=== PATIENT | male | born 1965 | race Caucasian/White ===

== ENCOUNTER 2023-09-12 10:53 | Outpatient (OUT) | payer OTHER, SELFPAY ==
[2023-09-12 11:24] LABS: Basophils Percent Auto 0.6 % (0.2-2.0); Hematocrit 36.6 % (42.0-54.0); Hemoglobin 12.1 g/dL (14.0-18.0); Immature Granulocytes Abs Auto 0.02 10^3/uL (0.00-0.03); Immature Granulocytes Pct Auto 0.3 % (0.0-0.5); Lymphocytes Absolute Auto 1.9 10^3/uL (1.2-3.8); Lymphocytes Percent Auto 30.4 % (20.5-60.0); Mean Corpuscular HGB Conc 33.1 g/dL (29.9-35.2); Mean Corpuscular Hemoglobin 31.9 pg (25.9-34.0); Mean Corpuscular Volume 96.6 fL (80.0-94.0); Mean Platelet Volume 8.7 fL (9.5-13.5); Monocytes Absolute Auto 0.5 10^3/uL (0.3-0.8); Monocytes Percent Auto 8.4 % (1.7-12.0); Neutrophils Absolute Auto 3.8 10^3/uL (1.4-6.5); Neutrophils Percent Auto 60.3 % (43.0-75.0); Platelet Count 276 10^3/uL (150-450); Red Blood Count 3.79 10^6/uL (4.70-6.10); Red Cell Distribution Width 13.1 % (11.0-15.0); White Blood Count 6.3 10^3/uL (4.0-11.0)
[2023-09-12 12:22] LABS: Estimated Average Glucose 88 mg/dL; Glycohemoglobin A1C 4.7 % (4.5-6.2)
[2023-09-12 16:01] LABS: Alanine Aminotransferase 25 U/L (16-63); Albumin Globulin Ratio 0.9; Albumin Level 3.5 g/dL (3.4-5.0); Alkaline Phosphatase 153 U/L (46-116); Anion Gap 8.8; Aspartate Amino Transferase 24 U/L (15-37); BUN Creatinine Ratio 16.3; Bilirubin Total 0.3 mg/dL (0.2-1.0); Carbon Dioxide 28.4 mmol/L (21.0-32.0); Chloride 107 mmol/L (98-107); Chol HDL Ratio 2.5; Cholesterol 125 mg/dL (<=200); Estimated GFR (African America >60 (>=60); Estimated GFR (Non-African Ame >60 (>=60); Free T3 2.34 pg/mL (2.18-3.98); Glucose 103 mg/dL (74-106); HDL Cholesterol 51 mg/dL (40-60); LDL Cholesterol Calculated 62.8 mg/dL; Potassium 4.2 mmol/L (3.5-5.1); Sodium 140 mmol/L (136-145); Thyroid Stimulating Hormone 1.745 uIU/mL (0.358-3.740); Total Protein 7.5 g/dL (6.4-8.2); Triglycerides 56 mg/dL (<=150); VLDL CHOLESTEROL 11.2 mg/dL
== END 2023-09-12 10:54 | disposition home or self-care (01) ==
PROVIDERS: PCP Family Medicine; Visit Provider Family Medicine
DX: Z00.00 Encounter for general adult medical examination without abnormal findings (principal); Z12.5 Encounter for screening for malignant neoplasm of prostate
CPT/HCPCS: 36415; 80053; 80061; 83036; 84436; 84443; 84481; 85025; G0103

== ENCOUNTER 2023-10-21 13:45 | Outpatient (OUT) | payer OTHER, SELFPAY ==
[2023-10-21 14:22] LABS: Basophils Percent Auto 0.4 % (0.2-2.0); Hematocrit 36.6 % (42.0-54.0); Immature Granulocytes Abs Auto 0.01 10^3/uL (0.00-0.03); Immature Granulocytes Pct Auto 0.1 % (0.0-0.5); Lymphocytes Percent Auto 27.5 % (20.5-60.0); Mean Corpuscular HGB Conc 32.8 g/dL (29.9-35.2); Mean Corpuscular Hemoglobin 30.2 pg (25.9-34.0); Mean Platelet Volume 8.4 fL (9.5-13.5); Monocytes Absolute Auto 0.7 10^3/uL (0.3-0.8); Neutrophils Absolute Auto 4.7 10^3/uL (1.4-6.5); Platelet Count 396 10^3/uL (150-450); Red Blood Count 3.98 10^6/uL (4.70-6.10); Red Cell Distribution Width 12.8 % (11.0-15.0); White Blood Count 7.4 10^3/uL (4.0-11.0)
== END 2023-10-21 13:46 | disposition home or self-care (01) ==
LOC: LAB 13:47
PROVIDERS: PCP Family Medicine; Visit Provider Family Medicine
DX: D50.9 Iron deficiency anemia, unspecified (principal)
CPT/HCPCS: 36415; 82728; 83540; 85025

== ENCOUNTER 2023-11-02 12:29 | Outpatient (OUT) | payer OTHER, SELFPAY ==
[2023-11-02 13:08] LABS: INR 0.98; Partial Thromboplastin Time 32.1 sec (22.3-36.2); Prothrombin Time 10.4 sec (9.0-11.6)
[2023-11-02 13:14] LABS: Ammonia <10 umol/L (11-32)
[2023-11-02 13:18] LABS: Basophils Percent Auto 0.2 % (0.2-2.0); Hematocrit 37.1 % (42.0-54.0); Hemoglobin 11.9 g/dL (14.0-18.0); Immature Granulocytes Abs Auto 0.01 10^3/uL (0.00-0.03); Immature Granulocytes Pct Auto 0.2 % (0.0-0.5); Lymphocytes Absolute Auto 0.6 10^3/uL (1.2-3.8); Mean Corpuscular HGB Conc 32.1 g/dL (29.9-35.2); Mean Corpuscular Volume 93.5 fL (80.0-94.0); Mean Platelet Volume 8.7 fL (9.5-13.5); Monocytes Absolute Auto 0.1 10^3/uL (0.3-0.8); Monocytes Percent Auto 2.6 % (1.7-12.0); Neutrophils Absolute Auto 4.7 10^3/uL (1.4-6.5); Platelet Count 252 10^3/uL (150-450); Red Blood Count 3.97 10^6/uL (4.70-6.10); Red Cell Distribution Width 13.4 % (11.0-15.0); White Blood Count 5.5 10^3/uL (4.0-11.0)
[2023-11-02 13:31] LABS: Erythrocyte Sedimentation Rate 91 mm/hr (<=20)
[2023-11-02 13:42] LABS: Alanine Aminotransferase 31 U/L (16-63); Albumin Globulin Ratio 0.7; Alkaline Phosphatase 135 U/L (46-116); Anion Gap 12.3; Aspartate Amino Transferase 28 U/L (15-37); BUN Creatinine Ratio 15.1; Bilirubin Total 0.4 mg/dL (0.2-1.0); Calcium 8.7 mg/dL (8.5-10.1); Carbon Dioxide 27.6 mmol/L (21.0-32.0); Chloride 105 mmol/L (98-107); Estimated GFR (African America >60 (>=60); Estimated GFR (Non-African Ame >60 (>=60); Globulin 4.4 g/dL; Glucose 99 mg/dL (74-106); Lipase <10.0 U/L (16.0-77.0); Potassium 3.9 mmol/L (3.5-5.1); Sodium 141 mmol/L (136-145); Total Protein 7.4 g/dL (6.4-8.2)
[2023-11-02 13:47] LABS: C Reactive Protein 1.31 mg/dL (<=0.50)
[2023-11-02 15:40] LABS: Occult Blood Positive
[2023-11-02 16:01] LABS: C. Difficile PCR NEGATIVE (NEGATIVE)
== END 2023-11-02 12:30 | disposition home or self-care (01) ==
LOC: LAB 12:31
PROVIDERS: PCP Family Medicine; Visit Provider Family Medicine
DX: D50.9 Iron deficiency anemia, unspecified (principal); K51.00 Ulcerative (chronic) pancolitis without complications
CPT/HCPCS: 36415; 80053; 82140; 83690; 85025; 85610; 85652; 85730; 86140; 87493; G0328

== ENCOUNTER 2024-05-02 11:23 | Outpatient (OUT) | payer OTHER, SELFPAY ==
[2024-05-02 12:25] LABS: Albumin Level 3.4 g/dL (3.4-5.0); Anion Gap 10.5; C Reactive Protein <0.50 mg/dL (<=0.50); Calcium 8.7 mg/dL (8.5-10.1); Carbon Dioxide 28.3 mmol/L (21.0-32.0); Chloride 107 mmol/L (98-107); Estimated GFR (African America >60 (>=60); Estimated GFR (Non-African Ame >60 (>=60); Glucose 109 mg/dL (74-106); Phosphorus 2.4 mg/dL (2.6-4.7); Potassium 3.8 mmol/L (3.5-5.1); Sodium 142 mmol/L (136-145)
[2024-05-02 12:39] LABS: Erythrocyte Sedimentation Rate 79 mm/hr (<=20)
== END 2024-05-02 11:24 | disposition home or self-care (01) ==
LOC: LAB 11:27
PROVIDERS: PCP Family Medicine
DX: M05.79 Rheumatoid arthritis with rheumatoid factor of multiple sites without organ or systems involvement (principal); E55.9 Vitamin D deficiency, unspecified
CPT/HCPCS: 36415; 80069; 82306; 85652; 86140

== ENCOUNTER 2024-10-11 11:40 | Outpatient (OUT) | payer OTHER, SELFPAY ==
[2024-10-11 13:17] LABS: Alanine Aminotransferase 25 U/L (16-63); Albumin Globulin Ratio 0.9; Albumin Level 3.5 g/dL (3.4-5.0); Alkaline Phosphatase 139 U/L (46-116); Anion Gap 13.8; Aspartate Amino Transferase 23 U/L (15-37); BUN Creatinine Ratio 13.9; Bilirubin Total 0.4 mg/dL (0.2-1.0); Calcium 9.4 mg/dL (8.5-10.1); Carbon Dioxide 26.5 mmol/L (21.0-32.0); Chloride 107 mmol/L (98-107); Chol HDL Ratio 2.4; Cholesterol 135 mg/dL (<=200); Estimated GFR (African America >60 (>=60 mL/min/1.73m^2); Estimated GFR (Non-African Ame >60 (>=60 mL/min/1.73m^2); Globulin 4.1 g/dL; Glucose 114 mg/dL (74-106); HDL Cholesterol 57 mg/dL (40-60); LDL Cholesterol Calculated 68.6 mg/dL; Potassium 4.3 mmol/L (3.5-5.1); Sodium 143 mmol/L (136-145); Total Protein 7.6 g/dL (6.4-8.2); Triglycerides 47 mg/dL (<=150); VLDL CHOLESTEROL 9.4 mg/dL
== END 2024-10-11 11:41 | disposition home or self-care (01) ==
LOC: LAB 11:42
PROVIDERS: PCP Family Medicine; Visit Provider Family Medicine
DX: N20.0 Calculus of kidney (principal); E78.5 Hyperlipidemia, unspecified
CPT/HCPCS: 36415; 80053; 80061

== ENCOUNTER 2024-11-14 11:48 | Outpatient (OUT) | payer OTHER, SELFPAY ==
--- NOTE | 2024-11-14 12:15 | XR_ITS ---
The [address] [address] Patient Name: JAM SHANKS MRN: [id number] date: 1965 Sex: M Assigned Patient Location: [facility] Current Patient Location: Accession/Order Number: [id number] Exam Date: 11/14/2024 12:10 Report Date: 11/15/2024 07:13 At the request of: AUDREY BRITO Procedure: XR abdomen 1V EXAMINATION: XR abdomen 1V HISTORY: Kidney Stone COMPARISON: No relevant comparison available. FINDINGS: KIDNEY/URETER - RIGHT: No visible renal or ureteral calcifications. KIDNEY/URETER - LEFT: No visible renal or ureteral calcifications. PELVIS: No visible ureteral calcifications. Any visible calcifications favor phleboliths. BOWEL: No abnormal dilation or deviation. BONES: No acute abnormality. Degenerative spondylosis. Right hip arthroplasty OTHER: Negative. No abnormal gaseous collections. XR/XR abdomen 1V IMPRESSION: No definite urinary tract calculi Electronically authenticated by: KALEIGH CANTOR Date: 11/15/2024 07:13
== END 2024-11-14 11:49 | disposition home or self-care (01) ==
LOC: RAD 11:50
PROVIDERS: PCP Family Medicine; Visit Provider Nurse Practitioner
DX: N20.0 Calculus of kidney (principal)
CPT/HCPCS: 74018

== ENCOUNTER 2024-11-25 12:46 | Outpatient (OUT) | payer OTHER, SELFPAY ==
--- NOTE | 2024-11-25 12:49 | CT_ITS ---
The [address] [address] Patient Name: JAM SHANKS MRN: [id number] date: 1965 Sex: M Assigned Patient Location: CT Current Patient Location: CT Accession/Order Number: [id number] Exam Date: 11/25/2024 13:15 Report Date: 11/25/2024 13:40 At the request of: KARINA RAMÍREZ Procedure: CT abdomen pelvis wo con EXAM: CT abdomen pelvis wo con HISTORY: Ureteral Stone With Hydronephrosis, Kidney Stone COMPARISON: None. TECHNIQUE: Axial soft tissue windows of the abdomen and pelvis with coronal and sagittal reformats. CT dose reduction technique was used including Automated Exposure Control. Findings: Lack of intravenous contrast limits evaluation. Partially visualized patchy consolidation within the right middle and lower lobes. ABDOMEN: The liver, gallbladder, spleen, and adrenal glands are unremarkable. The pancreas is atrophic. Mild nonis a cystic bilateral perinephric fat stranding. Bilateral renal cysts. No left-sided renal stones. Nonobstructing right renal stones. The largest measures 0.4 cm. No renal collecting system or ureteral dilatation bilaterally. Evaluation of the bowel is limited given the absence of oral contrast. There are colonic diverticula. No bowel obstruction. The appendix is nondilated. The aorta is normal caliber. No enlarged abdominal lymph nodes or free abdominal fluid. Pelvis: Evaluation is limited due to streak artifact generated by the right hip arthroplasty. Grossly unremarkable bladder. The prostate is enlarged. No visualized enlarged pelvic lymph nodes. No free pelvic fluid. No aggressive sclerotic or lytic osseous lesions. Multilevel degenerative spondylosis. CT/CT abdomen pelvis wo con IMPRESSION: 1. Patchy consolidation within the right middle and lower lobes concerning for pneumonia. 2. Nonobstructing right renal stones. 3. Other nonemergent findings, as described above. Electronically authenticated by: DAMION LOVE Date: 11/25/2024 13:40
--- OUTSIDE RECORDS SUMMARY | 2024-11-25 13:09 | XMS_ITS | CCD ---
Author Organization [facility] Care Team Providers Care Casting Chipper Name Role Phone Gonzalez Rigo Attending Provider [phone] Jose L Lackey Primary Care Provider Jose L Lackey MD Primary Care Provider [phone] Jose L Lackey MD Primary Care Provider [phone] ZIYAD ., DR DOMINGO Primary Care Unavailable HOY ., DR DOMINGO Consulting Unavailable HOY ., DR DOMINGO Attending Unavailable HOY ., DR DOMINGO Admitting Unavailable HENDERSON, DR KALEIGH Strong Consulting Unavailable HOY ., DR DOMINGO Primary Care Unavailable HOY ., DR DOMINGO Consulting Unavailable HOY ., DR DOMINGO Attending Unavailable HOY ., DR DOMINGO Admitting Unavailable HOY ., DR DOMINGO Primary Care Unavailable HOY ., DR DOMINGO Consulting Unavailable HOY ., DR DOMINGO Attending Unavailable HOY ., DR DOMINGO Admitting Unavailable ZIEBER, DR JENNY Maguire Consulting Unavailable HOY ., DR DOMINGO Primary Care Unavailable ZIEBER, DR JENNY Maguire Consulting Unavailable MARKER ., DR MIRAMONTES Admitting Unavailable MARKER ., DR MIRAMONTES Attending Unavailable MARKER ., DR MIRAMONTES Consulting Unavailable Jose L Lackey MD Primary Care Provider [phone] DAMION MABRY Attending Unavailable DAMION MABRY Referring Unavailable DAMION MABRY Attending Unavailable DAMION MABRY Referring Unavailable Kavon Johnson Attending Unavailable Kavon Johnson Attending Unavailable Zoila Castillo Attending Unavailable Luis Antonio García Attending Unavaila Luis Antonio Bowden Referring Unavaila Luis Antonio Bowden Admitting Unavaila Luis Antonio Bowden Attending Unavaila ble Sarmini, Salmon Talal Referring Unavaila ble Sarmini, Salmon Talal Admitting Unavaila ble Sarmini, Salmon Talal Attending Unavaila ble Sarmini, Salmon Talal Attending Unavaila ble Sarmini, Salmon Talal Attending Unavaila ble Sarmini, Salmon Talal Admitting Unavaila ble Sarmini, Salmon Talal Attending Unavaila ble Sarmini, Salmon Talal Referring Unavaila ble Sarmini, Salmon Talal Admitting Unavaila ble Sarmini, Salmon Talal Attending Unavaila ble HOY, JOSE L M Primary Care Unavailable ENRICO, NIDIA Referring Unavailable HOY, JOSE L M Primary Care Unavailable ENRICO, NIDIA Referring Unavailable HOY, JOSE L M Primary Care Unavailable ENRICO, NIDIA Attending Unavailable ENRICO, NIDIA Referring Unavailable HOY, JOSE L M Primary Care Unavailable HOY, JOSE L M Primary Care Unavailable ENRICO, NIDIA Attending Unavailable HOY, JOSE L M Primary Care Unavailable DARRIAN DUBON Attending Unavailable HOY, JOSE L M Primary Care Unavailable ENRICO, NIDIA Attending Unavailable HOY, JOSE L M Primary Care Unavailable HOY, JOSE L M Primary Care Unavailable ENRICO, NIDIA Attending Unavailable Marcin RAMÍREZ Attending Unavailable Hoy, Jose L Referring Unavailable Sarmini, Salmon Talal Attending Unavaila ble Unavailable Unavailable Unavailable Allergies Allergy Classification Reported Allergen(s) Allergy Type Date of Onset Reaction(s) Facility (2 sources) No Known Medication Allergies; Translations: [No Known Medication Allergies] Propensity to adverse reactions (disorder) [facility] Repository Medications Current Medications Medication Drug Class(es) Dates Sig (Normalized) Sig (Original) atorvastatin 20 mg oral tablet (17 sources) HMG-CoA Reductase Inhibitor take 1 tablet by mouth once daily atorvastatin (LIPITOR) 20 mg tablet Take 20 mg by mouth once daily. Active Comment on above: Take 20 mg by mouth once daily. CHEWABLE MULTI VITAMIN ORAL (17 sources) CHEWABLE MULTI VITAMIN ORAL Take by mouth. Active CHEWABLE MULTI V ITAMIN ORAL Take by mouth. 0 Active Comment on above: Take by mouth. cholecalciferol 0.125 mg oral capsule (17 sources) Vitamin D Cholecalciferol, Vitamin D3, 5,000 unit cap Take 5,000 Units by mouth once daily. patient taking once daily with food Active Comment on above: Take 5,000 Units by mouth once daily. patient taking once daily with food ezetimibe 10 mg oral tablet (17 sources) Dietary Cholesterol Absorption Inhibitor take 1 tablet by mouth once daily ezetimibe (ZETIA) 10 mg tablet Take 10 mg by mouth once daily. Active Comment on above: Take 10 mg by mouth once daily. folic acid 1 mg oral tablet (17 sources) Start: 018 take 1 tablet by mouth once daily folic acid 1 mg tablet Take 1 mg by mouth once daily. 0 08/03/2018 Active Comment on above: Take 1 mg by mouth o nce daily. lisinopril 20 mg oral tablet (17 sources) Angiotensin Converting Enzyme Inhibitor take 1 tablet by mouth once daily lisinopril (ZESTRIL, PRINIVIL) 20 mg tablet Take 20 mg by mouth once daily. Active Comment on above: Take 20 mg by mouth once daily. omeprazole 40 mg delayed release oral capsule (17 sources) Proton Pump Inhibitor take 1 capsule by mouth once daily Omeprazole 40 mg capsule Take 40 mg by mouth once daily. Active Comment on above: Take 40 mg by mouth once daily. sulfaSALAzine 500 mg delayed release oral tablet (17 sources) Aminosalicylate Start: 023 take 2 tablets by mouth four times daily sulfaSALAzine EC (AZULFIDINE EN) 500 mg EC tablet TAKE 2 TABLETS BY MOUTH 4 TIMES A DAY 11/03/2023 Active SULFASALAZINE OR AL Take by mouth. takes 8 pills a days, divided three times daily (3 in am, 3 noon, 2 pm), per certified meeting professional 0 Active Comment on above: Take by mouth. takes 8 pills a days, divided three times daily (3 in am, 3 noon, 2 pm), per certified meeting professional TAKE 2 TABLETS BY MO UT 4 TIMES A DAY turmeric root extract 500 mg cap (8 sources) take 1 tablet by mouth three times daily turmeric root extract 500 mg cap Take 500 mg by mouth once daily. Take one(1) tablet three times daily. Active take 1 tablet by mouth three belkys es daily turmeric root extract 500 mg cap Take 500 mg by mouth once daily. Take one(1) tablet three times daily. 0 Active take 1 tablet by mouth three belkys es daily turmeric root extract 500 mg cap Take by mouth. Take one(1) tablet three times daily. 0 Active Comment on above: Take by mouth. Take one(1) tablet three times daily. vedolizumab 300 mg injection (7 sources) Integrin Receptor Antagonist Start: 08-11-2024 ENTYVIO 300 mg injection 08/11/2024 Active Start: 11-11-2023 End: 05-09-2024 ENTYVIO 300 mg injection as directed every 8 wks 0 11/11/2023 05/09/2024 Discontinued (Discontinued by Patient) Comment on above: as directed every 8 wks Completed/Discontinued Medications Medication Drug Class(es) Dates Sig (Normalized) Sig (Original) 0.4 ml adalimumab 100 mg/ml auto-injector (6 sources) Tumor Necrosis Factor Marita Start: 1 End: 3 JF MARSHALL, PEN 40 mg/0.4 mL pen kit Inject 40 mg subcutaneously every 2 weeks. Prescribed by [facility] : Nel Lebron MD Previously prescr. by Ronald Brown MD 0 02/18/2021 05/04/2023 Discontinued Comment on above: Inject 40 mg subcuta neously every 2 weeks. Prescribed by [facility] : Nel Lebron MD Previously prescr. by Ronald Brown MD azelastine hydrochloride 0.5 mg/ml ophthalmic solution (12 sources) Histamine-1 Receptor Antagonist Start: 2 End: 4 take 1 drop(s) into the eye(s) once daily Azelastine HCl (OPTIVAR) 0.05 % ophthalmic solution INSTILL 1 DROP INTO EYE ONCE DAILY 0 09/18/2022 05/09/2024 Discontinued Comment on above: INSTILL 1 DROP INTO EYE ONCE DAILY 24 hr budesonide 9 mg extended release oral tablet (2 sources) Corticosteroid Start: 0 End: 2 take 1 tablet by mouth once daily UCERIS 9 mg TaDE Take 1 tablet by mouth once daily. 0 01/04/2020 01/29/2022 Discontinued (Discontinued by another Health Care Provider) Comment on above: Take 1 tablet by yamileth once daily. Cetirizine (9 sources) Histamine-1 Receptor Antagonist CETIRIZINE HCL (ZYRTEC ORAL) Take by mouth. 0 Active Comment on above: Take by mouth. dicyclomine hydrochloride 10 mg oral capsule (2 sources) Anticholinergic Start: 3 End: 4 take 1 capsule by mouth four times daily dicyclomine (BENTYL) 10 mg capsule TAKE 1 CAPSULE BY MOUTH 4 TIMES A DAY 0 12/17/2022 03/14/2024 Discontinued Comment on above: TAKE 1 CAPSULE BY MO [facility] 4 TIMES A DAY 0.5 ml etanercept 50 mg/ml prefilled syringe (1 source) Tumor Necrosis Factor Marita Start: 0 End: 1 inject 0.5 mL by subcutaneous injection two times weekly etanercept (ENBREL) 25 mg/0.5 mL (0.5) syrg Indications: Rheumatoid arthritis 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) Inject 0.5 mL subcutaneously two times a week. 8 Syringe 11 12/29/2019 02/20/2021 Discontinued (Changing Therapy/Dosage Form) Comment on above: Inject 0.5 mL subcut aneously two times a week. ferrous sulfate 325 mg oral tablet (2 sources) Start: 4 End: 4 take 1 tablet by mouth every twelve hours ferrous sulfate 325 mg (65 mg iron) tablet Take 1 tablet by mouth every 12 hours. 0 01/06/2024 03/14/2024 Discontinued Comment on above: Take 1 tablet by yamileth every 12 hours. mesalamine 66.7 mg/ml enema (9 sources) Aminosalicylate Start: 2 End: 4 mesalamine (ROWASA) 4 gram/60 mL enema USE 1 ENEMA RECTALLY EVERY DAY AT BEDTIME 0 01/17/2022 03/14/2024 Discontinued Comment on above: USE 1 ENEMA RECTALLY EVERY DAY AT BEDTIME predniSONE 10 mg oral tablet (2 sources) Start: 4 End: 4 predniSONE (DELTASONE) 10 mg tablet PLEASE SEE ATTACHED FOR DETAILED DIRECTIONS 0 12/02/2023 03/14/2024 Discontinued Comment on above: PLEASE SEE ATTACHED FOR DETAILED DIRECTIONS 100 ml zoledronic acid 0.05 mg/ml injection (1 source) Bisphosphonate Start: 4 End: 06-24-202 4 zoledronic acid 5 mg PREMIX piggyback (RECLAST) Problems Active Problems Problem Classification Problem Date Documented Da te Episodic/Chronic Acquired foot deformities (1 source) Talipes planus; Translations: [Flat foot [pes planus] (acquired), unspecified foot] 02-20-2021 Episodic Administrative/social admission (6 sources) Follow-up status; Translations: [Person consulting for explanation of examination or test findings] Episodic Immunizations and screening for infectious disease (1 source) Other specified abnormal immunological findings in serum; Translations: [Other and unspecified nonspecific immunological findings] Episodic Nutritional deficiencies (20 sources) Vitamin D deficiency; Translations: [Vitamin D deficiency, unspecified] Onset: 10-05-2015 10-05-2015 Chronic Osteoarthritis (1 source) Degenerative joint disease involving multiple joints; 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] 02-20-2021 Chronic Osteoporosis (20 sources) Osteoporosis; Translations: [Age-related osteoporosis without current pathological fracture] Onset: 10-19-2018 10-19-2018 Chronic Other acquired deformities (1 source) Ankle joint deformity; Translations: [Unspecified acquired deformity of left lower leg] 02-20-2021 Episodic Other aftercare (20 sources) Patient encounter status; Translations: [Encounter for therapeutic drug level monitoring] Onset: 02-07-2016 02-07-2016 Episodic Other aftercare (2 sources) Drug therapy finding; Translations: [Other detention (current) drug therapy] Episodic Other bone disease and musculoskeletal deformities (1 source) Disorder of bone; Translations: [Other specified disorders of bone density and structure, unspecified site] 09-23-2022 Episodic Other liver diseases (1 source) Alkaline phosphatase raised; Translations: [Abnormal levels of other serum enzymes] 02-11-2024 Episodic Other non-traumatic joint disorders (1 source) Chronic ankle pain; Translations: [Pain in left ankle and joints of left foot] 02-20-2021 Episodic Regional enteritis and ulcerative colitis (20 sources) Ulcerative pancolitis; Translations: [Ulcerative (chronic) pancolitis without complications] Onset: 02-05-2017 02-05-2017 Chronic Residual codes; unclassified (2 sources) At risk for injury; Translations: [Other specified personal risk factors, not elsewhere classified] 08-22-2020 Episodic Residual codes; unclassified (1 source) History of drug therapy; Translations: [Personal history of other drug therapy] 10-05-2024 Episodic Rheumatoid arthritis and related disease (20 sources) Rheumatoid factor positive rheumatoid arthritis; Translations: [Rheumatoid arthritis with rheumatoid factor, unspecified] Onset: 09-12-2015 09-12-2015 Chronic Spondylosis; intervertebral disc disorders; other back problems (2 sources) Other intervertebral disc degeneration, lumbar region; Translations: [Spondylosis without myelopathy or radiculopathy, lumbar region] Onset: 11-27-2022 Chronic Spondylosis; intervertebral disc disorders; other back problems (2 sources) Spinal stenosis, lumbar region without neurogenic claudication; Translations: [Cervicalgia] Onset: 09-26-2022 Episodic Superficial injury; contusion (1 source) Foreign body in hand; Translations: [Superficial foreign body of left hand, sequela] 04-11-2024 Episodic Thyroid disorders (4 sources) Hypothyroidism, unspecified; Translations: [HYPOTHYROIDISM UNSPECIFIED] Onset: 02-11-2023 Chronic Unclassified (3 sources) LOW BACK PAIN, UNSPECIFIED; Translations: [LOW BACK PAIN, UNSPECIFIED] Onset: 11-27-2022 Unclassified (1 source) CONTACT W/AND (SUSP) EXPOS COVID-19; Translations: [CONTACT W/AND (SUSP) EXPOS COVID-19] Onset: 09-26-2022 Past or Other Problems Problem Classification Problem Date Documented Da te Episodic/Chronic Other aftercare (1 source) Other detention (current) drug therapy; Translations: [OTH INTERMEDIATE CURRENT DRUG THERAPY] Onset: 09-26-2022 Episodic Other aftercare (1 source) Long-term current use of drug therapy; Translations: [Encounter for therapeutic drug level monitoring] Onset: 02-07-2016 02-07-2016 Episodic Other circulatory disease (4 sources) Elevated blood-pressure reading, without diagnosis of hypertension; Translations: [ELEVATED BP READING W/O DX HTN] Onset: 09-24-2022 Episodic Screening and history of mental health and substance abuse codes (1 source) Personal history of nicotine dependence; Translations: [PERSONAL HISTORY OF NICOTINE DEPEND] Onset: 09-26-2022 Episodic Unclassified (1 source) LOW BACK PAIN, UNSPECIFIED; Translations: [LOW BACK PAIN, UNSPECIFIED] Onset: 01-09-2023 Results Test Name Value Interpretation Reference Range Facility [facility] 10-05-2024 CNOV Office Visit ([place] ) ----- JAM TOSCANO ([id number]) 1965 M Date Time Provider Department 10/05/24 7:20 AM DARRIAN DUBON During your visit today, we recorded the following information about you: Pulse Blood pressure Weight 66/minute 128/76 77.7 kg Darrian Dubon MD 10/16/2024 7:47 PM Signed FOLLOW UP VISIT Patient's Name: Jam Erwin [facility] [id number] PCP: Jose L Lackey MD [address] [place] [phone] Consult Requested by: Jose L Lackey MD [address] [place] [id number] Other physicians: [facility] prev. Nel Lebron MD (his prev. certified meeting professional left- Ronald Brown MD) ; Now following with Dr. Luis Antonio García Accompanied by: self Interim history: Mr. Toscano is a very nice 59 y.o. gentleman here for f/u visit for Rheumatoid Arthritis and Osteoporosis He follows with IBD, UC, on Entyvio and sulfasalazine; States had liver US and fibroscan, told no fatty liver He is no longer on anti-TNF therapy. 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 Denies serious infections Denies interim infections or fevers Had covid-19, 10/2024, no complications, flu like sympt, did not require hosp, resolved. States it was only couple days. He received Reclast infusion 05/09/2024, well tolerated Denies interim fractures Follows with dentist every 6 months, denies jaw pain or dental problems. He has lower partial Denies upcoming dental work Continues on vitamin D: 5000 international units once daily with meals Taking multivitamin Calcium is in diet and multivitamin 09/23/2022 His main problem has been in IBD and is following with local certified meeting professional for that. Has been on Humira since Sep 2020 (started with 80 mg loading dose and since has been on 40 mg every 2 wks) He was pleased with Enbrel response to his RA and later was switched to Humira, reports has similar benefit and is pleased with response. His certified meeting professional switched him to Humira for optimal mgt of IBD and he feels this has helped his IBD better. Reports still gets 8 BM's a day, does not have BM at night, does not have to wake up from sleep. Has been following with his certified meeting professional for his UC Had colonoscopy 11/22/2021 with reported marked improvement in asc/transv/desc colon and severe active in rectum, histopath with active colitis with erosions. States Dr. Lebron has started him on rectal enemas. Recent colonoscopy with reported active colitis. He tells me that he continues to have multiple BM's; His certified meeting professional prescribed pred. course, completed recently. No jt swelling No new rheum nodules, stable elbows. Denies any am stiffness No jt pains No pain at rest. No extra-articular manifestations Continues to feel stronger and not dropping stuff since on Enbrel. States once in a while, depending on his pillow, may get early am stiffness, short lived. RA med: none from us, he is on Humira per his [facility] He is off Enbrel, was switched to Humira by his certified meeting professional. (previously was on Enbrel 25 mg twice a wk and has been in remission since on Enbrel and very pleased with his treatment regimen) He is on Humira 40 mg every 2 wks by his [facility] He is on sulfasalazine, Humira and mesalamine enemas per his certified meeting professional I have reviewed benefits of a whole food plant based diet He consumes dairy, cheese, sausage, hamburger. I have advised him on avoiding meats and dairy and reviewed reports and patient experience with flare of IBD and RA, as well as gastrointestinal dysbiosis. I advised him on a whole foods plant based diet. 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 He has stopped drinking monster energy drink with water and I advised him to avoid all soda and energy drinks and use natural whole plant based foods for his nourishment instead. States noticed by avoiding dairy, felt much better. Continues to exercise, reported some strengthening exercises with band and being cautious Denies interim infections or fevers Continues on vitamin D: 5000 international units once daily with meals Taking multivitamin Calcium is in diet and multivitamin DXA reviewed with patient DXA August 19, 2018 Lowest (more content not included)... Normal [facility] Ambulatory Visit Summaryon 0 06-13-2024 Ambulatory Visit Summary Ambulatory Visi t Summary SHANTALJAM POMPA :1965 Visit Date:06/13/2024 Ambulatory Visit Instructions Your Diagnosis Debary ulcerative colitis History of colon polyps Elevated alkaline phosphatase level Fatty liver Your Care Team Attending Physician - Ricky ROBLERO, Luis Antonio Tiwari Primary Care Physician - Jose L Lackey MD This Is Your Medications List Contact prescribing physician if questions or concerns Non-Formulary Medication (IC Triamcinolone 0.1% cream) Turmeric atorvastatin (atorvastatin 20 mg Tab) cholecalciferol (cholecalciferol 5000 intl units oral capsule) esomeprazole (Nexium 40 mg Cap-EC) ezetimibe (Zetia 10 mg Tab) folic acid (folic acid 1 mg Tab) hydrOXYzine (hydrOXYzine hydrochloride 25 mg Tab) lisinopril (lisinopril 20 mg Tab) multivitamin with minerals (Multivitamins and Minerals) omeprazole (omeprazole 40 mg Cap-DR) sulfasalazine vedolizumab (Entyvio 300 mg intravenous injection) Procedures Performed Colonoscopy (06/03/2024), Esophagogastroduodenoscop y (06/03/2024), Colonoscopy (02/26/2024), Colonoscopy (03/23/2023), Cystoscopy (02/04/2021), Colonoscopy, Procedure on hip, Procedure on knee. Discharge Vitals Heart Rate (Peripheral) 91 Respiratory Rate 16 Blood Pressure 134/96 Height 168 cm Height 66 in Weight 76 kg Weight 167.2 lb BMI 26.93 Medications What How Much When Why Instructions Unchanged atorvastatin (atorvastatin 20 mg Tab) 1 Tablets By Mouth Every day Contact prescribing physician if questions or concerns Unchanged cholecalciferol (cholecalciferol 5000 intl units oral capsule) By Mouth Every day Contact prescribing physician if questions or concerns Unchanged esomeprazole (Nexium 40 mg Cap-EC) 1 Capsules By Mouth Every day Contact prescribing physician if questions or concerns Unchanged ezetimibe (Zetia 10 mg Tab) 1 Tablets By Mouth Every day Contact prescribing physician if questions or concerns Unchanged folic acid (folic acid 1 mg Tab) 1 Tablets By Mouth Every day Contact prescribing physician if questions or concerns Unchanged hydrOXYzine (hydrOXYzine hydrochloride 25 mg Tab) By Mouth 4 times a day Contact prescribing physician if questions or concerns Unchanged lisinopril (lisinopril 20 mg Tab) 1 Tablets By Mouth Every day Contact prescribing physician if questions or concerns Unchanged multivitamin with minerals (Multivitamins and Minerals) 1 tab By Mouth Every day Contact prescribing physician if questions or concerns Unchanged Non-Formulary Medication (IC Triamcinolone 0.1% cream) Contact prescribing physician if questions or concerns Unchanged omeprazole (omeprazole 40 mg Cap-DR) 1 Capsules By Mouth Every day Contact prescribing physician if questions or concerns Unchanged sulfasalazine 500 Milligram By Mouth 4 times a day Contact prescribing physician if questions or concerns Unchanged Turmeric 400 Milligram By Mouth Every day Contact prescribing physician if questions or concerns Unchanged vedolizumab (Entyvio 300 mg intravenous injection) See instructions Debary ulcerative colitis 300 mg/ kg at week 0, 2 & 6 then 300 mg/ kg every 8 weeks Contact prescribing physician if questions or concerns Allergies No Known Medication Allergies Problems Ongoing - Any problem that you are currently receiving treatment for. Acute diarrhea Adenomatous colon polyp Bladder mass Bladder stone BPH with urinary obstruction Continuous severe abdominal pain Elevated alkaline phosphatase level Gross hematuria Heartburn Hematochezia History of colon polyps Hyperlipemia Incomplete bladder emptying Kidney stones Prostate calculus Rectal bleed Ulcerative colitis, universal Debary ulcerative colitis Urethral stone Historical - Any problem that you are no longer receiving treatment for. Extreme obesity Ulcerative colitis Patient Survey You may receive a survey via text or e-mail asking about your office visit. Please share your experience with us by completing your survey. We appreciate your feedback and thank you for choosing us for your care. Cleo Coy [facility] Gastroenterology Office/Clin ic Noteon 06-13-2024 Gastroenterology Office/Clinic Note Gastroenterology Office/Clinic Note Chief Complaint follow up to EGD/Colonoscopy HPI Staff Patient is a 59 year old male who presents today for a follow up to EGD & Colonoscopy on 06/03/24 w/Dr. Jaquez. Taking Entyvio q8 weeks. Last visit 03/04/24 w/Dr. García: Assessment/Plan 1. Ulcerative colitis, universal (K51.00: Ulcerative (chronic) pancolitis without complications) UC History: Severe ulcerative colitis , dx 03/2015, started on sulfasalazine. Colonoscopy 02/26/24- MORALES score 0, Multiple polyps in transverse colon, Couple lesions in the sigmoid colon at 30 cm from the anal verge, with small erosions and abnormal mucosa, biopsied He was initially started on mesalamine and then switched to sulfasalazine. We added Humira in 2018. We increased his Humira to every 3 weeks secondary to suboptimal response and low Humira level. Started Entyvio: 03/2023: q8 weeks Discussed referral to IBD specialist and Colorectal at [facility]- patient declined at this time and would like to repeat colon in 6 months at [facility] He has also RA, no specific therapy for now, follows with Dr. Valente at [place] We discussed that having this lesion in the transverse colon with tubovillous pathology will need closer attention to make sure he is not developing early cancer, we discussed the increased risk of cancer in UC, he had tubular adenoma in 2022 in the transverse colon as well in addition there is a tubular adenoma that was biopsied in the rectum we have to make sure it is completely removed For PCP, please make sure patient is uptodate for the health maintenance given the underlying IBD -Influenza vaccine annually -COVID vaccine -Pneumococcal PCV13 -Pneumococcal PPSV23 Cancer prevention -Skin check: annual check up with dermatology -Colonoscopy: 3 months Other -Anemia/Iron: Ferritin, TIBC, Iron (all yearly): taking Iron -DEXA scan Following with Dr. Valente -Smoking cessation: quit 2011 2. History of colon polyps (Z86.010: Personal history of colonic polyps) Repeat in 3 months- 05/2024 3. Elevated alkaline phosphatase level (R74.8: Abnormal levels of other serum enzymes) FibroScan: E 4.0 CAP 284 F)/F1 S2 EGD: Impression and Plan Gastropathy and bilious fluid in the stomach probable esophageal dysmotility Colonoscopy: Impression and Plan 4 colon polyps and sessile adenomatous patch s/p resections and sampling as above Diverticulosis and internal hemorrhoids Recommendations: Repeat colonoscopy:: Within 1 year . Pathology: Final Diagnosis ( Modified ) A: STOMACH, BIOPSY: - Antral-type gastric mucosa with reactive gastropathy and focal mild chronic inactive gastritis. - No Helicobacter pylori microorganisms identified with immunohistochemical stain. B: COLON, CECUM, POLYPECTOMY: - Benign colonic mucosa with lymphoid aggregates. - No hyperplastic or adenomatous polyp identified. C: COLON, TRANSVERSE, POLYPECTOMY: - Benign colonic mucosa with no significant histopathology. - No hyperplastic or adenomatous polyp identified. D: COLON, DESCENDING, POLYPECTOMY: - Benign colonic mucosa with lymphoid aggregates. - No hyperplastic or adenomatous polyp identified. E: RECTUM, POLYPECTOMY: - Hyperplastic polyp. US liver 05/30/24: IMPRESSION: NEGATIVE LIMITED LIVER ULTRASOUND. Laboratory Results CBC CMP PT PTT Basophil Absolute: 0 E9/L (03/02/24) A/G Ratio: 1.3 (03/02/24) INR: 1.2 (11/04/23) PTT: 34 second(s) (11/04/23) Basophil Auto: 0.6 % (03/02/24) AGAP: 11 mEq/L (03/02/24) PT: 13.7 second(s) High (11/04/23) Eos Absolute: 0 E9/L (03/02/24) Albumin Lvl: 4 gm/dL (03/02/24) Eos Auto: 0 % (03/02/24) Alk Phos: 139 Int._Unit/L High (03/02/24) Hct: 34.5 % Low (03/02/24) ALT: 20 Int._Unit/L (03/02/24) HGB: 11.3 gm/dL Low (03/02/24) AST: 25 Int._Unit/L (03/02/24) Lymph Absolute: 1.8 E9/L (03/02/24) Bili Total: 0.3 mg/dL (03/02/24) Lymph Auto: 27.6 % (03/02/24) BUN: 12 mg/dL (03/02/24) MCH: 29.4 pg (03/02/24) BUN/Creat Ratio: 15 (03/02/24) MCHC: 32.9 gm/dL (03/02/24) Calcium Lvl: 9.4 mg/dL (03/02/24) MCV: 89.5 fL (03/02/24) Chloride: 107 mmol/L (03/02/24) Hickman Absolute: 0.5 E9/L (03/02/24) CO2: 27 mmol/L (03/02/24) Hickman Auto: 8.2 % (03/02/24) Creatinine: 0.8 mg/dL (03/02/24) MPV: 6.9 fL (03/02/24) Globulin: 3 gm/dL (03/02/24) Neutro Absolute: 4.2 E9/L (03/02/24) Glucose Lvl: 97 mg/dL (03/02/24) Neutro Auto: 63.6 % (03/02/24) Potassium Lvl: 3.6 mmol/L (03/02/24) Platelet: 344 E9/L (03/02/24) Sodium Lvl: 141 mmol/L (03/02/24) RBC: 3.9 E12/L Low (03/02/24) Total Protein: 7 gm/dL (03/02/24) RDW: 15.1 % High (03/02/24) WBC: 6.6 E9/L (03/02/24) Physical Exam Vitals & Measurements HR: 91(Peripheral) RR: 16 BP: 134/96 HT: 66 in HT: 168 cm WT: 76 kg WT: 167.2 lb BMI: 26.93 Assessment/Plan 1. Debary ulcerative colitis (K51.00: Ulcerative (chronic) pancolitis without complications) UC History: Severe ulcerative colitis , dx 03/2015, started on (more content not included)... Normal [facility] Comment on above: Result Comment: Elec tronically Signed By: Ricky ROBLERO, Luis Antonio Tiwari\.sania\Date and Time Signed: 06/13/24 10:35 EDT Surgical Pathology Reporton 06-07-2024 Surgical Pathology Report [facility] [address] [place] [address]- Surgical Pathology Report Collected Date/Time: 06/03/2024 10:08 EDT Pathologist: Rodger Hills MD Received Date/Time: 06/03/2024 12:20 EDT Gisele ROBLERO, Asim Jaquez MD, Asim Johnson Surgical Pathology Report - 06/07/2024 10:46 EDT - Auth (Verified) Final Diagnosis A: STOMACH, BIOPSY: - Antral-type gastric mucosa with reactive gastropathy and focal mild chronic inactive gastritis. - No Helicobacter pylori microorganisms identified with immunohistochemical stain. B: COLON, CECUM, POLYPECTOMY: - Benign colonic mucosa with lymphoid aggregates. - No hyperplastic or adenomatous polyp identified. C: COLON, TRANSVERSE, POLYPECTOMY: - Benign colonic mucosa with no significant histopathology. - No hyperplastic or adenomatous polyp identified. D: COLON, DESCENDING, POLYPECTOMY: - Benign colonic mucosa with lymphoid aggregates. - No hyperplastic or adenomatous polyp identified. E: RECTUM, POLYPECTOMY: - Hyperplastic polyp. (Electronic Signature) Yan. Jeana MD 06/07/2024 10:46 Clinical Information UC, history of colon polyps, elevated alkaline phosphate level Pre-Op Diagnosis: UC, history of colon polyps, elevated alkaline phosphate level Procedure: EGD, colonoscopy Post-Op Diagnosis: 1.Gastropathy and bilious fluid in the stomach 2.Probable esophageal dysmotility 3.4 colon polyps and sessile adenomatous patch s/p resections and sampling 4.Diverticulosis and internal hemorrhoids Specimen(s) Received A.Gastric biopsy B.Cecal polyp C.Transverse colon polyp D.Descending colon polyps E.Rectal polyp Gross Description A: Received in formalin labeled with patient name, number, and gastric biopsy are three fragments of moy/pink tissue ranging from 0.2 cm up to 0.6 cm in greatest dimension. Specimen is entirely submitted in one cassette. B: Received in formalin labeled with patient name, number, and cecal polyp is an elongated fragment of moy/pink tissue measuring 1 x 0.3 x 0.1 cm in greatest dimension. Multiple yellow fecal materials measuring up to less than 0.1 cm are present. Specimen is entirely submitted in one cassette. Surgical Pathology Report Collected Date/Time: 06/03/2024 10:08 EDT Pathologist: Rodger Hills MD Received Date/Time: 06/03/2024 12:20 EDT sAim Jaquez MD, MD, Mohamad A. Gross Description C: Received in formalin labeled with patient name, number, and transverse colon polyp is a single fragment of moy/pink tissue measuring 0.5 x 0.3 x 0.1 cm. Specimen is entirely submitted in one cassette. D: Received in formalin labeled with patient name, number, and descending colon polyps are two fragments of moy/pink tissue measuring 0.3 and 1.2 cm in greatest dimension. The specimen is entirely submitted in one cassette. E: Received in formalin labeled with patient name, number, and rectal polyp is a single moy/pink polyp measuring 0.9 x 0.6 x 0.2 cm. The specimen is entirely submitted in one cassette. (DC) DC:[facility] Microscopic Description A-E: Microscopic examination performed unless gross only specified. The use of one or more reagents in the above tests is regulated as an analyte specific reagent (ASR). The test or tests are ordered following initial H&E microscopic examination. The performance characteristics were determined by the [facility] of [facility]. They have not been cleared or approved by the US Food and Drug Administration. The FDA has determined that such clearance or approval is not necessary. These tests are used for clinical purposes. They should not be regarded as investigational or for research. Appropriate positive and negative controls are performed and are acceptable. Normal [facility] Comment on above: Performed By: #### [id number] #### [facility] [address] [place] [address] Main OR Intraoperative Recor don 06-06-2024 Main OR Intraoperative Record Main OR Intraoperative Record IntraOp Document Type FT Summary Primary Physician: Asim Jaquez MD Finalized Date/Time: 06/06/24 09:08:21 Pt. Name: JAM TOSCANO/Sex: 1965 Male Med Rec #: [id number] Physician: Ricky ROBLERO, Luis Antonio Tiwari Financial #: [id number] Pt. Type: O Room/Bed: / Admit/Disch: 06/03/24 08:47:05 - 06/03/24 23:59:59 Institution: Case Times FT Entry 1 Patient Times In Room 06/03/24 10:03:00 Out Room 06/03/24 10:39:00 Procedure Times Start 06/03/24 10:07:00 Stop 06/03/24 10:37:00 Anesthesia Times Start 06/03/24 10:03:00 Stop 06/03/24 10:39:00 Time at [place] 06/03/24 10:12:00 Last Modified By: Alonzo RAMESH, Lauren F 06/03/24 10:38:12 General Comments: 1008 EGD completed. /,RN 1011 Colonoscopy started. /MD,RN 06/06/24 Chart opened for charge review per Trisha Mario RN. [place] Case Attendance FT Entry 1 Entry 2 Entry 3 Case Attendee Kimberly CHÁVEZ, Rajeev Jaquez MD, Asim Rosado RN, Lauren Espinosa Role Performed Anesthesiologist Surgeon - Primary Boat Rigger - Primary Field Liability Generalist Time In 06/03/24 10:03:00 06/03/24 10:03:00 06/03/24 10:03:00 Time Out 06/03/24 10:39:00 06/03/24 10:39:00 06/03/24 10:39:00 Procedure EGD AND COLONOSCOPY(.) EGD AND COLONOSCOPY(.) EGD AND COLONOSCOPY(.) Comments Dr. Ramos supervising case Last Modified By: Alonzo RN, Lauren Rosado RN, Lauren Rosado RN, Lauren F 06/03/24 10:38:18 F 06/03/24 10:38:18 F 06/03/24 10:38:18 Entry 4 Entry 5 Case Attendee Jeniffer OLMSTEAD, Jennifer Arrieta Role Performed Scrub - Primary Staff - Other Time In 06/03/24 10:03:00 06/03/24 10:28:00 Time Out 06/03/24 10:39:00 06/03/24 10:39:00 Procedure EGD AND COLONOSCOPY(.) EGD AND COLONOSCOPY(.) Comments help in room Last Modified By: Lauren Rosado RN, RN, Madaline F 06/03/24 10:38:18 F 06/03/24 10:38:18 Perioperative Protocols FT Pre-Care Text: Implements protective measures prior to operative or invasive procedure, confirms identity before the operative or invasive procedure, verifies operative procedure, surgical site, and laterality Entry 1 Procedure(s) EGD AND COLONOSCOPY(.) Patient Identity Birthday, ID Band Verified (select at Check, Patient least 2): Participation Consents / H and P Anesthesia Consent, Operative Site N/A Verified HandP, Surgery/Procedure Marking Verified Consent Surgical Site No Laterality Verified n/a Verified Procedure Verified Yes Correct Patient Yes Position Verified Availability Equipment, Medication Prep Dry n/a Verified (If Applicable) PreOp Antibiotic No Time Out Rajeev Hou Given Participants Gisele Nguyen MD, Asim Arroyo, Alonzo RAMESH, Lauren Jeniffer CST, Claire Villalobos Time Out Complete 06/03/24 10:05:00 Outcomes Met? Yes Last Modified By: Lauren Rosado RN 06/03/24 10:05:43 Post-Care Text: The patient is free from signs and symptoms of injury caused by extraneous objects Allergy Information FT Pre-Care Text: Verifies allergies Entry 1 Allergies Reviewed? Yes Allergies Reviewed Self/Patient With Outcomes Met? Yes Last Modified By: Lauren Rosado RN 06/03/24 10:05:50 Post-Care Text: The patient received appropriate medication(s) safely administered during the perioperative period Surgical Procedures FT Entry 1 Procedure Description Procedure EGD AND COLONOSCOPY Modifiers . Surgeon Description EGD with gastric biopsy. Colonoscopy with cecal polypectomy, transverse colon polypectomy, descending colon polypectomy x2, rectal polypectomy. Primary Procedure Yes Primary Surgeon Gisele ROBLERO, Asim Arroyo Start 06/03/24 10:07:00 Stop 06/03/24 10:37:00 Anesthesia Type General Surgical Service Gastroenterology Wound Class 2 - Clean-Contaminated Last Modified By: Lauren Rosado RN 06/03/24 10:38:17 General Case Data FT Pre-Care Text: Classifies surgical wound, implements aseptic technique, initiates traffic control Entry 1 Case Information OR ENDO 1 FT Case Level Level 2 Wound Class 2 - Clean-Contaminated Specialty Gastroenterology ASA Class 3 Preop Diagnosis UC, history of colon Postop Same As Preop No polyps, elevated alkaline phosphate level Postop Diagnosis EGD- fundic gland Outcomes Met? Yes polyps, gastropathy, duodenitis. Colonoscopy- diverticulosis, cecal polyp, transverse colon polyp, descending colon polyps x2, rectal polyp Last Modified By: Alonzo RAMESH, Lauren Espinosa 06/03/24 10:35:16 Post-Care Text: The patient is free from signs and symptoms of infection Skin Assessment (Pre Procedure) FT Pre-Care Text: Implements protective measures to prevent skin/ tissue injury due to thermal or mechanical sources Evaluates for signs and symptoms of physical injury to skin and tissue Entry 1 Skin Integrity Intact, [place], Warm, and Skin Abnormality No Dry Outcomes Met? Yes Last Modified By: (more content not included)... Normal [facility] Colonoscopy Procedure Report on 06-03-2024 Esophagogastroduodenoscop y EGD Patient: JAM TOSCANO Age: 59 years Sex: Male : 1965 Associated Diagnoses: None Author: Asim Jaquez MD Pre-Procedure Procedure Date 06/03/2024 10:40:00 . Procedure Type: Esophagogastroduodenoscop y with biopsy. Procedure provider Performed by Asim Jaquez MD. Current history and physical Documented on chart. Informed Consent After discussing the rationale, risks and benefits, and alternatives to this procedure, the patient provided signed consent for the procedure. Pre-procedure diagnosis: dyspepsia. Medications (Selected) Inpatient Medications Ordered Lactated Ringers IV Dawn 1000 mL 1,000 mL: 1,000 mL, IV, 100 mL/hr, Routine, Start date 06/03/24 9:02:00 EDT, 10 hour(s), Total volume (mL): 1,000 Sodium Chloride 0.9% IV Dawn 1000 mL 1,000 mL: 1,000 mL, IV, 20 mL/hr, Routine, Start date 06/03/24 6:43:00 EDT, 50 hour(s), Total volume (mL): 1,000 Prescriptions Prescribed Entyvio 300 mg intravenous injection: See Instructions, 300 mg/kg at week 0, 2 & 6 then 300 mg/kg every 8 weeks, # 1 EA, Refills(s) 6, called to pharmacy (Rx) Nexium 40 mg Cap-EC: 40 mg = 1 cap(s), Oral, Daily, # 90 cap(s), Refills(s) 3, called to pharmacy (Rx) Documented Medications Documented Multivitamins and Minerals: 1 tab, Oral, Daily, Refill(s) 0, Prophylaxis Turmeric: 400 mg, Oral, Daily, Refill(s) 0, Prophylaxis Zetia 10 mg Tab: 10 mg = 1 tab(s), Oral, Daily, Refills(s) 0, High cholesterol atorvastatin 20 mg Tab: 20 mg = 1 tab(s), Oral, Daily, Refills(s) 0, High cholesterol cholecalciferol 5000 intl units oral capsule: Oral, Daily, Refills(s) 0, Prophylaxis folic acid 1 mg Tab: 1 mg = 1 tab(s), Oral, Daily, Refills(s) 0, Prophylaxis lisinopril 20 mg Tab: 20 mg = 1 tab(s), Oral, Daily, Refills(s) 0, High blood pressure omeprazole 40 mg Cap-DR: 40 mg = 1 cap(s), Oral, Daily, Refills(s) 0 sulfasalazine: 500 mg, Oral, QID, Refills(s) 0 Anticoagulant/antiplatele t None. ASA Classification: Class II. . Monitoring: See anesthesia record. . Procedure The procedure was performed in the hospital. See anesthesia record for sedation given during procedure. The patient was positioned starting in the left lateral decubitus position and with safety measures. Endoscope type used was an adult-size, introduced orally, advanced to the 2nd portion of the duodenum. No difficulty was encountered during the procedure. Views were excellent. The patient tolerated the procedure well. Findings 1. Normal esophagus. Z line at 40 cm. ? esophageal dysmotility 2. Erythema in the antrum, mild patchy. Otherwise normal stomach. Biopsies of the stomach were taken to rule out H. pylori. Bilious fluid in the stomach 3. Normal duodenum. Images Procedure images: [id number]__[id number]_video__[id number].jpg [id number]__[id number].jpg [id number]__[id number].jpg [id number]__[id number].jpg [id number]__[id number].jpg [id number]_video__[id number].jpg . Post-Procedure Complications: none. Estimated blood loss: minimal. Specimens: sent to pathology. Devices/ implants: none left in place. Impression and Plan Gastropathy and bilious fluid in the stomach probable esophageal dysmotility Recommendations: -Resume previous diet -Resume home medications -Await pathology results, follow in GI clinic in 1-2 after discharge EGd with bx Normal [facility] Comment on above: Other Comment: Sheila trinh Attachment - attachment storage system not supported [id number] [facility] Attachment - attachment storage system not supported [id number] Can be [facility] Attachment - attachment storage system not supported [id number] Can be [facility] Attachment - attachment storage system not supported [id number] Can be [facility] Attachment - attachment storage system not supported [id number] Can be viewed in source systemMissing Attachment - attachment storage system not supported [id number] Can be viewed in source systemMissing Attachment - attachment storage system not supported [id number] Can be viewed in source systemMissing Attachment - attachment storage system not supported [id number] Can be viewed in source systemMissing Attachment - attachment storage system not supported [id number] Can be viewed in source system Discharge Instructionson Discharge Instructions Discharge Instruc tions JAM TOSCANO :1965 Visit Date:06/03/2024 Inpatient Discharge Instructions Your Care Team Admitting Physician - Luis Antonio García MD Referring Physician - Luis Antonio García MD Reason for Your Visit UC, HX OF COLON POLYPS, ELEVATED [place]AL[place] PHOSPHATE LEVEL Tests Performed Pathology Tissue Exam -- Results Pending -- Please visit your patient portal for your results or contact your primary care physician. This Is Your Medications List Turmeric atorvastatin (atorvastatin 20 mg Tab) cholecalciferol (cholecalciferol 5000 intl units oral capsule) esomeprazole (Nexium 40 mg Cap-EC) ezetimibe (Zetia 10 mg Tab) folic acid (folic acid 1 mg Tab) lisinopril (lisinopril 20 mg Tab) multivitamin with minerals (Multivitamins and Minerals) omeprazole (omeprazole 40 mg Cap-DR) sulfasalazine vedolizumab (Entyvio 300 mg intravenous injection) Procedure History Colonoscopy (02/26/2024), Colonoscopy (03/23/2023), Cystoscopy (02/04/2021), Colonoscopy, Hernia repair, Procedure on hip, Procedure on knee. Discharge Vitals Temperature (Temporal Artery) 36.5 ?C Heart Rate (Monitored) 70 Respiratory Rate 14 Blood Pressure 94/66 Height 168 cm Weight 76 kg BMI 26.93 What to do next Instructions From Your Doctor No qualifying data available. Previously Scheduled Follow-Up Appointments Thursday 9:15 AM EDT With: Ricky ROBLERO, Luis Antonio Tiwari Where: [facility] Normal [facility] Comment on above: Result Comment: Elec tronically Signed By: Jose RAMESH, Mary Lou\.sania\Date and Time Signed: 06/03/24 10:51 EDT Main OR PACU I Recordon 05-16 Main OR PACU I Record Main OR PACU I Rec ord PACU Phase I Document Type FT Summary Primary Physician: Gisele ROBLERO, Asim Arroyo Finalized Date/Time: 06/03/24 14:21:42 Pt. Name: JAM TOSCANO Angel Ballard./Sex: 1965 Male Med Rec #: [id number] Physician: Luis Antonio García MD Financial #: [id number] Pt. Type: O Room/Bed: / Admit/Disch: 06/03/24 08:47:05 - Institution: Case Times PACU I FT Pre-Care Text: Identifies barriers to communication and implements measures to provide psychological support Develops individualized plan of care, and ensures continuity of care Maintains patient's dignity and privacy, and maintains patient confidentiality Identifies and reports philosophical, cultural, and spiritual beliefs and values Identifies individual values and wishes concerning care Implements aseptic technique, and administers prescribed antibiotic therapy and immunizing agents as ordered Evaluates postoperative tissue perfusion Implements thermoregulation measures, and monitors body temperature Evaluates postoperative respiratory status Evaluates postoperative cardiac status Evaluates postoperative neurological status Assesses pain control, collaborated in initiating patient-controlled analgesia and implements alternative methods of pain control Verifies allergies, administers prescribed medications and solutions, evaluates response to medications Entry 1 In PACU I 06/03/24 10:41:00 Discharge from PACU 06/03/24 11:11:00 I Outcomes Met? Yes Last Modified By: Mary Lou Garcia RN 06/03/24 14:21:26 Post-Care Text: The patient demonstrates knowledge of the expected response to the operative or invasive procedure The patient's care is consistent with the individualized perioperative plan of care The patient's right to privacy is maintained The patient's value system, lifestyle, ethnicity, and culture are considered, respected, and incorporated into the perioperative plan of care The patient participates in decisions affecting his or her perioperative plan of care The patient is free from signs and symptoms of infection The patient has wound/tissue perfusion consistent with or improved from baseline levels established preoperatively The patient is at or returning to normothermia at the conclusion of the immediate postoperative period The patient's respiratory function is consistent with or improved from baseline levels established preoperatively The patient's cardiovascular status is consistent with or improved from baseline levels established preoperatively The patient's cardiovascular status is consistent with or improved from baseline levels established preoperatively The patient demonstrates and/or reports adequate pain control throughout the perioperative period The patient received appropriate medication(s), safely administered during the perioperative period Acuity Level PACU I FT Entry 1 Start Time 06/03/24 10:41:00 Stop Time 06/03/24 11:11:00 Acuity Level Acuity Level I Last Modified By: Mary Lou Garcia RN 06/03/24 14:21:38 Finalized By: Mary Lou Garcia RN Document Signatures Signed By: Mary Lou Garcia RN 06/03/24 14:21 Normal [facility] Main OR Preoperative Recordo n 06-03-2024 Main OR Preoperative Record Main OR Preoperative Record Holding Area Document Type FT Summary Primary Physician: Asim Jaquez MD Finalized Date/Time: 06/03/24 09:08:09 Pt. Name: JAM TOSCANO/Sex: 1965 Male Med Rec #: [id number] Physician: Ricky ROBLERO, Luis Antonio Tiwari Financial #: [id number] Pt. Type: O Room/Bed: / Admit/Disch: 06/03/24 08:47:05 - Institution: Case Times Holding FT Pre-Care Text: Verifies consent for planned procedure, identifies individual values and wishes concerning care, includes family members in perioperative teaching Secures patient's records' belongings, and valuables, maintains patient's dignity and privacy, and maintains patient confidentiality Entry 1 In Holding 06/03/24 08:59:00 Outcomes Met? Yes Last Modified By: Jaguar Herrera RN 06/03/24 09:00:10 Post-Care Text: The patient participates in decisions affecting his or her perioperative plan of care The patient's right to privacy is maintained Surgery Checklist FT Entry 1 Patient Birthday, ID Band Procedure History and Physical, Identification: Check, Patient Verification: Surgical Consent, With Participation Patient NPO after Midnight: No Date/Time: 06/03/24 04:30:00 Results Reviewed clear liquid bowel Personal Items: Glasses Comments: results Personal Items glasses, clothing, Limitations: none Comment: shoes, right hip replacement, metal in left hand, bilateral knee replacement Complaints of Pain: No Pain Comment: denies pain at this time Operative Site n/a Marked By: n/a Marking: Location: n/a Availability Equipment Verified: Does Patient Smoke No If Yes to Smoking. former Cigars or Cigarettes. How much per day? Patient states Yes Comment - Adult Anthony- ride only postop adult Supervision supervision available Case Cancelled in No Holding Area see comments below for reason Last Modified By: Jaguar Herrera RN 06/03/24 09:08:08 General Comments: pt finished bowel prep at 0430, per patient nothing to eat or drink since MSRN Finalized By: Jaguar Herrera RN Document Signatures Signed By: Jaguar Herrera RN 06/03/24 09:02 Jaguar Herrera RN 06/03/24 09:08 [facility] US Liveron 06-01-2024 US Liver Exam Date/Time: 05/30/2024 09:39 EDT Reason for Exam: K51.00;Elevated LFTs Report IMPRESSION: NEGATIVE LIMITED LIVER ULTRASOUND. EXAM: US Liver DATE: 05/30/2024 9:20 AM CLINICAL HISTORY: Elevated LFTs, K51.00. COMPARISON: CT abdomen and pelvis 11/04/2023. TECHNIQUE: Transabdominal ultrasound of the right upper quadrant was performed. FINDINGS: The study is mild to moderately limited by the patient's body habitus and upper abdominal bowel gas. The pancreas is essentially not visualized. The gallbladder, visualized liver, right kidney, and great vessels are unremarkable. There is no significant gallbladder distention, wall thickening, calculi, sludge, pericholecystic fluid, biliary dilatation, or ascites identified. The common duct measures approximately 3 to 4 mm at the emmanuel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 -DEXA scan [facility] -Smoking cessation: quit 2011 2. Adenomatous colon polyp (D12.6: Benign neoplasm of colon, unspecified) repeat colonoscopy Colonoscopy: Impression and Plan 1. No significant inflammation, normal vascular pattern through the colon suggestive of no active inflammation, Morales score 0 in the whole colon 2. 5 mm sessile polyp in the transverse colon, resected with cold snare completely and retrieved 3. Pancolonic diverticulosis, most prominent in the left side 4. Couple lesions in the sigmoid colon at 30 cm from the anal verge, with small erosions and abnormal mucosa, biopsied. In addition small erosion with granular mucosa around as well in the rectum at 20 cm, biopsied. 5. Otherwise, random biopsies were taken from right colon transverse colon left colon and rectum every 10 cm and NBI light was used in addition for dysplasia surveillance 6. Normal Terminal ileum Pathology: Final Diagnosis (Verified) A: RIGHT COLON, BIOPSY: - Benign colonic mucosa with a single lymphoid aggregate. - No evidence of chronic, active or microscopic colitis identified. B: COLON, TRANSVERSE, BIOPSY: - Benign colonic mucosa with a single lymphoid aggregate. - No evidence of chronic, active or microscopic colitis identified. C: RECTUM, BIOPSY: - Fragments of tubular adenoma and hyperplastic polyp. D: COLON, LEFT, BIOPSY: - Benign colonic mucosa with no significant histopathology. - No evidence of chronic, active or microscopic colitis identified. E: COLON, TRANSVERSE, POLYPECTOMY: - Fragments of tubulovillous adenoma. F: COLON, SIGMOID AT 30 CM, BIOPSY: - Fragments of hyperplastic polyp with ulceration. G: RECTUM, ULCER AT 20 CM, BIOPSY: - Hyperplastic polyp. - No ulcerative tissue present. Laboratory Results CBC CMP PT PTT Basophil Absolute: 0 E9/L (03/02/24) A/G Ratio: 1.3 (03/02/24) INR: 1.2 (11/04/23) PTT: 34 second(s) (11/04/23) Basophil Auto: 0.6 % (03/02/24) AGAP: 11 mEq/L (03/02/24) PT: 13.7 second(s) High (11/04/23) Eos Absolute: 0 E9/L (03/02/24) Albumin Lvl: 4 gm/dL (03/02/24) Eos Auto: 0 % (03/02/24) Alk Phos: 139 Int._Unit/L High (03/02/24) Hct: 34.5 % Low (03/02/24) ALT: 20 Int._Unit/L (03/02/24) HGB: 11.3 gm/dL Low (03/02/24) AST: 25 Int._Unit/L (03/02/24) Lymph Absolute: 1.8 E9/L (03/02/24) Bili Total: 0.3 mg/dL (03/02/24) Lymph Auto: 27.6 % (03/02/24) BUN: 12 mg/dL (03/02/24) MCH: 29.4 pg (03/02/24) BUN/Creat Ratio: 15 (03/02/24) MCHC: 32.9 gm/dL (03/02/24) Calcium Lvl: 9.4 mg/dL (03/02/24) MCV: 89.5 fL (03/02/24) Chloride: 107 mmol/L (03/02/24) Hickman Absolute: 0.5 E9/L (03/02/24) CO2: 27 mmol/L (03/02/24) Hickman Auto: 8.2 % (03/02/24) Creatinine: 0.8 mg/dL (03/02/24) MPV: 6.9 fL (03/02/24) Globulin: 3 gm/dL (03/02/24) Neutro Absolute: 4.2 E9/L (03/02/24) Glucose Lvl: 97 mg/dL (03/02/24) Neutro Auto: 63.6 % (03/02/24) Potassium Lvl: 3.6 mmol/L (03/02/24) Platelet: 344 E9/L (03/02/24) Sodium Lvl: 141 mmol/L (03/02/24) RBC: 3.9 E12/L Low (03/02/24) Total Protein: 7 gm/dL (03/02/24) RDW: 15.1 % High (03/02/24) WBC: 6.6 E9/L (03/02/24) History of Present Illness Still taking Entyvio [id number], patient states this is the best hes felt in years No issues at this time Dr. Valente was concerned for elevated liver enzymes- Elevated for the past year Reviewed and Discussed labs/colonoscopy and biopsy with the patient. Review of Systems PHQ Score Initial Depression Screen Score: 0 SCORE All systems reviewed, negative; Except for above Physical Exam Vitals & Measurements HR: 78(Peripheral) RR: 18 BP: 126/80 HT (more content not included)... Normal [facility] Comment on above: Result Comment: Elec tronically Signed By: Ricky ROBLERO, Luis Antonio Tiwari\.br\Date and Time Signed: 03/04/24 09:28 EDT\.br\Electronically Co-Signed By: Naz Gupta MA\.br\Date and Time Co-Signed: 03/04/24 09:23 EDT IntraOperative Documentson 0 03-04-2024 IntraOperative Documents [id number] Normal [facility] CBC w/ Auto Diffon 4 Basophils/100 WBC (Bld) 0.6 % Normal 0.0-2.0 [facility] Comment on above: Performed By: #### 2 294160, [id number], [id number] #### [facility] [address] [place] [address] Basophils/Leukocytes Auto (Bld) [Pure # fraction] 0.0 E9/L Normal 0.0-0.2 [facility] Comment on above: Performed By: #### 2 808347, 0368583, [id number] #### [facility] [address] [place] [address] Eosinophils (Bld) [#/Vol] 0.0 E9/L Normal 0.0-0.5 [facility] Comment on above: Performed By: #### 2 549452, 4071158, [id number] #### [facility] [address] [place] [address] Eosinophils/100 WBC (Bld) 0.0 % Normal 0.0-8.0 [facility] Comment on above: Performed By: #### 2 085549, 2263197, 85654135 #### [facility] [address] [place] [address] Erythrocyte distribution width (RBC) [Ratio] 15.1 % High 10.9-14.2 [facility] Comment on above: Performed By: #### 2 158311, 9590897, 46444611 #### [facility] [address] [place] [address] Hematocrit (Bld) [Volume fraction] 34.5 % Low 37.7-49.0 [facility] Comment on above: Performed By: #### 2 525320, 1752931, [id number] #### [facility] [address] [place] [address] Hemoglobin (Bld) [Mass/Vol] 11.3 g/dL Low 13.5-17.5 [facility] Comment on above: Performed By: #### 2 250108, 2748512, [id number] #### [facility] [address] [place] [address] Lymphocytes (Bld) [#/Vol] 1.8 E9/L Normal 1.0-4.0 [facility] Comment on above: Performed By: #### 2 665851, 2967910, 63439874 #### [facility] [address] [place] [address] Lymphocytes/100 WBC (Bld) 27.6 % Normal 14.0-50.0 [facility] Comment on above: Performed By: #### 2 753295, 8411035, [id number] #### [facility] [address] [place] [address] MCH (RBC) [Entitic mass] 29.4 pg Normal 27.0-34.0 [facility] Comment on above: Performed By: #### 2 996485, 3459495, 23727416 #### [facility] [address] [place] [address] MCHC (RBC) [Mass/Vol] 32.9 g/dL Normal 31.4-36.0 [facility] Comment on above: Performed By: #### 2 741231, 1737745, 71246067 #### [facility] [address] [place] [address] MCV (RBC) [Entitic vol] 89.5 fL Normal 80.0-100.0 [facility] Comment on above: Performed By: #### 2 839118, 0406216, 78796232 #### [facility] [address] [place] [address] Monocytes (Bld) [#/Vol] 0.5 E9/L Normal 0.2-1.0 [facility] Comment on above: Performed By: #### 2 568401, 1511816, 24842427 #### [facility] [address] [place] [address] Neutrophils (Bld) [#/Vol] 4.2 E9/L Normal 2.0-7.5 [facility] Comment on above: Performed By: #### 2 578711, 2752458, 56558513 #### [facility] [address] [place] [address] Neutrophils/100 WBC (Bld) 63.6 % Normal 36.0-75.0 [facility] Comment on above: Performed By: #### 2 529183, 6885003, 91209797 #### [facility] [address] [place] [address] Platelet 344.0 E9/L Normal 150.0-500. 0 [facility] Comment on above: Performed By: #### 2 737408, 7180389, 28424485 #### [facility] [address] [place] [address] Platelet mean volume (Bld) [Entitic vol] 6.9 fL Normal 6.4-10.8 [facility] Comment on above: Performed By: #### 2 460642, 8460727, 98522189 #### [facility] [address] [place] [address] RBC (Bld) [#/Vol] 3.9 E12/L Low 4.3-5.9 [facility] Comment on above: Performed By: #### 2 397112, 1414631, 99174857 #### [facility] [address] [place] [address] WBC corrected for nucl RBC Auto (Bld) [#/Vol] 6.6 E9/L Normal 4.0-11.0 [facility] Comment on above: Performed By: #### 2 827769, 4158872, 24466610 #### [facility] [address] [place] [address] CMPon 03-02-2024 Albumin [Mass/Vol] 4.0 g/dL Normal 3.3-5.0 [facility] Comment on above: Performed By: #### 2 000857, 3323086, 93441423 #### [facility] [address] [place] [address] Albumin/Globulin (S) [Mass conc ratio] 1.3 Normal 1.1-2.2 [facility] Comment on above: Performed By: #### 2 639494, 9025845, 29124323 #### [facility] [address] [place] [address] ALP [Catalytic activity/Vol] 139 Int._Unit/L High 21-98 [facility] Comment on above: Performed By: #### 2 484863, 4405329, 27645943 #### [facility] [address] [place] [address] ALT No additional P-5'-P [Catalytic activity/Vol] 20 Int._Unit/L Normal 6-46 [facility] Comment on above: Performed By: #### 2 571604, 8315745, 01949891 #### [facility] [address] [place] [address] Anion gap [Moles/Vol] 11 mmol/L Normal 6-16 [facility] Comment on above: Performed By: #### 2 729992, 4378256, 84832381 #### [facility] [address] [place] [address] AST [Catalytic activity/Vol] 25 Int._Unit/L Normal 5-43 [facility] Comment on above: Performed By: #### 2 771764, 5870252, 22473452 #### [facility] [address] [place] [address] Bilirubin [Mass/Vol] 0.3 mg/dL Normal 0.0-1.1 [facility] Comment on above: Performed By: #### 2 199178, 1014862, 85200339 #### [facility] [address] [place] [address] Calcium [Mass/Vol] 9.4 mg/dL Normal 8.9-11.1 [facility] Comment on above: Performed By: #### 2 785257, 7755749, 50693210 #### [facility] [address] [place] [address] Chloride [Moles/Vol] 107 mmol/L Normal 101-111 [facility] Comment on above: Performed By: #### 2 970939, 3301466, 44354382 #### [facility] [address] [place] [address] CO2 [Moles/Vol] 27 mmol/L Normal 21-31 [facility] Comment on above: Performed By: #### 2 358539, 3453697, 51382080 #### [facility] [address] [place] [address] Creatinine [Mass/Vol] 0.8 mg/dL Normal 0.5-1.3 [facility] Comment on above: Performed By: #### 2 207002, 4250373, 62452315 #### [facility] [address] [place] [address] Globulin (S) [Mass/Vol] 3.0 g/dL Normal 1.4-4.0 [facility] Comment on above: Performed By: #### 2 302049, 0637999, 14868045 #### [facility] [address] [place] [address] Glucose [Mass/Vol] 97 mg/dL Normal 55-199 [facility] Comment on above: Performed By: #### 2 399907, 7860884, 41060173 #### [facility] [address] [place] [address] Potassium [Moles/Vol] 3.6 mmol/L Normal 3.5-5.3 [facility] Comment on above: Performed By: #### 2 778368, 9377632, 87491724 #### [facility] [address] [place] [address] Protein [Mass/Vol] 7.0 g/dL Normal 6.0-7.8 [facility] Comment on above: Performed By: #### 2 299827, 4781033, 02367164 #### [facility] [address] [place] [address] Sodium [Moles/Vol] 141 mmol/L Normal 135-145 [facility] Comment on above: Performed By: #### 2 428785, 3756698, 21740072 #### [facility] [address] [place] [address] Urea nitrogen [Mass/Vol] 12 mg/dL Normal 5-21 [facility] Comment on above: Performed By: #### 2 397310, 4696706, 12724792 #### [facility] [address] [place] [address] Urea nitrogen/Creatinine [Mass ratio] 15 No Units Normal 10-20 [facility] Comment on above: Performed By: #### 2 428335, 8488164, 32444489 #### [facility] [address] [place] [address] Consent for Treatmenton 02-14 Consent for Treatment [id number] Normal [facility] Progress Note-Physicianon Progress Note-Physician Patient: JAM QUINTANA MRN: Age: 58 years Sex: Male : 1965 Associated Diagnoses: None Author: MD Zabala Ahmad F Postoperative Information Postoperative disposition: Postoperative disposition: To PACU. Optimetrix number: Optimetrix number [id number]. Anesthetic utilized: General. Health Status Allergies: Allergic Reactions (Selected) No Known Medication Allergies Physical Examination VS/Measurements Pain Assessment: Controlled. General: Awake, Alert, Appropriate. Respiratory: Adequate air exchange. Cardiovascular: Stable, Normal peripheral perfusion. Neurological: Normal sensory function, Normal motor function. Assessment Anesthetic outcome No anesthetic complications noted. Adequate pain relief. able to void without difficulty, able to ambulate with assist, tolerating PO intake, no N/V. Review / Management Condition: Stable. Plan Transfer/Discharge: Transfer/Discharge Discharge when meets criteria ( To home ). Normal [facility] Comment on above: Result Comment: Elec tronically Signed By: MD Zabala Ahmad F\.br\Date and Time Signed: 03/02/24 14:23 EDT Progress Note-Physician Patient: JAM QUINTANA MRN: Age: 58 years Sex: Male : 1965 Associated Diagnoses: None Author: MD Zabala Ahmad F Preoperative Information Time patient last ate or drank:=== (npo 8 hours) Anesthesia history: Patient history: No prior anesthesia problems. Re-evaluation prior to induction: Completed, Initial evaluation reviewed. Review of Systems Respiratory: No shortness of breath. Cardiovascular: No chest pain. Hematology/Lymphatics: No bruising tendency, No bleeding tendency. Health Status Allergies: Allergic Reactions (All) No Known Medication Allergies Current medications: (Selected) Prescriptions Prescribed Entyvio 300 mg intravenous injection: See Instructions, 300 mg/kg at week 0, 2 & 6 then 300 mg/kg every 8 weeks, # 1 EA, Refills(s) 6, called to pharmacy (Rx) Flomax 0.4 mg Cap: 0.4 mg = 1 cap(s), Oral, Daily, # 10 cap(s), Refills(s) 0, [id number] 168, cm, 10/23/23 13:41:00 EST, Height/Length Dosing, 75.1, kg, 10/23/23 13:41:00 EST, Weight Dosing Humira Pen Crohns/Ulcer Colitis/Hidradenitis Suppurativa Starterr Pack 80 mg/0.8 mL subcutaneous ki...: See Instructions, Inject 160 mg on day one, Inject 80 mg on day 15, # 1 kit(s), Refills(s) 0, [id number], 167, cm, 09/04/20 8:15:00 EDT, Height/Length Dosing, 75.8, kg, 09/04/20 8:15:00 EDT, Weight Dosing Zofran ODT 4 mg Tab-Dis: 4 mg = 1 tab(s), Oral, q8hr, PRN Nausea/Vomiting, # 30 tab(s), Refills(s) 0, [id number], 168, cm, 10/23/23 13:41:00 EST, Height/Length Dosing, 75.1, kg, 10/23/23 13:41:00 EST, Weight Dosing mesalamine 4 g/60 mL rectal enema: = 1 EA, Rectal, Once a day (at bedtime), # 30 EA, Refills(s) 3, [id number], 168, cm, 03/23/23 8:23:00 EDT, Height/Length Dosing, 81.1, kg, 03/23/23 8:23:00 EDT, Weight Dosing mesalamine 4 g/60 mL rectal enema: = 1 EA, Rectal, Once a day (at bedtime), # 30 EA, Refills(s) 6, [id number], 168, cm, 10/16/22 13:49:00 EST, Height/Length Dosing, 80.6, kg, 10/16/22 13:49:00 EST, Weight Dosing omeprazole 40 mg Cap-DR: 40 mg = 1 cap(s), Oral, Daily, # 30 cap(s), Refills(s) 11, [id number], 167, cm, 09/04/20 8:15:00 EDT, Height/Length Dosing, 75.8, kg, 09/04/20 8:15:00 EDT, Weight Dosing sulfasalazine 500 mg oral enteric coated tablet: 1,000 mg = 2 tab(s), Oral, QID, X 30 day(s), # 240 tab(s), Refills(s) 11, Pharmacy: [id number], 168, cm, 04/01/23 8:58:00 EDT, Height/Length Dosing, 81, kg, 04/01/23 8:58:00 EDT, Weight Dosing Documented Medications Documented Multivitamins and Minerals: 1 tab, Oral, Daily, Refill(s) 0, Prophylaxis Turmeric: 400 mg, Oral, Daily, Refill(s) 0 Zetia 10 mg Tab: 10 mg = 1 tab(s), Oral, Daily, Refills(s) 0, High cholesterol atorvastatin 20 mg Tab: 20 mg = 1 tab(s), Oral, Daily, Refills(s) 0, High cholesterol cholecalciferol 5000 intl units oral capsule: Oral, Daily, Refills(s) 0, Prophylaxis dicyclomine 10 mg Cap: 10 mg = 1 cap(s), Oral, QID, Refills(s) 0 folic acid 1 mg Tab: 1 mg = 1 tab(s), Oral, Daily, Refills(s) 0, Prophylaxis lisinopril 20 mg Tab: 20 mg = 1 tab(s), Oral, Daily, Refills(s) 0, High blood pressure ondansetron 4 mg Tab: 20 EA, TAKE 1 TABLET BY MOUTH EVERY 6 HOURS NEEDED FOR NAUSEA AND VOMITING, Refills(s) 0 Problem list: All Problems Hyperlipemia / SNOMED CT 33578618 / Confirmed Rectal bleed / SNOMED CT 941625148 / Confirmed Heartburn / SNOMED CT 40668487 / Confirmed Ulcerative colitis, universal / SNOMED CT 4361085507 / Confirmed Bladder stone / SNOMED CT 205958139 / Confirmed BPH with urinary obstruction / SNOMED CT 0039298465 / Confirmed Incomplete bladder emptying / SNOMED CT 548165009 / Confirmed Gross hematuria / SNOMED CT 115722127 / Confirmed Kidney stones / SNOMED CT 115711597 / Confirmed Bladder mass / SNOMED CT 9896055526 / Confirmed Urethral stone / SNOMED CT 78133104 / Confirmed Prostate calculus / SNOMED CT 703668907 / Confirmed Continuous severe abdominal pain / SNOMED CT 47461287 / Confirmed Hematochezia / SNOMED CT 7703376298 / Confirmed Acute diarrhea / SNOMED CT 7375620315 / Confirmed Debary ulcerative colitis / SNOMED CT 7511176350 / Confirmed Adenomatous colon polyp / SNOMED CT 3589065526 / Confirmed Resolved: Extreme obesity / SNOMED CT [id number]-B156-4 [id number] Resolved: Ulcerative colitis / SNOMED CT 992208269 Canceled: Ulcerative colitis / SNOMED CT 346153190 Histories Past Medical History: Resolved Extreme obesity ([id number]- [id number]): Resolved. Ulcerative colitis (569688912): Resolved. Family History: Procedure history: Colonoscopy (216416796) on 02/26/2024 at 58 Years. Colonoscopy (986459772) on 03/23/2023 at 57 Years. Cystoscopy (96407479) on 02/04/2021 at 55 Years. Colonoscopy (374313907). right hip replacement (172101669). replacement on both knees (251428250). Hernia repair (26576935). Social History Soc (more content not included)... Normal [facility] Comment on above: Result Comment: Elec tronically Signed By: MD Vj, Rigoberto Espinosa\.br\Date and Time Signed: 03/02/24 14:21 EDT eGFRon 03-02-2024 eGFR 101 mL/min/1.73 m2 Normal >=58 [facility] Comment on above: Order Comment: Order added by Discern Expert. Performed By: #### 2 038429, 7604646, [id number] #### [facility] [address] [place] [address] Consenton 02-29-2024 Consent [id number] Normal [facility] Discharge Instructionson Discharge Instructions [id number] Normal [facility] Main OR Intraoperative Recor don 02-29-2024 Main OR Intraoperative Record IntraOp Document Type FT Summary Primary Physician: Luis Antonio García MD Finalized Date/Time: 02/29/24 10:32:28 Pt. Name: JAM TOSCANO D.O.B./Sex: 1965 Male Med Rec #: [id number] Physician: Luis Antonio García MD Financial #: [id number] Pt. Type: O Room/Bed: / Admit/Disch: 02/26/24 07:58:32 - 02/26/24 23:59:59 Institution: Case Times FT Entry 1 Patient Times In Room 02/26/24 10:07:00 Out Room 02/26/24 10:32:00 Procedure Times Start 02/26/24 10:11:00 Stop 02/26/24 10:30:00 Anesthesia Times Start 02/26/24 10:07:00 Stop 02/26/24 10:32:00 Time at [facility] 02/26/24 10:13:00 Last Modified By: Donna Kumar RN 02/26/24 10:33:38 General Comments: 02/29/24 Chart opened to review and send charges LRoth CSFA Case Attendance FT Entry 1 Entry 2 Entry 3 Case Attendee Jordy HERNÁNDEZ, Corey García MD, Donna Parker RN Role Performed EDGAR Surgeon - Primary Boat Rigger - Primary Time In 02/26/24 10:07:00 02/26/24 10:07:00 02/26/24 10:07:00 Time Out 02/26/24 10:32:00 02/26/24 10:32:00 02/26/24 10:32:00 Procedure COLONOSCOPY(.) COLONOSCOPY(.) COLONOSCOPY(.) Comments Dr. Zabala supervising Last Modified By: Stacy RAMESH, Donna Kumar RN, Donna Pollard RN 02/26/24 10:33:39 02/26/24 10:33:39 02/26/24 10:33:39 Entry 4 Entry 5 Case Attendee Ashley Vu Micala E Role Performed Scrub - Primary Staff - Other Time In 02/26/24 10:07:00 02/26/24 10:07:00 Time Out 02/26/24 10:32:00 02/26/24 10:32:00 Procedure COLONOSCOPY(.) COLONOSCOPY(.) Comments help in room Last Modified By: Stacy RAMESH, Donna Kumar RN, Donna 02/26/24 10:33:39 02/26/24 10:33:39 Perioperative Protocols FT Pre-Care Text: Implements protective measures prior to operative or invasive procedure, confirms identity before the operative or invasive procedure, verifies operative procedure, surgical site, and laterality Entry 1 Procedure(s) COLONOSCOPY(.) Patient Identity Birthday, ID Band Verified (select at Check, Patient least 2): Participation Consents / H and P Anesthesia Consent, Operative Site N/A Verified HandP, Surgery/Procedure Marking Verified Consent Surgical Site No Laterality Verified n/a Verified Procedure Verified Yes Correct Patient Yes Position Verified Availability Equipment, Medication Prep Dry n/a Verified (If Applicable) PreOp Antibiotic No Time Out Corey Spence CRNA, Given Participants Ricky ROBLERO, Stacy Velasco RN, Horace Thompson Kirstyn K, Sparks, Micala E Time Out Complete 02/26/24 10:09:00 Outcomes Met? Yes Last Modified By: Donna Kumar RN 02/26/24 10:14:55 Post-Care Text: The patient is free from signs and symptoms of injury caused by extraneous objects Allergy Information FT Pre-Care Text: Verifies allergies Entry 1 Allergies Reviewed? Yes Allergies Reviewed Self/Patient With Outcomes Met? Yes Last Modified By: Donna Kumar RN 02/26/24 10:15:00 Post-Care Text: The patient received appropriate medication(s) safely administered during the perioperative period Surgical Procedures FT Entry 1 Procedure Description Procedure COLONOSCOPY Modifiers . Surgeon Description COLONOSCOPY with right colon , left colon , transverse colon and rectal biopsies, transverse colon polypectomy, sigmoid colon biopsy at 30cm and rectal ulcer biopsy at 20cm. Primary Procedure Yes Primary Surgeon Ricky ROBLERO, Luis Antonio Tiwari Start 02/26/24 10:11:00 Stop 02/26/24 10:30:00 Anesthesia Type General Surgical Service Gastroenterology Wound Class 2 - Clean-Contaminated Last Modified By: Donna Kumar RN 02/26/24 10:32:24 General Case Data FT Pre-Care Text: Classifies surgical wound, implements aseptic technique, initiates traffic control Entry 1 Case Information OR ENDO 1 FT Case Level Level 2 Wound Class 2 - Clean-Contaminated Specialty Gastroenterology ASA Class 2 Preop Diagnosis UNIVERSAL ulcerative Postop Same As Preop No colitis Postop Diagnosis Diverticulosis, Outcomes Met? Yes transverse colon polyp, inverted diverticulum in ascending colon, rectal ulcer at 20cm, abnormal mucosa in sigmoid colon Last Modified By: Donna Kumar RN 02/26/24 10:34:00 Post-Care Text: The patient is free from signs and symptoms of infection Skin Assessment (Pre Procedure) FT Pre-Care Text: Implements protective measures to prevent skin/ tissue injury due to thermal or mechanical sources Evaluates for signs and symptoms of physical injury to skin and tissue Entry 1 Skin Integrity Intact, [place], Warm, and Skin Abnormality No Dry Outcomes Met? Yes Last Modified By: Donna Kumar RN 02/26/24 10:16:00 Post-Care Text: The patient is free from signs and symptoms of injury caused by extraneous objects Patient Positioning FT Pre-Care Text: Identifies physical alterations that require additional precautions for proce (more content not included)... Normal [facility] Postoperative Documentson Postoperative Documents [id number] [facility] Consent for Treatmenton 02-14 Consent for Treatment [id number] [facility] Discharge Instructionson Discharge Instructions JAM TOSCANO :1965 Visit Date:02/26/2024 Inpatient Discharge Instructions Your Care Team Admitting Physician - Luis Antonio García MD Referring Physician - Ricky ROBLERO, Luis Antonio Tiwari Reason for Your Visit [facility] Your Diagnosis Chronic ulcerative colitis Tests Performed Pathology Tissue Exam -- Results Pending -- Please visit your patient portal for your results or contact your primary care physician. This Is Your Medications List Turmeric adalimumab (Humira Pen Crohns/Ulcer Colitis/Hidradenitis Suppurativa Starterr Pack 80 mg/0.8 mL subcutaneous ki) atorvastatin (atorvastatin 20 mg Tab) cholecalciferol (cholecalciferol 5000 intl units oral capsule) dicyclomine (dicyclomine 10 mg Cap) ezetimibe (Zetia 10 mg Tab) folic acid (folic acid 1 mg Tab) lisinopril (lisinopril 20 mg Tab) mesalamine (mesalamine 4 g/60 mL rectal enema) mesalamine (mesalamine 4 g/60 mL rectal enema) multivitamin with minerals (Multivitamins and Minerals) omeprazole (omeprazole 40 mg Cap-DR) ondansetron (Zofran ODT 4 mg Tab-Dis) ondansetron (ondansetron 4 mg Tab) sulfasalazine (sulfasalazine 500 mg oral enteric coated tablet) tamsulosin (Flomax 0.4 mg Cap) vedolizumab (Entyvio 300 mg intravenous injection) Procedure History Colonoscopy (03/23/2023), Cystoscopy (02/04/2021), Colonoscopy, Hernia repair, Procedure on hip, Procedure on knee. Discharge Vitals Temperature (Temporal Artery) 36.3 ?C Heart Rate (Monitored) 75 Respiratory Rate 26 Blood Pressure 129/86 Height 168 cm Weight 75.4 kg BMI 26.71 What to do next Instructions From Your Doctor Event Name Event Result Discharge Activity Resume normal activities in 24 hours Discharge Restrictions No driving for 24 hrs Discharge Diet(s) Regular Call Your Doctor For Persistent or heavy bleeding Pharmacy Information [facility] Discharge Instructions Discharge Instructions New Follow Up Appointments after Discharge Follow Up with Luis Antonio García When: Within 1 to 2 weeks Comments: Call for any problems. Where: [address] [place], [place] [address], [address] [phone] [phone] [email or web address] (1) Medications What How Much When Why Instructions Next Dose Unchanged adalimumab (Humira Pen Crohns/ Ulcer Colitis/ Hidradenitis Suppurativa Starterr Pack 80 mg/ 0.8 mL subcutaneous ki) See instructions Inject 160 mg on day one, Inject 80 mg on day 15 Unchanged atorvastatin (atorvastatin 20 mg Tab) 1 Tablets By Mouth Every day Unchanged cholecalciferol (cholecalciferol 5000 intl units oral capsule) By Mouth Every day Unchanged dicyclomine (dicyclomine 10 mg Cap) 1 Capsules By Mouth 4 times a day Unchanged ezetimibe (Zetia 10 mg Tab) 1 Tablets By Mouth Every day Unchanged folic acid (folic acid 1 mg Tab) 1 Tablets By Mouth Every day Unchanged lisinopril (lisinopril 20 mg Tab) 1 Tablets By Mouth Every day Unchanged mesalamine (mesalamine 4 g/ 60 mL rectal enema) 1 Each By rectum Once a day (at bedtime) Unchanged mesalamine (mesalamine 4 g/ 60 mL rectal enema) 1 Each By rectum Once a day (at bedtime) Unchanged multivitamin with minerals (Multivitamins and Minerals) 1 tab By Mouth Every day Unchanged omeprazole (omeprazole 40 mg Cap-DR) 1 Capsules By Mouth Every day Unchanged ondansetron (ondansetron 4 mg Tab) 20 EA, TAKE 1 TABLET BY MOUTH EVERY 6 HOURS NEEDED FOR NAUSEA AND VOMITING Unchanged ondansetron (Zofran ODT 4 mg Tab-Dis) 1 Tablets By Mouth Every 8 hours as needed for Nausea/Vomiting Unchanged sulfasalazine (sulfasalazine 500 mg oral enteric coated tablet) 2 Tablets By Mouth 4 times a day Duration: 30 Days Unchanged tamsulosin (Flomax 0.4 mg Cap) 1 Capsules By Mouth Every day Unchanged Turmeric 400 Milligram By Mouth Every day Unchanged vedolizumab (Entyvio 300 mg intravenous injection) See instructions Debary ulcerative colitis 300 mg/ kg at week 0, 2 & 6 then 300 mg/ kg every 8 weeks Test Results No qualifying data available. Allergies No Known Medication Allergies Problems Ongoing - Any problem that you are currently receiving treatment for. Acute diarrhea Adenomatous colon polyp Bladder mass Bladder stone BPH with urinary obstruction Continuous severe abdominal pain Gross hematuria Heartburn Hematochezia Hyperlipemia Incomplete bladder emptying Kidney stones Prostate calculus Rectal bleed Ulcerative colitis, universal Debary ulcerative colitis Urethral stone Historical - Any problem that you are no longer receiving treatment for. Extreme obesity Ulcerative colitis Education Materials Ulcerative Colitis, Adult Ulcerative colitis is long-term (chronic) inflammation of the large intestine (colon) and rectum. Sores (ulcers) may also form in these areas. Ulcerative colitis, along with a closely related condition called Crohn's disease, is often referred to (more content not included)... Normal [facility] Comment on above: Result Comment: Elec tronically Signed By: Lalo RAMESH, Lesli\.sania\Date and Time Signed: 02/26/24 10:43 EDT Endoscopic Procedure Report - Otheron 02-26-2024 Endoscopic Procedure Report - Other Patient: JAM TOSCANO Age: 58 years Sex: Male : 1965 Associated Diagnoses: None Author: Luis Antonio García MD Pre-Procedure Procedure Date 02/26/2024 10:32:00 . Procedure Type: Colonoscopy with removal of tumor(s), polyp(s), or other lesion(s) by cold snare technique, biopsy. Procedure provider Performed by Luis Antonio García MD. Current history and physical Documented on chart. Colonoscopy ([id number]) on 03/23/2023 at 57 Years. Cystoscopy ([id number]) on 02/04/2021 at 55 Years. Colonoscopy ([id number]). right hip replacement ([id number]). replacement on both knees ([id number]). Hernia repair ([id number]).. Past Medical History Resolved Extreme obesity ([id number]): Resolved. Ulcerative colitis ([id number]): Resolved.. Family History . Procedure History Colonoscopy ([id number]) on 03/23/2023 at 57 Years. Cystoscopy ([id number]) on 02/04/2021 at 55 Years. Colonoscopy ([id number]). right hip replacement ([id number]). replacement on both knees (881233079). Hernia repair ([id number]).. Colorectal neoplasm risk assessment High risk UC. . Informed Consent After discussing the rationale, risks and benefits, and alternatives to this procedure, the patient provided signed consent for the procedure. Pre-procedure diagnosis: Diagnostic: Colitis. Medications (Selected) Inpatient Medications Ordered Sodium Chloride 0.9% IV Dawn 1000 mL 1,000 mL: 1,000 mL, IV, 20 mL/hr, Routine, Start date 02/26/24 6:45:00 EDT, 50 hour(s), Total volume (mL): 1,000 Prescriptions Prescribed Entyvio 300 mg intravenous injection: See Instructions, 300 mg/kg at week 0, 2 & 6 then 300 mg/kg every 8 weeks, # 1 EA, Refills(s) 6, called to pharmacy (Rx) Flomax 0.4 mg Cap: 0.4 mg = 1 cap(s), Oral, Daily, # 10 cap(s), Refills(s) 0, Pharmacy: [facility]/pharmacy #[id number], 168, cm, 10/23/23 13:41:00 EST, Height/Length Dosing, 75.1, kg, 10/23/23 13:41:00 EST, Weight Dosing Humira Pen Crohns/Ulcer Colitis/Hidradenitis Suppurativa Starterr Pack 80 mg/0.8 mL subcutaneous ki...: See Instructions, Inject 160 mg on day one, Inject 80 mg on day 15, # 1 kit(s), Refills(s) 0, Pharmacy: [facility]/pharmacy #[id number], 167, cm, 09/04/20 8:15:00 EDT, Height/Length Dosing, 75.8, kg, 09/04/20 8:15:00 EDT, Weight Dosing Zofran ODT 4 mg Tab-Dis: 4 mg = 1 tab(s), Oral, q8hr, PRN Nausea/Vomiting, # 30 tab(s), Refills(s) 0, Pharmacy: [facility]/pharmacy #[id number], 168, cm, 10/23/23 13:41:00 EST, Height/Length Dosing, 75.1, kg, 10/23/23 13:41:00 EST, Weight Dosing mesalamine 4 g/60 mL rectal enema: = 1 EA, Rectal, Once a day (at bedtime), # 30 EA, Refills(s) 3, Pharmacy: [facility]/pharmacy #[id number], 168, cm, 03/23/23 8:23:00 EDT, Height/Length Dosing, 81.1, kg, 03/23/23 8:23:00 EDT, Weight Dosing mesalamine 4 g/60 mL rectal enema: = 1 EA, Rectal, Once a day (at bedtime), # 30 EA, Refills(s) 6, [id number] 168, cm, 10/16/22 13:49:00 EST, Height/Length Dosing, 80.6, kg, 10/16/22 13:49:00 EST, Weight Dosing omeprazole 40 mg Cap-DR: 40 mg = 1 cap(s), Oral, Daily, # 30 cap(s), Refills(s) 11, [id number] 167, cm, 09/04/20 8:15:00 EDT, Height/Length Dosing, 75.8, kg, 09/04/20 8:15:00 EDT, Weight Dosing sulfasalazine 500 mg oral enteric coated tablet: 1,000 mg = 2 tab(s), Oral, QID, X 30 day(s), # 240 tab(s), Refills(s) 11, [id number] 168, cm, 04/01/23 8:58:00 EDT, Height/Length Dosing, 81, kg, 04/01/23 8:58:00 EDT, Weight Dosing Documented Medications Documented Multivitamins and Minerals: 1 tab, Oral, Daily, Refill(s) 0, Prophylaxis Turmeric: 400 mg, Oral, Daily, Refill(s) 0 Zetia 10 mg Tab: 10 mg = 1 tab(s), Oral, Daily, Refills(s) 0, High cholesterol atorvastatin 20 mg Tab: 20 mg = 1 tab(s), Oral, Daily, Refills(s) 0, High cholesterol cholecalciferol 5000 intl units oral capsule: Oral, Daily, Refills(s) 0, Prophylaxis dicyclomine 10 mg Cap: 10 mg = 1 cap(s), Oral, QID, Refills(s) 0 folic acid 1 mg Tab: 1 mg = 1 tab(s), Oral, Daily, Refills(s) 0, Prophylaxis lisinopril 20 mg Tab: 20 mg = 1 tab(s), Oral, Daily, Refills(s) 0, High blood pressure ondansetron 4 mg Tab: 20 EA, TAKE 1 TABLET BY MOUTH EVERY 6 HOURS NEEDED FOR NAUSEA AND VOMITING, Refills(s) 0 ASA Classification: Class II. . Monitoring: See anesthesia record. . Procedure The procedure was performed in the hospital. See anesthesia record for sedation given during procedure. The patient was positioned starting in the left lateral decubitus position. Endoscope type used was an adult-size. The endoscope was lubricated then introduced through the anus. The scope was advanced to the cecum. No difficulties encountered during the procedure. The bowel preparation quality was adequate (see polyps greater than or equal to 6 millimeters). The patient tolerated the procedure well. Last colonoscopy Time to cecum: 2 min Time of withdrawal: 17 min Findings 1. No significant inflammation, normal vascular pattern through the col (more content not included)... Normal [facility] Comment on above: Result Comment: Elec tronically Signed By: Ricky ROBLERO, Luis Antonio Tiwari\.br\Date and Time Signed: 02/26/24 10:37 EDT Inpatient Patient Summaryon 02-26-2024 Inpatient Patient Summary (Inserted Imag e. Unable to display) [place] [id number] [facility] Clinical Discharge Instructions PERSON INFORMATION Name: JAM TOSCANO PHYSICIANS Admitting Physician: Luis Antonio García MD Attending Physician: Luis Antonio García MD PCP: Jose L Lackey MD Discharge Diagnosis: Chronic ulcerative colitis Comment: PATIENT EDUCATION INFORMATION Instructions: Medication Leaflets: Follow up: MEDICATION LIST Medications to Continue with No Changes Other Medications adalimumab (Humira Pen Crohns/Ulcer Colitis/Hidradenitis Suppurativa Starterr Pack 80 mg/0.8 mL subcutaneous ki) Inject 160 mg on day one, Inject 80 mg on day 15. Refills: 0. atorvastatin (atorvastatin 20 mg Tab) 1 Tablets By Mouth every day. cholecalciferol (cholecalciferol 5000 intl units oral capsule) By Mouth every day. dicyclomine (dicyclomine 10 mg Cap) 1 Capsules By Mouth 4 times a day. ezetimibe (Zetia 10 mg Tab) 1 Tablets By Mouth every day. folic acid (folic acid 1 mg Tab) 1 Tablets By Mouth every day. lisinopril (lisinopril 20 mg Tab) 1 Tablets By Mouth every day. mesalamine (mesalamine 4 g/60 mL rectal enema) 1 Each By rectum once a day (at bedtime). Refills: 3. mesalamine (mesalamine 4 g/60 mL rectal enema) 1 Each By rectum once a day (at bedtime). Refills: 6. multivitamin with minerals (Multivitamins and Minerals) 1 tab By Mouth every day. omeprazole (omeprazole 40 mg Cap-DR) 1 Capsules By Mouth every day. Refills: 11. ondansetron (ondansetron 4 mg Tab) 20 EA, TAKE 1 TABLET BY MOUTH EVERY 6 HOURS NEEDED FOR NAUSEA AND VOMITING., Responsible Provider: KULWINDER CUADRA ondansetron (Zofran ODT 4 mg Tab-Dis) 1 Tablets By Mouth every 8 hours as needed Nausea/Vomiting. Refills: 0. sulfasalazine (sulfasalazine 500 mg oral enteric coated tablet) 2 Tablets By Mouth 4 times a day for 30 Days. Refills: 11. tamsulosin (Flomax 0.4 mg Cap) 1 Capsules By Mouth every day. Refills: 0. Turmeric 400 Milligram By Mouth every day. vedolizumab (Entyvio 300 mg intravenous injection) 300 mg/kg at week 0, 2 & 6 then 300 mg/kg every 8 weeks. Refills: 6. Comment: Normal [facility] Main OR PACU I Recordon 02-14 Main OR PACU I Record PACU Phase I Docum ent Type FT Summary Primary Physician: Luis Antonio García MD Finalized Date/Time: 02/26/24 11:54:56 Pt. Name: JAM TOSCANO/Sex: 1965 Male Med Rec #: [id number] Physician: Luis Antonio García MD Financial #: [id number] Pt. Type: O Room/Bed: / Admit/Disch: 02/26/24 07:58:32 - Institution: Case Times PACU I FT Pre-Care Text: Identifies barriers to communication and implements measures to provide psychological support Develops individualized plan of care, and ensures continuity of care Maintains patient's dignity and privacy, and maintains patient confidentiality Identifies and reports philosophical, cultural, and spiritual beliefs and values Identifies individual values and wishes concerning care Implements aseptic technique, and administers prescribed antibiotic therapy and immunizing agents as ordered Evaluates postoperative tissue perfusion Implements thermoregulation measures, and monitors body temperature Evaluates postoperative respiratory status Evaluates postoperative cardiac status Evaluates postoperative neurological status Assesses pain control, collaborated in initiating patient-controlled analgesia and implements alternative methods of pain control Verifies allergies, administers prescribed medications and solutions, evaluates response to medications Entry 1 In PACU I 02/26/24 10:34:00 Discharge from PACU 02/26/24 11:10:00 I Outcomes Met? Yes Last Modified By: Lesli May RN 02/26/24 11:54:37 Post-Care Text: The patient demonstrates knowledge of the expected response to the operative or invasive procedure The patient's care is consistent with the individualized perioperative plan of care The patient's right to privacy is maintained The patient's value system, lifestyle, ethnicity, and culture are considered, respected, and incorporated into the perioperative plan of care The patient participates in decisions affecting his or her perioperative plan of care The patient is free from signs and symptoms of infection The patient has wound/tissue perfusion consistent with or improved from baseline levels established preoperatively The patient is at or returning to normothermia at the conclusion of the immediate postoperative period The patient's respiratory function is consistent with or improved from baseline levels established preoperatively The patient's cardiovascular status is consistent with or improved from baseline levels established preoperatively The patient's cardiovascular status is consistent with or improved from baseline levels established preoperatively The patient demonstrates and/or reports adequate pain control throughout the perioperative period The patient received appropriate medication(s), safely administered during the perioperative period Acuity Level PACU I FT Entry 1 Start Time 02/26/24 10:34:00 Stop Time 02/26/24 11:10:00 Acuity Level Acuity Level I Last Modified By: Lesli May RN 02/26/24 11:54:52 Finalized By: Lesli May RN Document Signatures Signed By: Lesli May RN 02/26/24 11:54 [facility] Main OR Preoperative Recordo n 02-26-2024 Main OR Preoperative Record Holding Area Document Type FT Summary Primary Physician: Luis Antonio García MD Finalized Date/Time: 02/26/24 08:41:02 Pt. Name: JAM TOSCANO Angel Ochoa/Sex: 1965 Male Med Rec #: [id number] Physician: Luis Antonio García MD Financial #: [id number] Pt. Type: O Room/Bed: / Admit/Disch: 02/26/24 07:58:32 - Institution: Case Times Holding FT Pre-Care Text: Verifies consent for planned procedure, identifies individual values and wishes concerning care, includes family members in perioperative teaching Secures patient's records' belongings, and valuables, maintains patient's dignity and privacy, and maintains patient confidentiality Entry 1 In Holding 02/26/24 08:21:00 Outcomes Met? Yes Last Modified By: Lauren Rosado RN 02/26/24 08:22:31 Post-Care Text: The patient participates in decisions affecting his or her perioperative plan of care The patient's right to privacy is maintained Surgery Checklist FT Entry 1 Patient Birthday, ID Band Procedure History and Physical, Identification: Check, Patient Verification: Surgical Consent, With Participation Patient NPO after Midnight: Yes Date/Time: 02/26/24 03:30:00 Personal Items right hip metal Limitations: n/a Comment: implant, bilateral knee replacement, left hand metal implant Complaints of Pain: No Pain Comment: denies Operative Site n/a Marked By: n/a Marking: Availability Equipment Verified: Does Patient Smoke No Patient states Yes Comment - Adult Anthony postop adult Supervision supervision available Case Cancelled in No Holding Area see comments below for reason Last Modified By: Lauren Rosado RN 02/26/24 08:41:00 General Comments: Pt finished colon prep at 0330, states stool is clear liquid yellow, has been NPO since. /,RN Finalized By: Lauren Rosado RN Document Signatures Signed By: Lauren Rosado RN 02/26/24 08:41 Normal [facility] Monitor Recordon 02-26-2024 Monitor Record [id number] Normal [facility] Monitor Record [id number] Normal [facility] Outpatient Surgery Discharge Instructionon 02-26-2024 Outpatient Surgery Discharge Instruction [place] [id number] Patient Discharge Instructions PERSON INFORMATION Name: JAM TOSCANO Date of : 1965 Current Date: 02/26/2024 09:58:54 PHYSICIANS Admitting Physician: Ricky ROBLERO, Luis Antonio Tiwari Discharge Diagnosis: Chronic ulcerative colitis JAM TOSCANO has been given the following list of follow-up instructions, prescriptions, and patient education materials: PATIENT FOLLOW-UP INFORMATION Diet: Regular Discharge Activity: Resume normal activities in 24 hours Discharge Restrictions: No driving for 24 hrs Call Your Doctor For: Persistent or heavy bleeding IF UNABLE TO CONTACT YOUR PHYSICIAN AND YOU FEEL IT IS AN EMERGENCY, GO TO THE NEAREST EMERGENCY ROOM OR CALL 911 IRIMMA ROBIN L, have received the attached patient education materials/instructions and have verbalized understanding: May we do a follow up call? Yes No I was present when discharge instructions were given Patient Signature ___ Date Clinican/Nurse Signature Date Follow up: Pharmacy Information: [facility] You may receive a survey from [employer] asking you to rate your care experience. Your feedback is important and will help us understand what we do well and how we can improve the quality of care we provide to you, your loved ones and our community. It?s an honor to serve you. Thank you for choosing [facility] HERE ARE THE MEDICATION CHANGES THAT OCCURRED DURING YOUR HOSPITAL STAY Medications to Continue with No Changes Other Medications adalimumab (Humira Pen Crohns/Ulcer Colitis/Hidradenitis Suppurativa Starterr Pack 80 mg/0.8 mL subcutaneous ki) Inject 160 mg on day one, Inject 80 mg on day 15. Refills: 0. atorvastatin (atorvastatin 20 mg Tab) 1 Tablets By Mouth every day. cholecalciferol (cholecalciferol 5000 intl units oral capsule) By Mouth every day. dicyclomine (dicyclomine 10 mg Cap) 1 Capsules By Mouth 4 times a day. ezetimibe (Zetia 10 mg Tab) 1 Tablets By Mouth every day. folic acid (folic acid 1 mg Tab) 1 Tablets By Mouth every day. lisinopril (lisinopril 20 mg Tab) 1 Tablets By Mouth every day. mesalamine (mesalamine 4 g/60 mL rectal enema) 1 Each By rectum once a day (at bedtime). Refills: 3. mesalamine (mesalamine 4 g/60 mL rectal enema) 1 Each By rectum once a day (at bedtime). Refills: 6. multivitamin with minerals (Multivitamins and Minerals) 1 tab By Mouth every day. omeprazole (omeprazole 40 mg Cap-DR) 1 Capsules By Mouth every day. Refills: 11. ondansetron (ondansetron 4 mg Tab) 20 EA, TAKE 1 TABLET BY MOUTH EVERY 6 HOURS NEEDED FOR NAUSEA AND VOMITING., Responsible Provider: KULWINDER CUADRA ondansetron (Zofran ODT 4 mg Tab-Dis) 1 Tablets By Mouth every 8 hours as needed Nausea/Vomiting. Refills: 0. sulfasalazine (sulfasalazine 500 mg oral enteric coated tablet) 2 Tablets By Mouth 4 times a day for 30 Days. Refills: 11. tamsulosin (Flomax 0.4 mg Cap) 1 Capsules By Mouth every day. Refills: 0. Turmeric 400 Milligram By Mouth every day. vedolizumab (Entyvio 300 mg intravenous injection) 300 mg/kg at week 0, 2 & 6 then 300 mg/kg every 8 weeks. Refills: 6. PATIENT EDUCATION INFORMATION Instructions: Medication Leaflets: [facility] Patient Education - Texton 0 02-26-2024 Patient Education - Text Diverticulosis Many people have small pouches in their colon called diverticulum. The diverticulum bulge outward through weak spots in the colon. You could have one or more of these pouches in the colon. The condition of having these pouches in the colon is called diverticulosis or diverticular disease. Diverticulosis is usually diagnosed by tests to evaluate something else. For example, you may have had a colonoscopy to screen for colon cancer when the diverticulosis was found. Most people with diverticulosis do not have any discomfort or problems. If symptoms develop, they may include mild cramps, bloating, and constipation. A complication of this condition is called diverticulitis. This is when the diverticulum become inflamed and infected. How to treat diverticulosis: Increasing the amount of fiber in the diet may reduce symptoms of diverticulosis and prevent complications such as diverticulitis (infected diverticuli). Fiber keeps stool soft and lowers pressure inside the colon so that bowel contents can move through easily. You should eat 20 to 35 grams of fiber each day. The table below shows the amount of fiber in some foods that you can easily add to your diet. Adding fiber slowly may decrease the bloating and fullness sometimes felt with an immediate high fiber diet. The doctor may also recommend taking a fiber product such as Citrucel or Metamucil once a day. In the past people with diverticulosis were to avoid nuts, corn, and seeds. This has not been found to be true. If you find that certain foods create cramping or bloating, avoid that food. Foods high in fiber include: Fresh fruits, fresh vegetables, legumes (beans), whole wheat bread, bran muffins or cereal, and nuts. See the table below for examples of high fiber foods. Remember, your goal is 20-35 grams per day. Amount of fiber in different foods Food Serving Grams of fiber Fruits Apple (with skin) 1 medium apple 4.4 Banana 1 medium banana 3.1 Oranges 1 orange 3.1 Prunes 1 cup, pitted 12.4 Juices Apple, unsweetened, w/added ascorbic acid 1 cup 0.5 Grapefruit, white, canned, sweetened 1 cup 0.2 Grape, unsweetened, w/added ascorbic acid 1 cup 0.5 [place] 1 cup 0.7 Vegetables Cooked Green beans 1 cup 4.0 Carrots 1/2 cup sliced 2.3 Peas 1 cup 8.8 Potato (baked, with skin) 1 medium potato 3.8 Raw [place] (with peel) 1 cucumber 1.5 Lettuce 1 cup shredded 0.5 Tomato 1 medium tomato 1.5 Spinach 1 cup 0.7 Legumes Baked beans, canned, no salt added 1 cup 13.9 Kidney beans, canned 1 cup 13.6 Salmon beans, canned 1 cup 11.6 Lentils, boiled 1 cup 15.6 Breads, pastas, flours Bran muffins 1 medium muffin 5.2 Oatmeal, cooked 1 cup 4.0 White bread 1 slice 0.6 Whole-wheat bread 1 slice 1.9 Pasta and rice, cooked Macaroni 1 cup 2.5 Rice, brown 1 cup 3.5 Rice, white 1 cup 0.6 Spaghetti (regular) 1 cup 2.5 Nuts Almonds 1/2 cup 8.7 Peanuts 1/2 cup 7.9 Chart from [facility] 2013. SEEK IMMEDIATE MEDICAL CARE IF: You develop abdominal (belly) pain. An oral temperature above _ 101? F__develops. Repeated vomiting occurs. Blood is being passed in stools (bright red or black tarry stools). You develop any bowel problems or changes which you have not had before. Extra Information: To learn how much fiber and other nutrients are in different foods, visit the [place] Department of Agriculture (USDA) National Nutrient Database at: http://www.nal.usda.gov/f clark/foodcomp/search/ Created using data from the [employer] National Nutrient Database for Standard Reference. Available at http://www.Basecamp.As It Is.gov/f clark/foodcomp/search/. Information adapted from: ExitCare? Patient Information ?2009 [employer]. [employer] 2012 [email or web address] Colonoscopy Care After Surgery Please read the instructions outlined below and refer to this sheet in the next few weeks. These discharge instructions provide you with general information on caring for yourself after you leave the hospital. Your doctor may also give you specific instructions. While your treatment has been planned according to the most current medical practices available, unavoidable complications occasionally occur. If you have any problems or questions after discharge, please call your doctor. ACTIVITY You may resume your regular activity, but move at a slower pace for the next 24 hours. Take frequent rest periods for the next 24 hours. Walking will help get rid of the air and reduce the bloated feeling in your abdomen (belly). No driving for 24 hours (because of the anesthesia (medicine) used during the test). You may shower. Do not sign any important legal documents or operate any machinery for 24 hours (because of the anesthesia used during the test). NUTRITION Drink plenty of fluids. You may resume your normal diet as instructed by your doctor. Begin with a light meal and progress (more content not included)... Normal [facility] 02-11-2024 CANDIE Telephone (ANGEL) ----- JAM TOSCANO ([id number]) 1965 M Date Time Provider Department 02/11/24 NIDIA WESTON During your visit today, we recorded the following information about you: Nidia Weston, TITLE INSURANCE AGENT.MANAGER COLLECTION 02/11/2024 2:48 PM Signed Please call patient I see she has appointment with GI for February She has elevated alk phos with high liver portion We can see if her GI can follow her for liver too - please send results I placed consult this can be faxed as well Sed rate slightly above normal - this can be normal for age. Crp normal We can discuss further at upcoming visit Latest Ref Rng 01/12/2024 WBC 3.70 - 11.00 k/uL 8.05 RBC 4.20 - 6.00 m/uL 4.71 Hemoglobin 13.0 - 17.0 g/dL 13.9 Hematocrit 39.0 - 51.0 % 43.6 MCV 80.0 - 100.0 fL 92.6 MCH 26.0 - 34.0 pg 29.5 MCHC 30.5 - 36.0 g/dL 31.9 RDW-CV 11.5 - 15.0 % 15.0 Platelet Count 150 - 400 k/uL 339 MPV 9.0 - 12.7 fL 9.4 Neut% % 69.0 Abs Neut (ANC) 1.45 - 7.50 k/uL 5.55 Lymph% % 22.9 Abs Lymph 1.00 - 4.00 k/uL 1.84 Hickman% % 7.3 Abs Hickman <0.87 k/uL 0.59 Eosin% % 0.1 Abs Eosin <0.46 k/uL <0.03 Baso% % 0.5 Abs Baso <0.11 k/uL 0.04 Immature Gran % % 0.2 IMMATURE GRANS (ABS) <0.10 k/uL <0.03 NRBC /100 WBC 0.0 Absolute nRBC <0.01 k/uL <0.01 DTYPE Auto Alk Phos Bone % 10.7 - 68.3 % 16.2 Bone Fraction 12.9 - 52.6 U/L 34.2 Alk Phos Liver % 26.0 - 86.2 % 83.8 Liver Fraction 16.0 - 69.3 U/L 176.8 (H) Alk Phos Intestine % 0.0 - 24.2 % 0.0 Intestine Fraction 0.0 - 16.3 U/L 0.0 CRP <0.9 mg/dL 0.4 WSR 0 - 15 mm/hr 34 (H) Alkaline Phosphatase 38 - 113 U/L 211 (H) Kelli Madrid, THELMA 02/12/2024 8:40 AM Signed Left message for patient to call office regarding below. Pt has a upcoming appt with Nidia in February. I do not see a appt with GI please verify with pt when he returns call Estephania Devine LPN 02/16/2024 9:58 AM Signed Spoke with patient. Will be seeing Dr Beto García, on 02/26/24. Results and consult faxed with confirmation. Allergies As of Date: 02/11/2024 (No Known Allergies) Date Reviewed: 01/12/2024 Reviewed by: Nidia Weston, TITLE INSURANCE AGENT.MANAGER COLLECTION - Fully Assessed Primary Visit Diagnosis:Elevated alkaline phosphatase level [R74.8] Order(s):CONSULT TO HEPATOLOGY [2343412] Order #: [id number]: 1 FUTURE Prescriptions as of 02/16/2024 - ferrous sulfate 325 mg (65 mg iron) tablet Take 1 tablet by mouth every 12 hours. - predniSONE (DELTASONE) 10 mg tablet PLEASE SEE ATTACHED FOR DETAILED DIRECTIONS - dicyclomine (BENTYL) 10 mg capsule TAKE 1 CAPSULE BY MOUTH 4 TIMES A DAY - ENTYVIO 300 mg injection as directed every 8 wks - sulfaSALAzine EC (AZULFIDINE EN) 500 mg EC tablet TAKE 2 TABLETS BY MOUTH 4 TIMES A DAY - turmeric root extract 500 mg cap Take by mouth. Take one(1) tablet three times daily. - tamsulosin (FLOMAX) 0.4 mg (Discontinued) Take 1 capsule by mouth every afternoon. - Azelastine HCl (OPTIVAR) 0.05 % ophthalmic solution INSTILL 1 DROP INTO EYE ONCE DAILY - mesalamine (ROWASA) 4 gram/60 mL enema USE 1 ENEMA RECTALLY EVERY DAY AT BEDTIME - folic acid 1 mg tablet Take 1 mg by mouth once daily. - Cholecalciferol, Vitamin D3, 5,000 unit cap Take 5,000 Units by mouth once daily. patient taking once daily with food - ezetimibe (ZETIA) 10 mg tablet Take 10 mg by mouth once daily. - atorvastatin (LIPITOR) 20 mg tablet Take 20 mg by mouth once daily. - lisinopril (ZESTRIL, PRINIVIL) 20 mg tablet Take 20 mg by mouth once daily. - Omeprazole 40 mg capsule Take 40 mg by mouth once daily. - CHEWABLE MULTI VITAMIN ORAL Take by mouth. Problem List As Of Date 02/11/2024 Noted Resolved Rheumatoid arthritis with positive rheumatoid f*09/12/2015 Vitamin D deficiency [E55.9] 10/05/2015 Encounter for monitoring of etanercept therapy *02/07/2016 Ulcerative pancolitis (HCC) [K51.00] 02/05/2017 Osteoporosis [M81.0] 10/19/2018 Encounter Status:Closed by ESTEPHANIA DEVINE on 02/16/24 Normal [facility] ALKALINE PHOSPHATASE ISOENZY MES (P)on 01-12-2024 ALK PHOS BONE % 16.2 % Normal 10.7-68.3 [facility] Comment on above: Order Comment: Speci men Type: BLOOD SPECIMENOrdering Facility: [facility] Address: [address] [place] [address] Performed By: #### A LKISOP ####[facility] LABIA [id number] [place] [address] [place] ALK PHOS LIVER % 83.8 % Normal 26.0-86.[address] [facility] Comment on above: Order Comment: Speci men Type: BLOOD SPECIMENOrdering Facility: [facility] Address: [address] [place] [address] Performed By: #### A LKISOP ####[facility] LABIA [id number] [place] [address] [place] BONE FRACTION 34.2 U/L Normal 12.9-52.6 [facility] Comment on above: Order Comment: Speci men Type: BLOOD SPECIMENOrdering Facility: [facility] Address: [address] [place] [address] Performed By: #### A LKISOP ####[facility] LABIA [id number] [place] [address] [place] INTESTINE FRACTION 0.0 U/L Normal 0.0-16.3 [facility] Comment on above: Order Comment: Speci men Type: BLOOD SPECIMENOrdering Facility: [facility] Address: [address] [place] [address] Performed By: #### A LKISOP ####[facility] [id number] [place] [address] [place] LIVER FRACTION 176.8 U/L High 16.0-69.3 [facility] Comment on above: Order Comment: Speci men Type: BLOOD SPECIMENOrdering Facility: [facility] Address: [address] [place] [address] Performed By: #### A LKISOP ####[facility] [id number] [place] [address] [place] Neutrophils/100 WBC (Bld) 0.0 % Normal 0.0-24.2 [facility] Comment on above: Order Comment: Speci men Type: BLOOD SPECIMENOrdering Facility: [facility] Address: [address] [place] [address] Performed By: #### A LKISOP ####[facility] [id number] [place] [address] [place] ALP SerPl-cCncon 01-12-2024 ALP [Catalytic activity/Vol] 211 U/L High 38-113 [facility] Comment on above: Order Comment: Speci men Type: BLOOD SPECIMENOrdering Facility: [facility] Address: [address] [place] [address] Performed By: #### 6 768-6, 1988-03 ####[facility] [id number] [place] [address] [place] CBC W Auto Differential pane l (Bld)on 01-12-2024 Basophils (Bld) [#/Vol] 0.04 10*3/uL Normal <0.11 [facility] Comment on above: Order Comment: Speci men Type: BLOOD SPECIMENOrdering Facility: [facility] Address: [address] [place] [address] Performed By: #### 5 7021-8, 7-7 ####[facility] LABCLIA [id number] [place] [address] [place] Basophils/100 WBC (Bld) 0.5 % Normal [facility] Comment on above: Order Comment: Speci men Type: BLOOD SPECIMENOrdering Facility: [facility] Address: [address] [place] [address] Performed By: #### 5 7021-8, 7 ####[facility] LABCLIA [id number] [place] [address] [place] Differential cell count method Nom (Bld) Auto Normal [facility] Comment on above: Order Comment: Speci men Type: BLOOD SPECIMENOrdering Facility: [facility] Address: [address] [place] [address] Performed By: #### 5 7021-8, 7 ####[facility] LABCLIA [id number] [place] [address] [place] Eosinophils (Bld) [#/Vol] 10*3/uL Normal <0.46 [facility] Comment on above: Order Comment: Speci men Type: BLOOD SPECIMENOrdering Facility: [facility] Address: [address] [place] [address] Performed By: #### 5 7021-8, 7 ####[facility] LABCLIA [id number] [place] [address] [place] Eosinophils/100 WBC (Bld) 0.1 % Normal [facility] Comment on above: Order Comment: Speci men Type: BLOOD SPECIMENOrdering Facility: [facility] Address: [address] [place] [address] Performed By: #### 5 7021-8, 4536-7 ####[facility] LABCLIA [id number] [place] [address] [place] Erythrocyte distribution width (RBC) [Ratio] 15.0 % Normal 11.5-15.0 [facility] Comment on above: Order Comment: Speci men Type: BLOOD SPECIMENOrdering Facility: [facility] Address: [address] [place] [address] Performed By: #### 5 7021-8, 4537-7 ####[facility] LABCLIA [id number] [place] [address] [place] Hematocrit (Bld) [Volume fraction] 43.6 % Normal 39.0-51.0 [facility] Comment on above: Order Comment: Speci men Type: BLOOD SPECIMENOrdering Facility: [facility] Address: [address] [place] [address] Performed By: #### 5 7021-8, 4537-7 ####[facility] LABCLIA [id number] [place] [address] [place] Hemoglobin (Bld) [Mass/Vol] 13.9 g/dL Normal 13.0-17.0 [facility] Comment on above: Order Comment: Speci men Type: BLOOD SPECIMENOrdering Facility: [facility] Address: [address] [place] [address] Performed By: #### 5 7021-8, 4537-7 ####[facility] LABCLIA [id number] [place] [address] [place] Immature granulocytes (Bld) [#/Vol] 10*3/uL Normal <0.10 [facility] Comment on above: Order Comment: Speci men Type: BLOOD SPECIMENOrdering Facility: [facility] Address: [address] [place] [address] Performed By: #### 5 7021-8, 7-7 ####[facility] LABCLIA [id number] [place] [address] [place] Immature granulocytes/100 WBC (Bld) 0.2 % Normal [facility] Comment on above: Order Comment: Speci men Type: BLOOD SPECIMENOrdering Facility: [facility] Address: [address] [place] [address] Performed By: #### 5 7021-8, 4537-7 ####[facility] LABCLIA [id number] [place] [address] [place] Lymphocytes (Bld) [#/Vol] 1.84 10*3/uL Normal 1.00-4.0 0 [facility] Comment on above: Order Comment: Speci men Type: BLOOD SPECIMENOrdering Facility: [facility] Address: [address] [place] [address] Performed By: #### 5 7021-8, 4537-7 ####[facility] LABCLIA [id number] [place] [address] [place] Lymphocytes/100 WBC (Bld) 22.9 % Normal [facility] Comment on above: Order Comment: Speci men Type: BLOOD SPECIMENOrdering Facility: [facility] Address: [address] [place] [address] Performed By: #### 5 7021-8, 4537-7 ####[facility] LABCLIA [id number] [place] [address] [place] MCH (RBC) [Entitic mass] 29.5 pg Normal 26.0-34.0 [facility] Comment on above: Order Comment: Speci men Type: BLOOD SPECIMENOrdering Facility: [facility] Address: [address] [place] [address] Performed By: #### 5 7021-8, 4537-7 ####[facility] LABCLIA [id number] [place] [address] [place] MCHC (RBC) [Mass/Vol] 31.9 g/dL Normal 30.5-36.0 [facility] Comment on above: Order Comment: Speci men Type: BLOOD SPECIMENOrdering Facility: [facility] Address: [address] [place] [address] Performed By: #### 5 7021-8, 4536-7 ####[facility] LABCLIA [id number] [place] [address] [place] MCV (RBC) [Entitic vol] 92.6 fL Normal 80.0-100.0 [facility] Comment on above: Order Comment: Speci men Type: BLOOD SPECIMENOrdering Facility: [facility] Address: [address] [place] [address] Performed By: #### 5 7021-8, 7 ####[facility] LABCLIA [id number] [place] [address] [place] Monocytes (Bld) [#/Vol] 0.59 10*3/uL Normal <0.87 [facility] Comment on above: Order Comment: Speci men Type: BLOOD SPECIMENOrdering Facility: [facility] Address: [address] [place] [address] Performed By: #### 5 7021-8, 7 ####[facility] LABCLIA [id number] [place] [address] [place] Monocytes/100 WBC (Bld) 7.3 % Normal [facility] Comment on above: Order Comment: Speci men Type: BLOOD SPECIMENOrdering Facility: [facility] Address: [address] [place] [address] Performed By: #### 5 7021-8, 7 ####[facility] LABCLIA [id number] [place] [address] [place] Neutrophils (Bld) [#/Vol] 5.55 10*3/uL Normal 1.45-7.5 0 [facility] Comment on above: Order Comment: Speci men Type: BLOOD SPECIMENOrdering Facility: [facility] Address: [address] [place] [address] Performed By: #### 5 7021-8, 7 ####[facility] LABCLIA [id number] [place] [address] [place] Neutrophils/100 WBC (Bld) 69.0 % Normal [facility] Comment on above: Order Comment: Speci men Type: BLOOD SPECIMENOrdering Facility: [facility] Address: [address] [place] [address] Performed By: #### 5 7021-8, 4537-7 ####[facility] LABCLIA [id number] [place] [address] [place] Nucleated RBC (Bld) [#/Vol] 10*3/uL Normal <0.01 [facility] Comment on above: Order Comment: Speci men Type: BLOOD SPECIMENOrdering Facility: [facility] Address: [address] [place] [address] Performed By: #### 5 7021-8, 4537-7 ####[facility] LABIA [id number] [place] [address] [place] Nucleated RBC/100 WBC (Bld) [Ratio] 0.0 /100 WBC Normal [facility] Comment on above: Order Comment: Speci men Type: BLOOD SPECIMENOrdering Facility: [facility] Address: [address] [place] [address] Performed By: #### 5 7021-8, 4537-7 ####[facility] LABIA [id number] [place] [address] [place] Platelet mean volume (Bld) [Entitic vol] 9.4 fL Normal 9.0-12.7 [facility] Comment on above: Order Comment: Speci men Type: BLOOD SPECIMENOrdering Facility: [facility] Address: [address] [place] [address] Performed By: #### 5 7021-8, 7-7 ####[facility] LABCLIA [id number] [place] [address] [place] Platelets (Bld) [#/Vol] 339 10*3/uL Normal 150-400 [facility] Comment on above: Order Comment: Speci men Type: BLOOD SPECIMENOrdering Facility: [facility] Address: [address] [place] [address] Performed By: #### 5 7021-8, 4537-7 ####[facility] LABCLIA [id number] [place] [address] [place] RBC (Bld) [#/Vol] 4.71 10*6/uL Normal 4.20-6.00 [facility] Comment on above: Order Comment: Speci men Type: BLOOD SPECIMENOrdering Facility: [facility] Address: [address] [place] [address] Performed By: #### 5 7021-8, 4537-7 ####[facility] LABCLIA [id number] [place] [address] [place] WBC (Bld) [#/Vol] 8.05 10*3/uL Normal 3.70-11.00 [facility] Comment on above: Order Comment: Speci men Type: BLOOD SPECIMENOrdering Facility: [facility] Address: [address] [place] [address] Performed By: #### 5 7021-8, 4537-7 ####[facility] LABCLIA [id number] [place] [address] [place] CNOVon 01-12-2024 CNOV Office Visit (ANGEL ) ----- JAM TOSCANO ([id number]) 1965 M Date Time Provider Department 01/12/24 10:30 AM NIDIA WESTON During your visit today, we recorded the following information about you: Pulse Blood pressure Weight 95/minute 132/88 74.7 kg Nidia Weston, TITLE INSURANCE AGENT.MANAGER COLLECTION 02/14/2024 11:31 PM Signed Follow up Jam Toscano is a very nice 58 year old male seen for Rheumatoid Arthritis and Osteoporosis Subjective: Patient reports: Low iron- following with Dr. Lomeli Has not been taking iron consistently Following with GI - Dr. Salmon in [place] Has scope scheduled February 25 Last visit high inflammation Flare after covid 11/04/[address]23 Given pred for flare Dr. Lomeli Pain- no No joint swelling Pain have improved since steroid Off steroid Sleeps on flat pillow helps No falls No interim fractures No new bone pains No dental or Jaw problems or pains. Denies jaw pains Follows with dentist every 6 months Denies upcoming dental work or invasive procedures No dental concerns [facility] [phone] No serious infections or fevers Stopped celebrex - does not feel he needs Following with ortho for prior knee and hip replacements Exercise- has exercise bike Sometimes not drinking enough water GI - colitis- has been calm since last treatment SSZ 2 tabs 4 times daily entyvio Calcium dietary Vit d 5000 international unit(s) daily Mesalamine nightly Tumeric daily - started by GI- tid 500mg OP therapy: not on op treatment Wants to wait until everything calmed Med well tolerated Bone tests were reviewed at this visit Full labs enclosed Review of Systems CONSTITUTION: Negative for: Weight loss or gain, Fever. Chills, Night sweats HEENT: Negative for: Nosebleeds, Mouth sores, Trouble swallowing, Dry mouth RESPIRATORY: Negative for: Cough, Shortness of breath, Pain with breathing, Coughing up blood GASTROINTESTINAL: Positive for: Abdominal pain (occasional cramping) Negative for: Melena, Diarrhea and Heartburn MUSCULOSKELETAL: Negative for: Arthralgias, Myalgias, Muscle weakness, Joint swelling and Morning Joint Stiffness NEUROLOGICAL: Negative for: Headaches, Numbness, Memory loss, SKIN: Positive for: Hair loss (thinning) Negative for: Rash, Sun Sensitive Rash, Skin changes and Nail changes EYES: Negative for: Eye pain, Eye redness, Visual disturbance, Eye dryness CARDIOVASCULAR: Negative for: Chest pain, Leg swelling, Arrhythmia, Presyncope GENITOURINARY: Negative for: Dysuria, Hematuria and Ulcerations Still has a kidney stone Following with urology- will see someone else if has further issues HEMATOLOGIC/LYMPHATIC: Negative for: Swollen glands - medical history - medications - allergies - family history - social history - radiology - tests Full details in patient's emr chart Additional pertinent test results reviewed Pertinent imaging scans/films reviewed Physical Exam BP 132/88 Pulse 95 Wt 74.7 kg (164 lb 10.9 oz) SpO2 97% BMI 26.59 kg/m? General Appearance: WD/WN, NAD. Appropriate grooming. SKIN: No rash, no psoriasis, no purpura, no ulcers, no skin thickening/tightness, no circular telangiectasias. HEENT: No patchy alopecia, no conjunctival injection or icterus, no oral ulcers, no thrush NECK: neck supple w/o masses, no thyromegaly, no LAD. LUNGS: CTA, Good respiratory effort. HEART: RRR, - m/r/g Abd; soft, NT, I did not palpate HSM EXTREMITIES: Adequate pulses b/l UE ; No clubbing,discoloration,sc lerodactyly, periungual erythema, digital ulcers, nail pitting; mild LE pitting edema with hypopigm. of skin, denies tenderness or sensitivity, no skin demarcation. MUSCULOSK: Stable multiple severe joint deformities involving the wrists, fingers, ankles and feet Wrist fusion b/l, also with ankyloses of b/l multiple fingers bony deformities of left ankle and pes planus, with valgus deformity of ankle. multiple swan neck deformities, toe deformities Rheumatoid nodules in b/l olecranon bursae stable Swoll JTS:0 Tend. JTS:0 Left elbow contracted Stiff with rom bilateral shoulders No clinical synovitis in the DIP's, PIP's, MCP's, wrists, elbows, shoulders, knees, ankles, midfoot, or toes. No knee effusions bilateral, s/p TKR b/l Shoulder exam: ROM without pain, limitations with full abd LIMITATION of Motion of Joints: multiple as above Thoracic/Lumbar Spine: No percussion tenderness No instability in any upper or lower extremity joints. NEURO: Mental Status: alert and oriented x 3, cheerful, CN II - XII grossly intact Motor: 5/5 proximally and distally b/l Sensory: intact to fine touch Gait: non-antalgic limp sec to chronic foot deformities w/o assistive devices Tone: normal ASSESSMENT: M05.79 Rheumatoid arthritis 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) (primary e (more content not included)... Normal [facility] CRP SerPl-mCncon 01-12-2024 CRP [Mass/Vol] 0.4 mg/dL Normal <0.9 [facility] Comment on above: Order Comment: Specmallory felder Type: BLOOD SPECIMENOrdering Facility: [facility] Address: [address] [place] [address] Performed By: #### 6 768-6, 1988-03 ####[facility] LABCLIA [id number] [place] [address] [place] ESR Westergren method (Bld) [Velocity]on 01-12-2024 ESR (Bld) [Velocity] 34 mm/h [facility] Comment on above: Order Comment: Quinn felder Type: BLOOD SPECIMENOrdering Facility: [facility] Address: [address] [place] [address] Performed By: #### 5 7021-8, 4537-7 ####[facility] LABIA [id number] [place] [address] [place] Consent for Procedure/Surger yon 12-14-2023 Consent for Procedure/Surgery [id number] Normal [facility] Ambulatory Visit Summaryon 0 12-11-2023 Ambulatory Visit Summary JAM TOSCANO :1965 Visit Date:12/11/2023 Ambulatory Visit Instructions Your Diagnosis Debary ulcerative colitis Adenomatous colon polyp Your Care Team Attending Physician - Ricky ROBLERO, Luis Antonio Tiwari Primary Care Physician - Jose L Lackey MD This Is Your Medications List Contact prescribing physician if questions or concerns Turmeric adalimumab (Humira Pen Crohns/Ulcer Colitis/Hidradenitis Suppurativa Starterr Pack 80 mg/0.8 mL subcutaneous ki) atorvastatin (atorvastatin 20 mg Tab) cholecalciferol (cholecalciferol 5000 intl units oral capsule) dicyclomine (dicyclomine 10 mg Cap) ezetimibe (Zetia 10 mg Tab) folic acid (folic acid 1 mg Tab) lisinopril (lisinopril 20 mg Tab) mesalamine (mesalamine 4 g/60 mL rectal enema) mesalamine (mesalamine 4 g/60 mL rectal enema) multivitamin with minerals (Multivitamins and Minerals) omeprazole (omeprazole 40 mg Cap-DR) ondansetron (Zofran ODT 4 mg Tab-Dis) ondansetron (ondansetron 4 mg Tab) sulfasalazine (sulfasalazine 500 mg oral enteric coated tablet) tamsulosin (Flomax 0.4 mg Cap) vedolizumab (Entyvio 300 mg intravenous injection) [Image Removed: STOP]Stop taking these medications naproxen (naproxen 500 mg Tab) Procedures Performed Colonoscopy (03/23/2023), Cystoscopy (02/04/2021), Colonoscopy, Hernia repair, Procedure on hip, Procedure on knee. Discharge Vitals Heart Rate (Peripheral) 78 Respiratory Rate 16 Blood Pressure 156/98 Height 66 in Height 168 cm Weight 165.88 lb Weight 75.4 kg BMI 26.71 Medications What How Much When Why Instructions Unchanged adalimumab (Humira Pen Crohns/ Ulcer Colitis/ Hidradenitis Suppurativa Starterr Pack 80 mg/ 0.8 mL subcutaneous ki) See instructions Inject 160 mg on day one, Inject 80 mg on day 15 Contact prescribing physician if questions or concerns Unchanged atorvastatin (atorvastatin 20 mg Tab) 1 Tablets By Mouth Every day Contact prescribing physician if questions or concerns Unchanged cholecalciferol (cholecalciferol 5000 intl units oral capsule) By Mouth Every day Contact prescribing physician if questions or concerns Unchanged dicyclomine (dicyclomine 10 mg Cap) 1 Capsules By Mouth 4 times a day Contact prescribing physician if questions or concerns Unchanged ezetimibe (Zetia 10 mg Tab) 1 Tablets By Mouth Every day Contact prescribing physician if questions or concerns Unchanged folic acid (folic acid 1 mg Tab) 1 Tablets By Mouth Every day Contact prescribing physician if questions or concerns Unchanged lisinopril (lisinopril 20 mg Tab) 1 Tablets By Mouth Every day Contact prescribing physician if questions or concerns Unchanged mesalamine (mesalamine 4 g/ 60 mL rectal enema) 1 Each By rectum Once a day (at bedtime) Contact prescribing physician if questions or concerns Unchanged mesalamine (mesalamine 4 g/ 60 mL rectal enema) 1 Each By rectum Once a day (at bedtime) Contact prescribing physician if questions or concerns Unchanged multivitamin with minerals (Multivitamins and Minerals) 1 tab By Mouth Every day Contact prescribing physician if questions or concerns Unchanged omeprazole (omeprazole 40 mg Cap-DR) 1 Capsules By Mouth Every day Contact prescribing physician if questions or concerns Unchanged ondansetron (ondansetron 4 mg Tab) 20 EA, TAKE 1 TABLET BY MOUTH EVERY 6 HOURS NEEDED FOR NAUSEA AND VOMITING Contact prescribing physician if questions or concerns Unchanged ondansetron (Zofran ODT 4 mg Tab-Dis) 1 Tablets By Mouth Every 8 hours as needed for Nausea/Vomiting Contact prescribing physician if questions or concerns Unchanged sulfasalazine (sulfasalazine 500 mg oral enteric coated tablet) 2 Tablets By Mouth 4 times a day Duration: 30 Days Contact prescribing physician if questions or concerns Unchanged tamsulosin (Flomax 0.4 mg Cap) 1 Capsules By Mouth Every day Contact prescribing physician if questions or concerns Unchanged Turmeric 400 Milligram By Mouth Every day Contact prescribing physician if questions or concerns Unchanged vedolizumab (Entyvio 300 mg intravenous injection) See instructions Debary ulcerative colitis 300 mg/ kg at week 0, 2 & 6 then 300 mg/ kg every 8 weeks Contact prescribing physician if questions or concerns What How Much When Comments Stop Taking naproxen (naproxen 500 mg Tab) 1 Tablets By Mouth 2 times a day as needed for for pain Allergies No Known Medication Allergies Problems Ongoing - Any problem that you are currently receiving treatment for. Acute diarrhea Adenomatous colon polyp Bladder mass Bladder stone BPH with urinary obstruction Continuous severe abdominal pain Gross hematuria Heartburn Hematochezia Hyperlipemia Incomplete bladder emptying Kidney stones Prostate calculus Rectal bleed Ulcerative colitis, universal Debary ulcerative colitis Urethral stone Historical - Any problem that you are no longer receiving treatment for. E (more content not included)... Normal [facility] Gastroenterology Office/Clin ic Noteon 12-11-2023 Gastroenterology Office/Clinic Note Chief Complaint 10 month follow up HPI Staff Patient is a(n) 58 year old male who presents today for a(n) 10 month follow up, due for 1 year recall. Patient currently treatment is Entyvio, switched from Humira to Entyvio 03/2023. Patient states that he is not currently having any issues and denies any recent flare ups. Patient was prescribed Prednisone by Dr Lackey, currently taking 10mg. Last visit w/ Dr Lebron 04/01/23 57-year-old white male who presents today for a follow-up. He was last seen in 01/2023. He has a history of ulcerative colitis universal diagnosed in 2014. He was initially started on mesalamine and then switched to sulfasalazine. We added Humira in 2018. We increased his Humira to every 3 weeks secondary to suboptimal response and low Humira level. The patient reports that he is feeling better since the frequency of his Humira to every 3 weeks. We performed a colonoscopy in 03/2023, and he continued to have mucosal edema, erythema, and mild superficial ulcerations starting at the dentate line and spreading approximately 4 to 30 cm consistent with left-sided ulcerative colitis. Biopsies were obtained, and the biopsies showed a granulo-chronic active colitis in the rectum, normal ascending biopsy, and a small tubular adenoma in the transverse colon. He achieved clinical remission, but he did not achieve mucosal healing. The patient reports that he was on Remicade years ago. He states that he has a flare up today as he began having abdominal cramps around 3:00 AM. The patient reports that he is taking mesalamine enemas 3 times a week. Colon 03/23/23 Impression and Plan 1. Normal terminal ileum, photograph taken 2. 2 sessile polyps, 5 mm each, in the transverse colon, both removed with cold snare 3. Mucosal edema, erythremia, mild superficial ulcerations starting at the dentate line and spreading proximally up to 30 cm from entry, consistent with left-sided ulcerative colitis, biopsies obtained from the normal-looking ascending colon and also obtained from the rectosigmoid area for pathology and CMV immunohistochemistry 4. Small nonbleeding internal hemorrhoids Recommendations: Repeat colonoscopy:: In 1 year, Pending pathology results. Final Diagnosis (Verified) A: RECTUM, BIOPSY: ? CHRONIC ACTIVE COLITIS WITH EROSION. ? NO GRANULOMA OR DYSPLASIA IDENTIFIED. B: POLYPS, TRANSVERSE COLON, POLYPECTOMY: ? TUBULAR ADENOMA. C: ASCENDING COLON, BIOPSY: ? COLONIC MUCOSA WITHIN NORMAL LIMITS. [facility] 10/23/23 for c/o abdominal pain d/c diagnosis of Kidney stones, CT and labs completed. [facility] 11/04/23 for c/o nausea and diarrah d/c diagnosis of COVID and colitis, CT and labs completed. CT 11/04/23 IMPRESSION: There is mild nonspecific bowel thickening measuring up to 7 mm of the distal colon which may indicate nonspecific inflammation, colitis. Otherwise there are no acute intra-abdominal changes. Laboratory Results 11/27/23 CBC CMP PT PTT Basophil Absolute: 0.1 E9/L (11/27/23) A/G Ratio: 1.1 (11/04/23) INR: 1.2 (11/04/23) PTT: 34 second(s) (11/04/23) Basophil Auto: 0.7 % (11/27/23) AGAP: 13 mEq/L (11/27/23) PT: 13.7 second(s) High (11/04/23) Eos Absolute: 0 E9/L (11/27/23) Albumin Lvl: 3.4 gm/dL (11/04/23) Eos Auto: 0 % (11/27/23) Alk Phos: 106 Int._Unit/L High (11/04/23) Hct: 35 % Low (11/27/23) ALT: 19 Int._Unit/L (11/04/23) HGB: 11.7 gm/dL Low (11/27/23) AST: 25 Int._Unit/L (11/04/23) Lymph Absolute: 1.8 E9/L (11/27/23) Bili Total: 0.5 mg/dL (11/04/23) Lymph Auto: 18.8 % (11/27/23) BUN: 15 mg/dL (11/27/23) MCH: 29.1 pg (11/27/23) BUN/Creat Ratio: 21 High (11/27/23) MCHC: 33.3 gm/dL (11/27/23) Calcium Lvl: 9.2 mg/dL (11/27/23) MCV: 87.3 fL (11/27/23) Chloride: 105 mmol/L (11/27/23) Hickman Absolute: 0.9 E9/L (11/27/23) CO2: 24 mmol/L (11/27/23) Hickman Auto: 9.3 % (11/27/23) Creatinine: 0.7 mg/dL (11/27/23) MPV: 6.3 fL Low (11/27/23) Globulin: 3 gm/dL (11/04/23) Neutro Absolute: 6.9 E9/L (11/27/23) Glucose Lvl: 121 mg/dL (11/27/23) Neutro Auto: 71.2 % (11/27/23) Potassium Lvl: 3.9 mmol/L (11/27/23) Platelet: 462 E9/L (11/27/23) Sodium Lvl: 138 mmol/L (11/27/23) RBC: 4 E12/L Low (11/27/23) Total Protein: 6.4 gm/dL (11/04/23) RDW: 14 % (11/27/23) WBC: 9.7 E9/L (11/27/23) Review of Systems PHQ Score Initial Depression Screen Score: 0 SCORE Physical Exam Vitals & Measurements HR: 78(Peripheral) RR: 16 BP: 156/98 HT: 66 in HT: 168 cm WT: 75.4 kg WT: 165.88 lb BMI: 26.71 Assessment/Plan 1. Debary ulcerative colitis (K51.00: Ulcerative (chronic) pancolitis without complications) UC History: Severe ulcerative colitis , dx 03/2015, started on sulfasalazine. Colonoscopy 08/03/18 showed mild diverticular disease in the sigmoid and descending, mild erythema and loss of vasculature in the rectum, biopsies taken from the sigmoid and rectum were normal. He was initially started on mesalamine and then switched to sulfasalazine. We added Humira in 2018. W (more content not included)... Normal [facility] Comment on above: Result Comment: Elec tronically Signed By: Ricky ROBLERO, Luis Antonio Tiwari\.sania\Date and Time Signed: 12/11/23 10:32 EST Esau 12-03-2023 JOSEN Telephone (ANGEL) ----- JAM TOSCANO ([id number]) 1965 M Date Time Provider Department 12/03/23 NIDIA WESTON During your visit today, we recorded the following information about you: Nidia Weston, TITLE INSURANCE AGENT.MANAGER COLLECTION 12/03/2023 12:08 AM Signed Please call patient Negative tb Negative hep It shows no immunity to hep b may discuss vaccine prior to starting meds Did pcp start prednisone? High inflammation Low hgb - any bleeding High plts Please fax results to pcp for follow up Will monitor for flares after completing prednisone High alk phos recheck in 1 month with other labs Component Latest Ref Rng AND Units 12/01/2023 WBC 3.70 - 11.00 k/uL 10.84 RBC 4.20 - 6.00 m/uL 3.99 (L) Hemoglobin 13.0 - 17.0 g/dL 11.6 (L) Hematocrit 39.0 - 51.0 % 36.8 (L) MCV 80.0 - 100.0 fL 92.2 MCH 26.0 - 34.0 pg 29.1 MCHC 30.5 - 36.0 g/dL 31.5 RDW-CV 11.5 - 15.0 % 13.1 Platelet Count 150 - 400 k/uL 497 (H) MPV 9.0 - 12.7 fL 9.2 Neut% % 72.1 Abs Neut (ANC) 1.45 - 7.50 k/uL 7.83 (H) Lymph% % 19.5 Abs Lymph 1.00 - 4.00 k/uL 2.11 Hickman% % 7.6 Abs Hickman <0.87 k/uL 0.82 Eosin% % 0.1 Abs Eosin <0.46 k/uL <0.03 Baso% % 0.5 Abs Baso <0.11 k/uL 0.05 Immature Gran % % 0.2 IMMATURE GRANS (ABS) <0.10 k/uL <0.03 NRBC /100 WBC 0.0 Absolute nRBC <0.01 k/uL <0.01 DTYPE Auto Protein, Total 6.3 - 8.0 g/dL 8.0 Albumin 3.9 - 4.9 g/dL 3.9 Calcium 8.5 - 10.2 mg/dL 10.2 Bilirubin, Total 0.2 - 1.3 mg/dL 0.3 Alkaline Phosphatase 38 - 113 U/L 171 (H) AST 14 - 40 U/L 31 ALT 10 - 54 U/L 22 Glucose 74 - 99 mg/dL 101 (H) BUN 9 - 24 mg/dL 19 Creatinine 0.73 - 1.22 mg/dL 0.92 Sodium 136 - 144 mmol/L 143 Potassium 3.7 - 5.1 mmol/L 4.1 Chloride 97 - 105 mmol/L 106 (H) CO2 22 - 30 mmol/L 25 Anion Gap 9 - 18 mmol/L 12 eGFR >=60 mL/min/1.73mA? 96 TB Nil <=8.00 IU/mL 0.04 TB1 Ag minus Nil <0.35 IU/mL 0.00 TB2 Ag minus Nil <0.35 IU/mL 0.02 TB Result Negative Mitogen minus Nil >=0.50 IU/mL 3.58 TB Interpretation Infection with M. tuberculosis complex is unlikely. If latent tuberculosis infection is highly suspected, a negative result does not rule out the infection. Specimens from immunocompromised patients and those <5 years of age may show false negative results. In case of a contact investigation, please repeat 8-12 weeks after a known exposure. Hep B Surface Ab, Qual Negative Hep B Surf Ab Quant mIU/mL <8.00 CRP <0.9 mg/dL 3.9 (H) WSR 0 - 15 mm/hr 114 (H) Vitamin D 25 Hydroxy 31.0 - 80.0 ng/mL 63.0 Hep C Antibody IA Negative Negative Hep B Surface Ag Negative Negative Hep B Core Ab, Total Negative Negative Estephania Devine LPN 12/03/2023 10:46 AM Signed Called patient. Received both hepatitis B and A vaccines-05/03/2015, 05/31/2015 and 12/08/2015. Verified in Health Maintenance. Patient read dates from [facility] vaccination card. Stated received twinix vaccine. Started prednisone yesterday. Prescribed 50mg X 3 days, decrease by 10mg every 3 days until on 10mg. To stay on 10mg of prednisone for 19 days. Aware of hgb-no in blood stool X 1 month. States GI aware of blood when I wipe with colitis flares. Will be resuming Iron supplement as prescribed by PCP. Results faxed to PCP. Nidia Weston APRN.JOSE 12/03/2023 11:05 PM Signed Thank you for update Allergies As of Date: 12/03/2023 (No Known Allergies) Date Reviewed: 12/01/2023 Reviewed by: Nidia Weston APRN.MANAGER COLLECTION - Fully Assessed Reason for Visit: Results [95] Primary Visit Diagnosis:Rheumatoid arthritis 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) [M05.79] Order(s):CBC + DIFF [SQCBCDIF] Order #: [id number] FUTURE C-REACTIVE PROTEIN (CRP) [SQCRP] Order #: [id number] FUTURE SED RATE WESTERGREN [SQWSR] Order #: [id number] FUTURE ALK PHOS ISOENZYM BL [SQALKISO] Order #: [id number] FUTURE Prescriptions as of 12/03/2023 - celecoxib (CELEBREX) 200 mg capsule take 1 capsule by mouth twice a day with food - dicyclomine (BENTYL) 10 mg capsule TAKE 1 CAPSULE BY MOUTH 4 TIMES A DAY - ENTYVIO 300 mg injection as directed every 8 wks - sulfaSALAzine EC (AZULFIDINE EN) 500 mg EC tablet TAKE 2 TABLETS BY MOUTH 4 TIMES A DAY - turmeric root extract 500 mg cap Take by mouth. Take one(1) tablet three times daily. - tamsulosin (FLOMAX) 0.4 mg (Discontinued) Take 1 capsule by mouth every afternoon. - Azelastine HCl (OPTIVAR) 0.05 % ophthalmic solution INSTILL 1 DROP INTO EYE ONCE DAILY - mesalamine (ROWASA) 4 gram/60 mL enema USE 1 ENEMA RECTALLY EVERY DAY AT BEDTIME - folic acid 1 mg tablet Take 1 mg by mouth once daily. - Cholecalciferol, Vitamin D3, 5,000 unit cap Take 5,000 Units by mouth once daily. patient taking once daily with food - ezetimibe (ZETIA) 10 mg tablet Take 10 mg by mouth once daily. - atorvastatin (LIPITOR) 20 mg tablet Take 20 mg by mouth once daily. - lisinopril (ZESTRIL, (more content not included)... Normal [facility] 25(OH)D3 SerPl-mCncon 2023 25-hydroxyvitamin D3 [Mass/Vol] 63.0 ng/mL Normal 31.0-80.0 [facility] Comment on above: Order Comment: Quinn felder Type: BLOOD SPECIMENOrdering Facility: [facility] Address: [address] [place] [address] Result Comment: Clas sification of 25 OH Vitamin D status: Deficiency/Insufficiency: < or = 30 ng/ml. Sufficiency/Optimal Levels: 31-80 ng/mL Toxicity: > 100 ng/mL. Test performed by chemiluminescent immunoassay. Performed By: #### 1 989-3 ####[facility] [id number] [address] [facility] BLOOD TB SCREENon 12-01-2023 M. tuberculosis tuberculin stim IFN-g Ql (Bld) Negative Normal [facility] Comment on above: Order Comment: Quinn felder Type: BLOOD SPECIMENOrdering Facility: [facility] Address: [address] [place] [address] Performed By: #### I NFTBP ####[facility] [id number] [place] [address] [place] MITOGEN MINUS NIL 3.58 IU/mL Normal >=0.50 [facility] Comment on above: Order Comment: Quinn felder Type: BLOOD SPECIMENOrdering Facility: [facility] Address: [address] [place] [address] Performed By: #### I NFTBP ####[facility] [id number] [address] TB GAMMA INTERPRETATION Infection with M . tuberculosis complex is unlikely. If latent tuberculosis infection is highly suspected, a negative result does not rule out the infection. Specimens from immunocompromised patients and those <5 years of age may show false negative results. In case of a contact investigation, please repeat 8-12 weeks after a known exposure. Normal [facility] Comment on above: Order Comment: Quinn felder Type: BLOOD SPECIMENOrdering Facility: [facility] Address: [address] [place] [address] Performed By: #### I NFTBP ####[facility] LABCLIA [id number] [place] [address] [place] TB NIL 0.04 IU/mL Normal <=8.00 [facility] Comment on above: Order Comment: Speci men Type: BLOOD SPECIMENOrdering Facility: [facility] Address: [address] [place] [address] Performed By: #### I NFTBP ####[facility] LABIA [id number] [place] [address] [place] TB1 AG MINUS NIL 0.00 IU/mL Normal <0.[address] [facility] Comment on above: Order Comment: Speci men Type: BLOOD SPECIMENOrdering Facility: [facility] Address: [address] [place] [address] Performed By: #### I NFTBP ####[facility] [id number] [place] [address] [place] TB2 AG MINUS NIL 0.02 IU/mL Normal <0.[address] [facility] Comment on above: Order Comment: Speci men Type: BLOOD SPECIMENOrdering Facility: [facility] Address: [address] [place] [address] Performed By: #### I NFTBP ####[facility] [id number] [place] [address] [place] CBC W Auto Differential pane l (Bld)on 12-01-2023 Basophils (Bld) [#/Vol] 0.05 10*3/uL Normal <0.11 [facility] Comment on above: Order Comment: Speci men Type: BLOOD SPECIMENOrdering Facility: [facility] Address: [address] [place] [address] Performed By: #### 5 7021-8, 4537-7 ####[facility] [id number] [place] [address] [place] Basophils/100 WBC (Bld) 0.5 % Normal [facility] Comment on above: Order Comment: Speci men Type: BLOOD SPECIMENOrdering Facility: [facility] Address: [address] [place] [address] Performed By: #### 5 7021-8, 4536-7 ####[facility] LABCLIA [id number] [place] [address] [place] Differential cell count method Nom (Bld) Auto Normal [facility] Comment on above: Order Comment: Speci men Type: BLOOD SPECIMENOrdering Facility: [facility] Address: [address] [place] [address] Performed By: #### 5 7021-8, 7 ####[facility] LABCLIA [id number] [place] [address] [place] Eosinophils (Bld) [#/Vol] 10*3/uL Normal <0.46 [facility] Comment on above: Order Comment: Speci men Type: BLOOD SPECIMENOrdering Facility: [facility] Address: [address] [place] [address] Performed By: #### 5 7021-8, 7 ####[facility] LABCLIA [id number] [place] [address] [place] Eosinophils/100 WBC (Bld) 0.1 % Normal [facility] Comment on above: Order Comment: Speci men Type: BLOOD SPECIMENOrdering Facility: [facility] Address: [address] [place] [address] Performed By: #### 5 7021-8, 7 ####[facility] LABCLIA [id number] [place] [address] [place] Erythrocyte distribution width (RBC) [Ratio] 13.1 % Normal 11.5-15.0 [facility] Comment on above: Order Comment: Speci men Type: BLOOD SPECIMENOrdering Facility: [facility] Address: [address] [place] [address] Performed By: #### 5 7021-8, 4536-7 ####[facility] LABCLIA [id number] [place] [address] [place] Hematocrit (Bld) [Volume fraction] 36.8 % Low 39.0-51.0 [facility] Comment on above: Order Comment: Speci men Type: BLOOD SPECIMENOrdering Facility: [facility] Address: [address] [place] [address] Performed By: #### 5 7021-8, 4536-7 ####[facility] LABIA [id number] [place] [address] [place] Hemoglobin (Bld) [Mass/Vol] 11.6 g/dL Low 13.0-17.0 [facility] Comment on above: Order Comment: Speci men Type: BLOOD SPECIMENOrdering Facility: [facility] Address: [address] [place] [address] Performed By: #### 5 7021-8, 7 ####[facility] LABIA [id number] [place] [address] [place] Immature granulocytes (Bld) [#/Vol] 10*3/uL Normal <0.10 [facility] Comment on above: Order Comment: Speci men Type: BLOOD SPECIMENOrdering Facility: [facility] Address: [address] [place] [address] Performed By: #### 5 7021-8, 7 ####[facility] LABCLIA [id number] [place] [address] [place] Immature granulocytes/100 WBC (Bld) 0.2 % Normal [facility] Comment on above: Order Comment: Speci men Type: BLOOD SPECIMENOrdering Facility: [facility] Address: [address] [place] [address] Performed By: #### 5 7021-8, 4536-7 ####[facility] LABCLIA [id number] [place] [address] [place] Lymphocytes (Bld) [#/Vol] 2.11 10*3/uL Normal 1.00-4.0 0 [facility] Comment on above: Order Comment: Speci men Type: BLOOD SPECIMENOrdering Facility: [facility] Address: [address] [place] [address] Performed By: #### 5 7021-8, 453-7 ####[facility] LABCLIA [id number] [place] [address] [place] Lymphocytes/100 WBC (Bld) 19.5 % Normal [facility] Comment on above: Order Comment: Speci men Type: BLOOD SPECIMENOrdering Facility: [facility] Address: [address] [place] [address] Performed By: #### 5 7021-8, 453-7 ####[facility] LABIA [id number] [place] [address] [place] MCH (RBC) [Entitic mass] 29.1 pg Normal 26.0-34.0 [facility] Comment on above: Order Comment: Speci men Type: BLOOD SPECIMENOrdering Facility: [facility] Address: [address] [place] [address] Performed By: #### 5 7021-8, 7-7 ####[facility] LABIA [id number] [place] [address] [place] MCHC (RBC) [Mass/Vol] 31.5 g/dL Normal 30.5-36.0 [facility] Comment on above: Order Comment: Speci men Type: BLOOD SPECIMENOrdering Facility: [facility] Address: [address] [place] [address] Performed By: #### 5 7021-8, 4537-7 ####[facility] LABCLIA [id number] [place] [address] [place] MCV (RBC) [Entitic vol] 92.2 fL Normal 80.0-100.0 [facility] Comment on above: Order Comment: Speci men Type: BLOOD SPECIMENOrdering Facility: [facility] Address: [address] [place] [address] Performed By: #### 5 7021-8, 4536-7 ####[facility] LABCLIA [id number] [place] [address] [place] Monocytes (Bld) [#/Vol] 0.82 10*3/uL Normal <0.87 [facility] Comment on above: Order Comment: Speci men Type: BLOOD SPECIMENOrdering Facility: [facility] Address: [address] [place] [address] Performed By: #### 5 7021-8, 4536-7 ####[facility] LABCLIA [id number] [place] [address] [place] Monocytes/100 WBC (Bld) 7.6 % Normal [facility] Comment on above: Order Comment: Speci men Type: BLOOD SPECIMENOrdering Facility: [facility] Address: [address] [place] [address] Performed By: #### 5 7021-8, 7 ####[facility] LABCLIA [id number] [place] [address] [place] Neutrophils (Bld) [#/Vol] 7.83 10*3/uL High 1.45-7.5 0 [facility] Comment on above: Order Comment: Speci men Type: BLOOD SPECIMENOrdering Facility: [facility] Address: [address] [place] [address] Performed By: #### 5 7021-8, 4536-7 ####[facility] LABCLIA [id number] [place] [address] [place] Neutrophils/100 WBC (Bld) 72.1 % Normal [facility] Comment on above: Order Comment: Speci men Type: BLOOD SPECIMENOrdering Facility: [facility] Address: [address] [place] [address] Performed By: #### 5 7021-8, 4537-7 ####[facility] LABCLIA [id number] [place] [address] [place] Nucleated RBC (Bld) [#/Vol] 10*3/uL Normal <0.01 [facility] Comment on above: Order Comment: Speci men Type: BLOOD SPECIMENOrdering Facility: [facility] Address: [address] [place] [address] Performed By: #### 5 7021-8, 4536-7 ####[facility] LABIA [id number] [place] [address] [place] Nucleated RBC/100 WBC (Bld) [Ratio] 0.0 /100 WBC Normal [facility] Comment on above: Order Comment: Speci men Type: BLOOD SPECIMENOrdering Facility: [facility] Address: [address] [place] [address] Performed By: #### 5 7021-8, 4536-7 ####[facility] LABIA [id number] [place] [address] [place] Platelet mean volume (Bld) [Entitic vol] 9.2 fL Normal 9.0-12.7 [facility] Comment on above: Order Comment: Speci men Type: BLOOD SPECIMENOrdering Facility: [facility] Address: [address] [place] [address] Performed By: #### 5 7021-8, 4536-7 ####[facility] LABIA [id number] [place] [address] [place] Platelets (Bld) [#/Vol] 497 10*3/uL High 150-400 [facility] Comment on above: Order Comment: Speci men Type: BLOOD SPECIMENOrdering Facility: [facility] Address: [address] [place] [address] Performed By: #### 5 7021-8, 4537-7 ####[facility] LABCLIA [id number] [place] [id number] [place] RBC (Bld) [#/Vol] 3.99 10*6/uL Low 4.20-6.00 [facility] Comment on above: Order Comment: Speci men Type: BLOOD SPECIMENOrdering Facility: [facility] Address: [address] [place] [address] Performed By: #### 5 7021-8, 4537-7 ####[facility] LABCLIA [id number] [place] [id number] [place] WBC (Bld) [#/Vol] 10.84 10*3/uL Normal 3.70-11.00 [facility] Comment on above: Order Comment: Speci men Type: BLOOD SPECIMENOrdering Facility: [facility] Address: [address] [place] [address] Performed By: #### 5 7021-8, 4537-7 ####[facility] LABCLIA [id number] [place] [id number] [place] CNOVon 12-01-2023 CNOV Office Visit (ANGEL ) ----- JAM TOSCANO ([id number]) 1965 M Date Time Provider Department 12/01/23 3:30 PM NIDIA WESTON During your visit today, we recorded the following information about you: Pulse Blood pressure Weight 92/minute 122/76 72.8 kg Nidia Weston APRN.MANAGER COLLECTION 01/11/2024 11:15 PM Signed Follow up Telephone visit Jam Toscano is a very nice 58 year old male seen for Rheumatoid Arthritis and Osteoporosis Additional details per last visit note Subjective: Patient reports last Thursday went to ER Flare after covid 11/04/2023 Prednisone [address] Lomeli ordered pred taper today Was given steroid injection At bedtime left elbow pain Ankle pain Was Off prednisone for last month Started celebrex last week Was taking 400mg in and pm Now reduced - she is aware not to increased dosing Today 1.5 hour sleep When laying down more joint pain More stiffness in arms limited rom shoulders. Left elbow. No dental concerns [facility] dental [phone] GI - colitis- has been calm SSZ 2 tabs 4 times daily entyvio Vit d 5000 international unit(s) daily Mesalamine nightly Tumeric daily - started by GI- tid 500mg Following with ortho for prior knee and hip replacements No falls No interim fractures No new bone pains No serious infections or fevers OP therapy: not on treatment Review of Systems CONSTITUTION: Negative for: Weight loss or gain, Fever. Chills, Night sweats HEENT: Negative for: Nosebleeds, Mouth sores, Trouble swallowing, Dry mouth RESPIRATORY: Negative for: Cough, Shortness of breath, Pain with breathing, Coughing up blood GASTROINTESTINAL: Positive for: Diarrhea and Abdominal pain Negative for: Melena and Heartburn MUSCULOSKELETAL: Negative for: Arthralgias, Myalgias, Muscle weakness, Joint swelling and Morning Joint Stiffness NEUROLOGICAL: Negative for: Headaches, Numbness, Memory loss, SKIN: Positive for: Hair loss (thinning) Negative for: Rash, Sun Sensitive Rash, Skin changes and Nail changes EYES: Negative for: Eye pain, Eye redness, Visual disturbance, Eye dryness CARDIOVASCULAR: Negative for: Chest pain, Leg swelling, Arrhythmia, Presyncope GENITOURINARY: Negative for: Dysuria, Hematuria and Ulcerations Still has a kidney stone Following with urology- will see someone else if has further issuses HEMATOLOGIC/LYMPHATIC: Negative for: Swollen glands - medical history - medications - allergies - family history - social history - radiology - tests Full details in patient's emr chart Additional pertinent test results reviewed Pertinent imaging scans/films reviewed Physical Exam BP 122/76 Pulse 92 Wt 72.8 kg (160 lb 7.9 oz) BMI 25.92 kg/m? General Appearance: WD/WN, NAD. Appropriate grooming. SKIN: No rash, no psoriasis, no purpura, no ulcers, no skin thickening/tightness, no circular telangiectasias. HEENT: No patchy alopecia, no conjunctival injection or icterus, no oral ulcers, no thrush NECK: neck supple w/o masses, no thyromegaly, no LAD. LUNGS: CTA, Good respiratory effort. HEART: RRR, - m/r/g Abd; soft, NT, I did not palpate HSM EXTREMITIES: Adequate pulses b/l UE ; No clubbing,discoloration,sc lerodactyly, periungual erythema, digital ulcers, nail pitting; mild LE pitting edema with hypopigm. of skin, denies tenderness or sensitivity, no skin demarcation. MUSCULOSK: Stable multiple severe joint deformities involving the wrists, fingers, ankles and feet Wrist fusion b/l, also with ankyloses of b/l multiple fingers bony deformities of left ankle and pes planus, with valgus deformity of ankle. multiple swan neck deformities, toe deformities Rheumatoid nodules in b/l olecranon bursae stable Swoll JTS:Mcps 2-3 bilteral Tend. JTS:Mcps 2-3 bilteral Left elbow contracted Stiff with rom bilateral shoulders No clinical synovitis in the DIP's, PIP's, MCP's, wrists, elbows, shoulders, knees, ankles, midfoot, or toes. No knee effusions bilateral, s/p TKR b/l Shoulder exam: ROM without pain, limitations with full abd LIMITATION of Motion of Joints: multiple as above Thoracic/Lumbar Spine: No percussion tenderness No instability in any upper or lower extremity joints. NEURO: Mental Status: alert and oriented x 3, cheerful, CN II - XII grossly intact Motor: 5/5 proximally and distally b/l Sensory: intact to fine touch Gait: non-antalgic limp sec to chronic foot deformities w/o assistive devices Tone: normal ASSESSMENT: M05.79 Rheumatoid arthritis 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) (primary encounter diagnosis) E55.9 Vitamin D deficiency Z71.2 Encounter to discuss test results Z. Encounter for medication review and counseling Z79.899 On sulfasalazine therapy Z71. Counseling on health promotion and disease prevention Per Dr. Jagdish grace (more content not included)... [facility] CRP SerPl-mCncon 12-01-2023 CRP [Mass/Vol] 3.9 mg/dL High <0.9 [facility] Comment on above: Order Comment: Speci men Type: BLOOD SPECIMENOrdering Facility: [facility] Address: [address] [place] [address] Performed By: #### 2 4323-06, 1988-03 ####[facility] LABCLIA [id number] [place] [address] [place] Comprehensive metabolic 2000 panelon 12-01-2023 Albumin [Mass/Vol] 3.9 g/dL Normal 3.9-4.9 [facility] Comment on above: Order Comment: Speci men Type: BLOOD SPECIMENOrdering Facility: [facility] Address: [address] [place] [address] Performed By: #### 2 4323-06, 1988-03 ####[facility] LABCLIA [id number] [place] [address] [place] ALP [Catalytic activity/Vol] 171 U/L High 38-113 [facility] Comment on above: Order Comment: Speci men Type: BLOOD SPECIMENOrdering Facility: [facility] Address: [address] [place] [address] Performed By: #### 2 4323-06, 1988-03 ####[facility] LABCLIA [id number] [place] [address] [place] ALT [Catalytic activity/Vol] 22 U/L Normal 10-54 [facility] Comment on above: Order Comment: Speci men Type: BLOOD SPECIMENOrdering Facility: [facility] Address: [address] [place] [address] Performed By: #### 2 4323-06, 1988-03 ####[facility] LABCLIA [id number] [address] [address] [place] Anion gap [Moles/Vol] 12 mmol/L Normal 9-18 [facility] Comment on above: Order Comment: Speci men Type: BLOOD SPECIMENOrdering Facility: [facility] Address: [address] [place] [address] Performed By: #### 2 4323-06, 1988-03 ####[facility] LABCLIA [id number] [address] [address] [place] AST [Catalytic activity/Vol] 31 U/L Normal 14-40 [facility] Comment on above: Order Comment: Speci men Type: BLOOD SPECIMENOrdering Facility: [facility] Address: [address] [place] [address] Performed By: #### 2 4323-06, 1988-03 ####[facility] LABCLIA [id number] [place] [address] [place] Bilirubin [Mass/Vol] 0.3 mg/dL Normal 0.2-1.3 [facility] Comment on above: Order Comment: Speci men Type: BLOOD SPECIMENOrdering Facility: [facility] Address: [address] [place] [address] Performed By: #### 2 4323-06, 1988-03 ####[facility] LABCLIA [id number] [place] [address] [place] Calcium [Mass/Vol] 10.2 mg/dL Normal 8.5-10.2 [facility] Comment on above: Order Comment: Speci men Type: BLOOD SPECIMENOrdering Facility: [facility] Address: [address] [place] [id number] Performed By: #### 2 4323-06, 1988-03 ####[facility] LABCLIA [id number] [place] [id number] [place] Chloride [Moles/Vol] 106 mmol/L High 97-105 [facility] Comment on above: Order Comment: Speci men Type: BLOOD SPECIMENOrdering Facility: [facility] Address: [address] [place] [address] Performed By: #### 2 43201-21, 1988-03 ####[facility] LABCLIA [id number] [address] [address] [place] CO2 [Moles/Vol] 25 mmol/L Normal 22-30 [facility] Comment on above: Order Comment: Speci men Type: BLOOD SPECIMENOrdering Facility: [facility] Address: [address] [place] [address] Performed By: #### 2 43201-21, 1988-03 ####[facility] LABCLIA [id number] [address] [address] [place] Creatinine [Mass/Vol] 0.92 mg/dL Normal 0.73-1.22 [facility] Comment on above: Order Comment: Speci men Type: BLOOD SPECIMENOrdering Facility: [facility] Address: [address] [place] [address] Performed By: #### 2 43201-21, 1988-03 ####[facility] LABIA [id number] [place] [address] [place] Creatinine and Glomerular filtration rate.predicted panel (S/P/Bld) 96 mL/min/1.73m??? Normal >=60 [facility] Comment on above: Order Comment: Speci men Type: BLOOD SPECIMENOrdering Facility: [facility] Address: [address] [place] [address] Result Comment: Fauzia mated Glomerular Filtration Rate (eGFR) is calculated using the 2020 CKD-EPI creatinine equation. This equation utilizes serum creatinine, sex, and age as parameters. The creatinine assay has traceable calibration to isotope dilution-mass spectrometry. Refer to KDIGO guidelines for clinical interpretation. In patients with unstable renal function, e.g. those with acute kidney injury, the eGFR may not accurately reflect actual GFR. Performed By: #### 2 43201-21, 1988-03 ####[facility] LABCLIA [id number] [address] [address] [place] Glucose [Mass/Vol] 101 mg/dL High 74-99 [facility] Comment on above: Order Comment: Speci men Type: BLOOD SPECIMENOrdering Facility: [facility] Address: [place] [address] Result Comment: The [place] [employer] (ADA) provides guidance for cutoff values for fasting glucose and random glucose. The ADA defines fasting as no caloric intake for at least 8 hours. Fasting plasma glucose results between 100 to 125 mg/dL indicate increased risk for diabetes (prediabetes). Fasting plasma glucose results greater than or equal to 126 mg/dL meet the criteria for diagnosis of diabetes. In the absence of unequivocal hyperglycemia, results should be confirmed by repeat testing. In a patient with classic symptoms of hyperglycemia or hyperglycemic crisis, random plasma glucose results greater than or equal to 200 mg/dL meet the criteria for diagnosis of diabetes. Reference: Standards of Medical Care in Diabetes 2016, [place] [employer]. Diabetes Care. 2016.39(Suppl 1). Performed By: #### 2 43201-21, 1988-03 ####[facility] LABCLIA [id number] [place] [address] [place] Potassium [Moles/Vol] 4.1 mmol/L Normal 3.7-5.1 [facility] Comment on above: Order Comment: Quinn felder Type: BLOOD SPECIMENOrdering Facility: [facility] Address: [place] [address] Performed By: #### 2 4323-06, 1988-03 ####[facility] LABCLIA [id number] [facility] [place] [address] [place] Protein [Mass/Vol] 8.0 g/dL Normal 6.3-8.0 [facility] Comment on above: Order Comment: Speci men Type: BLOOD SPECIMENOrdering Facility: [facility] Address: [place] [address] Performed By: #### 2 4323-06, 1988-03 ####[facility] LABCLIA [id number] [facility] [place] [address] [place] Sodium [Moles/Vol] 143 mmol/L Normal 136-144 [facility] Comment on above: Order Comment: Speci men Type: BLOOD SPECIMENOrdering Facility: [facility] Address: [address] [place] [address] Performed By: #### 2 4323-8, 1988-03 ####[facility] LABCLIA [id number] [place] [address] [place] Urea nitrogen [Mass/Vol] 19 mg/dL Normal 9-24 [facility] Comment on above: Order Comment: Speci men Type: BLOOD SPECIMENOrdering Facility: [facility] Address: [address] [place] [address] Performed By: #### 2 4323-8, 1988-03 ####[facility] LABCLIA [id number] [place] [address] [place] ESR Westergren method (Bld) [Velocity]on 12-01-2023 ESR (Bld) [Velocity] 114 mm/h High 0-15 [facility] Comment on above: Order Comment: Speci men Type: BLOOD SPECIMENOrdering Facility: [facility] Address: [address] [place] [address] Performed By: #### 5 7021-8, 4537-7 ####[facility] LABCLIA [id number] [place] [address] [place] HBV core Ab Ser Qlon 024 HBV core Ab Ql (S) Negative Normal Negative [facility] Comment on above: Order Comment: Speci men Type: BLOOD SPECIMENOrdering Facility: [facility] Address: [address] [place] [address] Result Comment: No e vidence of current or past infection with Hepatitis B virus. Should recent infection be suspected, repeat testing may be considered 3-4 weeks after this draw. Performed By: #### 5 195-3, 90130-1, 46826-0 ####[facility] LABCLIA [id number] [place] [address] [place] HBV surface Ab Ql (S)on 11-16 HBV surface Ab Qn (S) <8.00 Normal [facility] Comment on above: Order Comment: Speci men Type: BLOOD SPECIMENOrdering Facility: [facility] Address: [address] [place] [address] Result Comment: <8 m IU/mL: No serological evidence of immunity to Hepatitis B Virus. >/= 8 to <12 mIU/mL: No serological evidence of immunity to Hepatitis B Virus. >/= 12 mIU/mL: Consistent with serological evidence of immunity to Hepatitis B Virus. Performed By: #### 5 195-3, 30909-8, 44199-7 ####[facility] LABCLIA [id number] [place] [address] [place] HBV surface Ab Ser Qlon 11-16 HBV surface Ab Ql (S) Negative Normal [facility] Comment on above: Order Comment: Speci men Type: BLOOD SPECIMENOrdering Facility: [facility] Address: [address] [place] [address] Result Comment: No s erological evidence of immunity to Hepatitis B Virus. Performed By: #### 5 195-3, 26969-6, 13524-4 ####[facility] LABIA [id number] [place] [address] [place] HBV surface Ag Ser Qlon 11-16 HBV surface Ag Ql (S) Negative Normal Negative [facility] Comment on above: Order Comment: Speci men Type: BLOOD SPECIMENOrdering Facility: [facility] Address: [address] [place] [address] Performed By: #### 5 195-3, 99963-6, 44008-3 ####[facility] LABIA [id number] [place] [address] [place] HCV Ab Ser Qlon 12-01-2023 HCV Ab Ql (S) Negative Normal Negative [facility] Comment on above: Order Comment: Speci men Type: BLOOD SPECIMENOrdering Facility: [facility] Address: [address] [place], [place] [address] [id number] Result Comment: The result suggests no evidence of active infection with Hepatitis C virus. Should recent infection be suspected, repeat testing may be considered 4-6 weeks after this draw. Performed By: #### 1 6128-1 ####[facility] LABCLIA [id number] [id number] [id number] [place] ED Note-Physicianon 11-28-19 ED Note-Physician Basic Information Time Seen: Juancarlos Josue PA-C 11/27/2023 10:20 Chief Complaint covid approx. 1 month ago. states b/l knee pain has increased since then and states he has generalized arthritic pain. prednisone completed with no improvement. also c/o b/l ankle pain. History of Present Illness 58-year-old male comes to the ED for evaluation of generalized myalgias. He has a history of rheumatoid arthritis. For the last few weeks has had worsening diffuse muscle and joint pain. He saw his PCP and was treated with steroids without any improvement. He recently was diagnosed with COVID, and symptoms have intensified since that time. No acute chest pain or shortness of breath. No fever, chills, nausea, vomiting. No focal area of pain or discomfort. Review of Systems A 10 point review of systems is negative except as noted above. Medical and Surgical History: Reviewed and noted Social history: Lives at home Tobacco: Denies Physical Exam Vitals & Measurements T: 36.7 ?C(Oral) HR: 112(Peripheral) RR: 18 BP: 147/94 SpO2: 95% HT: 168 cm WT: 73.8 kg BMI: 26.15 Nurses notes and vital signs reviewed and patient is not hypoxic. General: The patient appears well, resting comfortably. Skin: Warm, dry. Head: Atraumatic. Neck: No JVD. Eye: Normal conjunctiva. Ears, Nose, Mouth, and Throat: Moist mucous membranes. Cardiovascular: Strong distal pulses. Chest wall: Respiratory: Respirations are nonlabored. Back: Normal range of motion. Musculoskeletal: Normal ROM with no gross deformity. Joint deformities to the hands and wrist consistent with rheumatoid arthritis. Gastrointestinal: Urological: Neurological: Awake and alert. No focal deficits. Follows commands. Psychiatric: Cooperative. Medical Decision Making Patient presents with generalized muscle and joint pain. He has a history of rheumatoid arthritis with recent COVID infection. No chest pain or shortness of breath. No fevers. He recent saw his PCP and was treated with both oral and intramuscular steroids without much improvement. Laboratory studies reviewed and noted. Grossly stable. No electrolyte derangement or renal insufficiency. No leukocytosis. Will treat him symptomatically today with pain medication and muscle relaxers. He is discharged to follow-up with his PCP. Patient was encouraged to return to the ED if symptoms worsen or change. Assessment/Plan Joint pain (M25.50: Pain in unspecified joint) Rheumatoid arthritis (M06.9: Rheumatoid arthritis, unspecified) Ordered: acetaminophen-oxycodone, 1 tab(s), Oral, q6hr as needed for pain for 3 day(s), 15 tab(s), Refill(s) 0, [facility]/pharmacy #[id number], 168, cm, 11/27/23 10:26:00 EST, Height/Length Dosing, 73.8, kg, 11/27/23 10:26:00 EST, Weight Dosing Orders: methocarbamol, 1,500 mg = 2 tab(s), Oral, TID, X 3 day(s), # 18 tab(s), Refills(s) 0, Pharmacy: [facility]/pharmacy #[id number], 168, cm, 11/27/23 10:26:00 EST, Height/Length Dosing, 73.8, kg, 11/27/23 10:26:00 EST, Weight Dosing Automated Diff Basic Metabolic Panel CBC w/ Auto Diff eGFR Extra Blue Tube Extra SST Tube Disposition Plan Patient Discharge Condition Disposition: Discharged home Condition: Improved and stable Counseled: Patient and/or family were counseled to workup, results, treatment plan and follow-up recommendations Discharge Prescription List Prescriptions Percocet 5 mg-325 mg oral tablet, 1 tab(s), Oral, q6hr, PRN Robaxin-750 oral tablet, 1500 mg= 2 tab(s), Oral, TID Follow-up With When Contact Information Jose L Lackey In 3 days 11/30/2023 EST [address] [place] [address]- Business (1) Additional Instructions: Patient Education Rheumatoid Arthritis Attestation Patient seen and evaluated by the physician captain assistant. Attending physician was present in the emergency department and supervised care. This visit was performed by both the physician and an APC. I performed all aspects of the MDM as documented. This report was transcribed using voice recognition software. Every effort was made to ensure accuracy, however, inadvertently computerized manager local mistakes may be present. Appropriate healthcare PPE was used in evaluating this patient. The patient was placed in a mask. The healthcare provider was wearing mask, gloves, and utilizing proper hand hygiene. All equipment was properly cleansed. Problem List/Past Medical History Ongoing Acute diarrhea Adenomatous colon polyp Bladder mass Bladder stone BPH with urinary obstruction Continuous severe abdominal pain Gross hematuria Heartburn Hematochezia Hyperlipemia Incomplete bladder emptying Kidney stones Prostate calculus Rectal bleed Ulcerative colitis, universal Debary ulcerative colitis Urethral stone Historical Extreme obesity Ulcerative colitis Procedure/Surgical History Colonoscopy (03/23/2023), Cystoscopy (02/04/2021), Colonoscopy, Hernia repair, Procedure on hip, Procedure on knee. Medicatio (more content not included)... Normal [facility] Comment on above: Result Comment: Elec tronically Signed By: Juancarlos Josue PA-C\.br\Date and Time Signed: 11/27/23 18:42 EST\.br\Electronically Co-Signed By: Kavon Johnson DO\.br\Date and Time Co-Signed: 11/28/23 17:15 EST Auto Diffon 11-27-2023 Basophils/100 WBC (Bld) 0.7 % Normal 0.0-2.0 [facility] Comment on above: Order Comment: Order Added by Discern Expert. Performed By: #### 2 [id number], [id number], [id number], [id number] ####[facility] [address] [place] [address] Basophils/Leukocytes Auto (Bld) [Pure # fraction] 0.1 E9/L Normal 0.0-0.2 [facility] Comment on above: Order Comment: Order Added by Discern Expert. Performed By: #### 2 917384, 6815637, [id number], [id number] ####[facility] [address] [place] [address] Eosinophils/100 WBC (Bld) 0.0 % Normal 0.0-8.0 [facility] Comment on above: Order Comment: Order Added by Discern Expert. Performed By: #### 2 197389, 2604287, [id number], [id number] ####[place] [place] [place] [address] Eosinophils/Leukocytes Auto (Bld) [Pure # fraction] 0.0 E9/L Normal 0.0-0.5 [facility] Comment on above: Order Comment: Order Added by Discern Expert. Performed By: #### 2 423085, 3826624, 83394284, 5202128 ####[address] [address] Lymphocytes/100 WBC (Bld) 18.8 % Normal 14.0-50.0 [facility] Comment on above: Order Comment: Order Added by Jose Expert. Performed By: #### 2 233892, 5463174, 14805539, 8050034 ####[address] [address] Lymphocytes/Leukocytes Auto (Bld) [Pure # fraction] 1.8 E9/L Normal 1.0-4.0 [facility] Comment on above: Order Comment: Order Added by Jose Expert. Performed By: #### 2 446985, 9526820, 65166448, 8373502 ####[address] [address] Monocytes/100 WBC (Bld) 9.3 % Normal 4.0-14.0 [facility] Comment on above: Order Comment: Order Added by Discern Expert. Performed By: #### 2 546463, 4888941, 23822501, 5026681 ####[address] [address] Monocytes/Leukocytes Auto (Bld) [Pure # fraction] 0.9 E9/L Normal 0.2-1.0 [facility] Comment on above: Order Comment: Order Added by Jose Expert. Performed By: #### 2 535738, 8072068, 51267183, 7812198 ####[address] [place] [address] Neutrophils/100 WBC (Bld) 71.2 % Normal 36.0-75.0 [facility] Comment on above: Order Comment: Order Added by Discern Expert. Performed By: #### 2 711997, 1468794, 73290481, 6345424 ####[facility] [address] [place] [address] Neutrophils/Leukocytes Auto (Bld) [Pure # fraction] 6.9 E9/L Normal 2.0-7.5 [facility] Comment on above: Order Comment: Order Added by Discern Expert. Performed By: #### 2 943320, 7018882, 53068817, 1370075 ####[facility] [address] [place] [address] BMPon 11-27-2023 Anion gap [Moles/Vol] 13 mmol/L Normal 6-16 [facility] Comment on above: Performed By: #### 2 711192, 5607707, 74654901, 4347044 ####[facility] [address] [place] [address] BUN/Creat Ratio 21 No Units High 10-20 [facility] Comment on above: Performed By: #### 2 852714, 1280300, 45407921, 5025960 ####[facility] [address] [place] [address] Calcium [Mass/Vol] 9.2 mg/dL Normal 8.9-11.1 [facility] Comment on above: Performed By: #### 2 020283, 7100011, 17415502, 9067974 ####[facility] [address] [place] [address] Chloride [Moles/Vol] 105 mmol/L Normal 101-111 [facility] Comment on above: Performed By: #### 2 974443, 1765419, 07236377, 5745915 ####[facility] [address] [place] [address] CO2 [Moles/Vol] 24 mmol/L Normal 21-31 [facility] Comment on above: Performed By: #### 2 177871, 8402695, 74409463, 1010038 ####[facility] [address] [place] [address] Creatinine [Mass/Vol] 0.7 mg/dL Normal 0.5-1.3 [facility] Comment on above: Performed By: #### 2 679278, 9100806, 73199127, 7398011 ####[facility] [address] [place] [address] Glucose [Mass/Vol] 121 mg/dL Normal 55-199 [facility] Comment on above: Performed By: #### 2 406523, 2363334, 83676161, 1013086 ####[facility] [address] [place] [address] Potassium [Moles/Vol] 3.9 mmol/L Normal 3.5-5.3 [facility] Comment on above: Performed By: #### 2 893799, 0892000, 29375963, 4795955 ####[facility] [address] [place] [address] Sodium [Moles/Vol] 138 mmol/L Normal 135-145 [facility] Comment on above: Performed By: #### 2 637340, 5387683, 85664199, 4050549 ####[facility] [address] [place] [address] Urea nitrogen [Mass/Vol] 15 mg/dL Normal 5-21 [facility] Comment on above: Performed By: #### 2 180692, 5922398, 19286239, 5440286 ####[facility] [address] [place] [address] CBC w/ Auto Diffon 4 Erythrocyte distribution width (RBC) [Ratio] 14.0 % Normal 10.9-14.2 [facility] Comment on above: Performed By: #### 2 089621, 4654513, 75062890, 1027895 ####[facility] [address] [place] [address] Hematocrit (Bld) [Volume fraction] 35.0 % Low 37.7-49.0 [facility] Comment on above: Performed By: #### 2 541175, 2294549, 15610932, 3380825 ####[facility] [address] [place] [address] Hemoglobin (Bld) [Mass/Vol] 11.7 g/dL Low 13.5-17.5 [facility] Comment on above: Performed By: #### 2 799599, 1480526, 42219413, 8258187 ####[place] [address] MCH (RBC) [Entitic mass] 29.1 pg Normal 27.0-34.0 [facility] Comment on above: Performed By: #### 2 129848, 6403774, 47617620, 4980647 ####[place] [address] MCHC (RBC) [Mass/Vol] 33.3 g/dL Normal 31.4-36.0 [facility] Comment on above: Performed By: #### 2 408378, 5051919, 98510402, 1499509 ####[address] [address] MCV (RBC) [Entitic vol] 87.3 fL Normal 80.0-100.0 [facility] Comment on above: Performed By: #### 2 647451, 4792681, 86399872, 9827887 ####[facility] [address] [place] [address] Platelet mean volume (Bld) [Entitic vol] 6.3 fL Low 6.4-10.8 [facility] Comment on above: Performed By: #### 2 194259, 9402142, 95029900, 9155403 ####[address] [address] Platelets (Bld) [#/Vol] 462.0 E9/L Normal 150. 0-500. 0 [facility] Comment on above: Performed By: #### 2 198858, 7455384, 36870612, 4449146 ####[facility] [address] [place] [address] RBC (Bld) [#/Vol] 4.0 E12/L Low 4.3-5.9 [facility] Comment on above: Performed By: #### 2 299634, 2172388, 92634058, 0780597 ####[facility] [address] [place] [address] WBC corrected for nucl RBC Auto (Bld) [#/Vol] 9.7 E9/L Normal 4.0-11.0 [facility] Comment on above: Performed By: #### 2 934644, 8992081, 59642596, 4073908 ####[facility] [address] [place] [address] Consent for Treatmenton 11-16 Consent for Treatment [id number] Normal [facility] Discharge Instructionson Discharge Instructions [id number] Normal [facility] ED Clinical Summaryon 2023 ED Clinical Summary (Inserted Image. Perla ble to display) [address] [address] ED Clinical Summary Person Information Name: JAM TOSCANO [facility] Age: 58 Years : 1965 Sex: Male Language: Israeli PCP: Jose L Lackey MD Marital Status: Single Visit Id: Visit Reason: Ankle pain-swelling; Knee pain-swelling; S/P COVID +/ARTHRITIS PAIN Speciality: Acuity: 4 Enc Type: Emergency Med Service: Emergency Arrival: 11/27/2023 10:14:59 Discharge: 11/27/2023 12:48:38 LOS: 000 02:34 Checkin: 11/27/2023 10:14:59 Checkout: 11/27/2023 12:48:38 Dispo Type: Home (Routine DC) EVENTS: Event Name Event Status Request Date/Time Start Date/Time Complete Date/Time Arrive Complete 11/27/2023 10:14:59 11/27/2023 10:14:59 11/27/2023 10:14:59 Document Home Meds Request 11/27/2023 10:14:59 Triage Complete 11/27/2023 10:14:59 11/27/2023 10:26:17 11/27/2023 10:26:17 Bed Assign Complete 11/27/2023 10:19:07 11/27/2023 10:19:07 11/27/2023 10:19:07 Dr Exam Complete 11/27/2023 10:19:07 11/27/2023 10:20:21 11/27/2023 10:20:21 RN Exam Complete 11/27/2023 10:19:07 11/27/2023 10:28:35 11/27/2023 10:28:35 Registration Complete 11/27/2023 10:20:21 11/27/2023 10:23:35 11/27/2023 10:23:35 Dr Exam Complete 11/27/2023 10:21:24 11/27/2023 10:21:24 11/27/2023 10:21:24 Reg Complete Request 11/27/2023 10:23:35 Reg Bed Request Complete 11/27/2023 10:23:35 11/27/2023 10:23:35 11/27/2023 10:23:35 Pending Labs Complete 11/27/2023 10:41:26 11/27/2023 11:19:21 Lab Complete 11/27/2023 10:41:26 11/27/2023 11:19:21 Pending Labs Complete 11/27/2023 10:58:28 11/27/2023 10:58:28 11/27/2023 11:19:21 Lab Complete 11/27/2023 10:58:28 11/27/2023 10:58:28 11/27/2023 11:19:21 Pending Labs Complete 11/27/2023 11:00:19 11/27/2023 11:00:19 11/27/2023 11:00:20 Pending Labs Complete 11/27/2023 11:00:28 11/27/2023 11:00:28 11/27/2023 11:00:28 Pending Labs Complete 11/27/2023 11:04:48 11/27/2023 11:04:48 11/27/2023 11:04:54 Lab Complete 11/27/2023 11:04:48 11/27/2023 11:04:48 11/27/2023 11:04:54 Discharge Complete 11/27/2023 12:23:08 11/27/2023 12:48:44 11/27/2023 12:48:44 Transfer Complete 11/27/2023 12:48:44 11/27/2023 12:48:44 11/27/2023 12:48:44 ADDRESS: [address] [place] [address] [facility] [id number] PHYS DOC NOTES: MEDICAL INFORMATION: Prescriptions Given: New Medications [facility]/pharmacy #[id number], [address] [place] [place], [place] [id number], [phone] acetaminophen-oxycodone (Percocet 5 mg-325 mg oral tablet) 1 Tablets By Mouth every 6 hours as needed as needed for pain for 3 Days. Refills: 0. methocarbamol (Robaxin-750 oral tablet) 2 Tablets By Mouth 3 times a day for 3 Days. Refills: 0. Medications to Continue with No Changes Other Medications adalimumab (Humira Pen 40 mg/0.4 mL subcutaneous kit) 1 pen Subcutaneous every other week. Refills: 5. adalimumab (Humira Pen Crohns/Ulcer Colitis/Hidradenitis Suppurativa Starterr Pack 80 mg/0.8 mL subcutaneous ki) Inject 160 mg on day one, Inject 80 mg on day 15. Refills: 0. atorvastatin (atorvastatin 20 mg Tab) 1 Tablets By Mouth every day. cholecalciferol (cholecalciferol 5000 intl units oral capsule) By Mouth every day. dicyclomine (dicyclomine 10 mg Cap) 1 Capsules By Mouth 4 times a day. ezetimibe (Zetia 10 mg Tab) 1 Tablets By Mouth every day. folic acid (folic acid 1 mg Tab) 1 Tablets By Mouth every day. lisinopril (lisinopril 20 mg Tab) 1 Tablets By Mouth every day. mesalamine (mesalamine 4 g/60 mL rectal enema) 1 Each By rectum once a day (at bedtime). Refills: 3. mesalamine (mesalamine 4 g/60 mL rectal enema) 1 Each By rectum once a day (at bedtime). Refills: 6. multivitamin with minerals (Multivitamins and Minerals) 1 tab By Mouth every day. naproxen (naproxen 500 mg Tab) 1 Tablets By Mouth 2 times a day as needed for pain. Refills: 0. omeprazole (omeprazole 40 mg Cap-DR) 1 Capsules By Mouth every day. Refills: 11. ondansetron (ondansetron 4 mg Tab) 20 EA, TAKE 1 TABLET BY MOUTH EVERY 6 HOURS NEEDED FOR NAUSEA AND VOMITING. ondansetron (Zofran ODT 4 mg Tab-Dis) 1 Tablets By Mouth every 8 hours as needed Nausea/Vomiting. Refills: 0. sulfasalazine (sulfasalazine 500 mg oral enteric coated tablet) 2 Tablets By Mouth 4 times a day for 30 Days. Refills: 11. tamsulosin (Flomax 0.4 mg Cap) 1 Capsules By Mouth every day. Refills: 0. Turmeric 400 Milligram By Mouth every day. vedolizumab (Entyvio 300 mg intravenous injection) 300 mg/kg at week 0, 2 & 6 then 300 mg/kg every 8 weeks. Refills: 6. PATIENT EDUCATION INFORMATION: Instructions: Rheumatoid Arthritis Follow up: With: Address: When: Jose L Lackey [address] [place] [address], [facility] [address] [place] [id number] Business (1) In 3 days 11/30/2023 DIAGNOSIS: Joint pain; Rheumatoid arthritis Normal [facility] ED Patient Education Noteon 11-27-2023 ED Patient Education Note Rheumatology Rheumatoid Arthritis Rheumatoid arthritis (RA) is a long-term (chronic) disease that causes inflammation in the joints. RA may start slowly. It most often affects the small joints of the hands and feet. Usually, the same joints are affected on both sides of the body. Inflammation from RA can also affect other parts of the body, including the heart, eyes, or lungs. There is no cure for RA, but medicines can help your symptoms and stop or slow down the progression of the disease. What are the causes? RA is an autoimmune disease. When you have an autoimmune disease, your body's defense system (immune system) mistakenly attacks healthy body tissues. The exact cause of RA is not known. What increases the risk? The following factors may make you more likely to develop this condition: ? Being female. ? Having a family history of RA or other autoimmune diseases. ? Having a history of smoking. ? Being obese. ? Having been exposed to pollutants or chemicals. What are the signs or symptoms? Symptoms of this condition usually start gradually. They are often worse in the morning. The first symptom may be morning stiffness that lasts longer than 30 minutes. As RA progresses, symptoms may include: ? Pain, stiffness, swelling, warmth, and tenderness in joints on both sides of your body. ? Loss of energy. ? Loss of appetite. ? Weight loss. ? Low-grade fever. ? Dry eyes and dry mouth. ? Firm lumps (rheumatoid nodules) that grow beneath your skin in areas such as your forearm bones near your elbows and on your hands. ? Changes in the appearance of joints (deformity) and loss of joint function. Symptoms of this condition vary from person to person. ? Symptoms of RA often come and go. ? Sometimes, symptoms get worse for a period of time. These are called flares. How is this diagnosed? This condition is diagnosed based on your symptoms, medical history, and a physical exam. You may have X-rays or an MRI to check for the type of joint changes that are caused by RA. You may also have blood tests to look for: ? Proteins (antibodies) that your immune system may make if you have RA. These include rheumatoid factor (RF) and anti-CCP. ? When blood tests show these proteins, you are said to have seropositive RA. ? When blood tests do not show these proteins, you may have seronegative RA. ? Inflammation in your blood. ? A low number of red blood cells (anemia). How is this treated? The goals of treatment are to relieve pain, reduce inflammation, and slow down or stop joint damage and disability. Treatment may include: ? Lifestyle changes. It is important to rest as needed, eat a healthy diet, and exercise. ? Medicines. Your health care provider may adjust your medicines every 3 months until treatment goals are reached. Common medicines include: ? Pain relievers (analgesics). ? Corticosteroids and NSAIDs, such as ibuprofen, to reduce inflammation. ? Disease-modifying antirheumatic drugs (DMARDs) to try to slow the course of the disease. ? Biologic response modifiers to reduce inflammation and damage. ? Physical therapy and occupational therapy. ? Surgery, if you have severe joint damage. Joint replacement or fusing of joints may be needed. Your health care provider will work with you to identify the best treatment option for you based on assessment of the overall disease activity in your body. Follow these instructions at home: Managing pain, stiffness, and swelling If directed, apply heat to the affected area as often as told by your health care provider. Use the heat source that your health care provider recommends, such as a moist heat pack or a heating pad. ? Place a towel between your skin and the heat source. ? Leave the heat on for 20?30 minutes. ? Remove the heat if your skin turns bright red. This is especially important if you are unable to feel pain, heat, or cold. You have a greater risk of getting burned. Activity ? Return to your normal activities as told by your health care provider. Ask your health care provider what activities are safe for you. ? Rest when you are having a flare. ? Start an exercise program as told by your health care provider. This may include physical therapy exercises to maintain movement and strength in your joints. General instructions ? Take nwyi-wly-yopptbc and prescription medicines only as told by your health care provider. ? Keep all follow-up visits. This is important. Where to find more information ? [employer]: rheumatology.org ? Arthritis Foundation: arthritis.org Contact a health care provider if: ? You have a flare-up of RA symptoms. ? You have a fever. ? You have side effects from your medicines. Get help right away if: ? You have chest pain. ? You have trouble breathing. ? You quickly develop a hot, painful joint that is more severe than y (more content not included)... Normal [facility] ED Patient Summaryon 024 ED Patient Summary (Inserted Image. Perla ble to display) [address] [address] Patient Discharge Instructions Person Information Name: JAM TOSCANO Age: 58 Years Arrival Date: 11/27/2023 10:14:59 Discharge Diagnosis: Joint pain; Rheumatoid arthritis Primary Care Physician: Jose L Lackey MD Provider Information Primary Provider: Kavon Johnson DO Advanced Interim Controller:Juancarlos Josue PA-C The exam and treatment you received in the Emergency Department were for an urgent problem and are not intended as complete care. It is important that you follow up with a doctor, nurse practitioner, or physician?s captain assistant for ongoing care. If your symptoms become worse or you do not improve as expected and you are unable to reach your usual health care provider, you should return to the Emergency Department. We are available 24 hours a day. JAM TOSCANO has been given the following list of patient education materials, prescriptions and follow-up instructions: Follow-up Instructions: With: Address: When: Jose L Lackey [address] [place] [address], [facility] [place] [address] Business (1) In 3 days 11/30/2023 In the event that this physician does not participate in your insurance network, please consult with your insurance company to find a nearby participating provider. Patient Education Materials: Rheumatoid Arthritis A MESSAGE TO ALL PATIENTS REGARDING OPIOIDS PRESCRIPTION OPIOIDS: WHAT YOU NEED TO KNOW Prescription opioids can be used to help relieve wlyztpaj-uz-jcsqsm pain and are often prescribed following a surgery or injury, or for certain health conditions. These medications can be an important part of the treatment but also come with serious risks. It is important to work with your healthcare provider to make sure you are getting the safest, most effective care. WHAT ARE THE RISKS AND SIDE EFFECTS OF OPIOID USE? Prescription opioids carry serious risks of addiction and overdose, especially with prolonged use. An opioid overdose, often marked by slowed breathing, can cause sudden . The use of prescription opioids can have a number of side effects as well, even when taken as directed: ? Tolerance?meaning you might need to take more of the medication for the same pain relief ? Physical dependence?meaning you have symptoms of withdrawal when a medication is stopped ? Increased sensitivity to pain ? Constipation ? Nausea, vomiting, and dry mouth ? Sleepiness and dizziness ? Confusion ? Depression ? Low levels of testosterone that can result in lower sex drive, energy, and strength ? Itching and sweating RISKS ARE GREATER WITH: ? History of drug misuse, substance use disorder, or overdose ? Mental health conditions (such as depression or anxiety) ? Sleep apnea ? Older age (65 years and older) ? Avoid alcohol while taking prescription opioids. Also, unless specifically advised by your health care provider, medications to avoid include: ? Benzodiazepines (such as Xanax or Valium) ? Muscle relaxants (such as Soma or Flexeril) ? Hypnotics (such as Ambien or Lunesta) ? Other prescription opioids KNOW YOUR OPTIONS Talk to your health care provider about ways to manage your pain that don?t involve prescription opioids. Some of these options may actually work better and have fewer risks and side effects. Options may include: ? Pain relievers such as acetaminophen, ibuprofen, and naproxen ? Some medication that are also used for depression or seizures ? Physical therapy and exercise ? Cognitive behavioral therapy, a psychological, goal-directed approach, in which patients learn how to modify physical, behavioral, and emotional triggers of pain and stress. IF YOU ARE PRESCRIBED OPIOIDS FOR PAIN: ? Never take opioids in greater amounts or more often than prescribed. ? Follow up with your primary health care provider. o Work together to create a plan on how to manage your pain. o Talk about ways to help manage your pain that don?t involve prescription opioids. o Talk about any and all concerns and side effects. ? Help prevent misuse and abuse o Never sell or share prescription opioids. o Never use another person?s prescription opioids. ? Store prescription opioids in a secure place and out of reach of others (this may include visitors, children, friends, and family). ? Safely dispose of unused prescription opioids: Find your community drug take-back program or your pharmacy mail-back program, or flush them down the toilet, following guidance from the Food and Drug Administration (www.fda.gov/Drugs/Resour cesForYou). ? Visit www.cdc.gov/drugoverdose to learn about the risks of opioids abuse and overdose. ? If you believe you may be struggling with addiction, tell your health day care teacher and ask for guidance or call SAMHSA?S National Helpline at 6-565-002-KPR (more content not included)... [facility] eGFRon 11-27-2023 GFR/1.73 sq M.predicted among non-blacks MDRD (S/P/Bld) [Vol rate/Area] mL/min/{1.73_m2} Normal >=59 [facility] Comment on above: Order Comment: Order added by Discern Expert. Performed By: #### 2 [id number], [id number], [id number], [id number] ####[facility] [address] [place] [id number] ED Note-Physicianon 11-08-20 ED Note-Physician Basic Information Time Seen: Barbara Brand PA-C 11/04/2023 17:52 Chief Complaint Pt. came here d/t nausea, chills and diarrhea that started yesterday. Hx. of Colitis and Kidney stone History of Present Illness 58-year-old male past medical history BPH, bladder mass, gross hematuria, ulcerative colitis presents for sludgy stool on the toilet paper when he wiped that started yesterday. He also complains of chills that started overnight. He does complain of some lower abdominal pain. He complains of a cough. Denies fever, dizziness, weakness, back pain, n/v/d, dysuria, shortness of breath or chest pain Review of Systems Review of systems negative unless otherwise stated in HPI Physical Exam Vitals & Measurements T: 37.7 ?C(Tympanic) HR: 98(Monitored) RR: 17 BP: 150/98 SpO2: 93% HT: 167 cm WT: 73.5 kg BMI: 26.35 GENERAL: ALERT, NO ACUTE DISTRESS, talking in full and complete sentences SKIN: WARM, DRY, INTACT; NO CYANOSIS, NO RASH HEAD: NORMOCEPHALIC, ATRAUMATIC EYE: PERRL, EOMI, NORMAL CONJUNCTIVA, NO DISCHARGE, NO NYSTAGMUS NOSE: NARES PATENT MOUTH: ORAL MUCOSA MOIST THROAT: NO STRIDOR NECK: SUPPLE, TRACHEA MIDLINE, FROM CARDIOVASCULAR: RRR, NO MURMUR, +S1, +S2 RESPIRATORY: LUNGS CTA, NON-LABORED RESPIRATIONS, BS EQUAL, SYMMETRICAL EXPANSION, NORHONCHI, WHEEZES, RALES, NO STRIDOR, NO RETRACTIONS ABDOMEN: SOFT, NT EXTREMITIES: NO CYANOSIS, NO EDEMA, FROM X 4, PULSES INTACT, NORMAL STRENGTH, CAPILLARY REFILL INTACT NEUROLOGICAL: A&OX3 PSYCHIATRIC: COOPERATIVE, APPROPRIATE MOOD AND AFFECT Medical Decision Making EKG sinus rhythm at a rate of [address] elevations. He is given IV fluids. Final read of chest x-ray shows a pneumonia in the right middle lobe and he is positive for COVID. Potassium 3.3 and given 50 p.o. UA positive for blood and RBCs this is similar to his previous and has a history of gross hematuria.Final read of CT on pelvis with contrast shows nonspecific bowel thickening measuring up to 7 mm of the distal colon which may indicate nonspecific inflammation or colitis. Patient will be placed on Augmentin for the colitis, which will cover any secondary bacterial pneumonia. He is ambulating without any issues and nontoxic-appearing and will be discharged with a prescription for Augmentin follow-up family doctor. He is given his first dose here. Afebrile, not tachycardic, not tachypneic, nontoxic-appearing, tolerating p.o. and ambulating at baseline and hemodynamically stable to be discharged home. Educated side effect of medications. Answered all questions. Patient in agreement with treatment. Assessment/Plan 1. COVID-19, (U07.1: COVID-19)Pneumonia due to COVID-19 virus Ordered: amoxicillin-clavulanate, = 1 tab(s), Oral, q12hr, X 10 day(s), # 20 tab(s), Refills(s) 0, Pharmacy: [facility]/pharmacy #[id number], 167, cm, 11/04/23 17:47:00 EST, Height/Length Dosing, 73.5, kg, 11/04/23 17:47:00 EST, Weight Dosing 2. Hypokalemia (E87.6: Hypokalemia) Ordered: amoxicillin-clavulanate, = 1 tab(s), Oral, q12hr, X 10 day(s), # 20 tab(s), Refills(s) 0, Pharmacy: [facility]/pharmacy #[id number], 167, cm, 11/04/23 17:47:00 EST, Height/Length Dosing, 73.5, kg, 11/04/23 17:47:00 EST, Weight Dosing 4. Colitis (K52.9: Noninfective gastroenteritis and colitis, unspecified) Ordered: amoxicillin-clavulanate, = 1 tab(s), Oral, q12hr, X 10 day(s), # 20 tab(s), Refills(s) 0, Pharmacy: [facility]/pharmacy #[id number], 167, cm, 11/04/23 17:47:00 EST, Height/Length Dosing, 73.5, kg, 11/04/23 17:47:00 EST, Weight Dosing Pneumonia due to coronavirus disease 2019 (J12.82: Pneumonia due to coronavirus disease 2019) Orders: amoxicillin-clavulanate, 1 tab(s), Tab, Oral, Once, Stop date 11/04/23 20:04:00 EST, STAT, Start date 11/04/23 20:04:00 EST potassium bicarbonate, 50 mEq = 2 tab(s), Tab-Eff, Oral, Once, Stop date 11/04/23 19:13:00 EST, STAT, Start date 11/04/23 19:13:00 EST, 11/04/23 19:13:00 EST Sodium Chloride 0.9% intravenous solution 500 mL, 500 mL, IV, 500 mL/hr, STAT, Start date 11/04/23 19:10:00 EST, 1 hour(s), Total volume (mL): 500, Bolus Dose: 500 mL, 73.5 kg, 1.85, m2 Automated Diff CBC w/ Auto Diff Comprehensive Metabolic Panel CT Abdomen/Pelvis w/ Contrast ECG 12 Lead Adult eGFR Extra SST Tube Lactic Acid Magnesium Level PT & PTT Rapid COVID Antigen ([facility]) Saline Lock Insert Troponin 0 Hr. UA With Cult Reflex XR Chest Single View Medications Administered Given Sodium Chloride 0.9% IV Dawn 500 mL 500 mL, 500 mL, IV Augmentin 875 mg-125 mg Tab, 1 tab(s), Oral potassium bicarbonate 25 mEq Tab (K-LYTE), 50 mEq, Oral Disposition Plan Patient Discharge Condition Stable Discharge Disposition Home Discharge Prescription List Prescriptions Augmentin 875 mg oral tablet, 1 tab(s), Oral, q12hr Follow-up With When Contact Information Jose L Lackey MD In 3 days 11/07/2023 EST [address] [facility] [place] [address] [place] [address]- Additional Instructions: Patient Education COVID-19 Colitis Hyp (more content not included)... Normal [facility] Comment on above: Result Comment: Elec tronically Signed By: Barbara Brand PA-C\.br\Date and Time Signed: 11/04/23 20:21 EST\.br\Electronically Co-Signed By: Kavon Johnson DO\.br\Date and Time Co-Signed: 11/08/23 19:04 EST Reportability Response - Pub [facility] [place] [facility] 11-08-2023 Reportability Response - Public Health {[id number]- [id number]}X ML Normal [facility] Auto Diffon 11-04-2023 Basophils/100 WBC (Bld) 0.3 % Normal 0.0-2.0 [facility] Comment on above: Order Comment: Order Added by Discern Expert. Performed By: #### 1 [id number], 3388907, 87892281, 90318191, 2811769, 6543253, 7951149, 9306928 ####[facility] [address] [place] [address] Basophils/Leukocytes Auto (Bld) [Pure # fraction] 0.0 E9/L Normal 0.0-0.2 [facility] Comment on above: Order Comment: Order Added by Discern Expert. Performed By: #### 1 5757231, 9706197, 08166594, 96918920, 0257370, 6144751, 2655356, 3789403 ####[facility] [address] [place] [address] Eosinophils/100 WBC (Bld) 0.0 % Normal 0.0-8.0 [facility] Comment on above: Order Comment: Order Added by Discern Expert. Performed By: #### 1 0051464, 9309841, 47367638, 68522455, 5774312, 6044493, 9782870, 3510822 ####[facility] [address] [place] [address] Eosinophils/Leukocytes Auto (Bld) [Pure # fraction] 0.0 E9/L Normal 0.0-0.5 [facility] Comment on above: Order Comment: Order Added by Discern Expert. Performed By: #### 1 4983133, 3920486, 50153243, 87857521, 7012185, 6463833, 1773476, 3698499 ####[address] [place] [address] Lymphocytes/100 WBC (Bld) 18.0 % Normal 14.0-50.0 [facility] Comment on above: Order Comment: Order Added by Discern Expert. Performed By: #### 1 1677856, 0428304, 69507544, 82030985, 6635336, 0906467, 5505908, 0945812 ####[address] [address] Lymphocytes/Leukocytes Auto (Bld) [Pure # fraction] 1.1 E9/L Normal 1.0-4.0 [facility] Comment on above: Order Comment: Order Added by Jose Expert. Performed By: #### 1 5371131, 7021469, 72977367, 97975412, 9423648, 1157316, 0455159, 8290105 ####[address] [address] Monocytes/100 WBC (Bld) 8.0 % Normal 4.0-14.0 [facility] Comment on above: Order Comment: Order Added by Jose Expert. Performed By: #### 1 6022533, 8919525, 31460877, 33231449, 5268127, 5802680, 5571563, 0983642 ####[address] [address] Monocytes/Leukocytes Auto (Bld) [Pure # fraction] 0.5 E9/L Normal 0.2-1.0 [facility] Comment on above: Order Comment: Order Added by Jose Expert. Performed By: #### 1 0834515, 8292184, 84817787, 40218400, 1718365, 0105516, 5945892, 2616632 ####[address] [address] Neutrophils/100 WBC (Bld) 73.7 % Normal 36.0-75.0 [facility] Comment on above: Order Comment: Order Added by Discern Expert. Performed By: #### 1 7031249, 3315492, 41822947, 40829612, 0287166, 2413504, 9487191, 2427646 ####[facility] [address] [place] [address] Neutrophils/Leukocytes Auto (Bld) [Pure # fraction] 4.5 E9/L Normal 2.0-7.5 [facility] Comment on above: Order Comment: Order Added by Discern Expert. Performed By: #### 1 9628810, 7099512, 84699546, 40744539, 8748815, 3824836, 7950316, 2283700 ####[facility] [address] [place] [address] CBC w/ Auto Diffon Erythrocyte distribution width (RBC) [Ratio] 14.0 % Normal 10.9-14.2 [facility] Comment on above: Performed By: #### 1 1588766, 2962748, 78345856, 22666370, 2563606, 9359796, 6069175, 8534637 ####[facility] [address] [place] [address] Hematocrit (Bld) [Volume fraction] 33.4 % Low 37.7-49.0 [facility] Comment on above: Performed By: #### 1 1608397, 3391070, 87892061, 66283937, 1818841, 9411839, 0338928, 5664336 ####[facility] [address] [place] [address] Hemoglobin (Bld) [Mass/Vol] 11.3 g/dL Low 13.5-17.5 [facility] Comment on above: Performed By: #### 1 6794101, 2108797, 08587790, 49930858, 2858821, 8632429, 6340311, 2817412 ####[facility] [address] [place] [address] MCH (RBC) [Entitic mass] 30.4 pg Normal 27.0-34.0 [facility] Comment on above: Performed By: #### 1 3243711, 2832888, 21315833, 73435056, 9575862, 0675818, 8176068, 2669422 ####[facility] [address] [place] [address] MCHC (RBC) [Mass/Vol] 33.9 g/dL Normal 31.4-36.0 [facility] Comment on above: Performed By: #### 1 4973587, 0279792, 92895575, 84439175, 0872638, 7929611, 7131909, 5516403 ####[address] [place] [address] MCV (RBC) [Entitic vol] 89.7 fL Normal 80.0-100.0 [facility] Comment on above: Performed By: #### 1 0157330, 8508719, 18512573, 60988761, 2687009, 4535902, 3953018, 9420967 ####[address] [place] [address] Platelet mean volume (Bld) [Entitic vol] 6.4 fL Normal 6.4-10.8 [facility] Comment on above: Performed By: #### 1 8180921, 6289633, 42478468, 58648625, 9943847, 4684071, 4531289, 5127288 ####[facility] [address] [place] [address] Platelets (Bld) [#/Vol] 224.0 E9/L Normal 150. 0-500. 0 [facility] Comment on above: Performed By: #### 1 7712512, 2399594, 66390685, 52742266, 3683291, 9469039, 5299579, 7512557 ####[address] [place] [address] RBC (Bld) [#/Vol] 3.7 E12/L Low 4.3-5.9 [facility] Comment on above: Performed By: #### 1 8910243, 2048502, 45956669, 15669836, 1770196, 0803337, 4894316, 9825799 ####[facility] [address] [place] [address] WBC corrected for nucl RBC Auto (Bld) [#/Vol] 6.0 E9/L Normal 4.0-11.0 [facility] Comment on above: Performed By: #### 1 8158684, 7735693, 58149192, 84687007, 9472472, 3116685, 1342445, 0359659 ####[facility] [address] [place] [address] CMPon 11-04-2023 Albumin [Mass/Vol] 3.4 g/dL Normal 3.3-5.0 [facility] Comment on above: Performed By: #### 1 2566885, 3411069, 71092759, 85171348, 2012039, 0997948, 0239636, 8044933 ####[facility] [address] [place] [address] Albumin/Globulin [Mass ratio] 1.1 {ratio} Normal 1.1-2.2 [facility] Comment on above: Performed By: #### 1 0976049, 0247309, 27128216, 39257464, 9209797, 8262515, 5571162, 8628409 ####[facility] [address] [place] [address] Alk Phos 106 Int._Unit/L High 21-98 [facility] Comment on above: Performed By: #### 1 9364915, 2913454, 27059275, 65340048, 4626637, 6065664, 7491882, 4710961 ####[facility] [address] [place] [address] ALT 19 Int._Unit/L Normal 6-46 [facility] Comment on above: Performed By: #### 1 8632249, 7303181, 24567113, 97403945, 3495264, 7700040, 4352399, 6750937 ####[facility] [address] [place] [address] Anion gap [Moles/Vol] 10 mmol/L Normal 6-16 [facility] Comment on above: Performed By: #### 1 3013306, 0187684, 10200594, 83854083, 3433149, 6876118, 7532684, 4208358 ####[facility] [address] [place] [address] AST 25 Int._Unit/L Normal 5-43 [facility] Comment on above: Performed By: #### 1 1991935, 2781732, 14263975, 49931462, 3263704, 6415639, 1464804, 9676812 ####[facility] [address] [place] [address] Bili Total 0.5 mg/dL Normal 0.0-1.1 [facility] Comment on above: Performed By: #### 1 7549274, 1981026, 21551499, 56801390, 9988530, 2306743, 3990540, 2786018 ####[facility] [address] [place] [address] BUN/Creat Ratio 13 No Units Normal 10-20 [facility] Comment on above: Performed By: #### 1 9164676, 0130652, 60753958, 15019221, 1199516, 6242247, 5005335, 6046357 ####[facility] [address] [place] [address] Calcium [Mass/Vol] 8.2 mg/dL Low 8.9-11.1 [facility] Comment on above: Performed By: #### 1 2413059, 7304172, 16176647, 73008942, 1557324, 2091319, 9197232, 6195964 ####[facility] [address] [place] [address] Chloride [Moles/Vol] 105 mmol/L Normal 101-111 [facility] Comment on above: Performed By: #### 1 0593488, 4986384, 96975338, 97536599, 1922451, 7451695, 8352022, 5970726 ####[facility] [address] [place] [address] CO2 [Moles/Vol] 26 mmol/L Normal 21-31 [facility] Comment on above: Performed By: #### 1 1039439, 7076967, 10179096, 30850231, 4311977, 7111469, 1529037, 9888921 ####[facility] [address] [place] [address] Creatinine [Mass/Vol] 0.9 mg/dL Normal 0.5-1.3 [facility] Comment on above: Performed By: #### 1 7886615, 0528542, 07522968, 66178386, 0935495, 9567867, 8044143, 3833287 ####[facility] [address] [place] [address] Globulin (S) [Mass/Vol] 3.0 g/dL Normal 1.4-4.0 [facility] Comment on above: Performed By: #### 1 9069326, 8604697, 47565267, 14785987, 9285671, 7757236, 0965542, 8781790 ####[facility] [address] [place] [address] Glucose [Mass/Vol] 102 mg/dL Normal 55-199 [facility] Comment on above: Performed By: #### 1 9557147, 0727548, 99305572, 01241077, 4274709, 2592322, 8514086, 9028368 ####[facility] [address] [place] [address] Potassium [Moles/Vol] 3.3 mmol/L Low 3.5-5.3 [facility] Comment on above: Performed By: #### 1 0154018, 8201568, 71391376, 58394587, 4415257, 2147102, 7424396, 8996711 ####[facility] [address] [place] [address] Protein [Mass/Vol] 6.4 g/dL Normal 6.0-7.8 [facility] Comment on above: Performed By: #### 1 3702671, 0428416, 76331451, 94731795, 2736930, 3903435, 1820602, 6770424 ####[facility] [address] [place] [address] Sodium [Moles/Vol] 138 mmol/L Normal 135-145 [facility] Comment on above: Performed By: #### 1 3684787, 0700970, 12025937, 03099266, 9144396, 1196012, 2985547, 4783037 ####[facility] [address] [place] [address] Urea nitrogen [Mass/Vol] 12 mg/dL Normal 5-21 [facility] Comment on above: Performed By: #### 1 5568706, 3575752, 71723312, 74277224, 0450206, 2492542, 1508414, 9380774 ####[facility] [address] [place] [address] CT Abdomen/Pelvis w/ Contras ton 11-04-2023 CT Abdomen/Pelvis w/ Contrast Exam Date/Time: 11/04/2023 18:58 EST Reason for Exam: LLQ abdominal pain;Other (please specify) Report IMPRESSION: There is mild nonspecific bowel thickening measuring up to 7 mm of the distal colon which may indicate nonspecific inflammation, colitis. Otherwise there are no acute intra-abdominal changes. EXAMINATION: CT Abdomen/Pelvis w/ Contrast HISTORY: LLQ abdominal pain TECHNIQUE: Contiguous axial CT sections of the abdomen and pelvis were obtained after IV contrast administration of 100 mL of Iopamidol, Isovue-300. Sagittal and coronal reformats have been obtained. All CT scans at this facility use dose modulation, iterative reconstruction, and/or weight based dosing when appropriate to reduce radiation dose to as low as reasonably achievable. COMPARISON: None FINDINGS Lung bases:There are patchy alveolar opacities in the left costophrenic recess. There are no pleural effusions. Liver: There is diffuse decreased attenuation of the liver consistent with fatty infiltration, steatosis. There are no focal solid or cystic lesions. There is no intra or extrahepatic bile duct dilatation. Gallbladder: No calcified gallstones. Normal gallbladder wall. No pericholecystic fluid. Spleen: There are no focal lesions or calcifications in the spleen. There is no splenomegaly Pancreas: The pancreas is normal in size and attenuation without focal lesions or dilatation of the pancreatic duct. Adrenal glands are negative. Kidneys: There are multiple low-density lesions in both kidneys consistent with cysts. There are no solid renal lesions. There are prompt bilateral nephrograms after IV contrast administration with prompt excretion into nondilated collecting systems. There is no hydroureter. Bowel: There are no distended loops of bowel. There is no CT evidence of appendicitis. Report There are diverticula of the descending sigmoid colon without surrounding inflammation. There is mild bowel wall thickening of the colon measuring up to 7 mm in the region of the sigmoid and rectum. There is no significant surrounding inflammation. Nodes: No lymphadenopathy. Aorta: There is no abdominal aortic aneurysm. Peritoneum: No free fluid or free air. Pelvis: Images limited due to metallic artifact from a right hip arthroplasty. The urinary bladder is within normal limits. Abdominal wall: The abdominal wall is intact. Bones :There are no acute osseous changes. Soft tissues: The soft tissues are unremarkable. Ordering Provider: Barbara Brand FINAL REPORT Dictated: 11/04/2023 7:52 pm Antony Addison MD, V. Signed (Electronic Signature): 11/04/2023 7:52 pm Signed by: Antony Addison MD, V. Transcribed by: BERNARD Technologist: MEHREEN Technical Comments GFR (mL/min/1/73m2) n/a age Contrast: Isovue 300 Contrast amount in ml's: 100 Normal [facility] Consent for Treatmenton 10-17 Consent for Treatment [id number] [facility] Discharge Instructionson Discharge Instructions [id number] Normal [facility] ED Clinical Summaryon 2022 ED Clinical Summary (Inserted Image. Perla ble to display) [address] [address] ED Clinical Summary Person Information Name: JAM TOSCANO David/New_Panda Age: 58 Years : 1965 Sex: Male Language: Israeli PCP: Jose L Lackey MD Marital Status: Single Visit Id: Visit Reason: Chills; Diarrhea; Nausea; N/D Speciality: Acuity: 3 Enc Type: Emergency Med Service: Emergency Arrival: 11/04/2023 17:35:01 Discharge: 11/04/2023 20:23:40 LOS: 000 02:48 Checkin: 11/04/2023 17:35:01 Checkout: 11/04/2023 20:23:40 Dispo Type: Home (Routine DC) EVENTS: Event Name Event Status Request Date/Time Start Date/Time Complete Date/Time Arrive Complete 11/04/2023 17:35:01 11/04/2023 17:35:01 11/04/2023 17:35:01 Document Home Meds Request 11/04/2023 17:35:01 Triage Complete 11/04/2023 17:35:01 11/04/2023 17:47:37 11/04/2023 17:47:37 Bed Assign Complete 11/04/2023 17:41:26 11/04/2023 17:41:26 11/04/2023 17:41:26 Dr Exam Complete 11/04/2023 17:41:26 11/04/2023 17:52:29 11/04/2023 17:52:29 RN Exam Complete 11/04/2023 17:41:26 11/04/2023 17:55:30 11/04/2023 17:55:30 Registration Complete 11/04/2023 17:52:29 11/04/2023 17:57:46 11/04/2023 17:57:46 Patient Care Complete 11/04/2023 17:57:00 11/04/2023 19:11:26 Pending Labs Complete 11/04/2023 17:57:00 11/04/2023 18:53:37 Lab Complete 11/04/2023 17:57:00 11/04/2023 18:53:37 EKG Complete 11/04/2023 17:57:00 11/04/2023 18:15:56 Urine Collect Complete 11/04/2023 17:57:00 11/04/2023 18:53:37 Reg Complete Request 11/04/2023 17:57:46 Reg Bed Request Complete 11/04/2023 17:57:46 11/04/2023 17:57:46 11/04/2023 17:57:46 Dr Exam Complete 11/04/2023 17:59:52 11/04/2023 17:59:52 11/04/2023 17:59:52 Registration Request 11/04/2023 17:59:52 Pending Labs Complete 11/04/2023 18:15:49 11/04/2023 18:15:49 11/04/2023 18:48:23 Lab Complete 11/04/2023 18:15:49 11/04/2023 18:15:49 11/04/2023 18:48:23 Pending Labs Complete 11/04/2023 18:19:10 11/04/2023 18:19:10 11/04/2023 18:19:17 Lab Complete 11/04/2023 18:19:10 11/04/2023 18:19:10 11/04/2023 18:19:17 Pending Labs Complete 11/04/2023 18:20:43 11/04/2023 18:20:43 11/04/2023 18:20:44 CT Complete 11/04/2023 18:21:52 11/04/2023 18:41:54 11/04/2023 18:58:50 Pending Labs Complete 11/04/2023 18:21:52 11/04/2023 19:05:22 Lab Complete 11/04/2023 18:21:52 11/04/2023 19:05:22 X-Ray Complete 11/04/2023 18:54:20 11/04/2023 18:55:30 11/04/2023 19:02:53 Wet Read Request 11/04/2023 19:02:53 Meds Admin Request 11/04/2023 19:10:46 Meds Admin Complete 11/04/2023 19:13:30 11/04/2023 19:22:18 Meds Admin Complete 11/04/2023 20:04:32 11/04/2023 20:20:54 Discharge Complete 11/04/2023 20:12:18 11/04/2023 20:23:46 11/04/2023 20:23:46 Transfer Complete 11/04/2023 20:23:46 11/04/2023 20:23:46 11/04/2023 20:23:46 ADDRESS: [address] [place] [address] [facility] [id number] PHYS DOC NOTES: MEDICAL INFORMATION: Prescriptions Given: New Medications [id number], [address] [place], [place] [id number], [phone] amoxicillin-clavulanate (Augmentin 875 mg oral tablet) 1 Tablets By Mouth every 12 hours for 10 Days. Refills: 0. Medications to Continue with No Changes Other Medications atorvastatin (atorvastatin 20 mg Tab) 1 Tablets By Mouth every day. dicyclomine (dicyclomine 10 mg Cap) 1 Capsules By Mouth 4 times a day. ezetimibe (Zetia 10 mg Tab) 1 Tablets By Mouth every day. folic acid (folic acid 1 mg Tab) 1 Tablets By Mouth every day. lisinopril (lisinopril 20 mg Tab) 1 Tablets By Mouth every day. mesalamine (mesalamine 4 g/60 mL rectal enema) 1 Each By rectum once a day (at bedtime). Refills: 3. multivitamin with minerals (Multivitamins and Minerals) 1 tab By Mouth every day. naproxen (naproxen 500 mg Tab) 1 Tablets By Mouth 2 times a day as needed for pain. Refills: 0. ondansetron (Zofran ODT 4 mg Tab-Dis) 1 Tablets By Mouth every 8 hours as needed Nausea/Vomiting. Refills: 0. tamsulosin (Flomax 0.4 mg Cap) 1 Capsules By Mouth every day. Refills: 0. Turmeric 400 Milligram By Mouth every day. PATIENT EDUCATION INFORMATION: Instructions: COVID-19; Colitis; Hypokalemia Follow up: With: Address: When: Jose L Lackey MD [address] [facility] [place] [address] In 3 days 11/07/2023 DIAGNOSIS: 1:COVID-19; 2:Hypokalemia; 3:Pneumonia due to COVID-19 virus; 4:Colitis; Pneumonia due to coronavirus disease 2019 Normal [facility] ED Patient Education Noteon 11-04-2023 ED Patient Education Note Gastroenterolo gy Colitis Colitis is a condition in which the colon is inflamed. It can cause diarrhea, blood in the stool, and abdominal pain. Colitis can last a short time (be acute), or it may last a long time (become chronic). What are the causes? This condition may be caused by: ? Infections from viruses or bacteria. ? A reaction to medicine. ? Certain autoimmune diseases, such as Crohn's disease or ulcerative colitis. ? Radiation treatment. ? Decreased blood flow to the bowel (ischemia). What are the signs or symptoms? Symptoms of this condition include: ? Diarrhea, blood in the stool, or black, tarry stool. ? Pain in the joints or abdominal pain. ? Fever or fatigue. ? Vomiting. ? Weight loss. ? Bloating. ? Having fewer bowel movements than usual. ? A strong and sudden urge to have a bowel movement. ? Feeling like the bowel is not empty after a bowel movement. How is this diagnosed? This condition may be diagnosed based on a stool test and a blood test. You may also have other tests, such as: ? X-rays. ? CT scan. ? Colonoscopy. ? Endoscopy. ? Biopsy. How is this treated? Treatment for this condition depends on the cause. This condition may be treated with: ? Steps to rest the bowel, such as not eating or drinking for a period of time. ? Fluids that are given through an IV. ? Medicine for pain and diarrhea. ? Antibiotic medicines. ? Cortisone medicines. ? Surgery. Follow these instructions at home: Eating and drinking ? Follow instructions from your health care provider about eating or drinking restrictions. ? Drink enough fluid to keep your urine pale yellow. ? Work with a dietitian to determine whether certain foods cause your condition to flare up. ? Avoid foods or drinks that cause flare-ups. ? Eat a well-balanced diet. General instructions ? If you were prescribed an antibiotic medicine, take it as told by your health care provider. Do not stop taking the antibiotic even if you start to feel better. ? Take gmqa-iyl-btytmea and prescription medicines only as told by your health care provider. ? Keep all follow-up visits. This is important. Contact a health care provider if: ? Your symptoms do not go away. ? You develop new symptoms. Get help right away if: ? You have a fever that does not go away with treatment. ? You develop chills. ? You have extreme weakness, fainting, or dehydration. ? You vomit repeatedly. ? You develop severe pain in your abdomen. ? You pass bloody or tarry stool. Summary ? Colitis is a condition in which the colon is inflamed. Colitis can last a short time (be acute), or it may last a long time (become chronic). ? Treatment for this condition depends on the cause and may include resting the bowel, taking medicines, or having surgery. ? If you were prescribed an antibiotic medicine, take it as told by your health care provider. Do not stop taking the antibiotic even if you start to feel better. ? Get help right away if you develop severe pain in your abdomen. ? Keep all follow-up visits. This is important. This information is not intended to replace advice given to you by your health care provider. Make sure you discuss any questions you have with your health care provider. Document Revised: 07/09/2021 Document Reviewed: 07/09/2021 [employer] Patient Education ? 2022 [employer] Hypokalemia Hypokalemia means that the amount of potassium in the blood is lower than normal. Potassium is a mineral (electrolyte) that helps regulate the amount of fluid in the body. It also stimulates muscle tightening (contraction) and helps nerves work properly. Normally, most of the body's potassium is inside cells, and only a very small amount is in the blood. Because the amount in the blood is so small, minor changes to potassium levels in the blood can be life-threatening. What are the causes? This condition may be caused by: ? Antibiotic medicine. ? Diarrhea or vomiting. Taking too much of a medicine that helps you have a bowel movement (laxative) can cause diarrhea and lead to hypokalemia. ? Chronic kidney disease (CKD). ? Medicines that help the body get rid of excess fluid (diuretics). ? Eating disorders, such as anorexia or bulimia. ? Low magnesium levels in the body. ? Sweating a lot. What are the signs or symptoms? Symptoms of this condition include: ? Weakness. ? Constipation. ? Fatigue. ? Muscle cramps. ? Mental confusion. ? Skipped heartbeats or irregular heartbeat (palpitations). ? Tingling or numbness. How is this diagnosed? This condition is diagnosed with a blood test. How is this treated? This condition may be treated by: ? Taking potassium supplements. ? Adjusting the medicines that you take. ? Eating more foods that contain a lot of potassium. If your potassium level is very low, you may need to get potassium through an (more content not included)... Normal [facility] ED Patient Summaryon 023 ED Patient Summary (Inserted Image. Perla ble to display) [address] [address] Patient Discharge Instructions Person Information Name: JAM TOSCANO Age: 58 Years Arrival Date: 11/04/2023 17:35:01 Discharge Diagnosis: 1:COVID-19; 2:Hypokalemia; 3:Pneumonia due to COVID-19 virus; 4:Colitis; Pneumonia due to coronavirus disease 2018 Primary Care Physician: Jose L Lackey MD Provider Information Primary Provider: Kavon Johnson DO Advanced Interim Controller:None The exam and treatment you received in the Emergency Department were for an urgent problem and are not intended as complete care. It is important that you follow up with a doctor, nurse practitioner, or physician?s captain assistant for ongoing care. If your symptoms become worse or you do not improve as expected and you are unable to reach your usual health care provider, you should return to the Emergency Department. We are available 24 hours a day. JAM TOSCANO has been given the following list of patient education materials, prescriptions and follow-up instructions: Follow-up Instructions: With: Address: When: Jose L Lackey MD [address] [place] [id number] In 3 days 11/07/2023 In the event that this physician does not participate in your insurance network, please consult with your insurance company to find a nearby participating provider. Patient Education Materials: COVID-19; Colitis; Hypokalemia A MESSAGE TO ALL PATIENTS REGARDING OPIOIDS PRESCRIPTION OPIOIDS: WHAT YOU NEED TO KNOW Prescription opioids can be used to help relieve lvtsxwpx-fb-hyqcue pain and are often prescribed following a surgery or injury, or for certain health conditions. These medications can be an important part of the treatment but also come with serious risks. It is important to work with your healthcare provider to make sure you are getting the safest, most effective care. WHAT ARE THE RISKS AND SIDE EFFECTS OF OPIOID USE? Prescription opioids carry serious risks of addiction and overdose, especially with prolonged use. An opioid overdose, often marked by slowed breathing, can cause sudden . The use of prescription opioids can have a number of side effects as well, even when taken as directed: ? Tolerance?meaning you might need to take more of the medication for the same pain relief ? Physical dependence?meaning you have symptoms of withdrawal when a medication is stopped ? Increased sensitivity to pain ? Constipation ? Nausea, vomiting, and dry mouth ? Sleepiness and dizziness ? Confusion ? Depression ? Low levels of testosterone that can result in lower sex drive, energy, and strength ? Itching and sweating RISKS ARE GREATER WITH: ? History of drug misuse, substance use disorder, or overdose ? Mental health conditions (such as depression or anxiety) ? Sleep apnea ? Older age (65 years and older) ? Avoid alcohol while taking prescription opioids. Also, unless specifically advised by your health care provider, medications to avoid include: ? Benzodiazepines (such as Xanax or Valium) ? Muscle relaxants (such as Soma or Flexeril) ? Hypnotics (such as Ambien or Lunesta) ? Other prescription opioids KNOW YOUR OPTIONS Talk to your health care provider about ways to manage your pain that don?t involve prescription opioids. Some of these options may actually work better and have fewer risks and side effects. Options may include: ? Pain relievers such as acetaminophen, ibuprofen, and naproxen ? Some medication that are also used for depression or seizures ? Physical therapy and exercise ? Cognitive behavioral therapy, a psychological, goal-directed approach, in which patients learn how to modify physical, behavioral, and emotional triggers of pain and stress. IF YOU ARE PRESCRIBED OPIOIDS FOR PAIN: ? Never take opioids in greater amounts or more often than prescribed. ? Follow up with your primary health care provider. o Work together to create a plan on how to manage your pain. o Talk about ways to help manage your pain that don?t involve prescription opioids. o Talk about any and all concerns and side effects. ? Help prevent misuse and abuse o Never sell or share prescription opioids. o Never use another person?s prescription opioids. ? Store prescription opioids in a secure place and out of reach of others (this may include visitors, children, friends, and family). ? Safely dispose of unused prescription opioids: Find your community drug take-back program or your pharmacy mail-back program, or flush them down the toilet, following guidance from the Food and Drug Administration (www.fda.gov/Drugs/Resour cesForYou). ? Visit www.cdc.gov/drugoverdose to learn about the risks of opioids abuse and overdose. ? If you believe you may be struggling with addiction, tell your health day care teacher and as (more content not included)... Normal [facility] Lactic Acidon 11-04-2023 Lactic Acid Lvl 1.0 mmol/L Normal 0.5-2.2 [facility] Comment on above: Performed By: #### 1 [id number], 6213327, 30296128, 73147531, 8988397, 1936970, 5032187, 7571959 ####[facility] [address] [place] [address] Magnesiumon 11-04-2023 Magnesium [Mass/Vol] 1.4 mg/dL Normal 1.3-2.4 [facility] Comment on above: Performed By: #### 1 5890662, 6564867, 09553050, 88647379, 7037146, 6634254, 0949280, 0991300 ####[facility] [address] [place] [address] PT & PTTon 11-04-2023 aPTT Coag (PPP) [Time] 34.0 second(s) Normal 25.1-36.5 [facility] Comment on above: Result Comment: Para meter 15 days - 4 weeks 1 - 5 months 6 - 11 months 1 - 5 years 6 - 10 years 11 - 17 years PTT Mean: 35.4 (27.6-45.6) Mean: 33.5 (24.8-40.7) Mean: 32.4 (25.1-40.7) Mean: 31.6 (24.0-39.2) Mean: 31.6 (26.9-38.7) Mean: 31.0 (24.6-38.4) Pediatric Reference ranges were obtained from a study by Jono Vasquez et al. prepared from 1437 samples obtained at 7 different centers using the same coagulation reagent and instrumentation as [facility]. Currently there are no coagulation studies available worldwide for children to 14 days, and no normal ranges. Heparin therapeutic range (represented by Anti-Factor Xa activity of 0.2 - 0.4 U/mL) corresponds to PTT of 56.6 - 109.0 sec. Performed By: #### 1 [id number], 0053631, 01333044, 32218685, 9226492, 9455933, 4080762, 8987049 ####[facility] [address] [place] [address] INR Coag (PPP) [Relative time] 1.2 {INR} Invalid Interpretation Code [facility] Comment on above: Result Comment: INR results are specifically intended to assess patients stabilized on long-term Anticoagulation therapy suggested INR?s ?Less Intensive Anticoagulation? 2.0 ? 3.0 Conventional Range 3.0 ? 4.5 Performed By: #### 1 3641826, 4561953, 87284876, 60480777, 6446514, 3432206, 1152563, 2251384 ####[facility] [address] [place] [address] PT Coag (PPP) [Time] 13.7 second(s) High 9.4-12.5 [facility] Comment on above: Result Comment: 15 d ays - 4 weeks 1 - 5 months 6 -11 months 1 ? 5 years 6 ? 10 years 11 -17 years Mean: 11.2 (9.5 ? 12.6) Mean: 11.0 (9.7 ? 12.8) Mean: 11.0 (9.8 ? 13.0) Mean: 11.3 (9.9 ? 13.4) Mean: 11.7 (10.0 ? 14.6) Mean: 11.8 (10.0 - 14.1) Pediatric Reference ranges were obtained from a study by Jono Vasquez et al. prepared from 1437 samples obtained at 7 different centers using the same coagulation reagent and instrumentation as [facility]. Currently there are no coagulation studies available worldwide for children to 14 days, and no normal ranges. Performed By: #### 1 [id number], 0706618, 45092460, 61236637, 9665734, 8469345, 2474694, 4439472 ####[facility] [address] [place] [address] Rapid COVID Antigen ([facility])on 11-04-2023 Rapid COV Int NEG Ctl Pass Normal [facility] Comment on above: Performed By: #### 2 [id number] ####[address] [place] [address] Rapid COV Int POS Ctl Pass Normal [facility] Comment on above: Performed By: #### 2 [id number] ####[address] [place] [address] SARS-CoV+SARS-CoV-2 (COVID-19) Ag IA.rapid Ql (Resp) Detected Abnormal Not Detected [facility] Comment on above: Result Comment: The [employer] Spineitor? System for Rapid Detection of SARS-CoV-2 is a chromatographic digital immunoassay intended for the direct and qualitative detection of SARS-CoV-2 nucleocapsid antigens in nasal swabs from individuals who are suspected of COVID-19 by their healthcare provider within the first five days of the onset of symptoms. Negative results should be treated as presumptive, do not rule out SARS-CoV-2 infection and should not be used as the sole basis for treatment or patient management decisions, including infection control decisions. Negative results should be considered in the context of a patient?s recent exposures, history and the presence of clinical signs and symptoms consistent with COVID-19, and confirmed with a molecular assay, if necessary, for patient management. For in vitro diagnostic use. In the [place], only for use under an Emergency Use Authorization. In the [place], this test has not been FDA cleared or approved; this test has been authorized by FDA under an EUA for use by authorized laboratories; use by laboratories certified under the CLIA, 42 U.S.C. ?263a, that meet requirements to perform moderate, high, or waived complexity tests and at the Point of Care (POC), i.e., in patient care settings operating under a CLIA Certificate of Waiver, Certificate of Compliance, or Certificate of Accreditation. This test has been authorized only for the detection of proteins from SARS-CoV-2, not for any other viruses or pathogens; and, in the [place], this test is only authorized for the duration of the declaration that circumstances exist justifying the authorization of emergency use of in vitro diagnostics for detection and/or diagnosis of the virus that causes COVID-19 under Section 564(b)(1) of the Act, 21 U.S.C. ? 360bbb-3(b)(1), unless the authorization is terminated or revoked sooner. Performed By: #### 2 [id number] ####[facility] [address] [place] [address] Reportability Response - Pub lic Healthon 11-04-2023 Reportability Response - Public Health {[id number]}X ML Normal [facility] Troponin 0 Hr.on 11-04-2023 Troponin 9.30 pg/mL Low 15.90-38.4 0 [facility] Comment on above: Result Comment: The 95% CI (Confidence Interval) PPV (Positive Predictive Value) for myocardial infarction in females is 38 pg/mL, in males 51 pg/mL. The results should be used in conjunction with clinical conditions of myocardial infarction. (Access High Sensitivity Troponin I Instructions For Use, Missael Suraj, June 2018) Performed By: #### 1 [id number], 4530965, 53911330, 20292044, 5595518, 9798831, 2420560, 0067676 ####[facility] [address] [place] [address] UA With Cult Reflexon 2022 Bacteria LM Ql (Urine sed) 1+ /HPF Abnormal Trace [facility] Comment on above: Performed By: #### 1 8332269 ####[facility] [address] [place] [address] Bilirubin Ql (U) Negative Normal Negative [facility] Comment on above: Performed By: #### 1 8182300 ####[facility] [address] [place] [address] Clarity (U) CLOUDY Abnormal Clear [facility] Comment on above: Performed By: #### 1 2354021 ####[address] [address] Color (U) YELLOW Normal Yellow [facility] Comment on above: Performed By: #### 1 8369809 ####[facility] [address] [place] [address] Crystals LM Ql (Urine sed) Present Normal [facility] Comment on above: Performed By: #### 1 0235691 ####[address] [address] Epithelial cells.squamous LM.HPF (Urine sed) [#/Area] 0-2 Normal 0-2 [facility] Comment on above: Performed By: #### 1 0283077 ####[facility] [address] [place] [address] Glucose Test strip (U) [Mass/Vol] Negative Normal Negative [facility] Comment on above: Performed By: #### 1 3520363 ####[address] [address] Hemoglobin Ql (U) 3+ Abnormal Negative [facility] Comment on above: Performed By: #### 1 2597010 ####[facility] [address] [place] [address] Ketones (U) [Mass/Vol] Negative Normal Negative [facility] Comment on above: Performed By: #### 1 3358859 ####[address] [address] Weingarten.plasma/Weingarten.RB C (Bld) [Mass ratio] 21-30 Abnormal 0-3 [facility] Comment on above: Performed By: #### 1 7726800 ####[address] [address] Nitrite Ql (U) Negative Normal Negative [facility] Comment on above: Performed By: #### 1 8772366 ####[address] pH (U) 7.0 [pH] Invalid Interpretation Code 5.0-9.0 [facility] Comment on above: Performed By: #### 1 8131683 ####[address] Protein (U) [Mass/Vol] 1+ Abnormal Negative Fi [facility] Comment on above: Performed By: #### 1 5528467 ####[address] Specific gravity (U) [Rel density] 1.020 Invalid Interpretation Code 1.005-1.03 0 [facility] Comment on above: Performed By: #### 1 7890212 ####[address] Type of Urine collection method Clean Catch Normal [facility] Comment on above: Performed By: #### 1 6425042 ####[address] [address] Urobilinogen Qn (U) 0.2 {Rosina'U}/dL Normal 0.0-1.0 [facility] Comment on above: Performed By: #### 1 9765100 ####[address] [address] WBC Auto Ql (U) Negative Normal Negative [facility] Comment on above: Performed By: #### 1 9483868 ####[address] [address] WBC casts LM.LPF (Urine sed) [#/Area] 0-3 Normal [facility] Comment on above: Performed By: #### 1 2188685 ####[address] [address] WBC LM.HPF (Urine sed) [#/Area] 0-5 Normal 0-5 [facility] Comment on above: Performed By: #### 1 3407210 ####[facility] [address] [place] [address] XR Chest Single Viewon 11-04 XR Chest Single View Exam Date/Time: 11/04/2023 19:02 EST Reason for Exam: Chest pain Report IMPRESSION: Right mid lung consolidation, pneumonia. CLINICAL HISTORY: Chest pain EXAMINATION: XR Chest Single View COMPARISON: FINDINGS: The cardiac silhouette is enlarged. There is a consolidation midportion of the right lung. There are severe degenerative changes of both shoulders. Ordering Provider: Barbara Brand FINAL REPORT Dictated: 11/04/2023 7:58 pm Antony Addison MD, V. Signed (Electronic Signature): 11/04/2023 7:58 pm Signed by: Antony Addison MD, V. Transcribed by: BERNARD Technologist: NICKOLAS Technical Comments Radiation Dose: Kittyandrez in mGy = na DAP = na Normal [facility] eGFRon 11-04-2023 GFR/1.73 sq M.predicted among non-blacks MDRD (S/P/Bld) [Vol rate/Area] mL/min/{1.73_m2} Normal >=59 [facility] Comment on above: Order Comment: Order added by Discern Expert. Performed By: #### 1 1226820, 3795493, 18365369, 32152330, 5076790, 5666526, 2472859, 6796254 ####[facility] [address] [place] [address] Auto Diffon 10-23-2023 Basophils/100 WBC (Bld) 0.2 % Normal 0.0-2.0 [facility] Comment on above: Order Comment: Order Added by Discern Expert. Performed By: #### 2 412908, 8272808, 2163927, 0772977, 18998549, 6012938 #### [facility] [address] [place] [address] Basophils/Leukocytes Auto (Bld) [Pure # fraction] 0.0 E9/L Normal 0.0-0.2 [facility] Comment on above: Order Comment: Order Added by Discern Expert. Performed By: #### 2 967481, 0243022, 7493911, 7401644, 84501386, 4202240 #### [facility] [address] [place] [address] Eosinophils/100 WBC (Bld) 0.0 % Normal 0.0-8.0 [facility] Comment on above: Order Comment: Order Added by Discern Expert. Performed By: #### 2 716850, 7737034, 2048994, 3301177, 94154263, 9959249 #### [facility] [address] [place] [address] Eosinophils/Leukocytes Auto (Bld) [Pure # fraction] 0.0 E9/L Normal 0.0-0.5 [facility] Comment on above: Order Comment: Order Added by Discern Expert. Performed By: #### 2 364593, 9146288, 3712166, 2778534, 72535922, 5791083 #### [facility] [address] [place] [address] Lymphocytes/100 WBC (Bld) 7.8 % Low 14.0-50.0 [facility] Comment on above: Order Comment: Order Added by Discern Expert. Performed By: #### 2 164197, 1679151, 9423114, 9292416, 14616694, 3878802 #### [facility] [address] [place] [address] Lymphocytes/Leukocytes Auto (Bld) [Pure # fraction] 0.8 E9/L Low 1.0-4.0 [facility] Comment on above: Order Comment: Order Added by Jose Expert. Performed By: #### 2 577260, 8412638, 7984008, 1130495, 44338536, 1209166 #### [facility] [address] [place] [address] Monocytes/100 WBC (Bld) 1.6 % Low 4.0-14.0 [facility] Comment on above: Order Comment: Order Added by Discern Expert. Performed By: #### 2 255307, 1038415, 0449223, 8709080, 05477183, 1966452 #### [facility] [address] [place] [address] Monocytes/Leukocytes Auto (Bld) [Pure # fraction] 0.2 E9/L Normal 0.2-1.0 [facility] Comment on above: Order Comment: Order Added by Discern Expert. Performed By: #### 2 967629, 9012542, 8641868, 6566244, 59426424, 3259535 #### [facility] [address] [place] [address] Neutrophils/100 WBC (Bld) 90.4 % High 36.0-75.0 [facility] Comment on above: Order Comment: Order Added by Jose Expert. Performed By: #### 2 403879, 6757232, 5038401, 7013205, 09453537, 9776617 #### [facility] [address] [place] [address] Neutrophils/Leukocytes Auto (Bld) [Pure # fraction] 8.9 E9/L High 2.0-7.5 [facility] Comment on above: Order Comment: Order Added by Jose Expert. Performed By: #### 2 478674, 7129023, 4951282, 5244653, 25881780, 9385349 #### [facility] [address] [place] [address] BMPon 10-23-2023 Creatinine [Mass/Vol] 0.8 mg/dL Normal 0.5-1.3 [facility] Comment on above: Performed By: #### 2 962344, 3696237, 2675350, 1193492, 53754221, 5780011 ####[facility] [address] [place] [address] Urea nitrogen [Mass/Vol] 12 mg/dL Normal 5-21 [facility] Comment on above: Performed By: #### 2 485810, 3054923, 1664718, 2308602, 19461411, 1012016 ####[facility] [address] [place] [address] Urea nitrogen/Creatinine [Mass ratio] 15 No Units Normal 10-20 [facility] Comment on above: Performed By: #### 2 731888, 2749326, 3237230, 1146155, 94325833, 4939521 ####[facility] [address] [place] [address] Anion gap [Moles/Vol] 11 mmol/L Normal 6-16 [facility] Comment on above: Performed By: #### 2 792012, 2551858, 7449911, 6175009, 16733182, 7331310 ####[facility] [address] [place] [address] Calcium [Mass/Vol] 9.5 mg/dL Normal 8.9-11.1 [facility] Comment on above: Performed By: #### 2 744022, 2063044, 7533495, 4590674, 09504491, 4174782 ####[facility] [address] [place] [address] Chloride [Moles/Vol] 110 mmol/L Normal 101-111 [facility] Comment on above: Performed By: #### 2 076410, 3717586, 0014327, 3063408, 71891986, 7172241 ####[facility] [address] [place] [address] CO2 [Moles/Vol] 22 mmol/L Normal 21-31 [facility] Comment on above: Performed By: #### 2 743140, 3147640, 6322890, 1868789, 64997659, 8568536 ####[facility] [address] [place] [address] Glucose [Mass/Vol] 149 mg/dL Normal 55-199 [facility] Comment on above: Result Comment: If t his glucose result represents a fasting glucose, interpretation should refer to the following reference range: 55-99 mg/dL Performed By: #### 2 855166, 2541360, 4358699, 4801882, 51836690, 5259859 ####[facility] [address] [place] [address] Potassium [Moles/Vol] 3.4 mmol/L Low 3.5-5.3 [facility] Comment on above: Performed By: #### 2 883775, 0636693, 2709834, 9109726, 55586029, 1118416 ####[facility] [address] [place] [address] Sodium [Moles/Vol] 140 mmol/L Normal 135-145 [facility] Comment on above: Performed By: #### 2 667592, 8464845, 2149476, 8186425, 04577501, 8233624 ####[facility] [address] [place] [address] CBC w/ Auto Diffon Erythrocyte distribution width (RBC) [Ratio] 13.7 % Normal 10.9-14.2 [facility] Comment on above: Performed By: #### 2 [id number], [id number], [id number], [id number], [id number], [id number] #### [facility] [address] [place] [address] Hematocrit (Bld) [Volume fraction] 38.3 % Normal 37.7-49.0 [facility] Comment on above: Performed By: #### 2 [id number], [id number], 3843629, 2379660, [id number], 1640248 #### [facility] [address] [place] [address] Hemoglobin (Bld) [Mass/Vol] 12.9 g/dL Low 13.5-17.5 [facility] Comment on above: Performed By: #### 2 832304, 7697350, 3984772, 5001600, [id number], [id number] #### [facility] [address] [place] [address] MCH (RBC) [Entitic mass] 30.4 pg Normal 27.0-34.0 [facility] Comment on above: Performed By: #### 2 306858, 6529125, 0986495, 9827859, [id number], [id number] #### [facility] [address] [place] [address] MCHC (RBC) [Mass/Vol] 33.7 g/dL Normal 31.4-36.0 [facility] Comment on above: Performed By: #### 2 977917, 1617496, 1396740, 1099766, 77855772, [id number] #### [facility] [address] [place] [address] MCV (RBC) [Entitic vol] 90.2 fL Normal 80.0-100.0 [facility] Comment on above: Performed By: #### 2 664553, 7543189, 9008759, 7146720, 74729030, 2622081 #### [facility] [address] [place], [place] [id number] Platelet mean volume (Bld) [Entitic vol] 6.1 fL Low 6.4-10.8 [facility] Comment on above: Performed By: #### 2 773254, 1529578, 3279679, 5412578, [id number], 6563987 #### [facility] [address] [place] [address] Platelets (Bld) [#/Vol] 483.0 E9/L Normal 150. 0-500. 0 [facility] Comment on above: Performed By: #### 2 056458, 2895333, 4209746, 1665561, 33131385, 6224998 #### [facility] [address] [place] [address] RBC (Bld) [#/Vol] 4.2 E12/L Low 4.3-5.9 [facility] Comment on above: Performed By: #### 2 467673, 8721972, 8445927, 2689213, 62122750, 4398709 #### [facility] [address] [place] [address] WBC corrected for nucl RBC Auto (Bld) [#/Vol] 9.8 E9/L Normal 4.0-11.0 [facility] Comment on above: Performed By: #### 2 424207, 3942665, 8436523, 4810754, 75114020, 2952527 #### [facility] [address] [place] [address] CT Abdomen/Pelvis w/o Contra brigido 10-23-2023 CT Abdomen/Pelvis w/o Contrast Exam Date/Time: 10/23/2023 14:49 EST Reason for Exam: Abdominal/flank pain, stone suspected;Other (please specify) Report IMPRESSION: MINIMALLY OBSTRUCTING APPROXIMATELY 5 TO 6 MM PROXIMAL LEFT URETERAL CALCULUS. APPROXIMATELY 4 TO 5 MM NONOBSTRUCTING RIGHT LOWER POLE RENAL CALCULUS AND SMALL RENAL CYSTS. OTHER CHRONIC FINDINGS, NOTED. CLINICAL HISTORY: Abdominal/flank pain, stone suspected. COMPARISON: None available. TECHNIQUE: Spiral unenhanced images were obtained of the abdomen and pelvis without contrast. All CT scans at this facility use dose modulation, iterative reconstruction, and/or weight based dosing when appropriate to reduce radiation dose to as low as reasonably achievable. FINDINGS: Liver: Unremarkable. No mass or lesion identified without contrast. Biliary: The gallbladder is unremarkable. No bile duct dilation. Pancreas: Fatty replaced Caty dystrophic. No mass or duct dilation identified without contrast. Spleen: Not enlarged. No mass identified without contrast. Adrenals: Unremarkable. Kidneys: Approximately 5 to 6 mm proximal left ureteral calculus with minimal left hydronephrosis. Approximately 4 to 5 mm nonobstructing right lower pole renal calculus A few to approximately 1.7 cm predominantly exophytic fluid density cysts, which do not require further imaging follow-up. GI tract: No abnormal dilation or abnormal wall thickening. Minimal diverticulosis. Normal appendix. Lymph nodes: No pathologically enlarged lymph nodes. Mesentery/peritoneum: No organized fluid collection, ascites, focal inflammatory changes, or mass. Retroperitoneum: No organized fluid collection, focal inflammatory changes or mass. Vasculature: No aneurysm. Mild to moderate atherosclerotic plaquing. Pelvis: No mass, organized fluid collection, or ascites. The urinary bladder is unremarkable Bones/soft tissue: No acute osseous findings identified. Mild to moderate degenerative changes, predominantly L3-4. Small fat-containing inguinal hernias. The visualized aspect of a total right hip arthroplasty is unremarkable. Lower thorax: Noncontributory. Report Ordering Provider: Santos Joe FINAL REPORT Dictated: 10/23/2023 3:26 pm Maurice Zimmerman MD Signed (Electronic Signature): 10/23/2023 3:26 pm Signed by: Maurice Zimmerman MD Transcribed by: BERNARD Technologist: STEPHEN Technical Comments Rectal Contrast Given? No Oral contrast amount in ml's: 0 Normal [facility] Consent for Treatmenton Consent for Treatment [id number] Normal [facility] Discharge Instructionson Discharge Instructions [id number] Normal [facility] ED Clinical Summaryon 2022 ED Clinical Summary (Inserted Image. Perla ble to display) [place] [id number] ED Clinical Summary Person Information Name: JAM TOSCANO [facility] Age: 58 Years : 1965 Sex: Male Language: Israeli PCP: Jose L Lackey MD Marital Status: Single Visit Id: Visit Reason: Abdominal pain; ABDOMINAL PAIN Speciality: Acuity: 3 Enc Type: Emergency Med Service: Emergency Arrival: 10/23/2023 13:30:39 Discharge: 10/23/2023 15:54:15 LOS: 000 02:24 Checkin: 10/23/2023 13:30:39 Checkout: 10/23/2023 15:54:15 Dispo Type: Home (Routine DC) EVENTS: Event Name Event Status Request Date/Time Start Date/Time Complete Date/Time Arrive Complete 10/23/2023 13:30:39 10/23/2023 13:30:39 10/23/2023 13:30:39 Document Home Meds Request 10/23/2023 13:30:39 Triage Complete 10/23/2023 13:30:39 10/23/2023 13:41:54 10/23/2023 13:41:54 Registration Complete 10/23/2023 13:35:40 10/23/2023 13:35:40 10/23/2023 13:35:40 Reg Complete Request 10/23/2023 13:35:40 Reg Bed Request Complete 10/23/2023 13:35:40 10/23/2023 13:35:40 10/23/2023 13:35:40 Pending Labs Complete 10/23/2023 13:55:47 10/23/2023 15:09:01 Lab Complete 10/23/2023 13:55:47 10/23/2023 15:09:01 Urine Collect Complete 10/23/2023 13:55:47 10/23/2023 15:09:01 Bed Assign Complete 10/23/2023 14:03:00 10/23/2023 14:03:00 10/23/2023 14:03:00 Dr Exam Complete 10/23/2023 14:03:00 10/23/2023 14:03:38 10/23/2023 14:03:38 RN Exam Request 10/23/2023 14:03:00 Registration Request 10/23/2023 14:03:38 Dr Exam Complete 10/23/2023 14:03:51 10/23/2023 14:03:51 10/23/2023 14:03:51 Pending Labs Complete 10/23/2023 14:17:29 10/23/2023 14:17:29 10/23/2023 14:53:20 Lab Complete 10/23/2023 14:17:29 10/23/2023 14:17:29 10/23/2023 14:53:20 Pending Labs Complete 10/23/2023 14:25:01 10/23/2023 14:25:01 10/23/2023 14:25:08 Lab Complete 10/23/2023 14:25:01 10/23/2023 14:25:01 10/23/2023 14:25:08 Meds Admin Complete 10/23/2023 14:30:24 10/23/2023 14:52:27 CT Complete 10/23/2023 14:37:05 10/23/2023 14:37:38 10/23/2023 14:49:03 Pending Labs Complete 10/23/2023 14:47:48 10/23/2023 14:47:48 10/23/2023 14:47:49 Patient Care Request 10/23/2023 15:33:26 Discharge Complete 10/23/2023 15:34:15 10/23/2023 15:54:39 10/23/2023 15:54:39 Pending Labs Complete 10/23/2023 15:36:12 10/23/2023 15:36:12 10/23/2023 15:36:13 Transfer Complete 10/23/2023 15:54:39 10/23/2023 15:54:39 10/23/2023 15:54:39 ADDRESS: [address] [place] [address] [facility] [id number] PHYS DOC NOTES: MEDICAL INFORMATION: Prescriptions Given: New Medications [facility]/pharmacy #[id number], [address] [place], [place] [phone], [phone] acetaminophen-oxycodone (acetaminophen-oxycodone 325 mg-5 mg Tab) 1 Tablets By Mouth every 6 hours as needed for pain for 3 Days. Refills: 0. naproxen (naproxen 500 mg Tab) 1 Tablets By Mouth 2 times a day as needed for pain. Refills: 0. tamsulosin (Flomax 0.4 mg Cap) 1 Capsules By Mouth every day. Refills: 0. Medications to Continue Taking That Have Changed [facility]/pharmacy #[id number], [address], [place] [phone], [phone] START: ondansetron (Zofran ODT 4 mg Tab-Dis) 1 Tablets By Mouth every 8 hours as needed Nausea/Vomiting. Refills: 0. Other Medications START: ondansetron (ondansetron 4 mg Tab) 20 EA, TAKE 1 TABLET BY MOUTH EVERY 6 HOURS NEEDED FOR NAUSEA AND VOMITING. Medications to Continue with No Changes Other Medications adalimumab (Humira Pen 40 mg/0.4 mL subcutaneous kit) 1 pen Subcutaneous every other week. Refills: 5. adalimumab (Humira Pen Crohns/Ulcer Colitis/Hidradenitis Suppurativa Starterr Pack 80 mg/0.8 mL subcutaneous ki) Inject 160 mg on day one, Inject 80 mg on day 15. Refills: 0. atorvastatin (atorvastatin 20 mg Tab) 1 Tablets By Mouth every day. cholecalciferol (cholecalciferol 5000 intl units oral capsule) By Mouth every day. dicyclomine (dicyclomine 10 mg Cap) 1 Capsules By Mouth 4 times a day. ezetimibe (Zetia 10 mg Tab) 1 Tablets By Mouth every day. folic acid (folic acid 1 mg Tab) 1 Tablets By Mouth every day. lisinopril (lisinopril 20 mg Tab) 1 Tablets By Mouth every day. mesalamine (mesalamine 4 g/60 mL rectal enema) 1 Each By rectum once a day (at bedtime). Refills: 3. mesalamine (mesalamine 4 g/60 mL rectal enema) 1 Each By rectum once a day (at bedtime). Refills: 6. multivitamin with minerals (Multivitamins and Minerals) 1 tab By Mouth every day. omeprazole (omeprazole 40 mg Cap-DR) 1 Capsules By Mouth every day. Refills: 11. sulfasalazine (sulfasalazine 500 mg oral enteric coated tablet) 2 Tablets By Mouth 4 times a day for 30 Days. Refills: 11. Turmeric 400 Milligram By Mouth every day. vedolizumab (Entyvio 300 mg intravenous injection) 300 mg/kg at week 0, 2 & 6 then 300 mg/kg every 8 weeks. Refills: 6. PATIENT EDUCATION INFORMATION: Instructions: Kidney Stones Follow up: With: Address: When: Otilia Claribelpilar [address] [place] [phone] Business (1) In 3 days (more content not included)... Normal [facility] ED Note-Physicianon 10-23-20 ED Note-Physician Basic Information Time Seen: Heath MORELOS, Santos Bishop. 10/23/2023 14:03 Chief Complaint hx of cholytis and kidney stones. pain for a week History of Present Illness A 58-year-old male reports emergency department with chief complaint of some left-sided flank pain. He reports he does have a history of colitis as well as kidney stones, along get checked out. He reports he does have some nausea, as well as been having diarrhea. States he does have a history of UC. He reports that he is on Entyvio. He reports that he is also not having any urinary symptoms. Denies any blood in his stool. Reports he does follow-up with GI. Wanting it checked out. Denies any fevers chills chest pain or shortness of breath. Review of Systems A 10 point review of systems is negative except as noted above. Medical and Surgical History: Reviewed and noted Social history: Lives at home Family History: Reviewed. Tobacco: Denies, former Physical Exam Vitals & Measurements T: 36.8 ?C(Oral) HR: 98(Peripheral) RR: 16 BP: 154/89 SpO2: 97% HT: 168 cm WT: 75.1 kg BMI: 26.61 General: The patient appears well and in no apparent distress. Patient is resting comfortably on bed. Afebrile Skin: Warm, dry, no pallor noted. Head: Normocephalic, atraumatic Neck: No JVD Eye: PERRLA, EOMI ENT: Moist mucus membranes Cardiovascular: Regular rate normal peripheral perfusion. Radial pulses +2 bilaterally Respiratory: No respiratory distress no accessory muscle use no obvious audible wheezing Chest Wall: no deformity Musculoskeletal: normal ROM, no deformity, no swelling GI: No obvious distention soft mild tenderness of left lower quadrant, and extends in the left flank. Positive for left-sided CVA tenderness. No real tenderness or guarding noted elsewhere. Neurological: A&O moves all extremities equal strength and symmetry Psychiatric: Cooperative and appropriate Medical Decision Making MEDICAL DECISION MAKING Number and Complexity of Problems Differential Diagnosis: [] [facility] Data External documents reviewed: [] My EKG interpretation: [] My CT interpretation: Reviewed My X-ray interpretation: [] My Ultrasound interpretation: [] Decision rules/scores evaluated: [] Discussed with: [] Treatment and Disposition ED Course: A 58-year-old male reports to the emergency department chief complaint of left-sided abdominal/flank pain. Reports he does have a history of kidney stone as well as colitis. Wanted checked out. Reports nausea, as well as diarrhea. He states that he has not had any fevers chills chest pain or shortness of breath. Reports history of UC. Due to concerns, we did do lab work on the patient, as well as a CT. Physical exam was positive for left-sided flank pain. Nontoxic-appearing otherwise. Lab work reviewed and noted. No acute changes. Urine was positive for blood in the urine, but no signs of UTI. CT of the abdomen showed a minimally obstructing approximately 5 to 6 mm proximal left ureteral calculus. Discussed this with the patient. Patient was figured with that this was going on. Due to symptoms, patient will be started on a urine strainer at home, as well as started on Flomax, Zofran, naproxen, and Percocet for breakthrough pain. Discussed follow-up with urology. Discussed return precautions. Follow-up with your primary care provider in 3 to 5 days. If symptoms worsen, do not improve, or new symptoms arise please report back to emergency department for further evaluation. The patient was understanding and agreeable to plan moving forward. Shared decision making: [] Code status: [] Assessment/Plan Kidney stone on left side (N20.0: Calculus of kidney) Orders: acetaminophen-oxycodone, 1 tab(s), Oral, q6hr for pain for 3 day(s), 12 tab(s), Refill(s) 0, [id number], 168, cm, 10/23/23 13:41:00 EST, Height/Length Dosing, 75.1, kg, 10/23/23 13:41:00 EST, Weight Dosing ketorolac, 30 mg = 1 mL, Injection, IV Push, Once, Stop date 10/23/23 14:29:00 EST, STAT, Start date 10/23/23 14:29:00 EST, 10/23/23 14:29:00 EST naproxen, 500 mg = 1 tab(s), Oral, BID, PRN for pain, # 20 tab(s), Refills(s) 0, Pharmacy: [facility]/pharmacy #[id number], 168, cm, 10/23/23 13:41:00 EST, Height/Length Dosing, 75.1, kg, 10/23/23 13:41:00 EST, Weight Dosing ondansetron, 4 mg = 2 mL, Injection, IV Push, Once, Stop date 10/23/23 14:30:00 EST, STAT, Start date 10/23/23 14:30:00 EST, 10/23/23 14:30:00 EST ondansetron, 4 mg = 1 tab(s), Oral, q8hr, PRN Nausea/Vomiting, # 30 tab(s), Refills(s) 0, Pharmacy: [facility]/pharmacy #[id number], 168, cm, 10/23/23 13:41:00 EST, Height/Length Dosing, 75.1, kg, 10/23/23 13:41:00 EST, Weight Dosing Sodium Chloride 0.9% intravenous solution, 1,000 mL, Soln-IV, IV, Once, Stop date 10/23/23 14:29:00 EST, STAT, Start date 10/23/23 14:29:00 EST, Infuse over 61, minute(s) tamsulosin, 0.4 mg = 1 cap(s), Oral, Daily, # 10 cap(s), Refills(s) 0, Pharmacy: [facility]/pharmacy #[id number], 168, cm, 10/23/23 13:41:00 EST, Height/Length Dosing, 75.1, k (more content not included)... Normal [facility] Comment on above: Result Comment: Elec tronically Signed By: Heath MORELOS, Santos Rouse\.br\Date and Time Signed: 10/23/23 17:03 EST\.br\Electronically Co-Signed By: Zoila Castillo M.D.\.br\Date and Time Co-Signed: 10/23/23 17:14 EST ED Patient Education Noteon 10-23-2023 ED Patient Education Note Urology Kidney Stones Kidney stones are solid, rock-like deposits that form inside of the kidneys. The kidneys are a pair of organs that make urine. A kidney stone may form in a kidney and move into other parts of the urinary tract, including the tubes that connect the kidneys to the bladder (ureters), the bladder, and the tube that carries urine out of the body (urethra). As the stone moves through these areas, it can cause intense pain and block the flow of urine. Kidney stones are created when high levels of certain minerals are found in the urine. The stones are usually passed out of the body through urination, but in some cases, medical treatment may be needed to remove them. What are the causes? Kidney stones may be caused by: ? A condition in which certain glands produce too much parathyroid hormone (primary hyperparathyroidism), which causes too much calcium buildup in the blood. ? A buildup of uric acid crystals in the bladder (hyperuricosuria). Uric acid is a chemical that the body produces when you eat certain foods. It usually leaves the body in the urine. ? Narrowing (stricture) of one or both of the ureters. ? A kidney blockage that is present at (congenital obstruction). ? Past surgery on the kidney or the ureters. What increases the risk? The following factors may make you more likely to develop this condition: ? Having had a kidney stone in the past. ? Having a family history of kidney stones. ? Not drinking enough water. ? Eating a diet that is high in protein, salt (sodium), or sugar. ? Being overweight or obese. What are the signs or symptoms? Symptoms of a kidney stone may include: ? Pain in the side of the abdomen, right below the ribs (flank pain). Pain usually spreads (radiates) to the groin. ? Needing to urinate often or urgently. ? Painful urination. ? Blood in the urine (hematuria). ? Nausea. ? Vomiting. ? Fever and chills. How is this diagnosed? This condition may be diagnosed based on: ? Your symptoms and medical history. ? A physical exam. ? Blood tests. ? Urine tests. These may be done before and after the stone passes out of your body through urination. ? Imaging tests, such as a CT scan, abdominal X-ray, or ultrasound. ? A procedure to examine the inside of the bladder (cystoscopy). How is this treated? Treatment for kidney stones depends on the size, location, and makeup of the stones. Kidney stones will often pass out of the body through urination. You may need to: ? Increase your fluid intake to help pass the stone. In some cases, you may be given fluids through an IV and may need to be monitored in the hospital. ? Take medicine for pain. ? Make changes in your diet to help prevent kidney stones from coming back. Sometimes, procedures are needed to remove a kidney stone. This may involve: ? A procedure to break up kidney stones using: ? A focused beam of light (laser therapy). ? Shock waves (extracorporeal shock wave lithotripsy). ? Surgery to remove kidney stones. This may be needed if you have severe pain or have stones that block your urinary tract. Follow these instructions at home: Medicines ? Take xqkx-lyn-wkpfliq and prescription medicines only as told by your health care provider. ? Ask your health care provider if the medicine prescribed to you requires you to avoid driving or using heavy machinery. Eating and drinking ? Drink enough fluid to keep your urine pale yellow. You may be instructed to drink at least 8?10 glasses of water each day. This will help you pass the kidney stone. ? If directed, change your diet. This may include: ? Limiting how much sodium you eat. ? Eating more fruits and vegetables. ? Limiting how much animal protein you eat. Animal proteins include red meat, poultry, fish, and eggs. ? Eating a normal amount of calcium (1,000?1,300 mg per day). ? Follow instructions from your health care provider about eating or drinking restrictions. General instructions ? Collect urine samples as told by your health care provider. You may need to collect a urine sample: ? 24 hours after you pass the stone. ? 8?12 weeks after you pass the kidney stone, and every 6?12 months after that. ? Strain your urine every time you urinate, for as long as directed. Use the strainer that your health care provider recommends. ? Do not throw out the kidney stone after passing it. Keep the stone so it can be tested by your health care provider. Testing the makeup of your kidney stone may help prevent you from getting kidney stones in the future. ? Keep all follow-up visits. You may need follow-up X-rays or ultrasounds to make sure that your stone has passed. How is this prevented? To prevent another kidney stone: ? Drink enough fluid to keep your urine pale yellow. This is the best way to prevent kidney stones. ? Eat a healthy diet. Follow recommendations from (more content not included)... Normal [facility] ED Patient Summaryon 023 ED Patient Summary (Inserted Image. Perla ble to display) [place] [id number] Patient Discharge Instructions Person Information Name: JAM TOSCANO Age: 58 Years Arrival Date: 10/23/2023 13:30:39 Discharge Diagnosis: Kidney stone on left side Primary Care Physician: Jose L Lackey MD Provider Information Primary Provider: Zoila Castillo M.D. Advanced Interim Controller:None The exam and treatment you received in the Emergency Department were for an urgent problem and are not intended as complete care. It is important that you follow up with a doctor, nurse practitioner, or physician?s captain assistant for ongoing care. If your symptoms become worse or you do not improve as expected and you are unable to reach your usual health care provider, you should return to the Emergency Department. We are available 24 hours a day. JAM TOSCANO has been given the following list of patient education materials, prescriptions and follow-up instructions: Follow-up Instructions: With: Address: When: Otilia Roverto [address] [place], [place] [id number] [phone] [email or web address] (1) In 3 days 10/26/2023 Comments: Follow-up with urology for further evaluation of your left-sided kidney stones. With: Address: When: Jose L Lackey [address] [facility] [place] [phone] Business (1) In 3 days 10/26/2023 Comments: Follow-up with your primary care provider in 3 to 5 days. If symptoms worsen, do not improve, or new symptoms arise please report back to emergency department for further evaluation. In the event that this physician does not participate in your insurance network, please consult with your insurance company to find a nearby participating provider. Patient Education Materials: Kidney Stones A MESSAGE TO ALL PATIENTS REGARDING OPIOIDS PRESCRIPTION OPIOIDS: WHAT YOU NEED TO KNOW Prescription opioids can be used to help relieve nahzgawo-nx-nqpgvd pain and are often prescribed following a surgery or injury, or for certain health conditions. These medications can be an important part of the treatment but also come with serious risks. It is important to work with your healthcare provider to make sure you are getting the safest, most effective care. WHAT ARE THE RISKS AND SIDE EFFECTS OF OPIOID USE? Prescription opioids carry serious risks of addiction and overdose, especially with prolonged use. An opioid overdose, often marked by slowed breathing, can cause sudden . The use of prescription opioids can have a number of side effects as well, even when taken as directed: ? Tolerance?meaning you might need to take more of the medication for the same pain relief ? Physical dependence?meaning you have symptoms of withdrawal when a medication is stopped ? Increased sensitivity to pain ? Constipation ? Nausea, vomiting, and dry mouth ? Sleepiness and dizziness ? Confusion ? Depression ? Low levels of testosterone that can result in lower sex drive, energy, and strength ? Itching and sweating RISKS ARE GREATER WITH: ? History of drug misuse, substance use disorder, or overdose ? Mental health conditions (such as depression or anxiety) ? Sleep apnea ? Older age (65 years and older) ? Avoid alcohol while taking prescription opioids. Also, unless specifically advised by your health care provider, medications to avoid include: ? Benzodiazepines (such as Xanax or Valium) ? Muscle relaxants (such as Soma or Flexeril) ? Hypnotics (such as Ambien or Lunesta) ? Other prescription opioids KNOW YOUR OPTIONS Talk to your health care provider about ways to manage your pain that don?t involve prescription opioids. Some of these options may actually work better and have fewer risks and side effects. Options may include: ? Pain relievers such as acetaminophen, ibuprofen, and naproxen ? Some medication that are also used for depression or seizures ? Physical therapy and exercise ? Cognitive behavioral therapy, a psychological, goal-directed approach, in which patients learn how to modify physical, behavioral, and emotional triggers of pain and stress. IF YOU ARE PRESCRIBED OPIOIDS FOR PAIN: ? Never take opioids in greater amounts or more often than prescribed. ? Follow up with your primary health care provider. o Work together to create a plan on how to manage your pain. o Talk about ways to help manage your pain that don?t involve prescription opioids. o Talk about any and all concerns and side effects. ? Help prevent misuse and abuse o Never sell or share prescription opioids. o Never use another person?s prescription opioids. ? Store prescription opioids in a secure place and out of reach of others (this may include visitors, children, friends, and family). ? Safely dispose of unused prescription opioids: Find your community drug take-back program or your pharma (more content not included)... Normal [facility] Hep Func Panelon 10-23-2023 Bilirubin.indirect [Mass or moles/Vol] UTC Abnormal 0.1-0.9 [facility] Comment on above: Result Comment: Resu lt verified by Discern Rule. Performed result UTC (Unable to Calculate) was sent as an Alpha code due the inability to calculate a valid numeric value. Performed By: #### 2 [id number], 3303591, 7308463, 9537792, 10284192, 5091266 ####[address] [place] [address] Albumin [Mass/Vol] 3.5 g/dL Normal 3.3-5.0 [facility] Comment on above: Performed By: #### 2 105026, 0130567, 0385727, 5316819, 35337145, 9712823 ####[address] [place] [address] Albumin/Globulin (S) [Mass conc ratio] 1.0 Low 1.1-2.2 [facility] Comment on above: Performed By: #### 2 039042, 0693050, 6726896, 5762290, 31699750, 1757572 ####[address] [address] ALP [Catalytic activity/Vol] 194 Int._Unit/L High 21-98 [facility] Comment on above: Performed By: #### 2 570245, 0036260, 2685552, 2472348, 60449825, 0962293 ####[address] [address] ALT No additional P-5'-P [Catalytic activity/Vol] 32 Int._Unit/L Normal 6-46 [facility] Comment on above: Performed By: #### 2 275420, 9456389, 6573216, 8869134, 35343961, 6806834 ####[address] [place] [address] AST [Catalytic activity/Vol] 34 Int._Unit/L Normal 5-43 [facility] Comment on above: Performed By: #### 2 959043, 9304829, 1114082, 1078171, 43193549, 1537338 ####[address] [place] [address] Bilirubin [Mass/Vol] 0.4 mg/dL Normal 0.0-1.1 [facility] Comment on above: Performed By: #### 2 718197, 5815346, 4100647, 6052065, 14258596, 6107700 ####[facility] [address] [place] [address] Globulin (S) [Mass/Vol] 3.7 g/dL Normal 1.4-4.0 [facility] Comment on above: Performed By: #### 2 696739, 2812879, 0520262, 5400678, 08186336, 6977620 ####[facility] [address] [place] [address] Protein [Mass/Vol] 7.2 g/dL Normal 6.0-7.8 [facility] Comment on above: Performed By: #### 2 442846, 4513492, 1995461, 5722245, 23282279, 9699825 ####[facility] [address] [place] [address] Bilirubin.direct [Mass/Vol] mg/dL Normal 0.1-0.4 [facility] Comment on above: Performed By: #### 2 586515, 7927012, 9135781, 4138710, 30329259, 9729286 ####[address] [place] [address] Lipase Levelon 10-23-2023 Lipase [Catalytic activity/Vol] 31 U/L Normal 13-58 [facility] Comment on above: Performed By: #### 2 810246, 1643476, 6432088, 3806805, 26941000, 4506851 #### [facility] [address] [place] [address] Physician Orderon 10-23-2023 Physician Order [id number] Normal [facility] UA With Cult Reflexon 2022 Bacteria LM Ql (Urine sed) 1+ /HPF Abnormal Trace [facility] Comment on above: Performed By: #### 1 [id number] #### [facility] [address] [place] [address] Bilirubin Ql (U) Negative Normal Negative [facility] Comment on above: Performed By: #### 1 5189710 #### [facility] [address] [place] [address] Clarity (U) CLEAR Normal Clear [facility] Comment on above: Performed By: #### 1 [id number] #### [facility] [address] [place] [address] Color (U) YELLOW Normal Yellow [facility] Comment on above: Performed By: #### 1 7846092 #### [facility] [address] [place] [address] Epithelial cells.squamous LM.HPF (Urine sed) [#/Area] 0-2 Normal 0-2 [facility] Comment on above: Performed By: #### 1 4403670 #### [facility] [address] [place] [address] Glucose Test strip (U) [Mass/Vol] Negative Normal Negative [facility] Comment on above: Performed By: #### 1 8230092 #### [facility] [address] [place] [address] Hemoglobin Ql (U) 3+ Abnormal Negative [facility] Comment on above: Performed By: #### 1 3691122 #### [facility] [address] [place] [address] Ketones (U) [Mass/Vol] Negative Normal Negative Fi [facility] Comment on above: Performed By: #### 1 7542227 #### [facility] [address] [place] [address] Weingarten.plasma/Weingarten.RB C (Bld) [Mass ratio] 4-20 Normal 0-3 [facility] Comment on above: Performed By: #### 1 6071438 #### [facility] [address] [place] [address] Mucus Ql (Urine sed) TRACE Normal [facility] Comment on above: Performed By: #### 1 1771687 #### [facility] [address] [place] [address] Nitrite Ql (U) Negative Normal Negative [facility] Comment on above: Performed By: #### 1 [id number] #### [facility] [address] [place] [address] pH (U) 6.0 [pH] Invalid Interpretation Code 5.0-9.0 [facility] Comment on above: Performed By: #### 1 6193239 #### [facility] [address] [place] [address] Protein (U) [Mass/Vol] TRACE Abnormal Negative [facility] Comment on above: Performed By: #### 1 6132889 #### [facility] [address] [place] [address] Specific gravity (U) [Rel density] 1.010 Invalid Interpretation Code 1.005-1.03 0 [facility] Comment on above: Performed By: #### 1 5235989 #### [facility] [address] [place] [address] Type of Urine collection method Clean Catch Normal [facility] Comment on above: Performed By: #### 1 [id number] #### [facility] [address] [place] [address] Urobilinogen Qn (U) 0.2 {Rosina'U}/dL Normal 0.0-1.0 [facility] Comment on above: Performed By: #### 1 1019475 #### [facility] [address] [place] [address] WBC Auto Ql (U) TRACE Abnormal Negative [facility] Comment on above: Performed By: #### 1 1169792 #### [facility] [address] [place] [address] WBC LM.HPF (Urine sed) [#/Area] 0-5 Normal 0-5 [facility] Comment on above: Performed By: #### 1 1099791 #### [facility] [address] [place] [address] eGFRon 10-23-2023 GFR/1.73 sq M.predicted among non-blacks MDRD (S/P/Bld) [Vol rate/Area] 102 mL/min/1.73 m2 Normal >=59 [facility] Comment on above: Order Comment: Order added by Discern Expert. Result Comment: Sound Recording Technician clark kidney disease could be indicated at eGFR's of less than 60 mL/min/1.73m2. Kidney failure is indicated at less than 15 mL/min/1.73m2. Performed By: #### 2 454547, 3737141, 8266878, 7336859, 23122137, 4096525 ####[facility] [address] [place] [address] Physician Orderon 07-02-2023 Physician Order [id number]:1 [id number] Normal [facility] LIPID PROFILEon 02-11-2023 CHOL-HDL RATIO NORM SEE BELOW Normal [facility] Comment on above: Result Comment: 3.3 - 4.4 LOW RISK 4.4 - 7.1 AVERAGE RISK 7.1 - 11.0 MODERATE RISK >11.0 HIGH RISK Performed By: #### L IPID, LIVER #### [facility] [address] [place] [address] Dr. Rj Miller Cholesterol [Mass/Vol] 99 mg/dL Normal <=200 Th [facility] Comment on above: Performed By: #### L IPID, LIVER #### [facility] [address] [address] [address] Rj Miller Cholesterol in HDL [Mass/Vol] 44 mg/dL Normal 40-60 [facility] Comment on above: Performed By: #### L IPID, LIVER #### [facility] [address] [address] [address] Rj Miller Cholesterol in LDL [Mass/Vol] 45.4 mg/dL Normal [facility] Comment on above: Performed By: #### L IPID, LIVER #### [facility] [address] [address] [address] Rj Miller Cholesterol.total/Cholest carlos in HDL [Mass ratio] 2.3 {ratio} Normal [facility] Comment on above: Performed By: #### L IPID, LIVER #### [facility] [address] [address] [address] Rj Miller HDL NORMAL > or = 60 mg/dl - LO W CARDIOVASCULAR RISK <40 mg/dl - HIGH CARDIOVASCULAR RISK Normal [facility] Comment on above: Performed By: #### L IPID, LIVER #### [facility] [address] [address] [address] Rj Miller LDL CALC NORMAL SEE BELOW Normal [facility] Comment on above: Result Comment: <100 mg/dl OPTIMAL 100 - 129 mg/dl NEAR OR ABOVE OPTIMAL 130 - 159 mg/dl BORDERLINE HIGH 160 - 189 mg/dl HIGH >190 mg/dl VERY HIGH Performed By: #### L IPID, LIVER #### [facility] [address] [place] [address] Dr. Rj Miller Triglyceride [Mass/Vol] 48 mg/dL Normal <=150 T [facility] Comment on above: Performed By: #### L IPID, LIVER #### [facility] [address] [place] [address] Dr. Rj Miller VLDL CALC 9.6 mg/dL Normal [facility] Comment on above: Performed By: #### L IPID, LIVER #### [facility] [address] [place] [address] Dr. Rj Miller LIVER PROFILEon 02-11-2023 Albumin [Mass/Vol] 3.7 g/dL Normal 3.4-5.0 [facility] Comment on above: Performed By: #### L IPID, LIVER #### [facility] [address] [place] [address] Dr. Rj Miller Albumin/Globulin [Mass ratio] 1.0 {ratio} Normal [facility] Comment on above: Performed By: #### L IPID, LIVER #### [facility] [address] [place] [address] Dr. Rj Miller ALP [Catalytic activity/Vol] 210 U/L Critically high 46-116 [facility] Comment on above: Performed By: #### L IPID, LIVER #### [facility] [address] [address] [address] Rj Miller ALT [Catalytic activity/Vol] 50 U/L Normal 16-63 [facility] Comment on above: Performed By: #### L IPID, LIVER #### [facility] [address] [address] [address] Rj Miller AST [Catalytic activity/Vol] 42 U/L Critically high 15-37 [facility] Comment on above: Performed By: #### L IPID, LIVER #### [facility] [address] [place] [address] Dr. Rj Miller BILI, CONJUGATED 0.1 mg/dL Normal 0.0-0.2 [facility] Comment on above: Performed By: #### L IPID, LIVER #### [facility] [address] [place] [address] Dr. Rj Miller Bilirubin [Mass/Vol] 0.3 mg/dL Normal 0.2-1.0 [facility] Comment on above: Performed By: #### L IPID, LIVER #### [facility] [address] [place] [address] Dr. Rj Miller Globulin (S) [Mass/Vol] 3.7 g/dL Normal T [facility] Comment on above: Performed By: #### L IPID, LIVER #### [facility] [address] [place] [address] Dr. Rj Miller Protein [Mass/Vol] 7.4 g/dL Normal 6.4-8.2 [facility] Comment on above: Performed By: #### L IPID, LIVER #### [facility] [address] [place] [address] Dr. Rj Miller 25-hydroxyvitamin D3 [Mass/V ol]on 01-14-2023 Vitamin D 25 [place] 40.2 ng/mL 30 - 100 ng/mL [facility] MRI LSPINE WO CONon 11-24-19 23 MRI LSPINE WO CON EXAMINATION: MRI LSP INE WO CON HISTORY: Low back pain COMPARISON: No relevant comparison available. TECHNIQUE: A variety of imaging planes and parameters were utilized for visualization of suspected pathology. FINDINGS: For the purposes of numbering, sagittal T2 image # 8 extends from the T11 vertebral body superiorly to the S3-S4 level inferiorly. PARASPINAL AREA: Normal with no visible mass. BONES: Normal alignment with no acute fracture or spondylolisthesis. Mild anterior wedging T12 and L2, chronic. Some signal changes noted right inferior L3 and superior L4 vertebral bodies, Modic 2 change CORD/CAUDA EQUINA: Normal caliber, contour, and signal intensity. DISC LEVELS: 12-L1: No significant disc/facet abnormality, spinal stenosis, or foraminal stenosis. L1-L2: No significant disc/facet abnormality, spinal stenosis, or foraminal stenosis. L2-L3: Moderate disc space narrowing and disc desiccation. Moderate diffuse disc/osteophyte complex most significant along the left neural foramen. Ligamentum flavum hypertrophy. No central canal or right foraminal stenosis. Mild narrowing of the left neural foramen L3-L4: Asymmetric disc space narrowing, severe on the right, mild on the left with endplate sclerosis. Moderate diffuse disc/osteophyte complex extending posteriorly up to 4 mm. Ligamentum flavum hypertrophy. No central canal or left foraminal stenosis. Mild narrowing of the right neural foramen, sagittal image 12 L4-L5: Early degenerative disc disease is present without focal protrusion or neural impingement. L5-S1: Moderate disc space narrowing and disc desiccation. Mild posterior disc/osteophyte complex. No central or foraminal stenosis IMPRESSION: Gekw-wa-nsajcale degenerative changes resulting in mild left L2-L3 and mild right L3-L4 foraminal stenosis Electronically authenticated by: KALEIGH CANTOR Date: 2022-11-24 11:35 Normal [facility] XR LSPINE MIN 4 VIEWSon 10-17 XR LSPINE MIN 4 VIEWS EXAMINATION: XR LS PINE MIN 4 VIEWS HISTORY: Pain in lumbar spine ; back pain radiating into left leg; no known injury COMPARISON: No relevant comparison available. FINDINGS: BONES: Moderate degenerative facet arthropathy L3-L4 through L5-S1. No fracture spondylolisthesis. DISC SPACES: Multilevel degenerative disc disease; marked at L3-L4, moderate L5-S1, mild L2-L3. PARASPINOUS: Marked atherosclerotic disease of aorta. OTHER: Right hip replacement. IMPRESSION: 1. Multilevel moderate marked degenerative disc disease and degenerative facet arthropathy. Electronically authenticated by: JENNY TAPIA Date: 2022-11-07 11:13 Normal [facility] DXA-AXIAL SKELETONon 022 LOWEST T-SCORE -2.5 [facility] CBC AUTO DIFFon 09-24-2022 BASO # 0.0 103/ul Normal 0.0-0.1 [facility] Comment on above: Performed By: #### C BC #### [facility] [address] [address] [address] Rj Miller Basophils/100 WBC (Bld) 0.5 % Normal 0.2-2.0 [facility] Comment on above: Performed By: #### C BC #### [facility] [address] [place] [address] Dr. Rj Miller EO # 0.2 103/ul Normal 0.0-0.7 [facility] Comment on above: Performed By: #### C BC #### [facility] [address] [address] [address] Rj Miller Eosinophils/100 WBC (Bld) 1.8 % Normal 0.9-7.0 [facility] Comment on above: Performed By: #### C BC #### [facility] [address] [address] [address] Rj Miller Erythrocyte distribution width (RBC) [Ratio] 13.6 % Normal 11.0-15.0 [facility] Comment on above: Performed By: #### C BC #### [facility] [address] [address] [address] Rj Miller Hematocrit (Bld) [Volume fraction] 41.3 % Critically low 42.0-54.0 [facility] Comment on above: Performed By: #### C BC #### [facility] [address] [address] [address] Rj Miller Hemoglobin (Bld) [Mass/Vol] 14.1 g/dL Normal 14.0-18.0 [facility] Comment on above: Performed By: #### C BC #### [facility] [address] [place] [address] Dr. Rj Miller IG # 0.02 10e3/ul Normal 0.00-0.03 [facility] Comment on above: Performed By: #### C BC #### [facility] [address] [place] [address] Dr. Rj Miller IG % 0.2 % Normal 0.0-0.5 [facility] Comment on above: Performed By: #### C BC #### [facility] [address] [place] [address] Dr. Rj Miller LYMPH # 2.4 103/ul Normal 1.2-3.8 [facility] Comment on above: Performed By: #### C BC #### [facility] [address] [place] [address] Dr. Rj Miller Lymphocytes/100 WBC (Bld) 29.5 % Normal 20.5-60.0 [facility] Comment on above: Performed By: #### C BC #### [facility] [address] [place] [address] Dr. Rj Miller MANUAL DIFF REQ NO Normal [facility] Comment on above: Performed By: #### C BC #### [facility] [address] [place] [address] Dr. Rj Miller MCH (RBC) [Entitic mass] 31.1 pg Normal 25.9-34.0 [facility] Comment on above: Performed By: #### C BC #### [facility] [address] [place] [address] Dr. Rj Miller MCHC (RBC) [Mass/Vol] 34.1 g/dL Normal 29.9-35.2 [facility] Comment on above: Performed By: #### C BC #### [facility] [address] [place] [address] Dr. Rj Miller MCV (RBC) [Entitic vol] 91.0 fL Normal 80.0-94.0 [facility] Comment on above: Performed By: #### C BC #### [facility] [address] [place] [address] Dr. Rj Miller MONO # 0.7 103/ul Normal 0.3-0.8 [facility] Comment on above: Performed By: #### C BC #### [facility] [address] [place] [address] Dr. Rj Miller Monocytes/100 WBC (Bld) 8.3 % Normal 1.7-12.0 [facility] Comment on above: Performed By: #### C BC #### [facility] [address] [place] [address] Dr. Rj Miller NEUT # 4.9 103/ul Normal 1.4-6.5 [facility] Comment on above: Performed By: #### C BC #### [facility] [address] [place] [address] Dr. Rj Miller Neutrophils/100 WBC (Bld) 59.7 % Normal 43.0-75.0 [facility] Comment on above: Performed By: #### C BC #### [facility] [address] [place] [address] Dr. Rj Miller Platelet mean volume (Bld) [Entitic vol] 8.8 fL Critically low 9.5-13.5 [facility] Comment on above: Performed By: #### C BC #### [facility] [address] [place] [address] Dr. Rj Miller PLT 288 103/ul Normal 150-450 [facility] Comment on above: Performed By: #### C BC #### [facility] [address] [place] [address] Dr. Rj Miller RBC 4.54 106/ul Critically low 4.70-6.10 [facility] Comment on above: Performed By: #### C BC #### [facility] [address] [place] [address] Dr. Rj Miller WBC 8.2 103/ul Normal 4.0-11.0 [facility] Comment on above: Performed By: #### C BC #### [facility] [address] [place] [address] Dr. Rj Miller Covid-19 PCR (CVDTBH)on SARS-CoV-2 (COVID-19) RNA BERNARDO+probe Ql (Unsp spec) Not detected Normal NOT DETECTED [facility] Comment on above: Result Comment: When diagnostic testing is negative, the possibility of a false negative should be considered in the context of a patient's recent exposures and the presence of clinical signs and symptoms consistent with SARS-CoV-2. This test is not yet approved or cleared by the [place] FDA. When there are no FDA-approved or cleared tests available, and other criteria are met, FDA can make tests available under an emergency access mechanism called an Emergency Use Authorization (EUA). The EUA for this test is supported by the Resident Doctor of Health and Human Service's declaration that circumstances exist to justify the emergency use of in vitro diagnostics for the detection and/or diagnosis of the virus that causes COVID-19. This EUA will remain in effect for the duration of the COVID-19 declaration justifying emergency of IVDs, unless it is terminated or revoked by the FDA (after which the test may no longer be used). Performed By: #### C VDTBH #### [facility] [address] [place] [address] Dr. Rj Miller LIPASEon 09-24-2022 Lipase [Catalytic activity/Vol] 17.0 U/L Critically low 73.0-393.0 [facility] Comment on above: Performed By: #### C MP, LIPA, HSTROPN #### [facility] [address] [place] [address] Dr. Rj Miller PROF 14(COMP METB)on 022 Albumin [Mass/Vol] 3.8 g/dL Normal 3.4-5.0 [facility] Comment on above: Performed By: #### C MP, LIPA, HSTROPN #### [facility] [address] [place] [address] Dr. Rj Miller Albumin/Globulin [Mass ratio] 1.0 {ratio} Normal [facility] Comment on above: Performed By: #### C MP, LIPA, HSTROPN #### [facility] [address] [place] [address] Dr. Rj Miller ALP [Catalytic activity/Vol] 180 U/L Critically high 46-116 [facility] Comment on above: Performed By: #### C MP, LIPA, HSTROPN #### [facility] [address] [place] [address] Dr. Rj Miller ALT [Catalytic activity/Vol] 38 U/L Normal 16-63 [facility] [place] Comment on above: Performed By: #### C MP, LIPA, HSTROPN #### [facility] [place] Laboratory [address] [address] [address] Rj Miller Anion gap [Moles/Vol] 8.7 mmol/L Normal [facility] [place] Comment on above: Performed By: #### C MP, LIPA, HSTROPN #### [facility] [place] Laboratory [address] [address] [address] Rj Miller AST [Catalytic activity/Vol] 28 U/L Normal 15-37 [facility] [place] Comment on above: Performed By: #### C MP, LIPA, HSTROPN #### [facility] [place] Laboratory [address] [address] [address] Rj Miller Bilirubin [Mass/Vol] 0.4 mg/dL Normal 0.2-1.0 [facility] [place] Comment on above: Performed By: #### C MP, LIPA, HSTROPN #### [facility] [place] Laboratory [address] [address] [address] Rj Miller Calcium [Mass/Vol] 8.9 mg/dL Normal 8.5-10.1 [facility] [place] Comment on above: Performed By: #### C MP, LIPA, HSTROPN #### [facility] [place] Laboratory [address] [address] [address] Rj Miller Chloride [Moles/Vol] 103 mmol/L Normal 98-107 [facility] [place] Comment on above: Performed By: #### C MP, LIPA, HSTROPN #### [facility] [place] Laboratory [address] [address] [address] Rj Miller CO2 [Moles/Vol] 26.0 mmol/L Normal 21.0-32.0 [facility] Comment on above: Performed By: #### C MP, LIPA, HSTROPN #### [facility] [place] Laboratory [address] [place] [address] Dr. Rj Miller Creatinine [Mass/Vol] 0.88 mg/dL Normal 0.70-1.30 [facility] Comment on above: Performed By: #### C MP, LIPA, HSTROPN #### [facility] [place] Laboratory [address] [place] [address] Dr. Rj Miller EGFR-AF WALLISIAN >60 Normal >=60 [facility] Comment on above: Performed By: #### C MP, LIPA, HSTROPN #### [facility] [place] Laboratory [address] [place] [address] Dr. Rj Miller EGFR-NON AF WALLISIAN >60 Normal >=60 [facility] Comment on above: Performed By: #### C MP, LIPA, HSTROPN #### [facility] [place] Laboratory [address] [place] [address] Dr. Rj Miller Globulin (S) [Mass/Vol] 3.8 g/dL Normal [facility] Comment on above: Performed By: #### C MP, LIPA, HSTROPN #### [facility] [place] Laboratory [address] [place] [address] Dr. Rj Miller Glucose [Mass/Vol] 116 mg/dL Critically high 74-106 [facility] Comment on above: Performed By: #### C MP, LIPA, HSTROPN #### [facility] [place] Laboratory [address] [place] [address] Dr. Rj Miller Potassium [Moles/Vol] 3.7 mmol/L Normal 3.5-5.1 [facility] Comment on above: Performed By: #### C MP, LIPA, HSTROPN #### [facility] [place] Laboratory [address] [place] [address] Dr. Rj Miller Protein [Mass/Vol] 7.6 g/dL Normal 6.4-8.2 [facility] Comment on above: Performed By: #### C MP, LIPA, HSTROPN #### [facility] [place] Laboratory [address] [address] [address] Rj Miller Sodium [Moles/Vol] 134 mmol/L Critically low 136-145 Th e [facility] [place] Comment on above: Performed By: #### C MP, LIPA, HSTROPN #### [facility] [place] Laboratory [address] [address] [address] Rj Miller Urea nitrogen [Mass/Vol] 13.0 mg/dL Normal 7.0-18.0 [facility] Comment on above: Performed By: #### C MP, LIPA, HSTROPN #### [facility] [place] Laboratory [address] [address] [address] Rj Miller Urea nitrogen/Creatinine [Mass ratio] 14.8 mg/mg Normal [facility] Comment on above: Performed By: #### C MP, LIPA, HSTROPN #### [facility] [place] Laboratory [address] [place] [address] Dr. Rj Miller TROPONIN, HIGH SENSITIVITYon 09-24-2022 HSTROP 10.1 pg/mL Normal 4.0-76.1 [facility] Comment on above: Result Comment: CUT- OFF POINTS HAVE BEEN ESTABLISHED BASED ON THE FOURTH UNIVERSAL DEFINITIONS OF MYOCARDIAL INFARCTION. THE UPPER REFERENCE LIMIT (URL) OF TROPONIN, DEFINED THE 99TH PERCENTILE OF cTnI DISTRIBUTION IN A REFERENCE POPULATION, HAS BEEN CONFIRMED THE DECISION THRESHOLD FOR AK DIAGNOSIS. Performed By: #### C MP, LIPA, HSTROPN #### [facility] [place] Laboratory [address] [place] [address] Dr. Rj Miller XR CSPINE 2_3 VIEWSon 2021 XR CSPINE 2_3 VIEWS EXAMINATION: XR CSPI NE 2_3 VIEWS HISTORY: Neck pain ; posterior neck pain at base of skull COMPARISON: No relevant comparison available. FINDINGS: BONES: Straightening of normal lordotic curvature; positioning versus muscle spasm. Mild degenerative facet arthropathy at all cervical levels. No fracture, spondylolisthesis, bone lesion. DISC SPACES: Mild narrowing C4-C5 through C6-C7. PARASPINOUS: Negative. No paraspinous abnormality is seen. OTHER: Negative. IMPRESSION: 1. Multilevel mild degenerative changes. Consider MRI for further evaluation. Electronically authenticated by: JENNY TAPIA Date: 2022-09-24 07:20 Normal [facility] [place] Basic Metabolic Panelon 04- Calcium [Mass/Vol] 8.7 mg/dL Normal 8.2-10.2 [facility] Comment on above: Performed By: #### B MP #### [facility] [address] Chloride [Moles/Vol] 107 mmol/L Normal 95-114 [facility] Comment on above: Performed By: #### B MP #### [facility] [address] CO2 [Moles/Vol] 23.3 mmol/L Normal 22.0-30.0 [facility] Comment on above: Performed By: #### B MP #### [address] Creatinine [Mass/Vol] 0.80 mg/dL Normal 0.64-1.27 [facility] Comment on above: Performed By: #### B MP #### [place] [address] [place] Creatinine Clr Calc Pharmacy 101.34 [facility] Comment on above: Result Comment: PERF ORMED BY: [place] [address] PATHOLOGIST GEOSCIENCE SPECIALIST MARGO MINOR M.D. Performed By: #### B MP #### [address] Estimated GFR ( David > 60 [facility] Comment on above: Result Comment: GFR estimated reference range: According to KDOQI guidelines, <60 ml/min/1.73m2 is sufficient to diagnose a patient with chronic kidney disease. Performed By: #### B MP #### [address] Estimated GFR (Non- Am > 60 [facility] Comment on above: Performed By: #### B MP #### [place] [address] [place] Glucose [Mass/Vol] 101 mg/dL High 70-100 [facility] Comment on above: Result Comment: [facility] Glucose Reference Range is dependent on time and content of last meal. Glucose of more than 200 mg/dL in a nonstressed, ambulatory subject supports the diagnosis of Diabetes Mellitus. ADA recommended reference range Performed By: #### B MP #### [facility] [address] [place] [address] [place] Potassium [Moles/Vol] 4.3 mmol/L Normal 3.5-5.1 [facility] Comment on above: Performed By: #### B MP #### [facility] [address] [place] [address] [place] Sodium [Moles/Vol] 138 mmol/L Normal 136-146 [facility] Comment on above: Performed By: #### B MP #### [facility] [address] [place] [id number] [facility] Urea nitrogen [Mass/Vol] 13 mg/dL Normal 9-23 [facility] Comment on above: Performed By: #### B MP #### [facility] [address] [place] [id number] [place] Calculi, Urinaryon 1 Ca Oxalate Dihydrate 60 % Normal . [facility] Comment on above: Performed By: #### C ALCULI #### [facility] , Ca Oxalate Monohydrate 30 % Normal . [facility] Comment on above: Performed By: #### C ALCULI #### [facility] , Color (U) Moy Normal . [facility] Comment on above: Performed By: #### C ALCULI #### [facility] , Comment: Normal . [facility] Comment on above: Result Comment: Liz guidry questions regarding Calculi Analysis contact [facility] at: [phone]. Performed By: #### C ALCULI #### [facility] , Composition Normal . [facility] Comment on above: Result Comment: Perc entage (Represents the % composition) Performed By: #### C ALCULI #### [facility] , Disclaimer: Normal . [facility] Comment on above: Result Comment: This test was developed and its performance characteristics determined by [facility]. It has not been cleared or approved by the Food and Drug Administration. Performed at: [facility] [address] [place], [place], [place] [id number] [employer] Die Repair Manager: Anthony Grey MD, Phone: [phone] Performed By: #### C ALCULI #### [facility] , Hydroxyapatite 10 % Normal . [facility] Comment on above: Performed By: #### C ALCULI #### [facility] , Note Normal . [facility] Comment on above: Result Comment: Calc josafat report will follow via computer, mail or oil house attendant delivery. PERFORMED BY: [place] [address] PATHOLOGIST GEOSCIENCE SPECIALIST MARGO MINOR M.D. Performed By: #### C ALCULI #### [facility] , Photo Normal . [facility] Comment on above: Result Comment: Phot ograph will follow under a separate cover Performed By: #### C ALCULI #### [facility] , Size 6x6 Normal . [facility] Comment on above: Result Comment: Mult iple pieces received. Dimensions of the largest piece reported. Performed By: #### C ALCULI #### [facility] , Source Ureter Normal . [facility] Comment on above: Performed By: #### C ALCULI #### [facility] , Weight 110 Normal . [facility] Comment on above: Performed By: #### C ALCULI #### [facility] , ECG 12 lead ECGon 02-27-2021 ECG 12 lead ECG [facility] Main [place] [address] [place] [id number] Electrocardiograph Report Signed Patient: Jam Toscano MR#: [id number] : 1965 Acct:[id number] Age/Sex: 55 / M ADM Date: 02/27/21 Loc: [place] Room: Type: [facility] Attending Dr: Rigo Gonzalez Jr, MD Ordering Provider: KALEIGH MOCK DO Date of Service: 02/27/21 ECG/ECG 12 lead ECG: preop Copies to: Test Reason : Blood Pressure : / mmHG Vent. Rate : 095 BPM Atrial Rate : 095 BPM P-R Int : 144 ms QRS Dur : 070 ms QT Int : 356 ms P-R-T Axes : 056 061 057 degrees QTc Int : 447 ms Normal sinus rhythm Normal ECG No previous ECGs available Confirmed by TA RUBY DO ([id number]) on 02/27/2021 12:25:43 PM Referred By: Electronically Signed By:TA RUBY DO Transcribed By: MUS Dictated By: Ta Ruby DO 02/27/21 111 Signed By: 02/27/21 1225 [facility] Mikey 02-27-2021 L ----- Specimen: [id number] Received: 02/27/21 Status: EMELI Flores Num: [id number] Spec Type: Surgical Subm Dr: Rigo Gonzalez Jr, MD, FACS Tissues: A Urinary Calculus (URETHRAL STONE) Procedures: Level 1 Gross Patient Age/Sex Location Account Attending Physician ShantalJam pompa Angel 55/M [place] [id number] Rigo Gonzalez Jr, MD, FACS SPEC NUM: [id number] RECD: 02/27/21 STATUS: EMELI FLORES NUM: [id number] RADHA: 02/27/21- SUBM DR: Rigo Gonzalez Jr, MD, FACS ENTERED: 02/27/[address]: LATOYA TYPE: Surgical DEPT: S ORDERED: Level 1 Gross ORDERED: Level 1 Gross Pathological Diagnosis Urethral stone, extraction: - Specimen consistent with urinary calculi, gross examination only (see gross description). Clinical Information Urethral stone Gross Description Received fresh labeled with the patient's name and urethral stone are 2 moy, granular stone fragments that measure 0.6 cm and 0.7 cm. No sections are submitted for microscopic evaluation. Gross exam only. The specimen is sent for stone analysis. (GENEVIEVE/YJ) Microscopic Description Gross examination only CPT Codes 01986 Specimen: [id number] Received: 02/27/21 Status: EMELI Flores Num: [id number] Spec Type: Surgical Subm Dr: Rigo Gonzalez Jr, MD, FACS Tissues: A Urinary Calculus (URETHRAL STONE) Procedures: Level 1 Gross Patient: Jam Toscano [id number] (Continued) Signed (signature on file) Silvestre Poon MD 02/28/21 1427 Normal [facility] COVID-19 [place] 02-25-2021 SARS-CoV-2 (COVID-19) RNA BERNARDO+probe Ql (Unsp spec) Negative Normal Negative [facility] Comment on above: Order Comment: Healt hcare Worker?: N Result Comment: Refe rence: Negative Testing for SARS-CoV-2 by RT-PCR This test was developed and its performance characteristics determined by [employer] ([employer]) and validated at the [facility]. This test has not been FDA cleared or approved. This test has been authorized by FDA under an Emergency Use Authorization (EUA). This test has been validated in accordance with the FDA's Guidance Document (Policy for Diagnostics Testing in Laboratories Certified to Perform High Complexity Testing under CLIA prior to Emergency Use Authorization for Coronavirus Disease-2019 during the Public Health Emergency) issued on February 16, 2020. This test is only authorized for the duration of time the declaration that circumstances exist justifying the authorization of the emergency use of in vitro diagnostic tests for detection of SARS-CoV-2 virus and/or diagnosis of COVID-19 infection under section 564(b)(1) of the Act, 21 U.S.C. 360bbb-3(b)(1), unless the authorization is terminated or revoked sooner. PERFORMED BY: [place] [address] PATHOLOGIST GEOSCIENCE SPECIALIST MARGO MINOR M.D. Performed By: #### C OVID-19 [place] #### [facility] [address] [place] [address] COVID-19 Positive/Negativeon 02-25-2021 COVID-19 Positive/Negative Negative Negative [facility] Comment on above: Reference: NegativeT esting for SARS-CoV-2 by RT-PCRThis test was developed and its performance characteristics determined by [employer] ([employer]) and validated at the [facility]. This test has not been FDA cleared or approved. This test has been authorized by FDA under an Emergency Use Authorization (EUA). This test has been validated in accordance with the FDA's Guidance Document (Policy for Diagnostics Testing in Laboratories Certified to Perform High Complexity Testing under CLIA prior to Emergency Use Authorization for Coronavirus Disease-2019 during the Public Health Emergency) issued on February 16, 2020. This test is only authorized for the duration of time the declaration that circumstances exist justifying the authorization of the emergency use of in vitro diagnostic tests for detection of SARS-CoV-2 virus and/or diagnosis of COVID-19 infection under section 564(b)(1) of the Act, 21 U.S.C. 360bbb-3(b)(1), unless the authorization is terminated or revoked sooner. Otheron 02-25-2021 Coronavirus 2019 PCR Interp N/A [facility] XR ANKLE GENERAL 3V AP/LAT/O BL LTon 02-20-2021 [facility] DXA-AXIAL SKELETONon [facility] Vital Signs Date Time Vital Sign Value Performing Clinician Lucy waggoner 10-05-2024 07:15-0500 Body mass index (BMI) [Ratio] 27.66 kg/m2 Darrian Dubon MD Work Phone: [facility] 10-05-2024 07:15-0500 Body weight 77.7 kg Darrian Dubon MD Work Phone: [facility] 10-05-2024 07:15-0500 Diastolic blood pressure 76 mm[Hg] Darrian Dubon MD Work Phone: [facility] 10-05-2024 07:15-0500 Heart rate 66 /min Darrian Dubon MD Work Phone: [facility] 10-05-2024 07:15-0500 Systolic blood pressure 128 mm[Hg] Darrian Dubon MD Work Phone: [facility] 05-09-2024 10:05-0400 Diastolic blood pressure 78 mm[Hg] Geoffrey Pretty Work Phone: [facility] 05-09-2024 10:05-0400 Heart rate 78 /min Geoffrey Pretty Work Phone: [facility] 05-09-2024 10:05-0400 Systolic blood pressure 121 mm[Hg] Rhedexter Maria De Jesus Work Phone: [facility] 05-09-2024 09:08-0400 Body mass index (BMI) [Ratio] 27.16 kg/m2 Nidia Weston APRN.MANAGER COLLECTION Work Phone: [facility] 05-09-2024 09:08-0400 Body temperature 98.4 [degF] Nidia Weston APRN.CNP Work Phone: [facility] 05-09-2024 09:08-0400 Body weight 76.3 kg Nidia Weston APRN.MANAGER COLLECTION Work Phone: [facility] 05-09-2024 09:08-0400 Diastolic blood pressure 79 mm[Hg] Nidia Weston APRN.MANAGER COLLECTION Work Phone: [facility] 05-09-2024 09:08-0400 Heart rate 89 /min Nidia Weston APRN.MANAGER COLLECTION Work Phone: [facility] 05-09-2024 09:08-0400 SaO2% (BldA) [Mass fraction] 97 % Nidia Weston APRN.MANAGER COLLECTION Work Phone: [facility] 05-09-2024 09:08-0400 Systolic blood pressure 118 mm[Hg] Nidia Weston APRN.MANAGER COLLECTION Work Phone: [facility] 03-14-2024 09:17-0400 Body mass index (BMI) [Ratio] 26.66 kg/m2 Nidia Weston APRN.MANAGER COLLECTION Work Phone: [facility] 03-14-2024 09:17-0400 Body weight 74.9 kg Nidia Weston APRN.MANAGER COLLECTION Work Phone: [facility] 03-14-2024 09:17-0400 Diastolic blood pressure 83 mm[Hg] Nidia Weston APRN.MANAGER COLLECTION Work Phone: [facility] 03-14-2024 09:17-0400 Heart rate 97 /min Nidia Weston APRN.MANAGER COLLECTION Work Phone: [facility] 03-14-2024 09:17-0400 SaO2% (BldA) [Mass fraction] 97 % Nidia Weston APRN.MANAGER COLLECTION Work Phone: [facility] 03-14-2024 09:17-0400 Systolic blood pressure 121 mm[Hg] Nidia Weston APRN.MANAGER COLLECTION Work Phone: [facility] Encounters Encounter Date Encounter Type Care Provider Facility Start: 12-14-2024 ambulatory Luis Antonio García Facility:[facility] Start: 11-21-2024 ambulatory Marcin Altman ty:YOHAN Calhoun Start: 10-05-2024 End: 10-05-2024 ambulatory JOSE L LACKEY Facility:[facility] Start: 10-05-2024 End: 10-05-2024 Office outpatient visit 25 minutes Darrian Dubon MD Work Phone: Rheumatology Comment on above: Seropositive rheumat oid arthritis (HCC) (Primary Dx); Rheumatoid arthritis 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); On sulfasalazine therapy; Ulcerative pancolitis (HCC); Other osteoporosis without current pathological fracture; History of bisphosphonate therapy; Counseling on health promotion and disease prevention Start: 06-13-2024 End: 06-13-2024 ambulatory Salmon Talal Sarmini Facility:[facility] Start: 06-03-2024 End: 06-03-2024 ambulatory Salmon Talal Sarmini Facility:[facility] Start: 05-30-2024 End: 05-30-2024 ambulatory Salmon Talal Sarmini Facility:[facility] Start: 05-09-2024 End: 05-09-2024 ambulatory JOSEL Villalobos ZIYAD Facility:[facility] Comment on above: Other osteoporosis w ithout current pathological fracture (Primary Dx) Start: 05-09-2024 End: 05-09-2024 Patient encounter procedure Nidia Weston TITLE INSURANCE AGENT.MANAGER COLLECTION Work Phone: Rheumatology Comment on above: 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); Vitamin D deficiency; Other osteoporosis without current pathological fracture Start: 05-03-2024 Telephone encounter Ben slater MD Work Phone: Rheumatology Comment on above: Results (Labs) Start: 05-03-2024 End: 05-03-2024 ambulatory DAMION MABRY Not Available Start: 04-11-2024 Telephone encounter Nidia retana TITLE INSURANCE AGENT.MANAGER COLLECTION Work Phone: Rheumatology Comment on above: Patient Update Start: 04-05-2024 End: 04-05-2024 ambulatory DAMION MBARY Not Available Start: 03-14-2024 End: 03-14-2024 Subsequent hospital visit by physician Job [facility] Comment on above: Rheumatoid arthritis 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) [M05.79] Start: 03-14-2024 End: 03-14-2024 ambulatory NIDIA WESTON Facility:[facility] Start: 03-14-2024 End: 03-14-2024 Patient encounter procedure Nidia Weston APRN.CNP Work Phone: Rheumatology Comment on above: 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); Vitamin D deficiency; Other osteoporosis without current pathological fracture; Encounter for medication review and counseling Start: 03-04-2024 End: 03-04-2024 ambulatory Salmon Talal Sarmini Facility:[facility] Start: 03-02-2024 End: 03-02-2024 ambulatory Salmon Talal Sarmini Facility:[facility] Start: 02-26-2024 End: 02-26-2024 ambulatory Salmon Talal Sarmini Facility:[facility] Start: 02-11-2024 Telephone encounter Nidia retana APRN.MANAGER COLLECTION Work Phone: Rheumatology Start: 01-12-2024 End: 01-12-2024 ambulatory JOSE L M HOY Facility:[facility] Start: 01-12-2024 End: 01-12-2024 ambulatory JOSE L M HOY Facility:[facility] Start: 12-11-2023 End: 12-11-2023 ambulatory Salmon Talal Sarmini Facility:[facility] Start: 12-01-2023 End: 12-01-2023 ambulatory JOSE L M HOY Facility:[facility] Start: 12-01-2023 End: 12-01-2023 ambulatory JOSE L M HOY Facility:[facility] Start: 11-27-2023 End: 11-27-2023 Emergency department patient visit Kavon Johnson Facility:[facility] Start: 11-04-2023 End: 11-04-2023 Emergency department patient visit Kavon Johnson Facility:[facility] Start: 10-23-2023 End: 10-23-2023 Emergency department patient visit Zoila Castillo Facility:[facility] Start: 05-04-2023 Telephone encounter Nidia retana APRN.MANAGER COLLECTION Work Phone: Rheumatology Comment on above: Patient Update Start: 05-04-2023 End: 05-04-2023 ambulatory Nidia Weston TITLE INSURANCE AGENT.MANAGER COLLECTION Work Phone: Rheumatology Comment on above: 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); Encounter to discuss test results; Counseling on health promotion and disease prevention; Ulcerative pancolitis (HCC); Vitamin D deficiency; On sulfasalazine therapy; Encounter for medication review and counseling; Other osteoporosis without current pathological fracture; Elevated serum immunoglobulin free light chain level Start: 05-04-2023 End: 05-04-2023 Telemedicine consultation with patient Nidia Gavirialainey MIR.MANAGER COLLECTION Work Phone: [facility] Start: 03-02-2023 End: 03-02-2023 ambulatory Nidia Villalobos Enrico MIR.MANAGER COLLECTION Work Phone: Rheumatology Comment on above: 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); Encounter to discuss test results; Counseling on health promotion and disease prevention; Ulcerative pancolitis (HCC); Other osteoporosis without current pathological fracture Start: 03-02-2023 End: 03-02-2023 Telemedicine consultation with patient Nidia Weston ADEOLA.MANAGER COLLECTION Work Phone: [facility] Start: 02-11-2023 End: 02-12-[address] JOSE L LACKEY . Facility: Start: 01-14-2023 Telephone encounter Nidia Gaviria lainey MIR.MANAGER COLLECTION Work Phone: Rheumatology Comment on above: Outside Lab Results (Vit D ) Start: 12-29-2022 End: 12-29-2022 ambulatory Nidia Weston APRN.MANAGER COLLECTION Work Phone: Rheumatology Comment on above: 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); Vitamin D deficiency; Encounter to discuss test results; Encounter for medication review and counseling; Counseling on health promotion and disease prevention; Other osteoporosis without current pathological fracture Start: 12-29-2022 End: 12-29-2022 Telemedicine consultation with patient Nidia Gavirialainey MIR.MANAGER COLLECTION Work Phone: [facility] Start: 11-24-2022 End: 11-25-[address] JOSE L LACKEY . Facility:[facility] Start: 11-06-2022 End: 11-07-[address] JOSE L LACKEY . Facility:[facility] Start: 09-24-2022 End: 09-24-[address] JOSE L LACKEY . Facility:[facility] Start: 09-23-2022 End: 09-23-2022 Subsequent hospital visit by physician Bone Density [facility] Comment on above: Other osteoporosis w ithout current pathological fracture [M81.8] Start: 02-10-2022 Telephone encounter Darrian Florez MD Work Phone: Rheumatology Comment on above: Results Start: 02-25-2021 End: 02-25-2021 Patient encounter procedure Rigo Gonzalez -Pre-Surgical Testing Start: 02-20-2021 End: 02-20-2021 Subsequent hospital visit by physician Xr [facility] Comment on above: Seropositive rheumat oid arthritis (HCC) [M05.9] Start: 08-22-2020 End: 08-22-2020 Subsequent hospital visit by physician Bone Density [facility] Comment on above: Rheumatoid arthritis 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) [M05.79] Procedures Date Procedure Procedure Detail Performing Clinician Start: 03-14-2024 Radex hand minimum 3 views Nidia Weston APRN.MANAGER COLLECTION Work Phone: Start: 01-12-2023 VITAMIN D 25 HYDROXY Am y Griselda Weston APRN.MANAGER COLLECTION Work Phone: Start: 09-23-2022 Dxa bone density nancy dy 1/> sites axial natalia Dubon MD Work Phone: Start: 02-20-2021 Radex ankle complete minimum 3 views Darrian Dubon MD Work Phone: Start: 08-22-2020 Dxa bone density nancy dy 1/> sites axial natalia Dubon MD Work Phone: Start: 02-10-2019 Adult depression screening assessment Darrian Dubon MD Work Phone: Plan of Treatment Date Care Activity Detail Author Start: 12-01-2026 Diabetes Screening Diabetes Screenin g [facility] Start: 06-06-2025 End: 06-06-2025 Patient encounter procedure Radiology Comment on above: Seropositive rheumat oid arthritis (HCC) [M05.9] Return for May 2025 for RA and OP and review of DXA. Start: 05-23-2025 End: 05-23-2025 ambulatory 05/23/2025 8:00 AM EDT Results Only [facility] [address] [place] [address] [place] [address] labs [facility] Comment on above: labs Start: 05-16-2025 End: 08-15-2025 25-hydroxyvitamin D3 [Mass/volume] in Serum or Plasma VITAMIN D 25 HYDROXY Lab Routine Seropositive rheumatoid arthritis (HCC) Ulcerative pancolitis (HCC) Other osteoporosis without current pathological fracture History of bisphosphonate therapy Expected: 05/16/2025, Expires: 08/15/2025 [facility] Comment on above: Expected: 05/16/2025 , Expires: 08/15/2025 Start: 05-16-2025 End: 08-15-2025 C reactive protein [Mass/volume] in Serum or Plasma C-REACTIVE PROTEIN Lab Routine Seropositive rheumatoid arthritis (HCC) Ulcerative pancolitis (HCC) Expected: 05/16/2025, Expires: 08/15/2025 [facility] Comment on above: Expected: 05/16/2025 , Expires: 08/15/2025 Start: 05-16-2025 End: 08-15-2025 CBC W Auto Differential panel - Blood COMPLETE BLOOD COUNT AND DIFFERENTIAL Lab Routine Seropositive rheumatoid arthritis (HCC) Rheumatoid arthritis 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) On sulfasalazine therapy Ulcerative pancolitis (HCC) Expected: 05/16/2025, Expires: 08/15/2025 [facility] Work Phone: Comment on above: Expected: 05/16/2025 , Expires: 08/15/2025 Start: 05-16-2025 End: 08-15-2025 Collagen crosslinked C-telopeptide [Mass/volume] in Serum or Plasma C TELOPEPTIDE, BETA Lab Routine Other osteoporosis without current pathological fracture History of bisphosphonate therapy Expected: 05/16/2025, Expires: 08/15/2025 [facility] Comment on above: Expected: 05/16/2025 , Expires: 08/15/2025 Start: 05-16-2025 End: 08-15-2025 Renal function 2000 panel - Serum or Plasma RENAL FUNCTION PANEL Lab Routine Other osteoporosis without current pathological fracture History of bisphosphonate therapy Expected: 05/16/2025, Expires: 08/15/2025 [facility] Comment on above: Expected: 05/16/2025 , Expires: 08/15/2025 Start: 02-14-2025 End: 02-14-2025 Patient encounter procedure 02/14/2025 7:20 AM EDT Office Visit Rheumatology [address] [place] [address] Darrian Dubon MD [address] [place] [place] [address] Dubon Rheumatology Comment on above: future with dr. Vince melton Start: 10-05-2024 End: 10-05-2024 Patient encounter procedure 10/05/2024 7:20 AM EST Office Visit Rheumatology [address] [place] [address] Darrian Dubon MD [address] [place] [place] [address] RA Rheumatology Comment on above: RA Start: 09-16-2024 End: 12-16-2024 25-hydroxyvitamin D3 [Mass/volume] in Serum or Plasma VITAMIN D 25 HYDROXY Lab Routine Vitamin D deficiency Other osteoporosis without current pathological fracture Expected: 09/16/2024 (Approximate), Expires: 12/16/2024 [facility] Comment on above: Expected: 09/16/2024 (Approximate), Expires: 12/16/2024 Start: 09-16-2024 End: 12-16-2024 C reactive protein [Mass/volume] in Serum or Plasma C-REACTIVE PROTEIN Lab Routine Rheumatoid arthritis 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) Expected: 09/16/2024 (Approximate), Expires: 12/16/2024 [facility] Work Phone: Comment on above: Expected: 09/16/2024 (Approximate), Expires: 12/16/2024 Start: 09-16-2024 End: 12-16-2024 Erythrocyte sedimentation rate SEDIMENTATION RATE, WESTERGREN Lab Routine Rheumatoid arthritis 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) Expected: 09/16/2024 (Approximate), Expires: 12/16/2024 [facility] Comment on above: Expected: 09/16/2024 (Approximate), Expires: 12/16/2024 Start: 09-16-2024 End: 12-16-2024 Renal function 2000 panel - Serum or Plasma RENAL FUNCTION PANEL Lab Routine Rheumatoid arthritis 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) Other osteoporosis without current pathological fracture Expected: 09/16/2024 (Approximate), Expires: 12/16/2024 [facility] Comment on above: Expected: 09/16/2024 (Approximate), Expires: 12/16/2024 Start: 07-17-2024 Influenza vaccination C [facility] Start: 05-09-2024 End: 05-09-2024 ambulatory 05/09/2024 9:30 AM EDT [facility] [address] [place] [address] Return labs in 1 month, for reclast and ov in 1-2 months after labs Infusion Comment on above: Return labs in Thu, for reclast and ov in 1-2 months after labs Start: 05-09-2024 End: 05-09-2024 Patient encounter procedure 05/09/2024 9:00 AM EDT Office Visit Rheumatology [address] [place] [address] Nidia Weston, TITLE INSURANCE AGENT.MANAGER COLLECTION [address] [place] [address] Return labs in 1 month, for reclast and ov in 1-2 months after labs Rheumatology Comment on above: Return labs in Thu, for reclast and ov in 1-2 months after labs Start: 2024 RSV Vaccine (1 - 1-d ose 60+ series) RSV Vaccine (1 - 1-dose 60+ series) [facility] Start: 2024 RSV Vaccine (1 - Ris k 60-74 years 1-dose series) RSV Vaccine (1 - Risk 60-74 years 1-dose series) [facility] Start: 04-13-2024 End: 07-13-2024 25-hydroxyvitamin D3 [Mass/volume] in Serum or Plasma VITAMIN D 25 HYDROXY Lab Routine Rheumatoid arthritis 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) Vitamin D deficiency Expected: 04/13/2024 (Approximate), Expires: 07/13/2024 [facility] Comment on above: Expected: 04/13/2024 (Approximate), Expires: 07/13/2024 Start: 04-13-2024 End: 07-13-2024 C reactive protein [Mass/volume] in Serum or Plasma C-REACTIVE PROTEIN Lab Routine Rheumatoid arthritis 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) Expected: 04/13/2024 (Approximate), Expires: 07/13/2024 [facility] Comment on above: Expected: 04/13/2024 (Approximate), Expires: 07/13/2024 Start: 04-13-2024 End: 07-13-2024 Erythrocyte sedimentation rate SEDIMENTATION RATE, WESTERGREN Lab Routine Rheumatoid arthritis 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) Expected: 04/13/2024 (Approximate), Expires: 07/13/2024 [facility] Comment on above: Expected: 04/13/2024 (Approximate), Expires: 07/13/2024 Start: 04-13-2024 End: 07-13-2024 Renal function 2000 panel - Serum or Plasma RENAL FUNCTION PANEL Lab Routine Rheumatoid arthritis 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) Expected: 04/13/2024 (Approximate), Expires: 07/13/2024 [facility] Work Phone: Comment on above: Expected: 04/13/2024 (Approximate), Expires: 07/13/2024 Start: 04-13-2024 End: 04-13-2025 XR Hand - bilateral PA and Lateral and Oblique XR HAND GENERAL 3V PA/LAT/OBL BILATERAL Radiology Routine Rheumatoid arthritis 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) Expected: 04/13/2024 (Approximate), Expires: 04/13/2025 [facility] Comment on above: Expected: 04/13/2024 (Approximate), Expires: 04/13/2025 Start: 11-16-2023 Behavioral Health Screening Behavioral Health Screening [facility] Start: 11-16-2023 Depression Assessment [facility] Start: 08-22-2023 DIABETES SCREEN DIABETES SCREEN [facility] Start: 07-17-2023 Influenza vaccination [facility] Start: 07-04-2023 End: 09-03-2023 25-hydroxyvitamin D3 [Mass/volume] in Serum or Plasma VITAMIN D 25 HYDROXY Lab Routine Other osteoporosis without current pathological fracture Expected: 07/04/2023 (Approximate), Expires: 09/03/2023 [facility] Work Phone: Comment on above: Expected: 07/04/2023 (Approximate), Expires: 09/03/2023 Start: 07-04-2023 End: 09-03-2023 MONOCLONAL PROT UR W/INTERP MONOCLONAL PROT UR W/INTERP Lab Routine Elevated serum immunoglobulin free light chain level Expected: 07/04/2023 (Approximate), Expires: 09/03/2023 [facility] Work Phone: Comment on above: Expected: 07/04/2023 (Approximate), Expires: 09/03/2023 Start: 07-04-2023 End: 09-03-2023 Renal function 2000 panel - Serum or Plasma RENAL FUNCTION PANEL Lab Routine Other osteoporosis without current pathological fracture Expected: 07/04/2023 (Approximate), Expires: 09/03/2023 [facility] Work Phone: Comment on above: Expected: 07/04/2023 (Approximate), Expires: 09/03/2023 Start: 12-29-2022 End: 02-28-2023 25-hydroxyvitamin D3 [Mass/volume] in Serum or Plasma VITAMIN D 25 HYDROXY Lab Routine Vitamin D deficiency Expected: 12/29/2022, Expires: 02/28/2023 [facility] Work Phone: Comment on above: Expected: 12/29/2022 , Expires: 02/28/2023 Start: 11-16-2022 DEPRESSION ASSESSMENT [facility] Start: 07-17-2022 Influenza vaccination INFLUENZA (#1) [facility] Start: 07-17-2021 Influenza vaccination INFLUENZA (#1) [facility] Start: 04-15-2021 COVID-19 VACCINE (2 - Starr risk 3-dose series) COVID-19 VACCINE (2 - Starr risk 3-dose series) [facility] Start: 04-15-2021 COVID-19 VACCINE (2 - Starr risk series) COVID-19 VACCINE (2 - Starr risk series) [facility] Start: 05-03-2020 PNEUMOCOCCAL (3 - PPSV23 if available, else PCV20) PNEUMOCOCCAL (3 - PPSV23 if available, else PCV20) [facility] Start: 05-03-2020 PNEUMOCOCCAL (3 - PPSV23 or PCV20) PNEUMOCOCCAL (3 - PPSV23 or PCV20) [facility] Start: 05-03-2020 Pneumococcal vaccination Pneumococcal Vaccine (3 of 3 - PPSV23 or PCV20) [facility] Start: 02-11-2020 Adult depression screening assessment DEPRESSION SCREENING [facility] Start: 2019 PROSTATE CANCER SCREENING DISCUSSION PROSTATE CANCER SCREENING DISCUSSION [facility] Start: 2019 Prostate specific antigen measurement Prostate Cancer Screening Discussion [facility] Start: 2014 SHINGRIX VACCINE (1 of 2) SHINGRIX VACCINE (1 of 2) [facility] Start: 2009 COLOGUARD (FIT-DNA) COLOGUARD (FIT-D NA) [facility] Start: 2009 Colonoscopy COLONOSCOPY [facility] Start: 2009 COLORECTAL CANCER SCREENING COLORECTAL CANCER SCREENING [facility] Start: [address] COLONOGRAPHY [facility] Start: 2009 FECAL OCCULT BLOOD FECAL OCCULT BLOO D [facility] Start: 2009 Screening for malign ant neoplasm of colon [facility] Start: 2009 SIG[facility]COPY [facility] Start: 1999 Lipid panel Lipid Screening [facility] Start: 1999 LIPID SCREEN LIPID SCREEN [facility] Start: 1983 SHINGRIX VACCINE (1 of 2) SHINGRIX VACCINE (1 of 2) [facility] Start: 1983 Urine microalbumin profile [facility] Start: 1982 Anxiety Screening Anxiety Screening [facility] Start: 1982 Depression Screening Depression Scre ening [facility] Start: 1982 HIV SCREENING HIV SCREENING [facility] Start: 1982 HIV screening HIV Screening [facility] Start: 1982 MMR Vaccine (1 of 2 - Risk 2-dose series) MMR Vaccine (1 of 2 - Risk 2-dose series) [facility] Start: 1974 Meningococcal B Vaccine: Consider Based On Risk (1 of 4 - Increased Risk) Meningococcal B Vaccine: Consider Based On Risk (1 of 4 - Increased Risk) [facility] End: 11-04-2025 BD DXA TRABECULAR BONE SCORE (TBS) BD DXA TRABECULAR BONE SCORE (TBS) Radiology Routine Seropositive rheumatoid arthritis (HCC) Ulcerative pancolitis (HCC) Other osteoporosis without current pathological fracture History of bisphosphonate therapy 1 Occurrences starting 10/05/2024 until 11/04/2025 [facility] Comment on above: 1 Occurrences starti ng 10/05/2024 until 11/04/2025 End: 11-04-2025 DXA Skeletal system.axial Views for bone density DXA-AXIAL SKELETON Radiology Routine Seropositive rheumatoid arthritis (HCC) Ulcerative pancolitis (HCC) Other osteoporosis without current pathological fracture History of bisphosphonate therapy 1 Occurrences starting 10/05/2024 until 11/04/2025 [facility] Comment on above: 1 Occurrences starti ng 10/05/2024 until 11/04/2025 [facility] Immunizations Immunization Date Immunization Notes Care Provider Feng diaz 06-09-2022 zoster vaccine recombinant Nidia Weston APRN.MANAGER COLLECTION Work Phone: [facility] 03-17-2022 zoster vaccine recombinant Nidia Weston APRN.MANAGER COLLECTION Work Phone: [facility] 09-27-2020 Influenza, injectabl e, Madin [place] Canine Kidney, preservative free, quadrivalent Nidia Weston APRN.MANAGER COLLECTION Work Phone: [facility] 09-27-2020 influenza virus vacc ine, unspecified formulation Nidia Weston APRN.MANAGER COLLECTION Work Phone: [facility] 10-28-2019 Influenza, injectabl e, Madin [place] Canine Kidney, quadrivalent with preservative Darrian Dubon MD Work Phone: [facility] 08-29-2019 influenza, injectabl e, quadrivalent, preservative free Nidia Gaviriaick DANYEL Work Phone: [facility] 08-15-2016 influenza, injectabl e, quadrivalent, preservative free Darrian Dubon MD Work Phone: [facility] 12-08-2015 hepatitis A and hepa titis B vaccine Darrian Dubon MD Work Phone: [facility] 11-01-2015 pneumococcal conjuga te vaccine, 13 valent Darrian Dubon MD Work Phone: [facility] 07-31-2015 influenza, seasonal, injectable, preservative free Darrian Dubon MD Work Phone: [facility] 05-31-2015 hepatitis A and hepa titis B vaccine Darrian Dubon MD Work Phone: [facility] 05-03-2015 hepatitis A and hepa titis B vaccine Darrian Dubon MD Work Phone: [facility] 05-03-2015 pneumococcal polysaccharide vaccine, 23 valent Darrian Dubon MD Work Phone: [facility] Payers Date Payer Category Payer Medicare DEVOTED MEDICARE DEVOTED HEALTH [id number] 2021-Present [phone] [address] [place] [address] [id number] 2021 Unknown [id number] 2011 Medicare [id number] 1964 Unknown [id number] 2.16.840.1.827054.3.579. 2.593 1964 Unknown [id number] 2.16.840.1.888618.3.579. 2.593 1964 Unknown [id number] 2.16.840.1.576829.3.579. 259 1964 Unknown [id number] .16.840.1.342025.3.579. 2 1964 Unknown [id number] 2.16.840.1.108920.3.579. 2.1258 1964 Unknown [id number] 2..840.1.774899.3.579. 2.1258 1964 Unknown [id number] 2.16.840.1.177348.3.579. 2 1964 Unknown [id number] 2..840.1.075699.3.579. 2 1964 Unknown [id number] 2.840.1.931916.3.579. 1964 Unknown [id number] 840.1.043105.3.579. 1964 Unknown [id number] 2.840.1.634051.3.579. 1964 Unknown [id number] 840.1.598351.3.579. 1964 Unknown [id number] 2..840.1.616388.3.579. 1964 Unknown [id number] 840.1.223640.3.579. 1964 Unknown [id number] .840.1.645315.3.579. 2 1964 Unknown [id number] ..840.1.369691.3.579. 1964 Unknown [id number] .840.1.754071.3.579. 2 1964 Unknown [id number] 840.1.988134.3.579. 1964 Unknown [id number] 2.16.840.1.834905.3.579. 2.727 1964 Unknown [id number] 2.16.840.1.796255.3.579. 2.727 Private Health Insurance Self Pay [id number] Self-pay Self Pay [id number] Social History Date Type Detail Facility Tobacco smoking stat us [facility] Unknown if ever smoked [facility] Start: 1965 Sex Assigned At Male F [facility] Start: 01-24-2020 End: 12-01-2023 Tobacco smoking status MOIS Ex-smoker [facility] Start: 01-24-2020 End: 12-01-2023 Tobacco use and exposure Smokeless tobacco non-user [facility] Start: 02-20-2021 End: 05-09-2024 Alcohol intake Lifetime non-drinker (finding) [facility] Start: 01-24-2020 History SDOH Alcohol Frequency 1 [facility] Start: 01-24-2020 End: 12-01-2023 Tobacco Comment quit in 2011 [facility] Start: 1965 Sex Assigned At Not on file [facility] Start: 01-19-2022 End: 01-29-2022 Exposure to SARS-CoV-2 (event) Unable to assess [facility] History of tobacco use Current smoker [facility] Start: 01-24-2020 End: 05-04-2023 History of Social function [facility] Start: 01-24-2020 End: 05-04-2023 Alcohol Use Disorder Identification Test - Consumption [AUDIT-C] [facility] How often to you hav e a drink containing alcohol? Never [facility] Average Number of Drinks Not on file [facility] Start: 07-23-2020 End: 02-20-2021 Exposure to SARS-CoV-2 (event) Not sure [facility] Goals Date Patient Goal Desired Activity /State Clinical Notes 08-22-2020 to 10-05-2024 Patient InstructionsAl-Darrian Valente MD - 10/05/2024 7:42 AM Teresa Andres RN - 05/09/2024 9:49 AM EDTPatient InstructionsNidia Weston APRN.JOSE - 05/09/2024 9:00 AM EDTPatient Instructions Note Date & Type Note Facility 10-05-2024 Instructions Darrian Dubon MD - 10/05/2024 7:56 AM EST -PLEASE NOTE THAT WE REVIEW ALL YOUR TEST RESULTS AT YOUR NEXT FOLLOW UP VISIT WITH YOU. IF ANY ABNORMAL LAB REQUIRES SOONER ATTENTION, WE WILL CONTACT YOU. -If you have signed up on [employer], we will release your test results through [employer]. I wish you the best of health and wellness. -Please take care and stay safe and healthy. Consume a healthy diet, stay well hydrated, sleep well, be happy, improve stress (include meditation and regular exercise), ensure adequate vitamin D. Spend some time in nature, around trees and [place] (forest bathing). Spend time outdoors next to greenery on a Jose day to benefit from the healing benefits of the Near Infra Red light of the sun that reflects on greenery (research showing benefits to cellular healing and benefits against covid-19 infection). These have been shown to help with overall health and wellbeing, stress, inflammation and in promoting a healthy immune system. I have included additional information below. -Continuous follow up with Primary care physician, for cardiovascular disease prevention, for age appropriate cancer screening and routine health maintenance and wellness, and infection precautions and age appropriate immunization, is recommended. Please review the information I provided you. Instructions and Recommendations: Please complete the lab work I ordered for early 05/2025 About 1 to 2 weeks before your apt with me The orders are good for 60 days, after that they will . - The blood work needs to be completed as a morning fasting test It is important to note that the fasting blood test is required for the CTX (C telopeptide beta). This blood test needs to be done as a fasting morning blood test, and needs to be done the same time of the day, every time you get that blood test. So for example, you can have it done at around 8 am at the lab, every time you get it done. Please make sure you follow these instructions as it affects the results and interpretation. The CTX is a bone loss marker. Please complete that blood test before 10 am. Please fast after dinner, for about 10 to 12 hrs before the test. Only water is permitted during this fast, no other food or beverages please. - Continue on the Vitamin D: 5000 international units once daily with meals Vitamin B12: 500 to 1000 mcg once daily Turmeric once daily as you have been doing (avoid curcumin extract as it can lead to liver adverse effect) - Please take your vitamin D with food. You can take it with a handful of raw unsalted Almonds or with a meal Vitamin D is a fat soluble vitamin that requires fat in the food to be well absorbed. We recommend healthy fat, such as with nuts, seeds, avocados, olives or with a healthy meal. Also you multivitamin may contain vitamin D. Spending up to 30 minutes in the sun during Summer and late Spring can provide natural vitamin D to the uncovered skin (arms, legs) - Your calcium can be sufficient in your diet. Healthy food that are rich in calcium include: nuts, seeds, legumes/beans, peas, dark green leafy vegetables, plant based milk Additional calcium rich foods listed below - Soaking Almonds overnight in the fridge with drinking water, can help with softening the almonds and improved absorption of the almonds. Please be careful not to break a tooth with dry raw almonds, or other hard nuts or seeds. If your lab work shows insufficient calcium or you are unable to consume sufficient foods rich in calcium, then a calcium supplement is recommended, such as calcium citrate. - You can track your nutrition and calcium intake on www.[employer] This provides macro and micronutrient intake and requirements. - You can track your calcium intake on [employer] or any other calcium tracker of your choice. If you are not getting about 1200 mg of calcium daily, you will need to add a calcium supplement, such as calcium citrate to supplement you daily calcium so you can achieve your total 1200 mg daily See additional information below on calcium. Please continue following with your dentist every 6 months If you are on Osteoporosis medication, please inform your dentist as invasive dental work with these medications can increase one's risk for ONJ (osteonecrosis of the jaw). Please continue with good oral hygiene and dental care - One of the most important things you can do for your bone density is to exercise on a regular basis and especially weight bearing and strength training exercises and avoid falls. For Osteoporosis exercises: -We also offer one on one PT with our physical therapist who specialize in Osteoporosis Program. If you would like to be scheduled, let us know and we can assist you with an in person apt. -You can also follow along with this video on youtube and copy and paste this link: [email or web address] This is done by a Physical Medicine and Rehab doctor who is a theatre arts professor in [facility] [employer] [facility] [employer]. She completed a PhD at the [facility]. I hope you find it helpful. Please take precautions and start gradual when starting a new exercise program. - A healthy diet coupled with adequate weight bearing exercise and managing stress are necessary for optimal bone health. Important vitamins and minerals for your bone health include: - Calcium and vitamin D (see information above) - Vitamin K2 (see information below on K2) - Magnesium (see information below) - Zinc (beans, especially chickpeas) - Manganese (whole grains, nuts, pecans and hazelnuts, legumes, soybeans and other beans) - [place] (potatoes, avocados, almonds, peanuts) - Chromium (broccoli, grape juice, whole-grain products) - Phosphorous (beans, nuts, certain fish) - Potassium (see information below) Most of these are available in a healthy well balanced diet. Vitamin D can be available in mushrooms that are grown in the sun, but most effective way to get sufficient vitamin D is through sun shine and supplements. - Ensuring sufficient nutrition intake and healthy plant proteins Soy beans, nuts and seeds and vegetables have been reported to help with bone density and osteoporosis. - Soy has been reported to help decrease bone loss and improve bone formation. Soy contains genistein (a naturally occurring isoflavone in soy) which has multiple health benefits, among which are towards bone density: -SUDHEER Carrillo., Ivory, NYLA., Flores, PY. et al. Soy isoflavone intake inhibits bone resorption and stimulates bone formation in menopausal women: meta-analysis of randomized controlled trials. Eur J Clin Nutr 62, 155-161 (2008). https://doi.org/10.1038/sj.ejcn.167900 8 -Clyde Rosa, Trisha Lara, Sakuludomkan, W. et al. Isoflavone intervention and its impact on bone mineral density in postmenopausal women: a systematic review and meta-analysis of randomized controlled trials. Osteoporos Int (2022). https://doi.org/10.1007/y57500-393-474 44-y -Jack Finch, Na Tirsha Reyes, Andrez Grant. et al. Effects of isoflavone interventions on bone mineral density in postmenopausal women: a systematic review and meta-analysis of randomized controlled trials. Osteoporos Int 31, 8746-6483 (2020). https://doi.org/10.1007/w28899-915-098 76-z - Benefits of consuming soy in whole foods are listed in this article at the PCR website: https://www.pcrm.org/good-nutrition/nu trition-information/gpd-evc-qrrbuq - Prunes have been reported to help with bone density and inflammation, and are also beneficial for the gut microbiome and constipation. -The Prune Study article: Perrin, Sivakumar ALDANA, Jordy NI, Edouard H, Flor KJ, Trey Watters, Praveena MG, Nakvivi CH, Stewart C. Prunes preserve hip bone mineral density in a 12-month randomized controlled trial in postmenopausal women: the Prune Study. Am J Clin Nutr. 2021 6;116(4):897-910. doi: 10.1093/ajcn/teoc735. PMID: 08480222. -Benefit to bone density and inflammation: Hebert WYMAN, Perrin, Glory SOLARES, Sivakumar ALDANA, Trey CUBA. The Role of Prunes in Modulating Inflammatory Pathways to Improve Bone Health in Postmenopausal Women. Adv Nutr. 2021 2;13(5):0795-4592. doi: 10.1093/advances/ipas779. PMID: 22458211; PMCID: [id number]. - Information on Vitamin K2: more recently it is advised to ensure you have sufficient intake of vitamin K2 for bone health. Vitamin K2 are menaquinones, and it has been reported that the menaquinone-7 (MK7) being superior to the (menaquinone-4) MK4. If your multivitamin does not contain vitamin K2 or you do not take a multivitamin, you can add vitamin K2 supplement (MK7 form). This has been reported to help with bone density and calcium metabolism. Look for a supplement that contains vitamin K2 in the form of menaquinone-7, or MK-7. Vitamin K2 dose: 45 to 100 mcg (this is micrograms) once daily with meals. This is a fat soluble vitamin and needs to be taken with a meal that contains a fat (healthy fat), as with vitamin D. We are unable to recommend higher doses at this time, especially higher than 150 mcg daily. Although higher doses have been used in research studies, we still do not have definite guidelines for safest highest dose. Also, do not take high dose, as this is a fat soluble vitamin and can be toxic. Vitamin K2 can come separate or with vitamin D or other bone support supplements, over the counter and also available online for purchase. Vitamin K2 is not typically available in high amounts in healthy foods, with the exception of Natto (a traditional Micronesian food made from fermented soybeans) has high amounts of vitamin K2 (MK7). Please avoid vitamin K1, as this can raise the risk of blood clots If you are on coumadin or warfarin you should not take vitamin K. Please discuss with your prescriber. Additional information on vitamin K is available at the NIH website: https://ods.od.nih.gov/factsheets/Tiffaine minK-HealthProfessional/#h2 -Magnesium rich foods include: raw nuts and seeds (almonds, cashews), peas, corn, legumes, beans (black beans, edamame soy, lentils), dark chocolate, avocados, peanut butter, leafy vegetables, kale, spinach, broccoli, baked potatoes with skin, oatmeal, brown rice, bananas... -Potassium rich foods/beverages: spinach, sweet potatoes, avocados, coconut water, dried fruits (dates and apricots), bananas, beans, acorn squash, mushrooms, oranges, potato skin. Caution: If you have kidney failure of high blood levels of potassium, you may be asked to avoid high amounts of these foods, please consult with your Medical And Health Services Manager or Physician first. Review of Osteoporosis medications Medications that prevent bone loss and Osteoporosis fractures: -Bisphosphonates are a group of medications that are available as pills (oral) or injected/infused in the vein as intravenous (IV) -Oral bisphosphonates (such as Actonel/risedronate, Boniva/ibandronate, Fosamax/alendronate), these are taken either once a week or once a month (depending on med chosen), first thing in the morning on an empty stomach with a glass of pure water and would need to stay upright and avoid food or other beverages for 30 to 45 minutes, with special instructions to follow. This is to allow the medication to be properly absorbed. The duration of treatment would be limited to 5 yrs, when possible, to prevent increased risk for atypical fracture of femur. Patients who are unable to swallow pills or have trouble swallowing or have a gastrointestinal disease would not be candidates for these medications. An intravenous form of bisphosphonate can be considered per below. -IV Reclast (zoledronic acid), is 5 mg intravenous infusion given once a year for Osteoporosis and once every two years for Osteopenia. This is a 15 to 20 minute infusion given at our infusion center. For that infusion, it would be important to have completed any necessary dental work and continue following with your dentist every 6 months and the recommended lab work we ordered. You would need to be well hydrated to insure good kidney function. Please insure adequate hydration with water, about 6 to 8 cups of water, the day before, the day of the infusion and the day after. Please avoid dehydration in general. Some people experience flu like symptoms and low grade fever, after the infusion. This is usually self limited and will resolve. The recommended treatment for symptom relief is taking acetaminophen/Tylenol two extra strength tablets (500mg each) every 6 hours until this has resolved, usually does not last more than 3 days. IV Reclast once a year is usually limited to no more than 3 yrs, to prevent increased risk for atypical fracture of femur. Bisphosphonates cannot be prescribed to patients who have very low kidney function and those with untreated dental problems. Reviewed importance of regular dental care, follow up with dentist and good oral hygiene We also reviewed risk of reported ONJ (osteonecrosis of the jaw) and atypical fracture of femur. -Subcutaneous Prolia: this is one injection every 6 months, given by the nurse in the office. This medication is given detention, indefinitely. Prolia should not be discontinued without proven back up therapy, due to incr risk of vert fractures after withdrawing Prolia. Recent research findings recommend that Prolia if started and continued past 1 to 2 yrs, may need to be indefinitely, for now, until new studies show effective transition therapy. Advised that Prolia should not be discontinued due to reported increased risk of bone loss and vertebral fractures after withdrawing Prolia. Multiple studies have looked into transition therapy. Recent study from [facility] Slim et al, 04/11/2020 (PMID: [id number].The study is ongoing, clinicaltrials.gov; [id number]), reported one infusion of IV Reclast did not prevent bone loss after Prolia was discontinued. At this time, would need to await additional studies on what is the best approach and strategy, for if and when, Prolia is no longer necessary. For patients who have been on Prolia past 2 yrs, bone loss still occurred despite an infusion with zoledronic acid following discontinuation of Prolia. Some patients required another infusion of zoledronic acid after 6 months from their first one. In some patients Prolia would need to be continued indefinitely. The 10 year data on Prolia are reassuring in terms of safety and efficacy. The current recommendations is that if Prolia is continued past 2 yrs, it is recommended to continue on it indefinitely, meaning lifelong. Infection precautions are recommended. Patients who experience frequent or serious UTI's (urinart tract infections), are not candidates for Prolia. Indication for lab work prior to Prolia injections and importance of continued follow up. Risks, benefits, alternatives, reported side effects, indication, limitations/expectation of medication(s) were discussed with patient. Written information provided for patient review. Reviewed importance of regular dental care, follow up with dentist and good oral hygiene We also reviewed risk of reported ONJ (osteonecrosis of the jaw) and atypical fracture of femur. Medications that build bone density and prevent osteoporosis fractures: -Subcutaneous Forteo or Tymlos, once daily injections at home: these are for 2 yrs and then will need to transition to anti-resorptive therapy, such as a bisphosphonate or Prolia after that, based on guidelines. These medications are contraindicated in certain conditions, such as hyperparathyroidism, hypercalcemia, Paget's disease of the bone, radiation therapy to the bones, etc... Medication that both prevents bone loss and builds bone density and prevents Osteoporosis fractures: -Subcutaneous Evenity (romosozumab, an anti-sclerostin monoclonal antibody). This is a monthly subcutaneous injection (2 injections every visit, by the nurse). This is given for 1 year and if further treatment is required after that, we would transition to Prolia or a bisphosphonate. It has listed CV risk and warning that it should not be initiated in patients who have had an AK or stroke in the preceding year or those considered high risk. We may need a clearance from a Trim Mounter prior to proceeding with this medication in patients who have a cardiovascular disease history. This is only prescribed for 1 year and if treatment for Osteoporosis is still warranted, would need to switch to anti-resorptive therapy, according to recommendations. Other less potent Osteoporosis medications, such as evista and miacalcin have not been proven to prevent non-vertebral fractures It is important to continue with regular dental care, follow up with dentist and good oral hygiene Osteoporosis medications may increase the risk of ONJ osteonecrosis of the jaw bone) and atypical fracture of femur (this is discussed above). This applies to all except Forteo and Tymlos. To minimize risk of ONJ, it is important to follow up with your dentist every 6 months. Risks, benefits, alternatives, reported side effects, indication, limitations/expectation of medication(s) were discussed with patient. Written information provided for patient review. - You can find additional information on Osteoporosis and the different available medications at the [employer] website at: [email or web address]/I-Am-A/Ernesto wyatt-Caregiver/Diseases-Conditions/Os teoporosis - Additional information on Bone Health and Healthy Lifestyle listed below. - I recommend following a healthy lifestyle. You can find additional information below. I recommend this to all my patients, as I have seen convincing scientific evidence, and seen the results in my practice, of the benefits of this healthy lifestyle to overall health and wellness. I hope you will find this beneficial as well. - Please review this information on bone health GENERAL INFORMATION ON BONE HEALTH : -Bone Density testing (DXA scan) as recommended in 2 yrs from last test ,on the same machine when possible. -Vitamin D supplementation is recommended, unless blood levels are sufficient. Recommended daily dose of 1000 to 2000 IU (international units) total a day, or the dose necessary to achieve a Vitamin D 25-OH blood level of >31 and preferably closer to 40-60 ng/mL. Vitamin D pills are available over the counter. -Recommended daily dose of calcium: 1200mg total a day in divided doses. Calcium is usually sufficient in our regular diet, also available in multivitamins. Patients on certain dietary restrictions or those unable to meet their daily calcium by diety alone, may require calcium supplements. For patient with history of calcium kidney stones, Calcium Citrate would be the recommended supplement. It is recommended to avoid caclium carbonate supplement in this case, as these may increase risk of calcium kidney stones. The after visit summary has information on dietary calcium and instructions on reading calcium label and converting the %DV to mg. When you read a food label and you see calcium reported as DV %, add a zero and this will provide you with the approximate mg value of the calcium content in this food. For example, if a glass of almond milk is labeled as 40% calcium DV, then this contains 400 mg of calcium. For additional information, please see references provided. -Regular weight-bearing and muscle-strengthening exercise -Avoidance of tobacco smoking, excessive alcohol intake and excessive caffeine intake. -Fall and fracture precautions -It is recommend to continue regular follow up visits with your dentist every 6 months, and continue with good oral hygiene. Calcium: If your diet is sufficient in Calcium rich food, you will not need calcium supplement. Calcium Citrate is the preferred calcium if you have had kidney stones. Daily recommended calcium dose: 600mg twice a day with meals. Adequate calcium ingestion is essential for maintaining healthy bones. The recommended dose daily intake of calcium varies depending on individual needs but is usually between 1200 and 1500mg daily, preferably around 1200mg a day in divided dose (not all taken at once). This is equivalent to about five 8oz glasses of milk per day. Many foods are rich in calcium and they include: - Plant based, non-dairy, calcium rich products, include nuts, almond milk, beans, lentils - Vegetables and Fruit: bok-marin, turnips, broccoli, kale, collards, - Dairy products: milk, cheese, yogurt, ice-cream - Fish products: canned salmon, sardines and shrimp - Cereals and nuts: almonds, sesame seeds, fortified cereals and oatmeal - Other foods: fortified orange-juice, figs, soybeans, other beans and eggs. If you have a low calcium diet and cannot tolerate calcium-rich foods, many supplements are available today. Your pharmacist can help you choose the one which best suits your needs. A few tips on supplements: - They should be easy to swallow - They should dissolve easily in cup of vinegar in < 15 minutes. - Count the ELEMENTAL calcium mgs. E.g. Calcium 499mg may have only 221mg of elemental Calcium. - Calcium citrate is the calcium supplement to take if you have had kidney stones and unable to meet your calcium requirements from food/diet alone. - There is such a variety today that it is best to bring in the bottle to your doctor to show them exactly what you are taking. Lastly too much calcium can be bad for you. Recent studies show extra supplements may increase your risk of kidney stones or cause high calcium levels in some people. You should discuss how much you should be taking with your doctor before starting them. Further Information is available from the following resources: www.nof.org (National Osteoporosis Foundation) http://www.osteo.org/osteolinks.asp National Institutes of Health: 3-464-615-BONE The Calcium Information [place]: Non-Dairy, Plant based Milk, can contain in1 glass up to 450 mg of calcium (300 to 450 mg) Exampled include Oat Milk, Flax Milk, [place] Milk, Cashew Milk, Soy Milk, Peas Milk Examples of Food Sources of Calcium from NIH Food Milligrams (mg) per serving Percent DV* Soymilk, calcium-fortified, 8 ounces 299 30 [place] juice, calcium-fortified, 6 ounces 261 26 Tofu, firm, made with calcium sulfate, cup* 253 25 Tofu, soft, made with calcium sulfate, cup* 138 14 Axnmw-mz-mts cereal, calcium-fortified, 1 cup 100-1,000 10-100 Turnip greens, fresh, boiled, cup 99 10 Kale, raw, chopped, 1 cup 100 10 Kale, fresh, cooked, 1 cup 94 9 Egyptian cabbage, bok marin, raw, shredded, 1 cup 74 7 Bread, white, 1 slice 73 7 Tortilla, corn, yelvz-sy-shtw/marshall, one 6 diameter 46 5 Tortilla, flour, koonf-oc-hzuv/marshall, one 6 diameter 32 3 Bread, whole-wheat, 1 slice 30 3 Broccoli, raw, cup 21 2 * DV = Daily Value. DVs were developed by the U.S. Food and Drug Administration to help consumers compare the nutrient contents among products within the context of a total daily diet. The U.S. Department of Agriculture s ([employer] s) Nutrient Database Web site lists the nutrient content of many foods and provides comprehensive list of foods containing calcium arranged by nutrient content and by food name. *Calcium content varies slightly by fat content; the more fat, the less calcium the food contains. * Calcium content is for tofu processed with a calcium salt. Tofu processed with other salts does not provide significant amounts of calcium. You could acces this information online at: http://ods.od.nih.gov/factsheets/Calci -HealthProfessional/ Vitamin D: Vitamin D3= cholecalciferol, available over the counter. Dose recommended 800 to 1000 international units daily with a meal; Certain patients require 9069-8253 international units daily and in patients deficient in Vitamin D, they require higher dosages. Certain patient requires higher dose, depending on their Vit D blood levels. Vitamin D is essential for calcium metabolism. It is really a hormone produced mainly in your skin after exposure to sunlight. Vitamin D helps you absorb calcium from your stomach and kidneys and incorporates it into your bones. Studies show approximately 50% of [place] men and women are vitamin D deficient in the winter. Milder cases of vitamin D are usually asymptomatic so the only way to know you have a problem is to have a blood level checked. More severe cases can cause osteomalacia (a.k.a. rickets) which can result in bone pain, weak bones and several abnormal laboratory tests and also weak muscles (a.k.a. myopathy). When this happens, your bones lose a lot of their calcium stores as the body tries to regulate the calcium required by other tissues. Prolonged deficiency can lead to severe bone disorders and fractures. Unlike calcium, dietary sources of vitamin D are rare, limited to a few fish oils particularly cod-liver oil, other fortified foods and egg yolks. and most are unhealthy. Natural source of vitamin D is through sunshine. This is usually during jose seasons, for example a 30 minute exposure to sunshine. Some people are unable to be exposed to the sun due to skin condition. Often supplementation is needed. Many multivitamins contain some vitamin D and vitamin D alone preparations are now available in several forms. The recommended daily intake of vitamin D used to be 400 and 800 international units, however, it is now known that larger amounts are needed, as discussed above. Your doctor can prescribe prescription strength vitamin D for you if necessary, if you have marked deficiency or diseases of the liver or kidney. Supplementation in patients with severe deficiency can stabilize or improve bone mineral density and in frail elderly persons, may reduce their risk of falling. Additional Information is available from: [facility] Osteoporosis Information: https://my.j.w. [facility].org/departm ents/orthopaedics-rheumatology/depts/o steoporosis-metabolic The Bone Health and Osteoporosis Foundation (formerly the National Osteoporosis Foundation) : https://www.bonehealthandosteoporosis. org International Osteoporosis Foundation: https://www.osteoporosis.foundation http://ods.od.nih.gov/factsheets/vitam ind.asp [place] [facility] of [facility]: 7-646-364-BONE The Calcium Information [place]: I recommend following a healthy lifestyle. You can find additional information below. I recommend this to all my patients, as I have seen convincing scientific evidence, and seen the results in my practice, of the benefits of this healthy lifestyle to overall health and wellness. I hope you will find this beneficial as well. A whole plant based diet and healthy lifestyle have been reported to be optimal for health in general, anti-inflammatory diet, prevention of common chronic diseases, healthy weight management, memory and brain healthy, bone health. I have listed a synopsis and guide for your review below. If you are interested in learning more I offer Video shared medical appointment visits where I go into details into the whole food plant based diet and healthy lifestyle overall. Recommendations for healthy lifestyle include: Healthy nutritious diet, anti-inflammatory diet, appropriate exercise, good sleep hygiene, stress management, supplementing vital deficiencies and maintaining healthy weight. with healthy BMI between 19 to 25, and ideally around 22-23 when possible. For Osteoporosis and low bone density, it is important to keep a BMI at 22 or above and ensure good strength training exercise routine. - You can track your nutrition and calcium intake on www.cronometer.com This provides macro and micronutrient intake and requirements. 5 points to remember to improve your health and continue on a healthy path: 1- Optimal nutritious food, such as a Whole Plant Based diet You can review resources you can review to learn more that I listed below There are many books, pod casts, YouTube videos and documentaries that are available to review. You can watch the documentary movie that features the Whole Plant Based diet, [place] over knives (see video online and visit website). Another movie that was recently released is: Eating You Alive (you can find it at [employer]) and The [employer] movie Dr. Fauzia Ansari is a [facility] physician who has done research and published books, is an expert in Whole Plant based diet for prevention and reversal of heart disease. His website is [employer]. His research highlights the benefits of the Whole food plant based diet in reversing and preventing heart disease. Mrs. Cookie Ansari (his ) has a cookbook with many recipes on whole plant based food: The Prevent and Reverse Heart Disease cookbook. Cookie and Yamile Reeseluisnickie have a cooking show on YouTube called: Plant-Based with Yamile Reeseluisnickie and Cookie Reeseluisnickie. You can also consider reading his son, Eze Ansari's book: The Engine 2 cookbook Eze is a retired tree shear operator who has helped many people get healthier by following the whole food plant based diet. Dr. Rock Velazco, has a website and free claudia to help get started on a whole plant based diet, at www.pcrm.org and you can log on for free for his 21-Day Kickstart with meals and recipes to follow for 21 days. There is also a free claudia for that. He has multiple free videos and YouTube, for example: https://youtu.be/crgEnzzY9r0 , https://youtu.be/MyZOGmplo5k He has written multiple books, including Power Food for the Brain, The Cheese Trap, Dr. Rock Velazco's Program for Reversing Diabetes, Your Body in Balance You can also watch YouTube channel : The Doc & Fur Blower Dr. Anthony Carlson has shown the benefit of a starch based whole food plant based diet to his Rheumatoid Arthritis patients, as well as patient with diabetes II, hypertension, obesity, multiple sclerosis, heart disease, acne, and other, his website: www.debra.XING Dr. Yayo Allred is a renowned non destructive testing scientist, who has studied and researched the benefits of the Whole plant based diet. He has also researched the adverse effects of animal proteins on health. He presents many of his research findings in his book The [place] study. Dr. Gerber Becker has completed many research trials proving the reversal of diseases, such as heart disease and early prostate cancer, with healthy lifestyle and the Whole Plant based diet. Dr. Gerber Becker website is: www.carmenKicknote.[email or web address].XING His new book: Undo It, has evidence based information and guide to following this healthy lifestyle. Dr. Cody Dillon has dedicated a website and additional time to reviewing all food related articles and research and presents them in his power point presentation and on his website at: nutritionfacts.org which is all free. Dr. Dillon has multiple free videos and YouTube, for example https://enercast.be/aSgNkhgVtks and https://enercast.be/lXXXygDRyBU. He has written multiple books including: How Not To and How Not To Diet He is now working on his next book: How Not To Age Dr. Danitza Dash (from the [facility]), has articles on the following website: [place] [employer].XING For additional ideas on recipes, you could find additional information on practical to follow recipes by reading or watching online and YouTube such as: Fur Blower AJ, Cooking With Plants, The Vegan Corner (recipes from an Chinese Fur Blower), The Whole Foods Plant Based Cooking Show and visiting the provided websites for additional information on the whole plant based benefit and cooking recipes. You can also consider watching the vlogs of some of the plant based Athletes such as Fausto Ewing Derek on PlumTV. You can find very good recipes for making easy tasty whole plant based foods and for free at the following YouTube channels: - Plant-Based with Yamile Ansari and Cookie Ansari - The Whole Food Plant Based Cooking Show - Well Your World - Chew on Vegan (is a nurse RN) -The Toi Family - A Plant Based (is a nurse RN) - HealthyVeganEating - Epic Mint Leaves (simple few ingredient meals, quick recipes) - Broccoli Mum - PB with J - Dr. Jenny Degroot Lifestyle Medicine (is a Trim Mounter and Lifestyle Medicine Physician) -Sometimes it helps to start with a simple diet of potatoes, that Dr. Carlson calls Yarelis Carrie. You can learn more about that in his website: www.Fugate.cl This is the website for Yarelis Butler pdf : https://www.Fugate.cl/wp-content /uploads//Georgiana-Carrie_Website_Pr int_Version-1.pdf You can also read more on Dr. Carlson's website - When you goal is to lose weight, it is important to listen to your hunger cues. Don't eat until you are stuffed. As soon as you feel you are no longer hungry, stop eating. There is a Micronesian saying that says Tammie Vega, meaning eat until you are 80% full. I say avoid eating past 80% of your stomach fullness. This originated from the city of [facility], which is one of the sites reported in the [employer] book, one of the highest cities in the world for having the most centenarians. Remember your stomach needs space and capacity for proper digestion of your food. Like a fast food services manager or a lead tank mechanic, they have a limit for proper function, and should not be filled to the top. You can read more about that from the [facility] article Don t Eat Until You re Full ? Instead, Mind Your Tammie Vega Point , at https://health.j.[facility].org/don i-xrq-kflya-gadlp-zllb-ayhuuts-mind-yo xw-dpdr-wxdet-salvador-point/ Most plants contain proteins and all essential amino acids. Some contain a higher content of protein than others. You can get enough proteins on a whole food plant based diet by ensuring a daily sources of legumes/beans (which can be any cooked forman, lentil, chickpeas, including hummus), soy products (tofu, tempeh, soy milk, cooked soy beans, edamame), green peas, quinoa, seeds (hemp seeds, david, flax..), nuts (almonds, pistachos), buckwheat, oats, green leafy veggies, broccoli, TVP (textured vegetable protein such as defatted soy or pea protein), spirulina, nutritional yeast, avocados. If you are not sensitive or intolerant to gluten, vital what gluten cooked into seitan meat like texture can be considered. If needed a plant based protein powder can also be added to the diet. Make sure these are plant proteins and avoid those with erythritol sweetener. It is also important to ensure they are 3rd green party tested to avoid contaminants. You can track your macros on a nutrition tracker such as cronometer or Strevusnesspal and others. Dr. Maryan Holguin (a psychiatrist who suffered with lupus) has helped reverse her Systemic Lupus Erythematosus and helps many patients with their auto-immune diseases, based on her recommendations of the whole food plant based diet and the green smoothies. She has a facebook and website, and on youtube her channel is: Goodbye Lupus Some people have adverse effect or intolerance to gluten. Certain patients with auto-immune disease, including auto-immune thyroid disease, need to avoid gluten. If you suspect you are gluten sensitive or intolerant, you will need to consult with a certified meeting professional to have further evaluation to exclude Celiac disease. If Celiac disease is excluded, but you are gluten intolerant, then you can follow a gluten free diet. Gluten could lead to increased inflammation in the bowels and body in certain patients. Not all your food has to be organ if you cannot afford or find them. Consider organic and non-GMO products when shopping for your food, when possible. GMO are genetically modified food that may have adverse impact on our health. If you are unable to purchase organic of non-GMO, you can wash your produce with white vinegar or soak in baking soda and water (see details from Dr. Yañez's website nutritionfacts.org) and rinse well with water. 2- Regular Exercise, such as beginner yoga, tommie chi, stretching, cardio, lifting weights/gradual strengthening, pool therapy, physical therapy Come As You Are: YOGA - Gentle Yoga Anyone Can Do Anywhere www.Wander (f. YongoPal).XING/yoga Also on youtube: yoga with Karlie For women, especially after menopause, strength training is important. You can read more on that from Clare Morley, PhD at her website https://www.[employer] and YouTube videos. If you are a beginner, it is best to start with a physical therapist or on air personality. There are also several Aps that offer virtual personal training 3- Good Sleep (poor sleep impacts everything, recommended sleep is 7 to 8 hrs. a night). Certain people may need more sleep, depending on their age and other conditions. Meditation and relaxation techniques have shown to help with improving sleep. Try to be consistent with your sleep. You can find more at the [facility] Website on : https://[employer].[facility] hospital[facility].org/ShopKeep POS ents/wellness/store/go-well#sleep-tab 4- Stress management, be happy, laugh often (it is a great medicine), practice gratitude and spiritual awareness Following steps 1-3 (above) will help with this as well. You are an amazing spiritual being with infinite happiness and infinite intelligence. By calming the mind and remembering to be in the awareness of the present moment, you will be in touch with your powerful spiritual being. Meditation, practicing breathing techniques and reading the books I have listed below can help you achieve this. Find time to relax and meditate. This is important, even if you only have 10 minutes a day. You can start your day with a 10 minute meditation. Try to Meditation once daily to twice daily 10 to 15 minutes each. If you have more time you can go longer. If you are new to meditation, it is good to start with a guided meditation. There are many Apps that help with guided Meditation and several are free or have free options such as: Calm Insight Timer Meditation Stress Free Now ([facility]). You can find more resources at the [facility] website at : https://[employer]rote[employer] Systemsashtabula general hospitalVerari Systems.org/departNubees/wellness/store/go-well#stress-iron e-tab There are many free youtube videos on guided meditation as well For Breathing techniques: You can watch John Carlisle and learn the breathing technique and its benefits by watching the following YouTube: [email or web address].[email or web address]?si=-Xtdfr 4UpsJOUbDU. Learning about your awareness/spiritual being, is very empowering and helps with stress, anxiety, mental clarity and wellbeing. I recommend 2 books to start learning about that from well renown spiritual teachers: -The Power of Now by Candie Cuadra -The Unteathered Soul, by Cody Acevedo You can buy these books or borrow them from your local Library They both have many youtube videos and podcasts that you can listen to, and are free. If needed, you can work with a psychotherapist or behavioral health girls swimming coach. When having a psychiatric condition, it is important to follow with a professional on the optimal management of depression, anxiety and any other psychiatric illnesses. You can discuss that further with your Primary care physician/provider. 5- Supplements Supplementing necessary vitamins and minerals, correcting any deficiencies, i.e. Vitamin D, B12, omega-3 fatty acids etc... Go natural when possible -Important notice: If you are following a Whole plant based diet, it is recommended to take Vitamin B12, sublingual, dissolve under the tongue, take once daily. Vitamin B12 is available over the counter, dose could be 2500 mcg, and can be taken once a week, and if your blood levels are low, you may need to take it once daily or a higher dose. Raw: Garlic, Cilantro, Pilot nuts, Pumpkin seeds, [place] seeds and Flax seed powder have been reported to help with certain metal detoxification such as mercury. [place]-3 plant based rich foods are good anti-inflammatory sources such as : david seeds, flax seed (needs to be ground), walnuts, hemp seeds, dark green leafy vegetables. It is important to avoid refined oils as much as possible especially that many have too much omega-6 that is pro-inflammatory (lead to inflammation as well as concern for heart and vascular disease). Turmeric can be found natural, used as the spice powder or the root with your food. This is also available as a capsule. If you are on a blood thinner, you will need to discuss with your pharmacist or physician before taking Turmeric If you have gall bladder disease or gall bladder stones, it is recommended to avoid turmeric capsules. Sweet cherries (raw cleaned or frozen), Turmeric , pineapple (contains bromelain), omega-rich foods, have anti-inflammatory benefit Start reviewing the Whole Plant Based Diet, by watching [place] over [employer] movie and then review website. There are many other resources and educational information on the Whole plant based diet on the Internet and documentaries. There are other resources for wellness that you can also benefit from, such as the [facility] Wellness website, [facility].org and includes Plant based and Mediterranean diet, yoga and meditation. Please avoid all dairy products. You could use non-dairy milk such as Flax milk, Cashew milk, [place] milk, Rice milk, Oat milk or Hemp milk, instead. It is very important to avoid all: refined sugars (including high fructose syrup), refined carbohydrates, any artificial sweeteners and artificial preservatives, and soda and heavily processed food. Insure adequate hydration; drink at least 6 to 8 cups of water daily, certain people need less or more. - You don't have to drink smoothies, but if you have a sweet tooth or enjoy a desert or something sweet every day, a smoothie can help satisfy that and would help you avoid eating refined foods and added sugars or snacking on unhealthy foods. Also smoothies can help you get a lot of green leafy vegetables in your system, especially if you have a busy schedule and don't have time to eat a lot of greens. You can start your day with a smoothie, especially if you are busy and don't have time to eat your oatmeal or veggies and fruits in the morning. Examples of Smoothies: You can try many of the healthy natural anti-inflammatory smoothies listed below, just add the ingredients to your lead tank mechanic and blend: - Probably the healthiest smoothie is one that contains mostly green leafy vegetables (especially containing kale), some berries, flax seed and water. This might not hose turner to be sweet. You can add one or two pitted dates or a frozen banana for natural sweetness. Examples of healthy green smoothies, pack your lead tank mechanic (at least half way to /) with a mix of green leafy veggies, then top your lead tank mechanic with fruits (such as banana or frozen raul or pineapple, peaches, apricots, apples, grapes), a tablespoon of flax or david seeds, then add water or unsweetened coconut water and blend until smooth. You can also add turmeric in this recipe. Do not only use spinach as they tend to be high in oxalates and can be risk for kidney stones. The same with solomon islander chards and beet leaves. If you don't like the taste of green leafy veggies in your smoothie, start gradually with one handful and add fruits to help with the taste. Another smoothie can be: - Fresh or frozen berries (such as frozen sweet cherries, blueberries, strawberries), a peeled frozen banana, green leafy vegetables (mixed greens or kale, not just spinach), 1 tablespoon of flax seed or david seeds or a few walnuts, for liquid you can add water or an unsweetened plant based milk (can be soy, flax milk, almond milk), blend and enjoy. For anti-inflammatory boost add: Turmeric: half a root of turmeric (1 to 2 inches) or 1/4 dried turmeric powder along with a sprinkle of black pepper. This might change the flavor. You could add a quarter or half an avocado if you like it smoother and for a low fat option and less calories you can add instead a well cooked peeled sweet potato. -Tips on smoothies: To keep your green smoothies vibrant green, and not turn brown, keep the fruits that are yellow or orange in color only. Adding a cooked sweet potato can add sweetness and smooth texture to your smoothie. Adding beets to your smoothies can add sweetness and boost your nitric oxide. Beets are healthy for the heart, and they can bring blood pressure down. Beets have been reported to help with sports performance. For extra natural plant based proteins, you can add half a block of tofu or cooked chickpeas (or cannellini beans). Black beans can be added, they will turn your smoothie darker. If you do not tolerate walnuts, you can use flax seeds, david seeds or hemp seeds instead. If you do not like plant based milk, you can use coconut water or plain water instead. Avoid coconut milk and cream as it is high in saturated fat. You can add 1/4 to 1/2 cup of oats in your smoothies if you need more calories and need it to sustain you for longer. The paz with smoothies is to drink (sip) them slowly, over an hour. I hope this information will help you be empowered with the awareness and knowledge to achieve the best of your health and wellbeing. At the [facility], we work as a team for your care, along with Nurse Practitioners, Physician Assistants, Nurses and Medical Assistants. It is a privilege and honor to serve you. Thank you for choosing [facility] for your healthcare. Sincerely, Darrian Dubon MD BONE MINERAL DENSITY PATIENT INSTRUCTIONS === Bone mineral density testing measures the amount of calcium in certain parts of your bones. This information determines how strong your bones are. The test is used to detect osteoporosis, a disease in which the bone's mineral content and density are low, increasing a person's risk of fractures. The lumbar spine (lower back) and the hip are the skeletal sites usually examined. For the test, remember that: 1. You cannot take this test if you are . 2. Eat a normal diet on the day of the test. 3. Take your medications as you normally would. 4. DO NOT take calcium supplements (such as Tums) for 24 hours before the test. 5. On the day of the test, leave valuables (jewelry or credit cards) at home. 6. The test should be performed prior to oral, rectal or IV contrast studies, or at least 7 days after any of these studies. For the test, you may be asked to wear a hospital gown. You will lie on your back, on a padded table, in a comfortable position. Generally, you can resume your usual activities immediately. documented in this encounter [facility] 10-05-2024 Note HNO ID: [id number] Author: DARRIAN DUBON MD Service: ? Author Type: Physician Type: Progress Notes Filed: 10/16/2024 19:47 Note Text: FOLLOW UP VISIT Patient's Name: Jam Erwin [facility] [address] PCP: Jose L Lackey MD [address] [facility] [place] [address] Consult Requested by: Jose L Lackey MD [address] [facility] [address] Other physicians: Stem[employer] prev. Nel Lebron MD (his prev. certified meeting professional left- Ronald Brown MD) ; Now following with Dr. Luis Antonio García Accompanied by: self Interim history: Mr. Toscano is a very nice 59 y.o. gentleman here for f/u visit for Rheumatoid Arthritis and Osteoporosis He follows with IBD, UC, on Entyvio and sulfasalazine; States had liver US and fibroscan, told no fatty liver He is no longer on anti-TNF therapy. 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 Denies serious infections Denies interim infections or fevers Had covid-19, 10/2024, no complications, flu like sympt, did not require hosp, resolved. States it was only couple days. He received Reclast infusion 05/09/2024, well tolerated Denies interim fractures Follows with dentist every 6 months, denies jaw pain or dental problems. He has lower partial Denies upcoming dental work Continues on vitamin D: 5000 international units once daily with meals Taking multivitamin Calcium is in diet and multivitamin 09/23/2022 His main problem has been in IBD and is following with local certified meeting professional for that. Has been on Humira since Sep 2020 (started with 80 mg loading dose and since has been on 40 mg every 2 wks) He was pleased with Enbrel response to his RA and later was switched to Humira, reports has similar benefit and is pleased with response. His certified meeting professional switched him to Humira for optimal mgt of IBD and he feels this has helped his IBD better. Reports still gets 8 BM's a day, does not have BM at night, does not have to wake up from sleep. Has been following with his certified meeting professional for his UC Had colonoscopy 11/22/2021 with reported marked improvement in asc/transv/desc colon and severe active in rectum, histopath with active colitis with erosions. States Dr. Lebron has started him on rectal enemas. Recent colonoscopy with reported active colitis. He tells me that he continues to have multiple BM's; His certified meeting professional prescribed pred. course, completed recently. No jt swelling No new rheum nodules, stable elbows. Denies any am stiffness No jt pains No pain at rest. No extra-articular manifestations Continues to feel stronger and not dropping stuff since on Enbrel. States once in a while, depending on his pillow, may get early am stiffness, short lived. RA med: none from us, he is on Humira per his Stemmer Machine He is off Enbrel, was switched to Humira by his certified meeting professional. (previously was on Enbrel 25 mg twice a wk and has been in remission since on Enbrel and very pleased with his treatment regimen) He is on Humira 40 mg every 2 wks by his Stemmer Machine He is on sulfasalazine, Humira and mesalamine enemas per his certified meeting professional I have reviewed benefits of a whole food plant based diet He consumes dairy, cheese, sausage, hamburger. I have advised him on avoiding meats and dairy and reviewed reports and patient experience with flare of IBD and RA, as well as gastrointestinal dysbiosis. I advised him on a whole foods plant based diet. 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 He has stopped drinking monster energy drink with water and I advised him to avoid all soda and energy drinks and use natural whole plant based foods for his nourishment instead. States noticed by avoiding dairy, felt much better. Continues to exercise, reported some strengthening exercises with band and being cautious Denies interim infections or fevers Continues on vitamin D: 5000 international units once daily with meals Taking multivitamin Calcium is in diet and multivitamin DXA reviewed with patient DXA August 19, 2018 Lowest T-score -2.5 (left fem neck) Denies taking steroids in recent yrs, none since on Enbrel Denies history of low impact trauma No reported fractures due to low impact trauma He was not UTD on dental and states has 1 tooth that still needs work I have ad (more content not included)... [facility] 10-05-2024 History of Present illness Narrative Images from the original note were not included. FOLLOW UP VISIT Patient's Name: Jam Erwin [facility] [id number] PCP: Jose L Lackey MD [facility] [place] [address] Consult Requested by: Jose L Lackey MD [facility] [facility] [address] Other physicians: St[employer] prev. Nel Lebron MD (his prev. certified meeting professional left- Ronald Brown MD) ; Now following with Dr. Luis Antonio García Accompanied by: self Interim history: Mr. Toscano is a very nice 59 y.o. gentleman here for f/u visit for Rheumatoid Arthritis and Osteoporosis He follows with IBD, UC, on Entyvio and sulfasalazine; States had liver US and fibroscan, told no fatty liver He is no longer on anti-TNF therapy. 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 Denies serious infections Denies interim infections or fevers Had covid-19, 10/2024, no complications, flu like sympt, did not require hosp, resolved. States it was only couple days. He received Reclast infusion 05/09/2024, well tolerated Denies interim fractures Follows with dentist every 6 months, denies jaw pain or dental problems. He has lower partial Denies upcoming dental work Continues on vitamin D: 5000 international units once daily with meals Taking multivitamin Calcium is in diet and multivitamin 09/23/2022 His main problem has been in IBD and is following with local certified meeting professional for that. Has been on Humira since Sep 2020 (started with 80 mg loading dose and since has been on 40 mg every 2 wks) He was pleased with Enbrel response to his RA and later was switched to Humira, reports has similar benefit and is pleased with response. His certified meeting professional switched him to Humira for optimal mgt of IBD and he feels this has helped his IBD better. Reports still gets 8 BM's a day, does not have BM at night, does not have to wake up from sleep. Has been following with his certified meeting professional for his UC Had colonoscopy 11/22/2021 with reported marked improvement in asc/transv/desc colon and severe active in rectum, histopath with active colitis with erosions. States Dr. Lebron has started him on rectal enemas. Recent colonoscopy with reported active colitis. He tells me that he continues to have multiple BM's; His certified meeting professional prescribed pred. course, completed recently. No jt swelling No new rheum nodules, stable elbows. Denies any am stiffness No jt pains No pain at rest. No extra-articular manifestations Continues to feel stronger and not dropping stuff since on Enbrel. States once in a while, depending on his pillow, may get early am stiffness, short lived. RA med: none from us, he is on Humira per his Stemmer [employer] He is off Enbrel, was switched to Humira by his certified meeting professional. (previously was on Enbrel 25 mg twice a wk and has been in remission since on Enbrel and very pleased with his treatment regimen) He is on Humira 40 mg every 2 wks by his Stemmer Machine He is on sulfasalazine, Humira and mesalamine enemas per his certified meeting professional I have reviewed benefits of a whole food plant based diet He consumes dairy, cheese, sausage, hamburger. I have advised him on avoiding meats and dairy and reviewed reports and patient experience with flare of IBD and RA, as well as gastrointestinal dysbiosis. I advised him on a whole foods plant based diet. He has a lead tank mechanic ([employer]) and interested in making healthy smoothies and we have discussed at last visit. He has stopped drinking monster energy drink with water and I advised him to avoid all soda and energy drinks and use natural whole plant based foods for his nourishment instead. States noticed by avoiding dairy, felt much better. Continues to exercise, reported some strengthening exercises with band and being cautious Denies interim infections or fevers Continues on vitamin D: 5000 international units once daily with meals Taking multivitamin Calcium is in diet and multivitamin DXA reviewed with patient DXA August 19, 2018 Lowest T-score -2.5 (left fem neck) Denies taking steroids in recent yrs, none since on Enbrel Denies history of low impact trauma No reported fractures due to low impact trauma He was not UTD on dental and states has 1 tooth that still needs work I have advised home on f/u with dentist as soon as possible DXA August 22, 2020, lowest T-score -2.7 (left fem neck) Left total neck T-score -2.6 Spine T-score -1.7, stable BMD, but is unreliable due to degen. disease Bone loss at the fem neck by 6.3% At July 12, 2019 and August 27, 2021 visit, he relayed that he has not followed with his dentist yet. He does not have a dental insurance. States he is looking into dental insurance. I reviewed importance of f/u with dentist and explained also that this is delaying his Osteoporosis therapy. He tells me that he has not had f/u with dentist yet States he will f/u with his local dentist. Due to Pandemic has not been able to He reports that he will have dental insurance Nov 2022 and will be able to follow up with his dentist. -Reports had shingles 04/2021 along rt side, resolved since, no complications Following with his Primary care physician Outside labs reviewed 05/13/2021 Creatinine, AST, ALT normal Alk phos elevated 185 (improved from 04/30 labs) Hb 12 6/15: PLT 350 Has lithotripsy in April 2021 for nephrolithiasis per his Urologist Vitamin D 25 Hydroxy (ng/mL) Date Value 12/01/2023 63.0 02/20/2021 44.2 ] XR Ankle: IMPRESSION: Arthritic changes demonstrating interval progression in this patient with known rheumatoid arthritis. Poster: CODY Transcribe Date/Time: Feb 20 2021 9:52A Dictated by : JENNIFER BOSCH MD This examination was interpreted and the report reviewed and electronically signed by: JENNIFER BOSCH MD on Feb 20 2021 9:56AM EST Results-Findings * * *Final Report* * * DATE OF EXAM: Feb 20 2021 8:42AM LNX [id number] - XR ANKLE 3V AP/LAT/OBL LT / PROCEDURE REASON: multiple diagnoses * * * * Physician Interpretation * * * * TECHNIQUE: Weightbearing left ankle 3 views CLINICAL DATA: Severe positive rheumatoid arthritis, chronic left ankle pain.. COMPARISON: 08/29/2015. RESULT: There is no acute fracture or dislocation. The joint spaces demonstrate tibiotalar narrowing predominantly laterally. The patient has pes planus deformity. There is also narrowing of the talocalcaneal joint space. Previously States the other day, about 2 wks ago, felt rt shoulder needed to be stretched. [facility] was working in yard, denies injury. Denies jt pains, outside of the left tip of ankle, states feels the top of the left ankle feels like it's jammed up , feels needs to pull bones apart. [facility] is the site where has fallen arch. Has seen Manager Assurance in the remote past for the fallen arch, not recently. Feels gets stiff when not moving as much. Denies any injury or trauma. Denies any pain to me today States his certified meeting professional has prescribed prednisone course due to IBD flare States after scope was told is flared. He is on sulfasalazine and budesonide and his certified meeting professional and since has switched him from Enbrel to Humira. Previously reported was prescr medrol dose pack per Primary care physician for left LE edema affecting left knee. This was a surgical knee, and his Orthopedic surgeon told him all was good. States LE US and cardiac Echo and were good. He has not needed steroids for RA He has not needed nsaids or pain medications and is very pleased with his Enbrel and healthy lifestyle changes. Was on vitamin D3: 5000 international units total once daily with meals; Denies exposure to TB I reviewed available outside records He is following with Urologist, Dr. Lackey for gross hematuria, seen 02/04/2021 Per note in Care Everywhere CT scan has shown a mass in the bladder likely caused by the middle lobe of the prostate. Urinary cytology and FISH were both negative. He does have outlet obstruction symptoms and asked about information related to managing his enlarging prostate. 1. Bladder mass (N32.89: Other specified disorders of bladder) 2.0cm mass, inferior posterior bladder; No bladder mass seen with Cysto. This is thought to be related to the middle lobe of the prostate. No bladder mass was identified cystoscopically. Pt had Cysto in office today with no difficulties. 2. Bladder stone (N21.0: Calculus in bladder) Stone is actually in the prostatic fossa. It is causing a fairly high-grade obstruction. 3. BPH with urinary obstruction (N40.1: Benign prostatic hyperplasia with lower urinary tract symptoms) Pt is not currently on any prostate medications. 4. Incomplete bladder emptying (R33.9: Retention of urine, unspecified) This is likely related to the enlarged prostate as well as the oculus located in the prostatic fossa. 5. Gross hematuria (R31.0: Gross hematuria) Hematuria work-up is negative except for the stone located in the prostatic fossa. No bladder tumors were identified urine studies were negative and the CT scan showed an enlarged prostate and possible bladder mass that was evaluated cystoscopically and showed a middle lobe of the prostate. 6. Kidney stones (N20.0: Calculus of kidney) Pt's CT Scan shows BL nonobstructing Kidney Stones Follow-up No qualifying data available Documentation recorded by the Lizeth mckenzie accurately reflects the services(s) I performed and decisions made by me. Authenticated by Dr. Gonzalez on 02/04/2021 -States will be having Cystoscopy laser to break the stone in his prostate. -Has not had covid vaccine yet We reviewed ACR recommendations and advised that per guidelines Humira would not have to be held for the vaccine. I reviewed his test results in details. These have also been shared with patient thru his MyChart Outside labs from Dec and January 2021 reviewed WBC and PLT normal Hb 13.1 Cr 0.85 CRP 0.7 mg/dL Per last visit note: We called him with monocl ur M protein and referred to Hematology Primary care physician recheck SPEP serum, but did not do urine M protein. His SPEP and serum monoclonal are normal. I explained to patient that it is the urine M protein that is abnormal. I rechecked the urine test 06/2019 and still M protein finding. We called him for apt, had to leave message and advised him to call us back, he has not. At January 17, 2020 visit, I reviewed this again with patient and importance of Hematology Oncology evaluation. We scheduled him with Oncologist and is followed by Dr. Troy Merlos His phos. has improved and he was advised on continued phos rich foods Alk phos isoenz: liver fraction; followed by certified meeting professional He follows with his certified meeting professional for hi elev alk phos and AST and for bld with stools, Dr Brown: and states he started him on iron supplement States Dr. Brown prescribed metronidazole, for reported diarrhea. [facility] felt it made a difference. [facility] he gave him enemas and told that is for his ulcerative colitis and prescr. sulfasalazine. In 2018, has also followed with his certified meeting professional for blood with stools, and had flex sig and told he was inflamed from his Ulcerative colitis. [facility] had colonosc and EGD in 2018 and was told were good. Told his bld in stools from his UC and patient states notices also mucus when wipes. [facility] had increased his sulfasalazine dose. [facility] also notices that dairy and cheese caused really bad inflammation from these and has avoided since. [facility] also avoids coffee and consumes green tea instead. RAPID 3: DISEASE ACTIVITY: Weighed Score Levels: 0 - 1: Near Remission 1.3 - 2.0: Low Severity 2.3 - 4.0: Moderate Severity 4.3 - 10.0: High Severity RAPID-3 Weighed Score 08/19/2018 02/10/2019 01/17/2020 RAPID 3 Weighed Score 0.1 1.6 0.9 Review of Systems CONSTITUTION: Negative for: Weight loss or gain, Fever. Chills, Night sweats HEENT: Negative for: Nosebleeds, Mouth sores, Trouble swallowing, Dry mouth RESPIRATORY: Negative for: Cough, Shortness of breath, Pain with breathing, Coughing up blood GASTROINTESTINAL: Negative for: Melena, Diarrhea, Heartburn and Abdominal pain IBD as above MUSCULOSKELETAL: Negative for: Arthralgias, Myalgias, Muscle weakness, Joint swelling and Morning Joint Stiffness NEUROLOGICAL: Negative for: Headaches, Numbness, Memory loss, SKIN: Negative for: Rashes, Sun sensitive rashes, Skin color changes, Hair loss, Nail changes Dry skin LE, and fluid retention in LE EYES: Negative for: Eye pain, Eye redness, Visual disturbance, Eye dryness CARDIOVASCULAR: Positive for: Leg swelling Negative for: Chest pain GENITOURINARY: Negative for: Dysuria, Hematuria, Ulceration HEMATOLOGIC/LYMPHATIC: Negative for: Swollen glands all other systems reviewed and are negative DXA Model: [employer] W [id number] SITE SCANNED: Lumbar spine and left hip Date Scanned: 08/22/2020 10:14 AM Date of prior scan(s): 08/19/2018 TECHNICAL LIMITATIONS: Degenerative disease of the spine The spine is uninterpretable per ISCD guidelines since only one vertebra appropriate for interpretation RESULTS: Left Femoral Neck: 0.568 g/cm2, T-score -2.7, Z-score -1.8 Left Femoral Neck: 2018: 0.594 g/cm2 No statistically significant change Left Total Hip: 0.645 g/cm2, T-score -2.6, Z-score -2.2 Left Total Hip: 2018: 0.688 g/cm2 Statistically significant decrease by 6.3% CHANGE IS STATISTICALLY SIGNIFICANT IN THE SPINE OR HIP IF GREATER THAN OR EQUAL TO 0.04g/cm2 Per last visit: Had EGD and colonoscopy 08/03/2018: negative for bleeding, no cancer, no inflammation and no reported colitis Patient states biopsies were all normal. He follows with his certified meeting professional for his ulcerative colitis and is on sulfasalazine. He was told by his certified meeting professional to avoid sun exposure due to this med, had skin itching last summer. He had evaluation for elevated AST and alk phos. Alk phos has improved and AST has been borderline elevated. I have advised him to f/u with his certified meeting professional for his elevated alk phos (liver fraction) States his certified meeting professional did an US of his liver twice and was told was normal. He denies any alcohol consumption or acetaminophens. His isoenzyme indicated predom. of liver origin. The patient reports that his certified meeting professional completed evaluation and told his liver is fine. His liver US was unremarkable . His anemia has resolved since his UC has been controlled. [facility] saw his certified meeting professional, Dr. Lebron, recently and states told him his counts were mildly low, and not concerning. States he told him, everything is clearing up good . Last apt with Dr Hillman was 06/23/2017. States had episode of pain along rt flank, from kidney stone, passed it in 36 hrs. States he has not taken it to analyze it. He sees Urologist for this. Since then, has not had pain or problems passing urine and denies hematuria or dysuria. DXA Model: [employer] W [id number] SITE SCANNED: Lumbar spine and left hip Date Scanned: 08/19/2018 8:05 AM TECHNICAL LIMITATIONS: Degenerative disease of the spine This is first bone density test on this machine. A previous bone density may have been performed on a different DXA machine(new, updated model OR different location), thus no comparison can be made with past studies. Right hip(s) could not be scanned due to prior surgery RESULTS: Lumbar spine (L1-L4): 0.895 g/cm2, T-score -1.8, Z-score -1.3 Left Femoral Neck: 0.594 g/cm2, T-score -2.5, Z-score -1.6 Left Total Hip: 0.688 g/cm2, T-score -2.3, Z-score -1.9 Labs for Nov 2018 not completed, will complete today Consult note 08/29/2015 CC: Rheumatoid Arthritis and needs assistance with Enbrel approval HPI: Mr. Toscano is a very nice 50 y.o. gentleman with history of Rheumatoid Arthritis, HTN, hyperlipidemia, gerd, bleeding ulcer, Ulcerative colitis, anemia. Previous smoker, quit Oct 2013 Denies alcohol consumption, since >20 yrs. Patient reports doing well, states not bad . [facility] has seen a sales floor manager in the past, in [place], Dr. Whitfield. used to be on Remicade with him, was expensive. Patient went on bankruptcy and had to leave, and since then his Primary care physician, Dr. Lackey, has been managing his Rheumatoid Arthritis and prescribing medications. Rheumatoid Arthritis history: Around 1996, started with symptoms States after 6 months had testing and showed RF and diagnosed in 1997 States at onset was having multiple jt pains, every joint, did not see swelling at the time, reported significant stiffness. Eventually reported: neck at times, shoulders, elbows, wrists, fingers, outer hips, knees (s/p b/l knee replacement), ankles b/l, toes of left foot. Joint swelling has involved: wrists, MCP's, knees, ankles Joint replacement: Rt hip, b/l knees (last surgery 2011, left knee); Denies complications or infections. Joint deformities and LOM: wrists, fingers, elbows, toes, ankles; rt hip and knees with good ROM since arthroplasty Reports joint deformities predated the Enbrel and methotrexate Medications tried: Steroids: was on it for yrs before starting methotrexate and other medications Cortisone inj to jts NSAIDs methotrexate : took it for 3 yrs, states as high as 10 tbs/wk, states was helping when was taking States after starting the Enbrel about 8 months into the methotrexate, reports was getting worse, increased stiffness in jts. States he opted to d/c the methotrexate and 6 wks off the methotrexate and remained on Enbrel everything got better . leflunomide: denies sulfasalazine: recently for UC, started 04/2015 Plaquenil: denies Biologic therapy: Enbrel, later was on Remicade; It is unclear to me, but the patient states that was started on Remicade while still on Enbrel ??,cannot confirm or clarify. States he only had Remicade for 3 months only, due to cost and expense. was able to continue on Enbrel and has been on it since ~2000. Denies any adverse effect from the Enbrel. He reports that the Enbrel has been working well for his Rheumatoid Arthritis. Reports Enbrel 25 mg sq twice a week. Patient would like to continue on his Enbrel and this has been controlling his Rheumatoid Arthritis well over the yrs. He reports his insurance has been inquiring on indication for Enbrel and its response before approving. He would like assistance with prescribing it and prior auth. Infections: Denies serious infections, reports about once a year would have sinus infection and Dr. Lackey would prescribed antibiotics Denies TB or fungal infections Ulcerative Colitis history: Managed by Dr. Nel Lebron Reports diagnosed March 2015, reports bld with stools and diarrhea. States yrs ago had abd cramps that resolve with BM, but does not recall these symptoms in the past. had EGD and colonoscopy and was told had ulcer of lower gastrointestinal tract and diagnosed with UC. Patient unaware if biopsies were done. Treatment: ant-acid in am, omeprazole, states they recommended also mesalamine enema and sulfasalazine 500mg q 6hrs. Reports benefit and his certified meeting professional took him off the iron supplement as his iron was good. has advised him to avoid all nsaids and recently had discontinued his Celebrex. has another apt and scheduled for scope next wk Tu. RHEUM. ROS: Joint pain: as above; none currently Joint swelling: as above; none currently Am stiffness: as above; none currently Low back pain: no Dactylitis: no H/o precedent/frequent infection(s): as above Enthesopathy/Jannet's/heel/plantar tenderness: no Skin thickening, psoriasis, photosensitivity, purpura: no Nail changes: no Alpecia, patchy: no; has MPB Eye inflammation: no SICCA: no Oral/nasal/genital ulcers: no GI problems-diarrhea/bleeding/IBD/Gluten intolerence/Dysphagia: as above Raynaud's phenomenon/digital ulcers: no Organ inv-Serositis: no Lung disease/ILD: no Myopathy/proximal muscle weakness: no Abnormal Urine or urethritis: no Renal disease: no MACHINE WHITENER/PNS disease: no and denies MS HEME-Cytopenias/LAD/Clots: iron deficiency anemia (improved, states was related to UC bleeding ulcer lower gastrointestinal) Fatigue: no Fevers: no; and denies night sweats and reports wt stable since on UC treatment PMR/GCA ROS: negative Patient denies history of Gout or Pseudogout, Psoriasis, Rheumatic Fever, Liver Disease, Hepatitis , Kidney Disease, Kidney Stones, DM, CAD, PAD, Sinusitis, Asthma, TB infection or exposure, Pneumonias, Seizures, Stroke, MS, Clots, Cancer, Thyroid Disease, Transfusions, Tattoos and Alcohol dependency. Other ROS: The remainder of the review of systems is negative. ALLERGIES: Patient has no known allergies. PMH: PAST MEDICAL HISTORY Diagnosis Date Monoclonal gammopathy as above PATIENT REPORTS: Cardiac stress test:y, normal, 2013 Prostate exam/PSA: y Colonoscopy: as above Bone Density: yrs ago , told was slightly low, was ~ 8 yrs ago History of Fractures: none from frag fracture; reports fractured rt wrist after bumping into door Height Loss: suspected lost 2 inches over the yrs IMMUNIZATION HX: Immunization History Administered Date(s) Administered COVID-19 vaccine (STARR) 03/18/2021 hepatitis A-hepatitis B (HepA-HepB) vaccine (T[facility]X) 05/03/2015 05/31/2015 12/08/2015 influenza (IIV3) vaccine, trivalent, PF (AFLURIA, FLUARIX, FLULAVAL, FLUVIRIN, FLUZONE) 07/31/2015 influenza (IIV4) vaccine, age 6 mo - 64 yr, quadrivalent, PF (AFLURIA, FLUARIX, FLULAVAL, FLUZONE) 08/15/2016 08/29/2019 influenza (ccIIV4) vaccine, age 6+ mo, quadrivalent (FLUCELVAX) 10/28/2019 influenza (ccIIV4) vaccine, age 6+ mo, quadrivalent, PF (FLUCELVAX) 09/27/2020 pneumococcal conjugate (PCV13) vaccine, 13 valent (PREVNAR 13) 11/01/2015 pneumococcal polysaccharide (PPV23) vaccine, 23 valent (PNEUMOVAX 23) 05/03/2015 zoster (RZV) vaccine, recombinant (SHINGRIX) 03/17/2022 06/09/2022 Pneumovax : 2015, 23 and then 13 Flu shot : y, 07/2015 Tetanus: utd Last PPD: yes, told negative Reports past CXR and was normal PSH: No past surgical history on file. 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 Lackey Smoking: quit 2012 Alcohol as above IVDU: denies Industrial toxic exposures: denies FAMILY HISTORY: No family history on file. suspects his mother may have had RA Mother: CAD, CABG, COPD/emphysemia Father: passed from CHF bother were smokers PERTINENT TESTS: Component Latest Ref Rng 02/15/2016 Alkaline Phosphatase, Total 40 - 115 U/L 166 (H) Alk Phos Bone % 16 - 56 % 21 Alk Phos Bone Fraction 5 - 58 U/L 35 Alk Phos Liver % 44 - 84 % 77 Alk Phos Liver Fraction 5 - 93 U/L 128 (H) Alk Phos Intestine % <14 % 2 Alk Phos Intestine Fraction <15 U/L 3 Component Latest Ref Rng 08/29/2015 WBC 3.70 - 11.00 k/uL 8.13 RBC 4.20 - 6.00 m/uL 4.52 Hemoglobin 13.0 - 17.0 g/dL 14.0 Hematocrit 39.0 - 51.0 % 39.9 MCV 80.0 - 100.0 fL 88.3 MCH 26.0 - 34.0 pG 31.0 MCHC 30.5 - 36.0 g/dL 35.1 RDW-CV 11.5 - 15.0 % 15.1 (H) Platelet Count 150 - 400 k/uL 229 MPV 9.0 - 12.7 fL 10.1 Neut% 53.0 Abs Neut (ANC) 1.45 - 7.50 k/uL 4.30 Lymph% 37.1 Abs Lymph 1.00 - 4.00 k/uL 3.02 Hickman% 9.7 Abs Hickman 0.00 - 0.86 k/uL 0.79 Eosin% 0.0 Abs Eosin 0.00 - 0.45 k/uL 0.00 Baso% 0.2 Abs Baso 0.00 - 0.10 k/uL 0.02 Diff Type Auto Diff Protein, Total 6.0 - 8.4 g/dL 6.8 Albumin 3.5 - 5.0 g/dL 4.2 Calcium 8.5 - 10.5 mg/dL 9.4 Bilirubin, Total 0.0 - 1.5 mg/dL 0.3 Alkaline Phosphatase 40 - 150 U/L 143 AST 7 - 40 U/L 28 Glucose 65 - 100 mg/dL 73 BUN 10 - 25 mg/dL 8 (L) Creatinine 0.70 - 1.40 mg/dL 0.85 Sodium 135 - 146 mmol/L 146 Potassium 3.5 - 5.0 mmol/L 2.8 (L) Chloride 98 - 110 mmol/L 106 CO2 23 - 32 mmol/L 27 Anion Gap 0 - 15 mmol/L 13 ALT 5 - 50 U/L 23 eGFR- >60 eGFR-All Other Races >60 Color Yellow Yellow Clarity Clear Clear Glucose, Urine Negative mg/dL Negative Bilirubin, Urine Negative Negative Ketones, Urine Negative Negative Specific [place], Ur 1.005 - 1.030 1.008 Hemoglobin/Blood,Ur Negative 3+ (A) pH, Urine 4.5 - 8.0 6.0 Protein, Urine Negative mg/dL Negative Urobilinogen Normal Normal Nitrites Negative Negative Leukest Negative Negative Comments SEE COMMENT Urine Adan Comment SEE COMMENT WBC, Urine 0 - 5 /HPF 0-5 RBC, Urine 0 - 3 /HPF >25 (A) Sm Antibody <1.0 AI <0.2 CAREER RESOURCE TECHNICIAN Antibody <1.0 AI 1.2 (H) SSA Antibody <1.0 AI <0.2 SSB Antibody <1.0 AI <0.2 Centromere Ab <1.0 AI <0.2 Scleroderma Ab, IgG <1.0 AI <0.2 Milagro 1 Antibody <1.0 AI <0.2 Ribosomal CAREER RESOURCE TECHNICIAN <1.0 AI <0.2 Chromatin Antibody <1.0 AI <0.2 Hep B Core Ab, Total Negative Negative Hep C Antibody IA Negative Negative Hep B Surface Ag Negative Negative Hep B Surface Ab, Qual Negative Negative TB Result Negative Negative TB Antigen Response <0.35 IU/mL 0.00 Mitogen Response >0.49 IU/mL 6.13 TB Gamma Interpretation No evidence of current or previous infection with Mycobacterium tuberculosis. KURT Negative Positive (A) KURT Titer Negative 1:80 (A) KURT Pattern Atypical speckled IgA 78 - 391 mg/dL 207 Transglutaminase Ab, IgA <20 Units 5 Interpretation (Celiac Screen) No serologic evidence of celiac disease. No serologic evidence of celiac disease. PTH, Intact 15 - 65 pg/mL 55 Vitamin D 25 Hydroxy 31.0 - 80.0 ng/mL 24.6 (L) Rheumatoid Factor <20 IU/mL 406 (H) CCP Antibody, IgG <20 Units >250 (H) G6PD Scn Normal Normal ANAP MILDRED Reflex Bill Billed for services performed DNA Antibody w/Confirmation <30 IU/mL <12 X-rays reports and films reviewed with patient, c/w chronic Rheumatoid Arthritis findings and DJD. Latest Ref Rng & Units 01/17/2020 08/22/2020 12/01/2023 01/12/2024 CBC WBC 3.70 - 11.00 k/uL 5.62 6.17 10.84 8.05 Hemoglobin 13.0 - 17.0 g/dL 12.8 12.8 11.6 13.9 Hematocrit 39.0 - 51.0 % 38.8 39.2 36.8 43.6 Platelet Count 150 - 400 k/uL 286 316 497 339 Abs Neut (ANC) 1.45 - 7.50 k/uL 3.79 4.10 7.83 5.55 Abs Lymph 1.00 - 4.00 k/uL 1.18 1.38 2.11 1.84 Latest Ref Rng & Units 01/17/2020 08/22/2020 12/01/2023 01/12/2024 CMP Sodium 136 - 144 mmol/L 140 142 143 Potassium 3.7 - 5.1 mmol/L 4.3 4.0 4.1 Chloride 97 - 105 mmol/L 102 105 106 CO2 22 - 30 mmol/L 26 26 25 Glucose 74 - 99 mg/dL 91 81 101 BUN 9 - 24 mg/dL 10 15 19 Creatinine 0.73 - 1.22 mg/dL 0.83 0.79 0.92 Calcium 8.5 - 10.2 mg/dL 9.3 9.4 10.2 AST 14 - 40 U/L 31 31 ALT 10 - 54 U/L 16 18 22 Alkaline Phosphatase 38 - 113 U/L 135 171 211 Latest Ref Rng & Units 01/26/2020 08/22/2020 Uric Acid Uric Acid 4.0 - 8.1 mg/dL 6.3 4.4 Latest Ref Rng & Units 12/01/2023 01/12/2024 ESR, WSR WSR 0 - 15 mm/hr 114 34 Latest Ref Rng & Units 12/01/2023 01/12/2024 CRP CRP <0.9 mg/dL 3.9 0.4 Latest Ref Rng & Units 08/29/2015 RF and CCP Rheumatoid Factor <20 IU/mL 406 CCP Antibody, IgG <20 Units >250 Latest Ref Rng & Units 08/29/2015 12/01/2023 Hepatitis Screen Hep B Core Ab, Total Negative Negative Negative Hep B Surf Ab Qual Negative Negative Hep C Antibody IA Negative Negative Negative Hep B Surface Ag Negative Negative HBsAg Negative Negative 08/29/2015 02/07/2016 02/10/2018 12/01/2023 TB Screen TB Interpretation No evidence of current or previous infection with Mycobacterium tuberculosis. No evidence of current or previous infection with Mycobacterium tuberculosis. No evidence of current or previous infection with Mycobacterium tuberculosis. Infection with M. tuberculosis complex is unlikely. If latent tuberculosis infection is highly suspected, a negative result does not rule out the infection. Specimens from immunocompromised patients and those <5 years of age may show false negative results. In case of a contact investigation, please repeat 8-12 weeks after a known exposure. TB Result Negative Negative Negative Negative Latest Ref Rng & Units 08/29/2015 01/26/2020 Antibodies KURT Negative Positive KURT Titer Negative 1:80 KURT Pattern Atypical speckled DNA Antibody w/Confirmation <30 IU/mL <12 Sm Antibody <1.0 AI <0.2 Ribosomal CAREER RESOURCE TECHNICIAN <1.0 AI <0.2 Chromatin Antibody <1.0 AI <0.2 SSA Antibody <1.0 AI <0.2 SSB Antibody <1.0 AI <0.2 CAREER RESOURCE TECHNICIAN Antibody <1.0 AI 1.2 Scleroderma Ab, IgG <1.0 AI <0.2 Centromere Ab <1.0 AI <0.2 MILAGRO-1 ANTIBODY, IGG <1.0 AI <0.2 PT Sec 9.7 - 13.0 sec 10.3 PT INR 0.9 - 1.3 1.0 APTT 23.0 - 32.4 sec 25.4 Latest Ref Rng & Units 08/29/2015 Urinalysis Protein, Urine Negative mg/dL Negative RBC, Urine 0 - 3 /HPF >25 Latest Ref Rng & Units 08/29/2015 TPMT amd G6PD G6PD Scn Normal Normal Last XR Hand/Finger - Impression Only XR HAND GENERAL 3V PA/LAT/OBL BILATERAL Exam End: 03/14/2024 11:10 AM (Final result) Impression: IMPRESSION: Severe changes of chronic inflammatory arthritis, similar to prior. Left hand metallic foreign body. ... Last XR Foot - Impression Only XR FOOT 3VIEW/SESAMOID/WT MELISSA Collected: 08/29/2015 10:56 AM (Final result) Impression: IMPRESSION: FINDINGS CONSISTENT WITH CHRONIC SEVERE RHEUMATOID ARTHRITIS. Poster: [email or web address] Transcribe Date/Time: Aug 29 2015 12:56P ... Last XR Ankle - Impression Only XR ANKLE GENERAL 3V AP/LAT/OBL LT Exam End: 02/20/2021 8:42 AM (Final result) Impression: IMPRESSION: Arthritic changes demonstrating interval progression in this patient with known rheumatoid arthritis. Poster: CODY Transcribe Date/Time: Feb 20 2021 9:52A Dictated by : JENNIFER BOSCH MD... Last XR Shoulder - Impression Only No resulted procedures found. RELEVANT OSTEOPOROSIS LABS: Calcium Date Value Ref Range Status 08/22/2020 9.4 8.5 - 10.2 mg/dL Final 01/17/2020 9.3 8.5 - 10.2 mg/dL Final 02/10/2019 9.5 8.5 - 10.2 mg/dL Final Calcium, Total Date Value Ref Range Status 12/01/2023 10.2 8.5 - 10.2 mg/dL Final Phosphorus Date Value Ref Range Status 08/22/2020 2.8 2.7 - 4.8 mg/dL Final 01/17/2020 2.5 (L) 2.7 - 4.8 mg/dL Final 07/12/2019 2.5 (L) 2.7 - 4.8 mg/dL Final 02/10/2019 2.2 (L) 2.7 - 4.8 mg/dL Final Alkaline Phosphatase Date Value Ref Range Status 01/12/2024 211 (H) 38 - 113 U/L Final 12/01/2023 171 (H) 38 - 113 U/L Final 08/22/2020 135 (H) 38 - 113 U/L Final 02/10/2019 152 (H) 38 - 113 U/L Final PTH, Intact Date Value Ref Range Status 01/17/2020 42 15 - 65 pg/mL Final 02/10/2019 57 15 - 65 pg/mL Final 08/19/2018 43 15 - 65 pg/mL Final 08/29/2015 55 15 - 65 pg/mL Final NTX, Serum Date Value Ref Range Status 08/19/2018 16.9 5.4 - 24.2 nM BCE Final TSH Date Value Ref Range Status 08/19/2018 1.930 0.400 - 5.500 uU/mL Final Testosterone Free Date Value Ref Range Status 08/19/2018 83.1 41.7 - 180.2 pg/mL Final Comment: This test was developed and its performance characteristics determined by [facility]'s Rajeev Nasim [facility] [place] [facility] It has not been cleared or approved by the FDA. [facility] is regulated under CLIA as qualified to perform high-complexity testing. This test is used for clinical purposes. It should not be regarded as investigational or for research. Testosterone Date Value Ref Range Status 08/19/2018 387 193 - 824 ng/dL Final Comment: A testosterone level in the 193-320 ng/dL range with associated clinical symptoms is considered low and may indicate hypogonadism (from NEJ 2010 [id number]:123-135). Results >320 ng/dL are considered normal. Vitamin D 25 Hydroxy Date Value Ref Range Status 12/01/2023 63.0 31.0 - 80.0 ng/mL Final Comment: Classification of 25 OH Vitamin D status: Deficiency/Insufficiency: < or = 30 ng/ml. Sufficiency/Optimal Levels: 31-80 ng/mL Toxicity: > 100 ng/mL. Test performed by chemiluminescent immunoassay. 01/29/2022 43.5 31.0 - 80.0 ng/mL Final Comment: Classification of 25 OH Vitamin D status: Deficiency/Insufficiency: < or = 30 ng/ml. Sufficiency/Optimal Levels: 31-80 ng/mL Toxicity: > 100 ng/mL. Test performed by chemiluminescent immunoassay. 02/20/2021 44.2 31.0 - 80.0 ng/mL Final Comment: Classification of 25 OH Vitamin D status: Insufficiency/Moderate Deficiency: < or = 30 ng/mL Sufficiency/Optimal Levels: 31 to 80 ng/mL Toxicity: > 100 ng/mL Test performed by chemiluminescent immunoassay. 08/22/2020 48.4 31.0 - 80.0 ng/mL Final Comment: Classification of 25 OH Vitamin D status: Insufficiency/Moderate Deficiency: < or = 30 ng/mL Sufficiency/Optimal Levels: 31 to 80 ng/mL Toxicity: > 100 ng/mL Test performed by chemiluminescent immunoassay. Creatinine Date Value Ref Range Status 12/01/2023 0.92 0.73 - 1.22 mg/dL Final 08/22/2020 0.79 0.73 - 1.22 mg/dL Final 01/17/2020 0.83 0.73 - 1.22 mg/dL Final 02/10/2019 0.86 0.73 - 1.22 mg/dL Final Creat Clearance Date Value Ref Range Status 01/26/2020 85 - 125 mL/min Final Unable to calculate creatinine clearance. No serum creatinine available. Protein, Total Date Value Ref Range Status 12/01/2023 8.0 6.3 - 8.0 g/dL Final 01/29/2022 7.2 6.3 - 8.0 g/dL Final 08/22/2020 7.1 6.3 - 8.0 g/dL Final 08/22/2020 6.4 6.3 - 8.0 g/dL Final Albumin Date Value Ref Range Status 12/01/2023 3.9 3.9 - 4.9 g/dL Final 08/22/2020 4.4 3.9 - 4.9 g/dL Final 01/17/2020 4.0 3.9 - 4.9 g/dL Final 02/10/2019 4.5 3.9 - 4.9 g/dL Final Alpha 1 Globulin Date Value Ref Range Status 01/29/2022 0.22 0.18 - 0.31 g/dL Final 08/22/2020 0.22 0.18 - 0.31 gm/dL Final 01/26/2020 0.27 0.18 - 0.31 gm/dL Final Alpha 2 Globulin Date Value Ref Range Status 01/29/2022 0.46 (L) 0.52 - 0.97 g/dL Final 08/22/2020 0.44 (L) 0.52 - 0.97 gm/dL Final 01/26/2020 0.57 0.52 - 0.97 gm/dL Final Beta Globulin Date Value Ref Range Status 01/29/2022 0.87 0.84 - 1.36 g/dL Final 08/22/2020 0.92 0.84 - 1.36 gm/dL Final 01/26/2020 0.98 0.84 - 1.36 gm/dL Final Gamma Globulin Date Value Ref Range Status 01/29/2022 1.45 (H) 0.70 - 1.44 g/dL Final 08/22/2020 1.04 0.70 - 1.44 gm/dL Final 01/26/2020 1.22 0.70 - 1.44 gm/dL Final Interpretation (Prot Electro) Date Value Ref Range Status 01/29/2022 No definitive M protein is identified on protein electrophoresis. Final No definitive M protein is identified on protein electrophoresis. 08/22/2020 SEE COMMENT Final Comment: No definitive M protein is identified on protein electrophoresis. 01/26/2020 SEE COMMENT Final Comment: No definitive M protein is identified on protein electrophoresis. MPA IgA, Serum Date Value Ref Range Status 08/22/2020 213 70 - 400 mg/dL Final 08/19/2018 188 78 - 391 mg/dL Final MPA IgG, Serum Date Value Ref Range Status 08/22/2020 1,098 700 - 1,600 mg/dL Final 08/19/2018 1,270 717 - 1,411 mg/dL Final MPA IgM, Serum Date Value Ref Range Status 08/22/2020 167 40 - 230 mg/dL Final 08/19/2018 147 53 - 334 mg/dL Final MPA [place], Serum Date Value Ref Range Status 08/19/2018 1,020 534 - 1,267 mg/dL Final MPA Lambda, Serum Date Value Ref Range Status 08/19/2018 551 253 - 653 mg/dL Final MPA [place]/Lambda Ratio Date Value Ref Range Status 08/19/2018 1.85 1 - 3 Final IgA Date Value Ref Range Status 01/29/2022 221 70 - 400 mg/dL Final 01/26/2020 202 78 - 391 mg/dL Final 08/19/2018 198 78 - 391 mg/dL Final 08/29/2015 207 78 - 391 mg/dL Final No components found for: CTX No components found for: HOMOCYSTEINE Last XR Thoracic Spine - Impression Only No resulted procedures found. Last XR Lumbar Spine - Impression Only No resulted procedures found. Last Bone Density DXA-AXIAL SKELETON Exam End: 09/23/2022 10:03 AM (Final result) Narrative: * * *Final Report* * * DATE OF EXAM: Sep 23 2022 10:03AM LNB 0804 - BD DXA - AXIAL SKELETON / PROCEDURE REASON: multiple diagnoses * * * * Physician Interpretation * * * * EXAMINATION: DXA BONE DENSITOMETRY BD DXA - AXIAL SKELETON PATIENT DEMOGRAPHICS: Age: 57 years, Race: , Gender: Male SCANNER INFORMATION: DXA Model: Stevia First [id number] SITE SCANNED: Lumbar spine and left hip Date Scanned: 09/23/2022 10:03 AM Date of prior scan(s): 08/22/2020, 08/19/2018 CLINICAL HISTORY: DIAGNOSTIC Other osteoporosis without current pathological fracture High risk for hip fracture Bone loss Vitamin D deficiency. RISK FACTORS FOR OSTEOPOROSIS AND ASSOCIATED FRACTURES REPORTED BY THIS PATIENT: Parent with a history of HIP fracture Height loss of 1.5 inches or more Prior smoking history Ulcerative Colitis Vitamin D deficiency History of kidney stones No exercise Rheumatoid arthritis CURRENT THERAPY: Vitamin D and Multivitamin TECHNICAL LIMITATIONS: Degenerative disease of the spine L4 is/are deleted, per ISCD guidelines, because changes at this level may artificially alter the bone density measurement. -These show greater density compared to adjacent levels, greater than 1 SD. X-rays may be necessary to rule out sclerotic bone lesions or compression deformity at this level, clinical correlation recommended. Right hip(s) could not be scanned due to prior surgery RESULTS: Lumbar spine (L1-L3): 0.899 g/cm2, T-score -1.6, Lumbar spine: 2019: 0.861 g/cm2 No statistically significant change Lumbar spine: 2017: 0.845 g/cm2 Left Femoral Neck: 0.589 g/cm2, T-score -2.5, Z-score -1.6 Left Femoral Neck: 2019: 0.568 g/cm2 No statistically significant change Left Femoral Neck: 2017: 0.594 g/cm2 Left Total Hip: 0.671 g/cm2, T-score -2.4, Z-score -2.0 Left Total Hip: 2019: 0.645 g/cm2 No statistically significant change Left Total Hip: 2017: 0.688 g/cm2 CHANGE IS STATISTICALLY SIGNIFICANT IN THE SPINE OR HIP IF GREATER THAN OR EQUAL TO 0.04g/cm2 Impression: IMPRESSION: THE LOWEST T-SCORE IS -2.5 IN THE LEFT HIP 1) DIAGNOSIS (based on BMD alone): OSTEOPOROSIS The lowest T-score is used for diagnosis/impression Z-scores will be reported if <-1.0 or if > or = to+3.0 Note that if the patient's prior bone density test was consistent with osteoporosis, the clinical diagnosis remains Osteoporosis. Note that regardless of bone mineral density measurement, a patient may be clinically diagnosed with osteoporosis if they have had a prior fragility fracture. Caution: Medical conditions other than osteoporosis may cause low bone density, such as osteomalacia or renal osteodystrophy. Clinical correlation is necessary. 2) FRACTURE RISK (based on BMD alone): INCREASED Caution: Fracture risk may be increased independent of BMD in patients with corticosteroid use, age greater than 65 years, or a history of prior fragility fracture. The lowest T-score is used for diagnosis. Z-scores will be reported if <-1.0 or if > or = +3.0 RECOMMENDATIONS: Note that some medical conditions may cause low bone density, such as osteomalacia, vitamin D deficiency, multiple myeloma, renal osteodystrophy, hyperparathyroidism, hypogonadism, certain endocrinologic conditions, inflammatory arthropathies, gastrointestinal diseases and malabsorption, and certain medications such as, but not limited to, systemic steroids, anticonvulsants, clinical correlation is necessary. Evaluation of vitamin D status is recommended All patients should receive the recommended daily allowance of calcium and vitamin D, as recommended by the NOF and clinically indicated. Weight bearing exercises and strength training should be considered. Cessation of smoking and moderation of intake of alcohol, caffeine and carbonated beverages are recommended (for additional information please refer to NOF website at www.nof.org). Evaluation for secondary causes of bone loss is recommended in patients with a Z-score of less than -1.5 (see web-site for more details). Patients who have had a height loss of 1.5 inches or more since their peak height (tallest height), should be considered for evaluation of vertebral compression fractures by x-ray of the thoracic(with swimmers views) and lumbar spine. RECOMMENDATIONS FOR PHARMACOLOGIC THERAPY: National Osteoporosis Foundation (NOF) treatment recommendations (2008) Postmenopausal women and men age 50 and older presenting with the following should be treated: A hip or vertebral (clinical or morphometric) fracture T-score less than or equal to -2.5 at the femoral neck, total hip or spine after appropriate evaluation to exclude secondary causes For patients not on pharmacologic therapy for more than 2 years, the following recommendations may apply: Low bone mass (T-score between -1.0 and -2.5 at the femoral neck, total hip or spine) and 10 year probability of hip fracture greater than or equal to 3% or a 10 year probability of any major osteoporosis-related fracture greater than or equal to 20% based on the [place] adapted WHO algorithm for FRAX(TM): www.fili.ac.uk/FRAX/tool.jsp or The WHO Fracture Risk Assessment Tool at www.NOF.org PLEASE NOTE: THE DXA SCANNER USED FOR THIS PATIENT IS LISTED IN THE ABOVE DEMOGRAPHICS. THE TYPE OF SCANNER MUST BE ENTERED IN THE FRAX(TM) CALCULATOR TO CORRECT FOR DXA SCANNER VARIABILITY. PLEASE NOTE FRAX(TM) + Does not apply to premenopausal patients + DOES NOT APPLY TO TREATED OR PREVIOUSLY TREATED PATIENTS within past 2 years, please review updates from website listed above. ALL RECOMMENDATIONS AND CALCULATIONS ARE TO BE CONSIDERED GUIDELINES AND SHOULD NOT REPLACE SOUND CLINICAL JUDGMENT Follow-up in 2 years or as clinically indicated. Patients that are taking corticosteroids, are transplant recipients or have hyperparathyroidism should have annual follow-up. Follow-up scans should always be done on the same machine for accurate comparison. FOR MORE INFORMATION: [facility] [place] [facility]osis and Metabolic Bone Disease: www.ccf.org/arthritis/osteo National Osteoporosis Foundation: www.nof.org International Society of Clinical Densitometry www.iscd.org Poster: [id number] Transcribe Date/Time: Sep 23 2022 10:28A Dictated by : DARRIAN DUBON MD This examination was interpreted and the report reviewed and electronically signed by: DARRIAN DUBON MD on Sep 28 2022 6:46PM EST Patient has had multiple testing at outside facilities, would not be included in the above section Outside labs from 04/2024 scanned, reviewed ALLERGIES No Known Allergies Current Outpatient Medications Medication Sig ENTYVIO 300 mg injection sulfaSALAzine EC (AZULFIDINE EN) 500 mg EC tablet TAKE 2 TABLETS BY MOUTH 4 TIMES A DAY turmeric root extract 500 mg cap Take 500 mg by mouth once daily. Take one(1) tablet three times daily. folic acid 1 mg tablet Take 1 mg by mouth once daily. Cholecalciferol, Vitamin D3, 5,000 unit cap Take 5,000 Units by mouth once daily. patient taking once daily with food ezetimibe (ZETIA) 10 mg tablet Take 10 mg by mouth once daily. atorvastatin (LIPITOR) 20 mg tablet Take 20 mg by mouth once daily. lisinopril (ZESTRIL, PRINIVIL) 20 mg tablet Take 20 mg by mouth once daily. Omeprazole 40 mg capsule Take 40 mg by mouth once daily. CHEWABLE MULTI VITAMIN ORAL Take by mouth. No current facility-administered medications for this visit. PHYSICAL EXAM BP 128/76 Pulse 66 Wt 77.7 kg (171 lb 4.8 oz) BMI 27.66 kg/m afebrile, VSS General Appearance: WD/WN, NAD. Appropriate grooming. SKIN: No rash, no psoriasis, no purpura, no ulcers, no skin thickening/tightness, no circular telangiectasias. HEENT: No patchy alopecia, no conjunctival injection or icterus, no oral ulcers, no thrush NECK: neck supple w/o masses, no thyromegaly, no LAD. LUNGS: CTA, Good respiratory effort. HEART: RRR, - m/r/g Abd; soft, NT, I did not palpate HSM EXTREMITIES: Adequate pulses b/l UE ; No clubbing,discoloration,sclerodactyly, periungual erythema, digital ulcers, nail pitting; mild LE pitting edema with hypopigm. of skin, denies tenderness or sensitivity, no skin demarcation. MUSCULOSK: Stable multiple severe joint deformities involving the wrists, fingers, ankles and feet Wrist fusion b/l, also with ankyloses of b/l multiple fingers bony deformities of left ankle and pes planus, with valgus deformity of ankle. multiple swan neck deformities, toe deformities Rheumatoid nodules in b/l olecranon bursae stable Swoll JTS:0 Tend. JTS:0 No clinical synovitis in the DIP's, PIP's, MCP's, wrists, elbows, shoulders, knees, ankles, midfoot, or toes. No knee effusions bilateral, s/p TKR b/l Shoulder exam: ROM without pain, limitations with full abd LIMITATION of Motion of Joints: multiple as above Thoracic/Lumbar Spine: No percussion tenderness No instability in any upper or lower extremity joints. NEURO: Mental Status: alert and oriented x 3, cheerful, CN II - XII grossly intact Motor: 5/5 proximally and distally b/l Sensory: intact to fine touch Gait: non-antalgic limp sec to chronic foot deformities w/o assistive devices Tone: normal IMPRESSION/DIAGNOSIS: M05.9 Seropositive rheumatoid arthritis (HCC) (primary encounter diagnosis) M05.79 Rheumatoid arthritis 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) Z79.899 On sulfasalazine therapy K51.00 Ulcerative pancolitis (HCC) Comment: On SSZ and Entyvio, managed by GI M81.8 Other osteoporosis without current pathological fracture Z92.29 History of bisphosphonate therapy Z71.89 Counseling on health promotion and disease prevention -Chronic, severe long standing Rheumatoid Arthritis, deforming, erosive, nodular, prior to following with us Sero-positive s/p multiple joint surgeries Has multiple chronic joint deformities He has had very good response to Enbrel with remission due to med. And since switched to Humira, reports continued response. -At today's visit, the patient's Rheumatoid Arthritis does not appear to be active and has been in remission with anti-TNF therapy. Anti- TNF therapy is indicated and medically necessary for maintenance of remission in patient's severe chronic Rheumatoid Arthritis. His certified meeting professional has switched him to Humira as he feels patient would have better response to his IBD and is prescribing sulfasalazine and mesalamine (endema). -Vitamin D deficiency- corrected He is on supplements, requires monitoring due to risk of recurrent deficiencies. He reports taking 5000 international units daily with a meal, maintenance Will update labs -Osteoporosis DXA August 19, 2018 Lowest T-score -2.5 (left fem neck) No history of frag/ fractures Not currently on steroids, has had in past His OP evaluation, was normal for testost, NTX, celiac, homoc, magn, serum monocl, iPTH, calcium, vitamin D. His phos was low and improved with increased dietary phos. Testost. normal His urine monoclonal revealed M protein and we have referred him to Hematology Oncology -DXA August 22, 2020, lowest T-score -2.7 (left fem neck) Left total neck T-score -2.6 Spine T-score -1.7, stable BMD, but is unreliable due to degen. disease Bone loss at the fem neck by 6.3% I reviewed concerns for bone loss Advised on caution with steroid use and to explain to his other providers that he has Osteoporosis and bone loss, avoiding steroids when possible. I reviewed risk of bone loss and fracture and discussed guidelines and recommendations for therapy. I reviewed Reclast infusion and patient wishes to proceed. Will obtain insurance precert. Due to his gastrointestinal disease, IBD, oral bisphosphonates are contraindicated. With M protein, Forte and Tymlos need to be deferred Prolia is another option. Evenity has not been yet approved in men. I reviewed IV Reclast infusion at multiple visits. I advised him that he needs to have his dental work completed first and reviewed risk of ONJ. He has not been able to completed in 2019 or since and is looking into dental insurance. He will let us know when his dental work is completed. He is aware that dental work needs to be completed before Reclast and was advised to f/u with his dentist and relayed that he plans to. I reviewed importance of f/u with dentist and explained also that this is delaying his Osteoporosis therapy. Patient will contact me after he has completed his dental work. -DXA September 23, 2022, lowest T-score -2.5 (left fem neck) Stable BMD, no bone loss compared to 2019. He remains at risk for fracture and further bone loss, colton with he has had active IBD and had to receive intermittent steroid therapy from his certified meeting professional. Pharmacologic therapy is still indicated and recommended, however, are still awaiting completion of dental work. He was cleared by his dentist and received Reclast infusion on 05/09/2024, well tolerated No interim fractures Not currently on steroids. IBD well controlled. Vitamin D deficiency corrected. Will update DXA and follow CTX Advised on bone health recommendations. -We have referred him to Hematology Oncology for urine M protein (checked twice) RECOMMENDATION/PLAN: Office Visit on 10/05/24 DXA-AXIAL SKELETON BD DXA TRABECULAR BONE SCORE (TBS) COMPLETE BLOOD COUNT AND DIFFERENTIAL C-REACTIVE PROTEIN VITAMIN D 25 HYDROXY RENAL FUNCTION PANEL C TELOPEPTIDE, BETA Also received labs per Primary care physician, [employer] -The patient's certified meeting professional follows him for his UC, anemia and liver tests. He is on Entyvio and sulfasalazine per his [employer] RA med: none from rheum, doing well on sulfasalazine, prescribed by GI (He was prev. on Enbrel 25 mg sq twice a week, or may switch to Humira if his certified meeting professional switched him to Humira TNF inhibitor therapy, is indicated and medically necessary to keep patient's Rheumatoid Arthritis under control and in remission , maintain quality of life, and to prevent further joint damage The patient reported previously that when he was unable to receive his Enbrel in the past (prior to seeing us) he had multiple severe joint damage and had to have surgery.) Patient on sulfasalazine for his IBD per his certified meeting professional OP med: Received Reclast infusion, 5 mg IV on 05/09/2024 well tolerated Further infusions will be determined based on recheck DXA and CTX, or if on systemic steroids. As previously discussed, his OP med of choice is IV Reclast Oral bisphosphonate contraindicated due to his IBD and gastrointestinal disease. Osteoporosis was likely due to previous intermodal dispatcher steroid therapy by other physicians over the years, and has had active Rheumatoid Arthritis, IBD and vitamin D deficiency in the past. Reviewed adequate hydration, discussed reported flu like symptoms risk, and appropriate mgt, and safe dosing of acetaminophen if needed. Reviewed adequate hydration, discussed reported flu like symptoms risk, and appropriate mgt, and safe dosing of acetaminophen if needed. I reviewed risk of atypical fracture of femur and ONJ with anti-resorptive therapy. With reports and concern regarding atypical and subtroch. fracture of femur with detention use of bisphosphonates/alendronate and anti-resorptive agents, there have been recommendations for consideration for drug holiday (for 1 year or more, this has not been outlined clearly either) after completing 3 yrs (on IV Reclast) and 5 yrs (on oral bisphosphonate). We also follow bone markers and monitor for evidence of oversuppression with anti-resorptive agents. I offered additional time to address all patient's questions and answer all OP questions. Risks, benefits, alternatives, reported side effects, indication, limitations/expectation of medication(s) were discussed with patient and patient wished to proceed. Previous orders -CONSULT TO UNEMPLOYMENT SPECIALIST -CONSULT TO PODIATRY Provided referral to OT for assistive devices, exercises to preserve left function Referral to trench shovel operator for foot/ankle deformities and callus care, inserts/braces/orthotics, protective gear Informed patient on precaution for infections I also offered referral to Orthopedics Foot and Ankle specialist Reviewed vitamin D supplement I have discussed clinical implications of Vitamin D deficiency, osteomalacia, implications to bone health status, musculoskeletal pains and other reported health risks. Bone Health Recommendations: As discussed above Recheck DXA in 2 yrs from last, sooner if on chronic steroids -Bone Density: After age 70 yrs, sooner if new clinical risk factors, or systemic steroid use of 3 months or more. -Vitamin D supplementation recommended, optimal dose is the dose necessary to achieve Vitamin D 25-OH blood level in range of 40-60 ng/mL. (Vitamin D supplement in international units, is the dose necessary to achieve a Vitamin D 25-OH blood level in range of 40-60 ng/mL). -Recommended daily dose of calcium: 1200mg total a day in divided doses. Calcium from dietary sources, if not sufficient, or if with h/o calcium nephrolithiasis would recommend Calcium Citrate supplement, as it is recommended to avoid caclium carbonate products, which as main dietary calcium source. The after visit summary has information on dietary calcium and instructions on reading calcium label and converting the %DV to mg. -Regular weight-bearing and muscle-strengthening exercise -Avoidance of tobacco smoking, excessive alcohol intake and excessive caffeine intake. -Fall and fracture precautions -Continued regular dental follow up visits and good dental/gum care Following a healthy lifestyle will provide optimal chance for disease remission, decreasing risk for CV disease and common chronic diseases, and overall wellbeing. I reviewed conservative care, wellness and healthy lifestyle, as well as the benefits of a whole foods plant based diet. I have had many patients experience significant relief in musculoskeletal pains and inflammatory arthropathy, by avoiding refined sugars and dairy and following whole foods plant based diet. Additional time spent with patient on healthy lifestyle, healthy food and anti-inflammatory diet (with emphasis on whole plant based diet), avoiding refined carbs/sugars and processed food, appropriate exercise (stretching, cardio and strengthening), good sleep hygiene, stress mgt, and supplementing vital deficiencies and maintaining healthy wt and healthy BMI. Additional information provided with references and educational information. I personally reviewed his DXA scans Additional time spent on interpretation of test results. Available laboratories an their clinical significance were reviewed with the patient. Radiographs were reviewed at todays visit. Additional time was spent outside of the patient visit to review records. today. Assessment and plan were discussed with the patient. Additional time spent with the patient to discuss their questions. Additional time spent with the patient devoted to discussing treatment strategy, planning, implementation and preventive health and wellness recommendations. I spent a total of 32 minutes on the date of the service which included preparing to see the patient, [id number] patient care, completing clinical documentation, obtaining and/or reviewing separately obtained history, performing a medically appropriate examination, counseling and educating the patient/family/caregiver, ordering medications, tests, or procedures, communicating with other HCPs (not separately reported), independently interpreting results (not separately reported), communicating results to the patient/family/caregiver, and care coordination (not separately reported). F/U: Summer 2024 for RA, OP and review of DXA, sooner if needed will follow results Portions of this note have been copied from my previous note and have been updated to reflect today's visit note October 05, 2024, all reflect current medical decision making from date of this visit. The patient is following with his other physicians for his other paxton problems. Recommendations to share with Primary care physician : Dear Dr. Lackey: I had the pleasure of seeing your patient, Mr. Toscano. I have enclosed a copy of my clinic note with my assessment and recommendations for this patient. -Consider monitoring vitamin D deficiency, col[place] winter season -Consider shingrix vaccine, if not already received -Please consider avoiding steroids use, when possible, due to his bone loss and Osteoporosis. -Continuous f/u with PCP for cardiovascular disease prevention, as risk is reported to be increased in patients with RA, and for age appropriate cancer screening and routine health maintenance. For additional information ref Article: daya De La Fuente al. Rapid increase in myocardial infarctionrisk following diagnoses of rheumatoid arthritis among patients diagnosed between 1994 and 2005. Journal of Internal Medicine 2010; 268(6): 578-585. -Infection precautions and age appropriate immunization recommended. -Continued follow up with certified meeting professional for IBD management and monitoring for liver disease, as they deem necessary -I have advised on wellness and the whole plant based diet, as they have been shown to decrease risk of Rheumatoid Arthritis activity, auto-immune, inflammatory, certain gastrointestinal disorders, certain skin disorders, CV diseases, metabolic syndrome, diabetes, hyperlipidemia, HTN, cancer, obesity, macular degeneration, certain degenerative disorders, bone loss, osteoporosis and multiple other chronic health disorders, and be in favor of general health. Thank you for allowing me to participate in the care of your patient. Darrian Fischer MD Jose L Lackey MD [address] [place] [address] documented in this encounter [facility] 06-03-2024 Note Progress Note-Blake shell Patient: JAM TOSCANO Age: 59 years Sex: Male : 1965 Associated Diagnoses: None Author: Kody Ramos Jr., DO Postoperative Information Postoperative disposition: Postoperative disposition: Home. Optimetrix number: Optimetrix number [id number]. Anesthetic utilized: General. Physical Examination Vital Signs 06/03/2024 10:50 EDT Heart Rate Monitored 66 bpm Respiratory Rate Monitored 15 br/min Systolic Blood Pressure 97 mmHg Diastolic Blood Pressure 70 mmHg SpO2 97 % 06/03/2024 10:45 EDT Heart Rate Monitored 70 bpm Respiratory Rate Monitored 14 br/min Systolic Blood Pressure 94 mmHg Diastolic Blood Pressure 66 mmHg SpO2 96 % 06/03/2024 10:41 EDT Temperature Temporal Artery 36.5 DegC Heart Rate Monitored 73 bpm Respiratory Rate Monitored 17 br/min Systolic Blood Pressure 89 mmHg Diastolic Blood Pressure 63 mmHg SpO2 90 % Pain Assessment: Controlled. General: Awake, Alert, Appropriate. Respiratory: Adequate air exchange, Non-labored. Cardiovascular: Stable, Normal peripheral perfusion. Neurological: Neurologic exam at baseline. No changes.. Assessment Anesthetic outcome No anesthetic complications noted. No nausea/vomiting. Review / Management Condition: Stable. Plan Transfer/Discharge: Transfer/Discharge Discharge when meets criteria ( From PACU to Ambulatory Surgery Unit, and To home ). [facility] Comment on above: Result Comment: Elec tronically Signed By: Kody Ramos Jr., DO\.br\Date and Time Signed: 06/03/24 11:24 EDT 06-03-2024 Note Patient Education - Text Colonoscopy Care After Surgery Please read the instructions outlined below and refer to this sheet in the next few weeks. These discharge instructions provide you with general information on caring for yourself after you leave the hospital. Your doctor may also give you specific instructions. While your treatment has been planned according to the most current medical practices available, unavoidable complications occasionally occur. If you have any problems or questions after discharge, please call your doctor. ACTIVITY You may resume your regular activity, but move at a slower pace for the next 24 hours. Take frequent rest periods for the next 24 hours. Walking will help get rid of the air and reduce the bloated feeling in your abdomen (belly). No driving for 24 hours (because of the anesthesia (medicine) used during the test). You may shower. Do not sign any important legal documents or operate any machinery for 24 hours (because of the anesthesia used during the test). NUTRITION Drink plenty of fluids. You may resume your normal diet as instructed by your doctor. Begin with a light meal and progress to your normal diet. Heavy or fried foods are harder to digest and may make you feel nauseated (sick to your stomach). Avoid alcoholic beverages for 24 hours or as instructed. MEDICATIONS You may resume your normal medications unless your doctor tells you otherwise. WHAT YOU CAN EXPECT TODAY Some feelings of bloating in the abdomen. Passage of more gas than usual. Spotting of blood in your stool or on the toilet paper. FOLLOW-UP Your doctor will discuss the results of your test with you. SEEK IMMEDIATE MEDICAL ATTENTION IF: There is more than a spotting of blood in your stool. There is abdominal distention (your abdomen is swollen). There is vomiting. You have a temperature over 101.5 F. There is abdominal pain or discomfort that is severe or gets worse throughout the day. Diverticulosis Many people have small pouches in their colon called diverticulum. The diverticulum bulge outward through weak spots in the colon. You could have one or more of these pouches in the colon. The condition of having these pouches in the colon is called diverticulosis or diverticular disease. Diverticulosis is usually diagnosed by tests to evaluate something else. For example, you may have had a colonoscopy to screen for colon cancer when the diverticulosis was found. Most people with diverticulosis do not have any discomfort or problems. If symptoms develop, they may include mild cramps, bloating, and constipation. A complication of this condition is called diverticulitis. This is when the diverticulum become inflamed and infected. How to treat diverticulosis: Increasing the amount of fiber in the diet may reduce symptoms of diverticulosis and prevent complications such as diverticulitis (infected diverticuli). Fiber keeps stool soft and lowers pressure inside the colon so that bowel contents can move through easily. You should eat 20 to 35 grams of fiber each day. The table below shows the amount of fiber in some foods that you can easily add to your diet. Adding fiber slowly may decrease the bloating and fullness sometimes felt with an immediate high fiber diet. The doctor may also recommend taking a fiber product such as Citrucel or Metamucil once a day. In the past people with diverticulosis were to avoid nuts, corn, and seeds. This has not been found to be true. If you find that certain foods create cramping or bloating, avoid that food. Foods high in fiber include: Fresh fruits, fresh vegetables, legumes (beans), whole wheat bread, bran muffins or cereal, and nuts. See the table below for examples of high fiber foods. Remember, your goal is 20-35 grams per day. Amount of fiber in different foods Food Serving Grams of fiber Fruits Apple (with skin) 1 medium apple 4.4 Banana 1 medium banana 3.1 Oranges 1 orange 3.1 Prunes 1 cup, pitted 12.4 Juices Apple, unsweetened, w/added ascorbic acid 1 cup 0.5 Grapefruit, white, canned, sweetened 1 cup 0.2 Grape, unsweetened, w/added ascorbic acid 1 cup 0.5 [place] 1 cup 0.7 Vegetables Cooked Green beans 1 cup 4.0 Carrots 1/2 cup sliced 2.3 Peas 1 cup 8.8 Potato (baked, with skin) 1 medium potato 3.8 Raw [place] (with peel) 1 cucumber 1.5 Lettuce 1 cup shredded 0.5 Tomato 1 medium tomato 1.5 Spinach 1 cup 0.7 Legumes Baked beans, canned, no salt added 1 cup 13.9 Kidney beans, canned 1 cup 13.6 Salmon beans, canned 1 cup 11.6 Lentils, boiled 1 cup 15.6 Breads, pastas, flours Bran muffins 1 medium muffin 5.2 Oatmeal, cooked 1 cup 4.0 White bread 1 slice 0.6 Whole-wheat bread 1 slice 1.9 Pasta and rice, cooked Macaroni 1 cup 2.5 Rice, brown 1 cup 3.5 Rice, white 1 cup 0.6 Spaghetti (regular) 1 cup 2.5 Nuts Almonds 1/2 cup 8.7 Peanuts 1/2 cup 7.9 Chart from [facility] 2 (more content not included)... [facility] 06-03-2024 Note Colonoscopy Procedur e Report Patient: JAM TOSCANO Age: 59 years Sex: Male : 1965 Associated Diagnoses: None Author: Asim Jaquez MD Pre-Procedure Procedure Date 06/03/2024 10:42:00 . Procedure Type: Colonoscopy with removal of tumor(s), polyp(s), or other lesion(s) by cold snare technique. Procedure provider Performed by Asim Jaquez MD. Current history and physical Documented on chart. Colonoscopy ([id number]) on 02/26/2024 at 58 Years. Colonoscopy ([id number]) on 03/23/2023 at 57 Years. Cystoscopy ([id number]) on 02/04/2021 at 55 Years. Colonoscopy ([id number]). right hip replacement ([id number]). replacement on both knees ([id number]). Hernia repair ([id number]).. Past Medical History Resolved Extreme obesity ([id number]) : Resolved. Ulcerative colitis ([id number]): Resolved.. Family History . Procedure History Colonoscopy ([id number]) on 02/26/2024 at 58 Years. Colonoscopy ([id number]) on 03/23/2023 at 57 Years. Cystoscopy ([id number]) on 02/04/2021 at 55 Years. Colonoscopy ([id number]). right hip replacement ([id number]). replacement on both knees ([id number]). Hernia repair ([id number]).. Colorectal neoplasm risk assessment High risk Previous history of polyps. . Informed Consent After discussing the rationale, risks and benefits, and alternatives to this procedure, the patient provided signed consent for the procedure. Pre-procedure diagnosis: History of colon polyps. Medications (Selected) Inpatient Medications Ordered Lactated Ringers IV Dawn 1000 mL 1,000 mL: 1,000 mL, IV, 100 mL/hr, Routine, Start date 06/03/24 9:02:00 EDT, 10 hour(s), Total volume (mL): 1,000 Sodium Chloride 0.9% IV Dawn 1000 mL 1,000 mL: 1,000 mL, IV, 20 mL/hr, Routine, Start date 06/03/24 6:43:00 EDT, 50 hour(s), Total volume (mL): 1,000 Prescriptions Prescribed Entyvio 300 mg intravenous injection: See Instructions, 300 mg/kg at week 0, 2 & 6 then 300 mg/kg every 8 weeks, # 1 EA, Refills(s) 6, called to pharmacy (Rx) Nexium 40 mg Cap-EC: 40 mg = 1 cap(s), Oral, Daily, # 90 cap(s), Refills(s) 3, called to pharmacy (Rx) Documented Medications Documented Multivitamins and Minerals: 1 tab, Oral, Daily, Refill(s) 0, Prophylaxis Turmeric: 400 mg, Oral, Daily, Refill(s) 0, Prophylaxis Zetia 10 mg Tab: 10 mg = 1 tab(s), Oral, Daily, Refills(s) 0, High cholesterol atorvastatin 20 mg Tab: 20 mg = 1 tab(s), Oral, Daily, Refills(s) 0, High cholesterol cholecalciferol 5000 intl units oral capsule: Oral, Daily, Refills(s) 0, Prophylaxis folic acid 1 mg Tab: 1 mg = 1 tab(s), Oral, Daily, Refills(s) 0, Prophylaxis lisinopril 20 mg Tab: 20 mg = 1 tab(s), Oral, Daily, Refills(s) 0, High blood pressure omeprazole 40 mg Cap-DR: 40 mg = 1 cap(s), Oral, Daily, Refills(s) 0 sulfasalazine: 500 mg, Oral, QID, Refills(s) 0 Anticoagulant/antiplatelet None. ASA Classification: Class II. . Monitoring: See anesthesia record. . Procedure The procedure was performed in the hospital. See anesthesia record for sedation given during procedure. The patient was positioned starting in the left lateral decubitus position. Endoscope type used was an adult-size. The endoscope was lubricated then introduced through the anus. The scope was advanced to the cecum. No difficulties encountered during the procedure. The bowel preparation quality was good and was adequate (see polyps greater than or equal to 6 millimeters). The patient tolerated the procedure well. Time to Cecum: 1 min Withdrawal time 25 min Last colonoscopy: 2023 Findings 1. Normal rectal exam 2. Two mm sessile polyp measuring x3 seen in the cecum, transverse, and descending colon resected with cold snare completely 3. Five mm sessile polyp in the descending colon s/p resection using cold snare 4. Sessile patch in the upper rectum with abnormal surface, samples obtained using cold snare but not removed entirely 5. Diverticulosis, Internal hemorrhoids The whole exam was done under [facility] Images Procedure images: Rec1_hd_video_2023__[id number]. jpg Rec1_hd_video_2023__[id number]. jpg Rec1_hd_video_2023__[id number]. jpg Rec1_hd_video_2023__[id number]. jpg Rec1_hd_video_2023__[id number]. jpg Rec1_hd_video_2023__[id number]. jpg Rec1_hd_video_2023__[id number]. jpg Rec1_hd_video_2023__[id number]. jpg Rec1_hd_video_2023__[id number]. jpg Rec1_hd_video_2023__[id number]. jpg Rec1_hd_video_2023__[id number]. jpg (Inserted Image. Perla (more content not included)... [facility] Comment on above: Other Comment: Sheila trinh Attachment - attachment storage system not supported [id number] Can be viewed in source systemMissing Attachment - attachment storage system not supported [id number] Can be viewed in source systemMissing Attachment - attachment storage system not supported [id number] Can be viewed in source systemMissing Attachment - attachment storage system not supported [id number] Can be viewed in source systemMissing Attachment - attachment storage system not supported [id number] Can be [facility] Attachment - attachment storage system not supported [id number] Can be viewed in source systemMissing Attachment - attachment storage system not supported [id number] Can be viewed in source systemMissing Attachment - attachment storage system not supported [id number] Can be viewed in source systemMissing Attachment - attachment storage system not supported [id number] Can be [facility] Attachment - attachment storage system not supported [id number] Can be viewed in [facility] Attachment - attachment storage system not supported [id number] Can be viewed in [facility] Attachment - attachment storage system not supported [id number] Can be viewed [facility] Attachment - attachment storage system not supported [id number] Can be viewed [facility] Attachment - attachment storage system not supported [id number] Can be viewed in source system 06-03-2024 Note Colonoscopy Procedur e Report Patient: JAM TOSCANO Age: 59 years Sex: Male : 1965 Associated Diagnoses: None Author: Asim Jaquez MD Pre-Procedure Procedure Date 06/03/2024 10:40:00 . Procedure Type: Esophagogastroduodenoscopy with biopsy. Procedure provider Performed by Asim Jaquez MD. Current history and physical Documented on chart. Informed Consent After discussing the rationale, risks and benefits, and alternatives to this procedure, the patient provided signed consent for the procedure. Pre-procedure diagnosis: dyspepsia. Medications (Selected) Inpatient Medications Ordered Lactated Ringers IV Dawn 1000 mL 1,000 mL: 1,000 mL, IV, 100 mL/hr, Routine, Start date 06/03/24 9:02:00 EDT, 10 hour(s), Total volume (mL): 1,000 Sodium Chloride 0.9% IV Dawn 1000 mL 1,000 mL: 1,000 mL, IV, 20 mL/hr, Routine, Start date 06/03/24 6:43:00 EDT, 50 hour(s), Total volume (mL): 1,000 Prescriptions Prescribed Entyvio 300 mg intravenous injection: See Instructions, 300 mg/kg at week 0, 2 & 6 then 300 mg/kg every 8 weeks, # 1 EA, Refills(s) 6, called to pharmacy (Rx) Nexium 40 mg Cap-EC: 40 mg = 1 cap(s), Oral, Daily, # 90 cap(s), Refills(s) 3, called to pharmacy (Rx) Documented Medications Documented Multivitamins and Minerals: 1 tab, Oral, Daily, Refill(s) 0, Prophylaxis Turmeric: 400 mg, Oral, Daily, Refill(s) 0, Prophylaxis Zetia 10 mg Tab: 10 mg = 1 tab(s), Oral, Daily, Refills(s) 0, High cholesterol atorvastatin 20 mg Tab: 20 mg = 1 tab(s), Oral, Daily, Refills(s) 0, High cholesterol cholecalciferol 5000 intl units oral capsule: Oral, Daily, Refills(s) 0, Prophylaxis folic acid 1 mg Tab: 1 mg = 1 tab(s), Oral, Daily, Refills(s) 0, Prophylaxis lisinopril 20 mg Tab: 20 mg = 1 tab(s), Oral, Daily, Refills(s) 0, High blood pressure omeprazole 40 mg Cap-DR: 40 mg = 1 cap(s), Oral, Daily, Refills(s) 0 sulfasalazine: 500 mg, Oral, QID, Refills(s) 0 Anticoagulant/antiplatelet None. ASA Classification: Class II. . Monitoring: See anesthesia record. . Procedure The procedure was performed in the hospital. See anesthesia record for sedation given during procedure. The patient was positioned starting in the left lateral decubitus position and with safety measures. Endoscope type used was an adult-size, introduced orally, advanced to the 2nd portion of the duodenum. No difficulty was encountered during the procedure. Views were excellent. The patient tolerated the procedure well. Findings 1. Normal esophagus. Z line at 40 cm. ? esophageal dysmotility 2. Erythema in the antrum, mild patchy. Otherwise normal stomach. Biopsies of the stomach were taken to rule out H. pylori. Bilious fluid in the stomach 3. Normal duodenum. Images Procedure images: Rec_hd_video_2023__09___[id number]. jpg Rec_hd_video_2023__09___911. jpg Rec_hd_video__[id number]. jpg Rec1_hd_video_2023__[id number]. jpg Rec1_hd_video__T09_[id number]. jpg Rec1_hd_video__T09_[id number]. jpg Rec1_hd_video_2023__T09_[id number]. jpg Rec1_hd_video_2023__[id number]. jpg Rec1_hd_video_2023__T09_[id number]. jpg . Post-Procedure Complications: none. Estimated blood loss: minimal. Specimens: sent to pathology. Devices/ implants: none left in place. Impression and Plan Gastropathy and bilious fluid in the stomach probable esophageal dysmotility Recommendations: -Resume previous diet -Resume home medications -Await pathology results, follow in GI clinic in 1-2 after discharge [facility] Comment on above: Other Comment: Sheila trinh Attachment - attachment storage system not supported [id number] Can be viewed in source systemMissing Attachment - attachment storage system not supported [id number] Can be viewed in source systemMissing Attachment - attachment storage system not supported [id number] Can be viewed in source systemMissing Attachment - attachment storage system not supported [id number] Can be viewed in source systemMissing Attachment - attachment storage system not supported [id number] Can be viewed in source systemMissing Attachment - attachment storage system not supported [id number] Can be viewed in source systemMissing Attachment - attachment storage system not supported [id number] Can be viewed in source systemMissing Attachment - attachment storage system not supported [id number] Can be viewed in source systemMissing Attachment - attachment storage system not supported [id number] Can be viewed in source system 06-03-2024 Note Progress Note-Physic sumaya Patient: JAM TOSCANO Age: 59 years Sex: Male : 1965 Associated Diagnoses: None Author: Kody Ramos Jr., DO Preoperative Information Anesthesia history: Patient history: No prior anesthetic problems. Informed consent: Signed by patient. Re-evaluation prior to induction: Initial evaluation reviewed: No significant change. Review of Systems Respiratory: Negative except as documented in history of present illness. Cardiovascular: Negative except as documented in history of present illness. Health Status Allergies: Allergic Reactions (Selected) No Known Medication Allergies, Allergies (1) Active Severity Reaction No Known Medication Allergies None Documented Current medications: (Selected) Inpatient Medications Ordered Lactated Ringers IV Dawn 1000 mL 1,000 mL: 1,000 mL, IV, 100 mL/hr, Routine, Start date 06/03/24 9:02:00 EDT, 10 hour(s), Total volume (mL): 1,000 Sodium Chloride 0.9% IV Dawn 1000 mL 1,000 mL: 1,000 mL, IV, 20 mL/hr, Routine, Start date 06/03/24 6:43:00 EDT, 50 hour(s), Total volume (mL): 1,000 Prescriptions Prescribed Entyvio 300 mg intravenous injection: See Instructions, 300 mg/kg at week 0, 2 & 6 then 300 mg/kg every 8 weeks, # 1 EA, Refills(s) 6, called to pharmacy (Rx) Nexium 40 mg Cap-EC: 40 mg = 1 cap(s), Oral, Daily, # 90 cap(s), Refills(s) 3, called to pharmacy (Rx) Documented Medications Documented Multivitamins and Minerals: 1 tab, Oral, Daily, Refill(s) 0, Prophylaxis Turmeric: 400 mg, Oral, Daily, Refill(s) 0, Prophylaxis Zetia 10 mg Tab: 10 mg = 1 tab(s), Oral, Daily, Refills(s) 0, High cholesterol atorvastatin 20 mg Tab: 20 mg = 1 tab(s), Oral, Daily, Refills(s) 0, High cholesterol cholecalciferol 5000 intl units oral capsule: Oral, Daily, Refills(s) 0, Prophylaxis folic acid 1 mg Tab: 1 mg = 1 tab(s), Oral, Daily, Refills(s) 0, Prophylaxis lisinopril 20 mg Tab: 20 mg = 1 tab(s), Oral, Daily, Refills(s) 0, High blood pressure, Home Medications (9) Active atorvastatin 20 mg Tab 20 mg = 1 tab(s), Oral, Daily cholecalciferol 5000 intl units oral capsule , Oral, Daily Entyvio 300 mg intravenous injection See Instructions folic acid 1 mg Tab 1 mg = 1 tab(s), Oral, Daily lisinopril 20 mg Tab 20 mg = 1 tab(s), Oral, Daily Multivitamins and Minerals 1 tab, Oral, Daily Nexium 40 mg Cap-EC 40 mg = 1 cap(s), Oral, Daily Turmeric 400 mg, Oral, Daily Zetia 10 mg Tab 10 mg = 1 tab(s), Oral, Daily , Medications (2) Active Scheduled: (0) Continuous: (2) Lactated Ringers 1,000 mL 1,000 mL, IV, 100 mL/hr Sodium Chloride 0.9% 1,000 mL 1,000 mL, IV, 20 mL/hr PRN: (0) Problem list: All Problems Acute diarrhea / SNOMED CT 0208816105 / Confirmed Adenomatous colon polyp / SNOMED CT 8103453115 / Confirmed Bladder mass / SNOMED CT 0725697706 / Confirmed Bladder stone / SNOMED CT 110416094 / Confirmed BPH with urinary obstruction / SNOMED CT 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 / Confirmed Continuous severe abdominal pain / SNOMED CT 09633583 / Confirmed Gross hematuria / SNOMED CT 104260655 / Confirmed Heartburn / SNOMED CT 79312418 / Confirmed Hematochezia / SNOMED CT 0954396654 / Confirmed History of colon polyps / SNOMED CT 5596514129 / Confirmed Hyperlipemia / SNOMED CT 03074024 / Confirmed Incomplete bladder emptying / SNOMED CT 873538303 / Confirmed Kidney stones / SNOMED CT 363531875 / Confirmed Prostate calculus / SNOMED CT 699573509 / Confirmed Rectal bleed / SNOMED CT 132145392 / Confirmed Ulcerative colitis, universal / SNOMED CT 0989882672 / Confirmed Debary ulcerative colitis / SNOMED CT 0251766423 / Confirmed Urethral stone / SNOMED CT 46521583 / Confirmed Resolved: Extreme obesity / SNOMED CT [id number] Resolved: Ulcerative colitis / SNOMED CT 835576435 Canceled: Ulcerative colitis / SNOMED CT 474517562 Histories Past Medical History: Resolved Extreme obesity ([id number]) : Resolved. Ulcerative colitis (609296829): Resolved. Procedure history: Colonoscopy ([id number]) on 02/26/2024 at 58 Years. Colonoscopy ([id number]) on 03/23/2023 at 57 Years. Cystoscopy ([id number]) on 02/04/2021 at 55 Years. Colonoscopy ([id number]). right hip replacement ([id number]). replacement on both knees (180865792). Hernia repair ([id number]). Social History Social & Psychosocial Habits Alcohol 03/04/2024 Risk Assessment: Denies Alcohol Use Comment: bryson - 01/14/2023 08:52 - Garcia, Tamiko I Exercise 03/04/2024 Risk Assessment: Occasional exercise Other 03/04/2024 Name: Caffiene- Coffee 1 cup daily Substance Abuse 03/04/2024 Risk Assessment: Denies Substance Abuse Comment: bryson - 01/14/2023 08:52 - Garcia, Tamiko I Tobacco 03/04/2024 Risk Assessment: Denies Tobacco Use 03/04/2024 Tobacco Use: Former smoker, quit more Smokeless tobacco use: Never 03/04/2024 Tobacco Use: Former smoker, quit more Smokele (more content not included)... [facility] Comment on above: Result Comment: Elec tronically Signed By: Kody Ramos Jr., DO.sania\Date and Time Signed: 06/03/24 09:03 EDT 05-09-2024 Note HNO ID: [id number] Author: TERESA FALLON, RN Service: ? Author Type: Registered Nurse Type: Progress Notes Filed: 05/09/2024 10:52 Note Text: FOR RECLAST, IV BONIVA OR PROLIA ONLY: Have you had: Any recent invasive dental work (tooth extractions, dental implants, jaw surgery ect) within the last 6 months? No Any anticipated invasive dental procedures within the next 6 months? No [ I typically use 6 months but not sure what gals prefer ] 3. Any jaw pain? No 4. Any recent infections? No 5. Taking antibiotics for current infection? No [facility] 05-09-2024 History of Present illness Narrative FOR RECLAST, IV BONIVA OR PROLIA ONLY: Have you had: Any recent invasive dental work (tooth extractions, dental implants, jaw surgery ect) within the last 6 months? No Any anticipated invasive dental procedures within the next 6 months? No [ I typically use 6 months but not sure what gals prefer ] 3. Any jaw pain? No 4. Any recent infections? No 5. Taking antibiotics for current infection? No documented in this encounter [facility] 05-09-2024 Instructions Nidia Weston, ADEOLA.[facility] - 05/09/2024 9:45 AM EDT -PLEASE NOTE THAT WE REVIEW ALL YOUR TEST RESULTS AT YOUR NEXT FOLLOW UP VISIT WITH YOU. IF ANY ABNORMAL LAB REQUIRES SOONER ATTENTION, WE WILL CONTACT YOU. -If you have signed up on Datalot, we will release your test results through Datalot. I wish you the best of health and wellness. Please take care and stay safe and healthy. Consume a healthy diet, stay well hydrated, sleep well, be happy, improve stress (include meditation), exercise regularly. Spend some time in nature, around trees and osborn (forest bathing) and enjoy half an hour daily in the sun when possible (and benefit from its natural near infrared light, also your skin will be able to produce natural vitamin D). These have been shown to help with wellbeing, promoting a healthy immune system and healing. Instructions and Recommendations: You are on These are also treating your Rheumatoid Arthritis. 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 Supplements recommended Vitamin B12: 500 to 1000 mcg once daily Vitamin D: 5000 international units once daily with meals multivitamin - Maintaining good vitamin D blood levels is important for bone health and overall health. Please see additional information on vitamin D below. A vitamin D blood test, called vitamin D 25-hydroxy (OH) is obtained to assess vitamin D level. If the vitamin D is low, you will need to take a vitamin D supplement. If you are already on a vitamin D supplement, then the dose will need to be adjusted. Also you multivitamin may contain vitamin D. Vitamin D is a fat soluble vitamin that requires it be taken with good fat to be absorbed. Examples of healthy fat include nuts, seeds, avocados, olives and for the most part the meal of the day. Spending up to 30 minutes in the sun during Summer and late Spring can provide natural vitamin D to the uncovered skin (arms, legs) - Your calcium can be sufficient in your diet. Healthy food that are rich in calcium include: nuts, seeds, legumes/beans, peas, dark green leafy vegetables, plant based milk Additional calcium rich foods listed below - Soaking Almonds overnight in the fridge with drinking water, can help with softening the almonds and improved absorption of the almonds. Please be careful not to break a tooth with dry raw almonds, or other hard nuts or seeds. If your lab work shows insufficient calcium or you are unable to consume sufficient foods rich in calcium, then a calcium supplement is recommended, such as calcium citrate. - You can track your nutrition and calcium intake on www.[employer].XING This provides macro and micronutrient intake and requirements. - You can track your calcium intake on [employer] or any other calcium tracker of your choice. If you are not getting about 1200 mg of calcium daily, you will need to add a calcium supplement, such as calcium citrate to supplement you daily calcium so you can achieve your total 1200 mg daily See additional information below on calcium. Please continue following with your dentist every 6 months If you are on Osteoporosis medication, please inform your dentist as invasive dental work with these medications can increase one's risk for ONJ (osteonecrosis of the jaw). Please continue with good oral hygiene and dental care - Please do your best follow, as close as you can, a Whole Food Plant Based diet lifestyle. It is important to avoid unhealthy foods and increase healthy and disease fighting foods. -Review the information provided below. -Start by avoiding all dairy. You can use non-dairy plant based alternatives -Decrease the amount of meat and animal product you consume. For your Ulcerative Colitis it is best to avoid all animal protein. If you need to consume a burger, you can chose a plant based burger. -Avoid fried food and cooking with oil, butter, ghee or fat, as much as possible. You can stir marshall your vegetables with vegetable broth or water. You can use an air fryer for crisping vegetables. Consider broiling, roasting your vegetables or steaming them. -Avoid consuming a lot of over processed foods and ones that contain artifical additives. -Learn 5 recipes that are plant based that you can cook comfortably and that you really like. Then cook at least one of these recipes every week. If you are unable to cook and prefer to have food prepared or delivered to you, you can order healthy plant based food at multiple sites available now for a cost, such as at www.Deskom. -When eating a whole food plant based diet, remember to eat well and sufficiently, as plant foods are naturally lower in calories. Make your plate contain starchy food, whole grains, non-starchy vegetables (such as green) and legumes/beans/tofu/tempeh. You can use tofu, soy curls, tempeh, mushrooms, lentils, beans, walnuts as meat substitutes in cooking. You can consume raw unsalted nuts and seeds as snacks or in your salads. Consume fruits during the day. The vegetables can purchased be fresh or frozen. -Remember to hydrate well with water. - I recommend following a healthy lifestyle. You can find additional information below. I recommend this to all my patients, as I have seen convincing scientific evidence, and seen the results in my practice, of the benefits of this healthy lifestyle to overall health and wellness. I hope you will find this beneficial as well. A whole plant based diet and healthy lifestyle have been reported to be optimal for health in general, anti-inflammatory diet, prevention of common chronic diseases, healthy weight management, memory and brain healthy, bone health. - You can track your nutrition and calcium intake on www.cronometer.com This provides macro and micronutrient intake and requirements. Recommendations for healthy lifestyle include: Healthy nutritious diet, anti-inflammatory diet, appropriate exercise, good sleep hygiene, stress management, supplementing vital deficiencies and maintaining healthy weight. with BMI that does not exceed 25 to 26 . 5 points to remember to improve your health and continue on a healthy path: 1- Optimal nutritious food, such as a Whole Plant Based diet You can watch the documentary movie that features the Whole Plant Based diet, [place] over knives (see video online and visit website). Another movie that was recently released is: Eating You Alive (you can find it at QuadROI.XING) and The Game Changers movie Dr. Fauzia Ansari is a [facility] physician who is an expert in Whole Plant based diet. His website is [employer]. His research highlights the benefits of the Whole food plant based diet in reversing and preventing heart disease. Mrs. Ansari (his ) has a cookbook with many recipes on whole plant based food: The Prevent and Reverse Heart Disease cookbook. You can also consider reading his son, zEe Ansari's book: The Engine 2 cookbook Eze is a retired tree shear operator who has helped many people get healthier by following the whole food plant based diet. Dr. Rock Velazco, has a website and free claudia to help get started on a whole plant based diet, at www.gestigon.Cyan [employer]ics and you can log on for free for his 21-Day Kickstart with meals and recipes to follow for 21 days. There is also a free claudia for that. He has multiple free videos and YouTube, for example: https://youSplurgyu.be/dvpBkksV4g0 , https://youGenetic Technologies.be/CkXJFiksj2b He has written multiple books, including Power Food for the Brain, The Cheese Trap, Dr. Rock Velazco's Program for Reversing Diabetes, Your Body in Balance Dr. Anthony Carlson has shown the benefit of a starch based whole food plant based diet to his Rheumatoid Arthritis patients, as well as patient with diabetes II, hypertension, obesity, multiple sclerosis, heart disease, acne, and other, his website: www.debra.XING Dr. Yayo Allred is a renowned non destructive testing scientist, who has studied and researched the benefits of the Whole plant based diet. He has also researched the adverse effects of animal proteins on health. He presents many of his research findings in his book The [place] study. Dr. Gerber Becker has completed many research trials proving the reversal of diseases, such as heart disease and early prostate cancer, with healthy lifestyle and the Whole Plant based diet. Dr. Gerber Becker website is: www.[email or web address] [email or web address] His new book: Undo It, has evidence based information and guide to following this healthy lifestyle. Dr. Cody Dillon has dedicated a website and additional time to reviewing all food related articles and research and presents them in his power point presentation and on his website at: nutritionfacts.org which is all free. Dr. Dillon has multiple free videos and YouTube, for example https://youtu.be/aSgNkhgVtks and https://youtu.be/lXXXygDRyBU. He has written multiple books including: How Not To and How Not To Diet He is now working on his next book: How Not To Age Dr. Danitza Dash (from the [facility]), has articles on the following website: EchoSign Also, you could find additional information on practical to follow recipes by reading or watching online and YouTube such as: Fur Blower AJ, Cooking With Plants, The Vegan Corner (recipes from an Chinese Fur Blower), The Whole Foods Plant Based Cooking Show and visiting the provided websites for additional information on the whole plant based benefit and cooking recipes. You can also consider watching the vlogs of some of the plant based Athletes such as Fausto Ewing Derek on PlumTV. Dr. Maryan Holguin (a psychiatrist who suffered with lupus) has helped reverse her Systemic Lupus Erythematosus and helps many patients with their auto-immune diseases, based on her recommendations of the whole food plant based diet and the green smoothies. She has a facebook and website, and on youtube her channel is: Goodbye Lupus Some people have adverse effect or intolerance to gluten. Certain patients with auto-immune disease, including auto-immune thyroid disease, need to avoid gluten. If you suspect you are gluten sensitive or intolerant, consider gluten free diet. Gluten could lead to increased inflammation in the bowels and body in certain patients. Not all your food has to be organ if you cannot afford or find them. Consider organic and non-GMO products when shopping for your food, when possible. GMO are genetically modified food that may have adverse impact on our health. If you are unable to purchase organic of non-GMO, you can wash your produce with white vinegar or soak in baking soda and water (see details from Dr. Yañez's website nutritionfacts.org) and rinse well with water. 2- Regular Exercise, such as beginner yoga, tommie chi, stretching, cardio, gradual strengthening, pool therapy, physical therapy Come As You Are: YOGA - Gentle Yoga Anyone Can Do Anywhere www.[email or web address] ([email or web address] [email or web address]).[email or web address]/yoga Also on youtube: yoga with Karlie 3- Good Sleep (poor sleep impacts everything, recommended sleep is 7.5 to 8 hrs. a night). Certain people need less or more sleep. Meditation and relaxation techniques have shown to help with improving sleep. 4- Stress management, staying positive, be happy, laugh often (it is a great medicine) Find time to relax and meditate if possible. Following steps 1-3 will help with this as well. In psychiatric disorders, it is important to follow with a professional on the optimal management of depression, anxiety or psychiatric illness 5- Supplements Supplementing necessary vitamins and minerals, correcting any deficiencies, i.e. Vitamin D, B12, omega-3 fatty acids etc... Go natural when possible -Important notice: If you are following a Whole plant based diet, it is recommended to take Vitamin B12, sublingual, dissolve under the tongue, take once daily. Vitamin B12 is available over the counter, dose could be 2500 mcg, and can be taken once a week, and if your blood levels are low, you may need to take it once daily or a higher dose. Raw: Garlic, Cilantro, Pilot nuts, Pumpkin seeds, [place] seeds and Flax seed powder have been reported to help with certain metal detoxification such as mercury. [place]-3 plant based rich foods are good anti-inflammatory sources such as : david seeds, flax seed (needs to be ground), walnuts, hemp seeds, dark green leafy vegetables. It is important to avoid refined oils as much as possible especially that many have too much omega-6 that is pro-inflammatory (lead to inflammation as well as concern for heart and vascular disease). Turmeric can be found natural, used as the spice powder or the root with your food. This is also available as a capsule. If you are on a blood thinner, you will need to discuss with your pharmacist or physician before taking Turmeric If you have gall bladder disease or gall bladder stones, it is recommended to avoid turmeric capsules. Sweet cherries (raw cleaned or frozen), Turmeric , pineapple (contains bromelain), omega-rich foods, have anti-inflammatory benefit Start reviewing the Whole Plant Based Diet, by watching [place] over [employer] movie and then review website. There are many other resources and educational information on the Whole plant based diet on the Internet and documentaries. There are other resources for wellness that you can also benefit from, such as the [facility] website, [facility]org and includes Plant based and Mediterranean diet, yoga and meditation. Please avoid all dairy products. You could use non-dairy milk such as Flax milk, Cashew milk, [place] milk, Rice milk, Oat milk or Hemp milk, instead. It is very important to avoid all: refined sugars (including high fructose syrup), refined carbohydrates, any artificial sweeteners and artificial preservatives, and soda and heavily processed food. Insure adequate hydration; drink at least 6 to 8 cups of water daily, certain people need less or more. Examples of Smoothies: Every morning you can start your day with a healthy natural anti-inflammatory smoothie, for example, you can blend: fresh or frozen sweet cherries, half a root of turmeric (1 to 2 inches), banana, blue berries, walnuts, few leaves of kale, add flax milk (or almond milk), and enjoy. You could add half an avocado if you like it smoother. If you do not tolerate walnuts, you can use flax seeds, david seeds or hemp seeds instead. If you do not like plant based milk, you can use coconut water or plain water instead. Other smoothies, including green smoothies, are also very healthy and highly anti-inflammatory. For example fruits (such as banana or frozen raul or pineapple) and add significant amount of leafy greens, then add water or coconut water and blend until smooth. You can also add turmeric in this recipe. GENERAL INFORMATION ON BONE HEALTH : -Bone Density testing (DXA scan) as recommended. -Vitamin D supplementation is recommended, unless blood levels are sufficient. Recommended daily dose of 1000 to 2000 IU total a day, or the dose necessary to achieve a Vitamin D 25-OH blood level of >31 and preferably closer to 40-60 ng/mL. Vitamin D pills are available over the counter. -Recommended daily dose of calcium: 1200mg total a day in divided doses. Calcium is usually sufficient in our regular diet, also available in multivitamins. Patients on certain dietary restrictions or those unable to meet their daily calcium by diety alone, may require calcium supplements. For patient with history of calcium kidney stones, Calcium Citrate would be the recommended supplement. It is recommended to avoid caclium carbonate supplement in this case, as these may increase risk of calcium kidney stones. The after visit summary has information on dietary calcium and instructions on reading calcium label and converting the %DV to mg. When you read a food label and you see calcium reported as DV %, add a zero and this will provide you with the approximate mg value of the calcium content in this food. For example, if a glass of almond milk is labeled as 40% calcium DV, then this contains 400 mg of calcium. For additional information, please see references provided. -Regular weight-bearing and muscle-strengthening exercise -Avoidance of tobacco smoking, excessive alcohol intake and excessive caffeine intake. -Fall and fracture precautions -It is recommend to continue regular follow up visits with your dentist every 6 months, and continue with good oral hygiene. Calcium: If your diet is sufficient in Calcium rich food, you will not need calcium supplement. Calcium Citrate is the preferred calcium if you have had kidney stones. Daily recommended calcium dose: 600mg twice a day with meals. Adequate calcium ingestion is essential for maintaining healthy bones. The recommended dose daily intake of calcium varies depending on individual needs but is usually between 1200 and 1500mg daily, preferably around 1200mg a day in divided dose (not all taken at once). This is equivalent to about five 8oz glasses of milk per day. Many foods are rich in calcium and they include: - Plant based, non-dairy, calcium rich products, include nuts, almond milk, beans, lentils - Vegetables and Fruit: bok-marin, turnips, broccoli, kale, collards, - Dairy products: milk, cheese, yogurt, ice-cream - Fish products: canned salmon, sardines and shrimp - Cereals and nuts: almonds, sesame seeds, fortified cereals and oatmeal - Other foods: fortified orange-juice, figs, soybeans, other beans and eggs. If you have a low calcium diet and cannot tolerate calcium-rich foods, many supplements are available today. Your pharmacist can help you choose the one which best suits your needs. A few tips on supplements: - They should be easy to swallow - They should dissolve easily in cup of vinegar in < 15 minutes. - Count the ELEMENTAL calcium mgs. E.g. Calcium 499mg may have only 221mg of elemental Calcium. - Calcium citrate is the calcium supplement to take if you have had kidney stones and unable to meet your calcium requirements from food/diet alone. - There is such a variety today that it is best to bring in the bottle to your doctor to show them exactly what you are taking. Lastly too much calcium can be bad for you. Recent studies show extra supplements may increase your risk of kidney stones or cause high calcium levels in some people. You should discuss how much you should be taking with your doctor before starting them. Further Information is available from the following resources: www.nof.org (National Osteoporosis Foundation) http://www.osteo.org/osteolinks.asp [place] [facility]: 3-189-514-BONE The Calcium Information [place]: -Non-Dairy, Plant based Milk, can contain in1 glass up to 450 mg of calcium (300 to 450 mg) Exampled include Oat Milk, Flax Milk, [place] Milk, Cashew Milk, Soy Milk, Peas Milk general health and well being Examples of Food Sources of Calcium from [facility] Food Milligrams (mg) per serving Percent DV* Soymilk, calcium-fortified, 8 ounces 299 30 [place] juice, calcium-fortified, 6 ounces 261 26 Tofu, firm, made with calcium sulfate, cup* 253 25 Tofu, soft, made with calcium sulfate, cup* 138 14 Uyzms-kt-jqv cereal, calcium-fortified, 1 cup 100-1,000 10-100 Turnip greens, fresh, boiled, cup 99 10 Kale, raw, chopped, 1 cup 100 10 Kale, fresh, cooked, 1 cup 94 9 Egyptian cabbage, bok marin, raw, shredded, 1 cup 74 7 Bread, white, 1 slice 73 7 Tortilla, corn, uhsbm-oj-ijqn/marshall, one 6 diameter 46 5 Tortilla, flour, lspfm-my-oflc/marshall, one 6 diameter 32 3 Bread, whole-wheat, 1 slice 30 3 Broccoli, raw, cup 21 2 * DV = Daily Value. DVs were developed by the U.S. Food and Drug Administration to help consumers compare the nutrient contents among products within the context of a total daily diet. The U.S. Department of Agriculture s (USDA s) Nutrient Database Web site lists the nutrient content of many foods and provides comprehensive list of foods containing calcium arranged by nutrient content and by food name. *Calcium content varies slightly by fat content; the more fat, the less calcium the food contains. * Calcium content is for tofu processed with a calcium salt. Tofu processed with other salts does not provide significant amounts of calcium. You could acces this information online at: http://ods.od.nih.gov/factsheets/Calci -HealthProfessional/ Vitamin D: Vitamin D3= cholecalciferol, available over the counter. Dose recommended 800 to 1000 iu daily with a meal; Certain patients require 3222-1960 iu daily and in patients deficient in Vitamin D, they require higher dosages. Certain patient requires higher dose, depending on their Vit D blood levels. Vitamin D is essential for calcium metabolism. It is really a hormone produced mainly in your skin after exposure to sunlight. Vitamin D helps you absorb calcium from your stomach and kidneys and incorporates it into your bones. Studies show approximately 50% of [place] men and women are vitamin D deficient in the winter. Milder cases of vitamin D are usually asymptomatic so the only way to know you have a problem is to have a blood level checked. More severe cases can cause osteomalacia (a.k.a. rickets) which can result in bone pain, weak bones and several abnormal laboratory tests and also weak muscles (a.k.a. myopathy). When this happens, your bones lose a lot of their calcium stores as the body tries to regulate the calcium required by other tissues. Prolonged deficiency can lead to severe bone disorders and fractures. Unlike calcium, dietary sources of vitamin D are rare, limited to a few fish oils particularly cod-liver oil, other fortified foods and egg yolks. and most are unhealthy. Natural source of vitamin D is through sunshine. This is usually during jose seasons, for example a 30 minute exposure to sunshine. Some people are unable to be exposed to the sun due to skin condition. Often supplementation is needed. Many multivitamins contain some vitamin D and vitamin D alone preparations are now available in several forms. The recommended daily intake of vitamin D used to be 400 and 800 international units, however, it is now known that larger amounts are needed, as discussed above. Your doctor can prescribe prescription strength vitamin D for you if necessary, if you have marked deficiency or diseases of the liver or kidney. Supplementation in patients with severe deficiency can stabilize or improve bone mineral density and in frail elderly persons, may reduce their risk of falling. Additional Information is available from: www.nof.org (the national osteoporosis foundation) http://www.[facility].org/arthrit is/osteo/info.htm http://ods.od.nih.gov/factsheets/vitam ind.asp [place] [facility]: 3-902-790-BONE [facility]: Review of Osteoporosis medications Medications that prevent bone loss and Osteoporosis fractures: -IV Reclast, is 5 mg intravenous infusion given once a year for Osteoporosis and once every two years for Osteopenia. This is a 15 to 20 minute infusion given at our infusion center. For that infusion, it would be important to have completed any necessary dental work and continue following with your dentist every 6 months and the recommended lab work we ordered. You would need to be well hydrated to insure good kidney function. Please insure adequate hydration with water, about 6 to 8 cups of water, the day before, the day of the infusion and the day after. Please avoid dehydration in general. Some people experience flu like symptoms and low grade fever, after the infusion. This is usually self limited and will resolve. The recommended treatment for symptom relief is taking acetaminophen/Tylenol two extra strength tablets (500mg each) every 6 hours until this has resolved, usually does not last more than 3 days. IV Reclast once a year is usually limited to no more than 3 yrs, to prevent increased risk for atypical fracture of femur. Other less potent Osteoporosis medications, such as evista and miacalcin have not been proven to prevent non-vertebral fractures Reviewed importance of regular dental care, follow up with dentist and good oral hygiene We also reviewed risk of ONJ and atypical fracture of femur Risks, benefits, alternatives, reported side effects, indication, limitations/expectation of medication(s) were discussed with patient. Written information provided for patient review. The nature of osteopenia and osteoporosis and bone thinning, as well as bone loss, was discussed with the patient as well as risk factors for osteoporosis and bone loss, as well as risk factors for fragility fractures from osteoporosis and reported associated risk of morbidity and mortality. I also informed patient that osteoporosis is a silent disease, it is asymptomatic and does not lead to pains. Patients with new bone pains require evaluation for fractures. Patients with chronic pains should not be assumed that is from osteoporosis. I also reviewed with patient risk of fragility fracture from osteoporosis and indication and recommendations by the National Osteoporosis Foundation for pharmacologic therapy and standard of care to decrease risk of OP fractures and bone loss. I reviewed indication for therapy with FDA approved osteoporosis medications with the patient and based on current guidelines and recommendations. I reviewed risk of atypical fracture of femur and ONJ with anti-resorptive therapy. With reports and concern regarding atypical and subtroch. fracture of femur with detention use of bisphosphonates/alendronate and anti-resorptive agents, there have been recommendations for consideration for drug holiday (for 1 year or more, this has not been outlined clearly either) after completing 3 yrs (on IV Reclast) and 5 yrs (on oral bisphosphonate). We also follow bone markers and monitor for evidence of oversuppression with anti-resorptive agents. I offered additional time to address all patient's questions and answer all OP questions. At [facility], we work as a team for your care, along with Nurse Practitioners, Physician Assistants, Nurses and Medical Assistants. It is a privilege and honor to serve you. Thank you for choosing [facility] for your healthcare. Sincerely, Nidia Weston APRN.MANAGER COLLECTION documented in this encounter [facility] 05-09-2024 History of Present illness Narrative Follow up Jam Toscano is a very nice 59 year old male seen for Rheumatoid Arthritis and Osteoporosis Subjective: Pain- no No falls No interim fractures No new bone pains No dental or Jaw problems or pains. Denies jaw pains Follows with dentist every 6 months Denies upcoming dental work or invasive procedures No serious infections or fevers Dr. Luis Antonio Vicente Had colonoscopy - no inflammation Biospys - no results yet ,polyps High alk phos Ordered fibroscan Needs repeat scope Patient reports: Low iron- following with Dr. Lomeli Following urology enlarged prostate Has kidney stones Pain- no No joint swelling Enlarged mcps #3 right Sleeps on flat pillow helps Some itching hands - changed back to amanda dish soap improved Stopped celebrex - does not feel he needs Following with ortho for prior knee and hip replacements Exercise- has exercise bike Sometimes not drinking enough water GI - colitis- has been calm since last treatment SSZ 2 tabs 4 times daily entyvio Calcium dietary Vit d 5000 international unit(s) daily Mesalamine nightly Tumeric daily - started by GI- tid 500mg Review of Systems CONSTITUTION: Negative for: Weight loss or gain, Fever. Chills, Night sweats HEENT: Negative for: Nosebleeds, Mouth sores, Trouble swallowing, Dry mouth RESPIRATORY: Negative for: Cough, Shortness of breath, Pain with breathing, Coughing up blood GASTROINTESTINAL: Negative for: Melena, Diarrhea, Heartburn and Abdominal pain MUSCULOSKELETAL: Negative for: Arthralgias, Myalgias, Muscle weakness, Joint swelling and Morning Joint Stiffness NEUROLOGICAL: Negative for: Headaches, Numbness, Memory loss, SKIN: Positive for: Hair loss (thinning) Negative for: Rash, Sun Sensitive Rash, Skin changes (dry skin, some itching using lotion helps) and Nail changes EYES: Negative for: Eye pain, Eye redness, Visual disturbance, Eye dryness CARDIOVASCULAR: Negative for: Chest pain, Leg swelling, Arrhythmia, Presyncope GENITOURINARY: Negative for: Dysuria, Hematuria and Ulcerations Still has a kidney stone Following with urology- will see someone else if has further issues HEMATOLOGIC/LYMPHATIC: Negative for: Swollen glands - medical history - medications - allergies - family history - social history - radiology - tests Full details in patient's emr chart Additional pertinent test results reviewed Pertinent imaging scans/films reviewed Physical Exam BP 118/79 Pulse 89 Temp 36.9 C (98.4 F) Wt 76.3 kg (168 lb 3.4 oz) SpO2 97% BMI 27.16 kg/m General Appearance: WD/WN, NAD. Appropriate grooming. SKIN: No rash, no psoriasis, no purpura, no ulcers, no skin thickening/tightness, no circular telangiectasias. Some redness on arms - sunburn HEENT: No patchy alopecia, no conjunctival injection or icterus, no oral ulcers, no thrush NECK: neck supple w/o masses, no thyromegaly, no LAD. LUNGS: CTA, Good respiratory effort. HEART: RRR, - m/r/g Abd; soft, NT, I did not palpate HSM EXTREMITIES: Adequate pulses b/l UE ; No clubbing,discoloration,sclerodactyly, periungual erythema, digital ulcers, nail pitting; mild LE pitting edema with hypopigm. of skin, denies tenderness or sensitivity, no skin demarcation. MUSCULOSK: Stable multiple severe joint deformities involving the wrists, fingers, ankles and feet Wrist fusion b/l, also with ankyloses of b/l multiple fingers bony deformities of left ankle and pes planus, with valgus deformity of ankle. multiple swan neck deformities, toe deformities Rheumatoid nodules in b/l olecranon bursae stable Swoll JTS:0 Tend. JTS:0 Enlarged mcps #3 right Left elbow contracted Stiff with rom bilateral shoulders - improved No clinical synovitis in the DIP's, PIP's, MCP's, wrists, elbows, shoulders, knees, ankles, midfoot, or toes. No knee effusions bilateral, s/p TKR b/l Shoulder exam: ROM without pain, limitations with full abd LIMITATION of Motion of Joints: multiple as above Thoracic/Lumbar Spine: No percussion tenderness No instability in any upper or lower extremity joints. NEURO: Mental Status: alert and oriented x 3, cheerful, CN II - XII grossly intact Motor: 5/5 proximally and distally b/l Sensory: intact to fine touch Gait: non-antalgic limp sec to chronic foot deformities w/o assistive devices Tone: normal ASSESSMENT: M05.79 Rheumatoid arthritis 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) (primary encounter diagnosis) E55.9 Vitamin D deficiency M81.8 Other osteoporosis without current pathological fracture Per Dr. Dubon last note -Chronic, severe long standing Rheumatoid Arthritis, deforming, erosive, nodular, prior to following with us Sero-positive s/p multiple joint surgeries Has multiple chronic joint deformities He has had very good response to Enbrel with remission due to med. And since switched to Humira, reports continued response. -At today's visit, the patient's Rheumatoid Arthritis does not appear to be active and has been in remission with anti-TNF therapy. Anti- TNF therapy is indicated and medically necessary for maintenance of remission in patient's severe chronic Rheumatoid Arthritis. His certified meeting professional has switched him to Humira as he feels patient would have better response to his IBD and is prescribing sulfasalazine and mesalamine (endema). -Vitamin D deficiency- corrected He is on supplements, requires monitoring due to risk of recurrent deficiencies. He reports taking 5000 international units daily with a meal, maintenance Will update labs -Osteoporosis DXA August 19, 2018 Lowest T-score -2.5 (left fem neck) No history of frag/ fractures Not currently on steroids, has had in past His OP evaluation, was normal for testost, NTX, celiac, homoc, magn, serum monocl, iPTH, calcium, vitamin D. His phos was low and improved with increased dietary phos. His urine monoclonal revealed M protein and we have referred him to Hematology Oncology -DXA August 22, 2020, lowest T-score -2.7 (left fem neck) Left total neck T-score -2.6 Spine T-score -1.7, stable BMD, but is unreliable due to degen. disease Bone loss at the fem neck by 6.3% I reviewed concerns for bone loss Advised on caution with steroid use and to explain to his other providers that he has Osteoporosis and bone loss, avoiding steroids when possible. I reviewed risk of bone loss and fracture and discussed guidelines and recommendations for therapy. I reviewed Reclast infusion and patient wishes to proceed. Will obtain insurance precert. Due to his gastrointestinal disease, IBD, oral bisphosphonates are contraindicated. With M protein, Forte and Tymlos need to be deferred Prolia is another option. Evenity has not been yet approved in men. I reviewed IV Reclast infusion at multiple visits. I advised him that he needs to have his dental work completed first and reviewed risk of ONJ. He has not been able to completed in 2019 or since and is looking into dental insurance. He will let us know when his dental work is completed. He is aware that dental work needs to be completed before Reclast and was advised to f/u with his dentist and relayed that he plans to. I reviewed importance of f/u with dentist and explained also that this is delaying his Osteoporosis therapy. Patient will contact me after he has completed his dental work. -DXA September 23, 2022, lowest T-score -2.5 (left fem neck) Stable BMD, no bone loss compared to 2019. He remains at risk for fracture and further bone loss, colton with his active IBD and intermittent steroid therapy from his certified meeting professional. Pharmacologic therapy is still indicated and recommended, however, are still awaiting completion of dental work. -I have referred him to Hematology Oncology for urine M protein (checked twice) and has labs ordered by them. Has not had f/u for 2 yrs. Will update labs and if abnormal will refer again. Recheck were normal Rheumatoid arthritis No pain, no joint swelling . RA in remission. no am stiffness. GI UC on entyvio now, SSZ 8 tabs daily. Tumeric. Off humira. Per GI. Only occasional cramps . No diarrhea recently. Following pcp anemia Following with ortho knees and hips- had prior replacements. Osteoporosis Here for reclast vit d 5000 international unit(s) daily . Last vit d normal. Ca normal. GFR>60 Received dental clearance No falls, no fractures, no new bone pains, no procedures planned, no s/s of infections and no antibiotics. I reviewed risk for future fragility fractures and bone loss. Reviewed indication and guideline recommendations for pharmacologic therapy Reviewed healthy lifestyle and role of diet and exercise and stress on Osteoporosis and bone loss. I have discussed FDA approved medications Written information provided to patient on OP, Ca/D, BMD, ONJ, Bone health and recommendations, OP medications. Also provided information on web for additional information if necessary, CC, NOF and ISCD and NIH. PLAN: Continue meds per GI -entyvio and sulfasalazine for your Ulcerative Colitis. Reclast today Continue b 12 and vit d Weight bearing exercise Labs prior to next visit FU visit: as scheduled Portions of this note have been copied from my previous note and have been updated to reflect today's visit note May 09, 2024 all reflect current medical decision making from date of this visit. I spent a total of 34 minutes on the date of the service which included preparing to see the patient, [id number] patient care, completing clinical documentation, obtaining and/or reviewing separately obtained history, performing a medically appropriate examination, counseling and educating the patient/family/caregiver, and ordering medications, tests, or procedures. Nidia Weston APRN.MANAGER COLLECTION Recommendations to share with Primary care physician: Dear Dr. Lackey: I had the pleasure of seeing your patient, Jam Toscano. I have enclosed a copy of my clinic note with my assessment and recommendations for this patient. -Continuous follow up with Primary care physician for cardiovascular disease prevention, for age appropriate cancer screening and routine health maintenance and wellness, and infection precautions and age appropriate immunization recommended. Thank you for allowing me to participate in the care of your patient. Nidia Weston APRN.MANAGER COLLECTION cc Jose L Lackey MD, Patient Instructions -PLEASE NOTE THAT WE REVIEW ALL YOUR TEST RESULTS AT YOUR NEXT FOLLOW UP VISIT WITH YOU. IF ANY ABNORMAL LAB REQUIRES SOONER ATTENTION, WE WILL CONTACT YOU. -If you have signed up on [employer], we will release your test results through [employer]. I wish you the best of health and wellness. Please take care and stay safe and healthy. Consume a healthy diet, stay well hydrated, sleep well, be happy, improve stress (include meditation), exercise regularly. Spend some time in nature, around trees and [place] (forest bathing) and enjoy half an hour daily in the sun when possible (and benefit from its natural near infrared light, also your skin will be able to produce natural vitamin D). These have been shown to help with wellbeing, promoting a healthy immune system and healing. Instructions and Recommendations: You are on These are also treating your Rheumatoid Arthritis. 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 Supplements recommended Vitamin B12: 500 to 1000 mcg once daily Vitamin D: 5000 international units once daily with meals multivitamin - Maintaining good vitamin D blood levels is important for bone health and overall health. Please see additional information on vitamin D below. A vitamin D blood test, called vitamin D 25-hydroxy (OH) is obtained to assess vitamin D level. If the vitamin D is low, you will need to take a vitamin D supplement. If you are already on a vitamin D supplement, then the dose will need to be adjusted. Also you multivitamin may contain vitamin D. Vitamin D is a fat soluble vitamin that requires it be taken with good fat to be absorbed. Examples of healthy fat include nuts, seeds, avocados, olives and for the most part the meal of the day. Spending up to 30 minutes in the sun during Summer and late Spring can provide natural vitamin D to the uncovered skin (arms, legs) - Your calcium can be sufficient in your diet. Healthy food that are rich in calcium include: nuts, seeds, legumes/beans, peas, dark green leafy vegetables, plant based milk Additional calcium rich foods listed below - Soaking Almonds overnight in the fridge with drinking water, can help with softening the almonds and improved absorption of the almonds. Please be careful not to break a tooth with dry raw almonds, or other hard nuts or seeds. If your lab work shows insufficient calcium or you are unable to consume sufficient foods rich in calcium, then a calcium supplement is recommended, such as calcium citrate. - You can track your nutrition and calcium intake on www.[employer] This provides macro and micronutrient intake and requirements. - You can track your calcium intake on [employer] or any other calcium tracker of your choice. If you are not getting about 1200 mg of calcium daily, you will need to add a calcium supplement, such as calcium citrate to supplement you daily calcium so you can achieve your total 1200 mg daily See additional information below on calcium. Please continue following with your dentist every 6 months If you are on Osteoporosis medication, please inform your dentist as invasive dental work with these medications can increase one's risk for ONJ (osteonecrosis of the jaw). Please continue with good oral hygiene and dental care - Please do your best follow, as close as you can, a Whole Food Plant Based diet lifestyle. It is important to avoid unhealthy foods and increase healthy and disease fighting foods. -Review the information provided below. -Start by avoiding all dairy. You can use non-dairy plant based alternatives -Decrease the amount of meat and animal product you consume. For your Ulcerative Colitis it is best to avoid all animal protein. If you need to consume a burger, you can chose a plant based burger. -Avoid fried food and cooking with oil, butter, ghee or fat, as much as possible. You can stir marshall your vegetables with vegetable broth or water. You can use an air fryer for crisping vegetables. Consider broiling, roasting your vegetables or steaming them. -Avoid consuming a lot of over processed foods and ones that contain artifical additives. -Learn 5 recipes that are plant based that you can cook comfortably and that you really like. Then cook at least one of these recipes every week. If you are unable to cook and prefer to have food prepared or delivered to you, you can order healthy plant based food at multiple sites available now for a cost, such as at www.[employer]. -When eating a whole food plant based diet, remember to eat well and sufficiently, as plant foods are naturally lower in calories. Make your plate contain starchy food, whole grains, non-starchy vegetables (such as green) and legumes/beans/tofu/tempeh. You can use tofu, soy curls, tempeh, mushrooms, lentils, beans, walnuts as meat substitutes in cooking. You can consume raw unsalted nuts and seeds as snacks or in your salads. Consume fruits during the day. The vegetables can purchased be fresh or frozen. -Remember to hydrate well with water. - I recommend following a healthy lifestyle. You can find additional information below. I recommend this to all my patients, as I have seen convincing scientific evidence, and seen the results in my practice, of the benefits of this healthy lifestyle to overall health and wellness. I hope you will find this beneficial as well. A whole plant based diet and healthy lifestyle have been reported to be optimal for health in general, anti-inflammatory diet, prevention of common chronic diseases, healthy weight management, memory and brain healthy, bone health. - You can track your nutrition and calcium intake on [email or web address].[email or web address] Advisor [email or web address] This provides macro and micronutrient intake and requirements. Recommendations for healthy lifestyle include: Healthy nutritious diet, anti-inflammatory diet, appropriate exercise, good sleep hygiene, stress management, supplementing vital deficiencies and maintaining healthy weight. with BMI that does not exceed 25 to 26 . 5 points to remember to improve your health and continue on a healthy path: 1- Optimal nutritious food, such as a Whole Plant Based diet You can watch the documentary movie that features the Whole Plant Based diet, [place] over knives (see video online and visit website). Another movie that was recently released is: Eating You Alive (you can find it at SlideRocket) and The Game Changers movie Dr. Fauzia Ansari is a [facility] physician who is an expert in Whole Plant based diet. His website is [employer]. His research highlights the benefits of the Whole food plant based diet in reversing and preventing heart disease. Mrs. Ansari (his ) has a cookbook with many recipes on whole plant based food: The Prevent and Reverse Heart Disease cookbook. You can also consider reading his son, Eze Ansari's book: The Engine 2 cookbook Eze is a retired tree shear operator who has helped many people get healthier by following the whole food plant based diet. Dr. Rock Velazco, has a website and free claudia to help get started on a whole plant based diet, at www.gestigon.org and you can log on for free for his 21-Day Kickstart with meals and recipes to follow for 21 days. There is also a free claudia for that. He has multiple free videos and YouTube, for example: [email or web address] , [email or web address] He has written multiple books, including Power Here On Biz for the Brain, The Cheese Trap, Dr. Rock Velazco's Program for Reversing Diabetes, Your Body in Balance Dr. Anthony Carlson has shown the benefit of a starch based whole food plant based diet to his Rheumatoid Arthritis patients, as well as patient with diabetes II, hypertension, obesity, multiple sclerosis, heart disease, acne, and other, his website: [email or web address] Dr. Yayo Allred is a renowned non destructive testing scientist, who has studied and researched the benefits of the Whole plant based diet. He has also researched the adverse effects of animal proteins on health. He presents many of his research findings in his book The [place] study. Dr. Gerber Becker has completed many research trials proving the reversal of diseases, such as heart disease and early prostate cancer, with healthy lifestyle and the Whole Plant based diet. Dr. Gerber Becker website is: [email or web address] His new book: Undo It, has evidence based information and guide to following this healthy lifestyle. Dr. Cody Dillon has dedicated a website and additional time to reviewing all food related articles and research and presents them in his power point presentation and on his website at: nutritionfacts.org which is all free. Dr. Dillon has multiple free videos and YouTube, for example [email or web address]/[email or web address] and [email or web address]. He has written multiple books including: How Not To and How Not To Diet He is now working on his next book: How Not To Age Dr. Danitza Dash (from the [facility]), has articles on the following website: EchoSign Also, you could find additional information on practical to follow recipes by reading or watching online and YouTube such as: Fur Blower AJ, Cooking With Plants, The Vegan Corner (recipes from an Chinese Fur Blower), The Whole Foods Plant Based Cooking Show and visiting the provided websites for additional information on the whole plant based benefit and cooking recipes. You can also consider watching the vlogs of some of the plant based Athletes such as Fausto Ewing Derek on PlumTV. Dr. Maryan Holguin (a psychiatrist who suffered with lupus) has helped reverse her Systemic Lupus Erythematosus and helps many patients with their auto-immune diseases, based on her recommendations of the whole food plant based diet and the green smoothies. She has a facebook and website, and on youtube her channel is: Goodbye Lupus Some people have adverse effect or intolerance to gluten. Certain patients with auto-immune disease, including auto-immune thyroid disease, need to avoid gluten. If you suspect you are gluten sensitive or intolerant, consider gluten free diet. Gluten could lead to increased inflammation in the bowels and body in certain patients. Not all your food has to be organ if you cannot afford or find them. Consider organic and non-GMO products when shopping for your food, when possible. GMO are genetically modified food that may have adverse impact on our health. If you are unable to purchase organic of non-GMO, you can wash your produce with white vinegar or soak in baking soda and water (see details from Dr. Yañez's website nutritionfacts.org) and rinse well with water. 2- Regular Exercise, such as beginner yoga, tommie chi, stretching, cardio, gradual strengthening, pool therapy, physical therapy Come As You Are: YOGA - Gentle Yoga Anyone Can Do Anywhere [email or web address] Also on youtube: yoga with Karlie 3- Good Sleep (poor sleep impacts everything, recommended sleep is 7.5 to 8 hrs. a night). Certain people need less or more sleep. Meditation and relaxation techniques have shown to help with improving sleep. 4- Stress management, staying positive, be happy, laugh often (it is a great medicine) Find time to relax and meditate if possible. Following steps 1-3 will help with this as well. In psychiatric disorders, it is important to follow with a professional on the optimal management of depression, anxiety or psychiatric illness 5- Supplements Supplementing necessary vitamins and minerals, correcting any deficiencies, i.e. Vitamin D, B12, omega-3 fatty acids etc... Go natural when possible -Important notice: If you are following a Whole plant based diet, it is recommended to take Vitamin B12, sublingual, dissolve under the tongue, take once daily. Vitamin B12 is available over the counter, dose could be 2500 mcg, and can be taken once a week, and if your blood levels are low, you may need to take it once daily or a higher dose. Raw: Garlic, Cilantro, Pilot nuts, Pumpkin seeds, [place] seeds and Flax seed powder have been reported to help with certain metal detoxification such as mercury. [place]-3 plant based rich foods are good anti-inflammatory sources such as : david seeds, flax seed (needs to be ground), walnuts, hemp seeds, dark green leafy vegetables. It is important to avoid refined oils as much as possible especially that many have too much omega-6 that is pro-inflammatory (lead to inflammation as well as concern for heart and vascular disease). Turmeric can be found natural, used as the spice powder or the root with your food. This is also available as a capsule. If you are on a blood thinner, you will need to discuss with your pharmacist or physician before taking Turmeric If you have gall bladder disease or gall bladder stones, it is recommended to avoid turmeric capsules. Sweet cherries (raw cleaned or frozen), Turmeric , pineapple (contains bromelain), omega-rich foods, have anti-inflammatory benefit Start reviewing the Whole Plant Based Diet, by watching [place] over [employer] movie and then review website. There are many other resources and educational information on the Whole plant based diet on the Internet and documentaries. There are other resources for wellness that you can also benefit from, such as the [facility] website, [email or web address] and includes Plant based and Mediterranean diet, yoga and meditation. Please avoid all dairy products. You could use non-dairy milk such as Flax milk, Cashew milk, [place] milk, Rice milk, Oat milk or Hemp milk, instead. It is very important to avoid all: refined sugars (including high fructose syrup), refined carbohydrates, any artificial sweeteners and artificial preservatives, and soda and heavily processed food. Insure adequate hydration; drink at least 6 to 8 cups of water daily, certain people need less or more. Examples of Smoothies: Every morning you can start your day with a healthy natural anti-inflammatory smoothie, for example, you can blend: fresh or frozen sweet cherries, half a root of turmeric (1 to 2 inches), banana, blue berries, walnuts, few leaves of kale, add flax milk (or almond milk), and enjoy. You could add half an avocado if you like it smoother. If you do not tolerate walnuts, you can use flax seeds, david seeds or hemp seeds instead. If you do not like plant based milk, you can use coconut water or plain water instead. Other smoothies, including green smoothies, are also very healthy and highly anti-inflammatory. For example fruits (such as banana or frozen raul or pineapple) and add significant amount of leafy greens, then add water or coconut water and blend until smooth. You can also add turmeric in this recipe. GENERAL INFORMATION ON BONE HEALTH : -Bone Density testing (DXA scan) as recommended. -Vitamin D supplementation is recommended, unless blood levels are sufficient. Recommended daily dose of 1000 to 2000 IU total a day, or the dose necessary to achieve a Vitamin D 25-OH blood level of >31 and preferably closer to 40-60 ng/mL. Vitamin D pills are available over the counter. -Recommended daily dose of calcium: 1200mg total a day in divided doses. Calcium is usually sufficient in our regular diet, also available in multivitamins. Patients on certain dietary restrictions or those unable to meet their daily calcium by diety alone, may require calcium supplements. For patient with history of calcium kidney stones, Calcium Citrate would be the recommended supplement. It is recommended to avoid caclium carbonate supplement in this case, as these may increase risk of calcium kidney stones. The after visit summary has information on dietary calcium and instructions on reading calcium label and converting the %DV to mg. When you read a food label and you see calcium reported as DV %, add a zero and this will provide you with the approximate mg value of the calcium content in this food. For example, if a glass of almond milk is labeled as 40% calcium DV, then this contains 400 mg of calcium. For additional information, please see references provided. -Regular weight-bearing and muscle-strengthening exercise -Avoidance of tobacco smoking, excessive alcohol intake and excessive caffeine intake. -Fall and fracture precautions -It is recommend to continue regular follow up visits with your dentist every 6 months, and continue with good oral hygiene. Calcium: If your diet is sufficient in Calcium rich food, you will not need calcium supplement. Calcium Citrate is the preferred calcium if you have had kidney stones. Daily recommended calcium dose: 600mg twice a day with meals. Adequate calcium ingestion is essential for maintaining healthy bones. The recommended dose daily intake of calcium varies depending on individual needs but is usually between 1200 and 1500mg daily, preferably around 1200mg a day in divided dose (not all taken at once). This is equivalent to about five 8oz glasses of milk per day. Many foods are rich in calcium and they include: - Plant based, non-dairy, calcium rich products, include nuts, almond milk, beans, lentils - Vegetables and Fruit: bok-marin, turnips, broccoli, kale, collards, - Dairy products: milk, cheese, yogurt, ice-cream - Fish products: canned salmon, sardines and shrimp - Cereals and nuts: almonds, sesame seeds, fortified cereals and oatmeal - Other foods: fortified orange-juice, figs, soybeans, other beans and eggs. If you have a low calcium diet and cannot tolerate calcium-rich foods, many supplements are available today. Your pharmacist can help you choose the one which best suits your needs. A few tips on supplements: - They should be easy to swallow - They should dissolve easily in cup of vinegar in < 15 minutes. - Count the ELEMENTAL calcium mgs. E.g. Calcium 499mg may have only 221mg of elemental Calcium. - Calcium citrate is the calcium supplement to take if you have had kidney stones and unable to meet your calcium requirements from food/diet alone. - There is such a variety today that it is best to bring in the bottle to your doctor to show them exactly what you are taking. Lastly too much calcium can be bad for you. Recent studies show extra supplements may increase your risk of kidney stones or cause high calcium levels in some people. You should discuss how much you should be taking with your doctor before starting them. Further Information is available from the following resources: www.nof.org (National Osteoporosis Foundation) http://www.osteo.org/osteolinks.asp [place] [facility]: 6-825-399-BONE The Calcium Information [place]: -Non-Dairy, Plant based Milk, can contain in1 glass up to 450 mg of calcium (300 to 450 mg) Exampled include Oat Milk, Flax Milk, [place] Milk, Cashew Milk, Soy Milk, Peas Milk general health and well being Examples of Food Sources of Calcium from [facility] Food Milligrams (mg) per serving Percent DV* Soymilk, calcium-fortified, 8 ounces 299 30 [place] juice, calcium-fortified, 6 ounces 261 26 Tofu, firm, made with calcium sulfate, cup* 253 25 Tofu, soft, made with calcium sulfate, cup* 138 14 Ftand-vz-mey cereal, calcium-fortified, 1 cup 100-1,000 10-100 Turnip greens, fresh, boiled, cup 99 10 Kale, raw, chopped, 1 cup 100 10 Kale, fresh, cooked, 1 cup 94 9 Egyptian cabbage, bok marin, raw, shredded, 1 cup 74 7 Bread, white, 1 slice 73 7 Tortilla, corn, qoduj-pk-qycx/marshall, one 6 diameter 46 5 Tortilla, flour, dvkno-go-xots/marshall, one 6 diameter 32 3 Bread, whole-wheat, 1 slice 30 3 Broccoli, raw, cup 21 2 * DV = Daily Value. DVs were developed by the U.S. Food and Drug Administration to help consumers compare the nutrient contents among products within the context of a total daily diet. The U.S. Department of Agriculture s (USDA s) Nutrient Database Web site lists the nutrient content of many foods and provides comprehensive list of foods containing calcium arranged by nutrient content and by food name. *Calcium content varies slightly by fat content; the more fat, the less calcium the food contains. * Calcium content is for tofu processed with a calcium salt. Tofu processed with other salts does not provide significant amounts of calcium. You could acces this information online at: http://ods.od.nih.gov/factsheets/Calci -[facility] health/ Vitamin D: Vitamin D3= cholecalciferol, available over the counter. Dose recommended 800 to 1000 iu daily with a meal; Certain patients require 9649-5648 iu daily and in patients deficient in Vitamin D, they require higher dosages. Certain patient requires higher dose, depending on their Vit D blood levels. Vitamin D is essential for calcium metabolism. It is really a hormone produced mainly in your skin after exposure to sunlight. Vitamin D helps you absorb calcium from your stomach and kidneys and incorporates it into your bones. Studies show approximately 50% of [place] men and women are vitamin D deficient in the winter. Milder cases of vitamin D are usually asymptomatic so the only way to know you have a problem is to have a blood level checked. More severe cases can cause osteomalacia (a.k.a. rickets) which can result in bone pain, weak bones and several abnormal laboratory tests and also weak muscles (a.k.a. myopathy). When this happens, your bones lose a lot of their calcium stores as the body tries to regulate the calcium required by other tissues. Prolonged deficiency can lead to severe bone disorders and fractures. Unlike calcium, dietary sources of vitamin D are rare, limited to a few fish oils particularly cod-liver oil, other fortified foods and egg yolks. and most are unhealthy. Natural source of vitamin D is through sunshine. This is usually during jose seasons, for example a 30 minute exposure to sunshine. Some people are unable to be exposed to the sun due to skin condition. Often supplementation is needed. Many multivitamins contain some vitamin D and vitamin D alone preparations are now available in several forms. The recommended daily intake of vitamin D used to be 400 and 800 international units, however, it is now known that larger amounts are needed, as discussed above. Your doctor can prescribe prescription strength vitamin D for you if necessary, if you have marked deficiency or diseases of the liver or kidney. Supplementation in patients with severe deficiency can stabilize or improve bone mineral density and in frail elderly persons, may reduce their risk of falling. Additional Information is available from: www.nof.org (the national osteoporosis foundation) http://www.clest. [facility].org/leesa storm/osteo/info.htm http://ods.od.nih.gov/factsheets/vitam ind.asp National Institutes of Health: 3-630-285-BONE [facility] Information [place]: Review of Osteoporosis medications Medications that prevent bone loss and Osteoporosis fractures: -IV Reclast, is 5 mg intravenous infusion given once a year for Osteoporosis and once every two years for Osteopenia. This is a 15 to 20 minute infusion given at our infusion center. For that infusion, it would be important to have completed any necessary dental work and continue following with your dentist every 6 months and the recommended lab work we ordered. You would need to be well hydrated to insure good kidney function. Please insure adequate hydration with water, about 6 to 8 cups of water, the day before, the day of the infusion and the day after. Please avoid dehydration in general. Some people experience flu like symptoms and low grade fever, after the infusion. This is usually self limited and will resolve. The recommended treatment for symptom relief is taking acetaminophen/Tylenol two extra strength tablets (500mg each) every 6 hours until this has resolved, usually does not last more than 3 days. IV Reclast once a year is usually limited to no more than 3 yrs, to prevent increased risk for atypical fracture of femur. Other less potent Osteoporosis medications, such as evista and miacalcin have not been proven to prevent non-vertebral fractures Reviewed importance of regular dental care, follow up with dentist and good oral hygiene We also reviewed risk of ONJ and atypical fracture of femur Risks, benefits, alternatives, reported side effects, indication, limitations/expectation of medication(s) were discussed with patient. Written information provided for patient review. The nature of osteopenia and osteoporosis and bone thinning, as well as bone loss, was discussed with the patient as well as risk factors for osteoporosis and bone loss, as well as risk factors for fragility fractures from osteoporosis and reported associated risk of morbidity and mortality. I also informed patient that osteoporosis is a silent disease, it is asymptomatic and does not lead to pains. Patients with new bone pains require evaluation for fractures. Patients with chronic pains should not be assumed that is from osteoporosis. I also reviewed with patient risk of fragility fracture from osteoporosis and indication and recommendations by the National Osteoporosis Foundation for pharmacologic therapy and standard of care to decrease risk of OP fractures and bone loss. I reviewed indication for therapy with FDA approved osteoporosis medications with the patient and based on current guidelines and recommendations. I reviewed risk of atypical fracture of femur and ONJ with anti-resorptive therapy. With reports and concern regarding atypical and subtroch. 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 We also follow bone markers and monitor for evidence of oversuppression with anti-resorptive agents. I offered additional time to address all patient's questions and answer all OP questions. At [facility], we work as a team for your care, along with Nurse Practitioners, Physician Assistants, Nurses and Medical Assistants. It is a privilege and honor to serve you. Thank you for choosing [facility] for your healthcare. Sincerely, Nidia Weston APRN.MANAGER COLLECTION PAST MEDICAL HISTORY Diagnosis Date Monoclonal gammopathy History reviewed. No pertinent surgical history. Social History Tobacco Use Smoking status: Former Smokeless tobacco: Never Tobacco comments: quit in 2011 Vaping Use Vaping Use: Never used Substance Use Topics Alcohol use: Never Drug use: Never History reviewed. No pertinent family history. ALLERGIES No Known Allergies Current Outpatient Medications Medication Sig sulfaSALAzine EC (AZULFIDINE EN) 500 mg EC tablet TAKE 2 TABLETS BY MOUTH 4 TIMES A DAY turmeric root extract 500 mg cap Take 500 mg by mouth once daily. Take one(1) tablet three times daily. folic acid 1 mg tablet Take 1 mg by mouth once daily. Cholecalciferol, Vitamin D3, 5,000 unit cap Take 5,000 Units by mouth once daily. patient taking once daily with food ezetimibe (ZETIA) 10 mg tablet Take 10 mg by mouth once daily. atorvastatin (LIPITOR) 20 mg tablet Take 20 mg by mouth once daily. lisinopril (ZESTRIL, PRINIVIL) 20 mg tablet Take 20 mg by mouth once daily. Omeprazole 40 mg capsule Take 40 mg by mouth once daily. CHEWABLE MULTI VITAMIN ORAL Take by mouth. No current facility-administered medications for this visit. Facility-Administered Medications Ordered in Other Visits Medication Dose Route Frequency acetaminophen 1,000 mg tab(s) (TYLENOL) 1,000 mg ORAL ONCE NaCl 0.9% iv infusion 500-999 mL/hr INTRAVENOUS PRN diphenhydrAMINE 50 mg injection (BENADRYL) 50 mg INTRAVENOUS PRN hydrocortisone sodium succinate (PF) 100 mg injection (Solu-CORTEF) 100 mg INTRAVENOUS PRN EPINEPHrine HCl (PF) 1 mg/mL (1 mL) 0.3 mg injection 0.3 mg INTRAMUSCULAR PRN sodium chloride 0.9 % (flush) 10-20 mL (BD POSIFLUSH) 10-20 mL INTRAVENOUS PRN sodium chloride 0.9 % (flush) 10-20 mL (BD POSIFLUSH) 10-20 mL INTRAVENOUS DIRECTED PRN RELEVANT PREVIOUS INVESTIGATIONS: Calcium Date Value Ref Range Status 08/22/2020 9.4 8.5 - 10.2 mg/dL Final 01/17/2020 9.3 8.5 - 10.2 mg/dL Final 02/10/2019 9.5 8.5 - 10.2 mg/dL Final Calcium, Total Date Value Ref Range Status 12/01/2023 10.2 8.5 - 10.2 mg/dL Final Phosphorus Date Value Ref Range Status 08/22/2020 2.8 2.7 - 4.8 mg/dL Final 01/17/2020 2.5 (L) 2.7 - 4.8 mg/dL Final 07/12/2019 2.5 (L) 2.7 - 4.8 mg/dL Final 02/10/2019 2.2 (L) 2.7 - 4.8 mg/dL Final Alkaline Phosphatase Date Value Ref Range Status 01/12/2024 211 (H) 38 - 113 U/L Final 12/01/2023 171 (H) 38 - 113 U/L Final 08/22/2020 135 (H) 38 - 113 U/L Final 02/10/2019 152 (H) 38 - 113 U/L Final PTH, Intact Date Value Ref Range Status 01/17/2020 42 15 - 65 pg/mL Final 02/10/2019 57 15 - 65 pg/mL Final 08/19/2018 43 15 - 65 pg/mL Final 08/29/2015 55 15 - 65 pg/mL Final NTX, Serum Date Value Ref Range Status 08/19/2018 16.9 5.4 - 24.2 nM BCE Final TSH Date Value Ref Range Status 08/19/2018 1.930 0.400 - 5.500 uU/mL Final Testosterone Free Date Value Ref Range Status 08/19/2018 83.1 41.7 - 180.2 pg/mL Final Comment: This test was developed and its performance characteristics [facility] [place] ([facility]). It has not been cleared or approved by the FDA. [facility] is regulated under CLIA as qualified to perform high-complexity testing. This test is used for clinical purposes. It should not be regarded as investigational or for research. Testosterone Date Value Ref Range Status 08/19/2018 387 193 - 824 ng/dL Final Comment: A testosterone level in the 193-320 ng/dL range with associated clinical symptoms is considered low and may indicate hypogonadism (from [facility] 2010 [id number]). Results >320 ng/dL are considered normal. Vitamin D 25 Hydroxy Date Value Ref Range Status 12/01/2023 63.0 31.0 - 80.0 ng/mL Final Comment: Classification of 25 [place] Vitamin D status: Deficiency/Insufficiency: < or = 30 ng/ml. Sufficiency/Optimal Levels: 31-80 ng/mL Toxicity: > 100 ng/mL. Test performed by chemiluminescent immunoassay. 01/29/2022 43.5 31.0 - 80.0 ng/mL Final Comment: Classification of 25 [place] Vitamin D status: Deficiency/Insufficiency: < or = 30 ng/ml. Sufficiency/Optimal Levels: 31-80 ng/mL Toxicity: > 100 ng/mL. Test performed by chemiluminescent immunoassay. 02/20/2021 44.2 31.0 - 80.0 ng/mL Final Comment: Classification of 25 [place] Vitamin D status: Insufficiency/Moderate Deficiency: < or = 30 ng/mL Sufficiency/Optimal Levels: 31 to 80 ng/mL Toxicity: > 100 ng/mL Test performed by chemiluminescent immunoassay. 08/22/2020 48.4 31.0 - 80.0 ng/mL Final Comment: Classification of 25 [place] Vitamin D status: Insufficiency/Moderate Deficiency: < or = 30 ng/mL Sufficiency/Optimal Levels: 31 to 80 ng/mL Toxicity: > 100 ng/mL Test performed by chemiluminescent immunoassay. Creatinine Date Value Ref Range Status 12/01/2023 0.92 0.73 - 1.22 mg/dL Final 08/22/2020 0.79 0.73 - 1.22 mg/dL Final 01/17/2020 0.83 0.73 - 1.22 mg/dL Final 02/10/2019 0.86 0.73 - 1.22 mg/dL Final Creat Clearance Date Value Ref Range Status 01/26/2020 85 - 125 mL/min Final Unable to calculate creatinine clearance. No serum creatinine available. Protein, Total Date Value Ref Range Status 12/01/2023 8.0 6.3 - 8.0 g/dL Final 01/29/2022 7.2 6.3 - 8.0 g/dL Final 08/22/2020 7.1 6.3 - 8.0 g/dL Final 08/22/2020 6.4 6.3 - 8.0 g/dL Final Albumin Date Value Ref Range Status 12/01/2023 3.9 3.9 - 4.9 g/dL Final 08/22/2020 4.4 3.9 - 4.9 g/dL Final 01/17/2020 4.0 3.9 - 4.9 g/dL Final 02/10/2019 4.5 3.9 - 4.9 g/dL Final Alpha 1 Globulin Date Value Ref Range Status 01/29/2022 0.22 0.18 - 0.31 g/dL Final 08/22/2020 0.22 0.18 - 0.31 gm/dL Final 01/26/2020 0.27 0.18 - 0.31 gm/dL Final Alpha 2 Globulin Date Value Ref Range Status 01/29/2022 0.46 (L) 0.52 - 0.97 g/dL Final 08/22/2020 0.44 (L) 0.52 - 0.97 gm/dL Final 01/26/2020 0.57 0.52 - 0.97 gm/dL Final Beta Globulin Date Value Ref Range Status 01/29/2022 0.87 0.84 - 1.36 g/dL Final 08/22/2020 0.92 0.84 - 1.36 gm/dL Final 01/26/2020 0.98 0.84 - 1.36 gm/dL Final Gamma Globulin Date Value Ref Range Status 01/29/2022 1.45 (H) 0.70 - 1.44 g/dL Final 08/22/2020 1.04 0.70 - 1.44 gm/dL Final 01/26/2020 1.22 0.70 - 1.44 gm/dL Final Interpretation (Prot Electro) Date Value Ref Range Status 01/29/2022 No definitive M protein is identified on protein electrophoresis. Final No definitive M protein is identified on protein electrophoresis. 08/22/2020 SEE COMMENT Final Comment: No definitive M protein is identified on protein electrophoresis. 01/26/2020 SEE COMMENT Final Comment: No definitive M protein is identified on protein electrophoresis. MPA IgA, Serum Date Value Ref Range Status 08/22/2020 213 70 - 400 mg/dL Final 08/19/2018 188 78 - 391 mg/dL Final MPA IgG, Serum Date Value Ref Range Status 08/22/2020 1,098 700 - 1,600 mg/dL Final 08/19/2018 1,270 717 - 1,411 mg/dL Final MPA IgM, Serum Date Value Ref Range Status 08/22/2020 167 40 - 230 mg/dL Final 08/19/2018 147 53 - 334 mg/dL Final MPA [place], Serum Date Value Ref Range Status 08/19/2018 1,020 534 - 1,267 mg/dL Final MPA Lambda, Serum Date Value Ref Range Status 08/19/2018 551 253 - 653 mg/dL Final MPA [place]/Lambda Ratio Date Value Ref Range Status 08/19/2018 1.85 1 - 3 Final IgA Date Value Ref Range Status 01/29/2022 221 70 - 400 mg/dL Final 01/26/2020 202 78 - 391 mg/dL Final 08/19/2018 198 78 - 391 mg/dL Final 08/29/2015 207 78 - 391 mg/dL Final Vitamin D 25 Hydroxy (ng/mL) Date Value 12/01/2023 63.0 02/20/2021 44.2 ] Calcium, Total Date Value Ref Range Status 12/01/2023 10.2 8.5 - 10.2 mg/dL Final Creatinine Date Value Ref Range Status 12/01/2023 0.92 0.73 - 1.22 mg/dL Final 08/22/2020 0.79 0.73 - 1.22 mg/dL Final 01/17/2020 0.83 0.73 - 1.22 mg/dL Final 02/10/2019 0.86 0.73 - 1.22 mg/dL Final Calcium, Total Date Value Ref Range Status 12/01/2023 10.2 8.5 - 10.2 mg/dL Final TSH Date Value Ref Range Status 08/19/2018 1.930 0.400 - 5.500 uU/mL Final Last Bone Density DXA-AXIAL SKELETON Exam End: 09/23/2022 10:03 AM (Final result) Narrative: * * *Final Report* * * DATE OF EXAM: Sep 23 2022 10:03AM LNB 0804 - BD DXA - AXIAL SKELETON / PROCEDURE REASON: multiple diagnoses * * * * Physician Interpretation * * * * EXAMINATION: DXA BONE DENSITOMETRY BD DXA - AXIAL SKELETON PATIENT DEMOGRAPHICS: Age: 57 years, Race: , Gender: Male SCANNER INFORMATION: DXA Model: [employer] W [id number] SITE SCANNED: Lumbar spine and left hip Date Scanned: 09/23/2022 10:03 AM Date of prior scan(s): 08/22/2020, 08/19/2018 CLINICAL HISTORY: DIAGNOSTIC Other osteoporosis without current pathological fracture High risk for hip fracture Bone loss Vitamin D deficiency. RISK FACTORS FOR OSTEOPOROSIS AND ASSOCIATED FRACTURES REPORTED BY THIS PATIENT: Parent with a history of HIP fracture Height loss of 1.5 inches or more Prior smoking history Ulcerative Colitis Vitamin D deficiency History of kidney stones No exercise Rheumatoid arthritis CURRENT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 modified food that may have adverse impact on our health. If you are unable to purchase organic of non-GMO, you can wash your produce with white vinegar or soak in baking soda and water (see details from Dr. Yañez's website nutritionfacts.org) and rinse well with water. 2- Regular Exercise, such as beginner yoga, tommie chi, stretching, cardio, gradual strengthening, pool therapy, physical therapy Come As You Are: YOGA - Gentle Yoga Anyone Can Do Anywhere [email or web address] ([email or web address]).[email or web address] Also on youtube: yoga with Karlie 3- Good Sleep (poor sleep impacts everything, recommended sleep is 7.5 to 8 hrs. a night). Certain people need less or more sleep. Meditation and relaxation techniques have shown to help with improving sleep. 4- Stress management, staying positive, be happy, laugh often (it is a great medicine) Find time to relax and meditate if possible. Following steps 1-3 will help with this as well. In psychiatric disorders, it is important to follow with a professional on the optimal management of depression, anxiety or psychiatric illness 5- Supplements Supplementing necessary vitamins and minerals, correcting any deficiencies, i.e. Vitamin D, B12, omega-3 fatty acids etc... Go natural when possible -Important notice: If you are following a Whole plant based diet, it is recommended to take Vitamin B12, sublingual, dissolve under the tongue, take once daily. Vitamin B12 is available over the counter, dose could be 2500 mcg, and can be taken once a week, and if your blood levels are low, you may need to take it once daily or a higher dose. Raw: Garlic, Cilantro, Pilot nuts, Pumpkin seeds, [place] seeds and Flax seed powder have been reported to help with certain metal detoxification such as mercury. [place]-3 plant based rich foods are good anti-inflammatory sources such as : david seeds, flax seed (needs to be ground), walnuts, hemp seeds, dark green leafy vegetables. It is important to avoid refined oils as much as possible especially that many have too much omega-6 that is pro-inflammatory (lead to inflammation as well as concern for heart and vascular disease). Turmeric can be found natural, used as the spice powder or the root with your food. This is also available as a capsule. If you are on a blood thinner, you will need to discuss with your pharmacist or physician before taking Turmeric If you have gall bladder disease or gall bladder stones, it is recommended to avoid turmeric capsules. Sweet cherries (raw cleaned or frozen), Turmeric , pineapple (contains bromelain), omega-rich foods, have anti-inflammatory benefit Start reviewing the Whole Plant Based Diet, by watching [place] over [employer] movie and then review website. There are many other resources and educational information on the Whole plant based diet on the Internet and documentaries. There are other resources for wellness that you can also benefit from, such as the [facility] website, [email or web address] and includes Plant based and Mediterranean diet, yoga and meditation. Please avoid all dairy products. You could use non-dairy milk such as Flax milk, Cashew milk, [place] milk, Rice milk, Oat milk or Hemp milk, instead. It is very important to avoid all: refined sugars (including high fructose syrup), refined carbohydrates, any artificial sweeteners and artificial preservatives, and soda and heavily processed food. Insure adequate hydration; drink at least 6 to 8 cups of water daily, certain people need less or more. Examples of Smoothies: Every morning you can start your day with a healthy natural anti-inflammatory smoothie, for example, you can blend: fresh or frozen sweet cherries, half a root of turmeric (1 to 2 inches), banana, blue berries, walnuts, few leaves of kale, add flax milk (or almond milk), and enjoy. You could add half an avocado if you like it smoother. If you do not tolerate walnuts, you can use flax seeds, david seeds or hemp seeds instead. If you do not like plant based milk, you can use coconut water or plain water instead. Other smoothies, including green smoothies, are also very healthy and highly anti-inflammatory. For example fruits (such as banana or frozen raul or pineapple) and add significant amount of leafy greens, then add water or coconut water and blend until smooth. You can also add turmeric in this recipe. GENERAL INFORMATION ON BONE HEALTH : -Bone Density testing (DXA scan) as recommended. -Vitamin D supplementation is recommended, unless blood levels are sufficient. Recommended daily dose of 1000 to 2000 IU total a day, or the dose necessary to achieve a Vitamin D 25-OH blood level of >31 and preferably closer to 40-60 ng/mL. Vitamin D pills are available over the counter. -Recommended daily dose of calcium: 1200mg total a day in divided doses. Calcium is usually sufficient in our regular diet, also available in multivitamins. Patients on certain dietary restrictions or those unable to meet their daily calcium by diety alone, may require calcium supplements. For patient with history of calcium kidney stones, Calcium Citrate would be the recommended supplement. It is recommended to avoid caclium carbonate supplement in this case, as these may increase risk of calcium kidney stones. The after visit summary has information on dietary calcium and instructions on reading calcium label and converting the %DV to mg. When you read a food label and you see calcium reported as DV %, add a zero and this will provide you with the approximate mg value of the calcium content in this food. For example, if a glass of almond milk is labeled as 40% calcium DV, then this contains 400 mg of calcium. For additional information, please see references provided. -Regular weight-bearing and muscle-strengthening exercise -Avoidance of tobacco smoking, excessive alcohol intake and excessive caffeine intake. -Fall and fracture precautions -It is recommend to continue regular follow up visits with your dentist every 6 months, and continue with good oral hygiene. Calcium: If your diet is sufficient in Calcium rich food, you will not need calcium supplement. Calcium Citrate is the preferred calcium if you have had kidney stones. Daily recommended calcium dose: 600mg twice a day with meals. Adequate calcium ingestion is essential for maintaining healthy bones. The recommended dose daily intake of calcium varies depending on individual needs but is usually between 1200 and 1500mg daily, preferably around 1200mg a day in divided dose (not all taken at once). This is equivalent to about five 8oz glasses of milk per day. Many foods are rich in calcium and they include: - Plant based, non-dairy, calcium rich products, include nuts, almond milk, beans, lentils - Vegetables and Fruit: bok-marin, turnips, broccoli, kale, collards, - Dairy products: milk, cheese, yogurt, ice-cream - Fish products: canned salmon, sardines and shrimp - Cereals and nuts: almonds, sesame seeds, fortified cereals and oatmeal - Other foods: fortified orange-juice, figs, soybeans, other beans and eggs. If you have a low calcium diet and cannot tolerate calcium-rich foods, many supplements are available today. Your pharmacist can help you choose the one which best suits your needs. A few tips on supplements: - They should be easy to swallow - They should dissolve easily in cup of vinegar in < 15 minutes. - Count the ELEMENTAL calcium mgs. E.g. Calcium 499mg may have only 221mg of elemental Calcium. - Calcium citrate is the calcium supplement to take if you have had kidney stones and unable to meet your calcium requirements from food/diet alone. - There is such a variety today that it is best to bring in the bottle to your doctor to show them exactly what you are taking. Lastly too much calcium can be bad for you. Recent studies show extra supplements may increase your risk of kidney stones or cause high calcium levels in some people. You should discuss how much you should be taking with your doctor before starting them. Further Information is available from the following resources: www.nof.org (National Osteoporosis Foundation) http://www.osteo.org/osteolinks.asp National Institutes of Health: 4-849-242-BONE [facility] Calcium Information [place]: -Non-Dairy, Plant based Milk, can contain in1 glass up to 450 mg of calcium (300 to 450 mg) Exampled include Oat Milk, Flax Milk, [place] Milk, Cashew Milk, Soy Milk, Peas Milk general health and well being Examples of Food Sources of Calcium from [facility] Food Milligrams (mg) per serving Percent DV* Soymilk, calcium-fortified, 8 ounces 299 30 [place] juice, calcium-fortified, 6 ounces 261 26 Tofu, firm, made with calcium sulfate, cup* 253 25 Tofu, soft, made with calcium sulfate, cup* 138 14 Cqtwc-sz-odp cereal, calcium-fortified, 1 cup 100-1,000 10-100 Turnip greens, fresh, boiled, cup 99 10 Kale, raw, chopped, 1 cup 100 10 Kale, fresh, cooked, 1 cup 94 9 Egyptian cabbage, bok marin, raw, shredded, 1 cup 74 7 Bread, white, 1 slice 73 7 Tortilla, corn, sqqod-bz-ttcd/marshall, one 6 diameter 46 5 Tortilla, flour, xmgmz-hf-hxco/marshall, one 6 diameter 32 3 Bread, whole-wheat, 1 slice 30 3 Broccoli, raw, cup 21 2 * DV = Daily Value. DVs were developed by the U.S. Food and Drug Administration to help consumers compare the nutrient contents among products within the context of a total daily diet. The U.S. Department of Agriculture s (USDA s) Nutrient Database Web site lists the nutrient content of many foods and provides comprehensive list of foods containing calcium arranged by nutrient content and by food name. *Calcium content varies slightly by fat content; the more fat, the less calcium the food contains. * Calcium content is for tofu processed with a calcium salt. Tofu processed with other salts does not provide significant amounts of calcium. You could acces this information online at: http://ods.od.nih.gov/factsheets/Calci um-HealthProfessional/ Vitamin D: Vitamin D3= cholecalciferol, available over the counter. Dose recommended 800 to 1000 iu daily with a meal; Certain patients require 7674-0676 iu daily and in patients deficient in Vitamin D, they require higher dosages. Certain patient requires higher dose, depending on their Vit D blood levels. Vitamin D is essential for calcium metabolism. It is really a hormone produced mainly in your skin after exposure to sunlight. Vitamin D helps you absorb calcium from your stomach and kidneys and incorporates it into your bones. Studies show approximately 50% of [place] men and women are vitamin D deficient in the winter. Milder cases of vitamin D are usually asymptomatic so the only way to know you have a problem is to have a blood level checked. More severe cases can cause osteomalacia (a.k.a. rickets) which can result in bone pain, weak bones and several abnormal laboratory tests and also weak muscles (a.k.a. myopathy). When this happens, your bones lose a lot of their calcium stores as the body tries to regulate the calcium required by other tissues. Prolonged deficiency can lead to severe bone disorders and fractures. Unlike calcium, dietary sources of vitamin D are rare, limited to a few fish oils particularly cod-liver oil, other fortified foods and egg yolks. and most are unhealthy. Natural source of vitamin D is through sunshine. This is usually during jose seasons, for example a 30 minute exposure to sunshine. Some people are unable to be exposed to the sun due to skin condition. Often supplementation is needed. Many multivitamins contain some vitamin D and vitamin D alone preparations are now available in several forms. The recommended daily intake of vitamin D used to be 400 and 800 international units, however, it is now known that larger amounts are needed, as discussed above. Your doctor can prescribe prescription strength vitamin D for you if necessary, if you have marked deficiency or diseases of the liver or kidney. Supplementation in patients with severe deficiency can stabilize or improve bone mineral density and in frail elderly persons, may reduce their risk of falling. Additional Information is available from: www.nof.org (the national osteoporosis foundation) http://www.[facility].org/arthgabriella is/osteo/info.htm http://ods.od.nih.gov/factsheets/vitam ind.asp National Institutes of Health: 1-595-397-BONE The Calcium Information [place]: Review of Osteoporosis medications Medications that prevent bone loss and Osteoporosis fractures: -IV Reclast, is 5 mg intravenous infusion given once a year for Osteoporosis and once every two years for Osteopenia. This is a 15 to 20 minute infusion given at our infusion center. For that infusion, it would be important to have completed any necessary dental work and continue following with your dentist every 6 months and the recommended lab work we ordered. You would need to be well hydrated to insure good kidney function. Please insure adequate hydration with water, about 6 to 8 cups of water, the day before, the day of the infusion and the day after. Please avoid dehydration in general. Some people experience flu like symptoms and low grade fever, after the infusion. This is usually self limited and will resolve. The recommended treatment for symptom relief is taking acetaminophen/Tylenol two extra strength tablets (500mg each) every 6 hours until this has resolved, usually does not last more than 3 days. IV Reclast once a year is usually limited to no more than 3 yrs, to prevent increased risk for atypical fracture of femur. Other less potent Osteoporosis medications, such as evista and miacalcin have not been proven to prevent non-vertebral fractures Reviewed importance of regular dental care, follow up with dentist and good oral hygiene We also reviewed risk of ONJ and atypical fracture of femur Risks, benefits, alternatives, reported side effects, indication, limitations/expectation of medication(s) were discussed with patient. Written information provided for patient review. The nature of osteopenia and osteoporosis and bone thinning, as well as bone loss, was discussed with the patient as well as risk factors for osteoporosis and bone loss, as well as risk factors for fragility fractures from osteoporosis and reported associated risk of morbidity and mortality. I also informed patient that osteoporosis is a silent disease, it is asymptomatic and does not lead to pains. Patients with new bone pains require evaluation for fractures. Patients with chronic pains should not be assumed that is from osteoporosis. I also reviewed with patient risk of fragility fracture from osteoporosis and indication and recommendations by the National Osteoporosis Foundation for pharmacologic therapy and standard of care to decrease risk of OP fractures and bone loss. I reviewed indication for therapy with FDA approved osteoporosis medications with the patient and based on current guidelines and recommendations. I reviewed risk of atypical fracture of femur and ONJ with anti-resorptive therapy. With reports and concern regarding atypical and subtroch. 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 We also follow bone markers and monitor for evidence of oversuppression with anti-resorptive agents. I offered additional time to address all patient's questions and answer all OP questions. At [facility], we work as a team for your care, along with Nurse Practitioners, Physician Assistants, Nurses and Medical Assistants. It is a privilege and honor to serve you. Thank you for choosing [facility] for your healthcare. Sincerely, Nidia Weston APRN.CNP documented in this encounter [facility] 03-14-2024 History of Present illness Narrative Follow up Jam Toscano is a very nice 58 year old male seen for Rheumatoid Arthritis and Osteoporosis Subjective: Dr. Luis Antonio Vicente Had colonoscopy - no inflammation Biospys - no results yet ,polyps High alk phos Ordered fibroscan Needs repeat scope Patient reports: Low iron- following with Dr. Lomeli Has not been taking iron consistently Following urology enlarged prostate Has kidney stones Pain- no No joint swelling Enlarged mcps #3 right Sleeps on flat pillow helps Some itching hands - changed back to amanda dish soap improved No falls No interim fractures No new bone pains No dental or Jaw problems or pains. Denies jaw pains Follows with dentist every 6 months Denies upcoming dental work or invasive procedures No dental concerns [facility] [phone] No serious infections or fevers Stopped celebrex - does not feel he needs Following with ortho for prior knee and hip replacements Exercise- has exercise bike Sometimes not drinking enough water GI - colitis- has been calm since last treatment SSZ 2 tabs 4 times daily entyvio Calcium dietary Vit d 5000 international unit(s) daily Mesalamine nightly Tumeric daily - started by GI- tid 500mg OP therapy: not on op treatment Wants to wait until everything calmed Med well tolerated Bone tests were reviewed at this visit Full labs enclosed Review of Systems CONSTITUTION: Negative for: Weight loss or gain, Fever. Chills, Night sweats HEENT: Negative for: Nosebleeds, Mouth sores, Trouble swallowing, Dry mouth RESPIRATORY: Negative for: Cough, Shortness of breath, Pain with breathing, Coughing up blood GASTROINTESTINAL: Negative for: Melena, Diarrhea, Heartburn and Abdominal pain MUSCULOSKELETAL: Negative for: Arthralgias, Myalgias, Muscle weakness, Joint swelling and Morning Joint Stiffness NEUROLOGICAL: Negative for: Headaches, Numbness, Memory loss, SKIN: Positive for: Hair loss (thinning) Negative for: Rash, Sun Sensitive Rash, Skin changes and Nail changes EYES: Negative for: Eye pain, Eye redness, Visual disturbance, Eye dryness CARDIOVASCULAR: Negative for: Chest pain, Leg swelling, Arrhythmia, Presyncope GENITOURINARY: Negative for: Dysuria, Hematuria and Ulcerations Still has a kidney stone Following with urology- will see someone else if has further issues HEMATOLOGIC/LYMPHATIC: Negative for: Swollen glands - medical history - medications - allergies - family history - social history - radiology - tests Full details in patient's emr chart Additional pertinent test results reviewed Pertinent imaging scans/films reviewed Physical Exam BP 121/83 Pulse 97 Wt 74.9 kg (165 lb 2 oz) SpO2 97% BMI 26.66 kg/m General Appearance: WD/WN, NAD. Appropriate grooming. SKIN: No rash, no psoriasis, no purpura, no ulcers, no skin thickening/tightness, no circular telangiectasias. HEENT: No patchy alopecia, no conjunctival injection or icterus, no oral ulcers, no thrush NECK: neck supple w/o masses, no thyromegaly, no LAD. LUNGS: CTA, Good respiratory effort. HEART: RRR, - m/r/g Abd; soft, NT, I did not palpate HSM EXTREMITIES: Adequate pulses b/l UE ; No clubbing,discoloration,sclerodactyly, periungual erythema, digital ulcers, nail pitting; mild LE pitting edema with hypopigm. of skin, denies tenderness or sensitivity, no skin demarcation. MUSCULOSK: Stable multiple severe joint deformities involving the wrists, fingers, ankles and feet Wrist fusion b/l, also with ankyloses of b/l multiple fingers bony deformities of left ankle and pes planus, with valgus deformity of ankle. multiple swan neck deformities, toe deformities Rheumatoid nodules in b/l olecranon bursae stable Swoll JTS:0 Tend. JTS:0 Enlarged mcps #3 right Left elbow contracted Stiff with rom bilateral shoulders - improved No clinical synovitis in the DIP's, PIP's, MCP's, wrists, elbows, shoulders, knees, ankles, midfoot, or toes. No knee effusions bilateral, s/p TKR b/l Shoulder exam: ROM without pain, limitations with full abd LIMITATION of Motion of Joints: multiple as above Thoracic/Lumbar Spine: No percussion tenderness No instability in any upper or lower extremity joints. NEURO: Mental Status: alert and oriented x 3, cheerful, CN II - XII grossly intact Motor: 5/5 proximally and distally b/l Sensory: intact to fine touch Gait: non-antalgic limp sec to chronic foot deformities w/o assistive devices Tone: normal ASSESSMENT: M05.79 Rheumatoid arthritis 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) (primary encounter diagnosis) E55.9 Vitamin D deficiency M81.8 Other osteoporosis without current pathological fracture Z71.89 Encounter for medication review and counseling Per Dr. Dubon last note -Chronic, severe long standing Rheumatoid Arthritis, deforming, erosive, nodular, prior to following with us Sero-positive s/p multiple joint surgeries Has multiple chronic joint deformities He has had very good response to Enbrel with remission due to med. And since switched to Humira, reports continued response. -At today's visit, the patient's Rheumatoid Arthritis does not appear to be active and has been in remission with anti-TNF therapy. Anti- TNF therapy is indicated and medically necessary for maintenance of remission in patient's severe chronic Rheumatoid Arthritis. His certified meeting professional has switched him to Humira as he feels patient would have better response to his IBD and is prescribing sulfasalazine and mesalamine (endema). -Vitamin D deficiency- corrected He is on supplements, requires monitoring due to risk of recurrent deficiencies. He reports taking 5000 international units daily with a meal, maintenance Will update labs -Osteoporosis DXA August 19, 2018 Lowest T-score -2.5 (left fem neck) No history of frag/ fractures Not currently on steroids, has had in past His OP evaluation, was normal for testost, NTX, celiac, homoc, magn, serum monocl, iPTH, calcium, vitamin D. His phos was low and improved with increased dietary phos. His urine monoclonal revealed M protein and we have referred him to Hematology Oncology -DXA August 22, 2020, lowest T-score -2.7 (left fem neck) Left total neck T-score -2.6 Spine T-score -1.7, stable BMD, but is unreliable due to degen. disease Bone loss at the fem neck by 6.3% I reviewed concerns for bone loss Advised on caution with steroid use and to explain to his other providers that he has Osteoporosis and bone loss, avoiding steroids when possible. I reviewed risk of bone loss and fracture and discussed guidelines and recommendations for therapy. I reviewed Reclast infusion and patient wishes to proceed. Will obtain insurance precert. Due to his gastrointestinal disease, IBD, oral bisphosphonates are contraindicated. With M protein, Forte and Tymlos need to be deferred Prolia is another option. Evenity has not been yet approved in men. I reviewed IV Reclast infusion at multiple visits. I advised him that he needs to have his dental work completed first and reviewed risk of ONJ. He has not been able to completed in 2019 or since and is looking into dental insurance. He will let us know when his dental work is completed. He is aware that dental work needs to be completed before Reclast and was advised to f/u with his dentist and relayed that he plans to. I reviewed importance of f/u with dentist and explained also that this is delaying his Osteoporosis therapy. Patient will contact me after he has completed his dental work. -DXA September 23, 2022, lowest T-score -2.5 (left fem neck) Stable BMD, no bone loss compared to 2019. He remains at risk for fracture and further bone loss, colton with his active IBD and intermittent steroid therapy from his certified meeting professional. Pharmacologic therapy is still indicated and recommended, however, are still awaiting completion of dental work. -I have referred him to Hematology Oncology for urine M protein (checked twice) and has labs ordered by them. Has not had f/u for 2 yrs. Will update labs and if abnormal will refer again. Recheck were normal Rheumatoid arthritis No pain, no joint swelling . RA in remission. no am stiffness. GI UC on entyvio now, SSZ 8 tabs daily. Tumeric. Off humira. Per GI. Following pcp anemia Following with ortho knees and hips- had prior replacements. Osteoporosis Not currently on treatment, vit d 5000 international unit(s) daily . Last vit d normal. Completed dental procedures. Will need dental clearance He wants to wait until everything calms down. No falls, no fractures, no new bone pains, no procedures planned, no s/s of infections and no antibiotics. Reclast if labs normal and dental clearance I reviewed risk for future fragility fractures and bone loss. Reviewed indication and guideline recommendations for pharmacologic therapy Reviewed healthy lifestyle and role of diet and exercise and stress on Osteoporosis and bone loss. I have discussed FDA approved medications Written information provided to patient on OP, Ca/D, BMD, ONJ, Bone health and recommendations, OP medications. Also provided information on web for additional information if necessary, CC, NOF and ISCD and NIH. PLAN: Labs in 1 month Reclast at next visit after dental clearance Please follow up with your dentist as discussed and once you have completed dental work, please contact me so we can discuss Osteoporosis medication. You are on entyvio and sulfasalazine for your Ulcerative Colitis. These are also treating your Rheumatoid Arthritis. 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 Supplements recommended Vitamin B12: 500 to 1000 mcg once daily Vitamin D: 5000 international units once daily with meals multivitamin FU visit: reclast and ov in 1-2 months after labs Portions of this note have been copied from my previous note and have been updated to reflect today's visit note March 14, 2024 all reflect current medical decision making from date of this visit. I spent a total of 32 minutes on the date of the service which included preparing to see the patient, [id number] patient care, completing clinical documentation, obtaining and/or reviewing separately obtained history, performing a medically appropriate examination, counseling and educating the patient/family/caregiver, and ordering medications, tests, or procedures. Nidia Weston APRN.MANAGER [employer]CTION Recommendations to share with Primary care physician: Dear Dr. Lackey: I had the pleasure of seeing your patient, Jam Toscano. I have enclosed a copy of my clinic note with my assessment and recommendations for this patient. -Continuous follow up with Primary care physician for cardiovascular disease prevention, for age appropriate cancer screening and routine health maintenance and wellness, and infection precautions and age appropriate immunization recommended. Thank you for allowing me to participate in the care of your patient. Nidia Weston APRN.[facility] cc Jose L Lackey MD, MD Patient Instructions -PLEASE NOTE THAT WE REVIEW ALL YOUR TEST RESULTS AT YOUR NEXT FOLLOW UP VISIT WITH YOU. IF ANY ABNORMAL LAB REQUIRES SOONER ATTENTION, WE WILL CONTACT YOU. -If you have signed up on Datalot, we will release your test results through Datalot. I wish you the best of health and wellness. Please take care and stay safe and healthy. Consume a healthy diet, stay well hydrated, sleep well, be happy, improve stress (include meditation), exercise regularly. Spend some time in nature, around trees and osborn (forest bathing) and enjoy half an hour daily in the sun when possible (and benefit from its natural near infrared light, also your skin will be able to produce natural vitamin D). These have been shown to help with wellbeing, promoting a healthy immune system and healing. Instructions and Recommendations: Please follow up with your dentist as discussed and once you have completed dental work, please contact me so we can discuss Osteoporosis medication. You are on entyvio and sulfasalazine for your Ulcerative Colitis. These are also treating your Rheumatoid Arthritis. 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 Supplements recommended Vitamin B12: 500 to 1000 mcg once daily Vitamin D: 5000 international units once daily with meals multivitamin - Maintaining good vitamin D blood levels is important for bone health and overall health. Please see additional information on vitamin D below. A vitamin D blood test, called vitamin D 25-hydroxy (OH) is obtained to assess vitamin D level. If the vitamin D is low, you will need to take a vitamin D supplement. If you are already on a vitamin D supplement, then the dose will need to be adjusted. Also you multivitamin may contain vitamin D. Vitamin D is a fat soluble vitamin that requires it be taken with good fat to be absorbed. Examples of healthy fat include nuts, seeds, avocados, olives and for the most part the meal of the day. Spending up to 30 minutes in the sun during Summer and late Spring can provide natural vitamin D to the uncovered skin (arms, legs) - Your calcium can be sufficient in your diet. Healthy food that are rich in calcium include: nuts, seeds, legumes/beans, peas, dark green leafy vegetables, plant based milk Additional calcium rich foods listed below - Soaking Almonds overnight in the fridge with drinking water, can help with softening the almonds and improved absorption of the almonds. Please be careful not to break a tooth with dry raw almonds, or other hard nuts or seeds. If your lab work shows insufficient calcium or you are unable to consume sufficient foods rich in calcium, then a calcium supplement is recommended, such as calcium citrate. - You can track your nutrition and calcium intake on www.[employer].XING This provides macro and micronutrient intake and requirements. - You can track your calcium intake on [employer] or any other calcium tracker of your choice. If you are not getting about 1200 mg of calcium daily, you will need to add a calcium supplement, such as calcium citrate to supplement you daily calcium so you can achieve your total 1200 mg daily See additional information below on calcium. Please continue following with your dentist every 6 months If you are on Osteoporosis medication, please inform your dentist as invasive dental work with these medications can increase one's risk for ONJ (osteonecrosis of the jaw). Please continue with good oral hygiene and dental care - Please do your best follow, as close as you can, a Whole Food Plant Based diet lifestyle. It is important to avoid unhealthy foods and increase healthy and disease fighting foods. -Review the information provided below. -Start by avoiding all dairy. You can use non-dairy plant based alternatives -Decrease the amount of meat and animal product you consume. For your Ulcerative Colitis it is best to avoid all animal protein. If you need to consume a burger, you can chose a plant based burger. -Avoid fried food and cooking with oil, butter, ghee or fat, as much as possible. You can stir marshall your vegetables with vegetable broth or water. You can use an air fryer for crisping vegetables. Consider broiling, roasting your vegetables or steaming them. -Avoid consuming a lot of over processed foods and ones that contain artifical additives. -Learn 5 recipes that are plant based that you can cook comfortably and that you really like. Then cook at least one of these recipes every week. If you are unable to cook and prefer to have food prepared or delivered to you, you can order healthy plant based food at multiple sites available now for a cost, such as at www.[employer]. -When eating a whole food plant based diet, remember to eat well and sufficiently, as plant foods are naturally lower in calories. Make your plate contain starchy food, whole grains, non-starchy vegetables (such as green) and legumes/beans/tofu/tempeh. You can use tofu, soy curls, tempeh, mushrooms, lentils, beans, walnuts as meat substitutes in cooking. You can consume raw unsalted nuts and seeds as snacks or in your salads. Consume fruits during the day. The vegetables can purchased be fresh or frozen. -Remember to hydrate well with water. - I recommend following a healthy lifestyle. You can find additional information below. I recommend this to all my patients, as I have seen convincing scientific evidence, and seen the results in my practice, of the benefits of this healthy lifestyle to overall health and wellness. I hope you will find this beneficial as well. A whole plant based diet and healthy lifestyle have been reported to be optimal for health in general, anti-inflammatory diet, prevention of common chronic diseases, healthy weight management, memory and brain healthy, bone health. - You can track your nutrition and calcium intake on www.cronometer.com This provides macro and micronutrient intake and requirements. Recommendations for healthy lifestyle include: Healthy nutritious diet, anti-inflammatory diet, appropriate exercise, good sleep hygiene, stress management, supplementing vital deficiencies and maintaining healthy weight. with BMI that does not exceed 25 to 26 . 5 points to remember to improve your health and continue on a healthy path: 1- Optimal nutritious food, such as a Whole Plant Based diet You can watch the documentary movie that features the Whole Plant Based diet, [place] over knives (see video online and visit website). Another movie that was recently released is: Eating You Alive (you can find it at SlideRocket) and The Game Changers movie Dr. Fauzia Ansari is a [facility] physician who is an expert in Whole Plant based diet. His website is [employer]. His research highlights the benefits of the Whole food plant based diet in reversing and preventing heart disease. Mrs. Ansari (his ) has a cookbook with many recipes on whole plant based food: The Prevent and Reverse Heart Disease cookbook. You can also consider reading his son, Eze Ansari's book: The Engine 2 cookbook zEe is a retired tree shear operator who has helped many people get healthier by following the whole food plant based diet. Dr. Rock Velazco, has a website and free claudia to help get started on a whole plant based diet, at www.[employer].org and you can log on for free for his 21-Day Kickstart with meals and recipes to follow for 21 days. There is also a free claudia for that. He has multiple free videos and YouTube, for example: https://youtu.be/cizNrvvC6i8 , https://youtu.be/TtAFQvwzi2d He has written multiple books, including 5gig for the Brain, The Cheese Trap, Dr. Rock Velazco's Program for Reversing Diabetes, Your Body in Balance Dr. Anthony Carlson has shown the benefit of a starch based whole food plant based diet to his Rheumatoid Arthritis patients, as well as patient with diabetes II, hypertension, obesity, multiple sclerosis, heart disease, acne, and other, his website: www.debra.XING Dr. Yayo Allred is a renowned non destructive testing scientist, who has studied and researched the benefits of the Whole plant based diet. He has also researched the adverse effects of animal proteins on health. He presents many of his research findings in his book The [place] study. Dr. Gerber Becker has completed many research trials proving the reversal of diseases, such as heart disease and early prostate cancer, with healthy lifestyle and the Whole Plant based diet. Dr. Gerber Becker website is: www.alvaroDeepFlexevelyn.XING His new book: Undo It, has evidence based information and guide to following this healthy lifestyle. Dr. Cody Dillon has dedicated a website and additional time to reviewing all food related articles and research and presents them in his power point presentation and on his website at: nutritionfacts.org which is all free. Dr. Dillon has multiple free videos and YouTube, for example https://youtu.be/aSgNkhgVtks and https://youtu.be/lXXXygDRyBU. He has written multiple books including: How Not To and How Not To Diet He is now working on his next book: How Not To Age Dr. Danitza Dash (from the [facility]), has articles on the following website: [employer].XING Also, you could find additional information on practical to follow recipes by reading or watching online and YouTube such as: Fur Blower AJ, Cooking With Plants, The Vegan Corner (recipes from an Chinese Fur Blower), The Whole Foods Plant Based Cooking Show and visiting the provided websites for additional information on the whole plant based benefit and cooking recipes. You can also consider watching the vlogs of some of the plant based Athletes such as Graeme Kamara, Fausto Marmolejo, Agustin on PlumTV. Dr. Maryan Holguin (a psychiatrist who suffered with lupus) has helped reverse her Systemic Lupus Erythematosus and helps many patients with their auto-immune diseases, based on her recommendations of the whole food plant based diet and the green smoothies. She has a facebook and website, and on youtube her channel is: Goodbye Lupus Some people have adverse effect or intolerance to gluten. Certain patients with auto-immune disease, including auto-immune thyroid disease, need to avoid gluten. If you suspect you are gluten sensitive or intolerant, consider gluten free diet. Gluten could lead to increased inflammation in the bowels and body in certain patients. Not all your food has to be organ if you cannot afford or find them. Consider organic and non-GMO products when shopping for your food, when possible. GMO are genetically modified food that may have adverse impact on our health. If you are unable to purchase organic of non-GMO, you can wash your produce with white vinegar or soak in baking soda and water (see details from Dr. Yañez's website nutritionfacts.org) and rinse well with water. 2- Regular Exercise, such as beginner yoga, tommie chi, stretching, cardio, gradual strengthening, pool therapy, physical therapy Come As You Are: YOGA - Gentle Yoga Anyone Can Do Anywhere www.Wander ([employer]. [employer]ongo[employer]).[email or web address]/yoga Also on youtube: yoga with Karlie 3- Good Sleep (poor sleep impacts everything, recommended sleep is 7.5 to 8 hrs. a night). Certain people need less or more sleep. Meditation and relaxation techniques have shown to help with improving sleep. 4- Stress management, staying positive, be happy, laugh often (it is a great medicine) Find time to relax and meditate if possible. Following steps 1-3 will help with this as well. In psychiatric disorders, it is important to follow with a professional on the optimal management of depression, anxiety or psychiatric illness 5- Supplements Supplementing necessary vitamins and minerals, correcting any deficiencies, i.e. Vitamin D, B12, omega-3 fatty acids etc... Go natural when possible -Important notice: If you are following a Whole plant based diet, it is recommended to take Vitamin B12, sublingual, dissolve under the tongue, take once daily. Vitamin B12 is available over the counter, dose could be 2500 mcg, and can be taken once a week, and if your blood levels are low, you may need to take it once daily or a higher dose. Raw: Garlic, Cilantro, Pilot nuts, Pumpkin seeds, [place] seeds and Flax seed powder have been reported to help with certain metal detoxification such as mercury. [place]-3 plant based rich foods are good anti-inflammatory sources such as : david seeds, flax seed (needs to be ground), walnuts, hemp seeds, dark green leafy vegetables. It is important to avoid refined oils as much as possible especially that many have too much omega-6 that is pro-inflammatory (lead to inflammation as well as concern for heart and vascular disease). Turmeric can be found natural, used as the spice powder or the root with your food. This is also available as a capsule. If you are on a blood thinner, you will need to discuss with your pharmacist or physician before taking Turmeric If you have gall bladder disease or gall bladder stones, it is recommended to avoid turmeric capsules. Sweet cherries (raw cleaned or frozen), Turmeric , pineapple (contains bromelain), omega-rich foods, have anti-inflammatory benefit Start reviewing the Whole Plant Based Diet, by watching [place] over [employer] movie and then review website. There are many other resources and educational information on the Whole plant based diet on the Internet and documentaries. There are other resources for wellness that you can also benefit from, such as the [facility] website, [facility]org and includes Plant based and Mediterranean diet, yoga and meditation. Please avoid all dairy products. You could use non-dairy milk such as Flax milk, Cashew milk, [place] milk, Rice milk, Oat milk or Hemp milk, instead. It is very important to avoid all: refined sugars (including high fructose syrup), refined carbohydrates, any artificial sweeteners and artificial preservatives, and soda and heavily processed food. Insure adequate hydration; drink at least 6 to 8 cups of water daily, certain people need less or more. Examples of Smoothies: Every morning you can start your day with a healthy natural anti-inflammatory smoothie, for example, you can blend: fresh or frozen sweet cherries, half a root of turmeric (1 to 2 inches), banana, blue berries, walnuts, few leaves of kale, add flax milk (or almond milk), and enjoy. You could add half an avocado if you like it smoother. If you do not tolerate walnuts, you can use flax seeds, david seeds or hemp seeds instead. If you do not like plant based milk, you can use coconut water or plain water instead. Other smoothies, including green smoothies, are also very healthy and highly anti-inflammatory. For example fruits (such as banana or frozen raul or pineapple) and add significant amount of leafy greens, then add water or coconut water and blend until smooth. You can also add turmeric in this recipe. GENERAL INFORMATION ON BONE HEALTH : -Bone Density testing (DXA scan) as recommended. -Vitamin D supplementation is recommended, unless blood levels are sufficient. Recommended daily dose of 1000 to 2000 IU total a day, or the dose necessary to achieve a Vitamin D 25-OH blood level of >31 and preferably closer to 40-60 ng/mL. Vitamin D pills are available over the counter. -Recommended daily dose of calcium: 1200mg total a day in divided doses. Calcium is usually sufficient in our regular diet, also available in multivitamins. Patients on certain dietary restrictions or those unable to meet their daily calcium by diety alone, may require calcium supplements. For patient with history of calcium kidney stones, Calcium Citrate would be the recommended supplement. It is recommended to avoid caclium carbonate supplement in this case, as these may increase risk of calcium kidney stones. The after visit summary has information on dietary calcium and instructions on reading calcium label and converting the %DV to mg. When you read a food label and you see calcium reported as DV %, add a zero and this will provide you with the approximate mg value of the calcium content in this food. For example, if a glass of almond milk is labeled as 40% calcium DV, then this contains 400 mg of calcium. For additional information, please see references provided. -Regular weight-bearing and muscle-strengthening exercise -Avoidance of tobacco smoking, excessive alcohol intake and excessive caffeine intake. -Fall and fracture precautions -It is recommend to continue regular follow up visits with your dentist every 6 months, and continue with good oral hygiene. Calcium: If your diet is sufficient in Calcium rich food, you will not need calcium supplement. Calcium Citrate is the preferred calcium if you have had kidney stones. Daily recommended calcium dose: 600mg twice a day with meals. Adequate calcium ingestion is essential for maintaining healthy bones. The recommended dose daily intake of calcium varies depending on individual needs but is usually between 1200 and 1500mg daily, preferably around 1200mg a day in divided dose (not all taken at once). This is equivalent to about five 8oz glasses of milk per day. Many foods are rich in calcium and they include: - Plant based, non-dairy, calcium rich products, include nuts, almond milk, beans, lentils - Vegetables and Fruit: bok-marin, turnips, broccoli, kale, collards, - Dairy products: milk, cheese, yogurt, ice-cream - Fish products: canned salmon, sardines and shrimp - Cereals and nuts: almonds, sesame seeds, fortified cereals and oatmeal - Other foods: fortified orange-juice, figs, soybeans, other beans and eggs. If you have a low calcium diet and cannot tolerate calcium-rich foods, many supplements are available today. Your pharmacist can help you choose the one which best suits your needs. A few tips on supplements: - They should be easy to swallow - They should dissolve easily in cup of vinegar in < 15 minutes. - Count the ELEMENTAL calcium mgs. E.g. Calcium 499mg may have only 221mg of elemental Calcium. - Calcium citrate is the calcium supplement to take if you have had kidney stones and unable to meet your calcium requirements from food/diet alone. - There is such a variety today that it is best to bring in the bottle to your doctor to show them exactly what you are taking. Lastly too much calcium can be bad for you. Recent studies show extra supplements may increase your risk of kidney stones or cause high calcium levels in some people. You should discuss how much you should be taking with your doctor before starting them. Further Information is available from the following resources: www.nof.org (National Osteoporosis Foundation) http://www.osteo.org/osteolinks.asp [facility]: 1-889-119-BONE [facility] Calcium Information [place]: -Non-Dairy, Plant based Milk, can contain in1 glass up to 450 mg of calcium (300 to 450 mg) Exampled include Oat Milk, Flax Milk, [place] Milk, Cashew Milk, Soy Milk, Peas Milk general health and well being Examples of Food Sources of Calcium from [facility] Food Milligrams (mg) per serving Percent DV* Soymilk, calcium-fortified, 8 ounces 299 30 [place] juice, calcium-fortified, 6 ounces 261 26 Tofu, firm, made with calcium sulfate, cup* 253 25 Tofu, soft, made with calcium sulfate, cup* 138 14 Nvrti-ta-efx cereal, calcium-fortified, 1 cup 100-1,000 10-100 Turnip greens, fresh, boiled, cup 99 10 Kale, raw, chopped, 1 cup 100 10 Kale, fresh, cooked, 1 cup 94 9 Egyptian cabbage, bok marin, raw, shredded, 1 cup 74 7 Bread, white, 1 slice 73 7 Tortilla, corn, fbqxm-nn-gbpy/marshall, one 6 diameter 46 5 Tortilla, flour, tlpnt-op-ulzi/marshall, one 6 diameter 32 3 Bread, whole-wheat, 1 slice 30 3 Broccoli, raw, cup 21 2 * DV = Daily Value. DVs were developed by the U.S. Food and Drug Administration to help consumers compare the nutrient contents among products within the context of a total daily diet. The U.S. Department of Agriculture s (USDA s) Nutrient Database Web site lists the nutrient content of many foods and provides comprehensive list of foods containing calcium arranged by nutrient content and by food name. *Calcium content varies slightly by fat content; the more fat, the less calcium the food contains. * Calcium content is for tofu processed with a calcium salt. Tofu processed with other salts does not provide significant amounts of calcium. You could acces this information online at: http://ods.od.nih.gov/factsheets/Calci -[facility]/ Vitamin D: Vitamin D3= cholecalciferol, available over the counter. Dose recommended 800 to 1000 iu daily with a meal; Certain patients require 1676-1858 iu daily and in patients deficient in Vitamin D, they require higher dosages. Certain patient requires higher dose, depending on their Vit D blood levels. Vitamin D is essential for calcium metabolism. It is really a hormone produced mainly in your skin after exposure to sunlight. Vitamin D helps you absorb calcium from your stomach and kidneys and incorporates it into your bones. Studies show approximately 50% of [place] men and women are vitamin D deficient in the winter. Milder cases of vitamin D are usually asymptomatic so the only way to know you have a problem is to have a blood level checked. More severe cases can cause osteomalacia (a.k.a. rickets) which can result in bone pain, weak bones and several abnormal laboratory tests and also weak muscles (a.k.a. myopathy). When this happens, your bones lose a lot of their calcium stores as the body tries to regulate the calcium required by other tissues. Prolonged deficiency can lead to severe bone disorders and fractures. Unlike calcium, dietary sources of vitamin D are rare, limited to a few fish oils particularly cod-liver oil, other fortified foods and egg yolks. and most are unhealthy. Natural source of vitamin D is through sunshine. This is usually during jose seasons, for example a 30 minute exposure to sunshine. Some people are unable to be exposed to the sun due to skin condition. Often supplementation is needed. Many multivitamins contain some vitamin D and vitamin D alone preparations are now available in several forms. The recommended daily intake of vitamin D used to be 400 and 800 international units, however, it is now known that larger amounts are needed, as discussed above. Your doctor can prescribe prescription strength vitamin D for you if necessary, if you have marked deficiency or diseases of the liver or kidney. Supplementation in patients with severe deficiency can stabilize or improve bone mineral density and in frail elderly persons, may reduce their risk of falling. Additional Information is available from: www.nof.org (the national osteoporosis foundation) http://www.[facility].org/arthrit is/osteo/info.htm http://ods.od.nih.gov/factsheets/vitam ind.asp National Institutes of Health: 5-272-297-BONE [facility] Information [place]: Review of Osteoporosis medications Medications that prevent bone loss and Osteoporosis fractures: -IV Reclast, is 5 mg intravenous infusion given once a year for Osteoporosis and once every two years for Osteopenia. This is a 15 to 20 minute infusion given at our infusion center. For that infusion, it would be important to have completed any necessary dental work and continue following with your dentist every 6 months and the recommended lab work we ordered. You would need to be well hydrated to insure good kidney function. Please insure adequate hydration with water, about 6 to 8 cups of water, the day before, the day of the infusion and the day after. Please avoid dehydration in general. Some people experience flu like symptoms and low grade fever, after the infusion. This is usually self limited and will resolve. The recommended treatment for symptom relief is taking acetaminophen/Tylenol two extra strength tablets (500mg each) every 6 hours until this has resolved, usually does not last more than 3 days. IV Reclast once a year is usually limited to no more than 3 yrs, to prevent increased risk for atypical fracture of femur. Other less potent Osteoporosis medications, such as evista and miacalcin have not been proven to prevent non-vertebral fractures Reviewed importance of regular dental care, follow up with dentist and good oral hygiene We also reviewed risk of ONJ and atypical fracture of femur Risks, benefits, alternatives, reported side effects, indication, limitations/expectation of medication(s) were discussed with patient. Written information provided for patient review. The nature of osteopenia and osteoporosis and bone thinning, as well as bone loss, was discussed with the patient as well as risk factors for osteoporosis and bone loss, as well as risk factors for fragility fractures from osteoporosis and reported associated risk of morbidity and mortality. I also informed patient that osteoporosis is a silent disease, it is asymptomatic and does not lead to pains. Patients with new bone pains require evaluation for fractures. Patients with chronic pains should not be assumed that is from osteoporosis. I also reviewed with patient risk of fragility fracture from osteoporosis and indication and recommendations by the National Osteoporosis Foundation for pharmacologic therapy and standard of care to decrease risk of OP fractures and bone loss. I reviewed indication for therapy with FDA approved osteoporosis medications with the patient and based on current guidelines and recommendations. I reviewed risk of atypical fracture of femur and ONJ with anti-resorptive therapy. With reports and concern regarding atypical and subtroch. fracture of femur with detention use of bisphosphonates/alendronate and anti-resorptive agents, there have been recommendations for consideration for drug holiday (for 1 year or more, this has not been outlined clearly either) after completing 3 yrs (on IV Reclast) and 5 yrs (on oral bisphosphonate). We also follow bone markers and monitor for evidence of oversuppression with anti-resorptive agents. I offered additional time to address all patient's questions and answer all OP questions. At [facility], we work as a team for your care, along with Nurse Practitioners, Physician Assistants, Nurses and Medical Assistants. It is a privilege and honor to serve you. Thank you for choosing [facility] for your healthcare. Sincerely, Nidia Weston APRN.MANAGER COLLECTION PAST MEDICAL HISTORY Diagnosis Date Monoclonal gammopathy History reviewed. No pertinent surgical history. Social History Tobacco Use Smoking status: Former Smokeless tobacco: Never Tobacco comments: quit in 2011 Vaping Use Vaping Use: Never used Substance Use Topics Alcohol use: Never Drug use: Never History reviewed. No pertinent family history. ALLERGIES No Known Allergies Current Outpatient Medications Medication Sig ENTYVIO 300 mg injection as directed every 8 wks sulfaSALAzine EC (AZULFIDINE EN) 500 mg EC tablet TAKE 2 TABLETS BY MOUTH 4 TIMES A DAY turmeric root extract 500 mg cap Take by mouth. Take one(1) tablet three times daily. Azelastine HCl (OPTIVAR) 0.05 % ophthalmic solution INSTILL 1 DROP INTO EYE ONCE DAILY folic acid 1 mg tablet Take 1 mg by mouth once daily. Cholecalciferol, Vitamin D3, 5,000 unit cap Take 5,000 Units by mouth once daily. patient taking once daily with food ezetimibe (ZETIA) 10 mg tablet Take 10 mg by mouth once daily. atorvastatin (LIPITOR) 20 mg tablet Take 20 mg by mouth once daily. lisinopril (ZESTRIL, PRINIVIL) 20 mg tablet Take 20 mg by mouth once daily. Omeprazole 40 mg capsule Take 40 mg by mouth once daily. CHEWABLE MULTI VITAMIN ORAL Take by mouth. No current facility-administered medications for this visit. RELEVANT PREVIOUS INVESTIGATIONS: Calcium Date Value Ref Range Status 08/22/2020 9.4 8.5 - 10.2 mg/dL Final 01/17/2020 9.3 8.5 - 10.2 mg/dL Final 02/10/2019 9.5 8.5 - 10.2 mg/dL Final Calcium, Total Date Value Ref Range Status 12/01/2023 10.2 8.5 - 10.2 mg/dL Final Phosphorus Date Value Ref Range Status 08/22/2020 2.8 2.7 - 4.8 mg/dL Final 01/17/2020 2.5 (L) 2.7 - 4.8 mg/dL Final 07/12/2019 2.5 (L) 2.7 - 4.8 mg/dL Final 02/10/2019 2.2 (L) 2.7 - 4.8 mg/dL Final Alkaline Phosphatase Date Value Ref Range Status 01/12/2024 211 (H) 38 - 113 U/L Final 12/01/2023 171 (H) 38 - 113 U/L Final 08/22/2020 135 (H) 38 - 113 U/L Final 02/10/2019 152 (H) 38 - 113 U/L Final PTH, Intact Date Value Ref Range Status 01/17/2020 42 15 - 65 pg/mL Final 02/10/2019 57 15 - 65 pg/mL Final 08/19/2018 43 15 - 65 pg/mL Final 08/29/2015 55 15 - 65 pg/mL Final NTX, Serum Date Value Ref Range Status 08/19/2018 16.9 5.4 - 24.2 nM BCE Final TSH Date Value Ref Range Status 08/19/2018 1.930 0.400 - 5.500 uU/mL Final Testosterone Free Date Value Ref Range Status 08/19/2018 83.1 41.7 - 180.2 pg/mL Final Comment: This test was developed and its performance characteristics determined by [facility]'s [facility]eev [facility]itt[facility] [place] [facility] It has not been cleared or approved by the FDA. [facility] is regulated under CLIA as qualified to perform high-complexity testing. This test is used for clinical purposes. It should not be regarded as investigational or for research. Testosterone Date Value Ref Range Status 08/19/2018 387 193 - 824 ng/dL Final Comment: A testosterone level in the 193-320 ng/dL range with associated clinical symptoms is considered low and may indicate hypogonadism (from [facility] 2010 [id number]). Results >320 ng/dL are considered normal. Vitamin D 25 Hydroxy Date Value Ref Range Status 12/01/2023 63.0 31.0 - 80.0 ng/mL Final Comment: Classification of 25 [place] Vitamin D status: Deficiency/Insufficiency: < or = 30 ng/ml. Sufficiency/Optimal Levels: 31-80 ng/mL Toxicity: > 100 ng/mL. Test performed by chemiluminescent immunoassay. 01/29/2022 43.5 31.0 - 80.0 ng/mL Final Comment: Classification of 25 OH Vitamin D status: Deficiency/Insufficiency: < or = 30 ng/ml. Sufficiency/Optimal Levels: 31-80 ng/mL Toxicity: > 100 ng/mL. Test performed by chemiluminescent immunoassay. 02/20/2021 44.2 31.0 - 80.0 ng/mL Final Comment: Classification of 25 OH Vitamin D status: Insufficiency/Moderate Deficiency: < or = 30 ng/mL Sufficiency/Optimal Levels: 31 to 80 ng/mL Toxicity: > 100 ng/mL Test performed by chemiluminescent immunoassay. 08/22/2020 48.4 31.0 - 80.0 ng/mL Final Comment: Classification of 25 [place] Vitamin D status: Insufficiency/Moderate Deficiency: < or = 30 ng/mL Sufficiency/Optimal Levels: 31 to 80 ng/mL Toxicity: > 100 ng/mL Test performed by chemiluminescent immunoassay. Creatinine Date Value Ref Range Status 12/01/2023 0.92 0.73 - 1.22 mg/dL Final 08/22/2020 0.79 0.73 - 1.22 mg/dL Final 01/17/2020 0.83 0.73 - 1.22 mg/dL Final 02/10/2019 0.86 0.73 - 1.22 mg/dL Final Creat Clearance Date Value Ref Range Status 01/26/2020 85 - 125 mL/min Final Unable to calculate creatinine clearance. No serum creatinine available. Protein, Total Date Value Ref Range Status 12/01/2023 8.0 6.3 - 8.0 g/dL Final 01/29/2022 7.2 6.3 - 8.0 g/dL Final 08/22/2020 7.1 6.3 - 8.0 g/dL Final 08/22/2020 6.4 6.3 - 8.0 g/dL Final Albumin Date Value Ref Range Status 12/01/2023 3.9 3.9 - 4.9 g/dL Final 08/22/2020 4.4 3.9 - 4.9 g/dL Final 01/17/2020 4.0 3.9 - 4.9 g/dL Final 02/10/2019 4.5 3.9 - 4.9 g/dL Final Alpha 1 Globulin Date Value Ref Range Status 01/29/2022 0.22 0.18 - 0.31 g/dL Final 08/22/2020 0.22 0.18 - 0.31 gm/dL Final 01/26/2020 0.27 0.18 - 0.31 gm/dL Final Alpha 2 Globulin Date Value Ref Range Status 01/29/2022 0.46 (L) 0.52 - 0.97 g/dL Final 08/22/2020 0.44 (L) 0.52 - 0.97 gm/dL Final 01/26/2020 0.57 0.52 - 0.97 gm/dL Final Beta Globulin Date Value Ref Range Status 01/29/2022 0.87 0.84 - 1.36 g/dL Final 08/22/2020 0.92 0.84 - 1.36 gm/dL Final 01/26/2020 0.98 0.84 - 1.36 gm/dL Final Gamma Globulin Date Value Ref Range Status 01/29/2022 1.45 (H) 0.70 - 1.44 g/dL Final 08/22/2020 1.04 0.70 - 1.44 gm/dL Final 01/26/2020 1.22 0.70 - 1.44 gm/dL Final Interpretation (Prot Electro) Date Value Ref Range Status 01/29/2022 No definitive M protein is identified on protein electrophoresis. Final No definitive M protein is identified on protein electrophoresis. 08/22/2020 SEE COMMENT Final Comment: No definitive M protein is identified on protein electrophoresis. 01/26/2020 SEE COMMENT Final Comment: No definitive M protein is identified on protein electrophoresis. MPA IgA, Serum Date Value Ref Range Status 08/22/2020 213 70 - 400 mg/dL Final 08/19/2018 188 78 - 391 mg/dL Final MPA IgG, Serum Date Value Ref Range Status 08/22/2020 1,098 700 - 1,600 mg/dL Final 08/19/2018 1,270 717 - 1,411 mg/dL Final MPA IgM, Serum Date Value Ref Range Status 08/22/2020 167 40 - 230 mg/dL Final 08/19/2018 147 53 - 334 mg/dL Final MPA [place], Serum Date Value Ref Range Status 08/19/2018 1,020 534 - 1,267 mg/dL Final MPA Lambda, Serum Date Value Ref Range Status 08/19/2018 551 253 - 653 mg/dL Final MPA [place]/Lambda Ratio Date Value Ref Range Status 08/19/2018 1.85 1 - 3 Final IgA Date Value Ref Range Status 01/29/2022 221 70 - 400 mg/dL Final 01/26/2020 202 78 - 391 mg/dL Final 08/19/2018 198 78 - 391 mg/dL Final 08/29/2015 207 78 - 391 mg/dL Final Vitamin D 25 Hydroxy (ng/mL) Date Value 12/01/2023 63.0 02/20/2021 44.2 ] Calcium, Total Date Value Ref Range Status 12/01/2023 10.2 8.5 - 10.2 mg/dL Final Creatinine Date Value Ref Range Status 12/01/2023 0.92 0.73 - 1.22 mg/dL Final 08/22/2020 0.79 0.73 - 1.22 mg/dL Final 01/17/2020 0.83 0.73 - 1.22 mg/dL Final 02/10/2019 0.86 0.73 - 1.22 mg/dL Final Calcium, Total Date Value Ref Range Status 12/01/2023 10.2 8.5 - 10.2 mg/dL Final TSH Date Value Ref Range Status 08/19/2018 1.930 0.400 - 5.500 uU/mL Final Last Bone Density DXA-AXIAL SKELETON Exam End: 09/23/2022 10:03 AM (Final result) Narrative: * * *Final Report* * * DATE OF EXAM: Sep 23 2022 10:03AM NELLA [id number] - BD DXA - AXIAL SKELETON / PROCEDURE REASON: multiple diagnoses * * * * Physician Interpretation * * * * EXAMINATION: DXA BONE DENSITOMETRY BD DXA - AXIAL SKELETON PATIENT DEMOGRAPHICS: Age: 57 years, Race: , Gender: Male SCANNER INFORMATION: DXA Model: [employer] W [id number] SITE SCANNED: Lumbar spine and left hip Date Scanned: 09/23/2022 10:03 AM Date of prior scan(s): 08/22/2020, 08/19/2018 CLINICAL HISTORY: DIAGNOSTIC Other osteoporosis without current pathological fracture High risk for hip fracture Bone loss Vitamin D deficiency. RISK FACTORS FOR OSTEOPOROSIS AND ASSOCIATED FRACTURES REPORTED BY THIS PATIENT: Parent with a history of HIP fracture Height loss of 1.5 inches or more Prior smoking history Ulcerative Colitis Vitamin D deficiency History of kidney stones No exercise Rheumatoid arthritis CURRENT THERAPY: Vitamin D and Multivitamin TECHNICAL LIMITATIONS: Degenerative disease of the spine L4 is/are deleted, per ISCD guidelines, because changes at this level may artificially alter the bone density measurement. -These show greater density compared to adjacent levels, greater than 1 SD. X-rays may be necessary to rule out sclerotic bone lesions or compression deformity at this level, clinical correlation recommended. Right hip(s) could not be scanned due to prior surgery RESULTS: Lumbar spine (L1-L3): 0.899 g/cm2, T-score -1.6, Lumbar spine: 2019: 0.861 g/cm2 No statistically significant change Lumbar spine: 2018: 0.845 g/cm2 Left Femoral Neck: 0.589 g/cm2, T-score -2.5, Z-score -1.6 Left Femoral Neck: 2019: 0.568 g/cm2 No statistically significant change Left Femoral Neck: 2017: 0.594 g/cm2 Left Total Hip: 0.671 g/cm2, T-score -2.4, Z-score -2.0 Left Total Hip: 2019: 0.645 g/cm2 No statistically significant change Left Total Hip: 2018: 0.688 g/cm2 CHANGE IS STATISTICALLY SIGNIFICANT IN THE SPINE OR HIP IF GREATER THAN OR EQUAL TO 0.04g/cm2 Impression: IMPRESSION: THE LOWEST T-SCORE IS -2.5 IN THE LEFT HIP 1) DIAGNOSIS (based on BMD alone): OSTEOPOROSIS The lowest T-score is used for diagnosis/impression Z-scores will be reported if <-1.0 or if > or = to+3.0 Note that if the patient's prior bone density test was consistent with osteoporosis, the clinical diagnosis remains Osteoporosis. Note that regardless of bone mineral density measurement, a patient may be clinically diagnosed with osteoporosis if they have had a prior fragility fracture. Caution: Medical conditions other than osteoporosis may cause low bone density, such as osteomalacia or renal osteodystrophy. Clinical correlation is necessary. 2) FRACTURE RISK (based on BMD alone): INCREASED Caution: Fracture risk may be increased independent of BMD in patients with corticosteroid use, age greater than 65 years, or a history of prior fragility fracture. The lowest T-score is used for diagnosis. Z-scores will be reported if <-1.0 or if > or = +3.0 RECOMMENDATIONS: Note that some medical conditions may cause low bone density, such as osteomalacia, vitamin D deficiency, multiple myeloma, renal osteodystrophy, hyperparathyroidism, hypogonadism, certain endocrinologic conditions, inflammatory arthropathies, gastrointestinal diseases and malabsorption, and certain medications such as, but not limited to, systemic steroids, anticonvulsants, clinical correlation is necessary. Evaluation of vitamin D status is recommended All patients should receive the recommended daily allowance of calcium and vitamin D, as recommended by the NOF and clinically indicated. Weight bearing exercises and strength training should be considered. Cessation of smoking and moderation of intake of alcohol, caffeine and carbonated beverages are recommended (for additional information please refer to NOF website at www.nof.org). Evaluation for secondary causes of bone loss is recommended in patients with a Z-score of less than -1.5 (see web-site for more details). Patients who have had a height loss of 1.5 inches or more since their peak height (tallest height), should be considered for evaluation of vertebral compression fractures by x-ray of the thoracic(with swimmers views) and lumbar spine. RECOMMENDATIONS FOR PHARMACOLOGIC THERAPY: National Osteoporosis Foundation (NOF) treatment recommendations (2008) Postmenopausal women and men age 50 and older presenting with the following should be treated: A hip or vertebral (clinical or morphometric) fracture T-score less than or equal to -2.5 at the femoral neck, total hip or spine after appropriate evaluation to exclude secondary causes For patients not on pharmacologic therapy for more than 2 years, the following recommendations may apply: Low bone mass (T-score between -1.0 and -2.5 at the femoral neck, total hip or spine) and 10 year probability of hip fracture greater than or equal to 3% or a 10 year probability of any major osteoporosis-related fracture greater than or equal to 20% based on the [place] adapted WHO algorithm for FRAX(TM): www.fili.ac.uk/FRAX/tool.jsp or The WHO Fracture Risk Assessment Tool at [email or web address] PLEASE NOTE: THE DXA SCANNER USED FOR THIS PATIENT IS LISTED IN THE ABOVE DEMOGRAPHICS. THE TYPE OF SCANNER MUST BE ENTERED IN THE FRAX(TM) CALCULATOR TO CORRECT FOR DXA SCANNER VARIABILITY. PLEASE NOTE FRAX(TM) + Does not apply to premenopausal patients + DOES NOT APPLY TO TREATED OR PREVIOUSLY TREATED PATIENTS within past 2 years, please review updates from website listed above. ALL RECOMMENDATIONS AND CALCULATIONS ARE TO BE CONSIDERED GUIDELINES AND SHOULD NOT REPLACE SOUND CLINICAL JUDGMENT Follow-up in 2 years or as clinically indicated. Patients that are taking corticosteroids, are transplant recipients or have hyperparathyroidism should have annual follow-up. Follow-up scans should always be done on the same machine for accurate comparison. FOR MORE INFORMATION: [facility]: [email or web address]/arthritis/osteo National Osteoporosis Foundation: www.nof.org International Society of Clinical Densitometry www.iscd.org Poster: [id number] Transcribe Date/Time: Sep 23 2022 10:28A Dictated by : DARRIAN DUBON MD This examination was interpreted and the report reviewed and electronically signed by: DARRIAN DUBON MD on Sep 28 2022 6:46PM EST documented in this encounter [facility] 03-14-2024 Note HNO ID: [id number] Author: NIDIA WESTON APRN.JOSE Service: ? Author Type: Nurse Practitioner Type: Progress Notes Filed: 04/11/2024 19:56 Note Text: Follow up Jam Toscano is a very nice 58 year old male seen for Rheumatoid Arthritis and Osteoporosis Subjective: Dr. Luis Antonio Vicente Had colonoscopy - no inflammation Biospys - no results yet ,polyps High alk phos Ordered fibroscan Needs repeat scope Patient reports: Low iron- following with Dr. Lomeli Has not been taking iron consistently Following urology enlarged prostate Has kidney stones Pain- no No joint swelling Enlarged mcps #3 right Sleeps on flat pillow helps Some itching hands - changed back to amanda dish soap improved No falls No interim fractures No new bone pains No dental or Jaw problems or pains. Denies jaw pains Follows with dentist every 6 months Denies upcoming dental work or invasive procedures No dental concerns [facility] [phone] No serious infections or fevers Stopped celebrex - does not feel he needs Following with ortho for prior knee and hip replacements Exercise- has exercise bike Sometimes not drinking enough water GI - colitis- has been calm since last treatment SSZ 2 tabs 4 times daily entyvio Calcium dietary Vit d 5000 international unit(s) daily Mesalamine nightly Tumeric daily - started by GI- tid 500mg OP therapy: not on op treatment Wants to wait until everything calmed Med well tolerated Bone tests were reviewed at this visit Full labs enclosed Review of Systems CONSTITUTION: Negative for: Weight loss or gain, Fever. Chills, Night sweats HEENT: Negative for: Nosebleeds, Mouth sores, Trouble swallowing, Dry mouth RESPIRATORY: Negative for: Cough, Shortness of breath, Pain with breathing, Coughing up blood GASTROINTESTINAL: Negative for: Melena, Diarrhea, Heartburn and Abdominal pain MUSCULOSKELETAL: Negative for: Arthralgias, Myalgias, Muscle weakness, Joint swelling and Morning Joint Stiffness NEUROLOGICAL: Negative for: Headaches, Numbness, Memory loss, SKIN: Positive for: Hair loss (thinning) Negative for: Rash, Sun Sensitive Rash, Skin changes and Nail changes EYES: Negative for: Eye pain, Eye redness, Visual disturbance, Eye dryness CARDIOVASCULAR: Negative for: Chest pain, Leg swelling, Arrhythmia, Presyncope GENITOURINARY: Negative for: Dysuria, Hematuria and Ulcerations Still has a kidney stone Following with urology- will see someone else if has further issues HEMATOLOGIC/LYMPHATIC: Negative for: Swollen glands - medical history - medications - allergies - family history - social history - radiology - tests Full details in patient's emr chart Additional pertinent test results reviewed Pertinent imaging scans/films reviewed Physical Exam BP 121/83 Pulse 97 Wt 74.9 kg (165 lb 2 oz) SpO2 97% BMI 26.66 kg/m? General Appearance: WD/WN, NAD. Appropriate grooming. SKIN: No rash, no psoriasis, no purpura, no ulcers, no skin thickening/tightness, no circular telangiectasias. HEENT: No patchy alopecia, no conjunctival injection or icterus, no oral ulcers, no thrush NECK: neck supple w/o masses, no thyromegaly, no LAD. LUNGS: CTA, Good respiratory effort. HEART: RRR, - m/r/g Abd; soft, NT, I did not palpate HSM EXTREMITIES: Adequate pulses b/l UE ; No clubbing,discoloration,sclerodactyly, periungual erythema, digital ulcers, nail pitting; mild LE pitting edema with hypopigm. of skin, denies tenderness or sensitivity, no skin demarcation. MUSCULOSK: Stable multiple severe joint deformities involving the wrists, fingers, ankles and feet Wrist fusion b/l, also with ankyloses of b/l multiple fingers bony deformities of left ankle and pes planus, with valgus deformity of ankle. multiple swan neck deformities, toe deformities Rheumatoid nodules in b/l olecranon bursae stable Swoll JTS:0 Tend. JTS:0 Enlarged mcps #3 right Left elbow contracted Stiff with rom bilateral shoulders - improved No clinical synovitis in the DIP's, PIP's, MCP's, wrists, elbows, shoulders, knees, ankles, midfoot, or toes. No knee effusions bilateral, s/p TKR b/l Shoulder exam: ROM without pain, limitations with full abd LIMITATION of Motion of Joints: multiple as above Thoracic/Lumbar Spine: No percussion tenderness No instability in any upper or lower extremity joints. NEURO: Mental Status: alert and oriented x 3, cheerful, CN II - XII grossly intact Motor: 5/5 proximally and distally b/l Sensory: intact to fine touch Gait: non-antalgic limp sec to chronic foot deformities w/o assistive devices Tone: normal ASSESSMENT: M05.79 Rheumatoid arthritis 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) (primary encounter diagnosis) E55.9 Vitamin D deficiency M81.8 Other osteoporosis without current pathological fracture Z71.89 Encounter for medication review and counseling Per (more content not included)... [facility] 02-29-2024 Note [id number] [facility] 02-16-2024 Miscellaneous Notes Spoke with patient. Will be seeing Dr Beto García, on 02/26/24. Results and consult faxed with confirmation. Left message for patient to call office regarding below. Pt has a upcoming appt with Nidia in February. I do not see a appt with GI please verify with pt when he returns call Please call patient I see she has appointment with GI for February She has elevated alk phos with high liver portion We can see if her GI can follow her for liver too - please send results I placed consult this can be faxed as well Sed rate slightly above normal - this can be normal for age. Crp normal We can discuss further at upcoming visit Latest Ref Rng 01/12/2024 WBC 3.70 - 11.00 k/uL 8.05 RBC 4.20 - 6.00 m/uL 4.71 Hemoglobin 13.0 - 17.0 g/dL 13.9 Hematocrit 39.0 - 51.0 % 43.6 MCV 80.0 - 100.0 fL 92.6 MCH 26.0 - 34.0 pg 29.5 MCHC 30.5 - 36.0 g/dL 31.9 RDW-CV 11.5 - 15.0 % 15.0 Platelet Count 150 - 400 k/uL 339 MPV 9.0 - 12.7 fL 9.4 Neut% % 69.0 Abs Neut (ANC) 1.45 - 7.50 k/uL 5.55 Lymph% % 22.9 Abs Lymph 1.00 - 4.00 k/uL 1.84 Hickman% % 7.3 Abs Hickman <0.87 k/uL 0.59 Eosin% % 0.1 Abs Eosin <0.46 k/uL <0.03 Baso% % 0.5 Abs Baso <0.11 k/uL 0.04 Immature Gran % % 0.2 IMMATURE GRANS (ABS) <0.10 k/uL <0.03 NRBC /100 WBC 0.0 Absolute nRBC <0.01 k/uL <0.01 DTYPE Auto Alk Phos Bone % 10.7 - 68.3 % 16.2 Bone Fraction 12.9 - 52.6 U/L 34.2 Alk Phos Liver % 26.0 - 86.2 % 83.8 Liver Fraction 16.0 - 69.3 U/L 176.8 (H) Alk Phos Intestine % 0.0 - 24.2 % 0.0 Intestine Fraction 0.0 - 16.3 U/L 0.0 CRP <0.9 mg/dL 0.4 WSR 0 - 15 mm/hr 34 (H) Alkaline Phosphatase 38 - 113 U/L 211 (H) documented in this encounter [facility] 01-12-2024 Note HNO ID: [id number] Author: NIDIA WESTON APRN.CNP Service: ? Author Type: Nurse Practitioner Type: Progress Notes Filed: 02/14/2024 23:31 Note Text: Follow up Jam Toscano is a very nice 58 year old male seen for Rheumatoid Arthritis and Osteoporosis Subjective: Patient reports: Low iron- following with Dr. Lomeli Has not been taking iron consistently Following with GI - Dr. Salmon in [place] Has scope scheduled February 25 Last visit high inflammation Flare after covid 11/04/2023 Given pred for flare Dr. Lomeli Pain- no No joint swelling Pain have improved since steroid Off steroid Sleeps on flat pillow helps No falls No interim fractures No new bone pains No dental or Jaw problems or pains. Denies jaw pains Follows with dentist every 6 months Denies upcoming dental work or invasive procedures No dental concerns [facility] [phone] No serious infections or fevers Stopped celebrex - does not feel he needs Following with ortho for prior knee and hip replacements Exercise- has exercise bike Sometimes not drinking enough water GI - colitis- has been calm since last treatment SSZ 2 tabs 4 times daily entyvio Calcium dietary Vit d 5000 international unit(s) daily Mesalamine nightly Tumeric daily - started by GI- tid 500mg OP therapy: not on op treatment Wants to wait until everything calmed Med well tolerated Bone tests were reviewed at this visit Full labs enclosed Review of Systems CONSTITUTION: Negative for: Weight loss or gain, Fever. Chills, Night sweats HEENT: Negative for: Nosebleeds, Mouth sores, Trouble swallowing, Dry mouth RESPIRATORY: Negative for: Cough, Shortness of breath, Pain with breathing, Coughing up blood GASTROINTESTINAL: Positive for: Abdominal pain (occasional cramping) Negative for: Melena, Diarrhea and Heartburn MUSCULOSKELETAL: Negative for: Arthralgias, Myalgias, Muscle weakness, Joint swelling and Morning Joint Stiffness NEUROLOGICAL: Negative for: Headaches, Numbness, Memory loss, SKIN: Positive for: Hair loss (thinning) Negative for: Rash, Sun Sensitive Rash, Skin changes and Nail changes EYES: Negative for: Eye pain, Eye redness, Visual disturbance, Eye dryness CARDIOVASCULAR: Negative for: Chest pain, Leg swelling, Arrhythmia, Presyncope GENITOURINARY: Negative for: Dysuria, Hematuria and Ulcerations Still has a kidney stone Following with urology- will see someone else if has further issues HEMATOLOGIC/LYMPHATIC: Negative for: Swollen glands - medical history - medications - allergies - family history - social history - radiology - tests Full details in patient's emr chart Additional pertinent test results reviewed Pertinent imaging scans/films reviewed Physical Exam BP 132/88 Pulse 95 Wt 74.7 kg (164 lb 10.9 oz) SpO2 97% BMI 26.59 kg/m? General Appearance: WD/WN, NAD. Appropriate grooming. SKIN: No rash, no psoriasis, no purpura, no ulcers, no skin thickening/tightness, no circular telangiectasias. HEENT: No patchy alopecia, no conjunctival injection or icterus, no oral ulcers, no thrush NECK: neck supple w/o masses, no thyromegaly, no LAD. LUNGS: CTA, Good respiratory effort. HEART: RRR, - m/r/g Abd; soft, NT, I did not palpate HSM EXTREMITIES: Adequate pulses b/l UE ; No clubbing,discoloration,sclerodactyly, periungual erythema, digital ulcers, nail pitting; mild LE pitting edema with hypopigm. of skin, denies tenderness or sensitivity, no skin demarcation. MUSCULOSK: Stable multiple severe joint deformities involving the wrists, fingers, ankles and feet Wrist fusion b/l, also with ankyloses of b/l multiple fingers bony deformities of left ankle and pes planus, with valgus deformity of ankle. multiple swan neck deformities, toe deformities Rheumatoid nodules in b/l olecranon bursae stable Swoll JTS:0 Tend. JTS:0 Left elbow contracted Stiff with rom bilateral shoulders No clinical synovitis in the DIP's, PIP's, MCP's, wrists, elbows, shoulders, knees, ankles, midfoot, or toes. No knee effusions bilateral, s/p TKR b/l Shoulder exam: ROM without pain, limitations with full abd LIMITATION of Motion of Joints: multiple as above Thoracic/Lumbar Spine: No percussion tenderness No instability in any upper or lower extremity joints. NEURO: Mental Status: alert and oriented x 3, cheerful, CN II - XII grossly intact Motor: 5/5 proximally and distally b/l Sensory: intact to fine touch Gait: non-antalgic limp sec to chronic foot deformities w/o assistive devices Tone: normal ASSESSMENT: M05.79 Rheumatoid arthritis 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) (primary encounter diagnosis) Z71.89 Encounter for medication review and counseling Z71.2 Encounter to discuss test results Z79.899 On sulfasalazine therapy Z71.89 Counseling on health promotion and disease prevention Per Dr. Dubon last note (more content not included)... [facility] 12-01-2023 Note HNO ID: [id number] Author: NIDIA WESTON APRN.MANAGER COLLECTION Service: ? Author Type: Nurse Practitioner Type: Progress Notes Filed: 01/11/2024 23:15 Note Text: Follow up Telephone visit Jam Toscano is a very nice 58 year old male seen for Rheumatoid Arthritis and Osteoporosis Additional details per last visit note Subjective: Patient reports last Thursday went to ER Flare after covid 11/04/2023 Prednisone [address] Lomeli ordered pred taper today Was given steroid injection At bedtime left elbow pain Ankle pain Was Off prednisone for last month Started celebrex last week Was taking 400mg in and pm Now reduced - she is aware not to increased dosing Today 1.5 hour sleep When laying down more joint pain More stiffness in arms limited rom shoulders. Left elbow. No dental concerns [facility] [phone] GI - colitis- has been calm SSZ 2 tabs 4 times daily entyvio Vit d 5000 international unit(s) daily Mesalamine nightly Tumeric daily - started by GI- tid 500mg Following with ortho for prior knee and hip replacements No falls No interim fractures No new bone pains No serious infections or fevers OP therapy: not on treatment Review of Systems CONSTITUTION: Negative for: Weight loss or gain, Fever. Chills, Night sweats HEENT: Negative for: Nosebleeds, Mouth sores, Trouble swallowing, Dry mouth RESPIRATORY: Negative for: Cough, Shortness of breath, Pain with breathing, Coughing up blood GASTROINTESTINAL: Positive for: Diarrhea and Abdominal pain Negative for: Melena and Heartburn MUSCULOSKELETAL: Negative for: Arthralgias, Myalgias, Muscle weakness, Joint swelling and Morning Joint Stiffness NEUROLOGICAL: Negative for: Headaches, Numbness, Memory loss, SKIN: Positive for: Hair loss (thinning) Negative for: Rash, Sun Sensitive Rash, Skin changes and Nail changes EYES: Negative for: Eye pain, Eye redness, Visual disturbance, Eye dryness CARDIOVASCULAR: Negative for: Chest pain, Leg swelling, Arrhythmia, Presyncope GENITOURINARY: Negative for: Dysuria, Hematuria and Ulcerations Still has a kidney stone Following with urology- will see someone else if has further issuses HEMATOLOGIC/LYMPHATIC: Negative for: Swollen glands - medical history - medications - allergies - family history - social history - radiology - tests Full details in patient's emr chart Additional pertinent test results reviewed Pertinent imaging scans/films reviewed Physical Exam BP 122/76 Pulse 92 Wt 72.8 kg (160 lb 7.9 oz) BMI 25.92 kg/m? General Appearance: WD/WN, NAD. Appropriate grooming. SKIN: No rash, no psoriasis, no purpura, no ulcers, no skin thickening/tightness, no circular telangiectasias. HEENT: No patchy alopecia, no conjunctival injection or icterus, no oral ulcers, no thrush NECK: neck supple w/o masses, no thyromegaly, no LAD. LUNGS: CTA, Good respiratory effort. HEART: RRR, - m/r/g Abd; soft, NT, I did not palpate HSM EXTREMITIES: Adequate pulses b/l UE ; No clubbing,discoloration,sclerodactyly, periungual erythema, digital ulcers, nail pitting; mild LE pitting edema with hypopigm. of skin, denies tenderness or sensitivity, no skin demarcation. MUSCULOSK: Stable multiple severe joint deformities involving the wrists, fingers, ankles and feet Wrist fusion b/l, also with ankyloses of b/l multiple fingers bony deformities of left ankle and pes planus, with valgus deformity of ankle. multiple swan neck deformities, toe deformities Rheumatoid nodules in b/l olecranon bursae stable Swoll JTS:Mcps 2-3 bilteral Tend. JTS:Mcps 2-3 bilteral Left elbow contracted Stiff with rom bilateral shoulders No clinical synovitis in the DIP's, PIP's, MCP's, wrists, elbows, shoulders, knees, ankles, midfoot, or toes. No knee effusions bilateral, s/p TKR b/l Shoulder exam: ROM without pain, limitations with full abd LIMITATION of Motion of Joints: multiple as above Thoracic/Lumbar Spine: No percussion tenderness No instability in any upper or lower extremity joints. NEURO: Mental Status: alert and oriented x 3, cheerful, CN II - XII grossly intact Motor: 5/5 proximally and distally b/l Sensory: intact to fine touch Gait: non-antalgic limp sec to chronic foot deformities w/o assistive devices Tone: normal ASSESSMENT: M05.79 Rheumatoid arthritis 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) (primary encounter diagnosis) E55.9 Vitamin D deficiency Z71.2 Encounter to discuss test results Z71.89 Encounter for medication review and counseling Z79.899 On sulfasalazine therapy Z71.89 Counseling on health promotion and disease prevention Per Dr. Dubon last note -Chronic, severe long standing Rheumatoid Arthritis, deforming, erosive, nodular, prior to following with us Sero-positive s/p multiple joint surgeries Has multiple chronic joint deformities He has had very good response to Enbre (more content not included)... [facility] 05-05-2023 Miscellaneous Notes Faxed dental clearance letter to [facility] [phone]. LMOM for patient to call the office to schedule follow up in about 2 months (around 07/04/2023), or labs at least 1 week prior, for ov and reclast in 2-3 months , please precert. Please warn transfer to the Infusion center CC chart send: Return in about 2 months (around 07/04/2023), or labs at least 1 week prior, for ov and reclast in 2-3 months , please precert. Please schedule as requested. Anais Pate May 04, 2023 3:18 PM Spoke with Reggie at [facility], Letter can be faxed to Dr Mil Farrell for signing at [phone]. Please call for dental clearance All procedures complete, infection free, no upcoming dental procedure and ok with dentist prior to reclast If they need a letter may make one for them to send back [facility] [phone] documented in this encounter [facility] 05-04-2023 Instructions Nidia Weston APRN.JOSE - 05/04/2023 12:16 PM EDT -PLEASE NOTE THAT WE REVIEW ALL YOUR TEST RESULTS AT YOUR NEXT FOLLOW UP VISIT WITH YOU. IF ANY ABNORMAL LAB REQUIRES SOONER ATTENTION, WE WILL CONTACT YOU. -If you have signed up on [employer], we will release your test results through [employer]. I wish you the best of health and wellness. Please take care and stay safe and healthy. Consume a healthy diet, stay well hydrated, sleep well, be happy, improve stress (include meditation), exercise regularly. Spend some time in nature, around trees and osborn (forest bathing) and enjoy half an hour daily in the sun when possible (and benefit from its natural near infrared light, also your skin will be able to produce natural vitamin D). These have been shown to help with wellbeing, promoting a healthy immune system and healing. Instructions and Recommendations: Please follow up with your dentist as discussed and once you have completed dental work, please contact me so we can discuss Osteoporosis medication. You are on entyvio and sulfasalazine for your Ulcerative Colitis. These are also treating your Rheumatoid Arthritis. 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 Supplements recommended Vitamin B12: 500 to 1000 mcg once daily Vitamin D: 5000 international units once daily with meals multivitamin - Maintaining good vitamin D blood levels is important for bone health and overall health. Please see additional information on vitamin D below. A vitamin D blood test, called vitamin D 25-hydroxy (OH) is obtained to assess vitamin D level. If the vitamin D is low, you will need to take a vitamin D supplement. If you are already on a vitamin D supplement, then the dose will need to be adjusted. Also you multivitamin may contain vitamin D. Vitamin D is a fat soluble vitamin that requires it be taken with good fat to be absorbed. Examples of healthy fat include nuts, seeds, avocados, olives and for the most part the meal of the day. Spending up to 30 minutes in the sun during Summer and late Spring can provide natural vitamin D to the uncovered skin (arms, legs) - Your calcium can be sufficient in your diet. Healthy food that are rich in calcium include: nuts, seeds, legumes/beans, peas, dark green leafy vegetables, plant based milk Additional calcium rich foods listed below - Soaking Almonds overnight in the fridge with drinking water, can help with softening the almonds and improved absorption of the almonds. Please be careful not to break a tooth with dry raw almonds, or other hard nuts or seeds. If your lab work shows insufficient calcium or you are unable to consume sufficient foods rich in calcium, then a calcium supplement is recommended, such as calcium citrate. - You can track your nutrition and calcium intake on www.[employer].XING This provides macro and micronutrient intake and requirements. - You can track your calcium intake on cronometer.com or any other calcium tracker of your choice. If you are not getting about 1200 mg of calcium daily, you will need to add a calcium supplement, such as calcium citrate to supplement you daily calcium so you can achieve your total 1200 mg daily See additional information below on calcium. Please continue following with your dentist every 6 months If you are on Osteoporosis medication, please inform your dentist as invasive dental work with these medications can increase one's risk for ONJ (osteonecrosis of the jaw). Please continue with good oral hygiene and dental care - Please do your best follow, as close as you can, a Whole Food Plant Based diet lifestyle. It is important to avoid unhealthy foods and increase healthy and disease fighting foods. -Review the information provided below. -Start by avoiding all dairy. You can use non-dairy plant based alternatives -Decrease the amount of meat and animal product you consume. For your Ulcerative Colitis it is best to avoid all animal protein. If you need to consume a burger, you can chose a plant based burger. -Avoid fried food and cooking with oil, butter, ghee or fat, as much as possible. You can stir marshall your vegetables with vegetable broth or water. You can use an air fryer for crisping vegetables. Consider broiling, roasting your vegetables or steaming them. -Avoid consuming a lot of over processed foods and ones that contain artifical additives. -Learn 5 recipes that are plant based that you can cook comfortably and that you really like. Then cook at least one of these recipes every week. If you are unable to cook and prefer to have food prepared or delivered to you, you can order healthy plant based food at multiple sites available now for a cost, such as at www.[employer]. -When eating a whole food plant based diet, remember to eat well and sufficiently, as plant foods are naturally lower in calories. Make your plate contain starchy food, whole grains, non-starchy vegetables (such as green) and legumes/beans/tofu/tempeh. You can use tofu, soy curls, tempeh, mushrooms, lentils, beans, walnuts as meat substitutes in cooking. You can consume raw unsalted nuts and seeds as snacks or in your salads. Consume fruits during the day. The vegetables can purchased be fresh or frozen. -Remember to hydrate well with water. - I recommend following a healthy lifestyle. You can find additional information below. I recommend this to all my patients, as I have seen convincing scientific evidence, and seen the results in my practice, of the benefits of this healthy lifestyle to overall health and wellness. I hope you will find this beneficial as well. A whole plant based diet and healthy lifestyle have been reported to be optimal for health in general, anti-inflammatory diet, prevention of common chronic diseases, healthy weight management, memory and brain healthy, bone health. - You can track your nutrition and calcium intake on www.[email or web address].XING This provides macro and micronutrient intake and requirements. Recommendations for healthy lifestyle include: Healthy nutritious diet, anti-inflammatory diet, appropriate exercise, good sleep hygiene, stress management, supplementing vital deficiencies and maintaining healthy weight. with BMI that does not exceed 25 to 26 . 5 points to remember to improve your health and continue on a healthy path: 1- Optimal nutritious food, such as a Whole Plant Based diet You can watch the documentary movie that features the Whole Plant Based diet, [place] over knives (see video online and visit website). Another movie that was recently released is: Eating You Alive (you can find it at SlideRocket) and The [employer] movie Dr. Fauzia Ansari is a [facility] physician who is an expert in Whole Plant based diet. His website is [employer]. His research highlights the benefits of the Whole food plant based diet in reversing and preventing heart disease. Mrs. Ansari (his ) has a cookbook with many recipes on whole plant based food: The Prevent and Reverse Heart Disease cookbook. You can also consider reading his son, Eze Ansari's book: The Engine 2 cookbook Eze is a retired tree shear operator who has helped many people get healthier by following the whole food plant based diet. Dr. Rock Velazco, has a website and free claudia to help get started on a whole plant based diet, at www.pcrm.org and you can log on for free for his 21-Day Kickstart with meals and recipes to follow for 21 days. There is also a free claudia for that. He has multiple free videos and YouTube, for example: https://[email or web address].be/[email or web address] , [email or web address] He has written multiple books, including Power Here On Biz for the Brain, The Cheese Trap, Dr. Rock Velazco's Program for Reversing Diabetes, Your Body in Balance Dr. Anthony Carlson has shown the benefit of a starch based whole food plant based diet to his Rheumatoid Arthritis patients, as well as patient with diabetes II, hypertension, obesity, multiple sclerosis, heart disease, acne, and other, his website: [email or web address] [email or web address] Dr. Yayo Allred is a renowned non destructive testing scientist, who has studied and researched the benefits of the Whole plant based diet. He has also researched the adverse effects of animal proteins on health. He presents many of his research findings in his book The [place] study. Dr. Gerber Becker has completed many research trials proving the reversal of diseases, such as heart disease and early prostate cancer, with healthy lifestyle and the Whole Plant based diet. Dr. Gerber Becker website is: [email or web address] His new book: Undo It, has evidence based information and guide to following this healthy lifestyle. Dr. Cody Dillon has dedicated a website and additional time to reviewing all food related articles and research and presents them in his power point presentation and on his website at: nutritionfacts.org which is all free. Dr. Dillon has multiple free videos and YouTube, for example [email or web address] [email or web address] and [email or web address]://[email or web address]. He has written multiple books including: How Not To and How Not To Diet He is now working on his next book: How Not To Age Dr. Danitza Dash (from the [facility]), has articles on the following website: [employer] [employer].XING Also, you could find additional information on practical to follow recipes by reading or watching online and YouTube such as: Chef BELLE, Cooking With Plants, The Vegan Corner (recipes from an Chinese Fur Blower), The Whole Foods Plant Based Cooking Show and visiting the provided websites for additional information on the whole plant based benefit and cooking recipes. You can also consider watching the vlogs of some of the plant based Athletes such as Fausto Ewing Derek on [employer] app Nutrition. Dr. Maryan Holguin (a psychiatrist who suffered with lupus) has helped reverse her Systemic Lupus Erythematosus and helps many patients with their auto-immune diseases, based on her recommendations of the whole food plant based diet and the green smoothies. She has a facebook and website, and on youtube her channel is: Goodbypilar Lupus Some people have adverse effect or intolerance to gluten. Certain patients with auto-immune disease, including auto-immune thyroid disease, need to avoid gluten. If you suspect you are gluten sensitive or intolerant, consider gluten free diet. Gluten could lead to increased inflammation in the bowels and body in certain patients. Not all your food has to be organ if you cannot afford or find them. Consider organic and non-GMO products when shopping for your food, when possible. GMO are genetically modified food that may have adverse impact on our health. If you are unable to purchase organic of non-GMO, you can wash your produce with white vinegar or soak in baking soda and water (see details from Dr. Yañez's website nutritionfacts.org) and rinse well with water. 2- Regular Exercise, such as beginner yoga, tommie chi, stretching, cardio, gradual strengthening, pool therapy, physical therapy Come As You Are: YOGA - Gentle Yoga Anyone Can Do Anywhere [email or web address] Also on youtube: yoga with Karlie 3- Good Sleep (poor sleep impacts everything, recommended sleep is 7.5 to 8 hrs. a night). Certain people need less or more sleep. Meditation and relaxation techniques have shown to help with improving sleep. 4- Stress management, staying positive, be happy, laugh often (it is a great medicine) Find time to relax and meditate if possible. Following steps 1-3 will help with this as well. In psychiatric disorders, it is important to follow with a professional on the optimal management of depression, anxiety or psychiatric illness 5- Supplements Supplementing necessary vitamins and minerals, correcting any deficiencies, i.e. Vitamin D, B12, omega-3 fatty acids etc... Go natural when possible -Important notice: If you are following a Whole plant based diet, it is recommended to take Vitamin B12, sublingual, dissolve under the tongue, take once daily. Vitamin B12 is available over the counter, dose could be 2500 mcg, and can be taken once a week, and if your blood levels are low, you may need to take it once daily or a higher dose. Raw: Garlic, Cilantro, Pilot nuts, Pumpkin seeds, [place] seeds and Flax seed powder have been reported to help with certain metal detoxification such as mercury. [place]-3 plant based rich foods are good anti-inflammatory sources such as : david seeds, flax seed (needs to be ground), walnuts, hemp seeds, dark green leafy vegetables. It is important to avoid refined oils as much as possible especially that many have too much omega-6 that is pro-inflammatory (lead to inflammation as well as concern for heart and vascular disease). Turmeric can be found natural, used as the spice powder or the root with your food. This is also available as a capsule. If you are on a blood thinner, you will need to discuss with your pharmacist or physician before taking Turmeric If you have gall bladder disease or gall bladder stones, it is recommended to avoid turmeric capsules. Sweet cherries (raw cleaned or frozen), Turmeric , pineapple (contains bromelain), omega-rich foods, have anti-inflammatory benefit Start reviewing the Whole Plant Based Diet, by watching [place] over [employer] movie and then review website. There are many other resources and educational information on the Whole plant based diet on the Internet and documentaries. There are other resources for wellness that you can also benefit from, such as the [facility] website, [facility] and includes Plant based and Mediterranean diet, yoga and meditation. Please avoid all dairy products. You could use non-dairy milk such as Flax milk, Cashew milk, [place] milk, Rice milk, Oat milk or Hemp milk, instead. It is very important to avoid all: refined sugars (including high fructose syrup), refined carbohydrates, any artificial sweeteners and artificial preservatives, and soda and heavily processed food. Insure adequate hydration; drink at least 6 to 8 cups of water daily, certain people need less or more. Examples of Smoothies: Every morning you can start your day with a healthy natural anti-inflammatory smoothie, for example, you can blend: fresh or frozen sweet cherries, half a root of turmeric (1 to 2 inches), banana, blue berries, walnuts, few leaves of kale, add flax milk (or almond milk), and enjoy. You could add half an avocado if you like it smoother. If you do not tolerate walnuts, you can use flax seeds, david seeds or hemp seeds instead. If you do not like plant based milk, you can use coconut water or plain water instead. Other smoothies, including green smoothies, are also very healthy and highly anti-inflammatory. For example fruits (such as banana or frozen raul or pineapple) and add significant amount of leafy greens, then add water or coconut water and blend until smooth. You can also add turmeric in this recipe. GENERAL INFORMATION ON BONE HEALTH : -Bone Density testing (DXA scan) as recommended. -Vitamin D supplementation is recommended, unless blood levels are sufficient. Recommended daily dose of 1000 to 2000 IU total a day, or the dose necessary to achieve a Vitamin D 25-OH blood level of >31 and preferably closer to 40-60 ng/mL. Vitamin D pills are available over the counter. -Recommended daily dose of calcium: 1200mg total a day in divided doses. Calcium is usually sufficient in our regular diet, also available in multivitamins. Patients on certain dietary restrictions or those unable to meet their daily calcium by diety alone, may require calcium supplements. For patient with history of calcium kidney stones, Calcium Citrate would be the recommended supplement. It is recommended to avoid caclium carbonate supplement in this case, as these may increase risk of calcium kidney stones. The after visit summary has information on dietary calcium and instructions on reading calcium label and converting the %DV to mg. When you read a food label and you see calcium reported as DV %, add a zero and this will provide you with the approximate mg value of the calcium content in this food. For example, if a glass of almond milk is labeled as 40% calcium DV, then this contains 400 mg of calcium. For additional information, please see references provided. -Regular weight-bearing and muscle-strengthening exercise -Avoidance of tobacco smoking, excessive alcohol intake and excessive caffeine intake. -Fall and fracture precautions -It is recommend to continue regular follow up visits with your dentist every 6 months, and continue with good oral hygiene. Calcium: If your diet is sufficient in Calcium rich food, you will not need calcium supplement. Calcium Citrate is the preferred calcium if you have had kidney stones. Daily recommended calcium dose: 600mg twice a day with meals. Adequate calcium ingestion is essential for maintaining healthy bones. The recommended dose daily intake of calcium varies depending on individual needs but is usually between 1200 and 1500mg daily, preferably around 1200mg a day in divided dose (not all taken at once). This is equivalent to about five 8oz glasses of milk per day. Many foods are rich in calcium and they include: - Plant based, non-dairy, calcium rich products, include nuts, almond milk, beans, lentils - Vegetables and Fruit: bok-marin, turnips, broccoli, kale, collards, - Dairy products: milk, cheese, yogurt, ice-cream - Fish products: canned salmon, sardines and shrimp - Cereals and nuts: almonds, sesame seeds, fortified cereals and oatmeal - Other foods: fortified orange-juice, figs, soybeans, other beans and eggs. If you have a low calcium diet and cannot tolerate calcium-rich foods, many supplements are available today. Your pharmacist can help you choose the one which best suits your needs. A few tips on supplements: - They should be easy to swallow - They should dissolve easily in cup of vinegar in < 15 minutes. - Count the ELEMENTAL calcium mgs. E.g. Calcium 499mg may have only 221mg of elemental Calcium. - Calcium citrate is the calcium supplement to take if you have had kidney stones and unable to meet your calcium requirements from food/diet alone. - There is such a variety today that it is best to bring in the bottle to your doctor to show them exactly what you are taking. Lastly too much calcium can be bad for you. Recent studies show extra supplements may increase your risk of kidney stones or cause high calcium levels in some people. You should discuss how much you should be taking with your doctor before starting them. Further Information is available from the following resources: www.nof.org (National Osteoporosis Foundation) http://www.osteo.org/osteolinks.asp National Institutes of Health: 9-251-683-BONE The Calcium Information Center: -Non-Dairy, Plant based Milk, can contain in1 glass up to 450 mg of calcium (300 to 450 mg) Exampled include Oat Milk, Flax Milk, [place] Milk, Cashew Milk, Soy Milk, Peas Milk general health and well being Examples of Food Sources of Calcium from [facility] Food Milligrams (mg) per serving Percent DV* Soymilk, calcium-fortified, 8 ounces 299 30 [place] juice, calcium-fortified, 6 ounces 261 26 Tofu, firm, made with calcium sulfate, cup* 253 25 Tofu, soft, made with calcium sulfate, cup* 138 14 Ydwvu-pd-woy cereal, calcium-fortified, 1 cup 100-1,000 10-100 Turnip greens, fresh, boiled, cup 99 10 Kale, raw, chopped, 1 cup 100 10 Kale, fresh, cooked, 1 cup 94 9 Egyptian cabbage, bok marin, raw, shredded, 1 cup 74 7 Bread, white, 1 slice 73 7 Tortilla, corn, vzfbi-mn-zmvy/marshall, one 6 diameter 46 5 Tortilla, flour, lcfkv-rb-simi/marshall, one 6 diameter 32 3 Bread, whole-wheat, 1 slice 30 3 Broccoli, raw, cup 21 2 * DV = Daily Value. DVs were developed by the U.S. Food and Drug Administration to help consumers compare the nutrient contents among products within the context of a total daily diet. The U.S. Department of Agriculture s (USDA s) Nutrient Database Web site lists the nutrient content of many foods and provides comprehensive list of foods containing calcium arranged by nutrient content and by food name. *Calcium content varies slightly by fat content; the more fat, the less calcium the food contains. * Calcium content is for tofu processed with a calcium salt. Tofu processed with other salts does not provide significant amounts of calcium. You could acces this information online at: http://ods.od.nih.gov/factsheets/Calci -HealthProfessional/ Vitamin D: Vitamin D3= cholecalciferol, available over the counter. Dose recommended 800 to 1000 iu daily with a meal; Certain patients require 3355-9576 iu daily and in patients deficient in Vitamin D, they require higher dosages. Certain patient requires higher dose, depending on their Vit D blood levels. Vitamin D is essential for calcium metabolism. It is really a hormone produced mainly in your skin after exposure to sunlight. Vitamin D helps you absorb calcium from your stomach and kidneys and incorporates it into your bones. Studies show approximately 50% of [place] men and women are vitamin D deficient in the winter. Milder cases of vitamin D are usually asymptomatic so the only way to know you have a problem is to have a blood level checked. More severe cases can cause osteomalacia (a.k.a. rickets) which can result in bone pain, weak bones and several abnormal laboratory tests and also weak muscles (a.k.a. myopathy). When this happens, your bones lose a lot of their calcium stores as the body tries to regulate the calcium required by other tissues. Prolonged deficiency can lead to severe bone disorders and fractures. Unlike calcium, dietary sources of vitamin D are rare, limited to a few fish oils particularly cod-liver oil, other fortified foods and egg yolks. and most are unhealthy. Natural source of vitamin D is through sunshine. This is usually during jose seasons, for example a 30 minute exposure to sunshine. Some people are unable to be exposed to the sun due to skin condition. Often supplementation is needed. Many multivitamins contain some vitamin D and vitamin D alone preparations are now available in several forms. The recommended daily intake of vitamin D used to be 400 and 800 international units, however, it is now known that larger amounts are needed, as discussed above. Your doctor can prescribe prescription strength vitamin D for you if necessary, if you have marked deficiency or diseases of the liver or kidney. Supplementation in patients with severe deficiency can stabilize or improve bone mineral density and in frail elderly persons, may reduce their risk of falling. Additional Information is available from: www.nof.org (the national osteoporosis foundation) http://www.[facility].org/arthgabriella is/osteo/info.htm http://ods.od.nih.gov/factsheets/vitam ind.asp National Institutes of Health: 9-861-361-BONE [facility] Calcium Information [place]: At the [facility], we work as a team for your care, along with Nurse Practitioners, Physician Assistants, Nurses and Medical Assistants. It is a privilege and honor to serve you. Thank you for choosing [facility] for your healthcare. Sincerely, Nidia Weston APRN.JOSE documented in this encounter [facility] 05-04-2023 History of Present illness Narrative Follow up telephone visit Telephone visit Jam Toscano is a very nice 58 year old male seen for Rheumatoid Arthritis and Osteoporosis Additional details per last visit note Patient agrees to telephone visit Subjective: Patient reports: First appt did full mouth xray 03/04 Pulled 5 teeth on 03/25 Drilled on filled tooth that was there Goes back fitting denture 09/09 [facility] [phone] GI - colitis 03/23 Had colonoscopy - red and inflamed Checked and did not find any humira in system 03/28 stopped humira On 04/01 wanted change to entyvio-Had 2 so far Tolerating well SSZ 2 tabs 4 times daily Vit d 5000 international unit(s) daily Mesalamine nightly Tumeric daily - started by GI RA is doing well No joint swelling No flares RA Following with ortho for prior knee and hip replacements No falls No interim fractures No new bone pains No serious infections or fevers OP therapy: not on treatment Bone tests were reviewed at this visit Full labs enclosed Review of Systems CONSTITUTION: Negative for: Weight loss or gain, Fever. Chills, Night sweats HEENT: Negative for: Nosebleeds, Mouth sores, Trouble swallowing, Dry mouth RESPIRATORY: Negative for: Cough, Shortness of breath, Pain with breathing, Coughing up blood GASTROINTESTINAL: Positive for: Diarrhea and Abdominal pain Negative for: Melena and Heartburn MUSCULOSKELETAL: Negative for: Arthralgias, Myalgias, Muscle weakness, Joint swelling and Morning Joint Stiffness NEUROLOGICAL: Negative for: Headaches, Numbness, Memory loss, SKIN: Positive for: Hair loss (thinning) Negative for: Rash, Sun Sensitive Rash, Skin changes and Nail changes EYES: Negative for: Eye pain, Eye redness, Visual disturbance, Eye dryness CARDIOVASCULAR: Negative for: Chest pain, Leg swelling, Arrhythmia, Presyncope GENITOURINARY: Negative for: Dysuria, Hematuria and Ulcerations Still has a kidney stone Following with urology- will see someone else if has further issuses HEMATOLOGIC/LYMPHATIC: Negative for: Swollen glands - medical history - medications - allergies - family history - social history - radiology - tests Full details in patient's emr chart Additional pertinent test results reviewed Pertinent imaging scans/films reviewed Physical Exam There were no vitals taken for this visit. BP 124/89 pulse 79 patient reported Weight 179lbs Telephone call ASSESSMENT: M05.79 Rheumatoid arthritis 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) (primary encounter diagnosis) Z71.2 Encounter to discuss test results Z71.89 Counseling on health promotion and disease prevention K51.00 Ulcerative pancolitis (HCC) E55.9 Vitamin D deficiency Z79.899 On sulfasalazine therapy Z71.89 Encounter for medication review and counseling M81.8 Other osteoporosis without current pathological fracture R76.8 Elevated serum immunoglobulin free light chain level Per Dr. Dubon last note -Chronic, severe long standing Rheumatoid Arthritis, deforming, erosive, nodular, prior to following with us Sero-positive s/p multiple joint surgeries Has multiple chronic joint deformities He has had very good response to Enbrel with remission due to med. And since switched to Humira, reports continued response. -At today's visit, the patient's Rheumatoid Arthritis does not appear to be active and has been in remission with anti-TNF therapy. Anti- TNF therapy is indicated and medically necessary for maintenance of remission in patient's severe chronic Rheumatoid Arthritis. His certified meeting professional has switched him to Humira as he feels patient would have better response to his IBD and is prescribing sulfasalazine and mesalamine (endema). -Vitamin D deficiency- corrected He is on supplements, requires monitoring due to risk of recurrent deficiencies. He reports taking 5000 international units daily with a meal, maintenance Will update labs -Osteoporosis DXA August 19, 2018 Lowest T-score -2.5 (left fem neck) No history of frag/ fractures Not currently on steroids, has had in past His OP evaluation, was normal for testost, NTX, celiac, homoc, magn, serum monocl, iPTH, calcium, vitamin D. His phos was low and improved with increased dietary phos. His urine monoclonal revealed M protein and we have referred him to Hematology Oncology -DXA August 22, 2020, lowest T-score -2.7 (left fem neck) Left total neck T-score -2.6 Spine T-score -1.7, stable BMD, but is unreliable due to degen. disease Bone loss at the fem neck by 6.3% I reviewed concerns for bone loss Advised on caution with steroid use and to explain to his other providers that he has Osteoporosis and bone loss, avoiding steroids when possible. I reviewed risk of bone loss and fracture and discussed guidelines and recommendations for therapy. I reviewed Reclast infusion and patient wishes to proceed. Will obtain insurance precert. Due to his gastrointestinal disease, IBD, oral bisphosphonates are contraindicated. With M protein, Forte and Tymlos need to be deferred Prolia is another option. Evenity has not been yet approved in men. I reviewed IV Reclast infusion at multiple visits. I advised him that he needs to have his dental work completed first and reviewed risk of ONJ. He has not been able to completed in 2019 or since and is looking into dental insurance. He will let us know when his dental work is completed. He is aware that dental work needs to be completed before Reclast and was advised to f/u with his dentist and relayed that he plans to. I reviewed importance of f/u with dentist and explained also that this is delaying his Osteoporosis therapy. Patient will contact me after he has completed his dental work. -DXA September 23, 2022, lowest T-score -2.5 (left fem neck) Stable BMD, no bone loss compared to 2019. He remains at risk for fracture and further bone loss, colton with his active IBD and intermittent steroid therapy from his certified meeting professional. Pharmacologic therapy is still indicated and recommended, however, are still awaiting completion of dental work. -I have referred him to Hematology Oncology for urine M protein (checked twice) and has labs ordered by them. Has not had f/u for 2 yrs. Will update labs and if abnormal will refer again. Recheck were normal Rheumatoid arthritis No joint swelling, no RA flares, no joint pain GI UC on entyvio now, SSZ 8 tabs daily. Off humira. Per GI. Will monitor RA Osteoporosis Not currently on treatment, vit d 5000 international unit(s) daily . Last vit d normal. Complete dental procedures. Will need dental clearance No falls, no fractures, no new bone pains, no procedures planned, no s/s of infections and no antibiotics. Recheck labs in 2 months Reclast if labs normal and dental clearance I reviewed risk for future fragility fractures and bone loss. Reviewed indication and guideline recommendations for pharmacologic therapy Reviewed healthy lifestyle and role of diet and exercise and stress on Osteoporosis and bone loss. I have discussed FDA approved medications Written information provided to patient on OP, Ca/D, BMD, ONJ, Bone health and recommendations, OP medications. Also provided information on web for additional information if necessary, CC, NOF and ISCD and [facility]. PLAN: [facility] on 05/04/23 VITAMIN D 25 HYDROXY RENAL FUNCTION PANEL MONOCLONAL PROT UR W/INTERP Labs prior to next visit Reclast - You are on entyvio and sulfasalazine for your Ulcerative Colitis. These are also treating your Rheumatoid Arthritis. 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 Supplements recommended Vitamin B12: 500 to 1000 mcg once daily Vitamin D: 5000 international units once daily with meals multivitamin OP med: june Risks, benefits, alternatives, reported side effects, indication, limitations/expectation of medication(s) were discussed with patient and patient wished to proceed. Written information provided for patient review. Review of Osteoporosis medications Medications that prevent bone loss and Osteoporosis fractures: -Oral bisphosphonates (such as Actonel, Boniva, Fosamax/alendronate), these are taken either once a week or once a month (depending on med chosen), first thing in the morning, with special instructions to follow. The duration would be limited to 5 yrs, to prevent increased risk for atypical fracture of femur -IV Reclast, is 5 mg intravenous infusion given once a year for Osteoporosis and once every two years for Osteopenia. This is a 15 to 20 minute infusion given at our infusion center. For that infusion, it would be important to have completed any necessary dental work and continue following with your dentist every 6 months and the recommended lab work we ordered. You would need to be well hydrated to insure good kidney function. Please insure adequate hydration with water, about 6 to 8 cups of water, the day before, the day of the infusion and the day after. Please avoid dehydration in general. Some people experience flu like symptoms and low grade fever, after the infusion. This is usually self limited and will resolve. The recommended treatment for symptom relief is taking acetaminophen/Tylenol two extra strength tablets (500mg each) every 6 hours until this has resolved, usually does not last more than 3 days. IV Reclast once a year is usually limited to no more than 3 yrs, to prevent increased risk for atypical fracture of femur. -Subcutaneous Prolia: this is one injection every 6 months, given by the nurse in the office. This medication is given detention, indefinitely. Prolia should not be discontinued without proven back up therapy, due to incr risk of vert fractures after withdrawing Prolia. Discussed recent research findings and recommendations that Prolia if started and continued past 1 to 2 yrs, may need to be indefinitely, for now, until new studies show effective transition therapy. Advised that Prolia should not be discontinued due to reported increased risk of bone loss and vertebral fractures after withdrawing Prolia. Multiple studies have looked into transition therapy. Recent study from [facility] Slim et al, 04/11/2020, reported one infusion of IV Reclast did not prevent bone loss after Prolia was discontinued. At this time, would need to await additional studies on what is the best approach and strategy, for if and when, Prolia is no longer necessary. For patients who have been on Prolia past 2 yrs, bone loss still occurred despite an infusion with zoledronic acid following discontinuation of Prolia. Some patients required another infusion of zoledronic acid after 6 months from their first one. In some patients Prolia would need to be continued indefinitely. The 10 year data on Prolia are reassuring in terms of safety and efficacy. Reviewed importance of regular dental care, follow up with dentist and good oral hygiene We also reviewed risk of reported ONJ (osteonecrosis of the jaw) and atypical fracture of femur. Discussed infection precautions. Indication for lab work prior to Prolia injections and importance of continued follow up. Risks, benefits, alternatives, reported side effects, indication, limitations/expectation of medication(s) were discussed with patient. Written information provided for patient review. Medications that build bone density and prevent osteoporosis fractures: -Subcutaneous Forteo or Tymlos, once daily injections at home: these are for 2 yrs and then will need to transition to anti-resorptive therapy, such as a bisphosphonate or Prolia after that, based on guidelines. Medication that both prevents bone loss and builds bone density and prevents Osteoporosis fractures: -Subcutaneous Evenity (romosozumab, an anti-sclerostin monoclonal antibody). This is a monthly subcutaneous injection (2 injections every visit, by the nurse). This is given for 1 year and if further treatment is required after that, we would transition to Prolia or a bisphosphonate. It has listed CV risk and warning that it should not be initiated in patients who have had an AK or stroke in the preceding year. This is only prescribed for 1 year and if treatment for Osteoporosis is still warranted, would need to switch to anti-resorptive therapy, according to recommendations. Other less potent Osteoporosis medications, such as evista and miacalcin have not been proven to prevent non-vertebral fractures Reviewed importance of regular dental care, follow up with dentist and good oral hygiene We also reviewed risk of ONJ and atypical fracture of femur Risks, benefits, alternatives, reported side effects, indication, limitations/expectation of medication(s) were discussed with patient. Written information provided for patient review. The nature of osteopenia and osteoporosis and bone thinning, as well as bone loss, was discussed with the patient as well as risk factors for osteoporosis and bone loss, as well as risk factors for fragility fractures from osteoporosis and reported associated risk of morbidity and mortality. I also informed patient that osteoporosis is a silent disease, it is asymptomatic and does not lead to pains. Patients with new bone pains require evaluation for fractures. Patients with chronic pains should not be assumed that is from osteoporosis. I also reviewed with patient risk of fragility fracture from osteoporosis and indication and recommendations by the National Osteoporosis Foundation for pharmacologic therapy and standard of care to decrease risk of OP fractures and bone loss. I reviewed indication for therapy with FDA approved osteoporosis medications with the patient and based on current guidelines and recommendations. I reviewed risk of atypical fracture of femur and ONJ with anti-resorptive therapy. With reports and concern regarding atypical and subtroch. 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 We also follow bone markers and monitor for evidence of oversuppression with anti-resorptive agents. I offered additional time to address all patient's questions and answer all OP questions. I have provided education on wellness and healthy lifestyle. Additional information provided with references and educational information. Bone health recommendations provided Bone Health Recommendations: -Vitamin D supplementation recommended, optimal dose is the dose necessary to achieve Vitamin D 25-OH blood level in range of 40-60 ng/mL. (Vitamin D supplement in international units, is the dose necessary to achieve a Vitamin D 25-OH blood level in range of 40-60 ng/mL). -Recommended daily dose of calcium: 1200mg total a day in divided doses. Calcium from dietary sources, if not sufficient, or if with h/o calcium nephrolithiasis would recommend Calcium Citrate supplement, as it is recommended to avoid caclium carbonate products, which as main dietary calcium source. The after visit summary has information on dietary calcium and instructions on reading calcium label and converting the %DV to mg. -Regular weight-bearing and muscle-strengthening exercise -Avoidance of tobacco smoking, excessive alcohol intake and excessive caffeine intake. -Fall and fracture precautions -Continued regular dental follow up visits and good dental/gum care FU visit: 2 months RA/ OP meds I spent a total of 15 minutes on the date of the service which included telephone The patient follows with their Primary care physician for their other health management Recommendations to share with Primary care physician: Dear Dr. Lackey: I had the pleasure of seeing your patient, Jam Toscano. I have enclosed a copy of my clinic note with my assessment and recommendations for this patient. -Continuous follow up with Primary care physician for cardiovascular disease prevention, for age appropriate cancer screening and routine health maintenance and wellness, and infection precautions and age appropriate immunization recommended. Thank you for allowing me to participate in the care of your patient. Nidia Weston APRN.[facility] cc Jose L Lackey MD, MD Patient Instructions -PLEASE NOTE THAT WE REVIEW ALL YOUR TEST RESULTS AT YOUR NEXT FOLLOW UP VISIT WITH YOU. IF ANY ABNORMAL LAB REQUIRES SOONER ATTENTION, WE WILL CONTACT YOU. -If you have signed up on Datalot, we will release your test results through Datalot. I wish you the best of health and wellness. Please take care and stay safe and healthy. Consume a healthy diet, stay well hydrated, sleep well, be happy, improve stress (include meditation), exercise regularly. Spend some time in nature, around trees and osborn (forest bathing) and enjoy half an hour daily in the sun when possible (and benefit from its natural near infrared light, also your skin will be able to produce natural vitamin D). These have been shown to help with wellbeing, promoting a healthy immune system and healing. Instructions and Recommendations: Please follow up with your dentist as discussed and once you have completed dental work, please contact me so we can discuss Osteoporosis medication. You are on entyvio and sulfasalazine for your Ulcerative Colitis. These are also treating your Rheumatoid Arthritis. 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 Supplements recommended Vitamin B12: 500 to 1000 mcg once daily Vitamin D: 5000 international units once daily with meals multivitamin - Maintaining good vitamin D blood levels is important for bone health and overall health. Please see additional information on vitamin D below. A vitamin D blood test, called vitamin D 25-hydroxy (OH) is obtained to assess vitamin D level. If the vitamin D is low, you will need to take a vitamin D supplement. If you are already on a vitamin D supplement, then the dose will need to be adjusted. Also you multivitamin may contain vitamin D. Vitamin D is a fat soluble vitamin that requires it be taken with good fat to be absorbed. Examples of healthy fat include nuts, seeds, avocados, olives and for the most part the meal of the day. Spending up to 30 minutes in the sun during Summer and late Spring can provide natural vitamin D to the uncovered skin (arms, legs) - Your calcium can be sufficient in your diet. Healthy food that are rich in calcium include: nuts, seeds, legumes/beans, peas, dark green leafy vegetables, plant based milk Additional calcium rich foods listed below - Soaking Almonds overnight in the fridge with drinking water, can help with softening the almonds and improved absorption of the almonds. Please be careful not to break a tooth with dry raw almonds, or other hard nuts or seeds. If your lab work shows insufficient calcium or you are unable to consume sufficient foods rich in calcium, then a calcium supplement is recommended, such as calcium citrate. - You can track your nutrition and calcium intake on www.[employer].XING This provides macro and micronutrient intake and requirements. - You can track your calcium intake on [employer].XING or any other calcium tracker of your choice. If you are not getting about 1200 mg of calcium daily, you will need to add a calcium supplement, such as calcium citrate to supplement you daily calcium so you can achieve your total 1200 mg daily See additional information below on calcium. Please continue following with your dentist every 6 months If you are on Osteoporosis medication, please inform your dentist as invasive dental work with these medications can increase one's risk for ONJ (osteonecrosis of the jaw). Please continue with good oral hygiene and dental care - Please do your best follow, as close as you can, a Whole Food Plant Based diet lifestyle. It is important to avoid unhealthy foods and increase healthy and disease fighting foods. -Review the information provided below. -Start by avoiding all dairy. You can use non-dairy plant based alternatives -Decrease the amount of meat and animal product you consume. For your Ulcerative Colitis it is best to avoid all animal protein. If you need to consume a burger, you can chose a plant based burger. -Avoid fried food and cooking with oil, butter, ghee or fat, as much as possible. You can stir marshall your vegetables with vegetable broth or water. You can use an air fryer for crisping vegetables. Consider broiling, roasting your vegetables or steaming them. -Avoid consuming a lot of over processed foods and ones that contain artifical additives. -Learn 5 recipes that are plant based that you can cook comfortably and that you really like. Then cook at least one of these recipes every week. If you are unable to cook and prefer to have food prepared or delivered to you, you can order healthy plant based food at multiple sites available now for a cost, such as at www.Deskom. -When eating a whole food plant based diet, remember to eat well and sufficiently, as plant foods are naturally lower in calories. Make your plate contain starchy food, whole grains, non-starchy vegetables (such as green) and legumes/beans/tofu/tempeh. You can use tofu, soy curls, tempeh, mushrooms, lentils, beans, walnuts as meat substitutes in cooking. You can consume raw unsalted nuts and seeds as snacks or in your salads. Consume fruits during the day. The vegetables can purchased be fresh or frozen. -Remember to hydrate well with water. - I recommend following a healthy lifestyle. You can find additional information below. I recommend this to all my patients, as I have seen convincing scientific evidence, and seen the results in my practice, of the benefits of this healthy lifestyle to overall health and wellness. I hope you will find this beneficial as well. A whole plant based diet and healthy lifestyle have been reported to be optimal for health in general, anti-inflammatory diet, prevention of common chronic diseases, healthy weight management, memory and brain healthy, bone health. - You can track your nutrition and calcium intake on www.[employer].XING This provides macro and micronutrient intake and requirements. Recommendations for healthy lifestyle include: Healthy nutritious diet, anti-inflammatory diet, appropriate exercise, good sleep hygiene, stress management, supplementing vital deficiencies and maintaining healthy weight. with BMI that does not exceed 25 to 26 . 5 points to remember to improve your health and continue on a healthy path: 1- Optimal nutritious food, such as a Whole Plant Based diet You can watch the documentary movie that features the Whole Plant Based diet, [place] over knives (see video online and visit website). Another movie that was recently released is: Eating You Alive (you can find it at SlideRocket) and The Bitrockr Changers movie Dr. Fauzia Ansari is a [facility] physician who is an expert in Whole Plant based diet. His website is [employer]. His research highlights the benefits of the Whole food plant based diet in reversing and preventing heart disease. Mrs. Ansari (his ) has a cookbook with many recipes on whole plant based food: The Prevent and Reverse Heart Disease cookbook. You can also consider reading his son, Eze Ansari's book: The Engine 2 cookbook Eze is a retired tree shear operator who has helped many people get healthier by following the whole food plant based diet. Dr. Rock Velazco, has a website and free claudia to help get started on a whole plant based diet, at www.pcrm.org and you can log on for free for his 21-Day Kickstart with meals and recipes to follow for 21 days. There is also a free claudia for that. He has multiple free videos and YouTube, for example: https://youtu.be/qbnLqqqF6e9 , https://youtu.be/WxIIXkolv6r He has written multiple books, including Power Food for the Brain, The Cheese Trap, Dr. Rock Velazco's Program for Reversing Diabetes, Your Body in Balance Dr. Anthony Carlson has shown the benefit of a starch based whole food plant based diet to his Rheumatoid Arthritis patients, as well as patient with diabetes II, hypertension, obesity, multiple sclerosis, heart disease, acne, and other, his website: www.magnoliaHarvard [email or web address].XING Dr. Yayo Allred is a renowned non destructive testing scientist, who has studied and researched the benefits of the Whole plant based diet. He has also researched the adverse effects of animal proteins on health. He presents many of his research findings in his book The [place] study. Dr. Gerber Becker has completed many research trials proving the reversal of diseases, such as heart disease and early prostate cancer, with healthy lifestyle and the Whole Plant based diet. Dr. Gerber Becker website is: www.carmenKicknote.[email or web address].XING His new book: Undo It, has evidence based information and guide to following this healthy lifestyle. Dr. Cody Dillon has dedicated a website and additional time to reviewing all food related articles and research and presents them in his power point presentation and on his website at: nutritionfacts.org which is all free. Dr. Dillon has multiple free videos and YouTube, for example https://enercast.Adept Cloud/aSgNkhgVtks and [email or web address]://enercast.Adept Cloud/lXXXygDRyBU. He has written multiple books including: How Not To and How Not To Diet He is now working on his next book: How Not To Age Dr. Danitza Dash (from the [facility]), has articles on the following website: [employer].XING Also, you could find additional information on practical to follow recipes by reading or watching online and YouTube such as: Fur Blower AJ, Cooking With Plants, The Vegan Corner (recipes from an Chinese Fur Blower), The Whole Foods Plant Based Cooking Show and visiting the provided websites for additional information on the whole plant based benefit and cooking recipes. You can also consider watching the vlogs of some of the plant based Athletes such as Fausto Ewing Derek on PlumTV. Dr. Maryan Holguin (a psychiatrist who suffered with lupus) has helped reverse her Systemic Lupus Erythematosus and helps many patients with their auto-immune diseases, based on her recommendations of the whole food plant based diet and the green smoothies. She has a facebook and website, and on youtube her channel is: Goodbye Lupus Some people have adverse effect or intolerance to gluten. Certain patients with auto-immune disease, including auto-immune thyroid disease, need to avoid gluten. If you suspect you are gluten sensitive or intolerant, consider gluten free diet. Gluten could lead to increased inflammation in the bowels and body in certain patients. Not all your food has to be organ if you cannot afford or find them. Consider organic and non-GMO products when shopping for your food, when possible. GMO are genetically modified food that may have adverse impact on our health. If you are unable to purchase organic of non-GMO, you can wash your produce with white vinegar or soak in baking soda and water (see details from Dr. Yañez's website nutritionfacts.org) and rinse well with water. 2- Regular Exercise, such as beginner yoga, tommie chi, stretching, cardio, gradual strengthening, pool therapy, physical therapy Come As You Are: YOGA - Gentle Yoga Anyone Can Do Anywhere www.Pager/yoga Also on youtube: yoga with Karlie 3- Good Sleep (poor sleep impacts everything, recommended sleep is 7.5 to 8 hrs. a night). Certain people need less or more sleep. Meditation and relaxation techniques have shown to help with improving sleep. 4- Stress management, staying positive, be happy, laugh often (it is a great medicine) Find time to relax and meditate if possible. Following steps 1-3 will help with this as well. In psychiatric disorders, it is important to follow with a professional on the optimal management of depression, anxiety or psychiatric illness 5- Supplements Supplementing necessary vitamins and minerals, correcting any deficiencies, i.e. Vitamin D, B12, omega-3 fatty acids etc... Go natural when possible -Important notice: If you are following a Whole plant based diet, it is recommended to take Vitamin B12, sublingual, dissolve under the tongue, take once daily. Vitamin B12 is available over the counter, dose could be 2500 mcg, and can be taken once a week, and if your blood levels are low, you may need to take it once daily or a higher dose. Raw: Garlic, Cilantro, Pilot nuts, Pumpkin seeds, [place] seeds and Flax seed powder have been reported to help with certain metal detoxification such as mercury. [place]-3 plant based rich foods are good anti-inflammatory sources such as : david seeds, flax seed (needs to be ground), walnuts, hemp seeds, dark green leafy vegetables. It is important to avoid refined oils as much as possible especially that many have too much omega-6 that is pro-inflammatory (lead to inflammation as well as concern for heart and vascular disease). Turmeric can be found natural, used as the spice powder or the root with your food. This is also available as a capsule. If you are on a blood thinner, you will need to discuss with your pharmacist or physician before taking Turmeric If you have gall bladder disease or gall bladder stones, it is recommended to avoid turmeric capsules. Sweet cherries (raw cleaned or frozen), Turmeric , pineapple (contains bromelain), omega-rich foods, have anti-inflammatory benefit Start reviewing the Whole Plant Based Diet, by watching [place] over [employer] movie and then review website. There are many other resources and educational information on the Whole plant based diet on the Internet and documentaries. There are other resources for wellness that you can also benefit from, such as the [facility] website, [facility] and includes Plant based and Mediterranean diet, yoga and meditation. Please avoid all dairy products. You could use non-dairy milk such as Flax milk, Cashew milk, [place] milk, Rice milk, Oat milk or Hemp milk, instead. It is very important to avoid all: refined sugars (including high fructose syrup), refined carbohydrates, any artificial sweeteners and artificial preservatives, and soda and heavily processed food. Insure adequate hydration; drink at least 6 to 8 cups of water daily, certain people need less or more. Examples of Smoothies: Every morning you can start your day with a healthy natural anti-inflammatory smoothie, for example, you can blend: fresh or frozen sweet cherries, half a root of turmeric (1 to 2 inches), banana, blue berries, walnuts, few leaves of kale, add flax milk (or almond milk), and enjoy. You could add half an avocado if you like it smoother. If you do not tolerate walnuts, you can use flax seeds, david seeds or hemp seeds instead. If you do not like plant based milk, you can use coconut water or plain water instead. Other smoothies, including green smoothies, are also very healthy and highly anti-inflammatory. For example fruits (such as banana or frozen raul or pineapple) and add significant amount of leafy greens, then add water or coconut water and blend until smooth. You can also add turmeric in this recipe. GENERAL INFORMATION ON BONE HEALTH : -Bone Density testing (DXA scan) as recommended. -Vitamin D supplementation is recommended, unless blood levels are sufficient. Recommended daily dose of 1000 to 2000 IU total a day, or the dose necessary to achieve a Vitamin D 25-OH blood level of >31 and preferably closer to 40-60 ng/mL. Vitamin D pills are available over the counter. -Recommended daily dose of calcium: 1200mg total a day in divided doses. Calcium is usually sufficient in our regular diet, also available in multivitamins. Patients on certain dietary restrictions or those unable to meet their daily calcium by diety alone, may require calcium supplements. For patient with history of calcium kidney stones, Calcium Citrate would be the recommended supplement. It is recommended to avoid caclium carbonate supplement in this case, as these may increase risk of calcium kidney stones. The after visit summary has information on dietary calcium and instructions on reading calcium label and converting the %DV to mg. When you read a food label and you see calcium reported as DV %, add a zero and this will provide you with the approximate mg value of the calcium content in this food. For example, if a glass of almond milk is labeled as 40% calcium DV, then this contains 400 mg of calcium. For additional information, please see references provided. -Regular weight-bearing and muscle-strengthening exercise -Avoidance of tobacco smoking, excessive alcohol intake and excessive caffeine intake. -Fall and fracture precautions -It is recommend to continue regular follow up visits with your dentist every 6 months, and continue with good oral hygiene. Calcium: If your diet is sufficient in Calcium rich food, you will not need calcium supplement. Calcium Citrate is the preferred calcium if you have had kidney stones. Daily recommended calcium dose: 600mg twice a day with meals. Adequate calcium ingestion is essential for maintaining healthy bones. The recommended dose daily intake of calcium varies depending on individual needs but is usually between 1200 and 1500mg daily, preferably around 1200mg a day in divided dose (not all taken at once). This is equivalent to about five 8oz glasses of milk per day. Many foods are rich in calcium and they include: - Plant based, non-dairy, calcium rich products, include nuts, almond milk, beans, lentils - Vegetables and Fruit: bok-marin, turnips, broccoli, kale, collards, - Dairy products: milk, cheese, yogurt, ice-cream - Fish products: canned salmon, sardines and shrimp - Cereals and nuts: almonds, sesame seeds, fortified cereals and oatmeal - Other foods: fortified orange-juice, figs, soybeans, other beans and eggs. If you have a low calcium diet and cannot tolerate calcium-rich foods, many supplements are available today. Your pharmacist can help you choose the one which best suits your needs. A few tips on supplements: - They should be easy to swallow - They should dissolve easily in cup of vinegar in < 15 minutes. - Count the ELEMENTAL calcium mgs. E.g. Calcium 499mg may have only 221mg of elemental Calcium. - Calcium citrate is the calcium supplement to take if you have had kidney stones and unable to meet your calcium requirements from food/diet alone. - There is such a variety today that it is best to bring in the bottle to your doctor to show them exactly what you are taking. Lastly too much calcium can be bad for you. Recent studies show extra supplements may increase your risk of kidney stones or cause high calcium levels in some people. You should discuss how much you should be taking with your doctor before starting them. Further Information is available from the following resources: www.nof.org (National Osteoporosis Foundation) http://www.osteo.org/osteolinks.asp National Institutes of Health: 6-331-457-BONE The Calcium Information [place]: -Non-Dairy, Plant based Milk, can contain in1 glass up to 450 mg of calcium (300 to 450 mg) Exampled include Oat Milk, Flax Milk, [place] Milk, Cashew Milk, Soy Milk, Peas Milk general health and well being Examples of Food Sources of Calcium from NIH Food Milligrams (mg) per serving Percent DV* Soymilk, calcium-fortified, 8 ounces 299 30 [place] juice, calcium-fortified, 6 ounces 261 26 Tofu, firm, made with calcium sulfate, cup* 253 25 Tofu, soft, made with calcium sulfate, cup* 138 14 Qtvsj-ql-kvl cereal, calcium-fortified, 1 cup 100-1,000 10-100 Turnip greens, fresh, boiled, cup 99 10 Kale, raw, chopped, 1 cup 100 10 Kale, fresh, cooked, 1 cup 94 9 Egyptian cabbage, bok marin, raw, shredded, 1 cup 74 7 Bread, white, 1 slice 73 7 Tortilla, corn, kdsgq-dl-sqjd/marshall, one 6 diameter 46 5 Tortilla, flour, rcafg-ua-sikf/marshall, one 6 diameter 32 3 Bread, whole-wheat, 1 slice 30 3 Broccoli, raw, cup 21 2 * DV = Daily Value. DVs were developed by the U.S. Food and Drug Administration to help consumers compare the nutrient contents among products within the context of a total daily diet. The U.S. Department of Agriculture s (USDA s) Nutrient Database Web site lists the nutrient content of many foods and provides comprehensive list of foods containing calcium arranged by nutrient content and by food name. *Calcium content varies slightly by fat content; the more fat, the less calcium the food contains. * Calcium content is for tofu processed with a calcium salt. Tofu processed with other salts does not provide significant amounts of calcium. You could acces this information online at: http://ods.od.nih.gov/factsheets/Calci -HealthProfessional/ Vitamin D: Vitamin D3= cholecalciferol, available over the counter. Dose recommended 800 to 1000 iu daily with a meal; Certain patients require 6385-8271 iu daily and in patients deficient in Vitamin D, they require higher dosages. Certain patient requires higher dose, depending on their Vit D blood levels. Vitamin D is essential for calcium metabolism. It is really a hormone produced mainly in your skin after exposure to sunlight. Vitamin D helps you absorb calcium from your stomach and kidneys and incorporates it into your bones. Studies show approximately 50% of [place] men and women are vitamin D deficient in the winter. Milder cases of vitamin D are usually asymptomatic so the only way to know you have a problem is to have a blood level checked. More severe cases can cause osteomalacia (a.k.a. rickets) which can result in bone pain, weak bones and several abnormal laboratory tests and also weak muscles (a.k.a. myopathy). When this happens, your bones lose a lot of their calcium stores as the body tries to regulate the calcium required by other tissues. Prolonged deficiency can lead to severe bone disorders and fractures. Unlike calcium, dietary sources of vitamin D are rare, limited to a few fish oils particularly cod-liver oil, other fortified foods and egg yolks. and most are unhealthy. Natural source of vitamin D is through sunshine. This is usually during jose seasons, for example a 30 minute exposure to sunshine. Some people are unable to be exposed to the sun due to skin condition. Often supplementation is needed. Many multivitamins contain some vitamin D and vitamin D alone preparations are now available in several forms. The recommended daily intake of vitamin D used to be 400 and 800 international units, however, it is now known that larger amounts are needed, as discussed above. Your doctor can prescribe prescription strength vitamin D for you if necessary, if you have marked deficiency or diseases of the liver or kidney. Supplementation in patients with severe deficiency can stabilize or improve bone mineral density and in frail elderly persons, may reduce their risk of falling. Additional Information is available from: www.nof.org (the national osteoporosis foundation) http://www.[facility].org/leesa is/osteo/info.htm http://ods.od.nih.gov/factsheets/vitam ind.asp [place] Institutes of Health: 1-333-868-BONE [facility] Calcium Information [place]: At [facility], we work as a team for your care, along with Nurse Practitioners, Physician Assistants, Nurses and Medical Assistants. It is a privilege and honor to serve you. Thank you for choosing [facility] for your healthcare. Sincerely, Nidia Weston APRN.MANAGER COLLECTION PAST MEDICAL HISTORY Diagnosis Date Monoclonal gammopathy History reviewed. No pertinent surgical history. Social History Tobacco Use Smoking status: Former Smokeless tobacco: Never Tobacco comments: quit in 2011 Vaping Use Vaping Use: Never used Substance Use Topics Alcohol use: Never Drug use: Never History reviewed. No pertinent family history. ALLERGIES No Known Allergies Current Outpatient Medications Medication Sig Azelastine HCl (OPTIVAR) 0.05 % ophthalmic solution INSTILL 1 DROP INTO EYE ONCE DAILY mesalamine (ROWASA) 4 gram/60 mL enema USE 1 ENEMA RECTALLY EVERY DAY AT BEDTIME folic acid 1 mg tablet Take 1 mg by mouth once daily. CETIRIZINE HCL (ZYRTEC ORAL) Take by mouth. Cholecalciferol, Vitamin D3, 5,000 unit cap Take 5,000 Units by mouth once daily. patient taking once daily with food ezetimibe (ZETIA) 10 mg tablet Take 10 mg by mouth once daily. atorvastatin (LIPITOR) 20 mg tablet Take 20 mg by mouth once daily. lisinopril (ZESTRIL, PRINIVIL) 20 mg tablet Take 20 mg by mouth once daily. Omeprazole 40 mg capsule Take 40 mg by mouth once daily. CHEWABLE MULTI VITAMIN ORAL Take by mouth. SULFASALAZINE ORAL Take by mouth. takes 8 pills a days, divided three times daily (3 in am, 3 noon, 2 pm), per certified meeting professional No current facility-administered medications for this visit. RELEVANT PREVIOUS INVESTIGATIONS: Calcium Date Value Ref Range Status 08/22/2020 9.4 8.5 - 10.2 mg/dL Final 01/17/2020 9.3 8.5 - 10.2 mg/dL Final 02/10/2019 9.5 8.5 - 10.2 mg/dL Final 08/19/2018 10.1 8.5 - 10.2 mg/dL Final Phosphorus Date Value Ref Range Status 08/22/2020 2.8 2.7 - 4.8 mg/dL Final 01/17/2020 2.5 (L) 2.7 - 4.8 mg/dL Final 07/12/2019 2.5 (L) 2.7 - 4.8 mg/dL Final 02/10/2019 2.2 (L) 2.7 - 4.8 mg/dL Final Alkaline Phosphatase Date Value Ref Range Status 08/22/2020 135 (H) 38 - 113 U/L Final 02/10/2019 152 (H) 38 - 113 U/L Final 08/13/2017 115 (H) 36 - 108 U/L Final 02/05/2017 134 (H) 36 - 108 U/L Final PTH, Intact Date Value Ref Range Status 01/17/2020 42 15 - 65 pg/mL Final 02/10/2019 57 15 - 65 pg/mL Final 08/19/2018 43 15 - 65 pg/mL Final 08/29/2015 55 15 - 65 pg/mL Final NTX, Serum Date Value Ref Range Status 08/19/2018 16.9 5.4 - 24.2 nM BCE Final TSH Date Value Ref Range Status 08/19/2018 1.930 0.400 - 5.500 uU/mL Final Testosterone Free Date Value Ref Range Status 08/19/2018 83.1 41.7 - 180.2 pg/mL Final Comment: This test was developed and its performance characteristics determined by [facility]'s Rajeev Rouse [facility] [place] [facility] It has not been cleared or approved by the FDA. [facility] is regulated under CLIA as qualified to perform high-complexity testing. This test is used for clinical purposes. It should not be regarded as investigational or for research. Testosterone Date Value Ref Range Status 08/19/2018 387 193 - 824 ng/dL Final Comment: A testosterone level in the 193-320 ng/dL range with associated clinical symptoms is considered low and may indicate hypogonadism (from NEJM 2010 363:123-135). Results >320 ng/dL are considered normal. Vitamin D 25 Hydroxy Date Value Ref Range Status 01/29/2022 43.5 31.0 - 80.0 ng/mL Final Comment: Classification of 25 OH Vitamin D status: Deficiency/Insufficiency: < or = 30 ng/ml. Sufficiency/Optimal Levels: 31-80 ng/mL Toxicity: > 100 ng/mL. Test performed by chemiluminescent immunoassay. 02/20/2021 44.2 31.0 - 80.0 ng/mL Final Comment: Classification of 25 OH Vitamin D status: Insufficiency/Moderate Deficiency: < or = 30 ng/mL Sufficiency/Optimal Levels: 31 to 80 ng/mL Toxicity: > 100 ng/mL Test performed by chemiluminescent immunoassay. 08/22/2020 48.4 31.0 - 80.0 ng/mL Final Comment: Classification of 25 OH Vitamin D status: Insufficiency/Moderate Deficiency: < or = 30 ng/mL Sufficiency/Optimal Levels: 31 to 80 ng/mL Toxicity: > 100 ng/mL Test performed by chemiluminescent immunoassay. 01/17/2020 41.6 31.0 - 80.0 ng/mL Final Comment: Classification of 25 OH Vitamin D status: Insufficiency/Moderate Deficiency: < or = 30 ng/mL Sufficiency/Optimal Levels: 31 to 80 ng/mL Toxicity: > 100 ng/mL Test performed by chemiluminescent immunoassay. Creatinine Date Value Ref Range Status 08/22/2020 0.79 0.73 - 1.22 mg/dL Final 01/17/2020 0.83 0.73 - 1.22 mg/dL Final 02/10/2019 0.86 0.73 - 1.22 mg/dL Final 08/19/2018 0.98 0.73 - 1.22 mg/dL Final Creat Clearance Date Value Ref Range Status 01/26/2020 85 - 125 mL/min Final Unable to calculate creatinine clearance. No serum creatinine available. Protein, Total Date Value Ref Range Status 01/29/2022 7.2 6.3 - 8.0 g/dL Final 08/22/2020 7.1 6.3 - 8.0 g/dL Final 08/22/2020 6.4 6.3 - 8.0 g/dL Final 01/26/2020 6.7 6.0 - 8.4 g/dL Final Albumin Date Value Ref Range Status 08/22/2020 4.4 3.9 - 4.9 g/dL Final 01/17/2020 4.0 3.9 - 4.9 g/dL Final 02/10/2019 4.5 3.9 - 4.9 g/dL Final 08/19/2018 4.4 3.9 - 4.9 g/dL Final Alpha 1 Globulin Date Value Ref Range Status 01/29/2022 0.22 0.18 - 0.31 g/dL Final 08/22/2020 0.22 0.18 - 0.31 gm/dL Final 01/26/2020 0.27 0.18 - 0.31 gm/dL Final Alpha 2 Globulin Date Value Ref Range Status 01/29/2022 0.46 (L) 0.52 - 0.97 g/dL Final 08/22/2020 0.44 (L) 0.52 - 0.97 gm/dL Final 01/26/2020 0.57 0.52 - 0.97 gm/dL Final Beta Globulin Date Value Ref Range Status 01/29/2022 0.87 0.84 - 1.36 g/dL Final 08/22/2020 0.92 0.84 - 1.36 gm/dL Final 01/26/2020 0.98 0.84 - 1.36 gm/dL Final Gamma Globulin Date Value Ref Range Status 01/29/2022 1.45 (H) 0.70 - 1.44 g/dL Final 08/22/2020 1.04 0.70 - 1.44 gm/dL Final 01/26/2020 1.22 0.70 - 1.44 gm/dL Final Interpretation (Prot Electro) Date Value Ref Range Status 01/29/2022 No definitive M protein is identified on protein electrophoresis. Final No definitive M protein is identified on protein electrophoresis. 08/22/2020 SEE COMMENT Final Comment: No definitive M protein is identified on protein electrophoresis. 01/26/2020 SEE COMMENT Final Comment: No definitive M protein is identified on protein electrophoresis. MPA IgA, Serum Date Value Ref Range Status 08/22/2020 213 70 - 400 mg/dL Final 08/19/2018 188 78 - 391 mg/dL Final MPA IgG, Serum Date Value Ref Range Status 08/22/2020 1,098 700 - 1,600 mg/dL Final 08/19/2018 1,270 717 - 1,411 mg/dL Final MPA IgM, Serum Date Value Ref Range Status 08/22/2020 167 40 - 230 mg/dL Final 08/19/2018 147 53 - 334 mg/dL Final MPA [place], Serum Date Value Ref Range Status 08/19/2018 1,020 534 - 1,267 mg/dL Final MPA Lambda, Serum Date Value Ref Range Status 08/19/2018 551 253 - 653 mg/dL Final MPA [place]/Lambda Ratio Date Value Ref Range Status 08/19/2018 1.85 1 - 3 Final IgA Date Value Ref Range Status 01/29/2022 221 70 - 400 mg/dL Final 01/26/2020 202 78 - 391 mg/dL Final 08/19/2018 198 78 - 391 mg/dL Final 08/29/2015 207 78 - 391 mg/dL Final Vitamin D 25 Hydroxy (ng/mL) Date Value 01/29/2022 43.5 02/20/2021 44.2 ] Calcium Date Value Ref Range Status 08/22/2020 9.4 8.5 - 10.2 mg/dL Final Creatinine Date Value Ref Range Status 08/22/2020 0.79 0.73 - 1.22 mg/dL Final 01/17/2020 0.83 0.73 - 1.22 mg/dL Final 02/10/2019 0.86 0.73 - 1.22 mg/dL Final 08/19/2018 0.98 0.73 - 1.22 mg/dL Final Calcium Date Value Ref Range Status 08/22/2020 9.4 8.5 - 10.2 mg/dL Final TSH Date Value Ref Range Status 08/19/2018 1.930 0.400 - 5.500 uU/mL Final Last Bone Density DXA-AXIAL SKELETON Exam End: 09/23/2022 10:03 AM (Final result) Narrative: * * *Final Report* * * DATE OF EXAM: Sep 23 2022 10:03AM LNB [id number] - BD DXA - AXIAL SKELETON / PROCEDURE REASON: multiple diagnoses * * * * Physician Interpretation * * * * EXAMINATION: DXA BONE DENSITOMETRY BD DXA - AXIAL SKELETON PATIENT DEMOGRAPHICS: Age: 57 years, Race: , Gender: Male SCANNER INFORMATION: DXA Model: [employer] W [id number] SITE SCANNED: Lumbar spine and left hip Date Scanned: 09/23/2022 10:03 AM Date of prior scan(s): 08/22/2020, 08/19/2018 CLINICAL HISTORY: DIAGNOSTIC Other osteoporosis without current pathological fracture High risk for hip fracture Bone loss Vitamin D deficiency. RISK FACTORS FOR OSTEOPOROSIS AND ASSOCIATED FRACTURES REPORTED BY THIS PATIENT: Parent with a history of HIP fracture Height loss of 1.5 inches or more Prior smoking history Ulcerative Colitis Vitamin D deficiency History of kidney stones No exercise Rheumatoid arthritis CURRENT THERAPY: Vitamin D and Multivitamin TECHNICAL LIMITATIONS: Degenerative disease of the spine L4 is/are deleted, per ISCD guidelines, because changes at this level may artificially alter the bone density measurement. -These show greater density compared to adjacent levels, greater than 1 SD. X-rays may be necessary to rule out sclerotic bone lesions or compression deformity at this level, clinical correlation recommended. Right hip(s) could not be scanned due to prior surgery RESULTS: Lumbar spine (L1-L3): 0.899 g/cm2, T-score -1.6, Lumbar spine: 2019: 0.861 g/cm2 No statistically significant change Lumbar spine: 2018: 0.845 g/cm2 Left Femoral Neck: 0.589 g/cm2, T-score -2.5, Z-score -1.6 Left Femoral Neck: 2019: 0.568 g/cm2 No statistically significant change Left Femoral Neck: 2017: 0.594 g/cm2 Left Total Hip: 0.671 g/cm2, T-score -2.4, Z-score -2.0 Left Total Hip: 2019: 0.645 g/cm2 No statistically significant change Left Total Hip: 2018: 0.688 g/cm2 CHANGE IS STATISTICALLY SIGNIFICANT IN THE SPINE OR HIP IF GREATER THAN OR EQUAL TO 0.04g/cm2 Impression: IMPRESSION: THE LOWEST T-SCORE IS -2.5 IN THE LEFT HIP 1) DIAGNOSIS (based on BMD alone): OSTEOPOROSIS The lowest T-score is used for diagnosis/impression Z-scores will be reported if <-1.0 or if > or = to+3.0 Note that if the patient's prior bone density test was consistent with osteoporosis, the clinical diagnosis remains Osteoporosis. Note that regardless of bone mineral density measurement, a patient may be clinically diagnosed with osteoporosis if they have had a prior fragility fracture. Caution: Medical conditions other than osteoporosis may cause low bone density, such as osteomalacia or renal osteodystrophy. Clinical correlation is necessary. 2) FRACTURE RISK (based on BMD alone): INCREASED Caution: Fracture risk may be increased independent of BMD in patients with corticosteroid use, age greater than 65 years, or a history of prior fragility fracture. The lowest T-score is used for diagnosis. Z-scores will be reported if <-1.0 or if > or = +3.0 RECOMMENDATIONS: Note that some medical conditions may cause low bone density, such as osteomalacia, vitamin D deficiency, multiple myeloma, renal osteodystrophy, hyperparathyroidism, hypogonadism, certain endocrinologic conditions, inflammatory arthropathies, gastrointestinal diseases and malabsorption, and certain medications such as, but not limited to, systemic steroids, anticonvulsants, clinical correlation is necessary. Evaluation of vitamin D status is recommended All patients should receive the recommended daily allowance of calcium and vitamin D, as recommended by the NOF and clinically indicated. Weight bearing exercises and strength training should be considered. Cessation of smoking and moderation of intake of alcohol, caffeine and carbonated beverages are recommended (for additional information please refer to NOF website at www.nof.org). Evaluation for secondary causes of bone loss is recommended in patients with a Z-score of less than -1.5 (see web-site for more details). Patients who have had a height loss of 1.5 inches or more since their peak height (tallest height), should be considered for evaluation of vertebral compression fractures by x-ray of the thoracic(with swimmers views) and lumbar spine. RECOMMENDATIONS FOR PHARMACOLOGIC THERAPY: National Osteoporosis Foundation (NOF) treatment recommendations (2008) Postmenopausal women and men age 50 and older presenting with the following should be treated: A hip or vertebral (clinical or morphometric) fracture T-score less than or equal to -2.5 at the femoral neck, total hip or spine after appropriate evaluation to exclude secondary causes For patients not on pharmacologic therapy for more than 2 years, the following recommendations may apply: Low bone mass (T-score between -1.0 and -2.5 at the femoral neck, total hip or spine) and 10 year probability of hip fracture greater than or equal to 3% or a 10 year probability of any major osteoporosis-related fracture greater than or equal to 20% based on the U.S.- adapted WHO algorithm for FRAX(TM): www.fili.ac.uk/FRAX/tool.jsp or The WHO Fracture Risk Assessment Tool at www.NOF.org PLEASE NOTE: THE DXA SCANNER USED FOR THIS PATIENT IS LISTED IN THE ABOVE DEMOGRAPHICS. THE TYPE OF SCANNER MUST BE ENTERED IN THE FRAX(TM) CALCULATOR TO CORRECT FOR DXA SCANNER VARIABILITY. PLEASE NOTE FRAX(TM) + Does not apply to premenopausal patients + DOES NOT APPLY TO TREATED OR PREVIOUSLY TREATED PATIENTS within past 2 years, please review updates from website listed above. ALL RECOMMENDATIONS AND CALCULATIONS ARE TO BE CONSIDERED GUIDELINES AND SHOULD NOT REPLACE SOUND CLINICAL JUDGMENT Follow-up in 2 years or as clinically indicated. Patients that are taking corticosteroids, are transplant recipients or have hyperparathyroidism should have annual follow-up. Follow-up scans should always be done on the same machine for accurate comparison. FOR MORE INFORMATION: [facility]: www.ccf.org/arthritis/osteo National Osteoporosis Foundation: www.nof.org International Society of Clinical Densitometry www.iscd.org Poster: [id number] Transcribe Date/Time: Sep 23 2022 10:28A Dictated by : DARRIAN DUBON MD This examination was interpreted and the report reviewed and electronically signed by: DARRIAN DUBON MD on Sep 28 2022 6:46PM EST documented in this encounter [facility] 03-02-2023 Instructions Nidia Weston APRN.MANAGER COLLECTION - 03/02/2023 11:10 AM EDT -PLEASE NOTE THAT WE REVIEW ALL YOUR TEST RESULTS AT YOUR NEXT FOLLOW UP VISIT WITH YOU. IF ANY ABNORMAL LAB REQUIRES SOONER ATTENTION, WE WILL CONTACT YOU. -If you have signed up on [employer], we will release your test results through [employer]. I wish you the best of health and wellness. Please take care and stay safe and healthy. Consume a healthy diet, stay well hydrated, sleep well, be happy, improve stress (include meditation), exercise regularly. Spend some time in nature, around trees and [place] (forest bathing) and enjoy half an hour daily in the sun when possible (and benefit from its natural near infrared light, also your skin will be able to produce natural vitamin D). These have been shown to help with wellbeing, promoting a healthy immune system and healing. Instructions and Recommendations: Please follow up with your dentist as discussed and once you have completed dental work, please contact me so we can discuss Osteoporosis medication. -Please continue on yout Vitamin D 5000 international units once daily with meals and your multivitamin - You are on Humira and sulfasalazine for your Ulcerative Colitis. These are also treating your Rheumatoid Arthritis. 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 Supplements recommended Vitamin B12: 500 to 1000 mcg once daily Vitamin D: 5000 international units once daily with meals - Maintaining good vitamin D blood levels is important for bone health and overall health. Please see additional information on vitamin D below. A vitamin D blood test, called vitamin D 25-hydroxy (OH) is obtained to assess vitamin D level. If the vitamin D is low, you will need to take a vitamin D supplement. If you are already on a vitamin D supplement, then the dose will need to be adjusted. Also you multivitamin may contain vitamin D. Vitamin D is a fat soluble vitamin that requires it be taken with good fat to be absorbed. Examples of healthy fat include nuts, seeds, avocados, olives and for the most part the meal of the day. Spending up to 30 minutes in the sun during Summer and late Spring can provide natural vitamin D to the uncovered skin (arms, legs) - Your calcium can be sufficient in your diet. Healthy food that are rich in calcium include: nuts, seeds, legumes/beans, peas, dark green leafy vegetables, plant based milk Additional calcium rich foods listed below - Soaking Almonds overnight in the fridge with drinking water, can help with softening the almonds and improved absorption of the almonds. Please be careful not to break a tooth with dry raw almonds, or other hard nuts or seeds. If your lab work shows insufficient calcium or you are unable to consume sufficient foods rich in calcium, then a calcium supplement is recommended, such as calcium citrate. - You can track your nutrition and calcium intake on www.[employer] This provides macro and micronutrient intake and requirements. - You can track your calcium intake on [employer] or any other calcium tracker of your choice. If you are not getting about 1200 mg of calcium daily, you will need to add a calcium supplement, such as calcium citrate to supplement you daily calcium so you can achieve your total 1200 mg daily See additional information below on calcium. Please continue following with your dentist every 6 months If you are on Osteoporosis medication, please inform your dentist as invasive dental work with these medications can increase one's risk for ONJ (osteonecrosis of the jaw). Please continue with good oral hygiene and dental care - Please do your best follow, as close as you can, a Whole Food Plant Based diet lifestyle. It is important to avoid unhealthy foods and increase healthy and disease fighting foods. -Review the information provided below. -Start by avoiding all dairy. You can use non-dairy plant based alternatives -Decrease the amount of meat and animal product you consume. For your Ulcerative Colitis it is best to avoid all animal protein. If you need to consume a burger, you can chose a plant based burger. -Avoid fried food and cooking with oil, butter, ghee or fat, as much as possible. You can stir marshall your vegetables with vegetable broth or water. You can use an air fryer for crisping vegetables. Consider broiling, roasting your vegetables or steaming them. -Avoid consuming a lot of over processed foods and ones that contain artifical additives. -Learn 5 recipes that are plant based that you can cook comfortably and that you really like. Then cook at least one of these recipes every week. If you are unable to cook and prefer to have food prepared or delivered to you, you can order healthy plant based food at multiple sites available now for a cost, such as at www.[employer]. -When eating a whole food plant based diet, remember to eat well and sufficiently, as plant foods are naturally lower in calories. Make your plate contain starchy food, whole grains, non-starchy vegetables (such as green) and legumes/beans/tofu/tempeh. You can use tofu, soy curls, tempeh, mushrooms, lentils, beans, walnuts as meat substitutes in cooking. You can consume raw unsalted nuts and seeds as snacks or in your salads. Consume fruits during the day. The vegetables can purchased be fresh or frozen. -Remember to hydrate well with water. - I recommend following a healthy lifestyle. You can find additional information below. I recommend this to all my patients, as I have seen convincing scientific evidence, and seen the results in my practice, of the benefits of this healthy lifestyle to overall health and wellness. I hope you will find this beneficial as well. A whole plant based diet and healthy lifestyle have been reported to be optimal for health in general, anti-inflammatory diet, prevention of common chronic diseases, healthy weight management, memory and brain healthy, bone health. - You can track your nutrition and calcium intake on www.[employer].XING This provides macro and micronutrient intake and requirements. Recommendations for healthy lifestyle include: Healthy nutritious diet, anti-inflammatory diet, appropriate exercise, good sleep hygiene, stress management, supplementing vital deficiencies and maintaining healthy weight. with BMI that does not exceed 25 to 26 . 5 points to remember to improve your health and continue on a healthy path: 1- Optimal nutritious food, such as a Whole Plant Based diet You can watch the documentary movie that features the Whole Plant Based diet, [place] over knives (see video online and visit website). Another movie that was recently released is: Eating You Alive (you can find it at SlideRocket) and The Game Changers movie Dr. Fauzia Ansari is a [facility] physician who is an expert in Whole Plant based diet. His website is [employer]. His research highlights the benefits of the Whole food plant based diet in reversing and preventing heart disease. Mrs. Ansari (his ) has a cookbook with many recipes on whole plant based food: The Prevent and Reverse Heart Disease cookbook. You can also consider reading his son, Eze Ansari's book: The Engine 2 cookbook Eze is a retired tree shear operator who has helped many people get healthier by following the whole food plant based diet. Dr. Rock Velazco, has a website and free claudia to help get started on a whole plant based diet, at www.[employer].org and you can log on for free for his 21-Day Kickstart with meals and recipes to follow for 21 days. There is also a free claudia for that. He has multiple free videos and YouTube, for example: https://youSplurgyu.be/oypNozaG1i6 , https://youtu.be/[email or web address] He has written multiple books, including 5gig for the Brain, The Cheese Trap, Dr. Rock Velazco's Program for Reversing Diabetes, Your Body in Balance Dr. Anthony Carlson has shown the benefit of a starch based whole food plant based diet to his Rheumatoid Arthritis patients, as well as patient with diabetes II, hypertension, obesity, multiple sclerosis, heart disease, acne, and other, his website: www.Ostrovok.XING Dr. Yayo Allred is a renowned non destructive testing scientist, who has studied and researched the benefits of the Whole plant based diet. He has also researched the adverse effects of animal proteins on health. He presents many of his research findings in his book The [place] study. Dr. Gerber Becker has completed many research trials proving the reversal of diseases, such as heart disease and early prostate cancer, with healthy lifestyle and the Whole Plant based diet. Dr. Gerber Becker website is: www.[email or web address] His new book: Undo It, has evidence based information and guide to following this healthy lifestyle. Dr. Cody Dillon has dedicated a website and additional time to reviewing all food related articles and research and presents them in his power point presentation and on his website at: nutritionfacts.org which is all free. Dr. Dillon has multiple free videos and YouTube, for example https://youtu.be/aSgNkhgVtks and https://youtu.be/lXXXygDRyBU. He has written multiple books including: How Not To and How Not To Diet He is now working on his next book: How Not To Age Dr. Danitza Dash (from the [facility]), has articles on the following website: [employer].XING Also, you could find additional information on practical to follow recipes by reading or watching online and YouTube such as: Chef BELLE, Cooking With Plants, The Vegan Corner (recipes from an Chinese Fur Blower), The Whole Foods Plant Based Cooking Show and visiting the provided websites for additional information on the whole plant based benefit and cooking recipes. You can also consider watching the vlogs of some of the plant based Athletes such as Graeme Kamara, Agustin Lundy on PlumTV. Dr. Maryan Holguin (a psychiatrist who suffered with lupus) has helped reverse her Systemic Lupus Erythematosus and helps many patients with their auto-immune diseases, based on her recommendations of the whole food plant based diet and the green smoothies. She has a facebook and website, and on youtube her channel is: Goodbye Lupus Some people have adverse effect or intolerance to gluten. Certain patients with auto-immune disease, including auto-immune thyroid disease, need to avoid gluten. If you suspect you are gluten sensitive or intolerant, consider gluten free diet. Gluten could lead to increased inflammation in the bowels and body in certain patients. Not all your food has to be organ if you cannot afford or find them. Consider organic and non-GMO products when shopping for your food, when possible. GMO are genetically modified food that may have adverse impact on our health. If you are unable to purchase organic of non-GMO, you can wash your produce with white vinegar or soak in baking soda and water (see details from Dr. Yañez's website nutritionfacts.org) and rinse well with water. 2- Regular Exercise, such as beginner yoga, tommie chi, stretching, cardio, gradual strengthening, pool therapy, physical therapy Come As You Are: YOGA - Gentle Yoga Anyone Can Do Anywhere www.[email or web address] [employer]. [employer]).[email or web address]/yoga Also on youtube: yoga with Karlie 3- Good Sleep (poor sleep impacts everything, recommended sleep is 7.5 to 8 hrs. a night). Certain people need less or more sleep. Meditation and relaxation techniques have shown to help with improving sleep. 4- Stress management, staying positive, be happy, laugh often (it is a great medicine) Find time to relax and meditate if possible. Following steps 1-3 will help with this as well. In psychiatric disorders, it is important to follow with a professional on the optimal management of depression, anxiety or psychiatric illness 5- Supplements Supplementing necessary vitamins and minerals, correcting any deficiencies, i.e. Vitamin D, B12, omega-3 fatty acids etc... Go natural when possible -Important notice: If you are following a Whole plant based diet, it is recommended to take Vitamin B12, sublingual, dissolve under the tongue, take once daily. Vitamin B12 is available over the counter, dose could be 2500 mcg, and can be taken once a week, and if your blood levels are low, you may need to take it once daily or a higher dose. Raw: Garlic, Cilantro, Pilot nuts, Pumpkin seeds, [place] seeds and Flax seed powder have been reported to help with certain metal detoxification such as mercury. [place]-3 plant based rich foods are good anti-inflammatory sources such as : david seeds, flax seed (needs to be ground), walnuts, hemp seeds, dark green leafy vegetables. It is important to avoid refined oils as much as possible especially that many have too much omega-6 that is pro-inflammatory (lead to inflammation as well as concern for heart and vascular disease). Turmeric can be found natural, used as the spice powder or the root with your food. This is also available as a capsule. If you are on a blood thinner, you will need to discuss with your pharmacist or physician before taking Turmeric If you have gall bladder disease or gall bladder stones, it is recommended to avoid turmeric capsules. Sweet cherries (raw cleaned or frozen), Turmeric , pineapple (contains bromelain), omega-rich foods, have anti-inflammatory benefit Start reviewing the Whole Plant Based Diet, by watching [place] over [employer] movie and then review website. There are many other resources and educational information on the Whole plant based diet on the Internet and documentaries. There are other resources for wellness that you can also benefit from, such as the [facility] website, [facility]org and includes Plant based and Mediterranean diet, yoga and meditation. Please avoid all dairy products. You could use non-dairy milk such as Flax milk, Cashew milk, [place] milk, Rice milk, Oat milk or Hemp milk, instead. It is very important to avoid all: refined sugars (including high fructose syrup), refined carbohydrates, any artificial sweeteners and artificial preservatives, and soda and heavily processed food. Insure adequate hydration; drink at least 6 to 8 cups of water daily, certain people need less or more. Examples of Smoothies: Every morning you can start your day with a healthy natural anti-inflammatory smoothie, for example, you can blend: fresh or frozen sweet cherries, half a root of turmeric (1 to 2 inches), banana, blue berries, walnuts, few leaves of kale, add flax milk (or almond milk), and enjoy. You could add half an avocado if you like it smoother. If you do not tolerate walnuts, you can use flax seeds, david seeds or hemp seeds instead. If you do not like plant based milk, you can use coconut water or plain water instead. Other smoothies, including green smoothies, are also very healthy and highly anti-inflammatory. For example fruits (such as banana or frozen raul or pineapple) and add significant amount of leafy greens, then add water or coconut water and blend until smooth. You can also add turmeric in this recipe. GENERAL INFORMATION ON BONE HEALTH : -Bone Density testing (DXA scan) as recommended. -Vitamin D supplementation is recommended, unless blood levels are sufficient. Recommended daily dose of 1000 to 2000 IU total a day, or the dose necessary to achieve a Vitamin D 25-OH blood level of >31 and preferably closer to 40-60 ng/mL. Vitamin D pills are available over the counter. -Recommended daily dose of calcium: 1200mg total a day in divided doses. Calcium is usually sufficient in our regular diet, also available in multivitamins. Patients on certain dietary restrictions or those unable to meet their daily calcium by diety alone, may require calcium supplements. For patient with history of calcium kidney stones, Calcium Citrate would be the recommended supplement. It is recommended to avoid caclium carbonate supplement in this case, as these may increase risk of calcium kidney stones. The after visit summary has information on dietary calcium and instructions on reading calcium label and converting the %DV to mg. When you read a food label and you see calcium reported as DV %, add a zero and this will provide you with the approximate mg value of the calcium content in this food. For example, if a glass of almond milk is labeled as 40% calcium DV, then this contains 400 mg of calcium. For additional information, please see references provided. -Regular weight-bearing and muscle-strengthening exercise -Avoidance of tobacco smoking, excessive alcohol intake and excessive caffeine intake. -Fall and fracture precautions -It is recommend to continue regular follow up visits with your dentist every 6 months, and continue with good oral hygiene. Calcium: If your diet is sufficient in Calcium rich food, you will not need calcium supplement. Calcium Citrate is the preferred calcium if you have had kidney stones. Daily recommended calcium dose: 600mg twice a day with meals. Adequate calcium ingestion is essential for maintaining healthy bones. The recommended dose daily intake of calcium varies depending on individual needs but is usually between 1200 and 1500mg daily, preferably around 1200mg a day in divided dose (not all taken at once). This is equivalent to about five 8oz glasses of milk per day. Many foods are rich in calcium and they include: - Plant based, non-dairy, calcium rich products, include nuts, almond milk, beans, lentils - Vegetables and Fruit: bok-marin, turnips, broccoli, kale, collards, - Dairy products: milk, cheese, yogurt, ice-cream - Fish products: canned salmon, sardines and shrimp - Cereals and nuts: almonds, sesame seeds, fortified cereals and oatmeal - Other foods: fortified orange-juice, figs, soybeans, other beans and eggs. If you have a low calcium diet and cannot tolerate calcium-rich foods, many supplements are available today. Your pharmacist can help you choose the one which best suits your needs. A few tips on supplements: - They should be easy to swallow - They should dissolve easily in cup of vinegar in < 15 minutes. - Count the ELEMENTAL calcium mgs. E.g. Calcium 499mg may have only 221mg of elemental Calcium. - Calcium citrate is the calcium supplement to take if you have had kidney stones and unable to meet your calcium requirements from food/diet alone. - There is such a variety today that it is best to bring in the bottle to your doctor to show them exactly what you are taking. Lastly too much calcium can be bad for you. Recent studies show extra supplements may increase your risk of kidney stones or cause high calcium levels in some people. You should discuss how much you should be taking with your doctor before starting them. Further Information is available from the following resources: www.nof.org (National Osteoporosis Foundation) http://www.osteo.org/osteolinks.asp [place] [facility]: 7-048-030-BONE [facility] Calcium Information [place]: -Non-Dairy, Plant based Milk, can contain in1 glass up to 450 mg of calcium (300 to 450 mg) Exampled include Oat Milk, Flax Milk, [place] Milk, Cashew Milk, Soy Milk, Peas Milk general health and well being Examples of Food Sources of Calcium from [facility] Food Milligrams (mg) per serving Percent DV* Soymilk, calcium-fortified, 8 ounces 299 30 [place] juice, calcium-fortified, 6 ounces 261 26 Tofu, firm, made with calcium sulfate, cup* 253 25 Tofu, soft, made with calcium sulfate, cup* 138 14 Vxmgk-ga-nzi cereal, calcium-fortified, 1 cup 100-1,000 10-100 Turnip greens, fresh, boiled, cup 99 10 Kale, raw, chopped, 1 cup 100 10 Kale, fresh, cooked, 1 cup 94 9 Egyptian cabbage, bok marin, raw, shredded, 1 cup 74 7 Bread, white, 1 slice 73 7 Tortilla, corn, emaex-hz-vqez/marshall, one 6 diameter 46 5 Tortilla, flour, xrryy-on-gmoh/marshall, one 6 diameter 32 3 Bread, whole-wheat, 1 slice 30 3 Broccoli, raw, cup 21 2 * DV = Daily Value. DVs were developed by the U.S. Food and Drug Administration to help consumers compare the nutrient contents among products within the context of a total daily diet. The U.S. Department of Agriculture s (USDA s) Nutrient Database Web site lists the nutrient content of many foods and provides comprehensive list of foods containing calcium arranged by nutrient content and by food name. *Calcium content varies slightly by fat content; the more fat, the less calcium the food contains. * Calcium content is for tofu processed with a calcium salt. Tofu processed with other salts does not provide significant amounts of calcium. You could acces this information online at: http://ods.od.nih.gov/factsheets/Calci -[facility]/ Vitamin D: Vitamin D3= cholecalciferol, available over the counter. Dose recommended 800 to 1000 iu daily with a meal; Certain patients require 4497-3831 iu daily and in patients deficient in Vitamin D, they require higher dosages. Certain patient requires higher dose, depending on their Vit D blood levels. Vitamin D is essential for calcium metabolism. It is really a hormone produced mainly in your skin after exposure to sunlight. Vitamin D helps you absorb calcium from your stomach and kidneys and incorporates it into your bones. Studies show approximately 50% of [place] men and women are vitamin D deficient in the winter. Milder cases of vitamin D are usually asymptomatic so the only way to know you have a problem is to have a blood level checked. More severe cases can cause osteomalacia (a.k.a. rickets) which can result in bone pain, weak bones and several abnormal laboratory tests and also weak muscles (a.k.a. myopathy). When this happens, your bones lose a lot of their calcium stores as the body tries to regulate the calcium required by other tissues. Prolonged deficiency can lead to severe bone disorders and fractures. Unlike calcium, dietary sources of vitamin D are rare, limited to a few fish oils particularly cod-liver oil, other fortified foods and egg yolks. and most are unhealthy. Natural source of vitamin D is through sunshine. This is usually during jose seasons, for example a 30 minute exposure to sunshine. Some people are unable to be exposed to the sun due to skin condition. Often supplementation is needed. Many multivitamins contain some vitamin D and vitamin D alone preparations are now available in several forms. The recommended daily intake of vitamin D used to be 400 and 800 international units, however, it is now known that larger amounts are needed, as discussed above. Your doctor can prescribe prescription strength vitamin D for you if necessary, if you have marked deficiency or diseases of the liver or kidney. Supplementation in patients with severe deficiency can stabilize or improve bone mineral density and in frail elderly persons, may reduce their risk of falling. Additional Information is available from: www.nof.org (the national osteoporosis foundation) http://www.[facility].org/arthgabriella is/osteo/info.htm http://ods.od.nih.gov/factsheets/vitam ind.asp [place] [facility]: 2-784-566-BONE [facility] Calcium Information [place]: At [facility], we work as a team for your care, along with Nurse Practitioners, Physician Assistants, Nurses and Medical Assistants. It is a privilege and honor to serve you. Thank you for choosing [facility] for your healthcare. Sincerely, Nidia Weston APRN.JOSE documented in this encounter [facility] 03-02-2023 History of Present illness Narrative Follow up Telephone visit Jam Toscano is a very nice 57 year old male seen for Rheumatoid Arthritis and Osteoporosis Additional details per last visit note Patient agrees to telephone visit Subjective: Patient reports: Called dentist this morning Has appt dentist 03/04 2pm Has not completed dental procedure yet GI last month and 03/23 has scope scheduled Humira increased weekly SSZ 2 tabs 4 times daily Vit d 5000 international unit(s) daily Mesalamine nightly BM improving - urinating more Tumeric daily - started by GI Pain- gut cramps - takes pill for that as needed RA is doing well No joint swelling No flares RA Lower back pains improved Has been moving more - lost 5 lbs No fractures Feeling better Following with ortho for prior knee and hip replacements No falls No interim fractures No new bone pains No serious infections or fevers OP therapy: not on treatment Bone tests were reviewed at this visit Full labs enclosed Review of Systems CONSTITUTION: Negative for: Weight loss or gain, Fever. Chills, Night sweats HEENT: Negative for: Nosebleeds, Mouth sores, Trouble swallowing, Dry mouth RESPIRATORY: Negative for: Cough, Shortness of breath, Pain with breathing, Coughing up blood GASTROINTESTINAL: Positive for: Diarrhea and Abdominal pain Negative for: Melena and Heartburn MUSCULOSKELETAL: Negative for: Arthralgias, Myalgias, Muscle weakness, Joint swelling and Morning Joint Stiffness NEUROLOGICAL: Negative for: Headaches, Numbness, Memory loss, SKIN: Positive for: Hair loss (thinning) Negative for: Rash, Sun Sensitive Rash, Skin changes and Nail changes EYES: Negative for: Eye pain, Eye redness, Visual disturbance, Eye dryness CARDIOVASCULAR: Negative for: Chest pain, Leg swelling, Arrhythmia, Presyncope GENITOURINARY: Negative for: Dysuria, Hematuria and Ulcerations Still has a kidney stone Following with urology- will see someone else if has further issuses HEMATOLOGIC/LYMPHATIC: Negative for: Swollen glands - medical history - medications - allergies - family history - social history - radiology - tests Full details in patient's emr chart Additional pertinent test results reviewed Pertinent imaging scans/films reviewed Physical Exam There were no vitals taken for this visit. 97.9 F - BP 121/75 HR 74 - took at home Telephone call ASSESSMENT: M05.79 Rheumatoid arthritis 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) (primary encounter diagnosis) Z71.2 Encounter to discuss test results Z71.89 Counseling on health promotion and disease prevention K51.00 Ulcerative pancolitis (HCC) M81.8 Other osteoporosis without current pathological fracture Per Dr. Dubon last note -Chronic, severe long standing Rheumatoid Arthritis, deforming, erosive, nodular, prior to following with us Sero-positive s/p multiple joint surgeries Has multiple chronic joint deformities He has had very good response to Enbrel with remission due to med. And since switched to Humira, reports continued response. -At today's visit, the patient's Rheumatoid Arthritis does not appear to be active and has been in remission with anti-TNF therapy. Anti- TNF therapy is indicated and medically necessary for maintenance of remission in patient's severe chronic Rheumatoid Arthritis. His certified meeting professional has switched him to Humira as he feels patient would have better response to his IBD and is prescribing sulfasalazine and mesalamine (endema). -Vitamin D deficiency- corrected He is on supplements, requires monitoring due to risk of recurrent deficiencies. He reports taking 5000 international units daily with a meal, maintenance Will update labs -Osteoporosis DXA August 19, 2018 Lowest T-score -2.5 (left fem neck) No history of frag/ fractures Not currently on steroids, has had in past His OP evaluation, was normal for testost, NTX, celiac, homoc, magn, serum monocl, iPTH, calcium, vitamin D. His phos was low and improved with increased dietary phos. His urine monoclonal revealed M protein and we have referred him to Hematology Oncology -DXA August 22, 2020, lowest T-score -2.7 (left fem neck) Left total neck T-score -2.6 Spine T-score -1.7, stable BMD, but is unreliable due to degen. disease Bone loss at the fem neck by 6.3% I reviewed concerns for bone loss Advised on caution with steroid use and to explain to his other providers that he has Osteoporosis and bone loss, avoiding steroids when possible. I reviewed risk of bone loss and fracture and discussed guidelines and recommendations for therapy. I reviewed Reclast infusion and patient wishes to proceed. Will obtain insurance precert. Due to his gastrointestinal disease, IBD, oral bisphosphonates are contraindicated. With M protein, Forte and Tymlos need to be deferred Prolia is another option. Evenity has not been yet approved in men. I reviewed IV Reclast infusion at multiple visits. I advised him that he needs to have his dental work completed first and reviewed risk of ONJ. He has not been able to completed in 2019 or since and is looking into dental insurance. He will let us know when his dental work is completed. He is aware that dental work needs to be completed before Reclast and was advised to f/u with his dentist and relayed that he plans to. I reviewed importance of f/u with dentist and explained also that this is delaying his Osteoporosis therapy. Patient will contact me after he has completed his dental work. -DXA September 23, 2022, lowest T-score -2.5 (left fem neck) Stable BMD, no bone loss compared to 2020. He remains at risk for fracture and further bone loss, colton with his active IBD and intermittent steroid therapy from his certified meeting professional. Pharmacologic therapy is still indicated and recommended, however, are still awaiting completion of dental work. -I have referred him to Hematology Oncology for urine M protein (checked twice) and has labs ordered by them. Has not had f/u for 2 yrs. Will update labs and if abnormal will refer again. Recheck were normal Rheumatoid arthritis No joint swelling, no RA flares. GI UC is improving. Humira increased to weekly, SSZ 8 tabs daily. Per GI. Not moving much Osteoporosis Not currently on treatment, vit d 5000 international unit(s) daily . Last vit d normal. Has not seen dentist yet , needs dental procedures. No falls, no fractures, no new bone pains, no procedures planned, no s/s of infections and no antibiotics. I reviewed risk for future fragility fractures and bone loss. Reviewed indication and guideline recommendations for pharmacologic therapy Reviewed healthy lifestyle and role of diet and exercise and stress on Osteoporosis and bone loss. I have discussed FDA approved medications Written information provided to patient on OP, Ca/D, BMD, ONJ, Bone health and recommendations, OP medications. Also provided information on web for additional information if necessary, CC, [facility] and [facility] and [facility]. PLAN: No orders found for this visit on 03/02/23. Please continue on yout Vitamin D 5000 international units once daily with meals and your multivitamin - You are on Humira and sulfasalazine for your Ulcerative Colitis. These are also treating your Rheumatoid Arthritis. 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 Supplements recommended Vitamin B12: 500 to 1000 mcg once daily Vitamin D: 5000 international units once daily with meals OP med: discuss in 2 months Risks, benefits, alternatives, reported side effects, indication, limitations/expectation of medication(s) were discussed with patient and patient wished to proceed. Written information provided for patient review. Review of Osteoporosis medications Medications that prevent bone loss and Osteoporosis fractures: -Oral bisphosphonates (such as Actonel, Boniva, Fosamax/alendronate), these are taken either once a week or once a month (depending on med chosen), first thing in the morning, with special instructions to follow. The duration would be limited to 5 yrs, to prevent increased risk for atypical fracture of femur -IV Reclast, is 5 mg intravenous infusion given once a year for Osteoporosis and once every two years for Osteopenia. This is a 15 to 20 minute infusion given at our infusion center. For that infusion, it would be important to have completed any necessary dental work and continue following with your dentist every 6 months and the recommended lab work we ordered. You would need to be well hydrated to insure good kidney function. Please insure adequate hydration with water, about 6 to 8 cups of water, the day before, the day of the infusion and the day after. Please avoid dehydration in general. Some people experience flu like symptoms and low grade fever, after the infusion. This is usually self limited and will resolve. The recommended treatment for symptom relief is taking acetaminophen/Tylenol two extra strength tablets (500mg each) every 6 hours until this has resolved, usually does not last more than 3 days. IV Reclast once a year is usually limited to no more than 3 yrs, to prevent increased risk for atypical fracture of femur. -Subcutaneous Prolia: this is one injection every 6 months, given by the nurse in the office. This medication is given intermodal dispatcher, indefinitely. Prolia should not be discontinued without proven back up therapy, due to incr risk of vert fractures after withdrawing Prolia. Discussed recent research findings and recommendations that Prolia if started and continued past 1 to 2 yrs, may need to be indefinitely, for now, until new studies show effective transition therapy. Advised that Prolia should not be discontinued due to reported increased risk of bone loss and vertebral fractures after withdrawing Prolia. Multiple studies have looked into transition therapy. Recent study from [facility] Slim et al, 04/11/2020, reported one infusion of IV Reclast did not prevent bone loss after Prolia was discontinued. At this time, would need to await additional studies on what is the best approach and strategy, for if and when, Prolia is no longer necessary. For patients who have been on Prolia past 2 yrs, bone loss still occurred despite an infusion with zoledronic acid following discontinuation of Prolia. Some patients required another infusion of zoledronic acid after 6 months from their first one. In some patients Prolia would need to be continued indefinitely. The 10 year data on Prolia are reassuring in terms of safety and efficacy. Reviewed importance of regular dental care, follow up with dentist and good oral hygiene We also reviewed risk of reported ONJ (osteonecrosis of the jaw) and atypical fracture of femur. Discussed infection precautions. Indication for lab work prior to Prolia injections and importance of continued follow up. Risks, benefits, alternatives, reported side effects, indication, limitations/expectation of medication(s) were discussed with patient. Written information provided for patient review. Medications that build bone density and prevent osteoporosis fractures: -Subcutaneous Forteo or Tymlos, once daily injections at home: these are for 2 yrs and then will need to transition to anti-resorptive therapy, such as a bisphosphonate or Prolia after that, based on guidelines. Medication that both prevents bone loss and builds bone density and prevents Osteoporosis fractures: -Subcutaneous Evenity (romosozumab, an anti-sclerostin monoclonal antibody). This is a monthly subcutaneous injection (2 injections every visit, by the nurse). This is given for 1 year and if further treatment is required after that, we would transition to Prolia or a bisphosphonate. It has listed CV risk and warning that it should not be initiated in patients who have had an AK or stroke in the preceding year. This is only prescribed for 1 year and if treatment for Osteoporosis is still warranted, would need to switch to anti-resorptive therapy, according to recommendations. Other less potent Osteoporosis medications, such as evista and miacalcin have not been proven to prevent non-vertebral fractures Reviewed importance of regular dental care, follow up with dentist and good oral hygiene We also reviewed risk of ONJ and atypical fracture of femur Risks, benefits, alternatives, reported side effects, indication, limitations/expectation of medication(s) were discussed with patient. Written information provided for patient review. The nature of osteopenia and osteoporosis and bone thinning, as well as bone loss, was discussed with the patient as well as risk factors for osteoporosis and bone loss, as well as risk factors for fragility fractures from osteoporosis and reported associated risk of morbidity and mortality. I also informed patient that osteoporosis is a silent disease, it is asymptomatic and does not lead to pains. Patients with new bone pains require evaluation for fractures. Patients with chronic pains should not be assumed that is from osteoporosis. I also reviewed with patient risk of fragility fracture from osteoporosis and indication and recommendations by the National Osteoporosis Foundation for pharmacologic therapy and standard of care to decrease risk of OP fractures and bone loss. I reviewed indication for therapy with FDA approved osteoporosis medications with the patient and based on current guidelines and recommendations. I reviewed risk of atypical fracture of femur and ONJ with anti-resorptive therapy. With reports and concern regarding atypical and subtroch. 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 We also follow bone markers and monitor for evidence of oversuppression with anti-resorptive agents. I offered additional time to address all patient's questions and answer all OP questions. I have provided education on wellness and healthy lifestyle. Additional information provided with references and educational information. Bone health recommendations provided Bone Health Recommendations: -Vitamin D supplementation recommended, optimal dose is the dose necessary to achieve Vitamin D 25-OH blood level in range of 40-60 ng/mL. (Vitamin D supplement in international units, is the dose necessary to achieve a Vitamin D 25-OH blood level in range of 40-60 ng/mL). -Recommended daily dose of calcium: 1200mg total a day in divided doses. Calcium from dietary sources, if not sufficient, or if with h/o calcium nephrolithiasis would recommend Calcium Citrate supplement, as it is recommended to avoid caclium carbonate products, which as main dietary calcium source. The after visit summary has information on dietary calcium and instructions on reading calcium label and converting the %DV to mg. -Regular weight-bearing and muscle-strengthening exercise -Avoidance of tobacco smoking, excessive alcohol intake and excessive caffeine intake. -Fall and fracture precautions -Continued regular dental follow up visits and good dental/gum care FU visit: telephone visit in 2 months discuss RA/ OP meds I spent a total of 10 minutes on the telephone which included completing clinical documentation, obtaining and/or reviewing separately obtained history, and counseling and educating the patient/family/caregiver. The patient follows with their Primary care physician for their other health management Recommendations to share with Primary care physician: Dear Dr. Lackey: I had the pleasure of seeing your patient, Jam Toscano. I have enclosed a copy of my clinic note with my assessment and recommendations for this patient. -Continuous follow up with Primary care physician for cardiovascular disease prevention, for age appropriate cancer screening and routine health maintenance and wellness, and infection precautions and age appropriate immunization recommended. Thank you for allowing me to participate in the care of your patient. Nidia Weston APRN.[facility] Jose L Lackey MD, MD Patient Instructions -PLEASE NOTE THAT WE REVIEW ALL YOUR TEST RESULTS AT YOUR NEXT FOLLOW UP VISIT WITH YOU. IF ANY ABNORMAL LAB REQUIRES SOONER ATTENTION, WE WILL CONTACT YOU. -If you have signed up on [employer], we will release your test results through [employer]. I wish you the best of health and wellness. Please take care and stay safe and healthy. Consume a healthy diet, stay well hydrated, sleep well, be happy, improve stress (include meditation), exercise regularly. Spend some time in nature, around trees and osborn (forest bathing) and enjoy half an hour daily in the sun when possible (and benefit from its natural near infrared light, also your skin will be able to produce natural vitamin D). These have been shown to help with wellbeing, promoting a healthy immune system and healing. Instructions and Recommendations: Please follow up with your dentist as discussed and once you have completed dental work, please contact me so we can discuss Osteoporosis medication. -Please continue on yout Vitamin D 5000 international units once daily with meals and your multivitamin - You are on Humira and sulfasalazine for your Ulcerative Colitis. These are also treating your Rheumatoid Arthritis. 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 Supplements recommended Vitamin B12: 500 to 1000 mcg once daily Vitamin D: 5000 international units once daily with meals - Maintaining good vitamin D blood levels is important for bone health and overall health. Please see additional information on vitamin D below. A vitamin D blood test, called vitamin D 25-hydroxy (OH) is obtained to assess vitamin D level. If the vitamin D is low, you will need to take a vitamin D supplement. If you are already on a vitamin D supplement, then the dose will need to be adjusted. Also you multivitamin may contain vitamin D. Vitamin D is a fat soluble vitamin that requires it be taken with good fat to be absorbed. Examples of healthy fat include nuts, seeds, avocados, olives and for the most part the meal of the day. Spending up to 30 minutes in the sun during Summer and late Spring can provide natural vitamin D to the uncovered skin (arms, legs) - Your calcium can be sufficient in your diet. Healthy food that are rich in calcium include: nuts, seeds, legumes/beans, peas, dark green leafy vegetables, plant based milk Additional calcium rich foods listed below - Soaking Almonds overnight in the fridge with drinking water, can help with softening the almonds and improved absorption of the almonds. Please be careful not to break a tooth with dry raw almonds, or other hard nuts or seeds. If your lab work shows insufficient calcium or you are unable to consume sufficient foods rich in calcium, then a calcium supplement is recommended, such as calcium citrate. - You can track your nutrition and calcium intake on www.[employer].XING This provides macro and micronutrient intake and requirements. - You can track your calcium intake on [employer] or any other calcium tracker of your choice. If you are not getting about 1200 mg of calcium daily, you will need to add a calcium supplement, such as calcium citrate to supplement you daily calcium so you can achieve your total 1200 mg daily See additional information below on calcium. Please continue following with your dentist every 6 months If you are on Osteoporosis medication, please inform your dentist as invasive dental work with these medications can increase one's risk for ONJ (osteonecrosis of the jaw). Please continue with good oral hygiene and dental care - Please do your best follow, as close as you can, a Whole Food Plant Based diet lifestyle. It is important to avoid unhealthy foods and increase healthy and disease fighting foods. -Review the information provided below. -Start by avoiding all dairy. You can use non-dairy plant based alternatives -Decrease the amount of meat and animal product you consume. For your Ulcerative Colitis it is best to avoid all animal protein. If you need to consume a burger, you can chose a plant based burger. -Avoid fried food and cooking with oil, butter, ghee or fat, as much as possible. You can stir marshall your vegetables with vegetable broth or water. You can use an air fryer for crisping vegetables. Consider broiling, roasting your vegetables or steaming them. -Avoid consuming a lot of over processed foods and ones that contain artifical additives. -Learn 5 recipes that are plant based that you can cook comfortably and that you really like. Then cook at least one of these recipes every week. If you are unable to cook and prefer to have food prepared or delivered to you, you can order healthy plant based food at multiple sites available now for a cost, such as at www.[employer]. -When eating a whole food plant based diet, remember to eat well and sufficiently, as plant foods are naturally lower in calories. Make your plate contain starchy food, whole grains, non-starchy vegetables (such as green) and legumes/beans/tofu/tempeh. You can use tofu, soy curls, tempeh, mushrooms, lentils, beans, walnuts as meat substitutes in cooking. You can consume raw unsalted nuts and seeds as snacks or in your salads. Consume fruits during the day. The vegetables can purchased be fresh or frozen. -Remember to hydrate well with water. - I recommend following a healthy lifestyle. You can find additional information below. I recommend this to all my patients, as I have seen convincing scientific evidence, and seen the results in my practice, of the benefits of this healthy lifestyle to overall health and wellness. I hope you will find this beneficial as well. A whole plant based diet and healthy lifestyle have been reported to be optimal for health in general, anti-inflammatory diet, prevention of common chronic diseases, healthy weight management, memory and brain healthy, bone health. - You can track your nutrition and calcium intake on www.[employer].XING This provides macro and micronutrient intake and requirements. Recommendations for healthy lifestyle include: Healthy nutritious diet, anti-inflammatory diet, appropriate exercise, good sleep hygiene, stress management, supplementing vital deficiencies and maintaining healthy weight. with BMI that does not exceed 25 to 26 . 5 points to remember to improve your health and continue on a healthy path: 1- Optimal nutritious food, such as a Whole Plant Based diet You can watch the documentary movie that features the Whole Plant Based diet, [place] over knives (see video online and visit website). Another movie that was recently released is: Eating You Alive (you can find it at [employer]) and The [employer] movie Dr. Fauzia Ansari is a [facility] physician who is an expert in Whole Plant based diet. His website is [employer]. His research highlights the benefits of the Whole food plant based diet in reversing and preventing heart disease. Mrs. Ansari (his ) has a cookbook with many recipes on whole plant based food: The Prevent and Reverse Heart Disease cookbook. You can also consider reading his son, Eze Ansari's book: The [employer] cookbook Eze is a retired tree shear operator who has helped many people get healthier by following the whole food plant based diet. Dr. Rock Velazco, has a website and free claudia to help get started on a whole plant based diet, at www.pcrm.org and you can log on for free for his 21-Day Kickstart with meals and recipes to follow for 21 days. There is also a free claudia for that. He has multiple free videos and YouTube, for example: https://youtu.be/ugyFttuI9j2 , https://youtu.be/SwKZVwqyf7m He has written multiple books, including Power Here On Biz for the Brain, The Cheese Trap, Dr. Rock Velazco's Program for Reversing Diabetes, Your Body in Balance Dr. Anthony Carlson has shown the benefit of a starch based whole food plant based diet to his Rheumatoid Arthritis patients, as well as patient with diabetes II, hypertension, obesity, multiple sclerosis, heart disease, acne, and other, his website: www.debra.XING Dr. Yayo Allred is a renowned non destructive testing scientist, who has studied and researched the benefits of the Whole plant based diet. He has also researched the adverse effects of animal proteins on health. He presents many of his research findings in his book The [place] study. Dr. Gerber Becker has completed many research trials proving the reversal of diseases, such as heart disease and early prostate cancer, with healthy lifestyle and the Whole Plant based diet. Dr. Gerber Becker website is: www.[employer].XING His new book: Undo It, has evidence based information and guide to following this healthy lifestyle. Dr. Cody Dillon has dedicated a website and additional time to reviewing all food related articles and research and presents them in his power point presentation and on his website at: nutritionfacts.org which is all free. Dr. Dillon has multiple free videos and YouTube, for example https://[employer]NS Therapeuticsu.be/aSgNkhgVtks and https://enercast.be/lXXXygDRyBU. He has written multiple books including: How Not To and How Not To Diet He is now working on his next book: How Not To Age Dr. Danitza Dash (from the [facility]), has articles on the following website: [email or web address] Also, you could find additional information on practical to follow recipes by reading or watching online and YouTube such as: Fur Blower BARBRA, Cooking With Plants, The Vegan Corner (recipes from an Chinese Fur Blower), The Whole Foods Plant Based Cooking Show and visiting the provided websites for additional information on the whole plant based benefit and cooking recipes. You can also consider watching the vlogs of some of the plant based Athletes such as Fausto Ewing Derek on [employer] app Nutrition. Dr. Maryan Holguin (a psychiatrist who suffered with lupus) has helped reverse her Systemic Lupus Erythematosus and helps many patients with their auto-immune diseases, based on her recommendations of the whole food plant based diet and the green smoothies. She has a facebook and website, and on youtube her channel is: Nicholasjoycepilar Lupus Some people have adverse effect or intolerance to gluten. Certain patients with auto-immune disease, including auto-immune thyroid disease, need to avoid gluten. If you suspect you are gluten sensitive or intolerant, consider gluten free diet. Gluten could lead to increased inflammation in the bowels and body in certain patients. Not all your food has to be organ if you cannot afford or find them. Consider organic and non-GMO products when shopping for your food, when possible. GMO are genetically modified food that may have adverse impact on our health. If you are unable to purchase organic of non-GMO, you can wash your produce with white vinegar or soak in baking soda and water (see details from Dr. Yañez's website nutritionfacts.org) and rinse well with water. 2- Regular Exercise, such as beginner yoga, tommie chi, stretching, cardio, gradual strengthening, pool therapy, physical therapy Come As You Are: YOGA - Gentle Yoga Anyone Can Do Anywhere [email or web address] Also on youtube: yoga with Karlie 3- Good Sleep (poor sleep impacts everything, recommended sleep is 7.5 to 8 hrs. a night). Certain people need less or more sleep. Meditation and relaxation techniques have shown to help with improving sleep. 4- Stress management, staying positive, be happy, laugh often (it is a great medicine) Find time to relax and meditate if possible. Following steps 1-3 will help with this as well. In psychiatric disorders, it is important to follow with a professional on the optimal management of depression, anxiety or psychiatric illness 5- Supplements Supplementing necessary vitamins and minerals, correcting any deficiencies, i.e. Vitamin D, B12, omega-3 fatty acids etc... Go natural when possible -Important notice: If you are following a Whole plant based diet, it is recommended to take Vitamin B12, sublingual, dissolve under the tongue, take once daily. Vitamin B12 is available over the counter, dose could be 2500 mcg, and can be taken once a week, and if your blood levels are low, you may need to take it once daily or a higher dose. Raw: Garlic, Cilantro, Pilot nuts, Pumpkin seeds, [place] seeds and Flax seed powder have been reported to help with certain metal detoxification such as mercury. [place]-3 plant based rich foods are good anti-inflammatory sources such as : david seeds, flax seed (needs to be ground), walnuts, hemp seeds, dark green leafy vegetables. It is important to avoid refined oils as much as possible especially that many have too much omega-6 that is pro-inflammatory (lead to inflammation as well as concern for heart and vascular disease). Turmeric can be found natural, used as the spice powder or the root with your food. This is also available as a capsule. If you are on a blood thinner, you will need to discuss with your pharmacist or physician before taking Turmeric If you have gall bladder disease or gall bladder stones, it is recommended to avoid turmeric capsules. Sweet cherries (raw cleaned or frozen), Turmeric , pineapple (contains bromelain), omega-rich foods, have anti-inflammatory benefit Start reviewing the Whole Plant Based Diet, by watching [place] over [employer] movie and then review website. There are many other resources and educational information on the Whole plant based diet on the Internet and documentaries. There are other resources for wellness that you can also benefit from, such as the [facility] website, [email or web address] and includes Plant based and Mediterranean diet, yoga and meditation. Please avoid all dairy products. You could use non-dairy milk such as Flax milk, Cashew milk, [place] milk, Rice milk, Oat milk or Hemp milk, instead. It is very important to avoid all: refined sugars (including high fructose syrup), refined carbohydrates, any artificial sweeteners and artificial preservatives, and soda and heavily processed food. Insure adequate hydration; drink at least 6 to 8 cups of water daily, certain people need less or more. Examples of Smoothies: Every morning you can start your day with a healthy natural anti-inflammatory smoothie, for example, you can blend: fresh or frozen sweet cherries, half a root of turmeric (1 to 2 inches), banana, blue berries, walnuts, few leaves of kale, add flax milk (or almond milk), and enjoy. You could add half an avocado if you like it smoother. If you do not tolerate walnuts, you can use flax seeds, david seeds or hemp seeds instead. If you do not like plant based milk, you can use coconut water or plain water instead. Other smoothies, including green smoothies, are also very healthy and highly anti-inflammatory. For example fruits (such as banana or frozen raul or pineapple) and add significant amount of leafy greens, then add water or coconut water and blend until smooth. You can also add turmeric in this recipe. GENERAL INFORMATION ON BONE HEALTH : -Bone Density testing (DXA scan) as recommended. -Vitamin D supplementation is recommended, unless blood levels are sufficient. Recommended daily dose of 1000 to 2000 IU total a day, or the dose necessary to achieve a Vitamin D 25-OH blood level of >31 and preferably closer to 40-60 ng/mL. Vitamin D pills are available over the counter. -Recommended daily dose of calcium: 1200mg total a day in divided doses. Calcium is usually sufficient in our regular diet, also available in multivitamins. Patients on certain dietary restrictions or those unable to meet their daily calcium by diety alone, may require calcium supplements. For patient with history of calcium kidney stones, Calcium Citrate would be the recommended supplement. It is recommended to avoid caclium carbonate supplement in this case, as these may increase risk of calcium kidney stones. The after visit summary has information on dietary calcium and instructions on reading calcium label and converting the %DV to mg. When you read a food label and you see calcium reported as DV %, add a zero and this will provide you with the approximate mg value of the calcium content in this food. For example, if a glass of almond milk is labeled as 40% calcium DV, then this contains 400 mg of calcium. For additional information, please see references provided. -Regular weight-bearing and muscle-strengthening exercise -Avoidance of tobacco smoking, excessive alcohol intake and excessive caffeine intake. -Fall and fracture precautions -It is recommend to continue regular follow up visits with your dentist every 6 months, and continue with good oral hygiene. Calcium: If your diet is sufficient in Calcium rich food, you will not need calcium supplement. Calcium Citrate is the preferred calcium if you have had kidney stones. Daily recommended calcium dose: 600mg twice a day with meals. Adequate calcium ingestion is essential for maintaining healthy bones. The recommended dose daily intake of calcium varies depending on individual needs but is usually between 1200 and 1500mg daily, preferably around 1200mg a day in divided dose (not all taken at once). This is equivalent to about five 8oz glasses of milk per day. Many foods are rich in calcium and they include: - Plant based, non-dairy, calcium rich products, include nuts, almond milk, beans, lentils - Vegetables and Fruit: bok-marin, turnips, broccoli, kale, collards, - Dairy products: milk, cheese, yogurt, ice-cream - Fish products: canned salmon, sardines and shrimp - Cereals and nuts: almonds, sesame seeds, fortified cereals and oatmeal - Other foods: fortified orange-juice, figs, soybeans, other beans and eggs. If you have a low calcium diet and cannot tolerate calcium-rich foods, many supplements are available today. Your pharmacist can help you choose the one which best suits your needs. A few tips on supplements: - They should be easy to swallow - They should dissolve easily in cup of vinegar in < 15 minutes. - Count the ELEMENTAL calcium mgs. E.g. Calcium 499mg may have only 221mg of elemental Calcium. - Calcium citrate is the calcium supplement to take if you have had kidney stones and unable to meet your calcium requirements from food/diet alone. - There is such a variety today that it is best to bring in the bottle to your doctor to show them exactly what you are taking. Lastly too much calcium can be bad for you. Recent studies show extra supplements may increase your risk of kidney stones or cause high calcium levels in some people. You should discuss how much you should be taking with your doctor before starting them. Further Information is available from the following resources: www.nof.org (National Osteoporosis Foundation) http://www.osteo.org/osteolinks.asp National Institutes of Health: 0-587-140-BONE The Calcium Information Center: -Non-Dairy, Plant based Milk, can contain in1 glass up to 450 mg of calcium (300 to 450 mg) Exampled include Oat Milk, Flax Milk, [place] Milk, Cashew Milk, Soy Milk, Peas Milk general health and well being Examples of Food Sources of Calcium from [facility] Food Milligrams (mg) per serving Percent DV* Soymilk, calcium-fortified, 8 ounces 299 30 [place] juice, calcium-fortified, 6 ounces 261 26 Tofu, firm, made with calcium sulfate, cup* 253 25 Tofu, soft, made with calcium sulfate, cup* 138 14 Tzptr-yh-beo cereal, calcium-fortified, 1 cup 100-1,000 10-100 Turnip greens, fresh, boiled, cup 99 10 Kale, raw, chopped, 1 cup 100 10 Kale, fresh, cooked, 1 cup 94 9 Egyptian cabbage, bok marin, raw, shredded, 1 cup 74 7 Bread, white, 1 slice 73 7 Tortilla, corn, sihdx-ge-vjea/marshall, one 6 diameter 46 5 Tortilla, flour, ddqnw-wn-hgdf/marshall, one 6 diameter 32 3 Bread, whole-wheat, 1 slice 30 3 Broccoli, raw, cup 21 2 * DV = Daily Value. DVs were developed by the U.S. Food and Drug Administration to help consumers compare the nutrient contents among products within the context of a total daily diet. The U.S. Department of Agriculture s (USDA s) Nutrient Database Web site lists the nutrient content of many foods and provides comprehensive list of foods containing calcium arranged by nutrient content and by food name. *Calcium content varies slightly by fat content; the more fat, the less calcium the food contains. * Calcium content is for tofu processed with a calcium salt. Tofu processed with other salts does not provide significant amounts of calcium. You could acces this information online at: http://ods.od.nih.gov/factsheets/Calci -HealthProfessional/ Vitamin D: Vitamin D3= cholecalciferol, available over the counter. Dose recommended 800 to 1000 iu daily with a meal; Certain patients require 2321-4938 iu daily and in patients deficient in Vitamin D, they require higher dosages. Certain patient requires higher dose, depending on their Vit D blood levels. Vitamin D is essential for calcium metabolism. It is really a hormone produced mainly in your skin after exposure to sunlight. Vitamin D helps you absorb calcium from your stomach and kidneys and incorporates it into your bones. Studies show approximately 50% of [place] men and women are vitamin D deficient in the winter. Milder cases of vitamin D are usually asymptomatic so the only way to know you have a problem is to have a blood level checked. More severe cases can cause osteomalacia (a.k.a. rickets) which can result in bone pain, weak bones and several abnormal laboratory tests and also weak muscles (a.k.a. myopathy). When this happens, your bones lose a lot of their calcium stores as the body tries to regulate the calcium required by other tissues. Prolonged deficiency can lead to severe bone disorders and fractures. Unlike calcium, dietary sources of vitamin D are rare, limited to a few fish oils particularly cod-liver oil, other fortified foods and egg yolks. and most are unhealthy. Natural source of vitamin D is through sunshine. This is usually during jose seasons, for example a 30 minute exposure to sunshine. Some people are unable to be exposed to the sun due to skin condition. Often supplementation is needed. Many multivitamins contain some vitamin D and vitamin D alone preparations are now available in several forms. The recommended daily intake of vitamin D used to be 400 and 800 international units, however, it is now known that larger amounts are needed, as discussed above. Your doctor can prescribe prescription strength vitamin D for you if necessary, if you have marked deficiency or diseases of the liver or kidney. Supplementation in patients with severe deficiency can stabilize or improve bone mineral density and in frail elderly persons, may reduce their risk of falling. Additional Information is available from: www.nof.org (the national osteoporosis foundation) http://www.[facility].org/leesa is/osteo/info.htm http://ods.od.nih.gov/factsheets/vitam ind.asp National Institutes of Health: 2-755-958-BONE The Calcium Information Center: At [facility], we work as a team for your care, along with Nurse Practitioners, Physician Assistants, Nurses and Medical Assistants. It is a privilege and honor to serve you. Thank you for choosing [facility] for your healthcare. Sincerely, Nidia Weston APRN.MANAGER COLLECTION PAST MEDICAL HISTORY Diagnosis Date Monoclonal gammopathy History reviewed. No pertinent surgical history. Social History Tobacco Use Smoking status: Former Smokeless tobacco: Never Tobacco comments: quit in 2011 Vaping Use Vaping Use: Never used Substance Use Topics Alcohol use: Never Drug use: Never History reviewed. No pertinent family history. ALLERGIES No Known Allergies Current Outpatient Medications Medication Sig Azelastine HCl (OPTIVAR) 0.05 % ophthalmic solution INSTILL 1 DROP INTO EYE ONCE DAILY mesalamine (ROWASA) 4 gram/60 mL enema USE 1 ENEMA RECTALLY EVERY DAY AT BEDTIME HUMIRA,CF, PEN 40 mg/0.4 mL pen kit Inject 40 mg subcutaneously every 2 weeks. Prescribed by [employer] : Nel Lebron MD Previously prescr. by Ronald Brown MD folic acid 1 mg tablet Take 1 mg by mouth once daily. CETIRIZINE HCL (ZYRTEC ORAL) Take by mouth. Cholecalciferol, Vitamin D3, 5,000 unit cap Take 5,000 Units by mouth once daily. patient taking once daily with food ezetimibe (ZETIA) 10 mg tablet Take 10 mg by mouth once daily. atorvastatin (LIPITOR) 20 mg tablet Take 20 mg by mouth once daily. lisinopril (ZESTRIL, PRINIVIL) 20 mg tablet Take 20 mg by mouth once daily. Omeprazole 40 mg capsule Take 40 mg by mouth once daily. CHEWABLE MULTI VITAMIN ORAL Take by mouth. SULFASALAZINE ORAL Take by mouth. takes 8 pills a days, divided three times daily (3 in am, 3 noon, 2 pm), per certified meeting professional No current facility-administered medications for this visit. RELEVANT PREVIOUS INVESTIGATIONS: Calcium Date Value Ref Range Status 08/22/2020 9.4 8.5 - 10.2 mg/dL Final 01/17/2020 9.3 8.5 - 10.2 mg/dL Final 02/10/2019 9.5 8.5 - 10.2 mg/dL Final 08/19/2018 10.1 8.5 - 10.2 mg/dL Final Phosphorus Date Value Ref Range Status 08/22/2020 2.8 2.7 - 4.8 mg/dL Final 01/17/2020 2.5 (L) 2.7 - 4.8 mg/dL Final 07/12/2019 2.5 (L) 2.7 - 4.8 mg/dL Final 02/10/2019 2.2 (L) 2.7 - 4.8 mg/dL Final Alkaline Phosphatase Date Value Ref Range Status 08/22/2020 135 (H) 38 - 113 U/L Final 02/10/2019 152 (H) 38 - 113 U/L Final 08/13/2017 115 (H) 36 - 108 U/L Final 02/05/2017 134 (H) 36 - 108 U/L Final PTH, Intact Date Value Ref Range Status 01/17/2020 42 15 - 65 pg/mL Final 02/10/2019 57 15 - 65 pg/mL Final 08/19/2018 43 15 - 65 pg/mL Final 08/29/2015 55 15 - 65 pg/mL Final NTX, Serum Date Value Ref Range Status 08/19/2018 16.9 5.4 - 24.2 nM BCE Final TSH Date Value Ref Range Status 08/19/2018 1.930 0.400 - 5.500 uU/mL Final Testosterone Free Date Value Ref Range Status 08/19/2018 83.1 41.7 - 180.2 pg/mL Final Comment: This test was developed and its performance characteristics determined by [facility] [place] [facility] It has not been cleared or approved by the FDA. -[facility] is regulated under CLIA as qualified to perform high-complexity testing. This test is used for clinical purposes. It should not be regarded as investigational or for research. Testosterone Date Value Ref Range Status 08/19/2018 387 193 - 824 ng/dL Final Comment: A testosterone level in the 193-320 ng/dL range with associated clinical symptoms is considered low and may indicate hypogonadism (from NEJ 2010 [id number]). Results >320 ng/dL are considered normal. Vitamin D 25 Hydroxy Date Value Ref Range Status 01/29/2022 43.5 31.0 - 80.0 ng/mL Final Comment: Classification of 25 OH Vitamin D status: Deficiency/Insufficiency: < or = 30 ng/ml. Sufficiency/Optimal Levels: 31-80 ng/mL Toxicity: > 100 ng/mL. Test performed by chemiluminescent immunoassay. 02/20/2021 44.2 31.0 - 80.0 ng/mL Final Comment: Classification of 25 OH Vitamin D status: Insufficiency/Moderate Deficiency: < or = 30 ng/mL Sufficiency/Optimal Levels: 31 to 80 ng/mL Toxicity: > 100 ng/mL Test performed by chemiluminescent immunoassay. 08/22/2020 48.4 31.0 - 80.0 ng/mL Final Comment: Classification of 25 OH Vitamin D status: Insufficiency/Moderate Deficiency: < or = 30 ng/mL Sufficiency/Optimal Levels: 31 to 80 ng/mL Toxicity: > 100 ng/mL Test performed by chemiluminescent immunoassay. 01/17/2020 41.6 31.0 - 80.0 ng/mL Final Comment: Classification of 25 OH Vitamin D status: Insufficiency/Moderate Deficiency: < or = 30 ng/mL Sufficiency/Optimal Levels: 31 to 80 ng/mL Toxicity: > 100 ng/mL Test performed by chemiluminescent immunoassay. Creatinine Date Value Ref Range Status 08/22/2020 0.79 0.73 - 1.22 mg/dL Final 01/17/2020 0.83 0.73 - 1.22 mg/dL Final 02/10/2019 0.86 0.73 - 1.22 mg/dL Final 08/19/2018 0.98 0.73 - 1.22 mg/dL Final Creat Clearance Date Value Ref Range Status 01/26/2020 85 - 125 mL/min Final Unable to calculate creatinine clearance. No serum creatinine available. Protein, Total Date Value Ref Range Status 01/29/2022 7.2 6.3 - 8.0 g/dL Final 08/22/2020 7.1 6.3 - 8.0 g/dL Final 08/22/2020 6.4 6.3 - 8.0 g/dL Final 01/26/2020 6.7 6.0 - 8.4 g/dL Final Albumin Date Value Ref Range Status 08/22/2020 4.4 3.9 - 4.9 g/dL Final 01/17/2020 4.0 3.9 - 4.9 g/dL Final 02/10/2019 4.5 3.9 - 4.9 g/dL Final 08/19/2018 4.4 3.9 - 4.9 g/dL Final Alpha 1 Globulin Date Value Ref Range Status 01/29/2022 0.22 0.18 - 0.31 g/dL Final 08/22/2020 0.22 0.18 - 0.31 gm/dL Final 01/26/2020 0.27 0.18 - 0.31 gm/dL Final Alpha 2 Globulin Date Value Ref Range Status 01/29/2022 0.46 (L) 0.52 - 0.97 g/dL Final 08/22/2020 0.44 (L) 0.52 - 0.97 gm/dL Final 01/26/2020 0.57 0.52 - 0.97 gm/dL Final Beta Globulin Date Value Ref Range Status 01/29/2022 0.87 0.84 - 1.36 g/dL Final 08/22/2020 0.92 0.84 - 1.36 gm/dL Final 01/26/2020 0.98 0.84 - 1.36 gm/dL Final Gamma Globulin Date Value Ref Range Status 01/29/2022 1.45 (H) 0.70 - 1.44 g/dL Final 08/22/2020 1.04 0.70 - 1.44 gm/dL Final 01/26/2020 1.22 0.70 - 1.44 gm/dL Final Interpretation (Prot Electro) Date Value Ref Range Status 01/29/2022 No definitive M protein is identified on protein electrophoresis. Final No definitive M protein is identified on protein electrophoresis. 08/22/2020 SEE COMMENT Final Comment: No definitive M protein is identified on protein electrophoresis. 01/26/2020 SEE COMMENT Final Comment: No definitive M protein is identified on protein electrophoresis. MPA IgA, Serum Date Value Ref Range Status 08/22/2020 213 70 - 400 mg/dL Final 08/19/2018 188 78 - 391 mg/dL Final MPA IgG, Serum Date Value Ref Range Status 08/22/2020 1,098 700 - 1,600 mg/dL Final 08/19/2018 1,270 717 - 1,411 mg/dL Final MPA IgM, Serum Date Value Ref Range Status 08/22/2020 167 40 - 230 mg/dL Final 08/19/2018 147 53 - 334 mg/dL Final MPA [place], Serum Date Value Ref Range Status 08/19/2018 1,020 534 - 1,267 mg/dL Final MPA Lambda, Serum Date Value Ref Range Status 08/19/2018 551 253 - 653 mg/dL Final MPA [place]/Lambda Ratio Date Value Ref Range Status 08/19/2018 1.85 1 - 3 Final IgA Date Value Ref Range Status 01/29/2022 221 70 - 400 mg/dL Final 01/26/2020 202 78 - 391 mg/dL Final 08/19/2018 198 78 - 391 mg/dL Final 08/29/2015 207 78 - 391 mg/dL Final Vitamin D 25 Hydroxy (ng/mL) Date Value 01/29/2022 43.5 02/20/2021 44.2 ] Calcium Date Value Ref Range Status 08/22/2020 9.4 8.5 - 10.2 mg/dL Final Creatinine Date Value Ref Range Status 08/22/2020 0.79 0.73 - 1.22 mg/dL Final 01/17/2020 0.83 0.73 - 1.22 mg/dL Final 02/10/2019 0.86 0.73 - 1.22 mg/dL Final 08/19/2018 0.98 0.73 - 1.22 mg/dL Final Calcium Date Value Ref Range Status 08/22/2020 9.4 8.5 - 10.2 mg/dL Final TSH Date Value Ref Range Status 08/19/2018 1.930 0.400 - 5.500 uU/mL Final Last Bone Density DXA-AXIAL SKELETON Exam End: 09/23/2022 10:03 AM (Final result) Narrative: * * *Final Report* * * DATE OF EXAM: Sep 23 2022 10:03AM [facility] [id number] - BD DXA - AXIAL SKELETON / PROCEDURE REASON: multiple diagnoses * * * * Physician Interpretation * * * * EXAMINATION: DXA BONE DENSITOMETRY BD DXA - AXIAL SKELETON PATIENT DEMOGRAPHICS: Age: 57 years, Race: , Gender: Male SCANNER INFORMATION: DXA Model: [employer] W [id number] SITE SCANNED: Lumbar spine and left hip Date Scanned: 09/23/2022 10:03 AM Date of prior scan(s): 08/22/2020, 08/19/2018 CLINICAL HISTORY: DIAGNOSTIC Other osteoporosis without current pathological fracture High risk for hip fracture Bone loss Vitamin D deficiency. RISK FACTORS FOR OSTEOPOROSIS AND ASSOCIATED FRACTURES REPORTED BY THIS PATIENT: Parent with a history of HIP fracture Height loss of 1.5 inches or more Prior smoking history Ulcerative Colitis Vitamin D deficiency History of kidney stones No exercise Rheumatoid arthritis CURRENT THERAPY: Vitamin D and Multivitamin TECHNICAL LIMITATIONS: Degenerative disease of the spine L4 is/are deleted, per ISCD guidelines, because changes at this level may artificially alter the bone density measurement. -These show greater density compared to adjacent levels, greater than 1 SD. X-rays may be necessary to rule out sclerotic bone lesions or compression deformity at this level, clinical correlation recommended. Right hip(s) could not be scanned due to prior surgery RESULTS: Lumbar spine (L1-L3): 0.899 g/cm2, T-score -1.6, Lumbar spine: 2019: 0.861 g/cm2 No statistically significant change Lumbar spine: 2018: 0.845 g/cm2 Left Femoral Neck: 0.589 g/cm2, T-score -2.5, Z-score -1.6 Left Femoral Neck: 2019: 0.568 g/cm2 No statistically significant change Left Femoral Neck: 2017: 0.594 g/cm2 Left Total Hip: 0.671 g/cm2, T-score -2.4, Z-score -2.0 Left Total Hip: 2019: 0.645 g/cm2 No statistically significant change Left Total Hip: 2017: 0.688 g/cm2 CHANGE IS STATISTICALLY SIGNIFICANT IN THE SPINE OR HIP IF GREATER THAN OR EQUAL TO 0.04g/cm2 Impression: IMPRESSION: THE LOWEST T-SCORE IS -2.5 IN THE LEFT HIP 1) DIAGNOSIS (based on BMD alone): OSTEOPOROSIS The lowest T-score is used for diagnosis/impression Z-scores will be reported if <-1.0 or if > or = to+3.0 Note that if the patient's prior bone density test was consistent with osteoporosis, the clinical diagnosis remains Osteoporosis. Note that regardless of bone mineral density measurement, a patient may be clinically diagnosed with osteoporosis if they have had a prior fragility fracture. Caution: Medical conditions other than osteoporosis may cause low bone density, such as osteomalacia or renal osteodystrophy. Clinical correlation is necessary. 2) FRACTURE RISK (based on BMD alone): INCREASED Caution: Fracture risk may be increased independent of BMD in patients with corticosteroid use, age greater than 65 years, or a history of prior fragility fracture. The lowest T-score is used for diagnosis. Z-scores will be reported if <-1.0 or if > or = +3.0 RECOMMENDATIONS: Note that some medical conditions may cause low bone density, such as osteomalacia, vitamin D deficiency, multiple myeloma, renal osteodystrophy, hyperparathyroidism, hypogonadism, certain endocrinologic conditions, inflammatory arthropathies, gastrointestinal diseases and malabsorption, and certain medications such as, but not limited to, systemic steroids, anticonvulsants, clinical correlation is necessary. Evaluation of vitamin D status is recommended All patients should receive the recommended daily allowance of calcium and vitamin D, as recommended by the NOF and clinically indicated. Weight bearing exercises and strength training should be considered. Cessation of smoking and moderation of intake of alcohol, caffeine and carbonated beverages are recommended (for additional information please refer to NOF website at www.nof.org). Evaluation for secondary causes of bone loss is recommended in patients with a Z-score of less than -1.5 (see web-site for more details). Patients who have had a height loss of 1.5 inches or more since their peak height (tallest height), should be considered for evaluation of vertebral compression fractures by x-ray of the thoracic(with swimmers views) and lumbar spine. RECOMMENDATIONS FOR PHARMACOLOGIC THERAPY: National Osteoporosis Foundation (NOF) treatment recommendations (2008) Postmenopausal women and men age 50 and older presenting with the following should be treated: A hip or vertebral (clinical or morphometric) fracture T-score less than or equal to -2.5 at the femoral neck, total hip or spine after appropriate evaluation to exclude secondary causes For patients not on pharmacologic therapy for more than 2 years, the following recommendations may apply: Low bone mass (T-score between -1.0 and -2.5 at the femoral neck, total hip or spine) and 10 year probability of hip fracture greater than or equal to 3% or a 10 year probability of any major osteoporosis-related fracture greater than or equal to 20% based on the [place] adapted WHO algorithm for FRAX(TM): www.fili.ac.uk/FRAX/tool.jsp or The WHO Fracture Risk Assessment Tool at www.NOF.org PLEASE NOTE: THE DXA SCANNER USED FOR THIS PATIENT IS LISTED IN THE ABOVE DEMOGRAPHICS. THE TYPE OF SCANNER MUST BE ENTERED IN THE FRAX(TM) CALCULATOR TO CORRECT FOR DXA SCANNER VARIABILITY. PLEASE NOTE FRAX(TM) + Does not apply to premenopausal patients + DOES NOT APPLY TO TREATED OR PREVIOUSLY TREATED PATIENTS within past 2 years, please review updates from website listed above. ALL RECOMMENDATIONS AND CALCULATIONS ARE TO BE CONSIDERED GUIDELINES AND SHOULD NOT REPLACE SOUND CLINICAL JUDGMENT Follow-up in 2 years or as clinically indicated. Patients that are taking corticosteroids, are transplant recipients or have hyperparathyroidism should have annual follow-up. Follow-up scans should always be done on the same machine for accurate comparison. FOR MORE INFORMATION: [facility]: www.ccf.org/arthritis/osteo National Osteoporosis Foundation: www.nof.org International Society of Clinical Densitometry www.iscd.org Poster: [id number] Transcribe Date/Time: Sep 23 2022 10:28A Dictated by : DARRIAN DUBON MD This examination was interpreted and the report reviewed and electronically signed by: DARRIAN DUBON MD on Sep 28 2022 6:46PM EST documented in this encounter [facility] 01-15-2023 Miscellaneous Notes Lm regarding results and recommendations. Please call patient Normal vit d Please continue current dose Received outside lab results from Zbigniew Mullen ordered by Nidia Weston CNP -- 01/12/23 Vit D 40.2 documented in this encounter [facility] 01-11-2023 Instructions Nidia Weston APRN.CNP - 01/11/2023 7:57 PM EST -PLEASE NOTE THAT WE REVIEW ALL YOUR TEST RESULTS AT YOUR NEXT FOLLOW UP VISIT WITH YOU. IF ANY ABNORMAL LAB REQUIRES SOONER ATTENTION, WE WILL CONTACT YOU. -If you have signed up on Datalot, we will release your test results through Datalot. I wish you the best of health and wellness. Please take care and stay safe and healthy. Consume a healthy diet, stay well hydrated, sleep well, be happy, improve stress (include meditation), exercise regularly. Spend some time in nature, around trees and osborn (forest bathing) and enjoy half an hour daily in the sun when possible (and benefit from its natural near infrared light, also your skin will be able to produce natural vitamin D). These have been shown to help with wellbeing, promoting a healthy immune system and healing. Instructions and Recommendations: Please follow up with your dentist as discussed and once you have completed dental work, please contact me so we can discuss Osteoporosis medication. -Please continue on yout Vitamin D 5000 international units once daily with meals and your multivitamin - You are on Humira and sulfasalazine for your Ulcerative Colitis. These are also treating your Rheumatoid Arthritis. 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 Supplements recommended Vitamin B12: 500 to 1000 mcg once daily Vitamin D: 5000 international units once daily with meals - Maintaining good vitamin D blood levels is important for bone health and overall health. Please see additional information on vitamin D below. A vitamin D blood test, called vitamin D 25-hydroxy (OH) is obtained to assess vitamin D level. If the vitamin D is low, you will need to take a vitamin D supplement. If you are already on a vitamin D supplement, then the dose will need to be adjusted. Also you multivitamin may contain vitamin D. Vitamin D is a fat soluble vitamin that requires it be taken with good fat to be absorbed. Examples of healthy fat include nuts, seeds, avocados, olives and for the most part the meal of the day. Spending up to 30 minutes in the sun during Summer and late Spring can provide natural vitamin D to the uncovered skin (arms, legs) - Your calcium can be sufficient in your diet. Healthy food that are rich in calcium include: nuts, seeds, legumes/beans, peas, dark green leafy vegetables, plant based milk Additional calcium rich foods listed below - Soaking Almonds overnight in the fridge with drinking water, can help with softening the almonds and improved absorption of the almonds. Please be careful not to break a tooth with dry raw almonds, or other hard nuts or seeds. If your lab work shows insufficient calcium or you are unable to consume sufficient foods rich in calcium, then a calcium supplement is recommended, such as calcium citrate. - You can track your nutrition and calcium intake on www.[employer].XING This provides macro and micronutrient intake and requirements. - You can track your calcium intake on [employer] or any other calcium tracker of your choice. If you are not getting about 1200 mg of calcium daily, you will need to add a calcium supplement, such as calcium citrate to supplement you daily calcium so you can achieve your total 1200 mg daily See additional information below on calcium. Please continue following with your dentist every 6 months If you are on Osteoporosis medication, please inform your dentist as invasive dental work with these medications can increase one's risk for ONJ (osteonecrosis of the jaw). Please continue with good oral hygiene and dental care - Please do your best follow, as close as you can, a Whole Food Plant Based diet lifestyle. It is important to avoid unhealthy foods and increase healthy and disease fighting foods. -Review the information provided below. -Start by avoiding all dairy. You can use non-dairy plant based alternatives -Decrease the amount of meat and animal product you consume. For your Ulcerative Colitis it is best to avoid all animal protein. If you need to consume a burger, you can chose a plant based burger. -Avoid fried food and cooking with oil, butter, ghee or fat, as much as possible. You can stir marshall your vegetables with vegetable broth or water. You can use an air fryer for crisping vegetables. Consider broiling, roasting your vegetables or steaming them. -Avoid consuming a lot of over processed foods and ones that contain artifical additives. -Learn 5 recipes that are plant based that you can cook comfortably and that you really like. Then cook at least one of these recipes every week. If you are unable to cook and prefer to have food prepared or delivered to you, you can order healthy plant based food at multiple sites available now for a cost, such as at www.[employer]. -When eating a whole food plant based diet, remember to eat well and sufficiently, as plant foods are naturally lower in calories. Make your plate contain starchy food, whole grains, non-starchy vegetables (such as green) and legumes/beans/tofu/tempeh. You can use tofu, soy curls, tempeh, mushrooms, lentils, beans, walnuts as meat substitutes in cooking. You can consume raw unsalted nuts and seeds as snacks or in your salads. Consume fruits during the day. The vegetables can purchased be fresh or frozen. -Remember to hydrate well with water. - I recommend following a healthy lifestyle. You can find additional information below. I recommend this to all my patients, as I have seen convincing scientific evidence, and seen the results in my practice, of the benefits of this healthy lifestyle to overall health and wellness. I hope you will find this beneficial as well. A whole plant based diet and healthy lifestyle have been reported to be optimal for health in general, anti-inflammatory diet, prevention of common chronic diseases, healthy weight management, memory and brain healthy, bone health. - You can track your nutrition and calcium intake on www.[employer].com This provides macro and micronutrient intake and requirements. Recommendations for healthy lifestyle include: Healthy nutritious diet, anti-inflammatory diet, appropriate exercise, good sleep hygiene, stress management, supplementing vital deficiencies and maintaining healthy weight. with BMI that does not exceed 25 to 26 . 5 points to remember to improve your health and continue on a healthy path: 1- Optimal nutritious food, such as a Whole Plant Based diet You can watch the documentary movie that features the Whole Plant Based diet, [place] over knives (see video online and visit website). Another movie that was recently released is: Eating You Alive (you can find it at SlideRocket) and The [employer] movie Dr. Fauzia Ansari is a [facility] physician who is an expert in Whole Plant based diet. His website is [employer]. His research highlights the benefits of the Whole food plant based diet in reversing and preventing heart disease. Mrs. Ansari (his ) has a cookbook with many recipes on whole plant based food: The Prevent and Reverse Heart Disease cookbook. You can also consider reading his son, Eze Ansari's book: The Engine 2 cookbook Eze is a retired tree shear operator who has helped many people get healthier by following the whole food plant based diet. Dr. Rock Velazco, has a website and free claudia to help get started on a whole plant based diet, at www.pcrm.org and you can log on for free for his 21-Day Kickstart with meals and recipes to follow for 21 days. There is also a free claudia for that. He has multiple free videos and YouTube, for example: https://youtu.be/slfFwopS0g0 , https://youtu.be/KyDFBokrn9s He has written multiple books, including Power Here On Biz for the Brain, The Cheese Trap, Dr. Rock Velazco's Program for Reversing Diabetes, Your Body in Balance Dr. Anthony Carlson has shown the benefit of a starch based whole food plant based diet to his Rheumatoid Arthritis patients, as well as patient with diabetes II, hypertension, obesity, multiple sclerosis, heart disease, acne, and other, his website: www.debra.XING Dr. Yayo Allred is a renowned non destructive testing scientist, who has studied and researched the benefits of the Whole plant based diet. He has also researched the adverse effects of animal proteins on health. He presents many of his research findings in his book The [place] study. Dr. Gerber Becker has completed many research trials proving the reversal of diseases, such as heart disease and early prostate cancer, with healthy lifestyle and the Whole Plant based diet. Dr. Gerber Beckre website is: www.carmenKicknote.com.XING His new book: Undo It, has evidence based information and guide to following this healthy lifestyle. Dr. Cody Dillon has dedicated a website and additional time to reviewing all food related articles and research and presents them in his power point presentation and on his website at: nutritionfacts.org which is all free. Dr. Dillon has multiple free videos and YouTube, for example https://youSplurgyu.be/aSgNkhgVtks and https://youGenetic [email or web address]/lXXXygDRyBU. He has written multiple books including: How Not To and How Not To Diet He is now working on his next book: How Not To Age Dr. Danitza Dash (from the [facility]), has articles on the following website: [employer].XING Also, you could find additional information on practical to follow recipes by reading or watching online and YouTube such as: Fur Blower AJ, Cooking With Plants, The Vegan Corner (recipes from an Chinese Fur Blower), The Whole Foods Plant Based Cooking Show and visiting the provided websites for additional information on the whole plant based benefit and cooking recipes. You can also consider watching the vlogs of some of the plant based Athletes such as Fausto Ewing Derek on [employer] app Nutrition. Dr. Maryan Holguin (a psychiatrist who suffered with lupus) has helped reverse her Systemic Lupus Erythematosus and helps many patients with their auto-immune diseases, based on her recommendations of the whole food plant based diet and the green smoothies. She has a facebook and website, and on youtube her channel is: Goodbye Lupus Some people have adverse effect or intolerance to gluten. Certain patients with auto-immune disease, including auto-immune thyroid disease, need to avoid gluten. If you suspect you are gluten sensitive or intolerant, consider gluten free diet. Gluten could lead to increased inflammation in the bowels and body in certain patients. Not all your food has to be organ if you cannot afford or find them. Consider organic and non-GMO products when shopping for your food, when possible. GMO are genetically modified food that may have adverse impact on our health. If you are unable to purchase organic of non-GMO, you can wash your produce with white vinegar or soak in baking soda and water (see details from Dr. Yañez's website nutritionfacts.org) and rinse well with water. 2- Regular Exercise, such as beginner yoga, tommie chi, stretching, cardio, gradual strengthening, pool therapy, physical therapy Come As You Are: YOGA - Gentle Yoga Anyone Can Do Anywhere www.[email or web address]/yoga Also on youtube: yoga with Karlie 3- Good Sleep (poor sleep impacts everything, recommended sleep is 7.5 to 8 hrs. a night). Certain people need less or more sleep. Meditation and relaxation techniques have shown to help with improving sleep. 4- Stress management, staying positive, be happy, laugh often (it is a great medicine) Find time to relax and meditate if possible. Following steps 1-3 will help with this as well. In psychiatric disorders, it is important to follow with a professional on the optimal management of depression, anxiety or psychiatric illness 5- Supplements Supplementing necessary vitamins and minerals, correcting any deficiencies, i.e. Vitamin D, B12, omega-3 fatty acids etc... Go natural when possible -Important notice: If you are following a Whole plant based diet, it is recommended to take Vitamin B12, sublingual, dissolve under the tongue, take once daily. Vitamin B12 is available over the counter, dose could be 2500 mcg, and can be taken once a week, and if your blood levels are low, you may need to take it once daily or a higher dose. Raw: Garlic, Cilantro, Pilot nuts, Pumpkin seeds, [place] seeds and Flax seed powder have been reported to help with certain metal detoxification such as mercury. [place]-3 plant based rich foods are good anti-inflammatory sources such as : david seeds, flax seed (needs to be ground), walnuts, hemp seeds, dark green leafy vegetables. It is important to avoid refined oils as much as possible especially that many have too much omega-6 that is pro-inflammatory (lead to inflammation as well as concern for heart and vascular disease). Turmeric can be found natural, used as the spice powder or the root with your food. This is also available as a capsule. If you are on a blood thinner, you will need to discuss with your pharmacist or physician before taking Turmeric If you have gall bladder disease or gall bladder stones, it is recommended to avoid turmeric capsules. Sweet cherries (raw cleaned or frozen), Turmeric , pineapple (contains bromelain), omega-rich foods, have anti-inflammatory benefit Start reviewing the Whole Plant Based Diet, by watching [place] over [employer] movie and then review website. There are many other resources and educational information on the Whole plant based diet on the Internet and documentaries. There are other resources for wellness that you can also benefit from, such as the [facility] website, [facility]org and includes Plant based and Mediterranean diet, yoga and meditation. Please avoid all dairy products. You could use non-dairy milk such as Flax milk, Cashew milk, [place] milk, Rice milk, Oat milk or Hemp milk, instead. It is very important to avoid all: refined sugars (including high fructose syrup), refined carbohydrates, any artificial sweeteners and artificial preservatives, and soda and heavily processed food. Insure adequate hydration; drink at least 6 to 8 cups of water daily, certain people need less or more. Examples of Smoothies: Every morning you can start your day with a healthy natural anti-inflammatory smoothie, for example, you can blend: fresh or frozen sweet cherries, half a root of turmeric (1 to 2 inches), banana, blue berries, walnuts, few leaves of kale, add flax milk (or almond milk), and enjoy. You could add half an avocado if you like it smoother. If you do not tolerate walnuts, you can use flax seeds, david seeds or hemp seeds instead. If you do not like plant based milk, you can use coconut water or plain water instead. Other smoothies, including green smoothies, are also very healthy and highly anti-inflammatory. For example fruits (such as banana or frozen raul or pineapple) and add significant amount of leafy greens, then add water or coconut water and blend until smooth. You can also add turmeric in this recipe. GENERAL INFORMATION ON BONE HEALTH : -Bone Density testing (DXA scan) as recommended. -Vitamin D supplementation is recommended, unless blood levels are sufficient. Recommended daily dose of 1000 to 2000 IU total a day, or the dose necessary to achieve a Vitamin D 25-OH blood level of >31 and preferably closer to 40-60 ng/mL. Vitamin D pills are available over the counter. -Recommended daily dose of calcium: 1200mg total a day in divided doses. Calcium is usually sufficient in our regular diet, also available in multivitamins. Patients on certain dietary restrictions or those unable to meet their daily calcium by diety alone, may require calcium supplements. For patient with history of calcium kidney stones, Calcium Citrate would be the recommended supplement. It is recommended to avoid caclium carbonate supplement in this case, as these may increase risk of calcium kidney stones. The after visit summary has information on dietary calcium and instructions on reading calcium label and converting the %DV to mg. When you read a food label and you see calcium reported as DV %, add a zero and this will provide you with the approximate mg value of the calcium content in this food. For example, if a glass of almond milk is labeled as 40% calcium DV, then this contains 400 mg of calcium. For additional information, please see references provided. -Regular weight-bearing and muscle-strengthening exercise -Avoidance of tobacco smoking, excessive alcohol intake and excessive caffeine intake. -Fall and fracture precautions -It is recommend to continue regular follow up visits with your dentist every 6 months, and continue with good oral hygiene. Calcium: If your diet is sufficient in Calcium rich food, you will not need calcium supplement. Calcium Citrate is the preferred calcium if you have had kidney stones. Daily recommended calcium dose: 600mg twice a day with meals. Adequate calcium ingestion is essential for maintaining healthy bones. The recommended dose daily intake of calcium varies depending on individual needs but is usually between 1200 and 1500mg daily, preferably around 1200mg a day in divided dose (not all taken at once). This is equivalent to about five 8oz glasses of milk per day. Many foods are rich in calcium and they include: - Plant based, non-dairy, calcium rich products, include nuts, almond milk, beans, lentils - Vegetables and Fruit: bok-marin, turnips, broccoli, kale, collards, - Dairy products: milk, cheese, yogurt, ice-cream - Fish products: canned salmon, sardines and shrimp - Cereals and nuts: almonds, sesame seeds, fortified cereals and oatmeal - Other foods: fortified orange-juice, figs, soybeans, other beans and eggs. If you have a low calcium diet and cannot tolerate calcium-rich foods, many supplements are available today. Your pharmacist can help you choose the one which best suits your needs. A few tips on supplements: - They should be easy to swallow - They should dissolve easily in cup of vinegar in < 15 minutes. - Count the ELEMENTAL calcium mgs. E.g. Calcium 499mg may have only 221mg of elemental Calcium. - Calcium citrate is the calcium supplement to take if you have had kidney stones and unable to meet your calcium requirements from food/diet alone. - There is such a variety today that it is best to bring in the bottle to your doctor to show them exactly what you are taking. Lastly too much calcium can be bad for you. Recent studies show extra supplements may increase your risk of kidney stones or cause high calcium levels in some people. You should discuss how much you should be taking with your doctor before starting them. Further Information is available from the following resources: www.nof.org (National Osteoporosis Foundation) http://www.osteo.org/osteolinks.asp National Institutes of Health: 3-166-706-BONE The Calcium Information Center: -Non-Dairy, Plant based Milk, can contain in1 glass up to 450 mg of calcium (300 to 450 mg) Exampled include Oat Milk, Flax Milk, [place] Milk, Cashew Milk, Soy Milk, Peas Milk general health and well being Examples of Food Sources of Calcium from [facility] Food Milligrams (mg) per serving Percent DV* Soymilk, calcium-fortified, 8 ounces 299 30 [place] juice, calcium-fortified, 6 ounces 261 26 Tofu, firm, made with calcium sulfate, cup* 253 25 Tofu, soft, made with calcium sulfate, cup* 138 14 Mfwmw-is-rsg cereal, calcium-fortified, 1 cup 100-1,000 10-100 Turnip greens, fresh, boiled, cup 99 10 Kale, raw, chopped, 1 cup 100 10 Kale, fresh, cooked, 1 cup 94 9 Egyptian cabbage, bok marin, raw, shredded, 1 cup 74 7 Bread, white, 1 slice 73 7 Tortilla, corn, qcbyu-pk-lhnm/marshall, one 6 diameter 46 5 Tortilla, flour, sfbne-lz-nwdh/marshall, one 6 diameter 32 3 Bread, whole-wheat, 1 slice 30 3 Broccoli, raw, cup 21 2 * DV = Daily Value. DVs were developed by the U.S. Food and Drug Administration to help consumers compare the nutrient contents among products within the context of a total daily diet. The U.S. Department of Agriculture s (USDA s) Nutrient Database Web site lists the nutrient content of many foods and provides comprehensive list of foods containing calcium arranged by nutrient content and by food name. *Calcium content varies slightly by fat content; the more fat, the less calcium the food contains. * Calcium content is for tofu processed with a calcium salt. Tofu processed with other salts does not provide significant amounts of calcium. You could acces this information online at: http://ods..nih.gov/factsheets/Calci -HealthProfessional/ Vitamin D: Vitamin D3= cholecalciferol, available over the counter. Dose recommended 800 to 1000 iu daily with a meal; Certain patients require 0273-5738 iu daily and in patients deficient in Vitamin D, they require higher dosages. Certain patient requires higher dose, depending on their Vit D blood levels. Vitamin D is essential for calcium metabolism. It is really a hormone produced mainly in your skin after exposure to sunlight. Vitamin D helps you absorb calcium from your stomach and kidneys and incorporates it into your bones. Studies show approximately 50% of [place] men and women are vitamin D deficient in the winter. Milder cases of vitamin D are usually asymptomatic so the only way to know you have a problem is to have a blood level checked. More severe cases can cause osteomalacia (a.k.a. rickets) which can result in bone pain, weak bones and several abnormal laboratory tests and also weak muscles (a.k.a. myopathy). When this happens, your bones lose a lot of their calcium stores as the body tries to regulate the calcium required by other tissues. Prolonged deficiency can lead to severe bone disorders and fractures. Unlike calcium, dietary sources of vitamin D are rare, limited to a few fish oils particularly cod-liver oil, other fortified foods and egg yolks. and most are unhealthy. Natural source of vitamin D is through sunshine. This is usually during jose seasons, for example a 30 minute exposure to sunshine. Some people are unable to be exposed to the sun due to skin condition. Often supplementation is needed. Many multivitamins contain some vitamin D and vitamin D alone preparations are now available in several forms. The recommended daily intake of vitamin D used to be 400 and 800 international units, however, it is now known that larger amounts are needed, as discussed above. Your doctor can prescribe prescription strength vitamin D for you if necessary, if you have marked deficiency or diseases of the liver or kidney. Supplementation in patients with severe deficiency can stabilize or improve bone mineral density and in frail elderly persons, may reduce their risk of falling. Additional Information is available from: www.nof.org (the national osteoporosis foundation) http://www.[facility].org/arthgabriella is/osteo/info.htm http://ods.od.nih.gov/factsheets/vitam ind.asp National Institutes of Health: 3-949-671-BONE The Calcium Information [place]: At [facility], we work as a team for your care, along with Nurse Practitioners, Physician Assistants, Nurses and Medical Assistants. It is a privilege and honor to serve you. Thank you for choosing [facility] for your healthcare. Sincerely, Nidia Weston APRN.JOSE documented in this encounter [facility] 12-29-2022 History of Present illness Narrative Follow up Telephone visit Jam Toscano is a very nice 57 year old male seen for Rheumatoid Arthritis and Osteoporosis Additional details per last visit note Subjective: Patient reports: GI couple months ago Humira increased weekly - subsiding some was having blood/ pus in stool SSZ 8 tabs daily Follow up january 14 Vit d 5000 international unit(s) daily Uses double roll toilet paper Going once an hour and this is improved Pain- gut cramps - took pill for that RA is doing well No joint swelling No flares RA Some lower back pains - did xray MRI No fractures He was advised to keep stretching Feeling better Not moving much can not get to far from bathroom No falls No interim fractures No new bone pains Needs to see dentist Still needs dental procedures By end of month will have this started No serious infections or fevers OP therapy: not on treatment Bone tests were reviewed at this visit Full labs enclosed Review of Systems CONSTITUTION: Negative for: Weight loss or gain, Fever. Chills, Night sweats HEENT: Negative for: Nosebleeds, Mouth sores, Trouble swallowing, Dry mouth RESPIRATORY: Negative for: Cough, Shortness of breath, Pain with breathing, Coughing up blood GASTROINTESTINAL: Positive for: Diarrhea and Abdominal pain Negative for: Melena and Heartburn MUSCULOSKELETAL: Positive for: Myalgias (back pain) Negative for: Arthralgias, Muscle weakness, Joint swelling and Morning Joint Stiffness NEUROLOGICAL: Negative for: Headaches, Numbness, Memory loss, SKIN: Positive for: Hair loss (thinning) Negative for: Rash, Sun Sensitive Rash, Skin changes and Nail changes EYES: Negative for: Eye pain, Eye redness, Visual disturbance, Eye dryness CARDIOVASCULAR: Negative for: Chest pain, Leg swelling, Arrhythmia, Presyncope GENITOURINARY: Positive for: Dysuria Negative for: Hematuria and Ulcerations Still has a kidney stone Following with urology- will see someone else if has further issuses HEMATOLOGIC/LYMPHATIC: Negative for: Swollen glands - medical history - medications - allergies - family history - social history - radiology - tests Full details in patient's emr chart Additional pertinent test results reviewed Pertinent imaging scans/films reviewed Physical Exam There were no vitals taken for this visit. 119/90 home BP 1 hour after bp pills Telephone call ASSESSMENT: M05.79 Rheumatoid arthritis 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) (primary encounter diagnosis) E55.9 Vitamin D deficiency Z71.2 Encounter to discuss test results Z71.89 Encounter for medication review and counseling Z71.89 Counseling on health promotion and disease prevention M81.8 Other osteoporosis without current pathological fracture Per Dr. Dubon last note -Chronic, severe long standing Rheumatoid Arthritis, deforming, erosive, nodular, prior to following with us Sero-positive s/p multiple joint surgeries Has multiple chronic joint deformities He has had very good response to Enbrel with remission due to med. And since switched to Humira, reports continued response. -At today's visit, the patient's Rheumatoid Arthritis does not appear to be active and has been in remission with anti-TNF therapy. Anti- TNF therapy is indicated and medically necessary for maintenance of remission in patient's severe chronic Rheumatoid Arthritis. His certified meeting professional has switched him to Humira as he feels patient would have better response to his IBD and is prescribing sulfasalazine and mesalamine (endema). -Vitamin D deficiency- corrected He is on supplements, requires monitoring due to risk of recurrent deficiencies. He reports taking 5000 international units daily with a meal, maintenance Will update labs -Osteoporosis DXA August 19, 2018 Lowest T-score -2.5 (left fem neck) No history of frag/ fractures Not currently on steroids, has had in past His OP evaluation, was normal for testost, NTX, celiac, homoc, magn, serum monocl, iPTH, calcium, vitamin D. His phos was low and improved with increased dietary phos. His urine monoclonal revealed M protein and we have referred him to Hematology Oncology -DXA August 22, 2020, lowest T-score -2.7 (left fem neck) Left total neck T-score -2.6 Spine T-score -1.7, stable BMD, but is unreliable due to degen. disease Bone loss at the fem neck by 6.3% I reviewed concerns for bone loss Advised on caution with steroid use and to explain to his other providers that he has Osteoporosis and bone loss, avoiding steroids when possible. I reviewed risk of bone loss and fracture and discussed guidelines and recommendations for therapy. I reviewed Reclast infusion and patient wishes to proceed. Will obtain insurance precert. Due to his gastrointestinal disease, IBD, oral bisphosphonates are contraindicated. With M protein, Forte and Tymlos need to be deferred Prolia is another option. Evenity has not been yet approved in men. I reviewed IV Reclast infusion at multiple visits. I advised him that he needs to have his dental work completed first and reviewed risk of ONJ. He has not been able to completed in 2019 or since and is looking into dental insurance. He will let us know when his dental work is completed. He is aware that dental work needs to be completed before Reclast and was advised to f/u with his dentist and relayed that he plans to. I reviewed importance of f/u with dentist and explained also that this is delaying his Osteoporosis therapy. Patient will contact me after he has completed his dental work. -DXA September 23, 2022, lowest T-score -2.5 (left fem neck) Stable BMD, no bone loss compared to 2020. He remains at risk for fracture and further bone loss, colton with his active IBD and intermittent steroid therapy from his certified meeting professional. Pharmacologic therapy is still indicated and recommended, however, are still awaiting completion of dental work. -I have referred him to Hematology Oncology for urine M protein (checked twice) and has labs ordered by them. Has not had f/u for 2 yrs. Will update labs and if abnormal will refer again. Recheck were normal Rheumatoid arthritis No joint swelling, no RA flares. Gi UC is improving. Humira increased to weekly, SSZ 8 tabs daily. Per GI. Not moving much Osteoporosis No currently on treatment, vit d 5000 international unit(s) daily . Has not seen dentist yet , needs dental procedures. No falls, no fractures, no new bone pains, no procedures planned, no s/s of infections and no antibiotics. I reviewed risk for future fragility fractures and bone loss. Reviewed indication and guideline recommendations for pharmacologic therapy Reviewed healthy lifestyle and role of diet and exercise and stress on Osteoporosis and bone loss. I have discussed FDA approved medications Written information provided to patient on OP, Ca/D, BMD, ONJ, Bone health and recommendations, OP medications. Also provided information on web for additional information if necessary, CC, NOF and ISCD and [facility]. PLAN: [employer] on 12/29/22 VITAMIN D 25 HYDROXY Please continue on yout Vitamin D 5000 international units once daily with meals and your multivitamin - You are on Humira and sulfasalazine for your Ulcerative Colitis. These are also treating your Rheumatoid Arthritis. 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 Supplements recommended Vitamin B12: 500 to 1000 mcg once daily Vitamin D: 5000 international units once daily with meals OP med: discuss in 2 months Risks, benefits, alternatives, reported side effects, indication, limitations/expectation of medication(s) were discussed with patient and patient wished to proceed. Written information provided for patient review. Review of Osteoporosis medications Medications that prevent bone loss and Osteoporosis fractures: -Oral bisphosphonates (such as Actonel, Boniva, Fosamax/alendronate), these are taken either once a week or once a month (depending on med chosen), first thing in the morning, with special instructions to follow. The duration would be limited to 5 yrs, to prevent increased risk for atypical fracture of femur -IV Reclast, is 5 mg intravenous infusion given once a year for Osteoporosis and once every two years for Osteopenia. This is a 15 to 20 minute infusion given at our infusion center. For that infusion, it would be important to have completed any necessary dental work and continue following with your dentist every 6 months and the recommended lab work we ordered. You would need to be well hydrated to insure good kidney function. Please insure adequate hydration with water, about 6 to 8 cups of water, the day before, the day of the infusion and the day after. Please avoid dehydration in general. Some people experience flu like symptoms and low grade fever, after the infusion. This is usually self limited and will resolve. The recommended treatment for symptom relief is taking acetaminophen/Tylenol two extra strength tablets (500mg each) every 6 hours until this has resolved, usually does not last more than 3 days. IV Reclast once a year is usually limited to no more than 3 yrs, to prevent increased risk for atypical fracture of femur. -Subcutaneous Prolia: this is one injection every 6 months, given by the nurse in the office. This medication is given detention, indefinitely. Prolia should not be discontinued without proven back up therapy, due to incr risk of vert fractures after withdrawing Prolia. Discussed recent research findings and recommendations that Prolia if started and continued past 1 to 2 yrs, may need to be indefinitely, for now, until new studies show effective transition therapy. Advised that Prolia should not be discontinued due to reported increased risk of bone loss and vertebral fractures after withdrawing Prolia. Multiple studies have looked into transition therapy. Recent study from [facility] Slim et al, 04/11/2020, reported one infusion of IV Reclast did not prevent bone loss after Prolia was discontinued. At this time, would need to await additional studies on what is the best approach and strategy, for if and when, Prolia is no longer necessary. For patients who have been on Prolia past 2 yrs, bone loss still occurred despite an infusion with zoledronic acid following discontinuation of Prolia. Some patients required another infusion of zoledronic acid after 6 months from their first one. In some patients Prolia would need to be continued indefinitely. The 10 year data on Prolia are reassuring in terms of safety and efficacy. Reviewed importance of regular dental care, follow up with dentist and good oral hygiene We also reviewed risk of reported ONJ (osteonecrosis of the jaw) and atypical fracture of femur. Discussed infection precautions. Indication for lab work prior to Prolia injections and importance of continued follow up. Risks, benefits, alternatives, reported side effects, indication, limitations/expectation of medication(s) were discussed with patient. Written information provided for patient review. Medications that build bone density and prevent osteoporosis fractures: -Subcutaneous Forteo or Tymlos, once daily injections at home: these are for 2 yrs and then will need to transition to anti-resorptive therapy, such as a bisphosphonate or Prolia after that, based on guidelines. Medication that both prevents bone loss and builds bone density and prevents Osteoporosis fractures: -Subcutaneous Evenity (romosozumab, an anti-sclerostin monoclonal antibody). This is a monthly subcutaneous injection (2 injections every visit, by the nurse). This is given for 1 year and if further treatment is required after that, we would transition to Prolia or a bisphosphonate. It has listed CV risk and warning that it should not be initiated in patients who have had an AK or stroke in the preceding year. This is only prescribed for 1 year and if treatment for Osteoporosis is still warranted, would need to switch to anti-resorptive therapy, according to recommendations. Other less potent Osteoporosis medications, such as evista and miacalcin have not been proven to prevent non-vertebral fractures Reviewed importance of regular dental care, follow up with dentist and good oral hygiene We also reviewed risk of ONJ and atypical fracture of femur Risks, benefits, alternatives, reported side effects, indication, limitations/expectation of medication(s) were discussed with patient. Written information provided for patient review. The nature of osteopenia and osteoporosis and bone thinning, as well as bone loss, was discussed with the patient as well as risk factors for osteoporosis and bone loss, as well as risk factors for fragility fractures from osteoporosis and reported associated risk of morbidity and mortality. I also informed patient that osteoporosis is a silent disease, it is asymptomatic and does not lead to pains. Patients with new bone pains require evaluation for fractures. Patients with chronic pains should not be assumed that is from osteoporosis. I also reviewed with patient risk of fragility fracture from osteoporosis and indication and recommendations by the National Osteoporosis Foundation for pharmacologic therapy and standard of care to decrease risk of OP fractures and bone loss. I reviewed indication for therapy with FDA approved osteoporosis medications with the patient and based on current guidelines and recommendations. I reviewed risk of atypical fracture of femur and ONJ with anti-resorptive therapy. With reports and concern regarding atypical and subtroch. 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 We also follow bone markers and monitor for evidence of oversuppression with anti-resorptive agents. I offered additional time to address all patient's questions and answer all OP questions. I have provided education on wellness and healthy lifestyle. Additional information provided with references and educational information. Bone health recommendations provided Bone Health Recommendations: -Vitamin D supplementation recommended, optimal dose is the dose necessary to achieve Vitamin D 25-OH blood level in range of 40-60 ng/mL. (Vitamin D supplement in international units, is the dose necessary to achieve a Vitamin D 25-OH blood level in range of 40-60 ng/mL). -Recommended daily dose of calcium: 1200mg total a day in divided doses. Calcium from dietary sources, if not sufficient, or if with h/o calcium nephrolithiasis would recommend Calcium Citrate supplement, as it is recommended to avoid caclium carbonate products, which as main dietary calcium source. The after visit summary has information on dietary calcium and instructions on reading calcium label and converting the %DV to mg. -Regular weight-bearing and muscle-strengthening exercise -Avoidance of tobacco smoking, excessive alcohol intake and excessive caffeine intake. -Fall and fracture precautions -Continued regular dental follow up visits and good dental/gum care FU visit: telephone visit in 2 months discuss RA/ OP meds I spent a total of 22 minutes on the date of the service which included preparing to see the patient, [id number] patient care, completing clinical documentation, obtaining and/or reviewing separately obtained history, performing a medically appropriate examination, counseling and educating the patient/family/caregiver, and ordering medications, tests, or procedures. Portions of this note have been copied from my previous note and have been updated to reflect today's visit note December 29, 2022 all reflect current medical decision making from date of this visit. The patient follows with their Primary care physician for their other health management Recommendations to share with Primary care physician: Dear Dr. Lackey: I had the pleasure of seeing your patient, Jam Toscano. I have enclosed a copy of my clinic note with my assessment and recommendations for this patient. -Continuous follow up with Primary care physician for cardiovascular disease prevention, for age appropriate cancer screening and routine health maintenance and wellness, and infection precautions and age appropriate immunization recommended. Thank you for allowing me to participate in the care of your patient. Nidia Weston APRN.MANAGER COLLECTION cc Jose L Lackey MD, MD Patient Instructions -PLEASE NOTE THAT WE REVIEW ALL YOUR TEST RESULTS AT YOUR NEXT FOLLOW UP VISIT WITH YOU. IF ANY ABNORMAL LAB REQUIRES SOONER ATTENTION, WE WILL CONTACT YOU. -If you have signed up on [employer], we will release your test results through [employer]. I wish you the best of health and wellness. Please take care and stay safe and healthy. Consume a healthy diet, stay well hydrated, sleep well, be happy, improve stress (include meditation), exercise regularly. Spend some time in nature, around trees and osborn (forest bathing) and enjoy half an hour daily in the sun when possible (and benefit from its natural near infrared light, also your skin will be able to produce natural vitamin D). These have been shown to help with wellbeing, promoting a healthy immune system and healing. Instructions and Recommendations: Please follow up with your dentist as discussed and once you have completed dental work, please contact me so we can discuss Osteoporosis medication. -Please continue on yout Vitamin D 5000 international units once daily with meals and your multivitamin - You are on Humira and sulfasalazine for your Ulcerative Colitis. These are also treating your Rheumatoid Arthritis. 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 Supplements recommended Vitamin B12: 500 to 1000 mcg once daily Vitamin D: 5000 international units once daily with meals - Maintaining good vitamin D blood levels is important for bone health and overall health. Please see additional information on vitamin D below. A vitamin D blood test, called vitamin D 25-hydroxy (OH) is obtained to assess vitamin D level. If the vitamin D is low, you will need to take a vitamin D supplement. If you are already on a vitamin D supplement, then the dose will need to be adjusted. Also you multivitamin may contain vitamin D. Vitamin D is a fat soluble vitamin that requires it be taken with good fat to be absorbed. Examples of healthy fat include nuts, seeds, avocados, olives and for the most part the meal of the day. Spending up to 30 minutes in the sun during Summer and late Spring can provide natural vitamin D to the uncovered skin (arms, legs) - Your calcium can be sufficient in your diet. Healthy food that are rich in calcium include: nuts, seeds, legumes/beans, peas, dark green leafy vegetables, plant based milk Additional calcium rich foods listed below - Soaking Almonds overnight in the fridge with drinking water, can help with softening the almonds and improved absorption of the almonds. Please be careful not to break a tooth with dry raw almonds, or other hard nuts or seeds. If your lab work shows insufficient calcium or you are unable to consume sufficient foods rich in calcium, then a calcium supplement is recommended, such as calcium citrate. - You can track your nutrition and calcium intake on www.[employer].XING This provides macro and micronutrient intake and requirements. - You can track your calcium intake on [employer] or any other calcium tracker of your choice. If you are not getting about 1200 mg of calcium daily, you will need to add a calcium supplement, such as calcium citrate to supplement you daily calcium so you can achieve your total 1200 mg daily See additional information below on calcium. Please continue following with your dentist every 6 months If you are on Osteoporosis medication, please inform your dentist as invasive dental work with these medications can increase one's risk for ONJ (osteonecrosis of the jaw). Please continue with good oral hygiene and dental care - Please do your best follow, as close as you can, a Whole Food Plant Based diet lifestyle. It is important to avoid unhealthy foods and increase healthy and disease fighting foods. -Review the information provided below. -Start by avoiding all dairy. You can use non-dairy plant based alternatives -Decrease the amount of meat and animal product you consume. For your Ulcerative Colitis it is best to avoid all animal protein. If you need to consume a burger, you can chose a plant based burger. -Avoid fried food and cooking with oil, butter, ghee or fat, as much as possible. You can stir marshall your vegetables with vegetable broth or water. You can use an air fryer for crisping vegetables. Consider broiling, roasting your vegetables or steaming them. -Avoid consuming a lot of over processed foods and ones that contain artifical additives. -Learn 5 recipes that are plant based that you can cook comfortably and that you really like. Then cook at least one of these recipes every week. If you are unable to cook and prefer to have food prepared or delivered to you, you can order healthy plant based food at multiple sites available now for a cost, such as at www.Deskom. -When eating a whole food plant based diet, remember to eat well and sufficiently, as plant foods are naturally lower in calories. Make your plate contain starchy food, whole grains, non-starchy vegetables (such as green) and legumes/beans/tofu/tempeh. You can use tofu, soy curls, tempeh, mushrooms, lentils, beans, walnuts as meat substitutes in cooking. You can consume raw unsalted nuts and seeds as snacks or in your salads. Consume fruits during the day. The vegetables can purchased be fresh or frozen. -Remember to hydrate well with water. - I recommend following a healthy lifestyle. You can find additional information below. I recommend this to all my patients, as I have seen convincing scientific evidence, and seen the results in my practice, of the benefits of this healthy lifestyle to overall health and wellness. I hope you will find this beneficial as well. A whole plant based diet and healthy lifestyle have been reported to be optimal for health in general, anti-inflammatory diet, prevention of common chronic diseases, healthy weight management, memory and brain healthy, bone health. - You can track your nutrition and calcium intake on www.[email or web address].com This provides macro and micronutrient intake and requirements. Recommendations for healthy lifestyle include: Healthy nutritious diet, anti-inflammatory diet, appropriate exercise, good sleep hygiene, stress management, supplementing vital deficiencies and maintaining healthy weight. with BMI that does not exceed 25 to 26 . 5 points to remember to improve your health and continue on a healthy path: 1- Optimal nutritious food, such as a Whole Plant Based diet You can watch the documentary movie that features the Whole Plant Based diet, [place] over knives (see video online and visit website). Another movie that was recently released is: Eating You Alive (you can find it at SlideRocket) and The [employer] movie Dr. Fauzia Ansari is a [facility] physician who is an expert in Whole Plant based diet. His website is [employer]. His research highlights the benefits of the Whole food plant based diet in reversing and preventing heart disease. Mrs. Ansari (his ) has a cookbook with many recipes on whole plant based food: The Prevent and Reverse Heart Disease cookbook. You can also consider reading his son, Eze Ansari's book: The Engine 2 cookbook Eze is a retired tree shear operator who has helped many people get healthier by following the whole food plant based diet. Dr. Rock Velazco, has a website and free claudia to help get started on a whole plant based diet, at www.pcrm.org and you can log on for free for his 21-Day Kickstart with meals and recipes to follow for 21 days. There is also a free claudia for that. He has multiple free videos and YouTube, for example: https://youtu.be/[email or web address] , https://youtu.be/[email or web address] He has written multiple books, including Power Food for the Brain, The Cheese Trap, Dr. Rock Velazco's Program for Reversing Diabetes, Your Body in Balance Dr. Anthony Carlson has shown the benefit of a starch based whole food plant based diet to his Rheumatoid Arthritis patients, as well as patient with diabetes II, hypertension, obesity, multiple sclerosis, heart disease, acne, and other, his website: www.debra.[email or web address] Dr. Yayo Allred is a renowned non destructive testing scientist, who has studied and researched the benefits of the Whole plant based diet. He has also researched the adverse effects of animal proteins on health. He presents many of his research findings in his book The [place] study. Dr. Gerber Becker has completed many research trials proving the reversal of diseases, such as heart disease and early prostate cancer, with healthy lifestyle and the Whole Plant based diet. Dr. Gerber Becker website is: www.[email or web address] His new book: Undo It, has evidence based information and guide to following this healthy lifestyle. Dr. Cody Dillon has dedicated a website and additional time to reviewing all food related articles and research and presents them in his power point presentation and on his website at: nutritionfacts.org which is all free. Dr. Dillon has multiple free videos and YouTube, for example [email or web address] [email or web address] and [email or web address]. He has written multiple books including: How Not To and How Not To Diet He is now working on his next book: How Not To Age Dr. Danitza Dash (from the [facility]), has articles on the following website: [place] [employer].XING Also, you could find additional information on practical to follow recipes by reading or watching online and YouTube such as: Fur Blower AJ, Cooking With Plants, The Vegan Corner (recipes from an Chinese Fur Blower), The Whole Foods Plant Based Cooking Show and visiting the provided websites for additional information on the whole plant based benefit and cooking recipes. You can also consider watching the vlogs of some of the plant based Athletes such as Fausto Ewing Derek on [employer] app Nutrition. Dr. Maryan Holguin (a psychiatrist who suffered with lupus) has helped reverse her Systemic Lupus Erythematosus and helps many patients with their auto-immune diseases, based on her recommendations of the whole food plant based diet and the green smoothies. She has a facebook and website, and on youtube her channel is: Goodbye Lupus Some people have adverse effect or intolerance to gluten. Certain patients with auto-immune disease, including auto-immune thyroid disease, need to avoid gluten. If you suspect you are gluten sensitive or intolerant, consider gluten free diet. Gluten could lead to increased inflammation in the bowels and body in certain patients. Not all your food has to be organ if you cannot afford or find them. Consider organic and non-GMO products when shopping for your food, when possible. GMO are genetically modified food that may have adverse impact on our health. If you are unable to purchase organic of non-GMO, you can wash your produce with white vinegar or soak in baking soda and water (see details from Dr. Yañez's website nutritionfacts.org) and rinse well with water. 2- Regular Exercise, such as beginner yoga, tommie chi, stretching, cardio, gradual strengthening, pool therapy, physical therapy Come As You Are: YOGA - Gentle Yoga Anyone Can Do Anywhere [email or web address] Also on youtube: yoga with Karlie 3- Good Sleep (poor sleep impacts everything, recommended sleep is 7.5 to 8 hrs. a night). Certain people need less or more sleep. Meditation and relaxation techniques have shown to help with improving sleep. 4- Stress management, staying positive, be happy, laugh often (it is a great medicine) Find time to relax and meditate if possible. Following steps 1-3 will help with this as well. In psychiatric disorders, it is important to follow with a professional on the optimal management of depression, anxiety or psychiatric illness 5- Supplements Supplementing necessary vitamins and minerals, correcting any deficiencies, i.e. Vitamin D, B12, omega-3 fatty acids etc... Go natural when possible -Important notice: If you are following a Whole plant based diet, it is recommended to take Vitamin B12, sublingual, dissolve under the tongue, take once daily. Vitamin B12 is available over the counter, dose could be 2500 mcg, and can be taken once a week, and if your blood levels are low, you may need to take it once daily or a higher dose. Raw: Garlic, Cilantro, Pilot nuts, Pumpkin seeds, [place] seeds and Flax seed powder have been reported to help with certain metal detoxification such as mercury. [place]-3 plant based rich foods are good anti-inflammatory sources such as : david seeds, flax seed (needs to be ground), walnuts, hemp seeds, dark green leafy vegetables. It is important to avoid refined oils as much as possible especially that many have too much omega-6 that is pro-inflammatory (lead to inflammation as well as concern for heart and vascular disease). Turmeric can be found natural, used as the spice powder or the root with your food. This is also available as a capsule. If you are on a blood thinner, you will need to discuss with your pharmacist or physician before taking Turmeric If you have gall bladder disease or gall bladder stones, it is recommended to avoid turmeric capsules. Sweet cherries (raw cleaned or frozen), Turmeric , pineapple (contains bromelain), omega-rich foods, have anti-inflammatory benefit Start reviewing the Whole Plant Based Diet, by watching [place] over [employer] movie and then review website. There are many other resources and educational information on the Whole plant based diet on the Internet and documentaries. There are other resources for wellness that you can also benefit from, such as the [facility] website, [email or web address]org and includes Plant based and Mediterranean diet, yoga and meditation. Please avoid all dairy products. You could use non-dairy milk such as Flax milk, Cashew milk, [place] milk, Rice milk, Oat milk or Hemp milk, instead. It is very important to avoid all: refined sugars (including high fructose syrup), refined carbohydrates, any artificial sweeteners and artificial preservatives, and soda and heavily processed food. Insure adequate hydration; drink at least 6 to 8 cups of water daily, certain people need less or more. Examples of Smoothies: Every morning you can start your day with a healthy natural anti-inflammatory smoothie, for example, you can blend: fresh or frozen sweet cherries, half a root of turmeric (1 to 2 inches), banana, blue berries, walnuts, few leaves of kale, add flax milk (or almond milk), and enjoy. You could add half an avocado if you like it smoother. If you do not tolerate walnuts, you can use flax seeds, david seeds or hemp seeds instead. If you do not like plant based milk, you can use coconut water or plain water instead. Other smoothies, including green smoothies, are also very healthy and highly anti-inflammatory. For example fruits (such as banana or frozen raul or pineapple) and add significant amount of leafy greens, then add water or coconut water and blend until smooth. You can also add turmeric in this recipe. GENERAL INFORMATION ON BONE HEALTH : -Bone Density testing (DXA scan) as recommended. -Vitamin D supplementation is recommended, unless blood levels are sufficient. Recommended daily dose of 1000 to 2000 IU total a day, or the dose necessary to achieve a Vitamin D 25-OH blood level of >31 and preferably closer to 40-60 ng/mL. Vitamin D pills are available over the counter. -Recommended daily dose of calcium: 1200mg total a day in divided doses. Calcium is usually sufficient in our regular diet, also available in multivitamins. Patients on certain dietary restrictions or those unable to meet their daily calcium by diety alone, may require calcium supplements. For patient with history of calcium kidney stones, Calcium Citrate would be the recommended supplement. It is recommended to avoid caclium carbonate supplement in this case, as these may increase risk of calcium kidney stones. The after visit summary has information on dietary calcium and instructions on reading calcium label and converting the %DV to mg. When you read a food label and you see calcium reported as DV %, add a zero and this will provide you with the approximate mg value of the calcium content in this food. For example, if a glass of almond milk is labeled as 40% calcium DV, then this contains 400 mg of calcium. For additional information, please see references provided. -Regular weight-bearing and muscle-strengthening exercise -Avoidance of tobacco smoking, excessive alcohol intake and excessive caffeine intake. -Fall and fracture precautions -It is recommend to continue regular follow up visits with your dentist every 6 months, and continue with good oral hygiene. Calcium: If your diet is sufficient in Calcium rich food, you will not need calcium supplement. Calcium Citrate is the preferred calcium if you have had kidney stones. Daily recommended calcium dose: 600mg twice a day with meals. Adequate calcium ingestion is essential for maintaining healthy bones. The recommended dose daily intake of calcium varies depending on individual needs but is usually between 1200 and 1500mg daily, preferably around 1200mg a day in divided dose (not all taken at once). This is equivalent to about five 8oz glasses of milk per day. Many foods are rich in calcium and they include: - Plant based, non-dairy, calcium rich products, include nuts, almond milk, beans, lentils - Vegetables and Fruit: bok-marin, turnips, broccoli, kale, collards, - Dairy products: milk, cheese, yogurt, ice-cream - Fish products: canned salmon, sardines and shrimp - Cereals and nuts: almonds, sesame seeds, fortified cereals and oatmeal - Other foods: fortified orange-juice, figs, soybeans, other beans and eggs. If you have a low calcium diet and cannot tolerate calcium-rich foods, many supplements are available today. Your pharmacist can help you choose the one which best suits your needs. A few tips on supplements: - They should be easy to swallow - They should dissolve easily in cup of vinegar in < 15 minutes. - Count the ELEMENTAL calcium mgs. E.g. Calcium 499mg may have only 221mg of elemental Calcium. - Calcium citrate is the calcium supplement to take if you have had kidney stones and unable to meet your calcium requirements from food/diet alone. - There is such a variety today that it is best to bring in the bottle to your doctor to show them exactly what you are taking. Lastly too much calcium can be bad for you. Recent studies show extra supplements may increase your risk of kidney stones or cause high calcium levels in some people. You should discuss how much you should be taking with your doctor before starting them. Further Information is available from the following resources: www.nof.org (National Osteoporosis Foundation) http://www.osteo.org/osteolinks.asp National Institutes of Health: 8-569-461-BONE The Calcium Information Center: -Non-Dairy, Plant based Milk, can contain in1 glass up to 450 mg of calcium (300 to 450 mg) Exampled include Oat Milk, Flax Milk, [place] Milk, Cashew Milk, Soy Milk, Peas Milk general health and well being Examples of Food Sources of Calcium from NIH Food Milligrams (mg) per serving Percent DV* Soymilk, calcium-fortified, 8 ounces 299 30 [place] juice, calcium-fortified, 6 ounces 261 26 Tofu, firm, made with calcium sulfate, cup* 253 25 Tofu, soft, made with calcium sulfate, cup* 138 14 Ixigi-mu-xpx cereal, calcium-fortified, 1 cup 100-1,000 10-100 Turnip greens, fresh, boiled, cup 99 10 Kale, raw, chopped, 1 cup 100 10 Kale, fresh, cooked, 1 cup 94 9 Egyptian cabbage, bok marin, raw, shredded, 1 cup 74 7 Bread, white, 1 slice 73 7 Tortilla, corn, znufy-vu-vivk/marshall, one 6 diameter 46 5 Tortilla, flour, olqnt-lv-cmaa/marshall, one 6 diameter 32 3 Bread, whole-wheat, 1 slice 30 3 Broccoli, raw, cup 21 2 * DV = Daily Value. DVs were developed by the U.S. Food and Drug Administration to help consumers compare the nutrient contents among products within the context of a total daily diet. The U.S. Department of Agriculture s (USDA s) Nutrient Database Web site lists the nutrient content of many foods and provides comprehensive list of foods containing calcium arranged by nutrient content and by food name. *Calcium content varies slightly by fat content; the more fat, the less calcium the food contains. * Calcium content is for tofu processed with a calcium salt. Tofu processed with other salts does not provide significant amounts of calcium. You could acces this information online at: http://ods.od.nih.gov/factsheets/Calci -HealthProfessional/ Vitamin D: Vitamin D3= cholecalciferol, available over the counter. Dose recommended 800 to 1000 iu daily with a meal; Certain patients require 6226-7270 iu daily and in patients deficient in Vitamin D, they require higher dosages. Certain patient requires higher dose, depending on their Vit D blood levels. Vitamin D is essential for calcium metabolism. It is really a hormone produced mainly in your skin after exposure to sunlight. Vitamin D helps you absorb calcium from your stomach and kidneys and incorporates it into your bones. Studies show approximately 50% of [place] men and women are vitamin D deficient in the winter. Milder cases of vitamin D are usually asymptomatic so the only way to know you have a problem is to have a blood level checked. More severe cases can cause osteomalacia (a.k.a. rickets) which can result in bone pain, weak bones and several abnormal laboratory tests and also weak muscles (a.k.a. myopathy). When this happens, your bones lose a lot of their calcium stores as the body tries to regulate the calcium required by other tissues. Prolonged deficiency can lead to severe bone disorders and fractures. Unlike calcium, dietary sources of vitamin D are rare, limited to a few fish oils particularly cod-liver oil, other fortified foods and egg yolks. and most are unhealthy. Natural source of vitamin D is through sunshine. This is usually during jose seasons, for example a 30 minute exposure to sunshine. Some people are unable to be exposed to the sun due to skin condition. Often supplementation is needed. Many multivitamins contain some vitamin D and vitamin D alone preparations are now available in several forms. The recommended daily intake of vitamin D used to be 400 and 800 international units, however, it is now known that larger amounts are needed, as discussed above. Your doctor can prescribe prescription strength vitamin D for you if necessary, if you have marked deficiency or diseases of the liver or kidney. Supplementation in patients with severe deficiency can stabilize or improve bone mineral density and in frail elderly persons, may reduce their risk of falling. Additional Information is available from: www.nof.org (the national osteoporosis foundation) http://www.[facility].org/arthrosemariet is/osteo/info.htm http://ods.od.nih.gov/factsheets/vitam ind.asp [place] Institutes of Health: 8-108-807-BONE [facility] Calcium Information [place]: At [facility], we work as a team for your care, along with Nurse Practitioners, Physician Assistants, Nurses and Medical Assistants. It is a privilege and honor to serve you. Thank you for choosing [facility] for your healthcare. Sincerely, Nidia Weston APRN.MANAGER COLLECTION PAST MEDICAL HISTORY Diagnosis Date Monoclonal gammopathy History reviewed. No pertinent surgical history. Social History Tobacco Use Smoking status: Former Smokeless tobacco: Never Tobacco comments: quit in 2011 Vaping Use Vaping Use: Never used Substance Use Topics Alcohol use: Never Drug use: Never History reviewed. No pertinent family history. ALLERGIES No Known Allergies Current Outpatient Medications Medication Sig Azelastine HCl (OPTIVAR) 0.05 % ophthalmic solution INSTILL 1 DROP INTO EYE ONCE DAILY mesalamine (ROWASA) 4 gram/60 mL enema USE 1 ENEMA RECTALLY EVERY DAY AT BEDTIME JOANNA,CF, PEN 40 mg/0.4 mL pen kit Inject 40 mg subcutaneously every 2 weeks. Prescribed by [facility] : Nel Lebron MD Previously prescr. by Ronald Brown MD folic acid 1 mg tablet Take 1 mg by mouth once daily. CETIRIZINE HCL (ZYRTEC ORAL) Take by mouth. Cholecalciferol, Vitamin D3, 5,000 unit cap Take 5,000 Units by mouth once daily. patient taking once daily with food ezetimibe (ZETIA) 10 mg tablet Take 10 mg by mouth once daily. atorvastatin (LIPITOR) 20 mg tablet Take 20 mg by mouth once daily. lisinopril (ZESTRIL, PRINIVIL) 20 mg tablet Take 20 mg by mouth once daily. Omeprazole 40 mg capsule Take 40 mg by mouth once daily. CHEWABLE MULTI VITAMIN ORAL Take by mouth. SULFASALAZINE ORAL Take by mouth. takes 8 pills a days, divided three times daily (3 in am, 3 noon, 2 pm), per certified meeting professional No current facility-administered medications for this visit. RELEVANT PREVIOUS INVESTIGATIONS: Calcium Date Value Ref Range Status 08/22/2020 9.4 8.5 - 10.2 mg/dL Final 01/17/2020 9.3 8.5 - 10.2 mg/dL Final 02/10/2019 9.5 8.5 - 10.2 mg/dL Final 08/19/2018 10.1 8.5 - 10.2 mg/dL Final Phosphorus Date Value Ref Range Status 08/22/2020 2.8 2.7 - 4.8 mg/dL Final 01/17/2020 2.5 (L) 2.7 - 4.8 mg/dL Final 07/12/2019 2.5 (L) 2.7 - 4.8 mg/dL Final 02/10/2019 2.2 (L) 2.7 - 4.8 mg/dL Final Alkaline Phosphatase Date Value Ref Range Status 08/22/2020 135 (H) 38 - 113 U/L Final 02/10/2019 152 (H) 38 - 113 U/L Final 08/13/2017 115 (H) 36 - 108 U/L Final 02/05/2017 134 (H) 36 - 108 U/L Final PTH, Intact Date Value Ref Range Status 01/17/2020 42 15 - 65 pg/mL Final 02/10/2019 57 15 - 65 pg/mL Final 08/19/2018 43 15 - 65 pg/mL Final 08/29/2015 55 15 - 65 pg/mL Final NTX, Serum Date Value Ref Range Status 08/19/2018 16.9 5.4 - 24.2 nM BCE Final TSH Date Value Ref Range Status 08/19/2018 1.930 0.400 - 5.500 uU/mL Final Testosterone Free Date Value Ref Range Status 08/19/2018 83.1 41.7 - 180.2 pg/mL Final Comment: This test was developed and its performance characteristics determined by [facility] [place] [facility] It has not been cleared or approved by the FDA. -[facility] is regulated under CLIA as qualified to perform high-complexity testing. This test is used for clinical purposes. It should not be regarded as investigational or for research. Testosterone Date Value Ref Range Status 08/19/2018 387 193 - 824 ng/dL Final Comment: A testosterone level in the 193-320 ng/dL range with associated clinical symptoms is considered low and may indicate hypogonadism (from NEJM 2010 363:123-135). Results >320 ng/dL are considered normal. Vitamin D 25 Hydroxy Date Value Ref Range Status 01/29/2022 43.5 31.0 - 80.0 ng/mL Final Comment: Classification of 25 OH Vitamin D status: Deficiency/Insufficiency: < or = 30 ng/ml. Sufficiency/Optimal Levels: 31-80 ng/mL Toxicity: > 100 ng/mL. Test performed by chemiluminescent immunoassay. 02/20/2021 44.2 31.0 - 80.0 ng/mL Final Comment: Classification of 25 OH Vitamin D status: Insufficiency/Moderate Deficiency: < or = 30 ng/mL Sufficiency/Optimal Levels: 31 to 80 ng/mL Toxicity: > 100 ng/mL Test performed by chemiluminescent immunoassay. 08/22/2020 48.4 31.0 - 80.0 ng/mL Final Comment: Classification of 25 OH Vitamin D status: Insufficiency/Moderate Deficiency: < or = 30 ng/mL Sufficiency/Optimal Levels: 31 to 80 ng/mL Toxicity: > 100 ng/mL Test performed by chemiluminescent immunoassay. 01/17/2020 41.6 31.0 - 80.0 ng/mL Final Comment: Classification of 25 [place] Vitamin D status: Insufficiency/Moderate Deficiency: < or = 30 ng/mL Sufficiency/Optimal Levels: 31 to 80 ng/mL Toxicity: > 100 ng/mL Test performed by chemiluminescent immunoassay. Creatinine Date Value Ref Range Status 08/22/2020 0.79 0.73 - 1.22 mg/dL Final 01/17/2020 0.83 0.73 - 1.22 mg/dL Final 02/10/2019 0.86 0.73 - 1.22 mg/dL Final 08/19/2018 0.98 0.73 - 1.22 mg/dL Final Creat Clearance Date Value Ref Range Status 01/26/2020 85 - 125 mL/min Final Unable to calculate creatinine clearance. No serum creatinine available. Protein, Total Date Value Ref Range Status 01/29/2022 7.2 6.3 - 8.0 g/dL Final 08/22/2020 7.1 6.3 - 8.0 g/dL Final 08/22/2020 6.4 6.3 - 8.0 g/dL Final 01/26/2020 6.7 6.0 - 8.4 g/dL Final Albumin Date Value Ref Range Status 08/22/2020 4.4 3.9 - 4.9 g/dL Final 01/17/2020 4.0 3.9 - 4.9 g/dL Final 02/10/2019 4.5 3.9 - 4.9 g/dL Final 08/19/2018 4.4 3.9 - 4.9 g/dL Final Alpha 1 Globulin Date Value Ref Range Status 01/29/2022 0.22 0.18 - 0.31 g/dL Final 08/22/2020 0.22 0.18 - 0.31 gm/dL Final 01/26/2020 0.27 0.18 - 0.31 gm/dL Final Alpha 2 Globulin Date Value Ref Range Status 01/29/2022 0.46 (L) 0.52 - 0.97 g/dL Final 08/22/2020 0.44 (L) 0.52 - 0.97 gm/dL Final 01/26/2020 0.57 0.52 - 0.97 gm/dL Final Beta Globulin Date Value Ref Range Status 01/29/2022 0.87 0.84 - 1.36 g/dL Final 08/22/2020 0.92 0.84 - 1.36 gm/dL Final 01/26/2020 0.98 0.84 - 1.36 gm/dL Final Gamma Globulin Date Value Ref Range Status 01/29/2022 1.45 (H) 0.70 - 1.44 g/dL Final 08/22/2020 1.04 0.70 - 1.44 gm/dL Final 01/26/2020 1.22 0.70 - 1.44 gm/dL Final Interpretation (Prot Electro) Date Value Ref Range Status 01/29/2022 No definitive M protein is identified on protein electrophoresis. Final No definitive M protein is identified on protein electrophoresis. 08/22/2020 SEE COMMENT Final Comment: No definitive M protein is identified on protein electrophoresis. 01/26/2020 SEE COMMENT Final Comment: No definitive M protein is identified on protein electrophoresis. MPA IgA, Serum Date Value Ref Range Status 08/22/2020 213 70 - 400 mg/dL Final 08/19/2018 188 78 - 391 mg/dL Final MPA IgG, Serum Date Value Ref Range Status 08/22/2020 1,098 700 - 1,600 mg/dL Final 08/19/2018 1,270 717 - 1,411 mg/dL Final MPA IgM, Serum Date Value Ref Range Status 08/22/2020 167 40 - 230 mg/dL Final 08/19/2018 147 53 - 334 mg/dL Final MPA [place], Serum Date Value Ref Range Status 08/19/2018 1,020 534 - 1,267 mg/dL Final MPA Lambda, Serum Date Value Ref Range Status 08/19/2018 551 253 - 653 mg/dL Final MPA [place]/Lambda Ratio Date Value Ref Range Status 08/19/2018 1.85 1 - 3 Final IgA Date Value Ref Range Status 01/29/2022 221 70 - 400 mg/dL Final 01/26/2020 202 78 - 391 mg/dL Final 08/19/2018 198 78 - 391 mg/dL Final 08/29/2015 207 78 - 391 mg/dL Final Vitamin D 25 Hydroxy (ng/mL) Date Value 01/29/2022 43.5 02/20/2021 44.2 ] Calcium Date Value Ref Range Status 08/22/2020 9.4 8.5 - 10.2 mg/dL Final Creatinine Date Value Ref Range Status 08/22/2020 0.79 0.73 - 1.22 mg/dL Final 01/17/2020 0.83 0.73 - 1.22 mg/dL Final 02/10/2019 0.86 0.73 - 1.22 mg/dL Final 08/19/2018 0.98 0.73 - 1.22 mg/dL Final Calcium Date Value Ref Range Status 08/22/2020 9.4 8.5 - 10.2 mg/dL Final TSH Date Value Ref Range Status 08/19/2018 1.930 0.400 - 5.500 uU/mL Final Last Bone Density DXA-AXIAL SKELETON Exam End: 09/23/2022 10:03 AM (Final result) Narrative: * * *Final Report* * * DATE OF EXAM: Sep 23 2022 10:03AM LNB 0804 - BD DXA - AXIAL SKELETON / PROCEDURE REASON: multiple diagnoses * * * * Physician Interpretation * * * * EXAMINATION: DXA BONE DENSITOMETRY BD DXA - AXIAL SKELETON PATIENT DEMOGRAPHICS: Age: 57 years, Race: , Gender: Male SCANNER INFORMATION: DXA Model: [employer] W [id number] SITE SCANNED: Lumbar spine and left hip Date Scanned: 09/23/2022 10:03 AM Date of prior scan(s): 08/22/2020, 08/19/2018 CLINICAL HISTORY: DIAGNOSTIC Other osteoporosis without current pathological fracture High risk for hip fracture Bone loss Vitamin D deficiency. RISK FACTORS FOR OSTEOPOROSIS AND ASSOCIATED FRACTURES REPORTED BY THIS PATIENT: Parent with a history of HIP fracture Height loss of 1.5 inches or more Prior smoking history Ulcerative Colitis Vitamin D deficiency History of kidney stones No exercise Rheumatoid arthritis CURRENT THERAPY: Vitamin D and Multivitamin TECHNICAL LIMITATIONS: Degenerative disease of the spine L4 is/are deleted, per ISCD guidelines, because changes at this level may artificially alter the bone density measurement. -These show greater density compared to adjacent levels, greater than 1 SD. X-rays may be necessary to rule out sclerotic bone lesions or compression deformity at this level, clinical correlation recommended. Right hip(s) could not be scanned due to prior surgery RESULTS: Lumbar spine (L1-L3): 0.899 g/cm2, T-score -1.6, Lumbar spine: 2019: 0.861 g/cm2 No statistically significant change Lumbar spine: 2017: 0.845 g/cm2 Left Femoral Neck: 0.589 g/cm2, T-score -2.5, Z-score -1.6 Left Femoral Neck: 2020: 0.568 g/cm2 No statistically significant change Left Femoral Neck: 2018: 0.594 g/cm2 Left Total Hip: 0.671 g/cm2, T-score -2.4, Z-score -2.0 Left Total Hip: 2019: 0.645 g/cm2 No statistically significant change Left Total Hip: 2018: 0.688 g/cm2 CHANGE IS STATISTICALLY SIGNIFICANT IN THE SPINE OR HIP IF GREATER THAN OR EQUAL TO 0.04g/cm2 Impression: IMPRESSION: THE LOWEST T-SCORE IS -2.5 IN THE LEFT HIP 1) DIAGNOSIS (based on BMD alone): OSTEOPOROSIS The lowest T-score is used for diagnosis/impression Z-scores will be reported if <-1.0 or if > or = to+3.0 Note that if the patient's prior bone density test was consistent with osteoporosis, the clinical diagnosis remains Osteoporosis. Note that regardless of bone mineral density measurement, a patient may be clinically diagnosed with osteoporosis if they have had a prior fragility fracture. Caution: Medical conditions other than osteoporosis may cause low bone density, such as osteomalacia or renal osteodystrophy. Clinical correlation is necessary. 2) FRACTURE RISK (based on BMD alone): INCREASED Caution: Fracture risk may be increased independent of BMD in patients with corticosteroid use, age greater than 65 years, or a history of prior fragility fracture. The lowest T-score is used for diagnosis. Z-scores will be reported if <-1.0 or if > or = +3.0 RECOMMENDATIONS: Note that some medical conditions may cause low bone density, such as osteomalacia, vitamin D deficiency, multiple myeloma, renal osteodystrophy, hyperparathyroidism, hypogonadism, certain endocrinologic conditions, inflammatory arthropathies, gastrointestinal diseases and malabsorption, and certain medications such as, but not limited to, systemic steroids, anticonvulsants, clinical correlation is necessary. Evaluation of vitamin D status is recommended All patients should receive the recommended daily allowance of calcium and vitamin D, as recommended by the NOF and clinically indicated. Weight bearing exercises and strength training should be considered. Cessation of smoking and moderation of intake of alcohol, caffeine and carbonated beverages are recommended (for additional information please refer to NOF website at www.nof.org). Evaluation for secondary causes of bone loss is recommended in patients with a Z-score of less than -1.5 (see web-site for more details). Patients who have had a height loss of 1.5 inches or more since their peak height (tallest height), should be considered for evaluation of vertebral compression fractures by x-ray of the thoracic(with swimmers views) and lumbar spine. RECOMMENDATIONS FOR PHARMACOLOGIC THERAPY: National Osteoporosis Foundation (NOF) treatment recommendations (2008) Postmenopausal women and men age 50 and older presenting with the following should be treated: A hip or vertebral (clinical or morphometric) fracture T-score less than or equal to -2.5 at the femoral neck, total hip or spine after appropriate evaluation to exclude secondary causes For patients not on pharmacologic therapy for more than 2 years, the following recommendations may apply: Low bone mass (T-score between -1.0 and -2.5 at the femoral neck, total hip or spine) and 10 year probability of hip fracture greater than or equal to 3% or a 10 year probability of any major osteoporosis-related fracture greater than or equal to 20% based on the [place] adapted WHO algorithm for FRAX(TM): www.fili.ac.uk/FRAX/tool.jsp or The WHO Fracture Risk Assessment Tool at www.NOF.org PLEASE NOTE: THE DXA SCANNER USED FOR THIS PATIENT IS LISTED IN THE ABOVE DEMOGRAPHICS. THE TYPE OF SCANNER MUST BE ENTERED IN THE FRAX(TM) CALCULATOR TO CORRECT FOR DXA SCANNER VARIABILITY. PLEASE NOTE FRAX(TM) + Does not apply to premenopausal patients + DOES NOT APPLY TO TREATED OR PREVIOUSLY TREATED PATIENTS within past 2 years, please review updates from website listed above. ALL RECOMMENDATIONS AND CALCULATIONS ARE TO BE CONSIDERED GUIDELINES AND SHOULD NOT REPLACE SOUND CLINICAL JUDGMENT Follow-up in 2 years or as clinically indicated. Patients that are taking corticosteroids, are transplant recipients or have hyperparathyroidism should have annual follow-up. Follow-up scans should always be done on the same machine for accurate comparison. FOR MORE INFORMATION: [facility]osis and Metabolic Bone Disease: www.ccf.org/arthritis/osteo National Osteoporosis Foundation: www.nof.org International Society of Clinical Densitometry www.iscd.org Poster: [id number] Transcribe Date/Time: Sep 23 2022 10:28A Dictated by : DARRIAN DUBON MD This examination was interpreted and the report reviewed and electronically signed by: DARRIAN DUBON MD on Sep 28 2022 6:46PM EST documented in this encounter [facility] 09-23-2022 History of Present illness Narrative Radiology Service Progress Note PATIENT NAME: Jam Toscano DATE OF SERVICE: September 23, 2022 TIME: 9:54 AM PATIENT IDENTITY VERIFICATION COMPLETED USING TWO (2) IDENTIFIERS: Name and Date of confirmed by patient verbally. FALL SCREENING: Has the patient had 2 falls in the last year or 1 fall with injury or currently using an Ambulatory Assistive Device (Walker, Cane, Wheelchair, Crutches, etc.)? No PATIENT GENDER DATA: Male PATIENT RELEVANT IMPLANT DATA REVIEWED: Not Applicable RADIOLOGY DEPARTMENT: Bone Density PERIPHERAL IV DATA: Not applicable SIGNED BY: RT Humza(R) September 23, 2022 9:54 AM documented in this encounter [facility] 02-10-2022 Miscellaneous Notes Pt aware. Estefanía Ferraro MA ----- Message from Darrian Dubon MD sent at 02/06/2022 7:56 PM EDT ----- Please advise patient that his labs have much improved and he no longer has an M protein in the urine. The vitamin D is very good. We will continue to follow the kappa and lambda light chain levels overtime. thank you kindly, fa documented in this encounter [facility] 08-22-2020 History of Present illness Narrative Radiology Service Progress Note PATIENT NAME: Jam Toscano DATE OF SERVICE: August 22, 2020 TIME: 10:20 AM PATIENT IDENTITY VERIFICATION COMPLETED USING TWO (2) IDENTIFIERS: Name and Date of confirmed by patient verbally. FALL SCREENING: Has the patient had 2 falls in the last year or 1 fall with injury or currently using an Ambulatory Assistive Device (Walker, Cane, Wheelchair, Crutches, etc.)? No PATIENT GENDER DATA: Male PATIENT RELEVANT IMPLANT DATA REVIEWED: Not Applicable RADIOLOGY DEPARTMENT: Bone Density PERIPHERAL IV DATA: Not applicable SIGNED BY: Briana Gipson August 22, 2020 10:20 AM documented in this encounter [facility] Evaluation note Diagnosis Rheumatoid arthritis 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)- Primary Vitamin D deficiency Unspecified vitamin D deficiency Encounter to discuss test results Other specified counseling Encounter for medication review and counseling Other specified counseling Counseling on health promotion and disease prevention Other specified counseling Other osteoporosis without current pathological fracture [facility] Rheumatoid arthritis 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)- Primary Encounter to discuss test results Other specified counseling Counseling on health promotion and disease prevention Other specified counseling Ulcerative pancolitis (HCC) Debary ulcerative (chronic) colitis Other osteoporosis without current pathological fracture [facility] Rheumatoid arthritis 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)- Primary Encounter to discuss test results Other specified counseling Counseling on health promotion and disease prevention Other specified counseling Ulcerative pancolitis (HCC) Debary ulcerative (chronic) colitis Vitamin D deficiency Unspecified vitamin D deficiency On sulfasalazine therapy Encounter for medication review and counseling Other specified counseling Other osteoporosis without current pathological fracture Elevated serum immunoglobulin free light chain level Other nonspecific findings on examination of blood [facility] Diagnosis Seropositive rheumatoid arthritis (HCC) Rheumatoid arthritis Other osteoporosis without current pathological fracture Chronic pain of left ankle Ankle deformity, left Pes planus, unspecified laterality Other secondary osteoarthritis of multiple sites [facility] Diagnosis Rheumatoid arthritis 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) Other osteoporosis without current pathological fracture High risk for hip fracture Other specified conditions influencing health status Vitamin D deficiency, hx Unspecified vitamin D deficiency [facility] Other osteoporosis without current pathological fracture High risk for hip fracture Other specified conditions influencing health status Bone loss Other disorders of bone and cartilage Vitamin D deficiency, hx Unspecified vitamin D deficiency [facility] Diagnosis Elevated alkaline phosphatase level- Primary Other nonspecific abnormal serum enzyme levels [facility] Diagnosis Rheumatoid arthritis 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) [facility] Diagnosis Rheumatoid arthritis 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)- Primary Vitamin D deficiency Unspecified vitamin D deficiency Other osteoporosis without current pathological fracture Encounter for medication review and counseling Other specified counseling Rheumatoid arthritis 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) [facility]* Diagnosis Foreign body of left hand, sequela- Primary [facility] Diagnosis Rheumatoid arthritis 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)- Primary Vitamin D deficiency Unspecified vitamin D deficiency Other osteoporosis without current pathological fracture [facility] Diagnosis Seropositive rheumatoid arthritis (HCC)- Primary Rheumatoid arthritis Rheumatoid arthritis 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) On sulfasalazine therapy Ulcerative pancolitis (HCC) Debary ulcerative (chronic) colitis Other osteoporosis without current pathological fracture History of bisphosphonate therapy Personal history of other drug therapy Counseling on health promotion and disease prevention Other specified counseling [facility]* Diagnosis Other osteoporosis without current pathological fracture- Primary documented in this encounter [facility] for referral (narrative)* Diagnostic Procedure Only (Routine) - Closed Specialty Diagnoses / Procedures Referred By Contac t Referred To Contact XR IMAGING Diagnoses Rheumatoid arthritis 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) Procedures XR HAND GENERAL 3V PA/LAT/OBL BILATERAL RADEX HAND MINIMUM 3 VIEWS Nidia Weston APRN.MANAGER COLLECTION [address] [place] [address] [place] [address] Referral ID Status Reason Start Date Expiration Date V isits Requested Visits Authorized [id number] Closed Auto-Generate d Referral 03/14/2024 11/15/2024 1 1 [facility] for referral (narrative)* Diagnostic Procedure Only (Routine) - Closed Specialty Diagnoses / Procedures Referred By Contac t Referred To Contact XR IMAGING Diagnoses Rheumatoid arthritis 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) Procedures XR HAND GENERAL 3V PA/LAT/OBL BILATERAL RADEX HAND MINIMUM 3 VIEWS Nidia Weston TITLE INSURANCE AGENT.MANAGER COLLECTION [address] [place] [address] [place] [address] Referral ID Status Reason Start Date Expiration Date V isits Requested Visits Authorized [id number] Closed Auto-Generate d Referral 03/14/2024 11/15/2024 1 1 * Diagnostic Procedure Only (Routine) - Pending Review Specialty Diagnoses / Procedures Referred By Contac t Referred To Contact XR IMAGING Diagnoses Rheumatoid arthritis 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) Procedures XR HAND GENERAL 3V PA/LAT/OBL BILATERAL RADEX HAND MINIMUM 3 VIEWS Nidia Weston APRN.MANAGER COLLECTION [address] [place] [address] [place] [address] Referral ID Status Reason Start Date Expiration Date Visits Requested Visits Authorized [id number] Pending Review Auto-Generat ed Referral 04/13/2024 04/13/2025 1 1 [facility] for referral (narrative)* Diagnostic Procedure Only (Routine) - Pending Review Specialty Diagnoses / Procedures Referred By Contac t Referred To Contact XR IMAGING Diagnoses Seropositive rheumatoid arthritis (HCC) Ulcerative pancolitis (HCC) Other osteoporosis without current pathological fracture History of bisphosphonate therapy Procedures DXA-AXIAL SKELETON DXA BONE DENSITY STUDY 1/> SITES AXIAL Darrian Tran MD [address] [place] [address] [place] [address] Referral ID Status Reason Start Date Expiration Date Visits Requested Visits Authorized [id number] Pending Review Auto-Generat ed Referral 11/04/2025 1 1 [facility] for visit Narrative* Diagnostic Procedure Only (Routine) - Closed Specialty Diagnoses / Procedures Referred By Contac t Referred To Contact XR IMAGING Diagnoses Rheumatoid arthritis 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) Procedures XR HAND GENERAL 3V PA/LAT/OBL BILATERAL RADEX HAND MINIMUM 3 VIEWS Nidia Weston, TITLE INSURANCE AGENT.MANAGER COLLECTION [address] [place] [address] [place] [address] Referral ID Status Reason Start Date Expiration Date V isits Requested Visits Authorized [id number] Closed Auto-Generate d Referral 03/14/2024 11/15/2024 1 1 [facility] Advance Directives Advance Directive Response Recorded Date/ Time Advance Directives No February 19 10:37am Chief Complaint and Reason for Visit Chief Complaint Ureteral Stone Assessments No Assessments Information Available Summary Purpose Family History No Family History Records FoundNo Family History Records FoundNo Family History Records FoundNo Family History Records FoundNo Family History Records FoundNo Family History Records FoundNo Family History Records Found Reason for Referral Specialty Diagnoses / Procedures Referred By Contac t Referred To Contact Diagnoses Elevated alkaline phosphatase level Procedures CONSULT TO HEPATOLOGY OFFICE/OUTPATIENT [facility] 60 MINUTES Nidia Weston, TITLE INSURANCE AGENT.MANAGER COLLECTION [address] [place] [address] Referral ID Status Reason Start Date Expiration Date Visits Requested Visits Authorized [id number] Authorized PCP Requested Referral 02/11/2024 02/10/2025 1 1 Specialty Diagnoses / Procedures Referred By Contac t Referred To Contact Orthopedics Diagnoses Foreign body of left hand, sequela Procedures CONSULT TO ORTHOPAEDICS OFFICE/OUTPATIENT [facility] 60 MINUTES Nidia Weston, TITLE INSURANCE AGENT.MANAGER COLLECTION [address] [place] [address] Referral ID Status Reason Start Date Expiration Date Visits Requested Visits Authorized [id number] Authorized PCP Requested Referral 04/11/2024 04/11/2025 1 1 Additional Source Comments (unrecognized sect ion and content) No Status Records FoundNo Status Records FoundNo Status Records FoundNo Status Records FoundNo Status Records FoundNo Status Records FoundNo Status Records Found INFORMATION SOURCE (unrecogn ized section and content) DATE CREATED AUTHOR 11/30/2021 [facility] DATE CREATED AUTHOR AUTHOR'S ORGANIZ ATION 02/20/2023 [facility] DATE CREATED AUTHOR AUTHOR'S ORGANIZ ATION 05/08/2024 [facility]ical [facility] DATE CREATED AUTHOR AUTHOR'S ORGANIZ ATION 06/09/2024 [facility] DATE CREATED AUTHOR AUTHOR'S ORGANIZ ATION 06/18/2024 [facility] DATE CREATED AUTHOR AUTHOR'S ORGANIZ ATION 10/17/2024 [facility] DATE CREATED AUTHOR AUTHOR'S ORGANIZ ATION 10/20/2024 [facility] Source Comments (unrecognize d section and content) In the event this informatio n is protected by the Federal Confidentiality of Alcohol and Drug Abuse Patient Records regulations: The Federal rules restrict any use of the information to criminally investigate or prosecute any alcohol or drug abuse patient.[facility] the event this information is protected by the Federal Confidentiality of Alcohol and Drug Abuse Patient Records regulations: The Federal rules restrict any use of the information to criminally investigate or prosecute any alcohol or drug abuse patient.[facility] Hospital[facility] the event this information is protected by the Federal Confidentiality of Alcohol and Drug Abuse Patient Records regulations: The Federal rules restrict any use of the information to criminally investigate or prosecute any alcohol or drug abuse patient.[facility] the event this information is protected by the Federal Confidentiality of Alcohol and Drug Abuse Patient Records regulations: The Federal rules restrict any use of the information to criminally investigate or prosecute any alcohol or drug abuse patient.[facility] Hospital[facility] the event this information is protected by the Federal Confidentiality of Alcohol and Drug Abuse Patient Records regulations: The Federal rules restrict any use of the information to criminally investigate or prosecute any alcohol or drug abuse patient.[facility] Hospital[facility] the event this information is protected by the Federal Confidentiality of Alcohol and Drug Abuse Patient Records regulations: The Federal rules restrict any use of the information to criminally investigate or prosecute any alcohol or drug abuse patient.[facility] HospitalIn the event this information is protected by the Federal Confidentiality of Alcohol and Drug Abuse Patient Records regulations: The Federal rules restrict any use of the information to criminally investigate or prosecute any alcohol or drug abuse patient.[facility] HospitalIn the event this information is protected by the Federal Confidentiality of Alcohol and Drug Abuse Patient Records regulations: The Federal rules restrict any use of the information to criminally investigate or prosecute any alcohol or drug abuse patient.[facility] HospitalIn the event this information is protected by the Federal Confidentiality of Alcohol and Drug Abuse Patient Records regulations: The Federal rules restrict any use of the information to criminally investigate or prosecute any alcohol or drug abuse patient.[facility] Hospital[facility] the event this information is protected by the Federal Confidentiality of Alcohol and Drug Abuse Patient Records regulations: The Federal rules restrict any use of the information to criminally investigate or prosecute any alcohol or drug abuse patient.[facility] HospitalIn the event this information is protected by the Federal Confidentiality of Alcohol and Drug Abuse Patient Records regulations: The Federal rules restrict any use of the information to criminally investigate or prosecute any alcohol or drug abuse patient.[facility] HospitalIn the event this information is protected by the Federal Confidentiality of Alcohol and Drug Abuse Patient Records regulations: The Federal rules restrict any use of the information to criminally investigate or prosecute any alcohol or drug abuse patient.[facility] the event this information is protected by the Federal Confidentiality of Alcohol and Drug Abuse Patient Records regulations: The Federal rules restrict any use of the information to criminally investigate or prosecute any alcohol or drug abuse patient.[facility] HospitalIn the event this information is protected by the Federal Confidentiality of Alcohol and Drug Abuse Patient Records regulations: The Federal rules restrict any use of the information to criminally investigate or prosecute any alcohol or drug abuse patient.[facility] HospitalIn the event this information is protected by the Federal Confidentiality of Alcohol and Drug Abuse Patient Records regulations: The Federal rules restrict any use of the information to criminally investigate or prosecute any alcohol or drug abuse patient.[facility] HospitalIn the event this information is protected by the Federal Confidentiality of Alcohol and Drug Abuse Patient Records regulations: The Federal rules restrict any use of the information to criminally investigate or prosecute any alcohol or drug abuse patient.[facility] HospitalIn the event this information is protected by the Federal Confidentiality of Alcohol and Drug Abuse Patient Records regulations: The Federal rules restrict any use of the information to criminally investigate or prosecute any alcohol or drug abuse patient.[facility] Reason for Visit (unrecogniz ed section and content) Reason Comments Results Reason Comments Follow Up Reason Comments Outside Lab Results Vit D Reason Comments Patient Update Reason Comments Radiology XR Reason Comments Radiology BMD Reason Comments Follow Up Rheumatoid Arthritis and Osteoporosis Reason Comments Patient Update Reason Comments Results Labs Reason Comments F/U 1 month RA - Reason Comments Follow Up Reason Comments Infusion Specialty Diagnoses / Procedures Referred By Contac t Referred To Contact Diagnoses Other osteoporosis without current pathological fracture Procedures INJECTION, ZOLEDRONIC ACID, 1 MG Nidia Weston, TITLE INSURANCE AGENT.MANAGER [employer]LECTION [address] [facility] [place] [address] Rheu Infusion [facility] Maria De Jesus [address] [facility] [place] [address] Referral ID Status Reason Start Date Expiration Date V isits Requested Visits Authorized [id number] Authorized 04/12/2024 04/12/2025 1 1 Care Teams (unrecognized sec tion and content) Casting Chipper Relationship Specialty Start Date End Date Jose L Lackey MD PCP - General Family Practice 01/18/14 Casting Chipper Relationship Specialty Start Date End Date Jose L Lackey MD PCP - General Family Medicine 01/18/14 Casting Chipper Relationship Specialty Start Date End Date Jose L Lackey MD PCP - General Family Medicine 01/18/14 Casting Chipper Relationship Specialty Start Date End Date Jose L Lackey MD PCP - General Family Medicine 01/18/14 Casting Chipper Relationship Specialty Start Date End Date Jose L Lackey MD PCP - General Family Medicine 01/18/14 Casting Chipper Relationship Specialty Start Date End Date Jose L Lackey MD PCP - General Family Medicine 01/18/14 Casting Chipper Relationship Specialty Start Date End Date Joes L Lackey MD PCP - General Family Medicine 01/18/14 Casting Chipper Relationship Specialty Start Date End Date Jose L Lackey MD PCP - General Family Medicine 01/18/14 Casting Chipper Relationship Specialty Start Date End Date Jose L Lackey MD PCP - General Family Medicine 01/18/14 Casting Chipper Relationship Specialty Start Date End Date Jose L Lackey MD PCP - [facility] 01/18/14 Casting Chipper Relationship Specialty Start Date End Date Jose L Lackey MD PCP - [facility] 01/18/14 Casting Chipper Relationship Specialty Start Date End Date Jose L Lackey MD PCP - [facility] 01/18/14 Casting Chipper Relationship Specialty Start Date End Date Jose L Lackey MD PCP - [facility] 01/18/14 FOR RECORDS PERTAINING TO PATIENTS WHO ARE OR HAVE BEEN ENROLLED IN A CHEMICAL DEPENDENCY/SUBSTANCEABUSE PROGRAM, SOME INFORMATION MAY BE OMITTED. This clinical summary was aggregated from multiple sources. Caution should be exercised in using it in the provision of clinical care. This summary normalizes information from multiple sources, and as a consequence, information in this document may materially change the coding, format and clinical context of patient data. In addition, data may be omitted in some cases. CLINICAL DECISIONS SHOULD BE BASED ON THE PRIMARY CLINICAL RECORDS. [facility]. provides no warranty or guarantee of the accuracy or completeness of information in this document.
== END 2024-11-25 12:47 | disposition home or self-care (01) ==
LOC: CT 12:46
PROVIDERS: PCP Family Medicine; Visit Provider Urology
DX: N13.2 Hydronephrosis with renal and ureteral calculous obstruction (principal); R91.8 Other nonspecific abnormal finding of lung field
CPT/HCPCS: 74176

== ENCOUNTER 2024-12-21 09:24 | Outpatient (OUT) | payer OTHER, SELFPAY ==
--- OUTSIDE RECORDS SUMMARY | 2024-12-21 09:35 | XMS_ITS | CCD ---
Author Organization [facility] Care Team Providers Care Clinical Medical Transcriptionist Name Role Phone Rigo Gonzalez Attending Provider [phone] Jose L Lackey Primary Care Provider Jose L Lackey MD Primary Care Provider [phone] Jose L Lackey MD Primary Care Provider [phone] ZIYAD ., DR DOMINGO Primary Care Unavailable HOY ., DR DOMINGO Consulting Unavailable HOY ., DR DOMINGO Attending Unavailable HOY ., DR DOMINGO Admitting Unavailable GUSTON, DR KALEIGH Strong Consulting Unavailable HOY ., [...] DR DOMINGO Primary Care Unavailable ZIEBER, DR JENYN Maguire Consulting Unavailable MARKER ., DR MIRAMONTES Admitting Unavailable MARKER ., DR MIRAMONTES Attending Unavailable MARKER ., DR MIRAMONTES Consulting Unavailable Jose L Lackey MD Primary Care Provider [phone] DAMION MABRY Attending Unavailable DAMION MABRY Referring Unavailable DAMION MABRY Attending Unavailable DAMION MABRY Referring Unavailable Kavon Johnson Attending Unavailable Kavon Johnson Attending Unavailable Zoila Castillo Attending Unavailable Luis Antonio García Attending Unavaila ble Sarmini, Luis Antonio Talal Referring Unavaila ble Sarmini, Luis Antonio Talal Admitting Unavaila ble Sarmini, Luis Antonio Talal Attending Unavaila ble Sarmini, Luis Antonio Talal Referring Unavaila ble Sarmini, Luis Antonio Talal Admitting Unavaila ble Sarmini, Salmon Talal Attending Unavaila ble Sarmini, Salmon Talal Attending Unavaila ble Sarmini, Salmon Talal Attending Unavaila ble Sarmini, Salmon Talal Admitting Unavaila ble Sarmini, Salmon Talal Attending Unavaila ble Sarmini, Salmon Talal Referring Unavaila ble Sarmini, Salmon Talal Admitting Unavaila ble Sarmini, Salmon Talal Attending Unavaila ble ZIYAD, JOSE L M Primary Care Unavailable ENRICO, NIDIA M Referring Unavailable HOY, JOSE L M Primary Care Unavailable ENRICO, NIDIA M Attending Unavailable HOY, JOSE L M Primary Care Unavailable ENRICO, NIDIA M Referring Unavailable HOY, JOSE L M Primary Care Unavailable ENRICO, NIDIA M Attending Unavailable HOY, JOSE L M Primary Care Unavailable DARRIAN DUBON Attending Unavailable HOY, JOSE L M Primary Care Unavailable ENRICO, NIDIA M Attending Unavailable HOY, JOSE L M Primary Care Unavailable ENRICO, NIDIA M Referring Unavailable HOY, JOSE L M Primary Care Unavailable HOY, JOSE L M Primary Care Unavailable ENRICO, NIDIA M Attending Unavailable RAMÍREZ, Marcin R Attending Unavailable Hoy, Jose L Referring Unavailable RAMÍREZMarcin R Attending Unavailable RAMÍREZMarcin R Admitting Unavailable Sarmini, Salmon Talal Attending Unavaila ble Sarmini, Luis Antonio Talal Attending Unavaila ble Sarmini, Luis Antonio Talal Admitting Unavaila ble RAMÍREZMarcin R Attending Unavailable RAMÍREZMarcin R Admitting Unavailable Sarmini, Salmon Talal Attending Unavaila ble Sarmini, Luis Antonio Talal Attending Unavaila ble Sarmini, Luis Antonio Talal Admitting Unavaila ble Unavailable Unavailable Unavailable Allergies Allergy Classification Reported Allergen(s) Allergy Type Date of Onset Reaction(s) Facility (4 sources) No Known Medication Allergies; Translations: [No Known Medication Allergies] Propensity to adverse reactions (disorder) [facility] Medications Current Medications Medication Drug Class(es) Dates Sig (Normalized) Sig (Original) atorvastatin 20 mg oral tablet (18 sources) HMG-CoA Reductase Inhibitor take 1 tablet by mouth once daily atorvastatin (LIPITOR) 20 mg tablet Take 20 mg by mouth once daily. Active Comment on above: Take 20 mg by mouth once daily. CHEWABLE MULTI VITAMIN ORAL (18 sources) CHEWABLE MULTI VITAMIN ORAL Take by mouth. Active CHEWABLE MULTI V ITAMIN ORAL Take by mouth. 0 Active Comment on above: Take by mouth. cholecalciferol 0.125 mg oral capsule (18 sources) Vitamin D Cholecalciferol, Vitamin D3, 5,000 unit cap Take 5,000 Units by mouth once daily. patient taking once daily with food Active Comment on above: Take 5,000 Units by mouth once daily. patient taking once daily with food ezetimibe 10 mg oral tablet (18 sources) Dietary Cholesterol Absorption Inhibitor take 1 tablet by mouth once daily ezetimibe (ZETIA) 10 mg tablet Take 10 mg by mouth once daily. Active Comment on above: Take 10 mg by mouth once daily. folic acid 1 mg oral tablet (18 sources) Start: 018 take 1 tablet by mouth once daily folic acid 1 mg tablet Take 1 mg by mouth once daily. 0 08/03/2018 Active Comment on above: Take 1 mg by mouth o nce daily. lisinopril 20 mg oral tablet (18 sources) Angiotensin Converting Enzyme Inhibitor take 1 tablet by mouth once daily lisinopril (ZESTRIL, PRINIVIL) 20 mg tablet Take 20 mg by mouth once daily. Active Comment on above: Take 20 mg by mouth once daily. omeprazole 40 mg delayed release oral capsule (18 sources) Proton Pump Inhibitor take 1 capsule by mouth once daily Omeprazole 40 mg capsule Take 40 mg by mouth once daily. Active Comment on above: Take 40 mg by mouth once daily. sulfaSALAzine 500 mg delayed release oral tablet (18 sources) Aminosalicylate Start: 023 take 2 tablets by mouth four times daily sulfaSALAzine EC (AZULFIDINE EN) 500 mg EC tablet TAKE 2 TABLETS BY MOUTH 4 TIMES A DAY 11/03/2023 Active SULFASALAZINE OR AL Take by mouth. takes 8 pills a days, divided three times daily (3 in am, 3 noon, 2 pm), per medical concierge 0 Active Comment on above: Take by mouth. takes 8 pills a days, divided three times daily (3 in am, 3 noon, 2 pm), per medical concierge TAKE 2 TABLETS BY MO UT 4 TIMES A DAY turmeric root extract 500 mg cap (9 sources) take 1 tablet by mouth three [...] three times daily. vedolizumab 300 mg injection (8 sources) Integrin Receptor Antagonist Start: 08-11-2024 ENTYVIO [...] Necrosis Factor Marita Start: 1 End: 3 JOANNACF, PEN 40 mg/0.4 mL pen kit Inject 40 mg subcutaneously every 2 weeks. Prescribed by Senior Housekeeper : Nel Lebron MD Previously prescr. by Ronald Brown MD 0 02/18/2021 05/04/2023 Discontinued Comment on above: Inject 40 mg subcuta neously every 2 weeks. Prescribed by Senior Housekeeper : Nel Lebron MD Previously prescr. by [...] on above: TAKE 1 CAPSULE BY MO [facility] 4 TIMES A DAY 0.5 ml etanercept [...] oral tablet (2 sources) Start: 4 End: predniSONE (DELTASONE) 10 mg tablet PLEASE SEE ATTACHED FOR DETAILED DIRECTIONS 0 12/02/2023 03/14/2024 Discontinued Comment on above: PLEASE SEE ATTACHED FOR DETAILED DIRECTIONS 100 ml zoledronic acid 0.05 mg/ml injection (1 source) Bisphosphonate Start: End: zoledronic acid 5 mg PREMIX piggyback (RECLAST) [...] (2 sources) Drug therapy finding; Translations: [Other [place] [facility] (current) drug therapy] Episodic Other bone disease [...] te Episodic/Chronic Other aftercare (1 source) Other [place] [facility] (current[facility] drug therapy; Translations: [OTH DETENTION CURRENT DRUG THERAPY] Onset: 09-26-2022 Episodic Other aftercare (2 sources) Long-term current use of drug therapy; Translations: [...] UNSPECIFIED; Translations: [LOW BACK PAIN, UNSPECIFIED] Onset: 11-24-2022 Results Test Name Value Interpretation Reference Range Facility Quantiferon-TB Plus (Client Incubated)on 12-16-2024 Gamma interferon background IA Qn (Bld) 0.09 International_Unit/mL Invalid Interpretation Code [facility] Comment on above: Performed By: #### 1 [id number] #### [facility] [address] [place] [address] M. tuberculosis stim IFN-g by CD4+ CD8+ T-cells corrected for background Qn (Bld) 0.07 International_Unit/mL Invalid Interpretation Code [facility] Comment on above: Performed By: #### 1 [id number] #### [facility] [address] [place] [address] M. tuberculosis stim IFN-g by CD4+ T-cells corrected for background Qn (Bld) 0.07 International_Unit/mL Invalid Interpretation Code [facility] Comment on above: Performed By: #### 1 [id number] #### [facility] [address] [place] [address] M. tuberculosis stim IFN-g Ql (Bld) [Interp] Negative Invalid Interpretation Code Negative [facility] Comment on above: Result Comment: No r esponse to M tuberculosis antigens detected. Infection with M tuberculosis is unlikely, but high risk individuals should be considered for additional testing (ATS/IDSA/CDC Clinical Practice Guidelines, 2017). The reference range is an Antigen minus Nil result of <0.35 IU/mL. The specimen received for QuantiFERON testing was incubated by the ordering institution. Specific procedures outlined in our Directory of Services and in the package insert for the QuantiFERON Gold (In Tube) test must be followed to enable for proper stimulation of cells for the production of interferon gamma. Chemiluminescence immunoassay methodology Performed at: [facility] [address] [place], [place] [id number] PhD Tarun Olivas Performed By: #### 1 [id number] #### [facility] [address] [place] [address] Mitogen stimulated gamma interferon corrected for background Qn (Bld) >10.00 Invalid Interpretation Code [facility] Comment on above: Performed By: #### 1 [id number] #### [facility] [address] [place] [address] Service comment (Unsp spec) [Interp] Comment Invalid Interpretation Code [facility] Comment on above: Result Comment: Malachi tiFERON-TB Gold Plus is a qualitative indirect test for M tuberculosis infection (including disease) and is intended for use in conjunction with risk assessment, radiography, and other medical and diagnostic evaluations. The QuantiFERON-TB Gold Plus result is determined by subtracting the Nil value from either TB antigen (Ag) value. The Mitogen tube serves as a control for the test. Performed By: #### 1 [id number] #### [facility] [address] [place] [address] AMA Ab Scron 12-15-2024 Mitochondria M2 IgG Qn (S) <20.0 Invalid Interpretation Code 0.0-20.0 [facility] Comment on above: Result Comment: Nega tive 0.0 - 20.0 Equivocal 20.1 - 24.9 Positive >24.9 Mitochondrial (M2) Antibodies are found in 90-96% of patients with primary biliary cirrhosis. Performed at: [facility] [address] [place], [place] [id number] PhD Tarun Olivas Performed By: #### 1 [id number] #### [facility] [address] [place] [address] Celiac Disease Comprehensive on 12-15-2024 Endomysium IgA Ql (S) Negative Invalid Interpretation Code Negative [facility] Comment on above: Performed By: #### 1 [id number] #### [facility] [address] [place] [address] Gliadin peptide IgA Qn (S) 5 unit(s) Invalid Interpretation Code 0-19 [facility] Comment on above: Result Comment: Nega tive 0 - 19 Weak Positive 20 - 30 Moderate to Strong Positive >30 Performed By: #### 1 [id number] #### [facility] [address] [place] [address] Gliadin peptide IgG Qn (S) 2 unit(s) Invalid Interpretation Code 0-19 [facility] Comment on above: Result Comment: Nega tive 0 - 19 Weak Positive 20 - 30 Moderate to Strong Positive >30 Performed By: #### 1 [id number] #### [facility] [address] [place] [address] IgA [Mass/Vol] 199 mg/dL Invalid Interpretation Code 90-386 [facility] Comment on above: Result Comment: Perf ormed at: [facility] [address] [id number] PhD Tarun Olivas Performed By: #### 1 [id number] #### [facility] [address] [place] [address] tTG IgA Qn (S) <2 Invalid Interpretation Code 0-3 [facility] Comment on above: Result Comment: Nega tive 0 - 3 Weak Positive 4 - 10 Positive >10 Tissue Transglutaminase (tTG) has been identified as the endomysial antigen. Studies have demonstr- ated that endomysial IgA antibodies have over 99% specificity for gluten sensitive enteropathy. Performed By: #### 1 [id number] #### [facility] [address] [place] [address] tTG IgG Qn (S) 6 unit/mL High 0-5 [facility] Comment on above: Result Comment: Nega tive 0 - 5 Weak Positive 6 - 9 Positive >9 Performed By: #### 1 [id number] #### [facility] [address] [place] [address] Hep Bs Abon 12-15-2024 HBV surface Ab Ql (S) Non-Reactive Invalid Interpretation Code [facility] Comment on above: Result Comment: Non Reactive: Not immune to HBV infection. Equivocal: Unable to determine if anti-HBs is present at levels consistent with immunity. Reactive: Anti-HBs concentration detected at greater than 10 mIU/mL. Individual is considered to be immune to infection with HBV. Performed at: [facility] [address] [place] [id number] PhD Tarun Olivas Performed By: #### 2 [id number] #### [facility] [address] [place] [address] Hep Bs Agon 12-15-2024 HBV surface Ag IA Ql Negative Invalid Interpretation Code Negative [facility] Comment on above: Result Comment: Perf ormed at: [facility] [address] [id number] PhD Tarun Olivas Performed By: #### 2 [id number] #### [facility] [address] [place] [address] Ambulatory Visit Summaryon 0 12-14-2024 Ambulatory Visit Summary Ambulatory Visi t Summary JAM TOSCANO :1965 Visit Date:12/14/2024 Ambulatory Visit Instructions Your Diagnosis Ulcerative colitis, universal History of colon polyps Elevated alkaline phosphatase level Your Care Team Attending Physician - Luis Antonio García MD Primary Care Physician - Jose L Lackey MD This Is Your Medications List Contact prescribing physician if questions or concerns Turmeric atorvastatin (atorvastatin 20 mg Tab) cholecalciferol (cholecalciferol 5000 intl units oral capsule) ezetimibe (Zetia 10 mg Tab) folic acid (folic acid 1 mg Tab) lisinopril multivitamin with minerals (Multivitamins and Minerals) omeprazole (omeprazole 40 mg Cap-DR) sulfasalazine vedolizumab (Entyvio Pen 108 mg/0.68 mL subcutaneous solution) Procedures Performed Colonoscopy (06/03/2024), Esophagogastroduodenoscop y (06/03/2024), Colonoscopy (02/26/2024), Colonoscopy (03/23/2023), Cystoscopy (02/04/2021), Colonoscopy, Procedure on hip, Procedure on knee. Discharge Vitals Respiratory Rate 12 Blood Pressure 117/79 Height 166 cm Height 65 in Weight 77 kg Weight 169.756 lb BMI 27.94 What to do next Scheduled Follow-Up Appointments Thursday 8:15 AM EDT With: Ricky ROBLERO, Luis Antonio Tiwari Where: [facility] [address] [place] [phone]- You Need to Complete the Following C-Reactive Protein, Blood, Routine collect, 12/14/24, Order for future visit, Lab Collect, Ulcerative colitis, universal, Print Label By Order Location CBC w/ Auto Diff, Blood, Routine collect, 12/14/24, Order for future visit, Lab Collect, Ulcerative colitis, universal, Print Label By Order Location Comprehensive Metabolic Panel, Blood, Routine collect, 12/14/24, Order for future visit, Lab Collect, Ulcerative colitis, universal, Print Label By Order Location Hepatitis B Surface Antibody, Blood, Routine collect, 12/14/24, Order for future visit, Lab Collect, Ulcerative colitis, universal, Print Label By Order Location Hepatitis B Surface Antigen, Blood, Routine collect, 12/14/24, Order for future visit, Lab Collect, Ulcerative colitis, universal, Print Label By Order Location Quantiferon-TB Plus (Client Incubated), Blood, Routine collect, 12/14/24, Order for future visit, Lab Collect, Ulcerative colitis, universal, Print Label By Order Location Medications What How Much When Instructions Unchanged atorvastatin (atorvastatin 20 mg Tab) [...] physician if questions or concerns Unchanged lisinopril 10 Milligram By Mouth Contact prescribing physician if questions or concerns [...] if questions or concerns Unchanged vedolizumab (Entyvio Pen 108 mg/ 0.68 mL subcutaneous solution) 108 Milligram Contact prescribing physician if questions or concerns Allergies No Known Allergies No Known Medication Allergies Problems Ongoing - Any problem that you are currently receiving treatment for. Acute diarrhea Adenomatous colon polyp Anemia Arthritis Bladder mass Bladder stone BPH with urinary obstruction Continuous severe abdominal pain Elevated alkaline phosphatase level Feeling of incomplete bladder emptying Gross hematuria Heartburn Hematochezia History of colon polyps Hyperlipemia Incomplete bladder emptying Kidney stones Multiple renal cysts Prostate calculus Pyuria Rectal bleed Screening PSA (prostate specific antigen) Ulcerative colitis, universal [place] ulcerative colitis Ureteral stone with hydronephrosis Urethral stone Historical - Any problem that you are no longer receiving treatment for. Extreme obesity Ulcerative colitis Patient Survey You may receive a survey via text or e-mail asking about your office visit. Please share your experience with us by completing your survey. We appreciate your feedback and thank you for choosing us for your care. Normal [facility] CBC w/ Auto Diffon 5 Basophils/100 WBC (Bld) 0.5 % Normal 0.0-2.0 [facility] Comment on above: Performed By: #### 2 [id number] #### [facility] [address] [place] [address] Basophils/Leukocytes Auto (Bld) [Pure # fraction] 0.0 E9/L Normal 0.0-0.2 [facility] Comment on above: Performed By: #### 2 [id number] #### [facility] [address] [place] [address] Eosinophils (Bld) [#/Vol] 0.0 E9/L Normal 0.0-0.5 [facility] Comment on above: Performed By: #### 2 [id number] #### [facility] [address] [place] [address] Eosinophils/100 WBC (Bld) 0.0 % Normal 0.0-8.0 [facility] Comment on above: Performed By: #### 2 [id number] #### [facility] [address] [place] [address] Erythrocyte distribution width (RBC) [Ratio] 15.6 % High 10.9-14.2 [facility] Comment on above: Performed By: #### 2 [id number] #### [facility] [address] [place] [address] Hematocrit (Bld) [Volume fraction] 36.2 % Low 37.7-49.0 [facility] Comment on above: Performed By: #### 2 [id number] #### [facility] [address] [place] [address] Hemoglobin (Bld) [Mass/Vol] 12.6 g/dL Low 13.5-17.5 [facility] Comment on above: Performed By: #### 2 [id number] #### [facility] [address] [place] [address] Lymphocytes (Bld) [#/Vol] 1.6 E9/L Normal 1.0-4.0 [facility] Comment on above: Performed By: #### 2 [id number] #### [facility] [address] [place] [address] Lymphocytes/100 WBC (Bld) 24.8 % Normal 14.0-50.0 [facility] Comment on above: Performed By: #### 2 [id number] #### [facility] [address] [place] [address] MCH (RBC) [Entitic mass] 31.7 pg Normal 27.0-34.0 [facility] Comment on above: Performed By: #### 2 [id number] #### [facility] [address] [place] [address] MCHC (RBC) [Mass/Vol] 34.9 g/dL Normal 31.4-36.0 [facility] Comment on above: Performed By: #### 2 [id number] #### [facility] [address] [place] [address] MCV (RBC) [Entitic vol] 90.8 fL Normal 80.0-100.0 [facility] Comment on above: Performed By: #### 2 [id number] #### [facility] [address] [place] [address] Monocytes (Bld) [#/Vol] 0.5 E9/L Normal 0.2-1.0 [facility] Comment on above: Performed By: #### 2 [id number] #### [facility] [address] [place] [address] Neutrophils (Bld) [#/Vol] 4.4 E9/L Normal 2.0-7.5 [facility] Comment on above: Performed By: #### 2 [id number] #### [facility] [address] [place] [address] Neutrophils/100 WBC (Bld) 67.2 % Normal 36.0-75.0 [facility] Comment on above: Performed By: #### 2 [id number] #### [facility] [address] [place] [address] Platelet 261.0 E9/L Normal 150.0-500. 0 [facility] Comment on above: Performed By: #### 2 [id number] #### [facility] [address] [place] [address] Platelet mean volume (Bld) [Entitic vol] 6.9 fL Normal 6.4-10.8 [facility] Comment on above: Performed By: #### 2 [id number] #### [facility] [address] [place] [address] RBC (Bld) [#/Vol] 4.0 E12/L Low 4.3-5.9 [facility] Comment on above: Performed By: #### 2 [id number] #### [facility] [address] [place] [address] WBC corrected for nucl RBC Auto (Bld) [#/Vol] 6.6 E9/L Normal 4.0-11.0 [facility] Comment on above: Performed By: #### 2 [id number] #### [facility] [address] [place] [address] CMPon 12-14-2024 Albumin [Mass/Vol] 4.1 g/dL Normal 3.3-5.0 [facility] Comment on above: Performed By: #### 2 [id number] #### [facility] [address] [place] [address] Albumin/Globulin (S) [Mass conc ratio] 1.5 Normal 1.1-2.2 [facility] Comment on above: Performed By: #### 2 [id number] #### [facility] [address] [place] [address] ALP [Catalytic activity/Vol] 88 Int._Unit/L Normal 21-98 [facility] Comment on above: Performed By: #### 2 [id number] #### [facility] [address] [place] [address] ALT No additional P-5'-P [Catalytic activity/Vol] 27 Int._Unit/L Normal 6-46 [facility] Comment on above: Performed By: #### 2 [id number] #### [facility] [address] [place] [address] Anion gap [Moles/Vol] 9 mmol/L Normal 6-16 [facility] Comment on above: Performed By: #### 2 [id number] #### [facility] [address] [place] [address] AST [Catalytic activity/Vol] 29 Int._Unit/L Normal 5-43 [facility] Comment on above: Performed By: #### 2 [id number] #### [facility] [address] [place] [address] Bilirubin [Mass/Vol] 0.4 mg/dL Normal 0.0-1.1 [facility] Comment on above: Performed By: #### 2 [id number] #### [facility] [address] [place] [address] Calcium [Mass/Vol] 9.1 mg/dL Normal 8.9-11.1 [facility] Comment on above: Performed By: #### 2 [id number] #### [facility] [address] [place] [address] Chloride [Moles/Vol] 108 mmol/L Normal 101-111 [facility] Comment on above: Performed By: #### 2 [id number] #### [facility] [address] [place] [address] CO2 [Moles/Vol] 27 mmol/L Normal 21-31 [facility] Comment on above: Performed By: #### 2 [id number] #### [facility] [address] [place] [address] Creatinine [Mass/Vol] 0.8 mg/dL Normal 0.5-1.3 [facility] Comment on above: Performed By: #### 2 [id number] #### [facility] [address] [place] [address] Globulin (S) [Mass/Vol] 2.8 g/dL Normal 1.4-4.0 [facility] Comment on above: Performed By: #### 2 [id number] #### [facility] [address] [place] [address] Glucose [Mass/Vol] 94 mg/dL Normal 55-199 [facility] Comment on above: Performed By: #### 2 [id number] #### [facility] [address] [place] [address] Potassium [Moles/Vol] 4.7 mmol/L Normal 3.5-5.3 [facility] Comment on above: Performed By: #### 2 [id number] #### [facility] [address] [place] [address] Protein [Mass/Vol] 6.9 g/dL Normal 6.0-7.8 [facility] Comment on above: Performed By: #### 2 [id number] #### [facility] [address] [place] [address] Sodium [Moles/Vol] 139 mmol/L Normal 135-145 [facility] Comment on above: Performed By: #### 2 [id number] #### [facility] [address] [place] [address] Urea nitrogen [Mass/Vol] 16 mg/dL Normal 5-21 [facility] Comment on above: Performed By: #### 2 [id number] #### [facility] [address] [place] [address] Urea nitrogen/Creatinine [Mass ratio] 20 No Units Normal 10-20 [facility] Comment on above: Performed By: #### 2 [id number] #### [facility] [address] [place] [address] CRPon 12-14-2024 CRP [Mass/Vol] 0.2 mg/dL Normal <=1.9 [facility] Comment on above: Performed By: #### 2 [id number] #### [facility] [address] [place] [address] Gastroenterology Office/Clin ic Noteon 12-14-2024 Gastroenterology Office/Clinic Note Gastroenterology Office/Clinic Note Chief Complaint 6 month follow up HPI Staff Established patient is a(n) 59 year old male who presents today for a(n) 6 month follow up. Approved for Entyvio pens q2 weeks - serviced through [facility]. Effective? Yes Any frequency, urgency, abdominal pain, n/v, bloody or mucus stools? No Any blood thinners? no Any GLP-1 agonists? no Last visit 06/13/24 w/Dr. García: Assessment/Plan 1. Dowell ulcerative colitis (K51.00: Ulcerative (chronic) pancolitis without [...] switched to sulfasalazine. We added Humira in 2017. We increased his Humira Started Entyvio: 03/2023: q8 weeks Repeat colonoscopy with Dr. Chambers May 2024 showed no tubular adenomas just hyperplastic polyps, no evidence of endoscopic inflammation, Morales score 0 We discussed having tubular adenoma polyps in the transverse colon and rectum and tubovillous polyp in the transverse colon was high risk of UC, repeat colonoscopy in May did not show dysplasia or tubular adenomas, but he remains at high risk, if he is interested we can always refer to IBD specialist for next colonoscopy, he prefers to stay at [facility] He has also RA, no specific therapy for now, follows with Dr. Valente at [facility] We discussed that having this lesion in [...] polyps (Z86.010: Personal history of colonic polyps) 3. Elevated alkaline phosphatase level (R74.8: Abnormal levels of other serum enzymes) Very minimal, ultrasound negative, FibroScan showed minimal steatosis, no scarring If worsened in the future we will consider MRCP given the underlying UC EGD 06/03/24: Impression and Plan Gastropathy and bilious fluid in the stomach probable esophageal dysmotility Colonoscopy 06/03/24: Impression and Plan 4 colon polyps and [...] identified. E: RECTUM, POLYPECTOMY: - Hyperplastic polyp. Laboratory Results CBC CMP Basophil Absolute: 0 E9/L (03/02/24) A/G Ratio: 1.3 (03/02/24) Basophil Auto: 0.6 % (03/02/24) AGAP: 11 mEq/L (03/02/24) Eos Absolute: 0 E9/L (03/02/24) Albumin Lvl: [...] 89.5 fL (03/02/24) Chloride: 107 mmol/L (03/02/24) Monona Absolute: 0.5 E9/L (03/02/24) CO2: 27 mmol/L (03/02/24) Monona Auto: 8.2 % (03/02/24) Creatinine: 0.8 mg/dL (03/02/24) MPV: 6.9 fL (03/02/24) Globulin: 3 gm/dL (03/02/24) Neutro Absolute: 4.2 E9/L (03/02/24) Glucose Lvl: 97 mg/dL (03/02/24) Neutro Auto: 63.6 % (03/02/24) Potassium Lvl: 3.6 mmol/L (03/02/24) Platelet: 344 E9/L (03/02/24) Sodium Lvl: 141 mmol/L (03/02/24) RBC: 3.9 E12/L Low (03/02/24) Total Protein: 7 (more content not included)... Normal [facility] Comment on above: Result Comment: Elec tronically Signed By: Ricky ROBLERO, Luis Antonio Tiwari\chelsea\Date and Time Signed: 12/14/24 08:52 EST eGFRon 12-14-2024 eGFR 101 mL/min/1.73 m2 Normal >=59 [facility] Comment on above: Performed By: #### 1 [id number] #### [facility] [address] [place] [address] Ambulatory Visit Summaryon 0 11-21-2024 Ambulatory Visit Summary Ambulatory Visi t Summary JAM TOSCANO :1965 Visit Date:11/21/2024 Ambulatory Visit Instructions Your Diagnosis Ureteral stone with hydronephrosis Kidney stones BPH with urinary obstruction Feeling of incomplete bladder emptying Screening PSA (prostate specific antigen) Pyuria Multiple renal cysts Tests Performed CT Abdomen/Pelvis w/o Contrast -- Results Pending -- Please visit your patient portal for your results or contact your primary care physician. Your Care Team Attending Physician - DARRELL ROBLERO, Marcin Maguire Primary Care Physician - Jose L Lackey MD Referring Physician - Jose L Lackey MD This Is Your Medications List Contact prescribing physician if questions or concerns Turmeric atorvastatin (atorvastatin 20 mg Tab) cholecalciferol (cholecalciferol 5000 intl units oral capsule) ezetimibe (Zetia 10 mg Tab) folic acid (folic acid 1 mg Tab) lisinopril multivitamin with minerals (Multivitamins and Minerals) omeprazole (omeprazole 40 mg Ignacio-) sulfasalazine vedolizumab (Entyvio Pen 108 mg/0.68 mL subcutaneous solution) Procedures Performed Colonoscopy (06/03/2024), Esophagogastroduodenoscop y (06/03/2024), Colonoscopy (02/26/2024), Colonoscopy (03/23/2023), Cystoscopy (02/04/2021), Colonoscopy, Procedure on hip, Procedure on knee. Discharge Vitals Temperature (Oral) 37 ???C Heart Rate (Peripheral) 91 Respiratory Rate 18 Blood Pressure 118/80 Height 166 cm Height 65 in Weight 77.1 kg Weight 169.976 lb BMI 27.98 What to do next Scheduled Follow-Up Appointments Thursday 8:15 AM EST With: Ricky ROBLERO, Luis Antonio Tiwari Where: [facility] [address] [facility] [place] [address] [place] [id number]- You Need to Schedule the Following Appointments Follow Up with DARRELL ROBLERO, LOREE Bunch When: Where: [facility] [address], [place] [address]- Medications What How Much When Instructions Unchanged atorvastatin (atorvastatin 20 mg Tab) [...] physician if questions or concerns Unchanged lisinopril 10 Milligram By Mouth Contact prescribing physician if questions or concerns [...] if questions or concerns Unchanged vedolizumab (Entyvio Pen 108 mg/ 0.68 mL subcutaneous solution) 108 Milligram Contact prescribing physician if questions or concerns Allergies No Known Medication Allergies Problems Ongoing - Any problem that you are currently receiving treatment for. Acute diarrhea Adenomatous colon polyp Anemia Arthritis Bladder mass Bladder stone BPH with urinary obstruction Continuous severe abdominal pain Elevated alkaline phosphatase level Feeling of incomplete bladder emptying Gross hematuria Heartburn Hematochezia History of colon polyps Hyperlipemia Incomplete bladder emptying Kidney stones Multiple renal cysts Prostate calculus Pyuria Rectal bleed Screening PSA (prostate specific antigen) Ulcerative colitis, universal Dowell ulcerative colitis Ureteral stone with hydronephrosis Urethral stone Historical - Any problem that you are no longer receiving treatment for. Extreme obesity Ulcerative colitis Patient Survey You may receive a survey via text or e-mail asking about your office visit. Please share your experience with us by completing your survey. We appreciate your feedback and thank you for choosing us for your care. Education Materials Dietary Guidelines to Help Prevent Kidney Stones Kidney stones are deposits of minerals and salts that form inside your kidneys. Your risk of developing kidney stones may be greater depending on your diet, your lifestyle, the medicines you take, and whether you have certain medical conditions. Most people can lower their risks of developing kidney stones by following these dietary guidelines. Your dietitian may give you more specific instructions depending on your overall health and the type of kidney stones you tend to develop. What are (more content not included)... Normal [facility] CNPNon 11-21-2024 CNPN Telephone (SylantroULN) ----- JAM TOSCANO ([id number]) 1965 M Date Time Provider Department 11/21/24 DARRIAN DUBON During your visit today, we recorded the following information about you: Katt Phillips RN 11/21/2024 8:20 AM Signed Pt is identified by name and birthdate: Yes Patient calls LAST OV 10/05/24 Seropositive rheumatoid arthritis (HCC) Rheumatoid arthritis 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) On sulfasalazine therapy Ulcerative pancolitis (HCC) Other osteoporosis without current pathological fracture History of bisphosphonate therapy Counseling on health promotion and disease prevention - Calls today C/O Constant Bilateral dull/ache x 4 days. Rates pain 6/10. He has been taking Tylenol three times a day and it does help but not completely. Pain: Bilateral feet/fingers/shoulders Please advise Darrian Dubon MD 11/21/2024 8:52 AM Signed Thank you for the information provided. Patient seen recently and was in remission, had no pain. Please call patient to verify further: Any fevers, infections recently ? Any injury, trauma or change in activity ? Any joint swelling ? If having morning stiffness, how long does it last ? Is the pain in the joints or muscles or bone ? Are these pains similar to what he has had before ? thank you kindly, Estephania Lara LPN 11/21/2024 9:40 AM Signed Left message requesting return call. Chica Shi RN 11/22/2024 8:22 AM Signed -Pt returning call to office. Pt identified by name and date. Pt given message as detailed below and verbalized understanding. -States the only trauma/injury he has experienced recently is that he stubbed his RT middle toe 3 days ago. States this is bone char kiln tender with movement. Denies any change in color to the toe or any swelling. -Pt states the bottoms of his feet are sore with ambulation in the morning and his hands are stiff and painful when he tries to stretch them out. States the pain/stiffness is also in his BL shoulders and radiates into his upper back. -States his pain is worse in the morning and subsides a little after he showers and takes acetaminophen. States he takes 500 mg acetaminophen 3 tablets 3x daily. Cautioned Pt against exceeding the daily maximum for this medication. -Pt states he has to take this amount of acetaminophen daily to be able to tolerate the pain. States he still has pain on this dose, but it is a little more tolerable. -Pt frustrated with the questions asked. States he needs to go back on the steroids he was prescribed by Dr. Lackey for similar pain issues. States he may have to go back to seeing Dr. Lackey. Pt then apologized and ended the call. Darrian Dubon MD 11/22/2024 8:27 PM Signed Thank you for the excellent triage. We understand his frustration. If patient would like to see Dr. Lackey, that is good, especially if he can be seen this week for evaluation of his pains. He can update us after he has seen his PCP. If his pains are not resolve and if any joint swelling, I recommend obtaining labs and f/u apt in office with us in rheum. Can offer apt with me or any rheum ANGÉLICA (CLEANING PROFESSIONAL or PA) who has opening soon. thank you kindly, Estephania Lara LPN 11/23/2024 8:01 AM Signed Please offer appt with Dr Dubon or CLEANING PROFESSIONAL, if patient still interested. Jordyn Roberson 11/23/2024 9:[address] Dubon - I tried reaching Ms. Toscano via phone (several times), but I continued to reach her voicemail. I left her a message letting her know we scheduled her an appointment with you for today, 11/23/24 at 11:40am. I asked her to call back if she is unable to make this appointment. Patient does not have MyChart. Thank you, Jordyn Schulte PSS November 23, 2024 9:03 AM Angelina Nguyen 11/23/2024 9:36 AM Signed Patient returned call and can not make it today, seen his PCP for the issue.please advise. Darrian Dubon MD 11/23/2024 12:37 PM Signed Thank you for trying. Since has seen his PCP, he would not need sooner apt with me. thank you kindly, fa Allergies As of Date: 11/21/2024 (No Known Allergies) Date Reviewed: 10/05/2024 Reviewed by: Henrique Cordoba MA - Fully Assessed Reason for Visit: Patient Update [1234] Prescriptions as of 11/23/2024 - ENTYVIO 300 mg injection - sulfaSALAzine EC (AZULFIDINE EN) 500 mg EC tablet TAKE 2 TABLETS BY MOUTH 4 TIMES A DAY - turmeric root extract 500 mg cap Take 500 mg by mouth once daily. Take one(1) tablet three times daily. - tamsulosin (FLOMAX) 0.4 mg (Discontinued) Take 1 capsule by mouth every afternoon. - folic acid 1 mg tablet Take 1 mg by mouth once daily. - Cholecalciferol, Vitamin D3, 5,000 unit cap Take 5,000 Units by mouth once daily. patient taking once daily with food - ezetimibe (ZETIA) 10 mg tablet Take 10 mg by mouth once daily. - atorvastatin (LIPITOR (more content not included)... Normal [facility] PSA Totalon 11-21-2024 Prostate specific Ag [Mass/Vol] 3.3 ng/mL Normal 0.1-3.5 [facility] Comment on above: Result Comment: The concentration of PSA determined by different manufacturers can vary due to differences in assay methods and reagent specificity. Values obtained from different assay methods cannot be used interchangeably. The methodology used for this result was chemiluminescence using [employer]'s Access Hybritech PSA reagent. Performed By: #### 1 [id number] #### [facility] [address] [place] [address] [facility] 10-05-2024 [facility] Office Visit (ANGEL ) ----- OPALJAM DONALD ([id number]) 1965 M Date Time Provider Department 10/05/24 7:20 AM DARRIAN DUBON During your visit today, we recorded the following information about you: Pulse Blood pressure Weight 66/minute 128/76 77.7 kg Darrian Dubon MD 10/16/2024 7:47 PM Signed FOLLOW UP VISIT Patient's Name: Jam Murguiaaletha Melissa [place] [facility] [address] PCP: Jose L Lackey MD [address] [place] [phone] Consult Requested by: Jose L Lackey MD [address] [place] [id number] Other physicians: Senior Housekeeper prev. Nel Lebron MD (his prev. medical concierge left- Ronald Brown MD) ; Now following [...] No stiffness He is on sulfasalazine per medical concierge for his UC and this has been controlling his RA He is pleased with his treatment regimen He also states that his IBD is well controlled, states told is in remission, on Entyvio Doing exercise and working with sap trainer at the gym and will be going [...] in IBD and is following with local medical concierge for that. Has been on Humira since Sep 2020 (started with 80 mg loading dose and since has been on 40 mg every 2 wks) He was pleased with Enbrel response to his RA and later was switched to Humira, reports has similar benefit and is pleased with response. His medical concierge switched him to Humira for optimal mgt of IBD and he feels this has helped his IBD better. Reports still gets 8 BM's a day, does not have BM at night, does not have to wake up from sleep. Has been following with his medical concierge for his UC Had colonoscopy 11/22/2021 with reported marked improvement in asc/transv/desc colon and severe active in rectum, histopath with active colitis with erosions. States Dr. Lebron has started him on rectal enemas. Recent colonoscopy with reported active colitis. He tells me that he continues to have multiple BM's; His medical concierge prescribed pred. course, completed recently. No jt [...] us, he is on Humira per his Senior Housekeeper He is off Enbrel, was switched to Humira by his medical concierge. (previously was on Enbrel 25 mg twice a wk and has been in remission since on Enbrel and very pleased with his treatment regimen) He is on Humira 40 mg every 2 wks by his Senior Housekeeper He is on sulfasalazine, Humira and mesalamine enemas per his medical concierge I have reviewed benefits of a whole food plant based diet He consumes dairy, cheese, sausage, hamburger. I have advised him on avoiding meats and dairy and reviewed reports and patient experience with flare of IBD and RA, as well as gastrointestinal dysbiosis. I advised him on a whole foods plant based diet. 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 Normal [facility] Ambulatory Visit Summaryon 0 06-13-2024 Ambulatory Visit Summary Ambulatory Visi t Summary ARNULFOJAM SCHUSTER :1965 Visit Date:06/13/2024 Ambulatory Visit Instructions Your Diagnosis Dowell ulcerative colitis History of colon polyps Elevated [...] (Entyvio 300 mg intravenous injection) See instructions Dowell ulcerative colitis 300 mg/ kg at week [...] Prostate calculus Rectal bleed Ulcerative colitis, universal Dowell ulcerative colitis Urethral stone Historical - Any problem that you are no longer receiving treatment for. Extreme obesity Ulcerative colitis Patient Survey You may receive a survey via text or e-mail asking about your office visit. Please share your experience with us by completing your survey. We appreciate your feedback and thank you for choosing us for your care. Normal [facility] Gastroenterology Office/Clin ic Noteon 06-13-2024 Gastroenterology Office/Clinic [...] referral to IBD specialist and Colorectal at [facility]- patient declined at this time and would like to repeat colon in 6 months at [facility] He has also RA, no specific therapy for now, follows with Dr. Valente at [facility] We discussed that having this lesion in [...] 89.5 fL (03/02/24) Chloride: 107 mmol/L (03/02/24) Monona Absolute: 0.5 E9/L (03/02/24) CO2: 27 mmol/L (03/02/24) Monona Auto: 8.2 % (03/02/24) Creatinine: 0.8 mg/dL [...] WT: 167.2 lb BMI: 26.93 Assessment/Plan 1. Dowell ulcerative colitis (K51.00: Ulcerative (chronic) pancolitis without complications) UC History: Severe ulcerative colitis , dx 03/2015, started on (more content not included)... Normal [facility] Comment on above: Result Comment: Elec tronically Signed By: Ricky ROBLERO, Luis Antonio Tiwari\.br\Date and Time Signed: 06/13/24 10:35 EDT Surgical Pathology Reporton 06-07-2024 Surgical Pathology Report [facility] [address] [place] [address]- Surgical Pathology Report Collected Date/Time: 06/03/2024 10:08 [...] EDT Gisele ROBLERO, Asim Jaquez MD, Asim Arroyo Gross Description C: Received in formalin labeled [...] is entirely submitted in one cassette. (DC) DC:[facility] Microscopic Description A-E: Microscopic examination performed unless gross only specified. The use of one or more reagents in the above tests is regulated as an analyte specific reagent (ASR). The test or tests are ordered following initial H&E microscopic examination. The performance characteristics were determined by the Laboratory of [facility]. They have not been cleared or approved by the US Food and Drug Administration. The FDA has determined that such clearance or approval is not necessary. These tests are used for clinical purposes. They should not be regarded as investigational or for research. Appropriate positive and negative controls are performed and are acceptable. Normal [facility] Comment on above: Performed By: #### [id number] #### [facility] [address] [place] [address] Main OR Intraoperative Recor don 06-06-2024 Main OR Intraoperative Record Main OR Intraoperative Record IntraOp Document Type FT Summary Primary Physician: Gisele ROBLERO, Asim Arroyo Finalized Date/Time: 06/06/24 09:08:21 Pt. Name: JAM TOSCANO /Sex: 1965 Male Med Rec #: [id number] Physician: Ricky ROBLERO, Luis Antonio Tiwari Financial #: [id number] Pt. Type: O Room/Bed: / Admit/Disch: 06/03/24 08:47:05 - 06/03/24 23:59:59 Institution: Case Times FT Entry 1 Patient Times In Room 06/03/24 10:03:00 Out Room 06/03/24 10:39:00 Procedure Times Start 06/03/24 10:07:00 Stop 06/03/24 10:37:00 Anesthesia Times Start 06/03/24 10:03:00 Stop 06/03/24 10:39:00 Time at [facility] 06/03/24 10:12:00 Last Modified By: Alonzo RAMESH, Lauren Espinosa 06/03/24 10:38:12 General Comments: 1008 EGD completed. /MD,RN 1011 Colonoscopy started. /MD,RN 06/06/24 Chart opened for charge review per Trisha Mario RN. [place] Case Attendance FT Entry 1 Entry 2 Entry 3 Case Attendee Kimberly CHÁVEZ, Raejev Jaquez MD, Asim Rosado RN, Lauren Espinosa Role Performed Anesthesiologist Surgeon - Primary Poultry Cutter - Primary Arc Trimmer Time In 06/03/24 10:03:00 06/03/24 10:03:00 06/03/24 [...] Gisele Nguyen MD, Asim Arroyo, Alonzo RAMESH, Jeniffer Horowitz INSTRUCTOR PSYCHIATRIC AIDE, Claire Villalobos Time Out Complete 06/03/24 10:05:00 [...] polyps x2, rectal polyp Last Modified By: Lauren Rosado RN 06/03/24 10:35:16 Post-Care Text: The patient is free from signs and symptoms of infection Skin Assessment (Pre Procedure) FT Pre-Care Text: Implements protective measures to prevent skin/ tissue injury due to thermal or mechanical sources Evaluates for signs and symptoms of physical injury to skin and tissue Entry 1 Skin Integrity Intact, [place], Warm, and Skin Abnormality No Dry Outcomes Met? Yes Last Modified By: (more content not included)... Normal [facility] Colonoscopy Procedure Report on 06-03-2024 Esophagogastroduodenoscop y [...] mL, IV, 20 mL/hr, Routine, Start date 07/19/24 6:43:00 EDT, 50 hour(s), Total volume (mL): [...] stomach 3. Normal duodenum. Images Procedure images: Rec1_hd_video__T _[id number].jpg Rec1_hd_video____28_[id number].jpg Rec1_hd_video___[id number].jpg Rec1_hd_video___[id number].jpg Rec1_hd_video_2023__T [id number].jpg Rec1_hd_video__T _[id number].jpg Rec1_hd_video__[id number].jpg Rec1_hd_video___54_[id number].jpg Rec1_hd_video_T [id number].jpg . Post-Procedure Complications: none. Estimated blood loss: minimal. Specimens: sent to pathology. Devices/ implants: none left in place. Impression and Plan Gastropathy and bilious fluid in the stomach probable esophageal dysmotility Recommendations: -Resume previous diet -Resume home medications -Await pathology results, follow in GI clinic in 1-2 after discharge EGd with bx Normal [facility] Comment on above: Other Comment: Sheila trinh Attachment - attachment storage system not supported [id number] Can be viewed in source systemMissing Attachment - attachment storage system not supported [id number] Can be viewed in source systemMissing Attachment - attachment storage system not supported [id number] Can be viewed in source systemMissing Attachment - attachment storage system not supported [id number] Can be viewed in source systemMissing Attachment - attachment storage system not supported [id number] Can be viewed in source systemMissing Attachment - attachment storage system not supported [id number] Can be viewed in source systemMissing Attachment - attachment storage system not supported [id number] Can be viewed in source systemMissing Attachment - attachment storage system not supported [id number] Can be viewed in source systemMissing Attachment - attachment storage system not supported [id number] Can be viewed in source system Discharge [...] Follow-Up Appointments Thursday 9:15 AM EDT With: Luis Antonio García MD Where: [facility] Normal [facility] Comment on above: Result Comment: Elec tronically Signed By: Jose RAMESH, Mary Lou\.br\Date and Time Signed: 06/03/24 10:51 EDT Main OR PACU I Recordon 07-1 9-2024 Main OR PACU I Record Main OR PACU I Rec ord PACU Phase I Document Type FT Summary Primary Physician: Asim Jaquez MD Finalized Date/Time: 06/03/24 14:21:42 Pt. Name: JAM TOSCANO Don/Sex: 1965 Male Med Rec #: [id number] Physician: Luis Antonio Gacría MD Financial #: [id number] Pt. Type: O Room/Bed: / Admit/Disch: 06/03/24 [...] Mary Lou Garcia RN 06/03/24 14:21 Normal [facility] Main OR Preoperative Recordo n 06-03-2024 Main OR Preoperative Record Main OR Preoperative Record Holding Area Document Type FT Summary Primary Physician: Asim Jaquez MD Finalized Date/Time: 06/03/24 09:08:09 Pt. Name: JAM TOSCANO D.O.B./Sex: 1965 Male Med Rec #: [id number] Physician: Luis Antonio García MD Financial #: [id number] Pt. Type: O Room/Bed: / Admit/Disch: 06/03/24 [...] 06/03/24 09:02 Jaguar Herrera RN 06/03/24 09:08 [facility] Liveron 06-01-2024 US Liver Exam Date/Time: 05/30/2024 [...] Zimmerman MD Transcribed by: BERNARD Technologist: ZAIRE [facility] CNOVon 05-09-2024 CNOV Office Visit (ANGEL ) ----- JAM TOSCANO ([id number]) 1965 M Date Time Provider Department 05/09/24 9:00 AM NIDIA WESTON During your visit today, we recorded the following information about you: Temperature Pulse Blood pressure Weight 98.4 degrees 89/minute 118/79 76.3 kg Nidia Weston, [employer].AUTOMOTIVE PARTS CLERK 05/09/2024 10:39 AM Signed Follow up Jam [...] D defi (more content not included)... [facility] [facility] Physician Orderon 05-05-2024 Physician Order [id number]#1.00TIFF Normal [facility] CNPN Telephone (SylantroUAAbcellute) ----- JAM TOSCANO ([id number]) 1965 M Date Time Provider Department 05/03/24 BEN MARTINEZ During your visit today, we recorded the following information about you: Estephania Devine LPN 05/03/2024 10:55 AM Signed Received lab results from [facility]. Results placed on your desk at [facility] for review. Kelli Madrid MA 05/05/2024 8:28 AM Signed Pt is scheduled with Nidia and infusion on Thursday -- Ben Martinez MD 05/05/2024 2:07 PM Signed For chart: [place] 05/02/24 high esr 79 (normal<20mm/hr), normal vitamin D 51.4, cmp, creat 0.94, calcium 8.7, crp<0.5 (normal<0.5mg/dL); Allergies As of Date: 05/03/2024 (No Known Allergies) Date Reviewed: 04/11/2024 Reviewed by: Nidia Weston, ADEOLA.AUTOMOTIVE PARTS CLERK - Fully Assessed Reason for Visit: Results [...] Encounter Status:Closed [facility] Tele[facility] (ANGEL) ----- RIMMAJAM ([id number]) 1965 M Date Time Provider Department 04/11/24 NIDIA WESTON During your visit today, we recorded the following information about you: Nidia Weston APRN.JOSE 04/11/2024 7:56 PM Addendum Please call dentist for clearance for op med reclast [facility] dental [phone] Please also call patient Xray showed Severe changes of chronic inflammatory arthritis, similar to prior. Left hand metallic foreign body. Did he injury his left hand prior ? Did he have eval on this prior if never eval I did place a consult to ortho Kelli Madrid MA 04/12/2024 12:11 PM Signed Called [facility] dental [phone] currently at lunch - will call back after 1pm Kelli Madrid MA 04/12/2024 2:35 PM Signed Spoke with [facility] requesting dental clearance letter be faxed to [phone] faxed with confirmation Notified patient of below, [...] Known Allergies) Date Reviewed: 04/11/2024 Reviewed by: Ndiia Weston APRN.AUTOMOTIVE PARTS CLERK - Fully Assessed Reason for Visit: Patient Update [1234] Primary Visit Diagnosis:Foreign body of left hand, sequela [S60.552S] Order(s):CONSULT TO ORTHOPAEDICS [9026] Order #: [id number]: 1 FUTURE Prescriptions as of 05/03/2024 - [...] Status:Closed by KELLI MADRID on 04/12/24 Normal [facility] Pre-Certification Formon Pre-Certification Form [id number]#1.00TIFF Normal [facility] CNOVon 03-14-2024 CNOV Office Visit (ANGEL ) ----- JAM TOSCANO ([id number]) 1965 M Date Time Provider Department 03/14/24 9:00 AM NIDIA WESTON During your visit today, we recorded the following information about you: Pulse Blood pressure Weight 97/minute 121/83 74.9 kg Nidia Weston, [employer].AUTOMOTIVE PARTS CLERK 04/11/2024 7:56 PM Signed Follow up Jam [...] work or invasive procedures No dental concerns [facility] dental [phone] No serious infections or fevers Stopped celebrex [...] arthritis invo (more content not included)... Normal [facility] XR HAND 3V PA/LAT/OBL BILon 03-14-2024 XR [...] to prior. Left hand metallic foreign body. Battery Checker: CODY Transcribe Date/Time: Mar 14 2024 1:31P Dictated by : HORACIO DAWSON MD This examination was interpreted and the report reviewed and electronically signed by: HORACIO DAWSON MD on Mar 14 2024 5:53PM EST [id number] Normal [facility] XR Hand - bilateral PA and L ateral and Obliqueon 03-14-2024 IMPRESSION: Severe changes of chronic inflammatory arthritis, similar to prior. Left hand metallic foreign body. Battery Checker: CODY Transcribe Date/Time: Mar 14 2024 1:31P Dictated by : HORACIO DAWSON MD This examination was interpreted and the report reviewed and electronically signed by: HORACIO DAWSON MD on Mar 14 2024 5:53PM EST DIVISION OF RADIOLOGY * * *Final Report* [...] of the [facility]. DIVISION OF RADIOLOGY Provider, Mu Hare - 03/14/2024 * * *Final Report* * [...] to prior. Left hand metallic foreign body. Battery Checker: PSCB Transcribe Date/Time: Mar 14 2024 1:31P Dictated by : HORACIO DAWSON MD This examination was interpreted and the report reviewed and electronically signed by: HORACIO DAWSON MD on Mar 14 2024 5:53PM [facility] Radiology Study observation (narrative) Franky abbott [facility] XR Hand - bilateral PA and L ateral and ObliqueOrdered By: Ccf Provider on 03-14-2024 [facility] Consent for Procedure/Surger yon 03-07-2024 Consent for Procedure/Surgery [id number]#1.00TIFF Normal [facility] Ambulatory Visit Summaryon 0 03-04-2024 Ambulatory Visit [...] With: Ricky ROBLERO, Luis Antonio Tiwari Where: [facility] Invalid Interpretation Code History of colon polyps [facility] Gastroenterology Office/Clin ic Noteon 03-04-2024 Gastroenterology Office/Clinic Note Chief Complaint universal UC HPI Staff Patient is a 58 year old male who presents today for a follow up to Colonoscopy on 02/26/24. Still taking Entyvio q8 weeks. Last visit 12/11/23 w/Dr. García: Assessment/Plan 1. Dowell ulcerative colitis (K51.00: Ulcerative (chronic) pancolitis without [...] for now, follows with Dr. Valente at [facility] For PCP, please make sure patient is uptodate for the health maintenance given the underlying IBD -Influenza vaccine annually -COVID vaccine -Pneumococcal PCV13 -Pneumococcal PPSV23 Cancer prevention -Skin check: annual check up with dermatology -Colonoscopy: due Other -Anemia/Iron: Ferritin, TIBC, Iron (all yearly): taking Iron -DEXA scan Following kyra Valente -Smoking cessation: quit 2011 2. Adenomatous [...] 89.5 fL (03/02/24) Chloride: 107 mmol/L (03/02/24) [place]ona Absolute: 0.5 E9/L (03/02/24) CO2: 27 mmol/L (03/02/24) [place]ona Auto: 8.2 % (03/02/24) Creatinine: 0.8 mg/dL [...] History of Present Illness Still taking Entyvio [id number], patient states this is the best hes [...] 126/80 HT (more content not included)... Normal [facility] Comment on above: Result Comment: Elec tronically Signed By: Ricky ROBLERO, Luis Antonio Tiwari\.br\Date and Time Signed: 03/04/24 09:28 EDT\.br\Electronically Co-Signed By: Naz Gupta MA\.br\Date and Time Co-Signed: 03/04/24 09:23 EDT IntraOperative Documentson 0 03-04-2024 IntraOperative Documents [id number]#1.00TIFF Normal [facility] CBC w/ Auto Diffon 4 Basophils/100 WBC (Bld) 0.6 % Normal 0.0-2.0 [facility] Comment on above: Performed By: #### 2 483385, 9292192, [id number] #### [facility] [address] [place] [address] Basophils/Leukocytes Auto (Bld) [Pure # fraction] 0.0 E9/L Normal 0.0-0.2 [facility] Comment on above: Performed By: #### 2 395374, 1712398, 14171315 #### [facility] [address] [place] [address] Eosinophils (Bld) [#/Vol] 0.0 E9/L Normal 0.0-0.5 [facility] Comment on above: Performed By: #### 2 670336, 5005968, 41082026 #### [facility] [address] [place] [address] Eosinophils/100 WBC (Bld) 0.0 % Normal 0.0-8.0 [facility] Comment on above: Performed By: #### 2 090355, 6289656, 43624773 #### [facility] [address] [place] [address] Erythrocyte distribution width (RBC) [Ratio] 15.1 % High 10.9-14.2 [facility] Comment on above: Performed By: #### 2 981486, 4939050, 07491369 #### [facility] [address] [place] [address] Hematocrit (Bld) [Volume fraction] 34.5 % Low 37.7-49.0 [facility] Comment on above: Performed By: #### 2 666163, 9258695, 86628664 #### [facility] [address] [place] [address] Hemoglobin (Bld) [Mass/Vol] 11.3 g/dL Low 13.5-17.5 [facility] Comment on above: Performed By: #### 2 966021, 6412518, 41647652 #### [facility] [address] [place] [address] Lymphocytes (Bld) [#/Vol] 1.8 E9/L Normal 1.0-4.0 [facility] Comment on above: Performed By: #### 2 063071, 9671024, 59638128 #### [facility] [address] [place] [address] Lymphocytes/100 WBC (Bld) 27.6 % Normal 14.0-50.0 [facility] Comment on above: Performed By: #### 2 858816, 6707299, 27301997 #### [facility] [address] [place] [address]779 MCH (RBC) [Entitic mass] 29.4 pg Normal 27.0-34.0 [facility] Comment on above: Performed By: #### 2 473976, 3663311, 30812667 #### [facility] [address] [place] [address] 52594 MCHC (RBC) [Mass/Vol] 32.9 g/dL Normal 31.4-36.0 [facility] Comment on above: Performed By: #### 2 945163, 3105555, 57972422 #### [facility] [address] [place] [address]5364 MCV (RBC) [Entitic vol] 89.5 fL Normal 80.0-100.0 F [facility] Comment on above: Performed By: #### 2 176409, 6424062, 40666372 #### [facility] [address] [place] [address] Monocytes (Bld) [#/Vol] 0.5 E9/L Normal 0.2-1.0 [facility] Comment on above: Performed By: #### 2 284831, 7128040, 14553380 #### [facility] [address] [place] [address] Neutrophils (Bld) [#/Vol] 4.2 E9/L Normal 2.0-7.5 [facility] Comment on above: Performed By: #### 2 560954, 2982950, 40694690 #### [facility] [address] [place] [address]228 Neutrophils/100 WBC (Bld) 63.6 % Normal 36.0-75.0 [facility] Comment on above: Performed By: #### 2 916034, 2483701, 18899431 #### [facility] [address] [place] [address] Platelet 344.0 E9/L Normal 150.0-500. 0 [facility] Comment on above: Performed By: #### 2 973982, 1934712, 12007872 #### [facility] [address] [place] [address] Platelet mean volume (Bld) [Entitic vol] 6.9 fL Normal 6.4-10.8 [facility] Comment on above: Performed By: #### 2 529920, 3283934, 18729083 #### [facility] [address] [place] [address] 14077 RBC (Bld) [#/Vol] 3.9 E12/L Low 4.3-5.9 [facility] Comment on above: Performed By: #### 2 284336, 1161446, 39302100 #### [facility] [address] [place] [address] WBC corrected for nucl RBC Auto (Bld) [#/Vol] 6.6 E9/L Normal 4.0-11.0 [facility] Comment on above: Performed By: #### 2 513197, 3794170, 80370471 #### [facility] [address] [place] [address] CMPon 03-02-2024 Albumin [Mass/Vol] 4.0 g/dL Normal 3.3-5.0 [facility] Comment on above: Performed By: #### 2 477981, 5878338, 25005301 #### [facility] [address] [place] [address] 13883 Albumin/Globulin (S) [Mass conc ratio] 1.3 Normal 1.1-2.2 [facility] Comment on above: Performed By: #### 2 925694, 0703387, 79529959 #### [facility] [address] [place] [address]365 ALP [Catalytic activity/Vol] 139 Int._Unit/L High 21-98 [facility] Comment on above: Performed By: #### 2 124735, 0279076, 15446317 #### [facility] [address] [place] [address] ALT No additional P-5'-P [Catalytic activity/Vol] 20 Int._Unit/L Normal 6-46 [facility] Comment on above: Performed By: #### 2 391194, 9226228, 98727241 #### [facility] [address] [place] [address] Anion gap [Moles/Vol] 11 mmol/L Normal 6-16 [facility] Comment on above: Performed By: #### 2 603152, 2941208, 05856802 #### [facility] [address] [place] [address] AST [Catalytic activity/Vol] 25 Int._Unit/L Normal 5-43 [facility] Comment on above: Performed By: #### 2 843392, 5159156, 44314125 #### [facility] [address] [place] [address] Bilirubin [Mass/Vol] 0.3 mg/dL Normal 0.0-1.1 [facility] Comment on above: Performed By: #### 2 327008, 0629220, 89753178 #### [facility] [address] [place] [address] Calcium [Mass/Vol] 9.4 mg/dL Normal 8.9-11.1 [facility] Comment on above: Performed By: #### 2 610291, 6836829, 66869113 #### [facility] [address] [place] [address] Chloride [Moles/Vol] 107 mmol/L Normal 101-111 [facility] Comment on above: Performed By: #### 2 475911, 1259987, 16721514 #### [facility] [address] [place] [address] CO2 [Moles/Vol] 27 mmol/L Normal 21-31 [facility] Comment on above: Performed By: #### 2 067345, 9039263, 86082702 #### [facility] [address] [place] [address] Creatinine [Mass/Vol] 0.8 mg/dL Normal 0.5-1.3 [facility] Comment on above: Performed By: #### 2 410183, 6098120, 75405907 #### [facility] [address] [place] [address] Globulin (S) [Mass/Vol] 3.0 g/dL Normal 1.4-4.0 [facility] Comment on above: Performed By: #### 2 349710, 9222446, 30195704 #### [facility] [address] [place] [address] Glucose [Mass/Vol] 97 mg/dL Normal 55-199 [facility] Comment on above: Performed By: #### 2 843028, 5164462, 85940631 #### [facility] [address] [place] [address] Potassium [Moles/Vol] 3.6 mmol/L Normal 3.5-5.3 [facility] Comment on above: Performed By: #### 2 060543, 5766709, 34776718 #### [facility] [address] [place] [address] Protein [Mass/Vol] 7.0 g/dL Normal 6.0-7.8 [facility] Comment on above: Performed By: #### 2 919135, 5363710, 80217431 #### [facility] [address] [place] [address] Sodium [Moles/Vol] 141 mmol/L Normal 135-145 [facility] Comment on above: Performed By: #### 2 090021, 5251506, 99443686 #### [facility] [address] [place] [address] Urea nitrogen [Mass/Vol] 12 mg/dL Normal 5-21 [facility] Comment on above: Performed By: #### 2 081905, 7875026, 70545327 #### [facility] [address] [place] [address] Urea nitrogen/Creatinine [Mass ratio] 15 No Units Normal 10-20 [facility] Comment on above: Performed By: #### 2 036223, 2573842, 05435094 #### [facility] [address] [place] [address] Consent for Treatmenton 02-14 Consent for Treatment [id number]#1.00TIFF Normal [facility] Progress Note-Physicianon Progress Note-Physician Patient: JAM QUINTANA MRN: Age: 58 years Sex: Male : 1965 Associated Diagnoses: None Author: MD Zabala Ahmad F Postoperative Information Postoperative disposition: Postoperative disposition: To PACU. Optimetrix number: Optimetrix number [id number]. Anesthetic utilized: General. Health Status Allergies: Allergic [...] meets criteria ( To home ). Normal [facility] Comment on above: Result Comment: Elec tronically [...] Daily, # 10 cap(s), Refills(s) 0, [facility] 168, cm, 10/23/23 13:41:00 EST, Height/Length Dosing, 75.1, kg, 10/23/23 13:41:00 EST, Weight Dosing Humira Pen Crohns/Ulcer Colitis/Hidradenitis Suppurativa Starterr Pack 80 mg/0.8 mL subcutaneous ki...: See Instructions, Inject 160 mg on day one, Inject 80 mg on day 15, # 1 kit(s), Refills(s) 0, Pharmacy: [facility]/pharmacy #6177, 167, cm, 09/04/20 8:15:00 EDT, Height/Length Dosing, 75.8, kg, 09/04/20 8:15:00 EDT, Weight Dosing Zofran ODT 4 mg Tab-Dis: 4 mg = 1 tab(s), Oral, q8hr, PRN Nausea/Vomiting, # 30 tab(s), Refills(s) 0, Pharmacy: [facility]/pharmacy #6177, 168, cm, 10/23/23 13:41:00 EST, Height/Length Dosing, 75.1, kg, 10/23/23 13:41:00 EST, Weight Dosing mesalamine 4 g/60 mL rectal enema: = 1 EA, Rectal, Once a day (at bedtime), # 30 EA, Refills(s) 3, Pharmacy: [facility]/pharmacy #6177, 168, cm, 03/23/23 8:23:00 EDT, Height/Length Dosing, 81.1, kg, 03/23/23 8:23:00 EDT, Weight Dosing mesalamine 4 g/60 mL rectal enema: = 1 EA, Rectal, Once a day (at bedtime), # 30 EA, Refills(s) 6, [facility], 168, cm, 10/16/22 13:49:00 EST, Height/Length Dosing, 80.6, kg, 10/16/22 13:49:00 EST, Weight Dosing omeprazole 40 mg Cap-DR: 40 mg = 1 cap(s), Oral, Daily, # 30 cap(s), Refills(s) 11, [facility], 167, cm, 09/04/20 8:15:00 EDT, Height/Length Dosing, 75.8, kg, 09/04/20 8:15:00 EDT, Weight Dosing sulfasalazine 500 mg oral enteric coated tablet: 1,000 mg = 2 tab(s), Oral, QID, X 30 day(s), # 240 tab(s), Refills(s) 11, [facility], 168, cm, 04/01/23 8:58:00 EDT, Height/Length [...] list: All Problems Hyperlipemia / SNOMED CT 82304591 / Confirmed Rectal bleed / SNOMED CT 465076082 / Confirmed Heartburn / SNOMED CT 34487068 / Confirmed Ulcerative colitis, universal / SNOMED CT 4404940355 / Confirmed Bladder stone / SNOMED CT 460970470 / Confirmed BPH with urinary obstruction / SNOMED CT 7715406419 / Confirmed Incomplete bladder emptying / SNOMED CT 384138313 / Confirmed Gross hematuria / SNOMED CT 977085280 / Confirmed Kidney stones / SNOMED CT 958149354 / Confirmed Bladder mass / SNOMED CT 8392947407 / Confirmed Urethral stone / SNOMED CT 20291841 / Confirmed Prostate calculus / SNOMED CT 232779080 / Confirmed Continuous severe abdominal pain / SNOMED CT 88538864 / Confirmed Hematochezia / SNOMED CT 3381370903 / Confirmed Acute diarrhea / SNOMED CT 1949328509 / Confirmed Dowell ulcerative colitis / SNOMED CT 2946888882 / Confirmed Adenomatous colon polyp / SNOMED CT 2689038806 / Confirmed Resolved: Extreme obesity / SNOMED CT 27U23492-6FE9-37P4-L974-6 [id number] Resolved: Ulcerative colitis / SNOMED CT 337381761 Canceled: Ulcerative colitis / SNOMED CT 425132301 Histories Past Medical History: Resolved Extreme obesity (95U59824-6RV1-14H8-T807- [id number]): Resolved. Ulcerative colitis (224138156): Resolved. Family History: Procedure history: Colonoscopy (935353073) on 02/26/2024 at 58 Years. Colonoscopy (411845055) on 03/23/2023 at 57 Years. Cystoscopy (83297406) on 02/04/2021 at 55 Years. Colonoscopy (964501429). right hip replacement (180337040). replacement on both knees (299293366). Hernia repair (31522743). Social History Soc (more content not included)... Normal [facility] Comment on above: Result Comment: Elec tronically Signed By: MD Vj, Rigoberto Espinosa\.br\Date and Time Signed: 03/02/24 14:21 EDT eGFRon 03-02-2024 eGFR 101 mL/min/1.73 m2 Normal >=59 [facility] Comment on above: Order Comment: Order added by Discern Expert. Performed By: #### 2 914060, 9931899, 45791882 #### [facility] [address] [place] [address] Consenton 02-29-2024 Consent [id number]#1.00TIFF Normal [facility] Discharge Instructionson Discharge Instructions [id number]#1.00TIFF Normal [facility] Main OR Intraoperative Recor don 02-29-2024 Main OR Intraoperative Record IntraOp Document Type FT Summary Primary Physician: Luis Antonio García MD Finalized Date/Time: 02/29/24 10:32:28 Pt. Name: JAM TOSCANO/Sex: 1965 Male Med Rec #: [id number] Physician: Luis Antonio García MD Financial #: [id number] Pt. Type: O Room/Bed: / Admit/Disch: 02/26/24 [...] RN Role Performed EDGAR Surgeon - Primary Poultry Cutter - Primary Time In 02/26/24 10:07:00 02/26/24 10:07:00 02/26/24 10:07:00 Time Out 02/26/24 10:32:00 02/26/24 10:32:00 02/26/24 10:32:00 Procedure COLONOSCOPY(.) COLONOSCOPY(.) COLONOSCOPY(.) Comments Dr. Zabala supervising Last Modified By: Stacy RN, Donna Kumar RN, Donna Pollard RN 02/26/24 [...] and tissue Entry 1 Skin Integrity Intact, [place], Warm, and Skin Abnormality No Dry Outcomes Met? Yes Last Modified By: Donna Kumar RN 02/26/24 10:16:00 Post-Care Text: The patient is free from signs and symptoms of injury caused by extraneous objects Patient Positioning FT Pre-Care Text: Identifies physical alterations that require additional precautions for proce (more content not included)... [facility] Postoperative Documentson Postoperative Documents [id number]#1.00TIFF [facility] Consent for Treatmenton 02-14 Consent for Treatment [id number]#1.00TIFF Normal [facility] Discharge Instructionson Discharge Instructions JAM TOSCANO :1965 Visit Date:02/26/2024 Inpatient Discharge Instructions Your Care Team Admitting Physician - Luis Antonio García MD Referring Physician - Luis Antonio García MD Reason for Your Visit [facility] Your [...] For Persistent or heavy bleeding Pharmacy Information [facility] [place] Discharge Instructions Discharge Instructions New Follow Up Appointments after Discharge Follow Up with Luis Antonio García When: Within 1 to 2 weeks Comments: Call for any problems. Where: [facility], [address] [address]- [phone] Business (1) Medications What How Much When Why [...] (Entyvio 300 mg intravenous injection) See instructions Dowell ulcerative colitis 300 mg/ kg at week [...] Prostate calculus Rectal bleed Ulcerative colitis, universal Dowell ulcerative colitis Urethral stone Historical - Any [...] referred to (more content not included)... Normal [facility] Comment on above: Result Comment: Elec tronically Signed By: Lalo RAMESH, Lesli\.br\Date and Time Signed: 02/26/24 10:43 EDT Endoscopic [...] history and physical Documented on chart. Colonoscopy (529975102) on 03/23/2023 at 57 Years. Cystoscopy (39105243) on 02/04/2021 at 55 Years. Colonoscopy (730203585). right hip replacement (689227719). replacement on both knees (043063558). Hernia repair (53439947).. Past Medical History Resolved Extreme obesity (06X38951-4TO4-55V0-Y146- 2B2HI58DXAQA): Resolved. Ulcerative colitis (095648932): Resolved.. Family History . Procedure History Colonoscopy (648545240) on 03/23/2023 at 57 Years. Cystoscopy (96406415) on 02/04/2021 at 55 Years. Colonoscopy (221835108). right hip replacement (370563178). replacement on both knees (363916765). Hernia repair (41592165).. Colorectal neoplasm risk assessment High risk UC. [...] Daily, # 10 cap(s), Refills(s) 0, Pharmacy: [facility]/pharmacy #6177, 168, cm, 10/23/23 13:41:00 EST, Height/Length Dosing, 75.1, kg, 10/23/23 13:41:00 EST, Weight Dosing Humira Pen Crohns/Ulcer Colitis/Hidradenitis Suppurativa Starterr Pack 80 mg/0.8 mL subcutaneous ki...: See Instructions, Inject 160 mg on day one, Inject 80 mg on day 15, # 1 kit(s), Refills(s) 0, Pharmacy: [facility]/pharmacy #6177, 167, cm, 09/04/20 8:15:00 EDT, Height/Length Dosing, 75.8, kg, 09/04/20 8:15:00 EDT, Weight Dosing Zofran ODT 4 mg Tab-Dis: 4 mg = 1 tab(s), Oral, q8hr, PRN Nausea/Vomiting, # 30 tab(s), Refills(s) 0, Pharmacy: [facility]/pharmacy #6177, 168, cm, 10/23/23 13:41:00 EST, Height/Length Dosing, 75.1, kg, 10/23/23 13:41:00 EST, Weight Dosing mesalamine 4 g/60 mL rectal enema: = 1 EA, Rectal, Once a day (at bedtime), # 30 EA, Refills(s) 3, [facility], 168, cm, 03/23/23 8:23:00 EDT, Height/Length Dosing, 81.1, kg, 03/23/23 8:23:00 EDT, Weight Dosing mesalamine 4 g/60 mL rectal enema: = 1 EA, Rectal, Once a day (at bedtime), # 30 EA, Refills(s) 6, [facility], 168, cm, 10/16/22 13:49:00 EST, Height/Length Dosing, 80.6, kg, 10/16/22 13:49:00 EST, Weight Dosing omeprazole 40 mg Cap-DR: 40 mg = 1 cap(s), Oral, Daily, # 30 cap(s), Refills(s) 11, [facility], 167, cm, 09/04/20 8:15:00 EDT, Height/Length Dosing, 75.8, kg, 09/04/20 8:15:00 EDT, Weight Dosing sulfasalazine 500 mg oral enteric coated tablet: 1,000 mg = 2 tab(s), Oral, QID, X 30 day(s), # 240 tab(s), Refills(s) 11, [id number], 168, cm, 04/01/23 8:58:00 EDT, Height/Length [...] the col (more content not included)... Normal [facility] Comment on above: Result Comment: Elec tronically Signed By: Luis Antonio García MD\.br\Date and Time Signed: 02/26/24 10:37 EDT Inpatient Patient Summaryon 02-26-2024 Inpatient Patient Summary (Inserted Imag e. Unable to display) [place] [id number] [facility] Clinical Discharge Instructions PERSON INFORMATION Name: JAM TOSCANO PHYSICIANS Admitting Physician: Luis Antonio García MD Attending Physician: Luis Antonio García MD PCP: Ziyad ROBLERO, Jose L Discharge Diagnosis: Chronic ulcerative colitis Comment: PATIENT [...] every 8 weeks. Refills: 6. Comment: Normal [facility] Main OR PACU I Recordon 02-14 Main OR PACU I Record PACU Phase I Docum ent Type FT Summary Primary Physician: Luis Antonio García MD Finalized Date/Time: 02/26/24 11:54:56 Pt. Name: JAM TOSCANO/Sex: 1965 Male Med Rec #: [id number] Physician: Luis Antonio García MD Financial #: [id number] Pt. Type: O Room/Bed: / Admit/Disch: 02/26/24 [...] Signed By: Lesli May RN 02/26/24 11:54 Normal [facility] Main OR Preoperative Recordo n 02-26-2024 Main OR Preoperative Record Holding Area Document Type FT Summary Primary Physician: Luis Antonio García MD Finalized Date/Time: 02/26/24 08:41:02 Pt. Name: JAM TOSCANO/Sex: 1965 Male Med Rec #: [id number] Physician: Luis Antonio García MD Financial #: [id number] Pt. Type: O Room/Bed: / Admit/Disch: 02/26/24 [...] By: Lauren Rosado RN 02/26/24 08:41 Normal [facility] Monitor Recordon 02-26-2024 Monitor Record [id number] Normal [facility] Monitor Record [id number] Normal [facility] Outpatient Surgery Discharge Instructionon 02-26-2024 Outpatient Surgery Discharge Instruction [place] [id number] Patient Discharge Instructions PERSON INFORMATION Name: JAM [...] Clinican/Nurse Signature Date Follow up: Pharmacy Information: [facility] You may receive a survey from Candida Orozco asking you to rate your care experience. Your feedback is important and will help us understand what we do well and how we can improve the quality of care we provide to you, your loved ones and our community. It?s an honor to serve you. Thank you for choosing [facility] HERE ARE THE MEDICATION CHANGES THAT [...] 6. PATIENT EDUCATION INFORMATION Instructions: Medication Leaflets: [facility] Patient Education - Texton 0 02-26-2024 Patient [...] unsweetened, w/added ascorbic acid 1 cup 0.5 [place] 1 cup 0.7 Vegetables Cooked Green beans 1 cup 4.0 Carrots 1/2 cup sliced 2.3 Peas 1 cup 8.8 Potato (baked, with skin) 1 medium potato 3.8 Raw [place] (with peel) 1 cucumber 1.5 Lettuce 1 [...] 8.7 Peanuts 1/2 cup 7.9 [facility]. SEEK IMMEDIATE MEDICAL CARE IF: You [...] http://www.nal.usda.gov/f clark/foodcomp/search/ Created using data from the USDA National Nutrient Database for Standard Reference. Available at http://www.nal.usda.gov/f clark/foodcomp/search/. Information adapted from: ExitCare? Patient Information ?2009 RF Code. Exmovere 2012 http://www.Sparktrend/c ontents/diverticular-dise qap-xnckch-hcy-basics Colonoscopy Care After Surgery Please read the [...] and progress (more content not included)... Normal [facility] Esau 02-11-2024 CANDIE Telephone (ANGEL) ----- JAM TOSCANO ([id number]) 1965 M Date Time Provider Department 02/11/24 NIDIA WESTON During your visit today, we recorded the following information about you: Nidia Weston, [employer].AUTOMOTIVE PARTS CLERK 02/11/2024 2:48 PM Signed Please call patient [...] Abs Lymph 1.00 - 4.00 k/uL 1.84 Monona% % 7.3 Abs Monona <0.87 k/uL 0.59 Eosin% % 0.1 Abs [...] 38 - 113 U/L 211 (H) Kelli Madrid MA 02/12/2024 8:40 AM Signed Left message for [...] Date Reviewed: 01/12/2024 Reviewed by: Nidia Weston, ADEOLA.AUTOMOTIVE PARTS CLERK - Fully Assessed Primary Visit Diagnosis:Elevated alkaline phosphatase level [R74.8] Order(s):CONSULT TO HEPATOLOGY [[id number]] Order #: [id number]: 1 FUTURE Prescriptions as of 02/16/2024 - [...] Status:Closed by ESTEPHANIA DEVINE on 02/16/24 Normal [facility] ALKALINE PHOSPHATASE ISOENZY MES (P)on 01-12-2024 ALK PHOS BONE % 16.2 % Normal 10.7-68.3 [facility] Comment on above: Order Comment: Speci men Type: BLOOD SPECIMENOrdering Facility: [facility] Address: [address] [place] [address] Performed By: #### A LKISOP ####[facility] LABIA [id number] [place] [address] [place] ALK PHOS LIVER % 83.8 % Normal 26.0-86.2 [facility] Comment on above: Order Comment: Latoyai men Type: BLOOD SPECIMENOrdering Facility: [facility] Address: [address] [place] [address] Performed By: #### A LKISOP ####[facility] LABCLIA [id number] [place] [address] [place] BONE FRACTION 34.2 U/L Normal 12.9-52.6 [facility] Comment on above: Order Comment: Latoyai men Type: BLOOD SPECIMENOrdering Facility: [facility] Address: [address] [place] [address] Performed By: #### A LKISOP ####[facility] LABIA [id number] [place] [address] [place] INTESTINE FRACTION 0.0 U/L Normal 0.0-16.3 [facility] Comment on above: Order Comment: Speci men Type: BLOOD SPECIMENOrdering Facility: [facility] Address: [address] [place] [address] Performed By: #### A LKISOP ####[facility] LABCLIA [id number] [place] [address] [place] LIVER FRACTION 176.8 U/L High 16.0-69.3 [facility] Comment on above: Order Comment: Speci men Type: BLOOD SPECIMENOrdering Facility: [facility] Address: [address] [place] [address] Performed By: #### A LKISOP ####[facility] LABIA [id number] [place] [address] [place] Neutrophils/100 WBC (Bld) 0.0 % Normal 0.0-24.2 [facility] Comment on above: Order Comment: Speci men Type: BLOOD SPECIMENOrdering Facility: [facility] Address: [address] [place] [address] Performed By: #### A LKISOP ####[facility] LABIA [id number] [place] [address] [place] ALP SerPl-cCncon 01-12-2024 ALP [Catalytic activity/Vol] 211 U/L High 38-113 [facility] Comment on above: Order Comment: Speci men Type: BLOOD SPECIMENOrdering Facility: [facility] Address: [address] [place] [address] Performed By: #### 6 768-6, 1988-03 ####[facility] LABIA [id number] [place] [address] [place] CBC W Auto Differential pane l (Bld)on 01-12-2024 Basophils (Bld) [#/Vol] 0.04 10*3/uL Normal <0.11 [facility] Comment on above: Order Comment: Speci men Type: BLOOD SPECIMENOrdering Facility: [facility] Address: [address] [place] [address] Performed By: #### 4 537-7, 09164-5 ####[facility] LABCLIA [id number] [place] [address] [place] Basophils/100 WBC (Bld) 0.5 % Normal [facility] Comment on above: Order Comment: Speci men Type: BLOOD SPECIMENOrdering Facility: [facility] Address: [address] [place] [address] Performed By: #### 4 537-7, 63848-9 ####[facility] LABCLIA [id number] [place] [address] [place] Differential cell count method Nom (Bld) Auto Normal [facility] Comment on above: Order Comment: Speci men Type: BLOOD SPECIMENOrdering Facility: [facility] Address: [address] [place] [address] Performed By: #### 4 537-7, 12761-3 ####[facility] LABCLIA [id number] [place] [address] [place] Eosinophils (Bld) [#/Vol] 10*3/uL Normal <0.46 [facility] Comment on above: Order Comment: Speci men Type: BLOOD SPECIMENOrdering Facility: [facility] Address: [address] [place] [address] Performed By: #### 4 537-7, 52388-8 ####[facility] LABCLIA [id number] [place] [address] [place] Eosinophils/100 WBC (Bld) 0.1 % Normal [facility] Comment on above: Order Comment: Speci men Type: BLOOD SPECIMENOrdering Facility: [facility] Address: [address] [place] [address] Performed By: #### 4 537-7, 01671-8 ####[facility] LABCLIA [id number] [place] [address] [place] Erythrocyte distribution width (RBC) [Ratio] 15.0 % Normal 11.5-15.0 [facility] Comment on above: Order Comment: Speci men Type: BLOOD SPECIMENOrdering Facility: [facility] Address: [address] [place] [address] Performed By: #### 4 537-7, 39865-2 ####[facility] LABCLIA [id number] [place] [address] [place] Hematocrit (Bld) [Volume fraction] 43.6 % Normal 39.0-51.0 [facility] Comment on above: Order Comment: Speci men Type: BLOOD SPECIMENOrdering Facility: [facility] Address: [address] [place] [address] Performed By: #### 4 537-7, 23869-6 ####[facility] LABIA [id number] [place] [address] [place] Hemoglobin (Bld) [Mass/Vol] 13.9 g/dL Normal 13.0-17.0 [facility] Comment on above: Order Comment: Speci men Type: BLOOD SPECIMENOrdering Facility: [facility] Address: [address] [place] [address] Performed By: #### 4 537-7, 50208-5 ####[facility] LABIA [id number] [place] [address] [place] Immature granulocytes (Bld) [#/Vol] 10*3/uL Normal <0.10 [facility] Comment on above: Order Comment: Speci men Type: BLOOD SPECIMENOrdering Facility: [facility] Address: [address] [place] [address] Performed By: #### 4 537-7, 97999-7 ####[facility] LABCLIA [id number] [place] [address] [place] Immature granulocytes/100 WBC (Bld) 0.2 % Normal [facility] Comment on above: Order Comment: Speci men Type: BLOOD SPECIMENOrdering Facility: [facility] Address: [address] [place] [address] Performed By: #### 4 537-7, 82219-6 ####[facility] LABCLIA [id number] [place] [address] [place] Lymphocytes (Bld) [#/Vol] 1.84 10*3/uL Normal 1.00-4.0 0 [facility] Comment on above: Order Comment: Speci men Type: BLOOD SPECIMENOrdering Facility: [facility] Address: [address] [place] [address] Performed By: #### 4 537-7, 24288-6 ####[facility] LABCLIA [id number] [place] [address] [place] Lymphocytes/100 WBC (Bld) 22.9 % Normal [facility] Comment on above: Order Comment: Speci men Type: BLOOD SPECIMENOrdering Facility: [facility] Address: [address] [place] [address] Performed By: #### 4 537-7, 48931-4 ####[facility] LABCLIA [id number] [place] [address] [place] MCH (RBC) [Entitic mass] 29.5 pg Normal 26.0-34.0 [facility] Comment on above: Order Comment: Speci men Type: BLOOD SPECIMENOrdering Facility: [facility] Address: [address] [place] [address] Performed By: #### 4 537-7, 54634-1 ####[facility] LABCLIA [id number] [place] [address] [place] MCHC (RBC) [Mass/Vol] 31.9 g/dL Normal 30.5-36.0 [facility] Comment on above: Order Comment: Speci men Type: BLOOD SPECIMENOrdering Facility: [facility] Address: [address] [place] [address] Performed By: #### 4 537-7, 71333-6 ####[facility] LABCLIA [id number] [place] [address] [place] MCV (RBC) [Entitic vol] 92.6 fL Normal 80.0-100.0 [facility] Comment on above: Order Comment: Speci men Type: BLOOD SPECIMENOrdering Facility: [facility] Address: [address] [place] [address] Performed By: #### 4 537-7, 12236-0 ####[facility] LABCLIA [id number] [place] [address] [place] Monocytes (Bld) [#/Vol] 0.59 10*3/uL Normal <0.87 [facility] Comment on above: Order Comment: Speci men Type: BLOOD SPECIMENOrdering Facility: [facility] Address: [address] [place] [address] Performed By: #### 4 537-7, 94655-4 ####[facility] LABCLIA [id number] [place] [address] [place] Monocytes/100 WBC (Bld) 7.3 % Normal [facility] Comment on above: Order Comment: Speci men Type: BLOOD SPECIMENOrdering Facility: [facility] Address: [address] [place] [address] Performed By: #### 4 537-7, 46216-7 ####[facility] LABCLIA [id number] [place] [address] [place] Neutrophils (Bld) [#/Vol] 5.55 10*3/uL Normal 1.45-7.5 0 [facility] Comment on above: Order Comment: Speci men Type: BLOOD SPECIMENOrdering Facility: [facility] Address: [address] [place] [address] Performed By: #### 4 537-7, 47632-8 ####[facility] LABCLIA [id number] [place] [address] [place] Neutrophils/100 WBC (Bld) 69.0 % Normal [facility] Comment on above: Order Comment: Speci men Type: BLOOD SPECIMENOrdering Facility: [facility] Address: [address] [place] [address] Performed By: #### 4 537-7, 09191-3 ####[facility] LABIA [id number] [place] [address] [place] Nucleated RBC (Bld) [#/Vol] 10*3/uL Normal <0.01 [facility] Comment on above: Order Comment: Speci men Type: BLOOD SPECIMENOrdering Facility: [facility] Address: [address] [place] [address] Performed By: #### 4 537-7, 73137-6 ####[facility] LABIA [id number] [place] [address] [place] Nucleated RBC/100 WBC (Bld) [Ratio] 0.0 /100 WBC Normal [facility] Comment on above: Order Comment: Speci men Type: BLOOD SPECIMENOrdering Facility: [facility] Address: [address] [place] [address] Performed By: #### 4 537-7, 31615-9 ####[facility] LABIA [id number] [place] [address] [place] Platelet mean volume (Bld) [Entitic vol] 9.4 fL Normal 9.0-12.7 [facility] Comment on above: Order Comment: Speci men Type: BLOOD SPECIMENOrdering Facility: [facility] Address: [address] [place] [address] Performed By: #### 4 537-7, 41910-1 ####[facility] LABIA [id number] [place] [id number] [place] Platelets (Bld) [#/Vol] 339 10*3/uL Normal 150-400 [facility] Comment on above: Order Comment: Speci men Type: BLOOD SPECIMENOrdering Facility: [facility] Address: [address] [place] [address] Performed By: #### 4 537-7, 08450-5 ####[facility] LABIA [id number] [place] [address] [place] RBC (Bld) [#/Vol] 4.71 10*6/uL Normal 4.20-6.00 [facility] Comment on above: Order Comment: Speci men Type: BLOOD SPECIMENOrdering Facility: [facility] Address: [address] [place] [address] Performed By: #### 4 537-7, 58164-4 ####[facility] [id number] [place] [address] [place] WBC (Bld) [#/Vol] 8.05 10*3/uL Normal 3.70-11.00 [facility] Comment on above: Order Comment: Speci men Type: BLOOD SPECIMENOrdering Facility: [facility] Address: [address] [place] [address] Performed By: #### 4 537-7, 14896-2 ####[facility] LABIA [id number] [place] [id number] [place] CNOVon 01-12-2024 CNOV Office Visit (ANGEL ) ----- JAM TOSCANO ([id number]) 1965 M Date Time Provider Department 01/12/24 10:30 AM NIDIA WESTON During your visit today, we recorded the following information about you: Pulse Blood pressure Weight 95/minute 132/88 74.7 kg Nidia Weston APRN.AUTOMOTIVE PARTS CLERK 02/14/2024 11:31 PM Signed Follow up Jam Toscano is a very nice 58 year old male seen for Rheumatoid Arthritis and Osteoporosis Subjective: Patient reports: Low iron- following with Dr. Lomeli Has not been taking iron consistently Following with GI - Dr. Salmon in [place] Has scope scheduled February 25 Last visit [...] work or invasive procedures No dental concerns [facility] [phone] No serious infections or fevers Stopped celebrex [...] (primary e (more content not included)... Normal [facility] CRP SerPl-ncon 01-12-2024 CRP [Mass/Vol] 0.4 mg/dL Normal <0.9 [facility] Comment on above: Order Comment: Quinn felder Type: BLOOD SPECIMENOrdering Facility: [facility] Address: [address] [place] [address] Performed By: #### 6 768-6, 1988-03 ####[facility] LABCLIA [id number] [place] [address] [place] ESR Westergren method (Bld) [Velocity]on 01-12-2024 ESR (Bld) [Velocity] 34 mm/h High 0-[address] [facility] Comment on above: Order Comment: Quinn felder Type: BLOOD SPECIMENOrdering Facility: [facility] Address: [address] [place] [address] Performed By: #### 4 537-7, 07349-7 ####[facility] LABCLIA [id number] [place] [address] [place] Consent for Procedure/Surger yon 12-14-2023 Consent for Procedure/Surgery [id number] Normal [facility] Ambulatory Visit Summaryon 0 12-11-2023 Ambulatory Visit Summary JAM TOSCANO :1965 Visit Date:12/11/2023 Ambulatory Visit Instructions Your Diagnosis Dowell ulcerative colitis Adenomatous colon polyp Your Care [...] (Entyvio 300 mg intravenous injection) See instructions Dowell ulcerative colitis 300 mg/ kg at week [...] Prostate calculus Rectal bleed Ulcerative colitis, universal Dowell ulcerative colitis Urethral stone Historical - Any problem that you are no longer receiving treatment for. E (more content not included)... Normal [facility] Gastroenterology Office/Clin ic Noteon 12-11-2023 Gastroenterology [...] BIOPSY: ? COLONIC MUCOSA WITHIN NORMAL LIMITS. [facility] 10/23/23 for c/o abdominal pain d/c diagnosis of Kidney stones, CT and labs completed. [facility] 11/04/23 for c/o nausea and diarrah [...] 87.3 fL (11/27/23) Chloride: 105 mmol/L (11/27/23) Monona Absolute: 0.9 E9/L (11/27/23) CO2: 24 mmol/L (11/27/23) Monona Auto: 9.3 % (11/27/23) Creatinine: 0.7 mg/dL [...] WT: 165.88 lb BMI: 26.71 Assessment/Plan 1. Dowell ulcerative colitis (K51.00: Ulcerative (chronic) pancolitis without [...] 2018. W (more content not included)... Normal [facility] Comment on above: Result Comment: Elec tronically Signed By: Ricky ROBLERO, Luis Antonio Tiwari\.br\Date and Time Signed: 12/11/23 10:32 EST Esau 12-03-2023 CNPN Telephone (ANGEL) ----- RIMMAJAM ([id number]) 1965 M Date Time Provider Department 12/03/23 NIDIA WESTON During your visit today, we recorded the following information about you: Nidia Weston, [employer].AUTOMOTIVE PARTS CLERK 12/03/2023 12:08 AM Signed Please call patient [...] Abs Lymph 1.00 - 4.00 k/uL 2.11 Monona% % 7.6 Abs Monona <0.87 k/uL 0.82 Eosin% % 0.1 Abs [...] in Health Maintenance. Patient read dates from [place] vaccination card. Stated received twinix vaccine. Started [...] PCP. Results faxed to PCP. Nidia Weston APRN.CNP 12/03/2023 11:05 PM Signed Thank you for update Allergies As of Date: 12/03/2023 (No Known Allergies) Date Reviewed: 12/01/2023 Reviewed by: Nidia Weston APRN.AUTOMOTIVE PARTS CLERK - Fully Assessed Reason for Visit: Results [95] Primary Visit Diagnosis:Rheumatoid arthritis 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) [M05.79] Order(s):CBC + DIFF [SQCBCDIF] Order #: [id number] FUTURE C-REACTIVE PROTEIN (CRP) [SQCRP] Order #: [id number] FUTURE SED RATE WESTERGREN [SQWSR] Order #: [id number] FUTURE ALK PHOS ISOENZYM BL [SQALKISO] Order #: [id number] FUTURE Prescriptions as of 12/03/2023 - celecoxib [...] lisinopril (ZESTRIL, (more content not included)... Normal [facility] 25(OH)D3 SerPl-mCncon 2023 25-hydroxyvitamin D3 [Mass/Vol] 63.0 ng/mL Normal 31.0-80.0 [facility] Comment on above: Order Comment: Quinn felder Type: BLOOD SPECIMENOrdering Facility: [facility] Address: [address] [place] [address] Result Comment: Clas sification of 25 OH Vitamin D status: Deficiency/Insufficiency: < or = 30 ng/ml. Sufficiency/Optimal Levels: 31-80 ng/mL Toxicity: > 100 ng/mL. Test performed by chemiluminescent immunoassay. Performed By: #### 1 989-3 ####[facility] [id number] [address] STATES OF [facility] BLOOD TB SCREENon 12-01-2023 M. tuberculosis tuberculin stim IFN-g Ql (Bld) Negative Normal [facility] Comment on above: Order Comment: Quinn [facility] Type: BLOOD SPECIMENOrdering Facility: [facility] Address: [address] [place] [address] Performed By: #### I NFTBP ####[facility] [id number] [place] [address] [place] MITOGEN MINUS NIL 3.58 IU/mL Normal >=0.50 [facility] Comment on above: Order Comment: Quinn [facility] Type: BLOOD SPECIMENOrdering Facility: [facility] Address: [address] [place] [address] Performed By: #### I NFTBP ####[facility] [id number] [address] STATES OF [facility] TB GAMMA INTERPRETATION Infection with M . tuberculosis complex is unlikely. If latent tuberculosis infection is highly suspected, a negative result does not rule out the infection. Specimens from immunocompromised patients and those <5 years of age may show false negative results. In case of a contact investigation, please repeat 8-12 weeks after a known exposure. Normal [facility] Comment on above: Order Comment: Speci men Type: BLOOD SPECIMENOrdering Facility: [facility] Address: [address] [place] [address] Performed By: #### I NFTBP ####[facility] LABCLIA [id number] [place] [address] [place] TB NIL 0.04 IU/mL Normal <=8.00 [facility] Comment on above: Order Comment: Speci men Type: BLOOD SPECIMENOrdering Facility: [facility] Address: [address] [place] [address] Performed By: #### I NFTBP ####[facility] LABCLIA [id number] [place] [address] [place] TB1 AG MINUS NIL 0.00 IU/mL Normal <0.35 [facility] Comment on above: Order Comment: Speci men Type: BLOOD SPECIMENOrdering Facility: [facility] Address: [address] [place] [address] Performed By: #### I NFTBP ####[facility] LABCLIA [id number] [place] [address] [place] TB2 AG MINUS NIL 0.02 IU/mL Normal <0.35 [facility] Comment on above: Order Comment: Speci men Type: BLOOD SPECIMENOrdering Facility: [facility] Address: [address] [place] [address] Performed By: #### I NFTBP ####[facility] LABIA [id number] [place] [address] [place] CBC W Auto Differential pane l (Bld)on 12-01-2023 Basophils (Bld) [#/Vol] 0.05 10*3/uL Normal <0.11 [facility] Comment on above: Order Comment: Speci men Type: BLOOD SPECIMENOrdering Facility: [facility] Address: [address] [place], [place] [address] Performed By: #### 5 7021-8, 4536-7 ####[facility] LABCLIA [id number] [place] [address] [place] Basophils/100 WBC (Bld) 0.5 % Normal C [facility] Comment on above: Order Comment: Speci men Type: BLOOD SPECIMENOrdering Facility: [facility] Address: [address] [place] [address] Performed By: #### 5 7021-8, 4536-7 ####[facility] LABCLIA [id number] [place] [address] [place] Differential cell count method Nom (Bld) Auto Normal [facility] Comment on above: Order Comment: Speci men Type: BLOOD SPECIMENOrdering Facility: [facility] Address: [address] [place] [address] Performed By: #### 5 7021-8, 7 ####[facility] LABCLIA [id number] [place] [address] [place] Eosinophils (Bld) [#/Vol] 10*3/uL Normal <0.46 [facility] Comment on above: Order Comment: Speci men Type: BLOOD SPECIMENOrdering Facility: [facility] Address: [address] [place] [address] Performed By: #### 5 7021-8, 7 ####[facility] LABCLIA [id number] [place] [address] [place] Eosinophils/100 WBC (Bld) 0.1 % Normal [facility] Comment on above: Order Comment: Speci men Type: BLOOD SPECIMENOrdering Facility: [facility] Address: [address] [place] [address] Performed By: #### 5 7021-8, 4536-7 ####[facility] LABCLIA [id number] [place] [address] [place] Erythrocyte distribution width (RBC) [Ratio] 13.1 % Normal 11.5-15.0 [facility] Comment on above: Order Comment: Speci men Type: BLOOD SPECIMENOrdering Facility: [facility] Address: [address] [place] [address] Performed By: #### 5 7021-8, 7 ####[facility] LABCLIA [id number] [place] [address] [place] Hematocrit (Bld) [Volume fraction] 36.8 % Low 39.0-51.0 [facility] Comment on above: Order Comment: Speci men Type: BLOOD SPECIMENOrdering Facility: [facility] Address: [address] [place] [address] Performed By: #### 5 7021-8, 7 ####[facility] LABCLIA [id number] [place] [address] [place] Hemoglobin (Bld) [Mass/Vol] 11.6 g/dL Low 13.0-17.0 [facility] Comment on above: Order Comment: Speci men Type: BLOOD SPECIMENOrdering Facility: [facility] Address: [address] [place] [address] Performed By: #### 5 7021-8, 7 ####[facility] LABCLIA [id number] [place] [address] [place] Immature granulocytes (Bld) [#/Vol] 10*3/uL Normal <0.10 [facility] Comment on above: Order Comment: Speci men Type: BLOOD SPECIMENOrdering Facility: [facility] Address: [address] [place] [address] Performed By: #### 5 7021-8, 7 ####[facility] LABCLIA [id number] [place] [address] [place] Immature granulocytes/100 WBC (Bld) 0.2 % Normal [facility] Comment on above: Order Comment: Speci men Type: BLOOD SPECIMENOrdering Facility: [facility] Address: [address] [place] [address] Performed By: #### 5 7021-8, 4537-7 ####[facility] LABCLIA [id number] [place] [address] [place] Lymphocytes (Bld) [#/Vol] 2.11 10*3/uL Normal 1.00-4.0 0 [facility] Comment on above: Order Comment: Speci men Type: BLOOD SPECIMENOrdering Facility: [facility] Address: [address] [place] [address] Performed By: #### 5 7021-8, 4536-7 ####[facility] LABCLIA [id number] [place] [address] [place] Lymphocytes/100 WBC (Bld) 19.5 % Normal [facility] Comment on above: Order Comment: Speci men Type: BLOOD SPECIMENOrdering Facility: [facility] Address: [address] [place] [address] Performed By: #### 5 7021-8, 4536-7 ####[facility] LABCLIA [id number] [place] [address] [place] MCH (RBC) [Entitic mass] 29.1 pg Normal 26.0-34.0 [facility] Comment on above: Order Comment: Speci men Type: BLOOD SPECIMENOrdering Facility: [facility] Address: [address] [place] [address] Performed By: #### 5 7021-8, 7-7 ####[facility] LABCLIA [id number] [place] [address] [place] MCHC (RBC) [Mass/Vol] 31.5 g/dL Normal 30.5-36.0 [facility] Comment on above: Order Comment: Speci men Type: BLOOD SPECIMENOrdering Facility: [facility] Address: [address] [place] [address] Performed By: #### 5 7021-8, 7-7 ####[facility] LABCLIA [id number] [place] [address] [place] MCV (RBC) [Entitic vol] 92.2 fL Normal 80.0-100.0 C [facility] Comment on above: Order Comment: Speci men Type: BLOOD SPECIMENOrdering Facility: [facility] Address: [address] [place] [address] Performed By: #### 5 7021-8, 4536-7 ####[facility] LABCLIA [id number] [place] [address] [place] Monocytes (Bld) [#/Vol] 0.82 10*3/uL Normal <0.87 [facility] Comment on above: Order Comment: Speci men Type: BLOOD SPECIMENOrdering Facility: [facility] Address: [address] [place] [address] Performed By: #### 5 7021-8, 4536-7 ####[facility] LABCLIA [id number] [place] [address] [place] Monocytes/100 WBC (Bld) 7.6 % Normal C [facility] Comment on above: Order Comment: Speci men Type: BLOOD SPECIMENOrdering Facility: [facility] Address: [address] [place] [address] Performed By: #### 5 7021-8, 4536-7 ####[facility] LABCLIA [id number] [place] [address] [place] Neutrophils (Bld) [#/Vol] 7.83 10*3/uL High 1.45-7.5 0 [facility] Comment on above: Order Comment: Speci men Type: BLOOD SPECIMENOrdering Facility: [facility] Address: [address] [place] [address] Performed By: #### 5 7021-8, 7-7 ####[facility] LABCLIA [id number] [place] [address] [place] Neutrophils/100 WBC (Bld) 72.1 % Normal [facility] Comment on above: Order Comment: Speci men Type: BLOOD SPECIMENOrdering Facility: [facility] Address: [address] [place] [address] Performed By: #### 5 7021-8, 4537-7 ####[facility] LABCLIA [id number] [place] [address] [place] Nucleated RBC (Bld) [#/Vol] 10*3/uL Normal <0.01 [facility] Comment on above: Order Comment: Speci men Type: BLOOD SPECIMENOrdering Facility: [facility] Address: [address] [place] [address] Performed By: #### 5 7021-8, 4537-7 ####[facility] LABCLIA [id number] [place] [address] [place] Nucleated RBC/100 WBC (Bld) [Ratio] 0.0 /100 WBC Normal [facility] Comment on above: Order Comment: Speci men Type: BLOOD SPECIMENOrdering Facility: [facility] Address: [address] [place] [address] Performed By: #### 5 7021-8, 4537-7 ####[facility] LABCLIA [id number] [place] [address] [place] Platelet mean volume (Bld) [Entitic vol] 9.2 fL Normal 9.0-12.7 [facility] Comment on above: Order Comment: Speci men Type: BLOOD SPECIMENOrdering Facility: [facility] Address: [address] [place] [address] Performed By: #### 5 7021-8, 4537-7 ####[facility] LABCLIA [id number] [place] [address] [place] Platelets (Bld) [#/Vol] 497 10*3/uL High 150-400 [facility] Comment on above: Order Comment: Speci men Type: BLOOD SPECIMENOrdering Facility: [facility] Address: [place] [address] Performed By: #### 5 7021-8, 4537-7 ####[facility] LABCLIA [id number] [place] [address] [place] RBC (Bld) [#/Vol] 3.99 10*6/uL Low 4.20-6.00 [facility] Comment on above: Order Comment: Speci men Type: BLOOD SPECIMENOrdering Facility: [facility] Address: [place] [address] Performed By: #### 5 7021-8, 4537-7 ####[facility] LABCLIA [id number] [place] [address] [place] WBC (Bld) [#/Vol] 10.84 10*3/uL Normal 3.70-11.00 [facility] Comment on above: Order Comment: Speci men Type: BLOOD SPECIMENOrdering Facility: [facility] Address: [place] [address] Performed By: #### 5 7021-8, 4537-7 ####[facility] LABCLIA [id number] [place] [address] [place] CNOVon 12-01-2023 CNOV Office Visit (ANGEL ) ----- JAM TOSCAON ([id number]) 1965 Griselda Date Time Provider Department 12/01/23 3:30 PM NIDIA WESTON During your visit today, we recorded the following information about you: Pulse Blood pressure Weight 92/minute 122/76 72.8 kg Nidia Weston, A[employer]A.[employer]ERK 01/11/2024 11:15 PM Signed Follow up Telephone [...] rom shoulders. Left elbow. No dental concerns [facility] dental [phone] GI - colitis- has been calm SSZ [...] Jagdish grace (more content not included)... Normal [facility] CRP SerPl-mCncon 12-01-2023 CRP [Mass/Vol] 3.9 mg/dL High <0.9 [facility] Comment on above: Order Comment: Speci men Type: BLOOD SPECIMENOrdering Facility: [facility] Address: [address] [place] [address] Performed By: #### 2 4323-06, 1988-03 ####[facility] LABCLIA [id number] [place] [address] [place] Comprehensive metabolic 2000 panelon 12-01-2023 Albumin [Mass/Vol] 3.9 g/dL Normal 3.9-4.9 [facility] Comment on above: Order Comment: Speci men Type: BLOOD SPECIMENOrdering Facility: [facility] Address: [address] [place] [address] Performed By: #### 2 4323-06, 1988-03 ####[facility] LABCLIA [id number] [place] [address] [place] ALP [Catalytic activity/Vol] 171 U/L High 38-113 [facility] Comment on above: Order Comment: Speci men Type: BLOOD SPECIMENOrdering Facility: [facility] Address: [address] [place] [id number] Performed By: #### 2 4323-06, 1988-03 ####[facility] LABCLIA [id number] [address] [address] [place] ALT [Catalytic activity/Vol] 22 U/L Normal 10-54 [facility] Comment on above: Order Comment: Speci men Type: BLOOD SPECIMENOrdering Facility: [facility] Address: [address] [place] [address] Performed By: #### 2 4323-06, 1988-03 ####[facility] LABCLIA [id number] [place] [id number] [place] Anion gap [Moles/Vol] 12 mmol/L Normal 9-18 [facility] Comment on above: Order Comment: Speci men Type: BLOOD SPECIMENOrdering Facility: [facility] Address: [address] [place] [address] Performed By: #### 2 43201-21, 1988-03 ####[facility] LABCLIA [id number] [place] [address] [place] AST [Catalytic activity/Vol] 31 U/L Normal 14-40 [facility] Comment on above: Order Comment: Speci men Type: BLOOD SPECIMENOrdering Facility: [facility] Address: [address] [place] [address] Performed By: #### 2 43201-21, 1988-03 ####[facility] LABCLIA [id number] [place] [address] [place] Bilirubin [Mass/Vol] 0.3 mg/dL Normal 0.2-1.3 [facility] Comment on above: Order Comment: Speci men Type: BLOOD SPECIMENOrdering Facility: [facility] Address: [address] [place] [address] Performed By: #### 2 43201-21, 1988-03 ####[facility] LABCLIA [id number] [place] [address] [place] Calcium [Mass/Vol] 10.2 mg/dL Normal 8.5-10.2 [facility] Comment on above: Order Comment: Speci men Type: BLOOD SPECIMENOrdering Facility: [facility] Address: [address] [place] [address] Performed By: #### 2 43201-21, 1988-03 ####[facility] LABCLIA [id number] [place] [id number] [place] Chloride [Moles/Vol] 106 mmol/L High 97-105 [facility] Comment on above: Order Comment: Speci men Type: BLOOD SPECIMENOrdering Facility: [facility] Address: [address] [place] [address] Performed By: #### 2 43201-21, 1988-03 ####[facility] LABIA [id number] [address] [address] [place] CO2 [Moles/Vol] 25 mmol/L Normal 22-30 [facility] Comment on above: Order Comment: Speci men Type: BLOOD SPECIMENOrdering Facility: [facility] Address: [address] [place] [address] Performed By: #### 2 4323-06, 1988-03 ####[facility] LABIA [id number] [place] [address] [place] Creatinine [Mass/Vol] 0.92 mg/dL Normal 0.73-1.22 [facility] Comment on above: Order Comment: Speci men Type: BLOOD SPECIMENOrdering Facility: [facility] Address: [address] [place] [address] Performed By: #### 2 4323-06, 1988-03 ####[facility] LABIA [id number] [place] [address] [place] Creatinine and Glomerular filtration rate.predicted panel (S/P/Bld) 96 mL/min/1.73m??? Normal >=60 [facility] Comment on above: Order Comment: Speci men Type: BLOOD SPECIMENOrdering Facility: [facility] Address: [address] [place] [address] Result Comment: Fauzia mated Glomerular Filtration Rate [...] GFR. Performed By: #### 2 43201-21, 1988-03 ####[facility] LABCLIA [id number] [address] [address] [place] Glucose [Mass/Vol] 101 mg/dL High 74-99 [facility] Comment on above: Order Comment: Speci men Type: BLOOD SPECIMENOrdering Facility: [facility] Address: [address] [place] [address] Result Comment: The [place] [employer] (ADA) provides guidance for cutoff [...] Standards of Medical Care in Diabetes 2016, [place] [employer]. Diabetes Care. 2016.39(Suppl 1). Performed By: #### 2 43201-21, 1988-03 ####[facility] LABCLIA [id number] [place] [id number] [place] Potassium [Moles/Vol] 4.1 mmol/L Normal 3.7-5.1 [facility] Comment on above: Order Comment: Speci men Type: BLOOD SPECIMENOrdering Facility: [facility] Address: [address] [place] [id number] Performed By: #### 2 4323-06, 1988-03 ####[facility] LABCLIA [id number] [address] [address] [place] Protein [Mass/Vol] 8.0 g/dL Normal 6.3-8.0 [facility] Comment on above: Order Comment: Speci men Type: BLOOD SPECIMENOrdering Facility: [facility] Address: [address] [place] [address] Performed By: #### 2 4323-06, 1988-03 ####[facility] LABCLIA [id number] [place] [address] [place] Sodium [Moles/Vol] 143 mmol/L Normal 136-144 [facility] Comment on above: Order Comment: Speci men Type: BLOOD SPECIMENOrdering Facility: [facility] Address: [address] [place] [address] Performed By: #### 2 4323-8, 1988-03 ####[facility] LABIA [id number] [place] [address] [place] Urea nitrogen [Mass/Vol] 19 mg/dL Normal 9-24 [facility] Comment on above: Order Comment: Speci men Type: BLOOD SPECIMENOrdering Facility: [facility] Address: [address] [place] [address] Performed By: #### 2 4323-8, 1988-03 ####[facility] LABIA [id number] [place] [address] [place] ESR Westergren method (Bld) [Velocity]on 12-01-2023 ESR (Bld) [Velocity] 114 mm/h High 0-[address] Comment on above: Order Comment: Latoyai men Type: BLOOD SPECIMENOrdering Facility: [facility] Address: [address] [place] [address] Performed By: #### 5 7021-8, 4537-7 ####[facility] LABIA [id number] [place] [address] [place] HBV core Ab Ser Qlon 024 HBV core Ab Ql (S) Negative Normal Negative [facility] Comment on above: Order Comment: Speci men Type: BLOOD SPECIMENOrdering Facility: [facility] Address: [address] [place] [address] Result Comment: No e vidence of current or past infection with Hepatitis B virus. Should recent infection be suspected, repeat testing may be considered 3-4 weeks after this draw. Performed By: #### 1 6933-4, 5-3, 33941-8 ####[facility] LABCLIA [id number] [place] [address] [place] HBV surface Ab Ql (S)on 11-16 HBV surface Ab Qn (S) <8.00 Normal [facility] Comment on above: Order Comment: Speci men Type: BLOOD SPECIMENOrdering Facility: [facility] Address: [address] [place] [address] Result Comment: <8 m IU/mL: No serological evidence of immunity to Hepatitis B Virus. >/= 8 to <12 mIU/mL: No serological evidence of immunity to Hepatitis B Virus. >/= 12 mIU/mL: Consistent with serological evidence of immunity to Hepatitis B Virus. Performed By: #### 1 6933-4, 3, ####[facility] LABIA [id number] [address] [place] HBV surface Ab Ser Qlon 11-16 HBV surface Ab Ql (S) Negative Normal [facility] Comment on above: Order Comment: Speci men Type: BLOOD SPECIMENOrdering Facility: [facility] Address: [address] [place] [address] Result Comment: No s erological evidence of immunity to Hepatitis B Virus. Performed By: #### 1 6933-4, 5194-3, 14224-6 ####[facility] LABCLIA [id number] [place] [address] [place] HBV surface Ag Ser Qlon 11-16 HBV surface Ag Ql (S) Negative Normal Negative [facility] Comment on above: Order Comment: Speci men Type: BLOOD SPECIMENOrdering Facility: [facility] Address: [address] [place] [address] Performed By: #### 1 6933-4, 5195-3, 03478-1 ####[facility] LABCLIA [id number] [address] [place] HCV Ab Ser Qlon 12-01-2023 HCV Ab Ql (S) Negative Normal Negative [facility] Comment on above: Order Comment: Speci men Type: BLOOD SPECIMENOrdering Facility: [facility] Address: [address] [place] [address] Result Comment: The result suggests no evidence of active infection with Hepatitis C virus. Should recent infection be suspected, repeat testing may be considered 4-6 weeks after this draw. Performed By: #### 1 6128-1 ####[facility] LABCLIA [id number] [facility] [id number] [id number] [facility] ED Note-Physicianon 11-28-19 24 ED Note-Physician Basic Information Time Seen: Juancarlos [...] for 3 day(s), 15 tab(s), Refill(s) 0, [facility]/pharmacy #[id number], 168, cm, 11/27/23 10:26:00 EST, Height/Length Dosing, 73.8, kg, 11/27/23 10:26:00 EST, Weight Dosing Orders: methocarbamol, 1,500 mg = 2 tab(s), Oral, TID, X 3 day(s), # 18 tab(s), Refills(s) 0, Pharmacy: [facility]/pharmacy #[id number], 168, cm, 11/27/23 10:26:00 EST, Height/Length [...] [place] In 3 days 11/30/2023 EST [address] [place] [address] [place] [address]- Business (1) Additional Instructions: Patient Education Rheumatoid Arthritis Attestation Patient seen and evaluated by the physician junior assistant manager. Attending physician was present in the emergency department and supervised care. This visit was performed by both the physician and an APC. I performed all aspects of the MDM as documented. This report was transcribed using voice recognition software. Every effort was made to ensure accuracy, however, inadvertently computerized district recruiter mistakes may be present. Appropriate healthcare PPE [...] Prostate calculus Rectal bleed Ulcerative colitis, universal Dowell ulcerative colitis Urethral stone Historical Extreme obesity Ulcerative colitis Procedure/Surgical History Colonoscopy (03/23/2023), Cystoscopy (02/04/2021), Colonoscopy, Hernia repair, Procedure on hip, Procedure on knee. Medicatio (more content not included)... Normal [facility] Comment on above: Result Comment: Elec tronically Signed By: Juancarlos Josue PA-C\.br\Date and Time Signed: 11/27/23 18:42 EST\.br\Electronically Co-Signed By: Kavon Johnson DO\.br\Date and Time Co-Signed: 11/28/23 17:15 EST Auto Diffon 11-27-2023 Basophils/100 WBC (Bld) 0.7 % Normal 0.0-2.0 F [facility] Comment on above: Order Comment: Order Added by Discern Expert. Performed By: #### 2 771683, 4437649, [id number], 9742033 ####[facility] [address] [place] [address] Basophils/Leukocytes Auto (Bld) [Pure # fraction] 0.1 E9/L Normal 0.0-0.2 [facility] Comment on above: Order Comment: Order Added by Discern Expert. Performed By: #### 2 389307, 3913023, 48487474, 0743606 ####[place] [address] [place] [address] Eosinophils/100 WBC (Bld) 0.0 % Normal 0.0-8.0 [facility] Comment on above: Order Comment: Order Added by Discern Expert. Performed By: #### 2 416276, 8428000, 64273554, 4361193 ####[place] [place] [address] Eosinophils/Leukocytes Auto (Bld) [Pure # fraction] 0.0 E9/L Normal 0.0-0.5 [facility] Comment on above: Order Comment: Order Added by Discern Expert. Performed By: #### 2 833179, 9824741, 50449338, 5532748 ####[address] [address] Lymphocytes/100 WBC (Bld) 18.8 % Normal 14.0-50.0 [facility] Comment on above: Order Comment: Order Added by Discern Expert. Performed By: #### 2 924123, 6729636, 27665532, 5091162 ####[address] [address] Lymphocytes/Leukocytes Auto (Bld) [Pure # fraction] 1.8 E9/L Normal 1.0-4.0 [facility] Comment on above: Order Comment: Order Added by Discern Expert. Performed By: #### 2 534890, 5910342, 33767517, 4632198 ####[address] [address] Monocytes/100 WBC (Bld) 9.3 % Normal 4.0-14.0 [facility] Comment on above: Order Comment: Order Added by Discern Expert. Performed By: #### 2 115070, 3680844, 54349706, 4961374 ####[address] [address] Monocytes/Leukocytes Auto (Bld) [Pure # fraction] 0.9 E9/L Normal 0.2-1.0 [facility] Comment on above: Order Comment: Order Added by Discern Expert. Performed By: #### 2 232207, 5588049, 07548808, 4186427 ####[facility] [address] [place] [address] Neutrophils/100 WBC (Bld) 71.2 % Normal 36.0-75.0 [facility] Comment on above: Order Comment: Order Added by Discern Expert. Performed By: #### 2 663168, 5180765, 27979216, 5122577 ####[facility] [address] [place] [address] Neutrophils/Leukocytes Auto (Bld) [Pure # fraction] 6.9 E9/L Normal 2.0-7.5 [facility] Comment on above: Order Comment: Order Added by Discern Expert. Performed By: #### 2 751473, 7956474, 62049806, 3155089 ####[facility] [address] [place] [address] BMPon 11-27-2023 Anion gap [Moles/Vol] 13 mmol/L Normal 6-16 [facility] Comment on above: Performed By: #### 2 739706, 4229029, 48654714, 5672225 ####[facility] [address] [place] [address] BUN/Creat Ratio 21 No Units High 10-20 [facility] Comment on above: Performed By: #### 2 672798, 1879147, 15288706, 7444890 ####[facility] [facility] [address] [place] [address] Calcium [Mass/Vol] 9.2 mg/dL Normal 8.9-11.1 [facility] Comment on above: Performed By: #### 2 620230, 0951604, 84792253, 1195616 ####[facility] [address] [place] [address] Chloride [Moles/Vol] 105 mmol/L Normal 101-111 [facility] Comment on above: Performed By: #### 2 618951, 8764511, 24265309, 8525343 ####[facility] [address] [place] [address] CO2 [Moles/Vol] 24 mmol/L Normal 21-31 [facility] Comment on above: Performed By: #### 2 560233, 7886152, 91061588, 4987857 ####[facility] [address] [place] [address] Creatinine [Mass/Vol] 0.7 mg/dL Normal 0.5-1.3 [facility] Comment on above: Performed By: #### 2 075459, 6967707, 20812863, 0314049 ####[facility] [address] [place] [address] Glucose [Mass/Vol] 121 mg/dL Normal 55-199 [facility] Comment on above: Performed By: #### 2 471742, 7674682, 80383183, 6185584 ####[facility] [address] [place] [address] Potassium [Moles/Vol] 3.9 mmol/L Normal 3.5-5.3 [facility] Comment on above: Performed By: #### 2 539679, 4277280, 41489910, 7006651 ####[facility] [address] [place] [address] Sodium [Moles/Vol] 138 mmol/L Normal 135-145 [facility] Comment on above: Performed By: #### 2 033660, 1159953, 06259285, 4004711 ####[facility] [address] [place] [address] Urea nitrogen [Mass/Vol] 15 mg/dL Normal 5-21 [facility] Comment on above: Performed By: #### 2 989679, 4675859, 90155053, 9268940 ####[facility] [address] [place] [address] CBC w/ Auto Diffon 4 Erythrocyte distribution width (RBC) [Ratio] 14.0 % Normal 10.9-14.2 [facility] Comment on above: Performed By: #### 2 568750, 9509428, 11186843, 7353801 ####[place] [address] [place] 0237457 Hematocrit (Bld) [Volume fraction] 35.0 % Low 37.7-49.0 [facility] Comment on above: Performed By: #### 2 247589, 6415807, 20863209, 9478883 ####[facility] [address] [place], [place] [address] Hemoglobin (Bld) [Mass/Vol] 11.7 g/dL Low 13.5-17.5 [facility] Comment on above: Performed By: #### 2 423201, 7262531, 81965809, 3808841 ####[place] 2287957 MCH (RBC) [Entitic mass] 29.1 pg Normal 27.0-34.0 [facility] Comment on above: Performed By: #### 2 153835, 0652124, 01251523, 0852689 ####[place] 2287957 MCHC (RBC) [Mass/Vol] 33.3 g/dL Normal 31.4-36.0 [facility] Comment on above: Performed By: #### 2 356058, 7389466, 41885910, 4241586 ####[address] [address] MCV (RBC) [Entitic vol] 87.3 fL Normal 80.0-100.0 F [facility] Comment on above: Performed By: #### 2 295405, 4378332, 50823941, 5793249 ####[facility] [address] [place] [address] Platelet mean volume (Bld) [Entitic vol] 6.3 fL Low 6.4-10.8 [facility] Comment on above: Performed By: #### 2 488656, 8827543, 24142949, 9261215 ####[facility] [address] [place] [address] Platelets (Bld) [#/Vol] 462.0 E9/L Normal 150. 0-500. 0 [facility] Comment on above: Performed By: #### 2 188529, 7891458, 92134611, 4128355 ####[facility] [address] [place] [address] RBC (Bld) [#/Vol] 4.0 E12/L Low 4.3-5.9 [facility] Comment on above: Performed By: #### 2 635082, 5678043, 34153281, 8833096 ####[facility] [address] [place] [address] WBC corrected for nucl RBC Auto (Bld) [#/Vol] 9.7 E9/L Normal 4.0-11.0 [facility] Comment on above: Performed By: #### 2 003790, 3280808, 90778669, 1316628 ####[place] [address] [place] [address] Consent for Treatmenton 11-16 Consent for Treatment [id number] Normal [facility] Discharge Instructionson Discharge Instructions [id number] Normal [facility] ED Clinical Summaryon 2023 ED Clinical Summary (Inserted Image. Perla ble to display) [address] [address] ED Clinical Summary Person Information Name: JAM TOSCANO [facility] Age: 58 Years : 1965 Sex: Male Language: [place] Citizen PCP: Jose L Lackey MD Marital Status: Single MRN: Visit Id: Visit Reason: Ankle pain-swelling; Knee [...] 11/27/2023 12:48:44 11/27/2023 12:48:44 11/27/2023 12:48:44 ADDRESS: [address] [place] [address] [facility] [id number] PHYS DOC NOTES: MEDICAL INFORMATION: Prescriptions Given: New Medications [id number], [address], [place] [id number], [phone] acetaminophen-oxycodone (Percocet 5 mg-325 mg oral tablet) [...] up: With: Address: When: Jose L Lackey [address] [place] [address], [facility] [address] Business (1) In 3 days 11/30/2023 DIAGNOSIS: Joint pain; Rheumatoid arthritis Normal [facility] ED Patient Education Noteon 11-27-2023 ED Patient [...] in your joints. General instructions ? Take dtek-upp-bivlnjh and prescription medicines only as told by your health care provider. ? Keep all follow-up visits. This is important. Where to find more information ? [employer]: [email or web address].[email or web address] ? Arth[employer] Foundation: [...] than y (more content not included)... Normal [facility] ED Patient Summaryon 024 ED Patient Summary (Inserted Image. Perla ble to display) [address] [address] Patient Discharge Instructions Person Information Name: JAM TOSCANO Age: 58 Years Arrival Date: 11/27/2023 10:14:59 Discharge Diagnosis: Joint pain; Rheumatoid arthritis Primary Care Physician: Jose L Lackey MD Provider Information Primary Provider: Kavon Johnson DO Advanced Fitness Trainer:Juancarlos Josue PA-C The exam and treatment you received in the Emergency Department were for an urgent problem and are not intended as complete care. It is important that you follow up with a doctor, nurse practitioner, or physician?s junior assistant manager for ongoing care. If your symptoms become [...] Instructions: With: Address: When: Jose L Lackey [address] [place] [address], [facility] [address] Business (1) In 3 days 11/30/2023 In the event that this physician does not participate in your insurance network, please consult with your insurance company to find a nearby participating provider. Patient Education Materials: Rheumatoid Arthritis A MESSAGE TO ALL PATIENTS REGARDING OPIOIDS PRESCRIPTION OPIOIDS: WHAT YOU NEED TO KNOW Prescription opioids can be used to help relieve udnwxpsq-lb-okrqku pain and are often prescribed following a [...] be struggling with addiction, tell your health healthcare risk control consultant and ask for guidance or call [facility]?S National Helpline at 2-491-998-VIO (more content not included)... Normal [facility] eGFRon 11-27-2023 GFR/1.73 sq M.predicted among non-blacks MDRD (S/P/Bld) [Vol rate/Area] mL/min/{1.73_m2} Normal >=59 [facility] Comment on above: Order Comment: Order added by Discern Expert. Performed By: #### 2 098941, 1954207, 86681464, 7647711 ####[facility] [address] [place] [address] ED Note-Physicianon 11-08-20 ED Note-Physician Basic Information [...] day(s), # 20 tab(s), Refills(s) 0, Pharmacy: [facility]/pharmacy #[id number], 167, cm, 11/04/23 17:47:00 EST, Height/Length Dosing, 73.5, kg, 11/04/23 17:47:00 EST, Weight Dosing 2. Hypokalemia (E87.6: Hypokalemia) Ordered: amoxicillin-clavulanate, = 1 tab(s), Oral, q12hr, X 10 day(s), # 20 tab(s), Refills(s) 0, Pharmacy: [facility]/pharmacy #6177, 167, cm, 11/04/23 17:47:00 EST, Height/Length Dosing, 73.5, kg, 11/04/23 17:47:00 EST, Weight Dosing 4. Colitis (K52.9: Noninfective gastroenteritis and colitis, unspecified) Ordered: amoxicillin-clavulanate, = 1 tab(s), Oral, q12hr, X 10 day(s), # 20 tab(s), Refills(s) 0, Pharmacy: [facility]/pharmacy #[id number], 167, cm, 11/04/23 17:47:00 EST, Height/Length [...] Level PT & PTT Rapid COVID Antigen ([facility]) Saline Lock Insert Troponin 0 Hr. UA [...] MD In 3 days 11/07/2023 EST [address] [place] [address]- Additional Instructions: Patient Education COVID-19 Colitis Hyp (more content not included)... Normal [facility] Comment on above: Result Comment: Elec tronically Signed By: Barbara Brand PA-C\.br\Date and Time Signed: 11/04/23 20:21 EST\.br\Electronically Co-Signed By: Kavon Johnson DO\.br\Date and Time Co-Signed: 11/08/23 19:04 EST Reportability Response - Pub lic Healthon 11-08-2023 Reportability Response - Public Health {wb-3s-3u-j0-z6-l0-48-3d- v8-gu-9j-cy-vh-a5-f5-2f}X ML Normal [facility] Auto Diffon 11-04-2023 Basophils/100 WBC (Bld) 0.3 % Normal 0.0-2.0 [facility] Comment on above: Order Comment: Order Added by Discern Expert. Performed By: #### 1 6446114, 4529329, 33942074, 11417432, 8556555, 7185061, 4925372, 3967629 ####[facility] [address] [place] [address] Basophils/Leukocytes Auto (Bld) [Pure # fraction] 0.0 E9/L Normal 0.0-0.2 [facility] Comment on above: Order Comment: Order Added by Discern Expert. Performed By: #### 1 4250346, 0960574, 94497634, 89637672, 2384273, 8824506, 0257533, 8884775 ####[facility] [address] [place] [address] Eosinophils/100 WBC (Bld) 0.0 % Normal 0.0-8.0 [facility] Comment on above: Order Comment: Order Added by Discern Expert. Performed By: #### 1 2818363, 2213707, 64727064, 09759648, 1024936, 6205673, 9895310, 8139331 ####Coy Simpson [address] [address] Eosinophils/Leukocytes Auto (Bld) [Pure # fraction] 0.0 E9/L Normal 0.0-0.5 [facility] Comment on above: Order Comment: Order Added by Discern Expert. Performed By: #### 1 8853329, 1087985, 82985775, 25945410, 7753415, 8791502, 5426445, 7273114 ####[address] [address] Lymphocytes/100 WBC (Bld) 18.0 % Normal 14.0-50.0 [facility] Comment on above: Order Comment: Order Added by Discern Expert. Performed By: #### 1 3545508, 8543166, 50378937, 19551955, 8047519, 7651609, 6240056, 3874787 ####[address] [address] Lymphocytes/Leukocytes Auto (Bld) [Pure # fraction] 1.1 E9/L Normal 1.0-4.0 [facility] Comment on above: Order Comment: Order Added by Discern Expert. Performed By: #### 1 8638382, 0570421, 58871066, 99087075, 7992869, 3832052, 0389754, 7276100 ####[address] [address] Monocytes/100 WBC (Bld) 8.0 % Normal 4.0-14.0 [facility] Comment on above: Order Comment: Order Added by Discern Expert. Performed By: #### 1 8328330, 6987709, 10571209, 23189246, 2697470, 5777932, 7791177, 8986365 ####[address] [address] Monocytes/Leukocytes Auto (Bld) [Pure # fraction] 0.5 E9/L Normal 0.2-1.0 [facility] Comment on above: Order Comment: Order Added by Discern Expert. Performed By: #### 1 0839023, 7568516, 93886052, 24506885, 4186148, 0733359, 8374729, 1127734 ####[place] [address] [place] [address] Neutrophils/100 WBC (Bld) 73.7 % Normal 36.0-75.0 [facility] Comment on above: Order Comment: Order Added by Discern Expert. Performed By: #### 1 1043690, 1616724, 08061105, 25397285, 3173692, 9796869, 7769278, 3398925 ####[facility] [address] [place] [address] Neutrophils/Leukocytes Auto (Bld) [Pure # fraction] 4.5 E9/L Normal 2.0-7.5 [facility] Comment on above: Order Comment: Order Added by Discern Expert. Performed By: #### 1 9443924, 1244335, 37469198, 49191061, 0617039, 3978041, 0506085, 0983829 ####[address] [address] CBC w/ Auto Diffon 3 Erythrocyte distribution width (RBC) [Ratio] 14.0 % Normal 10.9-14.2 [facility] Comment on above: Performed By: #### 1 4431779, 3883489, 96811192, 32418880, 2306007, 1115153, 1334249, 6510549 ####[place] [address] [place] [address] Hematocrit (Bld) [Volume fraction] 33.4 % Low 37.7-49.0 [facility] Comment on above: Performed By: #### 1 2508704, 6221351, 67329178, 37067869, 6559511, 3559811, 9939078, 3687725 ####[facility] [address] [place] [address] Hemoglobin (Bld) [Mass/Vol] 11.3 g/dL Low 13.5-17.5 [facility] Comment on above: Performed By: #### 1 3894051, 5893517, 85756859, 48389021, 7303858, 3972937, 7052385, 3135339 ####[place] [address] [place] [address] MCH (RBC) [Entitic mass] 30.4 pg Normal 27.0-34.0 [facility] Comment on above: Performed By: #### 1 6467743, 5604030, 33959436, 77250499, 5668716, 1327404, 3966346, 6359761 ####[address] [address] MCHC (RBC) [Mass/Vol] 33.9 g/dL Normal 31.4-36.0 [facility] Comment on above: Performed By: #### 1 9671140, 9093323, 21463009, 08983657, 0925483, 4034142, 5411122, 3808137 ####[place] [address]957 MCV (RBC) [Entitic vol] 89.7 fL Normal 80.0-100.0 F [facility] Comment on above: Performed By: #### 1 5800701, 9670186, 95632248, 18430614, 7598187, 4345546, 2078088, 5773614 ####[address] [address] Platelet mean volume (Bld) [Entitic vol] 6.4 fL Normal 6.4-10.8 [facility] Comment on above: Performed By: #### 1 4940465, 2220181, 21364720, 93080999, 4173590, 5072538, 5107868, 2112222 ####[address] [address] Platelets (Bld) [#/Vol] 224.0 E9/L Normal 150. 0-500. 0 [facility] Comment on above: Performed By: #### 1 7207668, 5252106, 46244902, 73835417, 4392876, 9042494, 5131191, 3252865 ####[facility] [address] [place] [address] RBC (Bld) [#/Vol] 3.7 E12/L Low 4.3-5.9 [facility] Comment on above: Performed By: #### 1 3840723, 7315816, 74904568, 78880959, 9212953, 9888782, 4774194, 5265579 ####[facility] [address] [place] [address] WBC corrected for nucl RBC Auto (Bld) [#/Vol] 6.0 E9/L Normal 4.0-11.0 [facility] Comment on above: Performed By: #### 1 8019069, 4890691, 14719952, 15423659, 7450436, 5274041, 3881452, 4909491 ####[address] [address] CMPon 11-04-2023 Albumin [Mass/Vol] 3.4 g/dL Normal 3.3-5.0 [facility] Comment on above: Performed By: #### 1 9384487, 5576326, 54649216, 08799685, 9643106, 6256711, 4978906, 1114445 ####[place] [address] [place] [address] Albumin/Globulin [Mass ratio] 1.1 {ratio} Normal 1.1-2.2 [facility] Comment on above: Performed By: #### 1 6985067, 5110750, 24924026, 41006661, 6512568, 3672924, 3446182, 4406525 ####[place] [address] [place] [address] Alk Phos 106 Int._Unit/L High 21-98 [facility] Comment on above: Performed By: #### 1 7213636, 1924771, 15917753, 37672643, 0834064, 6548570, 6465884, 6830533 ####[facility] [address] [place] [address] ALT 19 Int._Unit/L Normal 6-46 [facility] Comment on above: Performed By: #### 1 7210566, 8229425, 53041282, 19539295, 2797728, 5605469, 2357297, 1653492 ####[facility] [address] [place] [address] Anion gap [Moles/Vol] 10 mmol/L Normal 6-16 [facility] Comment on above: Performed By: #### 1 2670635, 0258368, 58126314, 37693518, 8566116, 2872670, 3680717, 2478686 ####[facility] [address] [place] [address] AST 25 Int._Unit/L Normal 5-43 [facility] Comment on above: Performed By: #### 1 1829886, 3631153, 22005897, 96559374, 9289469, 1764669, 4638720, 0987700 ####[facility] [address] [place] [address] Bili Total 0.5 mg/dL Normal 0.0-1.1 [facility] Comment on above: Performed By: #### 1 2847679, 1112330, 09786736, 36236482, 6691524, 2806388, 7183160, 2939271 ####[facility] [address] [place] [address] BUN/Creat Ratio 13 No Units Normal 10-20 [facility] Comment on above: Performed By: #### 1 3528868, 7121553, 98027137, 98934629, 8155866, 0316517, 9818195, 1425152 ####[facility] [address] [place] [address] Calcium [Mass/Vol] 8.2 mg/dL Low 8.9-11.1 [facility] Comment on above: Performed By: #### 1 1297216, 7067161, 09849568, 07803768, 7496134, 3190934, 7578908, 6000364 ####[facility] [address] [place] [address] Chloride [Moles/Vol] 105 mmol/L Normal 101-111 [facility] Comment on above: Performed By: #### 1 8575233, 8371677, 41729689, 74196942, 2490482, 7847710, 9181059, 7209212 ####[facility] [address] [place] [address] CO2 [Moles/Vol] 26 mmol/L Normal 21-31 [facility] Comment on above: Performed By: #### 1 4130341, 3847447, 17287980, 18369291, 7065671, 5591089, 1068028, 2365463 ####[facility] [address] [place] [address] Creatinine [Mass/Vol] 0.9 mg/dL Normal 0.5-1.3 [facility] Comment on above: Performed By: #### 1 3762195, 8642759, 37044856, 14793739, 2765042, 2793730, 8401241, 8498643 ####[facility] [address] [place] [address] Globulin (S) [Mass/Vol] 3.0 g/dL Normal 1.4-4.0 F [facility] Comment on above: Performed By: #### 1 0216704, 9813231, 31842797, 11850083, 9118064, 5141772, 2393110, 9793018 ####[facility] [address] [place] [address] Glucose [Mass/Vol] 102 mg/dL Normal 55-199 [facility] Comment on above: Performed By: #### 1 7390182, 2949812, 34802296, 09470309, 1577800, 0258916, 7492765, 5832855 ####[facility] [address] [place] [address] Potassium [Moles/Vol] 3.3 mmol/L Low 3.5-5.3 [facility] Comment on above: Performed By: #### 1 1897055, 4645134, 75569142, 49615438, 3051391, 0497730, 3803641, 8160064 ####[facility] [address] [place] [address] Protein [Mass/Vol] 6.4 g/dL Normal 6.0-7.8 [facility] Comment on above: Performed By: #### 1 3381654, 6732625, 25566334, 30032467, 4645225, 4007209, 0900507, 9538947 ####[facility] [address] [place] [address] Sodium [Moles/Vol] 138 mmol/L Normal 135-145 [facility] Comment on above: Performed By: #### 1 7015353, 9545609, 09719076, 41292652, 5275598, 5350554, 0016902, 0927216 ####[facility] [address] [place] [address] Urea nitrogen [Mass/Vol] 12 mg/dL Normal 5-21 [facility] Comment on above: Performed By: #### 1 4164137, 4992954, 28578208, 29047573, 6191186, 9689068, 1442453, 3903837 ####[facility] [address] [place] [address] CT Abdomen/Pelvis w/ Contras ton 11-04-2023 CT [...] 300 Contrast amount in ml's: 100 Normal [facility] Consent for Treatmenton 10-17 Consent for Treatment [id number]#[id number] Normal [facility] Discharge Instructionson Discharge Instructions [id number] Normal [facility] ED Clinical Summaryon 2022 ED Clinical Summary (Inserted Image. Perla ble to display) [place] [id number] ED Clinical Summary Person Information Name: JAM TOSCANO [facility] Age: 58 Years : 1965 Sex: Male Language: [place] Citizen PCP: Jose L Lackey MD Marital Status: [...] 11/04/2023 20:23:46 11/04/2023 20:23:46 11/04/2023 20:23:46 ADDRESS: [address] [place] [address] [facility] [phone] PHYS DOC NOTES: MEDICAL INFORMATION: Prescriptions Given: New Medications [facility]/pharmacy #[id number], [address], [place] [id number], [phone] amoxicillin-clavulanate (Augmentin 875 mg oral tablet) 1 [...] With: Address: When: Jose L Lackey MD [address] [place] [address] [place] [address] In 3 days 11/07/2023 DIAGNOSIS: 1:COVID-19; 2:Hypokalemia; 3:Pneumonia due to COVID-19 virus; 4:Colitis; Pneumonia due to coronavirus disease 2019 Normal [facility] ED Patient Education Noteon 11-04-2023 ED Patient [...] you start to feel better. ? Take jzdk-dxp-brtokdx and prescription medicines only as told by [...] provider. Document Revised: 07/09/2021 Document Reviewed: 07/09/2021 [employer] Patient Education ? 2022 [employer] Hypokalemia Hypokalemia means that the amount [...] through an (more content not included)... Normal [facility] ED Patient Summaryon 023 ED Patient Summary (Inserted Image. Perla ble to display) [place] [address] Patient Discharge Instructions Person Information Name: JAM TOSCANO Age: 58 Years Arrival Date: 11/04/2023 17:35:01 Discharge Diagnosis: 1:COVID-19; 2:Hypokalemia; 3:Pneumonia due to COVID-19 virus; 4:Colitis; Pneumonia due to coronavirus disease 2018 Primary Care Physician: Jose L Lackey MD Provider Information Primary Provider: Kavon Johnson DO Advanced Fitness Trainer:None The exam and treatment you received in the Emergency Department were for an urgent problem and are not intended as complete care. It is important that you follow up with a doctor, nurse practitioner, or physician?s junior assistant manager for ongoing care. If your symptoms become [...] Address: When: Jose L Lackey MD [address] [facility] [place] [address] In 3 days 11/07/2023 In the event that this physician does not participate in your insurance network, please consult with your insurance company to find a nearby participating provider. Patient Education Materials: COVID-19; Colitis; Hypokalemia A MESSAGE TO ALL PATIENTS REGARDING OPIOIDS PRESCRIPTION OPIOIDS: WHAT YOU NEED TO KNOW Prescription opioids can be used to help relieve yxvcklsj-be-fnnzri pain and are often prescribed following a [...] be struggling with addiction, tell your health healthcare risk control consultant and as (more content not included)... Normal [facility] Lactic Acidon 11-04-2023 Lactic Acid Lvl 1.0 mmol/L Normal 0.5-2.2 [facility] Comment on above: Performed By: #### 1 0697758, 0045040, 13343545, 72142339, 3661469, 4973535, 1698818, 4446265 ####[facility] [address] [place] [address] Magnesiumon 11-04-2023 Magnesium [Mass/Vol] 1.4 mg/dL Normal 1.3-2.4 [facility] Comment on above: Performed By: #### 1 9060288, 4085482, 60126252, 88491184, 5912004, 1176432, 4709321, 2752244 ####[facility] [address] [place] [address] PT & PTTon 11-04-2023 aPTT Coag (PPP) [Time] 34.0 second(s) Normal 25.1-36.5 [facility] Comment on above: Result Comment: Para meter [...] the same coagulation reagent and instrumentation as [facility]. Currently there are no coagulation studies available worldwide for children to 14 days, and no normal ranges. Heparin therapeutic range (represented by Anti-Factor Xa activity of 0.2 - 0.4 U/mL) corresponds to PTT of 56.6 - 109.0 sec. Performed By: #### 1 3569066, 1156921, 01179470, 97836876, 7958611, 5048132, 6294352, 0627476 ####[facility] [address] [place] [address] INR Coag (PPP) [Relative time] 1.2 {INR} Invalid Interpretation Code [facility] Comment on above: Result Comment: INR results are specifically intended to assess patients stabilized on long-term Anticoagulation therapy suggested INR?s ?Less Intensive Anticoagulation? 2.0 ? 3.0 Conventional Range 3.0 ? 4.5 Performed By: #### 1 1161013, 1701657, 13878082, 86811027, 2114747, 4397651, 9241561, 2448770 ####[facility] [address] [place] [address] PT Coag (PPP) [Time] 13.7 second(s) High 9.4-12.5 [facility] Comment on above: Result Comment: 15 d [...] the same coagulation reagent and instrumentation as [facility]. Currently there are no coagulation studies available worldwide for children to 14 days, and no normal ranges. Performed By: #### 1 6759720, 6120131, 94607424, 27063026, 5857624, 9271681, 2504247, 9984505 ####[place] [address] [place] [address] Rapid COVID Antigen ([facility])on 11-04-2023 Rapid COV Int NEG Ctl Pass Normal [facility] Comment on above: Performed By: #### 2 [id number] ####[address] [address] Rapid COV Int POS Ctl Pass Normal [facility] Comment on above: Performed By: #### 2 [id number] ####[address] [address] SARS-CoV+SARS-CoV-2 (COVID-19) Ag IA.rapid Ql (Resp) Detected Abnormal Not Detected [facility] Comment on above: Result Comment: The [employer]? System for Rapid Detection of SARS-CoV-2 is [...] For in vitro diagnostic use. In the [facility], only for use under an Emergency Use [...] or revoked sooner. Performed By: #### 2 [id number] ####[facility] [place] [address] Reportability Response - Pub [facility] Healthon 11-04-2023 Reportability Response - Public Health {[id number]- [id number]}X ML Normal [facility] Troponin 0 Hr.on 11-04-2023 Troponin 9.30 pg/mL Low 15.90-38.4 0 [facility] Comment on above: Result Comment: The 95% CI (Confidence Interval) PPV (Positive Predictive Value) for myocardial infarction in females is 38 pg/mL, in males 51 pg/mL. The results should be used in conjunction with clinical conditions of myocardial infarction. (Access High Sensitivity Troponin I Instructions For Use, Missael Suraj, June 2018) Performed By: #### 1 4128826, 8215305, 96192174, 78650316, 2075674, 0754432, 9980341, 2404218 ####[facility] [address] [place] [address] UA With Cult Reflexon 2022 Bacteria LM Ql (Urine sed) 1+ /HPF Abnormal Trace [facility] Comment on above: Performed By: #### 1 3606978 ####[facility] [address] [place] [address] Bilirubin Ql (U) Negative Normal Negative [facility] Comment on above: Performed By: #### 1 5683343 ####[facility] [address] [place] [address] Clarity (U) CLOUDY Abnormal Clear [facility] Comment on above: Performed By: #### 1 8481413 ####[facility] [address] [place] [address] Color (U) YELLOW Normal Yellow [facility] Comment on above: Performed By: #### 1 2921289 ####[facility] [address] [place] [address] Crystals LM Ql (Urine sed) Present Normal [facility] Comment on above: Performed By: #### 1 0687760 ####[facility] [address] [place] [address] Epithelial cells.squamous LM.HPF (Urine sed) [#/Area] 0-2 Normal 0-2 [facility] Comment on above: Performed By: #### 1 0108320 ####[facility] [address] [place] [address] Glucose Test strip (U) [Mass/Vol] Negative Normal Negative [facility] Comment on above: Performed By: #### 1 9169372 ####[facility] [address] [place] [address] Hemoglobin Ql (U) 3+ Abnormal Negative [facility] Comment on above: Performed By: #### 1 4351796 ####[facility] [address] [place] [address] Ketones (U) [Mass/Vol] Negative Normal Negative Fi [facility] Comment on above: Performed By: #### 1 2443336 ####[facility] [address] [place] [address] [place].plasma/[place].RB C (Bld) [Mass ratio] 21-30 Abnormal 0-3 [facility] Comment on above: Performed By: #### 1 0006078 ####[address] [address] Nitrite Ql (U) Negative Normal Negative [facility] Comment on above: Performed By: #### 1 3972264 ####[place] [address] pH (U) 7.0 [pH] Invalid Interpretation Code 5.0-9.0 [facility] Comment on above: Performed By: #### 1 5884457 ####[place] [address] Protein (U) [Mass/Vol] 1+ Abnormal Negative [facility] Comment on above: Performed By: #### 1 6177937 ####[place] [address] Specific gravity (U) [Rel density] 1.020 Invalid Interpretation Code 1.005-1.03 0 [facility] Comment on above: Performed By: #### 1 3384614 ####[place] 2287957 Type of Urine collection method Clean Catch Normal [facility] Comment on above: Performed By: #### 1 0815849 ####[address] [address] Urobilinogen Qn (U) 0.2 {Rosina'U}/dL Normal 0.0-1.0 [facility] Comment on above: Performed By: #### 1 1297105 ####[address] [address] WBC Auto Ql (U) Negative Normal Negative [facility] Comment on above: Performed By: #### 1 8340284 ####[address] [address] WBC casts LM.LPF (Urine sed) [#/Area] 0-3 Normal [facility] Comment on above: Performed By: #### 1 8930964 ####[facility] [address] [place] [address] WBC LM.HPF (Urine sed) [#/Area] 0-5 Normal 0-5 [facility] Comment on above: Performed By: #### 1 5953123 ####[facility] [address] [place] [address] XR Chest Single Viewon 11-04 XR Chest [...] Addison MD, V. Transcribed by: BERNARD Technologist: SRF Technical Comments Radiation Dose: Ka,r in mGy = na DAP = na Normal [facility] eGFRon 11-04-2023 GFR/1.73 sq M.predicted among non-blacks MDRD (S/P/Bld) [Vol rate/Area] mL/min/{1.73_m2} Normal >=59 [facility] Comment on above: Order Comment: Order added by Discern Expert. Performed By: #### 1 9016495, 6604627, 79418075, 23479748, 8879976, 1160140, 9299985, 9768524 ####[facility] [address] [place] [address] Auto Diffon 10-23-2023 Basophils/100 WBC (Bld) 0.2 % Normal 0.0-2.0 F [facility] Comment on above: Order Comment: Order Added by Discern Expert. Performed By: #### 2 743379, 5444155, 7907234, 2585672, 48878287, 8179094 #### [facility] [address] [place] [address] Basophils/Leukocytes Auto (Bld) [Pure # fraction] 0.0 E9/L Normal 0.0-0.2 [facility] Comment on above: Order Comment: Order Added by Discern Expert. Performed By: #### 2 880028, 6191754, 2231853, 1695433, 67932051, 2819128 #### [facility] [address] [place] [address] Eosinophils/100 WBC (Bld) 0.0 % Normal 0.0-8.0 [facility] Comment on above: Order Comment: Order Added by Discern Expert. Performed By: #### 2 219152, 7727583, 4217333, 5663827, 07557766, 1061509 #### [facility] [address] [place] [address] Eosinophils/Leukocytes Auto (Bld) [Pure # fraction] 0.0 E9/L Normal 0.0-0.5 [facility] Comment on above: Order Comment: Order Added by Discern Expert. Performed By: #### 2 874995, 2929094, 2195417, 0715386, 86493244, 6988793 #### [facility] [address] [place] [address] Lymphocytes/100 WBC (Bld) 7.8 % Low 14.0-50.0 [facility] Comment on above: Order Comment: Order Added by Discern Expert. Performed By: #### 2 910291, 9847097, 7860874, 1464842, 46173637, 4191375 #### [facility] [address] [place] [address] Lymphocytes/Leukocytes Auto (Bld) [Pure # fraction] 0.8 E9/L Low 1.0-4.0 [facility] Comment on above: Order Comment: Order Added by Discern Expert. Performed By: #### 2 135938, 8481753, 8383065, 2500818, 55201797, 4029532 #### [facility] [address] [place] [address] Monocytes/100 WBC (Bld) 1.6 % Low 4.0-14.0 [facility] Comment on above: Order Comment: Order Added by Discern Expert. Performed By: #### 2 895079, 8651553, 6621303, 8634429, 33911998, 5035315 #### [facility] [address] [place] [address] Monocytes/Leukocytes Auto (Bld) [Pure # fraction] 0.2 E9/L Normal 0.2-1.0 [facility] Comment on above: Order Comment: Order Added by Discern Expert. Performed By: #### 2 843350, 3611710, 1984832, 9611180, 51851110, 0737848 #### [facility] [address] [place] [address] Neutrophils/100 WBC (Bld) 90.4 % High 36.0-75.0 [facility] Comment on above: Order Comment: Order Added by Discern Expert. Performed By: #### 2 131677, 1212846, 0196018, 3452830, 94664887, 9697324 #### [facility] [address] [place] [address] Neutrophils/Leukocytes Auto (Bld) [Pure # fraction] 8.9 E9/L High 2.0-7.5 [facility] Comment on above: Order Comment: Order Added by Discern Expert. Performed By: #### 2 579764, 5306811, 6983566, 5027097, 39628868, 9744892 #### [facility] [address] [place] [address] BMPon 10-23-2023 Creatinine [Mass/Vol] 0.8 mg/dL Normal 0.5-1.3 [facility] Comment on above: Performed By: #### 2 976717, 1537301, 0377506, 8434304, 46043307, 2670070 ####[facility] [address] [place] [address] Urea nitrogen [Mass/Vol] 12 mg/dL Normal 5-21 [facility] Comment on above: Performed By: #### 2 271968, 1727435, 2598542, 5712086, 04886530, 3487890 ####[facility] [address] [place] [address] Urea nitrogen/Creatinine [Mass ratio] 15 No Units Normal 10-20 [facility] Comment on above: Performed By: #### 2 372275, 6852162, 3137649, 0041754, 49357691, 5390352 ####[facility] [address] [place] [address] Anion gap [Moles/Vol] 11 mmol/L Normal 6-16 [facility] Comment on above: Performed By: #### 2 671034, 1808065, 7673381, 4824855, 55340169, 6617412 ####[facility] [address] [place] [address] Calcium [Mass/Vol] 9.5 mg/dL Normal 8.9-11.1 [facility] Comment on above: Performed By: #### 2 126742, 0757344, 0865645, 4994703, 10952342, 5769883 ####[facility] [address] [place] [address] Chloride [Moles/Vol] 110 mmol/L Normal 101-111 [facility] Comment on above: Performed By: #### 2 913513, 7536639, 9336021, 5847434, 92238184, 8027183 ####[facility] [address] [place] [address] CO2 [Moles/Vol] 22 mmol/L Normal 21-31 [facility] Comment on above: Performed By: #### 2 825857, 4342573, 4984620, 6381676, 85900581, 1890466 ####[facility] [address] [place] [address] Glucose [Mass/Vol] 149 mg/dL Normal 55-199 [facility] Comment on above: Result Comment: If t his glucose result represents a fasting glucose, interpretation should refer to the following reference range: 55-99 mg/dL Performed By: #### 2 445987, 0504394, 5136389, 3405224, 63126403, 9634598 ####[facility] [address] [place] [address] Potassium [Moles/Vol] 3.4 mmol/L Low 3.5-5.3 [facility] Comment on above: Performed By: #### 2 473469, 5718116, 8653613, 6438347, 38625635, 8754067 ####[facility] [address] [place] [address] Sodium [Moles/Vol] 140 mmol/L Normal 135-145 [facility] Comment on above: Performed By: #### 2 550888, 2100970, 2291453, 0455866, 39463368, 6703962 ####[facility] [address] [place] [address] CBC w/ Auto Diffon 3 Erythrocyte distribution width (RBC) [Ratio] 13.7 % Normal 10.9-14.2 [facility] Comment on above: Performed By: #### 2 491841, 1548932, 3013801, 5199628, 61141001, 9126237 #### [facility] [address] [place] [address] Hematocrit (Bld) [Volume fraction] 38.3 % Normal 37.7-49.0 [facility] Comment on above: Performed By: #### 2 315132, 5434505, 5486669, 1181801, 09459168, 8996881 #### [facility] [address] [place] [address] Hemoglobin (Bld) [Mass/Vol] 12.9 g/dL Low 13.5-17.5 [facility] Comment on above: Performed By: #### 2 428504, 0907546, 1290046, 2197023, 20256793, 7447574 #### [facility] [address] [place] [address] MCH (RBC) [Entitic mass] 30.4 pg Normal 27.0-34.0 [facility] Comment on above: Performed By: #### 2 624220, 2240849, 8885357, 3436873, 64754720, 8800734 #### [facility] [address] [place], [place] [address] MCHC (RBC) [Mass/Vol] 33.7 g/dL Normal 31.4-36.0 [facility] Comment on above: Performed By: #### 2 820051, 7960343, 6981754, 2238362, 99036434, 9870805 #### [facility] [address] [place] [address] MCV (RBC) [Entitic vol] 90.2 fL Normal 80.0-100.0 F [facility] Comment on above: Performed By: #### 2 497979, 9278585, 1541948, 4655130, 60535007, 7761529 #### [facility] [address] [place] [address] Platelet mean volume (Bld) [Entitic vol] 6.1 fL Low 6.4-10.8 [facility] Comment on above: Performed By: #### 2 410989, 4490643, 9739629, 5587393, 73567054, 3084869 #### [facility] [address] [place] [address] Platelets (Bld) [#/Vol] 483.0 E9/L Normal 150. 0-500. 0 [facility] Comment on above: Performed By: #### 2 785746, 7179764, 0602494, 1893035, 49154151, 2116889 #### [facility] [address] [place] [address] RBC (Bld) [#/Vol] 4.2 E12/L Low 4.3-5.9 [facility] Comment on above: Performed By: #### 2 468516, 4597917, 6242852, 5809003, 83290416, 3194032 #### [facility] [address] [place] [address] WBC corrected for nucl RBC Auto (Bld) [#/Vol] 9.8 E9/L Normal 4.0-11.0 [facility] Comment on above: Performed By: #### 2 888855, 5039436, 8197629, 2538124, 04481582, 8218481 #### [facility] [address] [place] [address] CT Abdomen/Pelvis w/o Contra ston 10-23-2023 CT Abdomen/Pelvis w/o Contrast Exam Date/Time: [...] Oral contrast amount in ml's: 0 Normal [facility] Consent for Treatmenton Consent for Treatment [id number] Normal [facility] Discharge Instructionson Discharge Instructions [id number] Normal [facility] ED Clinical Summaryon 2022 ED Clinical Summary (Inserted Image. Perla ble to display) [place] [id number] ED Clinical Summary Person Information Name: JAM TOSCANO [facility] Age: 58 Years : 1965 Sex: Male Language: [place] Citizen PCP: Jose L Lackey MD Marital Status: [...] 10/23/2023 15:54:39 10/23/2023 15:54:39 10/23/2023 15:54:39 ADDRESS: [address] [place] [address] [facility] [id number] PHYS DOC NOTES: MEDICAL INFORMATION: Prescriptions Given: New Medications [id number], [address], [place] [id number], [phone] acetaminophen-oxycodone (acetaminophen-oxycodone 325 mg-5 mg Tab) 1 Tablets By Mouth every 6 hours as needed for pain for 3 Days. Refills: 0. naproxen (naproxen 500 mg Tab) 1 Tablets By Mouth 2 times a day as needed for pain. Refills: 0. tamsulosin (Flomax 0.4 mg Cap) 1 Capsules By Mouth every day. Refills: 0. Medications to Continue Taking That Have Changed [facility], [address], [place] [id number], [phone] START: ondansetron (Zofran ODT 4 mg Tab-Dis) [...] Stones Follow up: With: Address: When: Otilia Layne [facility], [address] [phone] Business (1) In 3 days 12 (more content not included)... Normal [facility] ED Note-Physicianon 10-23-20 ED Note-Physician Basic Information Time Seen: Heath MORELOS, Santos Rouse 10/23/2023 14:03 Chief Complaint hx of cholytis [...] and Complexity of Problems Differential Diagnosis: [] [facility] Data External documents reviewed: [] My EKG [...] pain, # 20 tab(s), Refills(s) 0, Pharmacy: [id number], 168, cm, 10/23/23 13:41:00 EST, Height/Length Dosing, 75.1, kg, 10/23/23 13:41:00 EST, Weight Dosing ondansetron, 4 mg = 2 mL, Injection, IV Push, Once, Stop date 10/23/23 14:30:00 EST, STAT, Start date 10/23/23 14:30:00 EST, 10/23/23 14:30:00 EST ondansetron, 4 mg = 1 tab(s), Oral, q8hr, PRN Nausea/Vomiting, # 30 tab(s), Refills(s) 0, Pharmacy: [facility]/pharmacy #6177, 168, cm, 10/23/23 13:41:00 EST, Height/Length Dosing, 75.1, kg, 10/23/23 13:41:00 EST, Weight Dosing Sodium Chloride 0.9% intravenous solution, 1,000 mL, Soln-IV, IV, Once, Stop date 10/23/23 14:29:00 EST, STAT, Start date 10/23/23 14:29:00 EST, Infuse over 61, minute(s) tamsulosin, 0.4 mg = 1 cap(s), Oral, Daily, # 10 cap(s), Refills(s) 0, Pharmacy: [facility]/pharmacy #[id number], 168, cm, 10/23/23 13:41:00 EST, Height/Length Dosing, 75.1, k (more content not included)... Normal [facility] Comment on above: Result Comment: Elec tronically [...] these instructions at home: Medicines ? Take tbpq-lmx-oyaraag and prescription medicines only as told by [...] recommendations from (more content not included)... Normal [facility] ED Patient Summaryon 023 ED Patient Summary (Inserted Image. Perla ble to display) [place] [id number] Patient Discharge Instructions Person Information Name: JAM TOSCANO Age: 58 Years Arrival Date: 10/23/2023 13:30:39 Discharge Diagnosis: Kidney stone on left side Primary Care Physician: Jose L Lackey MD Provider Information Primary Provider: Zoila Castillo M.D. Advanced Fitness Trainer:None The exam and treatment you received in the Emergency Department were for an urgent problem and are not intended as complete care. It is important that you follow up with a doctor, nurse practitioner, or physician?s junior assistant manager for ongoing care. If your symptoms become worse or you do not improve as expected and you are unable to reach your usual health care provider, you should return to the Emergency Department. We are available 24 hours a day. JAM TOSCANO has been given the following list of patient education materials, prescriptions and follow-up instructions: Follow-up Instructions: With: Address: When: Otilia Layne [address] [place], [place] [phone] Business (1) In 3 days 10/26/2023 Comments: Follow-up with urology for further evaluation of your left-sided kidney stones. With: Address: When: Jose L Ziyad [address] [place] [address] [place] [phone] Business (1) In 3 days 10/26/2023 Comments: [...] opioids can be used to help relieve lckedwbd-qp-lhajfr pain and are often prescribed following a [...] your pharma (more content not included)... Normal [facility] Hep Func Panelon 10-23-2023 Bilirubin.indirect [Mass or moles/Vol] UTC Abnormal 0.1-0.9 [facility] Comment on above: Result Comment: Resu lt verified by Discern Rule. Performed result UT (Unable to Calculate) was sent as an Alpha code due the inability to calculate a valid numeric value. Performed By: #### 2 360690, 4878697, 5627913, 7034944, 36691896, 3317648 ####[facility] [address] [place] [address] Albumin [Mass/Vol] 3.5 g/dL Normal 3.3-5.0 [facility] Comment on above: Performed By: #### 2 789907, 8495748, 0152494, 3021574, 20364390, 3704026 ####[facility] [address] [place] [address] Albumin/Globulin (S) [Mass conc ratio] 1.0 Low 1.1-2.2 [facility] Comment on above: Performed By: #### 2 824388, 0114745, 9954346, 5637913, 88595054, 2671823 ####[facility] [address] [place] [address] ALP [Catalytic activity/Vol] 194 Int._Unit/L High 21-98 [facility] Comment on above: Performed By: #### 2 255587, 5083152, 0691173, 9809366, 76060343, 9438767 ####[facility] [address] [place] [address] ALT No additional P-5'-P [Catalytic activity/Vol] 32 Int._Unit/L Normal 6-46 [facility] Comment on above: Performed By: #### 2 656805, 1952824, 7255243, 9505619, 24480366, 2161976 ####[facility] [address] [place] [address] AST [Catalytic activity/Vol] 34 Int._Unit/L Normal 5-43 [facility] Comment on above: Performed By: #### 2 304219, 6365985, 1034032, 1646035, 61009039, 3861304 ####[facility] [address] [place] [address] Bilirubin [Mass/Vol] 0.4 mg/dL Normal 0.0-1.1 [facility] Comment on above: Performed By: #### 2 822023, 4276236, 7515871, 7424064, 97358927, 0977903 ####[facility] [address] [place] [address] Globulin (S) [Mass/Vol] 3.7 g/dL Normal 1.4-4.0 F [facility] Comment on above: Performed By: #### 2 207548, 9481904, 1013371, 7203042, 27766678, 7053620 ####[facility] [address] [place] [address] Protein [Mass/Vol] 7.2 g/dL Normal 6.0-7.8 [facility] Comment on above: Performed By: #### 2 402621, 3984429, 3579192, 7577790, 73439802, 0453322 ####[facility] [address] [place] [address] Bilirubin.direct [Mass/Vol] mg/dL Normal 0.1-0.4 [facility] Comment on above: Performed By: #### 2 528125, 7504781, 5497054, 5959685, 21052027, 1875471 ####[facility] [address] [place] [address] Lipase Levelon 10-23-2023 Lipase [Catalytic activity/Vol] 31 U/L Normal 13-58 [facility] Comment on above: Performed By: #### 2 160149, 0454872, 7771106, 2895049, 05640543, 3063548 #### [facility] [address] [place] [address] Physician Orderon 10-23-2023 Physician Order [id number] Normal [facility] UA With Cult Reflexon 2022 Bacteria LM Ql (Urine sed) 1+ /HPF Abnormal Trace [facility] Comment on above: Performed By: #### 1 0614471 #### [facility] [address] [place] [address] Bilirubin Ql (U) Negative Normal Negative [facility] Comment on above: Performed By: #### 1 8432374 #### [facility] [address] [place] [address] Clarity (U) CLEAR Normal Clear [facility] Comment on above: Performed By: #### 1 9921346 #### [facility] [address] [place] [address] Color (U) YELLOW Normal Yellow [facility] Comment on above: Performed By: #### 1 0725509 #### [facility] [address] [place] [address] Epithelial cells.squamous LM.HPF (Urine sed) [#/Area] 0-2 Normal 0-2 [facility] Comment on above: Performed By: #### 1 9896691 #### [facility] [address] [place] [address] Glucose Test strip (U) [Mass/Vol] Negative Normal Negative [facility] Comment on above: Performed By: #### 1 4703316 #### [facility] [address] [place] [address] Hemoglobin Ql (U) 3+ Abnormal Negative [facility] Comment on above: Performed By: #### 1 0633617 #### [facility] [address] [place] [address] Ketones (U) [Mass/Vol] Negative Normal Negative [facility] Comment on above: Performed By: #### 1 2238842 #### [facility] [address] [place] [address] [place].plasma/[place].RB C (Bld) [Mass ratio] 4-20 Normal 0-3 [facility] Comment on above: Performed By: #### 1 4688426 #### [facility] [address] [place] [address] Mucus Ql (Urine sed) TRACE Normal [facility] Comment on above: Performed By: #### 1 2646884 #### [facility] [address] [place] [address] Nitrite Ql (U) Negative Normal Negative [facility] Comment on above: Performed By: #### 1 4216528 #### [facility] [address] [place] [address] pH (U) 6.0 [pH] Invalid Interpretation Code 5.0-9.0 [facility] Comment on above: Performed By: #### 1 0125400 #### [facility] [address] [place] [address] Protein (U) [Mass/Vol] TRACE Abnormal Negative [facility] Comment on above: Performed By: #### 1 5873938 #### [facility] [address] [place] [address] Specific gravity (U) [Rel density] 1.010 Invalid Interpretation Code 1.005-1.03 0 [facility] Comment on above: Performed By: #### 1 9535943 #### [facility] [address] [place] [address] Type of Urine collection method Clean Catch Normal [facility] Comment on above: Performed By: #### 1 4178143 #### [facility] [address] [place] [address] Urobilinogen Qn (U) 0.2 {Rosina'U}/dL Normal 0.0-1.0 [facility] Comment on above: Performed By: #### 1 4468627 #### [facility] [address] [place] [address] WBC Auto Ql (U) TRACE Abnormal Negative [facility] Comment on above: Performed By: #### 1 3139879 #### [facility] [address] [place] [address] WBC LM.HPF (Urine sed) [#/Area] 0-5 Normal 0-5 [facility] Comment on above: Performed By: #### 1 7924591 #### [facility] [address] [place] [address] eGFRon 10-23-2023 GFR/1.73 sq M.predicted among non-blacks MDRD (S/P/Bld) [Vol rate/Area] 102 mL/min/1.73 m2 Normal >=59 [facility] Comment on above: Order Comment: Order added by Discern Expert. Result Comment: Disability Attorney clark kidney disease could be indicated at eGFR's of less than 60 mL/min/1.73m2. Kidney failure is indicated at less than 15 mL/min/1.73m2. Performed By: #### 2 [id number], [id number], [id number], [id number], [id number] ####[facility] [address] [place] [address] Physician Orderon 07-02-2023 Physician Order [id number]:1 [id number] Normal [facility] LIPID PROFILEon 02-11-2023 CHOL-HDL RATIO NORM SEE BELOW Normal [facility] Comment on above: Result Comment: 3.3 - 4.4 LOW RISK 4.4 - 7.1 AVERAGE RISK 7.1 - 11.0 MODERATE RISK >11.0 HIGH RISK Performed By: #### L CASEY LIVER #### [facility] [address] [place] [address] Dr. Rj Miller Cholesterol [Mass/Vol] 99 mg/dL Normal <=200 [facility] Comment on above: Performed By: #### L CASEY LIVER #### [facility] [address] [address] [address] Rj Miller Cholesterol in HDL [Mass/Vol] 44 mg/dL Normal 40-60 [facility] Comment on above: Performed By: #### L CASEY, LIVER #### [facility] [address] [place] [address] Dr. Rj Miller Cholesterol in LDL [Mass/Vol] 45.4 mg/dL Normal [facility] Comment on above: Performed By: #### L IPID, LIVER #### [facility] [address] [place] [address] Dr. Rj Miller Cholesterol.total/Cholest carlos in HDL [Mass ratio] 2.3 {ratio} Normal [facility] Comment on above: Performed By: #### L IPID, LIVER #### [facility] [address] [place] [address] Dr. Rj Miller HDL NORMAL > or = 60 mg/dl - LO W CARDIOVASCULAR RISK <40 mg/dl - HIGH CARDIOVASCULAR RISK Normal [facility] Comment on above: Performed By: #### L IPID, LIVER #### [facility] [address] [place] [address] Dr. Rj Miller LDL CALC NORMAL SEE BELOW Normal [facility] Comment on above: Result Comment: <100 mg/dl OPTIMAL 100 - 129 mg/dl NEAR OR ABOVE OPTIMAL 130 - 159 mg/dl BORDERLINE HIGH 160 - 189 mg/dl HIGH >190 mg/dl VERY HIGH Performed By: #### L IPID, LIVER #### [facility] [address] [place] [address] Dr. Rj Miller Triglyceride [Mass/Vol] 48 mg/dL Normal <=150 [facility] Comment on above: Performed By: #### L IPID, LIVER #### [facility] [address] [place] [address] Dr. Rj Miller VLDL CALC 9.6 mg/dL Normal [facility] Comment on above: Performed By: #### L IPID, LIVER #### [facility] [address] [place] [address] Dr. Rj Miller LIVER PROFILEon 02-11-2023 Albumin [Mass/Vol] 3.7 g/dL Normal 3.4-5.0 [facility] Comment on above: Performed By: #### L IPID, LIVER #### [facility] [address] [place] [address] Dr. Rj Miller Albumin/Globulin [Mass ratio] 1.0 {ratio} Normal [facility] Comment on above: Performed By: #### L IPID, LIVER #### [facility] [address] [place] [address] Dr. Rj Miller ALP [Catalytic activity/Vol] 210 U/L Critically high 46-116 [facility] Comment on above: Performed By: #### L IPID, LIVER #### [facility] [address] [place] [address] Dr. Rj Miller ALT [Catalytic activity/Vol] 50 U/L Normal 16-63 [facility] Comment on above: Performed By: #### L IPID, LIVER #### [facility] [address] [place] [address] Dr. Rj Miller AST [Catalytic activity/Vol] 42 U/L Critically high 15-37 [facility] Comment on above: Performed By: #### L IPID, LIVER #### [facility] [address] [place] [address] Dr. Rj Miller BILI, CONJUGATED 0.1 mg/dL Normal 0.0-0.2 [facility] Comment on above: Performed By: #### L IPID, LIVER #### [facility] [address] [place] [address] Dr. Rj Miller Bilirubin [Mass/Vol] 0.3 mg/dL Normal 0.2-1.0 [facility] Comment on above: Performed By: #### L IPID, LIVER #### [facility] [address] [place] [address] Dr. Rj Miller Globulin (S) [Mass/Vol] 3.7 g/dL Normal [facility] Comment on above: Performed By: #### L IPID, LIVER #### [facility] [address] [place] [address] Dr. Rj Miller Protein [Mass/Vol] 7.4 g/dL Normal 6.4-8.2 [facility] Comment on above: Performed By: #### L IPID, LIVER #### [facility] [address] [place] [address] Dr. Rj Miller 25-hydroxyvitamin D3 [Mass/V ol]on 01-14-2023 Vitamin D 25 OH 40.2 ng/mL 30 - 100 ng/mL [facility] MRI LSPINE WO CONon 11-24-19 23 MRI [...] complex. 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 Rj Miller Basophils/100 WBC (Bld) 0.5 % Normal 0.2-2.0 [facility] Comment on above: Performed By: #### C BC #### [facility] [address] [address] [address] Rj Miller EO # 0.2 103/ul Normal 0.0-0.7 [facility] Comment on above: Performed By: #### C BC #### [facility] [address] [address] [address] Rj Miller Eosinophils/100 WBC (Bld) 1.8 % Normal 0.9-7.0 [facility] Comment on above: Performed By: #### C BC #### [facility] [address] [address] [address] Rj Miller Erythrocyte distribution width (RBC) [Ratio] 13.6 % Normal 11.0-15.0 [facility] Comment on above: Performed By: #### C BC #### [facility] [address] [address] [address] Rj Miller Hematocrit (Bld) [Volume fraction] 41.3 % Critically low 42.0-54.0 [facility] Comment on above: Performed By: #### C BC #### [facility] [address] [place] [address] Dr. Rj Miller Hemoglobin (Bld) [Mass/Vol] 14.1 g/dL Normal 14.0-18.0 [facility] Comment on above: Performed By: #### C BC #### [facility] [address] [place] [address] Dr. Rj Miller IG # 0.02 10e3/ul Normal 0.00-0.03 [facility] Comment on above: Performed By: #### C BC #### [facility] [address] [place] [address] Dr. Rj Miller IG % 0.2 % Normal 0.0-0.5 [facility] Comment on above: Performed By: #### C BC #### [facility] [address] [place] [address] Dr. Rj Miller LYMPH # 2.4 103/ul Normal 1.2-3.8 [facility] Comment on above: Performed By: #### C BC #### [facility] [address] [place] [address] Dr. Rj Miller Lymphocytes/100 WBC (Bld) 29.5 % Normal 20.5-60.0 [facility] Comment on above: Performed By: #### C BC #### [facility] [address] [place] [address] Dr. Rj Miller MANUAL DIFF REQ NO Normal [facility] Comment on above: Performed By: #### C BC #### [facility] [address] [place] [address] Dr. Rj Miller MCH (RBC) [Entitic mass] 31.1 pg Normal 25.9-34.0 [facility] Comment on above: Performed By: #### C BC #### [facility] [address] [place] [address] Dr. Rj Miller MCHC (RBC) [Mass/Vol] 34.1 g/dL Normal 29.9-35.2 [facility] Comment on above: Performed By: #### C BC #### [facility] [address] [place] [address] Dr. Rj Miller MCV (RBC) [Entitic vol] 91.0 fL Normal 80.0-94.0 [facility] Comment on above: Performed By: #### C BC #### [facility] [address] [place] [address] Dr. Rj Miller MONO # 0.7 103/ul Normal 0.3-0.8 [facility] Comment on above: Performed By: #### C BC #### [facility] [address] [place] [address] Dr. Rj Miller Monocytes/100 WBC (Bld) 8.3 % Normal 1.7-12.0 [facility] Comment on above: Performed By: #### C BC #### [facility] [address] [place] [address] Dr. Rj Miller NEUT # 4.9 103/ul Normal 1.4-6.5 [facility] Comment on above: Performed By: #### C BC #### [facility] [address] [place] [address] Dr. Rj Miller Neutrophils/100 WBC (Bld) 59.7 % Normal 43.0-75.0 [facility] Comment on above: Performed By: #### C BC #### [facility] [address] [place] [address] Dr. Rj Miller Platelet mean volume (Bld) [Entitic vol] 8.8 fL Critically low 9.5-13.5 [facility] Comment on above: Performed By: #### C BC #### [facility] [address] [place] [address] Dr. Rj Miller PLT 288 103/ul Normal 150-450 [facility] Comment on above: Performed By: #### C BC #### [facility] [address] [place] [address] Dr. Rj Miller RBC 4.54 106/ul Critically low 4.70-6.10 [facility] Comment on above: Performed By: #### C BC #### [facility] [address] [place] [address] Dr. Rj Miller WBC 8.2 103/ul Normal 4.0-11.0 [facility] Comment on above: Performed By: #### C BC #### [facility] [address] [place] [address] Dr. Rj Miller Covid-19 PCR (CVDTB)on SARS-CoV-2 (COVID-19) RNA BERNARDO+probe Ql (Unsp spec) Not detected Normal NOT DETECTED [facility] Comment on above: Result Comment: When diagnostic [...] for this test is supported by the H[employer] Instructor of Health and Human Service's declaration that [...] used). Performed By: #### C VDTBH #### [facility] [address] [place] [address] Dr. Rj Miller LIPASEon 09-24-2022 Lipase [Catalytic activity/Vol] 17.0 U/L Critically low 73.0-393.0 [facility] Comment on above: Performed By: #### C MP, LIPA, HSTROPN #### [facility] [address] [place] [address] Dr. Rj Miller PROF 14(COMP METB)on 022 Albumin [Mass/Vol] 3.8 g/dL Normal 3.4-5.0 [facility] Comment on above: Performed By: #### C MP, LIPA, HSTROPN #### [facility] [address] [place] [address] Dr. Rj Miller Albumin/Globulin [Mass ratio] 1.0 {ratio} Normal [facility] Comment on above: Performed By: #### C MP, LIPA, HSTROPN #### [facility] [address] [place] [address] Dr. Rj Miller ALP [Catalytic activity/Vol] 180 U/L Critically high 46-116 [facility] Comment on above: Performed By: #### C MP, LIPA, HSTROPN #### [facility] [address] [place] [address] Dr. Rj Miller ALT [Catalytic activity/Vol] 38 U/L Normal 16-63 [facility] Comment on above: Performed By: #### C MP, LIPA, HSTROPN #### [facility] [address] [place] [address] Dr. Rj Miller Anion gap [Moles/Vol] 8.7 mmol/L Normal [facility] Comment on above: Performed By: #### C MP, LIPA, HSTROPN #### [facility] [address] [place] [address] Dr. Rj Miller AST [Catalytic activity/Vol] 28 U/L Normal 15-37 [facility] Comment on above: Performed By: #### C MP, LIPA, HSTROPN #### [facility] [address] [place] [address] Dr. Rj Miller Bilirubin [Mass/Vol] 0.4 mg/dL Normal 0.2-1.0 [facility] Comment on above: Performed By: #### C MP, LIPA, HSTROPN #### [facility] [address] [place] [address] Dr. Rj Miller Calcium [Mass/Vol] 8.9 mg/dL Normal 8.5-10.1 [facility] Comment on above: Performed By: #### C MP, LIPA, HSTROPN #### [facility] [address] [place] [address] Dr. Rj Miller Chloride [Moles/Vol] 103 mmol/L Normal 98-107 [facility] Comment on above: Performed By: #### C MP, LIPA, HSTROPN #### [facility] [address] [place] [address] Dr. Rj Miller CO2 [Moles/Vol] 26.0 mmol/L Normal 21.0-32.0 [facility] Comment on above: Performed By: #### C MP, LIPA, HSTROPN #### [facility] [address] [place] [address] Dr. Rj Miller Creatinine [Mass/Vol] 0.88 mg/dL Normal 0.70-1.30 [facility] Comment on above: Performed By: #### C MP, LIPA, HSTROPN #### [facility] [address] [place] [address] Dr. Rj Miller EGFR-AF BANGLADESHI >60 Normal >=60 [facility] Comment on above: Performed By: #### C MP, LIPA, HSTROPN #### [facility] [address] [place] [address] Dr. Rj Miller EGFR-NON AF BANGLADESHI >60 Normal >=60 [facility] Comment on above: Performed By: #### C MP, LIPA, HSTROPN #### [facility] [address] [place] [address] Dr. Rj Miller Globulin (S) [Mass/Vol] 3.8 g/dL Normal [facility] Comment on above: Performed By: #### C MP, LIPA, HSTROPN #### [facility] [address] [place] [address] Dr. Rj Miller Glucose [Mass/Vol] 116 mg/dL Critically high 74-106 [facility] Comment on above: Performed By: #### C MP, LIPA, HSTROPN #### [facility] [address] [place] [address] Dr. Rj Miller Potassium [Moles/Vol] 3.7 mmol/L Normal 3.5-5.1 [facility] Comment on above: Performed By: #### C MP, LIPA, HSTROPN #### [facility] [address] [place] [address] Dr. Rj Miller Protein [Mass/Vol] 7.6 g/dL Normal 6.4-8.2 [facility] Comment on above: Performed By: #### C MP, LIPA, HSTROPN #### [facility] [address] [address] [address] Rj Miller Sodium [Moles/Vol] 134 mmol/L Critically low 136-145 [facility] Comment on above: Performed By: #### C MP, LIPA, HSTROPN #### [facility] [address] [address] [address] Rj Miller Urea nitrogen [Mass/Vol] 13.0 mg/dL Normal 7.0-18.0 [facility] Comment on above: Performed By: #### C MP, LIPA, HSTROPN #### [facility] [address] [place] [address] Dr. Rj Miller Urea nitrogen/Creatinine [Mass ratio] 14.8 mg/mg Normal [facility] Comment on above: Performed By: #### C MP, LIPA, HSTROPN #### [facility] [address] [address] [address] Rj Miller TROPONIN, HIGH SENSITIVITYon 09-24-2022 HSTROP 10.1 pg/mL Normal 4.0-76.1 [facility] Comment on above: Result Comment: CUT- OFF POINTS HAVE BEEN ESTABLISHED BASED ON THE FOURTH UNIVERSAL DEFINITIONS OF MYOCARDIAL INFARCTION. THE UPPER REFERENCE LIMIT (URL) OF TROPONIN, DEFINED THE 99TH PERCENTILE OF cTnI DISTRIBUTION IN A REFERENCE POPULATION, HAS BEEN CONFIRMED THE DECISION THRESHOLD FOR [place] DIAGNOSIS. Performed By: #### C MP, LIPA, HSTROPN #### [facility] [address] [address] [address] Rj Miller XR CSPINE 2_3 VIEWSon [...] JENNY TAPIA Date: 2022-09-24 07:20 Normal [facility] Basic Metabolic Panelon - Calcium [Mass/Vol] 8.7 mg/dL Normal 8.2-10.2 [facility] Comment on above: Performed By: #### B MP #### [address] Chloride [Moles/Vol] 107 mmol/L Normal 95-114 [facility] Comment on above: Performed By: #### B MP #### [address] CO2 [Moles/Vol] 23.3 mmol/L Normal 22.0-30.0 [facility] Comment on above: Performed By: #### B MP #### [address] Creatinine [Mass/Vol] 0.80 mg/dL Normal 0.64-1.27 [facility] Comment on above: Performed By: #### B MP #### [address] Creatinine Clr Calc Pharmacy 101.34 [facility] Comment on above: Result Comment: PERF ORMED BY: [place] [id number] PATHOLOGIST BROODMARE BARN GROOM MARGO MINOR M.D. Performed By: #### B MP #### [address] Estimated GFR ( David > 60 Normal [facility] Comment on above: Result Comment: GFR estimated reference range: According to KDOQI guidelines, <60 ml/min/1.73m2 is sufficient to diagnose a patient with chronic kidney disease. Performed By: #### B MP #### [address] Estimated GFR (Non- Am > 60 Normal [facility] Comment on above: Performed By: #### B MP #### [facility] [address] Glucose [Mass/Vol] 101 mg/dL High 70-100 [facility] Comment on above: Result Comment: [place] Glucose Reference Range is dependent on time and content of last meal. Glucose of more than 200 mg/dL in a nonstressed, ambulatory subject supports the diagnosis of Diabetes Mellitus. ADA recommended reference range Performed By: #### B MP #### [facility] [address] Potassium [Moles/Vol] 4.3 mmol/L Normal 3.5-5.1 [facility] Comment on above: Performed By: #### B MP #### [facility] [address] Sodium [Moles/Vol] 138 mmol/L Normal 136-146 [facility] Comment on above: Performed By: #### B MP #### [facility] [address] Urea nitrogen [Mass/Vol] 13 mg/dL Normal 9-23 [facility] Comment on above: Performed By: #### B MP #### [facility] [address] [place] [address] [place] Calculi, Urinaryon 1 Ca Oxalate Dihydrate 60 % Normal . [facility] Comment on above: Performed By: #### C ALCULI #### [facility] , Ca Oxalate Monohydrate 30 % Normal . [facility] Comment on above: Performed By: #### C ALCULI #### [facility] , Color (U) Moy Normal . [facility] Comment on above: Performed By: #### C ALCULI #### [facility] , Comment: Normal . [facility] Comment on above: Result Comment: Phys chao questions regarding Calculi Analysis contact [facility] at: [phone]. Performed By: #### C ALCULI #### [facility] , Composition Normal . [facility] Comment on above: Result Comment: Perc entage (Represents the % composition) Performed By: #### C ALCULI #### [facility] , Disclaimer: Normal . [facility] Comment on above: Result Comment: This test was developed and its performance characteristics determined by [facility]. It has not been cleared or approved by the Food and Drug Administration. Performed at: [facility] [address] [place] [address] Dr Castillo, [place], [place] [id number] Senior Production Supervisor: Anthony Grey MD, Phone: [phone] Performed By: #### C ALCULI #### [facility] , Hydroxyapatite 10 % Normal . [facility] Comment on above: Performed By: #### C ALCULI #### [facility] , Note Normal . [facility] Comment on above: Result Comment: Calc josafat report will follow via computer, mail or chemical recovery operator delivery. PERFORMED BY: [facility] [address] [place] [address] PATHOLOGIST BROODMARE BARN GROOM MARGO MINOR M.D. Performed By: #### C ALCULI #### [facility] , Photo Normal . [facility] Comment on above: Result Comment: Phot ograph will follow under a separate cover Performed By: #### C ALCULI #### [facility] , Size 6x6 Normal . [facility] Comment on above: Result Comment: Mult iple pieces received. Dimensions of the largest piece reported. Performed By: #### C ALCULI #### [facility] , Source Ureter Normal . [facility] Comment on above: Performed By: #### C ALCULI #### [facility] , Weight 110 Normal . [facility] Comment on above: Performed By: #### C ALCULI #### [facility] , ECG 12 lead ECGon 02-27-2021 ECG 12 lead ECG [facility] [place] [address] Electrocardiograph Report Signed Patient: Jam Toscano MR#: [id number] : 1965 Acct:[id number] Age/Sex: 55 / M ADM Date: 02/27/21 Loc: [place] Room: Type: [facility] Attending Dr: Rigo Gonzalez Jr, MD Ordering [...] MUS Dictated By: Ta Ruby DO 02/27/21 1110 Signed By: 02/27/21 1225 [facility] Mikey 02-27-2021 L ----- Specimen: [id number] Received: 02/27/21 Status: EMELI Flores Num: [id number] Spec Type: Surgical Subm Dr: Rigo Gonzalez Jr, MD, FACS Tissues: A Urinary Calculus (URETHRAL STONE) Procedures: Level 1 Gross Patient Age/Sex Location Account Attending Physician Jam Toscano 55/M [place] [id number] Rigo Gonzalez Jr, MD, FACS SPEC NUM: [id number] RECD: 02/27/21 STATUS: EMELI FLORES NUM: [id number] RADHA: 02/27/21- DR: Rigo Gonzalez Jr, MD, FACS ENTERED: 02/27/21-[address]: LATOYA TYPE: Surgical DEPT: S [...] The specimen is sent for stone analysis. (GENEVIEVE/JACLYN) Microscopic Description Gross examination only CPT Codes 19281 Specimen: [id number] Received: 02/27/21 Status: EMELI Flores Num: [id number] Spec Type: Surgical Subm Dr: Rigo Gonzalez Jr, MD, FACS Tissues: A Urinary Calculus (URETHRAL STONE) Procedures: Level 1 Gross Patient: Jam Toscano [id number] (Continued) Signed (signature on file) Silvestre Poon MD 02/28/21 3944 [facility] COVID-19 FRon 02-25-2021 SARS-CoV-2 (COVID-19) RNA BERNARDO+probe Ql (Unsp spec) Negative Normal Negative [facility] Comment on above: Order Comment: Healt hcare Worker?: N Result Comment: Ganesh earl: Negative Testing for SARS-CoV-2 by RT-PCR This test was developed and its performance characteristics determined by Kat[employer] ([place]) and validated at the [facility]. This test has not been FDA [...] is terminated or revoked sooner. PERFORMED BY: [place] [id number] PATHOLOGIST BROODMARE BARN GROOM MARGO MINOR M.D. Performed By: #### C OVID-19 [facility] #### [address] COVID-19 Positive/Negativeon 02-25-2021 COVID-19 Positive/Negative Negative Negative [facility] Comment on above: Reference: NegativeT esting for SARS-CoV-2 by RT-PCRThis test was developed and its performance characteristics determined by Kat, [employer] ([place]) and validated at the [facility]. This test has not been FDA [...] terminated or revoked sooner. Otheron 02-25-2021 Coronavirus 2018 PCR Interp N/A [facility] XR ANKLE GENERAL 3V AP/LAT/O BL LTon 02-20-2021 [facility] DXA-AXIAL SKELETONon [facility] Vital Signs Date Time Vital Sign Value Performing Clinician Lucy litparmjit 10-05-2024 07:15-0500 Body mass index (BMI) [Ratio] 27.66 kg/m2 Darrian Dubon MD Work Phone: [facility] 10-05-2024 07:15-0500 Body weight 77.7 kg Darrian Dubon MD Work Phone: [facility] 10-05-2024 07:15-0500 Diastolic blood pressure 76 mm[Hg] Darrian Dubon MD Work Phone: [facility] 10-05-2024 07:15-0500 Heart rate 66 /min Darrian Dubon MD Work Phone: [facility] 10-05-2024 07:15-0500 Systolic blood pressure 128 mm[Hg] Darrian Dubon MD Work Phone: [facility] 05-09-2024 10:05-0400 Diastolic blood pressure 78 mm[Hg] Geoffrey Pretty Work Phone: [facility] 05-09-2024 10:05-0400 Heart rate 78 /min Rheu Maria De Jesus Work Phone: [facility] 05-09-2024 10:05-0400 Systolic blood pressure 121 mm[Hg] Rheu Maria De Jesus Work Phone: [facility] 05-09-2024 09:08-0400 Body mass index (BMI) [Ratio] 27.16 kg/m2 Nidia Weston APRN.CNP Work Phone: [facility] 05-09-2024 09:08-0400 Body temperature 98.4 [degF] Nidia Weston APRN.CNP Work Phone: [facility] 05-09-2024 09:08-0400 Body weight 76.3 kg Nidia Weston APRN.AUTOMOTIVE PARTS CLERK Work Phone: [facility] 05-09-2024 09:08-0400 Diastolic blood pressure 79 mm[Hg] Nidia Weston APRN.AUTOMOTIVE PARTS CLERK Work Phone: [facility] 05-09-2024 09:08-0400 Heart rate 89 /min Nidia Weston APRN.AUTOMOTIVE PARTS CLERK Work Phone: [facility] 05-09-2024 09:08-0400 SaO2% (BldA) [Mass fraction] 97 % Nidia Weston APRN.AUTOMOTIVE PARTS CLERK Work Phone: [facility] 05-09-2024 09:08-0400 Systolic blood pressure 118 mm[Hg] Nidia Weston APRN.AUTOMOTIVE PARTS CLERK Work Phone: [facility] 03-14-2024 09:17-0400 Body mass index (BMI) [Ratio] 26.66 kg/m2 Nidia Weston APRN.AUTOMOTIVE PARTS CLERK Work Phone: [facility] 03-14-2024 09:17-0400 Body weight 74.9 kg Nidia Weston APRN.AUTOMOTIVE PARTS CLERK Work Phone: [facility] 03-14-2024 09:17-0400 Diastolic blood pressure 83 mm[Hg] Nidia Weston APRN.AUTOMOTIVE PARTS CLERK Work Phone: [facility] 03-14-2024 09:17-0400 Heart rate 97 /min Nidia Weston APRN.AUTOMOTIVE PARTS CLERK Work Phone: [facility] 03-14-2024 09:17-0400 SaO2% (BldA) [Mass fraction] 97 % Nidia Weston APRN.AUTOMOTIVE PARTS CLERK Work Phone: [facility] 03-14-2024 09:17-0400 Systolic blood pressure 121 mm[Hg] Nidia Weston APRN.AUTOMOTIVE PARTS CLERK Work Phone: [facility] Encounters Encounter Date Encounter Type Care Provider Facility Start: 05-22-2025 ambulatory Salmon Talal Sarmini Facility:[facility] Start: 12-14-2024 End: 12-14-2024 ambulatory Salmon Talal Fredomini Facility:[facility] Start: 11-21-2024 End: 11-23-2024 Telephone encounter Darrian Dubon MD Work Phone: Rheumatology Comment on above: Patient Update Start: 11-21-2024 End: 11-21-2024 ambulatory Marcin RAMÍREZ Facility:[facility] Start: 11-21-2024 End: 11-21-2024 ambulatory Marcin RAMÍREZ Facility: [place] Start: 10-05-2024 End: 10-05-2024 ambulatory JOSE L LACKEY Facility:[facility] Start: 10-05-2024 End: 10-05-2024 Office outpatient visit [...] prevention Start: 06-13-2024 End: 06-13-2024 ambulatory Salmon Gonzálezal Fredomini Facility:[facility] Start: 06-03-2024 End: 06-03-2024 ambulatory Luis Antonio Talal Fredomini Facility:[facility] Start: 05-30-2024 End: 05-30-2024 ambulatory Salmon Talal Fredomini Facility:[facility] Start: 05-09-2024 End: 05-09-2024 ambulatory [place] Chair 2 Maria De Jesus Work Phone: Infusion Comment on above: Other osteoporosis w ithout current pathological fracture (Primary Dx) Start: 05-09-2024 End: 05-09-2024 Patient encounter procedure Nidia Weston APRN.CNP Work Phone: Rheumatology Comment on above: 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); Vitamin D deficiency; Other osteoporosis without current pathological fracture Start: 05-03-2024 Telephone encounter Ben slater MD Work Phone: Rheumatology Comment on above: Results (Labs) Start: 05-03-2024 End: 05-03-2024 ambulatory DAMION MABRY Not Available Start: 04-11-2024 Telephone encounter Nidia retana APRN.CNP Work Phone: Rheumatology Comment on above: Patient Update Start: 04-05-2024 End: 04-05-2024 ambulatory DAMION Ren CLOTILDE Not Available Start: 03-14-2024 End: 03-14-2024 Subsequent hospital visit by physician Xr [facility] Comment on above: Rheumatoid arthritis 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) [M05.79] Start: 03-14-2024 End: 03-14-2024 ambulatory NIDIA WESTON Facility:[facility] Start: 03-14-2024 End: 03-14-2024 Patient encounter procedure Nidia Weston APRN.AUTOMOTIVE PARTS CLERK Work Phone: Rheumatology Comment on above: 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); Vitamin D deficiency; Other osteoporosis without current pathological fracture; Encounter for medication review and counseling Start: 03-04-2024 End: 03-04-2024 ambulatory Salmon Talal Sarmini Facility:[facility] Start: 03-02-2024 End: 03-02-2024 ambulatory Salmon Talal Sarmini Facility:[facility] Start: 02-26-2024 End: 02-26-2024 ambulatory Salmon Talal Sarmini Facility:[facility] Start: 02-11-2024 Telephone encounter Nidia retana APRN.AUTOMOTIVE PARTS CLERK Work Phone: Rheumatology Start: 01-12-2024 End: 01-12-2024 ambulatory JOSE L M HOY Facility:[facility] Start: 01-12-2024 End: 01-12-2024 ambulatory JOSE L M HOY Facility:[facility] Start: 12-11-2023 End: 12-11-2023 ambulatory Salmon Talal Sarmini Facility:[facility] Start: 12-01-2023 End: 12-01-2023 ambulatory JOSE L M HOY Facility:[facility] Start: 12-01-2023 End: 12-01-2023 ambulatory JOSE L LACKEY Facility:[facility] Start: 11-27-2023 End: 11-27-2023 Emergency department patient visit Kavon Johnson Facility:[facility] Start: 11-04-2023 End: 11-04-2023 Emergency department patient visit Kavon Johnson Facility:[facility] Start: 10-23-2023 End: 10-23-2023 Emergency department patient visit Zoila Shirleybubba Facility:[facility] Start: 05-04-2023 Telephone encounter Nidia retana APRN.AUTOMOTIVE PARTS CLERK Work Phone: Rheumatology Comment on above: Patient Update Start: 05-04-2023 End: 05-04-2023 ambulatory Nidia Weston APRN.AUTOMOTIVE PARTS CLERK Work Phone: Rheumatology Comment on above: Rheumatoid [...] End: 05-04-2023 Telemedicine consultation with patient Nidia Weston APRN.AUTOMOTIVE PARTS CLERK Work Phone: [facility] Start: 03-02-2023 End: 03-02-2023 ambulatory Nidia Weston APRN.AUTOMOTIVE PARTS CLERK Work Phone: Rheumatology Comment on above: 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); Encounter to discuss test results; Counseling on health promotion and disease prevention; Ulcerative pancolitis (HCC); Other osteoporosis without current pathological fracture Start: 03-02-2023 End: 03-02-2023 Telemedicine consultation with patient Nidia Weston APRN.AUTOMOTIVE PARTS CLERK Work Phone: [facility] Start: 02-11-2023 End: 02-12-[address] JOSE L LACKEY . Facility: Start: 01-14-2023 Telephone encounter Nidia retana APRN.AUTOMOTIVE PARTS CLERK Work Phone: Rheumatology Comment on above: Outside Lab Results (Vit D ) Start: 12-29-2022 End: 12-29-2022 ambulatory Nidia Weston APRN.AUTOMOTIVE PARTS CLERK Work Phone: Rheumatology Comment on above: 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); Vitamin D deficiency; Encounter to discuss test results; Encounter for medication review and counseling; Counseling on health promotion and disease prevention; Other osteoporosis without current pathological fracture Start: 12-29-2022 End: 12-29-2022 Telemedicine consultation with patient Nidia Villalobos Enrico MOSERAUTOMOTIVE PARTS CLERK Work Phone: [facility] Start: 11-24-2022 End: 11-25-[address] JOSE L LACKEY . Facility:[facility] Start: 11-06-2022 End: 11-07-[address] JOSE L LACKEY . Facility:[facility] Start: 09-24-2022 End: 09-24-[address] JOSE L LACKEY . Facility:[facility] Start: 09-23-2022 End: 09-23-2022 Subsequent hospital visit by physician Bone Density [facility] Comment on above: Other osteoporosis w ithout current pathological fracture [M81.8] Start: 02-10-2022 Telephone encounter Darrian Florez MD Work Phone: Rheumatology Comment on above: Results Start: 02-25-2021 End: 02-25-2021 Patient encounter procedure Rigo Gonzalez -Pre-Surgical Testing Start: 02-20-2021 End: 02-20-2021 Subsequent hospital visit by physician Xr [facility] Comment on above: Seropositive rheumat oid arthritis (HCC) [M05.9] Start: 08-22-2020 End: 08-22-2020 Subsequent hospital visit by physician Bone Density [facility] Comment on above: Rheumatoid arthritis 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) [M05.79] Procedures Date Procedure Procedure Detail Performing Clinician Start: 03-14-2024 Radex hand minimum 3 views Nidia Weston APRN.AUTOMOTIVE PARTS CLERK Work Phone: Start: 01-12-2023 VITAMIN D 25 HYDROXY Am parmjit Weston APRN.AUTOMOTIVE PARTS CLERK Work Phone: Start: 09-23-2022 Dxa bone density [...] Author Start: 12-01-2026 Diabetes Screening Diabetes Screenin anjali [facility] Start: 06-06-2025 End: 06-06-2025 Patient encounter procedure Radiology Comment on above: Seropositive rheumat oid arthritis (HCC) [M05.9] Return for May 2025 for RA and OP and review of DXA. Start: 05-23-2025 End: 05-23-2025 ambulatory 05/23/2025 8:00 AM EDT Results Only [facility] [address] [place] [address] [place] [address] labs [facility] Comment on above: labs Start: 05-16-2025 End: 08-15-2025 25-hydroxyvitamin D3 [Mass/volume] in Serum or Plasma VITAMIN D 25 HYDROXY Lab Routine Seropositive rheumatoid arthritis (HCC) Ulcerative pancolitis (HCC) Other osteoporosis without current pathological fracture History of bisphosphonate therapy Expected: 05/16/2025, Expires: 08/15/2025 [facility] Comment on above: Expected: 05/16/2025 , Expires: 08/15/2025 Start: 05-16-2025 End: 08-15-2025 C reactive protein [Mass/volume] in Serum or Plasma C-REACTIVE PROTEIN Lab Routine Seropositive rheumatoid arthritis (HCC) Ulcerative pancolitis (HCC) Expected: 05/16/2025, Expires: 08/15/2025 [facility] Comment on above: Expected: 05/16/2025 , Expires: 08/15/2025 Start: 05-16-2025 End: 08-15-2025 CBC W Auto Differential panel - Blood COMPLETE BLOOD COUNT AND DIFFERENTIAL Lab Routine Seropositive rheumatoid arthritis (HCC) Rheumatoid arthritis 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) On sulfasalazine therapy Ulcerative pancolitis (HCC) Expected: 05/16/2025, Expires: 08/15/2025 [facility] Work Phone: Comment on above: Expected: 05/16/2025 , Expires: 08/15/2025 Start: 05-16-2025 End: 08-15-2025 Collagen crosslinked C-telopeptide [Mass/volume] in Serum or Plasma C TELOPEPTIDE, BETA Lab Routine Other osteoporosis without current pathological fracture History of bisphosphonate therapy Expected: 05/16/2025, Expires: 08/15/2025 [facility] Comment on above: Expected: 05/16/2025 , Expires: 08/15/2025 Start: 05-16-2025 End: 08-15-2025 Renal function 2000 panel - Serum or Plasma RENAL FUNCTION PANEL Lab Routine Other osteoporosis without current pathological fracture History of bisphosphonate therapy Expected: 05/16/2025, Expires: 08/15/2025 [facility] Comment on above: Expected: 05/16/2025 , Expires: 08/15/2025 Start: 02-14-2025 End: 02-14-2025 Patient encounter procedure 02/14/2025 7:20 AM EDT Office Visit Rheumatology [address] [place] [address] Darrian Dubon MD [address] [facility] [place] [address] Dubon Rheumatology Comment on above: future with dr. Vince melton Start: 10-05-2024 End: 10-05-2024 Patient encounter procedure 10/05/2024 7:20 AM EST Office Visit Rheumatology [address] [place] [address] Darrian Dubon MD [address] [place] [address] RA Rheumatology Comment on above: RA Start: 09-16-2024 End: 12-16-2024 25-hydroxyvitamin D3 [Mass/volume] in Serum or Plasma VITAMIN D 25 HYDROXY Lab Routine Vitamin D deficiency Other osteoporosis without current pathological fracture Expected: 09/16/2024 (Approximate), Expires: 12/16/2024 [facility] Comment on above: Expected: 09/16/2024 (Approximate), Expires: 12/16/2024 Start: 09-16-2024 End: 12-16-2024 C reactive protein [Mass/volume] in Serum or Plasma C-REACTIVE PROTEIN Lab Routine Rheumatoid arthritis 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) Expected: 09/16/2024 (Approximate), Expires: 12/16/2024 [facility] Work Phone: Comment on above: Expected: 09/16/2024 (Approximate), Expires: 12/16/2024 Start: 09-16-2024 End: 12-16-2024 Erythrocyte sedimentation rate SEDIMENTATION RATE, WESTERGREN Lab Routine Rheumatoid arthritis 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) Expected: 09/16/2024 (Approximate), Expires: 12/16/2024 [facility] Comment on above: Expected: 09/16/2024 (Approximate), Expires: 12/16/2024 Start: 09-16-2024 End: 12-16-2024 Renal function 2000 panel - Serum or Plasma RENAL FUNCTION PANEL Lab Routine Rheumatoid arthritis 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) Other osteoporosis without current pathological fracture Expected: 09/16/2024 (Approximate), Expires: 12/16/2024 [facility] Comment on above: Expected: 09/16/2024 (Approximate), Expires: 12/16/2024 Start: 07-17-2024 Influenza vaccination [facility] Start: 05-09-2024 End: 05-09-2024 ambulatory 05/09/2024 9:30 AM EDT Infusion [facility] [address] [place] [address] Return labs in 1 month, for reclast and ov in 1-2 months after labs Infusion Comment on above: Return labs in 1 thu, for reclast and ov in 1-2 months after labs Start: 05-09-2024 End: 05-09-2024 Patient encounter procedure 05/09/2024 9:00 AM EDT Office Visit Rheumatology [address] [facility] [place] [address] Nidia Weston, [employer].AUTOMOTIVE PARTS CLERK [address] [facility] [place] [address] Return labs in 1 month, for reclast and ov in 1-2 months after labs Rheumatology Comment on above: Return labs in 1 thu, for reclast and ov in 1-2 months after labs Start: 2024 RSV Vaccine (1 - 1-d ose 60+ series) RSV Vaccine (1 - 1-dose 60+ series) [facility] Start: 2024 RSV Vaccine (1 - Ris k 60-74 years 1-dose series) RSV Vaccine (1 - Risk 60-74 years 1-dose series) [facility] Start: 04-13-2024 End: 07-13-2024 25-hydroxyvitamin D3 [Mass/volume] in Serum or Plasma VITAMIN D 25 HYDROXY Lab Routine Rheumatoid arthritis 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) Vitamin D deficiency Expected: 04/13/2024 (Approximate), Expires: 07/13/2024 [facility] Comment on above: Expected: 04/13/2024 (Approximate), Expires: 07/13/2024 Start: 04-13-2024 End: 07-13-2024 C reactive protein [Mass/volume] in Serum or Plasma C-REACTIVE PROTEIN Lab Routine Rheumatoid arthritis 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) Expected: 04/13/2024 (Approximate), Expires: 07/13/2024 [facility] Comment on above: Expected: 04/13/2024 (Approximate), Expires: 07/13/2024 Start: 04-13-2024 End: 07-13-2024 Erythrocyte sedimentation rate SEDIMENTATION RATE, WESTERGREN Lab Routine Rheumatoid arthritis 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) Expected: 04/13/2024 (Approximate), Expires: 07/13/2024 [facility] Comment on above: Expected: 04/13/2024 (Approximate), Expires: 07/13/2024 Start: 04-13-2024 End: 07-13-2024 Renal function 2000 panel - Serum or Plasma RENAL FUNCTION PANEL Lab Routine Rheumatoid arthritis 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) Expected: 04/13/2024 (Approximate), Expires: 07/13/2024 [facility] Work Phone: Comment on above: Expected: 04/13/2024 (Approximate), Expires: 07/13/2024 Start: 04-13-2024 End: 04-13-2025 XR Hand - bilateral PA and Lateral and Oblique XR HAND GENERAL 3V PA/LAT/OBL BILATERAL Radiology Routine Rheumatoid arthritis 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) Expected: 04/13/2024 (Approximate), Expires: 04/13/2025 [facility] Comment on above: Expected: 04/13/2024 (Approximate), Expires: 04/13/2025 Start: 11-16-2023 Behavioral Health Screening Behavioral Health Screening [facility] Start: 11-16-2023 Depression Assessment Depression Ass essment [facility] Start: 08-22-2023 DIABETES SCREEN DIABETES SCREEN [facility] Start: 07-17-2023 Influenza vaccination [facility] Start: 07-04-2023 End: 09-03-2023 25-hydroxyvitamin D3 [Mass/volume] in Serum or Plasma VITAMIN D 25 HYDROXY Lab Routine Other osteoporosis without current pathological fracture Expected: 07/04/2023 (Approximate), Expires: 09/03/2023 [facility] Work Phone: Comment on above: Expected: 07/04/2023 (Approximate), Expires: 09/03/2023 Start: 07-04-2023 End: 09-03-2023 MONOCLONAL PROT UR W/INTERP MONOCLONAL PROT UR W/INTERP Lab Routine Elevated serum immunoglobulin free light chain level Expected: 07/04/2023 (Approximate), Expires: 09/03/2023 [facility] Work Phone: Comment on above: Expected: 07/04/2023 (Approximate), Expires: 09/03/2023 Start: 07-04-2023 End: 09-03-2023 Renal function 2000 panel - Serum or Plasma RENAL FUNCTION PANEL Lab Routine Other osteoporosis without current pathological fracture Expected: 07/04/2023 (Approximate), Expires: 09/03/2023 [facility] Work Phone: Comment on above: Expected: 07/04/2023 (Approximate), Expires: 09/03/2023 Start: 12-29-2022 End: 02-28-2023 25-hydroxyvitamin D3 [Mass/volume] in Serum or Plasma VITAMIN D 25 HYDROXY Lab Routine Vitamin D deficiency Expected: 12/29/2022, Expires: 02/28/2023 [facility] Work Phone: Comment on above: Expected: 12/29/2022 , Expires: 02/28/2023 Start: 11-16-2022 DEPRESSION ASSESSMENT DEPRESSION ASS ESSMENT [facility] Start: 07-17-2022 Influenza vaccination INFLUENZA (#1) [facility] Start: 07-17-2021 Influenza vaccination INFLUENZA (#1) [facility] Start: 04-15-2021 COVID-19 VACCINE (2 - Starr risk 3-dose series) COVID-19 VACCINE (2 - Starr risk 3-dose series) [facility] Start: 04-15-2021 COVID-19 VACCINE (2 - Starr risk series) COVID-19 VACCINE (2 - Starr risk series) [facility] Start: 05-03-2020 PNEUMOCOCCAL (3 - PPSV23 if available, else PCV20) PNEUMOCOCCAL (3 - PPSV23 if available, else PCV20) [facility] Start: 05-03-2020 PNEUMOCOCCAL (3 - PPSV23 or PCV20) PNEUMOCOCCAL (3 - PPSV23 or PCV20) [facility] Start: 05-03-2020 Pneumococcal vaccination Pneumococcal Vaccine (3 of 3 - PPSV23 or PCV20) [facility] Start: 05-03-2020 Pneumococcal Vaccine : 50+ (3 of 3 - PPSV23, PCV20 or PCV21) Pneumococcal Vaccine: 50+ (3 of 3 - PPSV23, PCV20 or PCV21) [facility] Start: 02-11-2020 Adult depression screening assessment DEPRESSION SCREENING [facility] Start: 2019 PROSTATE CANCER SCREENING DISCUSSION PROSTATE CANCER SCREENING DISCUSSION [facility] Start: 2019 Prostate specific antigen measurement Prostate Cancer Screening Discussion [facility] Start: 2014 SHINGRIX VACCINE (1 of 2) SHINGRIX VACCINE (1 of 2) [facility] Start: 2009 COLOGUARD (FIT-DNA) COLOGUARD (FIT-D NA) [facility] Start: 2009 Colonoscopy COLONOSCOPY [facility] Start: 2009 COLORECTAL CANCER SCREENING COLORECTAL CANCER SCREENING [facility] Start: [address] COLONOGRAPHY [facility] Start: 2009 FECAL OCCULT BLOOD FECAL OCCULT BLOO D [facility] Start: 2009 Screening for malign ant neoplasm of colon [facility] Start: 2009 SIGMOIDOSCOPY SIGMOIDOSCOPY [facility] Start: 1999 Lipid panel Lipid Screening [facility] Start: 1999 LIPID SCREEN LIPID SCREEN [facility] Start: 1983 SHINGRIX VACCINE (1 of 2) SHINGRIX VACCINE (1 of 2) [facility] Start: 1983 Urine microalbumin profile [facility] Start: 1982 Anxiety Screening Anxiety Screening [facility] Start: 1982 Depression Screening Depression Scre ening [facility] Start: 1982 HIV SCREENING HIV SCREENING [facility] Start: 1982 HIV screening HIV Screening [facility] Start: 1982 MMR Vaccine (1 of 2 - Risk 2-dose series) MMR Vaccine (1 of 2 - Risk 2-dose series) [facility] Start: 1974 Meningococcal B Vaccine: Consider Based On Risk (1 of 4 - Increased Risk) Meningococcal B Vaccine: Consider Based On Risk (1 of 4 - Increased Risk) [facility] End: 11-04-2025 BD DXA TRABECULAR BONE SCORE (TBS) BD DXA TRABECULAR BONE SCORE (TBS) Radiology Routine Seropositive rheumatoid arthritis (HCC) Ulcerative pancolitis (HCC) Other osteoporosis without current pathological fracture History of bisphosphonate therapy 1 Occurrences starting 10/05/2024 until 11/04/2025 [facility] Comment on above: 1 Occurrences starti ng 10/05/2024 until 11/04/2025 End: 11-04-2025 DXA Skeletal system.axial Views for bone density DXA-AXIAL SKELETON Radiology Routine Seropositive rheumatoid arthritis (HCC) Ulcerative pancolitis (HCC) Other osteoporosis without current pathological fracture History of bisphosphonate therapy 1 Occurrences starting 10/05/2024 until 11/04/2025 [facility] Comment on above: 1 Occurrences starti ng 10/05/2024 until 11/04/2025 [facility] Immunizations Immunization Date Immunization Notes Care Provider Feng diaz 06-09-2022 zoster vaccine recombinant Nidia Enrico [employer]OTIVE [employer] CLERK Work Phone: [facility] 03-17-2022 zoster vaccine recombinant Nidia Enrico [employer].AUTOMOTIVE PARTS CLERK Work Phone: [facility] 09-27-2020 Influenza, injectabl e, Madin [place] Canine Kidney, preservative free, quadrivalent Nidia Enrico [employer].AUTOMOTIVE PARTS CLERK Work Phone: [facility] 09-27-2020 influenza virus vacc ine, unspecified formulation Nidia Weston [employer]AUTOMOTIVE PARTS CLERK Work Phone: [facility] 10-28-2019 Influenza, injectabl e, Madin [place] Canine Kidney, quadrivalent with preservative Darrian Dubon MD Work Phone: [facility] 08-29-2019 influenza, injectabl e, quadrivalent, preservative free Nidia Weston [employer]AUTOMOTIVE PARTS CLERK Work Phone: [facility] 08-15-2016 influenza, injectabl e, quadrivalent, preservative free Darrian Dubon MD Work Phone: [facility] 12-08-2015 hepatitis A and hepa titis B vaccine Darrian Dubon MD Work Phone: [facility] 11-01-2015 pneumococcal conjuga te vaccine, 13 valent Darrian Dubon MD Work Phone: [facility] 07-31-2015 influenza, seasonal, injectable, preservative free Darrian Dubon MD Work Phone: [facility] 05-31-2015 hepatitis A and hepa titis B vaccine Darrian Dubon MD Work Phone: [facility] 05-03-2015 hepatitis A and hepa titis B vaccine Darrian Dubon MD Work Phone: [facility] 05-03-2015 pneumococcal polysaccharide vaccine, 23 valent Darrian SanchezAshkar MD Work Phone: [facility] Payers Date Payer Category Payer Medicare DEVOTED MEDICARE [facility] [id number] 2021-Present [phone] [address] [place] [address] O [id number] 2021 Unknown [id number] 2011 Medicare [id number]. [id number] 1964 Unknown [id number] 2.16.840.1.624824.3.579. 2.593 1964 Unknown [id number] 2.16.840.1.140005.3.579. 2.593 1964 Unknown [id number] 2.16.840.1.114782.3.579. 2.593 1964 Unknown [id number] 2.16.840.1.849401.3.579. 2.593 1964 Unknown [id number] 2.16.840.1.112754.3.579. 2.1259 1964 Unknown [id number] 2.16.840.1.644300.3.579. 2.1259 1964 Unknown [id number] 2.16.840.1.883939.3.579. 2.1259 1964 Unknown [id number] 2.16.840.1.011217.3.579. 2.1259 1964 Unknown [id number] 2.16.840.1.345471.3.579. 2.727 1964 Unknown [id number] 2.16.840.1.809246.3.579. 2.727 1964 Unknown [id number] 2.16.840.1.327652.3.579. 2.727 1964 Unknown [id number] 2.16.840.1.362170.3.579. 2 1964 Unknown [id number] 2.16.840.1.097782.3.579. 2 1964 Unknown [id number] 2.16.840.1.889503.3.579. 2 1964 Unknown [id number] 2.16.840.1.622815.3.579. 2 1964 Unknown [id number] 2.16.840.1.813977.3.579. 2 1964 Unknown [id number] 2.16.840.1.781923.3.579. 1964 Unknown [id number] 2..840.1.629094.3.579. 2 1964 Unknown [id number] 2..840.1.178718.3.579. 2 1964 Unknown [id number] 2.16.840.1.997509.3.579. 2 1964 Unknown [id number] 2.16.840.1.740146.3.579. 2 1964 Unknown [id number] 2.16.840.1.888829.3.579. 2 1964 Unknown [id number] 2.16.840.1.132935.3.579. 2 1964 Unknown [id number] 2.16.840.1.551794.3.579. Private Health Insurance Self Pay [id number] Self-pay Self Pay [id number] Social History Date Type Detail Facility Tobacco smoking stat [facility] Unknown if ever smoked [facility] Start: 1965 Sex Assigned At Male F [facility] Start: 01-24-2020 End: 12-01-2023 Tobacco smoking status NHIS Ex-smoker [facility] Start: 01-24-2020 End: 12-01-2023 Tobacco use and exposure Smokeless tobacco non-user [facility] Start: 02-20-2021 End: 05-09-2024 Alcohol intake Lifetime non-drinker (finding) [facility] Start: 01-24-2020 History SDOH Alcohol Frequency 1 [facility] Start: 01-24-2020 End: 12-01-2023 Tobacco Comment quit in 2011 [facility] Start: 1965 Sex Assigned At Not on file [facility] Start: 01-19-2022 End: 01-29-2022 Exposure to SARS-CoV-2 (event) Unable to assess [facility] History of tobacco use Current smoker [facility] Start: 01-24-2020 End: 05-04-2023 History of Social function [facility] Start: 01-24-2020 End: 05-04-2023 Alcohol Use Disorder Identification Test - Consumption [AUDIT-C] [facility] How often to you hav e a drink containing alcohol? Never [facility] Average Number of Drinks Not on file [facility] Start: 07-23-2020 End: 02-20-2021 Exposure to SARS-CoV-2 (event) Not sure [facility] Goals Date Patient Goal Desired Activity /State Clinical Notes 08-22-2020 to 11-23-2024 Telephone Encounter - Darrian Dubon MD - 11/23/2024 12:36 PM ESTTelephone Encounter - Darrian Dubon MD - 11/23/2024 12:36 PM ESTPatient InstructionsPatient InstructionsPatient Instructions Note Date & Type Note Facility 11-23-2024 Telephone encounter Note Thank you for trying. Since has seen his PCP, he would not need sooner apt with me. thank you kindly, fa [facility] 11-23-2024 Miscellaneous Notes Thank you for trying. Since has seen his PCP, he would not need sooner apt with me. thank you kindly, fa Patient returned call and can not make it today, seen his PCP for the issue.please advise. Hi Dr. Dubon - I tried reaching Ms. Toscano via phone (several times), but I continued to reach her voicemail. I left her a message letting her know we scheduled her an appointment with you for today, 11/23/24 at 11:40am. I asked her to call back if she is unable to make this appointment. Patient does not have MyChart. Thank you, Jordyn KELLER November 23, 2024 9:03 AM Please offer appt with Dr Dubon or CLEANING PROFESSIONAL, if patient still interested. Thank you for the excellent triage. We understand his frustration. If patient would like to see Dr. Lackey, that is good, especially if he can be seen this week for evaluation of his pains. He can update us after he has seen his PCP. If his pains are not resolve and if any joint swelling, I recommend obtaining labs and f/u apt in office with us in rheum. Can offer apt with me or any rheum ANGÉLICA (CLEANING PROFESSIONAL or PA) who has opening soon. thank you kindly, fa -Pt returning call to office. Pt identified by name and date. Pt given message as detailed below and verbalized understanding. -States the only trauma/injury he has experienced recently is that he stubbed his RT middle toe 3 days ago. States this is bone char kiln tender with movement. Denies any change in color to the toe or any swelling. -Pt states the bottoms of his feet are sore with ambulation in the morning and his hands are stiff and painful when he tries to stretch them out. States the pain/stiffness is also in his BL shoulders and radiates into his upper back. -States his pain is worse in the morning and subsides a little after he showers and takes acetaminophen. States he takes 500 mg acetaminophen 3 tablets 3x daily. Cautioned Pt against exceeding the daily maximum for this medication. -Pt states he has to take this amount of acetaminophen daily to be able to tolerate the pain. States he still has pain on this dose, but it is a little more tolerable. -Pt frustrated with the questions asked. States he needs to go back on the steroids he was prescribed by Dr. Lackey for similar pain issues. States he may have to go back to seeing Dr. Lackey. Pt then apologized and ended the call. Left message requesting return call. Thank you for the information provided. Patient seen recently and was in remission, had no pain. Please call patient to verify further: Any fevers, infections recently ? Any injury, trauma or change in activity ? Any joint swelling ? If having morning stiffness, how long does it last ? Is the pain in the joints or muscles or bone ? Are these pains similar to what he has had before ? thank you kindly, fa Images from the original note were not included. 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 Rates pain 6/10. He has been taking Tylenol three times a day and it does help but not completely. Pain: Bilateral feet/fingers/shoulders Please advise documented in this encounter [facility] 11-23-2024 Telephone encounter Note Patient returned call and can not make it today, seen his PCP for the issue.please advise. [facility] 11-23-2024 Telephone encounter Note Hi Dr. Dubon - I tried reaching Ms. Toscano via phone (several times), but I continued to reach her voicemail. I left her a message letting her know we scheduled her an appointment with you for today, 11/23/24 at 11:40am. I asked her to call back if she is unable to make this appointment. Patient does not have MyChart. Thank you, Jordyn KELLER November 23, 2024 9:03 AM [facility] 11-23-2024 Telephone encounter Note Please offer appt with Dr Dubon or CLEANING PROFESSIONAL, if patient still interested. [facility] 11-22-2024 Telephone encounter Note Thank you for the excellent triage. We understand his frustration. If patient would like to see Dr. Lackey, that is good, especially if he can be seen this week for evaluation of his pains. He can update us after he has seen his PCP. If his pains are not resolve and if any joint swelling, I recommend obtaining labs and f/u apt in office with us in rheum. Can offer apt with me or any rheum ANGÉLICA (CLEANING PROFESSIONAL or PA) who has opening soon. thank you kindly, fa [facility] 11-22-2024 Note Urology Office/Clini c Note Chief Complaint referral HPI Staff 59yr old male referred by Dr. Lackey for kidney stones w/ KUB. KUB done at [facility] on 11/14/24. Pt has seen Dr. Gonzalez in the past for kidney stones. States he knows he still has them. Dysuria: denies Incomplete bladder emptying: denies Hematuria: denies Frequency: maybe 3x per day, does not drink a lot of fluid Urgency: denies Nocturia: 1x per night Stream: start/stop stream, good stream Leaking: denies Post void dripping: has start/stop stream Wearing pads/ Depends: wears a pad Urge incontinence: denies Stress incontinence: denies Incontinence without Sensory Awareness: denies Abdominal pain: has some upper abdominal discomfort Flank pain: denies Sexual complaints: denies History of Present Illness Tests reviewed: UA, referral records, KUB, CTs I have reviewed the previous health record information and history for this patient from Dr. Lackey. I have reviewed and verified the staff HPI to be accurate for this encounter. Review of Systems PHQ Score Initial Depression Screen Score: 0 SCORE ROS - Provider Constitutional: denies weight loss, denies hot flashes. Eyes: denies eye problems. Gastrointestinal: denies nausea, denies vomiting. Cardiovascular: denies chest pain or angina. Integumentary: no dryness Musculoskeletal: denies musculoskeletal symptoms. ENMT: denies otolaryngeal symptoms. Respiratory: no shortness of breath. Heme/Lymph: denies easy bleeding tendency, denies easy bruising tendency. Psychiatric: no confusion, no anxiety. Genitourinary: See HPI. Physical Exam Vitals & Measurements T: 37 ???C(Oral) HR: 91(Peripheral) RR: 18 BP: 118/80 HT: 65 in HT: 166 cm WT: 77.1 kg WT: 169.976 lb BMI: 27.98 General Appearance: alert, no distress, well nourished, well developed male. Assessment/Plan Jam is a 59 yo male new pt referred by Dr. Lackey due to kidney stones. Prior Dr. Gonzalez pt, last seen 03/2021 due to kidney stones, BPH w/obstruction, ureteral stone, prostate stone, bladder mass (s/p cysto 02/04/21 which was neg for b.t.). 1. Ureteral stone with hydronephrosis (N13.2: Hydronephrosis with renal and ureteral calculous obstruction) CT AP wo con 10/23/23 [facility] - Approximately 5 to 6 mm proximal left ureteral calculus with minimal left hydronephrosis. Approximately 4 to 5 mm nonobstructing RLP renal calculus. KUB 11/14/24 [facility] - Neg. UpH 6.5, could still be uric acid. Doesn't think he has passed L ureteral stone seen by CT from 10/2023. Potentially uric acid since KUB neg. Recommended updating imaging with CT to eval if he has remaining stones. Pt agreeable. Follow up pending CT below or sooner if needed. Pt understands and agrees with plan. -Schedule CT AP wo con. 2. Kidney stones (N20.0: Calculus of kidney) See #1. 3. BPH with urinary obstruction (N40.1: Benign prostatic hyperplasia with lower urinary tract symptoms) Cysto by Dr. Gonzalez 02/04/21 - Large middle lobe; stone is sitting in the prostate fossa [1]. Trabeculated: Moderate (2) [2]. Not taking any prostate or bladder meds. Doesn't feel he empties completely. Moderate stream. No hx of UTI. Per pt, Dr. Gonzalez recommended TURP but pt was not interested in having a catheter. 4. Feeling of incomplete bladder emptying (R39.14: Feeling of incomplete bladder emptying) Does not feel he empties completely. -PVR to be done IO today. 5. Screening PSA (prostate specific antigen) (Z12.5: Encounter for screening for malignant neoplasm of prostate) PSA: 06/24/16 - 1.60 *only level per [facility] 08/13/18 - 2.29 *only level on clinisync -PSA to be drawn IO today. 6. Pyuria (R82.81: Pyuria) UA shows trace leuks. Asx. 7. 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 CT AP w con 11/04/23 [facility] - There are multiple low-density lesions in both kidneys consistent with cysts. There are no solid renal lesions. -Does not require surveillance. Follow-up With When Contact Information DARRELL ROBLERO, Marcin Maguire, URL [facility] [address], [place] [id number]- Additional Instructions: f/u pending CT Patient Education Dietary Guidelines to Help Prevent Kidney Stones I, Jennifer Nagel, personally scribed for Dr. Ramírez on 11/21/2024 12:45:34. . Documentation recorded by the scribe, Jennifer Nagel, accurately reflects the services(s) I performed and decisions made by me. Authenticated by Dr. Ramírez on 11/21/2024 12:47:30. Problem List/Past Medical History Ongoing Acute diarrhea Adenomatous colon polyp Anemia Arthritis Bladder mass Bladder stone BPH with urinary obstruction Continuous severe abdominal pain Elevated alkaline phosphatase level Feeling of incomplete bladder emptying Gross hematuria Hea (more content not included)... [facility] Comment on above: Result Comment: Elec tronically Signed By: Jennifer Nagel\.br\Date and Time Signed: 11/22/24 08:57 EST\.br\Electronically Co-Signed By: Marcin RAMÍREZ MD\.br\Date and Time Co-Signed: 12/02/24 11:56 EST 11-22-2024 Telephone encounter Note -Pt returning call to office. Pt identified by name and date. Pt given message as detailed below and verbalized understanding. -States the only trauma/injury he has experienced recently is that he stubbed his RT middle toe 3 days ago. States this is bone char kiln tender with movement. Denies any change in color to the toe or any swelling. -Pt states the bottoms of his feet are sore with ambulation in the morning and his hands are stiff and painful when he tries to stretch them out. States the pain/stiffness is also in his BL shoulders and radiates into his upper back. -States his pain is worse in the morning and subsides a little after he showers and takes acetaminophen. States he takes 500 mg acetaminophen 3 tablets 3x daily. Cautioned Pt against exceeding the daily maximum for this medication. -Pt states he has to take this amount of acetaminophen daily to be able to tolerate the pain. States he still has pain on this dose, but it is a little more tolerable. -Pt frustrated with the questions asked. States he needs to go back on the steroids he was prescribed by Dr. Lackey for similar pain issues. States he may have to go back to seeing Dr. Lackey. Pt then apologized and ended the call. [facility] 11-21-2024 Note Patient Education Nephrology Dietary Guidelines to Help Prevent Kidney Stones Kidney stones are deposits of minerals and salts that form inside your kidneys. Your risk of developing kidney stones may be greater depending on your diet, your lifestyle, the medicines you take, and whether you have certain medical conditions. Most people can lower their risks of developing kidney stones by following these dietary guidelines. Your dietitian may give you more specific instructions depending on your overall health and the type of kidney stones you tend to develop. What are tips for following this plan? Reading food labels ??? Choose foods with no salt added or low-salt labels. Limit your salt (sodium) intake to less than 1,500 mg a day. ??? Choose foods with calcium for each meal and snack. Try to eat about 300 mg of calcium at each meal. Foods that contain 200?500 mg of calcium a serving include: ? 8 oz (237 mL) of milk, iqsabbl-qelihyktiwwk-xucik milk, and calcium-fortifiedfruit juice. Calcium-fortified means that calcium has been added to these drinks. ? 8 oz (237 mL) of kefir, yogurt, and soy yogurt. ? 4 oz (114 g) of tofu. ? 1 oz (28 g) of cheese. ? 1 cup (150 g) of dried figs. ? 1 cup (91 g) of cooked broccoli. ? One 3 oz (85 g) can of sardines or mackerel. Most people need 1,000?1,500 mg of calcium a day. Talk to your dietitian about how much calcium is recommended for you. Shopping ??? Buy plenty of fresh fruits and vegetables. Most people do not need to avoid fruits and vegetables, even if these foods contain nutrients that may contribute to kidney stones. ??? When shopping for convenience foods, choose: ? Whole pieces of fruit. ? Pre-made salads with dressing on the side. ? Low-fat fruit and yogurt smoothies. ??? Avoid buying frozen meals or prepared deli foods. These can be high in sodium. ??? Look for foods with live cultures, such as yogurt and kefir. ??? Choose high-fiber grains, such as whole-wheat breads, oat bran, and wheat cereals. Cooking ??? Do not add salt to food when cooking. Place a salt shaker on the table and allow each person to add their own salt to taste. ??? Use vegetable protein, such as beans, textured vegetable protein (TVP), or tofu, instead of meat in pasta, casseroles, and soups. Meal planning ??? Eat less salt, if told by your dietitian. To do this: ? Avoid eating processed or pre-made food. ? Avoid eating fast food. ??? Eat less animal protein, including cheese, meat, poultry, or fish, if told by your dietitian. To do this: ? Limit the number of times you have meat, poultry, fish, or cheese each week. Eat a diet free of meat at least 2 days a week. ? Eat only one serving each day of meat, poultry, fish, or seafood. ? When you prepare animal proteins, cut pieces into small portion sizes. For most meat and fish, one serving is about the size of the palm of your hand. ??? Eat at least five servings of fresh fruits and vegetables each day. To do this: ? Keep fruits and vegetables on hand for snacks. ? Eat one piece of fruit or a handful of berries with breakfast. ? Have a salad and fruit at lunch. ? Have two kinds of vegetables at dinner. ??? You may be told to limit foods that are high in a substance called oxalate. These include: ? Spinach (cooked), rhubarb, beets, sweet potatoes, and Norwegian chard. ? Peanuts. ? Potato chips, burkinan fries, and baked potatoes with skin on. ? Nuts and nut products. ? Chocolate. ??? If you regularly take a diuretic medicine, make sure to eat at least 1 or 2 servings of fruits or vegetables that are high in potassium each day. These include: ? Avocado. ? Banana. ? [place], prune, carrot, or tomato juice. ? Baked potato. ? Cabbage. ? Beans and split peas. Lifestyle ??? Drink enough fluid to keep your urine pale yellow. This is the most important thing you can do. Spread your fluid intake throughout the day. ??? If you drink alcohol: ? Limit how much you have to: ? 0?1 drink a day for women who are not . ? 0?2 drinks a day for men. ? Know how much alcohol is in your drink. In the [place] one drink equals one 12 oz bottle of beer (355 mL), one 5 oz glass of wine (148 mL), or one 1? oz glass of hard liquor (44 mL). ??? Lose weight if told by your health care provider. Work with your dietitian to find an eating plan and weight loss strategies that work best for you. General information ??? Talk to your health care provider and dietitian about taking daily supplements. Depending on your health and the cause of your kidney stones, you may be told: ? Do not take high-dose supplements of vitamin C (1,000 mg a day or more). ? To take a calcium supplement. ? To take a daily probiotic supplement. ? To take other supplements such as magnesium, fish oil, or vitamin B6. ??? Take stgu-xsa-iklyoyb and prescription medicines only as told by your health (more content not included)... [facility] 11-21-2024 Telephone encounter Note Left message requesting return call. [facility] 11-21-2024 Telephone encounter Note Thank you for the information provided. Patient seen recently and was in remission, had no pain. Please call patient to verify further: Any fevers, infections recently ? Any injury, trauma or change in activity ? Any joint swelling ? If having morning stiffness, how long does it last ? Is the pain in the joints or muscles or bone ? Are these pains similar to what he has had before ? thank you kindly, fa [facility] 11-21-2024 Telephone encounter Note Images from the original note were not included. 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 Rates pain 10. He has been taking Tylenol three times a day and it does help but not completely. Pain: Bilateral feet/fingers/shoulders Please advise [facility] 10-05-2024 Instructions Darrian Dubon MD - 10/05/2024 7:56 AM EST -PLEASE NOTE THAT WE REVIEW ALL YOUR TEST RESULTS AT YOUR NEXT FOLLOW UP VISIT WITH YOU. IF ANY ABNORMAL LAB REQUIRES SOONER ATTENTION, WE WILL CONTACT YOU. -If you have signed up on [employer], we will release your test results through [employer]. I wish you the best of health [...] track your nutrition and calcium intake on [email or web address] This provides macro and micronutrient intake and requirements. - You can track your calcium intake on [employer] or any other calcium tracker of your [...] youtube and copy and paste this link: [email or web address] This is done by a Physical Medicine and Rehab doctor who is a graphic design professor in [employer]. She completed a PhD at the [employer]. I hope you find it helpful. Please [...] hazelnuts, legumes, soybeans and other beans) - [place] (potatoes, avocados, almonds, peanuts) - [place] (broccoli, [...] which are towards bone density: -SUDHEER Carrillo., NYLA Dodson., Flores, PY. et al. Soy isoflavone intake inhibits bone resorption and stimulates bone formation in menopausal women: meta-analysis of randomized controlled trials. Eur J Clin Nutr 62, 155-161 (2007). https://doi.org/10.1038/sj.ejcn.535709 8 -Clyde Rosa, Trisha Lara, Bar De Leon et al. Isoflavone intervention and its impact on bone mineral density in postmenopausal women: a systematic review and meta-analysis of randomized controlled trials. Osteoporos Int (2022). https://doi.org/10.1007/o34462-591-259 44-y -Jack Finch, Trisha Lara, Andrez Grant. et al. Effects of isoflavone interventions on bone mineral density in postmenopausal women: a systematic review and meta-analysis of randomized controlled trials. Osteoporos Int 31, 2738-8370 (2020). https://doi.org/10.1007/v15883-279-566 76-z - Benefits of consuming soy in whole foods are listed in this article at the PCR website: https://www.pcrm.org/good-nutrition/nu trition-information/sxh-iuf-ojbjie - Prunes have been reported to help with bone density and inflammation, and are also beneficial for the gut microbiome and constipation. -The Prune Study article: Perrin, Sivakumar ALDANA, Jordy NI, Edouard H, Flor KJ, Trey C, Praveena MG, Nakatsu CH, Stewart C. Prunes preserve hip bone mineral density in a 12-month randomized controlled trial in postmenopausal women: the Prune Study. Am J Clin Nutr. 2021Aug 21;116(4):897-910. doi: 10.1093/ajcn/rjbv565. PMID: 17392640. -Benefit to bone density and inflammation: Hebert WYMAN, Perrin, Glory SOLARES, Sivakumar ALDANA, Trey CUBA. The Role of Prunes in Modulating Inflammatory Pathways to Improve Bone Health in Postmenopausal Women. Adv Nutr. 2021Aug 17;13(5):2220-4184. doi: 10.1093/advances/kczp509. PMID: 45856469; PMCID: [id number]. - Information on Vitamin K2: more recently [...] with the exception of Natto (a traditional [place] Islander food made from fermented soybeans) has high amounts of vitamin K2 (MK7). Please avoid vitamin K1, as this can raise the risk of blood clots If you are on coumadin or warfarin you should not take vitamin K. Please discuss with your prescriber. Additional information on vitamin K is available at the NIH website: https://ods.od.nih.gov/factsheets/Tiffanie minK-HealthProfessional/#h2 -Magnesium rich foods include: raw nuts [...] of these foods, please consult with your Property Developer or Physician first. Review of Osteoporosis medications [...] in the office. This medication is given technician terminal and repeater, indefinitely. Prolia should not be discontinued without [...] looked into transition therapy. Recent study from [facility], [place] Slim et al, 04/11/2020 (PMID: [id number].The study is ongoing, clinicaltrials.gov; [id number]), reported one infusion of IV Reclast did [...] initiated in patients who have had an [place] or stroke in the preceding year or those considered high risk. We may need a clearance from a Pile Trimmer prior to proceeding with this medication in [...] and the different available medications at the [place] [employer] website at: https://www.rheumatology.org/I-Am-A/Ernesto greennt-Caregiver/Diseases-Conditions/Os teoporosis - Additional information on Bone Health [...] Osteoporosis Foundation) http://www.osteo.org/osteolinks.asp National Institutes of Health: 9-339-717-BONE The Calcium Information Center: Non-Dairy, Plant based Milk, can contain in1 glass up to 450 mg of calcium (300 to 450 mg) Exampled include Oat Milk, Flax Milk, Perry Milk, Cashew Milk, Soy Milk, Peas Milk Examples of Food Sources of Calcium from NIH Food Milligrams (mg) per serving Percent DV* Soymilk, calcium-fortified, 8 ounces 299 30 [place] juice, calcium-fortified, 6 ounces 261 26 Tofu, firm, made with calcium sulfate, cup* 253 25 Tofu, soft, made with calcium sulfate, cup* 138 14 Hqmnz-uq-gpl cereal, calcium-fortified, 1 cup 100-1,000 10-100 Turnip greens, fresh, boiled, cup 99 10 Kale, raw, chopped, 1 cup 100 10 Kale, fresh, cooked, 1 cup 94 9 [place]an cabbage, bok marin, raw, shredded, 1 cup 74 7 Bread, white, 1 slice 73 7 Tortilla, corn, tqvpt-sz-ubad/marshall, one 6 diameter 46 5 Tortilla, flour, wlqgi-qc-nhyh/marshall, one 6 diameter 32 3 Bread, whole-wheat, [...] daily with a meal; Certain patients require 7601-6443 international units daily and in patients deficient [...] bones. Studies show approximately 50% of [place] men and women are vitamin D deficient [...] of falling. Additional Information is available from: [facility] Osteoporosis Information: https://my.[facility].org/departm ents/orthopaedics-rheumatology/depts/o steoporosis-metabolic The Bone Health and Osteoporosis Foundation (formerly the National Osteoporosis Foundation) : https://www.bonehealthandosteoporosis. org International Osteoporosis Foundation: https://www.osteoporosis.foundation http://ods.od.nih.gov/factsheets/vitam ind.asp National Institutes of Health: 7-259-351-BONE The Calcium Information Center: I recommend following a healthy lifestyle. You [...] track your nutrition and calcium intake on www.Lanzaloya.com.Hoods This provides macro and micronutrient intake and [...] that features the Whole Plant Based diet, [place] over knives (see video online and visit website). Another movie that was recently released is: Eating You Alive (you can find it at [employer]) and The Starteed ChangeBA Insight movie Dr. Fauzia Ansari is a [facility] physician who has done research and published books, is an expert in Whole Plant based diet for prevention and reversal of heart disease. His website is Swink.tv. His research highlights the benefits of the Whole food plant based diet in reversing and preventing heart disease. Mrs. Cookie Ansari (his ) has a cookbook with many recipes on whole plant based food: The Prevent and Reverse Heart Disease cookbook. Cookie and Yamilejose Ansari have a cooking show on YouTube called: Plant-Based with Yamile Ansari and Cookie Ansari. You can also consider reading his son, Eze Ansari's book: The Engine 2 cookbook Eze is a retired nanofabrication specialist who has helped many people get healthier by following the whole food plant based diet. Dr. Rock Velazco, has a website and free angélica to help get started on a whole plant based diet, at www.pcrm.org and you can log on for free for his 21-Day Kickstart with meals and recipes to follow for 21 days. There is also a free angélica for that. He has multiple free videos and YouTube, for example: https://youEverplacesu.be/xbeCdvvE5w0 , https://youtu.be/PpXMHotid6c He has written multiple books, including InSample for the Brain, The Cheese Trap, Dr. Rock Velazco's Program for Reversing Diabetes, Your Body in Balance You can also watch YouTube channel : The Doc & Planer Feeder Dr. Anthony Carlson has shown the benefit of a starch based whole food plant based diet to his Rheumatoid Arthritis patients, as well as patient with diabetes II, hypertension, obesity, multiple sclerosis, heart disease, acne, and other, his website: www.SeeYourImpact.org.Hoods Dr. Yayo Allred is a renowned validation scientist, who has studied and researched the benefits of the Whole plant based diet. He has also researched the adverse effects of animal proteins on health. He presents many of his research findings in his book The Shiro study. Dr. Gerber Becker has completed many research trials proving the reversal of diseases, such as heart disease and early prostate cancer, with healthy lifestyle and the Whole Plant based diet. Dr. Gerber Becker website is: www.carmenSmartCloud.Hoods His new book: Undo It, has evidence [...] videos and YouTube, for example https://youtu.be/aSgNkhgVtks and https://youEverplacesu.be/lXXXygDRyBU. He has written multiple books including: How Not To and How Not To Diet He is now working on his next book: How Not To Age Dr. Danitza Dash (from the [facility]), has articles on the following website: Redeemia For additional ideas on recipes, you could find additional information on practical to follow recipes by reading or watching online and YouTube such as: Planer Feeder AJ, Cooking With Plants, The Vegan Corner (recipes from an [place] Planer Feeder), The Whole Foods Plant Based Cooking Show and visiting the provided websites for additional information on the whole plant based benefit and cooking recipes. You can also consider watching the vlogs of some of the plant based Athletes such as Graeme Kamara, Agustin Lundy on [facility]. You can find very good recipes for [...] Dr. Jenny Degroot Lifestyle Medicine (is a Pile Trimmer and Lifestyle Medicine Physician) -Sometimes it helps to start with a simple diet of potatoes, that Dr. Carlson calls Yarelis Carrie. You can learn more about that in his website: www.Network Physics This is the website for Yarelis Carrie pdf : https://www.[employer]..Hoods/wp-content /uploads//Georgiana-Carrie_Website_Pr int_Version-1.pdf You can also read more on Dr. Carlson's website - When you goal is to lose weight, it is important to listen to your hunger cues. Don't eat until you are stuffed. As soon as you feel you are no longer hungry, stop eating. There is a [place] Islander saying that says Tammie Vega, meaning eat until you are 80% full. I say avoid eating past 80% of your stomach fullness. This originated from the city of [facility], which is one of the sites reported in the [employer] book, one of the highest cities in the world for having the most centenarians. Remember your stomach needs space and capacity for proper digestion of your food. Like a food and beverage assistant or a dry primer powder blender, they have a limit for proper function, and should not be filled to the top. You can read more about that from the [facility] article Don t Eat Until You re Full ? Instead, Mind Your [place]ie [place] , at https://health.[place] healthcare.org/don h-ieb-iqhbs-qhwuj-owju-euosdlw-mind-yo gk-wagq-wkido-salvador-annie/ Most plants contain proteins and all essential [...] also important to ensure they are 3rd alliance party tested to avoid contaminants. You can track your macros on a nutrition tracker such as cronometer or myfitnesspal and others. Dr. Maryan Holguin (a psychiatrist [...] you will need to consult with a medical concierge to have further evaluation to exclude Celiac [...] - Gentle Yoga Anyone Can Do Anywhere www.[employer].Hoods/yoga Also on youtube: yoga with Karlie For women, especially after menopause, strength training is important. You can read more on that from Clare Morley, PhD at her website https://www.Clout and YouTube videos. If you are a beginner, it is best to start with a physical therapist or sap trainer. There are also several Aps that offer virtual personal training 3- Good Sleep (poor sleep impacts everything, recommended sleep is 7 to 8 hrs. a night). Certain people may need more sleep, depending on their age and other conditions. Meditation and relaxation techniques have shown to help with improving sleep. Try to be consistent with your sleep. You can find more at the [facility] Website on : https://my.[place] healthcare.org/departm ents/wellness/store/go-well#sleep-tab 4- Stress management, be happy, laugh [...] Calm Insight Timer Meditation Stress Free Now ([facility]). You can find more resources at the [facility] website at : https://my.[place] healthcare.org/departm ents/wellness/store/go-well#stress-iron e-tab There are many free youtube videos on guided meditation as well For Breathing techniques: You can watch John Carlisle and learn the breathing technique and its benefits by watching the following YouTube: https://Stackpop.be/9Cm4W-FAg26?si=-Xtdfr 4UpsJOUbDU. Learning about your awareness/spiritual being, is very empowering and helps with stress, anxiety, mental clarity and wellbeing. I recommend 2 books to start learning about that from well renown spiritual teachers: -The Power of Now by aCndie Cuadra -The Unteathered Soul, by Cody Acevedo You can buy these books or borrow them from your local Library They both have many youtube videos and podcasts that you can listen to, and are free. If needed, you can work with a psychotherapist or behavioral health middle school football coach. When having a psychiatric condition, it [...] or a higher dose. Raw: Garlic, Cilantro, Ivins nuts, Pumpkin seeds, [place] seeds and Flax seed powder have been reported to help with certain metal detoxification such as mercury. Upson-3 plant based rich foods are good anti-inflammatory [...] the Whole Plant Based Diet, by watching [place] over We Are Hunted movie and then review website. There are many other resources and educational information on the Whole plant based diet on the Internet and documentaries. There are other resources for wellness that you can also benefit from, such as the [facility] Wellness website, [facility] and includes Plant based and Mediterranean diet, yoga and meditation. Please avoid all dairy products. You could use non-dairy milk such as Flax milk, Cashew milk, Perry milk, Rice milk, Oat milk or Hemp [...] below, just add the ingredients to your dry primer powder blender and blend: - Probably the healthiest smoothie is one that contains mostly green leafy vegetables (especially containing kale), some berries, flax seed and water. This might not glove turner to be sweet. You can add one or two pitted dates or a frozen banana for natural sweetness. Examples of healthy green smoothies, pack your dry primer powder blender (at least half way to 3/4) with a mix of green leafy veggies, then top your dry primer powder blender with fruits (such as banana or frozen raul or pineapple, peaches, apricots, apples, grapes), a tablespoon of flax or david seeds, then add water or unsweetened coconut water and blend until smooth. You can also add turmeric in this recipe. Do not only use spinach as they tend to be high in oxalates and can be risk for kidney stones. The same with niuean chards and beet leaves. If you don't [...] of your health and wellbeing. At the [facility], we work as a team for your care, along with Nurse Practitioners, Physician Assistants, Nurses and Medical Assistants. It is a privilege and honor to serve you. Thank you for choosing [facility] for your healthcare. Sincerely, Darrian Dubon MD [...] usual activities immediately. documented in this encounter [facility] 10-05-2024 Note HNO ID: [id number] Author: DARRIAN DUBON MD Service: ? Author Type: Physician Type: Progress Notes Filed: 10/16/2024 19:47 Note Text: FOLLOW UP VISIT Patient's Name: Jam Erwin [facility] [address] PCP: Jose L Lackey MD [address] [place] [address] Consult Requested by: JoseL Lackey MD [address] [facility] [address] Other physicians: Senior Housekeeper prevBrittney Lebron MD (his prev. medical concierge left- Ronald Brown MD) ; Now following [...] No stiffness He is on sulfasalazine per medical concierge for his UC and this has been controlling his RA He is pleased with his treatment regimen He also states that his IBD is well controlled, states told is in remission, on Entyvio Doing exercise and working with sap trainer at the gym and will be going [...] in IBD and is following with local medical concierge for that. Has been on Humira since Sep 2020 (started with 80 mg loading dose and since has been on 40 mg every 2 wks) He was pleased with Enbrel response to his RA and later was switched to Humira, reports has similar benefit and is pleased with response. His medical concierge switched him to Humira for optimal mgt of IBD and he feels this has helped his IBD better. Reports still gets 8 BM's a day, does not have BM at night, does not have to wake up from sleep. Has been following with his medical concierge for his UC Had colonoscopy 11/22/2021 with reported marked improvement in asc/transv/desc colon and severe active in rectum, histopath with active colitis with erosions. States Dr. Lebron has started him on rectal enemas. Recent colonoscopy with reported active colitis. He tells me that he continues to have multiple BM's; His medical concierge prescribed pred. course, completed recently. No jt [...] us, he is on Humira per his Senior Housekeeper He is off Enbrel, was switched to Humira by his medical concierge. (previously was on Enbrel 25 mg twice a wk and has been in remission since on Enbrel and very pleased with his treatment regimen) He is on Humira 40 mg every 2 wks by his Senior Housekeeper He is on sulfasalazine, Humira and mesalamine enemas per his medical concierge I have reviewed benefits of a whole food plant based diet He consumes dairy, cheese, sausage, hamburger. I have advised him on avoiding meats and dairy and reviewed reports and patient experience with flare of IBD and RA, as well as gastrointestinal dysbiosis. I advised him on a whole foods plant based diet. He has a dry primer powder blender (GeekChicDaily) and interested in making healthy smoothies and [...] I have ad (more content not included)... [facility] 10-05-2024 History of Present illness Narrative Images from the original note were not included. FOLLOW UP VISIT Patient's Name: Jam Erwin [facility] [address] PCP: Jose L Lackey MD [facility] [place] [address] Consult Requested by: Jose L Lackey MD [address] [facility] [id number] Other physicians: Senior Housekeeper prev. Nel Lebron MD (his prev. medical concierge left- Ronald Brown MD) ; Now following [...] No stiffness He is on sulfasalazine per medical concierge for his UC and this has been controlling his RA He is pleased with his treatment regimen He also states that his IBD is well controlled, states told is in remission, on Entyvio Doing exercise and working with sap trainer at the gym and will be going [...] in IBD and is following with local medical concierge for that. Has been on Humira since Sep 2020 (started with 80 mg loading dose and since has been on 40 mg every 2 wks) He was pleased with Enbrel response to his RA and later was switched to Humira, reports has similar benefit and is pleased with response. His medical concierge switched him to Humira for optimal mgt of IBD and he feels this has helped his IBD better. Reports still gets 8 BM's a day, does not have BM at night, does not have to wake up from sleep. Has been following with his medical concierge for his UC Had colonoscopy 11/22/2021 with reported marked improvement in asc/transv/desc colon and severe active in rectum, histopath with active colitis with erosions. States Dr. Lebron has started him on rectal enemas. Recent colonoscopy with reported active colitis. He tells me that he continues to have multiple BM's; His medical concierge prescribed pred. course, completed recently. No jt [...] us, he is on Humira per his Senior Housekeeper He is off Enbrel, was switched to Humira by his medical concierge. (previously was on Enbrel 25 mg twice a wk and has been in remission since on Enbrel and very pleased with his treatment regimen) He is on Humira 40 mg every 2 wks by his Senior Housekeeper He is on sulfasalazine, Humira and mesalamine enemas per his medical concierge I have reviewed benefits of a whole food plant based diet He consumes dairy, cheese, sausage, hamburger. I have advised him on avoiding meats and dairy and reviewed reports and patient experience with flare of IBD and RA, as well as gastrointestinal dysbiosis. I advised him on a whole foods plant based diet. He has a dry primer powder blender (GeekChicDaily) and interested in making healthy smoothies and [...] 185 (improved from 04/30 labs) Hb 12 04/30: PLT 350 Has lithotripsy in April 2021 for nephrolithiasis per his Urologist Vitamin D 25 Hydroxy (ng/mL) Date Value 12/01/2023 63.0 02/20/2021 44.2 ] XR Ankle: IMPRESSION: Arthritic changes demonstrating interval progression in this patient with known rheumatoid arthritis. Battery Checker: CODY Transcribe Date/Time: Feb 20 2021 9:52A [...] felt rt shoulder needed to be stretched. States was working in yard, denies injury. Denies jt pains, outside of the left tip of ankle, states feels the top of the left ankle feels like it's jammed up , feels needs to pull bones apart. States is the site where has fallen arch. Has seen Hammer Shop Supervisor in the remote past for the fallen arch, not recently. Feels gets stiff when not moving as much. Denies any injury or trauma. Denies any pain to me today States his medical concierge has prescribed prednisone course due to IBD flare States after scope was told is flared. He is on sulfasalazine and budesonide and his medical concierge and since has switched him from Enbrel [...] Alk phos isoenz: liver fraction; followed by medical concierge He follows with his medical concierge for hi elev alk phos and AST and for bld with stools, Dr Brown: and states he started him on iron supplement States Dr. Brown prescribed metronidazole, for reported diarrhea. States felt it made a difference. States he gave him enemas and told that is for his ulcerative colitis and prescr. sulfasalazine. In 2019, has also followed with his medical concierge for blood with stools, and had flex sig and told he was inflamed from his Ulcerative colitis. [facility] had colonosc and EGD in 2018 and was told were good. Told his bld in stools from his UC and patient states notices also mucus when wipes. had increased his sulfasalazine dose. also notices that dairy and cheese caused really bad inflammation from these and has avoided since. also avoids coffee and consumes green tea [...] systems reviewed and are negative DXA Model: Given.to [id number] SITE SCANNED: Lumbar spine and left hip [...] were all normal. He follows with his medical concierge for his ulcerative colitis and is on sulfasalazine. He was told by his medical concierge to avoid sun exposure due to this med, had skin itching last summer. He had evaluation for elevated AST and alk phos. Alk phos has improved and AST has been borderline elevated. I have advised him to f/u with his medical concierge for his elevated alk phos (liver fraction) States his medical concierge did an US of his liver twice and was told was normal. He denies any alcohol consumption or acetaminophens. His isoenzyme indicated predom. of liver origin. The patient reports that his medical concierge completed evaluation and told his liver is fine. His liver US was unremarkable . His anemia has resolved since his UC has been controlled. States saw his medical concierge, Dr. Lebron, recently and states told him [...] and denies hematuria or dysuria. DXA Model: Given.to [id number] SITE SCANNED: Lumbar spine and left hip [...] reports doing well, states not bad . has seen a buckle sewer in the past, in [place], Dr. Whitfield. States used to be on Remicade with him, [...] the Enbrel and methotrexate Medications tried: Steroids: states was on it for yrs before starting [...] 500mg q 6hrs. Reports benefit and his medical concierge took him off the iron supplement as [...] Dactylitis: no H/o precedent/frequent infection(s): as above Enthesopathy/Swisshome's/heel/plantar tenderness: no Skin thickening, psoriasis, photosensitivity, purpura: no Nail changes: no Alpecia, patchy: no; has MPB Eye inflammation: no SICCA: no Oral/nasal/genital ulcers: no GI problems-diarrhea/bleeding/IBD/Gluten intolerence/Dysphagia: as above Raynaud's phenomenon/digital ulcers: no Organ inv-Serositis: no Lung disease/ILD: no Myopathy/proximal muscle weakness: no Abnormal Urine or urethritis: no Renal disease: no GROUP PRACTICE PEDIATRICIAN/PNS disease: no and denies MS HEME-Cytopenias/LAD/Clots: iron [...] vaccine, recombinant (SHINGRIX) 03/17/2022 06/09/2022 Pneumovax : 2014, 22 and then 12 Flu shot : [...] Marital Status: Single denies children 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 Lackey Smoking: quit 2012 Alcohol as above IVDU: denies Industrial toxic exposures: denies FAMILY HISTORY: No family history on file. suspects his mother may have had RA Mother: CAD, CABG, COPD/emphysemia Father: passed from [facility] bother were smokers PERTINENT TESTS: Component Latest [...] Abs Lymph 1.00 - 4.00 k/uL 3.02 Monona% 9.7 Abs Monona 0.00 - 0.86 k/uL 0.79 Eosin% 0.0 [...] Negative Negative Ketones, Urine Negative Negative Specific [place], Ur 1.005 - 1.030 1.008 Hemoglobin/Blood,Ur Negative 3+ (A) pH, Urine 4.5 - 8.0 6.0 Protein, Urine Negative mg/dL Negative Urobilinogen Normal Normal Nitrites Negative Negative Leukest Negative Negative Comments SEE COMMENT Urine Adan Comment SEE COMMENT WBC, Urine 0 - 5 /HPF 0-5 RBC, Urine 0 - 3 /HPF >25 (A) Sm Antibody <1.0 AI <0.2 FLAT OPTICAL ELEMENT MAKER Antibody <1.0 AI 1.2 (H) SSA Antibody <1.0 AI <0.2 SSB Antibody <1.0 AI <0.2 Centromere Ab <1.0 AI <0.2 Scleroderma Ab, IgG <1.0 AI <0.2 Milagro 1 Antibody <1.0 AI <0.2 Ribosomal FLAT OPTICAL ELEMENT MAKER <1.0 AI <0.2 Chromatin Antibody <1.0 AI [...] <12 Sm Antibody <1.0 AI <0.2 Ribosomal FLAT OPTICAL ELEMENT MAKER <1.0 AI <0.2 Chromatin Antibody <1.0 AI <0.2 SSA Antibody <1.0 AI <0.2 SSB Antibody <1.0 AI <0.2 FLAT OPTICAL ELEMENT MAKER Antibody <1.0 AI 1.2 Scleroderma Ab, IgG [...] FINDINGS CONSISTENT WITH CHRONIC SEVERE RHEUMATOID ARTHRITIS. Battery Checker: KETTY Transcribe Date/Time: Aug 29 2015 12:56P ... Last XR Ankle - Impression Only XR ANKLE GENERAL 3V AP/LAT/OBL LT Exam End: 02/20/2021 8:42 AM (Final result) Impression: IMPRESSION: Arthritic changes demonstrating interval progression in this patient with known rheumatoid arthritis. Battery Checker: CODY Transcribe Date/Time: Feb 20 2021 9:52A [...] developed and its performance characteristics determined by [facility] Path[facility] and Laboratory Medicine Advance ([facility]). It has not been cleared or approved by the FDA. [facility] is regulated under CLIA as qualified [...] 147 53 - 334 mg/dL Final MPA Valdez, Serum Date Value Ref Range Status 08/19/2018 1,020 534 - 1,267 mg/dL Final MPA Lambda, Serum Date Value Ref Range Status 08/19/2018 551 253 - 653 mg/dL Final MPA Valdez/Lambda Ratio Date Value Ref Range Status 08/19/2018 [...] , Gender: Male SCANNER INFORMATION: DXA Model: Given.to W [id number] SITE SCANNED: Lumbar spine and left hip [...] machine for accurate comparison. FOR MORE INFORMATION: [facility]oporosis [facility] Metabolic Bone Disease: www.ccf.org/arthritis/osteo National Osteoporosis Foundation: www.nof.org International Society of Clinical Densitometry www.iscd.org Battery Checker: [id number] Transcribe Date/Time: Sep 23 2022 10:28A Dictated [...] involving multiple sites with positive rheumatoid factor ([facility]) Z79.899 On sulfasalazine therapy K51.00 Ulcerative pancolitis ([facility]) Comment: On SSZ and Entyvio, managed by [...] in patient's severe chronic Rheumatoid Arthritis. His medical concierge has switched him to Humira as he [...] to receive intermittent steroid therapy from his medical concierge. Pharmacologic therapy is still indicated and recommended, [...] Also received labs per Primary care physician, Senior Housekeeper -The patient's medical concierge follows him for his UC, anemia and liver tests. He is on Entyvio and sulfasalazine per his Senior Housekeeper RA med: none from rheum, doing well on sulfasalazine, prescribed by GI (He was prev. on Enbrel 25 mg sq twice a week, or may switch to Humira if his medical concierge switched him to Humira TNF inhibitor therapy, [...] on sulfasalazine for his IBD per his medical concierge OP med: Received Reclast infusion, 5 mg IV on 05/09/2024 well tolerated Further infusions will be determined based on recheck DXA and CTX, or if on systemic steroids. As previously discussed, his OP med of choice is IV Reclast Oral bisphosphonate contraindicated due to his IBD and gastrointestinal disease. Osteoporosis was likely due to previous [facility] steroid therapy by other physicians over the [...] atypical and subtroch. fracture of femur with technician terminal and repeater use of bisphosphonates/alendronate and anti-resorptive agents, there [...] wished to proceed. Previous orders -CONSULT TO ALLIED HEALTH TEACHER -CONSULT TO PODIATRY Provided referral to OT for assistive devices, exercises to preserve left function Referral to bank boss for foot/ankle deformities and callus care, inserts/braces/orthotics, [...] which included preparing to see the patient, [id number]-[id number]-csli patient care, completing clinical documentation, obtaining and/or [...] appropriate immunization recommended. -Continued follow up with medical concierge for IBD management and monitoring for liver [...] Darrian Fischer MD Jose L Lackey MD [address] [facility] [address] documented in this encounter [facility] 06-03-2024 Note Progress Note-Physic sumaya Patient: JAM TOSCANO Age: 59 years Sex: Male : 1965 Associated Diagnoses: None Author: Kody Ramos Jr., DO Postoperative Information Postoperative disposition: Postoperative disposition: Home. Optimetrix number: Optimetrix number [id number]. Anesthetic utilized: General. Physical Examination Vital Signs [...] Ambulatory Surgery Unit, and To home ). [facility] Comment on above: Result Comment: Elec tronically [...] unsweetened, w/added ascorbic acid 1 cup 0.5 [place] 1 cup 0.7 Vegetables Cooked Green beans 1 cup 4.0 Carrots 1/2 cup sliced 2.3 Peas 1 cup 8.8 Potato (baked, with skin) 1 medium potato 3.8 Raw [place] (with peel) 1 cucumber 1.5 Lettuce 1 [...] 8.7 Peanuts 1/2 cup 7.9 [facility]more content not included)... [facility] 06-03-2024 Note Colonoscopy Procedur e Report Patient: JAM TOSCANO Age: 59 years Sex: Male : 1965 Associated Diagnoses: None Author: Asim Jaquez MD Pre-Procedure Procedure Date 06/03/2024 10:42:00 . Procedure Type: Colonoscopy with removal of tumor(s), polyp(s), or other lesion(s) by cold snare technique. Procedure provider Performed by Asim Jaquez MD. Current history and physical Documented on chart. Colonoscopy ([id number]) on 02/26/2024 at 58 Years. Colonoscopy ([id number]) on 03/23/2023 at 57 Years. Cystoscopy ([id number]) on 02/04/2021 at 55 Years. Colonoscopy ([id number]). right hip replacement (109640241). replacement on both knees (620471612). Hernia repair (85803248).. Past Medical History Resolved Extreme obesity ([id number]) : Resolved. Ulcerative colitis (588501651): Resolved.. Family History . Procedure History Colonoscopy ([id number]) on 02/26/2024 at 58 Years. Colonoscopy ([id number]) on 03/23/2023 at 57 Years. Cystoscopy ([id number]) on 02/04/2021 at 55 Years. Colonoscopy ([id number]). right hip replacement (055646772). replacement on both knees (973097683). Hernia repair (68736875).. Colorectal neoplasm risk assessment High risk Previous [...] was done under [facility]BI Images Procedure images: Rec1_hd_video__T09_21_36_200. jpg Rec1_hd_video__T09_22_55_424. jpg Rec1_hd_video__T09_23_18_623. jpg Rec1_hd_video__T09_29_41_858. jpg Rec1_hd_video__T09_30_41_061. jpg Rec1_hd_video__T09_30_56_348. jpg Rec1_hd_video__T09_31_04_045. jpg Rec1_hd_video__T09_34_28_909. jpg Rec1_hd_video__T09_37_47_521. jpg Rec1_hd_video__19T09_38_05_286. jpg Rec1_hd_video_2023__19T09_43_16_068. jpg (Inserted Image. Perla (more content not included)... [facility] Comment on above: Other Comment: Sheila trinh Attachment - attachment storage system not supported [id number] Can be [facility] Attachment - attachment storage system not supported [id number] Can be viewed in [facility] Attachment - attachment storage system not supported [id number] Can be viewed in [facility] Attachment - attachment storage system not supported [id number] Can be viewed in [facility] Attachment - attachment storage system not supported [id number] Can be viewed in [facility] Attachment - attachment storage system not supported [id number] Can be viewed in [facility] Attachment - attachment storage system not supported [id number] Can be viewed in [facility] Attachment - attachment storage system not supported [id number] Can be viewed in [facility] Attachment - attachment storage system not supported 5553610 Can be viewed in [facility] Attachment - attachment storage system not supported 9978435 Can be viewed in [facility] Attachment - attachment storage system not supported [id number] Can be viewed in [facility] Attachment - attachment storage system not supported [id number] Can be viewed in [facility] Attachment - attachment storage system not supported [id number] Can be viewed in [facility] Attachment - attachment storage system not supported [id number] Can be viewed in source system 06-03-2024 [...] stomach 3. Normal duodenum. Images Procedure images: Rec1_hd_video_2023__19T09_16_20_034. jpg Rec1_hd_video_2023__19T09_16_28_911. jpg Rec1_hd_video_2023__19T09_16_34_050. jpg Rec1_hd_video_2023__19T09_16_54_943. jpg Rec1_hd_video_2023__19T09_17_07_003. jpg Rec1_hd_video_2023__19T09_17_13_596. jpg Rec1_hd_video_2023__19T09_17_44_519. jpg Rec1_hd_video_2023__19T09_17_54_698. jpg Rec1_hd_video_2023__19T09_17_59_558. jpg . Post-Procedure Complications: none. Estimated blood loss: minimal. Specimens: sent to pathology. Devices/ implants: none left in place. Impression and Plan Gastropathy and bilious fluid in the stomach probable esophageal dysmotility Recommendations: -Resume previous diet -Resume home medications -Await pathology results, follow in GI clinic in 1-2 after discharge [facility] Comment on above: Other Comment: Sheila trinh Attachment - attachment storage system not supported [id number] Can be viewed in source systemMissing Attachment - attachment storage system not supported [phone] Can be viewed in source systemMissing Attachment - attachment storage system not supported [id number] Can be viewed in [facility] systemMisssal[facility] Attachment - attachment storage system not supported [id number] Can be viewed in [facility] system[facility] Attachment - attachment storage system not supported [id number] Can be viewed in [facility] Attachment - attachment storage system not supported [id number] Can be viewed in [facility] Attachment - attachment storage system not supported [id number] Can be viewed in [facility] Attachment - attachment storage system not supported [id number] Can be viewed in [facility] Attachment - attachment storage system not supported [phone] Can be viewed in source system 06-03-2024 [...] All Problems Acute diarrhea / SNOMED CT 3857437429 / Confirmed Adenomatous colon polyp / SNOMED CT 4366220154 / Confirmed Bladder mass / SNOMED CT 6040387039 / Confirmed Bladder stone / SNOMED CT 926632873 / Confirmed BPH with urinary obstruction / SNOMED CT 0582582646 / Confirmed Continuous severe abdominal pain / SNOMED CT 67299899 / Confirmed Gross hematuria / SNOMED CT 218696723 / Confirmed Heartburn / SNOMED CT 61452815 / Confirmed Hematochezia / SNOMED CT 3979352020 / Confirmed History of colon polyps / SNOMED CT 1080116069 / Confirmed Hyperlipemia / SNOMED CT 88037852 / Confirmed Incomplete bladder emptying / SNOMED CT 461454238 / Confirmed Kidney stones / SNOMED CT 584554778 / Confirmed Prostate calculus / SNOMED CT 496111089 / Confirmed Rectal bleed / SNOMED CT 400624140 / Confirmed Ulcerative colitis, universal / SNOMED CT 0425381711 / Confirmed Dowell ulcerative colitis / SNOMED CT 2155298164 / Confirmed Urethral stone / SNOMED CT 71386349 / Confirmed Resolved: Extreme obesity / SNOMED CT [id number] Resolved: Ulcerative colitis / SNOMED CT 529351873 Canceled: Ulcerative colitis / SNOMED CT 067657800 Histories Past Medical History: Resolved Extreme obesity ([id number]) : Resolved. Ulcerative colitis (098535521): Resolved. Procedure history: Colonoscopy ([id number]) on 02/26/2024 at 58 Years. Colonoscopy ([id number]) on 03/23/2023 at 57 Years. Cystoscopy ([id number]) on 02/04/2021 at 55 Years. Colonoscopy (409687799). right hip replacement (929106901). replacement on both knees (862914585). Hernia repair (78869088). Social History Social & Psychosocial Habits Alcohol 03/04/2024 Risk Assessment: Denies Alcohol Use Comment: denies - 01/14/2023 08:52 - Garcia, Tamiko I Exercise 03/04/2024 Risk Assessment: Occasional exercise Other 03/04/2024 Name: Caffiene- Coffee 1 cup daily Substance Abuse 03/04/2024 Risk Assessment: Denies Substance Abuse Comment: denies - 01/14/2023 08:52 - Garcia, Tamiko I Tobacco 03/04/2024 Risk Assessment: Denies Tobacco Use 03/04/2024 Tobacco Use: Former smoker, quit more Smokeless tobacco use: Never 03/04/2024 Tobacco Use: Former smoker, quit more Smokele (more content not included)... [facility] Comment on above: Result Comment: Elec tronically Signed By: Kody Ramos Jr., DO.br\Date and Time Signed: 06/03/24 09:03 EDT 05-09-2024 Note HNO ID: [id number] Author: TERESA FALLON RN Service: ? Author Type: Registered Nurse [...] 5. Taking antibiotics for current infection? No [facility] 05-09-2024 History of Present illness Narrative FOR [...] current infection? No documented in this encounter [facility] 05-09-2024 Instructions Nidia Weston APRN.AUTOMOTIVE PARTS CLERK - 05/09/2024 9:45 AM EDT -PLEASE NOTE THAT WE REVIEW ALL YOUR TEST RESULTS AT YOUR NEXT FOLLOW UP VISIT WITH YOU. IF ANY ABNORMAL LAB REQUIRES SOONER ATTENTION, WE WILL CONTACT YOU. -If you have signed up on Caprizat, we will release your test results through Acumentrics. I wish you the best of health [...] and sulfasalazine, but discuss first with your medical concierge. Supplements recommended Vitamin B12: 500 to 1000 [...] track your nutrition and calcium intake on www.Lanzaloya.com.Hoods This provides macro and micronutrient intake and requirements. - You can track your calcium intake on CLEARometer.Hoods or any other calcium tracker of your [...] now for a cost, such as at www.Adjudica. -When eating a whole food plant based [...] that features the Whole Plant Based diet, [place] over knives (see video online and visit website). Another movie that was recently released is: Eating You Alive (you can find it at [employer]ech Controls) and The Starteed ChangeBA Insight movie Dr. Fauzia Ansari is a [facility] physician who is an expert in Whole Plant based diet. His website is Swink.tv. His research highlights the benefits of the Whole food plant based diet in reversing and preventing heart disease. Mrs. Ansari (his ) has a cookbook with many recipes on whole plant based food: The Prevent and Reverse Heart Disease cookbook. You can also consider reading his son, Eze Ansari's book: The Engine 2 cookbook Eze is a retired nanofabrication specialist who has helped many people get healthier by following the whole food plant based diet. Dr. Rock Velazco, has a website and free angélica to help get started on a whole plant based diet, at www.pcrm.org and you can log on for free for his 21-Day Kickstart with meals and recipes to follow for 21 days. There is also a free angélica for that. He has multiple free videos and YouTube, for example: https://youtu.be/hciJjcgW3h9 , https://youtu.be/JaHHUqlwa4j He has written multiple books, including Power [...] heart disease, acne, and other, his website: www.debra.Hoods Dr. Yayo Allred is a renowned validation scientist, who has studied and researched the benefits of the Whole plant based diet. He has also researched the adverse effects of animal proteins on health. He presents many of his research findings in his book The Shiro study. Dr. Gerber Becker has completed many research trials proving the reversal of diseases, such as heart disease and early prostate cancer, with healthy lifestyle and the Whole Plant based diet. Dr. Gerber Becker website is: www.carmenSmartCloud.Hoods His new book: Undo It, has evidence based information and guide to following this healthy lifestyle. Dr. Cody Dillon has dedicated a website and additional time to reviewing all food related articles and research and presents them in his power point presentation and on his website at: nutritionfacts.org which is all free. Dr. Dillon has multiple free videos and YouTube, for example https://Stackpop.Affinity Air Service/aSgNkhgVtks and https://Stackpop.Affinity Air Service/lXXXygDRyBU. He has written multiple books including: How Not To and How Not To Diet He is now working on his next book: How Not To Age Dr. Danitza Dash (from the [facility]), has articles on the following website: ABL Solutions.Hoods Also, you could find additional information on practical to follow recipes by reading or watching online and YouTube such as: Planer Feeder AJ, Cooking With Plants, The Vegan Corner (recipes from an [place] Planer Feeder), The Whole Foods Plant Based Cooking Show and visiting the provided websites for additional information on the whole plant based benefit and cooking recipes. You can also consider watching the vlogs of some of the plant based Athletes such as Fausto Ewing Derek on Ep[employer]. Dr. Maryan Holguin (a psychiatrist who [...] - Gentle Yoga Anyone Can Do Anywhere www.Panacela Labs/yoga Also on youtube: yoga with Karlie 3- [...] or a higher dose. Raw: Garlic, Cilantro, Ivins nuts, Pumpkin seeds, [place] seeds and Flax seed powder have been reported to help with certain metal detoxification such as mercury. Upson-3 plant based rich foods are good anti-inflammatory [...] the Whole Plant Based Diet, by watching [place] over We Are Hunted movie and then review website. There are many other resources and educational information on the Whole plant based diet on the Internet and documentaries. There are other resources for wellness that you can also benefit from, such as the [facility] Wellness website, [facility].org and includes Plant based and Mediterranean diet, yoga and meditation. Please avoid all dairy products. You could use non-dairy milk such as Flax milk, Cashew milk, Perry milk, Rice milk, Oat milk or Hemp [...] Osteoporosis Foundation) http://www.osteo.org/osteolinks.asp National Institutes of Health: 7-436-210-BONE The Calcium Information Center: -Non-Dairy, Plant based Milk, can contain in1 glass up to 450 mg of calcium (300 to 450 mg) Exampled include Oat Milk, Flax Milk, Perry Milk, Cashew Milk, Soy Milk, Peas Milk general health and well being Examples of Food Sources of Calcium from NIH Food Milligrams (mg) per serving Percent DV* Soymilk, calcium-fortified, 8 ounces 299 30 [place] juice, calcium-fortified, 6 ounces 261 26 Tofu, firm, made with calcium sulfate, cup* 253 25 Tofu, soft, made with calcium sulfate, cup* 138 14 Bmqfv-ef-npf cereal, calcium-fortified, 1 cup 100-1,000 10-100 Turnip greens, fresh, boiled, cup 99 10 Kale, raw, chopped, 1 cup 100 10 Kale, fresh, cooked, 1 cup 94 9 [place] cabbage, bok marin, raw, shredded, 1 cup 74 7 Bread, white, 1 slice 73 7 Tortilla, corn, zxbrv-ct-rcux/marshall, one 6 diameter 46 5 Tortilla, flour, zzkcw-zw-xdwa/marshall, one 6 diameter 32 3 Bread, whole-wheat, [...] daily with a meal; Certain patients require 5943-9171 iu daily and in patients deficient in [...] bones. Studies show approximately 50% of [place] men and women are vitamin D deficient [...] is/osteo/info.htm http://ods.od.nih.gov/factsheets/vitam ind.asp National Institutes of Health: 2-964-250-BONE The Calcium Information Center: Review of Osteoporosis medications Medications that prevent [...] atypical and subtroch. fracture of femur with [place] [facility] use of bisphosphonates/alendronate and anti-resorptive agents, there [...] and answer all OP questions. At the [facility], we work as a team for your care, along with Nurse Practitioners, Physician Assistants, Nurses and Medical Assistants. It is a privilege and honor to serve you. Thank you for choosing [facility] for your healthcare. Sincerely, Nidia Westno APRN.AUTOMOTIVE PARTS CLERK documented in this encounter [facility] 05-09-2024 History of Present illness Narrative Follow [...] in patient's severe chronic Rheumatoid Arthritis. His medical concierge has switched him to Humira as he [...] IBD and intermittent steroid therapy from his medical concierge. Pharmacologic therapy is still indicated and recommended, [...] which included preparing to see the patient, lqhz-po-klaq patient care, completing clinical documentation, obtaining and/or reviewing separately obtained history, performing a medically appropriate examination, counseling and educating the patient/family/caregiver, and ordering medications, tests, or procedures. Nidia Weston APRN.JOSE Recommendations to share with Primary care physician: [...] the care of your patient. Nidia Weston APRN.AUTOMOTIVE PARTS CLERK cc Jose L Lackey MD, MD Patient Instructions -PLEASE NOTE THAT WE REVIEW ALL YOUR TEST RESULTS AT YOUR NEXT FOLLOW UP VISIT WITH YOU. IF ANY ABNORMAL LAB REQUIRES SOONER ATTENTION, WE WILL CONTACT YOU. -If you have signed up on Acumentrics, we will release your test results through [employer]. I wish you the best of health [...] and sulfasalazine, but discuss first with your medical concierge. Supplements recommended Vitamin B12: 500 to 1000 [...] track your nutrition and calcium intake on www.Lanzaloya.com.Hoods This provides macro and micronutrient intake and requirements. - You can track your calcium intake on Allyes Advertisement Network or any other calcium tracker of your [...] now for a cost, such as at www.Adjudica. -When eating a whole food plant based [...] track your nutrition and calcium intake on www.CLEARometer.Hoods This provides macro and micronutrient intake and [...] that features the Whole Plant Based diet, [place] over knives (see video online and visit website). Another movie that was recently released is: Eating You Alive (you can find it at [employer]) and The Game Changers movie Dr. Fauzia Ansari is a [facility] physician who is an expert in Whole Plant based diet. His website is Swink.tv. His research highlights the benefits of the Whole food plant based diet in reversing and preventing heart disease. Mrs. Ansari (his ) has a cookbook with many recipes on whole plant based food: The Prevent and Reverse Heart Disease cookbook. You can also consider reading his son, Eze Ansari's book: The Engine 2 cookbook Eze is a retired nanofabrication specialist who has helped many people get healthier by following the whole food plant based diet. Dr. Rock Velazco, has a website and free angélica to help get started on a whole plant based diet, at www.pcrm.org and you can log on for free for his 21-Day Kickstart with meals and recipes to follow for 21 days. There is also a free angélica for that. He has multiple free videos and YouTube, for example: https://youtu.be/ankDfvoD6z6 , https://youtu.be/LoMCTzxxu8u He has written multiple books, including Power [...] heart disease, acne, and other, his website: www.debra.Hoods Dr. Yayo Allred is a renowned validation scientist, who has studied and researched the benefits of the Whole plant based diet. He has also researched the adverse effects of animal proteins on health. He presents many of his research findings in his book The Shiro study. Dr. Gerber Becker has completed many research trials proving the reversal of diseases, such as heart disease and early prostate cancer, with healthy lifestyle and the Whole Plant based diet. Dr. Gerber Becker website is: www.dagoberto.Hoods His new book: Undo It, has evidence based information and guide to following this healthy lifestyle. Dr. Cody Dillon has dedicated a website and additional time to reviewing all food related articles and research and presents them in his power point presentation and on his website at: nutritionfacts.org which is all free. Dr. Dillon has multiple free videos and YouTube, for example https://Stackpop.Affinity Air Service/aSgNkhgVtks and https://youSkyfire Labs.be/lXXXygDRyBU. He has written multiple books including: How Not To and How Not To Diet He is now working on his next book: How Not To Age Dr. Danitza Dash (from the [facility]), has articles on the following website: Redeemia Also, you could find additional information on practical to follow recipes by reading or watching online and YouTube such as: Planer Feeder AJ, Cooking With Plants, The Vegan Corner (recipes from an [place] Planer Feeder), The Whole Foods Plant Based Cooking Show and visiting the provided websites for additional information on the whole plant based benefit and cooking recipes. You can also consider watching the vlogs of some of the plant based Athletes such as Fausto Ewing Derek on [facility]. Dr. Maryan Holguin (a psychiatrist who suffered [...] - Gentle Yoga Anyone Can Do Anywhere www.[employer]/yoga Also on youtube: yoga with Karlie 3- [...] or a higher dose. Raw: Garlic, Cilantro, Ivins nuts, Pumpkin seeds, [place] seeds and Flax seed powder have been reported to help with certain metal detoxification such as mercury. Upson-3 plant based rich foods are good anti-inflammatory [...] the Whole Plant Based Diet, by watching [place] over Knives movie and then review website. There are many other resources and educational information on the Whole plant based diet on the Internet and documentaries. There are other resources for wellness that you can also benefit from, such as the [facility] Wellness website, [facility] and includes Plant based and Mediterranean diet, yoga and meditation. Please avoid all dairy products. You could use non-dairy milk such as Flax milk, Cashew milk, Perry milk, Rice milk, Oat milk or Hemp [...] Osteoporosis Foundation) http://www.osteo.org/osteolinks.asp National Institutes of Health: 2-151-662-BONE The Calcium Information [place]: -Non-Dairy, Plant based Milk, can contain in1 glass up to 450 mg of calcium (300 to 450 mg) Exampled include Oat Milk, Flax Milk, Perry Milk, Cashew Milk, Soy Milk, Peas Milk general health and well being Examples of Food Sources of Calcium from [facility] Food Milligrams (mg) per serving Percent DV* Soymilk, calcium-fortified, 8 ounces 299 30 [place] juice, calcium-fortified, 6 ounces 261 26 Tofu, firm, made with calcium sulfate, cup* 253 25 Tofu, soft, made with calcium sulfate, cup* 138 14 Lwjyf-tn-mvh cereal, calcium-fortified, 1 cup 100-1,000 10-100 Turnip greens, fresh, boiled, cup 99 10 Kale, raw, chopped, 1 cup 100 10 Kale, fresh, cooked, 1 cup 94 9 [place] cabbage, bok marin, raw, shredded, 1 cup 74 7 Bread, white, 1 slice 73 7 Tortilla, corn, cwzyj-nv-bzlx/marshall, one 6 diameter 46 5 Tortilla, flour, volir-nq-aypb/marshall, one 6 diameter 32 3 Bread, whole-wheat, [...] daily with a meal; Certain patients require 3748-9663 iu daily and in patients deficient in [...] bones. Studies show approximately 50% of [place] men and women are vitamin D deficient [...] available from: www.nof.org (the national osteoporosis foundation) http://www.[facility].org/leesa is/osteo/info.htm http://ods.od.nih.gov/factsheets/vitam ind.asp National Institutes of Health: 7-082-765-BONE [facility] Calcium Information [place]: Review of Osteoporosis medications Medications that prevent [...] atypical and subtroch. fracture of femur with [place] [facility] use of bisphosphonates/alendronate and anti-resorptive agents, there [...] and answer all OP questions. At the [facility], we work as a team for your care, along with Nurse Practitioners, Physician Assistants, Nurses and Medical Assistants. It is a privilege and honor to serve you. Thank you for choosing The [facility] for your healthcare. Sincerely, Nidia Weston APRN.AUTOMOTIVE PARTS CLERK PAST MEDICAL HISTORY Diagnosis Date Monoclonal gammopathy [...] developed and its performance characteristics determined by [facility]'s [facility] ([facility] It has not been cleared or approved by the FDA. -[facility] is regulated under CLIA as qualified to [...] 147 53 - 334 mg/dL Final MPA Valdez, Serum Date Value Ref Range Status 08/19/2018 1,020 534 - 1,267 mg/dL Final MPA Lambda, Serum Date Value Ref Range Status 08/19/2018 551 253 - 653 mg/dL Final MPA Valdez/Lambda Ratio Date Value Ref Range Status 08/19/2018 [...] DATE OF EXAM: Sep 23 2022 10:03AM [facility] 0804 - BD DXA - AXIAL SKELETON / PROCEDURE REASON: multiple diagnoses * * * * Physician Interpretation * * * * EXAMINATION: DXA BONE DENSITOMETRY BD DXA - AXIAL SKELETON PATIENT DEMOGRAPHICS: Age: 57 years, Race: , Gender: Male SCANNER INFORMATION: DXA Model: Given.to W 201136A SITE SCANNED: Lumbar spine and left hip [...] machine for accurate comparison. FOR MORE INFORMATION: [facility] Metabolic Bone Disease: www.ccf.org/arthritis/osteo National Osteoporosis Foundation: www.nof.org International Society of Clinical Densitometry www.iscd.org Battery Checker: [id number] Transcribe Date/Time: Sep 23 2022 10:28A Dictated by : DARRIAN DUBON MD This examination was interpreted and the report reviewed and electronically signed by: DARRIAN DUBON MD on Sep 28 2022 6:46PM EST documented in this encounter [facility] 05-09-2024 Note HNO ID: [id number] Author: NIDIA WESTON APRN.CNP Service: ? Author [...] surgeries Has mul (more content not included)... [facility] 05-05-2024 Telephone encounter Note For chart: [place] 05/02/24 high esr 79 (normal<20mm/hr), normal vitamin D 51.4, cmp, creat 0.94, calcium 8.7, crp<0.5 (normal<0.5mg/dL); [facility] Work Phone: 05-05-2024 Miscellaneous Notes For chart: [place] 05/02/24 high esr 79 (normal<20mm/hr), normal vitamin D 51.4, cmp, creat 0.94, calcium 8.7, crp<0.5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 healthy lifestyle and the Whole Plant based diet. Dr. Gerber Becker website is: www.carmenSmartCloud.Hoods His new book: Undo It, has evidence [...] To Age Dr. Danitza Dash (from the [facility]), has articles on the following website: ABL Solutions.Hoods Also, you could find additional information on practical to follow recipes by reading or watching online and YouTube such as: Chef BELLE, Cooking With Plants, The Vegan Corner (recipes from an [place] Planer Feeder), The Whole Foods Plant Based Cooking Show and visiting the provided websites for additional information on the whole plant based benefit and cooking recipes. You can also consider watching the vlogs of some of the plant based Athletes such as Graeme Kamara, Agustin Lundy on [facility]. Dr. Maryan Holguin (a psychiatrist who suffered [...] - Gentle Yoga Anyone Can Do Anywhere www.[employer].Hoods/yoga Also on youtube: yoga with Karlie 3- [...] or a higher dose. Raw: Garlic, Cilantro, Ivins nuts, Pumpkin seeds, [place] seeds and Flax seed powder have been reported to help with certain metal detoxification such as mercury. Upson-3 plant based rich foods are good anti-inflammatory [...] the Whole Plant Based Diet, by watching [place] over We Are Hunted movie and then review website. There are many other resources and educational information on the Whole plant based diet on the Internet and documentaries. There are other resources for wellness that you can also benefit from, such as the [facility] Wellness website, [facility]org and includes Plant based and Mediterranean diet, yoga and meditation. Please avoid all dairy products. You could use non-dairy milk such as Flax milk, Cashew milk, Perry milk, Rice milk, Oat milk or Hemp [...] following resources: www.nof.org (National Osteoporosis Foundation) http://www.osteo.org/osteolinks.asp [place] Institutes of Health: 0-142-807-BONE [facility] Calcium Information [place]: -Non-Dairy, Plant based Milk, can contain in1 glass up to 450 mg of calcium (300 to 450 mg) Exampled include Oat Milk, Flax Milk, Perry Milk, Cashew Milk, Soy Milk, Peas Milk general health and well being Examples of Food Sources of Calcium from [facility] Food Milligrams (mg) per serving Percent DV* Soymilk, calcium-fortified, 8 ounces 299 30 [place] juice, calcium-fortified, 6 ounces 261 26 Tofu, firm, made with calcium sulfate, cup* 253 25 Tofu, soft, made with calcium sulfate, cup* 138 14 Ukwof-nt-pyl cereal, calcium-fortified, 1 cup 100-1,000 10-100 Turnip greens, fresh, boiled, cup 99 10 Kale, raw, chopped, 1 cup 100 10 Kale, fresh, cooked, 1 cup 94 9 [place] cabbage, bok marin, raw, shredded, 1 cup 74 7 Bread, white, 1 slice 73 7 Tortilla, corn, khdze-yd-rajb/marshall, one 6 diameter 46 5 Tortilla, flour, jocbf-mt-dznp/marshall, one 6 diameter 32 3 Bread, whole-wheat, [...] could acces this information online at: http://ods.od.nih.gov/factsheets/Calci -[facility]/ Vitamin D: Vitamin D3= cholecalciferol, available over the counter. Dose recommended 800 to 1000 iu daily with a meal; Certain patients require 0734-9616 iu daily and in patients deficient in [...] bones. Studies show approximately 50% of [place] men and women are vitamin D deficient [...] national osteoporosis foundation) http://www.[facility].org/arthgabriella is/osteo/info.htm http://ods.od.nih.gov/factsheets/vitam ind.asp [facility] of [facility]: 7-338-582-BONE [facility] Calcium Information [place]: At the [facility], we work as a team for your care, along with Nurse Practitioners, Physician Assistants, Nurses and Medical Assistants. It is a privilege and honor to serve you. Thank you for choosing [facility] for your healthcare. Sincerely, Nidia Weston APRN.AUTOMOTIVE PARTS CLERK documented in this encounter [facility] 05-04-2023 History of Present illness Narrative Follow [...] was there Goes back fitting denture 09/09 [facility] [phone] GI - colitis 03/23 Had colonoscopy - [...] in patient's severe chronic Rheumatoid Arthritis. His medical concierge has switched him to Humira as he [...] IBD and intermittent steroid therapy from his medical concierge. Pharmacologic therapy is still indicated and recommended, [...] if necessary, CC, NOF and ISCD and [facility]. PLAN: [facility] on 05/04/23 VITAMIN D 25 HYDROXY RENAL FUNCTION PANEL MONOCLONAL PROT UR W/INTERP Labs prior to next visit Reclast - You are on entyvio and sulfasalazine for your Ulcerative Colitis. These are also treating your Rheumatoid Arthritis. During infections you will need to hold the entyvio and sulfasalazine, but discuss first with your medical concierge. Supplements recommended Vitamin B12: 500 to 1000 [...] in the office. This medication is given technician terminal and repeater, indefinitely. Prolia should not be discontinued without [...] looked into transition therapy. Recent study from [facility] [place] Slim et al, 04/11/2020, reported one infusion [...] initiated in patients who have had an [place] or stroke in the preceding year. This [...] atypical and subtroch. fracture of femur with [facility] use of bisphosphonates/alendronate and anti-resorptive agents, there [...] the care of your patient. Nidia Weston APRN.[facility] cc Jose L Lackey MD, MD Patient Instructions -PLEASE NOTE THAT WE REVIEW ALL YOUR TEST RESULTS AT YOUR NEXT FOLLOW UP VISIT WITH YOU. IF ANY ABNORMAL LAB REQUIRES SOONER ATTENTION, WE WILL CONTACT YOU. -If you have signed up on Acumentrics, we will release your test results through Acumentrics. I wish you the best of health [...] and sulfasalazine, but discuss first with your medical concierge. Supplements recommended Vitamin B12: 500 to 1000 [...] track your nutrition and calcium intake on www.Allyes Advertisement Network This provides macro and micronutrient intake and requirements. - You can track your calcium intake on Allyes Advertisement Network or any other calcium tracker of your [...] now for a cost, such as at www.Adjudica. -When eating a whole food plant based [...] track your nutrition and calcium intake on www.Lanzaloya.com.Hoods This provides macro and micronutrient intake and [...] that features the Whole Plant Based diet, [place] over knives (see video online and visit website). Another movie that was recently released is: Eating You Alive (you can find it at [employer]) and The Starteed ChangeBA Insight movie Dr. Fauzia Ansari is a [facility] physician who is an expert in Whole Plant based diet. His website is Swink.tv. His research highlights the benefits of the Whole food plant based diet in reversing and preventing heart disease. Mrs. Ansari (his ) has a cookbook with many recipes on whole plant based food: The Prevent and Reverse Heart Disease cookbook. You can also consider reading his son, Eze Ansari's book: The Engine 2 cookbook Eze is a retired nanofabrication specialist who has helped many people get healthier by following the whole food plant based diet. Dr. Rock Velazco, has a website and free angélica to help get started on a whole plant based diet, at www.pcrm.org and you can log on for free for his 21-Day Kickstart with meals and recipes to follow for 21 days. There is also a free angélica for that. He has multiple free videos and YouTube, for example: https://youtu.Affinity [employer]/ovfAkogI2b2 , https://Stackpop.be/WxIFWzsju6j He has written multiple books, including Power [...] heart disease, acne, and other, his website: www.debra.Hoods Dr. Yayo Allred is a renowned validation scientist, who has studied and researched the benefits of the Whole plant based diet. He has also researched the adverse effects of animal proteins on health. He presents many of his research findings in his book The Shiro study. Dr. Gerber Becker has completed many research trials proving the reversal of diseases, such as heart disease and early prostate cancer, with healthy lifestyle and the Whole Plant based diet. Dr. Gerber Becker website is: www.carmenSmartCloud.Hoods His new book: Undo It, has evidence based information and guide to following this healthy lifestyle. Dr. Cody Dillon has dedicated a website and additional time to reviewing all food related articles and research and presents them in his power point presentation and on his website at: nutritionfacts.org which is all free. Dr. Dillon has multiple free videos and YouTube, for example https://Stackpop.[employer]/aSgNkhgVtks and https://Stackpop.[employer]/lXXXygDRyBU. He has written multiple books including: How Not To and How Not To Diet He is now working on his next book: How Not To Age Dr. Danitza Dash (from the [facility]), has articles on the following website: ABL Solutions.Hoods Also, you could find additional information on practical to follow recipes by reading or watching online and YouTube such as: Planer Feeder AJ, Cooking With Plants, The Vegan Corner (recipes from an [place] Planer Feeder), The Whole Foods Plant Based Cooking Show and visiting the provided websites for additional information on the whole plant based benefit and cooking recipes. You can also consider watching the vlogs of some of the plant based Athletes such as Graeme Kamara, Agustin Lundy on [employer]. Dr. Maryan Holguin (a psychiatrist who [...] - Gentle Yoga Anyone Can Do Anywhere www.[employer]/yoga Also on youtube: yoga with Karlie 3- [...] or a higher dose. Raw: Garlic, Cilantro, Ivins nuts, Pumpkin seeds, [place] seeds and Flax seed powder have been reported to help with certain metal detoxification such as mercury. Upson-3 plant based rich foods are good anti-inflammatory [...] the Whole Plant Based Diet, by watching [place] over We Are Hunted movie and then review website. There are many other resources and educational information on the Whole plant based diet on the Internet and documentaries. There are other resources for wellness that you can also benefit from, such as the [facility] Wellness website, [facility]org and includes Plant based and Mediterranean diet, yoga and meditation. Please avoid all dairy products. You could use non-dairy milk such as Flax milk, Cashew milk, Perry milk, Rice milk, Oat milk or Hemp [...] Osteoporosis Foundation) http://www.osteo.org/osteolinks.asp National Institutes of Health: 8-527-757-BONE The Calcium Information [place]: -Non-Dairy, Plant based Milk, can contain in1 glass up to 450 mg of calcium (300 to 450 mg) Exampled include Oat Milk, Flax Milk, Perry Milk, Cashew Milk, Soy Milk, Peas Milk general health and well being Examples of Food Sources of Calcium from [facility] Food Milligrams (mg) per serving Percent DV* Soymilk, calcium-fortified, 8 ounces 299 30 [place] juice, calcium-fortified, 6 ounces 261 26 Tofu, firm, made with calcium sulfate, cup* 253 25 Tofu, soft, made with calcium sulfate, cup* 138 14 Yrloi-ef-oct cereal, calcium-fortified, 1 cup 100-1,000 10-100 Turnip greens, fresh, boiled, cup 99 10 Kale, raw, chopped, 1 cup 100 10 Kale, fresh, cooked, 1 cup 94 9 [place] cabbage, bok marin, raw, shredded, 1 cup 74 7 Bread, white, 1 slice 73 7 Tortilla, corn, cahnz-eh-kzcr/marshall, one 6 diameter 46 5 Tortilla, flour, vkkxz-wp-iwqu/marshall, one 6 diameter 32 3 Bread, whole-wheat, [...] daily with a meal; Certain patients require 4989-0103 iu daily and in patients deficient in [...] bones. Studies show approximately 50% of [place] men and women are vitamin D deficient [...] is/osteo/info.htm http://ods.od.nih.gov/factsheets/vitam ind.asp National Institutes of Health: 9-165-230-BONE The Calcium Information [place]: At the [facility], we work as a team for your care, along with Nurse Practitioners, Physician Assistants, Nurses and Medical Assistants. It is a privilege and honor to serve you. Thank you for choosing [facility] for your healthcare. Sincerely, Nidia Weston APRN.AUTOMOTIVE PARTS CLERK PAST MEDICAL HISTORY Diagnosis Date Monoclonal gammopathy [...] in am, 3 noon, 2 pm), per medical concierge No current facility-administered medications for this visit. [...] developed and its performance characteristics determined by [facility] Path[facility] and Laboratory Medicine Advance ([facility]). It has not been cleared or approved by the FDA. -[facility] is regulated under CLIA as qualified to [...] 147 53 - 334 mg/dL Final MPA Valdez, Serum Date Value Ref Range Status 08/19/2018 1,020 534 - 1,267 mg/dL Final MPA Lambda, Serum Date Value Ref Range Status 08/19/2018 551 253 - 653 mg/dL Final MPA Valdez/Lambda Ratio Date Value Ref Range Status 08/19/2018 [...] , Gender: Male SCANNER INFORMATION: DXA Model: Given.to W [id number] SITE SCANNED: Lumbar spine and left hip [...] (L1-L3): 0.899 g/cm2, T-score -1.6, Lumbar spine: 2020: 0.861 g/cm2 No statistically significant change Lumbar spine: 2018: 0.845 g/cm2 Left Femoral Neck: 0.589 g/cm2, T-score -2.5, Z-score -1.6 Left Femoral Neck: 2020: 0.568 g/cm2 No statistically significant change Left Femoral Neck: 2018: 0.594 g/cm2 Left Total Hip: 0.671 g/cm2, T-score -2.4, Z-score -2.0 Left Total Hip: 2020: 0.645 g/cm2 No statistically significant change Left [...] www.nof.org International Society of Clinical Densitometry www.iscd.org Battery Checker: [id number] Transcribe Date/Time: Sep 23 2022 10:28A Dictated by : DARRIAN DUBON MD This examination was interpreted and the report reviewed and electronically signed by: DARRIAN DUBON MD on Sep 28 2022 6:46PM EST documented in this encounter [facility] 03-02-2023 Instructions Nidia Weston APRN.JOSE - 03/02/2023 11:10 AM EDT -PLEASE NOTE THAT WE REVIEW ALL YOUR TEST RESULTS AT YOUR NEXT FOLLOW UP VISIT WITH YOU. IF ANY ABNORMAL LAB REQUIRES SOONER ATTENTION, WE WILL CONTACT YOU. -If you have signed up on LawPivothart, we will release your test results through Ac[employer]rics. I wish you the best of health [...] and sulfasalazine, but discuss first with your medical concierge. Supplements recommended Vitamin B12: 500 to 1000 [...] track your nutrition and calcium intake on www.Lanzaloya.com.Hoods This provides macro and micronutrient intake and requirements. - You can track your calcium intake on CLEARometerSettleware or any other calcium tracker of your [...] now for a cost, such as at www.Adjudica. -When eating a whole food plant based [...] that features the Whole Plant Based diet, [place] over knives (see video online and visit website). Another movie that was recently released is: Eating You Alive (you can find it at C4M.Hoods) and The Game Changers movie Dr. Fauzia Ansari is a [facility] physician who is an expert in Whole Plant based diet. His website is Swink.tv. His research highlights the benefits of the Whole food plant based diet in reversing and preventing heart disease. Mrs. Ansari (his ) has a cookbook with many recipes on whole plant based food: The Prevent and Reverse Heart Disease cookbook. You can also consider reading his son, Eze Ansari's book: The Engine 2 cookbook Eze is a retired nanofabrication specialist who has helped many people get healthier by following the whole food plant based diet. Dr. Rock Velazco, has a website and free angélica to help get started on a whole plant based diet, at www.SeeFuture.Tu Closet Mi Closet and you can log on for free for his 21-Day Kickstart with meals and recipes to follow for 21 days. There is also a free angélica for that. He has multiple free videos and YouTube, for example: https://youEverplacesu.be/ajoIwmpF8z6 , https://youEverplacesu.be/BzSMNfaxv6i He has written multiple books, including Power [...] heart disease, acne, and other, his website: www.debra.Hoods Dr. Yayo Allred is a renowned validation scientist, who has studied and researched the benefits of the Whole plant based diet. He has also researched the adverse effects of animal proteins on health. He presents many of his research findings in his book The Shiro study. Dr. Gerber Becker has completed many research trials proving the reversal of diseases, such as heart disease and early prostate cancer, with healthy lifestyle and the Whole Plant based diet. Dr. Gerber Becker website is: www.carmenSmartCloud.Hoods His new book: Undo It, has evidence based information and guide to following this healthy lifestyle. Dr. Cody Dillon has dedicated a website and additional time to reviewing all food related articles and research and presents them in his power point presentation and on his website at: nutritionfacts.org which is all free. Dr. Dillon has multiple free videos and YouTube, for example https://[email or web address]/aSgNkhgVtks and https://[email or web address]/[email or web address]. He has written multiple books including: How Not To and How Not To Diet He is now working on his next book: How Not To Age Dr. Danitza Dash (from the [facility]), has articles on the following website: Redeemia Also, you could find additional information on practical to follow recipes by reading or watching online and YouTube such as: Planer Feeder AJ, Cooking With Plants, The Vegan Corner (recipes from an [place] Planer Feeder), The Whole Foods Plant Based Cooking Show and visiting the provided websites for additional information on the whole plant based benefit and cooking recipes. You can also consider watching the vlogs of some of the plant based Athletes such as Fausto Ewing Derek on [facility]. Dr. Maryan Holguin (a psychiatrist who suffered [...] - Gentle Yoga Anyone Can Do Anywhere www.[employer].Hoods/yoga Also on youtube: yoga with Karlie 3- [...] or a higher dose. Raw: Garlic, Cilantro, Ivins nuts, Pumpkin seeds, [place] seeds and Flax seed powder have been reported to help with certain metal detoxification such as mercury. Upson-3 plant based rich foods are good anti-inflammatory [...] the Whole Plant Based Diet, by watching [place] over Knives movie and then review website. There are many other resources and educational information on the Whole plant based diet on the Internet and documentaries. There are other resources for wellness that you can also benefit from, such as the [facility] Wellness website, [facility] and includes Plant based and Mediterranean diet, yoga and meditation. Please avoid all dairy products. You could use non-dairy milk such as Flax milk, Cashew milk, Perry milk, Rice milk, Oat milk or Hemp [...] following resources: www.nof.org (National Osteoporosis Foundation) http://www.osteo.org/osteolinks.asp [facility]: 2-762-622-BONE The Calcium Information [place]: -Non-Dairy, Plant based Milk, can contain in1 glass up to 450 mg of calcium (300 to 450 mg) Exampled include Oat Milk, Flax Milk, Perry Milk, Cashew Milk, Soy Milk, Peas Milk general health and well being Examples of Food Sources of Calcium from [facility] Food Milligrams (mg) per serving Percent DV* Soymilk, calcium-fortified, 8 ounces 299 30 [place] juice, calcium-fortified, 6 ounces 261 26 Tofu, firm, made with calcium sulfate, cup* 253 25 Tofu, soft, made with calcium sulfate, cup* 138 14 Uwzxm-zl-zsr cereal, calcium-fortified, 1 cup 100-1,000 10-100 Turnip greens, fresh, boiled, cup 99 10 Kale, raw, chopped, 1 cup 100 10 Kale, fresh, cooked, 1 cup 94 9 [place] cabbage, bok marin, raw, shredded, 1 cup 74 7 Bread, white, 1 slice 73 7 Tortilla, corn, bcupz-lb-jwer/marshall, one 6 diameter 46 5 Tortilla, flour, fkivw-yw-hnvs/marshall, one 6 diameter 32 3 Bread, whole-wheat, [...] daily with a meal; Certain patients require 8095-0238 iu daily and in patients deficient in [...] bones. Studies show approximately 50% of [place] men and women are vitamin D deficient [...] national osteoporosis foundation) http://www.[facility].org/arthrit is/osteo/info.htm http://ods.od.nih.gov/factsheets/vitam ind.asp [facility]: 4-997-400-BONE The Calcium Information [place]: At the [facility], we work as a team for your care, along with Nurse Practitioners, Physician Assistants, Nurses and Medical Assistants. It is a privilege and honor to serve you. Thank you for choosing [facility] for your healthcare. Sincerely, Nidia Weston APRN.JOSE documented in this encounter [facility] 03-02-2023 History of Present illness Narrative Follow [...] in patient's severe chronic Rheumatoid Arthritis. His medical concierge has switched him to Humira as he [...] IBD and intermittent steroid therapy from his medical concierge. Pharmacologic therapy is still indicated and recommended, [...] if necessary, CC, NOF and ISCD and [facility]. PLAN: No orders found for this visit on 03/02/23. Please continue on yout Vitamin D 5000 international units once daily with meals and your multivitamin - You are on Humira and sulfasalazine for your Ulcerative Colitis. These are also treating your Rheumatoid Arthritis. During infections you will need to hold the Humira and sulfasalazine, but discuss first with your medical concierge. Supplements recommended Vitamin B12: 500 to 1000 [...] in the office. This medication is given technician terminal and repeater, indefinitely. Prolia should not be discontinued without [...] looked into transition therapy. Recent study from [facility] [place] Slim et al, 04/11/2020, reported one infusion [...] initiated in patients who have had an [place] or stroke in the preceding year. This [...] atypical and subtroch. fracture of femur with [place] [facility] use of bisphosphonates/alendronate and anti-resorptive agents, there [...] the care of your patient. Nidia Weston APRN.AUTOMOTIVE PARTS CLERK cc Jose L Lackey MD, MD Patient Instructions -PLEASE NOTE THAT WE REVIEW ALL YOUR TEST RESULTS AT YOUR NEXT FOLLOW UP VISIT WITH YOU. IF ANY ABNORMAL LAB REQUIRES SOONER ATTENTION, WE WILL CONTACT YOU. -If you have signed up on [employer], we will release your test results through [employer]. I wish you the best of health [...] and sulfasalazine, but discuss first with your medical concierge. Supplements recommended Vitamin B12: 500 to 1000 [...] track your nutrition and calcium intake on www.Allyes Advertisement Network This provides macro and micronutrient intake and requirements. - You can track your calcium intake on [employer] or any other calcium tracker of your [...] now for a cost, such as at www.Adjudica. -When eating a whole food plant based [...] track your nutrition and calcium intake on www.CLEARometer.Hoods This provides macro and micronutrient intake and [...] that features the Whole Plant Based diet, [place] over knives (see video online and visit website). Another movie that was recently released is: Eating You Alive (you can find it at [employer]) and The Game Changers movie Dr. Fauzia Ansari is a [facility] physician who is an expert in Whole Plant based diet. His website is Swink.tv. His research highlights the benefits of the Whole food plant based diet in reversing and preventing heart disease. Mrs. Ansari (his ) has a cookbook with many recipes on whole plant based food: The Prevent and Reverse Heart Disease cookbook. You can also consider reading his son, Eze Ansari's book: The Engine 2 cookbook Eze is a retired nanofabrication specialist who has helped many people get healthier by following the whole food plant based diet. Dr. Rock Velazco, has a website and free angélica to help get started on a whole plant based diet, at www.pcrMyRepublic.org and you can log on for free for his 21-Day Kickstart with meals and recipes to follow for 21 days. There is also a free angélica for that. He has multiple free videos and YouTube, for example: https://youtu.be/[email or web address] , https://youtu.be/[email or web address] He has written multiple books, including InSample for the Brain, The Cheese Trap, Dr. Rock Velazco's Program for Reversing Diabetes, Your Body in Balance Dr. Anthony Carlson has shown the benefit of a starch based whole food plant based diet to his Rheumatoid Arthritis patients, as well as patient with diabetes II, hypertension, obesity, multiple sclerosis, heart disease, acne, and other, his website: www.SeeYourImpact.org.Hoods Dr. Yayo Allred is a renowned validation scientist, who has studied and researched the benefits of the Whole plant based diet. He has also researched the adverse effects of animal proteins on health. He presents many of his research findings in his book The Shiro study. Dr. Gerber Becker has completed many research trials proving the reversal of diseases, such as heart disease and early prostate cancer, with healthy lifestyle and the Whole Plant based diet. Dr. Gerber Becker website is: www.carmenSmartCloud.Hoods His new book: Undo It, has evidence [...] To Age Dr. Danitza Dash (from the [facility]), has articles on the following website: [employer].Hoods Also, you could find additional information on practical to follow recipes by reading or watching online and YouTube such as: Chef BELLE, Cooking With Plants, The Vegan Corner (recipes from an [place] Planer Feeder), The Whole Foods Plant Based Cooking Show and visiting the provided websites for additional information on the whole plant based benefit and cooking recipes. You can also consider watching the vlogs of some of the plant based Athletes such as Fausto Ewing Derek on [facility]. Dr. Maryan Holguin (a psychiatrist who suffered [...] - Gentle Yoga Anyone Can Do Anywhere www.[employer].Hoods/yoga Also on youtube: yoga with Karlie 3- [...] or a higher dose. Raw: Garlic, Cilantro, Ivins nuts, Pumpkin seeds, [place] seeds and Flax seed powder have been reported to help with certain metal detoxification such as mercury. Upson-3 plant based rich foods are good anti-inflammatory [...] the Whole Plant Based Diet, by watching [place] over We Are Hunted movie and then review website. There are many other resources and educational information on the Whole plant based diet on the Internet and documentaries. There are other resources for wellness that you can also benefit from, such as the [facility] Wellness website, [facility] and includes Plant based and Mediterranean diet, yoga and meditation. Please avoid all dairy products. You could use non-dairy milk such as Flax milk, Cashew milk, Perry milk, Rice milk, Oat milk or Hemp [...] following resources: www.nof.org (National Osteoporosis Foundation) http://www.osteo.org/osteolinks.asp [facility]: 5-195-982-BONE [facility] Calcium Information [place]: -Non-Dairy, Plant based Milk, can contain in1 glass up to 450 mg of calcium (300 to 450 mg) Exampled include Oat Milk, Flax Milk, Perry Milk, Cashew Milk, Soy Milk, Peas Milk general health and well being Examples of Food Sources of Calcium from [facility] Food Milligrams (mg) per serving Percent DV* Soymilk, calcium-fortified, 8 ounces 299 30 [place] juice, calcium-fortified, 6 ounces 261 26 Tofu, firm, made with calcium sulfate, cup* 253 25 Tofu, soft, made with calcium sulfate, cup* 138 14 Phhjg-pl-viv cereal, calcium-fortified, 1 cup 100-1,000 10-100 Turnip greens, fresh, boiled, cup 99 10 Kale, raw, chopped, 1 cup 100 10 Kale, fresh, cooked, 1 cup 94 9 [place] cabbage, bok marin, raw, shredded, 1 cup 74 7 Bread, white, 1 slice 73 7 Tortilla, corn, tsula-pr-omch/marshall, one 6 diameter 46 5 Tortilla, flour, jfhtm-ao-ozrj/marshall, one 6 diameter 32 3 Bread, whole-wheat, [...] could acces this information online at: http://ods.od.nih.gov/factsheets/Calci [facility]/ Vitamin D: Vitamin D3= cholecalciferol, available over the counter. Dose recommended 800 to 1000 iu daily with a meal; Certain patients require 0309-8258 iu daily and in patients deficient in [...] bones. Studies show approximately 50% of [place] men and women are vitamin D deficient [...] national osteoporosis foundation) http://www.[facility].org/arthgabriella is/osteo/info.htm http://ods.od.nih.gov/factsheets/vitam ind.asp [facility]: 6-265-218-BONE [facility] Calcium Information Center: At the [facility], we work as a team for your care, along with Nurse Practitioners, Physician Assistants, Nurses and Medical Assistants. It is a privilege and honor to serve you. Thank you for choosing [facility] for your healthcare. Sincerely, Nidia Weston APRN.AUTOMOTIVE PARTS CLERK PAST MEDICAL HISTORY Diagnosis Date Monoclonal gammopathy [...] mg subcutaneously every 2 weeks. Prescribed by Senior Housekeeper : Nel Lebron MD Previously prescr. by [...] in am, 3 noon, 2 pm), per medical concierge No current facility-administered medications for this visit. [...] developed and its performance characteristics determined by [facility] Pathology and Laboratory Medicine Advance ([facility]). It has not been cleared or approved by the FDA. -[facility] is regulated under CLIA as qualified to [...] 147 53 - 334 mg/dL Final MPA Valdez, Serum Date Value Ref Range Status 08/19/2018 1,020 534 - 1,267 mg/dL Final MPA Lambda, Serum Date Value Ref Range Status 08/19/2018 551 253 - 653 mg/dL Final MPA Valdez/Lambda Ratio Date Value Ref Range Status 08/19/2018 [...] , Gender: Male SCANNER INFORMATION: DXA Model: Given.to W 421038Y SITE SCANNED: Lumbar spine and left hip [...] machine for accurate comparison. FOR MORE INFORMATION: [facility] Metabolic Bone Disease: www.ccf.org/arthritis/osteo National Osteoporosis Foundation: www.nof.org International Society of Clinical Densitometry www.iscd.org Battery Checker: [id number] Transcribe Date/Time: Sep 23 2022 10:28A Dictated by : DARRIAN DUBON MD This examination was interpreted and the report reviewed and electronically signed by: DARRIAN DUBON MD on Sep 28 2022 6:46PM EST documented in this encounter [facility] 01-15-2023 Miscellaneous Notes Lm regarding results and recommendations. Please call patient Normal vit d Please continue current dose Received outside lab results from Zbigniew Huertaus ordered by Nidia Weston CNP -- 01/12/23 Vit D 40.2 documented in this encounter [facility] 01-11-2023 Instructions Nidia Weston APRN.CNP - 01/11/2023 7:57 PM EST -PLEASE NOTE THAT WE REVIEW ALL YOUR TEST RESULTS AT YOUR NEXT FOLLOW UP VISIT WITH YOU. IF ANY ABNORMAL LAB REQUIRES SOONER ATTENTION, WE WILL CONTACT YOU. -If you have signed up on [employer], we will release your test results through [employer]. I wish you the best of health [...] and sulfasalazine, but discuss first with your medical concierge. Supplements recommended Vitamin B12: 500 to 1000 [...] track your nutrition and calcium intake on www.Allyes Advertisement Network This provides macro and micronutrient intake and requirements. - You can track your calcium intake on [employer] or any other calcium tracker of your [...] now for a cost, such as at www.Adjudica. -When eating a whole food plant based [...] track your nutrition and calcium intake on www.Lanzaloya.com.Hoods This provides macro and micronutrient intake and [...] that features the Whole Plant Based diet, [place] over knives (see video online and visit website). Another movie that was recently released is: Eating You Alive (you can find it at [employer]) and The Starteed Change[employer] Insight movie Dr. Fauzia Ansari is a [facility] physician who is an expert in Whole Plant based diet. His website is Swink.tv. His research highlights the benefits of the Whole food plant based diet in reversing and preventing heart disease. Mrs. Ansari (his ) has a cookbook with many recipes on whole plant based food: The Prevent and Reverse Heart Disease cookbook. You can also consider reading his son, Eze Ansari's book: The Engine 2 cookbook Eze is a retired nanofabrication specialist who has helped many people get healthier by following the whole food plant based diet. Dr. Rock Velazco, has a website and free angélica to help get started on a whole plant based diet, at www.pcrm.org and you can log on for free for his 21-Day Kickstart with meals and recipes to follow for 21 days. There is also a free angélica for that. He has multiple free videos and YouTube, for example: https://youtu.be/[email or web address] , https://youtu.be/KcQNRtali9g He has written multiple books, including [employer] for the Brain, The Cheese Trap, Dr. Rock Velazco's Program for Reversing Diabetes, Your Body in Balance Dr. Anthony Carlson has shown the benefit of a starch based whole food plant based diet to his Rheumatoid Arthritis patients, as well as patient with diabetes II, hypertension, obesity, multiple sclerosis, heart disease, acne, and other, his website: www.SeeYourImpact.org.Hoods Dr. Yayo Allred is a renowned validation scientist, who has studied and researched the benefits of the Whole plant based diet. He has also researched the adverse effects of animal proteins on health. He presents many of his research findings in his book The Shiro study. Dr. Gerber Becker has completed many research trials proving the reversal of diseases, such as heart disease and early prostate cancer, with healthy lifestyle and the Whole Plant based diet. Dr. Gerber Becker website is: www.carmenSmartCloud.Hoods His new book: Undo It, has evidence [...] To Age Dr. Danitza Dash (from the [facility]), has articles on the following website: [employer].Hoods Also, you could find additional information on practical to follow recipes by reading or watching online and YouTube such as: Chef BELLE, Cooking With Plants, The Vegan Corner (recipes from an [place] Planer Feeder), The Whole Foods Plant Based Cooking Show and visiting the provided websites for additional information on the whole plant based benefit and cooking recipes. You can also consider watching the vlogs of some of the plant based Athletes such as Graeme Kamara, Agustin Lundy on [facility]. Dr. Maryan Holguin (a psychiatrist who suffered with lupus) has helped reverse her Systemic Lupus Erythematosus and helps many patients with their auto-immune diseases, based on her recommendations of the whole food plant based diet and the green smoothies. She has a facebook and website, and on youtube her channel is: Goodbyjose Lupus Some people have adverse effect or [...] - Gentle Yoga Anyone Can Do Anywhere www.[employer].Hoods/yoga Also on youtube: yoga with Karlie 3- [...] or a higher dose. Raw: Garlic, Cilantro, Ivins nuts, Pumpkin seeds, [place] seeds and Flax seed powder have been reported to help with certain metal detoxification such as mercury. Upson-3 plant based rich foods are good anti-inflammatory [...] the Whole Plant Based Diet, by watching [place] over We Are Hunted movie and then review website. There are many other resources and educational information on the Whole plant based diet on the Internet and documentaries. There are other resources for wellness that you can also benefit from, such as the [facility] Wellness website, [facility] and includes Plant based and Mediterranean diet, yoga and meditation. Please avoid all dairy products. You could use non-dairy milk such as Flax milk, Cashew milk, Perry milk, Rice milk, Oat milk or Hemp [...] Osteoporosis Foundation) http://www.osteo.org/osteolinks.asp National Institutes of Health: 5-344-275-BONE The Calcium Information [place]: -Non-Dairy, Plant based Milk, can contain in1 glass up to 450 mg of calcium (300 to 450 mg) Exampled include Oat Milk, Flax Milk, Perry Milk, Cashew Milk, Soy Milk, Peas Milk general health and well being Examples of Food Sources of Calcium from [facility] Food Milligrams (mg) per serving Percent DV* Soymilk, calcium-fortified, 8 ounces 299 30 [place] juice, calcium-fortified, 6 ounces 261 26 Tofu, firm, made with calcium sulfate, cup* 253 25 Tofu, soft, made with calcium sulfate, cup* 138 14 Bfxjv-nj-vbj cereal, calcium-fortified, 1 cup 100-1,000 10-100 Turnip greens, fresh, boiled, cup 99 10 Kale, raw, chopped, 1 cup 100 10 Kale, fresh, cooked, 1 cup 94 9 [place] cabbage, bok marin, raw, shredded, 1 cup 74 7 Bread, white, 1 slice 73 7 Tortilla, corn, qlati-wx-ucgr/marsahll, one 6 diameter 46 5 Tortilla, flour, dxgoq-ap-urzs/marshall, one 6 diameter 32 3 Bread, whole-wheat, [...] daily with a meal; Certain patients require 1155-8756 iu daily and in patients deficient in [...] bones. Studies show approximately 50% of [place] men and women are vitamin D deficient [...] is/osteo/info.htm http://ods.od.nih.gov/factsheets/vitam ind.asp National Institutes of Health: 4-602-970-BONE The Calcium Information Center: At the [facility], we work as a team for your care, along with Nurse Practitioners, Physician Assistants, Nurses and Medical Assistants. It is a privilege and honor to serve you. Thank you for choosing [facility] for your healthcare. Sincerely, Nidia Weston APRN.JOSE documented in this encounter [facility] 12-29-2022 History of Present illness Narrative Follow [...] in patient's severe chronic Rheumatoid Arthritis. His medical concierge has switched him to Humira as he [...] IBD and intermittent steroid therapy from his medical concierge. Pharmacologic therapy is still indicated and recommended, [...] if necessary, CC, NOF and ISCD and [facility]. PLAN: [facility] on 12/29/22 VITAMIN D 25 HYDROXY Please continue on yout Vitamin D 5000 international units once daily with meals and your multivitamin - You are on Humira and sulfasalazine for your Ulcerative Colitis. These are also treating your Rheumatoid Arthritis. During infections you will need to hold the Humira and sulfasalazine, but discuss first with your medical concierge. Supplements recommended Vitamin B12: 500 to 1000 [...] in the office. This medication is given [place] [facility], indefinitely. Prolia should not be discontinued without [...] looked into transition therapy. Recent study from [facility] [place] [facility] et al, 04/11/2020, reported one infusion [...] initiated in patients who have had an [place] or stroke in the preceding year. This [...] atypical and subtroch. fracture of femur with [place] [facility] use of bisphosphonates/alendronate and anti-resorptive agents, there [...] which included preparing to see the patient, tnft-fk-ihkk patient care, completing clinical documentation, obtaining and/or [...] the care of your patient. Nidia Weston APRN.[facility] cc Jose L Lackey MD, MD Patient Instructions -PLEASE NOTE THAT WE REVIEW ALL YOUR TEST RESULTS AT YOUR NEXT FOLLOW UP VISIT WITH YOU. IF ANY ABNORMAL LAB REQUIRES SOONER ATTENTION, WE WILL CONTACT YOU. -If you have signed up on [employer], we will release your test results through [employer]. I wish you the best of health [...] and sulfasalazine, but discuss first with your medical concierge. Supplements recommended Vitamin B12: 500 to 1000 [...] track your nutrition and calcium intake on www.Lanzaloya.com.Hoods This provides macro and micronutrient intake and requirements. - You can track your calcium intake on CLEARometer.Hoods or any other calcium tracker of your [...] now for a cost, such as at www.Adjudica. -When eating a whole food plant based [...] track your nutrition and calcium intake on www.Lanzaloya.com.Hoods This provides macro and micronutrient intake and [...] that features the Whole Plant Based diet, [place] over knives (see video online and visit website). Another movie that was recently released is: Eating You Alive (you can find it at [employer]) and The Starteed ChangeBA Insight movie Dr. Fauzia Ansari is a [facility] physician who is an expert in Whole Plant based diet. His website is Swink.tv. His research highlights the benefits of the Whole food plant based diet in reversing and preventing heart disease. Mrs. Ansari (his ) has a cookbook with many recipes on whole plant based food: The Prevent and Reverse Heart Disease cookbook. You can also consider reading his son, Eze Ansari's book: The Engine 2 cookbook Eze is a retired nanofabrication specialist who has helped many people get healthier by following the whole food plant based diet. Dr. Rock Velazco, has a website and free angélica to help get started on a whole plant based diet, at www.pcrm.org and you can log on for free for his 21-Day Kickstart with meals and recipes to follow for 21 days. There is also a free angélica for that. He has multiple free videos and YouTube, for example: https://youSkyfire Labs.Affinity Air Service/ykbPawgT8i5 , https://Stackpop.be/[email or web address] He has written multiple books, including Power [...] heart disease, acne, and other, his website: www.debra.Hoods Dr. Yayo Allred is a renowned validation scientist, who has studied and researched the benefits of the Whole plant based diet. He has also researched the adverse effects of animal proteins on health. He presents many of his research findings in his book The Shiro study. Dr. Gerber Becker has completed many research trials proving the reversal of diseases, such as heart disease and early prostate cancer, with healthy lifestyle and the Whole Plant based diet. Dr. Gerber Becker website is: www.[email or web address].Hoods His new book: Undo It, has evidence based information and guide to following this healthy lifestyle. Dr. Cody Dillon has dedicated a website and additional time to reviewing all food related articles and research and presents them in his power point presentation and on his website at: nutritionfacts.org which is all free. Dr. Dillon has multiple free videos and YouTube, for example https://Stackpop.be/aSgNkhgVtks and https://Stackpop.be/lXXXygDRyBU. He has written multiple books including: How Not To and How Not To Diet He is now working on his next book: How Not To Age Dr. Danitza Dash (from the [facility]), has articles on the following website: [employer].Hoods Also, you could find additional information on practical to follow recipes by reading or watching online and YouTube such as: Planer Feeder AJ, Cooking With Plants, The Vegan Corner (recipes from an [place] Planer Feeder), The Whole Foods Plant Based Cooking Show and visiting the provided websites for additional information on the whole plant based benefit and cooking recipes. You can also consider watching the vlogs of some of the plant based Athletes such as Graeme Kamara, Fausto Marmolejo, Agustin on [facility]. Dr. Marayn Holguin (a psychiatrist who suffered with lupus) [...] - Gentle Yoga Anyone Can Do Anywhere www.Panacela Labs/yoga Also on youtube: yoga with Karlie 3- [...] or a higher dose. Raw: Garlic, Cilantro, Ivins nuts, Pumpkin seeds, [place] seeds and Flax seed powder have been reported to help with certain metal detoxification such as mercury. Upson-3 plant based rich foods are good anti-inflammatory [...] the Whole Plant Based Diet, by watching [place] over We Are Hunted movie and then review website. There are many other resources and educational information on the Whole plant based diet on the Internet and documentaries. There are other resources for wellness that you can also benefit from, such as the [facility] Wellness website, [facility]org and includes Plant based and Mediterranean diet, yoga and meditation. Please avoid all dairy products. You could use non-dairy milk such as Flax milk, Cashew milk, Perry milk, Rice milk, Oat milk or Hemp [...] Osteoporosis Foundation) http://www.osteo.org/osteolinks.asp National Institutes of Health: 4-587-480-BONE The Calcium Information [place]: -Non-Dairy, Plant based Milk, can contain in1 glass up to 450 mg of calcium (300 to 450 mg) Exampled include Oat Milk, Flax Milk, Perry Milk, Cashew Milk, Soy Milk, Peas Milk general health and well being Examples of Food Sources of Calcium from [facility] Food Milligrams (mg) per serving Percent DV* Soymilk, calcium-fortified, 8 ounces 299 30 [place] juice, calcium-fortified, 6 ounces 261 26 Tofu, firm, made with calcium sulfate, cup* 253 25 Tofu, soft, made with calcium sulfate, cup* 138 14 Zexcs-gp-abh cereal, calcium-fortified, 1 cup 100-1,000 10-100 Turnip greens, fresh, boiled, cup 99 10 Kale, raw, chopped, 1 cup 100 10 Kale, fresh, cooked, 1 cup 94 9 [place] cabbage, bok marin, raw, shredded, 1 cup 74 7 Bread, white, 1 slice 73 7 Tortilla, corn, agsyv-dd-aieu/marshall, one 6 diameter 46 5 Tortilla, flour, anqpe-cx-qyzi/marshall, one 6 diameter 32 3 Bread, whole-wheat, [...] daily with a meal; Certain patients require 8681-9490 iu daily and in patients deficient in [...] bones. Studies show approximately 50% of [place] men and women are vitamin D deficient [...] available from: www.nof.org (the national osteoporosis foundation) http://www.[facility].org/arthrifay is/osteo/info.htm http://ods.od.nih.gov/factsheets/vitam ind.asp National Institutes of Health: 8-324-081-BONE The Calcium Information Center: At the [facility], we work as a team for your care, along with Nurse Practitioners, Physician Assistants, Nurses and Medical Assistants. It is a privilege and honor to serve you. Thank you for choosing [facility] for your healthcare. Sincerely, Nidia Weston APRN.AUTOMOTIVE PARTS CLERK PAST MEDICAL HISTORY Diagnosis Date Monoclonal gammopathy [...] mg subcutaneously every 2 weeks. Prescribed by Senior Housekeeper : Nel Lebron MD Previously prescr. by [...] in am, 3 noon, 2 pm), per medical concierge No current facility-administered medications for this visit. [...] developed and its performance characteristics determined by [facility] Path[facility] and Laboratory Medicine Advance ([facility]). It has not been cleared or approved by the FDA. -[facility] is regulated under CLIA as qualified to [...] 147 53 - 334 mg/dL Final MPA Valdez, Serum Date Value Ref Range Status 08/19/2018 1,020 534 - 1,267 mg/dL Final MPA Lambda, Serum Date Value Ref Range Status 08/19/2018 551 253 - 653 mg/dL Final MPA Valdez/Lambda Ratio Date Value Ref Range Status 08/19/2018 [...] Sep 23 2022 10:03AM NELLA 0804 - DXA - AXIAL SKELETON / PROCEDURE REASON: multiple diagnoses * * * * Physician Interpretation * * * * EXAMINATION: DXA BONE DENSITOMETRY BD DXA - AXIAL SKELETON PATIENT DEMOGRAPHICS: Age: 57 years, Race: , Gender: Male SCANNER INFORMATION: DXA Model: Given.to W [id number] SITE SCANNED: Lumbar spine and left hip [...] machine for accurate comparison. FOR MORE INFORMATION: [facility]osis [facility] Metabolic Bone Disease: www.ccf.org/arthritis/osteo National Osteoporosis Foundation: www.nof.org International Society of Clinical Densitometry www.iscd.org Battery Checker: [id number] Transcribe Date/Time: Sep 23 2022 10:28A Dictated by : DARRIAN DUBON MD This examination was interpreted and the report reviewed and electronically signed by: DARRIAN DUBON MD on Sep 28 2022 6:46PM EST documented in this encounter [facility] 09-23-2022 History of Present illness Narrative Radiology [...] 2022 9:54 AM documented in this encounter [facility] 02-10-2022 Miscellaneous Notes Pt aware. Estefanía Ferraro [...] you kindly, fa documented in this encounter [facility] 08-22-2020 History of Present illness Narrative Radiology [...] 2020 10:20 AM documented in this encounter [facility] Evaluation note Diagnosis Rheumatoid arthritis 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)- Primary Vitamin D deficiency Unspecified vitamin D deficiency Encounter to discuss test results Other specified counseling Encounter for medication review and counseling Other specified counseling Counseling on health promotion and disease prevention Other specified counseling Other osteoporosis without current pathological fracture [facility] Diagnosis Rheumatoid arthritis 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)- Primary Encounter to discuss test results Other specified counseling Counseling on health promotion and disease prevention Other specified counseling Ulcerative pancolitis (HCC) Dowell ulcerative (chronic) colitis Other osteoporosis without current pathological fracture [facility] Diagnosis Rheumatoid arthritis 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)- Primary Encounter to discuss test results Other specified counseling Counseling on health promotion and disease prevention Other specified counseling Ulcerative pancolitis (HCC) Dowell ulcerative (chronic) colitis Vitamin D deficiency Unspecified vitamin D deficiency On sulfasalazine therapy Encounter for medication review and counseling Other specified counseling Other osteoporosis without current pathological fracture Elevated serum immunoglobulin free light chain level Other nonspecific findings on examination of blood [facility] Diagnosis Seropositive rheumatoid arthritis (HCC) Rheumatoid arthritis Other osteoporosis without current pathological fracture Chronic pain of left ankle Ankle deformity, left Pes planus, unspecified laterality Other secondary osteoarthritis of multiple sites [facility] Diagnosis Rheumatoid arthritis 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) Other osteoporosis without current pathological fracture High risk for hip fracture Other specified conditions influencing health status Vitamin D deficiency, hx Unspecified vitamin D deficiency documented [facility] this [facility]* Diagnosis Other osteoporosis without current pathological fracture High risk for hip fracture Other specified conditions influencing health status Bone loss Other disorders of bone and cartilage Vitamin D deficiency, hx Unspecified vitamin D deficiency [facility]* Diagnosis Elevated alkaline phosphatase level- Primary Other nonspecific abnormal serum enzyme levels documented in this encounter [facility] note* Diagnosis Rheumatoid arthritis 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) [facility] Diagnosis Rheumatoid arthritis 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)- Primary Vitamin D deficiency Unspecified vitamin D deficiency Other osteoporosis without current pathological fracture Encounter for medication review and counseling Other specified counseling Rheumatoid arthritis 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) [facility]* Diagnosis Foreign body of left hand, sequela- Primary [facility]* Diagnosis Rheumatoid arthritis 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)- Primary Vitamin D deficiency Unspecified vitamin D deficiency Other osteoporosis without current pathological fracture [facility]* Diagnosis Seropositive rheumatoid arthritis (HCC)- Primary Rheumatoid arthritis Rheumatoid arthritis 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) On sulfasalazine therapy Ulcerative pancolitis (HCC) Dowell ulcerative (chronic) colitis Other osteoporosis without current pathological fracture History of bisphosphonate therapy Personal history of other drug therapy Counseling on health promotion and disease prevention Other specified counseling [facility]* Diagnosis Other osteoporosis without current pathological fracture- Primary documented in this encounter [facility] for referral (narrative)* Diagnostic Procedure Only (Routine) - Closed Specialty Diagnoses / Procedures Referred By Contac t Referred To Contact XR IMAGING Diagnoses Rheumatoid arthritis 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) Procedures XR HAND GENERAL 3V PA/LAT/OBL BILATERAL RADEX HAND MINIMUM 3 VIEWS Nidia Weston, [employer]GAL INTER[employer]HIP.AUTOMOTIVE PARTS CLERK [address] [place] [address] [place] [address] Referral ID Status Reason Start Date Expiration Date V isits Requested Visits Authorized [id number] Closed Auto-Generate d Referral 03/14/2024 11/15/2024 1 1 [facility] for referral (narrative)* Diagnostic Procedure Only (Routine) - Closed Specialty Diagnoses / Procedures Referred By Contac t Referred To Contact XR IMAGING Diagnoses Rheumatoid arthritis 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) Procedures XR HAND GENERAL 3V PA/LAT/OBL BILATERAL RADEX HAND MINIMUM 3 VIEWS Nidia Weston APRN.AUTOMOTIVE PARTS CLERK [address] [place] [address] [place] [address] Referral ID Status Reason Start Date Expiration Date V isits Requested Visits Authorized [id number] Closed Auto-Generate d Referral 03/14/2024 11/15/2024 1 1 * Diagnostic Procedure Only (Routine) - Pending Review Specialty Diagnoses / Procedures Referred By Contac t Referred To Contact XR IMAGING Diagnoses Rheumatoid arthritis 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) Procedures XR HAND GENERAL 3V PA/LAT/OBL BILATERAL RADEX HAND MINIMUM 3 VIEWS Nidia Weston [employer]GAL [employer]HIP.AUTOMOTIVE PARTS CLERK [address] [place] [address] [place] [address] Referral ID Status Reason Start Date Expiration Date Visits Requested Visits Authorized [id number] Pending Review Auto-Generat ed Referral 04/13/2024 04/13/2025 1 1 [facility] for referral (narrative)* Diagnostic Procedure Only (Routine) - Pending Review Specialty Diagnoses / Procedures Referred By Contac t Referred To Contact XR IMAGING Diagnoses Seropositive rheumatoid arthritis (HCC) Ulcerative pancolitis (HCC) Other osteoporosis without current pathological fracture History of bisphosphonate therapy Procedures DXA-AXIAL SKELETON DXA BONE DENSITY STUDY 1/> SITES AXIAL SKEL Al-Ashkar, Feyrouz, MD [address] [place] [address] [place] [address] Referral ID Status Reason Start Date Expiration Date Visits Requested Visits Authorized [id number] Pending Review Auto-Generat ed Referral 11/04/2025 1 1 [facility] for visit Narrative* Diagnostic Procedure Only (Routine) - Closed Specialty Diagnoses / Procedures Referred By Contac t Referred To Contact XR IMAGING Diagnoses Rheumatoid arthritis 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) Procedures XR HAND GENERAL 3V PA/LAT/OBL BILATERAL RADEX HAND MINIMUM 3 VIEWS Nidia Weston, PAR[employer]GAL INTER[employer]HIP.AUTOMOTIVE PARTS CLERK [address] [place] [address] [place] [address] Referral ID Status Reason Start Date Expiration Date V isits Requested Visits Authorized [id number] Closed Auto-Generate d Referral 03/14/2024 11/15/2024 1 1 [facility] Advance Directives No Advanced Directives Records Found Advance Directive Response Recorded Date/ Time Advance [...] phosphatase level Procedures CONSULT TO HEPATOLOGY OFFICE/OUTPATIENT NEW HIGH MDM 60 MINUTES Nidia Weston, [employer]GAL INTERNSHIP.AUTOMOTIVE PARTS CLERK [address] [place] [address] Referral ID Status Reason Start Date Expiration Date Visits Requested Visits Authorized [id number] Authorized PCP Requested Referral 02/11/2024 02/10/2025 1 1 Specialty Diagnoses / Procedures Referred By Hanna aponte Referred To Contact Orthopedics Diagnoses Foreign body of left hand, sequela Procedures CONSULT TO ORTHOPAEDICS OFFICE/OUTPATIENT [facility] 60 MINUTES Nidia Weston, [employer]GAL INTER[employer]HIP.AUTOMOTIVE PARTS CLERK [address] [place] [address] Referral ID Status Reason Start Date Expiration Date Visits Requested Visits Authorized [id number] Authorized PCP Requested Referral 04/11/2024 04/11/2025 1 [...] section and content) DATE CREATED AUTHOR 11/30/2021 [facility] DATE CREATED AUTHOR AUTHOR'S ORGANIZ ATION 02/20/2023 [facility] DATE CREATED AUTHOR AUTHOR'S ORGANIZ ATION 05/08/2024 [facility] dical [facility] DATE CREATED AUTHOR AUTHOR'S ORGANIZ ATION 06/09/2024 [facility] DATE CREATED AUTHOR AUTHOR'S ORGANIZ ATION 06/18/2024 [facility] DATE CREATED AUTHOR AUTHOR'S ORGANIZ ATION 11/29/2024 [facility] DATE CREATED AUTHOR AUTHOR'S ORGANIZ ATION 12/15/2024 [facility] DATE CREATED AUTHOR AUTHOR'S ORGANIZ ATION 12/16/2024 [facility] DATE CREATED AUTHOR AUTHOR'S ORGANIZ ATION 12/17/2024 [facility] DATE CREATED AUTHOR AUTHOR'S ORGANIZ ATION 12/19/2024 [facility] Source Comments (unrecognize d section and content) In the event this informatio n is protected by the Federal Confidentiality of Alcohol and Drug Abuse Patient Records regulations: The Federal rules restrict any use of the information to criminally investigate or prosecute any alcohol or drug abuse patient.[facility] the event this information is protected by the Federal Confidentiality of Alcohol and Drug Abuse Patient Records regulations: The Federal rules restrict any use of the information to criminally investigate or prosecute any alcohol or drug abuse patient.[facility] the event this information is protected by the Federal Confidentiality of Alcohol and Drug Abuse Patient Records regulations: The Federal rules restrict any use of the information to criminally investigate or prosecute any alcohol or drug abuse patient.[facility] the event this information is protected by the Federal Confidentiality of Alcohol and Drug Abuse Patient Records regulations: The Federal rules restrict any use of the information to criminally investigate or prosecute any alcohol or drug abuse patient.[facility] the event this information is protected by the Federal Confidentiality of Alcohol and Drug Abuse Patient Records regulations: The Federal rules restrict any use of the information to criminally investigate or prosecute any alcohol or drug abuse patient.[facility] the event this information is protected by the Federal Confidentiality of Alcohol and Drug Abuse Patient Records regulations: The Federal rules restrict any use of the information to criminally investigate or prosecute any alcohol or drug abuse patient.[facility] the event this information is protected by the Federal Confidentiality of Alcohol and Drug Abuse Patient Records regulations: The Federal rules restrict any use of the information to criminally investigate or prosecute any alcohol or drug abuse patient.[facility] Rehabilitation[facility] the event this information is protected by the Federal Confidentiality of Alcohol and Drug Abuse Patient Records regulations: The Federal rules restrict any use of the information to criminally investigate or prosecute any alcohol or drug abuse patient.[facility] Rehabilitation[facility] the event this information is protected by the Federal Confidentiality of Alcohol and Drug Abuse Patient Records regulations: The Federal rules restrict any use of the information to criminally investigate or prosecute any alcohol or drug abuse patient.[facility] Rehabilitation[facility] the event this information is protected by the Federal Confidentiality of Alcohol and Drug Abuse Patient Records regulations: The Federal rules restrict any use of the information to criminally investigate or prosecute any alcohol or drug abuse patient.[facility] Rehabilitation[facility] the event this information is protected by the Federal Confidentiality of Alcohol and Drug Abuse Patient Records regulations: The Federal rules restrict any use of the information to criminally investigate or prosecute any alcohol or drug abuse patient.[facility] Rehabilitation[facility] the event this information is protected by the Federal Confidentiality of Alcohol and Drug Abuse Patient Records regulations: The Federal rules restrict any use of the information to criminally investigate or prosecute any alcohol or drug abuse patient.[facility] Rehabilitation[facility] the event this information is protected by the Federal Confidentiality of Alcohol and Drug Abuse Patient Records regulations: The Federal rules restrict any use of the information to criminally investigate or prosecute any alcohol or drug abuse patient.[facility] Rehabilitation[facility] the event this information is protected by the Federal Confidentiality of Alcohol and Drug Abuse Patient Records regulations: The Federal rules restrict any use of the information to criminally investigate or prosecute any alcohol or drug abuse patient.[facility] Rehabilitation[facility] the event this information is protected by the Federal Confidentiality of Alcohol and Drug Abuse Patient Records regulations: The Federal rules restrict any use of the information to criminally investigate or prosecute any alcohol or drug abuse patient.[facility] Rehabilitation[facility] the event this information is protected by the Federal Confidentiality of Alcohol and Drug Abuse Patient Records regulations: The Federal rules restrict any use of the information to criminally investigate or prosecute any alcohol or drug abuse patient.[facility] Rehabilitation[facility] the event this information is protected by the Federal Confidentiality of Alcohol and Drug Abuse Patient Records regulations: The Federal rules restrict any use of the information to criminally investigate or prosecute any alcohol or drug abuse patient.[facility] RehabilitationIn the event this information is protected by the Federal Confidentiality of Alcohol and Drug Abuse Patient Records regulations: The Federal rules restrict any use of the information to criminally investigate or prosecute any alcohol or drug abuse patient.[facility] Reason for Visit (unrecogniz ed section and [...] INJECTION, ZOLEDRONIC ACID, 1 MG Nidia Weston, [employer] INTER[employer]IP.AUTOMOTIVE PARTS CLERK [address] [place] [address] Rhe[facility] Infusion [facility] Maria De Jesus [address] [place] [address] Referral ID Status Reason Start Date Expiration Date V isits Requested Visits Authorized [id number] Authorized 04/12/2024 04/12/2025 1 1 Care Teams (unrecognized sec tion and content) Clinical Medical Transcriptionist Relationship Specialty Start Date End Date Jose L Lackey MD PCP - General Family Practice 01/18/14 Clinical Medical Transcriptionist Relationship Specialty Start Date End Date Jose L Lackey MD PCP - General Family Medicine 01/18/14 Clinical Medical Transcriptionist Relationship Specialty Start Date End Date Jose L Lackey MD PCP - General Family Medicine 01/18/14 Clinical Medical Transcriptionist Relationship Specialty Start Date End Date Jose L Lackey MD PCP - General Family Medicine 01/18/14 Clinical Medical Transcriptionist Relationship Specialty Start Date End Date Jose L Lackey MD PCP - General Family Medicine 01/18/14 Clinical Medical Transcriptionist Relationship Specialty Start Date End Date Jose L Lackey MD PCP - General Family Medicine 01/18/14 Clinical Medical Transcriptionist Relationship Specialty Start Date End Date Jose L Lackey MD PCP - General Family Medicine 01/18/14 Clinical Medical Transcriptionist Relationship Specialty Start Date End Date Jose L Lackey MD PCP - General Family Medicine 01/18/14 Clinical Medical Transcriptionist Relationship Specialty Start Date End Date Jose L Lackey MD PCP - General Family Medicine 01/18/14 Clinical Medical Transcriptionist Relationship Specialty Start Date End Date Jose L Lackey MD PCP - General Family Medicine 01/18/14 Clinical Medical Transcriptionist Relationship Specialty Start Date End Date Jose L Lackey MD PCP - [facility] 01/18/14 Clinical Medical Transcriptionist Relationship Specialty Start Date End Date Jose L Lackey MD PCP - [facility] 01/18/14 Clinical Medical Transcriptionist Relationship Specialty Start Date End Date Jose L Lackey MD PCP - [facility] 01/18/14 Clinical Medical Transcriptionist Relationship Specialty Start Date End Date Jose L Lackey MD PCP - [facility] 01/18/14 FOR RECORDS PERTAINING TO PATIENTS [...] BE BASED ON THE PRIMARY CLINICAL RECORDS. [facility] [employer] [facility]. provides no warranty or guarantee of the accuracy or completeness of information in this document.
[2024-12-21 10:24] LABS: Basophils Percent Auto 0.3 % (0.2-2.0); Hematocrit 38.7 % (42.0-54.0); Hemoglobin 12.5 g/dL (14.0-18.0); Immature Granulocytes Abs Auto 0.01 10^3/uL (0.00-0.03); Immature Granulocytes Pct Auto 0.2 % (0.0-0.5); Lymphocytes Absolute Auto 1.6 10^3/uL (1.2-3.8); Lymphocytes Percent Auto 26.5 % (20.5-60.0); Mean Corpuscular HGB Conc 32.3 g/dL (29.9-35.2); Mean Corpuscular Hemoglobin 30.7 pg (25.9-34.0); Mean Corpuscular Volume 95.1 fL (80.0-94.0); Monocytes Absolute Auto 0.5 10^3/uL (0.3-0.8); Neutrophils Absolute Auto 3.8 10^3/uL (1.4-6.5); Platelet Count 248 10^3/uL (150-450); Red Blood Count 4.07 10^6/uL (4.70-6.10); Red Cell Distribution Width 14.9 % (11.0-15.0); White Blood Count 5.9 10^3/uL (4.0-11.0)
[2024-12-21 11:09] LABS: Alanine Aminotransferase 30 U/L (16-63); Albumin Level 3.5 g/dL (3.4-5.0); Alkaline Phosphatase 111 U/L (46-116); Anion Gap 11.2; Aspartate Amino Transferase 23 U/L (15-37); BUN Creatinine Ratio 14.7; Bilirubin Total 0.3 mg/dL (0.2-1.0); Calcium 8.9 mg/dL (8.5-10.1); Carbon Dioxide 29.4 mmol/L (21.0-32.0); Chloride 107 mmol/L (98-107); Chol HDL Ratio 1.8; Cholesterol 143 mg/dL (<=200); Estimated GFR (African America >60 (>=60 mL/min/1.73m^2); Estimated GFR (Non-African Ame >60 (>=60 mL/min/1.73m^2); Free T3 2.32 pg/mL (2.18-3.98); Globulin 3.5 g/dL; Glucose 114 mg/dL (74-106); HDL Cholesterol 80 mg/dL (40-60); Potassium 4.6 mmol/L (3.5-5.1); Sodium 143 mmol/L (136-145); Triglycerides 31 mg/dL (<=150); VLDL CHOLESTEROL 6.2 mg/dL
[2024-12-21 11:11] LABS: Prostate Specific Antigen Scrn 2.84 ng/mL (<=4.00)
[2024-12-21 11:17] LABS: Estimated Average Glucose 100 mg/dL; Glycohemoglobin A1C 5.1 % (4.5-6.2)
== END 2024-12-21 09:25 | disposition home or self-care (01) ==
LOC: LAB 09:27
PROVIDERS: PCP Family Medicine; Visit Provider Family Medicine
DX: Z00.00 Encounter for general adult medical examination without abnormal findings (principal); Z12.5 Encounter for screening for malignant neoplasm of prostate; E78.5 Hyperlipidemia, unspecified; E03.9 Hypothyroidism, unspecified; R73.09 Other abnormal glucose; R53.83 Other fatigue
CPT/HCPCS: 36415; 80053; 80061; 83036; 84436; 84443; 84481; 85025; G0103

== ENCOUNTER 2025-01-09 07:38 | Outpatient (RCR) | payer OTHER, SELFPAY ==
[2025-01-09 08:19] VITALS: BP 124/83; PULSE 87; TEMP 36.6; O2SAT 97
[2025-01-09] MEDS: IRON SUCROSE COMPLEX 300 MG in 0.9 % SODIUM CHLORIDE 250 ML 176.667 MG IV (08:23)
== END 2025-01-09 14:33 | disposition home or self-care (01) ==
LOC: INF 07:38
PROVIDERS: PCP Family Medicine; Visit Provider Family Medicine
DX: D50.9 Iron deficiency anemia, unspecified (principal)
CPT/HCPCS: 96365; 96366; J1756

== ENCOUNTER 2025-01-16 07:28 | Outpatient (RCR) | payer OTHER, SELFPAY ==
[2025-01-16 08:20] VITALS: BP 121/76; PULSE 87; TEMP 36.5; O2SAT 97
[2025-01-16 08:29] LABS: Basophils Percent Auto 0.4 % (0.2-2.0); Hematocrit 40.9 % (42.0-54.0); Hemoglobin 13.2 g/dL (14.0-18.0); Immature Granulocytes Abs Auto 0.02 10^3/uL (0.00-0.03); Immature Granulocytes Pct Auto 0.2 % (0.0-0.5); Lymphocytes Absolute Auto 2.4 10^3/uL (1.2-3.8); Lymphocytes Percent Auto 28.4 % (20.5-60.0); Mean Corpuscular HGB Conc 32.3 g/dL (29.9-35.2); Mean Corpuscular Hemoglobin 30.8 pg (25.9-34.0); Mean Corpuscular Volume 95.3 fL (80.0-94.0); Mean Platelet Volume 8.7 fL (9.5-13.5); Monocytes Absolute Auto 0.9 10^3/uL (0.3-0.8); Monocytes Percent Auto 10.7 % (1.7-12.0); Neutrophils Absolute Auto 5.1 10^3/uL (1.4-6.5); Neutrophils Percent Auto 60.3 % (43.0-75.0); Platelet Count 318 10^3/uL (150-450); Red Blood Count 4.29 10^6/uL (4.70-6.10); Red Cell Distribution Width 14.5 % (11.0-15.0); White Blood Count 8.5 10^3/uL (4.0-11.0)
[2025-01-16] MEDS: IRON SUCROSE COMPLEX 300 MG in 0.9 % SODIUM CHLORIDE 250 ML 176.667 MG IV (09:24)
== END 2025-01-17 08:05 | disposition home or self-care (01) ==
LOC: INF 07:28
PROVIDERS: PCP Family Medicine; Visit Provider Family Medicine
DX: D50.9 Iron deficiency anemia, unspecified (principal)
CPT/HCPCS: 36415; 85025; 96365; J1756

== ENCOUNTER 2025-01-23 16:43 | Outpatient (OUT) | payer OTHER, SELFPAY ==
--- NOTE | 2025-01-23 17:15 | XR_ITS ---
The [address] [address] Patient Name: JAM SHANKS MRN: [id number] date: 1965 Sex: M Assigned Patient Location: [facility] Current Patient Location: Accession/Order Number: [id number] Exam Date: 01/23/2025 21:02 Report Date: 01/24/2025 15:15 At the request of: JOSE L LACKEY MD Procedure: XR shoulder MELISSA min 2V 3 views both shoulders HISTORY: Acute bilateral shoulder pain with radiation of the neck Marked right glenohumeral degeneration. Joint space narrowing with widening of the glenoid and marginal spurring. Marked acromiohumeral joint space narrowing. Remodeling of the undersurface of acromion. The findings are consistent with chronic rotator cuff tear. Inferior spurring of acromioclavicular joint. Extensive left glenohumeral degeneration joint space narrowing widening of the glenoid and marginal spurring. Marked narrowing of the left acromiohumeral space with remodeling of undersurface of the acromion. Findings consistent with chronic rotator cuff tear. Mild left acromioclavicular degeneration. No acute bony findings. No soft tissue abnormality. XR/XR shoulder MELISSA min 2V IMPRESSION: Extensive bilateral glenohumeral degeneration. Findings of chronic bilateral rotator cuff tears as above. Impression dictated by: Ta Finn M.D.01/24/2025 3:15 PM [facility]ictation [facility] Electron[facility] authenticated by: [id number] Y Date: 01/24/2025 15:15
--- NOTE | 2025-01-23 17:15 | XR_ITS ---
The [place] [id number] Patient Name: JAM SHANKS MRN: [id number] date: 1965 Sex: M Assigned Patient Location: [facility] Current Patient Location: [facility] Accession/Order Number: [id number] Exam Date: 01/23/2025 21:06 Report Date: 01/23/2025 21:09 At the request of: JOSE L LACKEY MD Procedure: XR cervical spine 2-3V 3 viewscervical spine HISTORY: Posterior neck pain COMPARISON: 09/24/2022 POSTOPERATIVE CHANGES: None BONY ALIGNMENT: Continued straightening of cervical lordosis HYPERMOBILITY::No bending imaging. LISTHESIS:Similar mild degenerative listhesis FRACTURE: None DISC DEGENERATION: Extensive C4-5 and C5-6 spondylosis FACETS: Multilevel facet degeneration FORAMEN: Not assessed DENS: Intact CRANIOCERVICAL JUNCTION: Unremarkable SOFT TISSUES: Unremarkable XR/XR cervical spine 2-3V IMPRESSION: Similar Extensive C4-5 and C5-6 spondylosis. Similar straightening of cervical lordosis with mild midcervical degenerative listhesis Impression dictated by: Ta Finn M.D.01/23/2025 9:09 PM Dictation Location: [place] [address] Electronically authenticated by: [id number] Y Date: 01/23/2025 21:09
== END 2025-01-23 16:44 | disposition home or self-care (01) ==
LOC: RAD 16:45
PROVIDERS: PCP Family Medicine; Visit Provider Family Medicine
DX: M54.12 Radiculopathy, cervical region (principal); M19.012 Primary osteoarthritis, left shoulder; M19.011 Primary osteoarthritis, right shoulder; M75.102 Unspecified rotator cuff tear or rupture of left shoulder, not specified as traumatic; M75.101 Unspecified rotator cuff tear or rupture of right shoulder, not specified as traumatic; M47.812 Spondylosis without myelopathy or radiculopathy, cervical region
CPT/HCPCS: 72040; 73030

== ENCOUNTER 2025-01-26 10:35 | Outpatient (OUT) | payer OTHER, SELFPAY ==
--- OUTSIDE RECORDS SUMMARY | 2025-01-26 10:42 | XMS_ITS | CCD ---
Author Organization [facility] Care Team Providers Care Pocket Creaser Name Role Phone Rigo Gonzalez Attending Provider Jose L Lackey Primary Care Provider [phone] Jose L Lackey MD Primary Care Provider [phone] Jose L Lackey MD Primary Care Provider [phone] ZIYAD ., DR DOMINGO Primary Care Unavailable HOY ., DR DOMINGO Consulting Unavailable HOY ., DR DOMINGO Attending Unavailable HOY ., DR DOMINOG Admitting Unavailable ATTLE[place]O, DR KALEIGH Strong Consulting Unavailable HOY ., [...] Jose L Lackey MD Primary Care Provider [phone] DAMION MABRY Attending Unavailable DAMION MABRY [...] Medication Allergies] Propensity to adverse reactions (disorder) [facility] Repository Medications Current Medications Medication Drug Class(es) [...] in am, 3 noon, 2 pm), per molded goods inspector trimmer 0 Active Comment on above: Take by mouth. takes 8 pills a days, divided three times daily (3 in am, 3 noon, 2 pm), per molded goods inspector trimmer TAKE 2 TABLETS BY MO UT 4 [...] mg subcutaneously every 2 weeks. Prescribed by Marine Electrician : Nel Lebron MD Previously prescr. by Ronald Brown MD 0 02/18/2021 05/04/2023 Discontinued Comment on above: Inject 40 mg subcuta neously every 2 weeks. Prescribed by Marine Electrician : Nel Lebron MD Previously prescr. by [...] on above: TAKE 1 CAPSULE BY MO [facility] 4 TIMES A DAY 0.5 ml [...] (2 sources) Drug therapy finding; Translations: [Other long filler cigar roller machine (current) drug therapy] Episodic Other bone disease [...] te Episodic/Chronic Other aftercare (1 source) Other long filler cigar roller machine (current) drug therapy; Translations: [OTH JAIL CURRENT DRUG THERAPY] Onset: 09-26-2022 Episodic Other [...] Qn (Bld) 0.09 International_Unit/mL Invalid Interpretation Code [facility] Comment on above: Performed By: #### 1 [id number] #### [facility] [address] [place] [id number] M. tuberculosis stim IFN-g by CD4+ CD8+ T-cells corrected for background Qn (Bld) 0.07 International_Unit/mL Invalid Interpretation Code [facility] Comment on above: Performed By: #### 1 [id number] #### [facility] [address] [place] [id number] M. tuberculosis stim IFN-g by CD4+ T-cells corrected for background Qn (Bld) 0.07 International_Unit/mL Invalid Interpretation Code [facility] Comment on above: Performed By: #### 1 [id number] #### [facility] [address] [place] [address] M. tuberculosis stim IFN-g Ql (Bld) [Interp] Negative Invalid Interpretation Code Negative [facility] Comment on above: Result Comment: No r [...] Chemiluminescence immunoassay methodology Performed at: [facility] [address] [place], [place] [id number] PhD Tarun Olivas Performed By: #### 1 [id number] #### [facility] [address] [place] [address] Mitogen stimulated gamma interferon corrected for background Qn (Bld) >10.00 Invalid Interpretation Code [facility] Comment on above: Performed By: #### 1 [id number] #### [facility] [address] [place] [address] Service comment (Unsp spec) [Interp] Comment Invalid Interpretation Code [facility] Comment on above: Result Comment: Malachi tiFERON-TB [...] for the test. Performed By: #### 1 [id number] #### [facility] [address] [place] [address] AMA Ab Scron 12-15-2024 Mitochondria M2 IgG Qn (S) <20.0 Invalid Interpretation Code 0.0-20.0 [facility] Comment on above: Result Comment: Nega tive 0.0 - 20.0 Equivocal 20.1 - 24.9 Positive >24.9 Mitochondrial (M2) Antibodies are found in 90-96% of patients with primary biliary cirrhosis. Performed at: [facility] [address] [place], [place] [id number] PhD Tarun Olivas Performed By: #### 1 [id number] #### [facility] [address] [place] [address] Celiac Disease Comprehensive on 12-15-2024 Endomysium IgA Ql (S) Negative Invalid Interpretation Code Negative [facility] Comment on above: Performed By: #### 1 [id number] #### [facility] [address] [place] [address] Gliadin peptide IgA Qn (S) 5 unit(s) Invalid Interpretation Code 0-19 [facility] Comment on above: Result Comment: Nega tive 0 - 19 Weak Positive 20 - 30 Moderate to Strong Positive >30 Performed By: #### 1 [id number] #### [facility] [address] [place] [address] Gliadin peptide IgG Qn (S) 2 unit(s) Invalid Interpretation Code 0-19 [facility] Comment on above: Result Comment: Nega tive 0 - 19 Weak Positive 20 - 30 Moderate to Strong Positive >30 Performed By: #### 1 [id number] #### [facility] [address] [place] [address] IgA [Mass/Vol] 199 mg/dL Invalid Interpretation Code 90-386 [facility] Comment on above: Result Comment: Perf ormed at: [facility] [address] [id number] PhD Tarun Olivas Performed By: #### 1 [id number] #### [facility] [address] [place] [address] tTG IgA Qn (S) <2 Invalid Interpretation Code 0-3 [facility] Comment on above: Result Comment: Nega tive 0 - 3 Weak Positive 4 - 10 Positive >10 Tissue Transglutaminase (tTG) has been identified as the endomysial antigen. Studies have demonstr- ated that endomysial IgA antibodies have over 99% specificity for gluten sensitive enteropathy. Performed By: #### 1 [id number] #### [facility] [address] [place] [address] tTG IgG Qn (S) 6 unit/mL High 0-5 [facility] Comment on above: Result Comment: Nega tive 0 - 5 Weak Positive 6 - 9 Positive >9 Performed By: #### 1 [id number] #### [facility] [address] [place] [address] Hep Bs Abon 12-15-2024 HBV surface Ab Ql (S) Non-Reactive Invalid Interpretation Code [facility] Comment on above: Result Comment: Non Reactive: Not immune to HBV infection. Equivocal: Unable to determine if anti-HBs is present at levels consistent with immunity. Reactive: Anti-HBs concentration detected at greater than 10 mIU/mL. Individual is considered to be immune to infection with HBV. Performed at: [facility] [address] [place] [id number] PhD Tarun Olivas Performed By: #### 2 [id number] #### [facility] [address] [place] [address] Hep Bs Agon 12-15-2024 HBV surface Ag IA Ql Negative Invalid Interpretation Code Negative [facility] Comment on above: Result Comment: Perf ormed at: [employer] [address] [id number] PhD Tarun Olivas Performed By: #### 2 [id number] #### [facility] [address] [place] [address] Ambulatory Visit Summaryon 0 12-14-2024 Ambulatory Visit [...] Appointments Thursday 8:15 AM EDT With: Ricky ROBELRO, Luis Antonio Tiwari Where: [facility] [address] [place] [address]- You Need to Complete the Following C-Reactive [...] PSA (prostate specific antigen) Ulcerative colitis, universal Hazel ulcerative colitis Ureteral stone with hydronephrosis Urethral [...] for choosing us for your care. Normal [facility] CBC w/ Auto Diffon 5 Basophils/100 WBC (Bld) 0.5 % Normal 0.0-2.0 [facility] Comment on above: Performed By: #### 2 [id number] #### [facility] [address] [place] [address] Basophils/Leukocytes Auto (Bld) [Pure # fraction] 0.0 E9/L Normal 0.0-0.2 [facility] Comment on above: Performed By: #### 2 [id number] #### [facility] [address] [place] [address] Eosinophils (Bld) [#/Vol] 0.0 E9/L Normal 0.0-0.5 [facility] Comment on above: Performed By: #### 2 [id number] #### [facility] [address] [place] [address] Eosinophils/100 WBC (Bld) 0.0 % Normal 0.0-8.0 [facility] Comment on above: Performed By: #### 2 [id number] #### [facility] [address] [place] [address] Erythrocyte distribution width (RBC) [Ratio] 15.6 % High 10.9-14.2 [facility] Comment on above: Performed By: #### 2 [id number] #### [facility] [address] [place] [address] Hematocrit (Bld) [Volume fraction] 36.2 % Low 37.7-49.0 [facility] Comment on above: Performed By: #### 2 [id number] #### [facility] [address] [place] [address] Hemoglobin (Bld) [Mass/Vol] 12.6 g/dL Low 13.5-17.5 [facility] Comment on above: Performed By: #### 2 [id number] #### [facility] [address] [place] [address] Lymphocytes (Bld) [#/Vol] 1.6 E9/L Normal 1.0-4.0 [facility] Comment on above: Performed By: #### 2 [id number] #### [facility] [address] [place] [address] Lymphocytes/100 WBC (Bld) 24.8 % Normal 14.0-50.0 [facility] Comment on above: Performed By: #### 2 [id number] #### [facility] [address] [place] [address] MCH (RBC) [Entitic mass] 31.7 pg Normal 27.0-34.0 [facility] Comment on above: Performed By: #### 2 [id number] #### [facility] [address] [place] [address] MCHC (RBC) [Mass/Vol] 34.9 g/dL Normal 31.4-36.0 [facility] Comment on above: Performed By: #### 2 [id number] #### [facility] [address] [place] [address] MCV (RBC) [Entitic vol] 90.8 fL Normal 80.0-100.0 [facility] Comment on above: Performed By: #### 2 [id number] #### [facility] [address] [place] [address] Monocytes (Bld) [#/Vol] 0.5 E9/L Normal 0.2-1.0 [facility] Comment on above: Performed By: #### 2 [id number] #### [facility] [address] [place] [address] Neutrophils (Bld) [#/Vol] 4.4 E9/L Normal 2.0-7.5 [facility] Comment on above: Performed By: #### 2 [id number] #### [facility] [address] [place] [address] Neutrophils/100 WBC (Bld) 67.2 % Normal 36.0-75.0 [facility] Comment on above: Performed By: #### 2 [id number] #### [facility] [address] [place] [address] Platelet 261.0 E9/L Normal 150.0-500. 0 [facility] Comment on above: Performed By: #### 2 [id number] #### [facility] [address] [place] [address] Platelet mean volume (Bld) [Entitic vol] 6.9 fL Normal 6.4-10.8 [facility] Comment on above: Performed By: #### 2 [id number] #### [facility] [address] [place] [address] RBC (Bld) [#/Vol] 4.0 E12/L Low 4.3-5.9 [facility] Comment on above: Performed By: #### 2 [id number] #### [facility] [address] [place] [address] WBC corrected for nucl RBC Auto (Bld) [#/Vol] 6.6 E9/L Normal 4.0-11.0 [facility] Comment on above: Performed By: #### 2 [id number] #### [facility] [address] [place] [address] CMPon 12-14-2024 Albumin [Mass/Vol] 4.1 g/dL Normal 3.3-5.0 [facility] Comment on above: Performed By: #### 2 [id number] #### [facility] [address] [place] [address] Albumin/Globulin (S) [Mass conc ratio] 1.5 Normal 1.1-2.2 [facility] Comment on above: Performed By: #### 2 [id number] #### [facility] [address] [place] [address] ALP [Catalytic activity/Vol] 88 Int._Unit/L Normal 21-98 [facility] Comment on above: Performed By: #### 2 [id number] #### [facility] [address] [place] [address] ALT No additional P-5'-P [Catalytic activity/Vol] 27 Int._Unit/L Normal 6-46 [facility] Comment on above: Performed By: #### 2 [id number] #### [facility] [address] [place] [address] Anion gap [Moles/Vol] 9 mmol/L Normal 6-16 [facility] Comment on above: Performed By: #### 2 [id number] #### [facility] [address] [place] [address] AST [Catalytic activity/Vol] 29 Int._Unit/L Normal 5-43 [facility] Comment on above: Performed By: #### 2 [id number] #### [facility] [address] [place] [address] Bilirubin [Mass/Vol] 0.4 mg/dL Normal 0.0-1.1 [facility] Comment on above: Performed By: #### 2 [id number] #### [facility] [address] [place] [address] Calcium [Mass/Vol] 9.1 mg/dL Normal 8.9-11.1 [facility] Comment on above: Performed By: #### 2 [id number] #### [facility] [address] [place] [address] Chloride [Moles/Vol] 108 mmol/L Normal 101-111 [facility] Comment on above: Performed By: #### 2 [id number] #### [facility] [address] [place] [address] CO2 [Moles/Vol] 27 mmol/L Normal 21-31 [facility] Comment on above: Performed By: #### 2 [id number] #### [facility] [address] [place] [address] Creatinine [Mass/Vol] 0.8 mg/dL Normal 0.5-1.3 [facility] Comment on above: Performed By: #### 2 [id number] #### [facility] [address] [place] [address] Globulin (S) [Mass/Vol] 2.8 g/dL Normal 1.4-4.0 [facility] Comment on above: Performed By: #### 2 286709 #### [facility] [address] [place] [address] Glucose [Mass/Vol] 94 mg/dL Normal 55-199 [facility] Comment on above: Performed By: #### 2 [id number] #### [facility] [address] [place] [address] Potassium [Moles/Vol] 4.7 mmol/L Normal 3.5-5.3 [facility] Comment on above: Performed By: #### 2 [id number] #### [facility] [address] [place] [address] Protein [Mass/Vol] 6.9 g/dL Normal 6.0-7.8 [facility] Comment on above: Performed By: #### 2 [id number] #### [facility] [address] [place] [address] Sodium [Moles/Vol] 139 mmol/L Normal 135-145 [facility] Comment on above: Performed By: #### 2 [id number] #### [facility] [address] [place] [address] Urea nitrogen [Mass/Vol] 16 mg/dL Normal 5-21 [facility] Comment on above: Performed By: #### 2 [id number] #### [facility] [address] [place] [address] Urea nitrogen/Creatinine [Mass ratio] 20 No Units Normal 10-20 [facility] Comment on above: Performed By: #### 2 [id number] #### [facility] [address] [place] [address] CRPon 12-14-2024 CRP [Mass/Vol] 0.2 mg/dL Normal <=1.9 [facility] Comment on above: Performed By: #### 2 [id number] #### [facility] [address] [place] [address] Gastroenterology Office/Clin ic Noteon 12-14-2024 Gastroenterology Office/Clinic [...] Last visit 06/13/24 w/Dr. García: Assessment/Plan 1. Hazel ulcerative colitis (K51.00: Ulcerative (chronic) pancolitis without [...] next colonoscopy, he prefers to stay at [facility] He has also RA, no specific therapy for now, follows with Dr. Valente at [place] We discussed that having this lesion in [...] 89.5 fL (03/02/24) Chloride: 107 mmol/L (03/02/24) [place]coming Absolute: 0.5 E9/L (03/02/24) CO2: 27 mmol/L (03/02/24) [place]coming Auto: 8.2 % (03/02/24) Creatinine: 0.8 mg/dL (03/02/24) MPV: 6.9 fL (03/02/24) Globulin: 3 gm/dL (03/02/24) Neutro Absolute: 4.2 E9/L (03/02/24) Glucose Lvl: 97 mg/dL (03/02/24) Neutro Auto: 63.6 % (03/02/24) Potassium Lvl: 3.6 mmol/L (03/02/24) Platelet: 344 E9/L (03/02/24) Sodium Lvl: 141 mmol/L (03/02/24) RBC: 3.9 E12/L Low (03/02/24) Total Protein: 7 (more content not included)... Normal [facility] Comment on above: Result Comment: Elec tronically Signed By: Ricky ROBLERO, Luis Antonio Tiwari\chelsea\Date and Time Signed: 12/14/24 08:52 EST eGFRon 12-14-2024 eGFR 101 mL/min/1.73 m2 Normal >=59 [facility] Comment on above: Performed By: #### 1 [id number] #### [facility] [address] [place] [address] Ambulatory Visit Summaryon 0 11-21-2024 Ambulatory Visit [...] With: Ricky ROBLERO, Luis Antonio Tiwari Where: [facility] [address] [facility] [address] [place] [address]- You Need to Schedule the Following Appointments Follow Up with DARRELL ROBLERO, LOREE Bunch When: Where: [facility] [address], [place] [address]- Medications What How Much When Instructions Unchanged [...] PSA (prostate specific antigen) Ulcerative colitis, universal Hazel ulcerative colitis Ureteral stone with hydronephrosis Urethral [...] What are (more content not included)... Normal [facility] CNPNon 11-21-2024 CNPN Telephone (OxitecULN) ----- JAM TOSCANO ([id number]) 1965 M Date Time Provider Department 11/21/24 [...] toe 3 days ago. 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 Denies any change in color [...] apt with me or any rheum ANGÉLICA (CLINCHING MACHINE OPERATOR or PA) who has opening soon. thank you kindly, Estephania Lara LPN 11/23/2024 8:01 AM Signed Please offer appt with Dr Dubon or CLINCHING MACHINE OPERATOR, if patient still interested. Jordyn Roberson 11/23/2024 [...] atorvastatin (LIPITOR (more content not included)... Normal [facility] PSA Totalon 11-21-2024 Prostate specific Ag [Mass/Vol] 3.3 ng/mL Normal 0.1-3.5 [facility] Comment on above: Result Comment: The concentration of PSA determined by different manufacturers can vary due to differences in assay methods and reagent specificity. Values obtained from different assay methods cannot be used interchangeably. The methodology used for this result was chemiluminescence using Missael Sernova's Access Hybritech PSA reagent. Performed By: #### 1 [id number] #### [facility] [address] [place] [address] [facility] 10-05-2024 [facility] Office Visit (ANGEL ) ----- OPALJAM DONALD ([id number]) 1965 M Date Time Provider Department 10/05/24 7:20 AM DARRIAN DUBON During your visit today, we recorded the following information about you: Pulse Blood pressure Weight 66/minute 128/76 77.7 kg Darrian Dubon MD 10/16/2024 7:47 PM Signed FOLLOW UP VISIT Patient's Name: Jam Murguiaaletha Melissa Erwin [facility] [address] PCP: Jose L Lackey MD [address] [place] [phone] Consult Requested by: Jose L Lackey MD [address] [place] [address] Other physicians: Marine Electrician prev. Nel Lebron MD (his prev. molded goods inspector trimmer left- Ronald Brown MD) ; Now following [...] No stiffness He is on sulfasalazine per molded goods inspector trimmer for his UC and this has been controlling his RA He is pleased with his treatment regimen He also states that his IBD is well controlled, states told is in remission, on Entyvio Doing exercise and working with personal banker at the gym and will be going [...] in IBD and is following with local molded goods inspector trimmer for that. Has been on Humira since Sep 2020 (started with 80 mg loading dose and since has been on 40 mg every 2 wks) He was pleased with Enbrel response to his RA and later was switched to Humira, reports has similar benefit and is pleased with response. His molded goods inspector trimmer switched him to Humira for optimal mgt of IBD and he feels this has helped his IBD better. Reports still gets 8 BM's a day, does not have BM at night, does not have to wake up from sleep. Has been following with his molded goods inspector trimmer for his UC Had colonoscopy 11/22/2021 with reported marked improvement in asc/transv/desc colon and severe active in rectum, histopath with active colitis with erosions. States Dr. Lebron has started him on rectal enemas. Recent colonoscopy with reported active colitis. He tells me that he continues to have multiple BM's; His molded goods inspector trimmer prescribed pred. course, completed recently. No jt [...] us, he is on Humira per his Marine Electrician He is off Enbrel, was switched to Humira by his molded goods inspector trimmer. (previously was on Enbrel 25 mg twice a wk and has been in remission since on Enbrel and very pleased with his treatment regimen) He is on Humira 40 mg every 2 wks by his Marine Electrician He is on sulfasalazine, Humira and mesalamine enemas per his molded goods inspector trimmer I have reviewed benefits of a whole food plant based diet He consumes dairy, cheese, sausage, hamburger. I have advised him on avoiding meats and dairy and reviewed reports and patient experience with flare of IBD and RA, as well as gastrointestinal dysbiosis. I advised him on a whole foods plant based diet. 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 Normal [facility] Ambulatory Visit Summaryon 0 06-13-2024 Ambulatory Visit Summary Ambulatory Visi t Summary ARNULFOJAM SCHUSTER :1965 Visit Date:06/13/2024 Ambulatory Visit Instructions Your Diagnosis Hazel ulcerative colitis History of colon polyps Elevated [...] (Entyvio 300 mg intravenous injection) See instructions Hazel ulcerative colitis 300 mg/ kg at week [...] Prostate calculus Rectal bleed Ulcerative colitis, universal Hazel ulcerative colitis Urethral stone Historical - Any problem that you are no longer receiving treatment for. Extreme obesity Ulcerative colitis Patient Survey You may receive a survey via text or e-mail asking about your office visit. Please share your experience with us by completing your survey. We appreciate your feedback and thank you for choosing us for your care. Normal [facility] Gastroenterology Office/Clin ic Noteon 06-13-2024 Gastroenterology [...] to repeat colon in 6 months at [facility] He has also RA, no specific therapy for now, follows with Dr. Valente at [place] We discussed that having this lesion in [...] 89.5 fL (03/02/24) Chloride: 107 mmol/L (03/02/24) [place]coming Absolute: 0.5 E9/L (03/02/24) CO2: 27 mmol/L (03/02/24) [place] Auto: 8.2 % (03/02/24) Creatinine: 0.8 mg/dL [...] WT: 167.2 lb BMI: 26.93 Assessment/Plan 1. Hazel ulcerative colitis (K51.00: Ulcerative (chronic) pancolitis without complications) UC History: Severe ulcerative colitis , dx 03/2015, started on (more content not included)... Normal [facility] Comment on above: Result Comment: Elec tronically Signed By: Ricky ROBLERO, Luis Antonio Tiwari\.br\Date and Time Signed: 06/13/24 10:35 EDT Surgical Pathology Reporton 06-07-2024 Surgical Pathology Report [facility] [address] [place] [address]- Surgical Pathology Report Collected Date/Time: 06/03/2024 10:08 [...] is entirely submitted in one cassette. (DC) DC:[facility] Microscopic Description A-E: Microscopic examination performed unless gross only specified. The use of one or more reagents in the above tests is regulated as an analyte specific reagent (ASR). The test or tests are ordered following initial H&E microscopic examination. The performance characteristics were determined by the Laboratory of [facility]. They have not been cleared or approved by the US Food and Drug Administration. The FDA has determined that such clearance or approval is not necessary. These tests are used for clinical purposes. They should not be regarded as investigational or for research. Appropriate positive and negative controls are performed and are acceptable. Normal [facility] Comment on above: Performed By: #### 4 [id number] #### [facility] [address] [place] [address] Main OR Intraoperative Recor don 06-06-2024 Main OR Intraoperative Record Main OR Intraoperative Record IntraOp Document Type FT Summary Primary Physician: Gisele ROBLERO, Asim Arroyo Finalized Date/Time: 06/06/24 09:08:21 Pt. Name: JAM TOSCANO /Sex: 1965 Male Med Rec #: [id number] Physician: Ricky ROBLERO, Luis Antonio Tiwari Financial #: [id number] Pt. Type: O Room/Bed: / Admit/Disch: 06/03/24 [...] Espinosa Role Performed Anesthesiologist Surgeon - Primary Line Erector - Primary Infection Prevention Coordinator Time In 06/03/24 10:03:00 06/03/24 10:03:00 06/03/24 [...] MD, Asim Arroyo, Alonzo RAMESH, Jeniffer Horowitz [employer] ATTENDANT, Claire Villalobos Time Out Complete 06/03/24 10:05:00 [...] and tissue Entry 1 Skin Integrity Intact, [place], Warm, and Skin Abnormality No Dry Outcomes Met? Yes Last Modified By: (more content not included)... Normal [facility] Colonoscopy Procedure Report on 06-03-2024 Esophagogastroduodenoscop y [...] 1-2 after discharge EGd with bx Normal [facility] Comment on above: Other Comment: Sheila trinh Attachment - attachment storage system not supported [id number] Can be viewed in source systemMissing Attachment - attachment storage system not supported [id number] Can be viewed in source systemMissing Attachment - attachment storage system not supported [id number] Can be viewed in source systemMissing Attachment - attachment storage system not supported [id number] Can be viewed in source systemMissing Attachment - attachment storage system not supported [id number] Can be viewed in source systemMissing Attachment - attachment storage system not supported [id number] Can be viewed in source systemMissing Attachment - attachment storage system not supported 0368614 Can be viewed in source systemMissing Attachment - attachment storage system not supported 1396991 Can be viewed in source systemMissing Attachment - attachment storage system not supported [id number] Can be viewed in source system Discharge [...] EDT With: Luis Antonio García MD Where: [facility] Normal [facility] Comment on above: Result Comment: Elec tronically Signed By: Jose RAMESH, Mary Lou\.br\Date and Time Signed: 06/03/24 10:51 EDT Main OR PACU I Recordon 07-1 9-2024 Main OR PACU I Record Main OR PACU I Rec ord PACU Phase I Document Type FT Summary Primary Physician: Asim Jaquez MD Finalized Date/Time: 06/03/24 14:21:42 Pt. Name: JAM TOSCANO Don/Sex: 1965 Male Med Rec #: [id number] Physician: Luis Antonio García MD Financial #: [id number] Pt. Type: O Room/Bed: / Admit/Disch: 06/03/24 [...] Mary Lou Garcia RN 06/03/24 14:21 Normal [facility] Main OR Preoperative Recordo n 06-03-2024 Main OR Preoperative Record Main OR Preoperative Record Holding Area Document Type FT Summary Primary Physician: Asim Jaquez MD Finalized Date/Time: 06/03/24 09:08:09 Pt. Name: JAM TOSCANO D.O.B./Sex: 1965 Male Med Rec #: [id number] Physician: Luis Antonio García MD Financial #: [id number] Pt. Type: O Room/Bed: / Admit/Disch: 06/03/24 [...] 06/03/24 09:02 Jaguar Herrera RN 06/03/24 09:08 [facility] Liveron 06-01-2024 US Liver Exam Date/Time: [...] Zimmerman MD Transcribed by: BERNARD Technologist: ZAIRE [facility] CNOVon 05-09-2024 CNOV Office Visit (ANGEL ) ----- JAM TOSCANO ([id number]) 1965 M Date Time Provider Department 05/09/24 9:00 AM NIDIA WESTON During your visit today, we recorded the following information about you: Temperature Pulse Blood pressure Weight 98.4 degrees 89/minute 118/79 76.3 kg Nidia Weston, NETWORK COORDINATOR.METER/RELAY CRAFTSMAN 05/09/2024 10:39 AM Signed Follow up Jam [...] D defi (more content not included)... Normal [facility] Physician Orderon 05-05-2024 Physician Order [id number]#1.00TIFF Normal [facility] C[facility] Telephone (OxitecUAAdNectar) ----- JAM TOSCANO ([id number]) 1965 M Date Time Provider Department 05/03/24 BEN MARTINEZ During your visit today, we recorded the following information about you: Estephania Devine LPN 05/03/2024 10:55 AM Signed Received lab results from [facility]. Results placed on your desk at [facility] for review. Kelli Madrid MA 05/05/2024 8:28 AM Signed Pt is scheduled with Nidia and infusion on Thursday -- Ben Martinez MD 05/05/2024 2:07 PM Signed For chart: [place] 05/02/24 high esr 79 (normal<20mm/hr), normal vitamin D 51.4, cmp, creat 0.94, calcium 8.7, crp<0.5 (normal<0.5mg/dL); Allergies As of Date: 05/03/2024 (No Known Allergies) Date Reviewed: 04/11/2024 Reviewed by: Nidia Weston, ADEOLA.METER/RELAY CRAFTSMAN - Fully Assessed Reason for Visit: Results [...] Encounter Status:Closed by [facility] Tele[facility] (ANGEL) ----- RIMMAJAM ([id number]) 1965 M Date Time Provider Department 04/11/24 NIDIA WESTON During your visit today, we recorded the following information about you: Nidia Weston APRN.JOSE 04/11/2024 7:56 PM Addendum Please call dentist for clearance for op med reclast [facility] [phone] Please also call patient Xray showed Severe changes of chronic inflammatory arthritis, similar to prior. Left hand metallic foreign body. Did he injury his left hand prior ? Did he have eval on this prior if never eval I did place a consult to ortho Kelli Madrid MA 04/12/2024 12:11 PM Signed Called [facility] dental [phone] currently at lunch - will call back after 1pm Kelli Madrid MA 04/12/2024 2:35 PM Signed Spoke with [facility] requesting dental clearance letter be faxed to [phone] faxed with confirmation Notified patient of below, [...] Date Reviewed: 04/11/2024 Reviewed by: Nidia Weston APRN.METER/RELAY CRAFTSMAN - Fully Assessed Reason for Visit: Patient Update [1234] Primary Visit Diagnosis:Foreign body of left hand, sequela [S60.552S] Order(s):CONSULT TO ORTHOPAEDICS [9026] Order #: [id number]: 1 FUTURE Prescriptions as of 05/03/2024 - [...] Status:Closed by KELLI MADRID on 04/12/24 Normal [facility] Pre-Certification Formon Pre-Certification Form [id number]#1.00TIFF Normal [facility] CNOVon 03-14-2024 CNOV Office Visit (ANGEL ) ----- JAM TOSCANO ([id number]) 1965 M Date Time Provider Department 03/14/24 9:00 AM NIDIA WESTON During your visit today, we recorded the following information about you: Pulse Blood pressure Weight 97/minute 121/83 74.9 kg Nidia Weston, NETWORK COORDINATOR.METER/RELAY CRAFTSMAN 04/11/2024 7:56 PM Signed Follow up Jam [...] work or invasive procedures No dental concerns [facility] [phone] No serious infections or fevers Stopped celebrex [...] arthritis invo (more content not included)... Normal [facility] XR HAND 3V PA/LAT/OBL BILon 03-14-2024 [...] to prior. Left hand metallic foreign body. Electronic Intelligence Officer: CODY Transcribe Date/Time: Mar 14 2024 1:31P Dictated by : HORACIO DAWSON MD This examination was interpreted and the report reviewed and electronically signed by: HORACIO DAWSON MD on Mar 14 2024 5:53PM EST [id number] Normal [facility] XR Hand - bilateral PA and L ateral and Obliqueon 03-14-2024 IMPRESSION: Severe changes of chronic inflammatory arthritis, similar to prior. Left hand metallic foreign body. Electronic Intelligence Officer: CODY Transcribe Date/Time: Mar 14 2024 1:31P [...] to prior. Left hand metallic foreign body. Electronic Intelligence Officer: PSCB Transcribe Date/Time: Mar 14 2024 1:31P Dictated by : HORACIO DAWSON MD This examination was interpreted and the report reviewed and electronically signed by: HORACIO DAWSON MD on Mar 14 2024 5:53PM [facility] Radiology Study observation (narrative) Franky abbott [facility] XR Hand - bilateral PA and L ateral and ObliqueOrdered By: Ccf Provider on 03-14-2024 [facility] Consent for Procedure/Surger yon 03-07-2024 Consent for Procedure/Surgery [id number]#1.00TIFF Normal [facility] Ambulatory Visit Summaryon 0 03-04-2024 Ambulatory [...] With: Ricky ROBLERO, Luis Antonio Tiwari Where: [facility] Invalid Interpretation Code History of colon polyps [facility] Gastroenterology Office/Clin ic Noteon 03-04-2024 Gastroenterology Office/Clinic Note Chief Complaint universal UC HPI Staff Patient is a 58 year old male who presents today for a follow up to Colonoscopy on 02/26/24. Still taking Entyvio q8 weeks. Last visit 12/11/23 w/Dr. García: Assessment/Plan 1. Hazel ulcerative colitis (K51.00: Ulcerative (chronic) pancolitis without [...] for now, follows with Dr. Valente at [place] For PCP, please make sure patient is [...] 89.5 fL (03/02/24) Chloride: 107 mmol/L (03/02/24) [place] Absolute: 0.5 E9/L (03/02/24) CO2: 27 mmol/L (03/02/24) [place] Auto: 8.2 % (03/02/24) Creatinine: 0.8 mg/dL [...] History of Present Illness Still taking Entyvio j0gxodi, patient states this is the best hes [...] 126/80 HT (more content not included)... Normal [facility] Comment on above: Result Comment: Elec tronically Signed By: Ricky ROBLERO, Luis Antonio Tiwari\.br\Date and Time Signed: 03/04/24 09:28 EDT\.br\Electronically Co-Signed By: Naz Gupta MA\.br\Date and Time Co-Signed: 03/04/24 09:23 EDT IntraOperative Documentson 0 03-04-2024 IntraOperative Documents [id number]#1.00TIFF Normal [facility] CBC w/ Auto Diffon 4 Basophils/100 WBC (Bld) 0.6 % Normal 0.0-2.0 F [facility] Comment on above: Performed By: #### 2 750236, 0258998, [id number] #### [facility] [address] [place] [address] Basophils/Leukocytes Auto (Bld) [Pure # fraction] 0.0 E9/L Normal 0.0-0.2 [facility] Comment on above: Performed By: #### 2 526959, 5063058, [id number] #### [facility] [address] [place] [address] Eosinophils (Bld) [#/Vol] 0.0 E9/L Normal 0.0-0.5 [facility] Comment on above: Performed By: #### 2 672513, 5765177, 97463070 #### [facility] [address] [place] [address]52 Eosinophils/100 WBC (Bld) 0.0 % Normal 0.0-8.0 [facility] Comment on above: Performed By: #### 2 633472, 4511773, 32796535 #### [facility] [address] [place] [address]016 Erythrocyte distribution width (RBC) [Ratio] 15.1 % High 10.9-14.2 [facility] Comment on above: Performed By: #### 2 854918, 5132626, 12346892 #### [facility] [address] [place] [address] 69065 Hematocrit (Bld) [Volume fraction] 34.5 % Low 37.7-49.0 [facility] Comment on above: Performed By: #### 2 774742, 0214501, 16405005 #### [facility] [address] [place] [address]448 Hemoglobin (Bld) [Mass/Vol] 11.3 g/dL Low 13.5-17.5 [facility] Comment on above: Performed By: #### 2 870089, 6422899, 55143670 #### [facility] [address] [place] [address] Lymphocytes (Bld) [#/Vol] 1.8 E9/L Normal 1.0-4.0 [facility] Comment on above: Performed By: #### 2 651654, 9634298, 08329864 #### [facility] [address] [place] [address] 10777 Lymphocytes/100 WBC (Bld) 27.6 % Normal 14.0-50.0 [facility] Comment on above: Performed By: #### 2 366666, 6037644, 72662916 #### [facility] [address] [place] [address] 67891 MCH (RBC) [Entitic mass] 29.4 pg Normal 27.0-34.0 [facility] Comment on above: Performed By: #### 2 747197, 5525057, 35752511 #### [facility] [address] [place] [address] 48491 MCHC (RBC) [Mass/Vol] 32.9 g/dL Normal 31.4-36.0 [facility] Comment on above: Performed By: #### 2 083491, 3883747, 79244541 #### [facility] [address] [place] [address] 90218 MCV (RBC) [Entitic vol] 89.5 fL Normal 80.0-100.0 F [facility] Comment on above: Performed By: #### 2 347646, 6119509, 80739468 #### [facility] [address] [place] [address] 72095 Monocytes (Bld) [#/Vol] 0.5 E9/L Normal 0.2-1.0 F [facility] Comment on above: Performed By: #### 2 829833, 2612138, 05972265 #### [facility] [address] [place] [address] 87782 Neutrophils (Bld) [#/Vol] 4.2 E9/L Normal 2.0-7.5 [facility] Comment on above: Performed By: #### 2 027490, 4223247, 05696588 #### [facility] [address] [place] [address] 53066 Neutrophils/100 WBC (Bld) 63.6 % Normal 36.0-75.0 [facility] Comment on above: Performed By: #### 2 857404, 1012442, 32897429 #### [facility] [address] [place] [address] Platelet 344.0 E9/L Normal 150.0-500. 0 [facility] Comment on above: Performed By: #### 2 064988, 7036154, 62198014 #### [facility] [address] [place] [address] Platelet mean volume (Bld) [Entitic vol] 6.9 fL Normal 6.4-10.8 [facility] Comment on above: Performed By: #### 2 800527, 3333081, 19743368 #### [facility] [address] [place] [address] 36013 RBC (Bld) [#/Vol] 3.9 E12/L Low 4.3-5.9 [facility] Comment on above: Performed By: #### 2 330115, 4969918, 70541077 #### [facility] [address] [place] [address] 13492 WBC corrected for nucl RBC Auto (Bld) [#/Vol] 6.6 E9/L Normal 4.0-11.0 [facility] Comment on above: Performed By: #### 2 250238, 8681059, 27008508 #### [facility] [address] [place] [address] CMPon 03-02-2024 Albumin [Mass/Vol] 4.0 g/dL Normal 3.3-5.0 [facility] Comment on above: Performed By: #### 2 307370, 8619191, 68057028 #### [facility] [address] [place] [address] 07[address] Albumin/Globulin (S) [Mass conc ratio] 1.3 Normal 1.1-2.2 [facility] Comment on above: Performed By: #### 2 051619, 4165996, 45009859 #### [facility] [address] [place] [address] 17546 ALP [Catalytic activity/Vol] 139 Int._Unit/L High 21-98 [facility] Comment on above: Performed By: #### 2 468117, 8612515, 04657800 #### [facility] [address] [place] [address] ALT No additional P-5'-P [Catalytic activity/Vol] 20 Int._Unit/L Normal 6-46 [facility] Comment on above: Performed By: #### 2 415669, 7687107, 02696735 #### [facility] [address] [place] [address] Anion gap [Moles/Vol] 11 mmol/L Normal 6-16 [facility] Comment on above: Performed By: #### 2 855501, 3925765, 52100390 #### [facility] [address] [place] [address] AST [Catalytic activity/Vol] 25 Int._Unit/L Normal 5-43 [facility] Comment on above: Performed By: #### 2 686924, 4515761, 40773007 #### [facility] [address] [place] [address] Bilirubin [Mass/Vol] 0.3 mg/dL Normal 0.0-1.1 [facility] Comment on above: Performed By: #### 2 776637, 4852153, 49790162 #### [facility] [address] [place] [address] Calcium [Mass/Vol] 9.4 mg/dL Normal 8.9-11.1 [facility] Comment on above: Performed By: #### 2 748648, 4680265, 65445659 #### [facility] [address] [place] [address] Chloride [Moles/Vol] 107 mmol/L Normal 101-111 [facility] Comment on above: Performed By: #### 2 429719, 3725319, 03853549 #### [facility] [address] [place] [address] CO2 [Moles/Vol] 27 mmol/L Normal 21-31 [facility] Comment on above: Performed By: #### 2 723381, 1153824, 96435353 #### [facility] [address] [place] [address] Creatinine [Mass/Vol] 0.8 mg/dL Normal 0.5-1.3 [facility] Comment on above: Performed By: #### 2 450228, 3478285, 78564251 #### [facility] [address] [place] [address] Globulin (S) [Mass/Vol] 3.0 g/dL Normal 1.4-4.0 F [facility] Comment on above: Performed By: #### 2 314566, 5311591, 85377071 #### [facility] [address] [place] [address] Glucose [Mass/Vol] 97 mg/dL Normal 55-199 [facility] Comment on above: Performed By: #### 2 245974, 3836092, 13061040 #### [facility] [address] [place] [address] Potassium [Moles/Vol] 3.6 mmol/L Normal 3.5-5.3 [facility] Comment on above: Performed By: #### 2 753927, 0337826, 65636656 #### [facility] [address] [place] [address] Protein [Mass/Vol] 7.0 g/dL Normal 6.0-7.8 [facility] Comment on above: Performed By: #### 2 030105, 4218468, 92115165 #### [facility] [address] [place] [address] Sodium [Moles/Vol] 141 mmol/L Normal 135-145 [facility] Comment on above: Performed By: #### 2 491635, 0286809, 51543786 #### [facility] [address] [place] [address] Urea nitrogen [Mass/Vol] 12 mg/dL Normal 5-21 [facility] Comment on above: Performed By: #### 2 350699, 6593833, 42632081 #### [facility] [address] [place] [address] Urea nitrogen/Creatinine [Mass ratio] 15 No Units Normal 10-20 [facility] Comment on above: Performed By: #### 2 251404, 2162266, 49570313 #### [facility] [address] [place] [address] Consent for Treatmenton 02-14 Consent for Treatment [id number]#1.00TIFF Normal [facility] Progress Note-Physicianon Progress Note-Physician Patient: JAM QUINTANA MRN: Age: 58 years Sex: Male : 1965 Associated Diagnoses: None Author: MD Zabala Ahmad F Postoperative Information Postoperative disposition: Postoperative disposition: To PACU. Optimetrix number: Optimetrix number [id number]. Anesthetic utilized: General. Health Status Allergies: Allergic [...] meets criteria ( To home ). Normal [facility] Comment on above: Result Comment: Elec tronically [...] # 10 cap(s), Refills(s) 0, [id number] 168, cm, 10/23/23 13:41:00 EST, Height/Length Dosing, 75.1, kg, 10/23/23 13:41:00 EST, Weight Dosing Humira Pen Crohns/Ulcer Colitis/Hidradenitis Suppurativa Starterr Pack 80 mg/0.8 mL subcutaneous ki...: See Instructions, Inject 160 mg on day one, Inject 80 mg on day 15, # 1 kit(s), Refills(s) 0, Pharmacy: [facility]/pharmacy #6177, 167, cm, 09/04/20 8:15:00 EDT, Height/Length Dosing, 75.8, kg, 09/04/20 8:15:00 EDT, Weight Dosing Zofran ODT 4 mg Tab-Dis: 4 mg = 1 tab(s), Oral, q8hr, PRN Nausea/Vomiting, # 30 tab(s), Refills(s) 0, Pharmacy: [facility]/pharmacy #6177, 168, cm, 10/23/23 13:41:00 EST, Height/Length Dosing, 75.1, kg, 10/23/23 13:41:00 EST, Weight Dosing mesalamine 4 g/60 mL rectal enema: = 1 EA, Rectal, Once a day (at bedtime), # 30 EA, Refills(s) 3, Pharmacy: [facility]/pharmacy #6177, 168, cm, 03/23/23 8:23:00 EDT, Height/Length Dosing, 81.1, kg, 03/23/23 8:23:00 EDT, Weight Dosing mesalamine 4 g/60 mL rectal enema: = 1 EA, Rectal, Once a day (at bedtime), # 30 EA, Refills(s) 6, [facility], 168, cm, 10/16/22 13:49:00 EST, Height/Length Dosing, 80.6, kg, 10/16/22 13:49:00 EST, Weight Dosing omeprazole 40 mg Cap-DR: 40 mg = 1 cap(s), Oral, Daily, # 30 cap(s), Refills(s) 11, [facility], 167, cm, 09/04/20 8:15:00 EDT, Height/Length Dosing, 75.8, kg, 09/04/20 8:15:00 EDT, Weight Dosing sulfasalazine 500 mg oral enteric coated tablet: 1,000 mg = 2 tab(s), Oral, QID, X 30 day(s), # 240 tab(s), Refills(s) 11, [facility], 168, cm, 04/01/23 8:58:00 EDT, Height/Length [...] list: All Problems Hyperlipemia / SNOMED CT 54893620 / Confirmed Rectal bleed / SNOMED CT 765284865 / Confirmed Heartburn / SNOMED CT 26537087 / Confirmed Ulcerative colitis, universal / SNOMED CT 6610153100 / Confirmed Bladder stone / SNOMED CT 258906934 / Confirmed BPH with urinary obstruction / SNOMED CT 1064103804 / Confirmed Incomplete bladder emptying / SNOMED CT 753114714 / Confirmed Gross hematuria / SNOMED CT 127253808 / Confirmed Kidney stones / SNOMED CT 779534037 / Confirmed Bladder mass / SNOMED CT 0090759940 / Confirmed Urethral stone / SNOMED CT 10208081 / Confirmed Prostate calculus / SNOMED CT 790368589 / Confirmed Continuous severe abdominal pain / SNOMED CT 50489849 / Confirmed Hematochezia / SNOMED CT 6682380597 / Confirmed Acute diarrhea / SNOMED CT 2519390244 / Confirmed Hazel ulcerative colitis / SNOMED CT 1473041173 / Confirmed Adenomatous colon polyp / SNOMED CT 9475326532 / Confirmed Resolved: Extreme obesity / SNOMED CT 60W67854-0HR4-20S6-V897-8 [id number] Resolved: Ulcerative colitis / SNOMED CT 175923624 Canceled: Ulcerative colitis / SNOMED CT 204363841 Histories Past Medical History: Resolved Extreme obesity ([id number]-S075- 9S5WN48CLBXB): Resolved. Ulcerative colitis (859853747): Resolved. Family History: Procedure history: Colonoscopy (942303344) on 02/26/2024 at 58 Years. Colonoscopy (368992956) on 03/23/2023 at 57 Years. Cystoscopy (74657892) on 02/04/2021 at 55 Years. Colonoscopy (186187342). right hip replacement (459644330). replacement on both knees (203643201). Hernia repair (77178359). Social History Soc (more content not included)... Normal [facility] Comment on above: Result Comment: Elec tronically Signed By: MD Vj, Rigoberto Espinosa\.br\Date and Time Signed: 03/02/24 14:21 EDT eGFRon 03-02-2024 eGFR 101 mL/min/1.73 m2 Normal >=59 [facility] Comment on above: Order Comment: Order added by Discern Expert. Performed By: #### 2 407969, 9510324, 94263049 #### [facility] [address] [place] [address] Consenton 02-29-2024 Consent [id number]#1.00TIFF Normal [facility] Discharge Instructionson Discharge Instructions [id number]#1.00TIFF Normal [facility] Main OR Intraoperative Recor don 02-29-2024 Main OR Intraoperative Record IntraOp Document Type FT Summary Primary Physician: Luis Antonio García MD Finalized Date/Time: 02/29/24 10:32:28 Pt. Name: JAM TOSCANO/Sex: 1965 Male Med Rec #: [id number] Physician: Luis Antonio García MD Financial #: [id number] Pt. Type: O Room/Bed: / Admit/Disch: 02/26/24 [...] RN Role Performed EDGAR Surgeon - Primary Line Erector - Primary Time In 02/26/24 10:07:00 02/26/24 [...] and tissue Entry 1 Skin Integrity Intact, [place], Warm, and Skin Abnormality No Dry Outcomes Met? Yes Last Modified By: Donna Kumar RN 02/26/24 10:16:00 Post-Care Text: The patient is free from signs and symptoms of injury caused by extraneous objects Patient Positioning FT Pre-Care Text: Identifies physical alterations that require additional precautions for proce (more content not included)... [facility] Postoperative Documentson Postoperative Documents [id number]#1.00TIFF [facility] Consent for Treatmenton 02-14 Consent for Treatment [id number]#1.00TIFF Normal [facility] Discharge Instructionson Discharge Instructions JAM TOSCANO :1965 [...] For Persistent or heavy bleeding Pharmacy Information [facility] [place] Discharge Instructions Discharge Instructions New Follow Up Appointments after Discharge Follow Up with Luis Antonio García When: Within 1 to 2 weeks Comments: Call for any problems. Where: [facility], [address] [phone] [phone] Business (1) Medications What How Much When [...] (Entyvio 300 mg intravenous injection) See instructions Hazel ulcerative colitis 300 mg/ kg at week [...] Prostate calculus Rectal bleed Ulcerative colitis, universal Hazel ulcerative colitis Urethral stone Historical - Any [...] referred to (more content not included)... Normal [facility] Comment on above: Result Comment: Elec tronically [...] history and physical Documented on chart. Colonoscopy ([id number]) on 03/23/2023 at 57 Years. Cystoscopy ([id number]) on 02/04/2021 at 55 Years. Colonoscopy (512839793). right hip replacement (590519968). replacement on both knees (801417231). Hernia repair (95454604).. Past Medical History Resolved Extreme obesity ([id number]): Resolved. Ulcerative colitis ([id number]): Resolved.. Family History . Procedure History Colonoscopy ([id number]) on 03/23/2023 at 57 Years. Cystoscopy ([id number]) on 02/04/2021 at 55 Years. Colonoscopy (679045014). right hip replacement (925083155). replacement on both knees (034375991). Hernia repair (25206738).. Colorectal neoplasm risk assessment High risk UC. [...] 10 cap(s), Refills(s) 0, Pharmacy: [facility]/pharmacy #6177, 168, cm, 10/23/23 13:41:00 EST, Height/Length Dosing, 75.1, kg, 10/23/23 13:41:00 EST, Weight Dosing Humira Pen Crohns/Ulcer Colitis/Hidradenitis Suppurativa Starterr Pack 80 mg/0.8 mL subcutaneous ki...: See Instructions, Inject 160 mg on day one, Inject 80 mg on day 15, # 1 kit(s), Refills(s) 0, Pharmacy: [facility]/pharmacy #6177, 167, cm, 09/04/20 8:15:00 EDT, Height/Length Dosing, 75.8, kg, 09/04/20 8:15:00 EDT, Weight Dosing Zofran ODT 4 mg Tab-Dis: 4 mg = 1 tab(s), Oral, q8hr, PRN Nausea/Vomiting, # 30 tab(s), Refills(s) 0, Pharmacy: [facility]/pharmacy #6177, 168, cm, 10/23/23 13:41:00 EST, Height/Length Dosing, 75.1, kg, 10/23/23 13:41:00 EST, Weight Dosing mesalamine 4 g/60 mL rectal enema: = 1 EA, Rectal, Once a day (at bedtime), # 30 EA, Refills(s) 3, [facility] 168, cm, 03/23/23 8:23:00 EDT, Height/Length Dosing, 81.1, kg, 03/23/23 8:23:00 EDT, Weight Dosing mesalamine 4 g/60 mL rectal enema: = 1 EA, Rectal, Once a day (at bedtime), # 30 EA, Refills(s) 6, [facility], 168, cm, 10/16/22 13:49:00 EST, Height/Length Dosing, 80.6, kg, 10/16/22 13:49:00 EST, Weight Dosing omeprazole 40 mg Cap-DR: 40 mg = 1 cap(s), Oral, Daily, # 30 cap(s), Refills(s) 11, [facility], 167, cm, 09/04/20 8:15:00 EDT, Height/Length Dosing, 75.8, kg, 09/04/20 8:15:00 EDT, Weight Dosing sulfasalazine 500 mg oral enteric coated tablet: 1,000 mg = 2 tab(s), Oral, QID, X 30 day(s), # 240 tab(s), Refills(s) 11, [facility], 168, cm, 04/01/23 8:58:00 EDT, Height/Length [...] the col (more content not included)... Normal [facility] Comment on above: Result Comment: Elec tronically Signed By: Luis Antonio García MD\.br\Date and Time Signed: 02/26/24 10:37 EDT Inpatient Patient Summaryon 02-26-2024 Inpatient Patient Summary (Inserted Imag e. Unable to display) [place] [id number] [facility] Clinical Discharge Instructions PERSON INFORMATION Name: JAM [...] every 8 weeks. Refills: 6. Comment: Normal [facility] Main OR PACU I Recordon 02-14 Main OR PACU I Record PACU Phase I Docum ent Type FT Summary Primary Physician: Luis Antonio García MD Finalized Date/Time: 02/26/24 11:54:56 Pt. Name: JAM TOSCANO/Sex: 1965 Male Med Rec #: [id number] Physician: Luis Antonio García MD Financial #: [id number] Pt. Type: O Room/Bed: / Admit/Disch: 02/26/24 [...] By: Lesli May RN 02/26/24 11:54 Normal [facility] Main OR Preoperative Recordo n 02-26-2024 Main OR Preoperative Record Holding Area Document Type FT Summary Primary Physician: Luis Antonio García MD Finalized Date/Time: 02/26/24 08:41:02 Pt. Name: JAM TOSCANO/Sex: 1965 Male Med Rec #: [id number] Physician: Luis Antonio García MD Financial #: [id number] Pt. Type: O Room/Bed: / Admit/Disch: 02/26/24 [...] By: Lauren Rosado RN 02/26/24 08:41 Normal [facility] Monitor Recordon 02-26-2024 Monitor Record [id number]#[id number] Normal [facility] Monitor Record [id number]#[id number] Normal [facility] Outpatient Surgery Discharge Instructionon 02-26-2024 Outpatient Surgery Discharge Instruction [place] [id number] Patient Discharge Instructions PERSON INFORMATION Name: JAM [...] to serve you. Thank you for choosing [facility] HERE ARE THE MEDICATION CHANGES THAT [...] 6. PATIENT EDUCATION INFORMATION Instructions: Medication Leaflets: [facility] Patient Education - Texton 0 02-26-2024 [...] unsweetened, w/added ascorbic acid 1 cup 0.5 [place] 1 cup 0.7 Vegetables Cooked Green beans 1 cup 4.0 Carrots 1/2 cup sliced 2.3 Peas 1 cup 8.8 Potato (baked, with skin) 1 medium potato 3.8 Raw [place] (with peel) 1 cucumber 1.5 Lettuce 1 [...] 8.7 Peanuts 1/2 cup 7.9 [facility] SEEK [facility] C[facility] IF: You [...] Information adapted from: ExitCare? Patient Information ?2009 [employer] 2012 [email or web address] Colonoscopy Care After Surgery Please read the [...] and progress (more content not included)... Normal [facility] Esau 02-11-2024 CANDIE Telephone (ANGEL) ----- JAM TOSCANO ([id number]) 1965 M Date Time Provider Department 02/11/24 NIDIA WESTON During your visit today, we recorded the following information about you: Nidia Weston, NETWORK COORDINATOR.METER/RELAY CRAFTSMAN 02/11/2024 2:48 PM Signed Please call patient [...] Abs Lymph 1.00 - 4.00 k/uL 1.84 [place]% % 7.3 Abs [place] <0.87 k/uL 0.59 Eosin% % 0.1 Abs [...] Date Reviewed: 01/12/2024 Reviewed by: Nidia Weston, ADEOLA.METER/RELAY CRAFTSMAN - Fully Assessed Primary Visit Diagnosis:Elevated alkaline phosphatase level [R74.8] Order(s):CONSULT TO HEPATOLOGY [[id number]] Order #: [id number]: 1 FUTURE Prescriptions as of 02/16/2024 - [...] Status:Closed by ESTEPHANIA DEVINE on 02/16/24 Normal [facility] ALKALINE PHOSPHATASE ISOENZY MES (P)on 01-12-2024 ALK PHOS BONE % 16.2 % Normal 10.7-68.3 [facility] Comment on above: Order Comment: Speci men Type: BLOOD SPECIMENOrdering Facility: [facility] Address: [address] [place] [address] Performed By: #### A LKISOP ####[facility] LABIA [id number] [place] [address] [place] ALK PHOS LIVER % 83.8 % Normal 26.0-86.2 [facility] Comment on above: Order Comment: Latoyai men Type: BLOOD SPECIMENOrdering Facility: [facility] Address: [address] [place] [address] Performed By: #### A LKISOP ####[facility] LABCLIA [id number] [place] [address] [place] BONE FRACTION 34.2 U/L Normal 12.9-52.6 [facility] Comment on above: Order Comment: Latoyai men Type: BLOOD SPECIMENOrdering Facility: [facility] Address: [address] [place] [address] Performed By: #### A LKISOP ####[facility] LABIA [id number] [place] [address] [place] INTESTINE FRACTION 0.0 U/L Normal 0.0-16.3 [facility] Comment on above: Order Comment: Speci men Type: BLOOD SPECIMENOrdering Facility: [facility] Address: [address] [place] [address] Performed By: #### A LKISOP ####[facility] LABCLIA [id number] [place] [address] [place] LIVER FRACTION 176.8 U/L High 16.0-69.3 [facility] Comment on above: Order Comment: Speci men Type: BLOOD SPECIMENOrdering Facility: [facility] Address: [address] [place] [address] Performed By: #### A LKISOP ####[facility] LABIA [id number] [place] [address] [place] Neutrophils/100 WBC (Bld) 0.0 % Normal 0.0-24.2 [facility] Comment on above: Order Comment: Speci men Type: BLOOD SPECIMENOrdering Facility: [facility] Address: [address] [place] [address] Performed By: #### A LKISOP ####[facility] LABIA [id number] [place] [address] [place] ALP SerPl-cCncon 01-12-2024 ALP [Catalytic activity/Vol] 211 U/L High 38-113 [facility] Comment on above: Order Comment: Speci men Type: BLOOD SPECIMENOrdering Facility: [facility] Address: [address] [place] [address] Performed By: #### 6 768-6, 1988-03 ####[facility] LABIA [id number] [place] [address] [place] CBC W Auto Differential pane l (Bld)on 01-12-2024 Basophils (Bld) [#/Vol] 0.04 10*3/uL Normal <0.11 [facility] Comment on above: Order Comment: Speci men Type: BLOOD SPECIMENOrdering Facility: [facility] Address: [address] [place] [address] Performed By: #### 4 537-7, 08224-4 ####[facility] LABCLIA [id number] [place] [address] [place] Basophils/100 WBC (Bld) 0.5 % Normal [facility] Comment on above: Order Comment: Speci men Type: BLOOD SPECIMENOrdering Facility: [facility] Address: [address] [place] [address] Performed By: #### 4 537-7, 30356-7 ####[facility] LABCLIA [id number] [place] [address] [place] Differential cell count method Nom (Bld) Auto Normal [facility] Comment on above: Order Comment: Speci men Type: BLOOD SPECIMENOrdering Facility: [facility] Address: [address] [place] [address] Performed By: #### 4 537-7, 45213-4 ####[facility] LABCLIA [id number] [place] [address] [place] Eosinophils (Bld) [#/Vol] 10*3/uL Normal <0.46 [facility] Comment on above: Order Comment: Speci men Type: BLOOD SPECIMENOrdering Facility: [facility] Address: [address] [place] [address] Performed By: #### 4 537-7, 06130-4 ####[facility] LABCLIA [id number] [place] [address] [place] Eosinophils/100 WBC (Bld) 0.1 % Normal [facility] Comment on above: Order Comment: Speci men Type: BLOOD SPECIMENOrdering Facility: [facility] Address: [address] [place] [address] Performed By: #### 4 537-7, 76319-7 ####[facility] LABCLIA [id number] [place] [address] [place] Erythrocyte distribution width (RBC) [Ratio] 15.0 % Normal 11.5-15.0 [facility] Comment on above: Order Comment: Speci men Type: BLOOD SPECIMENOrdering Facility: [facility] Address: [address] [place] [address] Performed By: #### 4 537-7, 24881-1 ####[facility] LABCLIA [id number] [place] [address] [place] Hematocrit (Bld) [Volume fraction] 43.6 % Normal 39.0-51.0 [facility] Comment on above: Order Comment: Speci men Type: BLOOD SPECIMENOrdering Facility: [facility] Address: [address] [place] [address] Performed By: #### 4 537-7, 03235-9 ####[facility] LABIA [id number] [place] [address] [place] Hemoglobin (Bld) [Mass/Vol] 13.9 g/dL Normal 13.0-17.0 [facility] Comment on above: Order Comment: Speci men Type: BLOOD SPECIMENOrdering Facility: [facility] Address: [address] [place] [address] Performed By: #### 4 537-7, 10073-3 ####[facility] LABIA [id number] [place] [address] [place] Immature granulocytes (Bld) [#/Vol] 10*3/uL Normal <0.10 [facility] Comment on above: Order Comment: Speci men Type: BLOOD SPECIMENOrdering Facility: [facility] Address: [address] [place] [address] Performed By: #### 4 537-7, 18473-4 ####[facility] LABCLIA [id number] [place] [address] [place] Immature granulocytes/100 WBC (Bld) 0.2 % Normal [facility] Comment on above: Order Comment: Speci men Type: BLOOD SPECIMENOrdering Facility: [facility] Address: [address] [place] [address] Performed By: #### 4 537-7, 59318-2 ####[facility] LABCLIA [id number] [place] [address] [place] Lymphocytes (Bld) [#/Vol] 1.84 10*3/uL Normal 1.00-4.0 0 [facility] Comment on above: Order Comment: Speci men Type: BLOOD SPECIMENOrdering Facility: [facility] Address: [address] [place] [address] Performed By: #### 4 537-7, 83360-4 ####[facility] LABCLIA [id number] [place] [address] [place] Lymphocytes/100 WBC (Bld) 22.9 % Normal [facility] Comment on above: Order Comment: Speci men Type: BLOOD SPECIMENOrdering Facility: [facility] Address: [address] [place] [address] Performed By: #### 4 537-7, 44187-7 ####[facility] LABCLIA [id number] [place] [address] [place] MCH (RBC) [Entitic mass] 29.5 pg Normal 26.0-34.0 [facility] Comment on above: Order Comment: Speci men Type: BLOOD SPECIMENOrdering Facility: [facility] Address: [address] [place] [address] Performed By: #### 4 537-7, 42735-9 ####[facility] LABCLIA [id number] [place] [address] [place] MCHC (RBC) [Mass/Vol] 31.9 g/dL Normal 30.5-36.0 [facility] Comment on above: Order Comment: Speci men Type: BLOOD SPECIMENOrdering Facility: [facility] Address: [address] [place] [address] Performed By: #### 4 537-7, 82551-3 ####[facility] LABCLIA [id number] [place] [address] [place] MCV (RBC) [Entitic vol] 92.6 fL Normal 80.0-100.0 [facility] Comment on above: Order Comment: Speci men Type: BLOOD SPECIMENOrdering Facility: [facility] Address: [address] [place] [address] Performed By: #### 4 537-7, 40594-0 ####[facility] LABCLIA [id number] [place] [address] [place] Monocytes (Bld) [#/Vol] 0.59 10*3/uL Normal <0.87 [facility] Comment on above: Order Comment: Speci men Type: BLOOD SPECIMENOrdering Facility: [facility] Address: [address] [place] [address] Performed By: #### 4 537-7, 29672-1 ####[facility] LABCLIA [id number] [place] [address] [place] Monocytes/100 WBC (Bld) 7.3 % Normal [facility] Comment on above: Order Comment: Speci men Type: BLOOD SPECIMENOrdering Facility: [facility] Address: [address] [place] [address] Performed By: #### 4 537-7, 34963-4 ####[facility] LABCLIA [id number] [place] [address] [place] Neutrophils (Bld) [#/Vol] 5.55 10*3/uL Normal 1.45-7.5 0 [facility] Comment on above: Order Comment: Speci men Type: BLOOD SPECIMENOrdering Facility: [facility] Address: [address] [place] [address] Performed By: #### 4 537-7, 84247-4 ####[facility] LABCLIA [id number] [place] [address] [place] Neutrophils/100 WBC (Bld) 69.0 % Normal [facility] Comment on above: Order Comment: Speci men Type: BLOOD SPECIMENOrdering Facility: [facility] Address: [address] [place] [address] Performed By: #### 4 537-7, 56050-9 ####[facility] LABIA [id number] [place] [address] [place] Nucleated RBC (Bld) [#/Vol] 10*3/uL Normal <0.01 [facility] Comment on above: Order Comment: Speci men Type: BLOOD SPECIMENOrdering Facility: [facility] Address: [address] [place] [address] Performed By: #### 4 537-7, 75361-1 ####[facility] LABIA [id number] [place] [address] [place] Nucleated RBC/100 WBC (Bld) [Ratio] 0.0 /100 WBC Normal [facility] Comment on above: Order Comment: Speci men Type: BLOOD SPECIMENOrdering Facility: [facility] Address: [address] [place] [address] Performed By: #### 4 537-7, 77102-0 ####[facility] LABIA [id number] [place] [address] [place] Platelet mean volume (Bld) [Entitic vol] 9.4 fL Normal 9.0-12.7 [facility] Comment on above: Order Comment: Speci men Type: BLOOD SPECIMENOrdering Facility: [facility] Address: [address] [place] [address] Performed By: #### 4 537-7, 30691-5 ####[facility] LABIA [id number] [place] [id number] [place] Platelets (Bld) [#/Vol] 339 10*3/uL Normal 150-400 [facility] Comment on above: Order Comment: Speci men Type: BLOOD SPECIMENOrdering Facility: [facility] Address: [address] [place] [address] Performed By: #### 4 537-7, 14717-2 ####[facility] LABIA [id number] [place] [address] [place] RBC (Bld) [#/Vol] 4.71 10*6/uL Normal 4.20-6.00 [facility] Comment on above: Order Comment: Speci men Type: BLOOD SPECIMENOrdering Facility: [facility] Address: [address] [place] [address] Performed By: #### 4 537-7, 92526-2 ####[facility] [id number] [place] [address] [place] WBC (Bld) [#/Vol] 8.05 10*3/uL Normal 3.70-11.00 [facility] Comment on above: Order Comment: Speci men Type: BLOOD SPECIMENOrdering Facility: [facility] Address: [address] [place] [address] Performed By: #### 4 537-7, 44749-2 ####[facility] LABIA [id number] [place] [id number] [place] CNOVon 01-12-2024 CNOV Office Visit (ANGEL ) ----- JAM TOSCANO ([id number]) 1965 M Date Time Provider Department 01/12/24 10:30 AM NIDIA WESTON During your visit today, we recorded the following information about you: Pulse Blood pressure Weight 95/minute 132/88 74.7 kg Nidia Weston APRN.METER/RELAY CRAFTSMAN 02/14/2024 11:31 PM Signed Follow up Jam Toscano is a very nice 58 year old male seen for Rheumatoid Arthritis and Osteoporosis Subjective: Patient reports: Low iron- following with Dr. Lomeli Has not been taking iron consistently Following with GI - Dr. Salmon in [place] Has scope scheduled February 25 Last visit [...] work or invasive procedures No dental concerns [facility] [phone] No serious infections or fevers Stopped celebrex [...] (primary e (more content not included)... Normal [facility] CRP SerPl-ncon 01-12-2024 CRP [Mass/Vol] 0.4 mg/dL Normal <0.9 [facility] Comment on above: Order Comment: Quinn felder Type: BLOOD SPECIMENOrdering Facility: [facility] Address: [address] [place] [address] Performed By: #### 6 768-6, 1988-03 ####[facility] LABCLIA [id number] [place] [address] [place] ESR Westergren method (Bld) [Velocity]on 01-12-2024 ESR (Bld) [Velocity] 34 mm/h High 0-15 [facility] Comment on above: Order Comment: Quinn felder Type: BLOOD SPECIMENOrdering Facility: [facility] Address: [address] [place] [address] Performed By: #### 4 537-7, 76121-6 ####[facility] LABCLIA [id number] [place] [address] [place] Consent for Procedure/Surger yon 12-14-2023 Consent for Procedure/Surgery [id number]#1.00TIFF Normal [facility] Ambulatory Visit Summaryon 0 12-11-2023 Ambulatory Visit Summary JAM TOSCANO :1965 Visit Date:12/11/2023 Ambulatory Visit Instructions Your Diagnosis Hazel ulcerative colitis Adenomatous colon polyp Your Care [...] (Entyvio 300 mg intravenous injection) See instructions Hazel ulcerative colitis 300 mg/ kg at week [...] Prostate calculus Rectal bleed Ulcerative colitis, universal Hazel ulcerative colitis Urethral stone Historical - Any problem that you are no longer receiving treatment for. E (more content not included)... Normal [facility] Gastroenterology Office/Clin ic Noteon 12-11-2023 [...] BIOPSY: ? COLONIC MUCOSA WITHIN NORMAL LIMITS. [facility] 10/23/23 for c/o abdominal pain d/c diagnosis of Kidney stones, CT and labs completed. [facility] 11/04/23 for c/o nausea and diarrah [...] 87.3 fL (11/27/23) Chloride: 105 mmol/L (11/27/23) [place] Absolute: 0.9 E9/L (11/27/23) CO2: 24 mmol/L (11/27/23) [place] Auto: 9.3 % (11/27/23) Creatinine: 0.7 mg/dL [...] WT: 165.88 lb BMI: 26.71 Assessment/Plan 1. Hazel ulcerative colitis (K51.00: Ulcerative (chronic) pancolitis without [...] 2018. W (more content not included)... Normal [facility] Comment on above: Result Comment: Elec tronically Signed By: Ricky ROBLERO, Luis Antonio Tiwari\.br\Date and Time Signed: 12/11/23 10:32 EST Esau 12-03-2023 CNPN Telephone (ANGEL) ----- RIMMAJAM ([id number]) 1965 M Date Time Provider Department 12/03/23 NIDIA WESTON During your visit today, we recorded the following information about you: Nidia Weston, NETWORK COORDINATOR.METER/RELAY CRAFTSMAN 12/03/2023 12:08 AM Signed Please call patient [...] Abs Lymph 1.00 - 4.00 k/uL 2.11 [place]% % 7.6 Abs [place] <0.87 k/uL 0.82 Eosin% % 0.1 Abs [...] Date Reviewed: 12/01/2023 Reviewed by: Nidia Weston APRN.METER/RELAY CRAFTSMAN - Fully Assessed Reason for Visit: Results [95] Primary Visit Diagnosis:Rheumatoid arthritis 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) [M05.79] Order(s):CBC + DIFF [SQCBCDIF] Order #: [id number] FUTURE C-REACTIVE PROTEIN (CRP) [SQCRP] Order #: [id number] FUTURE SED RATE WESTERGREN [SQWSR] Order #: [id number] FUTURE ALK PHOS ISOENZYM BL [SQALKISO] Order #: [id number] FUTURE Prescriptions as of 12/03/2023 - celecoxib [...] lisinopril (ZESTRIL, (more content not included)... Normal [facility] 25(OH)D3 SerPl-mCncon 2023 25-hydroxyvitamin D3 [Mass/Vol] 63.0 ng/mL Normal 31.0-80.0 [facility] Comment on above: Order Comment: Quinn felder Type: BLOOD SPECIMENOrdering Facility: [facility] Address: [address] [place] [address] Result Comment: Clas sification of 25 [place] Vitamin D status: Deficiency/Insufficiency: < or = 30 ng/ml. Sufficiency/Optimal Levels: 31-80 ng/mL Toxicity: > 100 ng/mL. Test performed by chemiluminescent immunoassay. Performed By: #### 1 989-3 ####[facility] [id number] [address] STATES OF [facility] BLOOD TB SCREENon 12-01-2023 M. tuberculosis tuberculin stim IFN-g Ql (Bld) Negative Normal [facility] Comment on above: Order Comment: Quinn [facility] Type: BLOOD SPECIMENOrdering Facility: [facility] Address: [address] [place] [address] Performed By: #### I NFTBP ####[facility] [id number] [place] [address] [place] MITOGEN MINUS NIL 3.58 IU/mL Normal >=0.50 [facility] Comment on above: Order Comment: Quinn [facility] Type: BLOOD SPECIMENOrdering Facility: [facility] Address: [address] [place] [address] Performed By: #### I NFTBP ####[facility] [id number] [address] STATES OF [facility] TB GAMMA INTERPRETATION Infection with M . tuberculosis complex is unlikely. If latent tuberculosis infection is highly suspected, a negative result does not rule out the infection. Specimens from immunocompromised patients and those <5 years of age may show false negative results. In case of a contact investigation, please repeat 8-12 weeks after a known exposure. Normal [facility] Comment on above: Order Comment: Speci men Type: BLOOD SPECIMENOrdering Facility: [facility] Address: [address] [place] [address] Performed By: #### I NFTBP ####[facility] LABCLIA [id number] [place] [address] [place] TB NIL 0.04 IU/mL Normal <=8.00 [facility] Comment on above: Order Comment: Speci men Type: BLOOD SPECIMENOrdering Facility: [facility] Address: [address] [place] [address] Performed By: #### I NFTBP ####[facility] LABCLIA [id number] [place] [address] [place] TB1 AG MINUS NIL 0.00 IU/mL Normal <0.35 [facility] Comment on above: Order Comment: Speci men Type: BLOOD SPECIMENOrdering Facility: [facility] Address: [address] [place] [address] Performed By: #### I NFTBP ####[facility] LABCLIA [id number] [place] [address] [place] TB2 AG MINUS NIL 0.02 IU/mL Normal <0.35 [facility] Comment on above: Order Comment: Speci men Type: BLOOD SPECIMENOrdering Facility: [facility] Address: [address] [place] [address] Performed By: #### I NFTBP ####[facility] LABIA [id number] [place] [address] [place] CBC W Auto Differential pane l (Bld)on 12-01-2023 Basophils (Bld) [#/Vol] 0.05 10*3/uL Normal <0.11 [facility] Comment on above: Order Comment: Speci men Type: BLOOD SPECIMENOrdering Facility: [facility] Address: [address] [place], [place] [address] Performed By: #### 5 7021-8, 4536-7 ####[facility] LABCLIA [id number] [place] [address] [place] Basophils/100 WBC (Bld) 0.5 % Normal C [facility] Comment on above: Order Comment: Speci men Type: BLOOD SPECIMENOrdering Facility: [facility] Address: [address] [place] [address] Performed By: #### 5 7021-8, 4536-7 ####[facility] LABCLIA [id number] [place] [address] [place] Differential cell count method Nom (Bld) Auto Normal [facility] Comment on above: Order Comment: Speci men Type: BLOOD SPECIMENOrdering Facility: [facility] Address: [address] [place] [address] Performed By: #### 5 7021-8, 7 ####[facility] LABCLIA [id number] [place] [address] [place] Eosinophils (Bld) [#/Vol] 10*3/uL Normal <0.46 [facility] Comment on above: Order Comment: Speci men Type: BLOOD SPECIMENOrdering Facility: [facility] Address: [address] [place] [address] Performed By: #### 5 7021-8, 7 ####[facility] LABCLIA [id number] [place] [address] [place] Eosinophils/100 WBC (Bld) 0.1 % Normal [facility] Comment on above: Order Comment: Speci men Type: BLOOD SPECIMENOrdering Facility: [facility] Address: [address] [place] [address] Performed By: #### 5 7021-8, 4536-7 ####[facility] LABCLIA [id number] [place] [address] [place] Erythrocyte distribution width (RBC) [Ratio] 13.1 % Normal 11.5-15.0 [facility] Comment on above: Order Comment: Speci men Type: BLOOD SPECIMENOrdering Facility: [facility] Address: [address] [place] [address] Performed By: #### 5 7021-8, 7 ####[facility] LABCLIA [id number] [place] [address] [place] Hematocrit (Bld) [Volume fraction] 36.8 % Low 39.0-51.0 [facility] Comment on above: Order Comment: Speci men Type: BLOOD SPECIMENOrdering Facility: [facility] Address: [address] [place] [address] Performed By: #### 5 7021-8, 7 ####[facility] LABCLIA [id number] [place] [address] [place] Hemoglobin (Bld) [Mass/Vol] 11.6 g/dL Low 13.0-17.0 [facility] Comment on above: Order Comment: Speci men Type: BLOOD SPECIMENOrdering Facility: [facility] Address: [address] [place] [address] Performed By: #### 5 7021-8, 7 ####[facility] LABCLIA [id number] [place] [address] [place] Immature granulocytes (Bld) [#/Vol] 10*3/uL Normal <0.10 [facility] Comment on above: Order Comment: Speci men Type: BLOOD SPECIMENOrdering Facility: [facility] Address: [address] [place] [address] Performed By: #### 5 7021-8, 7 ####[facility] LABCLIA [id number] [place] [address] [place] Immature granulocytes/100 WBC (Bld) 0.2 % Normal [facility] Comment on above: Order Comment: Speci men Type: BLOOD SPECIMENOrdering Facility: [facility] Address: [address] [place] [address] Performed By: #### 5 7021-8, 4537-7 ####[facility] LABCLIA [id number] [place] [address] [place] Lymphocytes (Bld) [#/Vol] 2.11 10*3/uL Normal 1.00-4.0 0 [facility] Comment on above: Order Comment: Speci men Type: BLOOD SPECIMENOrdering Facility: [facility] Address: [address] [place] [address] Performed By: #### 5 7021-8, 4536-7 ####[facility] LABCLIA [id number] [place] [address] [place] Lymphocytes/100 WBC (Bld) 19.5 % Normal [facility] Comment on above: Order Comment: Speci men Type: BLOOD SPECIMENOrdering Facility: [facility] Address: [address] [place] [address] Performed By: #### 5 7021-8, 4536-7 ####[facility] LABCLIA [id number] [place] [address] [place] MCH (RBC) [Entitic mass] 29.1 pg Normal 26.0-34.0 [facility] Comment on above: Order Comment: Speci men Type: BLOOD SPECIMENOrdering Facility: [facility] Address: [address] [place] [address] Performed By: #### 5 7021-8, 7-7 ####[facility] LABCLIA [id number] [place] [address] [place] MCHC (RBC) [Mass/Vol] 31.5 g/dL Normal 30.5-36.0 [facility] Comment on above: Order Comment: Speci men Type: BLOOD SPECIMENOrdering Facility: [facility] Address: [address] [place] [address] Performed By: #### 5 7021-8, 7-7 ####[facility] LABCLIA [id number] [place] [address] [place] MCV (RBC) [Entitic vol] 92.2 fL Normal 80.0-100.0 C [facility] Comment on above: Order Comment: Speci men Type: BLOOD SPECIMENOrdering Facility: [facility] Address: [address] [place] [address] Performed By: #### 5 7021-8, 4536-7 ####[facility] LABCLIA [id number] [place] [address] [place] Monocytes (Bld) [#/Vol] 0.82 10*3/uL Normal <0.87 [facility] Comment on above: Order Comment: Speci men Type: BLOOD SPECIMENOrdering Facility: [facility] Address: [address] [place] [address] Performed By: #### 5 7021-8, 4536-7 ####[facility] LABCLIA [id number] [place] [address] [place] Monocytes/100 WBC (Bld) 7.6 % Normal C [facility] Comment on above: Order Comment: Speci men Type: BLOOD SPECIMENOrdering Facility: [facility] Address: [address] [place] [address] Performed By: #### 5 7021-8, 4536-7 ####[facility] LABCLIA [id number] [place] [address] [place] Neutrophils (Bld) [#/Vol] 7.83 10*3/uL High 1.45-7.5 0 [facility] Comment on above: Order Comment: Speci men Type: BLOOD SPECIMENOrdering Facility: [facility] Address: [address] [place] [address] Performed By: #### 5 7021-8, 7-7 ####[facility] LABCLIA [id number] [place] [address] [place] Neutrophils/100 WBC (Bld) 72.1 % Normal [facility] Comment on above: Order Comment: Speci men Type: BLOOD SPECIMENOrdering Facility: [facility] Address: [address] [place] [address] Performed By: #### 5 7021-8, 4537-7 ####[facility] LABCLIA [id number] [place] [address] [place] Nucleated RBC (Bld) [#/Vol] 10*3/uL Normal <0.01 [facility] Comment on above: Order Comment: Speci men Type: BLOOD SPECIMENOrdering Facility: [facility] Address: [address] [place] [address] Performed By: #### 5 7021-8, 4537-7 ####[facility] LABCLIA [id number] [place] [address] [place] Nucleated RBC/100 WBC (Bld) [Ratio] 0.0 /100 WBC Normal [facility] Comment on above: Order Comment: Speci men Type: BLOOD SPECIMENOrdering Facility: [facility] Address: [address] [place] [address] Performed By: #### 5 7021-8, 4537-7 ####[facility] LABCLIA [id number] [place] [address] [place] Platelet mean volume (Bld) [Entitic vol] 9.2 fL Normal 9.0-12.7 [facility] Comment on above: Order Comment: Speci men Type: BLOOD SPECIMENOrdering Facility: [facility] Address: [address] [place] [address] Performed By: #### 5 7021-8, 4537-7 ####[facility] LABCLIA [id number] [place] [address] [place] Platelets (Bld) [#/Vol] 497 10*3/uL High 150-400 [facility] Comment on above: Order Comment: Speci men Type: BLOOD SPECIMENOrdering Facility: [facility] Address: [place] [address] Performed By: #### 5 7021-8, 4537-7 ####[facility] LABCLIA [id number] [place] [address] [place] RBC (Bld) [#/Vol] 3.99 10*6/uL Low 4.20-6.00 [facility] Comment on above: Order Comment: Speci men Type: BLOOD SPECIMENOrdering Facility: [facility] Address: [place] [address] Performed By: #### 5 7021-8, 4537-7 ####[facility] LABCLIA [id number] [place] [address] [place] WBC (Bld) [#/Vol] 10.84 10*3/uL Normal 3.70-11.00 [facility] Comment on above: Order Comment: Speci men Type: BLOOD SPECIMENOrdering Facility: [facility] Address: [place] [address] Performed By: #### 5 7021-8, 4537-7 ####[facility] LABCLIA [id number] [place] [address] [place] CNOVon 12-01-2023 CNOV Office Visit (ANGEL ) ----- JAM TOSCANO ([id number]) 1965 Griselda Date Time Provider Department 12/01/23 3:30 PM NIDIA WESTON During your visit today, we recorded the following information about you: Pulse Blood pressure Weight 92/minute 122/76 72.8 kg Nidia Weston, [employer] 01/11/2024 11:15 PM Signed Follow up Telephone [...] rom shoulders. Left elbow. No dental concerns [facility] [phone] GI - colitis- has been calm SSZ [...] Jagdish grace (more content not included)... Normal [facility] CRP SerPl-mCncon 12-01-2023 CRP [Mass/Vol] 3.9 mg/dL High <0.9 [facility] Comment on above: Order Comment: Speci men Type: BLOOD SPECIMENOrdering Facility: [facility] Address: [address] [place] [address] Performed By: #### 2 4323-06, 1988-03 ####[facility] LABCLIA [id number] [place] [address] [place] Comprehensive metabolic 2000 panelon 12-01-2023 Albumin [Mass/Vol] 3.9 g/dL Normal 3.9-4.9 [facility] Comment on above: Order Comment: Speci men Type: BLOOD SPECIMENOrdering Facility: [facility] Address: [address] [place] [address] Performed By: #### 2 4323-06, 1988-03 ####[facility] LABCLIA [id number] [place] [address] [place] ALP [Catalytic activity/Vol] 171 U/L High 38-113 [facility] Comment on above: Order Comment: Speci men Type: BLOOD SPECIMENOrdering Facility: [facility] Address: [address] [place] [id number] Performed By: #### 2 4323-06, 1988-03 ####[facility] LABCLIA [id number] [address] [address] [place] ALT [Catalytic activity/Vol] 22 U/L Normal 10-54 [facility] Comment on above: Order Comment: Speci men Type: BLOOD SPECIMENOrdering Facility: [facility] Address: [address] [place] [address] Performed By: #### 2 4323-06, 1988-03 ####[facility] LABCLIA [id number] [place] [id number] [place] Anion gap [Moles/Vol] 12 mmol/L Normal 9-18 [facility] Comment on above: Order Comment: Speci men Type: BLOOD SPECIMENOrdering Facility: [facility] Address: [address] [place] [address] Performed By: #### 2 43201-21, 1988-03 ####[facility] LABCLIA [id number] [place] [address] [place] AST [Catalytic activity/Vol] 31 U/L Normal 14-40 [facility] Comment on above: Order Comment: Speci men Type: BLOOD SPECIMENOrdering Facility: [facility] Address: [address] [place] [address] Performed By: #### 2 43201-21, 1988-03 ####[facility] LABCLIA [id number] [place] [address] [place] Bilirubin [Mass/Vol] 0.3 mg/dL Normal 0.2-1.3 [facility] Comment on above: Order Comment: Speci men Type: BLOOD SPECIMENOrdering Facility: [facility] Address: [address] [place] [address] Performed By: #### 2 43201-21, 1988-03 ####[facility] LABCLIA [id number] [place] [address] [place] Calcium [Mass/Vol] 10.2 mg/dL Normal 8.5-10.2 [facility] Comment on above: Order Comment: Speci men Type: BLOOD SPECIMENOrdering Facility: [facility] Address: [address] [place] [address] Performed By: #### 2 43201-21, 1988-03 ####[facility] LABCLIA [id number] [place] [id number] [place] Chloride [Moles/Vol] 106 mmol/L High 97-105 [facility] Comment on above: Order Comment: Speci men Type: BLOOD SPECIMENOrdering Facility: [facility] Address: [address] [place] [address] Performed By: #### 2 43201-21, 1988-03 ####[facility] LABIA [id number] [address] [address] [place] CO2 [Moles/Vol] 25 mmol/L Normal 22-30 [facility] Comment on above: Order Comment: Speci men Type: BLOOD SPECIMENOrdering Facility: [facility] Address: [address] [place] [address] Performed By: #### 2 4323-06, 1988-03 ####[facility] LABIA [id number] [place] [address] [place] Creatinine [Mass/Vol] 0.92 mg/dL Normal 0.73-1.22 [facility] Comment on above: Order Comment: Speci men Type: BLOOD SPECIMENOrdering Facility: [facility] Address: [address] [place] [address] Performed By: #### 2 4323-06, 1988-03 ####[facility] LABIA [id number] [place] [address] [place] Creatinine and Glomerular filtration rate.predicted panel (S/P/Bld) 96 mL/min/1.73m??? Normal >=60 [facility] Comment on above: Order Comment: Speci men Type: BLOOD SPECIMENOrdering Facility: [facility] Address: [address] [place] [address] Result Comment: Fauzia mated Glomerular Filtration Rate [...] GFR. Performed By: #### 2 43201-21, 1988-03 ####[facility] LABCLIA [id number] [address] [address] [place] Glucose [Mass/Vol] 101 mg/dL High 74-99 [facility] Comment on above: Order Comment: Speci men Type: BLOOD SPECIMENOrdering Facility: [facility] Address: [address] [place] [address] Result Comment: The [place] [employer] (ADA) provides guidance for cutoff [...] Standards of Medical Care in Diabetes 2016, [place] [employer]. Diabetes Care. 2016.39(Suppl 1). Performed By: #### 2 43201-21, 1988-03 ####[facility] LABCLIA [id number] [place] [id number] [place] Potassium [Moles/Vol] 4.1 mmol/L Normal 3.7-5.1 [facility] Comment on above: Order Comment: Speci men Type: BLOOD SPECIMENOrdering Facility: [facility] Address: [address] [place] [id number] Performed By: #### 2 4323-06, 1988-03 ####[facility] LABCLIA [id number] [address] [address] [place] Protein [Mass/Vol] 8.0 g/dL Normal 6.3-8.0 [facility] Comment on above: Order Comment: Speci men Type: BLOOD SPECIMENOrdering Facility: [facility] Address: [address] [place] [address] Performed By: #### 2 4323-06, 1988-03 ####[facility] LABCLIA [id number] [place] [address] [place] Sodium [Moles/Vol] 143 mmol/L Normal 136-144 [facility] Comment on above: Order Comment: Speci men Type: BLOOD SPECIMENOrdering Facility: [facility] Address: [address] [place] [address] Performed By: #### 2 4323-8, 1988-03 ####[facility] LABIA [id number] [place] [address] [place] Urea nitrogen [Mass/Vol] 19 mg/dL Normal 9-24 [facility] Comment on above: Order Comment: Speci men Type: BLOOD SPECIMENOrdering Facility: [facility] Address: [address] [place] [address] Performed By: #### 2 4323-8, 1988-03 ####[facility] LABIA [id number] [place] [address] [place] ESR Westergren method (Bld) [Velocity]on 12-01-2023 ESR (Bld) [Velocity] 114 mm/h High 0-15 [facility] Comment on above: Order Comment: Latoyai men Type: BLOOD SPECIMENOrdering Facility: [facility] Address: [address] [place] [address] Performed By: #### 5 7021-8, 4537-7 ####[facility] LABIA [id number] [place] [address] [place] HBV core Ab Ser Qlon 024 HBV core Ab Ql (S) Negative Normal Negative [facility] Comment on above: Order Comment: Speci men Type: BLOOD SPECIMENOrdering Facility: [facility] Address: [address] [place] [address] Result Comment: No e vidence of current or past infection with Hepatitis B virus. Should recent infection be suspected, repeat testing may be considered 3-4 weeks after this draw. Performed By: #### 1 6933-4, 5-3, 40901-4 ####[facility] LABCLIA [id number] [place] [address] [place] HBV surface Ab Ql (S)on 11-16 HBV surface Ab Qn (S) <8.00 Normal [facility] Comment on above: Order Comment: Speci men Type: BLOOD SPECIMENOrdering Facility: [facility] Address: [address] [place] [address] Result Comment: <8 m IU/mL: No serological evidence of immunity to Hepatitis B Virus. >/= 8 to <12 mIU/mL: No serological evidence of immunity to Hepatitis B Virus. >/= 12 mIU/mL: Consistent with serological evidence of immunity to Hepatitis B Virus. Performed By: #### 1 6933-4, 3, ####[facility] LABIA [id number] [address] [place] HBV surface Ab Ser Qlon 11-16 HBV surface Ab Ql (S) Negative Normal [facility] Comment on above: Order Comment: Speci men Type: BLOOD SPECIMENOrdering Facility: [facility] Address: [address] [place] [address] Result Comment: No s erological evidence of immunity to Hepatitis B Virus. Performed By: #### 1 6933-4, 5194-3, 71663-2 ####[facility] LABCLIA [id number] [place] [address] [place] HBV surface Ag Ser Qlon 11-16 HBV surface Ag Ql (S) Negative Normal Negative [facility] Comment on above: Order Comment: Speci men Type: BLOOD SPECIMENOrdering Facility: [facility] Address: [address] [place] [address] Performed By: #### 1 6933-4, 5195-3, 44544-7 ####[facility] LABCLIA [id number] [address] [place] HCV Ab Ser Qlon 12-01-2023 HCV Ab Ql (S) Negative Normal Negative [facility] Comment on above: Order Comment: Speci men Type: BLOOD SPECIMENOrdering Facility: [facility] Address: [address] [place] [address] Result Comment: The result suggests no evidence of active infection with Hepatitis C virus. Should recent infection be suspected, repeat testing may be considered 4-6 weeks after this draw. Performed By: #### 1 6128-1 ####[facility] LABCLIA [id number] [facility] [id number] [id number] [facility] ED Note-Physicianon 11-28-19 24 ED [...] 3 day(s), 15 tab(s), Refill(s) 0, [facility]/pharmacy #[id number], 168, cm, 11/27/23 10:26:00 EST, Height/Length Dosing, 73.8, kg, 11/27/23 10:26:00 EST, Weight Dosing Orders: methocarbamol, 1,500 mg = 2 tab(s), Oral, TID, X 3 day(s), # 18 tab(s), Refills(s) 0, Pharmacy: [facility]/pharmacy #[id number], 168, cm, 11/27/23 10:26:00 EST, [...] [place] In 3 days 11/30/[address] [facility] [place] [address] [place] [address]- Business (1) Additional Instructions: Patient Education Rheumatoid Arthritis Attestation Patient seen and evaluated by the physician assurance assistant. Attending physician was present in the emergency department and supervised care. This visit was performed by both the physician and an APC. I performed all aspects of the MDM as documented. This report was transcribed using voice recognition software. Every effort was made to ensure accuracy, however, inadvertently computerized dredge operator supervisor mistakes may be present. Appropriate healthcare PPE [...] Prostate calculus Rectal bleed Ulcerative colitis, universal Hazel ulcerative colitis Urethral stone Historical Extreme obesity Ulcerative colitis Procedure/Surgical History Colonoscopy (03/23/2023), Cystoscopy (02/04/2021), Colonoscopy, Hernia repair, Procedure on hip, Procedure on knee. Medicatio (more content not included)... Normal [facility] Comment on above: Result Comment: Elec tronically Signed By: Juancarlos Josue PA-C\.br\Date and Time Signed: 11/27/23 18:42 EST\.br\Electronically Co-Signed By: Kavon Johnson DO\.br\Date and Time Co-Signed: 11/28/23 17:15 EST Auto Diffon 11-27-2023 Basophils/100 WBC (Bld) 0.7 % Normal 0.0-2.0 F [facility] Comment on above: Order Comment: Order Added by Discern Expert. Performed By: #### 2 [id number], [id number], [id number], [id number] ####[facility] [id number] [place] [address] Basophils/Leukocytes Auto (Bld) [Pure # fraction] 0.1 E9/L Normal 0.0-0.2 [facility] Comment on above: Order Comment: Order Added by Discern Expert. Performed By: #### 2 825053, 2147879, 64144778, 0423968 ####[address] [place] [address] Eosinophils/100 WBC (Bld) 0.0 % Normal 0.0-8.0 [facility] Comment on above: Order Comment: Order Added by Discern Expert. Performed By: #### 2 427562, 1419599, 31711523, 4132337 ####[address] [place] [address] Eosinophils/Leukocytes Auto (Bld) [Pure # fraction] 0.0 E9/L Normal 0.0-0.5 [facility] Comment on above: Order Comment: Order Added by Discern Expert. Performed By: #### 2 798058, 7842424, 48807439, 4217282 ####[address] [address] Lymphocytes/100 WBC (Bld) 18.8 % Normal 14.0-50.0 [facility] Comment on above: Order Comment: Order Added by Discern Expert. Performed By: #### 2 456125, 6315670, 86015079, 5525653 ####[address] [address] Lymphocytes/Leukocytes Auto (Bld) [Pure # fraction] 1.8 E9/L Normal 1.0-4.0 [facility] Comment on above: Order Comment: Order Added by Discern Expert. Performed By: #### 2 036065, 2245444, 03380007, 9183148 ####[address] [address] Monocytes/100 WBC (Bld) 9.3 % Normal 4.0-14.0 [facility] Comment on above: Order Comment: Order Added by Discern Expert. Performed By: #### 2 395314, 2340691, 47961379, 8973437 ####[address] [address] Monocytes/Leukocytes Auto (Bld) [Pure # fraction] 0.9 E9/L Normal 0.2-1.0 [facility] Comment on above: Order Comment: Order Added by Discern Expert. Performed By: #### 2 395128, 3971863, 77472110, 7167371 ####[facility] [address] [place] [address] Neutrophils/100 WBC (Bld) 71.2 % Normal 36.0-75.0 [facility] Comment on above: Order Comment: Order Added by Discern Expert. Performed By: #### 2 057869, 5239178, 79664936, 9947906 ####[facility] [address] [place] [address] Neutrophils/Leukocytes Auto (Bld) [Pure # fraction] 6.9 E9/L Normal 2.0-7.5 [facility] Comment on above: Order Comment: Order Added by Discern Expert. Performed By: #### 2 019252, 0134028, 31518334, 3455605 ####[facility] [address] [place] [address] BMPon 11-27-2023 Anion gap [Moles/Vol] 13 mmol/L Normal 6-16 [facility] Comment on above: Performed By: #### 2 405912, 3922904, 41868430, 7568594 ####[facility] [address] [place] [address] BUN/Creat Ratio 21 No Units High 10-20 [facility] Comment on above: Performed By: #### 2 528111, 9388349, 55987627, 9266628 ####[facility] [address] [place] [address] Calcium [Mass/Vol] 9.2 mg/dL Normal 8.9-11.1 [facility] Comment on above: Performed By: #### 2 829477, 7092069, 39128126, 7784970 ####[facility] [address] [place] [address] Chloride [Moles/Vol] 105 mmol/L Normal 101-111 [facility] Comment on above: Performed By: #### 2 693573, 0095875, 46250118, 5181721 ####[facility] [address] [place] [address] CO2 [Moles/Vol] 24 mmol/L Normal 21-31 [facility] Comment on above: Performed By: #### 2 397155, 4353565, 12417056, 9163446 ####[facility] [address] [place] [address] Creatinine [Mass/Vol] 0.7 mg/dL Normal 0.5-1.3 [facility] Comment on above: Performed By: #### 2 818805, 6254195, 81095004, 0539720 ####[facility] [address] [place] [address] Glucose [Mass/Vol] 121 mg/dL Normal 55-199 [facility] Comment on above: Performed By: #### 2 855979, 6414006, 84394407, 3991252 ####[facility] [address] [place] [address] Potassium [Moles/Vol] 3.9 mmol/L Normal 3.5-5.3 [facility] Comment on above: Performed By: #### 2 773096, 6285368, 34499356, 0606327 ####[facility] [address] [place] [address] Sodium [Moles/Vol] 138 mmol/L Normal 135-145 [facility] Comment on above: Performed By: #### 2 355608, 8553070, 85517199, 1926356 ####[facility] [address] [place] [address] Urea nitrogen [Mass/Vol] 15 mg/dL Normal 5-21 [facility] Comment on above: Performed By: #### 2 379418, 0345230, 19739582, 0326506 ####[facility] [address] [place] [address] CBC w/ Auto Diffon 4 Erythrocyte distribution width (RBC) [Ratio] 14.0 % Normal 10.9-14.2 [facility] Comment on above: Performed By: #### 2 336636, 6233744, 46804261, 0820144 ####[address] [place] [address] Hematocrit (Bld) [Volume fraction] 35.0 % Low 37.7-49.0 [facility] Comment on above: Performed By: #### 2 414068, 2162522, 34177904, 3304147 ####[facility] [address] [place], [place] [address] Hemoglobin (Bld) [Mass/Vol] 11.7 g/dL Low 13.5-17.5 [facility] Comment on above: Performed By: #### 2 128615, 4040288, 93719871, 6000703 ####[address] MCH (RBC) [Entitic mass] 29.1 pg Normal 27.0-34.0 [facility] Comment on above: Performed By: #### 2 157920, 3103843, 64647423, 3923772 ####[place] [address] MCHC (RBC) [Mass/Vol] 33.3 g/dL Normal 31.4-36.0 [facility] Comment on above: Performed By: #### 2 040289, 3739254, 08675886, 4556696 ####[address] [address] MCV (RBC) [Entitic vol] 87.3 fL Normal 80.0-100.0 [facility] Comment on above: Performed By: #### 2 518660, 4602867, 49455674, 0791457 ####[facility] [address] [place] [address] Platelet mean volume (Bld) [Entitic vol] 6.3 fL Low 6.4-10.8 [facility] Comment on above: Performed By: #### 2 824099, 2505631, 23699102, 6074425 ####[facility] [address] [place] [address] Platelets (Bld) [#/Vol] 462.0 E9/L Normal 150. 0-500. 0 [facility] Comment on above: Performed By: #### 2 673788, 3280263, 39204266, 2505535 ####[facility] [address] [place] [address] RBC (Bld) [#/Vol] 4.0 E12/L Low 4.3-5.9 [facility] Comment on above: Performed By: #### 2 802324, 5942172, 16929681, 2693719 ####[facility] [address] [place] [address] WBC corrected for nucl RBC Auto (Bld) [#/Vol] 9.7 E9/L Normal 4.0-11.0 [facility] Comment on above: Performed By: #### 2 126972, 9414544, 96488934, 7840054 ####[address] [place] [address] Consent for Treatmenton 11-16 Consent for Treatment [id number]#1.00TIFF Normal [facility] Discharge Instructionson Discharge Instructions [id number]#1.00TIFF Normal [facility] ED Clinical Summaryon 2023 ED Clinical Summary (Inserted Image. Perla ble to display) [address] [address] ED Clinical Summary Person Information Name: JAM TOSCANO [facility] Age: 58 Years : 1965 Sex: Male Language: Nigerien PCP: Jose L Lackey MD Marital Status: [...] 11/27/2023 12:48:44 11/27/2023 12:48:44 11/27/2023 12:48:44 ADDRESS: [address] [place] [address] [facility] [id number] PHYS DOC NOTES: MEDICAL INFORMATION: Prescriptions Given: New Medications [id number], [address] [place], [place] [id number], [phone] acetaminophen-oxycodone (Percocet 5 mg-325 mg oral tablet) [...] up: With: Address: When: Jose L Lackey [address] [place] [address], [facility] [address] Business (1) In 3 days 11/30/2023 DIAGNOSIS: Joint pain; Rheumatoid arthritis Normal [facility] ED Patient Education Noteon 11-27-2023 ED Patient [...] in your joints. General instructions ? Take oswu-hxo-hdrfmgm and prescription medicines only as told by your health care provider. ? Keep all follow-up visits. This is important. Where to find more information ? [employer]: [email or web address] ? [employer]: [...] than y (more content not included)... Normal [facility] ED Patient Summaryon 024 ED Patient Summary (Inserted Image. Perla ble to display) [address] [address] Patient Discharge Instructions Person Information Name: JAM TOSCANO Age: 58 Years Arrival Date: 11/27/2023 10:14:59 Discharge Diagnosis: Joint pain; Rheumatoid arthritis Primary Care Physician: Jose L Lackey MD Provider Information Primary Provider: Kavon Johnson DO Advanced Commission Broker:Juancarlos Josue PA-C The exam and treatment you received in the Emergency Department were for an urgent problem and are not intended as complete care. It is important that you follow up with a doctor, nurse practitioner, or physician?s assurance assistant for ongoing care. If your symptoms [...] Instructions: With: Address: When: Jose L Lackey [address] [place] [address], [facility] [address] Business (1) In 3 days 11/30/2023 In the event that this physician does not participate in your insurance network, please consult with your insurance company to find a nearby participating provider. Patient Education Materials: Rheumatoid Arthritis A MESSAGE TO ALL PATIENTS REGARDING OPIOIDS PRESCRIPTION OPIOIDS: WHAT YOU NEED TO KNOW Prescription opioids can be used to help relieve fqeflabg-lw-lfzmed pain and are often prescribed following a [...] be struggling with addiction, tell your health childcare attendant and ask for guidance or call [facility]?S National Helpline at 1-554-645-VWO (more content not included)... Normal [facility] eGFRon 11-27-2023 GFR/1.73 sq M.predicted among non-blacks MDRD (S/P/Bld) [Vol rate/Area] mL/min/{1.73_m2} Normal >=59 [facility] Comment on above: Order Comment: Order added by Discern Expert. Performed By: #### 2 937099, 3852553, 59569682, 2255454 ####[facility] [address] [place] [address] ED Note-Physicianon 11-08-20 ED Note-Physician Basic Information [...] # 20 tab(s), Refills(s) 0, Pharmacy: [facility]/pharmacy #[id number], 167, cm, 11/04/23 17:47:00 EST, Height/Length Dosing, 73.5, kg, 11/04/23 17:47:00 EST, Weight Dosing 2. Hypokalemia (E87.6: Hypokalemia) Ordered: amoxicillin-clavulanate, = 1 tab(s), Oral, q12hr, X 10 day(s), # 20 tab(s), Refills(s) 0, Pharmacy: [facility]/pharmacy #[id number], 167, cm, 11/04/23 17:47:00 EST, Height/Length Dosing, 73.5, kg, 11/04/23 17:47:00 EST, Weight Dosing 4. Colitis (K52.9: Noninfective gastroenteritis and colitis, unspecified) Ordered: amoxicillin-clavulanate, = 1 tab(s), Oral, q12hr, X 10 day(s), # 20 tab(s), Refills(s) 0, Pharmacy: [facility]/pharmacy #6177, 167, cm, 11/04/23 17:47:00 EST, [...] Level PT & PTT Rapid COVID Antigen ([facility]) Saline Lock Insert Troponin 0 Hr. UA [...] MD In 3 days 11/07/2023 EST [address] [place] [address]- Additional Instructions: Patient Education COVID-19 Colitis Hyp (more content not included)... Normal [facility] Comment on above: Result Comment: Elec tronically Signed By: Barbara Brand PA-C\.br\Date and Time Signed: 11/04/23 20:21 EST\.br\Electronically Co-Signed By: Kavon Johnson DO\.br\Date and Time Co-Signed: 11/08/23 19:04 EST Reportability Response - Pub lic Healthon 11-08-2023 Reportability Response - Public Health {lg-2o-4c-b1-n0-m8-48-3d- x0-ib-3v-ag-mt-p6-f5-2f}X ML Normal [facility] Auto Diffon 11-04-2023 Basophils/100 WBC (Bld) 0.3 % Normal 0.0-2.0 [facility] Comment on above: Order Comment: Order Added by Discern Expert. Performed By: #### 1 3281144, 5453093, 14748714, 82472943, 0008637, 3426721, 7000122, 2152110 ####[facility] [address] [place] [address] Basophils/Leukocytes Auto (Bld) [Pure # fraction] 0.0 E9/L Normal 0.0-0.2 [facility] Comment on above: Order Comment: Order Added by Discern Expert. Performed By: #### 1 6858280, 2882367, 00965868, 84920667, 9045225, 5119330, 5844279, 9015585 ####[facility] [address] [place] [address] Eosinophils/100 WBC (Bld) 0.0 % Normal 0.0-8.0 [facility] Comment on above: Order Comment: Order Added by Discern Expert. Performed By: #### 1 1201778, 6149694, 74806490, 56605195, 4926203, 9307398, 8335564, 9673664 ####[place] [address] [address] Eosinophils/Leukocytes Auto (Bld) [Pure # fraction] 0.0 E9/L Normal 0.0-0.5 [facility] Comment on above: Order Comment: Order Added by Discern Expert. Performed By: #### 1 9744881, 8944249, 36937175, 07722917, 1545287, 7116725, 6097927, 0714828 ####[address] [address] Lymphocytes/100 WBC (Bld) 18.0 % Normal 14.0-50.0 [facility] Comment on above: Order Comment: Order Added by Discern Expert. Performed By: #### 1 5597144, 1511127, 09530749, 63338170, 6392941, 0712831, 7787967, 7149995 ####[address] [address] Lymphocytes/Leukocytes Auto (Bld) [Pure # fraction] 1.1 E9/L Normal 1.0-4.0 [facility] Comment on above: Order Comment: Order Added by Discern Expert. Performed By: #### 1 0418479, 6772030, 65623382, 03839495, 0946439, 2821000, 6002586, 3923378 ####[address] [address] Monocytes/100 WBC (Bld) 8.0 % Normal 4.0-14.0 [facility] Comment on above: Order Comment: Order Added by Discern Expert. Performed By: #### 1 5354467, 8300880, 16663635, 34047448, 0593842, 2113235, 5520535, 3689749 ####[address] [address] Monocytes/Leukocytes Auto (Bld) [Pure # fraction] 0.5 E9/L Normal 0.2-1.0 [facility] Comment on above: Order Comment: Order Added by Discern Expert. Performed By: #### 1 8754565, 5288975, 31534429, 90458800, 5510767, 7735941, 7593249, 1221722 ####[address] [place] [address] Neutrophils/100 WBC (Bld) 73.7 % Normal 36.0-75.0 [facility] Comment on above: Order Comment: Order Added by Discern Expert. Performed By: #### 1 7660165, 4235628, 21038147, 87138714, 3606836, 4655129, 4480422, 3485945 ####[facility] [address] [place] [address] Neutrophils/Leukocytes Auto (Bld) [Pure # fraction] 4.5 E9/L Normal 2.0-7.5 [facility] Comment on above: Order Comment: Order Added by Discern Expert. Performed By: #### 1 3803777, 4059469, 89200116, 58524017, 1265374, 9279535, 1923694, 3887176 ####[address] [address] CBC w/ Auto Diffon 3 Erythrocyte distribution width (RBC) [Ratio] 14.0 % Normal 10.9-14.2 [facility] Comment on above: Performed By: #### 1 1977662, 2140239, 58212718, 74225964, 0676147, 5816055, 3735526, 9562533 ####[address] [place] [address] Hematocrit (Bld) [Volume fraction] 33.4 % Low 37.7-49.0 [facility] Comment on above: Performed By: #### 1 4395680, 0903359, 68558430, 85010091, 1759520, 6917191, 9698343, 8875451 ####[facility] [address] [place] [address] Hemoglobin (Bld) [Mass/Vol] 11.3 g/dL Low 13.5-17.5 [facility] Comment on above: Performed By: #### 1 5400623, 8181316, 28166960, 63401285, 6440268, 8075528, 4598048, 1465556 ####[address] [place] [address] MCH (RBC) [Entitic mass] 30.4 pg Normal 27.0-34.0 [facility] Comment on above: Performed By: #### 1 8024302, 6248773, 66660946, 43743234, 4784593, 9892101, 4096371, 5458140 ####[address] [address] MCHC (RBC) [Mass/Vol] 33.9 g/dL Normal 31.4-36.0 [facility] Comment on above: Performed By: #### 1 2980652, 1613872, 22425253, 60800017, 0189998, 7672517, 8046187, 3277951 ####[place] [address] MCV (RBC) [Entitic vol] 89.7 fL Normal 80.0-100.0 [facility] Comment on above: Performed By: #### 1 2578742, 7749771, 10638831, 51076684, 6034879, 7989016, 1857498, 1693560 ####[address] [address] Platelet mean volume (Bld) [Entitic vol] 6.4 fL Normal 6.4-10.8 [facility] Comment on above: Performed By: #### 1 7965297, 8589967, 04681062, 89711861, 3635052, 7560676, 7326298, 1996875 ####[address] [address] Platelets (Bld) [#/Vol] 224.0 E9/L Normal 150. 0-500. 0 [facility] Comment on above: Performed By: #### 1 1860774, 8252989, 06626172, 31643892, 3484068, 4487659, 0520026, 3547005 ####[facility] [address] [place] [address] RBC (Bld) [#/Vol] 3.7 E12/L Low 4.3-5.9 [facility] Comment on above: Performed By: #### 1 6134148, 7320806, 82548344, 05233001, 7202402, 8720157, 2715226, 2606931 ####[facility] [address] [place] [address] WBC corrected for nucl RBC Auto (Bld) [#/Vol] 6.0 E9/L Normal 4.0-11.0 [facility] Comment on above: Performed By: #### 1 8868071, 7597094, 03170567, 97847490, 8820314, 6004154, 8083528, 8238477 ####[address] [address] CMPon 11-04-2023 Albumin [Mass/Vol] 3.4 g/dL Normal 3.3-5.0 [facility] Comment on above: Performed By: #### 1 9826269, 5834146, 40926981, 09095703, 9966582, 2257121, 8803953, 2456754 ####[address] [place] [address] Albumin/Globulin [Mass ratio] 1.1 {ratio} Normal 1.1-2.2 [facility] Comment on above: Performed By: #### 1 8436589, 4842644, 54523807, 53902717, 0943510, 7444129, 9221894, 2520852 ####[address] [place] [address] Alk Phos 106 Int._Unit/L High 21-98 [facility] Comment on above: Performed By: #### 1 8255160, 5111144, 61405084, 92993983, 5863052, 7780799, 9589676, 4662203 ####[facility] [address] [place] [address] ALT 19 Int._Unit/L Normal 6-46 [facility] Comment on above: Performed By: #### 1 0170639, 9660926, 46352401, 04112157, 2270438, 9713624, 2167487, 5327635 ####[facility] [address] [place] [address] Anion gap [Moles/Vol] 10 mmol/L Normal 6-16 [facility] Comment on above: Performed By: #### 1 2706363, 3111745, 94802135, 15450417, 3767191, 7782831, 7481467, 2693659 ####[facility] [address] [place] [address] AST 25 Int._Unit/L Normal 5-43 [facility] Comment on above: Performed By: #### 1 8880717, 1405404, 57133776, 16300440, 3360393, 0789614, 9531559, 5204502 ####[facility] [address] [place] [address] Bili Total 0.5 mg/dL Normal 0.0-1.1 [facility] Comment on above: Performed By: #### 1 5101573, 3533425, 82920255, 81076744, 1478584, 8585462, 0847892, 9563457 ####[facility] [address] [place] [address] BUN/Creat Ratio 13 No Units Normal 10-20 [facility] Comment on above: Performed By: #### 1 8713956, 9662857, 13458129, 49731920, 8222650, 6797726, 7614722, 2993024 ####[facility] [address] [place] [address] Calcium [Mass/Vol] 8.2 mg/dL Low 8.9-11.1 [facility] Comment on above: Performed By: #### 1 3983211, 8441383, 02587157, 11451634, 9589765, 8964779, 2501094, 8870194 ####[facility] [address] [place] [address] Chloride [Moles/Vol] 105 mmol/L Normal 101-111 [facility] Comment on above: Performed By: #### 1 7129112, 6231721, 45272058, 12578652, 3317568, 6523008, 5506700, 3317192 ####[facility] [address] [place] [address] CO2 [Moles/Vol] 26 mmol/L Normal 21-31 [facility] Comment on above: Performed By: #### 1 2675954, 7212534, 47891448, 02189251, 1698529, 1123642, 4811212, 3848403 ####[facility] [address] [place] [address] Creatinine [Mass/Vol] 0.9 mg/dL Normal 0.5-1.3 [facility] Comment on above: Performed By: #### 1 5102773, 5368592, 38308495, 76207772, 6963915, 5139379, 5518525, 3585800 ####[facility] [address] [place] [address] Globulin (S) [Mass/Vol] 3.0 g/dL Normal 1.4-4.0 F [facility] Comment on above: Performed By: #### 1 0213771, 5898665, 58115085, 72235714, 8659164, 9851499, 8985270, 0096099 ####[facility] [address] [place] [address] Glucose [Mass/Vol] 102 mg/dL Normal 55-199 [facility] Comment on above: Performed By: #### 1 1239274, 3483242, 97093777, 68609741, 8950541, 2055128, 8281166, 3251524 ####[facility] [address] [place] [address] Potassium [Moles/Vol] 3.3 mmol/L Low 3.5-5.3 [facility] Comment on above: Performed By: #### 1 7133323, 0111490, 03105443, 54153572, 7786123, 6306429, 6619414, 3546106 ####[facility] [address] [place] [address] Protein [Mass/Vol] 6.4 g/dL Normal 6.0-7.8 [facility] Comment on above: Performed By: #### 1 4285998, 6873636, 35358912, 91743777, 7706028, 9076367, 5248467, 7872111 ####[facility] [address] [place] [address] Sodium [Moles/Vol] 138 mmol/L Normal 135-145 [facility] Comment on above: Performed By: #### 1 3805144, 6643926, 87355883, 22506344, 2420313, 8365534, 3598871, 0404211 ####[facility] [address] [place] [address] Urea nitrogen [Mass/Vol] 12 mg/dL Normal 5-21 [facility] Comment on above: Performed By: #### 1 2214137, 9406290, 87345739, 44413681, 1117465, 9885443, 2608197, 2556140 ####[facility] [address] [place] [address] CT Abdomen/Pelvis w/ Contras ton 11-04-2023 CT [...] FINAL REPORT Dictated: 11/04/2023 7:52 pm Antony Addsion MD, V. Signed (Electronic Signature): 11/04/2023 7:52 pm Signed by: Antony Addison MD, V. Transcribed by: BERNARD Technologist: MEHREEN Technical Comments GFR (mL/min/1/73m2) n/a age Contrast: Isovue 300 Contrast amount in ml's: 100 Normal [facility] Consent for Treatmenton 10-17 Consent for Treatment [id number]#1.00TIFF Normal [facility] Discharge Instructionson Discharge Instructions [id number]#1.00TIFF Normal [facility] ED Clinical Summaryon 2022 ED Clinical Summary (Inserted Image. Perla ble to display) [place] [id number] ED Clinical Summary Person Information Name: JAM TOSCANO [facility] Age: 58 Years : 1965 Sex: Male Language: Nigerien PCP: Jose L Lackey MD Marital Status: [...] 11/04/2023 20:23:46 11/04/2023 20:23:46 11/04/2023 20:23:46 ADDRESS: [address] [place] [address] [address] [facility] [id number] PHYS DOC NOTES: MEDICAL INFORMATION: Prescriptions Given: New Medications [facility]/pharmacy #6177, [address] [place], [place] [id number], [phone] amoxicillin-clavulanate (Augmentin 875 mg oral tablet) 1 [...] With: Address: When: Jose L Lackey MD [address] [facility] [place] [address] [address] [place] [address] In 3 days 11/07/2023 DIAGNOSIS: 1:COVID-19; 2:Hypokalemia; 3:Pneumonia due to COVID-19 virus; 4:Colitis; Pneumonia due to coronavirus disease 2019 Normal [facility] ED Patient Education Noteon 11-04-2023 ED Patient [...] you start to feel better. ? Take aprw-irt-ifguqta and prescription medicines only as told by [...] provider. Document Revised: 07/09/2021 Document Reviewed: 07/09/2021 [employer] Patient Education ? 2022 [employer] Hypokalemia Hypokalemia means that the amount [...] through an (more content not included)... Normal [facility] ED Patient Summaryon 023 ED Patient Summary (Inserted Image. Perla ble to display) [place] [address] Patient Discharge Instructions Person Information Name: JAM TOSCANO Age: 58 Years Arrival Date: 11/04/2023 17:35:01 Discharge Diagnosis: 1:COVID-19; 2:Hypokalemia; 3:Pneumonia due to COVID-19 virus; 4:Colitis; Pneumonia due to coronavirus disease 2018 Primary Care Physician: Jos eL Lackey MD Provider Information Primary Provider: Kavon Johnson DO Advanced Commission Broker:None The exam and treatment you received in the Emergency Department were for an urgent problem and are not intended as complete care. It is important that you follow up with a doctor, nurse practitioner, or physician?s assurance assistant for ongoing care. If your symptoms [...] Address: When: Jose L Lackey MD [address] [place] [address] In 3 days 11/07/2023 In the event that this physician does not participate in your insurance network, please consult with your insurance company to find a nearby participating provider. Patient Education Materials: COVID-19; Colitis; Hypokalemia A MESSAGE TO ALL PATIENTS REGARDING OPIOIDS PRESCRIPTION OPIOIDS: WHAT YOU NEED TO KNOW Prescription opioids can be used to help relieve imzjqqxp-ah-oyzczr pain and are often prescribed following a [...] be struggling with addiction, tell your health childcare attendant and as (more content not included)... Normal [facility] Lactic Acidon 11-04-2023 Lactic Acid Lvl 1.0 mmol/L Normal 0.5-2.2 [facility] Comment on above: Performed By: #### 1 1979382, 3849606, 85128228, 68300167, 2426710, 2125609, 6118792, 0147679 ####[facility] [address] [place] [address] Magnesiumon 11-04-2023 Magnesium [Mass/Vol] 1.4 mg/dL Normal 1.3-2.4 [facility] Comment on above: Performed By: #### 1 1257828, 3399542, 64313829, 35099699, 3609375, 5813052, 0436600, 5744988 ####[facility] [address] [place] [address] PT & PTTon 11-04-2023 aPTT Coag (PPP) [Time] 34.0 second(s) Normal 25.1-36.5 [facility] Comment on above: Result Comment: Para meter [...] the same coagulation reagent and instrumentation as [facility]. Currently there are no coagulation studies available worldwide for children to 14 days, and no normal ranges. Heparin therapeutic range (represented by Anti-Factor Xa activity of 0.2 - 0.4 U/mL) corresponds to PTT of 56.6 - 109.0 sec. Performed By: #### 1 7468092, 7323683, 13553483, 05512671, 0346164, 2599971, 2878836, 6475577 ####[facility] [address] [place] [address] INR Coag (PPP) [Relative time] 1.2 {INR} Invalid Interpretation Code [facility] Comment on above: Result Comment: INR results are specifically intended to assess patients stabilized on long-term Anticoagulation therapy suggested INR?s ?Less Intensive Anticoagulation? 2.0 ? 3.0 Conventional Range 3.0 ? 4.5 Performed By: #### 1 2911941, 8281012, 32980277, 67433740, 9310712, 3995283, 2108412, 1847273 ####[facility] [address] [place] [address] PT Coag (PPP) [Time] 13.7 second(s) High 9.4-12.5 [facility] Comment on above: Result Comment: 15 d [...] the same coagulation reagent and instrumentation as [facility]. Currently there are no coagulation studies available worldwide for children to 14 days, and no normal ranges. Performed By: #### 1 0227276, 0650805, 21705364, 87474762, 0070576, 1604613, 1365295, 3396156 ####[place] [address] [place] [address] Rapid COVID Antigen ([facility])on 11-04-2023 Rapid COV Int NEG Ctl Pass Normal Fis [facility] Comment on above: Performed By: #### 2 [id number] ####[address] [address] Rapid COV Int POS Ctl Pass Normal Fis [facility] Comment on above: Performed By: #### 2 [id number] ####[address] [address] SARS-CoV+SARS-CoV-2 (COVID-19) Ag IA.rapid Ql (Resp) Detected Abnormal Not Detected [facility] Comment on above: Result Comment: The [employer]? System for Rapid Detection of SARS-CoV-2 is [...] For in vitro diagnostic use. In the [facility], only for use under an Emergency Use [...] or revoked sooner. Performed By: #### 2 [id number] ####[facility] [place] [address] Reportability Response - Pub [facility] Healthon 11-04-2023 Reportability Response - Public Health {[id number]- [id number]}X ML Normal [facility] Troponin 0 Hr.on 11-04-2023 Troponin 9.30 pg/mL Low 15.90-38.4 0 [facility] Comment on above: Result Comment: The 95% CI (Confidence Interval) PPV (Positive Predictive Value) for myocardial infarction in females is 38 pg/mL, in males 51 pg/mL. The results should be used in conjunction with clinical conditions of myocardial infarction. (Access High Sensitivity Troponin I Instructions For Use, Missael Suraj, June 2018) Performed By: #### 1 4838122, 1718494, 02366402, 04608160, 4728433, 6417112, 6042272, 4614075 ####[facility] [address] [place] [address] UA With Cult Reflexon 2022 Bacteria LM Ql (Urine sed) 1+ /HPF Abnormal Trace [facility] Comment on above: Performed By: #### 1 1915988 ####[facility] [address] [place] [address] Bilirubin Ql (U) Negative Normal Negative [facility] Comment on above: Performed By: #### 1 4783369 ####[facility] [address] [place] [place] [address] Clarity (U) CLOUDY Abnormal Clear [facility] Comment on above: Performed By: #### 1 8172372 ####[facility] [address] [facility] [place] [address] Color (U) YELLOW Normal Yellow [facility] Comment on above: Performed By: #### 1 1018776 ####[facility] [address] [place] [address] Crystals LM Ql (Urine sed) Present Normal [facility] Comment on above: Performed By: #### 1 3709971 ####[facility] [address] [facility] [place] [address] Epithelial cells.squamous LM.HPF (Urine sed) [#/Area] 0-2 Normal 0-2 [facility] Comment on above: Performed By: #### 1 4071628 ####[facility] [address] [facility] [place] [address] Glucose Test strip (U) [Mass/Vol] Negative Normal Negative [facility] Comment on above: Performed By: #### 1 7095768 ####[facility] [address] [place] [address] Hemoglobin Ql (U) 3+ Abnormal Negative [facility] Comment on above: Performed By: #### 1 6610727 ####[facility] [address] [place] [address] Ketones (U) [Mass/Vol] Negative Normal Negative [facility] [place] Comment on above: Performed By: #### 1 2340720 ####[facility] [address] [facility] [place] [address] Forreston.plasma/Forreston.RB C (Bld) [Mass ratio] 21-30 Abnormal 0-3 [facility] Comment on above: Performed By: #### 1 0618451 ####[address] [address] Nitrite Ql (U) Negative Normal Negative [facility] Comment on above: Performed By: #### 1 5873438 ####[place] [address] pH (U) 7.0 [pH] Invalid Interpretation Code 5.0-9.0 [facility] Comment on above: Performed By: #### 1 7837985 ####[place] [address] Protein (U) [Mass/Vol] 1+ Abnormal Negative Fi [facility] [place] Comment on above: Performed By: #### 1 3814439 ####[place] [address] Specific gravity (U) [Rel density] 1.020 Invalid Interpretation Code 1.005-1.03 0 [facility] Comment on above: Performed By: #### 1 6462693 ####[place] [address] Type of Urine collection method Clean Catch Normal [facility] Comment on above: Performed By: #### 1 4159946 ####[address] [address] Urobilinogen Qn (U) 0.2 {Rosina'U}/dL Normal 0.0-1.0 [facility] Comment on above: Performed By: #### 1 5859015 ####[address] [address] WBC Auto Ql (U) Negative Normal Negative [facility] Comment on above: Performed By: #### 1 8053778 ####[address] [address] WBC casts LM.LPF (Urine sed) [#/Area] 0-3 Normal [facility] Comment on above: Performed By: #### 1 6630788 ####[facility] [address] [place] [address] WBC LM.HPF (Urine sed) [#/Area] 0-5 Normal 0-5 [facility] Comment on above: Performed By: #### 1 5593354 ####[facility] [address] [place] [address] XR Chest Single Viewon 11-04 XR Chest [...] mGy = na DAP = na Normal [facility] eGFRon 11-04-2023 GFR/1.73 sq M.predicted among non-blacks MDRD (S/P/Bld) [Vol rate/Area] mL/min/{1.73_m2} Normal >=59 [facility] Comment on above: Order Comment: Order added by Discern Expert. Performed By: #### 1 3809160, 4927946, 23805534, 00045250, 5039564, 5235397, 7065360, 2450609 ####[facility] [address] [place] [address] Auto Diffon 10-23-2023 Basophils/100 WBC (Bld) 0.2 % Normal 0.0-2.0 F [facility] Comment on above: Order Comment: Order Added by Discern Expert. Performed By: #### 2 678212, 2141323, 8839044, 0494602, 96225710, 4095736 #### [facility] [address] [place] [address] Basophils/Leukocytes Auto (Bld) [Pure # fraction] 0.0 E9/L Normal 0.0-0.2 [facility] Comment on above: Order Comment: Order Added by Discern Expert. Performed By: #### 2 211311, 3732211, 0419124, 2583808, 17875984, 3004851 #### [facility] [address] [place] [address] Eosinophils/100 WBC (Bld) 0.0 % Normal 0.0-8.0 [facility] Comment on above: Order Comment: Order Added by Discern Expert. Performed By: #### 2 039472, 1197777, 9845985, 7017116, 00499242, 8898986 #### [facility] [address] [place] [address] Eosinophils/Leukocytes Auto (Bld) [Pure # fraction] 0.0 E9/L Normal 0.0-0.5 [facility] Comment on above: Order Comment: Order Added by Discern Expert. Performed By: #### 2 094731, 1473837, 9198088, 5545853, 56267264, 2886360 #### [facility] [address] [place] [address] Lymphocytes/100 WBC (Bld) 7.8 % Low 14.0-50.0 [facility] Comment on above: Order Comment: Order Added by Discern Expert. Performed By: #### 2 742581, 2309058, 9330093, 8892634, 50327510, 0972718 #### [facility] [address] [place] [address] Lymphocytes/Leukocytes Auto (Bld) [Pure # fraction] 0.8 E9/L Low 1.0-4.0 [facility] Comment on above: Order Comment: Order Added by Discern Expert. Performed By: #### 2 098401, 7404343, 1495087, 7875393, 25739684, 1813796 #### [facility] [address] [place] [address] Monocytes/100 WBC (Bld) 1.6 % Low 4.0-14.0 [facility] Comment on above: Order Comment: Order Added by Discern Expert. Performed By: #### 2 351193, 4753957, 3028746, 6379779, 21136346, 4026997 #### [facility] [address] [place] [address] Monocytes/Leukocytes Auto (Bld) [Pure # fraction] 0.2 E9/L Normal 0.2-1.0 [facility] Comment on above: Order Comment: Order Added by Discern Expert. Performed By: #### 2 399269, 2854178, 5615891, 5877096, 15073177, 7475674 #### [facility] [address] [place] [address] Neutrophils/100 WBC (Bld) 90.4 % High 36.0-75.0 [facility] Comment on above: Order Comment: Order Added by Discern Expert. Performed By: #### 2 699627, 4892237, 8720175, 2804542, 33754049, 8342978 #### [facility] [address] [place] [address] Neutrophils/Leukocytes Auto (Bld) [Pure # fraction] 8.9 E9/L High 2.0-7.5 [facility] Comment on above: Order Comment: Order Added by Discern Expert. Performed By: #### 2 694120, 4672112, 0356112, 8655158, 20308614, 2937551 #### [facility] [address] [place] [address] BMPon 10-23-2023 Creatinine [Mass/Vol] 0.8 mg/dL Normal 0.5-1.3 [facility] Comment on above: Performed By: #### 2 739121, 1425166, 9068041, 2382900, 95241192, 7413704 ####[facility] [address] [place] [address] Urea nitrogen [Mass/Vol] 12 mg/dL Normal 5-21 [facility] Comment on above: Performed By: #### 2 144129, 6731502, 7256202, 4701457, 82474011, 4974140 ####[facility] [address] [place] [address] Urea nitrogen/Creatinine [Mass ratio] 15 No Units Normal 10-20 [facility] Comment on above: Performed By: #### 2 459876, 9749380, 4558361, 0400422, 69574928, 9222307 ####[facility] [address] [place] [address] Anion gap [Moles/Vol] 11 mmol/L Normal 6-16 [facility] Comment on above: Performed By: #### 2 361796, 3601424, 9371862, 5037198, 33894169, 6357633 ####[facility] [address] [place] [address] Calcium [Mass/Vol] 9.5 mg/dL Normal 8.9-11.1 [facility] Comment on above: Performed By: #### 2 001390, 3848964, 5787898, 6218883, 65465965, 3320969 ####[facility] [address] [place] [address] Chloride [Moles/Vol] 110 mmol/L Normal 101-111 [facility] Comment on above: Performed By: #### 2 651672, 8834346, 1337011, 7165313, 79535345, 6629288 ####[facility] [address] [place] [address] CO2 [Moles/Vol] 22 mmol/L Normal 21-31 [facility] Comment on above: Performed By: #### 2 783159, 0552932, 1375103, 6983980, 79978402, 9793976 ####[facility] [address] [place] [address] Glucose [Mass/Vol] 149 mg/dL Normal 55-199 [facility] Comment on above: Result Comment: If t his glucose result represents a fasting glucose, interpretation should refer to the following reference range: 55-99 mg/dL Performed By: #### 2 670841, 4763558, 5848453, 9146495, 32867365, 0883021 ####[facility] [address] [place] [address] Potassium [Moles/Vol] 3.4 mmol/L Low 3.5-5.3 [facility] Comment on above: Performed By: #### 2 923489, 9531894, 6500029, 9251294, 81045465, 0660575 ####[facility] [address] [place] [address] Sodium [Moles/Vol] 140 mmol/L Normal 135-145 [facility] Comment on above: Performed By: #### 2 169917, 2862323, 3527850, 6876877, 94930347, 2961902 ####[facility] [address] [place] [address] CBC w/ Auto Diffon 3 Erythrocyte distribution width (RBC) [Ratio] 13.7 % Normal 10.9-14.2 [facility] Comment on above: Performed By: #### 2 933232, 9565673, 7890782, 1442428, 31015740, 1115646 #### [facility] [address] [place] [address] Hematocrit (Bld) [Volume fraction] 38.3 % Normal 37.7-49.0 [facility] Comment on above: Performed By: #### 2 998559, 2048204, 8393133, 2297069, 25711311, 7104426 #### [facility] [address] [place] [address] Hemoglobin (Bld) [Mass/Vol] 12.9 g/dL Low 13.5-17.5 [facility] Comment on above: Performed By: #### 2 965898, 8303138, 7022526, 2667608, 18537409, 9496831 #### [facility] [address] [place] [address] MCH (RBC) [Entitic mass] 30.4 pg Normal 27.0-34.0 [facility] Comment on above: Performed By: #### 2 386311, 5164583, 3038717, 6843838, 73709684, 5844270 #### [facility] [address] [place], [place] [address] MCHC (RBC) [Mass/Vol] 33.7 g/dL Normal 31.4-36.0 [facility] Comment on above: Performed By: #### 2 287003, 4921329, 8539712, 0362771, 04907741, 4395050 #### [facility] [address] [place] [address] MCV (RBC) [Entitic vol] 90.2 fL Normal 80.0-100.0 F [facility] Comment on above: Performed By: #### 2 674240, 5620920, 3425422, 8329806, 24870424, 2058586 #### [facility] [address] [place] [address] Platelet mean volume (Bld) [Entitic vol] 6.1 fL Low 6.4-10.8 [facility] Comment on above: Performed By: #### 2 881074, 2047364, 3027204, 6040762, 16731885, 1141687 #### [facility] [address] [place] [address] Platelets (Bld) [#/Vol] 483.0 E9/L Normal 150. 0-500. 0 [facility] Comment on above: Performed By: #### 2 715807, 5358723, 6701673, 3344931, 49482842, 2400872 #### [facility] [address] [place] [address] RBC (Bld) [#/Vol] 4.2 E12/L Low 4.3-5.9 [facility] Comment on above: Performed By: #### 2 863450, 4400032, 8943626, 7847954, 09748031, 0643823 #### [facility] [address] [place] [address] WBC corrected for nucl RBC Auto (Bld) [#/Vol] 9.8 E9/L Normal 4.0-11.0 [facility] Comment on above: Performed By: #### 2 882853, 6496672, 5818528, 3676978, 33782780, 8816472 #### [facility] [address] [place] [address] CT Abdomen/Pelvis w/o Contra ston 10-23-2023 CT [...] Oral contrast amount in ml's: 0 Normal [facility] Consent for Treatmenton Consent for Treatment [id number] Normal [facility] Discharge Instructionson Discharge Instructions [id number] Normal [facility] ED Clinical Summaryon 2022 ED Clinical Summary (Inserted Image. Perla ble to display) [place] [id number] ED Clinical Summary Person Information Name: JAM TOSCANO [facility] Age: 58 Years : 1965 Sex: Male Language: Nigerien PCP: Jose L Lackey MD Marital Status: [...] 10/23/2023 15:54:39 10/23/2023 15:54:39 10/23/2023 15:54:39 ADDRESS: [address] [place] [address] [facility] [id number] PHYS DOC NOTES: MEDICAL INFORMATION: Prescriptions Given: New Medications [id number], [address] [place], [place] [id number], [phone] acetaminophen-oxycodone (acetaminophen-oxycodone 325 mg-5 mg Tab) 1 [...] That Have Changed [facility], [address] [place], [place] [id number], [phone] START: ondansetron (Zofran ODT 4 mg Tab-Dis) [...] up: With: Address: When: Otilia Layne [facility], [address] [phone] Business (1) In 3 days 12 (more content not included)... Normal [facility] ED Note-Physicianon 10-23-20 ED Note-Physician Basic Information [...] and Complexity of Problems Differential Diagnosis: [] [facility] Data External documents reviewed: [] My [...] # 20 tab(s), Refills(s) 0, Pharmacy: [facility], 168, cm, 10/23/23 13:41:00 EST, Height/Length Dosing, 75.1, kg, 10/23/23 13:41:00 EST, Weight Dosing ondansetron, 4 mg = 2 mL, Injection, IV Push, Once, Stop date 10/23/23 14:30:00 EST, STAT, Start date 10/23/23 14:30:00 EST, 10/23/23 14:30:00 EST ondansetron, 4 mg = 1 tab(s), Oral, q8hr, PRN Nausea/Vomiting, # 30 tab(s), Refills(s) 0, Pharmacy: [facility]6177, 168, cm, 10/23/23 13:41:00 EST, Height/Length Dosing, 75.1, kg, 10/23/23 13:41:00 EST, Weight Dosing Sodium Chloride 0.9% intravenous solution, 1,000 mL, Soln-IV, IV, Once, Stop date 10/23/23 14:29:00 EST, STAT, Start date 10/23/23 14:29:00 EST, Infuse over 61, minute(s) tamsulosin, 0.4 mg = 1 cap(s), Oral, Daily, # 10 cap(s), Refills(s) 0, Pharmacy: [facility]/pharmacy #6177, 168, cm, 10/23/23 13:41:00 EST, Height/Length Dosing, 75.1, k (more content not included)... Normal [facility] Comment on above: Result Comment: Elec tronically [...] these instructions at home: Medicines ? Take kzdy-bvc-tbvewxj and prescription medicines only as told by [...] recommendations from (more content not included)... Normal [facility] ED Patient Summaryon 023 ED Patient Summary (Inserted Image. Perla ble to display) [place] [id number] Patient Discharge Instructions Person Information Name: JAM TOSCANO Age: 58 Years Arrival Date: 10/23/2023 13:30:39 Discharge Diagnosis: Kidney stone on left side Primary Care Physician: Jose L Lackey MD Provider Information Primary Provider: Zoila Castillo M.D. Advanced Commission Broker:None The exam and treatment you received in the Emergency Department were for an urgent problem and are not intended as complete care. It is important that you follow up with a doctor, nurse practitioner, or physician?s assurance assistant for ongoing care. If your symptoms [...] Follow-up Instructions: With: Address: When: Otilia Layne [address] [place], [place] [phone] Business (1) In 3 days 10/26/2023 Comments: Follow-up with urology for further evaluation of your left-sided kidney stones. With: Address: When: Jose L Ziyad [address] [place] [address] [place] [phone] Business (1) In 3 days 10/26/2023 Comments: [...] opioids can be used to help relieve evkccsaf-io-ddadsn pain and are often prescribed following a [...] your pharma (more content not included)... Normal [facility] Hep Func Panelon 10-23-2023 Bilirubin.indirect [Mass or moles/Vol] UTC Abnormal 0.1-0.9 [facility] Comment on above: Result Comment: Resu lt verified by Discern Rule. Performed result UT (Unable to Calculate) was sent as an Alpha code due the inability to calculate a valid numeric value. Performed By: #### 2 038747, 5917951, 7863188, 3355903, 25013499, 1209173 ####[facility] [address] [place] [address] Albumin [Mass/Vol] 3.5 g/dL Normal 3.3-5.0 [facility] Comment on above: Performed By: #### 2 716482, 5225092, 9466687, 2927319, 42616343, 3302057 ####[facility] [address] [place] [address] Albumin/Globulin (S) [Mass conc ratio] 1.0 Low 1.1-2.2 [facility] Comment on above: Performed By: #### 2 359947, 3295038, 4502591, 6840315, 03257555, 2832310 ####[facility] [address] [place] [address] ALP [Catalytic activity/Vol] 194 Int._Unit/L High 21-98 [facility] Comment on above: Performed By: #### 2 088738, 8833094, 3396294, 2985746, 54399392, 4714757 ####[facility] [address] [place] [address] ALT No additional P-5'-P [Catalytic activity/Vol] 32 Int._Unit/L Normal 6-46 [facility] Comment on above: Performed By: #### 2 891609, 8081334, 1601870, 7863727, 96574364, 8553530 ####[facility] [address] [place] [address] AST [Catalytic activity/Vol] 34 Int._Unit/L Normal 5-43 [facility] Comment on above: Performed By: #### 2 361624, 7392451, 2740626, 0639194, 64918164, 6754207 ####[facility] [address] [place] [address] Bilirubin [Mass/Vol] 0.4 mg/dL Normal 0.0-1.1 [facility] Comment on above: Performed By: #### 2 948935, 1463670, 2377976, 3552464, 53415662, 3963945 ####[facility] [address] [place] [address] Globulin (S) [Mass/Vol] 3.7 g/dL Normal 1.4-4.0 F [facility] Comment on above: Performed By: #### 2 626655, 6949879, 6013427, 8310836, 65689540, 9544223 ####[facility] [address] [place] [address] Protein [Mass/Vol] 7.2 g/dL Normal 6.0-7.8 [facility] Comment on above: Performed By: #### 2 904933, 4869697, 9583569, 7980500, 69448270, 2681247 ####[facility] [address] [place] [address] Bilirubin.direct [Mass/Vol] mg/dL Normal 0.1-0.4 [facility] Comment on above: Performed By: #### 2 741868, 8633235, 8364275, 1568182, 01378186, 8783668 ####[facility] [address] [place] [address] Lipase Levelon 10-23-2023 Lipase [Catalytic activity/Vol] 31 U/L Normal 13-58 [facility] Comment on above: Performed By: #### 2 480895, 6497525, 4343880, 2776114, 83202037, 1131996 #### [facility] [address] [place] [address] Physician Orderon 10-23-2023 Physician Order [id number] Normal [facility] UA With Cult Reflexon 2022 Bacteria LM Ql (Urine sed) 1+ /HPF Abnormal Trace [facility] Comment on above: Performed By: #### 1 4052428 #### [facility] [address] [place] [address] Bilirubin Ql (U) Negative Normal Negative [facility] Comment on above: Performed By: #### 1 2367997 #### [facility] [address] [place] [address] Clarity (U) CLEAR Normal Clear [facility] Comment on above: Performed By: #### 1 3625398 #### [facility] [address] [place] [address] Color (U) YELLOW Normal Yellow [facility] Comment on above: Performed By: #### 1 [id number] #### [facility] [address] [place] [address] Epithelial cells.squamous LM.HPF (Urine sed) [#/Area] 0-2 Normal 0-2 [facility] Comment on above: Performed By: #### 1 [id number] #### [facility] [address] [place] [address] Glucose Test strip (U) [Mass/Vol] Negative Normal Negative [facility] Comment on above: Performed By: #### 1 [id number] #### [facility] [address] [place] [address] Hemoglobin Ql (U) 3+ Abnormal Negative [facility] Comment on above: Performed By: #### 1 [id number] #### [facility] [address] [place] [address] Ketones (U) [Mass/Vol] Negative Normal Negative [facility] [place] Comment on above: Performed By: #### 1 [id number] #### [facility] [address] [place] [address] Forreston.plasma/Forreston.RB C (Bld) [Mass ratio] 4-20 Normal 0-3 [facility] Comment on above: Performed By: #### 1 [id number] #### [facility] [address] [place] [address] Mucus Ql (Urine sed) TRACE Normal [facility] Comment on above: Performed By: #### 1 [id number] #### [facility] [address] [place] [address] Nitrite Ql (U) Negative Normal Negative [facility] Comment on above: Performed By: #### 1 [id number] #### [facility] [address] [place] [address] pH (U) 6.0 [pH] Invalid Interpretation Code 5.0-9.0 [facility] Comment on above: Performed By: #### 1 [id number] #### [facility] [address] [place] [address] Protein (U) [Mass/Vol] TRACE Abnormal Negative [facility] Comment on above: Performed By: #### 1 [id number] #### [facility] [address] [place] [address] Specific gravity (U) [Rel density] 1.010 Invalid Interpretation Code 1.005-1.03 0 [facility] Comment on above: Performed By: #### 1 [id number] #### [facility] [address] [place] [address] Type of Urine collection method Clean Catch Normal [facility] Comment on above: Performed By: #### 1 [id number] #### [facility] [address] [place] [address] Urobilinogen Qn (U) 0.2 {Rosina'U}/dL Normal 0.0-1.0 [facility] Comment on above: Performed By: #### 1 [id number] #### [facility] [address] [place] [address] WBC Auto Ql (U) TRACE Abnormal Negative [facility] Comment on above: Performed By: #### 1 [id number] #### [facility] [address] [place] [address] WBC LM.HPF (Urine sed) [#/Area] 0-5 Normal 0-5 [facility] Comment on above: Performed By: #### 1 [id number] #### [facility] [address] [place] [address] eGFRon 10-23-2023 GFR/1.73 sq M.predicted among non-blacks MDRD (S/P/Bld) [Vol rate/Area] 102 mL/min/1.73 m2 Normal >=59 [facility] Comment on above: Order Comment: Order added by Discern Expert. Result Comment: Shaping Machine Tender clark kidney disease could be indicated at eGFR's of less than 60 mL/min/1.73m2. Kidney failure is indicated at less than 15 mL/min/1.73m2. Performed By: #### 2 [id number], [id number], [id number], [id number], [id number] ####[facility] [address] [place] [address] Physician Orderon 07-02-2023 Physician Order [id number] Normal [facility] LIPID PROFILEon 02-11-2023 CHOL-HDL RATIO NORM SEE BELOW Normal [facility] Comment on above: Result Comment: 3.3 - 4.4 LOW RISK 4.4 - 7.1 AVERAGE RISK 7.1 - 11.0 MODERATE RISK >11.0 HIGH RISK Performed By: #### L CASEY LIVER #### [facility] [address] [place] [address] Dr. Rj Miller Cholesterol [Mass/Vol] 99 mg/dL Normal <=200 [facility] Comment on above: Performed By: #### L CASEY LIVER #### [facility] [address] [address] [address] Rj Miller Cholesterol in HDL [Mass/Vol] 44 mg/dL Normal 40-60 [facility] Comment on above: Performed By: #### L CASEY, LIVER #### [facility] [address] [place] [address] Dr. Rj Miller Cholesterol in LDL [Mass/Vol] 45.4 mg/dL Normal [facility] Comment on above: Performed By: #### L IPID, LIVER #### [facility] [address] [place] [address] Dr. Rj Miller Cholesterol.total/Cholest carlos in HDL [Mass ratio] 2.3 {ratio} Normal [facility] Comment on above: Performed By: #### L IPID, LIVER #### [facility] [address] [place] [address] Dr. Rj Miller HDL NORMAL > or = 60 mg/dl - LO W CARDIOVASCULAR RISK <40 mg/dl - HIGH CARDIOVASCULAR RISK Normal [facility] Comment on above: Performed By: #### L IPID, LIVER #### [facility] [address] [place] [address] Dr. Rj Miller LDL CALC NORMAL SEE BELOW Normal [facility] Comment on above: Result Comment: <100 mg/dl OPTIMAL 100 - 129 mg/dl NEAR OR ABOVE OPTIMAL 130 - 159 mg/dl BORDERLINE HIGH 160 - 189 mg/dl HIGH >190 mg/dl VERY HIGH Performed By: #### L IPID, LIVER #### [facility] [address] [place] [address] Dr. Rj Miller Triglyceride [Mass/Vol] 48 mg/dL Normal <=150 T [facility] Comment on above: Performed By: #### L IPID, LIVER #### [facility] [address] [place] [address] Dr. jR Miller VLDL CALC 9.6 mg/dL Normal [facility] Comment on above: Performed By: #### L IPID, LIVER #### [facility] [address] [place] [address] Dr. Rj Miller LIVER PROFILEon 02-11-2023 Albumin [Mass/Vol] 3.7 g/dL Normal 3.4-5.0 [facility] Comment on above: Performed By: #### L IPID, LIVER #### [facility] [address] [place] [address] Dr. Rj Miller Albumin/Globulin [Mass ratio] 1.0 {ratio} Normal [facility] Comment on above: Performed By: #### L IPID, LIVER #### [facility] [address] [place] [address] Dr. Rj Miller ALP [Catalytic activity/Vol] 210 U/L Critically high 46-116 [facility] Comment on above: Performed By: #### L IPID, LIVER #### [facility] [address] [place] [address] Dr. Rj Miller ALT [Catalytic activity/Vol] 50 U/L Normal 16-63 [facility] Comment on above: Performed By: #### L IPID, LIVER #### [facility] [address] [place] [address] Dr. Rj Miller AST [Catalytic activity/Vol] 42 U/L Critically high 15-37 [facility] Comment on above: Performed By: #### L IPID, LIVER #### [facility] [address] [place] [address] Dr. Rj Miller BILI, CONJUGATED 0.1 mg/dL Normal 0.0-0.2 [facility] Comment on above: Performed By: #### L IPID, LIVER #### [facility] [address] [place] [address] Dr. Rj Miller Bilirubin [Mass/Vol] 0.3 mg/dL Normal 0.2-1.0 [facility] Comment on above: Performed By: #### L IPID, LIVER #### [facility] [address] [place] [address] Dr. Rj Miller Globulin (S) [Mass/Vol] 3.7 g/dL Normal T [facility] Comment on above: Performed By: #### L IPID, LIVER #### [facility] [address] [place] [address] Dr. Rj Miller Protein [Mass/Vol] 7.4 g/dL Normal 6.4-8.2 [facility] Comment on above: Performed By: #### L IPID, LIVER #### [facility] [address] [place] [address] Dr. Rj Miller 25-hydroxyvitamin D3 [Mass/V ol]on 01-14-2023 Vitamin D 25 [place] 40.2 ng/mL 30 - 100 ng/mL [facility] MRI LSPINE WO CONon 11-24-19 23 [...] complex. 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 Rj Miller Basophils/100 WBC (Bld) 0.5 % Normal 0.2-2.0 [facility] Comment on above: Performed By: #### C BC #### [facility] [address] [address] [address] Rj Miller EO # 0.2 103/ul Normal 0.0-0.7 [facility] Comment on above: Performed By: #### C BC #### [facility] [address] [address] [address] Rj Miller Eosinophils/100 WBC (Bld) 1.8 % Normal 0.9-7.0 [facility] Comment on above: Performed By: #### C BC #### [facility] [address] [address] [address] Rj Miller Erythrocyte distribution width (RBC) [Ratio] 13.6 % Normal 11.0-15.0 [facility] Comment on above: Performed By: #### C BC #### [facility] [address] [address] [address] Rj Miller Hematocrit (Bld) [Volume fraction] 41.3 % Critically low 42.0-54.0 [facility] Comment on above: Performed By: #### C BC #### [facility] [address] [place] [address] Dr. Rj Miller Hemoglobin (Bld) [Mass/Vol] 14.1 g/dL Normal 14.0-18.0 [facility] Comment on above: Performed By: #### C BC #### [facility] [address] [place] [address] Dr. Rj Miller IG # 0.02 10e3/ul Normal 0.00-0.03 [facility] Comment on above: Performed By: #### C BC #### [facility] [address] [place] [address] Dr. Rj Miller IG % 0.2 % Normal 0.0-0.5 [facility] Comment on above: Performed By: #### C BC #### [facility] [address] [place] [address] Dr. Rj Miller LYMPH # 2.4 103/ul Normal 1.2-3.8 [facility] Comment on above: Performed By: #### C BC #### [facility] [address] [place] [address] Dr. Rj Miller Lymphocytes/100 WBC (Bld) 29.5 % Normal 20.5-60.0 [facility] Comment on above: Performed By: #### C BC #### [facility] [address] [place] [address] Dr. Rj Miller MANUAL DIFF REQ NO Normal [facility] Comment on above: Performed By: #### C BC #### [facility] [address] [place] [address] Dr. Rj Miller MCH (RBC) [Entitic mass] 31.1 pg Normal 25.9-34.0 [facility] Comment on above: Performed By: #### C BC #### [facility] [address] [place] [address] Dr. Rj Miller MCHC (RBC) [Mass/Vol] 34.1 g/dL Normal 29.9-35.2 [facility] Comment on above: Performed By: #### C BC #### [facility] [address] [place] [address] Dr. Rj Miller MCV (RBC) [Entitic vol] 91.0 fL Normal 80.0-94.0 [facility] Comment on above: Performed By: #### C BC #### [facility] [address] [place] [address] Dr. Rj Miller MONO # 0.7 103/ul Normal 0.3-0.8 [facility] Comment on above: Performed By: #### C BC #### [facility] [address] [place] [address] Dr. Rj Miller Monocytes/100 WBC (Bld) 8.3 % Normal 1.7-12.0 [facility] Comment on above: Performed By: #### C BC #### [facility] [address] [place] [address] Dr. Rj Miller NEUT # 4.9 103/ul Normal 1.4-6.5 [facility] Comment on above: Performed By: #### C BC #### [facility] [address] [place] [address] Dr. Rj Miller Neutrophils/100 WBC (Bld) 59.7 % Normal 43.0-75.0 [facility] Comment on above: Performed By: #### C BC #### [facility] [address] [place] [address] Dr. Rj Miller Platelet mean volume (Bld) [Entitic vol] 8.8 fL Critically low 9.5-13.5 [facility] Comment on above: Performed By: #### C BC #### [facility] [address] [place] [address] Dr. Rj Miller PLT 288 103/ul Normal 150-450 [facility] Comment on above: Performed By: #### C BC #### [facility] [address] [place] [address] Dr. Rj Miller RBC 4.54 106/ul Critically low 4.70-6.10 [facility] Comment on above: Performed By: #### C BC #### [facility] [address] [place] [address] Dr. Rj Miller WBC 8.2 103/ul Normal 4.0-11.0 [facility] Comment on above: Performed By: #### C BC #### [facility] [address] [place] [address] Dr. Rj Miller Covid-19 PCR (CVDTB)on SARS-CoV-2 (COVID-19) RNA BERNARDO+probe Ql (Unsp spec) Not detected Normal NOT DETECTED [facility] Comment on above: Result Comment: When [...] for this test is supported by the Press Manager of Health and Human Service's declaration that [...] used). Performed By: #### C VDTBH #### [facility] [address] [place] [address] Dr. Rj Miller LIPASEon 09-24-2022 Lipase [Catalytic activity/Vol] 17.0 U/L Critically low 73.0-393.0 [facility] Comment on above: Performed By: #### C MP, LIPA, HSTROPN #### [facility] [address] [place] [address] Dr. Rj Miller PROF 14(COMP METB)on 022 Albumin [Mass/Vol] 3.8 g/dL Normal 3.4-5.0 [facility] Comment on above: Performed By: #### C MP, LIPA, HSTROPN #### [facility] [address] [place] [address] Dr. Rj Miller Albumin/Globulin [Mass ratio] 1.0 {ratio} Normal [facility] Comment on above: Performed By: #### C MP, LIPA, HSTROPN #### [facility] [address] [place] [address] Dr. Rj Miller ALP [Catalytic activity/Vol] 180 U/L Critically high 46-116 [facility] Comment on above: Performed By: #### C MP, LIPA, HSTROPN #### [facility] [address] [place] [address] Dr. Rj Miller ALT [Catalytic activity/Vol] 38 U/L Normal 16-63 [facility] Comment on above: Performed By: #### C MP, LIPA, HSTROPN #### [facility] [address] [place] [address] Dr. Rj Miller Anion gap [Moles/Vol] 8.7 mmol/L Normal [facility] Comment on above: Performed By: #### C MP, LIPA, HSTROPN #### [facility] [address] [place] [address] Dr. Rj Miller AST [Catalytic activity/Vol] 28 U/L Normal 15-37 [facility] Comment on above: Performed By: #### C MP, LIPA, HSTROPN #### [facility] [address] [place] [address] Dr. Rj Miller Bilirubin [Mass/Vol] 0.4 mg/dL Normal 0.2-1.0 [facility] Comment on above: Performed By: #### C MP, LIPA, HSTROPN #### [facility] [address] [place] [address] Dr. Rj Miller Calcium [Mass/Vol] 8.9 mg/dL Normal 8.5-10.1 [facility] Comment on above: Performed By: #### C MP, LIPA, HSTROPN #### [facility] [address] [place] [address] Dr. Rj Miller Chloride [Moles/Vol] 103 mmol/L Normal 98-107 [facility] Comment on above: Performed By: #### C MP, LIPA, HSTROPN #### [facility] [address] [place] [address] Dr. Rj Miller CO2 [Moles/Vol] 26.0 mmol/L Normal 21.0-32.0 [facility] Comment on above: Performed By: #### C MP, LIPA, HSTROPN #### [facility] [address] [place] [address] Dr. Rj Miller Creatinine [Mass/Vol] 0.88 mg/dL Normal 0.70-1.30 [facility] Comment on above: Performed By: #### C MP, LIPA, HSTROPN #### [facility] [address] [place] [address] Dr. Rj Miller EGFR-AF GEORGIAN >60 Normal >=60 [facility] Comment on above: Performed By: #### C MP, LIPA, HSTROPN #### [facility] [address] [place] [address] Dr. Rj Miller EGFR-NON AF GEORGIAN >60 Normal >=60 [facility] Comment on above: Performed By: #### C MP, LIPA, HSTROPN #### [facility] [address] [place] [address] Dr. Rj Miller Globulin (S) [Mass/Vol] 3.8 g/dL Normal [facility] Comment on above: Performed By: #### C MP, LIPA, HSTROPN #### [facility] [address] [place] [address] Dr. Rj Miller Glucose [Mass/Vol] 116 mg/dL Critically high 74-106 [facility] Comment on above: Performed By: #### C MP, LIPA, HSTROPN #### [facility] [address] [place] [address] Dr. Rj Miller Potassium [Moles/Vol] 3.7 mmol/L Normal 3.5-5.1 [facility] Comment on above: Performed By: #### C MP, LIPA, HSTROPN #### [facility] [address] [place] [address] Dr. Rj Miller Protein [Mass/Vol] 7.6 g/dL Normal 6.4-8.2 [facility] Comment on above: Performed By: #### C MP, LIPA, HSTROPN #### [facility] [address] [address] [address] Rj Miller Sodium [Moles/Vol] 134 mmol/L Critically low 136-145 Th [facility] Comment on above: Performed By: #### C MP, LIPA, HSTROPN #### [facility] [address] [address] [address] Rj Miller Urea nitrogen [Mass/Vol] 13.0 mg/dL Normal 7.0-18.0 [facility] Comment on above: Performed By: #### C MP, LIPA, HSTROPN #### [facility] [address] [place] [address] Dr. Rj Miller Urea nitrogen/Creatinine [Mass ratio] 14.8 mg/mg Normal [facility] Comment on above: Performed By: #### C MP, LIPA, HSTROPN #### [facility] [address] [address] [address] Rj Miller TROPONIN, HIGH SENSITIVITYon 09-24-2022 HSTROP 10.1 pg/mL Normal 4.0-76.1 [facility] Comment on above: Result Comment: CUT- OFF POINTS HAVE BEEN ESTABLISHED BASED ON THE FOURTH UNIVERSAL DEFINITIONS OF MYOCARDIAL INFARCTION. THE UPPER REFERENCE LIMIT (URL) OF TROPONIN, DEFINED THE 99TH PERCENTILE OF cTnI DISTRIBUTION IN A REFERENCE POPULATION, HAS BEEN CONFIRMED THE DECISION THRESHOLD FOR IA DIAGNOSIS. Performed By: #### C MP, LIPA, HSTROPN #### [facility] [address] [address] [address] Rj Miller XR CSPINE 2_3 VIEWSon [...] JENNY TAPIA Date: 2022-09-24 07:20 Normal [facility] Basic Metabolic Panelon - Calcium [Mass/Vol] 8.7 mg/dL Normal 8.2-10.2 [facility] Comment on above: Performed By: #### B MP #### [address] Chloride [Moles/Vol] 107 mmol/L Normal 95-114 [facility] Comment on above: Performed By: #### B MP #### [address] CO2 [Moles/Vol] 23.3 mmol/L Normal 22.0-30.0 [facility] Comment on above: Performed By: #### B MP #### [address] Creatinine [Mass/Vol] 0.80 mg/dL Normal 0.64-1.27 [facility] Comment on above: Performed By: #### B MP #### [address] Creatinine Clr Calc Pharmacy 101.34 [facility] Comment on above: Result Comment: PERF ORMED BY: [place] [address] PATHOLOGIST SMELTING ENGINEER MARGO MINOR M.D. Performed By: #### B MP #### [address] Estimated GFR ( David > 60 Normal [facility] Comment on above: Result Comment: GFR estimated reference range: According to KDOQI guidelines, <60 ml/min/1.73m2 is sufficient to diagnose a patient with chronic kidney disease. Performed By: #### B MP #### [address] Estimated GFR (Non- Am > 60 Normal [facility] Comment on above: Performed By: #### B MP #### [facility] [address] Glucose [Mass/Vol] 101 mg/dL High 70-100 [facility] Comment on above: Result Comment: [place] Glucose Reference Range is dependent on time and content of last meal. Glucose of more than 200 mg/dL in a nonstressed, ambulatory subject supports the diagnosis of Diabetes Mellitus. ADA recommended reference range Performed By: #### B MP #### [facility] [address] Potassium [Moles/Vol] 4.3 mmol/L Normal 3.5-5.1 [facility] Comment on above: Performed By: #### B MP #### [facility] [address] Sodium [Moles/Vol] 138 mmol/L Normal 136-146 [facility] Comment on above: Performed By: #### B MP #### [facility] [address] Urea nitrogen [Mass/Vol] 13 mg/dL Normal 9-23 [facility] Comment on above: Performed By: #### B MP #### [facility] [address] [place] [address] [place] Calculi, Urinaryon 1 Ca Oxalate Dihydrate 60 % Normal . [facility] Comment on above: Performed By: #### C ALCULI #### [facility] , [place] Oxalate Monohydrate 30 % Normal . [facility] Comment on above: Performed By: #### C ALCULI #### [facility] , Color (U) Moy Normal . [facility] Comment on above: Performed By: #### C ALCULI #### [facility] , Comment: Normal . [facility] Comment on above: Result Comment: Phys chao questions regarding Calculi Analysis contact [facility] at: [phone]. Performed By: #### C ALCULI #### [facility] , Composition Normal . [facility] Comment on above: Result Comment: Perc entage (Represents the % composition) Performed By: #### C ALCULI #### [facility] , Disclaimer: Normal . [facility] Comment on above: Result Comment: This test was developed and its performance characteristics determined by [facility]. It has not been cleared or approved by the Food and Drug Administration. Performed at: [facility] [address] [place] [address] Dr Castillo, [place], [place] [id number] Fashion Artist: Anthony Grey MD, Phone: [phone] Performed By: #### C ALCULI #### [facility] , Hydroxyapatite 10 % Normal . [facility] Comment on above: Performed By: #### C ALCULI #### [facility] , Note Normal . [facility] Comment on above: Result Comment: Calc josafat report will follow via computer, mail or skin fitter delivery. PERFORMED BY: [facility] [address] [place] [address] PATHOLOGIST SMELTING ENGINEER MARGO MINOR M.D. Performed By: #### C ALCULI #### [facility] , Photo Normal . [facility] Comment on above: Result Comment: Phot ograph will follow under a separate cover Performed By: #### C ALCULI #### [facility] , Size 6x6 Normal . [facility] Comment on above: Result Comment: Mult iple pieces received. Dimensions of the largest piece reported. Performed By: #### C ALCULI #### [facility] , Source Ureter Normal . [facility] Comment on above: Performed By: #### C ALCULI #### [facility] , Weight 110 Normal . [facility] Comment on above: Performed By: #### C ALCULI #### [facility] , ECG 12 lead ECGon 02-27-2021 ECG 12 lead ECG [facility] Main [place] [address] Electrocardiograph Report Signed Patient: Jam Toscano MR#: [id number] : 1965 Acct:[id number] Age/Sex: 55 / M ADM Date: 02/27/21 Loc: [place] Room: Type: [facility] Attending Dr: Rigo Gonzalez Jr, MD [...] DO 02/27/21 1110 Signed By: 02/27/[address] [facility] Mikey 02-27-2021 L ----- Specimen: [id number] Received: 02/27/21 Status: EMELI Flores Num: [id number] Spec Type: Surgical Subm Dr: Rigo Gonzalez Jr, MD, FACS Tissues: A Urinary Calculus (URETHRAL STONE) Procedures: Level 1 Gross Patient Age/Sex Location Account Attending Physician Jam Toscano 55/M [place] [id number] Rigo Gonzalez Jr, MD, FACS SPEC NUM: [id number] RECD: 02/27/21 STATUS: EMELI FLORES NUM: [id number] RADHA: 02/27/21- DR: Rigo Gonzalez Jr, MD, [...] Microscopic Description Gross examination only CPT Codes 82483 Specimen: [id number] Received: 02/27/21 Status: EMELI Flores Num: [id number] Spec Type: Surgical Subm Dr: Rigo Gonzalez Jr, MD, FACS Tissues: A Urinary Calculus (URETHRAL STONE) Procedures: Level 1 Gross Patient: Jam Toscano [id number] (Continued) Signed (signature on file) Silvestre Poon MD 02/28/[address] [facility] COVID-19 FRon 02-25-2021 SARS-CoV-2 (COVID-19) RNA BERNARDO+probe Ql (Unsp spec) Negative Normal Negative [facility] Comment on above: Order Comment: Healt hcare Worker?: N Result Comment: Ganesh earl: Negative Testing for SARS-CoV-2 by RT-PCR This test was developed and its performance characteristics determined by Kat[employer] (BD) and validated at the [facility]. This test has not been FDA cleared [...] is terminated or revoked sooner. PERFORMED BY: [place] [address] PATHOLOGIST SMELTING ENGINEER MARGO MINOR M.D. Performed By: #### C OVID-19 [facility] #### [address] COVID-19 Positive/Negativeon 02-25-2021 COVID-19 Positive/Negative Negative Negative [facility] Comment on above: Reference: NegativeT esting for SARS-CoV-2 by RT-PCRThis test was developed and its performance characteristics determined by Kat, [employer] (BD) and validated at the [facility]. This test has not been FDA cleared [...] Otheron 02-25-2021 Coronavirus 2018 PCR Interp N/A [facility] XR ANKLE GENERAL 3V AP/LAT/O BL LTon 02-20-2021 [facility] DXA-AXIAL SKELETONon [facility] Vital Signs Date Time Vital Sign Value Performing Clinician Lucy litparmjit 10-05-2024 07:15-0500 Body mass index (BMI) [Ratio] 27.66 kg/m2 Darrian Dubon MD Work Phone: [facility] 10-05-2024 07:15-0500 Body weight 77.7 kg Darrian Dubon MD Work Phone: [facility] 10-05-2024 07:15-0500 Diastolic blood pressure 76 mm[Hg] Darrian Dubon MD Work Phone: [facility] 10-05-2024 07:15-0500 Heart rate 66 /min Darrian Dubon MD Work Phone: [facility] 10-05-2024 07:15-0500 Systolic blood pressure 128 mm[Hg] Darrian Dubon MD Work Phone: [facility] 05-09-2024 10:05-0400 Diastolic blood pressure 78 mm[Hg] Geoffrey Pretty Work Phone: [facility] 05-09-2024 10:05-0400 Heart rate 78 /min Rheu Maria De Jesus Work Phone: [facility] 05-09-2024 10:05-0400 Systolic blood pressure 121 mm[Hg] Rheu Maria De Jesus Work Phone: [facility] 05-09-2024 09:08-0400 Body mass index (BMI) [Ratio] 27.16 kg/m2 Nidia Weston APRN.CNP Work Phone: [facility] 05-09-2024 09:08-0400 Body temperature 98.4 [degF] Nidia Weston APRN.CNP Work Phone: [facility] 05-09-2024 09:08-0400 Body weight 76.3 kg Nidia Weston APRN.METER/RELAY CRAFTSMAN Work Phone: [facility] 05-09-2024 09:08-0400 Diastolic blood pressure 79 mm[Hg] Nidia Weston APRN.METER/RELAY CRAFTSMAN Work Phone: [facility] 05-09-2024 09:08-0400 Heart rate 89 /min Nidia Weston APRN.METER/RELAY CRAFTSMAN Work Phone: [facility] 05-09-2024 09:08-0400 SaO2% (BldA) [Mass fraction] 97 % Nidia Weston APRN.METER/RELAY CRAFTSMAN Work Phone: [facility] 05-09-2024 09:08-0400 Systolic blood pressure 118 mm[Hg] Nidia Weston APRN.METER/RELAY CRAFTSMAN Work Phone: [facility] 03-14-2024 09:17-0400 Body mass index (BMI) [Ratio] 26.66 kg/m2 Nidia Weston APRN.METER/RELAY CRAFTSMAN Work Phone: [facility] 03-14-2024 09:17-0400 Body weight 74.9 kg Nidia Weston APRN.METER/RELAY CRAFTSMAN Work Phone: [facility] 03-14-2024 09:17-0400 Diastolic blood pressure 83 mm[Hg] Nidia Weston APRN.METER/RELAY CRAFTSMAN Work Phone: [facility] 03-14-2024 09:17-0400 Heart rate 97 /min Nidia Weston APRN.METER/RELAY CRAFTSMAN Work Phone: [facility] 03-14-2024 09:17-0400 SaO2% (BldA) [Mass fraction] 97 % Nidia Weston APRN.METER/RELAY CRAFTSMAN Work Phone: [facility] 03-14-2024 09:17-0400 Systolic blood pressure 121 mm[Hg] Nidia Weston APRN.METER/RELAY CRAFTSMAN Work Phone: [facility] Encounters Encounter Date Encounter Type Care Provider Facility Start: 05-22-2025 ambulatory Salmon Talal Sarmini Facility:[facility] Start: 12-14-2024 End: 12-14-2024 ambulatory Salmon Talal Fredomini Facility:[facility] Start: 11-21-2024 End: 11-23-2024 Telephone encounter Darrian Dubon MD Work Phone: Rheumatology Comment on above: Patient Update Start: 11-21-2024 End: 11-21-2024 ambulatory Marcin RAMÍREZ Facility:[facility] Start: 11-21-2024 End: 11-21-2024 ambulatory Marcin RAMÍREZ Facility: [facility] Start: 10-05-2024 End: 10-05-2024 ambulatory JOSE L LACKEY Facility:[facility] Start: 10-05-2024 End: 10-05-2024 Office outpatient [...] 06-13-2024 End: 06-13-2024 ambulatory Salmon Gonzálezal Fredomini Facility:[facility] Start: 06-03-2024 End: 06-03-2024 ambulatory Luis Antonio Talal Fredomini Facility:[facility] Start: 05-30-2024 End: 05-30-2024 ambulatory Salmon Talal Fredomini Facility:[facility] Start: 05-09-2024 End: 05-09-2024 ambulatory [place] Chair [...] 03-14-2024 Subsequent hospital visit by physician Xr [facility] Comment on above: Rheumatoid arthritis 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) [M05.79] Start: 03-14-2024 End: 03-14-2024 ambulatory NIDIA WESTON Facility:[facility] Start: 03-14-2024 End: 03-14-2024 Patient encounter procedure Nidia Weston APRN.METER/RELAY CRAFTSMAN Work Phone: Rheumatology Comment on above: 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); Vitamin D deficiency; Other osteoporosis without current pathological fracture; Encounter for medication review and counseling Start: 03-04-2024 End: 03-04-2024 ambulatory Salmon Talal Sarmini Facility:[facility] Start: 03-02-2024 End: 03-02-2024 ambulatory Salmon Talal Sarmini Facility:[facility] Start: 02-26-2024 End: 02-26-2024 ambulatory Salmon Talal Sarmini Facility:[facility] Start: 02-11-2024 Telephone encounter Nidia retana APRN.METER/RELAY CRAFTSMAN Work Phone: Rheumatology Start: 01-12-2024 End: 01-12-2024 ambulatory JOSE L M HOY Facility:[facility] Start: 01-12-2024 End: 01-12-2024 ambulatory JOSE L M HOY Facility:[facility] Start: 12-11-2023 End: 12-11-2023 ambulatory Salmon Talal Sarmini Facility:[facility] Start: 12-01-2023 End: 12-01-2023 ambulatory JOSE L M HOY Facility:[facility] Start: 12-01-2023 End: 12-01-2023 ambulatory JOSE L LACKEY Facility:[facility] Start: 11-27-2023 End: 11-27-2023 Emergency department patient visit Kavon Johnson Facility:[facility] Start: 11-04-2023 End: 11-04-2023 Emergency department patient visit Kavon Johnson Facility:[facility] Start: 10-23-2023 End: 10-23-2023 Emergency department patient visit Zoila Shirleybubba Facility:[facility] Start: 05-04-2023 Telephone encounter Nidia retana APRN.METER/RELAY CRAFTSMAN Work Phone: Rheumatology Comment on above: Patient Update Start: 05-04-2023 End: 05-04-2023 ambulatory Nidia Weston APRN.METER/RELAY CRAFTSMAN Work Phone: Rheumatology Comment on above: Rheumatoid [...] 05-04-2023 Telemedicine consultation with patient Nidia Weston APRN.METER/RELAY CRAFTSMAN Work Phone: [facility] Start: 03-02-2023 End: 03-02-2023 ambulatory Nidia Weston APRN.METER/RELAY CRAFTSMAN Work Phone: Rheumatology Comment on above: 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); Encounter to discuss test results; Counseling on health promotion and disease prevention; Ulcerative pancolitis (HCC); Other osteoporosis without current pathological fracture Start: 03-02-2023 End: 03-02-2023 Telemedicine consultation with patient Nidia Weston APRN.METER/RELAY CRAFTSMAN Work Phone: [facility] Start: 02-11-2023 End: 02-12-[address] JOSE L LACKEY . Facility: Start: 01-14-2023 Telephone encounter Nidia retana APRN.METER/RELAY CRAFTSMAN Work Phone: Rheumatology Comment on above: Outside Lab Results (Vit D ) Start: 12-29-2022 End: 12-29-2022 ambulatory Nidia Weston APRN.METER/RELAY CRAFTSMAN Work Phone: Rheumatology Comment on above: 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); Vitamin D deficiency; Encounter to discuss test results; Encounter for medication review and counseling; Counseling on health promotion and disease prevention; Other osteoporosis without current pathological fracture Start: 12-29-2022 End: 12-29-2022 Telemedicine consultation with patient Nidia Villalobos Enrico MOSERMETER/RELAY CRAFTSMAN Work Phone: [facility] Start: 11-24-2022 End: 11-25-[address] JOSE L LACKEY . Facility:[facility] Start: 11-06-2022 End: 11-07-[address] JOSE L LACKEY . Facility:[facility] Start: 09-24-2022 End: 09-24-[address] JOSE L LACKEY . Facility:[facility] Start: 09-23-2022 End: 09-23-2022 Subsequent hospital visit by physician Bone Density [facility] De [facility] Radiology Comment on above: Other osteoporosis w ithout current pathological fracture [M81.8] Start: 02-10-2022 Telephone encounter Darrian Florez MD Work Phone: Rheumatology Comment on above: Results Start: 02-25-2021 End: 02-25-2021 Patient encounter procedure Rigo Gonzalez -Pre-Surgical Testing Start: 02-20-2021 End: 02-20-2021 Subsequent hospital visit by physician Xr [facility] Comment on above: Seropositive rheumat oid arthritis (HCC) [M05.9] Start: 08-22-2020 End: 08-22-2020 Subsequent hospital visit by physician Bone Density [facility] De [facility]iology Comment on above: Rheumatoid arthritis 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) [M05.79] Procedures Date Procedure Procedure Detail Performing Clinician Start: 03-14-2024 Radex hand minimum 3 views Nidia Weston APRN.METER/RELAY CRAFTSMAN Work Phone: Start: 01-12-2023 VITAMIN D 25 HYDROXY Am parmjit Weston APRN.METER/RELAY CRAFTSMAN Work Phone: Start: 09-23-2022 Dxa bone density [...] Start: 12-01-2026 Diabetes Screening Diabetes Screenin anjali [facility] Start: 06-06-2025 End: 06-06-2025 Patient encounter procedure Radiology Comment on above: Seropositive rheumat oid arthritis (HCC) [M05.9] Return for May 2025 for RA and OP and review of DXA. Start: 05-23-2025 End: 05-23-2025 ambulatory 05/23/2025 8:00 AM EDT Results Only [facility] [address] [place] [address] [place] [address] labs [facility] Comment on above: labs Start: 05-16-2025 End: 08-15-2025 25-hydroxyvitamin D3 [Mass/volume] in Serum or Plasma VITAMIN D 25 HYDROXY Lab Routine Seropositive rheumatoid arthritis (HCC) Ulcerative pancolitis (HCC) Other osteoporosis without current pathological fracture History of bisphosphonate therapy Expected: 05/16/2025, Expires: 08/15/2025 [facility] Comment on above: Expected: 05/16/2025 , Expires: 08/15/2025 Start: 05-16-2025 End: 08-15-2025 C reactive protein [Mass/volume] in Serum or Plasma C-REACTIVE PROTEIN Lab Routine Seropositive rheumatoid arthritis (HCC) Ulcerative pancolitis (HCC) Expected: 05/16/2025, Expires: 08/15/2025 [facility] Comment on above: Expected: 05/16/2025 , Expires: 08/15/2025 Start: 05-16-2025 End: 08-15-2025 CBC W Auto Differential panel - Blood COMPLETE BLOOD COUNT AND DIFFERENTIAL Lab Routine Seropositive rheumatoid arthritis (HCC) Rheumatoid arthritis 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) On sulfasalazine therapy Ulcerative pancolitis (HCC) Expected: 05/16/2025, Expires: 08/15/[address] [facility] Work Phone: Comment on above: Expected: 05/16/2025 , Expires: 08/15/2025 Start: 05-16-2025 End: 08-15-2025 Collagen crosslinked C-telopeptide [Mass/volume] in Serum or Plasma C TELOPEPTIDE, BETA Lab Routine Other osteoporosis without current pathological fracture History of bisphosphonate therapy Expected: 05/16/2025, Expires: 08/15/2025 [facility] Comment on above: Expected: 05/16/2025 , Expires: 08/15/2025 Start: 05-16-2025 End: 08-15-2025 Renal function 2000 panel - Serum or Plasma RENAL FUNCTION PANEL Lab Routine Other osteoporosis without current pathological fracture History of bisphosphonate therapy Expected: 05/16/2025, Expires: 08/15/2025 [facility] Comment on above: Expected: 05/16/2025 , Expires: 08/15/2025 Start: 02-14-2025 End: 02-14-2025 Patient encounter procedure 02/14/2025 7:20 AM EDT Office Visit Rheumatology [address] [place] [address] Darrian Dubon MD [address] [place] [address] Dubon Rheumatology Comment on above: future with dr. Vince melton Start: 10-05-2024 End: 10-05-2024 Patient encounter procedure 10/05/2024 7:20 AM EST Office Visit Rheumatology [address] [place] [address] Darrian Dubon MD [address] [place] [address] [facility] Rhe[facility]ology Comment on above: RA Start: 09-16-2024 End: 12-16-2024 25-hydroxyvitamin D3 [Mass/volume] in Serum or Plasma VITAMIN D 25 HYDROXY Lab Routine Vitamin D deficiency Other osteoporosis without current pathological fracture Expected: 09/16/2024 (Approximate), Expires: 12/16/2024 [facility] Comment on above: Expected: 09/16/2024 (Approximate), Expires: 12/16/2024 Start: 09-16-2024 End: 12-16-2024 C reactive protein [Mass/volume] in Serum or Plasma C-REACTIVE PROTEIN Lab Routine Rheumatoid arthritis 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) Expected: 09/16/2024 (Approximate), Expires: 12/16/[address] [facility] Work Phone: Comment on above: Expected: 09/16/2024 (Approximate), Expires: 12/16/2024 Start: 09-16-2024 End: 12-16-2024 Erythrocyte sedimentation rate SEDIMENTATION RATE, WESTERGREN Lab Routine Rheumatoid arthritis 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) Expected: 09/16/2024 (Approximate), Expires: 12/16/2024 [facility] Comment on above: Expected: 09/16/2024 (Approximate), Expires: 12/16/2024 Start: 09-16-2024 End: 12-16-2024 Renal function 2000 panel - Serum or Plasma RENAL FUNCTION PANEL Lab Routine Rheumatoid arthritis 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) Other osteoporosis without current pathological fracture Expected: 09/16/2024 (Approximate), Expires: 12/16/2024 [facility] Comment on above: Expected: 09/16/2024 (Approximate), Expires: 12/16/2024 Start: 07-17-2024 Influenza vaccination C [facility] Start: 05-09-2024 End: 05-09-2024 ambulatory 05/09/2024 9:30 AM EDT [facility] In[facility] [address] [place] [address] Return labs in 1 month, for reclast and ov in 1-2 months after labs Infusion Comment on above: Return labs in 1 thu, for reclast and ov in 1-2 months after labs Start: 05-09-2024 End: 05-09-2024 Patient encounter procedure 05/09/2024 9:00 AM EDT Office Visit Rheumatology [address] [facility] [place] [id number] Nidia Weston, NETWORK COORDINATOR.METER/RELAY CRAFTSMAN [address] [facility] [place] [id number] Return labs in 1 month, for reclast and ov in 1-2 months after labs Rheumatology Comment on above: Return labs in 1 thu, for reclast and ov in 1-2 months after labs Start: 2024 RSV Vaccine (1 - 1-d ose 60+ series) RSV Vaccine (1 - 1-dose 60+ series) [facility] Start: 2024 RSV Vaccine (1 - Ris k 60-74 years 1-dose series) RSV Vaccine (1 - Risk 60-74 years 1-dose series) [facility] Start: 04-13-2024 End: 07-13-2024 25-hydroxyvitamin D3 [Mass/volume] in Serum or Plasma VITAMIN D 25 HYDROXY Lab Routine Rheumatoid arthritis 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) Vitamin D deficiency Expected: 04/13/2024 (Approximate), Expires: 07/13/2024 [facility] Comment on above: Expected: 04/13/2024 (Approximate), Expires: 07/13/2024 Start: 04-13-2024 End: 07-13-2024 C reactive protein [Mass/volume] in Serum or Plasma C-REACTIVE PROTEIN Lab Routine Rheumatoid arthritis 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) Expected: 04/13/2024 (Approximate), Expires: 07/13/2024 [facility] Comment on above: Expected: 04/13/2024 (Approximate), Expires: 07/13/2024 Start: 04-13-2024 End: 07-13-2024 Erythrocyte sedimentation rate SEDIMENTATION RATE, WESTERGREN Lab Routine Rheumatoid arthritis 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) Expected: 04/13/2024 (Approximate), Expires: 07/13/2024 [facility] Comment on above: Expected: 04/13/2024 (Approximate), Expires: 07/13/2024 Start: 04-13-2024 End: 07-13-2024 Renal function 2000 panel - Serum or Plasma RENAL FUNCTION PANEL Lab Routine Rheumatoid arthritis 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) Expected: 04/13/2024 (Approximate), Expires: 07/13/[address] [facility] Work Phone: Comment on above: Expected: 04/13/2024 (Approximate), Expires: 07/13/2024 Start: 04-13-2024 End: 04-13-2025 XR Hand - bilateral PA and Lateral and Oblique XR HAND GENERAL 3V PA/LAT/OBL BILATERAL Radiology Routine Rheumatoid arthritis 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) Expected: 04/13/2024 (Approximate), Expires: 04/13/2025 [facility] Comment on above: Expected: 04/13/2024 (Approximate), Expires: 04/13/2025 Start: 11-16-2023 Behavioral Health Screening Behavioral Health Screening [facility] Start: 11-16-2023 Depression Assessment Depression Ass essment [facility] Start: 08-22-2023 DIABETES SCREEN DIABETES SCREEN [facility] Start: 07-17-2023 Influenza vaccination [facility] Start: 07-04-2023 End: 09-03-2023 25-hydroxyvitamin D3 [Mass/volume] in Serum or Plasma VITAMIN D 25 HYDROXY Lab Routine Other osteoporosis without current pathological fracture Expected: 07/04/2023 (Approximate), Expires: 09/03/[address] [facility] Work Phone: Comment on above: Expected: 07/04/2023 (Approximate), Expires: 09/03/2023 Start: 07-04-2023 End: 09-03-2023 MONOCLONAL PROT UR W/INTERP MONOCLONAL PROT UR W/INTERP Lab Routine Elevated serum immunoglobulin free light chain level Expected: 07/04/2023 (Approximate), Expires: 09/03/[address] [facility] Work Phone: Comment on above: Expected: 07/04/2023 (Approximate), Expires: 09/03/2023 Start: 07-04-2023 End: 09-03-2023 Renal function 2000 panel - Serum or Plasma RENAL FUNCTION PANEL Lab Routine Other osteoporosis without current pathological fracture Expected: 07/04/2023 (Approximate), Expires: 09/03/[address] [facility] Work Phone: Comment on above: Expected: 07/04/2023 (Approximate), Expires: 09/03/2023 Start: 12-29-2022 End: 02-28-2023 25-hydroxyvitamin D3 [Mass/volume] in Serum or Plasma VITAMIN D 25 HYDROXY Lab Routine Vitamin D deficiency Expected: 12/29/2022, Expires: 02/28/[address] [facility] Work Phone: Comment on above: Expected: 12/29/2022 , Expires: 02/28/2023 Start: 11-16-2022 DEPRESSION ASSESSMENT DEPRESSION ASS ESSMENT [facility] Start: 07-17-2022 Influenza vaccination INFLUENZA (#1) [facility] Start: 07-17-2021 Influenza vaccination INFLUENZA (#1) [facility] Start: 04-15-2021 COVID-19 VACCINE (2 - Starr risk 3-dose series) COVID-19 VACCINE (2 - Starr risk 3-dose series) [facility] Start: 04-15-2021 COVID-19 VACCINE (2 - Starr risk series) COVID-19 VACCINE (2 - Starr risk series) [facility] Start: 05-03-2020 PNEUMOCOCCAL (3 - PPSV23 if available, else PCV20) PNEUMOCOCCAL (3 - PPSV23 if available, else PCV20) [facility] Start: 05-03-2020 PNEUMOCOCCAL (3 - PPSV23 or PCV20) PNEUMOCOCCAL (3 - PPSV23 or PCV20) [facility] Start: 05-03-2020 Pneumococcal vaccination Pneumococcal Vaccine (3 of 3 - PPSV23 or PCV20) [facility] Start: 05-03-2020 Pneumococcal Vaccine : 50+ (3 of 3 - PPSV23, PCV20 or PCV21) Pneumococcal Vaccine: 50+ (3 of 3 - PPSV23, PCV20 or PCV21) [facility] Start: 02-11-2020 Adult depression screening assessment DEPRESSION SCREENING [facility] Start: 2019 PROSTATE CANCER SCREENING DISCUSSION PROSTATE CANCER SCREENING DISCUSSION [facility] Start: 2019 Prostate specific antigen measurement Prostate Cancer Screening Discussion [facility] Start: 2014 SHINGRIX VACCINE (1 of 2) SHINGRIX VACCINE (1 of 2) [facility] Start: 2009 COLOGUARD (FIT-DNA) COLOGUARD (FIT-D NA) [facility] Start: 2009 Colonoscopy COLONOSCOPY [facility] Start: 2009 COLORECTAL CANCER SCREENING COLORECTAL CANCER SCREENING [facility] Start: [address] COLONOGRAPHY [facility] Start: 2009 FECAL OCCULT BLOOD FECAL OCCULT BLOO D [facility] Start: 2009 Screening for malign ant neoplasm of colon [facility] Start: 2009 SIGMOIDOSCOPY SIGMOIDOSCOPY [facility] Start: 1999 Lipid panel Lipid Screening [facility] Start: 1999 LIPID SCREEN LIPID SCREEN [facility] Start: 1983 SHINGRIX VACCINE (1 of 2) SHINGRIX VACCINE (1 of 2) [facility] Start: 1983 Urine microalbumin profile [facility] Start: 1982 Anxiety Screening Anxiety Screening [facility] Start: 1982 Depression Screening Depression Scre ening [facility] Start: 1982 HIV SCREENING HIV SCREENING [facility] Start: 1982 HIV screening HIV Screening [facility] Start: 1982 MMR Vaccine (1 of 2 - Risk 2-dose series) MMR Vaccine (1 of 2 - Risk 2-dose series) [facility] Start: 1974 Meningococcal B Vaccine: Consider Based On Risk (1 of 4 - Increased Risk) Meningococcal B Vaccine: Consider Based On Risk (1 of 4 - Increased Risk) [facility] End: 11-04-2025 BD DXA TRABECULAR BONE SCORE (TBS) BD DXA TRABECULAR BONE SCORE (TBS) Radiology Routine Seropositive rheumatoid arthritis (HCC) Ulcerative pancolitis (HCC) Other osteoporosis without current pathological fracture History of bisphosphonate therapy 1 Occurrences starting 10/05/2024 until 11/04/2025 [facility] Comment on above: 1 Occurrences starti ng 10/05/2024 until 11/04/2025 End: 11-04-2025 DXA Skeletal system.axial Views for bone density DXA-AXIAL SKELETON Radiology Routine Seropositive rheumatoid arthritis (HCC) Ulcerative pancolitis (HCC) Other osteoporosis without current pathological fracture History of bisphosphonate therapy 1 Occurrences starting 10/05/2024 until 11/04/2025 [facility] Comment on above: 1 Occurrences starti ng 10/05/2024 until 11/04/2025 [facility] Immunizations Immunization Date Immunization Notes Care Provider Feng diaz 06-09-2022 zoster vaccine recombinant Nidia Enrico NETWORK COORDINATOR.METER/RELAY CRAFTSMAN Work Phone: [facility] 03-17-2022 zoster vaccine recombinant Nidia Enrico NETWORK COORDINATOR.METER/RELAY CRAFTSMAN Work Phone: [facility] 09-27-2020 Influenza, injectabl e, Madin [place] Canine Kidney, preservative free, quadrivalent Nidia Enrico NETWORK COORDINATOR.METER/RELAY CRAFTSMAN Work Phone: [facility] 09-27-2020 influenza virus vacc ine, unspecified formulation Nidia Weston NETWORK COORDINATOR.METER/RELAY CRAFTSMAN Work Phone: [facility] 10-28-2019 Influenza, injectabl e, Madin [place] Canine Kidney, quadrivalent with preservative Darrian Dubon MD Work Phone: [facility] 08-29-2019 influenza, injectabl e, quadrivalent, preservative free Nidia Weston NETWORK COORDINATOR.METER/RELAY CRAFTSMAN Work Phone: [facility] 08-15-2016 influenza, injectabl e, quadrivalent, preservative free Darrian Dubon MD Work Phone: [facility] 12-08-2015 hepatitis A and hepa titis B vaccine Darrian Dubon MD Work Phone: [facility] 11-01-2015 pneumococcal conjuga te vaccine, 13 valent Darrian Dubon MD Work Phone: [facility] 07-31-2015 influenza, seasonal, injectable, preservative free Darrian Dubon MD Work Phone: [facility] 05-31-2015 hepatitis A and hepa titis B vaccine Darrian Dubon MD Work Phone: [facility] 05-03-2015 hepatitis A and hepa titis B vaccine Darrian Dubon MD Work Phone: [facility] 05-03-2015 pneumococcal polysaccharide vaccine, 23 valent Darrian SanchezAshkar MD Work Phone: [facility] Payers Date Payer Category Payer Medicare DEVOTED [facility] [id number] 2021-Present [phone] [address] [place] [address] O [id number] [id number] 2021 Unknown [id number] 2011 Medicare [id number]. [id number]. [id number] 1964 Unknown [id number] 2.16.840.1.925366.3.579. 2.593 1964 Unknown [id number] 2.16.840.1.202041.3.579. 2.593 1964 Unknown [id number] 2.16.840.1.077095.3.579. 2.593 1964 Unknown [id number] 2.16.840.1.493571.3.579. 2.593 1964 Unknown [id number] 2.16.840.1.656029.3.579. 2.1259 1964 Unknown [id number] 2.16.840.1.815444.3.579. 2.1259 1964 Unknown [id number] 2.16.840.1.924051.3.579. 2.1259 1964 Unknown [id number] 2.16.840.1.598875.3.579. 2.1259 1964 Unknown [id number] 2.16.840.1.004920.3.579. 2.727 1964 Unknown [id number] 2.16.840.1.103912.3.579. 2.727 1964 Unknown [id number] 2.16.840.1.990100.3.579. 2.727 1964 Unknown [id number] 2.16.840.1.508998.3.579. 2 1964 Unknown [id number] 2.16.840.1.349228.3.579. 2 1964 Unknown [id number] 2.16.840.1.188461.3.579. 2 1964 Unknown [id number] 2.16.840.1.062136.3.579. 2 1964 Unknown [id number] 2.16.840.1.123554.3.579. 2 1964 Unknown [id number] 2.16.840.1.386034.3.579. 1964 Unknown [id number] 2..840.1.603029.3.579. 2 1964 Unknown [id number] 2..840.1.780787.3.579. 2 1964 Unknown [id number] 2.16.840.1.346591.3.579. 2 1964 Unknown [id number] 2.16.840.1.988366.3.579. 2 1964 Unknown [id number] 2.16.840.1.379917.3.579. 2 1964 Unknown [id number] 2.16.840.1.255761.3.579. 2 1964 Unknown [id number] 2.16.840.1.435653.3.579. Private Health Insurance Self Pay [id number] Self-pay Self Pay [id number] Social History Date Type Detail Facility Tobacco smoking stat [place] Unknown if ever smoked [facility] Start: 1965 Sex Assigned At Male F [facility] Start: 01-24-2020 End: 12-01-2023 Tobacco smoking status NHIS Ex-smoker [facility] Start: 01-24-2020 End: 12-01-2023 Tobacco use and exposure Smokeless tobacco non-user [facility] Start: 02-20-2021 End: 05-09-2024 Alcohol intake Lifetime non-drinker (finding) [facility] Start: 01-24-2020 History SDOH Alcohol Frequency 1 [facility] Start: 01-24-2020 End: 12-01-2023 Tobacco Comment quit in 2011 [facility] Start: 1965 Sex Assigned At Not on file C [facility] Start: 01-19-2022 End: 01-29-2022 Exposure to SARS-CoV-2 (event) Unable to assess [facility] History of tobacco use Current smoker [facility] Start: 01-24-2020 End: 05-04-2023 History of Social function [facility] Start: 01-24-2020 End: 05-04-2023 Alcohol Use Disorder Identification Test - Consumption [AUDIT-C] [facility] How often to you hav e a drink containing alcohol? Never [facility] Average Number of Drinks Not on file [facility] Start: 07-23-2020 End: 02-20-2021 Exposure to SARS-CoV-2 (event) Not sure [facility] Goals Date Patient Goal Desired Activity [...] apt with me. thank you kindly, fa [facility] 11-23-2024 Miscellaneous Notes Thank you for trying. [...] Please offer appt with Dr Dubon or CLINCHING MACHINE OPERATOR, if patient still interested. Thank you for [...] apt with me or any rheum ANGÉLICA (CLINCHING MACHINE OPERATOR or PA) who has opening soon. thank you kindly, fa -Pt returning call to office. Pt identified by name and date. Pt given message as detailed below and verbalized understanding. -States the only trauma/injury he has experienced recently is that he stubbed his RT middle toe 3 days ago. 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 Denies any change in color [...] feet/fingers/shoulders Please advise documented in this encounter [facility] 11-23-2024 Telephone encounter Note Patient returned call and can not make it today, seen his PCP for the issue.please advise. [facility] 11-23-2024 Telephone encounter Note Hi Dr. Dubon [...] Jordyn KELLER November 23, 2024 9:[address] [facility] 11-23-2024 Telephone encounter Note Please offer appt with Dr Dubon or CLINCHING MACHINE OPERATOR, if patient still interested. [facility] 11-22-2024 Telephone encounter Note Thank you [...] apt with me or any rheum ANGÉLICA (CLINCHING MACHINE OPERATOR or PA) who has opening soon. thank you kindly, fa [facility] 11-22-2024 Note Urology Office/Clini c Note Chief Complaint referral HPI Staff 59yr old male referred by Dr. Lackey for kidney stones w/ KUB. KUB done at [facility] on 11/14/24. Pt has seen Dr. [...] [facility] [address], [place] [id number]- Additional Instructions: f/u pending CT Patient Education [...] Gross hematuria Hea (more content not included)... [facility] Comment on above: Result Comment: Elec tronically [...] toe 3 days ago. 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 Denies any change in color [...] Pt then apologized and ended the call. [facility] 11-21-2024 Note Patient Education Nephrology Dietary Guidelines [...] ? 8 oz (237 mL) of milk, gtyqfuk-ankjpdnhuxkd-vkrhf milk, and calcium-fortifiedfruit juice. Calcium-fortified means that [...] Spinach (cooked), rhubarb, beets, sweet potatoes, and Zambian chard. ? Peanuts. ? Potato chips, hebrew fries, and baked potatoes with skin on. ? Nuts and nut products. ? Chocolate. ??? If you regularly take a diuretic medicine, make sure to eat at least 1 or 2 servings of fruits or vegetables that are high in potassium each day. These include: ? Avocado. ? Banana. ? [place], prune, carrot, or tomato juice. ? Baked [...] fish oil, or vitamin B6. ??? Take xrcc-sll-wtmtbmy and prescription medicines only as told by your health (more content not included)... [facility] 11-21-2024 Telephone encounter Note Left message requesting return call. [facility] 11-21-2024 Telephone encounter Note Thank you for [...] had before ? thank you kindly, fa [facility] 11-21-2024 Telephone encounter Note Images from [...] not completely. Pain: Bilateral feet/fingers/shoulders Please advise [facility] 10-05-2024 Instructions Darrian Dubon MD - 10/05/2024 7:56 AM EST -PLEASE NOTE THAT WE REVIEW ALL YOUR TEST RESULTS AT YOUR NEXT FOLLOW UP VISIT WITH YOU. IF ANY ABNORMAL LAB REQUIRES SOONER ATTENTION, WE WILL CONTACT YOU. -If you have signed up on adBrite, we will release your test results through adBrite. I wish you the best of health [...] track your nutrition and calcium intake on www.Southern Air.Preferred Commerce This provides macro and micronutrient intake and requirements. - You can track your calcium intake on TwitJump or any other calcium tracker of your [...] youtube and copy and paste this link: [email or web address].[email or web address] This is done by a Physical Medicine and Rehab doctor who is a professor of kinesiology in [facility]. She completed a PhD at the [employer]. I hope you find it helpful. Please [...] hazelnuts, legumes, soybeans and other beans) - [place] (potatoes, avocados, almonds, peanuts) - Chromium (broccoli, [...] Eur J Clin Nutr 62, 155-161 (2007). https://doi.org/10.1038/sj.ejcn.528333 8 -Clyde Rosa, Trisha Lara, Bar De Leon et al. Isoflavone intervention and its impact on bone mineral density in postmenopausal women: a systematic review and meta-analysis of randomized controlled trials. Osteoporos Int (2022). https://doi.org/10.1007/m22728-379-791 43-y -Jack Finch, Trisha Lara, Andrez Grant. et al. Effects of isoflavone interventions on bone mineral density in postmenopausal women: a systematic review and meta-analysis of randomized controlled trials. Osteoporos Int 31, 6232-1236 (2020). https://doi.org/10.1007/m49953-575-017 76-z - Benefits of consuming soy in whole foods are listed in this article at the PCR website: https://www.pcrm.org/good-nutrition/nu trition-information/qtp-ctm-iwtznl - Prunes have been reported to help [...] Am J Clin Nutr. 2021Aug 21;116(4):897-910. doi: 10.1093/ajcn/cuwa417. PMID: 47725742. -Benefit to bone density and inflammation: Hebert WYMAN, Perrin, Glory SOLARES, Sivakumar ALDANA, Trey CUBA. The Role of Prunes in Modulating Inflammatory Pathways to Improve Bone Health in Postmenopausal Women. Adv Nutr. 2021Aug 17;13(5):3470-0032. doi: 10.1093/advances/djuf410. PMID: 32381638; PMCID: OMB1898455. - Information on Vitamin K2: more recently [...] with the exception of Natto (a traditional Yakut food made from fermented soybeans) has high [...] of these foods, please consult with your Ornamental Metal Erector Apprentice or Physician first. Review of Osteoporosis medications [...] in the office. This medication is given jail, indefinitely. Prolia should not be discontinued without [...] looked into transition therapy. Recent study from [facility] Slim et al, 04/11/2020 (PMID: [id number].The study is ongoing, clinicaltrials.gov; [id number]), reported one infusion of IV Reclast did [...] initiated in patients who have had an IA or stroke in the preceding year or those considered high risk. We may need a clearance from a Flight Radio Operator prior to proceeding with this medication in [...] and the different available medications at the [place] [employer] website at: https://www.rheumatology.org/I-Am-A/Ernesto greennt-Caregiver/Diseases-Conditions/Os [...] Osteoporosis Foundation) http://www.osteo.org/osteolinks.asp National Institutes of Health: 9-208-573-BONE The Calcium Information Center: Non-Dairy, Plant based Milk, can contain in1 glass up to 450 mg of calcium (300 to 450 mg) Exampled include Oat Milk, Flax Milk, Fishkill Milk, Cashew Milk, Soy Milk, Peas Milk Examples of Food Sources of Calcium from NIH Food Milligrams (mg) per serving Percent DV* Soymilk, calcium-fortified, 8 ounces 299 30 [place] juice, calcium-fortified, 6 ounces 261 26 Tofu, firm, made with calcium sulfate, cup* 253 25 Tofu, soft, made with calcium sulfate, cup* 138 14 Bpllc-sh-cxf cereal, calcium-fortified, 1 cup 100-1,000 10-100 Turnip greens, fresh, boiled, cup 99 10 Kale, raw, chopped, 1 cup 100 10 Kale, fresh, cooked, 1 cup 94 9 Micronesian cabbage, bok marin, raw, shredded, 1 cup 74 7 Bread, white, 1 slice 73 7 Tortilla, corn, itwfh-ma-urij/marshall, one 6 diameter 46 5 Tortilla, flour, rnxjq-de-obkp/marshall, one 6 diameter 32 3 Bread, whole-wheat, [...] daily with a meal; Certain patients require 6761-8320 international units daily and in patients deficient [...] bones. Studies show approximately 50% of [place] men and women are vitamin D deficient [...] of falling. Additional Information is available from: [facility] Osteoporosis Information: https://my.[facility].org/departm ents/orthopaedics-rheumatology/depts/o steoporosis-metabolic The Bone Health and Osteoporosis Foundation (formerly the National Osteoporosis Foundation) : https://www.bonehealthandosteoporosis. org International Osteoporosis Foundation: https://www.osteoporosis.foundation http://ods.od.nih.gov/factsheets/vitam ind.asp National Institutes of Health: 8-651-711-BONE The Calcium Information Center: I recommend following [...] track your nutrition and calcium intake on www.Southern Air.Preferred Commerce This provides macro and micronutrient intake and [...] that features the Whole Plant Based diet, [place] over knives (see video online and visit website). Another movie that was recently released is: Eating You Alive (you can find it at Scout) and The [employer] movie Dr. Fauzia Ansari is a [facility] physician who has done research and published books, is an expert in Whole Plant based diet for prevention and reversal of heart disease. His website is Zeuss. 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 Rock Velazco's Program for Reversing Diabetes, Your Body in Balance You can also watch YouTube channel : The Doc & Mill Work Dr. Anthony Carlson has shown the benefit of a starch based whole food plant based diet to his Rheumatoid Arthritis patients, as well as patient with diabetes II, hypertension, obesity, multiple sclerosis, heart disease, acne, and other, his website: www.[employer]illon Software.Preferred Commerce Dr. Yayo Allred is a renowned scientist immunology, who has studied and researched the benefits of the Whole plant based diet. He has also researched the adverse effects of animal proteins on health. He presents many of his research findings in his book The [place] study. Dr. Gerber Becker has completed many research trials proving the reversal of diseases, such as heart disease and early prostate cancer, with healthy lifestyle and the Whole Plant based diet. Dr. Gerber Becker website is: www.carmenU4EA Networks.Preferred Commerce His new book: Undo It, has evidence [...] videos and YouTube, for example https://youtu.be/aSgNkhgVtks and https://youPawngou.be/lXXXygDRyBU. He has written multiple books including: How Not To and How Not To Diet He is now working on his next book: How Not To Age Dr. Danitza Dash (from the [facility]), has articles on the following website: 121nexus For additional ideas on recipes, you could find additional information on practical to follow recipes by reading or watching online and YouTube such as: Mill Work AJ, Cooking With Plants, The Vegan Corner (recipes from an [place] Mill Work), The Whole Foods Plant Based Cooking Show and visiting the provided websites for additional information on the whole plant based benefit and cooking recipes. You can also consider watching the vlogs of some of the plant based Athletes such as Graeme Kamara, Agustin Lundy on [employer]. You can find very good recipes for [...] Dr. Jenny Degroot Lifestyle Medicine (is a Flight Radio Operator and Lifestyle Medicine Physician) -Sometimes it helps to start with a simple diet of potatoes, that Dr. Carlson calls Yarelis Carrie. You can learn more about that in his website: www.Loveland Technologies This is the website for Yarelis Carrie pdf : https://www.EmSense.Preferred Commerce/wp-content /uploads//Georgiana-Carrie_Website_Pr int_Version-1.pdf You can also read more on Dr. Carlson's website - When you goal is to lose weight, it is important to listen to your hunger cues. Don't eat until you are stuffed. As soon as you feel you are no longer hungry, stop eating. There is a Yakut saying that says Tammie Vega, meaning eat until you are 80% full. I say avoid eating past 80% of your stomach fullness. This originated from the city of [facility], which is one of the sites reported in the Blue TVShow Time book, one of the highest cities in the world for having the most centenarians. Remember your stomach needs space and capacity for proper digestion of your food. Like a dry food products mixer or a asphalt blender, they have a limit for proper function, and should not be filled to the top. You can read more about that from the [facility] article Don t Eat Until You re Full ? Instead, Mind Your Tammie [place] , at https://health.[facility].org/don q-raj-zihkn-dsnbx-frin-loxnfbw-mind-yo es-izox-zfbph-salvador-annie/ Most plants contain proteins and all essential [...] you will need to consult with a molded goods inspector trimmer to have further evaluation to exclude Celiac [...] - Gentle Yoga Anyone Can Do Anywhere www.[employer].Preferred Commerce/yoga Also on youtube: yoga with Karlie For women, especially after menopause, strength training is important. You can read more on that from Clare Morley, PhD at her website https://www.Zenph and YouTube videos. If you are a beginner, it is best to start with a physical therapist or personal banker. There are also several Aps that offer virtual personal training 3- Good Sleep (poor sleep impacts everything, recommended sleep is 7 to 8 hrs. a night). Certain people may need more sleep, depending on their age and other conditions. Meditation and relaxation techniques have shown to help with improving sleep. Try to be consistent with your sleep. You can find more at the [facility] Website on : https://my.[facility].org/departm ents/wellness/store/go-well#sleep-tab 4- Stress management, be happy, laugh [...] Calm Insight Timer Meditation Stress Free Now ([facility]). You can find more resources at the [facility] website at : https://my.[facility].org/departm ents/wellness/store/go-well#stress-iron e-tab There are many free youtube videos on guided meditation as well For Breathing techniques: You can watch John Carlisle and learn the breathing technique and its benefits by watching the following YouTube: https://The Health Wagon.be/2Cc4U-RQm96?si=-Xtdfr 4UpsJOUbDU. Learning about your awareness/spiritual being, is [...] work with a psychotherapist or behavioral health graduation coach. When having a psychiatric condition, it [...] or a higher dose. Raw: Garlic, Cilantro, [place] nuts, Pumpkin seeds, [place] seeds and Flax seed powder have been reported to help with certain metal detoxification such as mercury. [place]-3 plant based rich foods are good anti-inflammatory [...] the Whole Plant Based Diet, by watching [place] over Boost[employer] movie and then review website. There are many other resources and educational information on the Whole plant based diet on the Internet and documentaries. There are other resources for wellness that you can also benefit from, such as the [facility] Wellness website, [facility]org and includes Plant based and Mediterranean diet, yoga and meditation. Please avoid all dairy products. You could use non-dairy milk such as Flax milk, Cashew milk, [place]kill milk, Rice milk, Oat milk or Hemp [...] below, just add the ingredients to your asphalt blender and blend: - Probably the healthiest smoothie is one that contains mostly green leafy vegetables (especially containing kale), some berries, flax seed and water. This might not returned telephone equipment appraiser to be sweet. You can add one or two pitted dates or a frozen banana for natural sweetness. Examples of healthy green smoothies, pack your asphalt blender (at least half way to 3/4) with a mix of green leafy veggies, then top your asphalt blender with fruits (such as banana or [...] risk for kidney stones. The same with emirati chards and beet leaves. If you don't [...] of your health and wellbeing. At the [facility], we work as a team for your care, along with Nurse Practitioners, Physician Assistants, Nurses and Medical Assistants. It is a privilege and honor to serve you. Thank you for choosing The [facility] for your healthcare. Sincerely, Darrian Dubon [...] usual activities immediately. documented in this encounter [facility] 10-05-2024 Note HNO ID: [id number] Author: DARRIAN DUBON MD Service: ? Author Type: Physician Type: Progress Notes Filed: 10/16/2024 19:47 Note Text: FOLLOW UP VISIT Patient's Name: Jam Erwin [facility] [id number] PCP: Jose L Lackey MD [address] [place] [address] Consult Requested by: Jose L Lackey MD [address] [facility] [address] Other physicians: Marine Electrician prevBrittney Lebron MD (his prev. molded goods inspector trimmer left- Ronald Brown MD) ; Now following [...] No stiffness He is on sulfasalazine per molded goods inspector trimmer for his UC and this has been controlling his RA He is pleased with his treatment regimen He also states that his IBD is well controlled, states told is in remission, on Entyvio Doing exercise and working with personal banker at the gym and will be going [...] in IBD and is following with local molded goods inspector trimmer for that. Has been on Humira since Sep 2020 (started with 80 mg loading dose and since has been on 40 mg every 2 wks) He was pleased with Enbrel response to his RA and later was switched to Humira, reports has similar benefit and is pleased with response. His molded goods inspector trimmer switched him to Humira for optimal mgt of IBD and he feels this has helped his IBD better. Reports still gets 8 BM's a day, does not have BM at night, does not have to wake up from sleep. Has been following with his molded goods inspector trimmer for his UC Had colonoscopy 11/22/2021 with reported marked improvement in asc/transv/desc colon and severe active in rectum, histopath with active colitis with erosions. States Dr. Lebron has started him on rectal enemas. Recent colonoscopy with reported active colitis. He tells me that he continues to have multiple BM's; His molded goods inspector trimmer prescribed pred. course, completed recently. No jt [...] us, he is on Humira per his Marine Electrician He is off Enbrel, was switched to Humira by his molded goods inspector trimmer. (previously was on Enbrel 25 mg twice a wk and has been in remission since on Enbrel and very pleased with his treatment regimen) He is on Humira 40 mg every 2 wks by his Marine Electrician He is on sulfasalazine, Humira and mesalamine enemas per his molded goods inspector trimmer I have reviewed benefits of a whole food plant based diet He consumes dairy, cheese, sausage, hamburger. I have advised him on avoiding meats and dairy and reviewed reports and patient experience with flare of IBD and RA, as well as gastrointestinal dysbiosis. I advised him on a whole foods plant based diet. He has a asphalt blender (MagicEvent) and interested in making healthy smoothies and [...] I have ad (more content not included)... [facility] 10-05-2024 History of Present illness Narrative Images from the original note were not included. FOLLOW UP VISIT Patient's Name: Jam Erwin [facility] [address] PCP: Jose L Lackey MD [facility] [place] [address] Consult Requested by: Jose L Lackey MD [address] [facility] [address] Other physicians: Marine Electrician prev. Nel Lebron MD (his prev. molded goods inspector trimmer left- Ronald Brown MD) ; Now following [...] No stiffness He is on sulfasalazine per molded goods inspector trimmer for his UC and this has been controlling his RA He is pleased with his treatment regimen He also states that his IBD is well controlled, states told is in remission, on Entyvio Doing exercise and working with personal banker at the gym and will be going [...] in IBD and is following with local molded goods inspector trimmer for that. Has been on Humira since Sep 2020 (started with 80 mg loading dose and since has been on 40 mg every 2 wks) He was pleased with Enbrel response to his RA and later was switched to Humira, reports has similar benefit and is pleased with response. His molded goods inspector trimmer switched him to Humira for optimal mgt of IBD and he feels this has helped his IBD better. Reports still gets 8 BM's a day, does not have BM at night, does not have to wake up from sleep. Has been following with his molded goods inspector trimmer for his UC Had colonoscopy 11/22/2021 with reported marked improvement in asc/transv/desc colon and severe active in rectum, histopath with active colitis with erosions. States Dr. Lebron has started him on rectal enemas. Recent colonoscopy with reported active colitis. He tells me that he continues to have multiple BM's; His molded goods inspector trimmer prescribed pred. course, completed recently. No jt [...] us, he is on Humira per his Marine Electrician He is off Enbrel, was switched to Humira by his molded goods inspector trimmer. (previously was on Enbrel 25 mg twice a wk and has been in remission since on Enbrel and very pleased with his treatment regimen) He is on Humira 40 mg every 2 wks by his Marine Electrician He is on sulfasalazine, Humira and mesalamine enemas per his molded goods inspector trimmer I have reviewed benefits of a whole food plant based diet He consumes dairy, cheese, sausage, hamburger. I have advised him on avoiding meats and dairy and reviewed reports and patient experience with flare of IBD and RA, as well as gastrointestinal dysbiosis. I advised him on a whole foods plant based diet. He has a asphalt blender (MagicEvent) and interested in making healthy smoothies and [...] in this patient with known rheumatoid arthritis. Electronic Intelligence Officer: CODY Transcribe Date/Time: Feb 20 2021 9:52A [...] site where has fallen arch. Has seen Engine Testing Supervisor in the remote past for the fallen arch, not recently. Feels gets stiff when not moving as much. Denies any injury or trauma. Denies any pain to me today States his molded goods inspector trimmer has prescribed prednisone course due to IBD flare States after scope was told is flared. He is on sulfasalazine and budesonide and his molded goods inspector trimmer and since has switched him from Enbrel [...] Alk phos isoenz: liver fraction; followed by molded goods inspector trimmer He follows with his molded goods inspector trimmer for hi elev alk phos and AST and for bld with stools, Dr Brown: and states he started him on iron supplement States Dr. Brown prescribed metronidazole, for reported diarrhea. States felt it made a difference. States he gave him enemas and told that is for his ulcerative colitis and prescr. sulfasalazine. In 2019, has also followed with his molded goods inspector trimmer for blood with stools, and had flex sig and told he was inflamed from his Ulcerative colitis. [facility] had colonosc and EGD in 2018 and [...] systems reviewed and are negative DXA Model: WeComics W [id number] SITE SCANNED: Lumbar spine and left hip [...] were all normal. He follows with his molded goods inspector trimmer for his ulcerative colitis and is on sulfasalazine. He was told by his molded goods inspector trimmer to avoid sun exposure due to this med, had skin itching last summer. He had evaluation for elevated AST and alk phos. Alk phos has improved and AST has been borderline elevated. I have advised him to f/u with his molded goods inspector trimmer for his elevated alk phos (liver fraction) States his molded goods inspector trimmer did an US of his liver twice and was told was normal. He denies any alcohol consumption or acetaminophens. His isoenzyme indicated predom. of liver origin. The patient reports that his molded goods inspector trimmer completed evaluation and told his liver is fine. His liver US was unremarkable . His anemia has resolved since his UC has been controlled. States saw his molded goods inspector trimmer, Dr. Lebron, recently and states told him [...] and denies hematuria or dysuria. DXA Model: WeComics W [id number] SITE SCANNED: Lumbar spine and left hip [...] states not bad . has seen a director music in the past, in [place], Dr. Whitfield. States used to be on [...] 500mg q 6hrs. Reports benefit and his molded goods inspector trimmer took him off the iron supplement as [...] Dactylitis: no H/o precedent/frequent infection(s): as above Enthesopathy/[place]'s/heel/plantar tenderness: no Skin thickening, psoriasis, photosensitivity, purpura: no Nail changes: no Alpecia, patchy: no; has MPB Eye inflammation: no SICCA: no Oral/nasal/genital ulcers: no GI problems-diarrhea/bleeding/IBD/Gluten intolerence/Dysphagia: as above Raynaud's phenomenon/digital ulcers: no Organ inv-Serositis: no Lung disease/ILD: no Myopathy/proximal muscle weakness: no Abnormal Urine or urethritis: no Renal disease: no GARAGE MANAGER/PNS disease: no and denies MS HEME-Cytopenias/LAD/Clots: iron [...] Marital Status: Single denies children 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 Lackey Smoking: quit 2012 Alcohol as above IVDU: denies Industrial toxic exposures: denies FAMILY HISTORY: No family history on file. suspects his mother may have had RA Mother: CAD, CABG, COPD/emphysemia Father: passed from [facility] bother were smokers PERTINENT TESTS: Component Latest [...] Abs Lymph 1.00 - 4.00 k/uL 3.02 Lycoming% 9.7 Abs Lycoming 0.00 - 0.86 k/uL 0.79 Eosin% 0.0 [...] Negative Negative Ketones, Urine Negative Negative Specific [place], Ur 1.005 - 1.030 1.008 Hemoglobin/Blood,Ur Negative 3+ (A) pH, Urine 4.5 - 8.0 6.0 Protein, Urine Negative mg/dL Negative Urobilinogen Normal Normal Nitrites Negative Negative Leukest Negative Negative Comments SEE COMMENT Urine Adan Comment SEE COMMENT WBC, Urine 0 - 5 /HPF 0-5 RBC, Urine 0 - 3 /HPF >25 (A) Sm Antibody <1.0 AI <0.2 BALLISTIC EXPERT Antibody <1.0 AI 1.2 (H) SSA Antibody <1.0 AI <0.2 SSB Antibody <1.0 AI <0.2 Centromere Ab <1.0 AI <0.2 Scleroderma Ab, IgG <1.0 AI <0.2 Milagro 1 Antibody <1.0 AI <0.2 Ribosomal BALLISTIC EXPERT <1.0 AI <0.2 Chromatin Antibody <1.0 AI [...] <12 Sm Antibody <1.0 AI <0.2 Ribosomal BALLISTIC EXPERT <1.0 AI <0.2 Chromatin Antibody <1.0 AI <0.2 SSA Antibody <1.0 AI <0.2 SSB Antibody <1.0 AI <0.2 BALLISTIC EXPERT Antibody <1.0 AI 1.2 Scleroderma Ab, IgG [...] FINDINGS CONSISTENT WITH CHRONIC SEVERE RHEUMATOID ARTHRITIS. Electronic Intelligence Officer: KETTY Transcribe Date/Time: Aug 29 2015 12:56P ... Last XR Ankle - Impression Only XR ANKLE GENERAL 3V AP/LAT/OBL LT Exam End: 02/20/2021 8:42 AM (Final result) Impression: IMPRESSION: Arthritic changes demonstrating interval progression in this patient with known rheumatoid arthritis. Electronic Intelligence Officer: CODY Transcribe Date/Time: Feb 20 2021 9:52A [...] developed and its performance characteristics determined by [facility] [place] ([facility]). It has not been cleared or approved by the FDA. [facility] is regulated under CLIA as qualified [...] 147 53 - 334 mg/dL Final MPA [place], Serum Date Value Ref Range Status 08/19/2018 1,020 534 - 1,267 mg/dL Final MPA Lambda, Serum Date Value Ref Range Status 08/19/2018 551 253 - 653 mg/dL Final MPA [place]/Lambda Ratio Date Value Ref Range Status 08/19/2018 [...] , Gender: Male SCANNER INFORMATION: DXA Model: WeComics W [id number] SITE SCANNED: Lumbar spine and left hip [...] machine for accurate comparison. FOR MORE INFORMATION: [facility] Osteoporosis and Metabolic Bone Disease: www.ccf.org/arthritis/osteo National Osteoporosis Foundation: www.nof.org International Society of Clinical Densitometry www.iscd.org Electronic Intelligence Officer: [id number] Transcribe Date/Time: Sep 23 2022 10:28A Dictated [...] involving multiple sites with positive rheumatoid factor ([facility]) Z79.899 On sulfasalazine therapy K51.00 Ulcerative pancolitis ([facility]) Comment: On SSZ and Entyvio, managed by [...] in patient's severe chronic Rheumatoid Arthritis. His molded goods inspector trimmer has switched him to Humira as he [...] to receive intermittent steroid therapy from his molded goods inspector trimmer. Pharmacologic therapy is still indicated and recommended, [...] Also received labs per Primary care physician, Marine Electrician -The patient's molded goods inspector trimmer follows him for his UC, anemia and liver tests. He is on Entyvio and sulfasalazine per his Marine Electrician RA med: none from rheum, doing well on sulfasalazine, prescribed by GI (He was prev. on Enbrel 25 mg sq twice a week, or may switch to Humira if his molded goods inspector trimmer switched him to Humira TNF inhibitor therapy, [...] on sulfasalazine for his IBD per his molded goods inspector trimmer OP med: Received Reclast infusion, 5 mg IV on 05/09/2024 well tolerated Further infusions will be determined based on recheck DXA and CTX, or if on systemic steroids. As previously discussed, his OP med of choice is IV Reclast Oral bisphosphonate contraindicated due to his IBD and gastrointestinal disease. Osteoporosis was likely due to previous jail steroid therapy by other physicians over the [...] atypical and subtroch. fracture of femur with long filler cigar roller machine use of bisphosphonates/alendronate and anti-resorptive agents, there [...] wished to proceed. Previous orders -CONSULT TO BROWNELL OPERATOR -CONSULT TO PODIATRY Provided referral to OT for assistive devices, exercises to preserve left function Referral to concrete handler for foot/ankle deformities and callus care, inserts/braces/orthotics, [...] which included preparing to see the patient, [id number] patient care, completing clinical documentation, obtaining and/or [...] appropriate immunization recommended. -Continued follow up with molded goods inspector trimmer for IBD management and monitoring for liver [...] Fischer MD Jose L Lackey MD [address] [facility] [address] documented in this encounter [facility] 06-03-2024 Note Progress Note-Physic sumaya Patient: JAM TOSCANO Age: 59 years Sex: Male : 1965 Associated Diagnoses: None Author: Kody Ramos Jr., DO Postoperative Information Postoperative disposition: Postoperative disposition: Home. Optimetrix number: Optimetrix number [id number]. Anesthetic utilized: General. Physical Examination Vital Signs [...] Ambulatory Surgery Unit, and To home ). [facility] Comment on above: Result Comment: Elec tronically [...] unsweetened, w/added ascorbic acid 1 cup 0.5 [place] 1 cup 0.7 Vegetables Cooked Green beans 1 cup 4.0 Carrots 1/2 cup sliced 2.3 Peas 1 cup 8.8 Potato (baked, with skin) 1 medium potato 3.8 Raw [place] (with peel) 1 cucumber 1.5 Lettuce 1 [...] 8.7 Peanuts 1/2 cup 7.9 [facility] not included[facility] 06-03-2024 Note Colonoscopy Procedur e Report Patient: JAM TOSCANO Age: 59 years Sex: Male : 1965 Associated Diagnoses: None Author: Asim Jaquez MD Pre-Procedure Procedure Date 06/03/2024 10:42:00 . Procedure Type: Colonoscopy with removal of tumor(s), polyp(s), or other lesion(s) by cold snare technique. Procedure provider Performed by Asim Jaquez MD. Current history and physical Documented on chart. Colonoscopy ([id number]) on 02/26/2024 at 58 Years. Colonoscopy ([id number]) on 03/23/2023 at 57 Years. Cystoscopy ([id number]) on 02/04/2021 at 55 Years. Colonoscopy ([id number]). right hip replacement (986571582). replacement on both knees (865408541). Hernia repair (87881291).. Past Medical History Resolved Extreme obesity ([id number]) : Resolved. Ulcerative colitis (185837501): Resolved.. Family History . Procedure History Colonoscopy ([id number]) on 02/26/2024 at 58 Years. Colonoscopy ([id number]) on 03/23/2023 at 57 Years. Cystoscopy ([id number]) on 02/04/2021 at 55 Years. Colonoscopy (349423935). right hip replacement (627334431). replacement on both knees (698874392). Hernia repair (91055269).. Colorectal neoplasm risk assessment High risk Previous [...] (Inserted Image. Perla (more content not included)... [facility] Comment on above: Other Comment: Sheila trinh Attachment - attachment storage system not supported [id number] Can be viewed in source systemMisschanning home Attachment - attachment storage system not supported [id number] Can be viewed in source systemMisschanning home Attachment - attachment storage system not supported [id number] Can be viewed in source systemMisschanning home Attachment - attachment storage system not supported [id number] Can be viewed in source systemMisschanning home Attachment - attachment storage system not supported [id number] Can be viewed in source systemMisschanning home Attachment - attachment storage system not supported 6622383 Can be viewed in source systemMisschanning home Attachment - attachment storage system not supported 2670729 Can be viewed in source systemMisschanning home Attachment - attachment storage system not supported 1916088 Can be viewed in source systemMisschanning home Attachment - attachment storage system not supported [id number] Can be viewed in source systemMisschanning home Attachment - attachment storage system not supported 0749289 Can be viewed in source systemMisschanning home Attachment - attachment storage system not supported 6327029 Can be viewed in source systemMisschanning home Attachment - attachment storage system not supported [id number] Can be viewed in source systemMisschanning home Attachment - attachment storage system not supported [id number] Can be viewed in source systemMisschanning home Attachment - attachment storage system not supported [id number] Can be viewed in source system 06-03-2024 [...] in GI clinic in 1-2 after discharge [facility] Comment on above: Other Comment: Sheila trinh Attachment - attachment storage system not supported 9641539 Can be viewed in source systemMissing Attachment - attachment storage system not supported 8408829 Can be viewed in source systemMissing Attachment - attachment storage system not supported 5410404 Can be viewed in source systemMisschanning home Attachment - attachment storage system not supported 9398713 Can be viewed in source systemMisschanning home Attachment - attachment storage system not supported 8129449 Can be viewed in source systemMisschanning home Attachment - attachment storage system not supported 1421262 Can be viewed in source systemMisschanning home Attachment - attachment storage system not supported 3648230 Can be viewed in source systemMisschanning home Attachment - attachment storage system not supported [id number] Can be viewed in source systemM[facility] Attachment - attachment storage system not supported [id number] Can be viewed in source system 06-03-2024 [...] All Problems Acute diarrhea / SNOMED CT 3100498981 / Confirmed Adenomatous colon polyp / SNOMED CT 0781208423 / Confirmed Bladder mass / SNOMED CT 3387941218 / Confirmed Bladder stone / SNOMED CT 624020867 / Confirmed BPH with urinary obstruction / SNOMED CT 7779922454 / Confirmed Continuous severe abdominal pain / SNOMED CT 47257018 / Confirmed Gross hematuria / SNOMED CT 796716285 / Confirmed Heartburn / SNOMED CT 95178119 / Confirmed Hematochezia / SNOMED CT 0577532085 / Confirmed History of colon polyps / SNOMED CT 6573414923 / Confirmed Hyperlipemia / SNOMED CT 47175309 / Confirmed Incomplete bladder emptying / SNOMED CT 855915059 / Confirmed Kidney stones / SNOMED CT 302961726 / Confirmed Prostate calculus / SNOMED CT 098116270 / Confirmed Rectal bleed / SNOMED CT 830554049 / Confirmed Ulcerative colitis, universal / SNOMED CT 6120849656 / Confirmed Hazel ulcerative colitis / SNOMED CT 7983744497 / Confirmed Urethral stone / SNOMED CT 75947804 / Confirmed Resolved: Extreme obesity / SNOMED CT [id number] Resolved: Ulcerative colitis / SNOMED CT 742889133 Canceled: Ulcerative colitis / SNOMED CT 713399121 Histories Past Medical History: Resolved Extreme obesity ([id number]) : Resolved. Ulcerative colitis (756512696): Resolved. Procedure history: Colonoscopy ([id number]) on 02/26/2024 at 58 Years. Colonoscopy ([id number]) on 03/23/2023 at 57 Years. Cystoscopy ([id number]) on 02/04/2021 at 55 Years. Colonoscopy ([id number]). right hip replacement (144451432). replacement on both knees (988585097). Hernia repair (87795418). Social History Social & Psychosocial Habits Alcohol [...] quit more Smokele (more content not included)... [facility] Comment on above: Result Comment: Elec tronically Signed By: Kody Ramos Jr., DO.br\Date and Time Signed: 06/03/24 09:03 EDT 05-09-2024 Note HNO ID: [id number] Author: TERESA FALLON RN Service: ? Author [...] 5. Taking antibiotics for current infection? No [facility] 05-09-2024 History of Present illness Narrative [...] current infection? No documented in this encounter [facility] 05-09-2024 Instructions Nidia Weston APRN.METER/RELAY CRAFTSMAN - 05/09/2024 9:45 AM EDT -PLEASE NOTE THAT WE REVIEW ALL YOUR TEST RESULTS AT YOUR NEXT FOLLOW UP VISIT WITH YOU. IF ANY ABNORMAL LAB REQUIRES SOONER ATTENTION, WE WILL CONTACT YOU. -If you have signed up on Ravtit, we will release your test results through adBrite. I wish you the best of health [...] and sulfasalazine, but discuss first with your molded goods inspector trimmer. Supplements recommended Vitamin B12: 500 to 1000 [...] track your nutrition and calcium intake on www.Southern Air.Preferred Commerce This provides macro and micronutrient intake and requirements. - You can track your calcium intake on Infinite Enzymesometer.Preferred Commerce or any other calcium tracker of your [...] now for a cost, such as at www.ERN. -When eating a whole food plant based [...] that features the Whole Plant Based diet, [place] over knives (see video online and visit website). Another movie that was recently released is: Eating You Alive (you can find it at Scout) and The [employer] movie Dr. Fauzia Ansari is a [facility] physician who is an expert in Whole Plant based diet. His website is Zeuss. His research highlights the benefits of the Whole food plant based diet in reversing and preventing heart disease. Mrs. Ansari (his ) has a cookbook with many recipes on whole plant based food: The Prevent and Reverse Heart Disease cookbook. You can also consider reading his son, Eze Ansari's book: The Engine 2 cookbook Eze is a retired computer information systems instructor who has helped many people get healthier [...] multiple free videos and YouTube, for example: https://youtu.be/sfyBkbsD8m1 , https://youtu.be/DeSCEfxet3k He has written multiple books, including Power [...] heart disease, acne, and other, his website: www.debra.Preferred Commerce Dr. Yayo Allred is a renowned scientist immunology, who has studied and researched the benefits of the Whole plant based diet. He has also researched the adverse effects of animal proteins on health. He presents many of his research findings in his book The [place] study. Dr. Gerber Becker has completed many research trials proving the reversal of diseases, such as heart disease and early prostate cancer, with healthy lifestyle and the Whole Plant based diet. Dr. Gerber Becker website is: www.carmenU4EA Networks.Preferred Commerce His new book: Undo It, has evidence based information and guide to following this healthy lifestyle. Dr. Cody Dillon has dedicated a website and additional time to reviewing all food related articles and research and presents them in his power point presentation and on his website at: nutritionfacts.org which is all free. Dr. Dillon has multiple free videos and YouTube, for example https://The Health Wagon.FlowPay/aSgNkhgVtks and https://The Health Wagon.FlowPay/lXXXygDRyBU. He has written multiple books including: How Not To and How Not To Diet He is now working on his next book: How Not To Age Dr. Danitza Dash (from the [facility]), has articles on the following website: Fighters.Preferred Commerce Also, you could find additional information on practical to follow recipes by reading or watching online and YouTube such as: Mill Work AJ, Cooking With Plants, The Vegan Corner (recipes from an [place] [employer] Work), The Whole Foods Plant Based Cooking Show and visiting the provided websites for additional information on the whole plant based benefit and cooking recipes. You can also consider watching the vlogs of some of the plant based Athletes such as Fausto Ewing Derek on [employer] Nutrition. Dr. Maryan Holguin (a psychiatrist who [...] - Gentle Yoga Anyone Can Do Anywhere www.Sanghvi/yoga Also on youtube: yoga with Karlie 3- [...] or a higher dose. Raw: Garlic, Cilantro, [place] nuts, Pumpkin seeds, [place] seeds and Flax seed powder have been reported to help with certain metal detoxification such as mercury. [place]-3 plant based rich foods are good anti-inflammatory [...] the Whole Plant Based Diet, by watching [place] over [employer] movie and then review website. There are many other resources and educational information on the Whole plant based diet on the Internet and documentaries. There are other resources for wellness that you can also benefit from, such as the [facility] Wellness website, [facility], avoninic.org and includes Plant based and Mediterranean diet, yoga and meditation. Please avoid all dairy products. You could use non-dairy milk such as Flax milk, Cashew milk, [place] milk, Rice milk, Oat milk or Hemp [...] Osteoporosis Foundation) http://www.osteo.org/osteolinks.asp National Institutes of Health: 0-453-515-BONE The Calcium Information Center: -Non-Dairy, Plant based Milk, can contain in1 glass up to 450 mg of calcium (300 to 450 mg) Exampled include Oat Milk, Flax Milk, [place] Milk, Cashew Milk, Soy Milk, Peas Milk general health and well being Examples of Food Sources of Calcium from NIH Food Milligrams (mg) per serving Percent DV* Soymilk, calcium-fortified, 8 ounces 299 30 [place] juice, calcium-fortified, 6 ounces 261 26 Tofu, firm, made with calcium sulfate, cup* 253 25 Tofu, soft, made with calcium sulfate, cup* 138 14 Gjazj-if-fhi cereal, calcium-fortified, 1 cup 100-1,000 10-100 Turnip greens, fresh, boiled, cup 99 10 Kale, raw, chopped, 1 cup 100 10 Kale, fresh, cooked, 1 cup 94 9 Micronesian cabbage, bok marin, raw, shredded, 1 cup 74 7 Bread, white, 1 slice 73 7 Tortilla, corn, eeose-cm-rzwn/marshall, one 6 diameter 46 5 Tortilla, flour, ttovj-zp-ttys/marshall, one 6 diameter 32 3 Bread, whole-wheat, [...] daily with a meal; Certain patients require 3131-6414 iu daily and in patients deficient in [...] bones. Studies show approximately 50% of [place] men and women are vitamin D deficient [...] is/osteo/info.htm http://ods.od.nih.gov/factsheets/vitam ind.asp National Institutes of Health: 3-590-549-BONE The Calcium Information Center: Review of Osteoporosis [...] atypical and subtroch. fracture of femur with jail use of bisphosphonates/alendronate and anti-resorptive agents, there [...] and answer all OP questions. At the [facility], we work as a team for your care, along with Nurse Practitioners, Physician Assistants, Nurses and Medical Assistants. It is a privilege and honor to serve you. Thank you for choosing The [facility] for your healthcare. Sincerely, Nidia Weston APRN.METER/RELAY CRAFTSMAN documented in this encounter [facility] 05-09-2024 History of Present illness Narrative [...] in patient's severe chronic Rheumatoid Arthritis. His molded goods inspector trimmer has switched him to Humira as he [...] IBD and intermittent steroid therapy from his molded goods inspector trimmer. Pharmacologic therapy is still indicated and recommended, [...] which included preparing to see the patient, hbqy-xv-jjdd patient care, completing clinical documentation, obtaining and/or [...] the care of your patient. Nidia Weston APRN.METER/RELAY CRAFTSMAN cc Jose L Lackey MD, MD Patient Instructions -PLEASE NOTE THAT WE REVIEW ALL YOUR TEST RESULTS AT YOUR NEXT FOLLOW UP VISIT WITH YOU. IF ANY ABNORMAL LAB REQUIRES SOONER ATTENTION, WE WILL CONTACT YOU. -If you have signed up on adBrite, we will release your test results through adBrite. I wish you the best of health [...] and sulfasalazine, but discuss first with your molded goods inspector trimmer. Supplements recommended Vitamin B12: 500 to 1000 [...] track your nutrition and calcium intake on www.Southern Air.Preferred Commerce This provides macro and micronutrient intake and requirements. - You can track your calcium intake on TwitJump or any other calcium tracker of your [...] now for a cost, such as at www.ERN. -When eating a whole food plant based [...] track your nutrition and calcium intake on www.Infinite Enzymesometer.Preferred Commerce This provides macro and micronutrient intake and [...] that features the Whole Plant Based diet, [place] over knives (see video online and visit website). Another movie that was recently released is: Eating You Alive (you can find it at Scout) and The Game Changers movie Dr. Fauzia Ansari is a [facility] physician who is an expert in Whole Plant based diet. His website is Zeuss. His research highlights the benefits of the Whole food plant based diet in reversing and preventing heart disease. Mrs. Ansari (his ) has a cookbook with many recipes on whole plant based food: The Prevent and Reverse Heart Disease cookbook. You can also consider reading his son, Eze Ansari's book: The Engine 2 cookbook Eze is a retired computer information systems instructor who has helped many people get healthier [...] multiple free videos and YouTube, for example: https://youtu.be/lxkKeghC9y1 , https://youtu.be/IwHJWttzn9a He has written multiple books, including Power [...] heart disease, acne, and other, his website: www.debra.Preferred Commerce Dr. Yayo Allred is a renowned scientist immunology, who has studied and researched the benefits of the Whole plant based diet. He has also researched the adverse effects of animal proteins on health. He presents many of his research findings in his book The [place] study. Dr. Gerber Becker has completed many research trials proving the reversal of diseases, such as heart disease and early prostate cancer, with healthy lifestyle and the Whole Plant based diet. Dr. Gerber Becker website is: www.dagoberto.Preferred Commerce His new book: Undo It, has evidence based information and guide to following this healthy lifestyle. Dr. Cody Dillon has dedicated a website and additional time to reviewing all food related articles and research and presents them in his power point presentation and on his website at: nutritionfacts.org which is all free. Dr. Dillon has multiple free videos and YouTube, for example https://The Health Wagon.FlowPay/aSgNkhgVtks and https://youVidly.be/lXXXygDRyBU. He has written multiple books including: How Not To and How Not To Diet He is now working on his next book: How Not To Age Dr. Danitza Dash (from the [facility]), has articles on the following website: 121nexus Also, you could find additional information on practical to follow recipes by reading or watching online and YouTube such as: Mill Work AJ, Cooking With Plants, The Vegan Corner (recipes from an [place] [employer] Work), The Whole Foods Plant Based Cooking Show and visiting the provided websites for additional information on the whole plant based benefit and cooking recipes. You can also consider watching the vlogs of some of the plant based Athletes such as Fausto Ewing Derek on [employer]. Dr. Maryan Holguin (a psychiatrist who suffered [...] - Gentle Yoga Anyone Can Do Anywhere www.Sanghvi/yoga Also on youtube: yoga with Karlie 3- [...] or a higher dose. Raw: Garlic, Cilantro, [place] nuts, Pumpkin seeds, [place] seeds and Flax seed powder have been reported to help with certain metal detoxification such as mercury. [place]-3 plant based rich foods are good anti-inflammatory [...] the Whole Plant Based Diet, by watching [place] over Knives movie and then review website. There are many other resources and educational information on the Whole plant based diet on the Internet and documentaries. There are other resources for wellness that you can also benefit from, such as the [facility] Wellness website, [facility]org and includes Plant based and Mediterranean diet, yoga and meditation. Please avoid all dairy products. You could use non-dairy milk such as Flax milk, Cashew milk, [place] milk, Rice milk, Oat milk or Hemp [...] Osteoporosis Foundation) http://www.osteo.org/osteolinks.asp National Institutes of Health: 0-702-300-BONE The Calcium Information [place]: -Non-Dairy, Plant based Milk, can contain in1 glass up to 450 mg of calcium (300 to 450 mg) Exampled include Oat Milk, Flax Milk, [place] Milk, Cashew Milk, Soy Milk, Peas Milk general health and well being Examples of Food Sources of Calcium from [facility] Food Milligrams (mg) per serving Percent DV* Soymilk, calcium-fortified, 8 ounces 299 30 [place] juice, calcium-fortified, 6 ounces 261 26 Tofu, firm, made with calcium sulfate, cup* 253 25 Tofu, soft, made with calcium sulfate, cup* 138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 AT YOUR NEXT FOLLOW UP VISIT WITH YOU. IF ANY ABNORMAL LAB REQUIRES SOONER ATTENTION, WE WILL CONTACT YOU. -If you have signed up on adBrite, we will release your test results through adBrite. I wish you the best of health [...] and sulfasalazine, but discuss first with your molded goods inspector trimmer. Supplements recommended Vitamin B12: 500 to 1000 [...] track your nutrition and calcium intake on www.TwitJump This provides macro and micronutrient intake and requirements. - You can track your calcium intake on TwitJump or any other calcium tracker of your [...] now for a cost, such as at www.ERN. -When eating a whole food plant based [...] track your nutrition and calcium intake on www.Southern Air.Preferred Commerce This provides macro and micronutrient intake and [...] that features the Whole Plant Based diet, [place] over knives (see video online and visit website). Another movie that was recently released is: Eating You Alive (you can find it at Scout) and The Game Changers movie Dr. Fauzia Ansari is a [facility] physician who is an expert in Whole Plant based diet. His website is Zeuss. His research highlights the benefits of the Whole food plant based diet in reversing and preventing heart disease. Mrs. Ansari (his ) has a cookbook with many recipes on whole plant based food: The Prevent and Reverse Heart Disease cookbook. You can also consider reading his son, Eze Ansari's book: The Engine 2 cookbook Eze is a retired computer information systems instructor who has helped many people get healthier by following the whole food plant based diet. Dr. Rock Velazco, has a website and free angélica to help get started on a whole plant based diet, at www.pcrSnowflake Youth Foundation.org and you can log on for free for his 21-Day Kickstart with meals and recipes to follow for 21 days. There is also a free angélica for that. He has multiple free videos and YouTube, for example: https://youPawngou.be/[email or web address] , https://youtu.be/FeWBYvusx0s He has written multiple books, including Mobiveil for the Brain, The Cheese Trap, Dr. Rock Velazco's Program for Reversing Diabetes, Your Body in Balance Dr. Anthony Carlson has shown the benefit of a starch based whole food plant based diet to his Rheumatoid Arthritis patients, as well as patient with diabetes II, hypertension, obesity, multiple sclerosis, heart disease, acne, and other, his website: www.Perillon Software.Preferred Commerce Dr. Yayo Allred is a renowned scientist immunology, who has studied and researched the benefits of the Whole plant based diet. He has also researched the adverse effects of animal proteins on health. He presents many of his research findings in his book The [place] study. Dr. Gerber Becker has completed many research trials proving the reversal of diseases, such as heart disease and early prostate cancer, with healthy lifestyle and the Whole Plant based diet. Dr. Gerber Becker website is: www.carmenU4EA Networks.Preferred Commerce His new book: Undo It, has evidence [...] To Age Dr. Danitza Dash (from the [facility]), has articles on the following website: Fighters.Preferred Commerce Also, you could find additional information on practical to follow recipes by reading or watching online and YouTube such as: Chef BELLE, Cooking With Plants, The Vegan Corner (recipes from an [employer]), The Whole Foods Plant Based Cooking Show and visiting the provided websites for additional information on the whole plant based benefit and cooking recipes. You can also consider watching the vlogs of some of the plant based Athletes such as Graeme Kamara, Agustin Lundy on [employer]. Dr. Maryan Holguin (a psychiatrist who suffered [...] - Gentle Yoga Anyone Can Do Anywhere www.[employer].Preferred Commerce/yoga Also on youtube: yoga with Karlie 3- [...] or a higher dose. Raw: Garlic, Cilantro, [place] nuts, Pumpkin seeds, [place] seeds and Flax seed powder have been reported to help with certain metal detoxification such as mercury. [place]-3 plant based rich foods are good anti-inflammatory [...] the Whole Plant Based Diet, by watching [place] over BoostSuite movie and then review website. There are many other resources and educational information on the Whole plant based diet on the Internet and documentaries. There are other resources for wellness that you can also benefit from, such as the [facility] Wellness website, [facility], avoninic.org and includes Plant based and Mediterranean diet, yoga and meditation. Please avoid all dairy products. You could use non-dairy milk such as Flax milk, Cashew milk, [place] milk, Rice milk, Oat milk or Hemp [...] following resources: www.nof.org (National Osteoporosis Foundation) http://www.osteo.org/osteolinks.asp [facility]: 4-448-475-BONE [facility] Calcium Information [place]: -Non-Dairy, Plant based Milk, can contain in1 glass up to 450 mg of calcium (300 to 450 mg) Exampled include Oat Milk, Flax Milk, Fishkill Milk, Cashew Milk, Soy Milk, Peas Milk general health and well being Examples of Food Sources of Calcium from [facility] Food Milligrams (mg) per serving Percent DV* Soymilk, calcium-fortified, 8 ounces 299 30 [place] juice, calcium-fortified, 6 ounces 261 26 Tofu, firm, made with calcium sulfate, cup* 253 25 Tofu, soft, made with calcium sulfate, cup* 138 14 Bpqtg-ab-fmn cereal, calcium-fortified, 1 cup 100-1,000 10-100 Turnip greens, fresh, boiled, cup 99 10 Kale, raw, chopped, 1 cup 100 10 Kale, fresh, cooked, 1 cup 94 9 Micronesian cabbage, bok marin, raw, shredded, 1 cup 74 7 Bread, white, 1 slice 73 7 Tortilla, corn, jucxq-tk-gaas/marshall, one 6 diameter 46 5 Tortilla, flour, yweax-nj-rqta/marshall, one 6 diameter 32 3 Bread, whole-wheat, [...] could acces this information online at: http://ods.od.nih.gov/factsheets/Calci -[facility]/ Vitamin D: Vitamin D3= cholecalciferol, available over the counter. Dose recommended 800 to 1000 iu daily with a meal; Certain patients require 9668-0276 iu daily and in patients deficient in [...] bones. Studies show approximately 50% of [place] men and women are vitamin D deficient [...] national osteoporosis foundation) http://www.[facility].org/arthgabriella is/osteo/info.htm http://ods.od.nih.gov/factsheets/vitam ind.asp [facility] [facility]: 4-509-824-BONE [facility] Calcium Information [place]: At the [facility], we work as a team for your care, along with Nurse Practitioners, Physician Assistants, Nurses and Medical Assistants. It is a privilege and honor to serve you. Thank you for choosing The [facility] for your healthcare. Sincerely, Nidia Weston APRN.METER/RELAY CRAFTSMAN documented in this encounter [facility] 05-04-2023 History of Present illness Narrative [...] was there Goes back fitting denture 09/09 [facility] [phone] GI - colitis 03/23 Had colonoscopy - [...] in patient's severe chronic Rheumatoid Arthritis. His molded goods inspector trimmer has switched him to Humira as he [...] IBD and intermittent steroid therapy from his molded goods inspector trimmer. Pharmacologic therapy is still indicated and recommended, [...] if necessary, CC, NOF and ISCD and [facility]. PLAN: [facility] on 05/04/23 VITAMIN D 25 HYDROXY RENAL FUNCTION PANEL MONOCLONAL PROT UR W/INTERP Labs prior to next visit Reclast - You are on entyvio and sulfasalazine for your Ulcerative Colitis. These are also treating your Rheumatoid Arthritis. During infections you will need to hold the entyvio and sulfasalazine, but discuss first with your molded goods inspector trimmer. Supplements recommended Vitamin B12: 500 to 1000 [...] in the office. This medication is given long filler cigar roller machine, indefinitely. Prolia should not be discontinued without [...] looked into transition therapy. Recent study from [facility] Slim et al, 04/11/2020, reported one infusion [...] initiated in patients who have had an IA or stroke in the preceding year. This [...] atypical and subtroch. fracture of femur with jail use of bisphosphonates/alendronate and anti-resorptive agents, there [...] the care of your patient. Nidia Weston APRN.[facility] cc Jose L Lackey MD, MD Patient Instructions -PLEASE NOTE THAT WE REVIEW ALL YOUR TEST RESULTS AT YOUR NEXT FOLLOW UP VISIT WITH YOU. IF ANY ABNORMAL LAB REQUIRES SOONER ATTENTION, WE WILL CONTACT YOU. -If you have signed up on adBrite, we will release your test results through adBrite. I wish you the best of health [...] and sulfasalazine, but discuss first with your molded goods inspector trimmer. Supplements recommended Vitamin B12: 500 to 1000 [...] track your nutrition and calcium intake on www.TwitJump This provides macro and micronutrient intake and requirements. - You can track your calcium intake on TwitJump or any other calcium tracker of your [...] now for a cost, such as at www.ERN. -When eating a whole food plant based [...] track your nutrition and calcium intake on www.Southern Air.Preferred Commerce This provides macro and micronutrient intake and [...] that features the Whole Plant Based diet, [place] over knives (see video online and visit website). Another movie that was recently released is: Eating You Alive (you can find it at Scout) and The [employer] movie Dr. Fauzia Ansari is a [facility] physician who is an expert in Whole Plant based diet. His website is Zeuss. His research highlights the benefits of the Whole food plant based diet in reversing and preventing heart disease. Mrs. Ansari (his ) has a cookbook with many recipes on whole plant based food: The Prevent and Reverse Heart Disease cookbook. You can also consider reading his son, Eze Ansari's book: The Engine 2 cookbook Eze is a retired computer information systems instructor who has helped many people get healthier [...] multiple free videos and YouTube, for example: https://youtu.FlowPay/kwgIujuC3m6 , https://The Health Wagon.be/VyZOEeeyo6a He has written multiple books, including Power [...] heart disease, acne, and other, his website: www.debra.Preferred Commerce Dr. Yayo Allred is a renowned scientist immunology, who has studied and researched the benefits of the Whole plant based diet. He has also researched the adverse effects of animal proteins on health. He presents many of his research findings in his book The [place] study. Dr. Gerber Becker has completed many research trials proving the reversal of diseases, such as heart disease and early prostate cancer, with healthy lifestyle and the Whole Plant based diet. Dr. Gerber Becker website is: www.carmenU4EA Networks.Preferred Commerce His new book: Undo It, has evidence based information and guide to following this healthy lifestyle. Dr. Cody Dillon has dedicated a website and additional time to reviewing all food related articles and research and presents them in his power point presentation and on his website at: nutritionfacts.org which is all free. Dr. Dillon has multiple free videos and YouTube, for example https://The Health Wagon.FlowPay/aSgNkhgVtks and https://The Health Wagon.FlowPay/lXXXygDRyBU. He has written multiple books including: How Not To and How Not To Diet He is now working on his next book: How Not To Age Dr. Danitza Dash (from the [facility]), has articles on the following website: Fighters.Preferred Commerce Also, you could find additional information on practical to follow recipes by reading or watching online and YouTube such as: Mill Work AJ, Cooking With Plants, The Vegan Corner (recipes from an [employer]), The Whole Foods Plant Based Cooking Show and visiting the provided websites for additional information on the whole plant based benefit and cooking recipes. You can also consider watching the vlogs of some of the plant based Athletes such as Graeme Kamara, Agustin Lundy on [employer] Nutrition. Dr. Maryan Holguin (a psychiatrist who [...] - Gentle Yoga Anyone Can Do Anywhere www.Sanghvi/yoga Also on youtube: yoga with Karlie 3- [...] or a higher dose. Raw: Garlic, Cilantro, [place] nuts, Pumpkin seeds, [place] seeds and Flax seed powder have been reported to help with certain metal detoxification such as mercury. [place]-3 plant based rich foods are good anti-inflammatory [...] the Whole Plant Based Diet, by watching [place] over BoostSuite movie and then review website. There are many other resources and educational information on the Whole plant based diet on the Internet and documentaries. There are other resources for wellness that you can also benefit from, such as the [facility] Wellness website, [facility], avoninic.org and includes Plant based and Mediterranean diet, yoga and meditation. Please avoid all dairy products. You could use non-dairy milk such as Flax milk, Cashew milk, [place] milk, Rice milk, Oat milk or Hemp [...] Osteoporosis Foundation) http://www.osteo.org/osteolinks.asp National Institutes of Health: 6-548-801-BONE The Calcium Information [place]: -Non-Dairy, Plant based Milk, can contain in1 glass up to 450 mg of calcium (300 to 450 mg) Exampled include Oat Milk, Flax Milk, Fishkill Milk, Cashew Milk, Soy Milk, Peas Milk general health and well being Examples of Food Sources of Calcium from [facility] Food Milligrams (mg) per serving Percent DV* Soymilk, calcium-fortified, 8 ounces 299 30 [place] juice, calcium-fortified, 6 ounces 261 26 Tofu, firm, made with calcium sulfate, cup* 253 25 Tofu, soft, made with calcium sulfate, cup* 138 14 Gdbar-xl-wut cereal, calcium-fortified, 1 cup 100-1,000 10-100 Turnip greens, fresh, boiled, cup 99 10 Kale, raw, chopped, 1 cup 100 10 Kale, fresh, cooked, 1 cup 94 9 Micronesian cabbage, bok marin, raw, shredded, 1 cup 74 7 Bread, white, 1 slice 73 7 Tortilla, corn, zomns-oj-cydy/marshall, one 6 diameter 46 5 Tortilla, flour, rjwtx-nf-thkk/marshall, one 6 diameter 32 3 Bread, whole-wheat, [...] daily with a meal; Certain patients require 6898-3461 iu daily and in patients deficient in [...] bones. Studies show approximately 50% of [place] men and women are vitamin D deficient [...] is/osteo/info.htm http://ods.od.nih.gov/factsheets/vitam ind.asp National Institutes of Health: 2-575-441-BONE The Calcium Information [place]: At the [facility], we work as a team for your care, along with Nurse Practitioners, Physician Assistants, Nurses and Medical Assistants. It is a privilege and honor to serve you. Thank you for choosing The [facility] for your healthcare. Sincerely, Nidia Weston APRN.METER/RELAY CRAFTSMAN PAST MEDICAL HISTORY Diagnosis Date Monoclonal gammopathy [...] in am, 3 noon, 2 pm), per molded goods inspector trimmer No current facility-administered medications for this visit. [...] developed and its performance characteristics determined by [facility] Laboratory Medicine [place] ([facility]). It has not been cleared or approved by the FDA. -[facility] is regulated under CLIA as qualified to [...] 147 53 - 334 mg/dL Final MPA Comanche, Serum Date Value Ref Range Status 08/19/2018 1,020 534 - 1,267 mg/dL Final MPA Lambda, Serum Date Value Ref Range Status 08/19/2018 551 253 - 653 mg/dL Final MPA [place]/Lambda Ratio Date Value Ref Range Status 08/19/2018 [...] , Gender: Male SCANNER INFORMATION: DXA Model: WeComics W [id number] SITE SCANNED: Lumbar spine and left hip [...] www.nof.org International Society of Clinical Densitometry www.iscd.org Electronic Intelligence Officer: [id number] Transcribe Date/Time: Sep 23 2022 10:28A Dictated by : DARRIAN DUBON MD This examination was interpreted and the report reviewed and electronically signed by: DARRIAN DUBON MD on Sep 28 2022 6:46PM EST documented in this encounter [facility] 03-02-2023 Instructions Nidia Weston APRN.JOSE - 03/02/2023 11:10 AM EDT -PLEASE NOTE THAT WE REVIEW ALL YOUR TEST RESULTS AT YOUR NEXT FOLLOW UP VISIT WITH YOU. IF ANY ABNORMAL LAB REQUIRES SOONER ATTENTION, WE WILL CONTACT YOU. -If you have signed up on Mswipe Technologieshart, we will release your test results through adBrite. I wish you the best of health [...] and sulfasalazine, but discuss first with your molded goods inspector trimmer. Supplements recommended Vitamin B12: 500 to 1000 [...] track your nutrition and calcium intake on www.Southern Air.Preferred Commerce This provides macro and micronutrient intake and requirements. - You can track your calcium intake on Infinite EnzymesometerShippo or any other calcium tracker of your [...] now for a cost, such as at www.ERN. -When eating a whole food plant based [...] that features the Whole Plant Based diet, [place] over knives (see video online and visit website). Another movie that was recently released is: Eating You Alive (you can find it at ContentRealtime.Preferred Commerce) and The Game Changers movie Dr. Fauzia Ansari is a [facility] physician who is an expert in Whole Plant based diet. His website is Zeuss. His research highlights the benefits of the Whole food plant based diet in reversing and preventing heart disease. Mrs. Ansari (his ) has a cookbook with many recipes on whole plant based food: The Prevent and Reverse Heart Disease cookbook. You can also consider reading his son, Eze Ansari's book: The Engine 2 cookbook Eze is a retired computer information systems instructor who has helped many people get healthier by following the whole food plant based diet. Dr. Rock Velazco, has a website and free angélica to help get started on a whole plant based diet, at www.BOLT Solutions.Fuzz and you can log on for free for his 21-Day Kickstart with meals and recipes to follow for 21 days. There is also a free angélica for that. He has multiple free videos and YouTube, for example: https://youPawngou.be/[email or web address] , https://[email or web address]/[email or web address] He has written multiple books, including Power [...] heart disease, acne, and other, his website: www.debra.Preferred Commerce Dr. Yayo Allred is a renowned scientist immunology, who has studied and researched the benefits of the Whole plant based diet. He has also researched the adverse effects of animal proteins on health. He presents many of his research findings in his book The [place] study. Dr. Gerber Becker has completed many research trials proving the reversal of diseases, such as heart disease and early prostate cancer, with healthy lifestyle and the Whole Plant based diet. Dr. Gerber Becker website is: www.carmenU4EA Networks.Preferred Commerce His new book: Undo It, has evidence based information and guide to following this healthy lifestyle. Dr. Cody Dillon has dedicated a website and additional time to reviewing all food related articles and research and presents them in his power point presentation and on his website at: nutritionfacts.org which is all free. Dr. Dillon has multiple free videos and YouTube, for example https://youPawngou.be/aSgNkhgVtks and https://youPawngou.be/[email or web address]. He has written multiple books including: How Not To and How Not To Diet He is now working on his next book: How Not To Age Dr. Danitza Dash (from the [facility]), has articles on the following website: 121nexus Also, you could find additional information on practical to follow recipes by reading or watching online and YouTube such as: Mill Work AJ, Cooking With Plants, The Vegan Corner (recipes from an [place] [employer] Work), The Whole Foods Plant Based Cooking Show and visiting the provided websites for additional information on the whole plant based benefit and cooking recipes. You can also consider watching the vlogs of some of the plant based Athletes such as Fausto Ewing Derek on [employer]. Dr. Maryan Holguin (a psychiatrist who suffered [...] - Gentle Yoga Anyone Can Do Anywhere www.InQ Biosciences.Preferred Commerce/yoga Also on youtube: yoga with Karlie 3- [...] or a higher dose. Raw: Garlic, Cilantro, [place] nuts, Pumpkin seeds, [place] seeds and Flax seed powder have been reported to help with certain metal detoxification such as mercury. [place]-3 plant based rich foods are good anti-inflammatory [...] the Whole Plant Based Diet, by watching [place] over Knives movie and then review website. There are many other resources and educational information on the Whole plant based diet on the Internet and documentaries. There are other resources for wellness that you can also benefit from, such as the [facility] Wellness website, [facility], avoninic.org and includes Plant based and Mediterranean diet, yoga and meditation. Please avoid all dairy products. You could use non-dairy milk such as Flax milk, Cashew milk, [place] milk, Rice milk, Oat milk or Hemp [...] following resources: www.nof.org (National Osteoporosis Foundation) http://www.osteo.org/osteolinks.asp [facility]: 6-088-584-BONE The Calcium Information [place]: -Non-Dairy, Plant based Milk, can contain in1 glass up to 450 mg of calcium (300 to 450 mg) Exampled include Oat Milk, Flax Milk, [place] Milk, Cashew Milk, Soy Milk, Peas Milk general health and well being Examples of Food Sources of Calcium from [facility] Food Milligrams (mg) per serving Percent DV* Soymilk, calcium-fortified, 8 ounces 299 30 [place] juice, calcium-fortified, 6 ounces 261 26 Tofu, firm, made with calcium sulfate, cup* 253 25 Tofu, soft, made with calcium sulfate, cup* 138 14 Wicoa-gv-bha cereal, calcium-fortified, 1 cup 100-1,000 10-100 Turnip greens, fresh, boiled, cup 99 10 Kale, raw, chopped, 1 cup 100 10 Kale, fresh, cooked, 1 cup 94 9 Micronesian cabbage, bok marin, raw, shredded, 1 cup 74 7 Bread, white, 1 slice 73 7 Tortilla, corn, cyeqh-fj-ieam/marshall, one 6 diameter 46 5 Tortilla, flour, zvywb-ly-cyuw/marshall, one 6 diameter 32 3 Bread, whole-wheat, [...] daily with a meal; Certain patients require 6977-8257 iu daily and in patients deficient in [...] bones. Studies show approximately 50% of [place] men and women are vitamin D deficient [...] national osteoporosis foundation) http://www.[facility].org/arthrit is/osteo/info.htm http://ods.od.nih.gov/factsheets/vitam ind.asp [facility]: 5-329-114-BONE The Calcium Information [place]: At the [facility], we work as a team for your care, along with Nurse Practitioners, Physician Assistants, Nurses and Medical Assistants. It is a privilege and honor to serve you. Thank you for choosing The [facility] for your healthcare. Sincerely, Nidia Weston APRN.JOSE documented in this encounter [facility] 03-02-2023 History of Present illness Narrative [...] in patient's severe chronic Rheumatoid Arthritis. His molded goods inspector trimmer has switched him to Humira as he [...] IBD and intermittent steroid therapy from his molded goods inspector trimmer. Pharmacologic therapy is still indicated and recommended, [...] if necessary, CC, NOF and ISCD and [facility]. PLAN: No orders found for this visit on 03/02/23. Please continue on yout Vitamin D 5000 international units once daily with meals and your multivitamin - You are on Humira and sulfasalazine for your Ulcerative Colitis. These are also treating your Rheumatoid Arthritis. During infections you will need to hold the Humira and sulfasalazine, but discuss first with your molded goods inspector trimmer. Supplements recommended Vitamin B12: 500 to 1000 [...] in the office. This medication is given long filler cigar roller machine, indefinitely. Prolia should not be discontinued without [...] looked into transition therapy. Recent study from [facility] Slim et al, 04/11/2020, reported one infusion [...] initiated in patients who have had an IA or stroke in the preceding year. This [...] atypical and subtroch. fracture of femur with long filler cigar roller machine use of bisphosphonates/alendronate and anti-resorptive agents, there [...] the care of your patient. Nidia Weston APRN.METER/RELAY CRAFTSMAN cc Jose L Lackey MD, MD Patient Instructions -PLEASE NOTE THAT WE REVIEW ALL YOUR TEST RESULTS AT YOUR NEXT FOLLOW UP VISIT WITH YOU. IF ANY ABNORMAL LAB REQUIRES SOONER ATTENTION, WE WILL CONTACT YOU. -If you have signed up on adBrite, we will release your test results through adBrite. I wish you the best of health [...] and sulfasalazine, but discuss first with your molded goods inspector trimmer. Supplements recommended Vitamin B12: 500 to 1000 [...] track your nutrition and calcium intake on www.TwitJump This provides macro and micronutrient intake and requirements. - You can track your calcium intake on TwitJump or any other calcium tracker of your [...] now for a cost, such as at www.ERN. -When eating a whole food plant based [...] track your nutrition and calcium intake on www.Infinite Enzymesometer.Preferred Commerce This provides macro and micronutrient intake and [...] that features the Whole Plant Based diet, [place] over knives (see video online and visit website). Another movie that was recently released is: Eating You Alive (you can find it at Scout) and The Game Changers movie Dr. Fauzia Ansari is a [facility] physician who is an expert in Whole Plant based diet. His website is Zeuss. His research highlights the benefits of the Whole food plant based diet in reversing and preventing heart disease. Mrs. Ansari (his ) has a cookbook with many recipes on whole plant based food: The Prevent and Reverse Heart Disease cookbook. You can also consider reading his son, Eze Ansari's book: The Engine 2 cookbook Eze is a retired computer information systems instructor who has helped many people get healthier by following the whole food plant based diet. Dr. Rock Velazco, has a website and free angélica to help get started on a whole plant based diet, at www.pcrSnowflake Youth Foundation.org and you can log on for free for his 21-Day Kickstart with meals and recipes to follow for 21 days. There is also a free angélica for that. He has multiple free videos and YouTube, for example: https://youtu.be/[email or web address] , https://youtu.be/AdXYLtfzt9u He has written multiple books, including Mobiveil for the Brain, The Cheese Trap, Dr. Rock Velazco's Program for Reversing Diabetes, Your Body in Balance Dr. Anthony Carlson has shown the benefit of a starch based whole food plant based diet to his Rheumatoid Arthritis patients, as well as patient with diabetes II, hypertension, obesity, multiple sclerosis, heart disease, acne, and other, his website: www.Perillon Software.Preferred Commerce Dr. Yayo Allred is a renowned scientist immunology, who has studied and researched the benefits of the Whole plant based diet. He has also researched the adverse effects of animal proteins on health. He presents many of his research findings in his book The [place] study. Dr. Gerber Becker has completed many research trials proving the reversal of diseases, such as heart disease and early prostate cancer, with healthy lifestyle and the Whole Plant based diet. Dr. Gerber Becker website is: www.carmenU4EA Networks.Preferred Commerce His new book: Undo It, has evidence [...] To Age Dr. Danitza Dash (from the [facility]), has articles on the following website: Fighters.Preferred Commerce Also, you could find additional information on practical to follow recipes by reading or watching online and YouTube such as: Chef BELLE, Cooking With Plants, The Vegan Corner (recipes from an [employer]), The Whole Foods Plant Based Cooking Show and visiting the provided websites for additional information on the whole plant based benefit and cooking recipes. You can also consider watching the vlogs of some of the plant based Athletes such as Fausto Ewing Derek on [employer]. Dr. Maryan Holguin (a psychiatrist who suffered [...] - Gentle Yoga Anyone Can Do Anywhere www.InQ Biosciences.Preferred Commerce/yoga Also on youtube: yoga with Karlie 3- [...] or a higher dose. Raw: Garlic, Cilantro, [place] nuts, Pumpkin seeds, [place] seeds and Flax seed powder have been reported to help with certain metal detoxification such as mercury. [place]-3 plant based rich foods are good anti-inflammatory [...] the Whole Plant Based Diet, by watching [place] over BoostSuite movie and then review website. There are many other resources and educational information on the Whole plant based diet on the Internet and documentaries. There are other resources for wellness that you can also benefit from, such as the [facility] Wellness website, [facility], avoninic.org and includes Plant based and Mediterranean diet, yoga and meditation. Please avoid all dairy products. You could use non-dairy milk such as Flax milk, Cashew milk, [place] milk, Rice milk, Oat milk or Hemp [...] following resources: www.nof.org (National Osteoporosis Foundation) http://www.osteo.org/osteolinks.asp [facility]: 3-601-081-BONE [facility] Calcium Information [place]: -Non-Dairy, Plant based Milk, can contain in1 glass up to 450 mg of calcium (300 to 450 mg) Exampled include Oat Milk, Flax Milk, [place] Milk, Cashew Milk, Soy Milk, Peas Milk general health and well being Examples of Food Sources of Calcium from [facility] Food Milligrams (mg) per serving Percent DV* Soymilk, calcium-fortified, 8 ounces 299 30 [place] juice, calcium-fortified, 6 ounces 261 26 Tofu, firm, made with calcium sulfate, cup* 253 25 Tofu, soft, made with calcium sulfate, cup* 138 14 Xefju-ey-hzg cereal, calcium-fortified, 1 cup 100-1,000 10-100 Turnip greens, fresh, boiled, cup 99 10 Kale, raw, chopped, 1 cup 100 10 Kale, fresh, cooked, 1 cup 94 9 Micronesian cabbage, bok marin, raw, shredded, 1 cup 74 7 Bread, white, 1 slice 73 7 Tortilla, corn, jqkyb-bp-wwth/marshall, one 6 diameter 46 5 Tortilla, flour, gmxas-aq-bzqn/marshall, one 6 diameter 32 3 Bread, whole-wheat, [...] could acces this information online at: http://ods.od.nih.gov/factsheets/Calci -[facility]/ Vitamin D: Vitamin D3= cholecalciferol, available over the counter. Dose recommended 800 to 1000 iu daily with a meal; Certain patients require 6159-3078 iu daily and in patients deficient in [...] bones. Studies show approximately 50% of [place] men and women are vitamin D deficient [...] national osteoporosis foundation) http://www.clevelandclinic.org/arthgabriella is/osteo/info.htm http://ods.od.nih.gov/factsheets/vitam ind.asp [facility]: 9-308-809-BONE [facility] Calcium Information Center: At the [facility], we work as a team for your care, along with Nurse Practitioners, Physician Assistants, Nurses and Medical Assistants. It is a privilege and honor to serve you. Thank you for choosing The [facility] for your healthcare. Sincerely, Nidia Weston APRN.METER/RELAY CRAFTSMAN PAST MEDICAL HISTORY Diagnosis Date Monoclonal gammopathy [...] mg subcutaneously every 2 weeks. Prescribed by Marine Electrician : Nel Lerbon MD Previously prescr. by Ronald Brown MD [...] in am, 3 noon, 2 pm), per molded goods inspector trimmer No current facility-administered medications for this visit. [...] developed and its performance characteristics determined by [facility]'s [facility] Medicine [place] ([facility]). It has not been cleared or approved by the FDA. -[facility] is regulated under CLIA as qualified to [...] 147 53 - 334 mg/dL Final MPA [place], Serum Date Value Ref Range Status 08/19/2018 1,020 534 - 1,267 mg/dL Final MPA Lambda, Serum Date Value Ref Range Status 08/19/2018 551 253 - 653 mg/dL Final MPA [place]/Lambda Ratio Date Value Ref Range Status 08/19/2018 [...] , Gender: Male SCANNER INFORMATION: DXA Model: WeComics [id number] SITE SCANNED: Lumbar spine and left hip [...] machine for accurate comparison. FOR MORE INFORMATION: [facility] Osteoporosis and Metabolic Bone Disease: www.ccf.org/arthritis/osteo National Osteoporosis Foundation: www.nof.org International Society of Clinical Densitometry www.iscd.org Electronic Intelligence Officer: [id number] Transcribe Date/Time: Sep 23 2022 10:28A Dictated by : DARRIAN DUBON MD This examination was interpreted and the report reviewed and electronically signed by: DARRIAN DUBON MD on Sep 28 2022 6:46PM EST documented in this encounter [facility] 01-15-2023 Miscellaneous Notes Lm regarding results and recommendations. Please call patient Normal vit d Please continue current dose Received outside lab results from Zbigniew Huertaus ordered by Nidia Weston CNP -- 01/12/23 Vit D 40.2 documented in this encounter [facility] 01-11-2023 Instructions Nidia Weston APRN.CNP - 01/11/2023 7:57 PM EST -PLEASE NOTE THAT WE REVIEW ALL YOUR TEST RESULTS AT YOUR NEXT FOLLOW UP VISIT WITH YOU. IF ANY ABNORMAL LAB REQUIRES SOONER ATTENTION, WE WILL CONTACT YOU. -If you have signed up on adBrite, we will release your test results through adBrite. I wish you the best of health [...] and sulfasalazine, but discuss first with your molded goods inspector trimmer. Supplements recommended Vitamin B12: 500 to 1000 [...] track your nutrition and calcium intake on www.TwitJump This provides macro and micronutrient intake and requirements. - You can track your calcium intake on TwitJump or any other calcium tracker of your [...] now for a cost, such as at www.ERN. -When eating a whole food plant based [...] track your nutrition and calcium intake on www.Southern Air.Preferred Commerce This provides macro and micronutrient intake and [...] that features the Whole Plant Based diet, [place] over knives (see video online and visit website). Another movie that was recently released is: Eating You Alive (you can find it at Scout) and The [employer] movie Dr. Fauzia Ansari is a [facility] physician who is an expert in Whole Plant based diet. His website is Zeuss. His research highlights the benefits of the Whole food plant based diet in reversing and preventing heart disease. Mrs. Ansari (his ) has a cookbook with many recipes on whole plant based food: The Prevent and Reverse Heart Disease cookbook. You can also consider reading his son, Eze Ansari's book: The Engine 2 cookbook Eze is a retired computer information systems instructor who has helped many people get healthier [...] multiple free videos and YouTube, for example: https://youtu.be/igaGoylC9z3 , https://youtu.be/CgRQVxhdx9l He has written multiple books, including Power 2Catalyze for the Brain, The Cheese Trap, Dr. Rock Velazco's Program for Reversing Diabetes, Your Body in Balance Dr. Anthony Carlson has shown the benefit of a starch based whole food plant based diet to his Rheumatoid Arthritis patients, as well as patient with diabetes II, hypertension, obesity, multiple sclerosis, heart disease, acne, and other, his website: www.Perillon Software.Preferred Commerce Dr. Yayo Allred is a renowned scientist immunology, who has studied and researched the benefits of the Whole plant based diet. He has also researched the adverse effects of animal proteins on health. He presents many of his research findings in his book The [place] study. Dr. Gerber Becker has completed many research trials proving the reversal of diseases, such as heart disease and early prostate cancer, with healthy lifestyle and the Whole Plant based diet. Dr. Gerber Becker website is: www.carmenU4EA Networks.Preferred Commerce His new book: Undo It, has evidence [...] To Age Dr. Danitza Dash (from the [facility]), has articles on the following website: Fighters.Preferred Commerce Also, you could find additional information on practical to follow recipes by reading or watching online and YouTube such as: Chef BELLE, Cooking With Plants, The Vegan Corner (recipes from an [employer]), The Whole Foods Plant Based Cooking Show and visiting the provided websites for additional information on the whole plant based benefit and cooking recipes. You can also consider watching the vlogs of some of the plant based Athletes such as Graeme Kamara, Agustin Lundy on [employer]. Dr. Maryan Holguin (a psychiatrist who suffered [...] - Gentle Yoga Anyone Can Do Anywhere www.InQ Biosciences.Preferred Commerce/yoga Also on youtube: yoga with Karlie 3- [...] or a higher dose. Raw: Garlic, Cilantro, [place] nuts, Pumpkin seeds, [place] seeds and Flax seed powder have been reported to help with certain metal detoxification such as mercury. [place]-3 plant based rich foods are good anti-inflammatory [...] the Whole Plant Based Diet, by watching [place] over BoostSuite movie and then review website. There are many other resources and educational information on the Whole plant based diet on the Internet and documentaries. There are other resources for wellness that you can also benefit from, such as the [facility] Wellness website, [facility].org and includes Plant based and Mediterranean diet, yoga and meditation. Please avoid all dairy products. You could use non-dairy milk such as Flax milk, Cashew milk, [place] milk, Rice milk, Oat milk or Hemp [...] Osteoporosis Foundation) http://www.osteo.org/osteolinks.asp National Institutes of Health: 1-500-633-BONE The Calcium Information [place]: -Non-Dairy, Plant based Milk, can contain in1 glass up to 450 mg of calcium (300 to 450 mg) Exampled include Oat Milk, Flax Milk, [place] Milk, Cashew Milk, Soy Milk, Peas Milk general health and well being Examples of Food Sources of Calcium from [facility] Food Milligrams (mg) per serving Percent DV* Soymilk, calcium-fortified, 8 ounces 299 30 [place] juice, calcium-fortified, 6 ounces 261 26 Tofu, firm, made with calcium sulfate, cup* 253 25 Tofu, soft, made with calcium sulfate, cup* 138 14 Nnike-ky-dqb cereal, calcium-fortified, 1 cup 100-1,000 10-100 Turnip greens, fresh, boiled, cup 99 10 Kale, raw, chopped, 1 cup 100 10 Kale, fresh, cooked, 1 cup 94 9 Micronesian cabbage, bok marin, raw, shredded, 1 cup 74 7 Bread, white, 1 slice 73 7 Tortilla, corn, aqibm-an-frqe/marshall, one 6 diameter 46 5 Tortilla, flour, ggqew-qn-xcfs/marshall, one 6 diameter 32 3 Bread, whole-wheat, [...] daily with a meal; Certain patients require 9793-9406 iu daily and in patients deficient in [...] bones. Studies show approximately 50% of [place] men and women are vitamin D deficient [...] is/osteo/info.htm http://ods.od.nih.gov/factsheets/vitam ind.asp National Institutes of Health: 7-869-551-BONE The Calcium Information Center: At the [facility], we work as a team for your care, along with Nurse Practitioners, Physician Assistants, Nurses and Medical Assistants. It is a privilege and honor to serve you. Thank you for choosing The [facility] for your healthcare. Sincerely, Nidia Weston APRN.JOSE documented in this encounter [facility] 12-29-2022 History of Present illness Narrative [...] in patient's severe chronic Rheumatoid Arthritis. His molded goods inspector trimmer has switched him to Humira as he [...] IBD and intermittent steroid therapy from his molded goods inspector trimmer. Pharmacologic therapy is still indicated and recommended, [...] if necessary, CC, NOF and ISCD and [facility]. PLAN: [facility] on 12/29/22 VITAMIN D 25 HYDROXY Please continue on yout Vitamin D 5000 international units once daily with meals and your multivitamin - You are on Humira and sulfasalazine for your Ulcerative Colitis. These are also treating your Rheumatoid Arthritis. During infections you will need to hold the Humira and sulfasalazine, but discuss first with your molded goods inspector trimmer. Supplements recommended Vitamin B12: 500 to 1000 [...] in the office. This medication is given jail, indefinitely. Prolia should not be discontinued without [...] looked into transition therapy. Recent study from [facility] Slim et al, 04/11/2020, reported one infusion [...] initiated in patients who have had an IA or stroke in the preceding year. This [...] atypical and subtroch. fracture of femur with long filler cigar roller machine use of bisphosphonates/alendronate and anti-resorptive agents, there [...] which included preparing to see the patient, [id number] patient care, completing clinical documentation, obtaining and/or [...] the care of your patient. Nidia Weston APRN.[facility] cc Jose L Lackey MD, MD Patient Instructions -PLEASE NOTE THAT WE REVIEW ALL YOUR TEST RESULTS AT YOUR NEXT FOLLOW UP VISIT WITH YOU. IF ANY ABNORMAL LAB REQUIRES SOONER ATTENTION, WE WILL CONTACT YOU. -If you have signed up on adBrite, we will release your test results through adBrite. I wish you the best of health [...] and sulfasalazine, but discuss first with your molded goods inspector trimmer. Supplements recommended Vitamin B12: 500 to 1000 [...] track your nutrition and calcium intake on www.Southern Air.Preferred Commerce This provides macro and micronutrient intake and requirements. - You can track your calcium intake on Infinite Enzymesometer.Preferred Commerce or any other calcium tracker of your [...] now for a cost, such as at www.ERN. -When eating a whole food plant based [...] track your nutrition and calcium intake on www.Southern Air.Preferred Commerce This provides macro and micronutrient intake and [...] that features the Whole Plant Based diet, [place] over knives (see video online and visit website). Another movie that was recently released is: Eating You Alive (you can find it at Scout) and The [employer] movie Dr. Fauzia Ansari is a [facility] physician who is an expert in Whole Plant based diet. His website is Zeuss. His research highlights the benefits of the Whole food plant based diet in reversing and preventing heart disease. Mrs. Ansari (his ) has a cookbook with many recipes on whole plant based food: The Prevent and Reverse Heart Disease cookbook. You can also consider reading his son, Eze Ansari's book: The Engine 2 cookbook Eze is a retired computer information systems instructor who has helped many people get healthier [...] multiple free videos and YouTube, for example: https://youVidly.FlowPay/cxnRchkC2e0 , https://The Health Wagon.be/SfIOHuqky8u He has written multiple books, including Power [...] heart disease, acne, and other, his website: www.debra.Preferred Commerce Dr. Yayo Allred is a renowned scientist immunology, who has studied and researched the benefits of the Whole plant based diet. He has also researched the adverse effects of animal proteins on health. He presents many of his research findings in his book The [place] study. Dr. Gerber Becker has completed many research trials proving the reversal of diseases, such as heart disease and early prostate cancer, with healthy lifestyle and the Whole Plant based diet. Dr. Gerber Becker website is: www.carmenU4EA Networks.Preferred Commerce His new book: Undo It, has evidence based information and guide to following this healthy lifestyle. Dr. Cody Dillon has dedicated a website and additional time to reviewing all food related articles and research and presents them in his power point presentation and on his website at: nutritionfacts.org which is all free. Dr. Dillon has multiple free videos and YouTube, for example https://The Health Wagon.be/aSgNkhgVtks and https://The Health Wagon.be/lXXXygDRyBU. He has written multiple books including: How Not To and How Not To Diet He is now working on his next book: How Not To Age Dr. Danitza Dash (from the [facility]), has articles on the following website: Fighters.Preferred Commerce Also, you could find additional information on practical to follow recipes by reading or watching online and YouTube such as: Mill Work AJ, Cooking With Plants, The Vegan Corner (recipes from an [place] [employer] Work), The Whole Foods Plant Based Cooking Show and visiting the provided websites for additional information on the whole plant based benefit and cooking recipes. You can also consider watching the vlogs of some of the plant based Athletes such as Graeme Kamara, Fausto Marmolejo, Agustin on [employer]. Dr. Maryan Holguin (a psychiatrist who suffered [...] - Gentle Yoga Anyone Can Do Anywhere www.Sanghvi/yoga Also on youtube: yoga with Karlie 3- [...] or a higher dose. Raw: Garlic, Cilantro, [place] nuts, Pumpkin seeds, [place] seeds and Flax seed powder have been reported to help with certain metal detoxification such as mercury. [place]-3 plant based rich foods are good anti-inflammatory [...] the Whole Plant Based Diet, by watching [place] over [employer] movie and then review website. There are many other resources and educational information on the Whole plant based diet on the Internet and documentaries. There are other resources for wellness that you can also benefit from, such as the [facility] Wellness website, [facility], avoninic.org and includes Plant based and Mediterranean diet, yoga and meditation. Please avoid all dairy products. You could use non-dairy milk such as Flax milk, Cashew milk, [place] milk, Rice milk, Oat milk or Hemp [...] Osteoporosis Foundation) http://www.osteo.org/osteolinks.asp National Institutes of Health: 9-647-183-BONE The Calcium Information [place]: -Non-Dairy, Plant based Milk, can contain in1 glass up to 450 mg of calcium (300 to 450 mg) Exampled include Oat Milk, Flax Milk, [place] Milk, Cashew Milk, Soy Milk, Peas Milk general health and well being Examples of Food Sources of Calcium from [facility] Food Milligrams (mg) per serving Percent DV* Soymilk, calcium-fortified, 8 ounces 299 30 [place] juice, calcium-fortified, 6 ounces 261 26 Tofu, firm, made with calcium sulfate, cup* 253 25 Tofu, soft, made with calcium sulfate, cup* 138 14 Fuaxx-gp-iqj cereal, calcium-fortified, 1 cup 100-1,000 10-100 Turnip greens, fresh, boiled, cup 99 10 Kale, raw, chopped, 1 cup 100 10 Kale, fresh, cooked, 1 cup 94 9 Micronesian cabbage, bok marin, raw, shredded, 1 cup 74 7 Bread, white, 1 slice 73 7 Tortilla, corn, ezleu-su-sata/marshall, one 6 diameter 46 5 Tortilla, flour, xjtqy-ne-atcm/marshall, one 6 diameter 32 3 Bread, whole-wheat, [...] daily with a meal; Certain patients require 0555-4133 iu daily and in patients deficient in [...] bones. Studies show approximately 50% of [place] men and women are vitamin D deficient [...] is/osteo/info.htm http://ods.od.nih.gov/factsheets/vitam ind.asp National Institutes of Health: 9-618-526-BONE The Calcium Information Center: At the [facility], we work as a team for your care, along with Nurse Practitioners, Physician Assistants, Nurses and Medical Assistants. It is a privilege and honor to serve you. Thank you for choosing The [facility] for your healthcare. Sincerely, Nidia Weston APRN.METER/RELAY CRAFTSMAN PAST MEDICAL HISTORY Diagnosis Date Monoclonal gammopathy [...] mg subcutaneously every 2 weeks. Prescribed by Marine Electrician : Nel Lebron MD Previously prescr. by [...] in am, 3 noon, 2 pm), per molded goods inspector trimmer No current facility-administered medications for this visit. [...] developed and its performance characteristics determined by [facility]'s [facility] Laboratory Medicine [place] ([facility]). It has not been cleared or approved by the FDA. -[facility] is regulated under CLIA as qualified to [...] 147 53 - 334 mg/dL Final MPA [place], Serum Date Value Ref Range Status 08/19/2018 1,020 534 - 1,267 mg/dL Final MPA Lambda, Serum Date Value Ref Range Status 08/19/2018 551 253 - 653 mg/dL Final MPA [place]/Lambda Ratio Date Value Ref Range Status 08/19/2018 [...] , Gender: Male SCANNER INFORMATION: DXA Model: WeComics W [id number] SITE SCANNED: Lumbar spine and left hip [...] machine for accurate comparison. FOR MORE INFORMATION: [facility] for Osteoporosis and Metabolic Bone Disease: www.ccf.org/arthritis/osteo National Osteoporosis Foundation: www.nof.org International Society of Clinical Densitometry www.iscd.org Electronic Intelligence Officer: [id number] Transcribe Date/Time: Sep 23 2022 10:28A Dictated by : DARRIAN DUBON MD This examination was interpreted and the report reviewed and electronically signed by: DARRIAN DUBON MD on Sep 28 2022 6:46PM EST documented in this encounter [facility] 09-23-2022 History of Present illness Narrative [...] 2022 9:54 AM documented in this encounter [facility] 02-10-2022 Miscellaneous Notes Pt aware. Estefanía [...] you kindly, fa documented in this encounter [facility] 08-22-2020 History of Present illness Narrative [...] 2020 10:20 AM documented in this encounter [facility] Evaluation note Diagnosis Rheumatoid arthritis 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)- Primary Vitamin D deficiency Unspecified vitamin D deficiency Encounter to discuss test results Other specified counseling Encounter for medication review and counseling Other specified counseling Counseling on health promotion and disease prevention Other specified counseling Other osteoporosis without current pathological fracture [facility] Diagnosis Rheumatoid arthritis 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)- Primary Encounter to discuss test results Other specified counseling Counseling on health promotion and disease prevention Other specified counseling Ulcerative pancolitis (HCC) Hazel ulcerative (chronic) colitis Other osteoporosis without current pathological fracture [facility] Diagnosis Rheumatoid arthritis 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)- Primary Encounter to discuss test results Other specified counseling Counseling on health promotion and disease prevention Other specified counseling Ulcerative pancolitis (HCC) Hazel ulcerative (chronic) colitis Vitamin D deficiency Unspecified vitamin D deficiency On sulfasalazine therapy Encounter for medication review and counseling Other specified counseling Other osteoporosis without current pathological fracture Elevated serum immunoglobulin free light chain level Other nonspecific findings on examination of blood [facility] Diagnosis Seropositive rheumatoid arthritis (HCC) Rheumatoid arthritis Other osteoporosis without current pathological fracture Chronic pain of left ankle Ankle deformity, left Pes planus, unspecified laterality Other secondary osteoarthritis of multiple sites [facility] Diagnosis Rheumatoid arthritis 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) Other osteoporosis without current pathological fracture High risk for hip fracture Other specified conditions influencing health status Vitamin D deficiency, hx Unspecified vitamin D deficiency documented [facility]* Diagnosis Other osteoporosis without current pathological fracture High risk for hip fracture Other specified conditions influencing health status Bone loss Other disorders of bone and cartilage Vitamin D deficiency, hx Unspecified vitamin D deficiency [facility] Diagnosis Elevated alkaline phosphatase level- Primary Other nonspecific abnormal serum enzyme levels documented in this encounter [facility] note* Diagnosis Rheumatoid arthritis 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) [facility] Diagnosis Rheumatoid arthritis 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)- Primary Vitamin D deficiency Unspecified vitamin D deficiency Other osteoporosis without current pathological fracture Encounter for medication review and counseling Other specified counseling Rheumatoid arthritis 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) [facility] Diagnosis Foreign body of left hand, sequela- Primary [facility] Diagnosis Rheumatoid arthritis 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)- Primary Vitamin D deficiency Unspecified vitamin D deficiency Other osteoporosis without current pathological fracture [facility] Diagnosis Seropositive rheumatoid arthritis (HCC)- Primary Rheumatoid arthritis Rheumatoid arthritis 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) On sulfasalazine therapy Ulcerative pancolitis (HCC) Hazel ulcerative (chronic) colitis Other osteoporosis without current pathological fracture History of bisphosphonate therapy Personal history of other drug therapy Counseling on health promotion and disease prevention Other specified counseling [facility] Diagnosis Other osteoporosis without current pathological fracture- Primary documented in this encounter [facility] for referral (narrative)* Diagnostic Procedure Only (Routine) - Closed Specialty Diagnoses / Procedures Referred By Contac t Referred To Contact XR IMAGING Diagnoses Rheumatoid arthritis 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) Procedures XR HAND GENERAL 3V PA/LAT/OBL BILATERAL RADEX HAND MINIMUM 3 VIEWS Nidia Weston, NETWORK COORDINATOR.METER/RELAY CRAFTSMAN [address] [place] [address] [place] [address] Referral ID Status Reason Start Date Expiration Date V isits Requested Visits Authorized [id number] Closed Auto-Generate d Referral 03/14/2024 11/15/2024 1 1 [facility] for referral (narrative)* Diagnostic Procedure Only (Routine) - Closed Specialty Diagnoses / Procedures Referred By Contac t Referred To Contact XR IMAGING Diagnoses Rheumatoid arthritis 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) Procedures XR HAND GENERAL 3V PA/LAT/OBL BILATERAL RADEX HAND MINIMUM 3 VIEWS Nidia Weston APRN.METER/RELAY CRAFTSMAN [address] [place] [address] [place] [address] Referral ID Status Reason Start Date Expiration Date V isits Requested Visits Authorized [id number] Closed Auto-Generate d Referral 03/14/2024 11/15/2024 1 1 * Diagnostic Procedure Only (Routine) - Pending Review Specialty Diagnoses / Procedures Referred By Contac t Referred To Contact XR IMAGING Diagnoses Rheumatoid arthritis 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) Procedures XR HAND GENERAL 3V PA/LAT/OBL BILATERAL RADEX HAND MINIMUM 3 VIEWS Nidia Weston NETWORK COORDINATOR.METER/RELAY CRAFTSMAN [address] [place] [address] [place] [address] Referral ID Status Reason Start Date Expiration Date Visits Requested Visits Authorized [id number] Pending Review Auto-Generat ed Referral 04/13/2024 04/13/2025 1 1 [facility] for referral (narrative)* Diagnostic Procedure Only (Routine) - Pending Review Specialty Diagnoses / Procedures Referred By Contac t Referred To Contact XR IMAGING Diagnoses Seropositive rheumatoid arthritis (HCC) Ulcerative pancolitis (HCC) Other osteoporosis without current pathological fracture History of bisphosphonate therapy Procedures DXA-AXIAL SKELETON DXA BONE DENSITY STUDY 1/> SITES AXIAL SKEL Al-Ashkar, Feyrouz, MD [address] [place] [address] [place] [address] Referral ID Status Reason Start Date Expiration Date Visits Requested Visits Authorized [id number] Pending Review Auto-Generat ed Referral 11/04/2025 1 1 [facility] for visit Narrative* Diagnostic Procedure Only (Routine) - Closed Specialty Diagnoses / Procedures Referred By Contac t Referred To Contact XR IMAGING Diagnoses Rheumatoid arthritis 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) Procedures XR HAND GENERAL 3V PA/LAT/OBL BILATERAL RADEX HAND MINIMUM 3 VIEWS Nidia Weston, NETWORK COORDINATOR.METER/RELAY CRAFTSMAN [address] [place] [address] [place] [address] Referral ID Status Reason Start Date Expiration Date V isits Requested Visits Authorized [id number] Closed Auto-Generate d Referral 03/14/2024 11/15/2024 1 1 [facility] Advance Directives No Advanced Directives Records Found [...] NEW HIGH MDM 60 MINUTES Nidia Weston, NETWORK COORDINATOR.METER/RELAY CRAFTSMAN [address] [place] [address] Referral ID Status Reason Start Date Expiration Date Visits Requested Visits Authorized [id number] Authorized PCP Requested Referral 02/11/2024 02/10/2025 1 1 Specialty Diagnoses / Procedures Referred By Hanna aponte Referred To Contact Orthopedics Diagnoses Foreign body of left hand, sequela Procedures CONSULT TO ORTHOPAEDICS OFFICE/OUTPATIENT [facility] 60 MINUTES Nidia Weston, NETWORK COORDINATOR.METER/RELAY CRAFTSMAN [address] [place] [address] Referral ID Status Reason Start Date Expiration Date Visits Requested Visits Authorized [id number] Authorized PCP Requested Referral 04/11/2024 04/11/2025 1 [...] section and content) DATE CREATED AUTHOR 11/30/2021 [facility] DATE CREATED AUTHOR AUTHOR'S ORGANIZ ATION [facility]/20/[address] [facility] DATE CREATED AUTHOR AUTHOR'S ORGANIZ ATION 05/08/2024 [facility] dical [facility] DATE CREATED AUTHOR AUTHOR'S ORGANIZ ATION 06/09/2024 [facility] DATE CREATED AUTHOR AUTHOR'S ORGANIZ ATION 06/18/2024 [facility] DATE CREATED AUTHOR AUTHOR'S ORGANIZ ATION 11/29/2024 [facility] DATE CREATED AUTHOR AUTHOR'S ORGANIZ ATION 12/15/2024 [facility] DATE CREATED AUTHOR AUTHOR'S ORGANIZ ATION 12/16/2024 [facility] DATE CREATED AUTHOR AUTHOR'S ORGANIZ ATION 12/17/2024 [facility] DATE CREATED AUTHOR AUTHOR'S ORGANIZ ATION 12/24/2024 [facility] ical [facility] Source Comments (unrecognize d section and content) In the event this informatio n is protected by the Federal Confidentiality of Alcohol and Drug Abuse Patient Records regulations: The Federal rules restrict any use of the information to criminally investigate or prosecute any alcohol or drug abuse patient.[facility] the event this information is protected by the Federal Confidentiality of Alcohol and Drug Abuse Patient Records regulations: The Federal rules restrict any use of the information to criminally investigate or prosecute any alcohol or drug abuse patient.[facility] the event this information is protected by the Federal Confidentiality of Alcohol and Drug Abuse Patient Records regulations: The Federal rules restrict any use of the information to criminally investigate or prosecute any alcohol or drug abuse patient.[facility] the event this information is protected by the Federal Confidentiality of Alcohol and Drug Abuse Patient Records regulations: The Federal rules restrict any use of the information to criminally investigate or prosecute any alcohol or drug abuse patient.[facility] Hospital[facility] the event this information is protected by the Federal Confidentiality of Alcohol and Drug Abuse Patient Records regulations: The Federal rules restrict any use of the information to criminally investigate or prosecute any alcohol or drug abuse patient.[facility] Hospital[facility] the event this information is protected by the Federal Confidentiality of Alcohol and Drug Abuse Patient Records regulations: The Federal rules restrict any use of the information to criminally investigate or prosecute any alcohol or drug abuse patient.[facility] Hospital[facility] the event this information is protected by the Federal Confidentiality of Alcohol and Drug Abuse Patient Records regulations: The Federal rules restrict any use of the information to criminally investigate or prosecute any alcohol or drug abuse patient.[facility] Hospital[facility] the event this information is protected by the Federal Confidentiality of Alcohol and Drug Abuse Patient Records regulations: The Federal rules restrict any use of the information to criminally investigate or prosecute any alcohol or drug abuse patient.[facility] HospitalIn the event this information is protected by the Federal Confidentiality of Alcohol and Drug Abuse Patient Records regulations: The Federal rules restrict any use of the information to criminally investigate or prosecute any alcohol or drug abuse patient.[facility] HospitalIn the event this information is protected by the Federal Confidentiality of Alcohol and Drug Abuse Patient Records regulations: The Federal rules restrict any use of the information to criminally investigate or prosecute any alcohol or drug abuse patient.[facility] Hospital[facility] the event this information is protected by the Federal Confidentiality of Alcohol and Drug Abuse Patient Records regulations: The Federal rules restrict any use of the information to criminally investigate or prosecute any alcohol or drug abuse patient.[facility] HospitalIn the event this information is protected by the Federal Confidentiality of Alcohol and Drug Abuse Patient Records regulations: The Federal rules restrict any use of the information to criminally investigate or prosecute any alcohol or drug abuse patient.[facility] Hospital[facility] the event this information is protected by the Federal Confidentiality of Alcohol and Drug Abuse Patient Records regulations: The Federal rules restrict any use of the information to criminally investigate or prosecute any alcohol or drug abuse patient.[facility] HospitalIn the event this information is protected by the Federal Confidentiality of Alcohol and Drug Abuse Patient Records regulations: The Federal rules restrict any use of the information to criminally investigate or prosecute any alcohol or drug abuse patient.[facility] HospitalIn the event this information is protected by the Federal Confidentiality of Alcohol and Drug Abuse Patient Records regulations: The Federal rules restrict any use of the information to criminally investigate or prosecute any alcohol or drug abuse patient.[facility] HospitalIn the event this information is protected by the Federal Confidentiality of Alcohol and Drug Abuse Patient Records regulations: The Federal rules restrict any use of the information to criminally investigate or prosecute any alcohol or drug abuse patient.[facility] the event this information is protected by the Federal Confidentiality of Alcohol and Drug Abuse Patient Records regulations: The Federal rules restrict any use of the information to criminally investigate or prosecute any alcohol or drug abuse patient.[facility] the event this information is protected by the Federal Confidentiality of Alcohol and Drug Abuse Patient Records regulations: The Federal rules restrict any use of the information to criminally investigate or prosecute any alcohol or drug abuse patient.[facility] Reason for Visit (unrecogniz ed section [...] INJECTION, ZOLEDRONIC ACID, 1 MG Nidia Weston, NETWORK COORDINATOR.[employer]RAFTSM[employer] [address] [place] [address] [facility] Maria De Jesus [address] [place] [address] Referral ID Status Reason Start Date Expiration Date V isits Requested Visits Authorized [id number] Authorized 04/12/2024 04/12/2025 1 1 Care Teams (unrecognized sec tion and content) Pocket Creaser Relationship Specialty Start Date End Date Jose L Lackey MD PCP - General Family Practice 01/18/14 Pocket Creaser Relationship Specialty Start Date End Date Jose L Lackey MD PCP - General Family Medicine 01/18/14 Pocket Creaser Relationship Specialty Start Date End Date Jose L Lackey MD PCP - General Family Medicine 01/18/14 Pocket Creaser Relationship Specialty Start Date End Date Jose L Lackey MD PCP - General Family Medicine 01/18/14 Pocket Creaser Relationship Specialty Start Date End Date Jose L Lackey MD PCP - General Family Medicine 01/18/14 Pocket Creaser Relationship Specialty Start Date End Date Jose L Lackey MD PCP - General Family Medicine 01/18/14 Pocket Creaser Relationship Specialty Start Date End Date Jose L Lackey MD PCP - General Family Medicine 01/18/14 Pocket Creaser Relationship Specialty Start Date End Date Jose L Lackey MD PCP - General Family Medicine 01/18/14 Pocket Creaser Relationship Specialty Start Date End Date Jose L Lackey MD PCP - General Family Medicine 01/18/14 Pocket Creaser Relationship Specialty Start Date End Date Jose L Lackey MD PCP - General Family Medicine 01/18/14 Pocket Creaser Relationship Specialty Start Date End Date Jose L Lackey MD PCP - [facility] 01/18/14 Pocket Creaser Relationship Specialty Start Date End Date Jose L Lackey MD PCP - [facility] 01/18/14 Pocket Creaser Relationship Specialty Start Date End Date Jose L Lackey MD PCP - [facility] 01/18/14 Pocket Creaser Relationship Specialty Start Date End Date Jose L Lackey MD PCP - [facility] 01/18/14 FOR RECORDS PERTAINING TO [...] BE BASED ON THE PRIMARY CLINICAL RECORDS. [facility] [employer] [facility] provides no warranty or guarantee of the accuracy or completeness of information in this document.
[2025-01-26 10:59] LABS: Basophils Percent Auto 0.2 % (0.2-2.0); Hematocrit 35.4 % (42.0-54.0); Hemoglobin 11.7 g/dL (14.0-18.0); Immature Granulocytes Abs Auto 0.02 10^3/uL (0.00-0.03); Immature Granulocytes Pct Auto 0.2 % (0.0-0.5); Lymphocytes Absolute Auto 1.6 10^3/uL (1.2-3.8); Lymphocytes Percent Auto 18.9 % (20.5-60.0); Mean Corpuscular HGB Conc 33.1 g/dL (29.9-35.2); Mean Corpuscular Hemoglobin 31.1 pg (25.9-34.0); Mean Corpuscular Volume 94.1 fL (80.0-94.0); Mean Platelet Volume 8.6 fL (9.5-13.5); Monocytes Absolute Auto 0.7 10^3/uL (0.3-0.8); Monocytes Percent Auto 8.1 % (1.7-12.0); Neutrophils Absolute Auto 6.2 10^3/uL (1.4-6.5); Neutrophils Percent Auto 72.6 % (43.0-75.0); Platelet Count 258 10^3/uL (150-450); Red Blood Count 3.76 10^6/uL (4.70-6.10); Red Cell Distribution Width 14.5 % (11.0-15.0); White Blood Count 8.5 10^3/uL (4.0-11.0)
== END 2025-01-26 10:36 | disposition home or self-care (01) ==
LOC: LAB 10:38
PROVIDERS: PCP Family Medicine; Visit Provider Family Medicine
DX: D50.9 Iron deficiency anemia, unspecified (principal)
CPT/HCPCS: 36415; 82728; 83540; 85025

== ENCOUNTER 2025-01-28 12:37 | Emergency (ER) | payer OTHER, MEDICAID, SELFPAY ==
[2025-01-28 12:44] VITALS: BP 149/88; PULSE 94; TEMP 36.6; O2SAT 97; BMI 28.6
--- OUTSIDE RECORDS SUMMARY | 2025-01-28 12:48 | XMS_ITS | CCD ---
Author Organization [facility] Care Team Providers Care Landfill Gas Collection Operator Name Role Phone Rigo Gonzalez Attending Provider Jose L Lackey Primary Care Provider Jose L Lackey MD Primary Care Provider [phone] Jose L Lackey MD Primary Care Provider [phone] ZIYAD ., DR DOMINGO Primary Care Unavailable HOY ., DR DOMINGO Consulting Unavailable HOY ., DR DOMINGO Attending Unavailable HOY ., DR DOMINGO Admitting Unavailable BAD AXE, DR KALEIGH Strong Consulting Unavailable HOY ., [...] Jose L Lackey MD Primary Care Provider [phone] DAMION MABRY Attending Unavailable DAMION MABRY [...] Medication Allergies] Propensity to adverse reactions (disorder) [facility] Repository Medications Current Medications Medication Drug [...] in am, 3 noon, 2 pm), per embroidery finisher 0 Active Comment on above: Take by mouth. takes 8 pills a days, divided three times daily (3 in am, 3 noon, 2 pm), per embroidery finisher TAKE 2 TABLETS BY MO UT 4 [...] mg subcutaneously every 2 weeks. Prescribed by Dairy Science Teacher : Nel Lebron MD Previously prescr. by Ronald Brown MD 0 02/18/2021 05/04/2023 Discontinued Comment on above: Inject 40 mg subcuta neously every 2 weeks. Prescribed by Dairy Science Teacher : Nel Lebron MD Previously prescr. by [...] on above: TAKE 1 CAPSULE BY MO [facility] 4 TIMES A DAY 0.5 ml etanercept [...] (2 sources) Drug therapy finding; Translations: [Other superintendent container terminal (current) drug therapy] Episodic Other bone disease [...] te Episodic/Chronic Other aftercare (1 source) Other superintendent container terminal (current) drug therapy; Translations: [OTH PENITENTIARY CURRENT DRUG THERAPY] Onset: 09-26-2022 Episodic Other [...] Qn (Bld) 0.09 International_Unit/mL Invalid Interpretation Code [facility] Comment on above: Performed By: #### 1 [id number] #### [facility] [address] [place] [address] M. tuberculosis stim IFN-g by CD4+ CD8+ T-cells corrected for background Qn (Bld) 0.07 International_Unit/mL Invalid Interpretation Code [facility] Comment on above: Performed By: #### 1 [id number] #### [facility] [address] [place] [address] M. tuberculosis stim IFN-g by CD4+ T-cells corrected for background Qn (Bld) 0.07 International_Unit/mL Invalid Interpretation Code [facility] Comment on above: Performed By: #### 1 [id number] #### [facility] [address] [place] [address] M. tuberculosis stim IFN-g Ql (Bld) [Interp] Negative Invalid Interpretation Code Negative [facility] Comment on above: Result Comment: No [...] methodology Performed at: [facility] [address], [place] [id number] PhD Tarun Olivas Performed By: #### 1 [id number] #### [facility] [address] [place] [address] Mitogen stimulated gamma interferon corrected for background Qn (Bld) >10.00 Invalid Interpretation Code [facility] Comment on above: Performed By: #### 1 [id number] #### [facility] [address] [place] [address] Service comment (Unsp spec) [Interp] Comment Invalid Interpretation Code [facility] Comment on above: Result Comment: Malachi [...] for the test. Performed By: #### 1 [id number] #### [facility] [address] [place] [address] AMA Ab Scron 12-15-2024 Mitochondria M2 IgG Qn (S) <20.0 Invalid Interpretation Code 0.0-20.0 [facility] Comment on above: Result Comment: Nega tive 0.0 - 20.0 Equivocal 20.1 - 24.9 Positive >24.9 Mitochondrial (M2) Antibodies are found in 90-96% of patients with primary biliary cirrhosis. Performed at: [facility] [address], [place] [id number] PhD Tarun Olivas Performed By: #### 1 [id number] #### [facility] [address] [place] [address] Celiac Disease Comprehensive on 12-15-2024 Endomysium IgA Ql (S) Negative Invalid Interpretation Code Negative [facility] Comment on above: Performed By: #### 1 [id number] #### [facility] [address] [place] [address] Gliadin peptide IgA Qn (S) 5 unit(s) Invalid Interpretation Code 0-19 [facility] Comment on above: Result Comment: Nega tive 0 - 19 Weak Positive 20 - 30 Moderate to Strong Positive >30 Performed By: #### 1 [id number] #### [facility] [address] [place] [address] Gliadin peptide IgG Qn (S) 2 unit(s) Invalid Interpretation Code 0-19 [facility] Comment on above: Result Comment: Nega tive 0 - 19 Weak Positive 20 - 30 Moderate to Strong Positive >30 Performed By: #### 1 [id number] #### [facility] [address] [place] [address] IgA [Mass/Vol] 199 mg/dL Invalid Interpretation Code 90-386 [facility] Comment on above: Result Comment: Perf ormed at: [facility] [address] [id number] PhD Tarun Olivas Performed By: #### 1 [id number] #### [facility] [address] [place] [address] tTG IgA Qn (S) <2 Invalid Interpretation Code 0-3 [facility] Comment on above: Result Comment: Nega tive 0 - 3 Weak Positive 4 - 10 Positive >10 Tissue Transglutaminase (tTG) has been identified as the endomysial antigen. Studies have demonstr- ated that endomysial IgA antibodies have over 99% specificity for gluten sensitive enteropathy. Performed By: #### 1 [id number] #### [facility] [address] [place] [address] tTG IgG Qn (S) 6 unit/mL High 0-5 [facility] Comment on above: Result Comment: Nega tive 0 - 5 Weak Positive 6 - 9 Positive >9 Performed By: #### 1 [id number] #### [facility] [address] [place] [address] Hep Bs Abon 12-15-2024 HBV surface Ab Ql (S) Non-Reactive Invalid Interpretation Code [facility] Comment on above: Result Comment: Non Reactive: Not immune to HBV infection. Equivocal: Unable to determine if anti-HBs is present at levels consistent with immunity. Reactive: Anti-HBs concentration detected at greater than 10 mIU/mL. Individual is considered to be immune to infection with HBV. Performed at: [facility] [address] [place] [id number] PhD Tarun Olivas Performed By: #### 2 [id number] #### [facility] [address] [place] [address] Hep Bs Agon 12-15-2024 HBV surface Ag IA Ql Negative Invalid Interpretation Code Negative [facility] Comment on above: Result Comment: Perf ormed at: [employer] [address] [id number] PhD Tarun Olivas Performed By: #### 2 [id number] #### [facility] [address] [place] [address] Ambulatory Visit Summaryon 0 12-14-2024 Ambulatory Visit [...] With: Ricky ROBLERO, Luis Antonio Tiwari Where: [facility] [address] [place] [address]- You Need to Complete the Following C-Reactive [...] PSA (prostate specific antigen) Ulcerative colitis, universal Crowley ulcerative colitis Ureteral stone with hydronephrosis Urethral [...] for choosing us for your care. Normal [facility] CBC w/ Auto Diffon 5 Basophils/100 WBC (Bld) 0.5 % Normal 0.0-2.0 [facility] Comment on above: Performed By: #### 2 [id number] #### [facility] [address] [place] [address] Basophils/Leukocytes Auto (Bld) [Pure # fraction] 0.0 E9/L Normal 0.0-0.2 [facility] Comment on above: Performed By: #### 2 [id number] #### [facility] [address] [place] [address] Eosinophils (Bld) [#/Vol] 0.0 E9/L Normal 0.0-0.5 [facility] Comment on above: Performed By: #### 2 [id number] #### [facility] [address] [place] [address] Eosinophils/100 WBC (Bld) 0.0 % Normal 0.0-8.0 [facility] Comment on above: Performed By: #### 2 [id number] #### [facility] [address] [place] [address] Erythrocyte distribution width (RBC) [Ratio] 15.6 % High 10.9-14.2 [facility] Comment on above: Performed By: #### 2 [id number] #### [facility] [address] [place] [address] Hematocrit (Bld) [Volume fraction] 36.2 % Low 37.7-49.0 [facility] Comment on above: Performed By: #### 2 [id number] #### [facility] [address] [place] [address] Hemoglobin (Bld) [Mass/Vol] 12.6 g/dL Low 13.5-17.5 [facility] Comment on above: Performed By: #### 2 [id number] #### [facility] [address] [place] [address] Lymphocytes (Bld) [#/Vol] 1.6 E9/L Normal 1.0-4.0 [facility] Comment on above: Performed By: #### 2 [id number] #### [facility] [address] [place] [address] Lymphocytes/100 WBC (Bld) 24.8 % Normal 14.0-50.0 [facility] Comment on above: Performed By: #### 2 [id number] #### [facility] [address] [place] [address] MCH (RBC) [Entitic mass] 31.7 pg Normal 27.0-34.0 [facility] Comment on above: Performed By: #### 2 [id number] #### [facility] [address] [place] [address] MCHC (RBC) [Mass/Vol] 34.9 g/dL Normal 31.4-36.0 [facility] Comment on above: Performed By: #### 2 [id number] #### [facility] [address] [place] [address] MCV (RBC) [Entitic vol] 90.8 fL Normal 80.0-100.0 [facility] Comment on above: Performed By: #### 2 [id number] #### [facility] [address] [place] [address] Monocytes (Bld) [#/Vol] 0.5 E9/L Normal 0.2-1.0 [facility] Comment on above: Performed By: #### 2 [id number] #### [facility] [address] [place] [address] Neutrophils (Bld) [#/Vol] 4.4 E9/L Normal 2.0-7.5 [facility] Comment on above: Performed By: #### 2 [id number] #### [facility] [address] [place] [address] Neutrophils/100 WBC (Bld) 67.2 % Normal 36.0-75.0 [facility] Comment on above: Performed By: #### 2 [id number] #### [facility] [address] [place] [address] Platelet 261.0 E9/L Normal 150.0-500. 0 [facility] Comment on above: Performed By: #### 2 [id number] #### [facility] [address] [place] [address] Platelet mean volume (Bld) [Entitic vol] 6.9 fL Normal 6.4-10.8 [facility] Comment on above: Performed By: #### 2 [id number] #### [facility] [address] [place] [address] RBC (Bld) [#/Vol] 4.0 E12/L Low 4.3-5.9 [facility] Comment on above: Performed By: #### 2 [id number] #### [facility] [address] [place] [address] WBC corrected for nucl RBC Auto (Bld) [#/Vol] 6.6 E9/L Normal 4.0-11.0 [facility] Comment on above: Performed By: #### 2 [id number] #### [facility] [address] [place] [address] CMPon 12-14-2024 Albumin [Mass/Vol] 4.1 g/dL Normal 3.3-5.0 [facility] Comment on above: Performed By: #### 2 [id number] #### [facility] [address] [place] [address] Albumin/Globulin (S) [Mass conc ratio] 1.5 Normal 1.1-2.2 [facility] Comment on above: Performed By: #### 2 750774 #### [facility] [address] [place] [address] ALP [Catalytic activity/Vol] 88 Int._Unit/L Normal 21-98 [facility] Comment on above: Performed By: #### 2 [id number] #### [facility] [address] [place] [address] ALT No additional P-5'-P [Catalytic activity/Vol] 27 Int._Unit/L Normal 6-46 [facility] Comment on above: Performed By: #### 2 858605 #### [facility] [address] [place] [address] Anion gap [Moles/Vol] 9 mmol/L Normal 6-16 [facility] Comment on above: Performed By: #### 2 [id number] #### [facility] [address] [place] [address] AST [Catalytic activity/Vol] 29 Int._Unit/L Normal 5-43 [facility] Comment on above: Performed By: #### 2 [id number] #### [facility] [address] [place] [address] Bilirubin [Mass/Vol] 0.4 mg/dL Normal 0.0-1.1 [facility] Comment on above: Performed By: #### 2 797886 #### [facility] [address] [place] [address] Calcium [Mass/Vol] 9.1 mg/dL Normal 8.9-11.1 [facility] Comment on above: Performed By: #### 2 714245 #### [facility] [address] [place] [address] Chloride [Moles/Vol] 108 mmol/L Normal 101-111 [facility] Comment on above: Performed By: #### 2 [id number] #### [facility] [address] [place] [address] CO2 [Moles/Vol] 27 mmol/L Normal 21-31 [facility] Comment on above: Performed By: #### 2 [id number] #### [facility] [address] [place] [address] Creatinine [Mass/Vol] 0.8 mg/dL Normal 0.5-1.3 [facility] Comment on above: Performed By: #### 2 303874 #### [facility] [address] [place] [address] Globulin (S) [Mass/Vol] 2.8 g/dL Normal 1.4-4.0 [facility] Comment on above: Performed By: #### 2 [id number] #### [facility] [address] [place] [address] Glucose [Mass/Vol] 94 mg/dL Normal 55-199 [facility] Comment on above: Performed By: #### 2 [id number] #### [facility] [address] [place] [address] Potassium [Moles/Vol] 4.7 mmol/L Normal 3.5-5.3 [facility] Comment on above: Performed By: #### 2 394871 #### [facility] [address] [place] [address] Protein [Mass/Vol] 6.9 g/dL Normal 6.0-7.8 [facility] Comment on above: Performed By: #### 2 909752 #### [facility] [address] [place] [address] Sodium [Moles/Vol] 139 mmol/L Normal 135-145 [facility] Comment on above: Performed By: #### 2 823151 #### [facility] [address] [place] [address] Urea nitrogen [Mass/Vol] 16 mg/dL Normal 5-21 [facility] Comment on above: Performed By: #### 2 376364 #### [facility] [address] [place] [address] Urea nitrogen/Creatinine [Mass ratio] 20 No Units Normal 10-20 [facility] Comment on above: Performed By: #### 2 [id number] #### [facility] [address] [place] [address] CRPon 12-14-2024 CRP [Mass/Vol] 0.2 mg/dL Normal <=1.9 [facility] Comment on above: Performed By: #### 2 [id number] #### [facility] [address] [place] [address] Gastroenterology Office/Clin ic Noteon 12-14-2024 Gastroenterology Office/Clinic [...] Last visit 06/13/24 w/Dr. García: Assessment/Plan 1. Crowley ulcerative colitis (K51.00: Ulcerative (chronic) pancolitis without [...] next colonoscopy, he prefers to stay at [facility] He has also RA, no specific therapy for now, follows with Dr. Valente at [facility] We discussed that having this lesion in [...] 89.5 fL (03/02/24) Chloride: 107 mmol/L (03/02/24) Grady Absolute: 0.5 E9/L (03/02/24) CO2: 27 mmol/L (03/02/24) Grady Auto: 8.2 % (03/02/24) Creatinine: 0.8 mg/dL (03/02/24) MPV: 6.9 fL (03/02/24) Globulin: 3 gm/dL (03/02/24) Neutro Absolute: 4.2 E9/L (03/02/24) Glucose Lvl: 97 mg/dL (03/02/24) Neutro Auto: 63.6 % (03/02/24) Potassium Lvl: 3.6 mmol/L (03/02/24) Platelet: 344 E9/L (03/02/24) Sodium Lvl: 141 mmol/L (03/02/24) RBC: 3.9 E12/L Low (03/02/24) Total Protein: 7 (more content not included)... Normal [facility] Comment on above: Result Comment: Elec tronically Signed By: Ricky ROBLERO, Luis Antonio Tiwari\chelsea\Date and Time Signed: 12/14/24 08:52 EST eGFRon 12-14-2024 eGFR 101 mL/min/1.73 m2 Normal >=59 [facility] Comment on above: Performed By: #### 1 [id number] #### [facility] [address] [place] [address] Ambulatory Visit Summaryon 0 11-21-2024 Ambulatory Visit [...] With: Ricky ROBLERO, Luis Antonio Tiwari Where: [facility] [address] [facility] [address] [place] [address]- You Need to Schedule the Following Appointments Follow Up with DARRELL ROBLERO, LOREE Bunch When: Where: [facility] [address], [place] [address]- Medications What How Much When Instructions Unchanged [...] PSA (prostate specific antigen) Ulcerative colitis, universal Crowley ulcerative colitis Ureteral stone with hydronephrosis Urethral [...] What are (more content not included)... Normal [facility] CNPNon 11-21-2024 CNPN Telephone ([employer]) ----- JAM TOSCANO ([id number]) 1965 M Date Time Provider Department 11/21/24 [...] toe 3 days ago. States this is web press roll tender with movement. Denies any change in [...] apt with me or any rheum ANGÉLICA (CLAY HOISTER or [place]) who has opening soon. thank you kindly, Estephania Lara LPN 11/23/2024 8:01 AM Signed Please offer appt with Dr Dubon or CLAY HOISTER, if patient still interested. Jordyn Roberson 11/23/2024 [...] atorvastatin (LIPITOR (more content not included)... Normal [facility] PSA Totalon 11-21-2024 Prostate specific Ag [Mass/Vol] 3.3 ng/mL Normal 0.1-3.5 [facility] Comment on above: Result Comment: The concentration of PSA determined by different manufacturers can vary due to differences in assay methods and reagent specificity. Values obtained from different assay methods cannot be used interchangeably. The methodology used for this result was chemiluminescence using [employer]'s Access Hybritech PSA reagent. Performed By: #### 1 [id number] #### [facility] [address] [place] [address] [facility] 10-05-2024 [facility] Office Visit (ANGEL ) ----- OPALJAM DONALD ([id number]) 1965 M Date Time Provider Department 10/05/24 7:20 AM DARRIAN DUBON During your visit today, we recorded the following information about you: Pulse Blood pressure Weight 66/minute 128/76 77.7 kg Darrian Dubon MD 10/16/2024 7:47 PM Signed FOLLOW UP VISIT Patient's Name: Jam Murguiaaletha Melissa Erwin [facility] [address] PCP: Jose L Lackey MD [address] [place] [phone] Consult Requested by: Jose L Lackey MD [address] [place] [address] Other physicians: Dairy Science Teacher prev. Nel Lebron MD (his prev. embroidery finisher left- Ronald Brown MD) ; Now following [...] No stiffness He is on sulfasalazine per embroidery finisher for his UC and this has been controlling his RA He is pleased with his treatment regimen He also states that his IBD is well controlled, states told is in remission, on Entyvio Doing exercise and working with tangible personal property appraiser at the gym and will be going [...] in IBD and is following with local embroidery finisher for that. Has been on Humira since Sep 2020 (started with 80 mg loading dose and since has been on 40 mg every 2 wks) He was pleased with Enbrel response to his RA and later was switched to Humira, reports has similar benefit and is pleased with response. His embroidery finisher switched him to Humira for optimal mgt of IBD and he feels this has helped his IBD better. Reports still gets 8 BM's a day, does not have BM at night, does not have to wake up from sleep. Has been following with his embroidery finisher for his UC Had colonoscopy 11/22/2021 with reported marked improvement in asc/transv/desc colon and severe active in rectum, histopath with active colitis with erosions. States Dr. Lebron has started him on rectal enemas. Recent colonoscopy with reported active colitis. He tells me that he continues to have multiple BM's; His embroidery finisher prescribed pred. course, completed recently. No jt [...] us, he is on Humira per his Dairy Science Teacher He is off Enbrel, was switched to Humira by his embroidery finisher. (previously was on Enbrel 25 mg twice a wk and has been in remission since on Enbrel and very pleased with his treatment regimen) He is on Humira 40 mg every 2 wks by his Dairy Science Teacher He is on sulfasalazine, Humira and mesalamine enemas per his embroidery finisher I have reviewed benefits of a whole food plant based diet He consumes dairy, cheese, sausage, hamburger. I have advised him on avoiding meats and dairy and reviewed reports and patient experience with flare of IBD and RA, as well as gastrointestinal dysbiosis. I advised him on a whole foods plant based diet. He has a spice blender ([employer]) and interested in making healthy smoothies and [...] 2018 Lowest (more content not included)... Normal [facility] Ambulatory Visit Summaryon 0 06-13-2024 Ambulatory Visit Summary Ambulatory Visi t Summary ARNULFOJAM SCHUSTER :1965 Visit Date:06/13/2024 Ambulatory Visit Instructions Your Diagnosis Crowley ulcerative colitis History of colon polyps Elevated [...] (Entyvio 300 mg intravenous injection) See instructions Crowley ulcerative colitis 300 mg/ kg at week [...] Prostate calculus Rectal bleed Ulcerative colitis, universal Crowley ulcerative colitis Urethral stone Historical - Any problem that you are no longer receiving treatment for. Extreme obesity Ulcerative colitis Patient Survey You may receive a survey via text or e-mail asking about your office visit. Please share your experience with us by completing your survey. We appreciate your feedback and thank you for choosing us for your care. Normal [facility] Gastroenterology Office/Clin ic Noteon 06-13-2024 Gastroenterology Office/Clinic [...] [place] [facility] He has also RA, no specific therapy for now, follows with Dr. Valente at [facility] We discussed that having this lesion in [...] 89.5 fL (03/02/24) Chloride: 107 mmol/L (03/02/24) Grady Absolute: 0.5 E9/L (03/02/24) CO2: 27 mmol/L (03/02/24) Grady Auto: 8.2 % (03/02/24) Creatinine: 0.8 mg/dL [...] WT: 167.2 lb BMI: 26.93 Assessment/Plan 1. Crowley ulcerative colitis (K51.00: Ulcerative (chronic) pancolitis without complications) UC History: Severe ulcerative colitis , dx 03/2015, started on (more content not included)... Normal [facility] Comment on above: Result Comment: Elec tronically Signed By: Ricky ROBLERO, Luis Antonio Tiwari\.br\Date and Time Signed: 06/13/24 10:35 EDT Surgical Pathology Reporton 06-07-2024 Surgical Pathology Report [facility] [address] [place] [address]- Surgical Pathology Report Collected Date/Time: 06/03/2024 10:08 [...] is entirely submitted in one cassette. (DC) DC:[facility] Microscopic Description A-E: Microscopic examination performed unless gross only specified. The use of one or more reagents in the above tests is regulated as an analyte specific reagent (ASR). The test or tests are ordered following initial H&E microscopic examination. The performance characteristics were determined by the Laboratory of [facility]. They have not been cleared or approved by the US Food and Drug Administration. The FDA has determined that such clearance or approval is not necessary. These tests are used for clinical purposes. They should not be regarded as investigational or for research. Appropriate positive and negative controls are performed and are acceptable. Normal [facility] Comment on above: Performed By: #### 4 [id number] #### [facility] [address] [place] [address] Main OR Intraoperative Recor don 06-06-2024 Main OR Intraoperative Record Main OR Intraoperative Record IntraOp Document Type FT Summary Primary Physician: Gisele ROBLERO, Asim Arroyo Finalized Date/Time: 06/06/24 09:08:21 Pt. Name: JAM TOSCANO /Sex: 1965 Male Med Rec #: [id number] Physician: Ricky ROBLERO, Luis Antonio Tiwari Financial #: [id number] Pt. Type: O Room/Bed: / Admit/Disch: 06/03/24 [...] 06/06/24 Chart opened for charge review per Trsiha Mario RN. [place] Case Attendance FT Entry 1 Entry 2 Entry 3 Case Attendee Kimberly CHÁVEZ, Rajeev Jaquez MD, Asim Rosado RN, Lauren Espinosa Role Performed Anesthesiologist Surgeon - Primary Drilling Manager - Primary Department Head Time In 06/03/24 10:03:00 06/03/24 10:03:00 06/03/24 [...] MD, Asim Arroyo, Alonzo RAMESH, Jeniffer Horowitz WIRE TURNING MACHINE OPERATOR, Claire Villalobos Time Out Complete 06/03/24 10:05:00 [...] rectal polypectomy. Primary Procedure Yes Primary Surgeon Giseel ROBLERO, Asim Arroyo Start 06/03/24 10:07:00 Stop [...] and tissue Entry 1 Skin Integrity Intact, Pangburn, Warm, and Skin Abnormality No Dry Outcomes Met? Yes Last Modified By: (more content not included)... Normal [facility] Colonoscopy Procedure Report on 06-03-2024 Esophagogastroduodenoscop [...] 1-2 after discharge EGd with bx Normal [facility] Comment on above: Other Comment: Sheila trinh Attachment - attachment storage system not supported [id number] Can be viewed in source systemMissing Attachment - attachment storage system not supported [id number] Can be viewed in source systemMissing Attachment - attachment storage system not supported [id number] Can be viewed in source systemMissing Attachment - attachment storage system not supported [id number] Can be viewed in source systemMissing Attachment - attachment storage system not supported [id number] Can be viewed in source systemMissing Attachment - attachment storage system not supported [id number] Can be viewed in source systemMissing Attachment - attachment storage system not supported [id number] Can be viewed in source systemMissing Attachment - attachment storage system not supported 1456344 Can be viewed in source systemMissing Attachment - attachment storage system not supported 4473848 Can be viewed in source system Discharge Instructionson Discharge Instructions Discharge Instruc tions JAM TOSCANO :1965 Visit Date:06/03/2024 Inpatient Discharge Instructions Your Care Team Admitting Physician - Luis Antnoio García MD Referring Physician - Luis Antonio [...] EDT With: Luis Antonio García MD Where: [facility] Normal [facility] Comment on above: Result Comment: Elec [...] TOSCANO Don/Sex: 1965 Male Med Rec #: [id number] Physician: Luis Antonio García MD Financial #: [id number] Pt. Type: O Room/Bed: / Admit/Disch: 06/03/24 [...] Mary Lou Garcia RN 06/03/24 14:21 Normal [facility] Main OR Preoperative Recordo n 06-03-2024 Main OR Preoperative Record Main OR Preoperative Record Holding Area Document Type FT Summary Primary Physician: Asim Jaquez MD Finalized Date/Time: 06/03/24 09:08:09 Pt. Name: JAM TOSCANO D.O.B./Sex: 1965 Male Med Rec #: [id number] Physician: Luis Antonio García MD Financial #: [id number] Pt. Type: O Room/Bed: / Admit/Disch: 06/03/24 [...] 06/03/24 09:02 Jaguar Herrera RN 06/03/24 09:08 [facility] Liveron 06-01-2024 US Liver Exam Date/Time: 05/30/2024 [...] Transcribed by: BERNARD Technologist: ZAIRE [facility] CNOVon 05-09-2024 CNOV Office Visit (ANGEL ) ----- JAM TOSCANO ([id number]) 1965 M Date Time Provider Department 05/09/24 9:00 AM NIDIA WESTON During your visit today, we recorded the following information about you: Temperature Pulse Blood pressure Weight 98.4 degrees 89/minute 118/79 76.3 kg Nidia Weston, VAMP CREASER.SHEETER HELPER 05/09/2024 10:39 AM Signed Follow up Jam [...] D defi (more content not included)... Normal [facility] Physician Orderon 05-05-2024 Physician Order [id number]#1.00TIFF Normal [facility] ([employer]) ----- JAM TOSCANO ([id number]) 1965 M Date Time Provider Department 05/03/24 BEN MARTINEZ During your visit today, we recorded the following information about you: Estephania Devine LPN 05/03/2024 10:55 AM Signed Received lab results from [facility]. Results placed on your desk at [facility] for review. Kelli Madrid MA 05/05/2024 8:28 AM Signed Pt is scheduled with Nidia and infusion on Thursday -- Ben Martinez MD 05/05/2024 2:07 PM Signed For chart: [place] 05/02/24 high esr 79 (normal<20mm/hr), normal vitamin D 51.4, cmp, creat 0.94, calcium 8.7, crp<0.5 (normal<0.5mg/dL); Allergies As of Date: 05/03/2024 (No Known Allergies) Date Reviewed: 04/11/2024 Reviewed by: Nidia Weston, ADEOLA.SHEETER HELPER - Fully Assessed Reason for Visit: Results [...] Encounter Status:Closed by [facility] Telephone (ANGEL) ----- RIMMAJAM ([id number]) 1965 M Date Time Provider Department 04/11/24 NIDIA WESTON During your visit today, we recorded the following information about you: Nidia Weston APRN.JOSE 04/11/2024 7:56 PM Addendum Please call dentist for clearance for op med reclast [facility] [phone] Please also call patient Xray showed Severe changes of chronic inflammatory arthritis, similar to prior. Left hand metallic foreign body. Did he injury his left hand prior ? Did he have eval on this prior if never eval I did place a consult to ortho Kelli Madrid MA 04/12/2024 12:11 PM Signed Called [facility] [phone] currently at lunch - will call back after 1pm Kelli Madrid MA 04/12/2024 2:35 PM Signed Spoke with [facility] requesting dental clearance letter be faxed to [phone] faxed with confirmation Notified patient of below, [...] Date Reviewed: 04/11/2024 Reviewed by: Nidia Weston APRN.SHEETER HELPER - Fully Assessed Reason for Visit: Patient Update [1234] Primary Visit Diagnosis:Foreign body of left hand, sequela [S60.552S] Order(s):CONSULT TO ORTHOPAEDICS [9026] Order #: [id number]: 1 FUTURE Prescriptions as of 05/03/2024 - [...] Status:Closed by KELLI MADRID on 04/12/24 Normal [facility] Pre-Certification Formon Pre-Certification Form [id number]#1.00TIFF Normal [facility] CNOVon 03-14-2024 CNOV Office Visit (ANGEL ) ----- JAM TOSCANO ([id number]) 1965 M Date Time Provider Department 03/14/24 9:00 AM NIDIA WESTON During your visit today, we recorded the following information about you: Pulse Blood pressure Weight 97/minute 121/83 74.9 kg Nidia Weston, VAMP CREASER.SHEETER HELPER 04/11/2024 7:56 PM Signed Follow up Jam [...] work or invasive procedures No dental concerns [facility] [phone] No serious infections or fevers Stopped celebrex [...] arthritis invo (more content not included)... Normal [facility] XR HAND 3V PA/LAT/OBL BILon 03-14-2024 XR [...] to prior. Left hand metallic foreign body. Supervisor Matrix: CODY Transcribe Date/Time: Mar 14 2024 1:31P Dictated by : HORACIO DAWSON MD This examination was interpreted and the report reviewed and electronically signed by: HORACIO DAWSON MD on Mar 14 2024 5:53PM EST [id number] Normal [facility] XR Hand - bilateral PA and L ateral and Obliqueon 03-14-2024 IMPRESSION: Severe changes of chronic inflammatory arthritis, similar to prior. Left hand metallic foreign body. Supervisor Matrix: CODY Transcribe Date/Time: Mar 14 2024 1:31P Dictated by : HORAICO DAWSON MD This examination was interpreted and [...] to prior. Left hand metallic foreign body. Supervisor Matrix: PSCB Transcribe Date/Time: Mar 14 2024 1:31P Dictated by : HORACIO DAWSON MD This examination was interpreted and the report reviewed and electronically signed by: HORACIO DAWSON MD on Mar 14 2024 5:53PM [facility] Radiology Study observation (narrative) Franky abbott [facility] XR Hand - bilateral PA and L ateral and ObliqueOrdered By: Ccf Provider on 03-14-2024 [facility] Consent for Procedure/Surger yon 03-07-2024 Consent for Procedure/Surgery [id number]#1.00TIFF Normal [facility] Ambulatory Visit Summaryon 0 03-04-2024 Ambulatory [...] With: Ricky ROBLERO, Luis Antonio Tiwari Where: [facility] Invalid Interpretation Code History of colon polyps [facility] Gastroenterology Office/Clin ic Noteon 03-04-2024 Gastroenterology Office/Clinic Note Chief Complaint universal UC HPI Staff Patient is a 58 year old male who presents today for a follow up to Colonoscopy on 02/26/24. Still taking Entyvio q8 weeks. Last visit 12/11/23 w/Dr. García: Assessment/Plan 1. Crowley ulcerative colitis (K51.00: Ulcerative (chronic) pancolitis without [...] for now, follows with Dr. Valente at [place] For PCP, please make sure patient is [...] 89.5 fL (03/02/24) Chloride: 107 mmol/L (03/02/24) Grady Absolute: 0.5 E9/L (03/02/24) CO2: 27 mmol/L (03/02/24) Grady Auto: 8.2 % (03/02/24) Creatinine: 0.8 mg/dL [...] History of Present Illness Still taking Entyvio q8wvwyz, patient states this is the best hes [...] 126/80 HT (more content not included)... Normal [facility] Comment on above: Result Comment: Elec tronically Signed By: Ricky ROBLERO, Luis Antonio Tiwari\.br\Date and Time Signed: 03/04/24 09:28 EDT\.br\Electronically Co-Signed By: Naz Gupta MA\.br\Date and Time Co-Signed: 03/04/24 09:23 EDT IntraOperative Documentson 0 03-04-2024 IntraOperative Documents [id number]#1.00TIFF Normal [facility] CBC w/ Auto Diffon 4 Basophils/100 WBC (Bld) 0.6 % Normal 0.0-2.0 [facility] Comment on above: Performed By: #### 2 882921, 9989322, [id number] #### [facility] [address] [place] [address] Basophils/Leukocytes Auto (Bld) [Pure # fraction] 0.0 E9/L Normal 0.0-0.2 [facility] Comment on above: Performed By: #### 2 320354, 9199788, [id number] #### [facility] [address] [place] [address] Eosinophils (Bld) [#/Vol] 0.0 E9/L Normal 0.0-0.5 [facility] Comment on above: Performed By: #### 2 757681, 0354620, 43463218 #### [facility] [address] [place] [address] Eosinophils/100 WBC (Bld) 0.0 % Normal 0.0-8.0 [facility] Comment on above: Performed By: #### 2 913281, 8468841, 64522115 #### [facility] [address] [place] [address]70[address] Erythrocyte distribution width (RBC) [Ratio] 15.1 % High 10.9-14.2 [facility] Comment on above: Performed By: #### 2 934172, 0356954, 36991075 #### [facility] [address] [place] [address]6865 Hematocrit (Bld) [Volume fraction] 34.5 % Low 37.7-49.0 [facility] Comment on above: Performed By: #### 2 365058, 9046984, 69844170 #### [facility] [address] [place] [address] Hemoglobin (Bld) [Mass/Vol] 11.3 g/dL Low 13.5-17.5 [facility] Comment on above: Performed By: #### 2 345640, 1385539, 24007720 #### [facility] [address] [place] [address] Lymphocytes (Bld) [#/Vol] 1.8 E9/L Normal 1.0-4.0 [facility] Comment on above: Performed By: #### 2 873997, 4862904, 06088935 #### [facility] [address] [place] [address] 38786 Lymphocytes/100 WBC (Bld) 27.6 % Normal 14.0-50.0 [facility] Comment on above: Performed By: #### 2 094807, 7736751, 54903522 #### [facility] [address] [place] [address] 74134 MCH (RBC) [Entitic mass] 29.4 pg Normal 27.0-34.0 [facility] Comment on above: Performed By: #### 2 036186, 2724635, 72850661 #### [facility] [address] [place] [address] 65107 MCHC (RBC) [Mass/Vol] 32.9 g/dL Normal 31.4-36.0 [facility] Comment on above: Performed By: #### 2 217138, 9410679, 84886359 #### [facility] [address] [place] [address] 16961 MCV (RBC) [Entitic vol] 89.5 fL Normal 80.0-100.0 [facility] Comment on above: Performed By: #### 2 278508, 5777626, 33250678 #### [facility] [address] [place] [address] 299[address] Monocytes (Bld) [#/Vol] 0.5 E9/L Normal 0.2-1.0 [facility] Comment on above: Performed By: #### 2 536896, 5943065, 69252845 #### [facility] [address] [place] [address]3579 Neutrophils (Bld) [#/Vol] 4.2 E9/L Normal 2.0-7.5 [facility] Comment on above: Performed By: #### 2 113256, 4726328, 47570016 #### [facility] [address] [place] [address] 03591 Neutrophils/100 WBC (Bld) 63.6 % Normal 36.0-75.0 [facility] Comment on above: Performed By: #### 2 077328, 9645343, 46560040 #### [facility] [address] [place] [address] Platelet 344.0 E9/L Normal 150.0-500. 0 [facility] Comment on above: Performed By: #### 2 594160, 3215155, 53278005 #### [facility] [address] [place] [address] Platelet mean volume (Bld) [Entitic vol] 6.9 fL Normal 6.4-10.8 [facility] Comment on above: Performed By: #### 2 181343, 5149197, 49670888 #### [facility] [address] [place] [address] 10694 RBC (Bld) [#/Vol] 3.9 E12/L Low 4.3-5.9 [facility] Comment on above: Performed By: #### 2 803286, 4805319, 31317439 #### [facility] [address] [place] [address] 30227 WBC corrected for nucl RBC Auto (Bld) [#/Vol] 6.6 E9/L Normal 4.0-11.0 [facility] Comment on above: Performed By: #### 2 743214, 0581159, 96312424 #### [facility] [address] [place] [address] CMPon 03-02-2024 Albumin [Mass/Vol] 4.0 g/dL Normal 3.3-5.0 [facility] Comment on above: Performed By: #### 2 792295, 8676383, 34339825 #### [facility] [address] [place] [address] 17252 Albumin/Globulin (S) [Mass conc ratio] 1.3 Normal 1.1-2.2 [facility] Comment on above: Performed By: #### 2 664347, 6946188, 14122506 #### [facility] [address] [place] [address] 24710 ALP [Catalytic activity/Vol] 139 Int._Unit/L High 21-98 [facility] Comment on above: Performed By: #### 2 288246, 4099655, 75038074 #### [facility] [address] [place] [address] ALT No additional P-5'-P [Catalytic activity/Vol] 20 Int._Unit/L Normal 6-46 [facility] Comment on above: Performed By: #### 2 249907, 5013253, 96157039 #### [facility] [address] [place] [address] Anion gap [Moles/Vol] 11 mmol/L Normal 6-16 [facility] Comment on above: Performed By: #### 2 335373, 3506576, 77463011 #### [facility] [address] [place] [address] AST [Catalytic activity/Vol] 25 Int._Unit/L Normal 5-43 [facility] Comment on above: Performed By: #### 2 027350, 1145319, 38159951 #### [facility] [address] [place] [address] Bilirubin [Mass/Vol] 0.3 mg/dL Normal 0.0-1.1 [facility] Comment on above: Performed By: #### 2 136933, 9462989, 94882783 #### [facility] [address] [place] [address] Calcium [Mass/Vol] 9.4 mg/dL Normal 8.9-11.1 [facility] Comment on above: Performed By: #### 2 785086, 4970036, 34063716 #### [facility] [address] [place] [address] Chloride [Moles/Vol] 107 mmol/L Normal 101-111 [facility] Comment on above: Performed By: #### 2 127555, 1820995, 29710391 #### [facility] [address] [place] [address] CO2 [Moles/Vol] 27 mmol/L Normal 21-31 [facility] Comment on above: Performed By: #### 2 547638, 2122920, 52949442 #### [facility] [address] [place] [address] Creatinine [Mass/Vol] 0.8 mg/dL Normal 0.5-1.3 [facility] Comment on above: Performed By: #### 2 375787, 1512341, 74982225 #### [facility] [address] [place] [address] Globulin (S) [Mass/Vol] 3.0 g/dL Normal 1.4-4.0 [facility] Comment on above: Performed By: #### 2 409448, 2914493, 29372499 #### [facility] [address] [place] [address] Glucose [Mass/Vol] 97 mg/dL Normal 55-199 [facility] Comment on above: Performed By: #### 2 618165, 0200039, 82030384 #### [facility] [address] [place] [address] Potassium [Moles/Vol] 3.6 mmol/L Normal 3.5-5.3 [facility] Comment on above: Performed By: #### 2 649803, 2114896, 76673413 #### [facility] [address] [place] [address] Protein [Mass/Vol] 7.0 g/dL Normal 6.0-7.8 [facility] Comment on above: Performed By: #### 2 260697, 4601526, 44481283 #### [facility] [address] [place] [address] Sodium [Moles/Vol] 141 mmol/L Normal 135-145 [facility] Comment on above: Performed By: #### 2 136199, 3482121, 63369330 #### [facility] [address] [place] [address] Urea nitrogen [Mass/Vol] 12 mg/dL Normal 5-21 [facility] Comment on above: Performed By: #### 2 734784, 1111031, 88618451 #### [facility] [address] [place] [address] Urea nitrogen/Creatinine [Mass ratio] 15 No Units Normal 10-20 [facility] Comment on above: Performed By: #### 2 929817, 9238006, 65251750 #### [facility] [address] [place] [address] Consent for Treatmenton 02-14 Consent for Treatment [id number]#1.00TIFF Normal [facility] Progress Note-Physicianon Progress Note-Physician Patient: JAM QUINTANA MRN: Age: 58 years Sex: Male : 1965 Associated Diagnoses: None Author: MD Zabala Ahmad F Postoperative Information Postoperative disposition: Postoperative disposition: To PACU. Optimetrix number: Optimetrix number [id number]. Anesthetic utilized: General. Health Status Allergies: Allergic [...] meets criteria ( To home ). Normal [facility] Comment on above: Result Comment: Elec [...] Daily, # 10 cap(s), Refills(s) 0, [id number], cm, 10/23/23 13:41:00 EST, Height/Length Dosing, 75.1, kg, 10/23/23 13:41:00 EST, Weight Dosing Humira Pen Crohns/Ulcer Colitis/Hidradenitis Suppurativa Starterr Pack 80 mg/0.8 mL subcutaneous ki...: See Instructions, Inject 160 mg on day one, Inject 80 mg on day 15, # 1 kit(s), Refills(s) 0, Pharmacy: [facility]/pharmacy #[id number], 167, cm, 09/04/20 8:15:00 EDT, Height/Length Dosing, 75.8, kg, 09/04/20 8:15:00 EDT, Weight Dosing Zofran ODT 4 mg Tab-Dis: 4 mg = 1 tab(s), Oral, q8hr, PRN Nausea/Vomiting, # 30 tab(s), Refills(s) 0, Pharmacy: [facility]/pharmacy #[id number], 168, cm, 10/23/23 13:41:00 EST, Height/Length Dosing, 75.1, kg, 10/23/23 13:41:00 EST, Weight Dosing mesalamine 4 g/60 mL rectal enema: = 1 EA, Rectal, Once a day (at bedtime), # 30 EA, Refills(s) 3, Pharmacy: [facility]/pharmacy #6177, 168, cm, 03/23/23 8:23:00 EDT, Height/Length Dosing, 81.1, kg, 03/23/23 8:23:00 EDT, Weight Dosing mesalamine 4 g/60 mL rectal enema: = 1 EA, Rectal, Once a day (at bedtime), # 30 EA, Refills(s) 6, [facility], 168, cm, 10/16/22 13:49:00 EST, Height/Length Dosing, 80.6, kg, 10/16/22 13:49:00 EST, Weight Dosing omeprazole 40 mg Cap-DR: 40 mg = 1 cap(s), Oral, Daily, # 30 cap(s), Refills(s) 11, [id number], 167, cm, 09/04/20 8:15:00 EDT, Height/Length Dosing, 75.8, kg, 09/04/20 8:15:00 EDT, Weight Dosing sulfasalazine 500 mg oral enteric coated tablet: 1,000 mg = 2 tab(s), Oral, QID, X 30 day(s), # 240 tab(s), Refills(s) 11, [id number], 168, cm, 04/01/23 8:58:00 EDT, [...] list: All Problems Hyperlipemia / SNOMED CT 61957031 / Confirmed Rectal bleed / SNOMED CT 288875213 / Confirmed Heartburn / SNOMED CT 01389257 / Confirmed Ulcerative colitis, universal / SNOMED CT 9053754720 / Confirmed Bladder stone / SNOMED CT 254547023 / Confirmed BPH with urinary obstruction / SNOMED CT 6812436940 / Confirmed Incomplete bladder emptying / SNOMED CT 596387527 / Confirmed Gross hematuria / SNOMED CT 299197402 / Confirmed Kidney stones / SNOMED CT 096703105 / Confirmed Bladder mass / SNOMED CT 4682743529 / Confirmed Urethral stone / SNOMED CT 22527275 / Confirmed Prostate calculus / SNOMED CT 765955203 / Confirmed Continuous severe abdominal pain / SNOMED CT 37982675 / Confirmed Hematochezia / SNOMED CT 8938015423 / Confirmed Acute diarrhea / SNOMED CT 8506573189 / Confirmed Crowley ulcerative colitis / SNOMED CT 9093911826 / Confirmed Adenomatous colon polyp / SNOMED CT 2308993175 / Confirmed Resolved: Extreme obesity / SNOMED CT 37D95583-0KL2-11J1-J327-4 [id number] Resolved: Ulcerative colitis / SNOMED CT 274543444 Canceled: Ulcerative colitis / SNOMED CT 849525750 Histories Past Medical History: Resolved Extreme obesity (54E59213-3DE5-40S0-O118- [id number]): Resolved. Ulcerative colitis (690463630): Resolved. Family History: Procedure history: Colonoscopy (620130958) on 02/26/2024 at 58 Years. Colonoscopy (504876680) on 03/23/2023 at 57 Years. Cystoscopy (22906412) on 02/04/2021 at 55 Years. Colonoscopy (781770983). right hip replacement (239642305). replacement on both knees (598714721). Hernia repair (98586793). Social History Soc (more content not included)... Normal [facility] Comment on above: Result Comment: Elec tronically Signed By: MD Vj, Rigoberto Espinosa\.br\Date and Time Signed: 03/02/24 14:21 EDT eGFRon 03-02-2024 eGFR 101 mL/min/1.73 m2 Normal >=59 [facility] Comment on above: Order Comment: Order added by Discern Expert. Performed By: #### 2 082796, 7536068, 85377042 #### [facility] [address] [place] [address] Consenton 02-29-2024 Consent [id number]#1.00TIFF Normal [facility] Discharge Instructionson Discharge Instructions [id number]#1.00TIFF Normal [facility] Main OR Intraoperative Recor don 02-29-2024 Main OR Intraoperative Record IntraOp Document Type FT Summary Primary Physician: Luis Antonio García MD Finalized Date/Time: 02/29/24 10:32:28 Pt. Name: JAM TOSCANO/Sex: 1965 Male Med Rec #: [id number] Physician: Luis Antonio García MD Financial #: [id number] Pt. Type: O Room/Bed: / Admit/Disch: 02/26/24 [...] RN Role Performed EDGAR Surgeon - Primary Drilling Manager - Primary Time In 02/26/24 10:07:00 02/26/24 [...] Yes Primary Surgeon Ricky ROBLERO, Luis Antonio Twiari Start 02/26/24 10:11:00 Stop 02/26/24 10:30:00 Anesthesia [...] and tissue Entry 1 Skin Integrity Intact, Pangburn, Warm, and Skin Abnormality No Dry Outcomes Met? Yes Last Modified By: Donna Kumar RN 02/26/24 10:16:00 Post-Care Text: The patient is free from signs and symptoms of injury caused by extraneous objects Patient Positioning FT Pre-Care Text: Identifies physical alterations that require additional precautions for proce (more content not included)... [facility] Postoperative Documentson Postoperative Documents [id number]#1.00TIFF [facility] Consent for Treatmenton 02-14 Consent for Treatment [id number]#1.00TIFF Normal [facility] Discharge Instructionson Discharge Instructions JAM TOSCANO [...] For Persistent or heavy bleeding Pharmacy Information [facility] [place] Discharge Instructions Discharge Instructions New Follow Up Appointments after Discharge Follow Up with Luis Antonio García When: Within 1 to 2 weeks Comments: Call for any problems. Where: [facility] [address], [address] [address]- [phone] Business (1) Medications What How Much When [...] (Entyvio 300 mg intravenous injection) See instructions Crowley ulcerative colitis 300 mg/ kg at week [...] Prostate calculus Rectal bleed Ulcerative colitis, universal Crowley ulcerative colitis Urethral stone Historical - Any [...] referred to (more content not included)... Normal [facility] Comment on above: Result Comment: Elec [...] history and physical Documented on chart. Colonoscopy (170505435) on 03/23/2023 at 57 Years. Cystoscopy ([id number]) on 02/04/2021 at 55 Years. Colonoscopy ([id number]). right hip replacement (982276429). replacement on both knees (634103917). Hernia repair (76494516).. Past Medical History Resolved Extreme obesity ([id number]): Resolved. Ulcerative colitis (606793215): Resolved.. Family History . Procedure History Colonoscopy ([id number]) on 03/23/2023 at 57 Years. Cystoscopy (21261161) on 02/04/2021 at 55 Years. Colonoscopy (102118790). right hip replacement (649360231). replacement on both knees (422387057). Hernia repair (81523045).. Colorectal neoplasm risk assessment High risk UC. [...] Daily, # 10 cap(s), Refills(s) 0, Pharmacy: [facility]/pharmacy #[id number], 168, cm, 10/23/23 13:41:00 EST, Height/Length Dosing, 75.1, kg, 10/23/23 13:41:00 EST, Weight Dosing Humira Pen Crohns/Ulcer Colitis/Hidradenitis Suppurativa Starterr Pack 80 mg/0.8 mL subcutaneous ki...: See Instructions, Inject 160 mg on day one, Inject 80 mg on day 15, # 1 kit(s), Refills(s) 0, Pharmacy: [facility]/pharmacy #6177, 167, cm, 09/04/20 8:15:00 EDT, Height/Length Dosing, 75.8, kg, 09/04/20 8:15:00 EDT, Weight Dosing Zofran ODT 4 mg Tab-Dis: 4 mg = 1 tab(s), Oral, q8hr, PRN Nausea/Vomiting, # 30 tab(s), Refills(s) 0, Pharmacy: [facility]/pharmacy #6177, 168, cm, 10/23/23 13:41:00 EST, Height/Length Dosing, 75.1, kg, 10/23/23 13:41:00 EST, Weight Dosing mesalamine 4 g/60 mL rectal enema: = 1 EA, Rectal, Once a day (at bedtime), # 30 EA, Refills(s) 3, [facility] 168, cm, 03/23/23 8:23:00 EDT, Height/Length Dosing, 81.1, kg, 03/23/23 8:23:00 EDT, Weight Dosing mesalamine 4 g/60 mL rectal enema: = 1 EA, Rectal, Once a day (at bedtime), # 30 EA, Refills(s) 6, [facility] 168, cm, 10/16/22 13:49:00 EST, Height/Length Dosing, 80.6, kg, 10/16/22 13:49:00 EST, Weight Dosing omeprazole 40 mg Cap-DR: 40 mg = 1 cap(s), Oral, Daily, # 30 cap(s), Refills(s) 11, [facility] 167, cm, 09/04/20 8:15:00 EDT, Height/Length Dosing, 75.8, kg, 09/04/20 8:15:00 EDT, Weight Dosing sulfasalazine 500 mg oral enteric coated tablet: 1,000 mg = 2 tab(s), Oral, QID, X 30 day(s), # 240 tab(s), Refills(s) 11, [id number], 168, cm, 04/01/23 8:58:00 EDT, [...] the col (more content not included)... Normal [facility] Comment on above: Result Comment: Elec tronically Signed By: Luis Antonio García MD\.br\Date and Time Signed: 02/26/24 10:37 EDT Inpatient Patient Summaryon 02-26-2024 Inpatient Patient Summary (Inserted Imag e. Unable to display) [place] [id number] [facility] Clinical Discharge Instructions PERSON INFORMATION [...] every 8 weeks. Refills: 6. Comment: Normal [facility] Main OR PACU I Recordon 02-14 Main OR PACU I Record PACU Phase I Docum ent Type FT Summary Primary Physician: Luis Antonio García MD Finalized Date/Time: 02/26/24 11:54:56 Pt. Name: JAM TOSCANO/Sex: 1965 Male Med Rec #: [id number] Physician: Luis Antonio García MD Financial #: [id number] Pt. Type: O Room/Bed: / Admit/Disch: 02/26/24 [...] By: Lesli May RN 02/26/24 11:54 Normal [facility] Main OR Preoperative Recordo n 02-26-2024 Main OR Preoperative Record Holding Area Document Type FT Summary Primary Physician: Luis Antonio García MD Finalized Date/Time: 02/26/24 08:41:02 Pt. Name: JAM TOSCANO/Sex: 1965 Male Med Rec #: [id number] Physician: Luis Antonio García MD Financial #: [id number] Pt. Type: O Room/Bed: / Admit/Disch: 02/26/24 [...] By: Lauren Rosado RN 02/26/24 08:41 Normal [facility] Monitor Recordon 02-26-2024 Monitor Record [id number] Normal [facility] Monitor Record [id number]#[id number] Normal [facility] Outpatient Surgery Discharge Instructionon 02-26-2024 Outpatient Surgery Discharge Instruction [place] [id number] Patient Discharge Instructions PERSON INFORMATION Name: JAM TOSCANO Date of : 1965 Current Date: 02/26/2024 09:58:54 PHYSICIANS Admitting Physician: Ricky ROBLERO, Luis Antonio Tiwari Discharge Diagnosis: Chronic ulcerative colitis JMA TOSCANO has been given the following list [...] serve you. Thank you for choosing [facility] HERE ARE THE MEDICATION CHANGES THAT [...] EDUCATION INFORMATION Instructions: Medication Leaflets: [facility] Patient Education - Texton 0 02-26-2024 [...] unsweetened, w/added ascorbic acid 1 cup 0.5 Morrow 1 cup 0.7 Vegetables Cooked Green beans 1 cup 4.0 Carrots 1/2 cup sliced 2.3 Peas 1 cup 8.8 Potato (baked, with skin) 1 medium potato 3.8 Raw Catlin (with peel) 1 cucumber 1.5 Lettuce 1 [...] 8.7 Peanuts 1/2 cup 7.9 [facility]. SEEK IMMEDIATE MEDICAL CARE IF: You [...] Information adapted from: ExitCare? Patient Information ?2009 [employer]. [employer] 2012 [email or web address] Colonoscopy Care After Surgery Please read the [...] and progress (more content not included)... Normal [facility] Esau 02-11-2024 CANDIE Telephone (ANGEL) ----- JAM TOSCANO ([id number]) 1965 M Date Time Provider Department 02/11/24 NIDIA WESTON During your visit today, we recorded the following information about you: Nidia Weston, VAMP CREASER.SHEETER HELPER 02/11/2024 2:48 PM Signed Please call patient [...] Abs Lymph 1.00 - 4.00 k/uL 1.84 Grady% % 7.3 Abs Grady <0.87 k/uL 0.59 Eosin% % 0.1 Abs [...] Date Reviewed: 01/12/2024 Reviewed by: Nidia Weston, ADEOLA.SHEETER HELPER - Fully Assessed Primary Visit Diagnosis:Elevated alkaline phosphatase level [R74.8] Order(s):CONSULT TO HEPATOLOGY [[id number]] Order #: [id number]: 1 FUTURE Prescriptions as of 02/16/2024 - [...] Status:Closed by ESTEPHANIA DEVINE on 02/16/24 Normal [facility] ALKALINE PHOSPHATASE ISOENZY MES (P)on 01-12-2024 ALK PHOS BONE % 16.2 % Normal 10.7-68.3 [facility] Comment on above: Order Comment: Speci men Type: BLOOD SPECIMENOrdering Facility: [facility] Address: [address] [place] [address] Performed By: #### A LKISOP ####[facility] LABIA [id number] [place] [address] [place] ALK PHOS LIVER % 83.8 % Normal 26.0-86.2 [facility] Comment on above: Order Comment: Latoyai men Type: BLOOD SPECIMENOrdering Facility: [facility] Address: [address] [place] [address] Performed By: #### A LKISOP ####[facility] LABCLIA [id number] [place] [address] [place] BONE FRACTION 34.2 U/L Normal 12.9-52.6 [facility] Comment on above: Order Comment: Latoyai men Type: BLOOD SPECIMENOrdering Facility: [facility] Address: [address] [place] [address] Performed By: #### A LKISOP ####[facility] LABIA [id number] [place] [address] [place] INTESTINE FRACTION 0.0 U/L Normal 0.0-16.3 [facility] Comment on above: Order Comment: Speci men Type: BLOOD SPECIMENOrdering Facility: [facility] Address: [address] [place] [address] Performed By: #### A LKISOP ####[facility] LABCLIA [id number] [place] [address] [place] LIVER FRACTION 176.8 U/L High 16.0-69.3 [facility] Comment on above: Order Comment: Speci men Type: BLOOD SPECIMENOrdering Facility: [facility] Address: [address] [place] [address] Performed By: #### A LKISOP ####[facility] LABIA [id number] [place] [address] [place] Neutrophils/100 WBC (Bld) 0.0 % Normal 0.0-24.2 [facility] Comment on above: Order Comment: Speci men Type: BLOOD SPECIMENOrdering Facility: [facility] Address: [address] [place] [address] Performed By: #### A LKISOP ####[facility] LABIA [id number] [place] [address] [place] ALP SerPl-cCncon 01-12-2024 ALP [Catalytic activity/Vol] 211 U/L High 38-113 [facility] Comment on above: Order Comment: Speci men Type: BLOOD SPECIMENOrdering Facility: [facility] Address: [address] [place] [address] Performed By: #### 6 768-6, 1988-03 ####[facility] LABIA [id number] [place] [address] [place] CBC W Auto Differential pane l (Bld)on 01-12-2024 Basophils (Bld) [#/Vol] 0.04 10*3/uL Normal <0.11 [facility] Comment on above: Order Comment: Speci men Type: BLOOD SPECIMENOrdering Facility: [facility] Address: [address] [place] [address] Performed By: #### 4 537-7, 59239-9 ####[facility] LABCLIA [id number] [place] [address] [place] Basophils/100 WBC (Bld) 0.5 % Normal [facility] Comment on above: Order Comment: Speci men Type: BLOOD SPECIMENOrdering Facility: [facility] Address: [address] [place] [address] Performed By: #### 4 537-7, 60750-7 ####[facility] LABCLIA [id number] [place] [address] [place] Differential cell count method Nom (Bld) Auto Normal [facility] Comment on above: Order Comment: Speci men Type: BLOOD SPECIMENOrdering Facility: [facility] Address: [address] [place] [address] Performed By: #### 4 537-7, 55416-2 ####[facility] LABCLIA [id number] [place] [address] [place] Eosinophils (Bld) [#/Vol] 10*3/uL Normal <0.46 [facility] Comment on above: Order Comment: Speci men Type: BLOOD SPECIMENOrdering Facility: [facility] Address: [address] [place] [address] Performed By: #### 4 537-7, 02559-8 ####[facility] LABCLIA [id number] [place] [address] [place] Eosinophils/100 WBC (Bld) 0.1 % Normal [facility] Comment on above: Order Comment: Speci men Type: BLOOD SPECIMENOrdering Facility: [facility] Address: [address] [place] [address] Performed By: #### 4 537-7, 90918-3 ####[facility] LABCLIA [id number] [place] [address] [place] Erythrocyte distribution width (RBC) [Ratio] 15.0 % Normal 11.5-15.0 [facility] Comment on above: Order Comment: Speci men Type: BLOOD SPECIMENOrdering Facility: [facility] Address: [address] [place] [address] Performed By: #### 4 537-7, 13418-2 ####[facility] LABCLIA [id number] [place] [address] [place] Hematocrit (Bld) [Volume fraction] 43.6 % Normal 39.0-51.0 [facility] Comment on above: Order Comment: Speci men Type: BLOOD SPECIMENOrdering Facility: [facility] Address: [address] [place] [address] Performed By: #### 4 537-7, 99786-7 ####[facility] LABIA [id number] [place] [address] [place] Hemoglobin (Bld) [Mass/Vol] 13.9 g/dL Normal 13.0-17.0 [facility] Comment on above: Order Comment: Speci men Type: BLOOD SPECIMENOrdering Facility: [facility] Address: [address] [place] [address] Performed By: #### 4 537-7, 04036-6 ####[facility] LABIA [id number] [place] [address] [place] Immature granulocytes (Bld) [#/Vol] 10*3/uL Normal <0.10 [facility] Comment on above: Order Comment: Speci men Type: BLOOD SPECIMENOrdering Facility: [facility] Address: [address] [place] [address] Performed By: #### 4 537-7, 30875-4 ####[facility] LABCLIA [id number] [place] [address] [place] Immature granulocytes/100 WBC (Bld) 0.2 % Normal [facility] Comment on above: Order Comment: Speci men Type: BLOOD SPECIMENOrdering Facility: [facility] Address: [address] [place] [address] Performed By: #### 4 537-7, 44668-5 ####[facility] LABCLIA [id number] [place] [address] [place] Lymphocytes (Bld) [#/Vol] 1.84 10*3/uL Normal 1.00-4.0 0 [facility] Comment on above: Order Comment: Speci men Type: BLOOD SPECIMENOrdering Facility: [facility] Address: [address] [place] [address] Performed By: #### 4 537-7, 25909-3 ####[facility] LABCLIA [id number] [place] [address] [place] Lymphocytes/100 WBC (Bld) 22.9 % Normal [facility] Comment on above: Order Comment: Speci men Type: BLOOD SPECIMENOrdering Facility: [facility] Address: [address] [place] [address] Performed By: #### 4 537-7, 88917-0 ####[facility] LABCLIA [id number] [place] [address] [place] MCH (RBC) [Entitic mass] 29.5 pg Normal 26.0-34.0 [facility] Comment on above: Order Comment: Speci men Type: BLOOD SPECIMENOrdering Facility: [facility] Address: [address] [place] [address] Performed By: #### 4 537-7, 05375-5 ####[facility] LABCLIA [id number] [place] [address] [place] MCHC (RBC) [Mass/Vol] 31.9 g/dL Normal 30.5-36.0 [facility] Comment on above: Order Comment: Speci men Type: BLOOD SPECIMENOrdering Facility: [facility] Address: [address] [place] [address] Performed By: #### 4 537-7, 11424-9 ####[facility] LABCLIA [id number] [place] [address] [place] MCV (RBC) [Entitic vol] 92.6 fL Normal 80.0-100.0 [facility] Comment on above: Order Comment: Speci men Type: BLOOD SPECIMENOrdering Facility: [facility] Address: [address] [place] [address] Performed By: #### 4 537-7, 97602-7 ####[facility] LABCLIA [id number] [place] [address] [place] Monocytes (Bld) [#/Vol] 0.59 10*3/uL Normal <0.87 [facility] Comment on above: Order Comment: Speci men Type: BLOOD SPECIMENOrdering Facility: [facility] Address: [address] [place] [address] Performed By: #### 4 537-7, 83081-8 ####[facility] LABCLIA [id number] [place] [address] [place] Monocytes/100 WBC (Bld) 7.3 % Normal [facility] Comment on above: Order Comment: Speci men Type: BLOOD SPECIMENOrdering Facility: [facility] Address: [address] [place] [address] Performed By: #### 4 537-7, 33300-9 ####[facility] LABCLIA [id number] [place] [address] [place] Neutrophils (Bld) [#/Vol] 5.55 10*3/uL Normal 1.45-7.5 0 [facility] Comment on above: Order Comment: Speci men Type: BLOOD SPECIMENOrdering Facility: [facility] Address: [address] [place] [address] Performed By: #### 4 537-7, 34748-7 ####[facility] LABCLIA [id number] [place] [address] [place] Neutrophils/100 WBC (Bld) 69.0 % Normal [facility] Comment on above: Order Comment: Speci men Type: BLOOD SPECIMENOrdering Facility: [facility] Address: [address] [place] [address] Performed By: #### 4 537-7, 27312-3 ####[facility] LABIA [id number] [place] [address] [place] Nucleated RBC (Bld) [#/Vol] 10*3/uL Normal <0.01 [facility] Comment on above: Order Comment: Speci men Type: BLOOD SPECIMENOrdering Facility: [facility] Address: [address] [place] [address] Performed By: #### 4 537-7, 72398-2 ####[facility] LABIA [id number] [place] [address] [place] Nucleated RBC/100 WBC (Bld) [Ratio] 0.0 /100 WBC Normal [facility] Comment on above: Order Comment: Speci men Type: BLOOD SPECIMENOrdering Facility: [facility] Address: [address] [place] [address] Performed By: #### 4 537-7, 52838-2 ####[facility] LABIA [id number] [place] [address] [place] Platelet mean volume (Bld) [Entitic vol] 9.4 fL Normal 9.0-12.7 [facility] Comment on above: Order Comment: Speci men Type: BLOOD SPECIMENOrdering Facility: [facility] Address: [address] [place] [address] Performed By: #### 4 537-7, 47298-9 ####[facility] LABIA [id number] [place] [id number] [place] Platelets (Bld) [#/Vol] 339 10*3/uL Normal 150-400 [facility] Comment on above: Order Comment: Speci men Type: BLOOD SPECIMENOrdering Facility: [facility] Address: [address] [place] [address] Performed By: #### 4 537-7, 52032-0 ####[facility] LABIA [id number] [place] [address] [place] RBC (Bld) [#/Vol] 4.71 10*6/uL Normal 4.20-6.00 [facility] Comment on above: Order Comment: Speci men Type: BLOOD SPECIMENOrdering Facility: [facility] Address: [address] [place] [address] Performed By: #### 4 537-7, 46059-0 ####[facility] [id number] [place] [address] [place] WBC (Bld) [#/Vol] 8.05 10*3/uL Normal 3.70-11.00 [facility] Comment on above: Order Comment: Speci men Type: BLOOD SPECIMENOrdering Facility: [facility] Address: [address] [place] [address] Performed By: #### 4 537-7, 15576-5 ####[facility] LABIA [id number] [place] [id number] [place] CNOVon 01-12-2024 CNOV Office Visit (ANGEL ) ----- JAM TOSCANO ([id number]) 1965 M Date Time Provider Department 01/12/24 10:30 AM NIDIA WESTON During your visit today, we recorded the following information about you: Pulse Blood pressure Weight 95/minute 132/88 74.7 kg Nidia Weston APRN.SHEETER HELPER 02/14/2024 11:31 PM Signed Follow up Jam Toscano is a very nice 58 year old male seen for Rheumatoid Arthritis and Osteoporosis Subjective: Patient reports: Low iron- following with Dr. Lomeli Has not been taking iron consistently Following with GI - Dr. Salmon in [place] Has scope scheduled February 25 Last visit [...] work or invasive procedures No dental concerns [facility] [phone] No serious infections or fevers Stopped celebrex [...] (primary e (more content not included)... Normal [facility] CRP SerPl-ncon 01-12-2024 CRP [Mass/Vol] 0.4 mg/dL Normal <0.9 [facility] Comment on above: Order Comment: Quinn felder Type: BLOOD SPECIMENOrdering Facility: [facility] Address: [address] [place] [address] Performed By: #### 6 768-6, 1988-03 ####[facility] LABCLIA [id number] [place] [address] [place] ESR Westergren method (Bld) [Velocity]on 01-12-2024 ESR (Bld) [Velocity] 34 mm/h High 0-15 [facility] Comment on above: Order Comment: Quinn felder Type: BLOOD SPECIMENOrdering Facility: [facility] Address: [address] [place] [address] Performed By: #### 4 537-7, 50682-7 ####[facility] LABCLIA [id number] [place] [address] [place] Consent for Procedure/Surger yon 12-14-2023 Consent for Procedure/Surgery [id number] Normal [facility] Ambulatory Visit Summaryon 0 12-11-2023 Ambulatory Visit Summary JAM TOSCANO :1965 Visit Date:12/11/2023 Ambulatory Visit Instructions Your Diagnosis Crowley ulcerative colitis Adenomatous colon polyp Your Care [...] (Entyvio 300 mg intravenous injection) See instructions Crowley ulcerative colitis 300 mg/ kg at week [...] Prostate calculus Rectal bleed Ulcerative colitis, universal Crowley ulcerative colitis Urethral stone Historical - Any [...] BIOPSY: ? COLONIC MUCOSA WITHIN NORMAL LIMITS. [facility] [place] c/o abdominal pain d/c diagnosis of Kidney stones, CT and labs completed. [facility] [place] [place] for c/o nausea [...] 87.3 fL (11/27/23) Chloride: 105 mmol/L (11/27/23) Grady Absolute: 0.9 E9/L (11/27/23) CO2: 24 mmol/L (11/27/23) Grady Auto: 9.3 % (11/27/23) Creatinine: 0.7 mg/dL [...] WT: 165.88 lb BMI: 26.71 Assessment/Plan 1. Crowley ulcerative colitis (K51.00: Ulcerative (chronic) pancolitis without [...] 2018. W (more content not included)... Normal [facility] Comment on above: Result Comment: Elec tronically Signed By: Ricky ROBLERO, Luis Antonio Tiwari\.br\Date and Time Signed: 12/11/23 10:32 EST Esau 12-03-2023 CNPN Telephone (ANGEL) ----- RIMMAJAM ([id number]) 1965 M Date Time Provider Department 12/03/23 NIDIA WESTON During your visit today, we recorded the following information about you: Nidia Weston, VAMP CREASER.SHEETER HELPER 12/03/2023 12:08 AM Signed Please call patient [...] Abs Lymph 1.00 - 4.00 k/uL 2.11 Grady% % 7.6 Abs Grady <0.87 k/uL 0.82 Eosin% % 0.1 Abs [...] Date Reviewed: 12/01/2023 Reviewed by: Nidia Weston APRN.SHEETER HELPER - Fully Assessed Reason for Visit: Results [95] Primary Visit Diagnosis:Rheumatoid arthritis 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) [M05.79] Order(s):CBC + DIFF [SQCBCDIF] Order #: [id number] FUTURE C-REACTIVE PROTEIN (CRP) [SQCRP] Order #: [id number] FUTURE SED RATE WESTERGREN [SQWSR] Order #: [id number] FUTURE ALK PHOS ISOENZYM BL [SQALKISO] Order #: [id number] FUTURE Prescriptions as of 12/03/2023 - celecoxib [...] lisinopril (ZESTRIL, (more content not included)... Normal [facility] 25(OH)D3 SerPl-mCncon 2023 25-hydroxyvitamin D3 [Mass/Vol] 63.0 ng/mL Normal 31.0-80.0 [facility] Comment on above: Order Comment: Quinn felder Type: BLOOD SPECIMENOrdering Facility: [facility] Address: [address] [place] [address] Result Comment: Clas sification of 25 OH Vitamin D status: Deficiency/Insufficiency: < or = 30 ng/ml. Sufficiency/Optimal Levels: 31-80 ng/mL Toxicity: > 100 ng/mL. Test performed by chemiluminescent immunoassay. Performed By: #### 1 989-3 ####[facility] [id number] [address] [place] OF [facility] BLOOD TB SCREENon 12-01-2023 M. tuberculosis tuberculin stim IFN-g Ql (Bld) Negative Normal [facility] Comment on above: Order Comment: [facility] Type: BLOOD SPECIMENOrdering Facility: [facility] Address: [address] [place] [address] Performed By: #### I NFTBP ####[facility] [id number] [place] [address] [place] MITOGEN MINUS NIL 3.58 IU/mL Normal >=0.50 [facility] Comment on above: Order Comment: Quinn [facility] Type: BLOOD SPECIMENOrdering Facility: [facility] Address: [address] [place] [address] Performed By: #### I NFTBP ####[facility] [id number] [address] [place] [facility] TB GAMMA INTERPRETATION Infection with M . tuberculosis complex is unlikely. If latent tuberculosis infection is highly suspected, a negative result does not rule out the infection. Specimens from immunocompromised patients and those <5 years of age may show false negative results. In case of a contact investigation, please repeat 8-12 weeks after a known exposure. Normal [facility] Comment on above: Order Comment: Speci men Type: BLOOD SPECIMENOrdering Facility: [facility] Address: [address] [place] [address] Performed By: #### I NFTBP ####[facility] LABCLIA [id number] [place] [address] [place] TB NIL 0.04 IU/mL Normal <=8.00 [facility] Comment on above: Order Comment: Speci men Type: BLOOD SPECIMENOrdering Facility: [facility] Address: [address] [place] [address] Performed By: #### I NFTBP ####[facility] LABCLIA [id number] [place] [address] [place] TB1 AG MINUS NIL 0.00 IU/mL Normal <0.35 [facility] Comment on above: Order Comment: Speci men Type: BLOOD SPECIMENOrdering Facility: [facility] Address: [address] [place] [address] Performed By: #### I NFTBP ####[facility] LABCLIA [id number] [place] [address] [place] TB2 AG MINUS NIL 0.02 IU/mL Normal <0.35 [facility] Comment on above: Order Comment: Speci men Type: BLOOD SPECIMENOrdering Facility: [facility] Address: [address] [place] [address] Performed By: #### I NFTBP ####[facility] LABIA [id number] [place] [address] [place] CBC W Auto Differential pane l (Bld)on 12-01-2023 Basophils (Bld) [#/Vol] 0.05 10*3/uL Normal <0.11 [facility] Comment on above: Order Comment: Speci men Type: BLOOD SPECIMENOrdering Facility: [facility] Address: [address] [place], [place] [address] Performed By: #### 5 7021-8, 4536-7 ####[facility] LABCLIA [id number] [place] [address] [place] Basophils/100 WBC (Bld) 0.5 % Normal C [facility] Comment on above: Order Comment: Speci men Type: BLOOD SPECIMENOrdering Facility: [facility] Address: [address] [place] [address] Performed By: #### 5 7021-8, 4536-7 ####[facility] LABCLIA [id number] [place] [address] [place] Differential cell count method Nom (Bld) Auto Normal [facility] Comment on above: Order Comment: Speci men Type: BLOOD SPECIMENOrdering Facility: [facility] Address: [address] [place] [address] Performed By: #### 5 7021-8, 7 ####[facility] LABCLIA [id number] [place] [address] [place] Eosinophils (Bld) [#/Vol] 10*3/uL Normal <0.46 [facility] Comment on above: Order Comment: Speci men Type: BLOOD SPECIMENOrdering Facility: [facility] Address: [address] [place] [address] Performed By: #### 5 7021-8, 7 ####[facility] LABCLIA [id number] [place] [address] [place] Eosinophils/100 WBC (Bld) 0.1 % Normal [facility] Comment on above: Order Comment: Speci men Type: BLOOD SPECIMENOrdering Facility: [facility] Address: [address] [place] [address] Performed By: #### 5 7021-8, 4536-7 ####[facility] LABCLIA [id number] [place] [address] [place] Erythrocyte distribution width (RBC) [Ratio] 13.1 % Normal 11.5-15.0 [facility] Comment on above: Order Comment: Speci men Type: BLOOD SPECIMENOrdering Facility: [facility] Address: [address] [place] [address] Performed By: #### 5 7021-8, 7 ####[facility] LABCLIA [id number] [place] [address] [place] Hematocrit (Bld) [Volume fraction] 36.8 % Low 39.0-51.0 [facility] Comment on above: Order Comment: Speci men Type: BLOOD SPECIMENOrdering Facility: [facility] Address: [address] [place] [address] Performed By: #### 5 7021-8, 7 ####[facility] LABCLIA [id number] [place] [address] [place] Hemoglobin (Bld) [Mass/Vol] 11.6 g/dL Low 13.0-17.0 [facility] Comment on above: Order Comment: Speci men Type: BLOOD SPECIMENOrdering Facility: [facility] Address: [address] [place] [address] Performed By: #### 5 7021-8, 7 ####[facility] LABCLIA [id number] [place] [address] [place] Immature granulocytes (Bld) [#/Vol] 10*3/uL Normal <0.10 [facility] Comment on above: Order Comment: Speci men Type: BLOOD SPECIMENOrdering Facility: [facility] Address: [address] [place] [address] Performed By: #### 5 7021-8, 7 ####[facility] LABCLIA [id number] [place] [address] [place] Immature granulocytes/100 WBC (Bld) 0.2 % Normal [facility] Comment on above: Order Comment: Speci men Type: BLOOD SPECIMENOrdering Facility: [facility] Address: [address] [place] [address] Performed By: #### 5 7021-8, 4537-7 ####[facility] LABCLIA [id number] [place] [address] [place] Lymphocytes (Bld) [#/Vol] 2.11 10*3/uL Normal 1.00-4.0 0 [facility] Comment on above: Order Comment: Speci men Type: BLOOD SPECIMENOrdering Facility: [facility] Address: [address] [place] [address] Performed By: #### 5 7021-8, 4536-7 ####[facility] LABCLIA [id number] [place] [address] [place] Lymphocytes/100 WBC (Bld) 19.5 % Normal [facility] Comment on above: Order Comment: Speci men Type: BLOOD SPECIMENOrdering Facility: [facility] Address: [address] [place] [address] Performed By: #### 5 7021-8, 4536-7 ####[facility] LABCLIA [id number] [place] [address] [place] MCH (RBC) [Entitic mass] 29.1 pg Normal 26.0-34.0 [facility] Comment on above: Order Comment: Speci men Type: BLOOD SPECIMENOrdering Facility: [facility] Address: [address] [place] [address] Performed By: #### 5 7021-8, 7-7 ####[facility] LABCLIA [id number] [place] [address] [place] MCHC (RBC) [Mass/Vol] 31.5 g/dL Normal 30.5-36.0 [facility] Comment on above: Order Comment: Speci men Type: BLOOD SPECIMENOrdering Facility: [facility] Address: [address] [place] [address] Performed By: #### 5 7021-8, 7-7 ####[facility] LABCLIA [id number] [place] [address] [place] MCV (RBC) [Entitic vol] 92.2 fL Normal 80.0-100.0 C [facility] Comment on above: Order Comment: Speci men Type: BLOOD SPECIMENOrdering Facility: [facility] Address: [address] [place] [address] Performed By: #### 5 7021-8, 4536-7 ####[facility] LABCLIA [id number] [place] [address] [place] Monocytes (Bld) [#/Vol] 0.82 10*3/uL Normal <0.87 [facility] Comment on above: Order Comment: Speci men Type: BLOOD SPECIMENOrdering Facility: [facility] Address: [address] [place] [address] Performed By: #### 5 7021-8, 4536-7 ####[facility] LABCLIA [id number] [place] [address] [place] Monocytes/100 WBC (Bld) 7.6 % Normal C [facility] Comment on above: Order Comment: Speci men Type: BLOOD SPECIMENOrdering Facility: [facility] Address: [address] [place] [address] Performed By: #### 5 7021-8, 4536-7 ####[facility] LABCLIA [id number] [place] [address] [place] Neutrophils (Bld) [#/Vol] 7.83 10*3/uL High 1.45-7.5 0 [facility] Comment on above: Order Comment: Speci men Type: BLOOD SPECIMENOrdering Facility: [facility] Address: [address] [place] [address] Performed By: #### 5 7021-8, 7-7 ####[facility] LABCLIA [id number] [place] [address] [place] Neutrophils/100 WBC (Bld) 72.1 % Normal [facility] Comment on above: Order Comment: Speci men Type: BLOOD SPECIMENOrdering Facility: [facility] Address: [address] [place] [address] Performed By: #### 5 7021-8, 4537-7 ####[facility] LABCLIA [id number] [place] [address] [place] Nucleated RBC (Bld) [#/Vol] 10*3/uL Normal <0.01 [facility] Comment on above: Order Comment: Speci men Type: BLOOD SPECIMENOrdering Facility: [facility] Address: [address] [place] [address] Performed By: #### 5 7021-8, 4537-7 ####[facility] LABCLIA [id number] [place] [address] [place] Nucleated RBC/100 WBC (Bld) [Ratio] 0.0 /100 WBC Normal [facility] Comment on above: Order Comment: Speci men Type: BLOOD SPECIMENOrdering Facility: [facility] Address: [address] [place] [address] Performed By: #### 5 7021-8, 4537-7 ####[facility] LABCLIA [id number] [place] [address] [place] Platelet mean volume (Bld) [Entitic vol] 9.2 fL Normal 9.0-12.7 [facility] Comment on above: Order Comment: Speci men Type: BLOOD SPECIMENOrdering Facility: [facility] Address: [address] [place] [address] Performed By: #### 5 7021-8, 4537-7 ####[facility] LABCLIA [id number] [place] [address] [place] Platelets (Bld) [#/Vol] 497 10*3/uL High 150-400 [facility] Comment on above: Order Comment: Speci men Type: BLOOD SPECIMENOrdering Facility: [facility] Address: [place] [address] Performed By: #### 5 7021-8, 4537-7 ####[facility] LABCLIA [id number] [place] [address] [place] RBC (Bld) [#/Vol] 3.99 10*6/uL Low 4.20-6.00 [facility] Comment on above: Order Comment: Speci men Type: BLOOD SPECIMENOrdering Facility: [facility] Address: [place] [address] Performed By: #### 5 7021-8, 4537-7 ####[facility] LABCLIA [id number] [place] [address] [place] WBC (Bld) [#/Vol] 10.84 10*3/uL Normal 3.70-11.00 [facility] Comment on above: Order Comment: Speci men Type: BLOOD SPECIMENOrdering Facility: [facility] Address: [place] [address] Performed By: #### 5 7021-8, 4537-7 ####[facility] LABCLIA [id number] [place] [address] [place] CNOVon 12-01-2023 CNOV Office Visit (ANGEL ) ----- JAM TOSCANO ([id number]) 1965 Griselda Date Time Provider Department 12/01/23 3:30 PM NIDIA WESTON During your visit today, we recorded the following information about you: Pulse Blood pressure Weight 92/minute 122/76 72.8 kg Nidia Weston, ADEOLA.SHEETER HELPER 01/11/2024 11:15 PM Signed Follow up Telephone [...] rom shoulders. Left elbow. No dental concerns [facility] [phone] GI - colitis- has been calm SSZ [...] Jagdish grace (more content not included)... Normal [facility] CRP SerPl-mCncon 12-01-2023 CRP [Mass/Vol] 3.9 mg/dL High <0.9 [facility] Comment on above: Order Comment: Speci men Type: BLOOD SPECIMENOrdering Facility: [facility] Address: [address] [place] [address] Performed By: #### 2 4323-06, 1988-03 ####[facility] LABCLIA [id number] [place] [address] [place] Comprehensive metabolic 2000 panelon 12-01-2023 Albumin [Mass/Vol] 3.9 g/dL Normal 3.9-4.9 [facility] Comment on above: Order Comment: Speci men Type: BLOOD SPECIMENOrdering Facility: [facility] Address: [address] [place] [address] Performed By: #### 2 4323-06, 1988-03 ####[facility] LABCLIA [id number] [place] [address] [place] ALP [Catalytic activity/Vol] 171 U/L High 38-113 [facility] Comment on above: Order Comment: Speci men Type: BLOOD SPECIMENOrdering Facility: [facility] Address: [address] [place] [id number] Performed By: #### 2 4323-06, 1988-03 ####[facility] LABCLIA [id number] [address] [address] [place] ALT [Catalytic activity/Vol] 22 U/L Normal 10-54 [facility] Comment on above: Order Comment: Speci men Type: BLOOD SPECIMENOrdering Facility: [facility] Address: [address] [place] [address] Performed By: #### 2 4323-06, 1988-03 ####[facility] LABCLIA [id number] [place] [id number] [place] Anion gap [Moles/Vol] 12 mmol/L Normal 9-18 [facility] Comment on above: Order Comment: Speci men Type: BLOOD SPECIMENOrdering Facility: [facility] Address: [address] [place] [address] Performed By: #### 2 43201-21, 1988-03 ####[facility] LABCLIA [id number] [place] [address] [place] AST [Catalytic activity/Vol] 31 U/L Normal 14-40 [facility] Comment on above: Order Comment: Speci men Type: BLOOD SPECIMENOrdering Facility: [facility] Address: [address] [place] [address] Performed By: #### 2 43201-21, 1988-03 ####[facility] LABCLIA [id number] [place] [address] [place] Bilirubin [Mass/Vol] 0.3 mg/dL Normal 0.2-1.3 [facility] Comment on above: Order Comment: Speci men Type: BLOOD SPECIMENOrdering Facility: [facility] Address: [address] [place] [address] Performed By: #### 2 43201-21, 1988-03 ####[facility] LABCLIA [id number] [place] [address] [place] Calcium [Mass/Vol] 10.2 mg/dL Normal 8.5-10.2 [facility] Comment on above: Order Comment: Speci men Type: BLOOD SPECIMENOrdering Facility: [facility] Address: [address] [place] [address] Performed By: #### 2 43201-21, 1988-03 ####[facility] LABCLIA [id number] [place] [id number] [place] Chloride [Moles/Vol] 106 mmol/L High 97-105 [facility] Comment on above: Order Comment: Speci men Type: BLOOD SPECIMENOrdering Facility: [facility] Address: [address] [place] [address] Performed By: #### 2 43201-21, 1988-03 ####[facility] LABIA [id number] [address] [address] [place] CO2 [Moles/Vol] 25 mmol/L Normal 22-30 [facility] Comment on above: Order Comment: Speci men Type: BLOOD SPECIMENOrdering Facility: [facility] Address: [address] [place] [address] Performed By: #### 2 4323-06, 1988-03 ####[facility] LABIA [id number] [place] [address] [place] Creatinine [Mass/Vol] 0.92 mg/dL Normal 0.73-1.22 [facility] Comment on above: Order Comment: Speci men Type: BLOOD SPECIMENOrdering Facility: [facility] Address: [address] [place] [address] Performed By: #### 2 4323-06, 1988-03 ####[facility] LABIA [id number] [place] [address] [place] Creatinine and Glomerular filtration rate.predicted panel (S/P/Bld) 96 mL/min/1.73m??? Normal >=60 [facility] Comment on above: Order Comment: Speci men Type: BLOOD SPECIMENOrdering Facility: [facility] Address: [address] [place] [address] Result Comment: Fauzia mated Glomerular Filtration Rate [...] GFR. Performed By: #### 2 43201-21, 1988-03 ####[facility] LABCLIA [id number] [address] [address] [place] Glucose [Mass/Vol] 101 mg/dL High 74-99 [facility] Comment on above: Order Comment: Speci men Type: BLOOD SPECIMENOrdering Facility: [facility] Address: [address] [place] [address] Result Comment: The [place] [employer] (ADA) provides guidance for cutoff [...] Standards of Medical Care in Diabetes 2016, [place] [employer]. Diabetes Care. 2016.39(Suppl 1). Performed By: #### 2 43201-21, 1988-03 ####[facility] LABCLIA [id number] [place] [id number] [place] Potassium [Moles/Vol] 4.1 mmol/L Normal 3.7-5.1 [facility] Comment on above: Order Comment: Speci men Type: BLOOD SPECIMENOrdering Facility: [facility] Address: [address] [place] [id number] Performed By: #### 2 4323-06, 1988-03 ####[facility] LABCLIA [id number] [address] [address] [place] Protein [Mass/Vol] 8.0 g/dL Normal 6.3-8.0 [facility] Comment on above: Order Comment: Speci men Type: BLOOD SPECIMENOrdering Facility: [facility] Address: [address] [place] [address] Performed By: #### 2 4323-06, 1988-03 ####[facility] LABCLIA [id number] [place] [address] [place] Sodium [Moles/Vol] 143 mmol/L Normal 136-144 [facility] Comment on above: Order Comment: Speci men Type: BLOOD SPECIMENOrdering Facility: [facility] Address: [address] [place] [address] Performed By: #### 2 4323-8, 1988-03 ####[facility] LABIA [id number] [place] [address] [place] Urea nitrogen [Mass/Vol] 19 mg/dL Normal 9-24 [facility] Comment on above: Order Comment: Speci men Type: BLOOD SPECIMENOrdering Facility: [facility] Address: [address] [place] [address] Performed By: #### 2 4323-8, 1988-03 ####[facility] LABIA [id number] [place] [address] [place] ESR Westergren method (Bld) [Velocity]on 12-01-2023 ESR (Bld) [Velocity] 114 mm/h High 0-15 [facility] Comment on above: Order Comment: Latoyai men Type: BLOOD SPECIMENOrdering Facility: [facility] Address: [address] [place] [address] Performed By: #### 5 7021-8, 4537-7 ####[facility] LABIA [id number] [place] [address] [place] HBV core Ab Ser Qlon 024 HBV core Ab Ql (S) Negative Normal Negative [facility] Comment on above: Order Comment: Speci men Type: BLOOD SPECIMENOrdering Facility: [facility] Address: [address] [place] [address] Result Comment: No e vidence of current or past infection with Hepatitis B virus. Should recent infection be suspected, repeat testing may be considered 3-4 weeks after this draw. Performed By: #### 1 6933-4, 5-3, 35271-5 ####[facility] LABCLIA [id number] [place] [address] [place] HBV surface Ab Ql (S)on 11-16 HBV surface Ab Qn (S) <8.00 Normal [facility] Comment on above: Order Comment: Speci men Type: BLOOD SPECIMENOrdering Facility: [facility] Address: [address] [place] [address] Result Comment: <8 m IU/mL: No serological evidence of immunity to Hepatitis B Virus. >/= 8 to <12 mIU/mL: No serological evidence of immunity to Hepatitis B Virus. >/= 12 mIU/mL: Consistent with serological evidence of immunity to Hepatitis B Virus. Performed By: #### 1 6933-4, 3, ####[facility] LABIA [id number] [address] [place] HBV surface Ab Ser Qlon 11-16 HBV surface Ab Ql (S) Negative Normal [facility] Comment on above: Order Comment: Speci men Type: BLOOD SPECIMENOrdering Facility: [facility] Address: [address] [place] [address] Result Comment: No s erological evidence of immunity to Hepatitis B Virus. Performed By: #### 1 6933-4, 5194-3, 01723-8 ####[facility] LABCLIA [id number] [place] [address] [place] HBV surface Ag Ser Qlon 11-16 HBV surface Ag Ql (S) Negative Normal Negative [facility] Comment on above: Order Comment: Speci men Type: BLOOD SPECIMENOrdering Facility: [facility] Address: [address] [place] [address] Performed By: #### 1 6933-4, 5195-3, 81112-1 ####[facility] LABCLIA [id number] [address] [place] HCV Ab Ser Qlon 12-01-2023 HCV Ab Ql (S) Negative Normal Negative [facility] Comment on above: Order Comment: Speci men Type: BLOOD SPECIMENOrdering Facility: [facility] Address: [address] [place] [address] Result Comment: The result suggests no evidence of active infection with Hepatitis C virus. Should recent infection be suspected, repeat testing may be considered 4-6 weeks after this draw. Performed By: #### 1 6128-1 ####[facility] LABCLIA [id number] [facility] [id number] [id number] [facility] ED Note-Physicianon 11-28-19 24 ED Note-Physician Basic [...] for 3 day(s), 15 tab(s), Refill(s) 0, [facility]/pharmacy #[id number], 168, cm, 11/27/23 10:26:00 EST, Height/Length Dosing, 73.8, kg, 11/27/23 10:26:00 EST, Weight Dosing Orders: methocarbamol, 1,500 mg = 2 tab(s), Oral, TID, X 3 day(s), # 18 tab(s), Refills(s) 0, Pharmacy: [facility]/pharmacy #[id number], 168, cm, 11/27/23 10:26:00 EST, [...] [place] In 3 days 11/30/2023 EST [address] [facility] [address] [place] [address]- Business (1) Additional Instructions: Patient Education Rheumatoid Arthritis Attestation Patient seen and evaluated by the physician school office assistant. Attending physician was present in the emergency department and supervised care. This visit was performed by both the physician and an APC. I performed all aspects of the MDM as documented. This report was transcribed using voice recognition software. Every effort was made to ensure accuracy, however, inadvertently computerized ocean export account manager mistakes may be present. Appropriate healthcare PPE [...] Prostate calculus Rectal bleed Ulcerative colitis, universal Crowley ulcerative colitis Urethral stone Historical Extreme obesity Ulcerative colitis Procedure/Surgical History Colonoscopy (03/23/2023), Cystoscopy (02/04/2021), Colonoscopy, Hernia repair, Procedure on hip, Procedure on knee. Medicatio (more content not included)... Normal [facility] Comment on above: Result Comment: Elec tronically Signed By: Juancarlos Josue PA-C\.br\Date and Time Signed: 11/27/23 18:42 EST\.br\Electronically Co-Signed By: Kavon Johnson DO\.br\Date and Time Co-Signed: 11/28/23 17:15 EST Auto Diffon 11-27-2023 Basophils/100 WBC (Bld) 0.7 % Normal 0.0-2.0 [facility] Comment on above: Order Comment: Order Added by Discern Expert. Performed By: #### 2 049087, [id number], [id number], [id number] ####[facility] [id number] [place] [address] Basophils/Leukocytes Auto (Bld) [Pure # fraction] 0.1 E9/L Normal 0.0-0.2 [facility] Comment on above: Order Comment: Order Added by Discern Expert. Performed By: #### 2 226697, [id number], [id number], [id number] ####[place] [address] [place] [address] Eosinophils/100 WBC (Bld) 0.0 % Normal 0.0-8.0 [facility] Comment on above: Order Comment: Order Added by Discern Expert. Performed By: #### 2 362048, [id number], [id number], [id number] ####[place] [place] [address] Eosinophils/Leukocytes Auto (Bld) [Pure # fraction] 0.0 E9/L Normal 0.0-0.5 [facility] Comment on above: Order Comment: Order Added by Discern Expert. Performed By: #### 2 188779, [id number], [id number], [id number] ####[address] [address] Lymphocytes/100 WBC (Bld) 18.8 % Normal 14.0-50.0 [facility] Comment on above: Order Comment: Order Added by Discern Expert. Performed By: #### 2 524960, 8178577, 58523052, 3675279 ####[address] [address] Lymphocytes/Leukocytes Auto (Bld) [Pure # fraction] 1.8 E9/L Normal 1.0-4.0 [facility] Comment on above: Order Comment: Order Added by Discern Expert. Performed By: #### 2 772296, 9379863, 55824507, 0340124 ####[address] [address] Monocytes/100 WBC (Bld) 9.3 % Normal 4.0-14.0 [facility] Comment on above: Order Comment: Order Added by Discern Expert. Performed By: #### 2 046101, 1773633, 36990205, 6177008 ####[address] [address] Monocytes/Leukocytes Auto (Bld) [Pure # fraction] 0.9 E9/L Normal 0.2-1.0 [facility] Comment on above: Order Comment: Order Added by Discern Expert. Performed By: #### 2 955785, 1858640, 00784030, 1448919 ####[facility] [address] [place] [address] Neutrophils/100 WBC (Bld) 71.2 % Normal 36.0-75.0 [facility] Comment on above: Order Comment: Order Added by Discern Expert. Performed By: #### 2 971648, 8473057, 81478414, 2990322 ####[facility] [address] [place] [address] Neutrophils/Leukocytes Auto (Bld) [Pure # fraction] 6.9 E9/L Normal 2.0-7.5 [facility] Comment on above: Order Comment: Order Added by Discern Expert. Performed By: #### 2 242818, 1212124, 05212569, 4228354 ####[facility] [address] [place] [address] BMPon 11-27-2023 Anion gap [Moles/Vol] 13 mmol/L Normal 6-16 [facility] Comment on above: Performed By: #### 2 027079, 7816325, 79673577, 5700839 ####[facility] [address] [place] [address] BUN/Creat Ratio 21 No Units High 10-20 [facility] Comment on above: Performed By: #### 2 533542, 7573452, 09895321, 7833350 ####[facility] [address] [place] [address] Calcium [Mass/Vol] 9.2 mg/dL Normal 8.9-11.1 [facility] Comment on above: Performed By: #### 2 139916, 2068640, 88993657, 8063013 ####[facility] [address] [place] [address] Chloride [Moles/Vol] 105 mmol/L Normal 101-111 [facility] Comment on above: Performed By: #### 2 817956, 9431026, 02029777, 0151466 ####[facility] [address] [place] [address] CO2 [Moles/Vol] 24 mmol/L Normal 21-31 [facility] Comment on above: Performed By: #### 2 530307, 8466801, 13593192, 7220507 ####[facility] [address] [place] [address] Creatinine [Mass/Vol] 0.7 mg/dL Normal 0.5-1.3 [facility] Comment on above: Performed By: #### 2 965586, 7977228, 30689208, 3735356 ####[facility] [address] [place] [address] Glucose [Mass/Vol] 121 mg/dL Normal 55-199 [facility] Comment on above: Performed By: #### 2 252040, 7998914, 51011803, 8380999 ####[facility] [address] [place] [address] Potassium [Moles/Vol] 3.9 mmol/L Normal 3.5-5.3 [facility] Comment on above: Performed By: #### 2 542715, 0782845, 73514396, 3906023 ####[facility] [address] [place] [address] Sodium [Moles/Vol] 138 mmol/L Normal 135-145 [facility] Comment on above: Performed By: #### 2 849420, 3102486, 62127558, 8163425 ####[facility] [address] [place] [address] Urea nitrogen [Mass/Vol] 15 mg/dL Normal 5-21 [facility] Comment on above: Performed By: #### 2 337400, 4821849, 58309076, 4000405 ####[facility] [address] [place] [address] CBC w/ Auto Diffon 4 Erythrocyte distribution width (RBC) [Ratio] 14.0 % Normal 10.9-14.2 [facility] Comment on above: Performed By: #### 2 456729, 1565352, 49536587, 9214594 ####[place] [address] [place] [address]8557 Hematocrit (Bld) [Volume fraction] 35.0 % Low 37.7-49.0 [facility] Comment on above: Performed By: #### 2 643199, 1200399, 16293127, 1883514 ####[facility] [address] [place], [place] [address] Hemoglobin (Bld) [Mass/Vol] 11.7 g/dL Low 13.5-17.5 [facility] Comment on above: Performed By: #### 2 391447, 6988942, 40519884, 0469106 ####[place] [address] MCH (RBC) [Entitic mass] 29.1 pg Normal 27.0-34.0 [facility] Comment on above: Performed By: #### 2 097131, 1511422, 28161926, 4510096 ####[place] [address] MCHC (RBC) [Mass/Vol] 33.3 g/dL Normal 31.4-36.0 [facility] Comment on above: Performed By: #### 2 728341, 4388248, 41776741, 5499806 ####[address] [address] MCV (RBC) [Entitic vol] 87.3 fL Normal 80.0-100.0 [facility] Comment on above: Performed By: #### 2 080570, 7351561, 12007307, 1925769 ####[facility] [address] [place] [address] Platelet mean volume (Bld) [Entitic vol] 6.3 fL Low 6.4-10.8 [facility] Comment on above: Performed By: #### 2 841456, 0990761, 56484678, 4609305 ####[facility] [address] [place] [address] Platelets (Bld) [#/Vol] 462.0 E9/L Normal 150. 0-500. 0 [facility] Comment on above: Performed By: #### 2 326124, 3977894, 06438781, 0445167 ####[facility] [address] [place] [address] RBC (Bld) [#/Vol] 4.0 E12/L Low 4.3-5.9 [facility] Comment on above: Performed By: #### 2 773543, 9726090, 04247953, 6157568 ####[facility] [address] [place] [address] WBC corrected for nucl RBC Auto (Bld) [#/Vol] 9.7 E9/L Normal 4.0-11.0 [facility] Comment on above: Performed By: #### 2 021824, 0710029, 10921758, 7577496 ####[place] [address] [place] [address] Consent for Treatmenton 11-16 Consent for Treatment [id number] Normal [facility] Discharge Instructionson Discharge Instructions [id number] Normal [facility] ED Clinical Summaryon 2023 ED Clinical Summary (Inserted Image. Perla ble to display) [address] [address] ED Clinical Summary Person Information Name: JAM TOSCANO [facility] Age: 58 Years : 1965 Sex: Male Language: Kosovan PCP: Jose L Lackey MD Marital Status: [...] 11/27/2023 12:48:44 11/27/2023 12:48:44 11/27/2023 12:48:44 ADDRESS: [address] [place] [address] [facility] [id number] PHYS DOC NOTES: MEDICAL INFORMATION: Prescriptions Given: New Medications [id number], [address] [place], [place] [id number], [phone] acetaminophen-oxycodone (Percocet 5 mg-325 mg oral tablet) [...] up: With: Address: When: Jose L Lackey [address] [place] [address], [facility] [place] [address] Business (1) In 3 days 11/30/2023 DIAGNOSIS: Joint pain; Rheumatoid arthritis Normal [facility] ED Patient Education Noteon 11-27-2023 ED [...] in your joints. General instructions ? Take nfro-cbh-sjequwz and prescription medicines only as told by your health care provider. ? Keep all follow-up visits. This is important. Where to find more information ? [employer]: [email or web address] ? Ar[employer]: [...] than y (more content not included)... Normal [facility] ED Patient Summaryon 024 ED Patient Summary (Inserted Image. Perla ble to display) [address] [address] Patient Discharge Instructions Person Information Name: JAM TOSCANO Age: 58 Years Arrival Date: 11/27/2023 10:14:59 Discharge Diagnosis: Joint pain; Rheumatoid arthritis Primary Care Physician: Jose L Lackey MD Provider Information Primary Provider: Kavon Johnson DO Advanced Yard Operator:Juancarlos Josue PA-C The exam and treatment you received in the Emergency Department were for an urgent problem and are not intended as complete care. It is important that you follow up with a doctor, nurse practitioner, or physician?s school office assistant for ongoing care. If your symptoms [...] Instructions: With: Address: When: Jose L Lackey [address] [place] [address], [facility] [place] [address] Business (1) In 3 days 11/30/2023 In the event that this physician does not participate in your insurance network, please consult with your insurance company to find a nearby participating provider. Patient Education Materials: Rheumatoid Arthritis A MESSAGE TO ALL PATIENTS REGARDING OPIOIDS PRESCRIPTION OPIOIDS: WHAT YOU NEED TO KNOW Prescription opioids can be used to help relieve zsfdhwpz-gp-cgkkmq pain and are often prescribed following a [...] be struggling with addiction, tell your health manager wound care and ask for guidance or call [facility]?S National Helpline at 7-906-666-YNG (more content not included)... Normal [facility] eGFRon 11-27-2023 GFR/1.73 sq M.predicted among non-blacks MDRD (S/P/Bld) [Vol rate/Area] mL/min/{1.73_m2} Normal >=59 [facility] Comment on above: Order Comment: Order added by Discern Expert. Performed By: #### 2 615813, 1325807, 22848843, 5495906 ####[facility] [address] [place] [address] ED Note-Physicianon 11-08-20 ED Note-Physician Basic Information [...] day(s), # 20 tab(s), Refills(s) 0, Pharmacy: [facility]/pharmacy #[id number], 167, cm, 11/04/23 17:47:00 EST, Height/Length Dosing, 73.5, kg, 11/04/23 17:47:00 EST, Weight Dosing 2. Hypokalemia (E87.6: Hypokalemia) Ordered: amoxicillin-clavulanate, = 1 tab(s), Oral, q12hr, X 10 day(s), # 20 tab(s), Refills(s) 0, Pharmacy: [facility]/pharmacy #[id number], 167, cm, 11/04/23 17:47:00 EST, Height/Length Dosing, 73.5, kg, 11/04/23 17:47:00 EST, Weight Dosing 4. Colitis (K52.9: Noninfective gastroenteritis and colitis, unspecified) Ordered: amoxicillin-clavulanate, = 1 tab(s), Oral, q12hr, X 10 day(s), # 20 tab(s), Refills(s) 0, Pharmacy: [facility]/pharmacy #[id number], 167, cm, 11/04/23 17:47:00 EST, [...] Level PT & PTT Rapid COVID Antigen [place] Saline Lock Insert Troponin 0 [...] MD In 3 days 11/07/2023 EST [address] [facility] [place] [address]- Additional Instructions: Patient Education COVID-19 Colitis Hyp (more content not included)... Normal [facility] Comment on above: Result Comment: Elec tronically Signed By: Barbara Brand PA-C\.br\Date and Time Signed: 11/04/23 20:21 EST\.br\Electronically Co-Signed By: Kavon Johnson DO\.br\Date and Time Co-Signed: 11/08/23 19:04 EST Reportability Response - Pub lic Healthon 11-08-2023 Reportability Response - Public Health {qx-4w-9m-v7-r2-v3-48-3d- w8-kx-9h-zv-vk-k0-f5-2f}X ML Normal [facility] Auto Diffon 11-04-2023 Basophils/100 WBC (Bld) 0.3 % Normal 0.0-2.0 [facility] Comment on above: Order Comment: Order Added by Discern Expert. Performed By: #### 1 8744120, 8343947, 10055727, 00792024, 4296829, 4846999, 5310953, 4166202 ####[facility] [address] [place] [address] Basophils/Leukocytes Auto (Bld) [Pure # fraction] 0.0 E9/L Normal 0.0-0.2 [facility] Comment on above: Order Comment: Order Added by Discern Expert. Performed By: #### 1 5961408, 3923121, 18859175, 91608678, 2295914, 0903787, 7157778, 8131362 ####[facility] [address] [place] [address] Eosinophils/100 WBC (Bld) 0.0 % Normal 0.0-8.0 [facility] Comment on above: Order Comment: Order Added by Discern Expert. Performed By: #### 1 4608782, 7951120, 21911685, 30420402, 6939582, 4760446, 3169127, 3694487 ####[place] [address] [address] Eosinophils/Leukocytes Auto (Bld) [Pure # fraction] 0.0 E9/L Normal 0.0-0.5 [facility] Comment on above: Order Comment: Order Added by Discern Expert. Performed By: #### 1 9018439, 9882076, 51857738, 11518919, 4310517, 4688343, 4453057, 5613884 ####[address] [address] Lymphocytes/100 WBC (Bld) 18.0 % Normal 14.0-50.0 [facility] Comment on above: Order Comment: Order Added by Discern Expert. Performed By: #### 1 6641973, 3590456, 23508092, 47883727, 1569460, 1285160, 1683651, 9880369 ####[address] [address] Lymphocytes/Leukocytes Auto (Bld) [Pure # fraction] 1.1 E9/L Normal 1.0-4.0 [facility] Comment on above: Order Comment: Order Added by Discern Expert. Performed By: #### 1 3763114, 3541616, 93746657, 10766330, 5332778, 0436870, 1290392, 9277467 ####[address] [address] Monocytes/100 WBC (Bld) 8.0 % Normal 4.0-14.0 [facility] [place] Comment on above: Order Comment: Order Added by Discern Expert. Performed By: #### 1 2721556, 0797625, 87890342, 21758980, 0430281, 7620554, 6456024, 3262434 ####[address] [address] Monocytes/Leukocytes Auto (Bld) [Pure # fraction] 0.5 E9/L Normal 0.2-1.0 [facility] Comment on above: Order Comment: Order Added by Discern Expert. Performed By: #### 1 0538850, 4660500, 27453232, 59963555, 8613316, 0639409, 0387944, 9095281 ####[place] [address] [place] [address] Neutrophils/100 WBC (Bld) 73.7 % Normal 36.0-75.0 [facility] Comment on above: Order Comment: Order Added by Discern Expert. Performed By: #### 1 7575051, 7162991, 72717929, 63004007, 8801157, 9213883, 0119541, 2548191 ####[facility] [address] [place] [address] Neutrophils/Leukocytes Auto (Bld) [Pure # fraction] 4.5 E9/L Normal 2.0-7.5 [facility] Comment on above: Order Comment: Order Added by Discern Expert. Performed By: #### 1 2008319, 7782699, 41034255, 93147118, 1424666, 4842431, 1347732, 1374699 ####[address] [address] CBC w/ Auto Diffon 3 Erythrocyte distribution width (RBC) [Ratio] 14.0 % Normal 10.9-14.2 [facility] Comment on above: Performed By: #### 1 1381957, 7488289, 44409033, 99616245, 7231715, 2508914, 1075073, 8739299 ####[place] [address] [place] [address] Hematocrit (Bld) [Volume fraction] 33.4 % Low 37.7-49.0 [facility] Comment on above: Performed By: #### 1 9744527, 7262131, 23732921, 83625978, 7558115, 9404668, 8689548, 6304595 ####[facility] [address] [place] [address] Hemoglobin (Bld) [Mass/Vol] 11.3 g/dL Low 13.5-17.5 [facility] Comment on above: Performed By: #### 1 1846223, 7852222, 59624257, 07668914, 9281393, 3897519, 3246111, 5680386 ####[place] [address] [place] [address] MCH (RBC) [Entitic mass] 30.4 pg Normal 27.0-34.0 [facility] Comment on above: Performed By: #### 1 0411033, 0840511, 99837110, 47043470, 9081507, 2293517, 1115084, 2356011 ####[address] [address] MCHC (RBC) [Mass/Vol] 33.9 g/dL Normal 31.4-36.0 [facility] Comment on above: Performed By: #### 1 8249113, 0139425, 66798349, 57857750, 0533014, 9395162, 8666851, 2662733 ####[place] [address] MCV (RBC) [Entitic vol] 89.7 fL Normal 80.0-100.0 [facility] Comment on above: Performed By: #### 1 8915515, 1138314, 94891348, 39670860, 9234484, 3021626, 9723916, 6978544 ####[address] [address] Platelet mean volume (Bld) [Entitic vol] 6.4 fL Normal 6.4-10.8 [facility] Comment on above: Performed By: #### 1 5025408, 2940237, 95908405, 40439951, 8777866, 1254474, 7912877, 4839630 ####[address] [address] Platelets (Bld) [#/Vol] 224.0 E9/L Normal 150. 0-500. 0 [facility] Comment on above: Performed By: #### 1 9185207, 8132769, 31470366, 95159665, 8974503, 4572383, 4591062, 5105353 ####[facility] [address] [place] [address] RBC (Bld) [#/Vol] 3.7 E12/L Low 4.3-5.9 [facility] Comment on above: Performed By: #### 1 3224916, 9679874, 64302218, 69639689, 6015321, 4185953, 0040659, 7618850 ####[facility] [address] [place] [address] WBC corrected for nucl RBC Auto (Bld) [#/Vol] 6.0 E9/L Normal 4.0-11.0 [facility] Comment on above: Performed By: #### 1 5287815, 4189025, 10199247, 95571561, 4730945, 5743657, 6301121, 7824787 ####[address] [address] CMPon 11-04-2023 Albumin [Mass/Vol] 3.4 g/dL Normal 3.3-5.0 [facility] Comment on above: Performed By: #### 1 9212231, 4548916, 47662929, 77599147, 8586462, 0830366, 7084860, 4851673 ####[place] [address] [place] [address] Albumin/Globulin [Mass ratio] 1.1 {ratio} Normal 1.1-2.2 [facility] Comment on above: Performed By: #### 1 9732238, 6661732, 26037771, 04947334, 8047295, 5500960, 3940757, 7957614 ####[place] [address] [place] [address] Alk Phos 106 Int._Unit/L High 21-98 [facility] Comment on above: Performed By: #### 1 7324490, 8273091, 45763696, 24208443, 6194576, 6882012, 5641169, 7805555 ####[facility] [address] [place] [address] ALT 19 Int._Unit/L Normal 6-46 [facility] Comment on above: Performed By: #### 1 3790634, 8395973, 63426881, 29048113, 2046008, 0939038, 8678439, 0098110 ####[facility] [address] [place] [address] Anion gap [Moles/Vol] 10 mmol/L Normal 6-16 [facility] Comment on above: Performed By: #### 1 7997050, 1708335, 26365359, 05178284, 4648264, 3585874, 2920481, 1154782 ####[facility] [address] [place] [address] AST 25 Int._Unit/L Normal 5-43 [facility] Comment on above: Performed By: #### 1 9880047, 4948332, 87229741, 76256941, 5507588, 6782447, 6726255, 3747459 ####[facility] [address] [place] [address] Bili Total 0.5 mg/dL Normal 0.0-1.1 [facility] Comment on above: Performed By: #### 1 0015009, 5931863, 49327096, 54553518, 5802889, 1364899, 0334037, 8945196 ####[facility] [address] [place] [address] BUN/Creat Ratio 13 No Units Normal 10-20 [facility] Comment on above: Performed By: #### 1 1801343, 3918637, 80211833, 39716186, 6992549, 0367896, 9808019, 5691240 ####[facility] [address] [place] [address] Calcium [Mass/Vol] 8.2 mg/dL Low 8.9-11.1 [facility] Comment on above: Performed By: #### 1 3350508, 9803153, 50727988, 78307763, 7482886, 4535365, 5619117, 9836018 ####[facility] [address] [place] [address] Chloride [Moles/Vol] 105 mmol/L Normal 101-111 [facility] Comment on above: Performed By: #### 1 9405323, 4697369, 06609245, 22854348, 5781177, 2567385, 4125669, 8090011 ####[facility] [address] [place] [address] CO2 [Moles/Vol] 26 mmol/L Normal 21-31 [facility] Comment on above: Performed By: #### 1 3703111, 8295513, 00916366, 89572423, 7168413, 8501436, 3790758, 2341436 ####[facility] [address] [place] [address] Creatinine [Mass/Vol] 0.9 mg/dL Normal 0.5-1.3 [facility] Comment on above: Performed By: #### 1 2955350, 5637658, 49780684, 96505966, 1891196, 1349600, 9741192, 3480847 ####[facility] [address] [place] [address] Globulin (S) [Mass/Vol] 3.0 g/dL Normal 1.4-4.0 [facility] Comment on above: Performed By: #### 1 0605192, 5746951, 88083121, 56816689, 2123309, 3669897, 0485347, 8618338 ####[facility] [address] [place] [address] Glucose [Mass/Vol] 102 mg/dL Normal 55-199 [facility] Comment on above: Performed By: #### 1 2815005, 8678900, 64985757, 57322721, 3677048, 8764982, 0912360, 3851758 ####[facility] [address] [place] [address] Potassium [Moles/Vol] 3.3 mmol/L Low 3.5-5.3 [facility] Comment on above: Performed By: #### 1 2486804, 2378108, 27068652, 45082198, 5396841, 2634328, 3777707, 1593068 ####[facility] [address] [place] [address] Protein [Mass/Vol] 6.4 g/dL Normal 6.0-7.8 [facility] Comment on above: Performed By: #### 1 2217781, 1808003, 01066639, 20276843, 3234573, 2250692, 4942574, 2732609 ####[facility] [address] [place] [address] Sodium [Moles/Vol] 138 mmol/L Normal 135-145 [facility] Comment on above: Performed By: #### 1 3240994, 6192005, 44120050, 28768092, 2418792, 5594456, 2042032, 8257028 ####[facility] [address] [place] [address] Urea nitrogen [Mass/Vol] 12 mg/dL Normal 5-21 [facility] Comment on above: Performed By: #### 1 6920464, 5858382, 36447622, 46893718, 8076432, 5358984, 7016649, 4499359 ####[facility] [address] [place] [address] CT Abdomen/Pelvis w/ Contras ton 11-04-2023 CT [...] 300 Contrast amount in ml's: 100 Normal [facility] Consent for Treatmenton 10-17 Consent for Treatment [id number]#[id number] Normal [facility] Discharge Instructionson Discharge Instructions [id number] Normal [facility] ED Clinical Summaryon 2022 ED Clinical Summary (Inserted Image. Perla ble to display) [place] [id number] ED Clinical Summary Person Information Name: JAM TOSCANO [facility] Age: 58 Years : 1965 Sex: Male Language: Kosovan PCP: Jose L Lackey MD Marital Status: [...] 11/04/2023 20:23:46 11/04/2023 20:23:46 11/04/2023 20:23:46 ADDRESS: [address] [place] [address] [address] [facility] [facility] [id number] PHYS DOC NOTES: MEDICAL INFORMATION: Prescriptions Given: New Medications [facility]/pharmacy #6177, [address] [place], [place] [id number], [phone] amoxicillin-clavulanate (Augmentin 875 mg oral tablet) 1 [...] With: Address: When: Jose L Lackey MD [address] [facility] [place] [address] In 3 days 11/07/2023 DIAGNOSIS: 1:COVID-19; 2:Hypokalemia; 3:Pneumonia due to COVID-19 virus; 4:Colitis; Pneumonia due to coronavirus disease 2019 Normal [facility] ED Patient Education Noteon 11-04-2023 ED [...] you start to feel better. ? Take qtii-yts-zrtcver and prescription medicines only as told by [...] provider. Document Revised: 07/09/2021 Document Reviewed: 07/09/2021 MD [employer] Patient Education ? 2022 [employer] Hypokalemia Hypokalemia means that the amount [...] through an (more content not included)... Normal [facility] ED Patient Summaryon 023 ED Patient Summary (Inserted Image. Perla ble to display) [place] [address] Patient Discharge Instructions Person Information Name: JAM TOSCANO Age: 58 Years Arrival Date: 11/04/2023 17:35:01 Discharge Diagnosis: 1:COVID-19; 2:Hypokalemia; 3:Pneumonia due to COVID-19 virus; 4:Colitis; Pneumonia due to coronavirus disease 2018 Primary Care Physician: Jose L Lackey MD Provider Information Primary Provider: Kavon Johnson DO Advanced Yard Operator:None The exam and treatment you received in the Emergency Department were for an urgent problem and are not intended as complete care. It is important that you follow up with a doctor, nurse practitioner, or physician?s school office assistant for ongoing care. If your symptoms [...] Address: When: Jose L Lackey MD [address] [facility] [place] [address] In 3 days 11/07/2023 In the event that this physician does not participate in your insurance network, please consult with your insurance company to find a nearby participating provider. Patient Education Materials: COVID-19; Colitis; Hypokalemia A MESSAGE TO ALL PATIENTS REGARDING OPIOIDS PRESCRIPTION OPIOIDS: WHAT YOU NEED TO KNOW Prescription opioids can be used to help relieve ivktscbv-tv-niprab pain and are often prescribed following a [...] be struggling with addiction, tell your health manager wound care and as (more content not included)... Normal [facility] Lactic Acidon 11-04-2023 Lactic Acid Lvl 1.0 mmol/L Normal 0.5-2.2 [facility] Comment on above: Performed By: #### 1 4562142, 1532287, 21881554, 09315365, 8918770, 1528447, 7271344, 8908541 ####[facility] [address] [place] [address] Magnesiumon 11-04-2023 Magnesium [Mass/Vol] 1.4 mg/dL Normal 1.3-2.4 [facility] Comment on above: Performed By: #### 1 8814257, 2417271, 65538808, 04908261, 6319800, 5894417, 6372111, 8428906 ####[facility] [address] [place] [address] PT & PTTon 11-04-2023 aPTT Coag (PPP) [Time] 34.0 second(s) Normal 25.1-36.5 [facility] Comment on above: Result Comment: Para [...] the same coagulation reagent and instrumentation [place] [facility] Currently there are no coagulation studies available worldwide for children to 14 days, and no normal ranges. Heparin therapeutic range (represented by Anti-Factor Xa activity of 0.2 - 0.4 U/mL) corresponds to PTT of 56.6 - 109.0 sec. Performed By: #### 1 2457443, 7584883, 47564800, 79234550, 4739791, 0766171, 9246335, 5254535 ####[facility] [address] [place] [address] INR Coag (PPP) [Relative time] 1.2 {INR} Invalid Interpretation Code [facility] Comment on above: Result Comment: INR results are specifically intended to assess patients stabilized on long-term Anticoagulation therapy suggested INR?s ?Less Intensive Anticoagulation? 2.0 ? 3.0 Conventional Range 3.0 ? 4.5 Performed By: #### 1 0250906, 1077527, 64921165, 83907058, 0412273, 8065823, 7058102, 7925450 ####[facility] [address] [place] [address] PT Coag (PPP) [Time] 13.7 second(s) High 9.4-12.5 [facility] Comment on above: Result Comment: 15 [...] the same coagulation reagent and instrumentation as [facility] Currently there are no coagulation studies available worldwide for children to 14 days, and no normal ranges. Performed By: #### 1 4053188, 2173636, 08882807, 30673273, 9635118, 5016658, 2570649, 7411210 ####[place] [address] [place] [address] Rapid COVID Antigen ([facility]on 11-04-2023 Rapid COV Int NEG Ctl Pass Normal Fis [facility] Comment on above: Performed By: #### 2 [id number] ####[address] [address] Rapid COV Int POS Ctl Pass Normal Fis [facility] Comment on above: Performed By: #### 2 [id number] ####[address] [address] SARS-CoV+SARS-CoV-2 (COVID-19) Ag IA.rapid Ql (Resp) Detected Abnormal Not Detected [facility] Comment on above: Result Comment: The Flashtalkingitor? System for Rapid Detection of SARS-CoV-2 is [...] For in vitro diagnostic use. In the [facility], only for use under an Emergency Use [...] or revoked sooner. Performed By: #### 2 [id number] ####[facility] [place] [address] Reportability Response - [facility] Healthon 11-04-2023 Reportability Response - Public Health {[id number]- [id number]}X ML Normal [facility] Troponin 0 Hr.on 11-04-2023 Troponin 9.30 pg/mL Low 15.90-38.4 0 [facility] Comment on above: Result Comment: The 95% CI (Confidence Interval) PPV (Positive Predictive Value) for myocardial infarction in females is 38 pg/mL, in males 51 pg/mL. The results should be used in conjunction with clinical conditions of myocardial infarction. (Access High Sensitivity Troponin I Instructions For Use, Missael Suraj, June 2018) Performed By: #### 1 6119996, 3966264, 52367847, 50274633, 3199657, 0444191, 3932467, 2309901 ####[facility] [address] [place] [address] UA With Cult Reflexon 2022 Bacteria LM Ql (Urine sed) 1+ /HPF Abnormal Trace [facility] Comment on above: Performed By: #### 1 7583105 ####[facility] [address] [place] [address] Bilirubin Ql (U) Negative Normal Negative [facility] Comment on above: Performed By: #### 1 1247946 ####[facility] [address] [place] [address] Clarity (U) CLOUDY Abnormal Clear [facility] Comment on above: Performed By: #### 1 8105101 ####[facility] [address] [facility] [place] [address] Color (U) YELLOW Normal Yellow [facility] Comment on above: Performed By: #### 1 8657644 ####[facility] [address] [place] [address] Crystals LM Ql (Urine sed) Present Normal [facility] Comment on above: Performed By: #### 1 8845935 ####[facility] [address] [facility] [place] [address] Epithelial cells.squamous LM.HPF (Urine sed) [#/Area] 0-2 Normal 0-2 [facility] Comment on above: Performed By: #### 1 1422130 ####[facility] [address] [facility] [place] [address] Glucose Test strip (U) [Mass/Vol] Negative Normal Negative [facility] Comment on above: Performed By: #### 1 1562047 ####[facility] [address] [place] [address] Hemoglobin Ql (U) 3+ Abnormal Negative [facility] Comment on above: Performed By: #### 1 4960339 ####[facility] [address] [place] [address] Ketones (U) [Mass/Vol] Negative Normal Negative [facility] Comment on above: Performed By: #### 1 8784214 ####[facility] [address] [facility] [place] [address] [place].plasma/[place].RB C (Bld) [Mass ratio] 21-30 Abnormal 0-3 [facility] Comment on above: Performed By: #### 1 0607698 ####[address] [address] Nitrite Ql (U) Negative Normal Negative [facility] Comment on above: Performed By: #### 1 8474275 ####[place] [address] pH (U) 7.0 [pH] Invalid Interpretation Code 5.0-9.0 [facility] Comment on above: Performed By: #### 1 1574112 ####[place] [address] Protein (U) [Mass/Vol] 1+ Abnormal Negative [facility] Comment on above: Performed By: #### 1 5277881 ####[place] [address] Specific gravity (U) [Rel density] 1.020 Invalid Interpretation Code 1.005-1.03 0 [facility] Comment on above: Performed By: #### 1 3031779 ####[place] [address] Type of Urine collection method Clean Catch Normal [facility] Comment on above: Performed By: #### 1 6510471 ####[address] [address] Urobilinogen Qn (U) 0.2 {Rosina'U}/dL Normal 0.0-1.0 [facility] Comment on above: Performed By: #### 1 1380483 ####[address] [address] WBC Auto Ql (U) Negative Normal Negative [facility] Comment on above: Performed By: #### 1 3565882 ####[address] [address] WBC casts LM.LPF (Urine sed) [#/Area] 0-3 Normal [facility] Comment on above: Performed By: #### 1 9458991 ####[facility] [address] [place] [address] WBC LM.HPF (Urine sed) [#/Area] 0-5 Normal 0-5 [facility] Comment on above: Performed By: #### 1 6001971 ####[facility] [address] [place] [address] XR Chest Single Viewon 11-04 XR Chest [...] mGy = na DAP = na Normal [facility] eGFRon 11-04-2023 GFR/1.73 sq M.predicted among non-blacks MDRD (S/P/Bld) [Vol rate/Area] mL/min/{1.73_m2} Normal >=59 [facility] Comment on above: Order Comment: Order added by Discern Expert. Performed By: #### 1 5868191, 3404279, 37630973, 74558694, 3962413, 7858825, 7244855, 2988481 ####[facility] [address] [place] [address] Auto Diffon 10-23-2023 Basophils/100 WBC (Bld) 0.2 % Normal 0.0-2.0 [facility] Comment on above: Order Comment: Order Added by Discern Expert. Performed By: #### 2 300105, 8070139, 2457031, 8378974, 70176680, 8017400 #### [facility] [address] [place] [address] Basophils/Leukocytes Auto (Bld) [Pure # fraction] 0.0 E9/L Normal 0.0-0.2 [facility] Comment on above: Order Comment: Order Added by Discern Expert. Performed By: #### 2 591477, 0756653, 5914963, 0080977, 97888757, 8597186 #### [facility] [address] [place] [address] Eosinophils/100 WBC (Bld) 0.0 % Normal 0.0-8.0 [facility] Comment on above: Order Comment: Order Added by Discern Expert. Performed By: #### 2 295739, 6060525, 1537424, 8661056, 60550025, 4411739 #### [facility] [address] [place] [address] Eosinophils/Leukocytes Auto (Bld) [Pure # fraction] 0.0 E9/L Normal 0.0-0.5 [facility] Comment on above: Order Comment: Order Added by Discern Expert. Performed By: #### 2 463769, 6940829, 5211515, 5432864, 95468158, 4782006 #### [facility] [address] [place] [address] Lymphocytes/100 WBC (Bld) 7.8 % Low 14.0-50.0 [facility] Comment on above: Order Comment: Order Added by Discern Expert. Performed By: #### 2 784640, 1036035, 7095267, 5694299, 90150617, 8633639 #### [facility] [address] [place] [address] Lymphocytes/Leukocytes Auto (Bld) [Pure # fraction] 0.8 E9/L Low 1.0-4.0 [facility] Comment on above: Order Comment: Order Added by Discern Expert. Performed By: #### 2 804665, 1813900, 4286201, 7627122, 86798094, 7857436 #### [facility] [address] [place] [address] Monocytes/100 WBC (Bld) 1.6 % Low 4.0-14.0 [facility] Comment on above: Order Comment: Order Added by Discern Expert. Performed By: #### 2 563028, 0087887, 4657403, 3090924, 46287037, 4200500 #### [facility] [address] [place] [address] Monocytes/Leukocytes Auto (Bld) [Pure # fraction] 0.2 E9/L Normal 0.2-1.0 [facility] Comment on above: Order Comment: Order Added by Discern Expert. Performed By: #### 2 720016, 9004512, 7754957, 0512777, 44340483, 3418092 #### [facility] [address] [place] [address] Neutrophils/100 WBC (Bld) 90.4 % High 36.0-75.0 [facility] Comment on above: Order Comment: Order Added by Discern Expert. Performed By: #### 2 636638, 6931063, 9638809, 4683298, 72763899, 7634397 #### [facility] [address] [place] [address] Neutrophils/Leukocytes Auto (Bld) [Pure # fraction] 8.9 E9/L High 2.0-7.5 [facility] Comment on above: Order Comment: Order Added by Discern Expert. Performed By: #### 2 662440, 2410476, 9514852, 5365942, 83592652, 1657856 #### [facility] [address] [place] [address] BMPon 10-23-2023 Creatinine [Mass/Vol] 0.8 mg/dL Normal 0.5-1.3 [facility] Comment on above: Performed By: #### 2 338876, 0288048, 9070965, 5570059, 75703083, 8386421 ####[facility] [address] [place] [address] Urea nitrogen [Mass/Vol] 12 mg/dL Normal 5-21 [facility] Comment on above: Performed By: #### 2 890971, 8643590, 4950204, 3611690, 92574809, 5129573 ####[facility] [address] [place] [address] Urea nitrogen/Creatinine [Mass ratio] 15 No Units Normal 10-20 [facility] Comment on above: Performed By: #### 2 212945, 5677766, 5076221, 6234422, 08762358, 0113565 ####[facility] [address] [place] [address] Anion gap [Moles/Vol] 11 mmol/L Normal 6-16 [facility] Comment on above: Performed By: #### 2 446263, 0425093, 7878011, 7653738, 47045015, 1734685 ####[facility] [address] [place] [address] Calcium [Mass/Vol] 9.5 mg/dL Normal 8.9-11.1 [facility] Comment on above: Performed By: #### 2 273388, 8053579, 8447214, 6785908, 92692806, 4280388 ####[facility] [address] [place] [address] Chloride [Moles/Vol] 110 mmol/L Normal 101-111 [facility] Comment on above: Performed By: #### 2 888327, 6828391, 0348063, 2104494, 44285056, 4817737 ####[facility] [address] [place] [address] CO2 [Moles/Vol] 22 mmol/L Normal 21-31 [facility] Comment on above: Performed By: #### 2 678920, 6936783, 6630809, 1612736, 03874120, 9874273 ####[facility] [address] [place] [address] Glucose [Mass/Vol] 149 mg/dL Normal 55-199 [facility] Comment on above: Result Comment: If t his glucose result represents a fasting glucose, interpretation should refer to the following reference range: 55-99 mg/dL Performed By: #### 2 221172, 9814320, 3951403, 6131552, 49463577, 8830490 ####[facility] [address] [place] [address] Potassium [Moles/Vol] 3.4 mmol/L Low 3.5-5.3 [facility] Comment on above: Performed By: #### 2 302301, 0775856, 0578930, 5905802, 74370270, 4068491 ####[facility] [address] [place] [address] Sodium [Moles/Vol] 140 mmol/L Normal 135-145 [facility] Comment on above: Performed By: #### 2 186236, 3903996, 0695444, 7892167, 17731544, 0619107 ####[facility] [address] [place] [address] CBC w/ Auto Diffon 3 Erythrocyte distribution width (RBC) [Ratio] 13.7 % Normal 10.9-14.2 [facility] Comment on above: Performed By: #### 2 436131, 6623898, 9873014, 9882481, 41603972, 0440494 #### [facility] [address] [place] [address] Hematocrit (Bld) [Volume fraction] 38.3 % Normal 37.7-49.0 [facility] Comment on above: Performed By: #### 2 131269, 8365559, 5734348, 0858319, 98839115, 6873559 #### [facility] [address] [place] [address] Hemoglobin (Bld) [Mass/Vol] 12.9 g/dL Low 13.5-17.5 [facility] Comment on above: Performed By: #### 2 910031, 2461584, 7170646, 4091864, 00782163, 9360932 #### [facility] [address] [place] [address] MCH (RBC) [Entitic mass] 30.4 pg Normal 27.0-34.0 [facility] Comment on above: Performed By: #### 2 626707, 7074033, 5772088, 8903866, 90562825, 3663963 #### [facility] [address] [place], [place] [address] MCHC (RBC) [Mass/Vol] 33.7 g/dL Normal 31.4-36.0 [facility] Comment on above: Performed By: #### 2 093853, 8066190, 9583187, 4756326, 81495215, 1259034 #### [facility] [address] [place] [address] MCV (RBC) [Entitic vol] 90.2 fL Normal 80.0-100.0 [facility] Comment on above: Performed By: #### 2 087657, 9405498, 3496993, 5353819, 07041536, 7251770 #### [facility] [address] [place] [address] Platelet mean volume (Bld) [Entitic vol] 6.1 fL Low 6.4-10.8 [facility] Comment on above: Performed By: #### 2 414313, 5507692, 5483420, 0215016, 96001568, 8155945 #### [facility] [address] [place] [address] Platelets (Bld) [#/Vol] 483.0 E9/L Normal 150. 0-500. 0 [facility] Comment on above: Performed By: #### 2 520259, 9711215, 1679541, 7596478, 67888533, 0006625 #### [facility] [address] [place] [address] RBC (Bld) [#/Vol] 4.2 E12/L Low 4.3-5.9 [facility] Comment on above: Performed By: #### 2 554096, 2457872, 0680432, 0453575, 16183419, 9140420 #### [facility] [address] [place] [address] WBC corrected for nucl RBC Auto (Bld) [#/Vol] 9.8 E9/L Normal 4.0-11.0 [facility] Comment on above: Performed By: #### 2 656215, 1205643, 4415776, 7753530, 05012050, 9107869 #### [facility] [address] [place] [address] CT Abdomen/Pelvis w/o Contra ston 10-23-2023 CT [...] Oral contrast amount in ml's: 0 Normal [facility] Consent for Treatmenton Consent for Treatment [id number] Normal [facility] Discharge Instructionson Discharge Instructions [id number] Normal [facility] ED Clinical Summaryon 2022 ED Clinical Summary (Inserted Image. Perla ble to display) [place] [id number] ED Clinical Summary Person Information Name: JAM TOSCANO [facility] Age: 58 Years : 1965 Sex: Male Language: Kosovan PCP: Jose L Lackey MD Marital Status: [...] 10/23/2023 15:54:39 10/23/2023 15:54:39 10/23/2023 15:54:39 ADDRESS: [address] [place] [address] [facility] [id number] PHYS DOC NOTES: MEDICAL INFORMATION: Prescriptions Given: New Medications [id number], [address] [place], [place] [id number], [phone] acetaminophen-oxycodone (acetaminophen-oxycodone 325 mg-5 mg Tab) 1 [...] That Have Changed [id number], [address] [place], [place] [id number], [phone] START: ondansetron (Zofran ODT 4 mg Tab-Dis) [...] up: With: Address: When: Otilia Layne Mark [facility], [address] [phone] Business (1) In 3 days 12 (more content not included)... Normal [facility] ED Note-Physicianon 10-23-20 ED Note-Physician Basic [...] and Complexity of Problems Differential Diagnosis: [] [facility] Data External documents reviewed: [] My [...] pain, # 20 tab(s), Refills(s) 0, Pharmacy: [id number], 168, cm, 10/23/23 13:41:00 EST, Height/Length Dosing, 75.1, kg, 10/23/23 13:41:00 EST, Weight Dosing ondansetron, 4 mg = 2 mL, Injection, IV Push, Once, Stop date 10/23/23 14:30:00 EST, STAT, Start date 10/23/23 14:30:00 EST, 10/23/23 14:30:00 EST ondansetron, 4 mg = 1 tab(s), Oral, q8hr, PRN Nausea/Vomiting, # 30 tab(s), Refills(s) 0, Pharmacy: [id number], 168, cm, 10/23/23 13:41:00 EST, Height/Length Dosing, 75.1, kg, 10/23/23 13:41:00 EST, Weight Dosing Sodium Chloride 0.9% intravenous solution, 1,000 mL, Soln-IV, IV, Once, Stop date 10/23/23 14:29:00 EST, STAT, Start date 10/23/23 14:29:00 EST, Infuse over 61, minute(s) tamsulosin, 0.4 mg = 1 cap(s), Oral, Daily, # 10 cap(s), Refills(s) 0, Pharmacy: [facility][id number], 168, cm, 10/23/23 13:41:00 EST, Height/Length Dosing, 75.1, k (more content not included)... Normal [facility] Comment on above: Result Comment: Elec [...] these instructions at home: Medicines ? Take affu-bml-qaizslp and prescription medicines only as told by [...] recommendations from (more content not included)... Normal [facility] ED Patient Summaryon 023 ED Patient Summary (Inserted Image. Perla ble to display) [place] [id number] Patient Discharge Instructions Person Information Name: JAM TOSCANO Age: 58 Years Arrival Date: 10/23/2023 13:30:39 Discharge Diagnosis: Kidney stone on left side Primary Care Physician: Jose L Lackey MD Provider Information Primary Provider: Zoila Castillo M.D. Advanced Yard Operator:None The exam and treatment you received in the Emergency Department were for an urgent problem and are not intended as complete care. It is important that you follow up with a doctor, nurse practitioner, or physician?s school office assistant for ongoing care. If your symptoms [...] Instructions: With: Address: When: Otilia Layne [address] [place], [place] [phone] Business (1) In 3 days 10/26/2023 Comments: Follow-up with urology for further evaluation of your left-sided kidney stones. With: Address: When: Jose L Ziyad [address] [place] [address] [place] [phone] Business (1) In 3 days 10/26/2023 Comments: [...] opioids can be used to help relieve zqsnjzab-wh-yhbbij pain and are often prescribed following a [...] your pharma (more content not included)... Normal [facility] Hep Func Panelon 10-23-2023 Bilirubin.indirect [Mass or moles/Vol] UTC Abnormal 0.1-0.9 [facility] Comment on above: Result Comment: Resu lt verified by Discern Rule. Performed result UT (Unable to Calculate) was sent as an Alpha code due the inability to calculate a valid numeric value. Performed By: #### 2 551787, 4486137, 6139679, 0752815, 90377106, 2003460 ####[facility] [address] [place] [address] Albumin [Mass/Vol] 3.5 g/dL Normal 3.3-5.0 [facility] Comment on above: Performed By: #### 2 480061, 2186679, 5930430, 4772878, 28902058, 2945886 ####[facility] [address] [place] [address] Albumin/Globulin (S) [Mass conc ratio] 1.0 Low 1.1-2.2 [facility] Comment on above: Performed By: #### 2 497538, 2123352, 2918166, 9856194, 32421342, 4251558 ####[facility] [address] [place] [address] ALP [Catalytic activity/Vol] 194 Int._Unit/L High 21-98 [facility] Comment on above: Performed By: #### 2 838999, 2158201, 2273474, 1062579, 41871194, 0485499 ####[facility] [address] [place] [address] ALT No additional P-5'-P [Catalytic activity/Vol] 32 Int._Unit/L Normal 6-46 [facility] Comment on above: Performed By: #### 2 825424, 1610433, 5420362, 7505245, 81381363, 9195674 ####[facility] [address] [place] [address] AST [Catalytic activity/Vol] 34 Int._Unit/L Normal 5-43 [facility] Comment on above: Performed By: #### 2 895101, 9731737, 5808445, 4541515, 27615336, 3901201 ####[facility] [address] [place] [address] Bilirubin [Mass/Vol] 0.4 mg/dL Normal 0.0-1.1 [facility] Comment on above: Performed By: #### 2 243392, 6182332, 1153344, 2482272, 14790406, 7742369 ####[facility] [address] [place] [address] Globulin (S) [Mass/Vol] 3.7 g/dL Normal 1.4-4.0 [facility] Comment on above: Performed By: #### 2 594889, 9564748, 5167488, 9758489, 22483624, 9929681 ####[facility] [address] [place] [address] Protein [Mass/Vol] 7.2 g/dL Normal 6.0-7.8 [facility] Comment on above: Performed By: #### 2 119808, 2373847, 1596186, 0123266, 90297061, 8987511 ####[facility] [address] [place] [address] Bilirubin.direct [Mass/Vol] mg/dL Normal 0.1-0.4 [facility] Comment on above: Performed By: #### 2 273544, 4392186, 5804249, 3774231, 28043898, 7635738 ####[facility] [address] [place] [address] Lipase Levelon 10-23-2023 Lipase [Catalytic activity/Vol] 31 U/L Normal 13-58 [facility] Comment on above: Performed By: #### 2 874183, 4824701, 4076494, 3534931, 57966158, 6947130 #### [facility] [address] [place] [address] Physician Orderon 10-23-2023 Physician Order [id number]#1.00TIFF Normal [facility] UA With Cult Reflexon 2022 Bacteria LM Ql (Urine sed) 1+ /HPF Abnormal Trace [facility] Comment on above: Performed By: #### 1 6238858 #### [facility] [address] [place] [address] Bilirubin Ql (U) Negative Normal Negative [facility] Comment on above: Performed By: #### 1 9699452 #### [facility] [address] [place] [address] Clarity (U) CLEAR Normal Clear [facility] Comment on above: Performed By: #### 1 9763724 #### [facility] [address] [place] [address] Color (U) YELLOW Normal Yellow [facility] Comment on above: Performed By: #### 1 7092064 #### [facility] [address] [place] [address] Epithelial cells.squamous LM.HPF (Urine sed) [#/Area] 0-2 Normal 0-2 [facility] Comment on above: Performed By: #### 1 3559866 #### [facility] [address] [place] [address] Glucose Test strip (U) [Mass/Vol] Negative Normal Negative [facility] Comment on above: Performed By: #### 1 4612847 #### [facility] [address] [place] [address] Hemoglobin Ql (U) 3+ Abnormal Negative [facility] Comment on above: Performed By: #### 1 3863801 #### [facility] [address] [place] [address] Ketones (U) [Mass/Vol] Negative Normal Negative [facility] Comment on above: Performed By: #### 1 6765978 #### [facility] [address] [place] [address] [place].plasma/[place].RB C (Bld) [Mass ratio] 4-20 Normal 0-3 [facility] Comment on above: Performed By: #### 1 0995604 #### [facility] [address] [place] [address] Mucus Ql (Urine sed) TRACE Normal [facility] Comment on above: Performed By: #### 1 9791880 #### [facility] [address] [place] [address] Nitrite Ql (U) Negative Normal Negative [facility] Comment on above: Performed By: #### 1 9036813 #### [facility] [address] [place] [address] pH (U) 6.0 [pH] Invalid Interpretation Code 5.0-9.0 [facility] Comment on above: Performed By: #### 1 4437262 #### [facility] [address] [place] [address] Protein (U) [Mass/Vol] TRACE Abnormal Negative [facility] Comment on above: Performed By: #### 1 [id number] #### [facility] [address] [place] [address] Specific gravity (U) [Rel density] 1.010 Invalid Interpretation Code 1.005-1.03 0 [facility] Comment on above: Performed By: #### 1 [id number] #### [facility] [address] [place] [address] Type of Urine collection method Clean Catch Normal [facility] Comment on above: Performed By: #### 1 [id number] #### [facility] [address] [place] [address] Urobilinogen Qn (U) 0.2 {Rosina'U}/dL Normal 0.0-1.0 [facility] Comment on above: Performed By: #### 1 [id number] #### [facility] [address] [place] [address] WBC Auto Ql (U) TRACE Abnormal Negative [facility] Comment on above: Performed By: #### 1 [id number] #### [facility] [address] [place] [address] WBC LM.HPF (Urine sed) [#/Area] 0-5 Normal 0-5 [facility] Comment on above: Performed By: #### 1 [id number] #### [facility] [address] [place] [address] eGFRon 10-23-2023 GFR/1.73 sq M.predicted among non-blacks MDRD (S/P/Bld) [Vol rate/Area] 102 mL/min/1.73 m2 Normal >=59 [facility] Comment on above: Order Comment: Order added by Discern Expert. Result Comment: Governor Assembler Hydraulic clark kidney disease could be indicated at eGFR's of less than 60 mL/min/1.73m2. Kidney failure is indicated at less than 15 mL/min/1.73m2. Performed By: #### 2 [id number] ####[facility] [address] [place] [address] Physician Orderon 07-02-2023 Physician Order [id number]:1 [id number] Normal [facility] LIPID PROFILEon 02-11-2023 CHOL-HDL RATIO NORM SEE BELOW Normal [facility] Comment on above: Result Comment: 3.3 - 4.4 LOW RISK 4.4 - 7.1 AVERAGE RISK 7.1 - 11.0 MODERATE RISK >11.0 HIGH RISK Performed By: #### L CASEY LIVER #### [facility] [address] [place] [address] Dr. Rj Miller Cholesterol [Mass/Vol] 99 mg/dL Normal <=200 [facility] Comment on above: Performed By: #### L CASEY LIVER #### [facility] [address] [address] [address] Rj Miller Cholesterol in HDL [Mass/Vol] 44 mg/dL Normal 40-60 [facility] Comment on above: Performed By: #### L CASEY, LIVER #### [facility] [address] [place] [address] Dr. Rj Miller Cholesterol in LDL [Mass/Vol] 45.4 mg/dL Normal [facility] Comment on above: Performed By: #### L IPID, LIVER #### [facility] [address] [place] [address] Dr. Rj Miller Cholesterol.total/Cholest carlos in HDL [Mass ratio] 2.3 {ratio} Normal [facility] Comment on above: Performed By: #### L IPID, LIVER #### [facility] [address] [place] [address] Dr. Rj Miller HDL NORMAL > or = 60 mg/dl - LO W CARDIOVASCULAR RISK <40 mg/dl - HIGH CARDIOVASCULAR RISK Normal [facility] Comment on above: Performed By: #### L IPID, LIVER #### [facility] [address] [place] [address] Dr. Rj Miller LDL CALC NORMAL SEE BELOW Normal [facility] Comment on above: Result Comment: <100 mg/dl OPTIMAL 100 - 129 mg/dl NEAR OR ABOVE OPTIMAL 130 - 159 mg/dl BORDERLINE HIGH 160 - 189 mg/dl HIGH >190 mg/dl VERY HIGH Performed By: #### L IPID, LIVER #### [facility] [address] [place] [address] Dr. Rj Miller Triglyceride [Mass/Vol] 48 mg/dL Normal <=150 [facility] Comment on above: Performed By: #### L IPID, LIVER #### [facility] [address] [place] [address] Dr. Rj Miller VLDL CALC 9.6 mg/dL Normal [facility] Comment on above: Performed By: #### L IPID, LIVER #### [facility] [address] [place] [address] Dr. Rj Miller LIVER PROFILEon 02-11-2023 Albumin [Mass/Vol] 3.7 g/dL Normal 3.4-5.0 [facility] Comment on above: Performed By: #### L IPID, LIVER #### [facility] [address] [place] [address] Dr. Rj Miller Albumin/Globulin [Mass ratio] 1.0 {ratio} Normal [facility] Comment on above: Performed By: #### L IPID, LIVER #### [facility] [address] [place] [address] Dr. Rj Miller ALP [Catalytic activity/Vol] 210 U/L Critically high 46-116 [facility] Comment on above: Performed By: #### L IPID, LIVER #### [facility] [address] [place] [address] Dr. Rj Miller ALT [Catalytic activity/Vol] 50 U/L Normal 16-63 [facility] Comment on above: Performed By: #### L IPID, LIVER #### [facility] [address] [place] [address] Dr. Rj Miller AST [Catalytic activity/Vol] 42 U/L Critically high 15-37 [facility] Comment on above: Performed By: #### L IPID, LIVER #### [facility] [address] [place] [address] Dr. Rj Miller BILI, CONJUGATED 0.1 mg/dL Normal 0.0-0.2 [facility] Comment on above: Performed By: #### L IPID, LIVER #### [facility] [address] [place] [address] Dr. Rj Miller Bilirubin [Mass/Vol] 0.3 mg/dL Normal 0.2-1.0 [facility] Comment on above: Performed By: #### L IPID, LIVER #### [facility] [address] [place] [address] Dr. Rj Miller Globulin (S) [Mass/Vol] 3.7 g/dL Normal [facility] Comment on above: Performed By: #### L IPID, LIVER #### [facility] [address] [place] [address] Dr. Rj Miller Protein [Mass/Vol] 7.4 g/dL Normal 6.4-8.2 [facility] Comment on above: Performed By: #### L IPID, LIVER #### [facility] [address] [place] [address] Dr. Rj Miller 25-hydroxyvitamin D3 [Mass/V ol]on 01-14-2023 Vitamin D 25 [place] 40.2 ng/mL 30 - 100 ng/mL [facility] MRI LSPINE WO CONon 11-24-19 23 MRI [...] complex. 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 [address] [address] [address] Rj Miller Basophils/100 WBC (Bld) 0.5 % Normal 0.2-2.0 [facility] Comment on above: Performed By: #### C BC #### [facility] [address] [address] [address] Rj Miller EO # 0.2 103/ul Normal 0.0-0.7 [facility] Comment on above: Performed By: #### C BC #### [facility] [address] [address] [address] Rj Miller Eosinophils/100 WBC (Bld) 1.8 % Normal 0.9-7.0 [facility] Comment on above: Performed By: #### C BC #### [facility] [address] [address] [address] Rj Miller Erythrocyte distribution width (RBC) [Ratio] 13.6 % Normal 11.0-15.0 [facility] Comment on above: Performed By: #### C BC #### [facility] [address] [address] [address] Rj Miller Hematocrit (Bld) [Volume fraction] 41.3 % Critically low 42.0-54.0 [facility] Comment on above: Performed By: #### C BC #### [facility] [address] [place] [address] Dr. Rj Miller Hemoglobin (Bld) [Mass/Vol] 14.1 g/dL Normal 14.0-18.[address] [facility] Comment on above: Performed By: #### C BC #### [facility] [address] [place] [address] Dr. Rj Miller IG # 0.02 10e3/ul Normal 0.00-0.[address] [facility] Comment on above: Performed By: #### C BC #### [facility] [address] [place] [address] Dr. Rj Miller IG % 0.2 % Normal 0.0-0.[address] [facility] Comment on above: Performed By: #### C BC #### [facility] [address] [place] [address] Dr. Rj Miller LYMPH # 2.4 103/ul Normal 1.2-3.[address] [facility] Comment on above: Performed By: #### C BC #### [facility] [address] [place] [address] Dr. Rj Miller Lymphocytes/100 WBC (Bld) 29.5 % Normal 20.5-60.[address] [facility] Comment on above: Performed By: #### C BC #### [facility] [address] [place] [address] Dr. Rj Miller MANUAL DIFF REQ NO Normal [facility] Comment on above: Performed By: #### C BC #### [facility] [address] [place] [address] Dr. Rj Miller MCH (RBC) [Entitic mass] 31.1 pg Normal 25.9-34.[address] [facility] Comment on above: Performed By: #### C BC #### [facility] [address] [place] [address] Dr. Rj Miller MCHC (RBC) [Mass/Vol] 34.1 g/dL Normal 29.9-35.[address] [facility] Comment on above: Performed By: #### C BC #### [facility] [address] [place] [address] Dr. Rj Miller MCV (RBC) [Entitic vol] 91.0 fL Normal 80.0-94.0 [facility] Comment on above: Performed By: #### C BC #### [facility] [address] [place] [address] Dr. Rj Miller MONO # 0.7 103/ul Normal 0.3-0.8 [facility] Comment on above: Performed By: #### C BC #### [facility] [address] [place] [address] Dr. Rj Miller Monocytes/100 WBC (Bld) 8.3 % Normal 1.7-12.0 [facility] Comment on above: Performed By: #### C BC #### [facility] [address] [place] [address] Dr. Rj Miller NEUT # 4.9 103/ul Normal 1.4-6.5 [facility] Comment on above: Performed By: #### C BC #### [facility] [address] [place] [address] Dr. Rj Miller Neutrophils/100 WBC (Bld) 59.7 % Normal 43.0-75.0 [facility] Comment on above: Performed By: #### C BC #### [facility] [address] [place] [address] Dr. Rj Miller Platelet mean volume (Bld) [Entitic vol] 8.8 fL Critically low 9.5-13.5 [facility] Comment on above: Performed By: #### C BC #### [facility] [address] [place] [address] Dr. Rj Miller PLT 288 103/ul Normal 150-[address] [facility] Comment on above: Performed By: #### C BC #### [facility] [address] [place] [address] Dr. Rj Miller RBC 4.54 106/ul Critically low 4.70-6.10 [facility] Comment on above: Performed By: #### C BC #### [facility] [address] [place] [address] Dr. Rj Miller WBC 8.2 103/ul Normal 4.0-11.0 [facility] Comment on above: Performed By: #### C BC #### [facility] [address] [place] [address] Dr. Rj Miller Covid-19 PCR (CVDTB)on SARS-CoV-2 (COVID-19) RNA BERNARDO+probe Ql (Unsp spec) Not detected Normal NOT DETECTED [facility] Comment on above: Result Comment: When diagnostic [...] for this test is supported by the Cream Cheese Maker of Health and Human Service's declaration that [...] used). Performed By: #### C VDTBH #### [facility] [address] [place] [address] Dr. Rj Miller LIPASEon 09-24-2022 Lipase [Catalytic activity/Vol] 17.0 U/L Critically low 73.0-393.[address] [facility] Comment on above: Performed By: #### C MP, LIPA, HSTROPN #### [facility] [address] [place] [address] Dr. Rj Miller PROF 14(COMP METB)on 022 Albumin [Mass/Vol] 3.8 g/dL Normal 3.4-5.[address] [facility] Comment on above: Performed By: #### C MP, LIPA, HSTROPN #### [facility] [address] [place] [address] Dr. Rj Miller Albumin/Globulin [Mass ratio] 1.0 {ratio} Normal [facility] Comment on above: Performed By: #### C MP, LIPA, HSTROPN #### [facility] [address] [place] [address] Dr. Rj Miller ALP [Catalytic activity/Vol] 180 U/L Critically high 46-116 [facility] Comment on above: Performed By: #### C MP, LIPA, HSTROPN #### [facility] [address] [place] [address] Dr. Rj Miller ALT [Catalytic activity/Vol] 38 U/L Normal 16-[address] [facility] Comment on above: Performed By: #### C MP, LIPA, HSTROPN #### [facility] [address] [place] [address] Dr. Rj Miller Anion gap [Moles/Vol] 8.7 mmol/L Normal [facility] Comment on above: Performed By: #### C MP, LIPA, HSTROPN #### [facility] [address] [place] [address] Dr. Rj Miller AST [Catalytic activity/Vol] 28 U/L Normal 15-37 [facility] Comment on above: Performed By: #### C MP, LIPA, HSTROPN #### [facility] [address] [place] [address] Dr. Rj Miller Bilirubin [Mass/Vol] 0.4 mg/dL Normal 0.2-1.0 [facility] Comment on above: Performed By: #### C MP, LIPA, HSTROPN #### [facility] [address] [place] [address] Dr. Rj Miller Calcium [Mass/Vol] 8.9 mg/dL Normal 8.5-10.[address] [facility] Comment on above: Performed By: #### C MP, LIPA, HSTROPN #### [facility] [address] [place] [address] Dr. Rj Miller Chloride [Moles/Vol] 103 mmol/L Normal 98-[address] [facility] Comment on above: Performed By: #### C MP, LIPA, HSTROPN #### [facility] [address] [place] [address] Dr. Rj Miller CO2 [Moles/Vol] 26.0 mmol/L Normal 21.0-32.0 [facility] Comment on above: Performed By: #### C MP, LIPA, HSTROPN #### [facility] [address] [place] [address] Dr. Rj Miller Creatinine [Mass/Vol] 0.88 mg/dL Normal 0.70-1.30 [facility] Comment on above: Performed By: #### C MP, LIPA, HSTROPN #### [facility] [address] [place] [address] Dr. Rj Miller EGFR-AF GHANAIAN >60 Normal >=60 [facility] Comment on above: Performed By: #### C MP, LIPA, HSTROPN #### [facility] [address] [place] [address] Dr. Rj Miller EGFR-NON AF GHANAIAN >60 Normal >=60 [facility] Comment on above: Performed By: #### C MP, LIPA, HSTROPN #### [facility] [address] [place] [address] Dr. Rj Miller Globulin (S) [Mass/Vol] 3.8 g/dL Normal [facility] Comment on above: Performed By: #### C MP, LIPA, HSTROPN #### [facility] [address] [place] [address] Dr. Rj Miller Glucose [Mass/Vol] 116 mg/dL Critically high 74-106 [facility] Comment on above: Performed By: #### C MP, LIPA, HSTROPN #### [facility] [address] [place] [address] Dr. Rj Miller Potassium [Moles/Vol] 3.7 mmol/L Normal 3.5-5.1 [facility] Comment on above: Performed By: #### C MP, LIPA, HSTROPN #### [facility] [address] [place] [address] Dr. Rj Miller Protein [Mass/Vol] 7.6 g/dL Normal 6.4-8.2 [facility] Comment on above: Performed By: #### C MP, LIPA, HSTROPN #### [facility] [address] [address] [address] Rj Miller Sodium [Moles/Vol] 134 mmol/L Critically low 136-[address] [facility] Comment on above: Performed By: #### C MP, LIPA, HSTROPN #### [facility] [address] [address] [address] Rj Miller Urea nitrogen [Mass/Vol] 13.0 mg/dL Normal 7.0-18.0 [facility] Comment on above: Performed By: #### C MP, LIPA, HSTROPN #### [facility] [address] [place] [address] Dr. Rj Miller Urea nitrogen/Creatinine [Mass ratio] 14.8 mg/mg Normal [facility] Comment on above: Performed By: #### C MP, LIPA, HSTROPN #### [facility] [address] [address] [address] Rj Miller TROPONIN, HIGH SENSITIVITYon 09-24-2022 HSTROP 10.1 pg/mL Normal 4.0-76.1 [facility] Comment on above: Result Comment: CUT- OFF POINTS HAVE BEEN ESTABLISHED BASED ON THE FOURTH UNIVERSAL DEFINITIONS OF MYOCARDIAL INFARCTION. THE UPPER REFERENCE LIMIT (URL) OF TROPONIN, DEFINED THE 99TH PERCENTILE OF cTnI DISTRIBUTION IN A REFERENCE POPULATION, HAS BEEN CONFIRMED THE DECISION THRESHOLD FOR [place] DIAGNOSIS. Performed By: #### C MP, LIPA, HSTROPN #### [facility] [address] [address] [address] Rj Miller XR CSPINE 2_3 VIEWSon [...] JENNY TAPIA Date: 2022-09-24 07:20 Normal [facility] Basic Metabolic Panelon - Calcium [Mass/Vol] 8.7 mg/dL Normal 8.2-10.2 [facility] Comment on above: Performed By: #### B MP #### [address] Chloride [Moles/Vol] 107 mmol/L Normal 95-114 [facility] Comment on above: Performed By: #### B MP #### [address] CO2 [Moles/Vol] 23.3 mmol/L Normal 22.0-30.0 [facility] Comment on above: Performed By: #### B MP #### [address] Creatinine [Mass/Vol] 0.80 mg/dL Normal 0.64-1.27 [facility] Comment on above: Performed By: #### B MP #### [address] Creatinine Clr Calc Pharmacy 101.34 [facility] Comment on above: Result Comment: PERF ORMED BY: [place] [address] PATHOLOGIST ASSOCIATE LOAN OFFICER MARGO MINOR M.D. Performed By: #### B MP #### [address] Estimated GFR ( David > 60 Normal [facility] Comment on above: Result Comment: GFR estimated reference range: According to KDOQI guidelines, <60 ml/min/1.73m2 is sufficient to diagnose a patient with chronic kidney disease. Performed By: #### B MP #### [address] Estimated GFR (Non- Am > 60 Normal [facility] Comment on above: Performed By: #### B MP #### [facility] [address] Glucose [Mass/Vol] 101 mg/dL High 70-100 [facility] Comment on above: Result Comment: [place] Glucose Reference Range is dependent on time and content of last meal. Glucose of more than 200 mg/dL in a nonstressed, ambulatory subject supports the diagnosis of Diabetes Mellitus. ADA recommended reference range Performed By: #### B MP #### [facility] [address] Potassium [Moles/Vol] 4.3 mmol/L Normal 3.5-5.1 [facility] Comment on above: Performed By: #### B MP #### [facility] [address] Sodium [Moles/Vol] 138 mmol/L Normal 136-146 [facility] Comment on above: Performed By: #### B MP #### [facility] [address] Urea nitrogen [Mass/Vol] 13 mg/dL Normal 9-23 [facility] Comment on above: Performed By: #### B MP #### [facility] [address] [place] [address] [place] Calculi, Urinaryon 1 Ca Oxalate Dihydrate 60 % Normal . [facility] Comment on above: Performed By: #### C ALCULI #### [facility] , Ca Oxalate Monohydrate 30 % Normal . [facility] Comment on above: Performed By: #### C ALCULI #### [facility] , Color (U) Moy Normal . [facility] Comment on above: Performed By: #### C ALCULI #### [facility] , Comment: Normal . [facility] Comment on above: Result Comment: Phys chao questions regarding Calculi Analysis contact [facility] at: [phone]. Performed By: #### C ALCULI #### [facility] , Composition Normal . [facility] Comment on above: Result Comment: Perc entage (Represents the % composition) Performed By: #### C ALCULI #### [facility] , Disclaimer: Normal . [facility] Comment on above: Result Comment: This test was developed and its performance characteristics determined by [facility]. It has not been cleared or approved by the Food and Drug Administration. Performed at: [facility] [address] [place] [address] Dr Castillo, [place], [place] [id number] Crude Oil Treater: Anthony Grey MD, Phone: [phone] Performed By: #### C ALCULI #### [facility] , Hydroxyapatite 10 % Normal . [facility] Comment on above: Performed By: #### C ALCULI #### [facility] , Note Normal . [facility] Comment on above: Result Comment: Calc josafat report will follow via computer, mail or education sales consultant delivery. PERFORMED BY: [facility] [address] [place] [address] PATHOLOGIST ASSOCIATE LOAN OFFICER MARGO MINOR M.D. Performed By: #### C ALCULI #### [facility] , Photo Normal . [facility] Comment on above: Result Comment: Phot ograph will follow under a separate cover Performed By: #### C ALCULI #### [facility] , Size 6x6 Normal . [facility] Comment on above: Result Comment: Mult iple pieces received. Dimensions of the largest piece reported. Performed By: #### C ALCULI #### [facility] , Source Ureter Normal . [facility] Comment on above: Performed By: #### C ALCULI #### [facility] , Weight 110 Normal . [facility] Comment on above: Performed By: #### C ALCULI #### [facility] , ECG 12 lead ECGon 02-27-2021 ECG 12 lead ECG [facility] [place] [address] Electrocardiograph Report Signed Patient: Jam Toscano MR#: [id number] : 1965 Acct:[id number] Age/Sex: 55 / M ADM Date: 02/27/21 Loc: [place] Room: Type: [facility] Attending Dr: Rigo Gonzalez Jr, MD [...] DO 02/27/21 1110 Signed By: 02/27/21 1225 [facility] Mikey 02-27-2021 L ----- Specimen: [id number] Received: 02/27/21 Status: EMELI Flores Num: [id number] Spec Type: Surgical Subm Dr: Rigo Gonzalez Jr, MD, FACS Tissues: A Urinary Calculus (URETHRAL STONE) Procedures: Level 1 Gross Patient Age/Sex Location Account Attending Physician Jam Toscano 55/M [place] [id number] Rigo Gonzalez Jr, MD, FACS SPEC NUM: [id number] RECD: 02/27/21 STATUS: EMELI FLORES NUM: [id number] RADHA: 02/27/21- DR: Rigo Gonzalez Jr, MD, [...] Microscopic Description Gross examination only CPT Codes 54194 Specimen: [id number] Received: 02/27/21 Status: EMELI Flores Num: [id number] Spec Type: Surgical Subm Dr: Rigo Gonzalez Jr, MD, FACS Tissues: A Urinary Calculus (URETHRAL STONE) Procedures: Level 1 Gross Patient: Jam Toscano [id number] (Continued) Signed (signature on file) Silvestre Poon MD 02/28/21 3453 [facility] COVID-19 FRon 02-25-2021 SARS-CoV-2 (COVID-19) RNA BERNARDO+probe Ql (Unsp spec) Negative Normal Negative [facility] Comment on above: Order Comment: Healt hcare Worker?: N Result Comment: Ganesh earl: Negative Testing for SARS-CoV-2 by RT-PCR This test was developed and its performance characteristics determined by Kat, [employer] (BD) and validated at the [facility]. This test has not been FDA cleared [...] is terminated or revoked sooner. PERFORMED BY: [place] [address] PATHOLOGIST ASSOCIATE LOAN OFFICER MARGO MINOR M.D. Performed By: #### C OVID-19 [facility] #### [address] COVID-19 Positive/Negativeon 02-25-2021 COVID-19 Positive/Negative Negative Negative [facility] Comment on above: Reference: NegativeT esting for SARS-CoV-2 by RT-PCRThis test was developed and its performance characteristics determined by [employer], [employer] (BD) and validated at the [facility]. This test has not been FDA cleared [...] Otheron 02-25-2021 Coronavirus 2018 PCR Interp N/A [facility] XR ANKLE GENERAL 3V AP/LAT/O BL LTon 02-20-2021 [facility] DXA-AXIAL SKELETONon [facility] Vital Signs Date Time Vital Sign Value Performing Clinician Lucy litparmjit 10-05-2024 07:15-0500 Body mass index (BMI) [Ratio] 27.66 kg/m2 Darrian Dubon MD Work Phone: [facility] 10-05-2024 07:15-0500 Body weight 77.7 kg Darrian Dubon MD Work Phone: [facility] 10-05-2024 07:15-0500 Diastolic blood pressure 76 mm[Hg] Darrian Dubon MD Work Phone: [facility] 10-05-2024 07:15-0500 Heart rate 66 /min Darrian Dubon MD Work Phone: [facility] 10-05-2024 07:15-0500 Systolic blood pressure 128 mm[Hg] Darrian Dubon MD Work Phone: [facility] 05-09-2024 10:05-0400 Diastolic blood pressure 78 mm[Hg] Geoffrey Pretty Work Phone: [facility] 05-09-2024 10:05-0400 Heart rate 78 /min Rheu Maria De Jesus Work Phone: [facility] 05-09-2024 10:05-0400 Systolic blood pressure 121 mm[Hg] Rheu Maria De Jesus Work Phone: [facility] 05-09-2024 09:08-0400 Body mass index (BMI) [Ratio] 27.16 kg/m2 Nidia Weston APRN.CNP Work Phone: [facility] 05-09-2024 09:08-0400 Body temperature 98.4 [degF] Nidia Weston APRN.CNP Work Phone: [facility] 05-09-2024 09:08-0400 Body weight 76.3 kg Nidia Weston APRN.SHEETER HELPER Work Phone: [facility] 05-09-2024 09:08-0400 Diastolic blood pressure 79 mm[Hg] Nidia Weston APRN.SHEETER HELPER Work Phone: [facility] 05-09-2024 09:08-0400 Heart rate 89 /min Nidia Weston APRN.SHEETER HELPER Work Phone: [facility] 05-09-2024 09:08-0400 SaO2% (BldA) [Mass fraction] 97 % Nidia Weston APRN.SHEETER HELPER Work Phone: [facility] 05-09-2024 09:08-0400 Systolic blood pressure 118 mm[Hg] Nidia Weston APRN.SHEETER HELPER Work Phone: [facility] 03-14-2024 09:17-0400 Body mass index (BMI) [Ratio] 26.66 kg/m2 Nidia Weston APRN.SHEETER HELPER Work Phone: [facility] 03-14-2024 09:17-0400 Body weight 74.9 kg Nidia Weston APRN.SHEETER HELPER Work Phone: [facility] 03-14-2024 09:17-0400 Diastolic blood pressure 83 mm[Hg] Nidia Weston APRN.SHEETER HELPER Work Phone: [facility] 03-14-2024 09:17-0400 Heart rate 97 /min Nidia Weston APRN.SHEETER HELPER Work Phone: [facility] 03-14-2024 09:17-0400 SaO2% (BldA) [Mass fraction] 97 % Nidia Weston APRN.SHEETER HELPER Work Phone: [facility] 03-14-2024 09:17-0400 Systolic blood pressure 121 mm[Hg] Nidia Weston APRN.SHEETER HELPER Work Phone: [facility] Encounters Encounter Date Encounter Type Care Provider Facility Start: 05-22-2025 ambulatory Salmon Talal Sarmini Facility:[facility] Start: 12-14-2024 End: 12-14-2024 ambulatory Salmon Talal Fredomini Facility:[facility] Start: 11-21-2024 End: 11-23-2024 Telephone encounter Darrian Dubon MD Work Phone: Rheumatology Comment on above: Patient Update Start: 11-21-2024 End: 11-21-2024 ambulatory Marcin RAMÍREZ [place] Start: 11-21-2024 End: 11-21-2024 ambulatory Marcin RAMÍREZ Facility: [facility] Start: 10-05-2024 End: 10-05-2024 ambulatory JOSE L LACKEY Facility:[facility] Start: 10-05-2024 End: 10-05-2024 Office [...] 06-13-2024 End: 06-13-2024 ambulatory Salmon Gonzálezal Fredomini Facility:[facility] Start: 06-03-2024 End: 06-03-2024 ambulatory Luis Antonio Talal Fredomini [place] Start: 05-30-2024 End: 05-30-2024 ambulatory Salmon Talal Fredomini [place] Start: 05-09-2024 End: 05-09-2024 ambulatory [...] 03-14-2024 Subsequent hospital visit by physician Xr Count Includes [facility] [place] [facility] Comment on above: Rheumatoid arthritis 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) [M05.79] Start: 03-14-2024 End: 03-14-2024 ambulatory NIDIA WESTON Facility:[facility] Start: 03-14-2024 End: 03-14-2024 Patient encounter procedure Nidia Weston APRN.SHEETER HELPER Work Phone: Rheumatology Comment on above: 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); Vitamin D deficiency; Other osteoporosis without current pathological fracture; Encounter for medication review and counseling Start: 03-04-2024 End: 03-04-2024 ambulatory Salmon Talal Sarmini Facility:[facility] Start: 03-02-2024 End: 03-02-2024 ambulatory Salmon Talal Sarmini [facility] Start: 02-26-2024 End: 02-26-2024 ambulatory Salmon Talal Sarmini [facility] Start: 02-11-2024 Telephone encounter Nidia retana APRN.SHEETER HELPER Work Phone: Rheumatology Start: 01-12-2024 End: 01-12-2024 ambulatory JOSE L M HOY Facility:[facility] Start: 01-12-2024 End: 01-12-2024 ambulatory JOSE L M HOY Facility:[facility] Start: 12-11-2023 End: 12-11-2023 ambulatory Salmon Talal Sarmini Facility:[facility] Start: 12-01-2023 End: 12-01-2023 ambulatory JOSE L M HOY Facility:[facility] Start: 12-01-2023 End: 12-01-2023 ambulatory JOSE L LACKEY Facility:[facility] Start: 11-27-2023 End: 11-27-2023 Emergency department patient visit Kavon Johnson [place] Start: 11-04-2023 End: 11-04-2023 Emergency department patient visit Kavon Johnson Facility[place] Start: 10-23-2023 End: 10-23-2023 Emergency department patient visit Zoila Shirleybubba Facility[place] Start: 05-04-2023 Telephone encounter Nidia retana APRN.SHEETER HELPER Work Phone: Rheumatology Comment on above: Patient Update Start: 05-04-2023 End: 05-04-2023 ambulatory Nidia Weston APRN.SHEETER HELPER Work Phone: Rheumatology Comment on above: Rheumatoid [...] 05-04-2023 Telemedicine consultation with patient Nidia Weston APRN.SHEETER HELPER Work Phone: [facility] Start: 03-02-2023 End: 03-02-2023 ambulatory Nidia Weston APRN.SHEETER HELPER Work Phone: Rheumatology Comment on above: 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); Encounter to discuss test results; Counseling on health promotion and disease prevention; Ulcerative pancolitis (HCC); Other osteoporosis without current pathological fracture Start: 03-02-2023 End: 03-02-2023 Telemedicine consultation with patient Nidia Weston APRN.SHEETER HELPER Work Phone: [facility] Start: 02-11-2023 End: 02-12-[address] JOSE L LACKEY . Facility: Start: 01-14-2023 Telephone encounter Nidia retana APRN.SHEETER HELPER Work Phone: Rheumatology Comment on above: Outside Lab Results (Vit D ) Start: 12-29-2022 End: 12-29-2022 ambulatory Nidia Weston APRN.SHEETER HELPER Work Phone: Rheumatology Comment on above: 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); Vitamin D deficiency; Encounter to discuss test results; Encounter for medication review and counseling; Counseling on health promotion and disease prevention; Other osteoporosis without current pathological fracture Start: 12-29-2022 End: 12-29-2022 Telemedicine consultation with patient Nidia Villalobos Enrico MOSERSHEETER HELPER Work Phone: [facility] Start: 11-24-2022 End: 11-25-[address] JOSE L LACKEY . Facility:[facility] Start: 11-06-2022 End: 11-07-[address] JOSE L LACKEY . Facility:[facility] Start: 09-24-2022 End: 09-24-[address] JOSE L LACKEY . Facility:[facility] Start: 09-23-2022 End: 09-23-2022 Subsequent hospital visit by physician Bone Density Count Includes [facility] Radiology Comment on above: Other osteoporosis w ithout current pathological fracture [M81.8] Start: 02-10-2022 Telephone encounter Darrian Florez MD Work Phone: Rheumatology Comment on above: Results Start: 02-25-2021 End: 02-25-2021 Patient encounter procedure Rigo Gonzalez -Pre-Surgical Testing Start: 02-20-2021 End: 02-20-2021 Subsequent hospital visit by physician Xr Count Includes [facility] [place] [facility] Comment on above: Seropositive rheumat oid arthritis (HCC) [M05.9] Start: 08-22-2020 End: 08-22-2020 Subsequent hospital visit by physician Bone Density Count Includes [facility] De [facility] Radiology Comment on above: Rheumatoid arthritis 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) [M05.79] Procedures Date Procedure Procedure Detail Performing Clinician Start: 03-14-2024 Radex hand minimum 3 views Nidia Weston APRN.SHEETER HELPER Work Phone: Start: 01-12-2023 VITAMIN D 25 HYDROXY Am parmjit Weston APRN.SHEETER HELPER Work Phone: Start: 09-23-2022 Dxa bone density [...] Start: 12-01-2026 Diabetes Screening Diabetes Screenin anjali [facility] Start: 06-06-2025 End: 06-06-2025 Patient encounter procedure Radiology Comment on above: Seropositive rheumat oid arthritis (HCC) [M05.9] Return for May 2025 for RA and OP and review of DXA. Start: 05-23-2025 End: 05-23-2025 ambulatory 05/23/2025 8:00 AM EDT Results Only [facility] [address] [place] [address] [place] [address] labs [facility] Comment on above: labs Start: 05-16-2025 End: 08-15-2025 25-hydroxyvitamin D3 [Mass/volume] in Serum or Plasma VITAMIN D 25 HYDROXY Lab Routine Seropositive rheumatoid arthritis (HCC) Ulcerative pancolitis (HCC) Other osteoporosis without current pathological fracture History of bisphosphonate therapy Expected: 05/16/2025, Expires: 08/15/2025 [facility] Comment on above: Expected: 05/16/2025 , Expires: 08/15/2025 Start: 05-16-2025 End: 08-15-2025 C reactive protein [Mass/volume] in Serum or Plasma C-REACTIVE PROTEIN Lab Routine Seropositive rheumatoid arthritis (HCC) Ulcerative pancolitis (HCC) Expected: 05/16/2025, Expires: 08/15/2025 [facility] Comment on above: Expected: 05/16/2025 , Expires: 08/15/2025 Start: 05-16-2025 End: 08-15-2025 CBC W Auto Differential panel - Blood COMPLETE BLOOD COUNT AND DIFFERENTIAL Lab Routine Seropositive rheumatoid arthritis (HCC) Rheumatoid arthritis 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) On sulfasalazine therapy Ulcerative pancolitis (HCC) Expected: 05/16/2025, Expires: 08/15/2025 [facility] Work Phone: Comment on above: Expected: 05/16/2025 , Expires: 08/15/2025 Start: 05-16-2025 End: 08-15-2025 Collagen crosslinked C-telopeptide [Mass/volume] in Serum or Plasma C TELOPEPTIDE, BETA Lab Routine Other osteoporosis without current pathological fracture History of bisphosphonate therapy Expected: 05/16/2025, Expires: 08/15/2025 [facility] Comment on above: Expected: 05/16/2025 , Expires: 08/15/2025 Start: 05-16-2025 End: 08-15-2025 Renal function 2000 panel - Serum or Plasma RENAL FUNCTION PANEL Lab Routine Other osteoporosis without current pathological fracture History of bisphosphonate therapy Expected: 05/16/2025, Expires: 08/15/2025 [facility] Comment on above: Expected: 05/16/2025 , Expires: 08/15/2025 Start: 02-14-2025 End: 02-14-2025 Patient encounter procedure 02/14/2025 7:20 AM EDT Office Visit Rheumatology [address] [place] [address] Darrian Dubon MD [address] [address] Dubon Rheumatology Comment on above: future with dr. Vince melton Start: 10-05-2024 End: 10-05-2024 Patient encounter procedure 10/05/2024 7:20 AM EST Office Visit Rheumatology [address] [place] [address] Darrian Dubon MD [address] [place] [address] RA Rheumatology Comment on above: RA Start: 09-16-2024 End: 12-16-2024 25-hydroxyvitamin D3 [Mass/volume] in Serum or Plasma VITAMIN D 25 HYDROXY Lab Routine Vitamin D deficiency Other osteoporosis without current pathological fracture Expected: 09/16/2024 (Approximate), Expires: 12/16/2024 [facility] Comment on above: Expected: 09/16/2024 (Approximate), Expires: 12/16/2024 Start: 09-16-2024 End: 12-16-2024 C reactive protein [Mass/volume] in Serum or Plasma C-REACTIVE PROTEIN Lab Routine Rheumatoid arthritis 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) Expected: 09/16/2024 (Approximate), Expires: 12/16/2024 [facility] Work Phone: Comment on above: Expected: 09/16/2024 (Approximate), Expires: 12/16/2024 Start: 09-16-2024 End: 12-16-2024 Erythrocyte sedimentation rate SEDIMENTATION RATE, WESTERGREN Lab Routine Rheumatoid arthritis 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) Expected: 09/16/2024 (Approximate), Expires: 12/16/2024 [facility] Comment on above: Expected: 09/16/2024 (Approximate), Expires: 12/16/2024 Start: 09-16-2024 End: 12-16-2024 Renal function 2000 panel - Serum or Plasma RENAL FUNCTION PANEL Lab Routine Rheumatoid arthritis 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) Other osteoporosis without current pathological fracture Expected: 09/16/2024 (Approximate), Expires: 12/16/2024 [facility] Comment on above: Expected: 09/16/2024 (Approximate), Expires: 12/16/2024 Start: 07-17-2024 Influenza vaccination [facility] Start: 05-09-2024 End: 05-09-2024 ambulatory 05/09/2024 9:30 AM EDT Infusion [facility] Infusion [address] [place] [address] Return labs in 1 month, for reclast and ov in 1-2 months after labs Infusion Comment on above: Return labs in 1 thu, for reclast and ov in 1-2 months after labs Start: 05-09-2024 End: 05-09-2024 Patient encounter procedure 05/09/2024 9:00 AM EDT Office Visit Rheumatology [address] [facility] [place] [address] Nidia Weston, VAMP CREASER.SHEETER HELPER [address] [facility] [place] [address] Return labs in 1 month, for reclast and ov in 1-2 months after labs Rheumatology Comment on above: Return labs in 1 thu, for reclast and ov in 1-2 months after labs Start: 2024 RSV Vaccine (1 - 1-d ose 60+ series) RSV Vaccine (1 - 1-dose 60+ series) [facility] Start: 2024 RSV Vaccine (1 - Ris k 60-74 years 1-dose series) RSV Vaccine (1 - Risk 60-74 years 1-dose series) [facility] Start: 04-13-2024 End: 07-13-2024 25-hydroxyvitamin D3 [Mass/volume] in Serum or Plasma VITAMIN D 25 HYDROXY Lab Routine Rheumatoid arthritis 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) Vitamin D deficiency Expected: 04/13/2024 (Approximate), Expires: 07/13/2024 [facility] Comment on above: Expected: 04/13/2024 (Approximate), Expires: 07/13/2024 Start: 04-13-2024 End: 07-13-2024 C reactive protein [Mass/volume] in Serum or Plasma C-REACTIVE PROTEIN Lab Routine Rheumatoid arthritis 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) Expected: 04/13/2024 (Approximate), Expires: 07/13/2024 [facility] Comment on above: Expected: 04/13/2024 (Approximate), Expires: 07/13/2024 Start: 04-13-2024 End: 07-13-2024 Erythrocyte sedimentation rate SEDIMENTATION RATE, WESTERGREN Lab Routine Rheumatoid arthritis 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) Expected: 04/13/2024 (Approximate), Expires: 07/13/2024 [facility] Comment on above: Expected: 04/13/2024 (Approximate), Expires: 07/13/2024 Start: 04-13-2024 End: 07-13-2024 Renal function 2000 panel - Serum or Plasma RENAL FUNCTION PANEL Lab Routine Rheumatoid arthritis 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) Expected: 04/13/2024 (Approximate), Expires: 07/13/2024 [facility] Work Phone: Comment on above: Expected: 04/13/2024 (Approximate), Expires: 07/13/2024 Start: 04-13-2024 End: 04-13-2025 XR Hand - bilateral PA and Lateral and Oblique XR HAND GENERAL 3V PA/LAT/OBL BILATERAL Radiology Routine Rheumatoid arthritis 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) Expected: 04/13/2024 (Approximate), Expires: 04/13/2025 [facility] Comment on above: Expected: 04/13/2024 (Approximate), Expires: 04/13/2025 Start: 11-16-2023 Behavioral Health Screening Behavioral Health Screening [facility] Start: 11-16-2023 Depression Assessment Depression Ass essment [facility] Start: 08-22-2023 DIABETES SCREEN DIABETES SCREEN [facility] Start: 07-17-2023 Influenza vaccination [facility] Start: 07-04-2023 End: 09-03-2023 25-hydroxyvitamin D3 [Mass/volume] in Serum or Plasma VITAMIN D 25 HYDROXY Lab Routine Other osteoporosis without current pathological fracture Expected: 07/04/2023 (Approximate), Expires: 09/03/2023 [facility] Work Phone: Comment on above: Expected: 07/04/2023 (Approximate), Expires: 09/03/2023 Start: 07-04-2023 End: 09-03-2023 MONOCLONAL PROT UR W/INTERP MONOCLONAL PROT UR W/INTERP Lab Routine Elevated serum immunoglobulin free light chain level Expected: 07/04/2023 (Approximate), Expires: 09/03/2023 [facility] Work Phone: Comment on above: Expected: 07/04/2023 (Approximate), Expires: 09/03/2023 Start: 07-04-2023 End: 09-03-2023 Renal function 2000 panel - Serum or Plasma RENAL FUNCTION PANEL Lab Routine Other osteoporosis without current pathological fracture Expected: 07/04/2023 (Approximate), Expires: 09/03/2023 [facility] Work Phone: Comment on above: Expected: 07/04/2023 (Approximate), Expires: 09/03/2023 Start: 12-29-2022 End: 02-28-2023 25-hydroxyvitamin D3 [Mass/volume] in Serum or Plasma VITAMIN D 25 HYDROXY Lab Routine Vitamin D deficiency Expected: 12/29/2022, Expires: 02/28/2023 [facility] Work Phone: Comment on above: Expected: 12/29/2022 , Expires: 02/28/2023 Start: 11-16-2022 DEPRESSION ASSESSMENT DEPRESSION ASS ESSMENT [facility] Start: 07-17-2022 Influenza vaccination INFLUENZA (#1) [facility] Start: 07-17-2021 Influenza vaccination INFLUENZA (#1) [facility] Start: 04-15-2021 COVID-19 VACCINE (2 - Starr risk 3-dose series) COVID-19 VACCINE (2 - Starr risk 3-dose series) [facility] Start: 04-15-2021 COVID-19 VACCINE (2 - Starr risk series) COVID-19 VACCINE (2 - Starr risk series) [facility] Start: 05-03-2020 PNEUMOCOCCAL (3 - PPSV23 if available, else PCV20) PNEUMOCOCCAL (3 - PPSV23 if available, else PCV20) [facility] Start: 05-03-2020 PNEUMOCOCCAL (3 - PPSV23 or PCV20) PNEUMOCOCCAL (3 - PPSV23 or PCV20) [facility] Start: 05-03-2020 Pneumococcal vaccination Pneumococcal Vaccine (3 of 3 - PPSV23 or PCV20) [facility] Start: 05-03-2020 Pneumococcal Vaccine : 50+ (3 of 3 - PPSV23, PCV20 or PCV21) Pneumococcal Vaccine: 50+ (3 of 3 - PPSV23, PCV20 or PCV21) [facility] Start: 02-11-2020 Adult depression screening assessment DEPRESSION SCREENING [facility] Start: 2019 PROSTATE CANCER SCREENING DISCUSSION PROSTATE CANCER SCREENING DISCUSSION [facility] Start: 2019 Prostate specific antigen measurement Prostate Cancer Screening Discussion [facility] Start: 2014 SHINGRIX VACCINE (1 of 2) SHINGRIX VACCINE (1 of 2) [facility] Start: 2009 COLOGUARD (FIT-DNA) COLOGUARD (FIT-D NA) [facility] Start: 2009 Colonoscopy COLONOSCOPY [facility] Start: 2009 COLORECTAL CANCER SCREENING COLORECTAL CANCER SCREENING [facility] Start: [address] COLONOGRAPHY [facility] Start: 2009 FECAL OCCULT BLOOD FECAL OCCULT BLOO D [facility] Start: 2009 Screening for malign ant neoplasm of colon [facility] Start: 2009 SIGMOIDOSCOPY SIGMOIDOSCOPY [facility] Start: 1999 Lipid panel Lipid Screening [facility] Start: 1999 LIPID SCREEN LIPID SCREEN [facility] Start: 1983 SHINGRIX VACCINE (1 of 2) SHINGRIX VACCINE (1 of 2) [facility] Start: 1983 Urine microalbumin profile [facility] Start: 1982 Anxiety Screening Anxiety Screening [facility] Start: 1982 Depression Screening Depression Scre ening [facility] Start: 1982 HIV SCREENING HIV SCREENING [facility] Start: 1982 HIV screening HIV Screening [facility] Start: 1982 MMR Vaccine (1 of 2 - Risk 2-dose series) MMR Vaccine (1 of 2 - Risk 2-dose series) [facility] Start: 1974 Meningococcal B Vaccine: Consider Based On Risk (1 of 4 - Increased Risk) Meningococcal B Vaccine: Consider Based On Risk (1 of 4 - Increased Risk) [facility] End: 11-04-2025 BD DXA TRABECULAR BONE SCORE (TBS) BD DXA TRABECULAR BONE SCORE (TBS) Radiology Routine Seropositive rheumatoid arthritis (HCC) Ulcerative pancolitis (HCC) Other osteoporosis without current pathological fracture History of bisphosphonate therapy 1 Occurrences starting 10/05/2024 until 11/04/2025 [facility] Comment on above: 1 Occurrences starti ng 10/05/2024 until 11/04/2025 End: 11-04-2025 DXA Skeletal system.axial Views for bone density DXA-AXIAL SKELETON Radiology Routine Seropositive rheumatoid arthritis (HCC) Ulcerative pancolitis (HCC) Other osteoporosis without current pathological fracture History of bisphosphonate therapy 1 Occurrences starting 10/05/2024 until 11/04/2025 [facility] Comment on above: 1 Occurrences starti ng 10/05/2024 until 11/04/2025 [facility] Immunizations Immunization Date Immunization Notes Care Provider Feng diaz 06-09-2022 zoster vaccine recombinant Nidia Enrico VAMP CREASER.SHEETER HELPER Work Phone: [facility] 03-17-2022 zoster vaccine recombinant Nidia Enrico VAMP CREASER.SHEETER HELPER Work Phone: [facility] 09-27-2020 Influenza, injectabl e, Madin [place] Canine Kidney, preservative free, quadrivalent Nidia Enrico VAMP CREASER.SHEETER HELPER Work Phone: [facility] 09-27-2020 influenza virus vacc ine, unspecified formulation Nidia Weston VAMP CREASER.SHEETER HELPER Work Phone: [facility] 10-28-2019 Influenza, injectabl e, Madin [place] Canine Kidney, quadrivalent with preservative Darrian Dubon MD Work Phone: [facility] 08-29-2019 influenza, injectabl e, quadrivalent, preservative free Nidia Weston VAMP CREASER.SHEETER HELPER Work Phone: [facility] 08-15-2016 influenza, injectabl e, quadrivalent, preservative free Darrian Dubon MD Work Phone: [facility] 12-08-2015 hepatitis A and hepa titis B vaccine Darrian Dubon MD Work Phone: [facility] 11-01-2015 pneumococcal conjuga te vaccine, 13 valent Darrian Duobn MD Work Phone: [facility] 07-31-2015 influenza, seasonal, injectable, preservative free Darrian Dubon MD Work Phone: [facility] 05-31-2015 hepatitis A and hepa titis B vaccine Darrian Dubon MD Work Phone: [facility] 05-03-2015 hepatitis A and hepa titis B vaccine Darrian Dubon MD Work Phone: [facility] 05-03-2015 pneumococcal polysaccharide vaccine, 23 valent Darrian SanchezAshkar MD Work Phone: [facility] Payers Date Payer Category Payer Medicare DEVOTED MEDICARE [facility] [id number] 2021-Present [phone] [address] [place] [address] O [id number] 2021 Unknown [id number] 2011 Medicare [id number]. [id number] 1964 Unknown [id number] 2.16.840.1.155511.3.579. 2.593 1964 Unknown [id number] 2.16.840.1.677001.3.579. 2.593 1964 Unknown [id number] 2.16.840.1.205681.3.579. 2.593 1964 Unknown [id number] 2.16.840.1.409372.3.579. 2.593 1964 Unknown [id number] 2.16.840.1.625686.3.579. 2.1259 1964 Unknown [id number] 2.16.840.1.207265.3.579. 2.1259 1964 Unknown [id number] 2.16.840.1.531028.3.579. 2.1259 1964 Unknown [id number] 2.16.840.1.065698.3.579. 2.1259 1964 Unknown [id number] 2.16.840.1.548386.3.579. 2.727 1964 Unknown [id number] 2.16.840.1.110487.3.579. 2.727 1964 Unknown [id number] 2.16.840.1.610900.3.579. 2.727 1964 Unknown [id number] 2.16.840.1.647137.3.579. 2 1964 Unknown [id number] 2.16.840.1.059591.3.579. 2 1964 Unknown [id number] 2.16.840.1.425738.3.579. 2 1964 Unknown [id number] 2.16.840.1.278989.3.579. 2 1964 Unknown [id number] 2.16.840.1.469283.3.579. 2 1964 Unknown [id number] 2.16.840.1.392000.3.579. 1964 Unknown [id number] 2..840.1.189068.3.579. 2 1964 Unknown [id number] 2..840.1.858596.3.579. 2 1964 Unknown [id number] 2.16.840.1.295354.3.579. 2 1964 Unknown [id number] 2.16.840.1.416030.3.579. 2 1964 Unknown [id number] 2.16.840.1.919015.3.579. 2 1964 Unknown [id number] 2.16.840.1.995617.3.579. 2 1964 Unknown [id number] 2.16.840.1.836730.3.579. Private Health Insurance Self Pay [id number] Self-pay Self Pay [id number] Social History Date Type Detail Facility Tobacco smoking stat [facility] Unknown if ever smoked [facility] Start: 1965 Sex Assigned At Male F [facility] Start: 01-24-2020 End: 12-01-2023 Tobacco smoking status NHIS Ex-smoker [facility] Start: 01-24-2020 End: 12-01-2023 Tobacco use and exposure Smokeless tobacco non-user [facility] Start: 02-20-2021 End: 05-09-2024 Alcohol intake Lifetime non-drinker (finding) [facility] Start: 01-24-2020 History SDOH Alcohol Frequency 1 [facility] Start: 01-24-2020 End: 12-01-2023 Tobacco Comment quit in 2011 [facility] Start: 1965 Sex Assigned At Not on file [facility] Start: 01-19-2022 End: 01-29-2022 Exposure to SARS-CoV-2 (event) Unable to assess [facility] History of tobacco use Current smoker [facility] Start: 01-24-2020 End: 05-04-2023 History of Social function [facility] Start: 01-24-2020 End: 05-04-2023 Alcohol Use Disorder Identification Test - Consumption [AUDIT-C] [facility] How often to you hav e a drink containing alcohol? Never [facility] Average Number of Drinks Not on file [facility] Start: 07-23-2020 End: 02-20-2021 Exposure to SARS-CoV-2 (event) Not sure [facility] Goals Date Patient Goal Desired Activity /State [...] apt with me. thank you kindly, fa [facility] 11-23-2024 Miscellaneous Notes Thank you for trying. [...] Please offer appt with Dr Dubon or CLAY HOISTER, if patient still interested. Thank you for [...] apt with me or any rheum ANGÉLICA (CLAY HOISTER or [place]) who has opening soon. thank you kindly, fa -Pt returning call to office. Pt identified by name and date. Pt given message as detailed below and verbalized understanding. -States the only trauma/injury he has experienced recently is that he stubbed his RT middle toe 3 days ago. States this is web press roll tender with movement. Denies any change in [...] feet/fingers/shoulders Please advise documented in this encounter [facility] 11-23-2024 Telephone encounter Note Patient returned call and can not make it today, seen his PCP for the issue.please advise. [facility] 11-23-2024 Telephone encounter Note Hi Dr. Dubon [...] Jordyn KELLER November 23, 2024 9:03 AM [facility] 11-23-2024 Telephone encounter Note Please offer appt with Dr Dubon or CLAY HOISTER, if patient still interested. [facility] 11-22-2024 Telephone encounter Note Thank you for [...] apt with me or any rheum ANGÉLICA (CLAY HOISTER or [place]) who has opening soon. thank you kindly, fa [facility] 11-22-2024 Note Urology Office/Clini c Note Chief Complaint referral HPI Staff 59yr old male referred by Dr. Lackey for kidney stones w/ KUB. KUB done at [facility] on 11/14/24. Pt has seen Dr. Gonzalez [...] [facility] [address], [place] [address]- Additional Instructions: f/u pending CT Patient Education [...] Gross hematuria Hea (more content not included)... [facility] Comment on above: Result Comment: Elec [...] toe 3 days ago. States this is web press roll tender with movement. Denies any change in [...] Pt then apologized and ended the call. [facility] 11-21-2024 Note Patient Education Nephrology Dietary Guidelines [...] ? 8 oz (237 mL) of milk, capcirl-nwiwrdnibmqx-jvbwv milk, and calcium-fortifiedfruit juice. Calcium-fortified means that [...] Spinach (cooked), rhubarb, beets, sweet potatoes, and Croatian chard. ? Peanuts. ? Potato chips, occitan fries, and baked potatoes with skin on. ? Nuts and nut products. ? Chocolate. ??? If you regularly take a diuretic medicine, make sure to eat at least 1 or 2 servings of fruits or vegetables that are high in potassium each day. These include: ? Avocado. ? Banana. ? Morrow, prune, carrot, or tomato juice. ? Baked [...] fish oil, or vitamin B6. ??? Take imux-ihs-kdkhopd and prescription medicines only as told by your health (more content not included)... [facility] 11-21-2024 Telephone encounter Note Left message requesting return call. [facility] 11-21-2024 Telephone encounter Note Thank you for [...] had before ? thank you kindly, fa [facility] 11-21-2024 Telephone encounter Note Images from the [...] not completely. Pain: Bilateral feet/fingers/shoulders Please advise [facility] 10-05-2024 Instructions Darrian Dubon MD - 10/05/2024 7:56 AM EST -PLEASE NOTE THAT WE REVIEW ALL YOUR TEST RESULTS AT YOUR NEXT FOLLOW UP VISIT WITH YOU. IF ANY ABNORMAL LAB REQUIRES SOONER ATTENTION, WE WILL CONTACT YOU. -If you have signed up on [employer], we will release your test results through [employer]. I wish you the best of health [...] track your nutrition and calcium intake on www.The .tv Corporation.RCD Technology This provides macro and micronutrient intake and requirements. - You can track your calcium intake on 8aweek or any other calcium tracker of your [...] youtube and copy and paste this link: https://youBOLT Solutionsu.be/[email or web address] This is done by a Physical Medicine and Rehab doctor who is a bacteriology professor in [employer]. She completed a PhD at the [employer]. I hope you find it helpful. [...] hazelnuts, legumes, soybeans and other beans) - Roslyn (potatoes, avocados, almonds, peanuts) - Chromium (broccoli, [...] Eur J Clin Nutr 62, 155-161 (2007). https://doi.org/10.1038/sj.ejcn.018599 8 -Clyde Rosa, Trisha Lara, Bar De Leon et al. Isoflavone intervention and its impact on bone mineral density in postmenopausal women: a systematic review and meta-analysis of randomized controlled trials. Osteoporos Int (2022). https://doi.org/10.1007/r67404-115-626 43-y -Jack Finch, Trisha Lara, Andrez Grant. et al. Effects of isoflavone interventions on bone mineral density in postmenopausal women: a systematic review and meta-analysis of randomized controlled trials. Osteoporos Int 31, 1066-0409 (2020). https://doi.org/10.1007/m60143-965-379 76-z - Benefits of consuming soy in whole foods are listed in this article at the PCR website: https://www.pcrm.org/good-nutrition/nu trition-information/bmb-xhj-vwnkwd - Prunes have been reported to help [...] Am J Clin Nutr. 2021Aug 21;116(4):897-910. doi: 10.1093/ajcn/mjko152. PMID: 78664270. -Benefit to bone density and inflammation: Hebert WYMAN, Perrin, Glory SOLARES, Sivakumar ALDANA, Trey CUBA. The Role of Prunes in Modulating Inflammatory Pathways to Improve Bone Health in Postmenopausal Women. Adv Nutr. 2021Aug 17;13(5):2588-5125. doi: 10.1093/advances/yolz002. PMID: 23640374; PMCID: ZNL1697634. - Information on Vitamin K2: more recently [...] with the exception of Natto (a traditional Latvian food made from fermented soybeans) has high [...] of these foods, please consult with your Alternative Energy Technician or Physician first. Review of Osteoporosis medications [...] in the office. This medication is given longterm, indefinitely. Prolia should not be discontinued without [...] looked into transition therapy. Recent study from [facility] Slim et al, 04/11/2020 (PMID: 79923443.The study is ongoing, clinicaltrials.gov; [id number]), reported one infusion of IV Reclast did [...] initiated in patients who have had an FL or stroke in the preceding year or those considered high risk. We may need a clearance from a Infrastructure Tech prior to proceeding with this medication in [...] and the different available medications at the [place] [employer] website at: https://www.rheumatology.org/I-Am-A/Ernesto greennt-Caregiver/Diseases-Conditions/Os [...] milk, beans, lentils - Vegetables and Fruit: bok-mrain, turnips, broccoli, kale, collards, - Dairy products: [...] Osteoporosis Foundation) http://www.osteo.org/osteolinks.asp National Institutes of Health: 4-903-449-BONE The Calcium Information Center: Non-Dairy, Plant based Milk, can contain in1 glass up to 450 mg of calcium (300 to 450 mg) Exampled include Oat Milk, Flax Milk, Anderson Milk, Cashew Milk, Soy Milk, Peas Milk Examples of Food Sources of Calcium from NIH Food Milligrams (mg) per serving Percent DV* Soymilk, calcium-fortified, 8 ounces 299 30 Morrow juice, calcium-fortified, 6 ounces 261 26 Tofu, firm, made with calcium sulfate, cup* 253 25 Tofu, soft, made with calcium sulfate, cup* 138 14 Jhuft-ax-uvd cereal, calcium-fortified, 1 cup 100-1,000 10-100 Turnip greens, fresh, boiled, cup 99 10 Kale, raw, chopped, 1 cup 100 10 Kale, fresh, cooked, 1 cup 94 9 Cymro cabbage, bok marin, raw, shredded, 1 cup 74 7 Bread, white, 1 slice 73 7 Tortilla, corn, aazag-ym-jypz/marshall, one 6 diameter 46 5 Tortilla, flour, ikhtj-ut-ycav/marshall, one 6 diameter 32 3 Bread, whole-wheat, [...] daily with a meal; Certain patients require 7884-6100 international units daily and in patients deficient [...] bones. Studies show approximately 50% of [place] men and women are vitamin D deficient [...] of falling. Additional Information is available from: [facility] Osteoporosis Information: https://my.[facility].org/departm ents/orthopaedics-rheumatology/depts/o steoporosis-metabolic The Bone Health and Osteoporosis Foundation (formerly the National Osteoporosis Foundation) : https://www.bonehealthandosteoporosis. org International Osteoporosis Foundation: https://www.osteoporosis.foundation http://ods.od.nih.gov/factsheets/vitam ind.asp National Institutes of Health: 0-071-031-BONE The Calcium Information Center: I recommend following [...] track your nutrition and calcium intake on www.The .tv Corporation.RCD Technology This provides macro and micronutrient intake and [...] that features the Whole Plant Based diet, Slade over knives (see video online and visit website). Another movie that was recently released is: Eating You Alive (you can find it at ibeatyou) and The Backspaces ChangeGOGETMi / ?.?? movie Dr. Fauzia Ansari is a [facility] physician who has done research and published books, is an expert in Whole Plant based diet for prevention and reversal of heart disease. His website is MolecularMD. 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 Rock Velazco's Program for Reversing Diabetes, Your Body in Balance You can also watch YouTube channel : The Doc & Box Blank Machine Operator Helper Dr. Anthony Carlson has shown the benefit of a starch based whole food plant based diet to his Rheumatoid Arthritis patients, as well as patient with diabetes II, hypertension, obesity, multiple sclerosis, heart disease, acne, and other, his website: www.Nexopia.RCD Technology Dr. Yayo Allred is a renowned lead scientist, who has studied and researched the benefits of the Whole plant based diet. He has also researched the adverse effects of animal proteins on health. He presents many of his research findings in his book The [place] study. Dr. Gerber Becker has completed many research trials proving the reversal of diseases, such as heart disease and early prostate cancer, with healthy lifestyle and the Whole Plant based diet. Dr. Gerber Becker website is: www.carmenSpinX Technologies.RCD Technology His new book: Undo It, has evidence [...] videos and YouTube, for example https://youtu.be/aSgNkhgVtks and https://youBOLT Solutionsu.be/lXXXygDRyBU. He has written multiple books including: How Not To and How Not To Diet He is now working on his next book: How Not To Age Dr. Danitza Dash (from the [facility]), has articles on the following website: [place]ia For additional ideas on recipes, you could find additional information on practical to follow recipes by reading or watching online and YouTube such as: Box Blank Machine Operator Helper AJ, Cooking With Plants, The Vegan Corner (recipes from an Ghanaian Box Blank Machine Operator Helper), The Whole Foods Plant Based Cooking Show and visiting the provided websites for additional information on the whole plant based benefit and cooking recipes. You can also consider watching the vlogs of some of the plant based Athletes such as Graeme Kamara, Agustin Lundy on Scholar Rock. You can find very good recipes for [...] Dr. Jenny Degroot Lifestyle Medicine (is a Infrastructure Tech and Lifestyle Medicine Physician) -Sometimes it helps to start with a simple diet of potatoes, that Dr. Carlson calls Yarelis Carrie. You can learn more about that in his website: www.ADEA Cutters This is the website for Yarelis Carrie pdf : https://www.Glimmerglass Networks.RCD Technology/wp-content /uploads//Georgiana-Carrie_Website_Pr int_Version-1.pdf You can also read more on Dr. Carlson's website - When you goal is to lose weight, it is important to listen to your hunger cues. Don't eat until you are stuffed. As soon as you feel you are no longer hungry, stop eating. There is a Latvian saying that says Tammie Vega, meaning eat until you are 80% full. I say avoid eating past 80% of your stomach fullness. This originated from the city of [place], which is one of the sites reported in the Blue BiOxyDyn book, one of the highest cities in the world for having the most centenarians. Remember your stomach needs space and capacity for proper digestion of your food. Like a frozen food department manager or a spice blender, they have a limit for proper function, and should not be filled to the top. You can read more about that from the [facility] article Don t Eat Until You re Full ? Instead, Mind Your Tammie [place] , at https://health.[facility].org/don v-acg-unrsl-tmsxg-mzlv-wmorbvv-mind-yo td-jteo-asbxj-salvador-annie/ Most plants contain proteins and all essential [...] you will need to consult with a embroidery finisher to have further evaluation to exclude Celiac [...] - Gentle Yoga Anyone Can Do Anywhere www.Biocrates Life Sciences.RCD Technology/yoga Also on youtube: yoga with Karlie For women, especially after menopause, strength training is important. You can read more on that from Clare Morley, PhD at her website https://www.HALO2CLOUD and YouTube videos. If you are a beginner, it is best to start with a physical therapist or tangible personal property appraiser. There are also several Aps that offer virtual personal training 3- Good Sleep (poor sleep impacts everything, recommended sleep is 7 to 8 hrs. a night). Certain people may need more sleep, depending on their age and other conditions. Meditation and relaxation techniques have shown to help with improving sleep. Try to be consistent with your sleep. You can find more at the [facility] Website on : https://my.[facility].org/departm ents/wellness/store/go-well#sleep-tab 4- Stress management, be happy, [...] Calm Insight Timer Meditation Stress Free Now ([facility]). You can find more resources at the [facility] website at : https://my.[facility].org/departm ents/wellness/store/go-well#stress-iron e-tab There are many free youtube videos on guided meditation as well For Breathing techniques: You can watch John Carlisle and learn the breathing technique and its benefits by watching the following YouTube: https://Flagshship Fitness.be/4My8D-TTp68?si=-Xtdfr 4UpsJOUbDU. Learning about your awareness/spiritual being, is [...] work with a psychotherapist or behavioral health baseball coach. When having a psychiatric condition, it [...] or a higher dose. Raw: Garlic, Cilantro, [place] nuts, Pumpkin seeds, [place] seeds and Flax seed powder have been reported to help with certain metal detoxification such as mercury. [place]-3 plant based rich foods are good anti-inflammatory [...] the Whole Plant Based Diet, by watching Slade over [employer] movie and then review website. There are many other resources and educational information on the Whole plant based diet on the Internet and documentaries. There are other resources for wellness that you can also benefit from, such as the [facility] Wellness website, [facility] and includes Plant based and Mediterranean diet, yoga and meditation. Please avoid all dairy products. You could use non-dairy milk such as Flax milk, Cashew milk, Anderson milk, Rice milk, Oat milk or Hemp [...] below, just add the ingredients to your spice blender and blend: - Probably the healthiest smoothie is one that contains mostly green leafy vegetables (especially containing kale), some berries, flax seed and water. This might not flange turner to be sweet. You can add one or two pitted dates or a frozen banana for natural sweetness. Examples of healthy green smoothies, pack your spice blender (at least half way to 3/4) with a mix of green leafy veggies, then top your spice blender with fruits (such as banana or [...] risk for kidney stones. The same with pakistani chards and beet leaves. If you don't [...] of your health and wellbeing. At the [facility], we work as a team for your care, along with Nurse Practitioners, Physician Assistants, Nurses and Medical Assistants. It is a privilege and honor to serve you. Thank you for choosing [facility] for your healthcare. Sincerely, Darrian Dubon MD [...] usual activities immediately. documented in this encounter [facility] 10-05-2024 Note HNO ID: [id number] Author: DARRIAN DUBON MD Service: ? Author Type: Physician Type: Progress Notes Filed: 10/16/2024 19:47 Note Text: FOLLOW UP VISIT Patient's Name: Jam Erwin [facility] [id number] PCP: Jose L Lackey MD [address] [place] [address] Consult Requested by: Jose L Lackey MD [address] [facility] [address] Other physicians: Dairy Science Teacher prevBrittney Lebron MD (his prev. embroidery finisher left- Ronald Brown MD) ; Now following [...] No stiffness He is on sulfasalazine per embroidery finisher for his UC and this has been controlling his RA He is pleased with his treatment regimen He also states that his IBD is well controlled, states told is in remission, on Entyvio Doing exercise and working with tangible personal property appraiser at the gym and will be going [...] in IBD and is following with local embroidery finisher for that. Has been on Humira since Sep 2020 (started with 80 mg loading dose and since has been on 40 mg every 2 wks) He was pleased with Enbrel response to his RA and later was switched to Humira, reports has similar benefit and is pleased with response. His embroidery finisher switched him to Humira for optimal mgt of IBD and he feels this has helped his IBD better. Reports still gets 8 BM's a day, does not have BM at night, does not have to wake up from sleep. Has been following with his embroidery finisher for his UC Had colonoscopy 11/22/2021 with reported marked improvement in asc/transv/desc colon and severe active in rectum, histopath with active colitis with erosions. States Dr. Lebron has started him on rectal enemas. Recent colonoscopy with reported active colitis. He tells me that he continues to have multiple BM's; His embroidery finisher prescribed pred. course, completed recently. No jt [...] us, he is on Humira per his Dairy Science Teacher He is off Enbrel, was switched to Humira by his embroidery finisher. (previously was on Enbrel 25 mg twice a wk and has been in remission since on Enbrel and very pleased with his treatment regimen) He is on Humira 40 mg every 2 wks by his Dairy Science Teacher He is on sulfasalazine, Humira and mesalamine enemas per his embroidery finisher I have reviewed benefits of a whole food plant based diet He consumes dairy, cheese, sausage, hamburger. I have advised him on avoiding meats and dairy and reviewed reports and patient experience with flare of IBD and RA, as well as gastrointestinal dysbiosis. I advised him on a whole foods plant based diet. He has a spice blender (Wow! Stuff) and interested in making healthy smoothies and [...] I have ad (more content not included)... [facility] 10-05-2024 History of Present illness Narrative Images from the original note were not included. FOLLOW UP VISIT Patient's Name: Jam Erwin [facility] [id number] PCP: Jose L Lackey MD [facility] [place] [address] Consult Requested by: Jose L Lackey MD [address] [facility] [address] Other physicians: Dairy Science Teacher prev. Nel Lebron MD (his prev. embroidery finisher left- Ronald Brown MD) ; Now following [...] No stiffness He is on sulfasalazine per embroidery finisher for his UC and this has been controlling his RA He is pleased with his treatment regimen He also states that his IBD is well controlled, states told is in remission, on Entyvio Doing exercise and working with tangible personal property appraiser at the gym and will be going [...] in IBD and is following with local embroidery finisher for that. Has been on Humira since Sep 2020 (started with 80 mg loading dose and since has been on 40 mg every 2 wks) He was pleased with Enbrel response to his RA and later was switched to Humira, reports has similar benefit and is pleased with response. His embroidery finisher switched him to Humira for optimal mgt of IBD and he feels this has helped his IBD better. Reports still gets 8 BM's a day, does not have BM at night, does not have to wake up from sleep. Has been following with his embroidery finisher for his UC Had colonoscopy 11/22/2021 with reported marked improvement in asc/transv/desc colon and severe active in rectum, histopath with active colitis with erosions. States Dr. Lebron has started him on rectal enemas. Recent colonoscopy with reported active colitis. He tells me that he continues to have multiple BM's; His embroidery finisher prescribed pred. course, completed recently. No jt [...] us, he is on Humira per his Dairy Science Teacher He is off Enbrel, was switched to Humira by his embroidery finisher. (previously was on Enbrel 25 mg twice a wk and has been in remission since on Enbrel and very pleased with his treatment regimen) He is on Humira 40 mg every 2 wks by his Dairy Science Teacher He is on sulfasalazine, Humira and mesalamine enemas per his embroidery finisher I have reviewed benefits of a whole food plant based diet He consumes dairy, cheese, sausage, hamburger. I have advised him on avoiding meats and dairy and reviewed reports and patient experience with flare of IBD and RA, as well as gastrointestinal dysbiosis. I advised him on a whole foods plant based diet. He has a spice blender (Wow! Stuff) and interested in making healthy smoothies and [...] in this patient with known rheumatoid arthritis. Supervisor Matrix: CODY Transcribe Date/Time: Feb 20 2021 9:52A [...] site where has fallen arch. Has seen Quill Layer in the remote past for the fallen arch, not recently. Feels gets stiff when not moving as much. Denies any injury or trauma. Denies any pain to me today States his embroidery finisher has prescribed prednisone course due to IBD flare States after scope was told is flared. He is on sulfasalazine and budesonide and his embroidery finisher and since has switched him from Enbrel [...] Alk phos isoenz: liver fraction; followed by embroidery finisher He follows with his embroidery finisher for hi elev alk phos and AST and for bld with stools, Dr Brown: and states he started him on iron supplement States Dr. Brown prescribed metronidazole, for reported diarrhea. States felt it made a difference. States he gave him enemas and told that is for his ulcerative colitis and prescr. sulfasalazine. In 2019, has also followed with his embroidery finisher for blood with stools, and had flex sig and told he was inflamed from his Ulcerative colitis. [facility] had colonosc and EGD in 2018 [...] systems reviewed and are negative DXA Model: [employer] W [id number] SITE SCANNED: Lumbar spine and left hip [...] were all normal. He follows with his embroidery finisher for his ulcerative colitis and is on sulfasalazine. He was told by his embroidery finisher to avoid sun exposure due to this med, had skin itching last summer. He had evaluation for elevated AST and alk phos. Alk phos has improved and AST has been borderline elevated. I have advised him to f/u with his embroidery finisher for his elevated alk phos (liver fraction) States his embroidery finisher did an US of his liver twice and was told was normal. He denies any alcohol consumption or acetaminophens. His isoenzyme indicated predom. of liver origin. The patient reports that his embroidery finisher completed evaluation and told his liver is fine. His liver US was unremarkable . His anemia has resolved since his UC has been controlled. States saw his embroidery finisher, Dr. Lebron, recently and states told him [...] and denies hematuria or dysuria. DXA Model: [employer] W [id number] SITE SCANNED: Lumbar spine and left hip [...] states not bad . has seen a cotton dispatcher in the past, in [place], Dr. Whitfield. States used to be on [...] 500mg q 6hrs. Reports benefit and his embroidery finisher took him off the iron supplement as [...] Dactylitis: no H/o precedent/frequent infection(s): as above Enthesopathy/[place]'s/heel/plantar tenderness: no Skin thickening, psoriasis, photosensitivity, purpura: no Nail changes: no Alpecia, patchy: no; has MPB Eye inflammation: no SICCA: no Oral/nasal/genital ulcers: no GI problems-diarrhea/bleeding/IBD/Gluten intolerence/Dysphagia: as above Raynaud's phenomenon/digital ulcers: no Organ inv-Serositis: no Lung disease/ILD: no Myopathy/proximal muscle weakness: no Abnormal Urine or urethritis: no Renal disease: no SENIOR REGULATORY AFFAIRS SPECIALIST/PNS disease: no and denies MS HEME-Cytopenias/LAD/Clots: iron [...] Marital Status: Single denies children 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 Lackey Smoking: quit 2012 Alcohol as above IVDU: denies Industrial toxic exposures: denies FAMILY HISTORY: No family history on file. suspects his mother may have had RA Mother: CAD, CABG, COPD/emphysemia Father: passed from [facility] bother were smokers PERTINENT TESTS: Component Latest [...] Abs Lymph 1.00 - 4.00 k/uL 3.02 Grady% 9.7 Abs Grady 0.00 - 0.86 k/uL 0.79 Eosin% 0.0 [...] Negative Negative Ketones, Urine Negative Negative Specific Clute, Ur 1.005 - 1.030 1.008 Hemoglobin/Blood,Ur Negative 3+ (A) pH, Urine 4.5 - 8.0 6.0 Protein, Urine Negative mg/dL Negative Urobilinogen Normal Normal Nitrites Negative Negative Leukest Negative Negative Comments SEE COMMENT Urine Adan Comment SEE COMMENT WBC, Urine 0 - 5 /HPF 0-5 RBC, Urine 0 - 3 /HPF >25 (A) Sm Antibody <1.0 AI <0.2 ZIPPER IRONER Antibody <1.0 AI 1.2 (H) SSA Antibody <1.0 AI <0.2 SSB Antibody <1.0 AI <0.2 Centromere Ab <1.0 AI <0.2 Scleroderma Ab, IgG <1.0 AI <0.2 Milagro 1 Antibody <1.0 AI <0.2 Ribosomal ZIPPER IRONER <1.0 AI <0.2 Chromatin Antibody <1.0 AI [...] <12 Sm Antibody <1.0 AI <0.2 Ribosomal ZIPPER IRONER <1.0 AI <0.2 Chromatin Antibody <1.0 AI <0.2 SSA Antibody <1.0 AI <0.2 SSB Antibody <1.0 AI <0.2 ZIPPER IRONER Antibody <1.0 AI 1.2 Scleroderma Ab, IgG [...] FINDINGS CONSISTENT WITH CHRONIC SEVERE RHEUMATOID ARTHRITIS. Supervisor Matrix: KETTY Transcribe Date/Time: Aug 29 2015 12:56P ... Last XR Ankle - Impression Only XR ANKLE GENERAL 3V AP/LAT/OBL LT Exam End: 02/20/2021 8:42 AM (Final result) Impression: IMPRESSION: Arthritic changes demonstrating interval progression in this patient with known rheumatoid arthritis. Supervisor Matrix: CODY Transcribe Date/Time: Feb 20 2021 9:52A [...] developed and its performance characteristics determined by [facility] ([facility]). It has not been cleared or approved by the FDA. [facility] is regulated under CLIA as qualified [...] 147 53 - 334 mg/dL Final MPA De Motte, Serum Date Value Ref Range Status 08/19/2018 1,020 534 - 1,267 mg/dL Final MPA Lambda, Serum Date Value Ref Range Status 08/19/2018 551 253 - 653 mg/dL Final MPA De Motte/Lambda Ratio Date Value Ref Range Status 08/19/2018 [...] , Gender: Male SCANNER INFORMATION: DXA Model: [employer] W [id number] SITE SCANNED: Lumbar spine and left hip [...] machine for accurate comparison. FOR MORE INFORMATION: [facility]abolic [facility] Disease: www.ccf.org/arthritis/osteo National Osteoporosis Foundation: www.nof.org International Society of Clinical Densitometry www.iscd.org Supervisor Matrix: [id number] Transcribe Date/Time: Sep 23 2022 10:28A Dictated [...] involving multiple sites with positive rheumatoid factor ([facility]) Z79.899 On sulfasalazine therapy K51.00 Ulcerative pancolitis ([facility]) Comment: On SSZ and Entyvio, managed by [...] in patient's severe chronic Rheumatoid Arthritis. His embroidery finisher has switched him to Humira as he [...] to receive intermittent steroid therapy from his embroidery finisher. Pharmacologic therapy is still indicated and recommended, [...] Also received labs per Primary care physician, Dairy Science Teacher -The patient's embroidery finisher follows him for his UC, anemia and liver tests. He is on Entyvio and sulfasalazine per his Dairy Science Teacher RA med: none from rheum, doing well on sulfasalazine, prescribed by GI (He was prev. on Enbrel 25 mg sq twice a week, or may switch to Humira if his embroidery finisher switched him to Humira TNF inhibitor therapy, [...] on sulfasalazine for his IBD per his embroidery finisher OP med: Received Reclast infusion, 5 mg IV on 05/09/2024 well tolerated Further infusions will be determined based on recheck DXA and CTX, or if on systemic steroids. As previously discussed, his OP med of choice is IV Reclast Oral bisphosphonate contraindicated due to his IBD and gastrointestinal disease. Osteoporosis was likely due to previous longterm steroid therapy by other physicians over the [...] atypical and subtroch. fracture of femur with superintendent container terminal use of bisphosphonates/alendronate and anti-resorptive agents, there [...] wished to proceed. Previous orders -CONSULT TO JOURNEYMAN GLAZIER -CONSULT TO PODIATRY Provided referral to OT for assistive devices, exercises to preserve left function Referral to tiler for foot/ankle deformities and callus care, inserts/braces/orthotics, [...] which included preparing to see the patient, [id number] patient care, completing clinical documentation, obtaining and/or [...] appropriate immunization recommended. -Continued follow up with embroidery finisher for IBD management and monitoring for liver [...] Fischer MD Jose L Lackey MD [address] [facility] [address] documented in this encounter [facility] 06-03-2024 Note Progress Note-Physic sumaya Patient: JAM TOSCANO Age: 59 years Sex: Male : 1965 Associated Diagnoses: None Author: Kody Ramos Jr., DO Postoperative Information Postoperative disposition: Postoperative disposition: Home. Optimetrix number: Optimetrix number [id number]. Anesthetic utilized: General. Physical Examination Vital Signs [...] Ambulatory Surgery Unit, and To home ). [facility] Comment on above: Result Comment: Elec [...] unsweetened, w/added ascorbic acid 1 cup 0.5 Morrow 1 cup 0.7 Vegetables Cooked Green beans 1 cup 4.0 Carrots 1/2 cup sliced 2.3 Peas 1 cup 8.8 Potato (baked, with skin) 1 medium potato 3.8 Raw Catlin (with peel) 1 cucumber 1.5 Lettuce 1 [...] 8.7 Peanuts 1/2 cup 7.9 [facility] (more content not included)... [facility] 06-03-2024 Note Colonoscopy Procedur e Report Patient: JAM TOSCANO Age: 59 years Sex: Male : 1965 Associated Diagnoses: None Author: Asim Jaquez MD Pre-Procedure Procedure Date 06/03/2024 10:42:00 . Procedure Type: Colonoscopy with removal of tumor(s), polyp(s), or other lesion(s) by cold snare technique. Procedure provider Performed by Asim Jaquez MD. Current history and physical Documented on chart. Colonoscopy ([id number]) on 02/26/2024 at 58 Years. Colonoscopy ([id number]) on 03/23/2023 at 57 Years. Cystoscopy ([id number]) on 02/04/2021 at 55 Years. Colonoscopy ([id number]). right hip replacement (087435423). replacement on both knees (134097841). Hernia repair (65638743).. Past Medical History Resolved Extreme obesity ([id number]) : Resolved. Ulcerative colitis (779501784): Resolved.. Family History . Procedure History Colonoscopy ([id number]) on 02/26/2024 at 58 Years. Colonoscopy ([id number]) on 03/23/2023 at 57 Years. Cystoscopy ([id number]) on 02/04/2021 at 55 Years. Colonoscopy (123567123). right hip replacement (807974464). replacement on both knees (129409339). Hernia repair (45194120).. Colorectal neoplasm risk assessment High risk Previous [...] (Inserted Image. Perla (more content not included)... [facility] Comment on above: Other Comment: Sheila trinh Attachment - attachment storage system not supported [id number] Can be viewed in source [facility] Attachment - attachment storage system not supported [id number] Can be viewed in source systemMiss[facility] Attachment - attachment storage system not supported [id number] Can be viewed in source systemMissum[facility] Attachment - attachment storage system not supported [id number] Can be viewed in source systemMiss[facility] Attachment - attachment storage system not supported [id number] Can be viewed in source systemMiss[facility] Attachment - attachment storage system not supported [id number] Can be viewed in source systemMiss[facility] Attachment - attachment storage system not supported [id number] Can be viewed in source systemMissum[facility] Attachment - attachment storage system not supported [id number] Can be viewed in source systemMissum[facility] Attachment - attachment storage system not supported [id number] Can be viewed in source systemMissum[facility] Attachment - attachment storage system not supported [id number] Can be viewed in source systemMissum[facility] Attachment - attachment storage system not supported [id number] Can be viewed in source systemMissum[facility] Attachment - attachment storage system not supported [id number] Can be viewed in source systemMissum[facility] Attachment - attachment storage system not supported [id number] Can be viewed in source systemMissumass [facility] Attachment - attachment storage system not supported [id number] Can be viewed in source system 06-03-2024 [...] in GI clinic in 1-2 after discharge [facility] Comment on above: Other Comment: Sheila trinh Attachment - attachment storage system not supported [id number] Can be viewed in source systemMissing Attachment - attachment storage system not supported [id number] Can be viewed in source systemMissing Attachment - attachment storage system not supported [id number] Can be viewed in source systemMissumass memorial [facility] Attachment - attachment storage system not supported [id number] Can be viewed in source systemMissumass memorial [facility] Attachment - attachment storage system not supported [id number] Can be viewed in source systemMissumass memorial [facility] Attachment - attachment storage system not supported 0215986 Can be viewed in source systemMissumass memorial [facility] Attachment - attachment storage system not supported [id number] Can be viewed in source systemMissumass memorial [facility] Attachment - attachment storage system not supported [id number] Can be viewed in source systemMidenver springs Attachment - attachment storage system not supported [id number] Can be viewed in source system 06-03-2024 [...] All Problems Acute diarrhea / SNOMED CT 6044975526 / Confirmed Adenomatous colon polyp / SNOMED CT 1762805501 / Confirmed Bladder mass / SNOMED CT 0464518558 / Confirmed Bladder stone / SNOMED CT 850271053 / Confirmed BPH with urinary obstruction / SNOMED CT 6125868898 / Confirmed Continuous severe abdominal pain / SNOMED CT 82373079 / Confirmed Gross hematuria / SNOMED CT 380660841 / Confirmed Heartburn / SNOMED CT 35893379 / Confirmed Hematochezia / SNOMED CT 3803760163 / Confirmed History of colon polyps / SNOMED CT 6962867548 / Confirmed Hyperlipemia / SNOMED CT 72342290 / Confirmed Incomplete bladder emptying / SNOMED CT 029142608 / Confirmed Kidney stones / SNOMED CT 732259328 / Confirmed Prostate calculus / SNOMED CT 068298395 / Confirmed Rectal bleed / SNOMED CT 017582969 / Confirmed Ulcerative colitis, universal / SNOMED CT 8505110677 / Confirmed Crowley ulcerative colitis / SNOMED CT 2896119153 / Confirmed Urethral stone / SNOMED CT 21802850 / Confirmed Resolved: Extreme obesity / SNOMED CT [id number] Resolved: Ulcerative colitis / SNOMED CT 674722416 Canceled: Ulcerative colitis / SNOMED CT 038284441 Histories Past Medical History: Resolved Extreme obesity ([id number]) : Resolved. Ulcerative colitis (592182466): Resolved. Procedure history: Colonoscopy ([id number]) on 02/26/2024 at 58 Years. Colonoscopy ([id number]) on 03/23/2023 at 57 Years. Cystoscopy ([id number]) on 02/04/2021 at 55 Years. Colonoscopy ([id number]). right hip replacement (408892506). replacement on both knees (936597104). Hernia repair (23694303). Social History Social & Psychosocial Habits Alcohol [...] quit more Smokele (more content not included)... [facility] Comment on above: Result Comment: Elec tronically Signed By: Kody Ramos Jr., DO.br\Date and Time Signed: 06/03/24 09:03 EDT 05-09-2024 Note HNO ID: [id number] Author: TERESA FALLON RN Service: ? Author [...] 5. Taking antibiotics for current infection? No [facility] 05-09-2024 History of Present illness Narrative FOR [...] current infection? No documented in this encounter [facility] 05-09-2024 Instructions Nidia Weston APRN.SHEETER HELPER - 05/09/2024 9:45 AM EDT -PLEASE NOTE THAT WE REVIEW ALL YOUR TEST RESULTS AT YOUR NEXT FOLLOW UP VISIT WITH YOU. IF ANY ABNORMAL LAB REQUIRES SOONER ATTENTION, WE WILL CONTACT YOU. -If you have signed up on Nabsyst, we will release your test results through [employer]. I wish you the best of health [...] and sulfasalazine, but discuss first with your embroidery finisher. Supplements recommended Vitamin B12: 500 to 1000 [...] track your nutrition and calcium intake on www.The .[employer] This provides macro and micronutrient intake and requirements. - You can track your calcium intake on bizHiveometer.RCD Technology or any other calcium tracker of your [...] now for a cost, such as at www.jobandtalent. -When eating a whole food plant based [...] that features the Whole Plant Based diet, Slade over knives (see video online and visit website). Another movie that was recently released is: Eating You Alive (you can find it at ibeatyou) and The Backspaces ChangeGOGETMi / ?.?? movie Dr. Fauzia Ansari is a [facility] physician who is an expert in Whole Plant based diet. His website is MolecularMD. His research highlights the benefits of the Whole food plant based diet in reversing and preventing heart disease. Mrs. Ansari (his ) has a cookbook with many recipes on whole plant based food: The Prevent and Reverse Heart Disease cookbook. You can also consider reading his son, Eze Ansari's book: The Engine 2 cookbook Eze is a retired clay hoister who has helped many people get healthier [...] multiple free videos and YouTube, for example: https://youtu.be/wmwQirxL6s4 , https://youtu.be/CyGVHkqdl1l He has written multiple books, including Power [...] heart disease, acne, and other, his website: www.debra.RCD Technology Dr. Yayo Allred is a renowned lead scientist, who has studied and researched the benefits of the Whole plant based diet. He has also researched the adverse effects of animal proteins on health. He presents many of his research findings in his book The [place] study. Dr. Gerber Becker has completed many research trials proving the reversal of diseases, such as heart disease and early prostate cancer, with healthy lifestyle and the Whole Plant based diet. Dr. Gerber Becker website is: www.carmenSpinX Technologies.RCD Technology His new book: Undo It, has evidence based information and guide to following this healthy lifestyle. Dr. Cody Dillon has dedicated a website and additional time to reviewing all food related articles and research and presents them in his power point presentation and on his website at: nutritionfacts.org which is all free. Dr. Dillon has multiple free videos and YouTube, for example https://[employer]itness.MyWealth/aSgNkhgVtks and https://[employer]itness.MyWealth/lXXXygDRyBU. He has written multiple books including: How Not To and How Not To Diet He is now working on his next book: How Not To Age Dr. Danitza Dash (from the [facility]), has articles on the following website: Sleep.FM.RCD Technology Also, you could find additional information on practical to follow recipes by reading or watching online and YouTube such as: Box Blank Machine Operator Helper AJ, Cooking With Plants, The Vegan Corner (recipes from an Ghanaian Box Blank Machine Operator Helper), The Whole Foods Plant Based Cooking Show and visiting the provided websites for additional information on the whole plant based benefit and cooking recipes. You can also consider watching the vlogs of some of the plant based Athletes such as Fausto Ewing Derek on HAM-IT Nutrition. Dr. Maryan Holguin (a psychiatrist who [...] - Gentle Yoga Anyone Can Do Anywhere www.StorSimple/yoga Also on youtube: yoga with Karlie 3- [...] or a higher dose. Raw: Garlic, Cilantro, [place] nuts, Pumpkin seeds, [place] seeds and Flax seed powder have been reported to help with certain metal detoxification such as mercury. [place]-3 plant based rich foods are good anti-inflammatory [...] the Whole Plant Based Diet, by watching Slade over [employer] movie and then review website. There are many other resources and educational information on the Whole plant based diet on the Internet and documentaries. There are other resources for wellness that you can also benefit from, such as the [facility] Wellness website, [facility].org and includes Plant based and Mediterranean diet, yoga and meditation. Please avoid all dairy products. You could use non-dairy milk such as Flax milk, Cashew milk, Anderson milk, Rice milk, Oat milk or Hemp [...] Osteoporosis Foundation) http://www.osteo.org/osteolinks.asp National Institutes of Health: 7-997-658-BONE The Calcium Information Center: -Non-Dairy, Plant based Milk, can contain in1 glass up to 450 mg of calcium (300 to 450 mg) Exampled include Oat Milk, Flax Milk, Anderson Milk, Cashew Milk, Soy Milk, Peas Milk general health and well being Examples of Food Sources of Calcium from NIH Food Milligrams (mg) per serving Percent DV* Soymilk, calcium-fortified, 8 ounces 299 30 Morrow juice, calcium-fortified, 6 ounces 261 26 Tofu, firm, made with calcium sulfate, cup* 253 25 Tofu, soft, made with calcium sulfate, cup* 138 14 Rhnsn-tn-qqi cereal, calcium-fortified, 1 cup 100-1,000 10-100 Turnip greens, fresh, boiled, cup 99 10 Kale, raw, chopped, 1 cup 100 10 Kale, fresh, cooked, 1 cup 94 9 Cymro cabbage, bok marin, raw, shredded, 1 cup 74 7 Bread, white, 1 slice 73 7 Tortilla, corn, hcgxb-zd-jovc/marshall, one 6 diameter 46 5 Tortilla, flour, fvjso-ld-sfyi/marshall, one 6 diameter 32 3 Bread, whole-wheat, [...] daily with a meal; Certain patients require 2076-9335 iu daily and in patients deficient in [...] bones. Studies show approximately 50% of [place] men and women are vitamin D deficient [...] is/osteo/info.htm http://ods.od.nih.gov/factsheets/vitam ind.asp National Institutes of Health: 0-045-736-BONE The Calcium Information Center: Review of Osteoporosis [...] atypical and subtroch. fracture of femur with longterm use of bisphosphonates/alendronate and anti-resorptive agents, there [...] and answer all OP questions. At the [facility], we work as a team for your care, along with Nurse Practitioners, Physician Assistants, Nurses and Medical Assistants. It is a privilege and honor to serve you. Thank you for choosing The [facility] for your healthcare. Sincerely, Nidia Weston APRN.SHEETER HELPER documented in this encounter [facility] 05-09-2024 History of Present illness Narrative Follow [...] in patient's severe chronic Rheumatoid Arthritis. His embroidery finisher has switched him to Humira as he [...] IBD and intermittent steroid therapy from his embroidery finisher. Pharmacologic therapy is still indicated and recommended, [...] which included preparing to see the patient, ujlm-wu-oaqy patient care, completing clinical documentation, obtaining and/or [...] the care of your patient. Nidia Weston APRN.SHEETER HELPER cc Jose L Lackey MD, MD Patient Instructions -PLEASE NOTE THAT WE REVIEW ALL YOUR TEST RESULTS AT YOUR NEXT FOLLOW UP VISIT WITH YOU. IF ANY ABNORMAL LAB REQUIRES SOONER ATTENTION, WE WILL CONTACT YOU. -If you have signed up on Combined Effort, we will release your test results through Combined Effort. I wish you the best of health [...] and sulfasalazine, but discuss first with your embroidery finisher. Supplements recommended Vitamin B12: 500 to 1000 [...] track your nutrition and calcium intake on www.The .tv Corporation.RCD Technology This provides macro and micronutrient intake and requirements. - You can track your calcium intake on 8aweek or any other calcium tracker of your [...] now for a cost, such as at www.jobandtalent. -When eating a whole food plant based [...] track your nutrition and calcium intake on www.bizHiveometer.RCD Technology This provides macro and micronutrient intake and [...] that features the Whole Plant Based diet, Slade over knives (see video online and visit website). Another movie that was recently released is: Eating You Alive (you can find it at ibeatyou) and The Game Changers movie Dr. Fauzia Ansari is a [facility] physician who is an expert in Whole Plant based diet. His website is MolecularMD. His research highlights the benefits of the Whole food plant based diet in reversing and preventing heart disease. Mrs. Ansari (his ) has a cookbook with many recipes on whole plant based food: The Prevent and Reverse Heart Disease cookbook. You can also consider reading his son, Eze Ansari's book: The Engine 2 cookbook Eze is a retired clay hoister who has helped many people get healthier [...] multiple free videos and YouTube, for example: https://youtu.be/hdbZlfwC2a5 , https://youtu.be/EuZPSnjqm3g He has written multiple books, including Power [...] heart disease, acne, and other, his website: www.debra.RCD Technology Dr. Yayo Allred is a renowned lead scientist, who has studied and researched the benefits of the Whole plant based diet. He has also researched the adverse effects of animal proteins on health. He presents many of his research findings in his book The [place] study. Dr. Gerber Becker has completed many research trials proving the reversal of diseases, such as heart disease and early prostate cancer, with healthy lifestyle and the Whole Plant based diet. Dr. Gerber Bekcer website is: www.dagoberto.RCD Technology His new book: Undo It, has evidence based information and guide to following this healthy lifestyle. Dr. Cody Dillon has dedicated a website and additional time to reviewing all food related articles and research and presents them in his power point presentation and on his website at: nutritionfacts.org which is all free. Dr. Dillon has multiple free videos and YouTube, for example https://Flagshship Fitness.MyWealth/aSgNkhgVtks and https://youFIMBex.be/lXXXygDRyBU. He has written multiple books including: How Not To and How Not To Diet He is now working on his next book: How Not To Age Dr. Danitza Dash (from the [facility]), has articles on the following website: [place] Also, you could find additional information on practical to follow recipes by reading or watching online and YouTube such as: Box Blank Machine Operator Helper AJ, Cooking With Plants, The Vegan Corner (recipes from an Ghanaian Box Blank Machine Operator Helper), The Whole Foods Plant Based Cooking Show and visiting the provided websites for additional information on the whole plant based benefit and cooking recipes. You can also consider watching the vlogs of some of the plant based Athletes such as Fausto Ewing Derek on [place]. Dr. Maryan Holguin (a psychiatrist who suffered [...] - Gentle Yoga Anyone Can Do Anywhere www.StorSimple/yoga Also on youtube: yoga with Karlie 3- [...] or a higher dose. Raw: Garlic, Cilantro, [place] nuts, Pumpkin seeds, [place] seeds and Flax seed powder have been reported to help with certain metal detoxification such as mercury. [place]-3 plant based rich foods are good anti-inflammatory [...] the Whole Plant Based Diet, by watching Slade over Knives movie and then review website. There are many other resources and educational information on the Whole plant based diet on the Internet and documentaries. There are other resources for wellness that you can also benefit from, such as the [facility] Wellness website, [facility] and includes Plant based and Mediterranean diet, yoga and meditation. Please avoid all dairy products. You could use non-dairy milk such as Flax milk, Cashew milk, Anderson milk, Rice milk, Oat milk or Hemp [...] Osteoporosis Foundation) http://www.osteo.org/osteolinks.asp National Institutes of Health: 3-206-763-BONE The Calcium Information [place]: -Non-Dairy, Plant based Milk, can contain in1 glass up to 450 mg of calcium (300 to 450 mg) Exampled include Oat Milk, Flax Milk, Anderson Milk, Cashew Milk, Soy Milk, Peas Milk general health and well being Examples of Food Sources of Calcium from [facility] Food Milligrams (mg) per serving Percent DV* Soymilk, calcium-fortified, 8 ounces 299 30 Morrow juice, calcium-fortified, 6 ounces 261 26 Tofu, firm, made with calcium sulfate, cup* 253 25 Tofu, soft, made with calcium sulfate, cup* 138 14 Rezwq-td-qqw cereal, calcium-fortified, 1 cup 100-1,000 10-100 Turnip greens, fresh, boiled, cup 99 10 Kale, raw, chopped, 1 cup 100 10 Kale, fresh, cooked, 1 cup 94 9 Cymro cabbage, bok marin, raw, shredded, 1 cup 74 7 Bread, white, 1 slice 73 7 Tortilla, corn, gsstd-cp-cjda/marshall, one 6 diameter 46 5 Tortilla, flour, zkoyt-lb-wxud/marshall, one 6 diameter 32 3 Bread, whole-wheat, [...] daily with a meal; Certain patients require 8085-1837 iu daily and in patients deficient in [...] bones. Studies show approximately 50% of [place] men and women are vitamin D deficient [...] is/osteo/info.htm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 intake on www.The .tv Corporation.RCD Technology This provides macro and micronutrient intake and [...] that features the Whole Plant Based diet, Slade over knives (see video online and visit website). Another movie that was recently released is: Eating You Alive (you can find it at ibeatyou) and The Game Changers movie Dr. Fauzia Ansari is a [facility] physician who is an expert in Whole Plant based diet. His website is MolecularMD. His research highlights the benefits of the Whole food plant based diet in reversing and preventing heart disease. Mrs. Ansari (his ) has a cookbook with many recipes on whole plant based food: The Prevent and Reverse Heart Disease cookbook. You can also consider reading his son, Eze Ansari's book: The Engine 2 cookbook Eze is a retired clay hoister who has helped many people get healthier by following the whole food plant based diet. Dr. Rock Velazco, has a website and free angélica to help get started on a whole plant based diet, at www.pcrClickable.org and you can log on for free for his 21-Day Kickstart with meals and recipes to follow for 21 days. There is also a free angélica for that. He has multiple free videos and YouTube, for example: https://youBOLT Solutionsu.be/jxvZfrwL0a6 , https://youtu.be/JwXYYzjar7j He has written multiple books, including Visualead for the Brain, The Cheese Trap, Dr. Rock Velazco's Program for Reversing Diabetes, Your Body in Balance Dr. Anthony Carlson has shown the benefit of a starch based whole food plant based diet to his Rheumatoid Arthritis patients, as well as patient with diabetes II, hypertension, obesity, multiple sclerosis, heart disease, acne, and other, his website: www.Nexopia.RCD Technology Dr. Yayo Allred is a renowned lead scientist, who has studied and researched the benefits of the Whole plant based diet. He has also researched the adverse effects of animal proteins on health. He presents many of his research findings in his book The [place] study. Dr. Gerber Becker has completed many research trials proving the reversal of diseases, such as heart disease and early prostate cancer, with healthy lifestyle and the Whole Plant based diet. Dr. Gerber Becker website is: www.carmenSpinX Technologies.RCD Technology His new book: Undo It, has evidence [...] To Age Dr. Danitza Dash (from the [facility]), has articles on the following website: Sleep.FM.RCD Technology Also, you could find additional information on practical to follow recipes by reading or watching online and YouTube such as: Chef BELLE, Cooking With Plants, The Vegan Corner (recipes from an Ghanaian Box Blank Machine Operator Helper), The Whole Foods Plant Based Cooking Show and visiting the provided websites for additional information on the whole plant based benefit and cooking recipes. You can also consider watching the vlogs of some of the plant based Athletes such as Graeme Kamara, Agustin Lundy on Scholar [place]. Dr. Maryan Holguin (a psychiatrist who suffered [...] - Gentle Yoga Anyone Can Do Anywhere www.[employer] Life Sciences.RCD Technology/yoga Also on youtube: yoga with Karlie 3- [...] or a higher dose. Raw: Garlic, Cilantro, [place] nuts, Pumpkin seeds, [place] seeds and Flax seed powder have been reported to help with certain metal detoxification such as mercury. [place]-3 plant based rich foods are good anti-inflammatory [...] the Whole Plant Based Diet, by watching Slade over [employer] movie and then review website. There are many other resources and educational information on the Whole plant based diet on the Internet and documentaries. There are other resources for wellness that you can also benefit from, such as the [facility] Wellness website, [facility] and includes Plant based and Mediterranean diet, yoga and meditation. Please avoid all dairy products. You could use non-dairy milk such as Flax milk, Cashew milk, Anderson milk, Rice milk, Oat milk or Hemp [...] following resources: www.nof.org (National Osteoporosis Foundation) http://www.osteo.org/osteolinks.asp [facility]: 1-888-161-BONE [facility] Calcium Information [place]: -Non-Dairy, Plant based Milk, can contain in1 glass up to 450 mg of calcium (300 to 450 mg) Exampled include Oat Milk, Flax Milk, Anderson Milk, Cashew Milk, Soy Milk, Peas Milk general health and well being Examples of Food Sources of Calcium from [facility] Food Milligrams (mg) per serving Percent DV* Soymilk, calcium-fortified, 8 ounces 299 30 [place]row juice, calcium-fortified, 6 ounces 261 26 Tofu, firm, made with calcium sulfate, cup* 253 25 Tofu, soft, made with calcium sulfate, cup* 138 14 Clzcn-nq-dtk cereal, calcium-fortified, 1 cup 100-1,000 10-100 Turnip greens, fresh, boiled, cup 99 10 Kale, raw, chopped, 1 cup 100 10 Kale, fresh, cooked, 1 cup 94 9 Cymro cabbage, bok marin, raw, shredded, 1 cup 74 7 Bread, white, 1 slice 73 7 Tortilla, corn, mdnis-re-qvoe/marshall, one 6 diameter 46 5 Tortilla, flour, jgxmp-tp-nbkd/marshall, one 6 diameter 32 3 Bread, whole-wheat, [...] could acces this information online at: http://ods.od.nih.gov/factsheets/Calci -[facility]/ Vitamin D: Vitamin D3= cholecalciferol, available over the counter. Dose recommended 800 to 1000 iu daily with a meal; Certain patients require 3819-7181 iu daily and in patients deficient in [...] bones. Studies show approximately 50% of [place] men and women are vitamin D deficient [...] national osteoporosis foundation) http://www.[facility].org/arthgabriella is/osteo/info.htm http://ods.od.nih.gov/factsheets/vitam ind.asp [facility]: 9-822-375-BONE [facility] Calcium Information [place]: At the [facility], we work as a team for your care, along with Nurse Practitioners, Physician Assistants, Nurses and Medical Assistants. It is a privilege and honor to serve you. Thank you for choosing The [facility] for your healthcare. Sincerely, Nidia Weston APRN.SHEETER HELPER documented in this encounter [facility] 05-04-2023 History of Present illness Narrative Follow [...] was there Goes back fitting denture 09/09 [facility] [phone] GI - colitis 03/23 Had colonoscopy - [...] in patient's severe chronic Rheumatoid Arthritis. His embroidery finisher has switched him to Humira as he [...] IBD and intermittent steroid therapy from his embroidery finisher. Pharmacologic therapy is still indicated and recommended, [...] if necessary, CC, NOF and ISCD and [facility]. PLAN: [facility] on 05/04/23 VITAMIN D 25 HYDROXY RENAL FUNCTION PANEL MONOCLONAL PROT UR W/INTERP Labs prior to next visit Reclast - You are on entyvio and sulfasalazine for your Ulcerative Colitis. These are also treating your Rheumatoid Arthritis. During infections you will need to hold the entyvio and sulfasalazine, but discuss first with your embroidery finisher. Supplements recommended Vitamin B12: 500 to 1000 [...] in the office. This medication is given superintendent container terminal, indefinitely. Prolia should not be discontinued without [...] looked into transition therapy. Recent study from [facility] Slim et al, 04/11/2020, reported one [...] initiated in patients who have had an [place] or stroke in the preceding year. This [...] atypical and subtroch. fracture of femur with longterm use of bisphosphonates/alendronate and anti-resorptive agents, there [...] the care of your patient. Nidia Weston APRN.[facility] cc Jose L Lackey MD, MD Patient Instructions -PLEASE NOTE THAT WE REVIEW ALL YOUR TEST RESULTS AT YOUR NEXT FOLLOW UP VISIT WITH YOU. IF ANY ABNORMAL LAB REQUIRES SOONER ATTENTION, WE WILL CONTACT YOU. -If you have signed up on Combined Effort, we will release your test results through Combined Effort. I wish you the best of health [...] and sulfasalazine, but discuss first with your embroidery finisher. Supplements recommended Vitamin B12: 500 to 1000 [...] track your nutrition and calcium intake on www.8aweek This provides macro and micronutrient intake and requirements. - You can track your calcium intake on 8aweek or any other calcium tracker of your [...] now for a cost, such as at www.jobandtalent. -When eating a whole food plant based [...] track your nutrition and calcium intake on www.The .tv Corporation.RCD Technology This provides macro and micronutrient intake and [...] that features the Whole Plant Based diet, Slade over knives (see video online and visit website). Another movie that was recently released is: Eating You Alive (you can find it at ibeatyou) and The Backspaces ChangeGOGETMi / ?.?? movie Dr. Fauzia Ansari is a [facility] physician who is an expert in Whole Plant based diet. His website is MolecularMD. His research highlights the benefits of the Whole food plant based diet in reversing and preventing heart disease. Mrs. Ansari (his ) has a cookbook with many recipes on whole plant based food: The Prevent and Reverse Heart Disease cookbook. You can also consider reading his son, Eze Ansari's book: The Engine 2 cookbook Eze is a retired clay hoister who has helped many people get healthier [...] multiple free videos and YouTube, for example: https://youtu.MyWealth/vwaIyybY3j4 , https://Flagshship Fitness.be/GlCYRygjh0z He has written multiple books, including Power [...] heart disease, acne, and other, his website: www.debra.RCD Technology Dr. Yayo Allred is a renowned lead scientist, who has studied and researched the benefits of the Whole plant based diet. He has also researched the adverse effects of animal proteins on health. He presents many of his research findings in his book The [place] study. Dr. Gerber Becker has completed many research trials proving the reversal of diseases, such as heart disease and early prostate cancer, with healthy lifestyle and the Whole Plant based diet. Dr. Gerber Becker website is: www.carmenSpinX Technologies.RCD Technology His new book: Undo It, has evidence based information and guide to following this healthy lifestyle. Dr. Cody Dillon has dedicated a website and additional time to reviewing all food related articles and research and presents them in his power point presentation and on his website at: nutritionfacts.org which is all free. Dr. Dillon has multiple free videos and YouTube, for example https://Flagshship Fitness.MyWealth/aSgNkhgVtks and https://Flagshship Fitness.MyWealth/lXXXygDRyBU. He has written multiple books including: How Not To and How Not To Diet He is now working on his next book: How Not To Age Dr. Danitza Dash (from the [facility]), has articles on the following website: Sleep.FM.RCD Technology Also, you could find additional information on practical to follow recipes by reading or watching online and YouTube such as: Box Blank Machine Operator Helper AJ, Cooking With Plants, The Vegan Corner (recipes from an Ghanaian Box Blank Machine Operator Helper), The Whole Foods Plant Based Cooking Show and visiting the provided websites for additional information on the whole plant based benefit and cooking recipes. You can also consider watching the vlogs of some of the plant based Athletes such as Graeme Kamara, Agustin Lundy on HAM-IT Nutrition. Dr. Maryan Holguin (a psychiatrist who [...] - Gentle Yoga Anyone Can Do Anywhere www.StorSimple/yoga Also on youtube: yoga with Karlie 3- [...] or a higher dose. Raw: Garlic, Cilantro, [place] nuts, Pumpkin seeds, [place] seeds and Flax seed powder have been reported to help with certain metal detoxification such as mercury. [place]-3 plant based rich foods are good anti-inflammatory [...] the Whole Plant Based Diet, by watching Slade over [employer] movie and then review website. There are many other resources and educational information on the Whole plant based diet on the Internet and documentaries. There are other resources for wellness that you can also benefit from, such as the [facility] Wellness website, [facility] and includes Plant based and Mediterranean diet, yoga and meditation. Please avoid all dairy products. You could use non-dairy milk such as Flax milk, Cashew milk, Anderson milk, Rice milk, Oat milk or Hemp [...] Osteoporosis Foundation) http://www.osteo.org/osteolinks.asp National Institutes of Health: 3-693-375-BONE The Calcium Information [place]: -Non-Dairy, Plant based Milk, can contain in1 glass up to 450 mg of calcium (300 to 450 mg) Exampled include Oat Milk, Flax Milk, Anderson Milk, Cashew Milk, Soy Milk, Peas Milk general health and well being Examples of Food Sources of Calcium from [facility] Food Milligrams (mg) per serving Percent DV* Soymilk, calcium-fortified, 8 ounces 299 30 Morrow juice, calcium-fortified, 6 ounces 261 26 Tofu, firm, made with calcium sulfate, cup* 253 25 Tofu, soft, made with calcium sulfate, cup* 138 14 Saoth-ch-afh cereal, calcium-fortified, 1 cup 100-1,000 10-100 Turnip greens, fresh, boiled, cup 99 10 Kale, raw, chopped, 1 cup 100 10 Kale, fresh, cooked, 1 cup 94 9 Cymro cabbage, bok marin, raw, shredded, 1 cup 74 7 Bread, white, 1 slice 73 7 Tortilla, corn, hbjwk-ed-foxp/marshall, one 6 diameter 46 5 Tortilla, flour, albpe-kf-nnob/marshall, one 6 diameter 32 3 Bread, whole-wheat, [...] daily with a meal; Certain patients require 8128-7118 iu daily and in patients deficient in [...] bones. Studies show approximately 50% of [place] men and women are vitamin D deficient [...] is/osteo/info.htm http://ods.od.nih.gov/factsheets/vitam ind.asp National Institutes of Health: 8-665-250-BONE The Calcium Information [place]: At the [facility], we work as a team for your care, along with Nurse Practitioners, Physician Assistants, Nurses and Medical Assistants. It is a privilege and honor to serve you. Thank you for choosing The [facility] for your healthcare. Sincerely, Nidia Weston APRN.SHEETER HELPER PAST MEDICAL HISTORY Diagnosis Date Monoclonal gammopathy [...] in am, 3 noon, 2 pm), per embroidery finisher No current facility-administered medications for this visit. [...] developed and its performance characteristics determined by [facility] ([facility]). It has not been cleared or approved by the FDA. -[facility] is regulated under CLIA as qualified [...] 147 53 - 334 mg/dL Final MPA De Motte, Serum Date Value Ref Range Status 08/19/2018 1,020 534 - 1,267 mg/dL Final MPA Lambda, Serum Date Value Ref Range Status 08/19/2018 551 253 - 653 mg/dL Final MPA De Motte/Lambda Ratio Date Value Ref Range Status 08/19/2018 [...] , Gender: Male SCANNER INFORMATION: DXA Model: [employer] W [id number] SITE SCANNED: Lumbar spine and left hip [...] www.nof.org International Society of Clinical Densitometry www.iscd.org Supervisor Matrix: [id number] Transcribe Date/Time: Sep 23 2022 10:28A Dictated by : DARRIAN DUBON MD This examination was interpreted and the report reviewed and electronically signed by: DARRIAN DUBON MD on Sep 28 2022 6:46PM EST documented in this encounter [facility] 03-02-2023 Instructions Nidia Weston APRN.JOSE - 03/02/2023 11:10 AM EDT -PLEASE NOTE THAT WE REVIEW ALL YOUR TEST RESULTS AT YOUR NEXT FOLLOW UP VISIT WITH YOU. IF ANY ABNORMAL LAB REQUIRES SOONER ATTENTION, WE WILL CONTACT YOU. -If you have signed up on BubbleLife Mediahart, we will release your test results through Combined Effort. I wish you the best of health [...] and sulfasalazine, but discuss first with your embroidery finisher. Supplements recommended Vitamin B12: 500 to 1000 [...] track your nutrition and calcium intake on www.The .tv Corporation.RCD Technology This provides macro and micronutrient intake and requirements. - You can track your calcium intake on bizHiveometerRock My World or any other calcium tracker of your [...] now for a cost, such as at www.jobandtalent. -When eating a whole food plant based [...] that features the Whole Plant Based diet, Slade over knives (see video online and visit website). Another movie that was recently released is: Eating You Alive (you can find it at Ixtens.RCD Technology) and The Game Changers movie Dr. Fauzia Ansari is a [facility] physician who is an expert in Whole Plant based diet. His website is MolecularMD. His research highlights the benefits of the Whole food plant based diet in reversing and preventing heart disease. Mrs. Ansari (his ) has a cookbook with many recipes on whole plant based food: The Prevent and Reverse Heart Disease cookbook. You can also consider reading his son, Eze Ansari's book: The Engine 2 cookbook Eze is a retired clay hoister who has helped many people get healthier by following the whole food plant based diet. Dr. Rock Velazco, has a website and free angélica to help get started on a whole plant based diet, at www.Usbek & Rica.[employer] and you can log on for free for his 21-Day Kickstart with meals and recipes to follow for 21 days. There is also a free angélica for that. He has multiple free videos and YouTube, for example: https://youBOLT Solutionsu.be/blhRhyyZ5v9 , https://youBOLT Solutionsu.[email or web address] He has written multiple books, including Power [...] heart disease, acne, and other, his website: www.debra.RCD Technology Dr. Yayo Allred is a renowned lead scientist, who has studied and researched the benefits of the Whole plant based diet. He has also researched the adverse effects of animal proteins on health. He presents many of his research findings in his book The [place] study. Dr. Gerber Becker has completed many research trials proving the reversal of diseases, such as heart disease and early prostate cancer, with healthy lifestyle and the Whole Plant based diet. Dr. Gerber Becker website is: www.carmenSpinX Technologies.RCD Technology His new book: Undo It, has evidence based information and guide to following this healthy lifestyle. Dr. Cody Dillon has dedicated a website and additional time to reviewing all food related articles and research and presents them in his power point presentation and on his website at: nutritionfacts.org which is all free. Dr. Dillon has multiple free videos and YouTube, for example https://youBOLT Solutionsu.be/aSgNkhgVtks and https://youBOLT Solutionsu.be/lXXXygDRyBU. He has written multiple books including: How Not To and How Not To Diet He is now working on his next book: How Not To Age Dr. Danitza Dash (from the [facility]), has articles on the following website: [place] Also, you could find additional information on practical to follow recipes by reading or watching online and YouTube such as: Box Blank Machine Operator Helper AJ, Cooking With Plants, The Vegan Corner (recipes from an Ghanaian Box Blank Machine Operator Helper), The Whole Foods Plant Based Cooking Show and visiting the provided websites for additional information on the whole plant based benefit and cooking recipes. You can also consider watching the vlogs of some of the plant based Athletes such as Fausto Ewing Derek on Scholar Rock. Dr. Maryan Holguin (a psychiatrist who suffered [...] - Gentle Yoga Anyone Can Do Anywhere www.[employer].RCD Technology/yoga Also on youtube: yoga with Karlie 3- [...] or a higher dose. Raw: Garlic, Cilantro, [place] nuts, Pumpkin seeds, [place] seeds and Flax seed powder have been reported to help with certain metal detoxification such as mercury. [place]-3 plant based rich foods are good anti-inflammatory [...] the Whole Plant Based Diet, by watching Slade over Knives movie and then review website. There are many other resources and educational information on the Whole plant based diet on the Internet and documentaries. There are other resources for wellness that you can also benefit from, such as the [facility] Wellness website, [facility] and includes Plant based and Mediterranean diet, yoga and meditation. Please avoid all dairy products. You could use non-dairy milk such as Flax milk, Cashew milk, Anderson milk, Rice milk, Oat milk or Hemp [...] following resources: www.nof.org (National Osteoporosis Foundation) http://www.osteo.org/osteolinks.asp [facility]: 2-586-793-BONE The Calcium Information [place]: -Non-Dairy, Plant based Milk, can contain in1 glass up to 450 mg of calcium (300 to 450 mg) Exampled include Oat Milk, Flax Milk, Anderson Milk, Cashew Milk, Soy Milk, Peas Milk general health and well being Examples of Food Sources of Calcium from [facility] Food Milligrams (mg) per serving Percent DV* Soymilk, calcium-fortified, 8 ounces 299 30 Morrow juice, calcium-fortified, 6 ounces 261 26 Tofu, firm, made with calcium sulfate, cup* 253 25 Tofu, soft, made with calcium sulfate, cup* 138 14 Ezaus-af-tpm cereal, calcium-fortified, 1 cup 100-1,000 10-100 Turnip greens, fresh, boiled, cup 99 10 Kale, raw, chopped, 1 cup 100 10 Kale, fresh, cooked, 1 cup 94 9 Cymro cabbage, bok marin, raw, shredded, 1 cup 74 7 Bread, white, 1 slice 73 7 Tortilla, corn, npdbk-xp-vcit/marshall, one 6 diameter 46 5 Tortilla, flour, uwryp-zc-fqty/marshall, one 6 diameter 32 3 Bread, whole-wheat, [...] daily with a meal; Certain patients require 9319-2334 iu daily and in patients deficient in [...] bones. Studies show approximately 50% of [place] men and women are vitamin D deficient [...] national osteoporosis foundation) http://www.[facility].org/arthrit is/osteo/info.htm http://ods.od.nih.gov/factsheets/vitam ind.asp [facility]: 1-978-726-BONE The Calcium Information [place]: At the [facility], we work as a team for your care, along with Nurse Practitioners, Physician Assistants, Nurses and Medical Assistants. It is a privilege and honor to serve you. Thank you for choosing The [facility] for your healthcare. Sincerely, Nidia Weston APRN.JOSE documented in this encounter [facility] 03-02-2023 History of Present illness Narrative Follow [...] in patient's severe chronic Rheumatoid Arthritis. His embroidery finisher has switched him to Humira as he [...] IBD and intermittent steroid therapy from his embroidery finisher. Pharmacologic therapy is still indicated and recommended, [...] if necessary, CC, NOF and ISCD and [facility]. PLAN: No orders found for this visit on 03/02/23. Please continue on yout Vitamin D 5000 international units once daily with meals and your multivitamin - You are on Humira and sulfasalazine for your Ulcerative Colitis. These are also treating your Rheumatoid Arthritis. During infections you will need to hold the Humira and sulfasalazine, but discuss first with your embroidery finisher. Supplements recommended Vitamin B12: 500 to 1000 [...] in the office. This medication is given superintendent container terminal, indefinitely. Prolia should not be discontinued without [...] looked into transition therapy. Recent study from [facility] Slim et al, 04/11/2020, reported one [...] initiated in patients who have had an [place] or stroke in the preceding year. This [...] atypical and subtroch. fracture of femur with superintendent container terminal use of bisphosphonates/alendronate and anti-resorptive agents, there [...] the care of your patient. Nidia Weston APRN.SHEETER HELPER cc Jose L Lackey MD, MD Patient Instructions -PLEASE NOTE THAT WE REVIEW ALL YOUR TEST RESULTS AT YOUR NEXT FOLLOW UP VISIT WITH YOU. IF ANY ABNORMAL LAB REQUIRES SOONER ATTENTION, WE WILL CONTACT YOU. -If you have signed up on Combined Effort, we will release your test results through Combined Effort. I wish you the best of health [...] and sulfasalazine, but discuss first with your embroidery finisher. Supplements recommended Vitamin B12: 500 to 1000 [...] track your nutrition and calcium intake on www.8aweek This provides macro and micronutrient intake and requirements. - You can track your calcium intake on 8aweek or any other calcium tracker of your [...] now for a cost, such as at www.jobandtalent. -When eating a whole food plant based [...] track your nutrition and calcium intake on www.bizHiveometer.RCD Technology This provides macro and micronutrient intake and [...] that features the Whole Plant Based diet, Slade over knives (see video online and visit website). Another movie that was recently released is: Eating You Alive (you can find it at ibeatyou) and The Game Changers movie Dr. Fauzia Ansari is a [facility] physician who is an expert in Whole Plant based diet. His website is MolecularMD. His research highlights the benefits of the Whole food plant based diet in reversing and preventing heart disease. Mrs. Ansari (his ) has a cookbook with many recipes on whole plant based food: The Prevent and Reverse Heart Disease cookbook. You can also consider reading his son, Eze Ansari's book: The Engine 2 cookbook Eze is a retired clay hoister who has helped many people get healthier by following the whole food plant based diet. Dr. Rock Velazco, has a website and free angélica to help get started on a whole plant based diet, at www.pcrClickable.org and you can log on for free for his 21-Day Kickstart with meals and recipes to follow for 21 days. There is also a free angélica for that. He has multiple free videos and YouTube, for example: https://youtu.be/gaxAjrkI2e9 , https://youtu.be/AfVLVxzwn8a He has written multiple books, including Visualead for the Brain, The Cheese Trap, Dr. Rock Velazco's Program for Reversing Diabetes, Your Body in Balance Dr. Anthony Carlson has shown the benefit of a starch based whole food plant based diet to his Rheumatoid Arthritis patients, as well as patient with diabetes II, hypertension, obesity, multiple sclerosis, heart disease, acne, and other, his website: www.Nexopia.RCD Technology Dr. Yayo Allred is a renowned lead scientist, who has studied and researched the benefits of the Whole plant based diet. He has also researched the adverse effects of animal proteins on health. He presents many of his research findings in his book The [place] study. Dr. Gerber Becker has completed many research trials proving the reversal of diseases, such as heart disease and early prostate cancer, with healthy lifestyle and the Whole Plant based diet. Dr. Gerber Becker website is: www.carmenSpinX Technologies.RCD Technology His new book: Undo It, has evidence [...] To Age Dr. Danitza Dash (from the [facility]), has articles on the following website: Sleep.FM.RCD Technology Also, you could find additional information on practical to follow recipes by reading or watching online and YouTube such as: Chef BELLE, Cooking With Plants, The Vegan Corner (recipes from an Ghanaian Box Blank Machine Operator Helper), The Whole Foods Plant Based Cooking Show and visiting the provided websites for additional information on the whole plant based benefit and cooking recipes. You can also consider watching the vlogs of some of the plant based Athletes such as Fausto Ewing Derek on Scholar Rock. Dr. Maryan Holguin (a psychiatrist who suffered [...] - Gentle Yoga Anyone Can Do Anywhere www.[employer].RCD Technology/yoga Also on youtube: yoga with Karlie 3- [...] or a higher dose. Raw: Garlic, Cilantro, [place] nuts, Pumpkin seeds, [place] seeds and Flax seed powder have been reported to help with certain metal detoxification such as mercury. [place]-3 plant based rich foods are good anti-inflammatory [...] the Whole Plant Based Diet, by watching Slade over [employer] movie and then review website. There are many other resources and educational information on the Whole plant based diet on the Internet and documentaries. There are other resources for wellness that you can also benefit from, such as the [facility] Wellness website, [facility] and includes Plant based and Mediterranean diet, yoga and meditation. Please avoid all dairy products. You could use non-dairy milk such as Flax milk, Cashew milk, Anderson milk, Rice milk, Oat milk or Hemp [...] following resources: www.nof.org (National Osteoporosis Foundation) http://www.osteo.org/osteolinks.asp [facility]: 4-500-914-BONE [facility] Calcium Information [place]: -Non-Dairy, Plant based Milk, can contain in1 glass up to 450 mg of calcium (300 to 450 mg) Exampled include Oat Milk, Flax Milk, Anderson Milk, Cashew Milk, Soy Milk, Peas Milk general health and well being Examples of Food Sources of Calcium from [facility] Food Milligrams (mg) per serving Percent DV* Soymilk, calcium-fortified, 8 ounces 299 30 [place]row juice, calcium-fortified, 6 ounces 261 26 Tofu, firm, made with calcium sulfate, cup* 253 25 Tofu, soft, made with calcium sulfate, cup* 138 14 Fsozg-rz-hve cereal, calcium-fortified, 1 cup 100-1,000 10-100 Turnip greens, fresh, boiled, cup 99 10 Kale, raw, chopped, 1 cup 100 10 Kale, fresh, cooked, 1 cup 94 9 Cymro cabbage, bok marin, raw, shredded, 1 cup 74 7 Bread, white, 1 slice 73 7 Tortilla, corn, zrnlr-ma-mpol/marshall, one 6 diameter 46 5 Tortilla, flour, kveai-eb-gwir/marshall, one 6 diameter 32 3 Bread, whole-wheat, [...] could acces this information online at: http://ods.od.nih.gov/factsheets/Calci -[facility], [facility]/ Vitamin D: Vitamin D3= cholecalciferol, available over the counter. Dose recommended 800 to 1000 iu daily with a meal; Certain patients require 0251-4947 iu daily and in patients deficient in [...] bones. Studies show approximately 50% of [place] men and women are vitamin D deficient [...] national osteoporosis foundation) http://www.[facility].org/arthgabriella is/osteo/info.htm http://ods.od.nih.gov/factsheets/vitam ind.asp [facility]: 3-303-974-BONE [facility] Calcium Information Center: At the [facility], we work as a team for your care, along with Nurse Practitioners, Physician Assistants, Nurses and Medical Assistants. It is a privilege and honor to serve you. Thank you for choosing The [facility] for your healthcare. Sincerely, Nidia Weston APRN.SHEETER HELPER PAST MEDICAL HISTORY Diagnosis Date Monoclonal gammopathy [...] mg subcutaneously every 2 weeks. Prescribed by Dairy Science Teacher : Nel Lebron MD Previously prescr. by [...] in am, 3 noon, 2 pm), per embroidery finisher No current facility-administered medications for this visit. [...] developed and its performance characteristics determined by [facility] Laboratory Medicine Ward ([facility]). It has not been cleared or approved by the FDA. -[facility] is regulated under CLIA as qualified [...] 147 53 - 334 mg/dL Final MPA De Motte, Serum Date Value Ref Range Status 08/19/2018 1,020 534 - 1,267 mg/dL Final MPA Lambda, Serum Date Value Ref Range Status 08/19/2018 551 253 - 653 mg/dL Final MPA De Motte/Lambda Ratio Date Value Ref Range Status 08/19/2018 [...] , Gender: Male SCANNER INFORMATION: DXA Model: [employer] W [id number] SITE SCANNED: Lumbar spine and left hip [...] machine for accurate comparison. FOR MORE INFORMATION: [facility] for Osteoporosis and Metabolic Bone Disease: www.ccf.org/arthritis/osteo National Osteoporosis Foundation: www.nof.org International Society of Clinical Densitometry www.iscd.org Supervisor Matrix: [id number] Transcribe Date/Time: Sep 23 2022 10:28A Dictated by : DARRIAN DUBON MD This examination was interpreted and the report reviewed and electronically signed by: DARRIAN DUBON MD on Sep 28 2022 6:46PM EST documented in this encounter [facility] 01-15-2023 Miscellaneous Notes Lm regarding results and recommendations. Please call patient Normal vit d Please continue current dose Received outside lab results from Zbigniew Huertaus ordered by Nidia Weston CNP -- 01/12/23 Vit D 40.2 documented in this encounter [facility] 01-11-2023 Instructions Nidia Weston APRN.CNP - 01/11/2023 7:57 PM EST -PLEASE NOTE THAT WE REVIEW ALL YOUR TEST RESULTS AT YOUR NEXT FOLLOW UP VISIT WITH YOU. IF ANY ABNORMAL LAB REQUIRES SOONER ATTENTION, WE WILL CONTACT YOU. -If you have signed up on Combined Effort, we will release your test results through Combined Effort. I wish you the best of health [...] and sulfasalazine, but discuss first with your embroidery finisher. Supplements recommended Vitamin B12: 500 to 1000 [...] track your nutrition and calcium intake on www.8aweek This provides macro and micronutrient intake and requirements. - You can track your calcium intake on 8aweek or any other calcium tracker of your [...] now for a cost, such as at www.jobandtalent. -When eating a whole food plant based [...] track your nutrition and calcium intake on www.The .tv Corporation.RCD Technology This provides macro and micronutrient intake and [...] that features the Whole Plant Based diet, Slade over knives (see video online and visit website). Another movie that was recently released is: Eating You Alive (you can find it at ibeatyou) and The Backspaces ChangeGOGETMi / ?.?? movie Dr. Fauzia Ansari is a [facility] physician who is an expert in Whole Plant based diet. His website is MolecularMD. His research highlights the benefits of the Whole food plant based diet in reversing and preventing heart disease. Mrs. Ansari (his ) has a cookbook with many recipes on whole plant based food: The Prevent and Reverse Heart Disease cookbook. You can also consider reading his son, Eze Ansari's book: The Engine 2 cookbook Eze is a retired clay hoister who has helped many people get healthier [...] multiple free videos and YouTube, for example: https://youtu.be/hkkRinkN6o8 , https://youtu.be/YzRJCurjk7u He has written multiple books, including Power FilaExpress for the Brain, The Cheese Trap, Dr. Rock Velazco's Program for Reversing Diabetes, Your Body in Balance Dr. Anthony Carlson has shown the benefit of a starch based whole food plant based diet to his Rheumatoid Arthritis patients, as well as patient with diabetes II, hypertension, obesity, multiple sclerosis, heart disease, acne, and other, his website: www.Nexopia.RCD Technology Dr. Yayo Allred is a renowned lead scientist, who has studied and researched the benefits of the Whole plant based diet. He has also researched the adverse effects of animal proteins on health. He presents many of his research findings in his book The [place] study. Dr. Gerber Becker has completed many research trials proving the reversal of diseases, such as heart disease and early prostate cancer, with healthy lifestyle and the Whole Plant based diet. Dr. Gerber Becker website is: www.carmenSpinX Technologies.RCD Technology His new book: Undo It, has evidence [...] To Age Dr. Danitza Dash (from the [facility]), has articles on the following website: Sleep.FM.RCD Technology Also, you could find additional information on practical to follow recipes by reading or watching online and YouTube such as: Chef BELLE, Cooking With Plants, The Vegan Corner (recipes from an Ghanaian Box Blank Machine Operator Helper), The Whole Foods Plant Based Cooking Show and visiting the provided websites for additional information on the whole plant based benefit and cooking recipes. You can also consider watching the vlogs of some of the plant based Athletes such as Graeme Kamara, Agustin Lundy on Scholar [place]. Dr. Maryan Holguin (a psychiatrist who suffered [...] - Gentle Yoga Anyone Can Do Anywhere www.Biocrates Life Sciences.RCD Technology/yoga Also on youtube: yoga with Karlie 3- [...] or a higher dose. Raw: Garlic, Cilantro, [place] nuts, Pumpkin seeds, [place] seeds and Flax seed powder have been reported to help with certain metal detoxification such as mercury. [place]-3 plant based rich foods are good anti-inflammatory [...] the Whole Plant Based Diet, by watching Slade over [employer] movie and then review website. There are many other resources and educational information on the Whole plant based diet on the Internet and documentaries. There are other resources for wellness that you can also benefit from, such as the [facility] Wellness website, [facility] and includes Plant based and Mediterranean diet, yoga and meditation. Please avoid all dairy products. You could use non-dairy milk such as Flax milk, Cashew milk, Anderson milk, Rice milk, Oat milk or Hemp [...] Osteoporosis Foundation) http://www.osteo.org/osteolinks.asp National Institutes of Health: 8-740-982-BONE The Calcium Information Canyon: -Non-Dairy, Plant based Milk, can contain in1 glass up to 450 mg of calcium (300 to 450 mg) Exampled include Oat Milk, Flax Milk, Anderson Milk, Cashew Milk, Soy Milk, Peas Milk general health and well being Examples of Food Sources of Calcium from [facility] Food Milligrams (mg) per serving Percent DV* Soymilk, calcium-fortified, 8 ounces 299 30 Morrow juice, calcium-fortified, 6 ounces 261 26 Tofu, firm, made with calcium sulfate, cup* 253 25 Tofu, soft, made with calcium sulfate, cup* 138 14 Qswhm-yb-zcl cereal, calcium-fortified, 1 cup 100-1,000 10-100 Turnip greens, fresh, boiled, cup 99 10 Kale, raw, chopped, 1 cup 100 10 Kale, fresh, cooked, 1 cup 94 9 Cymro cabbage, bok marin, raw, shredded, 1 cup 74 7 Bread, white, 1 slice 73 7 Tortilla, corn, xpivf-sf-zvkm/marshall, one 6 diameter 46 5 Tortilla, flour, gxsqv-hy-dbho/marshall, one 6 diameter 32 3 Bread, whole-wheat, [...] daily with a meal; Certain patients require 9110-7371 iu daily and in patients deficient in [...] bones. Studies show approximately 50% of [place] men and women are vitamin D deficient [...] is/osteo/info.htm http://ods.od.nih.gov/factsheets/vitam ind.asp National Institutes of Health: 9-842-566-BONE The Calcium Information Center: At the [facility], we work as a team for your care, along with Nurse Practitioners, Physician Assistants, Nurses and Medical Assistants. It is a privilege and honor to serve you. Thank you for choosing The [facility] for your healthcare. Sincerely, Nidia Weston APRN.JOSE documented in this encounter [facility] 12-29-2022 History of Present illness Narrative Follow [...] in patient's severe chronic Rheumatoid Arthritis. His embroidery finisher has switched him to Humira as he [...] IBD and intermittent steroid therapy from his embroidery finisher. Pharmacologic therapy is still indicated and recommended, [...] if necessary, CC, NOF and ISCD and [facility]. PLAN: [facility] on 12/29/22 VITAMIN D 25 HYDROXY Please continue on yout Vitamin D 5000 international units once daily with meals and your multivitamin - You are on Humira and sulfasalazine for your Ulcerative Colitis. These are also treating your Rheumatoid Arthritis. During infections you will need to hold the Humira and sulfasalazine, but discuss first with your embroidery finisher. Supplements recommended Vitamin B12: 500 to 1000 [...] in the office. This medication is given longterm, indefinitely. Prolia should not be discontinued without [...] looked into transition therapy. Recent study from [facility] Slim et al, 04/11/2020, reported one [...] initiated in patients who have had an FL or stroke in the preceding year. This [...] atypical and subtroch. fracture of femur with superintendent container terminal use of bisphosphonates/alendronate and anti-resorptive agents, there [...] which included preparing to see the patient, xfxf-dv-yyzu patient care, completing clinical documentation, obtaining and/or [...] the care of your patient. Nidia Weston APRN.[facility] cc Jose L Lackey MD, MD Patient Instructions -PLEASE NOTE THAT WE REVIEW ALL YOUR TEST RESULTS AT YOUR NEXT FOLLOW UP VISIT WITH YOU. IF ANY ABNORMAL LAB REQUIRES SOONER ATTENTION, WE WILL CONTACT YOU. -If you have signed up on Combined Effort, we will release your test results through Combined Effort. I wish you the best of health [...] and sulfasalazine, but discuss first with your embroidery finisher. Supplements recommended Vitamin B12: 500 to 1000 [...] track your nutrition and calcium intake on www.The .tv Corporation.RCD Technology This provides macro and micronutrient intake and requirements. - You can track your calcium intake on bizHiveometer.RCD Technology or any other calcium tracker of your [...] now for a cost, such as at www.jobandtalent. -When eating a whole food plant based [...] track your nutrition and calcium intake on www.The .tv Corporation.RCD Technology This provides macro and micronutrient intake and [...] that features the Whole Plant Based diet, Slade over knives (see video online and visit website). Another movie that was recently released is: Eating You Alive (you can find it at ibeatyou) and The Backspaces ChangeGOGETMi / ?.?? movie Dr. Fauzia Ansari is a [facility] physician who is an expert in Whole Plant based diet. His website is MolecularMD. His research highlights the benefits of the Whole food plant based diet in reversing and preventing heart disease. Mrs. Ansari (his ) has a cookbook with many recipes on whole plant based food: The Prevent and Reverse Heart Disease cookbook. You can also consider reading his son, Eze Ansari's book: The Engine 2 cookbook Eze is a retired clay hoister who has helped many people get healthier [...] multiple free videos and YouTube, for example: https://youFIMBex.MyWealth/[email or web address] , https://Flagshship Fitness.[email or web address] He has written multiple books, including Power [...] heart disease, acne, and other, his website: www.debra.RCD Technology Dr. Yayo Allred is a renowned lead scientist, who has studied and researched the benefits of the Whole plant based diet. He has also researched the adverse effects of animal proteins on health. He presents many of his research findings in his book The [place] study. Dr. Gerber Becker has completed many research trials proving the reversal of diseases, such as heart disease and early prostate cancer, with healthy lifestyle and the Whole Plant based diet. Dr. Gerber Becker website is: www.carmenSpinX Technologies.RCD Technology His new book: Undo It, has evidence based information and guide to following this healthy lifestyle. Dr. Cody Dillon has dedicated a website and additional time to reviewing all food related articles and research and presents them in his power point presentation and on his website at: nutritionfacts.org which is all free. Dr. Dillon has multiple free videos and YouTube, for example https://Flagshship Fitness.be/aSgNkhgVtks and [email or web address]://Flagshship Fitness.be/[email or web address]. He has written multiple books including: How Not To and How Not To Diet He is now working on his next book: How Not To Age Dr. Danitza Dash (from the [facility]), has articles on the following website: Sleep.FM.RCD Technology Also, you could find additional information on practical to follow recipes by reading or watching online and YouTube such as: Box Blank Machine Operator Helper AJ, Cooking With Plants, The Vegan Corner (recipes from an Ghanaian Box Blank Machine Operator Helper), The Whole Foods Plant Based Cooking Show and visiting the provided websites for additional information on the whole plant based benefit and cooking recipes. You can also consider watching the vlogs of some of the plant based Athletes such as Graeme Kamara, Fausto Marmolejo, Agustin on Scholar [place]. Dr. Maryan Holguin (a psychiatrist who suffered [...] - Gentle Yoga Anyone Can Do Anywhere www.StorSimple/yoga Also on youtube: yoga with Karlie 3- [...] or a higher dose. Raw: Garlic, Cilantro, [place] nuts, Pumpkin seeds, [place] seeds and Flax seed powder have been reported to help with certain metal detoxification such as mercury. [place]-3 plant based rich foods are good anti-inflammatory [...] the Whole Plant Based Diet, by watching Slade over [employer] movie and then review website. There are many other resources and educational information on the Whole plant based diet on the Internet and documentaries. There are other resources for wellness that you can also benefit from, such as the [facility] Wellness website, [facility] and includes Plant based and Mediterranean diet, yoga and meditation. Please avoid all dairy products. You could use non-dairy milk such as Flax milk, Cashew milk, Anderson milk, Rice milk, Oat milk or Hemp [...] Osteoporosis Foundation) http://www.osteo.org/osteolinks.asp National Institutes of Health: 6-371-846-BONE The Calcium Information Canyon: -Non-Dairy, Plant based Milk, can contain in1 glass up to 450 mg of calcium (300 to 450 mg) Exampled include Oat Milk, Flax Milk, Anderson Milk, Cashew Milk, Soy Milk, Peas Milk general health and well being Examples of Food Sources of Calcium from [facility] Food Milligrams (mg) per serving Percent DV* Soymilk, calcium-fortified, 8 ounces 299 30 [place] juice, calcium-fortified, 6 ounces 261 26 Tofu, firm, made with calcium sulfate, cup* 253 25 Tofu, soft, made with calcium sulfate, cup* 138 14 Clrof-vl-dzr cereal, calcium-fortified, 1 cup 100-1,000 10-100 Turnip greens, fresh, boiled, cup 99 10 Kale, raw, chopped, 1 cup 100 10 Kale, fresh, cooked, 1 cup 94 9 Cymro cabbage, bok marin, raw, shredded, 1 cup 74 7 Bread, white, 1 slice 73 7 Tortilla, corn, irewc-xc-exbv/marshall, one 6 diameter 46 5 Tortilla, flour, meoqx-ii-jtgz/marshall, one 6 diameter 32 3 Bread, whole-wheat, [...] daily with a meal; Certain patients require 2667-4623 iu daily and in patients deficient in [...] bones. Studies show approximately 50% of [place] men and women are vitamin D deficient [...] is/osteo/info.htm http://ods.od.nih.gov/factsheets/vitam ind.asp National Institutes of Health: 9-413-616-BONE The Calcium Information Center: At the [facility], we work as a team for your care, along with Nurse Practitioners, Physician Assistants, Nurses and Medical Assistants. It is a privilege and honor to serve you. Thank you for choosing The [facility] for your healthcare. Sincerely, Nidia Weston APRN.SHEETER HELPER PAST MEDICAL HISTORY Diagnosis Date Monoclonal gammopathy [...] mg subcutaneously every 2 weeks. Prescribed by Dairy Science Teacher : Nel Lebron MD Previously prescr. by [...] in am, 3 noon, 2 pm), per embroidery finisher No current facility-administered medications for this visit. [...] developed and its performance characteristics determined by [facility] Ward ([facility]). It has not been cleared or approved by the FDA. -[facility] is regulated under CLIA as qualified [...] 147 53 - 334 mg/dL Final MPA De Motte, Serum Date Value Ref Range Status 08/19/2018 1,020 534 - 1,267 mg/dL Final MPA Lambda, Serum Date Value Ref Range Status 08/19/2018 551 253 - 653 mg/dL Final MPA De [place]te/Lambda Ratio Date Value Ref Range Status 08/19/2018 [...] , Gender: Male SCANNER INFORMATION: DXA Model: [employer] W [id number] SITE SCANNED: Lumbar spine and left hip [...] machine for accurate comparison. FOR MORE INFORMATION: [facility] for Osteoporosis and Metabolic Bone Disease: www.ccf.org/arthritis/osteo National Osteoporosis Foundation: www.nof.org International Society of Clinical Densitometry www.iscd.org Supervisor Matrix: [id number] Transcribe Date/Time: Sep 23 2022 10:28A Dictated by : DARRIAN DUBON MD This examination was interpreted and the report reviewed and electronically signed by: DARRIAN DUBON MD on Sep 28 2022 6:46PM EST documented in this encounter [facility] 09-23-2022 History of Present illness Narrative Radiology [...] 2022 9:54 AM documented in this encounter [facility] 02-10-2022 Miscellaneous Notes Pt aware. Estefanía Ferraro [...] you kindly, fa documented in this encounter [facility] 08-22-2020 History of Present illness Narrative Radiology [...] 2020 10:20 AM documented in this encounter [facility] Evaluation note Diagnosis Rheumatoid arthritis 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)- Primary Vitamin D deficiency Unspecified vitamin D deficiency Encounter to discuss test results Other specified counseling Encounter for medication review and counseling Other specified counseling Counseling on health promotion and disease prevention Other specified counseling Other osteoporosis without current pathological fracture [facility] Diagnosis Rheumatoid arthritis 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)- Primary Encounter to discuss test results Other specified counseling Counseling on health promotion and disease prevention Other specified counseling Ulcerative pancolitis (HCC) Crowley ulcerative (chronic) colitis Other osteoporosis without current pathological fracture [facility] Diagnosis Rheumatoid arthritis 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)- Primary Encounter to discuss test results Other specified counseling Counseling on health promotion and disease prevention Other specified counseling Ulcerative pancolitis (HCC) Crowley ulcerative (chronic) colitis Vitamin D deficiency Unspecified vitamin D deficiency On sulfasalazine therapy Encounter for medication review and counseling Other specified counseling Other osteoporosis without current pathological fracture Elevated serum immunoglobulin free light chain level Other nonspecific findings on examination of blood [facility] Diagnosis Seropositive rheumatoid arthritis (HCC) Rheumatoid arthritis Other osteoporosis without current pathological fracture Chronic pain of left ankle Ankle deformity, left Pes planus, unspecified laterality Other secondary osteoarthritis of multiple sites [facility] Diagnosis Rheumatoid arthritis 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) Other osteoporosis without current pathological fracture High risk for hip fracture Other specified conditions influencing health status Vitamin D deficiency, hx Unspecified vitamin D deficiency [facility]* Diagnosis Other osteoporosis without current pathological fracture High risk for hip fracture Other specified conditions influencing health status Bone loss Other disorders of bone and cartilage Vitamin D deficiency, hx Unspecified vitamin D deficiency [facility] Diagnosis Elevated alkaline phosphatase level- Primary Other nonspecific abnormal serum enzyme levels documented in this encounter [facility] note* Diagnosis Rheumatoid arthritis 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) [facility] Diagnosis Rheumatoid arthritis 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)- Primary Vitamin D deficiency Unspecified vitamin D deficiency Other osteoporosis without current pathological fracture Encounter for medication review and counseling Other specified counseling Rheumatoid arthritis 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) [facility] Diagnosis Foreign body of left hand, sequela- Primary [facility] Diagnosis Rheumatoid arthritis 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)- Primary Vitamin D deficiency Unspecified vitamin D deficiency Other osteoporosis without current pathological fracture [facility] Diagnosis Seropositive rheumatoid arthritis (HCC)- Primary Rheumatoid arthritis Rheumatoid arthritis 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) On sulfasalazine therapy Ulcerative pancolitis (HCC) Crowley ulcerative (chronic) colitis Other osteoporosis without current pathological fracture History of bisphosphonate therapy Personal history of other drug therapy Counseling on health promotion and disease prevention Other specified counseling [facility] Diagnosis Other osteoporosis without current pathological fracture- Primary documented in this encounter [facility] for referral (narrative)* Diagnostic Procedure Only (Routine) - Closed Specialty Diagnoses / Procedures Referred By Contac t Referred To Contact XR IMAGING Diagnoses Rheumatoid arthritis 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) Procedures XR HAND GENERAL 3V PA/LAT/OBL BILATERAL RADEX HAND MINIMUM 3 VIEWS Nidia Weston, VAMP CREASER.SHEETER HELPER [address] [place] [address] [place] [address] Referral ID Status Reason Start Date Expiration Date V isits Requested Visits Authorized [id number] Closed Auto-Generate d Referral 03/14/2024 11/15/2024 1 1 [facility] for referral (narrative)* Diagnostic Procedure Only (Routine) - Closed Specialty Diagnoses / Procedures Referred By Contac t Referred To Contact XR IMAGING Diagnoses Rheumatoid arthritis 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) Procedures XR HAND GENERAL 3V PA/LAT/OBL BILATERAL RADEX HAND MINIMUM 3 VIEWS Nidia Weston APRN.SHEETER HELPER [address] [place] [address] [place] [address] Referral ID Status Reason Start Date Expiration Date V isits Requested Visits Authorized [id number] Closed Auto-Generate d Referral 03/14/2024 11/15/2024 1 1 * Diagnostic Procedure Only (Routine) - Pending Review Specialty Diagnoses / Procedures Referred By Contac t Referred To Contact XR IMAGING Diagnoses Rheumatoid arthritis 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) Procedures XR HAND GENERAL 3V PA/LAT/OBL BILATERAL RADEX HAND MINIMUM 3 VIEWS Nidia Weston VAMP CREASER.SHEETER HELPER [address] [place] [address] [place] [address] Referral ID Status Reason Start Date Expiration Date Visits Requested Visits Authorized [id number] Pending Review Auto-Generat ed Referral 04/13/2024 04/13/2025 1 1 [facility] for referral (narrative)* Diagnostic Procedure Only (Routine) - Pending Review Specialty Diagnoses / Procedures Referred By Contac t Referred To Contact XR IMAGING Diagnoses Seropositive rheumatoid arthritis (HCC) Ulcerative pancolitis (HCC) Other osteoporosis without current pathological fracture History of bisphosphonate therapy Procedures DXA-AXIAL SKELETON DXA BONE DENSITY STUDY 1/> SITES AXIAL SKEL Al-Ashkar, Feyrouz, MD [address] [place] [address] [place] [address] Referral ID Status Reason Start Date Expiration Date Visits Requested Visits Authorized [id number] Pending Review Auto-Generat ed Referral 11/04/2025 1 1 [facility] for visit Narrative* Diagnostic Procedure Only (Routine) - Closed Specialty Diagnoses / Procedures Referred By Contac t Referred To Contact XR IMAGING Diagnoses Rheumatoid arthritis 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) Procedures XR HAND GENERAL 3V PA/LAT/OBL BILATERAL RADEX HAND MINIMUM 3 VIEWS Nidia Weston, VAMP CREASER.SHEETER HELPER [address] [place] [address] [place] [address] Referral ID Status Reason Start Date Expiration Date V isits Requested Visits Authorized [id number] Closed Auto-Generate d Referral 03/14/2024 11/15/2024 1 1 [facility] Advance Directives No Advanced Directives Records Found [...] NEW HIGH MDM 60 MINUTES Nidia Weston, VAMP CREASER.SHEETER HELPER [address] [place] [address] Referral ID Status Reason Start Date Expiration Date Visits Requested Visits Authorized [id number] Authorized PCP Requested Referral 02/11/2024 02/10/2025 1 1 Specialty Diagnoses / Procedures Referred By Hanna aponte Referred To Contact Orthopedics Diagnoses Foreign body of left hand, sequela Procedures CONSULT TO ORTHOPAEDICS OFFICE/OUTPATIENT [facility] 60 MINUTES Nidia Weston, VAMP CREASER.SHEETER HELPER [address] [place] [address] Referral ID Status Reason Start Date Expiration Date Visits Requested Visits Authorized [id number] Authorized PCP Requested Referral 04/11/2024 04/11/2025 1 [...] section and content) DATE CREATED AUTHOR 11/30/2021 [facility] DATE CREATED AUTHOR AUTHOR'S ORGANIZ ATION [facility]2023 [facility] DATE CREATED AUTHOR AUTHOR'S ORGANIZ ATION 05/08/2024 [facility] dical [facility] DATE CREATED AUTHOR AUTHOR'S ORGANIZ ATION 06/09/2024 [facility] DATE CREATED AUTHOR AUTHOR'S ORGANIZ ATION 06/18/2024 [facility] DATE CREATED AUTHOR AUTHOR'S ORGANIZ ATION 11/29/2024 [facility] DATE CREATED AUTHOR AUTHOR'S ORGANIZ ATION 12/15/2024 [facility] DATE CREATED AUTHOR AUTHOR'S ORGANIZ ATION 12/16/2024 [facility] DATE CREATED AUTHOR AUTHOR'S ORGANIZ ATION 12/17/2024 [facility] DATE CREATED AUTHOR AUTHOR'S ORGANIZ ATION 12/24/2024 [facility] Source Comments (unrecognize d section and content) In the event this informatio n is protected by the Federal Confidentiality of Alcohol and Drug Abuse Patient Records regulations: The Federal rules restrict any use of the information to criminally investigate or prosecute any alcohol or drug abuse patient.[facility] the event this information is protected by the Federal Confidentiality of Alcohol and Drug Abuse Patient Records regulations: The Federal rules restrict any use of the information to criminally investigate or prosecute any alcohol or drug abuse patient.[facility] the event this information is protected by the Federal Confidentiality of Alcohol and Drug Abuse Patient Records regulations: The Federal rules restrict any use of the information to criminally investigate or prosecute any alcohol or drug abuse patient.[facility] the event this information is protected by the Federal Confidentiality of Alcohol and Drug Abuse Patient Records regulations: The Federal rules restrict any use of the information to criminally investigate or prosecute any alcohol or drug abuse patient.[facility] the event this information is protected by the Federal Confidentiality of Alcohol and Drug Abuse Patient Records regulations: The Federal rules restrict any use of the information to criminally investigate or prosecute any alcohol or drug abuse patient.[facility] the event this information is protected by the Federal Confidentiality of Alcohol and Drug Abuse Patient Records regulations: The Federal rules restrict any use of the information to criminally investigate or prosecute any alcohol or drug abuse patient.[facility] the event this information is protected by the Federal Confidentiality of Alcohol and Drug Abuse Patient Records regulations: The Federal rules restrict any use of the information to criminally investigate or prosecute any alcohol or drug abuse patient.[facility] the event this information is protected by the Federal Confidentiality of Alcohol and Drug Abuse Patient Records regulations: The Federal rules restrict any use of the information to criminally investigate or prosecute any alcohol or drug abuse patient.[facility] the event this information is protected by the Federal Confidentiality of Alcohol and Drug Abuse Patient Records regulations: The Federal rules restrict any use of the information to criminally investigate or prosecute any alcohol or drug abuse patient.[facility] the event this information is protected by the Federal Confidentiality of Alcohol and Drug Abuse Patient Records regulations: The Federal rules restrict any use of the information to criminally investigate or prosecute any alcohol or drug abuse patient.[facility]In the event this information is protected by the Federal Confidentiality of Alcohol and Drug Abuse Patient Records regulations: The Federal rules restrict any use of the information to criminally investigate or prosecute any alcohol or drug abuse patient.[facility]In the event this information is protected by the Federal Confidentiality of Alcohol and Drug Abuse Patient Records regulations: The Federal rules restrict any use of the information to criminally investigate or prosecute any alcohol or drug abuse patient.[facility]In the event this information is protected by the Federal Confidentiality of Alcohol and Drug Abuse Patient Records regulations: The Federal rules restrict any use of the information to criminally investigate or prosecute any alcohol or drug abuse patient.[facility]In the event this information is protected by the Federal Confidentiality of Alcohol and Drug Abuse Patient Records regulations: The Federal rules restrict any use of the information to criminally investigate or prosecute any alcohol or drug abuse patient.[facility]In the event this information is protected by the Federal Confidentiality of Alcohol and Drug Abuse Patient Records regulations: The Federal rules restrict any use of the information to criminally investigate or prosecute any alcohol or drug abuse patient.[facility] the event this information is protected by the Federal Confidentiality of Alcohol and Drug Abuse Patient Records regulations: The Federal rules restrict any use of the information to criminally investigate or prosecute any alcohol or drug abuse patient.[facility]In the event this information is protected by the Federal Confidentiality of Alcohol and Drug Abuse Patient Records regulations: The Federal rules restrict any use of the information to criminally investigate or prosecute any alcohol or drug abuse patient.[facility]In the event this information is protected by the Federal Confidentiality of Alcohol and Drug Abuse Patient Records regulations: The Federal rules restrict any use of the information to criminally investigate or prosecute any alcohol or drug abuse patient.[facility] [place] Reason for Visit (unrecogniz ed section and [...] INJECTION, ZOLEDRONIC ACID, 1 MG Nidia Weston, VAMP CRE[employer]ER.SHEETER HELPER [address] [place] [address] Rheu Infusion Count Includes [facility] Maria De Jesus [address] [place] [address] Referral ID Status Reason Start Date Expiration Date V isits Requested Visits Authorized [id number] Authorized 04/12/2024 04/12/2025 1 1 Care Teams (unrecognized sec tion and content) [employer] Relationship Specialty Start Date End Date Jose L Lackey MD PCP - General Family Practice 01/18/14 [employer] Relationship Specialty Start Date End Date Jose L Lackey MD PCP - General Family Medicine 01/18/14 [employer] Relationship Specialty Start Date End Date Jose L Lackey MD PCP - General Family Medicine 01/18/14 [employer] Relationship Specialty Start Date End Date Jose L Lackey MD PCP - General Family Medicine 01/18/14 [employer] Relationship Specialty Start Date End Date Jose L Lackey MD PCP - General Family Medicine 01/18/14 [employer] Relationship Specialty Start Date End Date Jose L Lackey MD PCP - General Family Medicine 01/18/14 [employer] Relationship Specialty Start Date End Date Jose L Lackey MD PCP - General Family Medicine 01/18/14 [employer] Relationship Specialty Start Date End Date Jose L Lackey MD PCP - General Family Medicine 01/18/14 [employer] Relationship Specialty Start Date End Date Jose L Lackey MD PCP - General Family Medicine 01/18/14 [employer] Relationship Specialty Start Date End Date Jose L Lackey MD PCP - General Family Medicine 01/18/14 [employer] Relationship Specialty Start Date End Date Jose L Lackey MD PCP - [facility] 01/18/14 [employer] Relationship Specialty Start Date End Date Jose L Lackey MD PCP - [facility] 01/18/14 [employer] Relationship Specialty Start Date End Date Jose L Lackey MD PCP - [facility] 01/18/14 [employer] Relationship Specialty Start Date End Date Jose L Lackey MD PCP - [facility] 01/18/14 FOR RECORDS PERTAINING TO [...] BE BASED ON THE PRIMARY CLINICAL RECORDS. [facility]. provides no warranty or guarantee of the accuracy or completeness of information in this document.
[2025-01-28] MEDS: METHYLPREDNISOLONE SOD SUCC PF 40 MG/ML VIAL IM (13:15)
--- NOTE | 2025-01-28 14:13 | ED_ITS ---
HPI - Extremity Problem General Chief complaint: Extremity Problem, Nontraumatic Stated complaint: L ARM, L SHOULDER, L WRIST, L KNEE PAIN Time Seen by Provider: 01/28/25 12:52 Source: patient Mode of arrival: walk-in History of Present Illness HPI Narrative: The patient have a history of rheumatoid arthritis with obvious deformity to his upper extremity and hand, the patient is coming to the ER with shoulder pain as well as hand pain that been going on for at least few days exacerbating his chronic pain, patient supposed to follow-up with rheumatology next week. He had an x-ray done as outpatient by his primary care to his left shoulder for evaluation The patient have no acute complaint of fall or any trauma and he is coming to the ER after the Mobic he was prescribed was not helpful Patient requested a steroid shot that he was provided with before that helped his symptoms Related Data Previous Rx's ?Medication ?Instructions ?Recorded prednisone 20 mg tablet 40 mg (2 x 20 mg) PO DAILY 5 days 01/28/25 #10 tabs Allergies Allergy/AdvReac Type Severity Reaction Status Date / Time No Known Drug Allergies Allergy Verified 01/16/25 13:18 Review of Systems ROS Status of ROS 10 or more systems reviewed and unremark able except as noted in history and below PFSH PFSH Social History Little interest or pleasure in doing things: not at all Feeling down, depressed, or hopeless: not at all Exam Narrative Exam Narrative: Nurses notes and vital signs reviewed and patient is not hypoxic. General: Well-appearing and in no apparent distress. Skin: Warm, dry, no pallor noted. Upper extremity; the patient have significant deformities boutonniere and [place]- David deformity of the hand and he also have some deformities in his wrist and tenderness upon palpation of his left scapula, no vascular injury detected Cardiovascular: Regular Rate and Rhythm without murmur, gallop or rub. Respiratory: No accessory muscle use or respiratory distress. Lungs are clear to auscultation, no wheezing, rales or rhonchi Chest Wall: no tenderness Back: No midline thoracic or lumbar vertebral tenderness. No CVA tenderness GI: Abdomen is soft, non-distended. Normal bowel sounds. No masses appreciated. No tenderness to palpation. No rebound, guarding, or rigidity noted. Neurological: A&O x4. No cranial nerve dysfunction observed. No truncal ataxia. Moves all extremities. Sensation intact. Psychiatric: Cooperative and interactive. Normal mood and affect. Constitutional Vital Signs, click to edit/add: Last Vital Signs Temp 98 F 01/28/25 12:44 Pulse 94 H 01/28/25 12:44 Resp 16 01/28/25 12:44 BP 149/88 H 01/28/25 12:44 Pulse Ox 97 01/28/25 12:44 Course Vital Signs Vital signs: Vital Signs Temperature 98 F 01/28/25 12:44 Pulse Rate 94 H 01/28/25 12:44 Respiratory Rate 16 01/28/25 12:44 Blood Pressure 149/88 H 01/28/25 12:44 Pulse Oximetry 97 01/28/25 12:44 Temperature 98 F 01/28/25 12:44 Pulse Rate 94 H 01/28/25 12:44 Respiratory Rate 16 01/28/25 12:44 Blood Pressure 149/88 H 01/28/25 12:44 Pulse Oximetry 97 01/28/25 12:44 MDM - Extremity (Nontraumatic) MDM Narrative Medical decision making narrative: Patient current presentation is mostly secondary to inflammation from arthritis Already had an x-ray on the 10th of this month which is 5 days ago that showed multiple small chronic rotator cuff tears as well Right now the patient will be provided with methylprednisone IM shot in the ER discharged home with 5 days of prednisone The patient is to follow up with primary care physician in next 2-3 days or to return to the emergency department should any of the signs or symptoms worsen or new symptoms develop. The patient agrees with the following Diagnosis and Treatment plan and the patient will be discharged home. Discharge Plan Discharge Chief Complaint: Extremity Problem, Nontraumatic Clinical Impression: Arthritis Patient Disposition: Home, Self-Care Time of Disposition Decision: 13:06 Condition: Good Prescriptions / Home Meds: New prednisone 20 mg tablet 40 mg PO DAILY 5 Days Qty: 10 0RF Print Language: Maltese Instructions: Arthritis (ED) Referrals: Norm Wang MD [Primary Care Provider] - 1 week Discharge Date/Time: 01/28/25 13:19
== END 2025-01-28 13:19 | disposition home or self-care (01) ==
PROVIDERS: Emergency Provider Emergency Medicine; PCP Family Medicine
DX: M06.9 Rheumatoid arthritis, unspecified (principal)
CPT/HCPCS: 96372; 99284; J2919

== ENCOUNTER 2025-02-03 06:44 | Outpatient (OUT) | payer OTHER, MEDICAID, SELFPAY ==
--- OUTSIDE RECORDS SUMMARY | 2025-02-03 06:48 | XMS_ITS | CCD ---
Author Organization [facility] Care Team Providers Care Sql Database Developer Name Role Phone Rigo Gonzalez Attending Provider Jose L Lackey Primary Care Provider Jose L Lackey MD Primary Care Provider [phone] Jose L Lackey MD Primary Care Provider [phone] ZIYAD ., DR DOMINGO Primary Care Unavailable HOY ., DR DOMINGO Consulting Unavailable HOY ., DR DOMINGO Attending Unavailable HOY ., DR DOMINGO Admitting Unavailable MATHER, DR KALEIGH Strong Consulting Unavailable HOY ., [...] Jose L Lackey MD Primary Care Provider [phone] DAMION MABRY Attending Unavailable DAMION MABRY [...] Sarmini, Salmon Talal Admitting Unavaila ble Sarmini, Salomn Talal Attending Unavaila ble ZIYAD, JOSE L [...] Medication Allergies] Propensity to adverse reactions (disorder) [facility] Repository Medications Current Medications Medication Drug [...] in am, 3 noon, 2 pm), per warehouse administrative assistant 0 Active Comment on above: Take by mouth. takes 8 pills a days, divided three times daily (3 in am, 3 noon, 2 pm), per warehouse administrative assistant TAKE 2 TABLETS BY MO UT 4 [...] mg subcutaneously every 2 weeks. Prescribed by Hospice Care Consultant : Nel Lebron MD Previously prescr. by Ronald Brown MD 0 02/18/2021 05/04/2023 Discontinued Comment on above: Inject 40 mg subcuta neously every 2 weeks. Prescribed by Hospice Care Consultant : Nel Lebron MD Previously prescr. by [...] on above: TAKE 1 CAPSULE BY MO [facility] 4 TIMES A DAY 0.5 ml [...] (2 sources) Drug therapy finding; Translations: [Other termite treater helper (current) drug therapy] Episodic Other bone disease [...] te Episodic/Chronic Other aftercare (1 source) Other termite treater helper (current) drug therapy; Translations: [OTH [facility] CURRENT DRUG THERAPY] Onset: 09-26-2022 Episodic Other [...] Qn (Bld) 0.09 International_Unit/mL Invalid Interpretation Code [facility] Comment on above: Performed By: #### 1 [id number] #### [facility] [address] [place] [address] M. tuberculosis stim IFN-g by CD4+ CD8+ T-cells corrected for background Qn (Bld) 0.07 International_Unit/mL Invalid Interpretation Code [facility] Comment on above: Performed By: #### 1 [id number] #### [facility] [address] [place] [address] M. tuberculosis stim IFN-g by CD4+ T-cells corrected for background Qn (Bld) 0.07 International_Unit/mL Invalid Interpretation Code [facility] Comment on above: Performed By: #### 1 [id number] #### [facility] [address] [place] [address] M. tuberculosis stim IFN-g Ql (Bld) [Interp] Negative Invalid Interpretation Code Negative [facility] Comment on above: Result Comment: No r [...] methodology Performed at: [facility] [address] [place], [place] [id number] PhD Tarun Olivas Performed By: #### 1 [id number] #### [facility] [address] [place] [address] Mitogen stimulated gamma interferon corrected for background Qn (Bld) >10.00 Invalid Interpretation Code [facility] Comment on above: Performed By: #### 1 [id number] #### [facility] [address] [place] [address] Service comment (Unsp spec) [Interp] Comment Invalid Interpretation Code [facility] Comment on above: Result Comment: Malachi tiFERON-TB [...] for the test. Performed By: #### 1 [id number] #### [facility] [address] [place] [address] AMA Ab Scron 12-15-2024 Mitochondria M2 IgG Qn (S) <20.0 Invalid Interpretation Code 0.0-20.0 [facility] Comment on above: Result Comment: Nega tive 0.0 - 20.0 Equivocal 20.1 - 24.9 Positive >24.9 Mitochondrial (M2) Antibodies are found in 90-96% of patients with primary biliary cirrhosis. Performed at: [facility] [address] [place], [place] [id number] PhD Tarun Olivas Performed By: #### 1 [id number] #### [facility] [address] [place] [address] Celiac Disease Comprehensive on 12-15-2024 Endomysium IgA Ql (S) Negative Invalid Interpretation Code Negative [facility] Comment on above: Performed By: #### 1 [id number] #### [facility] [address] [place] [address] Gliadin peptide IgA Qn (S) 5 unit(s) Invalid Interpretation Code 0-19 [facility] Comment on above: Result Comment: Nega tive 0 - 19 Weak Positive 20 - 30 Moderate to Strong Positive >30 Performed By: #### 1 [id number] #### [facility] [address] [place] [address] Gliadin peptide IgG Qn (S) 2 unit(s) Invalid Interpretation Code 0-19 [facility] Comment on above: Result Comment: Nega tive 0 - 19 Weak Positive 20 - 30 Moderate to Strong Positive >30 Performed By: #### 1 [id number] #### [facility] [address] [place] [address] IgA [Mass/Vol] 199 mg/dL Invalid Interpretation Code 90-386 [facility] Comment on above: Result Comment: Perf ormed at: [facility] [address] [id number] PhD Tarun Olivas Performed By: #### 1 [id number] #### [facility] [address] [place] [address] tTG IgA Qn (S) <2 Invalid Interpretation Code 0-3 [facility] Comment on above: Result Comment: Nega tive 0 - 3 Weak Positive 4 - 10 Positive >10 Tissue Transglutaminase (tTG) has been identified as the endomysial antigen. Studies have demonstr- ated that endomysial IgA antibodies have over 99% specificity for gluten sensitive enteropathy. Performed By: #### 1 [id number] #### [facility] [address] [place] [address] tTG IgG Qn (S) 6 unit/mL High 0-5 [facility] Comment on above: Result Comment: Nega tive 0 - 5 Weak Positive 6 - 9 Positive >9 Performed By: #### 1 [id number] #### [facility] [address] [place] [address] Hep Bs Abon 12-15-2024 HBV surface Ab Ql (S) Non-Reactive Invalid Interpretation Code [facility] Comment on above: Result Comment: Non Reactive: Not immune to HBV infection. Equivocal: Unable to determine if anti-HBs is present at levels consistent with immunity. Reactive: Anti-HBs concentration detected at greater than 10 mIU/mL. Individual is considered to be immune to infection with HBV. Performed at: [facility] [address] [place] [id number] PhD Tarun Olivas Performed By: #### 2 [id number] #### [facility] [address] [place] [address] Hep Bs Agon 12-15-2024 HBV surface Ag IA Ql Negative Invalid Interpretation Code Negative [facility] Comment on above: Result Comment: Perf ormed at: [facility] [address] [id number] PhD Tarun Olivas Performed By: #### 2 [id number] #### [facility] [address] [place] [address] Ambulatory Visit Summaryon 0 12-14-2024 Ambulatory Visit [...] With: Ricky ROBLERO, Luis Antonio Tiwari Where: [facility] [address] [place] [address]- You Need to Complete the Following C-Reactive [...] PSA (prostate specific antigen) Ulcerative colitis, universal Freedom ulcerative colitis Ureteral stone with hydronephrosis Urethral [...] for choosing us for your care. Normal [facility] CBC w/ Auto Diffon 5 Basophils/100 WBC (Bld) 0.5 % Normal 0.0-2.0 [facility] Comment on above: Performed By: #### 2 [id number] #### [facility] [address] [place] [address] Basophils/Leukocytes Auto (Bld) [Pure # fraction] 0.0 E9/L Normal 0.0-0.2 [facility] Comment on above: Performed By: #### 2 [id number] #### [facility] [address] [place] [address] Eosinophils (Bld) [#/Vol] 0.0 E9/L Normal 0.0-0.5 [facility] Comment on above: Performed By: #### 2 [id number] #### [facility] [address] [place] [address] Eosinophils/100 WBC (Bld) 0.0 % Normal 0.0-8.0 [facility] Comment on above: Performed By: #### 2 [id number] #### [facility] [address] [place] [address] Erythrocyte distribution width (RBC) [Ratio] 15.6 % High 10.9-14.2 [facility] Comment on above: Performed By: #### 2 [id number] #### [facility] [address] [place] [address] Hematocrit (Bld) [Volume fraction] 36.2 % Low 37.7-49.0 [facility] Comment on above: Performed By: #### 2 [id number] #### [facility] [address] [place] [address] Hemoglobin (Bld) [Mass/Vol] 12.6 g/dL Low 13.5-17.5 [facility] Comment on above: Performed By: #### 2 [id number] #### [facility] [address] [place] [address] Lymphocytes (Bld) [#/Vol] 1.6 E9/L Normal 1.0-4.0 [facility] Comment on above: Performed By: #### 2 [id number] #### [facility] [address] [place] [address] Lymphocytes/100 WBC (Bld) 24.8 % Normal 14.0-50.0 [facility] Comment on above: Performed By: #### 2 785807 #### [facility] [address] [place] [address] MCH (RBC) [Entitic mass] 31.7 pg Normal 27.0-34.0 [facility] Comment on above: Performed By: #### 2 [id number] #### [facility] [address] [place] [address] MCHC (RBC) [Mass/Vol] 34.9 g/dL Normal 31.4-36.0 [facility] Comment on above: Performed By: #### 2 [id number] #### [facility] [address] [place] [address] MCV (RBC) [Entitic vol] 90.8 fL Normal 80.0-100.0 [facility] Comment on above: Performed By: #### 2 [id number] #### [facility] [address] [place] [address] Monocytes (Bld) [#/Vol] 0.5 E9/L Normal 0.2-1.0 [facility] Comment on above: Performed By: #### 2 [id number] #### [facility] [address] [place] [address] Neutrophils (Bld) [#/Vol] 4.4 E9/L Normal 2.0-7.5 [facility] Comment on above: Performed By: #### 2 [id number] #### [facility] [address] [place] [address] Neutrophils/100 WBC (Bld) 67.2 % Normal 36.0-75.0 [facility] Comment on above: Performed By: #### 2 726179 #### [facility] [address] [place] [address] Platelet 261.0 E9/L Normal 150.0-500. 0 [facility] Comment on above: Performed By: #### 2 [id number] #### [facility] [address] [place] [address] Platelet mean volume (Bld) [Entitic vol] 6.9 fL Normal 6.4-10.8 [facility] Comment on above: Performed By: #### 2 [id number] #### [facility] [address] [place] [address] RBC (Bld) [#/Vol] 4.0 E12/L Low 4.3-5.9 [facility] Comment on above: Performed By: #### 2 [id number] #### [facility] [address] [place] [address] WBC corrected for nucl RBC Auto (Bld) [#/Vol] 6.6 E9/L Normal 4.0-11.0 [facility] Comment on above: Performed By: #### 2 036502 #### [facility] [address] [place] [address] CMPon 12-14-2024 Albumin [Mass/Vol] 4.1 g/dL Normal 3.3-5.0 [facility] Comment on above: Performed By: #### 2 [id number] #### [facility] [address] [place] [address] Albumin/Globulin (S) [Mass conc ratio] 1.5 Normal 1.1-2.2 [facility] Comment on above: Performed By: #### 2 [id number] #### [facility] [address] [place] [address] ALP [Catalytic activity/Vol] 88 Int._Unit/L Normal 21-98 [facility] Comment on above: Performed By: #### 2 [id number] #### [facility] [address] [place] [address] ALT No additional P-5'-P [Catalytic activity/Vol] 27 Int._Unit/L Normal 6-46 [facility] Comment on above: Performed By: #### 2 [id number] #### [facility] [address] [place] [address] Anion gap [Moles/Vol] 9 mmol/L Normal 6-16 [facility] Comment on above: Performed By: #### 2 [id number] #### [facility] [address] [place] [address] AST [Catalytic activity/Vol] 29 Int._Unit/L Normal 5-43 [facility] Comment on above: Performed By: #### 2 [id number] #### [facility] [address] [place] [address] Bilirubin [Mass/Vol] 0.4 mg/dL Normal 0.0-1.1 [facility] Comment on above: Performed By: #### 2 497002 #### [facility] [address] [place] [address] Calcium [Mass/Vol] 9.1 mg/dL Normal 8.9-11.1 [facility] Comment on above: Performed By: #### 2 [id number] #### [facility] [address] [place] [address] Chloride [Moles/Vol] 108 mmol/L Normal 101-111 [facility] Comment on above: Performed By: #### 2 214192 #### [facility] [address] [place] [address] CO2 [Moles/Vol] 27 mmol/L Normal 21-31 [facility] Comment on above: Performed By: #### 2 462219 #### [facility] [address] [place] [address] Creatinine [Mass/Vol] 0.8 mg/dL Normal 0.5-1.3 [facility] Comment on above: Performed By: #### 2 995297 #### [facility] [address] [place] [address] Globulin (S) [Mass/Vol] 2.8 g/dL Normal 1.4-4.0 [facility] Comment on above: Performed By: #### 2 [id number] #### [facility] [address] [place] [address] Glucose [Mass/Vol] 94 mg/dL Normal 55-199 [facility] Comment on above: Performed By: #### 2 [id number] #### [facility] [address] [place] [address] Potassium [Moles/Vol] 4.7 mmol/L Normal 3.5-5.3 [facility] Comment on above: Performed By: #### 2 898641 #### [facility] [address] [place] [address] Protein [Mass/Vol] 6.9 g/dL Normal 6.0-7.8 [facility] Comment on above: Performed By: #### 2 657863 #### [facility] [address] [place] [address] Sodium [Moles/Vol] 139 mmol/L Normal 135-145 [facility] Comment on above: Performed By: #### 2 508015 #### [facility] [address] [place] [address] Urea nitrogen [Mass/Vol] 16 mg/dL Normal 5-21 [facility] Comment on above: Performed By: #### 2 [id number] #### [facility] [address] [place] [address] Urea nitrogen/Creatinine [Mass ratio] 20 No Units Normal 10-20 [facility] Comment on above: Performed By: #### 2 325771 #### [facility] [address] [place] [address] CRPon 12-14-2024 CRP [Mass/Vol] 0.2 mg/dL Normal <=1.9 [facility] Comment on above: Performed By: #### 2 566351 #### [facility] [address] [place] [address] Gastroenterology Office/Clin ic Noteon 12-14-2024 Gastroenterology Office/Clinic [...] Last visit 06/13/24 w/Dr. García: Assessment/Plan 1. Freedom ulcerative colitis (K51.00: Ulcerative (chronic) pancolitis without [...] next colonoscopy, he prefers to stay at [facility] He has also RA, no specific therapy for now, follows with Dr. Valente at [place] We discussed that having this lesion in [...] 89.5 fL (03/02/24) Chloride: 107 mmol/L (03/02/24) Galax Absolute: 0.5 E9/L (03/02/24) CO2: 27 mmol/L (03/02/24) Galax Auto: 8.2 % (03/02/24) Creatinine: 0.8 mg/dL (03/02/24) MPV: 6.9 fL (03/02/24) Globulin: 3 gm/dL (03/02/24) Neutro Absolute: 4.2 E9/L (03/02/24) Glucose Lvl: 97 mg/dL (03/02/24) Neutro Auto: 63.6 % (03/02/24) Potassium Lvl: 3.6 mmol/L (03/02/24) Platelet: 344 E9/L (03/02/24) Sodium Lvl: 141 mmol/L (03/02/24) RBC: 3.9 E12/L Low (03/02/24) Total Protein: 7 (more content not included)... Normal [facility] Comment on above: Result Comment: Elec tronically Signed By: Ricky ROBLERO, Luis Antonio Tiwari\chelsea\Date and Time Signed: 12/14/24 08:52 EST eGFRon 12-14-2024 eGFR 101 mL/min/1.73 m2 Normal >=59 [facility] Comment on above: Performed By: #### 1 [id number] #### [facility] [address] [place] [address] Ambulatory Visit Summaryon 0 11-21-2024 Ambulatory Visit [...] With: Ricky ROBLERO, Luis Antonio Tiwari Where: [facility] [address] [place] [address]- You Need to Schedule the Following Appointments Follow Up with DARRELL ROBLERO, LOREE Bunch When: Where: [facility] [address], [place] [address]- Medications What How Much When Instructions Unchanged [...] PSA (prostate specific antigen) Ulcerative colitis, universal Freedom ulcerative colitis Ureteral stone with hydronephrosis Urethral [...] What are (more content not included)... Normal [facility] CNPNon 11-21-2024 CNPN Telephone ([facility]) ----- JAM TOSCANO ([id number]) 1965 M Date Time Provider Department 11/21/24 [...] toe 3 days ago. 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 Denies any change in [...] apt with me or any rheum ANGÉLICA (RECOVERY UNIT OPERATOR or PA) who has opening soon. thank you kindly, Estephania Lara LPN 11/23/2024 8:01 AM Signed Please offer appt with Dr Dubon or RECOVERY UNIT OPERATOR, if patient still interested. Jordyn Roberson 11/23/2024 9:[address] Dubon - I tried reaching Ms. Tocsano via phone (several times), but I continued [...] (more content not included)... Normal [facility] PSA Totalon 11-21-2024 Prostate specific Ag [Mass/Vol] 3.3 ng/mL Normal 0.1-3.5 [facility] Comment on above: Result Comment: The concentration of PSA determined by different manufacturers can vary due to differences in assay methods and reagent specificity. Values obtained from different assay methods cannot be used interchangeably. The methodology used for this result was chemiluminescence using [employer]'s Access Hybritech PSA reagent. Performed By: #### 1 [id number] #### [facility] [address] [place] [address] [facility] 10-05-2024 [facility] Office Visit (ANGEL ) ----- OPALJAM DONALD ([id number]) 1965 M Date Time Provider Department 10/05/24 7:20 AM DARRIAN DUBON During your visit today, we recorded the following information about you: Pulse Blood pressure Weight 66/minute 128/76 77.7 kg Darrian Dubon MD 10/16/2024 7:47 PM Signed FOLLOW UP VISIT Patient's Name: Jam Murguiaaletha [facility] [id number] PCP: Jose L Lackey MD [address] [place] [phone] Consult Requested by: Jose L Lackey MD [address] [place] [address] Other physicians: Hospice Care Consultant prev. Nel Lebron MD (his prev. warehouse administrative assistant left- Ronald Brown MD) ; Now following [...] No stiffness He is on sulfasalazine per warehouse administrative assistant for his UC and this has been controlling his RA He is pleased with his treatment regimen He also states that his IBD is well controlled, states told is in remission, on Entyvio Doing exercise and working with representative personal service at the gym and will be going [...] in IBD and is following with local warehouse administrative assistant for that. Has been on Humira since Sep 2020 (started with 80 mg loading dose and since has been on 40 mg every 2 wks) He was pleased with Enbrel response to his RA and later was switched to Humira, reports has similar benefit and is pleased with response. His warehouse administrative assistant switched him to Humira for optimal mgt of IBD and he feels this has helped his IBD better. Reports still gets 8 BM's a day, does not have BM at night, does not have to wake up from sleep. Has been following with his warehouse administrative assistant for his UC Had colonoscopy 11/22/2021 with reported marked improvement in asc/transv/desc colon and severe active in rectum, histopath with active colitis with erosions. States Dr. Lebron has started him on rectal enemas. Recent colonoscopy with reported active colitis. He tells me that he continues to have multiple BM's; His warehouse administrative assistant prescribed pred. course, completed recently. No jt [...] us, he is on Humira per his Hospice Care Consultant He is off Enbrel, was switched to Humira by his warehouse administrative assistant. (previously was on Enbrel 25 mg twice a wk and has been in remission since on Enbrel and very pleased with his treatment regimen) He is on Humira 40 mg every 2 wks by his Hospice Care Consultant He is on sulfasalazine, Humira and mesalamine enemas per his warehouse administrative assistant I have reviewed benefits of a whole food plant based diet He consumes dairy, cheese, sausage, hamburger. I have advised him on avoiding meats and dairy and reviewed reports and patient experience with flare of IBD and RA, as well as gastrointestinal dysbiosis. I advised him on a whole foods plant based diet. 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 Normal [facility] Ambulatory Visit Summaryon 0 06-13-2024 Ambulatory Visit Summary Ambulatory Visi t Summary ARNULFOJAM SCHUSTER :1965 Visit Date:06/13/2024 Ambulatory Visit Instructions Your Diagnosis Freedom ulcerative colitis History of colon polyps Elevated [...] (Entyvio 300 mg intravenous injection) See instructions Freedom ulcerative colitis 300 mg/ kg at week [...] Prostate calculus Rectal bleed Ulcerative colitis, universal Freedom ulcerative colitis Urethral stone Historical - Any [...] your care. Normal [facility] Gastroenterology Office/Clin ic Noteon 06-13-2024 Gastroenterology Office/Clinic [...] to repeat colon in 6 months at [facility] He has also RA, no specific therapy for now, follows with Dr. Valente at [place] We discussed that having this lesion in [...] 89.5 fL (03/02/24) Chloride: 107 mmol/L (03/02/24) Galax Absolute: 0.5 E9/L (03/02/24) CO2: 27 mmol/L (03/02/24) Galax Auto: 8.2 % (03/02/24) Creatinine: 0.8 mg/dL [...] WT: 167.2 lb BMI: 26.93 Assessment/Plan 1. Freedom ulcerative colitis (K51.00: Ulcerative (chronic) pancolitis without complications) UC History: Severe ulcerative colitis , dx 03/2015, started on (more content not included)... Normal [facility] Comment on above: Result Comment: Elec tronically Signed By: Ricky ROBLERO, Luis Antonio Tiwari\.br\Date and Time Signed: 06/13/24 10:35 EDT Surgical Pathology Reporton 06-07-2024 Surgical Pathology Report [facility] [address] [place] [address]- Surgical Pathology Report Collected Date/Time: 06/03/2024 10:08 [...] descending colon polyps are two fragments of omy/pink tissue measuring 0.3 and 1.2 cm in greatest dimension. The specimen is entirely submitted in one cassette. E: Received in formalin labeled with patient name, number, and rectal polyp is a single moy/pink polyp measuring 0.9 x 0.6 x 0.2 cm. The specimen is entirely submitted in one cassette. (DC) DC:[facility] Microscopic Description A-E: Microscopic examination performed unless gross only specified. The use of one or more reagents in the above tests is regulated as an analyte specific reagent (ASR). The test or tests are ordered following initial H&E microscopic examination. The performance characteristics were determined by the Laboratory of [facility]. They have not been cleared or approved by the US Food and Drug Administration. The FDA has determined that such clearance or approval is not necessary. These tests are used for clinical purposes. They should not be regarded as investigational or for research. Appropriate positive and negative controls are performed and are acceptable. Normal [facility] Comment on above: Performed By: #### 4 [id number] #### [facility] [address] [place] [address] Main OR Intraoperative Recor don 06-06-2024 Main OR Intraoperative Record Main OR Intraoperative Record IntraOp Document Type FT Summary Primary Physician: Gisele ROBLERO, Asim Arroyo Finalized Date/Time: 06/06/24 09:08:21 Pt. Name: JAM TOSCANO /Sex: 1965 Male Med Rec #: [id number] Physician: Ricky ROBLERO, Luis Antonio Tiwari Financial #: [id number] Pt. Type: O Room/Bed: / Admit/Disch: 06/03/24 [...] Espinosa Role Performed Anesthesiologist Surgeon - Primary Rv Repairer - Primary Pilot Control Operator Time In 06/03/24 10:03:00 06/03/24 10:03:00 06/03/24 [...] MD, Asim Arroyo, Alonzo RAMESH, Jeniffer Horowitz POURING CRANE OPERATOR, Claire Villalobos Time Out Complete 06/03/24 [...] and tissue Entry 1 Skin Integrity Intact, [place], Warm, and Skin Abnormality No Dry Outcomes Met? Yes Last Modified By: (more content not included)... Normal [facility] Colonoscopy Procedure Report on 06-03-2024 Esophagogastroduodenoscop [...] 1-2 after discharge EGd with bx Normal [facility] [facility] Comment on above: Other Comment: Sheila trinh Attachment - attachment storage system not supported [id number] Can be viewed in source systemMissing Attachment - attachment storage system not supported [id number] Can be viewed in source systemMissing Attachment - attachment storage system not supported [id number] Can be viewed in source systemMissing Attachment - attachment storage system not supported [id number] Can be viewed in source systemMissing Attachment - attachment storage system not supported [id number] Can be viewed in source systemMissing Attachment - attachment storage system not supported [id number] Can be viewed in source systemMissing Attachment - attachment storage system not supported [id number] Can be viewed in source systemMissing Attachment - attachment storage system not supported [id number] Can be viewed in source systemMissing Attachment - attachment storage system not supported [id number] Can be viewed in source system Discharge [...] EDT With: Luis Antonio García MD Where: [facility] Comment on above: Result Comment: [...] TOSCANO Don/Sex: 1965 Male Med Rec #: [id number] Physician: Luis Antonio García MD Financial #: [id number] Pt. Type: O Room/Bed: / Admit/Disch: 06/03/24 [...] Mary Lou Garcia RN 06/03/24 14:21 Normal [facility] Main OR Preoperative Recordo n 06-03-2024 Main OR Preoperative Record Main OR Preoperative Record Holding Area Document Type FT Summary Primary Physician: Asim Jaquez MD Finalized Date/Time: 06/03/24 09:08:09 Pt. Name: JAM TOSCANO D.O.B./Sex: 1965 Male Med Rec #: [id number] Physician: Luis Antonio García MD Financial #: [id number] Pt. Type: O Room/Bed: / Admit/Disch: 06/03/24 [...] 06/03/24 09:02 Jaguar Herrera RN 06/03/24 09:08 [facility] Liveron 06-01-2024 US Liver Exam Date/Time: 05/30/2024 [...] Zimmerman MD Transcribed by: BERNARD Technologist: ZAIRE [facility] CNOVon 05-09-2024 CNOV Office Visit (ANGEL ) ----- JAM TOSCANO ([id number]) 1965 M Date Time Provider Department 05/09/24 9:00 AM NIDIA WESTON During your visit today, we recorded the following information about you: Temperature Pulse Blood pressure Weight 98.4 degrees 89/minute 118/79 76.3 kg Nidia Weston, LABORER [employer].MARKETING ASSISTANT [employer] 05/09/2024 10:39 AM Signed Follow up Jam [...] (more content not included)... Normal [facility] Physician Orderon 05-05-2024 Physician Order [id number]#1.00TIFF [facility]24 CNPN Telephone ([facility]) ----- JAM TOSCANO ([id number]) 1965 M Date Time Provider Department 05/03/24 BEN MARTINEZ During your visit today, we recorded the following information about you: Estephania Devine LPN 05/03/2024 10:55 AM Signed Received lab results from [facility]. Results placed on your desk at [facility] for review. Kelli Madrid MA 05/05/2024 8:28 AM Signed Pt is scheduled with Nidia and infusion on Thursday -- Ben Martinez MD 05/05/2024 2:07 PM Signed For chart: [place] 05/02/24 high esr 79 (normal<20mm/hr), normal vitamin D 51.4, cmp, creat 0.94, calcium 8.7, crp<0.5 (normal<0.5mg/dL); Allergies As of Date: 05/03/2024 (No Known Allergies) Date Reviewed: 04/11/2024 Reviewed by: Nidia Weston, ADEOLA.MARKETING ASSISTANT [employer] DIV[employer] - Fully Assessed Reason for Visit: Results [...] Encounter Status:Closed by [facility] Telephone (ANGEL) ----- RIMMAJAM ([id number]) 1965 M Date Time Provider Department 04/11/24 NIDIA WESTON During your visit today, we recorded the following information about you: Nidia Weston APRN.JOSE 04/11/2024 7:56 PM Addendum Please call dentist for clearance for op med reclast [facility] dental [phone] Please also call patient Xray showed Severe changes of chronic inflammatory arthritis, similar to prior. Left hand metallic foreign body. Did he injury his left hand prior ? Did he have eval on this prior if never eval I did place a consult to ortho Kelli Madrid MA 04/12/2024 12:11 PM Signed Called [facility] dental [phone] currently at lunch - will call back after 1pm Kelli Madrid MA 04/12/2024 2:35 PM Signed Spoke with [facility] requesting dental clearance letter be faxed to [phone] faxed with confirmation Notified patient of below, [...] Date Reviewed: 04/11/2024 Reviewed by: Nidia Weston APRN.MARKETING ASSISTANT [employer] DIV[employer] - Fully Assessed Reason for Visit: Patient Update [1234] Primary Visit Diagnosis:Foreign body of left hand, sequela [S60.552S] Order(s):CONSULT TO ORTHOPAEDICS [9026] Order #: [id number]: 1 FUTURE Prescriptions as of 05/03/2024 - [...] KELLI MADRID on 04/12/[address] [facility] Pre-Certification Formon Pre-Certification Form [id number]#1.00TIFF Normal [facility] CNOVon 03-14-2024 CNOV Office Visit (ANGEL ) ----- JAM TOSCANO ([id number]) 1965 M Date Time Provider Department 03/14/24 9:00 AM NIDIA WESTON During your visit today, we recorded the following information about you: Pulse Blood pressure Weight 97/minute 121/83 74.9 kg Nidia Weston, [employer].MARKETING ASSISTANT [employer] 04/11/2024 7:56 PM Signed Follow up Jam [...] work or invasive procedures No dental concerns [facility] dental [phone] No serious infections or fevers Stopped celebrex [...] (more content not included)... Normal [facility] XR HAND 3V PA/LAT/OBL BILon 03-14-2024 [...] to prior. Left hand metallic foreign body. Fitting Room Inspector: CODY Transcribe Date/Time: Mar 14 2024 1:31P Dictated by : HORACIO DAWSON MD This examination was interpreted and the report reviewed and electronically signed by: HORACIO DAWSON MD on Mar 14 2024 5:53PM EST [id number] Normal [facility] XR Hand - bilateral PA and L ateral and Obliqueon 03-14-2024 IMPRESSION: Severe changes of chronic inflammatory arthritis, similar to prior. Left hand metallic foreign body. Fitting Room Inspector: CODY Transcribe Date/Time: Mar 14 2024 1:31P [...] of arthritis TECHNIQUE: XR HAND 3V PA/LAT/OBL MLEISSA Laterality: BILATERAL Number of different views (projections): [...] to prior. Left hand metallic foreign body. Fitting Room Inspector: PSCB Transcribe Date/Time: Mar 14 2024 1:31P Dictated by : HORACIO DAWSON MD This examination was interpreted and the report reviewed and electronically signed by: HORACIO DAWSON MD on Mar 14 2024 5:53PM [facility] Radiology Study observation (narrative) Franky abbott [facility] XR Hand - bilateral PA and L ateral and ObliqueOrdered By: Ccf Provider on 03-14-2024 [facility] Consent for Procedure/Surger yon 03-07-2024 Consent for Procedure/Surgery [id number]#1.00TIFF Normal [facility] Ambulatory Visit Summaryon 0 03-04-2024 Ambulatory Visit [...] With: Ricky ROBLERO, Luis Antonio Tiwari Where: [facility] Invalid Interpretation Code History of colon polyps [facility] Gastroenterology Office/Clin ic Noteon 03-04-2024 Gastroenterology Office/Clinic Note Chief Complaint universal UC HPI Staff Patient is a 58 year old male who presents today for a follow up to Colonoscopy on 02/26/24. Still taking Entyvio q8 weeks. Last visit 12/11/23 w/Dr. García: Assessment/Plan 1. Freedom ulcerative colitis (K51.00: Ulcerative (chronic) pancolitis without [...] for now, follows with Dr. Valente at [place] For PCP, please make sure patient is [...] 89.5 fL (03/02/24) Chloride: 107 mmol/L (03/02/24) [place] Absolute: 0.5 E9/L (03/02/24) CO2: 27 mmol/L (03/02/24) [place] Auto: 8.2 % (03/02/24) Creatinine: 0.8 mg/dL [...] History of Present Illness Still taking Entyvio [id number], patient states this is the best hes [...] 126/80 HT (more content not included)... Normal [facility] Comment on above: Result Comment: Elec tronically Signed By: Ricky ROBLERO, Luis Antonio Tiwari\.br\Date and Time Signed: 03/04/24 09:28 EDT\.br\Electronically Co-Signed By: Naz Gupta MA\.br\Date and Time Co-Signed: 03/04/24 09:23 EDT IntraOperative Documentson 0 03-04-2024 IntraOperative Documents [id number]#1.00TIFF Normal [facility] CBC w/ Auto Diffon 4 Basophils/100 WBC (Bld) 0.6 % Normal 0.0-2.0 [facility] Comment on above: Performed By: #### 2 123843, 6995797, [id number] #### [facility] [address] [place] [address] Basophils/Leukocytes Auto (Bld) [Pure # fraction] 0.0 E9/L Normal 0.0-0.2 [facility] Comment on above: Performed By: #### 2 613772, 8542314, 42097330 #### [facility] [address] [place] [address] Eosinophils (Bld) [#/Vol] 0.0 E9/L Normal 0.0-0.5 [facility] Comment on above: Performed By: #### 2 832768, 2550631, 23062641 #### [facility] [address] [place] [address] Eosinophils/100 WBC (Bld) 0.0 % Normal 0.0-8.0 [facility] Comment on above: Performed By: #### 2 211635, 1095019, 58169853 #### [facility] [address] [place] [address] Erythrocyte distribution width (RBC) [Ratio] 15.1 % High 10.9-14.2 [facility] Comment on above: Performed By: #### 2 951508, 9776876, 98490062 #### [facility] [address] [place] [address] Hematocrit (Bld) [Volume fraction] 34.5 % Low 37.7-49.0 [facility] Comment on above: Performed By: #### 2 245763, 1714329, 63110942 #### [facility] [address] [place] [address] Hemoglobin (Bld) [Mass/Vol] 11.3 g/dL Low 13.5-17.5 [facility] Comment on above: Performed By: #### 2 704341, 6733749, 89132539 #### [facility] [address] [place] [address] Lymphocytes (Bld) [#/Vol] 1.8 E9/L Normal 1.0-4.0 [facility] Comment on above: Performed By: #### 2 701146, 6539248, 59962752 #### [facility] [address] [place] [address] Lymphocytes/100 WBC (Bld) 27.6 % Normal 14.0-50.0 [facility] Comment on above: Performed By: #### 2 020389, 3051952, 12534679 #### [facility] [address] [place] [address] MCH (RBC) [Entitic mass] 29.4 pg Normal 27.0-34.0 [facility] Comment on above: Performed By: #### 2 339824, 3217799, 56127567 #### [facility] [address] [place] [address] MCHC (RBC) [Mass/Vol] 32.9 g/dL Normal 31.4-36.0 [facility] Comment on above: Performed By: #### 2 844339, 2635058, 22684646 #### [facility] [address] [place] [address] MCV (RBC) [Entitic vol] 89.5 fL Normal 80.0-100.0 [facility] Comment on above: Performed By: #### 2 166795, 2180614, 78578612 #### [facility] [address] [place] [address] Monocytes (Bld) [#/Vol] 0.5 E9/L Normal 0.2-1.0 [facility] Comment on above: Performed By: #### 2 868261, 1174882, 02069599 #### [facility] [address] [place] [address] Neutrophils (Bld) [#/Vol] 4.2 E9/L Normal 2.0-7.5 [facility] Comment on above: Performed By: #### 2 322796, 1286446, 97768886 #### [facility] [address] [place] [address] Neutrophils/100 WBC (Bld) 63.6 % Normal 36.0-75.0 [facility] Comment on above: Performed By: #### 2 209316, 8395757, 46512366 #### [facility] [address] [place] [address] Platelet 344.0 E9/L Normal 150.0-500. 0 [facility] Comment on above: Performed By: #### 2 614366, 1583740, 14502929 #### [facility] [address] [place] [address] Platelet mean volume (Bld) [Entitic vol] 6.9 fL Normal 6.4-10.8 [facility] Comment on above: Performed By: #### 2 408475, 8726006, 75717967 #### [facility] [address] [place] [address] RBC (Bld) [#/Vol] 3.9 E12/L Low 4.3-5.9 [facility] Comment on above: Performed By: #### 2 803799, 6284943, 85144086 #### [facility] [address] [place] [address] WBC corrected for nucl RBC Auto (Bld) [#/Vol] 6.6 E9/L Normal 4.0-11.0 [facility] Comment on above: Performed By: #### 2 169279, 6295729, 34556606 #### [facility] [address] [place] [address] CMPon 03-02-2024 Albumin [Mass/Vol] 4.0 g/dL Normal 3.3-5.0 [facility] Comment on above: Performed By: #### 2 475221, 6860525, 54546735 #### [facility] [address] [place] [address] Albumin/Globulin (S) [Mass conc ratio] 1.3 Normal 1.1-2.2 [facility] Comment on above: Performed By: #### 2 440838, 8994770, 48795416 #### [facility] [address] [place] [address] ALP [Catalytic activity/Vol] 139 Int._Unit/L High 21-98 [facility] Comment on above: Performed By: #### 2 703346, 4736726, 05131512 #### [facility] [address] [place] [address] ALT No additional P-5'-P [Catalytic activity/Vol] 20 Int._Unit/L Normal 6-46 [facility] Comment on above: Performed By: #### 2 800975, 2550120, 56211287 #### [facility] [address] [place] [address] Anion gap [Moles/Vol] 11 mmol/L Normal 6-16 [facility] Comment on above: Performed By: #### 2 534949, 4429729, 82733699 #### [facility] [address] [place] [address] AST [Catalytic activity/Vol] 25 Int._Unit/L Normal 5-43 [facility] Comment on above: Performed By: #### 2 550370, 9002500, 78330247 #### [facility] [address] [place] [address] Bilirubin [Mass/Vol] 0.3 mg/dL Normal 0.0-1.1 [facility] Comment on above: Performed By: #### 2 660623, 3846391, 56067528 #### [facility] [address] [place] [address] Calcium [Mass/Vol] 9.4 mg/dL Normal 8.9-11.1 [facility] Comment on above: Performed By: #### 2 211342, 8790285, 95694968 #### [facility] [address] [place] [address] Chloride [Moles/Vol] 107 mmol/L Normal 101-111 [facility] Comment on above: Performed By: #### 2 658564, 8644023, 81392440 #### [facility] [address] [place] [address] CO2 [Moles/Vol] 27 mmol/L Normal 21-31 [facility] Comment on above: Performed By: #### 2 826171, 1435685, 30259916 #### [facility] [address] [place] [address] Creatinine [Mass/Vol] 0.8 mg/dL Normal 0.5-1.3 [facility] Comment on above: Performed By: #### 2 767486, 1129383, 37852829 #### [facility] [address] [place] [address] Globulin (S) [Mass/Vol] 3.0 g/dL Normal 1.4-4.0 [facility] Comment on above: Performed By: #### 2 378023, 2898352, 82766203 #### [facility] [address] [place] [address] Glucose [Mass/Vol] 97 mg/dL Normal 55-199 [facility] Comment on above: Performed By: #### 2 374108, 1912975, 32374890 #### [facility] [address] [place] [address] Potassium [Moles/Vol] 3.6 mmol/L Normal 3.5-5.3 [facility] Comment on above: Performed By: #### 2 784394, 6495004, 46583818 #### [facility] [address] [place] [address] Protein [Mass/Vol] 7.0 g/dL Normal 6.0-7.8 [facility] Comment on above: Performed By: #### 2 800060, 0757663, 37554636 #### [facility] [address] [place] [address] Sodium [Moles/Vol] 141 mmol/L Normal 135-145 [facility] Comment on above: Performed By: #### 2 581908, 5789400, 95433098 #### [facility] [address] [place] [address] Urea nitrogen [Mass/Vol] 12 mg/dL Normal 5-21 [facility] Comment on above: Performed By: #### 2 965508, 7787507, 58771264 #### [facility] [address] [place] [address] Urea nitrogen/Creatinine [Mass ratio] 15 No Units Normal 10-20 [facility] Comment on above: Performed By: #### 2 044880, 3065166, 43969920 #### [facility] [address] [place] [address] Consent for Treatmenton 02-14 Consent for Treatment [id number]#1.00TIFF Normal [facility] Progress Note-Physicianon Progress Note-Physician Patient: JAM QUINTANA MRN: Age: 58 years Sex: Male : 1965 Associated Diagnoses: None Author: MD Zabala Ahmad F Postoperative Information Postoperative disposition: Postoperative disposition: To PACU. Optimetrix number: Optimetrix number [id number]. Anesthetic utilized: General. Health Status Allergies: Allergic [...] meets criteria ( To home ). Normal [facility] Comment on above: Result Comment: [...] Daily, # 10 cap(s), Refills(s) 0, [id number], cm, 10/23/23 13:41:00 EST, Height/Length Dosing, 75.1, kg, 10/23/23 13:41:00 EST, Weight Dosing Humira Pen Crohns/Ulcer Colitis/Hidradenitis Suppurativa Starterr Pack 80 mg/0.8 mL subcutaneous ki...: See Instructions, Inject 160 mg on day one, Inject 80 mg on day 15, # 1 kit(s), Refills(s) 0, Pharmacy: [facility]/pharmacy [facility], 167, cm, 09/04/20 8:15:00 EDT, Height/Length Dosing, 75.8, kg, 09/04/20 8:15:00 EDT, Weight Dosing Zofran ODT 4 mg Tab-Dis: 4 mg = 1 tab(s), Oral, q8hr, PRN Nausea/Vomiting, # 30 tab(s), Refills(s) 0, Pharmacy: [facility], 168, cm, 10/23/23 13:41:00 EST, Height/Length Dosing, 75.1, kg, 10/23/23 13:41:00 EST, Weight Dosing mesalamine 4 g/60 mL rectal enema: = 1 EA, Rectal, Once a day (at bedtime), # 30 EA, Refills(s) 3, Pharmacy: [facility]/pharmacy [facility], 168, cm, 03/23/23 8:23:00 EDT, Height/Length Dosing, 81.1, kg, 03/23/23 8:23:00 EDT, Weight Dosing mesalamine 4 g/60 mL rectal enema: = 1 EA, Rectal, Once a day (at bedtime), # 30 EA, Refills(s) 6, [facility] 168, cm, 10/16/22 13:49:00 EST, Height/Length Dosing, 80.6, kg, 10/16/22 13:49:00 EST, Weight Dosing omeprazole 40 mg Cap-DR: 40 mg = 1 cap(s), Oral, Daily, # 30 cap(s), Refills(s) 11, [facility], 167, cm, 09/04/20 8:15:00 EDT, Height/Length Dosing, 75.8, kg, 09/04/20 8:15:00 EDT, Weight Dosing sulfasalazine 500 mg oral enteric coated tablet: 1,000 mg = 2 tab(s), Oral, QID, X 30 day(s), # 240 tab(s), Refills(s) 11, [facility] 168, cm, 04/01/23 8:58:00 EDT, [...] list: All Problems Hyperlipemia / SNOMED CT 22279071 / Confirmed Rectal bleed / SNOMED CT 084016840 / Confirmed Heartburn / SNOMED CT 51989890 / Confirmed Ulcerative colitis, universal / SNOMED CT 8130025169 / Confirmed Bladder stone / SNOMED CT 997260674 / Confirmed BPH with urinary obstruction / SNOMED CT 8552963490 / Confirmed Incomplete bladder emptying / SNOMED CT 787469857 / Confirmed Gross hematuria / SNOMED CT 094997459 / Confirmed Kidney stones / SNOMED CT 628244950 / Confirmed Bladder mass / SNOMED CT 0042615907 / Confirmed Urethral stone / SNOMED CT 96965823 / Confirmed Prostate calculus / SNOMED CT 196725337 / Confirmed Continuous severe abdominal pain / SNOMED CT 28397660 / Confirmed Hematochezia / SNOMED CT 5597658244 / Confirmed Acute diarrhea / SNOMED CT 3473992707 / Confirmed Freedom ulcerative colitis / SNOMED CT 8484570766 / Confirmed Adenomatous colon polyp / SNOMED CT 6063662584 / Confirmed Resolved: Extreme obesity / SNOMED CT 03R41553-9LR2-97Z6-S369-9 [id number] Resolved: Ulcerative colitis / SNOMED CT 956777912 Canceled: Ulcerative colitis / SNOMED CT 931563598 Histories Past Medical History: Resolved Extreme obesity ([id number]-B287- [id number]): Resolved. Ulcerative colitis (388892711): Resolved. Family History: Procedure history: Colonoscopy (816352579) on 02/26/2024 at 58 Years. Colonoscopy (487177892) on 03/23/2023 at 57 Years. Cystoscopy (75043997) on 02/04/2021 at 55 Years. Colonoscopy (387546257). right hip replacement (097907156). replacement on both knees (391967234). Hernia repair (06668765). Social History Soc (more content not included)... Normal [facility] Comment on above: Result Comment: Elec tronically Signed By: MD Vj, Rigoberto Espinosa\.br\Date and Time Signed: 03/02/24 14:21 EDT eGFRon 03-02-2024 eGFR 101 mL/min/1.73 m2 Normal >=59 [facility] Comment on above: Order Comment: Order added by Discern Expert. Performed By: #### 2 599096, 9079296, 69227002 #### [facility] [address] [place] [address] Consenton 02-29-2024 Consent [id number]#1.00TIFF Normal [facility] Discharge Instructionson Discharge Instructions [id number]#1.00TIFF Normal [facility] Main OR Intraoperative Recor don 02-29-2024 Main OR Intraoperative Record IntraOp Document Type FT Summary Primary Physician: Luis Antonio García MD Finalized Date/Time: 02/29/24 10:32:28 Pt. Name: JAM TOSCANO/Sex: 1965 Male Med Rec #: [id number] Physician: Luis Antonio García MD Financial #: [id number] Pt. Type: O Room/Bed: / Admit/Disch: 02/26/24 [...] 1 Entry 2 Entry 3 Case Attendee Jodry HERNÁNDEZ, Corey García MD, Donna Parker RN Role Performed EDGAR Surgeon - Primary Rv Repairer - Primary Time In 02/26/24 10:07:00 02/26/24 [...] and tissue Entry 1 Skin Integrity Intact, [place], Warm, and Skin Abnormality No Dry Outcomes Met? Yes Last Modified By: Donna Kumar RN 02/26/24 10:16:00 Post-Care Text: The patient is free from signs and symptoms of injury caused by extraneous objects Patient Positioning FT Pre-Care Text: Identifies physical alterations that require additional precautions for proce (more content not included)... [facility] Postoperative Documentson Postoperative Documents [id number]#1.00TIFF [facility] Consent for Treatmenton 02-14 Consent for Treatment [id number]#1.00TIFF Normal [facility] Discharge Instructionson Discharge Instructions JAM TOSCANO :1965 [...] For Persistent or heavy bleeding Pharmacy Information [facility] Discharge Instructions Discharge Instructions New Follow Up Appointments after Discharge Follow Up with Luis Antonio García When: Within 1 to 2 weeks Comments: Call for any problems. Where: [facility], [address] [phone] Business (1) Medications What How Much When [...] (Entyvio 300 mg intravenous injection) See instructions Freedom ulcerative colitis 300 mg/ kg at week [...] Prostate calculus Rectal bleed Ulcerative colitis, universal Freedom ulcerative colitis Urethral stone Historical - Any [...] referred to (more content not included)... Normal [facility] Comment on above: Result Comment: [...] history and physical Documented on chart. Colonoscopy (963619078) on 03/23/2023 at 57 Years. Cystoscopy (82215579) on 02/04/2021 at 55 Years. Colonoscopy (953032058). right hip replacement (405880398). replacement on both knees (894129153). Hernia repair (04263307).. Past Medical History Resolved Extreme obesity ([id number]-Y761- [id number]): Resolved. Ulcerative colitis (548540364): Resolved.. Family History . Procedure History Colonoscopy (419280314) on 03/23/2023 at 57 Years. Cystoscopy (57425340) on 02/04/2021 at 55 Years. Colonoscopy (518366236). right hip replacement (613741920). replacement on both knees (447261519). Hernia repair (64836197).. Colorectal neoplasm risk assessment High risk UC. [...] Daily, # 10 cap(s), Refills(s) 0, Pharmacy: [id number], 168, cm, 10/23/23 13:41:00 EST, Height/Length Dosing, 75.1, kg, 10/23/23 13:41:00 EST, Weight Dosing Humira Pen Crohns/Ulcer Colitis/Hidradenitis Suppurativa Starterr Pack 80 mg/0.8 mL subcutaneous ki...: See Instructions, Inject 160 mg on day one, Inject 80 mg on day 15, # 1 kit(s), Refills(s) 0, Pharmacy: [facility]/pharmacy [facility]6177, 167, cm, 09/04/20 8:15:00 EDT, Height/Length Dosing, 75.8, kg, 09/04/20 8:15:00 EDT, Weight Dosing Zofran ODT 4 mg Tab-Dis: 4 mg = 1 tab(s), Oral, q8hr, PRN Nausea/Vomiting, # 30 tab(s), Refills(s) 0, Pharmacy: [facility]/pharmacy #[id number], 168, cm, 10/23/23 13:41:00 EST, Height/Length Dosing, 75.1, kg, 10/23/23 13:41:00 EST, Weight Dosing mesalamine 4 g/60 mL rectal enema: = 1 EA, Rectal, Once a day (at bedtime), # 30 EA, Refills(s) 3, [id number] 168, cm, 03/23/23 8:23:00 EDT, Height/Length Dosing, 81.1, kg, 03/23/23 8:23:00 EDT, Weight Dosing mesalamine 4 g/60 mL rectal enema: = 1 EA, Rectal, Once a day (at bedtime), # 30 EA, Refills(s) 6, [facility] 168, cm, 10/16/22 13:49:00 EST, Height/Length Dosing, 80.6, kg, 10/16/22 13:49:00 EST, Weight Dosing omeprazole 40 mg Cap-DR: 40 mg = 1 cap(s), Oral, Daily, # 30 cap(s), Refills(s) 11, [facility] 167, cm, 09/04/20 8:15:00 EDT, Height/Length Dosing, 75.8, kg, 09/04/20 8:15:00 EDT, Weight Dosing sulfasalazine 500 mg oral enteric coated tablet: 1,000 mg = 2 tab(s), Oral, QID, X 30 day(s), # 240 tab(s), Refills(s) 11, [facility] 168, cm, 04/01/23 8:58:00 EDT, [...] the col (more content not included)... Normal [facility] Comment on above: Result Comment: Elec tronically Signed By: Luis Antonio García MD\.br\Date and Time Signed: 02/26/24 10:37 EDT Inpatient Patient Summaryon 02-26-2024 Inpatient Patient Summary (Inserted Imag e. Unable to display) [place] [id number] [facility] Clinical Discharge Instructions PERSON INFORMATION Name: JAM [...] every 8 weeks. Refills: 6. Comment: Normal [facility] Main OR PACU I Recordon 02-14 Main OR PACU I Record PACU Phase I Docum ent Type FT Summary Primary Physician: Luis Antonio García MD Finalized Date/Time: 02/26/24 11:54:56 Pt. Name: JAM TOSCANO/Sex: 1965 Male Med Rec #: [id number] Physician: Luis Antonio García MD Financial #: [id number] Pt. Type: O Room/Bed: / Admit/Disch: 02/26/24 [...] By: Lesli May RN 02/26/24 11:54 Normal [facility] Main OR Preoperative Recordo n 02-26-2024 Main OR Preoperative Record Holding Area Document Type FT Summary Primary Physician: Luis Antonio García MD Finalized Date/Time: 02/26/24 08:41:02 Pt. Name: JAM TOSCANO/Sex: 1965 Male Med Rec #: [id number] Physician: Luis Antonio García MD Financial #: [id number] Pt. Type: O Room/Bed: / Admit/Disch: 02/26/24 [...] By: Lauren Rosado RN 02/26/24 08:41 Normal [facility] Monitor Recordon 02-26-2024 Monitor Record [id number] Normal [facility] Monitor Record [id number] Normal [facility] Outpatient Surgery Discharge Instructionon 02-26-2024 Outpatient Surgery Discharge Instruction [place] [id number] Patient Discharge Instructions PERSON INFORMATION Name: JAM [...] to serve you. Thank you for choosing [facility] HERE ARE THE MEDICATION CHANGES THAT [...] 6. PATIENT EDUCATION INFORMATION Instructions: Medication Leaflets: [facility] Patient Education - Texton 0 02-26-2024 [...] unsweetened, w/added ascorbic acid 1 cup 0.5 [place] 1 cup 0.7 Vegetables Cooked Green beans 1 cup 4.0 Carrots 1/2 cup sliced 2.3 Peas 1 cup 8.8 Potato (baked, with skin) 1 medium potato 3.8 Raw [place] (with peel) 1 cucumber 1.5 Lettuce 1 [...] Peanuts 1/2 cup 7.9 [facility] SEEK IMMEDIATE MEDICAL CARE IF: You [...] Information adapted from: ExitCare? Patient Information ?2009 [employer]. [employer] 2012 [email or web address] Colonoscopy Care After Surgery Please read the [...] and progress (more content not included)... Normal [facility] Esau 02-11-2024 CANDIE Telephone (ANGEL) ----- JAM TOSCANO ([id number]) 1965 M Date Time Provider Department 02/11/24 NIDIA WESTON During your visit today, we recorded the following information about you: Nidia Weston, [employer]ORER [employer]UM[employer].MARKETING ASSISTANT [employer] 02/11/2024 2:48 PM Signed Please call patient [...] Abs Lymph 1.00 - 4.00 k/uL 1.84 Galax% % 7.3 Abs Galax <0.87 k/uL 0.59 Eosin% % 0.1 Abs [...] Date Reviewed: 01/12/2024 Reviewed by: Nidia Weston, ADEOLA.MARKETING ASSISTANT [employer] - Fully Assessed Primary Visit Diagnosis:Elevated alkaline phosphatase level [R74.8] Order(s):CONSULT TO HEPATOLOGY [[id number]] Order #: [id number]: 1 FUTURE Prescriptions as of 02/16/2024 - [...] ESTEPHANIA DEVINE on 02/16/[address] [facility] ALKALINE PHOSPHATASE ISOENZY MES (P)on 01-12-2024 ALK PHOS BONE % 16.2 % Normal 10.7-68.[address] [facility] Comment on above: Order Comment: Speci men Type: BLOOD SPECIMENOrdering Facility: [facility] Address: [address] [place] [address] Performed By: #### A LKISOP ####[facility] LABIA [id number] [place] [address] [place] ALK PHOS LIVER % 83.8 % Normal 26.0-86.2 [facility] Comment on above: Order Comment: Latoyai men Type: BLOOD SPECIMENOrdering Facility: [facility] Address: [address] [place] [address] Performed By: #### A LKISOP ####[facility] LABCLIA [id number] [place] [address] [place] BONE FRACTION 34.2 U/L Normal 12.9-52.[address] [facility] Comment on above: Order Comment: Latoyai men Type: BLOOD SPECIMENOrdering Facility: [facility] Address: [address] [place] [address] Performed By: #### A LKISOP ####[facility] LABIA [id number] [place] [address] [place] INTESTINE FRACTION 0.0 U/L Normal 0.0-16.3 [facility] Comment on above: Order Comment: Speci men Type: BLOOD SPECIMENOrdering Facility: [facility] Address: [address] [place] [address] Performed By: #### A LKISOP ####[facility] LABCLIA [id number] [place] [address] [place] LIVER FRACTION 176.8 U/L High 16.0-69.[address] [facility] Comment on above: Order Comment: Speci men Type: BLOOD SPECIMENOrdering Facility: [facility] Address: [address] [place] [address] Performed By: #### A LKISOP ####[facility] LABIA [id number] [place] [address] [place] Neutrophils/100 WBC (Bld) 0.0 % Normal 0.0-24.[address] [facility] Comment on above: Order Comment: Speci men Type: BLOOD SPECIMENOrdering Facility: [facility] Address: [address] [place] [address] Performed By: #### A LKISOP ####[facility] LABIA [id number] [place] [address] [place] ALP SerPl-cCncon 01-12-2024 ALP [Catalytic activity/Vol] 211 U/L High 38-[address] [facility] Comment on above: Order Comment: Speci men Type: BLOOD SPECIMENOrdering Facility: [facility] Address: [address] [place] [address] Performed By: #### 6 768-6, 1988-03 ####[facility] LABIA [id number] [place] [address] [place] CBC W Auto Differential pane l (Bld)on 01-12-2024 Basophils (Bld) [#/Vol] 0.04 10*3/uL Normal <0.[address] [facility] Comment on above: Order Comment: Speci men Type: BLOOD SPECIMENOrdering Facility: [facility] Address: [address] [place] [address] Performed By: #### 4 537-7, 03331-1 ####[facility] LABCLIA [id number] [place] [address] [place] Basophils/100 WBC (Bld) 0.5 % Normal [facility] Comment on above: Order Comment: Speci men Type: BLOOD SPECIMENOrdering Facility: [facility] Address: [address] [place] [address] Performed By: #### 4 537-7, 99138-4 ####[facility] LABCLIA [id number] [place] [address] [place] Differential cell count method Nom (Bld) Auto Normal [facility] Comment on above: Order Comment: Speci men Type: BLOOD SPECIMENOrdering Facility: [facility] Address: [address] [place] [address] Performed By: #### 4 537-7, 86949-2 ####[facility] LABCLIA [id number] [place] [address] [place] Eosinophils (Bld) [#/Vol] 10*3/uL Normal <0.[address] [facility] Comment on above: Order Comment: Speci men Type: BLOOD SPECIMENOrdering Facility: [facility] Address: [address] [place] [address] Performed By: #### 4 537-7, 43707-7 ####[facility] LABCLIA [id number] [place] [address] [place] Eosinophils/100 WBC (Bld) 0.1 % Normal [facility] Comment on above: Order Comment: Speci men Type: BLOOD SPECIMENOrdering Facility: [facility] Address: [address] [place] [address] Performed By: #### 4 537-7, 89294-3 ####[facility] LABCLIA [id number] [place] [address] [place] Erythrocyte distribution width (RBC) [Ratio] 15.0 % Normal 11.5-15.[address] [facility] Comment on above: Order Comment: Speci men Type: BLOOD SPECIMENOrdering Facility: [facility] Address: [address] [place] [address] Performed By: #### 4 537-7, 21914-5 ####[facility] LABCLIA [id number] [place] [address] [place] Hematocrit (Bld) [Volume fraction] 43.6 % Normal 39.0-51.[address] [facility] Comment on above: Order Comment: Speci men Type: BLOOD SPECIMENOrdering Facility: [facility] Address: [address] [place] [address] Performed By: #### 4 537-7, 20178-0 ####[facility] LABIA [id number] [place] [address] [place] Hemoglobin (Bld) [Mass/Vol] 13.9 g/dL Normal 13.0-17.[address] [facility] Comment on above: Order Comment: Speci men Type: BLOOD SPECIMENOrdering Facility: [facility] Address: [address] [place] [address] Performed By: #### 4 537-7, 18964-8 ####[facility] LABIA [id number] [place] [address] [place] Immature granulocytes (Bld) [#/Vol] 10*3/uL Normal <0.[address] [facility] Comment on above: Order Comment: Speci men Type: BLOOD SPECIMENOrdering Facility: [facility] Address: [address] [place] [address] Performed By: #### 4 537-7, 21994-2 ####[facility] LABCLIA [id number] [place] [address] [place] Immature granulocytes/100 WBC (Bld) 0.2 % Normal [facility] Comment on above: Order Comment: Speci men Type: BLOOD SPECIMENOrdering Facility: [facility] Address: [address] [place] [address] Performed By: #### 4 537-7, 03992-4 ####[facility] LABCLIA [id number] [place] [address] [place] Lymphocytes (Bld) [#/Vol] 1.84 10*3/uL Normal 1.00-4.[address] [facility] Comment on above: Order Comment: Speci men Type: BLOOD SPECIMENOrdering Facility: [facility] Address: [address] [place] [address] Performed By: #### 4 537-7, 82534-3 ####[facility] LABCLIA [id number] [place] [address] [place] Lymphocytes/100 WBC (Bld) 22.9 % Normal [facility] Comment on above: Order Comment: Speci men Type: BLOOD SPECIMENOrdering Facility: [facility] Address: [address] [place] [address] Performed By: #### 4 537-7, 46694-1 ####[facility] LABCLIA [id number] [place] [address] [place] MCH (RBC) [Entitic mass] 29.5 pg Normal 26.0-34.[address] [facility] Comment on above: Order Comment: Speci men Type: BLOOD SPECIMENOrdering Facility: [facility] Address: [address] [place] [address] Performed By: #### 4 537-7, 37334-2 ####[facility] LABCLIA [id number] [place] [address] [place] MCHC (RBC) [Mass/Vol] 31.9 g/dL Normal 30.5-36.0 [facility] Comment on above: Order Comment: Speci men Type: BLOOD SPECIMENOrdering Facility: [facility] Address: [address] [place] [address] Performed By: #### 4 537-7, 46072-2 ####[facility] LABCLIA [id number] [place] [address] [place] MCV (RBC) [Entitic vol] 92.6 fL Normal 80.0-100.0 [facility] Comment on above: Order Comment: Speci men Type: BLOOD SPECIMENOrdering Facility: [facility] Address: [address] [place] [address] Performed By: #### 4 537-7, 48537-6 ####[facility] LABCLIA [id number] [place] [address] [place] Monocytes (Bld) [#/Vol] 0.59 10*3/uL Normal <0.[address] [facility] Comment on above: Order Comment: Speci men Type: BLOOD SPECIMENOrdering Facility: [facility] Address: [address] [place] [address] Performed By: #### 4 537-7, 70296-1 ####[facility] LABCLIA [id number] [place] [address] [place] Monocytes/100 WBC (Bld) 7.3 % Normal [facility] Comment on above: Order Comment: Speci men Type: BLOOD SPECIMENOrdering Facility: [facility] Address: [address] [place] [address] Performed By: #### 4 537-7, 53955-5 ####[facility] LABCLIA [id number] [place] [address] [place] Neutrophils (Bld) [#/Vol] 5.55 10*3/uL Normal 1.45-7.[address] [facility] Comment on above: Order Comment: Speci men Type: BLOOD SPECIMENOrdering Facility: [facility] Address: [address] [place] [address] Performed By: #### 4 537-7, 29885-7 ####[facility] LABCLIA [id number] [place] [address] [place] Neutrophils/100 WBC (Bld) 69.0 % Normal [facility] Comment on above: Order Comment: Speci men Type: BLOOD SPECIMENOrdering Facility: [facility] Address: [address] [place] [address] Performed By: #### 4 537-7, 52010-6 ####[facility] LABIA [id number] [place] [address] [place] Nucleated RBC (Bld) [#/Vol] 10*3/uL Normal <0.[address] [facility] Comment on above: Order Comment: Speci men Type: BLOOD SPECIMENOrdering Facility: [facility] Address: [address] [place] [address] Performed By: #### 4 537-7, 48102-9 ####[facility] LABIA [id number] [place] [address] [place] Nucleated RBC/100 WBC (Bld) [Ratio] 0.0 /100 WBC Normal [facility] Comment on above: Order Comment: Speci men Type: BLOOD SPECIMENOrdering Facility: [facility] Address: [address] [place] [address] Performed By: #### 4 537-7, 69202-1 ####[facility] LABIA [id number] [place] [address] [place] Platelet mean volume (Bld) [Entitic vol] 9.4 fL Normal 9.0-12.[address] [facility] Comment on above: Order Comment: Speci men Type: BLOOD SPECIMENOrdering Facility: [facility] Address: [address] [place] [address] Performed By: #### 4 537-7, 82266-7 ####[facility] LABIA [id number] [place] [id number] [place] Platelets (Bld) [#/Vol] 339 10*3/uL Normal 150-[address] [facility] Comment on above: Order Comment: Speci men Type: BLOOD SPECIMENOrdering Facility: [facility] Address: [address] [place] [address] Performed By: #### 4 537-7, 73115-7 ####[facility] LABIA [id number] [place] [address] [place] RBC (Bld) [#/Vol] 4.71 10*6/uL Normal 4.20-6.00 [facility] Comment on above: Order Comment: Speci men Type: BLOOD SPECIMENOrdering Facility: [facility] Address: [address] [place] [address] Performed By: #### 4 537-7, 59843-0 ####[facility] [id number] [place] [address] [place] WBC (Bld) [#/Vol] 8.05 10*3/uL Normal 3.70-11.00 [facility] Comment on above: Order Comment: Speci men Type: BLOOD SPECIMENOrdering Facility: [facility] Address: [address] [place] [address] Performed By: #### 4 537-7, 69609-0 ####[facility] LABIA [id number] [place] [id number] [place] CNOVon 01-12-2024 CNOV Office Visit (ANGEL ) ----- JAM TOSCANO ([id number]) 1965 M Date Time Provider Department 01/12/24 10:30 AM NIDIA WESTON During your visit today, we recorded the following information about you: Pulse Blood pressure Weight 95/minute 132/88 74.7 kg Nidia Weston APRN.[employer]ETING ASSIST[employer] 02/14/2024 11:31 PM Signed Follow up Jam Toscano is a very nice 58 year old male seen for Rheumatoid Arthritis and Osteoporosis Subjective: Patient reports: Low iron- following with Dr. Lomeli Has not been taking iron consistently Following with GI - Dr. Salmon in [place] Has scope scheduled February 25 Last visit [...] work or invasive procedures No dental concerns [facility] [phone] No serious infections or fevers Stopped celebrex [...] (more content not included)... Normal [facility] CRP SerPl-ncon 01-12-2024 CRP [Mass/Vol] 0.4 mg/dL Normal <0.[address] [facility] Comment on above: Order Comment: Quinn felder Type: BLOOD SPECIMENOrdering Facility: [facility] Address: [address] [place] [address] Performed By: #### 6 768-6, 1988-03 ####[facility] LABCLIA [id number] [place] [address] [place] ESR Westergren method (Bld) [Velocity]on 01-12-2024 ESR (Bld) [Velocity] 34 mm/h High 0-15 [facility] Comment on above: Order Comment: Quinn felder Type: BLOOD SPECIMENOrdering Facility: [facility] Address: [address] [place] [address] Performed By: #### 4 537-7, 29508-3 ####[facility] LABCLIA [id number] [place] [address] [place] Consent for Procedure/Surger yon 12-14-2023 Consent for Procedure/Surgery [id number]#1.00TIFF Normal [facility] Ambulatory Visit Summaryon 0 12-11-2023 Ambulatory Visit Summary JAM TOSCANO :1965 Visit Date:12/11/2023 Ambulatory Visit Instructions Your Diagnosis Freedom ulcerative colitis Adenomatous colon polyp Your Care [...] (Entyvio 300 mg intravenous injection) See instructions Freedom ulcerative colitis 300 mg/ kg at week [...] Prostate calculus Rectal bleed Ulcerative colitis, universal Freedom ulcerative colitis Urethral stone Historical - Any [...] BIOPSY: ? COLONIC MUCOSA WITHIN NORMAL LIMITS. [facility] ER 10/23/23 for c/o abdominal pain d/c diagnosis of Kidney stones, CT and labs completed. [facility] ER 11/04/23 for c/o nausea and diarrah [...] 87.3 fL (11/27/23) Chloride: 105 mmol/L (11/27/23) [place] Absolute: 0.9 E9/L (11/27/23) CO2: 24 mmol/L (11/27/23) [place] Auto: 9.3 % (11/27/23) Creatinine: 0.7 mg/dL [...] WT: 165.88 lb BMI: 26.71 Assessment/Plan 1. Freedom ulcerative colitis (K51.00: Ulcerative (chronic) pancolitis without [...] 2018. W (more content not included)... Normal [facility] Comment on above: Result Comment: Elec tronically Signed By: Ricky ROBLERO, Luis Antonio Tiwari\.br\Date and Time Signed: 12/11/23 10:32 EST Esau 12-03-2023 CNPN Telephone (ANGEL) ----- RIMMAJAM ([id number]) 1965 M Date Time Provider Department 12/03/23 NIDIA WESTON During your visit today, we recorded the following information about you: Nidia Weston, [employer].MARKETING ASSISTANT [employer] 12/03/2023 12:08 AM Signed Please call patient [...] Abs Lymph 1.00 - 4.00 k/uL 2.11 [place]% % 7.6 Abs [place] <0.87 k/uL 0.82 Eosin% % 0.1 Abs [...] Date Reviewed: 12/01/2023 Reviewed by: Nidia Weston APRN.MARKETING ASSISTANT [employer] - Fully Assessed Reason for Visit: Results [95] Primary Visit Diagnosis:Rheumatoid arthritis 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) [M05.79] Order(s):CBC + DIFF [SQCBCDIF] Order #: [id number] FUTURE C-REACTIVE PROTEIN (CRP) [SQCRP] Order #: [id number] FUTURE SED RATE WESTERGREN [SQWSR] Order #: [id number] FUTURE ALK PHOS ISOENZYM BL [SQALKISO] Order #: [id number] FUTURE Prescriptions as of 12/03/2023 - celecoxib [...] (more content not included)... Normal [facility] 25(OH)D3 SerPl-mCncon 2023 25-hydroxyvitamin D3 [Mass/Vol] 63.0 ng/mL Normal 31.0-80.[address] [facility] Comment on above: Order Comment: Quinn felder Type: BLOOD SPECIMENOrdering Facility: [facility] Address: [address] [place] [address] Result Comment: Clas sification of 25 OH Vitamin D status: Deficiency/Insufficiency: < or = 30 ng/ml. Sufficiency/Optimal Levels: 31-80 ng/mL Toxicity: > 100 ng/mL. Test performed by chemiluminescent immunoassay. Performed By: #### 1 989-3 ####[facility] [id number] [address] [place] [facility] BLOOD TB SCREENon 12-01-2023 M. tuberculosis tuberculin stim IFN-g Ql (Bld) Negative Normal [facility] Comment on above: Order Comment: Quinn [facility] Type: BLOOD SPECIMENOrdering Facility: [facility] Address: [address] [place] [address] Performed By: #### I NFTBP ####[facility] [id number] [place] [address] [place] MITOGEN MINUS NIL 3.58 IU/mL Normal >=0.50 [facility] Comment on above: Order Comment: Quinn [facility] Type: BLOOD SPECIMENOrdering Facility: [facility] Address: [address] [place] [address] Performed By: #### I NFTBP ####[facility] [id number] [address] [place] [facility] TB GAMMA INTERPRETATION Infection with M . tuberculosis complex is unlikely. If latent tuberculosis infection is highly suspected, a negative result does not rule out the infection. Specimens from immunocompromised patients and those <5 years of age may show false negative results. In case of a contact investigation, please repeat 8-12 weeks after a known exposure. Normal [facility] Comment on above: Order Comment: Speci men Type: BLOOD SPECIMENOrdering Facility: [facility] Address: [address] [place] [address] Performed By: #### I NFTBP ####[facility] LABCLIA [id number] [place] [address] [place] TB NIL 0.04 IU/mL Normal <=8.[address] [facility] Comment on above: Order Comment: Speci men Type: BLOOD SPECIMENOrdering Facility: [facility] Address: [address] [place] [address] Performed By: #### I NFTBP ####[facility] LABCLIA [id number] [place] [address] [place] TB1 AG MINUS NIL 0.00 IU/mL Normal <0.35 [facility] Comment on above: Order Comment: Speci men Type: BLOOD SPECIMENOrdering Facility: [facility] Address: [address] [place] [address] Performed By: #### I NFTBP ####[facility] LABCLIA [id number] [place] [address] [place] TB2 AG MINUS NIL 0.02 IU/mL Normal <0.35 [facility] Comment on above: Order Comment: Speci men Type: BLOOD SPECIMENOrdering Facility: [facility] Address: [address] [place] [address] Performed By: #### I NFTBP ####[facility] LABIA [id number] [place] [address] [place] CBC W Auto Differential pane l (Bld)on 12-01-2023 Basophils (Bld) [#/Vol] 0.05 10*3/uL Normal <0.[address] [facility] Comment on above: Order Comment: Speci men Type: BLOOD SPECIMENOrdering Facility: [facility] Address: [address] [place], [place] [address] Performed By: #### 5 7021-8, 4536-7 ####[facility] LABCLIA [id number] [place] [address] [place] Basophils/100 WBC (Bld) 0.5 % Normal [facility] Comment on above: Order Comment: Speci men Type: BLOOD SPECIMENOrdering Facility: [facility] Address: [address] [place] [address] Performed By: #### 5 7021-8, 4536-7 ####[facility] LABCLIA [id number] [place] [address] [place] Differential cell count method Nom (Bld) Auto Normal [facility] Comment on above: Order Comment: Speci men Type: BLOOD SPECIMENOrdering Facility: [facility] Address: [address] [place] [address] Performed By: #### 5 7021-8, 7 ####[facility] LABCLIA [id number] [place] [address] [place] Eosinophils (Bld) [#/Vol] 10*3/uL Normal <0.[address] [facility] Comment on above: Order Comment: Speci men Type: BLOOD SPECIMENOrdering Facility: [facility] Address: [address] [place] [address] Performed By: #### 5 7021-8, 7 ####[facility] LABCLIA [id number] [place] [address] [place] Eosinophils/100 WBC (Bld) 0.1 % Normal [facility] Comment on above: Order Comment: Speci men Type: BLOOD SPECIMENOrdering Facility: [facility] Address: [address] [place] [address] Performed By: #### 5 7021-8, 4536-7 ####[facility] LABCLIA [id number] [place] [address] [place] Erythrocyte distribution width (RBC) [Ratio] 13.1 % Normal 11.5-15.[address] [facility] Comment on above: Order Comment: Speci men Type: BLOOD SPECIMENOrdering Facility: [facility] Address: [address] [place] [address] Performed By: #### 5 7021-8, 7 ####[facility] LABCLIA [id number] [place] [address] [place] Hematocrit (Bld) [Volume fraction] 36.8 % Low 39.0-51.[address] [facility] Comment on above: Order Comment: Speci men Type: BLOOD SPECIMENOrdering Facility: [facility] Address: [address] [place] [address] Performed By: #### 5 7021-8, 7 ####[facility] LABCLIA [id number] [place] [address] [place] Hemoglobin (Bld) [Mass/Vol] 11.6 g/dL Low 13.0-17.[address] [facility] Comment on above: Order Comment: Speci men Type: BLOOD SPECIMENOrdering Facility: [facility] Address: [address] [place] [address] Performed By: #### 5 7021-8, 7 ####[facility] LABCLIA [id number] [place] [address] [place] Immature granulocytes (Bld) [#/Vol] 10*3/uL Normal <0.[address] [facility] Comment on above: Order Comment: Speci men Type: BLOOD SPECIMENOrdering Facility: [facility] Address: [address] [place] [address] Performed By: #### 5 7021-8, 7 ####[facility] LABCLIA [id number] [place] [address] [place] Immature granulocytes/100 WBC (Bld) 0.2 % Normal [facility] Comment on above: Order Comment: Speci men Type: BLOOD SPECIMENOrdering Facility: [facility] Address: [address] [place] [address] Performed By: #### 5 7021-8, 4537-7 ####[facility] LABCLIA [id number] [place] [address] [place] Lymphocytes (Bld) [#/Vol] 2.11 10*3/uL Normal 1.00-4.[address] [facility] Comment on above: Order Comment: Speci men Type: BLOOD SPECIMENOrdering Facility: [facility] Address: [address] [place] [address] Performed By: #### 5 7021-8, 4536-7 ####[facility] LABCLIA [id number] [place] [address] [place] Lymphocytes/100 WBC (Bld) 19.5 % Normal [facility] Comment on above: Order Comment: Speci men Type: BLOOD SPECIMENOrdering Facility: [facility] Address: [address] [place] [address] Performed By: #### 5 7021-8, 4536-7 ####[facility] LABCLIA [id number] [place] [address] [place] MCH (RBC) [Entitic mass] 29.1 pg Normal 26.0-34.[address] [facility] Comment on above: Order Comment: Speci men Type: BLOOD SPECIMENOrdering Facility: [facility] Address: [address] [place] [address] Performed By: #### 5 7021-8, 7-7 ####[facility] LABCLIA [id number] [place] [address] [place] MCHC (RBC) [Mass/Vol] 31.5 g/dL Normal 30.5-36.0 [facility] Comment on above: Order Comment: Speci men Type: BLOOD SPECIMENOrdering Facility: [facility] Address: [address] [place] [address] Performed By: #### 5 7021-8, 7-7 ####[facility] LABCLIA [id number] [place] [address] [place] MCV (RBC) [Entitic vol] 92.2 fL Normal 80.0-100.0 [facility] Comment on above: Order Comment: Speci men Type: BLOOD SPECIMENOrdering Facility: [facility] Address: [address] [place] [address] Performed By: #### 5 7021-8, 4536-7 ####[facility] LABCLIA [id number] [place] [address] [place] Monocytes (Bld) [#/Vol] 0.82 10*3/uL Normal <0.[address] [facility] Comment on above: Order Comment: Speci men Type: BLOOD SPECIMENOrdering Facility: [facility] Address: [address] [place] [address] Performed By: #### 5 7021-8, 4536-7 ####[facility] LABCLIA [id number] [place] [address] [place] Monocytes/100 WBC (Bld) 7.6 % Normal [facility] Comment on above: Order Comment: Speci men Type: BLOOD SPECIMENOrdering Facility: [facility] Address: [address] [place] [address] Performed By: #### 5 7021-8, 4536-7 ####[facility] LABCLIA [id number] [place] [address] [place] Neutrophils (Bld) [#/Vol] 7.83 10*3/uL High 1.45-7.[address] [facility] Comment on above: Order Comment: Speci men Type: BLOOD SPECIMENOrdering Facility: [facility] Address: [address] [place] [address] Performed By: #### 5 7021-8, 7-7 ####[facility] LABCLIA [id number] [place] [address] [place] Neutrophils/100 WBC (Bld) 72.1 % Normal [facility] Comment on above: Order Comment: Speci men Type: BLOOD SPECIMENOrdering Facility: [facility] Address: [address] [place] [address] Performed By: #### 5 7021-8, 4537-7 ####[facility] LABCLIA [id number] [place] [address] [place] Nucleated RBC (Bld) [#/Vol] 10*3/uL Normal <0.[address] [facility] Comment on above: Order Comment: Speci men Type: BLOOD SPECIMENOrdering Facility: [facility] Address: [address] [place] [address] Performed By: #### 5 7021-8, 4537-7 ####[facility] LABCLIA [id number] [place] [address] [place] Nucleated RBC/100 WBC (Bld) [Ratio] 0.0 /100 WBC Normal [facility] Comment on above: Order Comment: Speci men Type: BLOOD SPECIMENOrdering Facility: [facility] Address: [address] [place] [address] Performed By: #### 5 7021-8, 4537-7 ####[facility] LABCLIA [id number] [place] [address] [place] Platelet mean volume (Bld) [Entitic vol] 9.2 fL Normal 9.0-12.[address] [facility] Comment on above: Order Comment: Speci men Type: BLOOD SPECIMENOrdering Facility: [facility] Address: [address] [place] [address] Performed By: #### 5 7021-8, 4537-7 ####[facility] LABCLIA [id number] [place] [address] [place] Platelets (Bld) [#/Vol] 497 10*3/uL High 150-[address] [facility] Comment on above: Order Comment: Speci men Type: BLOOD SPECIMENOrdering Facility: [facility] Address: [place] [address] Performed By: #### 5 7021-8, 4537-7 ####[facility] LABCLIA [id number] [place] [address] [place] RBC (Bld) [#/Vol] 3.99 10*6/uL Low 4.20-6.00 [facility] Comment on above: Order Comment: Speci men Type: BLOOD SPECIMENOrdering Facility: [facility] Address: [place] [address] Performed By: #### 5 7021-8, 4537-7 ####[facility] LABCLIA [id number] [place] [address] [place] WBC (Bld) [#/Vol] 10.84 10*3/uL Normal 3.70-11.00 [facility] Comment on above: Order Comment: Speci men Type: BLOOD SPECIMENOrdering Facility: [facility] Address: [place] [address] Performed By: #### 5 7021-8, 4537-7 ####[facility] LABCLIA [id number] [place] [address] [place] CNOVon 12-01-2023 CNOV Office Visit (ANGEL ) ----- JAM TOSCANO ([id number]) 1965 Griselda Date Time Provider Department 12/01/23 3:30 PM NIDIA WESTON During your visit today, we recorded the following information about you: Pulse Blood pressure Weight 92/minute 122/76 72.8 kg Nidia Weston, [employer] 01/11/2024 11:15 PM Signed Follow up Telephone [...] rom shoulders. Left elbow. No dental concerns [facility] dental [phone] GI - colitis- has been calm SSZ [...] (more content not included)... Normal [facility] CRP SerPl-mCncon 12-01-2023 CRP [Mass/Vol] 3.9 mg/dL High <0.[address] [facility] Comment on above: Order Comment: Speci men Type: BLOOD SPECIMENOrdering Facility: [facility] Address: [address] [place] [address] Performed By: #### 2 4323-06, 1988-03 ####[facility] LABCLIA [id number] [place] [address] [place] Comprehensive metabolic 2000 panelon 12-01-2023 Albumin [Mass/Vol] 3.9 g/dL Normal 3.9-4.9 [facility] Comment on above: Order Comment: Speci men Type: BLOOD SPECIMENOrdering Facility: [facility] Address: [address] [place] [address] Performed By: #### 2 4323-06, 1988-03 ####[facility] LABCLIA [id number] [place] [address] [place] ALP [Catalytic activity/Vol] 171 U/L High 38-[address] [facility] Comment on above: Order Comment: Speci men Type: BLOOD SPECIMENOrdering Facility: [facility] Address: [address] [place] [id number] Performed By: #### 2 4323-06, 1988-03 ####[facility] LABCLIA [id number] [address] [address] [place] ALT [Catalytic activity/Vol] 22 U/L Normal 10-[address] [facility] Comment on above: Order Comment: Speci men Type: BLOOD SPECIMENOrdering Facility: [facility] Address: [address] [place] [address] Performed By: #### 2 4323-06, 1988-03 ####[facility] LABCLIA [id number] [place] [id number] [place] Anion gap [Moles/Vol] 12 mmol/L Normal 9-18 [facility] Comment on above: Order Comment: Speci men Type: BLOOD SPECIMENOrdering Facility: [facility] Address: [address] [place] [address] Performed By: #### 2 43201-21, 1988-03 ####[facility] LABCLIA [id number] [place] [address] [place] AST [Catalytic activity/Vol] 31 U/L Normal 14-[address] [facility] Comment on above: Order Comment: Speci men Type: BLOOD SPECIMENOrdering Facility: [facility] Address: [address] [place] [address] Performed By: #### 2 43201-21, 1988-03 ####[facility] LABCLIA [id number] [place] [address] [place] Bilirubin [Mass/Vol] 0.3 mg/dL Normal 0.2-1.3 [facility] Comment on above: Order Comment: Speci men Type: BLOOD SPECIMENOrdering Facility: [facility] Address: [address] [place] [address] Performed By: #### 2 43201-21, 1988-03 ####[facility] LABCLIA [id number] [place] [address] [place] Calcium [Mass/Vol] 10.2 mg/dL Normal 8.5-10.2 [facility] Comment on above: Order Comment: Speci men Type: BLOOD SPECIMENOrdering Facility: [facility] Address: [address] [place] [address] Performed By: #### 2 43201-21, 1988-03 ####[facility] LABCLIA [id number] [place] [address] [place] Chloride [Moles/Vol] 106 mmol/L High 97-105 [facility] Comment on above: Order Comment: Speci men Type: BLOOD SPECIMENOrdering Facility: [facility] Address: [address] [place] [address] Performed By: #### 2 43201-21, 1988-03 ####[facility] LABIA [id number] [address] [address] [place] CO2 [Moles/Vol] 25 mmol/L Normal 22-[address] [facility] Comment on above: Order Comment: Speci men Type: BLOOD SPECIMENOrdering Facility: [facility] Address: [address] [place] [address] Performed By: #### 2 4323-06, 1988-03 ####[facility] LABIA [id number] [place] [address] [place] Creatinine [Mass/Vol] 0.92 mg/dL Normal 0.73-1.22 [facility] Comment on above: Order Comment: Speci men Type: BLOOD SPECIMENOrdering Facility: [facility] Address: [address] [place] [address] Performed By: #### 2 4323-06, 1988-03 ####[facility] LABIA [id number] [place] [address] [place] Creatinine and Glomerular filtration rate.predicted panel (S/P/Bld) 96 mL/min/1.73m??? Normal >=[address] [facility] Comment on above: Order Comment: Speci men Type: BLOOD SPECIMENOrdering Facility: [facility] Address: [address] [place] [address] Result Comment: Fauzia mated Glomerular Filtration Rate [...] Performed By: #### 2 43201-21, 1988-03 ####[facility] LABCLIA [id number] [address] [address] [place] Glucose [Mass/Vol] 101 mg/dL High 74-99 [facility] Comment on above: Order Comment: Speci men Type: BLOOD SPECIMENOrdering Facility: [facility] Address: [address] [place] [address] Result Comment: The [place] [employer] (ADA) provides guidance for cutoff [...] Standards of Medical Care in Diabetes 2016, [place] [employer]. Diabetes Care. 2016.39(Suppl 1). Performed By: #### 2 43201-21, 1988-03 ####[facility] LABCLIA [id number] [place] [id number] [place] Potassium [Moles/Vol] 4.1 mmol/L Normal 3.7-5.1 [facility] Comment on above: Order Comment: Speci men Type: BLOOD SPECIMENOrdering Facility: [facility] Address: [address] [place] [id number] Performed By: #### 2 4323-06, 1988-03 ####[facility] LABCLIA [id number] [address] [address] [place] Protein [Mass/Vol] 8.0 g/dL Normal 6.3-8.0 [facility] Comment on above: Order Comment: Speci men Type: BLOOD SPECIMENOrdering Facility: [facility] Address: [address] [place] [address] Performed By: #### 2 4323-06, 1988-03 ####[facility] LABCLIA [id number] [place] [address] [place] Sodium [Moles/Vol] 143 mmol/L Normal 136-144 [facility] Comment on above: Order Comment: Speci men Type: BLOOD SPECIMENOrdering Facility: [facility] Address: [address] [place] [address] Performed By: #### 2 4323-8, 1988-03 ####[facility] LABIA [id number] [place] [address] [place] Urea nitrogen [Mass/Vol] 19 mg/dL Normal 9-[address] [facility] Comment on above: Order Comment: Speci men Type: BLOOD SPECIMENOrdering Facility: [facility] Address: [address] [place] [address] Performed By: #### 2 4323-8, 1988-03 ####[facility] LABIA [id number] [place] [address] [place] ESR Westergren method (Bld) [Velocity]on 12-01-2023 ESR (Bld) [Velocity] 114 mm/h High 0-15 [facility] Comment on above: Order Comment: Latoyai men Type: BLOOD SPECIMENOrdering Facility: [facility] Address: [address] [place] [address] Performed By: #### 5 7021-8, 4537-7 ####[facility] LABIA [id number] [place] [address] [place] HBV core Ab Ser Qlon 024 HBV core Ab Ql (S) Negative Normal Negative [facility] Comment on above: Order Comment: Speci men Type: BLOOD SPECIMENOrdering Facility: [facility] Address: [address] [place] [address] Result Comment: No e vidence of current or past infection with Hepatitis B virus. Should recent infection be suspected, repeat testing may be considered 3-4 weeks after this draw. Performed By: #### 1 6933-4, 5-3, 28402-9 ####[facility] LABCLIA [id number] [place] [address] [place] HBV surface Ab Ql (S)on 11-16 HBV surface Ab Qn (S) <8.00 Normal [facility] Comment on above: Order Comment: Speci men Type: BLOOD SPECIMENOrdering Facility: [facility] Address: [address] [place] [address] Result Comment: <8 m IU/mL: No serological evidence of immunity to Hepatitis B Virus. >/= 8 to <12 mIU/mL: No serological evidence of immunity to Hepatitis B Virus. >/= 12 mIU/mL: Consistent with serological evidence of immunity to Hepatitis B Virus. Performed By: #### 1 6933-4, 3, ####[facility] LABIA [id number] [address] [place] HBV surface Ab Ser Qlon 11-16 HBV surface Ab Ql (S) Negative Normal [facility] Comment on above: Order Comment: Speci men Type: BLOOD SPECIMENOrdering Facility: [facility] Address: [address] [place] [address] Result Comment: No s erological evidence of immunity to Hepatitis B Virus. Performed By: #### 1 6933-4, 5194-3, 25252-9 ####[facility] LABCLIA [id number] [place] [address] [place] HBV surface Ag Ser Qlon 11-16 HBV surface Ag Ql (S) Negative Normal Negative [facility] Comment on above: Order Comment: Speci men Type: BLOOD SPECIMENOrdering Facility: [facility] Address: [address] [place] [address] Performed By: #### 1 6933-4, 5195-3, 21519-7 ####[facility] LABCLIA [id number] [address] [place] HCV Ab Ser Qlon 12-01-2023 HCV Ab Ql (S) Negative Normal Negative [facility] Comment on above: Order Comment: Speci men Type: BLOOD SPECIMENOrdering Facility: [facility] Address: [address] [place] [address] Result Comment: The result suggests no evidence of active infection with Hepatitis C virus. Should recent infection be suspected, repeat testing may be considered 4-6 weeks after this draw. Performed By: #### 1 6128-1 ####[facility] LABCLIA [id number] [facility] [address] [id number] [facility] ED Note-Physicianon 11-28-19 24 ED Note-Physician Basic [...] for 3 day(s), 15 tab(s), Refill(s) 0, [facility]/pharmacy #[id number], 168, cm, 11/27/23 10:26:00 EST, Height/Length Dosing, 73.8, kg, 11/27/23 10:26:00 EST, Weight Dosing Orders: methocarbamol, 1,500 mg = 2 tab(s), Oral, TID, X 3 day(s), # 18 tab(s), Refills(s) 0, Pharmacy: [facility]/pharmacy #[id number], 168, cm, 11/27/23 10:26:00 EST, [...] [place] In 3 days 11/30/2023 EST [address] [facility] [place] [address] [place] [address]- Business (1) Additional Instructions: Patient Education Rheumatoid Arthritis Attestation Patient seen and evaluated by the physician warehouse administrative assistant. Attending physician was present in the emergency department and supervised care. This visit was performed by both the physician and an APC. I performed all aspects of the MDM as documented. This report was transcribed using voice recognition software. Every effort was made to ensure accuracy, however, inadvertently computerized memorial designer mistakes may be present. Appropriate healthcare PPE [...] Prostate calculus Rectal bleed Ulcerative colitis, universal Freedom ulcerative colitis Urethral stone Historical Extreme obesity Ulcerative colitis Procedure/Surgical History Colonoscopy (03/23/2023), Cystoscopy (02/04/2021), Colonoscopy, Hernia repair, Procedure on hip, Procedure on knee. Medicatio (more content not included)... Normal [facility] Comment on above: Result Comment: Elec tronically Signed By: Juancarlos Josue PA-C\.br\Date and Time Signed: 11/27/23 18:42 EST\.br\Electronically Co-Signed By: Kavon Johnson DO\.br\Date and Time Co-Signed: 11/28/23 17:15 EST Auto Diffon 11-27-2023 Basophils/100 WBC (Bld) 0.7 % Normal 0.0-2.0 [facility] Comment on above: Order Comment: Order Added by Discern Expert. Performed By: #### 2 272685, 2411660, [id number], [id number] ####[facility] [id number] [place] [address] Basophils/Leukocytes Auto (Bld) [Pure # fraction] 0.1 E9/L Normal 0.0-0.2 [facility] Comment on above: Order Comment: Order Added by Discern Expert. Performed By: #### 2 592815, 2030010, [id number], 1945197 ####[place] [address] [place] [address] Eosinophils/100 WBC (Bld) 0.0 % Normal 0.0-8.0 [facility] Comment on above: Order Comment: Order Added by Discern Expert. Performed By: #### 2 275050, 3008861, [id number], 6090191 ####[place] [address] [place] [address] Eosinophils/Leukocytes Auto (Bld) [Pure # fraction] 0.0 E9/L Normal 0.0-0.5 [facility] Comment on above: Order Comment: Order Added by Discern Expert. Performed By: #### 2 449891, 3017881, [id number], 5767615 ####[address] [address] Lymphocytes/100 WBC (Bld) 18.8 % Normal 14.0-50.0 [facility] Comment on above: Order Comment: Order Added by Discern Expert. Performed By: #### 2 437693, 3604505, 35445029, 7610013 ####[address] [address] Lymphocytes/Leukocytes Auto (Bld) [Pure # fraction] 1.8 E9/L Normal 1.0-4.0 [facility] Comment on above: Order Comment: Order Added by Discern Expert. Performed By: #### 2 004851, 0620070, 36120828, [id number] ####[address] [address] Monocytes/100 WBC (Bld) 9.3 % Normal 4.0-14.0 [facility] Comment on above: Order Comment: Order Added by Discern Expert. Performed By: #### 2 980542, 8458105, 23276663, 5745093 ####[address] [address] Monocytes/Leukocytes Auto (Bld) [Pure # fraction] 0.9 E9/L Normal 0.2-1.0 [facility] Comment on above: Order Comment: Order Added by Discern Expert. Performed By: #### 2 446677, 7502461, 25127594, 2358309 ####[facility] [id number] [place] [address] Neutrophils/100 WBC (Bld) 71.2 % Normal 36.0-75.0 [facility] Comment on above: Order Comment: Order Added by Discern Expert. Performed By: #### 2 428877, 7100224, 71732793, [id number] ####[facility] [id number] [place] [address] Neutrophils/Leukocytes Auto (Bld) [Pure # fraction] 6.9 E9/L Normal 2.0-7.5 [facility] Comment on above: Order Comment: Order Added by Discern Expert. Performed By: #### 2 373538, 8971073, 93116428, 3172225 ####[facility] [address] [place] [address] BMPon 11-27-2023 Anion gap [Moles/Vol] 13 mmol/L Normal 6-16 [facility] Comment on above: Performed By: #### 2 689854, 4292350, 01681850, 5032733 ####[facility] [address] [place] [address] BUN/Creat Ratio 21 No Units High 10-20 [facility] Comment on above: Performed By: #### 2 488008, 5073601, 75335760, 2112310 ####[facility] [address] [place] [address] Calcium [Mass/Vol] 9.2 mg/dL Normal 8.9-11.1 [facility] Comment on above: Performed By: #### 2 773309, 4659657, 68874013, 5018028 ####[facility] [address] [place] [address] Chloride [Moles/Vol] 105 mmol/L Normal 101-111 [facility] Comment on above: Performed By: #### 2 389469, 0956201, 25402953, 0534650 ####[facility] [address]wr[address] [place] [address] CO2 [Moles/Vol] 24 mmol/L Normal 21-31 [facility] Comment on above: Performed By: #### 2 284579, 0287157, 21585080, 2292837 ####[facility] [address] [place] [address] Creatinine [Mass/Vol] 0.7 mg/dL Normal 0.5-1.3 [facility] Comment on above: Performed By: #### 2 752799, 9380135, 86972299, 7913135 ####[facility] [address] [place] [address] Glucose [Mass/Vol] 121 mg/dL Normal 55-199 [facility] Comment on above: Performed By: #### 2 024876, 4030531, 73253718, 1742994 ####[facility] [address] [place] [address] Potassium [Moles/Vol] 3.9 mmol/L Normal 3.5-5.3 [facility] Comment on above: Performed By: #### 2 479199, 1087176, 37061690, 0397328 ####[facility] [address] [place] [address] Sodium [Moles/Vol] 138 mmol/L Normal 135-145 [facility] Comment on above: Performed By: #### 2 411514, 2444080, 16514762, 2521113 ####[facility] [address] [place] [address] Urea nitrogen [Mass/Vol] 15 mg/dL Normal 5-21 [facility] Comment on above: Performed By: #### 2 862439, 9488241, 57784384, 3469420 ####[facility] [address] [place] [address] CBC w/ Auto Diffon 4 Erythrocyte distribution width (RBC) [Ratio] 14.0 % Normal 10.9-14.2 [facility] Comment on above: Performed By: #### 2 087305, 3662236, 03441191, 4054297 ####[place] [address] [place] [address] Hematocrit (Bld) [Volume fraction] 35.0 % Low 37.7-49.0 [facility] Comment on above: Performed By: #### 2 506355, 7425743, 36833474, 2902674 ####[facility] [address] [place], [place] [address] Hemoglobin (Bld) [Mass/Vol] 11.7 g/dL Low 13.5-17.5 [facility] Comment on above: Performed By: #### 2 026485, 4451979, 68199414, 8778994 ####[place] [address]57 MCH (RBC) [Entitic mass] 29.1 pg Normal 27.0-34.0 [facility] Comment on above: Performed By: #### 2 442589, 7477016, 51642090, 9340869 ####[place] [address]57 MCHC (RBC) [Mass/Vol] 33.3 g/dL Normal 31.4-36.0 [facility] Comment on above: Performed By: #### 2 552259, 3615978, 97942001, 2818443 ####[address] [address] MCV (RBC) [Entitic vol] 87.3 fL Normal 80.0-100.0 [facility] Comment on above: Performed By: #### 2 989443, 2609861, 16394618, 2283593 ####[facility] [address] [place] [address] Platelet mean volume (Bld) [Entitic vol] 6.3 fL Low 6.4-10.8 [facility] Comment on above: Performed By: #### 2 828498, 9532002, 76034124, 4178964 ####[facility] [address] [place] [address] Platelets (Bld) [#/Vol] 462.0 E9/L Normal 150. 0-500. 0 [facility] Comment on above: Performed By: #### 2 236714, 9953426, 84505466, 9662304 ####[facility] [address] [place] [address] RBC (Bld) [#/Vol] 4.0 E12/L Low 4.3-5.9 [facility] Comment on above: Performed By: #### 2 551595, 4905145, 07523658, 0151537 ####[facility] [address] [place] [address] WBC corrected for nucl RBC Auto (Bld) [#/Vol] 9.7 E9/L Normal 4.0-11.0 [facility] Comment on above: Performed By: #### 2 406258, 5300410, 66926870, 5442391 ####[place] [address] [place] [address] Consent for Treatmenton 11-16 Consent for Treatment [id number] Normal [facility] Discharge Instructionson Discharge Instructions [id number] Normal [facility] ED Clinical Summaryon 2023 ED Clinical Summary (Inserted Image. Perla ble to display) [address] [address] ED Clinical Summary Person Information Name: JAM TOSCANO [facility] Age: 58 Years : 1965 Sex: Male Language: Macedonian PCP: Jose L Lackey MD Marital Status: [...] 11/27/2023 12:48:44 11/27/2023 12:48:44 11/27/2023 12:48:44 ADDRESS: [address] [place] [address] [facility] [id number] PHYS DOC NOTES: MEDICAL INFORMATION: Prescriptions Given: New Medications [id number], [address], [place] [id number], [phone] acetaminophen-oxycodone (Percocet 5 mg-325 mg oral tablet) [...] up: With: Address: When: Jose L Lackey [address] [place] [address], [facility] [place] [address] Business (1) In 3 days 11/30/2023 DIAGNOSIS: Joint pain; Rheumatoid arthritis Normal [facility] ED Patient Education Noteon 11-27-2023 ED [...] in your joints. General instructions ? Take dqej-oyz-ukylvld and prescription medicines only as told by your health care provider. ? Keep all follow-up visits. This is important. Where to find more information ? [employer]: [email or web address] ? [employer]: [...] than y (more content not included)... Normal [facility] ED Patient Summaryon 024 ED Patient Summary (Inserted Image. Perla ble to display) [address] [address] Patient Discharge Instructions Person Information Name: JAM TOSCANO Age: 58 Years Arrival Date: 11/27/2023 10:14:59 Discharge Diagnosis: Joint pain; Rheumatoid arthritis Primary Care Physician: Jose L Lackey MD Provider Information Primary Provider: Kavon Johnson DO Advanced Pbx Mechanic:Juancarlos Josue PA-C The exam and treatment you received in the Emergency Department were for an urgent problem and are not intended as complete care. It is important that you follow up with a doctor, nurse practitioner, or physician?s warehouse administrative assistant for ongoing care. If your symptoms [...] Instructions: With: Address: When: Jose L Lackey [address] [place] [address], [facility] [place] [address] Business (1) In 3 days 11/30/2023 In the event that this physician does not participate in your insurance network, please consult with your insurance company to find a nearby participating provider. Patient Education Materials: Rheumatoid Arthritis A MESSAGE TO ALL PATIENTS REGARDING OPIOIDS PRESCRIPTION OPIOIDS: WHAT YOU NEED TO KNOW Prescription opioids can be used to help relieve ztauginh-rg-xzvrfp pain and are often prescribed following a [...] struggling with addiction, tell your health manager intensive care and ask for guidance or call [facility]?S National Helpline at 0-195-738-DBL (more content not included)... Normal [facility] eGFRon 11-27-2023 GFR/1.73 sq M.predicted among non-blacks MDRD (S/P/Bld) [Vol rate/Area] mL/min/{1.73_m2} Normal >=59 [facility] Comment on above: Order Comment: Order added by Discern Expert. Performed By: #### 2 007403, 1989783, 79568821, 0999862 ####[facility] [address] [place] [address] ED Note-Physicianon 11-08-20 ED Note-Physician Basic Information [...] day(s), # 20 tab(s), Refills(s) 0, Pharmacy: [facility]/pharmacy #[id number], 167, cm, 11/04/23 17:47:00 EST, Height/Length Dosing, 73.5, kg, 11/04/23 17:47:00 EST, Weight Dosing 2. Hypokalemia (E87.6: Hypokalemia) Ordered: amoxicillin-clavulanate, = 1 tab(s), Oral, q12hr, X 10 day(s), # 20 tab(s), Refills(s) 0, Pharmacy: [facility]/pharmacy #[id number], 167, cm, 11/04/23 17:47:00 EST, Height/Length Dosing, 73.5, kg, 11/04/23 17:47:00 EST, Weight Dosing 4. Colitis (K52.9: Noninfective gastroenteritis and colitis, unspecified) Ordered: amoxicillin-clavulanate, = 1 tab(s), Oral, q12hr, X 10 day(s), # 20 tab(s), Refills(s) 0, Pharmacy: [facility]/pharmacy #[id number], 167, cm, 11/04/23 17:47:00 EST, [...] Level PT & PTT Rapid COVID Antigen ([facility]) Saline Lock Insert Troponin 0 Hr. UA [...] MD In 3 days 11/07/2023 EST [address] [place] [address]- Additional Instructions: Patient Education COVID-19 Colitis Hyp (more content not included)... Normal [facility] Comment on above: Result Comment: Elec tronically Signed By: Barbara Brand PA-C\.br\Date and Time Signed: 11/04/23 20:21 EST\.br\Electronically Co-Signed By: Kavon Johnson DO\.br\Date and Time Co-Signed: 11/08/23 19:04 EST Reportability Response - Pub lic Healthon 11-08-2023 Reportability Response - Public Health {[id number]-[id number]-[id number]-[id number]- u2-yu-9w-lv-nr-l1-f5-2f}X ML Normal [facility] Auto Diffon 11-04-2023 Basophils/100 WBC (Bld) 0.3 % Normal 0.0-2.0 [facility] Comment on above: Order Comment: Order Added by Discern Expert. Performed By: #### 1 7438866, 0176973, 96197170, 53335484, 0234095, 3271281, 9909145, 3714779 ####[facility] [address] [place] [address] Basophils/Leukocytes Auto (Bld) [Pure # fraction] 0.0 E9/L Normal 0.0-0.2 [facility] Comment on above: Order Comment: Order Added by Discern Expert. Performed By: #### 1 0528919, 0062751, 52794261, 57096510, 0790460, 7513999, 8524700, 6551532 ####[facility] [address] [place] [address] Eosinophils/100 WBC (Bld) 0.0 % Normal 0.0-8.0 [facility] Comment on above: Order Comment: Order Added by Discern Expert. Performed By: #### 1 7922804, 9545498, 41711105, 40223334, 0621185, 7552304, 5634136, 4204473 ####[place] [address] [address] Eosinophils/Leukocytes Auto (Bld) [Pure # fraction] 0.0 E9/L Normal 0.0-0.5 [facility] Comment on above: Order Comment: Order Added by Discern Expert. Performed By: #### 1 6724343, 8575288, 42002706, 49008171, 2410833, 4003611, 1506792, 3332512 ####[address] [address] Lymphocytes/100 WBC (Bld) 18.0 % Normal 14.0-50.0 [facility] Comment on above: Order Comment: Order Added by Discern Expert. Performed By: #### 1 8767014, 5183983, 73600962, 67154708, 4273394, 3264353, 6048164, 7527506 ####[address] [address] Lymphocytes/Leukocytes Auto (Bld) [Pure # fraction] 1.1 E9/L Normal 1.0-4.0 [facility] Comment on above: Order Comment: Order Added by Discern Expert. Performed By: #### 1 4800600, 8736871, 24673053, 49764791, 3285910, 9917387, 0488492, 6641083 ####[address] [address] Monocytes/100 WBC (Bld) 8.0 % Normal 4.0-14.0 [facility] Comment on above: Order Comment: Order Added by Discern Expert. Performed By: #### 1 5813881, 6261374, 81575986, 21180550, 5967794, 3060135, 1343446, 2019651 ####[address] [address] Monocytes/Leukocytes Auto (Bld) [Pure # fraction] 0.5 E9/L Normal 0.2-1.0 [facility] Comment on above: Order Comment: Order Added by Discern Expert. Performed By: #### 1 4813723, 0010797, 12857884, 00778605, 9739110, 7959794, 3191161, 4613394 ####[place] [address] [place] [address] Neutrophils/100 WBC (Bld) 73.7 % Normal 36.0-75.0 [facility] Comment on above: Order Comment: Order Added by Discern Expert. Performed By: #### 1 0066627, 2476656, 57223045, 82296202, 1264656, 5851781, 2421783, 3166735 ####[facility] [address] [place] [address] Neutrophils/Leukocytes Auto (Bld) [Pure # fraction] 4.5 E9/L Normal 2.0-7.5 [facility] Comment on above: Order Comment: Order Added by Discern Expert. Performed By: #### 1 9323566, 9939695, 15515285, 27700549, 1803867, 6888177, 6833683, 0369995 ####[address] [address] CBC w/ Auto Diffon 3 Erythrocyte distribution width (RBC) [Ratio] 14.0 % Normal 10.9-14.2 [facility] Comment on above: Performed By: #### 1 4659990, 1945577, 40858290, 57881831, 7833960, 5595288, 5580199, 3121826 ####[place] [address] [place] [address] Hematocrit (Bld) [Volume fraction] 33.4 % Low 37.7-49.0 [facility] Comment on above: Performed By: #### 1 2964482, 5636837, 02510526, 61729380, 1071253, 2237721, 9432176, 3767593 ####[facility] [address] [place] [address] Hemoglobin (Bld) [Mass/Vol] 11.3 g/dL Low 13.5-17.5 [facility] Comment on above: Performed By: #### 1 4204876, 8270615, 08430251, 82249627, 8980876, 3068273, 9971155, 9392902 ####[place] [address] [place] [address] MCH (RBC) [Entitic mass] 30.4 pg Normal 27.0-34.0 [facility] Comment on above: Performed By: #### 1 5679437, 7004395, 76640209, 05938597, 5227538, 1627558, 4880166, 0709717 ####[address] [address] MCHC (RBC) [Mass/Vol] 33.9 g/dL Normal 31.4-36.0 [facility] Comment on above: Performed By: #### 1 9246372, 7883595, 46171015, 57146430, 9397236, 0639758, 1710663, 2086771 ####[place] [address] MCV (RBC) [Entitic vol] 89.7 fL Normal 80.0-100.0 [facility] Comment on above: Performed By: #### 1 2637426, 5267978, 82412742, 71150463, 0562157, 3524387, 6998577, 0310259 ####[address] [address] Platelet mean volume (Bld) [Entitic vol] 6.4 fL Normal 6.4-10.8 [facility] Comment on above: Performed By: #### 1 1005453, 6971519, 29923498, 65913187, 5929054, 7117541, 5863327, 9562810 ####[address] [address] Platelets (Bld) [#/Vol] 224.0 E9/L Normal 150. 0-500. 0 [facility] Comment on above: Performed By: #### 1 5930861, 3760631, 13919763, 52819231, 6526274, 0345905, 7054250, 8217998 ####[facility] [address] [place] [address] RBC (Bld) [#/Vol] 3.7 E12/L Low 4.3-5.9 [facility] Comment on above: Performed By: #### 1 3112784, 6465860, 08034856, 64246312, 0265098, 4203309, 2718900, 5307347 ####[facility] [address] [place] [address] WBC corrected for nucl RBC Auto (Bld) [#/Vol] 6.0 E9/L Normal 4.0-11.0 [facility] Comment on above: Performed By: #### 1 0217756, 5496968, 43392815, 52953539, 3351784, 9200788, 5517030, 0751873 ####[address] [address] CMPon 11-04-2023 Albumin [Mass/Vol] 3.4 g/dL Normal 3.3-5.0 [facility] Comment on above: Performed By: #### 1 8113976, 2795651, 89629921, 58247820, 8488873, 8577404, 5293646, 9810493 ####[place] [address] [place] [address] Albumin/Globulin [Mass ratio] 1.1 {ratio} Normal 1.1-2.2 [facility] Comment on above: Performed By: #### 1 6629730, 5370536, 75966835, 28931636, 7802114, 4262476, 7291264, 3929712 ####[place] [address] [place] [address] Alk Phos 106 Int._Unit/L High 21-98 [facility] Comment on above: Performed By: #### 1 1083944, 7970079, 76439098, 78538376, 2012049, 8400458, 2763533, 6561823 ####[facility] [address] [place] [address] ALT 19 Int._Unit/L Normal 6-46 [facility] Comment on above: Performed By: #### 1 3585063, 2596591, 78370609, 01332757, 8788705, 1910163, 4405960, 2546247 ####[facility] [address] [place] [address] Anion gap [Moles/Vol] 10 mmol/L Normal 6-16 [facility] Comment on above: Performed By: #### 1 2255949, 0091261, 67081454, 75097920, 4874032, 1678632, 2408821, 0977681 ####[facility] [address] [place] [address] AST 25 Int._Unit/L Normal 5-43 [facility] Comment on above: Performed By: #### 1 6107733, 0653439, 78125351, 21242384, 2882653, 1672402, 5388568, 9509219 ####[facility] [address] [place] [address] Bili Total 0.5 mg/dL Normal 0.0-1.1 [facility] Comment on above: Performed By: #### 1 2226605, 3390234, 72850384, 86425976, 6739744, 4904221, 0532278, 3502303 ####[facility] [address] [place] [address] BUN/Creat Ratio 13 No Units Normal 10-20 [facility] Comment on above: Performed By: #### 1 0276075, 6132155, 59162085, 97239231, 9934125, 9640661, 0509543, 5169159 ####[facility] [address] [place] [address] Calcium [Mass/Vol] 8.2 mg/dL Low 8.9-11.1 [facility] Comment on above: Performed By: #### 1 1502480, 1709212, 74813063, 69858937, 3664070, 3393470, 4365032, 0092986 ####[facility] [address] [place] [address] Chloride [Moles/Vol] 105 mmol/L Normal 101-111 [facility] Comment on above: Performed By: #### 1 7120412, 2542826, 88507039, 54762076, 3303074, 9613316, 1575585, 5193815 ####[facility] [address] [place] [address] CO2 [Moles/Vol] 26 mmol/L Normal 21-31 [facility] Comment on above: Performed By: #### 1 7680686, 2549094, 51082387, 47615105, 8486565, 9774785, 9967709, 0853421 ####[facility] [address] [place] [address] Creatinine [Mass/Vol] 0.9 mg/dL Normal 0.5-1.3 [facility] Comment on above: Performed By: #### 1 0263636, 7906327, 69090863, 40420207, 9012126, 9115290, 1945984, 8803414 ####[facility] [address] [place] [address] Globulin (S) [Mass/Vol] 3.0 g/dL Normal 1.4-4.0 [facility] Comment on above: Performed By: #### 1 6247773, 6434116, 22332401, 74096551, 5363979, 9979965, 0922732, 3507836 ####[facility] [address] [place] [address] Glucose [Mass/Vol] 102 mg/dL Normal 55-199 [facility] Comment on above: Performed By: #### 1 5455566, 3830797, 83609718, 31525072, 7136354, 3745039, 1325445, 1660263 ####[facility] [address] [place] [address] Potassium [Moles/Vol] 3.3 mmol/L Low 3.5-5.3 [facility] Comment on above: Performed By: #### 1 5356611, 5567064, 43439629, 24013506, 1204521, 1858907, 4484295, 9462026 ####[facility] [address] [place] [address] Protein [Mass/Vol] 6.4 g/dL Normal 6.0-7.8 [facility] Comment on above: Performed By: #### 1 8892231, 4378406, 43226312, 52196874, 3669635, 0310948, 0657091, 8900320 ####[facility] [address] [place] [address] Sodium [Moles/Vol] 138 mmol/L Normal 135-145 [facility] Comment on above: Performed By: #### 1 8295710, 3367480, 19278475, 00871684, 2299187, 9723845, 3768606, 4272063 ####[facility] [address] [place] [address] Urea nitrogen [Mass/Vol] 12 mg/dL Normal 5-21 [facility] Comment on above: Performed By: #### 1 2661650, 2559853, 91156837, 42126643, 7481189, 6017903, 0693552, 5598338 ####[facility] [address] [place] [address] CT Abdomen/Pelvis w/ Contras ton 11-04-2023 CT [...] 300 Contrast amount in ml's: 100 Normal [facility] Consent for Treatmenton 10-17 Consent for Treatment [id number] Normal [facility] Discharge Instructionson Discharge Instructions [id number] Normal [facility] ED Clinical Summaryon 2022 ED Clinical Summary (Inserted Image. Perla ble to display) [place] [id number] ED Clinical Summary Person Information Name: JAM TOSCANO [facility] Age: 58 Years : 1965 Sex: Male Language: Macedonian PCP: Jose L Lackey MD Marital Status: [...] 11/04/2023 20:23:46 11/04/2023 20:23:46 11/04/2023 20:23:46 ADDRESS: [address] [place] [address] [address] [facility] [phone] PHYS DOC NOTES: MEDICAL INFORMATION: Prescriptions Given: New Medications [facility]/pharmacy #6177, [address], [place] [id number], [phone] amoxicillin-clavulanate (Augmentin 875 mg oral tablet) 1 [...] With: Address: When: Jose L Lackey MD [address] [facility] [place] [place] [address] In 3 days 11/07/2023 DIAGNOSIS: 1:COVID-19; 2:Hypokalemia; 3:Pneumonia due to COVID-19 virus; 4:Colitis; Pneumonia due to coronavirus disease 2019 Normal [facility] ED Patient Education Noteon 11-04-2023 ED [...] you start to feel better. ? Take dmuy-brz-aevokfz and prescription medicines only as told by [...] provider. Document Revised: 07/09/2021 Document Reviewed: 07/09/2021 [employer] Patient Education ? 2022 [employer] Hypokalemia Hypokalemia means that the amount [...] through an (more content not included)... Normal [facility] ED Patient Summaryon 023 ED Patient Summary (Inserted Image. Perla ble to display) [place] [address] Patient Discharge Instructions Person Information Name: JAM TOSCANO Age: 58 Years Arrival Date: 11/04/2023 17:35:01 Discharge Diagnosis: 1:COVID-19; 2:Hypokalemia; 3:Pneumonia due to COVID-19 virus; 4:Colitis; Pneumonia due to coronavirus disease 2018 Primary Care Physician: Jose L Lackey MD Provider Information Primary Provider: Kavon Johnson DO Advanced Pbx Mechanic:None The exam and treatment you received in the Emergency Department were for an urgent problem and are not intended as complete care. It is important that you follow up with a doctor, nurse practitioner, or physician?s warehouse administrative assistant for ongoing care. If your symptoms [...] Address: When: Jose L Lackey MD [address] [facility] [place] [address] In 3 days 11/07/2023 In the event that this physician does not participate in your insurance network, please consult with your insurance company to find a nearby participating provider. Patient Education Materials: COVID-19; Colitis; Hypokalemia A MESSAGE TO ALL PATIENTS REGARDING OPIOIDS PRESCRIPTION OPIOIDS: WHAT YOU NEED TO KNOW Prescription opioids can be used to help relieve oxtqvxbl-lh-lcbfdq pain and are often prescribed following a [...] struggling with addiction, tell your health manager intensive care and as (more content not included)... Normal [facility] Lactic Acidon 11-04-2023 Lactic Acid Lvl 1.0 mmol/L Normal 0.5-2.2 [facility] Comment on above: Performed By: #### 1 6750904, 8658306, 98355963, 75944815, 5773138, 1878763, 8670427, 7544847 ####[facility] [address] [place] [address] Magnesiumon 11-04-2023 Magnesium [Mass/Vol] 1.4 mg/dL Normal 1.3-2.4 [facility] Comment on above: Performed By: #### 1 0168264, 3650877, 81405685, 75229077, 3181276, 9057284, 6573924, 0449873 ####[facility] [address] [place] [address] PT & PTTon 11-04-2023 aPTT Coag (PPP) [Time] 34.0 second(s) Normal 25.1-36.5 [facility] Comment on above: Result Comment: Para [...] the same coagulation reagent and instrumentation as [facility]. Currently there are no coagulation studies available worldwide for children to 14 days, and no normal ranges. Heparin therapeutic range (represented by Anti-Factor Xa activity of 0.2 - 0.4 U/mL) corresponds to PTT of 56.6 - 109.0 sec. Performed By: #### 1 9605397, 3134841, 35389491, 31796751, 2974999, 0747874, 3569274, 4592111 ####[facility] [address] [place] [address] INR Coag (PPP) [Relative time] 1.2 {INR} Invalid Interpretation Code [facility] Comment on above: Result Comment: INR results are specifically intended to assess patients stabilized on long-term Anticoagulation therapy suggested INR?s ?Less Intensive Anticoagulation? 2.0 ? 3.0 Conventional Range 3.0 ? 4.5 Performed By: #### 1 1783325, 7954961, 50339967, 10533522, 5538366, 2523101, 5261639, 9598236 ####[facility] [address] [place] [address] PT Coag (PPP) [Time] 13.7 second(s) High 9.4-12.5 [facility] Comment on above: Result Comment: 15 [...] the same coagulation reagent and instrumentation as [facility]. Currently there are no coagulation studies available worldwide for children to 14 days, and no normal ranges. Performed By: #### 1 9910575, 9814532, 44946360, 73853666, 3831318, 8121629, 5717785, 4087789 ####[place] [address] [place] [address] Rapid COVID Antigen ([facility])on 11-04-2023 Rapid COV Int NEG Ctl Pass Normal [facility] Comment on above: Performed By: #### 2 [id number] ####[address] [address] Rapid COV Int POS Ctl Pass Normal [facility] Comment on above: Performed By: #### 2 [id number] ####[address] [address] SARS-CoV+SARS-CoV-2 (COVID-19) Ag IA.rapid Ql (Resp) Detected Abnormal Not Detected [facility] Comment on above: Result Comment: The SpectraScienceitor? System for Rapid Detection of SARS-CoV-2 is [...] For in vitro diagnostic use. In the [facility], only for use under an Emergency Use [...] or revoked sooner. Performed By: #### 2 [id number] ####[facility] [place] [address] Reportability Response - Pub [facility] Healthon 11-04-2023 Reportability Response - Public Health {[id number]- [id number]-[id number]-[id number]}X ML Normal [facility] Troponin 0 Hr.on 11-04-2023 Troponin 9.30 pg/mL Low 15.90-38.4 0 [facility] Comment on above: Result Comment: The 95% CI (Confidence Interval) PPV (Positive Predictive Value) for myocardial infarction in females is 38 pg/mL, in males 51 pg/mL. The results should be used in conjunction with clinical conditions of myocardial infarction. (Access High Sensitivity Troponin I Instructions For Use, Missael Suraj, June 2018) Performed By: #### 1 6131903, 5122493, 84875689, 52077641, 3012065, 4712688, 5186759, 0175016 ####[facility] [address] [place] [address] UA With Cult Reflexon 2022 Bacteria LM Ql (Urine sed) 1+ /HPF Abnormal Trace [facility] Comment on above: Performed By: #### 1 [id number] ####[facility] [address] [place] [address] Bilirubin Ql (U) Negative Normal Negative [facility] Comment on above: Performed By: #### 1 2287857 ####[facility] [address] [place] [address] Clarity (U) CLOUDY Abnormal Clear [facility] Comment on above: Performed By: #### 1 1149168 ####[facility] [address] [facility] [place] [address] Color (U) YELLOW Normal Yellow [facility] Comment on above: Performed By: #### 1 6191220 ####[facility] [address] [place] [address] Crystals LM Ql (Urine sed) Present Normal [facility] Comment on above: Performed By: #### 1 8913887 ####[facility] [address] [facility] [place] [address] Epithelial cells.squamous LM.HPF (Urine sed) [#/Area] 0-2 Normal 0-2 [facility] Comment on above: Performed By: #### 1 3691981 ####[facility] [address] [facility] [place] [address] Glucose Test strip (U) [Mass/Vol] Negative Normal Negative [facility] Comment on above: Performed By: #### 1 6966821 ####[facility] [address] [place] [address] Hemoglobin Ql (U) 3+ Abnormal Negative [facility] Comment on above: Performed By: #### 1 9044683 ####[facility] [address] [place] [address] Ketones (U) [Mass/Vol] Negative Normal Negative [facility] Comment on above: Performed By: #### 1 2835213 ####[facility] Nosfmm[address] [facility] [place] [address] [place].plasma/[place].RB C (Bld) [Mass ratio] 21-30 Abnormal 0-3 [facility] Comment on above: Performed By: #### 1 5858154 ####[address] [address] Nitrite Ql (U) Negative Normal Negative [facility] Comment on above: Performed By: #### 1 0868419 ####[place] [address] pH (U) 7.0 [pH] Invalid Interpretation Code 5.0-9.0 [facility] Comment on above: Performed By: #### 1 3615685 ####[place] [address] Protein (U) [Mass/Vol] 1+ Abnormal Negative Fi [facility] Comment on above: Performed By: #### 1 9734287 ####[place] [address] Specific gravity (U) [Rel density] 1.020 Invalid Interpretation Code 1.005-1.03 0 [facility] Comment on above: Performed By: #### 1 8770336 ####[place] [address]2057 Type of Urine collection method Clean Catch Normal [facility] Comment on above: Performed By: #### 1 6116795 ####[address] [address] Urobilinogen Qn (U) 0.2 {Rosina'U}/dL Normal 0.0-1.0 [facility] Comment on above: Performed By: #### 1 4850920 ####[address] [address] WBC Auto Ql (U) Negative Normal Negative [facility] Comment on above: Performed By: #### 1 4493376 ####[address] [address] WBC casts LM.LPF (Urine sed) [#/Area] 0-3 Normal [facility] Comment on above: Performed By: #### 1 3227823 ####[facility] [address] [place] [address] WBC LM.HPF (Urine sed) [#/Area] 0-5 Normal 0-5 [facility] Comment on above: Performed By: #### 1 6575520 ####[facility] [address] [place] [address] XR Chest Single Viewon 11-04 XR Chest [...] mGy = na DAP = na Normal [facility] eGFRon 11-04-2023 GFR/1.73 sq M.predicted among non-blacks MDRD (S/P/Bld) [Vol rate/Area] mL/min/{1.73_m2} Normal >=59 Fishe r [facility] Comment on above: Order Comment: Order added by Discern Expert. Performed By: #### 1 6629849, 9518375, 30335262, 01579870, 1249038, 9041919, 0804012, 9476005 ####[facility] [address] [place] [address] Auto Diffon 10-23-2023 Basophils/100 WBC (Bld) 0.2 % Normal 0.0-2.0 [facility] Comment on above: Order Comment: Order Added by Discern Expert. Performed By: #### 2 565404, 6310137, 5527725, 2167731, 51604635, 6347754 #### [facility] [address] [place] [address] Basophils/Leukocytes Auto (Bld) [Pure # fraction] 0.0 E9/L Normal 0.0-0.2 [facility] Comment on above: Order Comment: Order Added by Discern Expert. Performed By: #### 2 224426, 5351245, 2495968, 8881358, 56857920, 6176233 #### [facility] [address] [place] [address] Eosinophils/100 WBC (Bld) 0.0 % Normal 0.0-8.0 [facility] Comment on above: Order Comment: Order Added by Discern Expert. Performed By: #### 2 755977, 5417695, 8611978, 3542771, 57214395, 7130432 #### [facility] [address] [place] [address] Eosinophils/Leukocytes Auto (Bld) [Pure # fraction] 0.0 E9/L Normal 0.0-0.5 [facility] Comment on above: Order Comment: Order Added by Discern Expert. Performed By: #### 2 860147, 6050353, 1287532, 0127059, 40662001, 9801494 #### [facility] [address] [place] [address] Lymphocytes/100 WBC (Bld) 7.8 % Low 14.0-50.0 [facility] Comment on above: Order Comment: Order Added by Discern Expert. Performed By: #### 2 251417, 6795201, 6980944, 6879330, 54642603, 2019936 #### [facility] [address] [place] [address] Lymphocytes/Leukocytes Auto (Bld) [Pure # fraction] 0.8 E9/L Low 1.0-4.0 [facility] Comment on above: Order Comment: Order Added by Discern Expert. Performed By: #### 2 956084, 6124747, 1614989, 2416806, 67118814, 8487602 #### [facility] [address] [place] [address] Monocytes/100 WBC (Bld) 1.6 % Low 4.0-14.0 [facility] Comment on above: Order Comment: Order Added by Discern Expert. Performed By: #### 2 942764, 5210973, 0746584, 4042643, 49169304, 6202190 #### [facility] [address] [place] [address] Monocytes/Leukocytes Auto (Bld) [Pure # fraction] 0.2 E9/L Normal 0.2-1.0 [facility] Comment on above: Order Comment: Order Added by Discern Expert. Performed By: #### 2 803063, 4101859, 0304430, 1100096, 19305481, 2770353 #### [facility] [address] [place] [address] Neutrophils/100 WBC (Bld) 90.4 % High 36.0-75.0 [facility] Comment on above: Order Comment: Order Added by Discern Expert. Performed By: #### 2 986109, 5947383, 5888919, 0339606, 65329608, 1693957 #### [facility] [address] [place] [address] Neutrophils/Leukocytes Auto (Bld) [Pure # fraction] 8.9 E9/L High 2.0-7.5 [facility] Comment on above: Order Comment: Order Added by Discern Expert. Performed By: #### 2 471452, 7847815, 8695858, 4952991, 88275300, 1656104 #### [facility] [address] [place] [address] BMPon 10-23-2023 Creatinine [Mass/Vol] 0.8 mg/dL Normal 0.5-1.3 [facility] Comment on above: Performed By: #### 2 428917, 3265006, 8269870, 8885545, 08001477, 2380396 ####[facility] [address] [place] [address] Urea nitrogen [Mass/Vol] 12 mg/dL Normal 5-21 [facility] Comment on above: Performed By: #### 2 027046, 7230424, 1220675, 4033744, 76317104, 6777473 ####[facility] [address] [place] [address] Urea nitrogen/Creatinine [Mass ratio] 15 No Units Normal 10-20 [facility] Comment on above: Performed By: #### 2 653315, 2154136, 5812586, 2364037, 04489286, 2182235 ####[facility] [address] [place] [address] Anion gap [Moles/Vol] 11 mmol/L Normal 6-16 [facility] Comment on above: Performed By: #### 2 587298, 2019077, 5517461, 8974855, 98256089, 6524110 ####[facility] [address] [place] [address] Calcium [Mass/Vol] 9.5 mg/dL Normal 8.9-11.1 [facility] Comment on above: Performed By: #### 2 467737, 6373552, 3702667, 5340047, 13827232, 1444844 ####[facility] [address] [place] [address] Chloride [Moles/Vol] 110 mmol/L Normal 101-111 [facility] Comment on above: Performed By: #### 2 209987, 7604022, 6041019, 6137741, 11727532, 8460529 ####[facility] [address] [place] [address] CO2 [Moles/Vol] 22 mmol/L Normal 21-31 [facility] Comment on above: Performed By: #### 2 442959, 1939257, 4475596, 5449883, 31632290, 9201396 ####[facility] [address] [place] [address] Glucose [Mass/Vol] 149 mg/dL Normal 55-199 [facility] Comment on above: Result Comment: If t his glucose result represents a fasting glucose, interpretation should refer to the following reference range: 55-99 mg/dL Performed By: #### 2 828078, 0968326, 6611874, 3354078, 23978308, 4312182 ####[facility] [address] [place] [address] Potassium [Moles/Vol] 3.4 mmol/L Low 3.5-5.3 [facility] Comment on above: Performed By: #### 2 991238, 8516997, 9282700, 7808111, 71800750, 8021422 ####[facility] [address] [place] [address] Sodium [Moles/Vol] 140 mmol/L Normal 135-145 [facility] Comment on above: Performed By: #### 2 403046, 1021641, 5410752, 8119266, 67823963, 1446120 ####[facility] [address] [place] [address] CBC w/ Auto Diffon 3 Erythrocyte distribution width (RBC) [Ratio] 13.7 % Normal 10.9-14.2 [facility] Comment on above: Performed By: #### 2 707985, 4889514, 7018240, 1068133, 95160076, 9669829 #### [facility] [address] [place] [address] Hematocrit (Bld) [Volume fraction] 38.3 % Normal 37.7-49.0 [facility] Comment on above: Performed By: #### 2 509730, 5711118, 7426588, 2691078, 31622359, 3923716 #### [facility] [address] [place] [address] Hemoglobin (Bld) [Mass/Vol] 12.9 g/dL Low 13.5-17.5 [facility] Comment on above: Performed By: #### 2 077963, 4635434, 9758071, 8865688, 23713225, 0394227 #### [facility] [address] [place] [address] MCH (RBC) [Entitic mass] 30.4 pg Normal 27.0-34.0 [facility] Comment on above: Performed By: #### 2 392300, 7735109, 4297908, 3120249, 19915115, 1697187 #### [facility] [address] [place], [place] [address] MCHC (RBC) [Mass/Vol] 33.7 g/dL Normal 31.4-36.0 [facility] Comment on above: Performed By: #### 2 962831, 2602983, 9014054, 1684523, 65966302, 5565792 #### [facility] [address] [place] [address] MCV (RBC) [Entitic vol] 90.2 fL Normal 80.0-100.0 [facility] Comment on above: Performed By: #### 2 077980, 6114640, 8537406, 3775177, 61524655, 1977781 #### [facility] [address] [place] [address] Platelet mean volume (Bld) [Entitic vol] 6.1 fL Low 6.4-10.8 [facility] Comment on above: Performed By: #### 2 639844, 2064275, 5019631, 3356558, 37326858, 7023245 #### [facility] [address] [place] [address] Platelets (Bld) [#/Vol] 483.0 E9/L Normal 150. 0-500. 0 [facility] Comment on above: Performed By: #### 2 176844, 5563591, 5354968, 1706164, 79229031, 9830076 #### [facility] [address] [place] [address] RBC (Bld) [#/Vol] 4.2 E12/L Low 4.3-5.9 [facility] Comment on above: Performed By: #### 2 179303, 1106598, 6593363, 2816003, 18782237, 2276933 #### [facility] [address] [place] [address] WBC corrected for nucl RBC Auto (Bld) [#/Vol] 9.8 E9/L Normal 4.0-11.0 [facility] Comment on above: Performed By: #### 2 509258, 3066722, 4328864, 2364255, 68826509, 3372069 #### [facility] [address] [place] [address] CT Abdomen/Pelvis w/o Contra ston 10-23-2023 CT [...] Oral contrast amount in ml's: 0 Normal [facility] Consent for Treatmenton Consent for Treatment [id number] Normal [facility] Discharge Instructionson Discharge Instructions [id number] Normal [facility] ED Clinical Summaryon 2022 ED Clinical Summary (Inserted Image. Perla ble to display) [place] [id number] ED Clinical Summary Person Information Name: JAM TOSCANO [facility] Age: 58 Years : 1965 Sex: Male Language: Macedonian PCP: Jose L Lackey MD Marital Status: [...] 10/23/2023 15:54:39 10/23/2023 15:54:39 10/23/2023 15:54:39 ADDRESS: [address] [place] [address] [facility] [phone] PHYS DOC NOTES: MEDICAL INFORMATION: Prescriptions Given: New Medications [id number], [address], [place] [id number], [phone] acetaminophen-oxycodone (acetaminophen-oxycodone 325 mg-5 mg Tab) 1 [...] That Have Changed [id number], [address], [place] [id number], [phone] START: ondansetron (Zofran ODT 4 mg Tab-Dis) [...] up: With: Address: When: Otilia Layne Mark [facility], [address] [phone] Business (1) In 3 days 12 (more content not included)... Normal [facility] ED Note-Physicianon 10-23-20 ED Note-Physician Basic [...] and Complexity of Problems Differential Diagnosis: [] [facility] Data External documents reviewed: [] My [...] pain, # 20 tab(s), Refills(s) 0, Pharmacy: [id number], 168, cm, 10/23/23 13:41:00 EST, Height/Length Dosing, 75.1, kg, 10/23/23 13:41:00 EST, Weight Dosing ondansetron, 4 mg = 2 mL, Injection, IV Push, Once, Stop date 10/23/23 14:30:00 EST, STAT, Start date 10/23/23 14:30:00 EST, 10/23/23 14:30:00 EST ondansetron, 4 mg = 1 tab(s), Oral, q8hr, PRN Nausea/Vomiting, # 30 tab(s), Refills(s) 0, Pharmacy: [facility]acy [facility][id number], 168, cm, 10/23/23 13:41:00 EST, Height/Length Dosing, 75.1, kg, 10/23/23 13:41:00 EST, Weight Dosing Sodium Chloride 0.9% intravenous solution, 1,000 mL, Soln-IV, IV, Once, Stop date 10/23/23 14:29:00 EST, STAT, Start date 10/23/23 14:29:00 EST, Infuse over 61, minute(s) tamsulosin, 0.4 mg = 1 cap(s), Oral, Daily, # 10 cap(s), Refills(s) 0, Pharmacy: [facility]/pharmacy [facility][id number], 168, cm, 10/23/23 13:41:00 EST, Height/Length Dosing, 75.1, k (more content not included)... Normal [facility] Comment on above: Result Comment: [...] these instructions at home: Medicines ? Take sjgo-xct-uyfguxw and prescription medicines only as told by [...] recommendations from (more content not included)... Normal [facility] ED Patient Summaryon 023 ED Patient Summary (Inserted Image. Perla ble to display) [place] [id number] Patient Discharge Instructions Person Information Name: JAM TOSCANO Age: 58 Years Arrival Date: 10/23/2023 13:30:39 Discharge Diagnosis: Kidney stone on left side Primary Care Physician: Jose L Lackey MD Provider Information Primary Provider: Zoila Castillo M.D. Advanced Pbx Mechanic:None The exam and treatment you received in the Emergency Department were for an urgent problem and are not intended as complete care. It is important that you follow up with a doctor, nurse practitioner, or physician?s warehouse administrative assistant for ongoing care. If your symptoms [...] Follow-up Instructions: With: Address: When: Otilia Layne [address] [place], [place] [phone] Business (1) In 3 days 10/26/2023 Comments: Follow-up with urology for further evaluation of your left-sided kidney stones. With: Address: When: Jose L Ziyad [address] [place] [address] [place] [phone] Business (1) In 3 days 10/26/2023 Comments: [...] opioids can be used to help relieve hsnpoxly-mj-awrcgg pain and are often prescribed following a [...] your pharma (more content not included)... Normal [facility] Hep Func Panelon 10-23-2023 Bilirubin.indirect [Mass or moles/Vol] UTC Abnormal 0.1-0.9 [facility] Comment on above: Result Comment: Resu lt verified by Discern Rule. Performed result UT (Unable to Calculate) was sent as an Alpha code due the inability to calculate a valid numeric value. Performed By: #### 2 979018, 1991285, 6350953, 2284821, 86800409, 3405534 ####[facility] [address] [place] [address] Albumin [Mass/Vol] 3.5 g/dL Normal 3.3-5.0 [facility] Comment on above: Performed By: #### 2 902238, 7069267, 1380008, 6157713, 87359912, 4196784 ####[facility] [address] [place] [address] Albumin/Globulin (S) [Mass conc ratio] 1.0 Low 1.1-2.2 [facility] Comment on above: Performed By: #### 2 081854, 2373767, 1868034, 2796064, 94345096, 5830444 ####[facility] [address] [place] [address] ALP [Catalytic activity/Vol] 194 Int._Unit/L High 21-98 [facility] Comment on above: Performed By: #### 2 980400, 3464891, 0959017, 5203854, 09526939, 3913309 ####[facility] [address] [place] [address] ALT No additional P-5'-P [Catalytic activity/Vol] 32 Int._Unit/L Normal 6-46 [facility] Comment on above: Performed By: #### 2 078323, 9120452, 2377033, 7256584, 82469818, 7108286 ####[facility] [address] [place] [address] AST [Catalytic activity/Vol] 34 Int._Unit/L Normal 5-43 [facility] Comment on above: Performed By: #### 2 688770, 1000009, 9059647, 8006174, 95877457, 7825480 ####[facility] [address] [place] [address] Bilirubin [Mass/Vol] 0.4 mg/dL Normal 0.0-1.1 [facility] Comment on above: Performed By: #### 2 813608, 1187870, 4195765, 6571259, 89502747, 4667287 ####[facility] [address] [place] [address] Globulin (S) [Mass/Vol] 3.7 g/dL Normal 1.4-4.0 [facility] Comment on above: Performed By: #### 2 367987, 7822753, 3343870, 7681058, 07350491, 2150470 ####[facility] [address] [place] [address] Protein [Mass/Vol] 7.2 g/dL Normal 6.0-7.8 [facility] Comment on above: Performed By: #### 2 872664, 7390138, 8906171, 5025568, 08374616, 1349840 ####[facility] [address] [place] [address] Bilirubin.direct [Mass/Vol] mg/dL Normal 0.1-0.4 [facility] Comment on above: Performed By: #### 2 873387, 6884917, 8470565, 4629990, 18924784, 0506476 ####[facility] [address] [place] [address] Lipase Levelon 10-23-2023 Lipase [Catalytic activity/Vol] 31 U/L Normal 13-58 [facility] Comment on above: Performed By: #### 2 279106, 6129777, 3399408, 5283220, 58319356, 1828461 #### [facility] [address] [place] [address] Physician Orderon 10-23-2023 Physician Order [id number]#[id number] Normal [facility] UA With Cult Reflexon 2022 Bacteria LM Ql (Urine sed) 1+ /HPF Abnormal Trace [facility] Comment on above: Performed By: #### 1 9875710 #### [facility] [address] [place] [address] Bilirubin Ql (U) Negative Normal Negative [facility] Comment on above: Performed By: #### 1 9968542 #### [facility] [address] [place] [address] Clarity (U) CLEAR Normal Clear [facility] Comment on above: Performed By: #### 1 4922802 #### [facility] [address] [place] [address] Color (U) YELLOW Normal Yellow [facility] Comment on above: Performed By: #### 1 2372373 #### [facility] [address] [place] [address] Epithelial cells.squamous LM.HPF (Urine sed) [#/Area] 0-2 Normal 0-2 [facility] Comment on above: Performed By: #### 1 0206253 #### [facility] [address] [place] [address] Glucose Test strip (U) [Mass/Vol] Negative Normal Negative [facility] Comment on above: Performed By: #### 1 0989224 #### [facility] [address] [place] [address] Hemoglobin Ql (U) 3+ Abnormal Negative [facility] Comment on above: Performed By: #### 1 9907365 #### [facility] [address] [place] [address] Ketones (U) [Mass/Vol] Negative Normal Negative [facility] Comment on above: Performed By: #### 1 2553716 #### [facility] [address] [place] [address] [place].plasma/[place].RB C (Bld) [Mass ratio] 4-20 Normal 0-3 [facility] Comment on above: Performed By: #### 1 2724194 #### [facility] [address] [place] [address] Mucus Ql (Urine sed) TRACE Normal [facility] Comment on above: Performed By: #### 1 8579691 #### [facility] [address] [place] [address] Nitrite Ql (U) Negative Normal Negative [facility] Comment on above: Performed By: #### 1 1592056 #### [facility] [address] [place] [address] pH (U) 6.0 [pH] Invalid Interpretation Code 5.0-9.0 [facility] Comment on above: Performed By: #### 1 5146081 #### [facility] [address] [place] [address] Protein (U) [Mass/Vol] TRACE Abnormal Negative [facility] Comment on above: Performed By: #### 1 2775972 #### [facility] [address] [place] [address] Specific gravity (U) [Rel density] 1.010 Invalid Interpretation Code 1.005-1.03 0 [facility] Comment on above: Performed By: #### 1 3171445 #### [facility] [address] [place] [address] Type of Urine collection method Clean Catch Normal [facility] Comment on above: Performed By: #### 1 1702387 #### [facility] [address] [place] [address] Urobilinogen Qn (U) 0.2 {Rosina'U}/dL Normal 0.0-1.0 [facility] Comment on above: Performed By: #### 1 1460773 #### [facility] [address] [place] [address] WBC Auto Ql (U) TRACE Abnormal Negative [facility] Comment on above: Performed By: #### 1 9036317 #### [facility] [address] [place] [address] WBC LM.HPF (Urine sed) [#/Area] 0-5 Normal 0-5 [facility] Comment on above: Performed By: #### 1 2411134 #### [facility] [address] [place] [address] eGFRon 10-23-2023 GFR/1.73 sq M.predicted among non-blacks MDRD (S/P/Bld) [Vol rate/Area] 102 mL/min/1.73 m2 Normal >=59 [facility] Comment on above: Order Comment: Order added by Discern Expert. Result Comment: Automation Design Engineer clark kidney disease could be indicated at eGFR's of less than 60 mL/min/1.73m2. Kidney failure is indicated at less than 15 mL/min/1.73m2. Performed By: #### 2 859859, 4829566, 2990875, 0506878, 89763015, 8008008 ####[facility] [address] [place] [address] Physician Orderon 07-02-2023 Physician Order [id number] Normal [facility] LIPID PROFILEon 02-11-2023 CHOL-HDL RATIO NORM SEE BELOW Normal [facility] Comment on above: Result Comment: 3.3 - 4.4 LOW RISK 4.4 - 7.1 AVERAGE RISK 7.1 - 11.0 MODERATE RISK >11.0 HIGH RISK Performed By: #### L CASEY LIVER #### [facility] [address] [place] [address] Dr. Rj Miller Cholesterol [Mass/Vol] 99 mg/dL Normal <=200 [facility] Comment on above: Performed By: #### L CASEY LIVER #### [facility] [address] [place] [address] [address] Rj Miller Cholesterol in HDL [Mass/Vol] 44 mg/dL Normal 40-60 [facility] Comment on above: Performed By: #### L CASEY, LIVER #### [facility] [facility] [place] [facility] [address] [place] [address] Dr. Rj Miller Cholesterol in LDL [Mass/Vol] 45.4 mg/dL Normal [facility] Comment on above: Performed By: #### L IPID, LIVER #### [facility] [place] [facility] [address] [place] [address] Dr. Rj Miller Cholesterol.total/Cholest carlos in HDL [Mass ratio] 2.3 {ratio} Normal [facility] Comment on above: Performed By: #### L IPID, LIVER #### [facility] [place] [facility] [address] [place] [address] Dr. Rj Miller HDL NORMAL > or = 60 mg/dl - LO W CARDIOVASCULAR RISK <40 mg/dl - HIGH CARDIOVASCULAR RISK Normal [facility] Comment on above: Performed By: #### L IPID, LIVER #### [facility] [place] [facility] [address] [place] [address] Dr. Rj Miller LDL CALC NORMAL SEE BELOW Normal [facility] Comment on above: Result Comment: <100 mg/dl OPTIMAL 100 - 129 mg/dl NEAR OR ABOVE OPTIMAL 130 - 159 mg/dl BORDERLINE HIGH 160 - 189 mg/dl HIGH >190 mg/dl VERY HIGH Performed By: #### L IPID, LIVER #### [facility] [place] [address] [place] [address] Dr. Rj Miller Triglyceride [Mass/Vol] 48 mg/dL Normal <=150 T [facility] Comment on above: Performed By: #### L IPID, LIVER #### [facility] [place] [facility] [address] [place] [address] Dr. Rj Miller VLDL CALC 9.6 mg/dL Normal [facility] Comment on above: Performed By: #### L IPID, LIVER #### [facility] [place] [facility] [address] [place] [address] Dr. Rj Miller LIVER PROFILEon 02-11-2023 Albumin [Mass/Vol] 3.7 g/dL Normal 3.4-5.0 [facility] Comment on above: Performed By: #### L IPID, LIVER #### [facility] [place] [facility] [address] [place] [address] Dr. Rj Miller Albumin/Globulin [Mass ratio] 1.0 {ratio} Normal [facility] Comment on above: Performed By: #### L IPID, LIVER #### [facility] [place] [facility] [address] [place] [address] Dr. Rj Miller ALP [Catalytic activity/Vol] 210 U/L Critically high 46-116 [facility] Comment on above: Performed By: #### L IPID, LIVER #### [facility] [place] [facility] [address] [place] [address] Dr. Rj Miller ALT [Catalytic activity/Vol] 50 U/L Normal 16-63 [facility] Comment on above: Performed By: #### L IPID, LIVER #### [facility] [place] [facility] [address] [place] [address] Dr. Rj Miller AST [Catalytic activity/Vol] 42 U/L Critically high 15-37 [facility] Comment on above: Performed By: #### L IPID, LIVER #### [facility] [place] [facility] [address] [place] [address] Dr. Rj Miller BILI, CONJUGATED 0.1 mg/dL Normal 0.0-0.2 [facility] Comment on above: Performed By: #### L IPID, LIVER #### [facility] [place] [facility] [address] [place] [address] Dr. Rj Miller Bilirubin [Mass/Vol] 0.3 mg/dL Normal 0.2-1.0 [facility] Comment on above: Performed By: #### L IPID, LIVER #### [facility] [place] [facility] [address] [place] [address] Dr. Rj Miller Globulin (S) [Mass/Vol] 3.7 g/dL Normal T [facility] Comment on above: Performed By: #### L IPID, LIVER #### [facility] [place] [facility] [address] [place] [address] Dr. Rj Miller Protein [Mass/Vol] 7.4 g/dL Normal 6.4-8.2 [facility] Comment on above: Performed By: #### L IPID, LIVER #### [facility] [place] [facility] [address] [place] [address] Dr. Rj Miller 25-hydroxyvitamin D3 [Mass/V ol]on [...] complex. 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 left L2-L3 and mild right L3-L4 foraminal stenosis Electronically authenticated by: KALEIGH CANTOR Date: 2022-11-24 11:35 Normal [facility] XR LSPINE MIN 4 VIEWSon 12-2 XR [...] by: JENNY TAPIA Date: 2022-11-07 11:13 Normal [facility] DXA-AXIAL SKELETONon 022 LOWEST T-SCORE -2.5 [facility] CBC AUTO DIFFon 09-24-2022 BASO # 0.0 103/ul Normal 0.0-0.1 [facility] Comment on above: Performed By: #### C BC #### [facility] [place] [facility] [address] [address] [address] Rj Miller Basophils/100 WBC (Bld) 0.5 % Normal 0.2-2.0 [facility] Comment on above: Performed By: #### C BC #### [facility] [place] [facility] [address] [address] [address] Rj Miller EO # 0.2 103/ul Normal 0.0-0.7 [facility] Comment on above: Performed By: #### C BC #### [facility] [place] [facility] [address] [address] [address] Rj Miller Eosinophils/100 WBC (Bld) 1.8 % Normal 0.9-7.0 [facility] Comment on above: Performed By: #### C BC #### [facility] [place] [facility] [address] [address] [address] Rj Miller Erythrocyte distribution width (RBC) [Ratio] 13.6 % Normal 11.0-15.0 [facility] Comment on above: Performed By: #### C BC #### [facility] [place] [facility] [address] [address] [address] Rj Miller Hematocrit (Bld) [Volume fraction] 41.3 % Critically low 42.0-54.0 [facility] Comment on above: Performed By: #### C BC #### [facility] [place] [facility] [address] [place] [address] Dr. Rj Miller Hemoglobin (Bld) [Mass/Vol] 14.1 g/dL Normal 14.0-18.0 [facility] [place] Comment on above: Performed By: #### C BC #### [facility] [place] [facility] [address] [place] [address] Dr. Rj Miller IG # 0.02 10e3/ul Normal 0.00-0.03 [facility] [place] Comment on above: Performed By: #### C BC #### [facility] [place] [facility] [address] [place] [address] Dr. Rj Miller IG % 0.2 % Normal 0.0-0.5 [facility] [place] Comment on above: Performed By: #### C BC #### [facility] [place] [facility] [address] [place] [address] Dr. Rj Miller LYMPH # 2.4 103/ul Normal 1.2-3.8 [facility] [place] Comment on above: Performed By: #### C BC #### [facility] [place] [facility] [address] [place] [address] Dr. Rj Miller Lymphocytes/100 WBC (Bld) 29.5 % Normal 20.5-60.0 [facility] [place] Comment on above: Performed By: #### C BC #### [facility] [place] [facility] [address] [place] [address] Dr. Rj Miller MANUAL DIFF REQ NO Normal [facility] [place] Comment on above: Performed By: #### C BC #### [facility] [place] [facility] [address] [place] [address] Dr. Rj Miller MCH (RBC) [Entitic mass] 31.1 pg Normal 25.9-34.0 [facility] [place] Comment on above: Performed By: #### C BC #### [facility] [place] [facility] [address] [place] [address] Dr. Rj Miller MCHC (RBC) [Mass/Vol] 34.1 g/dL Normal 29.9-35.2 [facility] [place] Comment on above: Performed By: #### C BC #### [facility] [place] [facility] [address] [place] [address] Dr. Rj Miller MCV (RBC) [Entitic vol] 91.0 fL Normal 80.0-94.0 [facility] Comment on above: Performed By: #### C BC #### [facility] [place] [facility] [address] [place] [address] Dr. Rj Miller MONO # 0.7 103/ul Normal 0.3-0.8 [facility] Comment on above: Performed By: #### C BC #### [facility] [place] [facility] [address] [place] [address] Dr. Rj Miller Monocytes/100 WBC (Bld) 8.3 % Normal 1.7-12.0 [facility] Comment on above: Performed By: #### C BC #### [facility] [place] [facility] [address] [place] [address] Dr. Rj Miller NEUT # 4.9 103/ul Normal 1.4-6.5 [facility] Comment on above: Performed By: #### C BC #### [facility] [place] [facility] [address] [place] [address] Dr. Rj Miller Neutrophils/100 WBC (Bld) 59.7 % Normal 43.0-75.0 [facility] Comment on above: Performed By: #### C BC #### [facility] [place] [address] [place] [address] Dr. Rj Miller Platelet mean volume (Bld) [Entitic vol] 8.8 fL Critically low 9.5-13.5 [facility] Comment on above: Performed By: #### C BC #### [facility] [place] [facility] [address] [place] [address] Dr. Rj Miller PLT 288 103/ul Normal 150-450 [facility] [place] Comment on above: Performed By: #### C BC #### [facility] [place] [facility] [address] [place] [address] Dr. Rj Miller RBC 4.54 106/ul Critically low 4.70-6.10 [facility] Comment on above: Performed By: #### C BC #### [facility] [place] [facility] [address] [place] [address] Dr. Rj Miller WBC 8.2 103/ul Normal 4.0-11.0 [facility] Comment on above: Performed By: #### C BC #### [facility] [place] [facility] [address] [place] [address] Dr. Rj Miller Covid-19 PCR (CVDTB)on SARS-CoV-2 [...] for this test is supported by the Desktop Manager of Health and Human Service's declaration [...] [facility] [place] [facility] [address] [place] [address] Dr. Rj Miller LIPASEon 09-24-2022 Lipase [Catalytic activity/Vol] 17.0 U/L Critically low 73.0-393.0 [facility] [place] Comment on above: Performed By: #### C MP, LIPA, HSTROPN #### [facility] [place] [facility] [address] [place] [address] Dr. Rj Miller PROF 14(COMP METB)on 022 Albumin [Mass/Vol] 3.8 g/dL Normal 3.4-5.0 [facility] [place] Comment on above: Performed By: #### C MP, LIPA, HSTROPN #### [facility] [place] [facility] [address] [place] [address] Dr. Rj Miller Albumin/Globulin [Mass ratio] 1.0 {ratio} Normal [facility] Comment on above: Performed By: #### C MP, LIPA, HSTROPN #### [facility] [place] [facility] [address] [place] [address] Dr. Rj Miller ALP [Catalytic activity/Vol] 180 U/L Critically high 46-116 [facility] Comment on above: Performed By: #### C MP, LIPA, HSTROPN #### [facility] [place] [facility] [address] [place] [address] Dr. Rj Miller ALT [Catalytic activity/Vol] 38 U/L Normal 16-63 [facility] [place] Comment on above: Performed By: #### C MP, LIPA, HSTROPN #### [facility] [place] [facility] [address] [place] [address] Dr. Rj Miller Anion gap [Moles/Vol] 8.7 mmol/L Normal [facility] Comment on above: Performed By: #### C MP, LIPA, HSTROPN #### [facility] [place] [facility] [address] [place] [address] Dr. Rj Miller AST [Catalytic activity/Vol] 28 U/L Normal 15-37 [facility] Comment on above: Performed By: #### C MP, LIPA, HSTROPN #### [facility] [place] [facility] [address] [place] [address] Dr. Rj Miller Bilirubin [Mass/Vol] 0.4 mg/dL Normal 0.2-1.0 [facility] Comment on above: Performed By: #### C MP, LIPA, HSTROPN #### [facility] [place] [facility] [address] [place] [address] Dr. Rj Miller Calcium [Mass/Vol] 8.9 mg/dL Normal 8.5-10.1 [facility] [place] Comment on above: Performed By: #### C MP, LIPA, HSTROPN #### [facility] [place] [facility] [address] [place] [address] Dr. Rj Miller Chloride [Moles/Vol] 103 mmol/L Normal 98-107 [facility] [place] Comment on above: Performed By: #### C MP, LIPA, HSTROPN #### [facility] [place] [facility] [address] [place] [address] Dr. Rj Miller CO2 [Moles/Vol] 26.0 mmol/L Normal 21.0-32.0 [facility] Comment on above: Performed By: #### C MP, LIPA, HSTROPN #### [facility] [place] [facility] [address] [place] [address] Dr. Rj Miller Creatinine [Mass/Vol] 0.88 mg/dL Normal 0.70-1.30 [facility] Comment on above: Performed By: #### C MP, LIPA, HSTROPN #### [facility] [place] [facility] [address] [place] [address] Dr. Rj Miller EGFR-AF GREENLANDIC >60 Normal >=60 [facility] Comment on above: Performed By: #### C MP, LIPA, HSTROPN #### [facility] [place] [facility] [address] [place] [address] Dr. Rj Miller EGFR-NON AF GREENLANDIC >60 Normal >=60 [facility] Comment on above: Performed By: #### C MP, LIPA, HSTROPN #### [facility] [place] [facility] [address] [place] [address] Dr. Rj Miller Globulin (S) [Mass/Vol] 3.8 g/dL Normal [facility] Comment on above: Performed By: #### C MP, LIPA, HSTROPN #### [facility] [place] [facility] [address] [place] [address] Dr. Rj Miller Glucose [Mass/Vol] 116 mg/dL Critically high 74-106 [facility] Comment on above: Performed By: #### C MP, LIPA, HSTROPN #### [facility] [place] [facility] [address] [place] [address] Dr. Rj Miller Potassium [Moles/Vol] 3.7 mmol/L Normal 3.5-5.1 [facility] Comment on above: Performed By: #### C MP, LIPA, HSTROPN #### [facility] [place] [facility] [address] [place] [address] Dr. Rj Miller Protein [Mass/Vol] 7.6 g/dL Normal 6.4-8.2 [facility] Comment on above: Performed By: #### C MP, LIPA, HSTROPN #### [facility] [place] [facility] [address] [address] [address] Rj Miller Sodium [Moles/Vol] 134 mmol/L Critically low 136-145 Th e [facility] [place] Comment on above: Performed By: #### C MP, LIPA, HSTROPN #### [facility] [place] [facility] [address] [address] [address] Rj Miller Urea nitrogen [Mass/Vol] 13.0 mg/dL Normal 7.0-18.0 [facility] Comment on above: Performed By: #### C MP, LIPA, HSTROPN #### [facility] [place] [facility] [address] [place] [address] Dr. Rj Miller Urea nitrogen/Creatinine [Mass ratio] 14.8 mg/mg Normal [facility] Comment on above: Performed By: #### C MP, LIPA, HSTROPN #### [facility] [place] [facility] [address] [address] [address] Rj Miller TROPONIN, HIGH SENSITIVITYon 09-24-2022 HSTROP 10.1 pg/mL Normal 4.0-76.1 [facility] Comment on above: Result Comment: CUT- OFF POINTS HAVE BEEN ESTABLISHED BASED ON THE FOURTH UNIVERSAL DEFINITIONS OF MYOCARDIAL INFARCTION. THE UPPER REFERENCE LIMIT (URL) OF TROPONIN, DEFINED THE 99TH PERCENTILE OF cTnI DISTRIBUTION IN A REFERENCE POPULATION, HAS BEEN CONFIRMED THE DECISION THRESHOLD FOR GA DIAGNOSIS. Performed By: #### C MP, LIPA, HSTROPN #### [facility] [place] [facility] [address] [address] [address] Rj Miller XR CSPINE 2_3 VIEWSon [...] [facility] [place] Basic Metabolic Panelon - Calcium [Mass/Vol] 8.7 mg/dL Normal 8.2-10.2 [facility] Comment on above: Performed By: #### B MP #### [address] Chloride [Moles/Vol] 107 mmol/L Normal 95-[address] [facility] Comment on above: Performed By: #### B MP #### [address] CO2 [Moles/Vol] 23.3 mmol/L Normal 22.0-30.0 [facility] Comment on above: Performed By: #### B MP #### [address] Creatinine [Mass/Vol] 0.80 mg/dL Normal 0.64-1.27 [facility] Comment on above: Performed By: #### B MP #### [address] Creatinine Clr Calc Pharmacy 101.34 [facility] Comment on above: Result Comment: PERF ORMED BY: [place] [address] PATHOLOGIST INFORMATION ASSURANCE ENGINEER MARGO MINOR M.D. Performed By: #### B MP #### [address] Estimated GFR ( David > 60 Normal [facility] Comment on above: Result Comment: GFR estimated reference range: According to KDOQI guidelines, <60 ml/min/1.73m2 is sufficient to diagnose a patient with chronic kidney disease. Performed By: #### B MP #### [address] Estimated GFR (Non- Am > 60 Normal [facility] Comment on above: Performed By: #### B MP #### [facility] [address] Glucose [Mass/Vol] 101 mg/dL High 70-100 [facility] Comment on above: Result Comment: [place] Glucose Reference Range is dependent on time and content of last meal. Glucose of more than 200 mg/dL in a nonstressed, ambulatory subject supports the diagnosis of Diabetes Mellitus. ADA recommended reference range Performed By: #### B MP #### [facility] [address] Potassium [Moles/Vol] 4.3 mmol/L Normal 3.5-5.1 [facility] Comment on above: Performed By: #### B MP #### [facility] [address] Sodium [Moles/Vol] 138 mmol/L Normal 136-146 [facility] Comment on above: Performed By: #### B MP #### [facility] [address] Urea nitrogen [Mass/Vol] 13 mg/dL Normal 9-23 [facility] Comment on above: Performed By: #### B MP #### [facility] [address] [place] [address] [place] Calculi, Urinaryon 1 Ca Oxalate Dihydrate 60 % Normal . [facility] Comment on above: Performed By: #### C ALCULI #### [facility] , Ca Oxalate Monohydrate 30 % Normal . [facility] Comment on above: Performed By: #### C ALCULI #### [facility] , Color (U) Moy Normal . [facility] Comment on above: Performed By: #### C ALCULI #### [facility] , Comment: Normal . [facility] Comment on above: Result Comment: Phys chao questions regarding Calculi Analysis contact [facility] at: [phone]. Performed By: #### C ALCULI #### [facility] , Composition Normal . [facility] Comment on above: Result Comment: Perc entage (Represents the % composition) Performed By: #### C ALCULI #### [facility] , Disclaimer: Normal . [facility] Comment on above: Result Comment: This test was developed and its performance characteristics determined by [facility]. It has not been cleared or approved by the Food and Drug Administration. Performed at: [facility] [address] [place] [address] Dr Castillo, [place], [place] [id number] Experienced Truck Driver: Anthony Grey MD, Phone: [phone] Performed By: #### C ALCULI #### [facility] , Hydroxyapatite 10 % Normal . [facility] Comment on above: Performed By: #### C ALCULI #### [facility] , Note Normal . [facility] Comment on above: Result Comment: Calc josafat report will follow via computer, mail or glass mold repairer delivery. PERFORMED BY: [facility] [address] [address] PATHOLOGIST INFORMATION ASSURANCE ENGINEER MARGO MINOR M.D. Performed By: #### C ALCULI #### [facility] , Photo Normal . [facility] Comment on above: Result Comment: Phot ograph will follow under a separate cover Performed By: #### C ALCULI #### [facility] , Size 6x6 Normal . [facility] Comment on above: Result Comment: Mult iple pieces received. Dimensions of the largest piece reported. Performed By: #### C ALCULI #### [facility] , Source Ureter Normal . [facility] Comment on above: Performed By: #### C ALCULI #### [facility] , Weight 110 Normal . [facility] Comment on above: Performed By: #### C ALCULI #### [facility] , ECG 12 lead ECGon 02-27-2021 ECG 12 lead ECG [facility] [place] [address] Electrocardiograph Report Signed Patient: Jam Toscano MR#: [id number] : 1965 Acct:[id number] Age/Sex: 55 / M ADM Date: 02/27/21 Loc: [place] Room: Type: [facility] Attending Dr: Rigo Gonzalez Jr, MD Ordering [...] DO 02/27/21 1110 Signed By: 02/27/21 1225 [facility] Mikey 02-27-2021 L ----- Specimen: [id number] Received: 02/27/21 Status: EMELI Flores Num: [id number] Spec Type: Surgical Subm Dr: Rigo Gonzalez Jr, MD, FACS Tissues: A Urinary Calculus (URETHRAL STONE) Procedures: Level 1 Gross Patient Age/Sex Location Account Attending Physician Jam Toscano 55/M [place] [id number] Rigo Gonzalez Jr, MD, FACS SPEC NUM: [id number] RECD: 02/27/21 STATUS: EMELI FLORES NUM: [id number] RADHA: 02/27/21- DR: Rigo Gonzalez Jr, MD, [...] Microscopic Description Gross examination only CPT Codes 47285 Specimen: [id number] Received: 02/27/21 Status: EMELI Flores Num: [id number] Spec Type: Surgical Subm Dr: Rigo Gonzalez Jr, MD, FACS Tissues: A Urinary Calculus (URETHRAL STONE) Procedures: Level 1 Gross Patient: Jam Toscano [id number] (Continued) Signed (signature on file) Silvestre Poon MD 02/28/21 1201 [facility] COVID-19 FRon 02-25-2021 SARS-CoV-2 (COVID-19) RNA BERNARDO+probe Ql (Unsp spec) Negative Normal Negative [facility] Comment on above: Order Comment: Healt hcare Worker?: N Result Comment: Ganesh earl: Negative Testing for SARS-CoV-2 by RT-PCR This test was developed and its performance characteristics determined by [employer] (BD) and validated at the [facility]. This test has not been FDA [...] is terminated or revoked sooner. PERFORMED BY: [place] [address] PATHOLOGIST INFORMATION ASSURANCE ENGINEER MARGO MINOR M.D. Performed By: #### C OVID-19 [facility] #### [address] COVID-19 Positive/Negativeon 02-25-2021 COVID-19 Positive/Negative Negative Negative [facility] Comment on above: Reference: NegativeT esting for SARS-CoV-2 by RT-PCRThis test was developed and its performance characteristics determined by [employer] ([employer]) and validated at the [facility]. This test has not been FDA [...] Otheron 02-25-2021 Coronavirus 2018 PCR Interp N/A [facility] XR ANKLE GENERAL 3V AP/LAT/O [...] 09:08-0400 Body weight 76.3 kg Nidia Weston APRN.MARKETING ASSISTANT RETAIL DIVISION Work Phone: [facility] 05-09-2024 09:08-0400 Diastolic blood pressure 79 mm[Hg] Nidia Weston APRN.MARKETING ASSISTANT RETAIL DIVISION Work Phone: [facility] 05-09-2024 09:08-0400 Heart rate 89 /min Nidia Weston APRN.MARKETING ASSISTANT RETAIL DIVISION Work Phone: [facility] 05-09-2024 09:08-0400 SaO2% (BldA) [Mass fraction] 97 % Nidia Weston APRN.MARKETING ASSISTANT RETAIL DIVISION Work Phone: [facility] 05-09-2024 09:08-0400 Systolic blood pressure 118 mm[Hg] Nidia Weston APRN.MARKETING ASSISTANT RETAIL DIVISION Work Phone: [facility] 03-14-2024 09:17-0400 Body mass index (BMI) [Ratio] 26.66 kg/m2 Nidia Weston APRN.MARKETING ASSISTANT RETAIL DIVISION Work Phone: [facility] 03-14-2024 09:17-0400 Body weight 74.9 kg Nidia Weston APRN.MARKETING ASSISTANT RETAIL DIVISION Work Phone: [facility] 03-14-2024 09:17-0400 Diastolic blood pressure 83 mm[Hg] Nidia Weston APRN.MARKETING ASSISTANT RETAIL DIVISION Work Phone: [facility] 03-14-2024 09:17-0400 Heart rate 97 /min Nidia Weston APRN.MARKETING ASSISTANT RETAIL DIVISION Work Phone: [facility] 03-14-2024 09:17-0400 SaO2% (BldA) [Mass fraction] 97 % Nidia Weston APRN.MARKETING ASSISTANT RETAIL DIVISION Work Phone: [facility] 03-14-2024 09:17-0400 Systolic blood pressure 121 mm[Hg] Nidia Weston APRN.MARKETING ASSISTANT RETAIL DIVISION Work Phone: [facility] Encounters Encounter Date Encounter Type Care Provider Facility Start: 05-22-2025 ambulatory Salmon Talal Sarmini Facility:[facility] Start: 12-14-2024 End: 12-14-2024 ambulatory Salmon Talal Fredomini Facility:[facility] Start: 11-21-2024 End: 11-23-2024 Telephone encounter Darrian Dubon MD Work Phone: Rheumatology Comment on above: Patient Update Start: 11-21-2024 End: 11-21-2024 ambulatory Marcin RAMÍREZ Facility:[facility] Start: 11-21-2024 End: 11-21-2024 ambulatory Marcin RAMÍREZ Facility: [facility] Start: 10-05-2024 End: 10-05-2024 ambulatory JOSE L LACKEY Facility:[facility] Start: 10-05-2024 End: 10-05-2024 Office [...] 06-13-2024 End: 06-13-2024 ambulatory Salmon Gonzálezal Fredomini Facility:[facility] Start: 06-03-2024 End: 06-03-2024 ambulatory Luis Antonio Talal Fredomini Facility:[facility] Start: 05-30-2024 End: 05-30-2024 ambulatory Salmon Talal Fredomini Facility:[facility] Start: 05-09-2024 End: 05-09-2024 ambulatory [place] Chair [...] 03-14-2024 Subsequent hospital visit by physician Xr [facility] Comment on above: Rheumatoid arthritis 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) [M05.79] Start: 03-14-2024 End: 03-14-2024 ambulatory NIDIA WESTON Facility:[facility] Start: 03-14-2024 End: 03-14-2024 Patient encounter procedure Nidia Weston APRN.MARKETING ASSISTANT [employer] DIV[employer] Work Phone: Rheumatology Comment on above: 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); Vitamin D deficiency; Other osteoporosis without current pathological fracture; Encounter for medication review and counseling Start: 03-04-2024 End: 03-04-2024 ambulatory Salmon Talal Sarmini Facility:[facility] Start: 03-02-2024 End: 03-02-2024 ambulatory Salmon Talal Sarmini Facility:[facility] Start: 02-26-2024 End: 02-26-2024 ambulatory Salmon Talal Sarmini Facility:[facility] Start: 02-11-2024 Telephone encounter Nidia retana APRN.MARKETING ASSISTANT [employer] DIV[employer] Work Phone: Rheumatology Start: 01-12-2024 End: 01-12-2024 ambulatory JOSE L M HOY Facility:[facility] Start: 01-12-2024 End: 01-12-2024 ambulatory OJSE L M HOY Facility:[facility] Start: 12-11-2023 End: 12-11-2023 ambulatory Salmon Talal Sarmini Facility:[facility] Start: 12-01-2023 End: 12-01-2023 ambulatory JOSE L M HOY Facility:[facility] Start: 12-01-2023 End: 12-01-2023 ambulatory JOSE L LACKEY Facility:[facility] Start: 11-27-2023 End: 11-27-2023 Emergency department patient visit Kavon Johnson Facility:[facility] Start: 11-04-2023 End: 11-04-2023 Emergency department patient visit Kavon Johnson Facility:[facility] Start: 10-23-2023 End: 10-23-2023 Emergency department patient visit Zoila Shirleybubba Facility:[facility] Start: 05-04-2023 Telephone encounter Nidia retana APRN.MARKETING ASSISTANT [employer] DIV[employer] Work Phone: Rheumatology Comment on above: Patient Update Start: 05-04-2023 End: 05-04-2023 ambulatory Nidia Weston APRN.MARKETING ASSISTANT [employer] Work Phone: Rheumatology Comment on above: Rheumatoid [...] 05-04-2023 Telemedicine consultation with patient Nidia Weston APRN.MARKETING ASSISTANT RETAIL DIVISION Work Phone: [facility] Start: 03-02-2023 End: 03-02-2023 ambulatory Nidia Weston APRN.MARKETING ASSISTANT [employer] Work Phone: Rheumatology Comment on above: 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); Encounter to discuss test results; Counseling on health promotion and disease prevention; Ulcerative pancolitis (HCC); Other osteoporosis without current pathological fracture Start: 03-02-2023 End: 03-02-2023 Telemedicine consultation with patient Nidia Weston APRN.MARKETING ASSISTANT RETAIL DIVISION Work Phone: [facility] Start: 02-11-2023 End: 02-12-[address] JOSE L LACKEY . Facility: Start: 01-14-2023 Telephone encounter Nidia retana APRN.MARKETING ASSISTANT [employer] Work Phone: Rheumatology Comment on above: Outside Lab Results (Vit D ) Start: 12-29-2022 End: 12-29-2022 ambulatory Nidia Weston APRN.MARKETING ASSISTANT [employer] Work Phone: Rheumatology Comment on above: 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); Vitamin D deficiency; Encounter to discuss test results; Encounter for medication review and counseling; Counseling on health promotion and disease prevention; Other osteoporosis without current pathological fracture Start: 12-29-2022 End: 12-29-2022 Telemedicine consultation with patient Nidia Villalobos Enrico MOSERMARKETING ASSISTANT RETAIL DIVISION Work Phone: [facility] Start: 11-24-2022 End: 11-25-[address] JOSE L LACKEY . Facility:[facility] Start: 11-06-2022 End: 11-07-[address] JOSE L LACKEY . Facility:[facility] Start: 09-24-2022 End: 09-24-[address] JOSE L LACKEY . Facility:[facility] Start: 09-23-2022 End: 09-23-2022 Subsequent hospital visit by physician Bone Density [facility] Comment on above: Other osteoporosis w ithout current pathological fracture [M81.8] Start: 02-10-2022 Telephone encounter Darrian Florez MD Work Phone: Rheumatology Comment on above: Results Start: 02-25-2021 End: 02-25-2021 Patient encounter procedure Rigo Gonzalez -Pre-Surgical Testing Start: 02-20-2021 End: 02-20-2021 Subsequent hospital visit by physician Xr [facility] Comment on above: Seropositive rheumat oid arthritis (HCC) [M05.9] Start: 08-22-2020 End: 08-22-2020 Subsequent hospital visit by physician Bone Density [facility] Comment on above: Rheumatoid arthritis 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) [M05.79] Procedures Date Procedure Procedure Detail Performing Clinician Start: 03-14-2024 Radex hand minimum 3 views Nidia Weston APRN.MARKETING ASSISTANT [employer] DIV[employer] Work Phone: Start: 01-12-2023 VITAMIN D 25 HYDROXY Am parmjit Weston APRN.MARKETING ASSISTANT RETAIL DIV[employer] Work Phone: Start: 09-23-2022 Dxa bone density [...] Author Start: 12-01-2026 Diabetes Screening Diabetes Screenin anjail [facility] Start: 06-06-2025 End: 06-06-2025 Patient encounter procedure Radiology Comment on above: Seropositive rheumat oid arthritis (HCC) [M05.9] Return for May 2025 for RA and OP and review of DXA. Start: 05-23-2025 End: 05-23-2025 ambulatory 05/23/2025 8:00 AM EDT Results Only [facility] [address] [place] [address] [place] [address] labs [facility] Comment on above: labs [...] Ulcerative pancolitis (HCC) Expected: 05/16/2025, Expires: 08/15/2025 [facility] Work Phone: Comment on above: Expected: [...] Office Visit Rheumatology [address] [place] [address] Darrian Dubon MD [address] [place] [address] Dubon Rheumatology Comment on above: future with dr. Vince melton Start: 10-05-2024 End: 10-05-2024 Patient encounter procedure 10/05/2024 7:20 AM EST Office Visit Rheumatology [address] [place] [address] Darrian Dubon MD [address] [place] [address] RA Rheumatology Comment on above: RA Start: [...] factor (HCC) Expected: 09/16/2024 (Approximate), Expires: 12/16/2024 [facility] Work Phone: Comment on above: Expected: [...] Start: 07-17-2024 Influenza vaccination C [facility] Start: 05-09-2024 End: 05-09-2024 ambulatory 05/09/2024 9:30 AM EDT [facility] [address] [place] [address] Return labs in 1 month, for reclast and ov in 1-2 months after labs Infusion Comment on above: Return labs in 1 thu, for reclast and ov in 1-2 months after labs Start: 05-09-2024 End: 05-09-2024 Patient encounter procedure 05/09/2024 9:00 AM EDT Office Visit Rheumatology [address] [facility] [place] [address] Nidia Weston, LABORER PLUMBING.MARKETING ASSISTANT RETAIL DIVISION [address] [facility] [address] Return labs in 1 month, for reclast [...] factor (HCC) Expected: 04/13/2024 (Approximate), Expires: 07/13/2024 [facility] Work Phone: Comment on above: Expected: [...] [place] Start: 08-22-2023 DIABETES SCREEN DIABETES SCREEN [facility] Start: 07-17-2023 Influenza vaccination [facility] Start: 07-04-2023 End: 09-03-2023 25-hydroxyvitamin D3 [Mass/volume] in Serum or Plasma VITAMIN D 25 HYDROXY Lab Routine Other osteoporosis without current pathological fracture Expected: 07/04/2023 (Approximate), Expires: 09/03/2023 [facility] Work Phone: Comment on above: Expected: 07/04/2023 (Approximate), Expires: 09/03/2023 Start: 07-04-2023 End: 09-03-2023 MONOCLONAL PROT UR W/INTERP MONOCLONAL PROT UR W/INTERP Lab Routine Elevated serum immunoglobulin free light chain level Expected: 07/04/2023 (Approximate), Expires: 09/03/2023 [facility] Work Phone: Comment on above: Expected: 07/04/2023 (Approximate), Expires: 09/03/2023 Start: 07-04-2023 End: 09-03-2023 Renal function 2000 panel - Serum or Plasma RENAL FUNCTION PANEL Lab Routine Other osteoporosis without current pathological fracture Expected: 07/04/2023 (Approximate), Expires: 09/03/2023 [facility] Work Phone: Comment on above: Expected: 07/04/2023 (Approximate), Expires: 09/03/2023 Start: 12-29-2022 End: 02-28-2023 25-hydroxyvitamin D3 [Mass/volume] in Serum or Plasma VITAMIN D 25 HYDROXY Lab Routine Vitamin D deficiency Expected: 12/29/2022, Expires: 02/28/2023 [facility] Work Phone: Comment on above: Expected: [...] [place] Start: [address] COLONOGRAPHY [facility] Start: 2009 FECAL OCCULT BLOOD FECAL OCCULT BLOO D [facility] Start: 2009 Screening for malign ant neoplasm of colon [facility] Start: 2009 SIGMOIDOSCOPY SIGMOIDOSCOPY [facility] Start: 1999 Lipid panel Lipid Screening [facility] Start: 1999 LIPID SCREEN LIPID SCREEN [facility] [...] [facility] Start: 1982 HIV SCREENING HIV SCREENING [facility] Start: 1982 HIV screening HIV Screening [facility] Start: 1982 MMR Vaccine (1 of 2 [...] 1 Occurrences starti ng 10/05/2024 until 11/04/2025 [facility] Immunizations Immunization Date Immunization Notes Care Provider Feng diaz 06-09-2022 zoster vaccine recombinant Nidia Enrico LABORER PLUMBING.MARKETING ASSISTANT [employer]AIL DIV[employer] Work Phone: [facility] 03-17-2022 zoster vaccine recombinant Nidia Enrico LABORER PLUMBING.MARKETING ASSISTANT RETAIL DIVISION Work Phone: [facility] 09-27-2020 Influenza, injectabl e, Madin [place] Canine Kidney, preservative free, quadrivalent Nidia Enrico LABORER PLUMBING.MARKETING ASSISTANT RETAIL DIVISION Work Phone: [facility] 09-27-2020 influenza virus vacc ine, unspecified formulation Nidia Weston LABORER PLUMBING.MARKETING ASSISTANT RETAIL DIVISION Work Phone: [facility] 10-28-2019 Influenza, injectabl e, Madin [place] Canine Kidney, quadrivalent with preservative Darrian Dubon MD Work Phone: [facility] 08-29-2019 influenza, injectabl e, quadrivalent, preservative free Nidia Weston LABORER PLUMBING.MARKETING ASSISTANT RETAIL DIVISION Work Phone: [facility] 08-15-2016 influenza, injectabl e, quadrivalent, preservative free Darrian Dubon MD Work Phone: [facility] 12-08-2015 hepatitis A and hepa titis B vaccine Darrian Dubon MD Work Phone: [facility] 11-01-2015 pneumococcal conjuga te vaccine, 13 valent Darrian Dubon MD [facility] Phone: [facility] [...] Date Payer Category Payer Medicare DEVOTED MEDICARE [facility] [id number] 2021-Present [phone] [address] [place] [address] O [id number] 2021 Unknown [id number] 2011 Medicare [id number]. [id number] 1964 Unknown [id number] 2.16.840.1.722468.3.579. 2.593 1964 Unknown [id number] 2.16.840.1.797872.3.579. 2.593 1964 Unknown [id number] 2.16.840.1.695180.3.579. 2.593 1964 Unknown [id number] 2.16.840.1.415211.3.579. 2.593 1964 Unknown [id number] 2.16.840.1.440213.3.579. 2.1259 1964 Unknown [id number] 2.16.840.1.061728.3.579. 2.1259 1964 Unknown [id number] 2.16.840.1.497190.3.579. 2.1259 1964 Unknown [id number] 2.16.840.1.723183.3.579. 2.1259 1964 Unknown [id number] 2.16.840.1.519965.3.579. 2.727 1964 Unknown [id number] 2.16.840.1.967367.3.579. 2.727 1964 Unknown [id number] 2.16.840.1.728498.3.579. 2.727 1964 Unknown [id number] 2.16.840.1.092087.3.579. 2 1964 Unknown [id number] 2.16.840.1.599913.3.579. 2 1964 Unknown [id number] 2.16.840.1.737427.3.579. 2 1964 Unknown [id number] 2.16.840.1.770209.3.579. 2 1964 Unknown [id number] 2.16.840.1.402664.3.579. 2 1964 Unknown [id number] 2.16.840.1.273555.3.579. 1964 Unknown [id number] 2..840.1.798272.3.579. 2 1964 Unknown [id number] 2..840.1.147106.3.579. 2 1964 Unknown [id number] 2.16.840.1.446215.3.579. 2 1964 Unknown [id number] 2.16.840.1.570267.3.579. 2 1964 Unknown [id number] 2.16.840.1.413611.3.579. 2 1964 Unknown [id number] 2.16.840.1.423384.3.579. 2 1964 Unknown [id number] 2.16.840.1.651205.3.579. Private Health Insurance Self Pay [id number] Self-pay Self Pay [id number] Social History Date Type Detail Facility Tobacco smoking stat [facility] Unknown if ever smoked [facility] Start: 1965 Sex Assigned At Male F [facility] Start: 01-24-2020 End: 12-01-2023 Tobacco smoking [...] Sex Assigned At Not on file C [facility] Start: 01-19-2022 End: 01-29-2022 Exposure to SARS-CoV-2 (event) Unable to assess [facility] History of tobacco use Current smoker [facility] Start: 01-24-2020 End: 05-04-2023 History of Social function [facility] Start: 01-24-2020 End: 05-04-2023 Alcohol Use Disorder Identification Test - Consumption [AUDIT-C] [facility] How often to you hav e a drink containing alcohol? Never [facility] Average Number of Drinks Not on file [facility] Start: 07-23-2020 End: 02-20-2021 Exposure to [...] Please offer appt with Dr Dubon or RECOVERY UNIT OPERATOR, if patient still interested. Thank you [...] apt with me or any rheum ANGÉLICA (RECOVERY UNIT OPERATOR or PA) who has opening soon. thank you kindly, fa -Pt returning call to office. Pt identified by name and date. Pt given message as detailed below and verbalized understanding. -States the only trauma/injury he has experienced recently is that he stubbed his RT middle toe 3 days ago. 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 Denies any change in [...] Jordyn KELLER November 23, 2024 9:03 AM [facility] 11-23-2024 Telephone encounter Note Please offer appt with Dr Dubon or RECOVERY UNIT OPERATOR, if patient still interested. [facility] 11-22-2024 Telephone encounter Note Thank you [...] apt with me or any rheum ANGÉLICA (RECOVERY UNIT OPERATOR or PA) who has opening soon. thank you kindly, fa [facility] 11-22-2024 Note Urology Office/Clini c Note Chief Complaint referral HPI Staff 59yr old male referred by Dr. Lackey for kidney stones w/ KUB. KUB done at [facility] on 11/14/24. Pt has seen Dr. Gonzalez [...] [facility] [address], [place] [address]- Additional Instructions: f/u pending CT Patient Education [...] Gross hematuria Hea (more content not included)... [facility] Comment on above: Result Comment: [...] toe 3 days ago. 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 Denies any change in [...] ? 8 oz (237 mL) of milk, lhlqzsx-ravlwyerkoqv-yixga milk, and calcium-fortifiedfruit juice. Calcium-fortified means that [...] Spinach (cooked), rhubarb, beets, sweet potatoes, and Vietnamese chard. ? Peanuts. ? Potato chips, nepali fries, and baked potatoes with skin on. ? Nuts and nut products. ? Chocolate. ??? If you regularly take a diuretic medicine, make sure to eat at least 1 or 2 servings of fruits or vegetables that are high in potassium each day. These include: ? Avocado. ? Banana. ? [place], prune, carrot, or tomato juice. ? Baked [...] fish oil, or vitamin B6. ??? Take yfwf-hob-pmvhpfy and prescription medicines only as told by your health (more content not included)... [facility] 11-21-2024 Telephone encounter Note Left message requesting [...] had before ? thank you kindly, fa [facility] 11-21-2024 Telephone encounter Note Images from [...] not completely. Pain: Bilateral feet/fingers/shoulders Please advise [facility] 10-05-2024 Instructions Darrian Dubon MD - 10/05/2024 7:56 AM EST -PLEASE NOTE THAT WE REVIEW ALL YOUR TEST RESULTS AT YOUR NEXT FOLLOW UP VISIT WITH YOU. IF ANY ABNORMAL LAB REQUIRES SOONER ATTENTION, WE WILL CONTACT YOU. -If you have signed up on too.me, we will release your test results through too.me. I wish you the best of health [...] track your nutrition and calcium intake on www.[employer].Context Relevant This provides macro and micronutrient intake and requirements. - You can track your calcium intake on [employer] or any other calcium tracker of your [...] youtube and copy and paste this link: [email or web address].[email or web address] This is done by a Physical Medicine and Rehab doctor who is a statistics professor in [employer]. She completed a PhD at the [employer]. I hope you find it helpful. Please [...] hazelnuts, legumes, soybeans and other beans) - [place] (potatoes, avocados, almonds, peanuts) - Chromium (broccoli, [...] Eur J Clin Nutr 62, 155-161 (2007). https://doi.org/10.1038/sj.ejcn.470569 8 -Clyde Rosa, Trisha Lara, Bar De Leon et al. Isoflavone intervention and its impact on bone mineral density in postmenopausal women: a systematic review and meta-analysis of randomized controlled trials. Osteoporos Int (2022). https://doi.org/10.1007/m60354-725-561 44-y -Jack Finch, Trisha Lara, Andrez Grant. et al. Effects of isoflavone interventions on bone mineral density in postmenopausal women: a systematic review and meta-analysis of randomized controlled trials. Osteoporos Int 31, 6907-4418 (2020). https://doi.org/10.1007/v41794-621-238 76-z - Benefits of consuming soy in whole foods are listed in this article at the PCR website: https://www.pcrm.org/good-nutrition/nu trition-information/vij-yuw-nxpxbv - Prunes have been reported to help [...] Am J Clin Nutr. 2021Aug 21;116(4):897-910. doi: 10.1093/ajcn/qkmq358. PMID: 84851598. -Benefit to bone density and inflammation: Hebert WYMAN, Perrin, Glory SOLARES, Sivakumar ALDANA, Trey CUBA. The Role of Prunes in Modulating Inflammatory Pathways to Improve Bone Health in Postmenopausal Women. Adv Nutr. 2021Aug 17;13(5):7167-9008. doi: 10.1093/advances/xvwf629. PMID: 86177231; PMCID: [id number]. - Information on Vitamin K2: more recently [...] with the exception of Natto (a traditional Telugu food made from fermented soybeans) has high [...] of these foods, please consult with your Marketing Community Liaison or Physician first. Review of Osteoporosis medications [...] in the office. This medication is given alf, indefinitely. Prolia should not be discontinued without [...] looked into transition therapy. Recent study from [facility] Slim et al, 04/11/2020 (PMID: 93160073.The study is ongoing, clinicaltrials.gov; [id number]), reported one infusion of IV Reclast did [...] initiated in patients who have had an GA or stroke in the preceding year or those considered high risk. We may need a clearance from a Natural Gas Inspector prior to proceeding with this medication in [...] and the different available medications at the [employer] website at: https://www.rheumatology.org/I-Am-A/Ernesto greennt-Caregiver/Diseases-Conditions/Os [...] Osteoporosis Foundation) http://www.osteo.org/osteolinks.asp National Institutes of Health: 9-959-256-BONE The Calcium Information Center: Non-Dairy, Plant based Milk, can contain in1 glass up to 450 mg of calcium (300 to 450 mg) Exampled include Oat Milk, Flax Milk, Tempe Milk, Cashew Milk, Soy Milk, Peas Milk Examples of Food Sources of Calcium from NIH Food Milligrams (mg) per serving Percent DV* Soymilk, calcium-fortified, 8 ounces 299 30 Maricao juice, calcium-fortified, 6 ounces 261 26 Tofu, firm, made with calcium sulfate, cup* 253 25 Tofu, soft, made with calcium sulfate, cup* 138 14 Qadkm-wz-lgp cereal, calcium-fortified, 1 cup 100-1,000 10-100 Turnip greens, fresh, boiled, cup 99 10 Kale, raw, chopped, 1 cup 100 10 Kale, fresh, cooked, 1 cup 94 9 Mauritanian cabbage, bok marin, raw, shredded, 1 cup 74 7 Bread, white, 1 slice 73 7 Tortilla, corn, xaodi-xy-dgdr/marshall, one 6 diameter 46 5 Tortilla, flour, fimvi-fj-deqx/marshall, one 6 diameter 32 3 Bread, whole-wheat, [...] daily with a meal; Certain patients require 5448-8051 international units daily and in patients deficient [...] bones. Studies show approximately 50% of [place] men and women are vitamin D deficient [...] [facility] Osteoporosis Information: https://my.[facility].org/departm ents/orthopaedics-rheumatology/depts/o steoporosis-metabolic The Bone Health and Osteoporosis Foundation (formerly the National Osteoporosis Foundation) : https://www.bonehealthandosteoporosis. org International Osteoporosis Foundation: https://www.osteoporosis.foundation http://ods.od.nih.gov/factsheets/vitam ind.asp National Institutes of Health: 9-972-174-BONE The Calcium Information Center: I recommend following [...] track your nutrition and calcium intake on www.Single Touch Systems.Context Relevant This provides macro and micronutrient intake and [...] that features the Whole Plant Based diet, Biddle over knives (see video online and visit website). Another movie that was recently released is: Eating You Alive (you can find it at Jarvam) and The Skill-Life ChangeOceanea movie Dr. Fauzia Ansari is a [facility] physician who has done research and published books, is an expert in Whole Plant based diet for prevention and reversal of heart disease. His website is Solutionary. 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 Rock Velazco's Program for Reversing Diabetes, Your Body in Balance You can also watch YouTube channel : The Doc & Accountancy Professor Dr. Anthony Carlson has shown the benefit of a starch based whole food plant based diet to his Rheumatoid Arthritis patients, as well as patient with diabetes II, hypertension, obesity, multiple sclerosis, heart disease, acne, and other, his website: www.Probity.Context Relevant Dr. Yayo Allred is a renowned neuroscientist, who has studied and researched the benefits of the Whole plant based diet. He has also researched the adverse effects of animal proteins on health. He presents many of his research findings in his book The [place] study. Dr. Gerber Becker has completed many research trials proving the reversal of diseases, such as heart disease and early prostate cancer, with healthy lifestyle and the Whole Plant based diet. Dr. Gerber Becker website is: www.carmenU-NOTE.Context Relevant His new book: Undo It, has evidence [...] videos and YouTube, for example https://youtu.be/aSgNkhgVtks and https://youVital Therapiesu.be/lXXXygDRyBU. He has written multiple books including: How Not To and How Not To Diet He is now working on his next book: How Not To Age Dr. Danitza Dash (from the [facility]), has articles on the following website: Algolytics For additional ideas on recipes, you could find additional information on practical to follow recipes by reading or watching online and YouTube such as: Accountancy Professor AJ, Cooking With Plants, The Vegan Corner (recipes from an Mexican Accountancy Professor), The Whole Foods Plant Based Cooking Show and visiting the provided websites for additional information on the whole plant based benefit and cooking recipes. You can also consider watching the vlogs of some of the plant based Athletes such as Graeme Kamara, Agustin Lundy on RivalSoft. You can find very good recipes for [...] Dr. Jenny Degroot Lifestyle Medicine (is a Natural Gas Inspector and Lifestyle Medicine Physician) -Sometimes it helps to start with a simple diet of potatoes, that Dr. Carlson calls Yarelis Carrie. You can learn more about that in his website: www.Spectral Image This is the website for Yarelis Carrie pdf : https://www.Wysada.com.Context Relevant/wp-content /uploads//Georgiana-Carrie_Website_Pr int_Version-1.pdf You can also read more on Dr. Carlson's website - When you goal is to lose weight, it is important to listen to your hunger cues. Don't eat until you are stuffed. As soon as you feel you are no longer hungry, stop eating. There is a Telugu saying that says Tammie Vega, meaning eat until you are 80% full. I say avoid eating past 80% of your stomach fullness. This originated from the city of [facility], which is one of the sites reported in the [place] book, one of the highest cities in the world for having the most centenarians. Remember your stomach needs space and capacity for proper digestion of your food. Like a fast food manager or a liquor blender, they have a limit for proper function, and should not be filled to the top. You can read more about that from the [facility] article Don t Eat Until You re Full ? Instead, Mind Your [place]ammie [place] , at https://health.[facility].org/don r-zty-txgou-fbkqp-irzl-yyjripr-mind-yo dn-hdyl-zdvsb-salvador-annie/ Most plants contain proteins and all essential [...] you will need to consult with a warehouse administrative assistant to have further evaluation to exclude Celiac [...] - Gentle Yoga Anyone Can Do Anywhere www.Dolosys.Context Relevant/yoga Also on youtube: yoga with Karlie For women, especially after menopause, strength training is important. You can read more on that from Clare Morley, PhD at her website https://www.CleanEdison and YouTube videos. If you are a beginner, it is best to start with a physical therapist or representative personal service. There are also several Aps that offer [...] [facility] Website on : https://my.[facility].org/departm ents/wellness/store/go-well#sleep-tab 4- Stress management, be happy, [...] [facility] website at : https://my.[facility].org/departm ents/wellness/store/go-well#stress-iron e-tab There are many free youtube videos on guided meditation as well For Breathing techniques: You can watch John Carlisle and learn the breathing technique and its benefits by watching the following YouTube: https://Efficiency Exchange.be/3Uu3W-PGs37?si=-Xtdfr 4UpsJOUbDU. Learning about your awareness/spiritual being, is [...] work with a psychotherapist or behavioral health financial wellness coach. When having a psychiatric condition, it [...] or a higher dose. Raw: Garlic, Cilantro, Sandy nuts, Pumpkin seeds, Rockbridge seeds and Flax seed powder have been reported to help with certain metal detoxification such as mercury. [place]-3 plant based rich foods are good anti-inflammatory [...] the Whole Plant Based Diet, by watching Biddle over BetaUsersNow.com movie and then review website. There are many other resources and educational information on the Whole plant based diet on the Internet and documentaries. There are other resources for wellness that you can also benefit from, such as the [facility] Wellness website, owatonnaclinic.org and includes Plant based and Mediterranean diet, yoga and meditation. Please avoid all dairy products. You could use non-dairy milk such as Flax milk, Cashew milk, Tempe milk, Rice milk, Oat milk or Hemp [...] below, just add the ingredients to your liquor blender and blend: - Probably the healthiest smoothie is one that contains mostly green leafy vegetables (especially containing kale), some berries, flax seed and water. This might not turn laster to be sweet. You can add one or two pitted dates or a frozen banana for natural sweetness. Examples of healthy green smoothies, pack your liquor blender (at least half way to 3/4) with a mix of green leafy veggies, then top your liquor blender with fruits (such as banana or [...] risk for kidney stones. The same with thai chards and beet leaves. If you don't [...] [facility] Note HNO ID: [id number] Author: DARRIAN DUBON MD Service: ? Author Type: Physician Type: Progress Notes Filed: 10/16/2024 19:47 Note Text: FOLLOW UP VISIT Patient's Name: Jam Erwin [facility] [id number] PCP: Jose L Lackey MD [address] [place] [address] Consult Requested by: Jose L Lackey MD [address] [facility] [address] Other physicians: Hospice Care Consultant prevBrittney Lebron MD (his prev. warehouse administrative assistant left- Ronald Brown MD) ; Now following [...] No stiffness He is on sulfasalazine per warehouse administrative assistant for his UC and this has been controlling his RA He is pleased with his treatment regimen He also states that his IBD is well controlled, states told is in remission, on Entyvio Doing exercise and working with representative personal service at the gym and will be going [...] in IBD and is following with local warehouse administrative assistant for that. Has been on Humira since Sep 2020 (started with 80 mg loading dose and since has been on 40 mg every 2 wks) He was pleased with Enbrel response to his RA and later was switched to Humira, reports has similar benefit and is pleased with response. His warehouse administrative assistant switched him to Humira for optimal mgt of IBD and he feels this has helped his IBD better. Reports still gets 8 BM's a day, does not have BM at night, does not have to wake up from sleep. Has been following with his warehouse administrative assistant for his UC Had colonoscopy 11/22/2021 with reported marked improvement in asc/transv/desc colon and severe active in rectum, histopath with active colitis with erosions. States Dr. Lebron has started him on rectal enemas. Recent colonoscopy with reported active colitis. He tells me that he continues to have multiple BM's; His warehouse administrative assistant prescribed pred. course, completed recently. No jt [...] us, he is on Humira per his Hospice Care Consultant He is off Enbrel, was switched to Humira by his warehouse administrative assistant. (previously was on Enbrel 25 mg twice a wk and has been in remission since on Enbrel and very pleased with his treatment regimen) He is on Humira 40 mg every 2 wks by his Hospice Care Consultant He is on sulfasalazine, Humira and mesalamine enemas per his warehouse administrative assistant I have reviewed benefits of a whole food plant based diet He consumes dairy, cheese, sausage, hamburger. I have advised him on avoiding meats and dairy and reviewed reports and patient experience with flare of IBD and RA, as well as gastrointestinal dysbiosis. I advised him on a whole foods plant based diet. He has a liquor blender (CloudOn) and interested in making healthy smoothies and [...] ad (more content not included)... [facility] 10-05-2024 History of Present illness Narrative Images from the original note were not included. FOLLOW UP VISIT Patient's Name: Jam Erwin [facility] [id number] PCP: Jose L Lackey MD [facility] [place] [address] Consult Requested by: Jose L Lackey MD [address] [facility] [address] Other physicians: Hospice Care Consultant prev. Nel Lebron MD (his prev. warehouse administrative assistant left- Ronald Brown MD) ; Now following [...] No stiffness He is on sulfasalazine per warehouse administrative assistant for his UC and this has been controlling his RA He is pleased with his treatment regimen He also states that his IBD is well controlled, states told is in remission, on Entyvio Doing exercise and working with representative personal service at the gym and will be going [...] in IBD and is following with local warehouse administrative assistant for that. Has been on Humira since Sep 2020 (started with 80 mg loading dose and since has been on 40 mg every 2 wks) He was pleased with Enbrel response to his RA and later was switched to Humira, reports has similar benefit and is pleased with response. His warehouse administrative assistant switched him to Humira for optimal mgt of IBD and he feels this has helped his IBD better. Reports still gets 8 BM's a day, does not have BM at night, does not have to wake up from sleep. Has been following with his warehouse administrative assistant for his UC Had colonoscopy 11/22/2021 with reported marked improvement in asc/transv/desc colon and severe active in rectum, histopath with active colitis with erosions. States Dr. Lebron has started him on rectal enemas. Recent colonoscopy with reported active colitis. He tells me that he continues to have multiple BM's; His warehouse administrative assistant prescribed pred. course, completed recently. No jt [...] us, he is on Humira per his Hospice Care Consultant He is off Enbrel, was switched to Humira by his warehouse administrative assistant. (previously was on Enbrel 25 mg twice a wk and has been in remission since on Enbrel and very pleased with his treatment regimen) He is on Humira 40 mg every 2 wks by his Hospice Care Consultant He is on sulfasalazine, Humira and mesalamine enemas per his warehouse administrative assistant I have reviewed benefits of a whole food plant based diet He consumes dairy, cheese, sausage, hamburger. I have advised him on avoiding meats and dairy and reviewed reports and patient experience with flare of IBD and RA, as well as gastrointestinal dysbiosis. I advised him on a whole foods plant based diet. He has a liquor blender (CloudOn) and interested in making healthy smoothies and [...] in this patient with known rheumatoid arthritis. Fitting Room Inspector: CODY Transcribe Date/Time: Feb 20 2021 9:52A [...] site where has fallen arch. Has seen Teacher Private in the remote past for the fallen arch, not recently. Feels gets stiff when not moving as much. Denies any injury or trauma. Denies any pain to me today States his warehouse administrative assistant has prescribed prednisone course due to IBD flare States after scope was told is flared. He is on sulfasalazine and budesonide and his warehouse administrative assistant and since has switched him from Enbrel [...] Alk phos isoenz: liver fraction; followed by warehouse administrative assistant He follows with his warehouse administrative assistant for hi elev alk phos and AST and for bld with stools, Dr Brown: and states he started him on iron supplement States Dr. Brown prescribed metronidazole, for reported diarrhea. States felt it made a difference. States he gave him enemas and told that is for his ulcerative colitis and prescr. sulfasalazine. In 2019, has also followed with his warehouse administrative assistant for blood with stools, and had flex sig and told he was inflamed from his Ulcerative colitis. [facility] had colonosc and EGD in 2018 [...] systems reviewed and are negative DXA Model: Locappy W [id number] SITE SCANNED: Lumbar spine and left hip [...] were all normal. He follows with his warehouse administrative assistant for his ulcerative colitis and is on sulfasalazine. He was told by his warehouse administrative assistant to avoid sun exposure due to this med, had skin itching last summer. He had evaluation for elevated AST and alk phos. Alk phos has improved and AST has been borderline elevated. I have advised him to f/u with his warehouse administrative assistant for his elevated alk phos (liver fraction) States his warehouse administrative assistant did an US of his liver twice and was told was normal. He denies any alcohol consumption or acetaminophens. His isoenzyme indicated predom. of liver origin. The patient reports that his warehouse administrative assistant completed evaluation and told his liver is fine. His liver US was unremarkable . His anemia has resolved since his UC has been controlled. States saw his warehouse administrative assistant, Dr. Lebron, recently and states told him [...] and denies hematuria or dysuria. DXA Model: Locappy W [id number] SITE SCANNED: Lumbar spine and left hip [...] states not bad . has seen a almond paste mixer in the past, in [place], Dr. Whitfield. States used to be on [...] 500mg q 6hrs. Reports benefit and his warehouse administrative assistant took him off the iron supplement as [...] Dactylitis: no H/o precedent/frequent infection(s): as above Enthesopathy/Wynnewood's/heel/plantar tenderness: no Skin thickening, psoriasis, photosensitivity, purpura: no Nail changes: no Alpecia, patchy: no; has MPB Eye inflammation: no SICCA: no Oral/nasal/genital ulcers: no GI problems-diarrhea/bleeding/IBD/Gluten intolerence/Dysphagia: as above Raynaud's phenomenon/digital ulcers: no Organ inv-Serositis: no Lung disease/ILD: no Myopathy/proximal muscle weakness: no Abnormal Urine or urethritis: no Renal disease: no COMPLIANCE TESTER/PNS disease: no and denies MS HEME-Cytopenias/LAD/Clots: iron [...] Marital Status: Single denies children 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 Lackey Smoking: quit 2012 Alcohol as above IVDU: denies Industrial toxic exposures: denies FAMILY HISTORY: No family history on file. suspects his mother may have had RA Mother: CAD, CABG, COPD/emphysemia Father: passed from [facility] bother were smokers PERTINENT TESTS: Component Latest [...] Abs Lymph 1.00 - 4.00 k/uL 3.02 Galax% 9.7 Abs Galax 0.00 - 0.86 k/uL 0.79 Eosin% 0.0 [...] Negative Negative Ketones, Urine Negative Negative Specific [place], Ur 1.005 - 1.030 1.008 Hemoglobin/Blood,Ur Negative 3+ (A) pH, Urine 4.5 - 8.0 6.0 Protein, Urine Negative mg/dL Negative Urobilinogen Normal Normal Nitrites Negative Negative Leukest Negative Negative Comments SEE COMMENT Urine Adan Comment SEE COMMENT WBC, Urine 0 - 5 /HPF 0-5 RBC, Urine 0 - 3 /HPF >25 (A) Sm Antibody <1.0 AI <0.2 CONSTRUCTION SUPERVISOR/CARPENTER Antibody <1.0 AI 1.2 (H) SSA Antibody <1.0 AI <0.2 SSB Antibody <1.0 AI <0.2 Centromere Ab <1.0 AI <0.2 Scleroderma Ab, IgG <1.0 AI <0.2 Milagro 1 Antibody <1.0 AI <0.2 Ribosomal CONSTRUCTION SUPERVISOR/CARPENTER <1.0 AI <0.2 Chromatin Antibody <1.0 AI [...] <12 Sm Antibody <1.0 AI <0.2 Ribosomal CONSTRUCTION SUPERVISOR/CARPENTER <1.0 AI <0.2 Chromatin Antibody <1.0 AI <0.2 SSA Antibody <1.0 AI <0.2 SSB Antibody <1.0 AI <0.2 CONSTRUCTION SUPERVISOR/CARPENTER Antibody <1.0 AI 1.2 Scleroderma Ab, IgG [...] FINDINGS CONSISTENT WITH CHRONIC SEVERE RHEUMATOID ARTHRITIS. Fitting Room Inspector: KETTY Transcribe Date/Time: Aug 29 2015 12:56P ... Last XR Ankle - Impression Only XR ANKLE GENERAL 3V AP/LAT/OBL LT Exam End: 02/20/2021 8:42 AM (Final result) Impression: IMPRESSION: Arthritic changes demonstrating interval progression in this patient with known rheumatoid arthritis. Fitting Room Inspector: CODY Transcribe Date/Time: Feb 20 2021 9:52A [...] by [facility] [place] ([facility]). It has not been cleared or approved by the FDA. [facility] is regulated under CLIA as qualified [...] 147 53 - 334 mg/dL Final MPA [place], Serum Date Value Ref Range Status 08/19/2018 1,020 534 - 1,267 mg/dL Final MPA Lambda, Serum Date Value Ref Range Status 08/19/2018 551 253 - 653 mg/dL Final MPA [place]/Lambda Ratio Date Value Ref Range Status 08/19/2018 [...] , Gender: Male SCANNER INFORMATION: DXA Model: Locappy W [id number] SITE SCANNED: Lumbar spine and left hip [...] machine for accurate comparison. FOR MORE INFORMATION: [facility] Osteoporosis and Metabolic Bone Disease: www.ccf.org/arthritis/osteo National Osteoporosis Foundation: www.nof.org International Society of Clinical Densitometry www.iscd.org Fitting Room Inspector: [id number] Transcribe Date/Time: Sep 23 2022 10:28A Dictated [...] involving multiple sites with positive rheumatoid factor ([facility]) Z79.899 On sulfasalazine therapy K51.00 Ulcerative pancolitis ([facility]) Comment: On SSZ and Entyvio, [...] in patient's severe chronic Rheumatoid Arthritis. His warehouse administrative assistant has switched him to Humira as he [...] to receive intermittent steroid therapy from his warehouse administrative assistant. Pharmacologic therapy is still indicated and recommended, [...] Also received labs per Primary care physician, Hospice Care Consultant -The patient's warehouse administrative assistant follows him for his UC, anemia and liver tests. He is on Entyvio and sulfasalazine per his Hospice Care Consultant RA med: none from rheum, doing well on sulfasalazine, prescribed by GI (He was prev. on Enbrel 25 mg sq twice a week, or may switch to Humira if his warehouse administrative assistant switched him to Humira TNF inhibitor therapy, [...] on sulfasalazine for his IBD per his warehouse administrative assistant OP med: Received Reclast infusion, 5 mg IV on 05/09/2024 well tolerated Further infusions will be determined based on recheck DXA and CTX, or if on systemic steroids. As previously discussed, his OP med of choice is IV Reclast Oral bisphosphonate contraindicated due to his IBD and gastrointestinal disease. Osteoporosis was likely due to previous alf steroid therapy by other physicians over the [...] atypical and subtroch. fracture of femur with termite treater helper use of bisphosphonates/alendronate and anti-resorptive agents, there [...] wished to proceed. Previous orders -CONSULT TO PETROLEUM GEOLOGY FACULTY MEMBER -CONSULT TO PODIATRY Provided referral to OT for assistive devices, exercises to preserve left function Referral to toll transmission worker for foot/ankle deformities and callus care, inserts/braces/orthotics, [...] which included preparing to see the patient, aknu-qa-ykeg patient care, completing clinical documentation, obtaining and/or [...] appropriate immunization recommended. -Continued follow up with warehouse administrative assistant for IBD management and monitoring for liver [...] Fischer MD Jose L Lackey MD [address] [facility] [address] documented in this encounter [facility] 06-03-2024 Note Progress Note-Physic sumaya Patient: JAM TOSCANO Age: 59 years Sex: Male : 1965 Associated Diagnoses: None Author: Kody Ramos Jr., DO Postoperative Information Postoperative disposition: Postoperative disposition: Home. Optimetrix number: Optimetrix number [id number]. Anesthetic utilized: General. Physical Examination Vital Signs [...] Ambulatory Surgery Unit, and To home ). [facility] Comment on above: Result Comment: Elec tronically Signed By: Koyd Ramos Jr., DO\.br\Date and Time Signed: 06/03/24 [...] unsweetened, w/added ascorbic acid 1 cup 0.5 Maricao 1 cup 0.7 Vegetables Cooked Green beans 1 cup 4.0 Carrots 1/2 cup sliced 2.3 Peas 1 cup 8.8 Potato (baked, with skin) 1 medium potato 3.8 Raw Madison (with peel) 1 cucumber 1.5 Lettuce 1 [...] Peanuts 1/2 cup 7.9 [facility] (more content not included)... [facility] 06-03-2024 Note Colonoscopy Procedur e Report Patient: JAM TOSCANO Age: 59 years Sex: Male : 1965 Associated Diagnoses: None Author: Asim Jaquez MD Pre-Procedure Procedure Date 06/03/2024 10:42:00 . Procedure Type: Colonoscopy with removal of tumor(s), polyp(s), or other lesion(s) by cold snare technique. Procedure provider Performed by Asim Jaquez MD. Current history and physical Documented on chart. Colonoscopy ([id number]) on 02/26/2024 at 58 Years. Colonoscopy ([id number]) on 03/23/2023 at 57 Years. Cystoscopy ([id number]) on 02/04/2021 at 55 Years. Colonoscopy ([id number]). right hip replacement (894040613). replacement on both knees (061999050). Hernia repair (80473206).. Past Medical History Resolved Extreme obesity ([id number]) : Resolved. Ulcerative colitis (693200015): Resolved.. Family History . Procedure History Colonoscopy ([id number]) on 02/26/2024 at 58 Years. Colonoscopy ([id number]) on 03/23/2023 at 57 Years. Cystoscopy ([id number]) on 02/04/2021 at 55 Years. Colonoscopy ([id number]). right hip replacement (828920637). replacement on both knees (757735018). Hernia repair (62166388).. Colorectal neoplasm risk assessment High risk Previous [...] (Inserted Image. Perla (more content not included)... [facility] Comment on above: Other Comment: Sheila trinh Attachment - attachment storage system not supported [id number] Can be [facility] Attachment - attachment storage system not supported [id number] Can be viewed in [facility] Attachment - attachment storage system not supported 2476305 Can be viewed in [facility] Attachment - attachment storage system not supported [id number] Can be viewed in [facility] Attachment - attachment storage system not supported [id number] Can be viewed in [facility] Attachment - attachment storage system not supported [id number] Can be viewed in [facility] Attachment - attachment storage system not supported 8295149 Can be viewed in [facility] Attachment - attachment storage system not supported 2235163 Can be viewed in [facility] Attachment - attachment storage system not supported 0623141 Can be viewed in [facility] Attachment - attachment storage system not supported 1588239 Can be viewed in [facility] Attachment - attachment storage system not supported 7772936 Can be viewed in source [facility] Attachment - attachment storage system not supported [id number] Can be viewed in [facility] Attachment - attachment storage system not supported [id number] Can be viewed in source systemMissre[facility] Attachment - attachment storage system not supported 7304422 Can be viewed in source system 06-03-2024 [...] in GI clinic in 1-2 after discharge [facility] Comment on above: Other Comment: Sheila trinh Attachment - attachment storage system not supported [id number] Can be viewed in source systemMissing Attachment - attachment storage system not supported 6381223 Can be viewed in source systemMissing Attachment - attachment storage system not supported 5891227 Can be viewed in source systemMissre[facility] Attachment - attachment storage system not supported 1465122 Can be viewed in source systemMissre[facility] Attachment - attachment storage system not supported 2570800 Can be viewed in source systemMissre[facility] Attachment - attachment storage system not supported 8145777 Can be viewed in source systemMissre[facility] Attachment - attachment storage system not supported 5526628 Can be viewed in source systemMissre[facility] Attachment - attachment storage system not supported 7998365 Can be viewed in source systemMi[facility] Attachment - attachment storage system not supported [id number] Can be viewed in source system 06-03-2024 [...] All Problems Acute diarrhea / SNOMED CT 9248919581 / Confirmed Adenomatous colon polyp / SNOMED CT 9570888933 / Confirmed Bladder mass / SNOMED CT 0973105348 / Confirmed Bladder stone / SNOMED CT 845289898 / Confirmed BPH with urinary obstruction / SNOMED CT 4431491933 / Confirmed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 Cashew milk, Tempe milk, Rice milk, Oat milk or Hemp [...] following resources: www.nof.org (National Osteoporosis Foundation) http://www.osteo.org/osteolinks.asp [place] [facility]: 4-889-237-BONE The Calcium Information Hotchkiss: -Non-Dairy, Plant based Milk, can contain in1 glass up to 450 mg of calcium (300 to 450 mg) Exampled include Oat Milk, Flax Milk, Tempe Milk, Cashew Milk, Soy Milk, Peas Milk general health and well being Examples of Food Sources of Calcium from [facility] Food Milligrams (mg) per serving Percent DV* Soymilk, calcium-fortified, 8 ounces 299 30 Maricao juice, calcium-fortified, 6 ounces 261 26 Tofu, firm, made with calcium sulfate, cup* 253 25 Tofu, soft, made with calcium sulfate, cup* 138 14 Kndqt-ye-scr cereal, calcium-fortified, 1 cup 100-1,000 10-100 Turnip greens, fresh, boiled, cup 99 10 Kale, raw, chopped, 1 cup 100 10 Kale, fresh, cooked, 1 cup 94 9 Mauritanian cabbage, bok marin, raw, shredded, 1 cup 74 7 Bread, white, 1 slice 73 7 Tortilla, corn, nabcz-ic-jjsj/marshall, one 6 diameter 46 5 Tortilla, flour, catxu-zu-owhh/marshall, one 6 diameter 32 3 Bread, whole-wheat, [...] could acces this information online at: http://ods.od.nih.gov/factsheets/Calci -[facility] CenterProfemaria [facility]/ Vitamin D: Vitamin D3= cholecalciferol, available over the counter. Dose recommended 800 to 1000 iu daily with a meal; Certain patients require 0611-8907 iu daily and in patients deficient in [...] bones. Studies show approximately 50% of [place] men and women are vitamin D deficient [...] http://ods.od.nih.gov/factsheets/vitam ind.asp [facility]: 9-486-171-BONE The Calcium Information Hotchkiss: Review of Osteoporosis medications Medications that prevent [...] atypical and subtroch. fracture of femur with termite treater helper use of bisphosphonates/alendronate and anti-resorptive agents, there [...] [place] for your healthcare. Sincerely, Nidia Weston APRN.[employer] documented [facility] procedures No dental concerns [facility] [phone] No serious infections or fevers Stopped celebrex [...] in patient's severe chronic Rheumatoid Arthritis. His warehouse administrative assistant has switched him to Humira as he [...] IBD and intermittent steroid therapy from his warehouse administrative assistant. Pharmacologic therapy is still indicated and recommended, [...] and sulfasalazine, but discuss first with your warehouse administrative assistant. Supplements recommended Vitamin B12: 500 to 1000 [...] which included preparing to see the patient, oiux-re-svfc patient care, completing clinical documentation, obtaining and/or [...] the care of your patient. Nidia Weston APRN.[employer] cc Jose L Lackey MD, MD Patient Instructions -PLEASE NOTE THAT WE REVIEW ALL YOUR TEST RESULTS AT YOUR NEXT FOLLOW UP VISIT WITH YOU. IF ANY ABNORMAL LAB REQUIRES SOONER ATTENTION, WE WILL CONTACT YOU. -If you have signed up on too.me, we will release your test results through too.me. I wish you the best of health [...] and sulfasalazine, but discuss first with your warehouse administrative assistant. Supplements recommended Vitamin B12: 500 to 1000 [...] track your nutrition and calcium intake on www.Single Touch Systems.Context Relevant This provides macro and micronutrient intake and requirements. - You can track your calcium intake on Digitour Media or any other calcium tracker of your [...] now for a cost, such as at www.Monesbat. -When eating a whole food plant based [...] track your nutrition and calcium intake on www.Vaccine Technologies Internationalometer.com This provides macro and micronutrient intake and [...] that features the Whole Plant Based diet, Biddle over knives (see video online and visit website). Another movie that was recently released is: Eating You Alive (you can find it at PolyActiva.Context Relevant) and The Game Changers movie Dr. Fauzia Ansari is a [facility] physician who is an expert in Whole Plant based diet. His website is Solutionary. His research highlights the benefits of the Whole food plant based diet in reversing and preventing heart disease. Mrs. Ansari (his ) has a cookbook with many recipes on whole plant based food: The Prevent and Reverse Heart Disease cookbook. You can also consider reading his son, Eze Ansari's book: The Engine 2 cookbook Eze is a retired test desk trouble locator who has helped many people get healthier by following the whole food plant based diet. Dr. Rock Velazco, has a website and free angélica to help get started on a whole plant based diet, at www.pcrYOGITECH.org and you can log on for free for his 21-Day Kickstart with meals and recipes to follow for 21 days. There is also a free angélica for that. He has multiple free videos and YouTube, for example: https://youtu.be/dvaUypaY7s4 , https://youtu.be/TeNUGuaqc1c He has written multiple books, including Power Food for the Brain, The Cheese Trap, Dr. Rock Vleazco's Program for Reversing Diabetes, Your Body in Balance Dr. Anthony Carlson has shown the benefit of a starch based whole food plant based diet to his Rheumatoid Arthritis patients, as well as patient with diabetes II, hypertension, obesity, multiple sclerosis, heart disease, acne, and other, his website: www.debra.Context Relevant Dr. Yayo Allred is a renowned neuroscientist, who has studied and researched the benefits of the Whole plant based diet. He has also researched the adverse effects of animal proteins on health. He presents many of his research findings in his book The [place] study. Dr. Gerber Becker has completed many research trials proving the reversal of diseases, such as heart disease and early prostate cancer, with healthy lifestyle and the Whole Plant based diet. Dr. Gerber Becker website is: www.deaU-NOTE.Context Relevant His new book: Undo It, has evidence [...] [place]), has articles on the following website: Algolytics Also, you could find additional information on practical to follow recipes by reading or watching online and YouTube such as: Accountancy Professor AJ, Cooking With Plants, The Vegan Corner (recipes from an Mexican Accountancy Professor), The Whole Foods Plant Based Cooking Show and visiting the provided websites for additional information on the whole plant based benefit and cooking recipes. You can also consider watching the vlogs of some of the plant based Athletes such as Fausto Ewing Derek on RivalSoft. Dr. Maryan Holguin (a psychiatrist who suffered [...] - Gentle Yoga Anyone Can Do Anywhere www.GarageSkins/yoga Also on youtube: yoga with Karlie 3- [...] or a higher dose. Raw: Garlic, Cilantro, Sandy nuts, Pumpkin seeds, Rockbridge seeds and Flax seed powder have been reported to help with certain metal detoxification such as mercury. [place]-3 plant based rich foods are good anti-inflammatory [...] the Whole Plant Based Diet, by watching Biddle over Knives movie and then review website. There are many other resources and educational information on the Whole plant based diet on the Internet and documentaries. There are other resources for wellness that you can also benefit from, such as the [facility] Wellness website, german hospitalinic.org and includes Plant based and Mediterranean diet, yoga and meditation. Please avoid all dairy products. You could use non-dairy milk such as Flax milk, Cashew milk, Tempe milk, Rice milk, Oat milk or Hemp [...] following resources: www.nof.org (National Osteoporosis Foundation) http://www.osteo.org/osteolinks.asp [place] [facility]: 8-481-481-BONE The Calcium Information Hotchkiss: -Non-Dairy, Plant based Milk, can contain in1 glass up to 450 mg of calcium (300 to 450 mg) Exampled include Oat Milk, Flax Milk, Tempe Milk, Cashew Milk, Soy Milk, Peas Milk general health and well being Examples of Food Sources of Calcium from [facility] Food Milligrams (mg) per serving Percent DV* Soymilk, calcium-fortified, 8 ounces 299 30 Maricao juice, calcium-fortified, 6 ounces 261 26 Tofu, firm, made with calcium sulfate, cup* 253 25 Tofu, soft, made with calcium sulfate, cup* 138 14 Xjaut-jt-emn cereal, calcium-fortified, 1 cup 100-1,000 10-100 Turnip greens, fresh, boiled, cup 99 10 Kale, raw, chopped, 1 cup 100 10 Kale, fresh, cooked, 1 cup 94 9 Mauritanian cabbage, bok marin, raw, shredded, 1 cup 74 7 Bread, white, 1 slice 73 7 Tortilla, corn, fvupp-bt-klwk/marshall, one 6 diameter 46 5 Tortilla, flour, yecqq-ac-ycwe/marshall, one 6 diameter 32 3 Bread, whole-wheat, [...] could acces this information online at: http://ods.od.nih.gov/factsheets/Calci -[facility] CenterProfessional/ Vitamin D: Vitamin D3= cholecalciferol, available over the counter. Dose recommended 800 to 1000 iu daily with a meal; Certain patients require 9109-6933 iu daily and in patients deficient in [...] bones. Studies show approximately 50% of [place] men and women are vitamin D deficient [...] available from: www.nof.org (the national osteoporosis foundation) http://www.[facility].org/arthrit is/osteo/info.htm http://ods.od.nih.gov/factsheets/vitam ind.asp [place] [facility]: 0-031-026-BONE [facility] Calcium Information Hotchkiss: Review of Osteoporosis medications Medications that prevent [...] atypical and subtroch. fracture of femur with termite treater helper use of bisphosphonates/alendronate and anti-resorptive agents, there [...] [place] for your healthcare. Sincerely, Nidia Weston APRN.[employer] PAST MEDICAL HISTORY Diagnosis Date Monoclonal gammopathy [...] [facility] Rajeev Rouse [facility] Pathology and Laboratory Medicine [place] ([facility]). It has not been cleared or approved by the FDA. -[facility] is regulated under CLIA as qualified to [...] 147 53 - 334 mg/dL Final MPA [place], Serum Date Value Ref Range Status 08/19/2018 1,020 534 - 1,267 mg/dL Final MPA Lambda, Serum Date Value Ref Range Status 08/19/2018 551 253 - 653 mg/dL Final MPA [place]/Lambda Ratio Date Value Ref Range Status 08/19/2018 [...] , Gender: Male SCANNER INFORMATION: DXA Model: Locappy W [id number] SITE SCANNED: Lumbar spine and left hip [...] machine for accurate comparison. FOR MORE INFORMATION: [facility] for Osteoporosis and Metabolic Bone Disease: www.ccf.org/arthritis/osteo National Osteoporosis Foundation: www.nof.org International Society of Clinical Densitometry www.iscd.org Fitting Room Inspector: [id number] Transcribe Date/Time: Sep 23 2022 10:28A Dictated by : DARRIAN DUBON MD This examination was interpreted and the report reviewed and electronically signed by: DARRIAN DUBON MD on Sep 28 2022 6:46PM EST documented in this encounter [facility] 03-14-2024 Note HNO ID: [id number] Author: NIDIA WESTON APRN.[employer] Service: ? Author Type: Nurse Practitioner Type: [...] work or invasive procedures No dental concerns [facility] [phone] No serious infections or fevers Stopped celebrex [...] Per (more content not included)... [facility] 02-29-2024 Note [id number] [facility] 02-16-2024 Miscellaneous Notes Spoke with patient. [...] Abs Lymph 1.00 - 4.00 k/uL 1.84 Galax% % 7.3 Abs Galax <0.87 k/uL 0.59 Eosin% % 0.1 Abs [...] [facility] [place] 01-12-2024 Note HNO ID: [id number] Author: NIDIA WESTON APRN.CNP Service: ? Author Type: Nurse Practitioner Type: Progress Notes Filed: 02/14/2024 23:31 Note Text: Follow up Jam Toscano is a very nice 58 year old male seen for Rheumatoid Arthritis and Osteoporosis Subjective: Patient reports: Low iron- following with Dr. Lomeli Has not been taking iron consistently Following with GI - Dr. Salmon in [place] Has scope scheduled February 25 Last visit [...] procedures No dental concerns [facility] [phone] No serious infections or fevers Stopped celebrex [...] note (more content not included)... [facility] 12-01-2023 Note HNO ID: [id number] Author: NIDIA WESTON APRN.[employer] Service: ? Author Type: Nurse Practitioner Type: [...] rom shoulders. Left elbow. No dental concerns [facility] [phone] GI - colitis- has been calm SSZ [...] Enbre (more content not included)... [facility] 05-05-2023 Miscellaneous Notes Faxed dental clearance letter to [facility] [phone]. LMOM for patient to call the office to schedule follow up in about 2 months (around 07/04/2023), or labs at least 1 week prior, for ov and reclast in 2-3 months , please precert. Please warn transfer to the [facility] center CC chart send: Return in about 2 months (around 07/04/2023), or labs at least 1 week prior, for ov and reclast in 2-3 months , please precert. Please schedule as requested. Anais Pate May 04, 2023 3:18 PM Spoke with Reggie at [facility], Letter can be faxed to Dr Mil Farrell for signing at [phone]. Please call for dental clearance All procedures complete, infection free, no upcoming dental procedure and ok with dentist prior to reclast If they need a letter may make one for them to send back [facility] [phone] documented in this encounter [facility] 05-04-2023 Instructions Nidia Weston APRN.[employer] - 05/04/2023 12:16 PM EDT -PLEASE NOTE THAT WE REVIEW ALL YOUR TEST RESULTS AT YOUR NEXT FOLLOW UP VISIT WITH YOU. IF ANY ABNORMAL LAB REQUIRES SOONER ATTENTION, WE WILL CONTACT YOU. -If you have signed up on too.me, we will release your test results through too.me. I wish you the best of health [...] and sulfasalazine, but discuss first with your warehouse administrative assistant. Supplements recommended Vitamin B12: 500 to 1000 [...] track your nutrition and calcium intake on www.Digitour Media This provides macro and micronutrient intake and requirements. - You can track your calcium intake on Digitour Media or any other calcium tracker of your [...] now for a cost, such as at www.Monesbat. -When eating a whole food plant based [...] track your nutrition and calcium intake on www.Single Touch Systems.Context Relevant This provides macro and micronutrient intake and [...] that features the Whole Plant Based diet, Biddle over knives (see video online and visit website). Another movie that was recently released is: Eating You Alive (you can find it at Jarvam) and The Game Changers movie Dr. Fauzia Ansari is a [facility] physician who is an expert in Whole Plant based diet. His website is Solutionary. His research highlights the benefits of the Whole food plant based diet in reversing and preventing heart disease. Mrs. Ansari (his ) has a cookbook with many recipes on whole plant based food: The Prevent and Reverse Heart Disease cookbook. You can also consider reading his son, Eze Ansari's book: The Engine 2 cookbook Eze is a retired test desk trouble locator who has helped many people get healthier by following the whole food plant based diet. Dr. Rock Velazco, has a website and free angélica to help get started on a whole plant based diet, at www.pcrYOGITECH.org and you can log on for free for his 21-Day Kickstart with meals and recipes to follow for 21 days. There is also a free angélica for that. He has multiple free videos and YouTube, for example: https://youVital Therapiesu.be/wcmRhegQ3v3 , https://youtu.be/KrBGTetml1h He has written multiple books, including Russian Towers for the Brain, The Cheese Trap, Dr. Rock Velazco's Program for Reversing Diabetes, Your Body in Balance Dr. Anthony Carlson has shown the benefit of a starch based whole food plant based diet to his Rheumatoid Arthritis patients, as well as patient with diabetes II, hypertension, obesity, multiple sclerosis, heart disease, acne, and other, his website: www.Probity.Context Relevant Dr. Yayo Allred is a renowned neuroscientist, who has studied and researched the benefits of the Whole plant based diet. He has also researched the adverse effects of animal proteins on health. He presents many of his research findings in his book The [place] study. Dr. Gerber Becker has completed many research trials proving the reversal of diseases, such as heart disease and early prostate cancer, with healthy lifestyle and the Whole Plant based diet. Dr. Gerber Becker website is: www.carmenU-NOTE.Context Relevant His new book: Undo It, has evidence [...] [place]), has articles on the following website: Moove In.Context Relevant Also, you could find additional information on practical to follow recipes by reading or watching online and YouTube such as: Chef BELLE, Cooking With Plants, The Vegan Corner (recipes from an Mexican Accountancy Professor), The Whole Foods Plant Based Cooking Show and visiting the provided websites for additional information on the whole plant based benefit and cooking recipes. You can also consider watching the vlogs of some of the plant based Athletes such as Graeme Kamara, Agustin Lundy on RivalSoft. Dr. Maryan Holguin (a psychiatrist who suffered [...] - Gentle Yoga Anyone Can Do Anywhere www.Dolosys.Context Relevant/yoga Also on youtube: yoga with Karlie 3- [...] or a higher dose. Raw: Garlic, Cilantro, Sandy nuts, Pumpkin seeds, [place] seeds and Flax seed powder have been reported to help with certain metal detoxification such as mercury. [place]-3 plant based rich foods are good anti-inflammatory [...] the Whole Plant Based Diet, by watching Biddle over BetaUsersNow.com movie and then review website. There are many other resources and educational information on the Whole plant based diet on the Internet and documentaries. There are other resources for wellness that you can also benefit from, such as the [facility] Wellness website, [facility] hospitalinic.org and includes Plant based and Mediterranean diet, yoga and meditation. Please avoid all dairy products. You could use non-dairy milk such as Flax milk, Cashew milk, Tempe milk, Rice milk, Oat milk or Hemp [...] following resources: www.nof.org (National Osteoporosis Foundation) http://www.osteo.org/osteolinks.asp [place] [facility] Health: 9-293-262-BONE [facility] Calcium Information Hotchkiss: -Non-Dairy, Plant based Milk, can contain in1 glass up to 450 mg of calcium (300 to 450 mg) Exampled include Oat Milk, Flax Milk, Tempe Milk, Cashew Milk, Soy Milk, Peas Milk general health and well being Examples of Food Sources of Calcium from [facility] Food Milligrams (mg) per serving Percent DV* Soymilk, calcium-fortified, 8 ounces 299 30 Maricao juice, calcium-fortified, 6 ounces 261 26 Tofu, firm, made with calcium sulfate, cup* 253 25 Tofu, soft, made with calcium sulfate, cup* 138 14 Zttir-jp-gcd cereal, calcium-fortified, 1 cup 100-1,000 10-100 Turnip greens, fresh, boiled, cup 99 10 Kale, raw, chopped, 1 cup 100 10 Kale, fresh, cooked, 1 cup 94 9 Mauritanian cabbage, bok marin, raw, shredded, 1 cup 74 7 Bread, white, 1 slice 73 7 Tortilla, corn, uxudo-ic-duuo/marshall, one 6 diameter 46 5 Tortilla, flour, dakgj-vm-xsqt/marshall, one 6 diameter 32 3 Bread, whole-wheat, [...] could acces this information online at: http://ods.od.nih.gov/factsheets/[facility] -[facility]/ Vitamin D: Vitamin D3= cholecalciferol, available over the counter. Dose recommended 800 to 1000 iu daily with a meal; Certain patients require 1405-3682 iu daily and in patients deficient in [...] bones. Studies show approximately 50% of [place] men and women are vitamin D deficient [...] national osteoporosis foundation) http://www.[facility].org/arthgabriella is/osteo/info.htm http://ods.od.nih.gov/factsheets/vitam ind.asp [place] [facility]: 3-944-904-BONE [facility] Calcium Information Hotchkiss: At the [facility], we work as a team for your care, along with Nurse Practitioners, Physician Assistants, Nurses and Medical Assistants. It is a privilege and honor to serve you. Thank you for choosing The [facility] for your healthcare. Sincerely, Nidia Weston APRN.MARKETING ASSIST[employer] documented [facility] encounter [facility] was there Goes back fitting denture 09/09 [facility] [phone] GI - colitis 03/23 Had colonoscopy - [...] in patient's severe chronic Rheumatoid Arthritis. His warehouse administrative assistant has switched him to Humira as he [...] IBD and intermittent steroid therapy from his warehouse administrative assistant. Pharmacologic therapy is still indicated and recommended, [...] if necessary, CC, NOF and ISCD and [facility]. PLAN: [facility] on 05/04/23 VITAMIN D 25 HYDROXY RENAL FUNCTION PANEL MONOCLONAL PROT UR W/INTERP Labs prior to next visit Reclast - You are on entyvio and sulfasalazine for your Ulcerative Colitis. These are also treating your Rheumatoid Arthritis. During infections you will need to hold the entyvio and sulfasalazine, but discuss first with your warehouse administrative assistant. Supplements recommended Vitamin B12: 500 to 1000 [...] in the office. This medication is given termite treater helper, indefinitely. Prolia should not be discontinued without [...] looked into transition therapy. Recent study from [facility] Slim et al, 04/11/2020, reported one [...] initiated in patients who have had an GA or stroke in the preceding year. This [...] atypical and subtroch. fracture of femur with alf use of bisphosphonates/alendronate and anti-resorptive agents, there [...] the care of your patient. Nidia Weston APRN.[facility] cc Jose L Lackey MD, MD Patient Instructions -PLEASE NOTE THAT WE REVIEW ALL YOUR TEST RESULTS AT YOUR NEXT FOLLOW UP VISIT WITH YOU. IF ANY ABNORMAL LAB REQUIRES SOONER ATTENTION, WE WILL CONTACT YOU. -If you have signed up on too.me, we will release your test results through too.me. I wish you the best of health [...] and sulfasalazine, but discuss first with your warehouse administrative assistant. Supplements recommended Vitamin B12: 500 to 1000 [...] track your nutrition and calcium intake on www.Digitour Media This provides macro and micronutrient intake and requirements. - You can track your calcium intake on Digitour Media or any other calcium tracker of your [...] now for a cost, such as at www.Monesbat. -When eating a whole food plant based [...] track your nutrition and calcium intake on www.Single Touch Systems.Context Relevant This provides macro and micronutrient intake and [...] that features the Whole Plant Based diet, Biddle over knives (see video online and visit website). Another movie that was recently released is: Eating You Alive (you can find it at Jarvam) and The Skill-Life ChangeOceanea movie Dr. Fauzia Ansari is a [facility] physician who is an expert in Whole Plant based diet. His website is Solutionary. His research highlights the benefits of the Whole food plant based diet in reversing and preventing heart disease. Mrs. Ansari (his ) has a cookbook with many recipes on whole plant based food: The Prevent and Reverse Heart Disease cookbook. You can also consider reading his son, Eze Ansari's book: The Engine 2 cookbook Eze is a retired test desk trouble locator who has helped many people get healthier [...] multiple free videos and YouTube, for example: https://youtu.Larger Than Life Prints/klyEsyaH8y1 , https://Efficiency Exchange.be/MmDUStoon4g He has written multiple books, including Power [...] heart disease, acne, and other, his website: www.debra.Context Relevant Dr. Yayo Allred is a renowned neuroscientist, who has studied and researched the benefits of the Whole plant based diet. He has also researched the adverse effects of animal proteins on health. He presents many of his research findings in his book The [place] study. Dr. Gerber Becker has completed many research trials proving the reversal of diseases, such as heart disease and early prostate cancer, with healthy lifestyle and the Whole Plant based diet. Dr. Gerber Becker website is: www.carmenU-NOTE.Context Relevant His new book: Undo It, has evidence based information and guide to following this healthy lifestyle. Dr. Cody Dillon has dedicated a website and additional time to reviewing all food related articles and research and presents them in his power point presentation and on his website at: nutritionfacts.org which is all free. Dr. Dillon has multiple free videos and YouTube, for example https://Efficiency Exchange.Larger Than Life Prints/aSgNkhgVtks and https://Efficiency Exchange.Larger Than Life Prints/lXXXygDRyBU. He has written multiple books including: How Not To and How Not To Diet He is now working on his next book: How Not To Age Dr. Danitza Dash (from the [facility]), has articles on the following website: Moove In.Context Relevant Also, you could find additional information on practical to follow recipes by reading or watching online and YouTube such as: Accountancy Professor AJ, Cooking With Plants, The Vegan Corner (recipes from an Mexican Accountancy Professor), The Whole Foods Plant Based Cooking Show and visiting the provided websites for additional information on the whole plant based benefit and cooking recipes. You can also consider watching the vlogs of some of the plant based Athletes such as Graeme Kamara, Agustin Lundy on [employer] Nutrition. Dr. Maryan Holguin (a psychiatrist who [...] - Gentle Yoga Anyone Can Do Anywhere www.GarageSkins/yoga Also on youtube: yoga with Karlie 3- [...] or a higher dose. Raw: Garlic, Cilantro, Sandy nuts, Pumpkin seeds, Rockbridge seeds and Flax seed powder have been reported to help with certain metal detoxification such as mercury. [place]-3 plant based rich foods are good anti-inflammatory [...] the Whole Plant Based Diet, by watching Biddle over BetaUsersNow.com movie and then review website. There are many other resources and educational information on the Whole plant based diet on the Internet and documentaries. There are other resources for wellness that you can also benefit from, such as the [facility] Wellness website, [facility]org and includes Plant based and Mediterranean diet, yoga and meditation. Please avoid all dairy products. You could use non-dairy milk such as Flax milk, Cashew milk, Tempe milk, Rice milk, Oat milk or Hemp [...] tolerate walnuts, you can use flax seeds, davdi seeds or hemp seeds instead. If you [...] Osteoporosis Foundation) http://www.osteo.org/osteolinks.asp National Institutes of Health: 7-606-319-BONE The Calcium Information Hotchkiss: -Non-Dairy, Plant based Milk, can contain in1 glass up to 450 mg of calcium (300 to 450 mg) Exampled include Oat Milk, Flax Milk, Tempe Milk, Cashew Milk, Soy Milk, Peas Milk general health and well being Examples of Food Sources of Calcium from [facility] Food Milligrams (mg) per serving Percent DV* Soymilk, calcium-fortified, 8 ounces 299 30 Maricao juice, calcium-fortified, 6 ounces 261 26 Tofu, firm, made with calcium sulfate, cup* 253 25 Tofu, soft, made with calcium sulfate, cup* 138 14 Uslay-cz-ryf cereal, calcium-fortified, 1 cup 100-1,000 10-100 Turnip greens, fresh, boiled, cup 99 10 Kale, raw, chopped, 1 cup 100 10 Kale, fresh, cooked, 1 cup 94 9 Mauritanian cabbage, bok marin, raw, shredded, 1 cup 74 7 Bread, white, 1 slice 73 7 Tortilla, corn, wdbwf-os-ejou/marshall, one 6 diameter 46 5 Tortilla, flour, ovxna-zx-oxrr/marshall, one 6 diameter 32 3 Bread, whole-wheat, [...] daily with a meal; Certain patients require 5923-8334 iu daily and in patients deficient in [...] bones. Studies show approximately 50% of [place] men and women are vitamin D deficient [...] is/osteo/info.htm http://ods.od.nih.gov/factsheets/vitam ind.asp National Institutes of Health: 3-138-689-BONE The Calcium Information Hotchkiss: At the [facility], we work as a team for your care, along with Nurse Practitioners, Physician Assistants, Nurses and Medical Assistants. It is a privilege and honor to serve you. Thank you for choosing The [facility] for your healthcare. Sincerely, Nidia Weston APRN.MARKETING ASSISTANT RETAIL DIV[employer] PAST MEDICAL HISTORY Diagnosis Date Monoclonal gammopathy [...] in am, 3 noon, 2 pm), per warehouse administrative assistant No current facility-administered medications for this visit. [...] by [facility] [place] ([facility]). It has not been cleared or approved by the FDA. -[facility] is regulated under CLIA as qualified to [...] 147 53 - 334 mg/dL Final MPA [place], Serum Date Value Ref Range Status 08/19/2018 1,020 534 - 1,267 mg/dL Final MPA Lambda, Serum Date Value Ref Range Status 08/19/2018 551 253 - 653 mg/dL Final MPA [place]/Lambda Ratio Date Value Ref Range Status 08/19/2018 [...] , Gender: Male SCANNER INFORMATION: DXA Model: Locappy W [id number] SITE SCANNED: Lumbar spine and left hip [...] www.nof.org International Society of Clinical Densitometry www.iscd.org Fitting Room Inspector: [id number] Transcribe Date/Time: Sep 23 2022 10:28A Dictated [...] YOU. -If you have signed up on Skyfiberhart, we will release your test results through too.me. I wish you the best of health [...] and sulfasalazine, but discuss first with your warehouse administrative assistant. Supplements recommended Vitamin B12: 500 to 1000 [...] track your nutrition and calcium intake on www.Single Touch Systems.Context Relevant This provides macro and micronutrient intake and requirements. - You can track your calcium intake on Vaccine Technologies InternationalometerWegoWise or any other calcium tracker of your [...] now for a cost, such as at www.Monesbat. -When eating a whole food plant based [...] that features the Whole Plant Based diet, Biddle over knives (see video online and visit website). Another movie that was recently released is: Eating You Alive (you can find it at PolyActiva.Context Relevant) and The Game Changers movie Dr. Fauzia Ansari is a [facility] physician who is an expert in Whole Plant based diet. His website is Solutionary. His research highlights the benefits of the Whole food plant based diet in reversing and preventing heart disease. Mrs. Ansari (his ) has a cookbook with many recipes on whole plant based food: The Prevent and Reverse Heart Disease cookbook. You can also consider reading his son, Eze Ansari's book: The Engine 2 cookbook Eze is a retired test desk trouble locator who has helped many people get healthier by following the whole food plant based diet. Dr. Rokc Velazco, has a website and free angélica to help get started on a whole plant based diet, at www.iNovo Broadband.CADFORCE and you can log on for free for his 21-Day Kickstart with meals and recipes to follow for 21 days. There is also a free angélica for that. He has multiple free videos and YouTube, for example: https://youVital Therapiesu.be/[email or web address] , https://youVital Therapiesu.be/PoVEZpdfb5r He has written multiple books, including Power [...] heart disease, acne, and other, his website: www.debra.Context Relevant Dr. Yayo Allred is a renowned neuroscientist, who has studied and researched the benefits of the Whole plant based diet. He has also researched the adverse effects of animal proteins on health. He presents many of his research findings in his book The [place] study. Dr. Gerber Becker has completed many research trials proving the reversal of diseases, such as heart disease and early prostate cancer, with healthy lifestyle and the Whole Plant based diet. Dr. Gerber Becker website is: www.carmenU-NOTE.Context Relevant His new book: Undo It, has evidence based information and guide to following this healthy lifestyle. Dr. Cody Dillon has dedicated a website and additional time to reviewing all food related articles and research and presents them in his power point presentation and on his website at: nutritionfacts.org which is all free. Dr. Dillon has multiple free videos and YouTube, for example https://youVital Therapiesu.be/aSgNkhgVtks and https://youVital Therapiesu.be/lXXXygDRyBU. He has written multiple books including: How Not To and How Not To Diet He is now working on his next book: How Not To Age Dr. Danitza Dash (from the [facility]), has articles on the following website: Algolytics Also, you could find additional information on practical to follow recipes by reading or watching online and YouTube such as: Accountancy Professor AJ, Cooking With Plants, The Vegan Corner (recipes from an Mexican Accountancy Professor), The Whole Foods Plant Based Cooking Show and visiting the provided websites for additional information on the whole plant based benefit and cooking recipes. You can also consider watching the vlogs of some of the plant based Athletes such as Fausto Ewing Derek on RivalSoft. Dr. Maryan Holguin (a psychiatrist who suffered [...] soda and water (see details from Dr. Yaeñz's website nutritionfacts.org) and rinse well with water. 2- Regular Exercise, such as beginner yoga, tommie chi, stretching, cardio, gradual strengthening, pool therapy, physical therapy Come As You Are: YOGA - Gentle Yoga Anyone Can Do Anywhere www.Dolosys.Context Relevant/yoga Also on youtube: yoga with Karlie 3- [...] or a higher dose. Raw: Garlic, Cilantro, Sandy nuts, Pumpkin seeds, [place] seeds and Flax seed powder have been reported to help with certain metal detoxification such as mercury. [place]-3 plant based rich foods are good anti-inflammatory [...] the Whole Plant Based Diet, by watching Biddle over Knives movie and then review website. There are many other resources and educational information on the Whole plant based diet on the Internet and documentaries. There are other resources for wellness that you can also benefit from, such as the [facility] Wellness website, [facility] hospitalinic.org and includes Plant based and Mediterranean diet, yoga and meditation. Please avoid all dairy products. You could use non-dairy milk such as Flax milk, Cashew milk, Tempe milk, Rice milk, Oat milk or Hemp [...] following resources: www.nof.org (National Osteoporosis Foundation) http://www.osteo.org/osteolinks.asp [place] [facility]: 0-978-004-BONE The Calcium Information Hotchkiss: -Non-Dairy, Plant based Milk, can contain in1 glass up to 450 mg of calcium (300 to 450 mg) Exampled include Oat Milk, Flax Milk, Tempe Milk, Cashew Milk, Soy Milk, Peas Milk general health and well being Examples of Food Sources of Calcium from [facility] Food Milligrams (mg) per serving Percent DV* Soymilk, calcium-fortified, 8 ounces 299 30 Maricao juice, calcium-fortified, 6 ounces 261 26 Tofu, firm, made with calcium sulfate, cup* 253 25 Tofu, soft, made with calcium sulfate, cup* 138 14 Ndcgv-jt-zqe cereal, calcium-fortified, 1 cup 100-1,000 10-100 Turnip greens, fresh, boiled, cup 99 10 Kale, raw, chopped, 1 cup 100 10 Kale, fresh, cooked, 1 cup 94 9 Mauritanian cabbage, bok marin, raw, shredded, 1 cup 74 7 Bread, white, 1 slice 73 7 Tortilla, corn, hrogg-kv-kusl/marshall, one 6 diameter 46 5 Tortilla, flour, pbipo-kp-gujr/marshall, one 6 diameter 32 3 Bread, whole-wheat, [...] daily with a meal; Certain patients require 3679-5937 iu daily and in patients deficient in [...] bones. Studies show approximately 50% of [place] men and women are vitamin D deficient [...] national osteoporosis foundation) http://www.[facility]velandclinic.org/arthrit is/osteo/info.htm http://ods.od.nih.gov/factsheets/vitam ind.asp [place] [facility]: 6-954-203-BONE The Calcium Information Hotchkiss: [facility] [...] in patient's severe chronic Rheumatoid Arthritis. His warehouse administrative assistant has switched him to Humira as he [...] IBD and intermittent steroid therapy from his warehouse administrative assistant. Pharmacologic therapy is still indicated and recommended, [...] if necessary, CC, NOF and ISCD and [facility]. PLAN: No orders found for this visit on 03/02/23. Please continue on yout Vitamin D 5000 international units once daily with meals and your multivitamin - You are on Humira and sulfasalazine for your Ulcerative Colitis. These are also treating your Rheumatoid Arthritis. During infections you will need to hold the Humira and sulfasalazine, but discuss first with your warehouse administrative assistant. Supplements recommended Vitamin B12: 500 to 1000 [...] in the office. This medication is given termite treater helper, indefinitely. Prolia should not be discontinued without [...] looked into transition therapy. Recent study from [facility] Slim et al, 04/11/2020, reported one [...] initiated in patients who have had an GA or stroke in the preceding year. This [...] atypical and subtroch. fracture of femur with termite treater helper use of bisphosphonates/alendronate and anti-resorptive agents, there [...] the care of your patient. Nidia Weston APRN.[employer]ETING ASSIST[employer] cc Jose L Lackey MD, MD Patient Instructions -PLEASE NOTE THAT WE REVIEW ALL YOUR TEST RESULTS AT YOUR NEXT FOLLOW UP VISIT WITH YOU. IF ANY ABNORMAL LAB REQUIRES SOONER ATTENTION, WE WILL CONTACT YOU. -If you have signed up on too.me, we will release your test results through too.me. I wish you the best of health [...] and sulfasalazine, but discuss first with your warehouse administrative assistant. Supplements recommended Vitamin B12: 500 to 1000 [...] track your nutrition and calcium intake on www.Digitour Media This provides macro and micronutrient intake and requirements. - You can track your calcium intake on Digitour Media or any other calcium tracker of your [...] now for a cost, such as at www.Monesbat. -When eating a whole food plant based [...] track your nutrition and calcium intake on www.Vaccine Technologies Internationalometer.Context Relevant This provides macro and micronutrient intake and [...] that features the Whole Plant Based diet, Biddle over knives (see video online and visit website). Another movie that was recently released is: Eating You Alive (you can find it at Jarvam) and The Game Changers movie Dr. Fauzia Ansari is a [facility] physician who is an expert in Whole Plant based diet. His website is Solutionary. His research highlights the benefits of the Whole food plant based diet in reversing and preventing heart disease. Mrs. Ansari (his ) has a cookbook with many recipes on whole plant based food: The Prevent and Reverse Heart Disease cookbook. You can also consider reading his son, Eze Ansari's book: The Engine 2 cookbook Eze is a retired test desk trouble locator who has helped many people get healthier by following the whole food plant based diet. Dr. Rock Velazco, has a website and free angélica to help get started on a whole plant based diet, at www.pcrYOGITECH.org and you can log on for free for his 21-Day Kickstart with meals and recipes to follow for 21 days. There is also a free angélica for that. He has multiple free videos and YouTube, for example: https://youtu.be/[email or web address] , https://youtu.be/AfEBEbiej0w He has written multiple books, including Russian Towers for the Brain, The Cheese Trap, Dr. Rock Velazco's Program for Reversing Diabetes, Your Body in Balance Dr. Anthony Carlson has shown the benefit of a starch based whole food plant based diet to his Rheumatoid Arthritis patients, as well as patient with diabetes II, hypertension, obesity, multiple sclerosis, heart disease, acne, and other, his website: www.Probity.Context Relevant Dr. Yayo Allred is a renowned neuroscientist, who has studied and researched the benefits of the Whole plant based diet. He has also researched the adverse effects of animal proteins on health. He presents many of his research findings in his book The [place] study. Dr. Gerber Becker has completed many research trials proving the reversal of diseases, such as heart disease and early prostate cancer, with healthy lifestyle and the Whole Plant based diet. Dr. Gerber Becker website is: www.carmenU-NOTE.Context Relevant His new book: Undo It, has evidence [...] [facility]), has articles on the following website: Moove In.Context Relevant Also, you could find additional information on practical to follow recipes by reading or watching online and YouTube such as: Chef BELLE, Cooking With Plants, The Vegan Corner (recipes from an Mexican Accountancy Professor), The Whole Foods Plant Based Cooking Show and visiting the provided websites for additional information on the whole plant based benefit and cooking recipes. You can also consider watching the vlogs of some of the plant based Athletes such as Fausto Ewing Derek on RivalSoft. Dr. Maryan Holguin (a psychiatrist who suffered [...] - Gentle Yoga Anyone Can Do Anywhere www.Dolosys.Context Relevant/yoga Also on youtube: yoga with Karlie 3- [...] or a higher dose. Raw: Garlic, Cilantro, Sandy nuts, Pumpkin seeds, [place] seeds and Flax seed powder have been reported to help with certain metal detoxification such as mercury. [place]-3 plant based rich foods are good anti-inflammatory [...] the Whole Plant Based Diet, by watching Biddle over BetaUsersNow.com movie and then review website. There are many other resources and educational information on the Whole plant based diet on the Internet and documentaries. There are other resources for wellness that you can also benefit from, such as the [facility] Wellness website, german hospitalinic.org and includes Plant based and Mediterranean diet, yoga and meditation. Please avoid all dairy products. You could use non-dairy milk such as Flax milk, Cashew milk, Tempe milk, Rice milk, Oat milk or Hemp [...] following resources: www.nof.org (National Osteoporosis Foundation) http://www.osteo.org/osteolinks.asp [place] [facility]: 2-663-424-BONE [facility] Calcium Information Hotchkiss: -Non-Dairy, Plant based Milk, can contain in1 glass up to 450 mg of calcium (300 to 450 mg) Exampled include Oat Milk, Flax Milk, Tempe Milk, Cashew Milk, Soy Milk, Peas Milk general health and well being Examples of Food Sources of Calcium from [facility] Food Milligrams (mg) per serving Percent DV* Soymilk, calcium-fortified, 8 ounces 299 30 Maricao juice, calcium-fortified, 6 ounces 261 26 Tofu, firm, made with calcium sulfate, cup* 253 25 Tofu, soft, made with calcium sulfate, cup* 138 14 Duqns-xz-rvz cereal, calcium-fortified, 1 cup 100-1,000 10-100 Turnip greens, fresh, boiled, cup 99 10 Kale, raw, chopped, 1 cup 100 10 Kale, fresh, cooked, 1 cup 94 9 Mauritanian cabbage, bok marin, raw, shredded, 1 cup 74 7 Bread, white, 1 slice 73 7 Tortilla, corn, doonz-aq-asan/marshall, one 6 diameter 46 5 Tortilla, flour, aczqr-zk-qhrm/marshall, one 6 diameter 32 3 Bread, whole-wheat, [...] could acces this information online at: http://ods.od.nih.gov/factsheets/Calci -[facility] CenterProfemaria [facility]/ Vitamin D: Vitamin D3= cholecalciferol, available over the counter. Dose recommended 800 to 1000 iu daily with a meal; Certain patients require 2422-5001 iu daily and in patients deficient in [...] bones. Studies show approximately 50% of [place] men and women are vitamin D deficient [...] http://ods.od.nih.gov/factsheets/vitam ind.asp [facility]: 3-172-703-BONE [facility] Calcium Information Center: At the [facility], we work as a team for your care, along with Nurse Practitioners, Physician Assistants, Nurses and Medical Assistants. It is a privilege and honor to serve you. Thank you for choosing The [facility] for your healthcare. Sincerely, Nidia Weston APRN.MARKETING ASSISTANT [employer] PAST MEDICAL HISTORY Diagnosis Date Monoclonal gammopathy [...] mg subcutaneously every 2 weeks. Prescribed by Hospice Care Consultant : Nel Lebron MD Previously prescr. by [...] in am, 3 noon, 2 pm), per warehouse administrative assistant No current facility-administered medications for this visit. [...] by [facility] [place] ([facility]). It has not been cleared or approved by the FDA. -[facility] is regulated under CLIA as qualified to [...] 147 53 - 334 mg/dL Final MPA [place], Serum Date Value Ref Range Status 08/19/2018 1,020 534 - 1,267 mg/dL Final MPA Lambda, Serum Date Value Ref Range Status 08/19/2018 551 253 - 653 mg/dL Final MPA [place]/Lambda Ratio Date Value Ref Range Status 08/19/2018 [...] , Gender: Male SCANNER INFORMATION: DXA Model: Locappy W [id number] SITE SCANNED: Lumbar spine and left hip [...] machine for accurate comparison. FOR MORE INFORMATION: [facility] for Osteoporosis and Metabolic Bone Disease: www.ccf.org/arthritis/osteo National Osteoporosis Foundation: www.nof.org International Society of Clinical Densitometry www.iscd.org Fitting Room Inspector: [id number] Transcribe Date/Time: Sep 23 2022 10:28A Dictated [...] YOU. -If you have signed up on too.me, we will release your test results through too.me. I wish you the best of health [...] and sulfasalazine, but discuss first with your warehouse administrative assistant. Supplements recommended Vitamin B12: 500 to 1000 [...] track your nutrition and calcium intake on www.Digitour Media This provides macro and micronutrient intake and requirements. - You can track your calcium intake on Digitour Media or any other calcium tracker of your [...] now for a cost, such as at www.Monesbat. -When eating a whole food plant based [...] track your nutrition and calcium intake on www.Single Touch Systems.Context Relevant This provides macro and micronutrient intake and [...] that features the Whole Plant Based diet, Biddle over knives (see video online and visit website). Another movie that was recently released is: Eating You Alive (you can find it at Jarvam) and The Skill-Life ChangeOceanea movie Dr. Fauzia Ansari is a [facility] physician who is an expert in Whole Plant based diet. His website is Solutionary. His research highlights the benefits of the Whole food plant based diet in reversing and preventing heart disease. Mrs. Ansari (his ) has a cookbook with many recipes on whole plant based food: The Prevent and Reverse Heart Disease cookbook. You can also consider reading his son, Eze Ansari's book: The Engine 2 cookbook Eze is a retired test desk trouble locator who has helped many people get healthier [...] multiple free videos and YouTube, for example: https://youtu.be/yqePrjiK7w1 , https://youtu.be/BqGKOlwib2s He has written multiple books, including Power Medlio for the Brain, The Cheese Trap, Dr. Rock Velazco's Program for Reversing Diabetes, Your Body in Balance Dr. Anthony Carlson has shown the benefit of a starch based whole food plant based diet to his Rheumatoid Arthritis patients, as well as patient with diabetes II, hypertension, obesity, multiple sclerosis, heart disease, acne, and other, his website: www.Probity.Context Relevant Dr. Yayo Allred is a renowned neuroscientist, who has studied and researched the benefits of the Whole plant based diet. He has also researched the adverse effects of animal proteins on health. He presents many of his research findings in his book The [place] study. Dr. Gerber Becker has completed many research trials proving the reversal of diseases, such as heart disease and early prostate cancer, with healthy lifestyle and the Whole Plant based diet. Dr. Gerber Becker website is: www.carmenU-NOTE.Context Relevant His new book: Undo It, has evidence [...] [place]), has articles on the following website: Moove In.Context Relevant Also, you could find additional information on practical to follow recipes by reading or watching online and YouTube such as: Chef BELLE, Cooking With Plants, The Vegan Corner (recipes from an Mexican Accountancy Professor), The Whole Foods Plant Based Cooking Show and visiting the provided websites for additional information on the whole plant based benefit and cooking recipes. You can also consider watching the vlogs of some of the plant based Athletes such as Graeme Kamara, Agustin Lundy on RivalSoft. Dr. Maryan Holguin (a psychiatrist who suffered [...] - Gentle Yoga Anyone Can Do Anywhere www.Dolosys.Context Relevant/yoga Also on youtube: yoga with Karlie 3- [...] or a higher dose. Raw: Garlic, Cilantro, Sandy nuts, Pumpkin seeds, Rockbridge seeds and Flax seed powder have been reported to help with certain metal detoxification such as mercury. [place]-3 plant based rich foods are good anti-inflammatory [...] the Whole Plant Based Diet, by watching Biddle over BetaUsersNow.com movie and then review website. There are many other resources and educational information on the Whole plant based diet on the Internet and documentaries. There are other resources for wellness that you can also benefit from, such as the [facility] Wellness website, owatonnaclinic.org and includes Plant based and Mediterranean diet, yoga and meditation. Please avoid all dairy products. You could use non-dairy milk such as Flax milk, Cashew milk, Tempe milk, Rice milk, Oat milk or Hemp [...] Osteoporosis Foundation) http://www.osteo.org/osteolinks.asp National Institutes of Health: 2-851-778-BONE The Calcium Information Hotchkiss: -Non-Dairy, Plant based Milk, can contain in1 glass up to 450 mg of calcium (300 to 450 mg) Exampled include Oat Milk, Flax Milk, Tempe Milk, Cashew Milk, Soy Milk, Peas Milk general health and well being Examples of Food Sources of Calcium from [facility] Food Milligrams (mg) per serving Percent DV* Soymilk, calcium-fortified, 8 ounces 299 30 Maricao juice, calcium-fortified, 6 ounces 261 26 Tofu, firm, made with calcium sulfate, cup* 253 25 Tofu, soft, made with calcium sulfate, cup* 138 14 Frxkc-kw-tzb cereal, calcium-fortified, 1 cup 100-1,000 10-100 Turnip greens, fresh, boiled, cup 99 10 Kale, raw, chopped, 1 cup 100 10 Kale, fresh, cooked, 1 cup 94 9 Mauritanian cabbage, bok marin, raw, shredded, 1 cup 74 7 Bread, white, 1 slice 73 7 Tortilla, corn, jwbdn-ko-aztq/marshall, one 6 diameter 46 5 Tortilla, flour, czsmn-px-bmpx/marshall, one 6 diameter 32 3 Bread, whole-wheat, [...] daily with a meal; Certain patients require 4481-9072 iu daily and in patients deficient in [...] bones. Studies show approximately 50% of [place] men and women are vitamin D deficient [...] is/osteo/info.htm http://ods.od.nih.gov/factsheets/vitam ind.asp National Institutes of Health: 6-926-087-BONE The Calcium Information Center: At the Select [...] in patient's severe chronic Rheumatoid Arthritis. His warehouse administrative assistant has switched him to Humira as he [...] IBD and intermittent steroid therapy from his warehouse administrative assistant. Pharmacologic therapy is still indicated and recommended, [...] if necessary, CC, NOF and ISCD and [facility]. PLAN: [facility] on 12/29/22 VITAMIN D 25 HYDROXY Please continue on yout Vitamin D 5000 international units once daily with meals and your multivitamin - You are on Humira and sulfasalazine for your Ulcerative Colitis. These are also treating your Rheumatoid Arthritis. During infections you will need to hold the Humira and sulfasalazine, but discuss first with your warehouse administrative assistant. Supplements recommended Vitamin B12: 500 to 1000 [...] in the office. This medication is given alf, indefinitely. Prolia should not be discontinued without [...] looked into transition therapy. Recent study from [facility] Slim et al, 04/11/2020, reported one [...] initiated in patients who have had an GA or stroke in the preceding year. This [...] atypical and subtroch. fracture of femur with termite treater helper use of bisphosphonates/alendronate and anti-resorptive agents, there [...] which included preparing to see the patient, wrmz-hf-xohk patient care, completing clinical documentation, obtaining and/or [...] the care of your patient. Nidia Weston APRN.[facility] cc Jose L Lackey MD, MD Patient Instructions -PLEASE NOTE THAT WE REVIEW ALL YOUR TEST RESULTS AT YOUR NEXT FOLLOW UP VISIT WITH YOU. IF ANY ABNORMAL LAB REQUIRES SOONER ATTENTION, WE WILL CONTACT YOU. -If you have signed up on too.me, we will release your test results through too.me. I wish you the best of health [...] and sulfasalazine, but discuss first with your warehouse administrative assistant. Supplements recommended Vitamin B12: 500 to 1000 [...] track your nutrition and calcium intake on www.Single Touch Systems.Context Relevant This provides macro and micronutrient intake and requirements. - You can track your calcium intake on Vaccine Technologies Internationalometer.Context Relevant or any other calcium tracker of your [...] now for a cost, such as at www.Monesbat. -When eating a whole food plant based [...] track your nutrition and calcium intake on www.Single Touch Systems.Context Relevant This provides macro and micronutrient intake and [...] that features the Whole Plant Based diet, Biddle over knives (see video online and visit website). Another movie that was recently released is: Eating You Alive (you can find it at Jarvam) and The Skill-Life ChangeOceanea movie Dr. Fauzia Ansari is a [facility] physician who is an expert in Whole Plant based diet. His website is Solutionary. His research highlights the benefits of the Whole food plant based diet in reversing and preventing heart disease. Mrs. Ansari (his ) has a cookbook with many recipes on whole plant based food: The Prevent and Reverse Heart Disease cookbook. You can also consider reading his son, Eze Ansari's book: The Engine 2 cookbook Eze is a retired test desk trouble locator who has helped many people get healthier [...] multiple free videos and YouTube, for example: https://youExterity.Larger Than Life Prints/wznGjxeJ7o0 , https://Efficiency Exchange.be/PjYBOjzvj2t He has written multiple books, including Power [...] heart disease, acne, and other, his website: www.debra.Context Relevant Dr. Yayo Allred is a renowned neuroscientist, who has studied and researched the benefits of the Whole plant based diet. He has also researched the adverse effects of animal proteins on health. He presents many of his research findings in his book The [place] study. Dr. Gerber Becker has completed many research trials proving the reversal of diseases, such as heart disease and early prostate cancer, with healthy lifestyle and the Whole Plant based diet. Dr. Gerber Becker website is: www.carmenU-NOTE.Context Relevant His new book: Undo It, has evidence based information and guide to following this healthy lifestyle. Dr. Cody Dillon has dedicated a website and additional time to reviewing all food related articles and research and presents them in his power point presentation and on his website at: nutritionfacts.org which is all free. Dr. Dillon has multiple free videos and YouTube, for example https://Efficiency Exchange.be/aSgNkhgVtks and https://Efficiency Exchange.be/lXXXygDRyBU. He has written multiple books including: How Not To and How Not To Diet He is now working on his next book: How Not To Age Dr. Danitza Dash (from the [facility]), has articles on the following website: Moove In.Context Relevant Also, you could find additional information on practical to follow recipes by reading or watching online and YouTube such as: Accountancy Professor AJ, Cooking With Plants, The Vegan Corner (recipes from an Mexican Accountancy Professor), The Whole Foods Plant Based Cooking Show and visiting the provided websites for additional information on the whole plant based benefit and cooking recipes. You can also consider watching the vlogs of some of the plant based Athletes such as Graeme Kamara, Fausto Marmolejo, Agustin on RivalSoft. Dr. Maryan Holguin (a psychiatrist who suffered [...] - Gentle Yoga Anyone Can Do Anywhere www.GarageSkins/yoga Also on youtube: yoga with Karlie 3- [...] or a higher dose. Raw: Garlic, Cilantro, Sandy nuts, Pumpkin seeds, Rockbridge seeds and Flax seed powder have been reported to help with certain metal detoxification such as mercury. [place]-3 plant based rich foods are good anti-inflammatory [...] the Whole Plant Based Diet, by watching Biddle over BetaUsersNow.com movie and then review website. There are many other resources and educational information on the Whole plant based diet on the Internet and documentaries. There are other resources for wellness that you can also benefit from, such as the [facility] Wellness website, german hospitalinic.org and includes Plant based and Mediterranean diet, yoga and meditation. Please avoid all dairy products. You could use non-dairy milk such as Flax milk, Cashew milk, Tempe milk, Rice milk, Oat milk or Hemp [...] Osteoporosis Foundation) http://www.osteo.org/osteolinks.asp National Institutes of Health: 4-435-208-BONE The Calcium Information Hotchkiss: -Non-Dairy, Plant based Milk, can contain in1 glass up to 450 mg of calcium (300 to 450 mg) Exampled include Oat Milk, Flax Milk, Tempe Milk, Cashew Milk, Soy Milk, Peas Milk general health and well being Examples of Food Sources of Calcium from [facility] Food Milligrams (mg) per serving Percent DV* Soymilk, calcium-fortified, 8 ounces 299 30 Maricao juice, calcium-fortified, 6 ounces 261 26 Tofu, firm, made with calcium sulfate, cup* 253 25 Tofu, soft, made with calcium sulfate, cup* 138 14 Dfylt-ng-odj cereal, calcium-fortified, 1 cup 100-1,000 10-100 Turnip greens, fresh, boiled, cup 99 10 Kale, raw, chopped, 1 cup 100 10 Kale, fresh, cooked, 1 cup 94 9 Mauritanian cabbage, bok marin, raw, shredded, 1 cup 74 7 Bread, white, 1 slice 73 7 Tortilla, corn, nicbi-py-gnjz/marshall, one 6 diameter 46 5 Tortilla, flour, zzjwn-fo-thnj/marshall, one 6 diameter 32 3 Bread, whole-wheat, [...] daily with a meal; Certain patients require 1917-5341 iu daily and in patients deficient in [...] bones. Studies show approximately 50% of [place] men and women are vitamin D deficient [...] is/osteo/info.htm http://ods.od.nih.gov/factsheets/vitam ind.asp National Institutes of Health: 4-902-613-BONE The Calcium Information Center: At the [facility], we work as a team for your care, along with Nurse Practitioners, Physician Assistants, Nurses and Medical Assistants. It is a privilege and honor to serve you. Thank you for choosing The [facility] for your healthcare. Sincerely, Nidia Weston APRN.MARKETING ASSISTANT RETAIL DIV[employer] PAST MEDICAL HISTORY Diagnosis Date Monoclonal gammopathy [...] mg subcutaneously every 2 weeks. Prescribed by Hospice Care Consultant : Nel Lebron MD Previously prescr. by [...] in am, 3 noon, 2 pm), per warehouse administrative assistant No current facility-administered medications for this visit. [...] by [facility] [place] ([facility]). It has not been cleared or approved by the FDA. -[facility] is regulated under CLIA as qualified to [...] 147 53 - 334 mg/dL Final MPA [place], Serum Date Value Ref Range Status 08/19/2018 1,020 534 - 1,267 mg/dL Final MPA Lambda, Serum Date Value Ref Range Status 08/19/2018 551 253 - 653 mg/dL Final MPA [place]/Lambda Ratio Date Value Ref Range Status 08/19/2018 [...] , Gender: Male SCANNER INFORMATION: DXA Model: Locappy W [id number] SITE SCANNED: Lumbar spine and left hip [...] machine for accurate comparison. FOR MORE INFORMATION: [facility] Osteoporosis and Metabolic Bone Disease: www.ccf.org/arthritis/osteo National Osteoporosis Foundation: www.nof.org International Society of Clinical Densitometry www.iscd.org Fitting Room Inspector: [id number] Transcribe Date/Time: Sep 23 2022 10:28A Dictated [...] aware. Estefanía Ferraro MA ----- Message from aDrrian Dubon MD sent at 02/06/2022 7:56 PM [...] prevention Other specified counseling Ulcerative pancolitis (HCC) [place] ulcerative (chronic) colitis Other osteoporosis without current pathological fracture documented [facility] Diagnosis Rheumatoid arthritis 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)- Primary Encounter to discuss test results Other specified counseling Counseling on health promotion and disease prevention Other specified counseling Ulcerative pancolitis (HCC) [place] ulcerative (chronic) colitis Vitamin D deficiency Unspecified [...] of multiple sites [facility] Diagnosis Rheumatoid arthritis 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) Other osteoporosis without current pathological fracture High risk for hip fracture Other specified conditions influencing health status Vitamin D deficiency, hx Unspecified vitamin D deficiency documented [facility]* Diagnosis Other osteoporosis without current pathological fracture High risk for hip fracture Other specified conditions influencing health status Bone loss Other disorders of bone and cartilage Vitamin D deficiency, hx Unspecified vitamin D deficiency documented in this encounter [facility] Diagnosis Elevated alkaline phosphatase level- Primary Other nonspecific abnormal serum enzyme levels documented in this encounter [facility] note* Diagnosis Rheumatoid arthritis 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) documented in this encounter [facility] Diagnosis Rheumatoid arthritis 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)- Primary Vitamin D deficiency Unspecified vitamin D deficiency Other osteoporosis without current pathological fracture Encounter for medication review and counseling Other specified counseling Rheumatoid arthritis 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) documented in this encounter [facility]* Diagnosis Foreign body of left hand, sequela- Primary documented in this encounter [facility]* Diagnosis Rheumatoid arthritis 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)- Primary Vitamin D deficiency Unspecified vitamin D deficiency Other osteoporosis without current pathological fracture documented [facility] this [facility] Diagnosis Seropositive rheumatoid arthritis (HCC)- Primary Rheumatoid arthritis Rheumatoid arthritis 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) On sulfasalazine therapy Ulcerative pancolitis (HCC) [place] ulcerative (chronic) colitis Other osteoporosis without current pathological fracture History of bisphosphonate therapy Personal history of other drug therapy Counseling on health promotion and disease prevention Other specified counseling documented [facility] this encounter [facility] Diagnosis Other osteoporosis without current pathological fracture- Primary documented in this encounter [facility] for referral (narrative)* Diagnostic Procedure Only (Routine) - Closed Specialty Diagnoses / Procedures Referred By Contac t Referred To Contact XR IMAGING Diagnoses Rheumatoid arthritis 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) Procedures XR HAND GENERAL 3V PA/LAT/OBL BILATERAL RADEX HAND MINIMUM 3 VIEWS Nidia Weston, LABORER PLUMBING.MARKETING ASSISTANT [employer]AIL DIV[employer] [address] [place] [address] [place] [address] Referral ID Status Reason Start Date Expiration Date V isits Requested Visits Authorized [id number] Closed Auto-Generate d Referral 03/14/2024 11/15/2024 1 1 [facility] for referral (narrative)* Diagnostic Procedure Only (Routine) - Closed Specialty Diagnoses / Procedures Referred By Contac t Referred To Contact XR IMAGING Diagnoses Rheumatoid arthritis 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) Procedures XR HAND GENERAL 3V PA/LAT/OBL BILATERAL RADEX HAND MINIMUM 3 VIEWS Nidia Weston APRN.MARKETING ASSISTANT [employer] DIV[employer] [address] [place] [address] Xr [place] [address] Referral ID Status Reason Start Date Expiration Date V isits Requested Visits Authorized [id number] Closed Auto-Generate d Referral 03/14/2024 11/15/2024 1 1 * Diagnostic Procedure Only (Routine) - Pending Review Specialty Diagnoses / Procedures Referred By Contac t Referred To Contact XR IMAGING Diagnoses Rheumatoid arthritis 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) Procedures XR HAND GENERAL 3V PA/LAT/OBL BILATERAL RADEX HAND MINIMUM 3 VIEWS Nidia Weston LABORER PLUMBING.MARKETING ASSISTANT [employer] [address] [place] [address] [place] [address] Referral ID Status Reason Start Date Expiration Date Visits Requested Visits Authorized [id number] Pending Review Auto-Generat ed Referral 04/13/2024 04/13/2025 1 1 [facility] for referral (narrative)* Diagnostic Procedure Only (Routine) - Pending Review Specialty Diagnoses / Procedures Referred By Contac t Referred To Contact XR IMAGING Diagnoses Seropositive rheumatoid arthritis (HCC) Ulcerative pancolitis (HCC) Other osteoporosis without current pathological fracture History of bisphosphonate therapy Procedures DXA-AXIAL SKELETON DXA BONE DENSITY STUDY 1/> SITES AXIAL SKEL Al-Ashkar, Feyrouz, MD [address] [place] [address] [place] [address] Referral ID Status Reason Start Date Expiration Date Visits Requested Visits Authorized [id number] Pending Review Auto-Generat ed Referral 11/04/2025 1 1 [facility] for visit Narrative* Diagnostic Procedure Only (Routine) - Closed Specialty Diagnoses / Procedures Referred By Contac t Referred To Contact XR IMAGING Diagnoses Rheumatoid arthritis 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) Procedures XR HAND GENERAL 3V PA/LAT/OBL BILATERAL RADEX HAND MINIMUM 3 VIEWS Nidia Weston, LABORER PLUMB[employer].MARKETING ASSIST[employer] [address] [place] [address] [place] [address] Referral ID Status Reason Start Date Expiration Date V isits Requested Visits Authorized [id number] Closed Auto-Generate d Referral 03/14/2024 11/15/2024 1 [...] NEW HIGH MDM 60 MINUTES Nidia Weston, LABORER [employer]UM[employer].MARKETING ASSIST[employer] [address] [place] [address] Referral ID Status Reason Start Date Expiration Date Visits Requested Visits Authorized [id number] Authorized PCP Requested Referral 02/11/2024 02/10/2025 1 1 Specialty Diagnoses / Procedures Referred By Hanna aponte Referred To Contact Orthopedics Diagnoses Foreign body of left hand, sequela Procedures CONSULT TO ORTHOPAEDICS OFFICE/OUTPATIENT [facility] [place] 60 MINUTES Nidia Weston, LABORER PLUMBING.MARKETING ASSISTANT [employer] [address] [place] [address] Referral ID Status Reason Start Date Expiration Date Visits Requested Visits Authorized [id number] Authorized PCP Requested Referral 04/11/2024 04/11/2025 1 [...] section and content) DATE CREATED AUTHOR 11/30/2021 [facility] DATE CREATED AUTHOR AUTHOR'S ORGANIZ ATION 02/20/2023 [facility] DATE CREATED AUTHOR AUTHOR'S ORGANIZ ATION 05/08/2024 [facility] DATE CREATED AUTHOR AUTHOR'S ORGANIZ ATION 06/09/2024 [facility] DATE CREATED AUTHOR AUTHOR'S ORGANIZ ATION 06/18/2024 [facility] DATE CREATED AUTHOR AUTHOR'S ORGANIZ ATION 11/29/[address] [facility] DATE CREATED AUTHOR AUTHOR'S ORGANIZ ATION 12/15/2024 [facility] DATE CREATED AUTHOR AUTHOR'S ORGANIZ ATION 12/16/2024 [facility] DATE CREATED AUTHOR AUTHOR'S ORGANIZ ATION 12/17/2024 [facility] DATE CREATED AUTHOR AUTHOR'S ORGANIZ ATION 12/24/2024 [facility] Source Comments (unrecognize d [...] INJECTION, ZOLEDRONIC ACID, 1 MG Nidia Weston, LABORER PLUMBING.MARKETING ASSISTANT [employer] [address] [place] [address] Rheu Infusion [facility] Maria De Jesus [address] [place] [address] Referral ID Status Reason Start Date Expiration Date V isits Requested Visits Authorized [id number] Authorized 04/12/2024 04/12/2025 1 1 Care Teams (unrecognized sec tion and content) Sql Database Developer Relationship Specialty Start Date End Date Jose L Lackey MD PCP - General Family Practice 01/18/14 Sql Database Developer Relationship Specialty Start Date End Date Jose L Lackey MD PCP - General Family Medicine 01/18/14 Sql Database Developer Relationship Specialty Start Date End Date Jose L Lackey MD PCP - General Family Medicine 01/18/14 Sql Database Developer Relationship Specialty Start Date End Date Jose L Lackey MD PCP - General Family Medicine 01/18/14 Sql Database Developer Relationship Specialty Start Date End Date Jose L Lackey MD PCP - General Family Medicine 01/18/14 Sql Database Developer Relationship Specialty Start Date End Date Jose L Lackey MD PCP - General Family Medicine 01/18/14 Sql Database Developer Relationship Specialty Start Date End Date Jose L Lackey MD PCP - General Family Medicine 01/18/14 Sql Database Developer Relationship Specialty Start Date End Date Jose L Lackey MD PCP - General Family Medicine 01/18/14 Sql Database Developer Relationship Specialty Start Date End Date Jose L Lackey MD PCP - General Family Medicine 01/18/14 Sql Database Developer Relationship Specialty Start Date End Date Jose L Lackey MD PCP - General Family Medicine 01/18/14 Sql Database Developer Relationship Specialty Start Date End Date Jose L Lackey MD PCP - [facility] 01/18/14 Sql Database Developer Relationship Specialty Start Date End Date Jose L Lackey MD PCP - [facility] 01/18/14 Sql Database Developer Relationship Specialty Start Date End Date Jose L Lackey MD PCP - [facility] 01/18/14 Sql Database Developer Relationship Specialty Start Date End Date Jose L Lackey MD PCP - [facility] 01/18/14 FOR RECORDS PERTAINING TO PATIENTS WHO [...] BE BASED ON THE PRIMARY CLINICAL RECORDS. [facility] [employer] [facility]. provides no warranty or guarantee of the accuracy or completeness of information in this document.
--- NOTE | 2025-02-03 06:49 | MR_ITS ---
The [address] [address] Patient Name: JAM SHANKS MRN: [id number] date: 1965 Sex: M Assigned Patient Location: MRI Current Patient Location: MRI Accession/Order Number: [id number] Exam Date: 02/03/2025 14:31 Report Date: 02/03/2025 14:34 At the request of: JOSE L LACKEY MD Procedure: MR cervical spine wo con EXAMINATION: MRI C-SPINE WITHOUT IV CONTRAST CLINICAL HISTORY: Cervical Radiculopathy, Cervical Radiculopathy COMPARISON: Chronic cervical pain radiating into left arm with weakness. TECHNIQUE: Multiecho imaging was performed in the sagittal and axial planes without contrast administration. FINDINGS: Vertebral heights appear maintained. No bone marrow edema is seen. The vallecula during junction appears normal. No abnormal cord signal. No paraspinal mass. No prevertebral soft tissue swelling. At C2-3: No posterior disc pathology. No neural canal or foraminal stenosis. At C3-4: Mild disc osteophyte complex present causing no significant canal or neural foraminal stenosis. At C4-5: Mild disc osteophyte complex present causing no significant canal or neural foraminal stenosis. At C5-6: No posterior disc pathology. No neural canal or foraminal stenosis. At C6-7: Mild disc osteophyte complex present causing no significant canal or neural foraminal stenosis. At C7-T1: No posterior disc pathology. No neural canal or foraminal stenosis. MR/MR cervical spine wo con IMPRESSION: Mild degenerative changes involving the cervical spine as described above without severe canal or neural foraminal stenosis. Impression dictated by: Anil Tillman Jr., DBrittneyOBrittney02/03/2025 2:34 PM Dictation Location: [facility] Electronically authenticated by: [id number] Y Date: 02/03/2025 14:34
== END 2025-02-03 06:45 | disposition home or self-care (01) ==
LOC: MRI 06:45
PROVIDERS: PCP Family Medicine; Visit Provider Family Medicine
DX: M06.9 Rheumatoid arthritis, unspecified (principal); M54.12 Radiculopathy, cervical region; M50.30 Other cervical disc degeneration, unspecified cervical region
CPT/HCPCS: 72141

== ENCOUNTER 2025-03-01 13:12 | Outpatient (OUT) | payer OTHER, SELFPAY ==
[2025-03-01 14:18] LABS: Basophils Percent Auto 0.5 % (0.2-2.0); Hematocrit 33.6 % (42.0-54.0); Hemoglobin 11.2 g/dL (14.0-18.0); Immature Granulocytes Abs Auto 0.01 10^3/uL (0.00-0.03); Immature Granulocytes Pct Auto 0.1 % (0.0-0.5); Lymphocytes Absolute Auto 1.2 10^3/uL (1.2-3.8); Lymphocytes Percent Auto 14.8 % (20.5-60.0); Mean Corpuscular HGB Conc 33.3 g/dL (29.9-35.2); Mean Corpuscular Hemoglobin 30.7 pg (25.9-34.0); Mean Corpuscular Volume 92.1 fL (80.0-94.0); Mean Platelet Volume 8.7 fL (9.5-13.5); Monocytes Absolute Auto 0.6 10^3/uL (0.3-0.8); Monocytes Percent Auto 7.1 % (1.7-12.0); Neutrophils Absolute Auto 6.2 10^3/uL (1.4-6.5); Neutrophils Percent Auto 77.5 % (43.0-75.0); Platelet Count 360 10^3/uL (150-450); Red Blood Count 3.65 10^6/uL (4.70-6.10); Red Cell Distribution Width 13.5 % (11.0-15.0)
== END 2025-03-01 13:13 | disposition home or self-care (01) ==
LOC: LAB 13:13
PROVIDERS: PCP Family Medicine; Visit Provider Family Medicine
DX: M06.9 Rheumatoid arthritis, unspecified (principal); D64.9 Anemia, unspecified
CPT/HCPCS: 36415; 83540; 85025

== ENCOUNTER 2025-04-13 15:28 | Outpatient (OUT) | payer OTHER, SELFPAY ==
--- OUTSIDE RECORDS SUMMARY | 2025-03-01 07:30 | XMS_ITS ---
Author Organization The [facility] in [place] Address [address] [place] [address] Care Team Providers Care Military Technology Manager Name Role Phone Toi Wang Primary Care Provider Allergies No Known Allergies Results Component Value Reference Range Notes IRON Reviewed date:03/01/2025 08:13:49 PM Interpretation: Performing Lab: Notes/Report: The [facility] , Iron 20.0 65.0-175.0 ug/dL Performing Lab: see note ML - The [facility] LB CBC AUTO DIFF Reviewed date:03/01/2025 08:13:49 PM Interpretation: Performing Lab: Notes/Report: The [facility] , White Blood Count 8.0 4.0-11.0 10 3/uL Red Blood Count 3.65 4.70-6.10 10 6/uL Hemoglobin 11.2 14.0-18.0 g/dL Hematocrit 33.6 42.0-54.0 % Mean Corpuscular Volume 92.1 80.0-94.0 fL Mean Corpuscular Hemoglobin 30.7 25.9-34.0 pg Mean Corpuscular HGB Conc 33.3 29.9-35.2 g/dL Red Cell Distribution Width 13.5 11.0-15.0 % Platelet Count 360 150-450 10 3/uL Mean Platelet Volume 8.7 9.5-13.5 fL Neutrophils Percent Auto 77.5 43.0-75.0 % Lymphocytes Percent Auto 14.8 20.5-60.0 % Monocytes Percent Auto 7.1 1.7-12.0 % Eosinophils Percent Auto 0.0 0.9-7.0 % Basophils Percent Auto 0.5 0.2-2.0 % Immature Granulocytes Pct Auto 0.1 0.0-0.5 % Neutrophils Absolute Auto 6.2 1.4-6.5 10 3/uL Lymphocytes Absolute Auto 1.2 1.2-3.8 10 3/uL Monocytes Absolute Auto 0.6 0.3-0.8 10 3/uL Eosinophils Absolute Auto 0.0 0.0-0.7 10 3/uL Basophils Absolute Auto 0.0 0.0-0.1 10 3/uL Immature Granulocytes Abs Auto 0.01 0.00-0.03 10 3/uL Performing Lab: see note ML - The [facility] LB REASON FOR VISIT talk over meds- wants something for inflammation, not happy with Planisher, Has been taking Meloxicam BID and Tylenol 16 tablets once daily, Is a member of [employer] program and does lightlifting, said it does help when inflammation is down to do the exercising, Was taking Tramadol- 2 QHS was too much, went down to 1 QHS- still didn't seem to help, Devoted Dr had cut lisinopril in half- last few days have been taking 20mg due to BP being high Medications Medication SIG (Take, Route, Frequency, Duration) Notes Start Date End Date Status Turmeric 500 MG 1 capsule Orally TID Active tiZANidine HCl 4 MG 1 tablet Orally qhs for 30 days 01/23/2025 Active Omeprazole 40 MG TAKE 1 CAPSULE BY [facility] EVERY DAY for 30 days Active Multi Vitamin - 1 tablet Orally Once a day for 30 day(s) 09/11/2023 Active sulfaSALAzine 500 MG 2 tabs Orally 4x a day Active Ezetimibe 10 MG TAKE 1 TABLET BY [facility] EVERY DAY FOR 30 DAYS for 30 Active Folic Acid 1 MG TAKE 1 TABLET BY [facility] EVERY DAY for 30 days Active Ferrous Sulfate 325 (65 Fe) MG 1 tablet Orally once a day for 30 days 12/21/2024 Active Meloxicam 15 MG 1 tablet Orally twic e daily for 30 days 01/23/2025 Active Lisinopril 20 MG 1 tablet Orally Once a day for 30 days Active Atorvastatin Calcium 20 MG TAKE 1 TABLET BY MOUTH EVERY DAY for 30 Active predniSONE 10 MG 5 tabs per day for 3 days, 4 tabs per day for 3 ays, 3 tabs perday for 3 days, 2 tabs per day for 3 days, 1 tab a day for 3 days, 1/2 tab a day for 4 days Orally Once a day for 19 days 03/01/2025 Active Entyvio Pen 108 MG/0.68ML inject Subcuta neous every 2 weeks 11/22/2024 Active Vitamin D3 125 MCG (5000 UT) 1 capsule Orally Once a day Active Social History Tobacco Use: Social History Observation Description Date Details (start date - stop date) Former Smoker NA - 12/16/2011 Tobacco Use/Smoking Question Answer Notes Patient is a former smoker When did you stop smoking? 12/16/2011 How long has it been since you last smoked? > 10 years Vital Signs Blood pressure systolic 146 mm Hg 03/01/20 25 Blood pressure diastolic 78 mm Hg 025 Height 66 in 03/01/2025 Weight 173.8 lbs 03/01/2025 BMI 28.05 kg/m2 03/01/2025 Encounters Encounter Location Date Provider Diagnosis [address] [address] 03/01/2025 Toi Wang Arthritis, rheumatoi d M06.9 Assessments Encounter Date Diagnosis (ICD Code) Assessment Notes Treatment Notes Treatment Clinical Notes Section Notes 03/01/2025 Arthritis, rheumatoid (ICD-10 - M06.9) Plan Of Treatment Medication Medication Name Sig Start Date Stop Date Notes predniSONE 10 MG 5 tabs per day for 3 days, 4 tabs per day for 3 ays, 3 tabs perday for 3 days, 2 tabs per day for 3 days, 1 tab a day for 3 days, 1/2 tab a day for 4 days Orally Once a day for 19 days 03/01/2025 Medications Administered Medication Instructions Date of Administration Dosage Notes Dexamethasone, 4mg/mL 03/01/2025 12 mg Progress Notes * James SHANKS LDOB:[birth year] (59 yo M)Acc No.[id number]:03/01/2025 Progress Note Patient: James STOVALL Provider: Alireza Wang ([facility])MD :1965 A ge:59 Y S ex:Male Date:03/01/2025 Address:[facility] [address], [facility] Check In:11:22 AM ESTCheck O ut:12:07 PM EST Subjective: * Chief Complaints: * T alk over meds- wants something for inflammationnot happy with RheumatologistHas been taking Meloxicam BID and Tylenol 16 tablets once dailyIs a member of [employer] program and does light lifting, said it does help when inflammation is down to do the exercisingWas taking Tramadol- 2 QHS was too much, went down to 1 QHS- still didn't seem to helpDevoted Dr had cut lisinopril in half- last few days have been taking 20mg due to BP being high * ROS: E ENT: hearing changes d enies. v isual changes d enies.?non-healing mouth sores d enies. s wollen glands or neck lumps d enies. h oarseness d enies. s ore throat d enies. d ifficulty swallowing d enies. n ose bleeds d enies. n rosa m congestion d enies. e ar ache d enies. e ar discharge?denies. r inging in ears d enies. l ight sensitivity d enies. e ye pain d enies. b lurring d enies. e ye irritation d enies. d ouble vision d enies.?vision loss d enies. G eneral/Constitutional: Sweats: D enies. F atigue d enies. S leep problems d enies. A norexia d enies. M alaise d enies. W eight loss d enies.?Fatigue or Weakness d enies. F ever or Chills d enies. C ardiovascular: Shortness of Breath w/lying flat d enies. L ightheadedness/dizziness d enies. C hest tightness/ heavy pressure d enies. S welling of legs, ankles, or feet d enies. W aking up with shortness of breath d enies. C hest pain denies. P alpitations d enies. W eight gain d enies. R espiratory: Chronic or frequent cough d enies. C oughing up blood?denies. D ifficulty breathing d enies. P roductive cough d enies. S noring?denies. S hortness of breath that awakens from sleep (PND) d enies. C hest pain d enies. S putum production d enies. W heezing d enies. M usculoskeletal: Joint pain d enies. J oint Fluid d enies. B ack pain d enies. K nee pain d enies. N enzo pain d enies. J oint Stiffness d enies. M uscle cramps d enies. W eakness of muscles d enies. A rthritis d enies. M uscle aches d enies. P ain in shoulder(s) d enies. S wollen joints d enies. 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 Modified On:09/11/2023U Status:confirmed D50.9 Anemia, iron deficie ncy Modified On:11/02/2023U Status:confirmed K51.00 Chronic pancolonic u lcerative colitis Modified On:11/02/2023U Status:confirmed M06.9 Arthritis, rheumatoi d Modified On:12/01/2023U Status:confirmed E78.00 Elevated cholesterol Modified On:09/11/2023U Status:confirmed K51.919 Ulcerative colitis, unspecified with unspecified complications Modified On:03/31/2023U Status:confirmed D12.6 Benign neoplasm of c olon, unspecified Modified On:04/02/2023U Status:confirmed Z00.00 Well adult Modified On:09/11/2023U Status:confirmed L30.9 Eczema Modified On:06/02/2024U Status:confirmed N20.0 Nephrolithiasis Modified On:10/11/2024U Status:confirmed M54.12 Cervical radiculopat hy Modified On:01/23/2025U Status:confirmed M25.819 Shoulder impingement Modified On:01/23/2025W/U Status:confirmed * Medical History: * Surgical History: C olonoscopy 3Polypectomy Trans Colon 04/26/2020right hip replacement * Hospitalization/Major Diagno stic Procedure: D enies Past Hospitalization * Family History: F ather: , Lung Disease. M other: , Heart Disease, Lung Disease, diagnosed with Unspecified heart disease. 4 brother(s) , 3 sister(s) . . * Social History: T obacco Use: T obacco Use/Smoking P atient is a f ormer smoker W hen did you stop smoking? 0 12/16/2011 H ow long has it been since you last smoked??> 10 years * Medications: T akingAtorvastatin Calcium 20 MG Tablet TAKE 1 TABLET BY MOUTH EVERY DAY Entyvio Pen(Vedolizumab) 108 MG/0.68ML Solution Auto-injector inject Subcutaneous every 2 weeks Ezetimibe 10 MG Tablet TAKE 1 TABLET BY MOUTH EVERY DAY FOR 30 DAYS Ferrous Sulfate 325 (65 Fe) MG Tablet 1 tablet Orally once a day Folic Acid 1 MG Tablet TAKE 1 TABLET BY MOUTH EVERY DAY Lisinopril 20 MG Tablet 1 tablet Orally Once a day Meloxicam 15 MG Tablet 1 tablet Orally twice daily Multi Vitamin - Tablet 1 tablet Orally Once a day Omeprazole 40 MG Capsule Delayed Release TAKE 1 CAPSULE BY MOUTH EVERY DAY sulfaSALAzine 500 MG Tablet 2 tabs Orally 4x a day tiZANidine HCl 4 MG Tablet 1 tablet Orally qhs Turmeric 500 MG Capsule 1 capsule Orally TID Vitamin D3 125 MCG (5000 UT) Capsule 1 capsule Orally Once a day Taking Atorvastatin Calcium 20 MG Tablet TAKE 1 TABLET BY MOUTH EVERY DAY Taking Entyvio Pen(Vedolizumab) 108 MG/0.68ML Solution Auto-injector inject Subcutaneous every 2 weeks Taking Ezetimibe 10 MG Tablet TAKE 1 TABLET BY MOUTH EVERY DAY FOR 30 DAYS Taking Ferrous Sulfate 325 (65 Fe) MG Tablet 1 tablet Orally once a day Taking Folic Acid 1 MG Tablet TAKE 1 TABLET BY MOUTH EVERY DAY Taking Lisinopril 20 MG Tablet 1 tablet Orally Once a day Taking Meloxicam 15 MG Tablet 1 tablet Orally twice daily Taking Multi Vitamin - Tablet 1 tablet Orally Once a day Taking Omeprazole 40 MG Capsule Delayed Release TAKE 1 CAPSULE BY MOUTH EVERY DAY Taking sulfaSALAzine 500 MG Tablet 2 tabs Orally 4x a day Taking tiZANidine HCl 4 MG Tablet 1 tablet Orally qhs Taking Turmeric 500 MG Capsule 1 capsule Orally TID Taking Vitamin D3 125 MCG (5000 UT) Capsule 1 capsule Orally Once a day DiscontinuedlevoFLOXacin 750 MG Tablet 1 tablet Orally Once a day predniSONE 20 MG Tablet 3 tablets Orally Once a day traMADol HCl 50 MG Tablet 1- 2 tablet as needed Orally qhs Medication List reviewed and reconciled with the patientDiscontinued levoFLOXacin 750 MG Tablet 1 tablet Orally Once a day Discontinued predniSONE 20 MG Tablet 3 tablets Orally Once a day Discontinued traMADol HCl 50 MG Tablet 1-2 tablet as needed Orally qhs Medication List reviewed and reconciled with the patient * Allergies: N .K.D.A.no[Allergies Verified] Objective: * Vitals: W t:173.8lbs, Ht: 66 in, BP:146/78mm Hg, BMI:28.05Index, Ht-cm: 167.64 cm, Wt-k.84 kg. * Examination: P hysical Exam: GENERAL: w ell developed, well nourished, in no acute distress. HEAD: n ormocephalic/atraumatic. EYES: p upils equal, round and reactive to light, conjunctivae and sclerae normal. EARS: n o deformity or lesion of external ear, canals and TM appear normal bilaterally, TM's intact, not inflamed with normal light reflex, hearing grossly normal to conversational speech. NOSE: n o deformity, discharge, inflammation, or lesions.? MOUTH: m ucous membranes moist, normal oropharynx and posterior pharynx without lesions or exudates, tongue normal, dentition normal. NECK: n enzo supple, no masses or palpable cervical nodes, trachea midline, thyroid without nodules, masses, tenderness, or enlargement. CHEST: n o chest wall deformity, no chest wall tenderness.? LUNGS: n ormal respiratory effort and clear to auscultation, no wheezes, rales, or rhonchi, good air exchange. CARDIO: r egular rate and rhythm, normal S1 and S2, nor murmur, rub, or gallop. PULSES: n ormal capillary refill. ABDOMEN: s oft, non-distended, non-tender, no masses. MUSCULOSKELETAL: n o deformity or scoliosis noted, normal range of motion, joints normal, no erythema, edema, effusion, or ecchymosis. EXTREMITY: n o clubbing, cyanosis, edema, or deformity with normal ROM in both upper and lower bilateral extremities. NEUROLOGIC: g rossly normal. SKIN: n o rashes, ulcerations, or suspicious lesions. LYMPH NODES: n o cervical adenopathy, nodes normal. MENTAL STATUS: a lert and oriented x3, normal mood and affect. Assessment: * Assessment: 1. A rthritis, rheumatoid - M06.9 (Primary) Plan: * Treatment: * Therapeutic Injections: Dexamethasone, 4mg/mL : 12 mg (Route: Intramuscular) given by Elicia Massey SA on right deltoid (Arthritis, rheumatoid) * Labs: * L ab: IRON (Collection Date & Time - 03/01/2025 01:25 PM) L ab: CBC AUTO DIFF (Collection Date & Time - 03/01/2025 01:25 PM) * Procedure Codes: 9 6372 THERAP.INJ. OF MED. INTRAMUSCULAR OR [id number] Dexamethasone, 4mg/mL, Units: 3.00 * Preventive Medicine: Screenings/Counseling: B [place] ACTION PLAN Above Normal BMI Follow-up D ietary management education, guidance, and counseling * * Sign off status: Completed Visit Status: C HK (Check Out) true * Provider: Alireza Wang ([facility])MD Date: 0 03/01/2025 Generated for Printi ng/Fagayleg/eTransmitting on: 0 04/13/2025 03:31 PM EDT History and Physical Notes * Examination Category Sub-Category Detail Notes Category Not es Physical Exam GENERAL: well developed, well nourished, in no acute distress HEAD: normocephalic/atraum atic EYES: pupils equal, round and reactive to light, conjunctivae and sclerae normal EARS: no deformity or lesi on of external ear, canals and TM appear normal bilaterally, TM's intact, not inflamed with normal light reflex, hearing grossly normal to conversational speech NOSE: no deformity, discha rge, inflammation, or lesions MOUTH: mucous membranes carri st, normal oropharynx and posterior pharynx without lesions or exudates, tongue normal, dentition normal NECK: neck supple, no mass es or palpable cervical nodes, trachea midline, thyroid without nodules, masses, tenderness, or enlargement CHEST: no chest wall deform ity, no chest wall tenderness LUNGS: normal respiratory e ffort and clear to auscultation, no wheezes, rales, or rhonchi, good air exchange CARDIO: regular rate and rhy thm, normal S1 and S2, nor murmur, rub, or gallop PULSES: normal capillary ref ill ABDOMEN: soft, non-distended, non-tender, no masses RECTAL: MUSCULOSKELETAL: no deformity or scol iosis noted, normal range of motion, joints normal, no erythema, edema, effusion, or ecchymosis EXTREMITY: no clubbing, cyanosi s, edema, or deformity with normal ROM in both upper and lower bilateral extremities NEUROLOGIC: grossly normal SKIN: no rashes, ulceratio ns, or suspicious lesions LYMPH NODES: no cervical adenopat hy, nodes normal MENTAL STATUS: alert and oriented x 3, normal mood and affect
--- OUTSIDE RECORDS SUMMARY | 2025-04-13 05:06 | XMS_ITS ---
Author Organization The [facility] in [place] Address [address] [place] [address] Care Team Providers Care Hot Press Operator Name Role Phone Toi Wang Primary Care Provider [phone] REASON FOR VISIT update- QUESTIONS Encounters Encounter Location Date Provider Diagnosis [facility] [address] [place] [address] 04/13/2025 Toi Wang Arthritis, rheumato id M06.9 Assessments Encounter Date Diagnosis (ICD Code) Assessment Notes Treatment Notes Treatment Clinical Notes Section Notes 04/13/2025 Arthritis, rheumatoid (ICD-10 - M06.9) Plan Of Treatment No Information Progress Notes * James SHANKS LDOB:[birth year] (59 yo M)Acc No.[id number]:04/13/2025 UNLOCKED PROGRESS NOTE Patient: Dariana PERALESJames TREADWELL :1965 A ge:59 Y S ex:Male Address:[address] [place] [address] * * Date:
--- OUTSIDE RECORDS SUMMARY | 2025-04-13 15:31 | XMS_ITS | Encounter Summary ---
Author Organization [facility] Address [address] [place] [address] Care Team Providers Care Coremaker Floor Name Role Phone Norm Wang MD Primary Care Provider [phone] Source Comments In the event this information is protected by the Federal Confidentiality of Alcohol and Drug AbusePatient Records regulations: The Federal rules restrict any use of the information to criminally investigate or prosecute any alcohol or drug abuse patient.[facility] Encounter Details Date Type Department Care Team (Late st Contact Info) Description 10/08/2015 Patient Msg Medical Records [address] [place] [address] Provider, Ccf results Social History Tobacco Use Types Packs/Day Years Used Date Smoking Tobacco: Never Assessed Sex and Gender Information Value Date Recorded Sex Assigned at Not on file Legal Sex Male 3:19 PM EST Gender Identity Not on file Sexual Orientation Not on file documented as of this encounter Plan of Treatment Upcoming Encounters Date Type Department Care Team (Late st Contact Info) Description 05/23/2025 8:00 AM EDT Results Only [facility] [address] [place] [address] [place] [address] labs 06/06/2025 7:45 AM EDT Appointment Radiology [address] [place] [address] Seropositive rheumatoid arthritis (HCC) [M05.9] 06/06/2025 8:20 AM EDT Office Visit Rheumatology [address] [place] [address] Darrian Dubon MD [address] [facility] [place] [address] Return for May 2025 for RA and OP and review of DXA. 10/31/2025 10:00 AM EST Office Visit Rheumatology [address] [place] [address] Darrian Dubon MD [address] [facility] [place] [address] Please also offer another apt later in 2024 or early 2025 (please use 30 min slot) for RA/OP documented as of this encounter Visit Diagnoses Not on filedocumented in this encounter Care Teams Coremaker Floor Relationship Specialty Start Date End Date Norm Wang MD PCP - General Family Medicine 01/18/14 documented as of this encounter
--- OUTSIDE RECORDS SUMMARY | 2025-04-13 15:31 | XMS_ITS | Encounter Summary ---
Author Organization [facility] Address [address] [place] [address] Care Team Providers Care Brass Plater Name Role Phone Norm Wang MD Primary Care Provider [phone] Encounter Details Date Type Department Care Team (Late Contact Info) Description 04/06/2023 Abstract [facility] [address] [place] [address] Catracho Gross, DO [address] [place] [address] Social History Tobacco Use Types Packs/Day Years Used Date Smoking Tobacco: Former Cigarettes Q uit: 2012 Tobacco Cessation:Counseling Given: Not Answered Alcohol Use Standard Drinks/Week Comments Not Currently 0 (1 standard drink = 0.6 oz pure alcohol) Caffeine: more than 4 cups per day Sex and Gender Information Value Date Recorded Sex Assigned at Not on file Legal Sex Male 7:07 PM EDT Gender Identity Not on file Sexual Orientation Not on file documented as of this encounter Plan of Treatment Upcoming Encounters Date Type Department Care Team ([facility] Contact Info) Description 05/03/2025 10:00 AM EDT Office Visit [facility] [address] [facility] [address] [place] [phone] Jr. Elias Veliz, DO [address] [place] [address] 03/28/2026 10:00 AM EDT Office Visit [facility] [address] [place] [address] Jr. Elias Veliz, DO [address] [place] [address] documented as of this encounter Visit Diagnoses Not on filedocumented in this encounter Care Teams Brass Plater Relationship Specialty Start Date End Date Norm Wang MD PCP - General Family Medicine 04/21/23 documented as of this encounter
--- OUTSIDE RECORDS SUMMARY | 2025-04-13 15:31 | XMS_ITS | Clinical Summary ---
Author Organization [facility] Address [address] [place] [address] Care Team Providers Care Knot Tying Operator Name Role Phone Norm Wang MD Primary Care Provider [phone] Allergies Active Allergy Reactions Criticality Noted Date Comments Cholestatin Unknown 03/19/2023 Medications Multiple Vitamins-Minera ls (CENTRUM ADULTS PO) Orally Active atorvastatin (Lipitor) 20 MG tablet Take 20 mg by mouth 1 (one) time each day at the same time. Active folic acid (Folvite) 1 MG tablet Take 1 mg by mouth 1 (one) time each day at the same time. Active ezetimibe (Zetia) 10 MG tablet Take 10 mg by mouth in the morning. Active dicyclomine (Bentyl) 10 MG capsule TAKE 1 CAPSULE BY MOUTH 4 TIMES A DAY 12/17/2022 Active cholecalciferol (Vitamin D-3) 125 MCG (5000 UT) capsule Take 5,000 Units by mouth in the morning. Active sulfaSALAzine (Azulfidine) 500 MG EC tablet TAKE 2 TABLETS BY MOUTH 4 TIMES A DAY 03/25/2023 Active omeprazole (PriLOSEC) [address] capsule Take 40 mg by mouth in the morning. Active mesalamine (Rowasa) 4 g enema as directed Rectal Active lisinopril 20 MG tablet 1 (one) time each day at the same time. Active Entyvio 300 MG injection 05/27/2023 Active tiZANidine (Zanaflex) 4 MG capsule Take 4 mg by mouth in the morning and 4 mg in the evening and 4 mg before bedtime. Active ferrous sulfate 325 (65 Fe) MG EC tablet Take 325 mg by mouth in the morning and 325 mg at noon and 325 mg in the evening. Take with meals. Do not crush, chew, or split. Active Turmeric 400 MG capsule Take by mouth Active Active Problems Problem Noted Date Diagnosed Date Arthritis of knee, left 03/19/2023 Arthritis of right hip 03/19/2023 Chronic eczematous otitis externa of right ear 0 03/19/2023 History of total knee replacement 03/19/2023 History of total right hip arthroplasty 03/19/20 Primary osteoarthritis of right knee 03/19/2023 Sensorineural hearing loss, bilateral 03/19/2023 Osteoporosis 10/19/2018 Ulcerative pancolitis 02/05/2017 Encounter for monitoring of etanercept therapy 0 02/07/2016 Vitamin D deficiency 10/05/2015 Rheumatoid arthritis with positive rheumatoid fa ctor 09/12/2015 Encounters Date Type Department Care Team Description 03/29/2025 10:00 AM EDT Office Visit [facility] [address] [place] [address] Jr. Elias Veliz, DO Pain of right hip (Primary Dx); Primary osteoarthritis of right hip; Arthritis of knee, left; History of total hip replacement, right 03/29/2025 9:55 AM EDT Ancillary Procedure [facility] [address] [place] [address] 03/29/2025 Bamboo flowsheet [facility] [address] [place] [address] Jr. Elias Veliz, 03/29/2025 Travel from Last 3 Months Immunizations Immunization Administration Dates Next Due Influenza, injectable, quadrivalent, preservativ e free 08/29/2019 Pneumococcal Conjugate PCV 13 11/01/2015 Family History Medical History Relation Name Comments COPD Father Stroke Father COPD Mother Heart disease Mother Relation Name Status Comments Father Mother Other Family history of hyperlipidemia, hypertension Social History Tobacco Use Types Packs/Day Years Used Date Smoking Tobacco: Former Cigarettes Q uit: 2011 Smokeless Tobacco: Former Tobacco Cessation:Counseling Given: Not Answered Alcohol Use Standard Drinks/Week Comments Not Currently 0 (1 standard drink = 0.6 oz pure alcohol) Caffeine: more than 4 cups per day Sex and Gender Information Value Date Recorded Sex Assigned at Not on file Legal Sex Male 7:07 PM EDT Gender Identity Not on file Sexual Orientation Not on file Last Filed Vital Signs Vital Sign Reading Time Taken Comments Blood Pressure - - Pulse - - Temperature - - Respiratory Rate - - Oxygen Saturation - - Inhaled Oxygen Concentration - - Weight 81.6 kg (180 lb) 03/31/2023 12:00 PM EDT Height 167.6 cm (5' 6 ) 03/31/2023 12:00 PM EDT Body Mass Index 29.05 03/31/2023 12:00 PM EDT Plan of Treatment Upcoming Encounters Date Type Department Care Team (Late st Contact Info) Description 05/03/2025 10:00 AM EDT Office Visit [facility] [address] [place] [address] Jr. Elias Veliz, DO [address] [facility] [address] [place] [address] 03/28/2026 10:00 AM EDT Office Visit [facility] [address] [place] [address] Jr. Elias Veliz, DO [address] [facility] [address] [place] [address] Health Maintenance Due Date Last Done Comments CT Colonography 1965 Colonoscopy 1965 Colorectal Cancer Screening 1965 FIT-DNA 1965 FIT 1965 FOBT 1965 Sigmoidoscopy 1965 Influenza Vaccine (Season Ended) 2025 09/27/2020, 10/28/2019, 08/29/2019, Additional history exists Procedures Procedure Name Priority Date/Time Associated Diagnosis Comments XR HIP 2 OR 3 VW RIGHT Routine 03/29/2025 9:45 AM EDT Primary osteoarthritis of right hip from Last 3 Months Results * XR hip right 2 or 3 views (03/29/2025 9:45 AM EDT) Anatomical Region Laterality Modality Lower Extremities, Hip Right Radiograp hic Imaging Narrative 03/29/2025 10:30 AM EDT Imaging Result: AP and lateral of right hip showed acceptable position and alignment of right total hip arthroplasty. There was no evidence of loosening of the acetabular cup or femoral stem. Femoral head was well centered in the acetabular liner without evidence of asymmetric or accelerated wear. There was no gross evidence of fracture and/or dislocation. Impression: Unremarkable right total hip arthroplasty. Jr. Elias Veliz DO IMG XR PROCEDURES Final Result from Last 3 Months Insurance [employer] Care Teams Knot Tying Operator Relationship Specialty Start Date End Date Norm Wang MD PCP - General Family Medicine 04/21/23
--- OUTSIDE RECORDS SUMMARY | 2025-04-13 15:31 | XMS_ITS | Clinical Summary ---
Author Organization [facility] Address [address] [place] [address] Care Team Providers Care It Systems Administrator Name Role Phone Norm Wang MD Primary Care Provider [phone] Allergies No known active allergies Medications ezetimibe (ZETIA) 10 mg tablet Take 10 mg by mouth once daily. Active atorvastatin (LIPITOR) 20 mg tablet Take 20 mg by mouth once daily. Active lisinopril (ZESTRIL, PRINIVIL) 20 mg tablet Take 20 mg by mouth once daily. Active Omeprazole 40 mg capsule Take 40 mg by mouth once daily. Active CHEWABLE MULTI VITAMIN ORAL Take by mouth. Active Cholecalcifero l, Vitamin D3, 5,000 unit cap Take 5,000 Units by mouth once daily. patient taking once daily with food Active folic acid 1 mg tablet Take 1 mg by mouth once daily. 0 8 Active sulfaSALAzine EC (AZULFIDINE EN) 500 mg EC tablet TAKE 2 TABLETS BY MOUTH 4 TIMES A DAY 3 Active turmeric root extract 500 mg cap Take 500 mg by mouth once daily. Take one(1) tablet three times daily. Active ENTYVIO 300 mg injection 4 Active meloxicam (MOBIC) 15 mg tablet Take 15 mg by mouth once daily. Active traMADol (ULTRAM) 50 mg tablet Take 50 mg by mouth every 6 hours as needed for pain. Active tamsulosin (FLOMAX) 0.4 mg Take 1 capsule by mouth every afternoon. 3 11/02/20 23 Discontinued( Accelerator Technician Duplicate Med) Active Problems Problem Noted Date Diagnosed Date Osteoporosis 10/19/2018 Ulcerative pancolitis 02/05/2017 Encounter for monitoring of etanercept therapy 0 02/07/2016 Vitamin D deficiency 10/05/2015 Rheumatoid arthritis with positive rheumatoid fa ctor 09/12/2015 Encounters Date Type Department Care Team Description 03/23/2025 Orders Only Infusion [address] [place] [address] Fredy Farnsworth RPh 02/14/2025 7:20 AM EDT Office Visit Rheumatology [address] [facility] [place] [address] Darrian Dubon MD Seropositive rheumatoid arthritis (HCC) (Primary Dx); Rheumatoid arthritis 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); On sulfasalazine therapy; Ulcerative pancolitis (HCC); Other osteoporosis without current pathological fracture; History of bisphosphonate therapy; Encounter to discuss test results; Encounter for medication review and counseling; Counseling on health promotion and disease prevention from Last 3 Months Immunizations Immunization Administration Dates Next Due hepatitis A-hepatitis B (Hep A-HepB) vaccine (TWINRIX) 12/08/2015,05/31/2015,05/03/2015 influenza (IIV3) vaccine, tr ivalent, PF (AFLURIA, FLUARIX, FLULAVAL, FLUVIRIN, FLUZONE) 07/31/2015 influenza (IIV4) vaccine, ag e 6 mo - 64 yr, quadrivalent, PF (AFLURIA, FLUARIX, FLULAVAL, FLUZONE) 08/29/2019,08/15/2016 influenza (ccIIV4) vaccine, age 6+ mo, quadrivalent (FLUCELVAX) 10/28/2019 influenza (ccIIV4) vaccine, age 6+ mo, quadrivalent, PF (FLUCELVAX) 09/27/2020 pneumococcal conjugate (PCV1 3) vaccine, 13 valent (PREVNAR 13) 11/01/2015 pneumococcal polysaccharide (PPV23) vaccine, 23 valent (PNEUMOVAX 23) 05/03/2015 zoster (RZV) vaccine, recomb inant (SHINGRIX) 06/09/2022,03/17/2022 Social History Tobacco Use Types Packs/Day Years Used Date Smoking Tobacco: Former Smokeless Tobacco: Never Tobacco Cessation:Counseling Given: Not Answered Comments:quit in 2011 Alcohol Use Standard Drinks/Week Comments Never 0 (1 standard drink = 0.6 oz pur e alcohol) AUDIT-C Answer Date Recorded Q1: How often do you have a drink containing alc ohol? Never 01/24/2020 Average Number of Drinks Not on file 020 Frequency of Binge Drinking Not on file 01/14 PHQ-2 Answer Date Recorded PHQ-2 score 0 02/10/2019 Area Deprivation Index Answer Date Jaziel rded National Score (1-100), lower number is lower ri sk 87 05/04/2023 State Score (1-10), lower number is lower risk 8 05/04/2023 Data from: https://www.neighborhoodatlas.medicine.[facility]/. Last address used for calculation [address] 05/04/2023 Sex and Gender Information Value Date Recorded Sex Assigned at Not on file Legal Sex Male 3:19 PM EST Gender Identity Not on file Sexual Orientation Not on file Last Filed Vital Signs Vital Sign Reading Time Taken Comments Blood Pressure 134/74 02/14/2025 7:10 AM EDT Pulse 66 02/14/2025 7:10 AM EDT Temperature 36.9 C (98.4 F) 05/09/2024 9:08 AM EDT Respiratory Rate 18 02/02/2020 8:37 AM EDT Oxygen Saturation 97% 05/09/2024 9:08 AM EDT Inhaled Oxygen Concentration - - Weight 79 kg (174 lb 2.6 oz) 02/14/2025 7:10 AM EDT Height 167.6 cm (5' 5.98 ) 02/02/2020 8:37 AM ED T Body Mass Index 28.12 02/02/2020 8:37 AM EDT Plan of Treatment Upcoming Encounters Date Type Department Care Team (Late st Contact Info) Description 05/23/2025 8:00 AM EDT Results Only [facility] [address] [place] [address] [place] [address] labs 06/06/2025 7:45 AM EDT Appointment Radiology [address] [place] [address] Seropositive rheumatoid arthritis (HCC) [M05.9] 06/06/2025 8:20 AM EDT Office Visit Rheumatology [address] [place] [address] Darrian Dubon MD [address] [place] [address] Return for May 2025 for RA and OP and review of DXA. 10/31/2025 10:00 AM EST Office Visit Rheumatology [address] [facility] [address] [place], [place] [id number] Darrian Dubon MD [address] [facility] [address] [place], [place] [phone] Please also offer another apt later in 2024 or early 2025 (please use 30 min slot) for RA/OP Health Maintenance Due Date Last Done Comments Anxiety Screening 1982 Depression Screening 1982 HIV Screening 1982 DTaP,Tdap,Td Vaccine (1 - Tdap) [address] Colonography 2009 Cologuard (FIT-DNA) 2009 Colonoscopy 2009 Colorectal Cancer Screening 2009 Fecal Occult Blood 2009 Prostate Cancer Screening Discussion 2009 Sigmoidoscopy 2009 Pneumococcal Vaccine: 50+ (3 of 3 - PPSV23, PCV20 or PCV21) 05/03/2020 11/01/2015, 05/03/2015 Covid-19 Vaccine (2 - Jansse n risk series) 04/15/2021 03/18/2021 RSV Vaccine (1 - Risk 60-74 years 1-dose series) 2024 Diabetes Screening 12/01/2026 12/01/2023, 1 , 02/10/2019, Additional history exists Shingrix Vaccine Completed 06/09/2022, 03/17/2022 Hepatitis C Screening Completed 12/01/2023 , 12/01/2023, 08/29/2015 Influenza Vaccine Completed 10/11/2024, , 10/28/2019, Additional history exists Procedures Procedure Name Priority Date/Time Associated Diagnosis Comments HEPATITIS C ANTIBODY IA WITH CONFIRMATION Routine 12/01/2023 5:00 PM EST Rheumatoid arthritis 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) COMPREHENSIVE METABOLIC PANEL Routine 12/01/2023 5:00 PM EST Rheumatoid arthritis 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) from Last 3 Months or Most Recently Relevant to Health Maintenance Results * (ABNORMAL) COMP METABOLIC PANEL (12/01/2023 5:00 PM EST) Protein, Total 8.0 6.3 - 8.0 g/dL 12/02/2023 6:09 AM EST [facility] Albumin 3.9 3.9 - 4.9 g/dL 12/02/2023 6:09 AM [facility] Calcium, Total 10.2 8.5 - 10.2 mg/dL 12/02/2023 6:09 AM [facility] Bilirubin, Total 0.3 0.2 - 1.3 mg/dL 12/02/2023 6:09 AM [facility] Alkaline Phosphatase 171(H) 38 - 113 U/L 12/02/2023 6:09 AM [facility] AST 31 14 - 40 U/L 12/02/2023 6:09 AM [facility] ALT 22 10 - 54 U/L 12/02/2023 6:09 AM [facility] Glucose 101(H) 74 - 99 mg/dL 12/02/2023 6:09 AM [facility] Comment: The [place] Diabetes Association (ADA) provides guidance for cutoff [...] Standards of Medical Care in Diabetes 2016, [place] Diabetes Association. Diabetes Care. 2016.39(Suppl 1). BUN 19 9 - 24 mg/dL 12/02/2023 6:09 AM [facility] Creatinine 0.92 0.73 - 1.22 mg/dL 12/02/2023 6:09 AM EST [facility] Sodium 143 136 - 144 mmol/L 12/02/2023 6:09 AM [facility] Potassium 4.1 3.7 - 5.1 mmol/L 12/02/2023 6:09 AM [facility] Chloride 106(H) 97 - 105 mmol/L 12/02/2023 6:09 AM [facility] CO2 25 22 - 30 mmol/L 12/02/2023 6:09 AM [facility] Anion Gap 12 9 - 18 mmol/L 12/02/2023 6:09 AM [facility] Estimated Glomerular Filtration Rate 96 >=60 mL/min/1.7 3m 12/02/2023 6:09 AM [facility] Comment:Estimated Glomerular Filtration Rate (eGFR) is calculated using the 2020 CKD-EPI creatinine equation. This equation utilizes serum creatinine, sex, and age as parameters. The creatinine assay has traceable calibration to isotope dilution- mass spectrometry. Refer to KDIGO guidelines for clinical interpretation. In patients with unstable renal function, e.g. those with acute kidney injury, the eGFR may not accurately reflect actual GFR. Blood BLOOD SPECIMEN / Unknown Venipuncture / Unknown 12/01/2023 5:00 PM EST 12/01/2023 5:02 PM EST us [facility] Final Res ult [facility] [address] [place] [address], * HEPATITIS C ANTIBODY IA WITH CONFIRMATION (12/01/2023 5:00 PM EST) Hep C Antibody IA Negative Negative 12/02/2023 9:58 AM [facility] Comment:The result suggests no evidence of active infection with Hepatitis C virus. Should recent infection be suspected, repeat testing may be considered 4-6 weeks after this draw. Blood BLOOD SPECIMEN / Unknown Venipuncture / Unknown 12/01/2023 5:00 PM EST 12/01/2023 5:02 PM EST us Nidia [facility] MONIT[facility].[employer] Final Res ult [facility] [address] [facility] [address] [place] [address], [place] from Last 3 Months or Most Recently Relevant to Health Maintenance Insurance [facility] Care Teams It Systems Administrator Relationship Specialty Start Date End Date Norm Wang MD PCP - General Family Medicine 01/18/14
--- OUTSIDE RECORDS SUMMARY | 2025-04-13 15:31 | XMS_ITS | Encounter Summary ---
Author Organization [facility] Address [address] [place] [id number] Care Team Providers Care Weatherization Installer Name Role Phone Norm Wang MD Primary Care Provider [phone] Source Comments In the event this information is protected by the Federal Confidentiality of Alcohol and Drug AbusePatient Records regulations: The Federal rules restrict any use of the information to criminally investigate or prosecute any alcohol or drug abuse patient.[facility] Reason for Visit * Reason Comments Radiology XR Encounter Details Date Type Department Care Team (Late st Contact Info) Description 03/14/2024 Radiology Radiology [address] [place] [address] Ant Cesar RT(R) Radiology XR Social History Tobacco Use Types Packs/Day Years Used Date Smoking Tobacco: Former Smokeless Tobacco: Never Comments:quit in 2011 Alcohol Use Standard Drinks/Week [...] Score (1-100), lower number is lower ri 87 05/04/2023 State Score (1-10), lower number is lower risk 8 05/04/2023 Data from: https://www.neighborhoodatlas.medicine.[facility].edu/. Last address used for calculation Melissa BRAVO 05/04/2023 Sex and Gender Information Value Date Recorded Sex Assigned at Not on file Legal Sex Male 3:19 PM EST Gender Identity Not on file Sexual Orientation Not on file documented as of this encounter Progress Notes * Ant Cesar RT(R) - 03/14/2024 11:11 AM EDT Radiology Service Progress Note PATIENT NAME: James Toscano DATE OF SERVICE: March 14, 2024 TIME: 11:11 AM PATIENT IDENTITY VERIFICATION COMPLETED USING TWO (2) IDENTIFIERS: Name and Date of confirmedby patient verbally. FALL SCREENING: Has the patient had 2 falls in the last year or 1 fall with injury or currently using an Ambulatory Assistive Device (Walker, Cane, Wheelchair, Crutches, etc.)? No PATIENT GENDER DATA: Male PATIENT RELEVANT IMPLANT DATA REVIEWED: Not Applicable PATIENT PRESENTS WITH AN IMPLANTABLE OR ATTACHED DEVELOPER ARCHITECT: No RADIOLOGY DEPARTMENT: General X-ray: Exam(s) Completed: Upper Extremity X- Ray(s): Hand, bilateral PERIPHERAL IV DATA: Not applicable SIGNED BY: RT Haim(R) March 14, 2024 11:11 AM documented in this encounter Plan of Treatment Upcoming Encounters Date Type Department Care Team (Late st Contact Info) Description 05/23/2025 8:00 AM EDT Results Only [facility] [address] [place] [address] [place] [address] labs 06/06/2025 7:45 AM EDT Appointment Radiology [address] [place] [id number] Seropositive rheumatoid arthritis (HCC) [M05.9] 06/06/2025 8:20 AM EDT Office Visit Rheumatology [address] [facility] [place] [address] Darrian Dubon MD [address] [facility] [place] [address] Return for May 2025 for RA and OP and review of DXA. 10/31/2025 10:00 AM EST Office Visit Rheumatology [address] [facility] [place] [address] Darrian Dubon MD [address] [place] [address] Please also offer another apt later in 2024 or early 2025 (please use 30 min slot) for RA/OP documented as of this encounter Visit Diagnoses Not on filedocumented in this encounter Care Teams Weatherization Installer Relationship Specialty Start Date End Date Norm Wang MD PCP - General Family Medicine 01/18/14 documented as of this encounter
--- OUTSIDE RECORDS SUMMARY | 2025-04-13 15:31 | XMS_ITS | Clinical Summary ---
Author Organization [facility] Address [address] [place] [address] Care Team Providers Care Aws Consultant Name Role Phone Unavailable Primary Care Provider Unavailabl e Social History Tobacco Use Types Packs/Day Years Used Date Smoking Tobacco: Never Assessed Sex and Gender Information Value Date Recorded Sex Assigned at Not on file Gender Identity Not on file Sexual Orientation Not on file Plan of Treatment Not on file
--- OUTSIDE RECORDS SUMMARY | 2025-04-13 15:31 | XMS_ITS | Referral Summary ---
Author Organization [facility] Address [address] [place] [address] Care Team Providers Care Heel Seat Trimmer Name Role Phone Unavailable Primary Care Provider Unavailabl e Social History Tobacco Use Types Packs/Day Years Used Date Smoking Tobacco: Never Assessed Sex and Gender Information Value Date Recorded Sex Assigned at Not on file Gender Identity Not on file Sexual Orientation Not on file Plan of Treatment Not on file
--- OUTSIDE RECORDS SUMMARY | 2025-04-13 15:32 | XMS_ITS | Patient Health Record ---
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 Phone Toi Lackey Primary Care Provider [phone] Allergies No Known Allergies Results Component Value Reference Range Notes LIPID PROFILE Reviewed date:10/11/2024 06:03:50 PM Interpretation: Performing Lab: Notes/Report: [facility] , Triglycerides 47 <=150 mg/dL Cholesterol 135 <=200 mg/dL HDL Cholesterol 57 40-60 mg/dL > or =60 mg/dl - LOW CARDIOVASCULAR RISK <40 mg/dl - HIGH CARDIOVASCULAR RISK LDL Cholesterol Calculated 68.6 100-129 mg/dl NEAR OR ABOVE OPTIMAL <100 mg/dl OPTIMAL 160-189 mg/dl HIGH >190 mg/dl VERY HIGH 130-159 mg/dl BORDERLINE HIGH VLDL CHOLESTEROL 9.4 Chol HDL Ratio 2.4 3.3 - 4.4 LOW RISK 4.4 - 7.1 AVERAGE RISK >11.0 HIGH RISK 7.1 - 11.0 MODERATE RISK Performing Lab: see note ML - [facility] LB PROF 14(COMP METB) Reviewed date:10/11/2024 06:03:50 PM Interpretation: Performing Lab: Notes/Report: [facility] , Sodium 143 136-145 mmol/L Potassium 4.3 3.5-5.1 mmol/L Chloride 107 98-107 mmol/L Carbon Dioxide 26.5 21.0-32.0 mmol/L Anion Gap 13.8 Glucose 114 74-106 mg/dL Blood Urea Nitrogen 14.0 7.0-18.0 mg/dL Creatinine 1.01 0.70-1.30 mg/dL Estimated GFR ( Emilie >60 >=60 mL/min/1.73m 2 Estimated GFR (Non- Lisa >60 >=60 mL/min/1.73m 2 BUN Creatinine Ratio 13.9 Calcium 9.4 8.5-10.1 mg/dL Bilirubin Total 0.4 0.2-1.0 mg/dL Aspartate Amino Transferase 23 15-37 U/L Alanine Aminotransferase 25 16-63 U/L Alkaline Phosphatase 139 46-116 U/L Total Protein 7.6 6.4-8.2 g/dL Albumin Level 3.5 3.4-5.0 g/dL Globulin 4.1 Albumin Globulin Ratio 0.9 Performing Lab: see note ML - [facility] LB XR cervical spine 2-3V Reviewed date:01/24/2025 09:27:09 AM Interpretation: Performing Lab: Notes/Report: Source Facility: [place] [address] XRay Report Signed Patient: JAMES SHANKS MR#: [id number] : 1965 Acct:[id number] Age/Sex: 59 / M ADM Date: 01/23/25 Loc: RAD Attending Dr: Jose L Lackey M.D. Ordering Physician: Jose L Lackey M.D. Date of Service: 01/23/25 Procedure(s): XR cervical spine 2-3V Accession Number(s): [id number] cc: Jose L Lackey M.D. [place] [address] Patient Name: JAMES SHANKS MRN: [id number]:[id number] date: 1965 Sex: M Assigned Patient Location: [facility] Current Patient Location: RAD Accession/Order Number: [id number] Exam Date: 01/23/2025 21:06 Report Date: 01/23/2025 21:09 At the request of: JOSE L LACKEY MD Procedure: XR cervical spine 2-3V 3 viewscervical spine HISTORY: Posterior neck pain COMPARISON: 09/24/2022 POSTOPERATIVE CHANGES: None BONY ALIGNMENT: Continued straightening of cervical lordosis HYPERMOBILITY::No bending imaging. LISTHESIS:Similar mild degenerative listhesis FRACTURE: None DISC DEGENERATION: Extensive C4-5 and C5-6 spondylosis FACETS: Multilevel facet degeneration FORAMEN: Not assessed DENS: Intact CRANIOCERVICAL JUNCTION: Unremarkable SOFT TISSUES: Unremarkable XR/XR cervical spine 2-3V IMPRESSION: Similar Extensive C4-5 and C5-6 spondylosis. Similar straightening of cervical lordosis with mild midcervical degenerative listhesis Impression dictated by: Ta Finn M.D.01/23/2025 9:09 PM Dictation Location: [place] [address] Electronically authenticated by: [id number] Y Date: 01/23/2025 21:09 Dictated By: Ta Finn D.O. 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 Ordering Physician: Jose L Lackey M.D. Date of Service: 01/23/25 Procedure(s): XR cervical spine 2-3V Accession Number(s): [id number] cc: Jose L Lackey M.D. [place] [address] Patient Name: JAMES SHANKS MRN: [id number] date: 1965 Sex: M Assigned Patient Location: [facility] Current Patient Location: RAD Accession/Order Numb er: [id number] Exam Date: 01/23/2025 21:06 Report Date: 01/23/2025 21:09 At the request of: JOSE L LACKEY MD Procedure: XR cervic al spine 2-3V 3 viewscervical spine HISTORY: Posterior n enzo pain COMPARISON: 09/24/2022 POSTOPERATIVE CHANGE S: None BONY ALIGNMENT: Continued straightening of cervical lordosis HYPERMOBILITY::No bending imaging. LISTHESIS:Similar mi ld degenerative listhesis FRACTURE: None DISC DEGENERATION: Extensive C4-5 and C5-6 spondylosis FACETS: Multilevel f acet degeneration FORAMEN: Not assessed DENS: Intact CRANIOCERVICAL JUNCT ION: Unremarkable SOFT TISSUES: Unremarkable X R/XR cervical spine 2-3V IMPRESSION: Similar Extensive C4-5 and C5-6 spondylosis. Similar straightening of cervical lordosis with mild midcervical degenerative listhesis Impression dictated by: Ta Finn M.D.01/23/2025 9:09 PM Dictation Location: [facility] Electronically authenticated by: [id number] Y Date: 01/23/2025 21:09 Dictated By: Ta Finn D.O. 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 [employer]: CBC AUTO DIFF Reviewed date:03/01/2025 08:13:49 PM Interpretation: Performing Lab: Notes/Report: [facility] , White Blood Count 8.0 4.0-11.0 10 [...] 3/uL Performing Lab: see note ML - [facility] LB IRON Reviewed date:03/01/2025 08:13:49 PM Interpretation: Performing Lab: Notes/Report: [facility] , Iron 20.0 65.0-175.0 ug/dL Performing Lab: see note ML - [facility] LB CRP Reviewed date:05/02/2024 02:25:42 PM Interpretation: Performing Lab: Notes/Report: [facility] , C Reactive Protein <0.50 <=0.50 mg/dL Performing Lab: see note ML - [facility] RENAL FUNCTION PANEL Reviewed date:05/02/2024 02:25:42 PM Interpretation: Performing Lab: Notes/Report: [facility] , Sodium 142 136-145 mmol/L Potassium 3.8 3.5-5.1 mmol/L Chloride 107 98-107 mmol/L Carbon Dioxide 28.3 21.0-32.0 mmol/L Anion Gap 10.5 Glucose 109 74-106 mg/dL Blood Urea Nitrogen 15.0 7.0-18.0 mg/dL Creatinine 0.94 0.70-1.30 mg/dL Estimated GFR ( Emilie >60 >=60 Estimated GFR (Non- Lisa >60 >=60 BUN Creatinine Ratio 16.0 Calcium 8.7 8.5-10.1 mg/dL Phosphorus 2.4 2.6-4.7 mg/dL Albumin Level 3.4 3.4-5.0 g/dL Performing Lab: see note ML - [facility] LB Erythrocyte Sedimentation Ra te Reviewed date:05/02/2024 02:25:42 PM Interpretation: Performing Lab: Notes/Report: [facility] , Erythrocyte Sedimentation Rate 79 <=20 mm/hr Performing Lab: see note ML - [facility] XR abdomen 1V Reviewed date:11/16/2024 03:45:41 PM Interpretation: Performing Lab: Notes/Report: Source Facility: [facility]-[address] [place] [address] The [place] [id number] XRay Report Signed Patient: JAMES SHANKS MR#: [id number] : 1965 Acct:[id number] Age/Sex: 59 / M ADM Date: 11/14/24 Loc: RAD Attending Dr: Mariajose Brito FIRST ASSISTANT Ordering Physician: Mariajose Brito NP Date of Service: 11/14/24 Procedure(s): XR abdomen 1V Accession Number(s): [id number] cc: Mariajose Brito FIRST ASSISTANT; Jose L Lackey M.D. [place] [address] Patient Name: JAMES SHANKS MRN: [facility]:[id number] date: 1965 Sex: M Assigned Patient Location: RAD Current Patient Location: Accession/Order Number: [id number] Exam Date: 11/14/2024 12:10 Report Date: 11/15/2024 07:13 At the request of: MARIAJOSE BRITO Procedure: XR abdomen 1V EXAMINATION: XR abdomen 1V HISTORY: Kidney Stone COMPARISON: No relevant comparison available. FINDINGS: KIDNEY/URETER - RIGHT: No visible renal or ureteral calcifications. KIDNEY/URETER - LEFT: No visible renal or ureteral calcifications. PELVIS: No visible ureteral calcifications. Any visible calcifications favor phleboliths. BOWEL: No abnormal dilation or deviation. BONES: No acute abnormality. Degenerative spondylosis. Right hip arthroplasty OTHER: Negative. No abnormal gaseous collections. XR/XR abdomen 1V IMPRESSION: No definite urinary tract calculi Electronically authenticated by: KALEIGH CANTOR Date: 11/15/2024 07:13 Dictated By: Kaleigh Cantor M.D. 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 [place] [address] Patient Name: JAMES SHANKS MRN: [id number] date: 1965 Sex: M Assigned Patient Location: RAD Current Patient Location: Accession/Order Numb er: [id number] Exam Date: 12:10 Report Date: 11/15/2024 07:13 At the request of: MARIAJOSE BRITO Procedure: XR abdomen 1V EXAMINATION: XR abdo men 1V HISTORY: Kidney Stone COMPARISON: No relev ant comparison available. FINDINGS: KIDNEY/URETER - RIGH T: No visible renal or ureteral calcifications. KIDNEY/URETER - LEFT : No visible renal or ureteral calcifications. PELVIS: No visible ureteral calcifications. Any visible calcifications favor phleboliths. BOWEL: No abnormal dilation or deviation. BONES: No acute abnormality. Degenerative spondylosis. Right hip arthroplasty OTHER: Negative. No abnormal gaseous collections. X R/XR abdomen 1V IMPRESSION: No definite urinary tract calculi Electronically authenticated by: KALEIGH CANTOR Date: 11/15/2024 07:13 Dictated By: Champ Cantor M.D. 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 Ordering Physician: Marcin Ramírez M.D. Date of Service: 11/25/24 Procedure(s): CT abdomen pelvis wo con Accession Number(s): [id number] cc: Jose L Lackey M.D. The [address] [address] Patient Name: JAMES SHANKS MRN: [id number] date: 1965 Sex: M Assigned Patient Location: CT Current Patient Location: CT Accession/Order Number: [id number] Exam Date: 11/25/2024 13:15 Report Date: 11/25/2024 13:40 At the request of: MARCIN RAMÍREZ Procedure: CT abdomen pelvis wo con EXAM: CT abdomen pelvis wo con HISTORY: Ureteral Stone With Hydronephrosis, Kidney Stone COMPARISON: None. TECHNIQUE: Axial soft tissue windows of the abdomen and pelvis with coronal and sagittal reformats. CT dose reduction technique was used including Automated Exposure Control. Findings: Lack of intravenous contrast limits evaluation. Partially visualized patchy consolidation within the right middle and lower lobes. ABDOMEN: The liver, gallbladder, spleen, and adrenal glands are unremarkable. The pancreas is atrophic. Mild nonis a cystic bilateral perinephric fat stranding. Bilateral renal cysts. No left-sided renal stones. Nonobstructing right renal stones. The largest measures 0.4 cm. No renal collecting system or ureteral dilatation bilaterally. Evaluation of the bowel is limited given the absence of oral contrast. There are colonic diverticula. No bowel obstruction. The appendix is nondilated. The aorta is normal caliber. No enlarged abdominal lymph nodes or free abdominal fluid. Pelvis: Evaluation is limited due to streak artifact generated by the right hip arthroplasty. Grossly unremarkable bladder. The prostate is enlarged. No visualized enlarged pelvic lymph nodes. No free pelvic fluid. No aggressive sclerotic or lytic osseous lesions. Multilevel degenerative spondylosis. CT/CT abdomen pelvis wo con IMPRESSION: 1. Patchy consolidation within the right middle and lower lobes concerning for pneumonia. 2. Nonobstructing right renal stones. 3. Other nonemergent findings, as described above. Electronically authenticated by: DAMION CASANOVA Date: 11/25/2024 13:40 Dictated By: Damion Casanova M.D. 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 Ordering Physician: Marcin Ramírez M.D. Date of Service: 11/25/24 Procedure(s): CT abd omen pelvis wo con Accession Number(s): [id number] cc: Jose L Lackey M.D. The [address] [address] Patient Name: JAMES SHANKS MRN: [id number] date: 1965 Sex: M Assigned Patient Location: CT Current Patient Location: CT Accession/Order Numb er: [id number] Exam Date: 11/25/2024 13:15 Report Date: 11/25/2024 13:40 At the request of: MARCIN RAMÍREZ Procedure: CT abdome n pelvis wo con EXAM: CT abdomen pel vis wo con HISTORY: Ureteral St one With Hydronephrosis, Kidney Stone COMPARISON: None. TECHNIQUE: Axial sof t tissue windows of the abdomen and pelvis with coronal and sagittal reformats. CT dose reduction technique was used including Automated Exposure Control. Findings: Lack of intravenous contrast limits evaluation. Partially visualized patchy consolidation within the right middle and lower lobes. ABDOMEN: The liver, gallbladd er, spleen, and adrenal glands are unremarkable. The pancreas is atrophic. Mild nonis a cystic bilateral perinephric fat stranding. Bilateral renal cysts. No left-sided renal stones. Nonobstructing right renal stones. The largest measures 0.4 cm. No renal collecting system or ureteral dilatation bilaterally. Evaluation of the kris wel is limited given the absence of oral contrast. There are colonic divertic prince. No bowel obstruction. The appendix is nondilated. The aorta is normal caliber. No enlarged abdomina l lymph nodes or free abdominal fluid. Pelvis: Evaluation is limite d due to streak artifact generated by the right hip arthroplasty. Grossly unremarkable bladder. The prostate is enlarged. No visualized enlarg ed pelvic lymph nodes. No free pelvic fluid. No aggressive sclero tic or lytic osseous lesions. Multilevel degenerative spondylosis. C T/CT abdomen pelvis wo con IMPRESSION: 1. Patchy consolidat ion within the right middle and lower lobes concerning for pneumonia. 2. Nonobstructing ri ght renal stones. 3. Other nonemergent findings, as described above. Electronically authenticated by: DAMION CASANOVA Date: 11/25/2024 13:40 Dictated By: Damion Casanova M.D. 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 [employer]: CBC AUTO DIFF Reviewed date:01/16/2025 09:43:15 PM Interpretation: Performing Lab: Notes/Report: [facility] , White Blood Count 8.5 4.0-11.0 10 3/uL Red Blood Count 4.29 4.70-6.10 10 6/uL Hemoglobin 13.2 14.0-18.0 g/dL Hematocrit 40.9 42.0-54.0 % Mean Corpuscular Volume 95.3 80.0-94.0 fL Mean Corpuscular Hemoglobin 30.8 25.9-34.0 pg Mean Corpuscular HGB Conc 32.3 29.9-35.2 g/dL Red Cell Distribution Width 14.5 11.0-15.0 % Platelet Count 318 150-450 10 3/uL Mean Platelet Volume 8.7 9.5-13.5 fL Neutrophils Percent Auto 60.3 43.0-75.0 % Lymphocytes Percent Auto 28.4 20.5-60.0 % Monocytes Percent Auto 10.7 1.7-12.0 % Eosinophils Percent Auto 0.0 0.9-7.0 % Basophils Percent Auto 0.4 0.2-2.0 % Immature Granulocytes Pct Auto 0.2 0.0-0.5 % Neutrophils Absolute Auto 5.1 1.4-6.5 10 3/uL Lymphocytes Absolute Auto 2.4 1.2-3.8 10 3/uL Monocytes Absolute Auto 0.9 0.3-0.8 10 3/uL Eosinophils Absolute Auto 0.0 0.0-0.7 10 3/uL Basophils Absolute Auto 0.0 0.0-0.1 10 3/uL Immature Granulocytes Abs Auto 0.02 0.00-0.03 10 3/uL Performing Lab: see note ML - [facility] LB XR shoulder MELISSA min 2V Reviewed date:01/24/2025 04:03:52 PM Interpretation: Performing Lab: Notes/Report: Source Facility: [facility]-[address] [place] [address] XRay Report Signed Patient: JAMES SHANKS MR#: [id number] : 1965 Acct:[id number] Age/Sex: 59 / M ADM Date: 01/23/25 Loc: RAD Attending Dr: Jose L Lackey M.D. Ordering Physician: Jose L Lackey M.D. Date of Service: 01/23/25 Procedure(s): XR shoulder MELISSA min 2V Accession Number(s): [id number] cc: Jose L Lackey M.D. [place] [address] Patient Name: JAMES SHANKS MRN: [facility]:[id number] date: 1965 Sex: M Assigned Patient Location: [facility] Current Patient Location: Accession/Order Number: [id number] Exam Date: 01/23/2025 21:02 Report Date: 01/24/2025 15:15 At the request of: JOSE L LACKEY MD Procedure: XR shoulder MELISSA min 2V 3 views both shoulders HISTORY: Acute bilateral shoulder pain with radiation of the neck Marked right glenohumeral degeneration. Joint space narrowing with widening of the glenoid and marginal spurring. Marked acromiohumeral joint space narrowing. Remodeling of the undersurface of acromion. The findings are consistent with chronic rotator cuff tear. Inferior spurring of acromioclavicular joint. Extensive left glenohumeral degeneration joint space narrowing widening of the glenoid and marginal spurring. Marked narrowing of the left acromiohumeral space with remodeling of undersurface of the acromion. Findings consistent with chronic rotator cuff tear. Mild left acromioclavicular degeneration. No acute bony findings. No soft tissue abnormality. XR/XR shoulder MELISSA min 2V IMPRESSION: Extensive bilateral glenohumeral degeneration. Findings of chronic bilateral rotator cuff tears as above. Impression dictated by: Ta Finn M.D.01/24/2025 3:15 PM Dictation Location: [place] [address] Electronically authenticated by: [id number] Y Date: 01/24/2025 15:15 Dictated By: Ta Finn D.O. 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 Ordering Physician: Jose L Lackey M.D. Date of Service: 01/23/25 Procedure(s): XR shoulder MELISSA min 2V Accession Number(s): [id number] cc: Jose L Lackey M.D. [place] [address] Patient Name: JAMES SHANKS MRN: [facility]:[id number] date: 1965 Sex: M Assigned Patient Location: [facility] Current Patient Location: Accession/Order Numb er: [id number] Exam Date: 01/23/2025 21:02 Report Date: 01/24/2025 15:15 At the request of: JOSE L LACKEY MD Procedure: XR should er MELISSA min 2V 3 views both shoulders HISTORY: Acute bilat eral shoulder pain with radiation of the neck Marked right glenohumeral degeneration. Joint space narrowing with widening of the glenoid and marginal spurring. Marked acromiohumeral joint space narrowing. Remodelin g of the undersurface of acromion. 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 Inferior spurring of acromioclavicular joint. Extensive left glenohumeral degeneration joint space narrowing widening of the glenoid and marginal spurring. Marked narrowing of the left acromiohumeral space with remodelin g of undersurface of the acromion. Findings consistent with chronic rotator cuff tear. Mild left acromioclavicular degeneration. No acute bony findings. No soft tissue abnormality. X R/XR shoulder MELISSA min 2V IMPRESSION: Extensiv e bilateral glenohumeral degeneration. Findings of chronic bilateral rotator cuff tears as above. Impression dictated by: Ta Finn M.D.01/24/2025 3:15 PM Dictation Location: [place] [address] Electronically authenticated by: [id number] Y Date: 01/24/2025 15:15 Dictated By: Ta Finn D.O. 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[employer]: [place] Reviewed date:01/26/2025 07:47:19 PM Interpretation: Performing Lab: Notes/Report: [facility] , Ferritin 504.0 26.0-388.0 ng/mL Performing Lab: see note ML - [facility] LB IRON Reviewed date:01/26/2025 07:47:19 PM Interpretation: Performing Lab: Notes/Report: [facility] , Iron 37.0 65.0-175.0 ug/dL Performing Lab: see note ML - [facility] LB MR cervical spine wo con Reviewed date:02/04/2025 12:01:00 PM Interpretation: Performing Lab: Notes/Report: Source Facility: [place] [address] [place] [address] Magnetic Resonance Report Signed Patient: JAMES SHANKS MR#: [id number] : 1965 Acct:[id number] Age/Sex: 59 / M ADM Date: 02/03/25 Loc: MRI Attending Dr: Jose L Lackey M.D. Ordering Physician: Jose L Lackey M.D. Date of Service: 02/03/25 Procedure(s): MR cervical spine wo con Accession Number(s): [id number] cc: Jose L Lackey M.D. [place] [id number] Patient Name: JAMES SHANKS MRN: [id number] date: 1965 Sex: M Assigned Patient Location: MRI Current Patient Location: MRI Accession/Order Number: [id number] Exam Date: 02/03/2025 14:31 Report Date: 02/03/2025 14:34 At the request of: JOSE L LACKEY MD Procedure: MR cervical spine wo con EXAMINATION: MRI C-SPINE WITHOUT IV CONTRAST CLINICAL HISTORY: Cervical Radiculopathy, Cervical Radiculopathy COMPARISON: Chronic cervical pain radiating into left arm with weakness. TECHNIQUE: Multiecho imaging was performed in the sagittal and axial planes without contrast administration. FINDINGS: Vertebral heights appear maintained. No bone marrow edema is seen. The vallecula during junction appears normal. No abnormal cord signal. No paraspinal mass. No prevertebral soft tissue swelling. At C2-3: No posterior disc pathology. No neural canal or foraminal stenosis. At C3-4: Mild disc osteophyte complex present causing no significant canal or neural foraminal stenosis. At C4-5: Mild disc osteophyte complex present causing no significant canal or neural foraminal stenosis. At C5-6: No posterior disc pathology. No neural canal or foraminal stenosis. At C6-7: Mild disc osteophyte complex present causing no significant canal or neural foraminal stenosis. At C7-T1: No posterior disc pathology. No neural canal or foraminal stenosis. MR/MR cervical spine wo con IMPRESSION: Mild degenerative changes involving the cervical spine as described above without severe canal or neural foraminal stenosis. Impression dictated by: Anil Tillman Jr., DBrittneyOBrittney02/03/2025 2:34 PM Dictation Location: [place] [address] Electronically authenticated by: [id number] Y Date: 02/03/2025 14:34 Dictated By: Anil Tillman M.D. 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 Ordering Physician: Jose L Lackey M.D. Date of Service: 02/03/25 Procedure(s): MR cervical spine wo con Accession Number(s): [id number] cc: Jose L Lackey M.D. [place] [address] Patient Name: JAMES SHANKS MRN: [facility]:[id number] date: 1965 Sex: M Assigned Patient Location: MRI Current Patient Location: MRI Accession/Order Numb er: [id number] Exam Date: 02/03/2025 14:31 Report Date: 02/03/2025 14:34 At the request of: JOSE L LACKEY MD Procedure: MR cervic al spine wo con EXAMINATION: MRI C-S PINE WITHOUT IV CONTRAST CLINICAL HISTORY: Cervical Radiculopathy, Cervical Radiculopathy COMPARISON: Chronic cervical pain radiating into left arm with weakness. TECHNIQUE: Multiecho imaging was performed in the sagittal and axial planes without contrast administration. FINDINGS: Vertebral heights appear maintained. No bone marrow edema is seen. The vallecula during junction appears normal. No abnormal cord signal. No paraspinal mass. No prevertebral soft tissue swelling. At C2-3: No posterio r disc pathology. No neural canal or foraminal stenosis. At C3-4: Mild disc osteophyte complex present causing no significant canal or neural foraminal stenosis. At C4-5: Mild disc osteophyte complex present causing no significant canal or neural foraminal stenosis. At C5-6: No posterio r disc pathology. No neural canal or foraminal stenosis. At C6-7: Mild disc osteophyte complex present causing no significant canal or neural foraminal stenosis. At C7-T1: No posteri or disc pathology. No neural canal or foraminal stenosis. M R/MR cervical spine wo con IMPRESSION: Mild degenerative changes involving the cervical spine as described above with out severe canal or neural foraminal stenosis. Impression dictated by: Anil Tillman Jr., D.OBrittney02/03/2025 2:34 PM Dictation Location: [facility] [employer] Electronically authenticated by: [id number] Y Date: 02/03/2025 14:34 Dictated By: Anil Tillman M.D. Signed By: 02/03/25 1437 DD/ 143 TD/TT: [employer]ing [employer] Operator [employer]: TSH Reviewed date:12/21/2024 12:30:36 PM Interpretation: Performing Lab: Notes/Report: [facility] , Thyroid Stimulating Hormone 2.130 0.358-3.740 uIU/mL Performing Lab: see note ML - [facility] LB T4 Reviewed date:12/21/2024 12:30:36 PM Interpretation: Performing Lab: Notes/Report: [facility] , T4 Thyroxine 9.50 4.50-12.10 ug/dL Performing Lab: see note ML - [facility] LB PSA SCREENING Reviewed date:12/21/2024 12:30:36 PM Interpretation: Performing Lab: Notes/Report: [facility] , Prostate Specific Antigen Scrn 2.84 <=4.00 ng/mL Performing Lab: see note ML - [facility] LB PROF 14(COMP METB) Reviewed date:12/21/2024 12:30:36 PM Interpretation: Performing Lab: Notes/Report: [facility] , Sodium 143 136-145 mmol/L Potassium 4.6 3.5-5.1 mmol/L Chloride 107 98-107 mmol/L Carbon Dioxide 29.4 21.0-32.0 mmol/L Anion Gap 11.2 Glucose 114 74-106 mg/dL Blood Urea Nitrogen 14.0 7.0-18.0 mg/dL Creatinine 0.95 0.70-1.30 mg/dL Estimated GFR ( Emilie >60 >=60 mL/min/1.73m 2 Estimated GFR (Non- Lisa >60 >=60 mL/min/1.73m 2 BUN Creatinine Ratio 14.7 Calcium 8.9 8.5-10.1 mg/dL Bilirubin Total 0.3 0.2-1.0 mg/dL Aspartate Amino Transferase 23 15-37 U/L Alanine Aminotransferase 30 16-63 U/L Alkaline Phosphatase 111 46-116 U/L Total Protein 7.0 6.4-8.2 g/dL Albumin Level 3.5 3.4-5.0 g/dL Globulin 3.5 Albumin Globulin Ratio 1.0 Performing Lab: see note ML - [facility] FREE T3 Reviewed date:12/21/2024 12:30:36 PM Interpretation: Performing Lab: Notes/Report: [facility] , Free T3 2.32 2.18-3.98 pg/mL Performing Lab: see note - [facility] VITAMIN D 25 OH Reviewed date:05/02/2024 02:25:42 PM Interpretation: Performing Lab: Notes/Report: [facility] , Vitamin D 51.4 30-100 ng/mL Vit D sufficient 20-<30 ng/mL Vit D insufficient >100 ng/mL Potential Toxicity <20 ng/mL Vit D deficient Performing Lab: see note ML - [facility] LIPID PROFILE Reviewed date:12/21/2024 12:30:36 PM Interpretation: Performing Lab: Notes/Report: [facility] , Triglycerides 31 <=150 mg/dL Cholesterol 143 <=200 mg/dL HDL Cholesterol 80 40-60 mg/dL <40 mg/dl - HIGH CARDIOVASCULAR RISK > or =60 mg/dl - LOW CARDIOVASCULAR RISK LDL Cholesterol Calculated 57.0 >190 mg/dl VERY HIGH <100 mg/dl OPTIMAL 160-189 mg/dl HIGH 130-159 mg/dl BORDERLINE HIGH 100-129 mg/dl NEAR OR ABOVE OPTIMAL VLDL CHOLESTEROL 6.2 Chol HDL Ratio 1.8 7.1 - 11.0 MODERATE RISK >11.0 HIGH RISK 3.3 - 4.4 LOW RISK 4.4 - 7.1 AVERAGE RISK Performing Lab: see note ML - [facility] LB GLYCOHEMOGLOBIN A1C Reviewed date:12/21/2024 12:30:36 PM Interpretation: Performing Lab: Notes/Report: [facility] , Glycohemoglobin A1C 5.1 4.5-6.2 % ADA RECOMMENDED LIMIT 4.0 - 6.0 ACTION SUGGESTED > 7.0 ADA THERAPEUTIC TARGET < 7.0 Estimated Average Glucose 100 Performing Lab: see note ML - [facility] CBC AUTO DIFF Reviewed date:12/21/2024 12:30:36 PM Interpretation: Performing Lab: Notes/Report: [facility] , White Blood Count 5.9 4.0-11.0 10 3/uL Red Blood Count 4.07 4.70-6.10 10 6/uL Hemoglobin 12.5 14.0-18.0 g/dL Hematocrit 38.7 42.0-54.0 % Mean Corpuscular Volume 95.1 80.0-94.0 fL Mean Corpuscular Hemoglobin 30.7 25.9-34.0 pg Mean Corpuscular HGB Conc 32.3 29.9-35.2 g/dL Red Cell Distribution Width 14.9 11.0-15.0 % Platelet Count 248 150-450 10 3/uL Mean Platelet Volume 9.0 9.5-13.5 fL Neutrophils Percent Auto 65.0 43.0-75.0 % Lymphocytes Percent Auto 26.5 20.5-60.0 % Monocytes Percent Auto 8.0 1.7-12.0 % Eosinophils Percent Auto 0.0 0.9-7.0 % Basophils Percent Auto 0.3 0.2-2.0 % Immature Granulocytes Pct Auto 0.2 0.0-0.5 % Neutrophils Absolute Auto 3.8 1.4-6.5 10 3/uL Lymphocytes Absolute Auto 1.6 1.2-3.8 10 3/uL Monocytes Absolute Auto 0.5 0.3-0.8 10 3/uL Eosinophils Absolute Auto 0.0 0.0-0.7 10 3/uL Basophils Absolute Auto 0.0 0.0-0.1 10 3/uL Immature Granulocytes Abs Auto 0.01 0.00-0.03 10 3/uL Performing Lab: see note ML - [facility] LB CBC AUTO DIFF Reviewed date:01/26/2025 07:47:19 PM Interpretation: Performing Lab: Notes/Report: [facility] , White Blood Count 8.5 4.0-11.0 10 3/uL Red Blood Count 3.76 4.70-6.10 10 6/uL Hemoglobin 11.7 14.0-18.0 g/dL Hematocrit 35.4 42.0-54.0 % Mean Corpuscular Volume 94.1 80.0-94.0 fL Mean Corpuscular Hemoglobin 31.1 25.9-34.0 pg Mean Corpuscular HGB Conc 33.1 29.9-35.2 g/dL Red Cell Distribution Width 14.5 11.0-15.0 % Platelet Count 258 150-450 10 3/uL Mean Platelet Volume 8.6 9.5-13.5 fL Neutrophils Percent Auto 72.6 43.0-75.0 % Lymphocytes Percent Auto 18.9 20.5-60.0 % Monocytes Percent Auto 8.1 1.7-12.0 % Eosinophils Percent Auto 0.0 0.9-7.0 % Basophils Percent Auto 0.2 0.2-2.0 % Immature Granulocytes Pct Auto 0.2 0.0-0.5 % Neutrophils Absolute Auto 6.2 1.4-6.5 10 3/uL Lymphocytes Absolute Auto 1.6 1.2-3.8 10 3/uL Monocytes Absolute Auto 0.7 0.3-0.8 10 3/uL Eosinophils Absolute Auto 0.0 0.0-0.7 10 3/uL Basophils Absolute Auto 0.0 0.0-0.1 10 3/uL Immature Granulocytes Abs Auto 0.02 0.00-0.03 10 3/uL Performing Lab: see note ML - [facility] Reason For Referral Diagnosis 1 Nephrolithiasis (N20 .0) Referral Organization [facility] Referring Provider First Name Toi Referring Provider Last Name Felipe Referring Provider Speciality Family [facility] beata Referred Provider Marcin Ramírez Referred Provider Specialty Urology Referral Priority Routine Medications Medication SIG (Take, Route, Frequency, Duration) Notes Start Date End Date Status Omeprazole 40 MG TAKE 1 CAPSULE BY [facility] EVERY DAY for 30 days Active Multi Vitamin - 1 tablet Orally Once a day for 30 day(s) 09/11/2023 Active sulfaSALAzine 500 MG 2 tabs Orally 4x a day Active Folic Acid 1 MG TAKE 1 TABLET BY IRMA EVERY DAY for 30 days Active Ferrous [...] BY MOUTH EVERY DAY for 30 Active Turmeric 500 MG 1 capsule Orally TID Active tiZANidine HCl 4 MG 1 tablet Orally qhs for 30 days 01/23/2025 Active predniSONE 10 MG 5 tabs per day for 3 days, 4 tabs per day for 3 ays, 3 tabs perday for 3 days, 2 tabs per day for 3 days, 1 tab a day for 3 days, 1/2 tab a day for 4 days Orally Once a day for 19 days 03/01/2025 Active Ezetimibe 10 MG TAKE 1 TABLET BY IRMA TH EVERY DAY FOR 30 DAYS for 30 Active Entyvio Pen 108 MG/0.68ML inject Subcuta neous every 2 weeks 11/22/2024 Active Vitamin D3 125 MCG (5000 UT) 1 capsule Orally Once a day Active Ferrous Sulfate 325 (65 Fe) MG 1 tablet Orally bid for 30 days 03/02/2025 Active Immunizations Vaccine Route Administration Date Status Comme nts Flu, Flucelvax (17972) 6 mos and older, single-dose syringe IM Intramuscular 10/11/2024 Administered Social History Tobacco Use: Social History Observation Description Date Details (start date - stop date) Former Smoker NA - 12/16/2011 Tobacco Use/Smoking Question Answer Notes Patient is a former smoker When did you stop smoking? 12/16/2011 How long has it been since you last smoked? > 10 years Alcohol Screen (Audit-C) Question Answer Notes Did you have a drink containing alcohol in the p ast year? No Points 0 Interpretation Negative AUDIT-C (Standard) Question Answer Notes Did you have a drink containing alcohol in the p ast year? 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 confirmed Problem 44905894 Ulcerative colitis, unspecified with unspecified complications (K51.919) Active confirmed Problem Cervical radiculopat hy (27768130) Cervical radiculopathy (M54.12) Active confirmed Problem Eczema (03098236) Eczema (L30.9) Active confirm ed Problem Benign essential hypertension (4976680) Benign essential hypertension (I10) Active confirmed Problem Nephrolithiasis (02376367) Nephrolithiasis (N20.0) Active confirmed Problem Well adult (214636466) Well adul t (Z00.00) Active confirmed Problem Chronic pain (11831800) Chronic pain (G89.29) Active confirmed Problem Vitamin D deficiency (82935038) Vitamin D deficiency disease (E55.9) Active confirmed Problem Adult idiopathic generalized osteoporosis (926757866) Adult idiopathic generalized osteoporosis (M81.8) Active confirmed Problem Iron deficiency anem ia (28100918) Anemia, iron deficiency (D50.9) Active confirmed Problem Chronic ulcerative pancolitis (356806506) Chronic pancolonic ulcerative colitis (K51.00) Active confirmed Problem Rheumatoid arthritis (00934683) Arthritis, rheumatoid (M06.9) Active confirmed Problem Pure hypercholesterolemia (523201132) Elevated cholesterol (E78.00) Active confirmed Problem Impingement syndrome of shoulder region (389212774) Shoulder impingement (M25.819) Active confirmed Vital Signs Blood pressure diastolic 78 mm Hg 03/01/2025 Height 66 in 03/01/2025 Blood pressure systolic 146 mm Hg 03/01/2025 Weight 173.8 lbs 03/01/2025 BMI 28.05 kg/m2 03/01/2025 Encounters Encounter Location Date Provider Diagnosis [facility] [address] [place] [address] 04/13/2025 Toi Hoy Arthritis, rheumatoi d M06.9 [facility] [address] [place] [address] 03/01/2025 [facility] [address] [place] [address] 01/24/2025 Toi Hoy Arthritis, rheumatoi d M06.9 and Cervical radiculopathy M54.12 [facility] [address] [place] [address] 01/24/2025 [facility] [address] [place] [address] 01/26/2025 [facility] [address] [place] [address] 02/04/2025 [facility] [address] [place] [address] 02/10/2025 [facility] [address] [place] [address] 02/16/2025 [facility] [address] [place] [address] 12/13/2024 Toi Palmaparmjit [facility] [address] [place] [address] 12/19/2024 Toi Lackey Wellness examination Z01.89 [facility] [address] [place] [place] [address] 12/21/2024 Toi Lackey [facility] [address] [facility]], [place] [address] 12/30/2024 Toi Felipe [facility] [address] [place] [place] [address] 01/16/2025 Toi Lackey Anemia, iron deficie ncy D50.9 [facility] [address] [place] [place] [address] 01/16/2025 Toi Lackey [facility] [address] [place] [place] [address] 08/01/2024 Toi Felipe [facility] [address] [place] [place] [address] 10/11/2024 Toi Lackey [facility] [address] [place] [place] [address] 11/27/2024 Toi Lackey [facility] [address] [place] [place] [address] 01/23/2025 Toi Palmay Cervical radiculopat hy M54.12 and Shoulder impingement M25.819 [facility] [address] [place] [place] [address] 06/02/2024 Toi Hoy Eczema L30.9 [facility] [address] [facility] [place] [address] 11/22/2024 Toi Hoy Arthritis, rheumatoi d M06.9 [facility] [address] [facility] [place] [address] 03/01/2025 Toi Hoy Arthritis, rheumatoi d M06.9 [facility] [address] [facility] [place] [address] 10/11/2024 Toi Palmay Nephrolithiasis N20. 0 and Encounter for immunization Z23 Assessments Encounter Date Diagnosis (ICD Code) Assessment Notes Treatment Notes Treatment Clinical Notes Section Notes 06/02/2024 Eczema (ICD-10 - L30.9) gtrial sterid cream and hydroxuyzine 10/11/2024 Nephrolithiasis (ICD-10 - N20.0) 11/22/2024 Arthritis, rheumatoid (ICD-10 - M06.9) 01/23/2025 Cervical radiculopathy (ICD-10 - M54.12) 01/23/2025 Shoulder impingement (ICD-10 - M25.819) 03/01/2025 Arthritis, rheumatoid (ICD-10 - M06.9) 12/19/2024 Wellness examination (ICD-10 - Z01.89) 01/16/2025 Anemia, iron deficiency (ICD-10 - D50.9) 01/24/2025 Arthritis, rheumatoid (ICD-10 - M06.9) 01/24/2025 Cervical radiculopathy (ICD-10 - M54.12) 04/13/2025 Arthritis, rheumatoid (ICD-10 - M06.9) 10/11/2024 Encounter for immunization (ICD-10 - Z23) Plan Of Treatment Pending Test Test Name Order Date CMP (COMPLETE METABOLIC PANEL) 3 HEMOGLOBIN A1C (GLYCO) 09/11/2023 LIPID PANEL (CHOL/TRIG/HDL/LDL) 09/11/20 23 CBC WITH DIFF 09/11/2023 PSA, PROSTATE-SPECIFIC ANTIGEN 3 MRI Cervical Spine w/o contrast * 2024 FECAL OCCULT BLOOD 12/19/2024 CMP - Comprehensive Metabolic Panel 01/2025 C DIFF PCR - C Difficile Toxin Gene BERNARDO - LC 11/02/2023 CBC W/AUTO DIFF 09/12/2023 CBC W/AUTO DIFF 01/16/2025 FERRITIN 01/16/2025 FERRITIN 09/12/2023 GI PANEL (PCR) 11/02/2023 IRON 09/12/2023 IRON 01/16/2025 OCC BLD IMMUNOASSAY 11/02/2023 PROTIME 11/02/2023 SED RATE WESTERGREN 11/02/2023 XR SHOULDER MELISSA 2V or > 01/23/2025 THYROID PANEL (T4/TSH/FREE T3) 02/03/202 5 THYROID PANEL (T4/TSH/FREE T3) 3 PSA, SCREENING 12/19/2024 Insurance Providers Payer Name Payer Address Payer Phone Subscriber Number Group Number Insured Name Patient Relationship to Insured Coverage Start Date Coverage End Date [employer] [address] [place] [phone] ShantalJames velazquez Self - patient is the insured Medications Administered Medication Instructions Date of Administration Dosage Notes Dexamethasone, 4mg/mL 11/02/2023 3 mL 12 mg Dexamethasone, 4mg/mL 03/01/2025 12 mg Triamcinolone 40 mg/ml 11/22/2024 80 mg 80 mg Medical (General) History Medical History History ICD Code Eczema L30.9 Adult idiopathic generalized osteoporosi s M81.8 Chronic pain G89.29 Rheumatoid arthritis, seropositive M05.9 Cervical lymphadenopathy R59.0 Edema R60.9 Anal bleeding K62.5 Abdominal pain, RUQ R10.11 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
[2025-04-13 15:48] LABS: Basophils Percent Auto 0.4 % (0.2-2.0); Hemoglobin 12.6 g/dL (14.0-18.0); Immature Granulocytes Abs Auto 0.01 10^3/uL (0.00-0.03); Immature Granulocytes Pct Auto 0.1 % (0.0-0.5); Lymphocytes Absolute Auto 1.6 10^3/uL (1.2-3.8); Lymphocytes Percent Auto 15.6 % (20.5-60.0); Mean Corpuscular HGB Conc 33.2 g/dL (29.9-35.2); Mean Corpuscular Hemoglobin 30.6 pg (25.9-34.0); Mean Corpuscular Volume 92.2 fL (80.0-94.0); Mean Platelet Volume 8.3 fL (9.5-13.5); Monocytes Absolute Auto 0.9 10^3/uL (0.3-0.8); Neutrophils Absolute Auto 7.5 10^3/uL (1.4-6.5); Neutrophils Percent Auto 74.9 % (43.0-75.0); Platelet Count 417 10^3/uL (150-450); Red Blood Count 4.12 10^6/uL (4.70-6.10); Red Cell Distribution Width 12.9 % (11.0-15.0)
== END 2025-04-13 15:29 | disposition home or self-care (01) ==
LOC: LAB 15:29
PROVIDERS: PCP Family Medicine; Visit Provider Family Medicine
DX: D50.9 Iron deficiency anemia, unspecified (principal); M06.9 Rheumatoid arthritis, unspecified
CPT/HCPCS: 36415; 83540; 85025

== ENCOUNTER 2025-04-14 09:47 | Outpatient (OUT) | payer OTHER, SELFPAY ==
--- OUTSIDE RECORDS SUMMARY | 2025-04-14 10:08 | XMS_ITS | CCD ---
Author Organization [facility] Care Team Providers Care Nursing Unit Coordinator Name Role Phone Rigo Gonzalez Attending Provider [phone] Jose L Lackey Primary Care Provider Jose L Lackey MD Primary Care Provider [phone] Jose L Lackey MD Primary Care Provider [phone] ZIYAD ., DR DOMINGO Primary Care Unavailable HOY ., DR DOMINGO Consulting Unavailable HOY ., DR DOMINGO Attending Unavailable HOY ., DR DOMINGO Admitting Unavailable [place], DR KALEIGH Strong Consulting Unavailable HOY ., [...] Jose L Lackey MD Primary Care Provider [phone] Kavon Johnson Attending Unavailable Kavon Johnson Attending Unavailable Zoila Castillo Attending Unavailable Fredomini, Luis Antonio Talal Attending Unavaila ble Fredomini, Luis Antonio Talal Referring Unavaila ble Sarmini, Luis Antonio Talal Admitting Unavaila ble Sarmini, Luis Antonio Talal Attending Unavaila ble Sarmini, Luis Antonio Talal Referring Unavaila ble Sarmini, Luis Antonio Talal Admitting Unavaila ble Sarmini, Luis Antonio Talal Attending Unavaila ble Sarmini, Salmon Talal Attending Unavaila ble Sarmini, Luis Antonio Talal Attending Unavaila ble Sarmini, Salmon Talal Admitting Unavaila ble Sarmini, Salmon Talal Attending Unavaila ble Sarmini, Salmon Talal Referring Unavaila ble Sarmini, Salmon Talal Admitting Unavaila ble Sarmini, Salmon Talal Attending Unavaila ble RAMÍREZ, Marcin Maguire Attending Unavailable Jose L Lackey Referring Unavailable RAMÍREZ, Marcin Maguire Attending Unavailable RAMÍREZ, Marcin R Admitting Unavailable Sarmini, Salmon Talal Attending Unavaila ble Sarmini, Luis Antonio Talal Attending Unavaila ble Sarmini, Salmon Talal Admitting Unavaila ble RAMÍREZ, Marcin Maguire Attending Unavailable RAMÍREZ, Marcin R Admitting Unavailable Sarmini, Salmon Talal Attending Unavaila ble Sarmini, Luis Antonio Talal Attending Unavaila ble Sarmini, Salmon Talal Admitting Unavaila ble NIDIA WESTON Attending Unavailable JOSE L LACKEY Primary Care Unavailable NIDIA WESTON Referring Unavailable JOSE L LACKEY Primary Care Unavailable NIDIA WESTON Attending Unavailable JOSE L LACKEY Primary Care Unavailable JOSE L LACKEY Primary Care Unavailable DARRIAN DUBON Attending Unavailable JOSE L LACKEY Primary Care Unavailable DARRIAN DUBON Attending Unavailable JOSE L LACKEY Primary Care Unavailable Jose L Lackey MD Primary Care Provider [phone] JR. VELIZ GEORGE C Attending Unavaila karen VELIZ JR., GEORGE C Referring Unavaila DAMION Brunner Attending Unavailable DAMION MABRY Referring Unavailable DAMION MABRY Attending Unavailable DAMION MABRY Referring Unavailable Unavailable Unavailable Unavailable Allergies Allergy Classification Reported Allergen(s) Allergy Type Date of Onset Reaction(s) Facility (4 sources) No Known Medication Allergies; Translations: [No Known Medication Allergies] Propensity to adverse reactions (disorder) [facility] Repository (3 sources) beta Sitosterol / ZINC CITRATE Drug Allergy 3 Unknown [facility] Medications Current Medications Medication Drug Class(es) Dates Sig (Normalized) Sig (Original) atorvastatin 20 mg oral tablet (20 sources) HMG-CoA Reductase Inhibitor take 1 tablet by mouth once daily atorvastatin (Lipitor) 20 MG tablet Take 20 mg by mouth 1 (one) time each day at the same time. Active Comment on above: Take 20 mg by mouth once daily. CHEWABLE MULTI VITAMIN ORAL (19 sources) CHEWABLE MULTI VITAMIN ORAL Take by mouth. Active CHEWABLE MULTI V ITAMIN ORAL Take by mouth. 0 Active Comment on above: Take by mouth. cholecalciferol 0.125 mg oral capsule (20 sources) Vitamin D take 1 capsule by mouth in the morning cholecalciferol (Vitamin D-3) 125 MCG (5000 UT) capsule Take 5,000 Units by mouth in the morning. Active Cholecalciferol, Vitamin D3, 5,000 unit cap Take 5,000 Units by mouth once daily. patient taking once daily with food Active Comment on above: Take 5,000 Units by mouth once daily. patient taking once daily with food dicyclomine hydrochloride 10 mg oral capsule (5 sources) Anticholinergic Start: End: 024 take 1 capsule by mouth four times daily dicyclomine (Bentyl) 10 MG capsule TAKE 1 CAPSULE BY MOUTH 4 TIMES A DAY 12/17/2022 Active Comment on above: TAKE 1 CAPSULE BY MO UT 4 TIMES A DAY ezetimibe 10 mg oral tablet (20 sources) Dietary Cholesterol Absorption Inhibitor take 1 tablet by mouth in the morning ezetimibe (Zetia) 10 MG tablet Take 10 mg by mouth in the morning. Active Comment on above: Take 10 mg by mouth once daily. folic acid 1 mg oral tablet (20 sources) Start: 018 take 1 tablet by mouth once daily folic acid 1 mg tablet Take 1 mg by mouth once daily. 0 08/03/2018 Active Comment on above: Take 1 mg by mouth o nce daily. lisinopril 20 mg oral tablet (20 sources) Angiotensin Converting Enzyme Inhibitor lisinopril 20 MG tablet 1 (one) time each day at the same time. Active Comment on above: Take 20 mg by mouth once daily. meloxicam 15 mg oral tablet (1 source) Nonsteroidal Anti-inflammatory Drug take 1 tablet by mouth once daily meloxicam (MOBIC) 15 mg tablet Take 15 mg by mouth once daily. Active Multiple Vitamins-Minerals (CENTRUM ADULTS PO) (3 sources) Multiple Vitamins-Minerals (CENTRUM ADULTS PO) Orally Active omeprazole 40 mg delayed release oral capsule (20 sources) Proton Pump Inhibitor take 1 capsule by mouth in the morning omeprazole (PriLOSEC) [address] capsule Take 40 mg by mouth in the morning. Active Comment on above: Take 40 mg by mouth once daily. sulfaSALAzine 500 mg delayed release oral tablet (20 sources) Aminosalicylate Start: 023 take 2 tablets by mouth four times daily sulfaSALAzine (Azulfidine) 500 MG EC tablet TAKE 2 TABLETS BY MOUTH 4 TIMES A DAY 03/25/2023 Active SULFASALAZINE OR AL Take by mouth. takes 8 pills a days, divided three times daily (3 in am, 3 noon, 2 pm), per area cleaner 0 Active Comment on above: Take by mouth. takes 8 pills a days, divided three times daily (3 in am, 3 noon, 2 pm), per area cleaner TAKE 2 TABLETS BY MO UTH 4 TIMES A DAY tiZANidine 4 mg oral capsule (2 sources) Central alpha-2 Adrenergic Agonist take 1 capsule by mouth in the morning, then take 1 capsule by mouth in the evening, then take 1 capsule by mouth at bedtime tiZANidine (Zanaflex) 4 MG capsule Take 4 mg by mouth in the morning and 4 mg in the evening and 4 mg before bedtime. Active traMADol hydrochloride 50 mg oral tablet (1 source) Opioid Agonist take 1 tablet by mouth every six hours as needed traMADol (ULTRAM) 50 mg tablet Take 50 mg by mouth every 6 hours as needed for pain. Active Turmeric extract (2 sources) Turmeric 400 MG capsule Take by mouth Active turmeric root extract 500 mg cap (10 sources) take 1 tablet by mouth three [...] three times daily. vedolizumab 300 mg injection (12 sources) Integrin Receptor Antagonist Start: 11-11-2023 End: 05-09-2024 ENTYVIO 300 mg injection as directed every 8 wks 0 11/11/2023 05/09/2024 Discontinued (Discontinued by Patient) Start: 05-27-2023 Entyvio 300 MG injection 05/27/2023 Active Comment on above: as directed every 8 wks Completed/Discontinued Medications Medication Drug Class(es) Dates Sig (Normalized) Sig (Original) 0.4 ml adalimumab 100 mg/ml auto-injector (6 sources) Tumor Necrosis Factor Marita Start: 1 End: 3 HUMIRA,CF, PEN 40 mg/0.4 mL pen kit Inject 40 mg subcutaneously every 2 weeks. Prescribed by Electric [employer] Generator Assembler : Nel Lebron MD Previously prescr. by Ronald Brown MD 0 02/18/2021 05/04/2023 Discontinued Comment on above: Inject 40 mg subcuta neously every 2 weeks. Prescribed by [employer] Generator Assembler : Nel Lebron MD Previously prescr. by [...] Active Comment on above: Take by mouth. 0.5 ml etanercept 50 mg/ml prefilled syringe [...] week. ferrous sulfate 325 mg oral tablet (4 sources) Start: 4 End: 4 take 1 tablet by mouth every twelve hours ferrous sulfate 325 mg (65 mg iron) tablet Take 1 tablet by mouth every 12 hours. 0 01/06/2024 03/14/2024 Discontinued ferrous sulfate 325 (65 Fe) MG EC tablet Take 325 mg by mouth in the morning and 325 mg at noon and 325 mg in the evening. Take with meals. Do not crush, chew, or split. Active Comment on above: Take 1 tablet by yamileth every 12 hours. mesalamine 66.7 mg/ml enema (12 sources) Aminosalicylate Start: 01-17-2022 End: 03-14-2024 mesalamine (ROWASA) 4 gram/60 mL enema USE 1 ENEMA RECTALLY EVERY DAY AT BEDTIME 0 01/17/2022 03/14/2024 Discontinued mesalamine (Rowa sa) 4 g enema as directed Rectal Active Comment on above: USE 1 ENEMA RECTALLY EVERY DAY AT BEDTIME predniSONE 10 mg oral tablet (2 sources) Start: 12-02-2023 End: 03-14-2024 predniSONE (DELTASONE) 10 mg tablet PLEASE SEE ATTACHED FOR DETAILED DIRECTIONS 0 12/02/2023 03/14/2024 Discontinued Comment on above: PLEASE SEE ATTACHED FOR DETAILED DIRECTIONS 100 ml zoledronic acid 0.05 mg/ml injection (1 source) Bisphosphonate Start: 05-09-2024 End: 05-09-2024 zoledronic acid 5 mg PREMIX piggyback (RECLAST) Problems Active Problems Problem Classification Problem Date Documented Da te Episodic/Chronic Acquired foot deformities (1 source) Talipes planus; Translations: [Flat foot [pes planus] (acquired), unspecified foot] 02-20-2021 Episodic Administrative/social admission (7 sources) Follow-up status; Translations: [Person consulting for explanation of examination or test findings] Episodic Immunizations and screening for infectious disease (1 source) Other specified abnormal immunological findings in serum; Translations: [Other and unspecified nonspecific immunological findings] Episodic Nutritional deficiencies (20 sources) Vitamin D deficiency; Translations: [Vitamin D deficiency, unspecified] Onset: 10-05-2015 10-05-2015 Chronic Osteoarthritis (14 sources) Degenerative joint disease involving multiple joints; 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] Onset: 03-19-2023 02-20-2021 Chronic Osteoporosis (20 sources) Osteoporosis; Translations: [Age-related osteoporosis without current pathological fracture] Onset: 10-19-2018 10-19-2018 Chronic Other acquired deformities (1 source) Ankle joint deformity; Translations: [Unspecified acquired deformity of left lower leg] 02-20-2021 Episodic Other aftercare (20 sources) Patient encounter status; Translations: [Encounter for therapeutic drug level monitoring] Onset: 02-07-2016 02-07-2016 Episodic Other aftercare (3 sources) Drug therapy finding; Translations: [Other jail (current) drug therapy] Episodic Other bone disease and musculoskeletal deformities (1 source) Disorder of bone; Translations: [Other specified disorders of bone density and structure, unspecified site] 09-23-2022 Episodic Other connective tissue disease (3 sources) History of total knee arthroplasty; Translations: [Presence of unspecified artificial knee joint] Onset: 03-19-2023 03-19-2023 Chronic Other connective tissue disease (5 sources) History of total replacement of right hip joint; Translations: [Presence of right artificial hip joint] Onset: 03-19-2023 03-19-2023 Chronic Other ear and sense organ disorders (3 sources) Chronic otitis externa; Translations: [Other otitis externa, right ear] Onset: 03-19-2023 03-19-2023 Chronic Other ear and sense organ disorders (3 sources) Sensorineural hearing loss, bilateral; Translations: [Sensorineural hearing loss, bilateral] Onset: 03-19-2023 03-19-2023 Chronic Other liver diseases (1 source) Alkaline phosphatase raised; Translations: [Abnormal levels of other serum enzymes] 02-11-2024 Episodic Other non-traumatic joint disorders (1 source) Chronic ankle pain; Translations: [Pain in left ankle and joints of left foot] 02-20-2021 Episodic Other non-traumatic joint disorders (2 sources) Hip pain; Translations: [Pain in right hip] 03-31-2025 Episodic Regional enteritis and ulcerative colitis (20 sources) Ulcerative pancolitis; Translations: [Ulcerative (chronic) pancolitis without complications] Onset: 02-05-2017 02-05-2017 Chronic Residual codes; unclassified (2 sources) At risk for injury; Translations: [Other specified personal risk factors, not elsewhere classified] 08-22-2020 Episodic Residual codes; unclassified (2 sources) History of drug therapy; Translations: [Personal history [...] te Episodic/Chronic Other aftercare (1 source) Other jail (current) drug therapy; Translations: [OTH [facility] CURRENT DRUG THERAPY] Onset: 09-26-2022 Episodic Other aftercare (6 sources) Long-term current use of drug therapy; [...] Test Name Value Interpretation Reference Range Facility XR Hip - right 3 [facility] Result: AP and lateral of right hip showed acceptable position and alignment of right total hip arthroplasty. There was no evidence of loosening of the acetabular cup or femoral stem. Femoral head was well centered in the acetabular liner without evidence of asymmetric or accelerated wear. There was no gross evidence of fracture and/or dislocation. Impression: Unremarkable right total hip arthroplasty. [facility] Study observation (narrative) [facility] CNOVon 02-14-2025 CNOV Office Visit (AGNEL ) ----- JAM TOSCANO ([id number]) 1965 M Date Time Provider Department 02/14/25 7:20 AM DARRIAN DUBON During your visit today, we recorded the following information about you: Pulse Blood pressure Weight 66/minute 134/74 79 kg Darrian Dubon MD 02/20/2025 5:28 PM Signed FOLLOW UP VISIT Patient's Name: [place] [id number] PCP: Jose L Lackey MD [address] [facility] [place] [address] Consult Requested by: Jose L Lackey MD [address] [facility] [address] Other physicians: Electric Motor And Generator Assembler prev. eNl Lebron MD (his prev. area cleaner left- Ronald Brown MD) ; Now following with Dr. Luis Antonio García Accompanied by: self Interim history: Mr. Toscano is a very nice 59 y.o. gentleman here for f/u visit for Rheumatoid Arthritis and Osteoporosis He follows with IBD, UC, on Entyvio and sulfasalazine; States had liver US and fibroscan, told no fatty liver He is no longer on anti-TNF therapy. States his PCP is treating his anemia with iron, was on supplement and switched to IV. He is not aware of bleeding, denies BRBPR and denies melena. He follows with [employer] Generator Assembler for his UC. States has scopes this summer by his area cleaner. He is following with Orthopedics for his osteoarthroses and non-inflammatory joint pains. He has a chronic rotator cuff tear and extensive bilateral glenohumeral degenerative disease. His s/p b/l TKR and rt THR. Hissed rate was elevated at 79 04/2024 at time of his pneumonia. He continues on sulfasalazine and Entyvio by his area cleaner. He does not describe RA related symptoms No jt pains or swelling outside of the LLE from TKR Denies rheum nodules No stiffness He is on sulfasalazine per area cleaner for his UC and this has been controlling his RA He is pleased with his treatment regimen He also states that his IBD is well controlled, states told is in remission, on Entyvio Doing exercise and working with personal computer network analyst at the gym and will be going to the gym exercises. Denies serious infections in 2024. Denies interim infections or fevers, last pneumonia 04/2024. Had covid-19, 10/2024, no complications, flu like sympt, did not require hosp, resolved. States it was only couple days. Denies interim fractures He received Reclast infusion 05/09/2024, well tolerated Follows with dentist every 6 months, denies jaw pain or dental problems. He has lower partial; States chipped one of his teeth and will be following with his dentist for that shortly. Denies upcoming dental work Continues on vitamin D: 5000 international units once daily with meals Taking multivitamin Calcium is in diet and multivitamin 09/23/2022 His main problem has been in IBD and is following with local area cleaner for that. Has been on Humira since Sep 2020 (started with 80 mg loading dose and since has been on 40 mg every 2 wks) He was pleased with Enbrel response to his RA and later was switched to Humira, reports has similar benefit and is pleased with response. His area cleaner switched him to Humira for optimal mgt of IBD and he feels this has helped his IBD better. Reports still gets 8 BM's a day, does not have BM at night, does not have to wake up from sleep. Has been following with his area cleaner for his UC Had colonoscopy 11/22/2021 with reported marked improvement in asc/transv/desc colon and severe active in rectum, histopath with active colitis with erosions. States Dr. Lebron has started him on rectal enemas. Recent colonoscopy with reported active colitis. He tells me that he continues to have multiple BM's; His area cleaner prescribed pred. course, completed recently. 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 (previously was on Enbrel 25 mg twice a wk and has been in remission since on Enbrel and very pleased with his treatment regimen) He is on Humira 40 mg every 2 wks by his Electric Motor And Generator Assembler He is on sulfasalazine, Humira and mesalamine enemas per his area cleaner I have reviewed benefits of a whole food plant based diet He consumes dairy, cheese, sausage, hamburger. I have advised him on avoiding meats and dairy and reviewed reports and patient experience with flare of IBD and RA, as well as gastrointestinal dysbiosis. (more content not included)... Normal [facility] Quantiferon-TB Plus (Client Incubated)on 12-16-2024 Gamma interferon background IA Qn (Bld) 0.09 International_Unit/mL Invalid Interpretation Code [facility] Comment on above: Performed By: #### 1 [id number] #### [facility] [address] [place] [address] M. tuberculosis stim IFN-g by CD4+ CD8+ T-cells corrected for background Qn (Bld) 0.07 International_Unit/mL Invalid Interpretation Code [facility] Comment on above: Performed By: #### 1 [id number] #### [facility] [address] [place] [address] M. tuberculosis stim IFN-g by CD4+ T-cells corrected for background Qn (Bld) 0.07 International_Unit/mL Invalid Interpretation Code [facility] Comment on above: Performed By: #### 1 [id number] #### [facility] [address] [place] [address] M. tuberculosis stim IFN-g Ql (Bld) [Interp] Negative Invalid Interpretation Code Negative [facility] Comment on above: Result Comment: [...] interferon gamma. Chemiluminescence immunoassay methodology Performed at: [facility] [id number] PhD Tarun Olivas Performed By: #### 1 [id number] #### [facility] [address] [place] [address] Mitogen stimulated gamma interferon corrected for background Qn (Bld) >10.[address] [facility] Comment on above: Performed By: #### 1 [id number] #### [facility] [address] [place] [address] Service comment (Unsp spec) [Interp] Comment Invalid Interpretation Code [facility] Comment on above: Result Comment: [...] for the test. Performed By: #### 1 [id number] #### [facility] [address] [place] [id number] AMA Ab Scron 12-15-2024 Mitochondria M2 IgG Qn (S) <20.0 Invalid Interpretation Code 0.0-20.0 [facility] Comment on above: Result Comment: Nega tive 0.0 - 20.0 Equivocal 20.1 - 24.9 Positive >24.9 Mitochondrial (M2) Antibodies are found in 90-96% of patients with primary biliary cirrhosis. Performed at: [facility] [id number] PhD Tarun Olivas Performed By: #### 1 [id number] #### [facility] [address] [place] [address] Celiac Disease Comprehensive on 12-15-2024 Endomysium IgA Ql (S) Negative Invalid Interpretation Code Negative [facility] Comment on above: Performed By: #### 1 [id number] #### [facility] [address] [place] [address] Gliadin peptide IgA Qn (S) 5 unit(s) Invalid Interpretation Code 0- [facility] Comment on above: Result Comment: Nega tive 0 - 19 Weak Positive 20 - 30 Moderate to Strong Positive >30 Performed By: #### 1 [id number] #### [facility] [address] [place] [address] Gliadin peptide IgG Qn (S) 2 unit(s) Invalid Interpretation Code 0-19 [facility] Comment on above: Result Comment: Nega tive 0 - 19 Weak Positive 20 - 30 Moderate to Strong Positive >30 Performed By: #### 1 [id number] #### [facility] [address] [place] [address] IgA [Mass/Vol] 199 mg/dL Invalid Interpretation Code 90-386 [facility] Comment on above: Result Comment: Perf ormed at: [facility] [address] [place], [place] [id number] PhD Tarun Olivas Performed By: #### 1 [id number] #### [facility] [address] [place] [address] tTG IgA Qn (S) <2 Invalid Interpretation Code 0-3 [facility] Comment on above: Result Comment: Nega tive 0 - 3 Weak Positive 4 - 10 Positive >10 Tissue Transglutaminase (tTG) has been identified as the endomysial antigen. Studies have demonstr- ated that endomysial IgA antibodies have over 99% specificity for gluten sensitive enteropathy. Performed By: #### 1 [id number] #### [facility] [address] [place] [address] tTG IgG Qn (S) 6 unit/mL High 0-5 [facility] Comment on above: Result Comment: Nega tive 0 - 5 Weak Positive 6 - 9 Positive >9 Performed By: #### 1 [id number] #### [facility] [address] [place] [address] Hep Bs Abon 12-15-2024 HBV surface Ab Ql (S) Non-Reactive Invalid Interpretation Code [facility] Comment on above: Result Comment: Non Reactive: Not immune to HBV infection. Equivocal: Unable to determine if anti-HBs is present at levels consistent with immunity. Reactive: Anti-HBs concentration detected at greater than 10 mIU/mL. Individual is considered to be immune to infection with HBV. Performed at: [facility] [address] [place], [place] [id number] PhD Tarun Olivas Performed By: #### 2 [id number] #### [facility] [address] [place] [address] Hep Bs Agon 12-15-2024 HBV surface Ag IA Ql Negative Invalid Interpretation Code Negative [facility] Comment on above: Result Comment: Perf ormed at: [facility] [address] [id number] PhD Tarun Olivas Performed By: #### 2 [id number] #### [facility] [address] [place] [address] Ambulatory Visit Summaryon 0 12-14-2024 Ambulatory Visit [...] With: Ricky ROBLERO, Luis Antonio Tiwari Where: [facility] [address] [address]- You Need to Complete the Following C-Reactive [...] PSA (prostate specific antigen) Ulcerative colitis, universal [place] ulcerative colitis Ureteral stone with hydronephrosis Urethral [...] for choosing us for your care. Normal [facility] CBC w/ Auto Diffon 5 Basophils/100 WBC (Bld) 0.5 % Normal 0.0-2.0 [facility] Comment on above: Performed By: #### 2 [id number] #### [facility] [address] [place] [address] Basophils/Leukocytes Auto (Bld) [Pure # fraction] 0.0 E9/L Normal 0.0-0.2 [facility] Comment on above: Performed By: #### 2 [id number] #### [facility] [address] [place] [address] Eosinophils (Bld) [#/Vol] 0.0 E9/L Normal 0.0-0.5 [facility] Comment on above: Performed By: #### 2 [id number] #### [facility] [address] [place] [address] Eosinophils/100 WBC (Bld) 0.0 % Normal 0.0-8.0 [facility] Comment on above: Performed By: #### 2 [id number] #### [facility] [address] [place] [address] Erythrocyte distribution width (RBC) [Ratio] 15.6 % High 10.9-14.2 [facility] Comment on above: Performed By: #### 2 [id number] #### [facility] [address] [place] [address] Hematocrit (Bld) [Volume fraction] 36.2 % Low 37.7-49.0 [facility] Comment on above: Performed By: #### 2 [id number] #### [facility] [facility] [address] [place] [address] Hemoglobin (Bld) [Mass/Vol] 12.6 g/dL Low 13.5-17.5 [facility] Comment on above: Performed By: #### 2 [id number] #### [facility] [address] [place] [address] Lymphocytes (Bld) [#/Vol] 1.6 E9/L Normal 1.0-4.0 [facility] Comment on above: Performed By: #### 2 [id number] #### [facility] [address] [place] [address] Lymphocytes/100 WBC (Bld) 24.8 % Normal 14.0-50.0 [facility] Comment on above: Performed By: #### 2 [id number] #### [facility] [address] [place] [address] MCH (RBC) [Entitic mass] 31.7 pg Normal 27.0-34.0 [facility] Comment on above: Performed By: #### 2 306395 #### [facility] [address] [place] [address] MCHC (RBC) [Mass/Vol] 34.9 g/dL Normal 31.4-36.0 [facility] Comment on above: Performed By: #### 2 [id number] #### [facility] [address] [place] [address] MCV (RBC) [Entitic vol] 90.8 fL Normal 80.0-100.0 F [facility] Comment on above: Performed By: #### 2 [id number] #### [facility] [address] [place] [address] Monocytes (Bld) [#/Vol] 0.5 E9/L Normal 0.2-1.0 F [facility] Comment on above: Performed By: #### 2 [id number] #### [facility] [address] [place] [address] Neutrophils (Bld) [#/Vol]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 #### [facility] [address] [place] [address] Basophils/Leukocytes Auto (Bld) [Pure # fraction] 0.0 E9/L Normal 0.0-0.2 [facility] Comment on above: Performed By: #### 2 304382, 4167272, 12009259 #### [facility] [address] [place] [address] Eosinophils (Bld) [#/Vol] 0.0 E9/L Normal 0.0-0.5 [facility] Comment on above: Performed By: #### 2 745433, 5396117, 34393484 #### [facility] [address] [place] [address] Eosinophils/100 WBC (Bld) 0.0 % Normal 0.0-8.0 [facility] Comment on above: Performed By: #### 2 183203, 9438378, 98946924 #### [facility] [address] [place] [address] Erythrocyte distribution width (RBC) [Ratio] 15.1 % High 10.9-14.2 [facility] Comment on above: Performed By: #### 2 430146, 6520781, 51780116 #### [facility] [address] [place] [address] 10987 Hematocrit (Bld) [Volume fraction] 34.5 % Low 37.7-49.0 [facility] Comment on above: Performed By: #### 2 504850, 3469277, 45907069 #### [facility] [address] [place] [address] Hemoglobin (Bld) [Mass/Vol] 11.3 g/dL Low 13.5-17.5 [facility] Comment on above: Performed By: #### 2 548500, 8008771, 89762183 #### [facility] [address] [place] [address] Lymphocytes (Bld) [#/Vol] 1.8 E9/L Normal 1.0-4.0 [facility] Comment on above: Performed By: #### 2 428962, 6269831, 30896211 #### [facility] [address] [place] [address] Lymphocytes/100 WBC (Bld) 27.6 % Normal 14.0-50.0 [facility] Comment on above: Performed By: #### 2 263015, 9111625, 07167391 #### [facility] [address] [place] [address] 95225 MCH (RBC) [Entitic mass] 29.4 pg Normal 27.0-34.0 [facility] Comment on above: Performed By: #### 2 665596, 8357567, 21060442 #### [facility] [address] [place] [address] MCHC (RBC) [Mass/Vol] 32.9 g/dL Normal 31.4-36.0 [facility] Comment on above: Performed By: #### 2 140103, 1896450, 88464804 #### [facility] [address] [place] [address] MCV (RBC) [Entitic vol] 89.5 fL Normal 80.0-100.0 F [facility] Comment on above: Performed By: #### 2 160416, 4626562, 54115942 #### [facility] [address] [place] [address] Monocytes (Bld) [#/Vol] 0.5 E9/L Normal 0.2-1.0 F [facility] Comment on above: Performed By: #### 2 923263, 7933973, 47364433 #### [facility] [address] [place] [address] Neutrophils (Bld) [#/Vol] 4.2 E9/L Normal 2.0-7.5 [facility] Comment on above: Performed By: #### 2 662356, 8858776, 85516603 #### [facility] [address] [place] [address]294 Neutrophils/100 WBC (Bld) 63.6 % Normal 36.0-75.0 [facility] Comment on above: Performed By: #### 2 444370, 6473571, 58668662 #### [facility] [address] [place] [address] Platelet 344.0 E9/L Normal 150.0-500. 0 [facility] Comment on above: Performed By: #### 2 346852, 0971024, 02980053 #### [facility] [address] [place] [address] Platelet mean volume (Bld) [Entitic vol] 6.9 fL Normal 6.4-10.8 [facility] Comment on above: Performed By: #### 2 298606, 4139790, 87965955 #### [facility] [address] [place] [address] RBC (Bld) [#/Vol] 3.9 E12/L Low 4.3-5.9 [facility] Comment on above: Performed By: #### 2 453445, 8172078, 72003133 #### [facility] [address] [place] [address] WBC corrected for nucl RBC Auto (Bld) [#/Vol] 6.6 E9/L Normal 4.0-11.0 [facility] Comment on above: Performed By: #### 2 656695, 0638338, 53041425 #### [facility] [address] [place], [place] [address] CMPon 03-02-2024 Albumin [Mass/Vol] 4.0 g/dL Normal 3.3-5.0 [facility] Comment on above: Performed By: #### 2 215202, 9215750, 53286079 #### [facility] [address] [place], [place] [address] Albumin/Globulin (S) [Mass conc ratio] 1.3 Normal 1.1-2.2 [facility] Comment on above: Performed By: #### 2 555932, 2690318, 72153827 #### [facility] [address] [place] [address]3052 ALP [Catalytic activity/Vol] 139 Int._Unit/L High 21-98 [facility] Comment on above: Performed By: #### 2 721188, 6923202, 97841765 #### [facility] [address] [place] [address] 74574 ALT No additional P-5'-P [Catalytic activity/Vol] 20 Int._Unit/L Normal 6-46 [facility] Comment on above: Performed By: #### 2 366392, 1870400, 72535620 #### [facility] [address] [place] [address] Anion gap [Moles/Vol] 11 mmol/L Normal 6-16 [facility] Comment on above: Performed By: #### 2 324554, 1980825, 94513511 #### [facility] [address] [place] [address] AST [Catalytic activity/Vol] 25 Int._Unit/L Normal 5-43 [facility] Comment on above: Performed By: #### 2 332892, 4868721, 82644637 #### [facility] [address] [place] [address] Bilirubin [Mass/Vol] 0.3 mg/dL Normal 0.0-1.1 [facility] Comment on above: Performed By: #### 2 000113, 7143065, 43212933 #### [facility] [address] [place] [address] Calcium [Mass/Vol] 9.4 mg/dL Normal 8.9-11.1 [facility] Comment on above: Performed By: #### 2 639685, 3928180, 84903406 #### [facility] [address] [place] [address] Chloride [Moles/Vol] 107 mmol/L Normal 101-111 [facility] Comment on above: Performed By: #### 2 164052, 7444442, 45134072 #### [facility] [address] [place] [address] CO2 [Moles/Vol] 27 mmol/L Normal 21-31 [facility] Comment on above: Performed By: #### 2 507927, 3539513, 42569330 #### [facility] [address] [place] [address] Creatinine [Mass/Vol] 0.8 mg/dL Normal 0.5-1.3 [facility] Comment on above: Performed By: #### 2 331736, 4061035, 40299516 #### [facility] [address] [place] [address] Globulin (S) [Mass/Vol] 3.0 g/dL Normal 1.4-4.0 [facility] Comment on above: Performed By: #### 2 204300, 6116543, 26979497 #### [facility] [address] [place] [address] Glucose [Mass/Vol] 97 mg/dL Normal 55-199 [facility] Comment on above: Performed By: #### 2 998117, 8190174, 91691977 #### [facility] [address] [place] [address] Potassium [Moles/Vol] 3.6 mmol/L Normal 3.5-5.3 [facility] Comment on above: Performed By: #### 2 921233, 7791964, 72717992 #### [facility] [address] [place] [address] Protein [Mass/Vol] 7.0 g/dL Normal 6.0-7.8 [facility] Comment on above: Performed By: #### 2 681180, 9901498, 81759550 #### [facility] [address] [place] [address] Sodium [Moles/Vol] 141 mmol/L Normal 135-145 [facility] Comment on above: Performed By: #### 2 336971, 7203765, 10014083 #### [facility] [address] [place] [address] Urea nitrogen [Mass/Vol] 12 mg/dL Normal 5-21 [facility] Comment on above: Performed By: #### 2 793168, 6675180, 78949445 #### [facility] [address] [place] [address] Urea nitrogen/Creatinine [Mass ratio] 15 No Units Normal 10-20 [facility] Comment on above: Performed By: #### 2 396372, 1984504, 05299555 #### [facility] [address] [place] [address] Consent for Treatmenton 02-14 Consent for Treatment [id number]#1.00TIFF [facility] Progress Note-Physicianon Progress Note-Physician Patient: JAM QUINTANA Age: 58 years Sex: Male : 1965 Associated Diagnoses: None Author: MD Zabala Ahmad F Postoperative Information Postoperative disposition: Postoperative disposition: To PACU. Optimetrix number: Optimetrix number [id number]. Anesthetic utilized: General. Health Status Allergies: Allergic [...] when meets criteria ( To home ). [facility] Comment on above: Result Comment: Elec tronically Signed By: MD Zabala Ahmad F\.br\Date and Time Signed: 03/02/24 14:23 EDT Progress Note-Physician Patient: JAM QUINTANA Age: 58 years Sex: Male : 1965 [...] Daily, # 10 cap(s), Refills(s) 0, [id number], cm, 10/23/23 13:41:00 EST, Height/Length Dosing, 75.1, kg, 10/23/23 13:41:00 EST, Weight Dosing Humira Pen Crohns/Ulcer Colitis/Hidradenitis Suppurativa Starterr Pack 80 mg/0.8 mL subcutaneous ki...: See Instructions, Inject 160 mg on day one, Inject 80 mg on day 15, # 1 kit(s), Refills(s) 0, [id number], 167, cm, 09/04/20 8:15:00 EDT, Height/Length Dosing, 75.8, kg, 09/04/20 8:15:00 EDT, Weight Dosing Zofran ODT 4 mg Tab-Dis: 4 mg = 1 tab(s), Oral, q8hr, PRN Nausea/Vomiting, # 30 tab(s), Refills(s) 0, [id number], 168, cm, 10/23/23 13:41:00 EST, Height/Length Dosing, 75.1, kg, 10/23/23 13:41:00 EST, Weight Dosing mesalamine 4 g/60 mL rectal enema: = 1 EA, Rectal, Once a day (at bedtime), # 30 EA, Refills(s) 3, [id number], 168, cm, 03/23/23 8:23:00 EDT, Height/Length Dosing, 81.1, kg, 03/23/23 8:23:00 EDT, Weight Dosing mesalamine 4 g/60 mL rectal enema: = 1 EA, Rectal, Once a day (at bedtime), # 30 EA, Refills(s) 6, [id number], 168, cm, 10/16/22 13:49:00 EST, Height/Length Dosing, 80.6, kg, 10/16/22 13:49:00 EST, Weight Dosing omeprazole 40 mg Cap-DR: 40 mg = 1 cap(s), Oral, Daily, # 30 cap(s), Refills(s) 11, [id number], 167, cm, 09/04/20 8:15:00 EDT, Height/Length Dosing, 75.8, kg, 09/04/20 8:15:00 EDT, Weight Dosing sulfasalazine 500 mg oral enteric coated tablet: 1,000 mg = 2 tab(s), Oral, QID, X 30 day(s), # 240 tab(s), Refills(s) 11, [id number], 168, cm, 04/01/23 8:58:00 EDT, [...] list: All Problems Hyperlipemia / SNOMED CT 13474585 / Confirmed Rectal bleed / SNOMED CT 019729326 / Confirmed Heartburn / SNOMED CT 97595579 / Confirmed Ulcerative colitis, universal / SNOMED CT 4597439033 / Confirmed Bladder stone / SNOMED CT 109632865 / Confirmed BPH with urinary obstruction / SNOMED CT 7701893860 / Confirmed Incomplete bladder emptying / SNOMED CT 660211244 / Confirmed Gross hematuria / SNOMED CT 450781246 / Confirmed Kidney stones / SNOMED CT 321705681 / Confirmed Bladder mass / SNOMED CT 1161787220 / Confirmed Urethral stone / SNOMED CT 65212754 / Confirmed Prostate calculus / SNOMED CT 422965344 / Confirmed Continuous severe abdominal pain / SNOMED CT 48251895 / Confirmed Hematochezia / SNOMED CT 0657365700 / Confirmed Acute diarrhea / SNOMED CT 2052931379 / Confirmed [place] ulcerative colitis / SNOMED CT 5921363954 / Confirmed Adenomatous colon polyp / SNOMED CT 6571541987 / Confirmed Resolved: Extreme obesity / SNOMED CT 36T43198-0HK9-07W1-I612-5 [id number] Resolved: Ulcerative colitis / SNOMED CT 765731368 Canceled: Ulcerative colitis / SNOMED CT 609068689 Histories Past Medical History: Resolved Extreme obesity ([id number]- [id number]): Resolved. Ulcerative colitis (218131750): Resolved. Family History: Procedure history: Colonoscopy (913662176) on 02/26/2024 at 58 Years. Colonoscopy (449290970) on 03/23/2023 at 57 Years. Cystoscopy (94445828) on 02/04/2021 at 55 Years. Colonoscopy (256439042). right hip replacement (311188835). replacement on both knees (776004875). Hernia repair (56509519). Social History Soc (more content not included)... Normal [facility] Comment on above: Result Comment: Elec tronically Signed By: MD Vj, Rigoberto Espinosa\.br\Date and Time Signed: 03/02/24 14:21 EDT eGFRon 03-02-2024 eGFR 101 mL/min/1.73 m2 Normal >=59 [facility] Comment on above: Order Comment: Order added by Discern Expert. Performed By: #### 2 004029, 5307795, 87728929 #### [facility] [address] [place] [address] Consenton 02-29-2024 Consent [id number]#1.00TIFF Normal [facility] Discharge Instructionson Discharge Instructions [id number]#1.00TIFF Normal [facility] Main OR Intraoperative Recor don 02-29-2024 Main OR Intraoperative Record IntraOp Document Type FT Summary Primary Physician: Luis Antonio García MD Finalized Date/Time: 02/29/24 10:32:28 Pt. Name: ARNULFOJAREDJAM DONALD/Sex: 1965 Male Med Rec #: [id number] Physician: Luis Antonio García MD Financial #: [id number] Pt. Type: O Room/Bed: / Admit/Disch: 02/26/24 07:58:32 - 02/26/24 23:59:59 Institution: Case Times FT Entry 1 Patient Times In Room 02/26/24 10:07:00 Out Room 02/26/24 10:32:00 Procedure Times Start 02/26/24 10:11:00 Stop 02/26/24 10:30:00 Anesthesia Times Start 02/26/24 10:07:00 Stop 02/26/24 10:32:00 Time at [place] 02/26/24 10:13:00 Last Modified By: Stacy RAMESH, Donna 02/26/24 10:33:38 General Comments: 02/29/24 Chart opened to review and send charges LRoth CSFA Case Attendance FT Entry 1 Entry 2 Entry 3 Case Attendee Jordy HERNÁNDEZ, Corey García MD, Luis Antonio Kumar RN, Donna Tiwari Role Performed [employer] Surgeon - Primary Mailroom Coordinator - Primary Time In 02/26/24 10:07:00 02/26/24 [...] Comments help in room Last Modified By: Donna Kumar RN, RN, Angela 02/26/24 10:33:39 02/26/24 10:33:39 Perioperative Protocols FT [...] Corey Spence CRNA, Given Participants Ricky ROBLERO, Luis Antonio Tiwari, Stacy RAMESH, Horace Thompson Kirstyn K, Sparks, Micala E [...] at 20cm. Primary Procedure Yes Primary Surgeon Luis Antonio García MD Start 02/26/24 10:11:00 Stop 02/26/24 10:30:00 Anesthesia Type General Surgical Service Gastroenterology Wound Class 2 - Clean-Contaminated Last Modified By: Donna Kmuar RN 02/26/24 10:32:24 General Case Data FT [...] and tissue Entry 1 Skin Integrity Intact, [place], Warm, and Skin Abnormality No Dry Outcomes Met? Yes Last Modified By: Donna Kumar RN 02/26/24 10:16:00 Post-Care Text: The patient is free from signs and symptoms of injury caused by extraneous objects Patient Positioning FT Pre-Care Text: Identifies physical alterations that require additional precautions for proce (more content not included)... Normal [facility] Postoperative Documentson Postoperative Documents [id number]#1.00TIFF [facility] Consent for Treatmenton 02-14 Consent for Treatment [id number]#1.00TIFF [facility] Discharge Instructionson Discharge Instructions JAM TOSCANO [...] For Persistent or heavy bleeding Pharmacy Information [facility] [place] Discharge Instructions Discharge Instructions New Follow Up Appointments after Discharge Follow Up with Luis Antonio García When: Within 1 to 2 weeks Comments: Call for any problems. Where: [facility], [address] [address] [phone] Business (1) Medications What How Much When [...] (Entyvio 300 mg intravenous injection) See instructions [place] ulcerative colitis 300 mg/ kg at week [...] Prostate calculus Rectal bleed Ulcerative colitis, universal [place] ulcerative colitis Urethral stone Historical - Any [...] referred to (more content not included)... Normal [facility] Comment on above: Result Comment: Elec tronically Signed By: Lalo RAMESH, Makayla.sania\Date and Time Signed: 02/26/24 10:43 EDT Endoscopic [...] history and physical Documented on chart. Colonoscopy (448342912) on 03/23/2023 at 57 Years. Cystoscopy (92735131) on 02/04/2021 at 55 Years. Colonoscopy (643640295). right hip replacement (141242827). replacement on both knees (028653447). Hernia repair (16123245).. Past Medical History Resolved Extreme obesity ([id number]- [id number]): Resolved. Ulcerative colitis (310264456): Resolved.. Family History . Procedure History Colonoscopy (951306752) on 03/23/2023 at 57 Years. Cystoscopy (15231448) on 02/04/2021 at 55 Years. Colonoscopy (426914448). right hip replacement (728170430). replacement on both knees (354116877). Hernia repair (79781092).. Colorectal neoplasm risk assessment High risk UC. [...] Daily, # 10 cap(s), Refills(s) 0, [id number] 168, cm, 10/23/23 13:41:00 EST, Height/Length Dosing, 75.1, kg, 10/23/23 13:41:00 EST, Weight Dosing Humira Pen Crohns/Ulcer Colitis/Hidradenitis Suppurativa Starterr Pack 80 mg/0.8 mL subcutaneous ki...: See Instructions, Inject 160 mg on day one, Inject 80 mg on day 15, # 1 kit(s), Refills(s) 0, [facility] 167, cm, 09/04/20 8:15:00 EDT, Height/Length Dosing, 75.8, kg, 09/04/20 8:15:00 EDT, Weight Dosing Zofran ODT 4 mg Tab-Dis: 4 mg = 1 tab(s), Oral, q8hr, PRN Nausea/Vomiting, # 30 tab(s), Refills(s) 0, Pharmacy: [facility]/pharmacy #6177, 168, cm, 10/23/23 13:41:00 EST, Height/Length Dosing, 75.1, kg, 10/23/23 13:41:00 EST, Weight Dosing mesalamine 4 g/60 mL rectal enema: = 1 EA, Rectal, Once a day (at bedtime), # 30 EA, Refills(s) 3, Pharmacy: [facility]/pharmacy #6177, 168, cm, 03/23/23 8:23:00 EDT, Height/Length Dosing, 81.1, kg, 03/23/23 8:23:00 EDT, Weight Dosing mesalamine 4 g/60 mL rectal enema: = 1 EA, Rectal, Once a day (at bedtime), # 30 EA, Refills(s) 6, [facility], 168, cm, 10/16/22 13:49:00 EST, Height/Length Dosing, 80.6, kg, 10/16/22 13:49:00 EST, Weight Dosing omeprazole 40 mg Cap-DR: 40 mg = 1 cap(s), Oral, Daily, # 30 cap(s), Refills(s) 11, [facility], 167, cm, 09/04/20 8:15:00 EDT, Height/Length Dosing, 75.8, kg, 09/04/20 8:15:00 EDT, Weight Dosing sulfasalazine 500 mg oral enteric coated tablet: 1,000 mg = 2 tab(s), Oral, QID, X 30 day(s), # 240 tab(s), Refills(s) 11, [id number] 168, cm, 04/01/23 8:58:00 EDT, [...] the col (more content not included)... Normal [facility] Comment on above: Result Comment: Elec tronically Signed By: Ricky ROBLERO, Luis Antonio Tiwari\.br\Date and Time Signed: 02/26/24 10:37 EDT Inpatient Patient Summaryon 02-26-2024 Inpatient Patient Summary [place] [id number] [facility] Clinical Discharge Instructions PERSON INFORMATION Name: [...] every 8 weeks. Refills: 6. Comment: Normal [facility] Main OR PACU I Recordon 02-14 Main OR PACU I Record PACU Phase I Docum ent Type FT Summary Primary Physician: Luis Antonio García MD Finalized Date/Time: 02/26/24 11:54:56 Pt. Name: JAM TOSCANO/Sex: 1965 Male Med Rec #: [id number] Physician: Luis Antonio García MD Financial #: [id number] Pt. Type: O Room/Bed: / Admit/Disch: 02/26/24 [...] By: Lesli May RN 02/26/24 11:[address] [facility] Main OR Preoperative Recordo n 02-26-2024 Main OR Preoperative Record Holding Area Document Type FT Summary Primary Physician: Luis Antonio García MD Finalized Date/Time: 02/26/24 08:41:02 Pt. Name: JAM TOSCANO /Sex: 1965 Male Med Rec #: [id number] Physician: Luis Antonio García MD Financial #: [id number] Pt. Type: O Room/Bed: / Admit/Disch: 02/26/24 [...] By: Lauren Rosado RN 02/26/24 08:[address] [facility] Monitor Recordon 02-26-2024 Monitor Record [id number]#1.00TIFF Normal [facility] Monitor Record [id number]#1.00TIFF Normal [facility] Outpatient Surgery Discharge Instructionon 02-26-2024 Outpatient Surgery Discharge Instruction [place] [id number] Patient Discharge Instructions PERSON INFORMATION Name: JAM [...] THE NEAREST EMERGENCY ROOM OR CALL 911 I, JMA TOSCANO, have received the attached patient education materials/instructions and have verbalized understanding: May we do a follow up call? Yes No I was present when discharge instructions were given Patient Signature ___ Date Clinican/Nurse Signature Date Follow up: Pharmacy Information: [facility] You may receive a survey from [employer] asking you to rate your care experience. Your feedback is important and will help us understand what we do well and how we can improve the quality of care we provide to you, your loved ones and our community. It?s an honor to serve you. Thank you for choosing [facility] HERE ARE THE MEDICATION CHANGES THAT OCCURRED [...] 6. PATIENT EDUCATION INFORMATION Instructions: Medication Leaflets: [facility] Patient Education - Texton 0 02-26-2024 Patient [...] unsweetened, w/added ascorbic acid 1 cup 0.5 Coffee 1 cup 0.7 Vegetables Cooked Green beans 1 cup 4.0 Carrots 1/2 cup sliced 2.3 Peas 1 cup 8.8 Potato (baked, with skin) 1 medium potato 3.8 Raw [place] (with peel) 1 cucumber 1.5 Lettuce 1 [...] 8.7 Peanuts 1/2 cup 7.9 Chart from [facility] 2013. SEEK IMMEDIATE MEDICAL CARE IF: [...] Information adapted from: ExitCare? Patient Information ?2009 [employer]. [employer] 2012 [email or web address] [email or web address]-[email or web address] Colonoscopy Care After Surgery Please read the [...] and progress (more content not included)... Normal [facility] Consent for Procedure/Surger yon 12-14-2023 Consent for Procedure/Surgery [id number] [facility] Ambulatory Visit Summaryon 0 12-11-2023 Ambulatory Visit Summary JAM TOSCANO :1965 Visit Date:12/11/2023 Ambulatory Visit Instructions Your Diagnosis [place] ulcerative colitis Adenomatous colon polyp Your Care Team Attending Physician - Ricky ROBLERO, Luis Antonio Tiwair Primary Care Physician - Jose L Lackey [...] (Entyvio 300 mg intravenous injection) See instructions [place] ulcerative colitis 300 mg/ kg at week [...] Prostate calculus Rectal bleed Ulcerative colitis, universal [place] ulcerative colitis Urethral stone Historical - Any problem that you are no longer receiving treatment for. E (more content not included)... Normal [facility] Gastroenterology Office/Clin ic Noteon 12-11-2023 [...] BIOPSY: ? COLONIC MUCOSA WITHIN NORMAL LIMITS. [facility] 10/23/23 for c/o abdominal pain d/c diagnosis of Kidney stones, CT and labs completed. [facility] 11/04/23 for c/o nausea and diarrah [...] 87.3 fL (11/27/23) Chloride: 105 mmol/L (11/27/23) [place] Absolute: 0.9 E9/L (11/27/23) CO2: 24 mmol/L (11/27/23) [place] Auto: 9.3 % (11/27/23) Creatinine: 0.7 mg/dL [...] WT: 165.88 lb BMI: 26.71 Assessment/Plan 1. [place] ulcerative colitis (K51.00: Ulcerative (chronic) pancolitis without [...] 2018. W (more content not included)... Normal [facility] Comment on above: Result Comment: Elec tronically Signed By: Ricky ROBLERO, Luis Antonio Tiwari\.br\Date and Time Signed: 12/11/23 10:32 EST ED Note-Physicianon 11-28-19 ED Note-Physician Basic Information [...] for 3 day(s), 15 tab(s), Refill(s) 0, [facility]/pharmacy #[id number], 168, cm, 11/27/23 10:26:00 EST, Height/Length Dosing, 73.8, kg, 11/27/23 10:26:00 EST, Weight Dosing Orders: methocarbamol, 1,500 mg = 2 tab(s), Oral, TID, X 3 day(s), # 18 tab(s), Refills(s) 0, Pharmacy: [facility]/pharmacy #[id number], 168, cm, 11/27/23 10:26:00 [...] Jose L Lackey In 3 days 11/30/[address] Business (1) Additional Instructions: Patient Education Rheumatoid Arthritis Attestation Patient seen and evaluated by the physician assistant curator. Attending physician was present in the emergency department and supervised care. This visit was performed by both the physician and an APC. I performed all aspects of the MDM as documented. This report was transcribed using voice recognition software. Every effort was made to ensure accuracy, however, inadvertently computerized patient intake representative mistakes may be present. Appropriate healthcare PPE [...] Prostate calculus Rectal bleed Ulcerative colitis, universal [place] ulcerative colitis Urethral stone Historical Extreme obesity Ulcerative colitis Procedure/Surgical History Colonoscopy (03/23/2023), Cystoscopy (02/04/2021), Colonoscopy, Hernia repair, Procedure on hip, Procedure on knee. Medicatio (more content not included)... Normal [facility] Comment on above: Result Comment: Elec tronically Signed By: Juancarlos Josue PA-C\.br\Date and Time Signed: 11/27/23 18:42 EST\.br\Electronically Co-Signed By: Kavon Johnson DO\.br\Date and Time Co-Signed: 11/28/23 17:15 EST Auto Diffon 11-27-2023 Basophils/100 WBC (Bld) 0.7 % Normal 0.0-2.0 F [facility] Comment on above: Order Comment: Order Added by Discern Expert. Performed By: #### 2 787273, 9491049, 55970290, 3680057 ####[place] [address] [place] [address] Basophils/Leukocytes Auto (Bld) [Pure # fraction] 0.1 E9/L Normal 0.0-0.2 [facility] Comment on above: Order Comment: Order Added by Discern Expert. Performed By: #### 2 572504, 0186434, 40812405, 6267696 ####[address] [address] Eosinophils/100 WBC (Bld) 0.0 % Normal 0.0-8.0 [facility] Comment on above: Order Comment: Order Added by Discern Expert. Performed By: #### 2 581534, 7663298, 00061290, 0179614 ####[address] [address] Eosinophils/Leukocytes Auto (Bld) [Pure # fraction] 0.0 E9/L Normal 0.0-0.5 [facility] Comment on above: Order Comment: Order Added by Discern Expert. Performed By: #### 2 370168, 4261558, 52540584, 2990713 ####[address] [place] [address] Lymphocytes/100 WBC (Bld) 18.8 % Normal 14.0-50.0 [facility] Comment on above: Order Comment: Order Added by Discern Expert. Performed By: #### 2 853656, 9497437, 86090810, 1651266 ####[address] [place] [address] Lymphocytes/Leukocytes Auto (Bld) [Pure # fraction] 1.8 E9/L Normal 1.0-4.0 [facility] Comment on above: Order Comment: Order Added by Discern Expert. Performed By: #### 2 556630, 6672287, 98504965, 1649590 ####[address] [address] Monocytes/100 WBC (Bld) 9.3 % Normal 4.0-14.0 [facility] Comment on above: Order Comment: Order Added by Discern Expert. Performed By: #### 2 407159, 1674623, 52646957, 4420551 ####[address] [address] Monocytes/Leukocytes Auto (Bld) [Pure # fraction] 0.9 E9/L Normal 0.2-1.0 [facility] Comment on above: Order Comment: Order Added by Discern Expert. Performed By: #### 2 949572, 2343699, 80763321, 9856989 ####[address] [address] Neutrophils/100 WBC (Bld) 71.2 % Normal 36.0-75.0 [facility] Comment on above: Order Comment: Order Added by Discern Expert. Performed By: #### 2 399719, 6310962, 32095294, 7378788 ####[address] [place] [address] Neutrophils/Leukocytes Auto (Bld) [Pure # fraction] 6.9 E9/L Normal 2.0-7.5 [facility] Comment on above: Order Comment: Order Added by Discern Expert. Performed By: #### 2 768356, 6201957, 89990366, 7702676 ####[address] [address] BMPon 11-27-2023 Anion gap [Moles/Vol] 13 mmol/L Normal 6-16 [facility] Comment on above: Performed By: #### 2 883577, 5319268, 81728660, 5715300 ####[facility] [address] [place] [address] BUN/Creat Ratio 21 No Units High 10-20 [facility] Comment on above: Performed By: #### 2 399933, 2293956, 27772254, 0155364 ####[facility] [address] [place] [address] Calcium [Mass/Vol] 9.2 mg/dL Normal 8.9-11.1 [facility] Comment on above: Performed By: #### 2 165186, 1153125, 59766972, 5388652 ####[facility] [address] [place] [address] Chloride [Moles/Vol] 105 mmol/L Normal 101-111 [facility] Comment on above: Performed By: #### 2 150547, 2420645, 77209638, 6217330 ####[facility] [address] [place] [address] CO2 [Moles/Vol] 24 mmol/L Normal 21-31 [facility] Comment on above: Performed By: #### 2 893218, 7626972, 08197586, 0466264 ####[facility] [address] [place] [address] Creatinine [Mass/Vol] 0.7 mg/dL Normal 0.5-1.3 [facility] Comment on above: Performed By: #### 2 959862, 5913941, 22331462, 3035619 ####[facility] [address] [place] [address] Glucose [Mass/Vol] 121 mg/dL Normal 55-199 [facility] Comment on above: Performed By: #### 2 089036, 9386634, 48699289, 6475275 ####[facility] [address] [place] [address] Potassium [Moles/Vol] 3.9 mmol/L Normal 3.5-5.3 [facility] Comment on above: Performed By: #### 2 986118, 9496221, 69901263, 2033655 ####[facility] [address] [place] [address] Sodium [Moles/Vol] 138 mmol/L Normal 135-145 [facility] Comment on above: Performed By: #### 2 687852, 8459002, 60396620, 6295123 ####[facility] [address] [place] [address] Urea nitrogen [Mass/Vol] 15 mg/dL Normal 5-21 [facility] Comment on above: Performed By: #### 2 278898, 0720261, 82452422, 1479217 ####[facility] [address] [place] [address] CBC w/ Auto Diffon 4 Erythrocyte distribution width (RBC) [Ratio] 14.0 % Normal 10.9-14.2 [facility] Comment on above: Performed By: #### 2 456084, 9131724, 55023522, 6178674 ####[facility] [address] [place] [address] Hematocrit (Bld) [Volume fraction] 35.0 % Low 37.7-49.0 [facility] Comment on above: Performed By: #### 2 737718, 9712660, 49197663, 0203720 ####[facility] [address] [place] [address] Hemoglobin (Bld) [Mass/Vol] 11.7 g/dL Low 13.5-17.5 [facility] Comment on above: Performed By: #### 2 385872, 3168133, 05733737, 8419574 ####[facility] [address] [place] [address] MCH (RBC) [Entitic mass] 29.1 pg Normal 27.0-34.0 [facility] Comment on above: Performed By: #### 2 101077, 4969898, 80809359, 9872973 ####[place] [address] [place] [address] MCHC (RBC) [Mass/Vol] 33.3 g/dL Normal 31.4-36.0 [facility] Comment on above: Performed By: #### 2 229415, 1747056, 96602167, 4813845 ####[place] [address] MCV (RBC) [Entitic vol] 87.3 fL Normal 80.0-100.0 F [facility] Comment on above: Performed By: #### 2 362936, 5718498, 30865435, 5234006 ####[place] [address] [address] Platelet mean volume (Bld) [Entitic vol] 6.3 fL Low 6.4-10.8 [facility] Comment on above: Performed By: #### 2 231633, 6005497, 97627321, 1573231 ####[place] [address] Platelets (Bld) [#/Vol] 462.0 E9/L Normal 150. 0-500. 0 [facility] Comment on above: Performed By: #### 2 747194, 5663382, 74453273, 8477110 ####[place] [address] RBC (Bld) [#/Vol] 4.0 E12/L Low 4.3-5.9 [facility] Comment on above: Performed By: #### 2 714188, 2078918, 72714861, 2879199 ####[address] [address] WBC corrected for nucl RBC Auto (Bld) [#/Vol] 9.7 E9/L Normal 4.0-11.0 [facility] Comment on above: Performed By: #### 2 771775, 7909013, 32485860, 9384109 ####[facility] [address] [place] [address] Consent for Treatmenton 11-16 Consent for Treatment [id number] Normal [facility] Discharge Instructionson Discharge Instructions [id number]#1.00TIFF Normal [facility] ED Clinical Summaryon 2023 ED Clinical Summary (Inserted Image. Perla ble to display) [address] [address] ED Clinical Summary Person Information Name: JAM TOSCANO Emilie/[facility] Age: 58 Years : 1965 Sex: Male Language: Monegasque PCP: Jose L Lackey MD Marital Status: [...] 11/27/2023 12:48:44 11/27/2023 12:48:44 11/27/2023 12:48:44 ADDRESS: [facility] [place] [id number] PHYS DOC NOTES: MEDICAL INFORMATION: Prescriptions Given: New Medications [id number], [address] [place] [id number], [phone] acetaminophen-oxycodone (Percocet 5 mg-325 mg oral tablet) [...] up: With: Address: When: Jose L Lackey [address] [place] [address], [place] [id number] Business (1) In 3 days 11/30/2023 DIAGNOSIS: Joint pain; Rheumatoid arthritis Normal [facility] ED Patient Education Noteon 11-27-2023 [...] in your joints. General instructions ? Take yosq-vng-txufpfi and prescription medicines only as told by your health care provider. ? Keep all follow-up visits. This is important. Where to find more information ? [employer]: [email or web address] ? Ar[employer]: [...] than y (more content not included)... Normal [facility] ED Patient Summaryon 024 ED Patient Summary (Inserted Image. Perla ble to display) [place] [id number] Patient Discharge Instructions Person Information Name: JAM TOSCANO Age: 58 Years Arrival Date: 11/27/2023 10:14:59 Discharge Diagnosis: Joint pain; Rheumatoid arthritis Primary Care Physician: Jose L Lackey MD Provider Information Primary Provider: Kavon Johnson DO Advanced Turnstile Collector:Juancarlos Josue PA-C The exam and treatment you received in the Emergency Department were for an urgent problem and are not intended as complete care. It is important that you follow up with a doctor, nurse practitioner, or physician?s assistant curator for ongoing care. If your symptoms become [...] Instructions: With: Address: When: Jose L Lackey [address] [facility], [address] [place] [id number] Business (1) In 3 days 11/30/2023 In the event that this physician does not participate in your insurance network, please consult with your insurance company to find a nearby participating provider. Patient Education Materials: Rheumatoid Arthritis A MESSAGE TO ALL PATIENTS REGARDING OPIOIDS PRESCRIPTION OPIOIDS: WHAT YOU NEED TO KNOW Prescription opioids can be used to help relieve jzimzyln-pk-fpsobf pain and are often prescribed following a [...] be struggling with addiction, tell your health child day care teacher and ask for guidance or call [employer] National Helpline at 0-225-590-WLR (more content not included)... Normal [facility] eGFRon 11-27-2023 GFR/1.73 sq M.predicted among non-blacks MDRD (S/P/Bld) [Vol rate/Area] mL/min/{1.73_m2} Normal >=59 [facility] Comment on above: Order Comment: Order added by Discern Expert. Performed By: #### 2 459174, 7949938, 06702411, 3182274 ####[facility] [address] [place] [address] ED Note-Physicianon 11-08-20 ED Note-Physician Basic Information [...] day(s), # 20 tab(s), Refills(s) 0, Pharmacy: [facility]/pharmacy #[id number], 167, cm, 11/04/23 17:47:00 EST, Height/Length Dosing, 73.5, kg, 11/04/23 17:47:00 EST, Weight Dosing 2. Hypokalemia (E87.6: Hypokalemia) Ordered: amoxicillin-clavulanate, = 1 tab(s), Oral, q12hr, X 10 day(s), # 20 tab(s), Refills(s) 0, Pharmacy: [facility]/pharmacy #6177, 167, cm, 11/04/23 17:47:00 EST, Height/Length Dosing, 73.5, kg, 11/04/23 17:47:00 EST, Weight Dosing 4. Colitis (K52.9: Noninfective gastroenteritis and colitis, unspecified) Ordered: amoxicillin-clavulanate, = 1 tab(s), Oral, q12hr, X 10 day(s), # 20 tab(s), Refills(s) 0, Pharmacy: [facility]/pharmacy #6177, 167, cm, 11/04/23 17:47:00 [...] EST, STAT, Start date 11/04/23 19:13:00 EST, 12/20/23 19:13:00 EST Sodium Chloride 0.9% intravenous solution [...] Level PT & PTT Rapid COVID Antigen ([facility]) Saline Lock Insert Troponin 0 Hr. UA [...] MD In 3 days 11/07/2023 EST [id number]- Additional Instructions: Patient Education COVID-19 Colitis Hyp (more content not included)... Normal [facility] Comment on above: Result Comment: Elec tronically Signed By: Barbara Brand PA-C\.br\Date and Time Signed: 11/04/23 20:21 EST\.br\Electronically Co-Signed By: Kavon Johnson DO\.br\Date and Time Co-Signed: 11/08/23 19:04 EST Reportability Response - Pub lic Healthon 11-08-2023 Reportability Response - Public Health {ti-9e-3o-v2-a6-b6-48-3d- i8-mv-4u-as-xb-s4-f5-2f}X ML Normal [facility] Auto Diffon 11-04-2023 Basophils/100 WBC (Bld) 0.3 % Normal 0.0-2.0 F [facility] Comment on above: Order Comment: Order Added by Discern Expert. Performed By: #### 1 0196120, 3972941, 26641089, 59659841, 1644530, 7502420, 9110424, 4376822 ####[facility] [address] [place] [address] Basophils/Leukocytes Auto (Bld) [Pure # fraction] 0.0 E9/L Normal 0.0-0.2 [facility] Comment on above: Order Comment: Order Added by Discern Expert. Performed By: #### 1 0444231, 1120301, 21423398, 20027908, 9826233, 4498856, 3897245, 4370802 ####[address] [address] Eosinophils/100 WBC (Bld) 0.0 % Normal 0.0-8.0 [facility] Comment on above: Order Comment: Order Added by Discern Expert. Performed By: #### 1 0393351, 6778520, 77781052, 61719933, 1333844, 3680470, 1686746, 7504342 ####[address] [address] Eosinophils/Leukocytes Auto (Bld) [Pure # fraction] 0.0 E9/L Normal 0.0-0.5 [facility] Comment on above: Order Comment: Order Added by Discern Expert. Performed By: #### 1 7814065, 1327367, 68927373, 00244938, 3067457, 8459109, 9615461, 4791040 ####[address] [address] Lymphocytes/100 WBC (Bld) 18.0 % Normal 14.0-50.0 [facility] Comment on above: Order Comment: Order Added by Discern Expert. Performed By: #### 1 8099577, 9156445, 39274003, 75651961, 8141377, 5416466, 2482480, 6028849 ####[address] [place] [address] Lymphocytes/Leukocytes Auto (Bld) [Pure # fraction] 1.1 E9/L Normal 1.0-4.0 [facility] Comment on above: Order Comment: Order Added by Jose Expert. Performed By: #### 1 3413915, 2110107, 02014811, 23051872, 0639212, 3999699, 8275905, 5559603 ####[facility] [address] [place] [address] Monocytes/100 WBC (Bld) 8.0 % Normal 4.0-14.0 [facility] Comment on above: Order Comment: Order Added by Discern Expert. Performed By: #### 1 4169465, 9987028, 17180639, 75740471, 3140589, 3658930, 2042001, 8966799 ####[facility] [address] [place] [address] Monocytes/Leukocytes Auto (Bld) [Pure # fraction] 0.5 E9/L Normal 0.2-1.0 [facility] Comment on above: Order Comment: Order Added by Jose Expert. Performed By: #### 1 9932489, 4408826, 53427827, 02839551, 2393577, 5507466, 6886113, 5161891 ####[facility] [address] [place] [address] Neutrophils/100 WBC (Bld) 73.7 % Normal 36.0-75.0 [facility] Comment on above: Order Comment: Order Added by Jose Expert. Performed By: #### 1 5525915, 6001214, 86157954, 13165354, 6580447, 2044443, 1633929, 8828966 ####[facility] [address] [place] [address] Neutrophils/Leukocytes Auto (Bld) [Pure # fraction] 4.5 E9/L Normal 2.0-7.5 [facility] Comment on above: Order Comment: Order Added by Jose Expert. Performed By: #### 1 6076045, 8479552, 82706511, 28185387, 9825649, 9310902, 5417621, 3747436 ####[facility] [address] [place] [address] CBC w/ Auto Diffon Erythrocyte distribution width (RBC) [Ratio] 14.0 % Normal 10.9-14.2 [facility] Comment on above: Performed By: #### 1 6909398, 8836264, 86681766, 63930677, 2206772, 6154803, 1210909, 4460951 ####[facility] [address] [place] [address] Hematocrit (Bld) [Volume fraction] 33.4 % Low 37.7-49.0 [facility] Comment on above: Performed By: #### 1 3244186, 5472870, 97252692, 15002671, 2181333, 5406000, 2726696, 6514986 ####[facility] [address] [place] [address] Hemoglobin (Bld) [Mass/Vol] 11.3 g/dL Low 13.5-17.5 [facility] Comment on above: Performed By: #### 1 8609817, 7475560, 67824780, 03582702, 2379622, 0887298, 0079333, 1809403 ####[facility] [address] [place] [address] MCH (RBC) [Entitic mass] 30.4 pg Normal 27.0-34.0 [facility] Comment on above: Performed By: #### 1 5066906, 4034941, 81362538, 57427008, 6637116, 8884028, 4226034, 2516941 ####[facility] [address] [place] [address] MCHC (RBC) [Mass/Vol] 33.9 g/dL Normal 31.4-36.0 [facility] Comment on above: Performed By: #### 1 4140624, 9102707, 59740808, 48125585, 4295540, 1435961, 4826245, 7488497 ####[facility] [address] [place] [address] MCV (RBC) [Entitic vol] 89.7 fL Normal 80.0-100.0 F [facility] Comment on above: Performed By: #### 1 9135353, 3283091, 71179244, 77331512, 1395006, 3190881, 3284242, 4614232 ####[facility] [address] [place] [address] Platelet mean volume (Bld) [Entitic vol] 6.4 fL Normal 6.4-10.8 [facility] Comment on above: Performed By: #### 1 8440302, 3334284, 00830110, 36604890, 9675531, 1474724, 5698242, 4856847 ####[facility] [address] [place] [address] Platelets (Bld) [#/Vol] 224.0 E9/L Normal 150. 0-500. 0 [facility] Comment on above: Performed By: #### 1 6148556, 1485056, 18597986, 08091125, 8675931, 8237523, 5452714, 8768961 ####[facility] [address] [place] [address] RBC (Bld) [#/Vol] 3.7 E12/L Low 4.3-5.9 [facility] Comment on above: Performed By: #### 1 1960576, 7579295, 88073953, 65352300, 4131523, 5790302, 1286404, 8632498 ####[facility] [address] [place] [address] WBC corrected for nucl RBC Auto (Bld) [#/Vol] 6.0 E9/L Normal 4.0-11.0 [facility] Comment on above: Performed By: #### 1 9424309, 1848684, 34020955, 05121825, 3991901, 4641849, 4984443, 4780950 ####[facility] [address] [place] [address] CMPon 11-04-2023 Albumin [Mass/Vol] 3.4 g/dL Normal 3.3-5.0 [facility] Comment on above: Performed By: #### 1 4026155, 3047027, 38134495, 91138192, 9632141, 1679131, 5643116, 0459044 ####[facility] [address] [place] [address] Albumin/Globulin [Mass ratio] 1.1 {ratio} Normal 1.1-2.2 [facility] Comment on above: Performed By: #### 1 1254664, 2044586, 08784821, 86976402, 3166506, 6943537, 5391961, 2150372 ####[facility] [address] [place] [address] Alk Phos 106 Int._Unit/L High 21-98 [facility] Comment on above: Performed By: #### 1 2759435, 8053272, 74395002, 45962609, 9499113, 8822735, 1991436, 5146513 ####[facility] [address] [place] [address] ALT 19 Int._Unit/L Normal 6-46 [facility] Comment on above: Performed By: #### 1 6332570, 8245675, 40697982, 50746930, 3873871, 1306645, 6126507, 4843892 ####[facility] [address] [place] [address] Anion gap [Moles/Vol] 10 mmol/L Normal 6-16 [facility] Comment on above: Performed By: #### 1 7716199, 3584391, 25409583, 19924326, 8824658, 6468275, 0031300, 9696908 ####[facility] [address] [place] [address] AST 25 Int._Unit/L Normal 5-43 [facility] Comment on above: Performed By: #### 1 5076096, 7215355, 02735548, 83560523, 7115862, 3746121, 3361851, 3392766 ####[facility] [address] [place] [address] Bili Total 0.5 mg/dL Normal 0.0-1.1 [facility] Comment on above: Performed By: #### 1 1997953, 5755696, 11542640, 63432995, 0844157, 0472628, 5242326, 3828630 ####[facility] [address] [place] [address] BUN/Creat Ratio 13 No Units Normal 10-20 [facility] Comment on above: Performed By: #### 1 4868851, 6176748, 93152618, 85832046, 2691069, 8721273, 3027889, 6953682 ####[facility] [address] [place] [address] Calcium [Mass/Vol] 8.2 mg/dL Low 8.9-11.1 [facility] [facility] Comment on above: Performed By: #### 1 7319531, 3023703, 42343812, 85179451, 2860200, 1013819, 1407677, 8474381 ####[facility] [address] [place] [address] Chloride [Moles/Vol] 105 mmol/L Normal 101-111 [facility] Comment on above: Performed By: #### 1 5740007, 4769315, 09619376, 87152062, 2395752, 8841335, 1333130, 0877828 ####[facility] [address] [place] [address] CO2 [Moles/Vol] 26 mmol/L Normal 21-31 [facility] Comment on above: Performed By: #### 1 2357298, 5375342, 26066826, 23997953, 7584224, 5287642, 6728033, 0082600 ####[facility] [address] [place] [address] Creatinine [Mass/Vol] 0.9 mg/dL Normal 0.5-1.3 [facility] Comment on above: Performed By: #### 1 7930979, 2779743, 91951674, 89350553, 0913880, 5230335, 4475611, 8284445 ####[facility] [address] [place] [address] Globulin (S) [Mass/Vol] 3.0 g/dL Normal 1.4-4.0 F [facility] Comment on above: Performed By: #### 1 9374879, 8326948, 06719191, 47320403, 8284844, 0631294, 2594409, 3307977 ####[facility] [address] [place] [address] Glucose [Mass/Vol] 102 mg/dL Normal 55-199 [facility] Comment on above: Performed By: #### 1 3576312, 7750485, 81344694, 37528553, 0920430, 9790051, 0989831, 5868041 ####[facility] [address] [place] [address] Potassium [Moles/Vol] 3.3 mmol/L Low 3.5-5.3 [facility] Comment on above: Performed By: #### 1 5856533, 6317435, 59482965, 02742000, 3137596, 4612737, 8250216, 7651768 ####[facility] [address] [place] [address] Protein [Mass/Vol] 6.4 g/dL Normal 6.0-7.8 [facility] Comment on above: Performed By: #### 1 6612379, 2404332, 23230006, 78219189, 2886168, 4555699, 4800545, 8338714 ####[facility] [address] [place] [address] Sodium [Moles/Vol] 138 mmol/L Normal 135-145 [facility] Comment on above: Performed By: #### 1 0573815, 0478131, 20966549, 20914941, 0611095, 7337528, 7340601, 0529359 ####[facility] [address] [place] [address] Urea nitrogen [Mass/Vol] 12 mg/dL Normal 5-21 [facility] Comment on above: Performed By: #### 1 3099469, 2327231, 96834242, 47320417, 0543905, 5210386, 7037599, 4007846 ####[facility] [address] [place] [address] CT Abdomen/Pelvis w/ Contras ton 11-04-2023 CT [...] 300 Contrast amount in ml's: [address] [facility] Consent for Treatmenton 10-17 Consent for Treatment [id number]#1.00TIFF Normal [facility] Discharge Instructionson Discharge Instructions [id number]#1.00TIFF Normal [facility] ED Clinical Summaryon 2022 ED Clinical Summary (Inserted Image. Perla ble to display) [place] [id number] ED Clinical Summary Person Information Name: JAM TOSCANO Emilie/[facility] Age: 58 Years : 1965 Sex: Male Language: Monegasque PCP: Jose L Lackey MD Marital Status: [...] 11/04/2023 20:23:46 11/04/2023 20:23:46 11/04/2023 20:23:46 ADDRESS: [address] [place] [address] [address] GAETANO [place] [id number] PHYS DOC NOTES: MEDICAL INFORMATION: Prescriptions Given: New Medications [id number] [address], [place] [id number], [phone] amoxicillin-clavulanate (Augmentin 875 mg oral tablet) 1 [...] With: Address: When: Jose L Lackey MD [address] [place] [address] In 3 days 11/07/2023 DIAGNOSIS: 1:COVID-19; 2:Hypokalemia; 3:Pneumonia due to COVID-19 virus; 4:Colitis; Pneumonia due to coronavirus disease 2019 [facility] ED Patient Education Noteon 11-04-2023 ED Patient Education Note Gastroenterology Colitis Colitis is a condition in which [...] you start to feel better. ? Take wjcv-ymi-fqlqhas and prescription medicines only as told by [...] provider. Document Revised: 07/09/2021 Document Reviewed: 07/09/2021 [employer] Patient Education ? 2022 Cell[employer]Point. Hypokalemia Hypokalemia means that the amount of [...] through an (more content not included)... Normal [facility] ED Patient Summaryon 023 ED Patient Summary (Inserted Image. Perla ble to display) [address], [place] [id number] Patient Discharge Instructions Person Information Name: JAM TOSCANO Age: 58 Years Arrival Date: 11/04/2023 17:35:01 Discharge Diagnosis: 1:COVID-19; 2:Hypokalemia; 3:Pneumonia due to COVID-19 virus; 4:Colitis; Pneumonia due to coronavirus disease 2018 Primary Care Physician: Jose L Lackey MD Provider Information Primary Provider: Kavon Johnson DO Advanced Turnstile Collector:None The exam and treatment you received in the Emergency Department were for an urgent problem and are not intended as complete care. It is important that you follow up with a doctor, nurse practitioner, or physician?s assistant curator for ongoing care. If your symptoms become [...] With: Address: When: Jose L Lackey MD [address] [place], [place] [id number] In 3 days 11/07/2023 In the event that this physician does not participate in your insurance network, please consult with your insurance company to find a nearby participating provider. Patient Education Materials: COVID-19; Colitis; Hypokalemia A MESSAGE TO ALL PATIENTS REGARDING OPIOIDS PRESCRIPTION OPIOIDS: WHAT YOU NEED TO KNOW Prescription opioids can be used to help relieve aadwvjsd-as-ypfxaa pain and are often prescribed following a [...] be struggling with addiction, tell your health child day care teacher and as (more content not included)... Normal [facility] Lactic Acidon 11-04-2023 Lactic Acid Lvl 1.0 mmol/L Normal 0.5-2.2 [facility] Comment on above: Performed By: #### 1 2755914, 6013853, 66746626, 93009228, 6908970, 8500977, 1836658, 5218306 ####[facility] [address] [place] [address] Magnesiumon 11-04-2023 Magnesium [Mass/Vol] 1.4 mg/dL Normal 1.3-2.4 Fish [facility] Comment on above: Performed By: #### 1 1620827, 1122775, 95207392, 84146958, 2999381, 1019971, 1236207, 6587912 ####[facility] [address] [place] [address] PT & PTTon 11-04-2023 aPTT Coag (PPP) [Time] 34.0 second(s) Normal 25.1-36.5 [facility] Comment on above: Result Comment: [...] the same coagulation reagent and instrumentation as [facility]. Currently there are no coagulation studies available worldwide for children to 14 days, and no normal ranges. Heparin therapeutic range (represented by Anti-Factor Xa activity of 0.2 - 0.4 U/mL) corresponds to PTT of 56.6 - 109.0 sec. Performed By: #### 1 3911825, 5481701, 88490901, 00166111, 8371623, 2030942, 5046019, 1062554 ####[facility] [address] [place] [address] INR Coag (PPP) [Relative time] 1.2 {INR} Invalid Interpretation Code [facility] Comment on above: Result Comment: INR results are specifically intended to assess patients stabilized on long-term Anticoagulation therapy suggested INR?s ?Less Intensive Anticoagulation? 2.0 ? 3.0 Conventional Range 3.0 ? 4.5 Performed By: #### 1 2456462, 4964335, 45226142, 79563368, 5321250, 6613465, 3613847, 2893779 ####[facility] [address] [place] [address] PT Coag (PPP) [Time] 13.7 second(s) High 9.4-12.5 [facility] Comment on above: Result Comment: [...] the same coagulation reagent and instrumentation as [facility]. Currently there are no coagulation studies available worldwide for children to 14 days, and no normal ranges. Performed By: #### 1 2861064, 5445613, 52811674, 68193052, 8536147, 1781031, 7959907, 7323332 ####[facility] [address] [place] [address] Rapid COVID Antigen ([facility])on 11-04-2023 Rapid COV Int NEG Ctl Pass Normal Fis [facility] Comment on above: Performed By: #### 2 [id number] ####[facility] [address] [place] [address] Rapid COV Int POS Ctl Pass Normal Fis her [facility] Comment on above: Performed By: #### 2 [id number] ####[facility] [address] [place] [address] SARS-CoV+SARS-CoV-2 (COVID-19) Ag IA.rapid Ql (Resp) Detected Abnormal Not Detected [facility] Comment on above: Result Comment: The Everlasting Footprint? System for Rapid Detection of SARS-CoV-2 is [...] or revoked sooner. Performed By: #### 2 [id number] ####[facility] [address] [facility] [place] [address] Reportability Response - Pub lic Healthon 11-04-2023 Reportability Response - Public Health {[id number]}X ML Normal [facility] Troponin 0 Hr.on 11-04-2023 Troponin 9.30 pg/mL Low 15.90-38.[address] [facility] Comment on above: Result Comment: The 95% CI (Confidence Interval) PPV (Positive Predictive Value) for myocardial infarction in females is 38 pg/mL, in males 51 pg/mL. The results should be used in conjunction with clinical conditions of myocardial infarction. (Access High Sensitivity Troponin I Instructions For Use, [employer], June 2018) Performed By: #### 1 4356523, 6767863, 45444826, 54215220, 8866802, 8301048, 4984423, 6512983 ####[facility] [address] [place] [address] UA With Cult Reflexon 2022 Bacteria LM Ql (Urine sed) 1+ /HPF Abnormal Trace [facility] Comment on above: Performed By: #### 1 8682149 ####[facility] [address] [place] [address] Bilirubin Ql (U) Negative Normal Negative [facility] Comment on above: Performed By: #### 1 3255004 ####[facility] [address] [place] [address] Clarity (U) CLOUDY Abnormal Clear [facility] Comment on above: Performed By: #### 1 9682542 ####[facility] [address] [place] [address] Color (U) YELLOW Normal Yellow [facility] Comment on above: Performed By: #### 1 5893119 ####[facility] [address] [place] [address] Crystals LM Ql (Urine sed) Present Normal [facility] Comment on above: Performed By: #### 1 5036344 ####[address] [address] Epithelial cells.squamous LM.HPF (Urine sed) [#/Area] 0-2 Normal 0-2 [facility] Comment on above: Performed By: #### 1 5940266 ####[address] [address] Glucose Test strip (U) [Mass/Vol] Negative Normal Negative [facility] Comment on above: Performed By: #### 1 6383950 ####[address] [address] Hemoglobin Ql (U) 3+ Abnormal Negative [facility] Comment on above: Performed By: #### 1 9759623 ####[address] [address] Ketones (U) [Mass/Vol] Negative Normal Negative [facility] Comment on above: Performed By: #### 1 4598170 ####[address] [address] [place].plasma/[place].R BC (Bld) [Mass ratio] 21-30 Abnormal 0-3 [facility] Comment on above: Performed By: #### 1 5599208 ####[address] [address] Nitrite Ql (U) Negative Normal Negative [facility] Comment on above: Performed By: #### 1 2357701 ####[address] [address] pH (U) 7.0 [pH] Invalid Interpretation Code 5.0-9.0 [facility] Comment on above: Performed By: #### 1 3589574 ####[address] [address] Protein (U) [Mass/Vol] 1+ Abnormal Negative [facility] Comment on above: Performed By: #### 1 1135679 ####[address] [address] Specific gravity (U) [Rel density] 1.020 Invalid Interpretation Code 1.005-1.[address] [facility] Comment on above: Performed By: #### 1 8805928 ####[facility] [address] [place] [address] Type of Urine collection method Clean Catch Normal [facility] Comment on above: Performed By: #### 1 1324014 ####[facility] [address] [place] [address] Urobilinogen Qn (U) 0.2 {Rosina'U}/dL Normal 0.0-1.0 [facility] Comment on above: Performed By: #### 1 2085538 ####[facility] [address] [place] [address] WBC Auto Ql (U) Negative Normal Negative [facility] Comment on above: Performed By: #### 1 5991886 ####[address] [address] WBC casts LM.LPF (Urine sed) [#/Area] 0-[address] [facility] Comment on above: Performed By: #### 1 8054127 ####[facility] [address] [place] [address] WBC LM.HPF (Urine sed) [#/Area] 0-5 Normal 0-5 [facility] Comment on above: Performed By: #### 1 3880229 ####[place] [address]157 XR Chest Single Viewon 11-04 XR Chest [...] mGy = na DAP = na Normal [facility] eGFRon 11-04-2023 GFR/1.73 sq M.predicted among non-blacks MDRD (S/P/Bld) [Vol rate/Area] mL/min/{1.73_m2} Normal >=59 [facility] Comment on above: Order Comment: Order added by Discern Expert. Performed By: #### 1 8458625, 8425222, 55810316, 09808469, 7636428, 9641709, 6965986, 4126352 ####[facility] [address] [place] [address] Auto Diffon 10-23-2023 Basophils/100 WBC (Bld) 0.2 % Normal 0.0-2.0 F [facility] Comment on above: Order Comment: Order Added by Discern Expert. Performed By: #### 2 656722, 8704258, 3493180, 8781137, 00398127, 9069414 #### [facility] [address] [place] [address] Basophils/Leukocytes Auto (Bld) [Pure # fraction] 0.0 E9/L Normal 0.0-0.2 [facility] Comment on above: Order Comment: Order Added by Discern Expert. Performed By: #### 2 783603, 3759860, 8873455, 1071297, 47855095, 7244175 #### [facility] [address] [place] [address] Eosinophils/100 WBC (Bld) 0.0 % Normal 0.0-8.0 [facility] Comment on above: Order Comment: Order Added by Discern Expert. Performed By: #### 2 500995, 7673091, 1308192, 1469395, 80115004, 7032708 #### [facility] [address] [place] [address] Eosinophils/Leukocytes Auto (Bld) [Pure # fraction] 0.0 E9/L Normal 0.0-0.5 [facility] Comment on above: Order Comment: Order Added by Discern Expert. Performed By: #### 2 738634, 9258786, 9441249, 0746407, 89493052, 1896965 #### [facility] [address] [place] [address] Lymphocytes/100 WBC (Bld) 7.8 % Low 14.0-50.0 [facility] Comment on above: Order Comment: Order Added by Discern Expert. Performed By: #### 2 898312, 6266779, 0889789, 3335960, 60506816, 1839618 #### [facility] [address] [place] [address] Lymphocytes/Leukocytes Auto (Bld) [Pure # fraction] 0.8 E9/L Low 1.0-4.0 [facility] Comment on above: Order Comment: Order Added by Jose Expert. Performed By: #### 2 260323, 1029844, 3564106, 0284022, 21900473, 1991983 #### [facility] [address] [place] [address] Monocytes/100 WBC (Bld) 1.6 % Low 4.0-14.0 [facility] Comment on above: Order Comment: Order Added by Jose Expert. Performed By: #### 2 453580, 8748532, 9119230, 4316837, 11636301, 7522492 #### [facility] [address] [place] [address] Monocytes/Leukocytes Auto (Bld) [Pure # fraction] 0.2 E9/L Normal 0.2-1.0 [facility] Comment on above: Order Comment: Order Added by Jose Expert. Performed By: #### 2 992018, 3120520, 4408749, 6723170, 74108129, 0654028 #### [facility] [address] [place] [address] Neutrophils/100 WBC (Bld) 90.4 % High 36.0-75.0 [facility] Comment on above: Order Comment: Order Added by Jose Expert. Performed By: #### 2 798894, 1805632, 8612978, 8769585, 35750606, 4399451 #### [facility] [address] [place] [address] Neutrophils/Leukocytes Auto (Bld) [Pure # fraction] 8.9 E9/L High 2.0-7.5 [facility] Comment on above: Order Comment: Order Added by Discern Expert. Performed By: #### 2 012012, 2213709, 9699841, 9256831, 41683059, 8164112 #### [facility] [address] [place] [address] BMPon 10-23-2023 Creatinine [Mass/Vol] 0.8 mg/dL Normal 0.5-1.3 [facility] Comment on above: Performed By: #### 2 271994, 0575782, 4258453, 9464631, 04579799, 4321519 ####[facility] [address] [place] [address] Urea nitrogen [Mass/Vol] 12 mg/dL Normal 5-21 [facility] Comment on above: Performed By: #### 2 140981, 8363263, 3900195, 1713325, 74480265, 4272342 ####[facility] [address] [place] [address] Urea nitrogen/Creatinine [Mass ratio] 15 No Units Normal 10-20 [facility] Comment on above: Performed By: #### 2 014059, 1920878, 8329378, 7712288, 45406648, 3178181 ####[facility] [address] [place] [address] Anion gap [Moles/Vol] 11 mmol/L Normal 6-16 [facility] Comment on above: Performed By: #### 2 490239, 7443356, 5138007, 0517078, 68869172, 9853982 ####[facility] [address] [place] [address] Calcium [Mass/Vol] 9.5 mg/dL Normal 8.9-11.1 [facility] Comment on above: Performed By: #### 2 680721, 0050882, 3548230, 9857048, 38766869, 6290660 ####[facility] [address] [place] [address] Chloride [Moles/Vol] 110 mmol/L Normal 101-111 Fish [facility] Comment on above: Performed By: #### 2 533377, 3741098, 2023468, 5137039, 45573409, 7400745 ####[facility] [address] [place] [address] CO2 [Moles/Vol] 22 mmol/L Normal 21-31 [facility] Comment on above: Performed By: #### 2 958507, 8083547, 2709981, 8024032, 58851087, 0547761 ####[facility] [address] [place] [address] Glucose [Mass/Vol] 149 mg/dL Normal 55-199 [facility] Comment on above: Result Comment: If t his glucose result represents a fasting glucose, interpretation should refer to the following reference range: 55-99 mg/dL Performed By: #### 2 397636, 8045172, 9423443, 6548632, 20132567, 1486882 ####[facility] [address] [place] [address] Potassium [Moles/Vol] 3.4 mmol/L Low 3.5-5.3 [facility] Comment on above: Performed By: #### 2 255477, 9767443, 7649043, 2507359, 44755572, 9202568 ####[facility] [address] [place] [address] Sodium [Moles/Vol] 140 mmol/L Normal 135-145 [facility] Comment on above: Performed By: #### 2 521136, 0059595, 6230760, 8867499, 04893011, 6975645 ####[facility] [address] [place] [address] CBC w/ Auto Diffon 3 Erythrocyte distribution width (RBC) [Ratio] 13.7 % Normal 10.9-14.2 [facility] Comment on above: Performed By: #### 2 015610, 3295120, 4317230, 4557548, 29186346, 6643958 #### [facility] [address] [place] [address] Hematocrit (Bld) [Volume fraction] 38.3 % Normal 37.7-49.0 [facility] Comment on above: Performed By: #### 2 881394, 6438567, 9811161, 0843640, 36803234, 3252752 #### [facility] [address] [place] [address] Hemoglobin (Bld) [Mass/Vol] 12.9 g/dL Low 13.5-17.5 [facility] Comment on above: Performed By: #### 2 238900, 3610041, 6717973, 6919326, 10168164, 3373262 #### [facility] [address] [place] [address] MCH (RBC) [Entitic mass] 30.4 pg Normal 27.0-34.0 [facility] Comment on above: Performed By: #### 2 849918, 0710932, 9580769, 0878596, 25712787, 1406361 #### [facility] [address] [place] [address] MCHC (RBC) [Mass/Vol] 33.7 g/dL Normal 31.4-36.0 [facility] Comment on above: Performed By: #### 2 103661, 4227661, 9450831, 9659995, 64396709, 6288068 #### [facility] [address] [place] [address] MCV (RBC) [Entitic vol] 90.2 fL Normal 80.0-100.0 F [facility] Comment on above: Performed By: #### 2 255365, 8238936, 3490365, 1060074, 99592979, 2192457 #### [facility] [address] [place] [address] Platelet mean volume (Bld) [Entitic vol] 6.1 fL Low 6.4-10.8 [facility] Comment on above: Performed By: #### 2 347179, 5526337, 9346818, 2383994, 00803296, 4925622 #### [facility] [address] [place] [address] Platelets (Bld) [#/Vol] 483.0 E9/L Normal 150. 0-500. 0 [facility] Comment on above: Performed By: #### 2 708459, 0274911, 7131653, 5963322, 62762422, 8485668 #### [facility] [address] [place] [address] RBC (Bld) [#/Vol] 4.2 E12/L Low 4.3-5.9 [facility] Comment on above: Performed By: #### 2 565806, 6458861, 6582693, 4738026, 18509658, 8883716 #### [facility] [address] [place] [address] WBC corrected for nucl RBC Auto (Bld) [#/Vol] 9.8 E9/L Normal 4.0-11.0 [facility] Comment on above: Performed By: #### 2 429966, 7234894, 3935581, 9832087, 89483226, 2130501 #### [facility] [address] [place] [address] CT Abdomen/Pelvis w/o Contra ston 10-23-2023 CT [...] Oral contrast amount in ml's: [address] [facility] Consent for Treatmenton Consent for Treatment [id number]#1.00TIFF Normal [facility] Discharge Instructionson Discharge Instructions [id number]#1.00TIFF Normal [facility] ED Clinical Summaryon 2022 ED Clinical Summary (Inserted Image. Perla ble to display) [address] [address] ED Clinical Summary Person Information Name: JAM TOSCANO/[facility]_Panda Age: 58 Years : 1965 Sex: Male Language: Monegasque PCP: Jose L Lackey MD Marital Status: [...] 10/23/2023 15:54:39 10/23/2023 15:54:39 10/23/2023 15:54:39 ADDRESS: [address] [place] [address] DR GAETANO Barrios [place] [id number] PHYS DOC NOTES: MEDICAL INFORMATION: Prescriptions Given: New Medications [facility], [address], [place] [id number], [phone] acetaminophen-oxycodone (acetaminophen-oxycodone 325 mg-5 mg Tab) 1 [...] That Have Changed [facility], [address], [place] [id number], [phone] START: ondansetron (Zofran ODT 4 mg Tab-Dis) [...] Follow up: With: Address: When: Otilia Layne [facility] [employer], [place] [address], [employer] [address] [place], [place] [phone] Business (1) In 3 days (more content not included)... Normal [facility] ED Note-Physicianon 10-23-20 ED Note-Physician [...] for 3 day(s), 12 tab(s), Refill(s) 0, [facility]/pharmacy #6177, 168, cm, 10/23/23 13:41:00 EST, Height/Length Dosing, 75.1, kg, 10/23/23 13:41:00 EST, Weight Dosing ketorolac, 30 mg = 1 mL, Injection, IV Push, Once, Stop date 10/23/23 14:29:00 EST, STAT, Start date 10/23/23 14:29:00 EST, 10/23/23 14:29:00 EST naproxen, 500 mg = 1 tab(s), Oral, BID, PRN for pain, # 20 tab(s), Refills(s) 0, Pharmacy: [facility]/pharmacy #[id number], 168, cm, 10/23/23 13:41:00 EST, Height/Length Dosing, 75.1, kg, 10/23/23 13:41:00 EST, Weight Dosing ondansetron, 4 mg = 2 mL, Injection, IV Push, Once, Stop date 10/23/23 14:30:00 EST, STAT, Start date 10/23/23 14:30:00 EST, 10/23/23 14:30:00 EST ondansetron, 4 mg = 1 tab(s), Oral, q8hr, PRN Nausea/Vomiting, # 30 tab(s), Refills(s) 0, Pharmacy: [facility]/pharmacy #[id number], 168, cm, 10/23/23 13:41:00 EST, Height/Length Dosing, 75.1, kg, 10/23/23 13:41:00 EST, Weight Dosing Sodium Chloride 0.9% intravenous solution, 1,000 mL, Soln-IV, IV, Once, Stop date 10/23/23 14:29:00 EST, STAT, Start date 10/23/23 14:29:00 EST, Infuse over 61, minute(s) tamsulosin, 0.4 mg = 1 cap(s), Oral, Daily, # 10 cap(s), Refills(s) 0, Pharmacy: [facility]/pharmacy #[id number], 168, cm, 10/23/23 13:41:00 EST, Height/Length Dosing, 75.1, k (more content not included)... Normal [facility] Comment on above: Result Comment: [...] these instructions at home: Medicines ? Take fual-ogg-phqqzsw and prescription medicines only as told by [...] recommendations from (more content not included)... Normal [facility] ED Patient Summaryon 023 ED Patient Summary (Inserted Image. Perla ble to display) [place] [id number] Patient Discharge Instructions Person Information Name: JAM TOSCANO Age: 58 Years Arrival Date: 10/23/2023 13:30:39 Discharge Diagnosis: Kidney stone on left side Primary Care Physician: Jose L Lackey MD Provider Information Primary Provider: Zoila Castillo M.D. Advanced Turnstile Collector:None The exam and treatment you received in the Emergency Department were for an urgent problem and are not intended as complete care. It is important that you follow up with a doctor, nurse practitioner, or physician?s assistant curator for ongoing care. If your symptoms become worse or you do not improve as expected and you are unable to reach your usual health care provider, you should return to the Emergency Department. We are available 24 hours a day. JAM TOSCANO has been given the following list of patient education materials, prescriptions and follow-up instructions: Follow-up Instructions: With: Address: When: Otilia Layne [address] [place], [place] [phone] Business (1) In 3 days 10/26/2023 Comments: Follow-up with urology for further evaluation of your left-sided kidney stones. With: Address: When: Jose L Lackey [address] [facility], [place] [address] [place] [address] [employer] Acquisition (1) In 3 days 10/26/2023 Comments: Follow-up [...] opioids can be used to help relieve bhsnjkad-pj-vbhfxh pain and are often prescribed following a [...] your pharma (more content not included)... Normal [facility] Hep Func Panelon 10-23-2023 Bilirubin.indirect [Mass or moles/Vol] UTC Abnormal 0.1-0.9 [facility] Comment on above: Result Comment: Resu lt verified by Discern Rule. Performed result UTC (Unable to Calculate) was sent as an Alpha code due the inability to calculate a valid numeric value. Performed By: #### 2 430908, 7423846, 7740141, 2221435, [id number], 4771414 ####[facility] [address] [place] [address] Albumin [Mass/Vol] 3.5 g/dL Normal 3.3-5.0 [facility] Comment on above: Performed By: #### 2 072991, 8047632, 1877410, 0115527, 38763252, 7966055 ####[facility] [address] [place] [address] Albumin/Globulin (S) [Mass conc ratio] 1.0 Low 1.1-2.2 [facility] Comment on above: Performed By: #### 2 925849, 5871314, 0656126, 5047690, 07281431, 7413321 ####[facility] [address] [place] [address] ALP [Catalytic activity/Vol] 194 Int._Unit/L High 21-98 [facility] Comment on above: Performed By: #### 2 463570, 3488234, 1942407, 5987505, 99727896, 0517085 ####[facility] [address] [place] [address] ALT No additional P-5'-P [Catalytic activity/Vol] 32 Int._Unit/L Normal 6-46 [facility] Comment on above: Performed By: #### 2 271058, 4344340, 5296946, 7476830, 59597102, 7204427 ####[place] [address] [place] [address] AST [Catalytic activity/Vol] 34 Int._Unit/L Normal 5-43 [facility] Comment on above: Performed By: #### 2 778342, 5768800, 4762129, 7647071, 22240745, 5691493 ####[facility] [address] [place] [address] Bilirubin [Mass/Vol] 0.4 mg/dL Normal 0.0-1.1 [facility] Comment on above: Performed By: #### 2 245917, 8724056, 7790619, 2365512, 30905340, 7354736 ####[facility] [address] [place] [address] Globulin (S) [Mass/Vol] 3.7 g/dL Normal 1.4-4.0 F [facility] Comment on above: Performed By: #### 2 766798, 9134454, 7499057, 0721576, 76517457, 3983609 ####[facility] [address] [place] [address] Protein [Mass/Vol] 7.2 g/dL Normal 6.0-7.8 [facility] Comment on above: Performed By: #### 2 284892, 8740458, 1767781, 0929734, 27402364, 9202545 ####[facility] [address] [place] [address] Bilirubin.direct [Mass/Vol] mg/dL Normal 0.1-0.4 [facility] Comment on above: Performed By: #### 2 368384, 1386089, 4528400, 7041623, 45190473, 9237239 ####[facility] [address] [place] [address] Lipase Levelon 10-23-2023 Lipase [Catalytic activity/Vol] 31 U/L Normal 13-58 [facility] Comment on above: Performed By: #### 2 973896, 6394295, 3996044, 4573807, 70125599, 7729803 #### [facility] [address] [place] [address] Physician Orderon 10-23-2023 Physician Order [id number] Normal [facility] UA With Cult Reflexon 2022 Bacteria LM Ql (Urine sed) 1+ /HPF Abnormal Trace [facility] Comment on above: Performed By: #### 1 [id number] #### [facility] [address] [place] [address] Bilirubin Ql (U) Negative Normal Negative [facility] Comment on above: Performed By: #### 1 3335812 #### [facility] [address] [place] [address] Clarity (U) CLEAR Normal Clear [facility] Comment on above: Performed By: #### 1 5799427 #### [facility] [address] [place] [address] Color (U) YELLOW Normal Yellow [facility] Comment on above: Performed By: #### 1 2386556 #### [facility] [address] [place] [address] Epithelial cells.squamous LM.HPF (Urine sed) [#/Area] 0-2 Normal 0-2 [facility] Comment on above: Performed By: #### 1 9902619 #### [facility] [address] [place] [address] Glucose Test strip (U) [Mass/Vol] Negative Normal Negative [facility] Comment on above: Performed By: #### 1 1038451 #### [facility] [address] [place] [address] Hemoglobin Ql (U) 3+ Abnormal Negative [facility] Comment on above: Performed By: #### 1 6482866 #### [facility] [address] [place] [address] Ketones (U) [Mass/Vol] Negative Normal Negative [facility] Comment on above: Performed By: #### 1 0940570 #### [facility] [address] [place] [address] [place].plasma/[place].R BC (Bld) [Mass ratio] 4-20 Normal 0-3 [facility] Comment on above: Performed By: #### 1 7994121 #### [facility] [address] [place] [address] Mucus Ql (Urine sed) TRACE Normal [facility] Comment on above: Performed By: #### 1 7312930 #### [facility] [address] [place] [address] Nitrite Ql (U) Negative Normal Negative [facility] Comment on above: Performed By: #### 1 0511930 #### [facility] [address] [place] [address] pH (U) 6.0 [pH] Invalid Interpretation Code 5.0-9.0 [facility] Comment on above: Performed By: #### 1 0232155 #### [facility] [address] [place] [address] Protein (U) [Mass/Vol] TRACE Abnormal Negative [facility] Comment on above: Performed By: #### 1 7463081 #### [facility] [address] [place] [address] Specific gravity (U) [Rel density] 1.010 Invalid Interpretation Code 1.005-1.[address] [facility] Comment on above: Performed By: #### 1 5233733 #### [facility] [address] [place] [address] Type of Urine collection method Clean Catch Normal [facility] Comment on above: Performed By: #### 1 5355593 #### [facility] [address] [place] [address] Urobilinogen Qn (U) 0.2 {Rosina'U}/dL Normal 0.0-1.0 [facility] Comment on above: Performed By: #### 1 0550539 #### [facility] [address] [place] [address] WBC Auto Ql (U) TRACE Abnormal Negative [facility] Comment on above: Performed By: #### 1 8080473 #### [facility] [address] [place] [address] WBC LM.HPF (Urine sed) [#/Area] 0-5 Normal 0-5 [facility] Comment on above: Performed By: #### 1 1193907 #### [facility] [address] [place] [address] eGFRon 10-23-2023 GFR/1.73 sq M.predicted among non-blacks MDRD (S/P/Bld) [Vol rate/Area] 102 mL/min/1.73 m2 Normal >=59 [facility] Comment on above: Order Comment: Order added by Discern Expert. Result Comment: Mesmerist clark kidney disease could be indicated at eGFR's of less than 60 mL/min/1.73m2. Kidney failure is indicated at less than 15 mL/min/1.73m2. Performed By: #### 2 600276, 7529067, 5008168, 1424040, 78302179, 1406184 ####[facility] [address] [place] [address] Physician Orderon 07-02-2023 Physician Order [id number]:[id number] [facility] LIPID PROFILEon 02-11-2023 CHOL-HDL RATIO NORM SEE BELOW Normal [facility] Comment on above: Result Comment: 3.3 - 4.4 LOW RISK 4.4 - 7.1 AVERAGE RISK 7.1 - 11.0 MODERATE RISK >11.0 HIGH RISK Performed By: #### L IPID, LIVER #### [facility] [address] [place] [address] [address] Rj Miller Cholesterol [Mass/Vol] 99 mg/dL Normal <=200 Th [facility] Comment on above: Performed By: #### L IPID, LIVER #### [facility] [address] [place] [address] [address] Rj Miller Cholesterol in HDL [Mass/Vol] 44 mg/dL Normal 40-60 [facility] Comment on above: Performed By: #### L IPID, LIVER #### [facility] [address] [place] [address] Dr. Rj Miller Cholesterol in LDL [Mass/Vol] 45.4 mg/dL Normal [facility] Comment on above: Performed By: #### L IPID, LIVER #### [facility] [address] [place] [address] [address] Rj Miller Cholesterol.total/Choles terol in HDL [Mass ratio] 2.3 {ratio} Normal [facility] Comment on above: Performed By: #### L IPID, LIVER #### [facility] [address] [place] [address] [address] Rj Miller HDL NORMAL > or = 60 mg/dl - LO W CARDIOVASCULAR RISK <40 mg/dl - HIGH CARDIOVASCULAR RISK Normal [facility] Comment on above: Performed By: #### L IPID, LIVER #### [facility] [address] [place] [address] Dr. Rj Miller LDL CALC NORMAL SEE BELOW Normal [facility] Comment on above: Result Comment: <100 mg/dl OPTIMAL 100 - 129 mg/dl NEAR OR ABOVE OPTIMAL 130 - 159 mg/dl BORDERLINE HIGH 160 - 189 mg/dl HIGH >190 mg/dl VERY HIGH Performed By: #### L IPID, LIVER #### [facility] [address] [place] [address] Dr. Rj Miller Triglyceride [Mass/Vol] 48 mg/dL Normal <=150 T [facility] Comment on above: Performed By: #### L IPID, LIVER #### [facility] [address] [place] [address] Dr. Rj Miller VLDL CALC 9.6 mg/dL Normal [facility] Comment on above: Performed By: #### L IPID, LIVER #### [facility] [address] [place] [address] Dr. Rj Miller LIVER PROFILEon 02-11-2023 Albumin [Mass/Vol] 3.7 g/dL Normal 3.4-5.0 [facility] Comment on above: Performed By: #### L IPID, LIVER #### [facility] [address] [place] [address] Dr. Rj Miller Albumin/Globulin [Mass ratio] 1.0 {ratio} Normal [facility] Comment on above: Performed By: #### L IPID, LIVER #### [facility] [address] [place] [address] Dr. Rj Miller ALP [Catalytic activity/Vol] 210 U/L Critically high 46-116 [facility] Comment on above: Performed By: #### L IPID, LIVER #### [facility] [address] [place] [address] Dr. Rj Miller ALT [Catalytic activity/Vol] 50 U/L Normal 16-63 [facility] Comment on above: Performed By: #### L IPID, LIVER #### [facility] [address] [place] [address] Dr. Rj Miller AST [Catalytic activity/Vol] 42 U/L Critically high 15-37 [facility] Comment on above: Performed By: #### L IPID, LIVER #### [facility] [address] [place] [address] Dr. Rj Miller BILI, CONJUGATED 0.1 mg/dL Normal 0.0-0.2 [facility] Comment on above: Performed By: #### L IPID, LIVER #### [facility] [address] [place] [address] Dr. Rj Miller Bilirubin [Mass/Vol] 0.3 mg/dL Normal 0.2-1.0 [facility] Comment on above: Performed By: #### L IPID, LIVER #### [facility] [address] [place] [address] Dr. Rj Miller Globulin (S) [Mass/Vol] 3.7 g/dL Normal [facility] Comment on above: Performed By: #### L IPID, LIVER #### [facility] [address] [place] [address] Dr. Rj Miller Protein [Mass/Vol] 7.4 g/dL Normal 6.4-8.2 [facility] Comment on above: Performed By: #### L IPID, LIVER #### [facility] [address] [place] [address] Dr. Rj Miller 25-hydroxyvitamin D3 [Mass/V ol]on 01-14-2023 Vitamin D 25 [place] 40.2 ng/mL 30 - 100 ng/mL [facility] MRI LSPINE WO CONon 11-24-19 MRI LSPINE WO CON EXAMINATION: MRI LSP [...] complex. No central or foraminal stenosis IMPRESSION: Ppef-un-ozdnfzcy degenerative changes resulting in mild left L2-L3 and mild right L3-L4 foraminal stenosis Electronically authenticated by: KALEIGH CANTOR Date: 2022-11-24 11:35 Normal [facility] XR LSPINE MIN 4 VIEWSon 10-17 [...] by: JENNY TAPIA Date: 2022-11-07 11:13 Normal [facility] DXA-AXIAL SKELETONon 022 LOWEST T-SCORE -2.5 [facility] CBC AUTO DIFFon 09-24-2022 BASO # 0.0 103/ul Normal 0.0-0.1 [facility] Comment on above: Performed By: #### C BC #### [facility] [address] [address] [address] Rj Miller Basophils/100 WBC (Bld) 0.5 % Normal 0.2-2.0 [facility] Comment on above: Performed By: #### C BC #### [facility] [address] [place] [address] [address] Rj Miller EO # 0.2 103/ul Normal 0.0-0.7 [facility] Comment on above: Performed By: #### C BC #### [facility] [address] [place] [address] Dr. Rj Miller Eosinophils/100 WBC (Bld) 1.8 % Normal 0.9-7.0 [facility] Comment on above: Performed By: #### C BC #### [facility] [address] [place] [address] Dr. Rj Miller Erythrocyte distribution width (RBC) [Ratio] 13.6 % Normal 11.0-15.0 [facility] Comment on above: Performed By: #### C BC #### [facility] [address] [place] [address] Dr. Rj Miller Hematocrit (Bld) [Volume fraction] 41.3 % Critically low 42.0-54.0 [facility] Comment on above: Performed By: #### C BC #### [facility] [address] [place] [address] Dr. Rj Miller Hemoglobin (Bld) [Mass/Vol] 14.1 g/dL Normal 14.0-18.0 [facility] Comment on above: Performed By: #### C BC #### [facility] [address] [place] [address] Dr. Rj Miller IG # 0.02 10e3/ul Normal 0.00-0.03 [facility] Comment on above: Performed By: #### C BC #### [facility] [address] [place] [address] Dr. Rj Miller IG % 0.2 % Normal 0.0-0.5 [facility] Comment on above: Performed By: #### C BC #### [facility] [address] [place] [address] Dr. Rj Miller LYMPH # 2.4 103/ul Normal 1.2-3.8 [facility] Comment on above: Performed By: #### C BC #### [facility] [address] [place] [address] Dr. Rj Miller Lymphocytes/100 WBC (Bld) 29.5 % Normal 20.5-60.0 [facility] Comment on above: Performed By: #### C BC #### [facility] [address] [place] [address] Dr. Rj Miller MANUAL DIFF REQ NO Normal [facility] Comment on above: Performed By: #### C BC #### [facility] [address] [place] [address] Dr. Rj Miller MCH (RBC) [Entitic mass] 31.1 pg Normal 25.9-34.0 [facility] Comment on above: Performed By: #### C BC #### [facility] [address] [place] [address] Dr. Rj Miller MCHC (RBC) [Mass/Vol] 34.1 g/dL Normal 29.9-35.2 [facility] Comment on above: Performed By: #### C BC #### [facility] [address] [place] [address] Dr. Rj Miller MCV (RBC) [Entitic vol] 91.0 fL Normal 80.0-94.0 [facility] Comment on above: Performed By: #### C BC #### [facility] [address] [place] [address] Dr. Rj Miller MONO # 0.7 103/ul Normal 0.3-0.8 [facility] Comment on above: Performed By: #### C BC #### [facility] [address] [place] [address] Dr. Rj Miller Monocytes/100 WBC (Bld) 8.3 % Normal 1.7-12.0 [facility] Comment on above: Performed By: #### C BC #### [facility] [address] [place] [address] Dr. Rj Miller NEUT # 4.9 103/ul Normal 1.4-6.5 [facility] Comment on above: Performed By: #### C BC #### [facility] [address] [place] [address] Dr. Rj Miller Neutrophils/100 WBC (Bld) 59.7 % Normal 43.0-75.0 [facility] Comment on above: Performed By: #### C BC #### [facility] [address] [place] [address] Dr. Rj Miller Platelet mean volume (Bld) [Entitic vol] 8.8 fL Critically low 9.5-13.5 [facility] Comment on above: Performed By: #### C BC #### [facility] [address] [place] [address] Dr. Rj Miller PLT 288 103/ul Normal 150-450 [facility] Comment on above: Performed By: #### C BC #### [facility] [address] [place] [address] Dr. Rj Miller RBC 4.54 106/ul Critically low 4.70-6.10 [facility] Comment on above: Performed By: #### C BC #### [facility] [address] [place] [address] Dr. Rj Miller WBC 8.2 103/ul Normal 4.0-11.0 [facility] Comment on above: Performed By: #### C BC #### [facility] [address] [place] [address] Dr. Rj Miller Covid-19 PCR ([facility])on SARS-CoV-2 (COVID-19) RNA BERNARDO+probe Ql (Unsp spec) Not detected Normal NOT DETECTED [facility] Comment on above: Result Comment: [...] for this test is supported by the Physiotherapist'S Assistant of Health and Human Service's declaration that [...] used). Performed By: #### C VDTBH #### [facility] [address] [place] [address] Dr. Rj Miller LIPASEon 09-24-2022 Lipase [Catalytic activity/Vol] 17.0 U/L Critically low 73.0-393.0 [facility] Comment on above: Performed By: #### C MP, LIPA, HSTROPN #### [facility] [address] [place] [address] Dr. Rj Miller PROF 14(COMP METB)on 022 Albumin [Mass/Vol] 3.8 g/dL Normal 3.4-5.0 [facility] Comment on above: Performed By: #### C MP, LIPA, HSTROPN #### [facility] [address] [place] [address] Dr. Rj Miller Albumin/Globulin [Mass ratio] 1.0 {ratio} Normal [facility] Comment on above: Performed By: #### C MP, LIPA, HSTROPN #### [facility] [address] [place] [address] Dr. Rj Miller ALP [Catalytic activity/Vol] 180 U/L Critically high 46-116 [facility] Comment on above: Performed By: #### C MP, LIPA, HSTROPN #### [facility] [address] [place] [address] Dr. Rj Miller ALT [Catalytic activity/Vol] 38 U/L Normal 16-63 [facility] Comment on above: Performed By: #### C MP, LIPA, HSTROPN #### [facility] [address] [place] [address] Dr. Rj Miller Anion gap [Moles/Vol] 8.7 mmol/L Normal [facility] Comment on above: Performed By: #### C MP, LIPA, HSTROPN #### [facility] [address] [place] [address] Dr. Rj Miller AST [Catalytic activity/Vol] 28 U/L Normal 15-37 [facility] Comment on above: Performed By: #### C MP, LIPA, HSTROPN #### [facility] [address] [address] [address] Rj Miller Bilirubin [Mass/Vol] 0.4 mg/dL Normal 0.2-1.0 [facility] Comment on above: Performed By: #### C MP, LIPA, HSTROPN #### [facility] [address] [place] [address] Dr. Rj Miller Calcium [Mass/Vol] 8.9 mg/dL Normal 8.5-10.1 [facility] Comment on above: Performed By: #### C MP, LIPA, HSTROPN #### [facility] [address] [place] [address] Dr. Rj Miller Chloride [Moles/Vol] 103 mmol/L Normal 98-107 [facility] Comment on above: Performed By: #### C MP, LIPA, HSTROPN #### [facility] [address] [place] [address] Dr. Rj Miller CO2 [Moles/Vol] 26.0 mmol/L Normal 21.0-32.0 [facility] Comment on above: Performed By: #### C MP, LIPA, HSTROPN #### [facility] [address] [place] [address] Dr. Rj Miller Creatinine [Mass/Vol] 0.88 mg/dL Normal 0.70-1.30 [facility] Comment on above: Performed By: #### C MP, LIPA, HSTROPN #### [facility] [address] [address] [address] Rj Miller EGFR-AF AUSTRALIAN >60 Normal >=60 [facility] Comment on above: Performed By: #### C MP, LIPA, HSTROPN #### [facility] [address] [place] [address] Dr. Rj Miller EGFR-NON AF AUSTRALIAN >60 Normal >=60 [facility] Comment on above: Performed By: #### C MP, LIPA, HSTROPN #### [facility] [address] [address] [address] Rj Miller Globulin (S) [Mass/Vol] 3.8 g/dL Normal [facility] Comment on above: Performed By: #### C MP, LIPA, HSTROPN #### [facility] [address] [place] [address] Dr. Rj Miller Glucose [Mass/Vol] 116 mg/dL Critically high 74-106 [facility] Comment on above: Performed By: #### C MP, LIPA, HSTROPN #### [facility] [address] [place] [address] Dr. Rj Miller Potassium [Moles/Vol] 3.7 mmol/L Normal 3.5-5.1 [facility] Comment on above: Performed By: #### C MP, LIPA, HSTROPN #### [facility] [address] [place] [address] Dr. Rj Miller Protein [Mass/Vol] 7.6 g/dL Normal 6.4-8.2 [facility] Comment on above: Performed By: #### C MP, LIPA, HSTROPN #### [facility] [address] [place] [address] Dr. Rj Miller Sodium [Moles/Vol] 134 mmol/L Critically low 136-145 [facility] Comment on above: Performed By: #### C MP, LIPA, HSTROPN #### [facility] [address] [place] [address] Dr. Rj Miller Urea nitrogen [Mass/Vol] 13.0 mg/dL Normal 7.0-18.0 [facility] Comment on above: Performed By: #### C MP, LIPA, HSTROPN #### [facility] [address] [place] [address] Dr. Rj Miller Urea nitrogen/Creatinine [Mass ratio] 14.8 mg/mg Normal [facility] Comment on above: Performed By: #### C MP, LIPA, HSTROPN #### [facility] [address] [place], [place] [address] Dr. Rj Miller TROPONIN, HIGH SENSITIVITYon 09-24-2022 HSTROP 10.1 pg/mL Normal 4.0-76.1 [facility] Comment on above: Result Comment: CUT- OFF POINTS HAVE BEEN ESTABLISHED BASED ON THE FOURTH UNIVERSAL DEFINITIONS OF MYOCARDIAL INFARCTION. THE UPPER REFERENCE LIMIT (URL) OF TROPONIN, DEFINED THE 99TH PERCENTILE OF cTnI DISTRIBUTION IN A REFERENCE POPULATION, HAS BEEN CONFIRMED THE DECISION THRESHOLD FOR [place] DIAGNOSIS. Performed By: #### C WILLIAN STEVENSON, HSTROPN #### [facility] [place] [facility] [address] [address] [address] Rj Miller XR CSPINE 2_3 VIEWSon [...] by: JENNY TAPIA Date: 2022-09-24 07:20 Normal [facility] Basic Metabolic Panelon 04- Calcium [Mass/Vol] 8.7 mg/dL Normal 8.2-10.2 [facility] Comment on above: Performed By: #### B MP #### [facility] [address] [place] [address] [place] Chloride [Moles/Vol] 107 mmol/L Normal 95-114 [facility] Comment on above: Performed By: #### B MP #### [facility] [address] [id number] [place] CO2 [Moles/Vol] 23.3 mmol/L Normal 22.0-30.0 [facility] Comment on above: Performed By: #### B MP #### [address] Creatinine [Mass/Vol] 0.80 mg/dL Normal 0.64-1.27 [facility] Comment on above: Performed By: #### B MP #### [address] Creatinine Clr Calc Pharmacy 101.34 [facility] Comment on above: Result Comment: PERF ORMED BY: [place] [address] PATHOLOGIST BEAD PREPARER MARGO MINOR M.D. Performed By: #### B MP #### [address] Estimated GFR ( Emilie > 60 [facility] Comment on above: Result Comment: GFR estimated reference range: According to KDOQI guidelines, <60 ml/min/1.73m2 is sufficient to diagnose a patient with chronic kidney disease. Performed By: #### B MP #### [address] Estimated GFR (Non- Am > 60 [facility] Comment on above: Performed By: #### B MP #### [address] Glucose [Mass/Vol] 101 mg/dL High 70-100 [facility] Comment on above: Result Comment: [place] Glucose Reference Range is dependent on time and content of last meal. Glucose of more than 200 mg/dL in a nonstressed, ambulatory subject supports the diagnosis of Diabetes Mellitus. ADA recommended reference range Performed By: #### B MP #### [address] Potassium [Moles/Vol] 4.3 mmol/L Normal 3.5-5.1 [facility] Comment on above: Performed By: #### B MP #### [address] Sodium [Moles/Vol] 138 mmol/L Normal 136-146 [facility] Comment on above: Performed By: #### B MP #### [address] [place] [address] [place] Urea nitrogen [Mass/Vol] 13 mg/dL Normal 9-23 [facility] Comment on above: Performed By: #### B MP #### [facility] [address] Calculi, Urinaryon 1 Ca Oxalate Dihydrate 60 % Normal . [facility] Comment on above: Performed By: #### C ALCULI #### [facility] , Ca Oxalate Monohydrate 30 % Normal . [facility] Comment on above: Performed By: #### C ALCULI #### [facility] , Color (U) Moy Normal . [facility] Comment on above: Performed By: #### C ALCULI #### [facility] , Comment: Normal . [facility] Comment on above: Result Comment: Liz guidry questions regarding Calculi Analysis contact [facility] at: [phone]. Performed By: #### C ALCULI #### [facility] , Composition Normal . [facility] Comment on above: Result Comment: Perc entage (Represents the % composition) Performed By: #### C ALCULI #### [facility] , Disclaimer: Normal . [facility] Comment on above: Result Comment: This test was developed and its performance characteristics determined by [facility]. It has not been cleared or approved by the Food and Drug Administration. Performed at: [facility] [address] [place] [address] Dr Castillo, [place], [place] [id number] Children'S Entertainer: Anthony Grey MD, Phone: [phone] Performed By: #### C ALCULI #### [facility] , Hydroxyapatite 10 % Normal . [facility] Comment on above: Performed By: #### C ALCULI #### [facility] , Note Normal . [facility] Comment on above: Result Comment: Calc josafat report will follow via computer, mail or wood carver delivery. PERFORMED BY: [place] [address] PATHOLOGIST BEAD PREPARER MARGO MINOR M.D. Performed By: #### C ALCULI #### [facility] , Photo Normal . [facility] Comment on above: Result Comment: Phot ograph will follow under a separate cover Performed By: #### C ALCULI #### [facility] , Size 6x6 Normal . [facility] Comment on above: Result Comment: Mult iple pieces received. Dimensions of the largest piece reported. Performed By: #### C ALCULI #### [facility] , Source Ureter Normal . [facility] Comment on above: Performed By: #### C ALCULI #### [facility] , Weight 110 Normal . [facility] Comment on above: Performed By: #### C ALCULI #### [facility] , ECG 12 lead ECGon 02-27-2021 ECG 12 lead ECG [facility] [place] [address] Electrocardiograph Report Signed Patient: Jam Toscano MR#: [id number] : 1965 Acct:[id number] Age/Sex: 55 / M ADM Date: 02/27/21 Loc: [place] Room: Type: [facility] Attending Dr: Rigo Gonzalez Jr, MD [...] DO 02/27/21 1110 Signed By: 02/27/21 1225 [facility] Mikey 02-27-2021 L ----- Specimen: Received: 02/27/21 Status: EMELI Flores Num: [id number] Spec Type: Surgical Subm Dr: Rigo Gonzalez Jr, MD, FACS Tissues: A Urinary Calculus (URETHRAL STONE) Procedures: Level 1 Gross Patient Age/Sex Location Account Attending Physician Jam Toscano/Griselda [place] [id number] Rigo Gonzalez Jr, MD, FACS SPEC NUM: [id number] RECD: 02/27/21 STATUS: EMELI FLORES NUM: [id number] RADHA: 02/27/21 DR: Rigo Gonzalez Jr, MD, FACS ENTERED: 02/27/[address] [facility] DR: SPEC TYPE: Surgical DEPT: S ORDERED: Level 1 [...] Microscopic Description Gross examination only CPT Codes 26460 Specimen: [id number] Received: 02/27/21 Status: EMELI Flores Num: [id number] Spec Type: Surgical Subm Dr: Rigo Gonzalez Jr, MD, FACS Tissues: A Urinary Calculus (URETHRAL STONE) Procedures: Level 1 Gross Patient: Jam Toscano [id number] (Continued) Signed (signature on file) Silvestre Poon MD 02/28/21 1428 Normal [facility] SARS-CoV-2 (COVID-19) RNA BERNARDO+probe Ql (Unsp spec) Negative Normal Negative [facility] Comment on above: Order Comment: Healt hcare Worker?: N Result Comment: Refe rence: Negative Testing for SARS-CoV-2 by RT-PCR This test was developed and its performance characteristics determined by [employer] ([employer]) and validated at the [facility]. This test has not been FDA [...] is terminated or revoked sooner. PERFORMED BY: [facility] [place] [address] PATHOLOGIST BEAD PREPARER MARGO MINOR M.D. Performed By: #### C OVID-19 [facility] #### [facility] [address] [id number] [facility] COVID-19 Positive/Negativeon 02-25-2021 COVID-19 Positive/Negative Negative Negative [facility] Comment on above: Reference: NegativeT esting for SARS-CoV-2 by RT-PCRThis test was developed and its performance characteristics determined by [employer] ([employer]) and validated at the [facility]. This test has not been FDA [...] Otheron 02-25-2021 Coronavirus 2019 PCR Interp N/A [facility] XR ANKLE GENERAL 3V AP/LAT/O BL LTon 02-20-2021 [facility] DXA-AXIAL SKELETONon [facility] Vital Signs Date Time Vital Sign Value Performing Clinician Manai lity 02-14-2025 07:10-0400 Body mass index (BMI) [Ratio] 28.12 kg/m2 Darrian Dubon MD Work Phone: [facility] 02-14-2025 07:10-0400 Body weight 79 kg Darrian Dubon MD Work Phone: [facility] 02-14-2025 07:10-0400 Diastolic blood pressure 74 mm[Hg] Darrian Dubon MD Work Phone: [facility] 02-14-2025 07:10-0400 Heart rate 66 /min Darrian Dubon MD Work Phone: [facility] 02-14-2025 07:10-0400 Systolic blood pressure 134 mm[Hg] Darrian Dubon MD Work Phone: [facility] 10-05-2024 07:15-0500 Body mass index (BMI) [Ratio] 27.66 kg/m2 Darrian Dubon MD Work Phone: [facility] 10-05-2024 07:15-0500 Body weight 77.7 kg Darrian Dubon MD Work Phone: [facility] 10-05-2024 07:15-0500 Diastolic blood pressure 76 mm[Hg] Darrian Dubon MD Work Phone: [facility] 10-05-2024 07:15-0500 Heart rate 66 /min Darrian Dubon MD Work Phone: [facility] 10-05-2024 07:15-0500 Systolic blood pressure 128 mm[Hg] Darrian Dubon MD Work Phone: [facility] 05-09-2024 10:05-0400 Diastolic blood pressure 78 mm[Hg] Rhedexter Maria De Jesus Work Phone: [facility] 05-09-2024 10:05-0400 Heart rate 78 /min Rheu Maria De Jesus Work Phone: [facility] 05-09-2024 10:05-0400 Systolic blood pressure 121 mm[Hg] Rheu Maria De Jesus Work Phone: [facility] 05-09-2024 09:08-0400 Body mass index (BMI) [Ratio] 27.16 kg/m2 Nidia Weston APRN.FIELD SALES REPRESENTATIVE Work Phone: [facility] 05-09-2024 09:08-0400 Body temperature 98.4 [degF] Nidia Wetson APRN.FIELD SALES REPRESENTATIVE Work Phone: [facility] 05-09-2024 09:08-0400 Body weight 76.3 kg Nidia Weston APRN.FIELD SALES REPRESENTATIVE Work Phone: [facility] 05-09-2024 09:08-0400 Diastolic blood pressure 79 mm[Hg] Nidia Weston APRN.FIELD SALES REPRESENTATIVE Work Phone: [facility] 05-09-2024 09:08-0400 Heart rate 89 /min Nidia Weston APRN.FIELD SALES REPRESENTATIVE Work Phone: [facility] 05-09-2024 09:08-0400 SaO2% (BldA) [Mass fraction] 97 % Nidia Weston APRN.FIELD SALES REPRESENTATIVE Work Phone: [facility] 05-09-2024 09:08-0400 Systolic blood pressure 118 mm[Hg] Nidia Weston APRN.FIELD SALES REPRESENTATIVE Work Phone: [facility] 03-14-2024 09:17-0400 Body mass index (BMI) [Ratio] 26.66 kg/m2 Nidia Weston APRN.FIELD SALES REPRESENTATIVE Work Phone: [facility] 03-14-2024 09:17-0400 Body weight 74.9 kg Nidia Weston APRN.FIELD SALES REPRESENTATIVE Work Phone: [facility] 03-14-2024 09:17-0400 Diastolic blood pressure 83 mm[Hg] Nidia Weston APRN.FIELD SALES REPRESENTATIVE Work Phone: [facility] 03-14-2024 09:17-0400 Heart rate 97 /min Nidia Weston APRN.FIELD SALES REPRESENTATIVE Work Phone: [facility] 03-14-2024 09:17-0400 SaO2% (BldA) [Mass fraction] 97 % Nidia Weston APRN.FIELD SALES REPRESENTATIVE Work Phone: [facility] 03-14-2024 09:17-0400 Systolic blood pressure 121 mm[Hg] Nidia Weston APRN.FIELD SALES REPRESENTATIVE Work Phone: [facility] Encounters Encounter Date Encounter Type Care Provider Facility Start: 05-22-2025 ambulatory Luis Antonio García Facility:[facility] Start: 03-29-2025 End: 03-29-2025 Christopher Veliz DO Work Phone: [facility] Start: 03-29-2025 End: 03-29-2025 Bamboo flowsheet Jr. Bradly Watters Stepseb DO Work Phone: [facility] Start: 03-29-2025 End: 03-29-2025 Office outpatient visit 15 minutes JrBrittney Watters Keren DO Work Phone: [facility] Comment on above: Pain of right hip (P rimary Dx); Primary osteoarthritis of right hip; Arthritis of knee, left; History of total hip replacement, right Start: 03-29-2025 End: 03-29-2025 ambulatory BRADLY GARCIA Not Available Start: 02-14-2025 End: 02-14-2025 ambulatory JOSE L LACKEY Facility:[facility] Start: 02-14-2025 End: 02-14-2025 Office outpatient visit 25 minutes Darrian Dubon [...] on health promotion and disease prevention Start: 12-14-2024 End: 12-14-2024 ambulatory Luis Antonio García Facility:[facility] Start: 11-21-2024 End: 11-23-2024 Telephone encounter Darrian Dubon MD Work Phone: Rheumatology Comment on above: Patient Update Start: 11-21-2024 End: 11-21-2024 ambulatory aMrcin RAMÍREZ Facility[facility] Start: 11-21-2024 End: 11-21-2024 ambulatory Marcin RAMÍREZ Facility:[facility] Start: 10-05-2024 End: 10-05-2024 ambulatory JOSE L LACKEY Facility:[facility] Start: 10-05-2024 End: 10-05-2024 Office outpatient [...] 06-13-2024 End: 06-13-2024 ambulatory Salmon Talal Sarmini Facility:[facility] Start: 06-03-2024 End: 06-03-2024 ambulatory Salmon Talal [facility] Facility:[facility] Start: 05-30-2024 End: 05-30-2024 [facility] Start: 05-09-2024 End: 05-09-2024 ambulatory Geoffrey Ellis 2 Maria De Jesus Work Phone: Infusion Comment on above: Other osteoporosis w ithout current pathological fracture (Primary Dx) Start: 05-09-2024 End: 05-09-2024 Patient encounter procedure Nidia Weston APRN.FIELD SALES REPRESENTATIVE Work Phone: Rheumatology Comment on above: 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); Vitamin D deficiency; Other osteoporosis without current pathological fracture Start: 05-03-2024 Telephone encounter Ben slater MD Work Phone: Rheumatology Comment on above: Results (Labs) Start: 05-03-2024 End: 05-03-2024 ambulatory DAMION MABRY Not Available Start: 04-11-2024 Telephone encounter Nidia retana APRN.FIELD SALES REPRESENTATIVE Work Phone: Rheumatology Comment on above: Patient Update Start: 04-05-2024 End: 04-05-2024 ambulatory DAMION MABRY Not Available Start: 03-14-2024 End: 03-14-2024 Subsequent hospital visit by physician Job [facility] Comment on above: Rheumatoid arthritis 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) [M05.79] Start: 03-14-2024 End: 03-14-2024 ambulatory NIDIA WESTON Facility:[facility] Start: 03-14-2024 End: 03-14-2024 Patient encounter procedure Nidia Weston APRN.CNP Work Phone: Rheumatology Comment on above: 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); Vitamin D deficiency; Other osteoporosis without current pathological fracture; Encounter for medication review and counseling Start: 03-04-2024 End: 03-04-2024 [facility] Start: 03-02-2024 End: 03-02-2024 ambulatory [facility] Facility:[facility] Start: 02-26-2024 End: 02-26-2024 ambulatory [facility] Facility:[facility] Start: 02-11-2024 Telephone encounter Nidia retana APRN.JOSE Work Phone: Rheumatology Start: 12-11-2023 End: 12-11-2023 ambulatory [facility] Facility:[facility] Start: 11-27-2023 End: 11-27-2023 Emergency department patient visit Kavon Johnson Facility:[facility] Start: 11-04-2023 End: 11-04-2023 Emergency department patient visit Kavon Johnson Facility:[facility] Start: 10-23-2023 End: 10-23-2023 Emergency department patient visit Zoila Germainedyta Facility:[facility] Start: 05-04-2023 Telephone encounter Nidia retana APRN.JOSE Work Phone: Rheumatology Comment on above: Patient Update Start: 05-04-2023 End: 05-04-2023 ambulatory Nidia Weston APRN.JOSE Work Phone: Rheumatology Comment on above: Rheumatoid [...] 05-04-2023 Telemedicine consultation with patient Nidia Weston APRN.CNP Work Phone: [facility] Start: 03-02-2023 End: 03-02-2023 ambulatory Nidia Weston ADEOLA.FIELD SALES REPRESENTATIVE Work Phone: Rheumatology Comment on above: 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); Encounter to discuss test results; Counseling on health promotion and disease prevention; Ulcerative pancolitis (HCC); Other osteoporosis without current pathological fracture Start: 03-02-2023 End: 03-02-2023 Telemedicine consultation with patient Nidia Weston APRN.FIELD SALES REPRESENTATIVE Work Phone: [facility] Start: 02-11-2023 End: 02-12-[address] JOSE L LACKEY . Facility:[facility] Start: 01-14-2023 Telephone encounter Nidia retana ADEOLA.FIELD SALES REPRESENTATIVE Work Phone: Rheumatology Comment on above: Outside Lab Results (Vit D ) Start: 12-29-2022 End: 12-29-2022 ambulatory Nidia Weston ADEOLA.FIELD SALES REPRESENTATIVE Work Phone: Rheumatology Comment on above: 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); Vitamin D deficiency; Encounter to discuss test results; Encounter for medication review and counseling; Counseling on health promotion and disease prevention; Other osteoporosis without current pathological fracture Start: 12-29-2022 End: 12-29-2022 Telemedicine consultation with patient Nidia Weston APRN.FIELD SALES REPRESENTATIVE Work Phone: [facility] Start: 11-24-2022 End: 11-25-[address] JOSE L LACKEY . Facility:[facility] Start: 11-06-2022 End: 11-07-[address] JOSE L LACKEY . Facility:[facility] Start: 09-24-2022 End: 09-24-[address] JOSE L LACKEY . Facility:[facility] Start: 09-23-2022 End: 09-23-2022 Subsequent hospital visit by physician Bone Density [facility] Maria De Jesus Radiology Comment on above: Other osteoporosis w ithout current pathological fracture [M81.8] Start: 02-10-2022 Telephone encounter Darrian Florez MD Work Phone: Rheumatology Comment on above: Results Start: 02-25-2021 End: 02-25-2021 Patient encounter procedure Rigo Gonzalez -Pre-Surgical Testing Start: 02-20-2021 End: 02-20-2021 Subsequent hospital visit by physician Xr [facility] Comment on above: Seropositive rheumat oid arthritis (HCC) [M05.9] Start: 08-22-2020 End: 08-22-2020 Subsequent hospital visit by physician Bone Density [facility] Maria De Jesus [facility] Comment on above: Rheumatoid arthritis 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) [M05.79] Procedures Date Procedure Procedure Detail Performing Clinician Start: 03-29-2025 Radex hip unilateral with pelvis 2-3 views Jr. Bradly Veliz DO Work Phone: Start: 03-14-2024 Radex hand minimum 3 views Nidia Weston APRN.FIELD SALES REPRESENTATIVE Work Phone: Start: 01-12-2023 VITAMIN D 25 HYDROXY Am y Griselda Weston APRN.FIELD SALES REPRESENTATIVE Work Phone: Start: 09-23-2022 Dxa bone density [...] Start: 12-01-2026 Diabetes Screening Diabetes Screenin g [facility] Start: 03-28-2026 End: 03-28-2026 Patient encounter procedure 03/28/2026 10:00 AM EDT Office Visit [facility] [address] [place] [address] Jr. Bradly Veliz, DO [address] [place] [address] [facility] Start: 10-31-2025 End: 10-31-2025 Patient encounter procedure 10/31/2025 10:00 AM EST Office Visit [facility] [address] [facility] [place] [address] Darrian Dubon MD [address] [place] [address] Please also offer another apt later in 2024 or early 2025 (please use 30 min slot) for RA/OP Rheumatology Comment on above: Please also offer an other apt later in 2024 or early 2025 (please use 30 min slot) for RA/OP Start: 07-17-2025 Influenza vaccination Influenz a Vaccine (Season Ended) [facility] Start: 06-06-2025 End: 06-06-2025 Patient encounter procedure Radiology Comment on above: Seropositive rheumat oid arthritis (HCC) [M05.9] Return for May 2025 for RA and OP and review of DXA. Start: 05-23-2025 End: 05-23-2025 ambulatory 05/23/2025 8:[address] EDT Results [address] [facility] [address] [place] [address] [place] [address] [facility] Comment on above: labs Start: 05-16-2025 End: 08-15-2025 25-hydroxyvitamin D3 [Mass/volume] in Serum or Plasma VITAMIN D 25 HYDROXY Lab Routine Seropositive rheumatoid arthritis (HCC) Ulcerative pancolitis (HCC) Other osteoporosis without current pathological fracture History of bisphosphonate therapy Expected: 05/16/2025, Expires: 08/15/2025 [facility] Comment on above: Expected: 05/16/2025 , Expires: 08/15/2025 Start: 05-16-2025 End: 08-15-2025 C reactive protein [Mass/volume] in Serum or Plasma C-REACTIVE PROTEIN Lab Routine Seropositive rheumatoid arthritis (HCC) Ulcerative pancolitis (HCC) Expected: 05/16/2025, Expires: 08/15/2025 [facility] Comment on above: Expected: 05/16/2025 , Expires: 08/15/2025 Start: 05-16-2025 End: 08-15-2025 CBC W Auto Differential panel - Blood COMPLETE BLOOD COUNT AND DIFFERENTIAL Lab Routine Seropositive rheumatoid arthritis (HCC) Rheumatoid arthritis 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) On sulfasalazine therapy Ulcerative pancolitis (HCC) Expected: 05/16/2025, Expires: 08/15/2025 [facility] Work Phone: Comment on above: Expected: 05/16/2025 , Expires: 08/15/2025 Start: 05-16-2025 End: 08-15-2025 Collagen crosslinked C-telopeptide [Mass/volume] in Serum or Plasma C TELOPEPTIDE, BETA Lab Routine Other osteoporosis without current pathological fracture History of bisphosphonate therapy Expected: 05/16/2025, Expires: 08/15/2025 [facility] Comment on above: Expected: 05/16/2025 , Expires: 08/15/2025 Start: 05-16-2025 End: 08-15-2025 Renal function 2000 panel - Serum or Plasma RENAL FUNCTION PANEL Lab Routine Other osteoporosis without current pathological fracture History of bisphosphonate therapy Expected: 05/16/2025, Expires: 08/15/2025 [facility] Comment on above: Expected: 05/16/2025 , Expires: 08/15/2025 Start: 05-03-2025 End: 05-03-2025 Patient encounter procedure 05/03/2025 10:00 AM EDT Office Visit [facility] [address] [place] [id number] Jr. Bradly Veliz, DO [address] [facility] [address] [place] [address] [facility] Start: 03-29-2025 End: 03-29-2025 Patient encounter procedure 03/29/2025 10:00 AM EDT Office Visit [facility] [address] [place] [address] Jr. Bradly Veliz, DO [address] [facility] [address] [place] [address] Arrived [facility] Comment on above: Arrived Start: 02-14-2025 End: 02-14-2025 Patient encounter procedure 02/14/2025 7:20 AM EDT Office Visit Rheumatology [address] [place] [address] Darrian Dubon MD [address] [place] [address] Dubon Rheumatology Comment on above: future with dr. Vince melton Start: 10-05-2024 End: 10-05-2024 Patient encounter procedure 10/05/2024 7:20 AM EST Office Visit Rheumatology [address] [place] [address] Darrian Dubon MD [address] [place] [address] RA Rheumatology Comment on above: RA Start: 09-16-2024 End: 12-16-2024 25-hydroxyvitamin D3 [Mass/volume] in Serum or Plasma VITAMIN D 25 HYDROXY Lab Routine Vitamin D deficiency Other osteoporosis without current pathological fracture Expected: 09/16/2024 (Approximate), Expires: 12/16/2024 [facility] Comment on above: Expected: 09/16/2024 (Approximate), Expires: 12/16/2024 Start: 09-16-2024 End: 12-16-2024 C reactive protein [Mass/volume] in Serum or Plasma C-REACTIVE PROTEIN Lab Routine Rheumatoid arthritis 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) Expected: 09/16/2024 (Approximate), Expires: 12/16/2024 [facility] Work Phone: Comment on above: Expected: 09/16/2024 (Approximate), Expires: 12/16/2024 Start: 09-16-2024 End: 12-16-2024 Erythrocyte sedimentation rate SEDIMENTATION RATE, WESTERGREN Lab Routine Rheumatoid arthritis 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) Expected: 09/16/2024 (Approximate), Expires: 12/16/2024 [facility] Comment on above: Expected: 09/16/2024 (Approximate), Expires: 12/16/2024 Start: 09-16-2024 End: 12-16-2024 Renal function 2000 panel - Serum or Plasma RENAL FUNCTION PANEL Lab Routine Rheumatoid arthritis 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) Other osteoporosis without current pathological fracture Expected: 09/16/2024 (Approximate), Expires: 12/16/2024 [facility] Comment on above: Expected: 09/16/2024 (Approximate), Expires: 12/16/2024 Start: 07-17-2024 Influenza vaccination [facility] Start: 05-09-2024 End: 05-09-2024 ambulatory 05/09/2024 9:30 AM EDT Infusion [facility] Infusion [address] [place] [address] Return labs in 1 month, for reclast and ov in 1-2 months after labs Infusion Comment on above: Return labs in 1 mon , for reclast and ov in 1-2 months after labs Start: 05-09-2024 End: 05-09-2024 Patient encounter procedure 05/09/2024 9:00 AM EDT Office Visit Rheumatology [address] [place] [address] Nidia Weston, FUNCTIONAL ARCHITECT.FIELD SALES REPRESENTATIVE [address] [place] [address] Return labs in 1 month, for reclast and ov in 1-2 months after labs Rheumatology Comment on above: Return labs in 1 mon , for reclast and ov in 1-2 months after labs Start: 2024 RSV Vaccine (1 - 1-d ose 60+ series) RSV Vaccine (1 - 1-dose 60+ series) [facility] Start: 2024 RSV Vaccine (1 - Ris k 60-74 years 1-dose series) RSV Vaccine (1 - Risk 60-74 years 1-dose series) [facility] Start: 04-13-2024 End: 07-13-2024 25-hydroxyvitamin D3 [Mass/volume] in Serum or Plasma VITAMIN D 25 HYDROXY Lab Routine Rheumatoid arthritis 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) Vitamin D deficiency Expected: 04/13/2024 (Approximate), Expires: 07/13/2024 [facility] Comment on above: Expected: 04/13/2024 (Approximate), Expires: 07/13/2024 Start: 04-13-2024 End: 07-13-2024 C reactive protein [Mass/volume] in Serum or Plasma C-REACTIVE PROTEIN Lab Routine Rheumatoid arthritis 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) Expected: 04/13/2024 (Approximate), Expires: 07/13/2024 [facility] Comment on above: Expected: 04/13/2024 (Approximate), Expires: 07/13/2024 Start: 04-13-2024 End: 07-13-2024 Erythrocyte sedimentation rate SEDIMENTATION RATE, WESTERGREN Lab Routine Rheumatoid arthritis 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) Expected: 04/13/2024 (Approximate), Expires: 07/13/2024 [facility] Comment on above: Expected: 04/13/2024 (Approximate), Expires: 07/13/2024 Start: 04-13-2024 End: 07-13-2024 Renal function 2000 panel - Serum or Plasma RENAL FUNCTION PANEL Lab Routine Rheumatoid arthritis 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) Expected: 04/13/2024 (Approximate), Expires: 07/13/2024 [facility] Work Phone: Comment on above: Expected: 04/13/2024 (Approximate), Expires: 07/13/2024 Start: 04-13-2024 End: 04-13-2025 XR Hand - bilateral PA and Lateral and Oblique XR HAND GENERAL 3V PA/LAT/OBL BILATERAL Radiology Routine Rheumatoid arthritis 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) Expected: 04/13/2024 (Approximate), Expires: 04/13/2025 [facility] Comment on above: Expected: 04/13/2024 (Approximate), Expires: 04/13/2025 Start: 11-16-2023 Behavioral Health Screening Behavioral Health Screening [facility] Start: 11-16-2023 Depression Assessment Depression Ass essment [facility] Start: 08-22-2023 DIABETES SCREEN DIABETES SCREEN [facility] Start: 07-17-2023 Influenza vaccination [facility] Start: 07-04-2023 End: 09-03-2023 25-hydroxyvitamin D3 [Mass/volume] in Serum or Plasma VITAMIN D 25 HYDROXY Lab Routine Other osteoporosis without current pathological fracture Expected: 07/04/2023 (Approximate), Expires: 09/03/2023 [facility] Work Phone: Comment on above: Expected: 07/04/2023 (Approximate), Expires: 09/03/2023 Start: 07-04-2023 End: 09-03-2023 MONOCLONAL PROT UR W/INTERP MONOCLONAL PROT UR W/INTERP Lab Routine Elevated serum immunoglobulin free light chain level Expected: 07/04/2023 (Approximate), Expires: 09/03/2023 [facility] Work Phone: Comment on above: Expected: 07/04/2023 (Approximate), Expires: 09/03/2023 Start: 07-04-2023 End: 09-03-2023 Renal function 2000 panel - Serum or Plasma RENAL FUNCTION PANEL Lab Routine Other osteoporosis without current pathological fracture Expected: 07/04/2023 (Approximate), Expires: 09/03/2023 [facility] Work Phone: Comment on above: Expected: 07/04/2023 (Approximate), Expires: 09/03/2023 Start: 12-29-2022 End: 02-28-2023 25-hydroxyvitamin D3 [Mass/volume] in Serum or Plasma VITAMIN D 25 HYDROXY Lab Routine Vitamin D deficiency Expected: 12/29/2022, Expires: 02/28/2023 [facility] Work Phone: Comment on above: Expected: 12/29/2022 , Expires: 02/28/2023 Start: 11-16-2022 DEPRESSION ASSESSMENT DEPRESSION ASS ESSMENT [facility] Start: 07-17-2022 Influenza vaccination INFLUENZA (#1) [facility] Start: 07-17-2021 Influenza vaccination INFLUENZA (#1) [facility] Start: 04-15-2021 COVID-19 VACCINE (2 - Starr risk 3-dose series) COVID-19 VACCINE (2 - Starr risk 3-dose series) [facility] Start: 04-15-2021 COVID-19 VACCINE (2 - Starr risk series) COVID-19 VACCINE (2 - Starr risk series) [facility] Start: 05-03-2020 PNEUMOCOCCAL (3 - PPSV23 if available, else PCV20) PNEUMOCOCCAL (3 - PPSV23 if available, else PCV20) [facility] Start: 05-03-2020 PNEUMOCOCCAL (3 - PPSV23 or PCV20) PNEUMOCOCCAL (3 - PPSV23 or PCV20) [facility] Start: 05-03-2020 Pneumococcal vaccination Pneumococcal Vaccine (3 of 3 - PPSV23 or PCV20) [facility] Start: 05-03-2020 Pneumococcal Vaccine : 50+ (3 of 3 - PPSV23, PCV20 or PCV21) Pneumococcal Vaccine: 50+ (3 of 3 - PPSV23, PCV20 or PCV21) [facility] Start: 02-11-2020 Adult depression screening assessment DEPRESSION SCREENING [facility] Start: 2019 PROSTATE CANCER SCREENING DISCUSSION PROSTATE CANCER SCREENING DISCUSSION [facility] Start: 2019 Prostate specific antigen measurement Prostate Cancer Screening Discussion [facility] Start: 2014 SHINGRIX VACCINE (1 of 2) SHINGRIX VACCINE (1 of 2) [facility] Start: 2009 COLOGUARD (FIT-DNA) COLOGUARD (FIT-D NA) [facility] Start: 2009 Colonoscopy COLONOSCOPY [facility] Start: 2009 COLORECTAL CANCER SCREENING COLORECTAL CANCER SCREENING [facility] Start: [address] COLONOGRAPHY [facility] Start: 2009 FECAL OCCULT BLOOD FECAL OCCULT BLOO D [facility] Start: 2009 Screening for malign ant neoplasm of colon [facility] Start: 2009 SIGMOIDOSCOPY SIGMOIDOSCOPY [facility] Start: 1999 Lipid panel Lipid Screening [facility] Start: 1999 LIPID SCREEN LIPID SCREEN [facility] Start: 1983 SHINGRIX VACCINE (1 of 2) SHINGRIX VACCINE (1 of 2) [facility] Start: 1983 Urine microalbumin profile [facility] Start: 1982 Anxiety Screening Anxiety Screening [facility] Start: 1982 Depression Screening Depression Scre ening [facility] Start: 1982 HIV SCREENING HIV SCREENING [facility] Start: 1982 HIV screening HIV Screening [facility] Start: 1982 MMR Vaccine (1 of 2 - Risk 2-dose series) MMR Vaccine (1 of 2 - Risk 2-dose series) [facility] Start: 1974 Meningococcal B Vaccine: Consider Based On Risk (1 of 4 - Increased Risk) Meningococcal B Vaccine: Consider Based On Risk (1 of 4 - Increased Risk) [facility] Start: 1964 Screening for malign ant neoplasm of colon [facility] End: 11-04-2025 BD DXA TRABECULAR BONE SCORE (TBS) BD DXA TRABECULAR BONE SCORE (TBS) Radiology Routine Seropositive rheumatoid arthritis (HCC) Ulcerative pancolitis (HCC) Other osteoporosis without current pathological fracture History of bisphosphonate therapy 1 Occurrences starting 10/05/2024 until 11/04/2025 [facility] Comment on above: 1 Occurrences starti ng 10/05/2024 until 11/04/2025 End: 11-04-2025 DXA Skeletal system.axial Views for bone density DXA-AXIAL SKELETON Radiology Routine Seropositive rheumatoid arthritis (HCC) Ulcerative pancolitis (HCC) Other osteoporosis without current pathological fracture History of bisphosphonate therapy 1 Occurrences starting 10/05/2024 until 11/04/2025 [facility] Comment on above: 1 Occurrences starti ng 10/05/2024 until 11/04/2025 [facility] Immunizations Immunization Date Immunization Notes Care Provider Feng diaz 06-09-2022 zoster vaccine recombinant Nidia Silva FUNCTIONAL ARCHITECT.FIELD SALES REPRESENTATIVE Work Phone: [facility] 03-17-2022 zoster vaccine recombinant Nidia Silva FUNCTIONAL ARCHITECT.FIELD SALES REPRESENTATIVE Work Phone: [facility] 09-27-2020 Influenza, injectabl e, Madin Catlett Canine Kidney, preservative free, quadrivalent Nidia Silva FUNCTIONAL ARCHITECT.FIELD SALES REPRESENTATIVE Work Phone: [facility] 09-27-2020 influenza virus vacc ine, unspecified formulation Nidia Silva FUNCTIONAL ARCHITECT.FIELD SALES REPRESENTATIVE Work Phone: [facility] 10-28-2019 Influenza, injectabl e, Madin Catlett Canine Kidney, quadrivalent with preservative Darrian Dubon MD Work Phone: [facility] 08-29-2019 influenza, injectabl e, quadrivalent, preservative free Nidia Silva FUNCTIONAL ARCHITECT.FIELD SALES REPRESENTATIVE Work Phone: [facility] 08-15-2016 influenza, injectabl e, quadrivalent, preservative free Darrian Dubon MD Work Phone: [facility] 12-08-2015 hepatitis A and hepa titis B vaccine Darrian Dubon MD Work Phone: [facility] 11-01-2015 pneumococcal conjuga te vaccine, 13 valent Darrian Dubon MD Work Phone: [facility] 07-31-2015 influenza, seasonal, injectable, preservative free Darrian Dubon MD Work Phone: [facility] 05-31-2015 hepatitis A and hepa titis B vaccine Darrian Dubon MD Work Phone: [facility] 05-03-2015 hepatitis A and hepa titis B vaccine Darrian Dubon MD Work Phone: [facility] 05-03-2015 pneumococcal polysaccharide vaccine, 23 valent Darrian Dubon MD Work Phone: [facility] Payers Date Payer Category Payer Medicare DEVOTED MEDICARE [employer] HE[employer] [id number] 2021-Present [phone] [address] MARYLOU RONQUILLO [address] [facility] [id number] 2021 Medicare (Managed Care) [facility] [id number] 5 2021 [facility] Health [facility] [id number] .[id number] 2021 Unknown [id number] 2011 Medicare [id number] .[id number] 1964 Unknown [id number] 2.16840.1.271882.3.579 .2 1964 Unknown [id number] 2.16.840.1.448356.3.579 .2.59 1964 Unknown [id number] 2.16.840.1.053068.3.579 .259 1964 Unknown [id number] 2.16840.1.203088.3.579 .259 1964 Unknown [id number] 2.16.840.1.734384.3.579 .2 1964 Unknown [id number] 2.16.840.1.001402.3.579 .2.72 1964 Unknown [id number] 2.16.840.1.348616.3.579 .272 1964 Unknown [id number] 2.16.840.1.904670.3.579 .2.72 1964 Unknown [id number] 2.16.840.1.487386.3.579 .2 1964 Unknown [id number] 2.16.840.1.070258.3.579 .272 1964 Unknown [id number] 2.16.840.1.097157.3.579 .2 1964 Unknown [id number] 2.16.840.1.649538.3.579 .2 1964 Unknown [id number] 2.16.840.1.190409.3.579 .2 1964 Unknown [id number] 2.16.840.1.494392.3.579 .2 1964 Unknown [id number] .16.840.1.755707.3.579 .2 1964 Unknown [id number] .16.840.1.133241.3.579 .2 1964 Unknown [id number] ..840.1.915317.3.579 .2 1964 Unknown [id number] 2..840.1.100613.3.579 .2 1964 Unknown [id number] .840.1.841433.3.579 .2 1964 Unknown [id number] .840.1.213729.3.579 .2 1964 Unknown [id number] .840.1.705465.3.579 .2 1964 Unknown [id number] .840.1.870340.3.579 .2 1964 Unknown [id number] .840.1.911320.3.579 .2 1964 Unknown [id number] ..840.1.559010.3.579 .2 1964 Unknown [id number] 2.840.1.214138.3.579 .2 1964 Unknown [id number] 2.16.840.1.017755.3.579 .2.1259 Private Health Insurance Self Pay [id number] Self-pay Self Pay [id number] Social History Date Type Detail Facility Tobacco smoking stat us [facility] Unknown if ever smoked [facility] Start: 1965 Sex Assigned At Male [facility] Start: 01-24-2020 End: 04-21-2023 Tobacco smoking status NHIS Ex-smoker [facility] Start: 01-24-2020 End: 12-01-2023 Tobacco use and exposure Smokeless tobacco non-user [facility] Start: 02-20-2021 End: 05-09-2024 Alcohol intake Lifetime non-drinker (finding) [facility] Start: 01-24-2020 History SDOH Alcohol Frequency 1 [facility] Start: 01-24-2020 End: 12-01-2023 Tobacco Comment quit in 2011 [facility] Start: 1965 Sex Assigned At Not on file [facility] Start: 01-19-2022 End: 01-29-2022 Exposure to SARS-CoV-2 (event) Unable to assess [facility] End: 11-16-2011 History of tobacco use Current smoker [facility] Start: 01-24-2020 End: 03-29-2025 History of Social function [facility] Start: 01-24-2020 End: 03-29-2025 Alcohol Use Disorder Identification Test - Consumption [AUDIT-C] [facility] How often to you hav e a drink containing alcohol? Never [facility] Average Number of Drinks Not on file [facility] Start: 07-23-2020 End: 02-20-2021 Exposure to SARS-CoV-2 (event) Not sure [facility] End: 11-16-2011 History of tobacco use Cigarette Smoker [facility] Start: 04-21-2023 Tobacco use and exposure Former smokeless tobacco user [facility] Start: 06-16-2023 End: 03-29-2025 Alcoholic beverage intake Ex-drinker (finding) [facility] Start: 04-06-2023 Alcohol Comment Caffeine: more than 4 cups per day [facility] Goals Date Patient Goal Desired Activity /State Clinical Notes 08-22-2020 to 03-29-2025 Jr. Bradly Veliz, - 03/29/2025 10:00 AM EDTPatient InstructionsAl- Darrian Valente MD - 02/14/2025 7:20 AM EDTTelephone Encounter - Darrian Dubon MD - 11/23/2024 12:36 PM EST Note Date & Type Note Facility 03-29-2025 History of Present illness Narrative Images from the original note were not included. HISTORY OF PRESENT ILLNESS: EST PT Jam Toscano is an 59 y.o. @ male. (EST PT) (LAST APPT W/ DR. MABRY) - YEARLY RECHECK (R) HIP S/P (R) DOUG 09/19/11 (~13 YRS, 6 MONTHS) XRAY TODAY, 03/29/25 IN EPIC XRAY 04/05/24 IN EPIC XRAY 03/31/23, 03/18/22, 03/08/21 IN EXA MRI MDP / PREDNISONE NO PT NO PAIN MGMT PRESENTS WALKING WITHOUT ASSISTANCE. ADMITS JOHN HORSE SENSATION WITH DRIVING INTERMITTENTLY. DENIES PAIN OTHERWISE. DENIES N/T. DENIES STIFFNESS / TIGHTNESS. FULL ROM. GOOD STRENGTH. ACTIVE WITH LEG EXTENSIONS AT THE GYM. NO PAIN MEDS. ALLERGIES: Allergies Allergen Reactions Cholestatin Unknown HOME MEDICATIONS: Current Outpatient Medications Medication Instructions atorvastatin (LIPITOR) 20 mg, Oral, Every 24 hours cholecalciferol (VITAMIN D-3) 5,000 Units, Oral, Daily RT dicyclomine (Bentyl) 10 MG capsule TAKE 1 CAPSULE BY MOUTH 4 TIMES A DAY Entyvio 300 MG injection ezetimibe (ZETIA) 10 mg, Oral, Daily ferrous sulfate 325 mg, Oral, 3 times daily with meals, Do not crush, chew, or split. folic acid (FOLVITE) 1 mg, Oral, Every 24 hours lisinopril 20 MG tablet Every 24 hours mesalamine (Rowasa) 4 g enema as directed Rectal Multiple Vitamins-Minerals (CENTRUM ADULTS PO) Orally omeprazole (PRILOSEC) 40 mg, Oral, Daily RT sulfaSALAzine (Azulfidine) 500 MG EC tablet TAKE 2 TABLETS BY MOUTH 4 TIMES A DAY tiZANidine (ZANAFLEX) 4 mg, Oral, 3 times daily Turmeric 400 MG capsule Oral PHYSICAL EXAM: Hip Musculoskeletal Exam Gait Gait is normal. Inspection Leg length disparity: no discrepancy Right Erythema: none Ecchymosis: none Edema: none Deformity: none Previous incision: anterolateral Incision: well-healed Palpation Right Right hip palpation is normal. Increased warmth: none Tenderness: none Range of Motion Right Right hip range of motion is within functional limits. Active ROM: normal. Passive ROM: normal. Active extension: 30. Passive extension: 30. Active flexion: 120. Passive flexion: 120. Active internal rotation: 35. Passive internal rotation: 35. Active external rotation: 40. Passive external rotation: 40. Active adduction: 25. Passive adduction: 25. Active abduction: 40. Passive abduction: 40. Strength Right Right hip strength is normal. Extension: 5/5. Flexion: 5/5. Internal rotation: 5/5. External rotation: 5/5. Adduction: 5/5. Abduction: 5/5. Neurovascular Right Right hip neurovascular exam is normal. Pulses - PT: normal Posterior tibial: 2+ General Constitutional: appears stated age Labored breathing: no Psychiatric: normal mood and affect Neurological: alert and oriented x3 Skin: intact Lymphadenopathy: none Vitals: There is no height or weight on file to calculate BMI. Tobacco Use: Medium Risk (03/29/2025) Patient History Smoking Tobacco Use: Former Smokeless Tobacco Use: Former Passive Exposure: Not on file Alcohol Use: Not At Risk (01/24/2020) Received from [facility] AUDIT-C Frequency of Alcohol Consumption: Never Average Number of Drinks: Not on file Frequency of Binge Drinking: Not on file IMAGING: XR hip right 2 or 3 views Imaging Result: AP and lateral of right hip showed acceptable position and alignment of right total hip arthroplasty. There was no evidence of loosening of the acetabular cup or femoral stem. Femoral head was well centered in the acetabular liner without evidence of asymmetric or accelerated wear. There was no gross evidence of fracture and/or dislocation. Impression: Unremarkable right total hip arthroplasty. Procedures Orders Placed This Encounter Procedures XR hip right 2 or 3 views Reason for exam:: Pain ASSESSMENT: ICD-10-CM 1. Pain of right hip M25.551 2. Primary osteoarthritis of right hip M16.11 XR hip right 2 or 3 views 3. Arthritis of knee, left M17.12 CANCELED: XR knee 1 or 2 views left 4. History of total hip replacement, right Z96.641 PLAN: We have discussed his x-rays of his right hip his physical exam and symptoms today at length. He is completely asymptomatic today very pleased with his progress as MRI. We'll see him back in one year for his hip. We'll see him back in 1 month for his bilateral knee replacement x-rays. Questions answered in laymen terms at the bedside. The diagnosis, home exercise plan and any ongoing restrictions/ recommendations reviewed. If unable to be reached in office, I recommend evaluation at nearest Emergency Room if any symptoms worsened or new symptoms develop for requiring urgent evaluation. documented in this encounter [facility] 02-14-2025 Instructions Darrian Dubon MD - 02/14/2025 7:41 AM EDT -PLEASE NOTE THAT WE REVIEW ALL YOUR TEST RESULTS AT YOUR NEXT FOLLOW UP VISIT WITH YOU. IF ANY ABNORMAL LAB REQUIRES SOONER ATTENTION, WE WILL CONTACT YOU. -If you have signed up on [employer], we will release your test results through [employer]. I wish you the best of health [...] and age appropriate immunization, is recommended. Please continue to take care, continue with your strength training exercises and take precautions from falls and fracture risk. Please review the information I provided you. [...] track your nutrition and calcium intake on [email or web address] This provides macro and micronutrient intake and requirements. - You can track your calcium intake on [email or web address] or any other calcium tracker of your [...] good oral hygiene and dental care - Exercise is very important for bone health: One of the most important things you can do for your bone density is to exercise on a regular basis and especially weight bearing and strength training exercises and avoid falls. For Osteoporosis exercises: -We offer one on one PT with our physical therapist who specialize in Osteoporosis Program. If you would like to be scheduled, let us know and we can assist you with an in person apt. -You can also follow along with this video on youtube and copy and paste this link: [email or web address] This is done by a Physical Medicine and Rehab doctor who is a divinity professor in [employer]. She completed a PhD at the [employer]. I hope you find it helpful. Please take precautions and start gradual when starting a new exercise program. Another reference includes this one: -Dominique RM, Peg Desai J, Ne RL, Agustin SF, Judy EW. Exercise for the prevention of osteoporosis in postmenopausal women: an evidence-based guide to the optimal prescription. Thor J Demolition Hammer Operator. 2019 Jan-Feb;23(2):170-180. doi: 10.1016/j.bjpt.2018.11.011. Epub 2017Oct 07. PMID: 06042204; PMCID: [id number]. - Stress can lead to bone loss. Please see information below on stress relief and care - A healthy diet coupled with adequate [...] hazelnuts, legumes, soybeans and other beans) - [place] (potatoes, avocados, almonds, peanuts) - Chromium (broccoli, [...] health benefits, among which are towards bone density. It is best to consume soy in foods such as cooked soy beans, tofu, tempeh, miso and soy milk. These are preferred over soy protein or isoflavone extract. -Wei BELLE. Soy foods: are they useful for optimal bone health? Ther Adv Musculoskelet Dis. 2011 Oct;3(6):293-300. doi: 10.1177/3418306U09114980. PMID: 31813904; PMCID: EIX9025555. -SUDHEER Carrillo., NYLA Dodson., GHAZAL Flores. et al. Soy isoflavone intake inhibits bone resorption and stimulates bone formation in menopausal women: meta-analysis of randomized controlled trials. Eur J Clin Nutr 62, 155-161 (2007). https://doi.org/10.1038/sj.ejcn.742655 8 -Clyde Rosa, Trisha Lara, Bar De Leon et al. Isoflavone intervention and its impact on bone mineral density in postmenopausal women: a systematic review and meta-analysis of randomized controlled trials. Osteoporos Int (2022). https://doi.org/10.1007/q80185-437-512 44-y -Jack Finch, Trisha Lara, Clyde Grant et al. Effects of isoflavone interventions on bone mineral density in postmenopausal women: a systematic review and meta-analysis of randomized controlled trials. Osteoporos Int 31, 8249-1485 (2020). https://doi.org/10.1007/j33653-833-807 76-z - Benefits of consuming soy in whole foods are listed in this article at the PCRM website: https://www.pcr.org/good-nutrition/nu trition-information/lup-nvv-erxpzp - Prunes have been reported to help with bone density and inflammation, and are also beneficial for the gut microbiome and constipation. -The Prune Study article: Perrin, Sivakumar ALDANA, Jordy NI, Edouard H, Flor KJ, Trey Watters, Praveena MG, Ara CH, Terry C. Prunes preserve hip bone mineral density in a 12-month randomized controlled trial in postmenopausal women: the Prune Study. Am J Clin Nutr. 2021Aug 21;116(4):897-910. doi: 10.1093/ajcn/tjso861. PMID: 43770614. -Benefit to bone density and inflammation: Hebert WYMAN, Perrin, Glory SOLARES, Sivakumar ALDANA, Trey CUBA. The Role of Prunes in Modulating Inflammatory Pathways to Improve Bone Health in Postmenopausal Women. Adv Nutr. 2021Aug 17;13(5):4700-8029. doi: 10.1093/advances/fnwp919. PMID: 41022669; PMCID: FDQ5916288. - Information on Vitamin K2: more recently [...] with the exception of Natto (a traditional Stateless food made from fermented soybeans) has high [...] of these foods, please consult with your Unit Nurse or Physician first. Review of Osteoporosis medications [...] the jaw) and atypical fracture of femur. You can read more at these [facility] web links: https://my.[facility].org/health/ treatments/71344-quhpiyqlksyqjdq For Fosamax/alendronate: https://my.[facility].org/health/ drugs/73674-ylmnnnifydi-jopxkdq For Actonel/risedronate: https://my.[facility].org/health/ drugs/20873-htoptsmitmn-zyxn-knluzauNr r Reclast/zoledronic acid: https://my.[facility].org/health/ drugs/41219-krftbknqxp-taze-yuayrinej- bsmpty-vtmhqyb-ktmungcpzbkx -Subcutaneous Prolia: this is one injection every 6 months, given by the nurse in the office. This medication is given manager terminal, indefinitely. Prolia should not be discontinued [...] looked into transition therapy. Recent study from [facility] Slim et al, 04/11/2020 (PMID: 32673956.The study is ongoing, clinicaltrials.gov; [id number]), reported one infusion of IV Reclast did [...] the jaw) and atypical fracture of femur. You can read more at these [facility] web links: https://my.[facility].org/health/ drugs/90911-rhjmodevc-goyrmalpx Medications that build bone density and prevent osteoporosis fractures: -Subcutaneous Forteo or Tymlos, once daily injections at home: these are for 2 yrs and then will need to transition to anti-resorptive therapy, such as a bisphosphonate or Prolia after that, based on guidelines. These medications are contraindication in certain conditions, such as hyperparathyroidism, hypercalcemia, Paget's disease of the bone, radiation therapy to the bones, etc... You can read more at these [facility] web links: For Forteo/teriparatide: https://CoursePeer.[facility].Seisquare/health/ drugs/89438-awzryalafwvv-nlcxkrurl For Tymlos/abaloparatide: https://CoursePeer.[facility] International/health/ drugs/98575-ncnycoprjgabf-koifdypww Medication that both prevents bone loss and builds bone density and prevents Osteoporosis fractures: -Subcutaneous Evenity (romosozumab, an anti-sclerostin monoclonal antibody). This is a monthly subcutaneous injection (2 injections every visit, by the nurse). This is given for 1 year and then followed by Prolia or a bisphosphonate. It has listed CV risk and warning that it should not be initiated in patients who have had an SD or stroke in the preceding year or those considered high risk. We may need a clearance from a Blankbook Forwarder prior to proceeding with this medication in patients who have a cardiovascular disease history. This is only prescribed for 1 year and then needs to be followed by anti-resorptive therapy, according to recommendations. You can read more at these [facility] web links: For Evenity/romosozumab: https://CoursePeer.[facility]/health/ drugs/06852-aiucpvzezrz-dsbcnkkrm Other less potent Osteoporosis medications, such as [...] Written information provided for patient review. - Written resources and additional information on Osteoporosis and the different available medications were provided: Link to the [place] [employer] website at: https://www.rheumatology.org/I-Am-A/Ernesto greennt-Caregiver/Diseases-Conditions/Os teoporosis Link to the [facility] web link at: On Osteoporosis: https://my.[facility].org/health/ diseases/4443-osteoporosis On Osteopenia: https://my.[facility].org/health/ diseases/83024-folrwvacao - Additional information on Bone Health and [...] Osteoporosis Foundation) http://www.osteo.org/osteolinks.asp National Institutes of Health: 1-160-078-BONE The Calcium Information [place]: Non-Dairy, Plant based Milk, can contain in1 glass up to 450 mg of calcium (300 to 450 mg) Exampled include Oat Milk, Flax Milk, [place] Milk, Cashew Milk, Soy Milk, Peas Milk Examples of Food Sources of Calcium from [facility] Food Milligrams (mg) per serving Percent DV* Soymilk, calcium-fortified, 8 ounces 299 30 Coffee juice, calcium-fortified, 6 ounces 261 26 Tofu, firm, made with calcium sulfate, cup* 253 25 Tofu, soft, made with calcium sulfate, cup* 138 14 Xwjkb-dh-ssg cereal, calcium-fortified, 1 cup 100-1,000 10-100 Turnip greens, fresh, boiled, cup 99 10 Kale, raw, chopped, 1 cup 100 10 Kale, fresh, cooked, 1 cup 94 9 Turkmen cabbage, bok marin, raw, shredded, 1 cup 74 7 Bread, white, 1 slice 73 7 Tortilla, corn, ugoxk-ef-sewt/marshall, one 6 diameter 46 5 Tortilla, flour, picnx-yv-xiws/marshall, one 6 diameter 32 3 Bread, whole-wheat, [...] daily with a meal; Certain patients require 9129-0528 international units daily and in patients deficient [...] bones. Studies show approximately 50% of [place] men and women are vitamin D deficient [...] of falling. Additional Information is available from: [facility] Osteoporosis Information: https://my.[facility].org/departm ents/orthopaedics-rheumatology/depts/o steoporosis-metabolic The Bone Health and Osteoporosis Foundation (formerly the National Osteoporosis Foundation) : https://www.bonehealthandosteoporosis. org International Osteoporosis Foundation: https://www.osteoporosis.foundation http://ods.od.nih.gov/factsheets/vitam ind.asp National Institutes of Health: 4-295-192-BONE The Calcium Information [place]: I recommend following a healthy lifestyle. You [...] track your nutrition and calcium intake on www.[employer].[facility] This provides macro and micronutrient intake and [...] that features the Whole Plant Based diet, Sherwood over knives (see video online and visit website). Another movie that was recently released is: Eating You Alive (you can find it at Attention Point) and The Game Changers movie Dr. Fauzia Ansari is a [facility] physician who has done research and published books, is an expert in Whole Plant based diet for prevention and reversal of heart disease. His website is nkf-pharma. His research highlights the benefits of the Whole food plant based diet in reversing and preventing heart disease. Mrs. Cookie Ansari (his ) has a cookbook with many recipes on whole plant based food: The Prevent and Reverse Heart Disease cookbook. Cookie and Yamile Ansari have a cooking show on YouTube called: Plant-Based with Yamile Ansari and Cookie Ansari. You can also consider reading his son, Eze Ansari's book: The Engine 2 cookbook Eze is a retired quantitative researcher who has helped many people get healthier by following the whole food plant based diet. Dr. Rock Velazco, has a website and free angélica to help get started on a whole plant based diet, at www.pcrDesktone.org and you can log on for free for his 21-Day Kickstart with meals and recipes to follow for 21 days. There is also a free angélica for that. He has multiple free videos and YouTube, for example: https://youOKCoin.be/mpdOykyA7b9 , https://youtagUinu.be/VpNPAmiti5w He has written multiple books, including Power Food for the Brain, The Cheese Trap, Dr. Rock Velazco's Program for Reversing Diabetes, Your Body in Balance You can also watch YouTube channel : The Doc & Certified Technician Dr. Anthony Carlson has shown the benefit of a starch based whole food plant based diet to his Rheumatoid Arthritis patients, as well as patient with diabetes II, hypertension, obesity, multiple sclerosis, heart disease, acne, and other, his website: www.magnoliaMENABANQER.[facility] Dr. Yayo Allred is a renowned forensic scientist, who has studied and researched the benefits of the Whole plant based diet. He has also researched the adverse effects of animal proteins on health. He presents many of his research findings in his book The [place] study. Dr. Gerber Becker has completed many research trials proving the reversal of diseases, such as heart disease and early prostate cancer, with healthy lifestyle and the Whole Plant based diet. Dr. Gerber Becker website is: www.alvaroBrandFiesta.[facility] His new book: Undo It, has evidence based information and guide to following this healthy lifestyle. Dr. Cody Dillon has dedicated a website and additional time to reviewing all food related articles and research and presents them in his power point presentation and on his website at: nutritionfacts.org which is all free. Dr. Dillon has multiple free videos and YouTube, for example https://youtagUinu.be/aSgNkhgVtks and https://youtagUinu.be/lXXXygDRyBU. He has written multiple books including: How Not To and How Not To Diet He is now working on his next book: How Not To Age Dr. Danitza Dash (from the [facility]), has articles on the following website: [employer] For additional ideas on recipes, you could find additional information on practical to follow recipes by reading or watching online and YouTube such as: Certified Technician AJ, Cooking With Plants, The Vegan Corner (recipes from an [place] Certified Technician), The Whole Foods Plant Based Cooking Show and visiting the provided websites for additional information on the whole plant based benefit and cooking recipes. You can also consider watching the vlogs of some of the plant based Athletes such as Fausto Ewing Derek on Spaces 2 Host. You can find very good recipes for making easy tasty whole plant based foods and for free at the following YouTube channels: - Plant-Based with Yamile Ansari and Cookie Ansari - The Whole Food Plant Based Cooking Show - Well Your World - Chew on Vegan (is a nurse RN) -The Jarmookie Family - A Plant Based (is a nurse RN) - HealthyVeganEating - Epic Mint Leaves (simple few ingredient meals, quick recipes) - Broccoli Mum - PB with J - Dr. Jenny Degroot Lifestyle Medicine (is a Blankbook Forwarder and Lifestyle Medicine Physician) -Sometimes it helps to start with a simple diet of potatoes, that Dr. Carlson calls Yarelis Butler. You can learn more about that in his website: www.[employer].[facility] This is the website for Yarelis Mini pdf : https://www.[employer].[facility]/wp-content /uploads//Georgiana-Mini_Website_Pr int_Version-1.pdf You can also read more on Dr. Carlson's website - When you goal is to lose weight, it is important to listen to your hunger cues. Don't eat until you are stuffed. As soon as you feel you are no longer hungry, stop eating. There is a Stateless saying that says Tammie Vega, meaning eat until you are 80% full. I say avoid eating past 80% of your stomach fullness. This originated from the city of [facility], which is one of the sites reported in the Blue Luma[employer] book, one of the highest cities in the world for having the most centenarians. Remember your stomach needs space and capacity for proper digestion of your food. Like a meat and seafood clerk or a forest management teacher, they have a limit for proper function, and should not be filled to the top. You can read more about that from the [facility] article Don t Eat Until You re Full ? Instead, Mind Your Tammie Grissom [place] , at https://health.[facility].org/don x-wsk-onrpq-qsgjq-mnil-bqbtwmu-mind-yo vu-sugn-sevfg-bu-point/ Most plants contain proteins and all essential [...] website, and on youtube her channel is: Melany Lupus Some people have adverse effect or intolerance to gluten. Certain patients with auto-immune disease, including auto-immune thyroid disease, need to avoid gluten. If you suspect you are gluten sensitive or intolerant, you will need to consult with a area cleaner to have further evaluation to exclude Celiac [...] - Gentle Yoga Anyone Can Do Anywhere www.Modebo.[facility]/yoga Also on youtube: yoga with Karlie For women, especially after menopause, strength training is important. You can read more on that from Clare Morley, PhD at her website https://www.shoutr.[facility] and YouTube videos. If you are a beginner, it is best to start with a physical therapist or personal computer network analyst. There are also several Aps that offer virtual personal training 3- Good Sleep (poor sleep impacts everything, recommended sleep is 7 to 8 hrs. a night). Certain people may need more sleep, depending on their age and other conditions. Meditation and relaxation techniques have shown to help with improving sleep. Try to be consistent with your sleep. You can find more at the [facility] Website on : https://my.[facility].org/departm ents/wellness/store/go-well#sleep-tab 4- Stress management, be [...] Calm Insight Timer Meditation Stress Free Now ([facility]). You can find more resources at the [facility] website at : https://my.[facility].org/departm ents/wellness/store/go-well#stress-iron e-tab There are many free youtube videos on guided meditation as well For Breathing techniques: You can watch [employer] and learn the breathing technique and its benefits by watching the following YouTube: https://[employer].Efficient Cloud/8Hk5C-WKk68?si=-Xtdfr 4UpsJOUbDU. Learning about your awareness/spiritual being, is [...] a psychotherapist or behavioral health middle school coach. When having a psychiatric condition, it [...] or a higher dose. Raw: Garlic, Cilantro, [place] nuts, Pumpkin seeds, [place] seeds and Flax seed powder have been reported to help with certain metal detoxification such as mercury. Butler-3 plant based rich foods are good anti-inflammatory [...] the Whole Plant Based Diet, by watching Sherwood over [employer] movie and then review website. There are many other resources and educational information on the Whole plant based diet on the Internet and documentaries. There are other resources for wellness that you can also benefit from, such as the [facility] Wellness website, [facility].org and includes Plant based and Mediterranean diet, yoga and meditation. Please avoid all dairy products. You could use non-dairy milk such as Flax milk, Cashew milk, [place] milk, Rice milk, Oat milk or Hemp [...] below, just add the ingredients to your forest management teacher and blend: - Probably the healthiest smoothie is one that contains mostly green leafy vegetables (especially containing kale), some berries, flax seed and water. This might not route returner to be sweet. You can add one or two pitted dates or a frozen banana for natural sweetness. Examples of healthy green smoothies, pack your forest management teacher (at least half way to 3/4) with a mix of green leafy veggies, then top your forest management teacher with fruits (such as banana or frozen raul or pineapple, peaches, apricots, apples, grapes), a tablespoon of flax or david seeds, then add water or unsweetened coconut water and blend until smooth. You can also add turmeric in this recipe. Do not only use spinach as they tend to be high in oxalates and can be risk for kidney stones. The same with rwandan chards and beet leaves. If you don't [...] of your health and wellbeing. At the [facility], we work as a team for your care, along with Nurse Practitioners, Physician Assistants, Nurses and Medical Assistants. It is a privilege and honor to serve you. Thank you for choosing The [facility] for your healthcare. [...] usual activities immediately. documented in this encounter [facility] 02-14-2025 History of Present illness Narrative Images from the original note were not included. FOLLOW UP VISIT Patient's Name: Jam Erwin [facility] [id number] PCP: Jose L Lackey MD [address] [place] [phone] Consult Requested by: Jose L Lackey MD [address] [place] [id number] Other physicians: Electric Motor And Generator Assembler prev. Nel Lebron MD (his prev. area cleaner left- Ronald Brown MD) ; Now following with Dr. Luis Antonio García Accompanied by: self Interim history: Mr. Toscano is a very nice 59 y.o. gentleman here for f/u visit for Rheumatoid Arthritis and Osteoporosis He follows with IBD, UC, on Entyvio and sulfasalazine; States had liver US and fibroscan, told no fatty liver He is no longer on anti-TNF therapy. States his PCP is treating his anemia with iron, was on supplement and switched to IV. He is not aware of bleeding, denies BRBPR and denies melena. He follows with Electric Motor And Generator Assembler for his UC. States has scopes this summer by his area cleaner. He is following with Orthopedics for his osteoarthroses and non-inflammatory joint pains. He has a chronic rotator cuff tear and extensive bilateral glenohumeral degenerative disease. His s/p b/l TKR and rt THR. Hissed rate was elevated at 79 04/2024 at time of his pneumonia. He continues on sulfasalazine and Entyvio by his area cleaner. He does not describe RA related symptoms No jt pains or swelling outside of the LLE from TKR Denies rheum nodules No stiffness He is on sulfasalazine per area cleaner for his UC and this has been controlling his RA He is pleased with his treatment regimen He also states that his IBD is well controlled, states told is in remission, on Entyvio Doing exercise and working with personal computer network analyst at the gym and will be going to the gym exercises. Denies serious infections in 2024. Denies interim infections or fevers, last pneumonia 04/2024. Had covid-19, 10/2024, no complications, flu like sympt, did not require hosp, resolved. States it was only couple days. Denies interim fractures He received Reclast infusion 05/09/2024, well tolerated Follows with dentist every 6 months, denies jaw pain or dental problems. He has lower partial; States chipped one of his teeth and will be following with his dentist for that shortly. Denies upcoming dental work Continues on vitamin D: 5000 international units once daily with meals Taking multivitamin Calcium is in diet and multivitamin 09/23/2022 His main problem has been in IBD and is following with local area cleaner for that. Has been on Humira since Sep 2020 (started with 80 mg loading dose and since has been on 40 mg every 2 wks) He was pleased with Enbrel response to his RA and later was switched to Humira, reports has similar benefit and is pleased with response. His area cleaner switched him to Humira for optimal mgt of IBD and he feels this has helped his IBD better. Reports still gets 8 BM's a day, does not have BM at night, does not have to wake up from sleep. Has been following with his area cleaner for his UC Had colonoscopy 11/22/2021 with reported marked improvement in asc/transv/desc colon and severe active in rectum, histopath with active colitis with erosions. States Dr. Lebron has started him on rectal enemas. Recent colonoscopy with reported active colitis. He tells me that he continues to have multiple BM's; His area cleaner prescribed pred. course, completed recently. 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 (previously was on Enbrel 25 mg twice a wk and has been in remission since on Enbrel and very pleased with his treatment regimen) He is on Humira 40 mg every 2 wks by his Electric Motor And Generator Assembler He is on sulfasalazine, Humira and mesalamine enemas per his area cleaner I have reviewed benefits of a whole food plant based diet He consumes dairy, cheese, sausage, hamburger. I have advised him on avoiding meats and dairy and reviewed reports and patient experience with flare of IBD and RA, as well as gastrointestinal dysbiosis. I advised him on a whole foods plant based diet. He has a forest management teacher ([employer]) and interested in making healthy smoothies and [...] this patient with known rheumatoid arthritis. Supervisor Porcelain Department: CODY Transcribe Date/Time: Feb 20 2021 9:52A [...] site where has fallen arch. Has seen Still Cleaner Tube in the remote past for the fallen arch, not recently. Feels gets stiff when not moving as much. Denies any injury or trauma. Denies any pain to me today States his area cleaner has prescribed prednisone course due to IBD flare States after scope was told is flared. He is on sulfasalazine and budesonide and his area cleaner and since has switched him from Enbrel [...] Alk phos isoenz: liver fraction; followed by area cleaner He follows with his area cleaner for hi elev alk phos and AST and for bld with stools, Dr Brown: and states he started him on iron supplement States Dr. Brown prescribed metronidazole, for reported diarrhea. [facility] felt it made a difference. States he gave him enemas and told that is for his ulcerative colitis and prescr. sulfasalazine. In 2019, has also followed with his area cleaner for blood with stools, and had flex sig and told he was inflamed from his Ulcerative colitis. [facility] had colonosc and EGD in 2018 and was told were good. Told his bld in stools from his UC and patient states notices also mucus when wipes. [facility] had increased his sulfasalazine dose. [facility] also notices that dairy and cheese caused really bad inflammation from these and has avoided since. [facility] also avoids coffee and consumes green [...] systems reviewed and are negative DXA Model: anchor.travel W [id number] SITE SCANNED: Lumbar spine and left hip [...] were all normal. He follows with his area cleaner for his ulcerative colitis and is on sulfasalazine. He was told by his area cleaner to avoid sun exposure due to this med, had skin itching last summer. He had evaluation for elevated AST and alk phos. Alk phos has improved and AST has been borderline elevated. I have advised him to f/u with his area cleaner for his elevated alk phos (liver fraction) States his area cleaner did an US of his liver twice and was told was normal. He denies any alcohol consumption or acetaminophens. His isoenzyme indicated predom. of liver origin.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 Ansari's book: The Engine 2 cookbook Eze is a retired quantitative researcher who has helped many people get healthier by following the whole food plant based diet. Dr. Rock Velazco, has a website and free angélica to help get started on a whole plant based diet, at www.College Snack Attack.Seisquare and you can log on for free for his 21-Day Kickstart with meals and recipes to follow for 21 days. There is also a free angélica for that. He has multiple free videos and YouTube, for example: https://WSC Group.be/nptPibbV9k6 , https://WSC Group.be/RtUPWpmfi7i He has written multiple books, including Power Food for the Brain, The Cheese Trap, Dr. Rock Velazco's Program for Reversing Diabetes, Your Body in Balance You can also watch YouTube channel : The Doc & Certified Technician Dr. Anthony Carlson has shown the benefit of a starch based whole food plant based diet to his Rheumatoid Arthritis patients, as well as patient with diabetes II, hypertension, obesity, multiple sclerosis, heart disease, acne, and other, his website: www.magnoliaMy Top 10angel.[facility] Dr. Yayo Allred is a renowned forensic scientist, who has studied and researched the benefits of the Whole plant based diet. He has also researched the adverse effects of animal proteins on health. He presents many of his research findings in his book The [place] study. Dr. Gerber Becker has completed many research trials proving the reversal of diseases, such as heart disease and early prostate cancer, with healthy lifestyle and the Whole Plant based diet. Dr. Gerber Becker website is: www.[employer].[facility] His new book: Undo It, has evidence based information and guide to following this healthy lifestyle. Dr. Cody Dillon has dedicated a website and additional time to reviewing all food related articles and research and presents them in his power point presentation and on his website at: nutritionfacts.org which is all free. Dr. Dillon has multiple free videos and YouTube, for example https://youOKCoin.Efficient Cloud/aSgNkhgVtks and https://youOKCoin.be/lXXXygDRyBU. He has written multiple books including: How Not To and How Not To Diet He is now working on his next book: How Not To Age Dr. Danitza Dash (from the [facility]), has articles on the following website: [employer] For additional ideas on recipes, you could find additional information on practical to follow recipes by reading or watching online and YouTube such as: Certified Technician AJ, Cooking With Plants, The Vegan Corner (recipes from an [place] Certified Technician), The Whole Foods Plant Based Cooking Show and visiting the provided websites for additional information on the whole plant based benefit and cooking recipes. You can also consider watching the vlogs of some of the plant based Athletes such as Fausto Ewing Derek on Spaces 2 Host. You can find very good recipes for making easy tasty whole plant based foods and for free at the following YouTube channels: - Plant-Based with Yamile Ansari and Cookie Ansari - The Whole Food Plant Based Cooking Show - Well Your World - Chew on Vegan (is a nurse RN) -The Jaroudi Family - A Plant Based (is a nurse RN) - HealthyVeganEating - Epic Mint Leaves (simple few ingredient meals, quick recipes) - Broccoli Mum - PB with J - Dr. Jenny Degroot Lifestyle Medicine (is a Blankbook Forwarder and Lifestyle Medicine Physician) -Sometimes it helps to start with a simple diet of potatoes, that Dr. Carlson calls Yarelis Butler. You can learn more about that in his website: www.BrightArch This is the website for Patricias Carrie pdf : https://www.BrightArch/wp-content /uploads//[facility]_Website_Pr int_Version-1.pdf You can also read more on Dr. Carlson's website - When you goal is to lose weight, it is important to listen to your hunger cues. Don't eat until you are stuffed. As soon as you feel you are no longer hungry, stop eating. There is a Stateless saying that says Tammie Vega, meaning eat until you are 80% full. I say avoid eating past 80% of your stomach fullness. This originated from the city of [facility], which is one of the sites reported in the [employer] book, one of the highest cities in the world for having the most centenarians. Remember your stomach needs space and capacity for proper digestion of your food. Like a meat and seafood clerk or a forest management teacher, they have a limit for proper function, and should not be filled to the top. You can read more about that from the [facility] article Don t Eat Until You re Full ? Instead, Mind Your Tammie Vega Point , at https://health.[facility].org/don u-iax-aafaq-iuzcn-ceyn-prvldst-mind-yo od-hrxp-yjiln-salvador-point/ Most plants contain proteins and all essential [...] a nutrition tracker such as cronometer or Geoshopal and others. Dr. Maryan Holguin (a psychiatrist [...] you will need to consult with a area cleaner to have further evaluation to exclude Celiac [...] - Gentle Yoga Anyone Can Do Anywhere www.Modebo.[facility]/yoga Also on youtube: yoga with Karlie For women, especially after menopause, strength training is important. You can read more on that from Clare Morley, PhD at her website https://www.rayDesalitech.[facility] and YouTube videos. If you are a beginner, it is best to start with a physical therapist or personal computer network analyst. There are also several Aps that offer virtual personal training 3- Good Sleep (poor sleep impacts everything, recommended sleep is 7 to 8 hrs. a night). Certain people may need more sleep, depending on their age and other conditions. Meditation and relaxation techniques have shown to help with improving sleep. Try to be consistent with your sleep. You can find more at the [facility] Website on : https://my.[facility].org/[facility] ents/wellness/store/go-well#sleep-tab 4- Stress management, be happy, laugh [...] Calm Insight Timer Meditation Stress Free Now ([facility]). You can find more resources at the [facility] website at : https://my.[facility].org/[facility] ents/wellness/store/go-well#stress-iron e-tab There are many free youtube videos on guided meditation as well For Breathing techniques: You can watch John Carlisle and learn the breathing technique and its benefits by watching the following YouTube: https://WSC Group.be/5Ok9V-RPg61?si=-Xtdfr 4UpsJOUbDU. Learning about your awareness/spiritual being, is [...] a psychotherapist or behavioral health middle school coach. When having a psychiatric condition, it [...] or a higher dose. Raw: Garlic, Cilantro, Lu[place]ne nuts, Pumpkin seeds, Keswick seeds and Flax seed powder have been reported to help with certain metal detoxification such as mercury. Butler-3 plant based rich foods are good anti-inflammatory [...] the Whole Plant Based Diet, by watching Sherwood over [employer] movie and then review website. There are many other resources and educational information on the Whole plant based diet on the Internet and documentaries. There are other resources for wellness that you can also benefit from, such as the [facility] Wellness website, [facility] and includes Plant based and Mediterranean diet, yoga and meditation. Please avoid all dairy products. You could use non-dairy milk such as Flax milk, Cashew milk, [place] milk, Rice milk, Oat milk or Hemp [...] below, just add the ingredients to your forest management teacher and blend: - Probably the healthiest smoothie is one that contains mostly green leafy vegetables (especially containing kale), some berries, flax seed and water. This might not route returner to be sweet. You can add one or two pitted dates or a frozen banana for natural sweetness. Examples of healthy green smoothies, pack your forest management teacher (at least half way to 3/4) with a mix of green leafy veggies, then top your forest management teacher with fruits (such as banana or frozen raul or pineapple, peaches, apricots, apples, grapes), a tablespoon of flax or david seeds, then add water or unsweetened coconut water and blend until smooth. You can also add turmeric in this recipe. Do not only use spinach as they tend to be high in oxalates and can be risk for kidney stones. The same with rwandan chards and beet leaves. If you don't [...] of your health and wellbeing. At the [facility], we work as a team for your care, along with Nurse Practitioners, Physician Assistants, Nurses and Medical Assistants. It is a privilege and honor to serve you. Thank you for choosing [facility] for your healthcare. [...] usual activities immediately. documented in this encounter [facility] 10-05-2024 Note HNO ID: [id number] Author: DARRIAN DUBON MD Service: ? Author Type: Physician Type: Progress Notes Filed: 10/16/2024 19:47 Note Text: FOLLOW UP VISIT Patient's Name: Jam Erwin [facility] [id number] PCP: Jose L Lackey MD [facility] [place] [address] Consult Requested by: Jose L Lackey MD [address] [place] [id number] Other physicians: Electric Motor And Generator Assembler prevBrittney Lebron MD (his prev. area cleaner left- Ronald Brown MD) ; Now following [...] No stiffness He is on sulfasalazine per area cleaner for his UC and this has been controlling his RA He is pleased with his treatment regimen He also states that his IBD is well controlled, states told is in remission, on Entyvio Doing exercise and working with personal computer network analyst at the gym and will be going [...] in IBD and is following with local area cleaner for that. Has been on Humira since Sep 2020 (started with 80 mg loading dose and since has been on 40 mg every 2 wks) He was pleased with Enbrel response to his RA and later was switched to Humira, reports has similar benefit and is pleased with response. His area cleaner switched him to Humira for optimal mgt of IBD and he feels this has helped his IBD better. Reports still gets 8 BM's a day, does not have BM at night, does not have to wake up from sleep. Has been following with his area cleaner for his UC Had colonoscopy 11/22/2021 with reported marked improvement in asc/transv/desc colon and severe active in rectum, histopath with active colitis with erosions. States Dr. Lebron has started him on rectal enemas. Recent colonoscopy with reported active colitis. He tells me that he continues to have multiple BM's; His area cleaner prescribed pred. course, completed recently. 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 (previously was on Enbrel 25 mg twice a wk and has been in remission since on Enbrel and very pleased with his treatment regimen) He is on Humira 40 mg every 2 wks by his Electric Motor And Generator Assembler He is on sulfasalazine, Humira and mesalamine enemas per his area cleaner I have reviewed benefits of a whole food plant based diet He consumes dairy, cheese, sausage, hamburger. I have advised him on avoiding meats and dairy and reviewed reports and patient experience with flare of IBD and RA, as well as gastrointestinal dysbiosis. I advised him on a whole foods plant based diet. He has a forest management teacher ([employer]) and interested in making healthy smoothies and [...] I have ad (more content not included)... [facility] 10-05-2024 History of Present illness Narrative Images from the original note were not included. FOLLOW UP VISIT Patient's Name: [place] [address] PCP: Jose L Lackey MD [address] [facility] [place] [address] Consult Requested by: Jose L Lackey MD [address] [facility] [address] Other physicians: Electric Motor And Generator Assembler prev. Nel Lebron MD (his prev. area cleaner left- Ronald Brown MD) ; Now following [...] No stiffness He is on sulfasalazine per area cleaner for his UC and this has been controlling his RA He is pleased with his treatment regimen He also states that his IBD is well controlled, states told is in remission, on Entyvio Doing exercise and working with personal computer network analyst at the gym and will be going [...] in IBD and is following with local area cleaner for that. Has been on Humira since Sep 2020 (started with 80 mg loading dose and since has been on 40 mg every 2 wks) He was pleased with Enbrel response to his RA and later was switched to Humira, reports has similar benefit and is pleased with response. His area cleaner switched him to Humira for optimal mgt of IBD and he feels this has helped his IBD better. Reports still gets 8 BM's a day, does not have BM at night, does not have to wake up from sleep. Has been following with his area cleaner for his UC Had colonoscopy 11/22/2021 with reported marked improvement in asc/transv/desc colon and severe active in rectum, histopath with active colitis with erosions. States Dr. Lebron has started him on rectal enemas. Recent colonoscopy with reported active colitis. He tells me that he continues to have multiple BM's; His area cleaner prescribed pred. course, completed recently. 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 (previously was on Enbrel 25 mg twice a wk and has been in remission since on Enbrel and very pleased with his treatment regimen) He is on Humira 40 mg every 2 wks by his Electric Motor And Generator Assembler He is on sulfasalazine, Humira and mesalamine enemas per his area cleaner I have reviewed benefits of a whole food plant based diet He consumes dairy, cheese, sausage, hamburger. I have advised him on avoiding meats and dairy and reviewed reports and patient experience with flare of IBD and RA, as well as gastrointestinal dysbiosis. I advised him on a whole foods plant based diet. He has a forest management teacher ([employer]) and interested in making healthy smoothies [...] this patient with known rheumatoid arthritis. Supervisor Porcelain Department: PSCB Transcribe Date/Time: Feb 20 2021 9:52A Dictated [...] site where has fallen arch. Has seen Still Cleaner T[employer] in the remote past for the fallen arch, not recently. Feels gets stiff when not moving as much. Denies any injury or trauma. Denies any pain to me today States his area cleaner has prescribed prednisone course due to IBD flare States after scope was told is flared. He is on sulfasalazine and budesonide and his area cleaner and since has switched him from Enbrel [...] Alk phos isoenz: liver fraction; followed by area cleaner He follows with his area cleaner for hi elev alk phos and AST and for bld with stools, Dr Brown: and states he started him on iron supplement States Dr. Brown prescribed metronidazole, for reported diarrhea. States felt it made a difference. States he gave him enemas and told that is for his ulcerative colitis and prescr. sulfasalazine. In 2019, has also followed with his area cleaner for blood with stools, and had flex sig and told he was inflamed from his Ulcerative colitis. [facility] had colonosc and EGD in 2018 and was told were good. Told his bld in stools from his UC and patient states notices also mucus when wipes. [facility] had increased his sulfasalazine dose. [facility] also notices that dairy and cheese caused really bad inflammation from these and has avoided since. [facility] also avoids coffee and consumes green [...] systems reviewed and are negative DXA Model: [facility] W [id number] SITE SCANNED: Lumbar spine and left hip [...] were all normal. He follows with his area cleaner for his ulcerative colitis and is on sulfasalazine. He was told by his area cleaner to avoid sun exposure due to this med, had skin itching last summer. He had evaluation for elevated AST and alk phos. Alk phos has improved and AST has been borderline elevated. I have advised him to f/u with his area cleaner for his elevated alk phos (liver fraction) States his area cleaner did an US of his liver twice and was told was normal. He denies any alcohol consumption or acetaminophens. His isoenzyme indicated predom. of liver origin. The patient reports that his area cleaner completed evaluation and told his liver is fine. His liver US was unremarkable . His anemia has resolved since his UC has been controlled. States saw his area cleaner, Dr. Lebron, recently and states told him [...] and denies hematuria or dysuria. DXA Model: anchor.travel W [id number] SITE SCANNED: Lumbar spine and left hip [...] states not bad . has seen a industrial electrician journeyman in the past, in [place], Dr. Whitfield. States used to be on Remicade with him, was expensive. Patient states went on bankruptcy and had to leave, [...] not recall these symptoms in the past. States had EGD and colonoscopy and was told had ulcer of lower gastrointestinal tract and diagnosed with UC. Patient unaware if biopsies were done. Treatment: ant-acid in am, omeprazole, states they recommended also mesalamine enema and sulfasalazine 500mg q 6hrs. Reports benefit and his area cleaner took him off the iron supplement as his iron was good. [facility] has advised him to avoid all nsaids and recently had discontinued his Celebrex. [facility] has another apt and scheduled for scope next wk Tu. RHEUM. ROS: Joint pain: as above; none currently Joint swelling: as above; none currently Am stiffness: as above; none currently Low back pain: no Dactylitis: no H/o precedent/frequent infection(s): as above Enthesopathy/[place]'s/heel/plantar tenderness: no Skin thickening, psoriasis, photosensitivity, purpura: no Nail changes: no Alpecia, patchy: no; has MPB Eye inflammation: no SICCA: no Oral/nasal/genital ulcers: no GI problems-diarrhea/bleeding/IBD/Gluten intolerence/Dysphagia: as above Raynaud's phenomenon/digital ulcers: no Organ inv-Serositis: no Lung disease/ILD: no Myopathy/proximal muscle weakness: no Abnormal Urine or urethritis: no Renal disease: no STATE SUPERINTENDENT OF SCHOOLS/PNS disease: no and denies MS HEME-Cytopenias/LAD/Clots: iron [...] Marital Status: Single denies children 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 Lackey Smoking: quit [...] Abs Lymph 1.00 - 4.00 k/uL 3.02 Bannock% 9.7 Abs Bannock 0.00 - 0.86 k/uL 0.79 Eosin% 0.0 [...] Negative Negative Ketones, Urine Negative Negative Specific Redig, Ur 1.005 - 1.030 1.008 Hemoglobin/Blood,Ur Negative 3+ (A) pH, Urine 4.5 - 8.0 6.0 Protein, Urine Negative mg/dL Negative Urobilinogen Normal Normal Nitrites Negative Negative Leukest Negative Negative Comments SEE COMMENT Urine Adan Comment SEE COMMENT WBC, Urine 0 - 5 /HPF 0-5 RBC, Urine 0 - 3 /HPF >25 (A) Sm Antibody <1.0 AI <0.2 MAIL DISTRIBUTION CLERK Antibody <1.0 AI 1.2 (H) SSA Antibody <1.0 AI <0.2 SSB Antibody <1.0 AI <0.2 Centromere Ab <1.0 AI <0.2 Scleroderma Ab, IgG <1.0 AI <0.2 Milagro 1 Antibody <1.0 AI <0.2 Ribosomal MAIL DISTRIBUTION CLERK <1.0 AI <0.2 Chromatin Antibody <1.0 AI [...] <12 Sm Antibody <1.0 AI <0.2 Ribosomal MAIL DISTRIBUTION CLERK <1.0 AI <0.2 Chromatin Antibody <1.0 AI <0.2 SSA Antibody <1.0 AI <0.2 SSB Antibody <1.0 AI <0.2 MAIL DISTRIBUTION CLERK Antibody <1.0 AI 1.2 Scleroderma Ab, IgG [...] CONSISTENT WITH CHRONIC SEVERE RHEUMATOID ARTHRITIS. Supervisor Porcelain Department: KETTY Transcribe Date/Time: Aug 29 2015 12:56P ... Last XR Ankle - Impression Only XR ANKLE GENERAL 3V AP/LAT/OBL LT Exam End: 02/20/2021 8:42 AM (Final result) Impression: IMPRESSION: Arthritic changes demonstrating interval progression in this patient with known rheumatoid arthritis. Supervisor Porcelain Department: CODY Transcribe Date/Time: Feb 20 2021 9:52A [...] developed and its performance characteristics determined by [facility]'s [facility] Pathology and Laboratory Medicine [place] ([facility]). It has not been cleared or approved by the FDA. -[facility] is regulated under CLIA as qualified [...] 147 53 - 334 mg/dL Final MPA Cataract, Serum Date Value Ref Range Status 08/19/2018 1,020 534 - 1,267 mg/dL Final MPA Lambda, Serum Date Value Ref Range Status 08/19/2018 551 253 - 653 mg/dL Final MPA Cataract/Lambda Ratio Date Value Ref Range Status 08/19/2018 [...] DATE OF EXAM: Sep 23 2022 10:03AM [facility] 0804 - BD DXA - AXIAL SKELETON / PROCEDURE REASON: multiple diagnoses * * * * Physician Interpretation * * * * EXAMINATION: DXA BONE DENSITOMETRY BD DXA - AXIAL SKELETON PATIENT DEMOGRAPHICS: Age: 57 years, Race: , Gender: Male SCANNER INFORMATION: DXA Model: anchor.travel W [id number] SITE SCANNED: Lumbar spine and left hip [...] machine for accurate comparison. FOR MORE INFORMATION: [facility] Osteoporosis and Metabolic Bone Disease: www.ccf.org/arthritis/osteo National Osteoporosis Foundation: www.nof.org International Society of Clinical Densitometry www.iscd.org Supervisor Porcelain Department: [id number] Transcribe Date/Time: Sep 23 2022 10:28A Dictated [...] Z79.899 On sulfasalazine therapy K51.00 Ulcerative pancolitis ([facility]) Comment: On SSZ and Entyvio, managed by [...] in patient's severe chronic Rheumatoid Arthritis. His area cleaner has switched him to Humira as he [...] to receive intermittent steroid therapy from his area cleaner. Pharmacologic therapy is still indicated and recommended, [...] Also received labs per Primary care physician, Electric Motor And Generator Assembler -The patient's area cleaner follows him for his UC, anemia and liver tests. He is on Entyvio and sulfasalazine per his Electric Motor And Generator Assembler RA med: none from rheum, doing well on sulfasalazine, prescribed by GI (He was prev. on Enbrel 25 mg sq twice a week, or may switch to Humira if his area cleaner switched him to Humira TNF inhibitor therapy, [...] on sulfasalazine for his IBD per his area cleaner OP med: Received Reclast infusion, 5 mg IV on 05/09/2024 well tolerated Further infusions will be determined based on recheck DXA and CTX, or if on systemic steroids. As previously discussed, his OP med of choice is IV Reclast Oral bisphosphonate contraindicated due to his IBD and gastrointestinal disease. Osteoporosis was likely due to previous manager terminal steroid therapy by other physicians over the [...] atypical and subtroch. fracture of femur with manager terminal use of bisphosphonates/alendronate and anti-resorptive agents, [...] wished to proceed. Previous orders -CONSULT TO ALUMNI SECRETARY -CONSULT TO PODIATRY Provided referral to OT for assistive devices, exercises to preserve left function Referral to de icer kit assembler for foot/ankle deformities and callus care, inserts/braces/orthotics, [...] which included preparing to see the patient, emvv-zr-[id number] patient care, completing clinical documentation, obtaining and/or [...] appropriate immunization recommended. -Continued follow up with area cleaner for IBD management and monitoring for liver [...] Darrian Fischer MD Jose L Lackey MD [address] [place] [address] documented in this encounter [facility] 06-03-2024 Note Progress Note-Blake shell Patient: JAM TOSCANO Age: 59 years Sex: Male : 1965 Associated Diagnoses: None Author: Kody Ramos Jr., DO Postoperative Information Postoperative disposition: Postoperative disposition: Home. Optimetrix number: Optimetrix number [id number]. Anesthetic utilized: General. Physical Examination Vital Signs [...] Ambulatory Surgery Unit, and To home ). [facility] Comment on above: Result Comment: Elec tronically Signed By: Kody Ramos Jr., DO.sania\Date and Time Signed: 06/03/24 11:24 EDT 06-03-2024 [...] unsweetened, w/added ascorbic acid 1 cup 0.5 Coffee 1 cup 0.7 Vegetables Cooked Green beans 1 cup 4.0 Carrots 1/2 cup sliced 2.3 Peas 1 cup 8.8 Potato (baked, with skin) 1 medium potato 3.8 Raw [place] (with peel) 1 cucumber 1.5 Lettuce 1 [...] 8.7 Peanuts 1/2 cup 7.9 Chart from [facility] 2 (more content not included)... [facility] 06-03-2024 Note Colonoscopy Procedur e Report Patient: JAM TOSCANO Age: 59 years Sex: Male : 1965 Associated Diagnoses: None Author: Asim Jaquez MD Pre-Procedure Procedure Date 06/03/2024 10:42:00 . Procedure Type: Colonoscopy with removal of tumor(s), polyp(s), or other lesion(s) by cold snare technique. Procedure provider Performed by Asim Jaquez MD. Current history and physical Documented on chart. Colonoscopy ([id number]) on 02/26/2024 at 58 Years. Colonoscopy ([id number]) on 03/23/2023 at 57 Years. Cystoscopy ([id number]) on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 Xray showed Severe changes of chronic inflammatory arthritis, similar to prior. Left hand metallic foreign body. Did he injury his left hand prior ? Did he have eval on this prior if never eval I did place a consult to ortho documented in this encounter [facility] 04-12-2024 Telephone encounter Note Called [facility] dental [phone] currently at lunch - will call back after 1pm [facility] 04-11-2024 Telephone encounter Note Please call dentist for clearance for op med reclast [facility] dental [phone] Please also call patient Xray showed Severe changes of chronic inflammatory arthritis, similar to prior. Left hand metallic foreign body. Did he injury his left hand prior ? Did he have eval on this prior if never eval I did place a consult to ortho [facility] 03-14-2024 Note HNO ID: [id number] Author: CRESENCIO WHEELER RT(R) Service: ? Author [...] PATIENT PRESENTS WITH AN IMPLANTABLE OR ATTACHED MAGNETIC HEALER: No RADIOLOGY DEPARTMENT: General X-ray: Exam(s) Completed: Upper Extremity X-Ray(s): Hand, bilateral PERIPHERAL IV DATA: Not applicable SIGNED BY: RT Haim(R) March 14, 2024 11:[address] [facility] 03-14-2024 Instructions Nidia Weston APRN.FIELD SALES REPRESENTATIVE - 03/14/2024 9:57 AM EDT -PLEASE NOTE THAT WE REVIEW ALL YOUR TEST RESULTS AT YOUR NEXT FOLLOW UP VISIT WITH YOU. IF ANY ABNORMAL LAB REQUIRES SOONER ATTENTION, WE WILL CONTACT YOU. -If you have signed up on Muchasahart, we will release your test results through SlamData. I wish you the best of health [...] and sulfasalazine, but discuss first with your area cleaner. Supplements recommended Vitamin B12: 500 to 1000 [...] track your nutrition and calcium intake on www.[employer] This provides macro and micronutrient intake and requirements. - You can track your calcium intake on [employer] or any other calcium tracker of your [...] now for a cost, such as at www.Snapfish. -When eating a whole food plant based [...] that features the Whole Plant Based diet, Sherwood over knives (see video online and visit website). Another movie that was recently released is: Eating You Alive (you can find it at Attention Point) and The [employer] movie Dr. Fauzia Ansari is a [facility] physician who is an expert in Whole Plant based diet. His website is nkf-pharma. His research highlights the benefits of the Whole food plant based diet in reversing and preventing heart disease. Mrs. Ansari (his ) has a cookbook with many recipes on whole plant based food: The Prevent and Reverse Heart Disease cookbook. You can also consider reading his son, Eze Ansari's book: The Engine 2 cookbook Eze is a retired quantitative researcher who has helped many people get healthier [...] multiple free videos and YouTube, for example: https://youtu.be/phcShyzF8s0 , https://youtu.be/BrMFSrgpl7n He has written multiple books, including Power [...] heart disease, acne, and other, his website: www.debra.[facility] Dr. Yayo Allred is a renowned forensic scientist, who has studied and researched the benefits of the Whole plant based diet. He has also researched the adverse effects of animal proteins on health. He presents many of his research findings in his book The [place] study. Dr. Gerber Becker has completed many research trials proving the reversal of diseases, such as heart disease and early prostate cancer, with healthy lifestyle and the Whole Plant based diet. Dr. Gerber Becker website is: www.alvaroBrandFiesta.[facility] His new book: Undo It, has evidence based information and guide to following this healthy lifestyle. Dr. Cody Dillon has dedicated a website and additional time to reviewing all food related articles and research and presents them in his power point presentation and on his website at: nutritionfacts.org which is all free. Dr. Dillon has multiple free videos and YouTube, for example https://[employer].be/aSgNkhgVtks and https://[employer].be/lXXXygDRyBU. He has written multiple books including: How Not To and How Not To Diet He is now working on his next book: How Not To Age Dr. Danitza Dash (from the [facility]), has articles on the following website: Saavn.[facility] Also, you could find additional information on practical to follow recipes by reading or watching online and YouTube such as: Certified Technician AJ, Cooking With Plants, The Vegan Corner (recipes from an [place] Certified Technician), The Whole Foods Plant Based Cooking Show and visiting the provided websites for additional information on the whole plant based benefit and cooking recipes. You can also consider watching the vlogs of some of the plant based Athletes such as Fausto Ewing Derek on Soundl.ly Nutrition. Dr. Maryan Holguin (a psychiatrist who [...] - Gentle Yoga Anyone Can Do Anywhere www.[employer]/yoga Also on youtube: yoga with Karlie 3- [...] or a higher dose. Raw: Garlic, Cilantro, [place] nuts, Pumpkin seeds, Keswick seeds and Flax seed powder have been reported to help with certain metal detoxification such as mercury. Butler-3 plant based rich foods are good anti-inflammatory [...] the Whole Plant Based Diet, by watching Sherwood over [employer] movie and then review website. There are many other resources and educational information on the Whole plant based diet on the Internet and documentaries. There are other resources for wellness that you can also benefit from, such as the [facility] Wellness website, [facility] and includes Plant based and Mediterranean diet, yoga and meditation. Please avoid all dairy products. You could use non-dairy milk such as Flax milk, Cashew milk, [place] milk, Rice milk, Oat milk or Hemp [...] Osteoporosis Foundation) http://www.osteo.org/osteolinks.asp National Institutes of Health: 4-304-674-BONE The Calcium Information Center: -Non-Dairy, Plant based Milk, can contain in1 glass up to 450 mg of calcium (300 to 450 mg) Exampled include Oat Milk, Flax Milk, [place] Milk, Cashew Milk, Soy Milk, Peas Milk general health and well being Examples of Food Sources of Calcium from NIH Food Milligrams (mg) per serving Percent DV* Soymilk, calcium-fortified, 8 ounces 299 30 Coffee juice, calcium-fortified, 6 ounces 261 26 Tofu, firm, made with calcium sulfate, cup* 253 25 Tofu, soft, made with calcium sulfate, cup* 138 14 Cohmw-qj-zlx cereal, calcium-fortified, 1 cup 100-1,000 10-100 Turnip greens, fresh, boiled, cup 99 10 Kale, raw, chopped, 1 cup 100 10 Kale, fresh, cooked, 1 cup 94 9 Turkmen cabbage, bok marin, raw, shredded, 1 cup 74 7 Bread, white, 1 slice 73 7 Tortilla, corn, hxlhc-zp-yyqd/marshall, one 6 diameter 46 5 Tortilla, flour, atfwh-oz-oisx/marshall, one 6 diameter 32 3 Bread, whole-wheat, [...] daily with a meal; Certain patients require 4772-8184 iu daily and in patients deficient in [...] bones. Studies show approximately 50% of [place] men and women are vitamin D deficient [...] from: www.nof.org (the national osteoporosis foundation) http://www.[facility].org/arthgabriella is/osteo/info.htm http://ods.od.nih.gov/factsheets/vitam ind.asp National Institutes of Health: 7-215-227-BONE The Calcium Information [place]: Review of Osteoporosis medications Medications that prevent [...] atypical and subtroch. fracture of femur with manager terminal use of bisphosphonates/alendronate and anti-resorptive agents, [...] and answer all OP questions. At the [facility], we work as a team for your care, along with Nurse Practitioners, Physician Assistants, Nurses and Medical Assistants. It is a privilege and honor to serve you. Thank you for choosing [facility] for your healthcare. Sincerely, Nidia Weston APRN.FIELD SALES REPRESENTATIVE documented in this encounter [facility] 03-14-2024 History of [...] or invasive procedures No dental concerns [facility] dental [phone] No serious infections or fevers Stopped celebrex [...] in patient's severe chronic Rheumatoid Arthritis. His area cleaner has switched him to Humira as he [...] IBD and intermittent steroid therapy from his area cleaner. Pharmacologic therapy is still indicated and recommended, [...] if necessary, CC, NOF and ISCD and [facility]. PLAN: Labs in 1 month Reclast at [...] and sulfasalazine, but discuss first with your area cleaner. Supplements recommended Vitamin B12: 500 to 1000 [...] which included preparing to see the patient, fghf-od-twyo patient care, completing clinical documentation, obtaining and/or [...] the care of your patient. Nidia Weston APRN.FIELD SALES REPRESENTATIVE cc Jose L Lackey MD, MD Patient Instructions -PLEASE NOTE THAT WE REVIEW ALL YOUR TEST RESULTS AT YOUR NEXT FOLLOW UP VISIT WITH YOU. IF ANY ABNORMAL LAB REQUIRES SOONER ATTENTION, WE WILL CONTACT YOU. -If you have signed up on SlamData, we will release your test results through SlamData. I wish you the best of health [...] and sulfasalazine, but discuss first with your area cleaner. Supplements recommended Vitamin B12: 500 to 1000 [...] track your nutrition and calcium intake on www.[employer] This provides macro and micronutrient intake and requirements. - You can track your calcium intake on Virtusize or any other calcium tracker of your [...] now for a cost, such as at www.Snapfish. -When eating a whole food plant based [...] track your nutrition and calcium intake on www.SOMA Barcelonaometer.com This provides macro and micronutrient intake and [...] that features the Whole Plant Based diet, Sherwood over knives (see video online and visit website). Another movie that was recently released is: Eating You Alive (you can find it at Attention Point) and The [employer] movie Dr. Fauzia Ansari is a [facility] physician who is an expert in Whole Plant based diet. His website is nkf-pharma. His research highlights the benefits of the Whole food plant based diet in reversing and preventing heart disease. Mrs. Ansari (his ) has a cookbook with many recipes on whole plant based food: The Prevent and Reverse Heart Disease cookbook. You can also consider reading his son, Eze Ansari's book: The Engine 2 cookbook Eze is a retired quantitative researcher who has helped many people get healthier [...] multiple free videos and YouTube, for example: https://youtu.be/jmyKaddG4c8 , https://youtu.be/PyNDCethi1d He has written multiple books, including Power vmock.com for the Brain, The Cheese Trap, Dr. Rock Velazco's Program for Reversing Diabetes, Your Body in Balance Dr. Anthony Carlson has shown the benefit of a starch based whole food plant based diet to his Rheumatoid Arthritis patients, as well as patient with diabetes II, hypertension, obesity, multiple sclerosis, heart disease, acne, and other, his website: www.debra.[facility] Dr. Yayo Allred is a renowned forensic scientist, who has studied and researched the benefits of the Whole plant based diet. He has also researched the adverse effects of animal proteins on health. He presents many of his research findings in his book The [place] study. Dr. Gerber Becker has completed many research trials proving the reversal of diseases, such as heart disease and early prostate cancer, with healthy lifestyle and the Whole Plant based diet. Dr. Gerber Becker website is: www.carmenCrossbar.[facility] His new book: Undo It, has evidence based information and guide to following this healthy lifestyle. Dr. Cody Dillon has dedicated a website and additional time to reviewing all food related articles and research and presents them in his power point presentation and on his website at: nutritionfacts.org which is all free. Dr. Dillon has multiple free videos and YouTube, for example https://youtagUinu.be/aSgNkhgVtks and https://youOKCoin.be/lXXXygDRyBU. He has written multiple books including: How Not To and How Not To Diet He is now working on his next book: How Not To Age Dr. Danitza Dash (from the [facility]), has articles on the following website: Saavn.[facility] Also, you could find additional information on practical to follow recipes by reading or watching online and YouTube such as: Certified Technician AJ, Cooking With Plants, The Vegan Corner (recipes from an [place] Certified Technician), The Whole Foods Plant Based Cooking Show and visiting the provided websites for additional information on the whole plant based benefit and cooking recipes. You can also consider watching the vlogs of some of the plant based Athletes such as Fausto Ewing Derek on Soundl.ly Nutrition. Dr. Maryan Holguin (a psychiatrist who [...] - Gentle Yoga Anyone Can Do Anywhere www.[employer]/yoga Also on youtube: yoga with Karlie 3- [...] or a higher dose. Raw: Garlic, Cilantro, [place] nuts, Pumpkin seeds, Keswick seeds and Flax seed powder have been reported to help with certain metal detoxification such as mercury. Butler-3 plant based rich foods are good anti-inflammatory [...] the Whole Plant Based Diet, by watching Sherwood over [employer] movie and then review website. There are many other resources and educational information on the Whole plant based diet on the Internet and documentaries. There are other resources for wellness that you can also benefit from, such as the [facility] Wellness website, [facility] and includes Plant based and Mediterranean diet, yoga and meditation. Please avoid all dairy products. You could use non-dairy milk such as Flax milk, Cashew milk, [place] milk, Rice milk, Oat milk or Hemp [...] Osteoporosis Foundation) http://www.osteo.org/osteolinks.asp National Institutes of Health: 3-233-797-BONE The Calcium Information Center: -Non-Dairy, Plant based Milk, can contain in1 glass up to 450 mg of calcium (300 to 450 mg) Exampled include Oat Milk, Flax Milk, [place] Milk, Cashew Milk, Soy Milk, Peas Milk general health and well being Examples of Food Sources of Calcium from [facility] Food Milligrams (mg) per serving Percent DV* Soymilk, calcium-fortified, 8 ounces 299 30 Coffee juice, calcium-fortified, 6 ounces 261 26 Tofu, firm, made with calcium sulfate, cup* 253 25 Tofu, soft, made with calcium sulfate, cup* 138 14 Viynm-hn-uxk cereal, calcium-fortified, 1 cup 100-1,000 10-100 Turnip greens, fresh, boiled, cup 99 10 Kale, raw, chopped, 1 cup 100 10 Kale, fresh, cooked, 1 cup 94 9 Turkmen cabbage, bok marin, raw, shredded, 1 cup 74 7 Bread, white, 1 slice 73 7 Tortilla, corn, lmytb-uw-mzxh/marshall, one 6 diameter 46 5 Tortilla, flour, irzof-vz-pojf/marshall, one 6 diameter 32 3 Bread, whole-wheat, [...] daily with a meal; Certain patients require 1350-1716 iu daily and in patients deficient in [...] bones. Studies show approximately 50% of [place] men and women are vitamin D deficient [...] is/osteo/info.htm http://ods.od.nih.gov/factsheets/vitam ind.asp National Institutes of Health: 4-062-331-BONE The Calcium Information [place]: Review of Osteoporosis medications Medications that prevent [...] atypical and subtroch. fracture of femur with manager terminal use of bisphosphonates/alendronate and anti-resorptive agents, [...] and answer all OP questions. At the [facility], we work as a team for your care, along with Nurse Practitioners, Physician Assistants, Nurses and Medical Assistants. It is a privilege and honor to serve you. Thank you for choosing [facility] for your healthcare. Sincerely, Nidia Weston APRN.FIELD SALES REPRESENTATIVE PAST MEDICAL HISTORY Diagnosis Date Monoclonal gammopathy [...] developed and its performance characteristics determined by [facility]'s [facility] Pathology and Laboratory Medicine [place] ([facility] It has not been cleared or approved by the FDA. -[facility] is regulated under CLIA as qualified [...] 147 53 - 334 mg/dL Final MPA Cataract, Serum Date Value Ref Range Status 08/19/2018 1,020 534 - 1,267 mg/dL Final MPA Lambda, Serum Date Value Ref Range Status 08/19/2018 551 253 - 653 mg/dL Final MPA Cataract/Lambda Ratio Date Value Ref Range Status 08/19/2018 [...] DATE OF EXAM: Sep 23 2022 10:03AM LN 0804 - DXA - AXIAL SKELETON / PROCEDURE REASON: multiple diagnoses * * * * Physician Interpretation * * * * EXAMINATION: DXA BONE DENSITOMETRY BD DXA - AXIAL SKELETON PATIENT DEMOGRAPHICS: Age: 57 years, Race: , Gender: Male SCANNER INFORMATION: DXA Model: anchor.travel W [id number] SITE SCANNED: Lumbar spine and left hip [...] machine for accurate comparison. FOR MORE INFORMATION: [facility] for Osteoporosis and Metabolic Bone Disease: www.ccf.org/arthritis/osteo National Osteoporosis Foundation: www.nof.org International Society of Clinical Densitometry www.iscd.org Supervisor Porcelain Department: [id number] Transcribe Date/Time: Sep 23 2022 10:28A Dictated by : DARRIAN DUBON MD This examination was interpreted and the report reviewed and electronically signed by: DARRIAN DUBON MD on Sep 28 2022 6:46PM EST documented in this encounter [facility] 03-14-2024 Note HNO ID: [id number] Author: NIDIA WESTON APRN.JOSE Service: ? Author [...] or invasive procedures No dental concerns [facility] dental [phone] No serious infections or fevers Stopped celebrex [...] and counseling Per (more content not included)... [facility] 02-29-2024 Note [id number]#1.00TIFF [facility] 02-16-2024 Miscellaneous Notes Spoke with [...] Abs Lymph 1.00 - 4.00 k/uL 1.84 Bannock% % 7.3 Abs [place] <0.87 k/uL 0.59 Eosin% % 0.1 Abs [...] U/L 211 (H) [facility] [facility] 05-05-2023 Miscellaneous Notes Faxed dental clearance letter to [facility] [phone]. LMOM for patient to call the office to schedule follow up in about 2 months (around 07/04/2023), or labs at least 1 week prior, for ov and reclast in 2-3 months , please precert. Please warn transfer to the [facility] center CC chart send: Return in about 2 months (around 07/04/2023), or labs at least 1 week prior, for ov and reclast in 2-3 months , please precert. Please schedule as requested. Anais Pate May 04, 2023 3:18 PM Spoke with Reggie at [facility], Letter can be faxed to Dr Mil Farrell for signing at [phone]. Please call for dental clearance All procedures complete, infection free, no upcoming dental procedure and ok with dentist prior to reclast If they need a letter may make one for them to send back [facility] [phone] documented in this encounter [facility] 05-04-2023 Instructions Nidia Weston APRN.CNP - 05/04/2023 12:16 PM EDT -PLEASE NOTE THAT WE REVIEW ALL YOUR TEST RESULTS AT YOUR NEXT FOLLOW UP VISIT WITH YOU. IF ANY ABNORMAL LAB REQUIRES SOONER ATTENTION, WE WILL CONTACT YOU. -If you have signed up on SlamData, we will release your test results through SlamData. I wish you the best of health [...] and sulfasalazine, but discuss first with your area cleaner. Supplements recommended Vitamin B12: 500 to 1000 [...] track your nutrition and calcium intake on www.[employer].[facility] This provides macro and micronutrient intake and requirements. - You can track your calcium intake on [place] [employer] or any other calcium tracker of your [...] now for a cost, such as at www.Snapfish. -When eating a whole food plant based [...] track your nutrition and calcium intake on www.[place] [place] [employer].[facility] This provides macro and micronutrient intake and [...] that features the Whole Plant Based diet, Sherwood over knives (see video online and visit website). Another movie that was recently released is: Eating You Alive (you can find it at Attention Point) and The Compositence Changers movie Dr. Fauzia Ansari is a [facility] physician who is an expert in Whole Plant based diet. His website is nkf-pharma. His research highlights the benefits of the Whole food plant based diet in reversing and preventing heart disease. Mrs. Ansari (his ) has a cookbook with many recipes on whole plant based food: The Prevent and Reverse Heart Disease cookbook. You can also consider reading his son, Eze Ansari's book: The Engine 2 cookbook Eze is a retired quantitative researcher who has helped many people get healthier [...] multiple free videos and YouTube, for example: https://youtu.be/mvuUztlP1i0 , https://youtu.be/ZlLBHngjk9j He has written multiple books, including Power vmock.com for the Brain, The Cheese Trap, Dr. Rock Velazco's Program for Reversing Diabetes, Your Body in Balance Dr. Anthony Carlson has shown the benefit of a starch based whole food plant based diet to his Rheumatoid Arthritis patients, as well as patient with diabetes II, hypertension, obesity, multiple sclerosis, heart disease, acne, and other, his website: www.Lattice Enginesl.[facility] Dr. Yayo Allred is a renowned forensic scientist, who has studied and researched the benefits of the Whole plant based diet. He has also researched the adverse effects of animal proteins on health. He presents many of his research findings in his book The [place] study. Dr. Gerber Becker has completed many research trials proving the reversal of diseases, such as heart disease and early prostate cancer, with healthy lifestyle and the Whole Plant based diet. Dr. Gerber Becker website is: www.carmenCrossbar.[facility] His new book: Undo It, has evidence [...] videos and YouTube, for example https://youtu.be/aSgNkhgVtks and https://youtagUinu.be/lXXXygDRyBU. He has written multiple books including: How Not To and How Not To Diet He is now working on his next book: How Not To Age Dr. Danitza Dash (from the [facility]), has articles on the following website: Saavn.[facility] Also, you could find additional information on practical to follow recipes by reading or watching online and YouTube such as: Chef BELLE, Cooking With Plants, The Vegan Corner (recipes from an [place] Certified Technician), The Whole Foods Plant Based Cooking Show and visiting the provided websites for additional information on the whole plant based benefit and cooking recipes. You can also consider watching the vlogs of some of the plant based Athletes such as Fausto Ewing Derek on Spaces [address] Dr[address] Maryan Holguin (a psychiatrist who suffered [...] - Gentle Yoga Anyone Can Do Anywhere www.Modebo.[facility]/yoga Also on youtube: yoga with Karlie 3- [...] or a higher dose. Raw: Garlic, Cilantro, [place] nuts, Pumpkin seeds, Keswick seeds and Flax seed powder have been reported to help with certain metal detoxification such as mercury. Butler-3 plant based rich foods are good anti-inflammatory [...] the Whole Plant Based Diet, by watching Sherwood over [employer] movie and then review website. There are many other resources and educational information on the Whole plant based diet on the Internet and documentaries. There are other resources for wellness that you can also benefit from, such as the [facility] Wellness website, [facility] and includes Plant based and Mediterranean diet, yoga and meditation. Please avoid all dairy products. You could use non-dairy milk such as Flax milk, Cashew milk, [place] milk, Rice milk, Oat milk or Hemp [...] following resources: www.nof.org (National Osteoporosis Foundation) http://www.osteo.org/osteolinks.asp [place] Institutes of [facility]: 7-889-063-BONE [facility] Calcium Information [place]: -Non-Dairy, Plant based Milk, can contain in1 glass up to 450 mg of calcium (300 to 450 mg) Exampled include Oat Milk, Flax Milk, [place] Milk, Cashew Milk, Soy Milk, Peas Milk general health and well being Examples of Food Sources of Calcium from [facility] Food Milligrams (mg) per serving Percent DV* Soymilk, calcium-fortified, 8 ounces 299 30 Coffee juice, calcium-fortified, 6 ounces 261 26 Tofu, firm, made with calcium sulfate, cup* 253 25 Tofu, soft, made with calcium sulfate, cup* 138 14 Yhvij-id-jlu cereal, calcium-fortified, 1 cup 100-1,000 10-100 Turnip greens, fresh, boiled, cup 99 10 Kale, raw, chopped, 1 cup 100 10 Kale, fresh, cooked, 1 cup 94 9 Turkmen cabbage, bok marin, raw, shredded, 1 cup 74 7 Bread, white, 1 slice 73 7 Tortilla, corn, athoq-zu-fxoo/mrashall, one 6 diameter 46 5 Tortilla, flour, gprga-es-ugwu/marshall, one 6 diameter 32 3 Bread, whole-wheat, [...] daily with a meal; Certain patients require 7916-8215 iu daily and in patients deficient in [...] bones. Studies show approximately 50% of [place] men and women are vitamin D deficient [...] from: www.nof.org (the national osteoporosis foundation) http://www.[facility].org/leesa storm/osteo/info.htm http://ods.od.nih.gov/factsheets/vitam ind.asp National Institutes of Health: 4-804-825-BONE [facility] Calcium Information [place]: At the [facility], we work as a team for your care, along with Nurse Practitioners, Physician Assistants, Nurses and Medical Assistants. It is a privilege and honor to serve you. Thank you for choosing [facility] for your healthcare. Sincerely, Nidia Weston APRN.FIELD SALES REPRESENTATIVE documented in this encounter [facility] 05-04-2023 History of [...] fitting denture 09/09 [facility] [phone] GI - colitis 03/23 Had colonoscopy - [...] diagnosis) Z71.2 Encounter to discuss test results Z71. Counseling on health promotion and disease [...] in patient's severe chronic Rheumatoid Arthritis. His area cleaner has switched him to Humira as he [...] IBD and intermittent steroid therapy from his area cleaner. Pharmacologic therapy is still indicated and recommended, [...] if necessary, CC, NOF and ISCD and [facility]. PLAN: [facility] on 05/04/23 VITAMIN D 25 HYDROXY RENAL FUNCTION PANEL MONOCLONAL PROT UR W/INTERP Labs prior to next visit Reclast - You are on entyvio and sulfasalazine for your Ulcerative Colitis. These are also treating your Rheumatoid Arthritis. During infections you will need to hold the entyvio and sulfasalazine, but discuss first with your area cleaner. Supplements recommended Vitamin B12: 500 to 1000 [...] looked into transition therapy. Recent study from [facility] Slim et al, 04/11/2020, reported one [...] initiated in patients who have had an SD or stroke in the preceding year. This [...] atypical and subtroch. fracture of femur with manager terminal use of bisphosphonates/alendronate and anti-resorptive agents, [...] the care of your patient. Nidia Weston APRN.[facility] Jose L Lackey MD, MD Patient Instructions -PLEASE NOTE THAT WE REVIEW ALL YOUR TEST RESULTS AT YOUR NEXT FOLLOW UP VISIT WITH YOU. IF ANY ABNORMAL LAB REQUIRES SOONER ATTENTION, WE WILL CONTACT YOU. -If you have signed up on SlamData, we will release your test results through SlamData. I wish you the best of health [...] and sulfasalazine, but discuss first with your area cleaner. Supplements recommended Vitamin B12: 500 to 1000 [...] track your nutrition and calcium intake on www.[employer] This provides macro and micronutrient intake and requirements. - You can track your calcium intake on SOMA Barcelonaometer.[facility] or any other calcium tracker of your [...] now for a cost, such as at www.Snapfish. -When eating a whole food plant based [...] that features the Whole Plant Based diet, Sherwood over knives (see video online and visit website). Another movie that was recently released is: Eating You Alive (you can find it at Attention Point) and The Compositence [employer] movie Dr. Fauzia Ansari is a [facility] physician who is an expert in Whole Plant based diet. His website is nkf-pharma. His research highlights the benefits of the Whole food plant based diet in reversing and preventing heart disease. Mrs. Ansari (his ) has a cookbook with many recipes on whole plant based food: The Prevent and Reverse Heart Disease cookbook. You can also consider reading his son, Eze Ansari's book: The Engine 2 cookbook Eze is a retired quantitative researcher who has helped many people get healthier [...] multiple free videos and YouTube, for example: https://youtu.be/ijhTrslP0r2 , https://youtu.be/UvXGVzejy7m He has written multiple books, including Power [...] heart disease, acne, and other, his website: www.debra.[facility] Dr. Yayo Allred is a renowned forensic scientist, who has studied and researched the benefits of the Whole plant based diet. He has also researched the adverse effects of animal proteins on health. He presents many of his research findings in his book The [place] study. Dr. Gerber Becker has completed many research trials proving the reversal of diseases, such as heart disease and early prostate cancer, with healthy lifestyle and the Whole Plant based diet. Dr. Gerber Becker website is: www.carmenCrossbar.[facility] His new book: Undo It, has evidence based information and guide to following this healthy lifestyle. Dr. Cody Dillon has dedicated a website and additional time to reviewing all food related articles and research and presents them in his power point presentation and on his website at: nutritionfacts.org which is all free. Dr. Dillon has multiple free videos and YouTube, for example https://WSC Group.be/aSgNkhgVtks and https://WSC Group.be/lXXXygDRyBU. He has written multiple books including: How Not To and How Not To Diet He is now working on his next book: How Not To Age Dr. Danitza Dash (from the [facility]), has articles on the following website: Saavn.[facility] Also, you could find additional information on practical to follow recipes by reading or watching online and YouTube such as: Certified Technician AJ, Cooking With Plants, The Vegan Corner (recipes from an [place] Certified Technician), The Whole Foods Plant Based Cooking Show and visiting the provided websites for additional information on the whole plant based benefit and cooking recipes. You can also consider watching the vlogs of some of the plant based Athletes such as Fausto Ewing Derek on Soundl.ly Nutrition. Dr. Maryan Holguin (a psychiatrist who [...] - Gentle Yoga Anyone Can Do Anywhere www.[employer]/yoga Also on youtube: yoga with Karlie 3- [...] or a higher dose. Raw: Garlic, Cilantro, [place] nuts, Pumpkin seeds, Keswick seeds and Flax seed powder have been reported to help with certain metal detoxification such as mercury. Butler-3 plant based rich foods are good anti-inflammatory [...] the Whole Plant Based Diet, by watching Sherwood over Al[employer] movie and then review website. There are many other resources and educational information on the Whole plant based diet on the Internet and documentaries. There are other resources for wellness that you can also benefit from, such as the [facility] Wellness website, [facility] and includes Plant based and Mediterranean diet, yoga and meditation. Please avoid all dairy products. You could use non-dairy milk such as Flax milk, Cashew milk, [place] milk, Rice milk, Oat milk or Hemp [...] Osteoporosis Foundation) http://www.osteo.org/osteolinks.asp National Institutes of Health: 2-231-640-BONE The Calcium Information Center: -Non-Dairy, Plant based Milk, can contain in1 glass up to 450 mg of calcium (300 to 450 mg) Exampled include Oat Milk, Flax Milk, [place] Milk, Cashew Milk, Soy Milk, Peas Milk general health and well being Examples of Food Sources of Calcium from NIH Food Milligrams (mg) per serving Percent DV* Soymilk, calcium-fortified, 8 ounces 299 30 Coffee juice, calcium-fortified, 6 ounces 261 26 Tofu, firm, made with calcium sulfate, cup* 253 25 Tofu, soft, made with calcium sulfate, cup* 138 14 Wvvno-rz-dxc cereal, calcium-fortified, 1 cup 100-1,000 10-100 Turnip greens, fresh, boiled, cup 99 10 Kale, raw, chopped, 1 cup 100 10 Kale, fresh, cooked, 1 cup 94 9 Turkmen cabbage, bok marin, raw, shredded, 1 cup 74 7 Bread, white, 1 slice 73 7 Tortilla, corn, fjfdz-zp-ihti/marshall, one 6 diameter 46 5 Tortilla, flour, wmmke-rv-lqot/marshall, one 6 diameter 32 3 Bread, whole-wheat, [...] daily with a meal; Certain patients require 5155-3414 iu daily and in patients deficient in [...] bones. Studies show approximately 50% of [place] men and women are vitamin D deficient [...] is/osteo/info.htm http://ods.od.nih.gov/factsheets/vitam ind.asp National Institutes of Health: 9-216-356-BONE [facility] Calcium Information [place]: At the [facility], we work as a team for your care, along with Nurse Practitioners, Physician Assistants, Nurses and Medical Assistants. It is a privilege and honor to serve you. Thank you for choosing [facility] for your healthcare. Sincerely, Nidia Weston APRN.FIELD SALES REPRESENTATIVE PAST MEDICAL HISTORY Diagnosis Date Monoclonal gammopathy [...] in am, 3 noon, 2 pm), per area cleaner No current facility-administered medications for this visit. [...] developed and its performance characteristics determined by [facility] [place] [facility] It has not been cleared or approved by the FDA. -[facility] is regulated under CLIA as qualified [...] 147 53 - 334 mg/dL Final MPA Cataract, Serum Date Value Ref Range Status 08/19/2018 1,020 534 - 1,267 mg/dL Final MPA Lambda, Serum Date Value Ref Range Status 08/19/2018 551 253 - 653 mg/dL Final MPA Cataract/Lambda Ratio Date Value Ref Range Status 08/19/2018 [...] , Gender: Male SCANNER INFORMATION: DXA Model: anchor.travel W [id number] SITE SCANNED: Lumbar spine and left hip [...] International Society of Clinical Densitometry www.[email or web address] Supervisor Porcelain Department: [id number] Transcribe Date/Time: Sep 23 2022 10:28A Dictated by : DARRIAN DUBON MD This examination was interpreted and the report reviewed and electronically signed by: DARRIAN DUBON MD on Sep 28 2022 6:46PM EST documented in this encounter [facility] 03-02-2023 Instructions Nidia Weston APRN.JOSE - 03/02/2023 11:10 AM EDT -PLEASE NOTE THAT WE REVIEW ALL YOUR TEST RESULTS AT YOUR NEXT FOLLOW UP VISIT WITH YOU. IF ANY ABNORMAL LAB REQUIRES SOONER ATTENTION, WE WILL CONTACT YOU. -If you have signed up on Muchasahart, we will release your test results through SlamData. I wish you the best of health [...] and sulfasalazine, but discuss first with your area cleaner. Supplements recommended Vitamin B12: 500 to 1000 [...] track your nutrition and calcium intake on www.Virtusize This provides macro and micronutrient intake and requirements. - You can track your calcium intake on Virtusize or any other calcium tracker of your [...] now for a cost, such as at www.Snapfish. -When eating a whole food plant based [...] that features the Whole Plant Based diet, Sherwood over knives (see video online and visit website). Another movie that was recently released is: Eating You Alive (you can find it at Attention Point) and The Game Changers movie Dr. Fauzia Ansari is a [facility] physician who is an expert in Whole Plant based diet. His website is nkf-pharma. His research highlights the benefits of the Whole food plant based diet in reversing and preventing heart disease. Mrs. Ansari (his ) has a cookbook with many recipes on whole plant based food: The Prevent and Reverse Heart Disease cookbook. You can also consider reading his son, Eze Ansari's book: The Engine 2 cookbook Eze is a retired quantitative researcher who has helped many people get healthier by following the whole food plant based diet. Dr. Rock Velazco, has a website and free angélica to help get started on a whole plant based diet, at www.College Snack Attack.org and you can log on for free for his 21-Day Kickstart with meals and recipes to follow for 21 days. There is also a free angélica for that. He has multiple free videos and YouTube, for example: https://youtagUinu.be/[email or web address] , https://youtagUinu.be/[email or web address] He has written multiple books, including Sikernes Risk Management for the Brain, The Cheese Trap, Dr. Rock Velazco's Program for Reversing Diabetes, Your Body in Balance Dr. Anthony Carlson has shown the benefit of a starch based whole food plant based diet to his Rheumatoid Arthritis patients, as well as patient with diabetes II, hypertension, obesity, multiple sclerosis, heart disease, acne, and other, his website: www.magnoliaMy Top 10l.[facility] Dr. Yayo Allred is a renowned forensic scientist, who has studied and researched the benefits of the Whole plant based diet. He has also researched the adverse effects of animal proteins on health. He presents many of his research findings in his book The [place] study. Dr. Gerber Becker has completed many research trials proving the reversal of diseases, such as heart disease and early prostate cancer, with healthy lifestyle and the Whole Plant based diet. Dr. Gerber Becker website is: www.carmenCrossbar.[facility] His new book: Undo It, has evidence based information and guide to following this healthy lifestyle. Dr. Cody Dillon has dedicated a website and additional time to reviewing all food related articles and research and presents them in his power point presentation and on his website at: nutritionfacts.org which is all free. Dr. Dillon has multiple free videos and YouTube, for example https://youtagUinu.be/aSgNkhgVtks and https://[email or web address]/lXXXygDRyBU. He has written multiple books including: How Not To and How Not To Diet He is now working on his next book: How Not To Age Dr. Danitza Dash (from the [facility]), has articles on the following website: [employer] Also, you could find additional information on practical to follow recipes by reading or watching online and YouTube such as: Certified Technician AJ, Cooking With Plants, The Vegan Corner (recipes from an [place] Certified Technician), The Whole Foods Plant Based Cooking Show and visiting the provided websites for additional information on the whole plant based benefit and cooking recipes. You can also consider watching the vlogs of some of the plant based Athletes such as Fausto Ewing Derek on Spaces [address] Dr[address] Maryan Holguin (a psychiatrist who suffered [...] - Gentle Yoga Anyone Can Do Anywhere www.Modebo.[facility]/yoga Also on youtube: yoga with Karlie 3- [...] or a higher dose. Raw: Garlic, Cilantro, [place] nuts, Pumpkin seeds, Keswick seeds and Flax seed powder have been reported to help with certain metal detoxification such as mercury. Butler-3 plant based rich foods are good anti-inflammatory [...] the Whole Plant Based Diet, by watching Sherwood over Al[employer] movie and then review website. There are many other resources and educational information on the Whole plant based diet on the Internet and documentaries. There are other resources for wellness that you can also benefit from, such as the [facility] Wellness website, [facility] and includes Plant based and Mediterranean diet, yoga and meditation. Please avoid all dairy products. You could use non-dairy milk such as Flax milk, Cashew milk, [place] milk, Rice milk, Oat milk or Hemp [...] following resources: www.nof.org (National Osteoporosis Foundation) http://www.osteo.org/osteolinks.asp [facility]: 1-990-406-BONE The Calcium Information [place]: -Non-Dairy, Plant based Milk, can contain in1 glass up to 450 mg of calcium (300 to 450 mg) Exampled include Oat Milk, Flax Milk, [place] Milk, Cashew Milk, Soy Milk, Peas Milk general health and well being Examples of Food Sources of Calcium from [facility] Food Milligrams (mg) per serving Percent DV* Soymilk, calcium-fortified, 8 ounces 299 30 Coffee juice, calcium-fortified, 6 ounces 261 26 Tofu, firm, made with calcium sulfate, cup* 253 25 Tofu, soft, made with calcium sulfate, cup* 138 14 Ocdiq-hr-kdb cereal, calcium-fortified, 1 cup 100-1,000 10-100 Turnip greens, fresh, boiled, cup 99 10 Kale, raw, chopped, 1 cup 100 10 Kale, fresh, cooked, 1 cup 94 9 Turkmen cabbage, bok marin, raw, shredded, 1 cup 74 7 Bread, white, 1 slice 73 7 Tortilla, corn, rwwfq-fw-wisz/marshall, one 6 diameter 46 5 Tortilla, flour, zspxt-lp-enmo/marshall, one 6 diameter 32 3 Bread, whole-wheat, [...] daily with a meal; Certain patients require 6471-2277 iu daily and in patients deficient in [...] bones. Studies show approximately 50% of [place] men and women are vitamin D deficient [...] national osteoporosis foundation) http://www.[facility].org/arthrit is/osteo/info.htm http://ods.od.nih.gov/factsheets/vitam ind.asp [place] Institutes of Health: 0-502-068-BONE The Calcium Information [place]: At the [facility], we work as a team for your care, along with Nurse Practitioners, Physician Assistants, Nurses and Medical Assistants. It is a privilege and honor to serve you. Thank you for choosing [facility] for your healthcare. Sincerely, Nidia Weston APRN.JOSE documented in this encounter [facility] 03-02-2023 History of [...] in patient's severe chronic Rheumatoid Arthritis. His area cleaner has switched him to Humira as he [...] IBD and intermittent steroid therapy from his area cleaner. Pharmacologic therapy is still indicated and recommended, [...] if necessary, CC, NOF and ISCD and [facility]. PLAN: No orders found for this visit on 03/02/23. Please continue on yout Vitamin D 5000 international units once daily with meals and your multivitamin - You are on Humira and sulfasalazine for your Ulcerative Colitis. These are also treating your Rheumatoid Arthritis. During infections you will need to hold the Humira and sulfasalazine, but discuss first with your area cleaner. Supplements recommended Vitamin B12: 500 to 1000 [...] looked into transition therapy. Recent study from [facility] Slim et al, 04/11/2020, reported one [...] initiated in patients who have had an SD or stroke in the preceding year. This [...] the pleasure of seeing your patient, Jam Tocsano. I have enclosed a copy of my clinic note with my assessment and recommendations for this patient. -Continuous follow up with Primary care physician for cardiovascular disease prevention, for age appropriate cancer screening and routine health maintenance and wellness, and infection precautions and age appropriate immunization recommended. Thank you for allowing me to participate in the care of your patient. Nidia Weston APRN.[facility] Jose L Lackey MD, MD Patient Instructions -PLEASE NOTE THAT WE REVIEW ALL YOUR TEST RESULTS AT YOUR NEXT FOLLOW UP VISIT WITH YOU. IF ANY ABNORMAL LAB REQUIRES SOONER ATTENTION, WE WILL CONTACT YOU. -If you have signed up on SlamData, we will release your test results through SlamData. I wish you the best of health [...] and sulfasalazine, but discuss first with your area cleaner. Supplements recommended Vitamin B12: 500 to 1000 [...] track your nutrition and calcium intake on www.[employer] This provides macro and micronutrient intake and requirements. - You can track your calcium intake on Virtusize or any other calcium tracker of your [...] now for a cost, such as at www.Snapfish. -When eating a whole food plant based [...] track your nutrition and calcium intake on www.[employer].[facility] This provides macro and micronutrient intake and [...] that features the Whole Plant Based diet, Sherwood over knives (see video online and visit website). Another movie that was recently released is: Eating You Alive (you can find it at Attention Point) and The Game Changers movie Dr. Fauzia Ansari is a [facility] physician who is an expert in Whole Plant based diet. His website is nkf-pharma. His research highlights the benefits of the Whole food plant based diet in reversing and preventing heart disease. Mrs. Ansari (his ) has a cookbook with many recipes on whole plant based food: The Prevent and Reverse Heart Disease cookbook. You can also consider reading his son, Eze Ansari's book: The Engine 2 cookbook Eze is a retired quantitative researcher who has helped many people get healthier [...] multiple free videos and YouTube, for example: https://youtu.be/wjiYdftU0r2 , https://youtu.be/BeSUTtjbo9t He has written multiple books, including Power vmock.com for the Brain, The Cheese Trap, Dr. Rock Velazco's Program for Reversing Diabetes, Your Body in Balance Dr. Anthony Carlson has shown the benefit of a starch based whole food plant based diet to his Rheumatoid Arthritis patients, as well as patient with diabetes II, hypertension, obesity, multiple sclerosis, heart disease, acne, and other, his website: www.debra.[facility] Dr. Yayo Allred is a renowned forensic scientist, who has studied and researched the benefits of the Whole plant based diet. He has also researched the adverse effects of animal proteins on health. He presents many of his research findings in his book The [place] study. Dr. Gerber Becker has completed many research trials proving the reversal of diseases, such as heart disease and early prostate cancer, with healthy lifestyle and the Whole Plant based diet. Dr. Gerber Becker website is: www.carmenCrossbar.[facility] His new book: Undo It, has evidence [...] videos and YouTube, for example https://youtu.be/aSgNkhgVtks and https://youtagUinu.be/lXXXygDRyBU. He has written multiple books including: How Not To and How Not To Diet He is now working on his next book: How Not To Age Dr. Danitza Dash (from the [facility]), has articles on the following website: Saavn.[facility] Also, you could find additional information on practical to follow recipes by reading or watching online and YouTube such as: Chef BELLE, Cooking With Plants, The Vegan Corner (recipes from an [place] Certified Technician), The Whole Foods Plant Based Cooking Show and visiting the provided websites for additional information on the whole plant based benefit and cooking recipes. You can also consider watching the vlogs of some of the plant based Athletes such as Graeme Kamara, Agustin Lundy on Spaces [address] Maryan Holguin (a psychiatrist who suffered [...] - Gentle Yoga Anyone Can Do Anywhere www.[employer]/yoga Also on youtube: yoga with Karlie 3- [...] or a higher dose. Raw: Garlic, Cilantro, [place] nuts, Pumpkin seeds, Keswick seeds and Flax seed powder have been reported to help with certain metal detoxification such as mercury. Butler-3 plant based rich foods are good anti-inflammatory [...] the Whole Plant Based Diet, by watching Sherwood over [employer] movie and then review website. There are many other resources and educational information on the Whole plant based diet on the Internet and documentaries. There are other resources for wellness that you can also benefit from, such as the [facility] Wellness website, [facility] and includes Plant based and Mediterranean diet, yoga and meditation. Please avoid all dairy products. You could use non-dairy milk such as Flax milk, Cashew milk, [place] milk, Rice milk, Oat milk or Hemp [...] example fruits (such as banana or frozen rual or pineapple) and add significant amount of [...] (National Osteoporosis Foundation) http://www.osteo.org/osteolinks.asp National Institutes of [facility]: 0-643-788-BONE [facility] Calcium Information [place]: -Non-Dairy, Plant based Milk, can contain in1 glass up to 450 mg of calcium (300 to 450 mg) Exampled include Oat Milk, Flax Milk, [place] Milk, Cashew Milk, Soy Milk, Peas Milk general health and well being Examples of Food Sources of Calcium from [facility] Food Milligrams (mg) per serving Percent DV* Soymilk, calcium-fortified, 8 ounces 299 30 Coffee juice, calcium-fortified, 6 ounces 261 26 Tofu, firm, made with calcium sulfate, cup* 253 25 Tofu, soft, made with calcium sulfate, cup* 138 14 Jrwzv-rf-yvv cereal, calcium-fortified, 1 cup 100-1,000 10-100 Turnip greens, fresh, boiled, cup 99 10 Kale, raw, chopped, 1 cup 100 10 Kale, fresh, cooked, 1 cup 94 9 Turkmen cabbage, bok marin, raw, shredded, 1 cup 74 7 Bread, white, 1 slice 73 7 Tortilla, corn, jjzhd-tp-bdyx/marshall, one 6 diameter 46 5 Tortilla, flour, mrqxu-ba-eeaq/marshall, one 6 diameter 32 3 Bread, whole-wheat, [...] daily with a meal; Certain patients require 3946-8509 iu daily and in patients deficient in [...] bones. Studies show approximately 50% of [place] men and women are vitamin D deficient [...] from: www.nof.org (the national osteoporosis foundation) http://www.[facility].org/leesa storm/osteo/info.htm http://ods.od.nih.gov/factsheets/vitam ind.asp National Institutes of Health: 6-962-721-BONE [facility] Calcium Information [place]: At the [facility], we work as a team for your care, along with Nurse Practitioners, Physician Assistants, Nurses and Medical Assistants. It is a privilege and honor to serve you. Thank you for choosing [facility] for your healthcare. Sincerely, Nidia Weston APRN.FIELD SALES REPRESENTATIVE PAST MEDICAL HISTORY Diagnosis Date Monoclonal gammopathy [...] mg subcutaneously every 2 weeks. Prescribed by Electric Motor And Generator Assembler : Nel Lebron MD Previously prescr. by [...] in am, 3 noon, 2 pm), per area cleaner No current facility-administered medications for this visit. [...] developed and its performance characteristics determined by [facility]'s [facility] Pathology and Laboratory Medicine [place] ([facility]). It has not been cleared or approved by the FDA. [facility] is regulated under CLIA as qualified [...] 147 53 - 334 mg/dL Final MPA Cataract, Serum Date Value Ref Range Status 08/19/2018 1,020 534 - 1,267 mg/dL Final MPA Lambda, Serum Date Value Ref Range Status 08/19/2018 551 253 - 653 mg/dL Final MPA Cataract/Lambda Ratio Date Value Ref Range Status 08/19/2018 [...] DATE OF EXAM: Sep 23 2022 10:03AM [facility] 0804 - DXA - AXIAL SKELETON / PROCEDURE REASON: multiple diagnoses * * * * Physician Interpretation * * * * EXAMINATION: DXA BONE DENSITOMETRY BD DXA - AXIAL SKELETON PATIENT DEMOGRAPHICS: Age: 57 years, Race: , Gender: Male SCANNER INFORMATION: DXA Model: anchor.travel W [id number] SITE SCANNED: Lumbar spine and left hip [...] machine for accurate comparison. FOR MORE INFORMATION: [facility] Osteoporosis and Metabolic Bone Disease: www.ccf.org/arthritis/osteo National Osteoporosis Foundation: www.nof.org International Society of Clinical Densitometry www.iscd.org Supervisor Porcelain Department: [id number] Transcribe Date/Time: Sep 23 2022 10:28A Dictated by : DARRIAN DUBON MD This examination was interpreted and the report reviewed and electronically signed by: DARRIAN DUBON MD on Sep 28 2022 6:46PM EST documented in this encounter [facility] 01-15-2023 Miscellaneous Notes Lm regarding results and recommendations. Please call patient Normal vit d Please continue current dose Received outside lab results from Zbigniew Mullen ordered by Nidia Weston CNP -- 01/12/23 Vit D 40.2 documented in this encounter [facility] 01-11-2023 Instructions Nidia Weston APRN.JOSE - 01/11/2023 7:57 PM EST -PLEASE NOTE THAT WE REVIEW ALL YOUR TEST RESULTS AT YOUR NEXT FOLLOW UP VISIT WITH YOU. IF ANY ABNORMAL LAB REQUIRES SOONER ATTENTION, WE WILL CONTACT YOU. -If you have signed up on SlamData, we will release your test results through SlamData. I wish you the best of health [...] and sulfasalazine, but discuss first with your area cleaner. Supplements recommended Vitamin B12: 500 to 1000 [...] track your nutrition and calcium intake on www.[employer] This provides macro and micronutrient intake and requirements. - You can track your calcium intake on Virtusize or any other calcium tracker of your [...] now for a cost, such as at www.Snapfish. -When eating a whole food plant based [...] track your nutrition and calcium intake on www.[employer] This provides macro and micronutrient intake and [...] that features the Whole Plant Based diet, Sherwood over knives (see video online and visit website). Another movie that was recently released is: Eating You Alive (you can find it at Attention Point) and The Compositence Changers movie Dr. Fauzia Ansari is a [facility] physician who is an expert in Whole Plant based diet. His website is nkf-pharma. His research highlights the benefits of the Whole food plant based diet in reversing and preventing heart disease. Mrs. Ansari (his ) has a cookbook with many recipes on whole plant based food: The Prevent and Reverse Heart Disease cookbook. You can also consider reading his son, Eze Ansari's book: The Engine 2 cookbook Eze is a retired quantitative researcher who has helped many people get healthier by following the whole food plant based diet. Dr. Rock Velazco, has a website and free angélica to help get started on a whole plant based diet, at www.pcrDesktone.org and you can log on for free for his 21-Day Kickstart with meals and recipes to follow for 21 days. There is also a free angélica for that. He has multiple free videos and YouTube, for example: https://youOKCoin.be/[email or web address] , https://[email or web address] He has written multiple books, including Power [...] heart disease, acne, and other, his website: www.debra.[facility] Dr. Yayo Allred is a renowned forensic scientist, who has studied and researched the benefits of the Whole plant based diet. He has also researched the adverse effects of animal proteins on health. He presents many of his research findings in his book The [place] study. Dr. Gerber Becker has completed many research trials proving the reversal of diseases, such as heart disease and early prostate cancer, with healthy lifestyle and the Whole Plant based diet. Dr. Gerber Becker website is: www.carmenCrossbar.[facility] His new book: Undo It, has evidence based information and guide to following this healthy lifestyle. Dr. Cody Dillon has dedicated a website and additional time to reviewing all food related articles and research and presents them in his power point presentation and on his website at: nutritionfacts.org which is all free. Dr. Dillon has multiple free videos and YouTube, for example https://WSC [employer].be/aSgNkhgVtks and https://WSC Group.be/lXXXygDRyBU. He has written multiple books including: How Not To and How Not To Diet He is now working on his next book: How Not To Age Dr. Danitza Dash (from the [facility]), has articles on the following website: Saavn.[facility] Also, you could find additional information on practical to follow recipes by reading or watching online and YouTube such as: Certified Technician AJ, Cooking With Plants, The Vegan Corner (recipes from an [place] Certified Technician), The Whole Foods Plant Based Cooking Show and visiting the provided websites for additional information on the whole plant based benefit and cooking recipes. You can also consider watching the vlogs of some of the plant based Athletes such as Graeme Kamara, Agustin Lundy on Spaces [address] Maryan Holguin (a psychiatrist who suffered [...] - Gentle Yoga Anyone Can Do Anywhere www.[employer]/yoga Also on youtube: yoga with Karlie 3- [...] or a higher dose. Raw: Garlic, Cilantro, [place] nuts, Pumpkin seeds, Keswick seeds and Flax seed powder have been reported to help with certain metal detoxification such as mercury. Butler-3 plant based rich foods are good anti-inflammatory [...] the Whole Plant Based Diet, by watching Sherwood over [employer] movie and then review website. There are many other resources and educational information on the Whole plant based diet on the Internet and documentaries. There are other resources for wellness that you can also benefit from, such as the [facility] Wellness website, [facility] and includes Plant based and Mediterranean diet, yoga and meditation. Please avoid all dairy products. You could use non-dairy milk such as Flax milk, Cashew milk, [place] milk, Rice milk, Oat milk or Hemp [...] milk, beans, lentils - Vegetables and Fruit: bok-mairn, turnips, broccoli, kale, collards, - Dairy products: [...] Osteoporosis Foundation) http://www.osteo.org/osteolinks.asp National Institutes of Health: 4-823-971-BONE The Calcium Information Center: -Non-Dairy, Plant based Milk, can contain in1 glass up to 450 mg of calcium (300 to 450 mg) Exampled include Oat Milk, Flax Milk, [place] Milk, Cashew Milk, Soy Milk, Peas Milk general health and well being Examples of Food Sources of Calcium from [facility] Food Milligrams (mg) per serving Percent DV* Soymilk, calcium-fortified, 8 ounces 299 30 Coffee juice, calcium-fortified, 6 ounces 261 26 Tofu, firm, made with calcium sulfate, cup* 253 25 Tofu, soft, made with calcium sulfate, cup* 138 14 Rcivp-so-wbi cereal, calcium-fortified, 1 cup 100-1,000 10-100 Turnip greens, fresh, boiled, cup 99 10 Kale, raw, chopped, 1 cup 100 10 Kale, fresh, cooked, 1 cup 94 9 Turkmen cabbage, bok marin, raw, shredded, 1 cup 74 7 Bread, white, 1 slice 73 7 Tortilla, corn, ljkmr-qe-xuqc/marshall, one 6 diameter 46 5 Tortilla, flour, xajih-gc-nsnn/marshall, one 6 diameter 32 3 Bread, whole-wheat, [...] daily with a meal; Certain patients require 0994-7448 iu daily and in patients deficient in [...] bones. Studies show approximately 50% of [place] men and women are vitamin D deficient [...] is/osteo/info.htm http://ods.od.nih.gov/factsheets/vitam ind.asp National Institutes of Health: 7-548-523-BONE The Calcium Information Center: At the [facility], we work as a team for your care, along with Nurse Practitioners, Physician Assistants, Nurses and Medical Assistants. It is a privilege and honor to serve you. Thank you for choosing [facility] for your healthcare. Sincerely, Nidia Weston APRN.CNP documented in this encounter [facility] 12-29-2022 History of [...] in patient's severe chronic Rheumatoid Arthritis. His area cleaner has switched him to Humira as he [...] IBD and intermittent steroid therapy from his area cleaner. Pharmacologic therapy is still indicated and recommended, [...] if necessary, CC, NOF and ISCD and [facility]. PLAN: [facility] on 12/29/22 VITAMIN D 25 HYDROXY Please continue on yout Vitamin D 5000 international units once daily with meals and your multivitamin - You are on Humira and sulfasalazine for your Ulcerative Colitis. These are also treating your Rheumatoid Arthritis. During infections you will need to hold the Humira and sulfasalazine, but discuss first with your area cleaner. Supplements recommended Vitamin B12: 500 to 1000 [...] in the office. This medication is given manager terminal, indefinitely. Prolia should not be discontinued [...] looked into transition therapy. Recent study from [facility] Slim et al, 04/11/2020, reported one [...] initiated in patients who have had an SD or stroke in the preceding year. This [...] atypical and subtroch. fracture of femur with manager terminal use of bisphosphonates/alendronate and anti-resorptive agents, [...] which included preparing to see the patient, noyx-jd-gyvt patient care, completing clinical documentation, obtaining and/or [...] the care of your patient. Nidia Weston APRN.[facility] cc Jose L Lackey MD, MD Patient Instructions -PLEASE NOTE THAT WE REVIEW ALL YOUR TEST RESULTS AT YOUR NEXT FOLLOW UP VISIT WITH YOU. IF ANY ABNORMAL LAB REQUIRES SOONER ATTENTION, WE WILL CONTACT YOU. -If you have signed up on SlamData, we will release your test results through SlamData. I wish you the best of health [...] and sulfasalazine, but discuss first with your area cleaner. Supplements recommended Vitamin B12: 500 to 1000 [...] track your nutrition and calcium intake on www.[employer] This provides macro and micronutrient intake and requirements. - You can track your calcium intake on Virtusize or any other calcium tracker of your [...] now for a cost, such as at www.Snapfish. -When eating a whole food plant based [...] track your nutrition and calcium intake on www.SOMA Barcelonaometer.[facility] This provides macro and micronutrient intake and [...] that features the Whole Plant Based diet, Sherwood over knives (see video online and visit website). Another movie that was recently released is: Eating You Alive (you can find it at Attention Point) and The Compositence [employer] movie Dr. Fauzia Ansari is a [facility] physician who is an expert in Whole Plant based diet. His website is nkf-pharma. His research highlights the benefits of the Whole food plant based diet in reversing and preventing heart disease. Mrs. Ansari (his ) has a cookbook with many recipes on whole plant based food: The Prevent and Reverse Heart Disease cookbook. You can also consider reading his son, Eze Ansari's book: The Engine 2 cookbook Eze is a retired quantitative researcher who has helped many people get healthier [...] multiple free videos and YouTube, for example: https://youtu.be/vfzWptaA9m2 , https://youtu.be/BlWMUgzyl4o He has written multiple books, including Power vmock.com for the Brain, The Cheese Trap, Dr. Rock Velazco's Program for Reversing Diabetes, Your Body in Balance Dr. Anthony Carlson has shown the benefit of a starch based whole food plant based diet to his Rheumatoid Arthritis patients, as well as patient with diabetes II, hypertension, obesity, multiple sclerosis, heart disease, acne, and other, his website: www.debra.[facility] Dr. Yayo Allred is a renowned forensic scientist, who has studied and researched the benefits of the Whole plant based diet. He has also researched the adverse effects of animal proteins on health. He presents many of his research findings in his book The [place] study. Dr. Gerber Becker has completed many research trials proving the reversal of diseases, such as heart disease and early prostate cancer, with healthy lifestyle and the Whole Plant based diet. Dr. Gerber Becker website is: www.carmenCrossbar.[facility] His new book: Undo It, has evidence based information and guide to following this healthy lifestyle. Dr. Cody Dillon has dedicated a website and additional time to reviewing all food related articles and research and presents them in his power point presentation and on his website at: nutritionfacts.org which is all free. Dr. Dillon has multiple free videos and YouTube, for example https://youtagUinu.be/aSgNkhgVtks and https://youOKCoin.be/lXXXygDRyBU. He has written multiple books including: How Not To and How Not To Diet He is now working on his next book: How Not To Age Dr. Danitza Dash (from the [facility]), has articles on the following website: Saavn.[facility] Also, you could find additional information on practical to follow recipes by reading or watching online and YouTube such as: Certified Technician AJ, Cooking With Plants, The Vegan Corner (recipes from an [place] Certified Technician), The Whole Foods Plant Based Cooking Show and visiting the provided websites for additional information on the whole plant based benefit and cooking recipes. You can also consider watching the vlogs of some of the plant based Athletes such as Fausto Ewing Derek on Soundl.ly Nutrition. Dr. Maryan Holguin (a psychiatrist who [...] - Gentle Yoga Anyone Can Do Anywhere www.[employer]/yoga Also on youtube: yoga with Karlie 3- [...] or a higher dose. Raw: Garlic, Cilantro, [place] nuts, Pumpkin seeds, Keswick seeds and Flax seed powder have been reported to help with certain metal detoxification such as mercury. Butler-3 plant based rich foods are good anti-inflammatory [...] the Whole Plant Based Diet, by watching Sherwood over Al[employer] movie and then review website. There are many other resources and educational information on the Whole plant based diet on the Internet and documentaries. There are other resources for wellness that you can also benefit from, such as the [facility] Wellness website, [email or web address] and includes Plant based and Mediterranean diet, yoga and meditation. Please avoid all dairy products. You could use non-dairy milk such as Flax milk, Cashew milk, [place] milk, Rice milk, Oat milk or Hemp [...] milk, beans, lentils - Vegetables and Fruit: bok-marni, turnips, broccoli, kale, collards, - Dairy products: [...] Osteoporosis Foundation) http://www.osteo.org/osteolinks.asp National Institutes of Health: 1-261-725-BONE The Calcium Information Center: -Non-Dairy, Plant based Milk, can contain in1 glass up to 450 mg of calcium (300 to 450 mg) Exampled include Oat Milk, Flax Milk, [place] Milk, Cashew Milk, Soy Milk, Peas Milk general health and well being Examples of Food Sources of Calcium from NIH Food Milligrams (mg) per serving Percent DV* Soymilk, calcium-fortified, 8 ounces 299 30 Coffee juice, calcium-fortified, 6 ounces 261 26 Tofu, firm, made with calcium sulfate, cup* 253 25 Tofu, soft, made with calcium sulfate, cup* 138 14 Yfsaf-eo-ucw cereal, calcium-fortified, 1 cup 100-1,000 10-100 Turnip greens, fresh, boiled, cup 99 10 Kale, raw, chopped, 1 cup 100 10 Kale, fresh, cooked, 1 cup 94 9 Turkmen cabbage, bok marin, raw, shredded, 1 cup 74 7 Bread, white, 1 slice 73 7 Tortilla, corn, nkpsv-sc-uhhs/marshall, one 6 diameter 46 5 Tortilla, flour, lwyfh-ge-ulxo/marshall, one 6 diameter 32 3 Bread, whole-wheat, [...] daily with a meal; Certain patients require 8851-3252 iu daily and in patients deficient in [...] bones. Studies show approximately 50% of [place] men and women are vitamin D deficient [...] is/osteo/info.htm http://ods.od.nih.gov/factsheets/vitam ind.asp National Institutes of Health: 4-767-402-BONE The Calcium Information [place]: At the [facility], we work as a team for your care, along with Nurse Practitioners, Physician Assistants, Nurses and Medical Assistants. It is a privilege and honor to serve you. Thank you for choosing [facility] for your healthcare. Sincerely, Nidia Weston APRN.FIELD SALES REPRESENTATIVE PAST MEDICAL HISTORY Diagnosis Date Monoclonal gammopathy [...] 1 ENEMA RECTALLY EVERY DAY AT BEDTIME JF MARSHALL, PEN 40 mg/0.4 mL pen kit Inject 40 mg subcutaneously every 2 weeks. Prescribed by Electric Motor And Generator Assembler : Nel Lebron MD Previously prescr. by [...] in am, 3 noon, 2 pm), per area cleaner No current facility-administered medications for this visit. [...] developed and its performance characteristics determined by [facility]'s [facility] Path[facility] Laboratory Medicine [place] ([facility]). It has not been cleared or approved by the FDA. -[facility] is regulated under CLIA as qualified [...] 147 53 - 334 mg/dL Final MPA Cataract, Serum Date Value Ref Range Status 08/19/2018 1,020 534 - 1,267 mg/dL Final MPA Lambda, Serum Date Value Ref Range Status 08/19/2018 551 253 - 653 mg/dL Final MPA Cataract/Lambda Ratio Date Value Ref Range Status 08/19/2018 [...] , Gender: Male SCANNER INFORMATION: DXA Model: anchor.travel W [id number] SITE SCANNED: Lumbar spine and left hip [...] International Society of Clinical Densitometry www.iscd.org Supervisor [place] Department: [id number] Transcribe Date/Time: Sep 23 2022 10:28A Dictated by : DARRIAN DUBON MD This examination was interpreted and the report reviewed and electronically signed by: DARRIAN DUBON MD on Sep 28 2022 6:46PM EST documented in this encounter [facility] 09-23-2022 History of [...] 2022 9:54 AM documented in this encounter [facility] 02-10-2022 Miscellaneous Notes [...] you kindly, fa documented in this encounter [facility] 08-22-2020 History of [...] 2020 10:20 AM documented in this encounter [facility] Evaluation note Diagnosis Rheumatoid arthritis 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)- Primary Vitamin D deficiency Unspecified vitamin D deficiency Encounter to discuss test results Other specified counseling Encounter for medication review and counseling Other specified counseling Counseling on health promotion and disease prevention Other specified counseling Other osteoporosis without current pathological fracture [facility] Diagnosis Rheumatoid arthritis 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)- Primary Encounter to discuss test results Other specified counseling Counseling on health promotion and disease prevention Other specified counseling Ulcerative pancolitis (HCC) [place] ulcerative (chronic) colitis Other osteoporosis without current pathological fracture [facility] Diagnosis Rheumatoid arthritis 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)- Primary Encounter to discuss test results Other specified counseling Counseling on health promotion and disease prevention Other specified counseling Ulcerative pancolitis (HCC) [place] ulcerative (chronic) colitis Vitamin D deficiency Unspecified vitamin D deficiency On sulfasalazine therapy Encounter for medication review and counseling Other specified counseling Other osteoporosis without current pathological fracture Elevated serum immunoglobulin free light chain level Other nonspecific findings on examination of blood [facility] Diagnosis Seropositive rheumatoid arthritis (HCC) Rheumatoid arthritis Other osteoporosis without current pathological fracture Chronic pain of left ankle Ankle deformity, left Pes planus, unspecified laterality Other secondary osteoarthritis of multiple sites [facility] Diagnosis Rheumatoid arthritis 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) Other osteoporosis without current pathological fracture High risk for hip fracture Other specified conditions influencing health status Vitamin D deficiency, hx Unspecified vitamin D deficiency [facility]* Diagnosis Other osteoporosis without current pathological fracture High risk for hip fracture Other specified conditions influencing health status Bone loss Other disorders of bone and cartilage Vitamin D deficiency, hx Unspecified vitamin D deficiency documented [facility]* Diagnosis Elevated alkaline phosphatase level- Primary Other nonspecific abnormal serum enzyme levels documented [facility] this [facility]* Diagnosis Rheumatoid arthritis 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) documented [facility] this encounter [facility]* Diagnosis Rheumatoid arthritis 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)- Primary Vitamin D deficiency Unspecified vitamin D deficiency Other osteoporosis without current pathological fracture Encounter for medication review and counseling Other specified counseling Rheumatoid arthritis 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) documented [facility] this [facility]* Diagnosis Foreign body of left hand, sequela- Primary documented in this encounter [facility]* Diagnosis Rheumatoid arthritis 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)- Primary Vitamin D deficiency Unspecified vitamin D deficiency Other osteoporosis without current pathological fracture documented [facility] this [facility]* Diagnosis Seropositive rheumatoid arthritis (HCC)- Primary Rheumatoid arthritis Rheumatoid arthritis 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) On sulfasalazine therapy Ulcerative pancolitis (HCC) [place] ulcerative (chronic) colitis Other osteoporosis without current pathological fracture History of bisphosphonate therapy Personal history of other drug therapy Counseling on health promotion and disease prevention Other specified counseling documented in this encounter [facility] note* Diagnosis Other osteoporosis without current pathological fracture- Primary documented [facility] this [facility]* Diagnosis Seropositive rheumatoid arthritis (HCC)- Primary Rheumatoid arthritis Rheumatoid arthritis 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) On sulfasalazine therapy Ulcerative pancolitis (HCC) [place] ulcerative (chronic) colitis Other osteoporosis without current pathological fracture History of bisphosphonate therapy Personal history of other drug therapy Encounter to discuss test results Other specified counseling Encounter for medication review and counseling Other specified counseling Counseling on health promotion and disease prevention Other specified counseling documented [facility] this [facility]* Diagnosis Pain of right hip- Primary Primary osteoarthritis of right hip Arthritis of knee, left History of total hip replacement, right documented [facility] Diagnostic Procedure Only (Routine) - Closed Specialty Diagnoses / Procedures Referred By Contac t Referred To Contact XR IMAGING Diagnoses Rheumatoid arthritis 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) Procedures XR HAND GENERAL 3V PA/LAT/OBL BILATERAL RADEX HAND MINIMUM 3 VIEWS Nidia Weston APRN.FIELD SALES REPRESENTATIVE [address] [place] [address] [place] [address] Referral ID Status Reason Start Date Expiration Date V isits Requested Visits Authorized [id number] Closed Auto-Generate d Referral 03/14/2024 11/15/2024 1 1 [facility] for referral (narrative)* Diagnostic Procedure Only (Routine) - Closed Specialty Diagnoses / Procedures Referred By Contac t Referred To Contact XR IMAGING Diagnoses Rheumatoid arthritis 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) Procedures XR HAND GENERAL 3V PA/LAT/OBL BILATERAL RADEX HAND MINIMUM 3 VIEWS Nidia Weston APRN.FIELD SALES REPRESENTATIVE [address] [facility] [place] [address] [place] [address] Referral ID Status Reason Start Date Expiration Date V isits Requested Visits Authorized [id number] Closed Auto-Generate d Referral 03/14/2024 11/15/2024 1 1 * Diagnostic Procedure Only (Routine) - Pending Review Specialty Diagnoses / Procedures Referred By Contac t Referred To Contact XR IMAGING Diagnoses Rheumatoid arthritis 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) Procedures XR HAND GENERAL 3V PA/LAT/OBL BILATERAL RADEX HAND MINIMUM 3 VIEWS Nidia Weston APRN.FIELD SALES REPRESENTATIVE [address] [facility] [place] [address] [place] [address] Referral ID Status Reason Start Date Expiration Date Visits Requested Visits Authorized [id number] Pending Review Auto-Generat ed Referral 04/13/2024 04/13/2025 1 1 [facility] for referral (narrative)* Diagnostic Procedure Only (Routine) - Pending Review Specialty Diagnoses / Procedures Referred By Contac t Referred To Contact XR IMAGING Diagnoses Seropositive rheumatoid arthritis (HCC) Ulcerative pancolitis (HCC) Other osteoporosis without current pathological fracture History of bisphosphonate therapy Procedures DXA-AXIAL SKELETON DXA BONE DENSITY STUDY 1/> SITES AXIAL Darrian Tran MD [address] [place] [address] [place] [address] Referral ID Status Reason Start Date Expiration Date Visits Requested Visits Authorized [id number] Pending Review Auto-Generat ed Referral 11/04/2025 1 1 [facility] for visit Narrative* Diagnostic Procedure Only (Routine) - Closed Specialty Diagnoses / Procedures Referred By Contac t Referred To Contact XR IMAGING Diagnoses Rheumatoid arthritis 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) Procedures XR HAND GENERAL 3V PA/LAT/OBL BILATERAL RADEX HAND MINIMUM 3 VIEWS Nidia Weston, FUNCTIONAL ARCHITECT.FIELD SALES REPRESENTATIVE [address] [place] [address] [place] [address] Referral ID Status Reason Start Date Expiration Date V isits Requested Visits Authorized [id number] Closed Auto-Generate d Referral 03/14/2024 11/15/2024 1 1 [facility] Advance Directives No [...] NEW HIGH MDM 60 MINUTES Nidia Weston, FUNCTIONAL ARCHITECT.FIELD SALES REPRESENTATIVE [address] [place] [address] Referral ID Status Reason Start Date Expiration Date Visits Requested Visits Authorized [id number] Authorized PCP Requested Referral 02/11/2024 02/10/2025 1 1 Specialty Diagnoses / Procedures Referred By Contac t Referred To Contact Orthopedics Diagnoses Foreign body of left hand, sequela Procedures CONSULT TO ORTHOPAEDICS OFFICE/OUTPATIENT [facility] MDM 60 MINUTES Nidia Weston, FUNCTIONAL ARCHITECT.FIELD SALES REPRESENTATIVE [address] [place] [address] Referral ID Status Reason Start Date Expiration Date Visits Requested Visits Authorized [id number] Authorized PCP Requested Referral 04/11/2024 04/11/2025 1 [...] section and content) DATE CREATED AUTHOR 11/30/2021 [facility] DATE CREATED AUTHOR AUTHOR'S ORGANIZ ATION 02/20/2023 [facility] DATE CREATED AUTHOR AUTHOR'S ORGANIZ ATION 06/09/2024 [facility] DATE CREATED AUTHOR AUTHOR'S ORGANIZ ATION 06/18/2024 [facility] DATE CREATED AUTHOR AUTHOR'S ORGANIZ ATION 12/15/2024 [facility] DATE CREATED AUTHOR AUTHOR'S ORGANIZ ATION 12/16/2024 [facility] DATE CREATED AUTHOR AUTHOR'S ORGANIZ ATION 12/17/2024 [facility] DATE CREATED AUTHOR AUTHOR'S ORGANIZ ATION 12/24/2024 [facility] DATE CREATED AUTHOR AUTHOR'S ORGANIZ ATION 02/22/[address] [facility] DATE CREATED AUTHOR AUTHOR'S ORGANIZ ATION 04/02/2025 [facility] EPIC Source Comments (unrecognize d section and content) In the event this informatio n is protected by the Federal Confidentiality of Alcohol and Drug Abuse Patient Records regulations: The Federal rules restrict any use of the information to criminally investigate or prosecute any alcohol or drug abuse patient.[facility] the event this information is protected by the Federal Confidentiality of Alcohol and Drug Abuse Patient Records regulations: The Federal rules restrict any use of the information to criminally investigate or prosecute any alcohol or drug abuse patient.[facility] RehabilitationIn the event this information is protected by the Federal Confidentiality of Alcohol and Drug Abuse Patient Records regulations: The Federal rules restrict any use of the information to criminally investigate or prosecute any alcohol or drug abuse patient.[facility] RehabilitationIn the event this information is protected by the Federal Confidentiality of Alcohol and Drug Abuse Patient Records regulations: The Federal rules restrict any use of the information to criminally investigate or prosecute any alcohol or drug abuse patient.[facility] RehabilitationIn the event this information is protected by the Federal Confidentiality of Alcohol and Drug Abuse Patient Records regulations: The Federal rules restrict any use of the information to criminally investigate or prosecute any alcohol or drug abuse patient.[facility] RehabilitationIn the event this information is protected by the Federal Confidentiality of Alcohol and Drug Abuse Patient Records regulations: The Federal rules restrict any use of the information to criminally investigate or prosecute any alcohol or drug abuse patient.[facility] RehabilitationIn the event this information is protected by the Federal Confidentiality of Alcohol and Drug Abuse Patient Records regulations: The Federal rules restrict any use of the information to criminally investigate or prosecute any alcohol or drug abuse patient.[facility] RehabilitationIn the event this information is protected by the Federal Confidentiality of Alcohol and Drug Abuse Patient Records regulations: The Federal rules restrict any use of the information to criminally investigate or prosecute any alcohol or drug abuse patient.[facility] RehabilitationIn the event this information is protected by the Federal Confidentiality of Alcohol and Drug Abuse Patient Records regulations: The Federal rules restrict any use of the information to criminally investigate or prosecute any alcohol or drug abuse patient.[facility] RehabilitationIn the event this information is protected by the Federal Confidentiality of Alcohol and Drug Abuse Patient Records regulations: The Federal rules restrict any use of the information to criminally investigate or prosecute any alcohol or drug abuse patient.[facility] RehabilitationIn the event this information is protected by the Federal Confidentiality of Alcohol and Drug Abuse Patient Records regulations: The Federal rules restrict any use of the information to criminally investigate or prosecute any alcohol or drug abuse patient.[facility] RehabilitationIn the event this information is protected by the Federal Confidentiality of Alcohol and Drug Abuse Patient Records regulations: The Federal rules restrict any use of the information to criminally investigate or prosecute any alcohol or drug abuse patient.[facility] RehabilitationIn the event this information is protected by the Federal Confidentiality of Alcohol and Drug Abuse Patient Records regulations: The Federal rules restrict any use of the information to criminally investigate or prosecute any alcohol or drug abuse patient.[facility] RehabilitationIn the event this information is protected by the Federal Confidentiality of Alcohol and Drug Abuse Patient Records regulations: The Federal rules restrict any use of the information to criminally investigate or prosecute any alcohol or drug abuse patient.[facility] RehabilitationIn the event this information is protected by the Federal Confidentiality of Alcohol and Drug Abuse Patient Records regulations: The Federal rules restrict any use of the information to criminally investigate or prosecute any alcohol or drug abuse patient.[facility] RehabilitationIn the event this information is protected by the Federal Confidentiality of Alcohol and Drug Abuse Patient Records regulations: The Federal rules restrict any use of the information to criminally investigate or prosecute any alcohol or drug abuse patient.[facility] RehabilitationIn the event this information is protected by the Federal Confidentiality of Alcohol and Drug Abuse Patient Records regulations: The Federal rules restrict any use of the information to criminally investigate or prosecute any alcohol or drug abuse patient.[facility] RehabilitationIn the event this information is protected by the Federal Confidentiality of Alcohol and Drug Abuse Patient Records regulations: The Federal rules restrict any use of the information to criminally investigate or prosecute any alcohol or drug abuse patient.[facility] RehabilitationIn the event this information is protected by the Federal Confidentiality of Alcohol and Drug Abuse Patient Records regulations: The Federal rules restrict any use of the information to criminally investigate or prosecute any alcohol or drug abuse patient.[facility] Reason for Visit (unrecogniz [...] INJECTION, ZOLEDRONIC ACID, 1 MG Nidia Weston, FUNCTIONAL ARCHITECT.FIELD SALES REPRESENTATIVE [address] [facility] [place] [address] Rheu Infusion [facility] Maria De Jesus [address] [place] [address] [place] [address] Referral ID Status Reason Start Date Expiration Date V isits Requested Visits Authorized [id number] Authorized 04/12/2024 04/12/2025 1 1 Reason Comments Pain Care Teams (unrecognized sec tion and content) Nursing Unit Coordinator Relationship Specialty Start Date End Date Jose L Lackey MD PCP - General Family Practice 01/18/14 Nursing Unit Coordinator Relationship Specialty Start Date End Date Jose L Lackey MD PCP - General Family Medicine 01/18/14 Nursing Unit Coordinator Relationship Specialty Start Date End Date Jose L Lackey MD PCP - General Family Medicine 01/18/14 Nursing Unit Coordinator Relationship Specialty Start Date End Date Jose L Lackey MD PCP - General Family Medicine 01/18/14 Nursing Unit Coordinator Relationship Specialty Start Date End Date Jose L Lackey MD PCP - General Family Medicine 01/18/14 Nursing Unit Coordinator Relationship Specialty Start Date End Date Jose L Lackey MD PCP - General Family Medicine 01/18/14 Nursing Unit Coordinator Relationship Specialty Start Date End Date Jose L Lackey MD PCP - General Family Medicine 01/18/14 Nursing Unit Coordinator Relationship Specialty Start Date End Date Jose L Lackey MD PCP - General Family Medicine 01/18/14 Nursing Unit Coordinator Relationship Specialty Start Date End Date Jose L Lackey MD PCP - General Family Medicine 01/18/14 Nursing Unit Coordinator Relationship Specialty Start Date End Date Jose L Lackey MD PCP - General Family Medicine 01/18/14 Nursing Unit Coordinator Relationship Specialty Start Date End Date Jose L Lackey MD PCP - General Family Medicine 01/18/14 Nursing Unit Coordinator Relationship Specialty Start Date End Date Jose L Lackey MD PCP - General Family Medicine 01/18/14 Nursing Unit Coordinator Relationship Specialty Start Date End Date Jose L Lackey MD PCP - General Family Medicine 01/18/14 Nursing Unit Coordinator Relationship Specialty Start Date End Date Jose L Lackey MD PCP - General Family Medicine 01/18/14 Nursing Unit Coordinator Relationship Specialty Start Date End Date Jose L Lackey MD PCP - General Family Medicine 01/18/14 Nursing Unit Coordinator Relationship Specialty Start Date End Date Jose L Lackey MD PCP - General Family Medicine 04/21/23 Nursing Unit Coordinator Relationship Specialty Start Date End Date Jose L Lackey MD PCP - General Family Medicine 04/21/23 FOR RECORDS PERTAINING TO PATIENTS WHO ARE [...] BE BASED ON THE PRIMARY CLINICAL RECORDS. [facility] [employer] [facility]. provides no warranty or guarantee of the accuracy or completeness of information in this document.
[2025-04-15 05:07] LABS: HBsAg Screen Negative (Negative); HCV Ab Non Reactive (Non Reactive); Hep A Ab, IgM Negative (Negative); Hep B Core Ab, IgM Negative (Negative)
[2025-04-18 04:09] LABS: QuantiFERON-TB Gold Plus Negative (Negative)
== END 2025-04-14 09:48 | disposition home or self-care (01) ==
LOC: LAB 09:47
PROVIDERS: PCP Family Medicine; Visit Provider Family Medicine
DX: M06.9 Rheumatoid arthritis, unspecified (principal); D50.9 Iron deficiency anemia, unspecified
CPT/HCPCS: 36415; 80074; 86480

== ENCOUNTER 2025-05-16 11:33 | Outpatient (OUT) | payer OTHER, SELFPAY ==
--- OUTSIDE RECORDS SUMMARY | 2025-05-03 10:00 | XMS_ITS | Encounter Summary ---
Author Organization [facility] Address [address] [place] [address] Care Team Providers Care Safety Representative Name Role Phone Norm Wang MD Primary Care Provider [phone] Reason for Visit * Reason Comments Follow-up Follow-up Encounter Details Date Type Department Care Team (Late st Contact Info) Description 05/03/2025 10:00 AM EDT Office Visit [facility] [address] [facility] [address] [place] [address] Jr. Elias Veliz, DO 112 [facility] [address] [place] [address] Pain and swelling of right knee (Primary Dx); History of total left knee replacement; History of total right knee replacement; Pain and swelling of left knee Social History Tobacco Use Types Packs/Day Years Used Date Smoking Tobacco: Former Cigarettes Q uit: 2011 Smokeless Tobacco: Former Alcohol Use Standard Drinks/Week Comments Not Currently 0 (1 standard drink = 0.6 oz pure alcohol) Caffeine: more than 4 cups per day Sex and Gender Information Value Date Recorded Sex Assigned at Not on file Legal Sex Male 7:07 PM EDT Gender Identity Not on file Sexual Orientation Not on file documented as of this encounter Progress Notes * Jr. Elias Veliz DO - 05/03/2025 10:00 AM EDT Images from the original note were not included. HISTORY OF PRESENT ILLNESS: EST PT James Barcenas Shantalaletha is an 60 y.o. @ male. (EST PT) (LAST APPT W/ DR. MABRY) - YEARLY RECHECK B/L KNEES S/P (L) TKA 02/27/2012 (~13 YRS, 2MONTHS) ; S/P (R) TKA 06/13/2011 (~13 YRS, 11 MONTHS) (L) KNEE XRAY B/L KNEES TODAY, 05/03/25 XRAY (L) KNEE 05/03/24, 04/21/23 IN [facility] XRAY AP B/L KNEES 06/17/22, 04/01/22, 02/26/21, 04/17/20 IN [facility] DOING WELL. ADMITS CONSTANT LATERAL ROTATION OF KNEE D/T FOOT ROTATION. ADMITS CONSTANT SWELLING TOKNEE / FOOT ~1 MONTH - RECENTLY STARTED METHOTREXATE - WITH RELIEF. DENIES WAKING HS - SLEEPS WITH BODY PILLOW AGAINST LEG D/T ROTATION. FULL ROM. OCCASIONAL STIFFNESS. ADMITS POPPING. ADMITS ICING /ELEVATING. TYL PRN (ARTHRITIS). WEARS VELCO BRACE OCCASIONALLY. (R) KNEE XRAY B/L KNEES TODAY, 05/03/25 XRAY (R) KNEE 06/16/23 IN [facility] XRAY (R) KNEE 02/26/21 IN [facility] XRAY AP B/L KNEES 06/17/22, 04/01/22, 02/26/21, 04/17/20 IN [facility] DOING WELL. GOOD ROM. DENIES SWELLING / N/T. DENIES STIFFNESS. NO PAIN MEDS. DENIES ICING / HEATING. PLEASED WITH OUTCOME. ALLERGIES: Allergies Allergen Reactions Cholestatin Unknown HOME [...] (Rowasa) 4 g enema as directed Rectal methotrexate 2.5 MG tablet Oral, Follow directions carefully, and ask to explain any part you do not understand. Take exactly as directed. Multiple Vitamins-Minerals (CENTRUM ADULTS PO) Orally omeprazole (PRILOSEC) 40 mg, Oral, Daily RT sulfaSALAzine (Azulfidine) 500 MG EC tablet TAKE 2 TABLETS BY MOUTH 4 TIMES A DAY Turmeric 400 MG capsule Oral PHYSICAL EXAM: Knee Musculoskeletal Exam Gait Gait is normal. Inspection Leg length disparity: no discrepancy Right Erythema: none Effusion: none Edema: none Ecchymosis: none Deformity: none Alignment: normal Previous incision: anterior Incision: well-healed Left Erythema: none Effusion: none Edema: none Ecchymosis: none Deformity: none Alignment: normal Previous incision: anterior Incision: well-healed Palpation Right Right knee palpation is unremarkable. Increased warmth: none Masses: none Tenderness: none Left Left knee palpation is unremarkable. Increased warmth: none Masses: none Tenderness: none Range of Motion Right Right knee range of motion is normal and full. Active extension: 5 Passive extension: 5 Active flexion: 115 Passive flexion: 115 Left Left knee range of motion is normal and full. Strength Right Right knee strength is normal. Extension: 5/5. Flexion: 5/5. Left Left knee strength is normal. Extension: 5/5. Flexion: 5/5. Instability Right Instability signs: none - stable Varus stress grade: normal Valgus stress grade: normal Left Instability signs: none - stable Varus stress grade: normal Valgus stress grade: normal Neurovascular Right Right knee neurovascular exam is normal. Pulses - PT: normal Posterior tibial: 2+ Capillary refill: warm and well-perfused Left Left knee neurovascular exam is normal. Pulses - PT: normal Posterior tibial: 2+ Capillary refill: warm and well-perfused Special Signs Right Right knee special signs are normal. Left Left knee special signs are normal. General Constitutional: appears stated age Labored breathing: no Psychiatric: normal mood and affect Neurological: alert Skin: intact Lymphadenopathy: none Vitals: There is no height or weight on file to calculate BMI. Tobacco Use: Medium Risk (05/03/2025) Patient History Smoking Tobacco Use: Former Smokeless Tobacco Use: Former Passive Exposure: Not on file Alcohol Use: Not At Risk (01/24/2020) Received from [facility] AUDIT-C Frequency of Alcohol Consumption: Never Average Number of Drinks: Not on file Frequency of Binge Drinking: Not on file IMAGING: XR knee 1 or 2 views right Imaging Result: AP and lateral of right knee showed surgical position and alignment of prosthetic components without evidence of loosening or wear to the femoral, tibial, or patellar components. The alignment appeared to be anatomic. There was no evidence of accelerated or asymmetric wear to the patellar button ortibial tray. There was no evidence of fracture and/or dislocation. Impression: Unremarkable right total knee arthroplasty. XR knee 1 or 2 views left Imaging Result: AP and lateral of left knee showed surgical position and alignment of prosthetic components withoutevidence of loosening or wear to the femoral, tibial, or patellar components. The alignment appeared to be anatomic. There was no evidence of accelerated or asymmetric wear to the patellar button or tibial tray. There was no evidence of fracture and/or dislocation. Impression: Unremarkable left total knee arthroplasty. Procedures Orders Placed This Encounter Procedures XR knee 1 or 2 views right Reason for exam:: Post-op XR knee 1 or 2 views left Reason for exam:: Post-op ASSESSMENT: ICD-10-CM 1. Pain and swelling of right knee M25.561 M25.461 2. History of total left knee replacement Z96.652 XR knee 1 or 2 views left 3. History of total right knee replacement Z96.651 XR knee 1 or 2 views right 4. Pain and swelling of left knee M25.562 M25.462 PLAN: We have discussed his physical exam, x-rays, and symptoms today at length. Patient states his kneesare both functioning well and is pleased with his progress. We will see him back in 1 year to repeat his knee x-rays. Questions answered in laymen terms at the bedside. The diagnosis, home exercise plan and any ongoing restrictions/ recommendations reviewed. If unable to be reached in office, I recommend evaluation at nearest Emergency Room if any symptoms worsened or new symptoms develop for requiring urgent evaluation. documented in this encounter Plan of Treatment Upcoming Encounters Date Type Department Care Team (Late st Contact Info) Description 03/28/2026 10:00 AM EDT Office Visit [facility] [address] [place] [address] Jr. Elias Veliz DO [address] [place] [address] 05/02/2026 10:00 AM EDT Office Visit [facility] [address] [place] [address] Jr. Elias Veliz, [address] [facility] [address] [place] [address] documented as of this encounter Procedures Procedure Name Priority Date/Time Associated Diagnosis Comments XR KNEE 1-2 VIEWS RIGHT Routine 05/03/2025 10:00 AM EDT History of total right knee replacement XR KNEE 1-2 VIEWS LEFT Routine 05/03/2025 10:00 AM EDT History of total left knee replacement documented in this encounter Results * XR knee 1 or 2 views left (05/03/2025 10:00 AM EDT) Anatomical Region Laterality Modality Lower Extremities, Knee Left Radiogra phic Imaging Narrative 05/03/2025 10:33 AM EDT Imaging Result: AP and lateral of left knee showed surgical position and alignment of prosthetic components without evidence of loosening or wear to the femoral, tibial, or patellar components. The alignment appeared to be anatomic. There was no evidence of accelerated or asymmetric wear to the patellar button or tibial tray. There was no evidence of fracture and/or dislocation. Impression: Unremarkable left total knee arthroplasty. Jr. Elias Veliz DO IMG XR PROCEDURES Final Result * XR knee 1 or 2 views right (05/03/2025 10:00 AM EDT) Anatomical Region Laterality Modality Lower Extremities, Knee Right Radiogra phic Imaging Narrative 05/03/2025 10:33 AM EDT Imaging Result: AP and lateral of right knee showed surgical position and alignment of prosthetic components without evidence of loosening or wear to the femoral, tibial, or patellar components. The alignment appeared to be anatomic. There was no evidence of accelerated or asymmetric wear to the patellar button or tibial tray. There was no evidence of fracture and/or dislocation. Impression: Unremarkable right total knee arthroplasty. us Jr. Elias Veliz DO IMG XR PROCEDURES Final Result documented in this encounter Visit Diagnoses Diagnosis Pain and swelling of right knee- Primary History of total left knee replacement History of total right knee replacement Pain and swelling of left knee documented in this encounter Care Teams Safety Representative Relationship Specialty Start Date End Date Norm Wang MD PCP - General Family Medicine 04/21/23 documented as of this encounter
--- OUTSIDE RECORDS SUMMARY | 2025-05-03 10:05 | XMS_ITS | Encounter Summary ---
Author Organization [facility] Address [address] [place] [address] Care Team Providers Care Liquid Floor And Wall Applier Name Role Phone Norm Wang MD Primary Care Provider [phone] Encounter Details Date Type Department Care Team (Late Contact Info) Description 05/03/2025 10:05 AM EDT Ancillary Procedure [facility] [address] [facility] [address] [place] [phone] Social History Tobacco Use Types Packs/Day Years Used Date Smoking Tobacco: Former Cigarettes Q uit: 2012 Smokeless Tobacco: Former Alcohol Use Standard Drinks/Week [...] 03/28/2026 10:00 AM EDT Office Visit [facility] [address] [facility] [address] [place] [phone] Jr. Elias Veliz, DO [address] [place] [address] 05/02/2026 10:00 AM EDT Office Visit [facility] [address] [facility] [address] [place] [address] Jr. Elias Veliz, DO [address] [place] [facility] [address] [place] [address] documented as of this encounter Procedures Procedure Name Priority Date/Time Associated Diagnosis Comments XR KNEE 1-2 VIEWS RIGHT Routine 05/03/2025 10:00 AM EDT History of total right knee replacement documented in this encounter Results * XR knee 1 or 2 views right (05/03/2025 10:00 AM EDT) Anatomical Region Laterality Modality Lower Extremities, Knee Right [facility] Narrative 05/03/2025 10:33 AM EDT Imaging [...] dislocation. Impression: Unremarkable right total knee arthroplasty. [facility] IMG XR PROCEDURES Final Result documented in this encounter Visit Diagnoses Not on filedocumented in this encounter Care Teams Liquid Floor And Wall Applier Relationship Specialty Start Date End Date Norm Wang MD PCP - General Family Medicine 04/21/23 documented as of this encounter
--- OUTSIDE RECORDS SUMMARY | 2025-05-03 10:10 | XMS_ITS | Encounter Summary ---
Author Organization [facility] Address [address] [place] [address] Care Team Providers Care Generating Station Mechanic Name Role Phone Norm Wang MD Primary Care Provider [phone] Encounter Details Date Type Department Care Team (Late Contact Info) Description 05/03/2025 10:10 AM EDT Ancillary Procedure [facility] [address] [facility] [address] [place] [phone] Social History Tobacco Use Types Packs/Day Years [...] 03/28/2026 10:00 AM EDT Office Visit [facility] [address] [facility] [address] [place] [phone] Jr. Elias Veliz, DO [address] [place] [address] 05/02/2026 10:00 AM EDT Office Visit [facility] [address] [facility] [address] [place] [address] Jr. Elias Veliz, DO [address] [facility] [address] [place] [address] documented as of this encounter Procedures Procedure Name Priority Date/Time Associated Diagnosis Comments XR KNEE 1-2 VIEWS LEFT Routine 05/03/2025 10:00 AM EDT History of total left knee replacement documented in this encounter Results * XR knee 1 or 2 views left (05/03/2025 10:00 AM EDT) Anatomical Region Laterality Modality Lower Extremities, Knee Left [facility] Narrative 05/03/2025 10:33 AM EDT Imaging [...] dislocation. Impression: Unremarkable left total knee arthroplasty. [facility] IMG XR PROCEDURES Final Result documented in this encounter Visit Diagnoses Not on filedocumented in this encounter Care Teams Generating Station Mechanic Relationship Specialty Start Date End Date Norm Wang MD PCP - General Family Medicine 04/21/23 documented as of this encounter
--- OUTSIDE RECORDS SUMMARY | 2025-05-16 11:47 | XMS_ITS | Referral Summary ---
Author Organization [facility] Address [address] [place] [address] Care Team Providers Care Kaiako Kura Kaupapa Maori Name Role Phone Unavailable Primary Care Provider Unavailabl e Social History Tobacco Use Types Packs/Day Years Used Date Smoking Tobacco: Never Assessed Sex and Gender Information Value Date Recorded Sex Assigned at Not on file Legal Sex Male 12:27 AM EDT Gender Identity Not on file Sexual Orientation Not on file Plan of Treatment Not on file
--- OUTSIDE RECORDS SUMMARY | 2025-05-16 11:47 | XMS_ITS | Clinical Summary ---
Author Organization [facility] Address [address] [place] [address] Care Team Providers Care Sailor Name Role Phone Norm Wang MD Primary Care Provider [phone] Allergies Active Allergy Reactions Criticality Noted Date Comments Cholestatin Unknown 03/19/2023 Medications Multiple Vitamins-Mcdowell als (CENTRUM ADULTS PO) Orally Active atorvastatin (Lipitor) [...] CAPSULE BY MOUTH 4 TIMES A DAY 12/17/19 23 Active cholecalcifero l (Vitamin D-3) 125 MCG (5000 UT) capsule Take 5,000 Units by mouth in the morning. Active sulfaSALAzine (Azulfidine) 500 MG EC tablet TAKE 2 TABLETS BY MOUTH 4 TIMES A DAY 03/25/20 23 Active omeprazole (PriLOSEC) [address] capsule Take 40 mg by mouth in the morning. Active mesalamine (Rowasa) 4 g enema as directed Rectal Active lisinopril 20 MG tablet 1 (one) time each day at the same time. Active Entyvio 300 MG injection 05/27/20 23 Active ferrous sulfate 325 (65 Fe) MG EC tablet Take 325 mg by mouth in the morning and 325 mg at noon and 325 mg in the evening. Take with meals. Do not crush, chew, or split. Active Turmeric 400 MG capsule Take by mouth Activ e methotrexate 2.5 MG tablet Take by mouth. Follow directions carefully, and ask to explain any part you do not understand. Take exactly as directed. Active tiZANidine (Zanaflex) 4 MG capsule Take 4 mg by mouth in the morning and 4 mg in the evening and 4 mg before bedtime. 025 Discontinued Active Problems Problem Noted Date Diagnosed Date [...] Encounters Date Type Department Care Team Description 05/03/2025 10:10 AM EDT Ancillary Procedure [facility] [address] [place] [address] 05/03/2025 10:05 AM EDT Ancillary Procedure [facility] [address] [place] [address] 05/03/2025 10:00 AM EDT Office Visit [facility] [address] [place] [address] Jr. Elias Veliz, DO Pain and swelling of right knee (Primary Dx); History of total left knee replacement; History of total right knee replacement; Pain and swelling of left knee 05/03/2025 Bamboo flowsheet [facility] [address] [place] [address] Jr. Elias Veliz, 05/03/2025 Travel 03/29/2025 10:00 AM EDT Office Visit [facility] [address] [place] [address] Jr. Elias Veliz, Pain of right hip (Primary Dx); Primary osteoarthritis of right hip; Arthritis of knee, left; History of total hip replacement, right 03/29/2025 9:55 AM EDT Ancillary Procedure [facility] [address] [place] [address] 03/29/2025 Bamboo flowsheet [facility] [address] [place] [phone] Jr. Elias Veliz, DO 03/29/2025 Travel from Last 3 Months Immunizations [...] 03/28/2026 10:00 AM EDT Office Visit [facility] [address] [place] [address] Jr. Elias Veliz, DO [address] [facility] [address] [place] [address] 05/02/2026 10:00 AM EDT Office Visit [facility] [place] [facility] [address] [place] [phone] Jr. Elias Veliz, DO [address] [place] [facility] [address] [place] [address] Health Maintenance Due Date Last Done Comments CT Colonography 1964 Colonoscopy 1964 Colorectal Cancer Screening 1964 FIT-DNA 1964 FIT 1964 FOBT 1964 Sigmoidoscopy 1964 Influenza Vaccine (Season Ended) 2025 09/27/2020, 10/28/2019, 08/29/2019, Additional history exists Procedures Procedure Name Priority Date/Time Associated Diagnosis Comments XR KNEE 1-2 VIEWS LEFT Routine 05/03/2025 10:00 AM EDT History of total left knee replacement XR KNEE 1-2 VIEWS RIGHT Routine 05/03/2025 10:00 AM EDT History of total right knee replacement XR HIP 2 OR 3 VW RIGHT Routine 03/29/2025 9:45 AM EDT Primary osteoarthritis of right hip from Last 3 Months Results * XR knee 1 or 2 [...] dislocation. Impression: Unremarkable right total knee arthroplasty. Jr. Elias Watters Stepseb DO IMG XR PROCEDURES Final Result * [...] IMG XR PROCEDURES Final Result * XR hip right 2 or 3 [...] Final Result from Last 3 Months Insurance [employer] Care Teams Sailor Relationship Specialty Start Date End Date Norm Wang MD PCP - General Family Medicine 04/21/23
--- OUTSIDE RECORDS SUMMARY | 2025-05-16 11:47 | XMS_ITS | Clinical Summary ---
Author Organization [facility] Address [address] [place] [address] Care Team Providers Care Feed House Supervisor Name Role Phone Unavailable Primary Care Provider [...]
--- OUTSIDE RECORDS SUMMARY | 2025-05-16 11:47 | XMS_ITS | Encounter Summary ---
Author Organization [facility] Address [address] [place] [address] Care Team Providers Care Patient Financial Advocate Name Role Phone Norm Wang MD Primary Care Provider [phone] Source Comments In the event this information is protected by the Federal Confidentiality of Alcohol and Drug AbusePatient Records regulations: The Federal rules restrict any use of the information to criminally investigate or prosecute any alcohol or drug abuse patient.[facility] Reason for Visit * Reason Comments Radiology XR Encounter Details Date Type Department Care Team (Late st Contact Info) Description 03/14/2024 Radiology Radiology [address] [place] [address] Ant Cesar RT(R) Radiology XR Social History [...] is lower risk 8 05/04/2023 Data from: https://www.neighborhoodatlas.medicine.[facility].edu/. Last address used for calculation Melissa BRAVO [...] PATIENT PRESENTS WITH AN IMPLANTABLE OR ATTACHED HEALTHCARE MANAGEMENT: No RADIOLOGY DEPARTMENT: General X-ray: Exam(s) Completed: Upper Extremity X- Ray(s): Hand, bilateral PERIPHERAL IV DATA: Not applicable SIGNED BY: RT Haim(R) March 14, 2024 11:11 AM documented in this encounter Plan of Treatment Upcoming Encounters Date Type Department Care Team (Late st Contact Info) Description 05/23/2025 8:00 AM EDT Results Only [facility] [address] [place] [address] [place] [address] labs 06/06/2025 7:45 AM EDT Appointment Radiology [address] [place] [id number] Seropositive rheumatoid arthritis (HCC) [M05.9] 06/06/2025 8:20 AM EDT Office Visit Rheumatology [address] [facility] [place] [address] Darrian Dubon MD [address] [facility] [place] [address] Return for May 2025 for RA and OP and review of DXA. 10/31/2025 10:00 AM EST Office Visit Rheumatology [address] [facility] [place] [address] Darrian Dubon MD [address] [place] [address] Please also offer another apt later in 2024 or early 2025 (please use 30 min slot) for RA/OP documented as of this encounter Visit Diagnoses Not on filedocumented in this encounter Care Teams Patient Financial Advocate Relationship Specialty Start Date End Date Norm Wang MD PCP - General Family Medicine 01/18/14 documented as of this encounter
--- OUTSIDE RECORDS SUMMARY | 2025-05-16 11:48 | XMS_ITS | Encounter Summary ---
Author Organization [facility] Address [address] [facility] [place] [address] Care Team Providers Care Lmsw Name Role Phone Norm Wang MD Primary Care Provider [phone] Encounter Details Date Type Department Care Team (Latest Contact Info) Description 05/03/2025 Travel Social History Tobacco Use Types Packs/Day Years [...] 03/28/2026 10:00 AM EDT Office Visit [facility] [address] [facility] [address] [place] [phone] Jr. Elias Veliz, DO [address] [facility] [address] [place] [address] 05/02/2026 10:00 AM EDT Office Visit [facility] [address] [facility] [address] [place] [phone] Jr. Elias Veliz, DO [address] [facility] [address] [place] [address] documented as of this encounter Visit Diagnoses Not on filedocumented in this encounter Care Teams Lmsw Relationship Specialty Start Date End Date Norm Wang MD PCP - General Family Medicine 04/21/23 documented as of this encounter
--- OUTSIDE RECORDS SUMMARY | 2025-05-16 11:48 | XMS_ITS | Clinical Summary ---
Author Organization [facility] Address [address] [place] [address] Care Team Providers Care Skein Yard Drier Name Role Phone Norm Wang MD Primary Care Provider [phone] Allergies No known active allergies Medications ezetimibe [...] mouth every afternoon. 3 11/02/20 23 Discontinued( Peach [employer]er Duplicate Med) Active Problems Problem Noted Date Diagnosed Date Osteoporosis 10/19/2018 Ulcerative pancolitis 02/05/2017 Encounter for monitoring of etanercept therapy 0 02/07/2016 Vitamin D deficiency 10/05/2015 Rheumatoid arthritis with positive rheumatoid fa ctor 09/12/2015 Encounters Date Type Department Care Team Description 03/23/2025 Orders Only Infusion [address] [place] [address] Freyd Farnsworth RPh 02/14/2025 7:20 AM EDT Office Visit Rheumatology [address] [facility] [place] [address] Darrian Dubon MD Seropositive rheumatoid arthritis (HCC) [...] is lower risk 8 05/04/2023 Data from: https://www.neighborhoodatlas.medicine.[facility]/. Last address used for calculation [address] [...] Description 05/23/2025 8:00 AM EDT Results Only [facility] [address] [place] [address] [place] [address] labs 06/06/2025 7:45 AM EDT Appointment Radiology [address] [place] [address] Seropositive rheumatoid arthritis (HCC) [M05.9] 06/06/2025 8:20 AM EDT Office Visit Rheumatology [address] [place] [address] Darrian Dubon MD [address] [place] [address] Return for May 2025 for RA and OP and review of DXA. 10/31/2025 10:00 AM EST Office Visit Rheumatology [address] [facility] [place] [address] Darrian Dubon MD [address] [facility] [address] [address] [place], [place] [id number] Please also offer another apt later in [...] - Risk 60-74 years 1-dose series) 2024 Medicare Advantage Annual We llness Visit 11/16/2024 Diabetes Screening 12/01/2026 12/01/2023, 1 , 02/10/2019, [...] COMP METABOLIC PANEL (12/01/2023 5:00 PM EST) Pathologist [facility] Protein, Total 8.0 6.3 - 8.0 g/dL 12/02/2023 6:09 AM [facility] Albumin 3.9 3.9 - 4.9 g/dL 12/02/2023 6:09 AM [facility] Calcium, Total 10.2 8.5 - 10.2 mg/dL 12/02/2023 6:09 AM [facility] Bilirubin, Total 0.3 0.2 - 1.3 mg/dL 12/02/2023 6:09 AM [facility] Alkaline Phosphatase 171(H) 38 - 113 U/L 12/02/2023 6:09 AM [facility] AST 31 14 - 40 U/L 12/02/2023 6:09 AM [facility] ALT 22 10 - 54 U/L 12/02/2023 6:09 AM [facility] Glucose 101(H) 74 - 99 mg/dL 12/02/2023 6:09 AM [facility] Comment: The [place] Diabetes Association (ADA) provides guidance for cutoff [...] Standards of Medical Care in Diabetes 2016, [place] [employer] Association. Diabetes Care. 2016.39(Suppl 1). BUN 19 9 - 24 mg/dL 12/02/2023 6:09 AM [facility] Creatinine 0.92 0.73 - 1.22 mg/dL 12/02/2023 6:09 AM EST [facility] Sodium 143 136 - 144 mmol/L 12/02/2023 6:09 AM [facility] Potassium 4.1 3.7 - 5.1 mmol/L 12/02/2023 6:09 AM [facility] Chloride 106(H) 97 - 105 mmol/L 12/02/2023 6:09 AM [facility] CO2 25 22 - 30 mmol/L 12/02/2023 6:09 AM [facility] Anion Gap 12 9 - 18 mmol/L 12/02/2023 6:09 AM [facility] Estimated Glomerular Filtration Rate 96 >=60 mL/min/1.7 3m 12/02/2023 6:09 AM [facility] Comment:Estimated Glomerular Filtration Rate (eGFR) is [...] 12/01/2023 5:02 PM EST us Nidia Ascencio TEACHER OF FAMILY [employer]ER SCIENCE.RN ONCOLOGY LABORATORY Final Res ult [facility] [address] [place] [address], * HEPATITIS C ANTIBODY IA WITH CONFIRMATION (12/01/2023 5:00 PM EST) Hep C Antibody IA Negative Negative 12/02/2023 9:58 AM [facility] Comment:The result suggests no evidence of active infection with Hepatitis C virus. Should recent infection be suspected, repeat testing may be considered 4-6 weeks after this draw. Blood BLOOD SPECIMEN / Unknown Venipuncture / Unknown 12/01/2023 5:00 PM EST 12/01/2023 5:02 PM EST us Nidia Ascencio [employer].RN ONCOLOGY LABORATORY Final Res ult [facility] [address] [facility] [address] [place] [address], [place] from Last 3 Months or Most Recently Relevant to Health [place] [place] [address] [facility] Care Teams Skein Yard Drier Relationship Specialty Start Date End Date Norm Wang MD PCP - General Family Medicine 01/18/14
--- OUTSIDE RECORDS SUMMARY | 2025-05-16 11:48 | XMS_ITS | Encounter Summary ---
Author Organization [facility] Address [address] [facility] [place] [address] Care Team Providers Care Pressurised Container Filler Name Role Phone Norm Wang MD Primary Care Provider [phone] Encounter Details Date Type Department Care Team (Late Contact Info) Description 05/03/2025 Bamboo flowsheet [facility] [address] [facility] [address] [place] [phone] Jr. Elias Veliz, DO [address] [facility] [address] [place] [address] Social History Tobacco Use Types Packs/Day Years [...] Encounters Date Type Department Care Team (Late Contact Info) Description 03/28/2026 10:00 AM EDT Office Visit [facility] [address] [facility] [address] [place] [phone] Jr. Elias Veliz, DO [address] [place] [address] 05/02/2026 10:00 AM EDT Office Visit [facility] [address] [place] [phone] Jr. Elias Veliz, DO [address] [place] [address] documented as of this encounter Visit Diagnoses Not on filedocumented in this encounter Care Teams Pressurised Container Filler Relationship Specialty Start Date End Date Norm Wang MD PCP - General Family Medicine 04/21/23 documented as of this encounter
--- OUTSIDE RECORDS SUMMARY | 2025-05-16 11:48 | XMS_ITS | Encounter Summary ---
Author Organization [facility] Address [address] [place] [address] Care Team Providers Care Debeaker Name Role Phone Norm Wang MD Primary Care Provider [phone] Source Comments In the event this information is protected by the Federal Confidentiality of Alcohol and Drug AbusePatient Records regulations: The Federal rules restrict any use of the information to criminally investigate or prosecute any alcohol or drug abuse patient.[facility] Encounter Details Date Type Department Care Team (Late st Contact Info) Description 10/08/2015 Patient Msg Medical Records [address] [place] [id number] Provider, [facility] results Social History Tobacco Use [...] 05/23/2025 8:00 AM EDT Results Only [facility] [address] [place] [address] [place] [address] labs 06/06/2025 7:45 AM EDT Appointment Radiology [address] [place] [address] Seropositive rheumatoid arthritis (HCC) [M05.9] 06/06/2025 8:20 AM EDT Office Visit Rheumatology [address] [facility] [place] [address] Darrian Dubon MD [address] [facility] [place] [address] Return for May 2025 for RA and OP and review of DXA. 10/31/2025 10:00 AM EST Office Visit Rheumatology [address] [facility] [place] [address] Darrian Dubon MD [address] [facility] [place] [address] Please also offer another apt later in 2024 or early 2025 (please use 30 min slot) for RA/OP documented as of this encounter Visit Diagnoses Not on filedocumented in this encounter Care Teams Debeaker Relationship Specialty Start Date End Date Norm Wang MD PCP - General Family Medicine 01/18/14 documented as of this encounter
[2025-05-16 12:23] LABS: Hematocrit 33.5 % (42.0-54.0); Hemoglobin 10.9 g/dL (14.0-18.0); Immature Granulocytes Abs Auto 0.02 10^3/uL (0.00-0.03); Immature Granulocytes Pct Auto 0.3 % (0.0-0.5); Lymphocytes Absolute Auto 1.5 10^3/uL (1.2-3.8); Mean Corpuscular HGB Conc 32.5 g/dL (29.9-35.2); Mean Corpuscular Hemoglobin 29.7 pg (25.9-34.0); Mean Corpuscular Volume 91.3 fL (80.0-94.0); Platelet Count 333 10^3/uL (150-450); Red Blood Count 3.67 10^6/uL (4.70-6.10); White Blood Count 6.3 10^3/uL (4.0-11.0)
[2025-05-16 13:19] LABS: Iron 52.0 ug/dL (65.0-175.0)
[2025-05-16 13:24] LABS: Alanine Aminotransferase 26 U/L (16-63); Albumin Globulin Ratio 0.7; Albumin Level 3.0 g/dL (3.4-5.0); Alkaline Phosphatase 129 U/L (46-116); Anion Gap 13.9; Aspartate Amino Transferase 18 U/L (15-37); Blood Urea Nitrogen 13.0 mg/dL (7.0-18.0); Calcium 9.1 mg/dL (8.5-10.1); Carbon Dioxide 26.2 mmol/L (21.0-32.0); Chloride 106 mmol/L (98-107); Estimated GFR (African America >60 (>=60 mL/min/1.73m^2); Estimated GFR (Non-African Ame >60 (>=60 mL/min/1.73m^2); Globulin 4.2 g/dL; Glucose 136 mg/dL (74-106); Potassium 3.1 mmol/L (3.5-5.1); Sodium 143 mmol/L (136-145); Total Protein 7.2 g/dL (6.4-8.2)
== END 2025-05-16 11:34 | disposition home or self-care (01) ==
PROVIDERS: PCP Family Medicine; Visit Provider Family Medicine
DX: Z79.899 Other long term (current) drug therapy (principal); D50.9 Iron deficiency anemia, unspecified
CPT/HCPCS: 36415; 80053; 83540; 85025

== ENCOUNTER 2025-05-26 07:34 | Outpatient (RCR) | payer OTHER, SELFPAY ==
[2025-05-26 08:30] VITALS: BP 104/71; PULSE 98; TEMP 36.8; O2SAT 93
[2025-05-26] MEDS: IRON SUCROSE COMPLEX 300 MG in 0.9 % SODIUM CHLORIDE 250 ML 176.667 MG IV (08:42)
--- NOTE | 2025-05-26 09:45 | PC.NURSE ---
Tolerating iron infusion without c/o.
== END 2025-06-15 23:59 | disposition home or self-care (01) ==
LOC: INF 07:34
PROVIDERS: PCP Family Medicine; Visit Provider Family Medicine
DX: D50.9 Iron deficiency anemia, unspecified (principal)
CPT/HCPCS: 96365; 96366; J1756

== ENCOUNTER 2025-06-16 07:54 | Outpatient (OUT) | payer OTHER, SELFPAY ==
--- OUTSIDE RECORDS SUMMARY | 2025-04-13 14:19 | XMS_ITS ---
Author Organization [facility] in [place] Address [address] [place] [address] Care Team Providers Care Nurse Emergency Name Role Phone Toi Wang Primary Care Provider REASON FOR VISIT labs Encounters Encounter Location Date Provider Diagnosis [id number] [place] [address] 04/13/2025 Toi Wang Plan Of Treatment No Information Progress Notes * James SHANKS LDOB:[birth year] (59 yo M)Acc No.[id number]:04/13/2025 Patient: Dariana James LOERA :1965 A ge:59 Y S ex:Male Address:[facility] [place] [address] * true * Date: Generated for Printi ng/Faxing/eTransmitting on: 0 06/16/2025 08:02 AM EDT
--- OUTSIDE RECORDS SUMMARY | 2025-05-16 16:20 | XMS_ITS ---
Author Organization [facility] [place] Address [address] [place] [address] Care Team Providers Care Service Station Equipment Mechanic Name Role Phone Toi Wang Primary Care Provider [phone] REASON FOR VISIT Lab Results Medications Medication SIG (Take, Route, Frequency, Duration) Notes Start Date End Date Status Potassium Chloride ER 10 MEQ 1 tablet with food Orally Twice Daily for 30 days 05/17/2025 Active Ferrous Sulfate 325 (65 Fe) MG 1 tablet Orally bid for 30 days 03/02/2025 Active Encounters Encounter Location Date Provider Diagnosis [address] [phone] 05/16/2025 Toi Wang Plan Of Treatment Medication Medication Name Sig Start Date Stop Date Notes Potassium Chloride ER 10 MEQ 1 tablet wi th food Orally Twice Daily for 30 days 05/17/2025 Ferrous Sulfate 325 (65 Fe) MG 1 tablet Orally bid for 30 days 03/02/2025 Progress Notes * James SHANKS LDOB:[birth year] (60 yo M)Acc No.[id number]:05/16/2025 Patient: Dariana James LOERA :1965 A ge:60 Y S ex:Male Address:[facility] [place] [address] [place] [address] * Refills Start Potassium Chloride ER Capsule Extended Release, 10 MEQ, Orally, 60, 1 tablet with food, Twice Daily, 30 days, Refills=11 Refill Ferrous Sulfate Tablet, 325 (65 Fe) MG, Orally, 60 Tablet, 1 tablet, bid, 30 days, Refills=11 * true * Date: Generated for Albina trinh/Ayden/eTransmitting on: 0 06/16/2025 08:02 AM EDT
--- OUTSIDE RECORDS SUMMARY | 2025-05-23 05:06 | XMS_ITS ---
Author Organization [facility] [place] Address [address] [place] [address] Care Team Providers Care Phys Therapist Name Role Phone Toi Wang Primary Care Provider REASON FOR VISIT Iron/ procedure Encounters Encounter Location Date Provider Diagnosis [facility] [address] [place] [address] 05/23/2025 Toi Wang Plan Of Treatment No Information Progress Notes * James SHANKS LDOB:[birth year] (60 yo M)Acc No.[id number]:05/23/2025 Patient: Dariana James LOERA :1965 A ge:60 Y S ex:Male Address:[facility] [place] [place] [address] * true * Date: Generated for Printi ng/Faxing/eTransmitting on: 0 06/16/2025 08:02 AM EDT
--- OUTSIDE RECORDS SUMMARY | 2025-06-06 07:45 | XMS_ITS | Encounter Summary ---
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 Name Role Phone Norm Wang MD Primary Care Provider [phone] Comments In the event this information is protected by the Federal Confidentiality of Alcohol and Drug AbusePatient Records regulations: The Federal rules restrict any use of the information to criminally investigate or prosecute any alcohol or drug abuse patient.[facility] Reason for Visit * Diagnostic Procedure Only (Routine) - Closed Specialty Diagnoses / Procedures Referred By Contac t Referred To Contact XR IMAGING Diagnoses Seropositive rheumatoid arthritis (HCC) Ulcerative pancolitis (HCC) Other osteoporosis without current pathological fracture History of bisphosphonate therapy Procedures DXA-AXIAL SKELETON DXA BONE DENSITY STUDY 1/> SITES AXIAL Spencer Tran MD [address] [place] [address] Phone: tel: fax: [place] [address] Referral ID Status Reason Start Date Expiration Date V isits Requested Visits Authorized [id number] Closed Auto-Generate d Referral 04/25/2025 11/15/2025 1 1 Encounter Details Date Type Department Care Team (Latest Contact Info) Description 06/06/2025 7:45 AM EDT - 06/06/2025 11:59 PM EDT Hospital Encounter Radiology [address] [place] [address] Seropositive rheumatoid arthritis (HCC) [M05.9] Discharge Disposition: Home Social History Tobacco Use Types Packs/Day Years [...] is lower risk 8 05/04/2023 Data from: https://www.neighborhoodatlas.medicine.[facility] Last address used for calculation [address] 05/04/2023 Sex and Gender Information Value Date Recorded Sex Assigned at Not on file Legal Sex Male 3:19 PM EST Gender Identity Not on file Sexual Orientation Not on file documented as of this encounter Medications at Time of Discharge ferrous sulfate 325 mg (65 mg iron) tablet 1 tablet Orally bid for 30 days 03/02/2025 potassium chloride SR (MICRO-K) 10 mEq CR capsule 1 tablet with food Orally Twice Daily for 30 days 05/17/2025 tiZANidine (ZANAFLEX) 4 mg tablet Take 8 mg by mouth daily at bedtime. methotrexate 2.5 mg tablet TAKE 4 TABLETS BY MOUTH WEEKLY ENTYVIO 300 mg injection 08/11/2024 sulfaSALAzine EC (AZULFIDINE EN) 500 mg EC tablet TAKE 2 TABLETS BY MOUTH 4 TIMES A DAY 11/03/2023 folic acid 1 mg tablet Take 1 mg by mouth once daily. 0 08/03/2018 Cholecalciferol, Vitamin D3, 5,000 unit cap Take [...] CHEWABLE MULTI VITAMIN ORAL Take by mouth. documented as of this encounter Progress Notes * Blayne Denis RT(R) - 06/06/2025 7:45 AM EDT Radiology Service Progress Note PATIENT NAME: James Toscano DATE OF SERVICE: June 06, 2025 TIME: 8:12 AM PATIENT IDENTITY VERIFICATION COMPLETED USING TWO (2) IDENTIFIERS: Name and Date of confirmedby patient verbally. FALL SCREENING: Has the patient had 2 falls in the last year or 1 fall with injury or currently using an Ambulatory Assistive Device (Walker, Cane, Wheelchair, Crutches, etc.)? No PATIENT GENDER DATA: Assigned male at PATIENT RELEVANT IMPLANT DATA REVIEWED: Not Applicable PATIENT PRESENTS WITH AN IMPLANTABLE OR ATTACHED HSE COORDINATOR: No RADIOLOGY DEPARTMENT: Bone Density PERIPHERAL IV DATA: Not applicable SIGNED BY: RT Humza(Andrez) June 06, 2025 8:12 AM documented in this encounter Plan of Treatment Upcoming Encounters Date Type Department Care Team (Late st Contact Info) Description 10/31/2025 10:00 AM EST Office Visit Rheumatology [address] [place] [address] Spencer Dubon MD [address] [place] [address] Please also offer another apt later in 2024 or early 2025 (please use 30 min slot) for RA/OP documented as of this encounter Procedures Procedure Name Priority Date/Time Associated Diagnosis Comments BD DXA TRABECULAR BONE SCORE (TBS) Routine 06/06/2025 8:13 AM EDT Seropositive rheumatoid arthritis (HCC) Ulcerative pancolitis (HCC) Other osteoporosis without current pathological fracture History of bisphosphonate therapy DXA-AXIAL SKELETON Routine 06/06/2025 8: 13 AM EDT Seropositive rheumatoid arthritis (HCC) Ulcerative pancolitis (HCC) Other osteoporosis without current pathological fracture History of bisphosphonate therapy documented in this encounter Results * BD DXA TRABECULAR BONE SCORE (TBS) (06/06/2025 8:13 AM EDT) LOWEST T-SCORE -2.1 [facility] Anatomical Region Laterality Modality Other 06/06/2025 8:13 AM EDT Impressions 06/12/2025 5:24 PM EDT IMPRESSION: THE LOWEST T-SCORE IS -2.1 IN THE LEFT HIP 1) DIAGNOSIS (based on BMD alone): OSTEOPENIA Caution: Medical conditions other than osteoporosis may cause low bone density, such as osteomalacia or renal osteodystrophy. Clinical correlation is necessary. 2) FRACTURE RISK (based on BMD and TBS) - MEDIUM - Caution: Fracture risk may be increased independent of BMD in patients with corticosteroid use, age greater than 65 years, or a history of prior fragility fracture. - FRAX was not calculated: bisphosphonate currently or within the last 2 years RECOMMENDATIONS: Follow-up in 2 years or as clinically indicated. Patients that are taking corticosteroids, are transplant recipients or have hyperparathyroidism should have annual follow-up. Follow-up scans should always be done on the same machine for accurate comparison. FOR MORE INFORMATION ABOUT DIAGNOSIS AND TREATMENT: [facility] [place] Center for Osteoporosis and Metabolic Bone Disease:? www.ccf.org/arthritis/osteo National Osteoporosis Foundation:? www.nof.org International Society of Clinical Densitometry www.iscd.org Search Strategist: [id number] Transcribe Date/Time: Jun 06 2025 8:19A Dictated by : SPENCER DUBON MD This examination was interpreted and the report reviewed and electronically signed by: SPENCER DUBON MD on Jun 12 2025 5:22PM EST Narrative 06/12/2025 5:24 PM EDT * * *Final Report* * * DATE OF EXAM: Jun 06 2025 8:13AM LNB 0801 - BD DXA TRABECLR BONE SCORE (TBS) / PROCEDURE REASON: multiple diagnoses * * * * Physician Interpretation * * * * EXAMINATION: DXA BONE DENSITOMETRY BD DXA - AXIAL SKELETON, BD DXA TRABECULAR BONE SCORE (TBS) PATIENT DEMOGRAPHICS: Age: 60 years, Gender: Male SCANNER INFORMATION: DXA Model: 1spire [id number] Date Scanned: 06/06/2025 8:13 AM CLINICAL HISTORY: DIAGNOSTIC Seropositive rheumatoid arthritis (HCC) Ulcerative pancolitis (HCC) Other osteoporosis without current pathological fracture History of bisphosphonate therapy. RISK FACTORS FOR OSTEOPOROSIS AND ASSOCIATED FRACTURES REPORTED BY THIS PATIENT: Please refer to Bone Health Questionnaire in the EMR CURRENT THERAPY: Please refer to Bone Health Questionnaire in the EMR TECHNICAL LIMITATIONS: Degenerative disease of the spine RESULTS: Comparison made to prior DXA dated: 09/23/2022 Lumbar Spine (L1, L2): Total BMD: 0.902 g/cm2, T-score: -1.4, Z-score: -0.7 Prior Lumbar spine: 0.841 g/cm2 Statistically significant increase Left Femoral Neck: 0.644 g/cm2, T-score -2.1, Z-score -1.1 Prior Left Femoral Neck: 0.589 g/cm2 Statistically significant increase Left Total Hip: 0.716 g/cm2, T-score -2.1, Z-score -1.6 Prior Left Total Hip: 0.671 g/cm2 Statistically significant increase CHANGE IS STATISTICALLY SIGNIFICANT IN THE SPINE OR HIP IF GREATER THAN OR EQUAL TO 0.04 g/cm2 VERTEBRAL FRACTURE ASSESSMENT Not performed. TRABECULAR BONE ASSESSMENT TBS score: 1.308 Bone micro-architecture: Partially Degraded : partially degraded (1.231 - 1.310) Procedure Note Provider, [facility] [place] - 06/12/2025 * * *Final Report* * * DATE OF EXAM: Jun 06 2025 8:13AM [facility] 0801 - DXA TRABECLR BONE SCORE (TBS) / PROCEDURE REASON: multiple diagnoses * * * * Physician Interpretation * * * * EXAMINATION: DXA BONE DENSITOMETRY BD DXA - AXIAL SKELETON, BD DXA TRABECULAR BONE SCORE (TBS) PATIENT DEMOGRAPHICS: Age: 60 years, Gender: Male SCANNER INFORMATION: DXA Model: 1spire [id number] Date Scanned: 06/06/2025 8:13 AM CLINICAL HISTORY: DIAGNOSTIC Seropositive rheumatoid arthritis (HCC) Ulcerative pancolitis (HCC) Other osteoporosis without current pathological fracture History of bisphosphonate therapy. RISK FACTORS FOR OSTEOPOROSIS AND ASSOCIATED FRACTURES REPORTED BY THIS PATIENT: Please refer to Bone Health Questionnaire in the EMR CURRENT THERAPY: Please refer to Bone Health Questionnaire in the EMR TECHNICAL LIMITATIONS: Degenerative disease of the spine RESULTS: Comparison made to prior DXA dated: 09/23/2022 Lumbar Spine (L1, L2): Total BMD: 0.902 g/cm2, T-score: -1.4, Z-score: -0.7 Prior Lumbar spine: 0.841 g/cm2 Statistically significant increase Left Femoral Neck: 0.644 g/cm2, T-score -2.1, Z-score -1.1 Prior Left Femoral Neck: 0.589 g/cm2 Statistically significant increase Left Total Hip: 0.716 g/cm2, T-score -2.1, Z-score -1.6 Prior Left Total Hip: 0.671 g/cm2 Statistically significant increase CHANGE IS STATISTICALLY SIGNIFICANT IN THE SPINE OR HIP IF GREATER THAN OR EQUAL TO 0.04 g/cm2 VERTEBRAL FRACTURE ASSESSMENT Not performed. TRABECULAR BONE ASSESSMENT TBS score: 1.308 Bone micro-architecture: Partially Degraded : partially degraded (1.231 - 1.310) IMPRESSION IMPRESSION: THE LOWEST T-SCORE IS -2.1 IN THE LEFT HIP 1) DIAGNOSIS (based on BMD alone): OSTEOPENIA Caution: Medical conditions other than osteoporosis may cause low bone density, such as osteomalacia or renal osteodystrophy. Clinical correlation is necessary. 2) FRACTURE RISK (based on BMD and TBS) - MEDIUM - Caution: Fracture risk may be increased independent of BMD in patients with corticosteroid use, age greater than 65 years, or a history of prior fragility fracture. - FRAX was not calculated: bisphosphonate currently or within the last 2 years RECOMMENDATIONS: Follow-up in 2 years or as clinically indicated. Patients that are taking corticosteroids, are transplant recipients or have hyperparathyroidism should have annual follow-up. Follow-up scans should always be done on the same machine for accurate comparison. FOR MORE INFORMATION ABOUT DIAGNOSIS AND TREATMENT: [facility] [place] [facility] for Osteoporosis and Metabolic Bone Disease:? www.ccf.org/arthritis/osteo National Osteoporosis Foundation:? www.nof.org International Society of Clinical Densitometry www.iscd.org Search Strategist: [id number] Transcribe Date/Time: Jun 06 2025 8:19A Dictated by : SPENCER DUBON MD This examination was interpreted and the report reviewed and electronically signed by: SPENCER DUBON MD on Jun 12 2025 5:22PM EST Spencer Dubon MD RAD[facility] Final Resul t * DXA-AXIAL SKELETON (06/06/2025 8:13 AM EDT) LOWEST T-SCORE -2.1 [facility] RAD[facility] Anatomical Region Laterality Modality Other 06/06/2025 8:13 AM EDT Impressions 06/12/2025 5:24 PM EDT IMPRESSION: THE LOWEST T-SCORE IS -2.1 IN THE LEFT HIP 1) DIAGNOSIS (based on BMD alone): OSTEOPENIA Caution: Medical conditions other than osteoporosis may cause low bone density, such as osteomalacia or renal osteodystrophy. Clinical correlation is necessary. 2) FRACTURE RISK (based on BMD and TBS) - MEDIUM - Caution: Fracture risk may be increased independent of BMD in patients with corticosteroid use, age greater than 65 years, or a history of prior fragility fracture. - FRAX was not calculated: bisphosphonate currently or within the last 2 years RECOMMENDATIONS: Follow-up in 2 years or as clinically indicated. Patients that are taking corticosteroids, are transplant recipients or have hyperparathyroidism should have annual follow-up. Follow-up scans should always be done on the same machine for accurate comparison. FOR MORE INFORMATION ABOUT DIAGNOSIS AND TREATMENT: [facility] [place] [facility] for Osteoporosis and Metabolic Bone Disease:? www.ccf.org/arthritis/osteo National Osteoporosis Foundation:? www.nof.org International Society of Clinical Densitometry www.iscd.org Search Strategist: [id number] Transcribe Date/Time: Jun 06 2025 8:19A Dictated by : SPENCER DUBON MD This examination was interpreted and the report reviewed and electronically signed by: SPENCER DUBON MD on Jun 12 2025 5:22PM EST Narrative 06/12/2025 5:24 PM EDT * * *Final Report* * * DATE OF EXAM: Jun 06 2025 8:13AM [facility] 0804 - BD DXA - AXIAL SKELETON / PROCEDURE REASON: multiple diagnoses * * * * Physician Interpretation * * * * EXAMINATION: DXA BONE DENSITOMETRY BD DXA - AXIAL SKELETON, BD DXA TRABECULAR BONE SCORE (TBS) PATIENT DEMOGRAPHICS: Age: 60 years, Gender: Male SCANNER INFORMATION: DXA Model: 1spire [id number] Date Scanned: 06/06/2025 8:13 AM CLINICAL HISTORY: DIAGNOSTIC Seropositive rheumatoid arthritis (HCC) Ulcerative pancolitis (HCC) Other osteoporosis without current pathological fracture History of bisphosphonate therapy. RISK FACTORS FOR OSTEOPOROSIS AND ASSOCIATED FRACTURES REPORTED BY THIS PATIENT: Please refer to Bone Health Questionnaire in the EMR CURRENT THERAPY: Please refer to Bone Health Questionnaire in the EMR TECHNICAL LIMITATIONS: Degenerative disease of the spine RESULTS: Comparison made to prior DXA dated: 09/23/2022 Lumbar Spine (L1, L2): Total BMD: 0.902 g/cm2, T-score: -1.4, Z-score: -0.7 Prior Lumbar spine: 0.841 g/cm2 Statistically significant increase Left Femoral Neck: 0.644 g/cm2, T-score -2.1, Z-score -1.1 Prior Left Femoral Neck: 0.589 g/cm2 Statistically significant increase Left Total Hip: 0.716 g/cm2, T-score -2.1, Z-score -1.6 Prior Left Total Hip: 0.671 g/cm2 Statistically significant increase CHANGE IS STATISTICALLY SIGNIFICANT IN THE SPINE OR HIP IF GREATER THAN OR EQUAL TO 0.04 g/cm2 VERTEBRAL FRACTURE ASSESSMENT Not performed. TRABECULAR BONE ASSESSMENT TBS score: 1.308 Bone micro-architecture: Partially Degraded : partially degraded (1.231 - 1.310) Procedure Note Provider, [facility] - 06/12/2025 * * *Final Report* * * DATE OF EXAM: Jun 06 2025 8:13AM [facility] 0804 - DXA - AXIAL SKELETON / PROCEDURE REASON: multiple diagnoses * * * * Physician Interpretation * * * * EXAMINATION: DXA BONE DENSITOMETRY BD DXA - AXIAL SKELETON, BD DXA TRABECULAR BONE SCORE (TBS) PATIENT DEMOGRAPHICS: Age: 60 years, Gender: Male SCANNER INFORMATION: DXA Model: 1spire [id number] Date Scanned: 06/06/2025 8:13 AM CLINICAL HISTORY: DIAGNOSTIC Seropositive rheumatoid arthritis (HCC) Ulcerative pancolitis (HCC) Other osteoporosis without current pathological fracture History of bisphosphonate therapy. RISK FACTORS FOR OSTEOPOROSIS AND ASSOCIATED FRACTURES REPORTED BY THIS PATIENT: Please refer to Bone Health Questionnaire in the EMR CURRENT THERAPY: Please refer to Bone Health Questionnaire in the EMR TECHNICAL LIMITATIONS: Degenerative disease of the spine RESULTS: Comparison made to prior DXA dated: 09/23/2022 Lumbar Spine (L1, L2): Total BMD: 0.902 g/cm2, T-score: -1.4, Z-score: -0.7 Prior Lumbar spine: 0.841 g/cm2 Statistically significant increase Left Femoral Neck: 0.644 g/cm2, T-score -2.1, Z-score -1.1 Prior Left Femoral Neck: 0.589 g/cm2 Statistically significant increase Left Total Hip: 0.716 g/cm2, T-score -2.1, Z-score -1.6 Prior Left Total Hip: 0.671 g/cm2 Statistically significant increase CHANGE IS STATISTICALLY SIGNIFICANT IN THE SPINE OR HIP IF GREATER THAN OR EQUAL TO 0.04 g/cm2 VERTEBRAL FRACTURE ASSESSMENT Not performed. TRABECULAR BONE ASSESSMENT TBS score: 1.308 Bone micro-architecture: Partially Degraded : partially degraded (1.231 - 1.310) IMPRESSION IMPRESSION: THE LOWEST T-SCORE IS -2.1 IN THE LEFT HIP 1) DIAGNOSIS (based on BMD alone): OSTEOPENIA Caution: Medical conditions other than osteoporosis may cause low bone density, such as osteomalacia or renal osteodystrophy. Clinical correlation is necessary. 2) FRACTURE RISK (based on BMD and TBS) - MEDIUM - Caution: Fracture risk may be increased independent of BMD in patients with corticosteroid use, age greater than 65 years, or a history of prior fragility fracture. - FRAX was not calculated: bisphosphonate currently or within the last 2 years RECOMMENDATIONS: Follow-up in 2 years or as clinically indicated. Patients that are taking corticosteroids, are transplant recipients or have hyperparathyroidism should have annual follow-up. Follow-up scans should always be done on the same machine for accurate comparison. FOR MORE INFORMATION ABOUT DIAGNOSIS AND TREATMENT: [facility] [place] [facility] for Osteoporosis and Metabolic Bone Disease:? www.ccf.org/arthritis/osteo National Osteoporosis Foundation:? www.nof.org International Society of Clinical Densitometry www.iscd.org Search Strategist: [id number] Transcribe Date/Time: Jun 06 2025 8:19A Dictated by : SPENCER DUBON MD This examination was interpreted and the report reviewed and electronically signed by: SPENCER DUBON MD on Jun 12 2025 5:22PM EST Spencer Dubon MD RAD-[facility] Final Resul t documented in this encounter Visit Diagnoses Diagnosis Seropositive rheumatoid arthritis (HCC) Rheumatoid arthritis Ulcerative pancolitis (HCC) [place] ulcerative (chronic) colitis Other osteoporosis without current pathological fracture History of bisphosphonate therapy Personal history of other drug therapy documented in this encounter Care Teams Nuclear Power Plant Engineer Relationship Specialty Start Date End Date Norm Wang MD PCP - General Family Medicine 01/18/14 documented as of this encounter
--- OUTSIDE RECORDS SUMMARY | 2025-06-06 08:20 | XMS_ITS | Encounter Summary ---
Author Organization [facility] Address [address] [place] [id number] Care Team Providers Care Oracle Database Manager Name Role Phone Jose L Wang MD Primary Care Provider [phone] Source Comments In the event this information is protected by the Federal Confidentiality of Alcohol and Drug AbusePatient Records regulations: The Federal rules restrict any use of the information to criminally investigate or prosecute any alcohol or drug abuse patient.[facility] Reason for Visit * Reason Comments Follow Up Encounter Details Date Type Department Care Team (Latest Contact Info) Description 06/06/2025 8:20 AM EDT Office Visit Rheumatology [address] [place] [address] Darrian Dubon MD [address] [place] [address] Seropositive rheumatoid arthritis (HCC) (Primary Dx); Rheumatoid arthritis 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); On methotrexate therapy; On sulfasalazine therapy; Ulcerative pancolitis (HCC); Osteopenia of multiple sites; History of osteoporosis; History of bisphosphonate therapy; Encounter to discuss test results; Encounter for medication review and counseling; Counseling on health promotion and disease prevention Social History Tobacco Use Types Packs/Day Years [...] risk 8 05/04/2023 Data from: https://www.neighborhoodatlas.medicine.[facility]/. Last address used for calculation [address] 05/04/2023 Sex and Gender Information Value Date Recorded Sex Assigned at Not on file Legal Sex Male 3:19 PM EST Gender Identity Not on file Sexual Orientation Not on file documented as of this encounter Last Filed Vital Signs Vital Sign Reading Time Taken Comments Blood Pressure 124/62 06/06/2025 8:17 AM EDT Pulse 66 06/06/2025 8:17 AM EDT Temperature - - Respiratory Rate - - Oxygen Saturation - - Inhaled Oxygen Concentration - - Weight 75.3 kg (166 lb) 06/06/2025 8:17 AM EDT Height - - Body Mass Index 26.81 02/02/2020 8:37 AM EDT documented in this encounter Patient Instructions * Patient Instructions* Darrian Dubon MD - 06/06/2025 8:46 AM EDT -PLEASE NOTE THAT WE REVIEW ALL YOUR TEST RESULTS AT YOUR NEXT FOLLOW UP VISIT WITH YOU. IF ANY ABNORMAL LAB REQUIRES SOONER ATTENTION, WE WILL CONTACT YOU. -If you have signed up on [employer], we will release your test results through [employer]. I wish you the best of health [...] system. I have included additional information below. Be happy as often as possible and focus on your wellness and wellbeing. -Continuous follow up with Primary care physician, for cardiovascular disease prevention, for age appropriate cancer screening and routine health maintenance and wellness, and infection precautions and age appropriate immunization, is recommended. Please review the information I provided you. Instructions and Recommendations: Please continue to take care, continue with your strength training exercises and take precautions from falls and fracture risk. I respect your opinion and your preference to avoid traveling to our clinic for your RA care. I understand that you are receiving great care with your Primary care physician, with Dr. Wang. You can continue following with Dr. Wang for your RA. I remain available if Dr. Wang needs to call meto discuss your RA. Continue following with your [place] Technician. Great work on your bone density. You have reversed your Osteoporosis to Osteopenia and you gained bone density at your spine and hip. Continue taking precautions with falls and avoid taking systemic steroids when possible. Great work on your exercise and walking. -Your phosphorus was low, please increase foods rich in phosphorus such as: dates, beans, lentils, peas, artichokes, avocados, nuts and seeds, whole grain bran (with cereal for example), oatmeal, tofu, soymilk... Your Primary care physician, Dr. Wang, can recheck that with your next labs. - Continue on the Vitamin D: 5000 international units once daily with meals Vitamin B12: 500 to 1000 mcg once daily Turmeric once daily as you have been doing (avoid curcumin extract as it can lead to liver adverse effect) METHOTREXATE INSTRUCTIONS Methotrexate is a type of chemotherapy drug that has revolutionized the treatment of rheumatoid/psoriatic arthritis. It has also been used with success in the treatment of other types of arthritis and autoimmune diseases. Taken correctly, at the recommended dose this medication is usually very safe. You should take all your pills/liquid on the same day every week. You SHOULD NOT break up the doseover more than 1 day. You must take your folic acid once daily 7 days a week (alternatively if can be taken for 6 days a week, except the day you take your methotrexate). Because methotrexate can potentially suppress your bone marrow or cause some liver toxicity it is important that you check your b lood tests every month for the first 3 months after starting therapy and then every 3-6 months thereafter. Failure to do your lab work could result in missing early toxicity from treatment which could result in serious consequences. Further information is available from the following web-sites: www.arthritis.org www.rheummates.org METHOTREXATE LAB INSTRUCTIONS: *Your blood must be tested every 3 months while taking methotrexate. Please schedule your appointment to have blood drawn for 1-2 days before that week's dose is due. In other words, if your weekly dose is to be taken on Thursday, please schedule the lab appointment for the Thursday or Thursday of that week . *Take all of your methotrexate all at one time, one day of the week. We recommend after dinner unless otherwise instructed. The dose should be taken on one day of the week, but you can divide the dose to morning and eveningif you tolerate it better that way. This medication should be held at times of infections, until the infection is cleared. *Please continue to AVOID ALCOHOL Methotrexate risks as reviewed prevoiously: Stomatitis(oral sores), hair loss, nausea/vomiting, rash, increased risk of infection, risk of liver damage/cirrhosis, cytopenias(low blood counts), pneumonitis, reported associated risk with lymphoma. Additional information on methotrexate available at: The [place] [facility] website : https://www.rheumatology.org/I-Am-A/Patient-Caregiver/Treatments /Whnfjoejlfdu-Enacorbcfb-Convlby and The [facility] website : https://my.[facility].org/health/drugs/05410-eglobsukgvrv - Please take your vitamin D with [...] late Spring can provide natural vitamin D tothe uncovered skin (arms, legs) - Your calcium [...] to break a tooth with dry raw almonds,or other hard nuts or seeds. If your lab work shows insufficient calcium or you are unable to consume sufficient foods rich in calcium, then a calcium supplement is recommended, such as calcium citrate. - You can track your nutrition and calcium intake on www.Foodini This provides macro and micronutrient intake and requirements. - You can track your calcium intake on Foodini or any other calcium tracker of your [...] density is to exercise on a regular basisand especially weight bearing and strength training exercises [...] youtube and copy and paste this link: https://youtu.be/[email or web address] This is done by a Physical Medicine and Rehab doctor who is a american indian studies professor in [employer]. She completed a PhD at the [employer]. I hope you find it helpful. Please take precautions and start gradual when starting a new exercise program. - I recommend reviewing the exercises from the LIFTMOR study. If you are interested in considering these strength training exercises you will need to work with a Range Examiner or Physical Therapist, as they need to be supervised for safety and to ensure the exercises are performed correctly to av oid injury. This is the reference of the article: For Men: -Jimmie AT, Twin GALAN, Chetan RENNER, Shankar WICK. The LIFTMOR-M (Lifting Intervention For Training Muscle and Osteoporosis Rehabilitation for Men) trial: protocol for a semirandomised controlled trial of supervised targeted exercise to reduce risk of osteoporotic fracture in older men with low bone mass. BMJ Open. 2016Apr 27;7(6):r151177. doi: 10.1136/nkbekkw-9031-055508. PMID: 36846656; PMCID: [id number]. -Samuel AT, Twin GALAN, Selvin Watters, Chetan RENNER, Roas Maria MONTANO, Shankar BR. A Comparison of Bone-Targeted Exercise Strategies to Reduce Fracture Risk in Middle-Aged and Older Men with Osteopenia and Osteoporosis:LIFTMOR-M Semi-Randomized Controlled Trial. J Bone Tula Res. 2019;35(8):8097-1629. doi: 10.1002/jbmr.4008. Epub 2019Feb 12. PMID: 67955387. Information regarding Whole Body Vibration Plate: You can review this article. Ref: Aparicio RDJ, Aparicio RG, Aparicio LC, Arlene SD, S??- Ander LAU, Aníbal Villalobos. Effectiveness of whole-body vibration on bone mineral density in postmenopausal women: a systematic review and meta-analysis of randomized controlled trials. Osteoporos Int. 2022;34(1):29-52.doi: 10.1007/d83499-632-25513-q. Epub 2021Sep 09. PMID: 36785611. Their conclusion: ???only high frequency associated with low magnitude and high cumulative dose with low magnitude showed high-quality evidence. At this time, considering the high quality of evidence, it is possible to recommend WBV using high frequency (? 30 Hz), low magnitude (? 0.3 g), and high cumulative dose (? 7000 min) to improve lumbar spine aBMD in postmenopausal women.?? - Stress can lead to bone loss. [...] hazelnuts, legumes, soybeans and other beans) - Aurora (potatoes, avocados, almonds, peanuts) - Chromium (broccoli, grape juice, whole-grain products) - Phosphorous (beans, nuts, certain fish) - Potassium (see information below) Most of these are available in a healthy well balanced diet. Vitamin D can be available in mushrooms that are grown in the sun, but most effective way to get sufficient vitamin D is through sun shineand supplements. - Ensuring sufficient nutrition intake and [...] optimal bone health? Ther Adv Musculoskelet Dis. 2010;3(6):293-300. doi: 10.1177/2392668X82989695. PMID: 84670957; PMCID: BPU4710600. -SUDHEER Carrillo., NYLA Dodson., GHAZAL Flores. et al. Soy isoflavone intake inhibits bone resorption and stimulates bone formation in menopausal women: meta-analysis of randomized controlled trials. Eur J Clin Nutr 62, 155-161 (2007). https://doi.org/10.1038/sj.ejcn.8994499 -Clyde Rosa, Trisha Lara, Harry De Leon. et al. Isoflavone intervention and its impact on bone mineral density in postmenopausal women: a systematic review and meta-analysis of randomized controlled trials. Osteoporos Int (2022). https://doi.org/10.1007/s38257-149-02848-a -Jack Finch, Trisha Lara, Clyde Grant et al. Effects of isoflavone interventions on bone mineral density in postmenopausal women: a systematic review and meta-analysis of randomized controlled trials. Osteoporos Int 31, 6034-1321 (2020). https://doi.org/10.1007/m47626-630-37812-e - Benefits of consuming soy in whole foods are listed in this article at the [facility] website: https://www.pcr.org/good-nutrition/nutrition-information/dri-dwb-wjpjpu - Prunes have been reported to help with bone density and inflammation, and are also beneficial forthe gut microbiome and constipation. -The Prune Study article: Perrin, Sivakumar ALDANA, Jordy NI, Edouard H, Flor KJ, Trey C, Praveena MG, Nakvivi CH, Terry C. Prunes preserve hip bone mineral density in a 12-month randomized controlled trial in postmenopausal women: the Prune Study. Am J Clin Nutr. 2021 6;116(4):897-910. doi: 10.1093/ajcn/rqva996. PMID: 18201905. -Benefit to bone density and inflammation: Hebert WYMAN, Perrin, Glory HL, Sivakumar ALDANA, Trey CUBA. The Role of Prunes in Modulating Inflammatory Pathways to Improve Bone Health in Postmenopausal Women. Adv Nutr. 2021 2;13(5):1476- 1492. doi: 10.1093/advances/rkzp467. PMID: 32484635; PMCID: AIB4128149. - Information on Vitamin K2: more recently [...] in healthy foods, with the exception of Natto(a traditional [place] food made from fermented soybeans) has high amounts of vitamin K2 (MK7). Please avoid vitamin K1, as this can raise the risk of blood clots If you are on coumadin or warfarin you should not take vitamin K. Please discuss with your prescriber. Additional information on vitamin K is available at the NIH website: https://ods.od.nih.gov/factsheets/VitaminK-HealthProfessional/#h2 -Magnesium rich foods include: raw nuts and [...] of these foods, please consult with your Security Sergeant or Physician first. Review of Osteoporosis medications Medications that prevent bone loss and Osteoporosis fractures: -Bisphosphonates are a group of medications that are available as pills (oral) or injected/infused in the vein as intravenous (IV) -Oral bisphosphonates (such as Actonel/risedronate, Boniva/ibandronate, Fosamax/alendronate), theseare taken either once a week or once [...] lab work we ordered. You would need aniyah well hydrated to insure good kidney function. Please insure adequate hydration with water, about6 to 8 cups of water, the day [...] femur. You can read more at these [facility] web links: https://my.[facility].org/health/treatments/95930-qzhudtmvmsgurtl For Fosamax/alendronate: https://my.[facility].org/health/drugs/86114-usbhzvriyzf-nbhkdcx For Actonel/risedronate: https://my.[facility].org/health/drugs/38004-iomsjzyfkuf-wgnv-wihpuymWxg Reclast/zoledronic acid: https://my.[facility].org/health/drugs/02255-eanuhvnzwf-plrq-hpvvsu poa-ftxxcd-zsppfnk-osteoporosis -Subcutaneous Prolia: this is one injection every 6 months, given by the nurse in the office. This medication is given oil heaterman, indefinitely. Prolia should not be discontinued without proven back up therapy, due to incr risk of vert fractures after withdrawing Prolia. Recent research findings recommend that Prolia if started and continued past 1 to 2 yrs, may need to be indefinitely, for now, until new studies show effective transition therapy. Advised that Proliashould not be discontinued due to reported increased risk of bone loss and vertebral fractures after withdrawing Prolia. Multiple studies have looked into transition therapy. Recent study from [facility] Slim et al, 04/11/2020 (PMID: 84628433.The study is ongoing, clinicaltrials.gov; [id number]), reported one infusion of IV Reclast did [...] femur. You can read more at these [facility] web links: https://my.[facility].org/health/drugs/24636-tzjyidvxl-gpomphmke Medications that build bone density and prevent osteoporosis fractures: -Subcutaneous Forteo or Tymlos, once daily injections at home: these are for 2 yrs and then will need to transition to anti-resorptive therapy, such as a bisphosphonate or Prolia after that, based onguidelines. These medications are contraindication in certain conditions, such as hyperparathyroidism, hypercalcemia, Paget's disease of the bone, radiation therapy to the bones, etc... You can read more at these [facility] web links: For Forteo/teriparatide: https://Gemvara.[facility].org/health/drugs/92443-gmafmpxrizob-fmowjqakh For Tymlos/abaloparatide: https://LEAP[employer] Keys/health/drugs/47642-qbjfdizkdjihq-wnewdexuh Medication that both prevents bone loss and [...] initiated in patients who have had an DC orstroke in the preceding year or those considered high risk. We may need a clearance from a Client Portfolio Manager prior to proceeding with this medication in patients who have a cardiovascular disease history. This is only prescribed for 1 year and then needs to be followed by anti- resorptive therapy, according to recommendations. You can read more at these [facility] web links: For Evenity/romosozumab: https://Gemvara.[facility].org/health/drugs/90968-gcbohdoyosy-qtmbldesy Other less potent Osteoporosis medications, such as [...] available medications were provided: Link to the [place] [employer] website at: https://www.rheumatology.org/I-Am-A/Patient -Caregiver/Diseases-Conditions/Osteoporosis Link to the [facility] web link at: On Osteoporosis: https://my.[facility].org/health/diseases/4443-osteoporosis On Osteopenia: https://my.[facility].org/health/diseases/50305-ukkgdjcyst - Additional information on Bone Health and [...] Recent studies show extra supplements may increase yourrisk of kidney stones or cause high calcium levels in some people. You should discuss how much you should be taking with your doctor before starting them. Further Information is available from the following resources: www.nof.org (National Osteoporosis Foundation) http://www.osteo.org/osteolinks.asp [place] [facility]: 5-061-242-BONE [facility] Calcium Information Center: Non-Dairy, Plant based Milk, can contain in1 glass up to 450 mg of calcium (300 to 450 mg) Exampled include Oat Milk, Flax Milk, [place] Milk, Cashew Milk, Soy Milk, Peas Milk Examples of Food Sources of Calcium from [facility] Food Milligrams (mg) per serving Percent DV* Soymilk, calcium-fortified, 8 ounces 299 30 [place] juice, calcium-fortified, 6 ounces 261 26 Tofu, firm, made with calcium sulfate, ?? cup* 253 25 Tofu, soft, made with calcium sulfate, ?? cup* 138 14 Twsph-lu-gvs cereal, calcium-fortified, 1 cup 100-1,000 10-100 Turnip greens, fresh, boiled, ?? cup 99 10 Kale, raw, chopped, 1 cup 100 10 Kale, fresh, cooked, 1 cup 94 9 Danish cabbage, [employer] marin, raw, shredded, 1 cup 74 7 Bread, white, 1 slice 73 7 Tortilla, corn, tjajy-ov-dzaw/marshall, one 6?? diameter 46 5 Tortilla, flour, kwhtw-sb-bbdo/marshall, one 6?? diameter 32 3 Bread, whole-wheat, 1 slice 30 3 Broccoli, raw, ?? cup 21 2 * DV = Daily Value. DVs were developed by the U.S. Food and Drug Administration to help consumers compare the nutrient contents among products within the context of a total daily diet. The U.S. Department of Agriculture???s (USDA???s) Nutrient Database Web site lists the nutrient [...] You could acces this information online at: http://ods.od.nih.gov/factsheets/Calcium-HealthProfessional/ Vitamin D: Vitamin D3= cholecalciferol, available over the counter. Dose recommended 800 to 1000 international units daily with a meal; Certain patients require 7518-4862 international units daily and in patients deficient [...] bones. Studies show approximately 50% of [place] men and women are vitamin D deficient in the winter. Milder cases of vitamin D are usually asymptomatic so the only way to know you have a problem is to have a blood level checked. More severe cases can cause osteomalacia(a.k.a. rickets) which can result in bone pain, [...] sun due to skin condition. Often supplementation isneeded. Many multivitamins contain some vitamin D and [...] of falling. Additional Information is available from: [facility] Osteoporosis Information: https://my.[facility].org/departments/orthopaedics-r heumatology/depts/osteoporosis-metabolic The Bone Health and Osteoporosis Foundation (formerly the National Osteoporosis Foundation) : https://www.bonehealthandosteoporosis.org International Osteoporosis Foundation: https://www.osteoporosis.foundation http://ods.od.nih.gov/factsheets/vitamind.asp [facility]: 6-816-438-BONE The Calcium Information [place]: I recommend following a healthy lifestyle. You [...] of common chronic diseases, healthy weight management, memoryand brain healthy, bone health. I have listed [...] and maintaining healthy weight. with healthy BMI zfsuqsb81 to 25, and ideally around 22-23 when possible. For Osteoporosis and low bone density, it is important to keep a BMI at 22 or above and ensure good strength training exercise routine. - You can track your nutrition and calcium intake on www.Oneloudr Productionsometer.Casper This provides macro and micronutrient intake and [...] that features the Whole Plant Based diet, [place] over knives (see video online and visit website). Another movie that was recently released is: Eating You Alive (you can find it at GeoOptics) and The Game Changers movie Dr. Fauzia Ansari is a [facility] physician who has done research and published books, is an expert in Whole Plant based diet for prevention and reversal of heart disease. His website is Viadeo. His research highlights the benefits of the Whole food plant based diet in reversingand preventing heart disease. Mrs. Cookie Ansari (his ) has a cookbook with many recipes on whole plant based food: The Prevent and Reverse Heart Disease cookbook. Cookie and Yamile Ansari have a cooking show on YouTube called: Plant-Based with Yamile Ansari and Cookie Ansari. You can also consider reading his son, Eze Ansari's book: The Engine 2 cookbook Eze is a retired laborer construction or leak gang who has helped many people get healthier by following the whole food plantbased diet. Dr. Rock Velazco, has a website and free claudia to help get started on a whole plant based diet, at www.about.me.org and you can log on for free for his 21-Day Kickstart with meals and recipes to follow for21 days. There is also a free claudia for that. He has multiple free videos and YouTube, for example: ht tps://Solar Components.RSVP Law/klbHbzgN2d0 , https://Yammer/MaEEFikzg1h He has written multiple books, including Power Food for the Brain, The Cheese Trap, Dr. Rock Velazco's Program for Reversing Diabetes, Your Body in Balance You can also watch YouTube channel : The Doc & Forest Fire Fighters Dispatcher Dr. Atnhony Carlson has shown the benefit of a starch based whole food plant based diet to his Rheumatoid Arthritis patients, as well as patient with diabetes II, hypertension, obesity, multiple sclerosis, heart disease, acne, and other, his website: www.debra.Casper Dr. Yayo Allred is a renowned medical lab scientist, who has studied and researched the benefits of the Whole plant based diet. He has also researched the adverse effects of animal proteins on health. He presents many of his research findings in his book The [place] study. Dr. Gerber Becker has completed many research trials proving the reversal of diseases, such as heart disease and early prostate cancer, with healthy lifestyle and the Whole Plant based diet. Dr. Gerber Becker website is: www.carmenKamego.Casper His new book: Undo It, has evidence [...] videos and YouTube, for example https://youtu.be/aSgNkhgVtks and https://youBallooning Nest Eggsu.be/lXXXygDRyBU. He has written multiple books including: How Not To and How Not To Diet He is now working on his next book: How Not To Age Dr. Danitza Dash (from the [facility]), has articles on the following website: [employer] For additional ideas on recipes, you could find additional information on practical to follow recipes by reading or watching online and YouTube such as: Forest Fire Fighters Dispatcher AJ, Cooking With Plants, The Vegan Corner(recipes from an [place] Forest Fire Fighters Dispatcher), The Whole Foods Plant Based Cooking Show and visiting the provided websites for additional information on the whole plant based benefit and cooking recipes. You can also consider watching the vlogs of some of the plant based Athletes such as Fausto Ewing Derek on Top Hand Rodeo Tour. You can find very good recipes for [...] Mum - PB with J - Dr. Ignacio Degroot Lifestyle Medicine (is a Client Portfolio Manager and Lifestyle Medicine Physician) -Sometimes it helps to start with a simple diet of potatoes, that Dr. Carlson calls Yarelis Butler. You can learn more about that in his website: www.[employer].[place] This is the website for Yarelis Butler pdf : https://www.[employer].[place]/wp-content/uploads/Mar bs-Nhck_Vcpgavr_Jqwmf_Vectlbd-4.pdf You can also read more on Dr. Aldo's website - When you goal is to lose weight, it is important to listen to your hunger cues. Don't eat until you are stuffed. As soon as you feel you are no longer hungry, stop eating. There is a Kosovan saying that says Tammie Vega, meaning eat until you are 80% full. I say avoideating past 80% of your stomach fullness. This originated from the [facility], which is one ofthe sites reported in the Video[employer] book, one of the highest cities in the world for having the most centenarians. Remember your stomach needs space and capacity for proper digestion of your food. Like a food storeroom clerk or a blender / cook, they have a limit for proper function, and should not be filled to the top. You can read more about that from the [facility] article Don???t Eat Until You???re Full ? Instead, Mind Your Tammie Prave[place] , at https://health.[facility].org/nwhm-xzy-dasel-youre-fu iq-stimuzc-pqyp-rhfg-yaxy-gbagi-salvador-point/ Most plants contain proteins and all essential [...] peas, quinoa, seeds (hemp seeds, david, flax..), nuts(almonds, pistachos), buckwheat, oats, green leafy veggies, broccoli, [...] also important to ensure they are 3rd democrat tested to avoid contaminants. You can track your macros on a nutrition tracker such as cronometer or LeanDatapal and others. Dr. Maryan Holguin (a psychiatrist [...] you will need to consult with a telephonic nurse to have further evaluation to exclude Celiac [...] - Gentle Yoga Anyone Can Do Anywhere www.[email or web address].[email or web address]/yoga Also on youtube: yoga with Karlie For women, especially after menopause, strength training is important. You can read more on that from Clare Morley, PhD at her website [email or web address].[email or web address] and YouTube videos. If you are a beginner, it is best to start with a physical therapist or personal protection specialist. There are also several Aps that offer virtual personal training 3- Good Sleep (poor sleep impacts everything, recommended sleep is 7 to 8 hrs. a night). Certain people may need more sleep, depending on their age and other conditions. Meditation and relaxation techniques have shown to help with improving sleep. Try to be consistent with your sleep. You can find more at the [facility] Website on : https://my.[facility].org/departments/wellness/store/go-well#sleep-tab 4- Stress management, be happy, laugh often [...] only have 10 minutes a day. You canstart your day with a 10 minute meditation. Try to Meditation once daily to twice daily 10 to 15 minutes each. If you have more time you can golonger. If you are new to meditation, it is good to start with a guided meditation. There are many Apps that help with guided Meditation and several are free or have free options suchas: Calm Insight Timer Meditation Stress Free Now ([facility]). You can find more resources at the [facility] website at : https://.[facility].org/departments/wellness/store/go-well#yfnrta-icvz-fj b There are many free youtube videos on guided meditation as well For Breathing techniques: You can watch John Carlisle and learn the breathing technique and its benefits by watching the following YouTube: https://youBallooning Nest Eggsu.be/3Py0R-SLh31?[email or web address]. Learning about your awareness/spiritual being, is very [...] work with a psychotherapist or behavioral health online health and fitness coach. When having a psychiatric condition, it [...] based diet, it is recommended to take VtholiqJ95, sublingual, dissolve under the tongue, take once daily. Vitamin B12 is available over the counter, dose could be 2500 mcg, and can be taken once a week, and if your blood levels are low, you mayneed to take it once daily or a higher dose. Raw: Garlic, Cilantro, [place] nuts, Pumpkin seeds, [place] seeds and Flax seed powder have been reported to help with certain metal detoxification such as mercury. Sugarloaf-3 plant based rich foods are good anti-inflammatory [...] the Whole Plant Based Diet, by watching [place] [employer] movie and then review website. There are many other resources and educational information on the Whole plant based diet on the Internet and documentaries. There are other resources for wellness that you can also benefit from, such as the [facility] website, [facility]org and includes Plant based and Mediterranean diet, yoga and meditation. Please avoid all dairy products. You could use non-dairy milk such as Flax milk, Cashew milk, [place] milk, Rice milk, Oat milk or Hemp [...] below, just add the ingredients to your blender / cook and blend: - Probably the healthiest smoothie is one that contains mostly green leafy vegetables (especially containing kale), some berries, flax seed and water. This might not t rail turner to be sweet. You can addone or two pitted dates or a frozen banana for natural sweetness. Examples of healthy green smoothies, pack your blender / cook (at least half way to 3/4) with a mix of green leafy veggies, then top your blender / cook with fruits (such as banana or frozen raul or pineapple, peaches, apricots, apples, grapes), a tablespoon of flax or david seeds, then add water or unsweetened coconut water and blend until smooth. You can also add turmeric in this recipe. Do not only use spinach as they tend to be high in oxalates and can be risk for kidney stones. The same with beninese chards and beet leaves. If you don't [...] boost your nitric oxide. Beets are healthy forthe heart, and they can bring blood pressure [...] of your health and wellbeing. At the [facility], we work as a team for your care, along with Nurse Practitioners, PhysicianAssistants, Nurses and Medical Assistants. It is a privilege and honor to serve you. Thank you for choosing The [facility] for your healthcare. Sincerely, Darrian Dubon MD documented in this encounter Progress Notes * Darrian Dubon MD - 06/06/2025 8:30 AM EDT Images from the original note were not included. FOLLOW UP VISIT Patient's Name: [facility] [address] PCP: [place] [address] [place] [id number] Consult Requested by: Jose L Wang MD [address] [facility] [id number] Other physicians: [place] Techn[employer] prev. Nel Lebron MD (his prev. telephonic nurse left- Ronald Brown MD) ; Now following with Dr. Luis Antonio García Accompanied by: self Interim history: is here for f/u RA and OP Recording using [employer] software for draft documentation of the visit was discussed with the patient/authorized claims representative; all questions welcomed and answered. Patient/authorized claims representative agreed to proceed Reports doing fine today, but this would be his last apt. 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 He also relayed that he called with his flare and spoke to someone in our office and was not provided advise. I was not informed of that. I looked in his chart, there were no documented calls and patient was unable to verify the date. I explained to Mr. Toscano that there were no telephone encounters documented and I was not informed of his call with concerns for joint pains or flare. I apologized for any inconvenience and relayed that I understand hisfrustration. He has also been seeking local qa automation engineer closer to home for him. This is a long drive for him to come here. Regarding the reported RA flare: I asked him to provide me with additional information, he was unable to provide exact dates and details, but reported that his RA flared, at the time everything hurtso bad , middle of my back the spine , hands were stiff, shoulders were worse with pain and stiffness Am stiffness duration all day Staes left knee and left foot MTP were swollen. His is s/p b/l TKR, left knee is artificial knee and he has seen his orthopedic surgeon, no loosening and no reported infection or PJI. He was taking Aleve and his PCP told him he should not be taking the Aleve and assisted him with methotrexate. Started on methotrexate 4tbs/wk about 8 wks ago Currently since on methotrexate, feeling better States morning stiffness resolves within 2 hrs, still taking meloxicam per PCP Reports tolerating methotrexate well He feels it is starting to work States after 5 wks on the methotrexate felt oh my God I can move again , states does not feel needs to go any further. He raises a great point that he is feeling well now, but he is still requiring meloxicam. He is aware that to be able to avoid taking meloxicam, dose of methotrexate would need to be increased. Discussed that either methotrexate dose will need to be increased or he may need to resume his anti-TNF medication (either Enbrel or Humira). He is still undergoing evaluation by his telephonic nurse for his IBD disease activity. He has been on Entyvio. States he has gastrointestinal evaluation by his telephonic nurse and states - Undergoing capsule endoscopy tomorrow to evaluate small intestine for potential tumors or bleeding. - Recent colonoscopy showed small benign tumors. States told his tumors were benign But still needs the camera States because he is bleeding and requiring His PCP and [place] Technician are addressing his anemia and further evaluating He had iron infusion 05/26/2025 States he is on potassium and iron infusion by his Primary care physician States his Primary care physician started him on 4 tbs/wk and is comfortable with that He continues on the sulfasalazine, and states his telephonic nurse prescribes it, as well as the Entyvio. No interim fractures Continues on vitamin D I reviewed results with patient 02/14/2025 Mr. Toscano is a very nice 59 [...] BRBPR and denies melena. He follows with [place] Technician for his UC. States has scopes this summer by his telephonic nurse. He is following with Orthopedics for his osteoarthroses and non-inflammatory joint pains. He has a chronic rotator cuff tear and extensive bilateral glenohumeral degenerative disease. His s/p b/l TKRand rt THR. Hissed rate was elevated at 79 04/2024 at time of his pneumonia. He continues on sulfasalazine and Entyvio by his telephonic nurse. He does not describe RA related symptoms No jt pains or swelling outside of the LLE from TKR Denies rheum nodules No stiffness He is on sulfasalazine per telephonic nurse for his UC and this has been controlling his RA He is pleased with his treatment regimen He also states that his IBD is well controlled, states told is in remission, on Entyvio Doing exercise and working with personal protection specialist at the gym and will be going [...] in IBD and is following with local telephonic nurse for that. Has been on Humira since Sep 2020 (started with 80 mg loading dose and since has been on 40 mg every 2 wks) He was pleased with Enbrel response to his RA and later was switched to Humira, reports has similarbenefit and is pleased with response. His telephonic nurse switched him to Humira for optimal mgt of IBD and he feels this has helped his IBD better. Reports still gets 8 BM's a day, does not have BM at night, does not have to wake up from sleep. Has been following with his telephonic nurse for his UC Had colonoscopy 11/22/2021 with reported marked improvement in asc/transv/desc colon and severe active in rectum, histopath with active colitis with erosions. States Dr. Lebron has started him on rectalenemas. Recent colonoscopy with reported active colitis. He tells me that he continues to have multiple BM's; His telephonic nurse prescribed pred. course, completed recently. No jt [...] us, he is on Humira per his [place] Technician He is off Enbrel, was switched to Humira by his telephonic nurse. (previously was on Enbrel 25 mg twice a wk and has been in remission since on Enbrel and very pleased with his treatment regimen) He is on Humira 40 mg every 2 wks by his [place] Technician He is on sulfasalazine, Humira and mesalamine enemas per his telephonic nurse I have reviewed benefits of a whole food plant based diet He consumes dairy, cheese, sausage, hamburger. I have advised him on avoiding meats and dairy and reviewed reports and patient experience with flare of IBD and RA, as well as gastrointestinal dysbiosis. I advised him on a whole foods plant based diet. 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 He does not have a dental insurance. States he is looking into dental insurance. I reviewed importance of f/u with dentist and explained also that this is delaying his Osteoporosistherapy. He tells me that he has not [...] Vitamin D 25 Hydroxy (ng/mL) Date Value 05/23/2025 60.0 02/20/2021 44.2 ] XR Ankle: IMPRESSION: Arthritic changes demonstrating interval progression in this patient with known rheumatoid arthritis. Multimedia Teacher: CODY Transcribe Date/Time: Feb 20 2021 9:52A [...] site where has fallen arch. 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 Feels gets stiff when not moving as much. Denies any injury or trauma. Denies any pain to me today States his telephonic nurse has prescribed prednisone course due to IBD flare States after scope was told is flared. He is on sulfasalazine and budesonide and his telephonic nurse and since has switched him from Enbrel [...] records He is following with Urologist, Dr. Wang for gross hematuria, seen 02/04/2021 Per note [...] Alk phos isoenz: liver fraction; followed by telephonic nurse He follows with his telephonic nurse for hi elev alk phos and AST and for bld with stools, Dr Brown: and states he started him on iron supplement States Dr. Brown prescribed metronidazole, for reported diarrhea. States felt it made a difference. States he gave him enemas and told that is for his ulcerative colitis and prescr. sulfasalazine. In 2019, has also followed with his telephonic nurse for blood with stools, and had flex sig and told he was inflamed from his Ulcerative colitis. [facility] had colonosc and EGD in 2018 and was told were good. Told his bld in stools from his UC and patient states notices also mucus when wipes. [facility] had increased his sulfasalazine dose. [facility] also notices that dairy and cheese caused really bad inflammation from these and has avoided since. [facility] also avoids coffee and consumes green [...] systems reviewed and are negative DXA Model: Folloyu W [id number] SITE SCANNED: Lumbar spine and left hip [...] were all normal. He follows with his telephonic nurse for his ulcerative colitis and is on sulfasalazine. He was told by his telephonic nurse to avoid sun exposure due to this med, had skin itching last summer. He had evaluation for elevated AST and alk phos. Alk phos has improved and AST has been borderline elevated. I have advised him to f/u with his telephonic nurse for his elevated alk phos (liver fraction) States his telephonic nurse did an US of his liver twice and was told was normal. He denies any alcohol consumption or acetaminophens. His isoenzyme indicated predom. of liver origin. The patient reports that his telephonic nurse completed evaluation and told his liver is fine. His liver US was unremarkable . His anemia has resolved since his UC has been controlled. States saw his telephonic nurse, Dr. Lebron, recently and states told him [...] and denies hematuria or dysuria. DXA Model: Folloyu W [id number] SITE SCANNED: Lumbar spine and left hip [...] states not bad . has seen a qa automation engineer in the past, in [place], Dr. Whitfield. States used to be on Remicade with him, was expensive. Patient states went on bankruptcy and had to leave, and since then his Primary care physician, Dr. Wang, has been managing his Rheumatoid Arthritis and [...] to cost and expense. was able to continueon Enbrel and has been on it since ~2000. Denies any adverse effect from the Enbrel. He reports that the Enbrel has been working well for his Rheumatoid Arthritis. Reports Enbrel 25 mg sq twice a week. Patient would like to continue on his Enbrel and this has been controlling his Rheumatoid Arthritiswell over the yrs. He reports his insurance has been inquiring on indication for Enbrel and its response before approving. He would like assistance with prescribing it and prior auth. Infections: Denies serious infections, reports about once a year would have sinus infection and would prescribed antibiotics Denies TB or fungal infections Ulcerative Colitis history: Managed by Dr. Nel Lebron Reports diagnosed March 2015, reports bld with stools and diarrhea. States yrs ago had abd cramps that resolve with BM, but does not recall these symptoms in the past. States had EGD and colonoscopy and was told had ulcer of lower gastrointestinal tract and diagnosedwith UC. Patient unaware if biopsies were done. Treatment: ant-acid in am, omeprazole, states they recommended also mesalamine enema and sulfasalazine 500mg q 6hrs. Reports benefit and his telephonic nurse took him off the iron supplement as his iron was good. States has advised him to avoid all nsaids and recently had discontinued his Celebrex. [facility] has another apt and scheduled for scope next wk Tues. RHEUM. ROS: Joint pain: as above; none currently Joint swelling: as above; none currently Am stiffness: as above; none currently Low back pain: no Dactylitis: no H/o precedent/frequent infection(s): as above Enthesopathy/[place]'s/heel/plantar tenderness: no Skin thickening, psoriasis, photosensitivity, purpura: no Nail changes: no Alpecia, patchy: no; has MPB Eye inflammation: no SICCA: no Oral/nasal/genital ulcers: no GI problems-diarrhea/bleeding/IBD/Gluten intolerence/Dysphagia: as above Raynaud's phenomenon/digital ulcers: no Organ inv-Serositis: no Lung disease/ILD: no Myopathy/proximal muscle weakness: no Abnormal Urine or urethritis: no Renal disease: no POWER SYSTEM OPERATOR/PNS disease: no and denies MS HEME-Cytopenias/LAD/Clots: iron [...] Immunization History Administered Date(s) Administered COVID-19 vaccine ([employer]) 03/18/2021 hepatitis A-hepatitis B (HepA-HepB) vaccine ([facility]) [...] Marital Status: Single denies children 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 Wang Smoking: quit 2012 Alcohol as above IVDU: [...] Abs Lymph 1.00 - 4.00 k/uL 3.02 [place]% 9.7 Abs [place] 0.00 - 0.86 k/uL 0.79 Eosin% 0.0 [...] Negative Negative Ketones, Urine Negative Negative Specific [place], Ur 1.005 - 1.030 1.008 Hemoglobin/Blood,Ur Negative 3+ (A) pH, Urine 4.5 - 8.0 6.0 Protein, Urine Negative mg/dL Negative Urobilinogen Normal Normal Nitrites Negative Negative Leukest Negative Negative Comments SEE COMMENT Urine Adan Comment SEE COMMENT WBC, Urine 0 - 5 /HPF 0-5 RBC, Urine 0 - 3 /HPF >25 (A) Sm Antibody <1.0 AI <0.2 FOOD ADVISER Antibody <1.0 AI 1.2 (H) SSA Antibody <1.0 AI <0.2 SSB Antibody <1.0 AI <0.2 Centromere Ab <1.0 AI <0.2 Scleroderma Ab, IgG <1.0 AI <0.2 Milagro 1 Antibody <1.0 AI <0.2 Ribosomal FOOD ADVISER <1.0 AI <0.2 Chromatin Antibody <1.0 AI [...] and DJD. Latest Ref Rng & Units 08/22/2020 12/01/2023 01/12/2024 05/23/2025 CBC WBC 3.70 - 11.00 k/uL 6.17 10.84 8.05 7.96 Hemoglobin 13.0 - 17.0 g/dL 12.8 11.6 13.9 11.6 Hematocrit 39.0 - 51.0 % 39.2 36.8 43.6 35.9 Platelet Count 150 - 400 k/uL 316 497 339 337 Abs Neut (ANC) 1.45 - 7.50 k/uL 4.10 7.83 5.55 5.50 Abs Lymph 1.00 - 4.00 k/uL 1.38 2.11 1.84 1.69 Latest Ref Rng & Units 08/22/2020 12/01/2023 01/12/2024 05/23/2025 CMP Sodium 136 - 144 mmol/L 142 143 140 Potassium 3.7 - 5.1 mmol/L 4.0 4.1 4.2 Chloride 98 - 107 mmol/L 105 106 105 CO2 22 - 30 mmol/L 26 25 23 Glucose 74 - 99 mg/dL 81 101 135 BUN 9 - 24 mg/dL 15 19 17 Creatinine 0.73 - 1.22 mg/dL 0.79 0.92 0.73 Calcium 8.5 - 10.2 mg/dL 9.4 10.2 9.5 AST 14 - 40 U/L 31 31 ALT 10 - 54 U/L 18 22 Alkaline Phosphatase 38 - 113 U/L 135 171 211 Latest Ref Rng & Units 01/26/2020 08/22/2020 Uric Acid Uric Acid 4.0 - 8.1 mg/dL 6.3 4.4 Latest Ref Rng & Units 12/01/2023 01/12/2024 ESR, WSR WSR 0 - 15 mm/hr 114 34 Latest Ref Rng & Units 12/01/2023 01/12/2024 05/23/2025 CRP CRP <0.9 mg/dL 3.9 0.4 3.5 Latest Ref Rng & Units 08/29/2015 RF [...] with Mycobacterium tuberculosis. No evidence of current orprevious infection with Mycobacterium tuberculosis. Infection with M. [...] <12 Sm Antibody <1.0 AI <0.2 Ribosomal FOOD ADVISER <1.0 AI <0.2 Chromatin Antibody <1.0 AI <0.2 SSA Antibody <1.0 AI <0.2 SSB Antibody <1.0 AI <0.2 FOOD ADVISER Antibody <1.0 AI 1.2 Scleroderma Ab, IgG [...] FINDINGS CONSISTENT WITH CHRONIC SEVERE RHEUMATOID ARTHRITIS. Multimedia Teacher: [facility] Transcribe Date/Time: Aug 29 2015 12:56P ... Last XR Ankle - Impression Only XR ANKLE GENERAL 3V AP/LAT/OBL LT Exam End: 02/20/2021 8:42 AM (Final result) Impression: IMPRESSION: Arthritic changes demonstrating interval progression in this patient with known rheumatoid arthritis. Multimedia Teacher: KETTYB Transcribe Date/Time: Feb 20 2021 9:52A Dictated by : JENNIFER BOSCH MD... Last XR Shoulder - Impression Only No resulted procedures found. C-spine Exam Date: 01/23/2025 21:06 Report Date: 01/23/2025 21:09 At the request of: JOSE L WANG MD Procedure: XR cervical spine 2-3V 3 [...] Ta Finn M.D.01/23/2025 9:09 PM Dictation Location: [facility] Electronically authenticated by: [id number] Y Date: 01/23/2025 21:09 Dictated By: Ta Finn D.O. EXAMINATION: MRI C-SPINE WITHOUT IV CONTRAST CLINICAL [...] stenosis. Impression dictated by: Anil Tillman Jr., D.O.02/03/2025 2:34 PM XR Shoulders: Exam Date: 01/23/2025 21:02 Report Date: 01/24/2025 15:15 At the request of: JOSE L WANG MD Procedure: XR shoulder MELISSA min 2V [...] dictated by: Ta Finn M.D.01/24/2025 3:15 PM RELEVANT OSTEOPOROSIS LABS: Calcium Date Value Ref Range Status 08/22/2020 9.4 8.5 - 10.2 mg/dL Final 01/17/2020 9.3 8.5 - 10.2 mg/dL Final Calcium, Total Date Value Ref Range Status 05/23/2025 9.5 8.5 - 10.2 mg/dL Final 12/01/2023 10.2 8.5 - 10.2 mg/dL Final Phosphorus Date Value Ref Range Status 05/23/2025 2.3 (L) 2.7 - 4.8 mg/dL Final 08/22/2020 2.8 2.7 - 4.8 mg/dL Final 01/17/2020 2.5 (L) 2.7 - 4.8 mg/dL Final 07/12/2019 2.5 (L) 2.7 - 4.8 mg/dL Final Alkaline [...] developed and its performance characteristics determined by [facility]'s [facility] Path[facility] Medicine [place] ([facility]). It has not been cleared or approved by the FDA. -[facility] is regulated under CLIA as qualified [...] 25 Hydroxy Date Value Ref Range Status 05/23/2025 60.0 31.0 - 80.0 ng/mL Final 12/01/2023 63.0 31.0 - 80.0 ng/mL Final [...] immunoassay. Creatinine Date Value Ref Range Status 05/23/2025 0.73 0.73 - 1.22 mg/dL Final 12/01/2023 0.92 0.73 - 1.22 mg/dL Final 08/22/2020 0.79 0.73 - 1.22 mg/dL Final 01/17/2020 0.83 0.73 - 1.22 mg/dL Final Creat Clearance [...] Final Albumin Date Value Ref Range Status 05/23/2025 4.0 3.9 - 4.9 g/dL Final 12/01/2023 3.9 3.9 - 4.9 g/dL Final 08/22/2020 4.4 3.9 - 4.9 g/dL Final 01/17/2020 4.0 3.9 - 4.9 g/dL Final Alpha 1 [...] 147 53 - 334 mg/dL Final MPA [place], Serum Date Value Ref Range Status 08/19/2018 1,020 534 - 1,267 mg/dL Final MPA [place], Serum Date Value Ref Range Status 08/19/2018 551 253 - 653 mg/dL Final MPA [place]/Lambda Ratio Date Value Ref Range Status 08/19/2018 [...] Last Bone Density DXA-AXIAL SKELETON Exam End: 06/06/2025 8:13 AM (In process) I personally reviewed his DXA results from 06/06/2025 and we provided copy of results Full report will follow Patient has had multiple testing at outside facilities, would not be included in the above section ALLERGIES No Known Allergies Current Outpatient Medications Medication Sig ferrous sulfate 325 mg (65 mg iron) tablet 1 tablet Orally bid for 30 days potassium chloride SR (MICRO-K) 10 mEq CR capsule 1 tablet with food Orally Twice Daily for 30 days tiZANidine (ZANAFLEX) 4 mg tablet Take 8 mg by mouth daily at bedtime. methotrexate 2.5 mg tablet TAKE 4 TABLETS BY MOUTH WEEKLY ENTYVIO 300 mg injection sulfaSALAzine EC (AZULFIDINE EN) 500 mg EC tablet TAKE 2 TABLETS BY MOUTH 4 TIMES A DAY folic acid 1 mg tablet Take 1 [...] medications for this visit. PHYSICAL EXAM BP 124/62 Pulse 66 Wt 75.3 kg (166 lb) BMI 26.81 kg/m?? afebrile, VSS General Appearance: WD/WN, NAD. Appropriate [...] pulses b/l UE ; No clubbing,discoloration,sclerodactyly, periungual erythema,digital ulcers, nail pitting; mild LE pitting edema [...] multiple sites with positive rheumatoid factor (HCC) Z79.631 On methotrexate therapy Z79.899 On sulfasalazine therapy K51.00 Ulcerative pancolitis (HCC) M85.89 Osteopenia of multiple sites Z87.39 History of osteoporosis Z92.29 History of bisphosphonate therapy Z71.2 Encounter [...] in patient's severe chronic Rheumatoid Arthritis. His telephonic nurse has switched him to Humira as he feels patient would have better response tohis IBD and is prescribing sulfasalazine and mesalamine (endema). -Vitamin D deficiency- corrected He is on supplements, requires monitoring due to risk of recurrent deficiencies. He reports taking 5000 international units daily with a meal, maintenance Will update labs June 06, 2025 Visit -Re RA At today's visit, the patient's Rheumatoid Arthritis does not appear to be active. He describes recent RA flare that has significantly improved since the addition of methotrexate by his PCP. His RA flare coincides with his elevated CRP. I do not have his PCP records and results andif perhaps his CRP was higher prior to starting on methotrexate. He is tolerating methotrexate well, continues on sulfasalazine by his telephonic nurse He is also on Entyvio by his telephonic nurse. -Osteoporosis DXA August 19, 2018 Lowest T-score [...] able to completed in 2019 or since andis looking into dental insurance. He will let us know when his dental work is completed. He is aware that dental work needs to be completed before Reclast and was advised to f/u with his dentist and relayed that he plans to. I reviewed importance of f/u with dentist and explained also that this is delaying his Osteoporosistherapy. Patient will contact me after he has completed his dental work. -DXA September 23, 2022, lowest T-score -2.5 (left fem neck) Stable BMD, no bone loss compared to 2019. He remains at risk for fracture and further bone loss, colton with he has had active IBD and had to receive intermittent steroid therapy from his telephonic nurse. Pharmacologic therapy is still indicated and recommended, [...] Oncology for urine M protein (checked twice) -DXA June 06, 2025, lowest T-score -2.1 Her has reversed from Osteoporosis to Osteopenia He has had significant improvement in BMD at all sites (up to 9.3% at the hip and 7.2% at the spinesince 2021 and by up to 14.5% at the spine since 2018). Gained bone density at the spine and hips. TBS spine: partially degraded microarchitecture FRAX would not be reported as patient received bisphosphonate in 2023 (Frax is was not on bisphosphonate therapy, would be 6.8% for MOF and 1.8% for hip fracture risk, with RA included in the risk factors. With alf systemic steroids FRAX scores would be higher). Fx risk based on TBS and BMD: Medium Recheck DXA markedly improved, patient pleased with his progress. He was commended on his remarkable progress. He has received one infusion of Reclast and has been minimizing systemic steroid use His CTX (C Telopeptide Beta) was 374, not elevated and below the mean, indicating no bone loss signal at this time. Recommend continued monitoring overtime RECOMMENDATION/PLAN: Recent results reviewed with patient Also receives labs per Primary care physician/ [place] Technician Reviewed his labs Advised on phosph. rich diet -The patient's telephonic nurse follows him for his UC, anemia and liver tests. He is on Entyvio and sulfasalazine per his [place] Technician RA DMARD therapy: patient would like to defer his RA management to his Primary care physician He is on methotrexate 10 mg/wk (oral, 4tbs) per his Primary care physician The patient does not feel needs to increase his methotrexate dose or resume anti-TNF therapy at this time. He feels markedly improved. He is aware that to be able to avoid taking meloxicam, dose of methotrexate would need to be increased. Discussed that if he is relying on meloxicam for his RA disease control, then DMARDs needs to be adjusted to avoid alf use of nsaids and their risk factors and adverse effect. With escalation of treatment for his RA, options include either methotrexate dose increase if labs allow and well tolerated, or he may need to resume his anti-TNF medication (either Enbrel or Humira). With being on methotrexate, folate supplement is recommended. Reports taking folate He is on sulfasalazine per his telephonic nurse and Entyvio for his IBD (He was prev. on Enbrel 25 mg sq twice a week, or may switch to Humira if his telephonic nurse switched him to Humira TNF inhibitor therapy, is indicated and medically necessary to keep patient's Rheumatoid Arthritis under control and in remission , maintain quality of life, and to prevent further joint damage The patient reported previously that when he was unable to receive his Enbrel in the past (prior toseeing us) he had multiple severe joint damage and had to have surgery.) Patient on sulfasalazine for his IBD per his telephonic nurse RE OP med: Received Reclast infusion, 5 mg IV on 05/09/2024 well tolerated Further infusions will be determined based on bone loss, fracture or if on systemic steroids. Recommend monitoring CTX (C Telopeptide Beta) in 2025 Recommend continued monitoring of vitamin D 25-OH levels Recheck DXA in 2 yrs, 05/2027, sooner if on steroids. As previously discussed, his OP med [...] wished to proceed. Previous orders -CONSULT TO CREATIVE RECRUITER -CONSULT TO PODIATRY Provided referral to OT for assistive devices, exercises to preserve left function Referral to manager mass for foot/ankle deformities and callus care, inserts/braces/orthotics, [...] patient on healthy lifestyle, healthy food and anti- inflammatory diet (with emphasis on whole plant based [...] implementation and preventive health and wellness recommendations. Reminders, recommendations and additional resources and educational information provided to patientin their After Visit Summary. I spent a total of 33 minutes on the date of the service which included preparing to see the patient, [id number] patient care, completing clinical documentation, obtaining and/or reviewing separately obtained history, performing a medically appropriate examination, counseling and educating the pat ient/family/caregiver, ordering medications, tests, or procedures, communicating with other HCPs (not separately reported), independently interpreting results (not separately reported), and communicating results to the patient/family/caregiver. F/U Apt: Patient relayed this would be his last apt today, as discussed above. He has a prescheduled apt for Oct 2025. I advised him to keep it for now, as I am booking out far, especially with my practice now focused on metabolic bone disease and osteoporosis. If he is able to find another qa automation engineer closer to home or or if Dr. Wang is following and managing his RA, and they are both comfortable with that, he can cancel his apt with me. I explained to patient that I respect his wishes and understand his concerns and relayed that it has been an honor and a privilege to care for you. I remain available if Dr. Wang has questions or needs to discuss his case further in the future. We also have multiple rheumatologists in this practice here at [place] who are also able to follow him, even if my schedule is fully booked. Portions of this note have been copied from my previous note and have been updated to reflect today's visit note June 06, 2025, all reflect my current medical decision making from date of this visit. The patient is following with his other physicians for his other paxton problems. Recommendations to share with Primary care physician : Dear Dr. Wang: I had the pleasure of seeing your patient, Mr. Toscano. I have enclosed a copy of my clinic notewith my assessment and recommendations for this patient. Please see discussion regarding patient's wishes to discontinue his care at our clinic. He relayed that he is comfortable with you following and managing his RA. He is continuing his care with his local telephonic nurse. Please see above discussion on recommendations. He will need regular labs for methotrexate and sulfasalazine monitoring. He will need a recheck CRP to ensure has improved Infection precautions are recommended while on immunosuppressive therapy (IMT) Folic acid/folate supplement is recommended while on methotrexate -He relayed you are managing his anemia and his telephonic nurse is completing further evaluation. -His phosphorous was low. I advised him on phosphorous rich diet. Recommend recheck phosphorous to ensure normalizes. -Consider monitoring vitamin D deficiency, colton winter season -Consider shingrix and pneumonia vaccines, if not already received, in addition to the other recommended age appropriate immunizations. Consider holding methotrexate for about 1 week following vaccines, especially flu, covid. For any live vaccines, methotrexate and other IMT need to be held longer prior and after. Please refer to [employer] Guidelines for up to date recommendations. His hepatitis B suf Ab was negative in 11/2023. If not already completed, consider hepatitis B vaccination. -Please consider avoiding steroids use, when possible, due to the high risk of bone loss and Osteoporosis. -Continuous f/u with PCP for cardiovascular disease prevention, as risk is reported to be increasedin patients with RA, and for age appropriate cancer screening and routine health maintenance. -Infection precautions and age appropriate immunization recommended. -Continued follow up with telephonic nurse for IBD management and monitoring for liver disease, as they deem necessary Thank you for allowing me to participate in the care of your patient. Darrian Fischer MD Jose L Wang MD [address] [facility] [address] We reassured patient that we have been sending letters and copy of my visit note after each of his office visits. They have been faxed to his Primary care physician office Today, I have also asked my medical technologist microbiology to mail this visit note and letter to his Primary care physician office mailing address. Medical Decision Making: Problems: Moderate: 2+ stable chronic illnesses Data: Unique source(s) for external note(s) reviewed: 3+ Unique test result(s) reviewed: 3+ Discussed management or test w/ external physician/QHCP/source Medical Decision Making Level: 4 - Moderate documented in this encounter Plan of Treatment Upcoming Encounters Date Type Department Care Team (Late st Contact Info) Description 10/31/2025 10:00 AM EST Office Visit Rheumatology [address] [place] [address] Darrian Dubon MD [address] [place] [address] Please also offer another apt later in 2024 or early 2025 (please use 30 min slot) for RA/OP documented as of this encounter Visit Diagnoses Diagnosis Seropositive rheumatoid arthritis (HCC)- Primary Rheumatoid arthritis Rheumatoid arthritis 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) On methotrexate therapy On sulfasalazine therapy Ulcerative pancolitis (HCC) [place] ulcerative (chronic) colitis Osteopenia of multiple sites History of osteoporosis Personal history of other musculoskeletal disorders History of bisphosphonate therapy Personal history of other drug therapy Encounter to discuss test results Other specified counseling Encounter for medication review and counseling Other specified counseling Counseling on health promotion and disease prevention Other specified counseling documented in this encounter Care Teams Oracle Database Manager Relationship Specialty Start Date End Date Jose L Wang MD PCP - General Family Medicine 01/18/14 documented as of this encounter
--- OUTSIDE RECORDS SUMMARY | 2025-06-16 08:02 | XMS_ITS | Encounter Summary ---
Author Organization [facility] Address [address] [place] [address] Care Team Providers Care Insect Control Aide Name Role Phone Norm Wang MD Primary Care Provider [phone] Source Comments In the event this information is protected by the Federal Confidentiality of Alcohol and Drug AbusePatient Records regulations: The Federal rules restrict any use of the information to criminally investigate or prosecute any alcohol or drug abuse patient.[facility] Encounter Details Date Type Department Care Team (Late st Contact Info) Description 10/08/2015 Patient Msg Medical Records [address] [place] [id number] Provider, [facility] results Social History Tobacco Use [...] 10:00 AM EST Office Visit Rheumatology [address] [place] [address] Darrian Dubon MD [address] [place] [address] Please also offer another apt later in 2024 or early 2025 (please use 30 min slot) for RA/OP documented as of this encounter Visit Diagnoses Not on filedocumented in this encounter Care Teams Insect Control Aide Relationship Specialty Start Date End Date Norm Wang MD PCP - General Family Medicine 01/18/14 documented as of this encounter
--- OUTSIDE RECORDS SUMMARY | 2025-06-16 08:02 | XMS_ITS | Clinical Summary ---
Author Organization [facility] Address [address] [place] [address] Care Team Providers Care Hydro Plant Technician Name Role Phone Unavailable Primary Care Provider [...]
--- OUTSIDE RECORDS SUMMARY | 2025-06-16 08:02 | XMS_ITS | Clinical Summary ---
Author Organization [facility] Address [address] [place] [id number] Care Team Providers Care Bookmobile Driver Name Role Phone Norm Wang MD Primary Care Provider [phone] Allergies No known active allergies Medications ezetimibe [...] MOUTH 4 TIMES A DAY 3 Active ENTYVIO 300 mg injection 4 Active ferrous sulfate 325 mg (65 mg iron) tablet 1 tablet Orally bid for 30 days 5 Active potassium chloride SR (MICRO-K) 10 mEq CR capsule 1 tablet with food Orally Twice Daily for 30 days 5 Active tiZANidine (ZANAFLEX) 4 mg tablet Take 8 mg by mouth daily at bedtime. Active methotrexate 2.5 mg tablet TAKE 4 TABLETS BY MOUTH WEEKLY Active tamsulosin (FLOMAX) 0.4 mg Take 1 capsule by mouth every afternoon. 3 11/02/20 23 Discontinued( Long-Term Duplicate Med) turmeric root extract 500 mg cap Take 500 mg by mouth once daily. Take one(1) tablet three times daily. 06/06/20 25 Discontinued( Discontinued by Patient) meloxicam (MOBIC) 15 mg tablet Take 15 mg by mouth once daily. 06/06/20 25 Discontinued( Discontinued by Patient) traMADol (ULTRAM) 50 mg tablet Take 50 mg by mouth every 6 hours as needed for pain. 06/06/20 25 Discontinued( Discontinued by Patient) Active Problems Problem Noted Date Diagnosed Date Osteoporosis 10/19/2018 Ulcerative pancolitis 02/05/2017 Encounter for monitoring of etanercept therapy 0 02/07/2016 Vitamin D deficiency 10/05/2015 Rheumatoid arthritis with positive rheumatoid fa ctor 09/12/2015 Encounters Date Type Department Care Team Description 06/06/2025 8:20 AM EDT Office Visit Rheumatology [address] [facility] [place] [address] Spencer Dubon MD Seropositive rheumatoid arthritis (HCC) (Primary Dx); Rheumatoid arthritis 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); On methotrexate therapy; On sulfasalazine therapy; Ulcerative pancolitis (HCC); Osteopenia of multiple sites; History of osteoporosis; History of bisphosphonate therapy; Encounter to discuss test results; Encounter for medication review and counseling; Counseling on health promotion and disease prevention 06/06/2025 7:45 AM EDT - 06/06/2025 11:59 PM EDT Hospital Encounter Radiology [address] [place] [address] Seropositive rheumatoid arthritis (HCC) [M05.9] Discharge Disposition: Home 05/23/2025 Travel 03/23/2025 Orders Only Infusion [address] [facility] [place] [address] Fredy Farnsworth [facility] from Last 3 Months Immunizations Immunization Administration [...] is lower risk 8 05/04/2023 Data from: https://www.neighborhoodatlas.medicine.[facility].edu/. Last address used for calculation [address] 05/04/2023 Sex and Gender Information Value Date Recorded Sex Assigned at Not on file Legal Sex Male 3:19 PM EST Gender Identity Not on file Sexual Orientation Not on file Last Filed Vital Signs Vital Sign Reading Time Taken Comments Blood Pressure 124/62 06/06/2025 8:17 AM EDT Pulse 66 06/06/2025 8:17 AM EDT Temperature 36.9 C (98.4 F) 05/09/2024 9:08 AM EDT Respiratory Rate 18 02/02/2020 8:37 AM EDT Oxygen Saturation 97% 05/09/2024 9:08 AM EDT Inhaled Oxygen Concentration - - Weight 75.3 kg (166 lb) 06/06/2025 8:17 AM EDT Height 167.6 cm (5' 5.98 ) 02/02/2020 8:37 AM ED T Body Mass Index 26.81 02/02/2020 8:37 AM EDT Plan of Treatment Upcoming Encounters Date Type Department Care Team (Late st Contact Info) Description 10/31/2025 10:00 AM EST Office Visit Rheumatology [address] [place] [address] Spencer Dubon MD [address] [facility] [place], [place] [id number] Please also offer another apt later in [...] PPSV23, PCV20 or PCV21) 05/03/2020 11/01/2015, 05/03/2015 RSV Vaccine (1 - Risk 60-74 years 1-dose series) 2024 Medicare Advantage Annual We llness Visit 11/16/2024 Influenza Vaccine (#1) 2025 , 09/27/2020, 10/28/2019, Additional history exists Diabetes Screening 12/01/2026 12/01/2023, 1 , 02/10/2019, Additional history exists Shingrix Vaccine Completed 06/09/2022, 03/17/2022 Hepatitis C Screening Completed 12/01/2023 , 12/01/2023, 08/29/2015 Procedures Procedure Name Priority Date/Time Associated Diagnosis Comments BD DXA TRABECULAR BONE SCORE (TBS) Routine 06/06/2025 8:13 AM EDT Seropositive rheumatoid arthritis (HCC) Ulcerative pancolitis (HCC) Other osteoporosis without current pathological fracture History of bisphosphonate therapy DXA-AXIAL SKELETON Routine 06/06/2025 8: 13 AM EDT Seropositive rheumatoid arthritis (HCC) Ulcerative pancolitis (HCC) Other osteoporosis without current pathological fracture History of bisphosphonate therapy C TELOPEPTIDE, BETA Routine 05/23/2025 8 :03 AM EDT Other osteoporosis without current pathological fracture History of bisphosphonate therapy RENAL FUNCTION PANEL Routine 05/23/2025 8:03 AM EDT Other osteoporosis without current pathological fracture History of bisphosphonate therapy VITAMIN D 25 HYDROXY Routine 05/23/2025 8:03 AM EDT Seropositive rheumatoid arthritis (HCC) Ulcerative pancolitis (HCC) Other osteoporosis without current pathological fracture History of bisphosphonate therapy C-REACTIVE PROTEIN (CRP) Routine 05/23/2025 8:03 AM EDT Seropositive rheumatoid arthritis (HCC) Ulcerative pancolitis (HCC) CBC + DIFF Routine 05/23/2025 8:03 AM EDT Seropositive rheumatoid arthritis (HCC) Rheumatoid arthritis 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) On sulfasalazine therapy Ulcerative pancolitis (HCC) HEPATITIS C ANTIBODY IA WITH CONFIRMATION Routine 12/01/2023 5:00 PM EST Rheumatoid arthritis 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) COMPREHENSIVE METABOLIC PANEL Routine 12/01/2023 5:00 PM EST Rheumatoid arthritis 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) from Last 3 Months or Most Recently Relevant to Health Maintenance Results * BD DXA TRABECULAR BONE SCORE (TBS) (06/06/2025 8:13 AM EDT) LOWEST T-SCORE -2.1 DIVIS ION OF RADIOLOGY Anatomical Region Laterality Modality Other [...] FOR MORE INFORMATION ABOUT DIAGNOSIS AND TREATMENT: [facility] Center for Osteoporosis and Metabolic Bone Disease:? www.ccf.org/arthritis/osteo National Osteoporosis Foundation:? www.nof.org International Society of Clinical Densitometry www.iscd.org Gasket Inspector: [id number] Transcribe Date/Time: Jun 06 2025 8:19A Dictated [...] years, Gender: Male SCANNER INFORMATION: DXA Model: POW [id number] Date Scanned: 06/06/2025 8:13 AM CLINICAL HISTORY: [...] degraded (1.231 - 1.310) Procedure Note Provider, [facility] - 06/12/2025 * * *Final Report* * * DATE OF EXAM: Jun 06 2025 8:13AM [facility] 0801 - BD DXA TRABECLR BONE SCORE (TBS) / PROCEDURE REASON: multiple diagnoses * * * * Physician Interpretation * * * * EXAMINATION: DXA BONE DENSITOMETRY BD DXA - AXIAL SKELETON, BD DXA TRABECULAR BONE SCORE (TBS) PATIENT DEMOGRAPHICS: Age: 60 years, Gender: Male SCANNER INFORMATION: DXA Model: POW [id number] Date Scanned: 06/06/2025 8:13 AM CLINICAL HISTORY: [...] FOR MORE INFORMATION ABOUT DIAGNOSIS AND TREATMENT: [facility] Center for Osteoporosis and Metabolic Bone Disease:? www.ccf.org/arthritis/osteo National Osteoporosis Foundation:? www.nof.org International Society of Clinical Densitometry www.iscd.org Gasket Inspector: [id number] Transcribe Date/Time: Jun 06 2025 8:19A Dictated by : SPENCER DUBON MD This examination was interpreted and the report reviewed and electronically signed by: SPENCER DUBON MD on Jun 12 2025 5:22PM EST us Spencer Dubon MD RAD-PAMA Final Resul t * DXA-AXIAL SKELETON (06/06/2025 8:13 AM EDT) LOWEST T-SCORE -2.1 DIVIS ION OF RADIOLOGY Anatomical Region Laterality Modality Other [...] FOR MORE INFORMATION ABOUT DIAGNOSIS AND TREATMENT: [facility] Center for Osteoporosis and Metabolic Bone Disease:? www.ccf.org/arthritis/osteo National Osteoporosis Foundation:? www.nof.org International Society of Clinical Densitometry www.iscd.org Gasket Inspector: [id number] Transcribe Date/Time: Jun 06 2025 8:19A Dictated by : SPENCER DUBON MD This examination was interpreted and the report reviewed and electronically signed by: SPENCER DUBON MD on Jun 12 2025 5:22PM EST Narrative 06/12/2025 5:24 PM EDT * * *Final Report* * * DATE OF EXAM: Jun 06 2025 8:13AM LN 0804 - BD DXA - AXIAL SKELETON / PROCEDURE REASON: multiple diagnoses * * * * Physician Interpretation * * * * EXAMINATION: DXA BONE DENSITOMETRY BD DXA - AXIAL SKELETON, BD DXA TRABECULAR BONE SCORE (TBS) PATIENT DEMOGRAPHICS: Age: 60 years, Gender: Male SCANNER INFORMATION: DXA Model: POW [id number] Date Scanned: 06/06/2025 8:13 AM CLINICAL HISTORY: [...] degraded (1.231 - 1.310) Procedure Note Provider, [facility] - 06/12/2025 * * *Final Report* * * DATE OF EXAM: Jun 06 2025 8:13AM [facility] 0804 - BD DXA - AXIAL SKELETON / PROCEDURE REASON: multiple diagnoses * * * * Physician Interpretation * * * * EXAMINATION: DXA BONE DENSITOMETRY BD DXA - AXIAL SKELETON, BD DXA TRABECULAR BONE SCORE (TBS) PATIENT DEMOGRAPHICS: Age: 60 years, Gender: Male SCANNER INFORMATION: DXA Model: POW [id number] Date Scanned: 06/06/2025 8:13 AM CLINICAL HISTORY: [...] FOR MORE INFORMATION ABOUT DIAGNOSIS AND TREATMENT: [facility] Center for Osteoporosis and Metabolic Bone Disease:? www.ccf.org/arthritis/osteo National Osteoporosis Foundation:? www.nof.org International Society of Clinical Densitometry www.iscd.org Gasket Inspector: [id number] Transcribe Date/Time: Jun 06 2025 8:19A Dictated by : SPENCER DUBON MD This examination was interpreted and the report reviewed and electronically signed by: SPENCER DUBON MD on Jun 12 2025 5:22PM EST us Spencer Dubon MD RAD-PAMA Final Resul t * C TELOPEPTIDE, BETA (05/23/2025 8:03 AM EDT) C Telopeptide, Beta Cross Linked 374 132 - 752 pg/mL 05/24/2025 10:58 AM EDT [facility] Blood BLOOD SPECIMEN / Unknown Venipuncture / Unknown 05/23/2025 8:03 AM EDT 05/23/2025 8:03 AM EDT Spencer Dubon MD LABORATORY Final Resul t Performing Organization Address City/[facility]/ZIP Co de Phone Number [facility] [address] [place] [address], [place] * VITAMIN D 25 HYDROXY (05/23/2025 8:03 AM EDT) Vitamin D 25 Hydroxy 60.0 31.0 - 80.0 ng/mL 05/23/2025 7:58 PM EDT [facility] Blood BLOOD SPECIMEN / Unknown Venipuncture / Unknown 05/23/2025 8:03 AM EDT 05/23/2025 8:03 AM EDT Spencer Dubon MD LABORATORY Final Resul t Performing Organization Address [facility] de Phone Number [facility] [place] [address], [place] * (ABNORMAL) RENAL FUNCTION PANEL (05/23/2025 8:03 AM EDT) Albumin 4.0 3.9 - 4.9 g/dL 05/23/2025 8:39 AM EDT [facility] Calcium, Total 9.5 8.5 - 10.2 mg/dL 05/23/2025 8:39 AM EDT [facility] Phosphorus 2.3(L) 2.7 - 4.8 mg/dL 05/23/2025 8:39 AM EDT [facility] Glucose 135(H) 74 - 99 mg/dL 05/23/2025 8:39 AM EDT [facility] Comment: The [place] Diabetes Association (ADA) provides guidance for cutoff [...] Standards of Medical Care in Diabetes 2016, [place] Diabetes Association. Diabetes Care. 2016.39(Suppl 1). BUN 17 9 - 24 mg/dL 05/23/2025 8:39 AM EDT [facility] Creatinine 0.73 0.73 - 1.22 mg/dL 05/23/2025 8:39 AM EDT [facility] Sodium 140 136 - 144 mmol/L 05/23/2025 8:39 AM EDT [facility] Potassium 4.2 3.7 - 5.1 mmol/L 05/23/2025 8:39 AM EDT [facility] Chloride 105 98 - 107 mmol/L 05/23/2025 8:39 AM EDT [facility] CO2 23 22 - 30 mmol/L 05/23/2025 8:39 AM EDT [facility] Anion Gap 12 8 - 15 mmol/L 05/23/2025 8:39 AM EDT [facility] Estimated Glomerular Filtration Rate 104 >=60 mL/min/1. 73m 05/23/2025 8:39 AM EDT [facility] Comment:Estimated Glomerular Filtration Rate (eGFR) [...] BLOOD SPECIMEN / Unknown Venipuncture / Unknown 05/23/2025 8:03 AM EDT 05/23/2025 8:03 AM EDT us Spencer Dubon MD LABORATORY Final Resul t [facility] [address] [place] [address] * (ABNORMAL) COMPLETE BLOOD COUNT AND DIFFERENTIAL (05/23/2025 8:03 AM EDT) WBC 7.96 3.70 - 11.00 k/uL 05/23/2025 8:17 AM EDT [facility] RBC 3.86(L) 4.20 - 6.00 m/uL 05/23/2025 8:17 AM EDT [facility] Hemoglobin 11.6(L) 13.0 - 17.0 g/dL 05/23/2025 8:17 AM EDT [facility] Hematocrit 35.9(L) 39.0 - 51.0 % 05/23/2025 8:17 AM EDT [facility] MCV 93.0 80.0 - 100.0 fL 05/23/2025 8:17 AM EDT [facility] MCH 30.1 26.0 - 34.0 pg 05/23/2025 8:17 AM EDT [facility] MCHC 32.3 30.5 - 36.0 g/dL 05/23/2025 8:17 AM EDT [facility] RDW-CV 15.0 11.5 - 15.0 % 05/23/2025 8:17 AM EDT [facility] Platelet Count 337 150 - 400 k/uL 05/23/2025 8:17 AM EDT [facility] MPV 8.4(L) 9.0 - 12.7 fL 05/23/2025 8:17 AM EDT [facility] Neutrophils % 69.1 % 05/23/2025 8:17 AM EDT [facility] Abs Neut 5.50 1.45 - 7.50 k/uL 05/23/2025 8:17 AM EDT [facility] Lymphocytes % 21.2 % 05/23/2025 8:17 AM EDT [facility] Abs Lymph 1.69 1.00 - 4.00 k/uL 05/23/2025 8:17 AM EDT [facility] Monocytes % 9.2 % 05/23/2025 8:17 AM EDT [facility] Abs Ralls 0.73 <0.87 k/uL 05/23/2025 8:17 AM EDT [facility] Eosinophils % 0.0 % 05/23/2025 8:17 AM EDT [facility] Abs Eosin <0.03 <0.46 k/uL 05/23/2025 8:17 AM EDT [facility] Basophils % 0.4 % 05/23/2025 8:17 AM EDT [facility] Abs Baso 0.03 <0.11 k/uL 05/23/2025 8:17 AM EDT [facility] Immature Granulocytes % 0.1 % 05/23/2025 8:17 AM EDT [facility] Abs Immature Gran <0.03 <0.10 k/uL 05/23/2025 8:17 AM EDT [facility] NRBC 0.0 /100 WBC 05/23/2025 8:17 AM EDT [facility] Absolute nRBC <0.01 <0.01 k/uL 05/23/2025 8:17 AM EDT [facility] Diff Type Auto 05/23/2025 8:17 AM EDT [facility] Blood BLOOD SPECIMEN / Unknown Venipuncture / Unknown 05/23/2025 8:03 AM EDT 05/23/2025 8:03 AM EDT us Spencer Dubon MD LABORATORY Final Resul t [facility] [address] [place] [address] * (ABNORMAL) C-REACTIVE PROTEIN (05/23/2025 8:03 AM EDT) CRP 3.5(H) <0.9 mg/dL 05/23/2025 5:17 PM EDT [facility] Blood BLOOD SPECIMEN / Unknown Venipuncture / Unknown 05/23/2025 8:03 AM EDT 05/23/2025 8:03 AM EDT us Spencer Dubon MD LABORATORY Final Resul t [facility] [address] [facility] [address] [address], [place] * (ABNORMAL) COMP METABOLIC PANEL (12/01/2023 5:00 PM EST) [facility] Protein, Total 8.0 6.3 - 8.0 g/dL 12/02/2023 6:09 AM EST [facility] Albumin 3.9 3.9 - 4.9 g/dL 12/02/2023 6:09 AM EST [facility] Calcium, Total 10.2 8.5 - 10.2 mg/dL 12/02/2023 6:09 AM EST [facility] Bilirubin, Total 0.3 0.2 - 1.3 mg/dL 12/02/2023 6:09 AM EST [facility] Alkaline Phosphatase 171(H) 38 - 113 U/L 12/02/2023 6:09 AM EST [facility] AST 31 14 - 40 U/L 12/02/2023 6:09 AM EST [facility] ALT 22 10 - 54 U/L 12/02/2023 6:09 AM EST [facility] Glucose 101(H) 74 - 99 mg/dL 12/02/2023 6:09 AM EST [facility] Comment: The [place] Diabetes Association (ADA) provides guidance for cutoff [...] Standards of Medical Care in Diabetes 2016, [place] Diabetes Association. Diabetes Care. 2016.39(Suppl 1). BUN 19 9 - 24 mg/dL 12/02/2023 6:09 AM [facility] Creatinine 0.92 0.73 - 1.22 mg/dL 12/02/2023 6:09 AM EST [facility] Sodium 143 136 - 144 mmol/L 12/02/2023 6:09 AM EST [facility] Potassium 4.1 3.7 - 5.1 mmol/L 12/02/2023 6:09 AM [facility] Chloride 106(H) 97 - 105 mmol/L 12/02/2023 6:09 AM [facility] CO2 25 22 - 30 mmol/L 12/02/2023 6:09 AM [facility] Anion Gap 12 9 - 18 mmol/L 12/02/2023 6:09 AM EST [facility] Estimated Glomerular Filtration Rate 96 >=60 mL/min/1.7 3m 12/02/2023 6:09 AM [facility] Comment:Estimated Glomerular Filtration Rate (eGFR) [...] 12/01/2023 5:02 PM EST us Nidia Ascencio ASSISTANT CASINO SHIFT MANAGER.ESTIMATOR [facility]UMBER LABORATORY Final Res ult [facility] [address] [place] [address], * HEPATITIS C ANTIBODY IA WITH CONFIRMATION (12/01/2023 5:00 PM EST) Hep C Antibody IA Negative Negative 12/02/2023 9:58 AM EST [facility] Comment:The result suggests no evidence of active infection with Hepatitis C virus. Should recent infection be suspected, repeat testing may be considered 4-6 weeks after this draw. Blood BLOOD SPECIMEN / Unknown Venipuncture / Unknown 12/01/2023 5:00 PM EST 12/01/2023 5:02 PM EST us Nidia Ascencio ASSISTANT CASINO SHIFT MANAGER.ESTIMATOR [facility] LABORAT[facility] Final Res ult [facility] [address] [facility] [address] [place] [address], from Last 3 Months or Most Recently Relevant to Health Maintenance [facility] Care Teams Bookmobile Driver Relationship Specialty Start Date End Date Norm Wang MD PCP - General Family Medicine 01/18/14
--- OUTSIDE RECORDS SUMMARY | 2025-06-16 08:02 | XMS_ITS | Clinical Summary ---
Author Organization [facility] Address [address] [place] [address] Care Team Providers Care Cloth Mercerizer Back Tender Name Role Phone Norm Wang MD Primary Care Provider [phone] Allergies Active Allergy Reactions Criticality Noted Date [...] CAPSULE BY MOUTH 4 TIMES A DAY 3 Active cholecalciferol (Vitamin D-3) 125 MCG (5000 UT) capsule Take 5,000 Units by mouth in the morning. Active sulfaSALAzine (Azulfidine) 500 MG EC tablet TAKE 2 TABLETS BY MOUTH 4 TIMES A DAY 3 Active omeprazole (PriLOSEC) [address] capsule Take 40 mg by mouth in the morning. Active mesalamine (Rowasa) 4 g enema as directed Rectal Active lisinopril 20 MG tablet 1 (one) time each day at the same time. Active Entyvio 300 MG injection 3 Active ferrous sulfate 325 (65 Fe) MG EC tablet Take 325 mg by mouth in the morning and 325 mg at noon and 325 mg in the evening. Take with meals. Do not crush, chew, or split. Active Turmeric 400 MG capsule Take by mouth Active methotrexate 2.5 MG tablet Take by mouth. Follow directions carefully, and ask to explain any part you do not understand. Take exactly as directed. Active Active Problems Problem Noted Date Diagnosed [...] Description 05/03/2025 10:10 AM EDT [facility] [address] [place] [address] 05/03/2025 10:05 AM EDT [facility] [address] [place] [address] 05/03/2025 10:00 AM EDT Office Visit [facility] [address] [place] [address] Jr. Elias Veliz, DO Pain and swelling of right knee (Primary Dx); History of total left knee replacement; History of total right knee replacement; Pain and swelling of left knee 05/03/2025 Bamboo flowsheet [facility] [address] [place] [address] Jr. Elias Veliz, DO 05/03/2025 Travel 03/29/2025 10:00 AM EDT Office Visit [facility] [address] [place] [address] Jr. Elias Veliz, DO Pain of right hip (Primary Dx); Primary osteoarthritis of right hip; Arthritis of knee, left; History of total hip replacement, right 03/29/2025 9:55 AM EDT [facility] [address] [place] [address] 03/29/2025 Bamboo flowsheet [facility] [address] [place] [phone] Jr. Elias Veliz, DO 03/29/2025 Travel from [...] Description 03/28/2026 10:00 AM EDT Office Visit [facility] [address] [place] [phone] Jr. Elias Veliz, DO [address] [facility] [address] [place] [address] 05/02/2026 10:00 AM EDT Office Visit [facility] [address] [place] [phone] Jr. Elias Veliz, DO [address] [facility] [address] [place] [address] Health Maintenance Due Date Last Done Comments CT Colonography 1964 Colonoscopy 1964 Colorectal Cancer Screening 1964 FIT-DNA 1964 FIT 1964 FOBT 1964 Sigmoidoscopy 1964 Influenza Vaccine (#1) 2025 0, 10/28/2019, 08/29/2019, Additional history exists Procedures Procedure [...] Unremarkable right total knee arthroplasty. Jr. Elias Veliz DO [...] Final Result from Last 3 Months Insurance [facility] Care Teams Cloth Mercerizer Back Tender Relationship Specialty Start Date End Date Norm Wang MD PCP - General Family Medicine 04/21/23
--- OUTSIDE RECORDS SUMMARY | 2025-06-16 08:02 | XMS_ITS | Encounter Summary ---
Author Organization [facility] Address [address] [place] [address] Care Team Providers Care Stationary Engineer Apprentice Name Role Phone Norm Wang MD Primary Care Provider [phone] Encounter Details Date Type Department Care Team (Late Contact Info) Description 04/06/2023 Abstract [facility] [address] [place] [address] Catracho Gross, DO [address] [place] [address] Social History Tobacco Use Types Packs/Day Years [...] Office Visit [facility] [address] [place] [address] Jr. Elias Veliz, DO [address] [place] [address] 05/02/2026 10:00 AM EDT Office Visit [facility] [address] [place] [address] Jr. Elias Veliz, DO [address] [place] [address] documented as of this encounter Visit Diagnoses Not on filedocumented in this encounter Care Teams Stationary Engineer Apprentice Relationship Specialty Start Date End Date Norm Wang MD PCP - General Family Medicine 04/21/23 documented as of this encounter
--- OUTSIDE RECORDS SUMMARY | 2025-06-16 08:02 | XMS_ITS | Encounter Summary ---
Author Organization [facility] Address [address] [place] [id number] Care Team Providers Care Physician Aide Name Role Phone Norm Wang MD Primary Care Provider [phone] Source Comments In the event this information is protected by the Federal Confidentiality of Alcohol and Drug AbusePatient Records regulations: The Federal rules restrict any use of the information to criminally investigate or prosecute any alcohol or drug abuse patient.[facility] Reason for Visit * Reason Comments Radiology XR Encounter Details Date Type Department Care Team (Late st Contact Info) Description 03/14/2024 Radiology Radiology [address] [place] [address] Ant Cesar RT(R) Radiology XR Social History [...] is lower risk 8 05/04/2023 Data from: https://www.neighborhoodatlas.[facility]/. Last address used for calculation [address] 05/04/2023 Sex and Gender Information Value Date [...] PATIENT PRESENTS WITH AN IMPLANTABLE OR ATTACHED SUBPOENA SERVER: No RADIOLOGY DEPARTMENT: General X-ray: Exam(s) Completed: Upper Extremity X- Ray(s): Hand, bilateral PERIPHERAL IV DATA: Not applicable SIGNED BY: RT Haim(R) March 14, 2024 11:11 AM documented in this encounter Plan of Treatment Upcoming Encounters Date Type Department Care Team (Late st Contact Info) Description 10/31/2025 10:00 AM EST Office Visit Rheumatology [address] [place] [address] Darrian Dubon MD [address] [place] [address] Please also offer another apt later in 2024 or early 2025 (please use 30 min slot) for RA/OP documented as of this encounter Visit Diagnoses Not on filedocumented in this encounter Care Teams Physician Aide Relationship Specialty Start Date End Date Norm Wang MD PCP - General Family Medicine 01/18/14 documented as of this encounter
--- OUTSIDE RECORDS SUMMARY | 2025-06-16 08:03 | XMS_ITS | Patient Health Record ---
Author Organization [facility] in [place] Address [address] [place] [address] Care Team Providers Care Band Saw Operator Name Role Phone Toi Wang Primary Care Provider Allergies No Known Allergies Results Component Value Reference Range Notes XR abdomen 1V Reviewed date:11/16/2024 03:45:41 PM Interpretation: Performing Lab: Notes/Report: Source Facility: [place] [address] XRay Report Signed Patient: JAMES SHANKS MR#: [id number] : 1965 Acct:[id number] Age/Sex: 59 / M ADM Date: 11/14/24 Loc: [facility] Attending Dr: Mariajose Brito NP Ordering Physician: Mariajose Brito NP Date of Service: 11/14/24 Procedure(s): XR abdomen 1V Accession Number(s): [id number] cc: Mariajose Brito NP; Jose L Wang M.D. [place] [id number] Patient Name: JAMES SHANKS MRN: [id number] date: 1965 Sex: M Assigned Patient Location: RAD Current Patient Location: Accession/Order Number: [id number] Exam Date: 11/14/2024 12:10 Report Date: 11/15/2024 [...] M.D. Signed By: 11/15/24714 DD/ 2 TD/TT: Inside Wireman: [place] [address] XRay Report Signed Patient: JAMES SHANKS MR#: [id number] : 1965 Acct:[id number] Age/Sex: 59 / M ADM Date: 11/14/24 Loc: RAD Attending Dr: Mariajose Brito NP Ordering Physician: Mariajose Brito NP Date of Service: 11/14/24 Procedure(s): XR abd omen 1V Accession Number(s): [id number] cc: Mariajose Brito STATION MECHANIC HELPER; Jose L Wang M.D. [place] [address] Patient Name: JAMES SHANKS MRN: [id number] date: 1965 Sex: M Assigned Patient Location: RAD Current Patient Location: Accession/Order Numb er: [id number] Exam Date: 12:10 Report Date: 11/15/2024 07:13 [...] M.D. Signed By: 11/15/24714 DD/ 2 TD/TT: Inside Wireman: CT abdomen pelvis wo con Reviewed date:11/27/2024 10:43:04 AM Interpretation: Performing Lab: Notes/Report: Source Facility: [place] [address] CT Scan Report Signed Patient: JAMES SHANKS MR#: [id number] : 1965 Acct:[id number] Age/Sex: 59 / M ADM Date: 11/25/24 Loc: CT Attending Dr: Marcin Cooper M.D. Ordering Physician: Marcin Cooper M.D. Date of Service: 11/25/24 Procedure(s): CT abdomen pelvis wo con Accession Number(s): [id number] cc: Jose L Wang M.D. [place] [address] Patient Name: JAMES SHANKS MRN: [id number] date: 1965 Sex: M Assigned Patient Location: CT Current Patient Location: CT Accession/Order Number: [id number] Exam Date: 11/25/2024 13:15 Report Date: 11/25/2024 13:40 At the request of: MARCIN COOPER Procedure: CT abdomen pelvis wo con EXAM: [...] as described above. Electronically authenticated by: DAMION LOVE Date: 11/25/2024 13:40 Dictated By: Damion Love M.D. Signed By: 11/25/24 1342 DD/ 1340 TD/TT: Inside Wireman: [place] [address] CT Scan Report Signed Patient: JAMES SHANKS MR#: [id number] : 1965 Acct:[id number] Age/Sex: 59 / M ADM Date: 11/25/24 Loc: CT Attending Dr: Alfredo Cooper M.D. Ordering Physician: Marcin Cooper M.D. Date of Service: 11/25/24 Procedure(s): CT abd omen pelvis wo con Accession Number(s): [id number] cc: Jose L Wang M.D. [place] [address] Patient Name: JAMES SHANKS MRN: [id number] date: 1965 Sex: M Assigned Patient Location: CT Current Patient Location: CT Accession/Order Numb er: [id number] Exam Date: 11/25/2024 13:15 Report Date: 11/25/2024 13:40 At the request of: MARCIN COOPER Procedure: CT abdome n pelvis wo con [...] as described above. Electronically authenticated by: DAMION LOVE Date: 11/25/2024 13:40 Dictated By: Damion Love M.D. Signed By: 11/25/24 1342 DD/ 1340 TD/TT: Inside Wireman: CBC AUTO DIFF Reviewed date:01/16/2025 09:43:15 PM Interpretation: Performing Lab: Notes/Report: [facility] , White Blood Count 8.5 4.0-11.0 [...] 3/uL Performing Lab: see note ML - [facility] LB CBC AUTO DIFF Reviewed date:05/16/2025 08:21:40 PM Interpretation: Performing Lab: Notes/Report: [facility] , White Blood Count 6.3 4.0-11.0 10 3/uL Red Blood Count 3.67 4.70-6.10 10 6/uL Hemoglobin 10.9 14.0-18.0 g/dL Hematocrit 33.5 42.0-54.0 % Mean Corpuscular Volume 91.3 80.0-94.0 fL Mean Corpuscular Hemoglobin 29.7 25.9-34.0 pg Mean Corpuscular HGB Conc 32.5 29.9-35.2 g/dL Red Cell Distribution Width 14.7 11.0-15.0 % Platelet Count 333 150-450 10 3/uL Mean Platelet Volume 8.3 9.5-13.5 fL Neutrophils Percent Auto 67.3 43.0-75.0 % Lymphocytes Percent Auto 22.9 20.5-60.0 % Monocytes Percent Auto 9.0 1.7-12.0 % Eosinophils Percent Auto 0.0 0.9-7.0 % Basophils Percent Auto 0.5 0.2-2.0 % Immature Granulocytes Pct Auto 0.3 0.0-0.5 % Neutrophils Absolute Auto 4.3 1.4-6.5 10 3/uL Lymphocytes Absolute Auto 1.5 1.2-3.8 10 3/uL Monocytes Absolute Auto 0.6 0.3-0.8 10 3/uL Eosinophils Absolute Auto 0.0 0.0-0.7 10 3/uL Basophils Absolute Auto 0.0 0.0-0.1 10 3/uL Immature Granulocytes Abs Auto 0.02 0.00-0.03 10 3/uL Performing Lab: see note - [facility] QuantiFERON-TB Gold Plus Reviewed date:04/18/2025 04:37:26 PM Interpretation: Performing Lab: Notes/Report: [facility] , QuantiFERON Incubation . Reference Range: . Incubation performed. QuantiFERON-TB Gold Plus Negative Negative [address] [place], [place] [id number] Infection with M tuberculosis is unlikely, but high risk IU/mL. Chemiluminescence immunoassay methodology No response to M tuberculosis antigens detected. Dogger: Brendon Mcneil PhD, Phone: [phone] reference range is an Antigen minus Nil result of <0.35 (ATS/IDSA/CDC Clinical Practice Guidelines, 2017). The individuals should be considered for additional testing Performed at: [facility] QuantiFERON Criteria Comment . subtracting the Nil value from either TB antigen (Ag) value. The Mitogen tube serves as a control for the test. QuantiFERON-TB Gold Plus is a qualitative indirect test for radiography, and other medical and diagnostic evaluations. The QuantiFERON-TB Gold Plus result is determined by intended for use in conjunction with risk assessment, M tuberculosis infection (including disease) and is QuantiFERON TB1 Ag Value 0.02 . IU/mL QuantiFERON TB2 Ag Value 0.05 . IU/mL QuantiFERON Nil Value 0.05 . IU/mL QuantiFERON Mitogen Value >10.00 . IU/mL Performing Lab: see note - [facility] LB Acute Hepatitis Reviewed date:04/16/2025 04:47:09 PM Interpretation: Performing Lab: Notes/Report: [facility] , Hep A Ab, IgM Negative Negative current HAV infection. A negative anti-HAV IgM result suggests no recent or HBsAg Screen Negative Negative Hep B Core Ab, IgM Negative Negative HCV Ab Non Reactive Non Reactive Interpretation: Comment . infection. individual), or other evidence exists to indicate HCV Dogger: Brendon Mcneil PhD, Phone: [phone] Performed at: [facility] Not infected with HCV unless early or acute infection is suspected (which may be delayed in an immunocompromised [address], [place] [id number] Performing Lab: see note - [facility] LB IRON Reviewed date:04/13/2025 06:19:22 PM Interpretation: Performing Lab: Notes/Report: [facility] , Iron 30.0 65.0-175.0 ug/dL Performing Lab: see note ML - [facility] LB CBC AUTO DIFF Reviewed date:04/13/2025 06:19:22 PM Interpretation: Performing Lab: Notes/Report: [facility] , White Blood Count 10.0 4.0-11.0 10 3/uL Red Blood Count 4.12 4.70-6.10 10 6/uL Hemoglobin 12.6 14.0-18.0 g/dL Hematocrit 38.0 42.0-54.0 % Mean Corpuscular Volume 92.2 80.0-94.0 fL Mean Corpuscular Hemoglobin 30.6 25.9-34.0 pg Mean Corpuscular HGB Conc 33.2 29.9-35.2 g/dL Red Cell Distribution Width 12.9 11.0-15.0 % Platelet Count 417 150-450 10 3/uL Mean Platelet Volume 8.3 9.5-13.5 fL Neutrophils Percent Auto 74.9 43.0-75.0 % Lymphocytes Percent Auto 15.6 20.5-60.0 % Monocytes Percent Auto 9.0 1.7-12.0 % Eosinophils Percent Auto 0.0 0.9-7.0 % Basophils Percent Auto 0.4 0.2-2.0 % Immature Granulocytes Pct Auto 0.1 0.0-0.5 % Neutrophils Absolute Auto 7.5 1.4-6.5 10 3/uL Lymphocytes Absolute Auto 1.6 1.2-3.8 10 3/uL Monocytes Absolute Auto 0.9 0.3-0.8 10 3/uL Eosinophils Absolute Auto 0.0 0.0-0.7 10 3/uL Basophils Absolute Auto 0.0 0.0-0.1 10 3/uL Immature Granulocytes Abs Auto 0.01 0.00-0.03 10 3/uL Performing Lab: see note ML - [facility] LB MR cervical spine wo con Reviewed date:02/04/2025 12:01:00 PM Interpretation: Performing Lab: Notes/Report: Source Facility: [facility] [place] [address] [place] [address] Magnetic Resonance Report Signed Patient: JAMES SHANKS MR#: [id number] : 1965 Acct:[id number] Age/Sex: 59 / M ADM Date: 02/03/25 Loc: MRI Attending Dr: Jose L Wang M.D. Ordering Physician: Jose L Wang M.D. Date of Service: 02/03/25 Procedure(s): MR cervical spine wo con Accession Number(s): [id number] cc: Jose L Wang M.D. [place] [address] Patient Name: JAMES SHANKS MRN: [id number] date: 1965 Sex: M Assigned Patient Location: MRI Current Patient Location: MRI Accession/Order Number: [id number] Exam Date: 02/03/2025 14:31 Report Date: 02/03/2025 14:34 At the request of: JOSE L WANG MD Procedure: MR cervical spine wo con [...] by: Anil Tillman Jr., D.O.02/03/2025 2:34 PM Dictation Location: [place] [address] Electronically authenticated by: [id number] Y Date: 02/03/2025 14:34 Dictated By: Anil Tillman M.D. Signed By: 02/03/251436 DD/ 33 TD/TT: Inside Wireman: [place] [address] Magnetic Resonance Report Signed Patient: JAMES SHANKS MR#: [id number] : 1965 Acct:[id number] Age/Sex: 59 / M ADM Date: 02/03/25 Loc: MRI Attending Dr: Aden Wang M.D. Ordering Physician: Jose L Wang M.D. Date of Service: 02/03/25 Procedure(s): MR cervical spine wo con Accession Number(s): [id number] cc: Jose L Wang M.D. [place] [address] Patient Name: JAMES SHANKS MRN: [id number] date: 1965 Sex: M Assigned Patient Location: MRI Current Patient Location: MRI Accession/Order Numb er: [id number] Exam Date: 02/03/2025 14:31 Report Date: 02/03/2025 14:34 At the request of: JOSE L WANG MD Procedure: MR cervic al spine wo [...] Tillman Jr., DBrittneyOBrittney02/03/2025 2:34 PM Dictation Location[facility] Electronically authenticated by: [id number] Y Date: 02/03/2025 14:34 Dictated By: Anil Tillman M.D. Signed By: 02/03/25 1437 DD/ 1434 TD/TT: Inside Wireman: IRON Reviewed date:01/26/2025 07:47:19 PM Interpretation: Performing Lab: Notes/Report: [facility] , Iron 37.0 65.0-175.0 ug/dL Performing Lab: see note ML - [facility] LB FERRITIN Reviewed date:01/26/2025 07:47:19 PM Interpretation: Performing Lab: Notes/Report: [facility] , Ferritin 504.0 26.0-388.0 ng/mL Performing Lab: see note ML - [facility] LB CBC AUTO DIFF Reviewed date:01/26/2025 07:47:19 PM Interpretation: Performing Lab: Notes/Report: [facility] , White Blood Count 8.5 4.0-11.0 [...] Performing Lab: see note ML - [facility] LB XR shoulder MELISSA min 2V Reviewed date:01/24/2025 04:03:52 PM Interpretation: Performing Lab: Notes/Report: Source Facility: [facility] [place] [address] [place] [address] XRay Report Signed Patient: JAMES SHANKS MR#: [id number] : 1965 Acct:[id number] Age/Sex: 59 / M ADM Date: 01/23/25 Loc: RAD Attending Dr: Jose L Wang M.D. Ordering Physician: Jose L Wang M.D. Date of Service: 01/23/25 Procedure(s): XR shoulder MELISSA min 2V Accession Number(s): [id number] cc: Jose L Wang M.D. [address] [address] Patient Name: JAMES SHANKS MRN: [facility]:[id number] date: 1965 Sex: M Assigned Patient Location: [facility] Current Patient Location: Accession/Order Number: [id number] Exam Date: 01/23/2025 21:02 Report Date: 01/24/2025 [...] Ta Finn M.D.01/24/2025 3:15 PM Dictation Location: [place] [address] Electronically authenticated by: [id number] Y Date: 01/24/2025 15:15 Dictated By: Ta Finn D.O. Signed By: 01/24/25 1518 DD/ 14 TD/TT: Inside Wireman: [place] [address] XRay Report Signed Patient: JAMES SHANKS MR#: [id number] : 1965 Acct:[id number] Age/Sex: 59 / M ADM Date: 01/23/25 Loc: [facility] Attending Dr: Dougla s Hoy M.D. Ordering Physician: Jose L Wang M.D. Date of Service: 01/23/25 Procedure(s): XR shoulder MELISSA min 2V Accession Number(s): [id number] cc: Jose L Wang M.D. [place] [address] Patient Name: JAMES SHANKS MRN: [facility]:[id number] date: 1965 Sex: M Assigned Patient Location: [facility] Current Patient Location: Accession/Order Numb er: [id number] Exam Date: 01/23/2025 21:02 Report Date: 01/24/2025 15:15 At the request of: JOSE L WANG MD Procedure: XR shoul ruben MELISSA min 2V 3 views both shoulders HISTORY: Acute bilat eral shoulder pain with radiation of the neck Marked right glenohumeral degeneration. Joint space narrowing with widening of the glenoid and marginal spurring. Marked acromiohumeral joint space narrowing. Remodelin g of the undersurface of acromion. The findings are consistent with die cutter clark rotator cuff tear. Inferior spurring of [...] Ta Finn M.D.01/24/2025 3:15 PM Dictation Location: [place] [address] Electronically authenticated by: [id number] Y Date: 01/24/2025 15:15 Dictated By: Ta Finn D.O. Signed By: 01/24/25 1518 DD/ 14 TD/TT: Inside Wireman: TSH Reviewed date:12/21/2024 12:30:36 PM Interpretation: Performing Lab: Notes/Report: [facility] , Thyroid Stimulating Hormone 2.130 0.358-3.740 uIU/mL Performing Lab: see note ML - [facility] LB T4 Reviewed date:12/21/2024 12:30:36 PM Interpretation: Performing Lab: Notes/Report: [facility] , T4 Thyroxine 9.50 4.50-12.10 ug/dL Performing Lab: see note ML - [facility] LB PSA SCREENING Reviewed date:12/21/2024 12:30:36 PM Interpretation: Performing Lab: Notes/Report: [facility] , Prostate Specific Antigen Scrn 2.84 <=4.00 ng/mL Performing Lab: see note - [facility] PROF 14(COMP METB) Reviewed date:12/21/2024 12:30:36 PM Interpretation: Performing Lab: Notes/Report: [facility] , Sodium 143 136-145 mmol/L Potassium [...] 1.0 Performing Lab: see note ML - [facility] FREE T3 Reviewed date:12/21/2024 12:30:36 PM Interpretation: Performing Lab: Notes/Report: [facility] , Free T3 2.32 2.18-3.98 pg/mL Performing Lab: see note ML - [facility] LB LIPID PROFILE Reviewed date:12/21/2024 12:30:36 PM Interpretation: Performing Lab: Notes/Report: [facility] , Triglycerides 31 <=150 mg/dL Cholesterol [...] 7.1 AVERAGE RISK Performing Lab: see note - [facility] GLYCOHEMOGLOBIN A1C Reviewed date:12/21/2024 12:30:36 PM Interpretation: Performing Lab: Notes/Report: [facility] , Glycohemoglobin A1C 5.1 4.5-6.2 % ADA RECOMMENDED LIMIT 4.0 - 6.0 ACTION SUGGESTED > 7.0 ADA THERAPEUTIC TARGET < 7.0 Estimated Average Glucose 100 Performing Lab: see note - [facility] CBC AUTO DIFF Reviewed date:12/21/2024 12:30:36 PM Interpretation: Performing Lab: Notes/Report: [facility] , White Blood Count 5.9 4.0-11.0 [...] 3/uL Performing Lab: see note ML - [facility] LB IRON Reviewed date:03/01/2025 08:13:49 PM Interpretation: Performing Lab: Notes/Report: [facility] , Iron 20.0 65.0-175.0 ug/dL Performing Lab: see note ML - [facility] LB CBC AUTO DIFF Reviewed date:03/01/2025 08:13:49 PM Interpretation: Performing Lab: Notes/Report: [facility] , White Blood Count 8.0 4.0-11.0 [...] 3/uL Performing Lab: see note ML - [facility] LB PROF 14(COMP METB) Reviewed date:10/11/2024 06:03:50 PM Interpretation: Performing Lab: Notes/Report: [facility] , Sodium 143 136-145 mmol/L Potassium [...] Performing Lab: see note ML - [facility] LB LIPID PROFILE Reviewed date:10/11/2024 06:03:50 PM Interpretation: Performing Lab: Notes/Report: [facility] , Triglycerides 47 <=150 mg/dL Cholesterol [...] RISK Performing Lab: see note ML - [facility] PROF 14(COMP METB) Reviewed date:05/16/2025 08:21:40 PM Interpretation: Performing Lab: Notes/Report: [facility] , Sodium 143 136-145 mmol/L Potassium 3.1 3.5-5.1 mmol/L Chloride 106 98-107 mmol/L Carbon Dioxide 26.2 21.0-32.0 mmol/L Anion Gap 13.9 Glucose 136 74-106 mg/dL Blood Urea Nitrogen 13.0 7.0-18.0 mg/dL Creatinine 0.77 0.70-1.30 mg/dL Estimated GFR ( Emilie >60 >=60 mL/min/1.73m 2 Estimated GFR (Non- Lisa >60 >=60 mL/min/1.73m 2 BUN Creatinine Ratio 16.9 Calcium 9.1 8.5-10.1 mg/dL Bilirubin Total 0.3 0.2-1.0 mg/dL Aspartate Amino Transferase 18 15-37 U/L Alanine Aminotransferase 26 16-63 U/L Alkaline Phosphatase 129 46-116 U/L Total Protein 7.2 6.4-8.2 g/dL Albumin Level 3.0 3.4-5.0 g/dL Globulin 4.2 Albumin Globulin Ratio 0.7 Performing Lab: see note ML - [facility] IRON Reviewed date:05/16/2025 08:21:40 PM Interpretation: Performing Lab: Notes/Report: [facility] , Iron 52.0 65.0-175.0 ug/dL Performing Lab: see note ML - [facility] XR cervical spine 2-3V Reviewed date:01/24/2025 09:27:09 AM Interpretation: Performing Lab: Notes/Report: Source Facility: [facility] [place] [address] [place] [address] XRay Report Signed Patient: JAMES SHANKS MR#: [id number] : 1965 Acct:[id number] Age/Sex: 59 / M ADM Date: 01/23/25 Loc: RAD Attending Dr: Jose L Wang M.D. Ordering Physician: Jose L Wang M.D. Date of Service: 01/23/25 Procedure(s): XR cervical spine 2-3V Accession Number(s): [id number] cc: Jose L Wang M.D. The [place] [address] Patient Name: JAMES SHANKS MRN: [id number]:[id number] date: 1965 Sex: M Assigned Patient Location: RAD Current Patient Location: RAD Accession/Order Number: [id number] Exam Date: 01/23/2025 21:06 Report Date: 01/23/2025 [...] Ta Finn M.D.01/23/2025 9:09 PM Dictation Location: [place] [address] Electronically authenticated by: [id number] Y Date: 01/23/2025 21:09 Dictated By: Ta Finn D.O. Signed By: 01/23/252110 DD/ 08 TD/TT: Inside Wireman: [place] [address] XRay Report Signed Patient: JAMES SHANKS MR#: [id number] : 1965 Acct:[id number] Age/Sex: 59 / M ADM Date: 01/23/25 Loc: RAD Attending Dr: Aden Wang M.D. Ordering Physician: Jose L Wang M.D. Date of Service: 01/23/25 Procedure(s): XR cervical spine 2-3V Accession Number(s): [id number] cc: Jose L Wang M.D. [place] [address] Patient Name: JAMES SHANKS MRN: [facility]:[id number] date: 1965 Sex: M Assigned Patient Location: [facility] Current Patient Location: RAD Accession/Order Numb er: [id number] Exam Date: 01/23/2025 21:06 Report Date: 01/23/2025 21:09 At the request of: JOSE L WANG MD Procedure: XR cervic al spine 2-3V [...] Ta Finn M.D.01/23/2025 9:09 PM Dictation Location: [place] [address] Electronically authenticated by: [id number] Y Date: 01/23/2025 21:09 Dictated By: Ta Finn D.O. Signed By: 01/23/252110 DD/ 08 TD/TT: Inside Wireman: Reason For Referral Diagnosis 1 Nephrolithiasis (N20 .0) Referral Organization [facility] Referring Provider First Name Toi Referring Provider Last Name Felipe Referring Provider Speciality [facility] icine Referred Provider Marcin Cooper Referred Provider Specialty Urology Referral Priority Routine Medications Medication SIG (Take, Route, Frequency, Duration) Notes Start Date End Date Status Omeprazole 40 MG TAKE 1 CAPSULE BY MO IDH EVERY DAY for 30 days Active Multi Vitamin - 1 tablet Orally Once a day for 30 day(s) 09/11/2023 Active sulfaSALAzine 500 MG 2 tabs Orally 4x a day Active Folic Acid 1 MG TAKE 1 TABLET BY IRMA TH EVERY DAY for 30 days Active Ferrous Sulfate 325 (65 Fe) MG 1 tablet Orally once a day for 30 days 12/21/2024 Active Meloxicam 15 MG 1 tablet Orally twic e daily for 30 days 01/23/2025 Active Ferrous Sulfate 325 (65 Fe) MG 1 tablet Orally bid for 30 days 03/02/2025 Active Lisinopril 20 MG 1 tablet Orally [...] 10 MG TAKE 1 TABLET BY IRMA EVERY DAY FOR 30 DAYS for 30 Active Entyvio Pen 108 MG/0.68ML inject Subcuta neous every 2 weeks 11/22/2024 Active Vitamin D3 125 MCG (5000 UT) 1 capsule Orally Once a day Active Potassium Chloride ER 10 MEQ 1 tablet with food Orally Twice Daily for 30 days 05/17/2025 Active Methotrexate Sodium 2.5 MG 4 tablets Ora lly weekly for 28 days 04/18/2025 Active Immunizations Vaccine Route Administration Date Status Comme nts Flu, Flucelvax (31838) 6 mos and older, single-dose syringe IM [...] Problem Status W/U Status Risk Notes Problem 372321343 Benign neoplasm of colon, 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 confirmed Problem 18822000 Ulcerative colitis, unspecified with unspecified complications (K51.919) Active confirmed Problem Cervical radiculopat hy (59027628) Cervical radiculopathy (M54.12) Active confirmed Problem Eczema (39695968) Eczema (L30.9) Active confirm ed Problem Benign essential hypertension (6150765) Benign essential hypertension (I10) Active confirmed Problem Nephrolithiasis (31431030) Nephrolithiasis (N20.0) Active confirmed Problem Well adult (602240944) Well adul t (Z00.00) Active confirmed Problem Chronic pain (41396070) Chronic pain (G89.29) Active confirmed Problem Vitamin D deficiency (81853404) Vitamin D deficiency disease (E55.9) Active confirmed Problem Adult idiopathic generalized osteoporosis (329958531) Adult idiopathic generalized osteoporosis (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) Active confirmed Problem Iron deficiency anem ia (32138314) Anemia, iron deficiency (D50.9) Active confirmed Problem Chronic ulcerative pancolitis (428430637) Chronic pancolonic ulcerative colitis (K51.00) Active confirmed Problem Rheumatoid arthritis (51241576) Arthritis, rheumatoid (M06.9) Active confirmed Problem Pure hypercholesterolemia (714875404) Elevated cholesterol (E78.00) Active confirmed Problem Impingement syndrome of shoulder region (223439278) Shoulder impingement (M25.819) Active confirmed Vital Signs Blood pressure diastolic 78 mm Hg 03/01/2025 Height 66 in 03/01/2025 Blood pressure systolic 146 mm Hg 03/01/2025 Weight 173.8 lbs 03/01/2025 BMI 28.05 kg/m2 03/01/2025 Encounters Encounter Location Date Provider Diagnosis [facility] [address] [facility] [place] [address] 04/13/2025 Toi Hoy Arthritis, rheumatoi d M06.9 ; Anemia, iron deficiency D50.9 and Medication management Z79.899 [facility] [address] [place] [address] 04/13/2025 Toi parmjit [facility] [address] [place] [address] 05/16/2025 Toi parmjit [facility] [address] [place] [address] 05/23/2025 Toi Felipe [facility] [address] [place] [address] 01/24/2025 Toi Felipe [facility] [address] [place] [address] 01/26/2025 Toi parmjit [facility] [address] [place] [address] 02/04/2025 Toi parmjit [facility] [address] [place] [address] 02/10/2025 Toi Felipe [facility] [address] [place] [address] 02/16/2025 Toi Felipe [facility] [address] [place] [address] 03/01/2025 Toi [facility] [address] [place] [address] 12/19/2024 Toi Wang Wellness examination Z01.89 [facility] [address] [place] [address] 12/21/2024 Toi Wang [facility] [address] [place] [facility] [address] 12/30/2024 Toi Wang [facility] [address] [place] [address] 01/16/2025 Toi Wang Anemia, iron deficie ncy D50.9 [facility] [address] [place] [address] 01/16/2025 Toi Wang [facility] [address] [place] [address] 01/24/2025 Toi Hoy Arthritis, rheumatoi d M06.9 and Cervical radiculopathy M54.12 [facility] [address] [place] [address] 08/01/2024 Toi Palmay [facility] [address] [place] [address] 10/11/2024 Toi Hoy [facility] [address] [place] [address] 11/27/2024 Toi Hoy [facility] [address] [place] [address] 12/13/2024 Toi Hoy [facility] [address] [place] [address] 01/23/2025 Toi Hoy Cervical radiculopat hy M54.12 and Shoulder impingement M25.8[id number] [facility] [place] [address] 11/22/2024 Toi Hoy Arthritis, rheumatoi d M06.9 [id number] [facility] [place] [address] 03/01/2025 Toi Hoy Arthritis, rheumatoi d M06.[address] [place] [address] 10/11/2024 Toi Hoy Nephrolithiasis N20. 0 and Encounter for immunization Z23 Assessments Encounter Date Diagnosis (ICD Code) Assessment Notes Treatment Notes Treatment Clinical Notes Section Notes 10/11/2024 Nephrolithiasis (ICD-10 - N20.0) 11/22/2024 Arthritis, rheumatoid (ICD-10 - M06.9) 01/23/2025 Cervical radiculopathy (ICD-10 - M54.12) 01/23/2025 Shoulder impingement (ICD-10 - M25.819) 03/01/2025 Arthritis, rheumatoid (ICD-10 - M06.9) 12/19/2024 Wellness examination (ICD-10 - Z01.89) 01/16/2025 Anemia, iron deficiency (ICD-10 - D50.9) 01/24/2025 Arthritis, rheumatoid (ICD-10 - M06.9) 01/24/2025 Cervical radiculopathy (ICD-10 - M54.12) 04/13/2025 Arthritis, rheumatoid (ICD-10 - M06.9) 04/13/2025 Anemia, iron deficiency (ICD-10 - D50.9) 10/11/2024 Encounter for immunization (ICD-10 - Z23) 04/13/2025 Medication management (ICD-10 - Z79.899) Plan Of Treatment Pending Test Test Name Order Date CMP (COMPLETE METABOLIC PANEL) 3 HEMOGLOBIN A1C (GLYCO) 09/11/2023 LIPID PANEL (CHOL/TRIG/HDL/LDL) 09/11/20 23 CBC WITH DIFF 09/11/2023 PSA, PROSTATE-SPECIFIC ANTIGEN MRI Cervical Spine w/o contrast * 2024 ACUTE HEPATITIS PANEL 04/13/2025 FECAL OCCULT BLOOD 12/19/2024 CMP - Comprehensive Metabolic Panel 01/2025 CMP - Comprehensive Metabolic Panel 03/17 C DIFF PCR - C Difficile Toxin Gene BERNARDO - LC 11/02/2023 CBC W/AUTO DIFF 09/12/2023 CBC W/AUTO DIFF 01/16/2025 CBC AUTO DIFF 04/13/2025 FERRITIN 01/16/2025 FERRITIN 09/12/2023 GI PANEL (PCR) 11/02/2023 IRON 09/12/2023 IRON 01/16/2025 IRON 04/13/2025 OCC BLD IMMUNOASSAY 11/02/2023 PROTIME 11/02/2023 QUANTIFERON TB GOLD PLUS 04/13/2025 SED RATE WESTERGREN 11/02/2023 XR SHOULDER MELISSA 2V or > 01/23/2025 THYROID PANEL (T4/TSH/FREE T3) THYROID PANEL (T4/TSH/FREE T3) 3 PSA, SCREENING 12/19/2024 Insurance Providers Payer Name Payer Address Payer Phone Subscriber Number Group Number Insured Name Patient Relationship to Insured Coverage Start Date Coverage End Date [employer] [address] [place] [id number] [facility] James Mcqueen Self - patient is the insured Medications [...] M06.9 ulcerative colitis Surgical History Surgery Date(Month/Year) Colonoscopy 03/2023 Polypectomy Trans Colon 04/26/2020 right hip replacement
--- OUTSIDE RECORDS SUMMARY | 2025-06-16 08:06 | XMS_ITS | CCD ---
Author Organization [facility] Care Team Providers Care Tire Recapper Name Role Phone Rigo Gonzalez Attending Provider [phone] Jose L Lackey Primary Care Provider [phone] Jose L Lackey MD Primary Care Provider [phone] Jose L Lackey MD Primary Care Provider [phone] ZIYAD ., DR DOMINGO Primary Care Unavailable HOY ., DR DOMINGO Consulting Unavailable HOY ., DR DOMINGO Attending Unavailable HOY ., DR DOMINGO Admitting Unavailable ADDISON, DR KALEIGH Strong Consulting Unavailable HOY ., DR DOMINGO Primary Care Unavailable HOY ., DR DOMINGO Consulting Unavailable HOY ., DR DOMINGO Attending Unavailable HOY ., DR DOMINGO Admitting Unavailable HOY ., DR DOMNIGO Primary Care Unavailable HOY ., DR DOMINGO [...] Jose L Lackey MD Primary Care Provider [phone] Luis Antonio García Attending Unavaila Luis Antonio Bowden Admitting Unavaila Jose L Correa MD Primary Care Provider [phone] JR. EVERETT, BRADLY Watters Attending Unavaila karen VELIZ JR., BRADLY Watters Referring Unavaila karen VELIZ JR., BRADLY Watters Attending Unavaila karen VELIZ JR., BRADLY Watters Referring Unavaila ble Luis Antonio García Admitting Unavaila ble Luis Antonio García Attending Unavaila ble Sarmini, Salmon Talal Referring Unavaila ble Sarmini, Luis Antonio Talal Attending Unavaila ble Sarmini, Luis Antonio Talal Attending Unavaila ble Sarmini, Luis Antonio Talal Attending Unavaila ble Sarmini, Luis Antonio Talal Attending Unavaila ble Sarmini, Luis Antonio Talal Attending Unavaila ble Sarmini, Luis Antonio Talal Admitting Unavaila ble Sarmini, Luis Antonio Claudioal Attending Unavaila ble RAMÍREZMarcin R Admitting Unavailable RAMÍREZMarcin R Attending Unavailable Sarmini, Luis Antonio Claudioal Attending Unavaila ble JOSE L LACKEY M Primary Care Unavailable AL-ASHPREET LIANGUZ Referring Unavailable AL-ASHPREET LIANGUZ Attending Unavailable AL-ASHKAR, FECATERINAUZ Attending Unavailable HOY, JOSE L M Primary Care Unavailable HOY, JOSE L M Primary Care Unavailable AL-ASHGARTH FECATERINAUZ Attending Unavailable ZIYAD, JOSE L M Primary Care Unavailable AL-ASHGARTH FECATERINAUZ Referring Unavailable AMILCAR LACKEYLAS M Primary Care Unavailable AL-ASHKAR FEYROUZ Referring Unavailable RAMÍREZMarcin R Attending Unavailable HoyJose L Referring Unavailable Marcin RAMÍREZ R Attending Unavailable RAMÍREZMarcin R Admitting Unavailable SarLuis Antonio butler Attending Unavaila ble Unavailable Unavailable Unavailable Allergies Allergy Classification Reported Allergen(s) Allergy Type Date of Onset Reaction(s) Facility (6 sources) No Known Medication Allergies; Translations: [No Known Medication Allergies] Propensity to adverse reactions (disorder) [facility] Repository (6 sources) beta Sitosterol / ZINC CITRATE Drug [...] mouth once daily. CHEWABLE MULTI VITAMIN ORAL (20 sources) CHEWABLE MULTI VITAMIN ORAL Take by mouth. Active CHEWABLE MULTI V ITAMIN ORAL Take by mouth. 0 Active Comment on above: Take by mouth. cholecalciferol 0.125 mg ora l capsule (20 sources) Vitamin D Cholecalciferol, Vitamin D3, 5,000 unit cap Take 5,000 Units by mouth once daily. patient taking once daily with food Active take 1 capsule by mouth in the m orning cholecalciferol (Vitamin D-3) 125 MCG (5000 UT) capsule Take 5,000 Units by mouth in the morning. Active Comment on above: Take 5,000 Units by mouth once daily. patient taking once daily with food dicyclomine hydrochloride 10 mg oral capsule (8 sources) Anticholinergic Start: 12-17-19 End: 03-14-20 24 take 1 capsule by mouth four times daily dicyclomine (Bentyl) 10 MG capsule TAKE 1 CAPSULE BY MOUTH 4 TIMES A DAY 12/17/2022 Active Comment on above: TAKE 1 CAPSULE BY MO [facility] 4 TIMES A DAY ezetimibe 10 mg oral tablet (20 sources) Dietary Cholesterol Absorption Inhibitor take 1 tablet by mouth once daily ezetimibe (ZETIA) 10 mg tablet Take 10 mg by mouth once daily. Active Comment on above: Take 10 mg by mouth once daily. ferrous sulfate 325 mg oral tablet (9 sources) Start: 03-02-20 25 take 1 tablet by mouth twice daily ferrous sulfate 325 mg (65 mg iron) tablet 1 tablet Orally bid for 30 days 03/02/2025 Active Start: 01-06-2024 End: 03-14-2024 take 1 tablet by mouth every twelve [...] Comment on above: [facility] folic acid 1 mg oral tablet (20 sources) Start: 8 take 1 tablet by mouth once daily folic acid 1 mg tablet Take 1 mg by mouth once daily. 0 08/03/2018 Active Comment on above: Take 1 mg by mouth o nce daily. lisinopril 20 mg oral tablet (20 sources) Angiotensin Converting Enzyme Inhibitor take 1 tablet by mouth once daily lisinopril (ZESTRIL, PRINIVIL) 20 mg tablet Take 20 mg by mouth once daily. Active Comment on above: Take 20 mg by mouth once daily. methotrexate 2.5 mg oral tablet (4 sources) Folate Analog Metabolic Inhibitor take 4 tablets by mouth every week methotrexate 2.5 mg tablet TAKE 4 TABLETS BY MOUTH WEEKLY Active methotrexate 2.5 MG tablet Take by mouth. Follow directions carefully, and ask to explain any part you do not understand. Take exactly as directed. Active Multiple Vitamins-Minerals (CENTRUM ADULTS PO) (6 sources) Multiple Vitamins-Minerals (CENTRUM ADULTS PO) Orally Active omeprazole 40 mg delayed release oral capsule (20 sources) Proton Pump Inhibitor take 1 capsule by mouth once daily Omeprazole 40 mg capsule Take 40 mg by mouth once daily. Active Comment on above: Take 40 mg by mouth once daily. potassium chloride 10 meq extended release oral capsule (2 sources) Start: 2024 take 1 tablet by mouth twice daily at mealtime potassium chloride SR (MICRO-K) 10 mEq CR capsule 1 tablet with food Orally Twice Daily for 30 days 05/17/2025 Active sulfaSALAzine 500 mg delayed release oral tablet (20 sources) Aminosalicylate Start: 2022 take 2 tablets by mouth four times daily sulfaSALAzine EC (AZULFIDINE EN) 500 mg EC tablet TAKE 2 TABLETS BY MOUTH 4 TIMES A DAY 11/03/2023 Active SULFASALAZINE OR AL Take by mouth. takes 8 pills a days, divided three times daily (3 in am, 3 noon, 2 pm), per marquetry worker 0 Active Comment on above: Take by mouth. takes 8 pills a days, divided three times daily (3 in am, 3 noon, 2 pm), per marquetry worker TAKE 2 TABLETS BY MO UTH 4 TIMES A DAY tiZANidine 4 mg oral tablet (7 sources) Central alpha-2 Adrenergic Agonist tiZANidine (ZANAFLEX ) 4 mg tablet Take 8 mg by mouth daily at bedtime. Active End: 05-03-2025 take 1 capsule by mouth in the morning, then take 1 capsule by mouth in the evening, then take 1 capsule by mouth at bedtime tiZANidine (Zanaflex) 4 MG capsule Take 4 mg by mouth in the morning and 4 mg in the evening and 4 mg before bedtime. 05/03/2025 Discontinued Turmeric extract (5 sources) Turmeric 400 MG capsule Take by mouth Active vedolizumab 300 mg injection (17 sources) Integrin Receptor Antagonist Start: 11-11-2023 End: 05-09-2024 ENTYVIO 300 mg injection as directed every 8 wks 0 11/11/2023 05/09/2024 Discontinued (Discontinued by Patient) Start: 05-27-2023 ENTYVIO 300 mg injection 08/11/2024 Active Comment on above: as directed every 8 wks Completed/Discontinued Medications Medication Drug Class(es) Dates Sig (Normalized) Sig (Original) 0.4 ml adalimumab 100 mg/ml auto-injector (6 sources) Tumor Necrosis Factor Marita Start: 1 End: 3 HUMIRA,CF, PEN 40 mg/0.4 mL pen kit Inject 40 mg subcutaneously every 2 weeks. Prescribed by [facility] : Nel Lebron MD Previously prescr. by Ronald Brown MD 0 02/18/2021 05/04/2023 Discontinued Comment on above: Inject 40 mg subcuta neously every 2 weeks. Prescribed by [facility] : Nel Lebron MD Previously prescr. by [...] mL subcut aneously two times a week. meloxicam 15 mg oral tablet (2 sources) Nonsteroidal Anti-inflammatory Drug End: 5 take 1 tablet by mouth once daily meloxicam (MOBIC) 15 mg tablet Take 15 mg by mouth once daily. 06/06/2025 Discontinued (Discontinued by Patient) mesalamine 66.7 mg/ml enema (15 sources) Aminosalicylate Start: 2 End: 4 mesalamine [...] above: PLEASE SEE ATTACHED FOR DETAILED DIRECTIONS traMADol hydrochloride 50 mg oral tablet (2 sources) Opioid Agonist End: 5 take 1 tablet by mouth every six hours as needed traMADol (ULTRAM) 50 mg tablet Take 50 mg by mouth every 6 hours as needed for pain. 06/06/2025 Discontinued (Discontinued by Patient) turmeric root extract 500 mg cap (11 sources) End: 5 take 1 tablet by mouth three times daily turmeric root extract 500 mg cap Take 500 mg by mouth once daily. Take one(1) tablet three times daily. 06/06/2025 Discontinued (Discontinued by Patient) take 1 tablet by mouth three belkys es daily turmeric root extract 500 mg cap Take 500 mg by mouth once daily. Take one(1) tablet three times daily. Active take 1 tablet by mouth three belyks es daily turmeric root extract 500 mg cap Take 500 mg by mouth once daily. Take one(1) tablet three times daily. 0 Active take 1 tablet by mouth three belkys es daily turmeric root extract 500 mg cap Take by mouth. Take one(1) tablet three times daily. 0 Active Comment on above: Take by mouth. Take one(1) tablet three times daily. 100 ml zoledronic acid 0.05 mg/ml injection (1 source) Bisphosphonate Start: 05-09-2024 End: 05-09-2024 zoledronic acid 5 mg PREMIX piggyback (RECLAST) Problems Active Problems Problem Classification Problem Date Documented Date Episodic/Chronic Acquired foot deformities (1 source) Talipes planus; Translations: [Flat foot [pes planus] (acquired), unspecified foot] 02-20-2021 Episodic Administrative/social admission (8 sources) Follow-up status; Translations: [Person consulting for explanation of examination or test findings] Episodic Immunizations and screening for infectious disease (1 source) Other specified abnormal immunological findings in serum; Translations: [Other and unspecified nonspecific immunological findings] Episodic Nutritional deficiencies (20 sources) Vitamin D deficiency; Translations: [Vitamin D deficiency, unspecified] Onset: 10-05-2015 10-05-2015 Chronic Osteoarthritis (20 sources) Degenerative joint disease involving multiple joints; [...] 02-07-2016 02-07-2016 Episodic Other aftercare (2 sources) Other emt/dispatcher (current) drug therapy; Translations: [OTH RESIDENTIAL CURRENT DRUG THERAPY] Onset: 09-26-2022 Episodic Other aftercare (5 sources) Drug therapy finding; Translations: [Other emt/dispatcher (current) drug therapy] Episodic Other bone disease and musculoskeletal deformities (1 source) Disorder of bone; Translations: [Other specified disorders of bone density and structure, unspecified site] 09-23-2022 Episodic Other bone disease and musculoskeletal deformities (1 source) Osteopenia; Translations: [Other specified disorders of bone density and structure, multiple sites] 06-06-2025 Episodic Other bone disease and musculoskeletal deformities (1 source) Other specified disorders of bone density and structure, multiple sites; Translations: [Osteopenia of multiple sites] Onset: 06-06-2025 Episodic Other connective tissue disease (6 sources) History of total knee arthroplasty; Translations: [Presence of unspecified artificial knee joint] Onset: 03-19-2023 03-19-2023 Chronic Other connective tissue disease (8 sources) History of total replacement of right hip joint; Translations: [Presence of right artificial hip joint] Onset: 03-19-2023 03-19-2023 Chronic Other connective tissue disease (2 sources) History of left total knee replacement; Translations: [Presence of left artificial knee joint] 05-03-2025 Chronic Other connective tissue disease (2 sources) History of right total knee replacement; Translations: [Presence of right artificial knee joint] 05-03-2025 Chronic Other connective tissue disease (1 source) History of osteoporosis; Translations: [Personal history of other diseases of the musculoskeletal system and connective tissue] 06-06-2025 Episodic Other connective tissue disease (1 source) Personal history of other diseases of the musculoskeletal system and connective tissue; Translations: [History of osteoporosis] Onset: 06-06-2025 Episodic Other ear and sense organ disorders (6 sources) Chronic otitis externa; Translations: [Other otitis externa, right ear] Onset: 03-19-2023 03-19-2023 Chronic Other ear and sense organ disorders (6 sources) Sensorineural hearing loss, bilateral; Translations: [Sensorineural [...] Translations: [Pain in right hip] 03-31-2025 Episodic Other non-traumatic joint disorders (4 sources) Pain in right knee; Translations: [Pain in joint, lower leg] 05-04-2025 Episodic Regional enteritis and ulcerative colitis (20 sources) Ulcerative pancolitis; Translations: [Ulcerative (chronic) pancolitis without complications] Onset: 02-05-2017 02-05-2017 Chronic Residual codes; unclassified (2 sources) At risk for injury; Translations: [Other specified personal risk factors, not elsewhere classified] 08-22-2020 Episodic Residual codes; unclassified (4 sources) History of drug therapy; Translations: [Personal history of other drug therapy] 10-05-2024 Episodic Residual codes; unclassified (1 source) Personal history of other drug therapy; Translations: [History of bisphosphonate therapy] Onset: 06-06-2025 Episodic Rheumatoid arthritis and related disease (20 [...] [CONTACT W/AND (SUSP) EXPOS COVID-19] Onset: 09-26-2022 Unclassified (1 source) On methotrexate therapy; Translations: [On methotrexate therapy] Onset: 06-06-2025 Past or Other Problems Problem Classification Problem Date Documented Da te Episodic/Chronic Other aftercare (11 sources) Long-term current use of drug therapy; [...] Test Name Value Interpretation Reference Range Facility BD DXA - AXIAL SKELETONon BD DXA - AXIAL SKELETON * * *Final Report* * * DATE OF EXAM: Jun 06 2025 8:13AM LNB 0804 - BD DXA - AXIAL SKELETON / PROCEDURE REASON: multiple diagnoses * * * * Physician Interpretation * * * * EXAMINATION: DXA BONE DENSITOMETRY BD DXA - AXIAL SKELETON, BD DXA TRABECULAR BONE SCORE (TBS) PATIENT DEMOGRAPHICS: Age: 60 years, Gender: Male SCANNER INFORMATION: DXA Model: Power Efficiency [id number] Date Scanned: 06/06/2025 8:13 AM CLINICAL HISTORY: [...] Degraded : partially degraded (1.231 - 1.310) IMPRESSION: THE LOWEST T-SCORE IS -2.1 IN [...] FOR MORE INFORMATION ABOUT DIAGNOSIS AND TREATMENT: [facility] for Osteoporosis and Metabolic Bone Disease:? www.ccf.org/arthritis/osteo National Osteoporosis Foundation:? www.nof.org International Society of Clinical Densitometry www.iscd.org [employer] Solutions Architect: [id number] Transcribe Date/Time: Jun 06 2025 8:19A Dictated by : DARRIAN DUBON MD This examination was interpreted and the report reviewed and electronically signed by: DARRIAN DUBON MD on Jun 12 2025 5:22PM EST [id number] -2.1 Normal [facility] BD DXA TRABECLR BONE SCORE ( TBS)on 06-06-2025 BD DXA TRABECLR BONE SCORE (TBS) * * *Final Report* * * DATE OF EXAM: Jun 06 2025 8:13AM LNB 0801 - BD DXA TRABECLR BONE SCORE (TBS) / PROCEDURE REASON: multiple diagnoses * * * * Physician Interpretation * * * * EXAMINATION: DXA BONE DENSITOMETRY BD DXA - AXIAL SKELETON, BD DXA TRABECULAR BONE SCORE (TBS) PATIENT DEMOGRAPHICS: Age: 60 years, Gender: Male SCANNER INFORMATION: DXA Model: Power Efficiency [id number] Date Scanned: 06/06/2025 8:13 AM CLINICAL HISTORY: [...] Degraded : partially degraded (1.231 - 1.310) IMPRESSION: THE LOWEST T-SCORE IS -2.1 IN [...] FOR MORE INFORMATION ABOUT DIAGNOSIS AND TREATMENT: [facility] for Osteoporosis and Metabolic Bone Disease:? www.ccf.org/arthritis/osteo National Osteoporosis Foundation:? www.nof.org International Society of Clinical Densitometry www.iscd.org Oracle Solutions Architect: [id number] Transcribe Date/Time: Jun 06 2025 8:19A Dictated by : DARRIAN DUBON MD This examination was interpreted and the report reviewed and electronically signed by: DARRIAN DUBON MD on Jun 12 2025 5:22PM EST [id number] -2.1 Normal [facility] CNOVon 06-06-2025 CNOV Office Visit (RHEULN ) JAM TOSCANO ([id number]) 1965 M Date Time Provider Department 06/06/25 8:20 AM DARRIAN DUBON During your visit today, we recorded the following information about you: Pulse Blood pressure Weight 66/minute 124/62 75.3 kg Darrian Dubon MD 06/07/2025 3:19 PM Signed FOLLOW UP VISIT Patient's Name: Jam Erwin [place] [id number] PCP: Jose L Lackey MD [address] [place] [phone] Consult Requested by: Jose L Lackey MD [address] [place] [id number] Other physicians: [facility] prev. Nel Lebron MD (his prev. marquetry worker left- Ronald Brown MD) ; Now following with Dr. Luis Antonio García Accompanied by: self Interim history: is here for f/u RA and OP Recording using ambient [employer] software for draft documentation of the visit was discussed with the patient/authorized dental detail representative; all questions welcomed and answered. Patient/authorized dental detail representative agreed to proceed Reports doing fine today, but this would be his last apt. 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 He has also been seeking local reacher closer to home for him. This is a long drive for him to come here. Regarding the reported RA flare: I asked him to provide me with additional information, he was unable to provide exact dates and details, but reported that his RA flared, at the time everything hurt so bad , middle of my back the [...] He is still undergoing evaluation by his marquetry worker for his IBD disease activity. He has been on Entyvio. States he has gastrointestinal evaluation by his marquetry worker and states - Undergoing capsule endoscopy tomorrow to evaluate small intestine for potential tumors or bleeding. - Recent colonoscopy showed small benign tumors. States told his tumors were benign But still needs the camera States because he is bleeding and requiring His PCP and [facility] are addressing his anemia and further evaluating He had iron infusion 05/26/2025 States he is on potassium and iron infusion by his Primary care physician States his Primary care physician started him on 4 tbs/wk and is comfortable with that He continues on the sulfasalazine, and states his marquetry worker prescribes it, as well as the Entyvio. [...] BRBPR and denies melena. He follows with Gastroenter (more content not included)... Normal [facility] Reminderson 06-06-2025 Reminders Reminders From: Tamiko Garcia I To: [facility] - Reminders/Recalls; Sent: 06/06/2025 07:53:34 EDT Show up: 03/16/2026 07:53:00 EDT Subject: Colonoscopy recall Due Date/Time: 05/11/2026 07:53:00 EDT Reminder/Recall 1 year colon recall - UC Dr. García 05/11/25 Normal [facility] Gastroenterology Office/Clin ic Noteon 05-24-2025 Gastroenterology Office/Clinic Note Gastroenterology Office/Clinic Note Chief Complaint follow up to egd/colonoscopy HPI Staff Established patient is a(n) 60 year old male who presents today for a follow up to EGD & Colonoscopy on 05/11/25. Colon recall needs placed. GI complaints: No. Continues Entyvio subq. serviced through [facility]. Any blood thinners? no Any GLP-1 agonists? no Laboratory Results CBC CMP Basophil Absolute: 0 E9/L (12/14/24) A/G Ratio: 1.5 (12/14/24) Basophil Auto: 0.5 % (12/14/24) AGAP: 9 mEq/L (12/14/24) Eos Absolute: 0 E9/L (12/14/24) Albumin Lvl: 4.1 gm/dL (12/14/24) Eos Auto: 0 % (12/14/24) Alk Phos: 88 Int._Unit/L (12/14/24) Hct: 36.2 % Low (12/14/24) ALT: 27 Int._Unit/L (12/14/24) HGB: 12.6 gm/dL Low (12/14/24) AST: 29 Int._Unit/L (12/14/24) Lymph Absolute: 1.6 E9/L (12/14/24) Bili Total: 0.4 mg/dL (12/14/24) Lymph Auto: 24.8 % (12/14/24) BUN: 16 mg/dL (12/14/24) MCH: 31.7 pg (12/14/24) BUN/Creat Ratio: 20 (12/14/24) MCHC: 34.9 gm/dL (12/14/24) Calcium Lvl: 9.1 mg/dL (12/14/24) MCV: 90.8 fL (12/14/24) Chloride: 108 mmol/L (12/14/24) [place] Absolute: 0.5 E9/L (12/14/24) CO2: 27 mmol/L (12/14/24) [place] Auto: 7.5 % (12/14/24) Creatinine: 0.8 mg/dL (12/14/24) MPV: 6.9 fL (12/14/24) Globulin: 2.8 gm/dL (12/14/24) Neutro Absolute: 4.4 E9/L (12/14/24) Glucose Lvl: 94 mg/dL (12/14/24) Neutro Auto: 67.2 % (12/14/24) Potassium Lvl: 4.7 mmol/L (12/14/24) Platelet: 261 E9/L (12/14/24) Sodium Lvl: 139 mmol/L (12/14/24) RBC: 4 E12/L Low (12/14/24) Total Protein: 6.9 gm/dL (12/14/24) RDW: 15.6 % High (12/14/24) WBC: 6.6 E9/L (12/14/24) Liver Studies AMA Ab Scr: <20.0 (12/14/24) Hep Bs Ag: Negative (12/14/24) TB: Negative (12/14/24) History of Present Illness Reviewed HPI collected by staff Review of Systems PHQ Score Initial Depression Screen Score: 0 SCORE All systems reviewed, negative; Except for above Physical Exam Vitals & Measurements HR: 92(Peripheral) RR: 16 BP: 116/81 HT: 166 cm HT: 65 in WT: 363.762 lb WT: 165 kg BMI: 59.88 No acute distress Procedure EGD: Impression and Plan 1. Esophageal landmarks identified, slight decreased motility through the esophagus based on endoscopic exam, nonspecific. Otherwise normal examined esophagus 2. Moderate patchy erythema in the antrum of the stomach with couple small erosions, otherwise normal examined stomach. Random biopsies were taken for histology and H. pylori 3. Normal examined duodenum Colonoscopy: Impression and Plan 1. Small internal hemorrhoids 2. Mild edematous mucosa in the rectum, rectosigmoid area between 20 and 30 cm 3. 5 mm polyp highly suspicious for inflammatory polyp, resected with cold snare completely and retrieved. 1 clip was placed to prevent delayed bleeding 4. Otherwise normal colonic mucosa, Morales score 0. Dysplasia surveillance was done using white light, TXA mode and NBI mode. In addition, biopsies were taken every 10 cm from right colon, transverse colon, left colon, rectosigmoid colon and rectum to rule out dysplasia and assess for colitis 5. Normal examined terminal ileum Recommendations: Repeat colonoscopy:: In 1 year, Based on path Pathology: Final Diagnosis ( Modified ) A: STOMACH, BIOPSY: ??? Antral-type mucosa with minimal reactive gastropathy ??? No intestinal metaplasia identified. ??? No H. pylori microorganisms identified with immunostain. B: RIGHT COLON, BIOPSY: ??? Colonic mucosa with no pathologic changes C: TRANSVERSE COLON, BIOPSY: ??? Colonic mucosa with no pathologic changes D: LEFT COLON, BIOPSY: ??? Colonic mucosa with no pathologic changes E: RECTAL COLON, BIOPSY: ??? TUBULAR ADENOMA WITH LAMINA PROPRIA FIBROSIS F: POLYP, DESCENDING COLON, POLYPECTOMY: ???Polypoid colonic mucosa with no pathologic changes G: RECTOSIGMOID COLON, BIOPSY: ???TUBULAR ADENOMA WITH LAMINA PROPRIA FIBROSIS H: POLYP, SIGMOID COLON, POLYPECTOMY: ??? Hyperplastic polyp Assessment/Plan 1. Ulcerative colitis, universal (K51.00: Ulcerative (chronic) pancolitis without complications) Severe ulcerative colitis , dx 03/2015, started on sulfasalazine. He was initially started on mesalamine and then switched to sulfasalazine. added Humira in 2017, increased his Humira, did not improve Started Entyvio: 03/2023: q8 weeks since then he is in full remission, switch to Entyvio subcutaneous recently, doing well Had colonoscopy 02/2024 had polyps, TV and TA's Repeat colonoscopy with Dr. Jaquez May 2024 showed no tubular adenomas just [...] next colonoscopy, he prefers to stay at [facility] (more content not included)... Normal [facility] Comment on above: Result Comment: Elec tronically Signed By: Jeannine Santizo MA\.br\Date and Time Signed: 05/22/25 09:02 EDT\.br\Electronically Co-Signed By: Ricky ROBLERO, Luis Antonio Tiwari\.br\Date and Time Co-Signed: 05/24/25 14:37 EDT [facility] 25-hydroxyvitamin D3 [Mass/Vol] 60.0 ng/mL Normal 31.0-80.0 [facility] Comment on above: Order Comment: Speci men Type: BLOOD SPECIMEN Ordering Facility: [facility] Address: [address] [place] [address] Performed By: #### 1 989-3 #### [facility] CLIA [id number] [address] [place] [address] [place] [address] [place] CBC W Auto Differential pane l (Bld)on 05-23-2025 Basophils (Bld) [#/Vol] 0.03 10*3/uL Normal <0.11 [facility] Comment on above: Order Comment: Speci men Type: BLOOD SPECIMEN Ordering Facility: [facility] Address: [address] [place] [address] Performed By: #### 5 7021-8 #### [facility] CLIA [id number] [address] [place] [address] 91749 Basophils/100 WBC (Bld) 0.4 % Normal [facility] Comment on above: Order Comment: Speci men Type: BLOOD SPECIMEN Ordering Facility: [facility] Address: [address] [place] [address] Performed By: #### 5 7021-8 #### [facility] CLIA [id number] [address] [place] [address] 87519 Differential cell count method Nom (Bld) Auto Normal [facility] Comment on above: Order Comment: Speci men Type: BLOOD SPECIMEN Ordering Facility: [facility] Address: [address] [place] [address] Performed By: #### 5 7021-8 #### [facility] CLIA [id number] [address] [place] [address] 99980 Eosinophils (Bld) [#/Vol] 10*3/uL Normal <0.46 [facility] Comment on above: Order Comment: Speci men Type: BLOOD SPECIMEN Ordering Facility: [facility] Address: [address] [place] [address] Performed By: #### 5 7021-8 #### [facility] CLIA [id number] [address] [place] [address] 06706 Eosinophils/100 WBC (Bld) 0.0 % Normal [facility] Comment on above: Order Comment: Speci men Type: BLOOD SPECIMEN Ordering Facility: [facility] Address: [address] [place] [address] Performed By: #### 5 7021-8 #### [facility] CLIA [id number] [address] [place] [address]15 Erythrocyte distribution width (RBC) [Ratio] 15.0 % Normal 11.5-15.0 [facility] Comment on above: Order Comment: Speci men Type: BLOOD SPECIMEN Ordering Facility: [facility] Address: [address] [place] [address] Performed By: #### 5 7021-8 #### [facility] CLIA [id number] [address] [place] [address] 36020 Hematocrit (Bld) [Volume fraction] 35.9 % Low 39.0-51.0 [facility] Comment on above: Order Comment: Speci men Type: BLOOD SPECIMEN Ordering Facility: [facility] Address: [address] [place] [address] Performed By: #### 5 7021-8 #### [facility] CLIA [id number] [address] [place] [address] 77106 Hemoglobin (Bld) [Mass/Vol] 11.6 g/dL Low 13.0-17.0 [facility] Comment on above: Order Comment: Speci men Type: BLOOD SPECIMEN Ordering Facility: [facility] Address: [address] [place] [address] Performed By: #### 5 7021-8 #### [facility] CLIA [id number] [address] [place] [address] 27311 Immature granulocytes (Bld) [#/Vol] 10*3/uL Normal <0.10 [facility] Comment on above: Order Comment: Speci men Type: BLOOD SPECIMEN Ordering Facility: [facility] Address: [address] [place] [address] Performed By: #### 5 7021-8 #### [facility] CLIA [id number] [address] [place] [address] 37194 Immature granulocytes/100 WBC (Bld) 0.1 % Normal [facility] Comment on above: Order Comment: Speci men Type: BLOOD SPECIMEN Ordering Facility: [facility] Address: [address] [place] [address] Performed By: #### 5 7021-8 #### [facility] CLIA [id number] [address] [place] [address] 27530 Lymphocytes (Bld) [#/Vol] 1.69 10*3/uL Normal 1.00-4.00 [facility] Comment on above: Order Comment: Speci men Type: BLOOD SPECIMEN Ordering Facility: [facility] Address: [address] [place] [address] Performed By: #### 5 7021-8 #### [facility] CLIA [id number] [address] [place] [address] 03422 Lymphocytes/100 WBC (Bld) 21.2 % Normal [facility] Comment on above: Order Comment: Speci men Type: BLOOD SPECIMEN Ordering Facility: [facility] Address: [address] [place] [address] Performed By: #### 5 7021-8 #### [facility] CLIA [id number] [address] [place] [address] 35248 MCH (RBC) [Entitic mass] 30.1 pg Normal 26.0-34.0 [facility] Comment on above: Order Comment: Speci men Type: BLOOD SPECIMEN Ordering Facility: [facility] Address: [address] [place] [address] Performed By: #### 5 7021-8 #### [facility] CLIA [id number] [address] [place] [address] 91389 MCHC (RBC) [Mass/Vol] 32.3 g/dL Normal 30.5-36.0 [facility] Comment on above: Order Comment: Speci men Type: BLOOD SPECIMEN Ordering Facility: [facility] Address: [address] [place] [address] Performed By: #### 5 7021-8 #### [facility] CLIA [id number] [address] [place] [address] 94793 MCV (RBC) [Entitic vol] 93.0 fL Normal 80.0-100.0 [facility] Comment on above: Order Comment: Speci men Type: BLOOD SPECIMEN Ordering Facility: [facility] Address: [address] [place] [address] Performed By: #### 5 7021-8 #### [facility] CLIA [id number] [address] [place] [address] 73614 Monocytes (Bld) [#/Vol] 0.73 10*3/uL Normal <0.87 [facility] Comment on above: Order Comment: Speci men Type: BLOOD SPECIMEN Ordering Facility: [facility] Address: [address] [place] [address] Performed By: #### 5 7021-8 #### [facility] CLIA [id number] [address] [place] [address] 16349 Monocytes/100 WBC (Bld) 9.2 % Normal [facility] Comment on above: Order Comment: Speci men Type: BLOOD SPECIMEN Ordering Facility: [facility] Address: [address] [place] [address] Performed By: #### 5 7021-8 #### [facility] CLIA [id number] [address] [place] [address] 54087 Neutrophils (Bld) [#/Vol] 5.50 10*3/uL Normal 1.45-7.50 [facility] Comment on above: Order Comment: Speci men Type: BLOOD SPECIMEN Ordering Facility: [facility] Address: [address] [place] [address] Performed By: #### 5 7021-8 #### [facility] CLIA [id number] [address] [place] [address] 78681 Neutrophils/100 WBC (Bld) 69.1 % Normal [facility] Comment on above: Order Comment: Speci men Type: BLOOD SPECIMEN Ordering Facility: [facility] Address: [address] [place] [address] Performed By: #### 5 7021-8 #### [facility] CLIA [id number] [address] [place] [address] 95421 Nucleated RBC (Bld) [#/Vol] 10*3/uL Normal <0.01 [facility] Comment on above: Order Comment: Speci men Type: BLOOD SPECIMEN Ordering Facility: [facility] Address: [address] [place] [address] Performed By: #### 5 7021-8 #### [facility] CLIA [id number] [address] [place] [address] 19977 Nucleated RBC/100 WBC (Bld) [Ratio] 0.0 /100 WBC Normal [facility] Comment on above: Order Comment: Speci men Type: BLOOD SPECIMEN Ordering Facility: [facility] Address: [address] [place] [address] Performed By: #### 5 7021-8 #### [facility] CLIA [id number] [address] [place] [address] 10172 Platelet mean volume (Bld) [Entitic vol] 8.4 fL Low 9.0-12.7 [facility] Comment on above: Order Comment: Speci men Type: BLOOD SPECIMEN Ordering Facility: [facility] Address: [address] [place] [address] Performed By: #### 5 7021-8 #### [facility] CLIA [id number] [address] [place] [address] 26621 Platelets (Bld) [#/Vol] 337 10*3/uL Normal 150-400 [facility] Comment on above: Order Comment: Speci men Type: BLOOD SPECIMEN Ordering Facility: [facility] Address: [address] [place] [address] Performed By: #### 5 7021-8 #### [facility] CLIA [id number] [address] [place] [address] 90392 RBC (Bld) [#/Vol] 3.86 10*6/uL Low 4.20-6.00 [facility] Comment on above: Order Comment: Speci men Type: BLOOD SPECIMEN Ordering Facility: [facility] Address: [address] [place] [address] 29753 Performed By: #### 5 7021-8 #### [facility] CLIA [id number] [address] [place] [address] WBC (Bld) [#/Vol] 7.96 10*3/uL Normal 3.70-11.00 [facility] Comment on above: Order Comment: Speci men Type: BLOOD SPECIMEN Ordering Facility: [facility] Address: [address] [place] [address] Performed By: #### 5 7021-8 #### [facility] CLIA [id number] [address] [place] [address] 73398 CRP SerPl-mCncon 05-23-2025 CRP [Mass/Vol] 3.5 mg/dL High <0.9 [facility] Comment on above: Order Comment: Speci men Type: BLOOD SPECIMEN Ordering Facility: [facility] Address: [address] [place] [address] Performed By: #### 2 4362-6 #### [facility] CLIA [id number] [address] [place] [address] 32844 Collagen crosslinked C-telop eptide [Mass/Vol]on 05-23-2025 C TELOPEPTIDE, BETA CROSS LINKED 374 pg/mL Normal 132-752 [facility] Comment on above: Order Comment: Speci men Type: BLOOD SPECIMEN Ordering Facility: [facility] Address: [address] [place] [address] Performed By: #### 4 1171-0 #### [facility] CLIA [id number] [address] [place], [place] [address] [place] Renal function 2000 panelon 05-23-2025 Albumin [Mass/Vol] 4.0 g/dL Normal 3.9-4.9 [facility] Comment on above: Order Comment: Speci men Type: BLOOD SPECIMEN Ordering Facility: [facility] Address: [address] [place] [address] Performed By: #### 2 4362-6 #### [facility] CLIA [id number] [address] [place] [address] Anion gap [Moles/Vol] 12 mmol/L Normal 8-15 [facility] Comment on above: Order Comment: Speci men Type: BLOOD SPECIMEN Ordering Facility: [facility] Address: [address] [place] [address] Performed By: #### 2 4362-6 #### [facility] CLIA [id number] [address] [place] [address] Calcium [Mass/Vol] 9.5 mg/dL Normal 8.5-10.2 [facility] Comment on above: Order Comment: Speci men Type: BLOOD SPECIMEN Ordering Facility: [facility] Address: [address] [place] [address] Performed By: #### 2 4362-6 #### [facility] CLIA [id number] [address] [place] [address] Chloride [Moles/Vol] 105 mmol/L Normal 98-107 [facility] Comment on above: Order Comment: Speci men Type: BLOOD SPECIMEN Ordering Facility: [facility] Address: [address] [place] [address] Performed By: #### 2 4362-6 #### [facility] CLIA [id number] [address] [place] [address] 15819 CO2 [Moles/Vol] 23 mmol/L Normal 22-30 [facility] Comment on above: Order Comment: Speci men Type: BLOOD SPECIMEN Ordering Facility: [facility] Address: [address] [place] [address] Performed By: #### 2 4362-6 #### [facility] CLIA [id number] [address] [place] [address] Creatinine [Mass/Vol] 0.73 mg/dL Normal 0.73-1.22 [facility] Comment on above: Order Comment: Speci men Type: BLOOD SPECIMEN Ordering Facility: [facility] Address: [address] [place] [address] Performed By: #### 2 4362-6 #### [facility] CLIA [id number] [address] [place] [address] 27791 Creatinine and Glomerular filtration rate.predicted panel (S/P/Bld) 104 mL/min/1.73m??? Normal >=60 [facility] Comment on above: Order Comment: Speci emerita Type: BLOOD SPECIMEN Ordering Facility: [facility] Address: [address] [place] [address] Result Comment: Fauzia mated Glomerular Filtration Rate [...] reflect actual GFR. Performed By: #### 2 4362-6 #### [facility] CLIA [id number] [address] [place] [address] 14076 Glucose [Mass/Vol] 135 mg/dL High 74-99 [facility] Comment on above: Order Comment: Quinn felder Type: BLOOD SPECIMEN Ordering Facility: [facility] Address: [address] [place] [address] Result Comment: The [place] Diabetes Association (ADA) provides guidance for cutoff [...] Standards of Medical Care in Diabetes 2016, [place] Diabetes Association. Diabetes Care. 2016.39(Suppl 1). Performed By: #### 2 4362-6 #### [facility] CLIA [id number] [address] [place] [address] 79643 Phosphate [Mass/Vol] 2.3 mg/dL Low 2.7-4.8 [facility] Comment on above: Order Comment: Speci men Type: BLOOD SPECIMEN Ordering Facility: [facility] Address: [address] [place], [place] [address] Performed By: #### 2 4362-6 #### [facility] CLIA [id number] [address] [place] [address] Potassium [Moles/Vol] 4.2 mmol/L Normal 3.7-5.1 [facility] Comment on above: Order Comment: Speci men Type: BLOOD SPECIMEN Ordering Facility: [facility] Address: [address] [place] [address] Performed By: #### 2 4362-6 #### [facility] CLIA [id number] [address] [place] [address] Sodium [Moles/Vol] 140 mmol/L Normal 136-144 [facility] Comment on above: Order Comment: Speci men Type: BLOOD SPECIMEN Ordering Facility: [facility] Address: [address] [place] [address] Performed By: #### 2 4362-6 #### [facility] CLIA [id number] [address] [place] [address] Urea nitrogen [Mass/Vol] 17 mg/dL Normal 9-24 [facility] Comment on above: Order Comment: Speci men Type: BLOOD SPECIMEN Ordering Facility: [facility] Address: [address] [place] [address] Performed By: #### 2 4362-6 #### [facility] CLIA [id number] [address] [place] [address] Ambulatory Visit Summaryon 0 05-22-2025 Ambulatory Visit Summary Ambulatory Visit Summary JAM TOSCANO :1965 Visit Date:05/22/2025 Ambulatory Visit Instructions Your Diagnosis Ulcerative colitis, universal History of colon polyps Elevated alkaline phosphatase level Anemia GUANAKITO (iron deficiency anemia) Your Care Team Attending Physician - Ricky ROBLERO, Luis Antonio Tiwari Primary Care Physician - Jose L Lackey MD This Is Your Medications List Contact prescribing physician if questions or concerns Misc Prescription (Potassium 10 MEQ capsule) atorvastatin (atorvastatin 20 mg Tab) cholecalciferol (cholecalciferol 5000 intl units oral capsule) ezetimibe (Zetia 10 mg Tab) ferrous sulfate (ferrous sulfate 325 mg oral enteric coated tablet) folic acid (folic acid 1 mg Tab) lisinopril meloxicam (meloxicam 15 mg Tab) methotrexate (methotrexate 2.5 mg Tab) multivitamin with minerals (Multivitamins and Minerals) omeprazole (omeprazole 40 mg Cap-DR) sulfasalazine vedolizumab (Entyvio Pen 108 mg/0.68 mL subcutaneous solution) Procedures Performed Colonoscopy (05/11/2025), Esophagogastroduodenoscopy (05/11/2025), Colonoscopy (06/03/2024), Esophagogastroduodenoscopy (06/03/2024), Colonoscopy (02/26/2024), Colonoscopy (03/23/2023), Cystoscopy (02/04/2021), Colonoscopy, Procedure on hip, Procedure on knee. Discharge Vitals Heart Rate (Peripheral) 92 Respiratory Rate 16 Blood Pressure 116/81 Height 166 cm Height 65 in Weight 165 kg Weight 363.762 lb BMI 59.88 What to do next You Need to Schedule the Following Appointments Follow Up with Ricky ROBLERO, Luis Antonio Tiwari, [facility], [facility] When: In 3 months Where: [address] [place] [address], [address] [phone] Medications What How Much When Instructions Unchanged [...] prescribing physician if questions or concerns Unchanged ferrous sulfate (ferrous sulfate 325 mg oral enteric coated tablet) By Mouth 2 times a day Contact prescribing physician if questions or concerns Unchanged folic acid (folic acid 1 mg Tab) 1 Tablets By Mouth Every day Contact prescribing physician if questions or concerns Unchanged lisinopril 10 Milligram By Mouth Every day Contact prescribing physician if questions or concerns Unchanged meloxicam (meloxicam 15 mg Tab) By Mouth Every day Contact prescribing physician if questions or concerns Unchanged methotrexate (methotrexate 2.5 mg Tab) 4 Tablets By Mouth Every 7 days Contact prescribing physician if questions or concerns Unchanged Misc Prescription (Potassium 10 MEQ capsule) 0 Contact prescribing physician if questions or concerns [...] mg/ 0.68 mL subcutaneous solution) 108 Milligram Subcutaneous Every other week Contact prescribing physician if questions or concerns [...] polyps Hyperlipemia Incomplete bladder emptying Kidney stones Morbid obesity with BMI of 50.0-59.9, adult Multiple renal cysts Prostate calculus Pyuria Rectal bleed Screening PSA (prostate specific antigen) Ulcerative colitis, universal Vardaman ulcerative colitis Ureteral stone with hydronephrosis Urethral stone Historical - Any problem that you are no longer receiving treatment for. Extreme obesity Ulcerative colitis Patient Survey You may receive a survey via text or e-mail asking about your office visit. Please share your experience with us by completing your survey. We appreciate your feedback and thank you for choosing us for your care. Patient Portal You may access all of your results and other medical record information on our secure patient portal. If you are not signed up for this yet, please contact [employer] at [phone] to get signed up today. Language Information Language assist (more content not included)... Normal [facility] Surgical Pathology Reporton 05-16-2025 Surgical Pathology Report [facility] [address] [place] [address]- Surgical Pathology Report Collected Date/Time: 05/11/2025 09:14 EDT Pathologist: Lashaun Peguero MD Received Date/Time: 05/11/2025 09:52 SOMT Ricky ROBLERO, Luis Antonio García MD, Luis Antonio Tiwari 07 Surgical Pathology Report - 05/16/2025 12:27 EDT - Auth (Verified) Final Diagnosis A: STOMACH, BIOPSY: - Antral-type mucosa with minimal reactive gastropathy - No intestinal metaplasia identified. - No H. pylori microorganisms identified with immunostain. B: RIGHT COLON, BIOPSY: - Colonic mucosa with no pathologic changes C: TRANSVERSE COLON, BIOPSY: - Colonic mucosa with no pathologic changes D: LEFT COLON, BIOPSY: - Colonic mucosa with no pathologic changes E: RECTAL COLON, BIOPSY: - TUBULAR ADENOMA WITH LAMINA PROPRIA FIBROSIS F: POLYP, DESCENDING COLON, POLYPECTOMY: - Polypoid colonic mucosa with no pathologic changes G: RECTOSIGMOID COLON, BIOPSY: - TUBULAR ADENOMA WITH LAMINA PROPRIA FIBROSIS H: POLYP, SIGMOID COLON, POLYPECTOMY: - Hyperplastic polyp (Electronic Signature) Lashaun. MD Marielena 05/16/2025 12:27 Clinical Information Ulcerative colitis, history of polyps Pre-Op Diagnosis: Ulcerative colitis, history of polyps Procedure: EGD, colonoscopy Post-Op Diagnosis: 1. Esophageal landmarks identified, slight decreased motility through the esophagus based on endoscopic exam, nonspecific. Otherwise normal examined esophagus 2. Moderate patchy erythema in the antrum of the stomach with couple small erosions, otherwise normal examined stomach. Random biopsies were taken for histology and H. pylori 3. Normal examined duodenum 4. Small internal hemorrhoids 5. Mild edematous mucosa in the rectum, rectosigmoid area between 20 and 30 cm 6. 5 mm polyp highly suspicious for inflammatory polyp, resected with cold snare completely and retrieved. 1 clip was placed to prevent delayed bleeding 7. Otherwise normal colonic mucosa, Morales score 0. Dysplasia surveillance was done using white light, TXA mode and NBI mode. In addition, biopsies were taken every 10 cm from right colon, transverse colon, left colon, rectosigmoid colon and rectum to rule out dysplasia and assess for colitis 8. Normal examined terminal ileum Surgical Pathology Report Collected Date/Time: 05/11/2025 09:14 EDT Pathologist: Lashaun Peguero MD Received Date/Time: 05/11/2025 09:52 EDT Ricky ROBLERO, Luis Antonio García MD, Luis Antonio Tiwari Specimen(s) Received A.Gastric biopsy B.Right colon biopsy C.Transverse colon biopsy D.Left colon biopsy E.Rectal colon biopsy F.Descending colon polyp G.Recto-sigmoid biopsy H.Sigmoid colon polyp Gross Description A: Received in formalin labeled with patient name, number, and gastric biopsy are multiple fragments of moy/pink tissue ranging from less than 0.1 cm up to 0.5 cm in greatest dimension. Specimen is entirely submitted in one cassette. B: Received in formalin labeled with patient name, number, and right colon biopsy are two fragments of moy/pink tissue measuring less than 0.1 cm and up to 0.2 cm. Specimen is entirely submitted in one cassette. C: Received in formalin labeled with patient name, number, and transverse colon biopsy are multiple fragments of moy/pink tissue each measuring 0.1 cm. Specimen is entirely submitted in one cassette. D: Received in formalin labeled with patient name, number, and left colon biopsy are multiple fragments of moy/pink tissue measuring less than 0.1 cm and up to 0.2 cm. Specimen is entirely submitted in one cassette. E: Received in formalin labeled with patient name, number, and rectal colon biopsy are two fragments of moy/pink tissue each measuring 0.1 cm. Specimen is entirely submitted in one cassette. F: Received in formalin labeled with patient name, number, and descending colon polyp is a single fragment of moy/red/pink tissue measuring 1 x 0.5 x 0.1 cm. Black debridement-like material measuring up to 0.2 cm is present. Specimen is entirely submitted in one cassette. G: Received in formalin labeled with patient name, number, and rectosigmoid biopsy are two fragments of moy/pink tissue measuring 0.1 and 0.2 cm. The specimen is entirely submitted in one cassette. H. Received in formalin labeled with patient name, number, and sigmoid colon polyp are multiple fragments of moy/pink tissue ranging from less than 0.1 cm up to 0.4 cm in greatest dimension. Specimen measures in aggregate 0.5 x 0.5 x 0.1 cm. Specimen is entirely submitted in one cassette. (DC) DC:MCA Microscopic Description The use of one or more reagents in the above tests is regulated as an analyte specific reagent (ASR). The test or tests are ordered following initial H&E microscopic examination. The performance characteristics were determined by the [facility]. The (more content not included)... Normal [facility] Comment on above: Performed By: #### [id number] #### [facility] [address] [place] [address] Main OR Intraoperative Recor don 05-12-2025 Main OR Intraoperative Record Main OR Intraoperative Record IntraOp Document Type FT Summary Primary Physician: Luis Antonio García MD Finalized Date/Time: 05/12/25 09:28:01 Pt. Name: JAM TOSCANO D.O.B./Sex: 1965 Male Med Rec #: [id number] Physician: Luis Antonio García MD Financial #: [id number] Pt. Type: O Room/Bed: / Admit/Disch: 05/11/25 08:07:42 - 05/11/25 23:59:59 Institution: Case Times FT Entry 1 Patient Times In Room 05/11/25 09:02:00 Out Room 05/11/25 09:41:00 Procedure Times Start 05/11/25 09:07:00 Stop 05/11/25 09:38:00 Anesthesia Times Start 05/11/25 09:02:00 Stop 05/11/25 09:41:00 Time at [facility] 05/11/25 09:15:00 Last Modified By: Rodrigo RAMESH, Rosanna Amin 05/11/25 16:51:20 General Comments: EGD end time at 0909./MATEORN Colonoscopy start time at 0914./MATEO,RN Case Attendance FT Entry 1 Entry 2 Entry 3 Case Attendee Fatmata Blood CRNA, RN, Jennifer Flores Role Performed Anesthesiologist Senior Medical Writer - Primary Scrub - Primary Medical Delivery Driver Time In 05/11/25 09:02:00 05/11/25 09:02:00 05/11/25 09:02:00 Time Out 05/11/25 09:41:00 05/11/25 09:41:00 05/11/25 09:41:00 Procedure EGD AND COLONOSCOPY(.) EGD AND COLONOSCOPY(.) EGD AND COLONOSCOPY(.) Comments Dr. Ramos is supervising Last Modified By: Rodrigo RAMESH, Rosanna Wallace RN, Rosanna Wallace RN, Rosanna Amin 05/11/25 09:41:59 05/11/25 09:41:59 05/11/25 09:41:59 Entry 4 Entry 5 Case Attendee Jeniffer OLMSTEAD, Claire García MD, Luis Antonio Tiwari Role Performed Staff - Other Surgeon - Primary Time In 05/11/25 09:02:00 05/11/25 09:02:00 Time Out 05/11/25 09:41:00 05/11/25 09:41:00 Procedure EGD AND COLONOSCOPY(.) EGD AND COLONOSCOPY(.) Comments Last Modified By: Rosanna Wallace RN, RN, Rosanna Amin 05/11/25 09:41:59 05/11/25 09:41:59 Perioperative Protocols FT Pre-Care Text: Implements protective measures prior to operative or invasive procedure, confirms identity before the operative or invasive procedure, verifies operative procedure, surgical site, and laterality Entry 1 Procedure(s) EGD AND COLONOSCOPY(.) Patient Identity Birthday, ID Band Verified (select at Check, Patient least 2): Participation Consents / H and P Anesthesia Consent, Operative Site N/A Verified H&P, Surgery/Procedure Marking Verified Consent Surgical Site No Laterality Verified n/a Verified Procedure Verified Yes Correct Patient Yes Position Verified Availability Equipment, Medication Prep Dry n/a Verified (If Applicable) PreOp Antibiotic No Time Out Fatmata Blood CRNA, Given Participants Rosanna Wallcae RN, Sparks, Micala E, Jeniffer OLMSTEAD, Ricky Sylvester MD, Luis Antonio Tiwari Time Out Complete 05/11/25 09:05:00 Outcomes Met? Yes Last Modified By: Rosanna Wallace RN 05/11/25 09:05:10 Post-Care Text: The patient is free from signs and symptoms of injury caused by extraneous objects Allergy Information FT Pre-Care Text: Verifies allergies Entry 1 Allergies Reviewed? Yes Allergies Reviewed Self/Patient With Outcomes Met? Yes Last Modified By: Rosanna Wallace RN 05/11/25 09:11:30 Post-Care Text: The patient received appropriate medication(s) safely administered during the perioperative period Surgical Procedures FT Entry 1 Procedure Description Procedure EGD AND COLONOSCOPY Modifiers . Surgeon Description EGD with gastric biopsy. Colonoscopy with right colon biopsy, transverse colon biopsy, left colon biopsy, rectal colon biopsy, descending colon polypectomy and sigmoid colon polypectomy with x1 hemmoclip applied, recto sigmoid biopsy. Primary Procedure Yes Primary Surgeon Luis Antonio García MD Start 05/11/25 09:07:00 Stop 05/11/25 09:38:00 Anesthesia Type General Surgical Service Gastroenterology Wound Class 2 - Clean-Contaminated Last Modified By: Rosanna Wallace RN 05/11/25 09:38:45 General Case Data FT Pre-Care Text: Classifies surgical wound, implements aseptic technique, initiates traffic control Entry 1 Case Information OR ENDO 1 FT Case Level Level 2 Wound Class 2 - Clean-Contaminated Specialty Gastroenterology ASA Class 3 Preop Diagnosis Ulcerative colitis, Postop Same As Preop No history of polyps Postop Diagnosis EGD- Gastritis, small Outcomes Met? Yes gastric erosions, decreased motility in stomach. Colonoscopy- Descending colon polyp, sigmoid colon polyp, scarring in the rectum. Last Modified By: Rosanna Wallace RN 05/11/25 09:38:34 Post-Care Text: The patient is free from signs and symptoms of infection Skin Assessment (Pre Procedure) FT Pre-Care Text: Implements protective measures to prevent skin/ tissue injury due to thermal or mechanical sources Evaluates for signs and symptoms of physical injury to skin and tissue Entry 1 Skin Integrity Intact, [place], Warm, & Skin Abnormality No Dry Outcomes Met? Yes Last Modified By: Rodrigo RAMESH, (more content not included)... Normal [facility] Discharge Instructionson Discharge Instructions Discharge Instructions JAM TOSCANO :1965 Visit Date:05/11/2025 Inpatient Discharge Instructions Your Care Team Admitting Physician - Luis Antonio García MD Referring Physician - Luis Antonio García MD Reason for Your Visit ULCERATIVE COLITIS, HISTORY OF COLON POLYPS Your Diagnosis Acute gastritis Colitis, ulcerative Tests Performed Pathology Tissue Exam -- Results Pending -- Please visit your patient portal for your results or contact your primary care physician. This Is Your Medications List Turmeric atorvastatin (atorvastatin 20 mg Tab) cholecalciferol (cholecalciferol 5000 intl units oral capsule) ezetimibe (Zetia 10 mg Tab) folic acid (folic acid 1 mg Tab) lisinopril methotrexate (methotrexate 2.5 mg Tab) multivitamin with minerals (Multivitamins and Minerals) omeprazole (omeprazole 40 mg Cap-DR) sulfasalazine vedolizumab (Entyvio Pen 108 mg/0.68 mL subcutaneous solution) Procedure History Colonoscopy (06/03/2024), Esophagogastroduodenoscopy (06/03/2024), Colonoscopy (02/26/2024), Colonoscopy (03/23/2023), Cystoscopy (02/04/2021), Colonoscopy, Procedure on hip, Procedure on knee. Discharge Vitals Temperature (Temporal Artery) 36.7 ???C Heart Rate (Monitored) 82 Respiratory Rate 18 Blood Pressure 116/81 Height 166 cm Weight 77 kg What to do next Instructions From Your Doctor No qualifying data available. Previously Scheduled Follow-Up Appointments Thursday 8:15 AM EDT With: Ricky ROBLERO, Luis Antonio Tiwari Where: [facility] [address] [facility] [place] [address] [place] [phone]- New Follow Up Appointments after Discharge Follow Up with Ricky ROBLERO, Luis Antonio Tiwari, [facility] When: Comments: office will call for follow up Where: [address], [address] [facility] [address] [place] [phone] Medications What How Much When Instructions Next Dose Unchanged atorvastatin (atorvastatin 20 mg Tab) 1 Tablets By Mouth Every day Unchanged cholecalciferol (cholecalciferol 5000 intl units oral capsule) By Mouth Every day Unchanged ezetimibe (Zetia 10 mg Tab) 1 Tablets By Mouth Every day Unchanged folic acid (folic acid 1 mg Tab) 1 Tablets By Mouth Every day Unchanged lisinopril 10 Milligram By Mouth Every day Unchanged methotrexate (methotrexate 2.5 mg Tab) 4 Tablets By Mouth Every 7 days Unchanged multivitamin with minerals (Multivitamins and Minerals) 1 tab By Mouth Every day Unchanged omeprazole (omeprazole 40 mg Cap-DR) 1 Capsules By Mouth Every day Unchanged sulfasalazine 500 Milligram By Mouth 4 times a day Unchanged Turmeric 400 Milligram By Mouth Every day Unchanged vedolizumab (Entyvio Pen 108 mg/ 0.68 mL subcutaneous solution) 108 Milligram Subcutaneous Every other week Test Results No qualifying data available. Allergies No Known Allergies No Known Medication [...] PSA (prostate specific antigen) Ulcerative colitis, universal Vardaman ulcerative colitis Ureteral stone with hydronephrosis Urethral stone Historical - Any problem that you are no longer receiving treatment for. Extreme obesity Ulcerative colitis Education Materials Upper Endoscopy, Adult, Care After After the procedure, it is common to have a sore throat. It is also common to have: ??? Mild stomach pain or discomfort. ??? Bloating. ??? Nausea. Follow these instructions at home: The instructions below may help you care for yourself at home. Your health care provider may give you more instructions. If you have questions, ask your health care provider. ??? If you were given a sedative during the procedure, it can affect you for several hours. Do not drive or operate machinery until your health care provider says that it is safe. ??? If you will be going home right after the procedure, plan to have a responsible adult: ? Take you home from the hospital or clinic. You will not be allowed to drive. ? Care for you for the time you are told. ??? Follow instructions from your health care provider about what you may eat and drink. ??? Return to your normal activities as told by your health care provider. Ask your health care provider what activities are safe for you. ??? Take gayi-xmj-mwljzca and prescription medicines only as told by your health care provider. Contact (more content not included)... Normal [facility] Comment on above: Result Comment: Elec tronically Signed By: Jose RAMESH, Mary Lou\.br\Date and Time Signed: 05/11/25 09:53 EDT Main OR PACU I Recordon 04-17 Main OR PACU I Record Main OR PACU I Record PACU Phase I Document Type FT Summary Primary Physician: Luis Antonio García MD Finalized Date/Time: 05/11/25 10:51:19 Pt. Name: JAM TOSCANO Angel Ochoa/Sex: 1965 Male Med Rec #: [id number] Physician: Luis Antonio García MD Financial #: [id number] Pt. Type: O Room/Bed: / Admit/Disch: 05/11/25 08:07:42 - Institution: Case Times PACU I FT [...] to medications Entry 1 In PACU I 05/11/25 09:42:00 Discharge from PACU 05/11/25 10:12:00 I Outcomes Met? Yes Last Modified By: Mary Lou Garcia RN 05/11/25 10:51:03 Post-Care Text: The patient demonstrates knowledge of [...] PACU I FT Entry 1 Start Time 05/11/25 09:42:00 Stop Time 05/11/25 10:12:00 Acuity Level Acuity Level I Last Modified By: Mary Lou Garcia RN 05/11/25 10:51:16 Finalized By: Mary Lou Garcia RN Document Signatures Signed By: Mary Lou Garcia RN 05/11/25 10:51 Normal [facility] Main OR Preoperative Recordo n 05-11-2025 Main OR Preoperative Record Main OR Preoperative Record Holding Area Document Type FT Summary Primary Physician: Luis Antonio García MD Finalized Date/Time: 05/11/25 08:28:46 Pt. Name: JAM TOSCANO/Sex: 1965 Male Med Rec #: [id number] Physician: Luis Antonio García MD Financial #: [id number] Pt. Type: O Room/Bed: / Admit/Disch: 05/11/25 08:07:42 - Institution: Case Times Holding FT Pre-Care Text: Verifies consent for planned procedure, identifies individual values and wishes concerning care, includes family members in perioperative teaching Secures patient's records' belongings, and valuables, maintains patient's dignity and privacy, and maintains patient confidentiality Entry 1 In Holding 05/11/25 08:12:00 Outcomes Met? Yes Last Modified By: Obdulia Del Toro RN 05/11/25 08:18:38 Post-Care Text: The patient participates in decisions affecting his or her perioperative plan of care The patient's right to privacy is maintained Surgery Checklist FT Entry 1 Patient Birthday, ID Band Procedure History and Physical, Identification: Check, Patient Verification: Surgical Consent, With Participation Patient NPO after Midnight: Yes Results Reviewed Clear/yellow Comments: Complaints of Pain: No Pain Comment: Denies Operative Site n/a Availability Equipment Marking: Verified: Does Patient Smoke No Patient states Yes Comment - Adult Sister- Holli postop adult Supervision supervision available Case Cancelled in No Holding Area see comments below for reason Last Modified By: Obdulia Del Toro RN 05/11/25 08:20:02 General Comments: Pt completed prep at 0500 and remained NPO since/MATEO,RN Finalized By: Obdulia Del Toro RN Document Signatures Signed By: Obdulia Del Toro RN 05/11/25 08:28 Normal [facility] No Panel Informationon 05-03 Radiology Study observation (narrative) [employer] XR Knee - left 1 or 2 Viewso n 05-03-2025 Imaging Result: AP and lateral of left [...] dislocation. Impression: Unremarkable left total knee arthroplasty. [facility] - right 1 or 2 Views on 05-03-2025 Imaging Result: AP and lateral of right [...] dislocation. Impression: Unremarkable right total knee arthroplasty. [employer] XR Hip - right 3 Viewson Imaging [...] dislocation. Impression: Unremarkable right total hip arthroplasty. [facility] [employer] [facility] [employer] Radiology Study observation (narrative) [facility] CNOVon 02-14-2025 CNOV Office Visit (ANGEL ) JAM TOSCANO ([id number]) 1965 M Date Time Provider Department 02/14/25 7:20 AM DARRIAN DUBON During your visit today, we recorded the following information about you: Pulse Blood pressure Weight 66/minute 134/74 79 kg Darrian Dubon MD 02/20/2025 5:28 PM Signed FOLLOW UP VISIT Patient's Name: Jam [facility] [id number] PCP: Jose L Lackey MD [address] [place] [phone] Consult [place]ed [place]: [place] [address] [place] [phone] Other physicians: [facility] prev. Nel Lebron MD (his prev. marquetry worker left- Ronald Brown MD) ; Now following [...] BRBPR and denies melena. He follows with [facility] for his UC. States has scopes this summer by his marquetry worker. He is following with Orthopedics for his osteoarthroses and non-inflammatory joint pains. He has a chronic rotator cuff tear and extensive bilateral glenohumeral degenerative disease. His s/p b/l TKR and rt THR. Hissed rate was elevated at 79 04/2024 at time of his pneumonia. He continues on sulfasalazine and Entyvio by his marquetry worker. 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 Has been on Humira since Sep 2020 (started with 80 mg loading dose and since has been on 40 mg every 2 wks) He was pleased with Enbrel response to his RA and later was switched to Humira, reports has similar benefit and is pleased with response. His marquetry worker switched him to Humira for optimal mgt of IBD and he feels this has helped his IBD better. Reports still gets 8 BM's a day, does not have BM at night, does not have to wake up from sleep. Has been following with his marquetry worker for his UC Had colonoscopy 11/22/2021 with reported marked improvement in asc/transv/desc colon and severe active in rectum, histopath with active colitis with erosions. States Dr. Lebron has started him on rectal enemas. Recent colonoscopy with reported active colitis. He tells me that he continues to have multiple BM's; His marquetry worker prescribed pred. course, completed recently. No jt [...] us, he is on Humira per his [facility] He is off Enbrel, was switched to Humira by his marquetry worker. (previously was on Enbrel 25 mg twice a wk and has been in remission since on Enbrel and very pleased with his treatment regimen) He is on Humira 40 mg every 2 wks by his [facility] He is on sulfasalazine, Humira and mesalamine enemas per his marquetry worker I have reviewed benefits of a whole food plant based diet He consumes dairy, cheese, sausage, hamburger. I have advised him on avoiding meats and dairy and reviewed reports and patient experience with flare of IBD and RA, as well as gastrointestinal dysbiosis. (more content not included)... Normal [facility] Quantiferon-TB Plus (Client Incubated)on 12-16-2024 Gamma interferon background IA Qn (Bld) 0.09 International_Unit/mL Invalid Interpretation Code [facility] Comment on above: Performed By: #### 1 [id number] #### [facility] [address] [place] [address] M. tuberculosis stim IFN-g by CD4+ CD8+ T-cells corrected for background Qn (Bld) 0.07 International_Unit/mL Invalid Interpretation Code [facility] Comment on above: Performed By: #### 1 [id number] #### [facility] [address] [place] [address] M. tuberculosis stim IFN-g by CD4+ T-cells corrected for background Qn (Bld) 0.07 International_Unit/mL Invalid Interpretation Code [facility] Comment on above: Performed By: #### 1 [id number] #### [facility] [address] [place] [address] M. tuberculosis stim IFN-g Ql (Bld) [Interp] Negative Invalid Interpretation Code Negative [facility] Comment on above: Result Comment: No [...] interferon gamma. Chemiluminescence immunoassay methodology Performed at: [address] [id number] PhD Tarun Olivas Performed By: #### 1 [id number] #### [facility] [address] [id number] Mitogen stimulated gamma interferon corrected for background Qn (Bld) >10.00 Invalid Interpretation Code [facility] Comment on above: Performed By: #### 1 [id number] #### [facility] [address] [place] [address] Service comment (Unsp spec) [Interp] Comment Invalid Interpretation Code [facility] Comment on above: Result Comment: Malachi [...] for the test. Performed By: #### 1 [id number] #### [facility] [address] [place] [address] AMA Ab Scron 12-15-2024 Mitochondria M2 IgG Qn (S) <20.0 Invalid Interpretation Code 0.0-20.0 [facility] Comment on above: Result Comment: Nega tive 0.0 - 20.0 Equivocal 20.1 - 24.9 Positive >24.9 Mitochondrial (M2) Antibodies are found in 90-96% of patients with primary biliary cirrhosis. Performed at: [facility] [address] [place] [id number] PhD Tarun Olivas Performed By: #### 1 [id number] #### [facility] [address] [place] [address] Celiac Disease Comprehensive on 12-15-2024 Endomysium IgA Ql (S) Negative Invalid Interpretation Code Negative [facility] Comment on above: Performed By: #### 1 [id number] #### [facility] [address] [place] [address] Gliadin peptide IgA Qn (S) 5 unit(s) Invalid Interpretation Code 0-19 [facility] Comment on above: Result Comment: Nega tive 0 - 19 Weak Positive 20 - 30 Moderate to Strong Positive >30 Performed By: #### 1 [id number] #### [facility] [address] [place] [address] Gliadin peptide IgG Qn (S) 2 unit(s) Invalid Interpretation Code 0-19 [facility] Comment on above: Result Comment: Nega tive 0 - 19 Weak Positive 20 - 30 Moderate to Strong Positive >30 Performed By: #### 1 [id number] #### [facility] [address] [place] [address] IgA [Mass/Vol] 199 mg/dL Invalid Interpretation Code 90-386 [facility] Comment on above: Result Comment: Perf ormed at: [facility] [address] [id number] PhD Tarun Olivas Performed By: #### 1 [id number] #### [facility] [address] [place] [address] tTG IgA Qn (S) <2 Invalid Interpretation Code 0-3 [facility] Comment on above: Result Comment: Nega tive 0 - 3 Weak Positive 4 - 10 Positive >10 Tissue Transglutaminase (tTG) has been identified as the endomysial antigen. Studies have demonstr- ated that endomysial IgA antibodies have over 99% specificity for gluten sensitive enteropathy. Performed By: #### 1 [id number] #### [facility] [address] [place] [address] tTG IgG Qn (S) 6 unit/mL High 0-5 [facility] Comment on above: Result Comment: Nega tive 0 - 5 Weak Positive 6 - 9 Positive >9 Performed By: #### 1 [id number] #### [facility] [address] [place] [address] Hep Bs Abon 12-15-2024 HBV surface Ab Ql (S) Non-Reactive Invalid Interpretation Code [facility] Comment on above: Result Comment: Non Reactive: Not immune to HBV infection. Equivocal: Unable to determine if anti-HBs is present at levels consistent with immunity. Reactive: Anti-HBs concentration detected at greater than 10 mIU/mL. Individual is considered to be immune to infection with HBV. [facility]formed at: [facility] [id number] PhD Tarun Olivas Performed By: #### 2 [id number] #### [facility] [address] [place] [address] Hep Bs Agon 12-15-2024 HBV surface Ag IA Ql Negative Invalid Interpretation Code Negative [facility] Comment on above: Result Comment: Perf ormed at: [address] [id number] PhD Tarun Olivas Performed By: #### 2 [id number] #### [facility] [address] [place] [address] Ambulatory Visit Summaryon 0 12-14-2024 Ambulatory Visit Summary Ambulatory Visit Summary JAM TOSCANO :1965 Visit Date:12/14/2024 Ambulatory [...] mL subcutaneous solution) Procedures Performed Colonoscopy (06/03/2024), Esophagogastroduodenoscopy (06/03/2024), Colonoscopy (02/26/2024), Colonoscopy (03/23/2023), Cystoscopy (02/04/2021), Colonoscopy, Procedure on hip, Procedure on knee. Discharge Vitals Respiratory Rate 12 Blood Pressure 117/79 Height 166 cm Height 65 in Weight 77 kg Weight 169.756 lb BMI 27.94 What to do next Scheduled Follow-Up Appointments Thursday 8:15 AM EDT With: Ricky ROBLERO, Luis Antonio Tiwari Where: [facility] [address] [facility] [address] [address]- You Need to Complete the Following C-Reactive [...] PSA (prostate specific antigen) Ulcerative colitis, universal Vardaman ulcerative colitis Ureteral stone with hydronephrosis Urethral [...] for choosing us for your care. Normal [facility] CBC w/ Auto Diffon 5 Basophils/100 WBC (Bld) 0.5 % Normal 0.0-2.0 [facility] Comment on above: Performed By: #### 2 [id number] #### [facility] [address] [place] [address] Basophils/Leukocyt es Auto (Bld) [Pure # fraction] 0.0 E9/L Normal 0.0-0.2 [facility] Comment on above: Performed By: #### 2 [id number] #### [facility] [address] [place] [address] Eosinophils (Bld) [#/Vol] 0.0 E9/L Normal 0.0-0.5 [facility] Comment on above: Performed By: #### 2 [id number] #### [facility] [address] [place] [address] Eosinophils/100 WBC (Bld) 0.0 % Normal 0.0-8.0 [facility] Comment on above: Performed By: #### 2 [id number] #### [facility] [address] [place] [address] Erythrocyte distribution width (RBC) [Ratio] 15.6 % High 10.9-14.2 [facility] Comment on above: Performed By: #### 2 [id number] #### [facility] [address] [place] [address] Hematocrit (Bld) [Volume fraction] 36.2 % Low 37.7-49.0 [facility] Comment on above: Performed By: #### 2 [id number] #### [facility] [address] [place] [address] Hemoglobin (Bld) [Mass/Vol] 12.6 g/dL Low 13.5-17.5 [facility] Comment on above: Performed By: #### 2 [id number] #### [facility] [address] [place] [address] Lymphocytes (Bld) [#/Vol] 1.6 E9/L Normal 1.0-4.0 [facility] Comment on above: Performed By: #### 2 [id number] #### [facility] [address] [place] [address] Lymphocytes/100 WBC (Bld) 24.8 % Normal 14.0-50.0 [facility] Comment on above: Performed By: #### 2 [id number] #### [facility] [address] [place] [address] MCH (RBC) [Entitic mass] 31.7 pg Normal 27.0-34.0 [facility] Comment on above: Performed By: #### 2 [id number] #### [facility] [address] [place] [address] MCHC (RBC) [Mass/Vol] 34.9 g/dL Normal 31.4-36.0 [facility] Comment on above: Performed By: #### 2 [id number] #### [facility] [address] [place] [address] MCV (RBC) [Entitic vol] 90.8 fL Normal 80.0-100.0 [facility] Comment on above: Performed By: #### 2 [id number] #### [facility] [address] [place] [address] Monocytes (Bld) [#/Vol] 0.5 E9/L Normal 0.2-1.0 [facility] Comment on above: Performed By: #### 2 [id number] #### [facility] [address] [place] [address] Neutrophils (Bld) [#/Vol] 4.4 E9/L Normal 2.0-7.5 [facility] Comment on above: Performed By: #### 2 [id number] #### [facility] [address] [place] [address] Neutrophils/100 WBC (Bld) 67.2 % Normal 36.0-75.0 [facility] Comment on above: Performed By: #### 2 [id number] #### [facility] [address] [place] [address] Platelet 261.0 E9/L Normal 150.0-500.0 [facility] Comment on above: Performed By: #### 2 [id number] #### [facility] [address] [place] [address] Platelet mean volume (Bld) [Entitic vol] 6.9 fL Normal 6.4-10.8 [facility] Comment on above: Performed By: #### 2 [id number] #### [facility] [address] [place] [address] RBC (Bld) [#/Vol] 4.0 E12/L Low 4.3-5.9 [facility] Comment on above: Performed By: #### 2 [id number] #### [facility] [address] [place] [address] WBC corrected for nucl RBC Auto (Bld) [#/Vol] 6.6 E9/L Normal 4.0-11.0 [facility] Comment on above: Performed By: #### 2 [id number] #### [facility] [address] [place] [address] CMPon 12-14-2024 Albumin [Mass/Vol] 4.1 g/dL Normal 3.3-5.0 [facility] Comment on above: Performed By: #### 2 [id number] #### [facility] [address] [place] [address] Albumin/Globulin (S) [Mass conc ratio] 1.5 Normal 1.1-2.2 [facility] Comment on above: Performed By: #### 2 [id number] #### [facility] [address] [place] [address] ALP [Catalytic activity/Vol] 88 Int._Unit/L Normal 21-98 [facility] Comment on above: Performed By: #### 2 [id number] #### [facility] [address] [place] [address] ALT No additional P-5'-P [Catalytic activity/Vol] 27 Int._Unit/L Normal 6-46 [facility] Comment on above: Performed By: #### 2 [id number] #### [facility] [address] [place] [address] Anion gap [Moles/Vol] 9 mmol/L Normal 6-16 [facility] Comment on above: Performed By: #### 2 [id number] #### [facility] [address] [place] [address] AST [Catalytic activity/Vol] 29 Int._Unit/L Normal 5-43 [facility] Comment on above: Performed By: #### 2 [id number] #### [facility] [address] [place] [address] Bilirubin [Mass/Vol] 0.4 mg/dL Normal 0.0-1.1 [facility] Comment on above: Performed By: #### 2 [id number] #### [facility] [address] [place] [address] Calcium [Mass/Vol] 9.1 mg/dL Normal 8.9-11.1 [facility] Comment on above: Performed By: #### 2 [id number] #### [facility] [address] [place] [address] Chloride [Moles/Vol] 108 mmol/L Normal 101-111 [facility] Comment on above: Performed By: #### 2 [id number] #### [facility] [address] [place] [address] CO2 [Moles/Vol] 27 mmol/L Normal 21-31 [facility] Comment on above: Performed By: #### 2 [id number] #### [facility] [address] [place] [address] Creatinine [Mass/Vol] 0.8 mg/dL Normal 0.5-1.3 [facility] Comment on above: Performed By: #### 2 [id number] #### [facility] [address] [place] [address] Globulin (S) [Mass/Vol] 2.8 g/dL Normal 1.4-4.0 [facility] Comment on above: Performed By: #### 2 [id number] #### [facility] [address] [place] [address] Glucose [Mass/Vol] 94 mg/dL Normal 55-199 [facility] Comment on above: Performed By: #### 2 [id number] #### [facility] [address] [place] [address] Potassium [Moles/Vol] 4.7 mmol/L Normal 3.5-5.3 [facility] Comment on above: Performed By: #### 2 [id number] #### [facility] [address] [place] [address] Protein [Mass/Vol] 6.9 g/dL Normal 6.0-7.8 [facility] Comment on above: Performed By: #### 2 [id number] #### [facility] [address] [place] [address] Sodium [Moles/Vol] 139 mmol/L Normal 135-145 [facility] Comment on above: Performed By: #### 2 [id number] #### [facility] [address] [place] [address] Urea nitrogen [Mass/Vol] 16 mg/dL Normal 5-21 [facility] Comment on above: Performed By: #### 2 [id number] #### [facility] [address] [place] [address] Urea nitrogen/Creatinin e [Mass ratio] 20 No Units Normal 10-20 [facility] Comment on above: Performed By: #### 2 [id number] #### [facility] [address] [place] [address] CRPon 12-14-2024 CRP [Mass/Vol] 0.2 mg/dL Normal <=1.9 [facility] Comment on above: Performed By: #### 2 [id number] #### [facility] [address] [place] [address] Gastroenterology Office/Clin ic Noteon 12-14-2024 Gastroenterology Office/Clinic [...] Last visit 06/13/24 w/Dr. García: Assessment/Plan 1. Vardaman ulcerative colitis (K51.00: Ulcerative (chronic) pancolitis without [...] next colonoscopy, he prefers to stay at [facility] He has also RA, no specific therapy for now, follows with Dr. Valente at [facility] We discussed that having this lesion in [...] 89.5 fL (03/02/24) Chloride: 107 mmol/L (03/02/24) [place] Absolute: 0.5 E9/L (03/02/24) CO2: 27 mmol/L (03/02/24) [place] Auto: 8.2 % (03/02/24) Creatinine: 0.8 mg/dL (03/02/24) MPV: 6.9 fL (03/02/24) Globulin: 3 gm/dL (03/02/24) Neutro Absolute: 4.2 E9/L (03/02/24) Glucose Lvl: 97 mg/dL (03/02/24) Neutro Auto: 63.6 % (03/02/24) Potassium Lvl: 3.6 mmol/L (03/02/24) Platelet: 344 E9/L (03/02/24) Sodium Lvl: 141 mmol/L (03/02/24) RBC: 3.9 E12/L Low (03/02/24) Total Protein: 7 (more content not included)... Normal [facility] Comment on above: Result Comment: Elec tronically Signed By: Ricky ROBLERO, Luis Antonio Tiwari\.sania\Date and Time Signed: 12/14/24 08:52 EST eGFRon 12-14-2024 eGFR 101 mL/min/1.73 m2 Normal >=59 [facility] Comment on above: Performed By: #### 1 [id number] #### [facility] [address] [place] [address] Ambulatory Visit Summaryon 0 11-21-2024 Ambulatory Visit Summary Ambulatory Visit Summary JAM TOSCANO :1965 Visit Date:11/21/2024 Ambulatory [...] mL subcutaneous solution) Procedures Performed Colonoscopy (06/03/2024), Esophagogastroduodenoscopy (06/03/2024), Colonoscopy (02/26/2024), Colonoscopy (03/23/2023), Cystoscopy (02/04/2021), Colonoscopy, Procedure on hip, Procedure on knee. Discharge Vitals Temperature (Oral) 37 ???C Heart Rate (Peripheral) 91 Respiratory Rate 18 Blood Pressure 118/80 Height 166 cm Height 65 in Weight 77.1 kg Weight 169.976 lb BMI 27.98 What to do next Scheduled Follow-Up Appointments Thursday 8:15 AM EST With: Ricky ROBLERO, Luis Antonio Tiwari Where: [facility] [address] [address]- You Need to Schedule the Following Appointments Follow Up with DARRELL ROBLERO, LOREE Bunch When: Where: [facility] [address], [place] [address]- Medications What How Much When Instructions Unchanged [...] PSA (prostate specific antigen) Ulcerative colitis, universal Vardaman ulcerative colitis Ureteral stone with hydronephrosis Urethral [...] What are (more content not included)... [facility] CANDIE Tele[facility] (ANGEL) JAM TOSCANO ([id number]) 1965 M Date Time Provider Department 11/21/24 [...] toe 3 days ago. 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 Denies any change in [...] apt with me or any rheum ANGÉLICA ([employer]PER[employer]LL[employer] or PA) who has opening soon. thank you kindly, Estephania Lara LPN 11/23/2024 8:01 AM Signed Please offer appt with Dr Dubon or [employer], if patient still interested. Jordyn Roberson 11/23/2024 [...] sooner apt with me. thank you kindly, vito Allergies As of Date: 11/21/2024 (No Known [...] atorvastatin (LIPITOR (more content not included)... Normal [facility] PSA Totalon 11-21-2024 Prostate specific Ag [Mass/Vol] 3.3 ng/mL Normal 0.1-3.5 [facility] Comment on above: Result Comment: The concentration of PSA determined by different manufacturers can vary due to differences in assay methods and reagent specificity. Values obtained from different assay methods cannot be used interchangeably. The methodology used for this result was chemiluminescence using [employer]'s Access Hybritech PSA reagent. Performed By: #### 1 [id number] #### [facility] [address] [place] [address] OVon 10-05-2024 CNOV Office Visit (ANGEL ) OPALJAM DONALD ([id number]) 1965 M Date Time Provider Department 10/05/24 7:20 AM DARRIAN DUBON During your visit today, we recorded the following information about you: Pulse Blood pressure Weight 66/minute 128/76 77.7 kg Darrian Dubon MD 10/16/2024 7:47 PM Signed FOLLOW UP VISIT Patient's Name: [facility] [address] PCP: Jose L Lackey MD [address] [place] [phone] Consult Requested by: Jose L Lackey MD [address] [place], [place] [id number] Other physicians: [employer] prev. Nel Lebron MD (his prev. 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 Has been on Humira since Sep 2020 (started with 80 mg loading dose and since has been on 40 mg every 2 wks) He was pleased with Enbrel response to his RA and later was switched to Humira, reports has similar benefit and is pleased with response. His marquetry worker switched him to Humira for optimal mgt of IBD and he feels this has helped his IBD better. Reports still gets 8 BM's a day, does not have BM at night, does not have to wake up from sleep. Has been following with his marquetry worker for his UC Had colonoscopy 11/22/2021 with reported marked improvement in asc/transv/desc colon and severe active in rectum, histopath with active colitis with erosions. States Dr. Lebron has started him on rectal enemas. Recent colonoscopy with reported active colitis. He tells me that he continues to have multiple BM's; His marquetry worker prescribed pred. course, completed recently. No jt [...] us, he is on Humira per his [employer] He is off Enbrel, was switched to Humira by his marquetry worker. (previously was on Enbrel 25 mg twice a wk and has been in remission since on Enbrel and very pleased with his treatment regimen) He is on Humira 40 mg every 2 wks by his [employer] He is on sulfasalazine, Humira and mesalamine enemas per his marquetry worker I have reviewed benefits of a whole food plant based diet He consumes dairy, cheese, sausage, hamburger. I have advised him on avoiding meats and dairy and reviewed reports and patient experience with flare of IBD and RA, as well as gastrointestinal dysbiosis. I advised him on a whole foods plant based diet. 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 Normal [facility] Ambulatory Visit Summaryon 0 06-13-2024 Ambulatory Visit Summary Ambulatory Visit Summary JAM TOSCANO :1965 Visit Date:06/13/2024 Ambulatory Visit Instructions Your Diagnosis Vardaman ulcerative colitis History of colon polyps Elevated [...] mg intravenous injection) Procedures Performed Colonoscopy (06/03/2024), Esophagogastroduodenoscopy (06/03/2024), Colonoscopy (02/26/2024), Colonoscopy (03/23/2023), Cystoscopy (02/04/2021), [...] (Entyvio 300 mg intravenous injection) See instructions Vardaman ulcerative colitis 300 mg/ kg at week [...] Prostate calculus Rectal bleed Ulcerative colitis, universal [place]ardaman ulcerative colitis Urethral stone Historical - Any problem that you are no longer receiving treatment for. Extreme obesity Ulcerative colitis Patient Survey You may receive a survey via text or e-mail asking about your office visit. Please share your experience with us by completing your survey. We appreciate your feedback and thank you for choosing us for your care. Cleo [facility] Gastroenterology Office/Clin ic Noteon 06-13-2024 Gastroenterology [...] referral to IBD specialist and Colorectal at [facility]- patient declined at this time and would like to repeat colon in 6 months at [facility] He has also RA, no specific therapy for now, follows with Dr. Valente at [facility] We discussed that having this lesion in [...] 89.5 fL (03/02/24) Chloride: 107 mmol/L (03/02/24) [place] Absolute: 0.5 E9/L (03/02/24) CO2: 27 mmol/L (03/02/24) [place] Auto: 8.2 % (03/02/24) Creatinine: 0.8 mg/dL [...] WT: 167.2 lb BMI: 26.93 Assessment/Plan 1. Vardaman ulcerative colitis (K51.00: Ulcerative (chronic) pancolitis without complications) UC History: Severe ulcerative colitis , dx 03/2015, started on (more content not included)... Normal [facility] Comment on above: Result Comment: Elec tronically Signed By: Ricky ROBLERO, Luis Antonio Tiwari\.br\Date and Time Signed: 06/13/24 10:35 EDT Surgical Pathology Reporton 06-07-2024 Surgical Pathology Report [facility] [address] [place] [address]- Surgical Pathology Report Collected Date/Time: 06/03/2024 10:08 [...] is entirely submitted in one cassette. (DC) DC:[facility] Microscopic Description A-E: Microscopic examination performed unless gross only specified. The use of one or more reagents in the above tests is regulated as an analyte specific reagent (ASR). The test or tests are ordered following initial H&E microscopic examination. The performance characteristics were determined by the Laboratory [facility]. They have not been cleared or approved by the US Food and Drug Administration. The FDA has determined that such clearance or approval is not necessary. These tests are used for clinical purposes. They should not be regarded as investigational or for research. Appropriate positive and negative controls are performed and are acceptable. Normal [facility] Comment on above: Performed By: #### 4 [id number] #### [facility] [address] [place] [id number] XR Hand - bilateral PA and L ateral and Obliqueon 03-14-2024 IMPRESSION: Severe changes of chronic inflammatory arthritis, similar to prior. Left hand metallic foreign body. [employer] Architect: CODY Transcribe Date/Time: Mar 14 2024 1:31P Dictated by : HORACIO DAWSON MD This examination was interpreted and the report reviewed and electronically signed by: HORACIO DAWSON MD on Mar 14 2024 5:53PM [facility] DIVISION OF RADIOLOGY * * *Final Report* [...] of the [facility]. DIVISION OF RADIOLOGY Provider, [facility] - 03/14/2024 * * *Final Report* [...] to prior. Left hand metallic foreign body. [employer] Architect: CODY Transcribe Date/Time: Mar 14 2024 1:31P Dictated by : HORACIO DAWSON MD This examination was interpreted and the report reviewed and electronically signed by: HORACIO DAWSON MD on Mar 14 2024 5:53PM EST [facility] Radiology Study observation (narrative) [facility] XR Hand - bilateral PA and L ateral and ObliqueOrdered By: [facility] Provider on 03-14-2024 [facility] LIPID PROFILEon 02-11-2023 CHOL-HDL RATIO NORM SEE BELOW Normal [facility] Comment on above: Result Comment: 3.3 - 4.4 LOW RISK 4.4 - 7.1 AVERAGE RISK 7.1 - 11.0 MODERATE RISK >11.0 HIGH RISK Performed By: #### L IPID, LIVER #### [facility] [address] [address] [address] Rj Miller Cholesterol [Mass/Vol] 99 mg/dL Normal <=200 [facility] Comment on above: Performed By: #### L IPID, LIVER #### [facility] [address] [address] [address] Rj Miller Cholesterol in HDL [Mass/Vol] 44 mg/dL Normal 40-60 [facility] Comment on above: Performed By: #### L IPID, LIVER #### [facility] [address] [address] [address] Rj Miller Cholesterol in LDL [Mass/Vol] 45.4 mg/dL Normal [facility] Comment on above: Performed By: #### L IPID, LIVER #### [facility] [address] [address] [address] Rj Miller Cholesterol.total/ Cholesterol in HDL [Mass ratio] 2.3 {ratio} Normal [facility] Comment on above: Performed By: #### L IPID, LIVER #### [facility] [address] [address] [address] Rj Miller HDL NORMAL > or = 60 mg/dl - LO W CARDIOVASCULAR RISK <40 mg/dl - HIGH CARDIOVASCULAR RISK Normal [facility] Comment on above: Performed By: #### L IPID, LIVER #### [facility] [address] [address] [address] Rj Miller LDL CALC NORMAL SEE BELOW Normal [facility] Comment on above: Result Comment: <100 mg/dl OPTIMAL 100 - 129 mg/dl NEAR OR ABOVE OPTIMAL 130 - 159 mg/dl BORDERLINE HIGH 160 - 189 mg/dl HIGH >190 mg/dl VERY HIGH Performed By: #### L IPID, LIVER #### [facility] [address] [place] [address] Dr. Rj Miller Triglyceride [Mass/Vol] 48 mg/dL Normal <=150 [facility] Comment on above: Performed By: #### L IPID, LIVER #### [facility] [address] [place] [address] Dr. Rj Miller VLDL CALC 9.6 mg/dL Normal [facility] Comment on above: Performed By: #### L IPID, LIVER #### [facility] [address] [place] [address] Dr. Rj Miller LIVER PROFILEon 02-11-2023 Albumin [Mass/Vol] 3.7 g/dL Normal 3.4-5.0 [facility] Comment on above: Performed By: #### L IPID, LIVER #### [facility] [address] [place] [address] Dr. Rj Miller Albumin/Globulin [Mass ratio] 1.0 {ratio} Normal [facility] Comment on above: Performed By: #### L IPID, LIVER #### [facility] [address] [place] [address] Dr. Rj Miller ALP [Catalytic activity/Vol] 210 U/L Critically high 46-116 [facility] Comment on above: Performed By: #### L IPID, LIVER #### [facility] [address] [place] [address] Dr. Rj Miller ALT [Catalytic activity/Vol] 50 U/L Normal 16-63 [facility] Comment on above: Performed By: #### L IPID, LIVER #### [facility] [address] [place] [address] Dr. Rj Miller AST [Catalytic activity/Vol] 42 U/L Critically high 15-37 [facility] Comment on above: Performed By: #### L IPID, LIVER #### [facility] [address] [place] [address] Dr. Rj Miller BILI, CONJUGATED 0.1 mg/dL Normal 0.0-0.2 [facility] Comment on above: Performed By: #### L IPID, LIVER #### [facility] [address] [place] [address] Dr. Rj Miller Bilirubin [Mass/Vol] 0.3 mg/dL Normal 0.2-1.0 [facility] Comment on above: Performed By: #### L IPID, LIVER #### [facility] [address] [place], [place] [address] Dr. Rj Miller Globulin (S) [Mass/Vol] 3.7 g/dL Normal [facility] Comment on above: Performed By: #### L IPID, LIVER #### [facility] [address] [place], [place] [address] Dr. Rj Miller Protein [Mass/Vol] 7.4 g/dL Normal 6.4-8.2 [facility] Comment on above: Performed By: #### L IPID, LIVER #### [facility] [address] [place], [place] [address] Dr. Rj Miller 25-hydroxyvitamin D3 [Mass/V ol]on 01-14-2023 Vitamin D 25 [place] 40.2 ng/mL 30 - 100 ng/mL [facility] MRI LSPINE WO CONon 11-24-19 MRI LSPINE [...] complex. No central or foraminal stenosis IMPRESSION: [id number] degenerative changes resulting in mild left L2-L3 and mild right L3-L4 foraminal stenosis Electronically authenticated by: KALEIGH CANTOR Date: 2022-11-24 11:35 Normal [facility] XR LSPINE MIN 4 VIEWSon 10-17 XR LSPINE MIN 4 VIEWS EXAMINATION: XR LSPINE MIN 4 VIEWS HISTORY: Pain in lumbar [...] by: JENNY TAPIA Date: 2022-11-07 11:13 Normal [facility] DXA-AXIAL SKELETONon 022 LOWEST T-SCORE -2.5 [facility] CBC AUTO DIFFon 09-24-2022 BASO # 0.0 103/ul Normal 0.0-0.1 [facility] Comment on above: Performed By: #### C BC #### [facility] [address] [address] [address] Rj Miller Basophils/100 WBC (Bld) 0.5 % Normal 0.2-2.0 [facility] Comment on above: Performed By: #### C BC #### [facility] [address] [address] [address] Rj Miller EO # 0.2 103/ul Normal 0.0-0.7 [facility] Comment on above: Performed By: #### C BC #### [facility] [address] [address] [address] Rj Miller Eosinophils/100 WBC (Bld) 1.8 % Normal 0.9-7.0 [facility] Comment on above: Performed By: #### C BC #### [facility] [address] [place] [address] Dr. Rj Miller Erythrocyte distribution width (RBC) [Ratio] 13.6 % Normal 11.0-15.0 [facility] Comment on above: Performed By: #### C BC #### [facility] [address] [place] [address] Dr. Rj Miller Hematocrit (Bld) [Volume fraction] 41.3 % Critically low 42.0-54.0 [facility] Comment on above: Performed By: #### C BC #### [facility] [address] [place] [address] Dr. Rj Miller Hemoglobin (Bld) [Mass/Vol] 14.1 g/dL Normal 14.0-18.0 [facility] Comment on above: Performed By: #### C BC #### [facility] [address] [place] [address] Dr. Rj Miller IG # 0.02 10e3/ul Normal 0.00-0.03 [facility] Comment on above: Performed By: #### C BC #### [facility] [address] [place] [address] Dr. Rj Miller IG % 0.2 % Normal 0.0-0.5 [facility] Comment on above: Performed By: #### C BC #### [facility] [address] [place] [address] Dr. Rj Miller LYMPH # 2.4 103/ul Normal 1.2-3.8 [facility] Comment on above: Performed By: #### C BC #### [facility] [address] [place] [address] Dr. Rj Miller Lymphocytes/100 WBC (Bld) 29.5 % Normal 20.5-60.0 [facility] Comment on above: Performed By: #### C BC #### [facility] [address] [place] [address] Dr. Rj Miller MANUAL DIFF REQ NO Normal [facility] Comment on above: Performed By: #### C BC #### [facility] [address] [place] [address] Dr. Rj Miller MCH (RBC) [Entitic mass] 31.1 pg Normal 25.9-34.0 [facility] Comment on above: Performed By: #### C BC #### [facility] [address] [place] [address] Dr. Rj Miller MCHC (RBC) [Mass/Vol] 34.1 g/dL Normal 29.9-35.2 [facility] Comment on above: Performed By: #### C BC #### [facility] [address] [place] [address] Dr. Rj Miller MCV (RBC) [Entitic vol] 91.0 fL Normal 80.0-94.0 [facility] Comment on above: Performed By: #### C BC #### [facility] [address] [place] [address] Dr. Rj Miller MONO # 0.7 103/ul Normal 0.3-0.8 [facility] Comment on above: Performed By: #### C BC #### [facility] [address] [place] [address] Dr. Rj Miller Monocytes/100 WBC (Bld) 8.3 % Normal 1.7-12.0 [facility] Comment on above: Performed By: #### C BC #### [facility] [address] [place] [address] Dr. Rj Miller NEUT # 4.9 103/ul Normal 1.4-6.5 [facility] Comment on above: Performed By: #### C BC #### [facility] [address] [place] [address] Dr. Rj Miller Neutrophils/100 WBC (Bld) 59.7 % Normal 43.0-75.0 [facility] Comment on above: Performed By: #### C BC #### [facility] [address] [place] [address] Dr. Rj Miller Platelet mean volume (Bld) [Entitic vol] 8.8 fL Critically low 9.5-13.5 [facility] Comment on above: Performed By: #### C BC #### [facility] [address] [address] [address] Rj Miller PLT 288 103/ul Normal 150-450 [facility] Comment on above: Performed By: #### C BC #### [facility] [address] [address] [address] Rj Miller RBC 4.54 106/ul Critically low 4.70-6.[address] [facility] Comment on above: Performed By: #### C BC #### [facility] [address] [address] [address] Rj Miller WBC 8.2 103/ul Normal 4.0-11.0 [facility] Comment on above: Performed By: #### C BC #### [facility] [address] [place] [address] Dr. Rj Miller [facility]on SARS-CoV-2 (COVID-19) RNA BERNARDO+probe Ql (Unsp spec) Not detected Normal NOT DETECTED [facility] Comment on above: Result Comment: When [...] for this test is supported by the Salvage Engineer of Health and Human Service's declaration that [...] used). Performed By: #### C VDTBH #### [facility] [address] [place] [address] Dr. Rj Miller LIPASEon 09-24-2022 Lipase [Catalytic activity/Vol] 17.0 U/L Critically low 73.0-393.0 [facility] Comment on above: Performed By: #### C MP, LIPA, HSTROPN #### [facility] [address] [place] [address] Dr. Rj Miller PROF 14(COMP METB)on 022 Albumin [Mass/Vol] 3.8 g/dL Normal 3.4-5.0 [facility] Comment on above: Performed By: #### C MP, LIPA, HSTROPN #### [facility] [address] [place] [address] Dr. Rj Miller Albumin/Globulin [Mass ratio] 1.0 {ratio} Normal [facility] Comment on above: Performed By: #### C MP, LIPA, HSTROPN #### [facility] [address] [place] [address] Dr. Rj Miller ALP [Catalytic activity/Vol] 180 U/L Critically high 46-116 [facility] Comment on above: Performed By: #### C MP, LIPA, HSTROPN #### [facility] [address] [place] [address] Dr. Rj Miller ALT [Catalytic activity/Vol] 38 U/L Normal 16-63 [facility] Comment on above: Performed By: #### C MP, LIPA, HSTROPN #### [facility] [address] [place] [address] Dr. Rj Miller Anion gap [Moles/Vol] 8.7 mmol/L Normal [facility] Comment on above: Performed By: #### C MP, LIPA, HSTROPN #### [facility] [address] [place] [address] Dr. Rj Miller AST [Catalytic activity/Vol] 28 U/L Normal 15-37 [facility] Comment on above: Performed By: #### C MP, LIPA, HSTROPN #### [facility] [address] [place] [address] Dr. Rj Miller Bilirubin [Mass/Vol] 0.4 mg/dL Normal 0.2-1.0 [facility] Comment on above: Performed By: #### C MP, LIPA, HSTROPN #### [facility] [address] [place] [address] Dr. Rj Miller Calcium [Mass/Vol] 8.9 mg/dL Normal 8.5-10.1 [facility] Comment on above: Performed By: #### C MP, LIPA, HSTROPN #### [facility] [address] [place] [address] Dr. Rj Miller Chloride [Moles/Vol] 103 mmol/L Normal 98-107 [facility] Comment on above: Performed By: #### C MP, LIPA, HSTROPN #### [facility] [address] [place] [address] Dr. Rj Miller CO2 [Moles/Vol] 26.0 mmol/L Normal 21.0-32.0 [facility] Comment on above: Performed By: #### C MP, LIPA, HSTROPN #### [facility] [address] [place] [address] Dr. Rj Miller Creatinine [Mass/Vol] 0.88 mg/dL Normal 0.70-1.30 [facility] Comment on above: Performed By: #### C MP, LIPA, HSTROPN #### [facility] [address] [place] [address] Dr. Rj Miller EGFR-AF CITIZEN OF [place] >60 Normal >=60 [facility] Comment on above: Performed By: #### C MP, LIPA, HSTROPN #### [facility] [address] [place] [address] Dr. Rj Miller EGFR-NON AF CITIZEN OF [place] >60 Normal >=60 [facility] Comment on above: Performed By: #### C MP, LIPA, HSTROPN #### [facility] [address] [place] [address] Dr. Rj Miller Globulin (S) [Mass/Vol] 3.8 g/dL Normal [facility] Comment on above: Performed By: #### C MP, LIPA, HSTROPN #### [facility] [address] [address] [address] Rj Miller Glucose [Mass/Vol] 116 mg/dL Critically high 74-106 T [facility] Comment on above: Performed By: #### C MP, LIPA, HSTROPN #### [facility] [address] [place] [address] Dr. Rj Miller Potassium [Moles/Vol] 3.7 mmol/L Normal 3.5-5.1 [facility] Comment on above: Performed By: #### C MP, LIPA, HSTROPN #### [facility] [address] [address] [address] Rj Miller Protein [Mass/Vol] 7.6 g/dL Normal 6.4-8.2 [facility] Comment on above: Performed By: #### C MP, LIPA, HSTROPN #### [facility] [address] [place] [address] Dr. Rj Miller Sodium [Moles/Vol] 134 mmol/L Critically low 136-145 Th [facility] Comment on above: Performed By: #### C MP, LIPA, HSTROPN #### [facility] [address] [place] [address] Dr. Rj Miller Urea nitrogen [Mass/Vol] 13.0 mg/dL Normal 7.0-18.0 [facility] Comment on above: Performed By: #### C MP, LIPA, HSTROPN #### [facility] [address] [place] [address] Dr. Rj Miller Urea nitrogen/Creatinin e [Mass ratio] 14.8 mg/mg Normal [facility] Comment on above: Performed By: #### C MP, LIPA, HSTROPN #### [facility] [address] [place] [address] Dr. Rj Miller TROPONIN, HIGH SENSITIVITYon 09-24-2022 HSTROP 10.1 pg/mL Normal 4.0-76.1 [facility] Comment on above: Result Comment: CUT- OFF POINTS HAVE BEEN ESTABLISHED BASED ON THE FOURTH UNIVERSAL DEFINITIONS OF MYOCARDIAL INFARCTION. THE UPPER REFERENCE LIMIT (URL) OF TROPONIN, DEFINED THE 99TH PERCENTILE OF cTnI DISTRIBUTION IN A REFERENCE POPULATION, HAS BEEN CONFIRMED THE DECISION THRESHOLD FOR PR DIAGNOSIS. Performed By: #### C WILLIAN STEVENSON HSTROPN #### [facility] [address] [address] [address] Rj Miller XR CSPINE 2_3 VIEWSon 2021 XR CSPINE 2_3 VIEWS EXAMINATION: XR CSPINE 2_3 VIEWS HISTORY: Neck pain ; posterior [...] JENNY TAPIA Date: 2022-09-24 07:20 Normal [facility] Basic Metabolic Panelon 04- Calcium [Mass/Vol] 8.7 mg/dL Normal 8.2-10.2 [facility] Comment on above: Performed By: #### B MP #### [facility] [address] Chloride [Moles/Vol] 107 mmol/L Normal 95-114 [facility] Comment on above: Performed By: #### B MP #### [facility] [address] [place] [address] [place] CO2 [Moles/Vol] 23.3 mmol/L Normal 22.0-30.0 [facility] Comment on above: Performed By: #### B MP #### [facility] [address] [id number] [place] Creatinine [Mass/Vol] 0.80 mg/dL Normal 0.64-1.27 [facility] Comment on above: Performed By: #### B MP #### [facility] [address] [place] [address] [place] Creatinine Clr Calc Pharmacy 101.34 Normal [facility] Comment on above: Result Comment: PERF ORMED BY: [place] [address] PATHOLOGIST DATA SOFTWARE ENGINEER MARGO MINOR M.D. Performed By: #### B MP #### [address] Estimated GFR ( David > 60 Normal [facility] Comment on above: Result Comment: GFR estimated reference range: According to KDOQI guidelines, <60 ml/min/1.73m2 is sufficient to diagnose a patient with chronic kidney disease. Performed By: #### B MP #### [address] Estimated GFR (Non- Am > 60 Normal [facility] Comment on above: Performed By: #### B MP #### [address] Glucose [Mass/Vol] 101 mg/dL High 70-100 [facility] Comment on above: Result Comment: [place] Glucose Reference Range is dependent on time and content of last meal. Glucose of more than 200 mg/dL in a nonstressed, ambulatory subject supports the diagnosis of Diabetes Mellitus. ADA recommended reference range Performed By: #### B MP #### [address] Potassium [Moles/Vol] 4.3 mmol/L Normal 3.5-5.1 [facility] Comment on above: Performed By: #### B MP #### [place] [address] [place] Sodium [Moles/Vol] 138 mmol/L Normal 136-146 [facility] Comment on above: Performed By: #### B MP #### [place] [address] [place] Urea nitrogen [Mass/Vol] 13 mg/dL Normal 9-23 [facility] Comment on above: Performed By: #### B MP #### [address] Calculi, Urinaryon 1 Ca Oxalate Dihydrate 60 % Normal . [facility] Comment on above: Performed By: #### C ALCULI #### [facility] , Ca Oxalate Monohydrate 30 % Normal . [facility] Comment on above: Performed By: #### C ALCULI #### [facility] , Color (U) Moy Normal . [facility] Comment on above: Performed By: #### C ALCULI #### [facility] , Comment: Normal . [facility] Comment on above: Result Comment: Liz guidry questions regarding Calculi Analysis contact [facility] at: [phone]. Performed By: #### C ALCULI #### [facility] , Composition Normal . [facility] Comment on above: Result Comment: Perc entage (Represents the % composition) Performed By: #### C ALCULI #### [facility] , Disclaimer: Normal . [facility] Comment on above: Result Comment: This test was developed and its performance characteristics determined by [facility]. It has not been cleared or approved by the Food and Drug Administration. Performed at: [facility] [address] [place], [place], [place] [id number] Supervisor Sign Shop: Anthony Grey MD, Phone: [phone] Performed By: #### C ALCULI #### [facility] , Hydroxyapatite 10 % Normal . [facility] Comment on above: Performed By: #### C ALCULI #### [facility] , Note Normal . [facility] Comment on above: Result Comment: Calc josafat report will follow via computer, mail or outsole molder delivery. PERFORMED BY: [facility] [address] [place] [address] PATHOLOGIST DATA SOFTWARE ENGINEER MARGO MINOR M.D. Performed By: #### C ALCULI #### [facility] , Photo Normal . [facility] Comment on above: Result Comment: Phot ograph will follow under a separate cover Performed By: #### C ALCULI #### [facility] , Size 6x6 Normal . [facility] Comment on above: Result Comment: Mult iple pieces received. Dimensions of the largest piece reported. Performed By: #### C ALCULI #### [facility] , Source Ureter Normal . [facility] Comment on above: Performed By: #### C ALCULI #### [facility] , Weight 110 Normal . [facility] Comment on above: Performed By: #### C ALCULI #### [facility] , ECG 12 lead ECGon 02-27-2021 ECG 12 lead ECG [facility] [place] [address] Electrocardiograph Report Signed Patient: Jam Toscano MR#: [id number] : 1965 Acct:[id number] Age/Sex: 55 / M ADM Date: 02/27/21 Loc: [place] Room: Type: [facility] Attending Dr: Rigo Gonzalez [...] DO 02/27/21 1110 Signed By: 02/27/21 1225 Normal [facility] Mikey 02-27-2021 L -------- -------- Specimen: [id number] Received: 02/27/21 Status: EMELI Pimentelaubree Num: [id number] Spec Type: Surgical Subm Dr: Rigo Gonzalez Jr, MD, FACS Tissues: A Urinary Calculus (URETHRAL STONE) Procedures: Level 1 Gross -------- Patient Age/Sex Location Account Attending Physician -------- Jam Toscano/M [place] [id number] Rigo Gonzalez Jr, MD, FACS -------- SPEC NUM: [id number] RECD: 02/27/21 STATUS: EMELI PIMENTELAubree NUM: [id number] RADHA: 02/27/21- SUBM DR: Rigo Gonzalez Jr, MD, FACS ENTERED: 02/27/21-[address]: SPEC TYPE: Surgical DEPT: S ORDERED: [...] Microscopic Description Gross examination only CPT Codes 13132 -------- -------- Specimen: [id number] Received: 02/27/21 Status: EMELI Dupree Num: [id number] Spec Type: Surgical Subm Dr: Rigo Gonzalez Jr, MD, FACS Tissues: A Urinary Calculus (URETHRAL STONE) Procedures: Level 1 Gross -------- Patient: Jam Toscano [id number] (Continued) -------- Signed (signature on file) Silvestre Poon MD 02/28/21 1428 Normal [facility] COVID-19 FRon 02-25-2021 SARS-CoV-2 (COVID-19) RNA BERNARDO+probe Ql (Unsp spec) Negative Normal Negative [facility] Comment on above: Order Comment: Healt hcare Worker?: N Result Comment: Refe rence: Negative Testing for SARS-CoV-2 by RT-PCR This test was developed and its performance characteristics determined by [employer]) and validated at the [facility]. This test has not been FDA cleared [...] is terminated or revoked sooner. PERFORMED BY: [address] [place] [place] [id number] PATHOLOGIST DATA SOFTWARE ENGINEER MARGO MINOR M.D. Performed By: #### C OVID-19 [facility] #### [address] COVID-19 Positive/Negativeon 02-25-2021 COVID-19 Positive/Negative Negative Negative [facility] Comment on above: Reference: NegativeT esting for SARS-CoV-2 by RT-PCRThis test was developed and its performance characteristics determined by [employer]) and validated at the [facility]. This test has not been FDA cleared [...] Otheron 02-25-2021 Coronavirus 2019 PCR Interp N/A [facility] XR ANKLE GENERAL 3V AP/LAT/O BL LTon 02-20-2021 [facility] DXA-AXIAL SKELETONon 020 [facility] Vital Signs Date Time Vital Sign Value Performing Clinician Faci lity 06-06-2025 08:17-0400 Body mass index (BMI) [Ratio] 26.81 kg/m2 Darrian Dubon MD Work Phone: [facility] 06-06-2025 08:17-0400 Body weight 75.3 kg Darrian Dubon MD Work Phone: [facility] 06-06-2025 08:17-0400 Diastolic blood pressure 62 mm[Hg] Darrian Dubon MD Work Phone: [facility] 06-06-2025 08:17-0400 Heart rate 66 /min Darrian Dubon MD Work Phone: [facility] 06-06-2025 08:17-0400 Systolic blood pressure 124 mm[Hg] Darrian Dubon MD Work Phone: [facility] 02-14-2025 07:10-0400 Body mass index (BMI) [Ratio] 28.12 kg/m2 Darrian Dubon MD Work Phone: [facility] 02-14-2025 07:10-0400 Body weight 79 kg Darrian Dubon MD Work Phone: [facility] 02-14-2025 07:10-0400 Diastolic blood pressure 74 mm[Hg] Darrian Dubon MD Work Phone: [facility] 02-14-2025 07:10-0400 Heart rate 66 /min Darrian Dubon MD Work Phone: [facility] 02-14-2025 07:10-0400 Systolic blood pressure 134 mm[Hg] Darrian Dubon MD Work Phone: [facility] 10-05-2024 07:15-0500 Body mass index (BMI) [Ratio] 27.66 kg/m2 Darrian Dubon MD Work Phone: [facility] 10-05-2024 07:15-0500 Body weight 77.7 kg Darrian Dubon MD Work Phone: [facility] 10-05-2024 07:15-0500 Diastolic blood pressure 76 mm[Hg] Darrian Dubon MD Work Phone: [facility] 10-05-2024 07:15-0500 Heart rate 66 /min Darrian Dubon MD Work Phone: [facility] 10-05-2024 07:15-0500 Systolic blood pressure 128 mm[Hg] Darrian Dubon MD Work Phone: [facility] 05-09-2024 10:05-0400 Diastolic blood pressure 78 mm[Hg] Rheu Maria De Jesus Work Phone: [facility] 05-09-2024 10:05-0400 Heart rate 78 /min Rheu Maria De Jesus Work Phone: [facility] 05-09-2024 10:05-0400 Systolic blood pressure 121 mm[Hg] Rheu Maria De Jesus Work Phone: [facility] 05-09-2024 09:08-0400 Body mass index (BMI) [Ratio] 27.16 kg/m2 Nidia Ascencio APRN.RISK AND 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 Work Phone: [facility] 05-09-2024 09:08-0400 Body temperature 98.4 [degF] Nidia Ascencio APRN.RISK AND 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 Work Phone: [facility] 05-09-2024 09:08-0400 Body weight 76.3 kg Nidia Ascencio APRN.RISK AND 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 Work Phone: [facility] 05-09-2024 09:08-0400 Diastolic blood pressure 79 mm[Hg] Nidia Ascencio APRN.RISK AND 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 Work Phone: [facility] 05-09-2024 09:08-0400 Heart rate 89 /min Nidia Ascencio APRN.RISK AND 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 Work Phone: [facility] 05-09-2024 09:08-0400 SaO2% (BldA) [Mass fraction] 97 % Nidia Ascencio APRN.RISK AND 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 Work Phone: [facility] 05-09-2024 09:08-0400 Systolic blood pressure 118 mm[Hg] Nidia Ascencio APRN.RISK AND 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 Work Phone: [facility] 03-14-2024 09:17-0400 Body mass index (BMI) [Ratio] 26.66 kg/m2 Nidia Ascencio APRN.RISK AND 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 Work Phone: [facility] 03-14-2024 09:17-0400 Body weight 74.9 kg Nidia Ascencio APRN.RISK AND 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 Work Phone: [facility] 03-14-2024 09:17-0400 Diastolic blood pressure 83 mm[Hg] Nidia Ascencio APRN.RISK AND 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 Work Phone: [facility] 03-14-2024 09:17-0400 Heart rate 97 /min Nidia Ascencio APRN.RISK AND 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 Work Phone: [facility] 03-14-2024 09:17-0400 SaO2% (BldA) [Mass fraction] 97 % Nidia Ascencio APRN.RISK AND 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 Work Phone: [facility] 03-14-2024 09:17-0400 Systolic blood pressure 121 mm[Hg] Nidia Ascencio APRN.CNP Work Phone: [facility] Encounters Encounter Date Encounter Type Care Provider Facility Start: 06-21-2025 ambulatory Salmon Talal Sarmini Facility:[facility] Start: 06-07-2025 End: 06-07-2025 ambulatory Salmon Talal Sarmini Facility:[facility] Start: 06-06-2025 End: 06-06-2025 Office outpatient visit 25 minutes Darrian Dubon [...] on health promotion and disease prevention Start: 06-06-2025 End: 06-06-2025 ambulatory [facility] Facility:[facility] Start: 06-06-2025 End: 06-06-2025 Subsequent hospital visit by physician [facility] Maria De Jesus Radiology Comment on above: Seropositive rheumat oid arthritis (HCC) [M05.9] Start: 05-31-2025 End: 05-31-2025 ambulatory Salmon Talal Sarmini Facility:[facility] Start: 05-23-2025 End: 05-23-2025 ambulatory JOSE L M Y Facility:[facility] Start: 05-22-2025 End: 05-22-2025 ambulatory Salmon Talal Sarmini Facility:[facility] Start: 05-11-2025 End: 05-11-2025 ambulatory Salmon Talal Sarmini Facility:[facility] Start: 05-03-2025 End: 05-03-2025 Christopher Veliz DO Work Phone: [facility] Start: 05-03-2025 End: 05-03-2025 Christopher Veliz DO Work Phone: [facility] Start: 05-03-2025 End: 05-03-2025 Office outpatient visit 15 minutes Jr. Bradly Veliz DO Work Phone: [facility] Comment on above: Pain and swelling of right knee (Primary Dx); History of total left knee replacement; History of total right knee replacement; Pain and swelling of left knee Start: 05-03-2025 End: 05-03-2025 ambulatory BrittneyBRADLY EVERETT Not Available Start: 03-29-2025 End: 03-29-2025 Bamboo flowsheet Jr. Bradly Veliz DO Work Phone: [facility] Start: 03-29-2025 End: 03-29-2025 Bamboo flowsheet Jr. Bradly Veliz DO Work Phone: [facility] Start: 03-29-2025 End: 03-29-2025 Office outpatient visit 15 minutes Jr. Bradly Veliz DO Work Phone: [facility] Comment on above: Pain of right hip (P rimary Dx); Primary osteoarthritis of right hip; Arthritis of knee, left; History of total hip replacement, right Start: 03-29-2025 End: 03-29-2025 ambulatory Brittney BRADLY Watters EVERETT Not Available Start: 02-14-2025 End: 02-14-[address] [facility] Start: 02-14-2025 End: 02-14-2025 Office outpatient [...] 12-14-2024 End: 12-14-2024 ambulatory Luis Antonio García Facility:[facility] Start: 11-21-2024 End: 11-23-2024 Telephone encounter Darrian Dubon MD Work Phone: Rheumatology Comment on above: Patient Update Start: 11-21-2024 End: 11-21-2024 ambulatory Marcin RAMÍREZ Facility:[facility] Start: 11-21-2024 End: 11-21-2024 ambulatory Marcin RAMÍREZ Facility:[facility] Start: 10-05-2024 End: 10-05-2024 ambulatory DARRIAN DUBON Facility:[facility] Start: 10-05-2024 End: 10-05-2024 Office outpatient [...] disease prevention Start: 06-13-2024 End: 06-13-2024 [facility] Start: 05-09-2024 End: 05-09-2024 ambulatory Geoffrey Ellis 2 Maria De Jesus Work Phone: Infusion Comment on above: Other osteoporosis w ithout current pathological fracture (Primary Dx) Start: 05-09-2024 End: 05-09-2024 Patient encounter procedure Nidia Ascencio APRN.RISK AND 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 Work Phone: Rheumatology Comment on above: 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); Vitamin D deficiency; Other osteoporosis without current pathological fracture Start: 05-03-2024 Telephone encounter Maria G slater MD Work Phone: Rheumatology Comment on above: Results (Labs) Start: 04-11-2024 Telephone encounter Nidia retana APRN.RISK AND 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 Work Phone: Rheumatology Comment on above: Patient Update Start: 03-14-2024 End: 03-14-2024 Subsequent hospital visit by physician Job [facility] Radiology Comment on above: Rheumatoid arthritis 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) [M05.79] Start: 03-14-2024 End: 03-14-2024 Patient encounter procedure Nidia Villalobos Silva MIR.RISK AND 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 Work Phone: Rheumatology Comment on above: 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); Vitamin D deficiency; Other osteoporosis without current pathological fracture; Encounter for medication review and counseling Start: 02-11-2024 Telephone encounter Nidia Griselda Khadra retana APRN.RISK AND 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 Work Phone: Rheumatology Start: 05-04-2023 Telephone encounter Nidia Griselda Khadra retana APRN.RISK AND 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 Work Phone: Rheumatology Comment on above: Patient Update Start: 05-04-2023 End: 05-04-2023 ambulatory Nidia Griselda Silva MIR.RISK AND 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 Work Phone: Rheumatology Comment on above: Rheumatoid [...] End: 05-04-2023 Telemedicine consultation with patient Nidia Ascencio ADEOLA.RISK AND 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 Work Phone: [facility] Start: 03-02-2023 End: 03-02-2023 ambulatory Nidia Gavirialainey MIR.RISK AND 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 Work Phone: Rheumatology Comment on above: 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); Encounter to discuss test results; Counseling on health promotion and disease prevention; Ulcerative pancolitis (HCC); Other osteoporosis without current pathological fracture Start: 03-02-2023 End: 03-02-2023 Telemedicine consultation with patient Nidia Gavirialainey MIR.RISK AND 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 Work Phone: [facility] Start: 02-11-2023 End: 02-12-[address] JOSE L LACKEY . Facility: Start: 01-14-2023 Telephone encounter Nidia retana APRN.RISK AND 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 Work Phone: Rheumatology Comment on above: Outside Lab Results (Vit D ) Start: 12-29-2022 End: 12-29-2022 ambulatory Nidia Ascencio SYSTEMS DESIGNER.RISK AND 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 Work Phone: Rheumatology Comment on above: 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); Vitamin D deficiency; Encounter to discuss test results; Encounter for medication review and counseling; Counseling on health promotion and disease prevention; Other osteoporosis without current pathological fracture Start: 12-29-2022 End: 12-29-2022 Telemedicine consultation with patient Nidia Ascencio APRN.RISK AND 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 Work Phone: [facility] Start: 11-24-2022 End: 11-25-[address] JOSE L LACKEY . Facility:[facility] Start: 11-06-2022 End: 11-07-[address] JOSE L LACKEY . Facility:[facility] Start: 09-24-2022 End: 09-24-[address] JOSE L LACKEY . Facility:[facility] Start: 09-23-2022 End: 09-23-2022 Subsequent hospital visit by physician [facility] De [facility] Radiology Comment on above: Other osteoporosis w ithout current pathological fracture [M81.8] Start: 02-10-2022 Telephone encounter Darrian Florez MD Work Phone: Rheumatology Comment on above: Results Start: 02-25-2021 End: 02-25-2021 Patient encounter procedure Rigo Gonzalez -Pre-Surgical Testing Start: 02-20-2021 End: 02-20-2021 Subsequent hospital visit by physician Xr [facility] Radiology Comment on above: Seropositive rheumat oid arthritis (HCC) [M05.9] Start: 08-22-2020 End: 08-22-2020 Subsequent hospital visit by physician [facility] De [facility] Radiology Comment on above: Rheumatoid arthritis 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) [M05.79] Procedures Date Procedure Procedure Detail Performing Clinician Start: 05-03-2025 Radiologic examinati on knee 1/2 views Jr. Bradly Veliz DO Work Phone: Start: 05-03-2025 Radiologic examinati on knee 1/2 views Jr. Bradly Veliz DO Work Phone: Start: 03-29-2025 Radex hip unilateral with pelvis 2-3 views Jr. Bradly Veliz DO Work Phone: Start: 03-14-2024 Radex hand minimum 3 views Nidia Ascencio SYSTEMS DESIGNER.RISK AND 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 Work Phone: Start: 01-12-2023 VITAMIN D 25 HYDROXY Am y Griselda Ascencio SYSTEMS DESIGNER.RISK AND 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 Work Phone: Start: 09-23-2022 Dxa bone density nancy dy 1/> sites axial natalia Dubon MD Work Phone: Start: 02-20-2021 Radex ankle complete minimum 3 views Darrian Dubon MD Work Phone: Start: 08-22-2020 Dxa bone density nancy dy 1/> sites axial natalia Dubon MD Work Phone: Start: 02-10-2019 Adult depression scr eening assessment Darrian Dubon MD Work Phone: Plan of Treatment Date Care Activity Detail Author Start: 12-01-2026 Diabetes Screening Diabetes Screenin g [facility] Start: 05-02-2026 End: 05-02-2026 Patient encounter procedure 05/02/2026 10:00 AM EDT Office Visit [facility] [address] [place] [id number] Jr. Bradly Veliz, DO [address] [place] [address] [facility] Start: 03-28-2026 End: 03-28-2026 Patient encounter procedure 03/28/2026 10:00 AM EDT Office Visit [facility] [address] [place] [id number] Jr. Bradly Veliz, DO [address] [place] [address] [facility] Start: 10-31-2025 End: 10-31-2025 Patient encounter procedure 10/31/2025 10:00 AM EST Office Visit [facility] [address] [facility] [place] [address] Darrian Dubon MD [address] [place] [address] Please also offer another apt later in 2024 or early 2025 (please use 30 min slot) for RA/OP Rheumatology Comment on above: Please also offer an other apt later in 2024 or early 2025 (please use 30 min slot) for RA/OP Start: 07-17-2025 Influenza vaccination [facility] Start: 06-06-2025 End: 06-06-2025 Patient encounter procedure Radiology Comment on above: Seropositive rheumat oid arthritis (HCC) [M05.9] Return for May 2025 for RA and OP and review of DXA. Start: 05-23-2025 End: 05-23-2025 ambulatory 05/23/2025 8:00 AM EDT Results Only [facility] [address] [place] [address] [place] [address] labs [facility] Comment on above: labs Start: 05-16-2025 End: 08-15-2025 25-hydroxyvitamin D3 [Mass/volume] in Serum or Plasma VITAMIN D 25 HYDROXY Lab Routine Seropositive rheumatoid arthritis (HCC) Ulcerative pancolitis (HCC) Other osteoporosis without current pathological fracture History of bisphosphonate therapy Expected: 05/16/2025, Expires: 08/15/2025 [facility] Comment on above: Expected: 05/16/2025 , Expires: 08/15/2025 Start: 05-16-2025 End: 08-15-2025 C reactive protein [Mass/volume] in Serum or Plasma C-REACTIVE PROTEIN Lab Routine Seropositive rheumatoid arthritis (HCC) Ulcerative pancolitis (HCC) Expected: 05/16/2025, Expires: 08/15/2025 [facility] Comment on above: Expected: 05/16/2025 , Expires: 08/15/2025 Start: 05-16-2025 End: 08-15-2025 CBC W Auto Differential panel - Blood COMPLETE BLOOD COUNT AND DIFFERENTIAL Lab Routine Seropositive rheumatoid arthritis (HCC) Rheumatoid arthritis 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) On sulfasalazine therapy Ulcerative pancolitis (HCC) Expected: 05/16/2025, Expires: 08/15/2025 [facility] Work Phone: Comment on above: Expected: 05/16/2025 , Expires: 08/15/2025 Start: 05-16-2025 End: 08-15-2025 Collagen crosslinked C-telopeptide [Mass/volume] in Serum or Plasma C TELOPEPTIDE, BETA Lab Routine Other osteoporosis without current pathological fracture History of bisphosphonate therapy Expected: 05/16/2025, Expires: 08/15/2025 [facility] Comment on above: Expected: 05/16/2025 , Expires: 08/15/2025 Start: 05-16-2025 End: 08-15-2025 Renal function 2000 panel - Serum or Plasma RENAL FUNCTION PANEL Lab Routine Other osteoporosis without current pathological fracture History of bisphosphonate therapy Expected: 05/16/2025, Expires: 08/15/2025 [facility] Comment on above: Expected: 05/16/2025 , Expires: 08/15/2025 Start: 05-03-2025 End: 05-03-2025 Patient encounter procedure [facility] Comment on above: Arrived Start: 03-29-2025 End: 03-29-2025 Patient encounter procedure 03/29/2025 10:00 AM EDT Office Visit [facility] [address] [facility] [address] [place] [address] Jr. Bradly Veliz C, DO [address] [place] [address] Arrived [facility] Comment on above: Arrived Start: 02-14-2025 End: 02-14-2025 Patient encounter procedure 02/14/2025 7:20 AM EDT Office Visit Rheumatology [address] [place], [place] [id number] Darrian Dubon MD [address] [facility] [place] [address] Dubon Rheumatology Comment on above: future with dr. Vince melton Start: 11-16-2024 Medicare Advantage Annual Wellness Visit Medicare Advantage Annual Wellness Visit [facility] Start: 10-05-2024 End: 10-05-2024 Patient encounter procedure 10/05/2024 7:20 AM EST Office Visit Rheumatology [address] [facility] [place] [address] Darrian Dubon MD [address] [facility] [place] [place] [address] RA Rheumatology Comment on above: RA Start: 09-16-2024 End: 12-16-2024 25-hydroxyvitamin D3 [Mass/volume] in Serum or Plasma VITAMIN D 25 HYDROXY Lab Routine Vitamin D deficiency Other osteoporosis without current pathological fracture Expected: 09/16/2024 (Approximate), Expires: 12/16/2024 [facility] Comment on above: Expected: 09/16/2024 (Approximate), Expires: 12/16/2024 Start: 09-16-2024 End: 12-16-2024 C reactive protein [Mass/volume] in Serum or Plasma C-REACTIVE PROTEIN Lab Routine Rheumatoid arthritis 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) Expected: 09/16/2024 (Approximate), Expires: 12/16/2024 [facility] Work Phone: Comment on above: Expected: 09/16/2024 (Approximate), Expires: 12/16/2024 Start: 09-16-2024 End: 12-16-2024 Erythrocyte sedimentation rate SEDIMENTATION RATE, WESTERGREN Lab Routine Rheumatoid arthritis 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) Expected: 09/16/2024 (Approximate), Expires: 12/16/2024 [facility] Comment on above: Expected: 09/16/2024 (Approximate), Expires: 12/16/2024 Start: 09-16-2024 End: 12-16-2024 Renal function 2000 panel - Serum or Plasma RENAL FUNCTION PANEL Lab Routine Rheumatoid arthritis involving multiple sites with positive rheumatoid factor (HCC) Other osteoporosis without current pathological fracture Expected: 09/16/2024 (Approximate), Expires: 12/16/2024 [facility] Comment on above: Expected: 09/16/2024 (Approximate), Expires: 12/16/2024 Start: 07-17-2024 Influenza vaccination [facility] Start: 05-09-2024 End: 05-09-2024 ambulatory 05/09/2024 9:30 AM EDT [facility] [address] [place] [address] Return labs in 1 month, for reclast and ov in 1-2 months after labs Infusion Comment on above: Return labs in 1 mon , for reclast and ov in 1-2 months after labs Start: 05-09-2024 End: 05-09-2024 Patient encounter procedure 05/09/2024 9:00 AM EDT Office Visit Rheumatology [address] [facility] [place] [address] Nidia Ascencio APRN.RISK AND 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 [address] [facility] [place] [address] Return labs in 1 month, for reclast and ov in 1-2 months after labs Rheumatology Comment on above: Return labs in Thu, for reclast and ov in 1-2 months after labs Start: 2024 RSV Vaccine (1 - 1-d ose 60+ series) RSV Vaccine (1 - 1-dose 60+ series) [facility] Start: 2024 RSV Vaccine (1 - Ris k 60-74 years 1-dose series) RSV Vaccine (1 - Risk 60-74 years 1-dose series) [facility] Start: 04-13-2024 End: 07-13-2024 25-hydroxyvitamin D3 [Mass/volume] in Serum or Plasma VITAMIN D 25 HYDROXY Lab Routine Rheumatoid arthritis involving multiple sites with positive rheumatoid factor (HCC) Vitamin D deficiency Expected: 04/13/2024 (Approximate), Expires: 07/13/2024 [facility] Comment on above: Expected: 04/13/2024 (Approximate), Expires: 07/13/2024 Start: 04-13-2024 End: 07-13-2024 C reactive protein [Mass/volume] in Serum or Plasma C-REACTIVE PROTEIN Lab Routine Rheumatoid arthritis involving multiple sites with positive rheumatoid factor (HCC) Expected: 04/13/2024 (Approximate), Expires: 07/13/2024 [facility] Comment on above: Expected: 04/13/2024 (Approximate), Expires: 07/13/2024 Start: 04-13-2024 End: 07-13-2024 Erythrocyte sedimentation rate SEDIMENTATION RATE, WESTERGREN Lab Routine Rheumatoid arthritis involving multiple sites with positive rheumatoid factor (HCC) Expected: 04/13/2024 (Approximate), Expires: 07/13/2024 [facility] Comment on above: Expected: 04/13/2024 (Approximate), Expires: 07/13/2024 Start: 04-13-2024 End: 07-13-2024 Renal function 2000 panel - Serum or Plasma RENAL FUNCTION PANEL Lab Routine Rheumatoid arthritis involving multiple sites with positive rheumatoid factor (HCC) Expected: 04/13/2024 (Approximate), Expires: 07/13/2024 [facility] Work Phone: Comment on above: Expected: 04/13/2024 (Approximate), Expires: 07/13/2024 Start: 04-13-2024 End: 04-13-2025 XR Hand - bilateral PA and Lateral and Oblique XR HAND GENERAL 3V PA/LAT/OBL BILATERAL Radiology Routine Rheumatoid arthritis involving multiple sites with positive rheumatoid factor (HCC) Expected: 04/13/2024 (Approximate), Expires: 04/13/2025 [facility] Comment on above: Expected: 04/13/2024 (Approximate), Expires: 04/13/2025 Start: 11-16-2023 Behavioral Health Screening Behavioral Health Screening [facility] Start: 11-16-2023 Depression Assessment Depression Ass essment [facility] Start: 08-22-2023 DIABETES SCREEN DIABETES SCREEN [facility] Start: 07-17-2023 Influenza vaccination [facility] Start: 07-04-2023 End: 09-03-2023 25-hydroxyvitamin D3 [Mass/volume] in Serum or Plasma VITAMIN D 25 HYDROXY Lab Routine Other osteoporosis without current pathological fracture Expected: 07/04/2023 (Approximate), Expires: 09/03/2023 [facility] Work Phone: Comment on above: Expected: 07/04/2023 (Approximate), Expires: 09/03/2023 Start: 07-04-2023 End: 09-03-2023 MONOCLONAL PROT UR W/INTERP MONOCLONAL PROT UR W/INTERP Lab Routine Elevated serum immunoglobulin free light chain level Expected: 07/04/2023 (Approximate), Expires: 09/03/2023 [facility] Work Phone: Comment on above: Expected: 07/04/2023 (Approximate), Expires: 09/03/2023 Start: 07-04-2023 End: 09-03-2023 Renal function 2000 panel - Serum or Plasma RENAL FUNCTION PANEL Lab Routine Other osteoporosis without current pathological fracture Expected: 07/04/2023 (Approximate), Expires: 09/03/2023 [facility] Work Phone: Comment on above: Expected: 07/04/2023 (Approximate), Expires: 09/03/2023 Start: 12-29-2022 End: 02-28-2023 25-hydroxyvitamin D3 [Mass/volume] in Serum or Plasma VITAMIN D 25 HYDROXY Lab Routine Vitamin D deficiency Expected: 12/29/2022, Expires: 02/28/2023 [facility] Work Phone: Comment on above: Expected: 12/29/2022 , Expires: 02/28/2023 Start: 11-16-2022 DEPRESSION ASSESSMENT DEPRESSION ASS ESSMENT [facility] Start: 07-17-2022 Influenza vaccination INFLUENZA (#1) [facility] Start: 07-17-2021 Influenza vaccination INFLUENZA (#1) [facility] Start: 04-15-2021 COVID-19 VACCINE (2 - Starr risk 3-dose series) COVID-19 VACCINE (2 - Starr risk 3-dose series) [facility] Start: 04-15-2021 COVID-19 VACCINE (2 - Starr risk series) COVID-19 VACCINE (2 - Starr risk series) [facility] Start: 05-03-2020 PNEUMOCOCCAL (3 - PPSV23 if available, else PCV20) PNEUMOCOCCAL (3 - PPSV23 if available, else PCV20) [facility] Start: 05-03-2020 PNEUMOCOCCAL (3 - PPSV23 or PCV20) PNEUMOCOCCAL (3 - PPSV23 or PCV20) [facility] Start: 05-03-2020 Pneumococcal vaccination Pneumococcal Vaccine (3 of 3 - PPSV23 or PCV20) [facility] Start: 05-03-2020 Pneumococcal Vaccine : 50+ (3 of 3 - PPSV23, PCV20 or PCV21) Pneumococcal Vaccine: 50+ (3 of 3 - PPSV23, PCV20 or PCV21) [facility] Start: 02-11-2020 Adult depression screening assessment DEPRESSION SCREENING [facility] Start: 2019 PROSTATE CANCER SCREENING DISCUSSION PROSTATE CANCER SCREENING DISCUSSION [facility] Start: 2019 Prostate specific antigen measurement Prostate Cancer Screening Discussion [facility] Start: 2014 SHINGRIX VACCINE (1 of 2) SHINGRIX VACCINE (1 of 2) [facility] Start: 2009 COLOGUARD (FIT-DNA) COLOGUARD (FIT-D NA) [facility] Start: 2009 Colonoscopy COLONOSCOPY [facility] Start: 2009 COLORECTAL CANCER SCREENING COLORECTAL CANCER SCREENING [facility] Start: [address] COLONOGRAPHY [facility] Start: 2009 FECAL OCCULT BLOOD FECAL OCCULT BLOO D [facility] Start: 2009 Prostate specific antigen measurement Prostate Cancer Screening Discussion [facility] Start: 2009 Screening for malign ant neoplasm of colon [facility] Start: [address] [facility] Start: 1999 Lipid panel Lipid Screening [facility] Start: 1999 LIPID SCREEN LIPID SCREEN [facility] Start: 1983 SHINGRIX VACCINE (1 of 2) SHINGRIX VACCINE (1 of 2) [facility] Start: 1983 Urine microalbumin profile [facility] Start: 1982 Anxiety Screening Anxiety Screening [facility] Start: 1982 Depression Screening Depression Scre ening [facility] Start: 1982 HIV SCREENING HIV SCREENING [facility] Start: 1982 HIV screening HIV Screening [facility] Start: 1982 MMR Vaccine (1 of 2 - Risk 2-dose series) MMR Vaccine (1 of 2 - Risk 2-dose series) [facility] Start: 1974 Meningococcal B Vaccine: Consider Based On Risk (1 of 4 - Increased Risk) Meningococcal B Vaccine: Consider Based On Risk (1 of 4 - Increased Risk) [facility] Start: 1964 Screening for malign ant neoplasm of colon [facility] End: 11-04-2025 BD DXA TRABECULAR BONE SCORE (TBS) BD DXA TRABECULAR BONE SCORE (TBS) Radiology Routine Seropositive rheumatoid arthritis (HCC) Ulcerative pancolitis (HCC) Other osteoporosis without current pathological fracture History of bisphosphonate therapy 1 Occurrences starting 10/05/2024 until 11/04/2025 [facility] Comment on above: 1 Occurrences starti ng 10/05/2024 until 11/04/2025 BD DXA TRABECULAR LIMA NE SCORE (TBS) BD DXA TRABECULAR BONE SCORE (TBS) Radiology Routine Seropositive rheumatoid arthritis (HCC) Ulcerative pancolitis (HCC) Other osteoporosis without current pathological fracture History of bisphosphonate therapy 06/06/2025 8:13 AM EDT [facility] End: 11-04-2025 DXA Skeletal system.axial Views for bone density DXA-AXIAL SKELETON Radiology Routine Seropositive rheumatoid arthritis (HCC) Ulcerative pancolitis (HCC) Other osteoporosis without current pathological fracture History of bisphosphonate therapy 1 Occurrences starting 10/05/2024 until 11/04/2025 [facility] Comment on above: 1 Occurrences starti ng 10/05/2024 until 11/04/2025 DXA Skeletal system.axial Views for bone density DXA-AXIAL SKELETON Radiology Routine Seropositive rheumatoid arthritis (HCC) Ulcerative pancolitis (HCC) Other osteoporosis without current pathological fracture History of bisphosphonate therapy 06/06/2025 8:13 AM EDT [facility] Work Phone: [facility] Immunizations Immunization Date Immunization Notes Care Provider Vito diaz 10-11-2024 influenza virus vacc ine, unspecified formulation Bone Maria De Jesus [facility] 06-09-2022 zoster vaccine recombinant Nidia Ascencio SYSTEMS DESIGNER.RISK AND 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 Work Phone: [facility] 03-17-2022 zoster vaccine recombinant Nidia Ascencio SYSTEMS DESIGNER.RISK AND 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 Work Phone: [facility] 09-27-2020 Influenza, injectabl e, Madin [place] Canine Kidney, preservative free, quadrivalent Nidia Ascencio SYSTEMS DESIGNER.RISK AND 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 Work Phone: [facility] 09-27-2020 influenza virus vacc ine, unspecified formulation Nidia Ascencio SYSTEMS DESIGNER.RISK AND 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 Work Phone: [facility] 10-28-2019 Influenza, injectabl e, Madin [place] Canine Kidney, quadrivalent with preservative Darrian Dubon MD Work Phone: [facility] 08-29-2019 influenza, injectabl e, quadrivalent, preservative free Nidia Ascencio DANYEL Work Phone: [facility] 08-15-2016 influenza, injectabl e, quadrivalent, preservative free Darrian Dubon MD Work Phone: [facility] 12-08-2015 hepatitis A and hepa titis B vaccine Darrian Dubon MD Work Phone: [facility] 11-01-2015 pneumococcal conjuga te vaccine, 13 valent Darrian Dubon MD Work Phone: [facility] 07-31-2015 influenza, seasonal, injectable, preservative free Darrian Dubon MD Work Phone: [facility] 05-31-2015 hepatitis A and hepa titis B vaccine Darrian Dubon MD Work Phone: [facility] 05-03-2015 hepatitis A and hepa titis B vaccine Darrian Dubon MD Work Phone: [facility] 05-03-2015 pneumococcal polysaccharide vaccine, 23 valent Darrian Dubon MD Work Phone: [facility] Payers Date Payer Category Payer Medicare DEVOTED MEDICARE DEVOTED HEALTH [id number] 2021-Present [phone] [address] [place] [address] [facility] [id number] 2021 Medicare (Managed Care) DEVOTED HEALTH [id number] 2021 Private Health Insurance [facility] HMO [id number] 2021 Unknown [id number] 2011 Medicare [id number] 1964 Unknown [id number] 2.16.840.1.414931.3.579 .2.593 1964 Unknown [id number] 2.16.840.1.138286.3.579 .2.593 1964 Unknown [id number] 2.16.840.1.472534.3.579 .2.593 1964 Unknown [id number] 2.16.840.1.844175.3.579 .2.593 1964 Unknown [id number] 2.16.840.1.747187.3.579 .2.727 1964 Unknown [id number] 2.16.840.1.618521.3.579 .2.1259 1964 Unknown [id number] 2.16.840.1.794998.3.579 .2.1259 1964 Unknown [id number] 2.16.840.1.727167.3.579 .2.1258 1964 Unknown [id number] 2.16.840.1.188448.3.579 .2.1258 1964 Unknown [id number] 2.16.840.1.167197.3.579 .2 1964 Unknown [id number] 2.16.840.1.661571.3.579 .2 1964 Unknown [id number] ..840.1.659254.3.579 .2 1964 Unknown [id number] ..840.1.722676.3.579 .2 1964 Unknown [id number] ..840.1.839471.3.579 .1964 Unknown [id number] ..840.1.302049.3.579 .2 1964 Unknown [id number] .840.1.486888.3.579 .2 1964 Unknown [id number] ..840.1.314525.3.579 .2 1964 Unknown [id number] ..840.1.707073.3.579 .2 1964 Unknown [id number] .16.840.1.550291.3.579 .2 1964 Unknown [id number] .840.1.257961.3.579 .2 1964 Unknown [id number] .16.840.1.605786.3.579 .2 1964 Unknown [id number] 1965 Unknown [id number] Private Health Insurance Self Pay [id number] Self-pay Self Pay [id number] Social History Date Type Detail Facility Tobacco smoking stat us [facility] Unknown if ever smoked [facility] Start: 1965 Sex Assigned At Male [facility] Start: 01-24-2020 End: 12-01-2023 Tobacco smoking status NHIS Ex-smoker [facility] Start: 01-24-2020 End: 12-01-2023 Tobacco use and exposure Smokeless tobacco non-user [facility] Start: 02-20-2021 End: 05-09-2024 Alcohol intake Lifetime non-drinker (finding) [facility] Start: 01-24-2020 History SDOH Alcohol Frequency 1 [facility] Start: 01-24-2020 End: 12-01-2023 Tobacco Comment quit in 2011 [facility] Start: 1965 Sex Assigned At Not on file [facility] Start: 01-19-2022 End: 01-29-2022 Exposure to SARS-CoV-2 (event) Unable to assess [facility] End: 11-16-2011 History of tobacco use Current smoker [facility] Start: 01-24-2020 End: 05-04-2023 History of Social function [facility] Start: 01-24-2020 End: 05-04-2023 Alcohol Use Disorder Identification Test - Consumption [AUDIT-C] [facility] How often to you hav e a drink containing alcohol? Never [facility] Average Number of Drinks Not on file [facility] Start: 07-23-2020 End: 02-20-2021 Exposure to SARS-CoV-2 (event) Not sure [facility] End: 11-16-2011 History of tobacco use Cigarette Smoker [facility] Start: 04-21-2023 Tobacco use and exposure Former smokeless tobacco user [facility] Start: 06-16-2023 End: 05-03-2025 Alcoholic beverage intake Ex-drinker (finding) [facility] Start: 04-06-2023 Alcohol Comment Caffeine: more than 4 cups per day [facility] Healthcare Goals Date Patient Goal Desired Activity /State Clinical Notes 08-22-2020 to 06-07-2025 Patient InstructionsAl-Darrian Valente MD - 06/06/2025 8:30 AM Blayne Anguiano, RT(R) - 06/06/2025 7:45 AM EDTJr. Bradly Veliz, DO - 05/03/2025 10:00 AM EDTPatient Instructions Note Date & Type Note Facility 06-07-2025 Note Nurse Consultation N ote Assessment/Plan patient tolerated real capsule endo, she verified understanding of instructions. Medications atorvastatin 20 mg Tab, 20 mg= 1 tab(s), Oral, Daily cholecalciferol 5000 intl units oral capsule, Oral, Daily Entyvio Pen 108 mg/0.68 mL subcutaneous solution, 108 mg, SubCutaneous, q2wk ferrous sulfate 325 mg oral enteric coated tablet, Oral, BID folic acid 1 mg Tab, 1 mg= 1 tab(s), Oral, Daily lisinopril, 10 mg, Oral, Daily meloxicam 15 mg Tab, Oral, Daily methotrexate 2.5 mg Tab, 10 mg= 4 tab(s), Oral, q7day Multivitamins and Minerals, 1 tab, Oral, Daily omeprazole 40 mg Cap-DR, 40 mg= 1 cap(s), Oral, Daily Potassium 10 MEQ capsule, 0 Reglan 10 mg Tab, 10 mg= 1 tab(s), Oral, QIDACHS sulfasalazine, 500 mg, Oral, QID Zetia 10 mg Tab, 10 mg= 1 tab(s), Oral, Daily Allergies No Known Allergies No Known Medication Allergies Immunizations Vaccine Date Status Comments influenza virus vaccine, inactivated 08/2022 Recorded influenza virus vaccine, inactivated - Not Given Patient Refuses zoster vaccine, inactivated 06/09/2022 Recorded zoster vaccine, inactivated 03/17/2022 Recorded influenza virus vaccine, inactivated - Not Given Patient Refuses SARS-CoV-2 (COVID-19) Ad26 vaccine 03/18/2021 Recorded 2022-07-22: TPV50 SARS-CoV-2 (COVID-19) mRNA-1273 vaccine 03/2021 Recorded Josi influenza virus vaccine, inactivated 09/27/2020 Recorded influenza virus vaccine, inactivated 09/2020 Recorded influenza virus vaccine, inactivated 10/28/2019 Recorded influenza virus vaccine, inactivated 08/29/2019 Recorded influenza virus vaccine, inactivated 08/15/2016 Recorded hepatitis A-hepatitis B vaccine 12/08/2015 Recorded pneumococcal 13-valent vaccine 11/01/2015 Recorded influenza virus vaccine, inactivated 07/31/2015 Recorded hepatitis A-hepatitis B vaccine 05/31/2015 Recorded pneumococcal 23-valent vaccine 05/03/2015 Recorded hepatitis A-hepatitis B vaccine 05/03/2015 Recorded [facility] 06-06-2025 Instructions Darrian Dubon MD - 06/06/2025 8:46 AM EDT -PLEASE NOTE THAT WE REVIEW ALL YOUR TEST RESULTS AT YOUR NEXT FOLLOW UP VISIT WITH YOU. IF ANY ABNORMAL LAB REQUIRES SOONER ATTENTION, WE WILL CONTACT YOU. -If you have signed up on Quietly, we will release your test results through Quietly. I wish you the best of health [...] with your Primary care physician, with Dr. Lackey. You can continue following with Dr. Lackey for your RA. I remain available if Dr. Lackey needs to call me to discuss your RA. Continue following with your Traveling Missionary. Great work on your bone density. You [...] tofu, soymilk... Your Primary care physician, Dr. Lackey, can recheck that with your next labs. [...] week. You SHOULD NOT break up the dose over more than 1 day. You must take your folic acid once daily 7 days a week (alternatively if can be taken for 6 days a week, except the day you take your methotrexate). Because methotrexate can potentially suppress your bone marrow or cause some liver toxicity it is important that you check your blood tests every month for the first 3 [...] can divide the dose to morning and evening if you tolerate it better that way. This medication should be held at times of infections, until the infection is cleared. *Please continue to AVOID ALCOHOL Methotrexate risks as reviewed prevoiously: Stomatitis(oral sores), hair loss, nausea/vomiting, rash, increased risk of infection, risk of liver damage/cirrhosis, cytopenias(low blood counts), pneumonitis, reported associated risk with lymphoma. Additional information on methotrexate available at: The [place] Rhe[employer] website : https://www.rheumatology.org/I-Am-Mikal/Ernesto wyatt-Caregiver/Treatments/Methotrexat a-Pofleemlta-Appwvwd and The [facility] website : https://my.[facility]/health/ drugs/33802-cbmvgjmodzkd - Please take your vitamin D with [...] track your nutrition and calcium intake on www.MyRepublic.Restorando This provides macro and micronutrient intake and requirements. - You can track your calcium intake on Getting-inometer.Restorando or any other calcium tracker of your [...] youtube and copy and paste this link: https://youPlairu.be/[email or web address] This is done by a Physical Medicine and Rehab doctor who is a biblical studies professor in [employer]. She completed a PhD at the [employer] [facility] [employer]. I hope you find it helpful. Please take precautions and start gradual when starting a new exercise program. - I recommend reviewing the exercises from the LIFTMOR study. If you are interested in considering these strength training exercises you will need to work with a Information Services Consultant or Physical Therapist, as they need to be supervised for safety and to ensure the exercises are performed correctly to avoid injury. This is the reference of the article: For Men: -Twin Nick, Chetan RENNER, Shankar WICK. The LIFTMOR-M (Lifting Intervention For Training Muscle and Osteoporosis Rehabilitation for Men) trial: protocol for a semirandomised controlled trial of supervised targeted exercise to reduce risk of osteoporotic fracture in older men with low bone mass. BMJ Open. 2017 Apr 12;7(6):z922919. doi: 10.1136/ntfhlzi-9303-644003. PMID: 74972601; PMCID: [id number]. -Twin Nick, Selvin Watters, Chetan RENNER, Rosa Maria MONTANO, Shankar WICK. A Comparison of Bone-Targeted Exercise Strategies to Reduce Fracture Risk in Middle-Aged and Older Men with Osteopenia and Osteoporosis: LIFTMOR-M Semi-Randomized Controlled Trial. J Bone Independence Res. 2020 Jun;35(8):6712-3712. doi: 10.1002/jbmr.4008. Epub 2019Feb 12. PMID: 98975422. Information regarding Whole Body Vibration Plate: You can review this article. Ref: Aparicio RDJ, Aparicio RG, Aparicio LC, Arlene SD, S -Ander LAU, Aníbal Villalobos. Effectiveness of whole-body vibration on bone mineral density in postmenopausal women: a systematic review and meta-analysis of randomized controlled trials. Osteoporos Int. 2022;34(1):29-52. doi: 10.1007/q08139-045-21232-t. Epub 2021Sep 09. PMID: 02472907. Their conclusion: only high frequency associated with low magnitude and high cumulative dose with low magnitude showed high-quality evidence. At this time, considering the high quality of evidence, it is possible to recommend WBV using high frequency (? 30 Hz), low magnitude (? 0.3 g), and high cumulative dose (? 7000 min) to improve lumbar spine aBMD in postmenopausal women. - Stress can lead to bone loss. [...] hazelnuts, legumes, soybeans and other beans) - [place] (potatoes, avocados, almonds, peanuts) - Chromium (broccoli, [...] health? Ther Adv Musculoskelet Dis. 2010;3(6):293-300. doi: 10.1177/1785950J99642307. PMID: 96324166; PMCID: [id number]. -SUDHEER Carrillo., NYLA Dodson., GHAZAL Flores. et al. Soy isoflavone intake inhibits bone resorption and stimulates bone formation in menopausal women: meta-analysis of randomized controlled trials. Eur J Clin Nutr 62, 155-161 (2007). https://doi.org/10.1038/sj.ejcn.966603 8 -Clyde Rosa, Trisha Lara, Bar De Leon et al. Isoflavone intervention and its impact on bone mineral density in postmenopausal women: a systematic review and meta-analysis of randomized controlled trials. Osteoporos Int (2022). https://doi.org/10.1007/c46492-953-666 44-y -Jack Finch, Trisha Lara, Clyde Grant et al. Effects of isoflavone interventions on bone mineral density in postmenopausal women: a systematic review and meta-analysis of randomized controlled trials. Osteoporos Int 31, 0091-4984 (2020). https://doi.org/10.1007/n07686-399-024 76-z - Benefits of consuming soy in whole foods are listed in this article at the PCR website: https://www.pcr.org/good-nutrition/nu trition-information/hnd-vsm-edxtls - Prunes have been reported to help with bone density and inflammation, and are also beneficial for the gut microbiome and constipation. -The Prune Study article: Perrin, Sivakumar ALDANA, Jordy NI, Edouard H, Flor KJ, Trey C, Praveena MG, Nakvivi CH, Stewart C. Prunes preserve hip bone mineral density in a 12-month randomized controlled trial in postmenopausal women: the Prune Study. Am J Clin Nutr. 2021Aug 21;116(4):897-910. doi: 10.1093/ajcn/osre313. PMID: 48684115. -Benefit to bone density and inflammation: Hebert WYMAN, Perrin, Golry SOLARES, Sivakumar ALDANA, Trey CUBA. The Role of Prunes in Modulating Inflammatory Pathways to Improve Bone Health in Postmenopausal Women. Adv Nutr. 2021Aug 17;13(5):7464-9039. doi: 10.1093/advances/qmin310. PMID: 14899121; PMCID: PEP8837399. - Information on Vitamin K2: more recently [...] with the exception of Natto (a traditional [place] food made from fermented soybeans) has high [...] of these foods, please consult with your Blow Mold Machine Operator or Physician first. Review of Osteoporosis medications [...] can read more at these [facility] web links: https://my.[facility]/health/ treatments/99350-ptpuuluoekcrbtd For Fosamax/alendronate: https://Hook Mobile.[facility]/health/ drugs/35745-zvzueqyzevc-niyzykp For Actonel/risedronate: https://Hook Mobile.[facility]/health/ drugs/00745-niwrjmxxixx-aywd-jsjrezbAx r Reclast/zoledronic acid: https://Hook Mobile.[facility]/health/ drugs/02851-abpvguqbje-rors-hinbpkshl- dvxqjr-hnjcrna-xyofeabjptcj -Subcutaneous Prolia: this is one injection every 6 months, given by the nurse in the office. This medication is given snf, indefinitely. Prolia should not be discontinued without [...] looked into transition therapy. Recent study from [facility] Slim et al, 04/11/2020 (PMID: 70705385.The study is ongoing, clinicaltrials.gov; [id number]), reported one infusion of IV Reclast did [...] can read more at these [facility] web links: https://my.northeastern centerShopetti.org/health/ drugs/83021-zcwfufaqx-wpkhuvevp Medications that build bone density and prevent [...] can read more at these [facility] web links: For Forteo/teriparatide: https://Hook Mobile.HackerEarth.org/health/ drugs/76453-arulrwdxrhel-ddvseuvyh For Tymlos/abaloparatide: https://Hook Mobile.HackerEarth.org/health/ drugs/07750-khjgrkdktiana-iritqxozw Medication that both prevents bone loss and [...] initiated in patients who have had an PR or stroke in the preceding year or those considered high risk. We may need a clearance from a Bottom Brusher prior to proceeding with this medication in patients who have a cardiovascular disease history. This is only prescribed for 1 year and then needs to be followed by anti-resorptive therapy, according to recommendations. You can read more at these [facility] web links: For Evenity/romosozumab: https://my.[facility].org/health/ drugs/07590-jvlrfmxozet-cdhamlmyc Other less potent Osteoporosis medications, such as [...] available medications were provided: Link to the [place] [employer] website at: https://www.rheumatology.org/I-Am-A/Ernesot wyatt-Caregiver/Diseases-Conditions/Os teoporosis Link to the [facility] web link at: On Osteoporosis: https://my.[facility].org/health/ diseases/4443-osteoporosis On Osteopenia: https://my.[facility].org/health/ diseases/68994-gcffycwlgl - Additional information on Bone Health and [...] Osteoporosis Foundation) http://www.osteo.org/osteolinks.asp National Institutes of Health: 8-484-570-BONE The Calcium Information [place]: Non-Dairy, Plant based Milk, can contain in1 glass up to 450 mg of calcium (300 to 450 mg) Exampled include Oat Milk, Flax Milk, Sunset Milk, Cashew Milk, Soy Milk, Peas Milk Examples of Food Sources of Calcium from [facility] Food Milligrams (mg) per serving Percent DV* Soymilk, calcium-fortified, 8 ounces 299 30 Cheney juice, calcium-fortified, 6 ounces 261 26 Tofu, firm, made with calcium sulfate, cup* 253 25 Tofu, soft, made with calcium sulfate, cup* 138 14 Dwbkh-uj-iju cereal, calcium-fortified, 1 cup 100-1,000 10-100 Turnip greens, fresh, boiled, cup 99 10 Kale, raw, chopped, 1 cup 100 10 Kale, fresh, cooked, 1 cup 94 9 Slovenian cabbage, bok marin, raw, shredded, 1 cup 74 7 Bread, white, 1 slice 73 7 Tortilla, corn, jhvie-oq-glre/marshall, one 6 diameter 46 5 Tortilla, flour, cjqpf-tj-vqrr/marshall, one 6 diameter 32 3 Bread, whole-wheat, [...] daily with a meal; Certain patients require 9832-7936 international units daily and in patients deficient [...] bones. Studies show approximately 50% of [place] men and women are vitamin D deficient [...] Additional Information is available from: [facility] Osteoporosis Information: https://my.[facility].org/departm ents/orthopaedics-rheumatology/depts/o steoporosis-metabolic The Bone Health and Osteoporosis Foundation (formerly the National Osteoporosis Foundation) : https://www.bonehealthandosteoporosis. org International Osteoporosis Foundation: https://www.osteoporosis.foundation http://ods.od.nih.gov/factsheets/vitam ind.asp National Institutes of Health: 4-253-923-BONE The Calcium Information [place]: I recommend following a healthy lifestyle. You [...] that features the Whole Plant Based diet, Dardanelle over knives (see video online and visit website). Another movie that was recently released is: Eating You Alive (you can find it at Luxim) and The Hubub Changers movie Dr. Fauzia Ansari is a [facility] physician who has done research and published books, is an expert in Whole Plant based diet for prevention and reversal of heart disease. His website is Contemporary Analysis. 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 Rock Velazco's Program for Reversing Diabetes, Your Body in Balance You can also watch YouTube channel : The Doc & Paid Search Specialist Dr. Anthony Carlson has shown the benefit of a starch based whole food plant based diet to his Rheumatoid Arthritis patients, as well as patient with diabetes II, hypertension, obesity, multiple sclerosis, heart disease, acne, and other, his website: www.debra.Restorando Dr. Yayo Allred is a renowned physician scientist, who has studied and researched the benefits of the Whole plant based diet. He has also researched the adverse effects of animal proteins on health. He presents many of his research findings in his book The [place] study. Dr. Gerber Becker has completed many research trials proving the reversal of diseases, such as heart disease and early prostate cancer, with healthy lifestyle and the Whole Plant based diet. Dr. Gerber Becker website is: www.carmenVMTurbo.Restorando His new book: Undo It, has evidence based information and guide to following this healthy lifestyle. Dr. Cody Dillon has dedicated a website and additional time to reviewing all food related articles and research and presents them in his power point presentation and on his website at: nutritionfacts.org which is all free. Dr. Dillon has multiple free videos and YouTube, for example https://Premium Store.be/aSgNkhgVtks and https://Premium Store.be/lXXXygDRyBU. He has written multiple books including: How Not To and How Not To Diet He is now working on his next book: How Not To Age Dr. Danitza Dash (from the [facility]), has articles on the following website: LiveQoS.Restorando For additional ideas on recipes, you could find additional information on practical to follow recipes by reading or watching online and YouTube such as: Chef BELLE, Cooking With Plants, The Vegan Corner (recipes from an [place] Paid Search Specialist), The Whole Foods Plant Based Cooking Show and visiting the provided websites for additional information on the whole plant based benefit and cooking recipes. You can also consider watching the vlogs of some of the plant based Athletes such as Fausto Ewing Derek on [employer]. You can find very good recipes for [...] Dr. Jenny Degroot Lifestyle Medicine (is a Bottom Brusher and Lifestyle Medicine Physician) -Sometimes it helps to start with a simple diet of potatoes, that Dr. Carlson calls Yarelis Carrie. You can learn more about that in his website: www.Xtime This is the website for Yarelis Butler pdf : https://www.Oja.la.Restorando/wp-content /uploads//Georgiana-Carrie_Website_Pr int_Version-1.pdf You can also read more on Dr. Carlson's website - When you goal is to lose weight, it is important to listen to your hunger cues. Don't eat until you are stuffed. As soon as you feel you are no longer hungry, stop eating. There is a [place] saying that says Tammie Vega, meaning eat until you are 80% full. I say avoid eating past 80% of your stomach fullness. This originated from the city of [facility], which is one of the sites reported in the [employer] book, one of the highest cities in the world for having the most centenarians. Remember your stomach needs space and capacity for proper digestion of your food. Like a food safety manager or a membership counselor, they have a limit for proper function, and should not be filled to the top. You can read more about that from the [facility] article Don t Eat Until You re Full ? Instead, Mind Your Tammie Vega Point , at https://health.[facility].org/don t-fte-itiiw-urhrs-qrin-iswmyzp-mind-yo fl-cfip-veqdy-salvador-point/ Most plants contain proteins and all essential [...] a nutrition tracker such as cronometer or Veratectnesspal and others. Dr. Maryan Holguin (a psychiatrist [...] you will need to consult with a marquetry worker to have further evaluation to exclude Celiac [...] - Gentle Yoga Anyone Can Do Anywhere www.Acorio.Restorando/yoga Also on youtube: yoga with Karlie For women, especially after menopause, strength training is important. You can read more on that from Clare Morley, PhD at her website https://www.CoolIT Systems and YouTube videos. If you are a beginner, it is best to start with a physical therapist or personal lines account executive. There are also several Aps that offer [...] can find more at the [facility] Website on : https://Hook Mobile.[facility].org/[employer] ents/wellness/store/go-well#sleep-tab 4- Stress management, be happy, laugh [...] Timer Meditation Stress Free Now ([facility]). You can find more resources at the [facility] website at : https://Hook Mobile.[facility].org/departSanrad ents/wellness/store/go-well#stress-iron e-tab There are many free youtube videos on guided meditation as well For Breathing techniques: You can watch John Carlisle and learn the breathing technique and its benefits by watching the following YouTube: https://youPlairu.be/7Ml4Y-JJi10?si=-Xtdfr 4UpsJOUbDU. Learning about your awareness/spiritual being, is [...] work with a psychotherapist or behavioral health college coach. When having a psychiatric condition, it [...] or a higher dose. Raw: Garlic, Cilantro, Seminole nuts, Pumpkin seeds, Ingham seeds and Flax seed powder have been reported to help with certain metal detoxification such as mercury. [place]-3 plant based rich foods are good anti-inflammatory [...] the Whole Plant Based Diet, by watching Dardanelle over Knives movie and then review website. There are many other resources and educational information on the Whole plant based diet on the Internet and documentaries. There are other resources for wellness that you can also benefit from, such as the [facility] Wellness website, [facility].org and includes Plant based and Mediterranean diet, yoga and meditation. Please avoid all dairy products. You could use non-dairy milk such as Flax milk, Cashew milk, Sunset milk, Rice milk, Oat milk or Hemp [...] below, just add the ingredients to your membership counselor and blend: - Probably the healthiest smoothie is one that contains mostly green leafy vegetables (especially containing kale), some berries, flax seed and water. This might not returns processor to be sweet. You can add one or two pitted dates or a frozen banana for natural sweetness. Examples of healthy green smoothies, pack your membership counselor (at least half way to 3/4) with a mix of green leafy veggies, then top your membership counselor with fruits (such as banana or frozen raul or pineapple, peaches, apricots, apples, grapes), a tablespoon of flax or david seeds, then add water or unsweetened coconut water and blend until smooth. You can also add turmeric in this recipe. Do not only use spinach as they tend to be high in oxalates and can be risk for kidney stones. The same with burkinan chards and beet leaves. If you don't [...] health and wellbeing. At the [facility], we work as a team for your care, along with Nurse Practitioners, Physician Assistants, Nurses and Medical Assistants. It is a privilege and honor to serve you. Thank you for choosing [facility] for your healthcare. Sincerely, Darrian Dubon MD documented in this encounter [facility] 06-06-2025 Note HNO ID: [id number] Author: DARRIAN DUBON MD Service: ? Author Type: Physician Type: Progress Notes Filed: 06/07/2025 15:19 Note Text: FOLLOW UP VISIT Patient's Name: Jam Erwin [facility] [id number] PCP: Jose L Lackey MD [address] [place] [address] Consult Requested by: Jose L Lackey MD [address] [facility] [address] Other physicians: [facility] prev. Nel Lebron MD (his prev. marquetry worker left- Ronald Brown MD) ; Now following with Dr. Luis Antonio García Accompanied by: self Interim history: is here for f/u RA and OP Recording using ambient [employer] software for draft documentation of the visit was discussed with the patient/authorized dental detail representative; all questions welcomed and answered. Patient/authorized dental detail representative agreed to proceed Reports doing fine today, but this would be his last apt. 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 He has also been seeking local reacher closer to home for him. This is a long drive for him to come here. Regarding the reported RA flare: I asked him to provide me with additional information, he was unable to provide exact dates and details, but reported that his RA flared, at the time everything hurt so bad , middle of my back the [...] He is still undergoing evaluation by his marquetry worker for his IBD disease activity. He has been on Entyvio. States he has gastrointestinal evaluation by his marquetry worker and states - Undergoing capsule endoscopy tomorrow to evaluate small intestine for potential tumors or bleeding. - Recent colonoscopy showed small benign tumors. States told his tumors were benign But still needs the camera States because he is bleeding and requiring His PCP and [facility] are addressing his anemia and further evaluating He had iron infusion 05/26/2025 States he is on potassium and iron infusion by his Primary care physician States his Primary care physician started him on 4 tbs/wk and is comfortable with that He continues on the sulfasalazine, and states his marquetry worker prescribes it, as well as the Entyvio. No interim fractures Continues on vitamin D I reviewed results with patient 02/14/2025 Mr. Toscano is a very nice 59 y.o. gentleman here for f/u visit for Rheumatoid Arthritis and Osteoporosis He follows with IBD, UC, on Entyvio and sulfasalazine; [facility] had liver US and fibroscan, told no fatty liver He is no longer on anti-TNF therapy. States his PCP is treating his anemia with iron, was on supplement and switched to IV. He is not aware of bleeding, denies BRBPR and denies melena. He follows with [facility] for his UC. [facility] has scopes this summer by his marquetry worker. He is following with Orthopedics for his osteoarthroses and non-inflammatory joint pains. He has a chronic rotator cuff tear and extensive bilateral glenohumeral degenerat (more content not included)... [facility] 06-06-2025 History of Present illness Narrative Images from the original note were not included. FOLLOW UP VISIT Patient's Name: Jam Toscano Melissa Alaniz [facility] [id number] PCP: Jose L Lackey MD [address] [place] [phone] Consult Requested by: Jose L Lackey MD [address] [place] [id number] Other physicians: [facility] prev. Nel Lebron MD (his prev. marquetry worker left- Ronald Brown MD) ; Now following with Dr. Luis Antonio García Accompanied by: self Interim history: is here for f/u RA and OP Recording using ambient [employer] software for draft documentation of the visit was discussed with the patient/authorized dental detail representative; all questions welcomed and answered. Patient/authorized dental detail representative agreed to proceed Reports doing fine today, but this would be his last apt. 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 He has also been seeking local reacher closer to home for him. This is a long drive for him to come here. Regarding the reported RA flare: I asked him to provide me with additional information, he was unable to provide exact dates and details, but reported that his RA flared, at the time everything hurt so bad , middle of my back the [...] He is still undergoing evaluation by his marquetry worker for his IBD disease activity. He has been on Entyvio. States he has gastrointestinal evaluation by his marquetry worker and states - Undergoing capsule endoscopy tomorrow to evaluate small intestine for potential tumors or bleeding. - Recent colonoscopy showed small benign tumors. States told his tumors were benign But still needs the camera States because he is bleeding and requiring His PCP and [facility] are addressing his anemia and further evaluating He had iron infusion 05/26/2025 States he is on potassium and iron infusion by his Primary care physician States his Primary care physician started him on 4 tbs/wk and is comfortable with that He continues on the sulfasalazine, and states his marquetry worker prescribes it, as well as the Entyvio. [...] BRBPR and denies melena. He follows with [facility] for his UC. [facility] has scopes this summer by his marquetry worker. He is following with Orthopedics for his osteoarthroses and non-inflammatory joint pains. He has a chronic rotator cuff tear and extensive bilateral glenohumeral degenerative disease. His s/p b/l TKR and rt THR. Hissed rate was elevated at 79 04/2024 at time of his pneumonia. He continues on sulfasalazine and Entyvio by his marquetry worker. 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 Has been on Humira since Sep 2020 (started with 80 mg loading dose and since has been on 40 mg every 2 wks) He was pleased with Enbrel response to his RA and later was switched to Humira, reports has similar benefit and is pleased with response. His marquetry worker switched him to Humira for optimal mgt of IBD and he feels this has helped his IBD better. Reports still gets 8 BM's a day, does not have BM at night, does not have to wake up from sleep. Has been following with his marquetry worker for his UC Had colonoscopy 11/22/2021 with reported marked improvement in asc/transv/desc colon and severe active in rectum, histopath with active colitis with erosions. States Dr. Lebron has started him on rectal enemas. Recent colonoscopy with reported active colitis. He tells me that he continues to have multiple BM's; His marquetry worker prescribed pred. course, completed recently. No jt [...] us, he is on Humira per his [facility] He is off Enbrel, was switched to Humira by his marquetry worker. (previously was on Enbrel 25 mg twice a wk and has been in remission since on Enbrel and very pleased with his treatment regimen) He is on Humira 40 mg every 2 wks by his [facility] He is on sulfasalazine, Humira and mesalamine enemas per his marquetry worker I have reviewed benefits of a whole food plant based diet He consumes dairy, cheese, sausage, hamburger. I have advised him on avoiding meats and dairy and reviewed reports and patient experience with flare of IBD and RA, as well as gastrointestinal dysbiosis. I advised him on a whole foods plant based diet. He has a membership counselor ([employer]) and interested in making healthy smoothies and [...] in this patient with known rheumatoid arthritis. Oracle Solutions Architect: CODY Transcribe Date/Time: Feb 20 2021 9:52A [...] site where has fallen arch. Has seen General Lithographic Worker in the remote past for the fallen arch, not recently. Feels gets stiff when not moving as much. Denies any injury or trauma. Denies any pain to me today States his marquetry worker has prescribed prednisone course due to IBD flare States after scope was told is flared. He is on sulfasalazine and budesonide and his marquetry worker and since has switched him from Enbrel [...] records He is following with Urologist, Dr. aLckey for gross hematuria, seen 02/04/2021 Per note [...] Alk phos isoenz: liver fraction; followed by marquetry worker He follows with his marquetry worker for hi elev alk phos and AST and for bld with stools, Dr Brown: and states he started him on iron supplement States Dr. Brown prescribed metronidazole, for reported diarrhea. [facility] felt it made a difference. States he gave him enemas and told that is for his ulcerative colitis and prescr. sulfasalazine. In 2019, has also followed with his marquetry worker for blood with stools, and had flex sig and told he was inflamed from his Ulcerative colitis. [facility] had colonosc and EGD in 2018 and was told were good. Told his bld in stools from his UC and patient states notices also mucus when wipes. [facility] had increased his sulfasalazine dose. States also notices that dairy and cheese caused really bad inflammation from these and has avoided since. States also avoids coffee and consumes green tea [...] systems reviewed and are negative DXA Model: Power Efficiency W [id number] SITE SCANNED: Lumbar spine and left hip [...] were all normal. He follows with his marquetry worker for his ulcerative colitis and is on sulfasalazine. He was told by his marquetry worker to avoid sun exposure due to this med, had skin itching last summer. He had evaluation for elevated AST and alk phos. Alk phos has improved and AST has been borderline elevated. I have advised him to f/u with his marquetry worker for his elevated alk phos (liver fraction) States his marquetry worker did an US of his liver twice and was told was normal. He denies any alcohol consumption or acetaminophens. His isoenzyme indicated predom. of liver origin. The patient reports that his marquetry worker completed evaluation and told his liver is fine. His liver US was unremarkable . His anemia has resolved since his UC has been controlled. States saw his marquetry worker, Dr. Lebron, recently and states told him [...] and denies hematuria or dysuria. DXA Model: Power Efficiency W [id number] SITE SCANNED: Lumbar spine and left hip [...] states not bad . has seen a reacher in the past, in [place], Dr. Whitfield. [...] 500mg q 6hrs. 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 Lackey Smoking: quit 2012 Alcohol as above IVDU: denies Industrial toxic exposures: denies FAMILY HISTORY: No family history on file. suspects his mother may have had RA Mother: CAD, CABG, COPD/emphysemia Father: passed from [facility] bother were smokers PERTINENT TESTS: Component [...] Abs Lymph 1.00 - 4.00 k/uL 3.02 [place]% 9.7 Abs [place] 0.00 - 0.86 k/uL 0.79 Eosin% 0.0 [...] Negative Negative Ketones, Urine Negative Negative Specific [place], Ur 1.005 - 1.030 1.008 Hemoglobin/Blood,Ur Negative 3+ (A) pH, Urine 4.5 - 8.0 6.0 Protein, Urine Negative mg/dL Negative Urobilinogen Normal Normal Nitrites Negative Negative Leukest Negative Negative Comments SEE COMMENT Urine Adan Comment SEE COMMENT WBC, Urine 0 - 5 /HPF 0-5 RBC, Urine 0 - 3 /HPF >25 (A) Sm Antibody <1.0 AI <0.2 APPRENTICESHIP TRAINING REPRESENTATIVE Antibody <1.0 AI 1.2 (H) SSA Antibody <1.0 AI <0.2 SSB Antibody <1.0 AI <0.2 Centromere Ab <1.0 AI <0.2 Scleroderma Ab, IgG <1.0 AI <0.2 Milagro 1 Antibody <1.0 AI <0.2 Ribosomal APPRENTICESHIP TRAINING REPRESENTATIVE <1.0 AI <0.2 Chromatin Antibody <1.0 AI [...] <12 Sm Antibody <1.0 AI <0.2 Ribosomal APPRENTICESHIP TRAINING REPRESENTATIVE <1.0 AI <0.2 Chromatin Antibody <1.0 AI <0.2 SSA Antibody <1.0 AI <0.2 SSB Antibody <1.0 AI <0.2 APPRENTICESHIP TRAINING REPRESENTATIVE Antibody <1.0 AI 1.2 Scleroderma Ab, IgG [...] FINDINGS CONSISTENT WITH CHRONIC SEVERE RHEUMATOID ARTHRITIS. [employer] Solutions Architect: [facility] Transcribe Date/Time: Aug 29 2015 12:56P ... Last XR Ankle - Impression Only XR ANKLE GENERAL 3V AP/LAT/OBL LT Exam End: 02/20/2021 8:42 AM (Final result) Impression: IMPRESSION: Arthritic changes demonstrating interval progression in this patient with known rheumatoid arthritis. [employer] Solutions Architect[facility] Transcribe Date/Time: Feb 20 2021 9:52A Dictated [...] Ta Finn M.D.01/23/2025 9:09 PM Dictation Location[facility] Electronically authenticated by: [id number] Y Date: 01/23/2025 21:09 Dictated By: Ta [...] its performance characteristics determined by [facility]'s [facility] [place] ([facility]). It has not been cleared or approved by the FDA. -[facility] is regulated under CLIA as qualified to perform high-complexity testing. This test is used for clinical purposes. It should not be regarded as investigational or for research. Testosterone Date Value Ref Range Status 08/19/2018 387 193 - 824 ng/dL Final Comment: A testosterone level in the 193-320 ng/dL range with associated clinical symptoms is considered low and may indicate hypogonadism (from [facility] 2010 [id number]). Results >320 ng/dL are considered [...] 147 53 - 334 mg/dL Final [facility] [place], Serum Date Value Ref Range Status 08/19/2018 1,020 534 - 1,267 mg/dL Final [facility] [place], Serum Date Value Ref Range Status 08/19/2018 551 253 - 653 mg/dL Final [facility] [place]/Lambda Ratio Date Value Ref Range Status 08/19/2018 [...] Wt 75.3 kg (166 lb) BMI 26.81 kg/m afebrile, VSS General Appearance: WD/WN, NAD. [...] in patient's severe chronic Rheumatoid Arthritis. His marquetry worker has switched him to Humira as he [...] not have his PCP records and results and if perhaps his CRP was higher prior to starting on methotrexate. He is tolerating methotrexate well, continues on sulfasalazine by his marquetry worker He is also on Entyvio by his marquetry worker. -Osteoporosis DXA August 19, 2018 Lowest T-score [...] to receive intermittent steroid therapy from his marquetry worker. Pharmacologic therapy is still indicated and recommended, [...] at the hip and 7.2% at the spine since 2021 and by up to 14.5% at the spine since 2018). Gained bone density at the spine and hips. TBS spine: partially degraded microarchitecture FRAX would not be reported as patient received bisphosphonate in 2023 (Frax is was not on bisphosphonate therapy, would be 6.8% for MOF and 1.8% for hip fracture risk, with RA included in the risk factors. With emt/dispatcher systemic steroids FRAX scores would be higher). [...] Also receives labs per Primary care physician/ [facility] Reviewed his labs Advised on phosph. rich diet -The patient's marquetry worker follows him for his UC, anemia and liver tests. He is on Entyvio and sulfasalazine per his [facility] RA DMARD therapy: patient would like to [...] DMARDs needs to be adjusted to avoid emt/dispatcher use of nsaids and their risk factors and adverse effect. With escalation of treatment for his RA, options include either methotrexate dose increase if labs allow and well tolerated, or he may need to resume his anti-TNF medication (either Enbrel or Humira). With being on methotrexate, folate supplement is recommended. Reports taking folate He is on sulfasalazine per his marquetry worker and Entyvio for his IBD (He was prev. on Enbrel 25 mg sq twice a week, or may switch to Humira if his marquetry worker switched him to Humira TNF inhibitor therapy, [...] on sulfasalazine for his IBD per his marquetry worker RE OP med: Received Reclast infusion, 5 [...] disease. Osteoporosis was likely due to previous snf steroid therapy by other physicians over the [...] atypical and subtroch. fracture of femur with snf use of bisphosphonates/alendronate and anti-resorptive agents, there [...] wished to proceed. Previous orders -CONSULT TO MAINTENANCE MECHANIC 2ND SHIFT -CONSULT TO PODIATRY Provided referral to OT for assistive devices, exercises to preserve left function Referral to inventory coordinator for foot/ankle deformities and callus care, inserts/braces/orthotics, [...] additional resources and educational information provided to patient in their After Visit Summary. I spent a total of 33 minutes on the date of the service which included preparing to see the patient, [id number] patient care, completing clinical documentation, obtaining and/or [...] If he is able to find another reacher closer to home or or if Dr. Lackey is following and managing his RA, and they are both comfortable with that, he can cancel his apt with me. I explained to patient that I respect his wishes and understand his concerns and relayed that it has been an honor and a privilege to care for you. I remain available if Dr. Lackey has questions or needs to discuss his case further in the future. We also have multiple rheumatologists in this practice here at [place] who are also able to follow him, [...] is continuing his care with his local marquetry worker. Please see above discussion on recommendations. He will need regular labs for methotrexate and sulfasalazine monitoring. He will need a recheck CRP to ensure has improved Infection precautions are recommended while on immunosuppressive therapy (IMT) Folic acid/folate supplement is recommended while on methotrexate -He relayed you are managing his anemia and his marquetry worker is completing further evaluation. -His phosphorous was [...] longer prior and after. Please refer to [place] [employer] Guidelines for up to [...] appropriate immunization recommended. -Continued follow up with marquetry worker for IBD management and monitoring for liver disease, as they deem necessary Thank you for allowing me to participate in the care of your patient. Darrian Fischer MD Jose L Lackey MD [address] [place] [address] We reassured patient that we have been sending letters and copy of my visit note after each of his office visits. They have been faxed to his Primary care physician office Today, I have also asked my director medical safety to mail this visit note and letter to his Primary care physician office mailing address. Medical Decision Making: Problems: Moderate: 2+ stable chronic illnesses Data: Unique source(s) for external note(s) reviewed: 3+ Unique test result(s) reviewed: 3+ Discussed management or test w/ external physician/QHCP/source Medical Decision Making Level: 4 - Moderate documented in this encounter [facility] 06-06-2025 History of Present illness Narrative Radiology Service Progress Note PATIENT NAME: Jam Toscano DATE OF SERVICE: June 06, 2025 [...] PATIENT PRESENTS WITH AN IMPLANTABLE OR ATTACHED ANATOMIC PATHOLOGIST: No RADIOLOGY DEPARTMENT: Bone Density PERIPHERAL IV DATA: Not applicable SIGNED BY: CHEMO Ching) June 06, 2025 8:12 AM documented in this encounter [facility] 06-06-2025 Note HNO ID: [id number] Author: BLAYNE DENIS RT(R) Service: ? Author Type: Technologist Type: Progress Notes Filed: 06/06/2025 08:12 Note Text: Radiology Service Progress Note PATIENT NAME: Jam Toscano DATE OF SERVICE: June 06, 2025 [...] PATIENT PRESENTS WITH AN IMPLANTABLE OR ATTACHED ANATOMIC PATHOLOGIST: No RADIOLOGY DEPARTMENT: Bone Density PERIPHERAL IV DATA: Not applicable SIGNED BY: CHEMO Ching) June 06, 2025 8:12 AM [facility] 05-31-2025 Note Nurse Consultation N ote Assessment/Plan patient tolerated agile capsule and verified understanding of instructions. Medications atorvastatin 20 mg Tab, 20 mg= 1 tab(s), Oral, Daily cholecalciferol 5000 intl units oral capsule, Oral, Daily Entyvio Pen 108 mg/0.68 mL subcutaneous solution, 108 mg, SubCutaneous, q2wk ferrous sulfate 325 mg oral enteric coated tablet, Oral, BID folic acid 1 mg Tab, 1 mg= 1 tab(s), Oral, Daily lisinopril, 10 mg, Oral, Daily meloxicam 15 mg Tab, Oral, Daily methotrexate 2.5 mg Tab, 10 mg= 4 tab(s), Oral, q7day Multivitamins and Minerals, 1 tab, Oral, Daily omeprazole 40 mg Cap-DR, 40 mg= 1 cap(s), Oral, Daily Potassium 10 MEQ capsule, 0 sulfasalazine, 500 mg, Oral, QID Zetia 10 mg Tab, 10 mg= 1 tab(s), Oral, Daily Allergies No Known Allergies No Known Medication Allergies Immunizations Vaccine Date Status Comments influenza virus vaccine, inactivated 08/2022 Recorded influenza virus vaccine, inactivated - Not Given Patient Refuses zoster vaccine, inactivated 06/09/2022 Recorded zoster vaccine, inactivated 03/17/2022 Recorded influenza virus vaccine, inactivated - Not Given Patient Refuses SARS-CoV-2 (COVID-19) Ad26 vaccine 03/18/2021 Recorded 2022-07-22: TPV50 SARS-CoV-2 (COVID-19) mRNA-1273 vaccine 03/2021 Recorded Josi influenza virus vaccine, inactivated 09/27/2020 Recorded influenza virus vaccine, inactivated 09/2020 Recorded influenza virus vaccine, inactivated 10/28/2019 Recorded influenza virus vaccine, inactivated 08/29/2019 Recorded influenza virus vaccine, inactivated 08/15/2016 Recorded hepatitis A-hepatitis B vaccine 12/08/2015 Recorded pneumococcal 13-valent vaccine 11/01/2015 Recorded influenza virus vaccine, inactivated 07/31/2015 Recorded hepatitis A-hepatitis B vaccine 05/31/2015 Recorded pneumococcal 23-valent vaccine 05/03/2015 Recorded hepatitis A-hepatitis B vaccine 05/03/2015 Recorded [facility] 05-11-2025 Note Progress Note-Blake shell Patient: JAM TOSCANO Age: 60 years Sex: Male : 1965 Associated Diagnoses: None Author: Kody Ramos Jr., DO Postoperative Information Postoperative disposition: Postoperative disposition: Home. Optimetrix number: Optimetrix number [id number]. Anesthetic utilized: General. Physical Examination Vital Signs 05/11/2025 10:05 EDT Heart Rate Monitored 78 bpm 05/11/2025 10:05 EDT Respiratory Rate Monitored 17 br/min 05/11/2025 10:05 EDT Systolic Blood Pressure 145 mmHg HI Diastolic Blood Pressure 93 mmHg HI SpO2 96 % 05/11/2025 9:55 EDT SpO2 98 % 05/11/2025 9:55 EDT Heart Rate Monitored 84 bpm 05/11/2025 9:55 EDT Respiratory Rate Monitored 14 br/min 05/11/2025 9:55 EDT Systolic Blood Pressure 137 mmHg Diastolic Blood Pressure 90 mmHg HI 05/11/2025 9:50 EDT Respiratory Rate Monitored 13 br/min 05/11/2025 9:50 EDT Heart Rate Monitored 80 bpm 05/11/2025 9:50 EDT SpO2 97 % 05/11/2025 9:50 EDT Systolic Blood Pressure 130 mmHg Diastolic Blood Pressure 89 mmHg 05/11/2025 9:45 EDT Heart Rate Monitored 82 bpm Respiratory Rate Monitored 18 br/min SpO2 96 % 05/11/2025 9:45 EDT Systolic Blood Pressure 116 mmHg Diastolic Blood Pressure 81 mmHg 05/11/2025 9:42 EDT Systolic Blood Pressure 109 mmHg Diastolic Blood Pressure 74 mmHg 05/11/2025 9:42 EDT Temperature Temporal Artery 36.7 [facility] Heart Rate Monitored 78 bpm Respiratory Rate Monitored 22 br/min SpO2 95 % Pain Assessment: Controlled. General: Awake, Alert, Appropriate. Respiratory: Adequate air exchange, Non-labored. Cardiovascular: Stable, Normal peripheral perfusion. Neurological: Neurologic exam at baseline. No changes.. Assessment Anesthetic outcome No anesthetic complications noted. No nausea/vomiting. Review / Management Condition: Stable. Plan Transfer/Discharge: Transfer/Discharge Discharge when meets criteria ( From PACU to Ambulatory Surgery Unit, and To home ). [facility] Comment on above: Result Comment: Elec tronically Signed By: Kody Ramos Jr., DO\.br\Date and Time Signed: 05/11/25 12:13 EDT 05-11-2025 Note Patient Education - Text Colonoscopy Care [...] severe or gets worse throughout the day. Gastroenterology Upper Endoscopy, Adult, Care After After the procedure, it is common to have a sore throat. It is also common to have: ??? Mild stomach pain or discomfort. ??? Bloating. ??? Nausea. Follow these instructions at home: The instructions below may help you care for yourself at home. Your health care provider may give you more instructions. If you have questions, ask your health care provider. ??? If you were given a sedative during the procedure, it can affect you for several hours. Do not drive or operate machinery until your health care provider says that it is safe. ??? If you will be going home right after the procedure, plan to have a responsible adult: ? Take you home from the hospital or clinic. You will not be allowed to drive. ? Care for you for the time you are told. ??? Follow instructions from your health care provider about what you may eat and drink. ??? Return to your normal activities as told by your health care provider. Ask your health care provider what activities are safe for you. ??? Take wtyk-xnx-puqhbqa and prescription medicines only as told by your health care provider. Contact a health care provider if you: ??? Have a sore throat that lasts longer than one day. ??? Have trouble swallowing. ??? Have a fever. Get help right away if you: ??? Vomit blood or your vomit looks like coffee grounds. ??? Have bloody, black, or tarry stools. ??? Have a very bad sore throat or you cannot swallow. ??? Have difficulty breathing or very bad pain in your chest or abdomen. These symptoms may be an emergency. Get help right away. Call 911. ??? Do not wait to see if the symptoms will go away. ??? Do not drive yourself to the hospital. Summary ??? After the procedure, it is common to have a sore throat, mild stomach discomfort, bloating, and nausea. ??? If you were given a sedative during the procedure, it can affect you for several hours. Do not drive until your health care provider says that it is safe. ??? Follow instructions from your health care provider about what you may eat and drink. ??? Return to your normal activities as told by your health care provider. This information is not intended to replace advice given to you by your health care provider. Make sure you discuss any questions you have with your health care provider. Document Revised: 02/11/2023 Document Reviewed: 02/11/2023 [employer] Patient Education ? 2023 [employer] Peptic Ulcer A peptic ulcer is a sore in the lining of the stomach (gastric ulcer) or the first part of the small intestine (duodenal ulcer). The ulcer causes a gradual wearing away (erosion) of the deeper tissue. What are the causes? Normally, the lining of the stomach and the small intestine protects them from the acid that digests food. The protective lining can be damaged by: ??? An infection caused by a type of bacteria called Helicobacter pylori or (more content not included)... [facility] 05-11-2025 Note Endoscopic Procedure Report - Other Patient: JAM TOSCANO Age: 60 years Sex: Male : 1965 Associated Diagnoses: None Author: Luis Antonio García MD Pre-Procedure Procedure Date 05/11/2025 09:39:00 . Procedure Type: Colonoscopy with removal of tumor(s), polyp(s), or other lesion(s) by snare technique, biopsy. Procedure provider Performed by Luis Antonio García MD. Current history and physical Documented on chart. Colonoscopy ([id number]) on 06/03/2024 at 59 Years. Esophagogastroduodenoscopy ([id number]) on 06/03/2024 at 59 Years. Colonoscopy ([id number]) on 02/26/2024 at 58 Years. Colonoscopy ([id number]) on 03/23/2023 at 57 Years. Cystoscopy ([id number]) on 02/04/2021 at 55 Years. Colonoscopy ([id number]). right hip replacement ([id number]). replacement on both knees ([id number]).. Past Medical History Resolved Extreme obesity ([id number]) : Resolved. Ulcerative colitis (311731439): Resolved.. Family History Asthma Mother Hypertension Mother Heart disease Mother Arthritis Brother Stroke Father High cholesterol Mother . Procedure History Colonoscopy ([id number]) on 06/03/2024 at 59 Years. Esophagogastroduodenoscopy ([id number]) on 06/03/2024 at 59 Years. Colonoscopy ([id number]) on 02/26/2024 at 58 Years. Colonoscopy ([id number]) on 03/23/2023 at 57 Years. Cystoscopy ([id number]) on 02/04/2021 at 55 Years. Colonoscopy ([id number]). right hip replacement ([id number]). replacement on both knees ([id number]).. Colorectal neoplasm risk assessment High risk UC. . Informed Consent After discussing the rationale, risks and benefits, and alternatives to this procedure, the patient provided signed consent for the procedure. Pre-procedure diagnosis: Diagnostic: Colitis. Medications (Selected) Inpatient Medications Ordered Sodium Chloride 0.9% IV Dawn 1000 mL 1,000 mL: 1,000 mL, IV, 20 mL/hr, Routine, Start date 05/11/25 6:44:00 EDT, 50 hour(s), Total volume (mL): 1,000 Documented Medications Documented Entyvio Pen 108 mg/0.68 mL subcutaneous solution: 108 mg, SubCutaneous, q2wk, Refills(s) 0, Other (see comment) Multivitamins and Minerals: 1 tab, Oral, Daily, [...] 1 tab(s), Oral, Daily, Refills(s) 0, Prophylaxis lisinopril: 10 mg, Oral, Daily, Refills(s) 0, High blood pressure methotrexate 2.5 mg Tab: 10 mg = 4 tab(s), Oral, q7day, # 4 tab(s), Refills(s) 0, Other (see comment) omeprazole 40 mg Cap-DR: 40 mg = 1 cap(s), Oral, Daily, Refills(s) 0, Control of stomach acid sulfasalazine: 500 mg, Oral, QID, Refills(s) 0, Other (see comment) ASA Classification: Class II. . Monitoring: See [...] patient tolerated the procedure well. Last colonoscopy 05/2024 Time to cecum: 1 min Time of withdrawal: 18 min Findings 1. Small internal hemorrhoids 2. Mild edematous mucosa in the rectum, rectosigmoid area between 20 and 30 cm 3. 5 mm polyp highly suspicious for inflammatory polyp, resected with cold snare completely and retrieved. 1 clip was placed to prevent delayed bleeding 4. Otherwise normal colonic mucosa, Morales score 0. Dysplasia surveillance was done using white light, TXA mode and NBI mode. In addition, biopsies were taken every 10 cm from right colon, transverse colon, left colon, rectosigmoid colon and rectum to rule out dysplasia and assess for colitis 5. Normal examined terminal ileum Images Procedure images: Rec1_hd_video_2024__[id number]_[id number]. jpg Rec1_hd_video_2024__T08_[id number]. jpg Rec1_hd_video__T08_49_[id number]. jpg Rec1_hd_video__T08_49_[id number]. jpg Rec1_hd_video_2024__T08_49_18_[id number]. jpg Rec1_hd_video_2024__T08_48_[id number]. jpg Rec1_hd_video_2024__T08_46_[id number]. jpg Rec1_hd_video__T08_46_34_[id number]. jpg (more content not included)... [facility] Comment on above: Result Comment: Elec tronically Signed By: Luis Antonio García MD\chelsea\Date and Time Signed: 05/11/25 09:42 EDT Other Comment: Sheila trinh Attachment - attachment storage system not supported [id number] Can be viewed in source system Missing Attachment - attachment storage system not supported [id number] Can be viewed in source system Missing Attachment - attachment storage system not supported [id number] Can be viewed in source system Missing Attachment - attachment storage system not supported [id number] Can be viewed in source system Missing Attachment - attachment storage system not supported [id number] Can be viewed in source system Missing Attachment - attachment storage system not supported [id number] Can be viewed in source system Missing Attachment - attachment storage system not supported [id number] Can be viewed in source system Missing Attachment - attachment storage system not supported [id number] Can be viewed in source system Missing Attachment - attachment storage system not supported [id number] Can be viewed in source system Missing Attachment - attachment storage system not supported [id number] Can be viewed in source system Missing Attachment - attachment storage system not supported [id number] Can be viewed in source system Missing Attachment - attachment storage system not supported [id number] Can be viewed in source system Missing Attachment - attachment storage system not supported [id number] Can be viewed in source system Missing Attachment - attachment storage system not supported [id number] Can be viewed in source system Missing Attachment - attachment storage system not supported [id number] Can be viewed in source system Missing Attachment - attachment storage system not supported [id number] Can be viewed in source system Missing Attachment - attachment storage system not supported [id number] Can be viewed in source system Missing Attachment - attachment storage system not supported [id number] Can be viewed in source system Missing Attachment - attachment storage system not supported [id number] Can be viewed in source system Missing Attachment - attachment storage system not supported [id number] Can be viewed in source system Missing Attachment - attachment storage system not supported [id number] Can be viewed in source system Missing Attachment - attachment storage system not supported [id number] Can be viewed in source system Missing Attachment - attachment storage system not supported [id number] Can be viewed in source system Missing Attachment - attachment storage system not supported 2432060 Can be viewed in source system Missing Attachment - attachment storage system not supported 3798090 Can be viewed in source system Missing Attachment - attachment storage system not supported 9246058 Can be viewed in source system Missing Attachment - attachment storage system not supported [id number] Can be viewed in source system Missing Attachment - attachment storage system not supported 8099537 Can be viewed in source system Missing Attachment - attachment storage system not supported 2535126 Can be viewed in source system Missing Attachment - attachment storage system not supported 1860333 Can be viewed in source system Missing Attachment - attachment storage system not supported 4566531 Can be viewed in source system Missing Attachment - attachment storage system not supported 2843290 Can be viewed in source system Missing Attachment - attachment storage system not supported [id number] Can be viewed in source system Missing Attachment - attachment storage system not supported 6820449 Can be viewed in source system Missing Attachment - attachment storage system not supported [id number] Can be viewed in source system 05-11-2025 Note Endoscopic Procedure Report - Other Patient: JAM TOSCANO Age: 60 years Sex: Male : 1965 Associated Diagnoses: None Author: Luis Antonio García MD Pre-Procedure Procedure Date 05/11/2025 09:09:00 . Procedure Type: Esophagogastroduodenoscopy with biopsy. Procedure provider Performed by Luis Antonio García MD. Current history and physical Documented on chart. Informed Consent After discussing the rationale, risks and benefits, and alternatives to this procedure, the patient provided signed consent for the procedure. Pre-procedure diagnosis: Gastritis. Medications Anticoagulant/antiplatelet None. ASA Classification: Class III. . Monitoring: See anesthesia record. . Procedure The procedure was performed in the hospital. See anesthesia record for sedation given during procedure. The patient was positioned starting in the left lateral decubitus position and with safety measures. Endoscope type used was an adult-size, introduced orally, advanced to the 3rd portion of the duodenum. No difficulty was encountered during the procedure. Views were excellent. The patient tolerated the procedure well. Findings 1. Esophageal landmarks identified, slight decreased motility through the esophagus based on endoscopic exam, nonspecific. Otherwise normal examined esophagus 2. Moderate patchy erythema in the antrum of the stomach with couple small erosions, otherwise normal examined stomach. Random biopsies were taken for histology and H. pylori 3. Normal examined duodenum Images Procedure images: Rec1_hd_video_2024__T08_[id number]. jpg Rec1_hd_video_2024__26T08__[id number]. jpg Rec1_hd_video_2024__T08__48_458. jpg Rec1_hd_video__T08__07_359. jpg Rec1_hd_video_2024__T08__01_838. jpg Rec1_hd_video_2024__T08_20_50_[id number]. jpg Rec1_hd_video_2024__T08_20_40_359. jpg Rec1_hd_video_2024__T08_20_37_996. jpg Rec1_hd_video_2024__T08_20_33_[id number]. jpg Rec1_hd_video_2024__26T08_20_20_[id number]. jpg Rec1_hd_video_2024__26T08_20_03_[id number]. jpg . Post-Procedure Complications: none. Estimated blood loss: minimal. Specimens: sent to pathology. Devices/ implants: none left in place. Impression and Plan 1. Esophageal landmarks identified, slight decreased motility through the esophagus based on endoscopic exam, nonspecific. Otherwise normal examined esophagus 2. Moderate patchy erythema in the antrum of the stomach with couple small erosions, otherwise normal examined stomach. Random biopsies were taken for histology and H. pylori 3. Normal examined duodenum Recommendations: -Resume previous diet -Resume home medications -Await pathology results, follow in GI clinic in 1-2 after discharge [facility] Comment on above: Result Comment: Elec tronically Signed By: Ricky ROBLERO, Luis Antonio Tiwari\.br\Date and Time Signed: 05/11/25 09:10 EDT Other Comment: Sheila trinh Attachment - attachment storage system not supported [id number] Can be viewed in source system Missing Attachment - attachment storage system not supported [id number] Can be viewed in source system Missing Attachment - attachment storage system not supported [id number] Can be viewed in source system Missing Attachment - attachment storage system not supported [id number] Can be viewed in source system Missing Attachment - attachment storage system not supported [id number] Can be viewed in source system Missing Attachment - attachment storage system not supported [id number] Can be viewed in source system Missing Attachment - attachment storage system not supported [id number] Can be viewed in source system Missing Attachment - attachment storage system not supported [id number] Can be viewed in source system Missing Attachment - attachment storage system not supported [id number] Can be viewed in source system Missing Attachment - attachment storage system not supported [id number] Can be viewed in source system Missing Attachment - attachment storage system not supported [id number] Can be viewed in source system 05-11-2025 Note History and Physical Patient: JAM TOSCANO Age: 60 years Sex: Male : 1965 Associated Diagnoses: None Author: Ricky ROBLERO, Luis Antonio Tiwari Preoperative Information Indication for procedure and diagnosis: Gastritis, UC Chief Complaint as above Review of Systems All systems reviewed, negative except as mentioned above Health Status Current medications: (Selected) Inpatient Medications Ordered Sodium Chloride 0.9% IV Dawn 1000 mL 1,000 mL: 1,000 mL, IV, 20 mL/hr, Routine, Start date 05/11/25 6:44:00 EDT, 50 hour(s), Total volume (mL): 1,000 Documented Medications Documented Entyvio Pen 108 mg/0.68 mL subcutaneous solution: 108 mg, SubCutaneous, q2wk, Refills(s) 0, Other (see comment) Multivitamins and Minerals: 1 tab, Oral, Daily, [...] 1 tab(s), Oral, Daily, Refills(s) 0, Prophylaxis lisinopril: 10 mg, Oral, Daily, Refills(s) 0, High blood pressure methotrexate 2.5 mg Tab: 10 mg = 4 tab(s), Oral, q7day, # 4 tab(s), Refills(s) 0, Other (see comment) omeprazole 40 mg Cap-DR: 40 mg = 1 cap(s), Oral, Daily, Refills(s) 0, Control of stomach acid sulfasalazine: 500 mg, Oral, QID, Refills(s) 0, Other (see comment), Home Medications (11) Active atorvastatin 20 mg Tab 20 mg = 1 tab(s), Oral, Daily cholecalciferol 5000 intl units oral capsule , Oral, Daily Entyvio Pen 108 mg/0.68 mL subcutaneous solution 108 mg, SubCutaneous, q2wk folic acid 1 mg Tab 1 mg = 1 tab(s), Oral, Daily lisinopril 10 mg, Oral, Daily methotrexate 2.5 mg Tab 10 mg = 4 tab(s), Oral, q7day Multivitamins and Minerals 1 tab, Oral, Daily omeprazole 40 mg Cap-DR 40 mg = 1 cap(s), Oral, Daily sulfasalazine 500 mg, Oral, QID Turmeric 400 mg, Oral, Daily Zetia 10 mg Tab 10 mg = 1 tab(s), Oral, Daily Problem list: All Problems Food insecurity / SNOMED CT 7631308922 / Possible Problem added automatically by Discern Expert based on clinical documentation Financial problem / SNOMED CT 946310467 / Possible Problem added automatically by Discern Expert based on clinical documentation Unable to afford medication / SNOMED CT 763623332039771 / Possible Problem added automatically by Discern Expert based on clinical documentation Hyperlipemia / SNOMED CT 00212880 / Confirmed Rectal bleed / SNOMED CT 453038587 / Confirmed Heartburn / SNOMED CT 93116812 / Confirmed Ulcerative colitis, universal / SNOMED CT 9374394542 / Confirmed Bladder stone / SNOMED CT 955559810 / Confirmed BPH with urinary obstruction / SNOMED CT 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 / Confirmed Incomplete bladder emptying / SNOMED CT 281163402 / Confirmed Gross hematuria / SNOMED CT 010477667 / Confirmed Kidney stones / SNOMED CT 034503622 / Confirmed Bladder mass / SNOMED CT 6993680442 / Confirmed Urethral stone / SNOMED CT 48593539 / Confirmed Prostate calculus / SNOMED CT 270760699 / Confirmed Continuous severe abdominal pain / SNOMED CT 18818240 / Confirmed Hematochezia / SNOMED CT 1846713670 / Confirmed Acute diarrhea / SNOMED CT 1624455048 / Confirmed Vardaman ulcerative colitis / SNOMED CT 4156805529 / Confirmed Adenomatous colon polyp / SNOMED CT 7842186968 / Confirmed History of colon polyps / SNOMED CT 1538611996 / Confirmed Elevated alkaline phosphatase level / SNOMED CT 6968155600 / Confirmed Anemia / SNOMED CT 501328611 / Confirmed Arthritis / SNOMED CT 3967816 / Confirmed Multiple renal cysts / SNOMED CT 468763954 / Confirmed Ureteral stone with hydronephrosis / SNOMED CT 2977752504 / Confirmed Screening PSA (prostate specific antigen) / SNOMED CT 088829435 / Confirmed Feeling of incomplete bladder emptying / SNOMED CT 5480673805 / Confirmed Pyuria / SNOMED CT 1442815 / Confirmed Histories Past Medical History: Resolved Extreme obesity ([id number]) : Resolved. Ulcerative colitis (258078746): Resolved. Family History: Brother Arthritis Father Stroke Mother Asthma High cholesterol Hypertension Heart disease Procedure history: Colonoscopy ([id number]) on 06/03/2024 at 59 Years. Esophagogastroduodenoscopy ([id number]) on 06/03/2024 at 59 Years. Colonoscopy ([id number]) on 02/26/2024 at 58 Years. Colonoscopy ([id number]) on 03/23/2023 at 57 Years. Cystoscopy ([id number]) on 02/04/2021 at 55 Years. Colonoscopy (173797214). right hip replacement (099859599). replacement on both knees (629361766). Social History Social & Psychosocial Habits Alcohol 12/14/2024 Risk Assessment: Denies Alcohol Use 12/14/2024 Use: Never Comment: denies - 01/14/2023 08:52 - Tamiko Garcia I Exercise 12/14/2024 R (more content not included)... [facility] Comment on above: Result Comment: Elec tronically Signed By: Ricky ROBLERO, Luis Antonio Tiwari\.sania\Date and Time Signed: 05/11/25 09:09 EDT 05-11-2025 Note Progress Note-Blake shell Patient: JAM TOSCANO Age: 60 years Sex: Male : 1965 Associated Diagnoses: [...] Status Allergies: Allergic Reactions (Selected) No Known Allergies No Known Medication Allergies, Allergies (2) Active Severity Reaction No Known Allergies None Documented No Known Medication Allergies None Documented Current medications: (Selected) Inpatient Medications Ordered Sodium Chloride 0.9% IV Dawn 1000 mL 1,000 mL: 1,000 mL, IV, 20 mL/hr, Routine, Start date 05/11/25 6:44:00 EDT, 50 hour(s), Total volume (mL): 1,000 Documented Medications Documented Entyvio Pen 108 mg/0.68 mL subcutaneous solution: 108 mg, SubCutaneous, q2wk, Refills(s) 0, Other (see comment) Multivitamins and Minerals: 1 tab, Oral, Daily, [...] 1 tab(s), Oral, Daily, Refills(s) 0, Prophylaxis lisinopril: 10 mg, Oral, Daily, Refills(s) 0, High blood pressure methotrexate 2.5 mg Tab: 10 mg = 4 tab(s), Oral, q7day, # 4 tab(s), Refills(s) 0, Other (see comment) omeprazole 40 mg Cap-DR: 40 mg = 1 cap(s), Oral, Daily, Refills(s) 0, Control of stomach acid sulfasalazine: 500 mg, Oral, QID, Refills(s) 0, Other (see comment), Home Medications (11) Active atorvastatin 20 mg Tab 20 mg = 1 tab(s), Oral, Daily cholecalciferol 5000 intl units oral capsule , Oral, Daily Entyvio Pen 108 mg/0.68 mL subcutaneous solution 108 mg, SubCutaneous, q2wk folic acid 1 mg Tab 1 mg = 1 tab(s), Oral, Daily lisinopril 10 mg, Oral, Daily methotrexate 2.5 mg Tab 10 mg = 4 tab(s), Oral, q7day Multivitamins and Minerals 1 tab, Oral, Daily omeprazole 40 mg Cap-DR 40 mg = 1 cap(s), Oral, Daily sulfasalazine 500 mg, Oral, QID Turmeric 400 mg, Oral, Daily Zetia 10 mg Tab 10 mg = 1 tab(s), Oral, Daily , Medications (1) Active Scheduled: (0) Continuous: (1) Sodium Chloride 0.9% 1,000 mL 1,000 mL, IV, 20 mL/hr PRN: (0) Problem list: All Problems Acute diarrhea / SNOMED CT 0096069972 / Confirmed Adenomatous colon polyp / SNOMED CT 3827974180 / Confirmed Anemia / SNOMED CT 199321175 / Confirmed Arthritis / SNOMED CT 5808155 / Confirmed Bladder mass / SNOMED CT 8242180573 / Confirmed Bladder stone / SNOMED CT 358884319 / Confirmed BPH with urinary obstruction / SNOMED CT 3335263481 / Confirmed Continuous severe abdominal pain / SNOMED CT 58568454 / Confirmed Elevated alkaline phosphatase level / SNOMED CT 4006514701 / Confirmed Feeling of incomplete bladder emptying / SNOMED CT 6603432031 / Confirmed Financial problem / SNOMED CT 486440381 / Possible Problem added automatically by Discern Expert based on clinical documentation Food insecurity / SNOMED CT 3373364017 / Possible Problem added automatically by Discern Expert based on clinical documentation Gross hematuria / SNOMED CT 716757962 / Confirmed Heartburn / SNOMED CT 76455621 / Confirmed Hematochezia / SNOMED CT 5778552661 / Confirmed History of colon polyps / SNOMED CT 5635194903 / Confirmed Hyperlipemia / SNOMED CT 35252539 / Confirmed Incomplete bladder emptying / SNOMED CT 069418316 / Confirmed Kidney stones / SNOMED CT 210363260 / Confirmed Multiple renal cysts / SNOMED CT 560814231 / Confirmed Prostate calculus / SNOMED CT 675013234 / Confirmed Pyuria / SNOMED CT 8534758 / Confirmed Rectal bleed / SNOMED CT 742777854 / Confirmed Screening PSA (prostate specific antigen) / SNOMED CT 676188599 / Confirmed Ulcerative colitis, universal / SNOMED CT 2223112286 / Confirmed Unable to afford medication / SNOMED CT 651301755200410 / Possible Problem added automatically by Discern Expert based on clinical documentation Vardaman ulcerative colitis / SNOMED CT 3861538542 / Confirmed Ureteral stone with hydronephrosis / SNOMED CT 3429257456 / Confirmed Urethral stone / SNOMED CT 10283307 / Confirmed Resolved: Extreme obesity / SNOMED CT [id number] Resolved: Ulcerative colitis / SNOMED CT 542808350 Canceled: Ulcerative colitis / SNOMED CT 084805177 Histories Past Medical History: Resolved Extreme obesity ([id number]) : Resolved. Ulcerative colitis (985645896): Resolve (more content not included)... [facility] Comment on above: Result Comment: Elec tronically Signed By: Kody Ramos Jr., DO\.br\Date and Time Signed: 05/11/25 08:36 EDT 05-03-2025 History of Present illness Narrative Images from the original note were not included. HISTORY OF PRESENT ILLNESS: EST PT Jam Toscano is an 60 y.o. @ male. (EST PT) (LAST APPT W/ DR. MABRY) - YEARLY RECHECK B/L KNEES S/P (L) TKA 02/27/2012 (~13 YRS, 2 MONTHS) ; S/P (R) TKA 06/13/2011 (~13 YRS, 11 MONTHS) (L) KNEE XRAY B/L KNEES TODAY, 05/03/25 XRAY (L) KNEE 05/03/24, 04/21/23 IN [facility] XRAY AP B/L KNEES 06/17/22, 04/01/22, 02/26/21, 04/17/20 IN [facility] DO[facility] WELL. ADMITS CONSTANT LATERAL ROTATION OF KNEE D/T FOOT ROTATION. ADMITS CONSTANT SWELLING TO KNEE / FOOT ~1 MONTH - RECENTLY STARTED METHOTREXATE - WITH RELIEF. DENIES WAKING HS - SLEEPS WITH BODY PILLOW AGAINST LEG D/T ROTATION. FULL ROM. OCCASIONAL STIFFNESS. ADMITS POPPING. ADMITS ICING / ELEVATING. TYL PRN (ARTHRITIS). WEARS VELCO BRACE OCCASIONALLY. (R) KNEE XRAY B/L KNEES TODAY, 05/03/25 XRAY (R) KNEE 06/16/23 IN [facility] XRAY (R) KNEE 02/26/21 IN [facility] [...] Use: Not At Risk (01/24/2020) Received from [facility] AUDIT-C Frequency of Alcohol Consumption: Never Average [...] symptoms today at length. Patient states his knees are both functioning well and is pleased with [...] requiring urgent evaluation. documented in this encounter [facility] 03-29-2025 History of Present illness Narrative Images [...] Use: Not At Risk (01/24/2020) Received from [facility] AUDIT-C Frequency of Alcohol Consumption: Never Average [...] requiring urgent evaluation. documented in this encounter [facility] 02-14-2025 Instructions Darrian Dubon MD - 02/14/2025 7:41 AM EDT -PLEASE NOTE THAT WE REVIEW ALL YOUR TEST RESULTS AT YOUR NEXT FOLLOW UP VISIT WITH YOU. IF ANY ABNORMAL LAB REQUIRES SOONER ATTENTION, WE WILL CONTACT YOU. -If you have signed up on MyChart, we will release your test results through Quietly. I wish you the best of health [...] track your nutrition and calcium intake on www.Armut This provides macro and micronutrient intake and requirements. - You can track your calcium intake on Armut or any other calcium tracker of your [...] youtube and copy and paste this link: https://youtu.be/xJNfyCg9wHo This is done by a Physical Medicine and Rehab doctor who is a biblical studies professor in [employer]. She completed a PhD at the [facility] [employer] [facility] [facility] [employer]. I hope you find it helpful. Please take precautions and start gradual when starting a new exercise program. Another reference includes this one: -Dominique RM, Peg Desai J, Ne RL, Agustin SF, Judy EW. Exercise for the prevention of osteoporosis in postmenopausal women: an evidence-based guide to the optimal prescription. Thor J Solar Crew Member. 2019 Jan-Feb;23(2):170-180. doi: 10.1016/j.bjpt.2018.11.011. Epub 2017Oct 07. PMID: 46498481; PMCID: [id number]. - Stress can lead to bone loss. [...] hazelnuts, legumes, soybeans and other beans) - [place] (potatoes, avocados, almonds, peanuts) - Chromium (broccoli, [...] health? Ther Adv Musculoskelet Dis. 2010;3(6):293-300. doi: 10.1177/3159480L37976869. PMID: 92743957; PMCID: [id number]. -SUDHEER Carrillo., NYLA Dodson., Mark, PY. et al. Soy isoflavone intake inhibits bone resorption and stimulates bone formation in menopausal women: meta-analysis of randomized controlled trials. Eur J Clin Nutr 62, 155-161 (2007). https://doi.org/10.1038/sj.cn.132901 8 -Clyde Rosa, Trisha Lara, Bar De Leon et al. Isoflavone intervention and its impact on bone mineral density in postmenopausal women: a systematic review and meta-analysis of randomized controlled trials. Osteoporos Int (2022). https://doi.org/10.1007/a81115-648-536 44-y -Jack Finch, Trisha Lara, Clyde Grant et al. Effects of isoflavone interventions on bone mineral density in postmenopausal women: a systematic review and meta-analysis of randomized controlled trials. Osteoporos Int 31, 3551-4178 (2020). https://doi.org/10.1007/r91731-444-064 76-z - Benefits of consuming soy in whole foods are listed in this article at the PCR website: https://www.pcrm.org/good-nutrition/nu trition-information/ldg-vxj-gutzbm - Prunes have been reported to help with bone density and inflammation, and are also beneficial for the gut microbiome and constipation. -The Prune Study article: Perrin, Sivakumar ALDANA, Jordy NI, Edouard H, Flor KJ, Trey C, Praveena MG, Nakvivi CH, Stewart C. Prunes preserve hip bone mineral density in a 12-month randomized controlled trial in postmenopausal women: the Prune Study. Am J Clin Nutr. 2021Aug 21;116(4):897-910. doi: 10.1093/ajcn/rqrj020. PMID: 91794759. -Benefit to bone density and inflammation: Hebert WYMAN, Perrin, Glory SOLARES, Sivakumar ALDANA, Trey CUBA. The Role of Prunes in Modulating Inflammatory Pathways to Improve Bone Health in Postmenopausal Women. Adv Nutr. 2021Aug 17;13(5):6003-8633. doi: 10.1093/advances/ikyl744. PMID: 45893392; PMCID: MLB9574645. - Information on Vitamin K2: more recently [...] with the exception of Natto (a traditional [place] food made from fermented soybeans) has high [...] of these foods, please consult with your Blow Mold Machine Operator or Physician first. Review of Osteoporosis medications [...] can read more at these [facility] web links: https://my.[facility]/health/ treatments/59385-yaujqvvjzwfcnwi For Fosamax/alendronate: https://.[facility]/health/ drugs/06035-rioeoetsutn-asadead For Actonel/risedronate: https://Hook Mobile.[facility]/health/ drugs/12821-bcxtusnanot-dlsx-izjwmynMa r Reclast/zoledronic acid: https://Hook Mobile.[facility]/health/ drugs/97612-qlehqgqkgx-swcu-jsxdoxuew- kohfno-bgjvtpp-snpkndwvubts -Subcutaneous Prolia: this is one injection every 6 months, given by the nurse in the office. This medication is given emt/dispatcher, indefinitely. Prolia should not be discontinued without [...] looked into transition therapy. Recent study from [facility] Slim et al, 04/11/2020 (PMID: 05849402.The study is ongoing, clinicaltrials.gov; [id number]), reported one infusion of IV Reclast did [...] can read more at these [facility] web links: https://my.[facility].org/health/ drugs/45285-wrhwzlyxm-lysvduaqg Medications that build bone density and prevent [...] can read more at these [facility] web links: For Forteo/teriparatide: https://my.[facility].org/health/ drugs/37508-fcraduwpqmau-emvantifq For Tymlos/abaloparatide: https://my.[facility].org/health/ drugs/35371-xjhltosiyfcrb-brvmdqesf Medication that both prevents bone loss and [...] initiated in patients who have had an PR or stroke in the preceding year or those considered high risk. We may need a clearance from a Bottom Brusher prior to proceeding with this medication in patients who have a cardiovascular disease history. This is only prescribed for 1 year and then needs to be followed by anti-resorptive therapy, according to recommendations. You can read more at these [facility] web links: For Jeannine/romosozumab: https://my.[facility].org/health/ drugs/21013-yeoubupqgvp-arjmjqfsa Other less potent Osteoporosis medications, such as [...] available medications were provided: Link to the [place] College [employer] Rheumatology website at: https://www.rheumatology.org/I-Am-A/Pa tient-Caregiver/Diseases-Conditions/Os teoporosis Link to the [facility] web link at: On Osteoporosis: https://my.[facility].org/health/ diseases/4443-osteoporosis On Osteopenia: https://my.[facility].org/health/ diseases/90892-qcpfjpojdb - Additional information on Bone Health and [...] Osteoporosis Foundation) http://www.osteo.org/osteolinks.asp National Institutes of Health: 4-451-572-BONE The Calcium Information Center: Non-Dairy, Plant based Milk, can contain in1 glass up to 450 mg of calcium (300 to 450 mg) Exampled include Oat Milk, Flax Milk, Sunset Milk, Cashew Milk, Soy Milk, Peas Milk Examples of Food Sources of Calcium from [facility] Food Milligrams (mg) per serving Percent DV* Soymilk, calcium-fortified, 8 ounces 299 30 Cheney juice, calcium-fortified, 6 ounces 261 26 Tofu, firm, made with calcium sulfate, cup* 253 25 Tofu, soft, made with calcium sulfate, cup* 138 14 Wiufu-wk-puz cereal, calcium-fortified, 1 cup 100-1,000 10-100 Turnip greens, fresh, boiled, cup 99 10 Kale, raw, chopped, 1 cup 100 10 Kale, fresh, cooked, 1 cup 94 9 Slovenian cabbage, bok marin, raw, shredded, 1 cup 74 7 Bread, white, 1 slice 73 7 Tortilla, corn, smnji-tm-obgw/marshall, one 6 diameter 46 5 Tortilla, flour, wsomz-cg-qoay/marshall, one 6 diameter 32 3 Bread, whole-wheat, [...] acces this information online at: http://ods.od.nih.gov/factsheets/Calci -[facility]/ Vitamin D: Vitamin D3= cholecalciferol, available over the counter. Dose recommended 800 to 1000 international units daily with a meal; Certain patients require 5142-4806 international units daily and in patients deficient [...] bones. Studies show approximately 50% of [place] men and women are vitamin D deficient [...] Additional Information is available from: [facility] Osteoporosis Information: https://my.[facility].org/departm ents/orthopaedics-rheumatology/depts/o steoporosis-metabolic The Bone Health and Osteoporosis Foundation (formerly the National Osteoporosis Foundation) : https://www.bonehealthandosteoporosis. org International Osteoporosis Foundation: https://www.osteoporosis.foundation http://ods.od.nih.gov/factsheets/vitam ind.asp National Institutes of Health: 8-730-875-BONE The Calcium Information [place]: I recommend following a healthy lifestyle. You [...] that features the Whole Plant Based diet, Dardanelle over knives (see video online and visit website). Another movie that was recently released is: Eating You Alive (you can find it at Luxim) and The Game Changers movie Dr. Fauzia Ansari is a [facility] physician who has done research and published books, is an expert in Whole Plant based diet for prevention and reversal of heart disease. His website is Contemporary Analysis. His research highlights the benefits of the Whole food plant based diet in reversing and preventing heart disease. Mrs. Cookie Ansari (his ) has a cookbook with many recipes on whole plant based food: The Prevent and Reverse Heart Disease cookbook. Cookie and Yamile Reeseluisnickie have a cooking show on YouTube called: Plant-Based with Yamile Coty and Cookie Leongjuditnickie. You can also consider reading his son, Eze Ansari's book: The Engine 2 cookbook Eze is a retired cover operator who has helped many people get healthier by following the whole food plant based diet. Dr. Rock Velazco, has a website and free nagélica to help get started on a whole plant based diet, at www.pcrm.org and you can log on for free for his 21-Day Kickstart with meals and recipes to follow for 21 days. There is also a free angélica for that. He has multiple free videos and YouTube, for example: https://youtu.be/hgvQlfqD1n5 , https://youtu.be/SxBHNexwy6e He has written multiple books, including Power Food for the Brain, The Cheese Trap, Dr. Rock Velazco's Program for Reversing Diabetes, Your Body in Balance You can also watch YouTube channel : The Doc & Paid Search Specialist Dr. Anthony Carlson has shown the benefit of a starch based whole food plant based diet to his Rheumatoid Arthritis patients, as well as patient with diabetes II, hypertension, obesity, multiple sclerosis, heart disease, acne, and other, his website: www.debra.Restorando Dr. Yayo Allred is a renowned physician scientist, who has studied and researched the benefits of the Whole plant based diet. He has also researched the adverse effects of animal proteins on health. He presents many of his research findings in his book The [place] study. Dr. Gerber Becker has completed many research trials proving the reversal of diseases, such as heart disease and early prostate cancer, with healthy lifestyle and the Whole Plant based diet. Dr. Gerber Becker website is: www.carmenVMTurbo.Restorando His new book: Undo It, has evidence based information and guide to following this healthy lifestyle. Dr. Cody Dillon has dedicated a website and additional time to reviewing all food related articles and research and presents them in his power point presentation and on his website at: nutritionfacts.org which is all free. Dr. Dillon has multiple free videos and YouTube, for example https://Zeptoru.be/aSgNkhgVtks and https://Premium Store.be/lXXXygDRyBU. He has written multiple books including: How Not To and How Not To Diet He is now working on his next book: How Not To Age Dr. Danitza Dash (from the [facility]), has articles on the following website: LiveQoS.Restorando For additional ideas on recipes, you could find additional information on practical to follow recipes by reading or watching online and YouTube such as: Paid Search Specialist AJ, Cooking With Plants, The Vegan Corner (recipes from an [place] Paid Search Specialist), The Whole Foods Plant Based Cooking Show and visiting the provided websites for additional information on the whole plant based benefit and cooking recipes. You can also consider watching the vlogs of some of the plant based Athletes such as Fausto Ewing Derek on [employer]. You can find very good recipes for [...] Dr. Jenny Degroot Lifestyle Medicine (is a Bottom Brusher and Lifestyle Medicine Physician) -Sometimes it helps to start with a simple diet of potatoes, that Dr. Carlson calls Yarelis Carrie. You can learn more about that in his website: www.Xtime This is the website for Yarelis Butler pdf : https://www.Xtime/wp-content /uploads//Georgiana-Carrie_Website_Pr int_Version-1.pdf You can also read more on Dr. Carlson's website - When you goal is to lose weight, it is important to listen to your hunger cues. Don't eat until you are stuffed. As soon as you feel you are no longer hungry, stop eating. There is a [place] saying that says Tammie Vega, meaning eat until you are 80% full. I say avoid eating past 80% of your stomach fullness. This originated from the city of [facility], which is one of the sites reported in the [employer] book, one of the highest cities in the world for having the most centenarians. Remember your stomach needs space and capacity for proper digestion of your food. Like a food safety manager or a membership counselor, they have a limit for proper function, and should not be filled to the top. You can read more about that from the [facility] article Don t Eat Until You re Full ? Instead, Mind Your Tammie [place] , at https://health.[facility].org/don p-rmd-hueev-xvyyq-fcua-rgrhcac-mind-yo yj-sdxq-dxsfb-salvador-point/ Most plants contain proteins and all essential [...] a nutrition tracker such as cronometer or Veratectnesspal and others. Dr. Maryan Holguin (a psychiatrist [...] you will need to consult with a marquetry worker to have further evaluation to exclude Celiac [...] - Gentle Yoga Anyone Can Do Anywhere www.Acorio.Restorando/yoga Also on youtube: yoga with Karlie For women, especially after menopause, strength training is important. You can read more on that from Clare Morley, PhD at her website https://www.CoolIT Systems and YouTube videos. If you are a beginner, it is best to start with a physical therapist or personal lines account executive. There are also several Aps that offer [...] can find more at the [facility] Website on : https://Hook Mobile.[facility].org/departm ents/wellness/store/go-well#sleep-tab 4- Stress management, be happy, [...] Timer Meditation Stress Free Now ([facility]). You can find more resources at the [facility] website at : https://Hook Mobile.[facility].org/departm ents/wellness/store/go-well#stress-iron e-tab There are many free youtube videos on guided meditation as well For Breathing techniques: You can watch John Carlisle and learn the breathing technique and its benefits by watching the following YouTube: https://youPlairu.be/9Qi2P-URv04?si=-Xtdfr 4UpsJOUbDU. Learning about your awareness/spiritual being, is [...] work with a psychotherapist or behavioral health college coach. When having a psychiatric condition, it [...] or a higher dose. Raw: Garlic, Cilantro, Seminole nuts, Pumpkin seeds, Ingham seeds and Flax seed powder have been reported to help with certain metal detoxification such as mercury. [place]-3 plant based rich foods are good anti-inflammatory [...] the Whole Plant Based Diet, by watching Dardanelle over GOSO movie and then review website. There are many other resources and educational information on the Whole plant based diet on the Internet and documentaries. There are other resources for wellness that you can also benefit from, such as the [facility] Wellness website, [facility]org and includes Plant based and Mediterranean diet, yoga and meditation. Please avoid all dairy products. You could use non-dairy milk such as Flax milk, Cashew milk, Sunset milk, Rice milk, Oat milk or Hemp [...] below, just add the ingredients to your membership counselor and blend: - Probably the healthiest smoothie is one that contains mostly green leafy vegetables (especially containing kale), some berries, flax seed and water. This might not returns processor to be sweet. You can add one or two pitted dates or a frozen banana for natural sweetness. Examples of healthy green smoothies, pack your membership counselor (at least half way to 3/) with a mix of green leafy veggies, then top your membership counselor with fruits (such as banana or frozen raul or pineapple, peaches, apricots, apples, grapes), a tablespoon of flax or david seeds, then add water or unsweetened coconut water and blend until smooth. You can also add turmeric in this recipe. Do not only use spinach as they tend to be high in oxalates and can be risk for kidney stones. The same with burkinan chards and beet leaves. If you don't [...] health and wellbeing. At the [facility], we work as a team for your care, along with Nurse Practitioners, Physician Assistants, Nurses and Medical Assistants. It is a privilege and honor to serve you. Thank you for choosing The [facility] for your healthcare. Sincerely, Darrian [...] usual activities immediately. documented in this encounter [facility] 02-14-2025 History of Present illness Narrative Images from the original note were not included. FOLLOW UP VISIT Patient's Name: [place] [id number] PCP: [place] [address] [place], [place] [address], [place] [address] Consult Requested by: Jose L Lackey MD [address] [facility] [address] Other physicians: [facility] prev. Nel Lebron MD (his prev. marquetry worker left- Ronald Brown MD) ; Now following [...] BRBPR and denies melena. He follows with [facility] for his UC. [facility] has scopes this summer by his marquetry worker. He is following with Orthopedics for his osteoarthroses and non-inflammatory joint pains. He has a chronic rotator cuff tear and extensive bilateral glenohumeral degenerative disease. His s/p b/l TKR and rt THR. Hissed rate was elevated at 79 04/2024 at time of his pneumonia. He continues on sulfasalazine and Entyvio by his marquetry worker. 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 Has been on Humira since Sep 2020 (started with 80 mg loading dose and since has been on 40 mg every 2 wks) He was pleased with Enbrel response to his RA and later was switched to Humira, reports has similar benefit and is pleased with response. His marquetry worker switched him to Humira for optimal mgt of IBD and he feels this has helped his IBD better. Reports still gets 8 BM's a day, does not have BM at night, does not have to wake up from sleep. Has been following with his marquetry worker for his UC Had colonoscopy 11/22/2021 with reported marked improvement in asc/transv/desc colon and severe active in rectum, histopath with active colitis with erosions. States Dr. Lebron has started him on rectal enemas. Recent colonoscopy with reported active colitis. He tells me that he continues to have multiple BM's; His marquetry worker prescribed pred. course, completed recently. No jt [...] us, he is on Humira per his [facility] He is off Enbrel, was switched to Humira by his marquetry worker. (previously was on Enbrel 25 mg twice a wk and has been in remission since on Enbrel and very pleased with his treatment regimen) He is on Humira 40 mg every 2 wks by his [facility] He is on sulfasalazine, Humira and mesalamine enemas per his marquetry worker I have reviewed benefits of a whole food plant based diet He consumes dairy, cheese, sausage, hamburger. I have advised him on avoiding meats and dairy and reviewed reports and patient experience with flare of IBD and RA, as well as gastrointestinal dysbiosis. I advised him on a whole foods plant based diet. He has a membership counselor ([employer]) and interested in making healthy smoothies and [...] in this patient with known rheumatoid arthritis. Oracle Solutions Architect: CODY Transcribe Date/Time: Feb 20 2021 9:52A [...] felt rt shoulder needed to be stretched. was working in yard, denies injury. Denies jt pains, outside of the left tip of ankle, states feels the top of the left ankle feels like it's jammed up , feels needs to pull bones apart. [facility] is the site where has fallen arch. Has seen General Lithographic Worker in the remote past for the fallen arch, not recently. Feels gets stiff when not moving as much. Denies any injury or trauma. Denies any pain to me today States his marquetry worker has prescribed prednisone course due to IBD flare States after scope was told is flared. He is on sulfasalazine and budesonide and his marquetry worker and since has switched him from Enbrel [...] Alk phos isoenz: liver fraction; followed by marquetry worker He follows with his marquetry worker for hi elev alk phos and AST and for bld with stools, Dr Brown: and states he started him on iron supplement States Dr. Brown prescribed metronidazole, for reported diarrhea. [facility] felt it made a difference. [facility] he gave him enemas and told that is for his ulcerative colitis and prescr. sulfasalazine. In 2018, has also followed with his marquetry worker for blood with stools, and had flex sig and told he was inflamed from his Ulcerative colitis. [facility] had colonosc and EGD in 2018 and was told were good. Told his bld in stools from his UC and patient states notices also mucus when wipes. [facility] had increased his sulfasalazine dose. [facility] also notices that dairy and cheese caused really bad inflammation from these and has avoided since. [facility] also avoids coffee and consumes green [...] systems reviewed and are negative DXA Model: Power Efficiency W [id number] SITE SCANNED: Lumbar spine and left hip [...] were all normal. He follows with his marquetry worker for his ulcerative colitis and is on sulfasalazine. He was told by his marquetry worker to avoid sun exposure due to this med, had skin itching last summer. He had evaluation for elevated AST and alk phos. Alk phos has improved and AST has been borderline elevated. I have advised him to f/u with his marquetry worker for his elevated alk phos (liver fraction) States his marquetry worker did an US of his liver twice and was told was normal. He denies any alcohol consumption or acetaminophens. His isoenzyme indicated predom. of liver origin. The patient reports that his marquetry worker completed evaluation and told his liver is fine. His liver US was unremarkable . His anemia has resolved since his UC has been controlled. States saw his marquetry worker, Dr. Lebron, recently and states told him [...] and denies hematuria or dysuria. DXA Model: Power Efficiency W [id number] SITE SCANNED: Lumbar spine and left hip [...] states not bad . has seen a reacher in the past, in [place], Dr. Whitfield. used to be on Remicade [...] 500mg q 6hrs. Reports benefit and his marquetry worker took him off the iron supplement as his iron was good. [facility] has advised him to avoid all nsaids and recently had discontinued his Celebrex. [facility] has another apt and scheduled for scope next wk Tu. RHEUM. ROS: Joint pain: as above; none currently Joint swelling: as above; none currently Am stiffness: as above; none currently Low back pain: no Dactylitis: no H/o precedent/frequent infection(s): as above Enthesopathy/Castleton's/heel/plantar tenderness: no Skin thickening, psoriasis, photosensitivity, purpura: no Nail changes: no Alpecia, patchy: no; has MPB Eye inflammation: no SICCA: no Oral/nasal/genital ulcers: no GI problems-diarrhea/bleeding/IBD/Gluten intolerence/Dysphagia: as above Raynaud's phenomenon/digital ulcers: no Organ inv-Serositis: no Lung disease/ILD: no Myopathy/proximal muscle weakness: no Abnormal Urine or urethritis: no Renal disease: no CONSULTING SALES EXECUTIVE/PNS disease: no and denies MS HEME-Cytopenias/LAD/Clots: iron [...] Marital Status: Single denies children 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 Lackey Smoking: quit [...] Abs Lymph 1.00 - 4.00 k/uL 3.02 [place]% 9.7 Abs [place] 0.00 - 0.86 k/uL 0.79 Eosin% 0.0 [...] Negative Negative Ketones, Urine Negative Negative Specific [place], Ur 1.005 - 1.030 1.008 Hemoglobin/Blood,Ur Negative 3+ (A) pH, Urine 4.5 - 8.0 6.0 Protein, Urine Negative mg/dL Negative Urobilinogen Normal Normal Nitrites Negative Negative Leukest Negative Negative Comments SEE COMMENT Urine Adan Comment SEE COMMENT WBC, Urine 0 - 5 /HPF 0-5 RBC, Urine 0 - 3 /HPF >25 (A) Sm Antibody <1.0 AI <0.2 APPRENTICESHIP TRAINING REPRESENTATIVE Antibody <1.0 AI 1.2 (H) SSA Antibody <1.0 AI <0.2 SSB Antibody <1.0 AI <0.2 Centromere Ab <1.0 AI <0.2 Scleroderma Ab, IgG <1.0 AI <0.2 Milagro 1 Antibody <1.0 AI <0.2 Ribosomal APPRENTICESHIP TRAINING REPRESENTATIVE <1.0 AI <0.2 Chromatin Antibody <1.0 AI [...] <12 Sm Antibody <1.0 AI <0.2 Ribosomal APPRENTICESHIP TRAINING REPRESENTATIVE <1.0 AI <0.2 Chromatin Antibody <1.0 AI <0.2 SSA Antibody <1.0 AI <0.2 SSB Antibody <1.0 AI <0.2 APPRENTICESHIP TRAINING REPRESENTATIVE Antibody <1.0 AI 1.2 Scleroderma Ab, IgG [...] FINDINGS CONSISTENT WITH CHRONIC SEVERE RHEUMATOID ARTHRITIS. Oracle Solutions Architect: KETTY Transcribe Date/Time: Aug 29 2015 12:56P ... Last XR Ankle - Impression Only XR ANKLE GENERAL 3V AP/LAT/OBL LT Exam End: 02/20/2021 8:42 AM (Final result) Impression: IMPRESSION: Arthritic changes demonstrating interval progression in this patient with known rheumatoid arthritis. Oracle Solutions Architect: CODY Transcribe Date/Time: Feb 20 2021 9:52A [...] its performance characteristics determined by [facility] Path[facility] Laboratory Medicine [place] ([facility]). It has not been cleared or approved by the FDA. RT-[facility] is regulated under CLIA as [...] 147 53 - 334 mg/dL Final MPA [place], Serum Date Value Ref Range Status 08/19/2018 1,020 534 - 1,267 mg/dL Final MPA [place], Serum Date Value Ref Range Status 08/19/2018 551 253 - 653 mg/dL Final MPA [place]/Lambda Ratio Date Value Ref Range Status 08/19/2018 [...] , Gender: Male SCANNER INFORMATION: DXA Model: Power Efficiency W [id number] SITE SCANNED: Lumbar spine and left hip [...] machine for accurate comparison. FOR MORE INFORMATION: [facility]oporosis and Metabolic Bone Disease: www.ccf.org/arthritis/osteo National Osteoporosis Foundation: www.nof.org International Society of Clinical Densitometry www.iscd.org Oracle Solutions Architect: [id number] Transcribe Date/Time: Sep 23 2022 10:28A Dictated [...] Z79.899 On sulfasalazine therapy K51.00 Ulcerative pancolitis ([facility]) Comment: On SSZ and Entyvio per GI [...] in patient's severe chronic Rheumatoid Arthritis. His marquetry worker has switched him to Humira as he [...] to receive intermittent steroid therapy from his marquetry worker. Pharmacologic therapy is still indicated and recommended, [...] Also receives labs per Primary care physician/ [facility] Recheck DXA scheduled 05/2025 -The patient's marquetry worker follows him for his UC, anemia and liver tests. He is on Entyvio and sulfasalazine per his [facility] RA med: none from rheum, doing well on sulfasalazine, prescribed by GI (He was prev. on Enbrel 25 mg sq twice a week, or may switch to Humira if his marquetry worker switched him to Humira TNF inhibitor therapy, [...] on sulfasalazine for his IBD per his marquetry worker OP med: Received Reclast infusion, 5 mg IV on 05/09/2024 well tolerated Further infusions will be determined based on recheck DXA and CTX, or if on systemic steroids. As previously discussed, his OP med of choice is IV Reclast Oral bisphosphonate contraindicated due to his IBD and gastrointestinal disease. Osteoporosis was likely due to previous emt/dispatcher steroid therapy by other physicians over the [...] atypical and subtroch. fracture of femur with snf use of bisphosphonates/alendronate and anti-resorptive agents, there [...] wished to proceed. Previous orders -CONSULT TO MAINTENANCE MECHANIC 2ND SHIFT -CONSULT TO PODIATRY Provided referral to OT for assistive devices, exercises to preserve left function Referral to inventory coordinator for foot/ankle deformities and callus care, inserts/braces/orthotics, [...] with the patient. Radiographs were reviewed at [facility] visit. Additional time was spent outside of the patient visit to review records. today. Assessment and plan were discussed with the patient. Additional time spent with the patient to discuss their questions. Additional time spent with the patient devoted to discussing treatment strategy, planning, implementation and preventive health and wellness recommendations. Time spent included preparing to see the patient, pvaw-vf-awyy patient care, completing clinical documentation, obtaining and/or [...] appropriate immunization recommended. -Continued follow up with marquetry worker for IBD management and monitoring for liver [...] care of your patient. Darrian Fischer MD cc Jose L Lackey MD [address] [place] [address] Medical Decision Making: Problems: Moderate: 2+ stable chronic illnesses Data: Unique source(s) for external note(s) reviewed: 3+ Unique test result(s) reviewed: 3+ Medical Decision Making Level: 4 - Moderate documented in this encounter [facility] 02-14-2025 Note HNO ID: [id number] Author: DARRIAN DUBON MD Service: ? Author Type: Physician Type: Progress Notes Filed: 02/20/2025 17:28 Note Text: FOLLOW UP VISIT Patient's Name: Jam Torres [place] [id number] PCP: Jose L Lackey MD [address] [place], [place] [id number] Consult Requested by: Jose L Lackey MD [address] [place] [address] Other physicians: [facility] prevBrittney Lebron MD (his prev. marquetry worker left- Ronald Brown MD) ; Now following [...] BRBPR and denies melena. He follows with [facility] for his UC. [facility] has scopes this summer by his marquetry worker. He is following with Orthopedics for his osteoarthroses and non-inflammatory joint pains. He has a chronic rotator cuff tear and extensive bilateral glenohumeral degenerative disease. His s/p b/l TKR and rt THR. Hissed rate was elevated at 79 04/2024 at time of his pneumonia. He continues on sulfasalazine and Entyvio by his marquetry worker. 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 Has been on Humira since Sep 2020 (started with 80 mg loading dose and since has been on 40 mg every 2 wks) He was pleased with Enbrel response to his RA and later was switched to Humira, reports has similar benefit and is pleased with response. His marquetry worker switched him to Humira for optimal mgt of IBD and he feels this has helped his IBD better. Reports still gets 8 BM's a day, does not have BM at night, does not have to wake up from sleep. Has been following with his marquetry worker for his UC Had colonoscopy 11/22/2021 with reported marked improvement in asc/transv/desc colon and severe active in rectum, histopath with active colitis with erosions. States Dr. Lebron has started him on rectal enemas. Recent colonoscopy with reported active colitis. He tells me that he continues to have multiple BM's; His marquetry worker prescribed pred. course, completed recently. No jt [...] us, he is on Humira per his [facility] He is off Enbrel, was switched to Humira by his marquetry worker. (previously was on Enbrel 25 mg twice a wk and has been in remission since on Enbrel and very pleased with his treatment regimen) He is on Humira 40 mg every 2 wks by his [facility] He is on sulfasalazine, Humira and mesalamine enemas per his marquetry worker I have reviewed benefits of a whole food plant based diet He consumes dairy, cheese, sausage, hamburger. I have advised him on avoiding meats and dairy and reviewed reports and patient experience with flare of IBD and RA, as well as gastrointestinal dysbiosis. I advised him on a whole foods plant based diet. He has a membership counselor ([employer]) and interested in making healthy smoothies and we have discussed at last visit. He has stopped drinking monster energy drink with water and I advised him to a (more content not included)... [facility] 11-23-2024 Telephone encounter Note Thank you for trying. Since has seen his PCP, he would not need sooner apt with me. thank you kindly, fa [facility] 11-23-2024 Miscellaneous Notes Thank you for trying. [...] Please offer appt with Dr Dubon or SUPERVISOR TELLERS, if patient still interested. Thank you for [...] apt with me or any rheum ANGÉLICA (SUPERVISOR TELLERS or PA) who has opening soon. thank you kindly, fa -Pt returning call to office. Pt identified by name and date. Pt given message as detailed below and verbalized understanding. -States the only trauma/injury he has experienced recently is that he stubbed his RT middle toe 3 days ago. 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 Denies any change in [...] feet/fingers/shoulders Please advise documented in this encounter [facility] 11-23-2024 Telephone encounter Note Patient returned call and can not make it today, seen his PCP for the issue.please advise. [facility] 11-23-2024 Telephone encounter Note Hi Dr. Dubon [...] Jordyn KELLER November 23, 2024 9:03 AM [facility] 11-23-2024 Telephone encounter Note Please offer appt with Dr Dubon or SUPERVISOR TELLERS, if patient still interested. [facility] 11-22-2024 Telephone encounter Note Thank you for [...] apt with me or any rheum ANGÉLICA (SUPERVISOR TELLERS or PA) who has opening soon. thank you kindly, fa [facility] 11-22-2024 Note Urology Office/Clini c Note Chief Complaint referral HPI Staff 59yr old male referred by Dr. Lackey for kidney stones w/ KUB. KUB done at [facility] on 11/14/24. Pt has seen Dr. [...] calculous obstruction) CT AP wo con 10/23/23 [facility] [place] - Approximately 5 to 6 mm proximal [...] URL [facility] [address], [place] [address]- Additional Instructions: f/u pending CT Patient Education [...] Gross hematuria Hea (more content not included)... [facility] Comment on above: Result Comment: Elec [...] toe 3 days ago. 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 Denies any change in [...] Pt then apologized and ended the call. [facility] 11-21-2024 Note Patient Education Nephrology Dietary Guidelines [...] ? 8 oz (237 mL) of milk, epalfca-nteclovqwshu-lppsj milk, and calcium-fortifiedfruit juice. Calcium-fortified means that [...] Spinach (cooked), rhubarb, beets, sweet potatoes, and Northern Irish chard. ? Peanuts. ? Potato chips, burundian fries, and baked potatoes with skin on. ? Nuts and nut products. ? Chocolate. ??? If you regularly take a diuretic medicine, make sure to eat at least 1 or 2 servings of fruits or vegetables that are high in potassium each day. These include: ? Avocado. ? Banana. ? Cheney, prune, carrot, or tomato juice. ? Baked [...] fish oil, or vitamin B6. ??? Take uxdj-vyt-jzqidsy and prescription medicines only as told by your health (more content not included)... [facility] 11-21-2024 Telephone encounter Note Left message requesting return call. [facility] 11-21-2024 Telephone encounter Note Thank you for [...] had before ? thank you kindly, fa [facility] 11-21-2024 Telephone encounter Note Images from the [...] not completely. Pain: Bilateral feet/fingers/shoulders Please advise [facility] 10-05-2024 Instructions Darrian Dubon MD - 10/05/2024 7:56 AM EST -PLEASE NOTE THAT WE REVIEW ALL YOUR TEST RESULTS AT YOUR NEXT FOLLOW UP VISIT WITH YOU. IF ANY ABNORMAL LAB REQUIRES SOONER ATTENTION, WE WILL CONTACT YOU. -If you have signed up on [employer], we will release your test results through Quietly. I wish you the best of health [...] track your nutrition and calcium intake on www.MyRepublic.Restorando This provides macro and micronutrient intake and requirements. - You can track your calcium intake on Getting-inometer.Restorando or any other calcium tracker of your [...] youtube and copy and paste this link: [email or web address] This is done by a Physical Medicine and Rehab doctor who is a biblical studies professor in [employer]. She completed a PhD at the [facility]. I hope you find it helpful. [...] hazelnuts, legumes, soybeans and other beans) - [place] (potatoes, avocados, almonds, peanuts) - Chromium (broccoli, [...] Eur J Clin Nutr 62, 155-161 (2007). https://doi.org/10.1038/sj.ejcn.431360 8 -Clyde Rosa, Trisha Lara, Harry De Leon. et al. Isoflavone intervention and its impact on bone mineral density in postmenopausal women: a systematic review and meta-analysis of randomized controlled trials. Osteoporos Int (2022). https://doi.org/10.1007/f04919-463-190 44-y -Jack Finch, Trisha Lara, Andrez Grant. et al. Effects of isoflavone interventions on bone mineral density in postmenopausal women: a systematic review and meta-analysis of randomized controlled trials. Osteoporos Int 31, 7796-9354 (2020). https://doi.org/10.1007/g07720-592-848 76-z - Benefits of consuming soy in whole foods are listed in this article at the PCR website: https://www.pcrm.org/good-nutrition/nu trition-information/aay-env-qbmthv - Prunes have been reported to help with bone density and inflammation, and are also beneficial for the gut microbiome and constipation. -The Prune Study article: Perrin, Sivakumar ALDANA, Jordy NI, Edouard H, Flor KJ, Trey C, Praveena MG, Nakvivi CH, Stewart C. Prunes preserve hip bone mineral density in a 12-month randomized controlled trial in postmenopausal women: the Prune Study. Am J Clin Nutr. 2021 6;116(4):897-910. doi: 10.1093/ajcn/kmth851. PMID: 29466919. -Benefit to bone density and inflammation: Hebert WYAMN, Perrin, Glory SOLARES, Sivakumar ALDANA, Trey CUBA. The Role of Prunes in Modulating Inflammatory Pathways to Improve Bone Health in Postmenopausal Women. Adv Nutr. 2021 2;13(5):1175-4108. doi: 10.1093/advances/omcw102. PMID: 73694424; PMCID: QDT7653375. - Information on Vitamin K2: more recently [...] with the exception of Natto (a traditional [place] food made from fermented soybeans) has high [...] of these foods, please consult with your Blow Mold Machine Operator or Physician first. Review of Osteoporosis medications [...] in the office. This medication is given emt/dispatcher, indefinitely. Prolia should not be discontinued without [...] looked into transition therapy. Recent study from [facility] Slim et al, 04/11/2020 (PMID: 13485450.The study is ongoing, clinicaltrials.gov; [id number]), reported one infusion of IV Reclast did [...] initiated in patients who have had an PR or stroke in the preceding year or those considered high risk. We may need a clearance from a Bottom Brusher prior to proceeding with this medication in [...] and the different available medications at the [place] [employer] website at: https://www.rheumatology.org/I-Rosita-A/Ernesto wyatt-Caregiver/Diseases-Conditions/Os teoporosis - Additional information on Bone [...] Osteoporosis Foundation) http://www.osteo.org/osteolinks.asp National Institutes of Health: 9-143-243-BONE The Calcium Information Center: Non-Dairy, Plant based Milk, can contain in1 glass up to 450 mg of calcium (300 to 450 mg) Exampled include Oat Milk, Flax Milk, Sunset Milk, Cashew Milk, Soy Milk, Peas Milk Examples of Food Sources of Calcium from NIH Food Milligrams (mg) per serving Percent DV* Soymilk, calcium-fortified, 8 ounces 299 30 [place]ney juice, calcium-fortified, 6 ounces 261 26 Tofu, firm, made with calcium sulfate, cup* 253 25 Tofu, soft, made with calcium sulfate, cup* 138 14 Jpafl-gk-ohu cereal, calcium-fortified, 1 cup 100-1,000 10-100 Turnip greens, fresh, boiled, cup 99 10 Kale, raw, chopped, 1 cup 100 10 Kale, fresh, cooked, 1 cup 94 9 Slovenian cabbage, bok marin, raw, shredded, 1 cup 74 7 Bread, white, 1 slice 73 7 Tortilla, corn, ekfle-is-jnwv/marshall, one 6 diameter 46 5 Tortilla, flour, fmcwu-zu-drhp/marshall, one 6 diameter 32 3 Bread, whole-wheat, [...] daily with a meal; Certain patients require 8856-1414 international units daily and in patients deficient [...] bones. Studies show approximately 50% of [place] men and women are vitamin D deficient [...] Additional Information is available from: [facility] Osteoporosis Information: https://my.[facility].org/departm ents/orthopaedics-rheumatology/depts/o steoporosis-metabolic The Bone Health and Osteoporosis Foundation (formerly the National Osteoporosis Foundation) : https://www.bonehealthandosteoporosis. org International Osteoporosis Foundation: https://www.osteoporosis.foundation http://ods.od.nih.gov/factsheets/vitam ind.asp National Institutes of Health: 9-271-700-BONE [facility] Calcium Information [place]: I recommend following a healthy lifestyle. You [...] track your nutrition and calcium intake on www.Getting-inometer.Restorando This provides macro and micronutrient intake and [...] that features the Whole Plant Based diet, Dardanelle over knives (see video online and visit website). Another movie that was recently released is: Eating You Alive (you can find it at Luxim) and The Hubub ChangeWingu movie Dr. Fauzia Ansari is a [facility] physician who has done research and published books, is an expert in Whole Plant based diet for prevention and reversal of heart disease. His website is Contemporary Analysis. His research highlights the benefits of the Whole food plant based diet in reversing and preventing heart disease. Mrs. Cookie Ansari (his ) has a cookbook with many recipes on whole plant based food: The Prevent and Reverse Heart Disease cookbook. Cookie and Yamile Coty have a cooking show on YouTube called: Plant-Based with Yamile Coty and Cookie Coty. 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 Rock Velazco's Program for Reversing Diabetes, Your Body in Balance You can also watch YouTube channel : The Doc & Paid Search Specialist Dr. Anthony Carlson has shown the benefit of a starch based whole food plant based diet to his Rheumatoid Arthritis patients, as well as patient with diabetes II, hypertension, obesity, multiple sclerosis, heart disease, acne, and other, his website: www.debra.Restorando Dr. Yayo Allred is a renowned physician scientist, who has studied and researched the benefits of the Whole plant based diet. He has also researched the adverse effects of animal proteins on health. He presents many of his research findings in his book The [place] study. Dr. Gerber Becker has completed many research trials proving the reversal of diseases, such as heart disease and early prostate cancer, with healthy lifestyle and the Whole Plant based diet. Dr. Gerber Becker website is: www.carmenVMTurbo.Restorando His new book: Undo It, has evidence based information and guide to following this healthy lifestyle. Dr. Cody Dillon has dedicated a website and additional time to reviewing all food related articles and research and presents them in his power point presentation and on his website at: nutritionfacts.org which is all free. Dr. Dillon has multiple free videos and YouTube, for example https://youPlairu.be/aSgNkhgVtks and https://youPlairu.be/lXXXygDRyBU. He has written multiple books including: How Not To and How Not To Diet He is now working on his next book: How Not To Age Dr. Danitza Dash (from the [facility]), has articles on the following website: LiveQoS.Restorando For additional ideas on recipes, you could find additional information on practical to follow recipes by reading or watching online and YouTube such as: Chef BELLE, Cooking With Plants, The Vegan Corner (recipes from an [place] Paid Search Specialist), The Whole Foods Plant Based Cooking Show and visiting the provided websites for additional information on the whole plant based benefit and cooking recipes. You can also consider watching the vlogs of some of the plant based Athletes such as Fausto Ewing Derek on [employer]. You can find very good recipes for [...] Dr. Jenny Degroot Lifestyle Medicine (is a Bottom Brusher and Lifestyle Medicine Physician) -Sometimes it helps to start with a simple diet of potatoes, that Dr. Carlson calls Yarelis Butler. You can learn more about that in his website: www.Oja.la.Restorando This is the website for Yarelis Butler pdf : https://www.Xtime/wp-content /uploads//Georgiana-Carrie_Website_Pr int_Version-1.pdf You can also read more on Dr. Carlson's website - When you goal is to lose weight, it is important to listen to your hunger cues. Don't eat until you are stuffed. As soon as you feel you are no longer hungry, stop eating. There is a Namibian saying that says Tammie Vega, meaning eat until you are 80% full. I say avoid eating past 80% of your stomach fullness. This originated from the city of [facility], which is one of the sites reported in the [employer] book, one of the highest cities in the world for having the most centenarians. Remember your stomach needs space and capacity for proper digestion of your food. Like a food safety manager or a membership counselor, they have a limit for proper function, and should not be filled to the top. You can read more about that from the [facility] article Don t Eat Until You re Full ? Instead, Mind Your Tammie [place] , at https://health.[facility].org/don k-uby-bfedv-wgklq-nbzh-cotwjrd-mind-yo ie-geay-ryuyw-salvador-annie/ Most plants contain proteins and all essential [...] cronometer or myfitnesspal and others. Dr. Maryan Holgiun (a psychiatrist who suffered with lupus) has [...] you will need to consult with a marquetry worker to have further evaluation to exclude Celiac [...] - Gentle Yoga Anyone Can Do Anywhere www.Acorio.Restorando/yoga Also on youtube: yoga with Karlie For women, especially after menopause, strength training is important. You can read more on that from Clare Morley, PhD at her website https://www.Avimoto.Restorando and YouTube videos. If you are a beginner, it is best to start with a physical therapist or personal lines account executive. There are also several Aps that offer [...] can find more at the [facility] Website on : https://my.[facility].org/departm ents/wellness/store/go-well#sleep-tab 4- Stress management, be happy, [...] Timer Meditation Stress Free Now ([facility]). You can find more resources at the [facility] website at : https://my.[facility].org/departm ents/wellness/store/go-well#stress-iron e-tab There are many free youtube videos on guided meditation as well For Breathing techniques: You can watch John Maylin and learn the breathing technique and its benefits by watching the following YouTube: https://Premium Store.Zhihu/[email or web address]-MKq77?si=-Xtdfr 4UpsJOUbDU. Learning about your awareness/spiritual being, is [...] work with a psychotherapist or behavioral health college coach. When having a psychiatric condition, it [...] or a higher dose. Raw: Garlic, Cilantro, Seminole nuts, Pumpkin seeds, Ingham seeds and Flax seed powder have been reported to help with certain metal detoxification such as mercury. [place]-3 plant based rich foods are good anti-inflammatory [...] the Whole Plant Based Diet, by watching Dardanelle over GOSO movie and then review website. There are many other resources and educational information on the Whole plant based diet on the Internet and documentaries. There are other resources for wellness that you can also benefit from, such as the [facility] Wellness website, [facility] and includes Plant based and Mediterranean diet, yoga and meditation. Please avoid all dairy products. You could use non-dairy milk such as Flax milk, Cashew milk, Sunset milk, Rice milk, Oat milk or Hemp [...] below, just add the ingredients to your membership counselor and blend: - Probably the healthiest smoothie is one that contains mostly green leafy vegetables (especially containing kale), some berries, flax seed and water. This might not returns processor to be sweet. You can add one or two pitted dates or a frozen banana for natural sweetness. Examples of healthy green smoothies, pack your membership counselor (at least half way to 3/4) with a mix of green leafy veggies, then top your membership counselor with fruits (such as banana or frozen raul or pineapple, peaches, apricots, apples, grapes), a tablespoon of flax or david seeds, then add water or unsweetened coconut water and blend until smooth. You can also add turmeric in this recipe. Do not only use spinach as they tend to be high in oxalates and can be risk for kidney stones. The same with burkinan chards and beet leaves. If you don't [...] health and wellbeing. At the [facility], we work as a team for your care, along with Nurse Practitioners, Physician Assistants, Nurses and Medical Assistants. It is a privilege and honor to serve you. Thank you for choosing The [facility] for your healthcare. Sincerely, Darrian [...] usual activities immediately. documented in this encounter [facility] 10-05-2024 Note HNO ID: [id number] Author: DARRIAN DUBON MD Service: ? Author Type: Physician Type: Progress Notes Filed: 10/16/2024 19:47 Note Text: FOLLOW UP VISIT Patient's Name: Jam Torres [facility] [id number] PCP: Jose L Lackey MD [address] [place] [phone] Consult Requested by: Jose L Lackey MD [address] [place] [id number] Other physicians: Traveling Missionary prev. Nel Lebron MD (his prev. 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 Has been on Humira since Sep 2020 (started with 80 mg loading dose and since has been on 40 mg every 2 wks) He was pleased with Enbrel response to his RA and later was switched to Humira, reports has similar benefit and is pleased with response. His marquetry worker switched him to Humira for optimal mgt of IBD and he feels this has helped his IBD better. Reports still gets 8 BM's a day, does not have BM at night, does not have to wake up from sleep. Has been following with his marquetry worker for his UC Had colonoscopy 11/22/2021 with reported marked improvement in asc/transv/desc colon and severe active in rectum, histopath with active colitis with erosions. States Dr. Lebron has started him on rectal enemas. Recent colonoscopy with reported active colitis. He tells me that he continues to have multiple BM's; His marquetry worker prescribed pred. course, completed recently. No jt [...] us, he is on Humira per his Traveling Missionary He is off Enbrel, was switched to Humira by his marquetry worker. (previously was on Enbrel 25 mg twice a wk and has been in remission since on Enbrel and very pleased with his treatment regimen) He is on Humira 40 mg every 2 wks by his Traveling Missionary He is on sulfasalazine, Humira and mesalamine enemas per his marquetry worker I have reviewed benefits of a whole food plant based diet He consumes dairy, cheese, sausage, hamburger. I have advised him on avoiding meats and dairy and reviewed reports and patient experience with flare of IBD and RA, as well as gastrointestinal dysbiosis. I advised him on a whole foods plant based diet. He has a membership counselor ([employer]) and interested in making healthy smoothies [...] I have ad (more content not included)... [facility] 10-05-2024 History of Present illness Narrative Images from the original note were not included. FOLLOW UP VISIT Patient's Name: [facility] [id number] PCP: Jose L Lackey MD [address] [place] [phone] Consult Requested by: Jose L Lackey MD [address] [place] [id number] Other physicians: [facility]ing Missionary prev. Nel Lebron MD (his prev. 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 Has been on Humira since Sep 2020 (started with 80 mg loading dose and since has been on 40 mg every 2 wks) He was pleased with Enbrel response to his RA and later was switched to Humira, reports has similar benefit and is pleased with response. His marquetry worker switched him to Humira for optimal mgt of IBD and he feels this has helped his IBD better. Reports still gets 8 BM's a day, does not have BM at night, does not have to wake up from sleep. Has been following with his marquetry worker for his UC Had colonoscopy 11/22/2021 with reported marked improvement in asc/transv/desc colon and severe active in rectum, histopath with active colitis with erosions. States Dr. Lebron has started him on rectal enemas. Recent colonoscopy with reported active colitis. He tells me that he continues to have multiple BM's; His marquetry worker prescribed pred. course, completed recently. No jt [...] us, he is on Humira per his Traveling Mission[facility] He is off Enbrel, was switched to Humira by his marquetry worker. (previously was on Enbrel 25 mg twice a wk and has been in remission since on Enbrel and very pleased with his treatment regimen) He is on Humira 40 mg every 2 wks by his [facility]ing Missionary He is on sulfasalazine, Humira and mesalamine enemas per his marquetry worker I have reviewed benefits of a whole food plant based diet He consumes dairy, cheese, sausage, hamburger. I have advised him on avoiding meats and dairy and reviewed reports and patient experience with flare of IBD and RA, as well as gastrointestinal dysbiosis. I advised him on a whole foods plant based diet. He has a membership counselor ([employer]) and interested in making healthy smoothies and [...] in this patient with known rheumatoid arthritis. Oracle Solutions Architect: CODY Transcribe Date/Time: Feb 20 2021 9:52A [...] , feels needs to pull bones apart. [facility] is the site where has fallen arch. Has seen General Lithographic Worker in the remote past for the fallen arch, not recently. Feels gets stiff when not moving as much. Denies any injury or trauma. Denies any pain to me today States his marquetry worker has prescribed prednisone course due to IBD flare States after scope was told is flared. He is on sulfasalazine and budesonide and his marquetry worker and since has switched him from Enbrel [...] Alk phos isoenz: liver fraction; followed by marquetry worker He follows with his marquetry worker for hi elev alk phos and AST and for bld with stools, Dr Brown: and states he started him on iron supplement States Dr. Brown prescribed metronidazole, for reported diarrhea. [facility] felt it made a difference. [facility] he gave him enemas and told that is for his ulcerative colitis and prescr. sulfasalazine. In 2019, has also followed with his marquetry worker for blood with stools, and had flex sig and told he was inflamed from his Ulcerative colitis. [facility] had colonosc and EGD in 2018 and was told were good. Told his bld in stools from his UC and patient states notices also mucus when wipes. [facility] had increased his sulfasalazine dose. [facility] also notices that dairy and cheese caused really bad inflammation from these and has avoided since. [facility] also avoids coffee and consumes green [...] systems reviewed and are negative DXA Model: Power Efficiency W [id number] SITE SCANNED: Lumbar spine and left hip [...] were all normal. He follows with his marquetry worker for his ulcerative colitis and is on sulfasalazine. He was told by his marquetry worker to avoid sun exposure due to this med, had skin itching last summer. He had evaluation for elevated AST and alk phos. Alk phos has improved and AST has been borderline elevated. I have advised him to f/u with his marquetry worker for his elevated alk phos (liver fraction) States his marquetry worker did an US of his liver twice and was told was normal. He denies any alcohol consumption or acetaminophens. His isoenzyme indicated predom. of liver origin. The patient reports that his marquetry worker completed evaluation and told his liver is fine. His liver US was unremarkable . His anemia has resolved since his UC has been controlled. States saw his marquetry worker, Dr. Lebron, recently and states told him [...] and denies hematuria or dysuria. DXA Model: Power Efficiency W [id number] SITE SCANNED: Lumbar spine and left hip [...] states not bad . has seen a reacher in the past, in [place], Dr. Whitfield. [...] 2015, reports bld with stools and diarrhea. yrs ago had abd cramps that resolve with BM, but does not recall these symptoms in the past. had EGD and colonoscopy and was told had ulcer of lower gastrointestinal tract and diagnosed with UC. Patient unaware if biopsies were done. Treatment: ant-acid in am, omeprazole, states they recommended also mesalamine enema and sulfasalazine 500mg q 6hrs. Reports benefit and his marquetry worker took him off the iron supplement as [...] Dactylitis: no H/o precedent/frequent infection(s): as above Enthesopathy/Castleton's/heel/plantar tenderness: no Skin thickening, psoriasis, photosensitivity, purpura: no Nail changes: no Alpecia, patchy: no; has MPB Eye inflammation: no SICCA: no Oral/nasal/genital ulcers: no GI problems-diarrhea/bleeding/IBD/Gluten intolerence/Dysphagia: as above Raynaud's phenomenon/digital ulcers: no Organ inv-Serositis: no Lung disease/ILD: no Myopathy/proximal muscle weakness: no Abnormal Urine or urethritis: no Renal disease: no CONSULTING SALES EXECUTIVE/PNS disease: no and denies MS HEME-Cytopenias/LAD/Clots: iron [...] Marital Status: Single denies children 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 Lackey Smoking: quit [...] Abs Lymph 1.00 - 4.00 k/uL 3.02 [place]% 9.7 Abs [place] 0.00 - 0.86 k/uL 0.79 Eosin% 0.0 [...] Negative Negative Ketones, Urine Negative Negative Specific [place], Ur 1.005 - 1.030 1.008 Hemoglobin/Blood,Ur Negative 3+ (A) pH, Urine 4.5 - 8.0 6.0 Protein, Urine Negative mg/dL Negative Urobilinogen Normal Normal Nitrites Negative Negative Leukest Negative Negative Comments SEE COMMENT Urine Adan Comment SEE COMMENT WBC, Urine 0 - 5 /HPF 0-5 RBC, Urine 0 - 3 /HPF >25 (A) Sm Antibody <1.0 AI <0.2 APPRENTICESHIP TRAINING REPRESENTATIVE Antibody <1.0 AI 1.2 (H) SSA Antibody <1.0 AI <0.2 SSB Antibody <1.0 AI <0.2 Centromere Ab <1.0 AI <0.2 Scleroderma Ab, IgG <1.0 AI <0.2 Milagro 1 Antibody <1.0 AI <0.2 Ribosomal APPRENTICESHIP TRAINING REPRESENTATIVE <1.0 AI <0.2 Chromatin Antibody <1.0 AI [...] <12 Sm Antibody <1.0 AI <0.2 Ribosomal APPRENTICESHIP TRAINING REPRESENTATIVE <1.0 AI <0.2 Chromatin Antibody <1.0 AI <0.2 SSA Antibody <1.0 AI <0.2 SSB Antibody <1.0 AI <0.2 APPRENTICESHIP TRAINING REPRESENTATIVE Antibody <1.0 AI 1.2 Scleroderma Ab, IgG [...] FINDINGS CONSISTENT WITH CHRONIC SEVERE RHEUMATOID ARTHRITIS. Oracle Solutions Architect: [facility] Transcribe Date/Time: Aug 29 2015 12:56P ... Last XR Ankle - Impression Only XR ANKLE GENERAL 3V AP/LAT/OBL LT Exam End: 02/20/2021 8:42 AM (Final result) Impression: IMPRESSION: Arthritic changes demonstrating interval progression in this patient with known rheumatoid arthritis. Oracle Solutions Architect: CODY Transcribe Date/Time: Feb 20 2021 9:52A [...] its performance characteristics determined by [facility]'s [facility] Path[facility] Laboratory Medicine [place] ([facility]). It has not been cleared or approved by the FDA. RT-PLPR is regulated under CLIA as qualified to [...] 147 53 - 334 mg/dL Final MPA [place], Serum Date Value Ref Range Status 08/19/2018 1,020 534 - 1,267 mg/dL Final MPA [place], Serum Date Value Ref Range Status 08/19/2018 551 253 - 653 mg/dL Final MPA [place]/Lambda Ratio Date Value Ref Range Status 08/19/2018 [...] , Gender: Male SCANNER INFORMATION: DXA Model: Power Efficiency W [id number] SITE SCANNED: Lumbar spine and left hip [...] www.nof.org International Society of Clinical Densitometry www.iscd.org Oracle Solutions Architect: [id number] Transcribe Date/Time: Sep 23 2022 10:28A Dictated [...] in patient's severe chronic Rheumatoid Arthritis. His marquetry worker has switched him to Humira as he [...] to receive intermittent steroid therapy from his marquetry worker. Pharmacologic therapy is still indicated and recommended, [...] Also received labs per Primary care physician, Traveling Missionary -The patient's marquetry worker follows him for his UC, anemia and liver tests. He is on Entyvio and sulfasalazine per his Traveling Missionary RA med: none from rheum, doing well on sulfasalazine, prescribed by GI (He was prev. on Enbrel 25 mg sq twice a week, or may switch to Humira if his marquetry worker switched him to Humira TNF inhibitor therapy, [...] on sulfasalazine for his IBD per his marquetry worker OP med: Received Reclast infusion, 5 mg IV on 05/09/2024 well tolerated Further infusions will be determined based on recheck DXA and CTX, or if on systemic steroids. As previously discussed, his OP med of choice is IV Reclast Oral bisphosphonate contraindicated due to his IBD and gastrointestinal disease. Osteoporosis was likely due to previous emt/dispatcher steroid therapy by other physicians over the [...] atypical and subtroch. fracture of femur with snf use of bisphosphonates/alendronate and anti-resorptive agents, there [...] wished to proceed. Previous orders -CONSULT TO MAINTENANCE MECHANIC 2ND SHIFT -CONSULT TO PODIATRY Provided referral to OT for assistive devices, exercises to preserve left function Referral to inventory coordinator for foot/ankle deformities and callus care, inserts/braces/orthotics, [...] which included preparing to see the patient, [id number] patient care, completing clinical documentation, obtaining and/or [...] appropriate immunization recommended. -Continued follow up with marquetry worker for IBD management and monitoring for liver [...] care of your patient. Darrian Fischer MD cc Jose L Lackey MD [address] [facility] [id number] documented in this encounter [facility] 05-09-2024 History of Present illness [...] current infection? No documented in this encounter [facility] 05-09-2024 Instructions Nidia Ascencio APRN.RISK AND 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 - 05/09/2024 9:45 AM EDT -PLEASE NOTE THAT WE REVIEW ALL YOUR TEST RESULTS AT YOUR NEXT FOLLOW UP VISIT WITH YOU. IF ANY ABNORMAL LAB REQUIRES SOONER ATTENTION, WE WILL CONTACT YOU. -If you have signed up on [employer], we will release your test results through Quietly. I wish you the best of health [...] and sulfasalazine, but discuss first with your marquetry worker. Supplements recommended Vitamin B12: 500 to 1000 [...] track your nutrition and calcium intake on www.MyRepublic.Restorando This provides macro and micronutrient intake and requirements. - You can track your calcium intake on Armut or any other calcium tracker of your [...] now for a cost, such as at www.HearToday.Org. -When eating a whole food plant based [...] track your nutrition and calcium intake on www.Getting-inometer.Restorando This provides macro and micronutrient intake and [...] that features the Whole Plant Based diet, Dardanelle over knives (see video online and visit website). Another movie that was recently released is: Eating You Alive (you can find it at Luxim) and The Game Changers movie Dr. Fauzia Ansari is a [facility] physician who is an expert in Whole Plant based diet. His website is Contemporary Analysis. His research highlights the benefits of the Whole food plant based diet in reversing and preventing heart disease. Mrs. Ansari (his ) has a cookbook with many recipes on whole plant based food: The Prevent and Reverse Heart Disease cookbook. You can also consider reading his son, Eze Ansari's book: The Engine 2 cookbook Eze is a retired cover operator who has helped many people get healthier by following the whole food plant based diet. Dr. Rock Velazco, has a website and free angélica to help get started on a whole plant based diet, at www.pcrSanrad.org and you can log on for free for his 21-Day Kickstart with meals and recipes to follow for 21 days. There is also a free angélica for that. He has multiple free videos and YouTube, for example: https://youtu.be/krfNsenE4u2 , https://youPlairu.be/CxBLLokde5r He has written multiple books, including Power [...] heart disease, acne, and other, his website: www.debra.Restorando Dr. Yayo Allred is a renowned physician scientist, who has studied and researched the benefits of the Whole plant based diet. He has also researched the adverse effects of animal proteins on health. He presents many of his research findings in his book The [place] study. Dr. Gerber Becker has completed many research trials proving the reversal of diseases, such as heart disease and early prostate cancer, with healthy lifestyle and the Whole Plant based diet. Dr. Gerber Becker website is: www.dagoberto.Restorando His new book: Undo It, has evidence based information and guide to following this healthy lifestyle. Dr. Cody Dillon has dedicated a website and additional time to reviewing all food related articles and research and presents them in his power point presentation and on his website at: nutritionfacts.org which is all free. Dr. Dillon has multiple free videos and YouTube, for example https://youMedImpact Healthcare Systems.be/aSgNkhgVtks and https://youMedImpact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 Game Changers movie Dr. Fauzia Ansari is a [facility] physician who is an expert in Whole Plant based diet. His website is Contemporary Analysis. His research highlights the benefits of the Whole food plant based diet in reversing and preventing heart disease. Mrs. Ansari (his ) has a cookbook with many recipes on whole plant based food: The Prevent and Reverse Heart Disease cookbook. You can also consider reading his son, Eze Ansari's book: The Engine 2 cookbook Eze is a retired cover operator who has helped many people get [...] multiple free videos and YouTube, for example: https://youtu.be/[email or web address] , https://youtu.be/[email or web address] He has written multiple books, including Power [...] heart disease, acne, and other, his website: [email or web address].[email or web address] Dr. Yayo Allred is a renowned physician scientist, who has studied and researched the benefits of the Whole plant based diet. He has also researched the adverse effects of animal proteins on health. He presents many of his research findings in his book The [place] study. Dr. Gerber Becker has completed many research trials proving the reversal of diseases, such as heart disease and early prostate cancer, with healthy lifestyle and the Whole Plant based diet. Dr. Gerber Becker website is: [email or web address] His new book: Undo It, has evidence based information and guide to following this healthy lifestyle. Dr. Cody Dillon has dedicated a website and additional time to reviewing all food related articles and research and presents them in his power point presentation and on his website at: nutritionfacts.org which is all free. Dr. Dillon has multiple free videos and YouTube, for example https://youMedImpact Healthcare Systems.be/aSgNkhgVtks and https://Premium Store.be/lXXXygDRyBU. He has written multiple books including: How Not To and How Not To Diet He is now working on his next book: How Not To Age Dr. Danitza Dash (from the [facility]), has articles on the following website: Youtego Also, you could find additional information on practical to follow recipes by reading or watching online and YouTube such as: Paid Search Specialist AJ, Cooking With Plants, The Vegan Corner (recipes from an Gibraltarian Paid Search Specialist), The Whole Foods Plant Based Cooking Show and visiting the provided websites for additional information on the whole plant based benefit and cooking recipes. You can also consider watching the vlogs of some of the plant based Athletes such as Fausto Ewing Derek on [employer]. Dr. Maryan Holguin (a psychiatrist who suffered [...] - Gentle Yoga Anyone Can Do Anywhere www.[email or web address]/yoga Also on youtube: yoga with Karlie 3- [...] or a higher dose. Raw: Garlic, Cilantro, Seminole nuts, Pumpkin seeds, Ingham seeds and Flax seed powder have been reported to help with certain metal detoxification such as mercury. [place]-3 plant based rich foods are good anti-inflammatory [...] the Whole Plant Based Diet, by watching Dardanelle over GOSO movie and then review website. There are many other resources and educational information on the Whole plant based diet on the Internet and documentaries. There are other resources for wellness that you can also benefit from, such as the [facility] Wellness website, [facility] and includes Plant based and Mediterranean diet, yoga and meditation. Please avoid all dairy products. You could use non-dairy milk such as Flax milk, Cashew milk, Sunset milk, Rice milk, Oat milk or Hemp [...] Osteoporosis Foundation) http://www.osteo.org/osteolinks.asp National Institutes of Health: 4-549-189-BONE The Calcium Information Center: -Non-Dairy, Plant based Milk, can contain in1 glass up to 450 mg of calcium (300 to 450 mg) Exampled include Oat Milk, Flax Milk, Sunset Milk, Cashew Milk, Soy Milk, Peas Milk general health and well being Examples of Food Sources of Calcium from NIH Food Milligrams (mg) per serving Percent DV* Soymilk, calcium-fortified, 8 ounces 299 30 Cheney juice, calcium-fortified, 6 ounces 261 26 Tofu, firm, made with calcium sulfate, cup* 253 25 Tofu, soft, made with calcium sulfate, cup* 138 14 Lxrhr-nu-mte cereal, calcium-fortified, 1 cup 100-1,000 10-100 Turnip greens, fresh, boiled, cup 99 10 Kale, raw, chopped, 1 cup 100 10 Kale, fresh, cooked, 1 cup 94 9 Slovenian cabbage, bok marin, raw, shredded, 1 cup 74 7 Bread, white, 1 slice 73 7 Tortilla, corn, qlcct-sl-vtqy/marshall, one 6 diameter 46 5 Tortilla, flour, cxogu-cp-tqhp/marshall, one 6 diameter 32 3 Bread, whole-wheat, 1 slice 30 3 Broccoli, raw, cup 21 2 * DV = Daily Value. DVs were developed by the U.S. Food and Drug Administration to help consumers compare the nutrient contents among products within the context of a total daily diet. The U.S. Department of Agriculture s (Bolt.io s) Nutrient Database Web site lists the [...] daily with a meal; Certain patients require 2640-5905 iu daily and in patients deficient in [...] bones. Studies show approximately 50% of [place] men and women are vitamin D deficient [...] available from: www.nof.org (the national osteoporosis foundation) http://www.[facility].org/leesa storm/osteo/info.htm http://ods.od.nih.gov/factsheets/vitam ind.asp [place] [employer] of Health: 3-281-999-BONE [facility] Information [place]: Review of Osteoporosis medications Medications that prevent [...] atypical and subtroch. fracture of femur with emt/dispatcher use of bisphosphonates/alendronate and anti-resorptive agents, there [...] and answer all OP questions. At the [facility], we work as a team for your care, along with Nurse Practitioners, Physician Assistants, Nurses and Medical Assistants. It is a privilege and honor to serve you. Thank you for choosing The [facility] for your healthcare. Sincerely, Nidia Ascencio APRN.RISK AND 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 PAST MEDICAL HISTORY Diagnosis Date Monoclonal gammopathy [...] its performance characteristics determined by [facility]'s [facility] Laboratory Medicine [place] ([facility]). It has [...] 147 53 - 334 mg/dL Final MPA [place], Serum Date Value Ref Range Status 08/19/2018 1,020 534 - 1,267 mg/dL Final MPA Lambda, Serum Date Value Ref Range Status 08/19/2018 551 253 - 653 mg/dL Final MPA [place]/Lambda Ratio Date Value Ref Range Status 08/19/2018 [...] , Gender: Male SCANNER INFORMATION: DXA Model: Power Efficiency W [id number] SITE SCANNED: Lumbar spine and left hip [...] www.nof.org International Society of Clinical Densitometry www.iscd.org Oracle Solutions Architect: [id number] Transcribe Date/Time: Sep 23 2022 10:28A Dictated by : DARRIAN DUBON MD This examination was interpreted and the report reviewed and electronically signed by: DARRIAN DUBON MD on Sep 28 2022 6:46PM EST documented in this encounter [facility] 02-16-2024 Miscellaneous Notes Spoke with [...] Abs Lymph 1.00 - 4.00 k/uL 1.84 [place]% % 7.3 Abs [place] <0.87 k/uL 0.59 E[place]% % 0.1 Abs [...] U/L 211 (H) documented in this encounter [facility] 05-05-2023 Miscellaneous Notes Faxed dental clearance letter to [facility] [phone]. LMOM for patient to call the office [...] 2023 3:18 PM Spoke with Reggie at [facility], Letter can be faxed to Dr Mil Farrell for signing at [phone]. Please call for dental clearance All procedures complete, infection free, no upcoming dental procedure and ok with dentist prior to reclast If they need a letter may make one for them to send back [facility] [phone] documented in this encounter [facility] 05-04-2023 Instructions Nidia Ascencio APRN.JOSE - 05/04/2023 12:16 PM EDT -PLEASE NOTE THAT WE REVIEW ALL YOUR TEST RESULTS AT YOUR NEXT FOLLOW UP VISIT WITH YOU. IF ANY ABNORMAL LAB REQUIRES SOONER ATTENTION, WE WILL CONTACT YOU. -If you have signed up on Home Delivery Service (HDS)hart, we will release your test results through Quietly. I wish you the best of health [...] and sulfasalazine, but discuss first with your marquetry worker. Supplements recommended Vitamin B12: 500 to 1000 [...] track your nutrition and calcium intake on [email or web address] This provides macro and micronutrient intake and requirements. - You can track your calcium intake on Armut or any other calcium tracker of your [...] now for a cost, such as at www.HearToday.Org. -When eating a whole food plant based [...] that features the Whole Plant Based diet, Dardanelle over knives (see video online and visit website). Another movie that was recently released is: Eating You Alive (you can find it at BlueCava.Restorando) and The Game Changers movie Dr. Fauzia Ansari is a [facility] physician who is an expert in Whole Plant based diet. His website is Contemporary Analysis. His research highlights the benefits of the Whole food plant based diet in reversing and preventing heart disease. Mrs. Ansari (his ) has a cookbook with many recipes on whole plant based food: The Prevent and Reverse Heart Disease cookbook. You can also consider reading his son, Eze Ansari's book: The Engine 2 cookbook Eze is a retired cover operator who has helped many people get healthier by following the whole food plant based diet. Dr. Rock Velazco, has a website and free angélica to help get started on a whole plant based diet, at www.[email or web address].be2 and you can log on for free for his 21-Day Kickstart with meals and recipes to follow for 21 days. There is also a free angélica for that. He has multiple free videos and YouTube, for example: https://youtu.be/sgmKwhbT0m7 , https://youtu.be/[email or web address] He has written multiple books, including Power [...] heart disease, acne, and other, his website: [email or web address] Dr. Yayo Allred is a renowned physician scientist, who has studied and researched the benefits of the Whole plant based diet. He has also researched the adverse effects of animal proteins on health. He presents many of his research findings in his book The [place] study. Dr. Gerber Becker has completed many research trials proving the reversal of diseases, such as heart disease and early prostate cancer, with healthy lifestyle and the Whole Plant based diet. Dr. Gerber Becker website is: [email or web address] His new book: Undo It, has evidence [...] Dr. Danitza Dash (from the [facility]), has articles on the following website: Youtego Also, you could find additional information on practical to follow recipes by reading or watching online and YouTube such as: Paid Search Specialist AJ, Cooking With Plants, The Vegan Corner (recipes from an [place]arian Paid Search Specialist), The Whole Foods Plant Based Cooking Show and visiting the provided websites for additional information on the whole plant based benefit and cooking recipes. You can also consider watching the vlogs of some of the plant based Athletes such as Fausto Ewing Derek on [employer]. Dr. Maryan Holguin (a psychiatrist who suffered [...] - Gentle Yoga Anyone Can Do Anywhere www.[email or web address]/yoga Also on youtube: yoga with Karlie 3- [...] or a higher dose. Raw: Garlic, Cilantro, Seminole nuts, Pumpkin seeds, Ingham seeds and Flax seed powder have been reported to help with certain metal detoxification such as mercury. [place]-3 plant based rich foods are good anti-inflammatory [...] the Whole Plant Based Diet, by watching Dardanelle over GOSO movie and then review website. There are many other resources and educational information on the Whole plant based diet on the Internet and documentaries. There are other resources for wellness that you can also benefit from, such as the [facility] Wellness website, [facility] and includes Plant based and Mediterranean diet, yoga and meditation. Please avoid all dairy products. You could use non-dairy milk such as Flax milk, Cashew milk, Sunset milk, Rice milk, Oat milk or Hemp [...] following resources: www.nof.org (National Osteoporosis Foundation) http://www.osteo.org/osteolinks.asp [place] Institutes of Health: 5-508-556-BONE The Calcium Information [place]: -Non-Dairy, Plant based Milk, can contain in1 glass up to 450 mg of calcium (300 to 450 mg) Exampled include Oat Milk, Flax Milk, Sunset Milk, Cashew Milk, Soy Milk, Peas Milk general health and well being Examples of Food Sources of Calcium from [facility] Food Milligrams (mg) per serving Percent DV* Soymilk, calcium-fortified, 8 ounces 299 30 Cheney juice, calcium-fortified, 6 ounces 261 26 Tofu, firm, made with calcium sulfate, cup* 253 25 Tofu, soft, made with calcium sulfate, cup* 138 14 Lscgr-kc-jpi cereal, calcium-fortified, 1 cup 100-1,000 10-100 Turnip greens, fresh, boiled, cup 99 10 Kale, raw, chopped, 1 cup 100 10 Kale, fresh, cooked, 1 cup 94 9 Slovenian cabbage, bok marin, raw, shredded, 1 cup 74 7 Bread, white, 1 slice 73 7 Tortilla, corn, jhavo-yw-syhy/marshall, one 6 diameter 46 5 Tortilla, flour, zfbvo-bo-zwxg/marshall, one 6 diameter 32 3 Bread, whole-wheat, [...] daily with a meal; Certain patients require 3368-3426 iu daily and in patients deficient in [...] bones. Studies show approximately 50% of [place] men and women are vitamin D deficient [...] national osteoporosis foundation) http://www.[facility].org/arthrit is/osteo/info.htm http://ods.od.nih.gov/factsheets/vitam ind.asp [place] [facility]: 2-439-913-BONE [facility] Calcium Information [place]: At the [facility], we work as a team for your care, along with Nurse Practitioners, Physician Assistants, Nurses and Medical Assistants. It is a privilege and honor to serve you. Thank you for choosing [facility] for your healthcare. Sincerely, Nidia Ascencio APRN.JOSE documented in this encounter [facility] 05-04-2023 History of Present illness Narrative Follow [...] was there Goes back fitting denture 09/09 [facility] [phone] GI - colitis 03/23 Had colonoscopy - [...] in patient's severe chronic Rheumatoid Arthritis. His marquetry worker has switched him to Humira as he [...] IBD and intermittent steroid therapy from his marquetry worker. Pharmacologic therapy is still indicated and recommended, [...] if necessary, CC, NOF and ISCD and [facility]. PLAN: [facility] on 05/04/23 VITAMIN D 25 HYDROXY RENAL FUNCTION PANEL MONOCLONAL PROT UR W/INTERP Labs prior to next visit Reclast - You are on entyvio and sulfasalazine for your Ulcerative Colitis. These are also treating your Rheumatoid Arthritis. During infections you will need to hold the entyvio and sulfasalazine, but discuss first with your marquetry worker. Supplements recommended Vitamin B12: 500 to 1000 [...] in the office. This medication is given snf, indefinitely. Prolia should not be discontinued without [...] looked into transition therapy. Recent study from [facility] Slim et al, 04/11/2020, reported one [...] initiated in patients who have had an PR or stroke in the preceding year. This [...] atypical and subtroch. fracture of femur with emt/dispatcher use of bisphosphonates/alendronate and anti-resorptive agents, there [...] in the care of your patient. Nidia Ascencio APRN.[facility] Jose L Lackey MD, MD Patient Instructions -PLEASE NOTE THAT WE REVIEW ALL YOUR TEST RESULTS AT YOUR NEXT FOLLOW UP VISIT WITH YOU. IF ANY ABNORMAL LAB REQUIRES SOONER ATTENTION, WE WILL CONTACT YOU. -If you have signed up on Quietly, we will release your test results through Quietly. I wish you the best of health [...] and sulfasalazine, but discuss first with your marquetry worker. Supplements recommended Vitamin B12: 500 to 1000 [...] track your nutrition and calcium intake on www.Armut This provides macro and micronutrient intake and requirements. - You can track your calcium intake on Armut or any other calcium tracker of your [...] now for a cost, such as at www.HearToday.Org. -When eating a whole food plant based [...] track your nutrition and calcium intake on www.[email or web address] This provides macro and micronutrient intake and [...] that features the Whole Plant Based diet, Dardanelle over knives (see video online and visit website). Another movie that was recently released is: Eating You Alive (you can find it at Luxim) and The Game Changers movie Dr. Fauzia Ansari is a [facility] physician who is an expert in Whole Plant based diet. His website is Contemporary Analysis. His research highlights the benefits of the Whole food plant based diet in reversing and preventing heart disease. Mrs. Ansari (his ) has a cookbook with many recipes on whole plant based food: The Prevent and Reverse Heart Disease cookbook. You can also consider reading his son, Eze Ansari's book: The Engine 2 cookbook Eze is a retired cover operator who has helped many people get healthier by following the whole food plant based diet. Dr. Rock Velazco, has a website and free angélica to help get started on a whole plant based diet, at www.Keelvar.org and you can log on for free for his 21-Day Kickstart with meals and recipes to follow for 21 days. There is also a free angélica for that. He has multiple free videos and YouTube, for example: https://youtu.be/[email or web address] , https://youtu.be/[email or web address] He has written multiple books, including [employer] for the Brain, The Cheese Trap, Dr. Rock Velazco's Program for Reversing Diabetes, Your Body in Balance Dr. Anthony Carlson has shown the benefit of a starch based whole food plant based diet to his Rheumatoid Arthritis patients, as well as patient with diabetes II, hypertension, obesity, multiple sclerosis, heart disease, acne, and other, his website: [email or web address] Dr. Yayo Allred is a renowned physician scientist, who has studied and researched the benefits of the Whole plant based diet. He has also researched the adverse effects of animal proteins on health. He presents many of his research findings in his book The [place] study. Dr. Gerber Becker has completed many research trials proving the reversal of diseases, such as heart disease and early prostate cancer, with healthy lifestyle and the Whole Plant based diet. Dr. Gerber Becker website is: [email or web address] His new book: Undo It, has evidence [...] Dr. Danitza Dash (from the [facility]), has articles on the following website: LiveQoS.Restorando Also, you could find additional information on practical to follow recipes by reading or watching online and YouTube such as: Paid Search Specialist AJ, Cooking With Plants, The Vegan Corner (recipes from an [place]arian Paid Search Specialist), The Whole Foods Plant Based Cooking Show and visiting the provided websites for additional information on the whole plant based benefit and cooking recipes. You can also consider watching the vlogs of some of the plant based Athletes such as Graeme Kamara, Fausto Marmolejo, Agustin on [employer]. Dr. Maryan Holguin (a psychiatrist who suffered [...] - Gentle Yoga Anyone Can Do Anywhere www.Acorio.[email or web address]/yoga Also on youtube: yoga with Karlie 3- [...] or a higher dose. Raw: Garlic, Cilantro, Seminole nuts, Pumpkin seeds, Ingham seeds and Flax seed powder have been reported to help with certain metal detoxification such as mercury. [place]-3 plant based rich foods are good anti-inflammatory [...] the Whole Plant Based Diet, by watching Dardanelle over GOSO movie and then review website. There are many other resources and educational information on the Whole plant based diet on the Internet and documentaries. There are other resources for wellness that you can also benefit from, such as the [facility] Wellness website, [facility] and includes Plant based and Mediterranean diet, yoga and meditation. Please avoid all dairy products. You could use non-dairy milk such as Flax milk, Cashew milk, Sunset milk, Rice milk, Oat milk or Hemp [...] (National Osteoporosis Foundation) http://www.osteo.org/osteolinks.asp [facility]: 8-887-210-BONE [facility] Calcium Information [place]: -Non-Dairy, Plant based Milk, can contain in1 glass up to 450 mg of calcium (300 to 450 mg) Exampled include Oat Milk, Flax Milk, Sunset Milk, Cashew Milk, Soy Milk, Peas Milk general health and well being Examples of Food Sources of Calcium from [facility] Food Milligrams (mg) per serving Percent DV* Soymilk, calcium-fortified, 8 ounces 299 30 Cheney juice, calcium-fortified, 6 ounces 261 26 Tofu, firm, made with calcium sulfate, cup* 253 25 Tofu, soft, made with calcium sulfate, cup* 138 14 Dmnfd-ou-qps cereal, calcium-fortified, 1 cup 100-1,000 10-100 Turnip greens, fresh, boiled, cup 99 10 Kale, raw, chopped, 1 cup 100 10 Kale, fresh, cooked, 1 cup 94 9 Slovenian cabbage, bok marin, raw, shredded, 1 cup 74 7 Bread, white, 1 slice 73 7 Tortilla, corn, oojek-ut-wrrj/marshall, one 6 diameter 46 5 Tortilla, flour, khlwo-oe-nvru/marshall, one 6 diameter 32 3 Bread, whole-wheat, [...] acces this information online at: http://ods.od.nih.gov/factsheets/Calci -[facility]/ Vitamin D: Vitamin D3= cholecalciferol, available over the counter. Dose recommended 800 to 1000 iu daily with a meal; Certain patients require 9951-8674 iu daily and in patients deficient in [...] bones. Studies show approximately 50% of [place] men and women are vitamin D deficient [...] national osteoporosis foundation) http://www.[facility].org/leesa is/osteo/info.htm http://ods.od.nih.gov/factsheets/vitam ind.asp [place] [facility]: 2-049-377-BONE The Calcium Information Center: At the [facility], we work as a team for your care, along with Nurse Practitioners, Physician Assistants, Nurses and Medical Assistants. It is a privilege and honor to serve you. Thank you for choosing [facility] for your healthcare. Sincerely, Nidia Ascencio APRN.RISK AND 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 PAST MEDICAL HISTORY Diagnosis Date Monoclonal gammopathy [...] in am, 3 noon, 2 pm), per marquetry worker No current facility-administered medications for this visit. [...] its performance characteristics determined by [facility]'s [facility] Pathology and Laboratory Medicine [place] ([facility]). It has not been cleared or approved by the FDA. -[facility] is regulated under CLIA as [...] low and may indicate hypogonadism (from NEJM 2009 363:123-135). Results >320 ng/dL are considered normal. [...] 147 53 - 334 mg/dL Final MPA [place], Serum Date Value Ref Range Status 08/19/2018 1,020 534 - 1,267 mg/dL Final MPA Lambda, Serum Date Value Ref Range Status 08/19/2018 551 253 - 653 mg/dL Final MPA [place]/Lambda Ratio Date Value Ref Range Status 08/19/2018 [...] Sep 23 2022 10:03AM LN 0804 - BD DXA - AXIAL SKELETON / PROCEDURE REASON: multiple diagnoses * * * * Physician Interpretation * * * * EXAMINATION: DXA BONE DENSITOMETRY BD DXA - AXIAL SKELETON PATIENT DEMOGRAPHICS: Age: 57 years, Race: , Gender: Male SCANNER INFORMATION: DXA Model: Power Efficiency W [id number] SITE SCANNED: Lumbar spine and left hip [...] machine for accurate comparison. FOR MORE INFORMATION: [facility] Osteoporosis and Metabolic Bone Disease: www.ccf.org/arthritis/osteo National Osteoporosis Foundation: www.nof.org International Society of Clinical Densitometry www.iscd.org Oracle Solutions Architect: [id number] Transcribe Date/Time: Sep 23 2022 10:28A Dictated by : DARRIAN DUBON MD This examination was interpreted and the report reviewed and electronically signed by: DARRIAN DUBON MD on Sep 28 2022 6:46PM EST documented in this encounter [facility] 03-02-2023 Instructions Nidia Ascencio APRN.JOSE - 03/02/2023 11:10 AM EDT -PLEASE NOTE THAT WE REVIEW ALL YOUR TEST RESULTS AT YOUR NEXT FOLLOW UP VISIT WITH YOU. IF ANY ABNORMAL LAB REQUIRES SOONER ATTENTION, WE WILL CONTACT YOU. -If you have signed up on Quietly, we will release your test results through Quietly. I wish you the best of health [...] and sulfasalazine, but discuss first with your marquetry worker. Supplements recommended Vitamin B12: 500 to 1000 [...] track your nutrition and calcium intake on [email or web address].MyRepublic.Restorando This provides macro and micronutrient intake and requirements. - You can track your calcium intake on Getting-inometer.Restorando or any other calcium tracker of your [...] now for a cost, such as at www.HearToday.Org. -When eating a whole food plant based [...] that features the Whole Plant Based diet, Dardanelle over knives (see video online and visit website). Another movie that was recently released is: Eating You Alive (you can find it at Luxim) and The Hubub ChangeWingu movie Dr. Fauzia Ansari is a [facility] physician who is an expert in Whole Plant based diet. His website is Contemporary Analysis. His research highlights the benefits of the Whole food plant based diet in reversing and preventing heart disease. Mrs. Ansari (his ) has a cookbook with many recipes on whole plant based food: The Prevent and Reverse Heart Disease cookbook. You can also consider reading his son, Eze Ansari's book: The Engine 2 cookbook Eze is a retired cover operator who has helped many people get [...] multiple free videos and YouTube, for example: https://youtu.be/pldWflrO2l5 , https://youtu.be/ZbELGwuaa6w He has written multiple books, including Power [...] heart disease, acne, and other, his website: [email or web address].debra.[email or web address] Dr. Yayo Allred is a renowned physician scientist, who has studied and researched the benefits of the Whole plant based diet. He has also researched the adverse effects of animal proteins on health. He presents many of his research findings in his book The [place] study. Dr. Gerber Becker has completed many research trials proving the reversal of diseases, such as heart disease and early prostate cancer, with healthy lifestyle and the Whole Plant based diet. Dr. Gerber Becker website is: [email or web address].[email or web address] His new book: Undo It, has evidence based information and guide to following this healthy lifestyle. Dr. Cody Dillon has dedicated a website and additional time to reviewing all food related articles and research and presents them in his power point presentation and on his website at: nutritionfacts.org which is all free. Dr. Dillon has multiple free videos and YouTube, for example https://Premium Store.be/aSgNkhgVtks and https://Premium Store.be/lXXXygDRyBU. He has written multiple books including: How Not To and How Not To Diet He is now working on his next book: How Not To Age Dr. Danitza Dash (from the [facility]), has articles on the following website: LiveQoS.Restorando Also, you could find additional information on practical to follow recipes by reading or watching online and YouTube such as: Paid Search Specialist AJ, Cooking With Plants, The Vegan Corner (recipes from an [place]raltarian Paid Search Specialist), The Whole Foods Plant Based Cooking Show and visiting the provided websites for additional information on the whole plant based benefit and cooking recipes. You can also consider watching the vlogs of some of the plant based Athletes such as Fausto Ewing Derek on [employer]. Dr. Maryan Holguin (a psychiatrist who [...] - Gentle Yoga Anyone Can Do Anywhere www.Mytonomy/yoga Also on youtube: yoga with Karlie 3- [...] or a higher dose. Raw: Garlic, Cilantro, Seminole nuts, Pumpkin seeds, Ingham seeds and Flax seed powder have been reported to help with certain metal detoxification such as mercury. [place]-3 plant based rich foods are good anti-inflammatory [...] the Whole Plant Based Diet, by watching Dardanelle over GOSO movie and then review website. There are many other resources and educational information on the Whole plant based diet on the Internet and documentaries. There are other resources for wellness that you can also benefit from, such as the [facility] Wellness website, [facility]org and includes Plant based and Mediterranean diet, yoga and meditation. Please avoid all dairy products. You could use non-dairy milk such as Flax milk, Cashew milk, Sunset milk, Rice milk, Oat milk or Hemp [...] Osteoporosis Foundation) http://www.osteo.org/osteolinks.asp National Institutes of Health: 5-251-101-BONE The Calcium Information Center: -Non-Dairy, Plant based Milk, can contain in1 glass up to 450 mg of calcium (300 to 450 mg) Exampled include Oat Milk, Flax Milk, Sunset Milk, Cashew Milk, Soy Milk, Peas Milk general health and well being Examples of Food Sources of Calcium from NIH Food Milligrams (mg) per serving Percent DV* Soymilk, calcium-fortified, 8 ounces 299 30 Cheney juice, calcium-fortified, 6 ounces 261 26 Tofu, firm, made with calcium sulfate, cup* 253 25 Tofu, soft, made with calcium sulfate, cup* 138 14 Uvjvw-lz-gmt cereal, calcium-fortified, 1 cup 100-1,000 10-100 Turnip greens, fresh, boiled, cup 99 10 Kale, raw, chopped, 1 cup 100 10 Kale, fresh, cooked, 1 cup 94 9 Slovenian cabbage, bok marin, raw, shredded, 1 cup 74 7 Bread, white, 1 slice 73 7 Tortilla, corn, dogsd-qd-rpyq/marshall, one 6 diameter 46 5 Tortilla, flour, algwm-pt-hjpa/marshall, one 6 diameter 32 3 Bread, whole-wheat, [...] daily with a meal; Certain patients require 4968-7319 iu daily and in patients deficient in [...] bones. Studies show approximately 50% of [place] men and women are vitamin D deficient [...] is/osteo/info.htm http://ods.od.nih.gov/factsheets/vitam ind.asp National Institutes of Health: 4-460-043-BONE The Calcium Information [place]: At the [facility], we work as a team for your care, along with Nurse Practitioners, Physician Assistants, Nurses and Medical Assistants. It is a privilege and honor to serve you. Thank you for choosing The [facility] for your healthcare. Sincerely, Nidia Ascencio APRN.JOSE documented in this encounter [facility] 03-02-2023 History of Present illness Narrative Follow [...] in patient's severe chronic Rheumatoid Arthritis. His marquetry worker has switched him to Humira as he [...] IBD and intermittent steroid therapy from his marquetry worker. Pharmacologic therapy is still indicated and recommended, [...] if necessary, CC, NOF and ISCD and [facility]. PLAN: No orders found for this visit on 03/02/23. Please continue on yout Vitamin D 5000 international units once daily with meals and your multivitamin - You are on Humira and sulfasalazine for your Ulcerative Colitis. These are also treating your Rheumatoid Arthritis. During infections you will need to hold the Humira and sulfasalazine, but discuss first with your marquetry worker. Supplements recommended Vitamin B12: 500 to 1000 [...] in the office. This medication is given emt/dispatcher, indefinitely. Prolia should not be discontinued without [...] looked into transition therapy. Recent study from [facility] Slim et al, 04/11/2020, reported one [...] initiated in patients who have had an PR or stroke in the preceding year. This [...] atypical and subtroch. fracture of femur with emt/dispatcher use of bisphosphonates/alendronate and anti-resorptive agents, there [...] in the care of your patient. Nidia Ascencio APRN.[facility] cc Jose L Lackey MD, MD Patient Instructions -PLEASE NOTE THAT WE REVIEW ALL YOUR TEST RESULTS AT YOUR NEXT FOLLOW UP VISIT WITH YOU. IF ANY ABNORMAL LAB REQUIRES SOONER ATTENTION, WE WILL CONTACT YOU. -If you have signed up on Quietly, we will release your test results through Quietly. I wish you the best of health [...] and sulfasalazine, but discuss first with your marquetry worker. Supplements recommended Vitamin B12: 500 to 1000 [...] track your nutrition and calcium intake on www.Armut This provides macro and micronutrient intake and requirements. - You can track your calcium intake on Armut or any other calcium tracker of your [...] now for a cost, such as at www.HearToday.Org. -When eating a whole food plant based [...] that features the Whole Plant Based diet, Dardanelle over knives (see video online and visit website). Another movie that was recently released is: Eating You Alive (you can find it at BlueCava.Restorando) and The Game Changers movie Dr. Fauzia Ansari is a [facility] physician who is an expert in Whole Plant based diet. His website is Contemporary Analysis. His research highlights the benefits of the Whole food plant based diet in reversing and preventing heart disease. Mrs. Ansari (his ) has a cookbook with many recipes on whole plant based food: The Prevent and Reverse Heart Disease cookbook. You can also consider reading his son, Eze Ansari's book: The Engine 2 cookbook Eze is a retired cover operator who has helped many people get healthier by following the whole food plant based diet. Dr. Rock Velazco, has a website and free angélica to help get started on a whole plant based diet, at www.Keelvar.be2 and you can log on for free for his 21-Day Kickstart with meals and recipes to follow for 21 days. There is also a free angélica for that. He has multiple free videos and YouTube, for example: https://youMedImpact Healthcare Systems.be/wxaUnfgC3w8 , https://youMedImpact Healthcare Systems.be/OwBVHedvd4b He has written multiple books, including Power [...] heart disease, acne, and other, his website: www.debra.[email or web address] Dr. Yayo Allred is a renowned physician scientist, who has studied and researched the benefits of the Whole plant based diet. He has also researched the adverse effects of animal proteins on health. He presents many of his research findings in his book The [place] study. Dr. Gerber Becker has completed many research trials proving the reversal of diseases, such as heart disease and early prostate cancer, with healthy lifestyle and the Whole Plant based diet. Dr. Gerber Becker website is: [email or web address].[email or web address] His new book: Undo It, has evidence [...] videos and YouTube, for example https://youtu.be/aSgNkhgVtks and https://youPlairu.be/lXXXygDRyBU. He has written multiple books including: How Not To and How Not To Diet He is now working on his next book: How Not To Age Dr. Danitza Dash (from the [facility]), has articles on the following website: Youtego Also, you could find additional information on practical to follow recipes by reading or watching online and YouTube such as: Paid Search Specialist AJ, Cooking With Plants, The Vegan Corner (recipes from an [place]ral[place]arian Paid Search Specialist), The Whole Foods Plant Based Cooking Show and visiting the provided websites for additional information on the whole plant based benefit and cooking recipes. You can also consider watching the vlogs of some of the plant based Athletes such as Fausto Ewing Derek on [employer]. Dr. Maryan Holguin (a psychiatrist who suffered [...] - Gentle Yoga Anyone Can Do Anywhere www.Mytonomy/yoga Also on youtube: yoga with Karlie 3- [...] or a higher dose. Raw: Garlic, Cilantro, Seminole nuts, Pumpkin seeds, Ingham seeds and Flax seed powder have been reported to help with certain metal detoxification such as mercury. [place]-3 plant based rich foods are good anti-inflammatory [...] the Whole Plant Based Diet, by watching Dardanelle over Knives movie and then review website. There are many other resources and educational information on the Whole plant based diet on the Internet and documentaries. There are other resources for wellness that you can also benefit from, such as the [facility] Wellness website, curtisclinic.org and includes Plant based and Mediterranean diet, yoga and meditation. Please avoid all dairy products. You could use non-dairy milk such as Flax milk, Cashew milk, Sunset milk, Rice milk, Oat milk or Hemp [...] following resources: www.nof.org (National Osteoporosis Foundation) http://www.osteo.org/osteolinks.asp [place] Institutes of Health: 6-329-388-BONE The Calcium Information [place]: -Non-Dairy, Plant based Milk, can contain in1 glass up to 450 mg of calcium (300 to 450 mg) Exampled include Oat Milk, Flax Milk, Sunset Milk, Cashew Milk, Soy Milk, Peas Milk general health and well being Examples of Food Sources of Calcium from [facility] Food Milligrams (mg) per serving Percent DV* Soymilk, calcium-fortified, 8 ounces 299 30 Cheney juice, calcium-fortified, 6 ounces 261 26 Tofu, firm, made with calcium sulfate, cup* 253 25 Tofu, soft, made with calcium sulfate, cup* 138 14 Hhpvd-jy-otg cereal, calcium-fortified, 1 cup 100-1,000 10-100 Turnip greens, fresh, boiled, cup 99 10 Kale, raw, chopped, 1 cup 100 10 Kale, fresh, cooked, 1 cup 94 9 Slovenian cabbage, bok marin, raw, shredded, 1 cup 74 7 Bread, white, 1 slice 73 7 Tortilla, corn, pnkpt-ti-zsqh/marshall, one 6 diameter 46 5 Tortilla, flour, ljjar-vv-kfmm/marshall, one 6 diameter 32 3 Bread, whole-wheat, [...] daily with a meal; Certain patients require 2390-4824 iu daily and in patients deficient in [...] bones. Studies show approximately 50% of [place] men and women are vitamin D deficient [...] available from: www.nof.org (the national osteoporosis foundation) http://www.curtisclinic.org/arthrit is/osteo/info.htm http://ods.od.nih.gov/factsheets/vitam ind.asp [facility]: 0-643-682-BONE [facility] Calcium Information [place]: At the [facility], we work as a team for your care, along with Nurse Practitioners, Physician Assistants, Nurses and Medical Assistants. It is a privilege and honor to serve you. Thank you for choosing [facility] for your healthcare. Sincerely, Nidia Ascencio APRN.RISK AND 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 PAST MEDICAL HISTORY Diagnosis Date Monoclonal gammopathy [...] mg subcutaneously every 2 weeks. Prescribed by Traveling Missionary : Nel Lebron MD Previously prescr. by [...] in am, 3 noon, 2 pm), per marquetry worker No current facility-administered medications for this visit. [...] its performance characteristics determined by [facility]'s [facility] [place] ([facility]). It has not been cleared or approved by the FDA. -[facility] is regulated under CLIA as qualified to perform high-complexity testing. This test is used for clinical purposes. It should not be regarded as investigational or for research. Testosterone Date Value Ref Range Status 08/19/2018 387 193 - 824 ng/dL Final Comment: A testosterone level in the 193-320 ng/dL range with associated clinical symptoms is considered low and may indicate hypogonadism (from [facility] 2010 [id number]). Results >320 ng/dL are considered [...] 147 53 - 334 mg/dL Final [facility] [place], Serum Date Value Ref Range Status 08/19/2018 1,020 534 - 1,267 mg/dL Final [facility]PA [place], Serum Date Value Ref Range Status 08/19/2018 551 253 - 653 mg/dL Final [facility] [place]/Lambda Ratio Date Value Ref Range Status 08/19/2018 [...] , Gender: Male SCANNER INFORMATION: DXA Model: Power Efficiency W [id number] SITE SCANNED: Lumbar spine and left hip [...] machine for accurate comparison. FOR MORE INFORMATION: [facility] Osteoporosis and Metabolic Bone Disease: www.ccf.org/arthritis/osteo National Osteoporosis Foundation: www.nof.org International Society of Clinical Densitometry www.iscd.org Oracle Solutions Architect: [id number] Transcribe Date/Time: Sep 23 2022 10:28A Dictated by : DARRIAN DUBON MD This examination was interpreted and the report reviewed and electronically signed by: DARRIAN DUBON MD on Sep 28 2022 6:46PM EST documented in this encounter [facility] 01-15-2023 Miscellaneous Notes Lm regarding results and recommendations. Please call patient Normal vit d Please continue current dose Received outside lab results from Zbigniew Mullen ordered by Nidia Ascencio CNP -- 01/12/23 Vit D 40.2 documented in this encounter [facility] 01-11-2023 Instructions Nidia Ascencio APRN.CNP - 01/11/2023 7:57 PM EST -PLEASE NOTE THAT WE REVIEW ALL YOUR TEST RESULTS AT YOUR NEXT FOLLOW UP VISIT WITH YOU. IF ANY ABNORMAL LAB REQUIRES SOONER ATTENTION, WE WILL CONTACT YOU. -If you have signed up on Quietly, we will release your test results through Quietly. I wish you the best of health [...] and sulfasalazine, but discuss first with your marquetry worker. Supplements recommended Vitamin B12: 500 to 1000 [...] track your nutrition and calcium intake on www.Armut This provides macro and micronutrient intake and requirements. - You can track your calcium intake on Armut or any other calcium tracker of your [...] now for a cost, such as at www.HearToday.Org. -When eating a whole food plant based [...] that features the Whole Plant Based diet, Dardanelle over knives (see video online and visit website). Another movie that was recently released is: Eating You Alive (you can find it at Luxim) and The Guvera movie Dr. Fauzia Ansari is a [facility] physician who is an expert in Whole Plant based diet. His website is Contemporary Analysis. His research highlights the benefits of the Whole food plant based diet in reversing and preventing heart disease. Mrs. Ansari (his ) has a cookbook with many recipes on whole plant based food: The Prevent and Reverse Heart Disease cookbook. You can also consider reading his son, Eze Ansari's book: The Engine 2 cookbook Eze is a retired cover operator who has helped many people get healthier by following the whole food plant based diet. Dr. Rock Velazco, has a website and free angélica to help get started on a whole plant based diet, at www.Keelvar.org and you can log on for free for his 21-Day Kickstart with meals and recipes to follow for 21 days. There is also a free angélica for that. He has multiple free videos and YouTube, for example: https://Premium Store.Zhihu/mhvHeqoA1x3 , https://Premium Store.be/DjLOQnicd5v He has written multiple books, including Power [employer] for the Brain, The Cheese Trap, Dr. Rock Velazco's Program for Reversing Diabetes, Your Body in Balance Dr. Anthony Carlson has shown the benefit of a starch based whole food plant based diet to his Rheumatoid Arthritis patients, as well as patient with diabetes II, hypertension, obesity, multiple sclerosis, heart disease, acne, and other, his website: www.magnoliaONE Changeangel.Restorando Dr. Yayo Allred is a renowned physician scientist, who has studied and researched the benefits of the Whole plant based diet. He has also researched the adverse effects of animal proteins on health. He presents many of his research findings in his book The [place] study. Dr. Gerber Becker has completed many research trials proving the reversal of diseases, such as heart disease and early prostate cancer, with healthy lifestyle and the Whole Plant based diet. Dr. Gerber Becker website is: www.[email or web address].Restorando His new book: Undo It, has evidence based information and guide to following this healthy lifestyle. Dr. Cody Dillon has dedicated a website and additional time to reviewing all food related articles and research and presents them in his power point presentation and on his website at: nutritionfacts.org which is all free. Dr. Dillon has multiple free videos and YouTube, for example https://youPlairu.be/aSgNkhgVtks and https://youMedImpact Healthcare Systems.be/lXXXygDRyBU. He has written multiple books including: How Not To and How Not To Diet He is now working on his next book: How Not To Age Dr. Danitza Dash (from the [facility]), has articles on the following website: Youtego Also, you could find additional information on practical to follow recipes by reading or watching online and YouTube such as: Paid Search Specialist AJ, Cooking With Plants, The Vegan Corner (recipes from an [place]arian Paid Search Specialist), The Whole Foods Plant Based Cooking Show and visiting the provided websites for additional information on the whole plant based benefit and cooking recipes. You can also consider watching the vlogs of some of the plant based Athletes such as Fausto Ewing Derek on [employer]. Dr. Maryan Holguin (a psychiatrist who suffered [...] - Gentle Yoga Anyone Can Do Anywhere www.Acorio.Restorando/yoga Also on youtube: yoga with Karlie 3- [...] or a higher dose. Raw: Garlic, Cilantro, Seminole nuts, Pumpkin seeds, Ingham seeds and Flax seed powder have been reported to help with certain metal detoxification such as mercury. [place]-3 plant based rich foods are good anti-inflammatory [...] the Whole Plant Based Diet, by watching Dardanelle over GOSO movie and then review website. There are many other resources and educational information on the Whole plant based diet on the Internet and documentaries. There are other resources for wellness that you can also benefit from, such as the [facility] Wellness website, curtisclinic.org and includes Plant based and Mediterranean diet, yoga and meditation. Please avoid all dairy products. You could use non-dairy milk such as Flax milk, Cashew milk, Sunset milk, Rice milk, Oat milk or Hemp [...] Osteoporosis Foundation) http://www.osteo.org/osteolinks.asp National Institutes of Health: 0-683-987-BONE The Calcium Information [place]: -Non-Dairy, Plant based Milk, can contain in1 glass up to 450 mg of calcium (300 to 450 mg) Exampled include Oat Milk, Flax Milk, Sunset Milk, Cashew Milk, Soy Milk, Peas Milk general health and well being Examples of Food Sources of Calcium from [facility] Food Milligrams (mg) per serving Percent DV* Soymilk, calcium-fortified, 8 ounces 299 30 Cheney juice, calcium-fortified, 6 ounces 261 26 Tofu, firm, made with calcium sulfate, cup* 253 25 Tofu, soft, made with calcium sulfate, cup* 138 14 Bswqq-fq-onp cereal, calcium-fortified, 1 cup 100-1,000 10-100 Turnip greens, fresh, boiled, cup 99 10 Kale, raw, chopped, 1 cup 100 10 Kale, fresh, cooked, 1 cup 94 9 Slovenian cabbage, bok marin, raw, shredded, 1 cup 74 7 Bread, white, 1 slice 73 7 Tortilla, corn, evxei-zk-sehx/marshall, one 6 diameter 46 5 Tortilla, flour, bsgin-cb-agpd/marshall, one 6 diameter 32 3 Bread, whole-wheat, [...] acces this information online at: http://ods.od.nih.gov/factsheets/Calci -[facility]/ Vitamin D: Vitamin D3= cholecalciferol, available over the counter. Dose recommended 800 to 1000 iu daily with a meal; Certain patients require 8267-0001 iu daily and in patients deficient in [...] bones. Studies show approximately 50% of [place] men and women are vitamin D deficient [...] national osteoporosis foundation) http://www.clevelandclinic.org/arthrit is/osteo/info.htm http://ods.od.nih.gov/factsheets/vitam ind.asp [place] Institutes of Health: 2-034-169-BONE [facility] Calcium Information [place]: At the [facility], we work as a team for your care, along with Nurse Practitioners, Physician Assistants, Nurses and Medical Assistants. It is a privilege and honor to serve you. Thank you for choosing [facility] for your healthcare. Sincerely, Nidia Ascencio APRN.JOSE documented in this encounter [facility] 12-29-2022 History of Present illness Narrative Follow [...] in patient's severe chronic Rheumatoid Arthritis. His marquetry worker has switched him to Humira as he [...] has not been able to completed in 2018 or since and is looking into dental [...] IBD and intermittent steroid therapy from his marquetry worker. Pharmacologic therapy is still indicated and recommended, [...] if necessary, CC, NOF and ISCD and [facility]. PLAN: [facility] on 12/29/22 VITAMIN D 25 HYDROXY Please continue on yout Vitamin D 5000 international units once daily with meals and your multivitamin - You are on Humira and sulfasalazine for your Ulcerative Colitis. These are also treating your Rheumatoid Arthritis. During infections you will need to hold the Humira and sulfasalazine, but discuss first with your marquetry worker. Supplements recommended Vitamin B12: 500 to 1000 [...] in the office. This medication is given snf, indefinitely. Prolia should not be discontinued without [...] looked into transition therapy. Recent study from [facility] Slim et al, 04/11/2020, reported one [...] initiated in patients who have had an PR or stroke in the preceding year. This [...] atypical and subtroch. fracture of femur with emt/dispatcher use of bisphosphonates/alendronate and anti-resorptive agents, there [...] which included preparing to see the patient, [id number] patient care, completing clinical documentation, obtaining and/or [...] in the care of your patient. Nidia Ascencio APRN.[facility] cc Jose L Lackey MD, MD Patient Instructions -PLEASE NOTE THAT WE REVIEW ALL YOUR TEST RESULTS AT YOUR NEXT FOLLOW UP VISIT WITH YOU. IF ANY ABNORMAL LAB REQUIRES SOONER ATTENTION, WE WILL CONTACT YOU. -If you have signed up on Quietly, we will release your test results through Quietly. I wish you the best of health [...] and sulfasalazine, but discuss first with your marquetry worker. Supplements recommended Vitamin B12: 500 to 1000 [...] track your nutrition and calcium intake on [email or web address] This provides macro and micronutrient intake and requirements. - You can track your calcium intake on [place]ut or any other calcium tracker of your [...] now for a cost, such as at www.HearToday.Org. -When eating a whole food plant based [...] track your nutrition and calcium intake on [email or web address].[email or web address] This provides macro and micronutrient intake and [...] that features the Whole Plant Based diet, Dardanelle over knives (see video online and visit website). Another movie that was recently released is: Eating You Alive (you can find it at Luxim) and The Game Changers movie Dr. Fauzia Ansari is a [facility] physician who is an expert in Whole Plant based diet. His website is Contemporary Analysis. His research highlights the benefits of the Whole food plant based diet in reversing and preventing heart disease. Mrs. Ansari (his ) has a cookbook with many recipes on whole plant based food: The Prevent and Reverse Heart Disease cookbook. You can also consider reading his son, Eze Ansari's book: The Engine 2 cookbook Eze is a retired cover operator who has helped many people get healthier by following the whole food plant based diet. Dr. Rock Velazco, has a website and free angélica to help get started on a whole plant based diet, at www.Keelvar.org and you can log on for free for his 21-Day Kickstart with meals and recipes to follow for 21 days. There is also a free angélica for that. He has multiple free videos and YouTube, for example: https://youPlairu.be/[email or web address] , https://youtu.be/RgKKRuvco2r He has written multiple books, including [employer] Technology for the Brain, The Cheese Trap, Dr. Rock Velazco's Program for Reversing Diabetes, Your Body in Balance Dr. Anthony Carlson has shown the benefit of a starch based whole food plant based diet to his Rheumatoid Arthritis patients, as well as patient with diabetes II, hypertension, obesity, multiple sclerosis, heart disease, acne, and other, his website: www.debra.[email or web address] Dr. Yayo Allred is a renowned physician scientist, who has studied and researched the benefits of the Whole plant based diet. He has also researched the adverse effects of animal proteins on health. He presents many of his research findings in his book The [place] study. Dr. Gerber Becker has completed many research trials proving the reversal of diseases, such as heart disease and early prostate cancer, with healthy lifestyle and the Whole Plant based diet. Dr. Gerber Becker website is: www.[email or web address].sgevelyn.[email or web address] His new book: Undo It, has evidence [...] videos and YouTube, for example https://youtu.be/aSgNkhgVtks and https://youPlairu.be/lXXXygDRyBU. He has written multiple books including: How Not To and How Not To Diet He is now working on his next book: How Not To Age Dr. Danitza Dash (from the [facility]), has articles on the following website: LiveQoS.Restorando Also, you could find additional information on practical to follow recipes by reading or watching online and YouTube such as: Paid Search Specialist AJ, Cooking With Plants, The Vegan Corner (recipes from an [place] Paid Search Specialist), The Whole Foods Plant Based Cooking Show and visiting the provided websites for additional information on the whole plant based benefit and cooking recipes. You can also consider watching the vlogs of some of the plant based Athletes such as Fausto Ewing Derek on [employer]. Dr. Maryan Holguin (a psychiatrist who suffered [...] - Gentle Yoga Anyone Can Do Anywhere www.[email or web address].[email or web address]/yoga Also on youtube: yoga with Karlie 3- [...] or a higher dose. Raw: Garlic, Cilantro, Seminole nuts, Pumpkin seeds, Ingham seeds and Flax seed powder have been reported to help with certain metal detoxification such as mercury. [place]-3 plant based rich foods are good anti-inflammatory [...] the Whole Plant Based Diet, by watching Dardanelle over GOSO movie and then review website. There are many other resources and educational information on the Whole plant based diet on the Internet and documentaries. There are other resources for wellness that you can also benefit from, such as the [facility] Wellness website, [facility]org and includes Plant based and Mediterranean diet, yoga and meditation. Please avoid all dairy products. You could use non-dairy milk such as Flax milk, Cashew milk, Sunset milk, Rice milk, Oat milk or Hemp [...] (National Osteoporosis Foundation) http://www.osteo.org/osteolinks.asp [facility]: 9-677-371-BONE [facility] Calcium Information [place]: -Non-Dairy, Plant based Milk, can contain in1 glass up to 450 mg of calcium (300 to 450 mg) Exampled include Oat Milk, Flax Milk, Sunset Milk, Cashew Milk, Soy Milk, Peas Milk general health and well being Examples of Food Sources of Calcium from [facility] Food Milligrams (mg) per serving Percent DV* Soymilk, calcium-fortified, 8 ounces 299 30 Cheney juice, calcium-fortified, 6 ounces 261 26 Tofu, firm, made with calcium sulfate, cup* 253 25 Tofu, soft, made with calcium sulfate, cup* 138 14 Pcocs-zt-kaa cereal, calcium-fortified, 1 cup 100-1,000 10-100 Turnip greens, fresh, boiled, cup 99 10 Kale, raw, chopped, 1 cup 100 10 Kale, fresh, cooked, 1 cup 94 9 Slovenian cabbage, bok marin, raw, shredded, 1 cup 74 7 Bread, white, 1 slice 73 7 Tortilla, corn, oczmv-if-apoa/marshall, one 6 diameter 46 5 Tortilla, flour, cunln-kv-gfpj/marshall, one 6 diameter 32 3 Bread, whole-wheat, [...] could acces this information online at: http://ods.od.nih.gov/factsheets/Calci -[facility]/ Vitamin D: Vitamin D3= cholecalciferol, available over the counter. Dose recommended 800 to 1000 iu daily with a meal; Certain patients require 1870-8322 iu daily and in patients deficient in [...] bones. Studies show approximately 50% of [place] men and women are vitamin D deficient [...] available from: www.nof.org (the national osteoporosis foundation) http://www.curtisclinic.org/arthrit is/osteo/info.htm http://ods.od.nih.gov/factsheets/vitam ind.asp National Institutes of Health: 5-760-629-BONE The Calcium Information Center: At the [facility], we work as a team for your care, along with Nurse Practitioners, Physician Assistants, Nurses and Medical Assistants. It is a privilege and honor to serve you. Thank you for choosing The [facility] for your healthcare. Sincerely, Nidia Ascencio APRN.RISK AND 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 PAST MEDICAL HISTORY Diagnosis Date Monoclonal gammopathy [...] mg subcutaneously every 2 weeks. Prescribed by Traveling Missionary : Nel Lebron MD Previously prescr. by [...] in am, 3 noon, 2 pm), per marquetry worker No current facility-administered medications for this visit. [...] its performance characteristics determined by [facility]'s [facility] Pathology and Laboratory Medicine [place] ([facility]). It has not been cleared or approved by the FDA. -[facility] is regulated under CLIA as qualified to perform high-complexity testing. This test is used for clinical purposes. It should not be regarded as investigational or for research. Testosterone Date Value Ref Range Status 08/19/2018 387 193 - 824 ng/dL Final Comment: A testosterone level in the 193-320 ng/dL range with associated clinical symptoms is considered low and may indicate hypogonadism (from [facility] 2010 363:123-135). Results >320 ng/dL are considered [...] 147 53 - 334 mg/dL Final [facility] [place], Serum Date Value Ref Range Status 08/19/2018 1,020 534 - 1,267 mg/dL Final [facility] [place], Serum Date Value Ref Range Status 08/19/2018 551 253 - 653 mg/dL Final [facility] [place]/Lambda Ratio Date Value Ref Range Status 08/19/2018 [...] , Gender: Male SCANNER INFORMATION: DXA Model: Power Efficiency W [id number] SITE SCANNED: Lumbar spine and left hip [...] machine for accurate comparison. FOR MORE INFORMATION: [facility] for Osteoporosis and Metabolic Bone Disease: www.ccf.org/arthritis/osteo National Osteoporosis Foundation: www.nof.org International Society of Clinical Densitometry www.iscd.org Oracle Solutions Architect: [id number] Transcribe Date/Time: Sep 23 2022 10:28A Dictated by : DARRIAN DUBON MD This examination was interpreted and the report reviewed and electronically signed by: DARRIAN DUBON MD on Sep 28 2022 6:46PM EST documented in this encounter [facility] 09-23-2022 History of Present illness Narrative Radiology [...] 2022 9:54 AM documented in this encounter [facility] 02-10-2022 Miscellaneous Notes Pt aware. Estefanía Ferraro [...] you kindly, fa documented in this encounter [facility] 08-22-2020 History of Present illness Narrative Radiology [...] 2020 10:20 AM documented in this encounter [facility] Evaluation note Diagnosis Rheumatoid arthritis involving multiple sites with positive rheumatoid factor (HCC)- Primary Vitamin D deficiency Unspecified vitamin D deficiency Encounter to discuss test results Other specified counseling Encounter for medication review and counseling Other specified counseling Counseling on health promotion and disease prevention Other specified counseling Other osteoporosis without current pathological fracture [facility] Diagnosis Rheumatoid arthritis involving multiple sites with positive rheumatoid factor (HCC)- Primary Encounter to discuss test results Other specified counseling Counseling on health promotion and disease prevention Other specified counseling Ulcerative pancolitis (HCC) Vardaman ulcerative (chronic) colitis Other osteoporosis without current pathological fracture [facility] Rheumatoid arthritis involving multiple sites with positive rheumatoid factor (HCC)- Primary Encounter to discuss test results Other specified counseling Counseling on health promotion and disease prevention Other specified counseling Ulcerative pancolitis (HCC) Vardaman ulcerative (chronic) colitis Vitamin D deficiency Unspecified vitamin D deficiency On sulfasalazine therapy Encounter for medication review and counseling Other specified counseling Other osteoporosis without current pathological fracture Elevated serum immunoglobulin free light chain level Other nonspecific findings on examination of blood [facility] Diagnosis Seropositive rheumatoid arthritis (HCC) Rheumatoid arthritis Other osteoporosis without current pathological fracture Chronic pain of left ankle Ankle deformity, left Pes planus, unspecified laterality Other secondary osteoarthritis of multiple sites [facility] Diagnosis Rheumatoid arthritis involving multiple sites with positive rheumatoid factor (HCC) Other osteoporosis without current pathological fracture High risk for hip fracture Other specified conditions influencing health status Vitamin D deficiency, hx Unspecified vitamin D deficiency [facility] Diagnosis Other osteoporosis without current pathological fracture High risk for hip fracture Other specified conditions influencing health status Bone loss Other disorders of bone and cartilage Vitamin D deficiency, hx Unspecified vitamin D deficiency [facility] Elevated alkaline phosphatase level- Primary Other nonspecific abnormal serum enzyme levels [facility] Diagnosis Rheumatoid arthritis involving multiple sites with positive rheumatoid factor (HCC) [facility] Diagnosis Rheumatoid arthritis involving multiple sites with positive rheumatoid factor (HCC)- Primary Vitamin D deficiency Unspecified vitamin D deficiency Other osteoporosis without current pathological fracture Encounter for medication review and counseling Other specified counseling Rheumatoid arthritis involving multiple sites with positive rheumatoid factor (HCC) [facility] Diagnosis Foreign body of left hand, sequela- Primary [facility] Diagnosis Rheumatoid arthritis involving multiple sites with positive rheumatoid factor (HCC)- Primary Vitamin D deficiency Unspecified vitamin D deficiency Other osteoporosis without current pathological fracture [facility] Diagnosis Seropositive rheumatoid arthritis (HCC)- Primary Rheumatoid arthritis Rheumatoid arthritis involving multiple sites with positive rheumatoid factor (HCC) On sulfasalazine therapy Ulcerative pancolitis (HCC) Vardaman ulcerative (chronic) colitis Other osteoporosis without current pathological fracture History of bisphosphonate therapy Personal history of other drug therapy Counseling on health promotion and disease prevention Other specified counseling [facility] Diagnosis Other osteoporosis without current pathological fracture- Primary [facility] Diagnosis Seropositive rheumatoid arthritis (HCC)- Primary Rheumatoid arthritis Rheumatoid arthritis involving multiple sites with positive rheumatoid factor (HCC) On sulfasalazine therapy Ulcerative pancolitis (HCC) Vardaman ulcerative (chronic) colitis Other osteoporosis without current pathological fracture History of bisphosphonate therapy Personal history of other drug therapy Encounter to discuss test results Other specified counseling Encounter for medication review and counseling Other specified counseling Counseling on health promotion and disease prevention Other specified counseling documented in this encounter [facility] note* Diagnosis Pain of right hip- Primary Primary osteoarthritis of right hip Arthritis of knee, left History of total hip replacement, right [facility] Diagnosis Pain and swelling of right knee- Primary History of total left knee replacement History of total right knee replacement Pain and swelling of left knee [facility] Diagnosis Seropositive rheumatoid arthritis (HCC) Rheumatoid arthritis Ulcerative pancolitis (HCC) Vardaman ulcerative (chronic) colitis Other osteoporosis without current pathological fracture History of bisphosphonate therapy Personal history of other drug therapy [facility] Diagnosis Seropositive rheumatoid arthritis (HCC)- Primary Rheumatoid arthritis Rheumatoid arthritis involving multiple sites with positive rheumatoid factor (HCC) On methotrexate therapy On sulfasalazine therapy Ulcerative pancolitis (HCC) Vardaman ulcerative (chronic) colitis Osteopenia of multiple sites History of osteoporosis Personal history of other musculoskeletal disorders History of bisphosphonate therapy Personal history of other drug therapy Encounter to discuss test results Other specified counseling Encounter for medication review and counseling Other specified counseling Counseling on health promotion and disease prevention Other specified counseling documented in this encounter [facility] for referral (narrative)* Diagnostic Procedure Only (Routine) - Closed Specialty Diagnoses / Procedures Referred By Contac t Referred To Contact XR IMAGING Diagnoses Rheumatoid arthritis involving multiple sites with positive rheumatoid factor (HCC) Procedures XR HAND GENERAL 3V PA/LAT/OBL BILATERAL RADEX HAND MINIMUM 3 VIEWS Nidia Ascencio, SYSTEMS DESIGNER.RISK AND 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 [address] [place] [address] [place] [id number] Referral ID Status Reason Start Date Expiration Date V isits Requested Visits Authorized [id number] Closed Auto-Generate d Referral 03/14/2024 11/15/2024 1 1 [facility] for referral (narrative)* Diagnostic Procedure Only (Routine) - Closed Specialty Diagnoses / Procedures Referred By Contac t Referred To Contact XR IMAGING Diagnoses Rheumatoid arthritis involving multiple sites with positive rheumatoid factor (HCC) Procedures XR HAND GENERAL 3V PA/LAT/OBL BILATERAL RADEX HAND MINIMUM 3 VIEWS Nidia Ascencio APRN.RISK AND 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 [address] [place] [address] [place] [address] Referral ID Status Reason Start Date Expiration Date V isits Requested Visits Authorized [id number] Closed Auto-Generate d Referral 03/14/2024 11/15/2024 1 1 * Diagnostic Procedure Only (Routine) - Pending Review Specialty Diagnoses / Procedures Referred By Contac t Referred To Contact XR IMAGING Diagnoses Rheumatoid arthritis involving multiple sites with positive rheumatoid factor (HCC) Procedures XR HAND GENERAL 3V PA/LAT/OBL BILATERAL RADEX HAND MINIMUM 3 VIEWS Nidia Ascencio APRN.RISK AND 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 [address] [place] [address] [place] [address] Referral ID Status Reason Start Date Expiration Date Visits Requested Visits Authorized [id number] Pending Review Auto-Generat ed Referral 04/13/2024 04/13/2025 [...] 1/> SITES AXIAL Darrian Tran MD [address] [place] [address] [place] [address] Referral ID Status Reason Start Date Expiration Date Visits Requested Visits Authorized [id number] Pending Review Auto-Generat ed Referral 11/04/2025 1 1 [facility] for visit Narrative* Diagnostic Procedure Only (Routine) - Closed Specialty Diagnoses / Procedures Referred By Contac t Referred To Contact XR IMAGING Diagnoses Rheumatoid arthritis involving multiple sites with positive rheumatoid factor (HCC) Procedures XR HAND GENERAL 3V PA/LAT/OBL BILATERAL RADEX HAND MINIMUM 3 VIEWS Nidia Ascencio, SYSTEMS DESIGNER.RISK AND 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 [address] [place] [address] [place] [address] Referral ID Status Reason Start Date Expiration Date V isits Requested Visits Authorized [id number] Closed Auto-Generate d Referral 03/14/2024 11/15/2024 1 1 [facility] for visit Narrative* Diagnostic Procedure Only (Routine) - Closed Specialty Diagnoses / Procedures Referred By Contac t Referred To Contact XR IMAGING Diagnoses Seropositive rheumatoid arthritis (HCC) Ulcerative pancolitis (HCC) Other osteoporosis without current pathological fracture History of bisphosphonate therapy Procedures DXA-AXIAL SKELETON DXA BONE DENSITY STUDY 1/> SITES AXIAL Darrian Tran MD [address] [place] [address] Phone: tel: fax: [place] [address] Referral ID Status Reason Start Date Expiration Date V isits Requested Visits Authorized [id number] Closed Auto-Generate d Referral 04/25/2025 11/15/2025 1 1 [facility] Advance Directives No Advanced Directives Records Found [...] phosphatase level Procedures CONSULT TO HEPATOLOGY OFFICE/[facility]IENT [facility] 60 MINUTES Nidia Ascencio, SYSTEMS DESIGNER.RISK AND 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 [address] [place] [address] Referral ID Status Reason Start Date Expiration Date Visits Requested Visits Authorized [id number] Authorized PCP Requested Referral 02/11/2024 02/10/2025 1 1 Specialty Diagnoses / Procedures Referred By Contac t Referred To Contact Orthopedics Diagnoses Foreign body of left hand, sequela Procedures CONSULT TO ORTHOPAEDICS OFFICE/[facility]PATIENT [facility] 60 MINUTES Nidia Ascencio, SYSTEMS DESIGNER.RISK AND 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 [address] [place] [address] Referral ID Status Reason Start Date Expiration Date Visits Requested Visits Authorized [id number] Authorized PCP Requested Referral 04/11/2024 04/11/2025 1 [...] section and content) DATE CREATED AUTHOR 11/30/2021 [facility] DATE CREATED AUTHOR AUTHOR'S ORGANIZ ATION 02/20/2023 [facility] DATE CREATED AUTHOR AUTHOR'S ORGANIZ ATION 06/09/2024 [facility] DATE CREATED AUTHOR AUTHOR'S ORGANIZ ATION 12/16/2024 [facility] DATE CREATED AUTHOR AUTHOR'S ORGANIZ ATION 12/17/2024 [facility] DATE CREATED AUTHOR AUTHOR'S ORGANIZ ATION 05/08/2025 [facility] DATE CREATED AUTHOR AUTHOR'S ORGANIZ ATION 05/13/[address] [facility] DATE CREATED AUTHOR AUTHOR'S ORGANIZ ATION 05/18/[address] [facility] DATE CREATED AUTHOR AUTHOR'S ORGANIZ ATION 06/07/2025 [facility] DATE CREATED AUTHOR AUTHOR'S ORGANIZ ATION 06/08/[address] [facility] DATE CREATED AUTHOR AUTHOR'S ORGANIZ ATION 06/10/[address] [facility] DATE CREATED AUTHOR AUTHOR'S ORGANIZ ATION 06/13/2025 [facility] DATE CREATED AUTHOR AUTHOR'S ORGANIZ ATION 06/14/[address] [facility] Source Comments (unrecognize d section and content) In the event this informatio n is protected by the Federal Confidentiality of Alcohol and Drug Abuse Patient Records regulations: The Federal rules restrict any use of the information to criminally investigate or prosecute any alcohol or drug abuse patient.[facility] the event this information is protected by the Federal Confidentiality of Alcohol and Drug Abuse Patient Records regulations: The Federal rules restrict any use of the information to criminally investigate or prosecute any alcohol or drug abuse patient.[facility] CenterIn the event this information is protected by the Federal Confidentiality of Alcohol and Drug Abuse Patient Records regulations: The Federal rules restrict any use of the information to criminally investigate or prosecute any alcohol or drug abuse patient.[facility] CenterIn the event this information is protected by the Federal Confidentiality of Alcohol and Drug Abuse Patient Records regulations: The Federal rules restrict any use of the information to criminally investigate or prosecute any alcohol or drug abuse patient.[facility] CenterIn the event this information is protected by the Federal Confidentiality of Alcohol and Drug Abuse Patient Records regulations: The Federal rules restrict any use of the information to criminally investigate or prosecute any alcohol or drug abuse patient.[facility] CenterIn the event this information is protected by the Federal Confidentiality of Alcohol and Drug Abuse Patient Records regulations: The Federal rules restrict any use of the information to criminally investigate or prosecute any alcohol or drug abuse patient.[facility] CenterIn the event this information is protected by the Federal Confidentiality of Alcohol and Drug Abuse Patient Records regulations: The Federal rules restrict any use of the information to criminally investigate or prosecute any alcohol or drug abuse patient.[facility] CenterIn the event this information is protected by the Federal Confidentiality of Alcohol and Drug Abuse Patient Records regulations: The Federal rules restrict any use of the information to criminally investigate or prosecute any alcohol or drug abuse patient.[facility] CenterIn the event this information is protected by the Federal Confidentiality of Alcohol and Drug Abuse Patient Records regulations: The Federal rules restrict any use of the information to criminally investigate or prosecute any alcohol or drug abuse patient.[facility] CenterIn the event this information is protected by the Federal Confidentiality of Alcohol and Drug Abuse Patient Records regulations: The Federal rules restrict any use of the information to criminally investigate or prosecute any alcohol or drug abuse patient.[facility] CenterIn the event this information is protected by the Federal Confidentiality of Alcohol and Drug Abuse Patient Records regulations: The Federal rules restrict any use of the information to criminally investigate or prosecute any alcohol or drug abuse patient.[facility] CenterIn the event this information is protected by the Federal Confidentiality of Alcohol and Drug Abuse Patient Records regulations: The Federal rules restrict any use of the information to criminally investigate or prosecute any alcohol or drug abuse patient.[facility] CenterIn the event this information is protected by the Federal Confidentiality of Alcohol and Drug Abuse Patient Records regulations: The Federal rules restrict any use of the information to criminally investigate or prosecute any alcohol or drug abuse patient.[facility] CenterIn the event this information is protected by the Federal Confidentiality of Alcohol and Drug Abuse Patient Records regulations: The Federal rules restrict any use of the information to criminally investigate or prosecute any alcohol or drug abuse patient.[facility] CenterIn the event this information is protected by the Federal Confidentiality of Alcohol and Drug Abuse Patient Records regulations: The Federal rules restrict any use of the information to criminally investigate or prosecute any alcohol or drug abuse patient.[facility] CenterIn the event this information is protected by the Federal Confidentiality of Alcohol and Drug Abuse Patient Records regulations: The Federal rules restrict any use of the information to criminally investigate or prosecute any alcohol or drug abuse patient.[facility] CenterIn the event this information is protected by the Federal Confidentiality of Alcohol and Drug Abuse Patient Records regulations: The Federal rules restrict any use of the information to criminally investigate or prosecute any alcohol or drug abuse patient.[facility] CenterIn the event this information is protected by the Federal Confidentiality of Alcohol and Drug Abuse Patient Records regulations: The Federal rules restrict any use of the information to criminally investigate or prosecute any alcohol or drug abuse patient.[facility] the event this information is protected by the Federal Confidentiality of Alcohol and Drug Abuse Patient Records regulations: The Federal rules restrict any use of the information to criminally investigate or prosecute any alcohol or drug abuse patient.[facility] CenterIn the event this information is protected by the Federal Confidentiality of Alcohol and Drug Abuse Patient Records regulations: The Federal rules restrict any use of the information to criminally investigate or prosecute any alcohol or drug abuse patient.[facility] CenterIn the event this information is protected by the Federal Confidentiality of Alcohol and Drug Abuse Patient Records regulations: The Federal rules restrict any use of the information to criminally investigate or prosecute any alcohol or drug abuse patient.[facility] Reason for Visit (unrecogniz ed section and [...] Procedures INJECTION, ZOLEDRONIC ACID, 1 MG Nidia Ascencio, SYSTEMS DESIGNER.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 AND 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 [address] [place] [address] [facility] Maria De Jesus [address] [place] [address] Referral ID Status Reason Start Date Expiration Date V isits Requested Visits Authorized [id number] Authorized 04/12/2024 04/12/2025 1 1 Reason Comments Pain Reason Comments Follow-up Care Teams (unrecognized sec tion and content) Tire Recapper Relationship Specialty Start Date End Date Jose L Lackey MD PCP - General Family Practice 01/18/14 Tire Recapper Relationship Specialty Start Date End Date Jose L Lackey MD PCP - General Family Medicine 01/18/14 Tire Recapper Relationship Specialty Start Date End Date Jose L Lackey MD PCP - General Family Medicine 01/18/14 Tire Recapper Relationship Specialty Start Date End Date Jose L Lackey MD PCP - General Family Medicine 01/18/14 Tire Recapper Relationship Specialty Start Date End Date Jose L Lackey MD PCP - General Family Medicine 01/18/14 Tire Recapper Relationship Specialty Start Date End Date Jose L Lackey MD PCP - General Family Medicine 01/18/14 Tire Recapper Relationship Specialty Start Date End Date Jose L Lackey MD PCP - General Family Medicine 01/18/14 Tire Recapper Relationship Specialty Start Date End Date Jose L Lackey MD PCP - General Family Medicine 01/18/14 Tire Recapper Relationship Specialty Start Date End Date Jose L Lackey MD PCP - General Family Medicine 01/18/14 Tire Recapper Relationship Specialty Start Date End Date Jose L Lackey MD PCP - General Family Medicine 01/18/14 Tire Recapper Relationship Specialty Start Date End Date Jose L Lackey MD PCP - General Family Medicine 01/18/14 Tire Recapper Relationship Specialty Start Date End Date Jose L Lackey MD PCP - General Family Medicine 01/18/14 Tire Recapper Relationship Specialty Start Date End Date Jose L Lackey MD PCP - General Family Medicine 01/18/14 Tire Recapper Relationship Specialty Start Date End Date Jose L Lackey MD PCP - General Family Medicine 01/18/14 Tire Recapper Relationship Specialty Start Date End Date Jose L Lackey MD PCP - General Family Medicine 01/18/14 Tire Recapper Relationship Specialty Start Date End Date Jose L Lackey MD PCP - General Family Medicine 04/21/23 Tire Recapper Relationship Specialty Start Date End Date Jose L Lackey MD PCP - General Family Medicine 04/21/23 Tire Recapper Relationship Specialty Start Date End Date Jose L Lackey MD PCP - General Family Medicine 04/21/23 Tire Recapper Relationship Specialty Start Date End Date Jose L Lackey MD PCP - General Family Medicine 04/21/23 Tire Recapper Relationship Specialty Start Date End Date Jose L Lackey MD PCP - [facility] 01/18/14 Tire Recapper Relationship Specialty Start Date End Date Jose L Lackey MD PCP - [facility] 01/18/14 FOR RECORDS PERTAINING TO [...] BE BASED ON THE PRIMARY CLINICAL RECORDS. [facility] [employer] [facility]. provides no warranty or guarantee of the accuracy or completeness of information in this document.
[2025-06-16 08:48] LABS: Hematocrit 34.5 % (42.0-54.0); Hemoglobin 11.5 g/dL (14.0-18.0); Immature Granulocytes Abs Auto 0.01 10^3/uL (0.00-0.03); Immature Granulocytes Pct Auto 0.1 % (0.0-0.5); Lymphocytes Absolute Auto 1.4 10^3/uL (1.2-3.8); Mean Corpuscular HGB Conc 33.3 g/dL (29.9-35.2); Mean Corpuscular Hemoglobin 31.0 pg (25.9-34.0); Mean Corpuscular Volume 93.0 fL (80.0-94.0); Platelet Count 334 10^3/uL (150-450); Red Blood Count 3.71 10^6/uL (4.70-6.10); White Blood Count 7.1 10^3/uL (4.0-11.0)
[2025-06-16 09:24] LABS: Iron 39.0 ug/dL (65.0-175.0)
[2025-06-16 09:30] LABS: Alanine Aminotransferase 29 U/L (16-63); Albumin Globulin Ratio 0.8; Albumin Level 3.3 g/dL (3.4-5.0); Alkaline Phosphatase 136 U/L (46-116); Anion Gap 14.6; Aspartate Amino Transferase 22 U/L (15-37); Blood Urea Nitrogen 16.0 mg/dL (7.0-18.0); Calcium 9.3 mg/dL (8.5-10.1); Carbon Dioxide 25.4 mmol/L (21.0-32.0); Chloride 107 mmol/L (98-107); Estimated GFR (African America >60 (>=60 mL/min/1.73m^2); Estimated GFR (Non-African Ame >60 (>=60 mL/min/1.73m^2); Globulin 4.3 g/dL; Glucose 106 mg/dL (74-106); Potassium 4.0 mmol/L (3.5-5.1); Sodium 143 mmol/L (136-145); Total Protein 7.6 g/dL (6.4-8.2)
== END 2025-06-16 07:55 | disposition home or self-care (01) ==
LOC: LAB 08:01
PROVIDERS: PCP Family Medicine; Visit Provider Family Medicine
DX: Z79.899 Other long term (current) drug therapy (principal)
CPT/HCPCS: 36415; 80053; 83540; 85025

== ENCOUNTER 2025-07-18 16:40 | Outpatient (OUT) | payer OTHER, SELFPAY ==
--- OUTSIDE RECORDS SUMMARY | 2025-07-18 16:51 | XMS_ITS | CCD ---
Author Organization [facility] Care Team Providers Care Scrum Coach Name Role Phone Rigo Gonzalez Attending Provider [phone] Jose L Lackey Primary Care Provider Jose L Lackey MD Primary Care Provider [phone] Jose L Lackey MD Primary Care Provider [phone] ZIYAD ., DR DOMINGO Primary Care Unavailable HOY ., DR DOMINGO Consulting Unavailable HOY ., DR DOMINGO Attending Unavailable HOY ., DR DOMINGO Admitting Unavailable BENTON, DR KALEIGH Strong Consulting Unavailable HOY ., [...] Jose L Lackey MD Primary Care Provider [phone] Luis Antonio García Attending Unavaila Luis Antonio Bowden Admitting Unavaila Jose L Correa MD Primary Care Provider [phone] JR. EVERETT, BRADLY Watters Attending Unavaila karen VELIZ JR., BRADLY Watters Referring Unavaila karen VELIZ JR., BRADLY Watters Attending Unavaila karen VELIZ JR., BRADLY Watters Referring Unavaila ble Luis Antonio García Admitting Unavaila ble Luis Antonio García Attending Unavaila Marcin Licea Admitting Unavailable Marcin RAMÍREZ Attending Unavailable Luis Antonio García Attending Unavaila JOSE L Correa Primary Care Unavailable DARRIAN DUBON Referring Unavailable DARRIAN DUBON Attending Unavailable ALDARRIAN PEDRO Attending Unavailable JOSE L LACKEY M Primary Care Unavailable HOJOSE L Muñiz M Primary Care Unavailable ALDARRIAN PEDRO Attending Unavailable JOSE L LACKEY M Primary Care Unavailable ALDARRIAN PEDRO Referring Unavailable JOSE L LACKEY M Primary Care Unavailable ALPREET PEDROUZ Referring Unavailable Luis Antonio García Talal Attending Unavaila ble Sarmini, Luis Antonio Talal Referring Unavaila ble Sarmini, Salmon Talal Admitting Unavaila Marcin Licea Attending Unavailable Jose L Lackey Referring Unavailable Marcin RAMÍREZ Admitting Unavailable Marcin RAMÍREZ Attending Unavailable Sarmini, Luis Antonio Claudioal Attending Unavaila ble Sarmini, Luis Antonio Talal Attending Unavaila ble Sarmini, Luis Antonio Talal Attending Unavaila ble Sarmini, Luis Antonio Talal Attending Unavaila ble Sarmini, Luis Antonio Claudioal Attending Unavaila ble Unavailable Unavailable Unavailable Allergies Allergy Classification Reported Allergen(s) Allergy Type Date of Onset Reaction(s) Facility (5 sources) No Known Medication Allergies; Translations: [No Known Medication Allergies] Propensity to adverse reactions (disorder) [facility] Repository (6 sources) beta Sitosterol / ZINC [...] on above: TAKE 1 CAPSULE BY [facility] 4 TIMES A DAY ezetimibe 10 mg [...] Comment on above: Take 1 tablet by [facility] every 12 hours. folic acid 1 [...] in am, 3 noon, 2 pm), per precision aircraft systems assembler 0 Active Comment on above: Take by mouth. takes 8 pills a days, divided three times daily (3 in am, 3 noon, 2 pm), per precision aircraft systems assembler TAKE 2 TABLETS BY [facility] 4 [...] mg subcutaneously every 2 weeks. Prescribed by Cloth Measurer Machine : Nel Lebron MD Previously prescr. by Ronald Brown MD 0 02/18/2021 05/04/2023 Discontinued Comment on above: Inject 40 mg subcuta neously every 2 weeks. Prescribed by Cloth Measurer Machine : Nel Lebron MD Previously prescr. 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 Ricky caro call pt in august to schedule push and colonscopy in use peds scope (clear cap for both) Normal [facility] Gastroenterology Office/Clin ic Noteon 06-22-2025 Gastroenterology Office/Clinic Note Gastroenterology Office/Clinic Note Chief Complaint follow up to capsule [...] Low Liver Studies AMA Ab Scr: <20.0 (12/14/24) [...] examine duodenum well including papilla Assessment/Plan 1. [place] ulcerative colitis (K51.00: Ulcerative (chronic) pancolitis without [...] next colonoscopy, he prefers to stay at [facility] Colonoscopy 04/2025 showed full remission. Biopsies did not show active inflammation, did show TA from rectal and rectosigmoid colon biopsy, HP from sigmoid polyp He also has RA, was following with Dr. Valente at [facility], prescribed sulfasalazine, methotrexate. Currently his PCP is prescribing his medication. Recommended he continue to see rheumatology. He does not want to go back to Dr Valente, will refer to other six pack packer at [facility]. We discussed lifestyle modifications including Mediterranean diet and exercise Discussed health maintenance as well including vaccinations, getting his DEXA scan with Dr. Tatum and osteoporosis therapy - Schedule Colonoscopy in September to evaluate. Discussed risks such as bleeding, injury and perforation as well as benefits. Patient agreeable. - Referred to rheumatology at [facility] 2. History of colon polyps (Z86.0100: Personal [...] perforation as well as benefits. Patient agreeable. I, Jeannine Santizo, personally scribed for Luis Antonio García on 06/21/2025 10:14:57. . Follow-up No qualifying data available Problem List/Past Medical History Ongoing Acute diarrhea Adenomatous colon polyp Anemia Arthritis Bladder mass Bladder stone BPH with urinary obstruction Continuous severe abdominal pain Elevated alkaline phosphatase level Feeling of incomplete bladder emptying Gross hematuria (more content not included)... Normal [facility] Comment on above: Result Comment: Elec tronically Signed By: Jeannine Santizo MA\.br\Date and Time Signed: 06/21/25 10:40 EDT\.br\Electronically Co-Signed By: Luis Antonio García MD\.br\Date and Time Co-Signed: 06/22/25 11:13 EDT Ambulatory Visit Summaryon 0 06-21-2025 Ambulatory Visit Summary Ambulatory Visit Summary JAM TOSCANO :1965 Visit Date:06/21/2025 Ambulatory Visit Instructions Your Diagnosis [place] ulcerative colitis History of colon polyps Elevated alkaline phosphatase level Anemia Your Care Team Attending Physician - Ricky [...] Someone Will Contact You Regarding These Appointments [facility] External Ambulatory Referral, Rheumatology, 06/21/25 10:35:00 EDT, [place] ulcerative colitis History of colon polyps Elevated [...] PSA (prostate specific antigen) Ulcerative colitis, universal [place] ulcerative colitis Ureteral stone with hydronephrosis Urethral [...] may access all of your results and ot (more content not included)... Normal [facility] BD DXA - AXIAL SKELETONon BD DXA [...] years, Gender: Male SCANNER INFORMATION: DXA Model: LinPrim [id number] Date Scanned: 06/06/2025 8:13 AM CLINICAL HISTORY: [...] FOR MORE INFORMATION ABOUT DIAGNOSIS AND TREATMENT: [facility] for Osteoporosis and Metabolic Bone Disease:? www.ccf.org/arthritis/osteo National Osteoporosis Foundation:? www.nof.org International Society of Clinical Densitometry www.iscd.org Topline Beading Machine Tender: [id number] Transcribe Date/Time: Jun 06 2025 8:19A Dictated by : DARRIAN DUBON MD This examination was interpreted and the report reviewed and electronically signed by: DARRIAN DUBON MD on Jun 12 2025 5:22PM EST [id number] -2.1 Normal [facility] BD DXA TRABECLR BONE SCORE ( TBS)on [...] years, Gender: Male SCANNER INFORMATION: DXA Model: LinPrim [id number] Date Scanned: 06/06/2025 8:13 AM CLINICAL HISTORY: [...] FOR MORE INFORMATION ABOUT DIAGNOSIS AND TREATMENT: [facility] for Osteoporosis and Metabolic Bone Disease:? www.ccf.org/arthritis/osteo National Osteoporosis Foundation:? www.nof.org International Society of Clinical Densitometry www.iscd.org Topline Beading Machine Tender: [id number] Transcribe Date/Time: Jun 06 2025 8:19A Dictated by : DARRIAN DUBON MD This examination was interpreted and the report reviewed and electronically signed by: DARRIAN DUBON MD on Jun 12 2025 5:22PM EST [id number] -2.1 Normal [facility] CNOVon 06-06-2025 CNOV Office Visit (ANGEL ) JAM TOSCANO ([id number]) 1965 M Date Time Provider Department 06/06/25 8:20 AM DARRIAN DUBON During your visit today, we recorded the following information about you: Pulse Blood pressure Weight 66/minute 124/62 75.3 kg Darrian Dubon MD 06/07/2025 3:19 PM Signed FOLLOW UP VISIT Patient's Name: Jam Erwin [facility] [address] PCP: Jose L Lackey MD [address] [place] [phone] Consult Requested by: Jose L Lackey MD [address] [place] [address] Other physicians: Cloth Measurer Machine prev. Nel Lebron MD (his prev. precision aircraft systems assembler left- Ronald Brown MD) ; Now following with Dr. Luis Antonio García Accompanied by: self Interim history: is here for f/u RA and OP Recording using [employer] software for draft documentation of the visit was discussed with the patient/authorized signs sales representative; all questions welcomed and answered. Patient/authorized signs sales representative agreed to proceed Reports doing fine today, but this would be his last apt. 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 He has also been seeking local six pack packer closer to home for him. This is [...] He is still undergoing evaluation by his precision aircraft systems assembler for his IBD disease activity. He has been on Entyvio. States he has gastrointestinal evaluation by his precision aircraft systems assembler and states - Undergoing capsule endoscopy tomorrow to evaluate small intestine for potential tumors or bleeding. - Recent colonoscopy showed small benign tumors. States told his tumors were benign But still needs the camera States because he is bleeding and requiring His PCP and Cloth Measurer Machine are addressing his anemia and further evaluating He had iron infusion 05/26/2025 States he is on potassium and iron infusion by his Primary care physician States his Primary care physician started him on 4 tbs/wk and is comfortable with that He continues on the sulfasalazine, and states his precision aircraft systems assembler prescribes it, as well as the Entyvio. [...] with Gastroenter (more content not included)... Normal [facility] Reminderson 06-06-2025 Reminders Reminders From: Tamiko Garcia I To: [facility] - Reminders/Recalls; Sent: 06/06/2025 07:53:34 EDT Show up: 03/16/2026 07:53:00 EDT Subject: Colonoscopy recall Due Date/Time: 05/11/2026 07:53:00 EDT Reminder/Recall 1 year colon recall - UC Dr. García 05/11/25 Normal [facility] Gastroenterology Office/Clin ic Noteon 05-24-2025 Gastroenterology Office/Clinic Note Gastroenterology Office/Clinic Note Chief Complaint follow up to egd/colonoscopy HPI Staff Established patient is a(n) 60 year old male who presents today for a follow up to EGD & Colonoscopy on 05/11/25. Colon recall needs placed. GI complaints: No. Continues Entyvio subq. serviced through [facility]. Any blood thinners? no Any GLP-1 [...] 90.8 fL (12/14/24) Chloride: 108 mmol/L (12/14/24) Parke Absolute: 0.5 E9/L (12/14/24) CO2: 27 mmol/L (12/14/24) Parke Auto: 7.5 % (12/14/24) Creatinine: 0.8 mg/dL [...] next colonoscopy, he prefers to stay at [facility] (more content not included)... Normal [facility] Comment on above: Result Comment: Elec tronically Signed By: Jeannine Santizo MA\.br\Date and Time Signed: 05/22/25 09:02 EDT\.br\Electronically Co-Signed By: Luis Antonio García MD\.br\Date and Time Co-Signed: 05/24/25 14:37 EDT 25(OH)D3 [facility] 2024 25-hydroxyvitamin D3 [Mass/Vol] 60.0 ng/mL Normal 31.0-80.0 [facility] Comment on above: Order Comment: Speci men Type: BLOOD SPECIMEN Ordering Facility: [facility] Address: [address] [place] [address] Performed By: #### 1 989-3 #### [facility] CLIA [id number] [address] [place] [address] STATES OF [facility] CBC W Auto Differential pane l (Bld)on 05-23-2025 Basophils (Bld) [#/Vol] 0.03 10*3/uL Normal <0.11 [facility] Comment on above: Order Comment: Speci men Type: BLOOD SPECIMEN Ordering Facility: [facility] Address: [address] [place] [address] Performed By: #### 5 7021-8 #### [facility] CLIA [id number] [address] [place] [address] Basophils/100 WBC (Bld) 0.4 % Normal [facility] Comment on above: Order Comment: Speci men Type: BLOOD SPECIMEN Ordering Facility: [facility] Address: [address] [place] [address] Performed By: #### 5 7021-8 #### [facility] CLIA [id number] [address] [place] [address] Differential cell count method Nom (Bld) Auto Normal [facility] Comment on above: Order Comment: Speci men Type: BLOOD SPECIMEN Ordering Facility: [facility] Address: [address] [place] [address] Performed By: #### 5 7021-8 #### [facility] CLIA [id number] [address] [place] [address] Eosinophils (Bld) [#/Vol] 10*3/uL Normal <0.46 [facility] Comment on above: Order Comment: Speci men Type: BLOOD SPECIMEN Ordering Facility: [facility] Address: [address] [place] [address] Performed By: #### 5 7021-8 #### [facility] CLIA [id number] [address] [place] [address] Eosinophils/100 WBC (Bld) 0.0 % Normal [facility] Comment on above: Order Comment: Speci men Type: BLOOD SPECIMEN Ordering Facility: [facility] Address: [address] [place] [address] Performed By: #### 5 7021-8 #### [facility] CLIA [id number] [address] [place] [address]06 Erythrocyte distribution width (RBC) [Ratio] 15.0 % Normal 11.5-15.0 [facility] Comment on above: Order Comment: Speci men Type: BLOOD SPECIMEN Ordering Facility: [facility] Address: [address] [place] [address] Performed By: #### 5 7021-8 #### [facility] CLIA [id number] [address] [place] [address] Hematocrit (Bld) [Volume fraction] 35.9 % Low 39.0-51.0 [facility] Comment on above: Order Comment: Speci men Type: BLOOD SPECIMEN Ordering Facility: [facility] Address: [address] [place] [address] Performed By: #### 5 7021-8 #### [facility] CLIA [id number] [address] [place] [address]103 Hemoglobin (Bld) [Mass/Vol] 11.6 g/dL Low 13.0-17.0 [facility] Comment on above: Order Comment: Speci men Type: BLOOD SPECIMEN Ordering Facility: [facility] Address: [address] [place] [address] Performed By: #### 5 7021-8 #### [facility] CLIA [id number] [address] [place] [address]13 Immature granulocytes (Bld) [#/Vol] 10*3/uL Normal <0.10 [facility] Comment on above: Order Comment: Speci men Type: BLOOD SPECIMEN Ordering Facility: [facility] Address: [address] [place] [address] Performed By: #### 5 7021-8 #### [facility] CLIA [id number] [address] [place] [address]100 Immature granulocytes/100 WBC (Bld) 0.1 % Normal [facility] Comment on above: Order Comment: Speci men Type: BLOOD SPECIMEN Ordering Facility: [facility] Address: [address] [place] [address] Performed By: #### 5 7021-8 #### [facility] CLIA [id number] [address] [place] [address]15 Lymphocytes (Bld) [#/Vol] 1.69 10*3/uL Normal 1.00-4.00 [facility] Comment on above: Order Comment: Speci men Type: BLOOD SPECIMEN Ordering Facility: [facility] Address: [address] [place] [address] Performed By: #### 5 7021-8 #### [facility] CLIA [id number] [address] [place] [address]4211 Lymphocytes/100 WBC (Bld) 21.2 % Normal [facility] Comment on above: Order Comment: Speci men Type: BLOOD SPECIMEN Ordering Facility: [facility] Address: [facility] [place] [address] Performed By: #### 5 7021-8 #### [facility] CLIA [id number] [address] [place] [address]92 MCH (RBC) [Entitic mass] 30.1 pg Normal 26.0-34.0 [facility] Comment on above: Order Comment: Speci men Type: BLOOD SPECIMEN Ordering Facility: [facility] Address: [address] [place] [address] Performed By: #### 5 7021-8 #### [facility] CLIA [id number] [address] [place] [address]802 MCHC (RBC) [Mass/Vol] 32.3 g/dL Normal 30.5-36.0 [facility] Comment on above: Order Comment: Speci men Type: BLOOD SPECIMEN Ordering Facility: [facility] Address: [address] [place] [address] Performed By: #### 5 7021-8 #### [facility] CLIA [id number] [address] [place] [address]14 MCV (RBC) [Entitic vol] 93.0 fL Normal 80.0-100.0 [facility] Comment on above: Order Comment: Speci men Type: BLOOD SPECIMEN Ordering Facility: [facility] Address: [address] [place] [address] Performed By: #### 5 7021-8 #### [facility] CLIA [id number] [address] [place] [address]20 Monocytes (Bld) [#/Vol] 0.73 10*3/uL Normal <0.87 [facility] Comment on above: Order Comment: Speci men Type: BLOOD SPECIMEN Ordering Facility: [facility] Address: [address] [place] [address] Performed By: #### 5 7021-8 #### [facility] CLIA [id number] [address] [place] [address] Monocytes/100 WBC (Bld) 9.2 % Normal [facility] Comment on above: Order Comment: Speci men Type: BLOOD SPECIMEN Ordering Facility: [facility] Address: [address] [place] [address] Performed By: #### 5 7021-8 #### [facility] CLIA [id number] [address] [place] [address] Neutrophils (Bld) [#/Vol] 5.50 10*3/uL Normal 1.45-7.50 [facility] Comment on above: Order Comment: Speci men Type: BLOOD SPECIMEN Ordering Facility: [facility] Address: [address] [place] [address] Performed By: #### 5 7021-8 #### [facility] CLIA [id number] [address] [place] [address]14 Neutrophils/100 WBC (Bld) 69.1 % Normal [facility] Comment on above: Order Comment: Speci men Type: BLOOD SPECIMEN Ordering Facility: [facility] Address: [address] [place] [address] Performed By: #### 5 7021-8 #### [facility] CLIA [id number] [address] [place] [address]34 Nucleated RBC (Bld) [#/Vol] 10*3/uL Normal <0.01 [facility] Comment on above: Order Comment: Speci men Type: BLOOD SPECIMEN Ordering Facility: [facility] Address: [address] [place] [address] Performed By: #### 5 7021-8 #### [facility] CLIA [id number] [address] [place] [address]955 Nucleated RBC/100 WBC (Bld) [Ratio] 0.0 /100 WBC Normal [facility] Comment on above: Order Comment: Speci men Type: BLOOD SPECIMEN Ordering Facility: [facility] Address: [address] [place] [address] Performed By: #### 5 7021-8 #### [facility] CLIA [id number] [address] [place] [address]38 Platelet mean volume (Bld) [Entitic vol] 8.4 fL Low 9.0-12.7 [facility] Comment on above: Order Comment: Speci men Type: BLOOD SPECIMEN Ordering Facility: [facility] Address: [address] [place] [address] Performed By: #### 5 7021-8 #### [facility] CLIA [id number] [address] [place] [address]693 Platelets (Bld) [#/Vol] 337 10*3/uL Normal 150-400 [facility] Comment on above: Order Comment: Speci men Type: BLOOD SPECIMEN Ordering Facility: [facility] Address: [address] [place] [address] Performed By: #### 5 7021-8 #### [facility] CLIA [id number] [address] [place] [address]61 RBC (Bld) [#/Vol] 3.86 10*6/uL Low 4.20-6.[address] [facility] Comment on above: Order Comment: Speci men Type: BLOOD SPECIMEN Ordering Facility: [facility] Address: [address] [place] [address] Performed By: #### 5 7021-8 #### [facility] CLIA [id number] [address] [place] [address]1194 WBC (Bld) [#/Vol] 7.96 10*3/uL Normal 3.70-11.[address] [facility] Comment on above: Order Comment: Speci men Type: BLOOD SPECIMEN Ordering Facility: [facility] Address: [address] [place] [address] Performed By: #### 5 7021-8 #### [facility] CLIA [id number] [address] [place] [address]99 CRP SerPl-mCncon 05-23-2025 CRP [Mass/Vol] 3.5 mg/dL High <0.9 [facility] Comment on above: Order Comment: Speci men Type: BLOOD SPECIMEN Ordering Facility: [facility] Address: [address] [place] [address] Performed By: #### 2 4362-6 #### [facility] CLIA [id number] [address] [place] [address]26 Collagen crosslinked C-telop eptide [Mass/Vol]on 05-23-2025 C TELOPEPTIDE, BETA CROSS LINKED 374 pg/mL Normal 132-752 [facility] Comment on above: Order Comment: Speci men Type: BLOOD SPECIMEN Ordering Facility: [facility] Address: [address] [place] [address] Performed By: #### 4 1171-0 #### [facility] CLIA [id number] [address] [place] [address] [place] Renal function [facility] panelon 05-23-2025 Albumin [Mass/Vol] 4.0 g/dL Normal 3.9-4.9 [facility] Comment on above: Order Comment: Speci men Type: BLOOD SPECIMEN Ordering Facility: [facility] Address: [address] [place] [address] Performed By: #### 2 4362-6 #### [facility] CLIA [id number] [address] [place] [address]268 Anion gap [Moles/Vol] 12 mmol/L Normal 8-15 [facility] Comment on above: Order Comment: Speci men Type: BLOOD SPECIMEN Ordering Facility: [facility] Address: [address] [place] [address] Performed By: #### 2 4362-6 #### [facility] CLIA [id number] [address] [place] [address]88 Calcium [Mass/Vol] 9.5 mg/dL Normal 8.5-10.2 [facility] Comment on above: Order Comment: Speci men Type: BLOOD SPECIMEN Ordering Facility: [facility] Address: [address] [place] [address] Performed By: #### 2 4362-6 #### [facility] CLIA [id number] [address] [place] [address] Chloride [Moles/Vol] 105 mmol/L Normal 98-107 [facility] Comment on above: Order Comment: Speci men Type: BLOOD SPECIMEN Ordering Facility: [facility] Address: [address] [place] [address] Performed By: #### 2 4362-6 #### [facility] CLIA [id number] [address] [place] [address] CO2 [Moles/Vol] 23 mmol/L Normal 22-30 [facility] Comment on above: Order Comment: Speci men Type: BLOOD SPECIMEN Ordering Facility: [facility] Address: [address] [place] [address] Performed By: #### 2 4362-6 #### [facility] CLIA [id number] [address] [place] [address]180 Creatinine [Mass/Vol] 0.73 mg/dL Normal 0.73-1.22 [facility] Comment on above: Order Comment: Speci men Type: BLOOD SPECIMEN Ordering Facility: [facility] Address: [address] [place] [address] Performed By: #### 2 4362-6 #### [facility] CLIA [id number] [address] [place] [address] Creatinine and Glomerular filtration rate.predicted panel (S/P/Bld) 104 mL/min/1.73m??? Normal >=60 [facility] Comment on above: Order Comment: Speci men Type: BLOOD SPECIMEN Ordering Facility: [facility] Address: [address] [place] [address] Result Comment: Fauzia mated Glomerular Filtration Rate [...] GFR. Performed By: #### 2 4362-6 #### [facility] CLIA [id number] [address] [place] [address] Glucose [Mass/Vol] 135 mg/dL High 74-99 [facility] Comment on above: Order Comment: Quinn felder Type: BLOOD SPECIMEN Ordering Facility: [facility] Address: [address] [place] [address] Result Comment: The [place] [employer] (ADA) provides guidance for cutoff [...] Standards of Medical Care in Diabetes 2016, [place] [employer]. Diabetes Care. 2016.39(Suppl 1). Performed By: #### 2 4362-6 #### [facility] CLIA [id number] [address] [place] [address] Phosphate [Mass/Vol] 2.3 mg/dL Low 2.7-4.8 [facility] Comment on above: Order Comment: Quinn felder Type: BLOOD SPECIMEN Ordering Facility: [facility] Address: [address] [place] [address] Performed By: #### 2 4362-6 #### [facility] CLIA [id number] [address] [place] [address] Potassium [Moles/Vol] 4.2 mmol/L Normal 3.7-5.1 [facility] Comment on above: Order Comment: Quinn felder Type: BLOOD SPECIMEN Ordering Facility: [facility] Address: [address] [place] [address] Performed By: #### 2 4362-6 #### [facility] CLIA [id number] [address] [place] [address] Sodium [Moles/Vol] 140 mmol/L Normal 136-144 [facility] Comment on above: Order Comment: Speci men Type: BLOOD SPECIMEN Ordering Facility: [facility] Address: [address] [place] [address] Performed By: #### 2 4362-6 #### [facility] CLIA [id number] [address] [place] [address] Urea nitrogen [Mass/Vol] 17 mg/dL Normal 9-24 [facility] Comment on above: Order Comment: Speci men Type: BLOOD SPECIMEN Ordering Facility: [facility] Address: [address] [place], [place] [address] Performed By: #### 2 4362-6 #### [facility] CLIA [id number] [address] [place] [address] Ambulatory Visit Summaryon 0 05-22-2025 Ambulatory Visit Summary Ambulatory Visit Summary JAM TOSCANO :1965 Visit Date:05/22/2025 Ambulatory Visit Instructions Your Diagnosis Ulcerative colitis, universal History of colon polyps Elevated alkaline phosphatase level Anemia GUANAKITO (iron deficiency anemia) Your Care Team Attending Physician - Luis [...] Follow Up with Ricky ROBLERO, SHAZIA Velasco, [facility] When: In 3 months Where: [address] [place] [address] [place], [address] [phone] [phone] Medications What How Much When Instructions Unchanged [...] PSA (prostate specific antigen) Ulcerative colitis, universal [place] ulcerative colitis Ureteral stone with hydronephrosis Urethral [...] signed up for this yet, please contact [employer] at [phone] to get signed up today. Language Information Language assist (more content not included)... Normal [facility] Surgical Pathology Reporton 05-16-2025 Surgical Pathology Report [facility] [address] [place] [address]- Surgical Pathology Report Collected Date/Time: 05/11/2025 09:14 [...] left colon biopsy are multiple fragments of myo/pink tissue measuring less than 0.1 cm and [...] is entirely submitted in one cassette. (DC) DC:[facility] Microscopic Description The use of one or more reagents in the above tests is regulated as an analyte specific reagent (ASR). The test or tests are ordered following initial H&E microscopic examination. The performance characteristics were determined by the [facility]. The (more content not included)... Normal [facility] Comment on above: Performed By: #### 4 [id number] #### [facility] [address] [place] [address] Main OR Intraoperative Recor don 05-12-2025 Main OR Intraoperative Record Main OR Intraoperative Record IntraOp Document Type FT Summary Primary Physician: Luis Antonio García MD Finalized Date/Time: 05/12/25 09:28:01 Pt. Name: JAM TOSCANO./Sex: 1965 Male Med Rec #: [id number] Physician: Ricky ROBLERO, Luis Antonio Tiwari Financial #: [id number] Pt. Type: O Room/Bed: / Admit/Disch: 05/11/25 08:07:42 - 05/11/25 23:59:59 Institution: Case Times FT Entry 1 Patient Times In Room 05/11/25 09:02:00 Out Room 05/11/25 09:41:00 Procedure Times Start 05/11/25 09:07:00 Stop 05/11/25 09:38:00 Anesthesia Times Start 05/11/25 09:02:00 Stop 05/11/25 09:41:00 Time at [place] 05/11/25 09:15:00 Last Modified By: Rosanna Wallace RN 05/11/25 16:51:20 General Comments: EGD end time at 0909./KS,RN Colonoscopy start time at 0914./KS,RN Case Attendance FT Entry 1 Entry 2 Entry 3 Case Attendee Jeremi HERNÁNDEZ, Fatmata Wallace RN, Jennifer Flores Role Performed Anesthesiologist Patient Registration Supervisor - Primary Scrub - Primary Scene Shifter Time In 05/11/25 09:02:00 05/11/25 09:02:00 05/11/25 [...] EGD AND COLONOSCOPY(.) Comments Last Modified By: WallaceRosanna patten RN, RN, Kristin N 05/11/25 09:41:59 05/11/25 [...] Participants Rosanna Wallace RN, Jennifer Ellis, [facility] REPRESENTATIVE, Ricky Sylvester MD, Luis Antonio Tiwari Time Out Complete 05/11/25 09:05:00 Outcomes Met? Yes Last Modified By: Rosanna Wallace RN 05/11/25 09:05:10 Post-Care Text: The patient is free from signs and symptoms of injury caused by extraneous objects Allergy Information FT Pre-Care Text: Verifies allergies Entry 1 Allergies Reviewed? Yes Allergies Reviewed Self/Patient With Outcomes Met? Yes Last Modified By: Rosanna Wlalace RN 05/11/25 09:11:30 Post-Care Text: The patient [...] sigmoid biopsy. Primary Procedure Yes Primary Surgeon Ricky ROBLERO, Luis Antonio Tiwari Start 05/11/25 09:07:00 [...] and tissue Entry 1 Skin Integrity Intact, [place], Warm, & Skin Abnormality No Dry Outcomes Met? Yes Last Modified By: Rodrigo RAMESH, (more content not included)... Normal [facility] Discharge Instructionson Discharge Instructions Discharge Instructions ARNULFOJAM SCHUSTER Angel :1965 Visit Date:05/11/2025 Inpatient Discharge Instructions Your [...] Ricky ROBLERO, Luis Antonio Tiwari Where: [facility] [address] [place] [phone]- New Follow Up Appointments after Discharge Follow Up with Ricky ROBLERO, Luis Antonio Tiwari, [facility], [facility] When: Comments: office will call for follow up Where: [address], [address] [phone] Medications What How Much When Instructions Next [...] PSA (prostate specific antigen) Ulcerative colitis, universal [place] ulcerative colitis Ureteral stone with hydronephrosis Urethral [...] activities are safe for you. ??? Take irlu-ims-vnxuuxz and prescription medicines only as told by your health care provider. Contact (more content not included)... Normal [facility] Comment on above: Result Comment: Elec tronically Signed By: Jose RAMESH, Mary Lou\.sania\Date and Time Signed: 05/11/25 09:53 EDT Main OR PACU I Recordon 04-17 Main OR PACU I Record Main OR PACU I Record PACU Phase I Document Type FT Summary Primary Physician: Luis Antonio García MD Finalized Date/Time: 05/11/25 10:51:19 Pt. Name: JAM TOSCANO/Sex: 1965 Male Med Rec #: [id number] Physician: Luis Antonio García MD Financial #: [id number] Pt. Type: O Room/Bed: / Admit/Disch: 05/11/25 [...] Mary Lou Garcia RN 05/11/25 10:51 Normal [facility] Main OR Preoperative Recordo n 05-11-2025 Main OR Preoperative Record Main OR Preoperative Record Holding Area Document Type FT Summary Primary Physician: Luis Antonio García MD Finalized Date/Time: 05/11/25 08:28:46 Pt. Name: JAM TOSCANO Angel Ochoa/Sex: 1965 Male Med Rec #: [id number] Physician: Luis Antonio García MD Financial #: [id number] Pt. Type: O Room/Bed: / Admit/Disch: 05/11/25 [...] completed prep at 0500 and remained NPO since/MATEORN Finalized By: Obdulia Del Toro RN Document Signatures Signed By: Obdulia Del Toro RN 05/11/25 08:28 Normal [facility] No Panel Informationon 05-03 Radiology Study observation (narrative) [facility] XR Knee - left 1 or 2 [...] dislocation. Impression: Unremarkable left total knee arthroplasty. [facility] XR Knee - right 1 or 2 [...] dislocation. Impression: Unremarkable right total knee arthroplasty. [facility] XR Hip - right 3 [facility] [...] dislocation. Impression: Unremarkable right total hip arthroplasty. [facility] Radiology Study observation (narrative) [facility] CNOVon 02-14-2025 CNOV Office Visit (ANGEL ) JAM TOSCANO ([id number]) 1965 M Date Time Provider Department 02/14/25 7:20 AM DARRIAN DUBON During your visit today, we recorded the following information about you: Pulse Blood pressure Weight 66/minute 134/74 79 kg Darrian Dubon MD 02/20/2025 5:28 PM Signed FOLLOW UP VISIT Patient's Name: Jam [address] Dr [facility] [address] PCP: Jose L Lackey MD [address] [place] [phone] Consult Requested by: Jose L Lackey MD [address] [place] [address] Other physicians: [employer] prev. Nel Lebron MD (his prev. precision aircraft systems assembler left- Ronald Brown MD) ; Now following [...] BRBPR and denies melena. He follows with [employer] for his UC. States has scopes this summer by his precision aircraft systems assembler. He is following with Orthopedics for his osteoarthroses and non-inflammatory joint pains. He has a chronic rotator cuff tear and extensive bilateral glenohumeral degenerative disease. His s/p b/l TKR and rt THR. Hissed rate was elevated at 79 04/2024 at time of his pneumonia. He continues on sulfasalazine and Entyvio by his precision aircraft systems assembler. He does not describe RA related symptoms No jt pains or swelling outside of the LLE from TKR Denies rheum nodules No stiffness He is on sulfasalazine per precision aircraft systems assembler for his UC and this has been controlling his RA He is pleased with his treatment regimen He also states that his IBD is well controlled, states told is in remission, on Entyvio Doing exercise and working with personal development educator at the gym and will be going [...] in IBD and is following with local precision aircraft systems assembler for that. Has been on Humira since Sep 2020 (started with 80 mg loading dose and since has been on 40 mg every 2 wks) He was pleased with Enbrel response to his RA and later was switched to Humira, reports has similar benefit and is pleased with response. 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 Reports still gets 8 BM's a day, does not have BM at night, does not have to wake up from sleep. Has been following with his precision aircraft systems assembler for his UC Had colonoscopy 11/22/2021 with reported marked improvement in asc/transv/desc colon and severe active in rectum, histopath with active colitis with erosions. States Dr. Lebron has started him on rectal enemas. Recent colonoscopy with reported active colitis. He tells me that he continues to have multiple BM's; His precision aircraft systems assembler prescribed pred. course, completed recently. No jt [...] us, he is on Humira per his [employer] He is off Enbrel, was switched to Humira by his precision aircraft systems assembler. (previously was on Enbrel 25 mg twice a wk and has been in remission since on Enbrel and very pleased with his treatment regimen) He is on Humira 40 mg every 2 wks by his [employer] He is on sulfasalazine, Humira and mesalamine enemas per his precision aircraft systems assembler I have reviewed benefits of a whole food plant based diet He consumes dairy, cheese, sausage, hamburger. I have advised him on avoiding meats and dairy and reviewed reports and patient experience with flare of IBD and RA, as well as gastrointestinal dysbiosis. (more content not included)... Normal [facility] Quantiferon-TB Plus (Client Incubated)on 12-16-2024 Gamma interferon background IA Qn (Bld) 0.09 International_Unit/mL Invalid Interpretation Code [facility] Comment on above: Performed By: #### 1 [id number] #### [facility] [address] [place] [address] M. tuberculosis stim IFN-g by CD4+ CD8+ T-cells corrected for background Qn (Bld) 0.07 International_Unit/mL Invalid Interpretation Code [facility] Comment on above: Performed By: #### 1 [id number] #### [facility] [address] [place] [address] M. tuberculosis stim IFN-g by CD4+ T-cells corrected for background Qn (Bld) 0.07 International_Unit/mL Invalid Interpretation Code [facility] Comment on above: Performed By: #### 1 [id number] #### [facility] [address] [place] [address] M. tuberculosis stim IFN-g Ql (Bld) [Interp] Negative Invalid Interpretation Code Negative [facility] Comment on above: Result Comment: [...] interferon gamma. Chemiluminescence immunoassay methodology Performed at: [facility] [address] [place] [id number] PhD Tarun Olivas Performed By: #### 1 [id number] #### [facility] [address] [place] [address] Mitogen stimulated gamma interferon corrected for background Qn (Bld) >10.00 Invalid Interpretation Code [facility] Comment on above: Performed By: #### 1 [id number] #### [facility] [address] [place] [address] Service comment (Unsp spec) [Interp] Comment Invalid Interpretation Code [facility] Comment on above: Result Comment: Malacih tiFERON-TB Gold Plus is a qualitative indirect test for M tuberculosis infection (including disease) and is intended for use in conjunction with risk assessment, radiography, and other medical and diagnostic evaluations. The QuantiFERON-TB Gold Plus result is determined by subtracting the Nil value from either TB antigen (Ag) value. The Mitogen tube serves as a control for the test. Performed By: #### 1 [id number] #### [facility] [address] [place] [address] AMA Ab Scron 12-15-2024 Mitochondria M2 IgG Qn (S) <20.0 Invalid Interpretation Code 0.0-20.0 [facility] Comment on above: Result Comment: Nega tive 0.0 - 20.0 Equivocal 20.1 - 24.9 Positive >24.9 Mitochondrial (M2) Antibodies are found in 90-96% of patients with primary biliary cirrhosis. Performed at: [facility] [id number] PhD Tarun Olivas Performed By: #### 1 [id number] #### [facility] [address] [place] [address] Celiac Disease Comprehensive on 12-15-2024 Endomysium IgA Ql (S) Negative Invalid Interpretation Code Negative [facility] Comment on above: Performed By: #### 1 [id number] #### [facility] [address] [place] [address] Gliadin peptide IgA Qn (S) 5 unit(s) Invalid Interpretation Code 0-19 [facility] Comment on above: Result Comment: Nega tive 0 - 19 Weak Positive 20 - 30 Moderate to Strong Positive >30 Performed By: #### 1 [id number] #### [facility] [address] [place] [address] Gliadin peptide IgG Qn (S) 2 unit(s) Invalid Interpretation Code 0-19 [facility] Comment on above: Result Comment: Nega tive 0 - 19 Weak Positive 20 - 30 Moderate to Strong Positive >30 Performed By: #### 1 [id number] #### [facility] [address] [place] [address] IgA [Mass/Vol] 199 mg/dL Invalid Interpretation Code [address] [facility] Comment on above: Result Comment: Perf ormed at: [facility] [id number] PhD Tarun Olivas Performed By: #### 1 [id number] #### [facility] [address] [place] [address] tTG IgA Qn (S) <2 Invalid Interpretation Code 0-3 [facility] Comment on above: Result Comment: Nega tive 0 - 3 Weak Positive 4 - 10 Positive >10 Tissue Transglutaminase (tTG) has been identified as the endomysial antigen. Studies have demonstr- ated that endomysial IgA antibodies have over 99% specificity for gluten sensitive enteropathy. Performed By: #### 1 [id number] #### [facility] [address] [place] [address] tTG IgG Qn (S) 6 unit/mL High 0-5 [facility] Comment on above: Result Comment: Nega tive 0 - 5 Weak Positive 6 - 9 Positive >9 Performed By: #### 1 [id number] #### [facility] [address] [place] [address] Hep Bs Abon 12-15-2024 HBV surface Ab Ql (S) Non-Reactive Invalid Interpretation Code [facility] Comment on above: Result Comment: Non Reactive: Not immune to HBV infection. Equivocal: Unable to determine if anti-HBs is present at levels consistent with immunity. Reactive: Anti-HBs concentration detected at greater than 10 mIU/mL. Individual is considered to be immune to infection with HBV. Performed at: [facility] [address], [place] [id number] PhD Tarun Olivas Performed By: #### 2 [id number] #### [facility] [address] [place] [address] Hep Bs Agon 12-15-2024 HBV surface Ag IA Ql Negative Invalid Interpretation Code Negative [facility] Comment on above: Result Comment: Perf ormed at: [facility] [address] [id number] PhD Tarun Olivas Performed By: #### 2 [id number] #### [facility] [address] [place] [address] Ambulatory Visit Summaryon 0 12-14-2024 Ambulatory Visit [...] Ricky ROBLERO, Luis Antonio Tiwari Where: [facility] [address] [facility] [address] [address]- You Need to Complete the Following C-Reactive [...] PSA (prostate specific antigen) Ulcerative colitis, universal [place] ulcerative colitis Ureteral stone with hydronephrosis Urethral [...] for choosing us for your care. Normal [facility] CBC w/ Auto Diffon 5 Basophils/100 WBC (Bld) 0.5 % Normal 0.0-2.0 [facility] Comment on above: Performed By: #### 2 [id number] #### [facility] [address] [place] [address] Basophils/Leukocyt es Auto (Bld) [Pure # fraction] 0.0 E9/L Normal 0.0-0.2 [facility] Comment on above: Performed By: #### 2 [id number] #### [facility] [address] [place] [address] Eosinophils (Bld) [#/Vol] 0.0 E9/L Normal 0.0-0.5 [facility] Comment on above: Performed By: #### 2 [id number] #### [facility] [address] [place] [address] Eosinophils/100 WBC (Bld) 0.0 % Normal 0.0-8.0 [facility] Comment on above: Performed By: #### 2 [id number] #### [facility] [address] [place] [address] Erythrocyte distribution width (RBC) [Ratio] 15.6 % High 10.9-14.2 [facility] Comment on above: Performed By: #### 2 [id number] #### [facility] [address] [place] [address] Hematocrit (Bld) [Volume fraction] 36.2 % Low 37.7-49.0 [facility] Comment on above: Performed By: #### 2 [id number] #### [facility] [address] [place] [address] Hemoglobin (Bld) [Mass/Vol] 12.6 g/dL Low 13.5-17.5 [facility] Comment on above: Performed By: #### 2 [id number] #### [facility] [address] [place] [address] Lymphocytes (Bld) [#/Vol] 1.6 E9/L Normal 1.0-4.0 [facility] Comment on above: Performed By: #### 2 [id number] #### [facility] [address] [place] [address] Lymphocytes/100 WBC (Bld) 24.8 % Normal 14.0-50.0 [facility] Comment on above: Performed By: #### 2 [id number] #### [facility] [address] [place] [address] MCH (RBC) [Entitic mass] 31.7 pg Normal 27.0-34.0 [facility] Comment on above: Performed By: #### 2 [id number] #### [facility] [address] [place] [address] MCHC (RBC) [Mass/Vol] 34.9 g/dL Normal 31.4-36.0 [facility] Comment on above: Performed By: #### 2 [id number] #### [facility] [address] [place] [address] MCV (RBC) [Entitic vol] 90.8 fL Normal 80.0-100.0 [facility] Comment on above: Performed By: #### 2 [id number] #### [facility] [address] [place] [address] Monocytes (Bld) [#/Vol] 0.5 E9/L Normal 0.2-1.0 [facility] Comment on above: Performed By: #### 2 [id number] #### [facility] [address] [place] [address] Neutrophils (Bld) [#/Vol] 4.4 E9/L Normal 2.0-7.5 [facility] Comment on above: Performed By: #### 2 [id number] #### [facility] [address] [place] [address] Neutrophils/100 WBC (Bld) 67.2 % Normal 36.0-75.0 [facility] Comment on above: Performed By: #### 2 [id number] #### [facility] [address] [place] [address] Platelet 261.0 E9/L Normal 150.0-500.0 [facility] Comment on above: Performed By: #### 2 [id number] #### [facility] [address] [place] [address] Platelet mean volume (Bld) [Entitic vol] 6.9 fL Normal 6.4-10.8 [facility] Comment on above: Performed By: #### 2 [id number] #### [facility] [address] [place] [address] RBC (Bld) [#/Vol] 4.0 E12/L Low 4.3-5.9 [facility] Comment on above: Performed By: #### 2 [id number] #### [facility] [address] [place] [address] WBC corrected for nucl RBC Auto (Bld) [#/Vol] 6.6 E9/L Normal 4.0-11.0 [facility] Comment on above: Performed By: #### 2 [id number] #### [facility] [address] [place] [address] CMPon 12-14-2024 Albumin [Mass/Vol] 4.1 g/dL Normal 3.3-5.0 [facility] Comment on above: Performed By: #### 2 [id number] #### [facility] [address] [place] [address] Albumin/Globulin (S) [Mass conc ratio] 1.5 Normal 1.1-2.2 [facility] Comment on above: Performed By: #### 2 [id number] #### [facility] [address] [place] [address] ALP [Catalytic activity/Vol] 88 Int._Unit/L Normal 21-98 [facility] Comment on above: Performed By: #### 2 [id number] #### [facility] [address] [place] [address] ALT No additional P-5'-P [Catalytic activity/Vol] 27 Int._Unit/L Normal 6-46 [facility] Comment on above: Performed By: #### 2 [id number] #### [facility] [address] [place] [address] Anion gap [Moles/Vol] 9 mmol/L Normal 6-16 [facility] Comment on above: Performed By: #### 2 [id number] #### [facility] [address] [place] [address] AST [Catalytic activity/Vol] 29 Int._Unit/L Normal 5-43 [facility] Comment on above: Performed By: #### 2 [id number] #### [facility] [address] [place] [address] Bilirubin [Mass/Vol] 0.4 mg/dL Normal 0.0-1.1 [facility] Comment on above: Performed By: #### 2 [id number] #### [facility] [address] [place] [address] Calcium [Mass/Vol] 9.1 mg/dL Normal 8.9-11.1 [facility] Comment on above: Performed By: #### 2 [id number] #### [facility] [address] [place] [address] Chloride [Moles/Vol] 108 mmol/L Normal 101-111 [facility] Comment on above: Performed By: #### 2 [id number] #### [facility] [address] [place] [address] CO2 [Moles/Vol] 27 mmol/L Normal 21-31 [facility] Comment on above: Performed By: #### 2 [id number] #### [facility] [address] [place] [address] Creatinine [Mass/Vol] 0.8 mg/dL Normal 0.5-1.3 [facility] Comment on above: Performed By: #### 2 [id number] #### [facility] [address] [place] [address] Globulin (S) [Mass/Vol] 2.8 g/dL Normal 1.4-4.0 [facility] Comment on above: Performed By: #### 2 [id number] #### [facility] [address] [place] [address] Glucose [Mass/Vol] 94 mg/dL Normal 55-199 [facility] Comment on above: Performed By: #### 2 [id number] #### [facility] [address] [place] [address] Potassium [Moles/Vol] 4.7 mmol/L Normal 3.5-5.3 [facility] Comment on above: Performed By: #### 2 [id number] #### [facility] [address] [place] [address] Protein [Mass/Vol] 6.9 g/dL Normal 6.0-7.8 [facility] Comment on above: Performed By: #### 2 [id number] #### [facility] [address] [place] [address] Sodium [Moles/Vol] 139 mmol/L Normal 135-145 [facility] Comment on above: Performed By: #### 2 [id number] #### [facility] [address] [place] [address] Urea nitrogen [Mass/Vol] 16 mg/dL Normal 5-21 [facility] Comment on above: Performed By: #### 2 [id number] #### [facility] [address] [place] [address] Urea nitrogen/Creatinin e [Mass ratio] 20 No Units Normal 10-20 [facility] Comment on above: Performed By: #### 2 [id number] #### [facility] [address] [place] [address] CRPon 12-14-2024 CRP [Mass/Vol] 0.2 mg/dL Normal <=1.9 [facility] Comment on above: Performed By: #### 2 [id number] #### [facility] [address] [address] Gastroenterology Office/Clin ic Noteon 12-14-2024 Gastroenterology Office/Clinic [...] Last visit 06/13/24 w/Dr. García: Assessment/Plan 1. [place] ulcerative colitis (K51.00: Ulcerative (chronic) pancolitis without [...] next colonoscopy, he prefers to stay at [facility] He has also RA, no specific therapy for now, follows with Dr. Valente at [facility] We discussed that having this lesion in [...] 89.5 fL (03/02/24) Chloride: 107 mmol/L (03/02/24) Parke Absolute: 0.5 E9/L (03/02/24) CO2: 27 mmol/L (03/02/24) Parke Auto: 8.2 % (03/02/24) Creatinine: 0.8 mg/dL (03/02/24) MPV: 6.9 fL (03/02/24) Globulin: 3 gm/dL (03/02/24) Neutro Absolute: 4.2 E9/L (03/02/24) Glucose Lvl: 97 mg/dL (03/02/24) Neutro Auto: 63.6 % (03/02/24) Potassium Lvl: 3.6 mmol/L (03/02/24) Platelet: 344 E9/L (03/02/24) Sodium Lvl: 141 mmol/L (03/02/24) RBC: 3.9 E12/L Low (03/02/24) Total Protein: 7 (more content not included)... Normal [facility] Comment on above: Result Comment: Elec tronically Signed By: Ricky ROBLERO, Luis Antonio Tiwari\.br\Date and Time Signed: 12/14/24 08:52 EST eGFRon 12-14-2024 eGFR 101 mL/min/1.73 m2 Normal >=59 [facility] Comment on above: Performed By: #### 1 [id number] #### [facility] [address] [place] [address] Ambulatory Visit Summaryon 0 11-21-2024 Ambulatory Visit [...] (Multivitamins and Minerals) omeprazole (omeprazole 40 mg Sydni) sulfasalazine vedolizumab (Entyvio Pen 108 mg/0.68 mL [...] Ricky ROBLERO, Luis Antonio Tiwari Where: [facility] [address] [place] [address]- You Need to Schedule the Following Appointments Follow Up with DARRELL ROBLERO, Marcin Maguire, URL When: Where: [facility] [address] , [place] [address]- Medications What How Much When Instructions Unchanged [...] PSA (prostate specific antigen) Ulcerative colitis, universal [place] ulcerative colitis Ureteral stone with hydronephrosis Urethral [...] What are (more content not included)... Normal [facility] CNPNon 11-21-2024 CNPN Telephone (RHEULN) JAM TOSCANO ([id number]) 1965 M Date Time Provider Department 11/21/24 [...] toe 3 days ago. States this is lathe tender with movement. Denies any change in [...] apt with me or any rheum ANGÉLICA (CEMENTER or PA) who has opening soon. thank you kindly, Estephania Lara LPN 11/23/2024 8:01 AM Signed Please offer appt with Dr Dubon or CEMENTER, if patient still interested. Jordyn Roberson 11/23/2024 [...] atorvastatin (LIPITOR (more content not included)... Normal [facility] PSA Totalon 11-21-2024 Prostate specific Ag [Mass/Vol] 3.3 ng/mL Normal 0.1-3.5 [facility] Comment on above: Result Comment: The concentration of PSA determined by different manufacturers can vary due to differences in assay methods and reagent specificity. Values obtained from different assay methods cannot be used interchangeably. The methodology used for this result was chemiluminescence using [employer]'s Access Hybritech PSA reagent. Performed By: #### 1 [id number] #### [facility] [address] [place] [address] CNOVon 10-05-2024 CNOV Office Visit (ANGEL ) JAM TOSCANO ([id number]) 1965 M Date Time Provider Department 10/05/24 7:20 AM DARRIAN DUBON During your visit today, we recorded the following information about you: Pulse Blood pressure Weight 66/minute 128/76 77.7 kg Darrian Dubon MD 10/16/2024 7:47 PM Signed FOLLOW UP VISIT Patient's Name: Jam Erwin [facility] [address] PCP: [place] [address] [place] [id number] Consult Requested [place]: [place] [address] [place] [id number] Other physicians: Cloth Measurer Machine prev. Nel eLbron MD (his prev. precision aircraft systems assembler left- Ronald Brown MD) ; Now following [...] No stiffness He is on sulfasalazine per precision aircraft systems assembler for his UC and this has been controlling his RA He is pleased with his treatment regimen He also states that his IBD is well controlled, states told is in remission, on Entyvio Doing exercise and working with personal development educator at the gym and will be going [...] in IBD and is following with local precision aircraft systems assembler for that. Has been on Humira since Sep 2020 (started with 80 mg loading dose and since has been on 40 mg every 2 wks) He was pleased with Enbrel response to his RA and later was switched to Humira, reports has similar benefit and is pleased with response. 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 Reports still gets 8 BM's a day, does not have BM at night, does not have to wake up from sleep. Has been following with his precision aircraft systems assembler for his UC Had colonoscopy 11/22/2021 with reported marked improvement in asc/transv/desc colon and severe active in rectum, histopath with active colitis with erosions. States Dr. Lebron has started him on rectal enemas. Recent colonoscopy with reported active colitis. He tells me that he continues to have multiple BM's; His precision aircraft systems assembler prescribed pred. course, completed recently. No jt [...] us, he is on Humira per his Cloth Measurer Machine He is off Enbrel, was switched to Humira by his precision aircraft systems assembler. (previously was on Enbrel 25 mg twice a wk and has been in remission since on Enbrel and very pleased with his treatment regimen) He is on Humira 40 mg every 2 wks by his Cloth Measurer Machine He is on sulfasalazine, Humira and mesalamine enemas per his precision aircraft systems assembler I have reviewed benefits of a whole food plant based diet He consumes dairy, cheese, sausage, hamburger. I have advised him on avoiding meats and dairy and reviewed reports and patient experience with flare of IBD and RA, as well as gastrointestinal dysbiosis. I advised him on a whole foods plant based diet. He has a wiper blender ([employer] XL) and interested in making healthy smoothies [...] 2018 Lowest (more content not included)... Normal [facility] Surgical Pathology Reporton 06-07-2024 Surgical Pathology Report [facility] [address] [place] [address]- Surgical Pathology Report Collected Date/Time: 06/03/2024 10:08 [...] is entirely submitted in one cassette. (DC) DC:[facility] Microscopic Description A-E: Microscopic examination performed unless gross only specified. The use of one or more reagents in the above tests is regulated as an analyte specific reagent (ASR). The test or tests are ordered following initial H&E microscopic examination. The performance characteristics were determined by the [facility]. They have not been cleared or approved by the [place] Food and Drug Administration. The FDA has determined that such clearance or approval is not necessary. These tests are used for clinical purposes. They should not be regarded as investigational or for research. Appropriate positive and negative controls are performed and are acceptable. [facility] Comment on above: Performed By: #### 4 [id number] #### [facility] [address] [place] [address] XR Hand - bilateral PA and L ateral and Obliqueon 03-14-2024 IMPRESSION: Severe changes of chronic inflammatory arthritis, similar to prior. Left hand metallic foreign body. Topline Beading Machine Tender: CODY Transcribe Date/Time: Mar 14 2024 1:31P Dictated by : HORACIO DAWSON MD This examination was interpreted and the report reviewed and electronically signed by: HORACIO DAWSON MD on Mar 14 2024 5:53PM [facility] DIVISION OF RADIOLOGY * * [...] of the [facility]. DIVISION OF RADIOLOGY Provider, [facility] - 03/14/2024 * * *Final Report* [...] to prior. Left hand metallic foreign body. Topline Beading Machine Tender: PSCB Transcribe Date/Time: Mar 14 2024 1:31P Dictated by : HORACIO DAWSON MD This examination was interpreted and the report reviewed and electronically signed by: HORACIO DAWSON MD on Mar 14 2024 5:53PM EST [facility] Radiology Study observation (narrative) [facility] XR Hand - bilateral PA and L ateral and ObliqueOrdered By: [facility]cf Provider on 03-14-2024 [facility] LIPID PROFILEon 02-11-2023 CHOL-HDL RATIO NORM SEE BELOW Normal [facility] Comment on above: Result Comment: 3.3 - 4.4 LOW RISK 4.4 - 7.1 AVERAGE RISK 7.1 - 11.0 MODERATE RISK >11.0 HIGH RISK Performed By: #### L IPID, LIVER #### [facility] [address] [address] [address] Rj Miller Cholesterol [Mass/Vol] 99 mg/dL Normal <=200 [facility] Comment on above: Performed By: #### L IPID, LIVER #### [facility] [address] [address] [address] Rj Miller Cholesterol in HDL [Mass/Vol] 44 mg/dL Normal 40-60 [facility] Comment on above: Performed By: #### L IPID, LIVER #### [facility] [address] [address] [address] Rj Miller Cholesterol in LDL [Mass/Vol] 45.4 mg/dL Normal [facility] Comment on above: Performed By: #### L IPID, LIVER #### [facility] [address] [address] [address] Rj Miller Cholesterol.total/ Cholesterol in HDL [Mass ratio] 2.3 {ratio} Normal [facility] Comment on above: Performed By: #### L IPID, LIVER #### [facility] [address] [address] [address] Rj Miller HDL NORMAL > or = 60 mg/dl - LO W CARDIOVASCULAR RISK <40 mg/dl - HIGH CARDIOVASCULAR RISK Normal [facility] Comment on above: Performed By: #### L IPID, LIVER #### [facility] [address] [address] [address] Rj Miller LDL CALC NORMAL SEE BELOW Normal [facility] Comment on above: Result Comment: <100 mg/dl OPTIMAL 100 - 129 mg/dl NEAR OR ABOVE OPTIMAL 130 - 159 mg/dl BORDERLINE HIGH 160 - 189 mg/dl HIGH >190 mg/dl VERY HIGH Performed By: #### L IPID, LIVER #### [facility] [address] [address] [address] Rj Miller Triglyceride [Mass/Vol] 48 mg/dL Normal <=150 [facility] Comment on above: Performed By: #### L IPID, LIVER #### [facility] [address] [address] [address] Rj Miller VLDL CALC 9.6 mg/dL Normal [facility] Comment on above: Performed By: #### L IPID, LIVER #### [facility] [address] [place] [address] Dr. Rj Miller LIVER PROFILEon 02-11-2023 Albumin [Mass/Vol] 3.7 g/dL Normal 3.4-5.0 [facility] Comment on above: Performed By: #### L IPID, LIVER #### [facility] [address] [place] [address] Dr. Rj Miller Albumin/Globulin [Mass ratio] 1.0 {ratio} Normal [facility] Comment on above: Performed By: #### L IPID, LIVER #### [facility] [address] [place] [address] Dr. Rj Miller ALP [Catalytic activity/Vol] 210 U/L Critically high 46-116 [facility] Comment on above: Performed By: #### L IPID, LIVER #### [facility] [address] [place] [address] Dr. Rj Miller ALT [Catalytic activity/Vol] 50 U/L Normal 16-63 [facility] Comment on above: Performed By: #### L IPID, LIVER #### [facility] [address] [place] [address] Dr. Rj Miller AST [Catalytic activity/Vol] 42 U/L Critically high 15-37 [facility] Comment on above: Performed By: #### L IPID, LIVER #### [facility] [address] [place] [address] Dr. Rj Miller BILI, CONJUGATED 0.1 mg/dL Normal 0.0-0.2 [facility] Comment on above: Performed By: #### L IPID, LIVER #### [facility] [address] [place] [address] Dr. Rj Miller Bilirubin [Mass/Vol] 0.3 mg/dL Normal 0.2-1.0 [facility] Comment on above: Performed By: #### L IPID, LIVER #### [facility] [address] [place], [place] [address] Dr. Rj Miller Globulin (S) [Mass/Vol] 3.7 g/dL Normal [facility] Comment on above: Performed By: #### L IPID, LIVER #### [facility] [address] [place], [place] [address] Dr. Rj Miller Protein [Mass/Vol] 7.4 g/dL Normal 6.4-8.2 [facility] Comment on above: Performed By: #### L IPID, LIVER #### [facility] [address] [place], [place] [address] Dr. Rj Miller 25-hydroxyvitamin D3 [Mass/V ol]on 01-14-2023 Vitamin D 25 [place] 40.2 ng/mL 30 - 100 ng/mL [facility] MRI LSPINE WO CONon 11-24-19 MRI LSPINE [...] complex. No central or foraminal stenosis IMPRESSION: [id number] degenerative changes resulting in mild left L2-L3 and mild right L3-L4 foraminal stenosis Electronically authenticated by: KALEIGH CANTOR Date: 2022-11-24 11:35 Normal [facility] XR LSPINE MIN 4 VIEWSon 10-17 XR [...] by: JENNY TAPIA Date: 2022-11-07 11:13 Normal [facility] DXA-AXIAL SKELETONon 022 LOWEST T-SCORE -2.5 [facility] CBC AUTO DIFFon 09-24-2022 BASO # 0.0 103/ul Normal 0.0-0.1 [facility] Comment on above: Performed By: #### C BC #### [facility] [address] [place] [address] Dr. Rj Miller Basophils/100 WBC (Bld) 0.5 % Normal 0.2-2.0 [facility] Comment on above: Performed By: #### C BC #### [facility] [address] [address] [address] Rj Miller EO # 0.2 103/ul Normal 0.0-0.7 [facility] Comment on above: Performed By: #### C BC #### [facility] [address] [place] [address] Dr. Rj Miller Eosinophils/100 WBC (Bld) 1.8 % Normal 0.9-7.0 [facility] Comment on above: Performed By: #### C BC #### [facility] [address] [place] [address] Dr. Rj Miller Erythrocyte distribution width (RBC) [Ratio] 13.6 % Normal 11.0-15.0 [facility] Comment on above: Performed By: #### C BC #### [facility] [address] [place] [address] Dr. Rj Miller Hematocrit (Bld) [Volume fraction] 41.3 % Critically low 42.0-54.0 [facility] Comment on above: Performed By: #### C BC #### [facility] [address] [place] [address] Dr. Rj Miller Hemoglobin (Bld) [Mass/Vol] 14.1 g/dL Normal 14.0-18.0 [facility] Comment on above: Performed By: #### C BC #### [facility] [address] [place] [address] Dr. Rj Miller IG # 0.02 10e3/ul Normal 0.00-0.03 [facility] Comment on above: Performed By: #### C BC #### [facility] [address] [place] [address] Dr. Rj Miller IG % 0.2 % Normal 0.0-0.5 [facility] Comment on above: Performed By: #### C BC #### [facility] [address] [place] [address] Dr. Rj Miller LYMPH # 2.4 103/ul Normal 1.2-3.8 [facility] Comment on above: Performed By: #### C BC #### [facility] [address] [place] [address] Dr. Rj Miller Lymphocytes/100 WBC (Bld) 29.5 % Normal 20.5-60.0 [facility] Comment on above: Performed By: #### C BC #### [facility] [address] [place] [address] Dr. Rj Miller MANUAL DIFF REQ NO Normal [facility] Comment on above: Performed By: #### C BC #### [facility] [address] [place] [address] Dr. Rj Miller MCH (RBC) [Entitic mass] 31.1 pg Normal 25.9-34.0 [facility] Comment on above: Performed By: #### C BC #### [facility] [address] [place] [address] Dr. Rj Miller MCHC (RBC) [Mass/Vol] 34.1 g/dL Normal 29.9-35.2 [facility] Comment on above: Performed By: #### C BC #### [facility] [address] [place] [address] Dr. Rj Miller MCV (RBC) [Entitic vol] 91.0 fL Normal 80.0-94.0 [facility] Comment on above: Performed By: #### C BC #### [facility] [address] [place] [address] Dr. Rj Miller MONO # 0.7 103/ul Normal 0.3-0.8 [facility] Comment on above: Performed By: #### C BC #### [facility] [address] [place] [address] Dr. Rj Miller Monocytes/100 WBC (Bld) 8.3 % Normal 1.7-12.0 [facility] Comment on above: Performed By: #### C BC #### [facility] [address] [place] [address] Dr. Rj Miller NEUT # 4.9 103/ul Normal 1.4-6.5 [facility] Comment on above: Performed By: #### C BC #### [facility] [address] [place] [address] Dr. Rj Miller Neutrophils/100 WBC (Bld) 59.7 % Normal 43.0-75.0 [facility] Comment on above: Performed By: #### C BC #### [facility] [address] [place] [address] Dr. Rj Miller Platelet mean volume (Bld) [Entitic vol] 8.8 fL Critically low 9.5-13.5 [facility] Comment on above: Performed By: #### C BC #### [facility] [address] [place] [address] Dr. Rj Miller PLT 288 103/ul Normal 150-450 [facility] Comment on above: Performed By: #### C BC #### [facility] [address] [address] [address] Rj Miller RBC 4.54 106/ul Critically low 4.70-6.10 [facility] Comment on above: Performed By: #### C BC #### [facility] [address] [place] [address] Dr. Rj Miller WBC 8.2 103/ul Normal 4.0-11.0 [facility] Comment on above: Performed By: #### C BC #### [facility] [address] [place] [address] Dr. Rj Miller Cov[facility] ([facility]on SARS-CoV-2 (COVID-19) RNA BERNARDO+probe Ql (Unsp spec) Not detected Normal NOT DETECTED [facility] Comment on above: Result Comment: [...] for this test is supported by the [employer] Tender of Health and Human Service's declaration that [...] By: #### C VDTBH #### [facility] [address] [place] [address] Dr. Rj Miller LIPASEon 09-24-2022 Lipase [Catalytic activity/Vol] 17.0 U/L Critically low 73.0-393.0 [facility] Comment on above: Performed By: #### C MP, LIPA, HSTROPN #### [facility] [address] [place] [address] Dr. Rj Miller PROF 14(COMP METB)on 022 Albumin [Mass/Vol] 3.8 g/dL Normal 3.4-5.0 [facility] Comment on above: Performed By: #### C MP, LIPA, HSTROPN #### [facility] [address] [place] [address] Dr. jR Miller Albumin/Globulin [Mass ratio] 1.0 {ratio} Normal [facility] Comment on above: Performed By: #### C MP, LIPA, HSTROPN #### [facility] [address] [place] [place] [address] Dr. Rj Miller ALP [Catalytic activity/Vol] 180 U/L Critically high 46-116 [facility] Comment on above: Performed By: #### C MP, LIPA, HSTROPN #### [facility] [address] [place] [address] Dr. Rj Miller ALT [Catalytic activity/Vol] 38 U/L Normal 16-63 [facility] Comment on above: Performed By: #### C MP, LIPA, HSTROPN #### [facility] [address] [place] [address] Dr. Rj Miller Anion gap [Moles/Vol] 8.7 mmol/L Normal [facility] Comment on above: Performed By: #### C MP, LIPA, HSTROPN #### [facility] [address] [place] [address] Dr. Rj Miller AST [Catalytic activity/Vol] 28 U/L Normal 15-37 [facility] Comment on above: Performed By: #### C MP, LIPA, HSTROPN #### [facility] [address] [place], [place] [id number] Dr. Rj Miller Bilirubin [Mass/Vol] 0.4 mg/dL Normal 0.2-1.0 [facility] Comment on above: Performed By: #### C MP, LIPA, HSTROPN #### [facility] [address] [place] [address] Dr. Rj Miller Calcium [Mass/Vol] 8.9 mg/dL Normal 8.5-10.1 [facility] Comment on above: Performed By: #### C MP, LIPA, HSTROPN #### [facility] [address] [place] [address] Dr. Rj Miller Chloride [Moles/Vol] 103 mmol/L Normal 98-107 [facility] Comment on above: Performed By: #### C MP, LIPA, HSTROPN #### [facility] [address] [place] [address] Dr. Rj Miller CO2 [Moles/Vol] 26.0 mmol/L Normal 21.0-32.0 [facility] Comment on above: Performed By: #### C MP, LIPA, HSTROPN #### [facility] [address] [place] [address] Dr. Rj Miller Creatinine [Mass/Vol] 0.88 mg/dL Normal 0.70-1.30 [facility] Comment on above: Performed By: #### C MP, LIPA, HSTROPN #### [facility] [address] [place] [address] Dr. Rj Miller EGFR-AF CZECH >60 Normal >=60 [facility] Comment on above: Performed By: #### C MP, LIPA, HSTROPN #### [facility] [address] [place] [address] Dr. Rj Miller EGFR-NON AF CZECH >60 Normal >=60 [facility] Comment on above: Performed By: #### C MP, LIPA, HSTROPN #### [facility] [address] [place] [address] Dr. Rj Miller Globulin (S) [Mass/Vol] 3.8 g/dL Normal [facility] Comment on above: Performed By: #### C MP, LIPA, HSTROPN #### [facility] [address] [address] [address] Rj Miller Glucose [Mass/Vol] 116 mg/dL Critically high 74-106 [facility] Comment on above: Performed By: #### C MP, LIPA, HSTROPN #### [facility] [address] [place] [address] Dr. Rj Miller Potassium [Moles/Vol] 3.7 mmol/L Normal 3.5-5.1 [facility] Comment on above: Performed By: #### C MP, LIPA, HSTROPN #### [facility] [address] [place] [address] Dr. Rj Miller Protein [Mass/Vol] 7.6 g/dL Normal 6.4-8.2 [facility] Comment on above: Performed By: #### C MP, LIPA, HSTROPN #### [facility] [address] [place] [address] Dr. Rj Miller Sodium [Moles/Vol] 134 mmol/L Critically low 136-145 [facility] Comment on above: Performed By: #### C MP, LIPA, HSTROPN #### [facility] [address] [place] [address] Dr. Rj Miller Urea nitrogen [Mass/Vol] 13.0 mg/dL Normal 7.0-18.0 [facility] Comment on above: Performed By: #### C MP, LIPA, HSTROPN #### [facility] [address] [place] [address] Dr. Rj Miller Urea nitrogen/Creatinin e [Mass ratio] 14.8 mg/mg Normal [facility] Comment on above: Performed By: #### C MP, LIPA, HSTROPN #### [facility] [address] [place] [address] Dr. Rj Miller TROPONIN, HIGH SENSITIVITYon 09-24-2022 HSTROP 10.1 pg/mL Normal 4.0-76.1 [facility] Comment on above: Result Comment: CUT- OFF POINTS HAVE BEEN ESTABLISHED BASED ON THE FOURTH UNIVERSAL DEFINITIONS OF MYOCARDIAL INFARCTION. THE UPPER REFERENCE LIMIT (URL) OF TROPONIN, DEFINED THE 99TH PERCENTILE OF cTnI DISTRIBUTION IN A REFERENCE POPULATION, HAS BEEN CONFIRMED THE DECISION THRESHOLD FOR RI DIAGNOSIS. Performed By: #### C MP, DEBBY DORSEY #### [facility] [address] [address] [address] Rj Miller XR CSPINE 2_3 VIEWSon [...] by: JENNY TAPIA Date: 2022-09-24 07:20 Normal [facility] Basic Metabolic Panelon 04- Calcium [Mass/Vol] 8.7 mg/dL Normal 8.2-10.2 [facility] Comment on above: Performed By: #### B MP #### [facility] [address] [place] [address] [place] Chloride [Moles/Vol] 107 mmol/L Normal 95-114 [facility] Comment on above: Performed By: #### B MP #### [facility] [address] [id number] [place] CO2 [Moles/Vol] 23.3 mmol/L Normal 22.0-30.0 [facility] Comment on above: Performed By: #### B MP #### [facility] [address] [id number] [facility] Creatinine [Mass/Vol] 0.80 mg/dL Normal 0.64-1.27 [facility] Comment on above: Performed By: #### B MP #### [address] Creatinine Clr Calc Pharmacy 101.34 [facility] Comment on above: Result Comment: PERF ORMED BY: [place] [address] PATHOLOGIST DIRECTOR OF HOUSING AND ENERGY SERVICES MARGO MINOR M.D. Performed By: #### B MP #### [address] Estimated GFR ( David > 60 [facility] Comment on above: Result Comment: GFR estimated reference range: According to KDOQI guidelines, <60 ml/min/1.73m2 is sufficient to diagnose a patient with chronic kidney disease. Performed By: #### B MP #### [address] Estimated GFR (Non- Am > 60 [facility] Comment on above: Performed By: #### B MP #### [address] Glucose [Mass/Vol] 101 mg/dL High 70-100 [facility] Comment on above: Result Comment: Success Glucose Reference Range is dependent on time and content of last meal. Glucose of more than 200 mg/dL in a nonstressed, ambulatory subject supports the diagnosis of Diabetes Mellitus. ADA recommended reference range Performed By: #### B MP #### [address] Potassium [Moles/Vol] 4.3 mmol/L Normal 3.5-5.1 [facility] Comment on above: Performed By: #### B MP #### [place] [address] [place] Sodium [Moles/Vol] 138 mmol/L Normal 136-146 [facility] Comment on above: Performed By: #### B MP #### [address] Urea nitrogen [Mass/Vol] 13 mg/dL Normal 9-23 [facility] Comment on above: Performed By: #### B MP #### [address] [address] [place] Calculi, Urinaryon 1 Ca Oxalate Dihydrate 60 % Normal . [facility] Comment on above: Performed By: #### C ALCULI #### [facility] , Ca Oxalate Monohydrate 30 % Normal . [facility] Comment on above: Performed By: #### C ALCULI #### [facility] , Color (U) Moy Normal . [facility] Comment on above: Performed By: #### C ALCULI #### [facility] , Comment: Normal . [facility] Comment on above: Result Comment: Liz guidry questions regarding Calculi Analysis [facility] at: [phone]. Performed By: #### C ALCULI #### [facility] , Composition Normal . [facility] Comment on above: Result Comment: Perc entage (Represents the % composition) Performed By: #### C ALCULI #### [facility] , Disclaimer: Normal . [facility] Comment on above: Result Comment: This test was developed and its performance characteristics determined by [facility]. It has not been cleared or approved by the Food and Drug Administration. Performed at: [facility] [address] [place] [address] Dr Castillo, [place], [place] [id number] Ballroom Dance Instructor: Anthony Grey MD, Phone: [phone] Performed By: #### C ALCULI #### [facility] , Hydroxyapatite 10 % Normal . [facility] Comment on above: Performed By: #### C ALCULI #### [facility] , Note Normal . [facility] Comment on above: Result Comment: Calc josafat report will follow via computer, mail or negative stripper delivery. PERFORMED BY: [place] [address] PATHOLOGIST DIRECTOR OF HOUSING AND ENERGY SERVICES MARGO MINOR M.D. Performed By: #### C ALCULI #### [facility] , Photo Normal . [facility] Comment on above: Result Comment: Shirlene mueller will follow under a separate cover Performed By: #### C ALCULI #### [facility] , Size 6x6 Normal . [facility] Comment on above: Result Comment: Mult iple pieces received. Dimensions of the largest piece reported. Performed By: #### C ALCULI #### [facility] , Source Ureter Normal . [facility] Comment on above: Performed By: #### C ALCULI #### [facility] , Weight 110 Normal . [facility] Comment on above: Performed By: #### C ALCULI #### [facility] , ECG 12 lead ECGon 02-27-2021 ECG 12 lead ECG [facility] [place] [address] Electrocardiograph Report Signed Patient: Jam Toscano MR#: [id number] : 1965 Acct:[id number] Age/Sex: 55 / M ADM Date: 02/27/21 Loc: [place] Room: Type: [facility] Attending [...] 02/27/21 1110 Signed By: 02/27/21 1225 Normal [facility] Mikey 02-27-2021 L -------- -------- Specimen: Received: 02/27/21 Status: EMELI Mark Num: [id number] Spec Type: Surgical Subm Dr: Rigo Gonzalez Jr, MD, FACS Tissues: A Urinary Calculus (URETHRAL STONE) Procedures: Level 1 Gross -------- Patient Age/Sex Location Account Attending Physician -------- Jam Toscano 55/M [place] [id number] Rigo Gonzalez Jr, MD, FACS -------- SPEC NUM: [id number] RECD: 02/27/21 STATUS: EMELI MARK NUM: [id number] RADHA: 02/27/21- [facility] DR: Rigo Gonzalez Jr, MD, FACS ENTERED: 02/27/21-[address]: SPEC TYPE: Surgical DEPT: S [...] Microscopic Description Gross examination only CPT Codes 57461 -------- -------- Specimen: [id number] Received: 02/27/21 Status: EMELI Dupree Num: [id number] Spec Type: Surgical Subm Dr: Rigo Gonzalez Jr, MD, FACS Tissues: A Urinary Calculus (URETHRAL STONE) Procedures: Level 1 Gross -------- Patient: Jam Toscano [id number] (Continued) -------- Signed (signature on file) Silvestre Poon MD 02/28/21 1428 Normal [facility] COVID-19 FRon 02-25-2021 SARS-CoV-2 (COVID-19) RNA BERNARDO+probe Ql (Unsp spec) Negative Normal Negative [facility] Comment on above: Order Comment: Healt hcare Worker?: N Result Comment: Refe rence: Negative Testing for SARS-CoV-2 by RT-PCR This test was developed and its performance characteristics determined by [employer] ([employer]) and validated at the [facility]. This test has not been FDA cleared [...] is terminated or revoked sooner. PERFORMED BY: [facility] [address] [place] [address] PATHOLOGIST DIRECTOR OF HOUSING AND ENERGY SERVICES MARGO MINOR M.D. Performed By: #### C OVID-19 [facility] #### [facility] [address] [place] [address] COVID-19 Positive/Negativeon 02-25-2021 COVID-19 Positive/Negative Negative Negative [facility] Comment on above: Reference: NegativeT esting for SARS-CoV-2 by RT-PCRThis test was developed and its performance characteristics determined by [employer] ([employer]) and validated at the [facility]. This test has not been FDA cleared [...] Otheron 02-25-2021 Coronavirus 2019 PCR Interp N/A [facility] XR ANKLE GENERAL 3V AP/LAT/O BL LTon 02-20-2021 [facility] DXA-AXIAL SKELETONon [facility] Vital Signs Date Time Vital Sign Value Performing Clinician Lucy waggoner 06-06-2025 08:17-0400 Body mass index (BMI) [Ratio] 26.81 kg/m2 Darrian Dubon MD Work Phone: [facility] 06-06-2025 08:17-0400 Body weight 75.3 kg Darrian Dubon MD Work Phone: [facility] 06-06-2025 08:17-0400 Diastolic blood pressure 62 mm[Hg] Darrian Dubon MD Work Phone: [facility] 06-06-2025 08:17-0400 Heart rate 66 /min Darrian Dubon MD Work Phone: [facility] 06-06-2025 08:17-0400 Systolic blood pressure 124 mm[Hg] Darrian Dubon MD Work Phone: [facility] 02-14-2025 07:10-0400 Body mass index (BMI) [Ratio] 28.12 kg/m2 Darrian Dubon MD Work Phone: [facility] 02-14-2025 07:10-0400 Body weight 79 kg Darrian Dubon MD Work Phone: [facility] 02-14-2025 07:10-0400 Diastolic blood pressure 74 mm[Hg] Darrian Dubon MD Work Phone: [facility] 02-14-2025 07:10-0400 Heart rate 66 /min Darrian Dbuon MD Work Phone: [facility] 02-14-2025 07:10-0400 Systolic blood pressure 134 mm[Hg] Darrian Dubon MD Work Phone: [facility] 10-05-2024 07:15-0500 Body mass index (BMI) [Ratio] 27.66 kg/m2 Darrian Dubon MD Work Phone: [facility] 10-05-2024 07:15-0500 Body weight 77.7 kg Darrian Dubon MD Work Phone: [facility] 10-05-2024 07:15-0500 Diastolic blood pressure 76 mm[Hg] Darrian Dubon MD Work Phone: [facility] 10-05-2024 07:15-0500 Heart rate 66 /min Darrian Dubon MD Work Phone: [facility] 10-05-2024 07:15-0500 Systolic blood pressure 128 mm[Hg] Darrian Dubon MD Work Phone: [facility] 05-09-2024 10:05-0400 Diastolic blood pressure 78 mm[Hg] Rheu Maria De Jesus Work Phone: [facility] 05-09-2024 10:05-0400 Heart rate 78 /min Rheu Maria De Jesus Work Phone: [facility] 05-09-2024 10:05-0400 Systolic blood pressure 121 mm[Hg] Geoffrey Pretty Work Phone: [facility] 05-09-2024 09:08-0400 Body mass index (BMI) [Ratio] 27.16 kg/m2 Nidia Ascencio APRN.KNURLING MACHINE TENDER Work Phone: [facility] 05-09-2024 09:08-0400 Body temperature 98.4 [degF] Nidia Ascencio APRN.KNURLING MACHINE TENDER Work Phone: [facility] 05-09-2024 09:08-0400 Body weight 76.3 kg Nidia Ascencio APRN.KNURLING MACHINE TENDER Work Phone: [facility] 05-09-2024 09:08-0400 Diastolic blood pressure 79 mm[Hg] Nidia Ascencio APRN.KNURLING MACHINE TENDER Work Phone: [facility] 05-09-2024 09:08-0400 Heart rate 89 /min Nidia Ascencio APRN.KNURLING MACHINE TENDER Work Phone: [facility] 05-09-2024 09:08-0400 SaO2% (BldA) [Mass fraction] 97 % Nidia Ascencio APRN.KNURLING MACHINE TENDER Work Phone: [facility] 05-09-2024 09:08-0400 Systolic blood pressure 118 mm[Hg] Nidia Ascencio APRN.KNURLING MACHINE TENDER Work Phone: [facility] 03-14-2024 09:17-0400 Body mass index (BMI) [Ratio] 26.66 kg/m2 Nidia Ascencio APRN.KNURLING MACHINE TENDER Work Phone: [facility] 03-14-2024 09:17-0400 Body weight 74.9 kg Nidia Ascencio APRN.KNURLING MACHINE TENDER Work Phone: [facility] 03-14-2024 09:17-0400 Diastolic blood pressure 83 mm[Hg] Nidia Ascencio APRN.KNURLING MACHINE TENDER Work Phone: [facility] 03-14-2024 09:17-0400 Heart rate 97 /min Nidia Ascencio APRN.KNURLING MACHINE TENDER Work Phone: [facility] 03-14-2024 09:17-0400 SaO2% (BldA) [Mass fraction] 97 % Nidia Ascencio APRN.CNP Work Phone: [facility] 03-14-2024 09:17-0400 Systolic blood pressure 121 mm[Hg] Nidia Ascencio APRN.CNP Work Phone: [facility] Encounters Encounter Date Encounter Type Care Provider Facility Start: 06-21-2025 End: 06-21-2025 ambulatory Salmon Talal Sarmini Facility:[facility] Start: 06-07-2025 End: 06-07-2025 ambulatory Salmon Talal Sarmini Facility:[facility] Start: 06-06-2025 End: 06-06-2025 Office outpatient visit [...] disease prevention Start: 06-06-2025 End: 06-06-2025 ambulatory JOSE L Griselda [facility] Facility:[facility] Start: 06-06-2025 End: 06-06-2025 Subsequent hospital visit by physician Bone Density [facility] Maria De Jesus Radiology Comment on above: Seropositive rheumat oid arthritis (HCC) [M05.9] Start: 05-31-2025 End: 05-31-2025 ambulatory Salmon Talal Sarmini Facility:[facility] Start: 05-23-2025 End: 05-23-2025 ambulatory JOSE L M Y Facility:[facility] Start: 05-22-2025 End: 05-22-2025 ambulatory Salmon Talal Sarmini Facility:[facility] Start: 05-11-2025 End: 05-11-2025 ambulatory Salmon Talal Sarmini Facility:[facility] Start: 05-03-2025 End: 05-03-2025 Christopher Veliz DO Work Phone: [facility] Start: 05-03-2025 End: 05-03-2025 Bamboo flowsheet Jr. Bradly Veliz DO Work Phone: [facility] Start: 05-03-2025 End: 05-03-2025 Office outpatient visit 15 minutes Jr. Bradly Veliz DO Work Phone: [employer] [facility] Comment on above: Pain and swelling of right knee (Primary Dx); History of total left knee replacement; History of total right knee replacement; Pain and swelling of left knee Start: 05-03-2025 End: 05-03-2025 ambulatory BRADLY Not Available Start: 03-29-2025 End: 03-29-2025 Bamboo flowsheet Jr. Bradly Veliz DO Work Phone: [facility] Start: 03-29-2025 End: 03-29-2025 Bamboo flowsheet Jr. Bradly Veliz DO Work Phone: [facility] Start: 03-29-2025 End: 03-29-2025 Office outpatient visit 15 minutes Jr. Bradly Veliz DO Work Phone: [employer] [facility] Comment on above: Pain of right hip (P rimary Dx); Primary osteoarthritis of right hip; Arthritis of knee, left; History of total hip replacement, right Start: 03-29-2025 End: 03-29-2025 ambulatory BRADLY Not Available Start: 02-14-2025 End: 02-14-2025 ambulatory JOSE L LACKEY Facility:[facility] Start: 02-14-2025 End: 02-14-2025 Office outpatient [...] 12-14-2024 End: 12-14-2024 ambulatory Luis Antonio García Facility:[facility] Start: 11-21-2024 End: 11-23-2024 Telephone encounter Darrian Dubon MD Work Phone: Rheumatology Comment on above: Patient Update Start: 11-21-2024 End: 11-21-2024 ambulatory Marcin RAMÍREZ Facility:[facility] Start: 11-21-2024 End: 11-21-2024 ambulatory Marcin RAMÍREZ Facility:[facility] Start: 10-05-2024 End: 10-05-2024 ambulatory DARRIAN DUBON Facility:[facility] Start: 10-05-2024 End: 10-05-2024 Office outpatient visit 25 minutes Darrian Dubon MD Work Phone: Rheumatology Comment on above: Seropositive rheumat oid arthritis (HCC) (Primary Dx); Rheumatoid arthritis involving multiple sites with positive rheumatoid factor (HCC); On sulfasalazine therapy; Ulcerative pancolitis (HCC); Other osteoporosis without current pathological fracture; History of bisphosphonate therapy; Counseling on health promotion and disease prevention Start: 05-09-2024 End: 05-09-2024 ambulatory Geoffrey Ellsi 2 Maria De Jesus Work Phone: Infusion Comment on above: Other osteoporosis w ithout current pathological fracture (Primary Dx) Start: 05-09-2024 End: 05-09-2024 Patient encounter procedure Nidia Ascencio APRN.KNURLING MACHINE TENDER Work Phone: Rheumatology Comment on above: 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); Vitamin D deficiency; Other osteoporosis without current pathological fracture Start: 05-03-2024 Telephone encounter Maria G slater MD Work Phone: Rheumatology Comment on above: Results (Labs) Start: 04-11-2024 Telephone encounter Nidia retana APRN.KNURLING MACHINE TENDER Work Phone: Rheumatology Comment on above: Patient Update Start: 03-14-2024 End: 03-14-2024 Subsequent hospital visit by physician Xr [facility] Rad[facility] Comment on above: Rheumatoid arthritis involving multiple sites with positive rheumatoid factor (HCC) [M05.79] Start: 03-14-2024 End: 03-14-2024 Patient encounter procedure Nidia Griselda Silva MONTAÑO Work Phone: Rheumatology Comment on above: 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); Vitamin D deficiency; Other osteoporosis without current pathological fracture; Encounter for medication review and counseling Start: 02-11-2024 Telephone encounter Nidia retana APRN.KNURLING MACHINE TENDER Work Phone: Rheumatology Start: 05-04-2023 Telephone encounter Nidia retana APRN.KNURLING MACHINE TENDER Work Phone: Rheumatology Comment on above: Patient Update Start: 05-04-2023 End: 05-04-2023 ambulatory Nidia Griselda Silva MIR.KNURLING MACHINE TENDER Work Phone: Rheumatology Comment on above: Rheumatoid [...] 05-04-2023 Telemedicine consultation with patient Nidia Ascencio KNURLING MACHINE TENDER Work Phone: [facility] Start: 03-02-2023 End: 03-02-2023 ambulatory Nidia Griselda Silva MOSERKNURLING MACHINE TENDER Work Phone: Rheumatology Comment on above: 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); Encounter to discuss test results; Counseling on health promotion and disease prevention; Ulcerative pancolitis (HCC); Other osteoporosis without current pathological fracture Start: 03-02-2023 End: 03-02-2023 Telemedicine consultation with patient Nidia Gavirialainey MOSERKNURLING MACHINE TENDER Work Phone: [facility] Start: 02-11-2023 End: 02-12-[address] JOSE L LACKEY . Facility: Start: 01-14-2023 Telephone encounter Nidia retana APRN.KNURLING MACHINE TENDER Work Phone: Rheumatology Comment on above: Outside Lab Results (Vit D ) Start: 12-29-2022 End: 12-29-2022 ambulatory Nidia Ascencio APRN.KNURLING MACHINE TENDER Work Phone: Rheumatology Comment on above: 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); Vitamin D deficiency; Encounter to discuss test results; Encounter for medication review and counseling; Counseling on health promotion and disease prevention; Other osteoporosis without current pathological fracture Start: 12-29-2022 End: 12-29-2022 Telemedicine consultation with patient Nidia Ascencio APRN.KNURLING MACHINE TENDER Work Phone: [facility] Start: 11-24-2022 End: 11-25-[address] JOSE L LACKEY . Facility:[facility] Start: 11-06-2022 End: 11-07-[address] JOSE L LACKEY . Facility:[facility] Start: 09-24-2022 End: 09-24-[address] JOSE L LACKEY . Facility:[facility] Start: 09-23-2022 End: 09-23-2022 Subsequent hospital visit by physician Bone Density [facility] Maria De Jesus Radiology Comment on above: Other osteoporosis w ithout current pathological fracture [M81.8] Start: 02-10-2022 Telephone encounter Darrian Florez MD Work Phone: Rheumatology Comment on above: Results Start: 02-25-2021 End: 02-25-2021 Patient encounter procedure Rigo Gonzalez -Pre-Surgical Testing Start: 02-20-2021 End: 02-20-2021 Subsequent hospital visit by physician Xr [facility] Radiology Comment on above: Seropositive rheumat oid arthritis (HCC) [M05.9] Start: 08-22-2020 End: 08-22-2020 Subsequent hospital visit by physician Bone Density [facility] Maria De Jesus Radiology Comment on [...] Radex hand minimum 3 views Nidia Ascencio DIRECTOR OF SUSTAINABILITY PROGRAMS.KNURLING MACHINE TENDER Work Phone: Start: 01-12-2023 VITAMIN D 25 HYDROXY Am y Griselda Ascencio DIRECTOR OF SUSTAINABILITY PROGRAMS.KNURLING MACHINE TENDER Work Phone: Start: 09-23-2022 Dxa bone density [...] Start: 12-01-2026 Diabetes Screening Diabetes Screenin g [facility] Start: 05-02-2026 End: 05-02-2026 Patient encounter procedure 05/02/2026 10:00 AM EDT Office Visit [facility] [address] [place] [id number] Jr. Bradly Veliz, DO [address] [place] [address] [facility] Start: 03-28-2026 End: 03-28-2026 Patient encounter procedure 03/28/2026 10:00 AM EDT Office Visit [facility] [address] [place] [id number] Jr. Bradly Veliz, DO [address] [place] [address] [facility] Start: 10-31-2025 End: 10-31-2025 Patient encounter procedure 10/31/2025 10:00 AM EST Office Visit Rheumatology [address] [facility] [place] [address] Darrian Dubon MD [address] [facility] [place] [address] Please also offer another apt later in [...] ambulatory 05/23/2025 8:00 AM EDT Results Only [facility] [address] [place] [address] [place] [address] labs [facility] Comment on above: labs Start: 05-16-2025 End: 08-15-2025 25-hydroxyvitamin D3 [Mass/volume] in Serum or Plasma VITAMIN D 25 HYDROXY Lab Routine Seropositive rheumatoid arthritis (HCC) Ulcerative pancolitis (HCC) Other osteoporosis without current pathological fracture History of bisphosphonate therapy Expected: 05/16/2025, Expires: 08/15/2025 [facility] Comment on above: Expected: 05/16/2025 , Expires: 08/15/2025 Start: 05-16-2025 End: 08-15-2025 C reactive protein [Mass/volume] in Serum or Plasma C-REACTIVE PROTEIN Lab Routine Seropositive rheumatoid arthritis (HCC) Ulcerative pancolitis (HCC) Expected: 05/16/2025, Expires: 08/15/2025 [facility] Comment on above: Expected: 05/16/2025 , Expires: 08/15/2025 Start: 05-16-2025 End: 08-15-2025 CBC W Auto Differential panel - Blood COMPLETE BLOOD COUNT AND DIFFERENTIAL Lab Routine Seropositive rheumatoid arthritis (HCC) Rheumatoid arthritis involving multiple sites with positive rheumatoid factor (HCC) On sulfasalazine therapy Ulcerative pancolitis (HCC) Expected: 05/16/2025, Expires: 08/15/2025 [facility] Work Phone: Comment on above: Expected: 05/16/2025 , Expires: 08/15/2025 Start: 05-16-2025 End: 08-15-2025 Collagen crosslinked C-telopeptide [Mass/volume] in Serum or Plasma C TELOPEPTIDE, BETA Lab Routine Other osteoporosis without current pathological fracture History of bisphosphonate therapy Expected: 05/16/2025, Expires: 08/15/2025 [facility] Comment on above: Expected: 05/16/2025 , Expires: 08/15/2025 Start: 05-16-2025 End: 08-15-2025 Renal function 2000 panel - Serum or Plasma RENAL FUNCTION PANEL Lab Routine Other osteoporosis without current pathological fracture History of bisphosphonate therapy Expected: 05/16/2025, Expires: 08/15/2025 [facility] Comment on above: Expected: 05/16/2025 , Expires: 08/15/2025 Start: 05-03-2025 End: 05-03-2025 Patient encounter procedure [facility] Comment on above: Arrived Start: 03-29-2025 End: 03-29-2025 Patient encounter procedure 03/29/2025 10:00 AM EDT Office Visit [facility] [address] [facility] [address] [place] [address] Jr. Bradly Veliz C, DO [address] [facility] [address] [place] [address] Arrived [facility] Comment on above: Arrived Start: 02-14-2025 End: 02-14-2025 Patient encounter procedure 02/14/2025 7:20 AM EDT Office Visit Rheumatology [address] [place] [address] Darrian Dubon MD [address] [place] [address] Dubon Rheumatology Comment on above: future with dr. Vince melton Start: 11-16-2024 Medicare Advantage Annual Wellness Visit Medicare Advantage Annual Wellness Visit [facility] Start: 10-05-2024 End: 10-05-2024 Patient encounter procedure 10/05/2024 7:20 AM EST Office Visit Rheumatology [address] [place] [address] Darrian Dubon MD [address] [place] [address] RA Rheumatology Comment on above: RA Start: 09-16-2024 End: 12-16-2024 25-hydroxyvitamin D3 [Mass/volume] in Serum or Plasma VITAMIN D 25 HYDROXY Lab Routine Vitamin D deficiency Other osteoporosis without current pathological fracture Expected: 09/16/2024 (Approximate), Expires: 12/16/2024 [facility] Comment on above: Expected: 09/16/2024 (Approximate), Expires: 12/16/2024 Start: 09-16-2024 End: 12-16-2024 C reactive protein [Mass/volume] in Serum or Plasma C-REACTIVE PROTEIN Lab Routine Rheumatoid arthritis involving multiple sites with positive rheumatoid factor (HCC) Expected: 09/16/2024 (Approximate), Expires: 12/16/2024 [facility] Work Phone: Comment on above: Expected: 09/16/2024 (Approximate), Expires: 12/16/2024 Start: 09-16-2024 End: 12-16-2024 Erythrocyte sedimentation rate SEDIMENTATION RATE, WESTERGREN Lab Routine Rheumatoid arthritis involving multiple sites with positive rheumatoid factor (HCC) Expected: 09/16/2024 (Approximate), Expires: 12/16/2024 [facility] Comment on above: Expected: 09/16/2024 (Approximate), Expires: 12/16/2024 Start: 09-16-2024 End: 12-16-2024 Renal function 2000 panel - Serum or Plasma RENAL FUNCTION PANEL Lab Routine Rheumatoid arthritis involving multiple sites with positive rheumatoid factor (HCC) Other osteoporosis without current pathological fracture Expected: 09/16/2024 (Approximate), Expires: 12/16/2024 [facility] Comment on above: Expected: 09/16/2024 (Approximate), Expires: 12/16/2024 Start: 07-17-2024 Influenza vaccination C [facility] Start: 05-09-2024 End: 05-09-2024 ambulatory 05/09/2024 9:30 AM EDT Infusion Center Infusion [address] [facility] [place] [address] Return labs in 1 month, for reclast and ov in 1-2 months after labs Infusion Comment on above: Return labs in 1 mon , for reclast and ov in 1-2 months after labs Start: 05-09-2024 End: 05-09-2024 Patient encounter procedure 05/09/2024 9:00 AM EDT Office Visit Rheumatology [address] [facility] [place] [address] Nidia Ascencio, DIRECTOR OF SUSTAINABILITY PROGRAMS.KNURLING MACHINE TENDER [address] [facility] [place] [address] Return labs in 1 month, for reclast and ov in 1-2 months after labs Rheumatology Comment on above: Return labs in mon , for reclast and ov in 1-2 months after labs Start: 2024 RSV Vaccine (1 - 1-d ose 60+ series) RSV Vaccine (1 - 1-dose 60+ series) [facility] Start: 2024 RSV Vaccine (1 - Ris k 60-74 years 1-dose series) RSV Vaccine (1 - Risk 60-74 years 1-dose series) [facility] Start: 04-13-2024 End: 07-13-2024 25-hydroxyvitamin D3 [Mass/volume] in Serum or Plasma VITAMIN D 25 HYDROXY Lab Routine Rheumatoid arthritis involving multiple sites with positive rheumatoid factor (HCC) Vitamin D deficiency Expected: 04/13/2024 (Approximate), Expires: 07/13/2024 [facility] Comment on above: Expected: 04/13/2024 (Approximate), Expires: 07/13/2024 Start: 04-13-2024 End: 07-13-2024 C reactive protein [Mass/volume] in Serum or Plasma C-REACTIVE PROTEIN Lab Routine Rheumatoid arthritis involving multiple sites with positive rheumatoid factor (HCC) Expected: 04/13/2024 (Approximate), Expires: 07/13/2024 [facility] Comment on above: Expected: 04/13/2024 (Approximate), Expires: 07/13/2024 Start: 04-13-2024 End: 07-13-2024 Erythrocyte sedimentation rate SEDIMENTATION RATE, WESTERGREN Lab Routine Rheumatoid arthritis involving multiple sites with positive rheumatoid factor (HCC) Expected: 04/13/2024 (Approximate), Expires: 07/13/2024 [facility] Comment on above: Expected: 04/13/2024 (Approximate), Expires: 07/13/2024 Start: 04-13-2024 End: 07-13-2024 Renal function 2000 panel - Serum or Plasma RENAL FUNCTION PANEL Lab Routine Rheumatoid arthritis involving multiple sites with positive rheumatoid factor (HCC) Expected: 04/13/2024 (Approximate), Expires: 07/13/2024 [facility] Work Phone: Comment on above: Expected: 04/13/2024 (Approximate), Expires: 07/13/2024 Start: 04-13-2024 End: 04-13-2025 XR Hand - bilateral PA and Lateral and Oblique XR HAND GENERAL 3V PA/LAT/OBL BILATERAL Radiology Routine Rheumatoid arthritis involving multiple sites with positive rheumatoid factor (HCC) Expected: 04/13/2024 (Approximate), Expires: 04/13/2025 [facility] Comment on above: Expected: 04/13/2024 (Approximate), Expires: 04/13/2025 Start: 11-16-2023 Behavioral Health Screening Behavioral Health Screening [facility] Start: 11-16-2023 Depression Assessment Depression Ass essment [facility] Start: 08-22-2023 DIABETES SCREEN DIABETES SCREEN [facility] Start: 07-17-2023 Influenza vaccination C [facility] Start: 07-04-2023 End: 09-03-2023 25-hydroxyvitamin D3 [Mass/volume] in Serum or Plasma VITAMIN D 25 HYDROXY Lab Routine Other osteoporosis without current pathological fracture Expected: 07/04/2023 (Approximate), Expires: 09/03/2023 [facility] Work Phone: Comment on above: Expected: 07/04/2023 (Approximate), Expires: 09/03/2023 Start: 07-04-2023 End: 09-03-2023 MONOCLONAL PROT UR W/INTERP MONOCLONAL PROT UR W/INTERP Lab Routine Elevated serum immunoglobulin free light chain level Expected: 07/04/2023 (Approximate), Expires: 09/03/2023 [facility] Work Phone: Comment on above: Expected: 07/04/2023 (Approximate), Expires: 09/03/2023 Start: 07-04-2023 End: 09-03-2023 Renal function 2000 panel - Serum or Plasma RENAL FUNCTION PANEL Lab Routine Other osteoporosis without current pathological fracture Expected: 07/04/2023 (Approximate), Expires: 09/03/2023 [facility] Work Phone: Comment on above: Expected: 07/04/2023 (Approximate), Expires: 09/03/2023 Start: 12-29-2022 End: 02-28-2023 25-hydroxyvitamin D3 [Mass/volume] in Serum or Plasma VITAMIN D 25 HYDROXY Lab Routine Vitamin D deficiency Expected: 12/29/2022, Expires: 02/28/2023 [facility] Work Phone: Comment on above: Expected: 12/29/2022 , Expires: 02/28/2023 Start: 11-16-2022 DEPRESSION ASSESSMENT DEPRESSION ASS ESSMENT [facility] Start: 07-17-2022 Influenza vaccination INFLUENZA (#1) [facility] Start: 07-17-2021 Influenza vaccination INFLUENZA (#1) [facility] Start: 04-15-2021 COVID-19 VACCINE (2 - Starr risk 3-dose series) COVID-19 VACCINE (2 - Starr risk 3-dose series) [facility] Start: 04-15-2021 COVID-19 VACCINE (2 - Starr risk series) COVID-19 VACCINE (2 - Starr risk series) [facility] Start: 05-03-2020 PNEUMOCOCCAL (3 - PPSV23 if available, else PCV20) PNEUMOCOCCAL (3 - PPSV23 if available, else PCV20) [facility] Start: 05-03-2020 PNEUMOCOCCAL (3 - PPSV23 or PCV20) PNEUMOCOCCAL (3 - PPSV23 or PCV20) [facility] Start: 05-03-2020 Pneumococcal vaccination Pneumococcal Vaccine (3 of 3 - PPSV23 or PCV20) [facility] Start: 05-03-2020 Pneumococcal Vaccine : 50+ (3 of 3 - PPSV23, PCV20 or PCV21) Pneumococcal Vaccine: 50+ (3 of 3 - PPSV23, PCV20 or PCV21) [facility] Start: 02-11-2020 Adult depression screening assessment DEPRESSION SCREENING [facility] Start: 2019 PROSTATE CANCER SCREENING DISCUSSION PROSTATE CANCER SCREENING DISCUSSION [facility] Start: 2019 Prostate specific antigen measurement Prostate Cancer Screening Discussion [facility] Start: 2014 SHINGRIX VACCINE (1 of 2) SHINGRIX VACCINE (1 of 2) [facility] Start: 2009 COLOGUARD (FIT-DNA) COLOGUARD (FIT-D NA) [facility] Start: 2009 Colonoscopy COLONOSCOPY [facility] Start: 2009 COLORECTAL CANCER SCREENING COLORECTAL CANCER SCREENING [facility] Start: [address] COLONOGRAPHY [facility] Start: 2009 FECAL OCCULT BLOOD FECAL OCCULT BLOO D [facility] Start: 2009 Prostate specific antigen measurement Prostate Cancer Screening Discussion [facility] Start: 2009 Screening for malign ant neoplasm of colon [facility] Start: 2009 SIGMOIDOSCOPY SIGMOIDOSCOPY [facility] Start: 1999 Lipid panel Lipid Screening [facility] Start: 1999 LIPID SCREEN LIPID SCREEN [facility] Start: 1983 SHINGRIX VACCINE (1 of 2) SHINGRIX VACCINE (1 of 2) [facility] Start: 1983 Urine microalbumin profile [facility] Start: 1982 Anxiety Screening Anxiety Screening [facility] Start: 1982 Depression Screening Depression Scre ening [facility] Start: 1982 HIV SCREENING HIV SCREENING [facility] Start: 1982 HIV screening HIV Screening [facility] Start: 1982 MMR Vaccine (1 of 2 - Risk 2-dose series) MMR Vaccine (1 of 2 - Risk 2-dose series) [facility] Start: 1974 Meningococcal B Vaccine: Consider Based On Risk (1 of 4 - Increased Risk) Meningococcal B Vaccine: Consider Based On Risk (1 of 4 - Increased Risk) [facility] Start: 1964 Screening for malign ant neoplasm of colon [facility] End: 11-04-2025 BD DXA TRABECULAR BONE SCORE (TBS) BD DXA TRABECULAR BONE SCORE (TBS) Radiology Routine Seropositive rheumatoid arthritis (HCC) Ulcerative pancolitis (HCC) Other osteoporosis without current pathological fracture History of bisphosphonate therapy 1 Occurrences starting 10/05/2024 until 11/04/2025 [facility] Comment on above: 1 Occurrences starti ng 10/05/2024 until 11/04/2025 BD DXA TRABECULAR LIMA NE SCORE (TBS) BD DXA TRABECULAR BONE SCORE (TBS) Radiology Routine Seropositive rheumatoid arthritis (HCC) Ulcerative pancolitis (HCC) Other osteoporosis without current pathological fracture History of bisphosphonate therapy 06/06/2025 8:13 AM EDT [facility] End: 11-04-2025 DXA Skeletal system.axial Views for bone density DXA-AXIAL SKELETON Radiology Routine Seropositive rheumatoid arthritis (HCC) Ulcerative pancolitis (HCC) Other osteoporosis without current pathological fracture History of bisphosphonate therapy 1 Occurrences starting 10/05/2024 until 11/04/2025 [facility] Comment on above: 1 Occurrences starti ng 10/05/2024 until 11/04/2025 DXA Skeletal system.axial Views for bone density DXA-AXIAL SKELETON Radiology Routine Seropositive rheumatoid arthritis (HCC) Ulcerative pancolitis (HCC) Other osteoporosis without current pathological fracture History of bisphosphonate therapy 06/06/2025 8:13 AM EDT [facility] Work Phone: [facility] Immunizations Immunization Date Immunization Notes Care Provider Feng diaz 10-11-2024 influenza virus vacc ine, unspecified formulation Bone Maria De Jesus [facility] 06-09-2022 zoster vaccine recombinant Nidia Silva DIRECTOR OF SUSTAINABILITY PROGRAMS.KNURLING MACHINE TENDER Work Phone: [facility] 03-17-2022 zoster vaccine recombinant Nidia Silva DIRECTOR OF SUSTAINABILITY PROGRAMS.KNURLING MACHINE TENDER Work Phone: [facility] 09-27-2020 Influenza, injectabl e, Madin [place] Canine Kidney, preservative free, quadrivalent Nidia Silva DIRECTOR OF SUSTAINABILITY PROGRAMS.KNURLING MACHINE TENDER Work Phone: [facility] 09-27-2020 influenza virus vacc ine, unspecified formulation Nidia Ascencio DIRECTOR OF SUSTAINABILITY PROGRAMS.KNURLING MACHINE TENDER Work Phone: [facility] 10-28-2019 Influenza, injectabl e, Madin [place] Canine Kidney, quadrivalent with preservative Darrian Dubon MD Work Phone: [facility] 08-29-2019 influenza, injectabl e, quadrivalent, preservative free Nidia Silva ADEOLA.KNURLING MACHINE TENDER Work Phone: [facility] 08-15-2016 influenza, injectabl e, quadrivalent, preservative free Darrian Dubon MD Work Phone: [facility] 12-08-2015 hepatitis A and hepa titis B vaccine Darrian Dubon MD Work Phone: [facility] 11-01-2015 pneumococcal conjuga te vaccine, 13 valent Darrian Dubon MD Work Phone: [facility] 07-31-2015 influenza, seasonal, injectable, preservative free Darrian Dubon MD Work Phone: [facility] 05-31-2015 hepatitis A and hepa titis B vaccine Darrian Dubon MD Work Phone: [facility] 05-03-2015 hepatitis A and hepa titis B vaccine Darrian Dubon MD Work Phone: [facility] 05-03-2015 pneumococcal polysaccharide vaccine, 23 valent Darrian Dubon MD Work Phone: [facility] Payers Date Payer Category Payer Medicare DEVOTED MEDICARE DEVOTED HEALTH [id number] 2021-Present [phone] [address] [place] [address] [facility] [place] [id number] 2021 Medicare (Managed Care) DEVOTED HEALTH [id number] 5 2021 Private Health Insurance [facility] HMO [id number] .[id number] 2021 Unknown [id number] 2011 Medicare [id number] .[id number] 1964 Unknown [id number] 2.16.840.1.121110.3.579 .2.593 1964 Unknown [id number] 2.16.840.1.084249.3.579 .2.593 1964 Unknown [id number] 2.16.840.1.703815.3.579 .2.593 1964 Unknown [id number] 2.16.840.1.667432.3.579 .2.593 1964 Unknown [id number] 2.16.840.1.595460.3.579 .2.727 1964 Unknown [id number] 2.16.840.1.001555.3.579 .2.1259 1964 Unknown [id number] 2.16.840.1.306558.3.579 .2.1259 1964 Unknown [id number] 2.16.840.1.961168.3.579 .2.1259 1964 Unknown [id number] 2.16.840.1.934647.3.579 .2.9 1964 Unknown [id number] 2.16.840.1.765240.3.579 .2.9 1964 Unknown [id number] 2.16.840.1.761771.3.579 .2. 1964 Unknown [id number] 2.16.840.1.730702.3.579 .2. 1964 Unknown [id number] 2.16.840.1.212592.3.579 .2 1964 Unknown [id number] 2.16.840.1.048598.3.579 .2 1964 Unknown [id number] 2.16.840.1.371323.3.579 .2 1964 Unknown [id number] 2.16.840.1.258478.3.579 .2 1964 Unknown [id number] .16.840.1.562790.3.579 .2 1964 Unknown [id number] 2.16.840.1.393894.3.579 .2 1964 Unknown [id number] 2.16.840.1.067864.3.579 .2 1964 Unknown [id number] 2.16.840.1.999182.3.579 .2 1964 Unknown [id number] 2.16.840.1.696724.3.579 .2 1964 Unknown [id number] 2.16.840.1.118966.3.579 .2 1964 Unknown [id number] 2.16.840.1.570713.3.579 .272 Private Health Insurance Self Pay [id number] Self-pay Self Pay [id number] Social History Date Type Detail Facility Tobacco smoking stat us [facility] Unknown if ever smoked [facility] Start: 1965 Sex Assigned At Male [facility] Start: 01-24-2020 End: 12-01-2023 Tobacco smoking status NHIS Ex-smoker [facility] Start: 01-24-2020 End: 12-01-2023 Tobacco use and exposure Smokeless tobacco non-user [facility] Start: 02-20-2021 End: 05-09-2024 Alcohol intake Lifetime non-drinker (finding) [facility] Start: 01-24-2020 History SDOH Alcohol Frequency 1 [facility] Start: 01-24-2020 End: 12-01-2023 Tobacco Comment quit in 2011 [facility] Start: 1965 Sex Assigned At Not on file [facility] Start: 01-19-2022 End: 01-29-2022 Exposure to SARS-CoV-2 (event) Unable to assess [facility] End: 11-16-2011 History of tobacco use Current smoker [facility] Start: 01-24-2020 End: 05-04-2023 History of Social function [facility] Start: 01-24-2020 End: 05-04-2023 Alcohol Use Disorder Identification Test - Consumption [AUDIT-C] [facility] How often to you hav e a drink containing alcohol? Never [facility] Average Number of Drinks Not on file [facility] Start: 07-23-2020 End: 02-20-2021 Exposure to SARS-CoV-2 (event) Not sure [facility] End: 11-16-2011 History of tobacco use Cigarette Smoker [facility] Start: 04-21-2023 Tobacco use and exposure Former smokeless tobacco user [facility] Start: 06-16-2023 End: 05-03-2025 Alcoholic beverage intake Ex-drinker (finding) [facility] re Start: 04-06-2023 Alcohol Comment Caffeine: more than 4 cups per day [facility] Healthcare Goals Date Patient Goal Desired Activity /State Clinical Notes 08-22-2020 to 06-07-2025 Patient InstructionsAl-Darrian [place] MD - 06/06/2025 8:30 AM Blayne Anguiano, RT(R) - 06/06/2025 7:45 AM EDTJclyde Veliz, - 05/03/2025 10:00 AM EDTPatient Instructions Note [...] Recorded hepatitis A-hepatitis B vaccine 05/03/2015 Recorded Coy [facility] 06-06-2025 Instructions Darrian Dubon MD - 06/06/2025 8:46 AM EDT -PLEASE NOTE THAT WE REVIEW ALL YOUR TEST RESULTS AT YOUR NEXT FOLLOW UP VISIT WITH YOU. IF ANY ABNORMAL LAB REQUIRES SOONER ATTENTION, WE WILL CONTACT YOU. -If you have signed up on 4m[employer], we will release your test results through [employer]. I wish you the best of health [...] discuss your RA. Continue following with your Cloth Measurer Machine. Great work on your bone density. You [...] Additional information on methotrexate available at: The [facility] website : https://www.rheumatology.org/I-Am-A/Ernesto wyatt-Caregiver/Treatments/Methotrexat u-Usewexboou-Nzhkcjx and The [facility] website : https://.[facility]/health/ drugs/30883-nbupzrqprnpz - Please take your vitamin D with [...] track your nutrition and calcium intake on www.[employer].Thrupoint This provides macro and micronutrient intake and requirements. - You can track your calcium intake on [employer].Thrupoint or any other calcium tracker of your [...] youtube and copy and paste this link: [email or web address] [email or web address].be/[email or web address] This is done by a Physical Medicine and Rehab doctor who is a topology professor in [employer]. She completed a PhD at the [employer]. I hope you find it helpful. Please take precautions and start gradual when starting a new exercise program. - I recommend reviewing the exercises from the LIFTMOR study. If you are interested in considering these strength training exercises you will need to work with a Ship/Rec/Doc Control or Physical Therapist, as they need to [...] low bone mass. BMJ Open. 2017 Apr 12;7(6):m596198. doi: 10.1136/eqfwaix-6730-996124. PMID: 45748291; PMCID: LWZ4606090. -Twin Nick, Chetan Gamble, Rosa Maria MONTANO, Shankar WICK. A Comparison of Bone-Targeted Exercise Strategies to Reduce Fracture Risk in Middle-Aged and Older Men with Osteopenia and Osteoporosis: LIFTMOR-M Semi-Randomized Controlled Trial. J Bone Baraga Res. 2020 Jun;35(8):0604-8492. doi: 10.1002/jbmr.4008. Epub 2019Feb 12. PMID: 70555169. Information regarding Whole Body Vibration Plate: You can review this article. Ref: Aparicio RDJ, Aparicio RG, Aparicio LC, Arlene BURT, Shayla Robledo DC, Aníbal Villalobos. Effectiveness of whole-body vibration on bone mineral density in postmenopausal women: a systematic review and meta-analysis of randomized controlled trials. Osteoporos Int. 2022;34(1):29-52. doi: 10.1007/l77149-320-42777-k. Epub 2021Sep 09. PMID: 58026022. Their conclusion: only high frequency associated with [...] hazelnuts, legumes, soybeans and other beans) - [place] (potatoes, avocados, almonds, peanuts) - Chromium (broccoli, [...] Ther Adv Musculoskelet Dis. 2011 Oct;3(6):293-300. doi: 10.1177/0586814Q60162423. PMID: 36391826; PMCID: AOQ6986233. -SUDHEER Carrillo., NYLA Dodson., GHAZAL Flores. et al. Soy isoflavone intake inhibits bone resorption and stimulates bone formation in menopausal women: meta-analysis of randomized controlled trials. Eur J Clin Nutr 62, 155-161 (2007). https://doi.org/10.1038/sj.ejcn.882763 8 -Clyde Rosa, Trisha Lara, Harry De Leon. et al. Isoflavone intervention and its impact on bone mineral density in postmenopausal women: a systematic review and meta-analysis of randomized controlled trials. Osteoporos Int (2022). https://doi.org/10.1007/r95815-217-292 44-y -Jack Finch, Trisha Lara, Clyde Grant et al. Effects of isoflavone interventions on bone mineral density in postmenopausal women: a systematic review and meta-analysis of randomized controlled trials. Osteoporos Int 31, 2056-3981 (2020). https://doi.org/10.1007/z54455-276-632 76-z - Benefits of consuming soy in whole foods are listed in this article at the [facility] website: https://www.pcr.org/good-nutrition/nu trition-information/hkl-iwj-hzrphk - Prunes have been reported to help with bone density and inflammation, and are also beneficial for the gut microbiome and constipation. -The Prune Study article: Perrin, Sivakumar DE LEONA, Jordy NI, Edouard H, Flor KJ, Trey C, Praveena MG, Nakvivi CH, Terry C. Prunes preserve hip bone mineral density in a 12-month randomized controlled trial in postmenopausal women: the Prune Study. Am J Clin Nutr. 2021Aug 21;116(4):897-910. doi: 10.1093/ajcn/ylyx185. PMID: 34852205. -Benefit to bone density and inflammation: Hebert WYMAN, Perrin, Glory HL, Sivakumar DE LEONA, Trey CJ. The Role of Prunes in Modulating Inflammatory Pathways to Improve Bone Health in Postmenopausal Women. Adv Nutr. 2021Aug 17;13(5):2950-9283. doi: 10.1093/advances/qsij033. PMID: 56382064; PMCID: [id number]. - Information on Vitamin K2: more recently [...] with the exception of Natto (a traditional [place] food made from fermented soybeans) has high [...] of these foods, please consult with your Gas Line Servicer or Physician first. Review of Osteoporosis medications [...] femur. You can read more at these [facility] web links: [email or web address].[facility]/health/ treatments/81387-buvqdcqzlfpwpmb For Fosamax/alendronate: https://.[facility]/health/ drugs/20014-haoaetahcue-ldmzarn For Actonel/risedronate: https://Embrace+.[facility]/health/ drugs/54125-dskipuyexrs-wcdh-somzofbLk r Reclast/zoledronic acid: https://Embrace+.[facility]/health/ drugs/73708-xpibtvlxcj-sxoj-fpuuprsyc- lerytg-gmullqa-cykzvrzvbtia -Subcutaneous Prolia: this is one injection every 6 months, given by the nurse in the office. This medication is given buttermaker, indefinitely. Prolia should not be discontinued without [...] looked into transition therapy. Recent study from [facility] Slim et al, 04/11/2020 (PMID: [id number].The study is ongoing, clinicaltrials.gov; [id number]), reported one infusion of IV Reclast did [...] femur. You can read more at these [facility] web links: https://my.sierravilleDreamerz Foods.org/health/ drugs/35435-ukztkhzbo-tttimxxgw Medications that build bone density and prevent [...] etc... You can read more at these [facility] web links: For Forteo/teriparatide: https://my.iiMonde.org/health/ drugs/54519-msfrmboopvis-rhropbwxw For Tymlos/abaloparatide: https://Embrace+.iiMonde.org/health/ drugs/97549-zbxcqwpoeskhl-zfyvbbnks Medication that both prevents bone loss and [...] initiated in patients who have had an RI or stroke in the preceding year or those considered high risk. We may need a clearance from a Plunger Scoop Operator prior to proceeding with this medication in patients who have a cardiovascular disease history. This is only prescribed for 1 year and then needs to be followed by anti-resorptive therapy, according to recommendations. You can read more at these [facility] web links: For Evenity/romosozumab: https://my.[facility].org/health/ drugs/13292-izsyltkgjex-sqhknerpd Other less potent Osteoporosis medications, such as [...] available medications were provided: Link to the [place] [employer] website at: https://www.rheumatology.org/I-Am-A/Ernesto greennt-Caregiver/Diseases-Conditions/Os teoporosis Link to the [facility] web link at: On Osteoporosis: https://my.[facility].org/health/ diseases/4443-osteoporosis On Osteopenia: https://my.[facility].org/health/ diseases/73691-zworvyfmfu - Additional information on Bone Health and [...] Osteoporosis Foundation) http://www.osteo.org/osteolinks.asp National Institutes of Health: 8-607-213-BONE The Calcium Information Center: Non-Dairy, Plant based Milk, can contain in1 glass up to 450 mg of calcium (300 to 450 mg) Exampled include Oat Milk, Flax Milk, Clifford Milk, Cashew Milk, Soy Milk, Peas Milk Examples of Food Sources of Calcium from NIH Food Milligrams (mg) per serving Percent DV* Soymilk, calcium-fortified, 8 ounces 299 30 Ely juice, calcium-fortified, 6 ounces 261 26 Tofu, firm, made with calcium sulfate, cup* 253 25 Tofu, soft, made with calcium sulfate, cup* 138 14 Cuddi-lg-lzf cereal, calcium-fortified, 1 cup 100-1,000 10-100 Turnip greens, fresh, boiled, cup 99 10 Kale, raw, chopped, 1 cup 100 10 Kale, fresh, cooked, 1 cup 94 9 [place] Islander cabbage, bok marin, raw, shredded, 1 cup 74 7 Bread, white, 1 slice 73 7 Tortilla, corn, jveoe-dw-upjc/marshall, one 6 diameter 46 5 Tortilla, flour, iqfji-yf-kgnz/marshall, one 6 diameter 32 3 Bread, whole-wheat, [...] daily with a meal; Certain patients require 2063-9084 international units daily and in patients deficient [...] bones. Studies show approximately 50% of [place] men and women are vitamin D deficient [...] of falling. Additional Information is available from: [facility] Osteoporosis Information: https://.[facility].org/departm ents/orthopaedics-rheumatology/depts/o steoporosis-metabolic The Bone Health and Osteoporosis Foundation (formerly the National Osteoporosis Foundation) : https://www.bonehealthandosteoporosis. org International Osteoporosis Foundation: https://www.osteoporosis.foundation http://ods.od.nih.gov/factsheets/vitam ind.asp National Institutes of Health: 8-181-988-BONE The Calcium Information Keyport: I recommend following a healthy lifestyle. You [...] that features the Whole Plant Based diet, [place] over knives (see video online and visit website). Another movie that was recently released is: Eating You Alive (you can find it at Troppin) and The [employer] Change[employer]gen[employer] movie Dr. Fauzia Ansari is a [facility] physician who has done research and published books, is an expert in Whole Plant based diet for prevention and reversal of heart disease. His website is Endoluminal Sciences. His research highlights the benefits of the Whole food plant based diet in reversing and preventing heart disease. Mrs. Cookie Ansari (his ) has a cookbook with many recipes on whole plant based food: The Prevent and Reverse Heart Disease cookbook. Cookie and Yamile Leongjuditnickie have a cooking show on YouTube called: Plant-Based with Yamile Coty and Cookie Coty. You can also consider reading his son, Eze Ansari's book: The Engine 2 cookbook Eze is a retired director of social services who has helped many people get healthier [...] multiple free videos and YouTube, for example: https://youtu.be/xeeHduxO5b7 , https://youtu.be/ObQZVaang6h He has written multiple books, including Power Symvato for the Brain, The Cheese Trap, Dr. Rock Velazco's Program for Reversing Diabetes, Your Body in Balance You can also watch YouTube channel : The Doc & Central Supply Manager Dr. Anthony Carlson has shown the benefit of a starch based whole food plant based diet to his Rheumatoid Arthritis patients, as well as patient with diabetes II, hypertension, obesity, multiple sclerosis, heart disease, acne, and other, his website: www.debra.Thrupoint Dr. Yayo Allred is a renowned senior formulation scientist, who has studied and researched the benefits of the Whole plant based diet. He has also researched the adverse effects of animal proteins on health. He presents many of his research findings in his book The Gunpowder study. Dr. Gerber Becker has completed many research trials proving the reversal of diseases, such as heart disease and early prostate cancer, with healthy lifestyle and the Whole Plant based diet. Dr. Gerber Becker website is: www.carmenInviteDEV.Thrupoint His new book: Undo It, has evidence based information and guide to following this healthy lifestyle. Dr. Cody Dillon has dedicated a website and additional time to reviewing all food related articles and research and presents them in his power point presentation and on his website at: nutritionfacts.org which is all free. Dr. Dillon has multiple free videos and YouTube, for example https://youEyeviewu.be/aSgNkhgVtks and https://FlyData.be/lXXXygDRyBU. He has written multiple books including: How Not To and How Not To Diet He is now working on his next book: How Not To Age Dr. Danitza Dash (from the [facility]), has articles on the following website: Spl[employer].Thrupoint For additional ideas on recipes, you could find additional information on practical to follow recipes by reading or watching online and YouTube such as: Chef BELLE, Cooking With Plants, The Vegan Corner (recipes from an Eritrean Central Supply Manager), The Whole Foods Plant Based Cooking Show and visiting the provided websites for additional information on the whole plant based benefit and cooking recipes. You can also consider watching the vlogs of some of the plant based Athletes such as Fausto wEing Derek on Encore HQ. You can find very good recipes for [...] Dr. Jenny Degroot Lifestyle Medicine (is a Plunger Scoop Operator and Lifestyle Medicine Physician) -Sometimes it helps to start with a simple diet of potatoes, that Dr. Carlson calls Yarelis Mini. You can learn more about that in his website: www.Brille24 This is the website for Yarelis Butler pdf : https://www.Brille24/wp-content /uploads//Georgiana-Carrie_Website_Pr int_Version-1.pdf You can also read more on Dr. Carlson's website - When you goal is to lose weight, it is important to listen to your hunger cues. Don't eat until you are stuffed. As soon as you feel you are no longer hungry, stop eating. There is a [place] saying that says Tammie Vega, meaning eat until you are 80% full. I say avoid eating past 80% of your stomach fullness. This originated from the city [facility], which is one of the sites reported in the Blue Nanosys book, one of the highest cities in the world for having the most centenarians. Remember your stomach needs space and capacity for proper digestion of your food. Like a food taster or a wiper blender, they have a limit for proper function, and should not be filled to the top. You can read more about that from the [facility] article Don t Eat Until You re Full ? Instead, Mind Your Tammie Vega Point , at https://health.[facility].org/don r-xhw-ovjji-hfgin-ywla-nmpzvyv-mind-yo lv-vmen-akqat-salvador-point/ Most plants contain proteins and all essential [...] also important to ensure they are 3rd republican tested to avoid contaminants. You can track [...] you will need to consult with a precision aircraft systems assembler to have further evaluation to exclude Celiac [...] - Gentle Yoga Anyone Can Do Anywhere www.SecureNet.Thrupoint/yoga Also on youtube: yoga with Karlie For women, especially after menopause, strength training is important. You can read more on that from Clare Morley, PhD at her website https://www.FreshDigitalGroup and YouTube videos. If you are a beginner, it is best to start with a physical therapist or personal development educator. There are also several Aps that offer virtual personal training 3- Good Sleep (poor sleep impacts everything, recommended sleep is 7 to 8 hrs. a night). Certain people may need more sleep, depending on their age and other conditions. Meditation and relaxation techniques have shown to help with improving sleep. Try to be consistent with your sleep. You can find more at the [facility] Website on : https://Embrace+.sierravilleDreamerz Foods.org/Cocrystal Discoverym ents/wellness/store/go-well#sleep-tab 4- Stress management, be happy, laugh [...] Calm Insight Timer Meditation Stress Free Now ([facility]). You can find more resources at the [facility] website at : https://AirTouch Communicationsthe jewish hospitalNextVR.org/departBurst Media ents/wellness/store/go-well#stress-iron e-tab There are many free youtube videos on guided meditation as well For Breathing techniques: You can watch John Carlisle and learn the breathing technique and its benefits by watching the following YouTube: https://OutSmart Power Systemsu.be/1Au3F-VGe96?si=-Xtdfr 4UpsJOUbDU. Learning about your awareness/spiritual being, is [...] work with a psychotherapist or behavioral health men's basketball coach. When having a psychiatric condition, it [...] or a higher dose. Raw: Garlic, Cilantro, Adams nuts, Pumpkin seeds, Alleghany seeds and Flax seed powder have been reported to help with certain metal detoxification such as mercury. Farnsworth-3 plant based rich foods are good anti-inflammatory [...] the Whole Plant Based Diet, by watching [place] over KnMetranome movie and then review website. There are many other resources and educational information on the Whole plant based diet on the Internet and documentaries. There are other resources for wellness that you can also benefit from, such as the [facility] Wellness website, the [facility].org and includes Plant based and Mediterranean diet, yoga and meditation. Please avoid all dairy products. You could use non-dairy milk such as Flax milk, Cashew milk, Clifford milk, Rice milk, Oat milk or Hemp [...] below, just add the ingredients to your wiper blender and blend: - Probably the healthiest smoothie is one that contains mostly green leafy vegetables (especially containing kale), some berries, flax seed and water. This might not router setter to be sweet. You can add one or two pitted dates or a frozen banana for natural sweetness. Examples of healthy green smoothies, pack your wiper blender (at least half way to 3/4) with a mix of green leafy veggies, then top your wiper blender with fruits (such as banana or [...] risk for kidney stones. The same with st helenian chards and beet leaves. If you don't [...] of your health and wellbeing. At the [facility], we work as a team for your care, along with Nurse Practitioners, Physician Assistants, Nurses and Medical Assistants. It is a privilege and honor to serve you. Thank you for choosing The [facility] for your healthcare. Sincerely, Darrian Dubon MD documented in this encounter [facility] 06-06-2025 Note HNO ID: [id number] Author: DARRIAN DUBON MD Service: ? Author Type: Physician Type: Progress Notes Filed: 06/07/2025 15:19 Note Text: FOLLOW UP VISIT Patient's Name: Jam Erwin [facility] [id number] PCP: Jose L Lackey MD [address] [place] [address] Consult Requested by: Jose L Lackey MD [address] [facility] [address] Other physicians: Cloth Measurer Machine prev. Nel Lebron MD (his prev. precision aircraft systems assembler left- Ronald Brown MD) ; Now following with Dr. Luis Antonio García Accompanied by: self Interim history: is here for f/u RA and OP Recording using Wowza Media Systems software for draft documentation of the visit was discussed with the patient/authorized signs sales representative; all questions welcomed and answered. Patient/authorized signs sales representative agreed to proceed Reports doing fine today, but this would be his last apt. 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 He has also been seeking local six pack packer closer to home for him. This is [...] He is still undergoing evaluation by his precision aircraft systems assembler for his IBD disease activity. He has been on Entyvio. [facility] he has gastrointestinal evaluation by his precision aircraft systems assembler and states - Undergoing capsule endoscopy tomorrow to evaluate small intestine for potential tumors or bleeding. - Recent colonoscopy showed small benign tumors. States told his tumors were benign But still needs the camera States because he is bleeding and requiring His PCP and Cloth Measurer Machine are addressing his anemia and further evaluating He had iron infusion 05/26/2025 States he is on potassium and iron infusion by his Primary care physician States his Primary care physician started him on 4 tbs/wk and is comfortable with that He continues on the sulfasalazine, and states his precision aircraft systems assembler prescribes it, as well as the Entyvio. No interim fractures Continues on vitamin D I reviewed results with patient 02/14/2025 Mr. Toscano is a very nice 59 y.o. gentleman here for f/u visit for Rheumatoid Arthritis and Osteoporosis He follows with IBD, UC, on Entyvio and sulfasalazine; [facility] had liver US and fibroscan, told no fatty liver He is no longer on anti-TNF therapy. States his PCP is treating his anemia with iron, was on supplement and switched to IV. He is not aware of bleeding, denies BRBPR and denies melena. He follows with Cloth Measurer Machine for his UC. [facility] has scopes this summer by his precision aircraft systems assembler. He is following with Orthopedics for his osteoarthroses and non-inflammatory joint pains. He has a chronic rotator cuff tear and extensive bilateral glenohumeral degenerat (more content not included)... [facility] 06-06-2025 History of Present illness Narrative Images from the original note were not included. FOLLOW UP VISIT Patient's Name: Jam Torres Rip Linda [facility] [id number] PCP: Jose L Lackey MD [address] [place] [id number] Consult Requested by: Jose L Lackey MD [address] [place] [id number] Other physicians: Cloth Measurer Machine prev. Nel Lebron MD (his prev. precision aircraft systems assembler left- Ronald Brown MD) ; Now following with Dr. Luis Antonio García Accompanied by: self Interim history: is here for f/u RA and OP Recording using ambient Logoworks software for draft documentation of the visit was discussed with the patient/authorized signs sales representative; all questions welcomed and answered. Patient/authorized signs sales representative agreed to proceed Reports doing fine today, but this would be his last apt. 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 He has also been seeking local six pack packer closer to home for him. This is [...] my God I can move again , [facility] does not feel needs to go any [...] He is still undergoing evaluation by his precision aircraft systems assembler for his IBD disease activity. He has been on Entyvio. [facility] he has gastrointestinal evaluation by his precision aircraft systems assembler and states - Undergoing capsule endoscopy tomorrow to evaluate small intestine for potential tumors or bleeding. - Recent colonoscopy showed small benign tumors. [facility] told his tumors were benign But still needs the camera [facility] because he is bleeding and requiring His PCP and Cloth Measurer Machine are addressing his anemia and further evaluating He had iron infusion 05/26/2025 States he is on potassium and iron infusion by his Primary care physician States his Primary care physician started him on 4 tbs/wk and is comfortable with that He continues on the sulfasalazine, and states his precision aircraft systems assembler prescribes it, as well as the Entyvio. No interim fractures Continues on vitamin D I reviewed results with patient 02/14/2025 Mr. Toscano is a very nice 59 y.o. gentleman here for f/u visit for Rheumatoid Arthritis and Osteoporosis He follows with IBD, UC, on Entyvio and sulfasalazine; [facility] had liver US and fibroscan, told no fatty liver He is no longer on anti-TNF therapy. States his PCP is treating his anemia with iron, was on supplement and switched to IV. He is not aware of bleeding, denies BRBPR and denies melena. He follows with Cloth Measurer Machine for his UC. [facility] has scopes this summer by his precision aircraft systems assembler. He is following with Orthopedics for his osteoarthroses and non-inflammatory joint pains. He has a chronic rotator cuff tear and extensive bilateral glenohumeral degenerative disease. His s/p b/l TKR and rt THR. Hissed rate was elevated at 79 04/2024 at time of his pneumonia. He continues on sulfasalazine and Entyvio by his precision aircraft systems assembler. He does not describe RA related symptoms No jt pains or swelling outside of the LLE from TKR Denies rheum nodules No stiffness He is on sulfasalazine per precision aircraft systems assembler for his UC and this has been controlling his RA He is pleased with his treatment regimen He also states that his IBD is well controlled, states told is in remission, on Entyvio Doing exercise and working with personal development educator at the gym and will be going [...] in IBD and is following with local precision aircraft systems assembler for that. Has been on Humira since Sep 2020 (started with 80 mg loading dose and since has been on 40 mg every 2 wks) He was pleased with Enbrel response to his RA and later was switched to Humira, reports has similar benefit and is pleased with response. 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 Reports still gets 8 BM's a day, does not have BM at night, does not have to wake up from sleep. Has been following with his precision aircraft systems assembler for his UC Had colonoscopy 11/22/2021 with reported marked improvement in asc/transv/desc colon and severe active in rectum, histopath with active colitis with erosions. States Dr. Lebron has started him on rectal enemas. Recent colonoscopy with reported active colitis. He tells me that he continues to have multiple BM's; His precision aircraft systems assembler prescribed pred. course, completed recently. No jt [...] us, he is on Humira per his Cloth Measurer Machine He is off Enbrel, was switched to Humira by his precision aircraft systems assembler. (previously was on Enbrel 25 mg twice a wk and has been in remission since on Enbrel and very pleased with his treatment regimen) He is on Humira 40 mg every 2 wks by his Cloth Measurer Machine He is on sulfasalazine, Humira and mesalamine enemas per his precision aircraft systems assembler I have reviewed benefits of a whole food plant based diet He consumes dairy, cheese, sausage, hamburger. I have advised him on avoiding meats and dairy and reviewed reports and patient experience with flare of IBD and RA, as well as gastrointestinal dysbiosis. I advised him on a whole foods plant based diet. He has a wiper blender (FastCustomer) and interested in making healthy smoothies and [...] in this patient with known rheumatoid arthritis. Topline Beading Machine Tender: CODY Transcribe Date/Time: Feb 20 2021 9:52A [...] site where has fallen arch. Has seen Fast Food Crew Lead in the remote past for the fallen arch, not recently. Feels gets stiff when not moving as much. Denies any injury or trauma. Denies any pain to me today States his precision aircraft systems assembler has prescribed prednisone course due to IBD flare States after scope was told is flared. He is on sulfasalazine and budesonide and his precision aircraft systems assembler and since has switched him from Enbrel [...] Alk phos isoenz: liver fraction; followed by precision aircraft systems assembler He follows with his precision aircraft systems assembler for hi elev alk phos and AST and for bld with stools, Dr Brown: and states he started him on iron supplement States Dr. Brown prescribed metronidazole, for reported diarrhea. States felt it made a difference. States he gave him enemas and told that is for his ulcerative colitis and prescr. sulfasalazine. In 2019, has also followed with his precision aircraft systems assembler for blood with stools, and had flex sig and told he was inflamed from his Ulcerative colitis. [facility] had colonosc and EGD in 2018 [...] systems reviewed and are negative DXA Model: LinPrim W [id number] SITE SCANNED: Lumbar spine and left hip [...] were all normal. He follows with his precision aircraft systems assembler for his ulcerative colitis and is on sulfasalazine. He was told by his precision aircraft systems assembler to avoid sun exposure due to this med, had skin itching last summer. He had evaluation for elevated AST and alk phos. Alk phos has improved and AST has been borderline elevated. I have advised him to f/u with his precision aircraft systems assembler for his elevated alk phos (liver fraction) States his precision aircraft systems assembler did an US of his liver twice and was told was normal. He denies any alcohol consumption or acetaminophens. His isoenzyme indicated predom. of liver origin. The patient reports that his precision aircraft systems assembler completed evaluation and told his liver is fine. His liver US was unremarkable . His anemia has resolved since his UC has been controlled. States saw his precision aircraft systems assembler, Dr. Lebron, recently and states told him [...] and denies hematuria or dysuria. DXA Model: LinPrim W [id number] SITE SCANNED: Lumbar spine and left hip [...] states not bad . has seen a six pack packer in the past, in [place], Dr. Whitfield. States used to be on [...] 500mg q 6hrs. 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 Lackey Smoking: quit [...] Abs Lymph 1.00 - 4.00 k/uL 3.02 Parke% 9.7 Abs Parke 0.00 - 0.86 k/uL 0.79 Eosin% 0.0 [...] Negative Negative Ketones, Urine Negative Negative Specific [place], Ur 1.005 - 1.030 1.008 Hemoglobin/Blood,Ur Negative 3+ (A) pH, Urine 4.5 - 8.0 6.0 Protein, Urine Negative mg/dL Negative Urobilinogen Normal Normal Nitrites Negative Negative Leukest Negative Negative Comments SEE COMMENT Urine Adan Comment SEE COMMENT WBC, Urine 0 - 5 /HPF 0-5 RBC, Urine 0 - 3 /HPF >25 (A) Sm Antibody <1.0 AI <0.2 AUDIOLOGIST Antibody <1.0 AI 1.2 (H) SSA Antibody <1.0 AI <0.2 SSB Antibody <1.0 AI <0.2 Centromere Ab <1.0 AI <0.2 Scleroderma Ab, IgG <1.0 AI <0.2 Milagro 1 Antibody <1.0 AI <0.2 Ribosomal AUDIOLOGIST <1.0 AI <0.2 Chromatin Antibody <1.0 AI [...] <12 Sm Antibody <1.0 AI <0.2 Ribosomal AUDIOLOGIST <1.0 AI <0.2 Chromatin Antibody <1.0 AI <0.2 SSA Antibody <1.0 AI <0.2 SSB Antibody <1.0 AI <0.2 AUDIOLOGIST Antibody <1.0 AI 1.2 Scleroderma Ab, IgG [...] FINDINGS CONSISTENT WITH CHRONIC SEVERE RHEUMATOID ARTHRITIS. Topline Beading Machine Tender: [facility] Transcribe Date/Time: Aug 29 2015 12:56P ... Last XR Ankle - Impression Only XR ANKLE GENERAL 3V AP/LAT/OBL LT Exam End: 02/20/2021 8:42 AM (Final result) Impression: IMPRESSION: Arthritic changes demonstrating interval progression in this patient with known rheumatoid arthritis. Topline Beading Machine Tender[facility] Transcribe Date/Time: Feb 20 2021 9:52A [...] Ta Finn M.D.01/23/2025 9:09 PM Dictation Location: [place] Electronically authenticated by: [id number] Y Date: 01/23/2025 21:09 Dictated By: Ta [...] developed and its performance characteristics determined by [facility] Rajeev Rouse [facility] [place] (-[facility]). It has not been cleared or approved by the FDA. [facility] is regulated under CLIA as qualified to [...] 147 53 - 334 mg/dL Final MPA Wayne, Serum Date Value Ref Range Status 08/19/2018 1,020 534 - 1,267 mg/dL Final MPA Lambda, Serum Date Value Ref Range Status 08/19/2018 551 253 - 653 mg/dL Final MPA Wayne/Lambda Ratio Date Value Ref Range Status 08/19/2018 [...] in patient's severe chronic Rheumatoid Arthritis. His precision aircraft systems assembler has switched him to Humira as he [...] methotrexate well, continues on sulfasalazine by his precision aircraft systems assembler He is also on Entyvio by his precision aircraft systems assembler. -Osteoporosis DXA August 19, 2018 Lowest T-score [...] to receive intermittent steroid therapy from his precision aircraft systems assembler. Pharmacologic therapy is still indicated and recommended, [...] RA included in the risk factors. With group home systemic steroids FRAX scores would be higher). [...] Also receives labs per Primary care physician/ Cloth Measurer Machine Reviewed his labs Advised on phosph. rich diet -The patient's precision aircraft systems assembler follows him for his UC, anemia and liver tests. He is on Entyvio and sulfasalazine per his Cloth Measurer Machine RA DMARD therapy: patient would like to [...] DMARDs needs to be adjusted to avoid group home use of nsaids and their risk factors and adverse effect. With escalation of treatment for his RA, options include either methotrexate dose increase if labs allow and well tolerated, or he may need to resume his anti-TNF medication (either Enbrel or Humira). With being on methotrexate, folate supplement is recommended. Reports taking folate He is on sulfasalazine per his precision aircraft systems assembler and Entyvio for his IBD (He was prev. on Enbrel 25 mg sq twice a week, or may switch to Humira if his precision aircraft systems assembler switched him to Humira TNF inhibitor therapy, [...] on sulfasalazine for his IBD per his precision aircraft systems assembler RE OP med: Received Reclast infusion, 5 [...] disease. Osteoporosis was likely due to previous buttermaker steroid therapy by other physicians over the [...] atypical and subtroch. fracture of femur with group home use of bisphosphonates/alendronate and anti-resorptive agents, there [...] wished to proceed. Previous orders -CONSULT TO STRATEGIC CONSULTANT -CONSULT TO PODIATRY Provided referral to OT for assistive devices, exercises to preserve left function Referral to control engineer for foot/ankle deformities and callus care, inserts/braces/orthotics, [...] which included preparing to see the patient, [id number] patient care, completing clinical documentation, obtaining and/or [...] If he is able to find another six pack packer closer to home or or if Dr. [...] multiple rheumatologists in this practice here at [place] who are also able to follow him, [...] is continuing his care with his local precision aircraft systems assembler. Please see above discussion on recommendations. He will need regular labs for methotrexate and sulfasalazine monitoring. He will need a recheck CRP to ensure has improved Infection precautions are recommended while on immunosuppressive therapy (IMT) Folic acid/folate supplement is recommended while on methotrexate -He relayed you are managing his anemia and his precision aircraft systems assembler is completing further evaluation. -His phosphorous was [...] longer prior and after. Please refer to [employer] Guidelines for up to [...] appropriate immunization recommended. -Continued follow up with precision aircraft systems assembler for IBD management and monitoring for liver disease, as they deem necessary Thank you for allowing me to participate in the care of your patient. Darrian Fischer MD Jose L Lackey MD [address] [place], [place] [address] We reassured patient that we have been sending letters and copy of my visit note after each of his office visits. They have been faxed to his Primary care physician office Today, I have also asked my medical lab technician to mail this visit note and letter to his Primary care physician office mailing address. Medical Decision Making: Problems: Moderate: 2+ stable chronic illnesses Data: Unique source(s) for external note(s) reviewed: 3+ Unique test result(s) reviewed: 3+ Discussed management or test w/ external physician/QHCP/source Medical Decision Making Level: 4 - Moderate documented in this encounter [facility] 06-06-2025 History of Present illness Narrative Radiology [...] PATIENT PRESENTS WITH AN IMPLANTABLE OR ATTACHED DENTAL TECHNOLOGY ADVISOR: No RADIOLOGY DEPARTMENT: Bone Density PERIPHERAL IV DATA: Not applicable SIGNED BY: RT Humza(Andrez) June 06, 2025 8:12 AM documented in this encounter [facility] 06-06-2025 Note HNO ID: [id number] Author: BLAYNE DENIS RT (R) Service: ? Author Type: Technologist Type: Progress [...] PATIENT PRESENTS WITH AN IMPLANTABLE OR ATTACHED DENTAL TECHNOLOGY ADVISOR: No RADIOLOGY DEPARTMENT: Bone Density PERIPHERAL IV DATA: Not applicable SIGNED BY: RT Humza(Andrez) June 06, 2025 8:12 AM [facility] 05-31-2025 Note Nurse Consultation N ote Assessment/Plan [...] Recorded hepatitis A-hepatitis B vaccine 05/03/2015 Recorded [facility] 05-11-2025 Note Progress Note-Physic sumaya Patient: JAM TOSCANO Age: 60 years Sex: Male : 1965 Associated Diagnoses: None Author: Kody Ramos Jr., DO Postoperative Information Postoperative disposition: Postoperative disposition: Home. Optimetrix number: Optimetrix number [id number]. Anesthetic utilized: General. Physical Examination Vital Signs [...] Ambulatory Surgery Unit, and To home ). [facility] Comment on above: Result Comment: [...] activities are safe for you. ??? Take oxer-guh-pnhbypq and prescription medicines only as told by [...] provider. Document Revised: 02/11/2023 Document Reviewed: 02/11/2023 [employer] Patient Education ? 2023 [employer] Peptic Ulcer A peptic ulcer is [...] Helicobacter pylori or (more content not included)... [facility] 05-11-2025 Note Endoscopic Procedure Report - Other Patient: JAM TOSCANO Age: 60 years Sex: Male : 1965 Associated Diagnoses: None Author: Luis Antonio García MD Pre-Procedure Procedure Date 05/11/2025 09:39:00 . Procedure Type: Colonoscopy with removal of tumor(s), polyp(s), or other lesion(s) by snare technique, biopsy. Procedure provider Performed by Luis Antonio García MD. Current history and physical Documented on chart. Colonoscopy ([id number]) on 06/03/2024 at 59 Years. Esophagogastroduodenoscopy (239742460) on 06/03/2024 at 59 Years. Colonoscopy ([id number]) on 02/26/2024 at 58 Years. Colonoscopy ([id number]) on 03/23/2023 at 57 Years. Cystoscopy ([id number]) on 02/04/2021 at 55 Years. Colonoscopy (067093519). right hip replacement (094745767). replacement on both knees (869473525).. Past Medical History Resolved Extreme obesity ([id number]) : Resolved. Ulcerative colitis (016162027): Resolved.. Family History Asthma Mother Hypertension Mother Heart disease Mother Arthritis Brother Stroke Father High cholesterol Mother . Procedure History Colonoscopy ([id number]) on 06/03/2024 at 59 Years. Esophagogastroduodenoscopy (300940348) on 06/03/2024 at 59 Years. Colonoscopy ([id number]) on 02/26/2024 at 58 Years. Colonoscopy ([id number]) on 03/23/2023 at 57 Years. Cystoscopy ([id number]) on 02/04/2021 at 55 Years. Colonoscopy (930039824). right hip replacement (403228135). replacement on both knees (419720000).. Colorectal neoplasm risk assessment High risk UC. [...] terminal ileum Images Procedure images: Rec1_hd_video_2024__T08_51_19_042. jpg Rec1_hd_video__T08_51_13_133. jpg Rec1_hd_video__T08_49_40_945. jpg Rec1_hd_video_2024__T08_49_38_294. jpg Rec1_hd_video__T08_49_18_184. jpg Rec1_hd_video__T08_48_29_082. jpg Rec1_hd_video__T08_46_41_422. jpg Rec1_hd_video__T08_46_34_729. jpg (more content not included)... [facility] Comment on above: Result Comment: Elec tronically Signed By: Ricky ROBLERO, Luis Antonio Tiwari\.br\Date and Time Signed: 05/11/25 09:42 EDT Other Comment: Sheila trinh Attachment - attachment storage system not supported [id number] Can be viewed in source system Missing Attachment - attachment storage system not supported [id number] Can be viewed in source system Missing Attachment - attachment storage system not supported 4717635 Can be viewed in source system Missing Attachment - attachment storage system not supported 5278651 Can be viewed in source system Missing Attachment - attachment storage system not supported 6187316 Can be viewed in source system Missing Attachment - attachment storage system not supported 0748776 Can be viewed in source system Missing Attachment - attachment storage system not supported 5100779 Can be viewed in source system Missing Attachment - attachment storage system not supported 5716157 Can be viewed in source system Missing Attachment - attachment storage system not supported 1709802 Can be viewed in source system Missing Attachment - attachment storage system not supported 2106385 Can be viewed in source system Missing Attachment - attachment storage system not supported 3165697 Can be viewed in source system Missing Attachment - attachment storage system not supported 3825156 Can be viewed in source system Missing Attachment - attachment storage system not supported 3425425 Can be viewed in source system Missing Attachment - attachment storage system not supported 7468021 Can be viewed in source system Missing Attachment - attachment storage system not supported 9836279 Can be viewed in source system Missing Attachment - attachment storage system not supported 4295872 Can be viewed in source system Missing Attachment - attachment storage system not supported 5215295 Can be viewed in source system Missing Attachment - attachment storage system not supported 5165035 Can be viewed in source system Missing Attachment - attachment storage system not supported 0786708 Can be viewed in source system Missing Attachment - attachment storage system not supported 8041769 Can be viewed in source system Missing Attachment - attachment storage system not supported 2829684 Can be viewed in source system Missing Attachment - attachment storage system not supported 5881321 Can be viewed in source system Missing Attachment - attachment storage system not supported 4898631 Can be viewed in source system Missing Attachment - attachment storage system not supported 4799522 Can be viewed in source system Missing Attachment - attachment storage system not supported 9708183 Can be viewed in source system Missing Attachment - attachment storage system not supported 8383987 Can be viewed in source system Missing Attachment - attachment storage system not supported 6230730 Can be viewed in source system Missing Attachment - attachment storage system not supported 4365842 Can be viewed in source system Missing Attachment - attachment storage system not supported 1364979 Can be viewed in source system Missing Attachment - attachment storage system not supported 1839138 Can be viewed in source system Missing Attachment - attachment storage system not supported 3215200 Can be viewed in source system Missing Attachment - attachment storage system not supported 0621007 Can be viewed in source system Missing Attachment - attachment storage system not supported 9107540 Can be viewed in source system Missing Attachment - attachment storage system not supported 9794635 Can be viewed in source system Missing Attachment - attachment storage system not supported [id number] Can be viewed in source system 05-11-2025 [...] 3. Normal examined duodenum Images Procedure images: Rec1_hd_video_2024__26T08_21_56_057. jpg Rec1_hd_video_2024__T08_21_57_831. jpg Rec1_hd_video_2024__T08_21_48_458. jpg Rec1_hd_video_2024__T08_21_07_359. jpg Rec1_hd_video_2024__26T08_21_01_838. jpg Rec1_hd_video_2024__26T08_20_50_569. jpg Rec1_hd_video_2024__26T08_20_40_359. jpg Rec1_hd_video_2024__26T08_20_37_996. jpg Rec1_hd_video_2024__26T08_20_33_227. jpg Rec1_hd_video_2024__26T08_20_20_439. jpg Rec1_hd_video_2024__26T08_20_03_318. jpg . Post-Procedure [...] in GI clinic in 1-2 after discharge [facility] Comment on above: Result Comment: Elec tronically Signed By: Ricky ROBLERO, Luis Antonio Tiwari\.br\Date and Time Signed: 05/11/25 09:10 EDT Other Comment: Sheila trinh Attachment - attachment storage system not supported [id number] Can be viewed in source system Missing Attachment - attachment storage system not supported 6884400 Can be viewed in source system Missing Attachment - attachment storage system not supported 8449122 Can be viewed in source system Missing Attachment - attachment storage system not supported 8856025 Can be viewed in source system Missing Attachment - attachment storage system not supported 7095781 Can be viewed in source system Missing Attachment - attachment storage system not supported 3639061 Can be viewed in source system Missing Attachment - attachment storage system not supported 5416147 Can be viewed in source system Missing Attachment - attachment storage system not supported 4080970 Can be viewed in source system Missing Attachment - attachment storage system not supported 4764927 Can be viewed in source system Missing Attachment - attachment storage system not supported 2018792 Can be viewed in source system Missing Attachment - attachment storage system not supported 7910224 Can be viewed in source system 05-11-2025 [...] All Problems Food insecurity / SNOMED CT 1515949130 / Possible Problem added automatically by Discern Expert based on clinical documentation Financial problem / SNOMED CT 991570077 / Possible Problem added automatically by Discern Expert based on clinical documentation Unable to afford medication / SNOMED CT 988361131015818 / Possible Problem added automatically by Discern Expert based on clinical documentation Hyperlipemia / SNOMED CT 31688715 / Confirmed Rectal bleed / SNOMED CT 719998871 / Confirmed Heartburn / SNOMED CT 75223429 / Confirmed Ulcerative colitis, universal / SNOMED CT 3317921018 / Confirmed Bladder stone / SNOMED CT 535950987 / Confirmed BPH with urinary obstruction / SNOMED CT 7564534785 / Confirmed Incomplete bladder emptying / SNOMED CT 183912633 / Confirmed Gross hematuria / SNOMED CT 190197862 / Confirmed Kidney stones / SNOMED CT 692221965 / Confirmed Bladder mass / SNOMED CT 6739361217 / Confirmed Urethral stone / SNOMED CT 75551035 / Confirmed Prostate calculus / SNOMED CT 439082399 / Confirmed Continuous severe abdominal pain / SNOMED CT 33033659 / Confirmed Hematochezia / SNOMED CT 9792769728 / Confirmed Acute diarrhea / SNOMED CT 0877125959 / Confirmed [place] ulcerative colitis / SNOMED CT 2186672965 / Confirmed Adenomatous colon polyp / SNOMED CT 8023949424 / Confirmed History of colon polyps / SNOMED CT 8275378828 / Confirmed Elevated alkaline phosphatase level / SNOMED CT 3400320322 / Confirmed Anemia / SNOMED CT 469060314 / Confirmed Arthritis / SNOMED CT 9543849 / Confirmed Multiple renal cysts / SNOMED CT 724280352 / Confirmed Ureteral stone with hydronephrosis / SNOMED CT 9409174156 / Confirmed Screening PSA (prostate specific antigen) / SNOMED CT 789731104 / Confirmed Feeling of incomplete bladder emptying / SNOMED CT 0146695124 / Confirmed Pyuria / SNOMED CT 1523705 / Confirmed Histories Past Medical History: Resolved Extreme obesity ([id number]) : Resolved. Ulcerative colitis (825777847): Resolved. Family History: Brother Arthritis Father Stroke Mother Asthma High cholesterol Hypertension Heart disease Procedure history: Colonoscopy (630488470) on 06/03/2024 at 59 Years. Esophagogastroduodenoscopy (096269318) on 06/03/2024 at 59 Years. Colonoscopy (635274262) on 02/26/2024 at 58 Years. Colonoscopy (830302222) on 03/23/2023 at 57 Years. Cystoscopy (97840947) on 02/04/2021 at 55 Years. Colonoscopy (708202120). right hip replacement (916577519). replacement on both knees (888275950). Social History Social & Psychosocial Habits Alcohol 12/14/2024 Risk Assessment: Denies Alcohol Use 12/14/2024 Use: Never Comment: denies - 01/14/2023 08:52 - Tamiko Garcia I Exercise 12/14/2024 R (more content not included)... [facility] Comment on above: Result Comment: [...] All Problems Acute diarrhea / SNOMED CT 1852011768 / Confirmed Adenomatous colon polyp / SNOMED CT 1401285397 / Confirmed Anemia / SNOMED CT 347376663 / Confirmed Arthritis / SNOMED CT 9157499 / Confirmed Bladder mass / SNOMED CT 9219258672 / Confirmed Bladder stone / SNOMED CT 818253739 / Confirmed BPH with urinary obstruction / SNOMED CT 4449578424 / Confirmed Continuous severe abdominal pain / SNOMED CT 93781048 / Confirmed Elevated alkaline phosphatase level / SNOMED CT 4937570435 / Confirmed Feeling of incomplete bladder emptying / SNOMED CT 7240620259 / Confirmed Financial problem / SNOMED CT 533139821 / Possible Problem added automatically by Discern Expert based on clinical documentation Food insecurity / SNOMED CT 4959990649 / Possible Problem added automatically by Discern Expert based on clinical documentation Gross hematuria / SNOMED CT 408793426 / Confirmed Heartburn / SNOMED CT 60993171 / Confirmed Hematochezia / SNOMED CT 6593832387 / Confirmed History of colon polyps / SNOMED CT 9284205970 / Confirmed Hyperlipemia / SNOMED CT 26365665 / Confirmed Incomplete bladder emptying / SNOMED CT 074860373 / Confirmed Kidney stones / SNOMED CT 656962946 / Confirmed Multiple renal cysts / SNOMED CT 038542431 / Confirmed Prostate calculus / SNOMED CT 754841911 / Confirmed Pyuria / SNOMED CT 8015382 / Confirmed Rectal bleed / SNOMED CT 073990462 / Confirmed Screening PSA (prostate specific antigen) / SNOMED CT 483807729 / Confirmed Ulcerative colitis, universal / SNOMED CT 2201441401 / Confirmed Unable to afford medication / SNOMED CT 298607705430750 / Possible Problem added automatically by Discern Expert based on clinical documentation [place] ulcerative colitis / SNOMED CT 4744369168 / Confirmed Ureteral stone with hydronephrosis / SNOMED CT 5144167418 / Confirmed Urethral stone / SNOMED CT 64458477 / Confirmed Resolved: Extreme obesity / SNOMED CT [id number] Resolved: Ulcerative colitis / SNOMED CT 951369581 Canceled: Ulcerative colitis / SNOMED CT 170709180 Histories Past Medical History: Resolved Extreme obesity ([id number]) : Resolved. Ulcerative colitis (111485569): Resolve (more content not included)... [facility] Comment on above: Result Comment: Elec tronically Signed By: Kody Ramos Jr., DO\.sania\Date and Time Signed: 05/11/25 08:36 EDT 05-03-2025 [...] 05/03/25 XRAY (L) KNEE 05/03/24, 04/21/23 IN EPIC XRAY AP B/L KNEES 06/17/22, 04/01/22, 02/26/21, [...] TODAY, 05/03/25 XRAY (R) KNEE 06/16/23 IN [facility] XRAY (R) KNEE 02/26/21 IN [facility] [...] Use: Not At Risk (01/24/2020) Received from [facility] AUDIT-[facility] Frequency of Alcohol Consumption: Never Average [...] requiring urgent evaluation. documented in this encounter [facility] 03-29-2025 History of Present illness Narrative Images [...] Use: Not At Risk (01/24/2020) Received from [facility] Frequency of Alcohol Consumption: Never Average [...] requiring urgent evaluation. documented in this encounter [facility] 02-14-2025 Instructions Darrian Dubon MD - 02/14/2025 7:41 AM EDT -PLEASE NOTE THAT WE REVIEW ALL YOUR TEST RESULTS AT YOUR NEXT FOLLOW UP VISIT WITH YOU. IF ANY ABNORMAL LAB REQUIRES SOONER ATTENTION, WE WILL CONTACT YOU. -If you have signed up on MyChart, we will release your test results through [employer]. I wish you the best of health [...] track your nutrition and calcium intake on [email or web address] This provides macro and micronutrient intake and requirements. - You can track your calcium intake on Stretch or any other calcium tracker of your [...] youtube and copy and paste this link: [email or web address] This is done by a Physical Medicine and Rehab doctor who is a topology professor in [employer]. She completed a PhD at the [employer]. I hope you find it helpful. Please take precautions and start gradual when starting a new exercise program. Another reference includes this one: -Dominique RM, Peg Desai J, Ne RL, Agustin SF, Judy EW. Exercise for the prevention of osteoporosis in postmenopausal women: an evidence-based guide to the optimal prescription. Thor J Soccer Commentator. 2019 Jan-Feb;23(2):170-180. doi: 10.1016/j.bjpt.2018.11.011. Epub 2017Oct 07. PMID: 43828728; PMCID: SQN8982969. - Stress can lead to bone loss. [...] hazelnuts, legumes, soybeans and other beans) - [place] (potatoes, avocados, almonds, peanuts) - Chromium (broccoli, [...] health? Ther Adv Musculoskelet Dis. 2010;3(6):293-300. doi: 10.1177/8285420I61067594. PMID: 05220888; PMCID: CSC3344029. -SUDHEER Carrillo., NYLA Dodson., GHAZAL Flores. et al. Soy isoflavone intake inhibits bone resorption and stimulates bone formation in menopausal women: meta-analysis of randomized controlled trials. Eur J Clin Nutr 62, 155-161 (2007). https://doi.org/10.1038/sj.ejcn.907340 8 -Clyde Rosa, Trisha Lara, Bar De Leon et al. Isoflavone intervention and its impact on bone mineral density in postmenopausal women: a systematic review and meta-analysis of randomized controlled trials. Osteoporos Int (2022). https://doi.org/10.1007/d94812-655-372 43-y -Jack Finch, Trisha Lara, Clyde Grant et al. Effects of isoflavone interventions on bone mineral density in postmenopausal women: a systematic review and meta-analysis of randomized controlled trials. Osteoporos Int 31, 4208-3233 (2020). https://doi.org/10.1007/t52205-555-891 76-z - Benefits of consuming soy in whole foods are listed in this article at the PCR website: https://www.pcrm.org/good-nutrition/nu trition-information/ypw-zqj-qzqigr - Prunes have been reported to help [...] Am J Clin Nutr. 2021Aug 21;116(4):897-910. doi: 10.1093/ajcn/expt054. PMID: 96420575. -Benefit to bone density and inflammation: Hebert WYMAN, Perrin, Glory SOLARES, Sivakumar ALDANA, Trey CUBA. The Role of Prunes in Modulating Inflammatory Pathways to Improve Bone Health in Postmenopausal Women. Adv Nutr. 2021Aug 17;13(5):6063-5176. doi: 10.1093/advances/hnjl063. PMID: 92454647; PMCID: [id number]. - Information on Vitamin K2: more recently [...] with the exception of Natto (a traditional [place] food made from fermented soybeans) has high [...] of these foods, please consult with your Gas Line Servicer or Physician first. Review of Osteoporosis medications [...] femur. You can read more at these [facility] web links: https://my.[facility]/health/ treatments/83433-svnwcdhyatiaexb For Fosamax/alendronate: https://Embrace+.[facility].org/health/ drugs/73970-fwsfmxoiqep-prrjiei For Actonel/risedronate: https://Embrace+.[facility].org/health/ drugs/98615-qemdkvgkwpj-lwgp-zxhaafgNt r Reclast/zoledronic acid: https://Embrace+.[facility]/health/ drugs/96553-djosicpvoh-zxfs-fegyxnrry- kzpswp-yzwcdyh-zkmuijynxogz -Subcutaneous Prolia: this is one injection every 6 months, given by the nurse in the office. This medication is given buttermaker, indefinitely. Prolia should not be discontinued without [...] looked into transition therapy. Recent study from [facility] Slim et al, 04/11/2020 (PMID: 63150795.The study is ongoing, clinicaltrials.gov; [id number]), reported one infusion of IV Reclast did [...] femur. You can read more at these [facility] web links: https://my.[facility].org/health/ drugs/67358-lqzinyzvl-sthmonhzl Medications that build bone density and prevent [...] etc... You can read more at these [facility] web links: For Forteo/teriparatide: https://my.[facility]Monde.org/health/ drugs/82944-bmnwvfiqlqct-soydnalgt For Tymlos/abaloparatide: https://my.[facility]de.org/health/ drugs/44026-ukhgsacxmtnjq-yhththlig Medication that both prevents bone loss and [...] initiated in patients who have had an RI or stroke in the preceding year or those considered high risk. We may need a clearance from a Plunger Scoop Operator prior to proceeding with this medication in patients who have a cardiovascular disease history. This is only prescribed for 1 year and then needs to be followed by anti-resorptive therapy, according to recommendations. You can read more at these [facility] web links: For Evenity/romosozumab: https://my.[facility].org/health/ drugs/42060-xtwdcjcbkjv-ftsmnmaus Other less potent Osteoporosis medications, such as [...] available medications were provided: Link to the [place] [employer] website at: https://www.rheumatology.org/I-Am-A/Ernesto wyatt-Caregiver/Diseases-Conditions/Os teoporosis Link to the [facility] web link at: On Osteoporosis: https://my.[facility].org/health/ diseases/4443-osteoporosis On Osteopenia: https://my.[facility].org/health/ diseases/72275-vllerxglap - Additional information on Bone Health and [...] Osteoporosis Foundation) http://www.osteo.org/osteolinks.asp National Institutes of Health: 6-246-967-BONE The Calcium Information Center: Non-Dairy, Plant based Milk, can contain in1 glass up to 450 mg of calcium (300 to 450 mg) Exampled include Oat Milk, Flax Milk, Clifford Milk, Cashew Milk, Soy Milk, Peas Milk Examples of Food Sources of Calcium from NIH Food Milligrams (mg) per serving Percent DV* Soymilk, calcium-fortified, 8 ounces 299 30 Ely juice, calcium-fortified, 6 ounces 261 26 Tofu, firm, made with calcium sulfate, cup* 253 25 Tofu, soft, made with calcium sulfate, cup* 138 14 Umutc-jh-ydh cereal, calcium-fortified, 1 cup 100-1,000 10-100 Turnip greens, fresh, boiled, cup 99 10 Kale, raw, chopped, 1 cup 100 10 Kale, fresh, cooked, 1 cup 94 9 [place] Islander cabbage, bok marin, raw, shredded, 1 cup 74 7 Bread, white, 1 slice 73 7 Tortilla, corn, xnhkm-xe-jtlw/marshall, one 6 diameter 46 5 Tortilla, flour, kkydx-ue-lgyj/marshall, one 6 diameter 32 3 Bread, whole-wheat, [...] daily with a meal; Certain patients require 6474-2980 international units daily and in patients deficient [...] bones. Studies show approximately 50% of [place] men and women are vitamin D deficient [...] of falling. Additional Information is available from: [facility] Osteoporosis Information: https://my.[facility].org/departm ents/orthopaedics-rheumatology/depts/o steoporosis-metabolic The Bone Health and Osteoporosis Foundation (formerly the National Osteoporosis Foundation) : https://www.bonehealthandosteoporosis. org International Osteoporosis Foundation: https://www.osteoporosis.foundation http://ods.od.nih.gov/factsheets/vitam ind.asp [facility]: 8-532-244-BONE The Calcium Information Key[place]: I recommend following a healthy lifestyle. You [...] that features the Whole Plant Based diet, [place] over knives (see video online and visit website). Another movie that was recently released is: Eating You Alive (you can find it at Troppin) and The [employer] Changers movie Dr. Fauzia Ansari is a [facility] physician who has done research and published books, is an expert in Whole Plant based diet for prevention and reversal of heart disease. His website is [employer]. His research highlights the benefits of the [...] Engine 2 cookbook Eze is a retired director of social services who has helped many people get healthier by following the whole food plant based diet. Dr. Rock Vealzco, has a website and free angélica to help get started on a whole plant based diet, at www.pcrm.org and you can log on for free for his 21-Day Kickstart with meals and recipes to follow for 21 days. There is also a free angélica for that. He has multiple free videos and YouTube, for example: https://youtu.be/skiLxhtQ8q9 , https://youtu.be/IyWIQaexh3u He has written multiple books, including Power Food for the Brain, The Cheese Trap, Dr. Rock Velazco's Program for Reversing Diabetes, Your Body in Balance You can also watch YouTube channel : The Doc & Central Supply Manager Dr. Anthony Carlson has shown the benefit of a starch based whole food plant based diet to his Rheumatoid Arthritis patients, as well as patient with diabetes II, hypertension, obesity, multiple sclerosis, heart disease, acne, and other, his website: www.debra.Thrupoint Dr. Yayo Allred is a renowned senior formulation scientist, who has studied and researched the benefits of the Whole plant based diet. He has also researched the adverse effects of animal proteins on health. He presents many of his research findings in his book The Gunpowder study. Dr. Gerber Becker has completed many research trials proving the reversal of diseases, such as heart disease and early prostate cancer, with healthy lifestyle and the Whole Plant based diet. Dr. Gerber Becker website is: www.carmenInviteDEV.Thrupoint His new book: Undo It, has evidence based information and guide to following this healthy lifestyle. Dr. Cody Dillon has dedicated a website and additional time to reviewing all food related articles and research and presents them in his power point presentation and on his website at: nutritionfacts.org which is all free. Dr. Dillon has multiple free videos and YouTube, for example https://FlyData.be/aSgNkhgVtks and https://FlyData.be/lXXXygDRyBU. He has written multiple books including: How Not To and How Not To Diet He is now working on his next book: How Not To Age Dr. Danitza Dash (from the [facility]), has articles on the following website: [employer]Thrupoint For additional ideas on recipes, you could find additional information on practical to follow recipes by reading or watching online and YouTube such as: Central Supply Manager AJ, Cooking With Plants, The Vegan Corner (recipes from an Eritrean Central Supply Manager), The Whole Foods Plant Based Cooking Show and visiting the provided websites for additional information on the whole plant based benefit and cooking recipes. You can also consider watching the vlogs of some of the plant based Athletes such as Fausto Ewing Derek on Wrike Nutrition. You can find very good recipes [...] Dr. Jenny Degroot Lifestyle Medicine (is a Plunger Scoop Operator and Lifestyle Medicine Physician) -Sometimes it helps to start with a simple diet of potatoes, that Dr. Carlson calls Yarelis Butler. You can learn more about that in his website: www.Brille24 This is the website for AntoniettaIvanshayla Butler pdf : https://www.Brille24/wp-content /uploads//Georgiana-Carrie_Website_Pr int_Version-1.pdf You can also read more on Dr. Carlson's website - When you goal is to lose weight, it is important to listen to your hunger cues. Don't eat until you are stuffed. As soon as you feel you are no longer hungry, stop eating. There is a [place] saying that says Tammie Vega, meaning eat until you are 80% full. I say avoid eating past 80% of your stomach fullness. This originated from the city of [facility], which is one of the sites reported in the Blue Nanosys book, one of the highest cities in the world for having the most centenarians. Remember your stomach needs space and capacity for proper digestion of your food. Like a food taster or a wiper blender, they have a limit for proper function, and should not be filled to the top. You can read more about that from the [facility] article Don t Eat Until You re Full ? Instead, Mind Your Tammie Vega Point , at https://health.[facility].org/don w-qhr-tvopp-ruixb-tcdc-umoynsq-mind-yo ai-qtvl-fqxay-salvador-point/ Most plants contain proteins and all essential [...] also important to ensure they are 3rd republican tested to avoid contaminants. You can track your macros on a nutrition tracker such as cronometer or [place] Lingtu Softwarenesspal and others. Dr. Maryan Holguin (a psychiatrist [...] you will need to consult with a precision aircraft systems assembler to have further evaluation to exclude Celiac [...] - Gentle Yoga Anyone Can Do Anywhere www.SecureNet.Thrupoint/yoga Also on youtube: yoga with Karlie For women, especially after menopause, strength training is important. You can read more on that from Clare Morley, PhD at her website https://www.FreshDigitalGroup and YouTube videos. If you are a beginner, it is best to start with a physical therapist or personal development educator. There are also several Aps that offer virtual personal training 3- Good Sleep (poor sleep impacts everything, recommended sleep is 7 to 8 hrs. a night). Certain people may need more sleep, depending on their age and other conditions. Meditation and relaxation techniques have shown to help with improving sleep. Try to be consistent with your sleep. You can find more at the [facility] Website on : https://Embrace+.[facility].org/Cahootsy [employer]s/wellness/store/go-well#sleep-tab 4- Stress management, be happy, laugh often [...] Calm Insight Timer Meditation Stress Free Now ([facility]). You can find more resources at the [facility] website at : https://Embrace+.[facility].org/departOrigin Holdingss/wellness/store/go-well#stress-iron e-tab There are many free youtube videos on guided meditation as well For Breathing techniques: You can watch John Carlisle and learn the breathing technique and its benefits by watching the following YouTube: https://youtu.be/2Md5J-HRp16?si=-Xtdfr 4UpsJOUbDU. Learning about your awareness/spiritual being, is [...] work with a psychotherapist or behavioral health men's basketball coach. When having a psychiatric condition, it [...] or a higher dose. Raw: Garlic, Cilantro, Adams nuts, Pumpkin seeds, Alleghany seeds and Flax seed powder have been reported to help with certain metal detoxification such as mercury. Farnsworth-3 plant based rich foods are good anti-inflammatory [...] the Whole Plant Based Diet, by watching [place] over Consano movie and then review website. There are many other resources and educational information on the Whole plant based diet on the Internet and documentaries. There are other resources for wellness that you can also benefit from, such as the [facility] Wellness website, the [facility].org and includes Plant based and Mediterranean diet, yoga and meditation. Please avoid all dairy products. You could use non-dairy milk such as Flax milk, Cashew milk, Clifford milk, Rice milk, Oat milk or Hemp [...] below, just add the ingredients to your wiper blender and blend: - Probably the healthiest smoothie is one that contains mostly green leafy vegetables (especially containing kale), some berries, flax seed and water. This might not router setter to be sweet. You can add one or two pitted dates or a frozen banana for natural sweetness. Examples of healthy green smoothies, pack your wiper blender (at least half way to 01/17) with a mix of green leafy veggies, then top your wiper blender with fruits (such as banana or [...] risk for kidney stones. The same with st helenian chards and beet leaves. If you don't [...] of your health and wellbeing. At the [facility], we work as a team for your care, along with Nurse Practitioners, Physician Assistants, Nurses and Medical Assistants. It is a privilege and honor to serve you. Thank you for choosing The [facility] for your healthcare. Sincerely, Darrian Dubon MD [...] usual activities immediately. documented in this encounter [facility] 02-14-2025 History of Present illness Narrative Images from the original note were not included. FOLLOW UP VISIT [facility] [place] [address] PCP: Jose L Lackey MD [address] [facility] [place] [address] Consult Requested by: Jose L Lackey MD [address] [facility] [address] Other physicians: Cloth Measurer Machine prev. Nel Lebron MD (his prev. precision aircraft systems assembler left- Ronald Brown MD) ; Now following [...] BRBPR and denies melena. He follows with Cloth Measurer Machine for his UC. States has scopes this summer by his precision aircraft systems assembler. He is following with Orthopedics for his osteoarthroses and non-inflammatory joint pains. He has a chronic rotator cuff tear and extensive bilateral glenohumeral degenerative disease. His s/p b/l TKR and rt THR. Hissed rate was elevated at 79 04/2024 at time of his pneumonia. He continues on sulfasalazine and Entyvio by his precision aircraft systems assembler. He does not describe RA related symptoms No jt pains or swelling outside of the LLE from TKR Denies rheum nodules No stiffness He is on sulfasalazine per precision aircraft systems assembler for his UC and this has been controlling his RA He is pleased with his treatment regimen He also states that his IBD is well controlled, states told is in remission, on Entyvio Doing exercise and working with personal development educator at the gym and will be going [...] in IBD and is following with local precision aircraft systems assembler for that. Has been on Humira since Sep 2020 (started with 80 mg loading dose and since has been on 40 mg every 2 wks) He was pleased with Enbrel response to his RA and later was switched to Humira, reports has similar benefit and is pleased with response. 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 Reports still gets 8 BM's a day, does not have BM at night, does not have to wake up from sleep. Has been following with his precision aircraft systems assembler for his UC Had colonoscopy 11/22/2021 with reported marked improvement in asc/transv/desc colon and severe active in rectum, histopath with active colitis with erosions. States Dr. Lebron has started him on rectal enemas. Recent colonoscopy with reported active colitis. He tells me that he continues to have multiple BM's; His precision aircraft systems assembler prescribed pred. course, completed recently. No jt [...] us, he is on Humira per his Cloth Measurer Machine He is off Enbrel, was switched to Humira by his precision aircraft systems assembler. (previously was on Enbrel 25 mg twice a wk and has been in remission since on Enbrel and very pleased with his treatment regimen) He is on Humira 40 mg every 2 wks by his Cloth Measurer Machine He is on sulfasalazine, Humira and mesalamine enemas per his precision aircraft systems assembler I have reviewed benefits of a whole food plant based diet He consumes dairy, cheese, sausage, hamburger. I have advised him on avoiding meats and dairy and reviewed reports and patient experience with flare of IBD and RA, as well as gastrointestinal dysbiosis. I advised him on a whole foods plant based diet. He has a wiper blender (Fast[employer]) and interested in making healthy smoothies and [...] in this patient with known rheumatoid arthritis. Topline Beading Machine Tender: CODY Transcribe Date/Time: Feb 20 2021 9:52A [...] felt rt shoulder needed to be stretched. [facility] was working in yard, denies injury. Denies jt pains, outside of the left tip of ankle, states feels the top of the left ankle feels like it's jammed up , feels needs to pull bones apart. [facility] is the site where has fallen arch. Has seen Fast Food Crew Lead in the remote past for the fallen arch, not recently. Feels gets stiff when not moving as much. Denies any injury or trauma. Denies any pain to me today States his precision aircraft systems assembler has prescribed prednisone course due to IBD flare States after scope was told is flared. He is on sulfasalazine and budesonide and his precision aircraft systems assembler and since has switched him from Enbrel [...] Alk phos isoenz: liver fraction; followed by precision aircraft systems assembler He follows with his precision aircraft systems assembler for hi elev alk phos and AST and for bld with stools, Dr Brown: and states he started him on iron supplement States Dr. Brown prescribed metronidazole, for reported diarrhea. [facility] felt it made a difference. [facility] he gave him enemas and told that is for his ulcerative colitis and prescr. sulfasalazine. In 2018, has also followed with his precision aircraft systems assembler for blood with stools, and had flex sig and told he was inflamed from his Ulcerative colitis. [facility] had colonosc and EGD in 2018 and was told were good. Told his bld in stools from his UC and patient states notices also mucus when wipes. [facility] had increased his sulfasalazine dose. [facility] also notices that dairy and cheese [...] systems reviewed and are negative DXA Model: LinPrim W [id number] SITE SCANNED: Lumbar spine and left hip [...] were all normal. He follows with his precision aircraft systems assembler for his ulcerative colitis and is on sulfasalazine. He was told by his precision aircraft systems assembler to avoid sun exposure due to this med, had skin itching last summer. He had evaluation for elevated AST and alk phos. Alk phos has improved and AST has been borderline elevated. I have advised him to f/u with his precision aircraft systems assembler for his elevated alk phos (liver fraction) States his precision aircraft systems assembler did an US of his liver twice and was told was normal. He denies any alcohol consumption or acetaminophens. His isoenzyme indicated predom. of liver origin. The patient reports that his precision aircraft systems assembler completed evaluation and told his liver is fine. His liver US was unremarkable . His anemia has resolved since his UC has been controlled. States saw his precision aircraft systems assembler, Dr. Lebron, recently and states told him [...] and denies hematuria or dysuria. DXA Model: LinPrim W [id number] SITE SCANNED: Lumbar spine and left hip [...] states not bad . has seen a six pack packer in the past, in [place], Dr. Whitfield. [...] 500mg q 6hrs. Reports benefit and his precision aircraft systems assembler took him off the iron supplement as his iron was good. [facility] has advised him to avoid all nsaids and recently had discontinued his Celebrex. 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 Lackey Smoking: quit [...] Abs Lymph 1.00 - 4.00 k/uL 3.02 Parke% 9.7 Abs Parke 0.00 - 0.86 k/uL 0.79 Eosin% 0.0 [...] Negative Negative Ketones, Urine Negative Negative Specific [place], Ur 1.005 - 1.030 1.008 Hemoglobin/Blood,Ur Negative 3+ (A) pH, Urine 4.5 - 8.0 6.0 Protein, Urine Negative mg/dL Negative Urobilinogen Normal Normal Nitrites Negative Negative Leukest Negative Negative Comments SEE COMMENT Urine Adan Comment SEE COMMENT WBC, Urine 0 - 5 /HPF 0-5 RBC, Urine 0 - 3 /HPF >25 (A) Sm Antibody <1.0 AI <0.2 AUDIOLOGIST Antibody <1.0 AI 1.2 (H) SSA Antibody <1.0 AI <0.2 SSB Antibody <1.0 AI <0.2 Centromere Ab <1.0 AI <0.2 Scleroderma Ab, IgG <1.0 AI <0.2 Milagro 1 Antibody <1.0 AI <0.2 Ribosomal AUDIOLOGIST <1.0 AI <0.2 Chromatin Antibody <1.0 AI [...] <12 Sm Antibody <1.0 AI <0.2 Ribosomal AUDIOLOGIST <1.0 AI <0.2 Chromatin Antibody <1.0 AI <0.2 SSA Antibody <1.0 AI <0.2 SSB Antibody <1.0 AI <0.2 AUDIOLOGIST Antibody <1.0 AI 1.2 Scleroderma Ab, IgG [...] FINDINGS CONSISTENT WITH CHRONIC SEVERE RHEUMATOID ARTHRITIS. Topline Beading Machine Tender: [facility] Transcribe Date/Time: Aug 29 2015 12:56P ... Last XR Ankle - Impression Only XR ANKLE GENERAL 3V AP/LAT/OBL LT Exam End: 02/20/2021 8:42 AM (Final result) Impression: IMPRESSION: Arthritic changes demonstrating interval progression in this patient with known rheumatoid arthritis. Topline Beading Machine Tender: [id number] Transcribe Date/Time: Feb 20 2021 9:52A [...] developed and its performance characteristics determined by [facility] Laboratory Medicine [place] ([facility]). It has not been cleared or approved by the FDA. -[facility] is regulated under CLIA as qualified to perform high-complexity testing. This test is used for clinical purposes. It should not be regarded as investigational or for research. Testosterone Date Value Ref Range Status 08/19/2018 387 193 - 824 ng/dL Final Comment: A testosterone level in the 193-320 ng/dL range with associated clinical symptoms is considered low and may indicate hypogonadism (from [facility] [phone]:123-135). Results >320 ng/dL are considered [...] 147 53 - 334 mg/dL Final [facility]PA Wayne, Serum Date Value Ref Range Status 08/19/2018 1,020 534 - 1,267 mg/dL Final MPA Lambda, Serum Date Value Ref Range Status 08/19/2018 551 253 - 653 mg/dL Final [facility]PA Wayne/Lambda Ratio Date Value Ref Range Status 08/19/2018 [...] , Gender: Male SCANNER INFORMATION: DXA Model: LinPrim W [id number] SITE SCANNED: Lumbar spine and left hip [...] machine for accurate comparison. FOR MORE INFORMATION: [facility] Osteoporosis and Metabolic Bone Disease: www.ccf.org/arthritis/osteo National Osteoporosis Foundation: www.nof.org International Society of Clinical Densitometry www.iscd.org Topline Beading Machine Tender: [id number] Transcribe Date/Time: Sep 23 2022 10:28A Dictated [...] in patient's severe chronic Rheumatoid Arthritis. His precision aircraft systems assembler has switched him to Humira as he [...] to receive intermittent steroid therapy from his precision aircraft systems assembler. Pharmacologic therapy is still indicated and recommended, [...] Also receives labs per Primary care physician/ Cloth Measurer Machine Recheck DXA scheduled 05/2025 -The patient's precision aircraft systems assembler follows him for his UC, anemia and liver tests. He is on Entyvio and sulfasalazine per his Cloth Measurer Machine RA med: none from rheum, doing well on sulfasalazine, prescribed by GI (He was prev. on Enbrel 25 mg sq twice a week, or may switch to Humira if his precision aircraft systems assembler switched him to Humira TNF inhibitor therapy, [...] on sulfasalazine for his IBD per his precision aircraft systems assembler OP med: Received Reclast infusion, 5 mg IV on 05/09/2024 well tolerated Further infusions will be determined based on recheck DXA and CTX, or if on systemic steroids. As previously discussed, his OP med of choice is IV Reclast Oral bisphosphonate contraindicated due to his IBD and gastrointestinal disease. Osteoporosis was likely due to previous group home steroid therapy by other physicians over the [...] atypical and subtroch. fracture of femur with buttermaker use of bisphosphonates/alendronate and anti-resorptive agents, there [...] wished to proceed. Previous orders -CONSULT TO STRATEGIC CONSULTANT -CONSULT TO PODIATRY Provided referral to OT for assistive devices, exercises to preserve left function Referral to control engineer for foot/ankle deformities and callus care, inserts/braces/orthotics, [...] spent included preparing to see the patient, zvgh-pb-tezx patient care, completing clinical documentation, obtaining and/or [...] appropriate immunization recommended. -Continued follow up with precision aircraft systems assembler for IBD management and monitoring for liver [...] Darrian Fischer MD Jose L Lackey MD [address] [place] [address] Medical Decision Making: Problems: Moderate: 2+ stable chronic illnesses Data: Unique source(s) for external note(s) reviewed: 3+ Unique test result(s) reviewed: 3+ Medical Decision Making Level: 4 - Moderate documented in this encounter [facility] 02-14-2025 Note HNO ID: [id number] Author: DARRIAN DUBON MD Service: ? Author Type: Physician Type: Progress Notes Filed: 02/20/2025 17:28 Note Text: FOLLOW UP VISIT Patient's Name: Jam Torres Rip [place] [id number] PCP: Jose L Lackey MD [address] [place] [phone] Consult Requested by: Jose L Lackey MD [address] [place] [id number] Other physicians: Cloth Measurer Machine prev. Nel Lebron MD (his prev. precision aircraft systems assembler left- Ronald Brown MD) ; Now following with Dr. Luis Antonio García Accompanied by: self Interim history: Mr. Toscano is a very nice 59 y.o. gentleman here for f/u visit for Rheumatoid Arthritis and Osteoporosis He follows with IBD, UC, on Entyvio and sulfasalazine; States had liver US and fibroscan, told no fatty liver He is no longer on anti-TNF therapy. [facility] his PCP is treating his anemia with iron, was on supplement and switched to IV. He is not aware of bleeding, denies BRBPR and denies melena. He follows with Cloth Measurer Machine for his UC. [facility] has scopes this summer by his precision aircraft systems assembler. He is following with Orthopedics for his osteoarthroses and non-inflammatory joint pains. He has a chronic rotator cuff tear and extensive bilateral glenohumeral degenerative disease. His s/p b/l TKR and rt THR. Hissed rate was elevated at 79 04/2024 at time of his pneumonia. He continues on sulfasalazine and Entyvio by his precision aircraft systems assembler. He does not describe RA related symptoms No jt pains or swelling outside of the LLE from TKR Denies rheum nodules No stiffness He is on sulfasalazine per precision aircraft systems assembler for his UC and this has been controlling his RA He is pleased with his treatment regimen He also states that his IBD is well controlled, states told is in remission, on Entyvio Doing exercise and working with personal development educator at the gym and will be going [...] in IBD and is following with local precision aircraft systems assembler for that. Has been on Humira since Sep 2020 (started with 80 mg loading dose and since has been on 40 mg every 2 wks) He was pleased with Enbrel response to his RA and later was switched to Humira, reports has similar benefit and is pleased with response. 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 Reports still gets 8 BM's a day, does not have BM at night, does not have to wake up from sleep. Has been following with his precision aircraft systems assembler for his UC Had colonoscopy 11/22/2021 with reported marked improvement in asc/transv/desc colon and severe active in rectum, histopath with active colitis with erosions. States Dr. Lebron has started him on rectal enemas. Recent colonoscopy with reported active colitis. He tells me that he continues to have multiple BM's; His precision aircraft systems assembler prescribed pred. course, completed recently. No jt [...] us, he is on Humira per his Cloth Measurer Machine He is off Enbrel, was switched to Humira by his precision aircraft systems assembler. (previously was on Enbrel 25 mg twice a wk and has been in remission since on Enbrel and very pleased with his treatment regimen) He is on Humira 40 mg every 2 wks by his Cloth Measurer Machine He is on sulfasalazine, Humira and mesalamine enemas per his precision aircraft systems assembler I have reviewed benefits of a whole food plant based diet He consumes dairy, cheese, sausage, hamburger. I have advised him on avoiding meats and dairy and reviewed reports and patient experience with flare of IBD and RA, as well as gastrointestinal dysbiosis. I advised him on a whole foods plant based diet. He has a wiper blender (My Healthy World XL) and interested in making healthy smoothies and we have discussed at last visit. He has stopped drinking monster energy drink with water and I advised him to a (more content not included)... [facility] 11-23-2024 Telephone encounter Note Thank you for trying. Since has seen his PCP, he would not need sooner apt with me. thank you kindly, fa [facility] 11-23-2024 Miscellaneous Notes Thank you for trying. [...] Please offer appt with Dr Dubon or CEMENTER, if patient still interested. Thank you for [...] apt with me or any rheum ANGÉLICA (CEMENTER or PA) who has opening soon. thank you kindly, fa -Pt returning call to office. Pt identified by name and date. Pt given message as detailed below and verbalized understanding. -States the only trauma/injury he has experienced recently is that he stubbed his RT middle toe 3 days ago. States this is lathe tender with movement. Denies any change in [...] feet/fingers/shoulders Please advise documented in this encounter [facility] 11-23-2024 Telephone encounter Note Patient returned call and can not make it today, seen his PCP for the issue.please advise. [facility] 11-23-2024 Telephone encounter Note Hi Dr. Dubon [...] Jordyn KELLER November 23, 2024 9:03 AM [facility] 11-23-2024 Telephone encounter Note Please offer appt with Dr Dubon or CEMENTER, if patient still interested. [facility] 11-22-2024 Telephone encounter Note Thank you [...] apt with me or any rheum ANGÉLICA (CEMENTER or PA) who has opening soon. thank you kindly, fa [facility] 11-22-2024 Note Urology Office/Clini c Note Chief Complaint referral HPI Staff 59yr old male referred by Dr. Lackey for kidney stones w/ KUB. KUB done at [facility] on 11/14/24. Pt has seen [...] PSA: 06/24/16 - 1.60 *only level per FT 08/13/18 - 2.29 *only level on clinisync [...] Urology [address], [place] [address]- Additional Instructions: f/u pending CT Patient Education [...] Gross hematuria Hea (more content not included)... [facility] Comment on above: Result Comment: [...] toe 3 days ago. States this is lathe tender with movement. Denies any change in [...] Pt then apologized and ended the call. [facility] 11-21-2024 Note Patient Education Nephrology Dietary Guidelines [...] ? 8 oz (237 mL) of milk, kpegjyd-sdtzkusdgaxf-ynjms milk, and calcium-fortifiedfruit juice. Calcium-fortified means that [...] Spinach (cooked), rhubarb, beets, sweet potatoes, and Citizen [place] chard. ? Peanuts. ? Potato chips, thai fries, and baked potatoes with skin on. ? Nuts and nut products. ? Chocolate. ??? If you regularly take a diuretic medicine, make sure to eat at least 1 or 2 servings of fruits or vegetables that are high in potassium each day. These include: ? Avocado. ? Banana. ? Ely, prune, carrot, or tomato juice. ? Baked [...] fish oil, or vitamin B6. ??? Take uvua-ldl-ipzpqog and prescription medicines only as told by your health (more content not included)... [facility] 11-21-2024 Telephone encounter Note Left message requesting return call. [facility] 11-21-2024 Telephone encounter Note Thank you [...] had before ? thank you kindly, fa [facility] 11-21-2024 Telephone encounter Note Images from [...] not completely. Pain: Bilateral feet/fingers/shoulders Please advise [facility] 10-05-2024 Instructions Darrian Dubon MD - 10/05/2024 7:56 AM EST -PLEASE NOTE THAT WE REVIEW ALL YOUR TEST RESULTS AT YOUR NEXT FOLLOW UP VISIT WITH YOU. IF ANY ABNORMAL LAB REQUIRES SOONER ATTENTION, WE WILL CONTACT YOU. -If you have signed up on Aditivehart, we will release your test results through 4moms. I wish you the best of health [...] track your nutrition and calcium intake on www.Origin Holdings.Thrupoint This provides macro and micronutrient intake and requirements. - You can track your calcium intake on [employer].Thrupoint or any other calcium tracker of your [...] youtube and copy and paste this link: [email or web address].be/[email or web address] This is done by a Physical Medicine and Rehab doctor who is a topology professor in [employer]. She completed a PhD at the [facility]. I hope you find it helpful. [...] hazelnuts, legumes, soybeans and other beans) - [place] (potatoes, avocados, almonds, peanuts) - Chromium (broccoli, [...] Eur J Clin Nutr 62, 155-161 (2007). https://doi.org/10.1038/sj.ejcn.146245 8 -Clyde Rosa, Trisha Lara, Bar De Leon et al. Isoflavone intervention and its impact on bone mineral density in postmenopausal women: a systematic review and meta-analysis of randomized controlled trials. Osteoporos Int (2022). https://doi.org/10.1007/j44760-644-522 44-y -Jack Finch, Trisha Lara, Andrez Grant. et al. Effects of isoflavone interventions on bone mineral density in postmenopausal women: a systematic review and meta-analysis of randomized controlled trials. Osteoporos Int 31, 9943-1842 (2020). https://doi.org/10.1007/z59438-876-330 76-z - Benefits of consuming soy in whole foods are listed in this article at the PCR website: https://www.pcr.org/good-nutrition/nu trition-information/occ-cbn-awihje - Prunes have been reported to help [...] Am J Clin Nutr. 2021 6;116(4):897-910. doi: 10.1093/ajcn/mrja619. PMID: 84643165. -Benefit to bone density and inflammation: Hebert WYMAN, Perrin, Glory SOLARES, Sivakumar ALDANA, Trey CUBA. The Role of Prunes in Modulating Inflammatory Pathways to Improve Bone Health in Postmenopausal Women. Adv Nutr. 2021 2;13(5):4600-6977. doi: 10.1093/advances/iuxh195. PMID: 76635498; PMCID: [id number]. - Information on Vitamin K2: more recently [...] with the exception of Natto (a traditional [place] food made from fermented soybeans) has high [...] of these foods, please consult with your Gas Line Servicer or Physician first. Review of Osteoporosis medications [...] in the office. This medication is given buttermaker, indefinitely. Prolia should not be discontinued without [...] looked into transition therapy. Recent study from [facility] Slim et al, 04/11/2020 (PMID: 56200538.The study is ongoing, clinicaltrials.gov; [id number]), reported one infusion of IV Reclast did [...] initiated in patients who have had an RI or stroke in the preceding year or those considered high risk. We may need a clearance from a Plunger Scoop Operator prior to proceeding with this medication [...] and the different available medications at the [place] [employer] website at: https://www.rheumatology.org/I-Am-A/Ernesto wyatt-Caregiver/Diseases-Conditions/Os [...] Osteoporosis Foundation) http://www.osteo.org/osteolinks.asp National Institutes of Health: 2-950-414-BONE The Calcium Information Center: Non-Dairy, Plant based Milk, can contain in1 glass up to 450 mg of calcium (300 to 450 mg) Exampled include Oat Milk, Flax Milk, Clifford Milk, Cashew Milk, Soy Milk, Peas Milk Examples of Food Sources of Calcium from NIH Food Milligrams (mg) per serving Percent DV* Soymilk, calcium-fortified, 8 ounces 299 30 Ely juice, calcium-fortified, 6 ounces 261 26 Tofu, firm, made with calcium sulfate, cup* 253 25 Tofu, soft, made with calcium sulfate, cup* 138 14 Gyikz-yi-bqn cereal, calcium-fortified, 1 cup 100-1,000 10-100 Turnip greens, fresh, boiled, cup 99 10 Kale, raw, chopped, 1 cup 100 10 Kale, fresh, cooked, 1 cup 94 9 [place] Islander cabbage, bok marin, raw, shredded, 1 cup 74 7 Bread, white, 1 slice 73 7 Tortilla, corn, wsjpi-ya-obrt/marshall, one 6 diameter 46 5 Tortilla, flour, fvfsw-ps-qdwf/marshall, one 6 diameter 32 3 Bread, whole-wheat, [...] daily with a meal; Certain patients require 1654-9109 international units daily and in patients deficient [...] bones. Studies show approximately 50% of [place] men and women are vitamin D deficient [...] of falling. Additional Information is available from: [facility] Osteoporosis Information: https://my.[facility].org/departm ents/orthopaedics-rheumatology/depts/o steoporosis-metabolic The Bone Health and Osteoporosis Foundation (formerly the National Osteoporosis Foundation) : https://www.bonehealthandosteoporosis. org International Osteoporosis Foundation: https://www.osteoporosis.foundation http://ods.od.nih.gov/factsheets/vitam ind.asp National Institutes of Health: 8-432-478-BONE The Calcium Information Keyport: I recommend following a healthy lifestyle. You [...] track your nutrition and calcium intake on www.[employer].Thrupoint This provides macro and micronutrient intake and [...] that features the Whole Plant Based diet, [place] over knives (see video online and visit website). Another movie that was recently released is: Eating You Alive (you can find it at Troppin) and The [employer] movie Dr. Fauzia Ansari is a [facility] physician who has done research and published books, is an expert in Whole Plant based diet for prevention and reversal of heart disease. His website is [employer]inal Sciences. His research highlights the benefits of the Whole food plant based diet in reversing and preventing heart disease. Mrs. Cookie Ansari (his ) has a cookbook with many recipes on whole plant based food: The Prevent and Reverse Heart Disease cookbook. Cookie and Yamile Leongдмитрий have a cooking show on YouTube called: Plant-Based with Yamile Leongдмитрий and Cookie Leongдмитрий. You can also consider reading his son, Eze Ansari's book: The Engine 2 cookbook Eze is a retired director of social services who has helped many people get healthier [...] multiple free videos and YouTube, for example: https://youMONOQI.Foodfly/dxiZgbkR9a4 , https://youMONOQI.be/KmTUTvhyx6s He has written multiple books, including Power Symvato for the Brain, The Cheese Trap, Dr. Rock Velazco's Program for Reversing Diabetes, Your Body in Balance You can also watch YouTube channel : The Doc & Central Supply Manager Dr. Anthony Carlson has shown the benefit of a starch based whole food plant based diet to his Rheumatoid Arthritis patients, as well as patient with diabetes II, hypertension, obesity, multiple sclerosis, heart disease, acne, and other, his website: www.debra.Thrupoint Dr. Yayo Allred is a renowned senior formulation scientist, who has studied and researched the benefits of the Whole plant based diet. He has also researched the adverse effects of animal proteins on health. He presents many of his research findings in his book The Gunpowder study. Dr. Gerber Becker has completed many research trials proving the reversal of diseases, such as heart disease and early prostate cancer, with healthy lifestyle and the Whole Plant based diet. Dr. Gerber Becker website is: www.carmenInviteDEV.Thrupoint His new book: Undo It, has evidence based information and guide to following this healthy lifestyle. Dr. Cody Dillon has dedicated a website and additional time to reviewing all food related articles and research and presents them in his power point presentation and on his website at: nutritionfacts.org which is all free. Dr. Dillon has multiple free videos and YouTube, for example https://youEyeviewu.be/aSgNkhgVtks and https://youMONOQI.be/lXXXygDRyBU. He has written multiple books including: How Not To and How Not To Diet He is now working on his next book: How Not To Age Dr. Danitza Dash (from the [facility]), has articles on the following website: [employer].Thrupoint For additional ideas on recipes, you could find additional information on practical to follow recipes by reading or watching online and YouTube such as: Chef BELLE, Cooking With Plants, The Vegan Corner (recipes from an Eritrean Central Supply Manager), The Whole Foods Plant Based Cooking Show and visiting the provided websites for additional information on the whole plant based benefit and cooking recipes. You can also consider watching the vlogs of some of the plant based Athletes such as Fausto Ewing Derek on Wrike Nutrition. You can find very good recipes [...] Dr. Jenny Degroot Lifestyle Medicine (is a Plunger Scoop Operator and Lifestyle Medicine Physician) -Sometimes it helps to start with a simple diet of potatoes, that Dr. Carlson calls Patricias Play for Job. You can learn more about that in his website: www.Brille24 This is the website for Patricias Mini pdf : https://www.Adzilla.Thrupoint/wp-content /uploads//Georgiana-Mini_Website_Pr int_Version-1.pdf You can also read more on Dr. Carlson's website - When you goal is to lose weight, it is important to listen to your hunger cues. Don't eat until you are stuffed. As soon as you feel you are no longer hungry, stop eating. There is a [place] saying that says Tammie Vega, meaning eat until you are 80% full. I say avoid eating past 80% of your stomach fullness. This originated from the city of [facility], which is one of the sites reported in the Blue Nanosys book, one of the highest cities in the world for having the most centenarians. Remember your stomach needs space and capacity for proper digestion of your food. Like a food taster or a wiper blender, they have a limit for proper function, and should not be filled to the top. You can read more about that from the [facility] article Don t Eat Until You re Full ? Instead, Mind Your Tammie [place] Point , at https://health.[facility].org/don v-ibd-kitsd-qhiyb-fdtm-sfplrph-mind-yo ie-vfhu-niljv-salvador-annie/ Most plants contain proteins and all essential [...] also important to ensure they are 3rd republican tested to avoid contaminants. You can track [...] you will need to consult with a precision aircraft systems assembler to have further evaluation to exclude Celiac [...] - Gentle Yoga Anyone Can Do Anywhere www.SecureNet.Thrupoint/yoga Also on youtube: yoga with Karlie For women, especially after menopause, strength training is important. You can read more on that from Clare Morley, PhD at her website https://www.SlamData.Thrupoint and YouTube videos. If you are a beginner, it is best to start with a physical therapist or personal development educator. There are also several Aps that offer virtual personal training 3- Good Sleep (poor sleep impacts everything, recommended sleep is 7 to 8 hrs. a night). Certain people may need more sleep, depending on their age and other conditions. Meditation and relaxation techniques have shown to help with improving sleep. Try to be consistent with your sleep. You can find more at the [facility] Website on : https://my.[facility].org/departm ents/wellness/store/go-well#sleep-tab 4- Stress management, be happy, [...] Calm Insight Timer Meditation Stress Free Now ([facility]). You can find more resources at the [facility] website at : https://my.[facility].org/departm ents/wellness/store/go-well#stress-iron e-tab There are many free youtube videos on guided meditation as well For Breathing techniques: You can watch John Maylin and learn the breathing technique and its benefits by watching the following YouTube: https://youEyeviewu.be/9Vl9L-SSa59?si=-Xtdfr 4UpsJOUbDU. Learning about your awareness/spiritual being, is [...] work with a psychotherapist or behavioral health men's basketball coach. When having a psychiatric condition, it [...] or a higher dose. Raw: Garlic, Cilantro, Adams nuts, Pumpkin seeds, Alleghany seeds and Flax seed powder have been reported to help with certain metal detoxification such as mercury. Farnsworth-3 plant based rich foods are good anti-inflammatory [...] the Whole Plant Based Diet, by watching [place] over Consano movie and then review website. There are many other resources and educational information on the Whole plant based diet on the Internet and documentaries. There are other resources for wellness that you can also benefit from, such as the [facility] Wellness website, the [facility].org and includes Plant based and Mediterranean diet, yoga and meditation. Please avoid all dairy products. You could use non-dairy milk such as Flax milk, Cashew milk, Clifford milk, Rice milk, Oat milk or Hemp [...] below, just add the ingredients to your wiper blender and blend: - Probably the healthiest smoothie is one that contains mostly green leafy vegetables (especially containing kale), some berries, flax seed and water. This might not router setter to be sweet. You can add one or two pitted dates or a frozen banana for natural sweetness. Examples of healthy green smoothies, pack your wiper blender (at least half way to 3/4) with a mix of green leafy veggies, then top your wiper blender with fruits (such as banana or [...] risk for kidney stones. The same with st helenian chards and beet leaves. If you don't [...] of your health and wellbeing. At the [facility], we work as a team for your care, along with Nurse Practitioners, Physician Assistants, Nurses and Medical Assistants. It is a privilege and honor to serve you. Thank you for choosing The [facility] for your healthcare. Sincerely, Darrian Dubon MD [...] usual activities immediately. documented in this encounter [facility] 10-05-2024 Note HNO ID: [id number] Author: DARRIAN DUBON MD Service: ? Author Type: Physician Type: Progress Notes Filed: 10/16/2024 19:47 Note Text: FOLLOW UP VISIT Patient's Name: Jam Erwin [facility] [id number] PCP: Jose L Lackey MD [address] [place] [phone] Consult Requested by: Jose L Lackey MD [address] [place] [phone] Other physicians: Cloth Measurer Machine prev. Nel Lebron MD (his prev. precision aircraft systems assembler left- Ronald Brown MD) ; Now following [...] No stiffness He is on sulfasalazine per precision aircraft systems assembler for his UC and this has been controlling his RA He is pleased with his treatment regimen He also states that his IBD is well controlled, states told is in remission, on Entyvio Doing exercise and working with personal development educator at the gym and will be going [...] in IBD and is following with local precision aircraft systems assembler for that. Has been on Humira since Sep 2020 (started with 80 mg loading dose and since has been on 40 mg every 2 wks) He was pleased with Enbrel response to his RA and later was switched to Humira, reports has similar benefit and is pleased with response. 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 Reports still gets 8 BM's a day, does not have BM at night, does not have to wake up from sleep. Has been following with his precision aircraft systems assembler for his UC Had colonoscopy 11/22/2021 with reported marked improvement in asc/transv/desc colon and severe active in rectum, histopath with active colitis with erosions. States Dr. Lebron has started him on rectal enemas. Recent colonoscopy with reported active colitis. He tells me that he continues to have multiple BM's; His precision aircraft systems assembler prescribed pred. course, completed recently. No jt [...] us, he is on Humira per his Cloth Measurer Machine He is off Enbrel, was switched to Humira by his precision aircraft systems assembler. (previously was on Enbrel 25 mg twice a wk and has been in remission since on Enbrel and very pleased with his treatment regimen) He is on Humira 40 mg every 2 wks by his Cloth Measurer Machine He is on sulfasalazine, Humira and mesalamine enemas per his precision aircraft systems assembler I have reviewed benefits of a whole food plant based diet He consumes dairy, cheese, sausage, hamburger. I have advised him on avoiding meats and dairy and reviewed reports and patient experience with flare of IBD and RA, as well as gastrointestinal dysbiosis. I advised him on a whole foods plant based diet. He has a wiper blender (My Healthy World XL) and interested in making healthy smoothies [...] I have ad (more content not included)... [facility] 10-05-2024 History of Present illness Narrative Images from the original note were not included. FOLLOW UP VISIT Patient's Name: Jam Erwin [facility] [id number] PCP: Jose L Lackey MD [address] [place] [id number] Consult Requested by: Jose L Lackey MD [address] [place] [id number] Other physicians: Cloth Measurer Machine prev. Nel Lebron MD (his prev. precision aircraft systems assembler left- Ronald Brown MD) ; Now following [...] No stiffness He is on sulfasalazine per precision aircraft systems assembler for his UC and this has been controlling his RA He is pleased with his treatment regimen He also states that his IBD is well controlled, states told is in remission, on Entyvio Doing exercise and working with personal development educator at the gym and will be going [...] in IBD and is following with local precision aircraft systems assembler for that. Has been on Humira since Sep 2020 (started with 80 mg loading dose and since has been on 40 mg every 2 wks) He was pleased with Enbrel response to his RA and later was switched to Humira, reports has similar benefit and is pleased with response. 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 Reports still gets 8 BM's a day, does not have BM at night, does not have to wake up from sleep. Has been following with his precision aircraft systems assembler for his UC Had colonoscopy 11/22/2021 with reported marked improvement in asc/transv/desc colon and severe active in rectum, histopath with active colitis with erosions. States Dr. Lebron has started him on rectal enemas. Recent colonoscopy with reported active colitis. He tells me that he continues to have multiple BM's; His precision aircraft systems assembler prescribed pred. course, completed recently. No jt [...] us, he is on Humira per his Cloth Measurer Machine He is off Enbrel, was switched to Humira by his precision aircraft systems assembler. (previously was on Enbrel 25 mg twice a wk and has been in remission since on Enbrel and very pleased with his treatment regimen) He is on Humira 40 mg every 2 wks by his Cloth Measurer Machine He is on sulfasalazine, Humira and mesalamine enemas per his precision aircraft systems assembler I have reviewed benefits of a whole food plant based diet He consumes dairy, cheese, sausage, hamburger. I have advised him on avoiding meats and dairy and reviewed reports and patient experience with flare of IBD and RA, as well as gastrointestinal dysbiosis. I advised him on a whole foods plant based diet. He has a wiper blender (My Healthy World XL) and interested in making healthy smoothies [...] in this patient with known rheumatoid arthritis. Topline Beading Machine Tender: CODY Transcribe Date/Time: Feb 20 2021 9:52A [...] , feels needs to pull bones apart. [facility] is the site where has fallen arch. Has seen Fast Food Crew Lead in the remote past for the fallen arch, not recently. Feels gets stiff when not moving as much. Denies any injury or trauma. Denies any pain to me today States his precision aircraft systems assembler has prescribed prednisone course due to IBD flare States after scope was told is flared. He is on sulfasalazine and budesonide and his precision aircraft systems assembler and since has switched him from Enbrel [...] Alk phos isoenz: liver fraction; followed by precision aircraft systems assembler He follows with his precision aircraft systems assembler for hi elev alk phos and AST and for bld with stools, Dr Brown: and states he started him on iron supplement [facility] Dr. Brown prescribed metronidazole, for reported diarrhea. [facility] felt it made a difference. [facility] he gave him enemas and told that is for his ulcerative colitis and prescr. sulfasalazine. In 2019, has also followed with his precision aircraft systems assembler for blood with stools, and had flex sig and told he was inflamed from his Ulcerative colitis. [facility] had colonosc and EGD in 2018 and was told were good. Told his bld in stools from his UC and patient states notices also mucus when wipes. [facility] had increased his sulfasalazine dose. [facility] also notices that dairy and cheese caused really bad inflammation from these and has avoided since. [facility] also avoids coffee and consumes green [...] systems reviewed and are negative DXA Model: LinPrim W [id number] SITE SCANNED: Lumbar spine and left hip [...] were all normal. He follows with his precision aircraft systems assembler for his ulcerative colitis and is on sulfasalazine. He was told by his precision aircraft systems assembler to avoid sun exposure due to this med, had skin itching last summer. He had evaluation for elevated AST and alk phos. Alk phos has improved and AST has been borderline elevated. I have advised him to f/u with his precision aircraft systems assembler for his elevated alk phos (liver fraction) States his precision aircraft systems assembler did an US of his liver twice and was told was normal. He denies any alcohol consumption or acetaminophens. His isoenzyme indicated predom. of liver origin. The patient reports that his precision aircraft systems assembler completed evaluation and told his liver is fine. His liver US was unremarkable . His anemia has resolved since his UC has been controlled. States saw his precision aircraft systems assembler, Dr. Lebron, recently and states told him [...] and denies hematuria or dysuria. DXA Model: LinPrim W [id number] SITE SCANNED: Lumbar spine and left hip [...] states not bad . has seen a six pack packer in the past, in [place], Dr. Whitfield. States used to be on [...] 500mg q 6hrs. Reports benefit and his precision aircraft systems assembler took him off the iron supplement as [...] Dactylitis: no H/o precedent/frequent infection(s): as above Enthesopathy/Red House's/heel/plantar tenderness: no Skin thickening, psoriasis, photosensitivity, purpura: no Nail changes: no Alpecia, patchy: no; has MPB Eye inflammation: no SICCA: no Oral/nasal/genital ulcers: no GI problems-diarrhea/bleeding/IBD/Gluten intolerence/Dysphagia: as above Raynaud's phenomenon/digital ulcers: no Organ inv-Serositis: no Lung disease/ILD: no Myopathy/proximal muscle weakness: no Abnormal Urine or urethritis: no Renal disease: no ENGINEERING PROFESSIONALS/PNS disease: no and denies MS HEME-Cytopenias/LAD/Clots: iron [...] Marital Status: Single denies children 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 Lackey Smoking: quit 2012 Alcohol as above IVDU: denies Industrial toxic exposures: denies FAMILY HISTORY: No family history on file. suspects his mother may have had RA Mother: CAD, CABG, COPD/emphysemia Father: passed from [facility] bother were smokers PERTINENT TESTS: [...] Abs Lymph 1.00 - 4.00 k/uL 3.02 Parke% 9.7 Abs Parke 0.00 - 0.86 k/uL 0.79 Eosin% 0.0 [...] Negative Negative Ketones, Urine Negative Negative Specific [place], Ur 1.005 - 1.030 1.008 Hemoglobin/Blood,Ur Negative 3+ (A) pH, Urine 4.5 - 8.0 6.0 Protein, Urine Negative mg/dL Negative Urobilinogen Normal Normal Nitrites Negative Negative Leukest Negative Negative Comments SEE COMMENT Urine Adan Comment SEE COMMENT WBC, Urine 0 - 5 /HPF 0-5 RBC, Urine 0 - 3 /HPF >25 (A) Sm Antibody <1.0 AI <0.2 AUDIOLOGIST Antibody <1.0 AI 1.2 (H) SSA Antibody <1.0 AI <0.2 SSB Antibody <1.0 AI <0.2 Centromere Ab <1.0 AI <0.2 Scleroderma Ab, IgG <1.0 AI <0.2 Milagro 1 Antibody <1.0 AI <0.2 Ribosomal AUDIOLOGIST <1.0 AI <0.2 Chromatin Antibody <1.0 AI [...] <12 Sm Antibody <1.0 AI <0.2 Ribosomal AUDIOLOGIST <1.0 AI <0.2 Chromatin Antibody <1.0 AI <0.2 SSA Antibody <1.0 AI <0.2 SSB Antibody <1.0 AI <0.2 AUDIOLOGIST Antibody <1.0 AI 1.2 Scleroderma Ab, IgG [...] FINDINGS CONSISTENT WITH CHRONIC SEVERE RHEUMATOID ARTHRITIS. Topline Beading Machine Tender: [facility] Transcribe Date/Time: Aug 29 2015 12:56P ... Last XR Ankle - Impression Only XR ANKLE GENERAL 3V AP/LAT/OBL LT Exam End: 02/20/2021 8:42 AM (Final result) Impression: IMPRESSION: Arthritic changes demonstrating interval progression in this patient with known rheumatoid arthritis. Topline Beading Machine Tender: CODY Transcribe Date/Time: Feb 20 2021 9:52A [...] developed and its performance characteristics determined by [facility] [place] ([facility]). It has not been cleared or approved by the FDA. [facility] is regulated under CLIA as qualified to [...] 147 53 - 334 mg/dL Final MPA Wayne, Serum Date Value Ref Range Status 08/19/2018 1,020 534 - 1,267 mg/dL Final MPA Lambda, Serum Date Value Ref Range Status 08/19/2018 551 253 - 653 mg/dL Final MPA Wayne/Lambda Ratio Date Value Ref Range Status 08/19/2018 [...] , Gender: Male SCANNER INFORMATION: DXA Model: LinPrim W [id number] SITE SCANNED: Lumbar spine and left hip [...] accurate comparison. FOR MORE INFORMATION: [facility] Disease: www.ccf.org/arthritis/osteo National Osteoporosis Foundation: www.nof.org International Society of Clinical Densitometry www.iscd.org Topline Beading Machine Tender: [id number] Transcribe Date/Time: Sep 23 2022 10:28A Dictated by : DARRIAN DUBON MD This examination was interpreted and the report reviewed and electronically signed by: DARRIAN DBUON MD on Sep 28 2022 6:46PM EST [...] in patient's severe chronic Rheumatoid Arthritis. His precision aircraft systems assembler has switched him to Humira as he [...] to receive intermittent steroid therapy from his precision aircraft systems assembler. Pharmacologic therapy is still indicated and recommended, [...] Also received labs per Primary care physician, Cloth Measurer Machine -The patient's precision aircraft systems assembler follows him for his UC, anemia and liver tests. He is on Entyvio and sulfasalazine per his Cloth Measurer Machine RA med: none from rheum, doing well on sulfasalazine, prescribed by GI (He was prev. on Enbrel 25 mg sq twice a week, or may switch to Humira if his precision aircraft systems assembler switched him to Humira TNF inhibitor therapy, [...] on sulfasalazine for his IBD per his precision aircraft systems assembler OP med: Received Reclast infusion, 5 mg IV on 05/09/2024 well tolerated Further infusions will be determined based on recheck DXA and CTX, or if on systemic steroids. As previously discussed, his OP med of choice is IV Reclast Oral bisphosphonate contraindicated due to his IBD and gastrointestinal disease. Osteoporosis was likely due to previous buttermaker steroid therapy by other physicians over the [...] atypical and subtroch. fracture of femur with buttermaker use of bisphosphonates/alendronate and anti-resorptive agents, there [...] wished to proceed. Previous orders -CONSULT TO STRATEGIC CONSULTANT -CONSULT TO PODIATRY Provided referral to OT for assistive devices, exercises to preserve left function Referral to control engineer for foot/ankle deformities and callus care, inserts/braces/orthotics, [...] which included preparing to see the patient, [id number] patient care, completing clinical documentation, obtaining and/or [...] appropriate immunization recommended. -Continued follow up with precision aircraft systems assembler for IBD management and monitoring for liver [...] MD Jose L Lackey MD [address] [id number] documented in this encounter [facility] 05-09-2024 History of Present illness Narrative FOR [...] current infection? No documented in this encounter [facility] 05-09-2024 Instructions Nidia Ascencio, DIRECTOR OF SUSTAINABILITY PROGRAMS.KNURLING MACHINE TENDER - 05/09/2024 9:45 AM EDT -PLEASE NOTE THAT WE REVIEW ALL YOUR TEST RESULTS AT YOUR NEXT FOLLOW UP VISIT WITH YOU. IF ANY ABNORMAL LAB REQUIRES SOONER ATTENTION, WE WILL CONTACT YOU. -If you have signed up on 4moms, we will release your test results through 4moms. I wish you the best of health [...] and sulfasalazine, but discuss first with your precision aircraft systems assembler. Supplements recommended Vitamin B12: 500 to 1000 [...] track your nutrition and calcium intake on www.[employer].Thrupoint This provides macro and micronutrient intake and requirements. - You can track your calcium intake on Stretch or any other calcium tracker of your [...] now for a cost, such as at www.Plastio. -When eating a whole food plant based [...] track your nutrition and calcium intake on www.Creabilisometer.Thrupoint This provides macro and micronutrient intake and [...] that features the Whole Plant Based diet, [place] over knives (see video online and visit website). Another movie that was recently released is: Eating You Alive (you can find it at Troppin) and The Game Changers movie Dr. Fauzia Ansari is a [facility] physician who is an expert in Whole Plant based diet. His website is Endoluminal Sciences. His research highlights the benefits of the Whole food plant based diet in reversing and preventing heart disease. Mrs. Ansari (his ) has a cookbook with many recipes on whole plant based food: The Prevent and Reverse Heart Disease cookbook. You can also consider reading his son, Eze Ansari's book: The Engine 2 cookbook Eze is a retired director of social services who has helped many people get healthier [...] multiple free videos and YouTube, for example: https://youtu.be/ibqQfjyW0z8 , https://youtu.be/AfIWWmlmx6g He has written multiple books, including Power [...] heart disease, acne, and other, his website: www.debra.Thrupoint Dr. Yayo Allred is a renowned senior formulation scientist, who has studied and researched the benefits of the Whole plant based diet. He has also researched the adverse effects of animal proteins on health. He presents many of his research findings in his book The Gunpowder study. Dr. Gerber Becker has completed many research trials proving the reversal of diseases, such as heart disease and early prostate cancer, with healthy lifestyle and the Whole Plant based diet. Dr. Gerber Becker website is: www.dagoberto.Thrupoint His new book: Undo It, has evidence based information and guide to following this healthy lifestyle. Dr. Cody Dillon has dedicated a website and additional time to reviewing all food related articles and research and presents them in his power point presentation and on his website at: nutritionfacts.org which is all free. Dr. Dillon has multiple free videos and YouTube, for example https://youEyeviewu.be/aSgNkhgVtks and https://youMONOQI.be/lXXXygDRyBU. He has written multiple books including: How Not To and How Not To Diet He is now working on his next book: How Not To Age Dr. Danitza Dash (from the [facility]), has articles on the following website: [employer] Also, you could find additional information on practical to follow recipes by reading or watching online and YouTube such as: Central Supply Manager AJ, Cooking With Plants, The Vegan Corner (recipes from an E[place]an Central Supply Manager), The Whole Foods Plant Based Cooking Show and visiting the provided websites for additional information on the whole plant based benefit and cooking recipes. You can also consider watching the vlogs of some of the plant based Athletes such as Fausto Ewing Derek on En[employer] HQ. Dr. Maryan Holguin (a psychiatrist who suffered [...] - Gentle Yoga Anyone Can Do Anywhere www.DS Digitale Seiten/yoga Also on youtube: yoga with Karlie 3- [...] or a higher dose. Raw: Garlic, Cilantro, Adams nuts, Pumpkin seeds, Alleghany seeds and Flax seed powder have been reported to help with certain metal detoxification such as mercury. Farnsworth-3 plant based rich foods are good anti-inflammatory [...] the Whole Plant Based Diet, by watching [place] over [place] movie and then review website. There are many other resources and educational information on the Whole plant based diet on the Internet and documentaries. There are other resources for wellness that you can also benefit from, such as the [facility] website, the [facility].org and includes Plant based and Mediterranean diet, yoga and meditation. Please avoid all dairy products. You could use non-dairy milk such as Flax milk, Cashew milk, Clifford milk, Rice milk, Oat milk or Hemp [...] Osteoporosis Foundation) http://www.osteo.org/osteolinks.asp National Institutes of Health: 9-281-346-BONE The Calcium Information Center: -Non-Dairy, Plant based Milk, can contain in1 glass up to 450 mg of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 or a higher dose. Raw: Garlic, Cilantro, Adams nuts, Pumpkin seeds, Alleghany seeds and Flax seed powder have been reported to help with certain metal detoxification such as mercury. Farnsworth-3 plant based rich foods are good anti-inflammatory [...] the Whole Plant Based Diet, by watching [place] over KnMetranome movie and then review website. There are many other resources and educational information on the Whole plant based diet on the Internet and documentaries. There are other resources for wellness that you can also benefit from, such as the [facility] Wellness website, the [facility] and includes Plant based and Mediterranean diet, yoga and meditation. Please avoid all dairy products. You could use non-dairy milk such as Flax milk, Cashew milk, Clifford milk, Rice milk, Oat milk or Hemp [...] Osteoporosis Foundation) http://www.osteo.org/osteolinks.asp National Institutes of Health: 4-979-987-BONE The Calcium Information Keyport: -Non-Dairy, Plant based Milk, can contain in1 glass up to 450 mg of calcium (300 to 450 mg) Exampled include Oat Milk, Flax Milk, Clifford Milk, Cashew Milk, Soy Milk, Peas Milk general health and well being Examples of Food Sources of Calcium from NIH Food Milligrams (mg) per serving Percent DV* Soymilk, calcium-fortified, 8 ounces 299 30 Ely juice, calcium-fortified, 6 ounces 261 26 Tofu, firm, made with calcium sulfate, cup* 253 25 Tofu, soft, made with calcium sulfate, cup* 138 14 Mkigr-ov-oje cereal, calcium-fortified, 1 cup 100-1,000 10-100 Turnip greens, fresh, boiled, cup 99 10 Kale, raw, chopped, 1 cup 100 10 Kale, fresh, cooked, 1 cup 94 9 [place]er cabbage, bok marin, raw, shredded, 1 cup 74 7 Bread, white, 1 slice 73 7 Tortilla, corn, ykhvn-bc-vkfz/marshall, one 6 diameter 46 5 Tortilla, flour, ydcaw-qe-vbvb/marshall, one 6 diameter 32 3 Bread, whole-wheat, [...] daily with a meal; Certain patients require 2607-8043 iu daily and in patients deficient in [...] bones. Studies show approximately 50% of [place] men and women are vitamin D deficient [...] from: www.nof.org (the national osteoporosis foundation) http://www.clest. [facility].org/leesa is/osteo/info.htm http://ods.od.nih.gov/factsheets/vitam ind.asp National Institutes of Health: 9-755-419-BONE [facility] Information Keyport: Review of Osteoporosis medications Medications that prevent [...] atypical and subtroch. fracture of femur with group home use of bisphosphonates/alendronate and anti-resorptive agents, there [...] and answer all OP questions. At the [facility], we work as a team for your care, along with Nurse Practitioners, Physician Assistants, Nurses and Medical Assistants. It is a privilege and honor to serve you. Thank you for choosing The [facility] for your healthcare. Sincerely, Nidia Ascencio APRN.KNURLING MACHINE TENDER PAST MEDICAL HISTORY Diagnosis Date Monoclonal gammopathy [...] developed and its performance characteristics determined [facility] [place] ([facility]). It has not been cleared or approved by the FDA. [facility] is regulated under CLIA as qualified to perform high-complexity testing. This test is used for clinical purposes. It should not be regarded as investigational or for research. Testosterone Date Value Ref Range Status 08/19/2018 387 193 - 824 ng/dL Final Comment: A testosterone level in the 193-320 ng/dL range with associated clinical symptoms is considered low and may indicate hypogonadism (from [facility] 2010 [id number]). Results >320 ng/dL are considered [...] 147 53 - 334 mg/dL Final MPA Wayne, Serum Date Value Ref Range Status 08/19/2018 1,020 534 - 1,267 mg/dL Final MPA Lambda, Serum Date Value Ref Range Status 08/19/2018 551 253 - 653 mg/dL Final MPA Wayne/Lambda Ratio Date Value Ref Range Status 08/19/2018 [...] , Gender: Male SCANNER INFORMATION: DXA Model: LinPrim W [id number] SITE SCANNED: Lumbar spine and left hip [...] the [place] adapted WHO algorithm for FRAX(TM): www.fiil.ac.uk/FRAX/tool.jsp or The WHO Fracture Risk Assessment Tool [...] accurate comparison. FOR MORE INFORMATION: [facility]: www.ccf.org/arthritis/osteo National Osteoporosis Foundation: www.nof.org International Society of Clinical Densitometry www.iscd.org Topline Beading Machine Tender: [id number] Transcribe Date/Time: Sep 23 2022 10:28A Dictated by : DARRIAN DUBON MD This examination was interpreted and the report reviewed and electronically signed by: DARRIAN DUBON MD on Sep 28 2022 6:46PM EST documented in this encounter [facility] 02-16-2024 Miscellaneous Notes Spoke with patient. Will [...] Abs Lymph 1.00 - 4.00 k/uL 1.84 Parke% % 7.3 Abs Parke <0.87 k/uL 0.59 Eosin% % 0.1 Abs [...] U/L 211 (H) documented in this encounter [facility] 05-05-2023 Miscellaneous Notes Faxed dental clearance letter to [facility] [phone]. LMOM for patient to call the office [...] 2023 3:18 PM Spoke with Reggie at [facility], Letter can be faxed to Dr Mil Farrell for signing at [phone]. Please call for dental clearance All procedures complete, infection free, no upcoming dental procedure and ok with dentist prior to reclast If they need a letter may make one for them to send back [facility] [phone] documented in this encounter [facility] 05-04-2023 Instructions Nidia Ascencio APRN.CNP - 05/04/2023 12:16 PM EDT -PLEASE NOTE THAT WE REVIEW ALL YOUR TEST RESULTS AT YOUR NEXT FOLLOW UP VISIT WITH YOU. IF ANY ABNORMAL LAB REQUIRES SOONER ATTENTION, WE WILL CONTACT YOU. -If you have signed up on Aditivehart, we will release your test results through 4moms. I wish you the best of health [...] and sulfasalazine, but discuss first with your precision aircraft systems assembler. Supplements recommended Vitamin B12: 500 to 1000 [...] track your nutrition and calcium intake on www.Origin Holdings.Thrupoint This provides macro and micronutrient intake and requirements. - You can track your calcium intake on [employer] or any other calcium tracker of your [...] now for a cost, such as at www.Plastio. -When eating a whole food plant based [...] that features the Whole Plant Based diet, [place] over knives (see video online and visit website). Another movie that was recently released is: Eating You Alive (you can find it at Uniken Systems.Thrupoint) and The Game Changers movie Dr. Fauzia Ansari is a [facility] physician who is an expert in Whole Plant based diet. His website is Endoluminal Sciences. His research highlights the benefits of the Whole food plant based diet in reversing and preventing heart disease. Mrs. Ansari (his ) has a cookbook with many recipes on whole plant based food: The Prevent and Reverse Heart Disease cookbook. You can also consider reading his son, Eze Ansari's book: The Engine 2 cookbook Eze is a retired director of social services who has helped many people get healthier by following the whole food plant based diet. Dr. Rock Velazco, has a website and free angélica to help get started on a whole plant based diet, at www.Wavemark.Coopkanics and you can log on for free for his 21-Day Kickstart with meals and recipes to follow for 21 days. There is also a free angélica for that. He has multiple free videos and YouTube, for example: https://youEyeviewu.be/[email or web address] , https://[email or web address] He has written multiple books, including Power [...] heart disease, acne, and other, his website: www.debra.Thrupoint Dr. Yayo Allred is a renowned senior formulation scientist, who has studied and researched the benefits of the Whole plant based diet. He has also researched the adverse effects of animal proteins on health. He presents many of his research findings in his book The Gunpowder study. Dr. Gerber Becker has completed many research trials proving the reversal of diseases, such as heart disease and early prostate cancer, with healthy lifestyle and the Whole Plant based diet. Dr. Gerber Becker website is: www.carmenInviteDEV.Thrupoint His new book: Undo It, has evidence based information and guide to following this healthy lifestyle. Dr. Cody Dillon has dedicated a website and additional time to reviewing all food related articles and research and presents them in his power point presentation and on his website at: nutritionfacts.org which is all free. Dr. Dillon has multiple free videos and YouTube, for example https://youEyeviewu.be/aSgNkhgVtks and https://youEyeviewu.be/[email or web address]. He has written multiple books including: How Not To and How Not To Diet He is now working on his next book: How Not To Age Dr. Danitza Dash (from the [facility]), has articles on the following website: [employer] Also, you could find additional information on practical to follow recipes by reading or watching online and YouTube such as: Central Supply Manager AJ, Cooking With Plants, The Vegan Corner (recipes from an Eritrean Central Supply Manager), The Whole Foods Plant Based Cooking Show and visiting the provided websites for additional information on the whole plant based benefit and cooking recipes. You can also consider watching the vlogs of some of the plant based Athletes such as Fausto Ewing Derek on En[employer] HQ. Dr. Maryan Holguin (a psychiatrist who suffered [...] - Gentle Yoga Anyone Can Do Anywhere www.SecureNet.Thrupoint/yoga Also on youtube: yoga with Karlie 3- [...] or a higher dose. Raw: Garlic, Cilantro, Adams nuts, Pumpkin seeds, Alleghany seeds and Flax seed powder have been reported to help with certain metal detoxification such as mercury. Farnsworth-3 plant based rich foods are good anti-inflammatory [...] the Whole Plant Based Diet, by watching [place] over Knives movie and then review website. There are many other resources and educational information on the Whole plant based diet on the Internet and documentaries. There are other resources for wellness that you can also benefit from, such as the [facility] Wellness website, the [facility]org and includes Plant based and Mediterranean diet, yoga and meditation. Please avoid all dairy products. You could use non-dairy milk such as Flax milk, Cashew milk, Clifford milk, Rice milk, Oat milk or Hemp [...] following resources: www.nof.org (National Osteoporosis Foundation) http://www.osteo.org/osteolinks.asp [facility]: 7-362-840-BONE The Calcium Information Keyport: -Non-Dairy, Plant based Milk, can contain in1 glass up to 450 mg of calcium (300 to 450 mg) Exampled include Oat Milk, Flax Milk, Clifford Milk, Cashew Milk, Soy Milk, Peas Milk general health and well being Examples of Food Sources of Calcium from [facility] Food Milligrams (mg) per serving Percent DV* Soymilk, calcium-fortified, 8 ounces 299 30 Ely juice, calcium-fortified, 6 ounces 261 26 Tofu, firm, made with calcium sulfate, cup* 253 25 Tofu, soft, made with calcium sulfate, cup* 138 14 Qxwva-am-lnp cereal, calcium-fortified, 1 cup 100-1,000 10-100 Turnip greens, fresh, boiled, cup 99 10 Kale, raw, chopped, 1 cup 100 10 Kale, fresh, cooked, 1 cup 94 9 [place] Islander cabbage, bok marin, raw, shredded, 1 cup 74 7 Bread, white, 1 slice 73 7 Tortilla, corn, ewcfn-ik-lusw/marshall, one 6 diameter 46 5 Tortilla, flour, btupm-nr-aulc/marshall, one 6 diameter 32 3 Bread, whole-wheat, [...] daily with a meal; Certain patients require 6691-9706 iu daily and in patients deficient in [...] bones. Studies show approximately 50% of [place] men and women are vitamin D deficient [...] national osteoporosis foundation) http://www.[facility].org/arthrit is/osteo/info.htm http://ods.od.nih.gov/factsheets/vitam ind.asp [facility]: 2-117-070-BONE The Calcium Information Keyport: At the [facility], we work as a team for your care, along with Nurse Practitioners, Physician Assistants, Nurses and Medical Assistants. It is a privilege and honor to serve you. Thank you for choosing The [facility] for your healthcare. Sincerely, Nidia Ascencio APRN.KNURLING MACHINE TENDER documented in this encounter [facility] 05-04-2023 History of Present illness Narrative Follow [...] was there Goes back fitting denture 09/09 [facility] dental [phone] GI - colitis 03/23 Had colonoscopy - [...] in patient's severe chronic Rheumatoid Arthritis. 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 Pharmacologic therapy is still indicated and recommended, [...] necessary, CC, NOF and ISCD and [facility]. PLAN: [facility] on 05/04/23 VITAMIN D 25 HYDROXY RENAL FUNCTION PANEL MONOCLONAL PROT UR W/INTERP Labs prior to next visit Reclast - You are on entyvio and sulfasalazine for your Ulcerative Colitis. These are also treating your Rheumatoid Arthritis. During infections you will need to hold the entyvio and sulfasalazine, but discuss first with your precision aircraft systems assembler. Supplements recommended Vitamin B12: 500 to 1000 [...] in the office. This medication is given group home, indefinitely. Prolia should not be discontinued without [...] looked into transition therapy. Recent study from [facility] Slim et al, 04/11/2020, reported one infusion [...] initiated in patients who have had an RI or stroke in the preceding year. This [...] atypical and subtroch. fracture of femur with buttermaker use of bisphosphonates/alendronate and anti-resorptive agents, there [...] the care of your patient. Nidia Ascencio APRN.[facility] Jose L Lackey MD, MD Patient Instructions -PLEASE NOTE THAT WE REVIEW ALL YOUR TEST RESULTS AT YOUR NEXT FOLLOW UP VISIT WITH YOU. IF ANY ABNORMAL LAB REQUIRES SOONER ATTENTION, WE WILL CONTACT YOU. -If you have signed up on 4moms, we will release your test results through 4moms. I wish you the best of health [...] and sulfasalazine, but discuss first with your precision aircraft systems assembler. Supplements recommended Vitamin B12: 500 to 1000 [...] track your nutrition and calcium intake on www.Origin Holdings.Thrupoint This provides macro and micronutrient intake and requirements. - You can track your calcium intake on Stretch or any other calcium tracker of your [...] now for a cost, such as at www.Plastio. -When eating a whole food plant based [...] track your nutrition and calcium intake on www.cronometer.Thrupoint This provides macro and micronutrient intake and [...] that features the Whole Plant Based diet, [place] over knives (see video online and visit website). Another movie that was recently released is: Eating You Alive (you can find it at Troppin) and The Game Changers movie Dr. Fauzia Ansari is a [facility] physician who is an expert in Whole Plant based diet. His website is Endoluminal Sciences. His research highlights the benefits of the Whole food plant based diet in reversing and preventing heart disease. Mrs. Ansari (his ) has a cookbook with many recipes on whole plant based food: The Prevent and Reverse Heart Disease cookbook. You can also consider reading his son, Eze Ansari's book: The Engine 2 cookbook Eze is a retired director of social services who has helped many people get healthier by following the whole food plant based diet. Dr. Rock Velazco, has a website and free angélica to help get started on a whole plant based diet, at www.Wavemark.org and you can log on for free for his 21-Day Kickstart with meals and recipes to follow for 21 days. There is also a free angélica for that. He has multiple free videos and YouTube, for example: https://[email or web address]/[email or web address] , https://[email or web address]/ByTDYwgrj9p He has written multiple books, including [employer] for the Brain, The Cheese Trap, Dr. Rock Velazco's Program for Reversing Diabetes, Your Body in Balance Dr. Anthony Carlson has shown the benefit of a starch based whole food plant based diet to his Rheumatoid Arthritis patients, as well as patient with diabetes II, hypertension, obesity, multiple sclerosis, heart disease, acne, and other, his website: www.debra.Thrupoint Dr. Yayo Allred is a renowned senior formulation scientist, who has studied and researched the benefits of the Whole plant based diet. He has also researched the adverse effects of animal proteins on health. He presents many of his research findings in his book The Gunpowder study. Dr. Gerber Becker has completed many research trials proving the reversal of diseases, such as heart disease and early prostate cancer, with healthy lifestyle and the Whole Plant based diet. Dr. Gerber Becker website is: www.alvaroRSI Video Technologies.Thrupoint His new book: Undo It, has evidence [...] To Age Dr. Danitza Dash (from the [facility]), has articles on the following website: Splas[employer].Thrupoint Also, you could find additional information on practical to follow recipes by reading or watching online and YouTube such as: Central Supply Manager AJ, Cooking With Plants, The Vegan Corner (recipes from an Eritrean Central Supply Manager), The Whole Foods Plant Based Cooking Show and visiting the provided websites for additional information on the whole plant based benefit and cooking recipes. You can also consider watching the vlogs of some of the plant based Athletes such as Graeme Kamara, Agustin Lundy on [employer]. Dr. Maryan Holguin (a psychiatrist who suffered [...] - Gentle Yoga Anyone Can Do Anywhere www.SecureNet.Thrupoint/yoga Also on youtube: yoga with Karlie 3- [...] or a higher dose. Raw: Garlic, Cilantro, Adams nuts, Pumpkin seeds, Alleghany seeds and Flax seed powder have been reported to help with certain metal detoxification such as mercury. Farnsworth-3 plant based rich foods are good anti-inflammatory [...] the Whole Plant Based Diet, by watching [place] over [place] movie and then review website. There are many other resources and educational information on the Whole plant based diet on the Internet and documentaries. There are other resources for wellness that you can also benefit from, such as the [facility] Wellness website, the [facility]org and includes Plant based and Mediterranean diet, yoga and meditation. Please avoid all dairy products. You could use non-dairy milk such as Flax milk, Cashew milk, Clifford milk, Rice milk, Oat milk or Hemp [...] following resources: www.nof.org (National Osteoporosis Foundation) http://www.osteo.org/osteolinks.asp [facility]: 5-948-292-BONE [facility] Calcium Information Keyport: -Non-Dairy, Plant based Milk, can contain in1 glass up to 450 mg of calcium (300 to 450 mg) Exampled include Oat Milk, Flax Milk, Clifford Milk, Cashew Milk, Soy Milk, Peas Milk general health and well being Examples of Food Sources of Calcium from [facility] Food Milligrams (mg) per serving Percent DV* Soymilk, calcium-fortified, 8 ounces 299 30 Ely juice, calcium-fortified, 6 ounces 261 26 Tofu, firm, made with calcium sulfate, cup* 253 25 Tofu, soft, made with calcium sulfate, cup* 138 14 Cpnpw-az-nfd cereal, calcium-fortified, 1 cup 100-1,000 10-100 Turnip greens, fresh, boiled, cup 99 10 Kale, raw, chopped, 1 cup 100 10 Kale, fresh, cooked, 1 cup 94 9 [place] Islander cabbage, bok marin, raw, shredded, 1 cup 74 7 Bread, white, 1 slice 73 7 Tortilla, corn, opjfo-jl-gnxt/marshall, one 6 diameter 46 5 Tortilla, flour, pmpcx-ud-tuui/marshall, one 6 diameter 32 3 Bread, whole-wheat, [...] information online at: http://ods.od.nih.gov/factsheets/Calci -[facility]/ Vitamin D: Vitamin D3= cholecalciferol, available over the counter. Dose recommended 800 to 1000 iu daily with a meal; Certain patients require 7123-4083 iu daily and in patients deficient in [...] bones. Studies show approximately 50% of [place] men and women are vitamin D deficient [...] national osteoporosis foundation) http://www.[facility]veland[facility]inic.org/arthrit is/osteo/info.htm http://ods.od.nih.gov/factsheets/vitam ind.asp [facility]: 6-496-226-BONE The Calcium Information Center: At the [facility], we work as a team for your care, along with Nurse Practitioners, Physician Assistants, Nurses and Medical Assistants. It is a privilege and honor to serve you. Thank you for choosing The [facility] for your healthcare. Sincerely, Nidia Ascencio APRN.KNURLING MACHINE TENDER PAST MEDICAL HISTORY Diagnosis Date Monoclonal gammopathy [...] in am, 3 noon, 2 pm), per precision aircraft systems assembler No current facility-administered medications for this visit. [...] developed and its performance characteristics determined by [facility] Path[facility] and Laboratory Medicine [place] ([facility]). It has not been cleared or approved by the FDA. -[facility] is regulated under CLIA as [...] 147 53 - 334 mg/dL Final MPA Wayne, Serum Date Value Ref Range Status 08/19/2018 1,020 534 - 1,267 mg/dL Final MPA Lambda, Serum Date Value Ref Range Status 08/19/2018 551 253 - 653 mg/dL Final MPA Wayne/Lambda Ratio Date Value Ref Range Status 08/19/2018 [...] DATE OF EXAM: Sep 23 2022 10:03AM [facility] 0804 - DXA - AXIAL SKELETON / PROCEDURE REASON: multiple diagnoses * * * * Physician Interpretation * * * * EXAMINATION: DXA BONE DENSITOMETRY BD DXA - AXIAL SKELETON PATIENT DEMOGRAPHICS: Age: 57 years, Race: , Gender: Male SCANNER INFORMATION: DXA Model: LinPrim W [id number] SITE SCANNED: Lumbar spine and left hip [...] the [place] adapted WHO algorithm for FRAX(TM): www.fiil.ac.uk/FRAX/tool.jsp or The WHO Fracture Risk Assessment Tool [...] machine for accurate comparison. FOR MORE INFORMATION: [facility] Osteoporosis and Metabolic Bone Disease: www.ccf.org/arthritis/osteo National Osteoporosis Foundation: www.nof.org International Society of Clinical Densitometry www.iscd.org Topline Beading Machine Tender: [id number] Transcribe Date/Time: Sep 23 2022 10:28A Dictated by : DARRIAN DUBON MD This examination was interpreted and the report reviewed and electronically signed by: DARRIAN DUBON MD on Sep 28 2022 6:46PM EST documented in this encounter [facility] 03-02-2023 Instructions Nidia Ascencio APRN.JOSE - 03/02/2023 11:10 AM EDT -PLEASE NOTE THAT WE REVIEW ALL YOUR TEST RESULTS AT YOUR NEXT FOLLOW UP VISIT WITH YOU. IF ANY ABNORMAL LAB REQUIRES SOONER ATTENTION, WE WILL CONTACT YOU. -If you have signed up on Active [employer] MEMSt, we will release your test results through 4moms. I wish you the best of health [...] and sulfasalazine, but discuss first with your precision aircraft systems assembler. Supplements recommended Vitamin B12: 500 to 1000 [...] track your nutrition and calcium intake on www.Origin Holdings.Thrupoint This provides macro and micronutrient intake and requirements. - You can track your calcium intake on Stretch or any other calcium tracker of your [...] now for a cost, such as at www.Plastio. -When eating a whole food plant based [...] track your nutrition and calcium intake on www.cronometer.Thrupoint This provides macro and micronutrient intake and [...] that features the Whole Plant Based diet, [place] over knives (see video online and visit website). Another movie that was recently released is: Eating You Alive (you can find it at Troppin) and The [employer] movie Dr. Fauzia Ansari is a [facility] physician who is an expert in Whole Plant based diet. His website is Endoluminal Sciences. His research highlights the benefits of the Whole food plant based diet in reversing and preventing heart disease. Mrs. Ansari (his ) has a cookbook with many recipes on whole plant based food: The Prevent and Reverse Heart Disease cookbook. You can also consider reading his son, Eze Ansari's book: The Engine 2 cookbook Eze is a retired director of social services who has helped many people get healthier [...] multiple free videos and YouTube, for example: https://youtu.be/gskDfbiO9c2 , https://youtu.be/SzSNGryhs1i He has written multiple books, including Power [...] heart disease, acne, and other, his website: www.tejadomaríal.Thrupoint Dr. Yayo Allred is a renowned senior formulation scientist, who has studied and researched the benefits of the Whole plant based diet. He has also researched the adverse effects of animal proteins on health. He presents many of his research findings in his book The Gunpowder study. Dr. Gerber Becker has completed many research trials proving the reversal of diseases, such as heart disease and early prostate cancer, with healthy lifestyle and the Whole Plant based diet. Dr. Gerber Becker website is: www.carmenInviteDEV.Thrupoint His new book: Undo It, has evidence based information and guide to following this healthy lifestyle. Dr. Cody Dillon has dedicated a website and additional time to reviewing all food related articles and research and presents them in his power point presentation and on his website at: nutritionfacts.org which is all free. Dr. Dillon has multiple free videos and YouTube, for example https://FlyData.Foodfly/aSgNkhgVtks and https://FlyData.Foodfly/lXXXygDRyBU. He has written multiple books including: How Not To and How Not To Diet He is now working on his next book: How Not To Age Dr. Danitza Dash (from the [facility]), has articles on the following website: Splas[employer]op[employer] Inc.Thrupoint Also, you could find additional information on practical to follow recipes by reading or watching online and YouTube such as: Central Supply Manager AJ, Cooking With Plants, The Vegan Corner (recipes from an Erit[place]an Central Supply Manager), The Whole Foods Plant Based Cooking Show and visiting the provided websites for additional information on the whole plant based benefit and cooking recipes. You can also consider watching the vlogs of some of the plant based Athletes such as Fausto Eiwng Derek on [employer]. Dr. Maryan Holguin (a psychiatrist who [...] - Gentle Yoga Anyone Can Do Anywhere www.DS Digitale Seiten/yoga Also on youtube: yoga with Karlie 3- [...] or a higher dose. Raw: Garlic, Cilantro, Adams nuts, Pumpkin seeds, Alleghany seeds and Flax seed powder have been reported to help with certain metal detoxification such as mercury. Farnsworth-3 plant based rich foods are good anti-inflammatory [...] the Whole Plant Based Diet, by watching [place] over Consano movie and then review website. There are many other resources and educational information on the Whole plant based diet on the Internet and documentaries. There are other resources for wellness that you can also benefit from, such as the [facility] Wellness website, the [facility]org and includes Plant based and Mediterranean diet, yoga and meditation. Please avoid all dairy products. You could use non-dairy milk such as Flax milk, Cashew milk, Clifford milk, Rice milk, Oat milk or Hemp [...] Osteoporosis Foundation) http://www.osteo.org/osteolinks.asp National Institutes of Health: 2-085-834-BONE The Calcium Information Center: -Non-Dairy, Plant based Milk, can contain in1 glass up to 450 mg of calcium (300 to 450 mg) Exampled include Oat Milk, Flax Milk, Clifford Milk, Cashew Milk, Soy Milk, Peas Milk general health and well being Examples of Food Sources of Calcium from NIH Food Milligrams (mg) per serving Percent DV* Soymilk, calcium-fortified, 8 ounces 299 30 Ely juice, calcium-fortified, 6 ounces 261 26 Tofu, firm, made with calcium sulfate, cup* 253 25 Tofu, soft, made with calcium sulfate, cup* 138 14 Dkrcl-sx-weg cereal, calcium-fortified, 1 cup 100-1,000 10-100 Turnip greens, fresh, boiled, cup 99 10 Kale, raw, chopped, 1 cup 100 10 Kale, fresh, cooked, 1 cup 94 9 [place] Islander cabbage, bok marin, raw, shredded, 1 cup 74 7 Bread, white, 1 slice 73 7 Tortilla, corn, vexeq-hk-vkeo/marshall, one 6 diameter 46 5 Tortilla, flour, nbluo-cg-hgbb/marshall, one 6 diameter 32 3 Bread, whole-wheat, [...] daily with a meal; Certain patients require 0540-9140 iu daily and in patients deficient in [...] bones. Studies show approximately 50% of [place] men and women are vitamin D deficient [...] is/osteo/info.htm http://ods.od.nih.gov/factsheets/vitam ind.asp National Institutes of Health: 6-820-069-BONE The Calcium Information Keyport: At the [facility], we work as a team for your care, along with Nurse Practitioners, Physician Assistants, Nurses and Medical Assistants. It is a privilege and honor to serve you. Thank you for choosing The [facility] for your healthcare. Sincerely, Nidia Ascencio APRN.JOSE documented in this encounter [facility] 03-02-2023 History of Present illness Narrative Follow [...] in patient's severe chronic Rheumatoid Arthritis. 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 Pharmacologic therapy is still indicated and recommended, [...] necessary, CC, NOF and ISCD and [facility]. PLAN: No orders found for this visit on 03/02/23. Please continue on yout Vitamin D 5000 international units once daily with meals and your multivitamin - You are on Humira and sulfasalazine for your Ulcerative Colitis. These are also treating your Rheumatoid Arthritis. During infections you will need to hold the Humira and sulfasalazine, but discuss first with your precision aircraft systems assembler. Supplements recommended Vitamin B12: 500 to 1000 [...] in the office. This medication is given buttermaker, indefinitely. Prolia should not be discontinued without [...] looked into transition therapy. Recent study from [facility] Slim et al, 04/11/2020, reported one infusion [...] initiated in patients who have had an RI or stroke in the preceding year. This [...] atypical and subtroch. fracture of femur with buttermaker use of bisphosphonates/alendronate and anti-resorptive agents, there [...] the care of your patient. Nidia Ascencio APRN.KNURLING MACHINE TENDER cc Jose L Lackey MD, MD Patient Instructions -PLEASE NOTE THAT WE REVIEW ALL YOUR TEST RESULTS AT YOUR NEXT FOLLOW UP VISIT WITH YOU. IF ANY ABNORMAL LAB REQUIRES SOONER ATTENTION, WE WILL CONTACT YOU. -If you have signed up on 4moms, we will release your test results through 4moms. I wish you the best of health [...] and sulfasalazine, but discuss first with your precision aircraft systems assembler. Supplements recommended Vitamin B12: 500 to 1000 [...] track your nutrition and calcium intake on www.[employer].Thrupoint This provides macro and micronutrient intake and requirements. - You can track your calcium intake on Stretch or any other calcium tracker of your [...] now for a cost, such as at www.Plastio. -When eating a whole food plant based [...] that features the Whole Plant Based diet, [place] over knives (see video online and visit website). Another movie that was recently released is: Eating You Alive (you can find it at Uniken [employer].Thrupoint) and The Game Changers movie Dr. Fauzia Ansari is a [facility] physician who is an expert in Whole Plant based diet. His website is Endoluminal Sciences. His research highlights the benefits of the Whole food plant based diet in reversing and preventing heart disease. Mrs. Ansari (his ) has a cookbook with many recipes on whole plant based food: The Prevent and Reverse Heart Disease cookbook. You can also consider reading his son, Eze Ansari's book: The Engine 2 cookbook Eze is a retired director of social services who has helped many people get healthier by following the whole food plant based diet. Dr. Rock Velazco, has a website and free angélica to help get started on a whole plant based diet, at www.Wavemark.Coopkanics and you can log on for free for his 21-Day Kickstart with meals and recipes to follow for 21 days. There is also a free angélica for that. He has multiple free videos and YouTube, for example: https://youEyeviewu.be/[email or web address] , [email or web address] He has written multiple books, including Power [...] heart disease, acne, and other, his website: www.debra.Thrupoint Dr. Yayo Allred is a renowned senior formulation scientist, who has studied and researched the benefits of the Whole plant based diet. He has also researched the adverse effects of animal proteins on health. He presents many of his research findings in his book The Gunpowder study. Dr. Gerber Becker has completed many research trials proving the reversal of diseases, such as heart disease and early prostate cancer, with healthy lifestyle and the Whole Plant based diet. Dr. Gerber Becker website is: www.carm[employer]evelyn.Thrupoint His new book: Undo It, has evidence [...] To Age Dr. Danitza Dash (from the [facility]), has articles on the following website: [employer] Also, you could find additional information on practical to follow recipes by reading or watching online and YouTube such as: Central Supply Manager AJ, Cooking With Plants, The Vegan Corner (recipes from an [place] Central Supply Manager), The Whole Foods Plant Based Cooking Show and visiting the provided websites for additional information on the whole plant based benefit and cooking recipes. You can also consider watching the vlogs of some of the plant based Athletes such as Fausto Ewing Derek on [employer]. Dr. Maryan Holguin (a psychiatrist who suffered [...] - Gentle Yoga Anyone Can Do Anywhere www.SecureNet.Thrupoint/yoga Also on youtube: yoga with Karlie 3- [...] or a higher dose. Raw: Garlic, Cilantro, Adams nuts, Pumpkin seeds, Alleghany seeds and Flax seed powder have been reported to help with certain metal detoxification such as mercury. Farnsworth-3 plant based rich foods are good anti-inflammatory [...] the Whole Plant Based Diet, by watching [place] over Knives movie and then review website. There are many other resources and educational information on the Whole plant based diet on the Internet and documentaries. There are other resources for wellness that you can also benefit from, such as the [facility] Wellness website, the [facility] and includes Plant based and Mediterranean diet, yoga and meditation. Please avoid all dairy products. You could use non-dairy milk such as Flax milk, Cashew milk, Clifford milk, Rice milk, Oat milk or Hemp [...] following resources: www.nof.org (National Osteoporosis Foundation) http://www.osteo.org/osteolinks.asp [facility]: 6-488-892-BONE The Calcium Information Keyport: -Non-Dairy, Plant based Milk, can contain in1 glass up to 450 mg of calcium (300 to 450 mg) Exampled include Oat Milk, Flax Milk, Clifford Milk, Cashew Milk, Soy Milk, Peas Milk general health and well being Examples of Food Sources of Calcium from [facility] Food Milligrams (mg) per serving Percent DV* Soymilk, calcium-fortified, 8 ounces 299 30 Ely juice, calcium-fortified, 6 ounces 261 26 Tofu, firm, made with calcium sulfate, cup* 253 25 Tofu, soft, made with calcium sulfate, cup* 138 14 Rmkhq-uc-peu cereal, calcium-fortified, 1 cup 100-1,000 10-100 Turnip greens, fresh, boiled, cup 99 10 Kale, raw, chopped, 1 cup 100 10 Kale, fresh, cooked, 1 cup 94 9 [place] Islander cabbage, bok marin, raw, shredded, 1 cup 74 7 Bread, white, 1 slice 73 7 Tortilla, corn, kqals-gv-whsx/marshall, one 6 diameter 46 5 Tortilla, flour, dghwv-hv-ysho/marshall, one 6 diameter 32 3 Bread, whole-wheat, [...] daily with a meal; Certain patients require 5550-7451 iu daily and in patients deficient in [...] bones. Studies show approximately 50% of [place] men and women are vitamin D deficient [...] national osteoporosis foundation) http://www.[facility].org/arthrit is/osteo/info.htm http://ods.od.nih.gov/factsheets/vitam ind.asp [facility]: 7-172-810-BONE [facility] Calcium Information Keyport: At the [facility], we work as a team for your care, along with Nurse Practitioners, Physician Assistants, Nurses and Medical Assistants. It is a privilege and honor to serve you. Thank you for choosing The [facility] for your healthcare. Sincerely, Nidia Ascencio APRN.KNURLING MACHINE TENDER PAST MEDICAL HISTORY Diagnosis Date Monoclonal gammopathy [...] mg subcutaneously every 2 weeks. Prescribed by Cloth Measurer Machine : Nel Lebron MD Previously prescr. [...] in am, 3 noon, 2 pm), per precision aircraft systems assembler No current facility-administered medications for this visit. [...] developed and its performance characteristics determined by [facility] Pathology and Laboratory [facility] [place] (-PLRI). It has not been cleared or approved by the FDA. RT-PLRI is regulated under CLIA as qualified to [...] 147 53 - 334 mg/dL Final MPA Wayne, Serum Date Value Ref Range Status 08/19/2018 1,020 534 - 1,267 mg/dL Final MPA Lambda, Serum Date Value Ref Range Status 08/19/2018 551 253 - 653 mg/dL Final MPA Wayne/Lambda Ratio Date Value Ref Range Status 08/19/2018 [...] , Gender: Male SCANNER INFORMATION: DXA Model: LinPrim W [id number] SITE SCANNED: Lumbar spine and left hip [...] machine for accurate comparison. FOR MORE INFORMATION: [facility]: www.ccf.org/arthritis/osteo National Osteoporosis Foundation: www.nof.org International Society of Clinical Densitometry www.iscd.org Topline Beading Machine Tender: [id number] Transcribe Date/Time: Sep 23 2022 10:28A Dictated by : DARRIAN DUBON MD This examination was interpreted and the report reviewed and electronically signed by: DARRIAN DUBON MD on Sep 28 2022 6:46PM EST documented in this encounter [facility] 01-15-2023 Miscellaneous Notes Lm regarding results and recommendations. Please call patient Normal vit d Please continue current dose Received outside lab results from Zbigniew Mullen ordered by Nidia Ascencio CNP -- 01/12/23 Vit D 40.2 documented in this encounter [facility] 01-11-2023 Instructions Nidia Ascencio APRN.CNP - 01/11/2023 7:57 PM EST -PLEASE NOTE THAT WE REVIEW ALL YOUR TEST RESULTS AT YOUR NEXT FOLLOW UP VISIT WITH YOU. IF ANY ABNORMAL LAB REQUIRES SOONER ATTENTION, WE WILL CONTACT YOU. -If you have signed up on Aditivehart, we will release your test results through 4moms. I wish you the best of health [...] and sulfasalazine, but discuss first with your precision aircraft systems assembler. Supplements recommended Vitamin B12: 500 to 1000 [...] track your nutrition and calcium intake on www.Stretch This provides macro and micronutrient intake and requirements. - You can track your calcium intake on Stretch or any other calcium tracker of your [...] now for a cost, such as at www.Plastio. -When eating a whole food plant based [...] that features the Whole Plant Based diet, [place] over knives (see video online and visit website). Another movie that was recently released is: Eating You Alive (you can find it at Troppin) and The [employer] Changers movie Dr. Fauzia Ansari is a [facility] physician who is an expert in Whole Plant based diet. His website is Endoluminal Sciences. His research highlights the benefits of the Whole food plant based diet in reversing and preventing heart disease. Mrs. Ansari (his ) has a cookbook with many recipes on whole plant based food: The Prevent and Reverse Heart Disease cookbook. You can also consider reading his son, Eze Ansari's book: The Engine 2 cookbook Eze is a retired director of social services who has helped many people get healthier by following the whole food plant based diet. Dr. Rock Velazco, has a website and free angélica to help get started on a whole plant based diet, at www.pcrBurst Media.org and you can log on for free for his 21-Day Kickstart with meals and recipes to follow for 21 days. There is also a free angélica for that. He has multiple free videos and YouTube, for example: https://FlyData.be/[email or web address] , [email or web address]://[email or web address] He has written multiple books, including Power Symvato for the Brain, The Cheese Trap, Dr. Rock Velazco's Program for Reversing Diabetes, Your Body in Balance Dr. Anthony Carlson has shown the benefit of a starch based whole food plant based diet to his Rheumatoid Arthritis patients, as well as patient with diabetes II, hypertension, obesity, multiple sclerosis, heart disease, acne, and other, his website: www.debra.Thrupoint Dr. Yayo Allred is a renowned senior formulation scientist, who has studied and researched the benefits of the Whole plant based diet. He has also researched the adverse effects of animal proteins on health. He presents many of his research findings in his book The Gunpowder study. Dr. Gerber Becker has completed many research trials proving the reversal of diseases, such as heart disease and early prostate cancer, with healthy lifestyle and the Whole Plant based diet. Dr. Gerber Becker website is: www.carmenInviteDEV.Thrupoint His new book: Undo It, has evidence [...] To Age Dr. Danitza Dash (from the [facility]), has articles on the following website: [employer] Also, you could find additional information on practical to follow recipes by reading or watching online and YouTube such as: Central Supply Manager AJ, Cooking With Plants, The Vegan Corner (recipes from an [place] Central Supply Manager), The Whole Foods Plant Based Cooking Show and visiting the provided websites for additional information on the whole plant based benefit and cooking recipes. You can also consider watching the vlogs of some of the plant based Athletes such as Fausto Ewing Derek on [employer]. Dr. Maryan Holguin (a psychiatrist who suffered [...] - Gentle Yoga Anyone Can Do Anywhere www.SecureNet.Thrupoint/yoga Also on youtube: yoga with Karlie 3- [...] or a higher dose. Raw: Garlic, Cilantro, Adams nuts, Pumpkin seeds, Alleghany seeds and Flax seed powder have been reported to help with certain metal detoxification such as mercury. Farnsworth-3 plant based rich foods are good anti-inflammatory [...] the Whole Plant Based Diet, by watching [place] over [place] movie and then review website. There are many other resources and educational information on the Whole plant based diet on the Internet and documentaries. There are other resources for wellness that you can also benefit from, such as the [facility] website, [facility]org and includes Plant based and Mediterranean diet, yoga and meditation. Please avoid all dairy products. You could use non-dairy milk such as Flax milk, Cashew milk, Clifford milk, Rice milk, Oat milk or Hemp [...] following resources: www.nof.org (National Osteoporosis Foundation) http://www.osteo.org/osteolinks.asp [facility]: 4-183-543-BONE [facility] Calcium Information Keyport: -Non-Dairy, Plant based Milk, can contain in1 glass up to 450 mg of calcium (300 to 450 mg) Exampled include Oat Milk, Flax Milk, Clifford Milk, Cashew Milk, Soy Milk, Peas Milk general health and well being Examples of Food Sources of Calcium from [facility] Food Milligrams (mg) per serving Percent DV* Soymilk, calcium-fortified, 8 ounces 299 30 Ely juice, calcium-fortified, 6 ounces 261 26 Tofu, firm, made with calcium sulfate, cup* 253 25 Tofu, soft, made with calcium sulfate, cup* 138 14 Ecamj-pl-xxz cereal, calcium-fortified, 1 cup 100-1,000 10-100 Turnip greens, fresh, boiled, cup 99 10 Kale, raw, chopped, 1 cup 100 10 Kale, fresh, cooked, 1 cup 94 9 [place]er cabbage, bok marin, raw, shredded, 1 cup 74 7 Bread, white, 1 slice 73 7 Tortilla, corn, pmczq-lt-jjwc/marshall, one 6 diameter 46 5 Tortilla, flour, hvedb-bi-dzvh/marshall, one 6 diameter 32 3 Bread, whole-wheat, [...] could acces this information online at: http://ods.od.nih.gov/factsheets/Calci -[facility]/ Vitamin D: Vitamin D3= cholecalciferol, available over the counter. Dose recommended 800 to 1000 iu daily with a meal; Certain patients require 1930-3747 iu daily and in patients deficient in [...] bones. Studies show approximately 50% of [place] men and women are vitamin D deficient [...] available from: www.nof.org (the national osteoporosis foundation) http://www.[facility].org/arthrit is/osteo/info.htm http://ods.od.nih.gov/factsheets/vitam ind.asp [facility]: 0-115-414-BONE [facility] Calcium Information Keyport: At the [facility], we work as a team for your care, along with Nurse Practitioners, Physician Assistants, Nurses and Medical Assistants. It is a privilege and honor to serve you. Thank you for choosing The [facility] for your healthcare. Sincerely, Nidia Ascencio APRN.JOSE documented in this encounter [facility] 12-29-2022 History of Present illness Narrative Follow [...] in patient's severe chronic Rheumatoid Arthritis. 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 Pharmacologic therapy is still indicated and recommended, [...] necessary, CC, NOF and ISCD and [facility]. PLAN: [facility] on 12/29/22 VITAMIN D 25 HYDROXY Please continue on yout Vitamin D 5000 international units once daily with meals and your multivitamin - You are on Humira and sulfasalazine for your Ulcerative Colitis. These are also treating your Rheumatoid Arthritis. During infections you will need to hold the Humira and sulfasalazine, but discuss first with your precision aircraft systems assembler. Supplements recommended Vitamin B12: 500 to 1000 [...] in the office. This medication is given buttermaker, indefinitely. Prolia should not be discontinued without [...] looked into transition therapy. Recent study from [facility] Slim et al, 04/11/2020, reported one infusion [...] initiated in patients who have had an RI or stroke in the preceding year. This [...] atypical and subtroch. fracture of femur with group home use of bisphosphonates/alendronate and anti-resorptive agents, there [...] which included preparing to see the patient, mdzx-kk-ypqz patient care, completing clinical documentation, obtaining and/or [...] the care of your patient. Nidia Ascencio APRN.[facility] Jose L Lackey MD, MD Patient Instructions -PLEASE NOTE THAT WE REVIEW ALL YOUR TEST RESULTS AT YOUR NEXT FOLLOW UP VISIT WITH YOU. IF ANY ABNORMAL LAB REQUIRES SOONER ATTENTION, WE WILL CONTACT YOU. -If you have signed up on 4moms, we will release your test results through 4moms. I wish you the best of health [...] and sulfasalazine, but discuss first with your precision aircraft systems assembler. Supplements recommended Vitamin B12: 500 to 1000 [...] track your nutrition and calcium intake on www.[employer].Thrupoint This provides macro and micronutrient intake and requirements. - You can track your calcium intake on Stretch or any other calcium tracker of your [...] now for a cost, such as at www.Plastio. -When eating a whole food plant based [...] track your nutrition and calcium intake on www.Creabilisometer.Thrupoint This provides macro and micronutrient intake and [...] that features the Whole Plant Based diet, [place] over knives (see video online and visit website). Another movie that was recently released is: Eating You Alive (you can find it at Troppin) and The Game Changers movie Dr. Fauzai Ansari is a [facility] physician who is an expert in Whole Plant based diet. His website is Endoluminal Sciences. His research highlights the benefits of the Whole food plant based diet in reversing and preventing heart disease. Mrs. Ansari (his ) has a cookbook with many recipes on whole plant based food: The Prevent and Reverse Heart Disease cookbook. You can also consider reading his son, Eze Ansari's book: The Engine 2 cookbook Eze is a retired director of social services who has helped many people get healthier by following the whole food plant based diet. Dr. Rock Velazco, has a website and free angélica to help get started on a whole plant based diet, at www.pcrBurst Media.org and you can log on for free for his 21-Day Kickstart with meals and recipes to follow for 21 days. There is also a free angélica for that. He has multiple free videos and YouTube, for example: https://youEyeviewu.be/[email or web address] , [email or web address] He has written multiple books, including Power Symvato for the Brain, The Cheese Trap, Dr. Rock Velazco's Program for Reversing Diabetes, Your Body in Balance Dr. Anthony Carlson has shown the benefit of a starch based whole food plant based diet to his Rheumatoid Arthritis patients, as well as patient with diabetes II, hypertension, obesity, multiple sclerosis, heart disease, acne, and other, his website: www.debra.Thrupoint Dr. Yayo Allred is a renowned senior formulation scientist, who has studied and researched the benefits of the Whole plant based diet. He has also researched the adverse effects of animal proteins on health. He presents many of his research findings in his book The Gunpowder study. Dr. Gerber Becker has completed many research trials proving the reversal of diseases, such as heart disease and early prostate cancer, with healthy lifestyle and the Whole Plant based diet. Dr. Gerber Becker website is: www.alvaroBlack Oceanevelyn.Thrupoint His new book: Undo It, has evidence [...] To Age Dr. Danitza Dash (from the [facility]), has articles on the following website: [employer] Also, you could find additional information on practical to follow recipes by reading or watching online and YouTube such as: Central Supply Manager AJ, Cooking With Plants, The Vegan Corner (recipes from an [place] Central Supply Manager), The Whole Foods Plant Based Cooking Show and visiting the provided websites for additional information on the whole plant based benefit and cooking recipes. You can also consider watching the vlogs of some of the plant based Athletes such as Fausto Ewing Derek on [employer]. Dr. Maryan Holguin (a psychiatrist who suffered [...] - Gentle Yoga Anyone Can Do Anywhere www.SecureNet.Thrupoint/yoga Also on youtube: yoga with Karlie 3- [...] or a higher dose. Raw: Garlic, Cilantro, Adams nuts, Pumpkin seeds, Alleghany seeds and Flax seed powder have been reported to help with certain metal detoxification such as mercury. Farnsworth-3 plant based rich foods are good anti-inflammatory [...] the Whole Plant Based Diet, by watching [place] over [place] movie and then review website. There are many other resources and educational information on the Whole plant based diet on the Internet and documentaries. There are other resources for wellness that you can also benefit from, such as the [facility] Wellness website, the [facility]org and includes Plant based and Mediterranean diet, yoga and meditation. Please avoid all dairy products. You could use non-dairy milk such as Flax milk, Cashew milk, Clifford milk, Rice milk, Oat milk or Hemp [...] following resources: www.nof.org (National Osteoporosis Foundation) http://www.osteo.org/osteolinks.asp [facility]: 6-959-510-BONE The Calcium Information Keyport: -Non-Dairy, Plant based Milk, can contain in1 glass up to 450 mg of calcium (300 to 450 mg) Exampled include Oat Milk, Flax Milk, Clifford Milk, Cashew Milk, Soy Milk, Peas Milk general health and well being Examples of Food Sources of Calcium from NIH Food Milligrams (mg) per serving Percent DV* Soymilk, calcium-fortified, 8 ounces 299 30 Ely juice, calcium-fortified, 6 ounces 261 26 Tofu, firm, made with calcium sulfate, cup* 253 25 Tofu, soft, made with calcium sulfate, cup* 138 14 Ipcxs-yv-kln cereal, calcium-fortified, 1 cup 100-1,000 10-100 Turnip greens, fresh, boiled, cup 99 10 Kale, raw, chopped, 1 cup 100 10 Kale, fresh, cooked, 1 cup 94 9 [place] cabbage, bok marin, raw, shredded, 1 cup 74 7 Bread, white, 1 slice 73 7 Tortilla, corn, cbisj-ls-nqfp/marshall, one 6 diameter 46 5 Tortilla, flour, pzkbz-kl-bqlb/marshall, one 6 diameter 32 3 Bread, whole-wheat, [...] could acces this information online at: http://ods.od.nih.gov/factsheets/Calci -[facility]/ Vitamin D: Vitamin D3= cholecalciferol, available over the counter. Dose recommended 800 to 1000 iu daily with a meal; Certain patients require 1059-2123 iu daily and in patients deficient in [...] bones. Studies show approximately 50% of [place] men and women are vitamin D deficient [...] available from: www.nof.org (the national osteoporosis foundation) http://www.[facility].org/arthrit is/osteo/info.htm http://ods.od.nih.gov/factsheets/vitam [employer] National Institutes of Health: 7-317-819-BONE [facility]: At [facility], we work as a team for your care, along with Nurse Practitioners, Physician Assistants, Nurses and Medical Assistants. It is a privilege and honor to serve you. Thank you for choosing [facility] for your healthcare. Sincerely, Nidia Ascencio APRN.KNURLING MACHINE TENDER PAST MEDICAL HISTORY Diagnosis Date Monoclonal gammopathy [...] mg subcutaneously every 2 weeks. Prescribed by Cloth Measurer Machine : Nel Lebron MD Previously prescr. [...] in am, 3 noon, 2 pm), per precision aircraft systems assembler No current facility-administered medications for this visit. [...] developed and its performance characteristics determined by [facility] Laboratory [facility] [place] ([facility]). It has not been cleared or approved by the FDA. -[facility] is regulated under CLIA as qualified to perform high-complexity testing. This test is used for clinical purposes. It should not be regarded as investigational or for research. Testosterone Date Value Ref Range Status 08/19/2018 387 193 - 824 ng/dL Final Comment: A testosterone level in the 193-320 ng/dL range with associated clinical symptoms is considered low and may indicate hypogonadism (from [employer] [facility] 2010 [id number]). Results >320 ng/dL are considered [...] 147 53 - 334 mg/dL Final MPA Wayne, Serum Date Value Ref Range Status 08/19/2018 1,020 534 - 1,267 mg/dL Final MPA Lambda, Serum Date Value Ref Range Status 08/19/2018 551 253 - 653 mg/dL Final [facility] Wayne/Lambda Ratio Date Value Ref Range Status 08/19/2018 [...] , Gender: Male SCANNER INFORMATION: DXA Model: LinPrim W [id number] SITE SCANNED: Lumbar spine and left hip [...] machine for accurate comparison. FOR MORE INFORMATION: [facility]: www.ccf.org/arthritis/osteo National Osteoporosis Foundation: www.nof.org International Society of Clinical Densitometry www.iscd.org Topline Beading Machine Tender: [id number] Transcribe Date/Time: Sep 23 2022 10:28A Dictated by : DARRIAN DUBON MD This examination was interpreted and the report reviewed and electronically signed by: DARRIAN DUBON MD on Sep 28 2022 6:46PM EST documented in this encounter [facility] 09-23-2022 History of Present illness Narrative Radiology [...] 2022 9:54 AM documented in this encounter [facility] 02-10-2022 Miscellaneous Notes Pt aware. Estefanía Ferraro [...] you kindly, fa documented in this encounter [facility] 08-22-2020 History of Present illness Narrative Radiology [...] 2020 10:20 AM documented in this encounter [facility] Evaluation note Diagnosis Rheumatoid arthritis involving multiple sites with positive rheumatoid factor (HCC)- Primary Vitamin D deficiency Unspecified vitamin D deficiency Encounter to discuss test results Other specified counseling Encounter for medication review and counseling Other specified counseling Counseling on health promotion and disease prevention Other specified counseling Other osteoporosis without current pathological fracture [facility] Diagnosis Rheumatoid arthritis involving multiple sites with positive rheumatoid factor (HCC)- Primary Encounter to discuss test results Other specified counseling Counseling on health promotion and disease prevention Other specified counseling Ulcerative pancolitis (HCC) [place] ulcerative (chronic) colitis Other osteoporosis without current pathological fracture [facility] Rheumatoid arthritis involving multiple sites with positive rheumatoid factor (HCC)- Primary Encounter to discuss test results Other specified counseling Counseling on health promotion and disease prevention Other specified counseling Ulcerative pancolitis (HCC) [place] ulcerative (chronic) colitis Vitamin D deficiency Unspecified vitamin D deficiency On sulfasalazine therapy Encounter for medication review and counseling Other specified counseling Other osteoporosis without current pathological fracture Elevated serum immunoglobulin free light chain level Other nonspecific findings on examination of blood [facility] Diagnosis Seropositive rheumatoid arthritis (HCC) Rheumatoid arthritis Other osteoporosis without current pathological fracture Chronic pain of left ankle Ankle deformity, left Pes planus, unspecified laterality Other secondary osteoarthritis of multiple sites [facility] Diagnosis Rheumatoid arthritis involving multiple sites with positive rheumatoid factor (HCC) Other osteoporosis without current pathological fracture High risk for hip fracture Other specified conditions influencing health status Vitamin D deficiency, hx Unspecified vitamin D deficiency [facility] Diagnosis Other osteoporosis without current pathological fracture High risk for hip fracture Other specified conditions influencing health status Bone loss Other disorders of bone and cartilage Vitamin D deficiency, hx Unspecified vitamin D deficiency [facility] Elevated alkaline phosphatase level- Primary Other nonspecific abnormal serum enzyme levels [facility] Diagnosis Rheumatoid arthritis involving multiple sites with positive rheumatoid factor (HCC) [facility] Diagnosis Rheumatoid arthritis involving multiple sites with positive rheumatoid factor (HCC)- Primary Vitamin D deficiency Unspecified vitamin D deficiency Other osteoporosis without current pathological fracture Encounter for medication review and counseling Other specified counseling Rheumatoid arthritis involving multiple sites with positive rheumatoid factor (HCC) [facility] Diagnosis Foreign body of left hand, sequela- Primary [facility] Diagnosis Rheumatoid arthritis involving multiple sites with positive rheumatoid factor (HCC)- Primary Vitamin D deficiency Unspecified vitamin D deficiency Other osteoporosis without current pathological fracture [facility] Diagnosis Seropositive rheumatoid arthritis (HCC)- Primary Rheumatoid arthritis Rheumatoid arthritis involving multiple sites with positive rheumatoid factor (HCC) On sulfasalazine therapy Ulcerative pancolitis (HCC) [place] ulcerative (chronic) colitis Other osteoporosis without current pathological fracture History of bisphosphonate therapy Personal history of other drug therapy Counseling on health promotion and disease prevention Other specified counseling [facility] Other osteoporosis without current pathological fracture- Primary [facility] Diagnosis Seropositive rheumatoid arthritis (HCC)- Primary Rheumatoid arthritis Rheumatoid arthritis involving multiple sites with positive rheumatoid factor (HCC) On sulfasalazine therapy Ulcerative pancolitis (HCC) [place] ulcerative (chronic) colitis Other osteoporosis without current pathological fracture History of bisphosphonate therapy Personal history of other drug therapy Encounter to discuss test results Other specified counseling Encounter for medication review and counseling Other specified counseling Counseling on health promotion and disease prevention Other specified counseling [facility] Diagnosis Pain of right hip- Primary Primary osteoarthritis of right hip Arthritis of knee, left History of total hip replacement, right [facility] Pain and swelling of right knee- Primary History of total left knee replacement History of total right knee replacement Pain and swelling of left knee [facility] Diagnosis Seropositive rheumatoid arthritis (HCC) Rheumatoid arthritis Ulcerative pancolitis (HCC) [place] ulcerative (chronic) colitis Other osteoporosis without current pathological fracture History of bisphosphonate therapy Personal history of other drug therapy [facility] Diagnosis Seropositive rheumatoid arthritis (HCC)- Primary Rheumatoid arthritis Rheumatoid arthritis involving multiple sites with positive rheumatoid factor (HCC) On methotrexate therapy On sulfasalazine therapy Ulcerative pancolitis (HCC) [place] ulcerative (chronic) colitis Osteopenia of multiple sites History of osteoporosis Personal history of other musculoskeletal disorders History of bisphosphonate therapy Personal history of other drug therapy Encounter to discuss test results Other specified counseling Encounter for medication review and counseling Other specified counseling Counseling on health promotion and disease prevention Other specified counseling documented in this encounter [facility] for referral (narrative)* Diagnostic Procedure Only (Routine) - Closed Specialty Diagnoses / Procedures Referred By Hanna t Referred To Contact XR IMAGING Diagnoses Rheumatoid arthritis involving multiple sites with positive rheumatoid factor (HCC) Procedures XR HAND GENERAL 3V PA/LAT/OBL BILATERAL RADEX HAND MINIMUM 3 VIEWS Nidia Ascencio, DIRECTOR OF SUSTAINABILITY PROGRAMS.KNURLING MACHINE TENDER [address] [facility] [place] [address] [place] [address] Referral ID Status Reason Start Date Expiration Date V isits Requested Visits Authorized [id number] Closed Auto-Generate d Referral 03/14/2024 11/15/2024 1 1 [facility] for referral (narrative)* Diagnostic Procedure Only (Routine) - Closed Specialty Diagnoses / Procedures Referred By Contac t Referred To Contact XR IMAGING Diagnoses Rheumatoid arthritis involving multiple sites with positive rheumatoid factor (HCC) Procedures XR HAND GENERAL 3V PA/LAT/OBL BILATERAL RADEX HAND MINIMUM 3 VIEWS Nidia Ascencio, DIRECTOR OF SUSTAINABILITY PROGRAMS.KNURLING MACHINE TENDER [address] [place] [address] [place] [address] Referral ID Status Reason Start Date Expiration Date V isits Requested Visits Authorized [id number] Closed Auto-Generate d Referral 03/14/2024 11/15/2024 1 1 * Diagnostic Procedure Only (Routine) - Pending Review Specialty Diagnoses / Procedures Referred By Contac t Referred To Contact XR IMAGING Diagnoses Rheumatoid arthritis involving multiple sites with positive rheumatoid factor (HCC) Procedures XR HAND GENERAL 3V PA/LAT/OBL BILATERAL RADEX HAND MINIMUM 3 VIEWS Nidia Ascencio, DIRECTOR OF SUSTAINABILITY PROGRAMS.KNURLING MACHINE TENDER [address] [place] [address] [place] [address] Referral ID Status Reason Start Date Expiration Date Visits Requested Visits Authorized [id number] Pending Review Auto-Generat ed Referral 04/13/2024 04/13/2025 1 1 [facility] for referral (narrative)* Diagnostic Procedure Only (Routine) - Pending Review Specialty Diagnoses / Procedures Referred By Contac t Referred To Contact XR IMAGING Diagnoses Seropositive rheumatoid arthritis (HCC) Ulcerative pancolitis (HCC) Other osteoporosis without current pathological fracture History of bisphosphonate therapy Procedures DXA-AXIAL SKELETON DXA BONE DENSITY STUDY 1/> SITES AXIAL Darrian Tran MD [address] [place] [address] [place] [address] Referral ID Status Reason Start Date Expiration Date Visits Requested Visits Authorized [id number] Pending Review Auto-Generat ed Referral 11/04/2025 1 1 [facility] for visit Narrative* Diagnostic Procedure Only (Routine) - Closed Specialty Diagnoses / Procedures Referred By Contac t Referred To Contact XR IMAGING Diagnoses Rheumatoid arthritis involving multiple sites with positive rheumatoid factor (HCC) Procedures XR HAND GENERAL 3V PA/LAT/OBL BILATERAL RADEX HAND MINIMUM 3 VIEWS Nidia Ascencio, DIRECTOR OF SUSTAINABILITY PROGRAMS.KNURLING MACHINE TENDER [address] [facility] [place] [address] [place] [address] Referral ID Status Reason Start Date Expiration Date V isits Requested Visits Authorized [id number] Closed Auto-Generate d Referral 03/14/2024 11/15/2024 1 1 [facility] for visit Narrative* Diagnostic Procedure Only (Routine) - Closed Specialty Diagnoses / Procedures Referred By Contac t Referred To Contact XR IMAGING Diagnoses Seropositive rheumatoid arthritis (HCC) Ulcerative pancolitis (HCC) Other osteoporosis without current pathological fracture History of bisphosphonate therapy Procedures DXA-AXIAL SKELETON DXA BONE DENSITY STUDY 1/> SITES AXIAL Darrian Tran MD [address] [place] [address] Phone: tel: fax: [place] [address] Referral ID Status Reason Start Date Expiration Date V isits Requested Visits Authorized [id number] Closed Auto-Generate d Referral 04/25/2025 11/15/2025 1 1 [facility] Advance Directives No Advanced Directives Records Found [...] phosphatase level Procedures CONSULT TO HEPATOLOGY OFFICE/OUTPATIENT [facility] 60 MINUTES Nidia Ascencio, DIRECTOR OF SUSTAINABILITY PROGRAMS.KNURLING MACHINE TENDER [address] [place] [address] Referral ID Status Reason Start Date Expiration Date Visits Requested Visits Authorized [id number] Authorized PCP Requested Referral 02/11/2024 02/10/2025 1 1 Specialty Diagnoses / Procedures Referred By Contac t Referred To Contact Orthopedics Diagnoses Foreign body of left hand, sequela Procedures CONSULT TO ORTHOPAEDICS OFFICE/OUTPATIENT [facility] 60 MINUTES Nidia Ascencio, DIRECTOR OF SUSTAINABILITY PROGRAMS.KNURLING MACHINE TENDER [address] [place] [address] Referral ID Status Reason Start Date Expiration Date Visits Requested Visits Authorized [id number] Authorized PCP Requested Referral 04/11/2024 04/11/2025 1 [...] section and content) DATE CREATED AUTHOR 11/30/2021 [facility] DATE CREATED AUTHOR AUTHOR'S ORGANIZ ATION 02/20/2023 [facility] DATE CREATED AUTHOR AUTHOR'S ORGANIZ ATION 06/09/2024 [facility] DATE CREATED AUTHOR AUTHOR'S ORGANIZ ATION 12/16/2024 [facility] DATE CREATED AUTHOR AUTHOR'S ORGANIZ ATION 12/17/2024 [facility] DATE CREATED AUTHOR AUTHOR'S ORGANIZ ATION 05/08/2025 [facility] DATE CREATED AUTHOR AUTHOR'S ORGANIZ ATION 05/18/2025 [facility] DATE CREATED AUTHOR AUTHOR'S ORGANIZ ATION 06/10/2025 [facility] DATE CREATED AUTHOR AUTHOR'S ORGANIZ ATION 06/13/2025 [facility] DATE CREATED AUTHOR AUTHOR'S ORGANIZ ATION 06/16/2025 [facility] DATE CREATED AUTHOR AUTHOR'S ORGANIZ ATION 06/23/2025 [facility] DATE CREATED AUTHOR AUTHOR'S ORGANIZ ATION 06/29/2025 [facility] Source Comments (unrecognize d section and content) In the event this informatio n is protected by the Federal Confidentiality of Alcohol and Drug Abuse Patient Records regulations: The Federal rules restrict any use of the information to criminally investigate or prosecute any alcohol or drug abuse patient.[facility] the event this information is protected by the Federal Confidentiality of Alcohol and Drug Abuse Patient Records regulations: The Federal rules restrict any use of the information to criminally investigate or prosecute any alcohol or drug abuse patient.[facility] Health[facility] the event this information is protected by the Federal Confidentiality of Alcohol and Drug Abuse Patient Records regulations: The Federal rules restrict any use of the information to criminally investigate or prosecute any alcohol or drug abuse patient.[facility] the event this information is protected by the Federal Confidentiality of Alcohol and Drug Abuse Patient Records regulations: The Federal rules restrict any use of the information to criminally investigate or prosecute any alcohol or drug abuse patient.[facility] HealthIn the event this information is protected by the Federal Confidentiality of Alcohol and Drug Abuse Patient Records regulations: The Federal rules restrict any use of the information to criminally investigate or prosecute any alcohol or drug abuse patient.[facility] HealthIn the event this information is protected by the Federal Confidentiality of Alcohol and Drug Abuse Patient Records regulations: The Federal rules restrict any use of the information to criminally investigate or prosecute any alcohol or drug abuse patient.[facility] HealthIn the event this information is protected by the Federal Confidentiality of Alcohol and Drug Abuse Patient Records regulations: The Federal rules restrict any use of the information to criminally investigate or prosecute any alcohol or drug abuse patient.[facility] HealthIn the event this information is protected by the Federal Confidentiality of Alcohol and Drug Abuse Patient Records regulations: The Federal rules restrict any use of the information to criminally investigate or prosecute any alcohol or drug abuse patient.[facility] HealthIn the event this information is protected by the Federal Confidentiality of Alcohol and Drug Abuse Patient Records regulations: The Federal rules restrict any use of the information to criminally investigate or prosecute any alcohol or drug abuse patient.[facility] HealthIn the event this information is protected by the Federal Confidentiality of Alcohol and Drug Abuse Patient Records regulations: The Federal rules restrict any use of the information to criminally investigate or prosecute any alcohol or drug abuse patient.[facility] HealthIn the event this information is protected by the Federal Confidentiality of Alcohol and Drug Abuse Patient Records regulations: The Federal rules restrict any use of the information to criminally investigate or prosecute any alcohol or drug abuse patient.[facility] HealthIn the event this information is protected by the Federal Confidentiality of Alcohol and Drug Abuse Patient Records regulations: The Federal rules restrict any use of the information to criminally investigate or prosecute any alcohol or drug abuse patient.[facility] HealthIn the event this information is protected by the Federal Confidentiality of Alcohol and Drug Abuse Patient Records regulations: The Federal rules restrict any use of the information to criminally investigate or prosecute any alcohol or drug abuse patient.[facility] HealthIn the event this information is protected by the Federal Confidentiality of Alcohol and Drug Abuse Patient Records regulations: The Federal rules restrict any use of the information to criminally investigate or prosecute any alcohol or drug abuse patient.[facility] HealthIn the event this information is protected by the Federal Confidentiality of Alcohol and Drug Abuse Patient Records regulations: The Federal rules restrict any use of the information to criminally investigate or prosecute any alcohol or drug abuse patient.[facility] HealthIn the event this information is protected by the Federal Confidentiality of Alcohol and Drug Abuse Patient Records regulations: The Federal rules restrict any use of the information to criminally investigate or prosecute any alcohol or drug abuse patient.[facility] HealthIn the event this information is protected by the Federal Confidentiality of Alcohol and Drug Abuse Patient Records regulations: The Federal rules restrict any use of the information to criminally investigate or prosecute any alcohol or drug abuse patient.[facility] HealthIn the event this information is protected by the Federal Confidentiality of Alcohol and Drug Abuse Patient Records regulations: The Federal rules restrict any use of the information to criminally investigate or prosecute any alcohol or drug abuse patient.[facility] HealthIn the event this information is protected by the Federal Confidentiality of Alcohol and Drug Abuse Patient Records regulations: The Federal rules restrict any use of the information to criminally investigate or prosecute any alcohol or drug abuse patient.[facility] HealthIn the event this information is protected by the Federal Confidentiality of Alcohol and Drug Abuse Patient Records regulations: The Federal rules restrict any use of the information to criminally investigate or prosecute any alcohol or drug abuse patient.[facility] HealthIn the event this information is protected by the Federal Confidentiality of Alcohol and Drug Abuse Patient Records regulations: The Federal rules restrict any use of the information to criminally investigate or prosecute any alcohol or drug abuse patient.[facility] Reason for Visit (unrecogniz ed section and [...] INJECTION, ZOLEDRONIC ACID, 1 MG Nidia Ascencio, DIRECTOR OF SUSTAINABILITY PROGRAMS.KNURLING MACHINE TENDER [address] [place] [address] Rheu Infusion [facility] [address] [place] [address] Referral ID Status Reason Start Date Expiration Date V isits Requested Visits Authorized [id number] Authorized 04/12/2024 04/12/2025 1 1 Reason Comments Pain Reason Comments Follow-up Care Teams (unrecognized sec tion and content) Scrum Coach Relationship Specialty Start Date End Date Jose L Lackey MD PCP - General Family Practice 01/18/14 Scrum Coach Relationship Specialty Start Date End Date Jose L Lackey MD PCP - General Family Medicine 01/18/14 Scrum Coach Relationship Specialty Start Date End Date Jose L Lackey MD PCP - General Family Medicine 01/18/14 Scrum Coach Relationship Specialty Start Date End Date Jose L Lackey MD PCP - General Family Medicine 01/18/14 Scrum Coach Relationship Specialty Start Date End Date Jose L Lackey MD PCP - General Family Medicine 01/18/14 Scrum Coach Relationship Specialty Start Date End Date Jose L Lackey MD PCP - General Family Medicine 01/18/14 Scrum Coach Relationship Specialty Start Date End Date Jose L Lackey MD PCP - General Family Medicine 01/18/14 Scrum Coach Relationship Specialty Start Date End Date Jose L Lackey MD PCP - General Family Medicine 01/18/14 Scrum Coach Relationship Specialty Start Date End Date Jose L Lackey MD PCP - General Family Medicine 01/18/14 Scrum Coach Relationship Specialty Start Date End Date Jose L Lackey MD PCP - General Family Medicine 01/18/14 Scrum Coach Relationship Specialty Start Date End Date Jose L Lackey MD PCP - General Family Medicine 01/18/14 Scrum Coach Relationship Specialty Start Date End Date Jose L Lackey MD PCP - General Family Medicine 01/18/14 Scrum Coach Relationship Specialty Start Date End Date Jose L Lackey MD PCP - General Family Medicine 01/18/14 Scrum Coach Relationship Specialty Start Date End Date Jose L Lackey MD PCP - General Family Medicine 01/18/14 Scrum Coach Relationship Specialty Start Date End Date Jose L Lackey MD PCP - General Family Medicine 01/18/14 Scrum Coach Relationship Specialty Start Date End Date Jose L Lackey MD PCP - General Family Medicine 04/21/23 Scrum Coach Relationship Specialty Start Date End Date Jose L Lackey MD PCP - General Family Medicine 04/21/23 Scrum Coach Relationship Specialty Start Date End Date Jose L Lackey MD PCP - General Family Medicine 04/21/23 Scrum Coach Relationship Specialty Start Date End Date Jose L Lackey MD PCP - [facility] Family Medicine 04/21/23 Scrum Coach Relationship Specialty Start Date End Date Jose L Lackey MD PCP - [facility] 01/18/14 Scrum Coach Relationship Specialty Start Date End Date Jose [...] BE BASED ON THE PRIMARY CLINICAL RECORDS. [facility] [employer], [facility]. provides no warranty or guarantee of the accuracy or completeness of information in this document.
[2025-07-18 17:16] LABS: Hematocrit 40.3 % (42.0-54.0); Hemoglobin 13.3 g/dL (14.0-18.0); Immature Granulocytes Abs Auto 0.02 10^3/uL (0.00-0.03); Immature Granulocytes Pct Auto 0.2 % (0.0-0.5); Lymphocytes Absolute Auto 1.9 10^3/uL (1.2-3.8); Mean Corpuscular HGB Conc 33.0 g/dL (29.9-35.2); Mean Corpuscular Hemoglobin 31.4 pg (25.9-34.0); Mean Corpuscular Volume 95.3 fL (80.0-94.0); Platelet Count 254 10^3/uL (150-450); Red Blood Count 4.23 10^6/uL (4.70-6.10); White Blood Count 8.1 10^3/uL (4.0-11.0)
[2025-07-18 17:18] LABS: Alanine Aminotransferase 50 U/L (16-63); Albumin Globulin Ratio 0.9; Albumin Level 3.6 g/dL (3.4-5.0); Alkaline Phosphatase 115 U/L (46-116); Anion Gap 10.4; Aspartate Amino Transferase 28 U/L (15-37); Blood Urea Nitrogen 14.0 mg/dL (7.0-18.0); Calcium 9.1 mg/dL (8.5-10.1); Carbon Dioxide 29.7 mmol/L (21.0-32.0); Chloride 105 mmol/L (98-107); Estimated GFR (African America >60 (>=60 mL/min/1.73m^2); Estimated GFR (Non-African Ame >60 (>=60 mL/min/1.73m^2); Globulin 3.9 g/dL; Glucose 115 mg/dL (74-106); Potassium 4.1 mmol/L (3.5-5.1); Sodium 141 mmol/L (136-145); Total Protein 7.5 g/dL (6.4-8.2)
[2025-07-18 17:46] LABS: Iron 72.0 ug/dL (65.0-175.0)
== END 2025-07-18 16:41 | disposition home or self-care (01) ==
PROVIDERS: PCP Family Medicine; Visit Provider Family Medicine
DX: D50.9 Iron deficiency anemia, unspecified (principal); Z79.899 Other long term (current) drug therapy
CPT/HCPCS: 36415; 80053; 83540; 85025

== ENCOUNTER 2025-07-27 09:18 | Outpatient (OUT) | payer OTHER, SELFPAY ==
--- OUTSIDE RECORDS SUMMARY | 2025-07-27 09:22 | XMS_ITS | Clinical Summary ---
Author Organization [facility] Address [address] [place] [address] Care Team Providers Care Hardware Test Engineer Name Role Phone Unavailable Primary Care Provider [...]
--- OUTSIDE RECORDS SUMMARY | 2025-07-27 09:22 | XMS_ITS | Encounter Summary ---
Author Organization [facility] Address [address] [place] [address] Care Team Providers Care Refinery Technician Name Role Phone Nomr Wang MD Primary Care Provider [phone] Luis Antonio García MD Unavailable [phone] Source Comments In the event this information is protected by the Federal Confidentiality of Alcohol and Drug AbusePatient Records regulations: The Federal rules restrict any use of the information to criminally investigate or prosecute any alcohol or drug abuse patient.[facility] Reason for Visit * Reason Comments Radiology XR Encounter Details Date Type Department Care Team (Late st Contact Info) Description 03/14/2024 Radiology Radiology [address] [place] [address] Ant Cesar RT(R) Radiology XR Social History [...] is lower risk 8 05/04/2023 Data from: https://www.neighborhoodatlas.medicine.[facility]/. Last address used for calculation Melissa BRAVO [...] PATIENT PRESENTS WITH AN IMPLANTABLE OR ATTACHED USER EXPERIENCE ARCHITECT: No RADIOLOGY DEPARTMENT: General X-ray: Exam(s) Completed: Upper Extremity X- Ray(s): Hand, bilateral PERIPHERAL IV DATA: Not applicable SIGNED BY: RT Haim(R) March 14, 2024 11:11 AM documented in this encounter Plan of Treatment Upcoming Encounters Date Type Department Care Team (Late st Contact Info) Description 10/31/2025 10:00 AM EST Office Visit Rheumatology [address] [place], [place] [phone] Darrian Dubon MD [address] [place], [place] [phone] Please also offer another apt later in 2024 or early 2025 (please use 30 min slot) for RA/OP documented as of this encounter Visit Diagnoses Not on filedocumented in this encounter Care Teams Refinery Technician Relationship Specialty Start Date End Date Norm Wang MD PCP - General Family Medicine 01/18/14 Luis Antonio García MD [address] [place] [address] Referring Internal Medicine 06/23/25 documented as of this encounter
--- OUTSIDE RECORDS SUMMARY | 2025-07-27 09:22 | XMS_ITS | Encounter Summary ---
Author Organization [facility] Address [address] [place] [address] Care Team Providers Care Special Agent Group Insurance Name Role Phone Norm Wang MD Primary Care Provider [phone] Luis Antonio García MD Unavailable [phone] Source Comments In the event this information is protected by the Federal Confidentiality of Alcohol and Drug AbusePatient Records regulations: The Federal rules restrict any use of the information to criminally investigate or prosecute any alcohol or drug abuse patient.[facility] Encounter Details Date Type Department Care Team (Late st Contact Info) Description 10/08/2015 Patient Msg Medical Records [address] [place] [address] Provider, Ccf results Social History Tobacco Use [...] AM EST Office Visit Rheumatology [address] [facility] [address] [facility] [place] [address] Darrian Dubon MD [address] [facility] [place] [address] Please also offer another apt later in 2024 or early 2025 (please use 30 min slot) for RA/OP documented as of this encounter Visit Diagnoses Not on filedocumented in this encounter Care Teams Special Agent Group Insurance Relationship Specialty Start Date End Date Norm Wang MD PCP - General Family Medicine 01/18/14 Luis Antonio García MD [address] [place] [address] Referring Internal Medicine 06/23/25 documented as of this encounter
--- OUTSIDE RECORDS SUMMARY | 2025-07-27 09:22 | XMS_ITS | Encounter Summary ---
Author Organization [facility] Address [address] [place] [address] Care Team Providers Care Securities Lending Trader Name Role Phone Norm Wang MD Primary Care Provider [phone] Encounter Details Date Type Department Care Team (Late Contact Info) Description 04/06/2023 Abstract [facility] [address] [place] [address] Catracho Gross, DO [address] [place] [address] Social History Tobacco Use Types Packs/Day Years [...] Office Visit [facility] [address] [place] [address] Jr. Elias Veliz, DO [address] [place] [address] 05/02/2026 10:00 AM EDT Office Visit [facility] [address] [place] [address] Jr. Elias Veliz, DO [address] [place] [address] documented as of this encounter Visit Diagnoses Not on filedocumented in this encounter Care Teams Securities Lending Trader Relationship Specialty Start Date End Date Norm Wang MD PCP - General Family Medicine 04/21/23 documented as of this encounter
--- OUTSIDE RECORDS SUMMARY | 2025-07-27 09:22 | XMS_ITS | Clinical Summary ---
Author Organization [facility] Address [address] [place] [address] Care Team Providers Care Fence Rider Name Role Phone Norm Wang MD Primary Care Provider [phone] Luis Antonio García MD Unavailable [phone] Allergies No known active allergies Medications ezetimibe [...] mouth every afternoon. 3 11/02/20 23 Discontinued( Hollow Tile Partition Erector Duplicate Med) Active Problems Problem Noted Date Diagnosed Date Osteoporosis 10/19/2018 Ulcerative pancolitis 02/05/2017 Encounter for monitoring of etanercept therapy 0 02/07/2016 Vitamin D deficiency 10/05/2015 Rheumatoid arthritis with positive rheumatoid fa ctor 09/12/2015 Encounters Date Type Department Care Team Description 06/23/2025 Transcribe Orders Referring Physician [facility] [place] [address] Luis Antonio García MD Ulcerative colitis without complications, unspecified location (HCC) (Primary Dx) 06/06/2025 8:20 AM EDT Office Visit Rheumatology [address] [place] [place] [address] Spencer Dubon MD Seropositive rheumatoid arthritis (HCC) [...] 11:59 PM EDT Hospital Encounter Radiology [address] [facility] [place] [address] Seropositive rheumatoid arthritis (HCC) [M05.9] Discharge Disposition: Home 05/23/2025 Travel from Last 3 Months Immunizations Immunization [...] is lower risk 8 05/04/2023 Data from: https://www.neighborhoodatlas.[facility]/. Last address used for calculation [address] [...] AM EST Office Visit Rheumatology [address] [facility] [place] [address] Spencer Dubon MD [address] [facility], [place] [phone] Please also offer another apt later in [...] Pneumococcal Vaccine: 50+ (3 of 3 - PCV20 or PCV21) 05/03/2020 11/01/2015, 05/03/2015 RSV Vaccine (1 - Risk 60-74 years 1-dose series) 2024 Medicare Advantage Annual We llness Visit 11/16/2024 Influenza Vaccine (#1) 2025 , 09/27/2020, 10/28/2019, Additional history exists Diabetes Screening 12/01/2026 12/01/2023, 1 , 02/10/2019, Additional history exists Shingrix Vaccine Completed 06/09/2022, 03/17/2022 Hepatitis C Screening Completed 12/01/2023, 015 Procedures Procedure Name Priority Date/Time Associated Diagnosis [...] (06/06/2025 8:13 AM EDT) LOWEST T-SCORE -2.1 [facility] Anatomical Region Laterality Modality Other [...] FOR MORE INFORMATION ABOUT DIAGNOSIS AND TREATMENT: [facility] Osteoporosis and Metabolic Bone Disease:? www.ccf.org/arthritis/osteo National Osteoporosis Foundation:? www.nof.org International Society of Clinical Densitometry www.iscd.org Electrical Tech/Project Manager: [id number] Transcribe Date/Time: Jun 06 2025 8:19A Dictated by : SPENCER DUBON MD This examination was interpreted and the report reviewed and electronically signed by: SPENCER DUBON MD on Jun 12 2025 5:22PM EST Narrative 06/12/2025 5:24 PM EDT * * *Final Report* * * DATE OF EXAM: Jun 06 2025 8:13AM [facility] 0801 - BD DXA TRABECLR BONE SCORE (TBS) / PROCEDURE REASON: multiple diagnoses * * * * Physician Interpretation * * * * EXAMINATION: DXA BONE DENSITOMETRY BD DXA - AXIAL SKELETON, BD DXA TRABECULAR BONE SCORE (TBS) PATIENT DEMOGRAPHICS: Age: 60 years, Gender: Male SCANNER INFORMATION: DXA Model: Gamify [id number] Date Scanned: 06/06/2025 8:13 AM CLINICAL HISTORY: [...] degraded (1.231 - 1.310) Procedure Note Provider, [facility] [place] - 06/12/2025 * * *Final Report* * [...] years, Gender: Male SCANNER INFORMATION: DXA Model: Gamify [id number] Date Scanned: 06/06/2025 8:13 AM CLINICAL HISTORY: [...] FOR MORE INFORMATION ABOUT DIAGNOSIS AND TREATMENT: [facility] Osteoporosis and Metabolic Bone Disease:? www.ccf.org/arthritis/osteo National Osteoporosis Foundation:? www.nof.org International Society of Clinical Densitometry www.iscd.org Electrical Tech/Project Manager: [id number] Transcribe Date/Time: Jun 06 2025 8:19A Dictated [...] FOR MORE INFORMATION ABOUT DIAGNOSIS AND TREATMENT: [facility] Osteoporosis and Metabolic Bone Disease:? www.ccf.org/arthritis/osteo National Osteoporosis Foundation:? www.nof.org International Society of Clinical Densitometry www.iscd.org Electrical Tech/Project Manager: [id number] Transcribe Date/Time: Jun 06 2025 8:19A Dictated by : SPENCER DUBON MD This examination was interpreted and the report reviewed and electronically signed by: SPENCER DUBON MD on Jun 12 2025 5:22PM EST Narrative 06/12/2025 5:24 PM EDT * * *Final Report* * * DATE OF EXAM: Jun 06 2025 8:13AM [facility] 0804 - BD DXA - AXIAL SKELETON / PROCEDURE REASON: multiple diagnoses * * * * Physician Interpretation * * * * EXAMINATION: DXA BONE DENSITOMETRY BD DXA - AXIAL SKELETON, BD DXA TRABECULAR BONE SCORE (TBS) PATIENT DEMOGRAPHICS: Age: 60 years, Gender: Male SCANNER INFORMATION: DXA Model: Gamify [id number] Date Scanned: 06/06/2025 8:13 AM CLINICAL HISTORY: [...] degraded (1.231 - 1.310) Procedure Note Provider, [facility] [place] - 06/12/2025 * * *Final Report* * [...] years, Gender: Male SCANNER INFORMATION: DXA Model: Gamify [id number] Date Scanned: 06/06/2025 8:13 AM CLINICAL HISTORY: [...] FOR MORE INFORMATION ABOUT DIAGNOSIS AND TREATMENT: [facility] Osteoporosis and Metabolic Bone Disease:? www.ccf.org/arthritis/osteo National Osteoporosis Foundation:? www.nof.org International Society of Clinical Densitometry www.iscd.org Electrical Tech/Project Manager: [id number] Transcribe Date/Time: Jun 06 2025 8:19A Dictated by : SPENCER DUBON MD This examination was interpreted and the report reviewed and electronically signed by: SPENCER DUBON MD on Jun 12 2025 5:22PM EST us Spencer Dubon MD RAD-PAMA Final Resul t * C TELOPEPTIDE, BETA (05/23/2025 8:03 AM EDT) C Telopeptide, Beta Cross Linked 374 132 - 752 pg/mL 05/24/2025 10:58 AM EDT [facility] Blood BLOOD SPECIMEN / Unknown Venipuncture / Unknown 05/23/2025 8:03 AM EDT 05/23/2025 8:03 AM EDT us Spencer Dubon MD LABORATORY Final Resul t [facility] [address] [address], [place] * VITAMIN D 25 HYDROXY (05/23/2025 8:03 AM EDT) Vitamin D 25 Hydroxy 60.0 31.0 - 80.0 ng/mL 05/23/2025 7:58 PM EDT [facility] Blood BLOOD SPECIMEN / Unknown Venipuncture / Unknown 05/23/2025 8:03 AM EDT 05/23/2025 8:03 AM EDT us Spencer Dubon MD LABORATORY Final Resul t [facility] [address] [facility] [address] [place] [id number], * (ABNORMAL) RENAL FUNCTION PANEL (05/23/2025 8:03 AM EDT) Albumin 4.0 3.9 - 4.9 g/dL 05/23/2025 8:39 AM EDT [facility] Calcium, Total 9.5 8.5 - 10.2 mg/dL 05/23/2025 8:39 AM EDT [facility] Phosphorus 2.3(L) 2.7 - 4.8 mg/dL 05/23/2025 8:39 AM EDT [facility] Glucose 135(H) 74 - 99 mg/dL 05/23/2025 8:39 AM EDT [facility] Comment: The [place] Diabetes Association (ADA) provides guidance for cutoff [...] Standards of Medical Care in Diabetes 2016, [place] Diabetes Association. Diabetes Care. 2016.39(Suppl 1). BUN 17 9 - 24 mg/dL 05/23/2025 8:39 AM EDT [facility] Creatinine 0.73 0.73 - 1.22 mg/dL 05/23/2025 8:39 AM EDT [facility] Sodium 140 136 - 144 mmol/L 05/23/2025 8:39 AM EDT [facility] Potassium 4.2 3.7 - 5.1 mmol/L 05/23/2025 8:39 AM EDT [facility] Chloride 105 98 - 107 mmol/L 05/23/2025 8:39 AM EDT [facility] CO2 23 22 - 30 mmol/L 05/23/2025 8:39 AM EDT [facility] Anion Gap 12 8 - 15 mmol/L 05/23/2025 8:39 AM EDT [facility] Estimated Glomerular Filtration Rate 104 >=60 mL/min/1. 73m 05/23/2025 8:39 AM EDT [facility] Comment:Estimated Glomerular Filtration Rate (eGFR) is [...] Spencer Dubon MD LABORATORY Final Resul t [facility] [address] [place] [address] * (ABNORMAL) COMPLETE BLOOD COUNT AND DIFFERENTIAL (05/23/2025 8:03 AM EDT) WBC 7.96 3.70 - 11.00 k/uL 05/23/2025 8:17 AM EDT [facility] RBC 3.86(L) 4.20 - 6.00 m/uL 05/23/2025 8:17 AM EDT [facility] Hemoglobin 11.6(L) 13.0 - 17.0 g/dL 05/23/2025 8:17 AM EDT [facility] Hematocrit 35.9(L) 39.0 - 51.0 % 05/23/2025 8:17 AM EDT [facility] MCV 93.0 80.0 - 100.0 fL 05/23/2025 8:17 AM EDT [facility] MCH 30.1 26.0 - 34.0 pg 05/23/2025 8:17 AM EDT [facility] MCHC 32.3 30.5 - 36.0 g/dL 05/23/2025 8:17 AM EDT [facility] RDW-CV 15.0 11.5 - 15.0 % 05/23/2025 8:17 AM EDT [facility] Platelet Count 337 150 - 400 k/uL 05/23/2025 8:17 AM EDT [facility] MPV 8.4(L) 9.0 - 12.7 fL 05/23/2025 8:17 AM EDT [facility] Neutrophils % 69.1 % 05/23/2025 8:17 AM EDT [facility] Abs Neut 5.50 1.45 - 7.50 k/uL 05/23/2025 8:17 AM EDT [facility] Lymphocytes % 21.2 % 05/23/2025 8:17 AM EDT [facility] Abs Lymph 1.69 1.00 - 4.00 k/uL 05/23/2025 8:17 AM EDT [facility] Monocytes % 9.2 % 05/23/2025 8:17 AM EDT [facility] Abs Towns 0.73 <0.87 k/uL 05/23/2025 8:17 AM EDT [facility] Eosinophils % 0.0 % 05/23/2025 8:17 AM EDT [facility] Abs Eosin <0.03 <0.46 k/uL 05/23/2025 8:17 AM EDT [facility] Basophils % 0.4 % 05/23/2025 8:17 AM EDT [facility] Abs Baso 0.03 <0.11 k/uL 05/23/2025 8:17 AM EDT [facility] Immature Granulocytes % 0.1 % 05/23/2025 8:17 AM EDT [facility] Abs Immature Gran <0.03 <0.10 k/uL 05/23/2025 8:17 AM EDT [facility] NRBC 0.0 /100 WBC 05/23/2025 8:17 AM EDT [facility] Absolute nRBC <0.01 <0.01 k/uL 05/23/2025 8:17 AM EDT [facility] Diff Type Auto 05/23/2025 8:17 AM EDT [facility] Blood BLOOD SPECIMEN / Unknown Venipuncture / Unknown 05/23/2025 8:03 AM EDT 05/23/2025 8:03 AM EDT us Spencer Dubon MD LABORATORY Final Resul t [facility] [address] [place] [address] * (ABNORMAL) C-REACTIVE PROTEIN (05/23/2025 8:03 AM EDT) CRP 3.5(H) <0.9 mg/dL 05/23/2025 5:17 PM EDT [facility] Blood BLOOD SPECIMEN / Unknown Venipuncture / Unknown 05/23/2025 8:03 AM EDT 05/23/2025 8:03 AM EDT us Spencer Dubon MD LABORATORY Final Resul t [facility] [address] [facility] [address] [place] [address], [place] * (ABNORMAL) COMP METABOLIC PANEL (12/01/2023 5:00 PM EST) Pathologist [facility] Protein, Total 8.0 6.3 - 8.0 g/dL 12/02/2023 6:09 AM EST [facility] Albumin 3.9 3.9 - 4.9 g/dL 12/02/2023 6:09 AM EST [facility] Calcium, Total 10.2 8.5 - 10.2 mg/dL 12/02/2023 6:09 AM EST [facility] Bilirubin, Total 0.3 0.2 - 1.3 mg/dL 12/02/2023 6:09 AM EST [facility] Alkaline Phosphatase 171(H) 38 - 113 U/L 12/02/2023 6:09 AM EST [facility] AST 31 14 - 40 U/L 12/02/2023 6:09 AM EST [facility] ALT 22 10 - 54 U/L 12/02/2023 6:09 AM EST [facility] Glucose 101(H) 74 - 99 mg/dL 12/02/2023 6:09 AM EST [facility] Comment: The [place] Diabetes Association (ADA) provides guidance for cutoff [...] Standards of Medical Care in Diabetes 2016, [place] Diabetes Association. Diabetes Care. 2016.39(Suppl 1). BUN 19 9 - 24 mg/dL 12/02/2023 6:09 AM EST [facility] Creatinine 0.92 0.73 - 1.22 mg/dL 12/02/2023 6:09 AM EST [facility] Sodium 143 136 - 144 mmol/L 12/02/2023 6:09 AM [facility] Potassium 4.1 3.7 - 5.1 mmol/L 12/02/2023 6:09 AM EST [facility] Chloride 106(H) 97 - 105 mmol/L 12/02/2023 6:09 AM EST [facility] CO2 25 22 - 30 mmol/L 12/02/2023 6:09 AM [facility] Anion Gap 12 9 - 18 mmol/L 12/02/2023 6:09 AM [facility] Estimated Glomerular Filtration Rate 96 >=60 mL/min/1.7 3m 12/02/2023 6:09 AM [facility] Comment:Estimated Glomerular Filtration Rate (eGFR) [...] 12/01/2023 5:02 PM EST us Nidia Ascencio HARD METALS ENGRAVER HAND.ASSEMBLER FINAL LABORATORY Final Res ult [facility] [address] [place] [address], * HEPATITIS C ANTIBODY IA WITH CONFIRMATION (12/01/2023 5:00 PM EST) Hep C Antibody IA Negative Negative 12/02/2023 9:58 AM EST [facility] Comment:The result suggests no evidence of active infection with Hepatitis C virus. Should recent infection be suspected, repeat testing may be considered 4-6 weeks after this draw. Blood BLOOD SPECIMEN / Unknown Venipuncture / Unknown 12/01/2023 5:00 PM EST 12/01/2023 5:02 PM EST us Nidia Ascencio HARD METALS ENGRAVER HAND.ASSEMBLER FINAL LABORATORY Final Res ult [facility] [address] [address], [place] from Last 3 Months or Most Recently Relevant to Health Maintenance [facility] Care Teams Fence Rider Relationship Specialty Start Date End Date Norm Wang MD PCP - General Family Medicine 01/18/14 Luis Antonio García MD [address] [place] [address] [address] [place] [address] Referring Internal Medicine 06/23/25
--- OUTSIDE RECORDS SUMMARY | 2025-07-27 09:22 | XMS_ITS | Clinical Summary ---
Author Organization [facility] Address [address] [place] [address] Care Team Providers Care Makeup Instructor Name Role Phone Norm Wang MD Primary Care Provider [phone] Allergies Active Allergy Reactions Criticality Noted Date [...] Description 05/03/2025 10:10 AM EDT Ancillary Procedure [facility] [address] [place] [address] 05/03/2025 10:05 AM EDT Ancillary Procedure [facility] [address] [place] [address] 05/03/2025 10:00 AM EDT Office Visit [facility] [address] [place] [address] Jr. Elias Veliz, DO Pain and swelling of right knee (Primary Dx); History of total left knee replacement; History of total right knee replacement; Pain and swelling of left knee 05/03/2025 Bamboo flowsheet [facility] [address] [place] [address] Jr. Elias Veliz DO 05/03/2025 Travel from Last 3 Months Immunizations Immunization [...] Description 03/28/2026 10:00 AM EDT [facility] [address] [place] [address] Jr. Elias Veliz, DO [address] [facility] [address] [place] [address] 05/02/2026 10:00 AM EDT Office Visit [facility] [address] [place] [address] Jr. Elias Veliz, DO [address] [facility] [address] [place] [address] Health Maintenance Due Date Last Done Comments [...] EDT History of total right knee replacement from Last 3 Months Results * XR [...] right total knee arthroplasty. Jr. Elias Veliz IMG XR PROCEDURES Final Result * XR [...] 3 Months Insurance [employer] Care Teams Makeup Instructor Relationship Specialty Start Date End Date Norm Wang MD PCP - General Family Medicine 04/21/23
--- OUTSIDE RECORDS SUMMARY | 2025-07-27 09:26 | XMS_ITS | CCD ---
Author Organization [facility] Care Team Providers Care Underliner Name Role Phone Rigo Gonzalez Attending Provider Jose L Lackey Primary Care Provider [phone] Jose L Lackey MD Primary Care Provider [phone] Jose L Lackey MD Primary Care Provider [phone] ZIYAD ., DR DOMINGO Primary Care Unavailable HOY ., DR DOMINGO Consulting Unavailable HOY ., DR DOMINGO Attending Unavailable HOY ., DR DOMINGO Admitting Unavailable BOSWELL, DR KALEIGH Strong Consulting Unavailable HOY ., [...] Jose L Lackey MD Primary Care Provider [phone] Luis Antonio García Attending Unavaila Luis Antonio Bowden Admitting Unavaila Jose L Correa MD Primary Care Provider [phone] JR. EVERETT, BRADLY Watters Attending Unavaila karen VELIZ JR., BRADLY Watters Referring Unavaila karen VELIZ JR., BRADLY Watters Attending Unavaila karen VELIZ JR., BRADLY Watters Referring Unavaila ble Luis Antonio García Admitting Unavaila ble Luis Antonio García Attending Unavaila Marcin Licea Admitting Unavailable Marcin RAMÍREZ Attending Unavailable Luis Atnonio García Attending Unavaila JOSE L Correa Primary [...] Medication Allergies] Propensity to adverse reactions (disorder) [facility] Repository (6 sources) beta Sitosterol / [...] on above: TAKE 1 CAPSULE BY MO [facility] 4 TIMES A DAY ezetimibe 10 mg [...] Comment on above: Take 1 tablet by [facility] every 12 hours. folic acid 1 [...] in am, 3 noon, 2 pm), per capacity planning engineer 0 Active Comment on above: Take by mouth. takes 8 pills a days, divided three times daily (3 in am, 3 noon, 2 pm), per capacity planning engineer TAKE 2 TABLETS BY MO [facility] 4 [...] mg subcutaneously every 2 weeks. Prescribed by Route Service Representative : Nel Lebron MD Previously prescr. by Ronald Brown MD 0 02/18/2021 05/04/2023 Discontinued Comment on above: Inject 40 mg subcuta neously every 2 weeks. Prescribed by Route Service Representative : Nle Lebron MD Previously prescr. by Ronald Brown [...] 02-07-2016 Episodic Other aftercare (2 sources) Other termite control representative (current) drug therapy; Translations: [OTH RENTAL CAR PORTER CURRENT DRUG THERAPY] Onset: 09-26-2022 Episodic Other aftercare (5 sources) Drug therapy finding; Translations: [Other half-way (current) drug therapy] Episodic Other bone disease [...] peds scope (clear cap for both) Normal [facility] Gastroenterology Office/Clin ic Noteon 06-22-2025 Gastroenterology Office/Clinic [...] examine duodenum well including papilla Assessment/Plan 1. [place] ulcerative colitis (K51.00: Ulcerative (chronic) pancolitis without [...] he prefers to stay at [facility] Colonoscopy 04/2025 showed full remission. Biopsies did not show active inflammation, did show TA from rectal and rectosigmoid colon biopsy, HP from sigmoid polyp He also has RA, was following with Dr. Valente at [place], prescribed sulfasalazine, methotrexate. Currently his PCP is prescribing his medication. Recommended he continue to see rheumatology. 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 We discussed lifestyle modifications including Mediterranean diet and exercise Discussed health maintenance as well including vaccinations, getting his DEXA scan with Dr. Tatum and osteoporosis therapy - Schedule Colonoscopy in September to evaluate. Discussed risks such as bleeding, injury and perforation as well as benefits. Patient agreeable. - Referred to rheumatology at [facility] 2. History of colon polyps (Z86.0100: Personal [...] Gross hematuria (more content not included)... Normal [facility] Comment on above: Result Comment: Elec tronically Signed By: Jeannine Santizo MA\.br\Date and Time Signed: 06/21/25 10:40 EDT\.br\Electronically Co-Signed By: Luis Antonio García MD\.br\Date and Time Co-Signed: 06/22/25 11:13 EDT Ambulatory Visit Summaryon 0 06-21-2025 Ambulatory Visit Summary Ambulatory Visit Summary JAM TOSCANO :1965 Visit Date:06/21/2025 Ambulatory Visit Instructions Your Diagnosis [place] ulcerative colitis History of colon polyps Elevated [...] Someone Will Contact You Regarding These Appointments [facility] External Ambulatory Referral, Rheumatology, 06/21/25 10:35:00 EDT, [place] ulcerative colitis History of colon polyps Elevated [...] PSA (prostate specific antigen) Ulcerative colitis, universal [place] ulcerative colitis Ureteral stone with hydronephrosis Urethral [...] and ot (more content not included)... Normal [facility] BD DXA - AXIAL SKELETONon BD DXA [...] years, Gender: Male SCANNER INFORMATION: DXA Model: ClickGanic [id number] Date Scanned: 06/06/2025 8:13 AM CLINICAL HISTORY: [...] FOR MORE INFORMATION ABOUT DIAGNOSIS AND TREATMENT: [facility] for Osteoporosis and Metabolic Bone Disease:? www.ccf.org/arthritis/osteo National Osteoporosis Foundation:? www.nof.org International Society of Clinical Densitometry www.iscd.org Agronomy Location Manager: [id number] Transcribe Date/Time: Jun 06 2025 8:19A Dictated by : DARRIAN DUBON MD This examination was interpreted and the report reviewed and electronically signed by: DARRIAN DUBON MD on Jun 12 2025 5:22PM EST [id number] -2.1 Normal [facility] BD DXA TRABECLR BONE SCORE ( TBS)on [...] years, Gender: Male SCANNER INFORMATION: DXA Model: ClickGanic [id number] Date Scanned: 06/06/2025 8:13 AM CLINICAL HISTORY: [...] FOR MORE INFORMATION ABOUT DIAGNOSIS AND TREATMENT: [facility] Osteoporosis and Metabolic Bone Disease:? www.ccf.org/arthritis/osteo National Osteoporosis Foundation:? www.nof.org International Society of Clinical Densitometry www.iscd.org Agronomy Location Manager: [id number] Transcribe Date/Time: Jun 06 2025 8:19A Dictated by : DARRIAN DUBON MD This examination was interpreted and the report reviewed and electronically signed by: DARRIAN DUBON MD on Jun 12 2025 5:22PM EST [id number] -2.1 Normal [facility] CNOVon 06-06-2025 CNOV Office Visit (ANGEL ) JAM TOSCANO ([id number]) 1965 M Date Time Provider Department 06/06/25 8:20 AM DARRIAN DUBON During your visit today, we recorded the following information about you: Pulse Blood pressure Weight 66/minute 124/62 75.3 kg Darrian Dubon MD 06/07/2025 3:19 PM Signed FOLLOW UP VISIT Patient's Name: Jam Erwin [facility] [address] PCP: Jose L Lackey MD [address] [place] [phone] Consult Requested by: Jose L Lackey MD [address] [place] [id number] Other physicians: Route Service Representative prev. Nel Lebron MD (his prev. capacity planning engineer left- Ronald Brown MD) ; Now following with Dr. Luis Antonio García Accompanied by: self Interim history: is here for f/u RA and OP Recording using Swank software for draft documentation of the visit was discussed with the patient/authorized traveling representative; all questions welcomed and answered. Patient/authorized traveling representative agreed to proceed Reports doing fine today, but this would be his last apt. 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 He has also been seeking local yardage tufting machine operator closer to home for him. This is [...] He is still undergoing evaluation by his capacity planning engineer for his IBD disease activity. He has been on Entyvio. States he has gastrointestinal evaluation by his capacity planning engineer and states - Undergoing capsule endoscopy tomorrow to evaluate small intestine for potential tumors or bleeding. - Recent colonoscopy showed small benign tumors. States told his tumors were benign But still needs the camera States because he is bleeding and requiring His PCP and Route Service Representative are addressing his anemia and further evaluating He had iron infusion 05/26/2025 States he is on potassium and iron infusion by his Primary care physician States his Primary care physician started him on 4 tbs/wk and is comfortable with that He continues on the sulfasalazine, and states his capacity planning engineer prescribes it, as well as the Entyvio. [...] with Gastroenter (more content not included)... Normal [facility] Reminderson 06-06-2025 Reminders Reminders From: Tamiko Garcia I To: [facility] - Reminders/Recalls; Sent: 06/06/2025 07:53:34 EDT Show up: 03/16/2026 07:53:00 EDT Subject: Colonoscopy recall Due Date/Time: 05/11/2026 07:53:00 EDT Reminder/Recall 1 year colon recall - UC Dr. García 05/11/25 Normal [facility] Gastroenterology Office/Clin ic Noteon 05-24-2025 Gastroenterology Office/Clinic Note Gastroenterology Office/Clinic Note Chief Complaint follow up to egd/colonoscopy HPI Staff Established patient is a(n) 60 year old male who presents today for a follow up to EGD & Colonoscopy on 05/11/25. Colon recall needs placed. GI complaints: No. Continues Entyvio subq. serviced through [facility]. Any blood thinners? no Any [...] 90.8 fL (12/14/24) Chloride: 108 mmol/L (12/14/24) [place] Absolute: 0.5 E9/L (12/14/24) CO2: 27 mmol/L (12/14/24) [place] Auto: 7.5 % (12/14/24) Creatinine: 0.8 mg/dL [...] he prefers to stay at [facility] (more content not included)... Normal [facility] Comment on above: Result Comment: Elec tronically Signed By: Jeannine Santizo MA\.br\Date and Time Signed: 05/22/25 09:02 EDT\.br\Electronically Co-Signed By: Luis Antonio García MD\.br\Date and Time Co-Signed: 05/24/25 14:37 EDT 25(OH)D3 [facility] 2024 25-hydroxyvitamin D3 [Mass/Vol] 60.0 ng/mL Normal 31.0-80.0 [facility] Comment on above: Order Comment: Speci men Type: BLOOD SPECIMEN Ordering Facility: [facility] Address: [address] [place] [address] Performed By: #### 1 989-3 #### [facility] CLIA [id number] [address] [place] [address] STATES OF [facility] CBC W Auto Differential pane l (Bld)on 05-23-2025 Basophils (Bld) [#/Vol] 0.03 10*3/uL Normal <0.11 [facility] Comment on above: Order Comment: Speci men Type: BLOOD SPECIMEN Ordering Facility: [facility] Address: [address] [place] [address] Performed By: #### 5 7021-8 #### [facility] CLIA [id number] [address] [place] [address] Basophils/100 WBC (Bld) 0.4 % Normal [facility] Comment on above: Order Comment: Speci men Type: BLOOD SPECIMEN Ordering Facility: [facility] Address: [address] [place] [address] Performed By: #### 5 7021-8 #### [facility] CLIA [id number] [address] [place] [address] Differential cell count method Nom (Bld) Auto Normal [facility] Comment on above: Order Comment: Speci men Type: BLOOD SPECIMEN Ordering Facility: [facility] Address: [address] [place] [address] Performed By: #### 5 7021-8 #### [facility] CLIA [id number] [address] [place] [address] Eosinophils (Bld) [#/Vol] 10*3/uL Normal <0.46 [facility] Comment on above: Order Comment: Speci men Type: BLOOD SPECIMEN Ordering Facility: [facility] Address: [address] [place] [address] Performed By: #### 5 7021-8 #### [facility] CLIA [id number] [address] [place] [address]148 Eosinophils/100 WBC (Bld) 0.0 % Normal [facility] Comment on above: Order Comment: Speci men Type: BLOOD SPECIMEN Ordering Facility: [facility] Address: [address] [place] [address] Performed By: #### 5 7021-8 #### [facility] CLIA [id number] [address] [place] [address]71 Erythrocyte distribution width (RBC) [Ratio] 15.0 % Normal 11.5-15.0 [facility] Comment on above: Order Comment: Speci men Type: BLOOD SPECIMEN Ordering Facility: [facility] Address: [address] [place] [address] Performed By: #### 5 7021-8 #### [facility] CLIA [id number] [address] [place] [address] Hematocrit (Bld) [Volume fraction] 35.9 % Low 39.0-51.0 [facility] Comment on above: Order Comment: Speci men Type: BLOOD SPECIMEN Ordering Facility: [facility] Address: [address] [place] [address] Performed By: #### 5 7021-8 #### [facility] CLIA [id number] [address] [place] [address]67 Hemoglobin (Bld) [Mass/Vol] 11.6 g/dL Low 13.0-17.0 [facility] Comment on above: Order Comment: Speci men Type: BLOOD SPECIMEN Ordering Facility: [facility] Address: [address] [place] [address] Performed By: #### 5 7021-8 #### [facility] CLIA [id number] [address] [place] [address] Immature granulocytes (Bld) [#/Vol] 10*3/uL Normal <0.10 [facility] Comment on above: Order Comment: Speci men Type: BLOOD SPECIMEN Ordering Facility: [facility] Address: [address] [place] [address] Performed By: #### 5 7021-8 #### [facility] CLIA [id number] [address] [place] [address]657 Immature granulocytes/100 WBC (Bld) 0.1 % Normal [facility] Comment on above: Order Comment: Speci men Type: BLOOD SPECIMEN Ordering Facility: [facility] Address: [address] [place] [address] Performed By: #### 5 7021-8 #### [facility] CLIA [id number] [address] [place] [address]28 Lymphocytes (Bld) [#/Vol] 1.69 10*3/uL Normal 1.00-4.00 [facility] Comment on above: Order Comment: Speci men Type: BLOOD SPECIMEN Ordering Facility: [facility] Address: [address] [place] [address] Performed By: #### 5 7021-8 #### [facility] CLIA [id number] [address] [place] [address] 33751 Lymphocytes/100 WBC (Bld) 21.2 % Normal [facility] Comment on above: Order Comment: Speci men Type: BLOOD SPECIMEN Ordering Facility: [facility] Address: [facility] [place] [address] Performed By: #### 5 7021-8 #### [facility] CLIA [id number] [address] [place] [address]449 MCH (RBC) [Entitic mass] 30.1 pg Normal 26.0-34.0 [facility] Comment on above: Order Comment: Speci men Type: BLOOD SPECIMEN Ordering Facility: [facility] Address: [address] [place] [address] Performed By: #### 5 7021-8 #### [facility] CLIA [id number] [address] [place] [address] 69385 MCHC (RBC) [Mass/Vol] 32.3 g/dL Normal 30.5-36.0 [facility] Comment on above: Order Comment: Speci men Type: BLOOD SPECIMEN Ordering Facility: [facility] Address: [address] [place] [address] Performed By: #### 5 7021-8 #### [facility] CLIA [id number] [address] [place] [address] 21059 MCV (RBC) [Entitic vol] 93.0 fL Normal 80.0-100.0 [facility] Comment on above: Order Comment: Speci men Type: BLOOD SPECIMEN Ordering Facility: [facility] Address: [address] [place] [address] Performed By: #### 5 7021-8 #### [facility] CLIA [id number] [address] [place] [address]124 Monocytes (Bld) [#/Vol] 0.73 10*3/uL Normal <0.87 [facility] Comment on above: Order Comment: Speci men Type: BLOOD SPECIMEN Ordering Facility: [facility] Address: [address] [place] [address] Performed By: #### 5 7021-8 #### [facility] CLIA [id number] [address] [place] [address] Monocytes/100 WBC (Bld) 9.2 % Normal [facility] Comment on above: Order Comment: Speci men Type: BLOOD SPECIMEN Ordering Facility: [facility] Address: [address] [place] [address] Performed By: #### 5 7021-8 #### [facility] CLIA [id number] [address] [place] [address] Neutrophils (Bld) [#/Vol] 5.50 10*3/uL Normal 1.45-7.50 [facility] Comment on above: Order Comment: Speci men Type: BLOOD SPECIMEN Ordering Facility: [facility] Address: [address] [place] [address] Performed By: #### 5 7021-8 #### [facility] CLIA [id number] [address] [place] [address] 52718 Neutrophils/100 WBC (Bld) 69.1 % Normal [facility] Comment on above: Order Comment: Speci men Type: BLOOD SPECIMEN Ordering Facility: [facility] Address: [address] [place] [address] Performed By: #### 5 7021-8 #### [facility] CLIA [id number] [address] [place] [address] 48618 Nucleated RBC (Bld) [#/Vol] 10*3/uL Normal <0.01 [facility] Comment on above: Order Comment: Speci men Type: BLOOD SPECIMEN Ordering Facility: [facility] Address: [address] [place] [address] Performed By: #### 5 7021-8 #### [facility] CLIA [id number] [address] [place] [address]3064 Nucleated RBC/100 WBC (Bld) [Ratio] 0.0 /100 WBC Normal [facility] Comment on above: Order Comment: Speci men Type: BLOOD SPECIMEN Ordering Facility: [facility] Address: [address] [place] [address] Performed By: #### 5 7021-8 #### [facility] CLIA [id number] [address] [place] [address]292 Platelet mean volume (Bld) [Entitic vol] 8.4 fL Low 9.0-12.7 [facility] Comment on above: Order Comment: Speci men Type: BLOOD SPECIMEN Ordering Facility: [facility] Address: [address] [place] [address] Performed By: #### 5 7021-8 #### [facility] CLIA [id number] [address] [place] [address]307 Platelets (Bld) [#/Vol] 337 10*3/uL Normal 150-400 [facility] Comment on above: Order Comment: Speci men Type: BLOOD SPECIMEN Ordering Facility: [facility] Address: [address] [place] [address] Performed By: #### 5 7021-8 #### [facility] CLIA [id number] [address] [place] [address]4311 RBC (Bld) [#/Vol] 3.86 10*6/uL Low 4.20-6.00 [facility] Comment on above: Order Comment: Speci men Type: BLOOD SPECIMEN Ordering Facility: [facility] Address: [address] [place] [address] Performed By: #### 5 7021-8 #### [facility] CLIA [id number] [address] [place] [address] 25495 WBC (Bld) [#/Vol] 7.96 10*3/uL Normal 3.70-11.00 [facility] Comment on above: Order Comment: Speci men Type: BLOOD SPECIMEN Ordering Facility: [facility] Address: [address] [place] [address] Performed By: #### 5 7021-8 #### [facility] CLIA [id number] [address] [place] [address] 14969 CRP SerPl-mCncon 05-23-2025 CRP [Mass/Vol] 3.5 mg/dL High <0.9 [facility] Comment on above: Order Comment: Speci men Type: BLOOD SPECIMEN Ordering Facility: [facility] Address: [address] [place] [address] Performed By: #### 2 4362-6 #### [facility] CLIA [id number] [address] [place] [address]55 Collagen crosslinked C-telop eptide [Mass/Vol]on 05-23-2025 C TELOPEPTIDE, BETA CROSS LINKED 374 pg/mL Normal 132-752 [facility] Comment on above: Order Comment: Speci men Type: BLOOD SPECIMEN Ordering Facility: [facility] Address: [address] [place] [address] Performed By: #### 4 1171-0 #### [facility] CLIA [id number] [address] [place] [address] STATES OF [place] Renal function [facility] panelon 05-23-2025 Albumin [Mass/Vol] 4.0 g/dL Normal 3.9-4.9 [facility] Comment on above: Order Comment: Speci men Type: BLOOD SPECIMEN Ordering Facility: [facility] Address: [address] [place] [address] Performed By: #### 2 4362-6 #### [facility] CLIA [id number] [address] [place] [address] 12850 Anion gap [Moles/Vol] 12 mmol/L Normal 8-15 [facility] Comment on above: Order Comment: Speci men Type: BLOOD SPECIMEN Ordering Facility: [facility] Address: [address] [place] [address] Performed By: #### 2 4362-6 #### [facility] CLIA [id number] [address] [place] [address] 00999 Calcium [Mass/Vol] 9.5 mg/dL Normal 8.5-10.2 [facility] Comment on above: Order Comment: Speci men Type: BLOOD SPECIMEN Ordering Facility: [facility] Address: [address] [place] [address] Performed By: #### 2 4362-6 #### [facility] CLIA [id number] [address] [place] [address] Chloride [Moles/Vol] 105 mmol/L Normal 98-107 [facility] Comment on above: Order Comment: Speci men Type: BLOOD SPECIMEN Ordering Facility: [facility] Address: [address] [place] [address] Performed By: #### 2 4362-6 #### [facility] CLIA [id number] [address] [place] [address] CO2 [Moles/Vol] 23 mmol/L Normal 22-30 [facility] Comment on above: Order Comment: Speci men Type: BLOOD SPECIMEN Ordering Facility: [facility] Address: [address] [place] [address] Performed By: #### 2 4362-6 #### [facility] CLIA [id number] [address] [place] [address] 31160 Creatinine [Mass/Vol] 0.73 mg/dL Normal 0.73-1.22 [facility] Comment on above: Order Comment: Speci men Type: BLOOD SPECIMEN Ordering Facility: [facility] Address: [address] [place] [address] Performed By: #### 2 4362-6 #### [facility] CLIA [id number] [address] [place] [address]71 Creatinine and Glomerular filtration rate.predicted panel (S/P/Bld) 104 mL/min/1.73m??? Normal >=60 [facility] Comment on above: Order Comment: Speci men Type: BLOOD SPECIMEN Ordering Facility: [facility] Address: [address] [place] [address] Result Comment: Fauzia mated Glomerular Filtration Rate [...] GFR. Performed By: #### 2 4362-6 #### [facility] CLIA [id number] [address] [place] [address] Glucose [Mass/Vol] 135 mg/dL High 74-99 [facility] Comment on above: Order Comment: Quinn felder Type: BLOOD SPECIMEN Ordering Facility: [facility] Address: [address] [place] [address] Result Comment: The [place] [employer] (ADA) provides guidance for cutoff [...] Standards of Medical Care in Diabetes 2016, [place] [employer]. Diabetes Care. 2016.39(Suppl 1). Performed By: #### 2 4362-6 #### [facility] CLIA [id number] [address] [place] [address] 35441 Phosphate [Mass/Vol] 2.3 mg/dL Low 2.7-4.8 [facility] Comment on above: Order Comment: Quinn felder Type: BLOOD SPECIMEN Ordering Facility: [facility] Address: [address] [place] [address] Performed By: #### 2 4362-6 #### [facility] CLIA [id number] [address] [place] [address] Potassium [Moles/Vol] 4.2 mmol/L Normal 3.7-5.1 [facility] Comment on above: Order Comment: Quinn felder Type: BLOOD SPECIMEN Ordering Facility: [facility] Address: [address] [place] [address] Performed By: #### 2 4362-6 #### [facility] CLIA [id number] [address] [place] [address] Sodium [Moles/Vol] 140 mmol/L Normal 136-144 [facility] Comment on above: Order Comment: Speci men Type: BLOOD SPECIMEN Ordering Facility: [facility] Address: [address] [place] [address] Performed By: #### 2 4362-6 #### [facility] CLIA [id number] [address] [place] [address] Urea nitrogen [Mass/Vol] 17 mg/dL Normal 9-24 [facility] Comment on above: Order Comment: Speci men Type: BLOOD SPECIMEN Ordering Facility: [facility] Address: [address] [place], [place] [address] Performed By: #### 2 4362-6 #### [facility] CLIA [id number] [address] [place] [address] Ambulatory Visit Summaryon 0 05-22-2025 Ambulatory Visit [...] Follow Up with Ricky ROBLERO, SHAZIA Velasco, [facility] When: In 3 months Where: [address] [place] [address] [place], [address] [phone] [phone] Medications What How Much When Instructions Unchanged [...] PSA (prostate specific antigen) Ulcerative colitis, universal [place] ulcerative colitis Ureteral stone with hydronephrosis Urethral [...] signed up for this yet, please contact [employer] at [phone] to get signed up today. Language Information Language assist (more content not included)... Normal [facility] Surgical Pathology Reporton 05-16-2025 Surgical Pathology Report [facility] [address] [place] [address]- Surgical Pathology Report Collected Date/Time: 05/11/2025 09:14 [...] is entirely submitted in one cassette. (DC) DC:[facility] Microscopic Description The use of one or more reagents in the above tests is regulated as an analyte specific reagent (ASR). The test or tests are ordered following initial H&E microscopic examination. The performance characteristics were determined by the [facility]. The (more content not included)... Normal [facility] Comment on above: Performed By: #### 4 [id number] #### [facility] [address] [place] [address] Main OR Intraoperative Recor don 05-12-2025 Main OR Intraoperative Record Main OR Intraoperative Record IntraOp Document Type FT Summary Primary Physician: Luis Antonio García MD Finalized Date/Time: 05/12/25 09:28:01 Pt. Name: JAM TOSCANO./Sex: 1965 Male Med Rec #: [id number] Physician: Ricky ROBLERO, Luis Antonio Tiwari Financial #: [id number] Pt. Type: O Room/Bed: / Admit/Disch: 05/11/25 [...] Wallace RN, Jennifer Flores Role Performed Anesthesiologist Police Patrol Officer - Primary Scrub - Primary Humane Agent Time In 05/11/25 09:02:00 05/11/25 09:02:00 05/11/25 [...] Participants Rosanna Wallace RN, Jennifer Ellis, Jeniffer MUSIC TEACHER, Ricky Sylvester MD, Luis Antonio Tiwari Time [...] and tissue Entry 1 Skin Integrity Intact, [place], Warm, & Skin Abnormality No Dry Outcomes Met? Yes Last Modified By: Rodrigo RAMESH, (more content not included)... Normal [facility] Discharge Instructionson Discharge Instructions Discharge Instructions ARNULFOJAM [...] With: Ricky ROBLERO, Luis Antonio Tiwari Where: [facility] [address] [place] [address]- New Follow Up Appointments after Discharge Follow Up with Ricky ROBLERO, Luis Antonio Tiwari, [facility], [facility] When: Comments: office will call for follow up Where: [address], [address] [phone] Medications What How Much When Instructions Next [...] PSA (prostate specific antigen) Ulcerative colitis, universal [place] ulcerative colitis Ureteral stone with hydronephrosis Urethral [...] activities are safe for you. ??? Take xaon-awf-ocayokl and prescription medicines only as told by your health care provider. Contact (more content not included)... Normal [facility] Comment on above: Result Comment: Elec tronically Signed By: Jose RAMESH, Mary Lou\.sania\Date and Time Signed: 05/11/25 09:53 EDT Main OR PACU I Recordon 04-17 Main OR PACU I Record Main OR PACU I Record PACU Phase I Document Type FT Summary Primary Physician: Luis Antonio García MD Finalized Date/Time: 05/11/25 10:51:19 Pt. Name: JAM TOSCANO/Sex: 1965 Male Med Rec #: [id number] Physician: Luis Antonio García MD Financial #: [id number] Pt. Type: O Room/Bed: / Admit/Disch: 05/11/25 [...] Mary Lou Garcia RN 05/11/25 10:51 Normal [facility] Main OR Preoperative Recordo n 05-11-2025 Main OR Preoperative Record Main OR Preoperative Record Holding Area Document Type FT Summary Primary Physician: Luis Antonio García MD Finalized Date/Time: 05/11/25 08:28:46 Pt. Name: JAM TOSCANO Angel Ochoa/Sex: 1965 Male Med Rec #: [id number] Physician: Luis Antonio García MD Financial #: [id number] Pt. Type: O Room/Bed: / Admit/Disch: 05/11/25 [...] Obdulia Del Toro RN 05/11/25 08:28 Normal [facility] No Panel Informationon 05-03 Radiology Study observation (narrative) [facility] XR Knee - left 1 or 2 [...] dislocation. Impression: Unremarkable left total knee arthroplasty. [facility] XR Knee - right 1 or 2 [...] dislocation. Impression: Unremarkable right total knee arthroplasty. [facility] XR Hip - right 3 [facility] [...] dislocation. Impression: Unremarkable right total hip arthroplasty. [facility] Radiology Study observation (narrative) [facility] CNOVon 02-14-2025 CNOV Office Visit (ANGEL ) JAM TOSCANO ([id number]) 1965 M Date Time Provider Department 02/14/25 7:20 AM DARRIAN DUBON During your visit today, we recorded the following information about you: Pulse Blood pressure Weight 66/minute 134/74 79 kg Darrian Dubon MD 02/20/2025 5:28 PM Signed FOLLOW UP VISIT Patient's Name: Jam [address]win [facility] [address] PCP: Jose L Lackey MD [address] [place] [phone] Consult Requested by: Jose L Lackey MD [address] [place] [address] Other physicians: Route Service Representative prev. Nel Lebron MD (his prev. capacity planning engineer left- Ronald Brown MD) ; Now following [...] BRBPR and denies melena. He follows with Route Service Representative for his UC. States has scopes this summer by his capacity planning engineer. He is following with Orthopedics for his osteoarthroses and non-inflammatory joint pains. He has a chronic rotator cuff tear and extensive bilateral glenohumeral degenerative disease. His s/p b/l TKR and rt THR. Hissed rate was elevated at 79 04/2024 at time of his pneumonia. He continues on sulfasalazine and Entyvio by his capacity planning engineer. He does not describe RA related symptoms No jt pains or swelling outside of the LLE from TKR Denies rheum nodules No stiffness He is on sulfasalazine per capacity planning engineer for his UC and this has been controlling his RA He is pleased with his treatment regimen He also states that his IBD is well controlled, states told is in remission, on Entyvio Doing exercise and working with household personal assistant at the gym and will be going [...] in IBD and is following with local capacity planning engineer for that. Has been on Humira since Sep 2020 (started with 80 mg loading dose and since has been on 40 mg every 2 wks) He was pleased with Enbrel response to his RA and later was switched to Humira, reports has similar benefit and is pleased with response. His capacity planning engineer switched him to Humira for optimal mgt of IBD and he feels this has helped his IBD better. Reports still gets 8 BM's a day, does not have BM at night, does not have to wake up from sleep. Has been following with his capacity planning engineer for his UC Had colonoscopy 11/22/2021 with reported marked improvement in asc/transv/desc colon and severe active in rectum, histopath with active colitis with erosions. States Dr. Lebron has started him on rectal enemas. Recent colonoscopy with reported active colitis. He tells me that he continues to have multiple BM's; His capacity planning engineer prescribed pred. course, completed recently. No jt [...] us, he is on Humira per his Route Service Representative He is off Enbrel, was switched to Humira by his capacity planning engineer. (previously was on Enbrel 25 mg twice a wk and has been in remission since on Enbrel and very pleased with his treatment regimen) He is on Humira 40 mg every 2 wks by his Route Service Representative He is on sulfasalazine, Humira and mesalamine enemas per his capacity planning engineer I have reviewed benefits of a whole food plant based diet He consumes dairy, cheese, sausage, hamburger. I have advised him on avoiding meats and dairy and reviewed reports and patient experience with flare of IBD and RA, as well as gastrointestinal dysbiosis. (more content not included)... Normal [facility] Quantiferon-TB Plus (Client Incubated)on 12-16-2024 Gamma interferon background IA Qn (Bld) 0.09 International_Unit/mL Invalid Interpretation Code [facility] Comment on above: Performed By: #### 1 [id number] #### [facility] [address] [place] [address] M. tuberculosis stim IFN-g by CD4+ CD8+ T-cells corrected for background Qn (Bld) 0.07 International_Unit/mL Invalid Interpretation Code [facility] Comment on above: Performed By: #### 1 [id number] #### [facility] [address] [place] [address] M. tuberculosis stim IFN-g by CD4+ T-cells corrected for background Qn (Bld) 0.07 International_Unit/mL Invalid Interpretation Code [facility] Comment on above: Performed By: #### 1 [id number] #### [facility] [address] [place] [address] M. tuberculosis stim IFN-g Ql (Bld) [Interp] Negative Invalid Interpretation Code Negative [facility] Comment on above: Result Comment: No [...] interferon gamma. Chemiluminescence immunoassay methodology Performed at: [facility] [address] [place] [id number] PhD Tarun Olivas Performed By: #### 1 [id number] #### [facility] [address] [place] [address] Mitogen stimulated gamma interferon corrected for background Qn (Bld) >10.00 Invalid Interpretation Code [facility] Comment on above: Performed By: #### 1 [id number] #### [facility] [address] [place] [address] Service comment (Unsp spec) [Interp] Comment Invalid Interpretation Code [facility] Comment on above: Result Comment: Malachi [...] for the test. Performed By: #### 1 [id number] #### [facility] [address] [place] [address] AMA Ab Scron 12-15-2024 Mitochondria M2 IgG Qn (S) <20.0 Invalid Interpretation Code 0.0-20.0 [facility] Comment on above: Result Comment: Nega tive 0.0 - 20.0 Equivocal 20.1 - 24.9 Positive >24.9 Mitochondrial (M2) Antibodies are found in 90-96% of patients with primary biliary cirrhosis. Performed at: [facility] [id number] PhD Tarun Olivas Performed By: #### 1 [id number] #### [facility] [address] [place] [address] Celiac Disease Comprehensive on 12-15-2024 Endomysium IgA Ql (S) Negative Invalid Interpretation Code Negative [facility] Comment on above: Performed By: #### 1 [id number] #### [facility] [address] [place] [address] Gliadin peptide IgA Qn (S) 5 unit(s) Invalid Interpretation Code 0-19 [facility] Comment on above: Result Comment: Nega tive 0 - 19 Weak Positive 20 - 30 Moderate to Strong Positive >30 Performed By: #### 1 [id number] #### [facility] [address] [place] [address] Gliadin peptide IgG Qn (S) 2 unit(s) Invalid Interpretation Code 0-19 [facility] Comment on above: Result Comment: Nega tive 0 - 19 Weak Positive 20 - 30 Moderate to Strong Positive >30 Performed By: #### 1 [id number] #### [facility] [address] [place] [address] IgA [Mass/Vol] 199 mg/dL Invalid Interpretation Code [address] [facility] Comment on above: Result Comment: Perf ormed at: [facility] [id number] PhD Tarun Olivas Performed By: #### 1 [id number] #### [facility] [address] [place] [address] tTG IgA Qn (S) <2 Invalid Interpretation Code 0-3 [facility] Comment on above: Result Comment: Nega tive 0 - 3 Weak Positive 4 - 10 Positive >10 Tissue Transglutaminase (tTG) has been identified as the endomysial antigen. Studies have demonstr- ated that endomysial IgA antibodies have over 99% specificity for gluten sensitive enteropathy. Performed By: #### 1 [id number] #### [facility] [address] [place] [address] tTG IgG Qn (S) 6 unit/mL High 0-5 [facility] Comment on above: Result Comment: Nega tive 0 - 5 Weak Positive 6 - 9 Positive >9 Performed By: #### 1 [id number] #### [facility] [address] [place] [address] Hep Bs Abon 12-15-2024 HBV surface Ab Ql (S) Non-Reactive Invalid Interpretation Code [facility] Comment on above: Result Comment: Non Reactive: Not immune to HBV infection. Equivocal: Unable to determine if anti-HBs is present at levels consistent with immunity. Reactive: Anti-HBs concentration detected at greater than 10 mIU/mL. Individual is considered to be immune to infection with HBV. Performed at: [facility] [address] [place], [place] [id number] PhD Tarun Olivas Performed By: #### 2 [id number] #### [facility] [address] [place] [address] Hep Bs Agon 12-15-2024 HBV surface Ag IA Ql Negative Invalid Interpretation Code Negative [facility] Comment on above: Result Comment: Perf ormed at: [facility] [address] [id number] PhD Tarun Olivas Performed By: #### 2 [id number] #### [facility] [address] [place] [address] Ambulatory Visit Summaryon 0 12-14-2024 Ambulatory Visit [...] With: Ricky ROBLERO, Luis Antonio Tiwari Where: [facility] [address] [facility] [address] [address]- You Need to Complete the Following C-Reactive [...] PSA (prostate specific antigen) Ulcerative colitis, universal [place] ulcerative colitis Ureteral stone with hydronephrosis Urethral [...] for choosing us for your care. Normal [facility] CBC w/ Auto Diffon 5 Basophils/100 WBC (Bld) 0.5 % Normal 0.0-2.0 [facility] Comment on above: Performed By: #### 2 [id number] #### [facility] [address] [place] [address] Basophils/Leukocyt es Auto (Bld) [Pure # fraction] 0.0 E9/L Normal 0.0-0.2 [facility] Comment on above: Performed By: #### 2 [id number] #### [facility] [address] [place] [address] Eosinophils (Bld) [#/Vol] 0.0 E9/L Normal 0.0-0.5 [facility] Comment on above: Performed By: #### 2 [id number] #### [facility] [address] [place] [address] Eosinophils/100 WBC (Bld) 0.0 % Normal 0.0-8.0 [facility] Comment on above: Performed By: #### 2 [id number] #### [facility] [address] [place] [address] Erythrocyte distribution width (RBC) [Ratio] 15.6 % High 10.9-14.2 [facility] Comment on above: Performed By: #### 2 [id number] #### [facility] [address] [place] [address] Hematocrit (Bld) [Volume fraction] 36.2 % Low 37.7-49.0 [facility] Comment on above: Performed By: #### 2 [id number] #### [facility] [address] [place] [address] Hemoglobin (Bld) [Mass/Vol] 12.6 g/dL Low 13.5-17.5 [facility] Comment on above: Performed By: #### 2 [id number] #### [facility] [address] [place] [address] Lymphocytes (Bld) [#/Vol] 1.6 E9/L Normal 1.0-4.0 [facility] Comment on above: Performed By: #### 2 [id number] #### [facility] [address] [place] [address] Lymphocytes/100 WBC (Bld) 24.8 % Normal 14.0-50.0 [facility] Comment on above: Performed By: #### 2 [id number] #### [facility] [address] [place] [address] MCH (RBC) [Entitic mass] 31.7 pg Normal 27.0-34.0 [facility] Comment on above: Performed By: #### 2 [id number] #### [facility] [address] [place] [address] MCHC (RBC) [Mass/Vol] 34.9 g/dL Normal 31.4-36.0 [facility] Comment on above: Performed By: #### 2 [id number] #### [facility] [address] [place] [address] MCV (RBC) [Entitic vol] 90.8 fL Normal 80.0-100.0 [facility] Comment on above: Performed By: #### 2 [id number] #### [facility] [address] [place] [address] Monocytes (Bld) [#/Vol] 0.5 E9/L Normal 0.2-1.0 [facility] Comment on above: Performed By: #### 2 [id number] #### [facility] [address] [place] [address] Neutrophils (Bld) [#/Vol] 4.4 E9/L Normal 2.0-7.5 [facility] Comment on above: Performed By: #### 2 [id number] #### [facility] [address] [place] [address] Neutrophils/100 WBC (Bld) 67.2 % Normal 36.0-75.0 [facility] Comment on above: Performed By: #### 2 [id number] #### [facility] [address] [place] [address] Platelet 261.0 E9/L Normal 150.0-500.0 [facility] Comment on above: Performed By: #### 2 [id number] #### [facility] [address] [place] [address] Platelet mean volume (Bld) [Entitic vol] 6.9 fL Normal 6.4-10.8 [facility] Comment on above: Performed By: #### 2 [id number] #### [facility] [address] [place] [address] RBC (Bld) [#/Vol] 4.0 E12/L Low 4.3-5.9 [facility] Comment on above: Performed By: #### 2 [id number] #### [facility] [address] [place] [address] WBC corrected for nucl RBC Auto (Bld) [#/Vol] 6.6 E9/L Normal 4.0-11.0 [facility] Comment on above: Performed By: #### 2 [id number] #### [facility] [address] [place] [address] CMPon 12-14-2024 Albumin [Mass/Vol] 4.1 g/dL Normal 3.3-5.0 [facility] Comment on above: Performed By: #### 2 [id number] #### [facility] [address] [place] [address] Albumin/Globulin (S) [Mass conc ratio] 1.5 Normal 1.1-2.2 [facility] Comment on above: Performed By: #### 2 [id number] #### [facility] [address] [place] [address] ALP [Catalytic activity/Vol] 88 Int._Unit/L Normal 21-98 [facility] Comment on above: Performed By: #### 2 [id number] #### [facility] [address] [place] [address] ALT No additional P-5'-P [Catalytic activity/Vol] 27 Int._Unit/L Normal 6-46 [facility] Comment on above: Performed By: #### 2 [id number] #### [facility] [address] [place] [address] Anion gap [Moles/Vol] 9 mmol/L Normal 6-16 [facility] Comment on above: Performed By: #### 2 [id number] #### [facility] [address] [place] [address] AST [Catalytic activity/Vol] 29 Int._Unit/L Normal 5-43 [facility] Comment on above: Performed By: #### 2 [id number] #### [facility] [address] [place] [address] Bilirubin [Mass/Vol] 0.4 mg/dL Normal 0.0-1.1 [facility] Comment on above: Performed By: #### 2 [id number] #### [facility] [address] [place] [address] Calcium [Mass/Vol] 9.1 mg/dL Normal 8.9-11.1 [facility] Comment on above: Performed By: #### 2 [id number] #### [facility] [address] [place] [address] Chloride [Moles/Vol] 108 mmol/L Normal 101-111 [facility] Comment on above: Performed By: #### 2 [id number] #### [facility] [address] [place] [address] CO2 [Moles/Vol] 27 mmol/L Normal 21-31 [facility] Comment on above: Performed By: #### 2 [id number] #### [facility] [address] [place] [address] Creatinine [Mass/Vol] 0.8 mg/dL Normal 0.5-1.3 [facility] Comment on above: Performed By: #### 2 [id number] #### [facility] [address] [place] [address] Globulin (S) [Mass/Vol] 2.8 g/dL Normal 1.4-4.0 [facility] Comment on above: Performed By: #### 2 [id number] #### [facility] [address] [place] [address] Glucose [Mass/Vol] 94 mg/dL Normal 55-199 [facility] Comment on above: Performed By: #### 2 [id number] #### [facility] [address] [place] [address] Potassium [Moles/Vol] 4.7 mmol/L Normal 3.5-5.3 [facility] Comment on above: Performed By: #### 2 [id number] #### [facility] [address] [place] [address] Protein [Mass/Vol] 6.9 g/dL Normal 6.0-7.8 [facility] Comment on above: Performed By: #### 2 [id number] #### [facility] [address] [place] [address] Sodium [Moles/Vol] 139 mmol/L Normal 135-145 [facility] Comment on above: Performed By: #### 2 [id number] #### [facility] [address] [place] [address] Urea nitrogen [Mass/Vol] 16 mg/dL Normal 5-21 [facility] Comment on above: Performed By: #### 2 [id number] #### [facility] [address] [place] [address] Urea nitrogen/Creatinin e [Mass ratio] 20 No Units Normal 10-20 [facility] Comment on above: Performed By: #### 2 [id number] #### [facility] [address] [place] [address] CRPon 12-14-2024 CRP [Mass/Vol] 0.2 mg/dL Normal <=1.9 [facility] Comment on above: Performed By: #### 2 [id number] #### [facility] [address] [address] Gastroenterology Office/Clin ic Noteon 12-14-2024 Gastroenterology Office/Clinic [...] Last visit 06/13/24 w/Dr. García: Assessment/Plan 1. [place] ulcerative colitis (K51.00: Ulcerative (chronic) pancolitis without [...] he prefers to stay at [facility] He has also RA, no specific therapy for now, follows with Dr. Valente at [place] We discussed that having this lesion in [...] 89.5 fL (03/02/24) Chloride: 107 mmol/L (03/02/24) [place] Absolute: 0.5 E9/L (03/02/24) CO2: 27 mmol/L (03/02/24) [place] Auto: 8.2 % (03/02/24) Creatinine: 0.8 mg/dL (03/02/24) MPV: 6.9 fL (03/02/24) Globulin: 3 gm/dL (03/02/24) Neutro Absolute: 4.2 E9/L (03/02/24) Glucose Lvl: 97 mg/dL (03/02/24) Neutro Auto: 63.6 % (03/02/24) Potassium Lvl: 3.6 mmol/L (03/02/24) Platelet: 344 E9/L (03/02/24) Sodium Lvl: 141 mmol/L (03/02/24) RBC: 3.9 E12/L Low (03/02/24) Total Protein: 7 (more content not included)... Normal [facility] Comment on above: Result Comment: Elec tronically Signed By: Ricky ROBLERO, Luis Antonio Tiwari\.br\Date and Time Signed: 12/14/24 08:52 EST eGFRon 12-14-2024 eGFR 101 mL/min/1.73 m2 Normal >=59 [facility] Comment on above: Performed By: #### 1 [id number] #### [facility] [address] [place] [address] Ambulatory Visit Summaryon 0 11-21-2024 Ambulatory Visit [...] With: Ricky ROBLERO, Luis Antonio Tiwari Where: [facility] [address] [place] [address]- You Need to Schedule the Following Appointments Follow Up with DARRELL ROBLERO, Marcin Maguire, URL When: Where: [facility] [address] , [place] [address]- Medications What How Much When Instructions Unchanged [...] PSA (prostate specific antigen) Ulcerative colitis, universal [place] ulcerative colitis Ureteral stone with hydronephrosis Urethral [...] What are (more content not included)... Normal [facility] CNPNon 11-21-2024 CNPN Telephone (RHEULN) JAM TOSCANO ([id number]) 1965 M Date Time Provider Department 11/21/24 [...] toe 3 days ago. 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 Denies any change [...] apt with me or any rheum ANGÉLICA (MEDICAL TECH or PA) who has opening soon. thank you kindly, Estephania Lara LPN 11/23/2024 8:01 AM Signed Please offer appt with Dr Dubon or MEDICAL TECH, if patient still interested. Jordyn Roberson 11/23/2024 [...] atorvastatin (LIPITOR (more content not included)... Normal [facility] PSA Totalon 11-21-2024 Prostate specific Ag [Mass/Vol] 3.3 ng/mL Normal 0.1-3.5 [facility] Comment on above: Result Comment: The concentration of PSA determined by different manufacturers can vary due to differences in assay methods and reagent specificity. Values obtained from different assay methods cannot be used interchangeably. The methodology used for this result was chemiluminescence using [employer]'s Access Hybritech PSA reagent. Performed By: #### 1 [id number] #### [facility] [address] [place] [address] CNOVon 10-05-2024 CNOV Office Visit (ANGEL ) JAM TOSCANO ([id number]) 1965 M Date Time Provider Department 10/05/24 7:20 AM DARRIAN DUBON During your visit today, we recorded the following information about you: Pulse Blood pressure Weight 66/minute 128/76 77.7 kg Darrian Dubon MD 10/16/2024 7:47 PM Signed FOLLOW UP VISIT Patient's Name: Jam Erwin [facility] [address] PCP: [place] [address] [place] [phone] Consult Requested [place]: [place] [address] [place] [id number] Other physicians: Route Service Representative prev. Nel Lebron MD (his prev. capacity planning engineer left- Ronald Brown MD) ; Now following [...] No stiffness He is on sulfasalazine per capacity planning engineer for his UC and this has been controlling his RA He is pleased with his treatment regimen He also states that his IBD is well controlled, states told is in remission, on Entyvio Doing exercise and working with household personal assistant at the gym and will be going [...] in IBD and is following with local capacity planning engineer for that. Has been on Humira since Sep 2020 (started with 80 mg loading dose and since has been on 40 mg every 2 wks) He was pleased with Enbrel response to his RA and later was switched to Humira, reports has similar benefit and is pleased with response. His capacity planning engineer switched him to Humira for optimal mgt of IBD and he feels this has helped his IBD better. Reports still gets 8 BM's a day, does not have BM at night, does not have to wake up from sleep. Has been following with his capacity planning engineer for his UC Had colonoscopy 11/22/2021 with reported marked improvement in asc/transv/desc colon and severe active in rectum, histopath with active colitis with erosions. States Dr. Lebron has started him on rectal enemas. Recent colonoscopy with reported active colitis. He tells me that he continues to have multiple BM's; His capacity planning engineer prescribed pred. course, completed recently. No jt [...] us, he is on Humira per his Route Service Representative He is off Enbrel, was switched to Humira by his capacity planning engineer. (previously was on Enbrel 25 mg twice a wk and has been in remission since on Enbrel and very pleased with his treatment regimen) He is on Humira 40 mg every 2 wks by his Route Service Representative He is on sulfasalazine, Humira and mesalamine enemas per his capacity planning engineer I have reviewed benefits of a whole food plant based diet He consumes dairy, cheese, sausage, hamburger. I have advised him on avoiding meats and dairy and reviewed reports and patient experience with flare of IBD and RA, as well as gastrointestinal dysbiosis. I advised him on a whole foods plant based diet. 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 Normal [facility] Surgical Pathology Reporton 06-07-2024 Surgical Pathology Report [facility] [address] [place] [address]- Surgical Pathology Report Collected Date/Time: 06/03/2024 10:08 [...] is entirely submitted in one cassette. (DC) DC:[facility] Microscopic Description A-E: Microscopic examination performed unless gross only specified. The use of one or more reagents in the above tests is regulated as an analyte specific reagent (ASR). The test or tests are ordered following initial H&E microscopic examination. The performance characteristics were determined by the Laboratory of [facility]. They have not been cleared or approved by the [place] Food and Drug Administration. The FDA has determined that such clearance or approval is not necessary. These tests are used for clinical purposes. They should not be regarded as investigational or for research. Appropriate positive and negative controls are performed and are acceptable. [facility] Comment on above: Performed By: #### [id number] #### [facility] [address] [place] [address] XR Hand - bilateral PA and L ateral and Obliqueon 03-14-2024 IMPRESSION: Severe changes of chronic inflammatory arthritis, similar to prior. Left hand metallic foreign body. Agronomy Location Manager: CODY Transcribe Date/Time: Mar 14 2024 1:31P Dictated by : HORACIO DAWSON MD This examination was interpreted and the report reviewed and electronically signed by: HORACIO DAWSON MD on Mar 14 2024 5:53PM [facility] DIVISION OF RADIOLOGY * * *Final Report* [...] of the [facility]. DIVISION OF RADIOLOGY Provider, [facility] Celena [facility] - 03/14/2024 * * *Final Report* [...] to prior. Left hand metallic foreign body. Agronomy Location Manager: PSCB Transcribe Date/Time: Mar 14 2024 1:31P Dictated by : HORACIO DAWSON MD This examination was interpreted and the report reviewed and electronically signed by: HORACIO DAWSON MD on Mar 14 2024 5:53PM EST [facility] Radiology Study observation (narrative) [facility] XR Hand - bilateral PA and L ateral and ObliqueOrdered By: [facility] Provider on 03-14-2024 [facility] LIPID PROFILEon 02-11-2023 CHOL-HDL RATIO NORM SEE BELOW Normal [facility] Comment on above: Result Comment: 3.3 - 4.4 LOW RISK 4.4 - 7.1 AVERAGE RISK 7.1 - 11.0 MODERATE RISK >11.0 HIGH RISK Performed By: #### L IPID, LIVER #### [facility] [address] [address] [address] Rj Miller Cholesterol [Mass/Vol] 99 mg/dL Normal <=200 [facility] Comment on above: Performed By: #### L IPID, LIVER #### [facility] [address] [address] [address] Rj Miller Cholesterol in HDL [Mass/Vol] 44 mg/dL Normal 40-60 [facility] Comment on above: Performed By: #### L IPID, LIVER #### [facility] [address] [address] [address] Rj Miller Cholesterol in LDL [Mass/Vol] 45.4 mg/dL Normal [facility] Comment on above: Performed By: #### L IPID, LIVER #### [facility] [address] [address] [address] Rj Miller Cholesterol.total/ Cholesterol in HDL [Mass ratio] 2.3 {ratio} Normal [facility] Comment on above: Performed By: #### L IPID, LIVER #### [facility] [address] [address] [address] Rj Miller HDL NORMAL > or = 60 mg/dl - LO W CARDIOVASCULAR RISK <40 mg/dl - HIGH CARDIOVASCULAR RISK Normal [facility] Comment on above: Performed By: #### L IPID, LIVER #### [facility] [address] [address] [address] Rj Miller LDL CALC NORMAL SEE BELOW Normal [facility] Comment on above: Result Comment: <100 mg/dl OPTIMAL 100 - 129 mg/dl NEAR OR ABOVE OPTIMAL 130 - 159 mg/dl BORDERLINE HIGH 160 - 189 mg/dl HIGH >190 mg/dl VERY HIGH Performed By: #### L IPID, LIVER #### [facility] [address] [address] [address] Rj Miller Triglyceride [Mass/Vol] 48 mg/dL Normal <=150 [facility] Comment on above: Performed By: #### L IPID, LIVER #### [facility] [address] [address] [address] Rj Miller VLDL CALC 9.6 mg/dL Normal [facility] Comment on above: Performed By: #### L IPID, LIVER #### [facility] [address] [place] [address] Dr. Rj Miller LIVER PROFILEon 02-11-2023 Albumin [Mass/Vol] 3.7 g/dL Normal 3.4-5.0 [facility] Comment on above: Performed By: #### L IPID, LIVER #### [facility] [address] [place] [address] Dr. Rj Miller Albumin/Globulin [Mass ratio] 1.0 {ratio} Normal [facility] Comment on above: Performed By: #### L IPID, LIVER #### [facility] [address] [place] [address] Dr. Rj Miller ALP [Catalytic activity/Vol] 210 U/L Critically high 46-116 [facility] Comment on above: Performed By: #### L IPID, LIVER #### [facility] [address] [place] [address] Dr. Rj Miller ALT [Catalytic activity/Vol] 50 U/L Normal 16-63 [facility] Comment on above: Performed By: #### L IPID, LIVER #### [facility] [address] [place] [address] Dr. Rj Miller AST [Catalytic activity/Vol] 42 U/L Critically high 15-37 [facility] Comment on above: Performed By: #### L IPID, LIVER #### [facility] [address] [place] [address] Dr. Rj Miller BILI, CONJUGATED 0.1 mg/dL Normal 0.0-0.2 [facility] Comment on above: Performed By: #### L IPID, LIVER #### [facility] [address] [place] [address] Dr. Rj Miller Bilirubin [Mass/Vol] 0.3 mg/dL Normal 0.2-1.0 [facility] Comment on above: Performed By: #### L IPID, LIVER #### [facility] [address] [place], [place] [address] Dr. Rj Miller Globulin (S) [Mass/Vol] 3.7 g/dL Normal [facility] Comment on above: Performed By: #### L IPID, LIVER #### [facility] [address] [place], [place] [address] Dr. Rj Miller Protein [Mass/Vol] 7.4 g/dL Normal 6.4-8.2 [facility] Comment on above: Performed By: #### L IPID, LIVER #### [facility] [address] [place], [place] [address] Dr. Rj Miller 25-hydroxyvitamin D3 [Mass/V ol]on 01-14-2023 Vitamin D 25 [place] 40.2 ng/mL 30 - 100 ng/mL [facility] MRI LSPINE WO CONon 11-24-19 MRI [...] complex. No central or foraminal stenosis IMPRESSION: Btoo-ak-ywsdjmds degenerative changes resulting in mild left L2-L3 and mild right L3-L4 foraminal stenosis Electronically authenticated by: KALEIGH CANTOR Date: 2022-11-24 11:35 Normal [facility] XR LSPINE MIN 4 VIEWSon [...] by: JENNY TAPIA Date: 2022-11-07 11:13 Normal [facility] DXA-AXIAL SKELETONon 022 LOWEST T-SCORE -2.5 [facility] CBC AUTO DIFFon 09-24-2022 BASO # 0.0 103/ul Normal 0.0-0.1 [facility] Comment on above: Performed By: #### C BC #### [facility] [address] [place] [address] Dr. Rj Miller Basophils/100 WBC (Bld) 0.5 % Normal 0.2-2.0 [facility] Comment on above: Performed By: #### C BC #### [facility] [address] [address] [address] Rj Miller EO # 0.2 103/ul Normal 0.0-0.7 [facility] Comment on above: Performed By: #### C BC #### [facility] [address] [place] [address] Dr. Rj Miller Eosinophils/100 WBC (Bld) 1.8 % Normal 0.9-7.0 [facility] Comment on above: Performed By: #### C BC #### [facility] [address] [place] [address] Dr. Rj Miller Erythrocyte distribution width (RBC) [Ratio] 13.6 % Normal 11.0-15.0 [facility] Comment on above: Performed By: #### C BC #### [facility] [address] [place] [address] Dr. Rj Miller Hematocrit (Bld) [Volume fraction] 41.3 % Critically low 42.0-54.0 [facility] Comment on above: Performed By: #### C BC #### [facility] [address] [place] [address] Dr. Rj Miller Hemoglobin (Bld) [Mass/Vol] 14.1 g/dL Normal 14.0-18.0 [facility] Comment on above: Performed By: #### C BC #### [facility] [address] [place] [address] Dr. Rj Miller IG # 0.02 10e3/ul Normal 0.00-0.03 [facility] Comment on above: Performed By: #### C BC #### [facility] [address] [place] [address] Dr. Rj Miller IG % 0.2 % Normal 0.0-0.5 [facility] Comment on above: Performed By: #### C BC #### [facility] [address] [place] [address] Dr. Rj Miller LYMPH # 2.4 103/ul Normal 1.2-3.8 [facility] Comment on above: Performed By: #### C BC #### [facility] [address] [place] [address] Dr. Rj Miller Lymphocytes/100 WBC (Bld) 29.5 % Normal 20.5-60.0 [facility] Comment on above: Performed By: #### C BC #### [facility] [address] [place] [address] Dr. Rj Miller MANUAL DIFF REQ NO Normal [facility] Comment on above: Performed By: #### C BC #### [facility] [address] [place] [address] Dr. Rj Miller MCH (RBC) [Entitic mass] 31.1 pg Normal 25.9-34.0 [facility] Comment on above: Performed By: #### C BC #### [facility] [address] [place] [address] Dr. Rj Miller MCHC (RBC) [Mass/Vol] 34.1 g/dL Normal 29.9-35.2 [facility] Comment on above: Performed By: #### C BC #### [facility] [address] [place] [address] Dr. Rj Miller MCV (RBC) [Entitic vol] 91.0 fL Normal 80.0-94.0 [facility] Comment on above: Performed By: #### C BC #### [facility] [address] [place] [address] Dr. Rj iMller MONO # 0.7 103/ul Normal 0.3-0.8 [facility] Comment on above: Performed By: #### C BC #### [facility] [address] [place] [address] Dr. Rj Miller Monocytes/100 WBC (Bld) 8.3 % Normal 1.7-12.0 [facility] Comment on above: Performed By: #### C BC #### [facility] [address] [place] [address] Dr. Rj Miller NEUT # 4.9 103/ul Normal 1.4-6.5 [facility] Comment on above: Performed By: #### C BC #### [facility] [address] [place] [address] Dr. Rj Miller Neutrophils/100 WBC (Bld) 59.7 % Normal 43.0-75.0 [facility] Comment on above: Performed By: #### C BC #### [facility] [address] [place] [address] Dr. Rj Miller Platelet mean volume (Bld) [Entitic vol] 8.8 fL Critically low 9.5-13.5 [facility] Comment on above: Performed By: #### C BC #### [facility] [address] [place] [address] Dr. Rj Miller PLT 288 103/ul Normal 150-450 [facility] Comment on above: Performed By: #### C BC #### [facility] [address] [address] [address] Rj Miller RBC 4.54 106/ul Critically low 4.70-6.10 [facility] Comment on above: Performed By: #### C BC #### [facility] [address] [place] [address] Dr. Rj Miller WBC 8.2 103/ul Normal 4.0-11.0 [facility] Comment on above: Performed By: #### C BC #### [facility] [address] [place] [address] Dr. Rj Miller Covid-19 PCR ([facility]on SARS-CoV-2 (COVID-19) RNA BERNARDO+probe Ql (Unsp spec) Not detected Normal NOT DETECTED [facility] Comment on above: Result Comment: [...] for this test is supported by the [place] of Health and Human Service's declaration that [...] used). Performed By: #### C VDTBH #### [facility] [address] [place] [address] Dr. Rj Miller LIPASEon 09-24-2022 Lipase [Catalytic activity/Vol] 17.0 U/L Critically low 73.0-393.0 [facility] Comment on above: Performed By: #### C MP, LIPA, HSTROPN #### [facility] [address] [place] [address] Dr. Rj Miller PROF 14(COMP METB)on 022 Albumin [Mass/Vol] 3.8 g/dL Normal 3.4-5.0 [facility] Comment on above: Performed By: #### C MP, LIPA, HSTROPN #### [facility] [address] [place] [address] Dr. Rj Miller Albumin/Globulin [Mass ratio] 1.0 {ratio} Normal [facility] Comment on above: Performed By: #### C MP, LIPA, HSTROPN #### [facility] [address] [place] [address] Dr. Rj Miller ALP [Catalytic activity/Vol] 180 U/L Critically high 46-116 [facility] Comment on above: Performed By: #### C MP, LIPA, HSTROPN #### [facility] [address] [place] [address] Dr. Rj Miller ALT [Catalytic activity/Vol] 38 U/L Normal 16-63 [facility] Comment on above: Performed By: #### C MP, LIPA, HSTROPN #### [facility] [address] [place] [address] Dr. Rj Miller Anion gap [Moles/Vol] 8.7 mmol/L Normal [facility] Comment on above: Performed By: #### C MP, LIPA, HSTROPN #### [facility] [address] [place] [address] Dr. Rj Miller AST [Catalytic activity/Vol] 28 U/L Normal 15-37 [facility] Comment on above: Performed By: #### C MP, LIPA, HSTROPN #### [facility] [address] [place], [place] [address] Dr. Rj Miller Bilirubin [Mass/Vol] 0.4 mg/dL Normal 0.2-1.0 [facility] Comment on above: Performed By: #### C MP, LIPA, HSTROPN #### [facility] [address] [place] [address] Dr. Rj Miller Calcium [Mass/Vol] 8.9 mg/dL Normal 8.5-10.1 [facility] Comment on above: Performed By: #### C MP, LIPA, HSTROPN #### [facility] [address] [place] [address] Dr. Rj Miller Chloride [Moles/Vol] 103 mmol/L Normal 98-107 [facility] Comment on above: Performed By: #### C MP, LIPA, HSTROPN #### [facility] [address] [place] [address] Dr. Rj Miller CO2 [Moles/Vol] 26.0 mmol/L Normal 21.0-32.0 [facility] Comment on above: Performed By: #### C MP, LIPA, HSTROPN #### [facility] [address] [place] [address] Dr. Rj Miller Creatinine [Mass/Vol] 0.88 mg/dL Normal 0.70-1.30 [facility] Comment on above: Performed By: #### C MP, LIPA, HSTROPN #### [facility] [address] [place] [address] Dr. Rj Miller EGFR-AF INDIAN >60 Normal >=60 [facility] Comment on above: Performed By: #### C MP, LIPA, HSTROPN #### [facility] [address] [place] [address] Dr. Rj Miller EGFR-NON AF INDIAN >60 Normal >=60 [facility] Comment on above: Performed By: #### C MP, LIPA, HSTROPN #### [facility] [address] [place] [address] Dr. Rj Miller Globulin (S) [Mass/Vol] 3.8 g/dL Normal [facility] Comment on above: Performed By: #### C MP, LIPA, HSTROPN #### [facility] [address] [address] [address] Rj Miller Glucose [Mass/Vol] 116 mg/dL Critically high 74-106 [facility] Comment on above: Performed By: #### C MP, LIPA, HSTROPN #### [facility] [address] [place] [address] Dr. Rj Miller Potassium [Moles/Vol] 3.7 mmol/L Normal 3.5-5.1 [facility] Comment on above: Performed By: #### C MP, LIPA, HSTROPN #### [facility] [address] [place] [address] Dr. Rj Miller Protein [Mass/Vol] 7.6 g/dL Normal 6.4-8.2 [facility] Comment on above: Performed By: #### C MP, LIPA, HSTROPN #### [facility] [address] [place] [address] Dr. Rj Miller Sodium [Moles/Vol] 134 mmol/L Critically low 136-145 [facility] Comment on above: Performed By: #### C MP, LIPA, HSTROPN #### [facility] [address] [place] [address] Dr. Rj Miller Urea nitrogen [Mass/Vol] 13.0 mg/dL Normal 7.0-18.0 [facility] Comment on above: Performed By: #### C MP, LIPA, HSTROPN #### [facility] [address] [place] [address] Dr. Rj Miller Urea nitrogen/Creatinin e [Mass ratio] 14.8 mg/mg Normal [facility] Comment on above: Performed By: #### C MP, LIPA, HSTROPN #### [facility] [address] [place] [address] Dr. Rj Miller TROPONIN, HIGH SENSITIVITYon 09-24-2022 HSTROP 10.1 pg/mL Normal 4.0-76.1 [facility] Comment on above: Result Comment: CUT- OFF POINTS HAVE BEEN ESTABLISHED BASED ON THE FOURTH UNIVERSAL DEFINITIONS OF MYOCARDIAL INFARCTION. THE UPPER REFERENCE LIMIT (URL) OF TROPONIN, DEFINED THE 99TH PERCENTILE OF cTnI DISTRIBUTION IN A REFERENCE POPULATION, HAS BEEN CONFIRMED THE DECISION THRESHOLD FOR IA DIAGNOSIS. Performed By: #### C MP, DEBBY DORSEY #### [facility] [address] [address] [address] Rj Miller XR CSPINE 2_3 VIEWSon [...] by: JENNY TAPIA Date: 2022-09-24 07:20 Normal [facility] Basic Metabolic Panelon 04- Calcium [Mass/Vol] 8.7 mg/dL Normal 8.2-10.2 [facility] Comment on above: Performed By: #### B MP #### [facility] [address] [place] [address] [place] Chloride [Moles/Vol] 107 mmol/L Normal 95-114 [facility] Comment on above: Performed By: #### B MP #### [facility] [address] [id number] [place] CO2 [Moles/Vol] 23.3 mmol/L Normal 22.0-30.0 [facility] Comment on above: Performed By: #### B MP #### [facility] [id number] [facility] Creatinine [Mass/Vol] 0.80 mg/dL Normal 0.64-1.27 [facility] Comment on above: Performed By: #### B MP #### [address] Creatinine Clr Calc Pharmacy 101.34 [facility] Comment on above: Result Comment: PERF ORMED BY: [place] [address] PATHOLOGIST SALES REPRESENTATIVE PRINTING PAPER MARGO MINOR M.D. Performed By: #### B MP #### [address] Estimated GFR ( David > 60 [facility] Comment on above: Result Comment: GFR estimated reference range: According to KDOQI guidelines, <60 ml/min/1.73m2 is sufficient to diagnose a patient with chronic kidney disease. Performed By: #### B MP #### [address] Estimated GFR (Non- Am > 60 [facility] Comment on above: Performed By: #### B MP #### [address] Glucose [Mass/Vol] 101 mg/dL High 70-100 [facility] Comment on above: Result Comment: [place] Glucose Reference Range is dependent on time and content of last meal. Glucose of more than 200 mg/dL in a nonstressed, ambulatory subject supports the diagnosis of Diabetes Mellitus. ADA recommended reference range Performed By: #### B MP #### [address] Potassium [Moles/Vol] 4.3 mmol/L Normal 3.5-5.1 [facility] Comment on above: Performed By: #### B MP #### [place] [address] [place] Sodium [Moles/Vol] 138 mmol/L Normal 136-146 [facility] Comment on above: Performed By: #### B MP #### [address] Urea nitrogen [Mass/Vol] 13 mg/dL Normal 9-23 [facility] Comment on above: Performed By: #### B MP #### [address] [address] [place] Calculi, Urinaryon 1 Ca Oxalate Dihydrate 60 % Normal . [facility] Comment on above: Performed By: #### C ALCULI #### [facility] , Ca Oxalate Monohydrate 30 % Normal . [facility] Comment on above: Performed By: #### C ALCULI #### [facility] , Color (U) Moy Normal . [facility] Comment on above: Performed By: #### C ALCULI #### [facility] , Comment: Normal . [facility] Comment on above: Result Comment: Liz guidry questions regarding Calculi Analysis [facility] at: [phone]. Performed By: #### C ALCULI #### [facility] , Composition Normal . [facility] Comment on above: Result Comment: Perc entage (Represents the % composition) Performed By: #### C ALCULI #### [facility] , Disclaimer: Normal . [facility] Comment on above: Result Comment: This test was developed and its performance characteristics determined by [facility]. It has not been cleared or approved by the Food and Drug Administration. Performed at: [facility] [address] [place] [address] Dr Castillo, [place], [place] [id number] Supervisor Sulfuric Acid Plant: Anthony Grey MD, Phone: [phone] Performed By: #### C ALCULI #### [facility] , Hydroxyapatite 10 % Normal . [facility] Comment on above: Performed By: #### C ALCULI #### [facility] , Note Normal . [facility] Comment on above: Result Comment: Calc josafat report will follow via computer, mail or home health outreach coordinator delivery. PERFORMED BY: [place] [address] PATHOLOGIST SALES REPRESENTATIVE PRINTING PAPER MARGO MINOR M.D. Performed By: #### C ALCULI #### [facility] , Photo Normal . [facility] Comment on above: Result Comment: Shirlene mueller will follow under a separate cover Performed By: #### C ALCULI #### [facility] , Size 6x6 Normal . [facility] Comment on above: Result Comment: Mult iple pieces received. Dimensions of the largest piece reported. Performed By: #### C ALCULI #### [facility] , Source Ureter Normal . [facility] Comment on above: Performed By: #### C ALCULI #### [facility] , Weight 110 Normal . [facility] Comment on above: Performed By: #### C ALCULI #### [facility] , ECG 12 lead ECGon 02-27-2021 ECG 12 lead ECG [facility] [place] [address] Electrocardiograph Report Signed Patient: Jam Toscano MR#: [id number] : 1965 Acct:[id number] Age/Sex: 55 / M ADM Date: 02/27/21 Loc: [place] Room: Type: [facility] Attending Dr: Rigo Gonzalez Jr, [...] 02/27/21 1110 Signed By: 02/27/21 1225 Normal [facility] Mikey 02-27-2021 L -------- -------- Specimen: Received: 02/27/21 Status: EMELI Mark Num: [id number] Spec Type: Surgical Subm Dr: Rigo Gonzalez Jr, MD, FACS Tissues: A Urinary Calculus (URETHRAL STONE) Procedures: Level 1 Gross -------- Patient Age/Sex Location Account Attending Physician -------- Jam Toscano 55/M [place] [id number] Rigo Gonzalez Jr, MD, FACS -------- SPEC NUM: [id number] RECD: 02/27/21 STATUS: EMELI MARK NUM: [id number] RADHA: 02/27/21- [facility] DR: Rigo Gonzalez Jr, MD, FACS [...] Microscopic Description Gross examination only CPT Codes 68830 -------- -------- Specimen: [id number] Received: 02/27/21 Status: EMELI Dupree Num: [id number] Spec Type: Surgical Subm Dr: Rigo Gonzalez Jr, MD, FACS Tissues: A Urinary Calculus (URETHRAL STONE) Procedures: Level 1 Gross -------- Patient: Jam Toscano [id number] (Continued) -------- Signed (signature on file) Silvestre Poon MD 02/28/21 1428 Normal [facility] COVID-19 FRon 02-25-2021 SARS-CoV-2 (COVID-19) RNA BERNARDO+probe Ql (Unsp spec) Negative Normal Negative [facility] Comment on above: Order Comment: Healt hcare Worker?: N Result Comment: Refe rence: Negative Testing for SARS-CoV-2 by RT-PCR This test was developed and its performance characteristics determined by [employer]) and validated at the [facility]. This test has not been FDA [...] is terminated or revoked sooner. PERFORMED BY: [facility] [address] [facility] [place] [address] PATHOLOGIST SALES REPRESENTATIVE PRINTING PAPER MARGO MINOR M.D. Performed By: #### C OVID-19 [facility] #### [facility] [address] [place] [address] COVID-19 Positive/Negativeon 02-25-2021 COVID-19 Positive/Negative Negative Negative [facility] Comment on above: Reference: NegativeT esting for SARS-CoV-2 by RT-PCRThis test was developed and its performance characteristics determined by [employer] ([employer]) and validated at the [facility]. This test has not been FDA [...] Otheron 02-25-2021 Coronavirus 2019 PCR Interp N/A [facility] XR ANKLE GENERAL 3V AP/LAT/O BL LTon 02-20-2021 [facility] DXA-AXIAL SKELETONon [facility] Vital Signs Date Time Vital Sign Value Performing Clinician Lucy waggoner 06-06-2025 08:17-0400 Body mass index (BMI) [Ratio] 26.81 kg/m2 Darrian Dubon MD Work Phone: [facility] 06-06-2025 08:17-0400 Body weight 75.3 kg Darrian Dubon MD Work Phone: [facility] 06-06-2025 08:17-0400 Diastolic blood pressure 62 mm[Hg] Darrian Dubon MD Work Phone: [facility] 06-06-2025 08:17-0400 Heart rate 66 /min Darrian Dubon MD Work Phone: [facility] 06-06-2025 08:17-0400 Systolic blood pressure 124 mm[Hg] Darrian Dubon MD Work Phone: [facility] 02-14-2025 07:10-0400 Body mass index (BMI) [Ratio] 28.12 kg/m2 Darrian Dubon MD Work Phone: [facility] 02-14-2025 07:10-0400 Body weight 79 kg Darrian Dubon MD Work Phone: [facility] 02-14-2025 07:10-0400 Diastolic blood pressure 74 mm[Hg] Darrian Dubon MD Work Phone: [facility] 02-14-2025 07:10-0400 Heart rate 66 /min Darrian Dubon MD Work Phone: [facility] 02-14-2025 07:10-0400 Systolic blood pressure 134 mm[Hg] Darrian Dubon MD Work Phone: [facility] 10-05-2024 07:15-0500 Body mass index (BMI) [Ratio] 27.66 kg/m2 Darrian Dubon MD Work Phone: [facility] 10-05-2024 07:15-0500 Body weight 77.7 kg Darrian Dubon MD Work Phone: [facility] 10-05-2024 07:15-0500 Diastolic blood pressure 76 mm[Hg] Darrian Dubon MD Work Phone: [facility] 10-05-2024 07:15-0500 Heart rate 66 /min Darrian Dubon MD Work Phone: [facility] 10-05-2024 07:15-0500 Systolic blood pressure 128 mm[Hg] Darrian Dubon MD Work Phone: [facility] 05-09-2024 10:05-0400 Diastolic blood pressure 78 mm[Hg] Rheu Maria De Jesus Work Phone: [facility] 05-09-2024 10:05-0400 Heart rate 78 /min Rheu Maria De Jesus Work Phone: [facility] 05-09-2024 10:05-0400 Systolic blood pressure 121 mm[Hg] Geoffrey Pretty Work Phone: [facility] 05-09-2024 09:08-0400 Body mass index (BMI) [Ratio] 27.16 kg/m2 Nidia Ascencio APRN.ACCOUNTING FILE CLERK Work Phone: [facility] 05-09-2024 09:08-0400 Body temperature 98.4 [degF] Nidia Ascencio APRN.ACCOUNTING FILE CLERK Work Phone: [facility] 05-09-2024 09:08-0400 Body weight 76.3 kg Nidia Ascencio APRN.ACCOUNTING FILE CLERK Work Phone: [facility] 05-09-2024 09:08-0400 Diastolic blood pressure 79 mm[Hg] Nidia Ascencio APRN.ACCOUNTING FILE CLERK Work Phone: [facility] 05-09-2024 09:08-0400 Heart rate 89 /min Nidia Ascencio APRN.ACCOUNTING FILE CLERK Work Phone: [facility] 05-09-2024 09:08-0400 SaO2% (BldA) [Mass fraction] 97 % Nidia Ascencio APRN.ACCOUNTING FILE CLERK Work Phone: [facility] 05-09-2024 09:08-0400 Systolic blood pressure 118 mm[Hg] Nidia Ascencio APRN.ACCOUNTING FILE CLERK Work Phone: [facility] 03-14-2024 09:17-0400 Body mass index (BMI) [Ratio] 26.66 kg/m2 Nidia Ascencio APRN.ACCOUNTING FILE CLERK Work Phone: [facility] 03-14-2024 09:17-0400 Body weight 74.9 kg Nidia Ascencio APRN.ACCOUNTING FILE CLERK Work Phone: [facility] 03-14-2024 09:17-0400 Diastolic blood pressure 83 mm[Hg] Nidia Ascencio APRN.ACCOUNTING FILE CLERK Work Phone: [facility] 03-14-2024 09:17-0400 Heart rate 97 /min Nidia Ascencio APRN.ACCOUNTING FILE CLERK Work Phone: [facility] 03-14-2024 09:17-0400 SaO2% (BldA) [Mass fraction] 97 % Nidia Ascencio APRN.CNP Work Phone: [facility] 03-14-2024 09:17-0400 Systolic blood pressure 121 mm[Hg] Nidia Ascencio APRN.CNP Work Phone: [facility] Encounters Encounter Date Encounter Type Care Provider Facility Start: 06-21-2025 End: 06-21-2025 ambulatory Salmon Talal [facility] Start: 06-07-2025 End: 06-07-2025 ambulatory Salmon Talal Sarmini [facility] Start: 06-06-2025 End: 06-06-2025 Office outpatient [...] 06-06-2025 End: 06-06-2025 ambulatory JOSE L Griselda [facility] Facility:[facility] Start: 06-06-2025 End: 06-06-2025 Subsequent hospital visit by physician Bone Density [facility] Maria De Jesus Radiology Comment on above: Seropositive rheumat oid arthritis (HCC) [M05.9] Start: 05-31-2025 End: 05-31-2025 ambulatory Salmon Talal Sarmini Facility[facility] Start: 05-23-2025 End: 05-23-2025 ambulatory JOSE L M Y Facility:[facility] Start: 05-22-2025 End: 05-22-2025 ambulatory Salmon Talal Sarmini [facility] Start: 05-11-2025 End: 05-11-2025 ambulatory Salmon Talal Sarmini Facility:[facility] Start: 05-03-2025 End: 05-03-2025 Christopher Veliz DO Work Phone: [facility] Start: 05-03-2025 End: 05-03-2025 Bamboo flowsheet Jr. Bradly Veliz DO Work Phone: [facility] Start: 05-03-2025 End: 05-03-2025 Office outpatient visit 15 minutes Jr. rBadly Veliz DO Work Phone: [facility] Comment on above: Pain and swelling of right knee (Primary Dx); History of total left knee replacement; History of total right knee replacement; Pain and swelling of left knee Start: 05-03-2025 End: 05-03-2025 ambulatory BRADLY Not Available Start: 03-29-2025 End: 03-29-2025 Bamboo flowsheet Jr. Bradly Veliz DO Work Phone: [facility] Start: 03-29-2025 End: 03-29-2025 Bamboo flowsheet Jr. Bradly Veliz DO Work Phone: [facility] Start: 03-29-2025 End: 03-29-2025 Office outpatient visit 15 minutes Jr. Bradly Veliz DO Work Phone: [facility] Comment on above: Pain of right hip (P rimary Dx); Primary osteoarthritis of right hip; Arthritis of knee, left; History of total hip replacement, right Start: 03-29-2025 End: 03-29-2025 ambulatory BRADLY Not Available Start: 02-14-2025 End: 02-14-2025 ambulatory JOSE L LACKEY Facility:[facility] Start: 02-14-2025 End: 02-14-2025 Office outpatient [...] 12-14-2024 End: 12-14-2024 ambulatory Luis Antonio García Facility:[facility] Start: 11-21-2024 End: 11-23-2024 Telephone encounter Darrian Dubon MD Work Phone: Rheumatology Comment on above: Patient Update Start: 11-21-2024 End: 11-21-2024 ambulatory Marcin RAMÍREZ Facility:[facility] Start: 11-21-2024 End: 11-21-2024 ambulatory Marcin RAMÍREZ Facility:[facility] Start: 10-05-2024 End: 10-05-2024 ambulatory DARRIAN DUBON Facility:[facility] Start: 10-05-2024 End: 10-05-2024 Office outpatient [...] prevention Start: 05-09-2024 End: 05-09-2024 ambulatory Geoffrey Ellis 2 Maria De Jesus Work Phone: Infusion Comment on above: Other osteoporosis w ithout current pathological fracture (Primary Dx) Start: 05-09-2024 End: 05-09-2024 Patient encounter procedure Nidia Ascencio APRN.ACCOUNTING FILE CLERK Work Phone: Rheumatology Comment on above: 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); Vitamin D deficiency; Other osteoporosis without current pathological fracture Start: 05-03-2024 Telephone encounter Maria G slater MD Work Phone: Rheumatology Comment on above: Results (Labs) Start: 04-11-2024 Telephone encounter Nidia retana APRN.ACCOUNTING FILE CLERK Work Phone: Rheumatology Comment on above: Patient Update Start: 03-14-2024 End: 03-14-2024 Subsequent hospital visit by physician Xr [facility] Radiology Comment on above: Rheumatoid [...] counseling Start: 02-11-2024 Telephone encounter Nidia retana APRN.ACCOUNTING FILE CLERK Work Phone: Rheumatology Start: 05-04-2023 Telephone encounter Nidia retana APRN.ACCOUNTING FILE CLERK Work Phone: Rheumatology Comment on above: Patient Update Start: 05-04-2023 End: 05-04-2023 ambulatory Nidia Griselda Silva MIR.ACCOUNTING FILE CLERK Work Phone: Rheumatology Comment on above: [...] 05-04-2023 Telemedicine consultation with patient Nidia Ascencio ACCOUNTING FILE CLERK Work Phone: [facility] Start: 03-02-2023 End: 03-02-2023 ambulatory Nidia Griselda Silva MOSERACCOUNTING FILE CLERK Work Phone: Rheumatology Comment on above: 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); Encounter to discuss test results; Counseling on health promotion and disease prevention; Ulcerative pancolitis (HCC); Other osteoporosis without current pathological fracture Start: 03-02-2023 End: 03-02-2023 Telemedicine consultation with patient Nidia Gavirialainey MOSERACCOUNTING FILE CLERK Work Phone: [facility] Start: 02-11-2023 End: 02-12-[address] JOSE L LACKEY . Facility: Start: 01-14-2023 Telephone encounter Nidia retana APRN.ACCOUNTING FILE CLERK Work Phone: Rheumatology Comment on above: Outside Lab Results (Vit D ) Start: 12-29-2022 End: 12-29-2022 ambulatory Nidia Ascencio APRN.ACCOUNTING FILE CLERK Work Phone: Rheumatology Comment on above: 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); Vitamin D deficiency; Encounter to discuss test results; Encounter for medication review and counseling; Counseling on health promotion and disease prevention; Other osteoporosis without current pathological fracture Start: 12-29-2022 End: 12-29-2022 Telemedicine consultation with patient Nidia Ascencio APRN.ACCOUNTING FILE CLERK Work Phone: [facility] [place] [facility] Start: 11-24-2022 End: 11-25-[address] JOSE L LACKEY . Facility:[facility] Start: 11-06-2022 End: 11-07-[address] JOSE L LACKEY . Facility:[facility] Start: 09-24-2022 End: 09-24-[address] JOSE L LACKEY . Facility:[facility] Start: 09-23-2022 End: 09-23-2022 Subsequent hospital visit by physician Bone Density [facility] Maria De Jesus Radiology Comment on above: Other osteoporosis w ithout current pathological fracture [M81.8] Start: 02-10-2022 Telephone encounter Darrian Florez MD Work Phone: Rheumatology Comment on above: Results Start: 02-25-2021 End: 02-25-2021 Patient encounter procedure Rigo Gonzalez -Pre-Surgical Testing Start: 02-20-2021 End: 02-20-2021 Subsequent hospital visit by physician Xr [facility] Radiology Comment on above: Seropositive rheumat oid arthritis (HCC) [M05.9] Start: 08-22-2020 End: 08-22-2020 Subsequent hospital visit by physician Bone Density [facility] Maria De Jesus Radiology Comment on [...] Radex hand minimum 3 views Nidia Ascencio COLOR DIPPER.ACCOUNTING FILE CLERK Work Phone: Start: 01-12-2023 VITAMIN D 25 HYDROXY Am y Griselda Ascencio COLOR DIPPER.ACCOUNTING FILE CLERK Work Phone: Start: 09-23-2022 Dxa bone [...] Start: 12-01-2026 Diabetes Screening Diabetes Screenin g [facility] Start: 05-02-2026 End: 05-02-2026 Patient encounter procedure 05/02/2026 10:00 AM EDT Office Visit [facility] [address] [place] [id number] Jr. Bradly Veliz, DO [address] [place] [address] [facility] Start: 03-28-2026 End: 03-28-2026 Patient encounter procedure 03/28/2026 10:00 AM EDT Office Visit [facility] [address] [place] [id number] Jr. Bradly Veliz, DO [address] [place] [address] [facility] Start: 10-31-2025 End: 10-31-2025 Patient encounter procedure 10/31/2025 10:00 AM EST Office Visit Rheumatology [address] [facility] [place] [address] Darrian Dubon MD [address] [facility] [place] [address] Please also offer another apt later in [...] ambulatory 05/23/2025 8:00 AM EDT Results Only [facility] [address] [place] [address] [place] [address] labs [facility] Comment on above: labs Start: 05-16-2025 End: 08-15-2025 25-hydroxyvitamin D3 [Mass/volume] in Serum or Plasma VITAMIN D 25 HYDROXY Lab Routine Seropositive rheumatoid arthritis (HCC) Ulcerative pancolitis (HCC) Other osteoporosis without current pathological fracture History of bisphosphonate therapy Expected: 05/16/2025, Expires: 08/15/2025 [facility] Comment on above: Expected: 05/16/2025 , Expires: 08/15/2025 Start: 05-16-2025 End: 08-15-2025 C reactive protein [Mass/volume] in Serum or Plasma C-REACTIVE PROTEIN Lab Routine Seropositive rheumatoid arthritis (HCC) Ulcerative pancolitis (HCC) Expected: 05/16/2025, Expires: 08/15/2025 [facility] Comment on above: Expected: 05/16/2025 , Expires: 08/15/2025 Start: 05-16-2025 End: 08-15-2025 CBC W Auto Differential panel - Blood COMPLETE BLOOD COUNT AND DIFFERENTIAL Lab Routine Seropositive rheumatoid arthritis (HCC) Rheumatoid arthritis involving multiple sites with positive rheumatoid factor (HCC) On sulfasalazine therapy Ulcerative pancolitis (HCC) Expected: 05/16/2025, Expires: 08/15/2025 [facility] Work Phone: Comment on above: Expected: 05/16/2025 , Expires: 08/15/2025 Start: 05-16-2025 End: 08-15-2025 Collagen crosslinked C-telopeptide [Mass/volume] in Serum or Plasma C TELOPEPTIDE, BETA Lab Routine Other osteoporosis without current pathological fracture History of bisphosphonate therapy Expected: 05/16/2025, Expires: 08/15/2025 [facility] Comment on above: Expected: 05/16/2025 , Expires: 08/15/2025 Start: 05-16-2025 End: 08-15-2025 Renal function 2000 panel - Serum or Plasma RENAL FUNCTION PANEL Lab Routine Other osteoporosis without current pathological fracture History of bisphosphonate therapy Expected: 05/16/2025, Expires: 08/15/2025 [facility] Comment on above: Expected: 05/16/2025 , Expires: 08/15/2025 Start: 05-03-2025 End: 05-03-2025 Patient encounter procedure [facility] Comment on above: Arrived Start: 03-29-2025 End: 03-29-2025 Patient encounter procedure 03/29/2025 10:00 AM EDT Office Visit [facility] [address] [facility] [address] [place] [address] Jr. Bradly Veliz C, DO [address] [facility] [address] [place] [address] Arrived [facility] Comment on above: Arrived Start: 02-14-2025 End: 02-14-2025 Patient encounter procedure 02/14/2025 7:20 AM EDT Office Visit Rheumatology [address] [place] [address] Darrian Dubon MD [address] [place] [address] Dubon Rheumatology Comment on above: future with dr. Vince melton Start: 11-16-2024 Medicare Advantage Annual Wellness Visit Medicare Advantage Annual Wellness Visit [facility] Start: 10-05-2024 End: 10-05-2024 Patient encounter procedure 10/05/2024 7:20 AM EST Office Visit Rheumatology [address] [address] Darrian Dubon MD [address] [place] [address] RA Rheumatology Comment on above: RA Start: 09-16-2024 End: 12-16-2024 25-hydroxyvitamin D3 [Mass/volume] in Serum or Plasma VITAMIN D 25 HYDROXY Lab Routine Vitamin D deficiency Other osteoporosis without current pathological fracture Expected: 09/16/2024 (Approximate), Expires: 12/16/2024 [facility] Comment on above: Expected: 09/16/2024 (Approximate), Expires: 12/16/2024 Start: 09-16-2024 End: 12-16-2024 C reactive protein [Mass/volume] in Serum or Plasma C-REACTIVE PROTEIN Lab Routine Rheumatoid arthritis involving multiple sites with positive rheumatoid factor (HCC) Expected: 09/16/2024 (Approximate), Expires: 12/16/2024 [facility] Work Phone: Comment on above: Expected: 09/16/2024 (Approximate), Expires: 12/16/2024 Start: 09-16-2024 End: 12-16-2024 Erythrocyte sedimentation rate SEDIMENTATION RATE, WESTERGREN Lab Routine Rheumatoid arthritis involving multiple sites with positive rheumatoid factor (HCC) Expected: 09/16/2024 (Approximate), Expires: 12/16/2024 [facility] Comment on above: Expected: 09/16/2024 (Approximate), Expires: 12/16/2024 Start: 09-16-2024 End: 12-16-2024 Renal function 2000 panel - Serum or Plasma RENAL FUNCTION PANEL Lab Routine Rheumatoid arthritis involving multiple sites with positive rheumatoid factor (HCC) Other osteoporosis without current pathological fracture Expected: 09/16/2024 (Approximate), Expires: 12/16/2024 [facility] Comment on above: Expected: 09/16/2024 (Approximate), Expires: 12/16/2024 Start: 07-17-2024 Influenza vaccination C [facility] Start: 05-09-2024 End: 05-09-2024 ambulatory 05/09/2024 9:30 AM EDT Infusion Center [facility] [address] [facility] [place] [address] Return labs in 1 month, for reclast and ov in 1-2 months after labs Infusion Comment on above: Return labs in 1 mon , for reclast and ov in 1-2 months after labs Start: 05-09-2024 End: 05-09-2024 Patient encounter procedure 05/09/2024 9:00 AM EDT Office Visit Rheumatology [address] [facility] [place] [address] Nidia Ascencio, COLOR DIPPER.ACCOUNTING FILE CLERK [address] [facility] [place] [address] Return labs in 1 month, for reclast and ov in 1-2 months after labs Rheumatology Comment on above: Return labs in mon , for reclast and ov in 1-2 months after labs Start: 2024 RSV Vaccine (1 - 1-d ose 60+ series) RSV Vaccine (1 - 1-dose 60+ series) [facility] Start: 2024 RSV Vaccine (1 - Ris k 60-74 years 1-dose series) RSV Vaccine (1 - Risk 60-74 years 1-dose series) [facility] Start: 04-13-2024 End: 07-13-2024 25-hydroxyvitamin D3 [Mass/volume] in Serum or Plasma VITAMIN D 25 HYDROXY Lab Routine Rheumatoid arthritis involving multiple sites with positive rheumatoid factor (HCC) Vitamin D deficiency Expected: 04/13/2024 (Approximate), Expires: 07/13/2024 [facility] Comment on above: Expected: 04/13/2024 (Approximate), Expires: 07/13/2024 Start: 04-13-2024 End: 07-13-2024 C reactive protein [Mass/volume] in Serum or Plasma C-REACTIVE PROTEIN Lab Routine Rheumatoid arthritis involving multiple sites with positive rheumatoid factor (HCC) Expected: 04/13/2024 (Approximate), Expires: 07/13/2024 [facility] Comment on above: Expected: 04/13/2024 (Approximate), Expires: 07/13/2024 Start: 04-13-2024 End: 07-13-2024 Erythrocyte sedimentation rate SEDIMENTATION RATE, WESTERGREN Lab Routine Rheumatoid arthritis involving multiple sites with positive rheumatoid factor (HCC) Expected: 04/13/2024 (Approximate), Expires: 07/13/2024 [facility] Comment on above: Expected: 04/13/2024 (Approximate), Expires: 07/13/2024 Start: 04-13-2024 End: 07-13-2024 Renal function 2000 panel - Serum or Plasma RENAL FUNCTION PANEL Lab Routine Rheumatoid arthritis involving multiple sites with positive rheumatoid factor (HCC) Expected: 04/13/2024 (Approximate), Expires: 07/13/2024 [facility] Work Phone: Comment on above: Expected: 04/13/2024 (Approximate), Expires: 07/13/2024 Start: 04-13-2024 End: 04-13-2025 XR Hand - bilateral PA and Lateral and Oblique XR HAND GENERAL 3V PA/LAT/OBL BILATERAL Radiology Routine Rheumatoid arthritis involving multiple sites with positive rheumatoid factor (HCC) Expected: 04/13/2024 (Approximate), Expires: 04/13/2025 [facility] Comment on above: Expected: 04/13/2024 (Approximate), Expires: 04/13/2025 Start: 11-16-2023 Behavioral Health Screening Behavioral Health Screening [facility] Start: 11-16-2023 Depression Assessment Depression Ass essment [facility] Start: 08-22-2023 DIABETES SCREEN DIABETES SCREEN [facility] Start: 07-17-2023 Influenza vaccination [facility] Start: 07-04-2023 End: 09-03-2023 25-hydroxyvitamin D3 [Mass/volume] in Serum or Plasma VITAMIN D 25 HYDROXY Lab Routine Other osteoporosis without current pathological fracture Expected: 07/04/2023 (Approximate), Expires: 09/03/2023 [facility] Work Phone: Comment on above: Expected: 07/04/2023 (Approximate), Expires: 09/03/2023 Start: 07-04-2023 End: 09-03-2023 MONOCLONAL PROT UR W/INTERP MONOCLONAL PROT UR W/INTERP Lab Routine Elevated serum immunoglobulin free light chain level Expected: 07/04/2023 (Approximate), Expires: 09/03/2023 [facility] Work Phone: Comment on above: Expected: 07/04/2023 (Approximate), Expires: 09/03/2023 Start: 07-04-2023 End: 09-03-2023 Renal function 2000 panel - Serum or Plasma RENAL FUNCTION PANEL Lab Routine Other osteoporosis without current pathological fracture Expected: 07/04/2023 (Approximate), Expires: 09/03/2023 [facility] Work Phone: Comment on above: Expected: 07/04/2023 (Approximate), Expires: 09/03/2023 Start: 12-29-2022 End: 02-28-2023 25-hydroxyvitamin D3 [Mass/volume] in Serum or Plasma VITAMIN D 25 HYDROXY Lab Routine Vitamin D deficiency Expected: 12/29/2022, Expires: 02/28/2023 [facility] Work Phone: Comment on above: Expected: 12/29/2022 , Expires: 02/28/2023 Start: 11-16-2022 DEPRESSION ASSESSMENT DEPRESSION ASS ESSMENT [facility] Start: 07-17-2022 Influenza vaccination INFLUENZA (#1) [facility] Start: 07-17-2021 Influenza vaccination INFLUENZA (#1) [facility] Start: 04-15-2021 COVID-19 VACCINE (2 - Starr risk 3-dose series) COVID-19 VACCINE (2 - Starr risk 3-dose series) [facility] Start: 04-15-2021 COVID-19 VACCINE (2 - Starr risk series) COVID-19 VACCINE (2 - Starr risk series) [facility] Start: 05-03-2020 PNEUMOCOCCAL (3 - PPSV23 if available, else PCV20) PNEUMOCOCCAL (3 - PPSV23 if available, else PCV20) [facility] Start: 05-03-2020 PNEUMOCOCCAL (3 - PPSV23 or PCV20) PNEUMOCOCCAL (3 - PPSV23 or PCV20) [facility] Start: 05-03-2020 Pneumococcal vaccination Pneumococcal Vaccine (3 of 3 - PPSV23 or PCV20) [facility] Start: 05-03-2020 Pneumococcal Vaccine : 50+ (3 of 3 - PPSV23, PCV20 or PCV21) Pneumococcal Vaccine: 50+ (3 of 3 - PPSV23, PCV20 or PCV21) [facility] Start: 02-11-2020 Adult depression screening assessment DEPRESSION SCREENING [facility] Start: 2019 PROSTATE CANCER SCREENING DISCUSSION PROSTATE CANCER SCREENING DISCUSSION [facility] Start: 2019 Prostate specific antigen measurement Prostate Cancer Screening Discussion [facility] Start: 2014 SHINGRIX VACCINE (1 of 2) SHINGRIX VACCINE (1 of 2) [facility] Start: 2009 COLOGUARD (FIT-DNA) COLOGUARD (FIT-D NA) [facility] Start: 2009 Colonoscopy COLONOSCOPY [facility] Start: 2009 COLORECTAL CANCER SCREENING COLORECTAL CANCER SCREENING [facility] Start: [address] COLONOGRAPHY [facility] Start: 2009 FECAL OCCULT BLOOD FECAL OCCULT BLOO D [facility] Start: 2009 Prostate specific antigen measurement Prostate Cancer Screening Discussion [facility] Start: 2009 Screening for malign ant neoplasm of colon [facility] Start: 2009 SIGMOIDOSCOPY SIGMOIDOSCOPY [facility] Start: 1999 Lipid panel Lipid Screening [facility] Start: 1999 LIPID SCREEN LIPID SCREEN [facility] Start: 1983 SHINGRIX VACCINE (1 of 2) SHINGRIX VACCINE (1 of 2) [facility] Start: 1983 Urine microalbumin profile [facility] Start: 1982 Anxiety Screening Anxiety Screening [facility] Start: 1982 Depression Screening Depression Scre ening [facility] Start: 1982 HIV SCREENING HIV SCREENING [facility] Start: 1982 HIV screening HIV Screening [facility] Start: 1982 MMR Vaccine (1 of 2 - Risk 2-dose series) MMR Vaccine (1 of 2 - Risk 2-dose series) [facility] Start: 1974 Meningococcal B Vaccine: Consider Based On Risk (1 of 4 - Increased Risk) Meningococcal B Vaccine: Consider Based On Risk (1 of 4 - Increased Risk) [facility] Start: 1964 Screening for malign ant neoplasm of colon [facility] End: 11-04-2025 BD DXA TRABECULAR BONE SCORE (TBS) BD DXA TRABECULAR BONE SCORE (TBS) Radiology Routine Seropositive rheumatoid arthritis (HCC) Ulcerative pancolitis (HCC) Other osteoporosis without current pathological fracture History of bisphosphonate therapy 1 Occurrences starting 10/05/2024 until 11/04/2025 [facility] Comment on above: 1 Occurrences starti ng 10/05/2024 until 11/04/2025 BD DXA TRABECULAR LIMA NE SCORE (TBS) BD DXA TRABECULAR BONE SCORE (TBS) Radiology Routine Seropositive rheumatoid arthritis (HCC) Ulcerative pancolitis (HCC) Other osteoporosis without current pathological fracture History of bisphosphonate therapy 06/06/2025 8:13 AM EDT [facility] End: 11-04-2025 DXA Skeletal system.axial Views for bone density DXA-AXIAL SKELETON Radiology Routine Seropositive rheumatoid arthritis (HCC) Ulcerative pancolitis (HCC) Other osteoporosis without current pathological fracture History of bisphosphonate therapy 1 Occurrences starting 10/05/2024 until 11/04/2025 [facility] Comment on above: 1 Occurrences starti ng 10/05/2024 until 11/04/2025 DXA Skeletal system.axial Views for bone density DXA-AXIAL SKELETON Radiology Routine Seropositive rheumatoid arthritis (HCC) Ulcerative pancolitis (HCC) Other osteoporosis without current pathological fracture History of bisphosphonate therapy 06/06/2025 8:[address] [facility] Work Phone: [facility] Immunizations Immunization Date Immunization Notes Care Provider Feng diaz 10-11-2024 influenza virus vacc ine, unspecified formulation Bone Maria De Jesus [facility] 06-09-2022 zoster vaccine recombinant Nidia Silva COLOR DIPPER.ACCOUNTING FILE CLERK Work Phone: [facility] 03-17-2022 zoster vaccine recombinant Nidia Silva COLOR DIPPER.ACCOUNTING FILE CLERK Work Phone: [facility] 09-27-2020 Influenza, injectabl e, Madin Gorin Canine Kidney, preservative free, quadrivalent Nidia Silva COLOR DIPPER.ACCOUNTING FILE CLERK Work Phone: [facility] 09-27-2020 influenza virus vacc ine, unspecified formulation Nidia Ascencio COLOR DIPPER.ACCOUNTING FILE CLERK Work Phone: [facility] 10-28-2019 Influenza, injectabl e, Madin [place] Canine Kidney, quadrivalent with preservative Darrian Dubon MD Work Phone: [facility] 08-29-2019 influenza, injectabl e, quadrivalent, preservative free Nidia Silva ADEOLA.ACCOUNTING FILE CLERK Work Phone: [facility] 08-15-2016 influenza, injectabl e, quadrivalent, preservative free Darrian Dubon MD Work Phone: [facility] 12-08-2015 hepatitis A and hepa titis B vaccine Darrian Dubon MD Work Phone: [facility] 11-01-2015 pneumococcal conjuga te vaccine, 13 valent Darrian Dubon MD Work Phone: [facility] 07-31-2015 influenza, seasonal, injectable, preservative free Darrian Dubon MD Work Phone: [facility] 05-31-2015 hepatitis A and hepa titis B vaccine Darrian Dubon MD Work Phone: [facility] 05-03-2015 hepatitis A and hepa titis B vaccine Darrian Dubon MD Work Phone: [facility] 05-03-2015 pneumococcal polysaccharide vaccine, 23 valent Darrian Dubon MD Work Phone: [facility] Payers Date Payer Category Payer Medicare DEVOTED MEDICARE DEVOTED HEALTH [id number] 2021-Present [phone] [address] [place] [address] [facility] [id number] 2021 Medicare (Managed Care) DEVOTED HEALTH [id number] 2021 Private Health Insurance [facility] H[facility] [id number] .[id number] 2021 Unknown [id number] 2011 Medicare [id number] .[id number] 1964 Unknown [id number] 2.16.840.1.982476.3.579 .2.593 1964 Unknown [id number] 2.16.840.1.615088.3.579 .2.593 1964 Unknown [id number] 2.16.840.1.663997.3.579 .2.593 1964 Unknown [id number] 2.16.840.1.942907.3.579 .2.593 1964 Unknown [id number] 2.16.840.1.517382.3.579 .2.727 1964 Unknown [id number] 2.16.840.1.300156.3.579 .2.1259 1964 Unknown [id number] 2.16.840.1.549021.3.579 .2.1259 1964 Unknown [id number] 2.16.840.1.330487.3.579 .2.1259 1964 Unknown [id number] 2.16.840.1.259361.3.579 .2.9 1964 Unknown [id number] 2.16.840.1.533530.3.579 .2.9 1964 Unknown [id number] 2.16.840.1.684469.3.579 .2. 1964 Unknown [id number] 2.16.840.1.289101.3.579 .2. 1964 Unknown [id number] 2.16.840.1.804723.3.579 .2 1964 Unknown [id number] 2.16.840.1.819440.3.579 .2 1964 Unknown [id number] 2.16.840.1.258377.3.579 .2 1964 Unknown [id number] 2.16.840.1.860390.3.579 .2 1964 Unknown [id number] .16.840.1.330746.3.579 .2 1964 Unknown [id number] 2.16.840.1.697300.3.579 .2 1964 Unknown [id number] 2.16.840.1.787215.3.579 .2 1964 Unknown [id number] 2.16.840.1.158232.3.579 .2 1964 Unknown [id number] 2.16.840.1.740759.3.579 .2 1964 Unknown [id number] 2.16.840.1.166084.3.579 .2 1964 Unknown [id number] 2.16.840.1.695737.3.579 .272 Private Health Insurance Self Pay [id number] Self-pay Self Pay [id number] Social History Date Type Detail Facility Tobacco smoking stat us [facility] Unknown if ever smoked [facility] Start: 1965 Sex Assigned At Male [facility] Start: 01-24-2020 End: 12-01-2023 Tobacco smoking status NHIS Ex-smoker [facility] Start: 01-24-2020 End: 12-01-2023 Tobacco use and exposure Smokeless tobacco non-user [facility] Start: 02-20-2021 End: 05-09-2024 Alcohol intake Lifetime non-drinker (finding) [facility] Start: 01-24-2020 History SDOH Alcohol Frequency 1 [facility] Start: 01-24-2020 End: 12-01-2023 Tobacco Comment quit in 2011 [facility] Start: 1965 Sex Assigned At Not on file [facility] Start: 01-19-2022 End: 01-29-2022 Exposure to SARS-CoV-2 (event) Unable to assess [facility] End: 11-16-2011 History of tobacco use Current smoker [facility] Start: 01-24-2020 End: 05-04-2023 History of Social function [facility] Start: 01-24-2020 End: 05-04-2023 Alcohol Use Disorder Identification Test - Consumption [AUDIT-C] [facility] How often to you hav e a drink containing alcohol? Never [facility] Average Number of Drinks Not on file [facility] Start: 07-23-2020 End: 02-20-2021 Exposure to SARS-CoV-2 (event) Not sure [facility] End: 11-16-2011 History of tobacco use Cigarette Smoker [facility] Start: 04-21-2023 Tobacco use and exposure Former smokeless tobacco user [facility] Start: 06-16-2023 End: 05-03-2025 Alcoholic beverage intake Ex-drinker (finding) [facility] Start: 04-06-2023 Alcohol Comment Caffeine: more than 4 cups per day [facility] Healthcare Goals Date Patient Goal Desired [...] hepatitis A-hepatitis B vaccine 05/03/2015 Recorded [facility] 06-06-2025 Instructions Darrian Dubon MD - 06/06/2025 8:46 AM EDT -PLEASE NOTE THAT WE REVIEW ALL YOUR TEST RESULTS AT YOUR NEXT FOLLOW UP VISIT WITH YOU. IF ANY ABNORMAL LAB REQUIRES SOONER ATTENTION, WE WILL CONTACT YOU. -If you have signed up on [employer], we will release your test results through [employer]. I wish you the best of health [...] discuss your RA. Continue following with your Route Service Representative. Great work on your bone density. You [...] Additional information on methotrexate available at: The [place] [employer] website : https://www.rheumatology.org/I-Am-A/Ernesto wyatt-Caregiver/Treatments/Methotrexat l-Wkoqasxnui-Izxyyiz and The [facility] website : https://.[facility]/health/ drugs/57994-amfzvonirlfj - Please take your vitamin D with [...] track your nutrition and calcium intake on www.CrossMedia.myinfoQ This provides macro and micronutrient intake and requirements. - You can track your calcium intake on [employer] Americaometer.myinfoQ or any other calcium tracker of your [...] youtube and copy and paste this link: [email or web address] Corpu.be/[email or web address] This is done by a Physical Medicine and Rehab doctor who is a victorian literature professor in [employer] [facility]. She completed a PhD at the [employer]. I hope you find it helpful. Please take precautions and start gradual when starting a new exercise program. - I recommend reviewing the exercises from the LIFTMOR study. If you are interested in considering these strength training exercises you will need to work with a Clinical Assessment Manager or Physical Therapist, as they need to [...] low bone mass. BMJ Open. 2017 Apr 12;7(6):b930878. doi: 10.1136/aqhwmxm-1455-639396. PMID: 18867553; PMCID: [id number]. -Twin Nick, Chetan Gamble, Rosa Maria MONTANO, Shankar WICK. A Comparison of Bone-Targeted Exercise Strategies to Reduce Fracture Risk in Middle-Aged and Older Men with Osteopenia and Osteoporosis: LIFTMOR-M Semi-Randomized Controlled Trial. J Bone [place] Res. 2020 Jun;35(8):8052-8325. doi: 10.1002/jbmr.4008. Epub 2019Feb 12. PMID: 66809081. Information regarding Whole Body Vibration Plate: You can review this article. Ref: Aparicio RDJ, Aparicio RG, Aparicio LC, Arlene BURT, Shayla Robledo DC, Aníbal Villlaobos. Effectiveness of whole-body vibration on bone mineral density in postmenopausal women: a systematic review and meta-analysis of randomized controlled trials. Osteoporos Int. 2022;34(1):29-52. doi: 10.1007/p16112-643-17335-b. Epub 2021Sep 09. PMID: 12497294. Their conclusion: only high frequency associated with [...] legumes, soybeans and other beans) - [place] (potatoes, avocados, almonds, peanuts) - Chromium (broccoli, [...] Ther Adv Musculoskelet Dis. 2011 Oct;3(6):293-300. doi: 10.1177/7671067C05967609. PMID: 60150784; PMCID: [id number]. -SUDHEER Carrillo., NYLA Dodson., GHAZAL Flores. et al. Soy isoflavone intake inhibits bone resorption and stimulates bone formation in menopausal women: meta-analysis of randomized controlled trials. Eur J Clin Nutr 62, 155-161 (2007). https://doi.org/10.1038/sj.ejcn.286497 8 -Clyde Rosa, Trisha Lara, Harry De Leon. et al. Isoflavone intervention and its impact on bone mineral density in postmenopausal women: a systematic review and meta-analysis of randomized controlled trials. Osteoporos Int (2022). https://doi.org/10.1007/b89693-149-898 44-y -Jack Finch, Trisha Lara, Clyde Grant et al. Effects of isoflavone interventions on bone mineral density in postmenopausal women: a systematic review and meta-analysis of randomized controlled trials. Osteoporos Int 31, 1372-0733 (2020). https://doi.org/10.1007/e73750-123-429 76-z - Benefits of consuming soy in whole foods are listed in this article at the [facility] website: https://www.pcr.org/good-nutrition/nu trition-information/rfc-qid-wxzpfr - Prunes have been reported to help [...] Am J Clin Nutr. 2021Aug 21;116(4):897-910. doi: 10.1093/ajcn/nshf267. PMID: 12144943. -Benefit to bone density and inflammation: Hebert WYMAN, Perrin, Glory HL, Sivakumar DE LEONA, Trey CJ. The Role of Prunes in Modulating Inflammatory Pathways to Improve Bone Health in Postmenopausal Women. Adv Nutr. 2021Aug 17;13(5):9819-0029. doi: 10.1093/advances/wniz249. PMID: 80880496; PMCID: OGH5121678. - Information on Vitamin K2: more recently [...] with the exception of Natto (a traditional [place] Islander food made from fermented soybeans) has [...] of these foods, please consult with your Content Engineer or Physician first. Review of Osteoporosis medications [...] femur. You can read more at these [facility] web links: https://.[facility]/health/ treatments/19486-vyamgwdrdelbbnt For Fosamax/alendronate: https://.[facility]/health/ drugs/40324-yzljezhlhny-cadgzto For Actonel/risedronate: https://Eko.[facility]/health/ drugs/71558-tfruihzoskg-flxk-awpbraeKs r Reclast/zoledronic acid: https://Eko.[facility]/health/ drugs/82985-dgyacomhse-ugqg-uzjbfabaw- szyuwe-esdpcfy-pxdrwxdeqtro -Subcutaneous Prolia: this is one injection every 6 months, given by the nurse in the office. This medication is given half-way, indefinitely. Prolia should not be discontinued without [...] looked into transition therapy. Recent study from [facility] Slim et al, 04/11/2020 (PMID: 52142345.The study is ongoing, clinicaltrials.gov; [id number]), reported one infusion of IV Reclast did [...] femur. You can read more at these [facility] web links: https://my.el paso[employer].org/health/ drugs/72553-ivsicpbon-sdmxodcjk Medications that build bone density and prevent [...] etc... You can read more at these [facility] web links: For Forteo/teriparatide: https://my.Bapul.org/health/ drugs/02646-goqkersfqfio-wtrimskke For Tymlos/abaloparatide: https://Eko.Bapul.org/health/ drugs/23158-bbviylncgiqvs-dembpvvbd Medication that both prevents bone loss and [...] We may need a clearance from a Photographic Laboratory Supervisor prior to proceeding with this medication in patients who have a cardiovascular disease history. This is only prescribed for 1 year and then needs to be followed by anti-resorptive therapy, according to recommendations. You can read more at these [facility] web links: For Evenity/romosozumab: https://my.[facility].org/health/ drugs/86648-vqwzszunajx-ksodwnvpf Other less potent Osteoporosis medications, such as [...] available medications were provided: Link to the [place] [employer] website at: https://www.rheumatology.org/I-Am-A/Ernesto greennt-Caregiver/Diseases-Conditions/Os teoporosis Link to the [facility] web link at: On Osteoporosis: https://my.[facility].org/health/ diseases/4443-osteoporosis On Osteopenia: https://my.[facility].org/health/ diseases/08769-avrlcezycm - Additional information on Bone Health and [...] Osteoporosis Foundation) http://www.osteo.org/osteolinks.asp National Institutes of Health: 3-224-147-BONE The Calcium Information Center: Non-Dairy, Plant based Milk, can contain in1 glass up to 450 mg of calcium (300 to 450 mg) Exampled include Oat Milk, Flax Milk, Corea Milk, Cashew Milk, Soy Milk, Peas Milk Examples of Food Sources of Calcium from NIH Food Milligrams (mg) per serving Percent DV* Soymilk, calcium-fortified, 8 ounces 299 30 Ruby juice, calcium-fortified, 6 ounces 261 26 Tofu, firm, made with calcium sulfate, cup* 253 25 Tofu, soft, made with calcium sulfate, cup* 138 14 Rqvvi-ts-muc cereal, calcium-fortified, 1 cup 100-1,000 10-100 Turnip greens, fresh, boiled, cup 99 10 Kale, raw, chopped, 1 cup 100 10 Kale, fresh, cooked, 1 cup 94 9 Nigerien cabbage, bok marin, raw, shredded, 1 cup 74 7 Bread, white, 1 slice 73 7 Tortilla, corn, iicgh-si-gtjo/marshall, one 6 diameter 46 5 Tortilla, flour, aokid-gm-qtls/marshall, one 6 diameter 32 3 Bread, whole-wheat, [...] daily with a meal; Certain patients require 9479-7469 international units daily and in patients deficient [...] bones. Studies show approximately 50% of [place] men and women are vitamin D deficient [...] of falling. Additional Information is available from: [facility] Osteoporosis Information: https://.[facility].org/departm ents/orthopaedics-rheumatology/depts/o steoporosis-metabolic The Bone Health and Osteoporosis Foundation (formerly the National Osteoporosis Foundation) : https://www.bonehealthandosteoporosis. org International Osteoporosis Foundation: https://www.osteoporosis.foundation http://ods.od.nih.gov/factsheets/vitam ind.asp National Institutes of Health: 5-642-972-BONE The Calcium Information [place]: I recommend following a healthy lifestyle. You [...] that features the Whole Plant Based diet, Kaleva over knives (see video online and visit website). Another movie that was recently released is: Eating You Alive (you can find it at Gritness) and The [employer] movie Dr. Fauzia Ansari is a [facility] physician who has done research and published books, is an expert in Whole Plant based diet for prevention and reversal of heart disease. His website is TripleLift. 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 Rock Velazco's Program for Reversing Diabetes, Your Body in Balance You can also watch YouTube channel : The Doc & Emergency Detail Driver Dr. Anthony Carlson has shown the benefit of a starch based whole food plant based diet to his Rheumatoid Arthritis patients, as well as patient with diabetes II, hypertension, obesity, multiple sclerosis, heart disease, acne, and other, his website: www.debra.myinfoQ Dr. Yayo Allred is a renowned clinical cytogeneticist scientist, who has studied and researched the benefits of the Whole plant based diet. He has also researched the adverse effects of animal proteins on health. He presents many of his research findings in his book The [place] study. Dr. Gerber Becker has completed many research trials proving the reversal of diseases, such as heart disease and early prostate cancer, with healthy lifestyle and the Whole Plant based diet. Dr. Gerber Becker website is: www.[employer].myinfoQ His new book: Undo It, has evidence based information and guide to following this healthy lifestyle. Dr. Cody Dillon has dedicated a website and additional time to reviewing all food related articles and research and presents them in his power point presentation and on his website at: nutritionfacts.org which is all free. Dr. Dillon has multiple free videos and YouTube, for example https://youKaonetics Technologiesu.be/aSgNkhgVtks and https://Join The Wellness Team.be/lXXXygDRyBU. He has written multiple books including: How Not To and How Not To Diet He is now working on his next book: How Not To Age Dr. Danitza Dash (from the [facility]), has articles on the following website: Health Catalyst.myinfoQ For additional ideas on recipes, you could find additional information on practical to follow recipes by reading or watching online and YouTube such as: Chef BELLE, Cooking With Plants, The Vegan Corner (recipes from an [place] Emergency Detail Driver), The Whole Foods Plant Based Cooking Show and visiting the provided websites for additional information on the whole plant based benefit and cooking recipes. You can also consider watching the vlogs of some of the plant based Athletes such as Fausto Ewing Derek on VoteIt. You can find very good recipes for [...] Dr. Jenny Degroot Lifestyle Medicine (is a Photographic Laboratory Supervisor and Lifestyle Medicine Physician) -Sometimes it helps to start with a simple diet of potatoes, that Dr. Carlson calls Yarelis Mini. You can learn more about that in his website: www.Surefire Social This is the website for Yarelis Butler pdf : https://www.Surefire Social/wp-content /uploads//Georgiana-Carrie_Website_Pr int_Version-1.pdf You can also read more on Dr. Carlson's website - When you goal is to lose weight, it is important to listen to your hunger cues. Don't eat until you are stuffed. As soon as you feel you are no longer hungry, stop eating. There is a [place] Islander saying that says Tammie Vega, meaning eat until you are 80% full. I say avoid eating past 80% of your stomach fullness. This originated from the city [facility], which is one of the sites reported in the Blue TLBX.me book, one of the highest cities in the world for having the most centenarians. Remember your stomach needs space and capacity for proper digestion of your food. Like a mexican food cook or a associate product manager, they have a limit for proper function, and should not be filled to the top. You can read more about that from the [facility] article Don t Eat Until You re Full ? Instead, Mind Your Tammie Vega Point , at https://health.[facility].org/don g-kpb-cspol-ictmj-suyt-hsyaqyq-mind-yo so-vgfp-ntvje-salvador-point/ Most plants contain proteins and all essential [...] you will need to consult with a capacity planning engineer to have further evaluation to exclude Celiac [...] - Gentle Yoga Anyone Can Do Anywhere www.e[employer].myinfoQ/yoga Also on youtube: yoga with Karlie For women, especially after menopause, strength training is important. You can read more on that from Clare Morley, PhD at her website https://www.OwnLocal and YouTube videos. If you are a beginner, it is best to start with a physical therapist or household personal assistant. There are also several Aps that offer virtual personal training 3- Good Sleep (poor sleep impacts everything, recommended sleep is 7 to 8 hrs. a night). Certain people may need more sleep, depending on their age and other conditions. Meditation and relaxation techniques have shown to help with improving sleep. Try to be consistent with your sleep. You can find more at the [facility] Website on : https://Eko.el pasoArtisan Pharma.org/Hairdressrm ents/wellness/store/go-well#sleep-tab 4- Stress management, be happy, laugh [...] Calm Insight Timer Meditation Stress Free Now ([facility]). You can find more resources at the [facility] website at : https://Mirics Semiconductorst. anthony's hospitalMeinProspekt.org/departNiles Media Group ents/wellness/store/go-well#stress-iron e-tab There are many free youtube videos on guided meditation as well For Breathing techniques: You can watch John Carlisle and learn the breathing technique and its benefits by watching the following YouTube: https://CSS Corpu.be/6Ht6Y-LHb80?si=-Xtdfr 4UpsJOUbDU. Learning about your awareness/spiritual being, is [...] work with a psychotherapist or behavioral health basketball coach. When having a psychiatric condition, [...] or a higher dose. Raw: Garlic, Cilantro, [place] nuts, Pumpkin seeds, Cash seeds and Flax seed powder have been reported to help with certain metal detoxification such as mercury. [place]-3 plant based rich foods are good anti-inflammatory [...] the Whole Plant Based Diet, by watching Kaleva over KnVoxel (Internap) movie and then review website. There are many other resources and educational information on the Whole plant based diet on the Internet and documentaries. There are other resources for wellness that you can also benefit from, such as the [facility] Wellness website, [facility] and includes Plant based and Mediterranean diet, yoga and meditation. Please avoid all dairy products. You could use non-dairy milk such as Flax milk, Cashew milk, Corea milk, Rice milk, Oat milk or Hemp [...] below, just add the ingredients to your associate product manager and blend: - Probably the healthiest smoothie is one that contains mostly green leafy vegetables (especially containing kale), some berries, flax seed and water. This might not turn down worker to be sweet. You can add one or two pitted dates or a frozen banana for natural sweetness. Examples of healthy green smoothies, pack your associate product manager (at least half way to 3/4) with a mix of green leafy veggies, then top your associate product manager with fruits (such as banana or frozen raul or pineapple, peaches, apricots, apples, grapes), a tablespoon of flax or david seeds, then add water or unsweetened coconut water and blend until smooth. You can also add turmeric in this recipe. Do not only use spinach as they tend to be high in oxalates and can be risk for kidney stones. The same with monegasque chards and beet leaves. If you don't [...] of your health and wellbeing. At the [facility], we work as a team for your care, along with Nurse Practitioners, Physician Assistants, Nurses and Medical Assistants. It is a privilege and honor to serve you. Thank you for choosing [facility] for your healthcare. Sincerely, aDrrian Dubon MD documented in this encounter [facility] 06-06-2025 Note HNO ID: [id number] Author: DARRIAN DUBON MD Service: ? Author Type: Physician Type: Progress Notes Filed: 06/07/2025 15:19 Note Text: FOLLOW UP VISIT Patient's Name: Jam Erwin [facility] [id number] PCP: Jose L Lackey MD [address] [place] [address] Consult Requested by: Jose L Lackey MD [address] [facility] [address] Other physicians: Route Service Representative prev. Nel Lebron MD (his prev. capacity planning engineer left- Ronald Brown MD) ; Now following with Dr. Luis Antonio García Accompanied by: self Interim history: is here for f/u RA and OP Recording using Swank software for draft documentation of the visit was discussed with the patient/authorized traveling representative; all questions welcomed and answered. Patient/authorized traveling representative agreed to proceed Reports doing fine today, but this would be his last apt. 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 He has also been seeking local yardage tufting machine operator closer to home for him. This is [...] He is still undergoing evaluation by his capacity planning engineer for his IBD disease activity. He has been on Entyvio. [facility] he has gastrointestinal evaluation by his capacity planning engineer and states - Undergoing capsule endoscopy tomorrow to evaluate small intestine for potential tumors or bleeding. - Recent colonoscopy showed small benign tumors. States told his tumors were benign But still needs the camera States because he is bleeding and requiring His PCP and Route Service Representative are addressing his anemia and further evaluating He had iron infusion 05/26/2025 States he is on potassium and iron infusion by his Primary care physician States his Primary care physician started him on 4 tbs/wk and is comfortable with that He continues on the sulfasalazine, and states his capacity planning engineer prescribes it, as well as the Entyvio. No interim fractures Continues on vitamin D I reviewed results with patient 02/14/2025 Mr. Toscano is a very nice 59 y.o. gentleman here for f/u visit for Rheumatoid Arthritis and Osteoporosis He follows with IBD, UC, on Entyvio and sulfasalazine; [facility] had liver US and fibroscan, told no fatty liver He is no longer on anti-TNF therapy. States his PCP is treating his anemia with iron, was on supplement and switched to IV. He is not aware of bleeding, denies BRBPR and denies melena. He follows with Route Service Representative for his UC. [facility] has scopes this summer by his capacity planning engineer. He is following with Orthopedics for his osteoarthroses and non-inflammatory joint pains. He has a chronic rotator cuff tear and extensive bilateral glenohumeral degenerat (more content not included)... [facility] 06-06-2025 History of Present illness Narrative Images from the original note were not included. FOLLOW UP VISIT Patient's Name: Jam Torres Rip [address] [facility] [id number] PCP: Jose L Lackey MD [address] [place] [phone] Consult Requested by: Jose L Lackey MD [address] [place] [id number] Other physicians: Route Service Representative prev. Nel Lebron MD (his prev. capacity planning engineer left- Ronald Brown MD) ; Now following with Dr. Luis Antonio García Accompanied by: self Interim history: is here for f/u RA and OP Recording using ambient Nyxoah software for draft documentation of the visit was discussed with the patient/authorized traveling representative; all questions welcomed and answered. Patient/authorized traveling representative agreed to proceed Reports doing fine today, but this would be his last apt. 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 He has also been seeking local yardage tufting machine operator closer to home for him. This is [...] my God I can move again , [facility] does not feel needs to go [...] He is still undergoing evaluation by his capacity planning engineer for his IBD disease activity. He has been on Entyvio. [facility] he has gastrointestinal evaluation by his capacity planning engineer and states - Undergoing capsule endoscopy tomorrow to evaluate small intestine for potential tumors or bleeding. - Recent colonoscopy showed small benign tumors. [facility] told his tumors were benign But still needs the camera [facility] because he is bleeding and requiring His PCP and Route Service Representative are addressing his anemia and further evaluating He had iron infusion 05/26/2025 States he is on potassium and iron infusion by his Primary care physician States his Primary care physician started him on 4 tbs/wk and is comfortable with that He continues on the sulfasalazine, and states his capacity planning engineer prescribes it, as well as the Entyvio. No interim fractures Continues on vitamin D I reviewed results with patient 02/14/2025 Mr. Toscano is a very nice 59 y.o. gentleman here for f/u visit for Rheumatoid Arthritis and Osteoporosis He follows with IBD, UC, on Entyvio and sulfasalazine; [facility] had liver US and fibroscan, told no fatty liver He is no longer on anti-TNF therapy. States his PCP is treating his anemia with iron, was on supplement and switched to IV. He is not aware of bleeding, denies BRBPR and denies melena. He follows with Route Service Representative for his UC. [facility] has scopes this summer by his capacity planning engineer. He is following with Orthopedics for his osteoarthroses and non-inflammatory joint pains. He has a chronic rotator cuff tear and extensive bilateral glenohumeral degenerative disease. His s/p b/l TKR and rt THR. Hissed rate was elevated at 79 04/2024 at time of his pneumonia. He continues on sulfasalazine and Entyvio by his capacity planning engineer. He does not describe RA related symptoms No jt pains or swelling outside of the LLE from TKR Denies rheum nodules No stiffness He is on sulfasalazine per capacity planning engineer for his UC and this has been controlling his RA He is pleased with his treatment regimen He also states that his IBD is well controlled, states told is in remission, on Entyvio Doing exercise and working with household personal assistant at the gym and will be going [...] in IBD and is following with local capacity planning engineer for that. Has been on Humira since Sep 2020 (started with 80 mg loading dose and since has been on 40 mg every 2 wks) He was pleased with Enbrel response to his RA and later was switched to Humira, reports has similar benefit and is pleased with response. His capacity planning engineer switched him to Humira for optimal mgt of IBD and he feels this has helped his IBD better. Reports still gets 8 BM's a day, does not have BM at night, does not have to wake up from sleep. Has been following with his capacity planning engineer for his UC Had colonoscopy 11/22/2021 with reported marked improvement in asc/transv/desc colon and severe active in rectum, histopath with active colitis with erosions. States Dr. Lebron has started him on rectal enemas. Recent colonoscopy with reported active colitis. He tells me that he continues to have multiple BM's; His capacity planning engineer prescribed pred. course, completed recently. No jt [...] us, he is on Humira per his Route Service Representative He is off Enbrel, was switched to Humira by his capacity planning engineer. (previously was on Enbrel 25 mg twice a wk and has been in remission since on Enbrel and very pleased with his treatment regimen) He is on Humira 40 mg every 2 wks by his Route Service Representative He is on sulfasalazine, Humira and mesalamine enemas per his capacity planning engineer I have reviewed benefits of a whole food plant based diet He consumes dairy, cheese, sausage, hamburger. I have advised him on avoiding meats and dairy and reviewed reports and patient experience with flare of IBD and RA, as well as gastrointestinal dysbiosis. I advised him on a whole foods plant based diet. He has a associate product manager ([employer]) and interested in making healthy smoothies and [...] in this patient with known rheumatoid arthritis. Agronomy Location Manager: CODY Transcribe Date/Time: Feb 20 2021 9:52A [...] site where has fallen arch. Has seen Change Control Specialist in the remote past for the fallen arch, not recently. Feels gets stiff when not moving as much. Denies any injury or trauma. Denies any pain to me today States his capacity planning engineer has prescribed prednisone course due to IBD flare States after scope was told is flared. He is on sulfasalazine and budesonide and his capacity planning engineer and since has switched him from Enbrel [...] Alk phos isoenz: liver fraction; followed by capacity planning engineer He follows with his capacity planning engineer for hi elev alk phos and AST and for bld with stools, Dr Brown: and states he started him on iron supplement States Dr. Brown prescribed metronidazole, for reported diarrhea. States felt it made a difference. States he gave him enemas and told that is for his ulcerative colitis and prescr. sulfasalazine. In 2019, has also followed with his capacity planning engineer for blood with stools, and had flex sig and told he was inflamed from his Ulcerative colitis. [facility] had colonosc and EGD in [...] systems reviewed and are negative DXA Model: ClickGanic W 103106M SITE SCANNED: Lumbar spine and left hip [...] were all normal. He follows with his capacity planning engineer for his ulcerative colitis and is on sulfasalazine. He was told by his capacity planning engineer to avoid sun exposure due to this med, had skin itching last summer. He had evaluation for elevated AST and alk phos. Alk phos has improved and AST has been borderline elevated. I have advised him to f/u with his capacity planning engineer for his elevated alk phos (liver fraction) States his capacity planning engineer did an US of his liver twice and was told was normal. He denies any alcohol consumption or acetaminophens. His isoenzyme indicated predom. of liver origin. The patient reports that his capacity planning engineer completed evaluation and told his liver is fine. His liver US was unremarkable . His anemia has resolved since his UC has been controlled. States saw his capacity planning engineer, Dr. Lebron, recently and states told him [...] and denies hematuria or dysuria. DXA Model: ClickGanic W [id number] SITE SCANNED: Lumbar spine and left hip [...] states not bad . has seen a yardage tufting machine operator in the past, in [place], Dr. Whitfield. States used to be on [...] 500mg q 6hrs. 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 Lackey Smoking: quit [...] Abs Lymph 1.00 - 4.00 k/uL 3.02 [place]% 9.7 Abs [place] 0.00 - 0.86 k/uL 0.79 Eosin% 0.0 [...] Negative Negative Ketones, Urine Negative Negative Specific [place], Ur 1.005 - 1.030 1.008 Hemoglobin/Blood,Ur Negative 3+ (A) pH, Urine 4.5 - 8.0 6.0 Protein, Urine Negative mg/dL Negative Urobilinogen Normal Normal Nitrites Negative Negative Leukest Negative Negative Comments SEE COMMENT Urine Adan Comment SEE COMMENT WBC, Urine 0 - 5 /HPF 0-5 RBC, Urine 0 - 3 /HPF >25 (A) Sm Antibody <1.0 AI <0.2 ALLERGIST/IMMUNOLOGIST PHYSICIAN Antibody <1.0 AI 1.2 (H) SSA Antibody <1.0 AI <0.2 SSB Antibody <1.0 AI <0.2 Centromere Ab <1.0 AI <0.2 Scleroderma Ab, IgG <1.0 AI <0.2 Milagro 1 Antibody <1.0 AI <0.2 Ribosomal ALLERGIST/IMMUNOLOGIST PHYSICIAN <1.0 AI <0.2 Chromatin Antibody <1.0 AI [...] <12 Sm Antibody <1.0 AI <0.2 Ribosomal ALLERGIST/IMMUNOLOGIST PHYSICIAN <1.0 AI <0.2 Chromatin Antibody <1.0 AI <0.2 SSA Antibody <1.0 AI <0.2 SSB Antibody <1.0 AI <0.2 ALLERGIST/IMMUNOLOGIST PHYSICIAN Antibody <1.0 AI 1.2 Scleroderma Ab, IgG [...] FINDINGS CONSISTENT WITH CHRONIC SEVERE RHEUMATOID ARTHRITIS. Agronomy Location Manager: [facility] Transcribe Date/Time: Aug 29 2015 12:56P ... Last XR Ankle - Impression Only XR ANKLE GENERAL 3V AP/LAT/OBL LT Exam End: 02/20/2021 8:42 AM (Final result) Impression: IMPRESSION: Arthritic changes demonstrating interval progression in this patient with known rheumatoid arthritis. Agronomy [facility] Transcribe Date/Time: Feb 20 2021 9:52A [...] Ta Finn M.D.01/23/2025 9:09 PM Dictation Location: SendMe Electronically authenticated by: [id number] Y Date: 01/23/2025 21:09 Dictated By: Ta [...] developed and its performance characteristics determined by [facility]'s Rajeev Rouse [facility] [place] (-PLIA). It has not been cleared or approved [...] 147 53 - 334 mg/dL Final MPA [place], Serum Date Value Ref Range Status 08/19/2018 1,020 534 - 1,267 mg/dL Final MPA [place], Serum Date Value Ref Range Status 08/19/2018 551 253 - 653 mg/dL Final MPA [place]/Lambda Ratio Date Value Ref Range Status 08/19/2018 [...] in patient's severe chronic Rheumatoid Arthritis. His capacity planning engineer has switched him to Humira as he [...] methotrexate well, continues on sulfasalazine by his capacity planning engineer He is also on Entyvio by his capacity planning engineer. -Osteoporosis DXA August 19, 2018 Lowest T-score [...] to receive intermittent steroid therapy from his capacity planning engineer. Pharmacologic therapy is still indicated and recommended, [...] RA included in the risk factors. With termite control representative systemic steroids FRAX scores would be higher). [...] Also receives labs per Primary care physician/ Route Service Representative Reviewed his labs Advised on phosph. rich diet -The patient's capacity planning engineer follows him for his UC, anemia and liver tests. He is on Entyvio and sulfasalazine per his Route Service Representative RA DMARD therapy: patient would like to [...] DMARDs needs to be adjusted to avoid half-way use of nsaids and their risk factors and adverse effect. With escalation of treatment for his RA, options include either methotrexate dose increase if labs allow and well tolerated, or he may need to resume his anti-TNF medication (either Enbrel or Humira). With being on methotrexate, folate supplement is recommended. Reports taking folate He is on sulfasalazine per his capacity planning engineer and Entyvio for his IBD (He was prev. on Enbrel 25 mg sq twice a week, or may switch to Humira if his capacity planning engineer switched him to Humira TNF inhibitor therapy, [...] on sulfasalazine for his IBD per his capacity planning engineer RE OP med: Received Reclast infusion, 5 [...] disease. Osteoporosis was likely due to previous half-way steroid therapy by other physicians over the [...] atypical and subtroch. fracture of femur with half-way use of bisphosphonates/alendronate and anti-resorptive agents, there [...] wished to proceed. Previous orders -CONSULT TO LOOM CHANGER -CONSULT TO PODIATRY Provided referral to OT for assistive devices, exercises to preserve left function Referral to design manager for foot/ankle deformities and callus care, inserts/braces/orthotics, [...] which included preparing to see the patient, [id number] patient care, completing clinical documentation, obtaining and/or [...] If he is able to find another yardage tufting machine operator closer to home or or if Dr. [...] multiple rheumatologists in this practice here at [place] who are also able to follow him, [...] is continuing his care with his local capacity planning engineer. Please see above discussion on recommendations. He will need regular labs for methotrexate and sulfasalazine monitoring. He will need a recheck CRP to ensure has improved Infection precautions are recommended while on immunosuppressive therapy (IMT) Folic acid/folate supplement is recommended while on methotrexate -He relayed you are managing his anemia and his capacity planning engineer is completing further evaluation. -His phosphorous was [...] longer prior and after. Please refer to [place] [employer] Guidelines for up to [...] appropriate immunization recommended. -Continued follow up with capacity planning engineer for IBD management and monitoring for liver disease, as they deem necessary Thank you for allowing me to participate in the care of your patient. Darrian Fischer MD Jose L Lackey MD [address] [place], [place] [id number] We reassured patient that we have been sending letters and copy of my visit note after each of his office visits. They have been faxed to his Primary care physician office Today, I have also asked my biomedical equipment technician to mail this visit note and letter to his Primary care physician office mailing address. Medical Decision Making: Problems: Moderate: 2+ stable chronic illnesses Data: Unique source(s) for external note(s) reviewed: 3+ Unique test result(s) reviewed: 3+ Discussed management or test w/ external physician/QHCP/source Medical Decision Making Level: 4 - Moderate documented in this encounter [facility] 06-06-2025 History of Present illness Narrative [...] PATIENT PRESENTS WITH AN IMPLANTABLE OR ATTACHED FILAMENT TESTER: No RADIOLOGY DEPARTMENT: Bone Density PERIPHERAL IV DATA: Not applicable SIGNED BY: RT Humza(Andrez) June 06, 2025 8:12 AM documented in this encounter [facility] 06-06-2025 Note HNO ID: [id number] Author: BLAYNE DENIS RT (R) Service: ? [...] PATIENT PRESENTS WITH AN IMPLANTABLE OR ATTACHED FILAMENT TESTER: No RADIOLOGY DEPARTMENT: Bone Density PERIPHERAL IV DATA: Not applicable SIGNED BY: RT Humza(Andrez) June 06, 2025 8:12 AM [facility] 05-31-2025 Note Nurse Consultation N ote Assessment/Plan [...] Recorded hepatitis A-hepatitis B vaccine 05/03/2015 Recorded [facility] 05-11-2025 Note Progress Note-Physic sumaya Patient: JAM TOSCANO Age: 60 years Sex: Male : 1965 Associated Diagnoses: None Author: Kody Ramos Jr., DO Postoperative Information Postoperative disposition: Postoperative disposition: Home. Optimetrix number: Optimetrix number [id number]. Anesthetic utilized: General. Physical Examination Vital Signs [...] Ambulatory Surgery Unit, and To home ). [facility] Comment on above: Result Comment: [...] activities are safe for you. ??? Take jdrt-gkx-jkltmxh and prescription medicines only as told by [...] provider. Document Revised: 02/11/2023 Document Reviewed: 02/11/2023 [employer] Patient Education ? 2023 [employer] Peptic Ulcer A peptic ulcer is [...] Helicobacter pylori or (more content not included)... [facility] 05-11-2025 Note Endoscopic Procedure Report - Other Patient: JAM TOSCANO Age: 60 years Sex: Male : 1965 Associated Diagnoses: None Author: Luis Antonio García MD Pre-Procedure Procedure Date 05/11/2025 09:39:00 . Procedure Type: Colonoscopy with removal of tumor(s), polyp(s), or other lesion(s) by snare technique, biopsy. Procedure provider Performed by Luis Antonio García MD. Current history and physical Documented on chart. Colonoscopy ([id number]) on 06/03/2024 at 59 Years. Esophagogastroduodenoscopy ([id number]) on 06/03/2024 at 59 Years. Colonoscopy ([id number]) on 02/26/2024 at 58 Years. Colonoscopy ([id number]) on 03/23/2023 at 57 Years. Cystoscopy ([id number]) on 02/04/2021 at 55 Years. Colonoscopy ([id number]). right hip replacement (484727341). replacement on both knees (846097998).. Past Medical History Resolved Extreme obesity ([id number]) : Resolved. Ulcerative colitis (735730498): Resolved.. Family History Asthma Mother Hypertension Mother Heart disease Mother Arthritis Brother Stroke Father High cholesterol Mother . Procedure History Colonoscopy ([id number]) on 06/03/2024 at 59 Years. Esophagogastroduodenoscopy ([id number]) on 06/03/2024 at 59 Years. Colonoscopy ([id number]) on 02/26/2024 at 58 Years. Colonoscopy ([id number]) on 03/23/2023 at 57 Years. Cystoscopy ([id number]) on 02/04/2021 at 55 Years. Colonoscopy ([id number]). right hip replacement (989583664). replacement on both knees (349520989).. Colorectal neoplasm risk assessment High risk UC. [...] jpg [id number]. jpg (more content not included)... [facility] Comment on above: Result Comment: Elec tronically Signed By: Ricky ROBLERO, Luis Antonio Tiwari\.br\Date and Time Signed: 05/11/25 09:42 EDT Other Comment: Sheila trinh Attachment - attachment storage system not supported [id number] Can be viewed in source system Missing Attachment - attachment storage system not supported 4479545 Can be viewed in source system Missing Attachment - attachment storage system not supported 4683034 Can be viewed in source system Missing Attachment - attachment storage system not supported 2214349 Can be viewed in source system Missing Attachment - attachment storage system not supported 3631384 Can be viewed in source system Missing Attachment - attachment storage system not supported 9707936 Can be viewed in source system Missing Attachment - attachment storage system not supported 1336067 Can be viewed in source system Missing Attachment - attachment storage system not supported 4956001 Can be viewed in source system Missing Attachment - attachment storage system not supported 2102183 Can be viewed in source system Missing Attachment - attachment storage system not supported 0409955 Can be viewed in source system Missing Attachment - attachment storage system not supported 5554675 Can be viewed in source system Missing Attachment - attachment storage system not supported 3654886 Can be viewed in source system Missing Attachment - attachment storage system not supported 8168425 Can be viewed in source system Missing Attachment - attachment storage system not supported 8389921 Can be viewed in source system Missing Attachment - attachment storage system not supported 9378717 Can be viewed in source system Missing Attachment - attachment storage system not supported 3308223 Can be viewed in source system Missing Attachment - attachment storage system not supported 8522283 Can be viewed in source system Missing Attachment - attachment storage system not supported 4472114 Can be viewed in source system Missing Attachment - attachment storage system not supported 6513664 Can be viewed in source system Missing Attachment - attachment storage system not supported 3650090 Can be viewed in source system Missing Attachment - attachment storage system not supported 7615762 Can be viewed in source system Missing Attachment - attachment storage system not supported 8730803 Can be viewed in source system Missing Attachment - attachment storage system not supported 2809348 Can be viewed in source system Missing Attachment - attachment storage system not supported 5009104 Can be viewed in source system Missing Attachment - attachment storage system not supported 4302920 Can be viewed in source system Missing Attachment - attachment storage system not supported 8067549 Can be viewed in source system Missing Attachment - attachment storage system not supported 1403271 Can be viewed in source system Missing Attachment - attachment storage system not supported 8950027 Can be viewed in source system Missing Attachment - attachment storage system not supported 9814200 Can be viewed in source system Missing Attachment - attachment storage system not supported 0018483 Can be viewed in source system Missing Attachment - attachment storage system not supported 2090472 Can be viewed in source system Missing Attachment - attachment storage system not supported 5131307 Can be viewed in source system Missing Attachment - attachment storage system not supported 9627400 Can be viewed in source system Missing Attachment - attachment storage system not supported 1980832 Can be viewed in source system Missing Attachment - attachment storage system not supported 0499246 Can be viewed in source system 05-11-2025 [...] in GI clinic in 1-2 after discharge [facility] Comment on above: Result Comment: Elec tronically Signed By: Ricky ROBLERO, Luis Antonio Tiwari\.br\Date and Time Signed: 05/11/25 09:10 EDT Other Comment: Sheila trinh Attachment - attachment storage system not supported [id number] Can be viewed in source system Missing Attachment - attachment storage system not supported 8282877 Can be viewed in source system Missing Attachment - attachment storage system not supported 8976123 Can be viewed in source system Missing Attachment - attachment storage system not supported 4855492 Can be viewed in source system Missing Attachment - attachment storage system not supported 4906031 Can be viewed in source system Missing Attachment - attachment storage system not supported 3878734 Can be viewed in source system Missing Attachment - attachment storage system not supported 7234855 Can be viewed in source system Missing Attachment - attachment storage system not supported 9235437 Can be viewed in source system Missing Attachment - attachment storage system not supported 3550620 Can be viewed in source system Missing Attachment - attachment storage system not supported 1516437 Can be viewed in source system Missing Attachment - attachment storage system not supported 0230222 Can be viewed in source system 05-11-2025 [...] All Problems Food insecurity / SNOMED CT 0399838634 / Possible Problem added automatically by Discern Expert based on clinical documentation Financial problem / SNOMED CT 367096714 / Possible Problem added automatically by Discern Expert based on clinical documentation Unable to afford medication / SNOMED CT 712734764267123 / Possible Problem added automatically by Discern Expert based on clinical documentation Hyperlipemia / SNOMED CT 15802398 / Confirmed Rectal bleed / SNOMED CT 985342022 / Confirmed Heartburn / SNOMED CT 00473178 / Confirmed Ulcerative colitis, universal / SNOMED CT 6444086975 / Confirmed Bladder stone / SNOMED CT 385561204 / Confirmed BPH with urinary obstruction / SNOMED CT 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 / Confirmed Incomplete bladder emptying / SNOMED CT 469118415 / Confirmed Gross hematuria / SNOMED CT 978309870 / Confirmed Kidney stones / SNOMED CT 926608981 / Confirmed Bladder mass / SNOMED CT 9984432726 / Confirmed Urethral stone / SNOMED CT 37489814 / Confirmed Prostate calculus / SNOMED CT 496744791 / Confirmed Continuous severe abdominal pain / SNOMED CT 87040041 / Confirmed Hematochezia / SNOMED CT 8695734136 / Confirmed Acute diarrhea / SNOMED CT 2688296601 / Confirmed [place] ulcerative colitis / SNOMED CT 5124669414 / Confirmed Adenomatous colon polyp / SNOMED CT 9126034727 / Confirmed History of colon polyps / SNOMED CT 6736448647 / Confirmed Elevated alkaline phosphatase level / SNOMED CT 3041155868 / Confirmed Anemia / SNOMED CT 841027168 / Confirmed Arthritis / SNOMED CT 2864514 / Confirmed Multiple renal cysts / SNOMED CT 362204925 / Confirmed Ureteral stone with hydronephrosis / SNOMED CT 2618312932 / Confirmed Screening PSA (prostate specific antigen) / SNOMED CT 386765957 / Confirmed Feeling of incomplete bladder emptying / SNOMED CT 4702844993 / Confirmed Pyuria / SNOMED CT 5202108 / Confirmed Histories Past Medical History: Resolved Extreme obesity ([id number]) : Resolved. Ulcerative colitis (880405849): Resolved. Family History: Brother Arthritis Father Stroke Mother Asthma High cholesterol Hypertension Heart disease Procedure history: Colonoscopy ([id number]) on 06/03/2024 at 59 Years. Esophagogastroduodenoscopy (115859612) on 06/03/2024 at 59 Years. Colonoscopy ([id number]) on 02/26/2024 at 58 Years. Colonoscopy ([id number]) on 03/23/2023 at 57 Years. Cystoscopy ([id number]) on 02/04/2021 at 55 Years. Colonoscopy (753242069). right hip replacement (545866887). replacement on both knees (204258832). Social History Social & Psychosocial Habits Alcohol 12/14/2024 Risk Assessment: Denies Alcohol Use 12/14/2024 Use: Never Comment: denies - 01/14/2023 08:52 - Tamiko Garcia I Exercise 12/14/2024 R (more content not included)... [facility] Comment on above: Result Comment: Elec tronically Signed By: Ricky RBOLERO, Luis Antonio Tiwari\.sania\Date and Time Signed: 05/11/25 [...] All Problems Acute diarrhea / SNOMED CT 8840351832 / Confirmed Adenomatous colon polyp / SNOMED CT 4584852252 / Confirmed Anemia / SNOMED CT 785740077 / Confirmed Arthritis / SNOMED CT 8175467 / Confirmed Bladder mass / SNOMED CT 7930318875 / Confirmed Bladder stone / SNOMED CT 114863614 / Confirmed BPH with urinary obstruction / SNOMED CT 6982506958 / Confirmed Continuous severe abdominal pain / SNOMED CT 25018786 / Confirmed Elevated alkaline phosphatase level / SNOMED CT 9797224588 / Confirmed Feeling of incomplete bladder emptying / SNOMED CT 3760546308 / Confirmed Financial problem / SNOMED CT 545484224 / Possible Problem added automatically by Discern Expert based on clinical documentation Food insecurity / SNOMED CT 7177948711 / Possible Problem added automatically by Discern Expert based on clinical documentation Gross hematuria / SNOMED CT 345404394 / Confirmed Heartburn / SNOMED CT 49650256 / Confirmed Hematochezia / SNOMED CT 1003968382 / Confirmed History of colon polyps / SNOMED CT 0828860145 / Confirmed Hyperlipemia / SNOMED CT 24596818 / Confirmed Incomplete bladder emptying / SNOMED CT 615596080 / Confirmed Kidney stones / SNOMED CT 875542045 / Confirmed Multiple renal cysts / SNOMED CT 980632905 / Confirmed Prostate calculus / SNOMED CT 013163180 / Confirmed Pyuria / SNOMED CT 7453980 / Confirmed Rectal bleed / SNOMED CT 061546976 / Confirmed Screening PSA (prostate specific antigen) / SNOMED CT 550156855 / Confirmed Ulcerative colitis, universal / SNOMED CT 5727799744 / Confirmed Unable to afford medication / SNOMED CT 791895081541520 / Possible Problem added automatically by Discern Expert based on clinical documentation [place] ulcerative colitis / SNOMED CT 4585891876 / Confirmed Ureteral stone with hydronephrosis / SNOMED CT 5551967926 / Confirmed Urethral stone / SNOMED CT 05266425 / Confirmed Resolved: Extreme obesity / SNOMED CT [id number] Resolved: Ulcerative colitis / SNOMED CT 229504751 Canceled: Ulcerative colitis / SNOMED CT 131839316 Histories Past Medical History: Resolved Extreme obesity ([id number]) : Resolved. Ulcerative colitis (917406855): Resolve (more content not included)... [facility] Comment on above: Result Comment: [...] TODAY, 05/03/25 XRAY (R) KNEE 06/16/23 IN [facility] XRAY (R) KNEE 02/26/21 IN [facility] [...] Use: Not At Risk (01/24/2020) Received from [facility] AUDIT-C Frequency of Alcohol Consumption: Never [...] requiring urgent evaluation. documented in this encounter [facility] 03-29-2025 History of Present illness Narrative [...] Use: Not At Risk (01/24/2020) Received from [facility] AUDIT-C Frequency of Alcohol Consumption: Never [...] requiring urgent evaluation. documented in this encounter [facility] 02-14-2025 Instructions Darrian Dubon MD - 02/14/2025 7:41 AM EDT -PLEASE NOTE THAT WE REVIEW ALL YOUR TEST RESULTS AT YOUR NEXT FOLLOW UP VISIT WITH YOU. IF ANY ABNORMAL LAB REQUIRES SOONER ATTENTION, WE WILL CONTACT YOU. -If you have signed up on MyChart, we will release your test results through [facility] [facility]. I wish you the best of health [...] track your nutrition and calcium intake on www.[facility] This provides macro and micronutrient intake and requirements. - You can track your calcium intake on [facility] or any other calcium tracker of your [...] youtube and copy and paste this link: https://youtu.be/[email or web address] This is done by a Physical Medicine and Rehab doctor who is a victorian literature professor in [facility]. She completed a PhD at the [employer]. I hope you find it helpful. Please take precautions and start gradual when starting a new exercise program. Another reference includes this one: -Dominique RM, Peg Desai J, Ne RL, Agustin SF, Judy EW. Exercise for the prevention of osteoporosis in postmenopausal women: an evidence-based guide to the optimal prescription. Thor J Speedometer Inspector. 2019 Jan-Feb;23(2):170-180. doi: 10.1016/j.bjpt.2018.11.011. Epub 2017Oct 07. PMID: 59849843; PMCID: CLR0516077. - Stress can lead to bone loss. [...] legumes, soybeans and other beans) - [place] (potatoes, avocados, almonds, peanuts) - Chromium (broccoli, [...] health? Ther Adv Musculoskelet Dis. 2010;3(6):293-300. doi: 10.1177/0102495C09177535. PMID: 02465598; PMCID: DEU3373487. -SUDHEER Carrillo., NYLA Dodson., GHAZAL Flores. et al. Soy isoflavone intake inhibits bone resorption and stimulates bone formation in menopausal women: meta-analysis of randomized controlled trials. Eur J Clin Nutr 62, 155-161 (2007). https://doi.org/10.1038/sj.ejcn.554004 8 -Clyde Rosa, Trisha Lara, Bar De Leon et al. Isoflavone intervention and its impact on bone mineral density in postmenopausal women: a systematic review and meta-analysis of randomized controlled trials. Osteoporos Int (2022). https://doi.org/10.1007/d10682-358-931 44-y -Jack Finch, Trisha Lara, Clyde Grant et al. Effects of isoflavone interventions on bone mineral density in postmenopausal women: a systematic review and meta-analysis of randomized controlled trials. Osteoporos Int 31, 3530-4922 (2020). https://doi.org/10.1007/p49699-526-093 76-z - Benefits of consuming soy in whole foods are listed in this article at the PCR website: https://www.pcrm.org/good-nutrition/nu trition-information/fdi-smp-ocgqin - Prunes have been reported to help [...] Am J Clin Nutr. 2021Aug 21;116(4):897-910. doi: 10.1093/ajcn/nsbp728. PMID: 75400048. -Benefit to bone density and inflammation: Hebert WYMAN, Perrin, Glory SOLARES, Sivakumar ALDANA, Trey CUBA. The Role of Prunes in Modulating Inflammatory Pathways to Improve Bone Health in Postmenopausal Women. Adv Nutr. 2021Aug 17;13(5):2698-7688. doi: 10.1093/advances/xcfs451. PMID: 69321696; PMCID: HBE0768906. - Information on Vitamin K2: more recently [...] with the exception of Natto (a traditional [place] food made from fermented soybeans) has [...] of these foods, please consult with your Content Engineer or Physician first. Review of Osteoporosis medications [...] femur. You can read more at these [facility] web links: https://my.[facility]/health/ treatments/31132-snopqrjjztjyain For Fosamax/alendronate: https://Eko.[facility].org/health/ drugs/34212-pzipwwfqhuf-tkhbuvs For Actonel/risedronate: https://Eko.[facility].org/health/ drugs/39362-qeaivmaaqqb-pgzt-zonisjdTb r Reclast/zoledronic acid: https://Eko.[facility]/health/ drugs/28922-rqzzpcwqao-ryys-elnndjhmq- knafxy-yxnrbyy-cmivfdenciuo -Subcutaneous Prolia: this is one injection every 6 months, given by the nurse in the office. This medication is given half-way, indefinitely. Prolia should not be discontinued without [...] looked into transition therapy. Recent study from [facility] Slim et al, 04/11/2020 (PMID: 57071222.The study is ongoing, clinicaltrials.gov; [id number]), reported one infusion of IV Reclast did [...] femur. You can read more at these [facility] web links: https://my.[facility].org/health/ drugs/03945-gbxychbii-yusizoldu Medications that build bone density and prevent [...] etc... You can read more at these [facility] web links: For Forteo/teriparatide: https://my.[facility].org/health/ drugs/83903-moqmvwmakqwa-etaspfktm For Tymlos/abaloparatide: https://my.[facility].org/health/ drugs/10767-cqwnczcuqpavh-atqqcwgut Medication that both prevents bone loss and [...] We may need a clearance from a Photographic Laboratory Supervisor prior to proceeding with this medication in patients who have a cardiovascular disease history. This is only prescribed for 1 year and then needs to be followed by anti-resorptive therapy, according to recommendations. You can read more at these [facility] web links: For Evenity/romosozumab: https://my.[facility].org/health/ drugs/02466-ndezrzpjaay-cjqcmwnlt Other less potent Osteoporosis medications, such as [...] available medications were provided: Link to the [place] [employer] website at: https://www.rheumatology.org/I-Am-A/Ernesto wyatt-Caregiver/Diseases-Conditions/Os teoporosis Link to the [facility] web link at: On Osteoporosis: https://my.[facility].org/health/ diseases/4443-osteoporosis On Osteopenia: https://my.[facility].org/health/ diseases/56742-owjkthslxr - Additional information on Bone Health and [...] Osteoporosis Foundation) http://www.osteo.org/osteolinks.asp National Institutes of Health: 5-527-704-BONE The Calcium Information Center: Non-Dairy, Plant based Milk, can contain in1 glass up to 450 mg of calcium (300 to 450 mg) Exampled include Oat Milk, Flax Milk, Corea Milk, Cashew Milk, Soy Milk, Peas Milk Examples of Food Sources of Calcium from NIH Food Milligrams (mg) per serving Percent DV* Soymilk, calcium-fortified, 8 ounces 299 30 Ruby juice, calcium-fortified, 6 ounces 261 26 Tofu, firm, made with calcium sulfate, cup* 253 25 Tofu, soft, made with calcium sulfate, cup* 138 14 Kqotm-gh-bbn cereal, calcium-fortified, 1 cup 100-1,000 10-100 Turnip greens, fresh, boiled, cup 99 10 Kale, raw, chopped, 1 cup 100 10 Kale, fresh, cooked, 1 cup 94 9 Nigerien cabbage, bok marin, raw, shredded, 1 cup 74 7 Bread, white, 1 slice 73 7 Tortilla, corn, eiwru-fq-vkin/marshall, one 6 diameter 46 5 Tortilla, flour, tbcca-fx-fqtg/marshall, one 6 diameter 32 3 Bread, whole-wheat, [...] daily with a meal; Certain patients require 7465-4270 international units daily and in patients deficient [...] bones. Studies show approximately 50% of [place] men and women are vitamin D deficient [...] of falling. Additional Information is available from: [facility] Osteoporosis Information: https://my.[facility].org/departm ents/orthopaedics-rheumatology/depts/o steoporosis-metabolic The Bone Health and Osteoporosis Foundation (formerly the National Osteoporosis Foundation) : https://www.bonehealthandosteoporosis. org International Osteoporosis Foundation: https://www.osteoporosis.foundation http://ods.od.nih.gov/factsheets/vitam ind.asp [place] [facility]: 1-008-255-BONE The Calcium Information [place]: I recommend following a healthy lifestyle. You [...] that features the Whole Plant Based diet, Kaleva over knives (see video online and visit website). Another movie that was recently released is: Eating You Alive (you can find it at Gritness) and The DigiZmart Changers movie Dr. Fauzia Ansari is a [facility] physician who has done research and published books, is an expert in Whole Plant based diet for prevention and reversal of heart disease. His website is [employer]. His research highlights the benefits of the Whole food plant based diet in reversing and preventing heart disease. Mrs. Cookie Ansari (his ) has a cookbook with many recipes on whole plant based food: The Prevent and Reverse Heart Disease cookbook. Cookie and Yamile Ansari have a cooking show on YouTube called: Plant-Based with Yamile Reeseluisnickie and Cookie Reeseluisinckie. You can also consider reading his son, Eze Ansari's book: The Engine 2 cookbook Eze is a retired photo finish photographer who has helped many people get healthier [...] multiple free videos and YouTube, for example: https://youtu.be/brkSxsqL3u1 , https://youtu.be/StFQTbyyb9g He has written multiple books, including Power Food for the Brain, The Cheese Trap, Dr. Rock Velazco's Program for Reversing Diabetes, Your Body in Balance You can also watch YouTube channel : The Doc & Emergency Detail Driver Dr. Anthony Carlson has shown the benefit of a starch based whole food plant based diet to his Rheumatoid Arthritis patients, as well as patient with diabetes II, hypertension, obesity, multiple sclerosis, heart disease, acne, and other, his website: www.debra.myinfoQ Dr. Yayo Allred is a renowned clinical cytogeneticist scientist, who has studied and researched the benefits of the Whole plant based diet. He has also researched the adverse effects of animal proteins on health. He presents many of his research findings in his book The [place] study. Dr. Gerber Becker has completed many research trials proving the reversal of diseases, such as heart disease and early prostate cancer, with healthy lifestyle and the Whole Plant based diet. Dr. Gerber Becker website is: www.[employer]armen[employer].myinfoQ His new book: Undo It, has evidence based information and guide to following this healthy lifestyle. Dr. Cody Dillon has dedicated a website and additional time to reviewing all food related articles and research and presents them in his power point presentation and on his website at: nutritionfacts.org which is all free. Dr. Dillon has multiple free videos and YouTube, for example https://Join The Wellness Team.be/aSgNkhgVtks and https://Join The Wellness Team.be/lXXXygDRyBU. He has written multiple books including: How Not To and How Not To Diet He is now working on his next book: How Not To Age Dr. Danitza Dash (from the [facility]), has articles on the following website: Health Catalyst.myinfoQ For additional ideas on recipes, you could find additional information on practical to follow recipes by reading or watching online and YouTube such as: Emergency Detail Driver AJ, Cooking With Plants, The Vegan Corner (recipes from an Mosotho Emergency Detail Driver), The Whole Foods Plant Based Cooking Show and visiting the provided websites for additional information on the whole plant based benefit and cooking recipes. You can also consider watching the vlogs of some of the plant based Athletes such as Fausto Ewing Derek on [employer]) Nutrition. You can find very good recipes [...] Dr. Jenny Degroot Lifestyle Medicine (is a Photographic Laboratory Supervisor and Lifestyle Medicine Physician) -Sometimes it helps to start with a simple diet of potatoes, that Dr. Carlson calls Yarelis Butler. You can learn more about that in his website: www.Surefire Social This is the website for AntoniettaIvanshayla Butler pdf : https://www.Surefire Social/wp-content /uploads//Georgiana-Carrie_Website_Pr int_Version-1.pdf You can also read more on Dr. Carlson's website - When you goal is to lose weight, it is important to listen to your hunger cues. Don't eat until you are stuffed. As soon as you feel you are no longer hungry, stop eating. There is a [place] Islander saying that says Tammie Vega, meaning eat until you are 80% full. I say avoid eating past 80% of your stomach fullness. This originated from the city of [facility], which is one of the sites reported in the Blue TLBX.me book, one of the highest cities in the world for having the most centenarians. Remember your stomach needs space and capacity for proper digestion of your food. Like a mexican food cook or a associate product manager, they have a limit for proper function, and should not be filled to the top. You can read more about that from the [facility] article Don t Eat Until You re Full ? Instead, Mind Your Tammie Vega Point , at https://health.[facility].org/don d-vap-igrvd-kocyw-qbuw-nkmfvec-mind-yo wa-ejkc-jvjes-salvador-point/ Most plants contain proteins and all essential [...] a nutrition tracker such as cronometer or Flashnotesnesspal and others. Dr. Maryan Holguin (a psychiatrist [...] you will need to consult with a capacity planning engineer to have further evaluation to exclude Celiac [...] - Gentle Yoga Anyone Can Do Anywhere www.[employer].myinfoQ/yoga Also on youtube: yoga with Karlie For women, especially after menopause, strength training is important. You can read more on that from Clare Morley, PhD at her website https://www.OwnLocal and YouTube videos. If you are a beginner, it is best to start with a physical therapist or household personal assistant. There are also several Aps that offer virtual personal training 3- Good Sleep (poor sleep impacts everything, recommended sleep is 7 to 8 hrs. a night). Certain people may need more sleep, depending on their age and other conditions. Meditation and relaxation techniques have shown to help with improving sleep. Try to be consistent with your sleep. You can find more at the [facility] Website on : https://Eko.[facility].org/Legendary Picturess/wellness/store/go-well#sleep-tab 4- Stress management, be happy, laugh often [...] Calm Insight Timer Meditation Stress Free Now ([facility]). You can find more resources at the [facility] website at : https://Eko.[facility].org/departWaste2Tricitys/wellness/store/go-well#stress-iron e-tab There are many free youtube videos on guided meditation as well For Breathing techniques: You can watch John Carlisle and learn the breathing technique and its benefits by watching the following YouTube: https://youtu.be/9Ab2E-JPl87?si=-Xtdfr 4UpsJOUbDU. Learning about your awareness/spiritual being, is [...] work with a psychotherapist or behavioral health basketball coach. When having a psychiatric condition, [...] or a higher dose. Raw: Garlic, Cilantro, [place] nuts, Pumpkin seeds, Cash seeds and Flax seed powder have been reported to help with certain metal detoxification such as mercury. [place]-3 plant based rich foods are good anti-inflammatory [...] the Whole Plant Based Diet, by watching Kaleva over Ruck.us movie and then review website. There are many other resources and educational information on the Whole plant based diet on the Internet and documentaries. There are other resources for wellness that you can also benefit from, such as the [facility] Wellness website, [facility] and includes Plant based and Mediterranean diet, yoga and meditation. Please avoid all dairy products. You could use non-dairy milk such as Flax milk, Cashew milk, Corea milk, Rice milk, Oat milk or Hemp [...] below, just add the ingredients to your associate product manager and blend: - Probably the healthiest smoothie is one that contains mostly green leafy vegetables (especially containing kale), some berries, flax seed and water. This might not turn down worker to be sweet. You can add one or two pitted dates or a frozen banana for natural sweetness. Examples of healthy green smoothies, pack your associate product manager (at least half way to 01/17) with a mix of green leafy veggies, then top your associate product manager with fruits (such as banana or frozen raul or pineapple, peaches, apricots, apples, grapes), a tablespoon of flax or david seeds, then add water or unsweetened coconut water and blend until smooth. You can also add turmeric in this recipe. Do not only use spinach as they tend to be high in oxalates and can be risk for kidney stones. The same with monegasque chards and beet leaves. If you don't [...] of your health and wellbeing. At the [facility], we work as a team for your care, along with Nurse Practitioners, Physician Assistants, Nurses and Medical Assistants. It is a privilege and honor to serve you. Thank you for choosing [facility] for your healthcare. Sincerely, Darrian Dubon [...] usual activities immediately. documented in this encounter [facility] 02-14-2025 History of Present illness Narrative Images from the original note were not included. FOLLOW UP VISIT Patient's Name: [place] [address] PCP: Jose L Lackey MD [address] [facility] [place] [id number] Consult Requested by: Jose L Lackey MD [address] [facility] [id number] Other physicians: Route Service Representative prev. Nel Lebron MD (his prev. capacity planning engineer left- Ronald Brown MD) ; Now following [...] BRBPR and denies melena. He follows with Route Service Representative for his UC. States has scopes this summer by his capacity planning engineer. He is following with Orthopedics for his osteoarthroses and non-inflammatory joint pains. He has a chronic rotator cuff tear and extensive bilateral glenohumeral degenerative disease. His s/p b/l TKR and rt THR. Hissed rate was elevated at 79 04/2024 at time of his pneumonia. He continues on sulfasalazine and Entyvio by his capacity planning engineer. He does not describe RA related symptoms No jt pains or swelling outside of the LLE from TKR Denies rheum nodules No stiffness He is on sulfasalazine per capacity planning engineer for his UC and this has been controlling his RA He is pleased with his treatment regimen He also states that his IBD is well controlled, states told is in remission, on Entyvio Doing exercise and working with household personal assistant at the gym and will be going [...] in IBD and is following with local capacity planning engineer for that. Has been on Humira since Sep 2020 (started with 80 mg loading dose and since has been on 40 mg every 2 wks) He was pleased with Enbrel response to his RA and later was switched to Humira, reports has similar benefit and is pleased with response. His capacity planning engineer switched him to Humira for optimal mgt of IBD and he feels this has helped his IBD better. Reports still gets 8 BM's a day, does not have BM at night, does not have to wake up from sleep. Has been following with his capacity planning engineer for his UC Had colonoscopy 11/22/2021 with reported marked improvement in asc/transv/desc colon and severe active in rectum, histopath with active colitis with erosions. States Dr. Lebron has started him on rectal enemas. Recent colonoscopy with reported active colitis. He tells me that he continues to have multiple BM's; His capacity planning engineer prescribed pred. course, completed recently. No jt [...] us, he is on Humira per his Route Service Representative He is off Enbrel, was switched to Humira by his capacity planning engineer. (previously was on Enbrel 25 mg twice a wk and has been in remission since on Enbrel and very pleased with his treatment regimen) He is on Humira 40 mg every 2 wks by his Route Service Representative He is on sulfasalazine, Humira and mesalamine enemas per his capacity planning engineer I have reviewed benefits of a whole food plant based diet He consumes dairy, cheese, sausage, hamburger. I have advised him on avoiding meats and dairy and reviewed reports and patient experience with flare of IBD and RA, as well as gastrointestinal dysbiosis. I advised him on a whole foods plant based diet. He has a associate product manager ([employer]) and interested in making healthy smoothies and [...] in this patient with known rheumatoid arthritis. Agronomy Location Manager: CODY Transcribe Date/Time: Feb 20 2021 9:52A [...] felt rt shoulder needed to be stretched. [facility] was working in yard, denies injury. Denies jt pains, outside of the left tip of ankle, states feels the top of the left ankle feels like it's jammed up , feels needs to pull bones apart. [facility] is the site where has fallen arch. Has seen Change Control Specialist in the remote past for the fallen arch, not recently. Feels gets stiff when not moving as much. Denies any injury or trauma. Denies any pain to me today States his capacity planning engineer has prescribed prednisone course due to IBD flare States after scope was told is flared. He is on sulfasalazine and budesonide and his capacity planning engineer and since has switched him from Enbrel [...] Alk phos isoenz: liver fraction; followed by capacity planning engineer He follows with his capacity planning engineer for hi elev alk phos and AST and for bld with stools, Dr Brown: and states he started him on iron supplement States Dr. Brown prescribed metronidazole, for reported diarrhea. [facility] felt it made a difference. [facility] he gave him enemas and told that is for his ulcerative colitis and prescr. sulfasalazine. In 2018, has also followed with his capacity planning engineer for blood with stools, and had flex sig and told he was inflamed from his Ulcerative colitis. [facility] had colonosc and EGD in 2018 and was told were good. Told his bld in stools from his UC and patient states notices also mucus when wipes. [facility] had increased his sulfasalazine dose. [facility] also notices that dairy and cheese caused [...] systems reviewed and are negative DXA Model: ClickGanic W [id number] SITE SCANNED: Lumbar spine and left hip [...] were all normal. He follows with his capacity planning engineer for his ulcerative colitis and is on sulfasalazine. He was told by his capacity planning engineer to avoid sun exposure due to this med, had skin itching last summer. He had evaluation for elevated AST and alk phos. Alk phos has improved and AST has been borderline elevated. I have advised him to f/u with his capacity planning engineer for his elevated alk phos (liver fraction) States his capacity planning engineer did an US of his liver twice and was told was normal. He denies any alcohol consumption or acetaminophens. His isoenzyme indicated predom. of liver origin. The patient reports that his capacity planning engineer completed evaluation and told his liver is fine. His liver US was unremarkable . His anemia has resolved since his UC has been controlled. States saw his capacity planning engineer, Dr. Lebron, recently and states told him [...] and denies hematuria or dysuria. DXA Model: ClickGanic W [id number] SITE SCANNED: Lumbar spine and left hip [...] states not bad . has seen a yardage tufting machine operator in the past, in [place], Dr. Whitfield. [...] 500mg q 6hrs. Reports benefit and his capacity planning engineer took him off the iron supplement as his iron was good. [facility] has advised him to avoid all nsaids and recently had discontinued his Celebrex. [facility] has another apt and scheduled for scope next wk Tues. RHEUM. ROS: Joint pain: as above; none currently Joint swelling: as above; none currently Am stiffness: as above; none currently Low back pain: no Dactylitis: no H/o precedent/frequent infection(s): as above Enthesopathy/Huntington's/heel/plantar tenderness: no Skin thickening, psoriasis, photosensitivity, purpura: no Nail changes: no Alpecia, patchy: no; has MPB Eye inflammation: no SICCA: no Oral/nasal/genital ulcers: no GI problems-diarrhea/bleeding/IBD/Gluten intolerence/Dysphagia: as above Raynaud's phenomenon/digital ulcers: no Organ inv-Serositis: no Lung disease/ILD: no Myopathy/proximal muscle weakness: no Abnormal Urine or urethritis: no Renal disease: no ASSEMBLY LINE INSPECTOR/PNS disease: no and denies MS HEME-Cytopenias/LAD/Clots: iron [...] Marital Status: Single denies children 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 Lackey Smoking: quit [...] Abs Lymph 1.00 - 4.00 k/uL 3.02 [place]% 9.7 Abs [place] 0.00 - 0.86 k/uL 0.79 Eosin% 0.0 [...] Negative Negative Ketones, Urine Negative Negative Specific [place], Ur 1.005 - 1.030 1.008 Hemoglobin/Blood,Ur Negative 3+ (A) pH, Urine 4.5 - 8.0 6.0 Protein, Urine Negative mg/dL Negative Urobilinogen Normal Normal Nitrites Negative Negative Leukest Negative Negative Comments SEE COMMENT Urine Adan Comment SEE COMMENT WBC, Urine 0 - 5 /HPF 0-5 RBC, Urine 0 - 3 /HPF >25 (A) Sm Antibody <1.0 AI <0.2 ALLERGIST/IMMUNOLOGIST PHYSICIAN Antibody <1.0 AI 1.2 (H) SSA Antibody <1.0 AI <0.2 SSB Antibody <1.0 AI <0.2 Centromere Ab <1.0 AI <0.2 Scleroderma Ab, IgG <1.0 AI <0.2 Milagro 1 Antibody <1.0 AI <0.2 Ribosomal ALLERGIST/IMMUNOLOGIST PHYSICIAN <1.0 AI <0.2 Chromatin Antibody <1.0 AI [...] <12 Sm Antibody <1.0 AI <0.2 Ribosomal ALLERGIST/IMMUNOLOGIST PHYSICIAN <1.0 AI <0.2 Chromatin Antibody <1.0 AI <0.2 SSA Antibody <1.0 AI <0.2 SSB Antibody <1.0 AI <0.2 ALLERGIST/IMMUNOLOGIST PHYSICIAN Antibody <1.0 AI 1.2 Scleroderma Ab, IgG [...] FINDINGS CONSISTENT WITH CHRONIC SEVERE RHEUMATOID ARTHRITIS. Agronomy Location Manager: [facility] Transcribe Date/Time: Aug 29 2015 12:56P ... Last XR Ankle - Impression Only XR ANKLE GENERAL 3V AP/LAT/OBL LT Exam End: 02/20/2021 8:42 AM (Final result) Impression: IMPRESSION: Arthritic changes demonstrating interval progression in this patient with known rheumatoid arthritis. Agronomy Location Manager: KETTYB Transcribe Date/Time: Feb 20 2021 9:52A [...] developed and its performance characteristics determined by [facility] [place] ([facility]). It has not been cleared [...] 147 53 - 334 mg/dL Final MPA [place], Serum Date Value Ref Range Status 08/19/2018 1,020 534 - 1,267 mg/dL Final MPA [place], Serum Date Value Ref Range Status 08/19/2018 551 253 - 653 mg/dL Final MPA [place]/Lambda Ratio Date Value Ref Range Status 08/19/2018 [...] , Gender: Male SCANNER INFORMATION: DXA Model: ClickGanic W [id number] SITE SCANNED: Lumbar spine and left hip [...] machine for accurate comparison. FOR MORE INFORMATION: [facility] Metabolic Bone Disease: www.ccf.org/arthritis/osteo National Osteoporosis Foundation: www.nof.org International Society of Clinical Densitometry www.iscd.org Agronomy Location Manager: [id number] Transcribe Date/Time: Sep 23 2022 10:28A Dictated [...] in patient's severe chronic Rheumatoid Arthritis. His capacity planning engineer has switched him to Humira as he [...] to receive intermittent steroid therapy from his capacity planning engineer. Pharmacologic therapy is still indicated and recommended, [...] Also receives labs per Primary care physician/ Route Service Representative Recheck DXA scheduled 05/2025 -The patient's capacity planning engineer follows him for his UC, anemia and liver tests. He is on Entyvio and sulfasalazine per his Route Service Representative RA med: none from rheum, doing well on sulfasalazine, prescribed by GI (He was prev. on Enbrel 25 mg sq twice a week, or may switch to Humira if his capacity planning engineer switched him to Humira TNF inhibitor therapy, [...] on sulfasalazine for his IBD per his capacity planning engineer OP med: Received Reclast infusion, 5 mg IV on 05/09/2024 well tolerated Further infusions will be determined based on recheck DXA and CTX, or if on systemic steroids. As previously discussed, his OP med of choice is IV Reclast Oral bisphosphonate contraindicated due to his IBD and gastrointestinal disease. Osteoporosis was likely due to previous half-way steroid therapy by other physicians over the [...] and subtroch. fracture of femur with termite control representative use of bisphosphonates/alendronate and anti-resorptive agents, there [...] wished to proceed. Previous orders -CONSULT TO LOOM CHANGER -CONSULT TO PODIATRY Provided referral to OT for assistive devices, exercises to preserve left function Referral to design manager for foot/ankle deformities and callus care, inserts/braces/orthotics, [...] spent included preparing to see the patient, [id number] patient care, completing clinical documentation, obtaining and/or [...] appropriate immunization recommended. -Continued follow up with capacity planning engineer for IBD management and monitoring for liver [...] Darrian Fischer MD Jose L Lackey MD [address] [place] [address] Medical Decision Making: Problems: Moderate: 2+ stable chronic illnesses Data: Unique source(s) for external note(s) reviewed: 3+ Unique test result(s) reviewed: 3+ Medical Decision Making Level: 4 - Moderate documented in this encounter [facility] 02-14-2025 Note HNO ID: [id number] Author: DARRIAN DUBON MD Service: ? Author Type: Physician Type: Progress Notes Filed: 02/20/2025 17:28 Note Text: FOLLOW UP VISIT Patient's Name: Jam Torres [place] [id number] PCP: Jose L Lackey MD [address] [place] [phone] Consult Requested by: Jose L Lackey MD [address] [place] [id number] Other physicians: Route Service Representative prev. Nel Lebron MD (his prev. capacity planning engineer left- Ronald Brown MD) ; Now following with Dr. Luis Antonio García Accompanied by: self Interim history: Mr. Toscano is a very nice 59 y.o. gentleman here for f/u visit for Rheumatoid Arthritis and Osteoporosis He follows with IBD, UC, on Entyvio and sulfasalazine; States had liver US and fibroscan, told no fatty liver He is no longer on anti-TNF therapy. [facility] his PCP is treating his anemia with iron, was on supplement and switched to IV. He is not aware of bleeding, denies BRBPR and denies melena. He follows with Route Service Representative for his UC. [facility] has scopes this summer by his capacity planning engineer. He is following with Orthopedics for his osteoarthroses and non-inflammatory joint pains. He has a chronic rotator cuff tear and extensive bilateral glenohumeral degenerative disease. His s/p b/l TKR and rt THR. Hissed rate was elevated at 79 04/2024 at time of his pneumonia. He continues on sulfasalazine and Entyvio by his capacity planning engineer. He does not describe RA related symptoms No jt pains or swelling outside of the LLE from TKR Denies rheum nodules No stiffness He is on sulfasalazine per capacity planning engineer for his UC and this has been controlling his RA He is pleased with his treatment regimen He also states that his IBD is well controlled, states told is in remission, on Entyvio Doing exercise and working with household personal assistant at the gym and will be going [...] in IBD and is following with local capacity planning engineer for that. Has been on Humira since Sep 2020 (started with 80 mg loading dose and since has been on 40 mg every 2 wks) He was pleased with Enbrel response to his RA and later was switched to Humira, reports has similar benefit and is pleased with response. His capacity planning engineer switched him to Humira for optimal mgt of IBD and he feels this has helped his IBD better. Reports still gets 8 BM's a day, does not have BM at night, does not have to wake up from sleep. Has been following with his capacity planning engineer for his UC Had colonoscopy 11/22/2021 with reported marked improvement in asc/transv/desc colon and severe active in rectum, histopath with active colitis with erosions. States Dr. Lebron has started him on rectal enemas. Recent colonoscopy with reported active colitis. He tells me that he continues to have multiple BM's; His capacity planning engineer prescribed pred. course, completed recently. No jt [...] us, he is on Humira per his Route Service Representative He is off Enbrel, was switched to Humira by his capacity planning engineer. (previously was on Enbrel 25 mg twice a wk and has been in remission since on Enbrel and very pleased with his treatment regimen) He is on Humira 40 mg every 2 wks by his Route Service Representative He is on sulfasalazine, Humira and mesalamine enemas per his capacity planning engineer I have reviewed benefits of a whole food plant based diet He consumes dairy, cheese, sausage, hamburger. I have advised him on avoiding meats and dairy and reviewed reports and patient experience with flare of IBD and RA, as well as gastrointestinal dysbiosis. I advised him on a whole foods plant based diet. He has a associate product manager ([employer]) and interested in making healthy smoothies and we have discussed at last visit. He has stopped drinking monster energy drink with water and I advised him to a (more content not included)... [facility] 11-23-2024 Telephone encounter Note Thank you for trying. Since has seen his PCP, he would not need sooner apt with me. thank you kindly, fa [facility] 11-23-2024 Miscellaneous Notes Thank you for [...] Please offer appt with Dr Dubon or MEDICAL TECH, if patient still interested. Thank you for [...] apt with me or any rheum ANGÉLICA (MEDICAL TECH or PA) who has opening soon. thank you kindly, fa -Pt returning call to office. Pt identified by name and date. Pt given message as detailed below and verbalized understanding. -States the only trauma/injury he has experienced recently is that he stubbed his RT middle toe 3 days ago. 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 Denies any change [...] feet/fingers/shoulders Please advise documented in this encounter [facility] 11-23-2024 Telephone encounter Note Patient returned call and can not make it today, seen his PCP for the issue.please advise. [facility] 11-23-2024 Telephone encounter Note Hi Dr. [...] Jordyn KELLER November 23, 2024 9:03 AM [facility] 11-23-2024 Telephone encounter Note Please offer appt with Dr Dubon or MEDICAL TECH, if patient still interested. [facility] 11-22-2024 Telephone encounter Note Thank you [...] apt with me or any rheum ANGÉLICA (MEDICAL TECH or PA) who has opening soon. thank you kindly, fa [facility] 11-22-2024 Note Urology Office/Clini c Note Chief Complaint referral HPI Staff 59yr old male referred by Dr. Lackey for kidney stones w/ KUB. KUB done at [facility] on 11/14/24. Pt has seen [...] Urology [address], [place] [address]- Additional Instructions: f/u pending CT Patient Education [...] Gross hematuria Hea (more content not included)... [facility] Comment on above: Result Comment: [...] toe 3 days ago. 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 Denies any change [...] Pt then apologized and ended the call. [facility] 11-21-2024 Note Patient Education Nephrology Dietary [...] ? 8 oz (237 mL) of milk, stdbxgm-sdrdqtekkuui-czqbu milk, and calcium-fortifiedfruit juice. Calcium-fortified means that [...] Spinach (cooked), rhubarb, beets, sweet potatoes, and Mauritian chard. ? Peanuts. ? Potato chips, yi fries, and baked potatoes with skin on. ? Nuts and nut products. ? Chocolate. ??? If you regularly take a diuretic medicine, make sure to eat at least 1 or 2 servings of fruits or vegetables that are high in potassium each day. These include: ? Avocado. ? Banana. ? Ruby, prune, carrot, or tomato juice. ? Baked [...] fish oil, or vitamin B6. ??? Take hssz-qzb-njmsowm and prescription medicines only as told by your health (more content not included)... [facility] 11-21-2024 Telephone encounter Note Left message requesting return call. [facility] 11-21-2024 Telephone encounter Note Thank you [...] had before ? thank you kindly, fa [facility] 11-21-2024 Telephone encounter Note Images from [...] not completely. Pain: Bilateral feet/fingers/shoulders Please advise [facility] 10-05-2024 Instructions Darrian Dubon MD - 10/05/2024 7:56 AM EST -PLEASE NOTE THAT WE REVIEW ALL YOUR TEST RESULTS AT YOUR NEXT FOLLOW UP VISIT WITH YOU. IF ANY ABNORMAL LAB REQUIRES SOONER ATTENTION, WE WILL CONTACT YOU. -If you have signed up on Fluidnethart, we will release your test results through Loop[employer] Via. I wish you the best of health [...] track your nutrition and calcium intake on www.CrossMedia.myinfoQ This provides macro and micronutrient intake and requirements. - You can track your calcium intake on CrossMedia.myinfoQ or any other calcium tracker of your [...] youtube and copy and paste this link: https://youKaonetics Technologiesu.be/[email or web address] This is done by a Physical Medicine and Rehab doctor who is a victorian literature professor in [facility]. She completed a PhD at the [facility]. I hope you find it [...] legumes, soybeans and other beans) - [place] (potatoes, avocados, almonds, peanuts) - Chromium (broccoli, [...] Eur J Clin Nutr 62, 155-161 (2007). https://doi.org/10.1038/sj.ejcn.008361 8 -Clyde Rosa, Trisha Lara, Bar De Leon et al. Isoflavone intervention and its impact on bone mineral density in postmenopausal women: a systematic review and meta-analysis of randomized controlled trials. Osteoporos Int (2022). https://doi.org/10.1007/m49447-329-850 44-y -Jack Finch, Trisha Lara, Andrez Grant. et al. Effects of isoflavone interventions on bone mineral density in postmenopausal women: a systematic review and meta-analysis of randomized controlled trials. Osteoporos Int 31, 6742-2028 (2020). https://doi.org/10.1007/d58486-343-794 76-z - Benefits of consuming soy in whole foods are listed in this article at the PCR website: https://www.pcr.org/good-nutrition/nu trition-information/glt-dpy-uvyyjz - Prunes have been reported to help [...] Am J Clin Nutr. 2021 6;116(4):897-910. doi: 10.1093/ajcn/chbu053. PMID: 12676839. -Benefit to bone density and inflammation: Hebert WYMAN, Perrin, Glory SOLARES, Sivakumar ALDANA, Trey CUBA. The Role of Prunes in Modulating Inflammatory Pathways to Improve Bone Health in Postmenopausal Women. Adv Nutr. 2021 2;13(5):9645-1087. doi: 10.1093/advances/cyee535. PMID: 31374303; PMCID: RSY1027973. - Information on Vitamin K2: more recently [...] with the exception of Natto (a traditional [place] Islander food made from fermented soybeans) has [...] of these foods, please consult with your Content Engineer or Physician first. Review of Osteoporosis medications [...] in the office. This medication is given half-way, indefinitely. Prolia should not be discontinued without [...] looked into transition therapy. Recent study from [facility] Slim et al, 04/11/2020 (PMID: 53325773.The study is ongoing, clinicaltrials.gov; [id number]), reported one infusion of IV Reclast did [...] We may need a clearance from a Photographic Laboratory Supervisor prior to proceeding with this medication in [...] and the different available medications at the [place] [employer] website at: https://www.rheumatology.org/I-Am-A/Ernesto wyatt-Caregiver/Diseases-Conditions/Os [...] Osteoporosis Foundation) http://www.osteo.org/osteolinks.asp National Institutes of Health: 1-176-648-BONE The Calcium Information Center: Non-Dairy, Plant based Milk, can contain in1 glass up to 450 mg of calcium (300 to 450 mg) Exampled include Oat Milk, Flax Milk, Corea Milk, Cashew Milk, Soy Milk, Peas Milk Examples of Food Sources of Calcium from NIH Food Milligrams (mg) per serving Percent DV* Soymilk, calcium-fortified, 8 ounces 299 30 Ruby juice, calcium-fortified, 6 ounces 261 26 Tofu, firm, made with calcium sulfate, cup* 253 25 Tofu, soft, made with calcium sulfate, cup* 138 14 Fuyfo-pk-shj cereal, calcium-fortified, 1 cup 100-1,000 10-100 Turnip greens, fresh, boiled, cup 99 10 Kale, raw, chopped, 1 cup 100 10 Kale, fresh, cooked, 1 cup 94 9 Nigerien cabbage, bok marin, raw, shredded, 1 cup 74 7 Bread, white, 1 slice 73 7 Tortilla, corn, enoxp-ke-ujxk/marshall, one 6 diameter 46 5 Tortilla, flour, dnumy-rf-dwax/marshall, one 6 diameter 32 3 Bread, whole-wheat, [...] daily with a meal; Certain patients require 2545-0884 international units daily and in patients deficient [...] bones. Studies show approximately 50% of [place] men and women are vitamin D deficient [...] of falling. Additional Information is available from: [facility] Osteoporosis Information: https://my.[facility].org/departm ents/orthopaedics-rheumatology/depts/o steoporosis-metabolic The Bone Health and Osteoporosis Foundation (formerly the National Osteoporosis Foundation) : https://www.bonehealthandosteoporosis. org International Osteoporosis Foundation: https://www.osteoporosis.foundation http://ods.od.nih.gov/factsheets/vitam ind.asp National Institutes of Health: 0-081-442-BONE The Calcium Information [place]: I recommend following a healthy lifestyle. You [...] track your nutrition and calcium intake on www.CrossMedia.myinfoQ This provides macro and micronutrient intake and [...] that features the Whole Plant Based diet, Kaleva over knives (see video online and visit website). Another movie that was recently released is: Eating You Alive (you can find it at Gritness) and The [employer] ChangeRising Tide [employer] movie Dr. Fauzia Ansari is a [facility] physician who has done research and published books, is an expert in Whole Plant based diet for prevention and reversal of heart disease. His website is TripleLift. 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 Rock Velazco's Program for Reversing Diabetes, Your Body in Balance You can also watch YouTube channel : The Doc & Emergency Detail Driver Dr. Anthony Carlson has shown the benefit of a starch based whole food plant based diet to his Rheumatoid Arthritis patients, as well as patient with diabetes II, hypertension, obesity, multiple sclerosis, heart disease, acne, and other, his website: www.debra.myinfoQ Dr. Yayo Allred is a renowned clinical cytogeneticist scientist, who has studied and researched the benefits of the Whole plant based diet. He has also researched the adverse effects of animal proteins on health. He presents many of his research findings in his book The [place] study. Dr. Gerber Becker has completed many research trials proving the reversal of diseases, such as heart disease and early prostate cancer, with healthy lifestyle and the Whole Plant based diet. Dr. Gerber Becker website is: www.carmenEnvironmental Support Solutions.myinfoQ His new book: Undo It, has evidence based information and guide to following this healthy lifestyle. Dr. Cody Dillon has dedicated a website and additional time to reviewing all food related articles and research and presents them in his power point presentation and on his website at: nutritionfacts.org which is all free. Dr. Dillon has multiple free videos and YouTube, for example https://youKaonetics Technologiesu.be/aSgNkhgVtks and https://youhurleypalmerflatt.be/lXXXygDRyBU. He has written multiple books including: How Not To and How Not To Diet He is now working on his next book: How Not To Age Dr. Danitza Dash (from the [facility]), has articles on the following website: Health Catalyst.myinfoQ For additional ideas on recipes, you could find additional information on practical to follow recipes by reading or watching online and YouTube such as: Chef BELLE, Cooking With Plants, The Vegan Corner (recipes from an [place] Emergency Detail Driver), The Whole Foods Plant Based Cooking Show and visiting the provided websites for additional information on the whole plant based benefit and cooking recipes. You can also consider watching the vlogs of some of the plant based Athletes such as Fausto Ewing Derek on [employer] ([place]) Nutrition. You can find very good recipes [...] Dr. Jenny Degroot Lifestyle Medicine (is a Photographic Laboratory Supervisor and Lifestyle Medicine Physician) -Sometimes it helps to start with a simple diet of potatoes, that Dr. Carlson calls Patricias FreeWheel. You can learn more about that in his website: www.Surefire Social This is the website for Patricias Mini pdf : https://www.ReconRobotics.myinfoQ/wp-content /uploads//Georgiana-Mini_Website_Pr int_Version-1.pdf You can also read more on Dr. Carlson's website - When you goal is to lose weight, it is important to listen to your hunger cues. Don't eat until you are stuffed. As soon as you feel you are no longer hungry, stop eating. There is a [place] Island[place] saying that says Tammie Vega, meaning eat until you are 80% full. I say avoid eating past 80% of your stomach fullness. This originated from the city of [facility], which is one of the sites reported in the Blue TLBX.me book, one of the highest cities in the world for having the most centenarians. Remember your stomach needs space and capacity for proper digestion of your food. Like a mexican food cook or a associate product manager, they have a limit for proper function, and should not be filled to the top. You can read more about that from the [facility] article Don t Eat Until You re Full ? Instead, Mind Your Tammie [place] , at https://health.[facility].org/don x-wvr-qjsnw-fdtrk-lgdt-tqzfilt-mind-yo rr-wlav-ooakf-salvador-annie/ Most plants contain proteins and all essential [...] you will need to consult with a capacity planning engineer to have further evaluation to exclude Celiac [...] - Gentle Yoga Anyone Can Do Anywhere www.eMerge Health Solutions.myinfoQ/yoga Also on youtube: yoga with Karlie For women, especially after menopause, strength training is important. You can read more on that from Clare Morley, PhD at her website https://www.Bountysource.myinfoQ and YouTube videos. If you are a beginner, it is best to start with a physical therapist or household personal assistant. There are also several Aps that offer virtual personal training 3- Good Sleep (poor sleep impacts everything, recommended sleep is 7 to 8 hrs. a night). Certain people may need more sleep, depending on their age and other conditions. Meditation and relaxation techniques have shown to help with improving sleep. Try to be consistent with your sleep. You can find more at the [facility] Website on : https://my.[facility].org/departm ents/wellness/store/go-well#sleep-tab 4- Stress management, be happy, [...] Calm Insight Timer Meditation Stress Free Now ([facility]). You can find more resources at the [facility] website at : https://my.[facility].org/departm ents/wellness/store/go-well#stress-iron e-tab There are many free youtube videos on guided meditation as well For Breathing techniques: You can watch John Maylin and learn the breathing technique and its benefits by watching the following YouTube: https://youKaonetics Technologiesu.be/5Ok4Y-IQa12?si=-Xtdfr 4UpsJOUbDU. Learning about your awareness/spiritual being, is [...] work with a psychotherapist or behavioral health basketball coach. When having a psychiatric condition, [...] or a higher dose. Raw: Garlic, Cilantro, [place] nuts, Pumpkin seeds, Cash seeds and Flax seed powder have been reported to help with certain metal detoxification such as mercury. [place]-3 plant based rich foods are good anti-inflammatory [...] the Whole Plant Based Diet, by watching Kaleva over Ruck.us movie and then review website. There are many other resources and educational information on the Whole plant based diet on the Internet and documentaries. There are other resources for wellness that you can also benefit from, such as the [facility] Wellness website, [facility] and includes Plant based and Mediterranean diet, yoga and meditation. Please avoid all dairy products. You could use non-dairy milk such as Flax milk, Cashew milk, Corea milk, Rice milk, Oat milk or Hemp [...] below, just add the ingredients to your associate product manager and blend: - Probably the healthiest smoothie is one that contains mostly green leafy vegetables (especially containing kale), some berries, flax seed and water. This might not turn down worker to be sweet. You can add one or two pitted dates or a frozen banana for natural sweetness. Examples of healthy green smoothies, pack your associate product manager (at least half way to 3/4) with a mix of green leafy veggies, then top your associate product manager with fruits (such as banana or frozen raul or pineapple, peaches, apricots, apples, grapes), a tablespoon of flax or david seeds, then add water or unsweetened coconut water and blend until smooth. You can also add turmeric in this recipe. Do not only use spinach as they tend to be high in oxalates and can be risk for kidney stones. The same with monegasque chards and beet leaves. If you don't [...] of your health and wellbeing. At the [facility], we work as a team for your care, along with Nurse Practitioners, Physician Assistants, Nurses and Medical Assistants. It is a privilege and honor to serve you. Thank you for choosing The [facility] for your healthcare. Sincerely, Darrian Dubon [...] usual activities immediately. documented in this encounter [facility] 10-05-2024 Note HNO ID: [id number] Author: DARRIAN DUBON MD Service: ? Author Type: Physician Type: Progress Notes Filed: 10/16/2024 19:47 Note Text: FOLLOW UP VISIT Patient's Name: Jam Erwin [facility] [id number] PCP: Jose L Lackey MD [address] [place] [phone] Consult Requested by: Jose L Lackey MD [address] [place] [phone] Other physicians: Route Service Representative prev. Nel Lebron MD (his prev. capacity planning engineer left- Ronald Brown MD) ; Now following [...] No stiffness He is on sulfasalazine per capacity planning engineer for his UC and this has been controlling his RA He is pleased with his treatment regimen He also states that his IBD is well controlled, states told is in remission, on Entyvio Doing exercise and working with household personal assistant at the gym and will be going [...] in IBD and is following with local capacity planning engineer for that. Has been on Humira since Sep 2020 (started with 80 mg loading dose and since has been on 40 mg every 2 wks) He was pleased with Enbrel response to his RA and later was switched to Humira, reports has similar benefit and is pleased with response. His capacity planning engineer switched him to Humira for optimal mgt of IBD and he feels this has helped his IBD better. Reports still gets 8 BM's a day, does not have BM at night, does not have to wake up from sleep. Has been following with his capacity planning engineer for his UC Had colonoscopy 11/22/2021 with reported marked improvement in asc/transv/desc colon and severe active in rectum, histopath with active colitis with erosions. States Dr. Lebron has started him on rectal enemas. Recent colonoscopy with reported active colitis. He tells me that he continues to have multiple BM's; His capacity planning engineer prescribed pred. course, completed recently. No jt [...] us, he is on Humira per his Route Service Representative He is off Enbrel, was switched to Humira by his capacity planning engineer. (previously was on Enbrel 25 mg twice a wk and has been in remission since on Enbrel and very pleased with his treatment regimen) He is on Humira 40 mg every 2 wks by his Route Service Representative He is on sulfasalazine, Humira and mesalamine enemas per his capacity planning engineer I have reviewed benefits of a whole food plant based diet He consumes dairy, cheese, sausage, hamburger. I have advised him on avoiding meats and dairy and reviewed reports and patient experience with flare of IBD and RA, as well as gastrointestinal dysbiosis. I advised him on a whole foods plant based diet. He has a associate product manager (SoundFocus XL) and interested in making healthy smoothies [...] I have ad (more content not included)... [facility] 10-05-2024 History of Present illness Narrative Images from the original note were not included. FOLLOW UP VISIT Patient's Name: Jam Erwin [facility] [id number] PCP: Jose L Lackey MD [address] [place] [phone] Consult Requested by: Jose L Lackey MD [address] [place] [phone] Other physicians: Route Service Representative prev. Nel Lebron MD (his prev. capacity planning engineer left- Ronald Brown MD) ; Now following [...] No stiffness He is on sulfasalazine per capacity planning engineer for his UC and this has been controlling his RA He is pleased with his treatment regimen He also states that his IBD is well controlled, states told is in remission, on Entyvio Doing exercise and working with household personal assistant at the gym and will be going [...] in IBD and is following with local capacity planning engineer for that. Has been on Humira since Sep 2020 (started with 80 mg loading dose and since has been on 40 mg every 2 wks) He was pleased with Enbrel response to his RA and later was switched to Humira, reports has similar benefit and is pleased with response. His capacity planning engineer switched him to Humira for optimal mgt of IBD and he feels this has helped his IBD better. Reports still gets 8 BM's a day, does not have BM at night, does not have to wake up from sleep. Has been following with his capacity planning engineer for his UC Had colonoscopy 11/22/2021 with reported marked improvement in asc/transv/desc colon and severe active in rectum, histopath with active colitis with erosions. States Dr. Lebron has started him on rectal enemas. Recent colonoscopy with reported active colitis. He tells me that he continues to have multiple BM's; His capacity planning engineer prescribed pred. course, completed recently. No jt [...] us, he is on Humira per his Route Service Representative He is off Enbrel, was switched to Humira by his capacity planning engineer. (previously was on Enbrel 25 mg twice a wk and has been in remission since on Enbrel and very pleased with his treatment regimen) He is on Humira 40 mg every 2 wks by his Route Service Representative He is on sulfasalazine, Humira and mesalamine enemas per his capacity planning engineer I have reviewed benefits of a whole food plant based diet He consumes dairy, cheese, sausage, hamburger. I have advised him on avoiding meats and dairy and reviewed reports and patient experience with flare of IBD and RA, as well as gastrointestinal dysbiosis. I advised him on a whole foods plant based diet. He has a associate product manager (SoundFocus XL) and interested in making healthy smoothies [...] in this patient with known rheumatoid arthritis. Agronomy Location Manager: CODY Transcribe Date/Time: Feb 20 2021 9:52A [...] , feels needs to pull bones apart. [facility] is the site where has fallen arch. Has seen Change Control Specialist in the remote past for the fallen arch, not recently. Feels gets stiff when not moving as much. Denies any injury or trauma. Denies any pain to me today States his capacity planning engineer has prescribed prednisone course due to IBD flare States after scope was told is flared. He is on sulfasalazine and budesonide and his capacity planning engineer and since has switched him from Enbrel [...] Alk phos isoenz: liver fraction; followed by capacity planning engineer He follows with his capacity planning engineer for hi elev alk phos and AST and for bld with stools, Dr Brown: and states he started him on iron supplement [facility] Dr. Brown prescribed metronidazole, for reported diarrhea. [facility] felt it made a difference. [facility] he gave him enemas and told that is for his ulcerative colitis and prescr. sulfasalazine. In 2019, has also followed with his capacity planning engineer for blood with stools, and had flex sig and told he was inflamed from his Ulcerative colitis. [facility] had colonosc and EGD in 2018 and was told were good. Told his bld in stools from his UC and patient states notices also mucus when wipes. [facility] had increased his sulfasalazine dose. [facility] also notices that dairy and cheese caused really bad inflammation from these and has avoided since. [facility] also avoids coffee and consumes green tea [...] systems reviewed and are negative DXA Model: ClickGanic W [id number] SITE SCANNED: Lumbar spine and left hip [...] were all normal. He follows with his capacity planning engineer for his ulcerative colitis and is on sulfasalazine. He was told by his capacity planning engineer to avoid sun exposure due to this med, had skin itching last summer. He had evaluation for elevated AST and alk phos. Alk phos has improved and AST has been borderline elevated. I have advised him to f/u with his capacity planning engineer for his elevated alk phos (liver fraction) States his capacity planning engineer did an US of his liver twice and was told was normal. He denies any alcohol consumption or acetaminophens. His isoenzyme indicated predom. of liver origin. The patient reports that his capacity planning engineer completed evaluation and told his liver is fine. His liver US was unremarkable . His anemia has resolved since his UC has been controlled. States saw his capacity planning engineer, Dr. Lebron, recently and states told him [...] and denies hematuria or dysuria. DXA Model: ClickGanic W [id number] SITE SCANNED: Lumbar spine and left hip [...] states not bad . has seen a yardage tufting machine operator in the past, in [place], Dr. Whitfield. [...] 500mg q 6hrs. Reports benefit and his capacity planning engineer took him off the iron supplement as [...] Dactylitis: no H/o precedent/frequent infection(s): as above Enthesopathy/Huntington's/heel/plantar tenderness: no Skin thickening, psoriasis, photosensitivity, purpura: no Nail changes: no Alpecia, patchy: no; has MPB Eye inflammation: no SICCA: no Oral/nasal/genital ulcers: no GI problems-diarrhea/bleeding/IBD/Gluten intolerence/Dysphagia: as above Raynaud's phenomenon/digital ulcers: no Organ inv-Serositis: no Lung disease/ILD: no Myopathy/proximal muscle weakness: no Abnormal Urine or urethritis: no Renal disease: no ASSEMBLY LINE INSPECTOR/PNS disease: no and denies MS HEME-Cytopenias/LAD/Clots: iron [...] Marital Status: Single denies children 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 Lackey Smoking: quit 2012 Alcohol as above IVDU: denies Industrial toxic exposures: denies FAMILY HISTORY: No family history on file. suspects his mother may have had RA Mother: CAD, CABG, COPD/emphysemia Father: passed from [facility] bother were smokers PERTINENT TESTS: Component [...] Abs Lymph 1.00 - 4.00 k/uL 3.02 [place]% 9.7 Abs [place] 0.00 - 0.86 k/uL 0.79 Eosin% 0.0 [...] Negative Negative Ketones, Urine Negative Negative Specific [place], Ur 1.005 - 1.030 1.008 Hemoglobin/Blood,Ur Negative 3+ (A) pH, Urine 4.5 - 8.0 6.0 Protein, Urine Negative mg/dL Negative Urobilinogen Normal Normal Nitrites Negative Negative Leukest Negative Negative Comments SEE COMMENT Urine Adan Comment SEE COMMENT WBC, Urine 0 - 5 /HPF 0-5 RBC, Urine 0 - 3 /HPF >25 (A) Sm Antibody <1.0 AI <0.2 ALLERGIST/IMMUNOLOGIST PHYSICIAN Antibody <1.0 AI 1.2 (H) SSA Antibody <1.0 AI <0.2 SSB Antibody <1.0 AI <0.2 Centromere Ab <1.0 AI <0.2 Scleroderma Ab, IgG <1.0 AI <0.2 Milagro 1 Antibody <1.0 AI <0.2 Ribosomal ALLERGIST/IMMUNOLOGIST PHYSICIAN <1.0 AI <0.2 Chromatin Antibody <1.0 AI [...] <12 Sm Antibody <1.0 AI <0.2 Ribosomal ALLERGIST/IMMUNOLOGIST PHYSICIAN <1.0 AI <0.2 Chromatin Antibody <1.0 AI <0.2 SSA Antibody <1.0 AI <0.2 SSB Antibody <1.0 AI <0.2 ALLERGIST/IMMUNOLOGIST PHYSICIAN Antibody <1.0 AI 1.2 Scleroderma Ab, IgG [...] FINDINGS CONSISTENT WITH CHRONIC SEVERE RHEUMATOID ARTHRITIS. Agronomy Location Manager: [facility] Transcribe Date/Time: Aug 29 2015 12:56P ... Last XR Ankle - Impression Only XR ANKLE GENERAL 3V AP/LAT/OBL LT Exam End: 02/20/2021 8:42 AM (Final result) Impression: IMPRESSION: Arthritic changes demonstrating interval progression in this patient with known rheumatoid arthritis. Agronomy Location Manager: CODY Transcribe Date/Time: Feb 20 2021 9:52A [...] developed and its performance characteristics determined by [facility] [place] ([facility] It has not been cleared or approved by the FDA. RT-PLIA is regulated under CLIA as qualified to [...] 147 53 - 334 mg/dL Final MPA [place], Serum Date Value Ref Range Status 08/19/2018 1,020 534 - 1,267 mg/dL Final MPA Lambda, Serum Date Value Ref Range Status 08/19/2018 551 253 - 653 mg/dL Final MPA [place]/Lambda Ratio Date Value Ref Range Status 08/19/2018 [...] , Gender: Male SCANNER INFORMATION: DXA Model: ClickGanic W [id number] SITE SCANNED: Lumbar spine and left hip [...] accurate comparison. FOR MORE INFORMATION: [facility] for Osteoporosis and Metabolic Bone Disease: www.ccf.org/arthritis/osteo National Osteoporosis Foundation: www.nof.org International Society of Clinical Densitometry www.iscd.org Agronomy Location Manager: [id number] Transcribe Date/Time: Sep 23 2022 10:28A Dictated [...] in patient's severe chronic Rheumatoid Arthritis. His capacity planning engineer has switched him to Humira as he [...] to receive intermittent steroid therapy from his capacity planning engineer. Pharmacologic therapy is still indicated and recommended, [...] Also received labs per Primary care physician, Route Service Representative -The patient's capacity planning engineer follows him for his UC, anemia and liver tests. He is on Entyvio and sulfasalazine per his Route Service Representative RA med: none from rheum, doing well on sulfasalazine, prescribed by GI (He was prev. on Enbrel 25 mg sq twice a week, or may switch to Humira if his capacity planning engineer switched him to Humira TNF inhibitor therapy, [...] on sulfasalazine for his IBD per his capacity planning engineer OP med: Received Reclast infusion, 5 mg IV on 05/09/2024 well tolerated Further infusions will be determined based on recheck DXA and CTX, or if on systemic steroids. As previously discussed, his OP med of choice is IV Reclast Oral bisphosphonate contraindicated due to his IBD and gastrointestinal disease. Osteoporosis was likely due to previous half-way steroid therapy by other physicians over the [...] and subtroch. fracture of femur with termite control representative use of bisphosphonates/alendronate and anti-resorptive agents, there [...] wished to proceed. Previous orders -CONSULT TO LOOM CHANGER -CONSULT TO PODIATRY Provided referral to OT for assistive devices, exercises to preserve left function Referral to design manager for foot/ankle deformities and callus care, inserts/braces/orthotics, [...] which included preparing to see the patient, sguj-nt-kjba patient care, completing clinical documentation, obtaining and/or [...] appropriate immunization recommended. -Continued follow up with capacity planning engineer for IBD management and monitoring for liver [...] your patient. Darrian Fischer MD Jose L Lakcey MD [address] [id number] documented in this encounter [facility] 05-09-2024 History of Present illness Narrative [...] current infection? No documented in this encounter [facility] 05-09-2024 Instructions Nidia Ascencio, COLOR DIPPER.ACCOUNTING FILE CLERK - 05/09/2024 9:45 AM EDT -PLEASE NOTE THAT WE REVIEW ALL YOUR TEST RESULTS AT YOUR NEXT FOLLOW UP VISIT WITH YOU. IF ANY ABNORMAL LAB REQUIRES SOONER ATTENTION, WE WILL CONTACT YOU. -If you have signed up on Loopd Via, we will release your test results through Loopd Via. I wish you the best of health [...] and sulfasalazine, but discuss first with your capacity planning engineer. Supplements recommended Vitamin B12: 500 to 1000 [...] track your nutrition and calcium intake on www.CrossMedia.myinfoQ This provides macro and micronutrient intake and requirements. - You can track your calcium intake on [facility] or any other calcium tracker of your [...] now for a cost, such as at www.Zigmo. -When eating a whole food plant based [...] track your nutrition and calcium intake on www.Hemophilia Resources of Americaometer.myinfoQ This provides macro and micronutrient intake and [...] that features the Whole Plant Based diet, Kaleva over knives (see video online and visit website). Another movie that was recently released is: Eating You Alive (you can find it at Gritness) and The Game Changers movie Dr. Fauzia Ansari is a [facility] physician who is an expert in Whole Plant based diet. His website is TripleLift. His research highlights the benefits of the Whole food plant based diet in reversing and preventing heart disease. Mrs. Ansari (his ) has a cookbook with many recipes on whole plant based food: The Prevent and Reverse Heart Disease cookbook. You can also consider reading his son, Eze Ansari's book: The Engine 2 cookbook Eze is a retired photo finish photographer who has helped many people get healthier [...] multiple free videos and YouTube, for example: https://youtu.be/krwRiupY3a3 , https://youtu.be/CgEADsfuy9p He has written multiple books, including Power [...] heart disease, acne, and other, his website: www.debra.myinfoQ Dr. Yayo Allred is a renowned clinical cytogeneticist scientist, who has studied and researched the benefits of the Whole plant based diet. He has also researched the adverse effects of animal proteins on health. He presents many of his research findings in his book The [place] study. Dr. Gerber Becker has completed many research trials proving the reversal of diseases, such as heart disease and early prostate cancer, with healthy lifestyle and the Whole Plant based diet. Dr. Gerber Becker website is: www.dagoberto.myinfoQ His new book: Undo It, has evidence based information and guide to following this healthy lifestyle. Dr. Cody Dillon has dedicated a website and additional time to reviewing all food related articles and research and presents them in his power point presentation and on his website at: nutritionfacts.org which is all free. Dr. Dillon has multiple free videos and YouTube, for example https://youKaonetics Technologiesu.be/aSgNkhgVtks and [email or web address]/lXXXygDRyBU. He has written multiple books including: How Not To and How Not To Diet He is now working on his next book: How Not To Age Dr. Danitza Dash (from the [facility]), has articles on the following website: Tissue Regenix Also, you could find additional information on practical to follow recipes by reading or watching online and YouTube such as: Emergency Detail Driver AJ, Cooking With Plants, The Vegan Corner (recipes from an [place] Emergency Detail Driver), The Whole Foods Plant Based Cooking Show and visiting the provided websites for additional information on the whole plant based benefit and cooking recipes. You can also consider watching the vlogs of some of the plant based Athletes such as Fausto Ewing Derek on VoteIt. Dr. Maryan Holguin (a psychiatrist who suffered [...] - Gentle Yoga Anyone Can Do Anywhere www.CreaWor/yoga Also on youtube: yoga with Karlie 3- [...] or a higher dose. Raw: Garlic, Cilantro, [place] nuts, Pumpkin seeds, Cash seeds and Flax seed powder have been reported to help with certain metal detoxification such as mercury. Freeport-3 plant based rich foods are good anti-inflammatory [...] the Whole Plant Based Diet, by watching Kaleva over Ruck.us movie and then review website. There are many other resources and educational information on the Whole plant based diet on the Internet and documentaries. There are other resources for wellness that you can also benefit from, such as the [facility] Wellness website, [facility] and includes Plant based and Mediterranean diet, yoga and meditation. Please avoid all dairy products. You could use non-dairy milk such as Flax milk, Cashew milk, Corea milk, Rice milk, Oat milk or Hemp [...] Osteoporosis Foundation) http://www.osteo.org/osteolinks.asp National Institutes of Health: 1-716-251-BONE The Calcium Information Center: -Non-Dairy, Plant based Milk, can contain in1 glass up to 450 mg of calcium (300 to 450 mg) Exampled include Oat Milk, Flax Milk, Corea Milk, Cashew Milk, Soy Milk, Peas Milk general health and well being Examples of Food Sources of Calcium from [facility] Food Milligrams (mg) per serving Percent DV* Soymilk, calcium-fortified, 8 ounces 299 30 Ruby juice, calcium-fortified, 6 ounces 261 26 Tofu, firm, made with calcium sulfate, cup* 253 25 Tofu, soft, made with calcium sulfate, cup* 138 14 Oqaaf-tl-qiq cereal, calcium-fortified, 1 cup 100-1,000 10-100 Turnip greens, fresh, boiled, cup 99 10 Kale, raw, chopped, 1 cup 100 10 Kale, fresh, cooked, 1 cup 94 9 Nigerien cabbage, bok marin, raw, shredded, 1 cup 74 7 Bread, white, 1 slice 73 7 Tortilla, corn, mtolg-sm-vomz/marshall, one 6 diameter 46 5 Tortilla, flour, bsqil-kg-xrew/marshall, one 6 diameter 32 3 Bread, whole-wheat, [...] daily with a meal; Certain patients require 1899-1423 iu daily and in patients deficient in [...] bones. Studies show approximately 50% of [place] men and women are vitamin D deficient [...] available from: www.nof.org (the national osteoporosis foundation) http://www.[facility].org/leesa storm/osteo/info.htm http://ods.od.nih.gov/factsheets/vitam ind.asp [place] Institutes of Health: 3-028-971-BONE [facility]: Review of Osteoporosis medications Medications that prevent [...] atypical and subtroch. fracture of femur with half-way use of bisphosphonates/alendronate and anti-resorptive agents, there [...] and answer all OP questions. At the [facility], we work as a team for your care, along with Nurse Practitioners, Physician Assistants, Nurses and Medical Assistants. It is a privilege and honor to serve you. Thank you for choosing The [facility] for your healthcare. Sincerely, Nidia Ascencio APRN.ACCOUNTING FILE CLERK documented in this encounter [facility] 05-09-2024 History of Present illness Narrative [...] in patient's severe chronic Rheumatoid Arthritis. His capacity planning engineer has switched him to Humira as he [...] IBD and intermittent steroid therapy from his capacity planning engineer. Pharmacologic therapy is still indicated and recommended, [...] which included preparing to see the patient, iqxj-dn-vvlz patient care, completing clinical documentation, obtaining and/or [...] YOU. -If you have signed up on Loopd Via, we will release your test results through Loopd Via. I wish you the best of health [...] and sulfasalazine, but discuss first with your capacity planning engineer. Supplements recommended Vitamin B12: 500 to 1000 [...] track your nutrition and calcium intake on www.[facility] This provides macro and micronutrient intake and requirements. - You can track your calcium intake on [facility] or any other calcium tracker of your [...] now for a cost, such as at www.Zigmo. -When eating a whole food plant based [...] that features the Whole Plant Based diet, Kaleva over knives (see video online and visit website). Another movie that was recently released is: Eating You Alive (you can find it at Gritness) and The Game Changers movie Dr. Fauzia nAsari is a [facility] physician who is an expert in Whole Plant based diet. His website is TripleLift. His research highlights the benefits of the Whole food plant based diet in reversing and preventing heart disease. Mrs. Ansari (his ) has a cookbook with many recipes on whole plant based food: The Prevent and Reverse Heart Disease cookbook. You can also consider reading his son, Eze Ansari's book: The Engine 2 cookbook Eze is a retired photo finish photographer who has helped many people get healthier by following the whole food plant based diet. Dr. Rock Velazco, has a website and free angélica to help get started on a whole plant based diet, at www.pcrNiles Media Group.org and you can log on for free for his 21-Day Kickstart with meals and recipes to follow for 21 days. There is also a free angélica for that. He has multiple free videos and YouTube, for example: https://youhurleypalmerflatt.Beyond Games/cmpQhmmK9v6 , https://youhurleypalmerflatt.be/KhZUCabms7e He has written multiple books, including Air Intelligence for the Brain, The Cheese Trap, Dr. Rock Velazco's Program for Reversing Diabetes, Your Body in Balance Dr. Anthony Carlson has shown the benefit of a starch based whole food plant based diet to his Rheumatoid Arthritis patients, as well as patient with diabetes II, hypertension, obesity, multiple sclerosis, heart disease, acne, and other, his website: www.magnoliaElpasl.myinfoQ Dr. Yayo Allred is a renowned clinical cytogeneticist scientist, who has studied and researched the benefits of the Whole plant based diet. He has also researched the adverse effects of animal proteins on health. He presents many of his research findings in his book The [place] study. Dr. Gerber Becker has completed many research trials proving the reversal of diseases, such as heart disease and early prostate cancer, with healthy lifestyle and the Whole Plant based diet. Dr. Gerber Becker website is: www.carmenEnvironmental Support Solutions.myinfoQ His new book: Undo It, has evidence based information and guide to following this healthy lifestyle. Dr. Cody Dillon has dedicated a website and additional time to reviewing all food related articles and research and presents them in his power point presentation and on his website at: nutritionfacts.org which is all free. Dr. Dillon has multiple free videos and YouTube, for example https://youKaonetics Technologiesu.be/aSgNkhgVtks and https://[email or web address]/lXXXygDRyBU. He has written multiple books including: How Not To and How Not To Diet He is now working on his next book: How Not To Age Dr. Danitza Dash (from the [facility]), has articles on the following website: Tissue Regenix Also, you could find additional information on practical to follow recipes by reading or watching online and YouTube such as: Emergency Detail Driver AJ, Cooking With Plants, The Vegan Corner (recipes from an [place] Emergency Detail Driver), The Whole Foods Plant Based Cooking Show and visiting the provided websites for additional information on the whole plant based benefit and cooking recipes. You can also consider watching the vlogs of some of the plant based Athletes such as Fausto Ewing Derek on VoteIt. Dr. Maryan Holguin (a psychiatrist who suffered [...] - Gentle Yoga Anyone Can Do Anywhere www.e[employer].myinfoQ/yoga Also on youtube: yoga with Karlie 3- [...] or a higher dose. Raw: Garlic, Cilantro, [place] nuts, Pumpkin seeds, Cash seeds and Flax seed powder have been reported to help with certain metal detoxification such as mercury. Freeport-3 plant based rich foods are good anti-inflammatory [...] the Whole Plant Based Diet, by watching Kaleva over Ruck.us movie and then review website. There are many other resources and educational information on the Whole plant based diet on the Internet and documentaries. There are other resources for wellness that you can also benefit from, such as the [facility] Wellness website, [facility] and includes Plant based and Mediterranean diet, yoga and meditation. Please avoid all dairy products. You could use non-dairy milk such as Flax milk, Cashew milk, Corea milk, Rice milk, Oat milk or Hemp [...] Osteoporosis Foundation) http://www.osteo.org/osteolinks.asp [facility]: 5-919-142-BONE The Calcium Information [place]: -Non-Dairy, Plant based Milk, can contain in1 glass up to 450 mg of calcium (300 to 450 mg) Exampled include Oat Milk, Flax Milk, Corea Milk, Cashew Milk, Soy Milk, Peas Milk general health and well being Examples of Food Sources of Calcium from [facility] Food Milligrams (mg) per serving Percent DV* Soymilk, calcium-fortified, 8 ounces 299 30 Ruby juice, calcium-fortified, 6 ounces 261 26 Tofu, firm, made with calcium sulfate, cup* 253 25 Tofu, soft, made with calcium sulfate, cup* 138 14 Cctwz-yq-ucv cereal, calcium-fortified, 1 cup 100-1,000 10-100 Turnip greens, fresh, boiled, cup 99 10 Kale, raw, chopped, 1 cup 100 10 Kale, fresh, cooked, 1 cup 94 9 Nigerien cabbage, bok marin, raw, shredded, 1 cup 74 7 Bread, white, 1 slice 73 7 Tortilla, corn, wpkyy-fa-phal/marshall, one 6 diameter 46 5 Tortilla, flour, tclwv-rj-ajzl/marshall, one 6 diameter 32 3 Bread, whole-wheat, [...] daily with a meal; Certain patients require 6012-2964 iu daily and in patients deficient in [...] bones. Studies show approximately 50% of [place] men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 foods are good anti-inflammatory [...] the Whole Plant Based Diet, by watching Kaleva over Knives movie and then review website. There are many other resources and educational information on the Whole plant based diet on the Internet and documentaries. There are other resources for wellness that you can also benefit from, such as the [facility] Wellness website, [facility] and includes Plant based and Mediterranean diet, yoga and meditation. Please avoid all dairy products. You could use non-dairy milk such as Flax milk, Cashew milk, Corea milk, Rice milk, Oat milk or Hemp [...] following resources: www.nof.org (National Osteoporosis Foundation) http://www.osteo.org/osteolinks.asp [place] [facility] [place] [facility]: 8-502-295-BONE The Calcium Information [place]: -Non-Dairy, Plant based Milk, can contain in1 glass up to 450 mg of calcium (300 to 450 mg) Exampled include Oat Milk, Flax Milk, Corea Milk, Cashew Milk, Soy Milk, Peas Milk general health and well being Examples of Food Sources of Calcium from [facility] Food Milligrams (mg) per serving Percent DV* Soymilk, calcium-fortified, 8 ounces 299 30 Ruby juice, calcium-fortified, 6 ounces 261 26 Tofu, firm, made with calcium sulfate, cup* 253 25 Tofu, soft, made with calcium sulfate, cup* 138 14 Urfpk-vl-xmc cereal, calcium-fortified, 1 cup 100-1,000 10-100 Turnip greens, fresh, boiled, cup 99 10 Kale, raw, chopped, 1 cup 100 10 Kale, fresh, cooked, 1 cup 94 9 Nigerien cabbage, bok marin, raw, shredded, 1 cup 74 7 Bread, white, 1 slice 73 7 Tortilla, corn, spiui-mh-twkn/marshall, one 6 diameter 46 5 Tortilla, flour, qxswk-ai-epbf/marshall, one 6 diameter 32 3 Bread, whole-wheat, [...] daily with a meal; Certain patients require 5194-7479 iu daily and in patients deficient in [...] bones. Studies show approximately 50% of [place] men and women are vitamin D deficient [...] national osteoporosis foundation) http://www.[facility].org/arthrit is/osteo/info.htm http://ods.od.nih.gov/factsheets/vitam ind.asp [place] [facility]: 0-788-350-BONE The Calcium Information [place]: At the [facility], we work as a team for your care, along with Nurse Practitioners, Physician Assistants, Nurses and Medical Assistants. It is a privilege and honor to serve you. Thank you for choosing The [facility] for your healthcare. Sincerely, Nidia Ascencio APRN.ACCOUNTING FILE CLERK documented in this encounter [facility] 05-04-2023 History of Present illness Narrative [...] was there Goes back fitting denture 09/09 [facility] dental [phone] GI - colitis 03/23 Had colonoscopy - [...] in patient's severe chronic Rheumatoid Arthritis. His capacity planning engineer has switched him to Humira as he [...] IBD and intermittent steroid therapy from his capacity planning engineer. Pharmacologic therapy is still indicated and recommended, [...] necessary, CC, NOF and ISCD and [facility]. PLAN: [facility] on 05/04/23 VITAMIN D 25 HYDROXY RENAL FUNCTION PANEL MONOCLONAL PROT UR W/INTERP Labs prior to next visit Reclast - You are on entyvio and sulfasalazine for your Ulcerative Colitis. These are also treating your Rheumatoid Arthritis. During infections you will need to hold the entyvio and sulfasalazine, but discuss first with your capacity planning engineer. Supplements recommended Vitamin B12: 500 to 1000 [...] the office. This medication is given termite control representative, indefinitely. Prolia should not be discontinued without [...] looked into transition therapy. Recent study from [facility] Slim et al, 04/11/2020, reported [...] and subtroch. fracture of femur with termite control representative use of bisphosphonates/alendronate and anti-resorptive agents, there [...] the care of your patient. Nidia Ascencio APRN.[facility] Jose L Lackey MD, MD Patient Instructions -PLEASE NOTE THAT WE REVIEW ALL YOUR TEST RESULTS AT YOUR NEXT FOLLOW UP VISIT WITH YOU. IF ANY ABNORMAL LAB REQUIRES SOONER ATTENTION, WE WILL CONTACT YOU. -If you have signed up on Loopd Via, we will release your test results through Loopd Via. I wish you the best of health [...] and sulfasalazine, but discuss first with your capacity planning engineer. Supplements recommended Vitamin B12: 500 to 1000 [...] track your nutrition and calcium intake on www.[email or web address].myinfoQ This provides macro and micronutrient intake and requirements. - You can track your calcium intake on [facility] or any other calcium tracker of your [...] now for a cost, such as at www.Zigmo. -When eating a whole food plant based [...] track your nutrition and calcium intake on www.cronometer.myinfoQ This provides macro and micronutrient intake and [...] that features the Whole Plant Based diet, Kaleva over knives (see video online and visit website). Another movie that was recently released is: Eating You Alive (you can find it at Gritness) and The Game Changers movie Dr. Fauzia Ansari is a [facility] physician who is an expert in Whole Plant based diet. His website is TripleLift. His research highlights the benefits of the Whole food plant based diet in reversing and preventing heart disease. Mrs. Ansari (his ) has a cookbook with many recipes on whole plant based food: The Prevent and Reverse Heart Disease cookbook. You can also consider reading his son, Eze Ansari's book: The Engine 2 cookbook Eze is a retired photo finish photographer who has helped many people get healthier by following the whole food plant based diet. Dr. Rock Vleazco, has a website and free angélica to help get started on a whole plant based diet, at www.Sun[employer].org and you can log on for free for his 21-Day Kickstart with meals and recipes to follow for 21 days. There is also a free angélica for that. He has multiple free videos and YouTube, for example: https://youKaonetics Technologiesu.be/icwVxpeV3f5 , https://youtu.be/RrSNJqudx2e He has written multiple books, including Air Intelligence for the Brain, The Cheese Trap, Dr. Rock Velazco's Program for Reversing Diabetes, Your Body in Balance Dr. Anthony Carlson has shown the benefit of a starch based whole food plant based diet to his Rheumatoid Arthritis patients, as well as patient with diabetes II, hypertension, obesity, multiple sclerosis, heart disease, acne, and other, his website: www.debra.myinfoQ Dr. Yayo Allred is a renowned clinical cytogeneticist scientist, who has studied and researched the benefits of the Whole plant based diet. He has also researched the adverse effects of animal proteins on health. He presents many of his research findings in his book The [place] study. Dr. Gerber Becker has completed many research trials proving the reversal of diseases, such as heart disease and early prostate cancer, with healthy lifestyle and the Whole Plant based diet. Dr. Gerber Becker website is: www.alvaroEpplament Energy.myinfoQ His new book: Undo It, has evidence [...] To Age Dr. Danitza Dash (from the [facility]), has articles on the following website: Health Catalyst.myinfoQ Also, you could find additional information on practical to follow recipes by reading or watching online and YouTube such as: Emergency Detail Driver AJ, Cooking With Plants, The Vegan Corner (recipes from an [place] Emergency Detail Driver), The Whole Foods Plant Based Cooking Show and visiting the provided websites for additional information on the whole plant based benefit and cooking recipes. You can also consider watching the vlogs of some of the plant based Athletes such as Graeme Kamara, Agustin Lundy on VoteIt. Dr. Maryan Holguin (a psychiatrist who suffered [...] - Gentle Yoga Anyone Can Do Anywhere www.eMerge [employer].myinfoQ/yoga Also on youtube: yoga with Karlie 3- [...] or a higher dose. Raw: Garlic, Cilantro, [place] nuts, Pumpkin seeds, Cash seeds and Flax seed powder have been reported to help with certain metal detoxification such as mercury. Freeport-3 plant based rich foods are good anti-inflammatory [...] the Whole Plant Based Diet, by watching Kaleva over Ruck.us movie and then review website. There are many other resources and educational information on the Whole plant based diet on the Internet and documentaries. There are other resources for wellness that you can also benefit from, such as the [facility] Wellness website, [facility] and includes Plant based and Mediterranean diet, yoga and meditation. Please avoid all dairy products. You could use non-dairy milk such as Flax milk, Cashew milk, Corea milk, Rice milk, Oat milk or Hemp [...] Osteoporosis Foundation) http://www.osteo.org/osteolinks.asp [facility]: 7-482-074-BONE [facility] Calcium Information [place]: -Non-Dairy, Plant based Milk, can contain in1 glass up to 450 mg of calcium (300 to 450 mg) Exampled include Oat Milk, Flax Milk, Corea Milk, Cashew Milk, Soy Milk, Peas Milk general health and well being Examples of Food Sources of Calcium from [facility] Food Milligrams (mg) per serving Percent DV* Soymilk, calcium-fortified, 8 ounces 299 30 Ruby juice, calcium-fortified, 6 ounces 261 26 Tofu, firm, made with calcium sulfate, cup* 253 25 Tofu, soft, made with calcium sulfate, cup* 138 14 Dxilq-sf-lun cereal, calcium-fortified, 1 cup 100-1,000 10-100 Turnip greens, fresh, boiled, cup 99 10 Kale, raw, chopped, 1 cup 100 10 Kale, fresh, cooked, 1 cup 94 9 Nigerien cabbage, bok marin, raw, shredded, 1 cup 74 7 Bread, white, 1 slice 73 7 Tortilla, corn, tmsyf-fq-iqdl/marshall, one 6 diameter 46 5 Tortilla, flour, sfrvo-us-zmcr/marshall, one 6 diameter 32 3 Bread, whole-wheat, [...] could acces this information online at: http://ods.od.nih.gov/factsheets/Calci -[facility]/ Vitamin D: Vitamin D3= cholecalciferol, available over the counter. Dose recommended 800 to 1000 iu daily with a meal; Certain patients require 6920-3871 iu daily and in patients deficient in [...] bones. Studies show approximately 50% of [place] men and women are vitamin D deficient [...] national osteoporosis foundation) http://www.[facility].org/arthrit is/osteo/info.htm http://ods.od.nih.gov/factsheets/vitam ind.asp [place] [facility]: 4-997-090-BONE The Calcium Information Center: At the [facility], we work as a team for your care, along with Nurse Practitioners, Physician Assistants, Nurses and Medical Assistants. It is a privilege and honor to serve you. Thank you for choosing The [facility] for your healthcare. Sincerely, Nidia Ascencio APRN.ACCOUNTING FILE CLERK PAST MEDICAL HISTORY Diagnosis Date Monoclonal [...] in am, 3 noon, 2 pm), per capacity planning engineer No current facility-administered medications for this visit. [...] developed and its performance characteristics determined by [facility] [place] ([facility]). It has not been cleared [...] 147 53 - 334 mg/dL Final MPA [place], Serum Date Value Ref Range Status 08/19/2018 1,020 534 - 1,267 mg/dL Final MPA [place], Serum Date Value Ref Range Status 08/19/2018 551 253 - 653 mg/dL Final MPA [place]/Lambda Ratio Date Value Ref Range Status 08/19/2018 [...] DATE OF EXAM: Sep 23 2022 10:03AM [facility] 0804 - DXA - AXIAL SKELETON / PROCEDURE REASON: multiple diagnoses * * * * Physician Interpretation * * * * EXAMINATION: DXA BONE DENSITOMETRY BD DXA - AXIAL SKELETON PATIENT DEMOGRAPHICS: Age: 57 years, Race: , Gender: Male SCANNER INFORMATION: DXA Model: ClickGanic W [id number] SITE SCANNED: Lumbar spine and left hip [...] machine for accurate comparison. FOR MORE INFORMATION: [facility] Osteoporosis and Metabolic Bone Disease: www.ccf.org/arthritis/osteo National Osteoporosis Foundation: www.nof.org International Society of Clinical Densitometry www.iscd.org Agronomy Location Manager: [id number] Transcribe Date/Time: Sep 23 2022 10:28A Dictated by : DARRIAN DUBON MD This examination was interpreted and the report reviewed and electronically signed by: DARRIAN DUBON MD on Sep 28 2022 6:46PM EST documented in this encounter [facility] 03-02-2023 Instructions Nidia Ascencio APRN.JOSE - 03/02/2023 11:10 AM EDT -PLEASE NOTE THAT WE REVIEW ALL YOUR TEST RESULTS AT YOUR NEXT FOLLOW UP VISIT WITH YOU. IF ANY ABNORMAL LAB REQUIRES SOONER ATTENTION, WE WILL CONTACT YOU. -If you have signed up on 1EQt, we will release your test results through Loopd Via. I wish you the best of health [...] and sulfasalazine, but discuss first with your capacity planning engineer. Supplements recommended Vitamin B12: 500 to 1000 [...] track your nutrition and calcium intake on www.CrossMedia.myinfoQ This provides macro and micronutrient intake and requirements. - You can track your calcium intake on [facility] or any other calcium tracker of your [...] now for a cost, such as at www.Zigmo. -When eating a whole food plant based [...] track your nutrition and calcium intake on www.cronometer.myinfoQ This provides macro and micronutrient intake and [...] that features the Whole Plant Based diet, Kaleva over knives (see video online and visit website). Another movie that was recently released is: Eating You Alive (you can find it at Gritness) and The DigiZmart [employer]ising [employer] movie Dr. Fauzia Ansari is a [facility] physician who is an expert in Whole Plant based diet. His website is TripleLift. His research highlights the benefits of the Whole food plant based diet in reversing and preventing heart disease. Mrs. Ansari (his ) has a cookbook with many recipes on whole plant based food: The Prevent and Reverse Heart Disease cookbook. You can also consider reading his son, Eze Ansari's book: The Engine 2 cookbook Eze is a retired photo finish photographer who has helped many people get healthier [...] multiple free videos and YouTube, for example: https://youtu.be/hfsXtjoH1h3 , https://youtu.be/QdXAEfgpg6t He has written multiple books, including Power [...] heart disease, acne, and other, his website: www.tejadomaríal.myinfoQ Dr. Yayo Allred is a renowned clinical cytogeneticist scientist, who has studied and researched the benefits of the Whole plant based diet. He has also researched the adverse effects of animal proteins on health. He presents many of his research findings in his book The [place] study. Dr. Gerber Becker has completed many research trials proving the reversal of diseases, such as heart disease and early prostate cancer, with healthy lifestyle and the Whole Plant based diet. Dr. Gerber Becker website is: www.carmenEnvironmental Support Solutions.myinfoQ His new book: Undo It, has evidence based information and guide to following this healthy lifestyle. Dr. Cody Dillon has dedicated a website and additional time to reviewing all food related articles and research and presents them in his power point presentation and on his website at: nutritionfacts.org which is all free. Dr. Dillon has multiple free videos and YouTube, for example https://Join The Wellness Team.Beyond Games/aSgNkhgVtks and https://Join The Wellness Team.Beyond Games/lXXXygDRyBU. He has written multiple books including: How Not To and How Not To Diet He is now working on his next book: How Not To Age Dr. Danitza Dash (from the [facility]), has articles on the following website: Health Catalyst.myinfoQ Also, you could find additional information on practical to follow recipes by reading or watching online and YouTube such as: Emergency Detail Driver AJ, Cooking With Plants, The Vegan Corner (recipes from an [place] Emergency Detail Driver), The Whole Foods Plant Based Cooking Show and visiting the provided websites for additional information on the whole plant based benefit and cooking recipes. You can also consider watching the vlogs of some of the plant based Athletes such as Fausto Ewing Derek on [employer] Nutrition. Dr. Maryan Holguin (a psychiatrist who [...] - Gentle Yoga Anyone Can Do Anywhere www.CreaWor/yoga Also on youtube: yoga with Karlie 3- [...] or a higher dose. Raw: Garlic, Cilantro, [place] nuts, Pumpkin seeds, Cash seeds and Flax seed powder have been reported to help with certain metal detoxification such as mercury. Freeport-3 plant based rich foods are good anti-inflammatory [...] the Whole Plant Based Diet, by watching Kaleva over Ruck.us movie and then review website. There are many other resources and educational information on the Whole plant based diet on the Internet and documentaries. There are other resources for wellness that you can also benefit from, such as the [facility] Wellness website, [facility] and includes Plant based and Mediterranean diet, yoga and meditation. Please avoid all dairy products. You could use non-dairy milk such as Flax milk, Cashew milk, Corea milk, Rice milk, Oat milk or Hemp [...] Osteoporosis Foundation) http://www.osteo.org/osteolinks.asp National Institutes of Health: 3-797-646-BONE The Calcium Information Center: -Non-Dairy, Plant based Milk, can contain in1 glass up to 450 mg of calcium (300 to 450 mg) Exampled include Oat Milk, Flax Milk, Corea Milk, Cashew Milk, Soy Milk, Peas Milk general health and well being Examples of Food Sources of Calcium from NIH Food Milligrams (mg) per serving Percent DV* Soymilk, calcium-fortified, 8 ounces 299 30 Ruby juice, calcium-fortified, 6 ounces 261 26 Tofu, firm, made with calcium sulfate, cup* 253 25 Tofu, soft, made with calcium sulfate, cup* 138 14 Dctai-jk-bpb cereal, calcium-fortified, 1 cup 100-1,000 10-100 Turnip greens, fresh, boiled, cup 99 10 Kale, raw, chopped, 1 cup 100 10 Kale, fresh, cooked, 1 cup 94 9 Nigerien cabbage, bok marin, raw, shredded, 1 cup 74 7 Bread, white, 1 slice 73 7 Tortilla, corn, kzrvq-pw-aluk/marshall, one 6 diameter 46 5 Tortilla, flour, ttquz-ti-qnro/marshall, one 6 diameter 32 3 Bread, whole-wheat, [...] daily with a meal; Certain patients require 3214-9553 iu daily and in patients deficient in [...] bones. Studies show approximately 50% of [place] men and women are vitamin D deficient [...] is/osteo/info.htm http://ods.od.nih.gov/factsheets/vitam ind.asp National Institutes of Health: 7-089-229-BONE The Calcium Information [place]: At the [facility], we work as a team for your care, along with Nurse Practitioners, Physician Assistants, Nurses and Medical Assistants. It is a privilege and honor to serve you. Thank you for choosing The [facility] for your healthcare. Sincerely, Nidia Ascencio APRN.JOSE documented in this encounter [facility] 03-02-2023 History of Present illness Narrative [...] in patient's severe chronic Rheumatoid Arthritis. His capacity planning engineer has switched him to Humira as he [...] IBD and intermittent steroid therapy from his capacity planning engineer. Pharmacologic therapy is still indicated and recommended, [...] necessary, CC, NOF and ISCD and [facility]. PLAN: No orders found for this visit on 03/02/23. Please continue on yout Vitamin D 5000 international units once daily with meals and your multivitamin - You are on Humira and sulfasalazine for your Ulcerative Colitis. These are also treating your Rheumatoid Arthritis. During infections you will need to hold the Humira and sulfasalazine, but discuss first with your capacity planning engineer. Supplements recommended Vitamin B12: 500 to 1000 [...] in the office. This medication is given half-way, indefinitely. Prolia should not be discontinued without [...] looked into transition therapy. Recent study from [facility] Slim et al, 04/11/2020, reported [...] atypical and subtroch. fracture of femur with half-way use of bisphosphonates/alendronate and anti-resorptive agents, there [...] the care of your patient. Nidia Ascencio APRN.ACCOUNTING FILE CLERK cc Jose L Lackey MD, MD Patient Instructions -PLEASE NOTE THAT WE REVIEW ALL YOUR TEST RESULTS AT YOUR NEXT FOLLOW UP VISIT WITH YOU. IF ANY ABNORMAL LAB REQUIRES SOONER ATTENTION, WE WILL CONTACT YOU. -If you have signed up on Loopd Via, we will release your test results through Loopd Via. I wish you the best of health [...] and sulfasalazine, but discuss first with your capacity planning engineer. Supplements recommended Vitamin B12: 500 to 1000 [...] track your nutrition and calcium intake on www.CrossMedia.myinfoQ This provides macro and micronutrient intake and requirements. - You can track your calcium intake on [facility] or any other calcium tracker of your [...] now for a cost, such as at www.Zigmo. -When eating a whole food plant based [...] that features the Whole Plant Based diet, Kaleva over knives (see video online and visit website). Another movie that was recently released is: Eating You Alive (you can find it at [employer].myinfoQ) and The Game Changers movie Dr. Fauzia Ansari is a [facility] physician who is an expert in Whole Plant based diet. His website is TripleLift. His research highlights the benefits of the Whole food plant based diet in reversing and preventing heart disease. Mrs. Ansari (his ) has a cookbook with many recipes on whole plant based food: The Prevent and Reverse Heart Disease cookbook. You can also consider reading his son, Eze Ansari's book: The Engine 2 cookbook Eze is a retired photo finish photographer who has helped many people get healthier by following the whole food plant based diet. Dr. Rock Velazco, has a website and free angélica to help get started on a whole plant based diet, at www.SunPower Corporation.BUKA and you can log on for free for his 21-Day Kickstart with meals and recipes to follow for 21 days. There is also a free angélica for that. He has multiple free videos and YouTube, for example: https://youKaonetics Technologiesu.be/[email or web address] , https://youKaonetics Technologiesu.be/BlVDIkfqp0p He has written multiple books, including Power [...] heart disease, acne, and other, his website: www.debra.myinfoQ Dr. Yayo Allred is a renowned clinical cytogeneticist scientist, who has studied and researched the benefits of the Whole plant based diet. He has also researched the adverse effects of animal proteins on health. He presents many of his research findings in his book The [place] study. Dr. Gerber Becker has completed many research trials proving the reversal of diseases, such as heart disease and early prostate cancer, with healthy lifestyle and the Whole Plant based diet. Dr. Gerber Becker website is: www.carmenStudioNowevelyn.myinfoQ His new book: Undo It, has evidence [...] To Age Dr. Danitza Dash (from the [facility]), has articles on the following website: Tissue Regenix Also, you could find additional information on practical to follow recipes by reading or watching online and YouTube such as: Emergency Detail Driver AJ, Cooking With Plants, The Vegan Corner (recipes from an [place] Emergency Detail Driver), The Whole Foods Plant Based Cooking Show and visiting the provided websites for additional information on the whole plant based benefit and cooking recipes. You can also consider watching the vlogs of some of the plant based Athletes such as Fausto Ewing Derek on VoteIt. Dr. Maryan Holguin (a psychiatrist who suffered [...] - Gentle Yoga Anyone Can Do Anywhere www.eMerge [employer].myinfoQ/yoga Also on youtube: yoga with Karlie 3- [...] or a higher dose. Raw: Garlic, Cilantro, [place] nuts, Pumpkin seeds, Cash seeds and Flax seed powder have been reported to help with certain metal detoxification such as mercury. Freeport-3 plant based rich foods are good anti-inflammatory [...] the Whole Plant Based Diet, by watching Kaleva over Knives movie and then review website. There are many other resources and educational information on the Whole plant based diet on the Internet and documentaries. There are other resources for wellness that you can also benefit from, such as the [facility] Wellness website, [facility] and includes Plant based and Mediterranean diet, yoga and meditation. Please avoid all dairy products. You could use non-dairy milk such as Flax milk, Cashew milk, Corea milk, Rice milk, Oat milk or Hemp [...] following resources: www.nof.org (National Osteoporosis Foundation) http://www.osteo.org/osteolinks.asp [place] [facility]: 0-267-108-BONE The Calcium Information [place]: -Non-Dairy, Plant based Milk, can contain in1 glass up to 450 mg of calcium (300 to 450 mg) Exampled include Oat Milk, Flax Milk, Corea Milk, Cashew Milk, Soy Milk, Peas Milk general health and well being Examples of Food Sources of Calcium from [facility] Food Milligrams (mg) per serving Percent DV* Soymilk, calcium-fortified, 8 ounces 299 30 Ruby juice, calcium-fortified, 6 ounces 261 26 Tofu, firm, made with calcium sulfate, cup* 253 25 Tofu, soft, made with calcium sulfate, cup* 138 14 Jbkuc-sv-ypn cereal, calcium-fortified, 1 cup 100-1,000 10-100 Turnip greens, fresh, boiled, cup 99 10 Kale, raw, chopped, 1 cup 100 10 Kale, fresh, cooked, 1 cup 94 9 Nigerien cabbage, bok marin, raw, shredded, 1 cup 74 7 Bread, white, 1 slice 73 7 Tortilla, corn, xmlpe-sc-zbxu/marshall, one 6 diameter 46 5 Tortilla, flour, ehcro-hx-ziar/marshall, one 6 diameter 32 3 Bread, whole-wheat, [...] daily with a meal; Certain patients require 0681-7531 iu daily and in patients deficient in [...] bones. Studies show approximately 50% of [place] men and women are vitamin D deficient [...] national osteoporosis foundation) http://www.[facility].org/arthrit is/osteo/info.htm http://ods.od.nih.gov/factsheets/vitam ind.asp [place] [facility]: 1-137-600-BONE [facility] Calcium Information [place]: At the [facility], we work as a team for your care, along with Nurse Practitioners, Physician Assistants, Nurses and Medical Assistants. It is a privilege and honor to serve you. Thank you for choosing [facility] for your healthcare. Sincerely, Nidia Ascencio APRN.ACCOUNTING FILE CLERK PAST MEDICAL HISTORY Diagnosis Date Monoclonal [...] mg subcutaneously every 2 weeks. Prescribed by Route Service Representative : Nel Lebron MD Previously prescr. by [...] in am, 3 noon, 2 pm), per capacity planning engineer No current facility-administered medications for this visit. [...] developed and its performance characteristics determined by [facility]'s [facility] Pathology and Laboratory [facility] [place] (-PLIA). It has not been cleared or approved by the FDA. RT-PLIA is regulated under CLIA as qualified to [...] 147 53 - 334 mg/dL Final MPA [place], Serum Date Value Ref Range Status 08/19/2018 1,020 534 - 1,267 mg/dL Final MPA Lambda, Serum Date Value Ref Range Status 08/19/2018 551 253 - 653 mg/dL Final MPA [place]/Lambda Ratio Date Value Ref Range Status 08/19/2018 [...] , Gender: Male SCANNER INFORMATION: DXA Model: ClickGanic W [id number] SITE SCANNED: Lumbar spine and left hip [...] machine for accurate comparison. FOR MORE INFORMATION: [facility] Center for Osteoporosis and Metabolic Bone Disease: www.ccf.org/arthritis/osteo National Osteoporosis Foundation: www.nof.org International Society of Clinical Densitometry www.iscd.org Agronomy Location Manager: [id number] Transcribe Date/Time: Sep 23 2022 10:28A Dictated by : DARRIAN DUBON MD This examination was interpreted and the report reviewed and electronically signed by: DARRIAN DUBON MD on Sep 28 2022 6:46PM EST documented in this encounter [facility] 01-15-2023 Miscellaneous Notes Lm regarding results and recommendations. Please call patient Normal vit d Please continue current dose Received outside lab results from Zbigniew Mullen ordered by Nidia Ascencio CNP -- 01/12/23 Vit D 40.2 documented in this encounter [facility] 01-11-2023 Instructions Nidia Ascencio APRN.CNP - 01/11/2023 7:57 PM EST -PLEASE NOTE THAT WE REVIEW ALL YOUR TEST RESULTS AT YOUR NEXT FOLLOW UP VISIT WITH YOU. IF ANY ABNORMAL LAB REQUIRES SOONER ATTENTION, WE WILL CONTACT YOU. -If you have signed up on Fluidnethart, we will release your test results through Loopd Via. I wish you the best of health [...] and sulfasalazine, but discuss first with your capacity planning engineer. Supplements recommended Vitamin B12: 500 to 1000 [...] track your nutrition and calcium intake on www.[facility] This provides macro and micronutrient intake and requirements. - You can track your calcium intake on [employer] [facility] or any other calcium tracker of your [...] now for a cost, such as at www.Zigmo. -When eating a whole food plant based [...] that features the Whole Plant Based diet, Kaleva over knives (see video online and visit website). Another movie that was recently released is: Eating You Alive (you can find it at Gritness) and The DigiZmart Changers movie Dr. Fauzia Ansari is a [facility] physician who is an expert in Whole Plant based diet. His website is TripleLift. His research highlights the benefits of the Whole food plant based diet in reversing and preventing heart disease. Mrs. Ansari (his ) has a cookbook with many recipes on whole plant based food: The Prevent and Reverse Heart Disease cookbook. You can also consider reading his son, Eze Ansari's book: The Engine 2 cookbook Eze is a retired photo finish photographer who has helped many people get healthier by following the whole food plant based diet. Dr. Rock Velazco, has a website and free angélica to help get started on a whole plant based diet, at www.pcrNiles Media Group.org and you can log on for free for his 21-Day Kickstart with meals and recipes to follow for 21 days. There is also a free angélica for that. He has multiple free videos and YouTube, for example: https://Join The Wellness Team.be/jvuGdvlO7c1 , https://youKaonetics Technologiesu.[email or web address] He has written multiple books, including Power BitX for the Brain, The Cheese Trap, Dr. Rock Velazco's Program for Reversing Diabetes, Your Body in Balance Dr. Anthony Carlson has shown the benefit of a starch based whole food plant based diet to his Rheumatoid Arthritis patients, as well as patient with diabetes II, hypertension, obesity, multiple sclerosis, heart disease, acne, and other, his website: www.debra.myinfoQ Dr. Yayo Allred is a renowned clinical cytogeneticist scientist, who has studied and researched the benefits of the Whole plant based diet. He has also researched the adverse effects of animal proteins on health. He presents many of his research findings in his book The [place] study. Dr. Gerber Becker has completed many research trials proving the reversal of diseases, such as heart disease and early prostate cancer, with healthy lifestyle and the Whole Plant based diet. Dr. Gerber Becker website is: www.carmenEnvironmental [employer].myinfoQ His new book: Undo It, has evidence [...] To Age Dr. Danitza Dash (from the [facility]), has articles on the following website: Tissue Regenix Also, you could find additional information on practical to follow recipes by reading or watching online and YouTube such as: Emergency Detail Driver AJ, Cooking With Plants, The Vegan Corner (recipes from an [place] Emergency Detail Driver), The Whole Foods Plant Based Cooking Show and visiting the provided websites for additional information on the whole plant based benefit and cooking recipes. You can also consider watching the vlogs of some of the plant based Athletes such as Fausto Ewing Derek on VoteIt. Dr. Maryan Holguin (a psychiatrist who suffered [...] - Gentle Yoga Anyone Can Do Anywhere www.[employer].myinfoQ/yoga Also on youtube: yoga with Karlie 3- [...] or a higher dose. Raw: Garlic, Cilantro, [place] nuts, Pumpkin seeds, Cash seeds and Flax seed powder have been reported to help with certain metal detoxification such as mercury. Freeport-3 plant based rich foods are good anti-inflammatory [...] the Whole Plant Based Diet, by watching Kaleva over Ruck.us movie and then review website. There are many other resources and educational information on the Whole plant based diet on the Internet and documentaries. There are other resources for wellness that you can also benefit from, such as the [facility] Wellness website, el pasoclinic.org and includes Plant based and Mediterranean diet, yoga and meditation. Please avoid all dairy products. You could use non-dairy milk such as Flax milk, Cashew milk, Corea milk, Rice milk, Oat milk or Hemp [...] following resources: www.nof.org (National Osteoporosis Foundation) http://www.osteo.org/osteolinks.asp [place] [facility]: 4-667-485-BONE [facility] Calcium Information [place]: -Non-Dairy, Plant based Milk, can contain in1 glass up to 450 mg of calcium (300 to 450 mg) Exampled include Oat Milk, Flax Milk, Corea Milk, Cashew Milk, Soy Milk, Peas Milk general health and well being Examples of Food Sources of Calcium from [facility] Food Milligrams (mg) per serving Percent DV* Soymilk, calcium-fortified, 8 ounces 299 30 Ruby juice, calcium-fortified, 6 ounces 261 26 Tofu, firm, made with calcium sulfate, cup* 253 25 Tofu, soft, made with calcium sulfate, cup* 138 14 Fvyqj-gw-ccp cereal, calcium-fortified, 1 cup 100-1,000 10-100 Turnip greens, fresh, boiled, cup 99 10 Kale, raw, chopped, 1 cup 100 10 Kale, fresh, cooked, 1 cup 94 9 Nigerien cabbage, bok marin, raw, shredded, 1 cup 74 7 Bread, white, 1 slice 73 7 Tortilla, corn, zxtzm-vs-hjrt/marshall, one 6 diameter 46 5 Tortilla, flour, hyaon-nm-ozec/marshall, one 6 diameter 32 3 Bread, whole-wheat, [...] could acces this information online at: http://ods.od.nih.gov/factsheets/Calci -[facility] [facility] ClinicProfessselect [facility]/ Vitamin D: Vitamin D3= cholecalciferol, available over the counter. Dose recommended 800 to 1000 iu daily with a meal; Certain patients require 1963-0348 iu daily and in patients deficient in [...] bones. Studies show approximately 50% of [place] men and women are vitamin D deficient [...] available from: www.nof.org (the national osteoporosis foundation) http://www.[facility].org/arthrit is/osteo/info.htm http://ods.od.nih.gov/factsheets/vitam ind.asp [place] [facility]: 3-634-392-BONE [facility] Calcium Information [place]: At the [facility], we work as a team for your care, along with Nurse Practitioners, Physician Assistants, Nurses and Medical Assistants. It is a privilege and honor to serve you. Thank you for choosing [facility] for your healthcare. Sincerely, Nidia Ascencoi APRN.JOSE documented in this encounter [facility] 12-29-2022 History of Present illness Narrative [...] in patient's severe chronic Rheumatoid Arthritis. His capacity planning engineer has switched him to Humira as he [...] IBD and intermittent steroid therapy from his capacity planning engineer. Pharmacologic therapy is still indicated and recommended, [...] necessary, CC, NOF and ISCD and [facility]. PLAN: [facility] on 12/29/22 VITAMIN D 25 HYDROXY Please continue on yout Vitamin D 5000 international units once daily with meals and your multivitamin - You are on Humira and sulfasalazine for your Ulcerative Colitis. These are also treating your Rheumatoid Arthritis. During infections you will need to hold the Humira and sulfasalazine, but discuss first with your capacity planning engineer. Supplements recommended Vitamin B12: 500 to 1000 [...] the office. This medication is given termite control representative, indefinitely. Prolia should not be discontinued without [...] looked into transition therapy. Recent study from [facility] Slim et al, 04/11/2020, reported [...] atypical and subtroch. fracture of femur with half-way use of bisphosphonates/alendronate and anti-resorptive agents, there [...] which included preparing to see the patient, qcen-vf-ybuh patient care, completing clinical documentation, obtaining and/or [...] the care of your patient. Nidia Ascencio APRN.[facility] Jose L Lackey MD, MD Patient Instructions -PLEASE NOTE THAT WE REVIEW ALL YOUR TEST RESULTS AT YOUR NEXT FOLLOW UP VISIT WITH YOU. IF ANY ABNORMAL LAB REQUIRES SOONER ATTENTION, WE WILL CONTACT YOU. -If you have signed up on Loopd Via, we will release your test results through Loopd Via. I wish you the best of health [...] and sulfasalazine, but discuss first with your capacity planning engineer. Supplements recommended Vitamin B12: 500 to 1000 [...] track your nutrition and calcium intake on www.CrossMedia.myinfoQ This provides macro and micronutrient intake and requirements. - You can track your calcium intake on [facility] or any other calcium tracker of your [...] now for a cost, such as at www.Zigmo. -When eating a whole food plant based [...] track your nutrition and calcium intake on www.Hemophilia Resources of Americaometer.myinfoQ This provides macro and micronutrient intake and [...] that features the Whole Plant Based diet, Kaleva over knives (see video online and visit website). Another movie that was recently released is: Eating You Alive (you can find it at Gritness) and The Game Changers movie Dr. Fauzia Ansari is a [facility] physician who is an expert in Whole Plant based diet. His website is TripleLift. His research highlights the benefits of the Whole food plant based diet in reversing and preventing heart disease. Mrs. Ansari (his ) has a cookbook with many recipes on whole plant based food: The Prevent and Reverse Heart Disease cookbook. You can also consider reading his son, Eze Ansari's book: The Engine 2 cookbook Eze is a retired photo finish photographer who has helped many people get healthier by following the whole food plant based diet. Dr. Rock Velazco, has a website and free angélica to help get started on a whole plant based diet, at www.pcrNiles Media Group.org and you can log on for free for his 21-Day Kickstart with meals and recipes to follow for 21 days. There is also a free angélica for that. He has multiple free videos and YouTube, for example: https://youKaonetics Technologiesu.be/[email or web address] , https://youKaonetics Technologiesu.be/JiGFCoeuc0e He has written multiple books, including Power BitX for the Brain, The Cheese Trap, Dr. Rock Velazco's Program for Reversing Diabetes, Your Body in Balance Dr. Anthony Carlson has shown the benefit of a starch based whole food plant based diet to his Rheumatoid Arthritis patients, as well as patient with diabetes II, hypertension, obesity, multiple sclerosis, heart disease, acne, and other, his website: www.debra.myinfoQ Dr. Yayo Allred is a renowned clinical cytogeneticist scientist, who has studied and researched the benefits of the Whole plant based diet. He has also researched the adverse effects of animal proteins on health. He presents many of his research findings in his book The [place] study. Dr. Gerber Becker has completed many research trials proving the reversal of diseases, such as heart disease and early prostate cancer, with healthy lifestyle and the Whole Plant based diet. Dr. Gerber Becker website is: www.alvaroKuke Musicevelyn.myinfoQ His new book: Undo It, has evidence [...] To Age Dr. Danitza Dash (from the [facility]), has articles on the following website: Tissue Regenix Also, you could find additional information on practical to follow recipes by reading or watching online and YouTube such as: Emergency Detail Driver AJ, Cooking With Plants, The Vegan Corner (recipes from an [place] Emergency Detail Driver), The Whole Foods Plant Based Cooking Show and visiting the provided websites for additional information on the whole plant based benefit and cooking recipes. You can also consider watching the vlogs of some of the plant based Athletes such as Fausto Ewing Derek on VoteIt. Dr. Maryan Holguin (a psychiatrist who suffered [...] - Gentle Yoga Anyone Can Do Anywhere www.[employer].myinfoQ/yoga Also on youtube: yoga with Karlie 3- [...] or a higher dose. Raw: Garlic, Cilantro, [place] nuts, Pumpkin seeds, Cash seeds and Flax seed powder have been reported to help with certain metal detoxification such as mercury. Freeport-3 plant based rich foods are good anti-inflammatory [...] the Whole Plant Based Diet, by watching Kaleva over Ruck.us movie and then review website. There are many other resources and educational information on the Whole plant based diet on the Internet and documentaries. There are other resources for wellness that you can also benefit from, such as the [facility] Wellness website, [facility] and includes Plant based and Mediterranean diet, yoga and meditation. Please avoid all dairy products. You could use non-dairy milk such as Flax milk, Cashew milk, Corea milk, Rice milk, Oat milk or Hemp [...] Osteoporosis Foundation) http://www.osteo.org/osteolinks.asp [facility]: 4-168-843-BONE The Calcium Information [place]: -Non-Dairy, Plant based Milk, can contain in1 glass up to 450 mg of calcium (300 to 450 mg) Exampled include Oat Milk, Flax Milk, Corea Milk, Cashew Milk, Soy Milk, Peas Milk general health and well being Examples of Food Sources of Calcium from NIH Food Milligrams (mg) per serving Percent DV* Soymilk, calcium-fortified, 8 ounces 299 30 Ruby juice, calcium-fortified, 6 ounces 261 26 Tofu, firm, made with calcium sulfate, cup* 253 25 Tofu, soft, made with calcium sulfate, cup* 138 14 Ajwer-hj-xro cereal, calcium-fortified, 1 cup 100-1,000 10-100 Turnip greens, fresh, boiled, cup 99 10 Kale, raw, chopped, 1 cup 100 10 Kale, fresh, cooked, 1 cup 94 9 Nigerien cabbage, bok marin, raw, shredded, 1 cup 74 7 Bread, white, 1 slice 73 7 Tortilla, corn, wzzjs-pa-ropa/marshall, one 6 diameter 46 5 Tortilla, flour, rnkmw-vj-rbdf/marshall, one 6 diameter 32 3 Bread, whole-wheat, [...] could acces this information online at: http://ods.od.nih.gov/factsheets/Calci -[facility] [facility] ClinicProfeatrium [facility]/ Vitamin D: Vitamin D3= cholecalciferol, available over the counter. Dose recommended 800 to 1000 iu daily with a meal; Certain patients require 3605-1878 iu daily and in patients deficient in [...] bones. Studies show approximately 50% of [place] men and women are vitamin D deficient [...] available from: www.nof.org (the national osteoporosis foundation) http://www.el pasoclinic.org/arthrit is/osteo/info.htm http://ods.od.nih.gov/factsheets/vitam ind.asp National Institutes of Health: 8-665-515-BONE The Calcium Information Center: At the [facility], we work as a team for your care, along with Nurse Practitioners, Physician Assistants, Nurses and Medical Assistants. It is a privilege and honor to serve you. Thank you for choosing The [facility] for your healthcare. Sincerely, Nidia Ascencio APRN.ACCOUNTING FILE CLERK PAST MEDICAL HISTORY Diagnosis Date Monoclonal [...] mg subcutaneously every 2 weeks. Prescribed by Route Service Representative : Nel Lebron MD Previously prescr. by [...] in am, 3 noon, 2 pm), per capacity planning engineer No current facility-administered medications for this visit. [...] developed and its performance characteristics determined by [facility] [place] ([facility]). It has not been cleared [...] 147 53 - 334 mg/dL Final MPA [place], Serum Date Value Ref Range Status 08/19/2018 1,020 534 - 1,267 mg/dL Final MPA Lambda, Serum Date Value Ref Range Status 08/19/2018 551 253 - 653 mg/dL Final MPA [place]/Lambda Ratio Date Value Ref Range Status 08/19/2018 [...] , Gender: Male SCANNER INFORMATION: DXA Model: ClickGanic W [id number] SITE SCANNED: Lumbar spine and left hip [...] machine for accurate comparison. FOR MORE INFORMATION: [facility] Center for Osteoporosis and Metabolic Bone Disease: www.ccf.org/arthritis/osteo National Osteoporosis Foundation: www.nof.org International Society of Clinical Densitometry www.iscd.org Agronomy Location Manager: [id number] Transcribe Date/Time: Sep 23 2022 10:28A Dictated by : DARRIAN DUBON MD This examination was interpreted and the report reviewed and electronically signed by: DARRIAN DUBON MD on Sep 28 2022 6:46PM EST documented in this encounter [facility] 09-23-2022 History of Present illness Narrative [...] 2022 9:54 AM documented in this encounter [facility] 02-10-2022 Miscellaneous Notes Pt aware. Estefanía [...] you kindly, fa documented in this encounter [facility] 08-22-2020 History of Present illness Narrative [...] 2020 10:20 AM documented in this encounter [facility] Evaluation note Diagnosis Rheumatoid arthritis involving multiple sites with positive rheumatoid factor (HCC)- Primary Vitamin D deficiency Unspecified vitamin D deficiency Encounter to discuss test results Other specified counseling Encounter for medication review and counseling Other specified counseling Counseling on health promotion and disease prevention Other specified counseling Other osteoporosis without current pathological fracture [facility] Diagnosis Rheumatoid arthritis involving multiple sites with positive rheumatoid factor (HCC)- Primary Encounter to discuss test results Other specified counseling Counseling on health promotion and disease prevention Other specified counseling Ulcerative pancolitis (HCC) [place] ulcerative (chronic) colitis Other osteoporosis without current pathological fracture [facility] Rheumatoid arthritis involving multiple sites with positive rheumatoid factor (HCC)- Primary Encounter to discuss test results Other specified counseling Counseling on health promotion and disease prevention Other specified counseling Ulcerative pancolitis (HCC) [place] ulcerative (chronic) colitis Vitamin D deficiency Unspecified vitamin D deficiency On sulfasalazine therapy Encounter for medication review and counseling Other specified counseling Other osteoporosis without current pathological fracture Elevated serum immunoglobulin free light chain level Other nonspecific findings on examination of blood [facility] Seropositive rheumatoid arthritis (HCC) Rheumatoid arthritis Other osteoporosis without current pathological fracture Chronic pain of left ankle Ankle deformity, left Pes planus, unspecified laterality Other secondary osteoarthritis of multiple sites [facility] Rheumatoid arthritis involving multiple sites with positive rheumatoid factor (HCC) Other osteoporosis without current pathological fracture High risk for hip fracture Other specified conditions influencing health status Vitamin D deficiency, hx Unspecified vitamin D deficiency [facility] Other osteoporosis without current [...] rheumatoid factor (HCC) [facility] Rheumatoid arthritis involving multiple sites with positive rheumatoid factor (HCC)- Primary Vitamin D deficiency Unspecified vitamin D deficiency Other osteoporosis without current pathological fracture Encounter for medication review and counseling Other specified counseling Rheumatoid arthritis involving multiple sites with positive rheumatoid factor (HCC) [facility] Foreign body of left hand, sequela- Primary [facility] Diagnosis Rheumatoid arthritis involving multiple sites with positive rheumatoid factor (HCC)- Primary Vitamin D deficiency Unspecified vitamin D deficiency Other osteoporosis without current pathological fracture [facility] Diagnosis Seropositive rheumatoid arthritis (HCC)- Primary Rheumatoid arthritis Rheumatoid arthritis involving multiple sites with positive rheumatoid factor (HCC) On sulfasalazine therapy Ulcerative pancolitis (HCC) [place] ulcerative (chronic) colitis Other osteoporosis without current pathological fracture History of bisphosphonate therapy Personal history of other drug therapy Counseling on health promotion and disease prevention Other specified counseling [facility] Other osteoporosis without current pathological fracture- Primary [facility] Diagnosis Seropositive rheumatoid arthritis (HCC)- Primary Rheumatoid arthritis Rheumatoid arthritis involving multiple sites with positive rheumatoid factor (HCC) On sulfasalazine therapy Ulcerative pancolitis (HCC) [place] ulcerative (chronic) colitis Other osteoporosis without current pathological fracture History of bisphosphonate therapy Personal history of other drug therapy Encounter to discuss test results Other specified counseling Encounter for medication review and counseling Other specified counseling Counseling on health promotion and disease prevention Other specified counseling [facility] Diagnosis Pain of right hip- Primary Primary osteoarthritis of right hip Arthritis of knee, left History of total hip replacement, right [facility] Pain and swelling of right knee- Primary History of total left knee replacement History of total right knee replacement Pain and swelling of left knee [facility] Diagnosis Seropositive rheumatoid arthritis (HCC) Rheumatoid arthritis Ulcerative pancolitis (HCC) [place] ulcerative (chronic) colitis Other osteoporosis without current pathological fracture History of bisphosphonate therapy Personal history of other drug therapy [facility] Diagnosis Seropositive rheumatoid arthritis (HCC)- Primary Rheumatoid arthritis Rheumatoid arthritis involving multiple sites with positive rheumatoid factor (HCC) On methotrexate therapy On sulfasalazine therapy Ulcerative pancolitis (HCC) [place] ulcerative (chronic) colitis Osteopenia of multiple sites History of osteoporosis Personal history of other musculoskeletal disorders History of bisphosphonate therapy Personal history of other drug therapy Encounter to discuss test results Other specified counseling Encounter for medication review and counseling Other specified counseling Counseling on health promotion and disease prevention Other specified counseling documented in this encounter [facility] for referral (narrative)* Diagnostic Procedure Only (Routine) - Closed Specialty Diagnoses / Procedures Referred By Hanna t Referred To Contact XR IMAGING Diagnoses Rheumatoid arthritis involving multiple sites with positive rheumatoid factor (HCC) Procedures XR HAND GENERAL 3V PA/LAT/OBL BILATERAL RADEX HAND MINIMUM 3 VIEWS Nidia Ascencio, COLOR DIPPER.ACCOUNTING FILE CLERK [address] [facility] [place] [address] [place] [address] Referral ID Status Reason Start Date Expiration Date V isits Requested Visits Authorized [id number] Closed Auto-Generate d Referral 03/14/2024 11/15/2024 1 1 [facility] for referral (narrative)* Diagnostic Procedure Only (Routine) - Closed Specialty Diagnoses / Procedures Referred By Contac t Referred To Contact XR IMAGING Diagnoses Rheumatoid arthritis involving multiple sites with positive rheumatoid factor (HCC) Procedures XR HAND GENERAL 3V PA/LAT/OBL BILATERAL RADEX HAND MINIMUM 3 VIEWS Nidia Ascencio, COLOR DIPPER.ACCOUNTING FILE CLERK [address] [place] [address] [place] [address] Referral ID Status Reason Start Date Expiration Date V isits Requested Visits Authorized [id number] Closed Auto-Generate d Referral 03/14/2024 11/15/2024 1 1 * Diagnostic Procedure Only (Routine) - Pending Review Specialty Diagnoses / Procedures Referred By Contac t Referred To Contact XR IMAGING Diagnoses Rheumatoid arthritis involving multiple sites with positive rheumatoid factor (HCC) Procedures XR HAND GENERAL 3V PA/LAT/OBL BILATERAL RADEX HAND MINIMUM 3 VIEWS Nidia Ascencio, COLOR DIPPER.ACCOUNTING FILE CLERK [address] [place] [address] [place] [address] Referral ID Status Reason Start Date Expiration Date Visits Requested Visits Authorized [id number] Pending Review Auto-Generat ed Referral 04/13/2024 04/13/2025 1 1 [facility] for referral (narrative)* Diagnostic Procedure Only (Routine) - Pending Review Specialty Diagnoses / Procedures Referred By Contac t Referred To Contact XR IMAGING Diagnoses Seropositive rheumatoid arthritis (HCC) Ulcerative pancolitis (HCC) Other osteoporosis without current pathological fracture History of bisphosphonate therapy Procedures DXA-AXIAL SKELETON DXA BONE DENSITY STUDY 1/> SITES AXIAL Darrian Tran MD [address] [place] [address] [place] [address] Referral ID Status Reason Start Date Expiration Date Visits Requested Visits Authorized [id number] Pending Review Auto-Generat ed Referral 11/04/2025 1 1 [facility] for visit Narrative* Diagnostic Procedure Only (Routine) - Closed Specialty Diagnoses / Procedures Referred By Contac t Referred To Contact XR IMAGING Diagnoses Rheumatoid arthritis involving multiple sites with positive rheumatoid factor (HCC) Procedures XR HAND GENERAL 3V PA/LAT/OBL BILATERAL RADEX HAND MINIMUM 3 VIEWS Nidia Ascencio, COLOR DIPPER.ACCOUNTING FILE CLERK [address] [facility] [place] [address] [place] [address] Referral ID Status Reason Start Date Expiration Date V isits Requested Visits Authorized [id number] Closed Auto-Generate d Referral 03/14/2024 11/15/2024 1 1 [facility] for visit Narrative* Diagnostic Procedure Only (Routine) - Closed Specialty Diagnoses / Procedures Referred By Contac t Referred To Contact XR IMAGING Diagnoses Seropositive rheumatoid arthritis (HCC) Ulcerative pancolitis (HCC) Other osteoporosis without current pathological fracture History of bisphosphonate therapy Procedures DXA-AXIAL SKELETON DXA BONE DENSITY STUDY 1/> SITES AXIAL Darrian Tran MD [address] [place] [address] Phone: tel: fax: [place] [address] Referral ID Status Reason Start Date Expiration Date V isits Requested Visits Authorized [id number] Closed Auto-Generate d Referral 04/25/2025 11/15/2025 1 1 [facility] Advance Directives No Advanced Directives Records [...] phosphatase level Procedures CONSULT TO HEPATOLOGY OFFICE/OUTPATIENT [facility] 60 MINUTES Nidia Ascencio, COLOR DIPPER.ACCOUNTING FILE CLERK [address] [place] [address] Referral ID Status Reason Start Date Expiration Date Visits Requested Visits Authorized [id number] Authorized PCP Requested Referral 02/11/2024 02/10/2025 1 1 Specialty Diagnoses / Procedures Referred By Contac t Referred To Contact Orthopedics Diagnoses Foreign body of left hand, sequela Procedures CONSULT TO ORTHOPAEDICS OFFICE/OUTPATIENT [facility] 60 MINUTES Nidia Ascencio, COLOR DIPPER.ACCOUNTING FILE CLERK [address] [place] [address] Referral ID Status Reason Start Date Expiration Date Visits Requested Visits Authorized [id number] Authorized PCP Requested Referral 04/11/2024 04/11/2025 1 [...] section and content) DATE CREATED AUTHOR 11/30/2021 [facility] DATE CREATED AUTHOR AUTHOR'S ORGANIZ ATION 02/20/2023 [facility] DATE CREATED AUTHOR AUTHOR'S ORGANIZ ATION 06/09/2024 [facility] DATE CREATED AUTHOR AUTHOR'S ORGANIZ ATION 12/16/2024 [facility] DATE CREATED AUTHOR AUTHOR'S ORGANIZ ATION 12/17/2024 [facility] DATE CREATED AUTHOR AUTHOR'S ORGANIZ ATION 05/08/2025 [facility] DATE CREATED AUTHOR AUTHOR'S ORGANIZ ATION 05/18/2025 [facility] DATE CREATED AUTHOR AUTHOR'S ORGANIZ ATION 06/10/2025 [facility] DATE CREATED AUTHOR AUTHOR'S ORGANIZ ATION 06/13/2025 [facility] DATE CREATED AUTHOR AUTHOR'S ORGANIZ ATION 06/16/2025 [facility] DATE CREATED AUTHOR AUTHOR'S ORGANIZ ATION 06/23/2025 [facility] DATE CREATED AUTHOR AUTHOR'S ORGANIZ ATION 06/29/2025 [facility] Source Comments (unrecognize d section and content) In the event this informatio n is protected by the Federal Confidentiality of Alcohol and Drug Abuse Patient Records regulations: The Federal rules restrict any use of the information to criminally investigate or prosecute any alcohol or drug abuse patient.[facility] the event this information is protected by the Federal Confidentiality of Alcohol and Drug Abuse Patient Records regulations: The Federal rules restrict any use of the information to criminally investigate or prosecute any alcohol or drug abuse patient.[facility] Center[facility] the event this information is protected by the Federal Confidentiality of Alcohol and Drug Abuse Patient Records regulations: The Federal rules restrict any use of the information to criminally investigate or prosecute any alcohol or drug abuse patient.[facility] Center[facility] the event this information is protected by the Federal Confidentiality of Alcohol and Drug Abuse Patient Records regulations: The Federal rules restrict any use of the information to criminally investigate or prosecute any alcohol or drug abuse patient.[facility] Center[facility] the event this information is protected by the Federal Confidentiality of Alcohol and Drug Abuse Patient Records regulations: The Federal rules restrict any use of the information to criminally investigate or prosecute any alcohol or drug abuse patient.[facility] Center[facility] the event this information is protected by the Federal Confidentiality of Alcohol and Drug Abuse Patient Records regulations: The Federal rules restrict any use of the information to criminally investigate or prosecute any alcohol or drug abuse patient.[facility] Center[facility] the event this information is protected by the Federal Confidentiality of Alcohol and Drug Abuse Patient Records regulations: The Federal rules restrict any use of the information to criminally investigate or prosecute any alcohol or drug abuse patient.[facility] Center[facility] the event this information is protected by the Federal Confidentiality of Alcohol and Drug Abuse Patient Records regulations: The Federal rules restrict any use of the information to criminally investigate or prosecute any alcohol or drug abuse patient.[facility] Center[facility] the event this information is protected by the Federal Confidentiality of Alcohol and Drug Abuse Patient Records regulations: The Federal rules restrict any use of the information to criminally investigate or prosecute any alcohol or drug abuse patient.[facility] Center[facility] the event this information is protected by the Federal Confidentiality of Alcohol and Drug Abuse Patient Records regulations: The Federal rules restrict any use of the information to criminally investigate or prosecute any alcohol or drug abuse patient.[facility] CenterIn the event this information is protected by the Federal Confidentiality of Alcohol and Drug Abuse Patient Records regulations: The Federal rules restrict any use of the information to criminally investigate or prosecute any alcohol or drug abuse patient.[facility] CenterIn the event this information is protected by the Federal Confidentiality of Alcohol and Drug Abuse Patient Records regulations: The Federal rules restrict any use of the information to criminally investigate or prosecute any alcohol or drug abuse patient.[facility] CenterIn the event this information is protected by the Federal Confidentiality of Alcohol and Drug Abuse Patient Records regulations: The Federal rules restrict any use of the information to criminally investigate or prosecute any alcohol or drug abuse patient.[facility] Center[facility] the event this information is protected by the Federal Confidentiality of Alcohol and Drug Abuse Patient Records regulations: The Federal rules restrict any use of the information to criminally investigate or prosecute any alcohol or drug abuse patient.[facility] Center[facility] the event this information is protected by the Federal Confidentiality of Alcohol and Drug Abuse Patient Records regulations: The Federal rules restrict any use of the information to criminally investigate or prosecute any alcohol or drug abuse patient.[facility] CenterIn the event this information is protected by the Federal Confidentiality of Alcohol and Drug Abuse Patient Records regulations: The Federal rules restrict any use of the information to criminally investigate or prosecute any alcohol or drug abuse patient.[facility] CenterIn the event this information is protected by the Federal Confidentiality of Alcohol and Drug Abuse Patient Records regulations: The Federal rules restrict any use of the information to criminally investigate or prosecute any alcohol or drug abuse patient.[facility] CenterIn the event this information is protected by the Federal Confidentiality of Alcohol and Drug Abuse Patient Records regulations: The Federal rules restrict any use of the information to criminally investigate or prosecute any alcohol or drug abuse patient.[facility] CenterIn the event this information is protected by the Federal Confidentiality of Alcohol and Drug Abuse Patient Records regulations: The Federal rules restrict any use of the information to criminally investigate or prosecute any alcohol or drug abuse patient.[facility] CenterIn the event this information is protected by the Federal Confidentiality of Alcohol and Drug Abuse Patient Records regulations: The Federal rules restrict any use of the information to criminally investigate or prosecute any alcohol or drug abuse patient.[facility] CenterIn the event this information is protected by the Federal Confidentiality of Alcohol and Drug Abuse Patient Records regulations: The Federal rules restrict any use of the information to criminally investigate or prosecute any alcohol or drug abuse patient.[facility] Reason for Visit (unrecogniz ed section [...] INJECTION, ZOLEDRONIC ACID, 1 MG Nidia Ascencio, COLOR DIPPER.ACCOUNTING FILE CLERK [address] [place] [address] Rhe[facility] Infusion [facility] [address] [address] Referral ID Status Reason Start Date Expiration Date V isits Requested Visits Authorized [id number] Authorized 04/12/2024 04/12/2025 1 1 Reason Comments Pain Reason Comments Follow-up Care Teams (unrecognized sec tion and content) Underliner Relationship Specialty Start Date End Date Jose L Lackey MD PCP - General Family Practice 01/18/14 Underliner Relationship Specialty Start Date End Date Jose L Lackey MD PCP - General Family Medicine 01/18/14 Underliner Relationship Specialty Start Date End Date Jose L Lackey MD PCP - General Family Medicine 01/18/14 Underliner Relationship Specialty Start Date End Date Jose L Lackey MD PCP - General Family Medicine 01/18/14 Underliner Relationship Specialty Start Date End Date Jose L Lackey MD PCP - General Family Medicine 01/18/14 Underliner Relationship Specialty Start Date End Date Jose L Lackey MD PCP - General Family Medicine 01/18/14 Underliner Relationship Specialty Start Date End Date Jose L Lackey MD PCP - General Family Medicine 01/18/14 Underliner Relationship Specialty Start Date End Date Jose L Lackey MD PCP - General Family Medicine 01/18/14 Underliner Relationship Specialty Start Date End Date Jose L Lackey MD PCP - General Family Medicine 01/18/14 Underliner Relationship Specialty Start Date End Date Jose L Lackey MD PCP - General Family Medicine 01/18/14 Underliner Relationship Specialty Start Date End Date Jose L Lackey MD PCP - General Family Medicine 01/18/14 Underliner Relationship Specialty Start Date End Date JoseL Lackey MD PCP - General Family Medicine 01/18/14 Underliner Relationship Specialty Start Date End Date Jose L Lackey MD PCP - General Family Medicine 01/18/14 Underliner Relationship Specialty Start Date End Date Jose L Lackey MD PCP - General Family Medicine 01/18/14 Underliner Relationship Specialty Start Date End Date Jose L Lackey MD PCP - General Family Medicine 01/18/14 Underliner Relationship Specialty Start Date End Date Jose L Lackey MD PCP - General Family Medicine 04/21/23 Underliner Relationship Specialty Start Date End Date Jose L Lackey MD PCP - General Family Medicine 04/21/23 Underliner Relationship Specialty Start Date End Date Jose L Lackey MD PCP - General Family Medicine 04/21/23 Underliner Relationship Specialty Start Date End Date Jose L Lackey MD PCP - [facility] Family Medicine 04/21/23 Underliner Relationship Specialty Start Date End Date Jose L Lackey MD PCP - [facility] 01/18/14 Underliner Relationship Specialty Start Date End Date Jose L Lackey MD PCP - [facility] 01/18/14 FOR RECORDS PERTAINING TO PATIENTS WHO [...] BE BASED ON THE PRIMARY CLINICAL RECORDS. [facility], [facility]. provides no warranty or guarantee of the accuracy or completeness of information in this document.
[2025-07-27 09:49] LABS: Anion Gap 11.5; Blood Urea Nitrogen 10.0 mg/dL (7.0-18.0); Calcium 8.7 mg/dL (8.5-10.1); Carbon Dioxide 28.2 mmol/L (21.0-32.0); Chloride 107 mmol/L (98-107); Estimated GFR (African America >60 (>=60 mL/min/1.73m^2); Estimated GFR (Non-African Ame >60 (>=60 mL/min/1.73m^2); Glucose 148 mg/dL (74-106); Potassium 3.7 mmol/L (3.5-5.1); Sodium 143 mmol/L (136-145)
== END 2025-07-27 09:19 | disposition home or self-care (01) ==
LOC: LAB 09:19
PROVIDERS: PCP Family Medicine; Visit Provider Family Medicine
DX: E87.6 Hypokalemia (principal)
CPT/HCPCS: 36415; 80048

== ENCOUNTER 2025-08-16 08:57 | Outpatient (OUT) | payer OTHER, SELFPAY ==
--- OUTSIDE RECORDS SUMMARY | 2025-06-21 09:38 | XMS_ITS ---
Author Name Auto Generated Organization OHIP Care Team Providers Care Special Tax Auditor Name Role Phone DARRIAN DUBON Attending Unavailable JOSE L LACKEY Primary Care Unavailable DARRIAN DUBON Attending Unavailable DARRIAN DUBON Referring Unavailable JOSE L LACKEY Primary Care Unavailable DARRIAN DUBON Referring Unavailable JOSE L LACKEY Primary Care Unavailable DARRIAN DUBON Referring Unavailable JOSE L LACKEY Primary Care Unavailable DARRIAN DUBON Attending Unavailable JOSE L LACKEY Primary Care Unavailable Luis Antonio Garcíaal Attending Unavaila ble Luis Antonio García Talal Attending Unavaila ble Luis Antonio García Talal Attending Unavaila ble Luis Antonio García Talramos Attending Unavaila Jose L Correa Primary Care Unavailable Marcin RAMÍREZ Attending Unavailable Jose L Lackey Referring Unavailable Luis Antonio García Talal Attending Unavaila ble Luis Antonio García Talal Admitting Unavaila Marcin Licea Admitting Unavailable Marcin RMAÍREZ Attending Unavailable Luis Antonio García Talal Admitting Unavaila ble SarminiLuis Antonio Talal Attending Unavaila ble SarminiLuis Antonio Talal Admitting Unavaila ble FredominLuis Antonio tejada Talal Attending Unavaila Marcin Licea Admitting Unavailable Marcin RAMÍREZ Attending Unavailable Luis Antonio García Talal Referring Unavaila ble SarminiLuis Antonio Talal Admitting Unavaila ble SarminiLuis Antonio Talal Attending Unavaila ble Luis Antonio García Talal Referring Unavaila ble Sarmini, Salmon Talal Admitting Unavaila ble Sarmini, Luis Antonio Talal Attending Unavaila ble Sarmini, Luis Antonio Talal Attending Unavaila ble Ricky, Luis Antonio Talal Attending Unavaila ble JR. EVERETT, BRADLY Watters Attending Unavaila ble JR. EVERETT, BRADLY Watters Referring Unavaila ble JR. EVERETT, BRADLY Watters Attending Unavaila ble JR. EVERETT, BRADLY Watters Referring Unavaila ble JR. 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 (HCC) / M05.79(ICD-10) DARRIAN DUBON Active [facility] 06/06/2025 Active Seropositive rhe umatoid arthritis (HCC) / M05.9(ICD-10) DARRIAN DUBON Active [facility] 06/06/2025 Active On methotrexate therapy / Z79.631(ICD-10) DARRIAN DUBON Active [facility] 06/06/2025 Active On sulfasalazine therapy / Z79.899(ICD-10) DARRIAN DUBON Active [facility] 06/06/2025 Active Osteopenia of mu ltiple sites / M85.89(ICD-10) DARRIAN DUBON Active [facility] 06/06/2025 Active History of osteo porosis / Z87.39(ICD-10) DARRIAN DUBON Active [facility] 06/06/2025 Active History of bisphosphonate therapy / Z92.29(ICD-10) DARRIAN DUBON Active [facility] 10/19/2018 Active Other osteoporos is without current pathological fracture / M81.8(ICD-10) NA Active [facility] PROCEDURES No Procedure Records Found RESULTS REMINDERS Observed: 06/27/2025 3:51 PM Status: C Source: [facility] Reminders From: Evelin Enriquez To: Jossie Roberts; Evelin Enriquez; Sent: 06/27/2025 15:51:50 EDT Show up: 08/21/2025 15:51:00 EDT Subject: EGD & Colon Due Date/Time: 09/18/2025 15:51:00 EST Reminder/Recall Per Dr. Ricky caro call pt in august to schedule push and colonscopy in [facility] use peds scope (clear cap for both) Patient would like to push procedures back to December. Call to schedule in November. Labs are being watched monthly by PCP. AMBULATORY VISIT SUMMARY Observed: 06/21 9:38 AM Status: F Source: [facility] Ambulatory Visit Summary ARNULFOJAM SCHUSTER Angel :1965 Visit Date:06/21/2025 Ambulatory Visit Instructions Your Diagnosis [place] ulcerative colitis History of colon polyps Elevated alkaline phosphatase level Anemia Your Care Team Attending Physician - Luis [...] mg Tab) methotrexate (methotrexate 2.5 mg Tab) metoclopramide (Reglan 10 mg Tab) multivitamin with minerals (Multivitamins and Minerals) omeprazole (omeprazole 40 mg Ignacio-) sulfasalazine vedolizumab (Entyvio Pen 108 mg/0.68 mL subcutaneous solution) Procedures Performed Colonoscopy (05/11/2025), Esophagogastroduodenoscopy (05/11/2025), Colonoscopy (06/03/2024), Esophagogastroduodenoscopy (06/03/2024), Colonoscopy (02/26/2024), Colonoscopy (03/23/2023), Cystoscopy (02/04/2021), Colonoscopy, Procedure on hip, Procedure on knee. Discharge Vitals Heart Rate (Peripheral) 78 Respiratory Rate 16 Blood Pressure 126/86 Height 166 cm Height 65 in Weight 75 kg Weight 165.347 lb BMI 27.22 What to do next Someone Will Contact You Regarding These Appointments [facility] External Ambulatory Referral, Rheumatology, 06/21/25 10:35:00 EDT, [place] ulcerative colitis History of colon polyps Elevated alkaline phosphatase level Anemia Medications What How Much When Instructions Unchanged [...] prescribing physician if questions or concerns Unchanged metoclopramide (Reglan 10 mg Tab) 1 Tablets By Mouth Four times a day (before meals and at bedtime) TAKE 1 TABKET BY MOUTH FOR CAPSULE ENDOSCOPY Contact prescribing physician if questions or concerns [...] PSA (prostate specific antigen) Ulcerative colitis, universal [place] ulcerative colitis Ureteral stone with hydronephrosis Urethral [...] signed up for this yet, please contact [employer] at [phone] to get signed up today. Language Information Language assistance services are available as needed. GASTROENTEROLOGY OFFICE/CLINIC NOTE Obse rved: 06/21/2025 9:38 AM Status: F Source: [facility] Gastroenterology Office/Clin ic Note Chief Complaint follow up to capsule HPI Staff Established patient is a(n) 60 year old male who presents today for a follow up to capsule endoscopy on 06/07/25. Continues Entyvio subq q2 weeks. Serviced through [facility]. Colonoscopy due 04/2026. GI complaints: None. Any blood thinners? no Any GLP-1 agonists? no Labs 06/16/25: White Blood Count: 7.1 Red Blood Count: 3.71 Low Hemoglobin: 11.5 Low Hematocrit: 34.5 Low Mean Corpuscular Volume: 93.0 Mean Corpuscular Hemoglobin: 31.0 Mean Corpuscular HGB Conc: 33.3 Red Cell Distribution Width: 15.0 Platelet Count: 334 Mean Platelet Volume: 8.4 Low Neutrophils Percent Auto: 72.4 Lymphocytes Percent Auto: 20.1 Low Monocytes Percent Auto: 7.0 Eosinophils Percent Auto: 0.0 Low Basophils Percent Auto: 0.4 Immature Granulocytes Pct Auto: 0.1 Neutrophils Absolute Auto: 5.1 Lymphocytes Absolute Auto: 1.4 Monocytes Absolute Auto: 0.5 Eosinophils Absolute Auto: 0.0 Basophils Absolute Auto: 0.0 Immature Granulocytes Abs Auto: 0.01 Iron: 39.0 Low Liver Studies AMA Ab Scr: <20.0 (01/29/25) Hep Bs Ag: Negative (12/14/24) TB: Negative (12/14/24) History of Present Illness Reviewed HPI collected by staff Review of Systems PHQ Score Initial Depression Screen Score: 0 SCORE All systems reviewed, negative; Except for above Physical Exam Vitals & Measurements HR: 78(Peripheral) RR: 16 BP: 126/86 HT: 65 in HT: 166 cm WT: 165.347 lb WT: 75 kg BMI: 27.22 No acute distress Procedure Capsule Endoscopy: Findings: minimal duodenitis with possible minimal oozing at d3-d4 in the duodenum Recommendations: recommend push enteroscopy (with clear cap) to examine duodenum well including papilla Assessment/Plan 1. [place] ulcerative colitis (K51.00: Ulcerative (chronic) pancolitis without complications) Severe [...] next colonoscopy, he prefers to stay at [facility] Colonoscopy 04/2025 showed full remission. Biopsies did not show active inflammation, did show TA from rectal and rectosigmoid colon biopsy, HP from sigmoid polyp He also has RA, was following with Dr. Valente at [place], prescribed sulfasalazine, methotrexate. Currently his PCP is prescribing his medication. Recommended he continue to see rheumatology. He does not want to go back to Dr Valente, will refer to other laboratory apparatus glass grinder at [facility]. We discussed lifestyle modifications including Mediterranean diet and exercise Discussed health maintenance as well including vaccinations, getting his DEXA scan with Dr. Tatum and osteoporosis therapy - Schedule Colonoscopy in September to evaluate. Discussed risks such as bleeding, injury and perforation as well as benefits. Patient agreeable. - Referred to rheumatology at [facility] 2. History of colon polyps (Z86.0100: Personal history of colon polyps, unspecified) 3. Elevated alkaline phosphatase level (R74.8: Abnormal levels of other serum enzymes) Very minimal, no concern for PSC or PBC at this time 4. Anemia (D64.9: Anemia, unspecified) He reports he has had iron infusions and oral iron. Denies blood in stools He has had some black stools but not tarry Taking Meloxicam, discussed how this could be contributing Capsule endoscopy 06/07/25: minimal duodenitis with possible minimal oozing at d3-d4 in the duodenum. Recommendations: recommend push enteroscopy (with clear cap) to examine duodenum well including papilla Labs 06/16/25: Hemoglobin: 11.5, Iron: 39.0 - Stop Meloxicam - Schedule Push enteroscopy in September to evaluate. Discussed risks such as bleeding, injury and perforation as well as benefits. Patient agreeable. IJeannine, personally scribed for Luis Antonio García on 06/21/2025 10:14:57. . Follow-up No qualifying data available Problem List/Past Medical History Ongoing Acute diarrhea [...] PSA (prostate specific antigen) Ulcerative colitis, universal [place] ulcerative colitis Ureteral stone with hydronephrosis Urethral stone Historical Extreme obesity Ulcerative colitis Procedure/Surgical History Colonoscopy (05/11/2025), Esophagogastroduodenoscopy (05/11/2025), Colonoscopy (06/03/2024), Esophagogastroduodenoscopy (06/03/2024), Colonoscopy (02/26/2024), Colonoscopy (03/23/2023), Cystoscopy (02/04/2021), Colonoscopy, Procedure on hip, Procedure on knee. Medications atorvastatin 20 mg Tab, 20 mg= [...] No Known Allergies No Known Medication Allergies Social History Alcohol - Denies Alcohol Use, 07/06/2019 Never., 11/21/2024 Exercise - Occasional exercise, 08/23/2019 Other Caffiene- Coffee 1 cup daily, 08/23/2019 Substance Abuse - Denies Substance Abuse, 07/06/2019 Never., 11/21/2024 Tobacco - Denies Tobacco Use, 07/06/2019 Former smoker, quit more than 30 days ago Tobacco Use:. Never Smokeless Tobacco Use:. Cigarettes, 06/21/2025 Former smoker, quit more than 30 days ago Tobacco Use:., 11/21/2024 Former smoker, quit more than 30 days ago Tobacco Use:. Never Smokeless Tobacco Use:. Yes, 03/04/2024 Former smoker, quit more than 30 days ago Tobacco Use:. Never Smokeless Tobacco Use:., 07/23/2022 Family History Arthritis: Brother. Asthma: Mother. Heart disease: Mother. High cholesterol: Mother. Hypertension: Mother. Stroke: Father. Immunizations Vaccine Date Status Comments influenza virus vaccine, inactivated 08/2022 Recorded influenza virus vaccine, inactivated - Not Given Patient Refuses zoster vaccine, inactivated 06/09/2022 Recorded zoster vaccine, inactivated 03/17/2022 Recorded influenza virus vaccine, inactivated - Not Given Patient Refuses SARS-CoV-2 (COVID-19) Ad26 vaccine 03/18/2021 Recorded 2022-07-22: TPV50 SARS-CoV-2 (COVID-19) mRNA-1279 vaccine 03/2021 Recorded Josi influenza virus vaccine, [...] Recorded hepatitis A-hepatitis B vaccine 05/03/2015 Recorded Result Comment: Electronical ly Signed By: Jeannine Santizo MA\.br\Date and Time Signed: 06/21/25 10:40 EDT\.br\Electronically Co-Signed By: Ricky ROBLERO, Luis Antonio Tiwari\.br\Date and Time Co-Signed: 06/22/25 11:13 EDT NURSE CONSULTATION NOTE Observed: 2024 7:57 AM Status: F Source: [facility] Nurse Consultation Note Assessment/Plan patient tolerated real capsule endo, she [...] TPV50 SARS-CoV-2 (COVID-19) mRNA-1273 vaccine 03/2021 Recorded Travis mello Joseph influenza virus vaccine, inactivated 09/27/2020 Recorded influenza [...] Recorded hepatitis A-hepatitis B vaccine 05/03/2015 Recorded PROGRESS Observed: 06/06/2025 8:30 AM Status: COMPLETED Source: [facility] ID: [id number] Author: DARRIAN DUBON MD Service: ? Author Type: Physician Type: Progress Notes Filed: 06/07/2025 15:19 Note Text: FOLLOW UP VISIT Patient's Name: Jam [facility]win [facility] [id number] PCP: Jose L Lackey MD [address] [place] [id number] Consult Requested by: Jose L Lackey MD [address] [place] [id number] Other physicians: Blender Laborer prevBrittney Lebron MD (his prev. shearing shed hand left- Ronald Brown MD) ; Now following with Dr. Luis Antonio García Accompanied by: self Interim history: is here for f/u RA and OP Recording using ambient AI software for draft documentation of the visit was discussed with the patient/authorized pharmaceutical service representative; all questions welcomed and answered. Patient/authorized pharmaceutical service representative agreed to proceed Reports doing fine today, but this would be his last apt. 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 He has also been seeking local laboratory apparatus glass grinder closer to home for him. This is [...] He is still undergoing evaluation by his shearing shed hand for his IBD disease activity. He has been on Entyvio. States he has gastrointestinal evaluation by his shearing shed hand and states - Undergoing capsule endoscopy tomorrow to evaluate small intestine for potential tumors or bleeding. - Recent colonoscopy showed small benign tumors. States told his tumors were benign But still needs the camera States because he is bleeding and requiring His PCP and Blender Laborer are addressing his anemia and further evaluating He had iron infusion 05/26/2025 States he is on potassium and iron infusion by his Primary care physician States his Primary care physician started him on 4 tbs/wk and is comfortable with that He continues on the sulfasalazine, and states his shearing shed hand prescribes it, as well as the Entyvio. [...] BRBPR and denies melena. He follows with Blender Laborer for his UC. [facility] has scopes this summer by his shearing shed hand. He is following with Orthopedics for his osteoarthroses and non-inflammatory joint pains. He has a chronic rotator cuff tear and extensive bilateral glenohumeral degenerative disease. His s/p b/l TKR and rt THR. Hissed rate was elevated at 79 04/2024 at time of his pneumonia. He continues on sulfasalazine and Entyvio by his shearing shed hand. 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 Has been on Humira since Sep 2020 (started with 80 mg loading dose and since has been on 40 mg every 2 wks) He was pleased with Enbrel response to his RA and later was switched to Humira, reports has similar benefit and is pleased with response. His shearing shed hand switched him to Humira for optimal mgt of IBD and he feels this has helped his IBD better. Reports still gets 8 BM's a day, does not have BM at night, does not have to wake up from sleep. Has been following with his shearing shed hand for his UC Had colonoscopy 11/22/2021 with reported marked improvement in asc/transv/desc colon and severe active in rectum, histopath with active colitis with erosions. States Dr. Lebron has started him on rectal enemas. Recent colonoscopy with reported active colitis. He tells me that he continues to have multiple BM's; His shearing shed hand prescribed pred. course, completed recently. No jt [...] us, he is on Humira per his Blender Laborer He is off Enbrel, was switched to Humira by his shearing shed hand. (previously was on Enbrel 25 mg twice a wk and has been in remission since on Enbrel and very pleased with his treatment regimen) He is on Humira 40 mg every 2 wks by his Blender Laborer He is on sulfasalazine, Humira and mesalamine enemas per his shearing shed hand I have reviewed benefits of a whole food plant based diet He consumes dairy, cheese, sausage, hamburger. I have advised him on avoiding meats and dairy and reviewed reports and patient experience with flare of IBD and RA, as well as gastrointestinal dysbiosis. I advised him on a whole foods plant based diet. He has a filler blender (Zapnip XL) and interested in making healthy smoothies [...] in this patient with known rheumatoid arthritis. Urgent Care Technician: CODY Transcribe Date/Time: Feb 20 2021 9:52A [...] felt rt shoulder needed to be stretched. [facility] was working in yard, denies injury. Denies jt pains, outside of the left tip of ankle, states feels the top of the left ankle feels like it's jammed up , feels needs to pull bones apart. [facility] is the site where has fallen arch. Has seen Manager Truck in the remote past for the fallen arch, not recently. Feels gets stiff when not moving as much. Denies any injury or trauma. Denies any pain to me today States his shearing shed hand has prescribed prednisone course due to IBD flare States after scope was told is flared. He is on sulfasalazine and budesonide and his shearing shed hand and since has switched him from Enbrel [...] Alk phos isoenz: liver fraction; followed by shearing shed hand He follows with his shearing shed hand for hi elev alk phos and AST and for bld with stools, Dr Brown: and states he started him on iron supplement States Dr. Brown prescribed metronidazole, for reported diarrhea. [facility] felt it made a difference. [facility] he gave him enemas and told that is for his ulcerative colitis and prescr. sulfasalazine. In 2019, has also followed with his shearing shed hand for blood with stools, and had flex sig and told he was inflamed from his Ulcerative colitis. [facility] had colonosc and EGD in 2018 and was told were good. Told his bld in stools from his UC and patient states notices also mucus when wipes. [facility] had increased his sulfasalazine dose. [facility] also notices that dairy and cheese [...] systems reviewed and are negative DXA Model: 39 Health W [id number] SITE SCANNED: Lumbar spine and left hip [...] were all normal. He follows with his shearing shed hand for his ulcerative colitis and is on sulfasalazine. He was told by his shearing shed hand to avoid sun exposure due to this med, had skin itching last summer. He had evaluation for elevated AST and alk phos. Alk phos has improved and AST has been borderline elevated. I have advised him to f/u with his shearing shed hand for his elevated alk phos (liver fraction) States his shearing shed hand did an US of his liver twice and was told was normal. He denies any alcohol consumption or acetaminophens. His isoenzyme indicated predom. of liver origin. The patient reports that his shearing shed hand completed evaluation and told his liver is fine. His liver US was unremarkable . His anemia has resolved since his UC has been controlled. States saw his shearing shed hand, Dr. Lebron, recently and states told him [...] and denies hematuria or dysuria. DXA Model: 39 Health W [id number] SITE SCANNED: Lumbar spine and left hip [...] states not bad . has seen a laboratory apparatus glass grinder in the past, in [place], Dr. Whitfield. used to be on Remicade [...] 500mg q 6hrs. Reports benefit and his shearing shed hand took him off the iron supplement as his iron was good. [facility] has advised him to avoid all nsaids and recently had discontinued his Celebrex. [facility] has another apt and scheduled for scope next wk Tu. RHEUM. ROS: Joint pain: as above; none currently Joint swelling: as above; none currently Am stiffness: as above; none currently Low back pain: no Dactylitis: no H/o precedent/frequent infection(s): as above Enthesopathy/[place]'s/heel/plantar tenderness: no Skin thickening, psoriasis, photosensitivity, purpura: no Nail changes: no Alpecia, patchy: no; has MPB Eye inflammation: no SICCA: no Oral/nasal/genital ulcers: no GI problems-diarrhea/bleeding/IBD/Gluten intolerence/Dysphagia: as above Raynaud's phenomenon/digital ulcers: no Organ inv-Serositis: no Lung disease/ILD: no Myopathy/proximal muscle weakness: no Abnormal Urine or urethritis: no Renal disease: no CARGO AND RAMP SERVICES MANAGER/PNS disease: no and denies MS HEME-Cytopenias/LAD/Clots: [...] Status: Single denies children 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 Lackey Smoking: quit [...] Abs Lymph 1.00 - 4.00 k/uL 3.02 [place]% 9.7 Abs [place] 0.00 - 0.86 k/uL 0.79 Eosin% 0.0 [...] Negative Negative Ketones, Urine Negative Negative Specific [place], Ur 1.005 - 1.030 1.008 Hemoglobin/Blood,Ur Negative 3+ (A) pH, Urine 4.5 - 8.0 6.0 Protein, Urine Negative mg/dL Negative Urobilinogen Normal Normal Nitrites Negative Negative Leukest Negative Negative Comments SEE COMMENT Urine Adan Comment SEE COMMENT WBC, Urine 0 - 5 /HPF 0-5 RBC, Urine 0 - 3 /HPF >25 (A) Sm Antibody <1.0 AI <0.2 TOP LOADER Antibody <1.0 AI 1.2 (H) SSA Antibody <1.0 AI <0.2 SSB Antibody <1.0 AI <0.2 Centromere Ab <1.0 AI <0.2 Scleroderma Ab, IgG <1.0 AI <0.2 Milagro 1 Antibody <1.0 AI <0.2 Ribosomal TOP LOADER <1.0 AI <0.2 Chromatin Antibody <1.0 AI [...] Arthritis findings and DJD. Latest Ref Rng AND Units 08/22/2020 12/01/2023 01/12/2024 05/23/2025 CBC WBC [...] 1.38 2.11 1.84 1.69 Latest Ref Rng AND Units 08/22/2020 12/01/2023 01/12/2024 05/23/2025 CMP Sodium [...] U/L 135 171 211 Latest Ref Rng AND Units 01/26/2020 08/22/2020 Uric Acid Uric Acid 4.0 - 8.1 mg/dL 6.3 4.4 Latest Ref Rng AND Units 12/01/2023 01/12/2024 ESR, WSR WSR 0 - 15 mm/hr 114 34 Latest Ref Rng AND Units 12/01/2023 01/12/2024 05/23/2025 CRP CRP <0.9 mg/dL 3.9 0.4 3.5 Latest Ref Rng AND Units 08/29/2015 RF and CCP Rheumatoid Factor <20 IU/mL 406 CCP Antibody, IgG <20 Units >250 Latest Ref Rng AND Units 08/29/2015 12/01/2023 Hepatitis Screen Hep B [...] Negative Negative Negative Negative Latest Ref Rng AND Units 08/29/2015 01/26/2020 Antibodies KURT Negative Positive KURT Titer Negative 1:80 KURT Pattern Atypical speckled DNA Antibody w/Confirmation <30 IU/mL <12 Sm Antibody <1.0 AI <0.2 Ribosomal TOP LOADER <1.0 AI <0.2 Chromatin Antibody <1.0 AI <0.2 SSA Antibody <1.0 AI <0.2 SSB Antibody <1.0 AI <0.2 TOP LOADER Antibody <1.0 AI 1.2 Scleroderma Ab, IgG <1.0 AI <0.2 Centromere Ab <1.0 AI <0.2 MILAGRO-1 ANTIBODY, IGG <1.0 AI <0.2 PT Sec 9.7 - 13.0 sec 10.3 PT INR 0.9 - 1.3 1.0 APTT 23.0 - 32.4 sec 25.4 Latest Ref Rng AND Units 08/29/2015 Urinalysis Protein, Urine Negative mg/dL Negative RBC, Urine 0 - 3 /HPF >25 Latest Ref Rng AND Units 08/29/2015 TPMT amd G6PD G6PD Scn [...] FINDINGS CONSISTENT WITH CHRONIC SEVERE RHEUMATOID ARTHRITIS. Urgent Care Technician: [facility] Transcribe Date/Time: Aug 29 2015 12:56P ... Last XR Ankle - Impression Only XR ANKLE GENERAL 3V AP/LAT/OBL LT Exam End: 02/20/2021 8:42 AM (Final result) Impression: IMPRESSION: Arthritic changes demonstrating interval progression in this patient with known rheumatoid arthritis. Urgent Care Technician: PSCB Transcribe Date/Time: Feb 20 2021 9:52A [...] Ta Finn M.D.01/23/2025 9:09 PM [facility] Electronically authenticated by: [id number] Y Date: 01/23/2025 21:09 Dictated By: Ta [...] stenosis. Impression dictated by: Anil Tillman Jr., DIshmael02/03/2025 2:34 PM XR Shoulders: Exam Date: 01/23/2025 [...] its performance characteristics determined by [employer] [facility] Rajeev JBrittney [facility] Pathology [facility] Laboratory Medicine [place] ([facility] It has not been cleared or approved by the FDA. [facility] is regulated under CLIA as qualified to perform high-complexity testing. This test is used for clinical purposes. It should not be regarded as investigational or for research. Testosterone Date Value Ref Range Status 08/19/2018 387 193 - 824 ng/dL Final Comment: A testosterone level in the 193-320 ng/dL range with associated clinical symptoms is considered low and may indicate hypogonadism (from [facility] 2010 363:123-135). Results >320 ng/dL are [...] 147 53 - 334 mg/dL Final MPA [place], Serum Date Value Ref Range Status 08/19/2018 1,020 534 - 1,267 mg/dL Final MPA [place], Serum Date Value Ref Range Status 08/19/2018 551 253 - 653 mg/dL Final MPA [place]/Lambda Ratio Date Value Ref Range Status [...] Wt 75.3 kg (166 lb) BMI 26.81 kg/m? afebrile, VSS General Appearance: WD/WN, NAD. Appropriate [...] in patient's severe chronic Rheumatoid Arthritis. His shearing shed hand has switched him to Humira as he [...] methotrexate well, continues on sulfasalazine by his shearing shed hand He is also on Entyvio by his shearing shed hand. -Osteoporosis DXA August 19, 2018 Lowest T-score [...] to receive intermittent steroid therapy from his shearing shed hand. Pharmacologic therapy is still indicated and recommended, [...] RA included in the risk factors. With mcfp systemic steroids FRAX scores would be higher). [...] Also receives labs per Primary care physician/ Blender Laborer Reviewed his labs Advised on phosph. rich diet -The patient's shearing shed hand follows him for his UC, anemia and liver tests. He is on Entyvio and sulfasalazine per his Blender Laborer RA DMARD therapy: patient would like to [...] DMARDs needs to be adjusted to avoid mcfp use of nsaids and their risk factors and adverse effect. With escalation of treatment for his RA, options include either methotrexate dose increase if labs allow and well tolerated, or he may need to resume his anti-TNF medication (either Enbrel or Humira). With being on methotrexate, folate supplement is recommended. Reports taking folate He is on sulfasalazine per his shearing shed hand and Entyvio for his IBD (He was prev. on Enbrel 25 mg sq twice a week, or may switch to Humira if his shearing shed hand switched him to Humira TNF inhibitor therapy, [...] on sulfasalazine for his IBD per his shearing shed hand RE OP med: Received Reclast infusion, 5 [...] disease. Osteoporosis was likely due to previous mcfp steroid therapy by other physicians over the [...] atypical and subtroch. fracture of femur with mcfp use of bisphosphonates/alendronate and anti-resorptive agents, there [...] wished to proceed. Previous orders -CONSULT TO REGULATORY MANAGER -CONSULT TO PODIATRY Provided referral to OT for assistive devices, exercises to preserve left function Referral to supervisor gas meter repair for foot/ankle deformities and callus care, inserts/braces/orthotics, [...] which included preparing to see the patient, [id number] patient care, completing clinical documentation, obtaining and/or [...] If he is able to find another laboratory apparatus glass grinder closer to home or or if Dr. [...] multiple rheumatologists in this practice here at [place] who are also able to follow him, [...] is continuing his care with his local shearing shed hand. Please see above discussion on recommendations. He will need regular labs for methotrexate and sulfasalazine monitoring. He will need a recheck CRP to ensure has improved Infection precautions are recommended while on immunosuppressive therapy (IMT) Folic acid/folate supplement is recommended while on methotrexate -He relayed you are managing his anemia and his shearing shed hand is completing further evaluation. -His phosphorous was [...] longer prior and after. Please refer to [place] [employer] Guidelines for up to [...] appropriate immunization recommended. -Continued follow up with shearing shed hand for IBD management and monitoring for liver disease, as they deem necessary Thank you for allowing me to participate in the care of your patient. Darrian Fischer MD Jose L Lackey MD [address] [place] [address] We reassured patient that we have been sending letters and copy of my visit note after each of his office visits. They have been faxed to his Primary care physician office Today, I have also asked my medical assistant instructor to mail this visit note and letter to his Primary care physician office mailing address. Medical Decision Making: Problems: Moderate: 2+ stable chronic illnesses Data: Unique source(s) for external note(s) reviewed: 3+ Unique test result(s) reviewed: 3+ Discussed management or test w/ external physician/QHCP/source Medical Decision Making Level: 4 - Moderate CNOV Observed: 06/06/2025 8:20 AM Status: COMPLETED Source: [facility] Office Visit (ANGEL) JAM TOSCANO ([id number]) 1965 M Date Time Provider Department 06/06/25 8:20 AM DARRAIN DUBON During your visit today, we recorded the following information about you: Pulse Blood pressure Weight 66/minute 124/62 75.3 kg Darrian Dubon MD 06/07/2025 3:19 PM Signed FOLLOW UP VISIT Patient's Name: Jam Erwin [place] [id number] PCP: Jose L Lackey MD [address] [place] [id number] Consult Requested by: Jose L Lackey MD [address] [place] [id number] Other physicians: Blender Laborer prev. Nel Lebron MD (his prev. shearing shed hand left- Ronald Brown MD) ; Now following with Dr. Luis Antonio García Accompanied by: self Interim history: is here for f/u RA and OP Recording using ambient Mpax software for draft documentation of the visit was discussed with the patient/authorized pharmaceutical service representative; all questions welcomed and answered. Patient/authorized pharmaceutical service representative agreed to proceed Reports doing fine today, but this would be his last apt. 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 He has also been seeking local laboratory apparatus glass grinder closer to home for him. This is [...] He is still undergoing evaluation by his shearing shed hand for his IBD disease activity. He has been on Entyvio. States he has gastrointestinal evaluation by his shearing shed hand and states - Undergoing capsule endoscopy tomorrow to evaluate small intestine for potential tumors or bleeding. - Recent colonoscopy showed small benign tumors. States told his tumors were benign But still needs the camera States because he is bleeding and requiring His PCP and Blender Laborer are addressing his anemia and further evaluating He had iron infusion 05/26/2025 States he is on potassium and iron infusion by his Primary care physician States his Primary care physician started him on 4 tbs/wk and is comfortable with that He continues on the sulfasalazine, and states his shearing shed hand prescribes it, as well as the Entyvio. [...] BRBPR and denies melena. He follows with Blender Laborer for his UC. States has scopes this summer by his shearing shed hand. He is following with Orthopedics for his osteoarthroses and non-inflammatory joint pains. He has a chronic rotator cuff tear and extensive bilateral glenohumeral degenerative disease. His s/p b/l TKR and rt THR. Hissed rate was elevated at 79 04/2024 at time of his pneumonia. He continues on sulfasalazine and Entyvio by his shearing shed hand. 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 Has been on Humira since Sep 2020 (started with 80 mg loading dose and since has been on 40 mg every 2 wks) He was pleased with Enbrel response to his RA and later was switched to Humira, reports has similar benefit and is pleased with response. His shearing shed hand switched him to Humira for optimal mgt of IBD and he feels this has helped his IBD better. Reports still gets 8 BM's a day, does not have BM at night, does not have to wake up from sleep. Has been following with his shearing shed hand for his UC Had colonoscopy 11/22/2021 with reported marked improvement in asc/transv/desc colon and severe active in rectum, histopath with active colitis with erosions. States Dr. Lebron has started him on rectal enemas. Recent colonoscopy with reported active colitis. He tells me that he continues to have multiple BM's; His shearing shed hand prescribed pred. course, completed recently. No jt [...] us, he is on Humira per his Blender Laborer He is off Enbrel, was switched to Humira by his shearing shed hand. (previously was on Enbrel 25 mg twice a wk and has been in remission since on Enbrel and very pleased with his treatment regimen) He is on Humira 40 mg every 2 wks by his Blender Laborer He is on sulfasalazine, Humira and mesalamine enemas per his shearing shed hand I have reviewed benefits of a whole food plant based diet He consumes dairy, cheese, sausage, hamburger. I have advised him on avoiding meats and dairy and reviewed reports and patient experience with flare of IBD and RA, as well as gastrointestinal dysbiosis. I advised him on a whole foods plant based diet. He has a filler blender (Zapnip XL) and interested in making healthy smoothies and we have discussed at last visit. He has stopped drinking Marfeelter energy drink with water and I advised [...] in this patient with known rheumatoid arthritis. Urgent Care Technician: CODY Transcribe Date/Time: Feb 20 2021 9:52A [...] where has fallen arch. Has seen Manager Truck in the remote past for the fallen arch, not recently. Feels gets stiff when not moving as much. Denies any injury or trauma. Denies any pain to me today States his shearing shed hand has prescribed prednisone course due to IBD flare States after scope was told is flared. He is on sulfasalazine and budesonide and his shearing shed hand and since has switched him from Enbrel [...] Alk phos isoenz: liver fraction; followed by shearing shed hand He follows with his shearing shed hand for hi elev alk phos and AST and for bld with stools, Dr Brown: and states he started him on iron supplement States Dr. Brown prescribed metronidazole, for reported diarrhea. States felt it made a difference. [facility] he gave [facility] enemas and told that is for his ulcerative colitis and prescr. sulfasalazine. In 2018, has also followed with his shearing shed hand for blood with stools, and had flex sig and told he was inflamed from his Ulcerative colitis. [facility] had colonosc and EGD in 2017 and was told were good. Told his bld in stools from his UC and patient states notices also mucus when wipes. [facility] had increased his sulfasalazine dose. [facility] also notices that dairy and cheese caused really bad inflammation from these and has avoided since. [facility] also avoids coffee and consumes green [...] systems reviewed and are negative DXA Model: 39 Health W [id number] SITE SCANNED: Lumbar spine and left hip [...] were all normal. He follows with his shearing shed hand for his ulcerative colitis and is on sulfasalazine. He was told by his shearing shed hand to avoid sun exposure due to this med, had skin itching last summer. He had evaluation for elevated AST and alk phos. Alk phos has improved and AST has been borderline elevated. I have advised him to f/u with his shearing shed hand for his elevated alk phos (liver fraction) States his shearing shed hand did an US of his liver twice and was told was normal. He denies any alcohol consumption or acetaminophens. His isoenzyme indicated predom. of liver origin. The patient reports that his shearing shed hand completed evaluation and told his liver is fine. His liver US was unremarkable . His anemia has resolved since his UC has been controlled. States saw his shearing shed hand, Dr. Lebron, recently and states told him [...] and denies hematuria or dysuria. DXA Model: 39 Health W 375708A SITE SCANNED: Lumbar spine and left hip [...] reports doing well, states not bad . [facility] has seen a laboratory apparatus glass grinder in the past, in [place], Dr. Whitfield. [...] 500mg q 6hrs. 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 Lackey Smoking: quit [...] Abs Lymph 1.00 - 4.00 k/uL 3.02 Cayey% 9.7 Abs [place] 0.00 - 0.86 k/uL 0.79 Eosin% 0.0 [...] Negative Negative Ketones, Urine Negative Negative Specific [place], Ur 1.005 - 1.030 1.008 Hemoglobin/Blood,Ur Negative 3+ (A) pH, Urine 4.5 - 8.0 6.0 Protein, Urine Negative mg/dL Negative Urobilinogen Normal Normal Nitrites Negative Negative Leukest Negative Negative Comments SEE COMMENT Urine Adan Comment SEE COMMENT WBC, Urine 0 - 5 /HPF 0-5 RBC, Urine 0 - 3 /HPF >25 (A) Sm Antibody <1.0 AI <0.2 TOP LOADER Antibody <1.0 AI 1.2 (H) SSA Antibody <1.0 AI <0.2 SSB Antibody <1.0 AI <0.2 Centromere Ab <1.0 AI <0.2 Scleroderma Ab, IgG <1.0 AI <0.2 Milagro 1 Antibody <1.0 AI <0.2 Ribosomal TOP LOADER <1.0 AI <0.2 Chromatin Antibody <1.0 AI [...] Arthritis findings and DJD. Latest Ref Rng AND Units 08/22/2020 12/01/2023 01/12/2024 05/23/2025 CBC WBC [...] 1.38 2.11 1.84 1.69 Latest Ref Rng AND Units 08/22/2020 12/01/2023 01/12/2024 05/23/2025 CMP Sodium [...] U/L 135 171 211 Latest Ref Rng AND Units 01/26/2020 08/22/2020 Uric Acid Uric Acid 4.0 - 8.1 mg/dL 6.3 4.4 Latest Ref Rng AND Units 12/01/2023 01/12/2024 ESR, WSR WSR 0 - 15 mm/hr 114 34 Latest Ref Rng AND Units 12/01/2023 01/12/2024 05/23/2025 CRP CRP <0.9 mg/dL 3.9 0.4 3.5 Latest Ref Rng AND Units 08/29/2015 RF and CCP Rheumatoid Factor <20 IU/mL 406 CCP Antibody, IgG <20 Units >250 Latest Ref Rng AND Units 08/29/2015 12/01/2023 Hepatitis Screen Hep B [...] Negative Negative Negative Negative Latest Ref Rng AND Units 08/29/2015 01/26/2020 Antibodies KURT Negative Positive KURT Titer Negative 1:80 KURT Pattern Atypical speckled DNA Antibody w/Confirmation <30 IU/mL <12 Sm Antibody <1.0 AI <0.2 Ribosomal TOP LOADER <1.0 AI <0.2 Chromatin Antibody <1.0 AI <0.2 SSA Antibody <1.0 AI <0.2 SSB Antibody <1.0 AI <0.2 TOP LOADER Antibody <1.0 AI 1.2 Scleroderma Ab, IgG <1.0 AI <0.2 Centromere Ab <1.0 AI <0.2 MILAGRO-1 ANTIBODY, IGG <1.0 AI <0.2 PT Sec 9.7 - 13.0 sec 10.3 PT INR 0.9 - 1.3 1.0 APTT 23.0 - 32.4 sec 25.4 Latest Ref Rng AND Units 08/29/2015 Urinalysis Protein, Urine Negative mg/dL Negative RBC, Urine 0 - 3 /HPF >25 Latest Ref Rng AND Units 08/29/2015 TPMT amd G6PD G6PD Scn [...] FINDINGS CONSISTENT WITH CHRONIC SEVERE RHEUMATOID ARTHRITIS. Urgent Care Technician: KETTY Transcribe Date/Time: Aug 29 2015 12:56P ... Last XR Ankle - Impression Only XR ANKLE GENERAL 3V AP/LAT/OBL LT Exam End: 02/20/2021 8:42 AM (Final result) Impression: IMPRESSION: Arthritic changes demonstrating interval progression in this patient with known rheumatoid arthritis. Urgent Care Technician: CODY Transcribe Date/Time: Feb 20 2021 9:52A [...] Ta Finn M.D.01/23/2025 9:09 PM Dictation Location: [facility] Electronically authenticated by: [id number] Y Date: 01/23/2025 21:09 Dictated By: Ta [...] its performance characteristics determined by [facility]'s [facility] Pathology and Laboratory Medicine [place] ([facility]). It has not been cleared or approved by the FDA. -[facility] is regulated under CLIA as qualified [...] 147 53 - 334 mg/dL Final MPA [place], Serum Date Value Ref Range Status 08/19/2018 1,020 534 - 1,267 mg/dL Final MPA [place], Serum Date Value Ref Range Status 08/19/2018 551 253 - 653 mg/dL Final MPA [place]/Lambda Ratio Date Value Ref Range Status [...] Wt 75.3 kg (166 lb) BMI 26.81 kg/m? afebrile, VSS General Appearance: WD/WN, NAD. Appropriate [...] Z71.89 Encounter for medication review and counseling Z. Counseling on health promotion and disease [...] in patient's severe chronic Rheumatoid Arthritis. His shearing shed hand has switched him to Humira as he [...] methotrexate well, continues on sulfasalazine by his shearing shed hand He is also on Entyvio by his shearing shed hand. -Osteoporosis DXA August 19, 2018 Lowest T-score [...] to receive intermittent steroid therapy from his shearing shed hand. Pharmacologic therapy is still indicated and recommended, [...] RA included in the risk factors. With exterminator helper systemic steroids FRAX scores would be higher). [...] Also receives labs per Primary care physician/ Blender Laborer Reviewed his labs Advised on phosph. rich diet -The patient's shearing shed hand follows him for his UC, anemia and liver tests. He is on Entyvio and sulfasalazine per his Blender Laborer RA DMARD therapy: patient would like to [...] DMARDs needs to be adjusted to avoid mcfp use of nsaids and their risk factors and adverse effect. With escalation of treatment for his RA, options include either methotrexate dose increase if labs allow and well tolerated, or he may need to resume his anti-TNF medication (either Enbrel or Humira). With being on methotrexate, folate supplement is recommended. Reports taking folate He is on sulfasalazine per his shearing shed hand and Entyvio for his IBD (He was prev. on Enbrel 25 mg sq twice a week, or may switch to Humira if his shearing shed hand switched him to Humira TNF inhibitor therapy, [...] on sulfasalazine for his IBD per his shearing shed hand RE OP med: Received Reclast infusion, 5 [...] disease. Osteoporosis was likely due to previous mcfp steroid therapy by other physicians over the [...] atypical and subtroch. fracture of femur with mcfp use of bisphosphonates/alendronate and anti-resorptive agents, there [...] wished to proceed. Previous orders -CONSULT TO REGULATORY MANAGER -CONSULT TO PODIATRY Provided referral to OT for assistive devices, exercises to preserve left function Referral to supervisor gas meter repair for foot/ankle deformities and callus care, inserts/braces/orthotics, [...] which included preparing to see the patient, [id number] patient care, completing clinical documentation, obtaining and/or [...] If he is able to find another laboratory apparatus glass grinder closer to home or or if Dr. [...] multiple rheumatologists in this practice here at [place] who are also able to follow him, [...] is continuing his care with his local shearing shed hand. Please see above discussion on recommendations. He will need regular labs for methotrexate and sulfasalazine monitoring. He will need a recheck CRP to ensure has improved Infection precautions are recommended while on immunosuppressive therapy (IMT) Folic acid/folate supplement is recommended while on methotrexate -He relayed you are managing his anemia and his shearing shed hand is completing further evaluation. -His phosphorous was [...] longer prior and after. Please refer to [place] [employer] Guidelines for up to [...] appropriate immunization recommended. -Continued follow up with shearing shed hand for IBD management and monitoring for liver disease, as they deem necessary Thank you for allowing me to participate in the care of your patient. Darrian Fischer MD Jose L Lackey MD [facility] [place] [address] We reassured patient that we have been sending letters and copy of my visit note after each of his office visits. They have been faxed to his Primary care physician office Today, I have also asked my medical assistant instructor to mail this visit note and letter to his Primary care physician office mailing address. Medical Decision Making: Problems: Moderate: 2+ stable chronic illnesses Data: Unique source(s) for external note(s) reviewed: 3+ Unique test result(s) reviewed: 3+ Discussed management or test w/ external physician/QHCP/source Medical Decision Making Level: 4 - Moderate Darrian Dubon MD 06/06/2025 8:57 AM Addendum -PLEASE NOTE THAT WE REVIEW ALL YOUR TEST RESULTS AT YOUR NEXT FOLLOW UP VISIT WITH YOU. IF ANY ABNORMAL LAB REQUIRES SOONER ATTENTION, WE WILL CONTACT YOU. -If you have signed up on [address], we will release your test results through [address]. I wish you the best of health [...] discuss your RA. Continue following with your Blender Laborer. Great work on your bone density. You [...] Additional information on methotrexate available at: The [employer] website : [email or web address] and The [facility] website : [email or web address] - Please take your vitamin D with [...] track your nutrition and calcium intake on [email or web address] This provides macro and micronutrient intake and requirements. - You can track your calcium intake on Pixelle or any other calcium tracker of your [...] youtube and copy and paste this link: [email or web address] This is done by a Physical Medicine and Rehab doctor who is a social work professor in [employer]. She completed a PhD at the [employer]. I hope you find it helpful. Please take precautions and start gradual when starting a new exercise program. - I recommend reviewing the exercises from the LIFTMOR study. If you are interested in considering these strength training exercises you will need to work with a Restaurant Area Director or Physical Therapist, as they need to be supervised for safety and to ensure the exercises are performed correctly to avoid injury. This is the reference of the article: For Men: -Jimmie AT, Twin BK, Chetan SL, Shankar BR. The LIFTMOR-M (Lifting Intervention For Training Muscle and Osteoporosis Rehabilitation for Men) trial: protocol for a semirandomised controlled trial of supervised targeted exercise to reduce risk of osteoporotic fracture in older men with low bone mass. BMJ Open. 2017 Apr 27;7(6):z844032. doi: 10.1136/gxlhmmt-2098-101866. PMID: 04940905; PMCID: ABT4776491. -Jimmie AT, Twin BK, Selvin C, Chetan SL, Rosa Maria LJ, Chaparro BR. A Comparison of Bone-Targeted Exercise Strategies to Reduce Fracture Risk in Middle-Aged and Older Men with Osteopenia and Osteoporosis: LIFTMOR-M Semi-Randomized Controlled Trial. J Bone [place] Res. 2020 Jun;35(8):3673-2469. doi: 10.1002/jbmr.4008. Epub 2019Feb 12. PMID: 29732458. Information regarding Whole Body Vibration Plate: You can review this article. Ref: Aparicio RDJ, Aparicio RG, Aparicio LC, Arlene SD, Willam DC, Aníbal M. Effectiveness of whole-body vibration on bone mineral density in postmenopausal women: a systematic review and meta-analysis of randomized controlled trials. Osteoporos Int. 2022;34(1):29-52. doi: 10.1007/m13161-939-99148-k. Epub 2021Sep 09. PMID: 94531321. Their conclusion: ?only high frequency associated with low magnitude and high cumulative dose with low magnitude showed high-quality evidence. At this time, considering the high quality of evidence, it is possible to recommend WBV using high frequency (? 30 Hz), low magnitude (? 0.3 g), and high cumulative dose (? 7000 min) to improve lumbar spine aBMD in postmenopausal women.? - Stress can lead to bone loss. [...] hazelnuts, legumes, soybeans and other beans) - [place] (potatoes, avocados, almonds, peanuts) - Chromium (broccoli, [...] health? Ther Adv Musculoskelet Dis. 2010;3(6):293-300. doi: 10.1177/[id number]. PMID: 83113559; PMCID: [id number]. -SUDHEER Carrillo., NYLA Dodson., GHAZAL Flores. et al. Soy isoflavone intake inhibits bone resorption and stimulates bone formation in menopausal women: meta-analysis of randomized controlled trials. Eur J Clin Nutr 62, 155-161 (2007). https://doi.org/10.1038/sj.ejcn.5125206 -Clyde Rosa, Trisha Lara, Harry De Leon. et al. Isoflavone intervention and its impact on bone mineral density in postmenopausal women: a systematic review and meta-analysis of randomized controlled trials. Osteoporos Int (2022). https://doi.org/10.1007/n57718-315-40564-w -Jack Finch, Trisha Lara, Clyde Grant et al. Effects of isoflavone interventions on bone mineral density in postmenopausal women: a systematic review and meta-analysis of randomized controlled trials. Osteoporos Int 31, 0309-6810 (2020). https://doi.org/10.1007/c25214-895-03424-a - Benefits of consuming soy in whole foods are listed in this article at the [facility] website: https://www.pcr.org/good-nutrition/nutrition-information/vzj-acy-mhueut - Prunes have been reported to help [...] Am J Clin Nutr. 2021 6;116(4):897-910. doi: 10.1093/ajcn/iljc354. PMID: 05169407. -Benefit to bone density and inflammation: Hebert WYMAN, Perrin, Glory HL, Sivakumar ALDANA, Trey CUBA. The Role of Prunes in Modulating Inflammatory Pathways to Improve Bone Health in Postmenopausal Women. Adv Nutr. 2021 2;13(5):3486-3279. doi: 10.1093/advances/pqam234. PMID: 38307946; PMCID: [id number]. - Information on Vitamin K2: more recently [...] with the exception of Natto (a traditional Somali food made from fermented soybeans) has high [...] of these foods, please consult with your Cyber Intelligence Analyst or Physician first. Review of Osteoporosis medications [...] can read more at these [facility] web links: https://my.[facility].org/health/treatments/92737-fnxukyyclykorhh For Fosamax/alendronate: https://my.[facility].org/health/drugs/05208-mtlytqhhvmr-ldsidkq For Actonel/risedronate: https://my.[facility].org/health/drugs/76454-vvxidiaisor-vfhh-ewpwbcz For Reclast/zoledronic acid: https://my.[facility].org/health/drugs/91368-jiekjhapdf-qnat-ovvykucmd-mig- rvm-ziwxbwo-niyvpsdoypsz -Subcutaneous Prolia: this is one injection every 6 months, given by the nurse in the office. This medication is given exterminator helper, indefinitely. Prolia should not be discontinued [...] looked into transition therapy. Recent study from [facility] Slim et al, 04/11/2020 (PMID: 46413743.The study is ongoing, clinicaltrials.gov; [id number]), reported one infusion of IV Reclast did [...] can read more at these [facility] web links: https://my.[facility].org/health/drugs/51437-apmexmefm-uqvmpqnvx Medications that build bone density and prevent [...] can read more at these [facility] web links: For Forteo/teriparatide: https://my.[facility].org/health/drugs/39970-gagyfdeuewdl-rqdlyoucw For Tymlos/abaloparatide: https://Velti.[facility]/health/drugs/38309-toxpaqujapdgl-ihqqptabw Medication that both prevents bone loss and [...] initiated in patients who have had an UT or stroke in the preceding year or those considered high risk. We may need a clearance from a Assayer Helper prior to proceeding with this medication in patients who have a cardiovascular disease history. This is only prescribed for 1 year and then needs to be followed by anti-resorptive therapy, according to recommendations. You can read more at these [facility] web links: For Evenity/romosozumab: https://my.[facility]/health/drugs/64745-ntyrqwqyrjr-hbbjdrvfz Other less potent Osteoporosis medications, such as [...] available medications were provided: Link to the [place] [employer] website at: https://www.rheumatology.org/I-Am-A/Patient-Caregiver/Diseases-Conditions/Osteo- porosis Link to the [facility] web link at: On Osteoporosis: https://my.[facility].org/health/diseases/4443-osteoporosis On Osteopenia: https://my.[facility].org/health/diseases/57728-fshsfqbsqq - Additional information on Bone Health and [...] swallow - They should dissolve easily in ? cup of vinegar in < 15 minutes. [...] Osteoporosis Foundation) http://www.osteo.org/osteolinks.asp National Institutes of Health: 4-207-429-BONE The Calcium Information Center: Non-Dairy, Plant based Milk, can contain in1 glass up to 450 mg of calcium (300 to 450 mg) Exampled include Oat Milk, Flax Milk, Seaman Milk, Cashew Milk, Soy Milk, Peas Milk Examples of Food Sources of Calcium from [facility] Food Milligrams (mg) per serving Percent DV* Soymilk, calcium-fortified, 8 ounces 299 30 Salkum juice, calcium-fortified, 6 ounces 261 26 Tofu, firm, made with calcium sulfate, ? cup* 253 25 Tofu, soft, made with calcium sulfate, ? cup* 138 14 Gwgjz-rc-fkt cereal, calcium-fortified, 1 cup 100-1,000 10-100 Turnip greens, fresh, boiled, ? cup 99 10 Kale, raw, chopped, 1 cup 100 10 Kale, fresh, cooked, 1 cup 94 9 Monegasque cabbage, bok marin, raw, shredded, 1 cup 74 7 Bread, white, 1 slice 73 7 Tortilla, corn, cdbeu-hy-edyk/marshall, one 6? diameter 46 5 Tortilla, flour, uwngh-ml-fbru/marshall, one 6? diameter 32 3 Bread, whole-wheat, 1 slice 30 3 Broccoli, raw, ? cup 21 2 * DV = Daily Value. DVs were developed by the U.S. Food and Drug Administration to help consumers compare the nutrient contents among products within the context of a total daily diet. The U.S. Department of Agriculture?s (USDA?s) Nutrient Database Web site lists the nutrient [...] daily with a meal; Certain patients require 2800-3351 international units daily and in patients deficient [...] bones. Studies show approximately 50% of [place] men and women are vitamin D deficient [...] Additional Information is available from: [facility] Osteoporosis Information: https://my.[facility].org/departments/orthopaedics-rheumatology/depts/oste- oporosis-metabolic The Bone Health and Osteoporosis Foundation (formerly the National Osteoporosis Foundation) : https://www.bonehealthandosteoporosis.org International Osteoporosis Foundation: https://www.osteoporosis.foundation http://ods.od.nih.gov/factsheets/vitamind.asp National Institutes of Health: 0-278-724-BONE The Calcium Information Child[place]: I recommend following a healthy lifestyle. You [...] track your nutrition and calcium intake on www.[employer] Japanometer.MalibuIQ This provides macro and micronutrient intake and [...] that features the Whole Plant Based diet, [place] over knives (see video online and visit website). Another movie that was recently released is: Eating You Alive (you can find it at [employer]) and The Game Changers movie Dr. Fauzia Ansari is a [facility] physician who has done research and published books, is an expert in Whole Plant based diet for prevention and reversal of heart disease. His website is [employer]. His research highlights the benefits of the Whole food plant based diet in reversing and preventing heart disease. Mrs. Gary Mary Annyunior (his ) has a cookbook with many recipes on whole plant based food: The Prevent and Reverse Heart Disease cookbook. Cookie and Yamile Coty have a cooking show on YouTube called: Plant-Based with Yamile Reeseyunior and Cookie Leongдмитрий. You can also consider reading his son, Eze Ansari's book: The Engine 2 cookbook Eze is a retired silk screen printer who has helped many people get healthier by following the whole food plant based diet. Dr. Rock Velazco, has a website and free angélica to help get started on a whole plant based diet, at www.pcrKlixbox Media (T/A).org and you can log on for free for his 21-Day Kickstart with meals and recipes to follow for 21 days. There is also a free angélica for that. He has multiple free videos and YouTube, for example: https://Akamedia.be/[email or web address] , [email or web address].be/AfKBWqnic9f He has written multiple books, including [employer] for the Brain, The Cheese Trap, Dr. Rock Velazco's Program for Reversing Diabetes, Your Body in Balance You can also watch YouTube channel : The Doc AND Parts Classifier Dr. Anthony Carlson has shown the benefit of a starch based whole food plant based diet to his Rheumatoid Arthritis patients, as well as patient with diabetes II, hypertension, obesity, multiple sclerosis, heart disease, acne, and other, his website: www.debra.MalibuIQ Dr. Yayo Allred is a renowned bioinformatics computer scientist, who has studied and researched the benefits of the Whole plant based diet. He has also researched the adverse effects of animal proteins on health. He presents many of his research findings in his book The [place] study. Dr. Gerber Becker has completed many research trials proving the reversal of diseases, such as heart disease and early prostate cancer, with healthy lifestyle and the Whole Plant based diet. Dr. Gerber Becker website is: www.carmenElectro-LuminX.MalibuIQ His new book: Undo It, has evidence based information and guide to following this healthy lifestyle. Dr. Coyd Dillon has dedicated a website and additional time to reviewing all food related articles and research and presents them in his power point presentation and on his website at: nutritionfacts.org which is all free. Dr. Dillon has multiple free videos and YouTube, for example https://youBright.mdu.Likva/aSgNkhgVtks and https://Scholar Rock/lXXXygDRyBU. He has written multiple books including: How Not To and How Not To Diet He is now working on his next book: How Not To Age Dr. Danitza Dash (from the [facility]), has articles on the following website: MemberTender.com For additional ideas on recipes, you could find additional information on practical to follow recipes by reading or watching online and YouTube such as: Parts Classifier AJ, Cooking With Plants, The Vegan Corner (recipes from an Congolese Parts Classifier), The Whole Foods Plant Based Cooking Show and visiting the provided websites for additional information on the whole plant based benefit and cooking recipes. You can also consider watching the vlogs of some of the plant based Athletes such as Fausto Ewing Derek on [employer]. You can find very good recipes for making easy tasty whole plant based foods and for free at the following YouTube channels: - Plant-Based with Yamile Ansari and Cookie Ansrai - The Whole Food Plant Based Cooking Show - Well Your World - Chew on Vegan (is a nurse RN) -The Jaroudi Family - A Plant Based (is a nurse RN) - HealthyVeganEating - Epic Mint Leaves (simple few ingredient meals, quick recipes) - Broccoli Mum - PB with J - Dr. Ignacio Degroot Lifestyle Medicine (is a Assayer Helper and Lifestyle Medicine Physician) -Sometimes it helps to start with a simple diet of potatoes, that Dr. Carlson calls Yarelis Butler. You can learn more about that in his website: www.[employer].MalibuIQ This is the website for Yarelis Butler pdf : https://www.[employer].MalibuIQ/wp-content/uploads//Georgiana-Mini_Website_Print- _Version-1.pdf You can also read more on Dr. Carlson's website - When you goal is to lose weight, it is important to listen to your hunger cues. Don't eat until you are stuffed. As soon as you feel you are no longer hungry, stop eating. There is a Somali saying that says Tammie Grissom [place], meaning eat until you are 80% full. I say avoid eating past 80% of your stomach fullness. This originated from the city of [facility], which is one of the sites reported in the [place] book, one of the highest cities in the world for having the most centenarians. Remember your stomach needs space and capacity for proper digestion of your food. Like a non food receiving clerk or a filler blender, they have a limit for proper function, and should not be filled to the top. You can read more about that from the [facility] article Don?t Eat Until You?re Full ? Instead, Mind Your Tammie [place] , at https://health.[facility].org/szie-iip-yjjfe-jtsot-cyox-fhqujkn-mind-your-- jdaf-uvmzb-ag-point/ Most plants contain proteins and all essential [...] also important to ensure they are 3rd constitution party tested to avoid contaminants. You can [...] you will need to consult with a shearing shed hand to have further evaluation to exclude Celiac [...] - Gentle Yoga Anyone Can Do Anywhere www.InfoDif.MalibuIQ/yoga Also on youtube: yoga with Karlie For women, especially after menopause, strength training is important. You can read more on that from Clare Morley, PhD at her website https://www.LectureTools.MalibuIQ and YouTube videos. If you are a beginner, it is best to start with a physical therapist or interpersonal communications professor. There are also several Aps that offer [...] can find more at the [facility] Website on : https://my.[facility].org/departments/wellness/store/go-well#sleep-tab 4- Stress management, be happy, laugh [...] Timer Meditation Stress Free Now ([facility]). You can find more resources at the [facility] website at : https://my.[facility].org/departments/wellness/store/go-well#hlqxhi-hoxf-j- ab There are many free youtube videos on guided meditation as well For Breathing techniques: You can watch John Carlisle and learn the breathing technique and its benefits by watching the following YouTube: https://Akamedia.be/9Eq9E-REe30?si=-Vjwba8LmmZQWoYS. Learning about your awareness/spiritual being, is very [...] work with a psychotherapist or behavioral health classroom technology coach. When having a psychiatric condition, it [...] or a higher dose. Raw: Garlic, Cilantro, [place] nuts, Pumpkin seeds, [place] seeds and Flax seed powder have been reported to help with certain metal detoxification such as mercury. Victoria-3 plant based rich foods are good anti-inflammatory [...] the Whole Plant Based Diet, by watching [place] over Yovigo movie and then review website. There are many other resources and educational information on the Whole plant based diet on the Internet and documentaries. There are other resources for wellness that you can also benefit from, such as the [facility] Wellness website, [facility].org and includes Plant based and Mediterranean diet, yoga and meditation. Please avoid all dairy products. You could use non-dairy milk such as Flax milk, Cashew milk, Seaman milk, Rice milk, Oat milk or Hemp [...] below, just add the ingredients to your filler blender and blend: - Probably the healthiest smoothie is one that contains mostly green leafy vegetables (especially containing kale), some berries, flax seed and water. This might not stock turner to be sweet. You can add one or two pitted dates or a frozen banana for natural sweetness. Examples of healthy green smoothies, pack your filler blender (at least half way to 01/17) with a mix of green leafy veggies, then top your filler blender with fruits (such as banana or [...] risk for kidney stones. The same with lebanese chards and beet leaves. If you don't [...] health and wellbeing. At the [facility], we work as a team for your care, along with Nurse Practitioners, Physician Assistants, Nurses and Medical Assistants. It is a privilege and honor to serve you. Thank you for choosing The [facility] for your healthcare. Sincerely, Darrian Dubon MD Referring Provider: DARRIAN DUBON [[id number]] Allergies As of Date: 06/06/2025 (No Known Allergies) Date Reviewed: 06/06/2025 Reviewed by: Henrique Cordoba MA - Fully Assessed Reason for Visit: Follow Up [171] Primary Visit Diagnosis:Seropositive rheumatoid arthritis (HCC) [M05.9] Other Visit Diagnoses:Rheumatoid arthritis involving multiple sites with positive rheumatoid factor (HCC) [M05.79] On methotrexate therapy [Z79.631] On sulfasalazine therapy [Z79.899] Ulcerative pancolitis (HCC) [K51.00] Osteopenia of multiple sites [M85.89] History of osteoporosis [Z87.39] History of bisphosphonate therapy [Z92.29] Encounter to discuss test results [Z71.2] Encounter for medication review and counseling [Z71.89] Counseling on health promotion and disease prevention [Z71.89] Prescriptions as of 06/07/2025 - ferrous sulfate 325 mg (65 mg iron) tablet 1 tablet Orally bid for 30 days - potassium chloride SR (MICRO-K) 10 mEq CR capsule 1 tablet with food Orally Twice Daily for 30 days - tiZANidine (ZANAFLEX) 4 mg tablet Take 8 mg by mouth daily at bedtime. - methotrexate 2.5 mg tablet TAKE 4 TABLETS BY MOUTH WEEKLY - ENTYVIO 300 mg injection - sulfaSALAzine EC (AZULFIDINE EN) 500 mg EC tablet TAKE 2 TABLETS BY MOUTH 4 TIMES A DAY - tamsulosin (FLOMAX) 0.4 mg (Discontinued) Take [...] by mouth. Problem List As Of Date 06/06/2025 Noted Resolved Rheumatoid arthritis with positive rheumatoid f*09/12/2015 Vitamin D deficiency [E55.9] 10/05/2015 Encounter for monitoring of etanercept therapy *02/07/2016 Ulcerative pancolitis (HCC) [K51.00] 02/05/2017 Osteoporosis [M81.0] 10/19/2018 Other instructions from your clinician: -PLEASE NOTE THAT WE REVIEW ALL YOUR TEST RESULTS AT YOUR NEXT FOLLOW UP VISIT WITH YOU. IF ANY ABNORMAL LAB REQUIRES SOONER ATTENTION, WE WILL CONTACT YOU. -If you have signed up on [address], we will release your test results through [address]. I wish you the best of health [...] discuss your RA. Continue following with your Blender Laborer. Great work on your bone density. You [...] Additional information on methotrexate available at: The [place] [facility] website : https://www.rheumatology.org/I-Am-A/Patient-Caregiver/Treatments/Methotrexa hr-Crywialstq-Haczvtw and The [facility] website : https://my.[facility].org/health/drugs/18982-qlmnywxkvisq - Please take your vitamin D with [...] track your nutrition and calcium intake on www.Pixelle This provides macro and micronutrient intake and requirements. - You can track your calcium intake on Pixelle or any other calcium tracker of your [...] youtube and copy and paste this link: [email or web address] This is done by a Physical Medicine and Rehab doctor who is a social work professor in [facility] [facility] [employer]. She completed a PhD at the [facility] [employer] [facility]. I hope you find it helpful. Please take precautions and start gradual when starting a new exercise program. - I recommend reviewing the exercises from the LIFTMOR study. If you are interested in considering these strength training exercises you will need to work with a Restaurant Area Director or Physical Therapist, as they need to [...] with low bone mass. BMJ Open. 2016Apr 27;7(6):x744287. doi: 10.1136/dgxvqjl-9813-712440. PMID: 54813229; PMCID: ZVM1557313. -Twin Nick, Selvin Watters, Chetan RENNER, Rosa Maria MONTANO, Shankar WICK. A Comparison of Bone-Targeted Exercise Strategies to Reduce Fracture Risk in Middle-Aged and Older Men with Osteopenia and Osteoporosis: LIFTMOR-M Semi-Randomized Controlled Trial. J Bone [place] Res. 2020 Jun;35(8):7574-1089. doi: 10.1002/jbmr.4008. Epub 2019Feb 12. PMID: 86805216. Information regarding Whole Body Vibration Plate: You can review this article. Ref: Aparicio RDJ, Aparicio RG, Aparicio LC, Arlene SD, Willam DC, Aníbal M. Effectiveness of whole-body vibration on bone mineral density in postmenopausal women: a systematic review and meta-analysis of randomized controlled trials. Osteoporos Int. 2022;34(1):29-52. doi: 10.1007/o93303-671-57782-q. Epub 2021Sep 09. PMID: 75235616. Their conclusion: ?only high frequency associated with low magnitude and high cumulative dose with low magnitude showed high-quality evidence. At this time, considering the high quality of evidence, it is possible to recommend WBV using high frequency (? 30 Hz), low magnitude (? 0.3 g), and high cumulative dose (? 7000 min) to improve lumbar spine aBMD in postmenopausal women.? - Stress can lead to bone loss. [...] hazelnuts, legumes, soybeans and other beans) - [place] (potatoes, avocados, almonds, peanuts) - Chromium (broccoli, [...] health? Ther Adv Musculoskelet Dis. 2010;3(6):293-300. doi: 10.1177/7373637P12983296. PMID: 27245643; PMCID: WGR6035201. -SUDHEER Carrillo., NYLA Dodson., GHAZAL Flores. et al. Soy isoflavone intake inhibits bone resorption and stimulates bone formation in menopausal women: meta-analysis of randomized controlled trials. Eur J Clin Nutr 62, 155-161 (2008). https://doi.org/10.1038/sj.ejcn.4470694 -Clyde Rosa, Trisha Lara, Bar De Leon et al. Isoflavone intervention and its impact on bone mineral density in postmenopausal women: a systematic review and meta-analysis of randomized controlled trials. Osteoporos Int (2022). https://doi.org/10.1007/t42224-951-37586-f -Jack Finch, Trisha Lara, Clyde Grant et al. Effects of isoflavone interventions on bone mineral density in postmenopausal women: a systematic review and meta-analysis of randomized controlled trials. Osteoporos Int 31, 6066-3685 (2020). https://doi.org/10.1007/x67991-270-45199-u - Benefits of consuming soy in whole foods are listed in this article at the PCR website: https://www.pcrm.org/good-nutrition/nutrition-information/hgi-jeg-asdiif - Prunes have been reported to help with bone density and inflammation, and are also beneficial for the gut microbiome and constipation. -The Prune Study article: Perrin, Sivakumar ALDANA, Jordy NI, Edouard H, Flor KJ, Trey C, Ferrheriberto MG, Nakatsu CH, Stewart C. Prunes preserve hip bone mineral density in a 12-month randomized controlled trial in postmenopausal women: the Prune Study. Am J Clin Nutr. 2021 6;116(4):897-910. doi: 10.1093/ajcn/geel862. PMID: 67490700. -Benefit to bone density and inflammation: Hebert WYMAN, Perrin, Glory SOLARES, Sivakumar ALDANA, Trey CUBA. The Role of Prunes in Modulating Inflammatory Pathways to Improve Bone Health in Postmenopausal Women. Adv Nutr. 2021 2;13(5):6050-3447. doi: 10.1093/advances/sost562. PMID: 39555639; PMCID: [id number]. - Information on Vitamin K2: more recently [...] with the exception of Natto (a traditional Somali food made from fermented soybeans) has high [...] of these foods, please consult with your Cyber Intelligence Analyst or Physician first. Review of Osteoporosis medications [...] can read more at these [facility] web links: https://my.[facility].org/health/treatments/65271-bvfmlytbtofvqjy For Fosamax/alendronate: https://Velti.[facility].org/health/drugs/33595-zwueyojzuns-ayesluj For Actonel/risedronate: https://Velti.[facility].org/health/drugs/92294-suultmxghud-xedv-uhhzdpq For Reclast/zoledronic acid: https://Velti.[facility]/health/drugs/74796-fywlckcpkw-lspe-wjfhmxzmf -ngmhdg-pgrjylp-smqaldfapryo -Subcutaneous Prolia: this is one injection every 6 months, given by the nurse in the office. This medication is given exterminator helper, indefinitely. Prolia should not be discontinued [...] looked into transition therapy. Recent study from [facility] Slim et al, 04/11/2020 (PMID: 66415052.The study is ongoing, clinicaltrials.gov; [id number]), reported one infusion of IV Reclast did [...] can read more at these [facility] web links: https://my.[facility]org/health/drugs/35595-tciwdpynm-phdbkxiyz Medications that build bone density and prevent [...] can read more at these [facility] [facility] web links: For Forteo/teriparatide: https://Velti.NutshellMail.org/health/drugs/12215-neqilpdwqpvi-mhwcdpeuf For Tymlos/abaloparatide: https://Datacastle/health/drugs/35770-umrrtinjnxmcl-ehuoktoek Medication that both prevents bone loss and [...] initiated in patients who have had an UT or stroke in the preceding year or those considered high risk. We may need a clearance from a Assayer Helper prior to proceeding with this medication in patients who have a cardiovascular disease history. This is only prescribed for 1 year and then needs to be followed by anti-resorptive therapy, according to recommendations. You can read more at these [facility] web links: For Evenity/romosozumab: https://my.[facility]Smartvue.org/health/drugs/31339-febjviwaxjf-cpysnmsfw Other less potent Osteoporosis medications, such as [...] available medications were provided: Link to the [place] [employer] website at: https://www.rheumatology.org/I-Am-A/Patient-Caregiver/Diseases-Conditions/O steoporosis Link to the [facility] web link at: On Osteoporosis: https://.[facility].org/health/diseases/4443-osteoporosis On Osteopenia: https://my.[facility].org/health/diseases/40650-mdoijfuahe - Additional information on Bone Health and [...] swallow - They should dissolve easily in ? cup of vinegar in < 15 minutes. [...] following resources: www.nof.org (National Osteoporosis Foundation) http://www.osteo.org/osteolinks.asp [place] [facility]: 5-566-765-BONE [facility] Calcium Information Childress: Non-Dairy, Plant based Milk, can contain in1 glass up to 450 mg of calcium (300 to 450 mg) Exampled include Oat Milk, Flax Milk, Seaman Milk, Cashew Milk, Soy Milk, Peas Milk Examples of Food Sources of Calcium from NIH Food Milligrams (mg) per serving Percent DV* Soymilk, calcium-fortified, 8 ounces 299 30 Salkum juice, calcium-fortified, 6 ounces 261 26 Tofu, firm, made with calcium sulfate, ? cup* 253 25 Tofu, soft, made with calcium sulfate, ? cup* 138 14 Fhiqt-gb-gvz cereal, calcium-fortified, 1 cup 100-1,000 10-100 Turnip greens, fresh, boiled, ? cup 99 10 Kale, raw, chopped, 1 cup 100 10 Kale, fresh, cooked, 1 cup 94 9 Monegasque cabbage, EyeGate Pharmaceuticalsk marin, raw, shredded, 1 cup 74 7 Bread, white, 1 slice 73 7 Tortilla, corn, pqrtg-rh-llwf/marshall, one 6? diameter 46 5 Tortilla, flour, hrizz-ms-svjy/marshall, one 6? diameter 32 3 Bread, whole-wheat, 1 slice 30 3 Broccoli, raw, ? cup 21 2 * DV = Daily Value. DVs were developed by the U.S. Food and Drug Administration to help consumers compare the nutrient contents among products within the context of a total daily diet. The U.S. Department of Agriculture?s (USDA?s) Nutrient Database Web site lists the nutrient [...] You could acces this information online at: http://ods..nih.gov/factsheets/Calcium-HealthProfessional/ Vitamin D: Vitamin D3= cholecalciferol, available over the counter. Dose recommended 800 to 1000 international units daily with a meal; Certain patients require 3918-0062 international units daily and in patients deficient [...] bones. Studies show approximately 50% of [place] men and women are vitamin D deficient [...] Additional Information is available from: [facility] Osteoporosis Information: https://my.[facility].org/departments/orthopaedics-rheumatology/depts/ osteoporosis-metabolic The Bone Health and Osteoporosis Foundation (formerly the National Osteoporosis Foundation) : https://www.bonehealthandosteoporosis.org International Osteoporosis Foundation: https://www.osteoporosis.foundation http://ods.od.nih.gov/factsheets/vitamind.asp [place] [facility] of [facility]: 8-083-608-BONE The Calcium Information Childress: I recommend following a healthy lifestyle. You [...] track your nutrition and calcium intake on www.Universal Studios Japanometer.MalibuIQ This provides macro and micronutrient intake and [...] that features the Whole Plant Based diet, [place] over knives (see video online and visit website). Another movie that was recently released is: Eating You Alive (you can find it at [employer]igo [employer]othing) and The Game Changers movie Dr. Fauzia Ansari is a [facility] physician who has done research and published books, is an expert in Whole Plant based diet for prevention and reversal of heart disease. His website is [employer]. His research highlights the benefits of the Whole food plant based diet in reversing and preventing heart disease. Mrs. Cookie Ansari (his ) has a cookbook with many recipes on whole plant based food: The Prevent and Reverse Heart Disease cookbook. Cookie and Yamile Salorobertluisnickie have a cooking show on YouTube called: Plant-Based with Yamile Leongдмитрий and Cookie Leongjuditnickie. You can also consider reading his son, Eze Ansari's book: The Engine 2 cookbook Eze is a retired silk screen printer who has helped many people get healthier [...] multiple free videos and YouTube, for example: https://youBright.mdu.be/kiuOriyZ6g1 , https://youYuDoGlobal.be/YoNLPceft9x He has written multiple books, including Power Food for the Brain, The Cheese Trap, Dr. Rock Velazco's Program for Reversing Diabetes, Your Body in Balance You can also watch YouTube channel : The Doc AND Parts Classifier Dr. Anthony Carlson has shown the benefit of a starch based whole food plant based diet to his Rheumatoid Arthritis patients, as well as patient with diabetes II, hypertension, obesity, multiple sclerosis, heart disease, acne, and other, his website: www.magnoliaProfessionali.ruangel.MalibuIQ Dr. Yayo Allred is a renowned bioinformatics computer scientist, who has studied and researched the benefits of the Whole plant based diet. He has also researched the adverse effects of animal proteins on health. He presents many of his research findings in his book The [place] study. Dr. Gerber Becker has completed many research trials proving the reversal of diseases, such as heart disease and early prostate cancer, with healthy lifestyle and the Whole Plant based diet. Dr. Gerber Becker website is: www.carmenElectro-LuminX.MalibuIQ His new book: Undo It, has evidence based information and guide to following this healthy lifestyle. Dr. Cody Dillon has dedicated a website and additional time to reviewing all food related articles and research and presents them in his power point presentation and on his website at: nutritionfacts.org which is all free. Dr. Dillon has multiple free videos and YouTube, for example https://youBright.mdu.be/aSgNkhgVtks and https://youYuDoGlobal.be/lXXXygDRyBU. He has written multiple books including: How Not To and How Not To Diet He is now working on his next book: How Not To Age Dr. Danitza Dash (from the [facility]), has articles on the following website: Spotistic.MalibuIQ For additional ideas on recipes, you could find additional information on practical to follow recipes by reading or watching online and YouTube such as: Parts Classifier AJ, Cooking With Plants, The Vegan Corner (recipes from an Congolese Parts Classifier), The Whole Foods Plant Based Cooking Show and visiting the provided websites for additional information on the whole plant based benefit and cooking recipes. You can also consider watching the vlogs of some of the plant based Athletes such as Fausto Ewing Derek on [employer]. You can find very good recipes for [...] Dr. Ignacio Degroot Lifestyle Medicine (is a Assayer Helper and Lifestyle Medicine Physician) -Sometimes it helps to start with a simple diet of potatoes, that Dr. Carlson calls Yarelis Butler. You can learn more about that in his website: www.RealtyAPX This is the website for AntoniettaIvanshayla Butler pdf : https://www.RealtyAPX/wp-content/uploads//Georgiana-Carrie_Website_P rint_Version-1.pdf You can also read more on Dr. Carlson's website - When you goal is to lose weight, it is important to listen to your hunger cues. Don't eat until you are stuffed. As soon as you feel you are no longer hungry, stop eating. There is a Somali saying that says Tammie Vega, meaning eat until you are 80% full. I say avoid eating past 80% of your stomach fullness. This originated from the city of [facility], which is one of the sites reported in the BookNow book, one of the highest cities in the world for having the most centenarians. Remember your stomach needs space and capacity for proper digestion of your food. Like a non food receiving clerk or a filler blender, they have a limit for proper function, and should not be filled to the top. You can read more about that from the [facility] article Don?t Eat Until You?re Full ? Instead, Mind Your Tammie [place] , at https://health.[facility].org/wsqe-cql-socrs-faobx-cbzl-lhysawk-mind-y htv-xeoe-aifzg-salvador-point/ Most plants contain proteins and all essential [...] also important to ensure they are 3rd constitution party tested to avoid contaminants. You can track your macros on a nutrition tracker such as cronometer or Inventarium.mobipal and others. Dr. Maryan Holguin (a psychiatrist [...] you will need to consult with a shearing shed hand to have further evaluation to exclude Celiac [...] - Gentle Yoga Anyone Can Do Anywhere www.InfoDif.MalibuIQ/yoga Also on youtube: yoga with Karlie For women, especially after menopause, strength training is important. You can read more on that from Clare Morley, PhD at her website https://www.LectureTools.MalibuIQ and YouTube videos. If you are a beginner, it is best to start with a physical therapist or interpersonal communications professor. There are also several Aps that offer [...] can find more at the [facility] Website on : https://my.[facility].org/departments/wellness/store/go-well#sleep-tab 4- Stress management, be happy, laugh [...] Timer Meditation Stress Free Now ([facility]). You can find more resources at the [facility] website at : https://my.[facility].org/departments/wellness/store/go-well#stress-fr ee-tab There are many free youtube videos on guided meditation as well For Breathing techniques: You can watch John Carlisle and learn the breathing technique and its benefits by watching the following YouTube: https://youBright.mdu.be/4Xw1R-NTk71?si=-Rxxpl5TceAAZoZN. Learning about your awareness/spiritual being, is very [...] work with a psychotherapist or behavioral health classroom technology coach. When having a psychiatric condition, it [...] or a higher dose. Raw: Garlic, Cilantro, [place] nuts, Pumpkin seeds, [place] seeds and Flax seed powder have been reported to help with certain metal detoxification such as mercury. Victoria-3 plant based rich foods are good anti-inflammatory [...] the Whole Plant Based Diet, by watching [place] over Yovigo movie and then review website. There are many other resources and educational information on the Whole plant based diet on the Internet and documentaries. There are other resources for wellness that you can also benefit from, such as the [facility] Wellness website, [facility] and includes Plant based and Mediterranean diet, yoga and meditation. Please avoid all dairy products. You could use non-dairy milk such as Flax milk, Cashew milk, Seaman milk, Rice milk, Oat milk or Hemp [...] below, just add the ingredients to your filler blender and blend: - Probably the healthiest smoothie is one that contains mostly green leafy vegetables (especially containing kale), some berries, flax seed and water. This might not stock turner to be sweet. You can add one or two pitted dates or a frozen banana for natural sweetness. Examples of healthy green smoothies, pack your filler blender (at least half way to 3/) with a mix of green leafy veggies, then top your filler blender with fruits (such as banana or [...] risk for kidney stones. The same with lebanese chards and beet leaves. If you don't [...] health and wellbeing. At the [facility], we work as a team for your care, along with Nurse Practitioners, Physician Assistants, Nurses and Medical Assistants. It is a privilege and honor to serve you. Thank you for choosing The [facility] for your healthcare. Sincerely, Darrian Dubon MD Medications Discontinued During This Encounter Prescriptions - turmeric root extract 500 mg cap (Discontinued) Take 500 mg by mouth once daily. Take one(1) tablet three times daily. - meloxicam (MOBIC) 15 mg tablet (Discontinued) Take 15 mg by mouth once daily. - traMADol (ULTRAM) 50 mg tablet (Discontinued) Take 50 mg by mouth every 6 hours as needed for pain. Level of Service: OFFICE/OUTPATIENT ESTABLISHED MOD MDM 30 MIN [41425] Additional E/M codes: VISIT CPLX INHERENT EANDM ASSOC WITH MED * Disposition: Return for as scheduled 10/2025. Follow-up and Disposition History for Encounter Date Provider Department Center 06/06/2025 [id number] DUBON [place] [facility] Encounter Status:Closed by DARRIAN DUBON on 06/07/25 BD DXA TRABECLR BONE SCORE (TBS) Observed: 06/06/2025 8:13 AM Status: F Source: [facility] * * *Final Report* * * DATE OF EXAM: Jun 06 2025 8:13AM LNB 0801 - BD DXA TRABECLR BONE SCORE (TBS) / PROCEDURE REASON: multiple diagnoses * * * * Physician Interpretation * * * * EXAMINATION: DXA BONE DENSITOMETRY BD DXA - AXIAL SKELETON, BD DXA TRABECULAR BONE SCORE (TBS) PATIENT DEMOGRAPHICS: Age: 60 years, Gender: Male SCANNER INFORMATION: DXA Model: 39 Health [id number] Date Scanned: 06/06/2025 8:13 AM CLINICAL HISTORY: [...] MORE INFORMATION ABOUT DIAGNOSIS AND TREATMENT: [facility] for Osteoporosis and Metabolic Bone Disease:? www.ccf.org/arthritis/osteo National Osteoporosis Foundation:? www.nof.org International Society of Clinical Densitometry www.iscd.org Urgent Care Technician: [id number] Transcribe Date/Time: Jun 06 2025 8:19A Dictated by : DARRIAN DUBON MD This examination was interpreted and the report reviewed and electronically signed by: DARRIAN DUBON MD on Jun 12 2025 5:22PM EST [id number] -2.1 BD DXA - AXIAL SKELETON Observed: 2024 8:13 AM Status: F Source: [facility] * * *Final Report* * * DATE OF EXAM: Jun 06 2025 8:13AM LNB 0804 - BD DXA - AXIAL SKELETON / PROCEDURE REASON: multiple diagnoses * * * * Physician Interpretation * * * * EXAMINATION: DXA BONE DENSITOMETRY BD DXA - AXIAL SKELETON, BD DXA TRABECULAR BONE SCORE (TBS) PATIENT DEMOGRAPHICS: Age: 60 years, Gender: Male SCANNER INFORMATION: DXA Model: 39 Health [id number] Date Scanned: 06/06/2025 8:13 AM CLINICAL HISTORY: [...] MORE INFORMATION ABOUT DIAGNOSIS AND TREATMENT: [facility] for Osteoporosis and Metabolic Bone Disease:? www.ccf.org/arthritis/osteo National Osteoporosis Foundation:? www.nof.org International Society of Clinical Densitometry www.iscd.org Urgent Care Technician: [id number] Transcribe Date/Time: Jun 06 2025 8:19A Dictated by : DARRIAN DUBON MD This examination was interpreted and the report reviewed and electronically signed by: DARRIAN DUBON MD on Jun 12 2025 5:22PM EST [id number] -2.1 REMINDERS Observed: 06/06/2025 7:53 AM Status: F Source: [facility] Reminders From: Tamiko Garcia I To: [facility] - Reminders/Recalls; Sent: 06/06/2025 07:53:34 EDT Show up: 03/16/2026 07:53:00 EDT Subject: Colonoscopy recall Due Date/Time: 05/11/2026 07:53:00 EDT Reminder/Recall 1 year colon recall - Dr. García 05/11/25 PROGRESS Observed: 06/06/2025 7:45 AM Status: COMPLETED Source: [facility] HNO ID: [id number] Author: LAM ROLON RT(Andrez) Service: ? Author Type: Technologist Type: Progress [...] PATIENT PRESENTS WITH AN IMPLANTABLE OR ATTACHED WOOD AND HARDWARE OUTFITTER: No RADIOLOGY DEPARTMENT: Bone Density PERIPHERAL IV DATA: Not applicable SIGNED BY: RT Humza(R) June 06, 2025 8:12 AM NURSE CONSULTATION NOTE Observed: 2024 7:59 AM Status: F Source: [facility] Nurse Consultation Note Assessment/Plan patient tolerated agile capsule and verified [...] Recorded hepatitis A-hepatitis B vaccine 05/03/2015 Recorded COLLAGEN CTX SERPL-MCNC Collected: 05/23/2025 8:03 AM Status: F Source: [facility] Comment: Specimen Type : BLOOD SPECIMEN Ordering Facility: [facility] Address: [address] [place] [address] TYPE CODE TESTS RESULT OUT OF RANGE REFERENCE UNITS LAB CTELOP1 C TELOPEPTIDE, BETA CROSS LINKED 374 132-752 pg/mL Performed By: #### [id number] # ### [facility] CLIA [id number] [address] [place] [address] OF DAVID RENAL FUNC 2000 PNL SERPL Collected: 8:03 AM Status: F Source: [facility] Comment: Specimen Type : BLOOD SPECIMEN Ordering Facility: [facility] Address: [address] [place] [address] TYPE CODE TESTS RESULT OUT OF RANGE REFERENCE UNITS LAB 1751-7(LOINC) Albumin SerPl-mCnc 4.0 3.9-4.9 g/dL LAB 37184-9(LOINC) Calcium SerPl-mCnc 9.5 8.5-10.2 mg/dL LAB 2777-1(LOINC) Phosphate SerPl-mCnc 2.3 Low 2.7-4.8 mg/dL LAB 2345-7(LOINC) Glucose SerPl-mCnc 135 High 74-99 mg/dL Result Comment: The [place] Diabetes Association (ADA) provides guidance for cutoff [...] Standards of Medical Care in Diabetes 2016, [place] Diabetes Association. Diabetes Care. 2016.39(Suppl 1). LAB 3094-0(LOINC) BUN SerPl-mCnc 17 9-24 mg/ dL LAB 2160-0(LOINC) Creat SerPl-mCnc 0.73 0.73-1.22 mg/dL LAB 2951-2(LOINC) Sodium SerPl-sCnc 140 136-144 mmol/L LAB 2823-3(LOINC) Potassium SerPl-sCnc 4.2 3.7-5.1 mmol/L LAB 2075-0(LOINC) Chloride SerPl-sCnc 105 98-107 mmol/L LAB 8-9(LOINC) CO2 SerPl-sCnc 23 22-30 mmo l/L LAB 20717-5(LOINC) Anion Gap SerPl-sCnc 12 8-15 mmol/L LAB 97874-7(LOINC) Creatinine + eGFR Pnl SerPlBld 104 >=60 mL/min/1 .73m??? Result Comment: Estimated Gl omerular Filtration Rate (eGFR) is calculated using the 2020 CKD-EPI creatinine equation. This equation utilizes serum creatinine, sex, and age as parameters. The creatinine assay has traceable calibration to isotope dilution-mass spectrometry. Refer to KDIGO guidelines for clinical interpretation. In patients with unstable renal function, e.g. those with acute kidney injury, the eGFR may not accurately reflect actual GFR. Performed By: #### 89026-6 # ### [facility] CLIA [id number] [address] [place] [address] 25(OH)D3 SERPL-MCNC Collected: 05/23/2025 8:[address] atus: F Source: [facility] Order Comment: Specimen Type : BLOOD SPECIMEN Ordering Facility: [facility] Address: [address] [place] [address] TYPE CODE TESTS RESULT OUT OF RANGE REFERENCE UNITS LAB 1988-(INC) 25(OH)D3 SerPl-mCnc 60.0 31.0-80.0 ng/mL Performed By: #### 1988- ## ## [facility] CLIA [id number] [address] [place] [address] [place] [address] [place] CBC W AUTO DIFF BLD Collected: 05/23/2025 8:[address] atus: F Source: [facility] Order Comment: Specimen Type : BLOOD SPECIMEN Ordering Facility: [facility] Address: [place] [address] TYPE CODE TESTS RESULT OUT OF RANGE REFERENCE UNITS LAB 6690-2([facility]) WBC # Bld Auto 7.96 3.70-11.00 k/uL LAB 789-8([facility]) RBC # Bld Auto 3.86 Low 4.20-6.00 m/ uL LAB 718-7([facility]) Hgb Bld-mCnc 11.6 Low 13.0-17.0 g/dL LAB 4544-3([facility]) Hct VFr Bld Auto 35.9 Low 39.0-51.0 % LAB 787-2([facility]) MCV RBC Auto 93.0 80.0-100.0 fL LAB 785-6([facility]) MCH RBC Qn Auto 30.1 26.0-34.0 p g LAB 786-4([facility]) MCHC RBC Auto-mCnc 32.3 30.5-36.0 g/dL LAB 85065-0([facility]) RDW RBC-Rto 15.0 11.5-15.0 % LAB 777-3([facility]) Platelet # Bld Auto 337 150-400 k/uL LAB 14799-9([facility]) PMV Bld Auto 8.4 Low 9.0-12.7 fL LAB 770-8([facility]) Neutrophils/leuk NFr Bld Auto 69.1 % LAB 751-8([facility]) Neutrophils # Bld Auto 5.50 1.45-7.50 k/uL LAB 736-9([facility]) Lymphocytes/leuk NFr Bld Auto 21.2 % LAB 731-0([facility]) Lymphocytes # Bld Auto 1.69 1.00-4.00 k/uL LAB 5905-5([facility]) Monocytes/leuk NFr Bld Auto 9.2 % LAB 742-7([facility]) Monocytes # Bld Auto 0.73 <0.87 k/uL LAB 713-8([facility]) Eosinophil/leuk NFr Bld Auto 0.0 % LAB 711-2([facility]) Eosinophil # Bld Auto <0.03 <0.46 k/uL LAB 706-2(LOINC) Basophils/leuk NFr Bld Auto 0.4 % LAB 704-7(LOINC) Basophils # Bld Auto 0.03 <0.11 k/uL LAB 52193-9(LOINC) Imm Granulocytes/justo k NFr Bld Auto 0.1 % LAB 48185-7(LOINC) Imm Granulocytes # Bld Auto <0.03 <0.10 k/uL LAB 99088-9(LOINC) nRBC/100 WBC Bld-Rto 0.0 /100 WBC LAB 771-6(LOINC) nRBC # Bld Auto <0.01 <0.01 k/u L LAB 48155-0(LOINC) Differential method Bld Auto Performed By: #### 63154-8 # ### [facility] CLIA [id number] [address] [place] [address] CRP SERPL-MCNC Collected: 05/23/2025 8:03 AM Status: F Source: [facility] Order Comment: Specimen Type : BLOOD SPECIMEN Ordering Facility: [facility] Address: [address] [place] [address] TYPE CODE TESTS RESULT OUT OF RANGE REFERENCE UNITS LAB 1987-([facility]) CRP SerPl-mCnc 3.5 High <0.9 mg/dL Performed By: #### 1988-03 ## ## [facility] CLIA [id number] [address] [place] [address] [place] AMBULATORY VISIT SUMMARY Observed: 05/22 8:15 AM Status: F Source: [facility] Ambulatory Visit Summary JAM TOSCANO :1965 Visit [...] Following Appointments Follow Up with Ricky ROBLERO, SHAZIA Velasco, [facility] When: In 3 months Where: [facility] [place] [address], [address] [address]- [phone] Medications What How Much When Instructions Unchanged [...] PSA (prostate specific antigen) Ulcerative colitis, universal [place] ulcerative colitis Ureteral stone with hydronephrosis Urethral [...] signed up for this yet, please contact [employer] at [phone] to get signed up today. Language Information Language assistance services are available as needed. GASTROENTEROLOGY OFFICE/CLINIC NOTE Obse rved: 05/22/2025 8:15 AM Status: F Source: [facility] Gastroenterology Office/Clin ic Note Chief Complaint follow up to egd/colonoscopy HPI Staff Established patient is a(n) 60 year old male who presents today for a follow up to EGD & Colonoscopy on 05/11/25. Colon recall needs placed. GI complaints: No. Continues Entyvio subq. serviced through [facility]. Any blood thinners? no Any GLP-1 agonists? [...] 90.8 fL (12/14/24) Chloride: 108 mmol/L (12/14/24) Cayey Absolute: 0.5 E9/L (12/14/24) CO2: 27 mmol/L (12/14/24) [place] Auto: 7.5 % (12/14/24) Creatinine: 0.8 mg/dL [...] then switched to sulfasalazine. added Humira in 2018, increased his Humira, did not improve Started [...] next colonoscopy, he prefers to stay at [facility] Colonoscopy 04/2025 showed full remission. 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 Valente at [place], prescribed sulfasalazine, methotrexate. We discussed lifestyle modifications including Mediterranean diet and exercise Discussed health maintenance as well including vaccinations, getting his DEXA scan with Dr. Tatum and osteoporosis therapy 2. History of colon polyps (Z86.0100: Personal history of colon polyps, unspecified) 3. Elevated alkaline phosphatase level (R74.8: Abnormal levels of other serum enzymes) Very minimal, no concern for PSC or PBC at this time 4. Anemia (D64.9: Anemia, unspecified) He reports he has had 2 iron infusions, the oral iron. He has to have another iron infusion soon. Will obtain recent labs Denies blood in stools - Schedule Capsule endoscopy to evaluate I, Jeannine Santizo, personally scribed for Luis Antonio García on 05/22/2025 08:56:06. . Follow-up With When Contact Information Ricky ROBLERO, SHAZIA Velasco, JITENDRA In 3 months [address], [address] [id number] [phone] Additional Instructions: Problem List/Past Medical History Ongoing Acute diarrhea [...] PSA (prostate specific antigen) Ulcerative colitis, universal [place] ulcerative colitis Ureteral stone with hydronephrosis Urethral stone Historical Extreme obesity Ulcerative colitis Procedure/Surgical History Colonoscopy (05/11/2025), Esophagogastroduodenoscopy (05/11/2025), Colonoscopy (06/03/2024), Esophagogastroduodenoscopy (06/03/2024), Colonoscopy (02/26/2024), Colonoscopy (03/23/2023), Cystoscopy (02/04/2021), Colonoscopy, Procedure on hip, Procedure on knee. Medications atorvastatin 20 mg Tab, 20 mg= [...] No Known Allergies No Known Medication Allergies Social History Alcohol - Denies Alcohol Use, 07/06/2019 Never., 11/21/2024 Exercise - Occasional exercise, 08/23/2019 Other Caffiene- Coffee 1 cup daily, 08/23/2019 Substance Abuse - Denies Substance Abuse, 07/06/2019 Never., 11/21/2024 Tobacco - Denies Tobacco Use, 07/06/2019 Former smoker, quit more than 30 days ago Tobacco Use:. Never Smokeless Tobacco Use:. Cigarettes, 05/22/2025 Former smoker, quit more than 30 days ago Tobacco Use:., 11/21/2024 Former smoker, quit more than 30 days ago Tobacco Use:. Never Smokeless Tobacco Use:. Yes, 03/04/2024 Former smoker, quit more than 30 days ago Tobacco Use:. Never Smokeless Tobacco Use:., 07/23/2022 Family History Arthritis: Brother. Asthma: Mother. Heart disease: Mother. High cholesterol: Mother. Hypertension: Mother. Stroke: Father. Immunizations Vaccine Date Status Comments influenza virus [...] Recorded hepatitis A-hepatitis B vaccine 05/03/2015 Recorded Result Comment: Electronical ly Signed By: Jeannine Santizo MA\.br\Date and Time Signed: 05/22/25 09:02 EDT\.br\Electronically Co-Signed By: Luis Antonio García MD\.br\Date and Time Co-Signed: 05/24/25 14:37 EDT PROGRESS NOTE-PHYSICIAN Observed: 2024 12:13 PM Status: F Source: [facility] Progress Note-Physician Patient: JAM TOSCANO Age: 60 years Sex: Male : 1965 Associated Diagnoses: None Author: Kody Ramos Jr., DO Postoperative Information Postoperative disposition: Postoperative disposition: Home. Optimetrix number: Optimetrix number [id number]. Anesthetic utilized: General. Physical Examination Vital Signs [...] Ambulatory Surgery Unit, and To home ). Result Comment: Electronical ly Signed By: Kody Ramos Jr., DO.sania\Date and Time Signed: 05/11/25 12:13 EDT PATIENT EDUCATION - TEXT Observed: 05/11 9:52 AM Status: C Source: [facility] Patient Education - Text Colonoscopy Care After [...] activities are safe for you. ??? Take akvi-xoa-abepavw and prescription medicines only as told by [...] provider. Document Revised: 02/11/2023 Document Reviewed: 02/11/2023 [employer] Patient Education ? 2023 [employer].Peptic Ulcer A peptic ulcer is a sore [...] type of bacteria called Helicobacter pylori or H. pylori. ??? Regular use of NSAIDs, such as ibuprofen or aspirin. ??? Rare tumors in the stomach, small intestine, or pancreas (Jean?Yoder syndrome). What increases the risk? The following factors may make you more likely to develop this condition: ??? Smoking. ??? Having a family history of ulcer disease. ??? Drinking alcohol. ??? Having been hospitalized in an intensive care unit (ICU). What are the signs or symptoms? Symptoms of this condition include: ??? Persistent burning pain in the area between the chest and the belly button. The pain may be worse on an empty stomach and at night. ??? Heartburn. ??? Nausea and vomiting. ??? Bloating. If the ulcer results in bleeding, it can cause: ??? Black, tarry stools. ??? Vomiting of bright red blood. ??? Vomiting of material that looks like coffee grounds. How is this diagnosed? This condition may be diagnosed based on: ??? Your medical history and a physical exam. ??? Various tests or procedures, such as: ? Upper endoscopy. The health care provider examines the esophagus, stomach, and small intestine using a small flexible tube that has a video camera at the end. ? Blood tests, stool tests, or breath tests to check for the H. pylori bacteria. ? An X-ray exam (upper gastrointestinal series) of the esophagus, stomach, and small intestine. ? A biopsy to help find certain causes of ulcers. A tissue sample is removed during upper endoscopy to be examined under a microscope. How is this treated? Treatment for this condition may include: ??? Eliminating the cause of the ulcer, such as smoking or use of NSAIDs, and limiting alcohol and caffeine intake. ??? Medicines to reduce the amount of acid in your digestive tract. ??? Antibiotic medicines, if the ulcer is caused by an H. pylori infection. ??? An upper endoscopy may be used to treat a bleeding ulcer. ??? Surgery. This may be needed if the bleeding is severe or if the ulcer created a hole somewhere in the digestive system. Follow these instructions at home: ??? Do not drink alcohol if your health care provider tells you not to drink. ??? Do not use any products that contain nicotine or tobacco. These products include cigarettes, chewing tobacco, and vaping devices, such as e-cigarettes. If you need help quitting, ask your health care provider. ??? Take cldy-ptj-ocdbjmr and prescription medicines only as told by your health care provider. ? Do not use kivv-vci-siqlwsk medicines in place of prescription medicines unless your health care provider approves. ? Do not take aspirin, ibuprofen, or other NSAIDs unless your health care provider tells you to. ??? Keep all follow-up visits. This is important. Contact a health care provider if: ??? Your symptoms do not improve within 7 days of starting treatment. ??? You have ongoing indigestion or heartburn. Get help right away if: ??? You have sudden, sharp, or persistent pain in your abdomen. ??? You have bloody or dark black, tarry stools. ??? You vomit blood or material that looks like coffee grounds. ??? You become light-headed or you feel faint. ??? You become weak. ??? You become sweaty or clammy. These symptoms may be an emergency. Get help right away. Call 911. ??? Do not wait to see if the symptoms will go away. ??? Do not drive yourself to the hospital. Summary ??? A peptic ulcer is a sore in the lining of the stomach (gastric ulcer) or the first part of the small intestine (duodenal ulcer). The ulcer causes a gradual wearing away (erosion) of the deeper tissue. ??? Do not use any products that contain nicotine or tobacco. These products include cigarettes, chewing tobacco, and vaping devices, such as e-cigarettes. If you need help quitting, ask your health care provider. ??? Take kxtl-dpg-hqqcnzq and prescription medicines only as told by your health care provider. Do not use tyqt-kfx-lgtdhai medicines in place of prescription medicines unless your health care provider approves. ??? Limit your alcohol and caffeine intake. ??? Keep all follow-up visits. This is important. This information is not intended to replace advice given to you by your health care provider. Make sure you discuss any questions you have with your health care provider. Document Revised: 06/13/2022 Document Reviewed: 06/13/2022 [employer] Patient Education ? 2023 [employer].Colitis Colitis is a condition in which the colon is inflamed. It can cause diarrhea, blood in the stool, and abdominal pain. Colitis can last a short time (be acute), or it may last a long time (become chronic). What are the causes? This condition may be caused by: ??? Infections from viruses or bacteria. ??? A reaction to medicine. ??? Certain autoimmune diseases, such as Crohn's disease or ulcerative colitis. ??? Radiation treatment. ??? Decreased blood flow to the bowel (ischemia). What are the signs or symptoms? Symptoms of this condition include: ??? Diarrhea, blood in the stool, or black, tarry stool. ??? Pain in the joints or abdominal pain. ??? Fever or fatigue. ??? Vomiting. ??? Weight loss. ??? Bloating. ??? Having fewer bowel movements than usual. ??? A strong and sudden urge to have a bowel movement. ??? Feeling like the bowel is not empty after a bowel movement. How is this diagnosed? This condition may be diagnosed based on a stool test and a blood test. You may also have other tests, such as: ??? X-rays. ??? CT scan. ??? Colonoscopy. ??? Endoscopy. ??? Biopsy. How is this treated? Treatment for this condition depends on the cause. This condition may be treated with: ??? Steps to rest the bowel, such as not eating or drinking for a period of time. ??? Fluids that are given through an IV. ??? Medicine for pain and diarrhea. ??? Antibiotic medicines. ??? Cortisone medicines. ??? Surgery. Follow these instructions at home: Eating and drinking ??? Follow instructions from your health care provider about eating or drinking restrictions. ??? Drink enough fluid to keep your urine pale yellow. ??? Work with a dietitian to determine whether certain foods cause your condition to flare up. ??? Avoid foods or drinks that cause flare-ups. ??? Eat a well-balanced diet. General instructions ??? If you were prescribed an antibiotic medicine, take it as told by your health care provider. Do not stop taking the antibiotic even if you start to feel better. ??? Take wolv-dbk-xvvhast and prescription medicines only as told by your health care provider. ??? Keep all follow-up visits. This is important. Contact a health care provider if: ??? Your symptoms do not go away. ??? You develop new symptoms. Get help right away if: ??? You have a fever that does not go away with treatment. ??? You develop chills. ??? You have extreme weakness, fainting, or dehydration. ??? You vomit repeatedly. ??? You develop severe pain in your abdomen. ??? You pass bloody or tarry stool. Summary ??? Colitis is a condition in which the colon is inflamed. Colitis can last a short time (be acute), or it may last a long time (become chronic). ??? Treatment for this condition depends on the cause and may include resting the bowel, taking medicines, or having surgery. ??? If you were prescribed an antibiotic medicine, take it as told by your health care provider. Do not stop taking the antibiotic even if you start to feel better. ??? Get help right away if you develop severe pain in your abdomen. ??? Keep all follow-up visits. This is important. This information is not intended to replace advice given to you by your health care provider. Make sure you discuss any questions you have with your health care provider. Document Revised: 07/09/2021 Document Reviewed: 07/09/2021 [employer] Patient Education ? 2023 [employer]Infectious Disease Gastritis, Adult Gastritis is inflammation of the stomach. There are two kinds of gastritis: ??? Acute gastritis. This kind develops suddenly. ??? Chronic gastritis. This kind is much more common. It develops slowly and lasts for a long time. Gastritis happens when the lining of the stomach becomes weak or gets damaged. Without treatment, gastritis can lead to stomach bleeding and ulcers. What are the causes? This condition may be caused by: ??? An infection. ??? Drinking too much alcohol. ??? Certain medicines. These include steroids, antibiotics, and some jqvg-gbp-seixtxx medicines, such as aspirin or ibuprofen. ??? Having too much acid in the stomach. ??? Having a disease of the stomach. Other causes may include: ??? An allergic reaction. ??? Some cancer treatments (radiation). ??? Smoking cigarettes or the use of products that contain nicotine or tobacco. In some cases, the cause of this condition is not known. What increases the risk? Having a disease of the intestines. ??? Having a disease in which the body's immune system attacks the body (autoimmune disease), such as Crohn's disease. ??? Using aspirin or ibuprofen and other NSAIDs to treat other conditions, such as heart disease or chronic pain. ??? Stress. What are the signs or symptoms? Symptoms of this condition include: ??? Pain or a burning sensation in the upper abdomen. ??? Nausea. ??? Vomiting. ??? An uncomfortable feeling of fullness after eating. ??? Weight loss. ??? Bad breath. ??? Blood in your vomit or stool (feces). In some cases, there are no symptoms. How is this diagnosed? This condition may be diagnosed based on your medical history, a physical exam, and tests. Tests may include: ??? Your medical history and a description of your symptoms. ??? A physical exam. ??? Tests. These can include: ? Blood tests. ? Stool tests. ? A test in which a thin, flexible instrument with a light and a camera is passed down the esophagus and into the stomach (upper endoscopy). ? A test in which a tissue sample is removed to look at it under a microscope (biopsy). How is this treated? This condition may be treated with medicines. The medicines that are used vary depending on the cause of the gastritis. ??? If the condition is caused by a bacterial infection, you may be given antibiotic medicines. ??? If the condition is caused by too much acid in the stomach, you may be given medicines called H2 blockers, proton pump inhibitors, or antacids. Treatment may also involve stopping the use of certain medicines such as aspirin or ibuprofen and other NSAIDs. Follow these instructions at home: Medicines ??? Take sgsi-kpu-tqwemii and prescription medicines only as told by your health care provider. ??? If you were prescribed an antibiotic medicine, take it as told by your health care provider. Do not stop taking the antibiotic even if you start to feel better. Alcohol use ??? Do not drink alcohol if: ? Your health care provider tells you not to drink. ? You are , may be , or are planning to become . ??? If you drink alcohol: ? Limit your use to: ? 0?1 drink a day for women. ? 0?2 drinks a day for men. ? Know how much alcohol is in your drink. In the [place] one drink equals one 12 oz bottle of beer (355 mL), one 5 oz glass of wine (148 mL), or one 1? oz glass of hard liquor (44 mL). General instructions ??? Eat small, frequent meals instead of large meals. ??? Avoid foods and drinks that make your symptoms worse. ??? Talk with your health care provider about ways to manage stress, such as getting regular exercise or practicing deep breathing, meditation, or yoga. ??? Do not use any products that contain nicotine or tobacco. These products include cigarettes, chewing tobacco, and vaping devices, such as e-cigarettes. If you need help quitting, ask your health care provider. ??? Drink enough fluid to keep your urine pale yellow. ??? Keep all follow-up visits. This is important. Contact a health care provider if: ??? Your symptoms get worse. ??? Your abdominal pain gets worse. ??? Your symptoms return after treatment. ??? You have a fever. Get help right away if: ??? You vomit blood or a substance that looks like coffee grounds. ??? You have black or dark red stools. ??? You are unable to keep fluids down. These symptoms may represent a serious problem that is an emergency. Do not wait to see if the symptoms will go away. Get medical help right away. Call your local emergency services (911 in the [place] Do not drive yourself to the hospital. Summary ??? Gastritis is inflammation of the lining of the stomach that can occur suddenly (acute) or develop slowly over time (chronic). ??? This condition is diagnosed with a medical history, a physical exam, or tests. ??? This condition may be treated with medicines to treat infection or medicines to reduce the amount of acid in your stomach. ??? Follow your health care provider's instructions about taking medicines, making changes to your diet, and knowing when to call for help. This information is not intended to replace advice given to you by your health care provider. Make sure you discuss any questions you have with your health care provider. Document Revised: 03/08/2022 Document Reviewed: 03/08/2022 [employer] Patient Education ? 2023 [employer].Oncology Colon Polyps Colon polyps are tissue growths inside the colon, which is part of the large intestine. They are one of the types of polyps that can grow in the body. A polyp may be a round bump or a mushroom-shaped growth. You could have one polyp or more than one. Most colon polyps are noncancerous (benign). However, some colon polyps can become cancerous over time. Finding and removing the polyps early can help prevent this. What are the causes? The exact cause of colon polyps is not known. What increases the risk? The following factors may make you more likely to develop this condition: ??? Having a family history of colorectal cancer or colon polyps. ??? Being older than 45 years of age. ??? Being younger than 45 years of age and having a significant family history of colorectal cancer or colon polyps or a genetic condition that puts you at higher risk of getting colon polyps. ??? Having inflammatory bowel disease, such as ulcerative colitis or Crohn's disease. ??? Having certain conditions passed from parent to child (hereditary conditions), such as: ? Familial adenomatous polyposis (FAP). ? Phan syndrome. ? Turcot syndrome. ? Peutz?Jeghers syndrome. ? MUTYH-associated polyposis (MAP). ??? Being overweight. ??? Certain lifestyle factors. These include smoking cigarettes, drinking too much alcohol, not getting enough exercise, and eating a diet that is high in fat and red meat and low in fiber. ??? Having had childhood cancer that was treated with radiation of the abdomen. What are the signs or symptoms? Many times, there are no symptoms. If you have symptoms, they may include: ??? Blood coming from the rectum during a bowel movement. ??? Blood in the stool (feces). The blood may be bright red or very dark in color. ??? Pain in the abdomen. ??? A change in bowel habits, such as constipation or diarrhea. How is this diagnosed? This condition is diagnosed with a colonoscopy. This is a procedure in which a lighted, flexible scope is inserted into the opening between the buttocks (anus) and then passed into the colon to examine the area. Polyps are sometimes found when a colonoscopy is done as part of routine cancer screening tests. How is this treated? This condition is treated by removing any polyps that are found. Most polyps can be removed during a colonoscopy. Those polyps will then be tested for cancer. Additional treatment may be needed depending on the results of testing. Follow these instructions at home: Eating and drinking ??? Eat foods that are high in fiber, such as fruits, vegetables, and whole grains. ??? Eat foods that are high in calcium and vitamin D, such as milk, cheese, yogurt, eggs, liver, fish, and broccoli. ??? Limit foods that are high in fat, such as fried foods and desserts. ??? Limit the amount of red meat, precooked or cured meat, or other processed meat that you eat, such as hot dogs, sausages, fowler, or meat loaves. ??? Limit sugary drinks. Lifestyle ??? Maintain a healthy weight, or lose weight if recommended by your health care provider. ??? Exercise every day or as told by your health care provider. ??? Do not use any products that contain nicotine or tobacco, such as cigarettes, e-cigarettes, and chewing tobacco. If you need help quitting, ask your health care provider. ??? Do not drink alcohol if: ? Your health care provider tells you not to drink. ? You are , may be , or are planning to become . ??? If you drink alcohol: ? Limit how much you use to: ? 0?1 drink a day for women. ? 0?2 drinks a day for men. ? Know how much alcohol is in your drink. In the [place] one drink equals one 12 oz bottle of beer (355 mL), one 5 oz glass of wine (148 mL), or one 1? oz glass of hard liquor (44 mL). General instructions ??? Take asrs-yqu-awzmcfu and prescription medicines only as told by your health care provider. ??? Keep all follow-up visits. This is important. This includes having regularly scheduled colonoscopies. Talk to your health care provider about when you need a colonoscopy. Contact a health care provider if: ??? You have new or worsening bleeding during a bowel movement. ??? You have new or increased blood in your stool. ??? You have a change in bowel habits. ??? You lose weight for no known reason. Summary ??? Colon polyps are tissue growths inside the colon, which is part of the large intestine. They are one type of polyp that can grow in the body. ??? Most colon polyps are noncancerous (benign), but some can become cancerous over time. ??? This condition is diagnosed with a colonoscopy. ??? This condition is treated by removing any polyps that are found. Most polyps can be removed during a colonoscopy. This information is not intended to replace advice given to you by your health care provider. Make sure you discuss any questions you have with your health care provider. Document Revised: 02/20/2021 Document Reviewed: 02/20/2021 [employer] Patient Education ? 2023 [employer]. ENDOSCOPIC PROCEDURE REPORT - OTHER Observed: 05/11/2025 9:38 AM Status: F Source: [facility] Endoscopic Procedure Report - Other Patient: JAM TOSCANO Age: 60 years Sex: Male : 1965 Associated Diagnoses: None Author: Luis Antonio García MD Pre-Procedure Procedure Date 05/11/2025 09:39:00 . Procedure Type: Colonoscopy with removal of tumor(s), polyp(s), or other lesion(s) by snare technique, biopsy. Procedure provider Performed by Luis Antonio García MD. Current history and physical Documented on chart. Colonoscopy ([id number]) on 06/03/2024 at 59 Years. Esophagogastroduodenoscopy ([id number]) on 06/03/2024 at 59 Years. Colonoscopy ([id number]) on 02/26/2024 at 58 Years. Colonoscopy ([id number]) on 03/23/2023 at 57 Years. Cystoscopy ([id number]) on 02/04/2021 at 55 Years. Colonoscopy ([id number]). 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 Past Medical History Resolved Extreme obesity ([id number]): Resolved. Ulcerative colitis ([id number]): Resolved.. Family History Asthma Mother Hypertension Mother Heart disease Mother Arthritis Brother Stroke Father High cholesterol Mother . Procedure History Colonoscopy ([id number]) on 06/03/2024 at 59 Years. Esophagogastroduodenoscopy ([id number]) on 06/03/2024 at 59 Years. Colonoscopy ([id number]) on 02/26/2024 at 58 Years. Colonoscopy ([id number]) on 03/23/2023 at 57 Years. Cystoscopy ([id number]) on 02/04/2021 at 55 Years. Colonoscopy ([id number]). right hip replacement ([id number]). replacement on both knees ([id number]).. Colorectal neoplasm risk assessment High risk UC. [...] Normal examined terminal ileum Images Procedure images: Rec_hd_video_2024__[id number].jpg Rec_hd_video_2024__26T08_51_13_133.jpg Rec1_hd_video__T08_49_40_945.jpg Rec1_hd_video__T08_49_38_294.jpg Rec1_hd_video__T08_49_18_184.jpg Rec1_hd_video__T08_48_29_082.jpg Rec1_hd_video__T08_46_41_422.jpg Rec1_hd_video__T08_46_34_729.jpg Rec1_hd_video__T08_45_48_465.jpg Rec1_hd_video__T08_45_24_570.jpg Rec1_hd_video__T08_44_33_815.jpg Rec1_hd_video__T08_44_19_114.jpg Rec1_hd_video__T08_44_16_001.jpg Rec1_hd_video__T08_43_37_655.jpg Rec1_hd_video__T08_43_27_412.jpg Rec1_hd_video__T08_41_31_734.jpg Rec1_hd_video__T08_40_17_704.jpg Rec1_hd_video_T08_40_14_761.jpg Rec1_hd_video_T08_39_52_266.jpg Rec1_hd_video_T08_37_00_293.jpg Rec1_hd_video_T08_36_52_112.jpg Rec1_hd_video_T08_36_30_427.jpg Rec1_hd_video_T08_36_28_867.jpg Rec1_hd_video_T08_34_59_731.jpg Rec1_hd_video_T08_34_56_942.jpg Rec1_hd_video_T08_34_53_669.jpg Rec1_hd_video_T08_34_42_185.jpg Rec1_hd_video_T08_31_54_919.jpg Rec1_hd_video__T08_31_51_861.jpg Rec1_hd_video_[id number]_[id number].jpg Rec1_hd_video_T08_31_45_075.jpg Rec1_hd_video_T08_31_43_538.jpg Rec1_hd_video__T08_29_50_855.jpg Rec1_hd_video__T08__52_867.jpg Rec1_hd_video__08__38_738.jpg . Post-Procedure Complications: none. Estimated blood loss: Minimal. Specimens: sent to pathology. Devices/ implants: none left in place. Impression and Plan 1. Small internal hemorrhoids [...] colonoscopy:: In 1 year, Based on path . Follow-up:: in clinic for 1-2 weeks when pathology is available. Diet:: Previous. Medication resumption:: Continue current medications, Avoid NSAIDs. Return to activities:: After 24 hours. Education and Follow-up: Counseled: Patient, Family. Result Comment: Electronical ly Signed By: Ricyk ROBLERO, Luis Antonio Tiwari\.br\Date and Time Signed: 05/11/25 09:42 EDT Other Comment: Missing Attac hment - attachment storage system not supported [id number] Can be viewed in source system Missing Attachment - attachment storage system not supported [id number] Can be viewed in source systemMissing Attachment - attachment storage system not supported [id number] Can be viewed in source systemMissing Attachment - attachment storage system not supported [id number] Can be viewed in source systemMissing Attachment - attachment storage system not supported [id number] Can be viewed in source systemMissing Attachment - attachment storage system not supported 3619885 Can be viewed in source systemMissing Attachment - attachment storage system not supported [id number] Can be viewed in source systemMissing Attachment - attachment storage system not supported [id number] Can be viewed in source systemMissing Attachment - attachment storage system not supported [id number] Can be viewed in source systemMissing Attachment - attachment storage system not supported [id number] Can be [facility] Attachment - attachment storage system not supported [id number] Can be viewed in [facility] Attachment - attachment storage system not supported [id number] Can be viewed in [facility] Attachment - attachment storage system not supported [id number] Can be viewed in [facility] Attachment - attachment storage system not supported [id number] Can be viewed in [facility] Attachment - attachment storage system not supported [id number] Can be viewed in [facility] Attachment - attachment storage system not supported [id number] Can be viewed in [facility] Attachment - attachment storage system not supported 0733537 Can be viewed in [facility] Attachment - attachment storage system not supported 1573959 Can be viewed in [facility] Attachment - attachment storage system not supported 6153903 Can be viewed in [facility] Attachment - attachment storage system not supported 7208431 Can be viewed in [facility] Attachment - attachment storage system not supported [id number] Can be viewed in [facility] Attachment - attachment storage system not supported [id number] Can be viewed in [facility] Attachment - attachment storage system not supported 0510313 Can be viewed in [facility] Attachment - attachment storage system not supported [id number] Can be viewed in [facility] Attachment - attachment storage system not supported 1850233 Can be viewed in [facility] Attachment - attachment storage system not supported 5625132 Can be viewed in [facility] Attachment - attachment storage system not supported 1615518 Can be viewed in [facility] Attachment - attachment storage system not supported 9883911 Can be viewed in [facility] Attachment - attachment storage system not supported [id number] Can be viewed in [facility] Attachment - attachment storage system not supported [id number] Can be viewed in [facility] Attachment - attachment storage system not supported [id number] Can be viewed in [facility] Attachment - attachment storage system not supported [id number] Can be viewed in [facility] Attachment - attachment storage system not supported [id number] Can be viewed in [facility] Attachment - attachment storage system not supported 5364035 Can be viewed in [facility] Attachment - attachment storage system not supported [id number] Can be viewed in source system MAIN OR PREOPERATIVE RECORD Observed: 9:15 AM Status: F Source: [facility] Main OR Preoperative Record Holding Area Document Type FT Summary Primary Physician: Luis Antonio García MD Finalized Date/Time: 05/11/25 08:28:46 Pt. Name: JAM TOSCANO Angel MelendezB./Sex: 1965 Male Med Rec #: [id number] Physician: Luis Antonio García MD Financial #: [id number] Pt. Type: O Room/Bed: / Admit/Disch: 05/11/25 [...] completed prep at 0500 and remained NPO since/DOMITILA GALINDO Finalized By: Obdulia Del Toro RN Document Signatures Signed By: Obdulia Del Toro RN 05/11/25 08:28 SURGICAL PATHOLOGY REPORT Observed: 04/17 9:14 AM Status: F Source: [facility] [place] [address]- Surgical Pathology Report Collected Date/Time: 05/11/2025 09:14 EDT Pathologist: Lashaun Peguero MD Received Date/Time: 05/11/2025 09:52 EDT Ricky ROBLERO, Luis Antonio García MD, Luis Antonio Johnson Surgical Pathology Report - 05/16/2025 12:27 EDT [...] and gastric biopsy are multiple fragments of concepcion/pink tissue ranging from less than 0.1 cm up to 0.5 cm in greatest dimension. Specimen is entirely submitted in one cassette. B: Received in formalin labeled with patient name, number, and right colon biopsy are two fragments of concepcion/pink tissue measuring less than 0.1 cm and up to 0.2 cm. Specimen is entirely submitted in one cassette. C: Received in formalin labeled with patient name, number, and transverse colon biopsy are multiple fragments of concepcion/pink tissue each measuring 0.1 cm. Specimen is entirely submitted in one cassette. D: Received in formalin labeled with patient name, number, and left colon biopsy are multiple fragments of concepcion/pink tissue measuring less than 0.1 cm and up to 0.2 cm. Specimen is entirely submitted in one cassette. E: Received in formalin labeled with patient name, number, and rectal colon biopsy are two fragments of concepcion/pink tissue each measuring 0.1 cm. Specimen is entirely submitted in one cassette. F: Received in formalin labeled with patient name, number, and descending colon polyp is a single fragment of concepcion/red/pink tissue measuring 1 x 0.5 x 0.1 cm. Black debridement-like material measuring up to 0.2 cm is present. Specimen is entirely submitted in one cassette. G: Received in formalin labeled with patient name, number, and rectosigmoid biopsy are two fragments of concepcion/pink tissue measuring 0.1 and 0.2 cm. The specimen is entirely submitted in one cassette. H. Received in formalin labeled with patient name, number, and sigmoid colon polyp are multiple fragments of concepcion/pink tissue ranging from less than 0.1 cm [...] characteristics were determined by the [facility] Surgical [facility]ology. They have not been cleared or approved by the US Food and Drug Administration. The FDA has determined that such clearance or approval is not necessary. These tests are used for clinical purposes. They should not be regarded as investigational or for research. Appropriate positive and negative controls are performed and are acceptable. This report was transcribed using voice recognition technology and might contain unintended computerized sheep herder errors. Microscopic examination performed unless gross only specified. Quality was accessed and acceptable. Performed By: #### [id number] # ### [facility] [address] [place] [address] SURGICAL PATHOLOGY REPORT Observed: 04/17 9:14 AM Status: F Source: [facility] [address] [place] [address]- Surgical Pathology Report Collected Date/Time: 05/11/2025 09:14 [...] and gastric biopsy are multiple fragments of concepcion/pink tissue ranging from less than 0.1 cm up to 0.5 cm in greatest dimension. Specimen is entirely submitted in one cassette. B: Received in formalin labeled with patient name, number, and right colon biopsy are two fragments of concepcion/pink tissue measuring less than 0.1 cm and up to 0.2 cm. Specimen is entirely submitted in one cassette. C: Received in formalin labeled with patient name, number, and transverse colon biopsy are multiple fragments of concepcion/pink tissue each measuring 0.1 cm. Specimen is entirely submitted in one cassette. D: Received in formalin labeled with patient name, number, and left colon biopsy are multiple fragments of concepcion/pink tissue measuring less than 0.1 cm and up to 0.2 cm. Specimen is entirely submitted in one cassette. E: Received in formalin labeled with patient name, number, and rectal colon biopsy are two fragments of concepcion/pink tissue each measuring 0.1 cm. Specimen is entirely submitted in one cassette. F: Received in formalin labeled with patient name, number, and descending colon polyp is a single fragment of concepcion/red/pink tissue measuring 1 x 0.5 x 0.1 cm. Black debridement-like material measuring up to 0.2 cm is present. Specimen is entirely submitted in one cassette. G: Received in formalin labeled with patient name, number, and rectosigmoid biopsy are two fragments of concepcion/pink tissue measuring 0.1 and 0.2 cm. The specimen is entirely submitted in one cassette. H. Received in formalin labeled with patient name, number, and sigmoid colon polyp are multiple fragments of concepcion/pink tissue ranging from less than 0.1 cm [...] characteristics were determined by the [facility]. They have not been cleared or approved by the US Food and Drug Administration. The FDA has determined that such clearance or approval is not necessary. These tests are used for clinical purposes. They should not be regarded as investigational or for research. Appropriate positive and negative controls are performed and are acceptable. This report was transcribed using voice recognition technology and might contain unintended computerized sheep herder errors. Microscopic examination performed unless gross only specified. Quality was accessed and acceptable. Performed By: #### [id number] # ### [facility] [address] [place] [address] ENDOSCOPIC PROCEDURE REPORT - OTHER Obse rved: 05/11/2025 9:09 AM Status: F Source: [facility] Endoscopic Procedure Report - Other Patient: JAM [...] 3. Normal examined duodenum Images Procedure images: Rec_hd_video__08__56_057.jpg Rec_hd_video__T08__57_831.jpg Rec1_hd_video_T08__48_458.jpg Rec1_hd_video__T08__07_359.jpg Rec1_hd_video__T08__01_838.jpg Rec1_hd_video__T08__50_569.jpg Rec1_hd_video_T08__40_359.jpg Rec1_hd_video__T08__37_996.jpg Rec1_hd_video__T08__33_227.jpg Rec1_hd_video__08__20_439.jpg Rec1_hd_video__T08__03_318.jpg . Post-Procedure Complications: none. Estimated blood loss: [...] in GI clinic in 1-2 after discharge Result Comment: Electronical ly Signed By: Ricky ROBLERO, Luis Antonio Tiwari\.br\Date and Time Signed: 05/11/25 09:10 EDT Other Comment: Missing Attac hment - attachment storage system not supported [id number] Can be viewed in source system Missing Attachment - attachment storage system not supported [id number] Can be viewed in source systemMissing Attachment - attachment storage system not supported [id number] Can be viewed in source systemMissing Attachment - attachment storage system not supported [id number] Can be viewed in source systemMissing Attachment - attachment storage system not supported 2286417 Can be viewed in source systemMissing Attachment - attachment storage system not supported 6631735 Can be viewed in source systemMissing Attachment - attachment storage system not supported 3980262 Can be viewed in source systemMissing Attachment - attachment storage system not supported 9382382 Can be viewed in source systemMissing Attachment - attachment storage system not supported 5602523 Can be viewed in source systemMissing Attachment - attachment storage system not supported 5533263 Can be viewed in source systemMissing Attachment - attachment storage system not supported [id number] Can be viewed in source system MAIN OR INTRAOPERATIVE RECORD Observed: 05/11/2025 9:07 AM Status: C Source: [facility] Main OR Intraoperative Recor d IntraOp Document Type FT Summary Primary Physician: Luis Antonio García MD Finalized Date/Time: 05/12/25 09:28:01 Pt. Name: JAM TOSCANO Angel Ochoa/Sex: 1965 Male Med Rec #: [id number] Physician: Luis Antonio García MD Financial #: [id number] Pt. Type: O Room/Bed: / Admit/Disch: 05/11/25 [...] time at 0909./MATEORN Colonoscopy start time at 0914./KS,RN Case Attendance FT Entry 1 Entry 2 Entry 3 Case Attendee Jeremi HERNÁNDEZ, Fatmata Wallace RN, Jennifer Flores Role Performed Anesthesiologist Barrel Roller - Primary Scrub - Primary Franchise Consultant Time In 05/11/25 09:02:00 05/11/25 09:02:00 05/11/25 09:02:00 Time Out 05/11/25 09:41:00 05/11/25 09:41:00 05/11/25 09:41:00 Procedure EGD AND COLONOSCOPY(.) EGD AND COLONOSCOPY(.) EGD AND COLONOSCOPY(.) Comments Dr. Ramos is supervising Last Modified By: Rodrigo RAMESH, Rosanna Wallace RN, Rosanna Ulrich RN 05/11/25 09:41:59 05/11/25 09:41:59 05/11/25 09:41:59 Entry 4 Entry 5 Case Attendee Jeniffer OLMSTEAD, Claire García MD, Luis Antonio Tiwari Role Performed Staff - Other Surgeon - Primary Time In 05/11/25 09:02:00 05/11/25 09:02:00 Time Out 05/11/25 09:41:00 05/11/25 09:41:00 Procedure EGD AND COLONOSCOPY(.) EGD AND COLONOSCOPY(.) Comments Last Modified By: Rosanna Wallace RN, RN, Kristin N 05/11/25 09:41:59 05/11/25 09:41:59 Perioperative Protocols FT [...] Out Fatmata Blood CRNA, Given Participants Rosanna Wallace RN, Jennifer Ellis, Jeniffer PEDIATRICS HOSPITALIST, Ricky Sylvester MD, Luis Antonio Tiwari Time [...] sigmoid biopsy. Primary Procedure Yes Primary Surgeon iRcky ROBLERO, Luis Antonio Tiwari Start 05/11/25 09:07:00 Stop 05/11/25 09:38:00 Anesthesia [...] and tissue Entry 1 Skin Integrity Intact, [place], Warm, & Skin Abnormality No Dry Outcomes Met? Yes Last Modified By: Rosanna Wallace RN 05/11/25 09:06:12 Post-Care Text: The patient is free from signs and symptoms of injury caused by extraneous objects Patient Positioning FT Pre-Care Text: Identifies physical alterations that require additional precautions for procedure-specific positioning, verifies presence of prosthetics or corrective devices, positions the patient, evaluates the patient for signs and symptoms of injury as a result of positioning Entry 1 Procedure EGD AND COLONOSCOPY(.) Body Position Lateral, right side up Feet Uncrossed? Yes Left Arm Position Resting at Side Right Arm Position Resting at Side Left Leg Position Extended Right Leg Position Extended Positioning Device Safety Strap, Pillow Under Head Large Press Points Checked Yes By Rosanna Wallace RN, Rosanna Wallace RN Outcomes Met? Yes Last Modified By: Rosanna Wallace RN 05/11/25 09:06:17 Post-Care Text: The patient is free from signs and symptoms of injury related to positioning Patient Care Devices FT Pre-Care Text: Implements protective measures to prevent skin/ tissue injury due to thermal or mechanical sources Entry 1 Entry 2 Equipment Type ENDOSCOPY VIDEO SYSTEM MONITOR CHARGE SURGERY Equipment Number [id number] E1 Equipment Setting Outcomes Met? Yes Yes Last Modified By: Rosanna Wallace RN, RN, Kristin N 05/11/25 09:06:35 05/11/25 09:06:35 Post-Care Text: The patient is free from signs and symptoms of injury caused by extraneous objects Transport To OR Pre-Care Text: Transports according to individual needs. Evaluates for signs and symptoms of skin and tissue injury as a result of transfer or transport Entry 1 Via Cart By Rosanna Wallace RN Safety Precautions Side Rails Up Outcomes Met? Yes Last Modified By: Rosanna Wallace RN 05/11/25 09:06:47 Post-Care Text: The patient is free from signs and symptoms of injury related to transfer/transport Departure From OR Pre-Care Text: Transports according to individual needs. Evaluates for signs and symptoms of skin and tissue injury as a result of transfer or transport. Entry 1 Via Cart Safety Precautions Safety Strap, Side Rails Up PostOp Destination PACU Transported By Rosanna Wallace RN Patient Status Stable Skin. Condition Intact, [place], Warm, & Dry Airway Maintenance Oxygen in Use? No Outcomes Met? Yes Last Modified By: Rosanna Wallace RN 05/11/25 09:09:34 Post-Care Text: The patient is free from signs and symptoms of injury related to transfer/transport General Comments: Report Medication Administration FT Pre-Care Text: Verifies allergies, administers prescribed medications and solutions, administers prescribed antibiotic therapy and immunizing agents as ordered, evaluates response to medications Administers prescribed medications and solutions Entry 1 Expiration Date Yes Outcomes Met? Yes Verified Last Modified By: Rosanna Wallace RN 05/11/25 09:09:57 Post-Care Text: The patient received appropriate medication(s) safely administered during the perioperative period For [place] please see scanned medication reconcilliation form for medications used at the field during the procedure. Cultures & Specimens FT Pre-Care Text: Manages specimen handling and disposition Manages culture specimen collection Entry 1 Cultures Ordered n/a Specimens Ordered Yes Specimen Disposition Designated OR Area Frozen Section Times Outcomes Met? Yes Last Modified By: Rosanna Wallace RN 05/11/25 09:10:06 Post-Care Text: The patient is free from signs and symptoms of injury caused by extraneous objects The patient is free from signs and symptoms of infection Sign Out FT Entry 1 Before Patient Leaves OR Nurse verbally Yes Nurse verbally n/a confirms with the confirms with the team the name of team that the procedure(s) instrument, sponge, recorded and needle counts are correct (or N/A) Nurse verbally Yes Nurse verbally Yes confirms with the confirms with the team how the team whether there specimen is labeled are any equipment (including patient problems to be name), if applicable addressed Sign Out Complete 05/11/25 09:38:00 Last Modified By: Rosanna Wallace RN 05/11/25 09:38:42 Case Comments <None> Finalized By: ALAN Mario RN, Melinda Document Signatures Signed By: Rosanna Wallace RN 05/11/25 09:42 Rosanna Wallace RN 05/11/25 16:51 ALAN Mario RN, Melinda 05/12/25 09:28 Unfinalized History Date/Time Username Reason for Unfinalizing Freetext Reason for Unfinalizing 05/11/25 16:50 [id number] Modifying Existing Data 05/12/25 09:26 [id number] Other - See Nurses Notes opened for charge review and to send charges MAIN OR PACU I RECORD Observed: 05/11/20 9:07 AM Status: F Source: [facility] Main OR PACU I Record PACU Phase I Document Type FT Summary Primary Physician: Luis Antonio García MD Finalized Date/Time: 05/11/25 10:51:19 Pt. Name: JAM TOSCANO/Sex: 1965 Male Med Rec #: [id number] Physician: Luis Antonio García MD Financial #: [id number] Pt. Type: O Room/Bed: / Admit/Disch: 05/11/25 [...] By: Mary Lou Garcia RN 05/11/25 10:51 HISTORY AND PHYSICAL Observed: 9:05 AM Status: F Source: [facility] History and Physical Patient: JAM TOSCANO Age: 60 years Sex: Male : 1965 Associated Diagnoses: None Author: Luis Antonio García MD Preoperative Information Indication for procedure and diagnosis: [...] All Problems Food insecurity / SNOMED CT 7051122982 / Possible Problem added automatically by Discern Expert based on clinical documentation Financial problem / SNOMED CT 139724259 / Possible Problem added automatically by Discern Expert based on clinical documentation Unable to afford medication / SNOMED CT 472213177371365 / Possible Problem added automatically by Discern Expert based on clinical documentation Hyperlipemia / SNOMED CT 19460440 / Confirmed Rectal bleed / SNOMED CT 316642481 / Confirmed Heartburn / SNOMED CT 98001970 / Confirmed Ulcerative colitis, universal / SNOMED CT 3959346282 / Confirmed Bladder stone / SNOMED CT 014166123 / Confirmed BPH with urinary obstruction / SNOMED CT 5983269407 / Confirmed Incomplete bladder emptying / SNOMED CT 562893606 / Confirmed Gross hematuria / SNOMED CT 034584310 / Confirmed Kidney stones / SNOMED CT 645033555 / Confirmed Bladder mass / SNOMED CT 6330380615 / Confirmed Urethral stone / SNOMED CT 90745735 / Confirmed Prostate calculus / SNOMED CT 494842464 / Confirmed Continuous severe abdominal pain / SNOMED CT 56156670 / Confirmed Hematochezia / SNOMED CT 0741119282 / Confirmed Acute diarrhea / SNOMED CT 9925647181 / Confirmed [place] ulcerative colitis / SNOMED CT 1544174053 / Confirmed Adenomatous colon polyp / SNOMED CT 8786224325 / Confirmed History of colon polyps / SNOMED CT 5596297754 / Confirmed Elevated alkaline phosphatase level / SNOMED CT 5983651563 / Confirmed Anemia / SNOMED CT 468724505 / Confirmed Arthritis / SNOMED CT 2388442 / Confirmed Multiple renal cysts / SNOMED CT 322183491 / Confirmed Ureteral stone with hydronephrosis / SNOMED CT 9754737175 / Confirmed Screening PSA (prostate specific antigen) / SNOMED CT 254692175 / Confirmed Feeling of incomplete bladder emptying / SNOMED CT 6859991477 / Confirmed Pyuria / SNOMED CT 7869449 / Confirmed Histories Past Medical History: Resolved Extreme obesity ([id number]): Resolved. Ulcerative colitis (425783780): Resolved. Family History: Brother Arthritis Father Stroke Mother Asthma High cholesterol Hypertension Heart disease Procedure history: Colonoscopy (710709395) on 06/03/2024 at 59 Years. Esophagogastroduodenoscopy (181705320) on 06/03/2024 at 59 Years. Colonoscopy (704692830) on 02/26/2024 at 58 Years. Colonoscopy (559548986) on 03/23/2023 at 57 Years. Cystoscopy ([id number]) on 02/04/2021 at 55 Years. Colonoscopy (520363766). right hip replacement (070112520). replacement on both knees (284331298). Social History Social & Psychosocial Habits Alcohol 12/14/2024 Risk Assessment: Denies Alcohol Use 12/14/2024 Use: Never Comment: denies - 01/14/2023 08:52 - Janna Garciaca I Exercise 12/14/2024 Risk Assessment: Occasional exercise Other 12/14/2024 Name: Caffiene- Coffee 1 cup daily Substance Abuse 12/14/2024 Risk Assessment: Denies Substance Abuse 12/14/2024 Use: Never Comment: bryson - 01/14/2023 08:52 - Janna Garciaca I Tobacco 12/14/2024 Risk Assessment: Denies Tobacco Use 12/14/2024 Tobacco Use: Former smoker, quit more Smokeless tobacco use: Never 12/14/2024 Tobacco Use: Former smoker, quit more Smokeless tobacco use: Never Smoking Cessation Yes 12/14/2024 Tobacco Use: Former smoker, quit more 12/14/2024 Tobacco Use: Former smoker, quit more Smokeless tobacco use: Never Type: Cigarettes . Physical Examination Vital Signs (last 24 hrs) Last Charted Temp Temporal 36.9 DegC (MAY 11 08:27) Heart Rate Monitored H 109 bpm (MAY 11 08:27) SBP 129 mmHg (MAY 11 08:27) DBP H 99 mmHg (MAY 11 08:27) Weight 77 kg (MAY 11 08:26) General: in Nad Abdomen: Soft, NTND Impression and Plan Impression: Gastritis, UC Plan: -EGD and Colonoscopy Result Comment: Electronical ly Signed By: Ricky ROBLERO, Luis Antonio Tiwari\.sania\Date and Time Signed: 05/11/25 09:09 EDT PROGRESS NOTE-PHYSICIAN Observed: 2024 8:36 AM Status: F Source: [facility] Progress Note-Physician Patient: JAM TOSCANO Age: 60 years Sex: [...] All Problems Acute diarrhea / SNOMED CT 5418748286 / Confirmed Adenomatous colon polyp / SNOMED CT 1236729910 / Confirmed Anemia / SNOMED CT 172944849 / Confirmed Arthritis / SNOMED CT 9346441 / Confirmed Bladder mass / SNOMED CT 6507201442 / Confirmed Bladder stone / SNOMED CT 781636602 / Confirmed BPH with urinary obstruction / SNOMED CT 0975777491 / Confirmed Continuous severe abdominal pain / SNOMED CT 62083310 / Confirmed Elevated alkaline phosphatase level / SNOMED CT 1563224732 / Confirmed Feeling of incomplete bladder emptying / SNOMED CT 7126452979 / Confirmed Financial problem / SNOMED CT 610723571 / Possible Problem added automatically by Discern Expert based on clinical documentation Food insecurity / SNOMED CT 8709877427 / Possible Problem added automatically by Discern Expert based on clinical documentation Gross hematuria / SNOMED CT 335470256 / Confirmed Heartburn / SNOMED CT 22034213 / Confirmed Hematochezia / SNOMED CT 6025298245 / Confirmed History of colon polyps / SNOMED CT 7216664708 / Confirmed Hyperlipemia / SNOMED CT 66493109 / Confirmed Incomplete bladder emptying / SNOMED CT 700253506 / Confirmed Kidney stones / SNOMED CT 900928763 / Confirmed Multiple renal cysts / SNOMED CT 393576288 / Confirmed Prostate calculus / SNOMED CT 834200203 / Confirmed Pyuria / SNOMED CT 3338620 / Confirmed Rectal bleed / SNOMED CT 405725040 / Confirmed Screening PSA (prostate specific antigen) / SNOMED CT 347216226 / Confirmed Ulcerative colitis, universal / SNOMED CT 2923453206 / Confirmed Unable to afford medication / SNOMED CT [id number] / Possible Problem added automatically by Discern Expert based on clinical documentation [place] ulcerative colitis / SNOMED CT 3568893695 / Confirmed Ureteral stone with hydronephrosis / SNOMED CT 5999807819 / Confirmed Urethral stone / SNOMED CT 00193155 / Confirmed Resolved: Extreme obesity / SNOMED CT [id number] Resolved: Ulcerative colitis / SNOMED CT 258524290 Canceled: Ulcerative colitis / SNOMED CT 206568557 Histories Past Medical History: Resolved Extreme obesity ([id number]): Resolved. Ulcerative colitis (883415818): Resolved. Procedure history: Colonoscopy ([id number]) on 06/03/2024 at 59 Years. Esophagogastroduodenoscopy ([id number]) on 06/03/2024 at 59 Years. Colonoscopy ([id number]) on 02/26/2024 at 58 Years. Colonoscopy ([id number]) on 03/23/2023 at 57 Years. Cystoscopy ([id number]) on 02/04/2021 at 55 Years. Colonoscopy ([id number]). right hip replacement (855937755). replacement on both knees (157596574). Social History Social & Psychosocial Habits Alcohol 12/14/2024 Risk Assessment: Denies Alcohol Use 12/14/2024 Use: Never Comment: denies - 01/14/2023 08:52 - Janna Garciaca I Exercise 12/14/2024 Risk Assessment: Occasional exercise Other 12/14/2024 Name: Caffiene- Coffee 1 cup daily Substance Abuse 12/14/2024 Risk Assessment: Denies Substance Abuse 12/14/2024 Use: Never Comment: denies - 01/14/2023 08:52 - Garcia, Tamiko I Tobacco 12/14/2024 Risk Assessment: Denies Tobacco Use 12/14/2024 Tobacco Use: Former smoker, quit more Smokeless tobacco use: Never 12/14/2024 Tobacco Use: Former smoker, quit more Smokeless tobacco use: Never Smoking Cessation Yes 12/14/2024 Tobacco Use: Former smoker, quit more 12/14/2024 Tobacco Use: Former smoker, quit more Smokeless tobacco use: Never Type: Cigarettes . Physical Examination Vital Signs 05/11/2025 8:27 EDT SpO2 95 % 05/11/2025 8:27 EDT Heart Rate Monitored 109 bpm HI 05/11/2025 8:27 EDT Temperature Temporal Artery 36.9 DegC Respiratory Rate 18 br/min Systolic Blood Pressure 129 mmHg Diastolic Blood Pressure 99 mmHg HI Blood Pressure Location Left arm Measurements from flowsheet : Measurements 05/11/2025 8:26 EDT Height/Length Measured 166 cm Height/Length Dosing 166.0 cm Weight Dosing 77.0 kg Weight Measured 77 kg Airway: Mallampati classification: II (soft palate, fauces, uvula visible). Respiratory: Lungs are clear to auscultation, Respirations are non-labored. Cardiovascular: Regular rhythm. Plan [place] [employer] (ASA) physical status classification: Class III. Anesthetic Preoperative Plan: Anesthesia General, and -TIVA. Result Comment: Electronical ly Signed By: Kody Ramos Jr., DO.br\Date and Time Signed: 05/11/25 08:36 EDT DISCHARGE INSTRUCTIONS Observed: 025 8:07 AM Status: F Source: [facility] Discharge Instructions JAM TOSCANO :1965 Visit Date:05/11/2025 [...] With: Ricky ROBLERO, Luis Antonio Tiwari Where: [facility] [address] Medical [address] [address]- New Follow Up Appointments after Discharge Follow Up with Ricky ROBLERO, Luis Antonio Tiwari, [facility] When: Comments: office will call for follow up Where: [address], [address] [phone] [phone] Medications What How Much When Instructions Next [...] PSA (prostate specific antigen) Ulcerative colitis, universal [place] ulcerative colitis Ureteral stone with hydronephrosis Urethral [...] activities are safe for you. ??? Take mdeh-bkl-jjvoowp and prescription medicines only as told by [...] provider. Document Revised: 02/11/2023 Document Reviewed: 02/11/2023 [employer] Patient Education ??? 2023 [employer]. Peptic Ulcer A peptic ulcer is a [...] type of bacteria called Helicobacter pylori or H. pylori. ??? Regular use of NSAIDs, such as ibuprofen or aspirin. ??? Rare tumors in the stomach, small intestine, or pancreas (Jean???Yoder syndrome). What increases the risk? The following factors may make you more likely to develop this condition: ??? Smoking. ??? Having a family history of ulcer disease. ??? Drinking alcohol. ??? Having been hospitalized in an intensive care unit (ICU). What are the signs or symptoms? Symptoms of this condition include: ??? Persistent burning pain in the area between the chest and the belly button. The pain may be worse on an empty stomach and at night. ??? Heartburn. ??? Nausea and vomiting. ??? Bloating. If the ulcer results in bleeding, it can cause: ??? Black, tarry stools. ??? Vomiting of bright red blood. ??? Vomiting of material that looks like coffee grounds. How is this diagnosed? This condition may be diagnosed based on: ??? Your medical history and a physical exam. ??? Various tests or procedures, such as: ? Upper endoscopy. The health care provider examines the esophagus, stomach, and small intestine using a small flexible tube that has a video camera at the end. ? Blood tests, stool tests, or breath tests to check for the H. pylori bacteria. ? An X-ray exam (upper gastrointestinal series) of the esophagus, stomach, and small intestine. ? A biopsy to help find certain causes of ulcers. A tissue sample is removed during upper endoscopy to be examined under a microscope. How is this treated? Treatment for this condition may include: ??? Eliminating the cause of the ulcer, such as smoking or use of NSAIDs, and limiting alcohol and caffeine intake. ??? Medicines to reduce the amount of acid in your digestive tract. ??? Antibiotic medicines, if the ulcer is caused by an H. pylori infection. ??? An upper endoscopy may be used to treat a bleeding ulcer. ??? Surgery. This may be needed if the bleeding is severe or if the ulcer created a hole somewhere in the digestive system. Follow these instructions at home: ??? Do not drink alcohol if your health care provider tells you not to drink. ??? Do not use any products that contain nicotine or tobacco. These products include cigarettes, chewing tobacco, and vaping devices, such as e-cigarettes. If you need help quitting, ask your health care provider. ??? Take ejiv-bns-oieqism and prescription medicines only as told by your health care provider. ? Do not use drqd-nkg-phttpro medicines in place of prescription medicines unless your health care provider approves. ? Do not take aspirin, ibuprofen, or other NSAIDs unless your health care provider tells you to. ??? Keep all follow-up visits. This is important. Contact a health care provider if: ??? Your symptoms do not improve within 7 days of starting treatment. ??? You have ongoing indigestion or heartburn. Get help right away if: ??? You have sudden, sharp, or persistent pain in your abdomen. ??? You have bloody or dark black, tarry stools. ??? You vomit blood or material that looks like coffee grounds. ??? You become light-headed or you feel faint. ??? You become weak. ??? You become sweaty or clammy. These symptoms may be an emergency. Get help right away. Call 911. ??? Do not wait to see if the symptoms will go away. ??? Do not drive yourself to the hospital. Summary ??? A peptic ulcer is a sore in the lining of the stomach (gastric ulcer) or the first part of the small intestine (duodenal ulcer). The ulcer causes a gradual wearing away (erosion) of the deeper tissue. ??? Do not use any products that contain nicotine or tobacco. These products include cigarettes, chewing tobacco, and vaping devices, such as e-cigarettes. If you need help quitting, ask your health care provider. ??? Take jubf-fej-tihtkfe and prescription medicines only as told by your health care provider. Do not use mjip-rom-vtjombo medicines in place of prescription medicines unless your health care provider approves. ??? Limit your alcohol and caffeine intake. ??? Keep all follow-up visits. This is important. This information is not intended to replace advice given to you by your health care provider. Make sure you discuss any questions you have with your health care provider. Document Revised: 06/13/2022 Document Reviewed: 06/13/2022 [employer] Patient Education ??? 2023 [employer] Gastritis, Adult Gastritis is inflammation of the stomach. There are two kinds of gastritis: ??? Acute gastritis. This kind develops suddenly. ??? Chronic gastritis. This kind is much more common. It develops slowly and lasts for a long time. Gastritis happens when the lining of the stomach becomes weak or gets damaged. Without treatment, gastritis can lead to stomach bleeding and ulcers. What are the causes? This condition may be caused by: ??? An infection. ??? Drinking too much alcohol. ??? Certain medicines. These include steroids, antibiotics, and some vvnu-mmz-wikgxxd medicines, such as aspirin or ibuprofen. ??? Having too much acid in the stomach. ??? Having a disease of the stomach. Other causes may include: ??? An allergic reaction. ??? Some cancer treatments (radiation). ??? Smoking cigarettes or the use of products that contain nicotine or tobacco. In some cases, the cause of this condition is not known. What increases the risk? Having a disease of the intestines. ??? Having a disease in which the body's immune system attacks the body (autoimmune disease), such as Crohn's disease. ??? Using aspirin or ibuprofen and other NSAIDs to treat other conditions, such as heart disease or chronic pain. ??? Stress. What are the signs or symptoms? Symptoms of this condition include: ??? Pain or a burning sensation in the upper abdomen. ??? Nausea. ??? Vomiting. ??? An uncomfortable feeling of fullness after eating. ??? Weight loss. ??? Bad breath. ??? Blood in your vomit or stool (feces). In some cases, there are no symptoms. How is this diagnosed? This condition may be diagnosed based on your medical history, a physical exam, and tests. Tests may include: ??? Your medical history and a description of your symptoms. ??? A physical exam. ??? Tests. These can include: ? Blood tests. ? Stool tests. ? A test in which a thin, flexible instrument with a light and a camera is passed down the esophagus and into the stomach (upper endoscopy). ? A test in which a tissue sample is removed to look at it under a microscope (biopsy). How is this treated? This condition may be treated with medicines. The medicines that are used vary depending on the cause of the gastritis. ??? If the condition is caused by a bacterial infection, you may be given antibiotic medicines. ??? If the condition is caused by too much acid in the stomach, you may be given medicines called H2 blockers, proton pump inhibitors, or antacids. Treatment may also involve stopping the use of certain medicines such as aspirin or ibuprofen and other NSAIDs. Follow these instructions at home: Medicines ??? Take cxgl-ave-vvfpqtu and prescription medicines only as told by your health care provider. ??? If you were prescribed an antibiotic medicine, take it as told by your health care provider. Do not stop taking the antibiotic even if you start to feel better. Alcohol use ??? Do not drink alcohol if: ? Your health care provider tells you not to drink. ? You are , may be , or are planning to become . ??? If you drink alcohol: ? Limit your use to: ? 0???1 drink a day for women. ? 0???2 drinks a day for men. ? Know how much alcohol is in your drink. In the [place] one drink equals one 12 oz bottle of beer (355 mL), one 5 oz glass of wine (148 mL), or one 1??? oz glass of hard liquor (44 mL). General instructions ??? Eat small, frequent meals instead of large meals. ??? Avoid foods and drinks that make your symptoms worse. ??? Talk with your health care provider about ways to manage stress, such as getting regular exercise or practicing deep breathing, meditation, or yoga. ??? Do not use any products that contain nicotine or tobacco. These products include cigarettes, chewing tobacco, and vaping devices, such as e-cigarettes. If you need help quitting, ask your health care provider. ??? Drink enough fluid to keep your urine pale yellow. ??? Keep all follow-up visits. This is important. Contact a health care provider if: ??? Your symptoms get worse. ??? Your abdominal pain gets worse. ??? Your symptoms return after treatment. ??? You have a fever. Get help right away if: ??? You vomit blood or a substance that looks like coffee grounds. ??? You have black or dark red stools. ??? You are unable to keep fluids down. These symptoms may represent a serious problem that is an emergency. Do not wait to see if the symptoms will go away. Get medical help right away. Call your local emergency services (911 in the [place] Do not drive yourself to the hospital. Summary ??? Gastritis is inflammation of the lining of the stomach that can occur suddenly (acute) or develop slowly over time (chronic). ??? This condition is diagnosed with a medical history, a physical exam, or tests. ??? This condition may be treated with medicines to treat infection or medicines to reduce the amount of acid in your stomach. ??? Follow your health care provider's instructions about taking medicines, making changes to your diet, and knowing when to call for help. This information is not intended to replace advice given to you by your health care provider. Make sure you discuss any questions you have with your health care provider. Document Revised: 03/08/2022 Document Reviewed: 03/08/2022 [employer] Patient Education ??? 2023 [employer]. Colonoscopy Care After Surgery Please read the [...] severe or gets worse throughout the day. Colon Polyps Colon polyps are tissue growths inside the colon, which is part of the large intestine. They are one of the types of polyps that can grow in the body. A polyp may be a round bump or a mushroom-shaped growth. You could have one polyp or more than one. Most colon polyps are noncancerous (benign). However, some colon polyps can become cancerous over time. Finding and removing the polyps early can help prevent this. What are the causes? The exact cause of colon polyps is not known. What increases the risk? The following factors may make you more likely to develop this condition: ??? Having a family history of colorectal cancer or colon polyps. ??? Being older than 45 years of age. ??? Being younger than 45 years of age and having a significant family history of colorectal cancer or colon polyps or a genetic condition that puts you at higher risk of getting colon polyps. ??? Having inflammatory bowel disease, such as ulcerative colitis or Crohn's disease. ??? Having certain conditions passed from parent to child (hereditary conditions), such as: ? Familial adenomatous polyposis (FAP). ? Phan syndrome. ? Turcot syndrome. ? Peutz???Jeghers syndrome. ? MUTYH-associated polyposis (MAP). ??? Being overweight. ??? Certain lifestyle factors. These include smoking cigarettes, drinking too much alcohol, not getting enough exercise, and eating a diet that is high in fat and red meat and low in fiber. ??? Having had childhood cancer that was treated with radiation of the abdomen. What are the signs or symptoms? Many times, there are no symptoms. If you have symptoms, they may include: ??? Blood coming from the rectum during a bowel movement. ??? Blood in the stool (feces). The blood may be bright red or very dark in color. ??? Pain in the abdomen. ??? A change in bowel habits, such as constipation or diarrhea. How is this diagnosed? This condition is diagnosed with a colonoscopy. This is a procedure in which a lighted, flexible scope is inserted into the opening between the buttocks (anus) and then passed into the colon to examine the area. Polyps are sometimes found when a colonoscopy is done as part of routine cancer screening tests. How is this treated? This condition is treated by removing any polyps that are found. Most polyps can be removed during a colonoscopy. Those polyps will then be tested for cancer. Additional treatment may be needed depending on the results of testing. Follow these instructions at home: Eating and drinking ??? Eat foods that are high in fiber, such as fruits, vegetables, and whole grains. ??? Eat foods that are high in calcium and vitamin D, such as milk, cheese, yogurt, eggs, liver, fish, and broccoli. ??? Limit foods that are high in fat, such as fried foods and desserts. ??? Limit the amount of red meat, precooked or cured meat, or other processed meat that you eat, such as hot dogs, sausages, fowler, or meat loaves. ??? Limit sugary drinks. Lifestyle ??? Maintain a healthy weight, or lose weight if recommended by your health care provider. ??? Exercise every day or as told by your health care provider. ??? Do not use any products that contain nicotine or tobacco, such as cigarettes, e-cigarettes, and chewing tobacco. If you need help quitting, ask your health care provider. ??? Do not drink alcohol if: ? Your health care provider tells you not to drink. ? You are , may be , or are planning to become . ??? If you drink alcohol: ? Limit how much you use to: ? 0???1 drink a day for women. ? 0???2 drinks a day for men. ? Know how much alcohol is in your drink. In the [place] one drink equals one 12 oz bottle of beer (355 mL), one 5 oz glass of wine (148 mL), or one 1??? oz glass of hard liquor (44 mL). General instructions ??? Take udoi-jok-viqzqvz and prescription medicines only as told by your health care provider. ??? Keep all follow-up visits. This is important. This includes having regularly scheduled colonoscopies. Talk to your health care provider about when you need a colonoscopy. Contact a health care provider if: ??? You have new or worsening bleeding during a bowel movement. ??? You have new or increased blood in your stool. ??? You have a change in bowel habits. ??? You lose weight for no known reason. Summary ??? Colon polyps are tissue growths inside the colon, which is part of the large intestine. They are one type of polyp that can grow in the body. ??? Most colon polyps are noncancerous (benign), but some can become cancerous over time. ??? This condition is diagnosed with a colonoscopy. ??? This condition is treated by removing any polyps that are found. Most polyps can be removed during a colonoscopy. This information is not intended to replace advice given to you by your health care provider. Make sure you discuss any questions you have with your health care provider. Document Revised: 02/20/2021 Document Reviewed: 02/20/2021 [employer] Patient Education ??? 2023 [employer]. Colitis Colitis is a condition in which the colon is inflamed. It can cause diarrhea, blood in the stool, and abdominal pain. Colitis can last a short time (be acute), or it may last a long time (become chronic). What are the causes? This condition may be caused by: ??? Infections from viruses or bacteria. ??? A reaction to medicine. ??? Certain autoimmune diseases, such as Crohn's disease or ulcerative colitis. ??? Radiation treatment. ??? Decreased blood flow to the bowel (ischemia). What are the signs or symptoms? Symptoms of this condition include: ??? Diarrhea, blood in the stool, or black, tarry stool. ??? Pain in the joints or abdominal pain. ??? Fever or fatigue. ??? Vomiting. ??? Weight loss. ??? Bloating. ??? Having fewer bowel movements than usual. ??? A strong and sudden urge to have a bowel movement. ??? Feeling like the bowel is not empty after a bowel movement. How is this diagnosed? This condition may be diagnosed based on a stool test and a blood test. You may also have other tests, such as: ??? X-rays. ??? CT scan. ??? Colonoscopy. ??? Endoscopy. ??? Biopsy. How is this treated? Treatment for this condition depends on the cause. This condition may be treated with: ??? Steps to rest the bowel, such as not eating or drinking for a period of time. ??? Fluids that are given through an IV. ??? Medicine for pain and diarrhea. ??? Antibiotic medicines. ??? Cortisone medicines. ??? Surgery. Follow these instructions at home: Eating and drinking ??? Follow instructions from your health care provider about eating or drinking restrictions. ??? Drink enough fluid to keep your urine pale yellow. ??? Work with a dietitian to determine whether certain foods cause your condition to flare up. ??? Avoid foods or drinks that cause flare-ups. ??? Eat a well-balanced diet. General instructions ??? If you were prescribed an antibiotic medicine, take it as told by your health care provider. Do not stop taking the antibiotic even if you start to feel better. ??? Take qvau-ijq-yprjhvv and prescription medicines only as told by your health care provider. ??? Keep all follow-up visits. This is important. Contact a health care provider if: ??? Your symptoms do not go away. ??? You develop new symptoms. Get help right away if: ??? You have a fever that does not go away with treatment. ??? You develop chills. ??? You have extreme weakness, fainting, or dehydration. ??? You vomit repeatedly. ??? You develop severe pain in your abdomen. ??? You pass bloody or tarry stool. Summary ??? Colitis is a condition in which the colon is inflamed. Colitis can last a short time (be acute), or it may last a long time (become chronic). ??? Treatment for this condition depends on the cause and may include resting the bowel, taking medicines, or having surgery. ??? If you were prescribed an antibiotic medicine, take it as told by your health care provider. Do not stop taking the antibiotic even if you start to feel better. ??? Get help right away if you develop severe pain in your abdomen. ??? Keep all follow-up visits. This is important. This information is not intended to replace advice given to you by your health care provider. Make sure you discuss any questions you have with your health care provider. Document Revised: 07/09/2021 Document Reviewed: 07/09/2021 [employer] Patient Education ??? 2023 [employer] Common Emergency Awareness Tips IS IT A STROKE? Act FAST and Check for these signs: FACE Does the face look uneven? ARM Does one arm drift down? SPEECH Does their speech sound strange? TIME Call at any sign of stroke Heart Attack Signs Chest discomfort: Most heart attacks involve discomfort in the center of the chest and lasts more than a few minutes, or goes away and comes back. It can feel like uncomfortable pressure, squeezing, fullness or pain. Discomfort in upper body: Symptoms can include pain or discomfort in one or both arms, back, neck, jaw or stomach. Shortness of breath: With or without discomfort. Other signs: Breaking out in a cold sweat, nausea, or lightheaded. Remember, MINUTES DO MATTER. If you experience any of these heart attack warning signs, call to get immediate medical attention! Patient Survey You may receive a survey in the mail asking you about your stay with us. We want to hear from you, please share your experience with us by completing your survey. Thank you for choosing [facility]. [facility] Award Nomination The KAI (Diseases Attacking the Immune SYstem) Award is an international recognition program that honors and celebrates the skillful, compassionate care nurses provide every day. Anyone who experiences or observes amazing care being provided by a nurse is encouraged to submit a nomination. To nominate your nurse, use your smart phone to scan the QR code below. Patient Portal You may access all of your results and other medical record information on our secure patient portal. If you are not signed up for this yet, please contact [employer] at [phone] to get signed up today. Language Information Language assistance services are available as needed. Patient Name: RIMMA JAM L I have received these discharge instructions and my questions have been answered. Patient/Pony Worker Name: Patient/Pony Worker Signature: Relationship to Patient: Witness Name/Signature: Date: Result Comment: Electronical ly Signed By: Jose RAMESH, Mary Lou\.br\Date and Time Signed: 05/11/25 09:53 EDT PROGRESS Observed: 02/14/2025 7:20 AM Status: COMPLETED Source: [facility] HNO ID: [id number] Author: DARRIAN DUBON MD Service: ? Author Type: Physician Type: Progress Notes Filed: 02/20/2025 17:28 Note Text: FOLLOW UP VISIT Patient's Name: Jam Erwin [facility] [id number] PCP: Jose L Lackey MD [address] [place] [phone] Consult Requested [place]: [place] [address] [place] [id number] Other physicians: Blender Laborer prev. Nel Lebron MD (his prev. shearing shed hand left- Ronald Brown MD) ; Now following [...] BRBPR and denies melena. He follows with Blender Laborer for his UC. [facility] has scopes this summer by his shearing shed hand. He is following with Orthopedics for his osteoarthroses and non-inflammatory joint pains. He has a chronic rotator cuff tear and extensive bilateral glenohumeral degenerative disease. His s/p b/l TKR and rt THR. Hissed rate was elevated at 79 04/2024 at time of his pneumonia. He continues on sulfasalazine and Entyvio by his shearing shed hand. 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 Has been on Humira since Sep 2020 (started with 80 mg loading dose and since has been on 40 mg every 2 wks) He was pleased with Enbrel response to his RA and later was switched to Humira, reports has similar benefit and is pleased with response. His shearing shed hand switched him to Humira for optimal mgt of IBD and he feels this has helped his IBD better. Reports still gets 8 BM's a day, does not have BM at night, does not have to wake up from sleep. Has been following with his shearing shed hand for his UC Had colonoscopy 11/22/2021 with reported marked improvement in asc/transv/desc colon and severe active in rectum, histopath with active colitis with erosions. States Dr. Lebron has started him on rectal enemas. Recent colonoscopy with reported active colitis. He tells me that he continues to have multiple BM's; His shearing shed hand prescribed pred. course, completed recently. No jt [...] us, he is on Humira per his Blender Laborer He is off Enbrel, was switched to Humira by his shearing shed hand. (previously was on Enbrel 25 mg twice a wk and has been in remission since on Enbrel and very pleased with his treatment regimen) He is on Humira 40 mg every 2 wks by his Blender Laborer He is on sulfasalazine, Humira and mesalamine enemas per his shearing shed hand I have reviewed benefits of a whole food plant based diet He consumes dairy, cheese, sausage, hamburger. I have advised him on avoiding meats and dairy and reviewed reports and patient experience with flare of IBD and RA, as well as gastrointestinal dysbiosis. I advised him on a whole foods plant based diet. He has a filler blender (nutriCubikalet XL) and interested in making healthy smoothies [...] in this patient with known rheumatoid arthritis. Urgent Care Technician: CODY Transcribe Date/Time: Feb 20 2021 9:52A [...] where has fallen arch. Has seen Manager Truck in the remote past for the fallen arch, not recently. Feels gets stiff when not moving as much. Denies any injury or trauma. Denies any pain to me today States his shearing shed hand has prescribed prednisone course due to IBD flare States after scope was told is flared. He is on sulfasalazine and budesonide and his shearing shed hand and since has switched him from Enbrel [...] Alk phos isoenz: liver fraction; followed by shearing shed hand He follows with his shearing shed hand for hi elev alk phos and AST and for bld with stools, Dr Brown: and states he started him on iron supplement States Dr. Brown prescribed metronidazole, for reported diarrhea. States felt it made a difference. [facility] he gave him enemas and told that is for his ulcerative colitis and prescr. sulfasalazine. In 2019, has also followed with his shearing shed hand for blood with stools, and had flex sig and told he was inflamed from his Ulcerative colitis. had colonosc and EGD in 2018 and was told were good. Told his bld in stools from his UC and patient states notices also mucus when wipes. had increased his sulfasalazine dose. [facility] also notices that dairy and cheese [...] systems reviewed and are negative DXA Model: 39 Health W [id number] SITE SCANNED: Lumbar spine and left hip [...] were all normal. He follows with his shearing shed hand for his ulcerative colitis and is on sulfasalazine. He was told by his shearing shed hand to avoid sun exposure due to this med, had skin itching last summer. He had evaluation for elevated AST and alk phos. Alk phos has improved and AST has been borderline elevated. I have advised him to f/u with his shearing shed hand for his elevated alk phos (liver fraction) States his shearing shed hand did an US of his liver twice and was told was normal. He denies any alcohol consumption or acetaminophens. His isoenzyme indicated predom. of liver origin. The patient reports that his shearing shed hand completed evaluation and told his liver is fine. His liver US was unremarkable . His anemia has resolved since his UC has been controlled. States saw his shearing shed hand, Dr. Lebron, recently and states told him [...] and denies hematuria or dysuria. DXA Model: 39 Health W [id number] SITE SCANNED: Lumbar spine and left hip [...] reports doing well, states not bad . [facility] has seen a laboratory apparatus glass grinder in the past, in [place], Dr. Whitfield. States used to be on [...] 500mg q 6hrs. Reports benefit and his shearing shed hand took him off the iron supplement as [...] Dactylitis: no H/o precedent/frequent infection(s): as above Enthesopathy/[place]'s/heel/plantar tenderness: no Skin thickening, psoriasis, photosensitivity, purpura: no Nail changes: no Alpecia, patchy: no; has MPB Eye inflammation: no SICCA: no Oral/nasal/genital ulcers: no GI problems-diarrhea/bleeding/IBD/Gluten intolerence/Dysphagia: as above Raynaud's phenomenon/digital ulcers: no Organ inv-Serositis: no Lung disease/ILD: no Myopathy/proximal muscle weakness: no Abnormal Urine or urethritis: no Renal disease: no CARGO AND RAMP SERVICES MANAGER/PNS disease: no and denies MS HEME-Cytopenias/LAD/Clots: [...] Status: Single denies children 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 Lackey Smoking: quit 2012 Alcohol as above IVDU: denies Industrial toxic exposures: denies FAMILY HISTORY: No family history on file. suspects his mother may have had RA Mother: CAD, CABG, COPD/emphysemia Father: passed from [facility] bother were smokers PERTINENT TESTS: Component Latest [...] Abs Lymph 1.00 - 4.00 k/uL 3.02 [place]% 9.7 Abs [place] 0.00 - 0.86 k/uL 0.79 Eosin% 0.0 [...] Negative Negative Ketones, Urine Negative Negative Specific [place], Ur 1.005 - 1.030 1.008 Hemoglobin/Blood,Ur Negative 3+ (A) pH, Urine 4.5 - 8.0 6.0 Protein, Urine Negative mg/dL Negative Urobilinogen Normal Normal Nitrites Negative Negative Leukest Negative Negative Comments SEE COMMENT Urine Adan Comment SEE COMMENT WBC, Urine 0 - 5 /HPF 0-5 RBC, Urine 0 - 3 /HPF >25 (A) Sm Antibody <1.0 AI <0.2 TOP LOADER Antibody <1.0 AI 1.2 (H) SSA Antibody <1.0 AI <0.2 SSB Antibody <1.0 AI <0.2 Centromere Ab <1.0 AI <0.2 Scleroderma Ab, IgG <1.0 AI <0.2 Milagro 1 Antibody <1.0 AI <0.2 Ribosomal TOP LOADER <1.0 AI <0.2 Chromatin Antibody <1.0 AI [...] Arthritis findings and DJD. Latest Ref Rng AND Units 01/17/2020 08/22/2020 12/01/2023 01/12/2024 CBC WBC [...] 1.18 1.38 2.11 1.84 Latest Ref Rng AND Units 01/17/2020 08/22/2020 12/01/2023 01/12/2024 CMP Sodium [...] U/L 135 171 211 Latest Ref Rng AND Units 01/26/2020 08/22/2020 Uric Acid Uric Acid 4.0 - 8.1 mg/dL 6.3 4.4 Latest Ref Rng AND Units 12/01/2023 01/12/2024 ESR, WSR WSR 0 - 15 mm/hr 114 34 Latest Ref Rng AND Units 12/01/2023 01/12/2024 CRP CRP <0.9 mg/dL 3.9 0.4 Latest Ref Rng AND Units 08/29/2015 RF and CCP Rheumatoid Factor <20 IU/mL 406 CCP Antibody, IgG <20 Units >250 Latest Ref Rng AND Units 08/29/2015 12/01/2023 Hepatitis Screen Hep B [...] Negative Negative Negative Negative Latest Ref Rng AND Units 08/29/2015 01/26/2020 Antibodies KURT Negative Positive KURT Titer Negative 1:80 KURT Pattern Atypical speckled DNA Antibody w/Confirmation <30 IU/mL <12 Sm Antibody <1.0 AI <0.2 Ribosomal TOP LOADER <1.0 AI <0.2 Chromatin Antibody <1.0 AI <0.2 SSA Antibody <1.0 AI <0.2 SSB Antibody <1.0 AI <0.2 TOP LOADER Antibody <1.0 AI 1.2 Scleroderma Ab, IgG <1.0 AI <0.2 Centromere Ab <1.0 AI <0.2 MILAGRO-1 ANTIBODY, IGG <1.0 AI <0.2 PT Sec 9.7 - 13.0 sec 10.3 PT INR 0.9 - 1.3 1.0 APTT 23.0 - 32.4 sec 25.4 Latest Ref Rng AND Units 08/29/2015 Urinalysis Protein, Urine Negative mg/dL Negative RBC, Urine 0 - 3 /HPF >25 Latest Ref Rng AND Units 08/29/2015 TPMT amd G6PD G6PD Scn [...] FINDINGS CONSISTENT WITH CHRONIC SEVERE RHEUMATOID ARTHRITIS. Urgent Care Technician: [facility] Transcribe Date/Time: Aug 29 2015 12:56P ... Last XR Ankle - Impression Only XR ANKLE GENERAL 3V AP/LAT/OBL LT Exam End: 02/20/2021 8:42 AM (Final result) Impression: IMPRESSION: Arthritic changes demonstrating interval progression in this patient with known rheumatoid arthritis. Urgent Care Technician: CODY Transcribe Date/Time: Feb 20 2021 9:52A [...] its performance characteristics determined by [facility]'s [facility] Pathology [facility] [place] ([facility] It has not been cleared or approved by the FDA. -[facility] is regulated under CLIA as qualified [...] 147 53 - 334 mg/dL Final MPA [place], Serum Date Value Ref Range Status 08/19/2018 1,020 534 - 1,267 mg/dL Final MPA Lambda, Serum Date Value Ref Range Status 08/19/2018 551 253 - 653 mg/dL Final MPA [place]/Lambda Ratio Date Value Ref Range Status [...] , Gender: Male SCANNER INFORMATION: DXA Model: 39 Health W [id number] SITE SCANNED: Lumbar spine and left hip [...] www.nof.org International Society of Clinical Densitometry www.iscd.org Urgent Care Technician: [id number] Transcribe Date/Time: Sep 23 2022 10:28A Dictated [...] kg (174 lb 2.6 oz) BMI 28.12 kg/m? afebrile, VSS General Appearance: WD/WN, NAD. Appropriate [...] in patient's severe chronic Rheumatoid Arthritis. His shearing shed hand has switched him to Humira as he [...] to receive intermittent steroid therapy from his shearing shed hand. Pharmacologic therapy is still indicated and recommended, [...] Also receives labs per Primary care physician/ Blender Laborer Recheck DXA scheduled 05/2025 -The patient's shearing shed hand follows him for his UC, anemia and liver tests. He is on Entyvio and sulfasalazine per his Blender Laborer RA med: none from rheum, doing well on sulfasalazine, prescribed by GI (He was prev. on Enbrel 25 mg sq twice a week, or may switch to Humira if his shearing shed hand switched him to Humira TNF inhibitor therapy, [...] on sulfasalazine for his IBD per his shearing shed hand OP med: Received Reclast infusion, 5 mg IV on 05/09/2024 well tolerated Further infusions will be determined based on recheck DXA and CTX, or if on systemic steroids. As previously discussed, his OP med of choice is IV Reclast Oral bisphosphonate contraindicated due to his IBD and gastrointestinal disease. Osteoporosis was likely due to previous [facility]p steroid therapy by other physicians over the [...] atypical and subtroch. fracture of femur with [facility] use of bisphosphonates/alendronate and anti-resorptive agents, there [...] wished to proceed. Previous orders -CONSULT TO REGULATORY MANAGER -CONSULT TO PODIATRY Provided referral to OT for assistive devices, exercises to preserve left function Referral to supervisor gas meter repair for foot/ankle deformities and callus care, inserts/braces/orthotics, [...] spent included preparing to see the patient, [id number] patient care, completing clinical documentation, obtaining and/or [...] appropriate immunization recommended. -Continued follow up with shearing shed hand for IBD management and monitoring for liver [...] Darrian Fischer MD Jose L Lackey MD [address] [place] [address] Medical Decision Making: Problems: Moderate: 2+ stable chronic illnesses Data: Unique source(s) for external note(s) reviewed: 3+ Unique test result(s) reviewed: 3+ Medical Decision Making Level: 4 - Moderate CNOV Observed: 02/14/2025 7:20 AM Status: COMPLETED Source: [facility] Office Visit (ANGEL) JAM TOSCANO ([id number]) 1965 M Date Time Provider Department 02/14/25 7:20 AM DARRIAN DUBON During your visit today, we recorded the following information about you: Pulse Blood pressure Weight 66/minute 134/74 79 kg Darrian Dubon MD 02/20/2025 5:28 PM Signed FOLLOW UP VISIT Patient's Name: Jam Erwin [facility] [address] PCP: Jose L Lackey MD [address] [place] [address], [place] [phone] Consult Requested by: Jose L Lackey MD [facility] [address] Other physicians: Blender Laborer prev. Nel Lebron MD (his prev. shearing shed hand left- Ronald Brown MD) ; Now following [...] BRBPR and denies melena. He follows with Blender Laborer for his UC. States has scopes this summer by his shearing shed hand. He is following with Orthopedics for his osteoarthroses and non-inflammatory joint pains. He has a chronic rotator cuff tear and extensive bilateral glenohumeral degenerative disease. His s/p b/l TKR and rt THR. Hissed rate was elevated at 79 04/2024 at time of his pneumonia. He continues on sulfasalazine and Entyvio by his shearing shed hand. 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 Has been on Humira since Sep 2020 (started with 80 mg loading dose and since has been on 40 mg every 2 wks) He was pleased with Enbrel response to his RA and later was switched to Humira, reports has similar benefit and is pleased with response. His shearing shed hand switched him to Humira for optimal mgt of IBD and he feels this has helped his IBD better. Reports still gets 8 BM's a day, does not have BM at night, does not have to wake up from sleep. Has been following with his shearing shed hand for his UC Had colonoscopy 11/22/2021 with reported marked improvement in asc/transv/desc colon and severe active in rectum, histopath with active colitis with erosions. States Dr. Lebron has started him on rectal enemas. Recent colonoscopy with reported active colitis. He tells me that he continues to have multiple BM's; His shearing shed hand prescribed pred. course, completed recently. No jt [...] us, he is on Humira per his Blender Laborer He is off Enbrel, was switched to Humira by his shearing shed hand. (previously was on Enbrel 25 mg twice a wk and has been in remission since on Enbrel and very pleased with his treatment regimen) He is on Humira 40 mg every 2 wks by his Blender Laborer He is on sulfasalazine, Humira and mesalamine enemas per his shearing shed hand I have reviewed benefits of a whole food plant based diet He consumes dairy, cheese, sausage, hamburger. I have advised him on avoiding meats and dairy and reviewed reports and patient experience with flare of IBD and RA, as well as gastrointestinal dysbiosis. I advised him on a whole foods plant based diet. 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 Urgent Care Technician: CODY Transcribe Date/Time: Feb 20 2021 9:52A [...] , feels needs to pull bones apart. [facility] is [facility]. Has seen Manager Truck in the remote past for the fallen arch, not recently. Feels gets stiff when not moving as much. Denies any injury or trauma. Denies any pain to me today States his shearing shed hand has prescribed prednisone course due to IBD flare States after scope was told is flared. He is on sulfasalazine and budesonide and his shearing shed hand and since has switched him from Enbrel [...] Alk phos isoenz: liver fraction; followed by shearing shed hand He follows with his shearing shed hand for hi elev alk phos and AST and for bld with stools, Dr Brown: and states he started him on iron supplement States Dr. Brown prescribed metronidazole, for reported diarrhea. [facility] felt it made a difference. [facility] he gave him enemas and told that is for his ulcerative colitis and prescr. sulfasalazine. In 2018, has also followed with his shearing shed hand for blood with stools, and had flex sig and told he was inflamed from his Ulcerative colitis. [facility] had colonosc and EGD in 2017 and was told were good. Told his bld in stools from his UC and patient states notices also mucus when wipes. [facility] had increased his sulfasalazine dose. [facility] also notices that dairy and cheese caused really bad inflammation from these and has avoided since. [facility] also avoids coffee and consumes green [...] systems reviewed and are negative DXA Model: 39 Health W [id number] SITE SCANNED: Lumbar spine and left hip [...] were all normal. He follows with his shearing shed hand for his ulcerative colitis and is on sulfasalazine. He was told by his shearing shed hand to avoid sun exposure due to this med, had skin itching last summer. He had evaluation for elevated AST and alk phos. Alk phos has improved and AST has been borderline elevated. I have advised him to f/u with his shearing shed hand for his elevated alk phos (liver fraction) States his shearing shed hand did an US of his liver twice and was told was normal. He denies any alcohol consumption or acetaminophens. His isoenzyme indicated predom. of liver origin. The patient reports that his shearing shed hand completed evaluation and told his liver is fine. His liver US was unremarkable . His anemia has resolved since his UC has been controlled. States saw his shearing shed hand, Dr. Lebron, recently and states told him [...] and denies hematuria or dysuria. DXA Model: 39 Health W [id number] SITE SCANNED: Lumbar spine and left hip [...] states not bad . has seen a laboratory apparatus glass grinder in the past, in [place], Dr. Whitfield. used to be on Remicade [...] 500mg q 6hrs. Reports benefit and his shearing shed hand took him off the iron supplement as his iron was good. [facility] has advised him to avoid all nsaids and recently had discontinued his Celebrex. 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 Lackey Smoking: quit [...] Abs Lymph 1.00 - 4.00 k/uL 3.02 [place]% 9.7 Abs [place] 0.00 - 0.86 k/uL 0.79 Eosin% 0.0 [...] Negative Negative Ketones, Urine Negative Negative Specific [place], Ur 1.005 - 1.030 1.008 Hemoglobin/Blood,Ur Negative 3+ (A) pH, Urine 4.5 - 8.0 6.0 Protein, Urine Negative mg/dL Negative Urobilinogen Normal Normal Nitrites Negative Negative Leukest Negative Negative Comments SEE COMMENT Urine Adan Comment SEE COMMENT WBC, Urine 0 - 5 /HPF 0-5 RBC, Urine 0 - 3 /HPF >25 (A) Sm Antibody <1.0 AI <0.2 TOP LOADER Antibody <1.0 AI 1.2 (H) SSA Antibody <1.0 AI <0.2 SSB Antibody <1.0 AI <0.2 Centromere Ab <1.0 AI <0.2 Scleroderma Ab, IgG <1.0 AI <0.2 Milagro 1 Antibody <1.0 AI <0.2 Ribosomal TOP LOADER <1.0 AI <0.2 Chromatin Antibody <1.0 AI [...] Arthritis findings and DJD. Latest Ref Rng AND Units 01/17/2020 08/22/2020 12/01/2023 01/12/2024 CBC WBC [...] 1.18 1.38 2.11 1.84 Latest Ref Rng AND Units 01/17/2020 08/22/2020 12/01/2023 01/12/2024 CMP Sodium [...] U/L 135 171 211 Latest Ref Rng AND Units 01/26/2020 08/22/2020 Uric Acid Uric Acid 4.0 - 8.1 mg/dL 6.3 4.4 Latest Ref Rng AND Units 12/01/2023 01/12/2024 ESR, WSR WSR 0 - 15 mm/hr 114 34 Latest Ref Rng AND Units 12/01/2023 01/12/2024 CRP CRP <0.9 mg/dL 3.9 0.4 Latest Ref Rng AND Units 08/29/2015 RF and CCP Rheumatoid Factor <20 IU/mL 406 CCP Antibody, IgG <20 Units >250 Latest Ref Rng AND Units 08/29/2015 12/01/2023 Hepatitis Screen Hep B [...] Negative Negative Negative Negative Latest Ref Rng AND Units 08/29/2015 01/26/2020 Antibodies KURT Negative Positive KURT Titer Negative 1:80 KURT Pattern Atypical speckled DNA Antibody w/Confirmation <30 IU/mL <12 Sm Antibody <1.0 AI <0.2 Ribosomal TOP LOADER <1.0 AI <0.2 Chromatin Antibody <1.0 AI <0.2 SSA Antibody <1.0 AI <0.2 SSB Antibody <1.0 AI <0.2 TOP LOADER Antibody <1.0 AI 1.2 Scleroderma Ab, IgG <1.0 AI <0.2 Centromere Ab <1.0 AI <0.2 MILAGRO-1 ANTIBODY, IGG <1.0 AI <0.2 PT Sec 9.7 - 13.0 sec 10.3 PT INR 0.9 - 1.3 1.0 APTT 23.0 - 32.4 sec 25.4 Latest Ref Rng AND Units 08/29/2015 Urinalysis Protein, Urine Negative mg/dL Negative RBC, Urine 0 - 3 /HPF >25 Latest Ref Rng AND Units 08/29/2015 TPMT amd G6PD G6PD Scn [...] FINDINGS CONSISTENT WITH CHRONIC SEVERE RHEUMATOID ARTHRITIS. Urgent Care Technician: KETTY Transcribe Date/Time: Aug 29 2015 12:56P ... Last XR Ankle - Impression Only XR ANKLE GENERAL 3V AP/LAT/OBL LT Exam End: 02/20/2021 8:42 AM (Final result) Impression: IMPRESSION: Arthritic changes demonstrating interval progression in this patient with known rheumatoid arthritis. Urgent Care Technician: CODY Transcribe Date/Time: Feb 20 2021 9:52A [...] its performance characteristics determined by [facility]'s Rajeev Nasim [facility] Pathology and Laboratory Medicine [place] ([facility]). It has not been cleared or approved by the FDA. [facility] is regulated under CLIA as [...] 147 53 - 334 mg/dL Final MPA [place], Serum Date Value Ref Range Status 08/19/2018 1,020 534 - 1,267 mg/dL Final MPA [place]ambda, Serum Date Value Ref Range Status 08/19/2018 551 253 - 653 mg/dL Final MPA [place]/Lambda Ratio Date Value Ref Range Status [...] , Gender: Male SCANNER INFORMATION: DXA Model: 39 Health W [id number] SITE SCANNED: Lumbar spine and left hip [...] machine for accurate comparison. FOR MORE INFORMATION: [facility]: www.ccf.org/arthritis/osteo National Osteoporosis Foundation: www.nof.org International Society of Clinical Densitometry www.iscd.org Urgent Care Technician: [id number] Transcribe Date/Time: Sep 23 2022 10:28A Dictated [...] kg (174 lb 2.6 oz) BMI 28.12 kg/m? afebrile, VSS General Appearance: WD/WN, NAD. Appropriate [...] in patient's severe chronic Rheumatoid Arthritis. His shearing shed hand has switched him to Humira as he [...] to receive intermittent steroid therapy from his shearing shed hand. Pharmacologic therapy is still indicated and recommended, [...] Also receives labs per Primary care physician/ Blender Laborer Recheck DXA scheduled 05/2025 -The patient's shearing shed hand follows him for his UC, anemia and liver tests. He is on Entyvio and sulfasalazine per his Blender Laborer RA med: none from rheum, doing well on sulfasalazine, prescribed by GI (He was prev. on Enbrel 25 mg sq twice a week, or may switch to Humira if his shearing shed hand switched him to Humira TNF inhibitor therapy, [...] on sulfasalazine for his IBD per his shearing shed hand OP med: Received Reclast infusion, 5 mg IV on 05/09/2024 well tolerated Further infusions will be determined based on recheck DXA and CTX, or if on systemic steroids. As previously discussed, his OP med of choice is IV Reclast Oral bisphosphonate contraindicated due to his IBD and gastrointestinal disease. Osteoporosis was likely due to previous mcfp steroid therapy by other physicians over the [...] atypical and subtroch. fracture of femur with exterminator helper use of bisphosphonates/alendronate and anti-resorptive agents, [...] wished to proceed. Previous orders -CONSULT TO REGULATORY MANAGER -CONSULT TO PODIATRY Provided referral to OT for assistive devices, exercises to preserve left function Referral to supervisor gas meter repair for foot/ankle deformities and callus care, inserts/braces/orthotics, [...] spent included preparing to see the patient, oqti-uh-risu patient care, completing clinical documentation, obtaining and/or [...] appropriate immunization recommended. -Continued follow up with shearing shed hand for IBD management and monitoring for liver [...] Fischer MD Jose L Lackey MD [address] [facility] [address] Medical Decision Making: Problems: Moderate: 2+ stable chronic illnesses Data: Unique source(s) for external note(s) reviewed: 3+ Unique test result(s) reviewed: 3+ Medical Decision Making Level: 4 - Moderate Darrian Dubon MD 02/14/2025 7:41 AM Addendum -PLEASE NOTE THAT WE REVIEW ALL YOUR TEST RESULTS AT YOUR NEXT FOLLOW UP VISIT WITH YOU. IF ANY ABNORMAL LAB REQUIRES SOONER ATTENTION, WE WILL CONTACT YOU. -If you have signed up on [address], we will release your test results through [address]. I wish you the best of health [...] track your nutrition and calcium intake on www.PlastiPure.MalibuIQ This provides macro and micronutrient intake and requirements. - You can track your calcium intake on [employer] Japanometer.MalibuIQ or any other calcium tracker of your [...] youtube and copy and paste this link: https://youtu.be/[email or web address] This is done by a Physical Medicine and Rehab doctor who is a social work professor in [facility] [facility]. She completed a PhD at the [employer]. I hope you find it helpful. Please take precautions and start gradual when starting a new exercise program. Another reference includes this one: -Dominique RM, Peg Desai J, eN RL, Agustin SF, Judy EW. Exercise for the prevention of osteoporosis in postmenopausal women: an evidence-based guide to the optimal prescription. Thor J Desktop Support Associate. 2019 Jan-Feb;23(2):170-180. doi: 10.1016/j.bjpt.2018.11.011. Epub 2017Oct 07. PMID: 08308616; PMCID: [id number]. - Stress can lead to bone loss. [...] hazelnuts, legumes, soybeans and other beans) - Nokomis (potatoes, avocados, almonds, peanuts) - Chromium (broccoli, [...] health? Ther Adv Musculoskelet Dis. 2010;3(6):293-300. doi: 10.1177/8773285M90711758. PMID: 43911230; PMCID: [id number]. -SUDHEER Carrillo., NYLA Dodson., GHAZAL Flores. et al. Soy isoflavone intake inhibits bone resorption and stimulates bone formation in menopausal women: meta-analysis of randomized controlled trials. Eur J Clin Nutr 62, 155-161 (2007). https://doi.org/10.1038/sj.ejcn.4216972 -Clyde Rosa, Trisha Lara, Harry De Leon. et al. Isoflavone intervention and its impact on bone mineral density in postmenopausal women: a systematic review and meta-analysis of randomized controlled trials. Osteoporos Int (2022). https://doi.org/10.1007/a38327-710-00234-w -Jack Finch, Trisha Lara, Clyde Grant et al. Effects of isoflavone interventions on bone mineral density in postmenopausal women: a systematic review and meta-analysis of randomized controlled trials. Osteoporos Int 31, 8423-2688 (2020). https://doi.org/10.1007/n53731-922-13013-j - Benefits of consuming soy in whole foods are listed in this article at the PCRM website: https://www.pcrm.org/good-nutrition/nutrition-information/iev-alh-amvaba - Prunes have been reported to help with bone density and inflammation, and are also beneficial for the gut microbiome and constipation. -The Prune Study article: Perrin, Sivakumar ADLANA, Jordy NI, Edouard H, Flor KJ, Trey C, Praveena MG, Ara CH, Terry C. Prunes preserve hip bone mineral density in a 12-month randomized controlled trial in postmenopausal women: the Prune Study. Am J Clin Nutr. 2021Aug 21;116(4):897-910. doi: 10.1093/ajcn/jovy184. PMID: 04922667. -Benefit to bone density and inflammation: Hebert WYMAN, Perrin, Glory SOLARES, Sivakumar ALDANA, Trey CUBA. The Role of Prunes in Modulating Inflammatory Pathways to Improve Bone Health in Postmenopausal Women. Adv Nutr. 2021Aug 17;13(5):3477-0953. doi: 10.1093/advances/bxle517. PMID: 14482582; PMCID: JUT5974279. - Information on Vitamin K2: more recently [...] with the exception of Natto (a traditional Somali food made from fermented soybeans) has high [...] of these foods, please consult with your Cyber Intelligence Analyst or Physician first. Review of Osteoporosis medications [...] can read more at these [facility] web links: https://my.[facility].org/health/treatments/85574-etgqajjcelsepuv For Fosamax/alendronate: https://my.[facility].org/health/drugs/50232-qpusykokdrm-volnatn For Actonel/risedronate: https://my.[facility].org/health/drugs/36404-pbsciepjuqs-izot-mzrnnbq For Reclast/zoledronic acid: https://my.[facility].org/health/drugs/54674-pobriqzhvq-wras-uswzshyon-uva- rvz-ihvspdx-zkvhhalectra -Subcutaneous Prolia: this is one injection every 6 months, given by the nurse in the office. This medication is given mcfp, indefinitely. Prolia should not be discontinued without [...] looked into transition therapy. Recent study from [facility] Slim et al, 04/11/2020 (PMID: 83846884.The study is ongoing, clinicaltrials.gov; [id number]), reported one infusion of IV Reclast did [...] can read more at these [facility] web links: https://my.[facility].org/health/drugs/58852-deygdpksl-lphjumzvj Medications that build bone density and prevent [...] can read more at these [facility] web links: For Forteo/teriparatide: https://my.[facility].org/health/drugs/18254-jffnjtxnaalh-dezwuwruv For Tymlos/abaloparatide: https://my.[facility].org/health/drugs/17409-ntxomlhhsccju-pkewrubih Medication that both prevents bone loss and [...] initiated in patients who have had an UT or stroke in the preceding year or those considered high risk. We may need a clearance from a Assayer Helper prior to proceeding with this medication in patients who have a cardiovascular disease history. This is only prescribed for 1 year and then needs to be followed by anti-resorptive therapy, according to recommendations. You can read more at these [facility] web links: For Evenity/romosozumab: https://my.[facility].org/health/drugs/87867-chjlkxqzqjo-qlljhwivn Other less potent Osteoporosis medications, such as [...] available medications were provided: Link to the [place] [employer] website at: https://www.rheumatology.org/I-Am-A/Patient-Caregiver/Diseases-Conditions/Osteo- porosis Link to the [facility] web link at: On Osteoporosis: https://my.[facility].org/health/diseases/4443-osteoporosis On Osteopenia: https://my.[facility].org/health/diseases/11101-xhuighqljj - Additional information on Bone Health and [...] swallow - They should dissolve easily in ? cup of vinegar in < 15 minutes. [...] Osteoporosis Foundation) http://www.osteo.org/osteolinks.asp National Institutes of Health: 6-457-135-BONE The Calcium Information Center: Non-Dairy, Plant based Milk, can contain in1 glass up to 450 mg of calcium (300 to 450 mg) Exampled include Oat Milk, Flax Milk, Seaman Milk, Cashew Milk, Soy Milk, Peas Milk Examples of Food Sources of Calcium from NIH Food Milligrams (mg) per serving Percent DV* Soymilk, calcium-fortified, 8 ounces 299 30 Salkum juice, calcium-fortified, 6 ounces 261 26 Tofu, firm, made with calcium sulfate, ? cup* 253 25 Tofu, soft, made with calcium sulfate, ? cup* 138 14 Mnnmk-vk-uye cereal, calcium-fortified, 1 cup 100-1,000 10-100 Turnip greens, fresh, boiled, ? cup 99 10 Kale, raw, chopped, 1 cup 100 10 Kale, fresh, cooked, 1 cup 94 9 Monegasque cabbage, bok marin, raw, shredded, 1 cup 74 7 Bread, white, 1 slice 73 7 Tortilla, corn, zbiyi-mr-rqis/marshall, one 6? diameter 46 5 Tortilla, flour, jbydy-gw-zhac/marshall, one 6? diameter 32 3 Bread, whole-wheat, 1 slice 30 3 Broccoli, raw, ? cup 21 2 * DV = Daily Value. DVs were developed by the U.S. Food and Drug Administration to help consumers compare the nutrient contents among products within the context of a total daily diet. The U.S. Department of Agriculture?s (USDA?s) Nutrient Database Web site lists the nutrient [...] daily with a meal; Certain patients require 2099-7124 international units daily and in patients deficient [...] bones. Studies show approximately 50% of [place] men and women are vitamin D deficient [...] Additional Information is available from: [facility] Osteoporosis Information: https://my.[facility].org/departments/orthopaedics-rheumatology/depts/oste- oporosis-metabolic The Bone Health and Osteoporosis Foundation (formerly the National Osteoporosis Foundation) : https://www.bonehealthandosteoporosis.org International Osteoporosis Foundation: https://www.osteoporosis.foundation http://ods.od.nih.gov/factsheets/vitamind.asp National Institutes of Health: 4-794-526-BONE The Calcium Information Child[place]: I recommend following a healthy lifestyle. You [...] track your nutrition and calcium intake on www.PlastiPure.MalibuIQ This provides macro and micronutrient intake and [...] that features the Whole Plant Based diet, [place] over knives (see video online and visit website). Another movie that was recently released is: Eating You Alive (you can find it at [employer]) and The Game Changers movie Dr. Fauzia Ansari is a [facility] physician who has done research and published books, is an expert in Whole Plant based diet for prevention and reversal of heart disease. His website is [employer]. His research highlights the benefits of the Whole food plant based diet in reversing and preventing heart disease. Mrs. Cookie Ansari (his ) has a cookbook with many recipes on whole plant based food: The Prevent and Reverse Heart Disease cookbook. oCokie and Yamile Ansari have a cooking show on YouTube called: Plant-Based with Yamile Ansari and Cookie Ansari. You can also consider reading his son, Eze Ansari's book: The Engine 2 cookbook Eze is a retired silk screen printer who has helped many people get healthier [...] multiple free videos and YouTube, for example: https://youBright.mdu.be/yigNorrZ8l9 , https://youtu.be/SgNIKbayz7i He has written multiple books, including [employer] for the Brain, The Cheese Trap, Dr. Rock Velazco's Program for Reversing Diabetes, Your Body in Balance You can also watch YouTube channel : The Doc AND Parts Classifier Dr. Anthony Carlson has shown the benefit of a starch based whole food plant based diet to his Rheumatoid Arthritis patients, as well as patient with diabetes II, hypertension, obesity, multiple sclerosis, heart disease, acne, and other, his website: www.BloggersBase.MalibuIQ Dr. Yayo Allred is a renowned bioinformatics computer scientist, who has studied and researched the benefits of the Whole plant based diet. He has also researched the adverse effects of animal proteins on health. He presents many of his research findings in his book The [place] study. Dr. Gerber Becker has completed many research trials proving the reversal of diseases, such as heart disease and early prostate cancer, with healthy lifestyle and the Whole Plant based diet. Dr. Gerber Becker website is: www.carmenElectro-LuminX.MalibuIQ His new book: Undo It, has evidence [...] videos and YouTube, for example https://youtu.be/aSgNkhgVtks and https://youBright.mdu.be/lXXXygDRyBU. He has written multiple books including: How Not To and How Not To Diet He is now working on his next book: How Not To Age Dr. Danitza Dash (from the [facility]), has articles on the following website: Spotistic.MalibuIQ For additional ideas on recipes, you could find additional information on practical to follow recipes by reading or watching online and YouTube such as: Chef BELLE, Cooking With Plants, The Vegan Corner (recipes from an Congolese Parts Classifier), The Whole Foods Plant Based Cooking Show and visiting the provided websites for additional information on the whole plant based benefit and cooking recipes. You can also consider watching the vlogs of some of the plant based Athletes such as Fausto Ewing Derek on [employer]. You can find very good recipes for [...] Dr. Ignacio Degroot Lifestyle Medicine (is a Assayer Helper and Lifestyle Medicine Physician) -Sometimes it helps to start with a simple diet of potatoes, that Dr. Carlson calls Patricias Mini. You can learn more about that in his website: www.RealtyAPX This is the website for Yarelis Butler pdf : https://www.RealtyAPX/wp-content/uploads//Georgiana-Mini_Website_Print- _Version-1.pdf You can also read more on Dr. Carlson's website - When you goal is to lose weight, it is important to listen to your hunger cues. Don't eat until you are stuffed. As soon as you feel you are no longer hungry, stop eating. There is a Somali saying that says Tammie Vega, meaning eat until you are 80% full. I say avoid eating past 80% of your stomach fullness. This originated from the city of [facility], which is one of the sites reported in the [place] book, one of the highest cities in the world for having the most centenarians. Remember your stomach needs space and capacity for proper digestion of your food. Like a non food receiving clerk or a filler blender, they have a limit for proper function, and should not be filled to the top. You can read more about that from the [facility] article Don?t Eat Until You?re Full ? Instead, Mind Your Tammie Borges , at https://health.[facility].org/dmee-wkg-zemww-yrtqe-qojo-ghyzash-mind-your-- eqlm-hopof-nh-annie/ Most plants contain proteins and all essential [...] also important to ensure they are 3rd constitution party tested to avoid contaminants. You can [...] you will need to consult with a shearing shed hand to have further evaluation to exclude Celiac [...] - Gentle Yoga Anyone Can Do Anywhere www.InfoDif.MalibuIQ/yoga Also on youtube: yoga with Karlie For women, especially after menopause, strength training is important. You can read more on that from Clare Morley, PhD at her website https://www.GoEuro and YouTube videos. If you are a beginner, it is best to start with a physical therapist or interpersonal communications professor. There are also several [facility] that offer virtual personal training 3- Good Sleep (poor sleep impacts everything, recommended sleep is 7 to 8 hrs. a night). Certain people may need more sleep, depending on their age and other conditions. Meditation and relaxation techniques have shown to help with improving sleep. Try to be consistent with your sleep. You can find more at the [facility] Website on : https://my.[facility].org/departments/wellness/store/go-well#sleep-tab 4- Stress management, be happy, laugh [...] Timer Meditation Stress Free Now ([facility]). You can find more resources at the [facility] website at : https://my.[facility].org/departments/wellness/store/go-well#tmwvyz-kkwq-b- ab There are many free youtube videos on guided meditation as well For Breathing techniques: You can watch John Carlisle and learn the breathing technique and its benefits by watching the following YouTube: [email or web address]. Learning about your awareness/spiritual being, is very [...] work with a psychotherapist or behavioral health classroom technology coach. When having a psychiatric condition, it [...] or a higher dose. Raw: Garlic, Cilantro, [place] nuts, Pumpkin seeds, [place] seeds and Flax seed powder have been reported to help with certain metal detoxification such as mercury. Victoria-3 plant based rich foods are good anti-inflammatory [...] the Whole Plant Based Diet, by watching [place] over Yovigo movie and then review website. There are many other resources and educational information on the Whole plant based diet on the Internet and documentaries. There are other resources for wellness that you can also benefit from, such as the [facility] Wellness website, [facility] and includes Plant based and Mediterranean diet, yoga and meditation. Please avoid all dairy products. You could use non-dairy milk such as Flax milk, Cashew milk, Seaman milk, Rice milk, Oat milk or Hemp [...] below, just add the ingredients to your filler blender and blend: - Probably the healthiest smoothie is one that contains mostly green leafy vegetables (especially containing kale), some berries, flax seed and water. This might not stock turner to be sweet. You can add one or two pitted dates or a frozen banana for natural sweetness. Examples of healthy green smoothies, pack your filler blender (at least half way to 01/17) with a mix of green leafy veggies, then top your filler blender with fruits (such as banana or [...] risk for kidney stones. The same with lebanese chards and beet leaves. If you don't [...] health and wellbeing. At the [facility], we work as a team for your care, along with Nurse Practitioners, Physician Assistants, Nurses and Medical Assistants. It is a privilege and honor to serve you. Thank you for choosing The [facility] for your healthcare. Sincerely, Darrian Dubon MD BONE MINERAL DENSITY PATIENT INSTRUCTIONS Bone mineral density testing measures the amount [...] you can resume your usual activities immediately. 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 - traMADol (ULTRAM) 50 mg tablet Take 50 mg by mouth every 6 hours as needed for pain. - ENTYVIO 300 mg injection - sulfaSALAzine [...] by mouth. 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 IF ANY ABNORMAL LAB REQUIRES SOONER ATTENTION, WE WILL CONTACT YOU. -If you have signed up on [address], we will release your test results through [address]. I wish you the best of health [...] track your nutrition and calcium intake on www.PlastiPure.MalibuIQ This provides macro and micronutrient intake and requirements. - You can track your calcium intake on [employer] Japanometer.MalibuIQ or any other calcium tracker of your [...] youtube and copy and paste this link: [email or web address] This is done by a Physical Medicine and Rehab doctor who is a social work professor in [facility] [facility] [employer]. She completed a PhD at the [employer]. I hope you find it helpful. Please take precautions and start gradual when starting a new exercise program. Another reference includes this one: -Dominique RM, Peg Desai J, Ne RL, Agustin SF, Judy EW. Exercise for the prevention of osteoporosis in postmenopausal women: an evidence-based guide to the optimal prescription. Thor J Desktop Support Associate. 2019 Jan-Feb;23(2):170-180. doi: 10.1016/j.bjpt.2018.11.011. Epub 2017Oct 07. PMID: 88390121; PMCID: ZAG0819446. - Stress can lead to bone loss. [...] hazelnuts, legumes, soybeans and other beans) - Nokomis (potatoes, avocados, almonds, peanuts) - Chromium (broccoli, [...] Ther Adv Musculoskelet Dis. 2011 Oct;3(6):293-300. doi: 10.1177/4843807L23522979. PMID: 09180975; PMCID: QQG8732889. -SUDHEER Carrillo., NYLA Dodson., GHAZAL Flores. et al. Soy isoflavone intake inhibits bone resorption and stimulates bone formation in menopausal women: meta-analysis of randomized controlled trials. Eur J Clin Nutr 62, 155-161 (2008). https://doi.org/10.1038/sj.ejcn.0993778 -Clyde Rosa, Trisha Lara, Harry De Leon. et al. Isoflavone intervention and its impact on bone mineral density in postmenopausal women: a systematic review and meta-analysis of randomized controlled trials. Osteoporos Int (2022). https://doi.org/10.1007/h73779-846-83510-g -Jack Finch, Trisha Lara, Clyde Grant et al. Effects of isoflavone interventions on bone mineral density in postmenopausal women: a systematic review and meta-analysis of randomized controlled trials. Osteoporos Int 31, 0026-0199 (2020). https://doi.org/10.1007/x09995-621-10310-h - Benefits of consuming soy in whole foods are listed in this article at the PCR website: https://www.pcrm.org/good-nutrition/nutrition-information/gbv-fek-rvqiar - Prunes have been reported to help with bone density and inflammation, and are also beneficial for the gut microbiome and constipation. -The Prune Study article: Perrin, Sivakumar ALDANA, Jordy NI, Edouard H, Flor KJ, Trey C, Praveena MG, Ara CH, Terry C. Prunes preserve hip bone mineral density in a 12-month randomized controlled trial in postmenopausal women: the Prune Study. Am J Clin Nutr. 2021Aug 21;116(4):897-910. doi: 10.1093/ajcn/ukxh924. PMID: 81921199. -Benefit to bone density and inflammation: Hebert WYMAN, Perrin, Glory SOLARES, Sivakumar ALDANA, Trey CUBA. The Role of Prunes in Modulating Inflammatory Pathways to Improve Bone Health in Postmenopausal Women. Adv Nutr. 2021Aug 17;13(5):3025-0538. doi: 10.1093/advances/ktpu517. PMID: 72478446; PMCID: QYY8314750. - Information on Vitamin K2: more recently [...] with the exception of Natto (a traditional Somali food made from fermented soybeans) has high amounts of vitamin K2 (MK7). Please avoid vitamin K1, as this can raise the risk of blood clots If you are on coumadin or warfarin you should not take vitamin K. Please discuss with your prescriber. Additional information on vitamin K is available at the NIH website: https://ods..nih.gov/factsheets/VitaminK-HealthProfessional/#h2 -Magnesium rich foods include: raw nuts and [...] of these foods, please consult with your Cyber Intelligence Analyst or Physician first. Review of Osteoporosis medications [...] can read more at these [facility] web links: https://my.[facility].org/health/treatments/32107-renkkjxdmmpykun For Fosamax/alendronate: https://my.[facility].org/health/drugs/58707-obismrkxapd-mvpdmhw For Actonel/risedronate: https://my.[facility].org/health/drugs/23167-bctqcpgnrmc-fazn-hekupzh For Reclast/zoledronic acid: https://my.[facility].org/health/drugs/98041-buxovfjzgc-lvtf-gujzoxigf -azttwt-jufaerm-rujzjsfbmufv -Subcutaneous Prolia: this is one injection every 6 months, given by the nurse in the office. This medication is given mcfp, indefinitely. Prolia should not be discontinued without [...] looked into transition therapy. Recent study from [facility] Slim et al, 04/11/2020 (PMID: [id number].The study is ongoing, clinicaltrials.gov; [id number]), reported one infusion of IV Reclast did [...] can read more at these [facility] web links: https://my.[facility].org/health/drugs/40029-honhiwzsw-oscoransw Medications that build bone density and prevent [...] can read more at these [facility] web links: For Forteo/teriparatide: https://my.[facility].org/health/drugs/01074-esqfiqapbcmq-jtdimtgjq For Tymlos/abaloparatide: https://Velti.[facility].org/health/drugs/88544-sowhsepawvukj-cvsgvbpco Medication that both prevents bone loss and [...] initiated in patients who have had an UT or stroke in the preceding year or those considered high risk. We may need a clearance from a Assayer Helper prior to proceeding with this medication in patients who have a cardiovascular disease history. This is only prescribed for 1 year and then needs to be followed by anti-resorptive therapy, according to recommendations. You can read more at these [facility] web links: For Evenity/romosozumab: https://Velti.[facility].org/health/drugs/96479-fggbkpolaoi-inhvkylfi Other less potent Osteoporosis medications, such as [...] available medications were provided: Link to the [place] [employer] website at: https://www.rheumatology.org/I-Am-A/Patient-Caregiver/Diseases-Conditions/O steoporosis Link to the [facility] web link at: On Osteoporosis: https://my.[facility].org/health/diseases/4443-osteoporosis On Osteopenia: https://my.[facility]/health/diseases/83740-xrlahmviml - Additional information on Bone Health and [...] swallow - They should dissolve easily in ? cup of vinegar in < 15 minutes. [...] Osteoporosis Foundation) http://www.osteo.org/osteolinks.asp National Institutes of Health: 2-761-389-BONE The Calcium Information Center: Non-Dairy, Plant based Milk, can contain in1 glass up to 450 mg of calcium (300 to 450 mg) Exampled include Oat Milk, Flax Milk, Seaman Milk, Cashew Milk, Soy Milk, Peas Milk Examples of Food Sources of Calcium from NIH Food Milligrams (mg) per serving Percent DV* Soymilk, calcium-fortified, 8 ounces 299 30 Salkum juice, calcium-fortified, 6 ounces 261 26 Tofu, firm, made with calcium sulfate, ? cup* 253 25 Tofu, soft, made with calcium sulfate, ? cup* 138 14 Wquiz-ki-wjn cereal, calcium-fortified, 1 cup 100-1,000 10-100 Turnip greens, fresh, boiled, ? cup 99 10 Kale, raw, chopped, 1 cup 100 10 Kale, fresh, cooked, 1 cup 94 9 Monegasque cabbage, bok marin, raw, shredded, 1 cup 74 7 Bread, white, 1 slice 73 7 Tortilla, corn, ucahj-ih-msxt/marshall, one 6? diameter 46 5 Tortilla, flour, ksolj-sy-hvdz/marshall, one 6? diameter 32 3 Bread, whole-wheat, 1 slice 30 3 Broccoli, raw, ? cup 21 2 * DV = Daily Value. DVs were developed by the U.S. Food and Drug Administration to help consumers compare the nutrient contents among products within the context of a total daily diet. The U.S. Department of Agriculture?s (USDA?s) Nutrient Database Web site lists the nutrient [...] daily with a meal; Certain patients require 6188-0194 international units daily and in patients deficient [...] bones. Studies show approximately 50% of [place] men and women are vitamin D deficient [...] Additional Information is available from: [facility] Osteoporosis Information: https://my.[facility].org/departments/orthopaedics-rheumatology/depts/ osteoporosis-metabolic The Bone Health and Osteoporosis Foundation (formerly the National Osteoporosis Foundation) : https://www.bonehealthandosteoporosis.org International Osteoporosis Foundation: https://www.osteoporosis.foundation http://ods.od.nih.gov/factsheets/vitamind.asp National Institutes of Health: 0-603-629-BONE The Calcium Information Childress: I recommend following a healthy lifestyle. You [...] track your nutrition and calcium intake on www.PlastiPure.MalibuIQ This provides macro and micronutrient intake and [...] that features the Whole Plant Based diet, [place] over knives (see video online and visit website). Another movie that was recently released is: Eating You Alive (you can find it at [employer]) and The TenTwenty7 Changers movie Dr. Fauzia Ansari is a [facility] physician who has done research and published books, is an expert in Whole Plant based diet for prevention and reversal of heart disease. His website is [employer]. His research highlights the benefits of the [...] Engine 2 cookbook Eze is a retired silk screen printer who has helped many people get healthier by following the whole food plant based diet. Dr. Rock Velazco, has a website and free angélica to help get started on a whole plant based diet, at www.pcr.org and you can log on for free for his 21-Day Kickstart with meals and recipes to follow for 21 days. There is also a free angélica for that. He has multiple free videos and YouTube, for example: https://youYuDoGlobal.be/ptaJbswE2b0 , https://youtu.be/MgSSPhjtz7y He has written multiple books, including [employer] for the Brain, The Cheese Trap, Dr. Rock Velazco's Program for Reversing Diabetes, Your Body in Balance You can also watch YouTube channel : The Doc AND Parts Classifier Dr. Anthony Carlson has shown the benefit of a starch based whole food plant based diet to his Rheumatoid Arthritis patients, as well as patient with diabetes II, hypertension, obesity, multiple sclerosis, heart disease, acne, and other, his website: www.BloggersBase.MalibuIQ Dr. Yayo Allred is a renowned bioinformatics computer scientist, who has studied and researched the benefits of the Whole plant based diet. He has also researched the adverse effects of animal proteins on health. He presents many of his research findings in his book The [place] study. Dr. Gerber Becker has completed many research trials proving the reversal of diseases, such as heart disease and early prostate cancer, with healthy lifestyle and the Whole Plant based diet. Dr. Gerber Becker website is: www.carmenElectro-LuminX.MalibuIQ His new book: Undo It, has evidence [...] videos and YouTube, for example https://youtu.be/aSgNkhgVtks and https://youBright.mdu.be/lXXXygDRyBU. He has written multiple books including: How Not To and How Not To Diet He is now working on his next book: How Not To Age Dr. Danitza Dash (from the [facility]), has articles on the following website: your[employer].MalibuIQ For additional ideas on recipes, you could find additional information on practical to follow recipes by reading or watching online and YouTube such as: Chef BELLE, Cooking With Plants, The Vegan Corner (recipes from an Congolese Parts Classifier), The Whole Foods Plant Based Cooking Show and visiting the provided websites for additional information on the whole plant based benefit and cooking recipes. You can also consider watching the vlogs of some of the plant based Athletes such as Fausto Ewing Derek on [employer]. You can find very good recipes for [...] Dr. Ignacio Degroot Lifestyle Medicine (is a Assayer Helper and Lifestyle Medicine Physician) -Sometimes it helps to start with a simple diet of potatoes, that Dr. Carlson calls Yarelis Butler. You can learn more about that in his website: www.[employer].MalibuIQ This is the website for Yarelis Butler pdf : https://www.RealtyAPX/wp-content/uploads//Georgiana-Mini_Website_P rint_Version-1.pdf You can also read more on Dr. Carlson's website - When you goal is to lose weight, it is important to listen to your hunger cues. Don't eat until you are stuffed. As soon as you feel you are no longer hungry, stop eating. There is a Somali saying that says Tammie Vega, meaning eat until you are 80% full. I say avoid eating past 80% of your stomach fullness. This originated from the city of [facility], which is one of the sites reported in the Blue [place] book, one of the highest cities in the world for having the most centenarians. Remember your stomach needs space and capacity for proper digestion of your food. Like a non food receiving clerk or a filler blender, they have a limit for proper function, and should not be filled to the top. You can read more about that from the [facility] article Don?t Eat Until You?re Full ? Instead, Mind Your Tammie Borges , at https://health.[facility].org/vcqh-eez-hapdk-fwbus-brly-lddyhog-mind-y cfi-tdqw-vlsov-salvador-point/ Most plants contain proteins and all essential [...] also important to ensure they are 3rd constitution party tested to avoid contaminants. You can [...] you will need to consult with a shearing shed hand to have further evaluation to exclude Celiac [...] - Gentle Yoga Anyone Can Do Anywhere www.InfoDif.MalibuIQ/yoga Also on youtube: yoga with Karlie For women, especially after menopause, strength training is important. You can read more on that from Clare Morley, PhD at her website https://www.GoEuro and YouTube videos. If you are a beginner, it is best to start with a physical therapist or interpersonal communications professor. There are also several Aps that offer [...] can find more at the [facility] Website on : https://my.[facility].org/departments/wellness/store/go-well#sleep-tab 4- Stress management, be happy, laugh [...] Timer Meditation Stress Free Now ([facility]). You can find more resources at the [facility] website at : https://my.[facility].org/departments/wellness/store/go-well#stress-fr ee-tab There are many free youtube videos on guided meditation as well For Breathing techniques: You can watch John Carlisle and learn the breathing technique and its benefits by watching the following YouTube: https://Akamedia.be/2Wu6L-NYj78?si=-Npxnb8AopELIwZZ. Learning about your awareness/spiritual being, is very [...] work with a psychotherapist or behavioral health classroom technology coach. When having a psychiatric condition, it [...] or a higher dose. Raw: Garlic, Cilantro, [place] nuts, Pumpkin seeds, [place] seeds and Flax seed powder have been reported to help with certain metal detoxification such as mercury. Victoria-3 plant based rich foods are good anti-inflammatory [...] the Whole Plant Based Diet, by watching [place] over Yovigo movie and then review website. There are many other resources and educational information on the Whole plant based diet on the Internet and documentaries. There are other resources for wellness that you can also benefit from, such as the [facility] Wellness website, [facility] and includes Plant based and Mediterranean diet, yoga and meditation. Please avoid all dairy products. You could use non-dairy milk such as Flax milk, Cashew milk, Seaman milk, Rice milk, Oat milk or Hemp [...] below, just add the ingredients to your filler blender and blend: - Probably the healthiest smoothie is one that contains mostly green leafy vegetables (especially containing kale), some berries, flax seed and water. This might not stock turner to be sweet. You can add one or two pitted dates or a frozen banana for natural sweetness. Examples of healthy green smoothies, pack your filler blender (at least half way to 34) with a mix of green leafy veggies, then top your filler blender with fruits (such as banana or [...] risk for kidney stones. The same with lebanese chards and beet leaves. If you don't [...] health and wellbeing. At the [facility], we work as a team for your care, along with Nurse Practitioners, Physician Assistants, Nurses and Medical Assistants. It is a privilege and honor to serve you. Thank you for choosing The [facility] for your healthcare. Sincerely, Darrian Dubon MD BONE MINERAL DENSITY PATIENT INSTRUCTIONS Bone mineral density testing measures the amount [...] you can resume your usual activities immediately. Level of Service: OFFICE/OUTPATIENT ESTABLISHED MOD MDM 30 MIN [42729] Additional E/M codes: VISIT CPLX INHERENT EANDM ASSOC WITH MED * Disposition: Return for as scheduled 05/2025. Follow-up and Disposition History for Encounter Date Provider Department Center 02/14/2025 [id number] DUBON ANGEL Ch[facility] Encounter Status:Closed by DARRIAN DUBON on 02/20/25 AMA AB SCR Collected: 12/14/2024 9:27 AM Status: F Source: [facility] TYPE CODE TESTS RESULT OUT OF RANGE REFERENCE UNITS LAB 17099-0(LOINC) MITOCHONDRIA M2 AB.IGG:ACNC:PT:S ER:QN: <20.0 Unknown 0.0-20.0 unit(s) Result Comment: Negative 0.0 - 20.0 Equivocal 20.1 - 24.9 Positive >24.9 Mitochondrial (M2) Antibodies are found in 90-96% of patients with primary biliary cirrhosis. Performed at: [facility] [id number] PhD Tarun Olivas Performed By: #### [id number] #### [facility] [address] [place] [address] HEP BS AB Collected: 9:27 AM Status: F Source: [facility] TYPE CODE TESTS RESULT OUT OF RANGE REFERENCE UNITS LAB 79816-2(LOINC) HEPATITIS B VIRUS SURFACE AB:PRTHR:PT:S ER:ORD: Non Reactive Unknown Result Comment: Non Reactive : Not immune to HBV infection. Equivocal: Unable to determine if anti-HBs is present at levels consistent with immunity. Reactive: Anti-HBs concentration detected at greater than 10 mIU/mL. Individual is considered to be immune to infection with HBV. Performed at: [facility] [id number] [place], [place] [id number] PhD Tarun Olivas Performed By: #### [id number] # ### [facility] [address] [place] [address] CBC W/ AUTO DIFF Collected: 12/14/2024 9:27 AM Statu s: F Source: [facility] TYPE CODE TESTS RESULT OUT OF RANGE REFERENCE UNITS LAB 19105-4(LOINC) LEUKOCYTES^^ANUSHKA ECTED FOR NUCLEATED ERYTHROCYTES:NCN C:PT:BLD:QN:AUTO MATED COUNT 6.6 Normal 4.0-11.0 E9/L LAB 789-8(LOINC) ERYTHROCYTES:NCN C:PT:BLD:QN:AUTO MATED COUNT 4.0 Low 4.3-5.9 E12/L LAB 718-7(LOINC) HEMOGLOBIN:MCNC: PT:BLD:QN: 12.6 Low 13.5-17.5 gm/dL LAB 4544-3(LOINC) HEMATOCRIT:VFR:P T:BLD:QN:AUTOMAT ED COUNT 36.2 Low 37.7-49.0 % LAB 788-0(LOINC) ERYTHROCYTE DISTRIBUTION WIDTH:RATIO:PT:R BC:QN:AUTOMATED COUNT 15.6 High 10.9-14.2 % LAB 785-6(LOINC) ERYTHROCYTE MEAN CORPUSCULAR HEMOGLOBIN:ENTMA SS:PT:RBC:QN:AUT OMATED COUNT 31.7 Normal 27.0-34.0 pg LAB 786-4(LOINC) ERYTHROCYTE MEAN CORPUSCULAR HEMOGLOBIN CONCENTRATION:MC NC:PT:RBC:QN:AUT OMATED COUNT 34.9 Normal 31.4-36.0 gm/dL LAB 787-2(LOINC) ERYTHROCYTE MEAN CORPUSCULAR VOLUME:ENTVOL:PT :RBC:QN:AUTOMATE D COUNT 90.8 Normal 80.0-100.0 fL LAB 35416-0(LOINC) PLATELET MEAN VOLUME:ENTVOL:PT :BLD:QN:AUTOMATE D COUNT 6.9 Normal 6.4-10.8 fL LAB [id number]([facility]) Platelet 261.0 Normal 150.0-500.0 E9/ L LAB 97554-5([facility]) NEUTROPHILS/100 LEUKOCYTES:NFR:P T:BLD:QN: 67.2 Normal 36.0-75.0 % LAB 731-0([facility]) LYMPHOCYTES:NCNC :PT:BLD:QN:AUTOM ATED COUNT 24.8 Normal 14.0-50.0 % LAB 742-7([facility]) MONOCYTES:NCNC:P T:BLD:QN:AUTOMAT ED COUNT 0.5 Normal 0.2-1.0 E9/L LAB 713-8([facility]) EOSINOPHILS/100 LEUKOCYTES:NFR:P T:BLD:QN:AUTOMAT ED COUNT 0.0 Normal 0.0-8.0 % LAB 704-7([facility]) BASOPHILS:NCNC:P T:BLD:QN:AUTOMAT ED COUNT 0.5 Normal 0.0-2.0 % LAB 751-8([facility]) NEUTROPHILS:NCNC :PT:BLD:QN:AUTOM ATED COUNT 4.4 Normal 2.0-7.5 E9/L LAB 77421-6([facility]) LYMPHOCYTES:NCNC :PT:BLD:QN: 1.6 Normal 1.0-4.0 E9/L LAB 95679-3([facility]) EOSINOPHILS:NCNC :PT:BLD:QN: 0.0 Normal 0.0-0.5 E9/L LAB 81437-1([facility]) BASOPHILS/LEUKOC YTES:NFR.DF:PT:B LD:QN:AUTOMATED COUNT 0.0 Normal 0.0-0.2 E9/L Performed By: #### [id number] # ### [facility] [address] [place] [address] CMP Collected: 12/14/2024 9:27 AM Status: F Source: [facility] TYPE CODE TESTS RESULT OUT OF RANGE REFERENCE UNITS LAB 2345-7([facility]) GLUCOSE:MCNC:P T:SER/PLAS:QN: 94 Normal 55-199 mg/dL LAB 3094-0([facility]) UREA NITROGEN:MCNC: PT:SER/PLAS:QN : 16 Normal 5-21 mg/dL LAB 2160-0([facility]) CREATININE:MCN C:PT:SER/PLAS: QN: 0.8 Normal 0.5-1.3 mg/dL LAB 26101-2([facility]) CALCIUM:MCNC:P T:SER/PLAS:QN: 9.1 Normal 8.9-11.1 mg/dL LAB 2951-2([facility]) SODIUM:SCNC:PT :SER/PLAS:QN: 139 Normal 135-145 mmol/L LAB 2823-3([facility]) POTASSIUM:SCNC :PT:SER/PLAS:Q N: 4.7 Normal 3.5-5.3 mmol/L LAB 2075-0([facility]) CHLORIDE:SCNC: PT:SER/PLAS:QN : 108 Normal 101-111 mmol/L LAB 2028-9([facility]) CARBON DIOXIDE:SCNC:P T:SER/PLAS:QN: 27 Normal 21-31 mmol/L LAB 6768-6([facility]) ALKALINE PHOSPHATASE:CC NC:PT:SER/PLAS :QN: 88 Normal 21-98 Int._Unit /L LAB 1975-2([facility]) BILIRUBIN:MCNC :PT:SER/PLAS:Q N: 0.4 Normal 0.0-1.1 mg/dL LAB 1751-7([facility]) ALBUMIN:MCNC:P T:SER/PLAS:QN: 4.1 Normal 3.3-5.0 gm/dL LAB 2885-2([facility]) PROTEIN:MCNC:P T:SER/PLAS:QN: 6.9 Normal 6.0-7.8 gm/dL LAB 1744-2([facility]) ALANINE AMINOTRANSFERA SE:CCNC:PT:SER /PLAS:QN:NO ADDITION OF P-5'-P 27 Normal 6-46 Int._Unit /L LAB 1920-8([facility]) ASPARTATE AMINOTRANSFERA SE:CCNC:PT:SER /PLAS:QN: 29 Normal 5-43 Int._Unit /L LAB 3097-3([facility]) UREA NITROGEN/CREAT ININE:MRTO:PT: SER/PLAS:QN: 20 Normal 10-20 No Units LAB 85029-1([facility]) ANION GAP:SCNC:PT:SE R/PLAS:QN: 9 Normal 6-16 mEq/L LAB 90977-0([facility]) GLOBULIN:MCNC: PT:SER:QN:CALC ULATED 2.8 Normal 1.4-4.0 gm/dL LAB 98186-5([facility]) ALBUMIN/GLOBUL IN:MCRTO:PT:SE R:QN: 1.5 Normal 1.1-2.2 Performed By: #### [id number] # ### [facility] [address] [place], [place] [id number] HEP BS AG Collected: 12/14/2024 9:27 AM Status: F Source: [facility] TYPE CODE TESTS RESULT OUT OF RANGE REFERENCE UNITS LAB 5196-1([facility]) HEPATITIS B VIRUS SURFACE AG:PRTHR:PT:SE R/PLAS:ORD:IA Negative Unknown Negative Result Comment: Performed at : [address] [id number] PhD Tarun Olivas Performed By: #### [id number] # ### [facility] [address] [place] [address] EGFR Collected: 9:27 AM Status: F Source: [facility] TYPE CODE TESTS RESULT OUT OF RANGE REFERENCE UNITS LAB 64194268([facility]) eGFR 101 Normal >=59 mL/min/1 .7 3 m2 Performed By: #### [id number] #### [facility] [address] [place] [address] CELIAC DISEASE COMPREHENSIVE Collected: 12/14/2024 9: 27 AM Status: F Source: [facility] TYPE CODE TESTS RESULT OUT OF RANGE REFERENCE UNITS LAB 33841-4(LOIN C) GLIADIN PEPTIDE AB.IGA:ACNC:PT:SER :QN: 5 Unknown 0-19 unit(s) Result Comment: Negative 0 - 19 Weak Positive 20 - 30 Moderate to Strong Positive >30 LAB 70739-4(LOIN C) GLIADIN PEPTIDE AB.IGG:ACNC:PT:SER :QN: 2 Unknown 0-19 unit(s) Result Comment: Negative 0 - 19 Weak Positive 20 - 30 Moderate to Strong Positive >30 LAB 07868-0(LOIN C) TISSUE TRANSGLUTAMINASE AB.IGA:ACNC:PT:SER :QN: <2 Unknown 0-3 unit/mL Result Comment: Negative 0 - 3 Weak Positive 4 - 10 Positive >10 Tissue Transglutaminase (tTG) has been identified as the endomysial antigen. Studies have demonstr- ated that endomysial IgA antibodies have over 99% specificity for gluten sensitive enteropathy. LAB 84462-7(LOIN C) TISSUE TRANSGLUTAMINASE AB.IGG:ACNC:PT:SER :QN: 6 High 0-5 unit/mL Result Comment: Negative 0 - 5 Weak Positive 6 - 9 Positive >9 LAB 32434-4(LOIN C) ENDOMYSIUM AB.IGA:PRTHR:PT:SE R:ORD: Negative Unknown Negative LAB 2458-8(INC ) IGA:MCNC:PT:SER/PL :QN: 199 Unknown 90-386 mg/dL Result Comment: Performed at : [facility] [id number] PhD Tarun Olivas Performed By: #### [id number] #### [facility] [address] [place] [address] CRP Collected: 12/14/2024 9:27 AM Status: F Source: [facility] TYPE CODE TESTS RESULT OUT OF RANGE REFERENCE UNITS LAB 1988-5([facility]) C REACTIVE PROTEIN:MCNC:P T:SER/PLAS:QN: 0.2 Normal <=1.9 mg/dL Performed By: #### [id number] # ### [facility] [address] [place] [address] QUANTIFERON-TB PLUS (CLIENT INCUBATED) Collected: 12/14/2024 9:27 AM Status: F Source: F [facility] TYPE CODE TESTS RESULT OUT OF RANGE REFERENCE UNITS LAB 8251-1([facility]) SERVICE COMMENT:IMP:PT:X XX:NOM: Comment Unknown Result Comment: QuantiFERON- TB Gold Plus is a qualitative indirect test for M tuberculosis infection (including disease) and is intended for use in conjunction with risk assessment, radiography, and other medical and diagnostic evaluations. The QuantiFERON-TB Gold Plus result is determined by subtracting the Nil value from either TB antigen (Ag) value. The Mitogen tube serves as a control for the test. LAB 36178-6(LOINC ) MYCOBACTERIUM TUBERCULOSIS STIMULATED GAMMA INTERFERON RELEASE BY CD4+ T-CELLS^^CORRECT ED FOR BACKGROUND:ACNC: PT:BLD:QN: 0.07 Unknown Internat ional_Un it/mL LAB 52667-4(LOINC ) MYCOBACTERIUM TUBERCULOSIS STIMULATED GAMMA INTERFERON RELEASE BY CD4+ AND CD8+ T-CELLS^^CORRECT ED FOR BACKGROUND:ACNC: PT:BLD:QN: 0.07 Unknown Internat ional_Un it/mL LAB 00197-0(LOINC ) GAMMA INTERFERON BACKGROUND:ACNC: PT:BLD:QN:IA 0.09 Unknown Internat ional_Un it/mL LAB 22731-0(LOINC ) MITOGEN STIMULATED GAMMA INTERFERON^^ANUSHKA ECTED FOR BACKGROUND:ACNC: PT:BLD:QN: >10.00 Unknown Internat ional_Un it/mL LAB 45022-1(LOINC ) MYCOBACTERIUM TUBERCULOSIS STIMULATED GAMMA INTERFERON:IMP:P T:BLD:ORD: Negative Unknown Negative Result Comment: No response to M tuberculosis antigens detected. Infection with [...] interferon gamma. Chemiluminescence immunoassay methodology Performed at: [facility] [address] [id number] PhD Tarun Olivas Performed By: #### [id number] #### [facility] [address] [place] [address] AMBULATORY VISIT SUMMARY Observed: 12/14 9:05 AM Status: F Source: [facility] Ambulatory Visit Summary JAM TOSCANO :1965 Visit [...] With: Ricky ROBLERO, Luis Antonio Tiwari Where: [facility] [address] [place], [place] [id number]- You Need to Complete the Following C-Reactive [...] PSA (prostate specific antigen) Ulcerative colitis, universal [place] ulcerative colitis Ureteral stone with hydronephrosis Urethral stone Historical - Any problem that you are no longer receiving treatment for. Extreme obesity Ulcerative colitis Patient Survey You may receive a survey via text or e-mail asking about your office visit. Please share your experience with us by completing your survey. We appreciate your feedback and thank you for choosing us for your care. GASTROENTEROLOGY OFFICE/CLINIC NOTE Obse rved: 12/14/2024 8:34 AM Status: F Source: [facility] Gastroenterology Office/Clin ic Note Chief Complaint 6 month follow up [...] Last visit 06/13/24 w/Dr. García: Assessment/Plan 1. [place] ulcerative colitis (K51.00: Ulcerative (chronic) pancolitis without [...] next colonoscopy, he prefers to stay at [facility] He has also RA, no specific therapy for now, follows with Dr. Valente at [place] We discussed that having this lesion in [...] 89.5 fL (03/02/24) Chloride: 107 mmol/L (03/02/24) [place] Absolute: 0.5 E9/L (03/02/24) CO2: 27 mmol/L (03/02/24) [place] Auto: 8.2 % (03/02/24) Creatinine: 0.8 mg/dL [...] 6.6 E9/L (03/02/24) History of Present Illness I have reviewed the HPI obtained by staff and I verified the info taken, my notes are reflected in the assessment and plan Review of Systems PHQ Score Initial Depression Screen Score: 0 SCORE Physical Exam Vitals & Measurements RR: 12 BP: 117/79 HT: 65 in HT: 166 cm WT: 77 kg WT: 169.756 lb BMI: 27.94 Assessment/Plan 1. Ulcerative colitis, universal (K51.00: Ulcerative (chronic) pancolitis without complications) Severe ulcerative colitis , dx 03/2015, started on sulfasalazine. He was initially started on mesalamine and then switched to sulfasalazine. added Humira in 2018, increased his Humira, did not improve Started Entyvio: 03/2023: q8 weeks since then he is in full remission, switch to Entyvio subcutaneous recently, doing well had colonoscopy 02/2024 had polyps, TV and TA's Repeat colonoscopy with Dr. Otero May 2024 showed no tubular adenomas just [...] next colonoscopy, he prefers to stay at [facility] He has also RA, no specific therapy for now, follows with Dr. Valente at [place], currently only on sulfasalazine Repeat blood work today Repeat colonoscopy April-May We discussed lifestyle modifications including Mediterranean diet and exercise Discussed health maintenance as well including vaccinations, getting his DEXA scan with Dr. Tatum and osteoporosis therapy 2. History of colon polyps (Z86.0100: Personal history of colon polyps, unspecified) 3. Elevated alkaline phosphatase level (R74.8: Abnormal levels of other serum enzymes) Very minimal, no concern for PSC or PBC at this time Follow-up No qualifying data available Problem List/Past Medical History Ongoing Acute diarrhea Adenomatous colon polyp Anemia Arthritis Bladder mass Bladder stone BPH with urinary obstruction Continuous severe abdominal pain Elevated alkaline phosphatase level Feeling of incomplete bladder emptying Gross hematuria Heartburn Hematochezia History of colon polyps Hyperlipemia Incomplete bladder emptying Kidney stones Multiple renal cysts Prostate calculus Pyuria Rectal bleed Screening PSA (prostate specific antigen) Ulcerative colitis, universal [place] ulcerative colitis Ureteral stone with hydronephrosis Urethral stone Historical Extreme obesity Ulcerative colitis Procedure/Surgical History Colonoscopy (06/03/2024), Esophagogastroduodenoscopy (06/03/2024), Colonoscopy (02/26/2024), Colonoscopy (03/23/2023), Cystoscopy (02/04/2021), Colonoscopy, Procedure on hip, Procedure on knee. Medications atorvastatin 20 mg Tab, 20 mg= 1 tab(s), Oral, Daily cholecalciferol 5000 intl units oral capsule, Oral, Daily Entyvio Pen 108 mg/0.68 mL subcutaneous solution, 108 mg folic acid 1 mg Tab, 1 mg= 1 tab(s), Oral, Daily lisinopril, 10 mg, Oral Multivitamins and Minerals, 1 tab, Oral, Daily omeprazole 40 mg Sydni 40 mg= 1 cap(s), Oral, Daily sulfasalazine, 500 mg, Oral, QID Turmeric, 400 mg, Oral, Daily Zetia 10 mg Tab, 10 mg= 1 tab(s), Oral, Daily Allergies No Known Allergies No Known Medication Allergies Social History Alcohol - Denies Alcohol Use, 07/06/2019 Never., 11/21/2024 Exercise - Occasional exercise, 08/23/2019 Other Caffiene- Coffee 1 cup daily, 08/23/2019 Substance Abuse - Denies Substance Abuse, 07/06/2019 Never., 11/21/2024 Tobacco - Denies Tobacco Use, 07/06/2019 Former smoker, quit more than 30 days ago Tobacco Use:. Never Smokeless Tobacco Use:. Cigarettes, 12/14/2024 Former smoker, quit more than 30 days ago Tobacco Use:., 11/21/2024 Former smoker, quit more than 30 days ago Tobacco Use:. Never Smokeless Tobacco Use:. Yes, 03/04/2024 Former smoker, quit more than 30 days ago Tobacco Use:. Never Smokeless Tobacco Use:., 07/23/2022 Family History Arthritis: Brother. Asthma: Mother. Heart disease: Mother. High cholesterol: Mother. Hypertension: Mother. Stroke: Father. Immunizations Vaccine Date Status Comments influenza virus [...] Recorded hepatitis A-hepatitis B vaccine 05/03/2015 Recorded Result Comment: Electronical ly Signed By: Ricky ROBLERO, Luis Antonio Tiwari\.sania\Date and Time Signed: 12/14/24 08:52 EST PSA TOTAL Collected: 12:52 PM Status: F Source: [facility] TYPE CODE TESTS RESULT OUT OF RANGE REFERENCE UNITS LAB 2857-1(LOINC) PROSTATE SPECIFIC AG:MCNC:PT:S ER/PLAS:QN: 3.3 Normal 0.1-3.5 ng/mL Result Comment: The concentr ation of PSA determined by different manufacturers can vary due to differences in assay methods and reagent specificity. Values obtained from different assay methods cannot be used interchangeably. The methodology used for this result was chemiluminescence using [employer]'s Access Hy[employer]itech PSA reagent. Performed By: #### [id number] #### [facility] [address] [place] [address] AMBULATORY VISIT SUMMARY Observed: 11/21 12:49 PM Status: F Source: [facility] Ambulatory Visit Summary ARNULFOJAM SCHUSTER :1965 Visit Date:11/21/2024 Ambulatory Visit Instructions Your Diagnosis Ureteral stone with hydronephrosis Kidney stones BPH with urinary obstruction Feeling of incomplete bladder emptying Screening PSA (prostate specific antigen) Pyuria Multiple renal cysts Tests Performed CT Abdomen/Pelvis w/o Contrast -- Results Pending -- Please visit your patient portal for your results or contact your primary care physician. Your Care Team Attending Physician - Marcin RAMÍREZ MD Primary Care Physician - Jose L [...] With: Ricky ROBLERO, Luis Antonio Tiwari Where: [facility] [address] Medical [address] [address]- You Need to Schedule the Following Appointments Follow Up with DARRELL ROBLERO, LOREE Bunch When: Where: [facility] [address], [place] [address]- Medications What How Much When Instructions Unchanged [...] or concerns Unchanged omeprazole (omeprazole 40 mg Sydni) 1 Capsules By Mouth Every day Contact [...] PSA (prostate specific antigen) Ulcerative colitis, universal [place] ulcerative colitis Ureteral stone with hydronephrosis Urethral [...] calcium at each meal. Foods that contain 200???500 mg of calcium a serving include: ? 8 oz (237 mL) of milk, phzwloo-bcyfgfrstmlr-anbqn milk, and calcium- fortifiedfruit juice. Calcium-fortified means that calcium has been [...] of sardines or mackerel. Most people need 1,000???1,500 mg of calcium a day. Talk to [...] Armenian chard. ? Peanuts. ? Potato chips, tajik fries, and baked potatoes with skin on. ? Nuts and nut products. ? Chocolate. ??? If you regularly take a diuretic medicine, make sure to eat at least 1 or 2 servings of fruits or vegetables that are high in potassium each day. These include: ? Avocado. ? Banana. ? Salkum, prune, carrot, or tomato juice. ? Baked potato. ? Cabbage. ? Beans and split peas. Lifestyle ??? Drink enough fluid to keep your urine pale yellow. This is the most important thing you can do. Spread your fluid intake throughout the day. ??? If you drink alcohol: ? Limit how much you have to: ? 0???1 drink a day for women who are not . ? 0???2 drinks a day for men. ? Know how much alcohol is in your drink. In the [place] one drink equals one 12 oz bottle of beer (355 mL), one 5 oz glass of wine (148 mL), or one 1??? oz glass of hard liquor (44 mL). [...] fish oil, or vitamin B6. ??? Take jfnj-ued-gksdbak and prescription medicines only as told by your health care provider. These include supplements. What foods should I limit? Limit your intake of the following foods, or eat them as told by your dietitian. Vegetables Spinach. Rhubarb. Beets. Canned vegetables. Pickles. Olives. Baked potatoes with skin. Grains Wheat bran. Baked goods. Salted crackers. Cereals high in sugar. Meats and other proteins Nuts. Nut butters. Large portions of meat, poultry, or fish. Salted, precooked, or cured meats, such as sausages, meat loaves, and hot dogs. Dairy Cheeses. Beverages Regular soft drinks. Regular vegetable juice. Seasonings and condiments Seasoning blends with salt. Salad dressings. Soy sauce. Ketchup. Barbecue sauce. Other foods Canned soups. Canned pasta sauce. Casseroles. Pizza. Lasagna. Frozen meals. Potato chips. Cook Islander fries. The items listed above may not be a complete list of foods and beverages you should limit. Contact a dietitian for more information. What foods should I avoid? Talk to your dietitian about specific foods you should avoid based on the type of kidney stones you have and your overall health. Fruits Grapefruit. The item listed above may not be a complete list of foods and beverages you should avoid. Contact a dietitian for more information. Summary ??? Kidney stones are deposits of minerals and salts that form inside your kidneys. ??? You can lower your risk of kidney stones by making changes to your diet. ??? The most important thing you can do is drink enough fluid. Drink enough fluid to keep your urine pale yellow. ??? Talk to your dietitian about how much calcium you should have each day, and eat less salt and animal protein as told by your dietitian. This information is not intended to replace advice given to you by your health care provider. Make sure you discuss any questions you have with your health care provider. Document Revised: 02/12/2023 Document Reviewed: 02/12/2023 [employer] Patient Education ??? 2023 [employer]. UROLOGY OFFICE/CLINIC NOTE Observed: 04/2025 12:45 PM Status: C Source: [facility] Urology Office/Clinic Note Chief Complaint referral HPI Staff 59yr old male referred by Dr. Lackey for kidney stones w/ KUB. KUB done at [facility] on 11/14/24. Pt has seen Dr. [...] calculous obstruction) CT AP wo con 10/23/23 [facility] - Approximately 5 to 6 mm proximal [...] renal cysts) CT AP wo con 10/23/23 [facility] - A few to approximately 1.7 cm predominantly exophytic fluid density cysts, which do not require further imaging follow-up. CT AP w con 11/04/23 [facility] - There are multiple low-density lesions in both kidneys consistent with cysts. There are no solid renal lesions. -Does not require surveillance. Follow-up With When Contact Information DARRELL ROBLERO, Marcin R, URL [facility] [address], [place] [address]- Additional Instructions: f/u pending CT Patient Education [...] PSA (prostate specific antigen) Ulcerative colitis, universal [place] ulcerative colitis Ureteral stone with hydronephrosis Urethral stone Historical Extreme obesity Ulcerative colitis Procedure/Surgical History Colonoscopy (06/03/2024), Esophagogastroduodenoscopy (06/03/2024), Colonoscopy (02/26/2024), Colonoscopy (03/23/2023), Cystoscopy (02/04/2021), Colonoscopy, Procedure on hip, Procedure on knee. Medications atorvastatin 20 mg Tab, 20 mg= 1 tab(s), Oral, Daily cholecalciferol 5000 intl units oral capsule, Oral, Daily Entyvio Pen 108 mg/0.68 mL subcutaneous solution, 108 mg folic acid 1 mg Tab, 1 mg= 1 tab(s), Oral, Daily lisinopril, 10 mg, Oral Multivitamins and Minerals, 1 tab, Oral, Daily omeprazole 40 mg Cap-DR, 40 mg= 1 cap(s), Oral, Daily sulfasalazine, 500 mg, Oral, QID Turmeric, 400 mg, Oral, Daily Zetia 10 mg Tab, 10 mg= 1 tab(s), Oral, Daily Allergies No Known Medication Allergies Social History Alcohol - Denies Alcohol Use, 07/06/2019 Never., 11/21/2024 Exercise - Occasional exercise, 08/23/2019 Other Caffiene- Coffee 1 cup daily, 08/23/2019 Substance Abuse - Denies Substance Abuse, 07/06/2019 Never., 11/21/2024 Tobacco - Denies Tobacco Use, 07/06/2019 Former smoker, quit more than 30 days ago Tobacco Use:. Never Smokeless Tobacco Use:. Cigarettes, 11/21/2024 Former smoker, quit more than 30 days ago Tobacco Use:., 11/21/2024 Former smoker, quit more than 30 days ago Tobacco Use:. Never Smokeless Tobacco Use:. Yes, 03/04/2024 Former smoker, quit more than 30 days ago Tobacco Use:. Never Smokeless Tobacco Use:., 07/23/2022 Family History Arthritis: Brother. Asthma: Mother. Heart disease: Mother. High cholesterol: Mother. Hypertension: Mother. Stroke: Father. Immunizations Vaccine Date Status Comments influenza virus [...] Recorded hepatitis A-hepatitis B vaccine 05/03/2015 Recorded Lab Results Ambulatory Point of Care Results Bilirubin Urine Dipstick: Negative (11/21/24 11:44:00) Blood Urine Dipstick: Negative (11/21/24 11:44:00) Glucose Urine Dipstick: Trace 100 mg/dl (11/21/24 11:44:00) Ketones Urine Dipstick: Negative (11/21/24 11:44:00) Leukocytes Urine Dipstick: Trace (11/21/24 11:44:00) Nitrite Urine Dipstick: Negative (11/21/24 11:44:00) Protein Urine Dipstick: 1+ (30 mg/dl) (11/21/24 11:44:00) Specific [place] Urine Dipstick: 1.020 (11/21/24 11:44:00) Urine Appearance Urine Dipstick: Clear (11/21/24 11:44:00) Urine Color Urine Dipstick: Light yellow (11/21/24 11:44:00) Urobilinogen Urine Dipstick: Normal 0.2-1 EU/dl (11/21/24 11:44:00) pH Urine Dipstick: 6.5 (11/21/24 11:44:00) No fam hx of prostate ca. No flank pain. Result Comment: Electronical ly Signed By: Jennifer Nagel\.br\Date and Time Signed: 11/22/24 08:57 EST\.br\Electronically Co-Signed By: Marcin RAMÍREZ MD\.br\Date and Time Co-Signed: 12/02/24 11:56 EST PATIENT EDUCATION Observed: 11/21/2024 12:20 PM Status: F Source: [facility] Patient Education Nephrology Dietary Guidelines to Help [...] ? 8 oz (237 mL) of milk, pjadgak-qobrzgzbnbli-lbqsa milk, and calcium- fortifiedfruit juice. Calcium-fortified means that calcium has been [...] Armenian chard. ? Peanuts. ? Potato chips, tajik fries, and baked potatoes with skin on. ? Nuts and nut products. ? Chocolate. ??? If you regularly take a diuretic medicine, make sure to eat at least 1 or 2 servings of fruits or vegetables that are high in potassium each day. These include: ? Avocado. ? Banana. ? Salkum, prune, carrot, or tomato juice. ? Baked [...] fish oil, or vitamin B6. ??? Take xlrz-gmk-dajlhcw and prescription medicines only as told by your health care provider. These include supplements. What foods should I limit? Limit your intake of the following foods, or eat them as told by your dietitian. Vegetables Spinach. Rhubarb. Beets. Canned vegetables. Pickles. Olives. Baked potatoes with skin. Grains Wheat bran. Baked goods. Salted crackers. Cereals high in sugar. Meats and other proteins Nuts. Nut butters. Large portions of meat, poultry, or fish. Salted, precooked, or cured meats, such as sausages, meat loaves, and hot dogs. Dairy Cheeses. Beverages Regular soft drinks. Regular vegetable juice. Seasonings and condiments Seasoning blends with salt. Salad dressings. Soy sauce. Ketchup. Barbecue sauce. Other foods Canned soups. Canned pasta sauce. Casseroles. Pizza. Lasagna. Frozen meals. Potato chips. Cook Islander fries. The items listed above may not be a complete list of foods and beverages you should limit. Contact a dietitian for more information. What foods should I avoid? Talk to your dietitian about specific foods you should avoid based on the type of kidney stones you have and your overall health. Fruits Grapefruit. The item listed above may not be a complete list of foods and beverages you should avoid. Contact a dietitian for more information. Summary ??? Kidney stones are deposits of minerals and salts that form inside your kidneys. ??? You can lower your risk of kidney stones by making changes to your diet. ??? The most important thing you can do is drink enough fluid. Drink enough fluid to keep your urine pale yellow. ??? Talk to your dietitian about how much calcium you should have each day, and eat less salt and animal protein as told by your dietitian. This information is not intended to replace advice given to you by your health care provider. Make sure you discuss any questions you have with your health care provider. Document Revised: 02/12/2023 Document Reviewed: 02/12/2023 [employer] Mobile Patient Education ? 2023 IsentropicBrittney SCHREIBER Observed: 11/21/2024 12:00 AM Status: COMPLETED Source: [facility] Telephone (ANGEL) JAM TOSCANO ([id number]) 1965 M Date Time Provider Department 11/21/24 [...] toe 3 days ago. States this is braider tender with movement. Denies any change in [...] apt with me or any rheum ANGÉLICA (HEAD OF VISUAL MERCHANDISING or PA) who has opening soon. thank you kindly, Estephania Lara LPN 11/23/2024 8:01 AM Signed Please offer appt with Dr Dubon or HEAD OF VISUAL MERCHANDISING, if patient still interested. Franca RobersonJordyn 11/23/2024 9:[address] Dubon [...] by mouth. Problem List As Of Date 11/21/2024 Noted Resolved Rheumatoid arthritis with positive rheumatoid f*09/12/2015 Vitamin D deficiency [E55.9] 10/05/2015 Encounter for monitoring of etanercept therapy *02/07/2016 Ulcerative pancolitis (HCC) [K51.00] 02/05/2017 Osteoporosis [M81.0] 10/19/2018 Encounter Status:Closed by DARRIAN DUBON on 11/23/24 PROGRESS Observed: 10/05/2024 7:42 AM Status: COMPLETED Source: [facility] ID: [id number] Author: DARRIAN DUBON MD Service: ? Author Type: Physician Type: Progress Notes Filed: 10/16/2024 19:47 Note Text: FOLLOW UP VISIT Patient's Name: Jam [facility] [id number]: Jose L Lackey MD [facility] [place] [address] Consult Requested by: Jose L Lackey MD [address] [facility] [address]Srygi physicians: Blender Laborer prev. Nel Lebron MD (his prev. shearing shed hand left- Ronald Brown MD) ; Now following [...] No stiffness He is on sulfasalazine per shearing shed hand for his UC and this has been controlling his RA He is pleased with his treatment regimen He also states that his IBD is well controlled, states told is in remission, on Entyvio Doing exercise and working with interpersonal communications professor at the gym and will be going [...] in IBD and is following with local shearing shed hand for that. Has been on Humira since Sep 2020 (started with 80 mg loading dose and since has been on 40 mg every 2 wks) He was pleased with Enbrel response to his RA and later was switched to Humira, reports has similar benefit and is pleased with response. His shearing shed hand switched him to Humira for optimal mgt of IBD and he feels this has helped his IBD better. Reports still gets 8 BM's a day, does not have BM at night, does not have to wake up from sleep. Has been following with his shearing shed hand for his UC Had colonoscopy 11/22/2021 with reported marked improvement in asc/transv/desc colon and severe active in rectum, histopath with active colitis with erosions. States Dr. Lebron has started him on rectal enemas. Recent colonoscopy with reported active colitis. He tells me that he continues to have multiple BM's; His shearing shed hand prescribed pred. course, completed recently. No jt [...] us, he is on Humira per his Blender Laborer He is off Enbrel, was switched to Humira by his shearing shed hand. (previously was on Enbrel 25 mg twice a wk and has been in remission since on Enbrel and very pleased with his treatment regimen) He is on Humira 40 mg every 2 wks by his Blender Laborer He is on sulfasalazine, Humira and mesalamine enemas per his shearing shed hand I have reviewed benefits of a whole food plant based diet He consumes dairy, cheese, sausage, hamburger. I have advised him on avoiding meats and dairy and reviewed reports and patient experience with flare of IBD and RA, as well as gastrointestinal dysbiosis. I advised him on a whole foods plant based diet. 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 Urgent Care Technician: CODY Transcribe Date/Time: Feb 20 2021 9:52A [...] where has fallen arch. Has seen Manager Truck in the remote past for the fallen arch, not recently. Feels gets stiff when not moving as much. Denies any injury or trauma. Denies any pain to me today States his shearing shed hand has prescribed prednisone course due to IBD flare States after scope was told is flared. He is on sulfasalazine and budesonide and his shearing shed hand and since has switched him from Enbrel [...] Alk phos isoenz: liver fraction; followed by shearing shed hand He follows with his shearing shed hand for hi elev alk phos and AST and for bld with stools, Dr Brown: and states he started him on iron supplement States Dr. Brown prescribed metronidazole, for reported diarrhea. States felt it made a difference. States he gave him enemas and told that is for his ulcerative colitis and prescr. sulfasalazine. In 2019, has also followed with his shearing shed hand for blood with stools, and had flex sig and told he was inflamed from his Ulcerative colitis. [facility] 2018 [...] systems reviewed and are negative DXA Model: 39 Health W [id number] SITE SCANNED: Lumbar spine and left hip [...] were all normal. He follows with his shearing shed hand for his ulcerative colitis and is on sulfasalazine. He was told by his shearing shed hand to avoid sun exposure due to this med, had skin itching last summer. He had evaluation for elevated AST and alk phos. Alk phos has improved and AST has been borderline elevated. I have advised him to f/u with his shearing shed hand for his elevated alk phos (liver fraction) States his shearing shed hand did an US of his liver twice and was told was normal. He denies any alcohol consumption or acetaminophens. His isoenzyme indicated predom. of liver origin. The patient reports that his shearing shed hand completed evaluation and told his liver is fine. His liver US was unremarkable . His anemia has resolved since his UC has been controlled. States saw his shearing shed hand, Dr. Lebron, recently and states told him [...] and denies hematuria or dysuria. DXA Model: 39 Health W [id number] SITE SCANNED: Lumbar spine and left hip [...] states not bad . has seen a laboratory apparatus glass grinder in the past, in [place], Dr. Whitfield. States used to be on [...] 500mg q 6hrs. 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 Lackey Smoking: quit 2012 Alcohol as above IVDU: denies Industrial toxic exposures: denies FAMILY HISTORY: No family history on file. suspects his mother may have had RA Mother: CAD, CABG, COPD/emphysemia Father: passed from [facility] bother were smokers PERTINENT TESTS: Component Latest [...] Abs Lymph 1.00 - 4.00 k/uL 3.02 Cayey% 9.7 Abs Cay[place] 0.00 - 0.86 k/uL 0.79 Eosin% 0.0 [...] Negative Negative Ketones, Urine Negative Negative Specific [place], Ur 1.005 - 1.030 1.008 Hemoglobin/Blood,Ur Negative 3+ (A) pH, Urine 4.5 - 8.0 6.0 Protein, Urine Negative mg/dL Negative Urobilinogen Normal Normal Nitrites Negative Negative Leukest Negative Negative Comments SEE COMMENT Urine Adan Comment SEE COMMENT WBC, Urine 0 - 5 /HPF 0-5 RBC, Urine 0 - 3 /HPF >25 (A) Sm Antibody <1.0 AI <0.2 TOP LOADER Antibody <1.0 AI 1.2 (H) SSA Antibody <1.0 AI <0.2 SSB Antibody <1.0 AI <0.2 Centromere Ab <1.0 AI <0.2 Scleroderma Ab, IgG <1.0 AI <0.2 Milagro 1 Antibody <1.0 AI <0.2 Ribosomal TOP LOADER <1.0 AI <0.2 Chromatin Antibody <1.0 AI [...] Arthritis findings and DJD. Latest Ref Rng AND Units 01/17/2020 08/22/2020 12/01/2023 01/12/2024 CBC WBC [...] 1.18 1.38 2.11 1.84 Latest Ref Rng AND Units 01/17/2020 08/22/2020 12/01/2023 01/12/2024 CMP Sodium [...] U/L 135 171 211 Latest Ref Rng AND Units 01/26/2020 08/22/2020 Uric Acid Uric Acid 4.0 - 8.1 mg/dL 6.3 4.4 Latest Ref Rng AND Units 12/01/2023 01/12/2024 ESR, WSR WSR 0 - 15 mm/hr 114 34 Latest Ref Rng AND Units 12/01/2023 01/12/2024 CRP CRP <0.9 mg/dL 3.9 0.4 Latest Ref Rng AND Units 08/29/2015 RF and CCP Rheumatoid Factor <20 IU/mL 406 CCP Antibody, IgG <20 Units >250 Latest Ref Rng AND Units 08/29/2015 12/01/2023 Hepatitis Screen Hep B [...] Negative Negative Negative Negative Latest Ref Rng AND Units 08/29/2015 01/26/2020 Antibodies KURT Negative Positive KURT Titer Negative 1:80 KURT Pattern Atypical speckled DNA Antibody w/Confirmation <30 IU/mL <12 Sm Antibody <1.0 AI <0.2 Ribosomal TOP LOADER <1.0 AI <0.2 Chromatin Antibody <1.0 AI <0.2 SSA Antibody <1.0 AI <0.2 SSB Antibody <1.0 AI <0.2 TOP LOADER Antibody <1.0 AI 1.2 Scleroderma Ab, IgG <1.0 AI <0.2 Centromere Ab <1.0 AI <0.2 MILAGRO-1 ANTIBODY, IGG <1.0 AI <0.2 PT Sec 9.7 - 13.0 sec 10.3 PT INR 0.9 - 1.3 1.0 APTT 23.0 - 32.4 sec 25.4 Latest Ref Rng AND Units 08/29/2015 Urinalysis Protein, Urine Negative mg/dL Negative RBC, Urine 0 - 3 /HPF >25 Latest Ref Rng AND Units 08/29/2015 TPMT amd G6PD G6PD Scn [...] FINDINGS CONSISTENT WITH CHRONIC SEVERE RHEUMATOID ARTHRITIS. Urgent Care Technician: KETTY Transcribe Date/Time: Aug 29 2015 12:56P ... Last XR Ankle - Impression Only XR ANKLE GENERAL 3V AP/LAT/OBL LT Exam End: 02/20/2021 8:42 AM (Final result) Impression: IMPRESSION: Arthritic changes demonstrating interval progression in this patient with known rheumatoid arthritis. Urgent Care Technician: CODY Transcribe Date/Time: Feb 20 2021 9:52A [...] its performance characteristics determined by [facility] [place] ([facility]). It has not been cleared or approved by the FDA. [facility] is regulated under CLIA as [...] 147 53 - 334 mg/dL Final MPA [place], Serum Date Value Ref Range Status 08/19/2018 1,020 534 - 1,267 mg/dL Final MPA Lambda, Serum Date Value Ref Range Status 08/19/2018 551 253 - 653 mg/dL Final MPA [place]/Lambda Ratio Date Value Ref Range Status [...] , Gender: Male SCANNER INFORMATION: DXA Model: 39 Health W [id number] SITE SCANNED: Lumbar spine and left hip [...] machine for accurate comparison. FOR MORE INFORMATION: [facility] Center for Osteoporosis and Metabolic Bone Disease: www.ccf.org/arthritis/osteo National Osteoporosis Foundation: www.nof.org International Society of Clinical Densitometry www.iscd.org Urgent Care Technician: [id number] Transcribe Date/Time: Sep 23 2022 10:28A Dictated [...] kg (171 lb 4.8 oz) BMI 27.66 kg/m? afebrile, VSS General Appearance: WD/WN, NAD. Appropriate [...] involving multiple sites with positive rheumatoid factor ([facility]) Z79.899 On sulfasalazine therapy K51.00 Ulcerative pancolitis ([facility]) Comment: On SSZ and Entyvio, [...] in patient's severe chronic Rheumatoid Arthritis. His shearing shed hand has switched him to Humira as he [...] to receive intermittent steroid therapy from his shearing shed hand. Pharmacologic therapy is still indicated and recommended, [...] Also received labs per Primary care physician, Blender Laborer -The patient's shearing shed hand follows him for his UC, anemia and liver tests. He is on Entyvio and sulfasalazine per his Blender Laborer RA med: none from rheum, doing well on sulfasalazine, prescribed by GI (He was prev. on Enbrel 25 mg sq twice a week, or may switch to Humira if his shearing shed hand switched him to Humira TNF inhibitor therapy, [...] on sulfasalazine for his IBD per his shearing shed hand OP med: Received Reclast infusion, 5 mg IV on 05/09/2024 well tolerated Further infusions will be determined based on recheck DXA and CTX, or if on systemic steroids. As previously discussed, his OP med of choice is IV Reclast Oral bisphosphonate contraindicated due to his IBD and gastrointestinal disease. Osteoporosis was likely due to previous exterminator helper steroid therapy by other physicians over the [...] atypical and subtroch. fracture of femur with mcfp use of bisphosphonates/alendronate and anti-resorptive agents, there [...] wished to proceed. Previous orders -CONSULT TO REGULATORY MANAGER -CONSULT TO PODIATRY Provided referral to OT for assistive devices, exercises to preserve left function Referral to supervisor gas meter repair for foot/ankle deformities and callus care, inserts/braces/orthotics, [...] which included preparing to see the patient, [id number] patient care, completing clinical documentation, obtaining and/or [...] appropriate immunization recommended. -Continued follow up with shearing shed hand for IBD management and monitoring for liver [...] Darrian Fischer MD Jose L Lackey MD [address] [place], [place] [id number] CNOV Observed: 10/05/2024 7:20 AM Status: COMPLETED Source: [facility] Office Visit (ANGEL) OPALJAM DONALD ([id number]) 1965 M Date Time Provider Department 10/05/24 7:20 AM DARRIAN DUBON During your visit today, we recorded the following information about you: Pulse Blood pressure Weight 66/minute 128/76 77.7 kg Darrian Dubon MD 10/16/2024 7:47 PM Signed FOLLOW UP VISIT Patient's Name: Jam Murguiajaredrakesh [place] [id number] PCP: Jose L Lackey MD [address] [place] [phone] Consult Requested by: Jose L Lackey MD [address] [place], [place] [id number] Other physicians: Blender Laborer prev. Nel Lebron MD (his prev. shearing shed hand left- Ronald Brown MD) ; Now following [...] No stiffness He is on sulfasalazine per shearing shed hand for his UC and this has been controlling his RA He is pleased with his treatment regimen He also states that his IBD is well controlled, states told is in remission, on Entyvio Doing exercise and working with interpersonal communications professor at the gym and will be going [...] in IBD and is following with local shearing shed hand for that. Has been on Humira since Sep 2020 (started with 80 mg loading dose and since has been on 40 mg every 2 wks) He was pleased with Enbrel response to his RA and later was switched to Humira, reports has similar benefit and is pleased with response. His shearing shed hand switched him to Humira for optimal mgt of IBD and he feels this has helped his IBD better. Reports still gets 8 BM's a day, does not have BM at night, does not have to wake up from sleep. Has been following with his shearing shed hand for his UC Had colonoscopy 11/22/2021 with reported marked improvement in asc/transv/desc colon and severe active in rectum, histopath with active colitis with erosions. States Dr. Lebron has started him on rectal enemas. Recent colonoscopy with reported active colitis. He tells me that he continues to have multiple BM's; His shearing shed hand prescribed pred. course, completed recently. No jt [...] us, he is on Humira per his Blender Laborer He is off Enbrel, was switched to Humira by his shearing shed hand. (previously was on Enbrel 25 mg twice a wk and has been in remission since on Enbrel and very pleased with his treatment regimen) He is on Humira 40 mg every 2 wks by his Blender Laborer He is on sulfasalazine, Humira and mesalamine enemas per his shearing shed hand I have reviewed benefits of a whole food plant based diet He consumes dairy, cheese, sausage, hamburger. I have advised him on avoiding meats and dairy and reviewed reports and patient experience with flare of IBD and RA, as well as gastrointestinal dysbiosis. I advised him on a whole foods plant based diet. 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 Urgent Care Technician: CODY Transcribe Date/Time: Feb 20 2021 9:52A [...] , feels needs to pull bones apart. [facility] arch. Has seen Manager Truck in the remote past for the fallen arch, not recently. Feels gets stiff when not moving as much. Denies any injury or trauma. Denies any pain to me today States his shearing shed hand has prescribed prednisone course due to IBD flare States after scope was told is flared. He is on sulfasalazine and budesonide and his shearing shed hand and since has switched him from Enbrel [...] Alk phos isoenz: liver fraction; followed by shearing shed hand He follows with his shearing shed hand for hi elev alk phos and AST and for bld with stools, Dr Brown: and states he started him on iron supplement States Dr. Brown prescribed metronidazole, for reported diarrhea. [facility] felt it made a difference. [facility] he gave him enemas and told that is for his ulcerative colitis and prescr. sulfasalazine. In 2019, has also followed with his shearing shed hand for blood with stools, and had flex sig and told he was inflamed from his Ulcerative colitis. [facility] had colonosc and EGD in 2018 and was told were good. Told his bld in stools from his UC and patient states notices also mucus when wipes. [facility] had increased his sulfasalazine dose. [facility] also notices that dairy and cheese caused really bad inflammation from these and has avoided since. [facility] also avoids coffee and consumes green [...] systems reviewed and are negative DXA Model: 39 Health W [id number] SITE SCANNED: Lumbar spine and left hip [...] were all normal. He follows with his shearing shed hand for his ulcerative colitis and is on sulfasalazine. He was told by his shearing shed hand to avoid sun exposure due to this med, had skin itching last summer. He had evaluation for elevated AST and alk phos. Alk phos has improved and AST has been borderline elevated. I have advised him to f/u with his shearing shed hand for his elevated alk phos (liver fraction) States his shearing shed hand did an US of his liver twice and was told was normal. He denies any alcohol consumption or acetaminophens. His isoenzyme indicated predom. of liver origin. The patient reports that his shearing shed hand completed evaluation and told his liver is fine. His liver US was unremarkable . His anemia has resolved since his UC has been controlled. States saw his shearing shed hand, Dr. Lebron, recently and states told him [...] and denies hematuria or dysuria. DXA Model: 39 Health W [id number] SITE SCANNED: Lumbar spine and left hip [...] states not bad . has seen a laboratory apparatus glass grinder in the past, in [place], Dr. Whitfield. [...] 500mg q 6hrs. Reports benefit and his shearing shed hand took him off the iron supplement as [...] Dactylitis: no H/o precedent/frequent infection(s): as above Enthesopathy/[place]'s/heel/plantar tenderness: no Skin thickening, psoriasis, photosensitivity, purpura: no Nail changes: no Alpecia, patchy: no; has MPB Eye inflammation: no SICCA: no Oral/nasal/genital ulcers: no GI problems-diarrhea/bleeding/IBD/Gluten intolerence/Dysphagia: as above Raynaud's phenomenon/digital ulcers: no Organ inv-Serositis: no Lung disease/ILD: no Myopathy/proximal muscle weakness: no Abnormal Urine or urethritis: no Renal disease: no CARGO AND RAMP SERVICES MANAGER/PNS disease: no and denies MS HEME-Cytopenias/LAD/Clots: [...] recombinant (SHINGRIX) 03/17/2022 06/09/2022 Pneumovax : 2015, and then 13 Flu shot : y, [...] Status: Single denies children 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 Lackey Smoking: quit [...] Abs Lymph 1.00 - 4.00 k/uL 3.02 Cay[place]% 9.7 Abs [place] 0.00 - 0.86 k/uL 0.79 Eosin% 0.0 [...] Negative Negative Ketones, Urine Negative Negative Specific [place], Ur 1.005 - 1.030 1.008 Hemoglobin/Blood,Ur Negative 3+ (A) pH, Urine 4.5 - 8.0 6.0 Protein, Urine Negative mg/dL Negative Urobilinogen Normal Normal Nitrites Negative Negative Leukest Negative Negative Comments SEE COMMENT Urine Adan Comment SEE COMMENT WBC, Urine 0 - 5 /HPF 0-5 RBC, Urine 0 - 3 /HPF >25 (A) Sm Antibody <1.0 AI <0.2 TOP LOADER Antibody <1.0 AI 1.2 (H) SSA Antibody <1.0 AI <0.2 SSB Antibody <1.0 AI <0.2 Centromere Ab <1.0 AI <0.2 Scleroderma Ab, IgG <1.0 AI <0.2 Milagro 1 Antibody <1.0 AI <0.2 Ribosomal TOP LOADER <1.0 AI <0.2 Chromatin Antibody <1.0 AI [...] Arthritis findings and DJD. Latest Ref Rng AND Units 01/17/2020 08/22/2020 12/01/2023 01/12/2024 CBC WBC [...] 1.18 1.38 2.11 1.84 Latest Ref Rng AND Units 01/17/2020 08/22/2020 12/01/2023 01/12/2024 CMP Sodium [...] U/L 135 171 211 Latest Ref Rng AND Units 01/26/2020 08/22/2020 Uric Acid Uric Acid 4.0 - 8.1 mg/dL 6.3 4.4 Latest Ref Rng AND Units 12/01/2023 01/12/2024 ESR, WSR WSR 0 - 15 mm/hr 114 34 Latest Ref Rng AND Units 12/01/2023 01/12/2024 CRP CRP <0.9 mg/dL 3.9 0.4 Latest Ref Rng AND Units 08/29/2015 RF and CCP Rheumatoid Factor <20 IU/mL 406 CCP Antibody, IgG <20 Units >250 Latest Ref Rng AND Units 08/29/2015 12/01/2023 Hepatitis Screen Hep B [...] Negative Negative Negative Negative Latest Ref Rng AND Units 08/29/2015 01/26/2020 Antibodies KURT Negative Positive KURT Titer Negative 1:80 KURT Pattern Atypical speckled DNA Antibody w/Confirmation <30 IU/mL <12 Sm Antibody <1.0 AI <0.2 Ribosomal TOP LOADER <1.0 AI <0.2 Chromatin Antibody <1.0 AI <0.2 SSA Antibody <1.0 AI <0.2 SSB Antibody <1.0 AI <0.2 TOP LOADER Antibody <1.0 AI 1.2 Scleroderma Ab, IgG <1.0 AI <0.2 Centromere Ab <1.0 AI <0.2 MILAGRO-1 ANTIBODY, IGG <1.0 AI <0.2 PT Sec 9.7 - 13.0 sec 10.3 PT INR 0.9 - 1.3 1.0 APTT 23.0 - 32.4 sec 25.4 Latest Ref Rng AND Units 08/29/2015 Urinalysis Protein, Urine Negative mg/dL Negative RBC, Urine 0 - 3 /HPF >25 Latest Ref Rng AND Units 08/29/2015 TPMT amd G6PD G6PD Scn [...] FINDINGS CONSISTENT WITH CHRONIC SEVERE RHEUMATOID ARTHRITIS. Urgent Care Technician: [facility] Transcribe Date/Time: Aug 29 2015 12:56P ... Last XR Ankle - Impression Only XR ANKLE GENERAL 3V AP/LAT/OBL LT Exam End: 02/20/2021 8:42 AM (Final result) Impression: IMPRESSION: Arthritic changes demonstrating interval progression in this patient with known rheumatoid arthritis. Urgent Care Technician: CODY Transcribe Date/Time: Feb 20 2021 9:52A [...] its performance characteristics determined by [facility] [place] ([facility] It has not been cleared or approved by the FDA. -[facility] is regulated under CLIA as qualified [...] 147 53 - 334 mg/dL Final MPA [place], Serum Date Value Ref Range Status 08/19/2018 1,020 534 - 1,267 mg/dL Final MPA [place], Serum Date Value Ref Range Status 08/19/2018 551 253 - 653 mg/dL Final MPA [place]/Lambda Ratio Date Value Ref Range Status [...] , Gender: Male SCANNER INFORMATION: DXA Model: 39 Health W [id number] SITE SCANNED: Lumbar spine and left hip [...] accurate comparison. FOR MORE INFORMATION: [facility] Center for Osteoporosis and Metabolic Bone Disease: www.ccf.org/arthritis/osteo National Osteoporosis Foundation: www.nof.org International Society of Clinical Densitometry www.iscd.org Urgent Care Technician: [id number] Transcribe Date/Time: Sep 23 2022 10:28A Dictated [...] kg (171 lb 4.8 oz) BMI 27.66 kg/m? afebrile, VSS General Appearance: WD/WN, NAD. Appropriate [...] in patient's severe chronic Rheumatoid Arthritis. His shearing shed hand has switched him to Humira as he [...] to receive intermittent steroid therapy from his shearing shed hand. Pharmacologic therapy is still indicated and recommended, [...] Also received labs per Primary care physician, Blender Laborer -The patient's shearing shed hand follows him for his UC, anemia and liver tests. He is on Entyvio and sulfasalazine per his Blender Laborer RA med: none from rheum, doing well on sulfasalazine, prescribed by GI (He was prev. on Enbrel 25 mg sq twice a week, or may switch to Humira if his shearing shed hand switched him to Humira TNF inhibitor therapy, [...] on sulfasalazine for his IBD per his shearing shed hand OP med: Received Reclast infusion, 5 mg IV on 05/09/2024 well tolerated Further infusions will be determined based on recheck DXA and CTX, or if on systemic steroids. As previously discussed, his OP med of choice is IV Reclast Oral bisphosphonate contraindicated due to his IBD and gastrointestinal disease. Osteoporosis was likely due to previous exterminator helper steroid therapy by other physicians over the [...] atypical and subtroch. fracture of femur with mcfp use of bisphosphonates/alendronate and anti-resorptive agents, there [...] wished to proceed. Previous orders -CONSULT TO REGULATORY MANAGER -CONSULT TO PODIATRY Provided referral to OT for assistive devices, exercises to preserve left function Referral to supervisor gas meter repair for foot/ankle deformities and callus care, inserts/braces/orthotics, [...] which included preparing to see the patient, [id number] patient care, completing clinical documentation, obtaining and/or [...] appropriate immunization recommended. -Continued follow up with shearing shed hand for IBD management and monitoring for liver [...] Fischer MD cc Jose L Lackey MD [address] [facility] [id number] Darrian Dubon MD 10/05/2024 8:02 AM Signed -PLEASE NOTE THAT WE REVIEW ALL YOUR TEST RESULTS AT YOUR NEXT FOLLOW UP VISIT WITH YOU. IF ANY ABNORMAL LAB REQUIRES SOONER ATTENTION, WE WILL CONTACT YOU. -If you have signed up on MyChart, we will release your test results through [address]. I wish you the best of health [...] track your nutrition and calcium intake on www.PlastiPure.MalibuIQ This provides macro and micronutrient intake and requirements. - You can track your calcium intake on [employer] or any other calcium tracker of your [...] youtube and copy and paste this link: [email or web address] This is done by a Physical Medicine and Rehab doctor who is a social work professor in [facility]. She completed a PhD at the [employer] [facility]. I hope you find it helpful. [...] hazelnuts, legumes, soybeans and other beans) - [place] (potatoes, avocados, almonds, peanuts) - Chromium (broccoli, [...] Eur J Clin Nutr 62, 155-161 (2008). https://doi.org/10.1038/sj.ejcn.9060266 -Clyde Rosa, Trisha Lara, Harry De Leon. et al. Isoflavone intervention and its impact on bone mineral density in postmenopausal women: a systematic review and meta-analysis of randomized controlled trials. Osteoporos Int (2022). https://doi.org/10.1007/z78148-859-47895-c -Sansai, K., Trisha Lara, Andrez Grant. et al. Effects of isoflavone interventions on bone mineral density in postmenopausal women: a systematic review and meta-analysis of randomized controlled trials. Osteoporos Int 31, 4456-2833 (2020). https://doi.org/10.1007/m28605-236-49123-i - Benefits of consuming soy in whole foods are listed in this article at the [facility] website: https://www.pcr.org/good-nutrition/nutrition-information/swx-aoq-ngeqns - Prunes have been reported to help [...] Am J Clin Nutr. 2021 6;116(4):897-910. doi: 10.1093/ajcn/sxtk789. PMID: 80402748. -Benefit to bone density and inflammation: Hebert WYMAN, Perrin, Glory HL, Sivakumar ALDANA, Trey CUBA. The Role of Prunes in Modulating Inflammatory Pathways to Improve Bone Health in Postmenopausal Women. Adv Nutr. 2021 2;13(5):9281-3431. doi: 10.1093/advances/auca924. PMID: 31782869; PMCID: [id number]. - Information on Vitamin K2: more recently [...] with the exception of Natto (a traditional Somali food made from fermented soybeans) has high [...] of these foods, please consult with your Cyber Intelligence Analyst or Physician first. Review of Osteoporosis medications [...] in the office. This medication is given exterminator helper, indefinitely. Prolia should not be discontinued [...] looked into transition therapy. Recent study from [facility] Slim et al, 04/11/2020 (PMID: 42217792.The study is ongoing, clinicaltrials.gov; [id number]), reported one infusion of IV Reclast did [...] initiated in patients who have had an UT or stroke in the preceding year or those considered high risk. We may need a clearance from a Assayer Helper prior to proceeding with this medication in [...] and the different available medications at the [place] [employer] website at: https://www.rheumatology.org/I-Am-A/Patient-Caregiver/Diseases-Conditions/Osteo- porosis - Additional information on Bone Health and [...] swallow - They should dissolve easily in ? cup of vinegar in < 15 minutes. [...] following resources: www.nof.org (National Osteoporosis Foundation) http://www.osteo.org/osteolinks.asp [place] [employer] [facility]: 2-774-191-BONE [facility] Calcium Information [place]: Non-Dairy, Plant based Milk, can contain in1 glass up to 450 mg of calcium (300 to 450 mg) Exampled include Oat Milk, Flax Milk, Seaman Milk, Cashew Milk, Soy Milk, Peas Milk Examples of Food Sources of Calcium from NIH Food Milligrams (mg) per serving Percent DV* Soymilk, calcium-fortified, 8 ounces 299 30 Salkum juice, calcium-fortified, 6 ounces 261 26 Tofu, firm, made with calcium sulfate, ? cup* 253 25 Tofu, soft, made with calcium sulfate, ? cup* 138 14 Opejb-zq-sim cereal, calcium-fortified, 1 cup 100-1,000 10-100 Turnip greens, fresh, boiled, ? cup 99 10 Kale, raw, chopped, 1 cup 100 10 Kale, fresh, cooked, 1 cup 94 9 Monegasque cabbage, bok marin, raw, shredded, 1 cup 74 7 Bread, white, 1 slice 73 7 Tortilla, corn, mecxf-dh-yzgo/marshall, one 6? diameter 46 5 Tortilla, flour, aftal-sz-nznm/marshall, one 6? diameter 32 3 Bread, whole-wheat, 1 slice 30 3 Broccoli, raw, ? cup 21 2 * DV = Daily Value. DVs were developed by the U.S. Food and Drug Administration to help consumers compare the nutrient contents among products within the context of a total daily diet. The U.S. Department of Agriculture?s (USDA?s) Nutrient Database Web site lists the nutrient [...] daily with a meal; Certain patients require 4903-3712 international units daily and in patients deficient [...] bones. Studies show approximately 50% of [place] men and women are vitamin D deficient [...] Additional Information is available from: [facility] Osteoporosis Information: https://my.[facility].org/departments/orthopaedics-rheumatology/depts/oste- oporosis-metabolic The Bone Health and Osteoporosis Foundation (formerly the National Osteoporosis Foundation) : https://www.bonehealthandosteoporosis.org International Osteoporosis Foundation: https://www.osteoporosis.foundation http://ods.od.nih.gov/factsheets/vitamind.asp National Institutes of Health: 9-677-198-BONE The Calcium Information [place]: I recommend following a healthy lifestyle. You [...] track your nutrition and calcium intake on www.PlastiPure.MalibuIQ This provides macro and micronutrient intake and [...] that features the Whole Plant Based diet, [place] over knives (see video online and visit website). Another movie that was recently released is: Eating You Alive (you can find it at [employer]) and The Game Changers movie Dr. Fauzia Ansari is a [facility] physician who has done research and published books, is an expert in Whole Plant based diet for prevention and reversal of heart disease. His website is [employer]. His research highlights the benefits of the Whole food plant based diet in reversing and preventing heart disease. Mrs. Cookie Ansari (his ) has a cookbook with many recipes on whole plant based food: The Prevent and Reverse Heart Disease cookbook. Cookie and Yamile Parthanickie have a cooking show on YouTube called: Plant-Based with Yamile Coty and Cookie Coty. You can also consider reading his son, Eze Ansari's book: The Engine 2 cookbook Eze is a retired silk screen printer who has helped many people get healthier [...] multiple free videos and YouTube, for example: https://youBright.mdu.be/utqVrylE4u9 , https://youBright.mdu.be/OkZGGfdlq1i He has written multiple books, including Power Food for the Brain, The Cheese Trap, Dr. Rock Velazco's Program for Reversing Diabetes, Your Body in Balance You can also watch YouTube channel : The Doc AND Parts Classifier Dr. Anthony Carlson has shown the benefit of a starch based whole food plant based diet to his Rheumatoid Arthritis patients, as well as patient with diabetes II, hypertension, obesity, multiple sclerosis, heart disease, acne, and other, his website: www.debra.MalibuIQ Dr. Yayo Allred is a renowned bioinformatics computer scientist, who has studied and researched the benefits of the Whole plant based diet. He has also researched the adverse effects of animal proteins on health. He presents many of his research findings in his book The [place] study. Dr. Gerber Becker has completed many research trials proving the reversal of diseases, such as heart disease and early prostate cancer, with healthy lifestyle and the Whole Plant based diet. Dr. Gerber Becker website is: www.dagoberto.MalibuIQ His new book: Undo It, has evidence based information and guide to following this healthy lifestyle. Dr. Cody Dillon has dedicated a website and additional time to reviewing all food related articles and research and presents them in his power point presentation and on his website at: nutritionfacts.org which is all free. Dr. Dillon has multiple free videos and YouTube, for example https://Akamedia.Likva/aSgNkhgVtks and [email or web address].Likva/lXXXygDRyBU. He has written multiple books including: How Not To and How Not To Diet He is now working on his next book: How Not To Age Dr. Danitza Dash (from the [facility]), has articles on the following website: MemberTender.com For additional ideas on recipes, you could find additional information on practical to follow recipes by reading or watching online and YouTube such as: Parts Classifier AJ, Cooking With Plants, The Vegan Corner (recipes from an Congolese Parts Classifier), The Whole Foods Plant Based Cooking Show and visiting the provided websites for additional information on the whole plant based benefit and cooking recipes. You can also consider watching the vlogs of some of the plant based Athletes such as Fausto Ewing Derek on [employer]. You can find very good recipes for [...] Dr. Ignacio Degroot Lifestyle Medicine (is a Assayer Helper and Lifestyle Medicine Physician) -Sometimes it helps to start with a simple diet of potatoes, that Dr. Carlson calls Antoniettaduc Carrie. You can learn more about that in his website: www.RealtyAPX This is the website for Yarelis Butler pdf : https://www.RealtyAPX/wp-content/uploads//Georgiana-Carrie_Website_Print- _Version-1.pdf You can also read more on Dr. Carlson's website - When you goal is to lose weight, it is important to listen to your hunger cues. Don't eat until you are stuffed. As soon as you feel you are no longer hungry, stop eating. There is a Somali saying that says Tammie Vega, meaning eat until you are 80% full. I say avoid eating past 80% of your stomach fullness. This originated from the city of [facility], which is one of the sites reported in the [place] book, one of the highest cities in the world for having the most centenarians. Remember your stomach needs space and capacity for proper digestion of your food. Like a non food receiving clerk or a filler blender, they have a limit for proper function, and should not be filled to the top. You can read more about that from the [facility] article Don?t Eat Until You?re Full ? Instead, Mind Your Tammie [place] , at https://health.[facility].org/yhky-ldu-vzthj-pnlwe-ctzx-whlwibh-mind-your-- afbq-ibdna-ky-point/ Most plants contain proteins and all essential [...] also important to ensure they are 3rd constitution party tested to avoid contaminants. You can track your macros on a nutrition tracker such as cronometer or Inventarium.mobipal and others. Dr. Maryan Holguin (a psychiatrist [...] you will need to consult with a shearing shed hand to have further evaluation to exclude Celiac [...] soda and water (see details from Dr. Yañze's website nutritionfacts.org) and rinse well with water. 2- Regular Exercise, such as beginner yoga, tommie chi, stretching, cardio, lifting weights/gradual strengthening, pool therapy, physical therapy Come As You Are: YOGA - Gentle Yoga Anyone Can Do Anywhere www.InfoDif.MalibuIQ/yoga Also on youtube: yoga with Karlie For women, especially after menopause, strength training is important. You can read more on that from Clare Morley, PhD at her website https://www.GoEuro and YouTube videos. If you are a beginner, it is best to start with a physical therapist or interpersonal communications professor. There are also several Aps that offer [...] can find more at the [facility] Website on : https://my.[facility].org/departments/wellness/store/go-well#sleep-tab 4- Stress management, be happy, laugh [...] Timer Meditation Stress Free Now ([facility]). You can find more resources at the [facility] website at : https://my.[facility].org/departments/wellness/store/go-well#cbsqne-esgq-w- ab There are many free youtube videos on guided meditation as well For Breathing techniques: You can watch John Carlisle and learn the breathing technique and its benefits by watching the following YouTube: https://[email or web address].mdu.be/[email or web address]?si=-[email or web address]. Learning about your awareness/spiritual being, is very [...] work with a psychotherapist or behavioral health classroom technology coach. When having a psychiatric condition, it [...] or a higher dose. Raw: Garlic, Cilantro, [place] nuts, Pumpkin seeds, [place] seeds and Flax seed powder have been reported to help with certain metal detoxification such as mercury. Victoria-3 plant based rich foods are good anti-inflammatory [...] the Whole Plant Based Diet, by watching [place] over Yovigo movie and then review website. There are many other resources and educational information on the Whole plant based diet on the Internet and documentaries. There are other resources for wellness that you can also benefit from, such as the [facility] Wellness website, [facility] and includes Plant based and Mediterranean diet, yoga and meditation. Please avoid all dairy products. You could use non-dairy milk such as Flax milk, Cashew milk, Seaman milk, Rice milk, Oat milk or Hemp [...] below, just add the ingredients to your filler blender and blend: - Probably the healthiest smoothie is one that contains mostly green leafy vegetables (especially containing kale), some berries, flax seed and water. This might not stock turner to be sweet. You can add one or two pitted dates or a frozen banana for natural sweetness. Examples of healthy green smoothies, pack your filler blender (at least half way to 3/) with a mix of green leafy veggies, then top your filler blender with fruits (such as banana or [...] risk for kidney stones. The same with lebanese chards and beet leaves. If you don't [...] health and wellbeing. At the [facility], we work as a team for your care, along with Nurse Practitioners, Physician Assistants, Nurses and Medical Assistants. It is a privilege and honor to serve you. Thank you for choosing [facility] for your healthcare. Sincerely, Darrian Dubon MD BONE MINERAL DENSITY PATIENT INSTRUCTIONS Bone mineral density testing measures the amount [...] you can resume your usual activities immediately. Allergies As of Date: 10/05/2024 (No Known Allergies) Date Reviewed: 10/05/2024 Reviewed by: Henrique Cordoba MA - Fully Assessed Reason for Visit: Follow Up [171] Primary Visit Diagnosis:Seropositive rheumatoid arthritis (HCC) [M05.9] Other Visit Diagnoses:Rheumatoid arthritis involving multiple sites with positive rheumatoid factor (HCC) [M05.79] On sulfasalazine therapy [Z79.899] Ulcerative pancolitis (HCC) [K51.00] Comment:On SSZ and Entyvio, managed by GI Other osteoporosis without current pathological fracture [M81.8] History of bisphosphonate therapy [Z92.29] Counseling on health promotion and disease prevention [Z71.89] Order(s):COMPLETE BLOOD COUNT AND DIFFERENTIAL [SQCBCDIF] Order #: [id number] FUTURE C-REACTIVE PROTEIN [SQCRP] Order #: [id number] FUTURE VITAMIN D 25 HYDROXY [SQVITD] Order #: [id number] FUTURE RENAL FUNCTION PANEL [SQRFP] Order #: [id number] FUTURE C TELOPEPTIDE, BETA [SQCTELO] Order #: [id number] FUTURE DXA-AXIAL SKELETON [1801693] Order #: [id number] FUTURE BD DXA TRABECULAR BONE SCORE (TBS) [1538656] Order #: [id number] FUTURE Prescriptions as of 10/16/2024 - ENTYVIO 300 mg injection - sulfaSALAzine [...] by mouth. Problem List As Of Date 10/05/2024 Noted Resolved Rheumatoid arthritis with positive rheumatoid f*09/12/2015 Vitamin D deficiency [E55.9] 10/05/2015 Encounter for monitoring of etanercept therapy *02/07/2016 Ulcerative pancolitis (HCC) [K51.00] 02/05/2017 Osteoporosis [M81.0] 10/19/2018 Other instructions from your clinician: -PLEASE NOTE THAT WE REVIEW ALL YOUR TEST RESULTS AT YOUR NEXT FOLLOW UP VISIT WITH YOU. IF ANY ABNORMAL LAB REQUIRES SOONER ATTENTION, WE WILL CONTACT YOU. -If you have signed up on [address], we will release your test results through [address]. I wish you the best of health [...] track your nutrition and calcium intake on www.Pixelle This provides macro and micronutrient intake and requirements. - You can track your calcium intake on Pixelle or any other calcium tracker of your [...] youtube and copy and paste this link: [email or web address] This is done by a Physical Medicine and Rehab doctor who is a social work professor in [employer]. She completed a PhD at the [employer]. I hope you find it helpful. [...] hazelnuts, legumes, soybeans and other beans) - Nokomis (potatoes, avocados, almonds, peanuts) - Chromium (broccoli, [...] Eur J Clin Nutr 62, 155-161 (2007). https://doi.org/10.1038/sj.ejcn.0127731 -Clyde Rosa Na Takuathung, M., Harry De Leon. et al. Isoflavone intervention and its impact on bone mineral density in postmenopausal women: a systematic review and meta-analysis of randomized controlled trials. Osteoporos Int (2022). https://doi.org/10.1007/g13653-832-13124-w -Jack Finch, Trisha Lara, Clyde Grant et al. Effects of isoflavone interventions on bone mineral density in postmenopausal women: a systematic review and meta-analysis of randomized controlled trials. Osteoporos Int 31, 6584-5483 (2020). https://doi.org/10.1007/b99006-440-98116-d - Benefits of consuming soy in whole foods are listed in this article at the [facility] website: https://www.pcr.org/good-nutrition/nutrition-information/zrt-ouh-tgccpo - Prunes have been reported to help with bone density and inflammation, and are also beneficial for the gut microbiome and constipation. -The Prune Study article: Perrin, Sivakumar ALDANA, Jordy NI, Edouard H, Flor KJ, Trey Watters, Ferrheriberto MG, Nakvivi CH, Stewart C. Prunes preserve hip bone mineral density in a 12-month randomized controlled trial in postmenopausal women: the Prune Study. Am J Clin Nutr. 2021 6;116(4):897-910. doi: 10.1093/ajcn/kymt730. PMID: 69974289. -Benefit to bone density and inflammation: Hebert WYMAN, Perrin, Glory HL, Sivakumar ALDANA, Trey CUBA. The Role of Prunes in Modulating Inflammatory Pathways to Improve Bone Health in Postmenopausal Women. Adv Nutr. 2021 2;13(5):3494-2204. doi: 10.1093/advances/geap062. PMID: 26776903; PMCID: [id number]. - Information on Vitamin K2: more recently [...] with the exception of Natto (a traditional Somali food made from fermented soybeans) has high [...] of these foods, please consult with your Cyber Intelligence Analyst or Physician first. Review of Osteoporosis medications [...] in the office. This medication is given exterminator helper, indefinitely. Prolia should not be discontinued [...] looked into transition therapy. Recent study from [facility] Slim et al, 04/11/2020 (PMID: 15921036.The study is ongoing, clinicaltrials.gov; [id number]), reported one infusion of IV Reclast did [...] initiated in patients who have had an UT or stroke in the preceding year or those considered high risk. We may need a clearance from a Assayer Helper prior to proceeding with this medication in [...] and the different available medications at the [place] [employer] website at: https://www.rheumatology.org/I-Am-A/Patient-Caregiver/Diseases-Conditions/O steoporosis - Additional information on Bone Health and [...] swallow - They should dissolve easily in ? cup of vinegar in < 15 minutes. [...] following resources: www.nof.org (National Osteoporosis Foundation) http://www.osteo.org/osteolinks.asp [facility]: 0-539-548-BONE The Calcium Information Childress: Non-Dairy, Plant based Milk, can contain in1 glass up to 450 mg of calcium (300 to 450 mg) Exampled include Oat Milk, Flax Milk, Seaman Milk, Cashew Milk, Soy Milk, Peas Milk Examples of Food Sources of Calcium from [facility] Food Milligrams (mg) per serving Percent DV* Soymilk, calcium-fortified, 8 ounces 299 30 Salkum juice, calcium-fortified, 6 ounces 261 26 Tofu, firm, made with calcium sulfate, ? cup* 253 25 Tofu, soft, made with calcium sulfate, ? cup* 138 14 Qdjdg-jp-srd cereal, calcium-fortified, 1 cup 100-1,000 10-100 Turnip greens, fresh, boiled, ? cup 99 10 Kale, raw, chopped, 1 cup 100 10 Kale, fresh, cooked, 1 cup 94 9 Monegasque cabbage, EyeGate Pharmaceuticalsk marin, raw, shredded, 1 cup 74 7 Bread, white, 1 slice 73 7 Tortilla, corn, rseow-yt-exkv/marshall, one 6? diameter 46 5 Tortilla, flour, fdrqd-mi-bnpe/marshall, one 6? diameter 32 3 Bread, whole-wheat, 1 slice 30 3 Broccoli, raw, ? cup 21 2 * DV = Daily Value. DVs were developed by the U.S. Food and Drug Administration to help consumers compare the nutrient contents among products within the context of a total daily diet. The U.S. Department of Agriculture?s (USDA?s) Nutrient Database Web site lists the nutrient [...] daily with a meal; Certain patients require 0206-7908 international units daily and in patients deficient [...] bones. Studies show approximately 50% of [place] men and women are vitamin D deficient [...] Additional Information is available from: [facility] Osteoporosis Information: https://my.[facility].org/departments/orthopaedics-rheumatology/depts/ osteoporosis-metabolic The Bone Health and Osteoporosis Foundation (formerly the National Osteoporosis Foundation) : https://www.bonehealthandosteoporosis.org International Osteoporosis Foundation: https://www.osteoporosis.foundation http://ods.od.nih.gov/factsheets/vitamind.asp [facility]: 5-803-549-BONE The Calcium Information Childress: I recommend following a healthy lifestyle. You [...] track your nutrition and calcium intake on www.Universal Studios Japanometer.MalibuIQ This provides macro and micronutrient intake and [...] that features the Whole Plant Based diet, [place] over knives (see video online and visit website). Another movie that was recently released is: Eating You Alive (you can find it at [employer]) and The Game Changers movie Dr. Fauzia Ansari is a [facility] physician who has done research and published books, is an expert in Whole Plant based diet for prevention and reversal of heart disease. His website is [employer]. 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 Rock Velazco's Program for Reversing Diabetes, Your Body in Balance You can also watch YouTube channel : The Doc AND Parts Classifier Dr. Anthony Carlson has shown the benefit of a starch based whole food plant based diet to his Rheumatoid Arthritis patients, as well as patient with diabetes II, hypertension, obesity, multiple sclerosis, heart disease, acne, and other, his website: www.debra.MalibuIQ Dr. Yayo Allred is a renowned bioinformatics computer scientist, who has studied and researched the benefits of the Whole plant based diet. He has also researched the adverse effects of animal proteins on health. He presents many of his research findings in his book The [place] study. Dr. Gerber Becker has completed many research trials proving the reversal of diseases, such as heart disease and early prostate cancer, with healthy lifestyle and the Whole Plant based diet. Dr. Gerber Becker website is: www.carmenElectro-LuminX.MalibuIQ His new book: Undo It, has evidence based information and guide to following this healthy lifestyle. Dr. Cody Dillon has dedicated a website and additional time to reviewing all food related articles and research and presents them in his power point presentation and on his website at: nutritionfacts.org which is all free. Dr. Dillon has multiple free videos and YouTube, for example https://Akamedia.be/aSgNkhgVtks and [email or web address]://Akamedia.Likva/lXXXygDRyBU. He has written multiple books including: How Not To and How Not To Diet He is now working on his next book: How Not To Age Dr. Danitza Dash (from the [facility]), has articles on the following website: MemberTender.com For additional ideas on recipes, you could find additional information on practical to follow recipes by reading or watching online and YouTube such as: Parts Classifier AJ, Cooking With Plants, The Vegan Corner (recipes from an Congolese Parts Classifier), The Whole Foods Plant Based Cooking Show and visiting the provided websites for additional information on the whole plant based benefit and cooking recipes. You can also consider watching the vlogs of some of the plant based Athletes such as Fausto Ewing Derek on [employer]. You can find very good recipes for [...] Dr. Ignacio Degroot Lifestyle Medicine (is a Assayer Helper and Lifestyle Medicine Physician) -Sometimes it helps to start with a simple diet of potatoes, that Dr. Carlson calls AntoniettaIvanshayla Butler. You can learn more about that in his website: www.RealtyAPX This is the website for Yarelis Butler pdf : https://www.RealtyAPX/wp-content/uploads//Georgiana-Carrie_Website_P rint_Version-1.pdf You can also read more on Dr. Carlson's website - When you goal is to lose weight, it is important to listen to your hunger cues. Don't eat until you are stuffed. As soon as you feel you are no longer hungry, stop eating. There is a Somali saying that says Tammie Vega, meaning eat until you are 80% full. I say avoid eating past 80% of your stomach fullness. This originated from the city of [facility], which is one of the sites reported in the [employer] book, one of the highest cities in the world for having the most centenarians. Remember your stomach needs space and capacity for proper digestion of your food. Like a non food receiving clerk or a filler blender, they have a limit for proper function, and should not be filled to the top. You can read more about that from the [facility] article Don?t Eat Until You?re Full ? Instead, Mind Your Tammie [place] , at https://health.[facility].org/wxfm-qbt-digzb-pgpgu-nfsp-azplwhc-mind-y lso-neue-jmaqi-salvador-point/ Most plants contain proteins and all essential [...] also important to ensure they are 3rd constitution party tested to avoid contaminants. You can track your macros on a nutrition tracker such as cronometer or Inventarium.mobipal and others. Dr. Maryan Holguin (a psychiatrist [...] you will need to consult with a shearing shed hand to have further evaluation to exclude Celiac [...] - Gentle Yoga Anyone Can Do Anywhere www.InfoDif.MalibuIQ/yoga Also on youtube: yoga with Karlie For women, especially after menopause, strength training is important. You can read more on that from Clare Morley, PhD at her website https://www.rayAuthentium.MalibuIQ and YouTube videos. If you are a beginner, it is best to start with a physical therapist or interpersonal communications professor. There are also several [facility] that offer virtual personal training 3- Good Sleep (poor sleep impacts everything, recommended sleep is 7 to 8 hrs. a night). Certain people may need more sleep, depending on their age and other conditions. Meditation and relaxation techniques have shown to help with improving sleep. Try to be consistent with your sleep. You can find more at the [facility] Website on : https://my.[facility].org/departments/wellness/store/go-well#sleep-tab 4- Stress management, be happy, laugh [...] Timer Meditation Stress Free Now ([facility]). You can find more resources at the [facility] website at : https://my.[facility].org/departments/wellness/store/go-well#stress-fr ee-tab There are many free youtube videos on guided meditation as well For Breathing techniques: You can watch John Carlisle and learn the breathing technique and its benefits by watching the following YouTube: https://youBright.mdu.be/[email or web address]?[email or web address]. Learning about your awareness/spiritual being, is very [...] work with a psychotherapist or behavioral health classroom technology coach. When having a psychiatric condition, it [...] or a higher dose. Raw: Garlic, Cilantro, [place] nuts, Pumpkin seeds, [place] seeds and Flax seed powder have been reported to help with certain metal detoxification such as mercury. Victoria-3 plant based rich foods are good anti-inflammatory [...] the Whole Plant Based Diet, by watching [place] over Yovigo movie and then review website. There are many other resources and educational information on the Whole plant based diet on the Internet and documentaries. There are other resources for wellness that you can also benefit from, such as the [facility] Wellness website, [facility] and includes Plant based and Mediterranean diet, yoga and meditation. Please avoid all dairy products. You could use non-dairy milk such as Flax milk, Cashew milk, Seaman milk, Rice milk, Oat milk or Hemp [...] below, just add the ingredients to your filler blender and blend: - Probably the healthiest smoothie is one that contains mostly green leafy vegetables (especially containing kale), some berries, flax seed and water. This might not stock turner to be sweet. You can add one or two pitted dates or a frozen banana for natural sweetness. Examples of healthy green smoothies, pack your filler blender (at least half way to 3/4) with a mix of green leafy veggies, then top your filler blender with fruits (such as banana or [...] risk for kidney stones. The same with lebanese chards and beet leaves. If you don't [...] health and wellbeing. At the [facility], we work as a team for your care, along with Nurse Practitioners, Physician Assistants, Nurses and Medical Assistants. It is a privilege and honor to serve you. Thank you for choosing [facility] for your healthcare. Sincerely, Darrian Dubon MD BONE MINERAL DENSITY PATIENT INSTRUCTIONS Bone mineral density testing measures the amount [...] you can resume your usual activities immediately. Level of Service: OFFICE/OUTPATIENT ESTABLISHED MOD MDM 30 MIN [80580] Additional E/M codes: VISIT CPLX INHERENT EANDM ASSOC WITH MED * Disposition: Return for May 2025 for RA and OP and review of DXA. Follow-up and Disposition History for Encounter Date Provider Department Center 10/05/2024 [id number] DUBON [facility] Maria De Jesus Encounter Status:Closed by DARRIAN DUBON on 10/16/24 PHYSICIAN ORDER Observed: 05/05/2024 8:56 AM Status: F Source: [facility] [id number]#1.00TIFF PRE-CERTIFICATION FORM Observed: 2:07 PM Status: F Source: [facility] [id number]#1.00TIFF CONSENT FOR PROCEDURE/SURGERY Observed: 03/04/2024 8:56 AM Status: F Source: [facility] [id number]#1.00TIFF CONSENT FOR PROCEDURE/SURGERY Observed: 12/11/2023 8:56 AM Status: F Source: [facility] [id number]#1.00TIFF ALLERGIES DATE TYPE / CODE NAME / CODE REACTION SEVERITY SOURCE [id number](SN ED CT) No Known Allergies [facility] [id number](SN ED CT) No Known Medication Allergies [facility] Drug Class/[id number](S NOMED CT) NO KNOWN ALLERGIES [facility] /[id number](SNOM ED CT) Unknown [facility] ENCOUNTERS ADMIT/DISCHARGE ACCOUNT NUMBER ADMITTING ENCOUNTER CLASS LOCATION SOURCE 06/21/2025/06/21/20 [id number] Ambulatory [facility] DHBuilding[facility] CD:[id number] 1 [facility] 06/07/2025/06/07/20 25 [id number] Ambulatory [facility] DHBuilding:[place] [facility] 06/07/2025/06/07/20 25 [id number] Ambulatory [facility] DHBuilding:F [facility] 06/06/2025/06/06/20 25 [id number] Ambulatory [facility] HospitalBuil ding:LNRH [facility] 06/06/2025 [id number] Ambulatory [facility] HospitalBuil ding:LNBD [facility] 05/31/2025/05/31/20 25 [id number] Ambulatory [facility] DH[facility]/2025/05/23/20 [id number] [facility] 05/22/2025/05/22/20 [id number] [facility] guzmanSebas DHRoom: CD:[id number] [facility] 05/11/2025/05/11/20 25 [id number] Sarmini, Salmon Talal Ambulatory FTBuilding : END [facility] 05/11/2025/05/11/20 [id number] Sarmini, Salmon Talal Ambulatory FTBuilding :[facility] 05/03/2025/05/03/20 25 [id number] Ambulatory Building:[facility] 05/03/2025/05/03/20 25 [id number] Ambulatory Building:[facility] 05/03/2025/05/03/20 25 [id number] Ambulatory Building:[facility] 03/29/2025/03/29/20 25 [id number] Ambulatory Building:[facility] 03/29/2025/03/29/20 25 [id number] Ambulatory Building:[facility] 02/14/2025/02/15/20 25 [id number] [facility]24 [id number] Sarmini, Salmon Talal Ambulatory FTBuilding :FT LAB [facility] 12/14/2024/12/14/19 25 [id number] Sarmini, Salmon Talal Ambulatory FTBuilding :FT LAB [facility] 12/14/2024/12/14/19 25 [id number] Sarmini, Salmon Talal Ambulatory FTBuilding :FT LAB [facility] 12/14/2024/12/14/19 25 [id number] [facility] wetzelSebas DHRoom: CD:[id number] 3 [facility] 11/21/2024 [id number] Marcin RAMÍREZ Ambulatory FTMCBuilding :FT LAB [facility] 11/21/2024/11/21/19 [id number] Marcin RAMÍREZ Ambulatory FTBuilding :FT LAB [facility] 11/21/2024/11/21/19 [id number] [facility] Exam 2 [facility] 10/05/2024/10/05/20 24 [id number] Ambulatory [facility] HospitalBuil ding:LNRH [facility] 05/02/2019 [id number] Ambulatory CD:[id number]:CD :[id number] [facility] PAYERS ENCOUNTER GUARANTOR PAYER SUBSCRIBER SOURCE 06/21/2025 JAM VILLALTA: SHELLY SALTER HTel: ~~(4 1 (HP) Primary Insurance:MEDICARE DEVOTED HEALTHPolicy Number: [id number] Date:5639-89-00YV [address]KGTUMMARYLOU FORTE [address]HZ: 651 JAM YE [facility] 06/07/2025 JAM VILLALTA: SHELLY SALTER HTel: ~~(4 1 (HP) Primary Insurance:MEDICARE DEVOTED HEALTHPolicy Number: [id number] Date:0455-75-22TX [address]W, [place] [address]LA: 651 JAM YE [facility] 06/07/2025 JAM VILLALTA: SHELLY SALTER HTel: ~~(4 1 (HP) Primary Insurance:MEDICARE DEVOTED HEALTHPolicy Number: [id number] Date:8549-83-93TL [address]FDIHZ, [place] [address]IJ: 651 JAM YE [facility] 06/06/2025 Primary Insurance:DEVOTED HEALTH [place] HMOPolicy Number: [id number] Date:2130-56-21Hyns Name:Nickie VILLALTA: [id number] SHELLY [address] [place] [address] [facility] 06/06/2025 Primary Insurance:[facility] Number: [id number] Date:4883-10-81Qbvt Name:Nickie JAM LEEB: [id number] SHELLY [place] [facility] [place] [address] [facility] 05/31/2025 JAM LEEB: SHELLY [address] HTel: ~~(4 1 (HP) Primary Insurance:MEDICARE DEVOTED HEALTHPolicy Number: [id number] Date:0539-43-66SP [address]VFXIUMARYLOU FORTE [address]VG: 651 JAM YE [facility] 05/23/2025 Primary Insurance:[facility]ALTH[facility] Number: [id number] Date:2357-47-60Kjod Name:Nickie JAM LEEB: [id number] SHELLY [place] [address] [facility] 05/22/2025 JAM LEEB: SHELLY SALTER HTel: ~~(4 1 (HP) Primary Insurance:MEDICARE olicy Number: [id number] Date:3812-01-92GP [address]TWLABMARYLOU FORTE [address]TJ: 651 JAM YE [facility] 05/11/2025 JAM VILLALTA: SHELLY [address] HTel: ~~(4 1 (HP) Primary Insurance:MEDICAREP olicy Number: [id number] Date:2024-12-14 JAM YE [facility] 05/11/2025 JAM LEEB: SHELLY Y[address] HTel: ~~(4 1 (HP) Primary Insurance:MEDICAREP olicy Number: [id number] Date:2024-12-14 JAM [facility] 05/03/2025 JAM Barcenas TRENDJAREDICZDOB: [place] [address]Cbi: (HP) Primary Insurance:DEVOTED HEALTHPolicy Number: [id number] Date:2021-10-16 JAM TOSCANODOB: [id number] SHELLY [place], [facility] [facility] 05/03/2025 JAM Barcenas TRENDJAREDICZDOB: [place]LLY [place], [facility]Owk: (HP) Primary Insurance:DEVOTED HEALTHPolicy Number: [id number] Date:2021-10-16 JAM TOSCANODOB: [id number] [place], [place] [id number] [facility] 05/03/2025 JAM Barcenas TRENDLANDENDOB: SHELLY [place], [facility]Sup: (HP) Primary Insurance:DEVOTED HEALTHPolicy Number: [id number] Date:2021-10-16 JAM TOSCANODOB: [id number] SHELLY [place], [facility] [facility] EPIC 03/29/2025 JAM TOSCANODOB: SHELLY [place], [facility]Lts: (HP) Primary Insurance:DEVOTED HEALTHPolicy Number: [id number] Date:2021-10-16 JAM TOSCANODOB: [id number] SHELLY [place], [facility] [facility] EPIC 03/29/2025 JAM Barcenas TRENDJAREDICZDOB: [place] [address]Vma: (HP) Primary Insurance:DEVOTED HEALTHPolicy Number: [id number] Date:2021-10-16 JAM LEEB: [id number] [place] [address] [facility] 02/14/2025 Primary Insurance:[facility] [place] HMOPolicy Number: [id number] Date:1521-78-74Vxzh Name:Nickie JAM VILLALTA: [id number] [place] [address] [facility] 12/14/2024 JAM LEEB: SHELLY SALTER HTel: ~~(4 1 (HP) Primary Insurance:MEDICAREP olicy Number: [id number] Date:5932-65-22AC [address]PQCPMMARYLOU FORTE [address]YL: 651 JAM YE [facility] 12/14/2024 JAM LEEB: SHELLY SALTER HTel: ~~(4 1 (HP) Primary Insurance:MEDICAREP olicy Number: [id number] Date:6889-15-23SZ [address]SQNOGMARYLOU FORTE [address]GP: 651 JAM YE [facility] 12/14/2024 Secondary Insurance:MEDICARE DEVOTED HEALTHPolicy Number: Effective Date:2025-06-14 JAM YE [facility] 12/14/2024 JAM LEEB: SHELLY SALTER HTel: ~~(4 1 (HP) Primary Insurance:MEDICAREP olicy Number: [id number] Date:2619-88-69JO [address]XIXNXMARYLOU FORTE [address]IW: 650 AJM YE [facility] 12/14/2024 JAM LEEB: [id number] SHELLY SALTER HTel: ~~(4 1 (HP) Primary Insurance:MEDICARE olicy Number: [id number] Date:4327-69-37HA [address]FZQSD, [place] [address]PT: 651 JAM YE [facility] 11/21/2024 JAM LEEB: SHELLY SALTER HTel: ~(41 9 (HP) Primary Insurance:MEDICAREP olicy Number: [id number] Date:7838-98-39KZ [address]FLMYZ, [place] [address]SL: 651 JAM YE [facility] 11/21/2024 JAM LEEB: SHELLY SALTER HTel: ~~(4 1 (HP) Primary Insurance:MEDICAREP olicy Number: [id number] Date:8712-19-82RK [address]RWFIRMARYLOU FORTE [address]SI: 651 JAM YE [facility] 11/21/2024 Secondary Insurance:MEDICARE DEVOTED HEALTHPolicy Number: Effective Date:2025-06-09 JAM YE [facility] 11/21/2024 JAM LEEB: SHELLY SALTER HTel: ~~(4 1 (HP) Primary Insurance:MEDICAREP olicy Number: [id number] Date:3615-50-52HX [address]BGHJL, [place] [address]AQ: 651 JAM YE [facility] 11/21/2024 Secondary Insurance:MEDICARE DEVOTED HEALTHPolicy Number: Effective Date:2025-06-12 JAM MURGUIAREGINALD [facility] 10/05/2024 Primary Insurance:[employer]OTED [employer]ALTH [place] HMOPolicy Number: [id number] Date:9638-80-42Duyx Name:Nickie VILLALTA: [id number] [place] [address] [facility] 05/02/2019 JAM LEEB: STERLING CASPERTel: (HP) Primary Insurance:MEDICAREP olicy Number: [id number] Date:1790-91-37QG [address]grogkP[place] [address]CG: JAM YE [facility]
[2025-08-16 09:25] LABS: Hematocrit 39.1 % (42.0-54.0); Hemoglobin 13.0 g/dL (14.0-18.0); Immature Granulocytes Abs Auto 0.02 10^3/uL (0.00-0.03); Immature Granulocytes Pct Auto 0.2 % (0.0-0.5); Lymphocytes Absolute Auto 2.9 10^3/uL (1.2-3.8); Mean Corpuscular HGB Conc 33.2 g/dL (29.9-35.2); Mean Corpuscular Hemoglobin 31.6 pg (25.9-34.0); Mean Corpuscular Volume 95.1 fL (80.0-94.0); Platelet Count 270 10^3/uL (150-450); Red Blood Count 4.11 10^6/uL (4.70-6.10); White Blood Count 8.8 10^3/uL (4.0-11.0)
[2025-08-16 10:04] LABS: Alanine Aminotransferase 48 U/L (16-63); Albumin Globulin Ratio 1.0; Albumin Level 3.5 g/dL (3.4-5.0); Alkaline Phosphatase 101 U/L (46-116); Anion Gap 11.2; Aspartate Amino Transferase 23 U/L (15-37); Blood Urea Nitrogen 12.0 mg/dL (7.0-18.0); Calcium 9.1 mg/dL (8.5-10.1); Carbon Dioxide 30.1 mmol/L (21.0-32.0); Chloride 106 mmol/L (98-107); Estimated GFR (African America >60 (>=60 mL/min/1.73m^2); Estimated GFR (Non-African Ame >60 (>=60 mL/min/1.73m^2); Globulin 3.6 g/dL; Glucose 72 mg/dL (74-106); Potassium 3.3 mmol/L (3.5-5.1); Sodium 144 mmol/L (136-145); Total Protein 7.1 g/dL (6.4-8.2)
[2025-08-16 10:13] LABS: Iron 107.0 ug/dL (65.0-175.0)
== END 2025-08-16 08:58 | disposition home or self-care (01) ==
LOC: LAB 09:02
PROVIDERS: PCP Family Medicine; Visit Provider Family Medicine
DX: Z79.899 Other long term (current) drug therapy (principal); D50.9 Iron deficiency anemia, unspecified
CPT/HCPCS: 36415; 80053; 83540; 85025

== ENCOUNTER 2025-09-18 08:34 | Outpatient (OUT) | payer OTHER, SELFPAY ==
--- OUTSIDE RECORDS SUMMARY | 2025-09-18 08:39 | XMS_ITS | Clinical Summary ---
Author Organization [facility] Address [address] [place] [address] Care Team Providers Care Value Analyst Name Role Phone Norm Wang MD Primary Care Provider [phone] Allergies Active AllergyReactionsCriticalityNoted MwfsJokrxsthGwexyfymabaSekvqjn40/04/2023 Medications MedicationSigDispense QuantityRefillsLast FilledStart DateEnd DateStatus Multiple Vitamins-Minerals (CENTRUM ADULTS PO) OrallyActive atorvastatin (Lipitor) 20 MG tablet Take 20 mg by mouth 1 (one) time each day at the same time.Active folic acid (Folvite) 1 MG tablet Take 1 mg by mouth 1 (one) time each day at the same time.Active ezetimibe (Zetia) 10 MG tablet Take 10 mg by mouth in the morning.Active dicyclomine (Bentyl) 10 MG capsule TAKE 1 CAPSULE BY MOUTH 4 TIMES A DAY12/17/2022ctive cholecalciferol (Vitamin D-3) 125 MCG (5000 UT) capsule Take 5,000 Units by mouth in the morning.Active sulfaSALAzine (Azulfidine) 500 MG EC tablet TAKE 2 TABLETS BY MOUTH 4 TIMES A DAY03/25/2023ctive omeprazole (PriLOSEC) [address] capsule Take 40 mg by mouth in the morning.Active mesalamine (Rowasa) 4 g enema as directed RectalActive lisinopril 20 MG tablet 1 (one) time each day at the same time.Active Entyvio 300 MG injection 05/27/2023ctive ferrous sulfate 325 (65 Fe) MG EC tablet Take 325 mg by mouth in the morning and 325 mg at noon and 325 mg in the evening. Take with meals. Do not crush, chew, or split.Active Turmeric 400 MG capsule Take by mouthActive methotrexate 2.5 MG tablet Take by mouth. Follow directions carefully, and ask to explain any part you do not understand. Takeexactly as directed.Active Active Problems ProblemNoted DateDiagnosed DateArthritis of knee, left03/19/2023rthritis of right hip03/19/2023hronic eczematous otitis externa of right ear03/19/2023 History of total knee ojwnrheivit60/04/2023History of total right hip hqcapenymkpp18/04/2023rimary osteoarthritis of right knee03/19/2023 Sensorineural hearing loss, ygwpgsemo37/04/3197Ngwnuekbscet40/04/2018Ulcerative tvaqtbefod27/23/2017Encounter for monitoring of etanercept izjzlho5002/07/2016 Vitamin D rjegjzxrru21/20/2015Rheumatoid arthritis with positive rheumatoid binvmj2109/12/2015 Immunizations ImmunizationAdministration DatesNext DueInfluenza, injectable, quadrivalent, preservative free08/29/2019Pneumococcal Conjugate PCV 13101/02/2015 Family History Medical HistoryRelationNameCommentsCOPDFatherStrokeFatherCOPDMotherHeart disease MotherRelationNameStatusCommentsFatherDeceasedMotherDeceasedOtherFamily history of hyperlipidemia, hypertension Social History Tobacco UseTypesPacks/DayYears UsedDateSmoking Tobacco: FormerCigarettesQuit: 2011Smokeless Tobacco: Former Tobacco Cessation:Counseling Given: Not Answered Alcohol UseStandard Drinks/WeekCommentsNot Currently0 (1 standard drink = 0.6 oz pure alcohol)Caffeine: more than 4 cups per daySex and Gender InformationValue Date RecordedSex Assigned at BirthNot on fileLegal OqeHhyo6401/28/2023 7:07 PM EDT Gender IdentityNot on fileSexual OrientationNot on file Last Filed Vital Signs Vital SignReadingTime TakenCommentsBlood Pressure--Pulse--Temperature-- Respiratory Rate--Oxygen Saturation--Inhaled Oxygen Concentration--Fyepru25.6 kg (180 lb)03/31/2023 12:00 PM XLBKpnbai206.6 cm (5' 6 )03/31/2023 12:00 PM EDTBody Mass Index29.05003/31/2023 12:00 PM EDT Plan of Treatment DateTypeDepartmentCare Team (Latest Contact Info)Ilvrgobftoy50/13/2026 10:00 AM EDTOffice Visit [facility] [address] [place] [phone] Jr. Elias Veliz, DO [address] [place] [address] 05/02/2026 10:00 AM EDTOffice Visit [facility] [address] [place] [id number] Jr. Elias Veliz, DO [address] [place] [address] Insurance Care Teams Team MemberRelationshipSpecialtyStart DateEnd Norm Wang MD [facility] - [facility]/21/23
--- OUTSIDE RECORDS SUMMARY | 2025-09-18 08:39 | XMS_ITS | Patient Health Record ---
Author Organization [facility] [place] Address [address] [place] [address] Care Team Providers Care Adjunct Teacher Name Role Phone Toi Lackey Primary Care Provider [phone] Allergies No Known Allergies Results Component Value Reference Range Notes CBC AUTO DIFF Reviewed date:03/01/2025 08:13:49 PM Interpretation: Performing Lab: Notes/Report: [facility] , White Blood Count 8.0 4.0-11.0 10 3/uL Red Blood Count3.654.70-6.10 10 6/lOWbhdbbhupr01.214.0-18.0 g/zOJampnrqgmq90.6 42.0-54.0 %Mean Corpuscular Airmhc11.180.0-94.0 fLMean Corpuscular Hemoglobin 30.725.9-34.0 pgMean Corpuscular HGB Conc33.329.9-35.2 g/dLRed Cell Distribution Width13.511.0-15.0 %Platelet Wbzwp570343-371 10 3/uLMean Platelet Volume8.79.5- 13.5 fLNeutrophils Percent Auto77.543.0-75.0 %Lymphocytes Percent Auto14.820.5- 60.0 %Monocytes Percent Auto7.11.7-12.0 %Eosinophils Percent Auto0.00.9-7.0 % Basophils Percent Auto0.50.2-2.0 %Immature Granulocytes Pct Auto0.10.0-0.5 % Neutrophils Absolute Auto6.21.4-6.5 10 3/uLLymphocytes Absolute Auto1.21.2-3.8 10 3/uLMonocytes Absolute Auto0.60.3-0.8 10 3/uLEosinophils Absolute Auto0.00.0- 0.7 10 3/uLBasophils Absolute Auto0.00.0-0.1 10 3/uLImmature Granulocytes Abs Auto0.010.00-0.03 10 3/uLPerforming Lab:see noteML - [facility] LB IRON Reviewed date:03/01/2025 08:13:49 PM Interpretation: Performing Lab: Notes/Report: [facility] ,Iron20.065.0-175.0 ug/dLPerforming Lab:see noteML - [facility] LBCBC AUTO DIFF Reviewed date:12/21/2024 12:30:36 PM Interpretation: Performing Lab: Notes/Report: [facility] ,White Blood Count5.94.0-11.0 10 3/uLRed Blood Count4.074.70-6.10 10 6/uL Twrmcqzlro55.514.0-18.0 g/bKImpqtgnfly30.742.0-54.0 %Mean Corpuscular Cigxfm68.1 80.0-94.0 fLMean Corpuscular Moowxrupes55.725.9-34.0 pgMean Corpuscular HGB Conc 32.329.9-35.2 g/dLRed Cell Distribution Width14.911.0-15.0 %Platelet Ggdly647 150-450 10 3/uLMean Platelet Volume9.09.5-13.5 fLNeutrophils Percent Auto65.0 43.0-75.0 %Lymphocytes Percent Auto26.520.5-60.0 %Monocytes Percent Auto8.01.7- 12.0 %Eosinophils Percent Auto0.00.9-7.0 %Basophils Percent Auto0.30.2-2.0 % Immature Granulocytes Pct Auto0.20.0-0.5 %Neutrophils Absolute Auto3.81.4-6.5 10 3/uLLymphocytes Absolute Auto1.61.2-3.8 10 3/uLMonocytes Absolute Auto0.50.3-0.8 10 3/uLEosinophils Absolute Auto0.00.0-0.7 10 3/uLBasophils Absolute Auto0.00.0- 0.1 10 3/uLImmature Granulocytes Abs Auto0.010.00-0.03 10 3/uLPerforming Lab:see note - [facility] LBGLYCOHEMOGLOBIN A1C Reviewed date:12/21/2024 12:30:36 PM Interpretation: Performing Lab: Notes/Report: [facility] ,Glycohemoglobin A1C5.14.5-6.2 % ACTION SUGGESTED ADA RECOMMENDED LIMIT 4.0 - 6.0 > 7.0 ADA THERAPEUTIC TARGET < 7.0 Estimated Average Vhahxoe895Iuykaikvyb Lab:see noteML - [facility] LB LIPID PROFILE Reviewed date:12/21/2024 12:30:36 PM Interpretation: Performing Lab: Notes/Report: [facility] ,Cumbljqoxkoui66<=150 mg/fRJkgzkmtorng642<=200 mg/dLHDL Uxboxvkunky5139-88 mg/dL <40 mg/dl - HIGH CARDIOVASCULAR RISK > or =60 mg/dl - LOW CARDIOVASCULAR RISK LDL Cholesterol Zuepepevmd02.0 >190 mg/dl VERY HIGH <100 mg/dl OPTIMAL 160-189 mg/dl HIGH 100-129 mg/dl NEAR OR ABOVE OPTIMAL 130-159 mg/dl BORDERLINE HIGH VLDL CHOLESTEROL6.2Chol HDL Ratio1.8 7.1 - 11.0 MODERATE RISK >11.0 HIGH RISK 3.3 - 4.4 LOW RISK 4.4 - 7.1 AVERAGE RISK Performing Lab:see note - [facility] LBCT abdomen pelvis wo con Reviewed date:11/27/2024 10:43:04 AM Interpretation: Performing Lab: Notes/Report: Source Facility: [place] [address] [place] [address] CT Scan Report Signed Patient: JAMES SHANKS MR#: [id number] : 1965 Acct:[id number] Age/Sex: 59 / M ADM Date: 11/25/24 Loc: CT Attending Dr: Marcin Ramírez M.D. Ordering Physician: Marcin Ramírez M.D. Date of Service: 11/25/24 Procedure(s): CT abdomen pelvis wo con Accession Number(s): [id number] cc: Jose L Lackey M.D. [place] [address] Patient Name: JAMES SHANKS MRN: [id number] date: 1965 Sex: M Assigned Patient Location: CT Current Patient Location: CT Accession/Order Number: [id number] Exam Date: 11/25/2024 13:15 Report Date: 11/25/2024 [...] By: Damion Casanova M.D. Signed By: 11/25/24 1343 DD/ 134 TD/TT: Mandrel Puller:CBC AUTO DIFF Reviewed date:01/16/2025 09:43:15 PM Interpretation: Performing Lab: Notes/Report: [facility] ,White Blood Count8.54.0-11.0 10 3/uLRed Blood Count4.294.70-6.10 10 6/uL Uulhwrbunn28.214.0-18.0 g/pAEctwsnvsnq75.942.0-54.0 %Mean Corpuscular Pkqkji23.3 80.0-94.0 fLMean Corpuscular Mwzzfxrohe23.825.9-34.0 pgMean Corpuscular HGB Conc 32.329.9-35.2 g/dLRed Cell Distribution Width14.511.0-15.0 %Platelet Nvhff807 150-450 10 3/uLMean Platelet Volume8.79.5-13.5 fLNeutrophils Percent Auto60.3 43.0-75.0 %Lymphocytes Percent Auto28.420.5-60.0 %Monocytes Percent Auto10.71.7- 12.0 %Eosinophils Percent Auto0.00.9-7.0 %Basophils Percent Auto0.40.2-2.0 % Immature Granulocytes Pct Auto0.20.0-0.5 %Neutrophils Absolute Auto5.11.4-6.5 10 3/uLLymphocytes Absolute Auto2.41.2-3.8 10 3/uLMonocytes Absolute Auto0.90.3-0.8 10 3/uLEosinophils Absolute Auto0.00.0-0.7 10 3/uLBasophils Absolute Auto0.00.0- 0.1 10 3/uLImmature Granulocytes Abs Auto0.020.00-0.03 10 3/uLPerforming Lab:see noteML - [facility] LBXR shoulder MELISSA min 2V Reviewed date:01/24/2025 04:03:52 PM Interpretation: Performing Lab: Notes/Report: Source Facility: [facility]-[address] [place] [address] [place] [address] XRay Report Signed Patient: JAMES SHANKS MR#: [id number] : 1965 Acct:[id number] Age/Sex: 59 / M ADM Date: 01/23/25 Loc: RAD Attending Dr: Joes L Lackey M.D. Ordering Physician: Jose L Lackey M.D. Date of Service: 01/23/25 Procedure(s): XR shoulder MELISSA min 2V Accession Number(s): [id number] cc: Jose L Lackey M.D. [facility] [place] [id number] Patient Name: JAMES SHANKS MRN: [id number] date: 1965 Sex: M Assigned Patient Location: [facility] Current Patient Location: Accession/Order Number: [id number] Exam Date: 01/23/2025 21:02 Report Date: 01/24/2025 [...] Ta Finn M.D.01/24/2025 3:15 PM Dictation Location: [place] [address] Electronically authenticated by: [id number] Y Date: 01/24/2025 15:15 Dictated By: Ta Finn D.O. Signed By: 01/24/25 1518 DD/ 14 TD/TT: Mandrel Puller:FERRITIN Reviewed date:01/26/2025 07:47:19 PM Interpretation: Performing Lab: Notes/Report: [facility] ,Brcddkpn867.026.0-388.0 ng/mLPerforming Lab:see noteML - [facility] LBIRON Reviewed date:04/13/2025 06:19:22 PM Interpretation: Performing Lab: Notes/Report: [facility] ,Iron30.065.0-175.0 ug/dLPerforming Lab:see noteML - [facility] QuantiFERON-TB Gold Plus Reviewed date:04/18/2025 04:37:26 PM Interpretation: Performing Lab: Notes/Report: [facility] ,QuantiFERON Incubation. Reference Range: . Incubation performed. QuantiFERON-TB Gold PlusNegativeNegative [address] [place], [place] [id number] IU/mL. Chemiluminescence immunoassay methodology Infection with M tuberculosis is unlikely, but high risk No response to M tuberculosis antigens detected. reference range is an Antigen minus Nil result of <0.35 Lap Winder: Brendon Mcneil PhD, Phone: [phone] (ATS/IDSA/CDC Clinical Practice Guidelines, 2017). The individuals should be considered for additional testing Performed at: [facility] QuantiFERON CriteriaComment. subtracting the Nil value from either TB antigen (Ag) value. The Mitogen tube serves as a control for the test. QuantiFERON-TB Gold Plus is a qualitative indirect test for radiography, and other medical and diagnostic evaluations. The QuantiFERON-TB Gold Plus result is determined by M tuberculosis infection (including disease) and is intended for use in conjunction with risk assessment, QuantiFERON TB1 Ag Value0.02. IU/mLQuantiFERON TB2 Ag Value0.05. IU/mL QuantiFERON Nil Value0.05. IU/mLQuantiFERON Mitogen Value>10.00. IU/mLPerforming Lab:see noteLC - [facility] LBCBC AUTO DIFF Reviewed date:08/16/2025 06:19:04 PM Interpretation: Performing Lab: Notes/Report: [facility] ,White Blood Count8.84.0-11.0 10 3/uLRed Blood Count4.114.70-6.10 10 6/uL Yygnqrypdk25.014.0-18.0 g/kKTuuljsslxf78.142.0-54.0 %Mean Corpuscular Klwlbi97.1 80.0-94.0 fLMean Corpuscular Vxlshddqvh80.625.9-34.0 pgMean Corpuscular HGB Conc 33.229.9-35.2 g/dLRed Cell Distribution Width14.911.0-15.0 %Platelet Oktni613 150-450 10 3/uLMean Platelet Volume8.59.5-13.5 fLNeutrophils Percent Auto57.2 43.0-75.0 %Lymphocytes Percent Auto32.520.5-60.0 %Monocytes Percent Auto9.61.7- 12.0 %Eosinophils Percent Auto0.00.9-7.0 %Basophils Percent Auto0.50.2-2.0 % Immature Granulocytes Pct Auto0.20.0-0.5 %Neutrophils Absolute Auto5.01.4-6.5 10 3/uLLymphocytes Absolute Auto2.91.2-3.8 10 3/uLMonocytes Absolute Auto0.80.3-0.8 10 3/uLEosinophils Absolute Auto0.00.0-0.7 10 3/uLBasophils Absolute Auto0.00.0- 0.1 10 3/uLImmature Granulocytes Abs Auto0.020.00-0.03 10 3/uLPerforming Lab:see noteML - [facility] LBIRON Reviewed date:08/16/2025 06:19:04 PM Interpretation: Performing Lab: Notes/Report: [facility] ,Ylbv428.065.0-175.0 ug/dLPerforming Lab:see noteML - [facility] LB PROF CHEM 8 (BAS METB) Reviewed date:07/27/2025 07:52:05 PM Interpretation: Performing Lab: Notes/Report: [facility] ,Qjtpsf446074-557 mmol/LPotassium3.73.5-5.1 mmol/KUcnzvala07251-353 mmol/LCarbon Nrzohrc68.221.0-32.0 mmol/LAnion Gap11.9Pgkaoal05528-886 mg/dLBlood Urea Qgtxiwkr52.07.0-18.0 mg/dLCreatinine0.940.70-1.30 mg/dLEstimated GFR ( Emilie>60>=60 mL/min/1.73m 2Estimated GFR (Non- Lisa>60>=60 mL/min/1.73m 2BUN Creatinine Ratio10.1Bbevwsm2.78.5-10.1 mg/dLPerforming Lab:see noteML - [facility] LBPROF 14(COMP METB) Reviewed date:07/19/2025 12:56:39 PM Interpretation: Performing Lab: Notes/Report: [facility] ,Deuuiz968158-729 mmol/LPotassium4.13.5-5.1 mmol/EPlpfgurj01405-386 mmol/LCarbon Mawqusx43.721.0-32.0 mmol/LAnion Gap10.8Qycwfod03862-771 mg/dLBlood Urea Oysweuxx79.07.0-18.0 mg/dLCreatinine0.840.70-1.30 mg/dLEstimated GFR ( Emilie>60>=60 mL/min/1.73m 2Estimated GFR (Non- Lisa>60>=60 mL/min/1.73m 2BUN Creatinine Ratio16.8Gvlhemd4.18.5-10.1 mg/dLBilirubin Total0.30.2-1.0 mg/dL Aspartate Amino Uzhjawhmbdj0674-25 U/LAlanine Draoehutvxchjjck0229-10 U/L Alkaline Gjeipyktqhw84604-940 U/LTotal Protein7.56.4-8.2 g/dLAlbumin Level3.6 3.4-5.0 g/dLGlobulin3.9Albumin Globulin Ratio0.9Performing Lab:see noteML - [facility] LBIRON Reviewed date:07/19/2025 12:56:39 PM Interpretation: Performing Lab: Notes/Report: [facility] ,Iron72.065.0-175.0 ug/dLPerforming Lab:see noteML - [facility] LBCBC AUTO DIFF Reviewed date:07/19/2025 12:56:39 PM Interpretation: Performing Lab: Notes/Report: [facility] ,White Blood Count8.14.0-11.0 10 3/uLRed Blood Count4.234.70-6.10 10 6/uL Alwowvodbj14.314.0-18.0 g/rVLowdhgiigq10.342.0-54.0 %Mean Corpuscular Owmimw78.3 80.0-94.0 fLMean Corpuscular Niqnlwqzqf07.425.9-34.0 pgMean Corpuscular HGB Conc 33.029.9-35.2 g/dLRed Cell Distribution Width15.911.0-15.0 %Platelet Vnsvi993 150-450 10 3/uLMean Platelet Volume8.69.5-13.5 fLNeutrophils Percent Auto67.5 43.0-75.0 %Lymphocytes Percent Auto23.020.5-60.0 %Monocytes Percent Auto8.81.7- 12.0 %Eosinophils Percent Auto0.00.9-7.0 %Basophils Percent Auto0.50.2-2.0 % Immature Granulocytes Pct Auto0.20.0-0.5 %Neutrophils Absolute Auto5.41.4-6.5 10 3/uLLymphocytes Absolute Auto1.91.2-3.8 10 3/uLMonocytes Absolute Auto0.70.3-0.8 10 3/uLEosinophils Absolute Auto0.00.0-0.7 10 3/uLBasophils Absolute Auto0.00.0- 0.1 10 3/uLImmature Granulocytes Abs Auto0.020.00-0.03 10 3/uLPerforming Lab:see noteML - [facility] LBPROF 14(COMP METB) Reviewed date:06/18/2025 08:30:16 PM Interpretation: Performing Lab: Notes/Report: [facility] ,Jtahht405775-707 mmol/LPotassium4.03.5-5.1 mmol/QYfnvbmek00826-573 mmol/LCarbon Qhtqvol62.421.0-32.0 mmol/LAnion Gap14.5Swkowbm17341-519 mg/dLBlood Urea Gsqpxvrt66.07.0-18.0 mg/dLCreatinine0.710.70-1.30 mg/dLEstimated GFR ( Emilie>60>=60 mL/min/1.73m 2Estimated GFR (Non- Lisa>60>=60 mL/min/1.73m 2BUN Creatinine Ratio22.8Lctrofc0.38.5-10.1 mg/dLBilirubin Total0.20.2-1.0 mg/dL Aspartate Amino Pfubmartpsp8550-41 U/LAlanine Qkoqgghltrblcqyb8731-52 U/L Alkaline Eyxhixipcmo95253-379 U/LTotal Protein7.66.4-8.2 g/dLAlbumin Level3.3 3.4-5.0 g/dLGlobulin4.3Albumin Globulin Ratio0.8Performing Lab:see noteML - [facility] LBIRON Reviewed date:06/18/2025 08:30:16 PM Interpretation: Performing Lab: Notes/Report: [facility] ,Iron39.065.0-175.0 ug/dLPerforming Lab:see noteML - [facility] LBCBC AUTO DIFF Reviewed date:06/18/2025 08:30:16 PM Interpretation: Performing Lab: Notes/Report: [facility] ,White Blood Count7.14.0-11.0 10 3/uLRed Blood Count3.714.70-6.10 10 6/uL Ptuokgbtpl30.514.0-18.0 g/oNYwdmohgjgi26.542.0-54.0 %Mean Corpuscular Ocpppv95.0 80.0-94.0 fLMean Corpuscular Cpblvjfxyv85.025.9-34.0 pgMean Corpuscular HGB Conc 33.329.9-35.2 g/dLRed Cell Distribution Width15.011.0-15.0 %Platelet Irodc146 150-450 10 3/uLMean Platelet Volume8.49.5-13.5 fLNeutrophils Percent Auto72.4 43.0-75.0 %Lymphocytes Percent Auto20.120.5-60.0 %Monocytes Percent Auto7.01.7- 12.0 %Eosinophils Percent Auto0.00.9-7.0 %Basophils Percent Auto0.40.2-2.0 % Immature Granulocytes Pct Auto0.10.0-0.5 %Neutrophils Absolute Auto5.11.4-6.5 10 3/uLLymphocytes Absolute Auto1.41.2-3.8 10 3/uLMonocytes Absolute Auto0.50.3- 0.8 10 3/uLEosinophils Absolute Auto0.00.0-0.7 10 3/uLBasophils Absolute Auto0.0 0.0-0.1 10 3/uLImmature Granulocytes Abs Auto0.010.00-0.03 10 3/uLPerforming Lab:see noteML - [facility] LBPROF 14(COMP METB) Reviewed date:05/16/2025 08:21:40 PM Interpretation: Performing Lab: Notes/Report: [facility] ,Zkuxzi131941-485 mmol/LPotassium3.13.5-5.1 mmol/CYiaiatra68680-444 mmol/LCarbon Bnnikln97.221.0-32.0 mmol/LAnion Gap13.8Zxtpbpk11349-506 mg/dLBlood Urea Wsggezlk15.07.0-18.0 mg/dLCreatinine0.770.70-1.30 mg/dLEstimated GFR ( Emilie>60>=60 mL/min/1.73m 2Estimated GFR (Non- Lisa>60>=60 mL/min/1.73m 2BUN Creatinine Ratio16.9Ywclgcg9.18.5-10.1 mg/dLBilirubin Total0.30.2-1.0 mg/dL Aspartate Amino Boxpnifljlz8138-64 U/LAlanine Mdxmhvacfyuhrxxl2974-79 U/L Alkaline Sqeumyhuhpo78413-451 U/LTotal Protein7.26.4-8.2 g/dLAlbumin Level3.0 3.4-5.0 g/dLGlobulin4.2Albumin Globulin Ratio0.7Performing Lab:see noteML - [facility] LBIRON Reviewed date:05/16/2025 08:21:40 PM Interpretation: Performing Lab: Notes/Report: [facility] ,Iron52.065.0-175.0 ug/dLPerforming Lab:see noteML - [facility] LBCBC AUTO DIFF Reviewed date:05/16/2025 08:21:40 PM Interpretation: Performing Lab: Notes/Report: [facility] ,White Blood Count6.34.0-11.0 10 3/uLRed Blood Count3.674.70-6.10 10 6/uL Mpkhowdvya12.914.0-18.0 g/rWRimkvemqdx16.542.0-54.0 %Mean Corpuscular Smgnbq04.3 80.0-94.0 fLMean Corpuscular Oycbebmkwv05.725.9-34.0 pgMean Corpuscular HGB Conc 32.529.9-35.2 g/dLRed Cell Distribution Width14.711.0-15.0 %Platelet Hdruz611 150-450 10 3/uLMean Platelet Volume8.39.5-13.5 fLNeutrophils Percent Auto67.3 43.0-75.0 %Lymphocytes Percent Auto22.920.5-60.0 %Monocytes Percent Auto9.01.7- 12.0 %Eosinophils Percent Auto0.00.9-7.0 %Basophils Percent Auto0.50.2-2.0 % Immature Granulocytes Pct Auto0.30.0-0.5 %Neutrophils Absolute Auto4.31.4-6.5 10 3/uLLymphocytes Absolute Auto1.51.2-3.8 10 3/uLMonocytes Absolute Auto0.60.3-0.8 10 3/uLEosinophils Absolute Auto0.00.0-0.7 10 3/uLBasophils Absolute Auto0.00.0- 0.1 10 3/uLImmature Granulocytes Abs Auto0.020.00-0.03 10 3/uLPerforming Lab:see noteML - [facility] LBAcute Hepatitis Reviewed date:04/16/2025 04:47:09 PM Interpretation: Performing Lab: Notes/Report: [facility] ,Hep A Ab, IgMNegativeNegative current HAV infection. A negative anti-HAV IgM result suggests no recent or HBsAg ScreenNegativeNegativeHep B Core Ab, IgMNegativeNegativeHCV AbNon Reactive Non ReactiveInterpretation:Comment. infection. individual), or other evidence exists to indicate HCV Lap Winder: Brendon Mcneil PhD, Phone: [phone] Performed at: [facility] suspected (which may be delayed in an immunocompromised Not infected with HCV unless early or acute infection is [address] [place] [phone] Performing Lab:see noteLC - [facility] LBCBC AUTO DIFF Reviewed date:04/13/2025 06:19:22 PM Interpretation: Performing Lab: Notes/Report: [facility] ,White Blood Count10.04.0-11.0 10 3/uLRed Blood Count4.124.70-6.10 10 6/uL Xmqqxfgfso00.614.0-18.0 g/aBMvwocsmzsu89.042.0-54.0 %Mean Corpuscular Pyqvso01.2 80.0-94.0 fLMean Corpuscular Kxjuoarkwa99.625.9-34.0 pgMean Corpuscular HGB Conc 33.229.9-35.2 g/dLRed Cell Distribution Width12.911.0-15.0 %Platelet Vkikt946 150-450 10 3/uLMean Platelet Volume8.39.5-13.5 fLNeutrophils Percent Auto74.9 43.0-75.0 %Lymphocytes Percent Auto15.620.5-60.0 %Monocytes Percent Auto9.01.7- 12.0 %Eosinophils Percent Auto0.00.9-7.0 %Basophils Percent Auto0.40.2-2.0 % Immature Granulocytes Pct Auto0.10.0-0.5 %Neutrophils Absolute Auto7.51.4-6.5 10 3/uLLymphocytes Absolute Auto1.61.2-3.8 10 3/uLMonocytes Absolute Auto0.90.3-0.8 10 3/uLEosinophils Absolute Auto0.00.0-0.7 10 3/uLBasophils Absolute Auto0.00.0- 0.1 10 3/uLImmature Granulocytes Abs Auto0.010.00-0.03 10 3/uLPerforming Lab:see noteML - [facility] Reviewed date:02/04/2025 12:01:00 PM Interpretation: Performing Lab: Notes/Report: Source Facility: [facility]-[address] [place] [address] [place] [address] Magnetic Resonance Report Signed Patient: JAMES SHANKS MR#: [id number] : 1965 Acct:[id number] Age/Sex: 59 / M ADM Date: 02/03/25 Loc: MRI Attending Dr: Jose L Lackey M.D. Ordering Physician: Jose L Lackey M.D. Date of Service: 02/03/25 Procedure(s): MR cervical spine wo con Accession Number(s): [id number] cc: Jose L Lackey M.D. [address] [address] Patient Name: JAMES SHANKS MRN: [id number] date: 1965 Sex: M Assigned Patient Location: MRI Current Patient Location: MRI Accession/Order Number: [id number] Exam Date: 02/03/2025 14:31 Report Date: 02/03/2025 [...] stenosis. Impression dictated by: Anil Tillman Jr., CherlyOBrittney02/03/2025 2:34 PM Dictation Location: [place] [address] Electronically authenticated by: [id number] Y Date: 02/03/2025 14:34 Dictated By: Anil Tillman M.D. Signed By: 02/03/25 1437 DD/ 1434 TD/TT: Mandrel Puller:IRON Reviewed date:01/26/2025 07:47:19 PM Interpretation: Performing Lab: Notes/Report: [facility] ,Iron37.065.0-175.0 ug/dLPerforming Lab:see noteML - [facility] LBCBC AUTO DIFF Reviewed date:01/26/2025 07:47:19 PM Interpretation: Performing Lab: Notes/Report: [facility] ,White Blood Count8.54.0-11.0 10 3/uLRed Blood Count3.764.70-6.10 10 6/uL Tlsceyyqbq63.714.0-18.0 g/hISnkvtyjksa75.442.0-54.0 %Mean Corpuscular Oypuvz92.1 80.0-94.0 fLMean Corpuscular Xeludwahwt79.125.9-34.0 pgMean Corpuscular HGB Conc 33.129.9-35.2 g/dLRed Cell Distribution Width14.511.0-15.0 %Platelet Znrco517 150-450 10 3/uLMean Platelet Volume8.69.5-13.5 fLNeutrophils Percent Auto72.6 43.0-75.0 %Lymphocytes Percent Auto18.920.5-60.0 %Monocytes Percent Auto8.11.7- 12.0 %Eosinophils Percent Auto0.00.9-7.0 %Basophils Percent Auto0.20.2-2.0 % Immature Granulocytes Pct Auto0.20.0-0.5 %Neutrophils Absolute Auto6.21.4-6.5 10 3/uLLymphocytes Absolute Auto1.61.2-3.8 10 3/uLMonocytes Absolute Auto0.70.3-0.8 10 3/uLEosinophils Absolute Auto0.00.0-0.7 10 3/uLBasophils Absolute Auto0.00.0- 0.1 10 3/uLImmature Granulocytes Abs Auto0.020.00-0.03 10 3/uLPerforming Lab:see noteML - [facility] LBTSH Reviewed date:12/21/2024 12:30:36 PM Interpretation: Performing Lab: Notes/Report: [facility] ,Thyroid Stimulating Hormone2.1300.358-3.740 uIU/mLPerforming Lab:see noteML - [facility] LBT4 Reviewed date:12/21/2024 12:30:36 PM Interpretation: Performing Lab: Notes/Report: [facility] ,T4 Thyroxine9.504.50-12.10 ug/dLPerforming Lab:see noteML - [facility] LBPSA SCREENING Reviewed date:12/21/2024 12:30:36 PM Interpretation: Performing Lab: Notes/Report: [facility] ,Prostate Specific Antigen Scrn2.84<=4.00 ng/mLPerforming Lab:see noteML - [facility] LBPROF 14(COMP METB) Reviewed date:12/21/2024 12:30:36 PM Interpretation: Performing Lab: Notes/Report: [facility] ,Eoalse879212-274 mmol/LPotassium4.63.5-5.1 mmol/OAvsjkpsw41685-407 mmol/LCarbon Ohtetmm04.421.0-32.0 mmol/LAnion Gap11.8Qfawrrp59110-424 mg/dLBlood Urea Msvlrfoc79.07.0-18.0 mg/dLCreatinine0.950.70-1.30 mg/dLEstimated GFR ( Emilie>60>=60 mL/min/1.73m 2Estimated GFR (Non- Lisa>60>=60 mL/min/1.73m 2BUN Creatinine Ratio14.1Spdxozp3.98.5-10.1 mg/dLBilirubin Total0.30.2-1.0 mg/dL Aspartate Amino Pfjoabrbzih5867-47 U/LAlanine Dlxapsvczvnfwvkx2998-82 U/L Alkaline Kuqsuhjmosw02859-315 U/LTotal Protein7.06.4-8.2 g/dLAlbumin Level3.5 3.4-5.0 g/dLGlobulin3.5Albumin Globulin Ratio1.0Performing Lab:see noteML - [facility] LBFREE T3 Reviewed date:12/21/2024 12:30:36 PM Interpretation: Performing Lab: Notes/Report: [facility] ,Free T32.322.18-3.98 pg/mLPerforming Lab:see noteML - [facility] LB XR abdomen 1V Reviewed date:11/16/2024 03:45:41 PM Interpretation: Performing Lab: Notes/Report: Source Facility: [facility]-[address] [place] [address] [place] [address] XRay Report Signed Patient: JAMES SHANKS MR#: [id number] : 1965 Acct:[id number] Age/Sex: 59 / M ADM Date: 11/14/24 Loc: RAD Attending Dr: Mariajose Brito NP Ordering Physician: Mariajose Brito NP Date of Service: 11/14/24 Procedure(s): XR abdomen 1V Accession Number(s): [id number] cc: Mariajose Brito NP; Jose L Lackey M.D. The [place] [address] Patient Name: JAMES SHANKS MRN: [id number] date: 1965 Sex: M Assigned Patient Location: [facility] Current Patient Location: Accession/Order Number: [id number] Exam Date: 11/14/2024 12:10 Report Date: 11/15/2024 [...] M.D. Signed By: 11/15/24714 DD/ 2 TD/TT: Mandrel Puller:XR cervical spine 2-3V Reviewed date:01/24/2025 09:27:09 AM Interpretation: Performing Lab: Notes/Report: Source Facility: [place] [address] XRay Report Signed Patient: JAMES SHANKS MR#: [id number] : 1965 Acct:[id number] Age/Sex: 59 / M ADM Date: 01/23/25 Loc: RAD Attending Dr: Jose L Lackey M.D. Ordering Physician: Jose L Lackey M.D. Date of Service: 01/23/25 Procedure(s): XR cervical spine 2-3V Accession Number(s): [id number] cc: Jose L Lackey M.D. [place] [address] Patient Name: JAMES SHANKS MRN: [id number] date: 1965 Sex: M Assigned Patient Location: [facility] Current Patient Location: [facility] Accession/Order Number: [id number] Exam Date: 01/23/2025 21:06 Report Date: 01/23/2025 [...] Ta Finn M.D.01/23/2025 9:09 PM Dictation Location: [place] [address] Electronically authenticated by: [id number] Y Date: 01/23/2025 21:09 Dictated By: Ta Finn D.O. Signed By: 01/23/252110 DD/ 08 TD/TT: Mandrel Puller:PROF Thompson(COMP METB) Reviewed date:10/11/2024 06:03:50 PM Interpretation: Performing Lab: Notes/Report: [facility] ,[id number] mmol/LPotassium4.33.5-5.1 mmol/XVkixxqyj73809-156 mmol/LCarbon Dyeycmk11.521.0-32.0 mmol/LAnion Gap13.0Cywtybj69340-763 mg/dLBlood Urea Uyxksurc28.07.0-18.0 mg/dLCreatinine1.010.70-1.30 mg/dLEstimated GFR ( Emilie>60>=60 mL/min/1.73m 2Estimated GFR (Non- Lisa>60>=60 mL/min/1.73m 2BUN Creatinine Ratio13.8Xkezmiy0.48.5-10.1 mg/dLBilirubin Total0.40.2-1.0 mg/dL Aspartate Amino Gjyntaabtcm5162-87 U/LAlanine Vwhrhifdehkfbqhd7135-00 U/L Alkaline Zdvdjziyqxa01640-838 U/LTotal Protein7.66.4-8.2 g/dLAlbumin Level3.5 3.4-5.0 g/dLGlobulin4.1Albumin Globulin Ratio0.9Performing Lab:see noteML - [facility] LBLIPID PROFILE Reviewed date:10/11/2024 06:03:50 PM Interpretation: Performing Lab: Notes/Report: [facility] ,Fvwtnerzcwaoi94<=150 mg/qRRuewwiymxqs741<=200 mg/dLHDL Blhdiwtfucl1636-45 mg/dL > or =60 mg/dl - LOW CARDIOVASCULAR RISK <40 mg/dl - HIGH CARDIOVASCULAR RISK LDL Cholesterol Caoofuwhcn37.6 100-129 mg/dl NEAR OR ABOVE OPTIMAL <100 mg/dl OPTIMAL 160-189 mg/dl HIGH >190 mg/dl VERY HIGH 130-159 mg/dl BORDERLINE HIGH VLDL CHOLESTEROL9.4Chol HDL Ratio2.4 3.3 - 4.4 LOW RISK 4.4 - 7.1 AVERAGE RISK >11.0 HIGH RISK 7.1 - 11.0 MODERATE RISK Performing Lab:see noteML - [facility] LBPROF 14(COMP METB) Reviewed date:08/16/2025 06:19:05 PM Interpretation: Performing Lab: Notes/Report: [facility] ,Otadja025555-280 mmol/LPotassium3.33.5-5.1 mmol/VLbzgwbpb47181-150 mmol/LCarbon Oqbpcta40.121.0-32.0 mmol/LAnion Gap11.0Kdgrwjj4584-146 mg/dLBlood Urea Nitrogen 12.07.0-18.0 mg/dLCreatinine0.720.70-1.30 mg/dLEstimated GFR ( Emilie>60 >=60 mL/min/1.73m 2Estimated GFR (Non- Lisa>60>=60 mL/min/1.73m 2BUN Creatinine Ratio16.8Zccywdq2.18.5-10.1 mg/dLBilirubin Total0.30.2-1.0 mg/dL Aspartate Amino Xurzwfymaut5087-17 U/LAlanine Oobzxvjkagaggujh1889-49 U/L Alkaline Hchysnuygzd98610-469 U/LTotal Protein7.16.4-8.2 g/dLAlbumin Level3.5 3.4-5.0 g/dLGlobulin3.6Albumin Globulin Ratio1.0Performing Lab:see noteML - [facility] LB Reason For Referral Diagnosis 1 Nephrolithiasis (N20 .0) Referral Organization [facility] Referring Provider First Name Toi Referring Provider Last Name Felipe Referring Provider Speciality [facility] Referred Provider Marcin Ramírez Referred Provider Specialty Urology Referral Priority Routine Medications Medication SIG (Take, Route, Frequency, Duration) Notes Start Date End Date Status Omeprazole 40 MG TAKE 1 CAPSULE BY MOUTH EVERY D AY; Duration: 30 ActivepredniSONE 10 MG1 tablet with food or milk Orally Once a day; Duration: 30 days5ActiveMulti Vitamin -1 tablet Orally Once a day; Duration: 30 day(s)3ActivesulfaSALAzine 500 MG2 tabs Orally 4x a dayActiveFerrous Sulfate 325 (65 Fe) MG1 tablet Orally once a day; Duration: 30 days12/21/2024 ActiveMeloxicam 15 MG1 tablet Orally twice daily; Duration: 30 days01/23/2025 ActiveFerrous Sulfate 325 (65 Fe) MG1 tablet Orally bid; Duration: 30 days 5ActivePotassium Chloride ER 10 MEQ1 tablet with food Orally Twice a day; Duration: 30 days5ActiveTurmeric 500 MG1 capsule Orally TIDActive tiZANidine HCl 4 MG1 tablet Orally qhs; Duration: 30 days5Active predniSONE 10 MG5 tabs per day for 3 days, 4 tabs per day for 3 ays, 3 tabs perday for 3 days, 2 tabs per day for 3days, 1 tab a day for 3 days, 1/2 tab a day for 4 days Orally Once a day; Duration: 19 days5ActiveLisinopril 20 MG1 tablet Orally Once a day; Duration: 30 daysActiveEzetimibe 10 MGTAKE 1 TABLET BY MOUTH EVERY DAY FOR 30 DAYS; Duration: 30ActiveFolic Acid 1 MGTAKE 1 TABLET BY MOUTH EVERY DAY; Duration: 30 daysActiveEntyvio Pen 108 MG/0.68ML inject Subcutaneous every 2 weeks5ActiveVitamin D3 125 MCG (5000 UT)1 capsule Orally Once a dayActiveAtorvastatin Calcium 20 MGTAKE 1 TABLET BY MOUTH EVERY DAY; Duration: 30ActiveMethotrexate Sodium 2.5 MGTAKE 4 TABLETS BY MOUTH WEEKLY; Duration: 28Active Immunizations Vaccine Route Administration Date Status Comme nts Flu, Flucelvax (26722) 6 mos and older, single-dose syringe (0870-4262) IM Intramuscular 10/11/2024 Administered Social History Tobacco Use: Social History Observation Description Date Details (start date - stop date) Former Smoker NA - 12/16/2011 Tobacco Use/Smoking Question Answer Notes Patient is a former smoker When did you stop smoking?12/16/2011How long has it been since you last smoked?> 10 yearsAlcohol Screen (Audit-C) Question Answer Notes Did you have a drink containing alcohol in the p ast year? No Uzfseo4AbltpnpoovdcsbZfkxkikhXTOIV-T (Standard) Question Answer Notes Did you have a drink containing alcohol in the p ast year? No Icbtay9ZiumlxzuvdgblfYokvmxzy Problems Problem Type SNOMED Code ICD Code Onset Dates Problem Status W/U Status Risk Notes Problem Benign neoplasm of colon (122986 04) Benign neoplasm of colon, 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confirmedProblemIron deficiency (39651389)Iron deficiency (E61.1)Active confirmedProblemUlcerative colitis (26023899)Ulcerative colitis, unspecified with unspecified complications (K51.919)ActiveconfirmedProblemCervical radiculopathy (95773199)Cervical radiculopathy (M54.12)ActiveconfirmedProblem Eczema (60266381)Eczema (L30.9)ActiveconfirmedProblemBenign essential hypertension (7924454)Benign essential hypertension (I10)ActiveconfirmedProblem Nephrolithiasis (46460655)Nephrolithiasis (N20.0)ActiveconfirmedProblemWell adult (640341122)Well adult (Z00.00)ActiveconfirmedProblemChronic pain (09874961)Chronic pain (G89.29)ActiveconfirmedProblemVitamin D deficiency (65609864)Vitamin D deficiency disease (E55.9)ActiveconfirmedProblemAdult idiopathic generalized osteoporosis (233721120)Adult idiopathic generalized osteoporosis (M81.8)ActiveconfirmedProblemIron deficiency anemia (25444749) Anemia, iron deficiency (D50.9)ActiveconfirmedProblemChronic ulcerative pancolitis (108164454)Chronic pancolonic ulcerative colitis (K51.00)Active confirmedProblemRheumatoid arthritis (62121934)Arthritis, rheumatoid (M06.9) ActiveconfirmedProblemPure hypercholesterolemia (970931089)Elevated cholesterol (E78.00)ActiveconfirmedProblemImpingement syndrome of shoulder region (354884231)Shoulder impingement (M25.819)Activeconfirmed Vital Signs Blood pressure diastolic 78 mm Hg 03/01/2025 Ntsoit04 in03/01/2025lood pressure tbpmranf179 mm Hg03/01/20255159Zxlyxf415.8 lbs 03/01/2025BMI28.05 kg/m203/01/2025 Encounters Encounter Location Date Provider Diagnosis [facility] [address] [place] [address] 07/19/2025 Toi Hoy Hypokalemia E87. 6 [facility] [address] [place] [address] 08/16/2025 Toi parmjit [facility] [place] [address] 04/13/2025Doug HoyArthritis, rheumatoid M06.9 ; Anemia, iron deficiency D50.9 and Medication management Z79.899[facility] [place] [address]/Doug [facility] [address] [place] [address]/11/2024Doug [facility] [place] [address]/06/2025Doug [facility] [place] [address] 06/18/2025Doug [facility] [place] [address]/05/2025Doug [facility] [place] [address]/09/2025Doug [facility] [place] [address]/Doug [facility] [place] [address]/Doug [facility] [place] [address]/ Toi [facility] [place] [address]/01/2025Doug [facility] [place] [address]/Doug [facility] [place] [address]/01/2025[facility] Z01.89[facility] [place] [address]/03/2025[facility] [facility] [place] [address]/Doug [facility] [place] [address]/01/2025Doug HoyAnemia, iron deficiency D50.9 [facility] [place] [address] 01/16/2025Doug [facility] [place] [address]/09/2025Doug HoyArthritis, rheumatoid M06.9 and Cervical radiculopathy M54.12[facility] [place] [address]/oug [facility] [place] [address]/10/2025Doug [facility] [place] [address]/Doug [facility] [place] [address]/08/2025 Toi HoyCervical radiculopathy M54.12 and Shoulder impingement M25.819[facility] [place] [address]/05/2025 Toi HoyArthritis, rheumatoid M06.9[facility] [place] [address]/Doug HoyArthritis, rheumatoid M06.9 [facility] [place] [address] 10/11/2024oug HoyNephrolithiasis N20.0 and Encounter for immunization Z23 Assessments Encounter Date Diagnosis (ICD Code) Assessment Notes Treatment Notes Treatment Clinical Notes Section Notes 10/11/2024 Nephrolithiasis (ICD-10 - N20.0) 11/22/2024rthritis, rheumatoid (ICD-10 - M06.9)01/23/2025ervical radiculopathy (ICD-10 - M54.12)01/23/2025Shoulder impingement (ICD-10 - M25.819)03/01/2025 Arthritis, rheumatoid (ICD-10 - M06.9)12/19/2024Wellness examination (ICD-10 - Z01.89)01/16/2025nemia, iron deficiency (ICD-10 - D50.9)01/24/2025rthritis, rheumatoid (ICD-10 - M06.9)01/24/2025ervical radiculopathy (ICD-10 - M54.12) 04/13/2025rthritis, rheumatoid (ICD-10 - M06.9)07/19/2025Hypokalemia (ICD-10 - E87.6)04/13/2025nemia, iron deficiency (ICD-10 - D50.9)10/11/2024Encounter for immunization (ICD-10 - Z23)04/13/2025Medication management (ICD-10 - Z79.899) Plan Of Treatment Pending Test Test Name Order Date CMP (COMPLETE METABOLIC PANEL) 3 HEMOGLOBIN A1C (GLYCO) 09/11/2023 LIPID PANEL (CHOL/TRIG/HDL/LDL) 09/11/20 23 CBC WITH DIFF 09/11/2023 PSA, PROSTATE-SPECIFIC ANTIGEN MRI Cervical Spine w/o contrast * 2024 ACUTE HEPATITIS PANEL 04/13/2025 FECAL OCCULT BLOOD 12/19/2024 BMP - Basic Metabolic Panel 07/19/2025 CMP - Comprehensive Metabolic Panel 03/17 CMP - Comprehensive Metabolic Panel 01/2025 C [...] Coverage End Date [employer] [address] [place] [address] [phone] [facility] Yun Shanks - patient is the insured Medications Administered Medication Instructions Date of Administration Dosage Notes Dexamethasone, 4mg/mL mL12 mgDexamethasone, 4mg/mL mgTriamcinolone 40 mg/ml mg80mg Medical (General) History Medical History History ICD [...]
--- OUTSIDE RECORDS SUMMARY | 2025-09-18 08:39 | XMS_ITS | Clinical Summary ---
Author Organization [facility] Address [address] [place] [address] Care Team Providers Care Thermal Cutter Hand Name Role Phone Norm Wang MD Primary Care Provider [phone] Luis Antonio García MD Unavailable [phone] Allergies No known active allergies Medications MedicationSigDispense QuantityRefillsLast FilledStart DateEnd DateStatus ezetimibe (ZETIA) 10 mg tablet Take 10 mg by mouth once daily.Active atorvastatin (LIPITOR) 20 mg tablet Take 20 mg by mouth once daily.Active lisinopril (ZESTRIL, PRINIVIL) 20 mg tablet Take 20 mg by mouth once daily.Active Omeprazole 40 mg capsule Take 40 mg by mouth once daily.Active CHEWABLE MULTI VITAMIN ORAL Take by mouth.Active Cholecalciferol, Vitamin D3, 5,000 unit cap Take 5,000 Units by mouth once daily. patient taking once daily with foodActive folic acid 1 mg tablet Take 1 mg by mouth once daily.Active sulfaSALAzine EC (AZULFIDINE EN) 500 mg EC tablet TAKE 2 TABLETS BY MOUTH 4 TIMES A DAY3Active ENTYVIO 300 mg injection 4Active ferrous sulfate 325 mg (65 mg iron) tablet 1 tablet Orally bid for 30 days5Active potassium chloride SR (MICRO-K) 10 mEq CR capsule 1 tablet with food Orally Twice Daily for 30 days5Active tiZANidine (ZANAFLEX) 4 mg tablet Take 8 mg by mouth daily at bedtime.Active methotrexate 2.5 mg tablet TAKE 4 TABLETS BY MOUTH WEEKLYActive tamsulosin (FLOMAX) 0.4 mg Take 1 capsule by mouth every afternoon./3Discontinued(Job Hand Duplicate Med) Active Problems ProblemNoted DateDiagnosed HqoqMpemxyxzuubs55/04/2018Ulcerative pancolitis 02/05/2017Encounter for monitoring of etanercept qhecfav2802/07/2016Vitamin D ccdfzjnhdu08/20/2015Rheumatoid arthritis with positive rheumatoid factor 09/12/2015 Encounters DateTypeDepartmentCare ZryoXmximeryfci56/08/2025Transcribe Orders Referring Physician [facility] [place] [address] Luis Antonio García MD Ulcerative colitis without complications, unspecified location (HCC) (Primary Dx)from Last 3 Months Immunizations ImmunizationAdministration DatesNext Duehepatitis A-hepatitis B (HepA-HepB) vaccine (TWINRIX)12/08/2015,05/31/2015,05/03/2015influenza (IIV3) vaccine, trivalent, PF (AFLURIA, FLUARIX, FLULAVAL, FLUVIRIN, FLUZONE)07/31/2015influenza (IIV4) vaccine, age 6 mo - 64 yr, quadrivalent, PF (AFLURIA, FLUARIX, FLULAVAL, FLUZONE)08/29/2019,08/15/2016influenza (ccIIV4) vaccine, age 6+ mo, quadrivalent (FLUCELVAX)10/28/2019influenza (ccIIV4) vaccine, age 6+ mo, quadrivalent, PF (FLUCELVAX)09/27/2020pneumococcal conjugate (PCV13) vaccine, 13 valent (PREVNAR 13)11/01/2015pneumococcal polysaccharide (PPV23) vaccine, 23 valent (PNEUMOVAX 23)05/03/2015zoster (RZV) vaccine, recombinant (SHINGRIX)06/09/2022,03/17/2022 Social History Tobacco UseTypesPacks/DayYears UsedDateSmoking Tobacco: FormerSmokeless Tobacco: Never Tobacco Cessation:Counseling Given: Not Answered Comments:quit in 2011 Alcohol UseStandard Drinks/WeekCommentsNever0 (1 standard drink = 0.6 oz pure alcohol)AUDIT-CAnswerDate RecordedQ1: How often do you have a drink containing alcohol?Never01/24/2020Average Number of DrinksNot on file01/24/2020Frequency of Binge DrinkingNot on file01/24/2020PHQ-2AnswerDate RecordedPHQ-2 score0 02/10/2019Area Deprivation IndexAnswerDate RecordedNational Score (1-100), lower number is lower ujih084505/04/2023State Score (1-10), lower number is lower risk8 3Data from: https://www.neighborhoodatlas.[facility]/. Last address used for rlfzjluygbw[address]05/04/2023Sex and Gender Information ValueDate RecordedSex Assigned at BirthNot on fileLegal UapZryv8301/18/2014 3:19 PM ESTGender IdentityNot on fileSexual OrientationNot on file Last Filed Vital Signs Vital SignReadingTime TakenCommentsBlood Ologftzl757/6207 8:17 AM EDT Opoek009006/06/2025 8:17 AM RVAVtljkmitohi91.9 ??C (98.4 ??F)05/09/2024 9:08 AM EDTRespiratory Fzvh897002/02/2020 8:37 AM EDTOxygen Ntfbdeoolg75%05/09/2024 9:08 AM EDTInhaled Oxygen Concentration--Xknviq69.3 kg (166 lb)06/06/2025 8:17 AM EDT Fhovai562.6 cm (5' 5.98 )02/02/2020 8:37 AM EDTBody Mass Index26.8102/02/2020 8:37 AM EDT Plan of Treatment DateTypeDepartmentCare Team (Latest Contact Info)Zlrnkpsmlms37/16/2025 10:00 AM ESTOffice Visit Rheumatology [address] [place] [address] Darrian Dubon MD [address] [place] [address] Please also offer another apt later in 2024 or early 2025 (please use 30 min slot) for RA/OPHealth MaintenanceDue DateLast DoneCommentsAnxiety Screening 1982Depression Lmlsgjcgl84/16/1982HIV Ibygqrwvu64/16/1982DTaP,Tdap,Td Vaccine (1 - Tdap)1983Lipid Dkliqmkrd71/16/1999CT Kcsielomgswf82/16/2009 Cologuard (FIT-DNA)05/01/20092788Xvewkfwsykz21/16/2009Colorectal Cancer Screening 2009Fecal Occult Blood2009Prostate Cancer Screening Discussion 05/01/20093383Ekqnnwzvnpctt64/16/2009Pneumococcal Vaccine: 50+ (3 of 3 - PCV20 or PCV21), 05/03/2015Covid-19 Vaccine (2 - Ana Maria risk series) /1RSV Vaccine (1 - Risk 60-74 years 1-dose series)2024 Medicare Advantage Annual Wellness Visit11/16/2024Influenza Vaccine (#1) /, 09/27/2020, 10/28/2019, Additional history existsDiabetes Nfjfxbvbs01/16/330910/, 08/22/2020, 02/10/2019, Additional history exists Shingrix WuihggnWstucioxv27/25/2022, 03/17/2022Hepatitis C ScreeningCompleted 12/01/2023, 08/29/2015 Procedures Procedure NamePriorityDate/TimeAssociated DiagnosisCommentsHEPATITIS C ANTIBODY IA WITH PCNMCAMFTLMQCzxxsia28/16/2024 5:00 PM EST Rheumatoid arthritis involving multiple sites with positive rheumatoid factor (HCC) COMPREHENSIVE METABOLIC QMNQMOhtipld06/16/2024 5:00 PM EST Rheumatoid arthritis involving multiple sites with positive rheumatoid factor (HCC) from Last 3 Months or Most Recently Relevant to Health Maintenance Results * (ABNORMAL) COMP METABOLIC PANEL (12/01/2023 5:00 PM EST)ComponentValueRef RangeTest MethodAnalysis TimePerformed AtPathologist SignatureProtein, Total 8.06.3 - 8.0 g/dL12/02/2023 6:09 AM [facility] LABAlbumin 3.93.9 - 4.9 g/dL01/ 6:09 AM [facility] Calcium, Total10.28.5 - 10.2 mg/dL12/02/2023 6:09 AM [facility] LABBilirubin, Total0.30.2 - 1.3 mg/dL12/02/2023 6:09 AM [facility] LABAlkaline Hqnxrqrikez482(H)38 - 113 U/L12/02/2023 6:09 AM [facility] NEOTIN3967 - 40 U/L12/02/2023 6:09 AM [facility] SJPQKI1051 - 54 U/L12/02/2023 6:09 AM [facility] HOGIiiaqct890(H)74 - 99 mg/dL12/02/2023 6:09 AM [facility] LABComment: The [place] Diabetes Association (ADA) provides guidance for cutoff values for fasting glucose andrandom glucose. The ADA defines fasting as no [...] Standards of Medical Care in Diabetes 2016, [place] [employer]. Diabetes Care. 2016.39(Suppl 1). RMZ794 - 24 mg/dL12/02/2023 6:09 AM [facility] Creatinine0.920.73 - 1.22 mg/dL12/02/2023 6:09 AM [facility] PDDXbbaoh684365 - 144 mmol/L12/02/2023 6:09 AM [facility] LABPotassium4.13.7 - 5.1 mmol/L12/02/2023 6:09 AM [facility] PMTKautigwy485(H)97 - 105 mmol/L12/02/2023 6:09 AM [facility] CDJCW76814 - 30 mmol/L12/02/2023 6:09 AM [facility] LABAnion Jqz064 - 18 mmol/L12/02/2023 6:09 AM [facility] LABEstimated Glomerular Filtration Rate96>=60 mL/min/1.73m 12/02/2023 6:09 AM [facility] LABComment:Estimated Glomerular Filtration Rate (eGFR) is calculated using the 2020 CKD-EPI creatinine equation. This equation utilizes serum creatinine, sex, and age as parameters. The creatinine assay has traceable calibration to isotope dilution- mass spectrometry. Refer to KDIGO guidelines for clinical interpretation. In patients with unstable renal function, e.g. those with acute kidney injury, the eGFRmay not accurately reflect actual GFR.Specimen (Source)Anatomical Location / LateralityCollection Method / VolumeCollection TimeReceived TimeBloodBLOOD SPECIMEN / UnknownVenipuncture / Ibjoikz3912/01/2023 5:00 PM EST12/01/2023 5:02 PM EST Narrative Authorizing ProviderResult TypeResult StatusNidia Ascencio APRN.CNPLABORATORY Final ResultPerforming OrganizationAddressCity/State/ZIP CodePhone Number [facility] [address] [place] [address], * HEPATITIS C ANTIBODY IA WITH CONFIRMATION (12/01/2023 5:00 PM EST)Component ValueRef RangeTest MethodAnalysis TimePerformed AtPathologist SignatureHep C Antibody YFFbmelbrrPexflmni30/17/2024 9:58 AM [facility] LABComment:The result suggests no evidence of active infection with Hepatitis C virus. Should recent infectionbe suspected, repeat testing may be considered 4-6 weeks after this draw.Specimen (Source)Anatomical Location / Laterality Collection Method / VolumeCollection TimeReceived TimeBloodBLOOD SPECIMEN / UnknownVenipuncture / Umixyfe2912/01/2023 5:00 PM EST12/01/2023 5:02 PM EST Narrative Authorizing ProviderResult TypeResult Julia Ascencio APRN.CNPLABORATORY Final ResultPerforming OrganizationAddressCity/State/ZIP CodePhone Number [facility] [address] [place] [address], from Last 3 Months or Most Recently Relevant to Health Maintenance Insurance [place] [address] Care Teams Team MemberRelationshipSpecialtyStart DateEnd Norm Wang MD PCP - GeneralFamily Medicine01/18/14 Luis Antonio García MD [address] [place] [address] [address] [place] [address] ReferringInternal Medicine06/23/25
--- OUTSIDE RECORDS SUMMARY | 2025-09-18 08:45 | XMS_ITS | CCD ---
Author Organization [facility] Care Team Providers Care Ethylbenzene Cracking Supervisor Name Role Phone Rigo Gonzalez Attending Provider Jose L Lackey Primary Care Provider [phone] Jose L Lackey MD Primary Care Provider [phone] Jose L Lackey MD Primary Care Provider [phone] ZIYAD ., DR DOMINGO Primary Care Unavailable HOY ., DR DOMINGO Consulting Unavailable HOY ., DR DOMINGO Attending Unavailable HOY ., DR DOMINGO Admitting Unavailable LEIGHTON, DR KALEIGH Strong Consulting Unavailable HOY ., [...] Jose L Lackey MD Primary Care Provider [phone] Luis Antonio García Attending Unavaila Luis Antonio Bowden Admitting Unavaila Jose L Correa MD Primary Care Provider [phone] JR. KEREN, BRADLY Watters Attending Unavaila karen VELIZ JR., BRADLY Watters Referring Unavaila karen VELIZ JR., BRADLY Watters Attending Unavaila karen VELIZ JR., BRADLY Watters Referring Unavaila JOSE L Correa Primary Care Unavailable DARRIAN DUBON Referring Unavailable DARRIAN DUBON Attending Unavailable DARRIAN DUBON Attending Unavailable JOSE L LACKEY Primary Care Unavailable JOSE L LACKEY Primary Care Unavailable DARRIAN DUBON Attending Unavailable JOSE L LACKEY Primary Care Unavailable DARRIAN DUBON Referring Unavailable JOSE L LACKEY Primary Care Unavailable DARRIAN DUBON Referring Unavailable Ricky, Luis Antonio Claudioal Attending Unavaila ble Sarmini, Luis Antonio Talal Referring Unavaila ble Sarmini, Luis Antonio Talal Admitting Unavaila ble Marcin RAMÍREZ Attending Unavailable Jose L Lackey Referring Unavailable RAMÍREZMarcin R Admitting Unavailable RAMÍREZMarcin Attending Unavailable Sarmini, Luis Antonio Talal Attending Unavaila ble Sarmini, Luis Antonio Talal Attending Unavaila ble Sarmini, Luis Antonio Talal Attending Unavaila ble Sarmini, Luis Antonio Talal Attending Unavaila ble Sarmini, Luis Antonio Talal Attending Unavaila ble Sarmini, Luis Antonio Talal Admitting Unavaila ble Sarmini, Luis Antonio Talal Attending Unavaila ble RAMÍREZMarcin Admitting Unavailable RAMÍREZMarcin Attending Unavailable Sarmini, Luis Antonio Talal Attending Unavaila ble Unavailable Unavailable Unavailable Allergies Allergy ClassificationReported Allergen(s)Allergy TypeDate of OnsetReaction(s) Facility (5 sources)No Known Medication Allergies; Translations: [No Known Medication Allergies]Propensity to adverse reactions (disorder)[facility] Repository (6 sources)beta Sitosterol / ZINC CITRATEDrug Crlagfx39-32-0688WtegycoBDNG Healthcare Medications Current Medications MedicationDrug Class(es)DatesSig (Normalized)Sig (Original)atorvastatin 20 mg oral tablet (20 sources)HMG-CoA Reductase Inhibitortake 1 tablet by mouth once daily atorvastatin (LIPITOR) 20 mg tablet Take 20 mg by mouth once daily. Active Comment on above:Take 20 mg by mouth once daily.CHEWABLE MULTI VITAMIN ORAL (20 sources)CHEWABLE MULTI VITAMIN ORAL Take by mouth. ActiveCHEWABLE MULTI VITAMIN ORAL Take by mouth. 0 ActiveComment on above:Take by mouth. cholecalciferol 0.125 mg oral capsule (20 sources)Vitamin DCholecalciferol, Vitamin D3, 5,000 unit cap Take 5,000 Units by mouth once daily. patient taking once daily with food Activetake 1 capsule by mouth in the morningcholecalciferol (Vitamin D-3) 125 MCG (5000 UT) capsule Take 5,000 Units by mouth in the morning. ActiveComment on above:Take 5,000 Units by mouth once daily. patient taking once daily with fooddicyclomine hydrochloride 10 mg oral capsule (8 sources)AnticholinergicStart: 12-17-2022 End: 84-33-4693dndl 1 capsule by mouth four times dailydicyclomine (Bentyl) 10 MG capsule TAKE 1 CAPSULE BY MOUTH 4 TIMES A DAY 12/17/2022 ActiveComment on above:TAKE 1 CAPSULE BY MOUTH 4 TIMES A DAYezetimibe 10 mg oral tablet (20 sources)Dietary Cholesterol Absorption Inhibitortake 1 tablet by mouth once dailyezetimibe (ZETIA) 10 mg tablet Take 10 mg by mouth once daily. Active Comment on above:Take 10 mg by mouth once daily.ferrous sulfate 325 mg oral tablet (9 sources)Start: 00-76-0237bkkx 1 tablet by mouth twice dailyferrous sulfate 325 mg (65 mg iron) tablet 1 tablet Orally bid for 30 days 03/02/2025 Active Start: 01-06-2024 End: 70-36-1517rvld 1 tablet by mouth every twelve hoursferrous sulfate 325 mg (65 mg iron) tablet Take 1 tablet by mouth every 12 hours. 0 01/06/202403/14 Discontinuedferrous sulfate 325 (65 Fe) MG EC tablet Take 325 mg by mouth in the morning and 325 mg at noon ime312 mg in the evening. Take with meals. Do not crush, chew, or split. ActiveComment on above:Take 1 tablet by mouth every 12 hours.folic acid 1 mg oral tablet (20 sources)Start: 38-45-6653basz 1 tablet by mouth once dailyfolic acid 1 mg tablet Take 1 mg by mouth once daily. 0 08/03/2018 ActiveComment on above:Take 1 mg by mouth once daily.lisinopril 20 mg oral tablet (20 sources)Angiotensin Converting Enzyme Inhibitortake 1 tablet by mouth once dailylisinopril (ZESTRIL, PRINIVIL) 20 mg tablet Take 20 mg by mouth once daily. ActiveComment on above:Take 20 mg by mouth once daily.methotrexate 2.5 mg oral tablet (4 sources)Folate Analog Metabolic Inhibitortake 4 tablets by mouth every week methotrexate 2.5 mg tablet TAKE 4 TABLETS BY MOUTH WEEKLY Activemethotrexate 2.5 MG tablet Take by mouth. Follow directions carefully, and ask to explain any part you do not understand. Take exactly as directed. ActiveMultiple Vitamins- Minerals (CENTRUM ADULTS PO) (6 sources)Multiple Vitamins-Minerals (CENTRUM ADULTS PO) Orally Active omeprazole 40 mg delayed release oral capsule (20 sources)Proton Pump Inhibitortake 1 capsule by mouth once dailyOmeprazole 40 mg capsule Take 40 mg by mouth once daily. ActiveComment on above:Take 40 mg by mouth once daily.potassium chloride 10 meq extended release oral capsule (2 sources)Start: 04-86-5799zoln 1 tablet by mouth twice daily at mealtime potassium chloride SR (MICRO-K) 10 mEq CR capsule 1 tablet with food Orally Twice Daily for 30 days05/17/2025 ActivesulfaSALAzine 500 mg delayed release oral tablet (20 sources)AminosalicylateStart: 51-67-6834tazz 2 tablets by mouth four times dailysulfaSALAzine EC (AZULFIDINE EN) 500 mg EC tablet TAKE 2 TABLETS BY MOUTH 4 TIMES A DAY 11/03/2023 ActiveSULFASALAZINE ORAL Take by mouth. takes 8 pills a days, divided three times daily (3 in am, 3 noon,2 pm), per assurance analyst 0 ActiveComment on above:Take by mouth. takes 8 pills a days, divided three times daily (3 in am, 3 noon, 2 pm), per assurance analyst TAKE 2 TABLETS BY MOUTH 4 TIMES A DAYtiZANidine 4 mg oral tablet (7 sources)Central alpha-2 Adrenergic AgonisttiZANidine (ZANAFLEX) 4 mg tablet Take 8 mg by mouth daily at bedtime. Active End: 72-36-7852mhye 1 capsule by mouth in the morning, then take 1 capsule by mouth in the evening, then take 1 capsule by mouth at bedtimetiZANidine (Zanaflex) 4 MG capsule Take 4 mg by mouth in the morning and 4 mg in the evening and 4 mg before bedtime. 05/03/2025 DiscontinuedTurmeric extract (5 sources)Turmeric 400 MG capsule Take by mouth Activevedolizumab 300 mg injection (17 sources)Integrin Receptor AntagonistStart: 11-11-2023 End: 25-98-7195YOCTJSU 300 mg injection as directed every 8 wks 0 11/11/2023 05/09/2024 Discontinued (Discontinuedby Patient)Start: 09-10-7057PBSIHYC 300 mg injection 08/11/2024 ActiveComment on above:as directed every 8 wks Completed/Discontinued Medications MedicationDrug Class(es)DatesSig (Normalized)Sig (Original)0.4 ml adalimumab 100 mg/ml auto-injector (6 sources)Tumor Necrosis Factor BlockerStart: 02-18-2021 End: 48-75-1187TYAPVV,CF, PEN 40 mg/0.4 mL pen kit Inject 40 mg subcutaneously every 2 weeks. Prescribed by Online Marketing Coordinator : Nel Lebron MD Previously prescr. by Ronald Brown MD 0 02/18/2021 05/04/2023 DiscontinuedComment on above:Inject 40 mg subcutaneously every 2 weeks. Prescribed by Online Marketing Coordinator : Nel Lebron MD Previously prescr. by Ronald Brown MD azelastine hydrochloride 0.5 mg/ml ophthalmic solution (12 sources)Histamine-1 Receptor AntagonistStart: 09-18-2022 End: 61-95-8327jykw 1 drop(s) into the eye(s) once dailyAzelastine HCl (OPTIVAR) 0.05 % ophthalmic solution INSTILL 1 DROP INTO EYE ONCE DAILY 0 09/18/2022 05/09/2024 DiscontinuedComment on above:INSTILL 1 DROP INTO EYE ONCE DAILY24 hr budesonide 9 mg extended release oral tablet (2 sources)CorticosteroidStart: 01-04-2020 End: 00-39-4527echb 1 tablet by mouth once dailyUCERIS 9 mg TaDE Take 1 tablet by mouth once daily. 0 01/04/2020 01/29/2022 Discontinued (Discontinued by another Health Care Provider)Comment on above:Take 1 tablet by mouth once daily. Cetirizine (9 sources)Histamine-1 Receptor AntagonistCETIRIZINE HCL (ZYRTEC ORAL) Take by mouth. 0 ActiveComment on above:Take by mouth.0.5 ml etanercept 50 mg/ml prefilled syringe (1 source)Tumor Necrosis Factor BlockerStart: 12-29-2019 End: 46-06-6103awhtnm 0.5 mL by subcutaneous injection two times weekly etanercept (ENBREL) 25 mg/0.5 mL (0.5) syrg Indications: Rheumatoid arthritis involving multiple sites with positive rheumatoid factor (HCC) Inject 0.5 mL subcutaneously two times a week. 8 Syringe 11 12/29/2019 02/20/2021 Discontinued (Changing Therapy/Dosage Form)Comment on above:Inject 0.5 mL subcutaneously two times a week.meloxicam 15 mg oral tablet (2 sources)Nonsteroidal Anti-inflammatory Drug End: 64-84-3066yitf 1 tablet by mouth once dailymeloxicam (MOBIC) 15 mg tablet Take 15 mg by mouth once daily. 06/06/2025 Discontinued (Discontinued by Patient)mesalamine 66.7 mg/ml enema (15 sources)AminosalicylateStart: 01-17-2022 End: 23-11-2084hzajtquhym (ROWASA) 4 gram/60 mL enema USE 1 ENEMA RECTALLY EVERY DAY AT BEDTIME 0 01/17/2022 03/14/2024 Discontinuedmesalamine (Rowasa) 4 g enema as directed Rectal ActiveComment on above:USE 1 ENEMA RECTALLY EVERY DAY AT BEDTIMEpredniSONE 10 mg oral tablet (2 sources)Start: 12-02-2023 End: 40-01-6163cpeefzVCCV (DELTASONE) 10 mg tablet PLEASE SEE ATTACHED FOR DETAILED DIRECTIONS 0 12/02/2023 03/14/2024 DiscontinuedComment on above:PLEASE SEE ATTACHED FOR DETAILED DIRECTIONStraMADol hydrochloride 50 mg oral tablet (2 sources)Opioid Agonist End: 13-92-6629lzjj 1 tablet by mouth every six hours as neededtraMADol (ULTRAM) 50 mg tablet Take 50 mg by mouth every 6 hours as needed for pain. 06/06/2025 Discontinued (Discontinued by Patient)turmeric root extract 500 mg cap (11 sources) End: 79-59-7923movx 1 tablet by mouth three times dailyturmeric root extract 500 mg cap Take 500 mg by mouth once daily. Take one(1) tablet three times daily. 06/06/2025 Discontinued (Discontinued by Patient)take 1 tablet by mouth three times dailyturmeric root extract 500 mg cap Take 500 mg by mouth once daily. Take one(1) tablet three times daily. Activetake 1 tablet by mouth three times dailyturmeric root extract 500 mg cap Take 500 mg by mouth once daily. Take one(1) tablet three times daily. 0 Activetake 1 tablet by mouth three times dailyturmeric root extract 500 mg cap Take by mouth. Take one(1) tablet three times daily. 0 ActiveComment on above:Take by mouth. Take one(1) tablet three times daily.100 ml zoledronic acid 0.05 mg/ml injection (1 source)BisphosphonateStart: 05-09-2024 End: 20-08-5570bdykexkdze acid 5 mg PREMIX piggyback (RECLAST) Problems Active Problems Problem ClassificationProblemDateDocumented DateEpisodic/ChronicAcquired foot deformities (1 source)Talipes planus; Translations: [Flat foot [pes planus] (acquired), unspecified foot]58-33-2492HlblttqoOefykcmlcrfpxg/social admission (8 sources)Follow-up status; Translations: [Person consulting for explanation of examination or test findings]EpisodicImmunizations and screening for infectious disease (1 source)Other specified abnormal immunological findings in serum; Translations: [Other and unspecified nonspecific immunological findings]Episodic Nutritional deficiencies (20 sources)Vitamin D deficiency; Translations: [Vitamin D deficiency, unspecified]Onset: 037877-92-4893UzwqpcrYlboklddffmfrg (20 sources)Degenerative joint disease involving multiple joints; 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]Onset: 987685-65-6842UdjzwybHlyrqzjrcjmd (20 sources)Osteoporosis; Translations: [Age-related osteoporosis without current pathological fracture]Onset: 497885-94-4899UnfhonpJergm acquired deformities (1 source)Ankle joint deformity; Translations: [Unspecified acquired deformity of left lower leg]87-24-9294FnmonlbjMvclr aftercare (20 sources)Patient encounter status; Translations: [Encounter for therapeutic drug level monitoring]Onset: 861018-79-0680BbljhchyQaifx aftercare (2 sources)Other fci (current) drug therapy; Translations: [OTH SNF CURRENT DRUG THERAPY]Onset: 80-55-7992CfpyvhtlIwjyy aftercare (5 sources)Drug therapy finding; Translations: [Other rocket engine component mechanic (current) drug therapy]EpisodicOther bone disease and musculoskeletal deformities (1 source)Disorder of bone; Translations: [Other specified disorders of bone density and structure, unspecified site]28-13-3380GljhmfosLfuxh bone disease and musculoskeletal deformities (1 source)Osteopenia; Translations: [Other specified disorders of bone density and structure, multiple sites]42-19-4700NjgcnfzfIqcnw bone disease and musculoskeletal deformities (1 source)Other specified disorders of bone density and structure, multiple sites; Translations: [Osteopenia of multiple sites]Onset: 73-56-7716Eihswghu Other connective tissue disease (6 sources)History of total knee arthroplasty; Translations: [Presence of unspecified artificial knee joint]Onset: 958541-04-1969WzlarqaUbkgq connective tissue disease (8 sources)History of total replacement of right hip joint; Translations: [Presence of right artificial hip joint]Onset: 989807-66-6514PjngmekAdngn connective tissue disease (2 sources)History of left total knee replacement; Translations: [Presence of left artificial knee joint]56-27-2620UoobdlfUaloh connective tissue disease (2 sources)History of right total knee replacement; Translations: [Presence of right artificial knee joint]79-82-2238RteibayAsjeu connective tissue disease (1 source)History of osteoporosis; Translations: [Personal history of other diseases of the musculoskeletal system and connective tissue]80-59-3610Nlekgtna Other connective tissue disease (1 source)Personal history of other diseases of the musculoskeletal system and connective tissue; Translations: [History of osteoporosis]Onset: 06-06-2025 EpisodicOther ear and sense organ disorders (6 sources)Chronic otitis externa; Translations: [Other otitis externa, right ear]Onset: 635808-58-2236NuogaezLdtbl ear and sense organ disorders (6 sources)Sensorineural hearing loss, bilateral; Translations: [Sensorineural hearing loss, bilateral]Onset: 490451-42-0692XatyvvqBtrvy liver diseases (1 source)Alkaline phosphatase raised; Translations: [Abnormal levels of other serum enzymes]73-08-9550NikzwchhQwkpa non-traumatic joint disorders (1 source)Chronic ankle pain; Translations: [Pain in left ankle and joints of left foot]93-71-1095SwolvzjvOtmvp non-traumatic joint disorders (2 sources)Hip pain; Translations: [Pain in right hip]27-07-4341GcboydbaNqgbm non-traumatic joint disorders (4 sources)Pain in right knee; Translations: [Pain in joint, lower leg] 20-87-0532EzrtkkwmKkhftjfg enteritis and ulcerative colitis (20 sources)Ulcerative pancolitis; Translations: [Ulcerative (chronic) pancolitis without complications]Onset: 381076-88-5493KhvkserLfzpvtqb codes; unclassified (2 sources)At risk for injury; Translations: [Other specified personal risk factors, not elsewhere classified]03-00-4516YgfedweoHqjlevaq codes; unclassified (4 sources)History of drug therapy; Translations: [Personal history of other drug therapy]62-13-8706QihxmurdPccqkusf codes; unclassified (1 source)Personal history of other drug therapy; Translations: [History of bisphosphonate therapy]Onset: 55-61-1843EfoohmllBrhbxxikzr arthritis and related disease (20 sources)Rheumatoid factor positive rheumatoid arthritis; Translations: [Rheumatoid arthritis with rheumatoid factor, unspecified]Onset: 09-12-2015 50-86-5134CfnzabyJraxgnkduxk; intervertebral disc disorders; other back problems (2 sources)Other intervertebral disc degeneration, lumbar region; Translations: [Spondylosis without myelopathy or radiculopathy, lumbar region]Onset: 37-94-4098TqdoxaqOynsjqyfmjf; intervertebral disc disorders; other back problems (2 sources)Spinal stenosis, lumbar region without neurogenic claudication; Translations: [Cervicalgia]Onset: 33-19-1920TagnytokOyjoyobkozl injury; contusion (1 source)Foreign body in hand; Translations: [Superficial foreign body of left hand, sequela]29-05-5258SmfseuvkEzucczo disorders (4 sources)Hypothyroidism, unspecified; Translations: [HYPOTHYROIDISM UNSPECIFIED]Onset: 64-26-5780ZphymcvFzuisjsyrvib (3 sources)LOW BACK PAIN, UNSPECIFIED; Translations: [LOW BACK PAIN, UNSPECIFIED]Onset: 70-24-3979Qyqddzflgppd (1 source)CONTACT W/AND (SUSP) EXPOS COVID-19; Translations: [CONTACT W/AND (SUSP) EXPOS COVID-19]Onset: 58-07-4092Lryihkaalzym (1 source)On methotrexate therapy; Translations: [On methotrexate therapy]Onset: 06-06-2025 Past or Other Problems Problem ClassificationProblemDateDocumented DateEpisodic/ChronicOther aftercare (11 sources)Long-term current use of drug therapy; Translations: [Encounter for therapeutic drug level monitoring]Onset: 047643-97-3103NkrvadjyUekwe circulatory disease (4 sources)Elevated blood-pressure reading, without diagnosis of hypertension; Translations: [ELEVATED BP READING W/O DX HTN]Onset: 08-90-6992IrxikfrkDoghrxkzx and history of mental health and substance abuse codes (1 source)Personal history of nicotine dependence; Translations: [PERSONAL HISTORY OF NICOTINE DEPEND]Onset: 57-84-2047UhnnqpweMvrkqqaflkry (1 source)LOW BACK PAIN, UNSPECIFIED; Translations: [LOW BACK PAIN, UNSPECIFIED] Onset: 11-24-2022 Results Test NameValueInterpretationReference RangeFacilityReminderson 09-15-2025 RemindersReminders From: Evelin Enriquez To: Jossie Roberts; Evelin Enriquez; Sent: 09/15/2025 08:15:23 EDT Show up: 11/27/2025 08:15:00 EST Subject: Colonoscopy Due Date/Time: 12/18/2025 08:15:00 EST Reminder/Recall Addendum by Jeannine Santizo MA on August 02, 2025 14:52 EDT Patient would like to push procedures back to December. Call to schedule in November. Labs are being watched monthly by PCP. From: Evelin Enriquez To: Jossie Roberts; Evelin Enriquez; Sent: 06/27/2025 15:51:50 EDT Show up: 08/21/2025 15:51:00 EDT Subject: EGD & Colon Due Date/Time: 09/18/2025 15:51:00 EST Reminder/Recall Per Dr. Ricky caro call pt in august to schedule push and colonscopy in [facility] use peds scope (clear cap for both)[facility] 94-63-4018XqwxluhutFapqrgcre From: Evelin Enriquez To: Jossie Roberts; Evelin Enriquez; Sent: 06/27/2025 15:51:50 EDT Show up: 08/21/2025 15:51:00 EDT Subject: EGD & Colon Due Date/Time: 09/18/2025 15:51:00 EST Reminder/Recall Per Dr. Ricky caro call pt in august to schedule push and colonscopy in [facility] use peds scope (clear cap for both) Patient would like to push procedures back to December. Call to schedule in November. Labs are being watched monthly by PCP.[facility] Gastroenterology Office/Clinic Noteon [id number] Office/Clinic NoteGastroenterology Office/Clinic Note Chief Complaint follow up to [...] examine duodenum well including papilla Assessment/Plan 1. [place] ulcerative colitis (K51.00: Ulcerative (chronic) pancolitis without [...] the transverse colon and rectum and tubovillous polypin the transverse colon was high risk of UC, repeat colonoscopy in May did not show dysplasia or tubular adenomas, but he remains at high risk, if he is interested we can always refer to IBD specialist for next colonoscopy, he prefers to stay at [facility] Colonoscopy 04/2025 showed full remission. Biopsies did not show active inflammation, did show TA from rectal and rectosigmoid colon biopsy, HP from sigmoid polyp He also has RA, was following with Dr. Valente at [place], prescribed sulfasalazine, methotrexate. Currently his PCP is prescribing his medication. Recommended he continue to see rheumatology. He does not want to go back to Dr Valente, will refer to other retail customer service specialist at [facility]. We discussed lifestyle modifications including Mediterranean diet and exercise Discussed health maintenance as well including vaccinations, getting his DEXA scan with Dr. Tatum and osteoporosis therapy - Schedule Colonoscopy in September to evaluate. Discussed risks such as bleeding, injury and perforation as well as benefits. Patient agreeable. - Referred to rheumatology at [facility] 2. History of colon polyps (Z86.0100: [...] bladder emptying Gross hematuria (more content not included)...[facility] HospitalComment on above: Result Comment: Electronically Signed By: Jeannine Santizo MA\.br\Date and Time Signed: 06/21/25 10:40 EDT\.br\Electronically Co-Signed By: Luis Antonio García MD\.br\Date and Time Co-Signed: 06/22/25 11:13 EDTAmbulatory Visit Summaryon [id number] Visit SummaryAmbulatory Visit Summary JAM TOSCANO :1965 Visit Date:06/21/2025 Ambulatory Visit Instructions Your Diagnosis [place] ulcerative colitis History of colon polyps Elevated [...] Someone Will Contact You Regarding These Appointments [facility] External Ambulatory Referral, Rheumatology, 06/21/25 10:35:00 EDT, [place] ulcerative colitis History of colon polyps Elevated alkaline phosphatase level Anemia Medications What How Much When Instructions Unchanged atorvastatin (atorvastatin 20 mg Tab) 1 Tablets By Mouth Every day Contact prescribing physician if questions or concerns Unchanged cholecalciferol (cholecalciferol 5000 intl units oral capsule) By Mouth Every day Contactprescribing physician if questions or concerns Unchanged ezetimibe (Zetia 10 mg Tab) 1 Tablets By Mouth Every day Contact prescribing physician ifquestions or concerns Unchanged ferrous sulfate (ferrous sulfate [...] MEQ capsule) 0 Contact prescribing physician if questionsor concerns Unchanged multivitamin with minerals (Multivitamins and [...] PSA (prostate specific antigen) Ulcerative colitis, universal [place] ulcerative colitis Ureteral stone with hydronephrosis Urethral [...] your results and ot (more content not included)...[facility] S[facility]on 29-69-1349CO DXA - AXIAL SKELETON* * *Final Report* * * DATE OF EXAM: Jun 06 2025 8:13AM LNB 0804 - BD DXA - AXIAL SKELETON / PROCEDURE REASON: multiple diagnoses * * * * Physician Interpretation * * * * EXAMINATION: DXA BONE DENSITOMETRY BD DXA - AXIAL SKELETON, BD DXA TRABECULAR BONE SCORE (TBS) PATIENT DEMOGRAPHICS: Age: 60 years, Gender: Male SCANNER INFORMATION: DXA Model: [employer]ers [id number] Date Scanned: 06/06/2025 8:13 AM CLINICAL HISTORY: [...] MORE INFORMATION ABOUT DIAGNOSIS AND TREATMENT: [facility] for Osteoporosis and Metabolic Bone Disease:? www.ccf.org/arthritis/osteo National Osteoporosis Foundation:? www.nof.org International Society of Clinical Densitometry www.iscd.org Fur Stretcher: [id number] Transcribe Date/Time: Jun 06 2025 8:19A Dictated by : DARRIAN DUBON MD This examination was interpreted and the report reviewed and electronically signed by: DARRIAN DUBON MD on Jun 12 2025 5:22PM EST [id number] -[id number] TRABECLR BONE SCORE (TBS)on 61-65-8993QB DXA TRABECLR BONE SCORE (TBS)* * *Final Report* * * DATE OF EXAM: Jun 06 2025 8:13AM LNB 0801 - BD DXA TRABECLR BONE SCORE (TBS) / PROCEDURE REASON: multiple diagnoses * * * * Physician Interpretation * * * * EXAMINATION: DXA BONE DENSITOMETRY BD DXA - AXIAL SKELETON, BD DXA TRABECULAR BONE SCORE (TBS) PATIENT DEMOGRAPHICS: Age: 60 years, Gender: Male SCANNER INFORMATION: DXA Model: [employer]ers [id number] Date Scanned: 06/06/2025 8:13 AM CLINICAL HISTORY: [...] MORE INFORMATION ABOUT DIAGNOSIS AND TREATMENT: [facility] [facility]oporosis [facility] Met[facility] Disease:? www.ccf.org/arthritis/osteo National Osteoporosis Foundation:? www.nof.org International Society of Clinical Densitometry www.iscd.org Fur Stretcher: [id number] Transcribe Date/Time: Jun 06 2025 8:19A Dictated by : DARRIAN DUBON MD This examination was interpreted and the report reviewed and electronically signed by: DARRIAN DUBON MD on Jun 12 2025 5:22PM EST [id number]_IDCSIACN -2.1NormalPremier Health Atrium Medical CenterOV [id number] Visit (ANGEL) JAM TOSCANO ([id number]) 1965 M Date Time Provider Department 06/06/25 8:20 AM DARRIAN DUBON During your visit today, we recorded the following information about you: Pulse Blood pressure Weight 66/minute 124/62 75.3 kg Darrian Dubon MD 06/07/2025 3:19 PM Signed FOLLOW UP VISIT Patient's Name: Jam Erwin [facility] [address] PCP: Jose L Lackey MD [address] [place] [address] Consult Requested by: Jose L Lackey MD [address] [facility] [address] Other physicians: Online Marketing Coordinator prev. Nel Lebron MD (his prev. assurance analyst left- Ronald Brown MD) ; Now following with Dr. Luis Antonio García Accompanied by: self Interim history: is here for f/u RA and OP Recording using ambient [employer] software for draft documentation of the visit was discussed with the patient/authorized district sales representative; all questions welcomed and answered. Patient/authorized district sales representative agreed to proceed Reports doing fine today, but this would be his last apt. 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 He has also been seeking local retail customer service specialist closer to home for him. This is [...] He is still undergoing evaluation by his assurance analyst for his IBD disease activity. He has been on Entyvio. States he has gastrointestinal evaluation by his assurance analyst and states - Undergoing capsule endoscopy tomorrow to evaluate small intestine for potential tumors or bleeding. - Recent colonoscopy showed small benign tumors. States told his tumors were benign But still needs the camera States because he is bleeding and requiring His PCP and Online Marketing Coordinator are addressing his anemia and further evaluating He had iron infusion 05/26/2025 States he is on potassium and iron infusion by his Primary care physician States his Primary care physician started him on 4 tbs/wk and is comfortable with that He continues on the sulfasalazine, and states his assurance analyst prescribes it, as well as the Entyvio. [...] He follows with Gastroenter (more content not included)...[facility] Reminderson 04-29-8528IydahxdsnPgiyhulgb From: Tamiko Garcia I To: [facility] - Reminders/Recalls; Sent: 06/06/2025 07:53:34 EDT Show up: 03/16/2026 07:53:00 EDT Subject: Colonoscopy recall Due Date/Time: 05/11/2026 07:53:00 EDT Reminder/Recall 1 year colon recall - Dr. García 05/11/25[facility] HospitalGastroenterology Office/Clinic Noteon [id number] Office/Clinic NoteGastroenterology Office/Clinic Note Chief Complaint follow up to egd/colonoscopy HPI Staff Established patient is a(n) 60 year old male who presents today for a follow up to EGD & Colonoscopy on 05/11/25. Colon recall needs placed. GI complaints: No. Continues Entyvio subq. serviced through [facility]. Any blood thinners? no Any GLP-1 agonists? [...] 90.8 fL (12/14/24) Chloride: 108 mmol/L (12/14/24) [place] Absolute: 0.5 E9/L (12/14/24) CO2: 27 mmol/L (12/14/24) [place] Auto: 7.5 % (12/14/24) Creatinine: 0.8 mg/dL [...] the transverse colon and rectum and tubovillous polypin the transverse colon was high risk of UC, repeat colonoscopy in May did not show dysplasia or tubular adenomas, but he remains at high risk, if he is interested we can always refer to IBD specialist for next colonoscopy, he prefers to stay at [facility] (more content not included)...[facility] HospitalComment on above:Result Comment: Electronically Signed By: Jeannine Santizo MA\.br\Date and Time Signed: 05/22/25 09:02 EDT\.br\Electronically Co-Signed By: Ricky ROBLERO, Luis Antonio Tiwari\.br\Date and Time Co-Signed: 05/24/25 14:37 EDT25([place])D3 [facility] [id number]-nelceojgibwgzw D3 [Mass/Vol]60.0 ng/hDUiprkn50.0-80.0 [facility] CenterComment on above:Order Comment: Specimen Type: BLOOD SPECIMEN Ordering Facility: [facility] Address: [address] [place], [place] [address]Performed By: #### 1989-3 #### [facility] CLIA [id number] [address] [place] [address] OF [facility] W Auto Differential panel (Bld)on 26-57-5447Gpgmklrjs (Bld) [#/Vol]0.03 10*3/uLNormal<0.11CLakeHealth Beachwood Medical CenterComharper university hospital on above:Order Comment: Specimen Type: BLOOD SPECIMEN Ordering Facility: [facility] Address: [address] [place], [place] [address]Performed By: #### 17766-5 #### [facility] CLIA [id number] [address] [place] [address] 61571Xjqtjtrhu/100 WBC (Bld)0.4 %NormalTogus Va Medical Center Comment on above:Order Comment: Specimen Type: BLOOD SPECIMEN Ordering Facility: [facility] Address: [address] [place], [place] [address]Performed By: #### 84879-7 #### [facility] CLIA [id number] [address] [place] [address] 43981Xujbehufwcxg cell count method Nom (Bld)AutoNormalClevelCincinnati Shriners Hospital on above:Order Comment: Specimen Type: BLOOD SPECIMEN Ordering Facility: [facility] Address: [address] [place], [place] [address]Performed By: #### 46717-7 #### [facility] CLIA [id number] [address] [place] [address] 41717Vqczjwictqq (Bld) [#/Vol]10*3/uLNormal<0.46[facility] on above:Order Comment: Specimen Type: BLOOD SPECIMEN Ordering Facility: [facility] Address: [address] [place], [place] [address]Performed By: #### 61317-3 #### [facility] CLIA [id number] [address] [place] [address] 22863Qojdozimtin/100 WBC (Bld)0.0 %NormalTogus Va Medical Center Comment on above:Order Comment: Specimen Type: BLOOD SPECIMEN Ordering Facility: [facility] Address: [address] [place], [place] [address]Performed By: #### 50383-6 #### [facility] CLIA [id number] [address] [place] [address] 25516Rwmvkwmskpt distribution width (RBC) [Ratio]15.0 %Normal 11.5-15.0[facility] on above:Order Comment: Specimen Type: BLOOD SPECIMEN Ordering Facility: [facility] Address: [address] [place], [place] [address]Performed By: #### 36810-0 #### [facility] CLIA [id number] [address] [place] [address] 18721Aamarggvmk (Bld) [Volume fraction]35.9 %Low39.0-51.0[facility] on above:Order Comment: Specimen Type: BLOOD SPECIMEN Ordering Facility: [facility] Address: [address] [place], [place] [address]Performed By: #### 48775-5 #### [facility] CLIA [id number] [address] [place] [address] 93817Dpqcmjugxh (Bld) [Mass/Vol]11.6 g/dLLow13.0-17.0[facility] on above:Order Comment: Specimen Type: BLOOD SPECIMEN Ordering Facility: [facility] Address: [address] [place], [place] [address]Performed By: #### 28978-7 #### [facility] CLIA [id number] [address] [place] [address] 76607Tvyveelb granulocytes (Bld) [#/Vol]10*3/uLNormal<0.10[facility] on above:Order Comment: Specimen Type: BLOOD SPECIMEN Ordering Facility: [facility] Address: [address] [place], [place] [address]Performed By: #### 10150-9 #### [facility] CLIA [id number] [address] [place] [address] 18562Rggnfocd granulocytes/100 WBC (Bld)0.1 %NormalThe [facility] Hospital on above:Order Comment: Specimen Type: BLOOD SPECIMEN Ordering Facility: [facility] Address: [address] [place], [place] [address]Performed By: #### 15446-1 #### [facility] CLIA [id number] [address] [place] [address] 65833Tlkzrnrujiu (Bld) [#/Vol]1.69 10*3/uLNormal1.00-4.00[facility] on above:Order Comment: Specimen Type: BLOOD SPECIMEN Ordering Facility: [facility] Address: [address] [place], [place] [address]Performed By: #### 68655-1 #### [facility] CLIA [id number] [address] [place] [address] 21658Khbpgidomsg/100 WBC (Bld)21.2 %NormalThe Jewish Hospital on above:Order Comment: Specimen Type: BLOOD SPECIMEN Ordering Facility: [facility] Address: [address] [place], [place] [address]Performed By: #### 77082-6 #### [facility] CLIA [id number] [address] [place] [address] 89157KVS (RBC) [Entitic mass]30.1 qpVhykle16.0-34.0[facility] on above:Order Comment: Specimen Type: BLOOD SPECIMEN Ordering Facility: [facility] Address: [address] [place], [place] [address]Performed By: #### 45387-3 #### [facility] CLIA [id number] [address] [place] [address] 89174DBVO (RBC) [Mass/Vol]32.3 g/vGUuopql57.5-36.0[facility] on above:Order Comment: Specimen Type: BLOOD SPECIMEN Ordering Facility: [facility] Address: [address] [place], [place] [address]Performed By: #### 43468-7 #### [facility] CLIA [id number] [address] [place] [address] 54213IKR (RBC) [Entitic vol]93.0 nBIlilge98.0-100.0[facility] on above:Order Comment: Specimen Type: BLOOD SPECIMEN Ordering Facility: [facility] Address: [address] [place], [place] [address]Performed By: #### 48194-9 #### [facility] CLIA [id number] [address] [place] [address] 50654Qjzxekfla (Bld) [#/Vol]0.73 10*3/uLNormal<0.87[facility] on above:Order Comment: Specimen Type: BLOOD SPECIMEN Ordering Facility: [facility] Address: [address] [place], [place] [address]Performed By: #### 74196-7 #### [facility] CLIA [id number] [address] [place] [address] 81596Cfdytpcky/100 WBC (Bld)9.2 %NormalTogus Va Medical Center Comment on above:Order Comment: Specimen Type: BLOOD SPECIMEN Ordering Facility: [facility] Address: [address] [place], [place] [address]Performed By: #### 23726-7 #### [facility] CLIA [id number] [address] [place] [address] 03024Aucnzovbxhe (Bld) [#/Vol]5.50 10*3/uLNormal1.45-7.50[facility] CenterComharper university hospital on above:Order Comment: Specimen Type: BLOOD SPECIMEN Ordering Facility: [facility] Address: [address] [place], [place] [address]Performed By: #### 47663-6 #### [facility] CLIA [id number] [address] [place] [address] 89168Vefwfbagupk/100 WBC (Bld)69.1 %NormalTogus Va Medical CenterComment on above:Order Comment: Specimen Type: BLOOD SPECIMEN Ordering Facility: [facility] Address: [address] [place], [place] [address]Performed By: #### 71985-3 #### [facility] CLIA [id number] [address] [place] [address] 42334Bbjdqgdax RBC (Bld) [#/Vol]10*3/uLNormal<0.01[facility] on above:Order Comment: Specimen Type: BLOOD SPECIMEN Ordering Facility: [facility] Address: [address] [place], [place] [address]Performed By: #### 85715-3 #### [facility] CLIA [id number] [address] [place] [address] 09704Eapygefje RBC/100 WBC (Bld) [Ratio]0.0 /100 WBCNormalClevelJ.W. Ruby Memorial Hospital ClevelandComment on above:Order Comment: Specimen Type: BLOOD SPECIMEN Ordering Facility: [facility] Address: [address] [place], [place] [address]Performed By: #### 86766-9 #### [facility] CLIA [id number] [address] [place], [place] [address]Dtbotlmg mean volume (Bld) [Entitic vol]8.4 fLLow9.0-12.7 [facility] on above:Order Comment: Specimen Type: BLOOD SPECIMEN Ordering Facility: [facility] Address: [address] [place], [place] [address]Performed By: #### 85214-5 #### [facility] CLIA [id number] [address] [place] [address] 44812Rfzymtnll (Bld) [#/Vol]337 10*3/aFAaidke591-196WlqxyzcuzThe Jewish Hospital on above:Order Comment: Specimen Type: BLOOD SPECIMEN Ordering Facility: [facility] Address: [address] [place], [place] [address]Performed By: #### 16832-6 #### [facility] CLIA [id number] [address] [place] [address] 43974CBL (Bld) [#/Vol]3.86 10*6/uLLow4.20-6.00[facility] on above:Order Comment: Specimen Type: BLOOD SPECIMEN Ordering Facility: [facility] Address: [address] [place], [place] [address]Performed By: #### 45520-8 #### [facility] CLIA [id number] [address] [place], [place] [address]LAA (Bld) [#/Vol]7.96 10*3/uLNormal3.70-11.00[facility] on above:Order Comment: Specimen Type: BLOOD SPECIMEN Ordering Facility: [facility] Address: [address] [place], [place] [address]Performed By: #### 96420-5 #### [facility] CLIA [id number] [address] [place], [place] [address]LCJ SerPl-mCncon 60-05-1903SUS [Mass/Vol]3.5 mg/dLHigh<0.9 [facility] CenterComment on above:Order Comment: Specimen Type: BLOOD SPECIMEN Ordering Facility: [facility] Address: [address] [place], [place] [address]Performed By: #### 60609-2 #### [facility] CLIA [id number] [address] [place], [place] [address]Tpgywdrh crosslinked C-telopeptide [Mass/Vol]on 05-23-2025 TELOPEPTIDE, BETA CROSS AMQMXL946 pg/qUFmcafi785-691QzddoifdmLakeHealth Beachwood Medical Center Comment on above:Order Comment: Specimen Type: BLOOD SPECIMEN [facility] Facility: [facility] Address: [address] [place], [place] [address]Performed By: #### 88413-6 #### [facility] CLIA [id number] [address] [place] [address] [place] OF AMERICARenal function 2000 panelon 19-26-2297Piyyrpu [Mass/Vol]4.0 g/dLNormal3.9-4.9CLakeHealth Beachwood Medical Center Comment on above:Order Comment: Specimen Type: BLOOD SPECIMEN Order[facility] Facility: [facility] Address: [address] [place], [place] [address]Performed By: #### 48581-6 #### [facility] CLIA [id number] [address] [place], [place] [address]Yaytm gap [Moles/Vol]12 mmol/LNormal8-15[facility] Va Medical CenterComment on above:Order Comment: Specimen Type: BLOOD SPECIMEN [facility] Facility: [facility] Address: [address] [place], [place] [address]Performed By: #### 65012-4 #### [facility] CLIA [id number] [address] [place], [place] [address]Ykuczsn [Mass/Vol]9.5 mg/dLNormal8.5-10.2CKettering Health Preble on above:Order Comment: Specimen Type: BLOOD SPECIMEN Ordering Facility: [facility] Address: [address] [place], [place] [address]Performed By: #### 24350-7 #### [facility] CLIA [id number] [address] [place], [place] [address]Tydagkbt [Moles/Vol]105 mmol/OLzzevl20-492NprjvhmdeThe [facility] Hospital on above:Order Comment: Specimen Type: BLOOD SPECIMEN Order[facility] Facility: [facility] Address: [address] [place], [place] [address]Performed By: #### 91755-4 #### [facility] CLIA [id number] [address] [place] [address] 20703PE5 [Moles/Vol]23 mmol/LIkjxxq95-10DmwplduwkTogus Va Medical Center Comment on above:Order Comment: Specimen Type: BLOOD SPECIMEN Order[facility] Facility: [facility] Address: [address] [place], [place] [address]Performed By: #### 91809-9 #### [facility] CLIA [id number] [address] [place] [address] 25247Uxeasjtslh [Mass/Vol]0.73 mg/dLNormal0.73-1.22[facility] on above:Order Comment: Specimen Type: BLOOD SPECIMEN Order[facility] Facility: [facility] Address: [address] [place], [place] [address]Performed By: #### 89530-5 #### [facility] CLIA [id number] [address] [place], [place] [address]Gttyfzjtna and Glomerular filtration rate.predicted panel (S/P/Bld)104 mL/min/1.73m???Normal>=60[facility] on above:Order Comment: Specimen Type: BLOOD SPECIMEN Order[facility] Facility: [facility] Address: [address] [place], [place] [address]Result Comment: Estimated Glomerular Filtration Rate (eGFR) is calculated using the 2020 CKD-EPI cre atinine equation. This equation utilizes serum creatinine, sex, and age as parameters. The creatinine assay has traceable calibration to isotope dilution- mass spectrometry. Refer to KDIGO guidelines for clinical interpretation. In patients with unstable renal function, e.g. those with acute kidney injury, the eGFR may not accurately reflect actual GFR.Performed By: #### 16183-7 #### [facility] CLIA [id number] [address] [place] [address]Rjmtuum [Mass/Vol]135 mg/jZHsfv83-36NaevftxmtTogus Va Medical Center Comment on above:Order Comment: Specimen Type: BLOOD SPECIMEN [facility] Facility: [facility] Address: [address] [place], [place] [address]Zszfrs Comment: The [place] Diabetes Association (ADA) provides guidance for cutoff [...] Standards of Medical Care in Diabetes 2016, [place] [employer] Association. Diabetes Care. 2016.39(Suppl 1).Performed By: #### 12291-4 #### [facility] CLIA [id number] [address] [place] [address]Bsgwndwuv [Mass/Vol]2.3 mg/dLLow2.7-4.8CLakeHealth Beachwood Medical CenterComment on above:Order Comment: Specimen Type: BLOOD SPECIMEN [facility] Facility: [facility] Address: [address] [place], [place] [address]Kxqsfqbyr By: #### 91277-9 #### [facility] CLIA [id number] [address] [place], [place] [address]Zxxewaral [Moles/Vol]4.2 mmol/LNormal3.7-5.1ClevelNovant Health Mint Hill Medical CenterComment on above:Order Comment: Specimen Type: BLOOD SPECIMEN [facility] Facility: [facility] Address: [address] [place] [address]Wxituqndo By: #### 96468-1 #### [facility] CLIA [id number] [address] [place], [place] [address]uk [Moles/Vol]140 mmol/KBqqzpv170-905RoddnqaidThe Jewish Hospital on above:Order Comment: Specimen Type: BLOOD SPECIMEN [facility] Facility[facility] Address: [address] [place] [address]Tihdrikne By: #### 47480-6 #### [facility] CLIA [id number] [address] [place], [place] [address]Qnum nitrogen [Mass/Vol]17 mg/dLNormal9-24[facility] on above:Order Comment: Specimen Type: BLOOD SPECIMEN [facility] Facility: [facility] Address: [address] [place] [address] 67[address]Gqvecfgmc By: #### 04111-5 #### [facility] CLIA [id number] [address] [place], [place] [address]Yfzvpvnekp Visit Summaryon 08-20-7156Lxarmmpkxo Visit Summary Ambulatory Visit Summary JAM TOSCANO [...] Appointments Follow Up with Ricky ROBLERO, SHAZIA Velasoc, MED When: In 3 months Where: [address] [place] [address], [address] [address] [phone] Medications What How Much When Instructions Unchanged atorvastatin (atorvastatin 20 mg Tab) 1 Tablets By Mouth Every day Contact prescribing physician if questions or concerns Unchanged cholecalciferol (cholecalciferol 5000 intl units oral capsule) By Mouth Every day Contactprescribing physician if questions or concerns Unchanged ezetimibe (Zetia 10 mg Tab) 1 Tablets By Mouth Every day Contact prescribing physician ifquestions or concerns Unchanged ferrous sulfate (ferrous sulfate [...] MEQ capsule) 0 Contact prescribing physician if questionsor concerns Unchanged multivitamin with minerals (Multivitamins and [...] PSA (prostate specific antigen) Ulcerative colitis, universal [place] ulcerative colitis Ureteral stone with hydronephrosis Urethral [...] signed up for this yet, please contact [employer] at [phone] to get signed up today. Language Information Language assist (more content not included)...[facility] Surgical Pathology Reporton 20-69-1386Ztoadjyt Pathology ReportAlbany - [address] [address]- Surgical Pathology Report Collected Date/Time: 05/11/2025 09:14 [...] characteristics were determined by the Laboratory [facility]. The (more content not included)...NormalAultman Orrville HospitalComment on above:Performed By: #### [id number] #### [facility] [address] [place], [place] [address]Hesk OR Intraoperative Recordon 99-26-4142Zdek OR Intraoperative RecordMain OR Intraoperative Record IntraOp Document Type FT Summary Primary Physician: Luis Antonio García MD Finalized Date/Time: 05/12/25 09:28:01 Pt. Name: JAM TOSCANO Angel /Sex: 1965 Male Med Rec #: [id number] Physician: Ricky ROBLERO, Luis Antonio Tiwari Financial #: [id number] Pt. Type: O Room/Bed: / Admit/Disch: 05/11/25 08:07:42 - 05/11/25 23:59:59 Institution: Case Times FT Entry 1 Patient Times In Room 05/11/25 09:02:00 Out Room 05/11/25 09:41:00 Procedure Times Start 05/11/25 09:07:00 Stop 05/11/25 09:38:00 Anesthesia Times Start 05/11/25 09:02:00 Stop 05/11/25 09:41:00 Time at [facility] 05/11/25 09:15:00 Last Modified By: Rodrigo RAMESH, Rosanna Amin 05/11/25 16:51:20 General Comments: EGD end time at 0909./MATEO,RN Colonoscopy start time at 0914./MATEO,RN Case Attendance FT Entry 1 Entry 2 Entry 3 Case Attendee Jeremi HERNÁNDEZ, Fatmata Wallace RN, Jennifer Flores Role Performed Anesthesiologist Product Safety And Standards Engineer - Primary Scrub - Primary Optical Technician Time In 05/11/25 09:02:00 05/11/25 09:02:00 05/11/25 [...] CRNA, Given Participants Rosanna Wallace RN, Jennifer Ellis Schafer CST, Ricky Sylvester MD, Luis Antonio Tiwari Time [...] and tissue Entry 1 Skin Integrity Intact, Alex, Warm, & Skin Abnormality No Dry Outcomes Met? Yes Last Modified By: Rodrigo RAMESH, (more content not included)...[facility] HospitalDischarge Instructionson 04-03-5255Rjrqunlts InstructionsDischarge Instructions ARNULFOJAM SCHUSTER Angel :1965 Visit Date:05/11/2025 [...] With: Ricky ROBLERO, Luis Antonio Tiwari Where: [facility] [address] [place] [address] [place] [address]- New Follow Up Appointments after Discharge Follow Up with Ricky ROBLERO, Luis Antonio Tiwari, [facility] When: Comments: office will call for follow up Where: [address], [address] [facility] [place] [address] [place] [address] [phone] Medications What How Much When Instructions Next [...] PSA (prostate specific antigen) Ulcerative colitis, universal [place] ulcerative colitis Ureteral stone with hydronephrosis Urethral [...] activities are safe for you. ??? Take fgjc-edc-jnmaygi and prescription medicines only as told by your health care provider. Contact (more content not included)...[facility] HospitalComment on above:Result Comment: Electronically Signed By: Jose RAMESH, Mary Lou\.br\Date and Time Signed: 05/11/25 09:53 EDTMain OR PACU I Recordon 26-35-6869Bfsr OR PACU I RecordMain OR PACU I Record PACU Phase I Document Type FT Summary Primary Physician: Luis Antonio García MD Finalized Date/Time: 05/11/25 10:51:19 Pt. Name: JAM TOSCANO/Sex: 1965 Male Med Rec #: [id number] Physician: Luis Antonio García MD Financial #: [id number] Pt. Type: O Room/Bed: / Admit/Disch: 05/11/25 [...] individualized perioperative plan of care The patient's rightto privacy is maintained The patient's value system, [...] with or improved from baseline levels established preoperativelyThe patient's cardiovascular status is consistent with or improved from baseline levels established preoperatively The patient's cardiovascular status is consistent with or improved from baseline levels established preoperatively The patient demonstrates and/or reports adequate pain control throughout the perioperative period The patient received appropriate medication(s), safely administered during the perioperativeperiod Acuity Level PACU I FT Entry 1 Start Time 05/11/25 09:42:00 Stop Time 05/11/25 10:12:00 Acuity Level Acuity Level I Last Modified By: Mary Lou Garcia RN 05/11/25 10:51:16 Finalized By: Mary Lou Garcia RN Document Signatures Signed By: Mary Lou Garcia RN 05/11/25 10:51NoMiami Valley HospitalMain OR Preoperative Recordon [id number] OR Preoperative RecordMain OR Preoperative Record Holding Area Document Type FT Summary Primary Physician: Luis Antonio García MD Finalized Date/Time: 05/11/25 08:28:46 Pt. Name: JAM TOSCANO/Sex: 1965 Male Med Rec #: [id number] Physician: Luis Antonio García MD Financial #: [id number] Pt. Type: O Room/Bed: / Admit/Disch: 05/11/25 [...] or her perioperative plan of care The patient'sright to privacy is maintained Surgery Checklist FT [...] Signed By: Obdulia Del Toro RN 05/11/25 08:28NormSt. Rita's HospitalNo Panel Informationon [id number] Study observation (narrative)[facility] K[facility] - left 1 or 2 Viewson [id number] Result: AP and lateral of left knee [...] dislocation. Impression: Unremarkable left total knee arthroplasty. [facility] [place] - right 1 or 2 Viewson [id number] Result: AP and lateral of right knee [...] dislocation. Impression: Unremarkable right total knee arthroplasty. [facility] [place] Hip - right 3 Viewson [id number] Result: AP and lateral of right hip showed acceptable position and alignment of right total hip arthroplasty. There was no evidence of loosening of the acetabular cup or femoral stem. Femoral head was well centered in the acetabular liner without evidence of asymmetric or accelerated wear. There was no gross evidence of fracture and/or dislocation. Impression: Unremarkable right total hip arthroplasty. [facility] (narrative)[facility] CenterCNOV [id number] Visit (ANGEL) JAM TOSCANO ([id number]) 1965 M Date Time Provider Department 02/14/25 7:20 AM DARRIAN DUBON During your visit today, we recorded the following information about you: Pulse Blood pressure Weight 66/minute 134/74 79 kg Darrian Dubon MD 02/20/2025 5:28 PM Signed FOLLOW UP VISIT Patient's Name: Jam Toscano [address] [place] [address] Dr [place] [address] PCP: Jose L Lackey MD [address] [facility] [place] [address] Consult Requested by: Jose L Lackey MD [address] [facility] [address] Other physicians: Online Marketing Coordinator prev. Nel Lebron MD (his prev. assurance analyst left- Ronald Brown MD) ; Now following [...] BRBPR and denies melena. He follows with Online Marketing Coordinator for his UC. States has scopes this summer by his assurance analyst. He is following with Orthopedics for his osteoarthroses and non-inflammatory joint pains. He has a chronic rotator cuff tear and extensive bilateral glenohumeral degenerative disease. His s/p b/l TKR and rt THR. Hissed rate was elevated at 79 04/2024 at time of his pneumonia. He continues on sulfasalazine and Entyvio by his assurance analyst. He does not describe RA related symptoms No jt pains or swelling outside of the LLE from TKR Denies rheum nodules No stiffness He is on sulfasalazine per assurance analyst for his UC and this has been controlling his RA He is pleased with his treatment regimen He also states that his IBD is well controlled, states told is in remission, on Entyvio Doing exercise and working with personal injury paralegal at the gym and will be going [...] in IBD and is following with local assurance analyst for that. Has been on Humira since Sep 2020 (started with 80 mg loading dose and since has been on 40 mg every 2 wks) He was pleased with Enbrel response to his RA and later was switched to Humira, reports has similar benefit and is pleased with response. His assurance analyst switched him to Humira for optimal mgt of IBD and he feels this has helped his IBD better. Reports still gets 8 BM's a day, does not have BM at night, does not have to wake up from sleep. Has been following with his assurance analyst for his UC Had colonoscopy 11/22/2021 with reported marked improvement in asc/transv/desc colon and severe active in rectum, histopath with active colitis with erosions. States Dr. Lebron has started him on rectal enemas. Recent colonoscopy with reported active colitis. He tells me that he continues to have multiple BM's; His assurance analyst prescribed pred. course, completed recently. No jt [...] us, he is on Humira per his Online Marketing Coordinator He is off Enbrel, was switched to Humira by his assurance analyst. (previously was on Enbrel 25 mg twice a wk and has been in remission since on Enbrel and very pleased with his treatment regimen) He is on Humira 40 mg every 2 wks by his Online Marketing Coordinator He is on sulfasalazine, Humira and mesalamine enemas per his assurance analyst I have reviewed benefits of a whole food plant based diet He consumes dairy, cheese, sausage, hamburger. I have advised him on avoiding meats and dairy and reviewed reports and patient experience with flare of IBD and RA, as well as gastrointestinal dysbiosis. (more content not included)...NormalTogus Va Medical CenterQuantiferon-TB Plus (Client Incubated)on [id number] interferon background IA Qn (Bld)0.09 International_Unit/mLInvalid Interpretation [facility] Comment on above:Performed By: #### [id number] #### [facility] [address] [place] [address]. tuberculosis stim IFN-g by CD4+ CD8+ T-cells corrected for background Qn (Bld)0.07 International_Unit/mLInvalid Interpretation CodeAultman Orrville HospitalComment on above:Performed By: #### [id number] #### [facility] [address] [place] [address]. tuberculosis stim IFN-g by CD4+ T-cells corrected for background Qn (Bld)0.07 International_Unit/mLInvalid Interpretation [facility] HospitalComment on above:Performed By: #### [id number] #### [facility] [address] [place] [address]. tuberculosis stim IFN-g Ql (Bld) [Interp]NegativeInvalid Interpretation CodeNegativeAultman Orrville HospitalComment on above:Result Comment: No response to M tuberculosis antigens [...] interferon gamma. Chemiluminescence immunoassay methodology Performed at: [employer] [id number] PhD Tarun OlivasPerformed By: #### [id number] #### [facility] [address] [place], [place] [address]Qecacmr stimulated gamma interferon corrected for background Qn (Bld)>10.00Invalid Interpretation CodeAultman Orrville HospitalComment on above:Performed By: #### [id number] #### [facility] [address] [place], [place] [address]Obpbaai comment (Unsp spec) [Interp]CommentInvalid Interpretation CodeAultman Orrville HospitalComment on above:Result Comment: QuantiFERON-TB Gold Plus is a qualitative indirect test for M tuberculosis infection (including disease) and is intended for use in conjunction with risk assessment, radiography, and other medical and diagnostic evaluations. The QuantiFERON-TB Gold Plus result is determined by subtracting the Nil value from either TB antigen (Ag) value. The Mitogen tube serves as a control for the test.Performed By: #### [id number] #### [facility] [address] [place], [place] [address]ESE Ab Scron [id number] M2 IgG Qn (S)<20.0Invalid Interpretation Code0.0-20.0[facility] HospitalComment on above:Result Comment: Negative 0.0 - 20.0 Equivocal 20.1 - 24.9 Positive >24.9 Mitochondrial (M2) Antibodies are found in 90-96% of patients with primary biliary cirrhosis. Performed at: [facility] [id number] PhD Tarun Billsformed By: #### [id number] #### [facility] [address] [place], [place] [address]Xhmztr Disease Comprehensiveon 50-88-9005Acswilrjwp IgA Ql (S) NegativeInvalid Interpretation CodeNegativeAultman Orrville HospitalComment on above:Performed By: #### [id number] #### [facility] [address] [place], [place] [address]Yknqoys peptide IgA Qn (S)5 unit(s)Invalid Interpretation Code 0-19[facility] HospitalComment on above:Result Comment: Negative 0 - 19 Weak Positive 20 - 30 Moderate to Strong Positive >30Performed By: #### [id number] #### [facility] [address] [place], [place] [address]Sezlqze peptide IgG Qn (S)2 unit(s)Invalid Interpretation Code 0-19[facility] HospitalComment on above:Result Comment: Negative 0 - 19 Weak Positive 20 - 30 Moderate to Strong Positive >30Performed By: #### [id number] #### [facility] [address] [place] [address]QcF [Mass/Vol]199 mg/dLInvalid Interpretation Kxpe89-963ByjbcvAultman Orrville HospitalComment on above:Result Comment: Performed at: [facility] [id number] PhD Tarun OlivasPerformed By: #### [id number] #### [facility] [address] [place], [place] [address]wLJ IgA Qn (S)<2Invalid Interpretation Code0-3FAdena Pike Medical CenterComment on above:Result Comment: Negative 0 - 3 Weak Positive 4 - 10 Positive >10 Tissue Transglutaminase (tTG) has been identified as the endomysial antigen. Studies have demonstr- ated that endomysial IgA antibodies have over 99% specificity for gluten sensitive enteropathy.Performed By: #### [id number] #### [facility] [address] [place], [place] [address]vDJ IgG Qn (S)6 unit/mLHigh0-5FAdena Pike Medical Center Comment on above:Result Comment: Negative 0 - 5 Weak Positive 6 - 9 Positive >9Performed By: #### [id number] #### [facility] [address] [place], [place] [address]Qzs Bs Abon [id number] surface Ab Ql (S)Non-ReactiveInvalid Interpretation CodeAultman Orrville HospitalComment on above:Result Comment: Non Reactive: Not immune to HBV infection. Equivocal: Unable to determine if anti-HBs is present at levels consistent with immunity. Reactive: Anti-HBs concentration detected at greater than 10 mIU/mL. Individual is considered to be immune to infection with HBV. Performed at: [address] [id number] PhD Tarun Billsformed By: #### [id number] #### [facility] [address] [place], [place] [address]Sew Bs Agon 01-13-9184KBC surface Ag IA QlNegativeInvalid Interpretation CodeNegativeFisher Meritus Medical CenterComment on above:Result Comment: Performed at: [address] [id number] PhD Tarun Billsformed By: #### [id number] #### [facility] [address] [place], [place] [address]Iwlcxlknax Visit Summaryon [id number] Visit Summary Ambulatory Visit Summary RIMMA JAM Barcenas :1965 Visit Date:12/14/2024 Ambulatory Visit Instructions Your [...] With: Ricky ROBLERO, Luis Antonio Tiwari Where: [facility] [address] [place] [address]- You Need to Complete the Following C-Reactive Protein, Blood, Routine collect, 12/14/24, Order for future visit, Lab Collect, Ulcerative colitis, universal, Print Label By Order Location CBC w/ Auto Diff, Blood, Routine collect, 12/14/24, Order for future visit, Lab Collect, Ulcerativecolitis, universal, Print Label By Order Location Comprehensive Metabolic Panel, Blood, Routine collect, 12/14/24, Order for future visit, Lab Collect, Ulcerative colitis, universal, Print Label By Order Location Hepatitis B Surface Antibody, Blood, Routine collect, 12/14/24, Order for future visit, Lab Collect, Ulcerative colitis, universal, Print Label By Order Location Hepatitis B Surface Antigen, Blood, Routine collect, 12/14/24, Order for future visit, Lab Collect,Ulcerative colitis, universal, Print Label By Order Location [...] units oral capsule) By Mouth Every day Contactprescribing physician if questions or concerns Unchanged ezetimibe (Zetia 10 mg Tab) 1 Tablets By Mouth Every day Contact prescribing physician ifquestions or concerns Unchanged folic acid (folic acid [...] PSA (prostate specific antigen) Ulcerative colitis, universal [place] ulcerative colitis Ureteral stone with hydronephrosis Urethral stone Historical - Any problem that you are no longer receiving treatment for. Extreme obesity Ulcerative colitis Patient Survey You may receive a survey via text or e-mail asking about your office visit. Please share your experience with us by completing your survey. We appreciate your feedback and thank you for choosing us for your care. NormalAultman Orrville HospitalCB w/ Auto Diffon 12-14-2024 Basophils/100 WBC (Bld)0.5 %Normal0.0-2.0[facility] HospitalComment on above:Performed By: #### [id number] #### [facility] [address] [place] [address]Gwfwebvge/Leukocytes Auto (Bld) [Pure # fraction]0.0 E9/LNormal 0.0-0.2Fisher [facility]itus Medical CenterComment on above:Performed By: #### [id number] #### [facility] [address] [place], [place] [address]Khmlmtallro (Bld) [#/Vol]0.0 E9/LNormal0.0-0.5Fisher [facility]itus Medical CenterComment on above:Performed By: #### [id number] #### [facility] [address] [place], [place] [address]Oujnhnkmipx/100 WBC (Bld)0.0 %Normal0.0-8.0[facility] HospitalComment on above:Performed By: #### [id number] #### [facility] [address] [place], [place] [address]Dxsoqjuyujc distribution width (RBC) [Ratio]15.6 %High10.9-14.2 [facility]rville HospitalComment on above:Performed By: #### [id number] #### [facility] [address] [place] [address]Dkrooghqqs (Bld) [Volume fraction]36.2 %Low37.7-49.0[facility] Orrville HospitalComment on above:Performed By: #### [id number] #### [facility] [address] [place] [address]Aolrfvkwcy (Bld) [Mass/Vol]12.6 g/dLLow13.5-17.5FAdena Pike Medical CenterComment on above:Performed By: #### [id number] #### [facility] [address] [place] [address]Sxaizgmtrih (Bld) [#/Vol]1.6 E9/LNormal1.0-4.0[facility] HospitalComment on above:Performed By: #### [id number] #### [facility] [address] [place] [address]Wlnwlhtftcu/100 WBC (Bld)24.8 %Zyoctl68.0-50.0[facility]ville HospitalComment on above:Performed By: #### [id number] #### [facility] [address] [place] [address]CUL (RBC) [Entitic mass]31.7 flHkxmgc17.0-34.0[facility] HospitalComment on above:Performed By: #### [id number] #### [facility] [address] [place] [address]GWMH (RBC) [Mass/Vol]34.9 g/wGFnrxqu10.4-36.0[facility] HospitalComment on above:Performed By: #### [id number] #### [facility] [address] [place] [address]SER (RBC) [Entitic vol]90.8 cJJtppnr90.0-100.0[facility] HospitalComment on above:Performed By: #### [id number] #### [facility] [address] [place] [address]Oivyuqgsz (Bld) [#/Vol]0.5 E9/LNormal0.2-1.0[facility] HospitalComment on above:Performed By: #### [id number] #### [facility] [address] [place] [address]Noofksfrmgm (Bld) [#/Vol]4.4 E9/LNormal2.0-7.5FAdena Pike Medical CenterComment on above:Performed By: #### [id number] #### [facility] [address] [place] [address]Djtwykraxck/100 WBC (Bld)67.2 %Mgpjjs13.0-75.0[facility] HospitalComment on above:Performed By: #### [id number] #### [facility] [address] [place] [address]Hlvaxjgo505.0 E9/LHvdbct436.0-500.0[facility] Comment on above:Performed By: #### [id number] #### [facility] [address] [place] [address]Tsakzwto mean volume (Bld) [Entitic vol]6.9 fLNormal6.4-10.8 [facility]ville HospitalComment on above:Performed By: #### [id number] #### [facility] [address] [place] [address]KYT (Bld) [#/Vol]4.0 E12/LLow4.3-5.9[facility] Comment on above:Performed By: #### [id number] #### [facility] [address] [place] [address]EBH corrected for nucl RBC Auto (Bld) [#/Vol]6.6 E9/LNormal 4.0-11.0[facility]rville HospitalComment on above:Performed By: #### [id number] #### [facility] [address] [place], [place] [address]ELAzp 20-47-4822Huxixkt [Mass/Vol]4.1 g/dLNormal3.3-5.0[facility] HospitalComment on above:Performed By: #### [id number] #### [facility] [address] [place], [place] [address]Nhhhmjk/Globulin (S) [Mass conc ratio]1.0Kvcyqj4.1-2.2FAdena Pike Medical CenterComment on above:Performed By: #### [id number] #### [facility] [address] [place] [address]NHE [Catalytic activity/Vol]88 Int._Unit/ZSiolhy53-85BfipzsAultman Orrville HospitalComment on above:Performed By: #### [id number] #### [facility] [address] [place] [address]IXV No additional P-5'-P [Catalytic activity/Vol]27 Int._Unit/L Normal6-46[facility] Orrville HospitalComment on above:Performed By: #### [id number] #### [facility] [address] [place] [address]Dlpya gap [Moles/Vol]9 mmol/LNormal6-16[facility]rville HospitalComment on above:Performed By: #### [id number] #### [facility] [address] [place], [place] [address]KWU [Catalytic activity/Vol]29 Int._Unit/LNormal5-43[facility] HospitalComment on above:Performed By: #### [id number] #### [facility] [address] [place] [address]Axntcluxp [Mass/Vol]0.4 mg/dLNormal0.0-1.1FAdena Pike Medical CenterComment on above:Performed By: #### [id number] #### [facility] [address] [place], [place] [address]Zyhfapj [Mass/Vol]9.1 mg/dLNormal8.9-11.1FAdena Pike Medical CenterComment on above:Performed By: #### [id number] #### [facility] [address] [place], [place] [address]Ktieuikb [Moles/Vol]108 mmol/LPbtdll538-869RwjoumAultman Orrville HospitalComment on above:Performed By: #### [id number] #### [facility] [address] [place], [place] [address]SE1 [Moles/Vol]27 mmol/UFklhau00-74CysjoyAultman Orrville Hospital Comment on above:Performed By: #### [id number] #### [facility] [address] [place], [place] [address]Gxrsyqyqgz [Mass/Vol]0.8 mg/dLNormal0.5-1.3FAdena Pike Medical CenterComment on above:Performed By: #### [id number] #### [facility] [address] [place], [place] [address]Vcowdvsy (S) [Mass/Vol]2.8 g/dLNormal1.4-4.0[facility] HospitalComment on above:Performed By: #### [id number] #### [facility] [address] [place], [place] [address]Nqadmtf [Mass/Vol]94 mg/nUQcagvx26-373YhzjxdAultman Orrville HospitalComment on above:Performed By: #### [id number] #### [facility] [address] [place], [place] [address]Eyxkgworc [Moles/Vol]4.7 mmol/LNormal3.5-5.3FAdena Pike Medical CenterComment on above:Performed By: #### [id number] #### [facility] [address] [place], [place] [address]Hkdltpy [Mass/Vol]6.9 g/dLNormal6.0-7.8[facility] HospitalComment on above:Performed By: #### [id number] #### [facility] [address] [place], [place] [address]Suvuhe [Moles/Vol]139 mmol/OOgskrt994-812AbcueyAultman Orrville HospitalComment on above:Performed By: #### [id number] #### [facility] [address] [place], [place] [address]Whud nitrogen [Mass/Vol]16 mg/dLNormal5-21[facility]rville HospitalComment on above:Performed By: #### [id number] #### [facility] [address] [place], [place] [address]Yuue nitrogen/Creatinine [Mass ratio]20 No LsnakPyqbsh54-54 [facility] HospitalComment on above:Performed By: #### [id number] #### [facility] [address] [place], [place] [address]SWLcb 44-69-4787AQK [Mass/Vol]0.2 mg/dLNormal<=1.9[facility]rville HospitalComment on above:Performed By: #### [id number] #### [facility] [address] [place], [place] [address]Dpzbjghxitzjiaos Office/Clinic Noteon 12-14-2024 Gastroenterology Office/Clinic NoteGastroenterology Office/Clinic Note Chief Complaint 6 month follow up HPI Staff Established patient is a(n) 59 year old male who presents today for a(n) 6 month follow up. Approved for Entyvio pens q2 weeks - serviced through [facility]. Effective? Yes Any frequency, urgency, abdominal pain, n/v, bloody or mucus stools? No Any blood thinners? no Any GLP-1 agonists? no Last visit 06/13/24 w/Dr. García: Assessment/Plan 1. [place] ulcerative colitis (K51.00: Ulcerative (chronic) pancolitis without [...] switched to sulfasalazine. We added Humira in 2018.We increased his Humira Started Entyvio: 03/2023: q8 weeks Repeat colonoscopy with Dr. Chambers May 2024 showed no tubular adenomas just hyperplastic polyps, no evidence of endoscopic inflammation, Morales score 0 We discussed having tubular adenoma polyps in the transverse colon and rectum and tubovillous polypin the transverse colon was high risk of UC, repeat colonoscopy in May did not show dysplasia or tubular adenomas, but he remains at high risk, if he is interested we can always refer to IBD specialist for next colonoscopy, he prefers to stay at [facility] He has also RA, no specific therapy for now, follows with Dr. Valente at [facility] We discussed that having this lesion in [...] (03/02/24) Total Protein: 7 (more content not included)...NormalAultman Orrville Hospital Comment on above:Result Comment: Electronically Signed By: Ricky ROBLERO, Luis Antonio Tiwari\.br\Date and Time Signed: 12/14/24 08:52 ESTeGFRon 44-59-0048uAUH102 mL/min/1.73 r3Yftsuk>=59A[facility] Orrville HospitalComment on above:Performed By: #### [id number] #### [facility] [address] [place], [place] [address]Ggeomjiidl Visit Summaryon 52-28-8202Zprwkiwrzq Visit Summary Ambulatory Visit Summary RIMMA JAM Barcenas :1965 Visit Date:11/21/2024 Ambulatory Visit Instructions Your [...] With: Ricky ROBLERO, Luis Antonio Tiwari Where: [facility] [address] Suite [facility] [address] [address]- You Need to Schedule the Following Appointments Follow Up with DARRELL ROBLERO, LOREE Bunch When: Where: [facility] [address], [place] [address]- Medications What How Much When Instructions Unchanged atorvastatin (atorvastatin 20 mg Tab) 1 Tablets By Mouth Every day Contact prescribing physician if questions or concerns Unchanged cholecalciferol (cholecalciferol 5000 intl units oral capsule) By Mouth Every day Contactprescribing physician if questions or concerns Unchanged ezetimibe (Zetia 10 mg Tab) 1 Tablets By Mouth Every day Contact prescribing physician ifquestions or concerns Unchanged folic acid (folic acid [...] PSA (prostate specific antigen) Ulcerative colitis, universal [place] ulcerative colitis Ureteral stone with hydronephrosis Urethral [...] to develop. What are (more content not included)...[facility] HospitalCNPNon [id number] (DESTINYULN) JAM TOSCANO ([id number]) 1965 M Date Time Provider Department 11/21/24 [...] toe 3 days ago. 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 Denies any change in color [...] apt with me or any rheum ANGÉLICA (MAGNETIC TAPE TYPEWRITER OPERATOR or PA) who has opening soon. thank you kindly, Estephania Lara LPN 11/23/2024 8:01 AM Signed Please offer appt with Dr Dubon or MAGNETIC TAPE TYPEWRITER OPERATOR, if patient still interested. Jordyn Roberson [...] daily. - atorvastatin (LIPITOR (more content not included)...NormalZanesville City Hospital ClevelandPSA Totalon 08-30-0417Aeitofnp specific Ag [Mass/Vol]3.3 ng/mLNormal 0.1-3.5Fisher [facility] Medical CenterComment on above:Result Comment: The concentration of PSA determined by different manufacturers can vary due to diffe rences in assay methods and reagent specificity. Values obtained from different assay methods cannot be used interchangeably. The methodology used for this result was chemiluminescence using [email or web address] Access [employer] PSA reagent.Performed By: #### [id number] #### [facility] [address] [place], [place] [address]QAYEnl [id number] Visit (ANGEL) JAM TOSCANO ([id number]) 1965 M Date Time Provider Department 10/05/24 7:20 AM DARRIAN DUBON During your visit today, we recorded the following information about you: Pulse Blood pressure Weight 66/minute 128/76 77.7 kg Darrian Dubon MD 10/16/2024 7:47 PM Signed FOLLOW UP VISIT Patient's Name: Jam Toscano Melissa Rip [facility] [address] PCP: JoseL Lackey MD [address] [place] [phone] Consult Requested by: Jose L Lackey MD [address] [place] [id number] Other physicians: Online Marketing Coordinator prev. Nel Lebron MD (his prev. assurance analyst left- Ronald Brown MD) ; Now following [...] No stiffness He is on sulfasalazine per assurance analyst for his UC and this has been controlling his RA He is pleased with his treatment regimen He also states that his IBD is well controlled, states told is in remission, on Entyvio Doing exercise and working with personal injury paralegal at the gym and will be going [...] in IBD and is following with local assurance analyst for that. Has been on Humira since Sep 2020 (started with 80 mg loading dose and since has been on 40 mg every 2 wks) He was pleased with Enbrel response to his RA and later was switched to Humira, reports has similar benefit and is pleased with response. His assurance analyst switched him to Humira for optimal mgt of IBD and he feels this has helped his IBD better. Reports still gets 8 BM's a day, does not have BM at night, does not have to wake up from sleep. Has been following with his assurance analyst for his UC Had colonoscopy 11/22/2021 with reported marked improvement in asc/transv/desc colon and severe active in rectum, histopath with active colitis with erosions. States Dr. Lebron has started him on rectal enemas. Recent colonoscopy with reported active colitis. He tells me that he continues to have multiple BM's; His assurance analyst prescribed pred. course, completed recently. No jt [...] us, he is on Humira per his Online Marketing Coordinator He is off Enbrel, was switched to Humira by his assurance analyst. (previously was on Enbrel 25 mg twice a wk and has been in remission since on Enbrel and very pleased with his treatment regimen) He is on Humira 40 mg every 2 wks by his Online Marketing Coordinator He is on sulfasalazine, Humira and mesalamine enemas per his assurance analyst I have reviewed benefits of a whole food plant based diet He consumes dairy, cheese, sausage, hamburger. I have advised him on avoiding meats and dairy and reviewed reports and patient experience with flare of IBD and RA, as well as gastrointestinal dysbiosis. I advised him on a whole foods plant based diet. 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 Specimen is entirely submitted in one cassette. B: Received in formalin labeled with patient name, number, and cecal polyp is an elongated fragment of concepcion/pink tissue measuring 1 x 0.3 x 0.1 cm in greatest dimension. Multiple yellow fecal materials measuring up to less than 0.1 cm are present. Specimen is entirely submitted in one cassette. Surgical Pathology Report Collected Date/Time: 06/03/2024 10:08 EDT Pathologist: Rodger Hills MD Received Date/Time: 06/03/2024 12:20 EDT Gisele ROBLERO, Asim Sanford MD Gross Description C: Received in formalin labeled with patient name, number, and transverse colon polyp is a single fragment of concepcion/pink tissue measuring 0.5 x 0.3 x 0.1 cm. Specimen is entirely submitted in one cassette. D: Received in formalin labeled with patient name, number, and descending colon polyps are two fragments of concepcion/pink tissue measuring 0.3 and 1.2 cm in greatest dimension. The specimen is entirely submitted in one cassette. E: Received in formalin labeled with patient name, number, and rectal polyp is a single concepcion/pink polyp measuring 0.9 x 0.6 x 0.2 cm. The specimen is entirely submitted in one cassette. (DC) DC:[facility] Microscopic Description A-E: Microscopic examination performed unless gross only specified. The use of one or more reagents in the above tests is regulated as an analyte specific reagent (ASR). The test or tests are ordered following initial H&E microscopic examination. The performance characteristics were determined by the [facility] of [facility]. They have not been cleared or approved by the US Food and Drug Administration. The FDA has determined that such clearance or approval is not necessary. These tests are used for clinical purposes. They should not be regarded as investigational or for research. Appropriate positive and negative controls are performed and are acceptable. [facility] Tiffin HospitalComment on above:Performed By: #### [id number] #### [facility] [address] [place], [place] [address]PC Hand - bilateral PA and Lateral and Obliqueon 03-14-2024 IMPRESSION: Severe changes of chronic inflammatory arthritis, similar to prior. Left hand metallic foreign body. Fur Stretcher: CODY Transcribe Date/Time: Mar 14 2024 1:31P Dictated by : HORACIO DAWSON MD This examination was interpreted and the report reviewed and electronically signed by: HORACIO DAWSON MD on Mar 14 2024 5:53PM [facility] DIVISION OF RADIOLOGY* * *Final Report* * * DATE OF [...] the level of the MCPs. DIVISION OF RADIOLOGYProvider, [facility] - 03/14/2024 * * *Final Report* * [...] to prior. Left hand metallic foreign body. Fur Stretcher: CODY Transcribe Date/Time: Mar 14 2024 1:31P Dictated by : HORACIO DAWSON MD This examination was interpreted and the report reviewed and electronically signed by: HORACIO DAWSON MD on Mar 14 2024 5:53PM [facility] CenterRadiology Study observation (narrative)[facility] HospitalXR Hand - bilateral PA and Lateral and ObliqueOrdered By: Ccf Provider on 03-14-2024 [facility] City HospitalLIPID PROFILEon [id number] RATIO NORMSEE BELOWMercy Health St. Elizabeth Youngstown HospitalComment on above:Result Comment: 3.3 - 4.4 LOW RISK 4.4 - 7.1 AVERAGE RISK 7.1 - 11.0 MODERATE RISK >11.0 HIGH RISKPerformed By: #### LIPID, LIVER #### [facility] [address] [address] [address] Rj MillerCholesterol [Mass/Vol]99 mg/dLNormal<=200[facility] Comment on above:Performed By: #### LIPID, LIVER #### [facility] [address] [address] [address] Rj Sheikhesterol in HDL [Mass/Vol]44 mg/nWOrvuxw70-26WxjTrumbull Regional Medical CenterComment on above:Performed By: #### LIPID, LIVER #### [facility] [address] [address] [address] Rj MillerCholesterol in LDL [Mass/Vol]45.4 mg/dLMercy Health St. Elizabeth Youngstown HospitalComment on above:Performed By: #### LIPID, LIVER #### [facility] [address] [place] [address] Dr. Rj MillerCholesterol.total/Cholesterol in HDL [Mass ratio]2.3 {ratio} NormalTrumbull Regional Medical CenterComment on above:Performed By: #### LIPID, LIVER #### [facility] [address] [place] [address] Dr. Rj Johnson NORMAL> or = 60 mg/dl - LOW CARDIOVASCULAR RISK <40 mg/dl - HIGH CARDIOVASCULAR RISKMercy Health St. Elizabeth Youngstown HospitalComment on above:Performed By: #### LIPID, LIVER #### [facility] [address] [place] [address] Dr. Rj MillerLDL CALC NORMALSEE BELOWMercy Health St. Elizabeth Youngstown HospitalComment on above:Result Comment: <100 mg/dl OPTIMAL 100 - 129 mg/dl NEAR OR ABOVE OPTIMAL 130 - 159 mg/dl BORDERLINE HIGH 160 - 189 mg/dl HIGH >190 mg/dl VERY HIGH Performed By: #### LIPID, LIVER #### [facility] [address] [place] [address] Dr. Rj MillerTriglyceride [Mass/Vol]48 mg/dLNormal<=150[facility] Comment on above:Performed By: #### LIPID, LIVER #### [facility] [address] [place] [address] Dr. Rj Last CALC9.6 mg/dLNoLouis Stokes Cleveland VA Medical CenterComment on above: Performed By: #### LIPID, LIVER #### [facility] [address] [place] [address] Dr. Rj Wallace PROFILEon [id number] [Mass/Vol]3.7 g/dLNormal3.4-5.0 The Parkview HealthComment on above:Performed By: #### LIPID, LIVER #### [facility] [address] [place] [address] Dr. Rj MillerAlbumin/Globulin [Mass ratio]1.0 {ratio}NormalThe Parkview HealthComment on above:Performed By: #### LIPID, LIVER #### [facility] [address] [place] [address] Dr. Rj Back [Catalytic activity/Vol]210 U/LCritically ibtr73-909Yqf [facility] HealthComment on above:Performed By: #### LIPID, LIVER #### [facility] [address] [address] [address] Rj Umaña [Catalytic activity/Vol]50 U/VWngike68-82Wsd [facility] HealthComment on above:Performed By: #### LIPID, LIVER #### [facility] [address] [address] [address] Rj MillerAST [Catalytic activity/Vol]42 U/LCritically pald61-46Jee [facility] HealthComment on above:Performed By: #### LIPID, LIVER #### [facility] [address] [place] [address] Dr. Rj Garcia, CONJUGATED0.1 mg/dLNormal0.0-0.2The [facility] Comment on above:Performed By: #### LIPID, LIVER #### [facility] [address] [place] [address] Dr. Rj Carrionirubin [Mass/Vol]0.3 mg/dLNormal0.2-1.0The [facility] Comment on above:Performed By: #### LIPID, LIVER #### [facility] [address] [place] [address] Dr. Rj MlilerGlobulin (S) [Mass/Vol]3.7 g/dLNormalThe [facility] HealthComment on above:Performed By: #### LIPID, LIVER #### [facility] [address] [place] [address] Dr. Rj MillerProtein [Mass/Vol]7.4 g/dLNormal6.4-8.2The [facility] Comment on above:Performed By: #### LIPID, LIVER #### [facility] [address] [place] [address] Dr. Rj MillreQxedv36-haongeefbptyba D3 [Mass/Vol]on 99-27-8818Lrbffjd D 25 OH40.2 ng/mL30 - 100 ng/mLCleveland ClinicMRI LSPINE WO CONon [id number] LSPINE WO CONEXAMINATION: MRI LSPINE WO CON HISTORY: Low back pain COMPARISON: [...] complex. No central or foraminal stenosis IMPRESSION: Vqaz-cg-uhrdfdhz degenerative changes resulting in mild left L2-L3 and mild right L3-L4 foraminal stenosis Electronically authenticated by: KALEIGH CANTOR Date: 2022-11-24 11:[address] [place], [place] [id number] LSPINE MIN 4 VIEWSon [id number] LSPINE MIN 4 VIEWS EXAMINATION: XR LSPINE [...] Electronically authenticated by: JENNY TAPIA Date: 2022-11-07 11:13[facility] HospitalDXA-AXIAL SKELETONon [id number] T-SCORE-2.5Cleveland ClinicCBC AUTO DIFFon [id number] #0.0 103/ulNormal0.0-0.1[facility] Medical CenterComment on above:Performed By: #### CBC #### [facility] [address] [address] [address] Rj MillerBasophils/100 WBC (Bld)0.5 %Normal0.2-2.0[facility] Comment on above:Performed By: #### CBC #### [facility] [address] [address] [address] Rj Maki #0.2 103/ulNormal0.0-0.7The [facility] HealthComment on above: Performed By: #### CBC #### [facility] [address] [address] [address] Rj Barriososinophils/100 WBC (Bld)1.8 %Normal0.9-7.0[facility] Comment on above:Performed By: #### CBC #### [facility] [address] [address] [address] Rj Barriosrythrocyte distribution width (RBC) [Ratio]13.6 %Vrsvau99.0-15.0 [facility] Medical CenterComment on above:Performed By: #### CBC #### [facility] [address] [address] [address] Rj MillerHematocrit (Bld) [Volume fraction]41.3 %Critically low42.0-54.0 [facility] Medical CenterComment on above:Performed By: #### CBC #### [facility] [address] [address] [address] Rj MillerHemoglobin (Bld) [Mass/Vol]14.1 g/cQUqgpyq20.0-18.0The [facility] HealthComment on above:Performed By: #### CBC #### [facility] [address] [place] [address] Dr. Rj Burks #0.02 10e3/ulNormal0.00-0.03The [facility] HealthComment on above:Performed By: #### CBC #### [facility] [address] [place] [address] Dr. Rj Burks %0.2 %Normal0.0-0.5The [facility] HealthComment on above: Performed By: #### CBC #### [facility] [address] [place] [address] Dr. Rj Jaffe #2.4 103/ulNormal1.2-3.8The [facility] HealthComment on above:Performed By: #### CBC #### [facility] [address] [place] [address] Dr. Rj Khanhocytes/100 WBC (Bld)29.5 %Sysyuh76.5-60.0The [facility] HealthComment on above:Performed By: #### CBC #### [facility] [address] [place] [address] Dr. Rj Nugent DIFF REQNONormalThe [facility] HealthComment on above: Performed By: #### CBC #### [facility] [address] [place] [address] Dr. Rj Mahmood (RBC) [Entitic mass]31.1 lfAnfvvw96.9-34.0The [facility] HealthComment on above:Performed By: #### CBC #### [facility] [address] [place] [address] Dr. Rj Mahmood (RBC) [Mass/Vol]34.1 g/jPXgdvli72.9-35.2The [facility] HealthComment on above:Performed By: #### CBC #### [facility] [address] [place] [address] Dr. Rj Mahmood (RBC) [Entitic vol]91.0 mBWcjjfb17.0-94.0The [facility] HealthComment on above:Performed By: #### CBC #### [facility] [address] [place] [address] Dr. Rj Bales #0.7 103/ulNormal0.3-0.8The [facility] HospitalComment on above:Performed By: #### CBC #### [facility] [address] [place] [address] Dr. Rj Bermanocytes/100 WBC (Bld)8.3 %Normal1.7-12.0The [facility] Comment on above:Performed By: #### CBC #### [facility] [address] [place] [address] Dr. Rj Greene #4.9 103/ulNormal1.4-6.5The [facility] HealthComment on above:Performed By: #### CBC #### [facility] [address] [place] [address] Dr. Rj Teeutrophils/100 WBC (Bld)59.7 %Vngrno61.0-75.0The [facility] HealthComment on above:Performed By: #### CBC #### [facility] [address] [place] [address] Dr. Rj Avery mean volume (Bld) [Entitic vol]8.8 fLCritically low 9.5-13.5The [facility] HealthComment on above:Performed By: #### CBC #### [facility] [address] [place] [address] Dr. Rj SolisT288 103/kpAuwpvm312-493Wkf [facility] HealthComment on above: Performed By: #### CBC #### [facility] [address] [place] [address] Dr. Rj GallegosC4.54 106/ulCritically low4.70-6.10The [facility] HealthComment on above:Performed By: #### CBC #### [facility] [address] [place] [address] Dr. Rj MunozBC8.2 103/ulNormal4.0-11.0The [facility] HealthComment on above: Performed By: #### CBC #### [facility] [address] [place] [address] Dr. Rj MillerCovid-19 PCR (CVDTB)on 24-76-0357NKZU-CoV-2 (COVID-19) RNA BERNARDO+probe Ql (Unsp spec)Not detectedNormalNOT DETECTEDThe [facility] Comment on above:Result Comment: When diagnostic testing is negative, the [...] for this test is supported by the [place] of Health and Human Service's declaration that circumstances exist to justify the emergency use of in vitro diagnostics for the detection and/or diagnosis of the virus that causes COVID-19. This EUA will remain in effect for the duration of the COVID-19 declaration justifying emergency of IVDs, unless it is terminated or revoked by the FDA (after which the test may no longer be used).Performed By: #### CVDTBH #### [facility] [address] [place] [address] Dr. Rj MillerLIPASEon 26-99-9618Idczyu [Catalytic activity/Vol]17.0 U/L Critically low73.0-393.0The [facility] HealthComment on above:Performed By: #### CMP, LIPA, HSTROPN #### [facility] [address] [place] [address] Dr. Rj MillerPROF 14(COMP METB)on 10-20-2705Kfwhzyh [Mass/Vol]3.8 g/dLNormal 3.4-5.0The [facility] HealthComment on above:Performed By: #### CMP, LIPA, HSTROPN #### [facility] [address] [place] [address] Dr. Rj MillerAlbumin/Globulin [Mass ratio]1.0 {ratio}NormalThe [facility] HealthComment on above:Performed By: #### CMP, LIPA, HSTROPN #### [facility] [address] [address] [address] Rj CabreraP [Catalytic activity/Vol]180 U/LCritically tytb44-985Nzo [facility] HealthComment on above:Performed By: #### CMP, LIPA, HSTROPN #### [facility] [address] [place] [address] Dr. Rj CabreraT [Catalytic activity/Vol]38 U/RLrzkjd31-34Cud [facility] HealthComment on above:Performed By: #### CMP, LIPA, HSTROPN #### [facility] [address] [place] [address] Dr. Rj MillerAnion gap [Moles/Vol]8.7 mmol/LNormalThe [facility] HealthComment on above:Performed By: #### CMP, LIPA, HSTROPN #### [facility] [address] [place] [address] Dr. Rj MillerAST [Catalytic activity/Vol]28 U/HKyuxhp38-26Muk [facility] HealthComment on above:Performed By: #### CMP, LIPA, HSTROPN #### [facility] [address] [place] [address] Dr. Rj MillerBilirubin [Mass/Vol]0.4 mg/dLNormal0.2-1.0The [facility] Comment on above:Performed By: #### CMP, LIPA, HSTROPN #### [facility] [address] [place] [address] Dr. Rj MillerCalcium [Mass/Vol]8.9 mg/dLNormal8.5-10.1The [facility] Comment on above:Performed By: #### CMP, LIPA, HSTROPN #### [facility] [address] [place] [address] Dr. Rj MillerChloride [Moles/Vol]103 mmol/ZGltjtv78-594Olb [facility] Comment on above:Performed By: #### CMP, LIPA, HSTROPN #### [facility] [address] [place] [address] Dr. Rj MillerCO2 [Moles/Vol]26.0 mmol/SSvgriu75.0-32.0The [facility] Comment on above:Performed By: #### CMP, LIPA, HSTROPN #### [facility] [address] [place] [address] Dr. Rj MillerCreatinine [Mass/Vol]0.88 mg/dLNormal0.70-1.30The [facility] HealthComment on above:Performed By: #### CMP, LIPA, HSTROPN #### [facility] [address] [place] [address] Dr. Rj BarriosGFR-AF TOGOLESE>60Normal>=60The [facility] HealthComment on above:Performed By: #### CMP, LIPA, HSTROPN #### [facility] [address] [place] [address] Dr. Rj BarriosGFR-NON AF TOGOLESE>60Normal>=60The [facility] HealthComment on above:Performed By: #### CMP, LIPA, HSTROPN #### [facility] [address] [place] [address] Dr. Rj MillerGlobulin (S) [Mass/Vol]3.8 g/dLNormalThe [facility] HealthComment on above:Performed By: #### CMP, LIPA, HSTROPN #### [facility] [address] [place] [address] Dr. Rj MillerGlucose [Mass/Vol]116 mg/dLCritically fesi50-904Jla [facility] HealthComment on above:Performed By: #### CMP, LIPA, HSTROPN #### [facility] [address] [place] [address] Dr. Rj MillerPotassium [Moles/Vol]3.7 mmol/LNormal3.5-5.1The [facility] Comment on above:Performed By: #### CMP, LIPA, HSTROPN #### [facility] [address] [address] [address] Rj MillerProtein [Mass/Vol]7.6 g/dLNormal6.4-8.2The [facility] Comment on above:Performed By: #### CMP, LIPA, HSTROPN #### [facility] [address] [place] [address] Dr. Rj MillerSodium [Moles/Vol]134 mmol/LCritically lwx401-397Rac [facility] HealthComment on above:Performed By: #### CMP, LIPA, HSTROPN #### [facility] [address] [place] [address] Dr. Rj MillerUrea nitrogen [Mass/Vol]13.0 mg/dLNormal7.0-18.0The [facility] HealthComment on above:Performed By: #### CMP, LIPA, HSTROPN #### [facility] [address] [place] [address] Dr. Rj Schulz nitrogen/Creatinine [Mass ratio]14.8 mg/mgNormalThe [facility] HealthComment on above:Performed By: #### CMP, LIPA, HSTROPN #### [facility] [address] [place] [address] Dr. Rj Low, HIGH SENSITIVITYon 98-75-5852BMSVJB87.1 pg/mLNormal 4.0-76.1The [facility] HealthComment on above:Result Comment: CUT-OFF POINTS HAVE BEEN ESTABLISHED BASED ON THE FOURTH UNIVERSAL DEFINITIONS OF MYOCARDIAL INFARCTION. THE UPPER REFERENCE LIMIT (URL) OF TROPONIN, DEFINED THE 99TH PERCENTILE OF cTnI DISTRIBUTION IN A REFERENCE POPULATION, HAS BEEN CONFIRMED THE DECISION THRESHOLD FOR IN DIAGNOSIS.Performed By: #### CMP, LIPA, HSTROPN #### [facility] [address] [place] [address] Dr. Rj MillerXR CSPINE 2_3 VIEWSon 32-17-2427YJ CSPINE 2_3 VIEWSEXAMINATION: XR CSPINE 2_3 VIEWS HISTORY: Neck pain [...] Electronically authenticated by: JENNY TAPIA Date: 2022-09-24 07:[address] [place] [address] Metabolic Panelon 81-88-7908Lqzgakw [Mass/Vol]8.7 mg/dL Normal8.2-10.2FDoctors HospitalComment on above:Performed By: #### BMP #### [place] [address] USAChloride [Moles/Vol]107 mmol/PEtaejg66-234XimimylofKettering Health PrebleComment on above:Performed By: #### BMP #### [place] [address] USACO2 [Moles/Vol]23.3 mmol/JMkaalp65.0-30.0[facility] PrebleComment on above:Performed By: #### BMP #### [place] [address] USACreatinine [Mass/Vol]0.80 mg/dLNormal0.64-1.27[facility] PrebleComment on above:Performed By: #### BMP #### [place] [address] USACreatinine Clr Calc Ijbblobm310.34NoMercy HealthComment on above:Result Comment: PERFORMED BY: [place] [address] PATHOLOGIST ANIMAL SHELTER CLERK MARGO MINOR M.D.Performed By: #### BMP #### [place] [address] USAEstimated GFR ( Emilie> 60NoMercy HealthComment on above:Result Comment: GFR estimated reference range: According to KDOQI guidelines, <60 ml/min/1.73m2 is sufficient to diagnose a patient with chronic kidney disease.Performed By: #### BMP #### [place] [address] USAEstimated GFR (Non- Am> 60NormalKettering Health PrebleComment on above:Performed By: #### BMP #### [place] [address] USAGlucose [Mass/Vol]101 mg/oYHqgn25-801AygcbnxybKettering Health PrebleComment on above:Result Comment: Random Glucose Reference Range is dependent on time and content of last meal. Glucose of more than 200 mg/dL in a nonstressed, ambulatory subject supports the diagnosis of Diabetes Mellitus. ADA recommended reference rangePerformed By: #### BMP #### [place] [address] USAPotassium [Moles/Vol]4.3 mmol/LNormal3.5-5.1FDoctors HospitalComment on above:Performed By: #### BMP #### [place] [address] USASodium [Moles/Vol]138 mmol/IUyqxbn781-383QolurdnxsKettering Health PrebleComment on above:Performed By: #### BMP #### [place] [address] USAUrea nitrogen [Mass/Vol]13 mg/dLNormal9-23[facility] PrebleComment on above:Performed By: #### BMP #### [place] [address] USACalculi, Urinaryon 14-19-5691Ff Oxalate Hcomtcgjb11 % Normal.[facility] PrebleComment on above:Performed By: #### CALCULI #### [facility] ,Ca Oxalate Cseakkmdcoe85 %Normal.[facility] PrebleComment on above:Performed By: #### CALCULI #### [facility] ,Color (U)TanNormal.[facility] PrebleComment on above:Performed By: #### CALCULI #### [facility] ,Comment:Normal.[facility] PrebleComment on above:Result Comment: Physician questions regarding Calculi Analysis contact [facility] at: [phone].Performed By: #### CALCULI #### [facility] ,CompositionNormal.[facility] PrebleComment on above:Result Comment: Percentage (Represents the % composition)Performed By: #### CALCULI #### [facility] ,Disclaimer:Normal.[facility] PrebleComharper university hospital on above:Result Comment: This test was developed and its performance characteristics determined by [facility]. It has not been cleared or approved by the Food and Drug Administration. Performed at: [facility] Stone Analysis [address] [place] [address] Dr Castillo, [place], [place] [id number] Hides Soaker: Anthony Grey MD, Phone: [phone] By: #### CALCULI #### [facility] ,Xeluukmedysjia15 %Normal.[facility] PrebleComment on above: Performed By: #### CALCULI #### [facility] ,NoteNormal.[facility]bleComharper university hospital on above:Result Comment: Calculi report will follow via computer, mail or elevator erector delivery. PERFORMED BY: [facility] [address] [place] [address] PATHOLOGIST ANIMAL SHELTER CLERK MRAGO MINOR M.D.Performed By: #### CALCULI #### [facility] ,PhotoNormal.[facility] Health PrebleComment on above:Result Comment: Photograph will follow under a separate coverPerformed By: #### CALCULI #### [facility] ,Bayb4u0Icqxjw.[facility] PrebleComharper university hospital on above:Result Comment: Multiple pieces received. Dimensions of the largest piece reported.Performed By: #### CALCULI #### [facility] ,SourceUreterNormal.[facility] PrebleComment on above:Performed By: #### CALCULI #### [facility] ,Wtyxyl322Zinjad.[facility] Health PrebleComment on above:Performed By: #### CALCULI #### [facility] ,ECG 12 lead ECGon 51-39-0549AKZ 12 lead ECGMARIETTA MEMORIAL [place] [address] Electrocardiograph Report Signed Patient: Jam Toscaon MR#: [id number] : 1965 Acct:[id number] Age/Sex: 55 / M ADM Date: 02/27/21 Loc: [place] Room: Type: [facility] Attending Dr: Rigo Gonzalez Jr, MD Ordering [...] Ruby DO 02/27/21 1110 Signed By: 02/27/21 1225[facility]Mer[facility] HealthLon 02-27-2021 Specimen: [id number] Received: 02/27/21164 Status: EMELI Flores Num: [id number] Spec Type: Surgical Subm Dr: Rigo Gonzalez Jr, MD, FACS Tissues: A Urinary Calculus (URETHRAL STONE) Procedures: Level 1 Gross Patient Age/Sex Location Account Attending Physician Jam Toscano 55/M [place] [id number] Rigo Gonzalez Jr, MD, FACS SPEC NUM: [id number] RECD: 02/27/21561 STATUS: EMELI FLORES NUM: [id number] RADHA: 02/27/21- [facility] DR: Rigo Gonzalez Jr, MD, FACS ENTERED: 02/27/21-14[address] [facility] [address]: LATOYA TYPE: Surgical DEPT: S ORDERED: Level 1 Gross ORDERED: Level 1 Gross Pathological Diagnosis Urethral stone, extraction: - Specimen consistent with urinary calculi, gross examination only (see gross description). Clinical Information Urethral stone Gross Description Received fresh labeled with the patient's name and urethral stone are 2 concepcion, granular stone fragments that measure 0.6 cm and 0.7 cm. No sections are submitted for microscopic evaluation. Gross exam only. The specimen is sent for stone analysis. (GENEVIEVE/YJ) Microscopic Description Gross examination only CPT Codes 64802 Specimen: [id number] Received: 02/27/21 Status: EMELI Flores Num: [id number] Spec Type: Surgical Subm Dr: Rigo Gonzalez Jr, MD, FACS Tissues: A Urinary Calculus (URETHRAL STONE) Procedures: Level 1 Gross Patient: Jam Toscano [id number] (Continued) Signed (signature on file) Silvestre Poon MD 02/28/21 1428 [facility] 79-25-2133DUQI-CoV-2 (COVID-19) RNA BERNARDO+probe Ql (Unsp spec)NegativeNormalNegativeKettering Health PrebleComment on above:Order Comment: Healthcare Worker?: NResult Comment: Reference: Negative Testing for SARS-CoV-2 by RT-PCR This test was developed and its performance characteristics determined by [employer] (BD) and validated at the [facility]. This test has not been FDA cleared [...] is terminated or revoked sooner. PERFORMED BY: [place] [address] PATHOLOGIST ANIMAL SHELTER CLERK MARGO MINOR M.D.Performed By: #### COVID-19 [facility] #### [facility] [address] [place] [address] USACOVID-19 Positive/Negativeon 92-13-5811BVSOW-19 Positive/NegativeNegativeNegativeSelect Medical Specialty Hospital [facility] North CtrComment on above: Reference: NegativeTesting for SARS-CoV-2 by RT-PCRThis test was developed and its performance characteristics determined by [employer] (BD) and validated at the [facility]. This test has not been FDA cleared or approved. This test has been authorized by FDA under an Emergency Use Authorization (EUA). This test has been validated in accordance with the [facility]'s Guidance Document (Policy for Diagnostics Testing in Laboratories Certified to Perform High Complexity Testing under CLIA prior to Emergency Use Authorization for Coronavirus Disease-2019 duringthe Public Health Emergency) issued on February 16, 2020. This test is only authorized for the durationof time the declaration that circumstances exist justifying the authorization of the emergency use of in vitro diagnostic tests for detection of SARS-CoV-2 virus and/or diagnosis of COVID-19 infection under section 564(b)(1) of the Act, 21 U.S.C. 360bbb-3(b)(1), unless the authorization is terminated or revoked sooner. Otheron 27-83-2358Nowzyckoatt 2019 PCR Inter/[facility] CtrXR ANKLE GENERAL 3V AP/LAT/OBL LTon 35-15-3071Orvunnkvs ClinicDXA-AXIAL SKELETONon 85-61-9423Albsesxlj Clinic Vital Signs Date TimeVital SignValuePerforming NeqymmhufIzlchvwa98-31-0313 08:17-0400Body mass index (BMI) [Ratio]26.81 kg/i1PwrjnzsDarrian Dubon MD Work Phone: [phone]07-22-2025 08:17-0400Body .3 kgDarrian Dubon MD Work Phone: [phone]07-22-2025 08:17-0400Diastolic blood mm[Hg]Darrian Dubon MD Work Phone: [phone]07-22-2025 08:17-0400Heart rate66 /min Darrian Dubon MD Work Phone: [phone]07-22-2025 08:17-0400Systolic blood qnlxtouy420 mm[Hg]Darrian Dubon MD Work Phone: [phone]04-01-2025 07:10-0400Body mass index (BMI) [Ratio]28.12 kg/n8PknneuhDarrian Dubon MD Work Phone: [phone]04-01-2025 07:10-0400Body kg Darrian Dubon MD Work Phone: [phone]04-01-2025 07:10-0400Diastolic blood ifhmamps32 mm[Hg]Darrian Dubon MD Work Phone: [phone]04-01-2025 07:10-0400Heart rate66 /min Darrian Dubon MD Work Phone: [phone]04-01-2025 07:10-0400Systolic blood oqxnaxhg736 mm[Hg]Darrian Dubon MD Work Phone: [phone]11-20-2024 07:15-0500Body mass index (BMI) [Ratio]27.66 kg/u8XxukrnqDarrian Dubon MD Work Phone: [phone]11-20-2024 07:15-0500Body .7 kgDarrian Dubon MD Work Phone: [phone]11-20-2024 07:15-0500Diastolic blood ojsgpdix39 mm[Hg]Darrian Dubon MD Work Phone: [phone]11-20-2024 07:15-0500Heart rate66 /min Darrian Dubon MD Work Phone: [phone]11-20-2024 07:15-0500Systolic blood rnvjnfui184 mm[Hg]Darrian Dubon MD Work Phone: [phone]06-24-2024 10:05-0400Diastolic blood wcwblfku55 mm[Hg]Rheu Maria De Jesus Work Phone: [phone]06-24-2024 10:05-0400Heart rate78 /min Rheu Maria De Jesus Work Phone: [phone]06-24-2024 10:05-0400Systolic blood iflqlpxh799 mm[Hg]Rheu Maria De Jesus Work Phone: [phone]06-24-2024 09:08-0400Body mass index (BMI) [Ratio]27.16 kg/m2Nidia Ascencio APRN.CNP Work Phone: [phone]06-24-2024 09:08-0400Body temperature 98.4 [degF]Nidia Ascencio APRN.PIANO MOVER Work Phone: [phone]06-24-2024 09:08-0400Body tpmnox75.3 kgNidia Silva MIR.PIANO MOVER Work Phone: [phone]06-24-2024 09:08-0400Diastolic blood kusjjqwd59 mm[Hg]Nidia Ascencio APRN.PIANO MOVER Work Phone: [phone]06-24-2024 09:08-0400Heart rate89 /min Nidia Ascencio APRN.PIANO MOVER Work Phone: [phone]06-24-2024 09:08-0181WyL2% (BldA) [Mass fraction]97 %Nidia Ascencio APRN.PIANO MOVER Work Phone: [phone]06-24-2024 09:08-0400Systolic blood jrexcqjk976 mm[Hg]Nidia Ascencio APRN.PIANO MOVER Work Phone: [phone]04-29-2024 09:17-0400Body mass index (BMI) [Ratio]26.66 kg/m2Nidia Silva MCCANNN.PIANO MOVER Work Phone: [phone]04-29-2024 09:17-0400Body .9 kgNidia Gavirialainey MIR.PIANO MOVER Work Phone: [phone]04-29-2024 09:17-0400Diastolic blood ydngbrfz89 mm[Hg]Nidia Ascencio APRN.PIANO MOVER Work Phone: [phone]04-29-2024 09:17-0400Heart rate97 /min Nidia Ascencio APRN.PIANO MOVER Work Phone: [phone]04-29-2024 09:17-6065TfP8% (BldA) [Mass fraction]97 %Nidia Ascencio APRN.PIANO MOVER Work Phone: [phone]04-29-2024 09:17-0400Systolic blood meusemfr416 mm[Hg]Nidia Ascencio APRN.PIANO MOVER Work Phone: [phone] Encounters Encounter DateEncounter TypeCare ProviderFacilityStart: 06-21-2025 End: 74-47-0660lqlobhtqyoTaztcxzj Talal SarminiFacility:Celia DHStart: 06-07-2025 End: 45-17-1350qjjpmvlsjfQlbmucin Talal SarminiFacility:Celia DHStart: 06-06-2025 End: 11-63-2970Yfdqgm outpatient visit 25 minutesDarrian Dubon MD Work Phone: RheumatologyComment on above:Seropositive rheumatoid arthritis (HCC) (Primary Dx); Rheumatoid arthritis 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); On methotrexate therapy; On sulfasalazine therapy; Ulcerative pancolitis (HCC); Osteopenia of multiple sites; History of osteoporosis; History of bisphosphonate therapy; Encounter to discuss test results; Encounter for medication review and counseling; Counseling on health promotion and disease preventionStart: 06-06-2025 End: 23-65-2626atmbnnogieOYBTTBB M HOYFacility:[facility]tart: 06-06-2025 End: 98-69-2477Gqblaqqmpy hospital visit by Ami Cedeno [facility] Maria De Jesus RadiologyComment on above:Seropositive rheumatoid arthritis (HCC) [M05.9]Start: 05-31-2025 End: 80-48-4469azmvkokehvFzxvjoqr Talal SarminiFacility:Celia DHStart: 05-23-2025 End: 80-46-5810fvstrtqtlrHLDXUWB M HOYFacility:[facility]tart: 05-22-2025 End: 58-34-4258igbwvunlrfNlktrklo Talal SarminiFacility:Celia DHStart: 05-11-2025 End: 18-80-5585uwyupplicwCflijixl Talal SarminiFacility:FTMCStart: 05-03-2025 End: 62-91-1748Qxunzj flowsheetJr. Bradly Veliz DO Work Phone: [facility]THOStart: 05-03-2025 End: 05-61-1167Ghkhkg flowsheetJclyde Veliz DO Work Phone: [facility] ORTHOStart: 05-03-2025 End: 26-17-0690Vqptnz outpatient visit 15 minutesJr. Bradly Janene Keren DO Work Phone: [facility] ORTHOComment on above:Pain and swelling of right knee (Primary Dx); History of total left knee replacement; History of total right knee replacement; Pain and swelling of left kneeStart: 05-03-2025 End: 17-11-7889kgsdfzmxukZO., BRADLY Badillo AvailableStart: 03-29-2025 End: 58-71-6413Bzbxvm flowsheetJr. Bradly Watters Gonzálezseb DO Work Phone: [facility] ORTHOStart: 03-29-2025 End: 91-68-6202Ifzkad flowsheetJr. Bradly Watters Keren DO Work Phone: [facility] ORTHOStart: 03-29-2025 End: 91-46-3462Jhfsyf outpatient visit 15 minutesJr. Bradly Veliz Work Phone: [facility] ORTHOComment on above:Pain of right hip (Primary Dx); Primary osteoarthritis of right hip; Arthritis of knee, left; History of total hip replacement, rightStart: 03-29-2025 End: 53-91-0863oliidxzljuQY.BRADLY AvailableStart: 02-14-2025 End: 26-24-0352xnlmwugpumEGWEVJL M HOYFacility:[facility]tart: 02-14-2025 End: 52-77-5799Rxrzdx outpatient visit 25 minutesDarrian Dubon MD Work Phone: RheumatologyComment on above:Seropositive rheumatoid arthritis (HCC) (Primary Dx); Rheumatoid arthritis involving multiple sites with positive rheumatoid factor (HCC); On sulfasalazine therapy; Ulcerative pancolitis (HCC); Other osteoporosis without current pathological fracture; History of bisphosphonate therapy; Encounter to discuss test results; Encounter for medication review and counseling; Counseling on health promotion and disease preventionStart: 12-14-2024 End: 84-30-1373yrrtbhmxxzIkqhyaac Te SarminiFacility:FTMCStart: 11-21-2024 End: 64-59-2850Qbrefwduv encounterDarrian Dubon MD Work Phone: RheumatologyComment on above:Patient UpdateStart: 11-21-2024 End: 05-33-3856mkhdjtwirqUkvclic R WATERSFacility:FTMCStart: 11-21-2024 End: 54-16-9721elnpajvwhdMdrbilm R WATERSFacility:EU BellevueStart: 10-05-2024 End: 30-09-7216autyaohoogRJPSCBA AL-ASHKARFacility:[facility] Start: 10-05-2024 End: 15-90-9739Nfqucg outpatient visit 25 minutesFeaida Dubon MD Work Phone: RheumatologyComment on above:Seropositive rheumatoid arthritis (HCC) (Primary Dx); Rheumatoid arthritis involving multiple sites with positive rheumatoid factor (HCC); On sulfasalazine therapy; Ulcerative pancolitis (HCC); Other osteoporosis without current pathological fracture; History of bisphosphonate therapy; Counseling on health promotion and disease preventionStart: 05-09-2024 End: 53-26-3734fgggzkzbjcTscv 2 Maria De Jesus Work Phone: InfusionComment on above:Other osteoporosis without current pathological fracture (Primary Dx)Start: 05-09-2024 End: 13-95-0921Ugifsin encounter Amaya Ascencio APRN.PIANO MOVER Work Phone: RheumatologyComment on above: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); Vitamin D deficiency; Other osteoporosis without current pathological fractureStart: 05-03-2024 Telephone encounterMaria G Qiu MD Work Phone: RheumatologyComment on above:Results (Labs)Start: 73-76-7979Heeynzdjl encounterNidia Ascencio APRN.CNP Work Phone: RheumatologyComment on above:Patient UpdateStart: 03-14-2024 End: 89-75-6625Lfcvxablli hospital visit by physicianXr [facility]ainRadiology Comment on above:Rheumatoid arthritis involving multiple sites with positive rheumatoid factor (HCC) [M05.79]Start: 03-14-2024 End: 28-38-4628Phopmnc encounter Amaya Ascencio APRN.CNP Work Phone: eumatologyComment on above: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); Vitamin D deficiency; Other osteoporosis without current pathological fracture; Encounter for medication review and counselingStart: 79-86-8438Vqfdvgupk encounterNidia Ascencio APRN.CNP Work Phone: eumatologyStart: 88-90-1475Xdhuvofib encounterNidia Ascencio APRN.CNP Work Phone: eumatologyComment on above:Patient UpdateStart: 05-04-2023 End: 69-24-0909usuwyhznnzJam M Emerick APRN.CNP Work Phone: RheumatologyComment on above: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); Encounter to discuss test results; Counseling on health promotion and disease prevention; Ulcerative pancolitis (HCC); Vitamin D deficiency; On sulfasalazine therapy; Encounter for medication review and counseling; Other osteoporosis without current pathological fracture; Elevated serum immunoglobulin free light chain levelStart: 05-04-2023 End: 91-34-6828Qxfllgftseqs consultation with Marcos Ascencio APRN.PIANO MOVER Work Phone: [facility] [place] [facility]-CLOVIStart: 03-02-2023 End: 52-26-9186pujuulgguwXagPuneet Ascencio APRN.PIANO MOVER Work Phone: RheumatologyComment on above: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); Encounter to discuss test results; Counseling on health promotion and disease prevention; Ulcerative pancolitis (HCC); Other osteoporosis without current pathological fractureStart: 03-02-2023 End: 28-53-5631Wtpgbteipfby consultation with patientAmy M Silva ELEVATOR CONSTRUCTOR.PIANO MOVER Work Phone: [facility] [place] [facility]-CLOVIStart: 02-11-2023 End: 43-49-2325iylrhygkxyXR DOUGLAS HOY .Facility:O9Iclyg: 53-35-5558Nzybwztpw encounterNidia Ascencio APRN.PIANO MOVER Work Phone: RheumatologyComment on above:Outside Lab Results (Vit D )Start: 12-29-2022 End: 97-79-0285joljpddvjpVvg M Emerick APRN.PIANO MOVER Work Phone: eumatologyComment on above: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); Vitamin D deficiency; Encounter to discuss test results; Encounter for medication review and counseling; Counseling on health promotion and disease prevention; Other osteoporosis without current pathological fractureStart: 12-29-2022 End: 12-98-7341Zxkgkabaserw consultation with Marcos Ascencio APRN.PIANO MOVER Work Phone: [facility] [place] [facility]-CLOVIStart: 11-24-2022 End: 02-23-1049bmniibjfpwBB JOSE L LACKEY .Facility:I2Fkbqu: 11-06-2022 End: 73-25-6582undsmvbnfgVC JOSE L AHMETY .Facility:B1Gaqtk: 09-24-2022 End: 23-91-3811jwrlgvnkgaRQ JOSE L HOY .Facility:Y5Fvdhx: 09-23-2022 End: 50-22-2605Gqtazxflxz hospital visit by Ami Cedeno [facility] Maria De Jesus RadiologyComment on above:Other osteoporosis without current pathological fracture [M81.8]Start: 87-19-7542Jnoaquejt encounterDarrian Dubon MD Work Phone: RheumatologyComment on above:ResultsStart: 02-25-2021 End: 64-48-5020Borsfgy encounter Carlyn Gonzalez-Pre-Surgical Testing Start: 02-20-2021 End: 96-13-9242Ahmochdeim hospital visit by physicianJob [facility]ainRad[facility] Comment on above:Seropositive rheumatoid arthritis (HCC) [M05.9]Start: 08-22-2020 End: 31-69-7723Gqdelanapr hospital visit by Ami Cedeno [facility] Maria De Jesus RadiologyComment on above:Rheumatoid arthritis involving multiple sites with positive rheumatoid factor ([facility]) [M05.79] Procedures DateProcedureProcedure DetailPerforming ClinicianStart: 13-88-1401Zlanwwbiub examination knee 1/2 viewsJr. Bradly Veliz DO Work Phone: Start: 41-97-9668Mnfdxlaaae examination knee 1/2 views JrBrittney Veliz DO Work Phone: Start: 82-96-5638Nhzly hip unilateral with pelvis 2-3 viewsJr. Bradly Veliz DO Work Phone: Start: 88-29-4095Fkcjb hand minimum 3 viewsNidia Ascencio ELEVATOR CONSTRUCTOR.PIANO MOVER Work Phone: Start: 47-48-9152JXMQFBX D 25 HYDROXYAmy Griselda Ascencio ELEVATOR CONSTRUCTOR.[employer] MOVER Work Phone: Start: 04-15-3534Mzq bone density study 1/> sites axial Yon Dubon MD Work Phone: Start: 98-14-7275Zhtzf ankle complete minimum 3 views Darrian Dubon MD Work Phone: Start: 39-39-8581Txk bone density study 1/> sites axial Yon Dubon MD Work Phone: Start: 41-17-3445Seewy depression screening assessment Darrian Dubon MD Work Phone: Plan of Treatment DateCare ActivityDetailAuthorStart: 97-90-2379Iixlsfbn ScreeningDiabetes ScreeningBurr Oak ClinicStart: 05-02-2026 End: 22-62-4390Kdeepmi encounter /17/2026 10:00 AM EDT Office Visit [facility] [address] [place] [phone] Jr. Bradly Veliz DO [address] [place] [address] [facility] ORTHOStart: 03-28-2026 End: 45-28-8965Mxzznkc encounter njaudsdej85/13/2026 10:00 AM EDT Office Visit [facility] [address] [place] [phone] Jr. Bradly Veliz, DO [address] [place] [address] [facility] ORTHOStart: 10-31-2025 End: 93-00-6769Ljlkynt encounter /16/2025 10:00 AM EST Office Visit Rheumatology [address] [place] [address] Darrian Dubon MD [address] [place] [address] Please also offer another apt later in 2024 or early 2025 (please use 30 min slot) for RA/OPRheumatologyComment on above:Please also offer another apt later in 2024 or early 2025 (please use 30 min slot) for RA/OP Start: 90-32-9614Mfycybumv vaccinationNOMS HealthcareStart: 06-06-2025 End: 52-43-0949Axbsrbe encounter procedureRadiologyComment on above:Seropositive rheumatoid arthritis (HCC) [M05.9]Return for May 2025 for RA and OP and review of DXA.Start: 05-23-2025 End: 55-03-0640pemiflzfty92/08/2025 8:00 AM EDT Results Only [facility] [address] [facility] [place] [address] labsNortUniversity of Michigan Health LaboratoryComment on above: labsStart: 05-16-2025 End: 148908-lydjfczcxqvztq D3 [Mass/volume] in Serum or PlasmaVITAMIN D 25 HYDROXY Lab Routine Seropositive rheumatoid arthritis (HCC) Ulcerative pancolitis (HCC) Other osteoporosis without current pathological fracture History of bisphosphonate therapy Expected: 05/16/2025, Expires: 08/15/2025 [facility]Comment on above:Expected: 05/16/2025, Expires: 08/15/2025Start: 05-16-2025 End: 08-15-2025 reactive protein [Mass/volume] in Serum or PlasmaC-REACTIVE PROTEIN Lab Routine Seropositive rheumatoid arthritis (HCC) Ulcerative pancolitis (HCC) Expected: 05/16/2025, Expires: 08/[facility] Comment on above:Expected: 05/16/2025, Expires: 08/15/2025Start: 05-16-2025 End: 59-16-2857IGQ W Auto Differential panel - BloodCOMPLETE BLOOD COUNT AND DIFFERENTIAL Lab Routine Seropositive rheumatoid arthritis (HCC) Rheumatoid arthritis involving multiple sites with positive rheumatoid factor (HCC) On sulfasalazine therapy Ulcerative pancolitis (HCC) Expected: 05/16/2025, Expires: 08/15/2025[facility] Work Phone: Comment on above:Expected: 05/16/2025, Expires: 08/15/2025Start: 05-16-2025 End: 70-57-6013Qbpdqiff crosslinked C-telopeptide [Mass/volume] in Serum or PlasmaC TELOPEPTIDE, BETA Lab Routine Other osteoporosis without current pathological fracture History ofbisphosphonate therapy Expected: 05/16/2025, Expires: 08/[facility]/2025[facility]:Expected: 05/16/2025, Expires: 08/15/2025Start: 05-16-2025 End: 87-80-6254Mvyyj function 2000 panel - Serum or PlasmaRENAL FUNCTION PANEL Lab Routine Other osteoporosis without current pathological fracture History of bisphosphonate therapy Expected: 05/16/2025, Expires: 08/15/2025[facility] Comment on above:Expected: 05/16/2025, Expires: 08/15/2025Start: 05-03-2025 End: 27-12-4891Oqvsakb encounter procedureNOMS SWS ORTHOComment on above:Arrived Start: 03-29-2025 End: 55-83-7547Bzuexze encounter ovenueuuu01/14/2025 10:00 AM EDT Office Visit [facility] [address] [place] [phone] Jr. Bradly Veliz C, DO [address] [place] [address] ArrivedNOMS [facility] ORTHOComment on above: ArrivedStart: 02-14-2025 End: 44-18-7723Kdyeprs encounter itbqcdjnk63/01/2025 7:20 AM EDT Office Visit Rheumatology [address] [place] [address] Darrian Dubno MD [address] [facility] [place] [address] DubonRheumatologyComment on above:future with dr. DubonStart: 01-01-2025Medicare Advantage Annual Wellness Visit Medicare Advantage [facility]St[facility] Hospitalt[facility]: 10-05-2024 End: 74-53-8973Wrlqvgd encounter iobrekflg91/20/2024 7:20 AM EST Office Visit Rheumatology [address] [place] [address] Darrian Dubon MD [address] [facility] [address] [facility] [place] [address] RARheumatologyComment on above:RAStart: 09-16-2024 End: 721133-qrtmdbtbtsqrkv D3 [Mass/volume] in Serum or PlasmaVITAMIN D 25 HYDROXY Lab Routine Vitamin D deficiency Other osteoporosis without current pathological fracture Expected: 09/16/2024 (Approximate), Expires: 12/16/2024 [facility]:Expected: 09/16/2024 (Approximate), Expires: 12/16/2024Start: 09-16-2024 End: 12-16-2024 reactive protein [Mass/volume] in Serum or PlasmaC-REACTIVE PROTEIN Lab Routine Rheumatoid arthritis involving multiple sites with positive rheumatoid factor (HCC) Expected: 09/16/2024 (Approximate), Expires: 12/16/2024 [facility] Work Phone: Comment on above:Expected: 09/16/2024 (Approximate), Expires: 12/16/2024Start: 09-16-2024 End: 12-63-1992Umxsuzvismx sedimentation rateSEDIMENTATION RATE, WESTERGREN Lab Routine Rheumatoid arthritis involving multiple sites with positive rheumatoid factor (HCC) Expected: 09/16/2024 (Approximate), Expires: 12/16/2024leveland ClinicComment on above:Expected: 09/16/2024 (Approximate), Expires: 12/16/2024 Start: 09-16-2024 End: 38-41-8568Zjywb function 2000 panel - Serum or PlasmaRENAL FUNCTION PANEL Lab Routine Rheumatoid arthritis involving multiple sites with positive rheumat oid factor (HCC) Other osteoporosis without current pathological fracture Expected: 09/16/2024 (Approximate), Expires: 12/16/2024leveland ClinicComment on above:Expected: 09/16/2024 (Approximate), Expires: 12/16/2024Start: 85-91-5481Egpvyppvh vaccinationSt. Francis Hospitalt[facility]: 05-09-2024 End: 16-40-8850zisrhknyqc95/24/2024 9:30 AM EDT Infusion Center Infusion [address] [facility] [address] [facility] [place] [address] Return labs in 1 month, for reclast and ov in 1-2 months after labsInfusionComment on above:Return labs in 1 month, for reclast and ov in 1-2 months after labsStart: 05-09-2024 End: 11-73-0793Nymblvh encounter zbrvriqqk89/24/2024 9:00 AM EDT Office Visit Rheumatology [address] [facility] [place] [address] Nidia Ascencio, ELEVATOR CONSTRUCTOR.PIANO MOVER [address] [facility] [place] [address] Return labs in 1 month, for reclast and ov in 1-2 months after labsRheumatologyComment on above:Return labs in 1 month, for reclast and ov in 1-2 months after labsStart: 11-99-0716YXU Vaccine (1 - 1-dose 60+ series) RSV Vaccine (1 - 1-dose 60+ series)[facility]: 95-67-5902EUE Vaccine (1 - Risk 60-74 years 1-dose series)RSV Vaccine (1 - Risk 60-74 years 1-dose series)[facility]: 04-13-2024 End: 569669-yffyjuorkeqvth D3 [Mass/volume] in Serum or PlasmaVITAMIN D 25 HYDROXY Lab Routine Rheumatoid arthritis involving multiple sites with positive rheumatoid factor (HCC) Vitamin D deficiency Expected: 04/13/2024 (Approximate), Expires: 07/13/2024[facility] ClinicComment on above:Expected: 04/13/2024 (Approximate), Expires: 07/13/2024Start: 04-13-2024 End: 07-13-2024 reactive protein [Mass/volume] in Serum or PlasmaC-REACTIVE PROTEIN Lab Routine Rheumatoid arthritis involving multiple sites with positive rheumatoid factor (HCC) Expected: 04/13/2024 (Approximate), Expires: 07/13/2024 [facility]Comment [facility] above:Expected: 04/13/2024 (Approximate), Expires: 07/13/2024Start: 04-13-2024 End: 24-92-8069Zsxfjfkdhgb sedimentation rateSEDIMENTATION RATE, WESTERGREN Lab Routine Rheumatoid arthritis involving multiple sites with positive rheumatoid factor (HCC) Expected: 04/13/2024 (Approximate), Expires: 07/13/2024[facility] ClinicComment on above:Expected: 04/13/2024 (Approximate), Expires: 07/13/2024 Start: 04-13-2024 End: 53-04-9655Wrzia function 2000 panel - Serum or PlasmaRENAL FUNCTION PANEL Lab Routine Rheumatoid arthritis involving multiple sites with positive rheumat oid factor (HCC) Expected: 04/13/2024 (Approximate), Expires: 07/13/2024 [facility] Work Phone: Comment on above:Expected: 04/13/2024 (Approximate), Expires: 07/13/2024Start: 04-13-2024 End: 08-81-2305TA Hand - bilateral PA and Lateral and ObliqueXR HAND GENERAL 3V PA/LAT/OBL BILATERAL Radiology Routine Rheumatoid arthritis involving multiple sites with positive rheumatoid factor (HCC) Expected: 04/13/2024 (Approximate), Expires: 04/13/2025[facility]:Expected: 04/13/2024 (Approximate), Expires: 04/13/2025Start: 81-13-9187Wiosxwbcwj Health Screening Behavioral Health ScreeningSt. Francis Hospitaltart: 76-88-3240Xfyslflmjw AssessmentDepression AssessmentSt. Francis Hospitaltart: 48-62-4643JOORUTJM SCREEN DIABETES SCREENSt. Francis Hospitaltart: 00-24-5579Ukfufgemj vaccinationSt. Francis Hospitalt[facility]: 07-04-2023 End: 695340-cauezniehssudy D3 [Mass/volume] in Serum or PlasmaVITAMIN D 25 HYDROXY Lab Routine Other osteoporosis without current pathological fracture Expected:07/04/2023 (Approximate), Expires: 09/03/2023[facility] Work Phone: Comment on above:Expected: 07/04/2023 (Approximate), Expires: 09/03/2023Start: 07-04-2023 End: 30-53-5512HTVKFERTUJ PROT UR W/INTERPMONOCLONAL PROT UR W/INTERP Lab Routine Elevated serum immunoglobulin free light chain level Expected: 07/04/2023 (Approximate), Expires: 09/03/2023[facility] Work Phone: Comment on above:Expected: 07/04/2023 (Approximate), Expires: 09/03/2023Start: 07-04-2023 End: 73-31-0967Mxdqx function 2000 panel - Serum or PlasmaRENAL FUNCTION PANEL Lab Routine Other osteoporosis without current pathological fracture Expected: 07/04/2023 (Approximate), Expires: 09/03/2023[facility] Work Phone: Comment on above:Expected: 07/04/2023 (Approximate), Expires: 09/03/2023Start: 12-29-2022 End: 636905-srvnsjdumxoisy D3 [Mass/volume] in Serum or PlasmaVITAMIN D 25 HYDROXY Lab Routine Vitamin D deficiency Expected: 12/29/2022, Expires: 02/28/2023[facility] Work Phone: Comment on above:Expected: 12/29/2022, Expires: 02/28/2023Start: 71-86-1877TBZKKBDLGK ASSESSMENTDEPRESSION ASSESSMENTSt. Francis Hospitalt[facility]: 47-65-6249Zczrgqbqr vaccinationINFLUENZA (#1)[facility]: 99-44-1102Vyurbkzfc vaccinationINFLUENZA (#1)[facility]: 04-15-2021 COVID-19 VACCINE (2 - Starr risk 3-dose series)COVID-19 VACCINE (2 - Starr risk 3-dose series)[facility]: 20-27-0474WWAOW-19 VACCINE (2 - Starr risk series)COVID-19 VACCINE (2 - Starr risk series)[facility] Start: 57-66-0032RQUSOHBUQPYD (3 - PPSV23 if available, else PCV20)PNEUMOCOCCAL (3 - PPSV23 if available, else PCV20)[facility]: 05-03-2020 PNEUMOCOCCAL (3 - PPSV23 or PCV20)PNEUMOCOCCAL (3 - PPSV23 or PCV20)[facility]: 03-90-5251Ykmawngpcdzp vaccinationPneumococcal Vaccine (3 of 3 - PPSV23 or PCV20)[facility]: 57-23-3685Befkvkpaojkb Vaccine: 50+ (3 of 3 - PPSV23, PCV20 or PCV21)Pneumococcal Vaccine: 50+ (3 of 3 - PPSV23, PCV20 or PCV21)[facility]: 72-92-4716Kvkji depression screening assessment DEPRESSION SCREENINGSt. Francis Hospitaltart: 24-82-9528JSVOCFMO CANCER SCREENING DISCUSSIONPROSTATE CANCER SCREENING DISCUSSIONSt. Francis Hospitaltart: 2019 Prostate specific antigen measurementProstate Cancer Screening Discussion [facility]: 25-17-0527WVNAZTTS VACCINE (1 of 2)SHINGRIX VACCINE (1 of 2)[facility]: 83-15-9755BODRSDSGX (FIT-DNA)COLOGUARD (FIT-DNA) [facility]: 97-21-5042UmpgyxxtjpoIXHGTFRXRGELzginbeya ClinicStart: 32-15-9666KLCYVNHFAD CANCER SCREENINGCOLORECTAL CANCER SCREENINGZanesville City Hospital Start: 83-50-2696WO COLONOGRAPHYCT COLONOGRAPHYSt. Francis Hospitaltart: 2009 FECAL OCCULT BLOODFECAL OCCULT BLOODSt. [facility] Hospitalt[facility]: 35-49-6266Ficllebc specific antigen measurementProstate Cancer Screening DiscussionZanesville City Hospital Start: 85-36-8004Cddkwjhqq for malignant neoplasm of colonSt. Francis Hospitaltart: 59-40-6176TMQGDKUDFZSGITJVSVAQIWOUQTWcxhmsacr ClinicStart: 44-50-2721Qrstm panelLipid ScreeningSt. Francis Hospitaltart: 13-44-4158EAGOK SCREENLIPID SCREEN [facility]: 15-95-0136KVJMUGEO VACCINE (1 of 2)SHINGRIX VACCINE (1 of 2)[facility]: 38-25-2943Dsecs microalbumin profileZanesville City Hospital Start: 25-01-2836Rbzbydg ScreeningAnxiety ScreeningSt. Francis Hospitaltart: 61-66-1959Vfnoejozqz ScreeningDepression ScreeningSt. Francis Hospitaltart: 00-47-8313JFA SCREENINGHIV SCREENINGSt. Francis Hospitalt[facility]: 17-57-4730TBF screeningHIV ScreeningSt. Francis Hospitaltart: 44-27-2412BTM Vaccine (1 of 2 - Risk 2-dose series)MMR Vaccine (1 of 2 - Risk 2-dose series)[facility] Start: 45-02-5044Kvnxapmvgviit B Vaccine: Consider Based On Risk (1 of 4 - Increased Risk)Meningococcal B Vaccine: Consider Based On Risk (1 of 4 - Increased Risk)[facility]: 84-74-6118Opaigjtyn for malignant neoplasm of colonResearch Medical Center End: 48-03-1255SY DXA TRABECULAR BONE SCORE (TBS)BD DXA TRABECULAR BONE SCORE (TBS) Radiology Routine Seropositive rheumatoid arthritis (HCC) Ulcerative pancolitis (HCC) Other osteoporosis without current pathological fracture History of bisphosphonate therapy 1 Occurrences starting 10/05/2024 until 5C[facility] ClinicComment on above:1 Occurrences starting 10/05/2024 until 11/04/2025 DXA TRABECULAR BONE SCORE (TBS)BD DXA TRABECULAR BONE SCORE (TBS) Radiology Routine Seropositive rheumatoid arthritis (HCC) Ulcerative pancolitis (HCC) Other osteoporosis without current pathological fracture History of bisphosphonate therapy 06/06/2025 8:13 AM EDTCleveland Clinic End: 58-94-8387UPI Skeletal system.axial Views for bone densityDXA-AXIAL SKELETON Radiology Routine Seropositive rheumatoid arthritis (HCC) Ulcerative pancolitis (HCC) Other osteoporosis without current pathological fracture History of bisphosphonate therapy 1 Occurrences starting 10/05/2024 until 11/04/2025[facility]Comment [facility]:1 Occurrences starting 10/05/2024 until 11/04/2025DXA Skeletal system.axial Views for bone densityDXA-AXIAL SKELETON Radiology Routine Seropositive rheumatoid arthritis (HCC) Ulcerative pancolitis (HCC) Other osteoporosis without current pathological fracture History of bisphosphonate therapy 06/06/2025 8:13 AM [facility] Work Phone: [facility] Immunizations Immunization DateImmunizationNotesCare GoylnxpsKqmzykul65-21-3652hojastans virus vaccine, unspecified formulationSelect [facility]ty [facility]07-25-2022zoster vaccine recombinantAmy Silva ELEVATOR CONSTRUCTOR.PIANO MOVER Work Phone: [facility] HospitalQryntq64-02-1310twlbmr vaccine recombinant Nidia Silva ELEVATOR CONSTRUCTOR.PIANO MOVER Work Phone: [facility] HospitalFicyro48-41-9834Nxcbxfktf, injectable, Madin [place] Canine Kidney, preservative free, quadrivalentAmy Silva ELEVATOR CONSTRUCTOR.PIANO MOVER Work Phone: [facility] HospitalPlszps31-53-2459pciknrsim virus vaccine, unspecified formulationAmy Silva ELEVATOR CONSTRUCTOR.PIANO MOVER Work Phone: [facility] HospitalQwutho05-62-7182Wpmjuugyd, injectable, Madin [place] Canine Kidney, quadrivalent with preservativeDarrian Dubon MD Work Phone: [facility] HospitalHeskki10-82-2803cybocwvcp, injectable, quadrivalent, preservative freeAmy Silva ELEVATOR CONSTRUCTOR.PIANO MOVER Work Phone: [facility] HospitalBiaewc01-40-4670trsqucqzq, injectable, quadrivalent, preservative freeDarrian Dubon MD Work Phone: [facility] HospitalQjgbad22-58-0591srjixooxd A and hepatitis B vaccineDarrian Dubon MD Work Phone: [facility] HospitalJkvjhg06-09-7389wrkvivtokrcl conjugate vaccine, 13 valentDarrian Dubon MD Work Phone: [facility] HospitalCsdxso81-03-9826abhsrlmzw, seasonal, injectable, preservative freeDarrian Dubon MD Work Phone: [facility] HospitalErsxpz17-12-4102hidfgtpxy A and hepatitis B vaccineDarrian Dubon MD Work Phone: [facility] HospitalGuqngb07-16-1057lwkzcerll A and hepatitis B vaccineDarrian Dubon MD Work Phone: [facility] HospitalAwdtut44-89-2023fvklhklfzwmp polysaccharide vaccine, 23 Isaias Dubon MD Work Phone: [facility] Payers DatePayer CategoryPayerPolicy ID2021MedicareDEVOTED MEDICARE DEVOTED HEALTH [id number] 2021-Present [phone] [address] [place] [address] [id number] 2021Medicare (Managed Care) [facility] [id number] Health InsuranceDEVOMETHODIST [facility] H[facility] Member Subscriber Plan / Payer (Effective 2021-Present) Name: Jam Toscano Member ID: [id number] Relation to Subscriber: Self Name: Jam Toscano Subscriber ID: [id number] Payer ID: Not on file Group ID: Not on file Type: HMO Address: [facility] [id number] [place] [id number] [id number] [id number] 2.0.1.097761.3.57[id number] 2.840.1.350778.3.57[id number] 2.0.1.192284.3.57[id number] 2.840.1.003154.3.57[id number] 2.0.1.540878.3.57[id number] 2.0.1.064965.3.57[id number] 2.0.1.884607.3.57[id number] 2.0.1.960786.3.57[id number] 2.0.1.161600.3.57[id number] 2.840.1.663607.3.579.[id number] 2.0.1.629677.3.57[id number] 2.840.1.478431.3.57[id number] 2.840.1.002823.3.57[id number] 2.840.1.688446.3.57[id number] 2.840.1.329134.3.57[id number] 2.0.1.551192.3.57[id number] 2.0.1.938569.3.57[id number] 2.0.1.224296.3.57[id number] 2.840.1.181482.3.57[id number] 2.0.1.812122.3.57[id number] 2.0.1.873392.3.57[id number] 2.0.1.509877.3.57[id number] 2.840.1.814599.3.579.2.727Private Health InsuranceSelf [id number] Pay [id number] Social History DateTypeDetailFacilityTobacco smoking status NHISUnknown if ever smokedMercy Health Clermont HospitalStart: 38-75-8206Kve Assigned At BirthMalHocking Valley Community Hospital CtrStart: 01-24-2020 End: 38-72-3417Canktsg smoking status NHISEx-smokerSt. Francis Hospitaltart: 01-24-2020 End: 12-59-8394Aavtxap use and exposureSmokeless tobacco non-userSt. Francis Hospitaltart: 02-20-2021 End: 11-93-6536Yoouoiu intakeLifetime non-drinker (finding)[facility] Start: 02-13-1825Bzibybr SDOH Alcohol Ybdtnvgmr7Gljkkvhav ClinicStart: 01-24-2020 End: 33-84-4116Rdqgelq Commentquit in 2011[facility]: 42-39-2595Hgy Assigned At BirthNot on fileSt. Francis Hospitaltart: 01-19-2022 End: 52-60-6841Ulxijxit to SARS-CoV-2 (event)Unable to assessZanesville City Hospital End: 32-13-6848Djfybxb of tobacco useCurrent smokerSt. Francis Hospitaltart: 01-24-2020 End: 51-10-2063Nctqpxz of Social functionSt. Francis Hospitaltart: 01-24-2020 End: 40-95-7491Cpzytbe Use Disorder Identification Test - Consumption [AUDIT-C] [facility] HospitalHow often to you have a drink containing alcohol?NeverZanesville City HospitalAverage Number of DrinksNot on [facility]: 07-23-2020 End: 26-08-2880Tevcgzcb to SARS-CoV-2 (event)Not sureZanesville City Hospital End: 95-34-2321Ipsrfhh of tobacco useCigarette SmokerNOMN HealthcareStart: 51-03-9060Cwornxu use and exposureFormer smokeless tobacco userNOMN Healthcare Start: 06-16-2023 End: 27-75-8696Avvzqqvdh beverage intakeEx-drinker (finding)[facility] Start: 81-92-8303Lmfmwxf CommentCaffeine: more than 4 cups per dayNOMN Healthcare Goals DatePatient GoalDesired Activity/State Clinical Notes 08-22-2020 to 06-07-2025 Note Date & RcknBzdwBsupmvmq35-10-0290 NoteNurse Consultation Note Assessment/Plan patient tolerated real capsule [...] 05/03/2015 Recorded hepatitis A-hepatitis B vaccine 05/03/2015 [facility] Instructions* Patient Instructions* Darrian Dubon MD - 06/06/2025 8:46 AM EDT -PLEASE NOTE THAT WE REVIEW ALL YOUR TEST RESULTS AT YOUR NEXT FOLLOW UP VISIT WITH YOU. IF ANY ABNORMAL LAB REQUIRES SOONER ATTENTION, WE WILL CONTACT YOU. -If you have signed up on [employer], we will release your test results through [employer]. I wish you the best of health [...] available if Dr. Lackey needs to call [facility] discuss your RA. Continue following with your Online Marketing Coordinator. Great work on your bone density. You [...] Additional information on methotrexate available at: The [place] [employer] website : https://www.rheumatology.org/I-Am-A/Patient-Caregiver/Treatments /Jgdfanbcjunh-Sfzvnjeghv-Fiwtfga and The [facility] website : https://my.[facility].org/health/drugs/49360-urguplwysiha - Please take your vitamin D with [...] track your nutrition and calcium intake on www.[employer] This provides macro and micronutrient intake and requirements. - You can track your calcium intake on MyClean or any other calcium tracker of your [...] youtube and copy and paste this link: [email or web address] [email or web address] This is done by a Physical Medicine and Rehab doctor who is a assistant professor of theater in [employer]. She completed a PhD at the [employer]. I hope you find it helpful. Please take precautions and start gradual when starting a new exercise program. - I recommend reviewing the exercises from the LIFTMOR study. If you are interested in considering these strength training exercises you will need to work with a Customer Support Advisor or Physical Therapist, as they need to [...] low bone mass. BMJ Open. 2017 Apr 27;7(6):q836029. doi: 10.1136/tbxqrnr-5108-828247. PMID: 45387326; PMCID: NUT0083296. -Twin Nick, Selvin Watters, Chetan RENNER, Rosa Maria MONTANO, Shankar WICK. A Comparison of Bone-Targeted Exercise Strategies to Reduce Fracture Risk in Middle-Aged and Older Men with Osteopenia and Osteoporosis:LIFTMOR-M Semi-Randomized Controlled Trial. J Bone [place] Res. 2020 Jun;35(8):4032-2080. doi: 10.1002/jbmr.4008. Epub 2019Feb 12. PMID: 06310290. Information regarding Whole Body Vibration Plate: You can review this article. Ref: Aparicio RDJ, Aparicio RG, Aparicio LC, Arlene SD, S Venkat DC, Ridge. Effectiveness of whole-body vibration on bone mineral density in postmenopausal women: a systematic review and meta-analysis of randomized controlled trials. Osteoporos Int. 2022;34(1):29-52. doi: 10.1007/x77543-080-24965-q. Ep2021Sep 09. PMID: 38072987. Their conclusion: only high frequency associated with [...] hazelnuts, legumes, soybeans and other beans) - Fields (potatoes, avocados, almonds, peanuts) - Chromium (broccoli, [...] Ther Adv Musculoskelet Dis. 2011 Oct;3(6):293-300. doi: 10.1177/6907794F08814703. PMID: 13945970; PMCID: DSN7647059. -SUDHEER Carrillo., NYLA Dodson., GHAZAL Flores. et al. Soy isoflavone intake inhibits bone resorption and stimulates bone formation in menopausal women: meta-analysis of randomized controlled trials. Eur J Clin Nutr 62, 155-161 (2008). https://doi.org/10.1038/sj.cn.2810315 -Clyde Rosa, Trisha Lara, Bar De Leon et al. Isoflavone intervention and its impact on bone mineral density in postmenopausal women: a systematic review and meta-analysis of randomized controlled trials. Osteoporos Int (2022). https://doi.org/10.1007/v39916-786-28945-f -Jack Finch, Trisha Lara, Andrez Grant. et al. Effects of isoflavone interventions on bone mineral density in postmenopausal women: a systematic review and meta-analysis of randomized controlled trials. Osteoporos Int 31, 0882-9525 (2020). https://doi.org/10.1007/p98938-934-66780-d - Benefits of consuming soy in whole foods are listed in this article at the PCR website: https://www.pcrm.org/good-nutrition/nutrition-information/miw-evo-klioun - Prunes have been reported to help [...] Am J Clin Nutr. 2021 6;116(4):897-910. doi: 10.1093/ajcn/usfa275. PMID: 89743368. -Benefit to bone density and inflammation: Hebert WYMAN, Perrin, Glory SOLARES, Sivakumar ALDANA, Trey CUBA. The Role of Prunes in Modulating Inflammatory Pathways to Improve Bone Health in Postmenopausal Women. Adv Nutr. 2021 2;13(5):1476- 1492. doi: 10.1093/advances/tbuy955. PMID: 63067430; PMCID: FTR7124866. - Information on Vitamin K2: more recently [...] foods, with the exception of Natto(a traditional Palestinian food made from fermented soybeans) has high [...] of these foods, please consult with your Humanities Coordinator or Physician first. Review of Osteoporosis medications [...] femur. You can read more at these [facility] web links: https://my.[facility].org/health/treatments/05466-ncvxpapayfuoupf For Fosamax/alendronate: https://my.[facility]/health/drugs/28148-irstnxmagkr-evrealg For Actonel/risedronate: https://my.[facility]/health/drugs/45750-taqqzmjshyc-tjer-dkjndyrCor Reclast/zoledronic acid: https://my.[facility]/health/drugs/72456-kjbaneqiar-nkly-bwzvkt ets-ojwfdh-grjdbzh-osteoporosis -Subcutaneous Prolia: this is one injection every 6 months, given by the nurse in the office. This medication is given rocket engine component mechanic, indefinitely. Prolia should not be discontinued without [...] looked into transition therapy. Recent study from [facility] Slim et al, 04/11/2020 (PMID: 22210468.The study is ongoing, clinicaltrials.gov; [id number]), reported one infusion of IV Reclast did [...] femur. You can read more at these [facility] web links: https://my.[facility].org/health/drugs/27266-wyjathjfh-oorvmufho Medications that build bone density and prevent [...] etc... You can read more at these [facility] web links: For Forteo/teriparatide: https://my.[facility]neSmashChart.org/health/drugs/97210-eflznbeayxjy-wrxyxtvmk For Tymlos/abaloparatide: https://[employer]Qranio.org/health/drugs/74306-fqqejafdhdpiw-hmzexcyrt Medication that both prevents bone loss and [...] initiated in patients who have had an IN orstroke in the preceding year or those considered high risk. We may need a clearance from a Length Control Tester prior to proceeding with this medication in patients who have a cardiovascular disease history. This is only prescribed for 1 year and then needs to be followed by anti- resorptive therapy, according to recommendations. You can read more at these [facility] web links: For Evenity/romosozumab: https://my.[facility].org/health/drugs/80317-spnvcnjtrpb-dlfwbfwrq Other less potent Osteoporosis medications, such as [...] available medications were provided: Link to the [place] [employer] website at: https://www.rheumatology.org/I-Am-A/Patient -Caregiver/Diseases-Conditions/Osteoporosis Link to the [facility] web link at: On Osteoporosis: https://my.[facility].org/health/diseases/4443-osteoporosis On Osteopenia: https://my.[facility].org/health/diseases/11509-dwmeumhtpc - Additional information on Bone Health and [...] following resources: www.nof.org (National Osteoporosis Foundation) http://www.osteo.org/osteolinks.asp [place] [employer]: 5-822-002-BONE The Calcium Information [place]: Non-Dairy, Plant based Milk, can contain in1 glass up to 450 mg of calcium (300 to 450 mg) Exampled include Oat Milk, Flax Milk, [place] Milk, Cashew Milk, Soy Milk, Peas Milk Examples of Food Sources of Calcium from [facility] Food Milligrams (mg) per serving Percent DV* Soymilk, calcium-fortified, 8 ounces 299 30 [place] juice, calcium-fortified, 6 ounces 261 26 Tofu, firm, made with calcium sulfate, cup* 253 25 Tofu, soft, made with calcium sulfate, cup* 138 14 Yocwg-hn-wva cereal, calcium-fortified, 1 cup 100-1,000 10-100 Turnip greens, fresh, boiled, cup 99 10 Kale, raw, chopped, 1 cup 100 10 Kale, fresh, cooked, 1 cup 94 9 Israeli cabbage, bok marin, raw, shredded, 1 cup 74 7 Bread, white, 1 slice 73 7 Tortilla, corn, lasqk-aq-exnm/marshall, one 6 diameter 46 5 Tortilla, flour, jrxvi-kv-mgmp/marshall, one 6 diameter 32 3 Bread, whole-wheat, 1 slice 30 3 Broccoli, raw, cup 21 2 * DV = Daily Value. DVs were developed by the U.S. Food and Drug Administration to help consumers compare the nutrient contents among products within the context of a total daily diet. The U.S. Department of Agriculture s (USDA s) Nutrient Database Web site lists the nutrient contentof many foods and provides comprehensive list of [...] daily with a meal; Certain patients require 0634-6490 international units daily and in patients deficient [...] bones. Studies show approximately 50% of [place] men and women are vitamin D deficient [...] of falling. Additional Information is available from: [facility] Osteoporosis Information: https://my.[facility].org/departments/orthopaedics-r heumatology/depts/osteoporosis-metabolic The Bone Health and Osteoporosis Foundation (formerly the National Osteoporosis Foundation) : https://www.bonehealthandosteoporosis.org International Osteoporosis Foundation: https://www.osteoporosis.foundation http://ods.od.nih.gov/factsheets/vitamind.asp [facility]: 3-987-754-BONE The Calcium Information [place]: I recommend following a healthy lifestyle. You [...] and maintaining healthy weight. with healthy BMI to 25, and ideally around 22-23 when possible. For Osteoporosis and low bone density, it is important to keep a BMI at 22 or above and ensure good strength training exercise routine. - You can track your nutrition and calcium intake on www.NavSemi Energy.GameGenetics This provides macro and micronutrient intake and [...] that features the Whole Plant Based diet, [place] over knives (see video online and visit website). Another movie that was recently released is: Eating You Alive (you can find it at [employer]) and The Game Changers movie Dr. Fauzia Ansari is a [facility] physician who has done research and published books, is an expert in Whole Plant based diet for prevention and reversal of heart disease. His website is [employer]. His research highlights the benefits of the Whole food plant based diet in reversingand preventing heart disease. Mrs. Cookie Ansari (his ) has a cookbook with many recipes on whole plant based food: The Prevent and Reverse Heart Disease cookbook. Cookie and Yamile Parthanickie have a cooking show on YouTube called: Plant-Based with Yamile Coty and Cookie Leongдмитрий. 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 Dr. Rock Velazco, has a website and free angélica to help get started on a whole plant based diet, at www.pcrm.org and you can log on for free for his 21-Day Kickstart with meals and recipes to follow for21 days. There is also a free angélica for that. He has multiple free videos and YouTube, for example: ht tps://youtu.be/xrfHjmkC8z7 , https://youtu.be/ZeWPDzzop1i He has written multiple books, including Power Food for the Brain, The Cheese Trap, Dr. Rock Velazco's Program for Reversing Diabetes, Your Body in Balance You can also watch YouTube channel : The Doc & Doll Wig Hackler Dr. Anthony Carlson has shown the benefit of a starch based whole food plant based diet to his Rheumatoid Arthritis patients, as well as patient with diabetes II, hypertension, obesity, multiple sclerosis, heart disease, acne, and other, his website: www.tejadomaríal.com Dr. Yayo Allred is a renowned formulation scientist, who has studied and researched the benefits of the Whole plant based diet. He has also researched the adverse effects of animal proteins on health. He presents many of his research findings in his book The [place] study. Dr. Gerber Becker has completed many research trials proving the reversal of diseases, such as heart disease and early prostate cancer, with healthy lifestyle and the Whole Plant based diet. Dr. Gerber Becker website is: www.alvaroKewl Innovationsevelyn.GameGenetics His new book: Undo It, has evidence based information and guide to following this healthy lifestyle. Dr. Cody Dillon has dedicated a website and additional time to reviewing all food related articles and research and presents them in his power point presentation and on his website at: nutritionfacts.org which is all free. Dr. Dillon has multiple free videos and YouTube, for example https://[employer].Love Home Swap/aSgNkhgVtks and https://youNewBridge Pharmaceuticals.be/lXXXygDRyBU. He has written multiple books including: How Not To and How Not To Diet He is now working on his next book: How Not To Age Dr. Danitza Dash (from the [facility]), has articles on the following website: [employer]tersong For additional ideas on recipes, you could find additional information on practical to follow recipes by reading or watching online and YouTube such as: Doll Wig Hackler AJ, Cooking With Plants, The Vegan Corner(recipes from an Libyan Doll Wig Hackler), The Whole Foods Plant Based Cooking Show and visiting the provided websites for additional information on the whole plant based benefit and cooking recipes. You can also consider watching the vlogs of some of the plant based Athletes such as Fausto Ewing Derek on ManyWho Nutrition. You can find very good recipes [...] Dr. Jenny Degroot Lifestyle Medicine (is a Length Control Tester and Lifestyle Medicine Physician) -Sometimes it helps to start with a simple diet of potatoes, that Dr. Carlson calls AntoniettaIvanshayla Butler. You can learn more about that in his website: www.PushToTest This is the website for Yarelis Butler pdf : https://www.PushToTest/wp-content/uploads/ oj-Cgdx_Iqlkisy_Xdenj_Vdpfosq-2.pdf You can also read more on Dr. Carlson's website - When you goal is to lose weight, it is important to listen to your hunger cues. Don't eat until you are stuffed. As soon as you feel you are no longer hungry, stop eating. There is a Palestinian saying that says Tammie Vega, meaning eat until you are 80% full. I say avoideating past 80% of your stomach fullness. This originated from the city [facility], which is one ofthe sites reported in the Blue Animating Touch book, one of the highest cities in the world for having the most centenarians. Remember your stomach needs space and capacity for proper digestion of your food. Like a fast food crew member or a pizza driver, they have a limit for proper function, and should not be filled to the top. You can read more about that from the [facility] article Don t Eat Until You re Full ? Instead, Mind Your Tammie [place] Point , at https://health.[facility].org/kjmx-gck-xzknt-thhws-gksg-x pbpkko-xags-hjzg-nvxs-hflpi-tz-point/ Most plants contain proteins and all essential [...] a nutrition tracker such as cronometer or Lumetric Lightingpal and others. Dr. Maryan Holguin (a psychiatrist [...] you will need to consult with a assurance analyst to have further evaluation to exclude Celiac [...] - Gentle Yoga Anyone Can Do Anywhere www.LiquidSpace.GameGenetics/yoga Also on youtube: yoga with Karlie For women, especially after menopause, strength training is important. You can read more on that from Clare Morley, PhD at her website https://www.AviantLogic and YouTube videos. If you are a beginner, it is best to start with a physical therapist or personal injury paralegal. There are also several Aps that offer virtual personal training 3- Good Sleep (poor sleep impacts everything, recommended sleep is 7 to 8 hrs. a night). Certain people may need more sleep, depending on their age and other conditions. Meditation and relaxation techniques have shown to help with improving sleep. Try to be consistent with your sleep. You can find more at the [facility] Website on : https://my.[facility].org/departments/wellness/store/go-well#sleep-tab 4- Stress management, be happy, laugh often [...] Calm Insight Timer Meditation Stress Free Now ([facility]). You can find more resources at the [facility] website at : https://my.[facility].org/departments/wellness/store/go-well#yawdmz-tfzg-qv b There are many free youtube videos on guided meditation as well For Breathing techniques: You can watch John Carlisle and learn the breathing technique and its benefits by watching the following YouTube: https://youSunlight Foundationu.be/9Kr2O-DWf71?si=-Ojnjp7OaeNGVuBM. Learning about your awareness/spiritual being, is very [...] work with a psychotherapist or behavioral health coach professional athletes. When having a psychiatric condition, it is [...] based diet, it is recommended to take RlznwnsA55, sublingual, dissolve under the tongue, take once daily. Vitamin B12 is available over the counter, dose could be 2500 mcg, and can be taken once a week, and if your blood levels are low, you mayneed to take it once daily or a higher dose. Raw: Garlic, Cilantro, [place] nuts, Pumpkin seeds, [place] seeds and Flax seed powder have been reported to help with certain metal detoxification such as mercury. [place]-3 plant based rich foods are good anti-inflammatory [...] the Whole Plant Based Diet, by watching [place] over ConnectFu movie and then review website. There are many other resources and educational information on the Whole plant based diet on the Internet and documentaries. There are other resources for wellness that you can also benefit from, such as the [facility] website, [facility]org and includes Plant based and Mediterranean diet, yoga and meditation. Please avoid all dairy products. You could use non-dairy milk such as Flax milk, Cashew milk, [place] milk, Rice milk, Oat milk or Hemp [...] below, just add the ingredients to your pizza driver and blend: - Probably the healthiest smoothie is one that contains mostly green leafy vegetables (especially containing kale), some berries, flax seed and water. This might not return to factory clerk to be sweet. You can addone or two pitted dates or a frozen banana for natural sweetness. Examples of healthy green smoothies, pack your pizza driver (at least half way to 01/17) with a mix of green leafy veggies, then top your pizza driver with fruits (such as banana or frozen raul or pineapple, peaches, apricots, apples, grapes), a tablespoon of flax or david seeds, then add water or unsweetened coconut water and blend until smooth. You can also add turmeric in this recipe. Do not only use spinach as they tend to be high in oxalates and can be risk for kidney stones. The same with kenyan chards and beet leaves. If you don't [...] of your health and wellbeing. At the [facility], we work as a team for your care, along with Nurse Practitioners, PhysicianAssistants, Nurses and Medical Assistants. It is a privilege and honor to serve you. Thank you for choosing The [facility] for your healthcare. Sincerely, Darrian Dubon MD documented in this [facility]07-[facility] NoteHNO ID: [id number] Author: DARRIAN DUBON MD Service: ? Author Type: Physician Type: Progress Notes Filed: 06/07/2025 15:19 Note Text: FOLLOW UP VISIT Patient's Name: Jam [address]win [address] [place] [id number] PCP: Jose L Lackey MD [address] [place] [phone] Consult Requested by: Jose L Lackey MD [address] [place] [phone] Other physicians: Online Marketing Coordinator prev. Nel Lebron MD (his prev. assurance analyst left- Ronald Brown MD) ; Now following with Dr. Luis Antonio García Accompanied by: self Interim history: is here for f/u RA and OP Recording using ambient AI software for draft documentation of the visit was discussed with the patient/authorized district sales representative; all questions welcomed and answered. Patient/authorized district sales representative agreed to proceed Reports doing fine today, but this would be his last apt. 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 He has also been seeking local retail customer service specialist closer to home for him. This is [...] He is still undergoing evaluation by his assurance analyst for his IBD disease activity. He has been on Entyvio. States he has gastrointestinal evaluation by his assurance analyst and states - Undergoing capsule endoscopy tomorrow to evaluate small intestine for potential tumors or bleeding. - Recent colonoscopy showed small benign tumors. States told his tumors were benign But still needs the camera States because he is bleeding and requiring His PCP and Online Marketing Coordinator are addressing his anemia and further evaluating He had iron infusion 05/26/2025 States he is on potassium and iron infusion by his Primary care physician States his Primary care physician started him on 4 tbs/wk and is comfortable with that He continues on the sulfasalazine, and states his assurance analyst prescribes it, as well as the Entyvio. No interim fractures Continues on vitamin D I reviewed results with patient 02/14/2025 Mr. Toscano is a very nice 59 y.o. gentleman here for f/u visit for Rheumatoid Arthritis and Osteoporosis He follows with IBD, UC, on Entyvio and sulfasalazine; [facility] had liver US and fibroscan, told no fatty liver He is no longer on anti-TNF therapy. States his PCP is treating his anemia with iron, was on supplement and switched to IV. He is not aware of bleeding, denies BRBPR and denies melena. He follows with Online Marketing Coordinator for his UC. [facility] has scopes this summer by his assurance analyst. He is following with Orthopedics for his osteoarthroses and non-inflammatory joint pains. He has a chronic rotator cuff tear and extensive bilateral glenohumeral degenerat (more content not included)...[facility] 06-06-2025 History of Present illness Narrative* Darrian Dubon MD - 06/06/2025 8:30 AM EDT Images from the original note were not included. FOLLOW UP VISIT Patient's Name: Jam Toscano [address] [place] [address] [facility] [address] PCP: Jose L Lackey MD [address] [place] [phone] Consult Requested by: Jose L Lackey MD [address] [place] [phone] Other physicians: Online Marketing Coordinator prevBrittney Lebron MD (his prev. assurance analyst left- Ronald Brown MD) ; Now following with Dr. Luis Antonio García Accompanied by: self Interim history: is here for f/u RA and OP Recording using Coupsta software for draft documentation of the visit was discussed with the patient/authorized district sales representative; all questions welcomed and answered. Patient/authorized district sales representative agreed to proceed Reports doing fine today, but this would be his last apt. 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 He has also been seeking local retail customer service specialist closer to home for him. This is [...] He is still undergoing evaluation by his assurance analyst for his IBD disease activity. He has been on Entyvio. States he has gastrointestinal evaluation by his assurance analyst and states - Undergoing capsule endoscopy tomorrow to evaluate small intestine for potential tumors or bleeding. - Recent colonoscopy showed small benign tumors. States told his tumors were benign But still needs the camera States because he is bleeding and requiring His PCP and Online Marketing Coordinator are addressing his anemia and further evaluating He had iron infusion 05/26/2025 States he is on potassium and iron infusion by his Primary care physician States his Primary care physician started him on 4 tbs/wk and is comfortable with that He continues on the sulfasalazine, and states his assurance analyst prescribes it, as well as the Entyvio. [...] BRBPR and denies melena. He follows with Online Marketing Coordinator for his UC. [facility] has scopes this summer by his assurance analyst. He is following with Orthopedics for his osteoarthroses and non-inflammatory joint pains. He has a chronic rotator cuff tear and extensive bilateral glenohumeral degenerative disease. His s/p b/l TKRand rt THR. Hissed rate was elevated at 79 04/2024 at time of his pneumonia. He continues on sulfasalazine and Entyvio by his assurance analyst. He does not describe RA related symptoms No jt pains or swelling outside of the LLE from TKR Denies rheum nodules No stiffness He is on sulfasalazine per assurance analyst for his UC and this has been controlling his RA He is pleased with his treatment regimen He also states that his IBD is well controlled, states told is in remission, on Entyvio Doing exercise and working with personal injury paralegal at the gym and will be going [...] in IBD and is following with local assurance analyst for that. Has been on Humira since Sep 2020 (started with 80 mg loading dose and since has been on 40 mg every 2 wks) He was pleased with Enbrel response to his RA and later was switched to Humira, reports has similarbenefit and is pleased with response. His assurance analyst switched him to Humira for optimal mgt of IBD and he feels this has helped his IBD better. Reports still gets 8 BM's a day, does not have BM at night, does not have to wake up from sleep. Has been following with his assurance analyst for his UC Had colonoscopy 11/22/2021 with reported marked improvement in asc/transv/desc colon and severe active in rectum, histopath with active colitis with erosions. States Dr. Lebron has started him on rectalenemas. Recent colonoscopy with reported active colitis. He tells me that he continues to have multiple BM's; His assurance analyst prescribed pred. course, completed recently. No jt [...] us, he is on Humira per his Online Marketing Coordinator He is off Enbrel, was switched to Humira by his assurance analyst. (previously was on Enbrel 25 mg twice a wk and has been in remission since on Enbrel and very pleased with his treatment regimen) He is on Humira 40 mg every 2 wks by his Online Marketing Coordinator He is on sulfasalazine, Humira and mesalamine enemas per his assurance analyst I have reviewed benefits of a whole food plant based diet He consumes dairy, cheese, sausage, hamburger. I have advised him on avoiding meats and dairy and reviewed reports and patient experience with flare of IBD and RA, as well as gastrointestinal dysbiosis. I advised him on a whole foods plant based diet. 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 Fur Stretcher: CODY Transcribe Date/Time: Feb 20 2021 9:52A [...] , feels needs to pull bones apart. [facility] is the site where has fallen arch. Has seen Relationship Specialist in the remote past for the fallen arch, not recently. Feels gets stiff when not moving as much. Denies any injury or trauma. Denies any pain to me today States his assurance analyst has prescribed prednisone course due to IBD flare States after scope was told is flared. He is on sulfasalazine and budesonide and his assurance analyst and since has switched him from Enbrel [...] available Documentation recorded by the Lizeth mckenzie Ortman accurately reflects the services(s) I performed and [...] Alk phos isoenz: liver fraction; followed by assurance analyst He follows with his assurance analyst for hi elev alk phos and AST and for bld with stools, Dr Brown: and states he started him on iron supplement States Dr. Brown prescribed metronidazole, for reported diarrhea. [facility] felt it made a difference. [facility] he gave him enemas and told that is for his ulcerative colitis and prescr. sulfasalazine. In 2019, has also followed with his assurance analyst for blood with stools, and had flex sig and told he was inflamed from his Ulcerative colitis. [facility] had colonosc and EGD in 2018 and was told were good. Told his bld in stools from his UC and patient states notices also mucus when wipes. [facility] had increased his sulfasalazine dose. [facility] also notices that dairy and [...] systems reviewed and are negative DXA Model: AllPeers W [id number] SITE SCANNED: Lumbar spine and left hip [...] were all normal. He follows with his assurance analyst for his ulcerative colitis and is on sulfasalazine. He was told by his assurance analyst to avoid sun exposure due to this med, had skin itching last summer. He had evaluation for elevated AST and alk phos. Alk phos has improved and AST has been borderline elevated. I have advised him to f/u with his assurance analyst for his elevated alk phos (liver fraction) States his assurance analyst did an US of his liver twice and was told was normal. He denies any alcohol consumption or acetaminophens. His isoenzyme indicated predom. of liver origin. The patient reports that his assurance analyst completed evaluation and told his liver is fine. His liver US was unremarkable . His anemia has resolved since his UC has been controlled. States saw his assurance analyst, Dr. Lebron, recently and states told him [...] and denies hematuria or dysuria. DXA Model: AllPeers W [id number] SITE SCANNED: Lumbar spine and left hip [...] states not bad . has seen a retail customer service specialist in the past, in [place], Dr. Whitfield. [...] 500mg q 6hrs. Reports benefit and his assurance analyst took him off the iron supplement as [...] Dactylitis: no H/o precedent/frequent infection(s): as above Enthesopathy/[place]'s/heel/plantar tenderness: no Skin thickening, psoriasis, photosensitivity, purpura: no Nail changes: no Alpecia, patchy: no; has MPB Eye inflammation: no SICCA: no Oral/nasal/genital ulcers: no GI problems-diarrhea/bleeding/IBD/Gluten intolerence/Dysphagia: as above Raynaud's phenomenon/digital ulcers: no Organ inv-Serositis: no Lung disease/ILD: no Myopathy/proximal muscle weakness: no Abnormal Urine or urethritis: no Renal disease: no VALVE MACHINE OPERATOR/PNS disease: no and denies MS HEME-Cytopenias/LAD/Clots: [...] Marital Status: Single denies children 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 Lackey Smoking: [...] Negative Negative Ketones, Urine Negative Negative Specific Almond, Ur 1.005 - 1.030 1.008 Hemoglobin/Blood,Ur Negative 3+ (A) pH, Urine 4.5 - 8.0 6.0 Protein, Urine Negative mg/dL Negative Urobilinogen Normal Normal Nitrites Negative Negative Leukest Negative Negative Comments SEE COMMENT Urine Adan Comment SEE COMMENT WBC, Urine 0 - 5 /HPF 0-5 RBC, Urine 0 - 3 /HPF >25 (A) Sm Antibody <1.0 AI <0.2 SUPERVISOR PIG MACHINE Antibody <1.0 AI 1.2 (H) SSA Antibody <1.0 AI <0.2 SSB Antibody <1.0 AI <0.2 Centromere Ab <1.0 AI <0.2 Scleroderma Ab, IgG <1.0 AI <0.2 Milagro 1 Antibody <1.0 AI <0.2 Ribosomal SUPERVISOR PIG MACHINE <1.0 AI <0.2 Chromatin Antibody <1.0 AI [...] KURT Negative Positive KURT Titer Negative 1:80 KRUT Pattern Atypical speckled DNA Antibody w/Confirmation <30 IU/mL <12 Sm Antibody <1.0 AI <0.2 Ribosomal SUPERVISOR PIG MACHINE <1.0 AI <0.2 Chromatin Antibody <1.0 AI <0.2 SSA Antibody <1.0 AI <0.2 SSB Antibody <1.0 AI <0.2 SUPERVISOR PIG MACHINE Antibody <1.0 AI 1.2 Scleroderma Ab, IgG [...] FINDINGS CONSISTENT WITH CHRONIC SEVERE RHEUMATOID ARTHRITIS. Fur Stretcher: [facility] Transcribe Date/Time: Aug 29 2015 12:56P ... Last XR Ankle - Impression Only XR ANKLE GENERAL 3V AP/LAT/OBL LT Exam End: 02/20/2021 8:42 AM (Final result) Impression: IMPRESSION: Arthritic changes demonstrating interval progression in this patient with known rheumatoid arthritis. Fur Stretcher: KETTYB Transcribe Date/Time: Feb 20 2021 9:52A [...] Ta Finn M.D.01/23/2025 9:09 PM Dictation Location: [place] [address] Electronically authenticated by: [id number] Y Date: 01/23/2025 21:09 Dictated By: Ta [...] by: Anil Tillman Jr., D.OBrittney02/03/2025 2:34 PM XR Shoulders: Exam Date: 01/23/2025 [...] developed and its performance characteristics determined by [facility]'s Rajeev Nasim [facility] Pathology and Laboratory Medicine [facility] ([facility]). It has not been cleared or approved by the FDA. RT-PLIN is regulated under CLIA as qualified to perform high-complexity testing. This test is used for clinical purposes. It should not be regarded as investigational or for research. Testosterone Date Value Ref Range Status 08/19/2018 387 193 - 824 ng/dL Final Comment: A testosterone level in the 193-320 ng/dL range with associated clinical symptoms is considered low and may indicate hypogonadism (from [facility] 2009 363:123-135). Results >320 ng/dL are considered [...] 147 53 - 334 mg/dL Final MPA Chinle, Serum Date Value Ref Range Status 08/19/2018 1,020 534 - 1,267 mg/dL Final MPA Lambda, Serum Date Value Ref Range Status 08/19/2018 551 253 - 653 mg/dL Final MPA Chinle/Lambda Ratio Date Value Ref Range Status 08/19/2018 [...] in patient's severe chronic Rheumatoid Arthritis. His assurance analyst has switched him to Humira as he [...] methotrexate well, continues on sulfasalazine by his assurance analyst He is also on Entyvio by his assurance analyst. -Osteoporosis DXA August 19, 2018 Lowest T-score [...] to receive intermittent steroid therapy from his assurance analyst. Pharmacologic therapy is still indicated and recommended, [...] RA included in the risk factors. With rocket engine component mechanic systemic steroids FRAX scores would be higher). [...] Also receives labs per Primary care physician/ Online Marketing Coordinator Reviewed his labs Advised on phosph. rich diet -The patient's assurance analyst follows him for his UC, anemia and liver tests. He is on Entyvio and sulfasalazine per his Online Marketing Coordinator RA DMARD therapy: patient would like to [...] DMARDs needs to be adjusted to avoid fci use of nsaids and their risk factors and adverse effect. With escalation of treatment for his RA, options include either methotrexate dose increase if labs allow and well tolerated, or he may need to resume his anti-TNF medication (either Enbrel or Humira). With being on methotrexate, folate supplement is recommended. Reports taking folate He is on sulfasalazine per his assurance analyst and Entyvio for his IBD (He was prev. on Enbrel 25 mg sq twice a week, or may switch to Humira if his assurance analyst switched him to Humira TNF inhibitor therapy, [...] on sulfasalazine for his IBD per his assurance analyst RE OP med: Received Reclast infusion, 5 [...] disease. 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 fracture of femur with rocket engine component mechanic use of bisphosphonates/alendronate and anti-resorptive agents, there [...] wished to proceed. Previous orders -CONSULT TO TECHNICAL CABLE JOINTER -CONSULT TO PODIATRY Provided referral to OT for assistive devices, exercises to preserve left function Referral to hair spinner for foot/ankle deformities and callus care, inserts/braces/orthotics, [...] which included preparing to see the patient, ktbv-cu-lxmn patient care, completing clinical documentation, obtaining and/or [...] If he is able to find another retail customer service specialist closer to home or or if Dr. [...] multiple rheumatologists in this practice here at [place] who are also able to follow him, even if my schedule is fully booked. Portions of this note have been copied from my previous note and have been updated to reflect today's visit note June 06, 2025, all reflect my current medical decision making from date of this visit. The patient is following with his other physicians for his other paxtno problems. Recommendations to share with Primary care [...] is continuing his care with his local assurance analyst. Please see above discussion on recommendations. He will need regular labs for methotrexate and sulfasalazine monitoring. He will need a recheck CRP to ensure has improved Infection precautions are recommended while on immunosuppressive therapy (IMT) Folic acid/folate supplement is recommended while on methotrexate -He relayed you are managing his anemia and his assurance analyst is completing further evaluation. -His phosphorous was [...] longer prior and after. Please refer to [employer] Guidelines for up to [...] appropriate immunization recommended. -Continued follow up with assurance analyst for IBD management and monitoring for liver disease, as they deem necessary Thank you for allowing me to participate in the care of your patient. Darrian Fischer MD Jose L Lackey MD [address] [place], [place] [address] We reassured patient that we have been sending letters and copy of my visit note after each of his office visits. They have been faxed to his Primary care physician office Today, I have also asked my medical front desk coordinator to mail this visit note and letter to his Primary care physician office mailing address. Medical Decision Making: Problems: Moderate: 2+ stable chronic illnesses Data: Unique source(s) for external note(s) reviewed: 3+ Unique test result(s) reviewed: 3+ Discussed management or test w/ external physician/QHCP/source Medical Decision Making Level: 4 - Moderate [facility] History of Present illness Narrative* Blayne Denis RT(R) - 06/06/2025 7:45 AM EDT Radiology Service Progress Note PATIENT NAME: Jam [...] PATIENT PRESENTS WITH AN IMPLANTABLE OR ATTACHED SKI PATROLLER: No RADIOLOGY DEPARTMENT: Bone Density PERIPHERAL IV DATA: Not applicable SIGNED BY: CHEMO Ching) June 06, 2025 8:12 AM documented in this encounterZ[facility]ville [facility]07-[facility]25 NoteHNO ID: [id number] Author: BLAYNE DENIS RT(R) Service: ? Author [...] PATIENT PRESENTS WITH AN IMPLANTABLE OR ATTACHED SKI PATROLLER: No RADIOLOGY DEPARTMENT: Bone Density PERIPHERAL IV DATA: Not applicable SIGNED BY: CHEMO Ching) June 06, 2025 8:12 [facility]07-16-2025 NoteNurse Consultation Note Assessment/Plan patient tolerated agile capsule [...] 05/03/2015 Recorded hepatitis A-hepatitis B vaccine 05/03/2015 [facility] NoteProgress Note-Physician Patient: JAM TOSCANO Age: 60 years Sex: Male : 1965 Associated Diagnoses: None Author: Kody Ramos Jr., DO Postoperative Information Postoperative disposition: Postoperative disposition: Home. Optimetrix number: Optimetrix number [id number]. Anesthetic utilized: General. Physical Examination Vital Signs [...] to Ambulatory Surgery Unit, and To home ).[facility]Comment on above:Result Comment: Electronically Signed By: Kody Ramos Jr., DO\.br\Date and Time Signed: 05/11/25 12:13 [id number] NotePatient Education - Text Colonoscopy Care After Surgery Please read the instructions outlined below and refer to this sheet in the next few weeks. These discharge instructions provide you with general information on caring for yourself after you leave thespital. Your doctor may also give you specific [...] Heavy or fried foods are harder to digestand may make you feel nauseated (sick to [...] activities are safe for you. ??? Take zbiy-jab-fizxxlg and prescription medicines only as told by [...] a sore throat, mild stomach discomfort, bloating, andnausea. ??? If you were given a sedative [...] provider. Document Revised: 02/11/2023 Document Reviewed: 02/11/2023 [employer] Patient Education ? 2023 [employer] Peptic Ulcer A peptic ulcer is [...] called Helicobacter pylori or (more content not included)...[facility] Note Endoscopic Procedure Report - Other Patient: JAM TOSCANO Age: 60 years Sex: Male : 1965 Associated Diagnoses: None Author: Luis Antonio García MD Pre-Procedure Procedure Date 05/11/2025 09:39:00 . Procedure Type: Colonoscopy with removal of tumor(s), polyp(s), or other lesion(s) by snare technique, biopsy. Procedure provider Performed by Luis Antonio García MD. Current history and physical Documented on chart. Colonoscopy ([id number]) on 06/03/2024 at 59 Years. Esophagogastroduodenoscopy (601490737) on 06/03/2024 at 59 Years. Colonoscopy ([id number]) on 02/26/2024 at 58 Years. Colonoscopy ([id number]) on 03/23/2023 at 57 Years. Cystoscopy (20070699) on 02/04/2021 at 55 Years. Colonoscopy (205304226). right hip replacement (914085823). replacement on both knees (877194828).. Past Medical History Resolved Extreme obesity ([id number]): Resolved. Ulcerative colitis (298151177): Resolved.. Family History Asthma Mother Hypertension Mother Heart disease Mother Arthritis Brother Stroke Father High cholesterol Mother . Procedure History Colonoscopy ([id number]) on 06/03/2024 at 59 Years. Esophagogastroduodenoscopy (291973198) on 06/03/2024 at 59 Years. Colonoscopy (986905100) on 02/26/2024 at 58 Years. Colonoscopy (897156373) on 03/23/2023 at 57 Years. Cystoscopy (71288963) on 02/04/2021 at 55 Years. Colonoscopy (872100525). right hip replacement (717944533). replacement on both knees (940593475).. Colorectal neoplasm risk assessment High risk UC. [...] the left lateral decubitus position. Endoscope type usedwas an adult-size. The endoscope was lubricated then [...] Normal examined terminal ileum Images Procedure images: Rec1_hd_video_2024__T08_51_19_042.jpg Rec1_hd_video_2024__T08_51_13_133.jpg Rec1_hd_video_2024__T08_49_40_945.jpg Rec1_hd_video_2024__T08_49_38_294.jpg Rec1_hd_video_2024__T08_49_18_184.jpg Rec1_hd_video__T08_48_29_082.jpg Rec1_hd_video_2024__T08_46_41_422.jpg Rec1_hd_video__T08_46_34_729.jpg (more content not included)...[facility]Comment on above:Result Comment: Electronically Signed By: Ricky ROBLERO, Luis Antonio Tiwari\.br\Date and Time Signed: 05/11/25 09:42 EDTOther Comment: Missing Attachment - attachment storage system not supported [id number] Can be viewed in source system Missing Attachment - attachment storage system not supported 1573740 Can be viewed in source systemMissing Attachment - attachment storage system not supported 5977082 Can be viewed in source systemMissing Attachment - attachment storage system not supported 8481452 Can be viewed in source systemMissing Attachment - attachment storage system not supported 3369864 Can be viewed in source systemMissing Attachment - attachment storage system not supported 7889122 Can be viewed in source systemMissing Attachment - attachment storage system not supported 6080506 Can be viewed in source systemMissing Attachment - attachment storage system not supported 8515598 Can be viewed in source system Missing Attachment - attachment storage system not supported 7451334 Can be viewed in source systemMissing Attachment - attachment storage system not supported 9236253 Can be viewed in source systemMissing Attachment - attachment storage system not supported 0273396 Can be viewed in source systemMissing Attachment - attachment storage system not supported 6410664 Can be viewed in source systemMissing Attachment - attachment storage system not supported 0438496 Can be viewed in source systemMissing Attachment - attachment storage system not supported 6088692 Can be viewed in source systemMissing Attachment - attachment storage system not supported 3402013 Can be viewed in source system Missing Attachment - attachment storage system not supported 7879215 Can be viewed in source systemMissing Attachment - attachment storage system not supported 2459627 Can be viewed in source systemMissing Attachment - attachment storage system not supported 3716300 Can be viewed in source systemMissing Attachment - attachment storage system not supported 8653221 Can be viewed in source systemMissing Attachment - attachment storage system not supported 6817721 Can be viewed in source systemMissing Attachment - attachment storage system not supported 6757525 Can be viewed in source systemMissing Attachment - attachment storage system not supported 7973306 Can be viewed in source system Missing Attachment - attachment storage system not supported 1422089 Can be viewed in source systemMissing Attachment - attachment storage system not supported 1362349 Can be viewed in source systemMissing Attachment - attachment storage system not supported 7045109 Can be viewed in source systemMissing Attachment - attachment storage system not supported 6764881 Can be viewed in source systemMissing Attachment - attachment storage system not supported 8460677 Can be viewed in source systemMissing Attachment - attachment storage system not supported 1932157 Can be viewed in source systemMissing Attachment - attachment storage system not supported 2196337 Can be viewed in source system Missing Attachment - attachment storage system not supported 9463136 Can be viewed in source systemMissing Attachment - attachment storage system not supported 0161299 Can be viewed in source systemMissing Attachment - attachment storage system not supported 4451340 Can be viewed in source systemMissing Attachment - attachment storage system not supported 2456314 Can be viewed in source systemMissing Attachment - attachment storage system not supported 2138428 Can be viewed in source systemMissing Attachment - attachment storage system not supported 4098705 Can be viewed in source [id number] Note Endoscopic Procedure Report - Other Patient: [...] safety measures. Endoscope type used was an adult- size, introduced orally, advanced to the 3rd portion [...] 3. Normal examined duodenum Images Procedure images: Rec1_hd_video_2024__T08_21_56_057.jpg Rec1_hd_video_2024__T08_21_57_831.jpg Rec1_hd_video_2024__T08_21_48_458.jpg Rec1_hd_video_2024__26T08_21_07_359.jpg Rec1_hd_video_2024__26T08_21_01_838.jpg Rec1_hd_video_2024__T08_20_50_569.jpg Rec1_hd_video_2024__26T08_20_40_359.jpg Rec1_hd_video_2024__26T08_20_37_996.jpg Rec1_hd_video_2024__26T08_20_33_227.jpg Rec1_hd_video_2024__26T08_20_20_439.jpg Rec1_hd_video_2024__26T08_20_03_318.jpg . Post-Procedure Complications: none. Estimated blood loss: [...] follow in GI clinic in 1-2 after dischargeA[facility] HospitalComment on above:Result Comment: Electronically Signed By: Ricky ROBLERO, Salmon Talal\.br\Date and Time Signed: 05/11/25 09:10 EDTOther Comment: Missing Attachment - attachment storage system not supported [id number] Can be viewed in source system Missing Attachment - attachment storage system not supported 1502670 Can be viewed in source systemMissing Attachment - attachment storage system not supported 2301925 Can be viewed in source systemMissing Attachment - attachment storage system not supported 2016689 Can be viewed in source systemMissing Attachment - attachment storage system not supported 0032281 Can be viewed in source systemMissing Attachment - attachment storage system not supported 4461433 Can be viewed in source systemMissing Attachment - attachment storage system not supported 8728934 Can be viewed in source systemMissing Attachment - attachment storage system not supported 6823578 Can be viewed in source system Missing Attachment - attachment storage system not supported 8373363 Can be viewed in source systemMissing Attachment - attachment storage system not supported 9765280 Can be viewed in source systemMissing Attachment - attachment storage system not supported 7275350 Can be viewed in source [phone] NoteHistory and Physical Patient: JAM TOSCANO Age: 60 [...] All Problems Food insecurity / SNOMED CT 2879724526 / Possible Problem added automatically by Discern Expert based on clinical documentation Financial problem / SNOMED CT 021805690 / Possible Problem added automatically by Discern Expert based on clinical documentation Unable to afford medication / SNOMED CT 411025118140390 / Possible Problem added automatically by Discern Expert based on clinical documentation Hyperlipemia / SNOMED CT 74001907 / Confirmed Rectal bleed / SNOMED CT 570879713 / Confirmed Heartburn / SNOMED CT 64293513 / Confirmed Ulcerative colitis, universal / SNOMED CT 4606640957 / Confirmed Bladder stone / SNOMED CT 765846066 / Confirmed BPH with urinary obstruction / SNOMED CT 9443542834 / Confirmed Incomplete bladder emptying / SNOMED CT 516307126 / Confirmed Gross hematuria / SNOMED CT 861622908 / Confirmed Kidney stones / SNOMED CT 901416146 / Confirmed Bladder mass / SNOMED CT 7944416342 / Confirmed Urethral stone / SNOMED CT 85968087 / Confirmed Prostate calculus / SNOMED CT 905245727 / Confirmed Continuous severe abdominal pain / SNOMED CT 30325346 / Confirmed Hematochezia / SNOMED CT 3433702576 / Confirmed Acute diarrhea / SNOMED CT 7566863591 / Confirmed [place] ulcerative colitis / SNOMED CT 3257268322 / Confirmed Adenomatous colon polyp / SNOMED CT 9339979689 / Confirmed History of colon polyps / SNOMED CT 6195179448 / Confirmed Elevated alkaline phosphatase level / SNOMED CT 6264257389 / Confirmed Anemia / SNOMED CT 413770592 / Confirmed Arthritis / SNOMED CT 3966561 / Confirmed Multiple renal cysts / SNOMED CT 635755872 / Confirmed Ureteral stone with hydronephrosis / SNOMED CT 9667678761 / Confirmed Screening PSA (prostate specific antigen) / SNOMED CT 466347920 / Confirmed Feeling of incomplete bladder emptying / SNOMED CT 4052331608 / Confirmed Pyuria / SNOMED CT 0021106 / Confirmed Histories Past Medical History: Resolved Extreme obesity ([id number]): Resolved. Ulcerative colitis (864749772): Resolved. Family History: Brother Arthritis Father Stroke Mother Asthma High cholesterol Hypertension Heart disease Procedure history: Colonoscopy (293752150) on 06/03/2024 at 59 Years. Esophagogastroduodenoscopy (155842911) on 06/03/2024 at 59 Years. Colonoscopy (724321049) on 02/26/2024 at 58 Years. Colonoscopy (399040098) on 03/23/2023 at 57 Years. Cystoscopy (87354929) on 02/04/2021 at 55 Years. Colonoscopy (152251014). right hip replacement (131546540). replacement on both knees (452406425). Social History Social & Psychosocial Habits Alcohol 12/14/2024 Risk Assessment: Denies Alcohol Use 12/14/2024 Use: Never Comment: denies - 01/14/2023 08:52 - Tamiko Garcia I Exercise 12/14/2024 R (more content not included)...[facility]Comment on above:Result Comment: Electronically Signed By: Ricky ROBLERO, Luis Antonio Tiwari\.sania\Date and Time Signed: 05/11/25 09:09 [id number] NoteProgress Note-Physician Patient: JAM TOSCANO Age: 60 years [...] All Problems Acute diarrhea / SNOMED CT 4053277534 / Confirmed Adenomatous colon polyp / SNOMED CT 8168867147 / Confirmed Anemia / SNOMED CT 582850714 / Confirmed Arthritis / SNOMED CT 0913274 / Confirmed Bladder mass / SNOMED CT 3449224576 / Confirmed Bladder stone / SNOMED CT 918832983 / Confirmed BPH with urinary obstruction / SNOMED CT 2532838230 / Confirmed Continuous severe abdominal pain / SNOMED CT 04670741 / Confirmed Elevated alkaline phosphatase level / SNOMED CT 8792766990 / Confirmed Feeling of incomplete bladder emptying / SNOMED CT 9895847638 / Confirmed Financial problem / SNOMED CT 875192786 / Possible Problem added automatically by Discern Expert based on clinical documentation Food insecurity / SNOMED CT 6736347575 / Possible Problem added automatically by Discern Expert based on clinical documentation Gross hematuria / SNOMED CT 325268839 / Confirmed Heartburn / SNOMED CT 97060146 / Confirmed Hematochezia / SNOMED CT 3736505001 / Confirmed History of colon polyps / SNOMED CT 8565291461 / Confirmed Hyperlipemia / SNOMED CT 79411119 / Confirmed Incomplete bladder emptying / SNOMED CT 248685099 / Confirmed Kidney stones / SNOMED CT 412595004 / Confirmed Multiple renal cysts / SNOMED CT 425023860 / Confirmed Prostate calculus / SNOMED CT 421212308 / Confirmed Pyuria / SNOMED CT 2198160 / Confirmed Rectal bleed / SNOMED CT 841710484 / Confirmed Screening PSA (prostate specific antigen) / SNOMED CT 162089078 / Confirmed Ulcerative colitis, universal / SNOMED CT 5932678457 / Confirmed Unable to afford medication / SNOMED CT 761445215780461 / Possible Problem added automatically by Discern Expert based on clinical documentation [place] ulcerative colitis / SNOMED CT 4324238172 / Confirmed Ureteral stone with hydronephrosis / SNOMED CT 8724618720 / Confirmed Urethral stone / SNOMED CT 20258595 / Confirmed Resolved: Extreme obesity / SNOMED CT [id number] Resolved: Ulcerative colitis / SNOMED CT 506866500 Canceled: Ulcerative colitis / SNOMED CT 699288408 Histories Past Medical History: Resolved Extreme obesity ([id number]): Resolved. Ulcerative colitis (296336727): Resolve (more content not included)...[facility]Comment on above:Result Comment: Electronically Signed By: Kody Ramos Jr., DO.sania\Date and Time Signed: 05/11/25 08:36 [id number] History of Present illness Narrative* Jr. Bradly Veliz DO - 05/03/2025 10:00 AM EDT [...] 05/03/25 XRAY (L) KNEE 05/03/24, 04/21/23 IN [facility] XRAY AP B/L KNEES 06/17/22, 04/01/22, [...] TODAY, 05/03/25 XRAY (R) KNEE 06/16/23 IN [facility] XRAY (R) KNEE 02/26/21 IN [facility] XRAY [...] Use: Not At Risk (01/24/2020) [facility] Frequency of Alcohol Consumption: Never [...] for requiring urgent evaluation. documented in this encounterResearch Medical CenterFkdejctvai36-11-1721 History of Present illness Narrative* Jr. Bradly Veliz DO - 03/29/2025 10:00 AM EDT Images from the original [...] Use: Not At Risk (01/24/2020) Received [facility] Frequency of Alcohol Consumption: Never [...] exam and symptoms today at length. He iscompletely asymptomatic today very pleased with his progress as MRI. We'll see him back in one yearfor his hip. We'll see him back in 1 month for his bilateral knee replacement x-rays. Questions answered in laymen terms at the bedside. The diagnosis, home exercise plan and any ongoing restrictions/ recommendations reviewed. If unable to be reached in office, I recommend evaluation at nearest Emergency Room if any symptoms worsened or new symptoms develop for requiring urgent evaluation. documented in this encounterResearch Medical [id number] Instructions* Patient Instructions* Darrian Dubon MD - 02/14/2025 7:41 AM EDT -PLEASE NOTE THAT WE REVIEW ALL YOUR TEST RESULTS AT YOUR NEXT FOLLOW UP VISIT WITH YOU. IF ANY ABNORMAL LAB REQUIRES SOONER ATTENTION, WE WILL CONTACT YOU. -If you have signed up on [employer], we will release your test results through [employer]. I wish you the best of health [...] sure you follow these instructions as it affectsthe results and interpretation. The CTX is a [...] track your nutrition and calcium intake on [email or web address] This provides macro and micronutrient intake and requirements. - You can track your calcium intake on [employer] or any other calcium tracker of your [...] youtube and copy and paste this link: https://youtu.be/[email or web address] This is done by a Physical Medicine and Rehab doctor who is a assistant professor of theater in [employer]. She completed a PhD at the [employer]. I hope you find it helpful. Please take precautions and start gradual when starting a new exercise program. Another reference includes this one: -Dominique RM, Peg Desai J, Ne RL, Agustin SF, Judy EW. Exercise for the prevention of osteoporosisin postmenopausal women: an evidence-based guide to the optimal prescription. Thor J Check And Transfer Beader. 2019 Jan-Feb;23(2):170-180. doi: 10.1016/j.bjpt.2018.11.011. Epub 2017Oct 07. PMID: 71768446; PMCID: DZX0392640. - Stress can lead to bone loss. [...] hazelnuts, legumes, soybeans and other beans) - Fields (potatoes, avocados, almonds, peanuts) - Chromium (broccoli, [...] health? Ther Adv Musculoskelet Dis. 2010;3(6):293-300. doi: 10.1177/4466470P30128264. PMID: 81842615; PMCID: PFV8111205. -SUDHEER Carrillo., NYLA Dodson., GHAZAL Flores. et al. Soy isoflavone intake inhibits bone resorption and stimulates bone formation in menopausal women: meta-analysis of randomized controlled trials. Eur J Clin Nutr 62, 155-161 (2007). https://doi.org/10.1038/sj.ejcn.0798489 -Clyde Rosa, Trisha Lara, Harry De Leon. et al. Isoflavone intervention and its impact on bone mineral density in postmenopausal women: a systematic review and meta-analysis of randomized controlled trials. Osteoporos Int (2022). https://doi.org/10.1007/y27685-913-79938-n -Jack Finch, Trisha Lara, Andrez Grant. et al. Effects of isoflavone interventions on bone mineral density in postmenopausal women: a systematic review and meta-analysis of randomized controlled trials. Osteoporos Int 31, 5153-6571 (2020). https://doi.org/10.1007/q70513-931-46776-k - Benefits of consuming soy in whole foods are listed in this article at the PCRM website: https://www.pcrm.org/good-nutrition/nutrition-information/qeq-hzz-twlazx - Prunes have been reported to help with bone density and inflammation, and are also beneficial forthe gut microbiome and constipation. -The Prune Study article: Perrin, Sivakumar DE LEONA, Jordy NI, Edouard H, Flor KJ, Trey C, Praveena MG, Ara CH, Stewart C. Prunes preserve hip bone mineral density in a 12-month randomized controlled trial in postmenopausal women: the Prune Study. Am J Clin Nutr. 2021 6;116(4):897-910. doi: 10.1093/ajcn/ahst852. PMID: 11762309. -Benefit to bone density and inflammation: Hebert BishopJ, Adame MJ, Glory HL, Sivakumar DE LEONA, Trey CJ. The Role of Prunes in Modulating Inflammatory Pathways to Improve Bone Health in Postmenopausal Women. Adv Nutr. 2021Aug 17;13(5):1476- 1492. doi: 10.1093/advances/rjks751. PMID: 09263241; PMCID: OXY4907127. - Information on Vitamin K2: more recently [...] foods, with the exception of Natto(a traditional Palestinian food made from fermented soybeans) has high [...] of these foods, please consult with your Humanities Coordinator or Physician first. Review of Osteoporosis medications [...] femur. You can read more at these [facility] web links: https://my.[facility]/health/treatments/56589-zeupaaocmctkzwc For Fosamax/alendronate: https://my.[facility].org/health/drugs/39558-lgdtajirmty-awcncyo For Actonel/risedronate: https://my.[facility].org/health/drugs/19935-lafgsbxtbxy-vsag-lxlvsubZyh Reclast/zoledronic acid: https://my.[facility].org/health/drugs/72407-kdvqyzomhb-tkly-fsvkbd rcf-ioggzj-xqkkaux-osteoporosis -Subcutaneous Prolia: this is one injection every 6 months, given by the nurse in the office. This medication is given fci, indefinitely. Prolia should not be discontinued without [...] looked into transition therapy. Recent study from MR Barbour al, 04/11/2020 (PMID: 13494180.The study is ongoing, clinicaltrials.gov; [id number]), reported one infusion of IV Reclast did [...] femur. You can read more at these [facility] web links: https://[employer].org/health/drugs/78630-skajkocdq-mihokwltg Medications that build bone density and prevent [...] etc... You can read more at these [facility] web links: For Forteo/teriparatide: https://[employer]Qranio.org/health/drugs/01303-imvciulkfifi-vohhydibm For Tymlos/abaloparatide: https://[employer]Qranio.org/health/drugs/72489-bcvmofrjpyyfe-dlcvyjvhd Medication that both prevents bone loss and [...] initiated in patients who have had an IN orstroke in the preceding year or those considered high risk. We may need a clearance from a Length Control Tester prior to proceeding with this medication in patients who have a cardiovascular disease history. This is only prescribed for 1 year and then needs to be followed by anti- resorptive therapy, according to recommendations. You can read more at these [facility] web links: For Evenity/romosozumab: https://my.[facility].org/health/drugs/75836-ryhjipdabqm-jhnhwrorl Other less potent Osteoporosis medications, such as [...] available medications were provided: Link to the [place] [employer] website at: https://www.rheumatology.org/I-Am-A/Patient -Caregiver/Diseases-Conditions/Osteoporosis Link to the [facility] web link at: On Osteoporosis: https://my.[facility].org/health/diseases/4443-osteoporosis On Osteopenia: https://my.[facility].org/health/diseases/65077-rtenbgfduh - Additional information on Bone Health and [...] Osteoporosis Foundation) http://www.osteo.org/osteolinks.asp National Institutes of Health: 9-075-297-BONE The Calcium Information Center: Non-Dairy, Plant based Milk, can contain in1 glass up to 450 mg of calcium (300 to 450 mg) Exampled include Oat Milk, Flax Milk, [place] Milk, Cashew Milk, Soy Milk, Peas Milk Examples of Food Sources of Calcium from NIH Food Milligrams (mg) per serving Percent DV* Soymilk, calcium-fortified, 8 ounces 299 30 [place] juice, calcium-fortified, 6 ounces 261 26 Tofu, firm, made with calcium sulfate, cup* 253 25 Tofu, soft, made with calcium sulfate, cup* 138 14 Qgwkj-oq-pwv cereal, calcium-fortified, 1 cup 100-1,000 10-100 Turnip greens, fresh, boiled, cup 99 10 Kale, raw, chopped, 1 cup 100 10 Kale, fresh, cooked, 1 cup 94 9 Israeli cabbage, bok marin, raw, shredded, 1 cup 74 7 Bread, white, 1 slice 73 7 Tortilla, corn, ugwjs-nw-iaym/marshall, one 6 diameter 46 5 Tortilla, flour, lfezg-qi-zaye/marshall, one 6 diameter 32 3 Bread, whole-wheat, 1 slice 30 3 Broccoli, raw, cup 21 2 * DV = Daily Value. DVs were developed by the U.S. Food and Drug Administration to help consumers compare the nutrient contents among products within the context of a total daily diet. The U.S. Department of Agriculture s (USDA s) Nutrient Database Web site lists the nutrient contentof many foods and provides comprehensive list of [...] daily with a meal; Certain patients require 1921-4994 international units daily and in patients deficient [...] bones. Studies show approximately 50% of [place] men and women are vitamin D deficient [...] of falling. Additional Information is available from: [facility] Osteoporosis Information: https://.[facility].org/departments/orthopaedics-r heumatology/depts/osteoporosis-metabolic The Bone Health and Osteoporosis Foundation (formerly the National Osteoporosis Foundation) : https://www.bonehealthandosteoporosis.org International Osteoporosis Foundation: https://www.osteoporosis.foundation http://ods.od.nih.gov/factsheets/vitamind.asp National Institutes of Health: 2-807-548-BONE The Calcium Information [place]: I recommend following a healthy lifestyle. You [...] and maintaining healthy weight. with healthy BMI to 25, and ideally around 22-23 when possible. For Osteoporosis and low bone density, it is important to keep a BMI at 22 or above and ensure good strength training exercise routine. - You can track your nutrition and calcium intake on www.OKCoinometer.GameGenetics This provides macro and micronutrient intake and [...] that features the Whole Plant Based diet, [place] over knives (see video online and visit website). Another movie that was recently released is: Eating You Alive (you can find it at [employer]) and The [employer] ChangeJin-Magic movie Dr. Fauzia Ansari is a [facility] physician who has done research and published books, is an expert in Whole Plant based diet for prevention and reversal of heart disease. His website is [employer]. His research highlights the benefits of the Whole food plant based diet in reversingand preventing heart disease. Mrs. Cookie Ansari (his ) has a cookbook with many recipes on whole plant based food: The Prevent and Reverse Heart Disease cookbook. Cookie and Yamile Coty have a cooking show on YouTube called: Plant-Based with Yamile Coty and Cookie Ansari. 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 Dr. Rock Velazco, has a website and free angélica to help get started on a whole plant based diet, at www.pcrm.org and you can log on for free for his 21-Day Kickstart with meals and recipes to follow for21 days. There is also a free angélica for that. He has multiple free videos and YouTube, for example: ht tps://youSunlight Foundationu.be/eubYkeoO2o0 , https://youSunlight Foundationu.be/QwENKijgi3g He has written multiple books, including Power Quellan for the Brain, The Cheese Trap, Dr. oRck Velazco's Program for Reversing Diabetes, Your Body in Balance You can also watch YouTube channel : The Doc & Doll Wig Hackler Dr. Anthony Carlson has shown the benefit of a starch based whole food plant based diet to his Rheumatoid Arthritis patients, as well as patient with diabetes II, hypertension, obesity, multiple sclerosis, heart disease, acne, and other, his website: www.debra.GameGenetics Dr. Yayo Allred is a renowned formulation scientist, who has studied and researched the benefits of the Whole plant based diet. He has also researched the adverse effects of animal proteins on health. He presents many of his research findings in his book The [place] study. Dr. Gerber Becker has completed many research trials proving the reversal of diseases, such as heart disease and early prostate cancer, with healthy lifestyle and the Whole Plant based diet. Dr. Gerber Becker website is: www.carmen[employer].GameGenetics His new book: Undo It, has evidence based information and guide to following this healthy lifestyle. Dr. Cody Dillon has dedicated a website and additional time to reviewing all food related articles and research and presents them in his power point presentation and on his website at: nutritionfacts.org which is all free. Dr. Dillon has multiple free videos and YouTube, for example https://youSunlight Foundationu.be/aSgNkhgVtks and https://[employer].Love Home Swap/lXXXygDRyBU. He has written multiple books including: How Not To and How Not To Diet He is now working on his next book: How Not To Age Dr. Danitza Dash (from the [facility]), has articles on the following website: [employer].GameGenetics For additional ideas on recipes, you could find additional information on practical to follow recipes by reading or watching online and YouTube such as: Chef BELLE, Cooking With Plants, The Vegan Corner(recipes from an Libyan Doll Wig Hackler), The Whole Foods Plant Based Cooking Show and visiting the provided websites for additional information on the whole plant based benefit and cooking recipes. You can also consider watching the vlogs of some of the plant based Athletes such as Fausto Ewing Derek on Audience. You can find very good recipes for [...] Dr. Jenny Degroot Lifestyle Medicine (is a Length Control Tester and Lifestyle Medicine Physician) -Sometimes it helps to start with a simple diet of potatoes, that Dr. Carlson calls Yarelis Mini. You can learn more about that in his website: www.PushToTest This is the website for Yarelis Butler pdf : https://www.PushToTest/wp-content/uploads/ uk-Ttrf_Jjhomxd_Cllgk_Whgmxyl-3.pdf You can also read more on Dr. Carlson's website - When you goal is to lose weight, it is important to listen to your hunger cues. Don't eat until you are stuffed. As soon as you feel you are no longer hungry, stop eating. There is a Palestinian saying that says Tammie Vega, meaning eat until you are 80% full. I say avoideating past 80% of your stomach fullness. This originated from the city of [facility], which is one ofthe sites reported in the Blue Animating Touch book, one of the highest cities in the world for having the most centenarians. Remember your stomach needs space and capacity for proper digestion of your food. Like a fast food crew member or a pizza driver, they have a limit for proper function, and should not be filled to the top. You can read more about that from the [facility] article Don t Eat Until You re Full ? Instead, Mind Your Tammie [place] , at https://health.[facility].org/gyqz-moh-xdmka-lhshz-bjwr-u ccmdkz-ddrk-klrd-xbrx-xakvl-pn-point/ Most plants contain proteins and all essential [...] you will need to consult with a assurance analyst to have further evaluation to exclude Celiac [...] - Gentle Yoga Anyone Can Do Anywhere www.LiquidSpace.GameGenetics/yoga Also on youtube: yoga with Karlie For women, especially after menopause, strength training is important. You can read more on that from Clare Morley, PhD at her website https://www.[employer]iantLogic and YouTube videos. If you are a beginner, it is best to start with a physical therapist or personal injury paralegal. There are also several Aps that offer virtual personal training 3- Good Sleep (poor sleep impacts everything, recommended sleep is 7 to 8 hrs. a night). Certain people may need more sleep, depending on their age and other conditions. Meditation and relaxation techniques have shown to help with improving sleep. Try to be consistent with your sleep. You can find more at the [facility] Website on : https://my.[facility].org/departments/wellness/store/go-well#sleep-tab 4- Stress management, be happy, laugh often [...] Calm Insight Timer Meditation Stress Free Now ([facility]). You can find more resources at the [facility] website at : https://my.[facility].org/departments/wellness/store/go-well#pyebsr-egjy-qv b There are many free youtube videos on guided meditation as well For Breathing techniques: You can watch John Carlisle and learn the breathing technique and its benefits by watching the following YouTube: https://[employer].be/9Bv9B-JSm57?si=-Ebcfx6BpfTWAcWN. Learning about your awareness/spiritual being, is very [...] work with a psychotherapist or behavioral health coach professional athletes. When having a psychiatric condition, it is [...] based diet, it is recommended to take JxwrwvoW62, sublingual, dissolve under the tongue, take once daily. Vitamin B12 is available over the counter, dose could be 2500 mcg, and can be taken once a week, and if your blood levels are low, you mayneed to take it once daily or a higher dose. Raw: Garlic, Cilantro, [place] nuts, Pumpkin seeds, [place] seeds and Flax seed powder have been reported to help with certain metal detoxification such as mercury. [place]-3 plant based rich foods are good anti-inflammatory [...] the Whole Plant Based Diet, by watching [place] over ConnectFu movie and then review website. There are many other resources and educational information on the Whole plant based diet on the Internet and documentaries. There are other resources for wellness that you can also benefit from, such as the [facility] website, [facility].org and includes Plant based and Mediterranean diet, yoga and meditation. Please avoid all dairy products. You could use non-dairy milk such as Flax milk, Cashew milk, [place] milk, Rice milk, Oat milk or Hemp [...] below, just add the ingredients to your pizza driver and blend: - Probably the healthiest smoothie is one that contains mostly green leafy vegetables (especially containing kale), some berries, flax seed and water. This might not return to factory clerk to be sweet. You can addone or two pitted dates or a frozen banana for natural sweetness. Examples of healthy green smoothies, pack your pizza driver (at least half way to 3/4) with a mix of green leafy veggies, then top your pizza driver with fruits (such as banana or frozen raul or pineapple, peaches, apricots, apples, grapes), a tablespoon of flax or david seeds, then add water or unsweetened coconut water and blend until smooth. You can also add turmeric in this recipe. Do not only use spinach as they tend to be high in oxalates and can be risk for kidney stones. The same with kenyan chards and beet leaves. If you don't [...] of your health and wellbeing. At the [facility], we work as a team for your care, along with Nurse Practitioners, PhysicianAssistants, Nurses and Medical Assistants. It is a privilege and honor to serve you. Thank you for choosing The [facility] for your healthcare. Sincerely, Darrian Dubon MD BONE MINERAL DENSITY PATIENT INSTRUCTIONS Bone mineral density testing measures the amount of calcium in certain parts of your bones. This information determines how strong your bones are. The test is used to detect osteoporosis, a disease in which the bone's mineral content and density are low, increasing a person's risk of fractures. Thelumbar spine (lower back) and the hip are [...] your usual activities immediately. [facility] History of Present illness Narrative* Darrian Dubon MD - 02/14/2025 7:20 AM EDT Images from the original note were not included. FOLLOW UP VISIT Patient's Name: Jam Toscano [address] [facility] [id number] PCP: Jose L Lackey MD [address] [place] [phone] Consult Requested by: Jose L Lackey MD [address] [place], [place] [id number] Other physicians: Online Marketing Coordinator prev. Nel Lebron MD (his prev. assurance analyst left- Ronald Brown MD) ; Now following with Dr. Luis Antonio García Accompanied by: self Interim history: Mr. Toscano is a very nice 59 y.o. gentleman here for f/u visit for Rheumatoid Arthritis and Osteoporosis He follows with IBD, UC, on Entyvio and sulfasalazine; [facility] had liver US and fibroscan, told no fatty liver He is no longer on anti-TNF therapy. States his PCP is treating his anemia with iron, was on supplement and switched to IV. He is not aware of bleeding, denies BRBPR and denies melena. He follows with Online Marketing Coordinator for his UC. [facility] has scopes this summer by his assurance analyst. He is following with Orthopedics for his osteoarthroses and non-inflammatory joint pains. He has a chronic rotator cuff tear and extensive bilateral glenohumeral degenerative disease. His s/p b/l TKRand rt THR. Hissed rate was elevated at 79 04/2024 at time of his pneumonia. He continues on sulfasalazine and Entyvio by his assurance analyst. He does not describe RA related symptoms No jt pains or swelling outside of the LLE from TKR Denies rheum nodules No stiffness He is on sulfasalazine per assurance analyst for his UC and this has been controlling his RA He is pleased with his treatment regimen He also states that his IBD is well controlled, states told is in remission, on Entyvio Doing exercise and working with personal injury paralegal at the gym and will be going [...] in IBD and is following with local assurance analyst for that. Has been on Humira since Sep 2020 (started with 80 mg loading dose and since has been on 40 mg every 2 wks) He was pleased with Enbrel response to his RA and later was switched to Humira, reports has similarbenefit and is pleased with response. His assurance analyst switched him to Humira for optimal mgt of IBD and he feels this has helped his IBD better. Reports still gets 8 BM's a day, does not have BM at night, does not have to wake up from sleep. Has been following with his assurance analyst for his UC Had colonoscopy 11/22/2021 with reported marked improvement in asc/transv/desc colon and severe active in rectum, histopath with active colitis with erosions. States Dr. Lebron has started him on rectalenemas. Recent colonoscopy with reported active colitis. He tells me that he continues to have multiple BM's; His assurance analyst prescribed pred. course, completed recently. No jt [...] us, he is on Humira per his Online Marketing Coordinator He is off Enbrel, was switched to Humira by his assurance analyst. (previously was on Enbrel 25 mg twice a wk and has been in remission since on Enbrel and very pleased with his treatment regimen) He is on Humira 40 mg every 2 wks by his Online Marketing Coordinator He is on sulfasalazine, Humira and mesalamine enemas per his assurance analyst I have reviewed benefits of a whole food plant based diet He consumes dairy, cheese, sausage, hamburger. I have advised him on avoiding meats and dairy and reviewed reports and patient experience with flare of IBD and RA, as well as gastrointestinal dysbiosis. I advised him on a whole foods plant based diet. 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 Fur Stretcher: CODY Transcribe Date/Time: Feb 20 2021 9:52A [...] site where has fallen arch. Has seen Relationship Specialist in the remote past for the fallen arch, not recently. Feels gets stiff when not moving as much. Denies any injury or trauma. Denies any pain to me today States his assurance analyst has prescribed prednisone course due to IBD flare States after scope was told is flared. He is on sulfasalazine and budesonide and his assurance analyst and since has switched him from Enbrel [...] Alk phos isoenz: liver fraction; followed by assurance analyst He follows with his assurance analyst for hi elev alk phos and AST and for bld with stools, Dr Brown: and states he started him on iron supplement States Dr. Brown prescribed metronidazole, for reported diarrhea. States felt it made a difference. States he gave him enemas and told that is for his ulcerative colitis and prescr. sulfasalazine. In 2019, has also followed with his assurance analyst for blood with stools, and had flex sig and told he was inflamed from his Ulcerative colitis. States had colonosc and EGD in 2018 and [...] systems reviewed and are negative DXA Model: AllPeers W [id number] SITE SCANNED: Lumbar spine and left hip [...] were all normal. He follows with his assurance analyst for his ulcerative colitis and is on sulfasalazine. He was told by his assurance analyst to avoid sun exposure due to this med, had skin itching last summer. He had evaluation for elevated AST and alk phos. Alk phos has improved and AST has been borderline elevated. I have advised him to f/u with his assurance analyst for his elevated alk phos (liver fraction) States his assurance analyst did an US of his liver twice and was told was normal. He denies any alcohol consumption or acetaminophens. His isoenzyme indicated predom. of liver origin. The patient reports that his assurance analyst completed evaluation and told his liver is fine. His liver US was unremarkable . His anemia has resolved since his UC has been controlled. States saw his assurance analyst, Dr. Lebron, recently and states told him [...] and denies hematuria or dysuria. DXA Model: AllPeers W [id number] SITE SCANNED: Lumbar spine and left hip [...] reports doing well, states not bad . [facility] has seen a retail customer service specialist in the past, in [place], Dr. Whitfield. [...] 500mg q 6hrs. Reports benefit and his assurance analyst took him off the iron supplement as his iron was good. 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 Lackey Smoking: quit 2012 Alcohol as above IVDU: denies Industrial toxic exposures: denies FAMILY HISTORY: No family history on file. suspects his mother may have had RA Mother: CAD, CABG, COPD/emphysemia Father: passed from [facility] bother were smokers PERTINENT TESTS: Component [...] Negative Negative Ketones, Urine Negative Negative Specific Almond, Ur 1.005 - 1.030 1.008 Hemoglobin/Blood,Ur Negative 3+ (A) pH, Urine 4.5 - 8.0 6.0 Protein, Urine Negative mg/dL Negative Urobilinogen Normal Normal Nitrites Negative Negative Leukest Negative Negative Comments SEE COMMENT Urine Adan Comment SEE COMMENT WBC, Urine 0 - 5 /HPF 0-5 RBC, Urine 0 - 3 /HPF >25 (A) Sm Antibody <1.0 AI <0.2 SUPERVISOR PIG MACHINE Antibody <1.0 AI 1.2 (H) SSA Antibody <1.0 AI <0.2 SSB Antibody <1.0 AI <0.2 Centromere Ab <1.0 AI <0.2 Scleroderma Ab, IgG <1.0 AI <0.2 Milagro 1 Antibody <1.0 AI <0.2 Ribosomal SUPERVISOR PIG MACHINE <1.0 AI <0.2 Chromatin Antibody <1.0 AI [...] <12 Sm Antibody <1.0 AI <0.2 Ribosomal SUPERVISOR PIG MACHINE <1.0 AI <0.2 Chromatin Antibody <1.0 AI <0.2 SSA Antibody <1.0 AI <0.2 SSB Antibody <1.0 AI <0.2 SUPERVISOR PIG MACHINE Antibody <1.0 AI 1.2 Scleroderma Ab, IgG [...] Foot - Impression Only XR FOOT 3VIEW/SESAMOID/WT MELSISA Collected: 08/29/2015 10:56 AM (Final result) Impression: IMPRESSION: FINDINGS CONSISTENT WITH CHRONIC SEVERE RHEUMATOID ARTHRITIS. Fur Stretcher: [facility] Transcribe Date/Time: Aug 29 2015 12:56P ... Last XR Ankle - Impression Only XR ANKLE GENERAL 3V AP/LAT/OBL LT Exam End: 02/20/2021 8:42 AM (Final result) Impression: IMPRESSION: Arthritic changes demonstrating interval progression in this patient with known rheumatoid arthritis. Fur Stretcher: KETTYB Transcribe Date/Time: Feb 20 2021 9:52A [...] developed and its performance characteristics determined by [facility] [place] ([facility] It has not been cleared or approved by the FDA. -[facility] is regulated under CLIA as qualified to [...] 147 53 - 334 mg/dL Final MPA Chinle, Serum Date Value Ref Range Status 08/19/2018 1,020 534 - 1,267 mg/dL Final MPA Lambda, Serum Date Value Ref Range Status 08/19/2018 551 253 - 653 mg/dL Final MPA Chinle/Lambda Ratio Date Value Ref Range Status 08/19/2018 [...] , Gender: Male SCANNER INFORMATION: DXA Model: AllPeers W [id number] SITE SCANNED: Lumbar spine and left hip [...] www.nof.org International Society of Clinical Densitometry www.iscd.org Fur Stretcher: [id number] Transcribe Date/Time: Sep 23 2022 10:28A Dictated [...] Z79.899 On sulfasalazine therapy K51.00 Ulcerative pancolitis ([facility]) Comment: On SSZ and Entyvio [...] in patient's severe chronic Rheumatoid Arthritis. His assurance analyst has switched him to Humira as he [...] to receive intermittent steroid therapy from his assurance analyst. Pharmacologic therapy is still indicated and recommended, [...] Also receives labs per Primary care physician/ Online Marketing Coordinator Recheck DXA scheduled 05/2025 -The patient's assurance analyst follows him for his UC, anemia and liver tests. He is on Entyvio and sulfasalazine per his Online Marketing Coordinator RA med: none from rheum, doing well on sulfasalazine, prescribed by GI (He was prev. on Enbrel 25 mg sq twice a week, or may switch to Humira if his assurance analyst switched him to Humira TNF inhibitor therapy, [...] on sulfasalazine for his IBD per his assurance analyst OP med: Received Reclast infusion, 5 mg IV on 05/09/2024 well tolerated Further infusions will be determined based on recheck DXA and CTX, or if on systemic steroids. As previously discussed, his OP med of choice is IV Reclast Oral bisphosphonate contraindicated due to his IBD and gastrointestinal disease. Osteoporosis was likely due to previous fci steroid therapy by other physicians over the [...] atypical and subtroch. fracture of femur with fci use of bisphosphonates/alendronate and anti-resorptive agents, there [...] wished to proceed. Previous orders -CONSULT TO TECHNICAL CABLE JOINTER -CONSULT TO PODIATRY Provided referral to OT for assistive devices, exercises to preserve left function Referral to hair spinner for foot/ankle deformities and callus care, inserts/braces/orthotics, [...] spent included preparing to see the patient, vpsk-km-sfbc patient care, completing clinical documentation, obtaining and/or reviewing separately obtained history, performing a medically appropriate examination, counseling and educating the patient/family/caregiver, ordering medications, tests,or procedures, communicating with other HCPs (not separately [...] arthritis among patients diagnosed between 1994 and 2005.Journal of Internal Medicine 2010; 268(6): 578-585. -Infection precautions and age appropriate immunization recommended. -Continued follow up with assurance analyst for IBD management and monitoring for liver disease, as they deem necessary -I have advised on wellness and the whole plant based diet, as they have been shown to decrease risk of Rheumatoid Arthritis activity, auto-immune, inflammatory, certain gastrointestinal disorders, certain skin disorders, CV diseases, metabolic syndrome, diabetes, hyperlipidemia, HTN, cancer, obesity, macular degeneration, certain degenerative disorders, bone loss, osteoporosis and multiple otherchronic health disorders, and be in favor of general health. Thank you for allowing me to participate in the care of your patient. Darrian Fischer MD Jose L Lackey MD [address] [place] [address] Medical Decision Making: Problems: Moderate: 2+ stable chronic illnesses Data: Unique source(s) for external note(s) reviewed: 3+ Unique test result(s) reviewed: 3+ Medical Decision Making Level: 4 - Moderate documented in [facility] NoteHNO ID: [id number] Author: DARRIAN DUBON MD Service: ? Author Type: Physician Type: Progress Notes Filed: 02/20/2025 17:28 Note Text: FOLLOW UP VISIT Patient's Name: Jam Torres Rip [place] [id number] PCP: Jose L Lackey MD [address] [place] [phone] Consult Requested by: Jose L Lackey MD [address] [place], [place] [id number] Other physicians: Online Marketing Coordinator prev. Nel Lebron MD (his prev. assurance analyst left- Ronald Brwon MD) ; Now following with Dr. Luis [...] BRBPR and denies melena. He follows with Online Marketing Coordinator for his UC. States has scopes this summer by his assurance analyst. He is following with Orthopedics for his osteoarthroses and non-inflammatory joint pains. He has a chronic rotator cuff tear and extensive bilateral glenohumeral degenerative disease. His s/p b/l TKR and rt THR. Hissed rate was elevated at 79 04/2024 at time of his pneumonia. He continues on sulfasalazine and Entyvio by his assurance analyst. He does not describe RA related symptoms No jt pains or swelling outside of the LLE from TKR Denies rheum nodules No stiffness He is on sulfasalazine per assurance analyst for his UC and this has been controlling his RA He is pleased with his treatment regimen He also states that his IBD is well controlled, states told is in remission, on Entyvio Doing exercise and working with personal injury paralegal at the gym and will be going [...] in IBD and is following with local assurance analyst for that. Has been on Humira since Sep 2020 (started with 80 mg loading dose and since has been on 40 mg every 2 wks) He was pleased with Enbrel response to his RA and later was switched to Humira, reports has similar benefit and is pleased with response. His assurance analyst switched him to Humira for optimal mgt of IBD and he feels this has helped his IBD better. Reports still gets 8 BM's a day, does not have BM at night, does not have to wake up from sleep. Has been following with his assurance analyst for his UC Had colonoscopy 11/22/2021 with reported marked improvement in asc/transv/desc colon and severe active in rectum, histopath with active colitis with erosions. States Dr. Lebron has started him on rectal enemas. Recent colonoscopy with reported active colitis. He tells me that he continues to have multiple BM's; His assurance analyst prescribed pred. course, completed recently. No jt [...] us, he is on Humira per his Online Marketing Coordinator He is off Enbrel, was switched to Humira by his assurance analyst. (previously was on Enbrel 25 mg twice a wk and has been in remission since on Enbrel and very pleased with his treatment regimen) He is on Humira 40 mg every 2 wks by his Online Marketing Coordinator He is on sulfasalazine, Humira and mesalamine enemas per his assurance analyst I have reviewed benefits of a whole food plant based diet He consumes dairy, cheese, sausage, hamburger. I have advised him on avoiding meats and dairy and reviewed reports and patient experience with flare of IBD and RA, as well as gastrointestinal dysbiosis. I advised him on a whole foods plant based diet. 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 He has stopped drinking monster energy drink with water and I advised him to a (more content not included)...[facility]01-08-2025 Telephone encounter Note* Telephone Encounter - Darrian Dubon MD - 11/23/2024 12:36 PM EST Thank you for trying. Since has seen his PCP, he would not need sooner apt with me. thank you kindly, fa [facility]01-08-2025 Miscellaneous Notes* Telephone Encounter - Darrian Dubon MD - 11/23/2024 12:36 PM EST Thank you for trying. Since has seen his PCP, he would not need sooner apt with me. thank you kindly, fa * Telephone Encounter - Angelina Nguyen - 11/23/2024 9:34 AM EST Patient returned call and can not make it today, seen his PCP for the issue.please advise. * Telephone Encounter - Jordyn Roberson - 11/23/2024 8:[address] Dubon - I tried reaching [...] Jordyn KELLER November 23, 2024 9:03 AM * Telephone Encounter - Estephania Devine LPN - 11/23/2024 8:00 AM EST Please offer appt with Dr Dubon or MAGNETIC TAPE TYPEWRITER OPERATOR, if patient still interested. * Telephone Encounter - Darrian Dubon MD - 11/22/2024 8:24 PM EST Thank you for the excellent triage. 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 thank you kindly, fa * Telephone Encounter - Chica Shi RN - 11/22/2024 8:13 AM EST -Pt returning call to office. Pt identified by name and date. Pt given message as detailed below and verbalized understanding. -States the only trauma/injury he has experienced recently is that he stubbed his RT middle toe 3 days ago. 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 Denies any change in color to the toe or any swelling. -Pt states the bottoms of his feet are sore with ambulation in the morning and his hands are stiff and painful when he tries to stretch them out. States the pain/stiffness is also in his BL shouldersand radiates into his upper back. -States his [...] Pt then apologized and ended the call. * Telephone Encounter - Estephania Devine LPN - 11/21/2024 9:40 AM EST Left message requesting return call. * Telephone Encounter - Darrian Dubon MD - 11/21/2024 8:49 AM EST Thank you for the information provided. Patient [...] had before ? thank you kindly, fa * Telephone Encounter - Katt Phillips RN - 11/21/2024 8:16 AM EST Images from the original note were not [...] Bilateral feet/fingers/shoulders Please advise documented in [facility] Telephone encounter Note * Telephone Encounter - Angelina Nguyen - 11/23/2024 9:34 AM EST Patient returned call and can not make it today, seen his PCP for the issue.please advise. [facility]01-08-2025 Telephone encounter Note* Telephone Encounter - Franca KellerJordyn - 11/23/2024 8:[address] Dubon - I tried reaching Ms. Toscano via phone (several times), but I continued to reach her voicemail. I left her a message letting her know we scheduled her an appointment with you for today, 11/23/24 at 11:40am. I asked her to call back if she is unable to make this appointment. Patient does not have MyChart. Thank you, Jordyn Schulte ARIANNA November 23, 2024 9:03 AM [facility]01-08-2025 Telephone encounter Note* Telephone Encounter - Estephania Devine LPN - 11/23/2024 8:00 AM EST Please offer appt with Dr Dubon or MAGNETIC TAPE TYPEWRITER OPERATOR, if patient still interested. [facility]01-07-2025 Telephone encounter Note* Telephone Encounter - Darrian Bernabe MD - 11/22/2024 8:24 PM EST Thank you for the excellent triage. 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 thank you kindly, fa [facility]01-07-2025 NoteUrology Office/Clinic Note Chief Complaint referral HPI Staff 59yr old male referred by Dr. Lackey for kidney stones w/ KUB. KUB done at [facility] on 11/14/24. Pt has seen Dr. Gonzalez [...] w/obstruction, ureteral stone, prostate stone, bladder mass (s/pcysto 02/04/21 which was neg for b.t.). 1. [...] feel he empties completely. Moderate stream. No hxof UTI. Per pt, Dr. Gonzalez recommended TURP but pt was not interested in having a catheter. 4. Feeling of incomplete bladder emptying (R39.14: Feeling of incomplete bladder emptying) Does not feel he empties completely. -PVR to be done IO today. 5. Screening PSA (prostate specific antigen) (Z12.5: Encounter for screening for malignant neoplasmof prostate) PSA: 06/24/16 - 1.60 *only level [...] [facility] [address], [place] [address]- Additional Instructions: f/u pending CT Patient Education [...] emptying Gross hematuria Hea (more content not included)...[facility]: Result Comment: Electronically Signed By: Jennifer Nagel\.br\Date and Time Signed: 11/22/24 08:57 EST\.br\Electronically Co-Signed By: Marcin RAMÍREZ MD\.br\Date and Time Co-Signed: 12/02/24 11:56 [id number] Telephone encounter Note* Telephone Encounter - Chcia Shi RN - 11/22/2024 8:13 AM EST -Pt returning call to office. Pt identified by name and date. Pt given message as detailed below and verbalized understanding. -States the only trauma/injury he has experienced recently is that he stubbed his RT middle toe 3 days ago. 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 Denies any change in color to the toe or any swelling. -Pt states the bottoms of his feet are sore with ambulation in the morning and his hands are stiff and painful when he tries to stretch them out. States the pain/stiffness is also in his BL shouldersand radiates into his upper back. -States his [...] Pt then apologized and ended the call. [facility]01-06-2025 NotePatient Education Nephrology Dietary Guidelines to Help Prevent [...] labels. Limit your salt (sodium) intake to lessthan 1,500 mg a day. ??? Choose foods with calcium for each meal and snack. Try to eat about 300 mg of calcium at each meal. Foods that contain 200?500 mg of calcium a serving include: ? 8 oz (237 mL) of milk, dwfhnch-sbudarvnaqdm-sepjl milk, and calcium- fortifiedfruit juice. Calcium-fortified means [...] on the table and allow each person toadd their own salt to taste. ??? Use [...] Spinach (cooked), rhubarb, beets, sweet potatoes, and Icelandic chard. ? Peanuts. ? Potato chips, nepali fries, and baked potatoes with skin on. ? Nuts and nut products. ? Chocolate. ??? If you regularly take a diuretic medicine, make sure to eat at least 1 or 2 servings of fruits or vegetables that are high in potassium each day. These include: ? Avocado. ? Banana. ? [place], prune, carrot, or tomato juice. ? Baked potato. ? Cabbage. ? Beans and split peas. Lifestyle ??? Drink enough fluid to keep your urine pale yellow. This is the most important thing you can do.Spread your fluid intake throughout the day. ??? [...] fish oil, or vitamin B6. ??? Take geiz-guj-iouagdb and prescription medicines only as told by your health (more content not included)...[facility]01-[facility] Telephone encounter Note* Telephone Encounter - Estephania Devine LPN - 11/21/2024 9:40 AM EST Left message requesting return call. [facility]01-06-2025 Telephone encounter Note* Telephone Encounter - Darrian Bernabe MD - 11/21/2024 8:49 AM EST Thank you for the information provided. Patient [...] had before ? thank you kindly, fa [facility]01-06-2025 Telephone encounter Note* Telephone Encounter - Katt Phillips RN - 11/21/2024 8:16 AM EST Images from the original note were not [...] not completely. Pain: Bilateral feet/fingers/shoulders Please advise [facility]11-20-2024 Instructions* Patient Instructions* Darrian Dubon MD - 10/05/2024 7:56 AM EST -PLEASE NOTE THAT WE REVIEW ALL YOUR TEST RESULTS AT YOUR NEXT FOLLOW UP VISIT WITH YOU. IF ANY ABNORMAL LAB REQUIRES SOONER ATTENTION, WE WILL CONTACT YOU. -If you have signed up on [employer], we will release your test results through [employer]. I wish you the best of health [...] sure you follow these instructions as it affectsthe results and interpretation. The CTX is a [...] track your nutrition and calcium intake on www.[employer].GameGenetics This provides macro and micronutrient intake and requirements. - You can track your calcium intake on [employer] or any other calcium tracker of your [...] physical therapist who specialize in Osteoporosis Program. Ifyou would like to be scheduled, let us know and we can assist you with an in person apt. -You can also follow along with this video on youtube and copy and paste this link: [email or web address] This is done by a Physical Medicine and Rehab doctor who is a assistant professor of theater in [employer]. She completed a PhD at the [employer]. I hope you find it helpful. [...] hazelnuts, legumes, soybeans and other beans) - Fields (potatoes, avocados, almonds, peanuts) - Chromium (broccoli, [...] Eur J Clin Nutr 62, 155-161 (2008). https://doi.org/10.1038/sj.cn.9818803 -Clyde Rosa, Trisha Lara, Harry De Leon. et al. Isoflavone intervention and its impact on bone mineral density in postmenopausal women: a systematic review and meta-analysis of randomized controlled trials. Osteoporos Int (2022). https://doi.org/10.1007/k63352-781-43178-p -Jack Finch, Trisha Lara, Andrez Grant. et al. Effects of isoflavone interventions on bone mineral density in postmenopausal women: a systematic review and meta-analysis of randomized controlled trials. Osteoporos Int 31, 5404-1174 (2020). https://doi.org/10.1007/f43343-148-91151-z - Benefits of consuming soy in whole foods are listed in this article at the PCR website: https://www.pcrm.org/good-nutrition/nutrition-information/vkb-pmy-nvtaqi - Prunes have been reported to help with bone density and inflammation, and are also beneficial forthe gut microbiome and constipation. -The Prune Study article: Adame MJ, Sivakumar DE LEONA, Jordy NI, Edouard H, Flor KJ, Trey C, Praveena MG, Ara CH, Terry C. Prunes preserve hip bone mineral density in a 12-month randomized controlled trial in postmenopausal women: the Prune Study. Am J Clin Nutr. 2021Aug 21;116(4):897-910. doi: 10.1093/ajcn/vqzr213. PMID: 30196387. -Benefit to bone density and inflammation: Hebert BishopJ, Deep MJ, Glory HL, Sivakumar DE LEONA, Trey CJ. The Role of Prunes in Modulating Inflammatory Pathways to Improve Bone Health in Postmenopausal Women. Adv Nutr. 2021Aug 17;13(5):1476- 1492. doi: 10.1093/advances/aoie065. PMID: 54444958; PMCID: UOL7258816. - Information on Vitamin K2: more recently [...] foods, with the exception of Natto(a traditional Palestinian food made from fermented soybeans) has high [...] of these foods, please consult with your Humanities Coordinator or Physician first. Review of Osteoporosis medications [...] in the office. This medication is given fci, indefinitely. Prolia should not be discontinued without [...] looked into transition therapy. Recent study from [facility] Slim et al, 04/11/2020 (PMID: 63646257.The study is ongoing, clinicaltrials.gov; [id number]), reported one infusion of IV Reclast did [...] after that, based onguidelines. These medications are contraindicated in certain conditions, [...] is given for 1 year and if furthertreatment is required after that, we would transition to Prolia or a bisphosphonate. It has listed CV risk and warning that it should not be initiated in patients who have had an IN orstroke in the preceding year or those considered high risk. We may need a clearance from a Length Control Tester prior to proceeding with this medication in patients who have a cardiovascular disease history. This is only prescribed for 1 year and if treatment for Osteoporosis is still warranted, would needto switch to anti-resorptive therapy, according to recommendations. [...] and the different available medications at the [place] [employer] website at: https://www.rheumatology.org/I-Am-A/Patient-Caregiver/ Diseases-Conditions/Osteoporosis - Additional information on Bone Health and [...] Osteoporosis Foundation) http://www.osteo.org/osteolinks.asp National Institutes of Health: 7-016-807-BONE The Calcium Information Center: Non-Dairy, Plant based Milk, can contain in1 glass up to 450 mg of calcium (300 to 450 mg) Exampled include Oat Milk, Flax Milk, [place] Milk, Cashew Milk, Soy Milk, Peas Milk Examples of Food Sources of Calcium from [facility] Food Milligrams (mg) per serving Percent DV* Soymilk, calcium-fortified, 8 ounces 299 30 [place] juice, calcium-fortified, 6 ounces 261 26 Tofu, firm, made with calcium sulfate, cup* 253 25 Tofu, soft, made with calcium sulfate, cup* 138 14 Pnowv-db-eix cereal, calcium-fortified, 1 cup 100-1,000 10-100 Turnip greens, fresh, boiled, cup 99 10 Kale, raw, chopped, 1 cup 100 10 Kale, fresh, cooked, 1 cup 94 9 Israeli cabbage, bok marin, raw, shredded, 1 cup 74 7 Bread, white, 1 slice 73 7 Tortilla, corn, yorwd-ai-qwsp/marshall, one 6 diameter 46 5 Tortilla, flour, sapzy-ui-coeo/marshall, one 6 diameter 32 3 Bread, whole-wheat, 1 slice 30 3 Broccoli, raw, cup 21 2 * DV = Daily Value. DVs were developed by the U.S. Food and Drug Administration to help consumers compare the nutrient contents among products within the context of a total daily diet. The U.S. Department of Agriculture s (USDA s) Nutrient Database Web site lists the nutrient contentof many foods and provides comprehensive list of [...] daily with a meal; Certain patients require 2747-4295 international units daily and in patients deficient [...] bones. Studies show approximately 50% of [place] men and women are vitamin D deficient [...] of falling. Additional Information is available from: [facility] Osteoporosis Information: https://my.[facility].org/departments/orthopaedics-r heumatology/depts/osteoporosis-metabolic The Bone Health and Osteoporosis Foundation (formerly the National Osteoporosis Foundation) : https://www.bonehealthandosteoporosis.org International Osteoporosis Foundation: https://www.osteoporosis.foundation http://ods.od.nih.gov/factsheets/vitamind.asp National Institutes of Health: 6-697-314-BONE The Calcium Information [place]: I recommend following a healthy lifestyle. You [...] and maintaining healthy weight. with healthy BMI bckauji98 to 25, and ideally around 22-23 when possible. For Osteoporosis and low bone density, it is important to keep a BMI at 22 or above and ensure good strength training exercise routine. - You can track your nutrition and calcium intake on www.[employer].GameGenetics This provides macro and micronutrient intake and [...] that features the Whole Plant Based diet, [place] over knives (see video online and visit website). Another movie that was recently released is: Eating You Alive (you can find it at [employer]) and The Game Changers movie Dr. Fauzia Ansari is a [facility] physician who has done research and published books, is an expert in Whole Plant based diet for prevention and reversal of heart disease. His website is [employer]. 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 Dr. Rock Velazco, has a website and free angélica to help get started on a whole plant based diet, at www.pcrzappit.org and you can log on for free for his 21-Day Kickstart with meals and recipes to follow for21 days. There is also a free angélica for that. He has multiple free videos and YouTube, for example: ht [email or web address] Foundationu.be/[email or web address] , [email or web address] Foundationu.[email or web address] He has written multiple books, including iJigg.com for the Brain, The Cheese Trap, Dr. Rock Velazco's Program for Reversing Diabetes, Your Body in Balance You can also watch YouTube channel : The Doc & Doll Wig Hackler Dr. Anthony Carlson has shown the benefit of a starch based whole food plant based diet to his Rheumatoid Arthritis patients, as well as patient with diabetes II, hypertension, obesity, multiple sclerosis, heart disease, acne, and other, his website: www.magnoliaFull Capture Solutionsangel.GameGenetics Dr. Yayo Allred is a renowned formulation scientist, who has studied and researched the benefits of the Whole plant based diet. He has also researched the adverse effects of animal proteins on health. He presents many of his research findings in his book The [place] study. Dr. Gerber Becker has completed many research trials proving the reversal of diseases, such as heart disease and early prostate cancer, with healthy lifestyle and the Whole Plant based diet. Dr. Gerber Becker website is: www.carmenAmplion Clinical Communications.GameGenetics His new book: Undo It, has evidence based information and guide to following this healthy lifestyle. Dr. Cody Dillon has dedicated a website and additional time to reviewing all food related articles and research and presents them in his power point presentation and on his website at: nutritionfacts.org which is all free. Dr. Dillon has multiple free videos and YouTube, for example https://youSunlight Foundationu.be/aSgNkhgVtks and https://youSunlight Foundationu.be/lXXXygDRyBU. He has written multiple books including: How Not To and How Not To Diet He is now working on his next book: How Not To Age Dr. Danitza Dash (from the [facility]), has articles on the following website: [employer].GameGenetics For additional ideas on recipes, you could find additional information on practical to follow recipes by reading or watching online and YouTube such as: Doll Wig Hackler AJ, Cooking With Plants, The Vegan Corner(recipes from an Libyan Doll Wig Hackler), The Whole Foods Plant Based Cooking Show and visiting the provided websites for additional information on the whole plant based benefit and cooking recipes. You can also consider watching the vlogs of some of the plant based Athletes such as Graeme Kamara, Fausto Marmolejo, Agustin on Audience. You can find very good recipes for [...] Dr. Jenny Degroot Lifestyle Medicine (is a Length Control Tester and Lifestyle Medicine Physician) -Sometimes it helps to start with a simple diet of potatoes, that Dr. Carlson calls Yarelis Butler. You can learn more about that in his website: www.Opiatalk.GameGenetics This is the website for Yarelis Butler pdf : https://www.DocuTAP.GameGenetics/wp-content/uploads/Mar rx-Uubk_Exypvew_Wobsq_Uamcbtj-0.pdf You can also read more on Dr. Carlson's website - When you goal is to lose weight, it is important to listen to your hunger cues. Don't eat until you are stuffed. As soon as you feel you are no longer hungry, stop eating. There is a Palestinian saying that says Tammie Vega, meaning eat until you are 80% full. I say avoideating past 80% of your stomach fullness. This originated from the city of [facility], which is one ofthe sites reported in the DuckDuckGo book, one of the highest cities in the world for having the most centenarians. Remember your stomach needs space and capacity for proper digestion of your food. Like a fast food crew member or a pizza driver, they have a limit for proper function, and should not be filled to the top. You can read more about that from the [facility] article Don t Eat Until You re Full ? Instead, Mind Your Tammie Borges , at https://health.[facility].org/ipxu-wpz-lqaaj-tirwr-nuzg-l gwwamh-pmgs-nueo-idns-nuogn-jq-point/ Most plants contain proteins and all essential [...] you will need to consult with a assurance analyst to have further evaluation to exclude Celiac [...] - Gentle Yoga Anyone Can Do Anywhere www.LiquidSpace.GameGenetics/yoga Also on youtube: yoga with Karlie For women, especially after menopause, strength training is important. You can read more on that from Clare Morley, PhD at her website https://www.AviantLogic and YouTube videos. If you are a beginner, it is best to start with a physical therapist or personal injury paralegal. There are also several [facility] that offer virtual personal training 3- Good Sleep (poor sleep impacts everything, recommended sleep is 7 to 8 hrs. a night). Certain people may need more sleep, depending on their age and other conditions. Meditation and relaxation techniques have shown to help with improving sleep. Try to be consistent with your sleep. You can find more at the [facility] Website on : https://my.[facility].org/departments/wellness/store/go-well#sleep-tab 4- Stress management, be happy, laugh often [...] Calm Insight Timer Meditation Stress Free Now ([facility]). You can find more resources at the [facility] website at : https://my.[facility].org/departments/wellness/store/go-well#fuovik-cttp-mv b There are many free youtube videos on guided meditation as well For Breathing techniques: You can watch John Carlisle and learn the breathing technique and its benefits by watching the following YouTube: https://Stead[employer].Love Home Swap/[email or web address]?[email or web address]. Learning about your awareness/spiritual being, is very [...] work with a psychotherapist or behavioral health coach professional athletes. When having a psychiatric condition, it is [...] based diet, it is recommended to take LfcvfpqT98, sublingual, dissolve under the tongue, take once daily. Vitamin B12 is available over the counter, dose could be 2500 mcg, and can be taken once a week, and if your blood levels are low, you mayneed to take it once daily or a higher dose. Raw: Garlic, Cilantro, Redford nuts, Pumpkin seeds, [place] seeds and Flax seed powder have been reported to help with certain metal detoxification such as mercury. [place]-3 plant based rich foods are good anti-inflammatory [...] the Whole Plant Based Diet, by watching [place] over ConnectFu movie and then review website. There are many other resources and educational information on the Whole plant based diet on the Internet and documentaries. There are other resources for wellness that you can also benefit from, such as the [facility] website, [facility].org and includes Plant based and Mediterranean diet, yoga and meditation. Please avoid all dairy products. You could use non-dairy milk such as Flax milk, Cashew milk, [place] milk, Rice milk, Oat milk or Hemp [...] below, just add the ingredients to your pizza driver and blend: - Probably the healthiest smoothie is one that contains mostly green leafy vegetables (especially containing kale), some berries, flax seed and water. This might not return to factory clerk to be sweet. You can addone or two pitted dates or a frozen banana for natural sweetness. Examples of healthy green smoothies, pack your pizza driver (at least half way to 01/17) with a mix of green leafy veggies, then top your pizza driver with fruits (such as banana or frozen raul or pineapple, peaches, apricots, apples, grapes), a tablespoon of flax or david seeds, then add water or unsweetened coconut water and blend until smooth. You can also add turmeric in this recipe. Do not only use spinach as they tend to be high in oxalates and can be risk for kidney stones. The same with kenyan chards and beet leaves. If you don't [...] of your health and wellbeing. At the [facility], we work as a team for your care, along with Nurse Practitioners, PhysicianAssistants, Nurses and Medical Assistants. It is a privilege and honor to serve you. Thank you for choosing The [facility] for your healthcare. Sincerely, Darrian Dubon MD BONE MINERAL DENSITY PATIENT INSTRUCTIONS Bone mineral density testing measures the amount of calcium in certain parts of your bones. This information determines how strong your bones are. The test is used to detect osteoporosis, a disease in which the bone's mineral content and density are low, increasing a person's risk of fractures. Thelumbar spine (lower back) and the hip are [...] your usual activities immediately. documented in [facility] NoteHNO ID: [id number] Author: DARRIAN DUBON MD Service: ? Author Type: Physician Type: Progress Notes Filed: 10/16/2024 19:47 Note Text: FOLLOW UP VISIT Patient's Name: Jam Torres Rip [place] [id number] PCP: Jose L Lackey MD [address] [place] [phone] Consult Requested by: Jose L Lackey MD [address] [place] [id number] Other physicians: Online Marketing Coordinator prevBrittney Lebron MD (his prev. assurance analyst left- Ronald Brown MD) ; Now following [...] No stiffness He is on sulfasalazine per assurance analyst for his UC and this has been controlling his RA He is pleased with his treatment regimen He also states that his IBD is well controlled, states told is in remission, on Entyvio Doing exercise and working with personal injury paralegal at the gym and will be going [...] in IBD and is following with local assurance analyst for that. Has been on Humira since Sep 2020 (started with 80 mg loading dose and since has been on 40 mg every 2 wks) He was pleased with Enbrel response to his RA and later was switched to Humira, reports has similar benefit and is pleased with response. His assurance analyst switched him to Humira for optimal mgt of IBD and he feels this has helped his IBD better. Reports still gets 8 BM's a day, does not have BM at night, does not have to wake up from sleep. Has been following with his assurance analyst for his UC Had colonoscopy 11/22/2021 with reported marked improvement in asc/transv/desc colon and severe active in rectum, histopath with active colitis with erosions. States Dr. Lebron has started him on rectal enemas. Recent colonoscopy with reported active colitis. He tells me that he continues to have multiple BM's; His assurance analyst prescribed pred. course, completed recently. No jt [...] us, he is on Humira per his Online Marketing Coordinator He is off Enbrel, was switched to Humira by his assurance analyst. (previously was on Enbrel 25 mg twice a wk and has been in remission since on Enbrel and very pleased with his treatment regimen) He is on Humira 40 mg every 2 wks by his Online Marketing Coordinator He is on sulfasalazine, Humira and mesalamine enemas per his assurance analyst I have reviewed benefits of a whole food plant based diet He consumes dairy, cheese, sausage, hamburger. I have advised him on avoiding meats and dairy and reviewed reports and patient experience with flare of IBD and RA, as well as gastrointestinal dysbiosis. I advised him on a whole foods plant based diet. 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 FOLLOW UP VISIT Patient's Name: Jam Murguiaal[address]a [address] [facility] [id number] PCP: Jose L Lackey MD [facility] [place] [phone] Consult Requested by: Jose L Lackey MD [facility] [facility] [address] Other physicians: Online Marketing Coordinator prev. Nel Lebron MD (his prev. assurance analyst left- Ronald Brown MD) ; Now following [...] No stiffness He is on sulfasalazine per assurance analyst for his UC and this has been controlling his RA He is pleased with his treatment regimen He also states that his IBD is well controlled, states told is in remission, on Entyvio Doing exercise and working with personal injury paralegal at the gym and will be going [...] in IBD and is following with local assurance analyst for that. Has been on Humira since Sep 2020 (started with 80 mg loading dose and since has been on 40 mg every 2 wks) He was pleased with Enbrel response to his RA and later was switched to Humira, reports has similarbenefit and is pleased with response. His assurance analyst switched him to Humira for optimal mgt of IBD and he feels this has helped his IBD better. Reports still gets 8 BM's a day, does not have BM at night, does not have to wake up from sleep. Has been following with his assurance analyst for his UC Had colonoscopy 11/22/2021 with reported marked improvement in asc/transv/desc colon and severe active in rectum, histopath with active colitis with erosions. States Dr. Lebron has started him on rectalenemas. Recent colonoscopy with reported active colitis. He tells me that he continues to have multiple BM's; His assurance analyst prescribed pred. course, completed recently. No jt [...] us, he is on Humira per his Online Marketing Coordinator He is off Enbrel, was switched to Humira by his assurance analyst. (previously was on Enbrel 25 mg twice a wk and has been in remission since on Enbrel and very pleased with his treatment regimen) He is on Humira 40 mg every 2 wks by his Online Marketing Coordinator He is on sulfasalazine, Humira and mesalamine enemas per his assurance analyst I have reviewed benefits of a whole food plant based diet He consumes dairy, cheese, sausage, hamburger. I have advised him on avoiding meats and dairy and reviewed reports and patient experience with flare of IBD and RA, as well as gastrointestinal dysbiosis. I advised him on a whole foods plant based diet. 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 Fur Stretcher: CODY Transcribe Date/Time: Feb 20 2021 9:52A [...] site where has fallen arch. Has seen Relationship Specialist in the remote past for the fallen arch, not recently. Feels gets stiff when not moving as much. Denies any injury or trauma. Denies any pain to me today States his assurance analyst has prescribed prednisone course due to IBD flare States after scope was told is flared. He is on sulfasalazine and budesonide and his assurance analyst and since has switched him from Enbrel [...] Alk phos isoenz: liver fraction; followed by assurance analyst He follows with his assurance analyst for hi elev alk phos and AST and for bld with stools, Dr Brown: and states he started him on iron supplement States Dr. Brown prescribed metronidazole, for reported diarrhea. States felt it made a difference. States he gave him enemas and told that is for his ulcerative colitis and prescr. sulfasalazine. In 2019, has also followed with his assurance analyst for blood with stools, and had flex [...] systems reviewed and are negative DXA Model: AllPeers W [id number] SITE SCANNED: Lumbar spine and left hip [...] were all normal. He follows with his assurance analyst for his ulcerative colitis and is on sulfasalazine. He was told by his assurance analyst to avoid sun exposure due to this med, had skin itching last summer. He had evaluation for elevated AST and alk phos. Alk phos has improved and AST has been borderline elevated. I have advised him to f/u with his assurance analyst for his elevated alk phos (liver fraction) States his assurance analyst did an US of his liver twice and was told was normal. He denies any alcohol consumption or acetaminophens. His isoenzyme indicated predom. of liver origin. The patient reports that his assurance analyst completed evaluation and told his liver is fine. His liver US was unremarkable . His anemia has resolved since his UC has been controlled. States saw his assurance analyst, Dr. Lebron, recently and states told him [...] and denies hematuria or dysuria. DXA Model: AllPeers W [id number] SITE SCANNED: Lumbar spine and left hip [...] states not bad . has seen a retail customer service specialist in the past, in [place], Dr. Whitfield. States used to be on [...] 500mg q 6hrs. Reports benefit and his assurance analyst took him off the iron supplement as his iron was good. [facility] has advised him to avoid all nsaids and recently had discontinued his Celebrex. 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 Lackey Smoking: quit 2012 Alcohol as above IVDU: denies Industrial toxic exposures: denies FAMILY HISTORY: No family history on file. suspects his mother may have had RA Mother: CAD, CABG, COPD/emphysemia Father: passed from [facility] bother were smokers PERTINENT TESTS: Component [...] Negative Negative Ketones, Urine Negative Negative Specific Almond, Ur 1.005 - 1.030 1.008 Hemoglobin/Blood,Ur Negative 3+ (A) pH, Urine 4.5 - 8.0 6.0 Protein, Urine Negative mg/dL Negative Urobilinogen Normal Normal Nitrites Negative Negative Leukest Negative Negative Comments SEE COMMENT Urine Adan Comment SEE COMMENT WBC, Urine 0 - 5 /HPF 0-5 RBC, Urine 0 - 3 /HPF >25 (A) Sm Antibody <1.0 AI <0.2 SUPERVISOR PIG MACHINE Antibody <1.0 AI 1.2 (H) SSA Antibody <1.0 AI <0.2 SSB Antibody <1.0 AI <0.2 Centromere Ab <1.0 AI <0.2 Scleroderma Ab, IgG <1.0 AI <0.2 Milagro 1 Antibody <1.0 AI <0.2 Ribosomal SUPERVISOR PIG MACHINE <1.0 AI <0.2 Chromatin Antibody <1.0 AI [...] <12 Sm Antibody <1.0 AI <0.2 Ribosomal SUPERVISOR PIG MACHINE <1.0 AI <0.2 Chromatin Antibody <1.0 AI <0.2 SSA Antibody <1.0 AI <0.2 SSB Antibody <1.0 AI <0.2 SUPERVISOR PIG MACHINE Antibody <1.0 AI 1.2 Scleroderma Ab, IgG [...] FINDINGS CONSISTENT WITH CHRONIC SEVERE RHEUMATOID ARTHRITIS. Fur Stretcher: KETTY Transcribe Date/Time: Aug 29 2015 12:56P ... Last XR Ankle - Impression Only XR ANKLE GENERAL 3V AP/LAT/OBL LT Exam End: 02/20/2021 8:42 AM (Final result) Impression: IMPRESSION: Arthritic changes demonstrating interval progression in this patient with known rheumatoid arthritis. Fur Stretcher: CODY Transcribe Date/Time: Feb 20 2021 9:52A [...] developed and its performance characteristics determined by [facility] Flom ([facility]). It has not been cleared or approved by the FDA. -[facility] is regulated under CLIA as qualified to [...] 147 53 - 334 mg/dL Final MPA Chinle, Serum Date Value Ref Range Status 08/19/2018 1,020 534 - 1,267 mg/dL Final MPA Lambda, Serum Date Value Ref Range Status 08/19/2018 551 253 - 653 mg/dL Final MPA Chinle/Lambda Ratio Date Value Ref Range Status 08/19/2018 [...] , Gender: Male SCANNER INFORMATION: DXA Model: AllPeers W [id number] SITE SCANNED: Lumbar spine and left hip [...] www.nof.org International Society of Clinical Densitometry www.iscd.org Fur Stretcher: [id number] Transcribe Date/Time: Sep 23 2022 10:28A Dictated [...] involving multiple sites with positive rheumatoid factor ([facility]) Z79.899 On sulfasalazine therapy K51.00 Ulcerative pancolitis ([facility]) Comment: On SSZ and [...] in patient's severe chronic Rheumatoid Arthritis. His assurance analyst has switched him to Humira as he [...] to receive intermittent steroid therapy from his assurance analyst. Pharmacologic therapy is still indicated and recommended, [...] Also received labs per Primary care physician, Online Marketing Coordinator -The patient's assurance analyst follows him for his UC, anemia and liver tests. He is on Entyvio and sulfasalazine per his Online Marketing Coordinator RA med: none from rheum, doing well on sulfasalazine, prescribed by GI (He was prev. on Enbrel 25 mg sq twice a week, or may switch to Humira if his assurance analyst switched him to Humira TNF inhibitor therapy, [...] on sulfasalazine for his IBD per his assurance analyst OP med: Received Reclast infusion, 5 mg IV on 05/09/2024 well tolerated Further infusions will be determined based on recheck DXA and CTX, or if on systemic steroids. As previously discussed, his OP med of choice is IV Reclast Oral bisphosphonate contraindicated due to his IBD and gastrointestinal disease. 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 fracture of femur with fci use of bisphosphonates/alendronate and anti-resorptive agents, there [...] wished to proceed. Previous orders -CONSULT TO TECHNICAL CABLE JOINTER -CONSULT TO PODIATRY Provided referral to OT for assistive devices, exercises to preserve left function Referral to hair spinner for foot/ankle deformities and callus care, inserts/braces/orthotics, [...] sugars and dairy and following whole foods plantbased diet. Additional time spent with patient on [...] which included preparing to see the patient, [id number]-[id number] patient care, completing clinical documentation, obtaining and/or reviewing separately obtained history, performing a medically appropriate examination, counseling and educating the pat ient/family/caregiver, ordering medications, tests, or procedures, communicating with other HCPs (not separately reported), independently interpreting results (not separately reported), communicatingresults to the patient/family/caregiver, and care coordination (not [...] arthritis among patients diagnosed between 1994 and 2005.Journal of Internal Medicine 2010; 268(6): 578-585. -Infection precautions and age appropriate immunization recommended. -Continued follow up with assurance analyst for IBD management and monitoring for liver disease, as they deem necessary -I have advised on wellness and the whole plant based diet, as they have been shown to decrease risk of Rheumatoid Arthritis activity, auto-immune, inflammatory, certain gastrointestinal disorders, certain skin disorders, CV diseases, metabolic syndrome, diabetes, hyperlipidemia, HTN, cancer, obesity, macular degeneration, certain degenerative disorders, bone loss, osteoporosis and multiple otherchronic health disorders, and be in favor of general health. Thank you for allowing me to participate in the care of your patient. Darrian Fischer MD Jose L Lackey MD [address] [place] [address] documented in this encounterZ[facility]06[facility] History of Present illness Narrative* Teresa Salas, RN - 05/09/2024 9:49 AM EDT FOR RECLAST, IV BONIVA OR PROLIA ONLY: [...] for current infection? No documented in this encounterZanesville [facility]06-24-[facility]24 Instructions* Patient Instructions* Nidia Ascencio, ADEOLA.PIANO MOVER - 05/09/2024 9:45 AM EDT -PLEASE NOTE THAT WE REVIEW ALL YOUR TEST RESULTS AT YOUR NEXT FOLLOW UP VISIT WITH YOU. IF ANY ABNORMAL LAB REQUIRES SOONER ATTENTION, WE WILL CONTACT YOU. -If you have signed up on [employer], we will release your test results through [employer]. I wish you the best of health [...] and sulfasalazine, but discuss first with your assurance analyst. Supplements recommended Vitamin B12: 500 to 1000 [...] taken with good fat to be absorbed. Examplesof healthy fat include nuts, seeds, avocados, olives [...] track your nutrition and calcium intake on www.NavSemi Energy.GameGenetics This provides macro and micronutrient intake and requirements. - You can track your calcium intake on [employer].GameGenetics or any other calcium tracker of your [...] consume. For your Ulcerative Colitis it is bestto avoid all animal protein. If you need [...] now for a cost, such as at www.Liberata. -When eating a whole food plant based [...] weight management, memoryand brain healthy, bone health. - You can track your nutrition and calcium intake on www.OKCoinometer.GameGenetics This provides macro and micronutrient intake and [...] that features the Whole Plant Based diet, [place] over knives (see video online and visit website). Another movie that was recently released is: Eating You Alive (you can find it at [employer]) and The [employer] ChangeJin-Magic movie Dr. Fauzia Ansari is a [facility] physician who is an expert in Whole Plant based diet. His website is [employer]. His research highlights the benefits of the Whole food plant based diet in reversing and preventing heart disease. Mrs. Ansari (his ) has a cookbook with many recipes on whole plant based food: The Prevent and Reverse Heart Disease cookbook. 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 Dr. Rock Velazco, has a website and free angélica to help get started on a whole plant based diet, at www.pcrm.org and you can log on for free for his 21-Day Kickstart with meals and recipes to follow for21 days. There is also a free angélica for that. He has multiple free videos and YouTube, for example: ht tps://youtu.be/[email or web address] , https://[email or web address]/[email or web address] He has written multiple books, including Power [...] heart disease, acne, and other, his website: www.debra.GameGenetics Dr. Yayo Allred is a renowned formulation scientist, who has studied and researched the benefits of the Whole plant based diet. He has also researched the adverse effects of animal proteins on health. He presents many of his research findings in his book The Selden study. Dr. Gerber Becker has completed many research trials proving the reversal of diseases, such as heart disease and early prostate cancer, with healthy lifestyle and the Whole Plant based diet. Dr. Gerber Becker website is: www.carmenAmplion Clinical Communications.GameGenetics His new book: Undo It, has evidence based information and guide to following this healthy lifestyle. Dr. Cody Dillon has dedicated a website and additional time to reviewing all food related articles and research and presents them in his power point presentation and on his website at: nutritionfacts.org which is all free. Dr. Dillon has multiple free videos and YouTube, for example https://[employer].Love Home Swap/aSgNkhgVtks and [email or web address]://[employer].Love Home [email or web address]. He has written multiple books including: How Not To and How Not To Diet He is now working on his next book: How Not To Age Dr. Danitza Dash (from the [facility]), has articles on the following website: [employer].GameGenetics Also, you could find additional information on practical to follow recipes by reading or watching online and YouTube such as: Doll Wig Hackler BARBRA, Cooking With Plants, The Vegan Corner (recipes from an [place] Doll Wig Hackler), The Whole Foods Plant Based Cooking Show and visiting the provided websites for additional information on the whole plant based benefit and cooking recipes. You can also consider watching the vlogs of some of the plant based Athletes such as Fausto Ewing Derek on ManyWho Nutrition. Dr. Maryan Holguin (a psychiatrist who [...] intolerant, consider gluten free diet. Gluten could leadto increased inflammation in the bowels and body [...] water (see details from Dr. Yañez's website nutritionSoevolved.org) and rinse well with water. 2- Regular Exercise, such as beginner yoga, tommie chi, stretching, cardio, gradual strengthening, pool therapy, physical therapy Come As You Are: YOGA - Gentle Yoga Anyone Can Do Anywhere www.ChinaNet [employer] Holdings/yoga Also on youtube: yoga with Karlie 3- [...] based diet, it is recommended to take GgfltrwV69, sublingual, dissolve under the tongue, take once daily. Vitamin B12 is available over the counter, dose could be 2500 mcg, and can be taken once a week, and if your blood levels are low, you mayneed to take it once daily or a higher dose. Raw: Garlic, Cilantro, [place]ford nuts, Pumpkin seeds, [place] seeds and Flax seed powder have been reported to help with certain metal detoxification such as mercury. [place]-3 plant based rich foods are good anti-inflammatory [...] the Whole Plant Based Diet, by watching [place] over ConnectFu movie and then review website. There are many other resources and educational information on the Whole plant based diet on the Internet and documentaries. There are other resources for wellness that you can also benefit from, such as the [facility] website, [facility]org and includes Plant based and Mediterranean diet, yoga and meditation. Please avoid all dairy products. You could use non-dairy milk such as Flax milk, Cashew milk, [place] milk, Rice milk, Oat milk or Hemp [...] milk, you can use coconut water or plainwater instead. Other smoothies, including green smoothies, are also very healthy and highly anti-inflammatory. Forexample fruits (such as banana or frozen raul [...] the dose necessary to achieve a Vitamin D25-OH blood level of >31 and preferably closer [...] Osteoporosis Foundation) http://www.osteo.org/osteolinks.asp National Institutes of Health: 1-318-418-BONE The Calcium Information Center: -Non-Dairy, Plant based Milk, can contain in1 glass up to 450 mg of calcium (300 to 450 mg) Exampled include Oat Milk, Flax Milk, [place] Milk, Cashew Milk, Soy Milk, Peas Milk general health and well being Examples of Food Sources of Calcium from NIH Food Milligrams (mg) per serving Percent DV* Soymilk, calcium-fortified, 8 ounces 299 30 [place] juice, calcium-fortified, 6 ounces 261 26 Tofu, firm, made with calcium sulfate, cup* 253 25 Tofu, soft, made with calcium sulfate, cup* 138 14 Mclhr-po-uky cereal, calcium-fortified, 1 cup 100-1,000 10-100 Turnip greens, fresh, boiled, cup 99 10 Kale, raw, chopped, 1 cup 100 10 Kale, fresh, cooked, 1 cup 94 9 Israeli cabbage, bok marin, raw, shredded, 1 cup 74 7 Bread, white, 1 slice 73 7 Tortilla, corn, ubbgc-gr-xsdf/marshall, one 6 diameter 46 5 Tortilla, flour, adhro-fy-qoau/marshall, one 6 diameter 32 3 Bread, whole-wheat, 1 slice 30 3 Broccoli, raw, cup 21 2 * DV = Daily Value. DVs were developed by the U.S. Food and Drug Administration to help consumers compare the nutrient contents among products within the context of a total daily diet. The U.S. Department of Agriculture s (USDA s) Nutrient Database Web site lists the nutrient contentof many foods and provides comprehensive list of [...] daily with a meal; Certain patients require 8244-0971 iu daily and in patients deficient in [...] bones. Studies show approximately 50% of [place] men and women are vitamin D deficient [...] available from: www.nof.org (the national osteoporosis foundation) http://www.[facility].org/arthritis/osteo/info.htm http://ods.od.nih.gov/factsheets/vitamind.asp National Institutes of Health: 7-474-826-BONE The Calcium Information [place]: Review of Osteoporosis medications Medications that prevent [...] disease, it is asymptomatic and does not leadto pains. Patients with new bone pains require [...] atypical and subtroch. 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 At the [facility], we work as a team for your care, along with Nurse Practitioners, PhysicianAssistants, Nurses and Medical Assistants. It is a privilege and honor to serve you. Thank you for choosing The [facility] for your healthcare. Sincerely, Nidia Ascencio APRN.JOSE documented in this [facility] History of Present illness Narrative* Nidia Ascencio APRN.CNP - 05/09/2024 9:00 AM EDT Follow up Jam Toscano is a very [...] multiple sites with positive rheumatoid factor (HCC) (primaryencounter diagnosis) E55.9 Vitamin D deficiency M81.8 Other [...] in patient's severe chronic Rheumatoid Arthritis. His assurance analyst has switched him to Humira as he [...] IBD and intermittent steroid therapy from his assurance analyst. Pharmacologic therapy is still indicated and recommended, however, are still awaiting completion ofdental work. -I have referred him to Hematology [...] which included preparing to see the patient, ldwo-sk-fxau patient care, completing clinical documentation, obtaining and/or reviewing separately obtained history, performing a medically appropriate examination, counseling and educating the pat ient/family/caregiver, and ordering medications, tests, or procedures. Nidia Ascencio APRN.PIANO MOVER Recommendations to share with Primary care physician: [...] the care of your patient. Nidia Ascencio APRN.PIANO MOVER cc Jose L Lackey MD, MD Patient Instructions -PLEASE NOTE THAT WE REVIEW ALL YOUR TEST RESULTS AT YOUR NEXT FOLLOW UP VISIT WITH YOU. IF ANY ABNORMAL LAB REQUIRES SOONER ATTENTION, WE WILL CONTACT YOU. -If you have signed up on [employer], we will release your test results through [employer]. I wish you the best of health [...] and sulfasalazine, but discuss first with your assurance analyst. Supplements recommended Vitamin B12: 500 to 1000 [...] taken with good fat to be absorbed. Examplesof healthy fat include nuts, seeds, avocados, olives [...] track your nutrition and calcium intake on www.NavSemi Energy.GameGenetics This provides macro and micronutrient intake and requirements. - You can track your calcium intake on NavSemi Energy.GameGenetics or any other calcium tracker of your [...] consume. For your Ulcerative Colitis it is bestto avoid all animal protein. If you need [...] now for a cost, such as at www.Liberata. -When eating a whole food plant based [...] weight management, memoryand brain healthy, bone health. - You can [...] that features the Whole Plant Based diet, [place] over knives (see video online and visit website). Another movie that was recently released is: Eating You Alive (you can find it at [employer]) and The Game Changers movie Dr. Fauzia Ansari is a [facility] physician who is an expert in Whole Plant based diet. His website is [employer]. His research highlights the benefits of the Whole food plant based diet in reversing and preventing heart disease. Mrs. Ansari (his ) has a cookbook with many recipes on whole plant based food: The Prevent and Reverse Heart Disease cookbook. 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 Dr. Rock Velazco, has a website and free angélica to help get started on a whole plant based diet, at www.pcrm.org and you can log on for free for his 21-Day Kickstart with meals and recipes to follow for21 days. There is also a free angélica for that. He has multiple free videos and YouTube, for example: ht [email or web address]://[email or web address]/[email or web address] , [email or web address]://[email or web address] He has written multiple books, including Power [...] heart disease, acne, and other, his website: www.tejaStrevusangel.GameGenetics Dr. Yayo Allred is a renowned formulation scientist, who has studied and researched the benefits of the Whole plant based diet. He has also researched the adverse effects of animal proteins on health. He presents many of his research findings in his book The Selden study. Dr. Gerber Becker has completed many research trials proving the reversal of diseases, such as heart disease and early prostate cancer, with healthy lifestyle and the Whole Plant based diet. Dr. Gerber Becker website is: www.carmenAmplion [employer] Communications.GameGenetics His new book: Undo It, has evidence based information and guide to following this healthy lifestyle. Dr. Cody Dillon has dedicated a website and additional time to reviewing all food related articles and research and presents them in his power point presentation and on his website at: nutritionfacts.org which is all free. Dr. Dillon has multiple free videos and YouTube, for example https://[employer].Love Home Swap/aSgNkhgVtks and [email or web address].Love Home [email or web address]. He has written multiple books including: How Not To and How Not To Diet He is now working on his next book: How Not To Age Dr. Danitza Dash (from the [facility]), has articles on the following website: [employer].GameGenetics Also, you could find additional information on practical to follow recipes by reading or watching online and YouTube such as: Doll Wig Hackler AJ, Cooking With Plants, The Vegan Corner (recipes from an Libyan Doll Wig Hackler), The Whole Foods Plant Based Cooking Show and visiting the provided websites for additional information on the whole plant based benefit and cooking recipes. You can also consider watching the vlogs of some of the plant based Athletes such as Fausto Ewing Derek on Audience. Dr. Maryan Holguin (a psychiatrist who suffered [...] intolerant, consider gluten free diet. Gluten could leadto increased inflammation in the bowels and body [...] - Gentle Yoga Anyone Can Do Anywhere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 (mg) per serving Percent DV* Soymilk, calcium-fortified, 8 ounces 299 30 [place] juice, calcium-fortified, 6 ounces 261 26 Tofu, firm, made with calcium sulfate, cup* 253 25 Tofu, soft, made with calcium sulfate, cup* 138 14 Dklby-rk-lag cereal, calcium-fortified, 1 cup 100-1,000 10-100 Turnip greens, fresh, boiled, cup 99 10 Kale, raw, chopped, 1 cup 100 10 Kale, fresh, cooked, 1 cup 94 9 Israeli cabbage, bok marin, raw, shredded, 1 cup 74 7 Bread, white, 1 slice 73 7 Tortilla, corn, zplkn-mb-stwj/marshall, one 6 diameter 46 5 Tortilla, flour, jxabk-xg-ypua/marshall, one 6 diameter 32 3 Bread, whole-wheat, 1 slice 30 3 Broccoli, raw, cup 21 2 * DV = Daily Value. DVs were developed by the U.S. Food and Drug Administration to help consumers compare the nutrient contents among products within the context of a total daily diet. The U.S. Department of Agriculture s (USDA s) Nutrient Database Web site lists the nutrient contentof many foods and provides comprehensive list of [...] daily with a meal; Certain patients require 5244-5959 iu daily and in patients deficient in [...] bones. Studies show approximately 50% of [place] men and women are vitamin D deficient [...] available from: www.nof.org (the national osteoporosis foundation) http://www.[facility].org/arthritis/osteo/info.htm http://ods.od.nih.gov/factsheets/vitamind.asp [facility]: 8-769-100-BONE The Calcium Information [place]: Review of Osteoporosis medications Medications that prevent [...] disease, it is asymptomatic and does not leadto pains. Patients with new bone pains require [...] atypical and subtroch. 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 At the [facility], we work as a team for your care, along with Nurse Practitioners, PhysicianAssistants, Nurses and Medical Assistants. It is a privilege and honor to serve you. Thank you for choosing The [facility] for your healthcare. Sincerely, Nidia Ascencio APRN.PIANO MOVER PAST MEDICAL HISTORY Diagnosis Date Monoclonal gammopathy [...] developed and its performance characteristics determined by [facility] Medicine [place] ([facility] It has not been cleared or approved by the FDA. -[facility] is regulated under CLIA as qualified to [...] 147 53 - 334 mg/dL Final MPA Chinle, Serum Date Value Ref Range Status 08/19/2018 1,020 534 - 1,267 mg/dL Final MPA Lambda, Serum Date Value Ref Range Status 08/19/2018 551 253 - 653 mg/dL Final MPA Chinle/Lambda Ratio Date Value Ref Range Status 08/19/2018 [...] , Gender: Male SCANNER INFORMATION: DXA Model: AllPeers W [id number] SITE SCANNED: Lumbar spine and left hip [...] www.nof.org International Society of Clinical Densitometry www.iscd.org Fur Stretcher: [id number] Transcribe Date/Time: Sep 23 2022 10:28A Dictated by : DARRIAN DUBON MD This examination was interpreted and the report reviewed and electronically signed by: DARRIAN DUBON MD on Sep 28 2022 6:46PM EST documented in this encounterZ[facility]04-[facility]-2024 Miscellaneous Notes* Telephone Encounter - Estephania Devine LPN - 02/16/2024 9:54 AM EDT Spoke with patient. Will be seeing Dr Beto García, on 02/26/24. Results and consult faxed with confirmation. * Telephone Encounter - Kelli Rice MA - 02/12/2024 8:39 AM EDT Left message for patient to call office regarding below. Pt has a upcoming appt with Nidia in February. I do not see a appt with GI please verify with pt when he returns call * Telephone Encounter - Nidia Ascencio APRN.PIANO MOVER - 02/11/2024 1:23 PM EDT Please call patient I see she has [...] 113 U/L 211 (H) documented in this encounterZanesville City Hospital06-20-2023 Miscellaneous Notes* Telephone Encounter - Kelli Rice MA - 05/05/2023 10:50 AM EDT Faxed dental clearance letter to [facility] [phone]. * Telephone Encounter - Donna Keller - 05/05/2023 8:26 AM EDT LMOM for patient to call the office to schedule follow up in about 2 months (around 07/04/2023), or labs at least 1 week prior, for ov and reclast in 2-3 months , please precert. Please warn transfer to the Infusion center * Telephone Encounter - Anais aPte - 05/04/2023 3:18 PM EDT CC chart send: Return in about 2 months (around 07/04/2023), or labs at least 1 week prior, for ov and reclast in 2-3 months , please precert. Please schedule as requested. Anais Pate May 04, 2023 3:18 PM * Telephone Encounter - Estephania Devine LPN - 05/04/2023 1:24 PM EDT Spoke with Reggie at [facility], Letter can be faxed to Dr Mil Farrell for signing at [phone]. * Telephone Encounter - Nidia Ascencio APRN.CNP - 05/04/2023 12:23 PM EDT Please call for dental clearance All procedures complete, infection free, no upcoming dental procedure and ok with dentist prior to reclast If they need a letter may make one for them to send back [facility] [phone] documented in this encounterZanesville City Hospital06-19-2023 Instructions* Patient Instructions* Nidia Ascencio APRN.PIANO MOVER - 05/04/2023 12:16 PM EDT -PLEASE NOTE THAT WE REVIEW ALL YOUR TEST RESULTS AT YOUR NEXT FOLLOW UP VISIT WITH YOU. IF ANY ABNORMAL LAB REQUIRES SOONER ATTENTION, WE WILL CONTACT YOU. -If you have signed up on [employer]rah[employer], we will release your test results through [employer]. I wish you the best of health [...] and sulfasalazine, but discuss first with your assurance analyst. Supplements recommended Vitamin B12: 500 to 1000 [...] taken with good fat to be absorbed. Examplesof healthy fat include nuts, seeds, avocados, olives [...] track your nutrition and calcium intake on www.NavSemi Energy.GameGenetics This provides macro and micronutrient intake and requirements. - You can track your calcium intake on OKCoinometer.GameGenetics or any other calcium tracker of your [...] consume. For your Ulcerative Colitis it is bestto avoid all animal protein. If you need [...] now for a cost, such as at www.Liberata. -When eating a whole food plant based [...] weight management, memoryand brain healthy, bone health. - You can track your nutrition and calcium intake on www.NavSemi Energy.GameGenetics This provides macro and micronutrient intake and [...] that features the Whole Plant Based diet, [place] over knives (see video online and visit website). Another movie that was recently released is: Eating You Alive (you can find it at [employer]) and The P[employer] ChangeJin-Magic movie Dr. Fauzia Ansari is a [facility] physician who is an expert in Whole Plant based diet. His website is [employer]. His research highlights the benefits of the Whole food plant based diet in reversing and preventing heart disease. Mrs. Ansari (his ) has a cookbook with many recipes on whole plant based food: The Prevent and Reverse Heart Disease cookbook. 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 Dr. Rock Velazco, has a website and free angélica to help get started on a whole plant based diet, at www.pcrm.org and you can log on for free for his 21-Day Kickstart with meals and recipes to follow for21 days. There is also a free angélica for that. He has multiple free videos and YouTube, for example: Wolonge [email or web address] , [email or web address] He has written multiple books, including Power Quellan for the Brain, The Cheese Trap, Dr. Rock Velazco's Program for Reversing Diabetes, Your Body in Balance Dr. Anthony Carlson has shown the benefit of a starch based whole food plant based diet to his Rheumatoid Arthritis patients, as well as patient with diabetes II, hypertension, obesity, multiple sclerosis, heart disease, acne, and other, his website: www.debra.GameGenetics Dr. Yayo Allred is a renowned formulation scientist, who has studied and researched the benefits of the Whole plant based diet. He has also researched the adverse effects of animal proteins on health. He presents many of his research findings in his book The Selden study. Dr. Gerber Becker has completed many research trials proving the reversal of diseases, such as heart disease and early prostate cancer, with healthy lifestyle and the Whole Plant based diet. Dr. Gerber Becker website is: www.carmenAmplion Clinical Communications.GameGenetics His new book: Undo It, has evidence based information and guide to following this healthy lifestyle. Dr. Cody Dillon has dedicated a website and additional time to reviewing all food related articles and research and presents them in his power point presentation and on his website at: nutritionfacts.org which is all free. Dr. Dillon has multiple free videos and YouTube, for example [email or web address] and [email or web address]. He has written multiple books including: How Not To and How Not To Diet He is now working on his next book: How Not To Age Dr. Danitza Dash (from the [facility]), has articles on the following website: [employer].GameGenetics Also, you could find additional information on practical to follow recipes by reading or watching online and YouTube such as: Doll Wig Hackler BARBRA, Cooking With Plants, The Vegan Corner (recipes from an [place] Doll Wig Hackler), The Whole Foods Plant Based Cooking Show and visiting the provided websites for additional information on the whole plant based benefit and cooking recipes. You can also consider watching the vlogs of some of the plant based Athletes such as Fausto Ewing Derek on ManyWho Nutrition. Dr. Maryan Holguin (a psychiatrist who [...] intolerant, consider gluten free diet. Gluten could leadto increased inflammation in the bowels and body [...] - Gentle Yoga Anyone Can Do Anywhere www.LiquidSpace.GameGenetics/yoga Also on youtube: yoga with Karlie 3- [...] based diet, it is recommended to take UtcldazL22, sublingual, dissolve under the tongue, take once daily. Vitamin B12 is available over the counter, dose could be 2500 mcg, and can be taken once a week, and if your blood levels are low, you mayneed to take it once daily or a higher dose. Raw: Garlic, Cilantro, [place] nuts, Pumpkin seeds, [place] seeds and Flax seed powder have been reported to help with certain metal detoxification such as mercury. [place]-3 plant based rich foods are good anti-inflammatory [...] the Whole Plant Based Diet, by watching [place] over ConnectFu movie and then review website. There are many other resources and educational information on the Whole plant based diet on the Internet and documentaries. There are other resources for wellness that you can also benefit from, such as the [facility] website, [facility]org and includes Plant based and Mediterranean diet, yoga and meditation. Please avoid all dairy products. You could use non-dairy milk such as Flax milk, Cashew milk, [place] milk, Rice milk, Oat milk or Hemp [...] milk, you can use coconut water or plainwater instead. Other smoothies, including green smoothies, are also very healthy and highly anti-inflammatory. Forexample fruits (such as banana or frozen raul [...] the dose necessary to achieve a Vitamin D25-OH blood level of >31 and preferably closer [...] Osteoporosis Foundation) http://www.osteo.org/osteolinks.asp National Institutes of Health: 7-723-856-BONE The Calcium Information [place]: -Non-Dairy, Plant based Milk, can contain in1 glass up to 450 mg of calcium (300 to 450 mg) Exampled include Oat Milk, Flax Milk, [place] Milk, Cashew Milk, Soy Milk, Peas Milk general health and well being Examples of Food Sources of Calcium from [facility] Food Milligrams (mg) per serving Percent DV* Soymilk, calcium-fortified, 8 ounces 299 30 [place] juice, calcium-fortified, 6 ounces 261 26 Tofu, firm, made with calcium sulfate, cup* 253 25 Tofu, soft, made with calcium sulfate, cup* 138 14 Gqgfj-jq-bdq cereal, calcium-fortified, 1 cup 100-1,000 10-100 Turnip greens, fresh, boiled, cup 99 10 Kale, raw, chopped, 1 cup 100 10 Kale, fresh, cooked, 1 cup 94 9 Israeli cabbage, bok marin, raw, shredded, 1 cup 74 7 Bread, white, 1 slice 73 7 Tortilla, corn, qkfpz-gs-gytq/marshall, one 6 diameter 46 5 Tortilla, flour, cmrav-od-foft/marshall, one 6 diameter 32 3 Bread, whole-wheat, 1 slice 30 3 Broccoli, raw, cup 21 2 * DV = Daily Value. DVs were developed by the U.S. Food and Drug Administration to help consumers compare the nutrient contents among products within the context of a total daily diet. The U.S. Department of Agriculture s (USDA s) Nutrient Database Web site lists the nutrient contentof many foods and provides comprehensive list of [...] daily with a meal; Certain patients require 7834-1761 iu daily and in patients deficient in [...] bones. Studies show approximately 50% of [place] men and women are vitamin D deficient [...] available from: www.nof.org (the national osteoporosis foundation) http://www.[facility].org/arthritis/osteo/info.htm http://ods.od.nih.gov/factsheets/vitamind.asp National Institutes of Health: 3-054-832-BONE The Calcium Information [place]: At the [facility], we work as a team for your care, along with Nurse Practitioners, PhysicianAssistants, Nurses and Medical Assistants. It is a privilege and honor to serve you. Thank you for choosing The [facility] for your healthcare. Sincerely, Nidia Ascencio APRN.JOSE documented in this [facility]06[facility] History of Present illness Narrative* Nidia Ascencio APRN.CNP - 05/04/2023 11:44 AM EDT Follow up telephone visit Telephone visit Jam Toscano is a very nice 58 year old male seen for Rheumatoid Arthritis and Osteoporosis Additional details per last visit note Patient agrees to telephone visit Subjective: Patient reports: First appt did full mouth xray 03/04 Pulled 5 teeth on 03/25 Drilled on filled tooth that was there Goes back fitting denture 09/09 [facility] [phone] GI - colitis 03/23 Had colonoscopy - [...] multiple sites with positive rheumatoid factor (HCC) (primaryencounter diagnosis) Z71.2 Encounter to discuss test results [...] in patient's severe chronic Rheumatoid Arthritis. His assurance analyst has switched him to Humira as he [...] IBD and intermittent steroid therapy from his assurance analyst. Pharmacologic therapy is still indicated and recommended, however, are still awaiting completion ofdental work. -I have referred him to Hematology [...] if necessary, CC, NOF and ISCD and [facility]. PLAN: [facility] on 05/04/23 VITAMIN D 25 HYDROXY RENAL FUNCTION PANEL MONOCLONAL PROT UR W/INTERP Labs prior to next visit Reclast - You are on entyvio and sulfasalazine for your Ulcerative Colitis. These are also treating your Rheumatoid Arthritis. During infections you will need to hold the entyvio and sulfasalazine, but discuss first with your assurance analyst. Supplements recommended Vitamin B12: 500 to 1000 [...] Boniva, Fosamax/alendronate), these are taken either once aweek or once a month (depending on med [...] in the office. This medication is given fci, indefinitely. Prolia should not be discontinued without proven back up therapy, due to incr risk of vert fractures after withdrawing Prolia. Discussed recent research findings and recommendations that Prolia if started and continued past 1 to 2 yrs, may need to be indefinitely, for now, until new studies show effective transition therapy.Advised that Prolia should not be discontinued due to reported increased risk of bone loss and vertebral fractures after withdrawing Prolia. Multiple studies have looked into transition therapy. Recent study from [facility] Slim et al, 04/11/2020, reported one [...] required another infusion of zoledronic acid after 6months from their first one. In some patients [...] bisphosphonate or Prolia after that, based onguidelines. Medication that both prevents bone loss and builds bone density and prevents Osteoporosis fractures: -Subcutaneous Evenity (romosozumab, an anti-sclerostin monoclonal antibody). This is a monthly subcutaneous injection (2 injections every visit, by the nurse). This is given for 1 year and if furthertreatment is required after that, we would transition to Prolia or a bisphosphonate. It has listed CV risk and warning that it should not be initiated in patients who have had an IN orstroke in the preceding year. This is only [...] disease, it is asymptomatic and does not leadto pains. Patients with new bone pains require [...] atypical and subtroch. fracture of femur with fci use of bisphosphonates/alendronate and anti-resorptive agents, there [...] the care of your patient. Nidia Ascencio APRN.[facility] Jose L Lackey MD, MD Patient Instructions -PLEASE NOTE THAT WE REVIEW ALL YOUR TEST RESULTS AT YOUR NEXT FOLLOW UP VISIT WITH YOU. IF ANY ABNORMAL LAB REQUIRES SOONER ATTENTION, WE WILL CONTACT YOU. -If you have signed up on [employer], we will release your test results through [employer]. I wish you the best of health [...] and sulfasalazine, but discuss first with your assurance analyst. Supplements recommended Vitamin B12: 500 to 1000 [...] taken with good fat to be absorbed. Examplesof healthy fat include nuts, seeds, avocados, olives [...] track your nutrition and calcium intake on www.NavSemi Energy.GameGenetics This provides macro and micronutrient intake and requirements. - You can track your calcium intake on NavSemi Energy.GameGenetics or any other calcium tracker of your [...] consume. For your Ulcerative Colitis it is bestto avoid all animal protein. If you need [...] now for a cost, such as at www.Liberata. -When eating a whole food plant based [...] weight management, memoryand brain healthy, bone health. - You can track your nutrition and calcium intake on www.cronometer.GameGenetics This provides macro and micronutrient intake and [...] that features the Whole Plant Based diet, [place] over knives (see video online and visit website). Another movie that was recently released is: Eating You Alive (you can find it at [employer]) and The [employer] ChangeJin-Magic movie Dr. Fauzia Ansari is a [facility] physician who is an expert in Whole Plant based diet. His website is [employer]. His research highlights the benefits of the Whole food plant based diet in reversing and preventing heart disease. Mrs. Ansari (his ) has a cookbook with many recipes on whole plant based food: The Prevent and Reverse Heart Disease cookbook. 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 Dr. Rock Velazco, has a website and free angélica to help get started on a whole plant based diet, at www.pcrm.org and you can log on for free for his 21-Day Kickstart with meals and recipes to follow for21 days. There is also a free angélica for that. He has multiple free videos and YouTube, for example: ht tps://youtu.[email or web address] , [email or web address] He has written multiple books, including Power [...] heart disease, acne, and other, his website: www.debra.GameGenetics Dr. Yayo Allred is a renowned formulation scientist, who has studied and researched the benefits of the Whole plant based diet. He has also researched the adverse effects of animal proteins on health. He presents many of his research findings in his book The Sel[place] study. Dr. Gerber Becker has completed many research trials proving the reversal of diseases, such as heart disease and early prostate cancer, with healthy lifestyle and the Whole Plant based diet. Dr. Gerber Becker website is: www.carmenAmplion Clinical Communications.GameGenetics His new book: Undo It, has evidence based information and guide to following this healthy lifestyle. Dr. Cody Dillon has dedicated a website and additional time to reviewing all food related articles and research and presents them in his power point presentation and on his website at: nutritionfacts.org which is all free. Dr. Dillon has multiple free videos and YouTube, for example [email or web address].be/[email or web address] and [email or web address].Love Home [email or web address]. He has written multiple books including: How Not To and How Not To Diet He is now working on his next book: How Not To Age Dr. Danitza Dash (from the [facility]), has articles on the following website: [employer].GameGenetics Also, you could find additional information on practical to follow recipes by reading or watching online and YouTube such as: Chef BELLE, Cooking With Plants, The Vegan Corner (recipes from an [place] Doll Wig Hackler), The Whole Foods Plant Based Cooking Show and visiting the provided websites for additional information on the whole plant based benefit and cooking recipes. You can also consider watching the vlogs of some of the plant based Athletes such as Fausto Ewing Derek on ManyWho Nutrition. Dr. Maryan Holguin (a psychiatrist who [...] intolerant, consider gluten free diet. Gluten could leadto increased inflammation in the bowels and body [...] - Gentle Yoga Anyone Can Do Anywhere www.ChinaNet Online Holdings/yoga Also on youtube: yoga with Karlie 3- [...] based diet, it is recommended to take KgtssizS53, sublingual, dissolve under the tongue, take once daily. Vitamin B12 is available over the counter, dose could be 2500 mcg, and can be taken once a week, and if your blood levels are low, you mayneed to take it once daily or a higher dose. Raw: Garlic, Cilantro, [place] nuts, Pumpkin seeds, [place] seeds and Flax seed powder have been reported to help with certain metal detoxification such as mercury. [place]-3 plant based rich foods are good anti-inflammatory [...] the Whole Plant Based Diet, by watching [place] over ConnectFu movie and then review website. There are many other resources and educational information on the Whole plant based diet on the Internet and documentaries. There are other resources for wellness that you can also benefit from, such as the [facility] website, [facility]org and includes Plant based and Mediterranean diet, yoga and meditation. Please avoid all dairy products. You could use non-dairy milk such as Flax milk, Cashew milk, [place] milk, Rice milk, Oat milk or Hemp [...] milk, you can use coconut water or plainwater instead. Other smoothies, including green smoothies, are also very healthy and highly anti-inflammatory. Forexample fruits (such as banana or frozen raul [...] the dose necessary to achieve a Vitamin D25-OH blood level of >31 and preferably closer [...] Osteoporosis Foundation) http://www.osteo.org/osteolinks.asp National Institutes of Health: 5-572-533-BONE The Calcium Information Center: -Non-Dairy, Plant based Milk, can contain in1 glass up to 450 mg of calcium (300 to 450 mg) Exampled include Oat Milk, Flax Milk, [place] Milk, Cashew Milk, Soy Milk, Peas Milk general health and well being Examples of Food Sources of Calcium from NIH Food Milligrams (mg) per serving Percent DV* Soymilk, calcium-fortified, 8 ounces 299 30 [place] juice, calcium-fortified, 6 ounces 261 26 Tofu, firm, made with calcium sulfate, cup* 253 25 Tofu, soft, made with calcium sulfate, cup* 138 14 Nczal-kg-axx cereal, calcium-fortified, 1 cup 100-1,000 10-100 Turnip greens, fresh, boiled, cup 99 10 Kale, raw, chopped, 1 cup 100 10 Kale, fresh, cooked, 1 cup 94 9 Israeli cabbage, bok marin, raw, shredded, 1 cup 74 7 Bread, white, 1 slice 73 7 Tortilla, corn, hmtzp-yn-qxge/marshall, one 6 diameter 46 5 Tortilla, flour, qmqpz-md-gxvm/marshall, one 6 diameter 32 3 Bread, whole-wheat, 1 slice 30 3 Broccoli, raw, cup 21 2 * DV = Daily Value. DVs were developed by the U.S. Food and Drug Administration to help consumers compare the nutrient contents among products within the context of a total daily diet. The U.S. Department of Agriculture s (USDA s) Nutrient Database Web site lists the nutrient contentof many foods and provides comprehensive list of [...] daily with a meal; Certain patients require 1691-5317 iu daily and in patients deficient in [...] bones. Studies show approximately 50% of [place] men and women are vitamin D deficient [...] available from: www.nof.org (the national osteoporosis foundation) http://www.[facility].org/arthritis/osteo/info.htm http://ods.od.nih.gov/factsheets/vitamind.asp National Institutes of Health: 8-983-040-BONE [facility] Calcium Information [place]: At the [facility], we work as a team for your care, along with Nurse Practitioners, PhysicianAssistants, Nurses and Medical Assistants. It is a privilege and honor to serve you. Thank you for choosing The [facility] for your healthcare. Sincerely, Nidia Ascencio APRN.[facility] PAST MEDICAL HISTORY Diagnosis Date Monoclonal gammopathy [...] three times daily (3 in am, 3 noon,2 pm), per assurance analyst No current facility-administered medications for this visit. [...] developed and its performance characteristics determined by [facility] Medicine [place] ([facility]). It has not been cleared or approved by the FDA. -[facility] is regulated under CLIA as qualified to [...] 147 53 - 334 mg/dL Final MPA Chinle, Serum Date Value Ref Range Status 08/19/2018 1,020 534 - 1,267 mg/dL Final MPA Lambda, Serum Date Value Ref Range Status 08/19/2018 551 253 - 653 mg/dL Final MPA Chinle/Lambda Ratio Date Value Ref Range Status 08/19/2018 [...] , Gender: Male SCANNER INFORMATION: DXA Model: AllPeers W [id number] SITE SCANNED: Lumbar spine and left hip [...] www.nof.org International Society of Clinical Densitometry www.iscd.org Fur Stretcher: [id number] Transcribe Date/Time: Sep 23 2022 10:28A Dictated by : DARRIAN DUBON MD This examination was interpreted and the report reviewed and electronically signed by: DARRIAN DUBON MD on Nov 13 2022 6:46PM EST documented in this encounterZ[facility]04-17-2023 Instructions* Patient Instructions* Nidia Ascencio APRN.JOSE - 03/02/2023 11:10 AM EDT -PLEASE NOTE THAT WE REVIEW ALL YOUR TEST RESULTS AT YOUR NEXT FOLLOW UP VISIT WITH YOU. IF ANY ABNORMAL LAB REQUIRES SOONER ATTENTION, WE WILL CONTACT YOU. -If you have signed up on [employer], we will release your test results through [employer]. I wish you the best of health [...] and sulfasalazine, but discuss first with your assurance analyst. Supplements recommended Vitamin B12: 500 to 1000 [...] taken with good fat to be absorbed. Examplesof healthy fat include nuts, seeds, avocados, olives [...] track your nutrition and calcium intake on www.MyClean This provides macro and micronutrient intake and requirements. - You can track your calcium intake on MyClean or any other calcium tracker of your [...] consume. For your Ulcerative Colitis it is bestto avoid all animal protein. If you need [...] now for a cost, such as at www.Liberata. -When eating a whole food plant based [...] weight management, memoryand brain healthy, bone health. - You can track your nutrition and calcium intake on www.cronometer.GameGenetics This provides macro and micronutrient intake and [...] that features the Whole Plant Based diet, [place] over knives (see video online and visit website). Another movie that was recently released is: Eating You Alive (you can find it at [employer]) and The Game Changers movie Dr. Fauzia Ansari is a [facility] physician who is an expert in Whole Plant based diet. His website is [employer]. His research highlights the benefits of the Whole food plant based diet in reversing and preventing heart disease. Mrs. Ansari (his ) has a cookbook with many recipes on whole plant based food: The Prevent and Reverse Heart Disease cookbook. 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 Dr. Rock Velazco, has a website and free angélica to help get started on a whole plant based diet, at www.pcrzappit.org and you can log on for free for his 21-Day Kickstart with meals and recipes to follow for21 days. There is also a free angélica for that. He has multiple free videos and YouTube, for example: ht [email or web address].Love Home [email or web address] , [email or web address] He has written multiple books, including iJigg.com for the Brain, The Cheese Trap, Dr. Rock Velazco's Program for Reversing Diabetes, Your Body in Balance Dr. Anthony Carlson has shown the benefit of a starch based whole food plant based diet to his Rheumatoid Arthritis patients, as well as patient with diabetes II, hypertension, obesity, multiple sclerosis, heart disease, acne, and other, his website: www.debra.GameGenetics Dr. Yayo Allred is a renowned formulation scientist, who has studied and researched the benefits of the Whole plant based diet. He has also researched the adverse effects of animal proteins on health. He presents many of his research findings in his book The Sel[place] study. Dr. Gerber Becker has completed many research trials proving the reversal of diseases, such as heart disease and early prostate cancer, with healthy lifestyle and the Whole Plant based diet. Dr. Gerber Becker website is: www.carmenAmplion [employer] Communications.GameGenetics His new book: Undo It, has evidence based information and guide to following this healthy lifestyle. Dr. Cody Dillon has dedicated a website and additional time to reviewing all food related articles and research and presents them in his power point presentation and on his website at: nutritionfacts.org which is all free. Dr. Dillon has multiple free videos and YouTube, for example https://[employer].be/aSgNkhgVtks and [email or web address]. He has written multiple books including: How Not To and How Not To Diet He is now working on his next book: How Not To Age Dr. Danitza Dash (from the [facility]), has articles on the following website: [employer] Also, you could find additional information on practical to follow recipes by reading or watching online and YouTube such as: Doll Wig Hackler AJ, Cooking With Plants, The Vegan Corner (recipes from an [place] Doll Wig Hackler), The Whole Foods Plant Based Cooking Show and visiting the provided websites for additional information on the whole plant based benefit and cooking recipes. You can also consider watching the vlogs of some of the plant based Athletes such as Fausto Ewing Derek on Audience. Dr. Maryan Holguin (a psychiatrist who suffered [...] intolerant, consider gluten free diet. Gluten could leadto increased inflammation in the bowels and body [...] - Gentle Yoga Anyone Can Do Anywhere www.LiquidSpace.GameGenetics/yoga Also on youtube: yoga with Karlie 3- [...] based diet, it is recommended to take ZisknrlM09, sublingual, dissolve under the tongue, take once daily. Vitamin B12 is available over the counter, dose could be 2500 mcg, and can be taken once a week, and if your blood levels are low, you mayneed to take it once daily or a higher dose. Raw: Garlic, Cilantro, [place] nuts, Pumpkin seeds, [place] seeds and Flax seed powder have been reported to help with certain metal detoxification such as mercury. [place]-3 plant based rich foods are good anti-inflammatory [...] the Whole Plant Based Diet, by watching [place] over ConnectFu movie and then review website. There are many other resources and educational information on the Whole plant based diet on the Internet and documentaries. There are other resources for wellness that you can also benefit from, such as the [facility] website, [facility]org and includes Plant based and Mediterranean diet, yoga and meditation. Please avoid all dairy products. You could use non-dairy milk such as Flax milk, Cashew milk, [place] milk, Rice milk, Oat milk or Hemp [...] milk, you can use coconut water or plainwater instead. Other smoothies, including green smoothies, are also very healthy and highly anti-inflammatory. Forexample fruits (such as banana or frozen raul [...] the dose necessary to achieve a Vitamin D25-OH blood level of >31 and preferably closer [...] following resources: www.nof.org (National Osteoporosis Foundation) http://www.osteo.org/osteolinks.asp [facility]: 0-213-186-BONE The Calcium Information [place]: -Non-Dairy, Plant based Milk, can contain in1 glass up to 450 mg of calcium (300 to 450 mg) Exampled include Oat Milk, Flax Milk, [place] Milk, Cashew Milk, Soy Milk, Peas Milk general health and well being Examples of Food Sources of Calcium from [facility] Food Milligrams (mg) per serving Percent DV* Soymilk, calcium-fortified, 8 ounces 299 30 [place] juice, calcium-fortified, 6 ounces 261 26 Tofu, firm, made with calcium sulfate, cup* 253 25 Tofu, soft, made with calcium sulfate, cup* 138 14 Gfxzl-rb-eug cereal, calcium-fortified, 1 cup 100-1,000 10-100 Turnip greens, fresh, boiled, cup 99 10 Kale, raw, chopped, 1 cup 100 10 Kale, fresh, cooked, 1 cup 94 9 Israeli cabbage, bok marin, raw, shredded, 1 cup 74 7 Bread, white, 1 slice 73 7 Tortilla, corn, osrgm-ah-kjrt/marshall, one 6 diameter 46 5 Tortilla, flour, jgelt-tt-dsyi/marshall, one 6 diameter 32 3 Bread, whole-wheat, 1 slice 30 3 Broccoli, raw, cup 21 2 * DV = Daily Value. DVs were developed by the U.S. Food and Drug Administration to help consumers compare the nutrient contents among products within the context of a total daily diet. The U.S. Department of Agriculture s (USDA s) Nutrient Database Web site lists the nutrient contentof many foods and provides comprehensive list of [...] daily with a meal; Certain patients require 3538-2832 iu daily and in patients deficient in [...] bones. Studies show approximately 50% of [place] men and women are vitamin D deficient [...] available from: www.nof.org (the national osteoporosis foundation) http://www.[facility].org/arthritis/osteo/info.htm http://ods.od.nih.gov/factsheets/vitamind.asp [place] [facility]: 8-400-015-BONE The Calcium Information [place]: At the [facility], we work as a team for your care, along with Nurse Practitioners, PhysicianAssistants, Nurses and Medical Assistants. It is a privilege and honor to serve you. Thank you for choosing The [facility] for your healthcare. Sincerely, Nidia Ascencio APRN.JOSE documented in this encounterZ[facility]ville [facility] Hospital04-17-2023 History of Present illness Narrative* Nidia Ascencio APRN.CNP - 03/02/2023 11:00 AM EDT Follow up Telephone visit Jam Toscano is [...] multiple sites with positive rheumatoid factor (HCC) (primaryencounter diagnosis) Z71.2 Encounter to discuss test results [...] in patient's severe chronic Rheumatoid Arthritis. His assurance analyst has switched him to Humira as he [...] IBD and intermittent steroid therapy from his assurance analyst. Pharmacologic therapy is still indicated and recommended, however, are still awaiting completion ofdental work. -I have referred him to Hematology [...] if necessary, CC, NOF and ISCD and [facility]. PLAN: No orders found for this visit on 03/02/23. Please continue on yout Vitamin D 5000 international units once daily with meals and your multivitamin - You are on Humira and sulfasalazine for your Ulcerative Colitis. These are also treating your Rheumatoid Arthritis. During infections you will need to hold the Humira and sulfasalazine, but discuss first with your assurance analyst. Supplements recommended Vitamin B12: 500 to 1000 [...] Boniva, Fosamax/alendronate), these are taken either once aweek or once a month (depending on med [...] in the office. This medication is given fci, indefinitely. Prolia should not be discontinued without proven back up therapy, due to incr risk of vert fractures after withdrawing Prolia. Discussed recent research findings and recommendations that Prolia if started and continued past 1 to 2 yrs, may need to be indefinitely, for now, until new studies show effective transition therapy.Advised that Prolia should not be discontinued due to reported increased risk of bone loss and vertebral fractures after withdrawing Prolia. Multiple studies have looked into transition therapy. Recent study from [facility] Slim et al, 04/11/2020, reported one [...] required another infusion of zoledronic acid after 6months from their first one. In some patients [...] bisphosphonate or Prolia after that, based onguidelines. Medication that both prevents bone loss and builds bone density and prevents Osteoporosis fractures: -Subcutaneous Evenity (romosozumab, an anti-sclerostin monoclonal antibody). This is a monthly subcutaneous injection (2 injections every visit, by the nurse). This is given for 1 year and if furthertreatment is required after that, we would transition to Prolia or a bisphosphonate. It has listed CV risk and warning that it should not be initiated in patients who have had an [place] orstroke in the preceding year. This is only [...] disease, it is asymptomatic and does not leadto pains. Patients with new bone pains require [...] atypical and subtroch. fracture of femur with rocket engine component mechanic use of bisphosphonates/alendronate and anti-resorptive agents, there [...] the care of your patient. Nidia Ascencio APRN.[facility] cc Jose L Lackey MD, Patient Instructions -PLEASE NOTE THAT WE REVIEW ALL YOUR TEST RESULTS AT YOUR NEXT FOLLOW UP VISIT WITH YOU. IF ANY ABNORMAL LAB REQUIRES SOONER ATTENTION, WE WILL CONTACT YOU. -If you have signed up on [employer], we will release your test results through [employer]. I wish you the best of health [...] and sulfasalazine, but discuss first with your assurance analyst. Supplements recommended Vitamin B12: 500 to 1000 [...] taken with good fat to be absorbed. Examplesof healthy fat include nuts, seeds, avocados, olives [...] track your nutrition and calcium intake on www.NavSemi Energy.GameGenetics This provides macro and micronutrient intake and requirements. - You can track your calcium intake on MyClean or any other calcium tracker of your [...] consume. For your Ulcerative Colitis it is bestto avoid all animal protein. If you need [...] now for a cost, such as at www.Liberata. -When eating a whole food plant based [...] weight management, memoryand brain healthy, bone health. - You can track your nutrition and calcium intake on www.NavSemi Energy.GameGenetics This provides macro and micronutrient intake and [...] that features the Whole Plant Based diet, [place] over knives (see video online and visit website). Another movie that was recently released is: Eating You Alive (you can find it at [employer]) and The Game Changers movie Dr. Fauzia Ansari is a [facility] physician who is an expert in Whole Plant based diet. His website is [employer]. His research highlights the benefits of the Whole food plant based diet in reversing and preventing heart disease. Mrs. Ansari (his ) has a cookbook with many recipes on whole plant based food: The Prevent and Reverse Heart Disease cookbook. 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 Dr. Rock Velazco, has a website and free angélica to help get started on a whole plant based diet, at www.pcrm.org and you can log on for free for his 21-Day Kickstart with meals and recipes to follow for21 days. There is also a free angélica for that. He has multiple free videos and YouTube, for example: ht tps://youtu.be/[email or web address] , https://youtu.be/ZxNUIzxoe5o He has written multiple books, including Power Quellan for the Brain, The Cheese Trap, Dr. Rock Velazco's Program for Reversing Diabetes, Your Body in Balance Dr. Anthony Carlson has shown the benefit of a starch based whole food plant based diet to his Rheumatoid Arthritis patients, as well as patient with diabetes II, hypertension, obesity, multiple sclerosis, heart disease, acne, and other, his website: www.Opiatalk.GameGenetics Dr. Yayo Allred is a renowned formulation scientist, who has studied and researched the benefits of the Whole plant based diet. He has also researched the adverse effects of animal proteins on health. He presents many of his research findings in his book The Selden study. Dr. Gerber Becker has completed many research trials proving the reversal of diseases, such as heart disease and early prostate cancer, with healthy lifestyle and the Whole Plant based diet. Dr. Gerber Becker website is: www.carmenAm[employer].GameGenetics His new book: Undo It, has evidence [...] To Age Dr. Danitza Dash (from the [facility]), has articles on the following website: [employer].GameGenetics Also, you could find additional information on practical to follow recipes by reading or watching online and YouTube such as: Chef BELLE, Cooking With Plants, The Vegan Corner (recipes from an [place] Doll Wig Hackler), The Whole Foods Plant Based Cooking Show and visiting the provided websites for additional information on the whole plant based benefit and cooking recipes. You can also consider watching the vlogs of some of the plant based Athletes such as Graeme Kamara, Fausto Marmolejo, Agustin on Audience. Dr. Maryan Holguin (a psychiatrist who suffered [...] intolerant, consider gluten free diet. Gluten could leadto increased inflammation in the bowels and body [...] - Gentle Yoga Anyone Can Do Anywhere www.LiquidSpace.GameGenetics/yoga Also on youtube: yoga with Karlie 3- [...] based diet, it is recommended to take AxzcqltM02, sublingual, dissolve under the tongue, take once daily. Vitamin B12 is available over the counter, dose could be 2500 mcg, and can be taken once a week, and if your blood levels are low, you mayneed to take it once daily or a higher dose. Raw: Garlic, Cilantro, [place] nuts, Pumpkin seeds, [place] seeds and Flax seed powder have been reported to help with certain metal detoxification such as mercury. [place]-3 plant based rich foods are good anti-inflammatory [...] the Whole Plant Based Diet, by watching [place] over [employer] movie and then review website. There are many other resources and educational information on the Whole plant based diet on the Internet and documentaries. There are other resources for wellness that you can also benefit from, such as the [facility] website, [facility]org and includes Plant based and Mediterranean diet, yoga and meditation. Please avoid all dairy products. You could use non-dairy milk such as Flax milk, Cashew milk, [place] milk, Rice milk, Oat milk or Hemp [...] milk, you can use coconut water or plainwater instead. Other smoothies, including green smoothies, are also very healthy and highly anti-inflammatory. Forexample fruits (such as banana or frozen raul [...] the dose necessary to achieve a Vitamin D25-OH blood level of >31 and preferably closer [...] Osteoporosis Foundation) http://www.osteo.org/osteolinks.asp National Institutes of Health: 1-667-507-BONE [facility] Calcium Information [place]: -Non-Dairy, Plant based Milk, can contain in1 glass up to 450 mg of calcium (300 to 450 mg) Exampled include Oat Milk, Flax Milk, [place] Milk, Cashew Milk, Soy Milk, Peas Milk general health and well being Examples of Food Sources of Calcium from [facility] Food Milligrams (mg) per serving Percent DV* Soymilk, calcium-fortified, 8 ounces 299 30 [place] juice, calcium-fortified, 6 ounces 261 26 Tofu, firm, made with calcium sulfate, cup* 253 25 Tofu, soft, made with calcium sulfate, cup* 138 14 Gnema-lz-avb cereal, calcium-fortified, 1 cup 100-1,000 10-100 Turnip greens, fresh, boiled, cup 99 10 Kale, raw, chopped, 1 cup 100 10 Kale, fresh, cooked, 1 cup 94 9 Israeli cabbage, bok marin, raw, shredded, 1 cup 74 7 Bread, white, 1 slice 73 7 Tortilla, corn, miofm-fb-yedy/marshall, one 6 diameter 46 5 Tortilla, flour, bfncr-eg-szbn/marshall, one 6 diameter 32 3 Bread, whole-wheat, 1 slice 30 3 Broccoli, raw, cup 21 2 * DV = Daily Value. DVs were developed by the U.S. Food and Drug Administration to help consumers compare the nutrient contents among products within the context of a total daily diet. The U.S. Department of Agriculture s (USDA s) Nutrient Database Web site lists the nutrient contentof many foods and provides comprehensive list of [...] daily with a meal; Certain patients require 0935-4693 iu daily and in patients deficient in [...] bones. Studies show approximately 50% of [place] men and women are vitamin D deficient [...] available from: www.nof.org (the national osteoporosis foundation) http://www.[facility].org/arthritis/osteo/info.htm http://ods.od.nih.gov/factsheets/vitamind.asp National Institutes of Health: 1-817-343-BONE [facility] Calcium Information [place]: At the [facility], we work as a team for your care, along with Nurse Practitioners, PhysicianAssistants, Nurses and Medical Assistants. It is a privilege and honor to serve you. Thank you for choosing The [facility] for your healthcare. Sincerely, Nidia Ascencio APRN.[facility]ANO MOVER PAST MEDICAL HISTORY Diagnosis Date Monoclonal gammopathy [...] mg subcutaneously every 2 weeks. Prescribed by Online Marketing Coordinator : Nel Lebron MD Previously prescr. by [...] three times daily (3 in am, 3 noon,2 pm), per assurance analyst No current facility-administered medications for this visit. [...] developed and its performance characteristics determined by [facility] Laboratory Medicine [place] ([facility]). It has not been cleared or approved by the FDA. [facility] is regulated under CLIA as qualified [...] 147 53 - 334 mg/dL Final MPA Chinle, Serum Date Value Ref Range Status 08/19/2018 1,020 534 - 1,267 mg/dL Final MPA Lambda, Serum Date Value Ref Range Status 08/19/2018 551 253 - 653 mg/dL Final MPA Chinle/Lambda Ratio Date Value Ref Range Status 08/19/2018 [...] EXAM: Sep 23 2022 10:03AM [facility] 0804 - DXA - AXIAL SKELETON / PROCEDURE REASON: multiple diagnoses * * * * Physician Interpretation * * * * EXAMINATION: DXA BONE DENSITOMETRY BD DXA - AXIAL SKELETON PATIENT DEMOGRAPHICS: Age: 57 years, Race: , Gender: Male SCANNER INFORMATION: DXA Model: AllPeers W [id number] SITE SCANNED: Lumbar spine and left hip [...] for accurate comparison. FOR MORE INFORMATION: [facility] for Osteoporosis and Metabolic Bone Disease: www.ccf.org/arthritis/osteo National Osteoporosis Foundation: www.nof.org International Society of Clinical Densitometry www.iscd.org Fur Stretcher: [id number] Transcribe Date/Time: Sep 23 2022 10:28A Dictated by : DARRIAN DUBON MD This examination was interpreted and the report reviewed and electronically signed by: DARRIAN DUBON MD on Sep 28 2022 6:46PM EST documented in this encounterZanesville City Hospital03-02-2023 Miscellaneous Notes* Telephone Encounter - Raya Florez MA - 01/15/2023 9:05 AM EST Lm regarding results and recommendations. * Telephone Encounter - iNdia Ascencio APRN.CNP - 01/15/2023 8:58 AM EST Please call patient Normal vit d Please continue current dose * Telephone Encounter - Kelli Rice MA - 01/14/2023 3:17 PM EST Received outside lab results from Zbigniew Mullen ordered by Nidia Ascencio CNP -- 01/12/23 Vit D 40.2 documented in this encounterZanesville City Hospital02-26-2023 Instructions* Patient Instructions* Nidia Ascencio APRN.PIANO MOVER - 01/11/2023 7:57 PM EST -PLEASE NOTE THAT WE REVIEW ALL YOUR TEST RESULTS AT YOUR NEXT FOLLOW UP VISIT WITH YOU. IF ANY ABNORMAL LAB REQUIRES SOONER ATTENTION, WE WILL CONTACT YOU. -If you have signed up on [employer], we will release your test results through [employer]. I wish you the best of health [...] and sulfasalazine, but discuss first with your assurance analyst. Supplements recommended Vitamin B12: 500 to 1000 [...] taken with good fat to be absorbed. Examplesof healthy fat include nuts, seeds, avocados, olives [...] track your nutrition and calcium intake on www.NavSemi Energy.GameGenetics This provides macro and micronutrient intake and requirements. - You can track your calcium intake on MyClean or any other calcium tracker of your [...] consume. For your Ulcerative Colitis it is bestto avoid all animal protein. If you need [...] now for a cost, such as at www.Liberata. -When eating a whole food plant based [...] weight management, memoryand brain healthy, bone health. - You can [...] that features the Whole Plant Based diet, [place] over knives (see video online and visit website). Another movie that was recently released is: Eating You Alive (you can find it at [employer]) and The Game Changers movie Dr. Fauzia Ansari is a [facility] physician who is an expert in Whole Plant based diet. His website is [employer]. His research highlights the benefits of the Whole food plant based diet in reversing and preventing heart disease. Mrs. Ansari (his ) has a cookbook with many recipes on whole plant based food: The Prevent and Reverse Heart Disease cookbook. 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 Dr. Rock Velazco, has a website and free angélica to help get started on a whole plant based diet, at www.pcrzappit.org and you can log on for free for his 21-Day Kickstart with meals and recipes to follow for21 days. There is also a free angélica for that. He has multiple free videos and YouTube, for example: ht tps://youtu.be/[email or web address] , https://youtu.be/JwHADpaus5a He has written multiple books, including iJigg.com for the Brain, The Cheese Trap, Dr. Rock Velazco's Program for Reversing Diabetes, Your Body in Balance Dr. Anthony Carlson has shown the benefit of a starch based whole food plant based diet to his Rheumatoid Arthritis patients, as well as patient with diabetes II, hypertension, obesity, multiple sclerosis, heart disease, acne, and other, his website: www.debra.GameGenetics Dr. Yayo Allred is a renowned formulation scientist, who has studied and researched the benefits of the Whole plant based diet. He has also researched the adverse effects of animal proteins on health. He presents many of his research findings in his book The Selden study. Dr. Gerber Becker has completed many research trials proving the reversal of diseases, such as heart disease and early prostate cancer, with healthy lifestyle and the Whole Plant based diet. Dr. Gerber Becker website is: www.alvaroKewl Innovationseevlyn.GameGenetics His new book: Undo It, has evidence [...] To Age Dr. Danitza Dash (from the [facility]), has articles on the following website: [employer].GameGenetics Also, you could find additional information on practical to follow recipes by reading or watching online and YouTube such as: Doll Wig Hackler AJ, Cooking With Plants, The Vegan Corner (recipes from an [place] Doll Wig Hackler), The Whole Foods Plant Based Cooking Show and visiting the provided websites for additional information on the whole plant based benefit and cooking recipes. You can also consider watching the vlogs of some of the plant based Athletes such as Graeme Kamara, Fausto Marmolejo, Agustin on Audience. Dr. Maryan Holguin (a psychiatrist who suffered [...] intolerant, consider gluten free diet. Gluten could leadto increased inflammation in the bowels and body [...] soda and water (see details from Dr. Yñaez's website nutritionfacts.org) and rinse well with water. 2- Regular Exercise, such as beginner yoga, tommie chi, stretching, cardio, gradual strengthening, pool therapy, physical therapy Come As You Are: YOGA - Gentle Yoga Anyone Can Do Anywhere www.LiquidSpace.GameGenetics/yoga Also on youtube: yoga with Karlie 3- [...] based diet, it is recommended to take AblwgrcE67, sublingual, dissolve under the tongue, take once daily. Vitamin B12 is available over the counter, dose could be 2500 mcg, and can be taken once a week, and if your blood levels are low, you mayneed to take it once daily or a higher dose. Raw: Garlic, Cilantro, [place] nuts, Pumpkin seeds, [place] seeds and Flax seed powder have been reported to help with certain metal detoxification such as mercury. [place]-3 plant based rich foods are good anti-inflammatory [...] the Whole Plant Based Diet, by watching [place] over [employer] movie and then review website. There are many other resources and educational information on the Whole plant based diet on the Internet and documentaries. There are other resources for wellness that you can also benefit from, such as the [facility] website, [facility]org and includes Plant based and Mediterranean diet, yoga and meditation. Please avoid all dairy products. You could use non-dairy milk such as Flax milk, Cashew milk, [place] milk, Rice milk, Oat milk or Hemp [...] milk, you can use coconut water or plainwater instead. Other smoothies, including green smoothies, are also very healthy and highly anti-inflammatory. Forexample fruits (such as banana or frozen raul [...] the dose necessary to achieve a Vitamin D25-OH blood level of >31 and preferably closer [...] following resources: www.nof.org (National Osteoporosis Foundation) http://www.osteo.org/osteolinks.asp [facility]: 4-089-082-BONE [facility] Calcium Information [place]: -Non-Dairy, Plant based Milk, can contain in1 glass up to 450 mg of calcium (300 to 450 mg) Exampled include Oat Milk, Flax Milk, [place] Milk, Cashew Milk, Soy Milk, Peas Milk general health and well being Examples of Food Sources of Calcium from [facility] Food Milligrams (mg) per serving Percent DV* Soymilk, calcium-fortified, 8 ounces 299 30 [place] juice, calcium-fortified, 6 ounces 261 26 Tofu, firm, made with calcium sulfate, cup* 253 25 Tofu, soft, made with calcium sulfate, cup* 138 14 Fwrdn-le-dux cereal, calcium-fortified, 1 cup 100-1,000 10-100 Turnip greens, fresh, boiled, cup 99 10 Kale, raw, chopped, 1 cup 100 10 Kale, fresh, cooked, 1 cup 94 9 Israeli cabbage, bok marin, raw, shredded, 1 cup 74 7 Bread, white, 1 slice 73 7 Tortilla, corn, jvory-xe-qdav/marshall, one 6 diameter 46 5 Tortilla, flour, ypifs-kj-enyh/marshall, one 6 diameter 32 3 Bread, whole-wheat, 1 slice 30 3 Broccoli, raw, cup 21 2 * DV = Daily Value. DVs were developed by the U.S. Food and Drug Administration to help consumers compare the nutrient contents among products within the context of a total daily diet. The U.S. Department of Agriculture s (USDA s) Nutrient Database Web site lists the nutrient contentof many foods and provides comprehensive list of [...] daily with a meal; Certain patients require 0276-6893 iu daily and in patients deficient in [...] bones. Studies show approximately 50% of [place] men and women are vitamin D deficient [...] available from: www.nof.org (the national osteoporosis foundation) http://www.[facility].org/arthritis/osteo/info.htm http://ods.od.nih.gov/factsheets/vitamind.asp [facility]: 4-448-437-BONE [facility] Calcium Information [place]: At the [facility], we work as a team for your care, along with Nurse Practitioners, PhysicianAssistants, Nurses and Medical Assistants. It is a privilege and honor to serve you. Thank you for choosing [facility] for your healthcare. Sincerely, Nidia Ascencio APRN.CNP documented in this encounterZanesville City Hospital02-13-2023 History of Present illness Narrative* Nidia Ascencio APRN.CNP - 12/29/2022 9:41 AM EST Follow up Telephone visit Jam Toscano is [...] multiple sites with positive rheumatoid factor (HCC) (primaryencounter diagnosis) E55.9 Vitamin D deficiency Z71.2 Encounter [...] in patient's severe chronic Rheumatoid Arthritis. His assurance analyst has switched him to Humira as he [...] IBD and intermittent steroid therapy from his assurance analyst. Pharmacologic therapy is still indicated and recommended, however, are still awaiting completion ofdental work. -I have referred him to Hematology [...] if necessary, CC, NOF and ISCD and [facility]. PLAN: [facility] on 12/29/22 VITAMIN D 25 HYDROXY Please continue on yout Vitamin D 5000 international units once daily with meals and your multivitamin - You are on Humira and sulfasalazine for your Ulcerative Colitis. These are also treating your Rheumatoid Arthritis. During infections you will need to hold the Humira and sulfasalazine, but discuss first with your assurance analyst. Supplements recommended Vitamin B12: 500 to 1000 [...] Boniva, Fosamax/alendronate), these are taken either once aweek or once a month (depending on med [...] in the office. This medication is given fci, indefinitely. Prolia should not be discontinued without proven back up therapy, due to incr risk of vert fractures after withdrawing Prolia. Discussed recent research findings and recommendations that Prolia if started and continued past 1 to 2 yrs, may need to be indefinitely, for now, until new studies show effective transition therapy.Advised that Prolia should not be discontinued due to reported increased risk of bone loss and vertebral fractures after withdrawing Prolia. Multiple studies have looked into transition therapy. Recent study from [facility] Slim et al, 04/11/2020, reported one [...] required another infusion of zoledronic acid after 6months from their first one. In some patients [...] bisphosphonate or Prolia after that, based onguidelines. Medication that both prevents bone loss and builds bone density and prevents Osteoporosis fractures: -Subcutaneous Evenity (romosozumab, an anti-sclerostin monoclonal antibody). This is a monthly subcutaneous injection (2 injections every visit, by the nurse). This is given for 1 year and if furthertreatment is required after that, we would transition to Prolia or a bisphosphonate. It has listed CV risk and warning that it should not be initiated in patients who have had an IN orstroke in the preceding year. This is only [...] disease, it is asymptomatic and does not leadto pains. Patients with new bone pains require [...] atypical and subtroch. fracture of femur with fci use of bisphosphonates/alendronate and anti-resorptive agents, there [...] which included preparing to see the patient, jbvd-jy-wsuk patient care, completing clinical documentation, obtaining and/or reviewing separately obtained history, performing a medically appropriate examination, counseling and educating the pat ient/family/caregiver, and ordering medications, tests, or procedures. Portions [...] the care of your patient. Nidia Ascencio APRN.[facility] cc Jose L Lackey MD, MD Patient Instructions -PLEASE NOTE THAT WE REVIEW ALL YOUR TEST RESULTS AT YOUR NEXT FOLLOW UP VISIT WITH YOU. IF ANY ABNORMAL LAB REQUIRES SOONER ATTENTION, WE WILL CONTACT YOU. -If you have signed up on [employer], we will release your test results through [employer]. I wish you the best of health [...] and sulfasalazine, but discuss first with your assurance analyst. Supplements recommended Vitamin B12: 500 to 1000 [...] taken with good fat to be absorbed. Examplesof healthy fat include nuts, seeds, avocados, olives [...] track your nutrition and calcium intake on www.[employer]Semi [employer].GameGenetics This provides macro and micronutrient intake and requirements. - You can track your calcium intake on MyClean or any other calcium tracker of your [...] consume. For your Ulcerative Colitis it is bestto avoid all animal protein. If you need [...] now for a cost, such as at www.Liberata. -When eating a whole food plant based [...] weight management, memoryand brain healthy, bone health. - You can track your nutrition and calcium intake on www.[employer]Sem[employer].GameGenetics This provides macro and micronutrient intake and [...] that features the Whole Plant Based diet, [place] over knives (see video online and visit website). Another movie that was recently released is: Eating You Alive (you can find it at [employer]) and The [employer] ChangeJin-Magic movie Dr. Fauzia Ansari is a [facility] physician who is an expert in Whole Plant based diet. His website is [employer]. His research highlights the benefits of the Whole food plant based diet in reversing and preventing heart disease. Mrs. Ansari (his ) has a cookbook with many recipes on whole plant based food: The Prevent and Reverse Heart Disease cookbook. 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 Dr. Rock Velazco, has a website and free angélica to help get started on a whole plant based diet, at www.pcr.org and you can log on for free for his 21-Day Kickstart with meals and recipes to follow for21 days. There is also a free angélica for that. He has multiple free videos and YouTube, for example: ht tps://youSunlight Foundationu.be/trzOqmhN2k3 , https://youSunlight Foundationu.be/HiSOPuybh5e He has written multiple books, including Power Quellan for the Brain, The Cheese Trap, Dr. Rock Velazco's Program for Reversing Diabetes, Your Body in Balance Dr. Anthony Carlson has shown the benefit of a starch based whole food plant based diet to his Rheumatoid Arthritis patients, as well as patient with diabetes II, hypertension, obesity, multiple sclerosis, heart disease, acne, and other, his website: www.Opiatalk.GameGenetics Dr. Yayo Allred is a renowned formulation scientist, who has studied and researched the benefits of the Whole plant based diet. He has also researched the adverse effects of animal proteins on health. He presents many of his research findings in his book The [place] study. Dr. Gerber Becker has completed many research trials proving the reversal of diseases, such as heart disease and early prostate cancer, with healthy lifestyle and the Whole Plant based diet. Dr. Gerber Becker website is: www.c[employer].GameGenetics His new book: Undo It, has evidence based information and guide to following this healthy lifestyle. Dr. Cody Dillon has dedicated a website and additional time to reviewing all food related articles and research and presents them in his power point presentation and on his website at: nutritionfacts.org which is all free. Dr. Dillon has multiple free videos and YouTube, for example https://youSunlight Foundationu.be/aSgNkhgVtks and https://youSunlight Foundationu.be/lXXXygDRyBU. He has written multiple books including: How Not To and How Not To Diet He is now working on his next book: How Not To Age Dr. Danitza Dash (from the [facility]), has articles on the following website: [employer]Genetics Also, you could find additional information on practical to follow recipes by reading or watching online and YouTube such as: Chef BELLE, Cooking With Plants, The Vegan Corner (recipes from an [place] Doll Wig Hackler), The Whole Foods Plant Based Cooking Show and visiting the provided websites for additional information on the whole plant based benefit and cooking recipes. You can also consider watching the vlogs of some of the plant based Athletes such as Graeme Kamara, Agustin Lundy on Audience. Dr. Maryan Holguin (a psychiatrist who suffered with lupus) has helped reverse her Systemic Lupus Erythematosus and helps many patients with their auto-immune diseases, based on her recommendations of the whole food plant based diet and the green smoothies. She has a facebook and website, and on youtube her channel is: Nicholasbyjose Lupus Some people have adverse effect or intolerance to gluten. Certain patients with auto-immune disease, including auto-immune thyroid disease, need to avoid gluten. If you suspect you are gluten sensitive or intolerant, consider gluten free diet. Gluten could leadto increased inflammation in the bowels and body [...] - Gentle Yoga Anyone Can Do Anywhere www.LiquidSpace.GameGenetics/yoga Also on youtube: yoga with Karlie 3- [...] based diet, it is recommended to take [id number], sublingual, dissolve under the tongue, take once daily. Vitamin B12 is available over the counter, dose could be 2500 mcg, and can be taken once a week, and if your blood levels are low, you mayneed to take it once daily or a higher dose. Raw: Garlic, Cilantro, [place] nuts, Pumpkin seeds, [place] seeds and Flax seed powder have been reported to help with certain metal detoxification such as mercury. [place]-3 plant based rich foods are good anti-inflammatory [...] the Whole Plant Based Diet, by watching [place] over [employer] movie and then review website. There are many other resources and educational information on the Whole plant based diet on the Internet and documentaries. There are other resources for wellness that you can also benefit from, such as the [facility] website, [facility]org and includes Plant based and Mediterranean diet, yoga and meditation. Please avoid all dairy products. You could use non-dairy milk such as Flax milk, Cashew milk, [place] milk, Rice milk, Oat milk or Hemp [...] milk, you can use coconut water or plainwater instead. Other smoothies, including green smoothies, are also very healthy and highly anti-inflammatory. Forexample fruits (such as banana or frozen raul [...] the dose necessary to achieve a Vitamin D25-OH blood level of >31 and preferably closer [...] Osteoporosis Foundation) http://www.osteo.org/osteolinks.asp National Institutes of Health: 3-339-229-BONE The Calcium Information [place]: -Non-Dairy, Plant based Milk, can contain in1 glass up to 450 mg of calcium (300 to 450 mg) Exampled include Oat Milk, Flax Milk, [place] Milk, Cashew Milk, Soy Milk, Peas Milk general health and well being Examples of Food Sources of Calcium from [facility] Food Milligrams (mg) per serving Percent DV* Soymilk, calcium-fortified, 8 ounces 299 30 [place] juice, calcium-fortified, 6 ounces 261 26 Tofu, firm, made with calcium sulfate, cup* 253 25 Tofu, soft, made with calcium sulfate, cup* 138 14 Ivhrh-ym-prt cereal, calcium-fortified, 1 cup 100-1,000 10-100 Turnip greens, fresh, boiled, cup 99 10 Kale, raw, chopped, 1 cup 100 10 Kale, fresh, cooked, 1 cup 94 9 Israeli cabbage, bok marin, raw, shredded, 1 cup 74 7 Bread, white, 1 slice 73 7 Tortilla, corn, prbll-bl-sqwu/marshall, one 6 diameter 46 5 Tortilla, flour, usifw-fb-byls/marshall, one 6 diameter 32 3 Bread, whole-wheat, 1 slice 30 3 Broccoli, raw, cup 21 2 * DV = Daily Value. DVs were developed by the U.S. Food and Drug Administration to help consumers compare the nutrient contents among products within the context of a total daily diet. The U.S. Department of Agriculture s (USDA s) Nutrient Database Web site lists the nutrient contentof many foods and provides comprehensive list of [...] daily with a meal; Certain patients require 4722-5607 iu daily and in patients deficient in [...] bones. Studies show approximately 50% of [place] men and women are vitamin D deficient [...] available from: www.nof.org (the national osteoporosis foundation) http://www.[facility].org/arthritis/osteo/info.htm http://ods.od.nih.gov/factsheets/vitamind.asp National Institutes of Health: 5-297-401-BONE The Calcium Information Center: At the [facility], we work as a team for your care, along with Nurse Practitioners, PhysicianAssistants, Nurses and Medical Assistants. It is a privilege and honor to serve you. Thank you for choosing The [facility] for your healthcare. Sincerely, Nidia Ascencio APRN.PIANO MOVER PAST MEDICAL HISTORY Diagnosis Date Monoclonal gammopathy [...] mg subcutaneously every 2 weeks. Prescribed by Online Marketing Coordinator : Nel Lebron MD Previously prescr. by [...] three times daily (3 in am, 3 noon,2 pm), per assurance analyst No current facility-administered medications for this visit. [...] developed and its performance characteristics determined by [facility] [place] ([facility]). It has not been cleared or approved by the FDA. -[facility] is regulated under CLIA as qualified to [...] 147 53 - 334 mg/dL Final MPA Chinle, Serum Date Value Ref Range Status 08/19/2018 1,020 534 - 1,267 mg/dL Final MPA Lambda, Serum Date Value Ref Range Status 08/19/2018 551 253 - 653 mg/dL Final MPA Chinle/Lambda Ratio Date Value Ref Range Status 08/19/2018 [...] EXAM: Sep 23 2022 10:03AM [facility] 0804 - BD DXA - AXIAL SKELETON / PROCEDURE REASON: multiple diagnoses * * * * Physician Interpretation * * * * EXAMINATION: DXA BONE DENSITOMETRY BD DXA - AXIAL SKELETON PATIENT DEMOGRAPHICS: Age: 57 years, Race: , Gender: Male SCANNER INFORMATION: DXA Model: AllPeers W [id number] SITE SCANNED: Lumbar spine and left hip [...] for accurate comparison. FOR MORE INFORMATION: [facility] Center for Osteoporosis and Metabolic Bone Disease: www.ccf.org/arthritis/osteo National Osteoporosis Foundation: www.nof.org International Society of Clinical Densitometry www.iscd.org Fur Stretcher: [id number] Transcribe Date/Time: Sep 23 2022 10:28A Dictated by : DARRIAN DUBON MD This examination was interpreted and the report reviewed and electronically signed by: DARRIAN DUBON MD on Sep 28 2022 6:46PM EST [facility] History of Present illness Narrative* Blayne Denis RT(R) - 09/23/2022 9:30 AM EST Radiology Service Progress Note PATIENT NAME: Jam [...] 23, 2022 9:54 AM documented in [facility]03-28-2022 Miscellaneous Notes* Telephone Encounter - Estefanía Ferraro MA - 02/10/2022 10:24 AM EDT Pt aware. Estefanía Ferraro MA * Telephone Encounter - Estefanía Ferraro MA - 02/10/2022 10:24 AM EDT ----- Message from Darrian Dubon MD sent at 02/06/2022 7:56 PM EDT ----- Please advise patient that his labs have much improved and he no longer has an M protein in the urine. The vitamin D is very good. We will continue to follow the kappa and lambda light chain levels overtime. thank you kindly, fa documented in [facility]10[facility] History of Present illness Narrative* Carolina FernándezAppatureBriana Reyes - 08/22/2020 10:05 AM EDT Radiology Service Progress Note PATIENT NAME: Jma Toscano DATE OF SERVICE: August 22, 2020 [...] 22, 2020 10:20 AM documented in [facility]* Diagnosis Rheumatoid arthritis involving multiple sites with positive rheumatoid factor (HCC)- Primary Vitamin D deficiency Unspecified vitamin D deficiency Encounter to discuss test results Other specified counseling Encounter for medication review and counseling Other specified counseling Counseling on health promotion and disease prevention Other specified counseling Other osteoporosis without current pathological fracture [facility] Diagnosis Rheumatoid arthritis involving multiple sites with positive rheumatoid factor (HCC)- Primary Encounter to discuss test results Other specified counseling Counseling on health promotion and disease prevention Other specified counseling Ulcerative pancolitis (HCC) [place] ulcerative (chronic) colitis Other osteoporosis without current pathological fracture [facility] Diagnosis Rheumatoid arthritis involving multiple sites with positive rheumatoid factor (HCC)- Primary Encounter to discuss test results Other specified counseling Counseling on health promotion and disease prevention Other specified counseling Ulcerative pancolitis (HCC) [place] ulcerative (chronic) colitis Vitamin D deficiency Unspecified vitamin D deficiency On sulfasalazine therapy Encounter for medication review and counseling Other specified counseling Other osteoporosis without current pathological fracture Elevated serum immunoglobulin free light chain level Other nonspecific findings on examination of blood [facility]* Diagnosis Seropositive rheumatoid arthritis (HCC) Rheumatoid arthritis Other osteoporosis without current pathological fracture Chronic pain of left ankle Ankle deformity, left Pes planus, unspecified laterality Other secondary osteoarthritis of multiple sites [facility] Diagnosis Rheumatoid arthritis involving multiple sites with positive rheumatoid factor (HCC) Other osteoporosis without current pathological fracture High risk for hip fracture Other specified conditions influencing health status Vitamin D deficiency, hx Unspecified vitamin D deficiency [facility] Diagnosis Other osteoporosis without current pathological fracture High risk for hip fracture Other specified conditions influencing health status Bone loss Other disorders of bone and cartilage Vitamin D deficiency, hx Unspecified vitamin D deficiency [facility] Diagnosis Elevated alkaline phosphatase level- Primary Other nonspecific abnormal serum enzyme levels [facility] Diagnosis Rheumatoid arthritis involving multiple sites with positive rheumatoid factor (HCC) [facility] Diagnosis Rheumatoid arthritis involving multiple sites with positive rheumatoid factor (HCC)- Primary Vitamin D deficiency Unspecified vitamin D deficiency Other osteoporosis without current pathological fracture Encounter for medication review and counseling Other specified counseling Rheumatoid arthritis involving multiple sites with positive rheumatoid factor (HCC) [facility] Diagnosis Foreign body of left hand, sequela- Primary [facility] Diagnosis Rheumatoid arthritis involving multiple sites with positive rheumatoid factor (HCC)- Primary Vitamin D deficiency Unspecified vitamin D deficiency Other osteoporosis without current pathological fracture [facility] Diagnosis Seropositive rheumatoid arthritis (HCC)- Primary Rheumatoid arthritis Rheumatoid arthritis involving multiple sites with positive rheumatoid factor (HCC) On sulfasalazine therapy Ulcerative pancolitis (HCC) [place] ulcerative (chronic) colitis Other osteoporosis without current pathological fracture History of bisphosphonate therapy Personal history of other drug therapy Counseling on health promotion and disease prevention Other specified counseling [facility] Diagnosis Other osteoporosis without current pathological fracture- Primary [facility] Diagnosis Seropositive rheumatoid arthritis (HCC)- Primary Rheumatoid arthritis Rheumatoid arthritis involving multiple sites with positive rheumatoid factor (HCC) On sulfasalazine therapy Ulcerative pancolitis (HCC) [place] ulcerative (chronic) colitis Other osteoporosis without current pathological fracture History of bisphosphonate therapy Personal history of other drug therapy Encounter to discuss test results Other specified counseling Encounter for medication review and counseling Other specified counseling Counseling on health promotion and disease prevention Other specified counseling documented in this encounter [facility] note* Diagnosis Pain of right hip- Primary Primary osteoarthritis of right hip Arthritis of knee, left History of total hip replacement, right [facility] Pain and swelling of right knee- Primary History of total left knee replacement History of total right knee replacement Pain and swelling of left knee [facility]* Diagnosis Seropositive rheumatoid arthritis (HCC) Rheumatoid arthritis Ulcerative pancolitis (HCC) [place] ulcerative (chronic) colitis Other osteoporosis without current pathological fracture History of bisphosphonate therapy Personal history of other drug therapy [facility] Diagnosis Seropositive rheumatoid arthritis (HCC)- Primary Rheumatoid arthritis Rheumatoid arthritis involving multiple sites with positive rheumatoid factor (HCC) On methotrexate therapy On sulfasalazine therapy Ulcerative pancolitis (HCC) [place] ulcerative (chronic) colitis Osteopenia of multiple sites History of osteoporosis Personal history of other musculoskeletal disorders History of bisphosphonate therapy Personal history of other drug therapy Encounter to discuss test results Other specified counseling Encounter for medication review and counseling Other specified counseling Counseling on health promotion and disease prevention Other specified counseling documented in this encounter [facility] for referral (narrative)* Diagnostic Procedure Only (Routine) - ClosedSpecialtyDiagnoses / ProceduresReferred By ContactReferred To ContactXR IMAGING Diagnoses Rheumatoid arthritis involving multiple sites with positive rheumatoid factor (HCC) Procedures XR HAND GENERAL 3V PA/LAT/OBL BILATERAL RADEX HAND MINIMUM 3 VIEWS Silva, Nidia M, ELEVATOR CONSTRUCTOR.PIANO MOVER [address] [facility] [place] [address] [place] [address] Referral IDStatusReasonStart DateExpiration DateVisits RequestedVisits [id number] Auto-Generated Referral [facility] for referral (narrative)* Diagnostic Procedure Only (Routine) - ClosedSpecialtyDiagnoses / ProceduresReferred By ContactReferred To ContactXR IMAGING Diagnoses Rheumatoid arthritis involving multiple sites with positive rheumatoid factor (HCC) Procedures XR HAND GENERAL 3V PA/LAT/OBL BILATERAL RADEX HAND MINIMUM 3 VIEWS Nidia Ascencio APRN.PIANO MOVER [address] [facility] [place] [address] [place] [address] Referral IDStatusReasonStart DateExpiration DateVisits RequestedVisits [id number] Auto-Generated Referral * Diagnostic Procedure Only (Routine) - Pending ReviewSpecialtyDiagnoses / ProceduresReferred By ContactReferred To ContactXR IMAGING Diagnoses Rheumatoid arthritis involving multiple sites with positive rheumatoid factor (HCC) Procedures XR HAND GENERAL 3V PA/LAT/OBL BILATERAL RADEX HAND MINIMUM 3 VIEWS Nidia Ascencio, ELEVATOR CONSTRUCTOR.PIANO MOVER [address] [facility] [place] [address] [place] [address] Referral IDStatusReasonStart DateExpiration DateVisits RequestedVisits [id number] Review Auto-Generated Referral [facility] for referral (narrative)* Diagnostic Procedure Only (Routine) - Pending ReviewSpecialtyDiagnoses / ProceduresReferred By Contact Referred To ContactXR IMAGING Diagnoses Seropositive rheumatoid arthritis (HCC) Ulcerative pancolitis (HCC) Other osteoporosis without current pathological fracture History of bisphosphonate therapy Procedures DXA-AXIAL SKELETON DXA BONE DENSITY STUDY 1/> SITES AXIAL Darrian Tran MD [address] [place] [address] [place] [address] Referral IDStatusReasonStart DateExpiration DateVisits RequestedVisits [id number] Review Auto-Generated Referral [facility] for visit Narrative* Diagnostic Procedure Only (Routine) - ClosedSpecialtyDiagnoses / ProceduresReferred By ContactReferred To Contact XR IMAGING Diagnoses Rheumatoid arthritis involving multiple sites with positive rheumatoid factor (HCC) Procedures XR HAND GENERAL 3V PA/LAT/OBL BILATERAL RADEX HAND MINIMUM 3 VIEWS Nidia Ascencio, ELEVATOR CONSTRUCTOR.PIANO MOVER [address] [place] [address] [place] [address] Referral IDStatusReasonStsacramento DateExpiration DateVisits RequestedVisits [id number] Auto-Generated Referral [facility] for visit Narrative* Diagnostic Procedure Only (Routine) - ClosedSpecialtyDiagnoses / ProceduresReferred By ContactReferred To Contact XR IMAGING Diagnoses Seropositive rheumatoid arthritis (HCC) Ulcerative pancolitis (HCC) Other osteoporosis without current pathological fracture History of bisphosphonate therapy Procedures DXA-AXIAL SKELETON DXA BONE DENSITY STUDY 1/> SITES AXIAL Darrian Tran MD [address] [facility] [place] [address] Phone: tel: fax: [place] [id number] Referral IDStatusReasonStart DateExpiration DateVisits RequestedVisits [id number] Auto-Generated Referral [facility] Advance Directives No Advanced Directives Records [...] Family History Records Found Reason for Referral SpecialtyDiagnoses / ProceduresReferred By ContactReferred To Contact Diagnoses Elevated alkaline phosphatase level Procedures CONSULT TO [facility]PATOLOGY OFFICE/[facility] 60 MINUTES Nidia Ascencio, ELEVATOR CONSTRUCTOR.PIANO MOVER [address] [place] [address] Referral IDStatusReasonStart DateExpiration DateVisits RequestedVisits [id number] PCP Requested Referral /[id number] / ProceduresReferred By ContactReferred To ContactOrthopedics Diagnoses Foreign body of left hand, sequela Procedures CONSULT TO ORTHOPAEDICS OFFICE/[facility] 60 MINUTES Nidia Ascencio, ELEVATOR CONSTRUCTOR.PIANO MOVER [address] [place] [address] Referral IDStatusReasonStart DateExpiration DateVisits RequestedVisits [id number] PCP Requested Referral / Additional Source Comments (unrecognized sect ion and [...] content) DATE CREATED AUTHOR 11/30/2021 [facility] DATE CREATED AUTHOR AUTHOR'S ORGANIZ ATION 02/20/2023 [facility] DATE CREATED AUTHOR AUTHOR'S ORGANIZ ATION 06/09/2024 [facility] DATE CREATED AUTHOR AUTHOR'S ORGANIZ ATION 12/16/2024 [facility] DATE CREATED AUTHOR AUTHOR'S ORGANIZ ATION 12/17/2024 [facility] DATE CREATED AUTHOR AUTHOR'S ORGANIZ ATION 05/08/2025 [facility] DATE CREATED AUTHOR AUTHOR'S ORGANIZ ATION 05/18/2025 [facility] DATE CREATED AUTHOR AUTHOR'S ORGANIZ ATION 06/13/2025 [facility] DATE CREATED AUTHOR AUTHOR'S ORGANIZ ATION 06/16/2025 [facility] DATE CREATED AUTHOR AUTHOR'S ORGANIZ ATION 08/01/2025 [facility] DATE CREATED AUTHOR AUTHOR'S ORGANIZ ATION 09/02/2025 [facility] DATE CREATED AUTHOR AUTHOR'S ORGANIZ ATION 09/16/2025 [facility] Source Comments (unrecognize d section and content) In the event this informatio n is protected by the Federal Confidentiality of Alcohol and Drug Abuse Patient Records regulations: The Federal rules restrict any use of the information to criminally investigate or prosecute any alcohol or drug abuse patient.[facility] the event this information is protected by the Federal Confidentiality of Alcohol and Drug Abuse Patient Records regulations: The Federal rules restrict any use of the information to criminally investigate or prosecute any alcohol or drug abuse patient.[facility] HospitalIn the event this information is protected by the Federal Confidentiality of Alcohol and Drug Abuse Patient Records regulations: The Federal rules restrict any use of the information to criminally investigate or prosecute any alcohol or drug abuse patient.[facility] HospitalIn the event this information is protected by the Federal Confidentiality of Alcohol and Drug Abuse Patient Records regulations: The Federal rules restrict any use of the information to criminally investigate or prosecute any alcohol or drug abuse patient.[facility] HospitalIn the event this information is protected by the Federal Confidentiality of Alcohol and Drug Abuse Patient Records regulations: The Federal rules restrict any use of the information to criminally investigate or prosecute any alcohol or drug abuse patient.[facility] HospitalIn the event this information is protected by the Federal Confidentiality of Alcohol and Drug Abuse Patient Records regulations: The Federal rules restrict any use of the information to criminally investigate or prosecute any alcohol or drug abuse patient.[facility] HospitalIn the event this information is protected by the Federal Confidentiality of Alcohol and Drug Abuse Patient Records regulations: The Federal rules restrict any use of the information to criminally investigate or prosecute any alcohol or drug abuse patient.[facility] HospitalIn the event this information is protected by the Federal Confidentiality of Alcohol and Drug Abuse Patient Records regulations: The Federal rules restrict any use of the information to criminally investigate or prosecute any alcohol or drug abuse patient.[facility] HospitalIn the event this information is protected by the Federal Confidentiality of Alcohol and Drug Abuse Patient Records regulations: The Federal rules restrict any use of the information to criminally investigate or prosecute any alcohol or drug abuse patient.[facility] HospitalIn the event this information is protected by the Federal Confidentiality of Alcohol and Drug Abuse Patient Records regulations: The Federal rules restrict any use of the information to criminally investigate or prosecute any alcohol or drug abuse patient.[facility] HospitalIn the event this information is protected by the Federal Confidentiality of Alcohol and Drug Abuse Patient Records regulations: The Federal rules restrict any use of the information to criminally investigate or prosecute any alcohol or drug abuse patient.[facility] HospitalIn the event this information is protected by the Federal Confidentiality of Alcohol and Drug Abuse Patient Records regulations: The Federal rules restrict any use of the information to criminally investigate or prosecute any alcohol or drug abuse patient.[facility] HospitalIn the event this information is protected by the Federal Confidentiality of Alcohol and Drug Abuse Patient Records regulations: The Federal rules restrict any use of the information to criminally investigate or prosecute any alcohol or drug abuse patient.[facility] HospitalIn the event this information is protected by the Federal Confidentiality of Alcohol and Drug Abuse Patient Records regulations: The Federal rules restrict any use of the information to criminally investigate or prosecute any alcohol or drug abuse patient.[facility] HospitalIn the event this information is protected by the Federal Confidentiality of Alcohol and Drug Abuse Patient Records regulations: The Federal rules restrict any use of the information to criminally investigate or prosecute any alcohol or drug abuse patient.[facility] HospitalIn the event this information is protected by the Federal Confidentiality of Alcohol and Drug Abuse Patient Records regulations: The Federal rules restrict any use of the information to criminally investigate or prosecute any alcohol or drug abuse patient.[facility] HospitalIn the event this information is protected by the Federal Confidentiality of Alcohol and Drug Abuse Patient Records regulations: The Federal rules restrict any use of the information to criminally investigate or prosecute any alcohol or drug abuse patient.[facility] HospitalIn the event this information is protected by the Federal Confidentiality of Alcohol and Drug Abuse Patient Records regulations: The Federal rules restrict any use of the information to criminally investigate or prosecute any alcohol or drug abuse patient.[facility] HospitalIn the event this information is protected by the Federal Confidentiality of Alcohol and Drug Abuse Patient Records regulations: The Federal rules restrict any use of the information to criminally investigate or prosecute any alcohol or drug abuse patient.[facility] HospitalIn the event this information is protected by the Federal Confidentiality of Alcohol and Drug Abuse Patient Records regulations: The Federal rules restrict any use of the information to criminally investigate or prosecute any alcohol or drug abuse patient.[facility] HospitalIn the event this information is protected by the Federal Confidentiality of Alcohol and Drug Abuse Patient Records regulations: The Federal rules restrict any use of the information to criminally investigate or prosecute any alcohol or drug abuse patient.[facility] Reason for Visit (unrecogniz ed section and content) ReasonCommentsResultsReasonCommentsFollow UpReasonCommentsOutside Lab ResultsVit DReasonCommentsPatient UpdateReasonCommentsRadiology XRReasonCommentsRadiology BMDReasonCommentsFollow UpRheumatoid Arthritis and OsteoporosisReasonComments Patient UpdateReasonCommentsResultsLabsReasonCommentsF/U 1 monthRA -Reason CommentsFollow UpReasonCommentsInfusionSpecialtyDiagnoses / ProceduresReferred By ContactReferred To Contact Diagnoses Other osteoporosis without current pathological fracture Procedures INJECTION, ZOLEDRONIC ACID, 1 MG Nidia Ascencio, ELEVATOR CONSTRUCTOR.PIANO MOVER [address] [place] [address] Rheu Infusion [facility] Maria De Jesus [address] [place] [address] Referral IDStatusReasonStart DateExpiration DateVisits RequestedVisits [id number]/[id number]/[id number] Follow-up Care Teams (unrecognized sec tion and content) Team MemberRelationshipSpecialtyStart DateEnd Date Jose L Lackey MD PCP - GeneralFamily Practice01/18/14Team MemberRelationshipSpecialtyStart DateEnd Date Jose L Lackey MD PCP - GeneralFamily Medicine01/18/14Team MemberRelationshipSpecialtyStart DateEnd Date Jose L Lackey MD PCP - GeneralFamily Medicine01/18/14Team MemberRelationshipSpecialtyStart DateEnd Date Jose L Lackey MD PCP - Generalmily Medicine01/18/14Team MemberRelationshipSpecialtyStart DateEnd Date Jose L Lackey MD PCP - Generalmily Medicine01/18/14Team MemberRelationshipSpecialtyStart DateEnd Date Jose L Lackey MD PCP - Generalmily Medicine01/18/14Team MemberRelationshipSpecialtyStart DateEnd Date Jose L Lackey MD PCP - Generalmily Medicine01/18/14Team MemberRelationshipSpecialtyStart DateEnd Date Jose L Lackey MD PCP - Generalmily Medicine01/18/14Team MemberRelationshipSpecialtyStart DateEnd Date Jose L Lackey MD PCP - Generalmi Medicine01/18/14Team MemberRelationshipSpecialtyStart DateEnd Date Jose L Lackey MD PCP - Generalmily Medicine01/18/14Team MemberRelationshipSpecialtyStart DateEnd Date Jose L Lackey MD PCP - Generalmily Medicine01/18/14Team MemberRelationshipSpecialtyStart DateEnd Date Jose L Lackey MD PCP - Generalmily Medicine01/18/14Team MemberRelationshipSpecialtyStart DateEnd Date Jose L Lackey MD PCP - Generalmily Medicine01/18/14Team MemberRelationshipSpecialtyStart DateEnd Date Jose L Lackey MD [facility]01/18/14Te MemberRelationshipSpecialtyStart DateEnd Date Jose L Lackey MD [facility]01/18/14Te MemberRelationshipSpecialtyStart DateEnd Date Jose L Lackey MD [facility]04/21/23 MemberRelationshipSpecialtyStart DateEnd Date Jose L Lackey MD [facility]04/21/23Te MemberRelationshipSpecialtyStart DateEnd Date Jose L Lackey MD [facility]04/21/23 MemberRelationshipSpecialtyStart DateEnd Date Jose L Lackey MD [facility]04/21/23Te MemberRelationshipSpecialtyStart DateEnd Date Jose L Lackey MD [facility]01/18/14Te MemberRelationshipSpecialtyStart DateEnd Date Jose L Lackey MD [facility]01/18/14 FOR RECORDS PERTAINING TO PATIENTS WHO ARE [...] BE BASED ON THE PRIMARY CLINICAL RECORDS. [facility] [employer] [facility]. provides no warranty or guarantee of the accuracy or completeness of information in this document.
[2025-09-18 09:10] LABS: Hematocrit 36.6 % (42.0-54.0); Hemoglobin 12.3 g/dL (14.0-18.0); Immature Granulocytes Abs Auto 0.01 10^3/uL (0.00-0.03); Immature Granulocytes Pct Auto 0.1 % (0.0-0.5); Lymphocytes Absolute Auto 2.5 10^3/uL (1.2-3.8); Mean Corpuscular HGB Conc 33.6 g/dL (29.9-35.2); Mean Corpuscular Hemoglobin 33.4 pg (25.9-34.0); Mean Corpuscular Volume 99.5 fL (80.0-94.0); Platelet Count 248 10^3/uL (150-450); Red Blood Count 3.68 10^6/uL (4.70-6.10); White Blood Count 7.2 10^3/uL (4.0-11.0)
[2025-09-18 09:24] LABS: Alanine Aminotransferase 37 U/L (16-63); Albumin Globulin Ratio 1.0; Albumin Level 3.5 g/dL (3.4-5.0); Alkaline Phosphatase 99 U/L (46-116); Anion Gap 12.6; Aspartate Amino Transferase 20 U/L (15-37); Blood Urea Nitrogen 13.0 mg/dL (7.0-18.0); Calcium 8.9 mg/dL (8.5-10.1); Carbon Dioxide 26.1 mmol/L (21.0-32.0); Chloride 107 mmol/L (98-107); Estimated GFR (African America >60 (>=60 mL/min/1.73m^2); Estimated GFR (Non-African Ame >60 (>=60 mL/min/1.73m^2); Globulin 3.4 g/dL; Glucose 114 mg/dL (74-106); Potassium 3.7 mmol/L (3.5-5.1); Sodium 142 mmol/L (136-145); Total Protein 6.9 g/dL (6.4-8.2)
[2025-09-18 09:50] LABS: Iron 117.0 ug/dL (65.0-175.0)
== END 2025-09-18 08:35 | disposition home or self-care (01) ==
LOC: LAB 08:36
PROVIDERS: PCP Family Medicine; Visit Provider Family Medicine
DX: Z79.899 Other long term (current) drug therapy (principal); D50.9 Iron deficiency anemia, unspecified
CPT/HCPCS: 36415; 80053; 83540; 85025

== ENCOUNTER 2025-09-28 10:47 | Outpatient (OUT) | payer OTHER, MEDICAID, SELFPAY ==
--- OUTSIDE RECORDS SUMMARY | 2025-09-28 10:53 | XMS_ITS | Clinical Summary ---
Author Organization [facility] Address [address] [place] [address] Care Team Providers Care Styrene Dehydration Reactor Operator Name Role Phone Nrom Wang MD Primary Care Provider [phone] Allergies Active AllergyReactionsCriticalityNoted SxinBotvmstaQwlzwnvnltiJblmmyx03/04/2023 Medications MedicationSigDispense QuantityRefillsLast FilledStart DateEnd DateStatus Multiple [...] of right ear03/19/2023 History of total knee lccmmujxdlh37/04/2023History of total right hip auosqlxsqmub68/04/2023rimary osteoarthritis of right knee03/19/2023 Sensorineural hearing loss, nfuhbkhgc32/04/6703Gqojowuenxcz99/04/2018Ulcerative ikkvamwjho95/23/2017Encounter for monitoring of etanercept yqaeukq5202/07/2016 Vitamin D xposizkndm64/20/2015Rheumatoid arthritis with positive rheumatoid kvoiwn6809/12/2015 Immunizations ImmunizationAdministration DatesNext DueInfluenza, injectable, quadrivalent, preservative [...] Date RecordedSex Assigned at BirthNot on fileLegal DrbOkwi9401/28/2023 7:07 PM EDT Gender IdentityNot on fileSexual OrientationNot on file Last Filed Vital Signs Vital SignReadingTime TakenCommentsBlood Pressure--Pulse--Temperature-- Respiratory Rate--Oxygen Saturation--Inhaled Oxygen Concentration--Zojasp41.6 kg (180 lb)03/31/2023 12:00 PM FHLQuclac083.6 cm (5' 6 )03/31/2023 12:00 PM EDTBody Mass Index29.05003/31/2023 12:00 PM EDT Plan of Treatment DateTypeDepartmentCare Team (Latest Contact Info)Dbcjniaiapt68/13/2026 10:00 AM EDTOffice Visit [facility] [address] [place] [address] Jr. Elias Veilz, DO [address] [place] [address] 05/02/2026 10:00 AM EDTOffice Visit [facility] [address] [place] [address] Jr. Elias Veliz, DO [address] [place] [address] Insurance Care Teams Team MemberRelationshipSpecialtyStart DateEnd Norm Wang MD [facility]04/21/23
--- OUTSIDE RECORDS SUMMARY | 2025-09-28 10:53 | XMS_ITS | Clinical Summary ---
Author Organization [facility] Address [address] [place] [address] Care Team Providers Care Soaker Hides Name Role Phone Unavailable Primary Care Provider Unavailabl e Social History Tobacco UseTypesPacks/DayYears UsedDateSmoking Tobacco: Never AssessedSex and Gender InformationValueDate RecordedSex Assigned at BirthNot on fileLegal Sex Male05/15/2022 12:27 AM EDTGender IdentityNot on fileSexual OrientationNot on file Plan of Treatment Not on file
--- OUTSIDE RECORDS SUMMARY | 2025-09-28 10:53 | XMS_ITS | Clinical Summary ---
Author Organization [facility] Address [address] [place] [address] Care Team Providers Care Grade School Teacher Name Role Phone Norm Wang MD Primary Care Provider [phone] Luis Antonio García MD Unavailable [phone] Allergies No known active allergies Medications MedicationSigDispense [...] mg Take 1 capsule by mouth every afternoon./3Discontinued(Clothes Designer Duplicate Med) Active Problems ProblemNoted DateDiagnosed VeakGrbqoirawitz08/04/2018Ulcerative pancolitis 02/05/2017Encounter for monitoring of etanercept lbtxtue0202/07/2016Vitamin D syezfbzlip81/20/2015Rheumatoid arthritis with positive rheumatoid factor 09/12/2015 Immunizations ImmunizationAdministration DatesNext Duehepatitis A-hepatitis B (HepA-HepB) [...] RecordedNational Score (1-100), lower number is lower syss972405/04/2023State Score (1-10), lower number is lower risk8 3Data from: https://www.neighborhoodatlas.medicine.[facility]/. Last address used for [address]05/04/2023Sex and Gender Information ValueDate RecordedSex Assigned at BirthNot on fileLegal QvaOlwe6401/18/2014 3:19 PM ESTGender IdentityNot on fileSexual OrientationNot on file Last Filed Vital Signs Vital SignReadingTime TakenCommentsBlood Ldibbfbs509/6207 8:17 AM EDT Sfhss315306/06/2025 8:17 AM MKFJimuqnkdcsj18.9 ??C (98.4 ??F)05/09/2024 9:08 AM EDTRespiratory Tfor662502/02/2020 8:37 AM EDTOxygen Pxmjotrbar77%05/09/2024 9:08 AM EDTInhaled Oxygen Concentration--Ldenlp78.3 kg (166 lb)06/06/2025 8:17 AM EDT Vrkina379.6 cm (5' 5.98 )02/02/2020 8:37 AM EDTBody Mass Index26.8102/02/2020 8:37 AM EDT Plan of Treatment DateTypeDepartmentCare Team (Latest Contact Info)Oundndhtoac56/16/2025 10:00 AM ESTOffice Visit Rheumatology [address] [place] [address] Darrian Dubon MD [address] [facility] [place] [address] Please also offer another apt later in 2024 or early 2025 (please use 30 min slot) for RA/OPHealth MaintenanceDue DateLast DoneCommentsAnxiety Screening 1982Depression Zxcbfjifn02/16/1982HIV Wttudrluv79/16/1982DTaP,Tdap,Td Vaccine (1 - Tdap)1983Lipid Ptxgvozpf36/16/1999CT Wkjqgtjljhdo56/16/2009 Cologuard (FIT-DNA)05/01/20094717Siypkbyedfc27/16/2009Colorectal Cancer Screening 2009Fecal Occult Blood2009Prostate Cancer Screening Discussion 05/01/20093825Nwgavctebrfdr05/16/2009Pneumococcal Vaccine: 50+ (3 of 3 - PCV20 or PCV21), 05/03/2015Covid-19 Vaccine (2 - Ana Maria risk series) /1RSV Vaccine (1 - Risk 60-74 years 1-dose series)2024 Medicare Advantage Annual Wellness Visit11/16/2024Influenza Vaccine (#1) 511/, 09/27/2020, 10/28/2019, Additional history existsDiabetes Knbgbbrio82/16/60038212/01/2023, 08/22/2020, 02/10/2019, Additional history exists Shingrix QhxpuvlJshjkzuye86/25/2022, 03/17/2022Hepatitis C ScreeningCompleted 12/01/2023, 08/29/2015 Procedures Procedure NamePriorityDate/TimeAssociated DiagnosisCommentsHEPATITIS C ANTIBODY IA WITH ATUBERIRSFCABjqwknb59/16/2024 5:00 PM EST Rheumatoid arthritis involving multiple sites with positive rheumatoid factor (HCC) COMPREHENSIVE METABOLIC SONUUZfkmuiy86/16/2024 5:00 PM EST Rheumatoid arthritis involving multiple sites with positive rheumatoid factor (HCC) from Last 3 Months or Most Recently Relevant to Health Maintenance Results * (ABNORMAL) COMP METABOLIC PANEL (12/01/2023 5:00 PM EST)ComponentValueRef RangeTest MethodAnalysis TimePerformed AtPathologist SignatureProtein, Total 8.06.3 - 8.0 g/dL12/02/2023 6:09 AM [facility] LABAlbumin 3.93.9 - 4.9 g/dL12/02/2023 6:09 AM [facility] Calcium, Total10.28.5 - 10.2 mg/dL12/02/2023 6:09 AM [facility] LABBilirubin, Total0.30.2 - 1.3 mg/dL12/02/2023 6:09 AM [facility] LABAlkaline Xleideiuojt300(H)38 - 113 U/L12/02/2023 6:09 AM [facility] JBIMLG4121 - 40 U/L12/02/2023 6:09 AM [facility] OJFEFS3914 - 54 U/L12/02/2023 6:09 AM [facility] EXSTahqdpr178(H)74 - 99 mg/dL12/02/2023 6:09 AM [facility] LABComment: The [place] Diabetes Association (ADA) provides guidance for cutoff [...] Standards of Medical Care in Diabetes 2016, [place] [employer] Association. Diabetes Care. 2016.39(Suppl 1). ZVV519 - 24 mg/dL12/02/2023 6:09 AM [facility] Creatinine0.920.73 - 1.22 mg/dL12/02/2023 6:09 AM [facility] HLLZwbbsz473198 - 144 mmol/L12/02/2023 6:09 AM [facility] LABPotassium4.13.7 - 5.1 mmol/L12/02/2023 6:09 AM [facility] RCYAckkigmb979(H)97 - 105 mmol/L12/02/2023 6:09 AM [facility] XEIBN07629 - 30 mmol/L12/02/2023 6:09 AM [facility] LABAnion Sas581 - 18 mmol/L12/02/2023 6:09 AM [facility] LABEstimated Glomerular Filtration Rate96>=60 mL/min/1.73m 12/02/2023 6:09 AM [facility] LABComment:Estimated Glomerular Filtration Rate (eGFR) is calculated [...] VolumeCollection TimeReceived TimeBloodBLOOD SPECIMEN / UnknownVenipuncture / Ihszbjj5112/01/2023 5:00 PM EST12/01/2023 5:02 PM EST Narrative Authorizing ProviderResult TypeResult StatusNidia Ascencio APRN.CNPLABORATORY Final ResultPerforming OrganizationAddressCity/State/ZIP CodePhone Number [facility] [address] * HEPATITIS C ANTIBODY IA WITH CONFIRMATION (12/01/2023 5:00 PM EST)Component ValueRef RangeTest MethodAnalysis TimePerformed AtPathologist SignatureHep C Antibody ZKTqdxcakfBafjwnms62/17/2024 9:58 AM [facility] LABComment:The result suggests no evidence of active infection with Hepatitis C virus. Should recent infectionbe suspected, repeat testing may be considered 4-6 weeks after this draw.Specimen (Source)Anatomical Location / Laterality Collection Method / VolumeCollection TimeReceived TimeBloodBLOOD SPECIMEN / UnknownVenipuncture / Moocpwe8312/01/2023 5:00 PM EST12/01/2023 5:02 PM EST Narrative Authorizing ProviderResult TypeResult StatusNidia Ascencio APRN.CNPLABORATORY Final ResultPerforming OrganizationAddressCity/State/ZIP CodePhone Number [facility] [address] from Last 3 Months or Most Recently Relevant to Health Maintenance Insurance * Guarantor: James Toscano TypeRelation to PatientDate of PhoneBilling AddressPersonal/OhcdthFrgg[address] [place] [address] Care Teams Team MemberRelationshipSpecialtyStart Date Norm Wang MD PCP - GeneralFamily Medicine01/18/14 Luis Antonio García MD [address] [id number] ReferringInternal Medicine06/23/25
[2025-09-28 11:35] LABS: Hematocrit 39.5 % (42.0-54.0); Hemoglobin 13.2 g/dL (14.0-18.0); Immature Granulocytes Abs Auto 0.02 10^3/uL (0.00-0.03); Immature Granulocytes Pct Auto 0.2 % (0.0-0.5); Lymphocytes Absolute Auto 2.3 10^3/uL (1.2-3.8); Mean Corpuscular HGB Conc 33.4 g/dL (29.9-35.2); Mean Corpuscular Hemoglobin 33.9 pg (25.9-34.0); Mean Corpuscular Volume 101.5 fL (80.0-94.0); Platelet Count 280 10^3/uL (150-450); Red Blood Count 3.89 10^6/uL (4.70-6.10); White Blood Count 9.2 10^3/uL (4.0-11.0)
[2025-09-28 12:33] LABS: Alanine Aminotransferase 43 U/L (16-63); Albumin Globulin Ratio 1.1; Albumin Level 3.7 g/dL (3.4-5.0); Alkaline Phosphatase 105 U/L (46-116); Anion Gap 10.4; Aspartate Amino Transferase 21 U/L (15-37); Blood Urea Nitrogen 16.0 mg/dL (7.0-18.0); Calcium 9.0 mg/dL (8.5-10.1); Carbon Dioxide 29.7 mmol/L (21.0-32.0); Chloride 106 mmol/L (98-107); Cholesterol 153 mg/dL (<=200); Estimated GFR (African America >60 (>=60 mL/min/1.73m^2); Estimated GFR (Non-African Ame >60 (>=60 mL/min/1.73m^2); Free T3 2.32 pg/mL (2.18-3.98); Globulin 3.3 g/dL; Glucose 102 mg/dL (74-106); HDL Cholesterol 81 mg/dL (40-60); Potassium 4.1 mmol/L (3.5-5.1); Sodium 142 mmol/L (136-145); Thyroid Stimulating Hormone 2.501 uIU/mL (0.358-3.740); Total Protein 7.0 g/dL (6.4-8.2); Triglycerides 46 mg/dL (<=150); Uric Acid 4.9 mg/dL (3.5-7.2); VLDL CHOLESTEROL 9.2 mg/dL
[2025-09-29 08:13] LABS: PSA, Free 1.78 ng/mL
== END 2025-09-28 10:48 | disposition home or self-care (01) ==
PROVIDERS: PCP Family Medicine; Visit Provider Family Medicine
DX: E78.00 Pure hypercholesterolemia, unspecified (principal); I10 Essential (primary) hypertension; Z23 Encounter for immunization; H10.10 Acute atopic conjunctivitis, unspecified eye; R73.09 Other abnormal glucose; M10.9 Gout, unspecified; E03.9 Hypothyroidism, unspecified; Z12.5 Encounter for screening for malignant neoplasm of prostate; D50.9 Iron deficiency anemia, unspecified; R97.20 Elevated prostate specific antigen [PSA]
CPT/HCPCS: 36415; 80053; 80061; 83036; 84153; 84154; 84436; 84443; 84481; 84550; 85025; G0103

== ENCOUNTER 2025-10-17 11:38 | Outpatient (OUT) | payer OTHER, MEDICAID, SELFPAY ==
--- OUTSIDE RECORDS SUMMARY | 2025-10-17 11:44 | XMS_ITS | Clinical Summary ---
Author Organization [facility] Address [address] [place] [address] Care Team Providers Care Economics Faculty Member Name Role Phone Unavailable Primary Care Provider Unavailabl e Social History Tobacco UseTypesPacks/DayYears UsedDateSmoking Tobacco: Never AssessedSex and Gender InformationValueDate RecordedSex Assigned at BirthNot on fileLegal Sex Male05/15/2022 12:27 AM EDTGender IdentityNot on fileSexual OrientationNot on file Plan of Treatment Not on file
--- OUTSIDE RECORDS SUMMARY | 2025-10-17 11:44 | XMS_ITS | Clinical Summary ---
Author Organization [facility] Address [address] [place] [id number] Care Team Providers Care Sql Server Developer Name Role Phone Norm Wang MD Primary Care Provider [phone] Luis Antonio García MD Unavailable [phone] Allergies No known active allergies Medications MedicationSigDispense [...] mg Take 1 capsule by mouth every afternoon./3Discontinued(Vacuum Pan Operator Duplicate Med) Active Problems ProblemNoted DateDiagnosed JktvLehcvvnrmlpq07/04/2018Ulcerative pancolitis 02/05/2017Encounter for monitoring of etanercept qbatlhz2402/07/2016Vitamin D ctakaiszly13/20/2015Rheumatoid arthritis with positive rheumatoid factor 09/12/2015 Immunizations [...] RecordedNational Score (1-100), lower number is lower wibk387505/04/2023State Score (1-10), lower number is lower risk8 3Data from: https://www.neighborhoodatlas.medicine.[facility]/. Last address used for [address]05/04/[birth year]23Sex and Gender Information ValueDate RecordedSex Assigned at BirthNot on fileLegal XpdXezj1701/18/2014 3:19 PM ESTGender IdentityNot on fileSexual OrientationNot on file Last Filed Vital Signs Vital SignReadingTime TakenCommentsBlood Nptditkf161/6207 8:17 AM EDT Sfeiy458706/06/2025 8:17 AM RGISynhplrhcgi09.9 ??C (98.4 ??F)05/09/2024 9:08 AM EDTRespiratory Xkxk139202/02/2020 8:37 AM EDTOxygen Wilkpusinw19%05/09/2024 9:08 AM EDTInhaled Oxygen Concentration--Oftqur94.3 kg (166 lb)06/06/2025 8:17 AM EDT Bxvmqz363.6 cm (5' 5.98 )02/02/2020 8:37 AM EDTBody Mass Index26.8102/02/2020 8:37 AM EDT Plan of Treatment DateTypeDepartmentCare Team (Latest Contact Info)Pxmoahuqcmr39/16/2025 10:00 AM ESTOffice Visit Rheumatology [address] [place] [address] Darrian Dubon MD [address] [facility] [place] [address] Please also offer another apt later in 2024 or early 2025 (please use 30 min slot) for RA/OPHealth MaintenanceDue DateLast DoneCommentsAnxiety Screening 1982Depression Uephdaxkn96/16/1982HIV Aneyzswbl82/16/1982DTaP,Tdap,Td Vaccine (1 - Tdap)1983Lipid Hwtrfqmzg66/16/1999CT Vwmaezgzlwsq72/16/2009 Cologuard (FIT-DNA)05/01/20098047Arcnzmhmeyq13/16/2009Colorectal Cancer Screening 2009Fecal Occult Blood2009Prostate Cancer Screening Discussion 05/01/20097259Ldcbxkpembrpy23/16/2009Pneumococcal Vaccine: 50+ (3 of 3 - PCV20 or PCV21), 05/03/2015Covid-19 Vaccine (2 - Ana Maria risk series) /1RSV Vaccine (1 - Risk 60-74 years 1-dose series)2024 Medicare Advantage Annual Wellness Visit11/16/2024Influenza Vaccine (#1) 511/, 09/27/2020, 10/28/2019, Additional history existsDiabetes Tjyejbqtf93/16/70881712/01/2023, 08/22/2020, 02/10/2019, Additional history exists Shingrix XaftfxoMvyaeplwf92/25/2022, 03/17/2022Hepatitis C ScreeningCompleted 12/01/2023, 08/29/2015 Procedures Procedure NamePriorityDate/TimeAssociated DiagnosisCommentsHEPATITIS C ANTIBODY IA WITH DXAYFITYKIJQGbxerlk52/16/2024 5:00 PM EST Rheumatoid arthritis involving multiple sites with positive rheumatoid factor (HCC) COMPREHENSIVE METABOLIC EFDHSGfxqclm56/16/2024 5:00 PM EST Rheumatoid arthritis involving multiple sites with positive rheumatoid factor (HCC) from Last 3 Months or Most Recently Relevant to Health Maintenance Results * (ABNORMAL) COMP METABOLIC PANEL (12/01/2023 5:00 PM EST)ComponentValueRef RangeTest MethodAnalysis TimePerformed AtPathologist SignatureProtein, Total 8.06.3 - 8.0 g/dL12/02/2023 6:09 [facility] LABAlbumin 3.93.9 - 4.9 g/dL12/02/2023 6:09 [facility] Calcium, Total10.28.5 - 10.2 mg/dL12/02/2023 6:09 [facility] LABBilirubin, Total0.30.2 - 1.3 mg/dL12/02/2023 6:09 [facility] LABAlkaline Iqztggsphqw204(H)38 - 113 U/L12/02/2023 6:09 AM [facility] FUIZGW4348 - 40 U/L12/02/2023 6:09 AM [facility] LYCGCC3245 - 54 U/L12/02/2023 6:09 AM [facility] GXCXcrened464(H)74 - 99 mg/dL12/02/2023 6:09 [facility] LABComment: The [place] Diabetes Association (ADA) provides guidance for cutoff [...] Standards of Medical Care in Diabetes 2016, Indian Diabetes Association. Diabetes Care. 2016.39(Suppl 1). MPY912 - 24 mg/dL12/02/2023 6:09 [facility] Creatinine0.920.73 - 1.22 mg/dL12/02/2023 6:09 [facility] IIKUstkhn454066 - 144 mmol/L12/02/2023 6:09 [facility] LABPotassium4.13.7 - 5.1 mmol/L12/02/2023 6:09 AM [facility] OWNYkqzihen266(H)97 - 105 mmol/L12/02/2023 6:09 [facility] JUPHL89392 - 30 mmol/L12/02/2023 6:09 [facility] LABAnion Lgd661 - 18 mmol/L12/02/2023 6:09 [facility] LABEstimated Glomerular Filtration Rate96>=60 mL/min/1.73m 12/02/2023 6:09 [facility] LABComment:Estimated Glomerular Filtration Rate (eGFR) is calculated [...] VolumeCollection TimeReceived TimeBloodBLOOD SPECIMEN / UnknownVenipuncture / Otqhule3712/01/2023 5:00 PM EST12/01/2023 5:02 PM EST Narrative Authorizing ProviderResult TypeResult StatusNidia Ascencio APRN.CNPLABORATORY Final ResultPerforming OrganizationAddressCity/State/ZIP CodePhone Number [facility] [address] * HEPATITIS C ANTIBODY IA WITH CONFIRMATION (12/01/2023 5:00 PM EST)Component ValueRef RangeTest MethodAnalysis TimePerformed AtPathologist SignatureHep C Antibody TQDmqftkbdQzljfhpc27/17/2024 9:58 [facility] LABComment:The result suggests no evidence of active infection with Hepatitis C virus. Should recent infectionbe suspected, repeat testing may be considered 4-6 weeks after this draw.Specimen (Source)Anatomical Location / Laterality Collection Method / VolumeCollection TimeReceived TimeBloodBLOOD SPECIMEN / UnknownVenipuncture / Wfqduxp3612/01/2023 5:00 PM EST12/01/2023 5:02 PM EST Narrative Authorizing ProviderResult TypeResult StatusNidia Ascencio APRN.CNPLABORATORY Final ResultPerforming OrganizationAddressCity/State/ZIP CodePhone Number [facility] [address] from Last 3 Months or Most Recently Relevant to Health Maintenance Insurance * Guarantor: James Toscano TypeRelation to PatientDate of PhoneBilling AddressPersonal/FlulgvIutb1965 [facility] [place] [address] Care Teams Team MemberRelationshipSpecialtyStart Date Norm Wang MD PCP - GeneralFamily Medicine01/18/14 Luis Antonio García MD [address] [place] [id number] ReferringInternal Medicine06/23/25
--- OUTSIDE RECORDS SUMMARY | 2025-10-17 11:44 | XMS_ITS | Clinical Summary ---
Author Organization [facility] Address [address] [place] [address] Care Team Providers Care Fire Safety Manager Name Role Phone Norm Wang MD Primary Care Provider [phone] Allergies Active AllergyReactionsCriticalityNoted MjzsGcydlufdWuixbdsxvxcVddkaee12/04/2023 Medications MedicationSigDispense QuantityRefillsLast FilledStart DateEnd DateStatus Multiple [...] of right ear03/19/2023 History of total knee /04/2023History of total right hip szlaudixexoq95/04/2023rimary osteoarthritis of right knee03/19/2023 Sensorineural hearing loss, guswyjywb53/04/3101Epktywbkmjgt11/04/2018Ulcerative sytrnpmoim12/23/2017Encounter for monitoring of etanercept vpoijcw5402/07/2016 Vitamin D yxannlnnzn21/20/2015Rheumatoid arthritis with positive rheumatoid pjvxbk7609/12/2015 Immunizations ImmunizationAdministration DatesNext DueInfluenza, injectable, quadrivalent, preservative [...] Date RecordedSex Assigned at BirthNot on fileLegal CbmSced6601/28/2023 7:07 PM EDT Gender IdentityNot on fileSexual OrientationNot on file Last Filed Vital Signs Vital SignReadingTime TakenCommentsBlood Pressure--Pulse--Temperature-- Respiratory Rate--Oxygen Saturation--Inhaled Oxygen Concentration--Niqyso36.6 kg (180 lb)03/31/2023 12:00 PM TWRVacfdg762.6 cm (5' 6 )03/31/2023 12:00 PM EDTBody Mass Index29.05003/31/2023 12:00 PM EDT Plan of Treatment DateTypeDepartmentCare Team (Latest Contact Info)Qmlodvockhv06/13/2026 10:00 AM EDTOffice Visit [facility] [address] [place] [phone] Jr. Elias Veliz, DO [address] [place] [address] 05/02/2026 10:00 AM EDTOffice Visit [facility] [address] [place] [phone] Jr. Elias Veliz, DO [address] [facility] [address] [place] [address] Insurance Care Teams Team MemberRelationshipSpecialtyStart DateEnd Norm Wang MD [address] [facility] [place] [address] PCP - GeneralMercyone [facility] Centerly Medicine04/21/23
--- OUTSIDE RECORDS SUMMARY | 2025-10-17 11:46 | XMS_ITS | CCD ---
Author Organization [facility] Care Team Providers Care Mallet And Die Cutter Name Role Phone Rigo Gonzalez Attending Provider [phone] Jose L Lackey Primary Care Provider [phone] Jose L Lackey MD Primary Care Provider [phone] Jose L Lackey MD Primary Care Provider [phone] ZIYAD ., DR DOMINGO Primary Care Unavailable HOY ., DR DOMINGO Consulting Unavailable HOY ., DR DOMINGO Attending Unavailable HOY ., DR DOMINGO Admitting Unavailable KELFORD, DR KALEIGH Strong Consulting Unavailable HOY ., [...] Jose L Lackey MD Primary Care Provider [phone] Luis Antonio García Attending Unavaila Luis Antonio Bowden Admitting Unavaila Jose L Correa MD Primary Care Provider [phone] JR. KEREN, BRADLY Watters Attending Unavaila [...] Luis Antonio Talal Attending Unavaila ble Sarmini, uLis Antonio Talal Admitting Unavaila ble Sarmini, Luis Antonio Talal Attending Unavaila ble RAMÍREZMarcin Admitting Unavailable RAMÍREZMarcin Attending Unavailable Sarmini, Luis Antonio Talal Attending Unavaila ble Unavailable Unavailable Unavailable Allergies Allergy ClassificationReported Allergen(s)Allergy TypeDate of OnsetReaction(s) Facility (5 sources)No Known Medication Allergies; Translations: [No Known Medication Allergies]Propensity to adverse reactions (disorder)[facility] Repository (6 sources)beta Sitosterol / ZINC CITRATEDrug Htvxppq03-33-7082VwtxdesJZZA Healthcare Medications Current Medications MedicationDrug Class(es)DatesSig (Normalized)Sig [...] mg oral capsule (8 sources)AnticholinergicStart: 12-17-2022 End: 21-23-8520afjn 1 capsule by mouth four times dailydicyclomine [...] sulfate 325 mg oral tablet (9 sources)Start: 67-07-6693jjpu 1 tablet by mouth twice dailyferrous sulfate 325 mg (65 mg iron) tablet 1 tablet Orally bid for 30 days 03/02/2025 Active Start: 01-06-2024 End: 99-66-2462oksk 1 tablet by mouth every twelve hoursferrous sulfate 325 mg (65 mg iron) tablet Take 1 tablet by mouth every 12 hours. 0 01/06/202403/14 Discontinuedferrous sulfate 325 (65 Fe) MG EC tablet Take 325 mg by mouth in the morning and 325 mg at noon poa910 mg in the evening. Take with meals. Do not crush, chew, or split. ActiveComment on above:Take 1 tablet by mouth every 12 hours.folic acid 1 mg oral tablet (20 sources)Start: 78-51-1233qjgv 1 tablet by mouth once dailyfolic acid [...] meq extended release oral capsule (2 sources)Start: 19-25-3030ucnz 1 tablet by mouth twice daily at mealtime potassium chloride SR (MICRO-K) 10 mEq CR capsule 1 tablet with food Orally Twice Daily for 30 days05/17/2025 ActivesulfaSALAzine 500 mg delayed release oral tablet (20 sources)AminosalicylateStart: 86-87-5447ygim 2 tablets by mouth four times dailysulfaSALAzine EC (AZULFIDINE EN) 500 mg EC tablet TAKE 2 TABLETS BY MOUTH 4 TIMES A DAY 11/03/2023 ActiveSULFASALAZINE ORAL Take by mouth. takes 8 pills a days, divided three times daily (3 in am, 3 noon,2 pm), per generator operator 0 ActiveComment on above:Take by mouth. takes 8 pills a days, divided three times daily (3 in am, 3 noon, 2 pm), per generator operator TAKE 2 TABLETS BY MOUTH 4 TIMES A DAYtiZANidine 4 mg oral tablet (7 sources)Central alpha-2 Adrenergic AgonisttiZANidine (ZANAFLEX) 4 mg tablet Take 8 mg by mouth daily at bedtime. Active End: 10-87-7698ptds 1 capsule by mouth in the morning, [...] injection (17 sources)Integrin Receptor AntagonistStart: 11-11-2023 End: 73-11-5690PFMEVWC 300 mg injection as directed every 8 wks 0 11/11/2023 05/09/2024 Discontinued (Discontinuedby Patient)Start: 97-19-2804URQXBPY 300 mg injection 08/11/2024 ActiveComment on above:as directed every 8 wks Completed/Discontinued Medications MedicationDrug Class(es)DatesSig (Normalized)Sig (Original)0.4 ml adalimumab 100 mg/ml auto-injector (6 sources)Tumor Necrosis Factor BlockerStart: 02-18-2021 End: 28-32-8570ILPQNU,CF, PEN 40 mg/0.4 mL pen kit Inject 40 mg subcutaneously every 2 weeks. Prescribed by Store Product Demonstrator : Nel Lebron MD Previously prescr. by Ronald Brown MD 0 02/18/2021 05/04/2023 DiscontinuedComment on above:Inject 40 mg subcutaneously every 2 weeks. Prescribed by Store Product Demonstrator : Nel Lebron MD Previously prescr. by Ronald Brown MD azelastine hydrochloride 0.5 mg/ml ophthalmic solution (12 sources)Histamine-1 Receptor AntagonistStart: 09-18-2022 End: 00-93-0607afld 1 drop(s) into the eye(s) once dailyAzelastine HCl (OPTIVAR) 0.05 % ophthalmic solution INSTILL 1 DROP INTO EYE ONCE DAILY 0 09/18/2022 05/09/2024 DiscontinuedComment on above:INSTILL 1 DROP INTO EYE ONCE DAILY24 hr budesonide 9 mg extended release oral tablet (2 sources)CorticosteroidStart: 01-04-2020 End: 44-66-2881qiae 1 tablet by mouth once dailyUCERIS 9 [...] (1 source)Tumor Necrosis Factor BlockerStart: 12-29-2019 End: 54-40-3822vwricu 0.5 mL by subcutaneous injection two times weekly etanercept (ENBREL) 25 mg/0.5 mL (0.5) syrg Indications: Rheumatoid arthritis involving multiple sites with positive rheumatoid factor (HCC) Inject 0.5 mL subcutaneously two times a week. 8 Syringe 11 12/29/2019 02/20/2021 Discontinued (Changing Therapy/Dosage Form)Comment on above:Inject 0.5 mL subcutaneously two times a week.meloxicam 15 mg oral tablet (2 sources)Nonsteroidal Anti-inflammatory Drug End: 69-85-4241tcog 1 tablet by mouth once dailymeloxicam (MOBIC) 15 mg tablet Take 15 mg by mouth once daily. 06/06/2025 Discontinued (Discontinued by Patient)mesalamine 66.7 mg/ml enema (15 sources)AminosalicylateStart: 01-17-2022 End: 70-55-3884crczqjdsta (ROWASA) 4 gram/60 mL enema USE 1 ENEMA RECTALLY EVERY DAY AT BEDTIME 0 01/17/2022 03/14/2024 Discontinuedmesalamine (Rowasa) 4 g enema as directed Rectal ActiveComment on above:USE 1 ENEMA RECTALLY EVERY DAY AT BEDTIMEpredniSONE 10 mg oral tablet (2 sources)Start: 12-02-2023 End: 25-64-3863mrgdccNOTS (DELTASONE) 10 mg tablet PLEASE SEE ATTACHED FOR DETAILED DIRECTIONS 0 12/02/2023 03/14/2024 DiscontinuedComment on above:PLEASE SEE ATTACHED FOR DETAILED DIRECTIONStraMADol hydrochloride 50 mg oral tablet (2 sources)Opioid Agonist End: 93-88-1490iicw 1 tablet by mouth every six hours as neededtraMADol (ULTRAM) 50 mg tablet Take 50 mg by mouth every 6 hours as needed for pain. 06/06/2025 Discontinued (Discontinued by Patient)turmeric root extract 500 mg cap (11 sources) End: 47-21-5110tshw 1 tablet by mouth three times dailyturmeric [...] 0.05 mg/ml injection (1 source)BisphosphonateStart: 05-09-2024 End: 04-68-0464efcpsbdikj acid 5 mg PREMIX piggyback (RECLAST) Problems Active Problems Problem ClassificationProblemDateDocumented DateEpisodic/ChronicAcquired foot deformities (1 source)Talipes planus; Translations: [Flat foot [pes planus] (acquired), unspecified foot]39-81-3630AumqjvlbLltltwnlizkupg/social admission (8 sources)Follow-up status; Translations: [Person consulting for explanation of examination or test findings]EpisodicImmunizations and screening for infectious disease (1 source)Other specified abnormal immunological findings in serum; Translations: [Other and unspecified nonspecific immunological findings]Episodic Nutritional deficiencies (20 sources)Vitamin D deficiency; Translations: [Vitamin D deficiency, unspecified]Onset: 473323-32-5966DodauhbUmzvovomwtlhwr (20 sources)Degenerative joint disease involving multiple joints; 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]Onset: 538903-86-1068VaxsdbnQdoqrhecfmux (20 sources)Osteoporosis; Translations: [Age-related osteoporosis without current pathological fracture]Onset: 496103-75-5280SwsittwDynln acquired deformities (1 source)Ankle joint deformity; Translations: [Unspecified acquired deformity of left lower leg]87-97-8547NgpewltcYwjac aftercare (20 sources)Patient encounter status; Translations: [Encounter for therapeutic drug level monitoring]Onset: 202986-17-6728DlvtveveMnpzt aftercare (2 sources)Other snf (current) drug therapy; Translations: [OTH CORRECTION CURRENT DRUG THERAPY]Onset: 94-01-7048SqvdumqcPlfof aftercare (5 sources)Drug therapy finding; Translations: [Other computer terminal operator (current) drug therapy]EpisodicOther bone disease and musculoskeletal deformities (1 source)Disorder of bone; Translations: [Other specified disorders of bone density and structure, unspecified site]63-38-2872QqteqwbkKgved bone disease and musculoskeletal deformities (1 source)Osteopenia; Translations: [Other specified disorders of bone density and structure, multiple sites]79-45-1861DdcfjzoiNyoht bone disease and musculoskeletal deformities (1 source)Other specified disorders of bone density and structure, multiple sites; Translations: [Osteopenia of multiple sites]Onset: 02-31-2323Qqervfca Other connective tissue disease (6 sources)History of total knee arthroplasty; Translations: [Presence of unspecified artificial knee joint]Onset: 451752-46-3756TxborhcSlmeo connective tissue disease (8 sources)History of total replacement of right hip joint; Translations: [Presence of right artificial hip joint]Onset: 475411-43-4235NfdoswvFwyqx connective tissue disease (2 sources)History of left total knee replacement; Translations: [Presence of left artificial knee joint]50-84-5848OmtszcdPvbgg connective tissue disease (2 sources)History of right total knee replacement; Translations: [Presence of right artificial knee joint]89-10-7834OmdfnjuBvnre connective tissue disease (1 source)History of osteoporosis; Translations: [Personal history of other diseases of the musculoskeletal system and connective tissue]75-82-7199Isjwpsmv Other connective tissue disease (1 source)Personal history of other diseases of the musculoskeletal system and connective tissue; Translations: [History of osteoporosis]Onset: 06-06-2025 EpisodicOther ear and sense organ disorders (6 sources)Chronic otitis externa; Translations: [Other otitis externa, right ear]Onset: 918773-22-6581UekvkpbRibrk ear and sense organ disorders (6 sources)Sensorineural hearing loss, bilateral; Translations: [Sensorineural hearing loss, bilateral]Onset: 368727-01-1492ExfmaefXmahn liver diseases (1 source)Alkaline phosphatase raised; Translations: [Abnormal levels of other serum enzymes]48-61-1987JabwyxtsGruhi non-traumatic joint disorders (1 source)Chronic ankle pain; Translations: [Pain in left ankle and joints of left foot]94-66-0727GoonvmfsYlrdy non-traumatic joint disorders (2 sources)Hip pain; Translations: [Pain in right hip]15-23-3595MrfjewokDyoiu non-traumatic joint disorders (4 sources)Pain in right knee; Translations: [Pain in joint, lower leg] 86-52-2692DdoxjdzdKvakfawd enteritis and ulcerative colitis (20 sources)Ulcerative pancolitis; Translations: [Ulcerative (chronic) pancolitis without complications]Onset: 009633-46-9783AfkocbdEofyumvb codes; unclassified (2 sources)At risk for injury; Translations: [Other specified personal risk factors, not elsewhere classified]11-51-5099OjsuqehnKdpefmji codes; unclassified (4 sources)History of drug therapy; Translations: [Personal history of other drug therapy]33-29-4729TlsmorbjNqrbgcob codes; unclassified (1 source)Personal history of other drug therapy; Translations: [History of bisphosphonate therapy]Onset: 02-75-8894TdkxdsjoLrvrwxwtfp arthritis and related disease (20 sources)Rheumatoid factor positive rheumatoid arthritis; Translations: [Rheumatoid arthritis with rheumatoid factor, unspecified]Onset: 09-12-2015 42-03-6329KdfsgsjTlkipwzlufj; intervertebral disc disorders; other back problems (2 sources)Other intervertebral disc degeneration, lumbar region; Translations: [Spondylosis without myelopathy or radiculopathy, lumbar region]Onset: 44-95-7042RaybrlcXckhqojfvdn; intervertebral disc disorders; other back problems (2 sources)Spinal stenosis, lumbar region without neurogenic claudication; Translations: [Cervicalgia]Onset: 54-03-8225QctjvvsdFoxlpmzjqrl injury; contusion (1 source)Foreign body in hand; Translations: [Superficial foreign body of left hand, sequela]98-27-4220NzobtsvbFispgxd disorders (4 sources)Hypothyroidism, unspecified; Translations: [HYPOTHYROIDISM UNSPECIFIED]Onset: 35-29-4499AxalfmoRzvsjdehikfq (3 sources)LOW BACK PAIN, UNSPECIFIED; Translations: [LOW BACK PAIN, UNSPECIFIED]Onset: 26-83-1752Okwidydqovdj (1 source)CONTACT W/AND (SUSP) EXPOS COVID-19; Translations: [CONTACT W/AND (SUSP) EXPOS COVID-19]Onset: 16-83-5685Lgzqzlrfnzow (1 source)On methotrexate therapy; Translations: [On methotrexate therapy]Onset: 06-06-2025 Past or Other Problems Problem ClassificationProblemDateDocumented DateEpisodic/ChronicOther aftercare (11 sources)Long-term current use of drug therapy; Translations: [Encounter for therapeutic drug level monitoring]Onset: 041322-55-8483RrnuubrjSxwkm circulatory disease (4 sources)Elevated blood-pressure reading, without diagnosis of hypertension; Translations: [ELEVATED BP READING W/O DX HTN]Onset: 65-82-3498YcedsugcYehcjibvj and history of mental health and substance abuse codes (1 source)Personal history of nicotine dependence; Translations: [PERSONAL HISTORY OF NICOTINE DEPEND]Onset: 04-50-3370QebfjypeRnuyhydnqdye (1 source)LOW BACK PAIN, UNSPECIFIED; Translations: [LOW [...] eb use peds scope (clear cap for both)[facility] 78-31-0168RcqwwlztyErqhwktby From: Evelin Enriquez To: Jossie Roberts; Evelin Enriquez; Sent: 06/27/2025 15:51:50 EDT Show up: 08/21/2025 15:51:00 EDT Subject: EGD & Colon Due Date/Time: 09/18/2025 15:51:00 EST Reminder/Recall Per Dr. Ricky caro call pt in august to schedule push and colonscopy in [facility] use peds scope (clear cap for both) Patient would like to push procedures back to December. Call to schedule in November. Labs are being watched monthly by PCP.[facility] Office/Clinic Noteon 47-59-5528Mznmzyuqanxgbsrf Office/Clinic NoteGastroenterology Office/Clinic Note Chief Complaint follow [...] examine duodenum well including papilla Assessment/Plan 1. [place] ulcerative colitis (K51.00: Ulcerative (chronic) pancolitis without [...] next colonoscopy, he prefers to stay at [facility] Colonoscopy 04/2025 showed full remission. Biopsies did not show active inflammation, did show TA from rectal and rectosigmoid colon biopsy, HP from sigmoid polyp He also has RA, was following with Dr. Valente at [place], prescribed sulfasalazine, methotrexate. Currently his PCP is prescribing his medication. Recommended he continue to see rheumatology. He does not want to go back to Dr Valente, will refer to other campaign developer at [facility]. We discussed lifestyle modifications including Mediterranean diet and exercise Discussed health maintenance as well including vaccinations, getting his DEXA scan with Dr. Tatum and osteoporosis therapy - Schedule Colonoscopy in September to evaluate. Discussed risks such as bleeding, injury and perforation as well as benefits. Patient agreeable. - Referred to rheumatology at [facility] 2. History of colon polyps (Z86.0100: [...] bladder emptying Gross hematuria (more content not included)...[facility]: Result Comment: Electronically Signed By: Jeannine Santizo MA\.br\Date and Time Signed: 06/21/25 10:40 EDT\.br\Electronically Co-Signed By: Luis Antonio García MD\.br\Date and Time Co-Signed: 06/22/25 11:13 EDTAmbulatory Visit Summaryon 69-08-4352Jqktmtrutx Visit SummaryAmbulatory Visit Summary JAM TOSCANO :1965 Visit Date:06/21/2025 Ambulatory Visit Instructions Your Diagnosis [place] ulcerative colitis History of colon polyps Elevated [...] Someone Will Contact You Regarding These Appointments [facility] External Ambulatory Referral, Rheumatology, 06/21/25 10:35:00 EDT, [place] ulcerative colitis History of colon polyps Elevated [...] PSA (prostate specific antigen) Ulcerative colitis, universal [place] ulcerative colitis Ureteral stone with hydronephrosis Urethral [...] results and ot (more content not included)...Normal [facility] - AXIAL SKELETONon 20-88-1560UL DXA - AXIAL SKELETON* * *Final Report* [...] years, Gender: Male SCANNER INFORMATION: DXA Model: Interact.io [id number] Date Scanned: 06/06/2025 8:13 AM CLINICAL HISTORY: [...] FOR MORE INFORMATION ABOUT DIAGNOSIS AND TREATMENT: [facility] Osteoporosis and Metabolic Bone Disease:? www.ccf.org/arthritis/osteo National Osteoporosis Foundation:? www.nof.org International Society of Clinical Densitometry www.iscd.org Facility Manager Histology: [id number] Transcribe Date/Time: Jun 06 2025 8:19A Dictated by : DARRIAN DUBON MD This examination was interpreted and the report reviewed and electronically signed by: DARRIAN DUBON MD on Jun 12 2025 5:22PM EST [id number] -2.1NormalRegency Hospital Company DXA TRABECLR BONE SCORE (TBS)on 59-81-9305YX DXA TRABECLR BONE SCORE (TBS)* * *Final [...] years, Gender: Male SCANNER INFORMATION: DXA Model: Interact.io [id number] Date Scanned: 06/06/2025 8:13 AM CLINICAL HISTORY: [...] FOR MORE INFORMATION ABOUT DIAGNOSIS AND TREATMENT: [facility] Osteoporosis and Metabolic Bone Disease:? www.ccf.org/arthritis/osteo National Osteoporosis Foundation:? www.nof.org International Society of Clinical Densitometry www.iscd.org Facility Manager Histology: [id number] Transcribe Date/Time: Jun 06 2025 8:19A Dictated by : DARRIAN DUBON MD This examination was interpreted and the report reviewed and electronically signed by: DARRIAN DUBON MD on Jun 12 2025 5:22PM EST [id number] -2.1NormalWestern Reserve HospitalOV 23-36-6651PSMRKdaoir Visit (ANGEL) JAM TOSCANO ([id number]) 1965 M Date Time Provider Department 06/06/25 8:20 AM DARRIAN DUBON During your visit today, we recorded the following information about you: Pulse Blood pressure Weight 66/minute 124/62 75.3 kg Darrian Dubon MD 06/07/2025 3:19 PM Signed FOLLOW UP VISIT Patient's Name: Jam Erwin [facility] [id number] PCP: Jose L Lackey MD [address] [place] [address] Consult Requested by: Jose L Lackey MD [address] [facility] [address] Other physicians: Store Product Demonstrator prev. Nel Lebron MD (his prev. generator operator left- Ronald Brown MD) ; Now following with Dr. Luis Antonio García Accompanied by: self Interim history: is here for f/u RA and OP Recording using ambient Kineta software for draft documentation of the visit was discussed with the patient/authorized office services representative; all questions welcomed and answered. Patient/authorized office services representative agreed to proceed Reports doing fine today, but this would be his last apt. 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 He has also been seeking local campaign developer closer to home for him. This is [...] He is still undergoing evaluation by his generator operator for his IBD disease activity. He has been on Entyvio. States he has gastrointestinal evaluation by his generator operator and states - Undergoing capsule endoscopy tomorrow to evaluate small intestine for potential tumors or bleeding. - Recent colonoscopy showed small benign tumors. States told his tumors were benign But still needs the camera States because he is bleeding and requiring His PCP and Store Product Demonstrator are addressing his anemia and further evaluating He had iron infusion 05/26/2025 States he is on potassium and iron infusion by his Primary care physician States his Primary care physician started him on 4 tbs/wk and is comfortable with that He continues on the sulfasalazine, and states his generator operator prescribes it, as well as the Entyvio. [...] He follows with Gastroenter (more content not included)...[facility] Reminderson 02-85-1747IyoldnxozQsldufcoz From: Tamiko Garcia I To: [facility] - Reminders/Recalls; Sent: 06/06/2025 07:53:34 EDT Show up: 03/16/2026 07:53:00 EDT Subject: Colonoscopy recall Due Date/Time: 05/11/2026 07:53:00 EDT Reminder/Recall 1 year colon recall - Dr. García 05/11/25[facility]Clinic Noteon 43-23-2228Tyvbzagewxjyqpzl Office/Clinic NoteGastroenterology Office/Clinic Note Chief Complaint follow up to egd/colonoscopy HPI Staff Established patient is a(n) 60 year old male who presents today for a follow up to EGD & Colonoscopy on 05/11/25. Colon recall needs placed. GI complaints: No. Continues Entyvio subq. serviced through [facility]. Any blood thinners? no Any GLP-1 [...] 90.8 fL (12/14/24) Chloride: 108 mmol/L (12/14/24) [place] Absolute: 0.5 E9/L (12/14/24) CO2: 27 mmol/L (12/14/24) [place] Auto: 7.5 % (12/14/24) Creatinine: 0.8 mg/dL [...] next colonoscopy, he prefers to stay at [facility] (more content not included)...[facility] on [facility]:Result Comment: Electronically Signed By: Jeannine Santizo MA\.br\Date and Time Signed: 05/22/25 09:02 EDT\.br\Electronically Co-Signed By: Ricky ROBLERO, Luis Antonio Tiwari\.br\Date and Time Co-Signed: 05/24/25 14:37 EDT25([place])D3 [facility] 31-41-673604886853-ekizetmlbgvsxo D3 [Mass/Vol]60.0 ng/aSTthzde69.0-80.0 [facility] HospitalComment on above:Order Comment: Specimen Type: BLOOD SPECIMEN Ordering Facility: [facility] Address: [address] [place], [place] [address]Performed By: #### 1989-3 #### [facility] CLIA [id number] [address] [place] [address] [facility] Auto Differential panel (Bld)on 44-85-5249Nhhywcblq (Bld) [#/Vol]0.03 10*3/uLNormal<0.11CBlanchard Valley Health System Bluffton HospitalComjohn d. dingell [facility] on above:Order Comment: Specimen Type: BLOOD SPECIMEN Ordering Facility: [facility] Address: [address] [place], [place] [address]Performed By: #### [id number] #### [facility] CLIA [id number] [address] [place] [address] 27746Mjqbnrjps/100 WBC (Bld)0.4 %NormalToledo Hospital Comment on above:Order Comment: Specimen Type: BLOOD SPECIMEN Ordering Facility: [facility] Address: [address] [place], [place] [address]Performed By: #### [id number] #### [facility] CLIA [id number] [address] [place] [address] 32326Jotavjkedqle cell count method Nom (Bld)AutoNormalClevelCleveland Clinic [facility] on above:Order Comment: Specimen Type: BLOOD SPECIMEN Ordering Facility: [facility] Address: [address] [place], [place] [address]Performed By: #### [id number] #### [facility] CLIA [id number] [address] [place] [address] 07049Sqbengcarey (Bld) [#/Vol]10*3/uLNormal<0.46[facility] on above:Order Comment: Specimen Type: BLOOD SPECIMEN Ordering Facility: [facility] Address: [address] [place], [place] [address]Performed By: #### 06148-0 #### [facility] CLIA [id number] [address] [place] [address] 96142Bsoxgjxjwnq/100 WBC (Bld)0.0 %NormalToledo Hospital Comment on above:Order Comment: Specimen Type: BLOOD SPECIMEN Ordering Facility: [facility] Address: [address] [place], [place] [address]Performed By: #### 88414-1 #### [facility] CLIA [id number] [address] [place] [address] 61747Cvjachwezks distribution width (RBC) [Ratio]15.0 %Normal 11.5-15.0[facility] on above:Order Comment: Specimen Type: BLOOD SPECIMEN Ordering Facility: [facility] Address: [address] [place], [place] [address]Performed By: #### 47936-0 #### [facility] CLIA [id number] [address] [place] [address] 95633Hagomkhnuo (Bld) [Volume fraction]35.9 %Low39.0-51.0[facility] on above:Order Comment: Specimen Type: BLOOD SPECIMEN Ordering Facility: [facility] Address: [address] [place], [place] [address]Performed By: #### 95917-9 #### [facility] CLIA [id number] [address] [place] [address] 21336Ewwkkopfcm (Bld) [Mass/Vol]11.6 g/dLLow13.0-17.0[facility] on above:Order Comment: Specimen Type: BLOOD SPECIMEN Ordering Facility: [facility] Address: [address] [place], [place] [address]Performed By: #### 56407-9 #### [facility] CLIA [id number] [address] [place] [address] 39991Mocjzuut granulocytes (Bld) [#/Vol]10*3/uLNormal<0.10[facility] on above:Order Comment: Specimen Type: BLOOD SPECIMEN Ordering Facility: [facility] Address: [address] [place], [place] [address]Performed By: #### 07098-2 #### [facility] CLIA [id number] [address] [place] [address] 32284Kezalnal granulocytes/100 WBC (Bld)0.1 %NormalKnox Community Hospital on above:Order Comment: Specimen Type: BLOOD SPECIMEN Ordering Facility: [facility] Address: [address] [place], [place] [address]Performed By: #### 29320-5 #### [facility] CLIA [id number] [address] [place] [address] 14928Yaptrupdhtf (Bld) [#/Vol]1.69 10*3/uLNormal1.00-4.00[facility] on above:Order Comment: Specimen Type: BLOOD SPECIMEN Ordering Facility: [facility] Address: [address] [place], [place] [address]Performed By: #### 39507-1 #### [facility] CLIA [id number] [address] [place] [address] 90297Smztnwuupfi/100 WBC (Bld)21.2 %NormalKnox Community Hospital on above:Order Comment: Specimen Type: BLOOD SPECIMEN Ordering Facility: [facility] Address: [address] [place], [place] [address]Performed By: #### 67178-9 #### [facility] CLIA [id number] [address] [place] [address] 22585UFX (RBC) [Entitic mass]30.1 ivBmhcah02.0-34.0[facility] on above:Order Comment: Specimen Type: BLOOD SPECIMEN Ordering Facility: [facility] Address: [address] [place], [place] [address]Performed By: #### 34383-3 #### [facility] CLIA [id number] [address] [place] [address] 85544BBTZ (RBC) [Mass/Vol]32.3 g/vOLlbosa61.5-36.0[facility] on above:Order Comment: Specimen Type: BLOOD SPECIMEN Ordering Facility: [facility] Address: [address] [place], [place] [address]Performed By: #### 90838-2 #### [facility] CLIA [id number] [address] [place] [address] 80875JAZ (RBC) [Entitic vol]93.0 pRYrjncz29.0-100.0[facility] on above:Order Comment: Specimen Type: BLOOD SPECIMEN Ordering Facility: [facility] Address: [address] [place], [place] [address]Performed By: #### 71007-0 #### [facility] CLIA [id number] [address] [place] [address] 08296Lpuhqhnwb (Bld) [#/Vol]0.73 10*3/uLNormal<0.87[facility] on above:Order Comment: Specimen Type: BLOOD SPECIMEN Ordering Facility: [facility] Address: [address] [place], [place] [address]Performed By: #### 60861-0 #### [facility] CLIA [id number] [address] [place] [address] 35434Hwmodchrp/100 WBC (Bld)9.2 %NormalToledo Hospital Comment on above:Order Comment: Specimen Type: BLOOD SPECIMEN Ordering Facility: [facility] Address: [address] [place], [place] [address]Performed By: #### 26189-3 #### [facility] CLIA [id number] [address] [place] [address] 17774Oegmobaijfe (Bld) [#/Vol]5.50 10*3/uLNormal1.45-7.50T[facility]edo HospitalComjohn d. dingell [facility] on above:Order Comment: Specimen Type: BLOOD SPECIMEN Ordering Facility: [facility] Address: [address] [place], [place] [address]Performed By: #### 85801-4 #### [facility] CLIA [id number] [address] [place] [address] 85155Vvmfozjsuxe/100 WBC (Bld)69.1 %NormalToledo HospitalComment on above:Order Comment: Specimen Type: BLOOD SPECIMEN Ordering Facility: [facility] Address: [address] [place], [place] [address]Performed By: #### 96909-0 #### [facility] CLIA [id number] [address] [place] [address] 17204Vfvnsxjmz RBC (Bld) [#/Vol]10*3/uLNormal<0.01[facility] on above:Order Comment: Specimen Type: BLOOD SPECIMEN Ordering Facility: [facility] Address: [address] [place], [place] [address]Performed By: #### 89664-8 #### [facility] CLIA [id number] [address] [place] [address] 21364Zsuzwopzk RBC/100 WBC (Bld) [Ratio]0.0 /[address] Charles Hospital ClevelandComment on above:Order Comment: Specimen Type: BLOOD SPECIMEN Ordering Facility: [facility] Address: [address] [place], [place] [address]Performed By: #### 34054-0 #### [facility] CLIA [id number] [address] [place], [place] [address]Tnylengl mean volume (Bld) [Entitic vol]8.4 fLLow9.0-12.7 [facility] on above:Order Comment: Specimen Type: BLOOD SPECIMEN Ordering Facility: [facility] Address: [address] [place], [place] [address]Performed By: #### 88966-2 #### [facility] CLIA [id number] [address] [place] [address] 30440Tvthsdswd (Bld) [#/Vol]337 10*3/oCAupzmb755-645KsvwbffswKnox Community Hospital on above:Order Comment: Specimen Type: BLOOD SPECIMEN Ordering Facility: [facility] Address: [address] [place], [place] [address]Performed By: #### 31264-2 #### [facility] CLIA [id number] [address] [place] [address] 52719WRQ (Bld) [#/Vol]3.86 10*6/uLLow4.20-6.00[facility] on above:Order Comment: Specimen Type: BLOOD SPECIMEN Ordering Facility: [facility] Address: [address] [place], [place] [address]Performed By: #### 42024-9 #### [facility] CLIA [id number] [address] [place], [place] [address]ZQR (Bld) [#/Vol]7.96 10*3/uLNormal3.70-11.00[facility] on above:Order Comment: Specimen Type: BLOOD SPECIMEN Ordering Facility: [facility] Address: [address] [place], [place] [address]Performed By: #### 75178-5 #### [facility] CLIA [id number] [address] [place], [place] [address]BJY SerPl-mCncon 70-02-3317IAG [Mass/Vol]3.5 mg/dLHigh<0.9 [facility] HospitalComment on above:Order Comment: Specimen Type: BLOOD SPECIMEN Ordering Facility: [facility] Address: [address] [place], [place] [address]Performed By: #### 02484-4 #### [facility] CLIA [id number] [address] [place], [place] [address]Ugkgdhnq crosslinked C-telopeptide [Mass/Vol]on 05-23-2025 TELOPEPTIDE, BETA CROSS PSSTSZ464 pg/gCTupbma249-575FcpkypoutBlanchard Valley [facility] Comment on above:Order Comment: Specimen Type: BLOOD SPECIMEN Ordering Facility: [facility] Address: [address] [place], [place] [address]Performed By: #### 78887-4 #### [facility] CLIA [id number] [address] [place] [address] [place] AMERICARenal function 2000 panelon 34-69-5935Wnyuvsx [Mass/Vol]4.0 g/dLNormal3.9-4.9CBlanchard Valley Health System [facility] Comment on above:Order Comment: Specimen Type: BLOOD SPECIMEN Ordering Facility: [facility] Address: [address] [place], [place] [address]Performed By: #### 85977-2 #### [facility] CLIA [id number] [address] [place], [place] [address]Csppn gap [Moles/Vol]12 mmol/LNormal8-15T[facility] HospitalComment on above:Order Comment: Specimen Type: BLOOD SPECIMEN Ordering Facility: [facility] Address: [address] [place], [place] [address]Performed By: #### 78870-8 #### [facility] CLIA [id number] [address] [place], [place] [address]Xufebbi [Mass/Vol]9.5 mg/dLNormal8.5-10.2CGlenbeigh Hospital on above:Order Comment: Specimen Type: BLOOD SPECIMEN Ordering Facility: [facility] Address: [address] [place], [place] [address]Performed By: #### 39350-5 #### [facility] CLIA [id number] [address] [place], [place] [address]Naivaajt [Moles/Vol]105 mmol/FYndoha64-798NxuyavytbKnox Community Hospital on above:Order Comment: Specimen Type: BLOOD SPECIMEN Ordering Facility: [facility] Address: [address] [place], [place] [address]Performed By: #### 35858-5 #### [facility] CLIA [id number] [address] [place] [address]23[address]KK6 [Moles/Vol]23 mmol/KJiuwmu03-78CfpupfcqmToledo Hospital Comment on above:Order Comment: Specimen Type: BLOOD SPECIMEN Ordering Facility: [facility] Address: [address] [place], [place] [address]Performed By: #### 88224-5 #### [facility] CLIA [id number] [address] [place] [address] 96113Ztunkneamz [Mass/Vol]0.73 mg/dLNormal0.73-1.22[facility] on above:Order Comment: Specimen Type: BLOOD SPECIMEN Ordering Facility: [facility] Address: [address] [place], [place] [address]Performed By: #### 78840-3 #### [facility] CLIA [id number] [address] [place], [place] [address]Cgidunxdvz and Glomerular filtration rate.predicted panel (S/P/Bld)104 mL/min/1.73m???Normal>=60[facility] on above:Order Comment: Specimen Type: BLOOD SPECIMEN Ordering Facility: [facility] Address: [address] [place], [place] [address]Result Comment: Estimated Glomerular Filtration Rate (eGFR) is [...] not accurately reflect actual GFR.Performed By: #### 71334-9 #### [facility] CLIA [id number] [address] [place] [address] 57296Zctldoo [Mass/Vol]135 mg/dSObmx50-51LyfngulazToledo Hospital Comment on above:Order Comment: Specimen Type: BLOOD SPECIMEN Ordering Facility: [facility] Address: [address] [place], [place] [address]Plxvrz Comment: The [place] Diabetes Association (ADA) provides guidance for cutoff [...] Standards of Medical Care in Diabetes 2016, [place] [employer]. Diabetes Care. 2016.39(Suppl 1).Performed By: #### 60600-5 #### [facility] CLIA [id number] [address] [place] [address] 19527Hhmaggdty [Mass/Vol]2.3 mg/dLLow2.7-4.8CBlanchard Valley Health System Bluffton HospitalComment on above:Order Comment: Specimen Type: BLOOD SPECIMEN Ordering Facility: [facility] Address: [address] [place], [place] [address]Iovytsmsk By: #### 91944-0 #### [facility] CLIA [id number] [address] [place], [place] [address]Flwbvygur [Moles/Vol]4.2 mmol/LNormal3.7-5.1ClevelBlowing Rock HospitalComment on above:Order Comment: Specimen Type: BLOOD SPECIMEN Ordering Facility: [facility] Address: [address] [place] [address]Dlznzesjy By: #### 94072-6 #### [facility] CLIA [id number] [address] [place], [place] [address]Tfbdsu [Moles/Vol]140 mmol/CEtlimt536-379UjvwahnrmKnox Community Hospital on above:Order Comment: Specimen Type: BLOOD SPECIMEN Ordering Facility: [facility] Address: [address] [place] [address]Uwngysryd By: #### 03446-9 #### [facility] CLIA [id number] [address] [place], [place] [address]Ndij nitrogen [Mass/Vol]17 mg/dLNormal9-24[facility] on above:Order Comment: Specimen Type: BLOOD SPECIMEN Ordering Facility: [facility] Address: [address] [place] [address]Nzkznstyp By: #### 18849-6 #### [facility] CLIA [id number] [address] [place], [place] [address]Dfvnllgrkb Visit Summaryon 91-18-0708Vcoogtibzw Visit Summary Ambulatory Visit Summary JAM TOSCANO [...] Follow Up with Ricky ROBLERO, SHAZIA Velasco, MED When: In 3 months Where: [address] [place] [address], [address] [phone] Medications What How Much When Instructions Unchanged [...] PSA (prostate specific antigen) Ulcerative colitis, universal Harrietta ulcerative colitis Ureteral stone with hydronephrosis Urethral [...] signed up for this yet, please contact [employer] at [phone] to get signed up today. Language Information Language assist (more content not included)...[facility] Surgical Pathology Reporton [id number] Pathology ReportMyakka City - [address] [address]- Surgical Pathology Report Collected Date/Time: 05/11/2025 09:14 [...] [facility]. The (more content not included)...NormalSt. Francis HospitalComment on above:Performed By: #### [id number] #### [facility] [address] [place], [place] [address]Bgja OR Intraoperative Recordon 93-36-3702Mnui OR Intraoperative RecordMain OR Intraoperative Record IntraOp Document Type FT Summary Primary Physician: Luis Antonio García MD Finalized Date/Time: 05/12/25 09:28:01 Pt. Name: JAM TOSCANO Angel /Sex: 1965 Male Med Rec #: [id number] Physician: Ricky ROBLERO, Luis Antonio Tiwari Financial #: [id number] Pt. Type: O Room/Bed: / Admit/Disch: 05/11/25 [...] Wallace RN, Jennifer Flores Role Performed Anesthesiologist Spray Technician - Primary Scrub - Primary Delivery Engineer Time In 05/11/25 09:02:00 05/11/25 09:02:00 05/11/25 [...] and tissue Entry 1 Skin Integrity Intact, Norman, Warm, & Skin Abnormality No Dry Outcomes Met? Yes Last Modified By: Rodrigo RAMESH, (more content not included)...[facility]Discharge Instructionson [id number] InstructionsDischarge Instructions ARNULFOJAM SCHUSTER Angel :1965 Visit [...] With: Ricky ROBLERO, Luis Antonio Tiwari Where: [facility] [address] [place] [address] [place] [address]- New Follow Up Appointments after Discharge Follow Up with Ricky ROBLERO, Luis Antonio Tiwari, [facility] When: Comments: office will call for follow up Where: [address], [address] [facility] [place] [address] [place] [address] [phone] Medications What How Much When Instructions Next [...] PSA (prostate specific antigen) Ulcerative colitis, universal [place] ulcerative colitis Ureteral stone with hydronephrosis Urethral [...] activities are safe for you. ??? Take oxtv-zew-kjqsuue and prescription medicines only as told by your health care provider. Contact (more content not included)...[facility]imaComment on above:Result Comment: Electronically Signed By: Jose RAMESH, Mary Lou\.br\Date and Time Signed: 05/11/25 09:53 EDTMain OR PACU I Recordon [id number] OR PACU I RecordMain OR PACU I Record PACU Phase I Document Type FT Summary Primary Physician: Luis Antonio García MD Finalized Date/Time: 05/11/25 10:51:19 Pt. Name: JAM TOSCANO/Sex: 1965 Male Med Rec #: [id number] Physician: Luis Antonio García MD Financial #: [id number] Pt. Type: O Room/Bed: / Admit/Disch: 05/11/25 [...] Signed By: Mary Lou Garcia RN 05/11/25 10:51NoBucyrus Community HospitalMain OR Preoperative Recordon 62-52-7580Amrr OR Preoperative RecordMain OR Preoperative Record Holding Area Document Type FT Summary Primary Physician: Luis Antonio García MD Finalized Date/Time: 05/11/25 08:28:46 Pt. Name: JAM TOSCANO/Sex: 1965 Male Med Rec #: [id number] Physician: Luis Antonio García MD Financial #: [id number] Pt. Type: O Room/Bed: / Admit/Disch: 05/11/25 [...] Signed By: Obdulia Del Toro RN 05/11/25 08:28NormOhioHealth Shelby HospitalNo Panel Informationon 13-00-5324Awnppcbnp Study observation (narrative)[facility] K[facility] - left 1 or 2 Viewson 33-55-9847Rsttsgq Result: AP and lateral of left knee [...] dislocation. Impression: Unremarkable left total knee arthroplasty. [facility] Knee - right 1 or 2 Viewson 38-62-0320Blkwoqx Result: AP and lateral of right knee [...] dislocation. Impression: Unremarkable right total knee arthroplasty. [facility] Hip - right 3 Viewson 63-88-2994Ldzslwb Result: AP and lateral of right hip showed acceptable position and alignment of right total hip arthroplasty. There was no evidence of loosening of the acetabular cup or femoral stem. Femoral head was well centered in the acetabular liner without evidence of asymmetric or accelerated wear. There was no gross evidence of fracture and/or dislocation. Impression: Unremarkable right total hip arthroplasty. [facility] HospitalRad[facility] Study observation (narrative)[facility] HospitalCNOV 90-75-3259UPTNUsfeyt Visit (ANGEL) JAM TOSCANO ([id number]) 1965 M Date Time Provider Department 02/14/25 7:20 AM DARRIAN DUBON During your visit today, we recorded the following information about you: Pulse Blood pressure Weight 66/minute 134/74 79 kg Darrian Dubon MD 02/20/2025 5:28 PM Signed FOLLOW UP VISIT Patient's Name: Jam Toscano [address] [place] [address] [place] [address] PCP: Jose L Lackey MD [address] [place] [address] Consult Requested by: Jose L Lackey MD [address] [facility] [address] Other physicians: Store Product Demonstrator prev. Nel Lebron MD (his prev. generator operator left- Ronald Brown MD) ; Now following [...] BRBPR and denies melena. He follows with Store [employer] Dem[employer]ator for his UC. States has scopes this summer by his generator operator. He is following with Orthopedics for his osteoarthroses and non-inflammatory joint pains. He has a chronic rotator cuff tear and extensive bilateral glenohumeral degenerative disease. His s/p b/l TKR and rt THR. Hissed rate was elevated at 79 04/2024 at time of his pneumonia. He continues on sulfasalazine and Entyvio by his generator operator. He does not describe RA related symptoms No jt pains or swelling outside of the LLE from TKR Denies rheum nodules No stiffness He is on sulfasalazine per generator operator for his UC and this has been controlling his RA He is pleased with his treatment regimen He also states that his IBD is well controlled, states told is in remission, on Entyvio Doing exercise and working with personal vehicle advisor at the gym and will be going [...] in IBD and is following with local generator operator for that. Has been on Humira since Sep 2020 (started with 80 mg loading dose and since has been on 40 mg every 2 wks) He was pleased with Enbrel response to his RA and later was switched to Humira, reports has similar benefit and is pleased with response. His generator operator switched him to Humira for optimal mgt of IBD and he feels this has helped his IBD better. Reports still gets 8 BM's a day, does not have BM at night, does not have to wake up from sleep. Has been following with his generator operator for his UC Had colonoscopy 11/22/2021 with reported marked improvement in asc/transv/desc colon and severe active in rectum, histopath with active colitis with erosions. States Dr. Lebron has started him on rectal enemas. Recent colonoscopy with reported active colitis. He tells me that he continues to have multiple BM's; His generator operator prescribed pred. course, completed recently. No jt [...] us, he is on Humira per his Store Product Demonstrator He is off Enbrel, was switched to Humira by his generator operator. (previously was on Enbrel 25 mg twice a wk and has been in remission since on Enbrel and very pleased with his treatment regimen) He is on Humira 40 mg every 2 wks by his Store Product Demonstrator He is on sulfasalazine, Humira and mesalamine enemas per his generator operator I have reviewed benefits of a whole food plant based diet He consumes dairy, cheese, sausage, hamburger. I have advised him on avoiding meats and dairy and reviewed reports and patient experience with flare of IBD and RA, as well as gastrointestinal dysbiosis. (more content not included)...NormalToledo HospitalQuantiferon-TB Plus (Client Incubated)on 65-06-3352Msvcs interferon background IA Qn (Bld)0.09 International_Unit/mLInvalid Interpretation [facility] Comment on above:Performed By: #### [id number] #### [facility] [address] [place] [address]. tuberculosis stim IFN-g by CD4+ CD8+ T-cells corrected for background Qn (Bld)0.07 International_Unit/mLInvalid Interpretation CodeSt. Francis HospitalComment on above:Performed By: #### [id number] #### [facility] [address] [place] [address]. tuberculosis stim IFN-g by CD4+ T-cells corrected for background Qn (Bld)0.07 International_Unit/mLInvalid Interpretation [facility] CenterComment on above:Performed By: #### [id number] #### [facility] [address] [place] [address]. tuberculosis stim IFN-g Ql (Bld) [Interp]NegativeInvalid Interpretation CodeNegativeSt. Francis HospitalComment on above:Result Comment: No response to [...] interferon gamma. Chemiluminescence immunoassay methodology Performed at: [facility] [id number] PhD Tarun OlivasPerformed By: #### [id number] #### [facility] [address] [place], [place] [address]Emlmkfh stimulated gamma interferon corrected for background Qn (Bld)>10.00Invalid Interpretation CodeSt. Francis HospitalComment on above:Performed By: #### [id number] #### [facility] [address] [place], [place] [address]Oieaqew comment (Unsp spec) [Interp]CommentInvalid Interpretation CodeSt. Francis HospitalComment on above:Result Comment: QuantiFERON-TB Gold Plus [...] a control for the test.Performed By: #### [id number] #### [facility] [address], [place] [address]WUC Ab Scron [id number] M2 IgG Qn (S)<20.0Invalid Interpretation Code0.0-20.0St. Francis HospitalComment on above:Result Comment: Negative 0.0 - 20.0 Equivocal 20.1 - 24.9 Positive >24.9 Mitochondrial (M2) Antibodies are found in 90-96% of patients with primary biliary cirrhosis. Performed at: [address] [id number] PhD Tarun Billsformed By: #### [id number] #### [facility] [address] [place], [place] [address]Zymmlg Disease Comprehensiveon 52-12-2398Hieqzoqxwx IgA Ql (S) NegativeInvalid Interpretation CodeNegativeSt. Francis HospitalComment on above:Performed By: #### [id number] #### [facility] [address] [place], [place] [address]Tbmdbuw peptide IgA Qn (S)5 unit(s)Invalid Interpretation Code 0-19St. Francis HospitalComment on above:Result Comment: Negative 0 - 19 Weak Positive 20 - 30 Moderate to Strong Positive >30Performed By: #### [id number] #### [facility] [address], [place] [address]Qvejwkt peptide IgG Qn (S)2 unit(s)Invalid Interpretation Code 0-19St. Francis HospitalComment on above:Result Comment: Negative 0 - 19 Weak Positive 20 - 30 Moderate to Strong Positive >30Performed By: #### [id number] #### [facility] [address] [place] [address]GgE [Mass/Vol]199 mg/dLInvalid Interpretation Flol92-065JdyrwiSt. Francis HospitalComment on above:Result Comment: Performed at: [facility] [id number] PhD Tarun OlivasPerformed By: #### [id number] #### [facility] [address], [place] [address]sVR IgA Qn (S)<2Invalid Interpretation Code0-3FTriHealth Bethesda Butler HospitalComment on above:Result Comment: Negative 0 - 3 Weak Positive 4 - 10 Positive >10 Tissue Transglutaminase (tTG) has been identified as the endomysial antigen. Studies have demonstr- ated that endomysial IgA antibodies have over 99% specificity for gluten sensitive enteropathy.Performed By: #### [id number] #### [facility] [address], [place] [address]aIZ IgG Qn (S)6 unit/mLHigh0-5FTriHealth Bethesda Butler Hospital Comment on above:Result Comment: Negative 0 - 5 Weak Positive 6 - 9 Positive >9Performed By: #### [id number] #### [facility] [address] [place], [place] [address]Srv Bs Abon [id number] surface Ab Ql (S)Non-ReactiveInvalid Interpretation CodeSt. Francis HospitalComment on above:Result Comment: Non Reactive: Not immune to HBV infection. Equivocal: Unable to determine if anti-HBs is present at levels consistent with immunity. Reactive: Anti-HBs concentration detected at greater than 10 mIU/mL. Individual is considered to be immune to infection with HBV. Performed at: [address] [id number] PhD Tarun Billsformed By: #### [id number] #### [facility] [address] [place], [place] [address]Oin Bs Agon 62-17-8481FPQ surface Ag IA QlNegativeInvalid Interpretation CodeNegativeFisher Kennedy Krieger InstituteComment on above:Result Comment: Performed at: [address] [id number] PhD Tarun Billsformed By: #### [id number] #### [facility] [address], [place] [address]Jtprkufglf Visit Summaryon [id number] Visit Summary Ambulatory Visit Summary RIMMA JAM [...] With: Ricky ROBLERO, Luis Antonio Tiwari Where: [facility] [address] [place] [address]- You Need to Complete the Following C-Reactive [...] PSA (prostate specific antigen) Ulcerative colitis, universal Harrietta ulcerative colitis Ureteral stone with hydronephrosis Urethral stone Historical - Any problem that you are no longer receiving treatment for. Extreme obesity Ulcerative colitis Patient Survey You may receive a survey via text or e-mail asking about your office visit. Please share your experience with us by completing your survey. We appreciate your feedback and thank you for choosing us for your care. NormalSt. Francis HospitalCB w/ Auto Diffon 12-14-2024 Basophils/100 WBC (Bld)0.5 %Normal0.0-2.0St. Francis HospitalComment on above:Performed By: #### [id number] #### [facility] [address] [place] [address]Vdhunmfgj/Leukocytes Auto (Bld) [Pure # fraction]0.0 E9/LNormal 0.0-0.2Fisher Kennedy Krieger InstituteComment on above:Performed By: #### [id number] #### [facility] [address], [place] [address]Mxenoopwotf (Bld) [#/Vol]0.0 E9/LNormal0.0-0.5Fisher Kennedy Krieger InstituteComment on above:Performed By: #### [id number] #### [facility] [address], [place] [address]Ssxwtapypfu/100 WBC (Bld)0.0 %Normal0.0-8.0St. Francis HospitalComment on above:Performed By: #### [id number] #### [facility] [address], [place] [address]Elnxixwctpy distribution width (RBC) [Ratio]15.6 %High10.9-14.2 St[facility] Francis HospitalComment on above:Performed By: #### [id number] #### [facility] [address] [place] [address]Ndcdmsaglj (Bld) [Volume fraction]36.2 %Low37.7-49.0St. Francis HospitalComment on above:Performed By: #### [id number] #### [facility] [address] [place] [address] 359[address]Pemqrheyis (Bld) [Mass/Vol]12.6 g/dLLow13.5-17.5FTriHealth Bethesda Butler HospitalComment on above:Performed By: #### [id number] #### [facility] [address] [place] [address]Iyynpzpurtp (Bld) [#/Vol]1.6 E9/LNormal1.0-4.0St. Francis HospitalComment on above:Performed By: #### [id number] #### [facility] [address] [place] [address]Ijtodqhddyw/100 WBC (Bld)24.8 %Zxuqrg59.0-50.0St. Francis HospitalComment on above:Performed By: #### [id number] #### [facility] [address] [place] [address]QGS (RBC) [Entitic mass]31.7 zxUkrxcc21.0-34.0St. Francis HospitalComment on above:Performed By: #### [id number] #### [facility] [address] [place] [address]VHOJ (RBC) [Mass/Vol]34.9 g/iPDyjaib03.4-36.0St. Francis HospitalComment on above:Performed By: #### [id number] #### [facility] [address] [place] [address] 250[address]RNI (RBC) [Entitic vol]90.8 fVPrhoci67.0-100.0St. Francis HospitalComment on above:Performed By: #### [id number] #### [facility] [address] [place] [address]Pwfxoieuu (Bld) [#/Vol]0.5 E9/LNormal0.2-1.0St. Francis HospitalComment on above:Performed By: #### [id number] #### [facility] [address] [place] [address]Qajpgrepkqg (Bld) [#/Vol]4.4 E9/LNormal2.0-7.5FTriHealth Bethesda Butler HospitalComment on above:Performed By: #### [id number] #### [facility] [address] [place] [address] 89[address]Zzwaigomwbe/100 WBC (Bld)67.2 %Vuwqli73.0-75.0St. Francis HospitalComment on above:Performed By: #### [id number] #### [facility] [address] [place] [address] 250[address]Lmqzozdm656.0 E9/ZHypbdz808.0-500.0[facility] Comment on above:Performed By: #### [id number] #### [facility] [address] [place] [address]Zzjanbxk mean volume (Bld) [Entitic vol]6.9 fLNormal6.4-10.8 St[facility] HospitalComment on above:Performed By: #### [id number] #### [facility] [address] [place] [address] 84673MVE (Bld) [#/Vol]4.0 E12/LLow4.3-5.9[facility] Comment on above:Performed By: #### [id number] #### [facility] [address] [place] [address] 99863CLX corrected for nucl RBC Auto (Bld) [#/Vol]6.6 E9/LNormal 4.0-11.0St. Francis HospitalComment on above:Performed By: #### [id number] #### [facility] [address], [place] [address]TMYxz 67-02-4466Ucgrgrn [Mass/Vol]4.1 g/dLNormal3.3-5.0St. Francis HospitalComment on above:Performed By: #### [id number] #### [facility] [address], [place] [address]Oqkgsfz/Globulin (S) [Mass conc ratio]1.5Yxyjtp6.1-2.2FTriHealth Bethesda Butler HospitalComment on above:Performed By: #### [id number] #### [facility] [address] [place] [address] 11530GTG [Catalytic activity/Vol]88 Int._Unit/QBdcqnk15-03VzeyawSt. Francis HospitalComment on above:Performed By: #### [id number] #### [facility] [address] [place] [address] 270[address]XYG No additional P-5'-P [Catalytic activity/Vol]27 Int._Unit/L Normal6-46St. Francis HospitalComment on above:Performed By: #### [id number] #### [facility] [address] [place] [address] 54[address]Ncqii gap [Moles/Vol]9 mmol/LNormal6-16St. Francis HospitalComment on above:Performed By: #### [id number] #### [facility] [address], [place] [address]SUL [Catalytic activity/Vol]29 Int._Unit/LNormal5-43St. Francis HospitalComment on above:Performed By: #### [id number] #### [facility] [address] [place] [address]Rrpumtzen [Mass/Vol]0.4 mg/dLNormal0.0-1.1FTriHealth Bethesda Butler HospitalComment on above:Performed By: #### [id number] #### [facility] [address], [place] [address]Jknfurl [Mass/Vol]9.1 mg/dLNormal8.9-11.1FTriHealth Bethesda Butler HospitalComment on above:Performed By: #### [id number] #### [facility] [address], [place] [address]Ufoexeiz [Moles/Vol]108 mmol/DUbzexu449-183XnckkwSt. Francis HospitalComment on above:Performed By: #### [id number] #### [facility] [address], [place] [address]RE3 [Moles/Vol]27 mmol/HVcuvvx14-47GyhyscSt. Francis Hospital Comment on above:Performed By: #### [id number] #### [facility] [address], [place] [address]Dxhbtyasmv [Mass/Vol]0.8 mg/dLNormal0.5-1.3FTriHealth Bethesda Butler HospitalComment on above:Performed By: #### [id number] #### [facility] [address], [place] [address]Hzwlesyg (S) [Mass/Vol]2.8 g/dLNormal1.4-4.0St. Francis HospitalComment on above:Performed By: #### [id number] #### [facility] [address], [place] [address]Hybugpq [Mass/Vol]94 mg/bDVwhzdp66-187PrjfsnSt. Francis HospitalComment on above:Performed By: #### [id number] #### [facility] [address], [place] [address]Nzxpyvxmi [Moles/Vol]4.7 mmol/LNormal3.5-5.3FTriHealth Bethesda Butler HospitalComment on above:Performed By: #### [id number] #### [facility] [address], [place] [address]Hfdbnii [Mass/Vol]6.9 g/dLNormal6.0-7.8St. Francis HospitalComment on above:Performed By: #### [id number] #### [facility] [address], [place] [address]Xiwiif [Moles/Vol]139 mmol/HUfdvdr038-541JyscahSt. Francis HospitalComment on above:Performed By: #### [id number] #### [facility] [address], [place] [address]Xzih nitrogen [Mass/Vol]16 mg/dLNormal5-21St. Francis HospitalComment on above:Performed By: #### [id number] #### [facility] [address], [place] [address]Wbep nitrogen/Creatinine [Mass ratio]20 No RudbcHmhvoz49-85 [facility] HospitalComment on above:Performed By: #### [id number] #### [facility] [address], [place] [address]KJXsk 22-13-9675AHS [Mass/Vol]0.2 mg/dLNormal<=1.9St. Francis HospitalComment on above:Performed By: #### [id number] #### [facility] [address], [place] [address]Anfydscsnpdmbgll Office/Clinic Noteon 12-14-2024 Gastroenterology Office/Clinic NoteGastroenterology Office/Clinic Note Chief Complaint 6 month follow up HPI Staff Established patient is a(n) 59 year old male who presents today for a(n) 6 month follow up. Approved for Entyvio pens q2 weeks - serviced through [facility]. Effective? Yes Any frequency, urgency, abdominal pain, n/v, bloody or mucus stools? No Any blood thinners? no Any GLP-1 agonists? no Last visit 06/13/24 w/Dr. García: Assessment/Plan 1. Harrietta ulcerative colitis (K51.00: Ulcerative (chronic) pancolitis without [...] next colonoscopy, he prefers to stay at [facility] He has also RA, no specific therapy for now, follows with Dr. Valente at [place] We discussed that having this lesion in [...] 89.5 fL (03/02/24) Chloride: 107 mmol/L (03/02/24) [place] Absolute: 0.5 E9/L (03/02/24) CO2: 27 mmol/L (03/02/24) [place] Auto: 8.2 % (03/02/24) Creatinine: 0.8 mg/dL (03/02/24) MPV: 6.9 fL (03/02/24) Globulin: 3 gm/dL (03/02/24) Neutro Absolute: 4.2 E9/L (03/02/24) Glucose Lvl: 97 mg/dL (03/02/24) Neutro Auto: 63.6 % (03/02/24) Potassium Lvl: 3.6 mmol/L (03/02/24) Platelet: 344 E9/L (03/02/24) Sodium Lvl: 141 mmol/L (03/02/24) RBC: 3.9 E12/L Low (03/02/24) Total Protein: 7 (more content not included)...NormalSt. Francis Hospital Comment on above:Result Comment: Electronically Signed By: Ricky ROBLERO, Luis Antonio Tiwari\.br\Date and Time Signed: 12/14/24 08:52 ESTeGFRon 27-36-4938zWSM251 mL/min/1.73 b1Xqdyad>=59St. Francis HospitalComment on above:Performed By: #### [id number] #### [facility] [address], [place] [address]Skhhanczhl Visit Summaryon 35-40-6764Awjjnnlsxm Visit Summary Ambulatory Visit Summary RIMMA JAM [...] With: Ricky ROBLERO, Luis Antonio Tiwari Where: [facility] [address] Suite [facility] [address] [address]- You Need to Schedule the Following Appointments Follow Up with DARRELL ROBLERO, LOREE Bunch When: Where: [facility] [address], [place] [address]- Medications What How Much When Instructions Unchanged [...] PSA (prostate specific antigen) Ulcerative colitis, universal Harrietta ulcerative colitis Ureteral stone with hydronephrosis Urethral [...] to develop. What are (more content not included)...[facility] LimaCNPNon 52-56-7207JMGUJgmjpcuvp (DESTINYULN) JAM TOSCANO ([id number]) 1965 M Date Time Provider Department 11/21/24 [...] toe 3 days ago. 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 Denies any change in [...] apt with me or any rheum ANGÉLICA ([facility]ICKUP or PA) who has opening soon. thank you kindly, Estephania Lara LPN 11/23/2024 8:01 AM Signed Please offer appt with Dr Dubon or [facility], if patient still interested. Jordyn Roberson 11/23/2024 [...] daily. - atorvastatin (LIPITOR (more content not included)...NormalBellevue Hospital ClevelandPSA Totalon 87-32-7792Qcbkmlio specific Ag [Mass/Vol]3.3 ng/mLNormal 0.1-3.5Fisher Kennedy Krieger InstituteComment on above:Result Comment: The concentration of PSA determined by different manufacturers can vary due to diffe rences in assay methods and reagent specificity. Values obtained from different assay methods cannot be used interchangeably. The methodology used for this result was chemiluminescence using [employer]'s Access Hybritech PSA reagent.Performed By: #### [id number] #### [facility] [address] [place], [place] [address]LVVOaj 14-49-2073YHGFXjbeji Visit (ANGEL) JAM TOSCANO ([id number]) 1965 M Date Time Provider Department 10/05/24 7:20 AM DARRIAN DUBON During your visit today, we recorded the following information about you: Pulse Blood pressure Weight 66/minute 128/76 77.7 kg Darrian Dubon MD 10/16/2024 7:47 PM Signed FOLLOW UP VISIT Patient's Name: Jam Toscano Melissa Rip Linda [facility] [address] PCP: Jose L Lackey MD [address] [place] [phone] Consult Requested by: Jose L Lackey MD [address] [place] [phone] Other physicians: Store Product Demonstrator prev. Nel Lebron MD (his prev. generator operator left- Ronald Brown MD) ; Now following [...] No stiffness He is on sulfasalazine per generator operator for his UC and this has been controlling his RA He is pleased with his treatment regimen He also states that his IBD is well controlled, states told is in remission, on Entyvio Doing exercise and working with personal vehicle advisor at the gym and will be going [...] in IBD and is following with local generator operator for that. Has been on Humira since Sep 2020 (started with 80 mg loading dose and since has been on 40 mg every 2 wks) He was pleased with Enbrel response to his RA and later was switched to Humira, reports has similar benefit and is pleased with response. His generator operator switched him to Humira for optimal mgt of IBD and he feels this has helped his IBD better. Reports still gets 8 BM's a day, does not have BM at night, does not have to wake up from sleep. Has been following with his generator operator for his UC Had colonoscopy 11/22/2021 with reported marked improvement in asc/transv/desc colon and severe active in rectum, histopath with active colitis with erosions. States Dr. Lebron has started him on rectal enemas. Recent colonoscopy with reported active colitis. He tells me that he continues to have multiple BM's; His generator operator prescribed pred. course, completed recently. No jt [...] us, he is on Humira per his Store Product Demonstrator He is off Enbrel, was switched to Humira by his generator operator. (previously was on Enbrel 25 mg twice a wk and has been in remission since on Enbrel and very pleased with his treatment regimen) He is on Humira 40 mg every 2 wks by his Store Product Demonstrator He is on sulfasalazine, Humira and mesalamine enemas per his generator operator I have reviewed benefits of a whole food plant based diet He consumes dairy, cheese, sausage, hamburger. I have advised him on avoiding meats and dairy and reviewed reports and patient experience with flare of IBD and RA, as well as gastrointestinal dysbiosis. I advised him on a whole foods plant based diet. 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 (DC) DC:[facility] Microscopic Description A-E: Microscopic examination performed unless gross only specified. The use of one or more reagents in the above tests is regulated as an analyte specific reagent (ASR). The test or tests are ordered following initial H&E microscopic examination. The performance characteristics were determined by the Laboratory of [facility]. They have not been cleared or approved by the US Food and Drug Administration. The FDA has determined that such clearance or approval is not necessary. These tests are used for clinical purposes. They should not be regarded as investigational or for research. Appropriate positive and negative controls are performed and are acceptable. [facility] Hospital LimaComment on above:Performed By: #### [id number] #### [facility] [address], [place] [address]TJ Hand - bilateral PA and Lateral and Obliqueon 03-14-2024 IMPRESSION: Severe changes of chronic inflammatory arthritis, similar to prior. Left hand metallic foreign body. Facility Manager Histology: CODY Transcribe Date/Time: Mar 14 2024 1:31P Dictated by : HORACIO DAWSON MD This examination was interpreted and the report reviewed and electronically signed by: HORACIO DAWSON MD on Mar 14 2024 5:53PM [facility] DIVISION OF RADIOLOGY* * *Final Report* [...] level of the MCPs. DIVISION OF RADIOLOGYProvider, [facility] [place] - 03/14/2024 * * *Final Report* * [...] to prior. Left hand metallic foreign body. Facility Manager Histology: CODY Transcribe Date/Time: Mar 14 2024 1:31P Dictated by : HORACIO DAWSON MD This examination was interpreted and the report reviewed and electronically signed by: HORACIO DAWSON MD on Mar 14 2024 5:53PM [facility] HospitalRadiology Study observation (narrative)Bellevue HospitalXR Hand - bilateral PA and Lateral and ObliqueOrdered By: Ccf Provider on 03-14-2024 Bellevue HospitalLIPID PROFILEon [id number]-HDL RATIO NORMSEE BELOWBlanchard Valley Health SystemComment on above:Result Comment: 3.3 - 4.4 LOW RISK 4.4 - 7.1 AVERAGE RISK 7.1 - 11.0 MODERATE RISK >11.0 HIGH RISKPerformed By: #### LIPID, LIVER #### [facility] [address] [address] [address] Rj MillerCholesterol [Mass/Vol]99 mg/dLNormal<=200[facility] Comment on above:Performed By: #### LIPID, LIVER #### [facility] [address] [address] [address] Rj Sheikhesterol in HDL [Mass/Vol]44 mg/vGBesopf49-65PzoOhiohealthComment on above:Performed By: #### LIPID, LIVER #### [facility] [address] [address] [address] Rj MillerCholesterol in LDL [Mass/Vol]45.4 mg/dLBlanchard Valley Health SystemComment on above:Performed By: #### LIPID, LIVER #### [facility] [address] [place] [address] Dr. Rj MillerCholesterol.total/Cholesterol in HDL [Mass ratio]2.3 {ratio} NormalOhiohealthComment on above:Performed By: #### LIPID, LIVER #### [facility] [address] [place] [address] Dr. Rj Johnson NORMAL> or = 60 mg/dl - LOW CARDIOVASCULAR RISK <40 mg/dl - HIGH CARDIOVASCULAR RISKBlanchard Valley Health SystemComment on above:Performed By: #### LIPID, LIVER #### [facility] [address] [place] [address] Dr. Rj MillerLDL CALC NORMALSEE BELOWBlanchard Valley Health SystemComment on above:Result Comment: <100 mg/dl OPTIMAL 100 - 129 mg/dl NEAR OR ABOVE OPTIMAL 130 - 159 mg/dl BORDERLINE HIGH 160 - 189 mg/dl HIGH >190 mg/dl VERY HIGH Performed By: #### LIPID, LIVER #### [facility] [address] [place] [address] Dr. Rj MillerTriglyceride [Mass/Vol]48 mg/dLNormal<=150[facility] Comment on above:Performed By: #### LIPID, LIVER #### [facility] [address] [place] [address] Dr. Rj Last CALC9.6 mg/dLNoUniversity Hospitals Parma Medical CenterComment on above: Performed By: #### LIPID, LIVER #### [facility] [address] [place] [address] Dr. Rj Wallace PROFILEon [id number] [Mass/Vol]3.7 g/dLNormal3.4-5.0 The [facility] Medical CenterComment on above:Performed By: #### LIPID, LIVER #### [facility] [address] [place] [address] Dr. Rj MillerAlbumin/Globulin [Mass ratio]1.0 {ratio}NormalThe [facility] Medical CenterComment on above:Performed By: #### LIPID, LIVER #### [facility] [address] [place] [address] Dr. Rj Back [Catalytic activity/Vol]210 U/LCritically zdav33-554Ufr [facility] CenterComment on above:Performed By: #### LIPID, LIVER #### [facility] [address] [address] [address] Rj Umaña [Catalytic activity/Vol]50 U/RQldeck47-14Dsz [facility] CenterComment on above:Performed By: #### LIPID, LIVER #### [facility] [address] [address] [address] Rj MillerAST [Catalytic activity/Vol]42 U/LCritically zrjd09-25Ini [facility] CenterComment on above:Performed By: #### LIPID, LIVER #### [facility] [address] [place] [address] Dr. Rj Garcia, CONJUGATED0.1 mg/dLNormal0.0-0.2The [facility] Comment on above:Performed By: #### LIPID, LIVER #### [facility] [address] [place] [address] Dr. Rj Carrionirubin [Mass/Vol]0.3 mg/dLNormal0.2-1.0The [facility] Comment on above:Performed By: #### LIPID, LIVER #### [facility] [address] [place] [address] Dr. Rj MillerGlobulin (S) [Mass/Vol]3.7 g/dLNormalThe [facility] Medical CenterComment on above:Performed By: #### LIPID, LIVER #### [facility] [address] [place] [address] Dr. Rj MillerProtein [Mass/Vol]7.4 g/dLNormal6.4-8.2The [facility] Comment on above:Performed By: #### LIPID, LIVER #### [facility] [address] [place] [address] Dr. Rj MillerCwems15-oordjbnuuyfznk D3 [Mass/Vol]on 77-28-1117Izzvfjv D 25 OH40.2 ng/mL30 - 100 ng/mLCleveland ClinicMRI LSPINE WO CONon [id number] LSPINE WO CONEXAMINATION: MRI LSPINE WO CON [...] complex. No central or foraminal stenosis IMPRESSION: Upbt-kd-oaootqfy degenerative changes resulting in mild left L2-L3 and mild right L3-L4 foraminal stenosis Electronically authenticated by: KALEIGH CANTOR Date: 2022-11-24 11:[address] [place], [place] [address]XR LSPINE MIN 4 VIEWSon 02-03-3203TQ LSPINE MIN 4 VIEWS EXAMINATION: XR LSPINE [...] Electronically authenticated by: JENNY TAPIA Date: 2022-11-07 11:13Blanch[facility] Valley Health SystemDXA-AXIAL SKELETONon 76-13-1427UHFRBG T-SCORE-2.5Cleveland ClinicCBC AUTO DIFFon [id number] #0.0 103/ulNormal0.0-0.1OhiohealthComment on above:Performed By: #### CBC #### [facility] [address] [address] [address] Rj MillerBasophils/100 WBC (Bld)0.5 %Normal0.2-2.0[facility] Comment on above:Performed By: #### CBC #### [facility] [address] [address] [address] Rj Maki #0.2 103/ulNormal0.0-0.7The [facility] Twin City Medical CenterComment on above: Performed By: #### CBC #### [facility] [address] [address] [address] Rj Barriososinophils/100 WBC (Bld)1.8 %Normal0.9-7.0[facility] Comment on above:Performed By: #### CBC #### [facility] [address] [address] [address] Rj Barriosrythrocyte distribution width (RBC) [Ratio]13.6 %Fskvip58.0-15.0 OhiohealthComment on above:Performed By: #### CBC #### [facility] [address] [address] [address] Rj MillerHematocrit (Bld) [Volume fraction]41.3 %Critically low42.0-54.0 OhiohealthComment on above:Performed By: #### CBC #### [facility] [address] [address] [address] Rj MillerHemoglobin (Bld) [Mass/Vol]14.1 g/oJZnodro80.0-18.0The [facility] City Medical CenterComment on above:Performed By: #### CBC #### [facility] [address] [place] [address] Dr. Rj Burks #0.02 10e3/ulNormal0.00-0.03The [facility] Medical CenterComment on above:Performed By: #### CBC #### [facility] [address] [place] [address] Dr. Rj Burks %0.2 %Normal0.0-0.5The [facility] Medical CenterComment on above: Performed By: #### CBC #### [facility] [address] [place] [address] Dr. Rj Jaffe #2.4 103/ulNormal1.2-3.8The [facility] Medical CenterComment on above:Performed By: #### CBC #### [facility] [address] [place] [address] Dr. Rj Khanhocytes/100 WBC (Bld)29.5 %Niqdeo88.5-60.0The [facility] CenterComment on above:Performed By: #### CBC #### [facility] [address] [place] [address] Dr. Rj Nugent DIFF REQNONormalThe [facility] CenterComment on above: Performed By: #### CBC #### [facility] [address] [place] [address] Dr. Rj Mahmood (RBC) [Entitic mass]31.1 wvDnfasc27.9-34.0The [facility] CenterComment on above:Performed By: #### CBC #### [facility] [address] [place] [address] Dr. Rj Mahmood (RBC) [Mass/Vol]34.1 g/dTZpvlff12.9-35.2The [facility] CenterComment on above:Performed By: #### CBC #### [facility] [address] [place] [address] Dr. Rj Mahmood (RBC) [Entitic vol]91.0 cRAxuywt89.0-94.0The [facility] CenterComment on above:Performed By: #### CBC #### [facility] [address] [place] [address] Dr. Rj Bales #0.7 103/ulNormal0.3-0.8The Mountainside HospitalComment on above:Performed By: #### CBC #### [facility] [address] [place] [address] Dr. Rj Bermanocytes/100 WBC (Bld)8.3 %Normal1.7-12.0The [facility] Comment on above:Performed By: #### CBC #### [facility] [address] [place] [address] Dr. Rj Greene #4.9 103/ulNormal1.4-6.5The [facility] CenterComment on above:Performed By: #### CBC #### [facility] [address] [place] [address] Dr. Rj Teeutrophils/100 WBC (Bld)59.7 %Couwzm00.0-75.0The [facility] CenterComment on above:Performed By: #### CBC #### [facility] [address] [place] [address] Dr. Rj Avery mean volume (Bld) [Entitic vol]8.8 fLCritically low 9.5-13.5The [facility] CenterComment on above:Performed By: #### CBC #### [facility] [address] [place] [address] Dr. Rj SolisT288 103/xbGztgei801-974Vqm [facility] CenterComment on above: Performed By: #### CBC #### [facility] [address] [place] [address] Dr. Rj GallegosC4.54 106/ulCritically low4.70-6.10The [facility] CenterComment on above:Performed By: #### CBC #### [facility] [address] [place] [address] Dr. Rj MunozBC8.2 103/ulNormal4.0-11.0The [facility] CenterComment on above: Performed By: #### CBC #### [facility] [address] [place] [address] Dr. Rj MillerCovid-19 PCR (CVDTB)on 38-89-2431NRLJ-CoV-2 (COVID-19) RNA BERNARDO+probe Ql (Unsp spec)Not detectedNormalNOT DETECTEDThe [facility] Comment on above:Result Comment: When diagnostic testing [...] for this test is supported by the [place] of Health and Human Service's declaration that [...] longer be used).Performed By: #### CVDTBH #### [facility] [address] [place] [address] Dr. Rj MillerLIPASEon 17-91-1152Unwsac [Catalytic activity/Vol]17.0 U/L Critically low73.0-393.0The [facility] CenterComment on above:Performed By: #### CMP, LIPA, HSTROPN #### [facility] [address] [place] [address] Dr. Rj MillerPROF 14(COMP METB)on 65-83-5058Faoqmst [Mass/Vol]3.8 g/dLNormal 3.4-5.0The [facility] CenterComment on above:Performed By: #### CMP, LIPA, HSTROPN #### [facility] [address] [place] [address] Dr. Rj MillerAlbumin/Globulin [Mass ratio]1.0 {ratio}NormalThe [facility] CenterComment on above:Performed By: #### CMP, LIPA, HSTROPN #### [facility] [address] [address] [address] Rj CabreraP [Catalytic activity/Vol]180 U/LCritically xlqm57-879Sab [facility] CenterComment on above:Performed By: #### CMP, LIPA, HSTROPN #### [facility] [address] [place] [address] Dr. Rj CabreraT [Catalytic activity/Vol]38 U/LVqbpoe63-72Zic [facility] CenterComment on above:Performed By: #### CMP, LIPA, HSTROPN #### [facility] [address] [place] [address] Dr. Rj MillerAnion gap [Moles/Vol]8.7 mmol/LNormalThe [facility] CenterComment on above:Performed By: #### CMP, LIPA, HSTROPN #### [facility] [address] [place] [address] Dr. Rj MillerAST [Catalytic activity/Vol]28 U/VIpyror37-92Tui [facility] CenterComment on above:Performed By: #### CMP, LIPA, HSTROPN #### [facility] [address] [place] [address] Dr. Rj MillerBilirubin [Mass/Vol]0.4 mg/dLNormal0.2-1.0The [facility] Comment on above:Performed By: #### CMP, LIPA, HSTROPN #### [facility] [address] [place] [address] Dr. Rj MillerCalcium [Mass/Vol]8.9 mg/dLNormal8.5-10.1The [facility] Comment on above:Performed By: #### CMP, LIPA, HSTROPN #### [facility] [address] [place] [address] Dr. Rj MillerChloride [Moles/Vol]103 mmol/JDdcail83-351Ykt [facility] Comment on above:Performed By: #### CMP, LIPA, HSTROPN #### [facility] [address] [place] [address] Dr. Rj MillerCO2 [Moles/Vol]26.0 mmol/NIcijpn47.0-32.0The [facility] Comment on above:Performed By: #### CMP, LIPA, HSTROPN #### [facility] [address] [place] [address] Dr. Rj MillerCreatinine [Mass/Vol]0.88 mg/dLNormal0.70-1.30The [facility] CenterComment on above:Performed By: #### CMP, LIPA, HSTROPN #### [facility] [address] [place] [address] Dr. Rj BarriosGFR-AF MOLDOVAN>60Normal>=60The [facility] CenterComment on above:Performed By: #### CMP, LIPA, HSTROPN #### [facility] [address] [place] [address] Dr. Rj BarriosGFR-NON AF MOLDOVAN>60Normal>=60The [facility] CenterComment on above:Performed By: #### CMP, LIPA, HSTROPN #### [facility] [address] [place] [address] Dr. Rj MillerGlobulin (S) [Mass/Vol]3.8 g/dLNormalThe [facility] CenterComment on above:Performed By: #### CMP, LIPA, HSTROPN #### [facility] [address] [place] [address] Dr. Rj MillerGlucose [Mass/Vol]116 mg/dLCritically ixjv98-081Osy [facility] CenterComment on above:Performed By: #### CMP, LIPA, HSTROPN #### [facility] [address] [place] [address] Dr. Rj MillerPotassium [Moles/Vol]3.7 mmol/LNormal3.5-5.1The [facility] Comment on above:Performed By: #### CMP, LIPA, HSTROPN #### [facility] [address] [address] [address] Rj MillerProtein [Mass/Vol]7.6 g/dLNormal6.4-8.2The [facility] Comment on above:Performed By: #### CMP, LIPA, HSTROPN #### [facility] [address] [place] [address] Dr. Rj MillerSodium [Moles/Vol]134 mmol/LCritically uxd345-547Vtv [facility] CenterComment on above:Performed By: #### CMP, LIPA, HSTROPN #### [facility] [address] [place] [address] Dr. Rj MillerUrea nitrogen [Mass/Vol]13.0 mg/dLNormal7.0-18.0The [facility] CenterComment on above:Performed By: #### CMP, LIPA, HSTROPN #### [facility] [address] [place] [address] Dr. Rj Schulz nitrogen/Creatinine [Mass ratio]14.8 mg/mgNormalThe [facility] CenterComment on above:Performed By: #### CMP, LIPA, HSTROPN #### [facility] [address] [place] [address] Dr. Rj Low, HIGH SENSITIVITYon 74-77-4535EHMSQS98.1 pg/mLNormal 4.0-76.1The [facility] CenterComment on above:Result Comment: CUT-OFF POINTS HAVE BEEN ESTABLISHED BASED ON THE FOURTH UNIVERSAL DEFINITIONS OF MYOCARDIAL INFARCTION. THE UPPER REFERENCE LIMIT (URL) OF TROPONIN, DEFINED THE 99TH PERCENTILE OF cTnI DISTRIBUTION IN A REFERENCE POPULATION, HAS BEEN CONFIRMED THE DECISION THRESHOLD FOR [place] DIAGNOSIS.Performed By: #### CMP, LIPA, HSTROPN #### [facility] [address] [place] [address] Dr. Rj MillerXR CSPINE 2_3 VIEWSon 80-74-8776QD CSPINE 2_3 VIEWSEXAMINATION: XR CSPINE 2_3 VIEWS [...] Electronically authenticated by: JENNY TAPIA Date: 2022-09-24 07:[address] [place] [address] Metabolic Panelon 21-46-0003Lsgngys [Mass/Vol]8.7 mg/dL Normal8.2-10.2FThe Christ HospitalComment on above:Performed By: #### BMP #### [place] [address] USAChloride [Moles/Vol]107 mmol/RJnheru41-669CitotwztzWestern Reserve HospitalComment on above:Performed By: #### BMP #### [place] [address] USACO2 [Moles/Vol]23.3 mmol/RIcomqu08.0-30.0[facility] HospitalComment on above:Performed By: #### BMP #### [place] [address] USACreatinine [Mass/Vol]0.80 mg/dLNormal0.64-1.27[facility] HospitalComment on above:Performed By: #### BMP #### [place] [address] USACreatinine Clr Calc Caxtvnqw464.34NoWadsworth-Rittman HospitalComment on above:Result Comment: PERFORMED BY: [place] [address] PATHOLOGIST PHOTOGRAPHIC ENGINEER MARGO MINOR M.D.Performed By: #### BMP #### [place] [address] USAEstimated GFR ( Emilie> 60NoWadsworth-Rittman HospitalComment on above:Result Comment: GFR estimated reference range: According to KDOQI guidelines, <60 ml/min/1.73m2 is sufficient to diagnose a patient with chronic kidney disease.Performed By: #### BMP #### [place] [address] USAEstimated GFR (Non- Am> 60NormalWestern Reserve HospitalComment on above:Performed By: #### BMP #### [place] [address] USAGlucose [Mass/Vol]101 mg/uWIduh52-980YphjbvsvoWestern Reserve HospitalComment on above:Result Comment: Random Glucose Reference Range is dependent on time and content of last meal. Glucose of more than 200 mg/dL in a nonstressed, ambulatory subject supports the diagnosis of Diabetes Mellitus. ADA recommended reference rangePerformed By: #### BMP #### [place] [address] USAPotassium [Moles/Vol]4.3 mmol/LNormal3.5-5.1FThe Christ HospitalComment on above:Performed By: #### BMP #### [place] [address] USASodium [Moles/Vol]138 mmol/TSyeyvc070-961ZododrusnWestern Reserve HospitalComment on above:Performed By: #### BMP #### [place] [address] USAUrea nitrogen [Mass/Vol]13 mg/dLNormal9-23Western [facility] HospitalComment on above:Performed By: #### BMP #### [place] [address] USACalculi, Urinaryon 04-35-7490Fs Oxalate Gssrjfqnv72 % Normal.[facility] Reserve HospitalComment on above:Performed By: #### CALCULI #### [facility] ,Ca Oxalate Vuzmuvazrqv56 %Normal.[facility] Reserve HospitalComment on above:Performed By: #### CALCULI #### [facility] ,Color (U)TanNormal.[facility] HospitalComment on above:Performed By: #### CALCULI #### [facility] ,Comment:Normal.[facility] Reserve HospitalComment on above:Result Comment: Physician questions regarding Calculi Analysis contact [facility] at: [phone].Performed By: #### CALCULI #### [facility] ,CompositionNormal.[facility] HospitalComment on above:Result Comment: Percentage (Represents the % composition)Performed By: #### CALCULI #### [facility] ,Disclaimer:Normal.[facility] Reserve HospitalComjohn d. dingell [facility] on above:Result Comment: This test was developed and its performance characteristics determined by [facility]. It has not been cleared or approved by the Food and Drug Administration. Performed at: [facility] [address] [place] [address] Dr Castillo, [place], [place] [id number] [employer] Specialist: Anthony Grey MD, Phone: [phone] By: #### CALCULI #### [facility] ,Kujvwluflxkmhq06 %Normal.[facility] HospitalComment on above: Performed By: #### CALCULI #### [facility] ,NoteNormal.Western Reserve HospitalComjohn d. dingell veterans affairs medical center on above:Result Comment: Calculi report will follow via computer, mail or rn transport delivery. PERFORMED BY: [facility] [address] [place] [address] PATHOLOGIST PHOTOGRAPHIC ENGINEER MAROG MINOR M.D.Performed By: #### CALCULI #### [facility] ,PhotoNormal.[facility] HospitalComment on above:Result Comment: Photograph will follow under a separate coverPerformed By: #### CALCULI #### [facility] ,Ohqd3b8Naulal.[facility] Reserve HospitalComjohn d. dingell veterans affairs [facility] center on above:Result Comment: Multiple pieces received. Dimensions of the largest piece reported.Performed By: #### CALCULI #### [facility] ,SourceUreterNormal.[facility] HospitalComment on above:Performed By: #### CALCULI #### [facility] ,Lhvgvq088Vnfxmr.[facility] HospitalComment on above:Performed By: #### CALCULI #### [facility] ,ECG 12 lead ECGon 28-69-6760HML 12 lead ECGUNIVERSITY [facility] [place] [address] Electrocardiograph Report Signed Patient: Jam Toscano MR#: [id number] : 1965 Acct:[id number] Age/Sex: 55 / M ADM Date: 02/27/21 Loc: [place] Room: Type: [facility] Attending Dr: Rigo Gonzalez Jr, [...] Ruby DO 02/27/21 1110 Signed By: 02/27/21 1225NoWadsworth-Rittman HospitalLon 02-27-2021 Specimen: [id number] Received: 02/27/21094 Status: EMELI Flores Num: [id number] Spec Type: Surgical Subm Dr: Rigo Gonzalez Jr, MD, FACS Tissues: A Urinary Calculus (URETHRAL STONE) Procedures: Level 1 Gross Patient Age/Sex Location Account Attending Physician Jam Toscano 55/M [place] [id number] Rigo Gonzalez Jr, MD, FACS SPEC NUM: [id number] RECD: 02/27/21540 STATUS: EMELI FLORES NUM: [id number] RADHA: 02/27/21- [facility] DR: Rigo Gonzalez Jr, MD, FACS ENTERED: 02/27/21-[address] [facility] [address]: LATOYA TYPE: Surgical DEPT: S ORDERED: [...] Microscopic Description Gross examination only CPT Codes 39460 Specimen: [id number] Received: 02/27/21 Status: EMELI Flores Num: [id number] Spec Type: Surgical Subm Dr: Rigo Gonzalez Jr, MD, FACS Tissues: A Urinary Calculus (URETHRAL STONE) Procedures: Level 1 Gross Patient: Jam Toscano [id number] (Continued) Signed (signature on file) Silvestre Poon MD 02/28/21 1428 [facility] HospitalC[facility]19 [facility] 01-82-2713BSCK-CoV-2 (COVID-19) RNA BERNARDO+probe Ql (Unsp spec)NegativeNormalNegativeWestern Reserve HospitalComment on above:Order Comment: Healthcare Worker?: NResult Comment: Reference: Negative Testing for SARS-CoV-2 by RT-PCR This test was developed and its performance characteristics determined by [employer] (BD) and validated at the [facility]. This test has not been FDA [...] is terminated or revoked sooner. PERFORMED BY: [place] [address] PATHOLOGIST PHOTOGRAPHIC ENGINEER MARGO MINOR M.D.Performed By: #### COVID-19 [facility] #### [facility] [address] [place] [address] USACOVID-19 Positive/Negativeon 94-47-0757IZOVY-19 Positive/NegativeNegativeNegativeWilson Memorial Hospital CtrComment on above: Reference: NegativeTesting for SARS-CoV-2 by RT-PCRThis test was developed and its performance characteristics determined by [employer] (BD) and validated at the [facility]. This test has not been FDA cleared or approved. This test has been authorized by FDA under an Emergency Use Authorization (EUA). This test has been validated in accordance with the [facility]'s Guidance Document (Policy for Diagnostics Testing in [...] authorization is terminated or revoked sooner. Otheron 72-19-6076Knpkeubqlvy 2019 PCR Inter/[facility] CtrXR ANKLE GENERAL 3V AP/LAT/OBL LTon 25-62-0540Sjrnefvpp ClinicDXA-AXIAL SKELETONon 92-17-8499Arslzqrzx Clinic Vital Signs Date TimeVital SignValuePerforming LuiryacuiOcgnrjww02-03-2019 08:17-0400Body mass index (BMI) [Ratio]26.81 kg/o8QiwbrttDarrian Dubon MD Work Phone: [phone]07-22-2025 08:17-0400Body fziftd28.3 kgDarrian Dubon MD Work Phone: [phone]07-22-2025 08:17-0400Diastolic blood bxfiglbm38 mm[Hg]Darrian Dubon MD Work Phone: [phone]07-22-2025 08:17-0400Heart rate66 /min Darrian Dubon MD Work Phone: [phone]07-22-2025 08:17-0400Systolic blood hfryfhdh747 mm[Hg]Darrian Dubon MD Work Phone: [phone]04-01-2025 07:10-0400Body mass index (BMI) [Ratio]28.12 kg/y5YolrlpdDarrian Dubon MD Work Phone: [phone]04-01-2025 07:10-0400Body sibxfw70 kg Darrian Dubon MD Work Phone: [phone]04-01-2025 07:10-0400Diastolic blood pyrbwpxe01 mm[Hg]Darrian Dubon MD Work Phone: [phone]04-01-2025 07:10-0400Heart rate66 /min Darrian Dubon MD Work Phone: [phone]04-01-2025 07:10-0400Systolic blood mm[Hg]Darrian Dubon MD Work Phone: [phone]11-20-2024 07:15-0500Body mass index (BMI) [Ratio]27.66 kg/y0NgndtucDarrian Dubon MD Work Phone: [phone]11-20-2024 07:15-0500Body hyqthk54.7 kgDarrian Dubon MD Work Phone: [phone]11-20-2024 07:15-0500Diastolic blood mm[Hg]Darrian Dubon MD Work Phone: [phone]11-20-2024 07:15-0500Heart rate66 /min Darrian Dubon MD Work Phone: [phone]11-20-2024 07:15-0500Systolic blood itcidhwu749 mm[Hg]Darrian Dubon MD Work Phone: [phone]06-24-2024 10:05-0400Diastolic blood vyjpkpam29 mm[Hg]Rheu Maria De Jesus Work Phone: [phone]06-24-2024 10:05-0400Heart rate78 /min Rheu Maria De Jesus Work Phone: [phone]06-24-2024 10:05-0400Systolic blood ioxhpivp135 mm[Hg]Rheu Maria De Jesus Work Phone: [phone]06-24-2024 09:08-0400Body mass index (BMI) [Ratio]27.16 kg/m2Nidia Ascencio APRN.CNP Work Phone: [phone]06-24-2024 09:08-0400Body temperature 98.4 [degF]Nidia Ascencio APRN.WEATHER REPORTER Work Phone: [phone]06-24-2024 09:08-0400Body zemryc43.3 kgNidia Silva MIR.WEATHER REPORTER Work Phone: [phone]06-24-2024 09:08-0400Diastolic blood bzhrssxy21 mm[Hg]Nidia Ascencio APRN.WEATHER REPORTER Work Phone: [phone]06-24-2024 09:08-0400Heart rate89 /min Nidia Ascencio APRN.WEATHER REPORTER Work Phone: [phone]06-24-2024 09:08-8173ElY2% (BldA) [Mass fraction]97 %Nidia Ascencio APRN.WEATHER REPORTER Work Phone: [phone]06-24-2024 09:08-0400Systolic blood mm[Hg]Nidia Ascencio APRN.WEATHER REPORTER Work Phone: [phone]04-29-2024 09:17-0400Body mass index (BMI) [Ratio]26.66 kg/m2Nidia Silva MCCANNN.WEATHER REPORTER Work Phone: [phone]04-29-2024 09:17-0400Body yxhuen39.9 kgNidia Gavirialainey MIR.WEATHER REPORTER Work Phone: [phone]04-29-2024 09:17-0400Diastolic blood mm[Hg]Nidia Ascencio APRN.WEATHER REPORTER Work Phone: [phone]04-29-2024 09:17-0400Heart rate97 /min Nidia Ascencio APRN.WEATHER REPORTER Work Phone: [phone]04-29-2024 09:17-9655BaR3% (BldA) [Mass fraction]97 %Nidia Ascencio APRN.WEATHER REPORTER Work Phone: [phone]04-29-2024 09:17-0400Systolic blood llortzeb980 mm[Hg]Nidia Ascencio APRN.WEATHER REPORTER Work Phone: [phone] Encounters Encounter DateEncounter [facility] ProviderFacilityStart: 06-21-2025 End: 00-68-3616nvnpojzxrgExdcemks Talal SarminiFacility:[facility]elia DHStart: 06-07-2025 End: 69-54-7080iswidjyxeeFxeyskqc Talal SarminiFacility:[facility] DHStart: 06-06-2025 End: 44-41-9084Khyglr outpatient visit 25 minutesDarrian Dubon MD Work [...] health promotion and disease preventionStart: 06-06-2025 End: 57-20-4302twocryxwbgCVGSAOK M HOYFacility:[facility] Hospitaltart: 06-06-2025 End: 82-69-5069Mgdfpbdnoa hospital visit by Ami Cedeno [facility] Maria De Jesus RadiologyComment on above:Seropositive rheumatoid arthritis (HCC) [M05.9]Start: 05-31-2025 End: 26-43-7067nundxyftzcZiwpakah Talal SarminiFacility:[facility] DHStart: 05-23-2025 End: 91-20-2433ulvgjseulcPJYAJUF M HOYFacility:[facility] Hospitaltart: 05-22-2025 End: 11-31-4041xihzlpfiifKmknnbrh Talal SarminiFacility:[facility] DHStart: 05-11-2025 End: 49-91-4160tpqsckimhwVqlccgyx Talal SarminiFacility:[facility]MCStart: 05-03-2025 End: 66-80-2542Xklvbk flowsheetJr. Bradly Veliz DO Work Phone: [facility] ORTHOStart: 05-03-2025 End: 49-57-6231Zjmrys flowsheetJclyde Veliz DO Work Phone: [facility] ORTHOStart: 05-03-2025 End: 48-10-6621Tsxbue outpatient visit 15 minutesJr. Bradly Janene Keren DO Work Phone: noms [facility] ORTHOComment on above:Pain and swelling of right knee (Primary Dx); History of total left knee replacement; History of total right knee replacement; Pain and swelling of left kneeStart: 05-03-2025 End: 84-45-4151zaqtqvcuzjGV., BRADLY Badillo AvailableStart: 03-29-2025 End: 86-13-1787Wmxpql flowsheetJr. Bradly Watters Gonzálezseb DO Work Phone: noms [facility] ORTHOStart: 03-29-2025 End: 37-98-9679Tbnhnz flowsheetJr. Bradly Watters Keren DO Work Phone: noms [facility] ORTHOStart: 03-29-2025 End: 34-39-1281Iuwcag outpatient visit 15 minutesJr. Bradly Veliz Work Phone: noms [facility] ORTHOComment on above:Pain of right hip (Primary Dx); Primary osteoarthritis of right hip; Arthritis of knee, left; History of total hip replacement, rightStart: 03-29-2025 End: 78-77-4686mifooeayhgSP.BRADLY AvailableStart: 02-14-2025 End: 07-80-5254hiudbciblgLHVEGLT M HOYFacility:[facility] Hospitaltart: 02-14-2025 End: 80-90-2985Fualky outpatient visit 25 minutesDarrian Dubon MD Work Phone: RheumatologyComment on above:Seropositive rheumatoid arthritis (HCC) (Primary Dx); Rheumatoid arthritis involving multiple sites with positive rheumatoid factor (HCC); On sulfasalazine therapy; Ulcerative pancolitis (HCC); Other osteoporosis without current pathological fracture; History of bisphosphonate therapy; Encounter to discuss test results; Encounter for medication review and counseling; Counseling on health promotion and disease preventionStart: 12-14-2024 End: 79-28-0020fdpywewobqWnxnfwfl Te SarminiFacility:[facility]MCStart: 11-21-2024 End: 49-40-9521Qzkozbasg encounterDarrian Dubon MD Work Phone: RheumatologyComment on above:Patient UpdateStart: 11-21-2024 End: 95-59-2527mgsbxbvrfnQggecgk R WATERSFacility:FTMCStart: 11-21-2024 End: 81-10-4452emgjdiwkabVeypnqa R WATERSFacility:EU BellevueStart: 10-05-2024 End: 91-16-4457afgwrfxiccBKDCIXR AL-ASHKARFacility:[facility] Start: 10-05-2024 End: 53-56-6135Fqlnde outpatient visit 25 minutesFeaida Dubon MD Work Phone: RheumatologyComment on above:Seropositive rheumatoid arthritis (HCC) (Primary Dx); Rheumatoid arthritis involving multiple sites with positive rheumatoid factor (HCC); On sulfasalazine therapy; Ulcerative pancolitis (HCC); Other osteoporosis without current pathological fracture; History of bisphosphonate therapy; Counseling on health promotion and disease preventionStart: 05-09-2024 End: 17-16-3946qsswjsqxusTteo 2 Maria De Jesus Work Phone: InfusionComment on above:Other osteoporosis without current pathological fracture (Primary Dx)Start: 05-09-2024 End: 59-48-1095Lzccjxq encounter Amaya Ascencio APRN.WEATHER REPORTER Work Phone: RheumatologyComment on above: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); Vitamin D deficiency; Other osteoporosis without current pathological fractureStart: 05-03-2024 Telephone encounterMaria G Qiu MD Work Phone: RheumatologyComment on above:Results (Labs)Start: 69-15-1745Rczdfgfzc encounterNidia Ascencio APRN.CNP Work Phone: RheumatologyComment on above:Patient UpdateStart: 03-14-2024 End: 06-12-3110Evteultpqh hospital visit by physicianXr [facility] Comment on above:Rheumatoid arthritis involving multiple sites with positive rheumatoid factor (HCC) [M05.79]Start: 03-14-2024 End: 93-02-5065Iabtfdt encounter Amaya Ascencio APRN.CNP Work Phone: eumatologyComment on above: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); Vitamin D deficiency; Other osteoporosis without current pathological fracture; Encounter for medication review and counselingStart: 33-83-2499Etncjsrsi encounterNidia Ascencio APRN.CNP Work Phone: eumatologyStart: 89-71-5217Hrcehnnto encounterNidia Ascencio APRN.CNP Work Phone: eumatologyComment on above:Patient UpdateStart: 05-04-2023 End: 84-90-4273gdgdkxticvCcn M Emerick APRN.CNP Work Phone: RheumatologyComment on above: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); Encounter to discuss test results; Counseling on health promotion and disease prevention; Ulcerative pancolitis (HCC); Vitamin D deficiency; On sulfasalazine therapy; Encounter for medication review and counseling; Other osteoporosis without current pathological fracture; Elevated serum immunoglobulin free light chain levelStart: 05-04-2023 End: 96-69-9189Uddwifmrobuw consultation with Marcos Ascencio APRN.WEATHER REPORTER Work Phone: [facility] [place] [facility]: 03-02-2023 End: 93-08-6181fjchwkjexcUslPuneet Ascencio APRN.WEATHER REPORTER Work Phone: RheumatologyComment on above: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); Encounter to discuss test results; Counseling on health promotion and disease prevention; Ulcerative pancolitis (HCC); Other osteoporosis without current pathological fractureStart: 03-02-2023 End: 67-45-3984Cjioeknxpisi consultation with patientAmy M Silva COVERAGE SPECIALIST.WEATHER REPORTER Work Phone: [facility] [place] [facility]tart: 02-11-2023 End: 10-69-5806xyakskhkwaVW DOUGLAS HOY .Facility:Z3Czraz: 64-65-6785Dbxlnoork encounterNidia Ascencio APRN.WEATHER REPORTER Work Phone: RheumatologyComment on above:Outside Lab Results (Vit D )Start: 12-29-2022 End: 70-52-0261dvaflgonhgYen M Emerick APRN.WEATHER REPORTER Work Phone: eumatologyComment on above: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); Vitamin D deficiency; Encounter to discuss test results; Encounter for medication review and counseling; Counseling on health promotion and disease prevention; Other osteoporosis without current pathological fractureStart: 12-29-2022 End: 23-54-6137Wrvtlklvuxnf consultation with Marcos Ascencio APRN.WEATHER REPORTER Work Phone: [facility] [place] [facility]: 11-24-2022 End: 17-66-9059hqhalvfqeqOW JOSE L LACKEY .Facility:P5Kqmbj: 11-06-2022 End: 39-69-1858oziarqvlrkPH JOSE L AHMETY .Facility:R6Evbom: 09-24-2022 End: 36-66-4636qkaoiwwqiwVC JOSE L HOY .Facility:Z4Cyqvo: 09-23-2022 End: 59-66-7435Noajwnudml hospital visit by Ami Cedeno [facility] Maria De Jesus RadiologyComment on above:Other osteoporosis without current pathological fracture [M81.8]Start: 40-41-8137Uknasizvt encounterDarrian Dubon MD Work Phone: RheumatologyComment on above:ResultsStart: 02-25-2021 End: 79-09-2220Qnvhhjz encounter Carlyn Gonzalez-Pre-Surgical Testing Start: 02-20-2021 End: 68-27-8248Vhkwnofnec hospital visit by physicianJob [facility] Comment on above:Seropositive rheumatoid arthritis (HCC) [M05.9]Start: 08-22-2020 End: 94-91-3794Nfaphdrlro hospital visit by Ami Cedeno [facility] Maria De Jesus RadiologyComment on above:Rheumatoid arthritis involving multiple sites with positive rheumatoid factor ([facility]) [M05.79] Procedures DateProcedureProcedure DetailPerforming ClinicianStart: 48-59-4686Rlgpustztf examination knee 1/2 viewsJr. Bradly Veliz DO Work Phone: Start: 60-09-3343Egactpmgra examination knee 1/2 views JrBrittney Veliz DO Work Phone: Start: 20-77-3170Jkugn hip unilateral with pelvis 2-3 viewsJr. Bradly Veliz DO Work Phone: Start: 80-61-8584Nhptd hand minimum 3 viewsNidia Ascencio COVERAGE SPECIALIST.WEATHER REPORTER Work Phone: Start: 80-53-7691EFGDOGX D 25 HYDROXYAmy Griselda Ascencio COVERAGE SPECIALIST.WEATHER REPORTER Work Phone: Start: 99-14-8508Kkb bone density study 1/> sites axial Yon Dubon MD Work Phone: Start: 61-37-3028Bfchr ankle complete minimum 3 views Darrian Dubon MD Work Phone: Start: 75-62-5576Ldr bone density study 1/> sites axial Yon Dubon MD Work Phone: Start: 26-12-6421Wphiw depression screening assessment Darrian Dubon MD Work Phone: Plan of Treatment DateCare ActivityDetailAuthorStart: 28-27-8662Srsbtgai ScreeningDiabetes ScreeningGoodman ClinicStart: 05-02-2026 End: 22-05-6733Gehuwhf encounter qfexqhofv80/17/2026 10:00 AM EDT Office Visit [facility] [address] [place] [phone] Jr. Bradly Veliz DO [address] [place] [address] [facility]: 03-28-2026 End: 96-54-0421Kbjcgso encounter hcmcnwuud59/13/2026 10:00 AM EDT Office Visit [facility] [address] [place] [phone] Jr. Bradly Veilz, DO [address] [place] [address] [facility]OStart: 10-31-2025 End: 70-68-2115Vsunkiy encounter qnzryddim12/16/2025 10:00 AM EST Office Visit Rheumatology [address] [place] [address] Darrian Dubon MD [address] [place] [address] Please also offer another apt later in 2024 or early 2025 (please use 30 min slot) for RA/OPRheumatologyComment on above:Please also offer another apt later in 2024 or early 2025 (please use 30 min slot) for RA/OP Start: 36-48-6642Yeuftnian vaccinationNOMS HealthcareStart: 06-06-2025 End: 24-02-1288Hhdbppd encounter procedureRadiologyComment on above:Seropositive rheumatoid arthritis (HCC) [M05.9]Return for May 2025 for RA and OP and review of DXA.Start: 05-23-2025 End: 03-74-4369yfplaovkzh98/08/2025 8:00 AM EDT Results Only [facility] [address] [place] [address] labsNortPontiac General Hospital LaboratoryComment on above: labsStart: 05-16-2025 End: 767118-hgqsalqayzazqk D3 [Mass/volume] in Serum or PlasmaVITAMIN D 25 HYDROXY Lab Routine Seropositive rheumatoid arthritis (HCC) Ulcerative pancolitis (HCC) Other osteoporosis without current pathological fracture History of bisphosphonate therapy Expected: 05/16/2025, Expires: 08/15/2025 [facility]Comment [facility]:Expected: 05/16/2025, Expires: 08/15/2025Start: 05-16-2025 End: 08-15-2025 reactive protein [Mass/volume] in Serum or PlasmaC-REACTIVE PROTEIN Lab Routine Seropositive rheumatoid arthritis (HCC) Ulcerative pancolitis (HCC) Expected: 05/16/2025, Expires: [facility]25[facility] Comment on above:Expected: 05/16/2025, Expires: 08/15/2025Start: 05-16-2025 End: 59-79-3635RCQ W Auto Differential panel - BloodCOMPLETE BLOOD COUNT AND DIFFERENTIAL Lab Routine Seropositive rheumatoid arthritis (HCC) Rheumatoid arthritis involving multiple sites with positive rheumatoid factor (HCC) On sulfasalazine therapy Ulcerative pancolitis (HCC) Expected: 05/16/2025, Expires: [facility]/15/[facility] Work Phone: Comment on above:Expected: 05/16/2025, Expires: 08/15/2025Start: 05-16-2025 End: 79-11-4268Jomznxhh crosslinked C-telopeptide [Mass/volume] in Serum or PlasmaC TELOPEPTIDE, BETA Lab Routine Other osteoporosis without current pathological fracture History ofbisphosphonate therapy Expected: 05/16/2025, Expires: 08/15/2025[facility] HospitalComment on above:Expected: 05/16/2025, Expires: 08/15/2025Start: 05-16-2025 End: 99-55-3006Iynry function 2000 panel - Serum or PlasmaRENAL FUNCTION PANEL Lab Routine Other osteoporosis without current pathological fracture History of bisphosphonate therapy Expected: 05/16/2025, Expires: 08/15/2025[facility] Comment on above:Expected: 05/16/2025, Expires: 08/15/2025Start: 05-03-2025 End: 88-58-1275Fhwgdjt encounter procedureNOMS SWS ORTHOComment on above:Arrived Start: 03-29-2025 End: 62-82-8816Omdjnoe encounter xzlzqgeoi05/14/2025 10:00 AM EDT Office Visit [facility] [address] [place] [phone] Jr. Bradly Veliz C, DO [address] [place] [address] ArrivedNOMS [facility] ORTHOComment on above: ArrivedStart: 02-14-2025 End: 61-55-7619Hmwtigy encounter oruqkcran52/01/2025 7:20 AM EDT Office Visit Rheumatology [address] [place] [address] Darrian Dubon MD [address] [place] [address] DubonRheumatologyComment on above:future with dr. DubonStart: 01-01-2025Medicare Advantage Annual Wellness Visit Medicare Advantage Annual Wellness VisitMercy Health Allen Hospitaltart: 10-05-2024 End: 58-37-8314Guwmmkv encounter mwhcpvylm76/20/2024 7:20 AM EST Office Visit Rheumatology [address] [place] [address] Darrian Dubon MD [address] [facility] [place] [place] [address] RARheumatologyComment on above:RAStart: 09-16-2024 End: 845502-gziucmanjotvur D3 [Mass/volume] in Serum or PlasmaVITAMIN D 25 HYDROXY Lab Routine Vitamin D deficiency Other osteoporosis without current pathological fracture Expected: 09/16/2024 (Approximate), Expires: 12/16/2024 [facility]Comment [facility] above:Expected: 09/16/2024 (Approximate), Expires: 12/16/2024Start: 09-16-2024 End: 12-16-2024 reactive protein [Mass/volume] in Serum or PlasmaC-REACTIVE PROTEIN Lab Routine Rheumatoid arthritis involving multiple sites with positive rheumatoid factor (HCC) Expected: 09/16/2024 (Approximate), Expires: 12/16/2024 [facility] Work Phone: Comment on above:Expected: 09/16/2024 (Approximate), Expires: 12/16/2024Start: 09-16-2024 End: 57-79-2219Gutifyucmtv sedimentation rateSEDIMENTATION RATE, WESTERGREN Lab Routine Rheumatoid arthritis involving multiple sites with positive rheumatoid factor (HCC) Expected: 09/16/2024 (Approximate), Expires: 12/16/2024[facility] ClinicComment on above:Expected: 09/16/2024 (Approximate), Expires: 12/16/2024 Start: 09-16-2024 End: 32-51-6388Bilpn function 2000 panel - Serum or PlasmaRENAL FUNCTION PANEL Lab Routine Rheumatoid arthritis involving multiple sites with positive rheumat oid factor (HCC) Other osteoporosis without current pathological fracture Expected: 09/16/2024 (Approximate), Expires: 12/16/2024[facility] ClinicComment on above:Expected: 09/16/2024 (Approximate), Expires: 12/16/2024Start: 61-01-4108Kfeanipik vaccinationMercy Health Allen Hospitaltart: 05-09-2024 End: 45-25-3535yrecqrzgwg98/24/2024 9:30 AM EDT Infusion [facility] Infusion [address] [facility] [address] [facility] [place] [address] Return labs in 1 month, for reclast and ov in 1-2 months after labsInfusionComment on above:Return labs in 1 month, for reclast and ov in 1-2 months after labsStart: 05-09-2024 End: 76-28-9008Mmqwpmi encounter vfpokwhti94/24/2024 9:00 AM EDT Office Visit Rheumatology [address] [facility] [place] [address] Nidia Ascencio, COVERAGE SPECIALIST.WEATHER REPORTER [address] [facility] [address] Return labs in 1 month, for reclast and ov in 1-2 months after labsRheumatologyComment on above:Return labs in 1 month, for reclast and ov in 1-2 months after labsStart: 96-02-7219UKZ Vaccine (1 - 1-dose 60+ series) RSV Vaccine (1 - 1-dose 60+ series)[facility]: 83-95-3857DOZ Vaccine (1 - Risk 60-74 years 1-dose series)RSV Vaccine (1 - Risk 60-74 years 1-dose series)[facility]: 04-13-2024 End: 905258-uajsuvdqfoyhok D3 [Mass/volume] in Serum or PlasmaVITAMIN D [...] factor (HCC) Expected: 04/13/2024 (Approximate), Expires: 07/13/2024 [facility] HospitalComment on above:Expected: 04/13/2024 (Approximate), Expires: 07/13/2024Start: 04-13-2024 End: 94-83-4048Lebrhfqtzqr sedimentation rateSEDIMENTATION RATE, WESTERGREN Lab Routine Rheumatoid arthritis involving multiple sites with positive rheumatoid factor (HCC) Expected: 04/13/2024 (Approximate), Expires: 07/13/2024[facility] ClinicComment on above:Expected: 04/13/2024 (Approximate), Expires: 07/13/2024 Start: 04-13-2024 End: 64-10-1018Sjtxy function 2000 panel - Serum or PlasmaRENAL FUNCTION PANEL Lab Routine Rheumatoid arthritis involving multiple sites with positive rheumat oid factor (HCC) Expected: 04/13/2024 (Approximate), Expires: 07/13/2024 [facility] Work Phone: Comment on above:Expected: 04/13/2024 (Approximate), Expires: 07/13/2024Start: 04-13-2024 End: 95-11-0742MB Hand - bilateral PA and Lateral and ObliqueXR HAND GENERAL 3V PA/LAT/OBL BILATERAL Radiology Routine Rheumatoid arthritis involving multiple sites with positive rheumatoid factor (HCC) Expected: 04/13/2024 (Approximate), Expires: 04/13/2025[facility] HospitalComment on above:Expected: 04/13/2024 (Approximate), Expires: 04/13/2025Start: 44-40-2928Sskhqcgqtg Health Screening Behavioral Health ScreeningMercy Health Allen Hospitaltart: 18-03-9090Nxekmrsudm AssessmentDepression AssessmentMercy Health Allen Hospitaltart: 70-93-4401RPUMQIQD SCREEN DIABETES SCREENMercy Health Allen Hospitaltart: 25-94-5905Mzdmahqxp vaccinationMercy Health Allen Hospitaltart: 07-04-2023 End: 298223-todbqvlaknmckv D3 [Mass/volume] in Serum or PlasmaVITAMIN D 25 HYDROXY Lab Routine Other osteoporosis without current pathological fracture Expected:07/04/2023 (Approximate), Expires: 09/03/2023[facility] Work Phone: Comment on above:Expected: 07/04/2023 (Approximate), Expires: 09/03/2023Start: 07-04-2023 End: 75-97-1054TPPMWFJHYE PROT UR W/INTERPMONOCLONAL PROT UR W/INTERP Lab Routine Elevated serum immunoglobulin free light chain level Expected: 07/04/2023 (Approximate), Expires: 09/03/2023[facility] Work Phone: Comment on above:Expected: 07/04/2023 (Approximate), Expires: 09/03/2023Start: 07-04-2023 End: 42-03-0004Tosou function 2000 panel - Serum or PlasmaRENAL FUNCTION PANEL Lab Routine Other osteoporosis without current pathological fracture Expected: 07/04/2023 (Approximate), Expires: 09/03/2023[facility] Work Phone: Comment on above:Expected: 07/04/2023 (Approximate), Expires: 09/03/2023Start: 12-29-2022 End: 134354-jyonjoprukhykg D3 [Mass/volume] in Serum or PlasmaVITAMIN D 25 HYDROXY Lab Routine Vitamin D deficiency Expected: 12/29/2022, Expires: 02/28/2023[facility] Work Phone: Comment on above:Expected: 12/29/2022, Expires: 02/28/2023Start: 57-44-9004SSHMCFFCIL ASSESSMENTDEPRESSION ASSESSMENTMercy Health Allen Hospitaltart: 87-09-1100Ndtdqdzbg vaccinationINFLUENZA (#1)[facility]: 81-85-3516Swntcsujv vaccinationINFLUENZA (#1)[facility]: 04-15-2021 COVID-19 VACCINE (2 - Starr risk 3-dose series)COVID-19 VACCINE (2 - Starr risk 3-dose series)[facility]: 03-27-0933ENXSM-19 VACCINE (2 - Starr risk series)COVID-19 VACCINE (2 - Starr risk series)[facility] Start: 78-38-3693FWUMECYZYECG (3 - PPSV23 if available, else PCV20)PNEUMOCOCCAL (3 - PPSV23 if available, else PCV20)[facility]: 05-03-2020 PNEUMOCOCCAL (3 - PPSV23 or PCV20)PNEUMOCOCCAL (3 - PPSV23 or PCV20)[facility]: 53-19-6437Gberigzzlvzm vaccinationPneumococcal Vaccine (3 of 3 - PPSV23 or PCV20)[facility]: 89-32-3049Ekrlmvxtqbsl Vaccine: 50+ (3 of 3 - PPSV23, PCV20 or PCV21)Pneumococcal Vaccine: 50+ (3 of 3 - PPSV23, PCV20 or PCV21)[facility]: 03-80-3864Eqblt depression screening assessment DEPRESSION SCREENINGMercy Health Allen Hospitaltart: 11-62-8552TJMPXZUG CANCER SCREENING DISCUSSIONPROSTATE CANCER SCREENING DISCUSSIONMercy Health Allen Hospitaltart: 2019 Prostate specific antigen measurementProstate Cancer Screening Discussion [facility]: 67-41-9875VXDAHTZE VACCINE (1 of 2)SHINGRIX VACCINE (1 of 2)[facility]: 53-05-5109SRPDEWEFF (FIT-DNA)COLOGUARD (FIT-DNA) [facility]: 90-74-2205YjbcxddnjbbJMICJCTRIBPRceqmnuwc ClinicStart: 71-45-7244VCXDOYUYAC CANCER SCREENINGCOLORECTAL CANCER SCREENINGBellevue Hospital Start: 29-54-5007CA COLONOGRAPHYCT COLONOGRAPHYMercy Health Allen Hospitaltart: 2009 FECAL OCCULT BLOODFECAL OCCULT BLOODMercy Health Allen Hospitaltart: 98-25-9628Vbqkrbkg specific antigen measurementProstate Cancer Screening DiscussionBellevue Hospital Start: 60-25-7793Vwtmivyqj for malignant neoplasm of colonMercy Health Allen Hospitaltart: 60-58-0655BQASIPRBQAUBDRCICMQUNBNQTAEwzkdjqsd ClinicStart: 79-74-7124Wdayq panelLipid ScreeningMercy Health Allen Hospitaltart: 13-92-7542DMRPK SCREENLIPID SCREEN [facility]: 77-21-1701FJVLVXYJ VACCINE (1 of 2)SHINGRIX VACCINE (1 of 2)[facility]: 77-08-4563Saswr microalbumin profileBellevue Hospital Start: 05-36-9818Cyhasxf ScreeningAnxiety ScreeningMercy Health Allen Hospitaltart: 42-27-2292Bdbbflklpp ScreeningDepression ScreeningMercy Health Allen Hospitaltart: 45-45-4462ISW SCREENINGHIV SCREENINGMercy Health Allen Hospitaltart: 59-69-4868UKD screeningHIV ScreeningMercy Health Allen Hospitaltart: 60-37-5417OOQ Vaccine (1 of 2 - Risk 2-dose series)MMR Vaccine (1 of 2 - Risk 2-dose series)[facility] Start: 61-65-2536Omvccsycdgnrq B Vaccine: Consider Based On Risk (1 of 4 - Increased Risk)Meningococcal B Vaccine: Consider Based On Risk (1 of 4 - Increased Risk)[facility]: 91-93-6824Idupkbnog for malignant neoplasm of colonWashington [facility] End: 81-30-6070UX DXA TRABECULAR BONE SCORE (TBS)BD DXA TRABECULAR [...] therapy 06/06/2025 8:13 AM EDTC[facility] Clinic End: 12-80-8342HTE Skeletal system.axial Views for bone densityDXA-AXIAL SKELETON Radiology Routine Seropositive rheumatoid arthritis (HCC) Ulcerative pancolitis (HCC) Other osteoporosis without current pathological fracture History of bisphosphonate therapy 1 Occurrences starting 10/05/2024 until 11/04/2025[facility] HospitalComment on above:1 Occurrences starting 10/05/2024 until 11/04/2025DXA Skeletal system.axial Views for bone densityDXA-AXIAL SKELETON Radiology Routine Seropositive rheumatoid arthritis (HCC) Ulcerative pancolitis (HCC) Other osteoporosis without current pathological fracture History of bisphosphonate therapy 06/06/2025 8:13 AM [facility] Work Phone: [facility] Immunizations Immunization DateImmunizationNotesCare NzdyzsgiQnlwited91-64-8863zrjnycyfu virus vaccine, unspecified formulationKnox [facility] Hospital07-25-2022zoster vaccine recombinantAmy Silva COVERAGE SPECIALIST.WEATHER REPORTER Work Phone: [facility] HospitalWmhdvi19-02-5639syqubt vaccine recombinant Nidia Silva COVERAGE SPECIALIST.WEATHER REPORTER Work Phone: [facility] HospitalAkxifr04-89-9937Geovoogpb, injectable, Madin [place] Canine Kidney, preservative free, quadrivalentAmy Silva COVERAGE SPECIALIST.WEATHER REPORTER Work Phone: [facility] HospitalVqqkkb54-54-7107zjcyscrmm virus vaccine, unspecified formulationAmy Silva COVERAGE SPECIALIST.WEATHER REPORTER Work Phone: [facility] HospitalPqfzsg05-73-6337Tyzfxilkw, injectable, Madin [place] Canine Kidney, quadrivalent with preservativeDarrian Dubon MD Work Phone: [facility] HospitalAvcxof83-40-4697svrxrkosw, injectable, quadrivalent, preservative freeAmy Silva COVERAGE SPECIALIST.WEATHER REPORTER Work Phone: [facility] HospitalQczhjp11-22-2678abnwebgwb, injectable, quadrivalent, preservative freeDarrian Dubon MD Work Phone: [facility] HospitalXpifph24-18-2305gnoghaaev A and hepatitis B vaccineDarrian Dubon MD Work Phone: [facility] HospitalWyzfsk11-43-2425tlvhprojiwhu conjugate vaccine, 13 valentDarrian Dubon MD Work Phone: [facility] HospitalEpjxql22-88-5730dqoybbdkw, seasonal, injectable, preservative freeDarrian Dubon MD Work Phone: [facility] HospitalKjysen11-32-7484hkoxmxxaa A and hepatitis B vaccineDarrian Dubon MD Work Phone: [facility] HospitalBaltju02-59-1031czficzvgl A and hepatitis B vaccineDarrian Dubon MD Work Phone: [facility] HospitalIvcvll45-96-3391mzvjgifhvbne polysaccharide vaccine, 23 Isaias Dubon MD Work Phone: [facility] Payers DatePayer CategoryPayerPolicy ID2021MedicareDEVOTED MEDICARE DEVOTED HEALTH [id number] 2021-Present [phone] [address] [place] [address]RSG [id number] 2021Medicare (Managed Care) [facility] [id number] Health InsuranceDEVOBAYLOR [facility] Member Subscriber Plan / Payer (Effective 2021-Present) Name: Jam Toscano Member ID: [id number] Relation to Subscriber: Self Name: Jam Toscano Subscriber ID: [id number] Payer ID: Not on file Group ID: Not on file Type: HMO Address: [facility] [id number] [place] [id number] [id number] [id number] 2.0.1.252977.3.57[id number] 2.840.1.332311.3.57[id number] 2.0.1.514674.3.57[id number] 2.840.1.066868.3.57[id number] 2.0.1.855330.3.57[id number] 2.0.1.525424.3.57[id number] 2.0.1.556427.3.57[id number] 2.0.1.576981.3.57[id number] 2.0.1.357561.3.57[id number] 2.840.1.460836.3.57[id number] 2.0.1.471701.3.57[id number] 2.840.1.208109.3.57[id number] 2.840.1.008138.3.57[id number] 2.840.1.999372.3.57[id number] 2.840.1.643847.3.57[id number] 2.0.1.670656.3.57[id number] 2.0.1.877027.3.57[id number] 2.0.1.622182.3.57[id number] 2.840.1.342350.3.57[id number] 2.0.1.779498.3.57[id number] 2.0.1.837234.3.57[id number] 2.0.1.968106.3.57[id number] 2.840.1.382574.3.579.2.727Private Health InsuranceSelf [id number] Pay [id number] Social History DateTypeDetailFacilityTobacco smoking status NHISUnknown if ever smokedDayton Va Medical CenterStart: 36-60-8464Edq Assigned At BirthMalKettering Health Springfield CtrStart: 01-24-2020 End: 13-31-7488Borfoew smoking status NHISEx-smokerMercy Health Allen Hospitaltart: 01-24-2020 End: 50-85-6538Fwxxcrp use and exposureSmokeless tobacco non-userMercy Health Allen Hospitaltart: 02-20-2021 End: 89-32-1604Owoacne intakeLifetime non-drinker (finding)[facility] Start: 21-84-2312Ygpwvku SDOH Alcohol Binwfjaxc3Uykjhzkde ClinicStart: 01-24-2020 End: 84-25-4375Gptytez Commentquit in 2011[facility] Hospitaltart: 36-56-4930Mnk Assigned At BirthNot on fileMercy Health Allen Hospitaltart: 01-19-2022 End: 33-20-0141Kyfobqde to SARS-CoV-2 (event)Unable to assessBellevue Hospital End: 76-82-0760Ecabmuj of tobacco useCurrent smokerMercy Health Allen Hospitaltart: 01-24-2020 End: 50-87-3419Wmjvewc of Social functionMercy Health Allen Hospitaltart: 01-24-2020 End: 92-79-6311Lhdbyzt Use Disorder Identification Test - Consumption [AUDIT-C] [facility] HospitalHow often to you have a drink containing alcohol?NeverBellevue HospitalAverage Number of DrinksNot on [facility] Hospitaltart: 07-23-2020 End: 44-29-3328Mgqiwpfi to SARS-CoV-2 (event)Not sureBellevue Hospital End: 22-35-1131Snhoqmg of tobacco useCigarette SmokerNOWY HealthcareStart: 42-37-7858Shxpamy use and exposureFormer smokeless tobacco userNOWY Healthcare Start: 06-16-2023 End: 07-33-2173Godcaprux beverage intakeEx-drinker (finding)[facility] Start: 86-71-2046Vnplgul CommentCaffeine: more than 4 cups per dayNOWY Healthcare Goals DatePatient GoalDesired Activity/State Clinical Notes 08-22-2020 to 06-07-2025 Note Date & IhroVrruJztepndc26-16-3795 NoteNurse Consultation Note Assessment/Plan patient tolerated real [...] 05/03/2015 Recorded hepatitis A-hepatitis B vaccine 05/03[facility] Instructions* Patient Instructions* Darrian Dubon MD - 06/06/2025 8:46 AM EDT -PLEASE NOTE THAT WE REVIEW ALL YOUR TEST RESULTS AT YOUR NEXT FOLLOW UP VISIT WITH YOU. IF ANY ABNORMAL LAB REQUIRES SOONER ATTENTION, WE WILL CONTACT YOU. -If you have signed up on Vaccibodyt, we will release your test results through MuseAmi. I wish you the best of health [...] available if Dr. Lackey needs to call [facility] discuss your RA. Continue following with your Store Product Demonstrator. Great work on your bone density. You [...] Additional information on methotrexate available at: The [place] Rheumatology website : https://www.rheumatology.org/I-Am-A/Patient-Caregiver/Treatments /Fuonyyjxvswf-Pjvfrxsnxa-Tvjwpas and The [facility] website : https://my.[facility].org/health/drugs/87095-isepwzkgakgp - Please take your vitamin D with [...] track your nutrition and calcium intake on www.BurudaConcert.Academize This provides macro and micronutrient intake and requirements. - You can track your calcium intake on Kiddify or any other calcium tracker of your [...] youtube and copy and paste this link: https://[email or web address].[email or web address] This is done by a Physical Medicine and Rehab doctor who is a spanish literature professor in [employer]. She completed a PhD at the [facility]. I hope you find it helpful. Please take precautions and start gradual when starting a new exercise program. - I recommend reviewing the exercises from the LIFTMOR study. If you are interested in considering these strength training exercises you will need to work with a Head Chef or Physical Therapist, as they need to [...] low bone mass. BMJ Open. 2017 Apr 27;7(6):v922327. doi: 10.1136/earhksm-6041-907470. PMID: 75898127; PMCID: BPM8407381. -Twin Nick, Selvin Watters, Chetan RENNER, Rosa Maria MONTANO, Shankar WICK. A Comparison of Bone-Targeted Exercise Strategies to Reduce Fracture Risk in Middle-Aged and Older Men with Osteopenia and Osteoporosis:LIFTMOR-M Semi-Randomized Controlled Trial. J Bone [place] Res. 2020 Jun;35(8):3582-4280. doi: 10.1002/jbmr.4008. Epub 2019Feb 12. PMID: 74619360. Information regarding Whole Body Vibration Plate: You can review this article. Ref: Aparicio RDJ, Aparicio RG, Aparicio LC, Arlene SD, S Venkat DC, Ridge. Effectiveness of whole-body vibration on bone mineral density in postmenopausal women: a systematic review and meta-analysis of randomized controlled trials. Osteoporos Int. 2022;34(1):29-52. doi: 10.1007/t52191-238-93299-k. Ep2021Sep 09. PMID: 70525473. Their conclusion: only high frequency associated with [...] hazelnuts, legumes, soybeans and other beans) - Susan (potatoes, avocados, almonds, peanuts) - Chromium (broccoli, [...] Ther Adv Musculoskelet Dis. 2011 Oct;3(6):293-300. doi: 10.1177/4709075X28241473. PMID: 77276386; PMCID: PME5759879. -SUDHEER Carrillo., NYLA Dodson., GHAZAL Flores. et al. Soy isoflavone intake inhibits bone resorption and stimulates bone formation in menopausal women: meta-analysis of randomized controlled trials. Eur J Clin Nutr 62, 155-161 (2008). https://doi.org/10.1038/sj.cn.2303859 -Clyde Rosa, Trisha Lara, Bar De Leon et al. Isoflavone intervention and its impact on bone mineral density in postmenopausal women: a systematic review and meta-analysis of randomized controlled trials. Osteoporos Int (2022). https://doi.org/10.1007/f18078-301-03890-y -Jack Finch, Trisha Lara, Andrez Grant. et al. Effects of isoflavone interventions on bone mineral density in postmenopausal women: a systematic review and meta-analysis of randomized controlled trials. Osteoporos Int 31, 1583-1099 (2020). https://doi.org/10.1007/c45638-165-32357-n - Benefits of consuming soy in whole foods are listed in this article at the PCR website: https://www.pcrm.org/good-nutrition/nutrition-information/erx-ezy-kunpcg - Prunes have been reported to help [...] Am J Clin Nutr. 2021 6;116(4):897-910. doi: 10.1093/ajcn/xlgb830. PMID: 10645593. -Benefit to bone density and inflammation: Hebert WYMAN, Perrin, Glory SOLARES, Sivakumar ALDANA, Trey CUBA. The Role of Prunes in Modulating Inflammatory Pathways to Improve Bone Health in Postmenopausal Women. Adv Nutr. 2021 2;13(5):1476- 1492. doi: 10.1093/advances/sjad325. PMID: 66783356; PMCID: TET5486808. - Information on Vitamin K2: more recently [...] foods, with the exception of Natto(a traditional Vincentian food made from fermented soybeans) has high [...] of these foods, please consult with your Bar Attendant or Physician first. Review of Osteoporosis medications [...] femur. You can read more at these [facility] web links: https://my.[facility].org/health/treatments/41268-yytwvoaekihpkwz For Fosamax/alendronate: https://my.[facility]/health/drugs/99910-dsaytzajels-qzkibck For Actonel/risedronate: https://my.[facility]/health/drugs/56276-adophoijwrc-nlsh-kugfaphGet Reclast/zoledronic acid: https://my.[facility]/health/drugs/31615-ctoznvlqbo-ekli-hehroi lzo-bwzaab-jthazba-osteoporosis -Subcutaneous Prolia: this is one injection every 6 months, given by the nurse in the office. This medication is given computer terminal operator, indefinitely. Prolia should not be discontinued without [...] looked into transition therapy. Recent study from [facility] Slim et al, 04/11/2020 (PMID: 92516825.The study is ongoing, clinicaltrials.gov; [id number]), reported one infusion of IV Reclast did [...] femur. You can read more at these [facility] web links: https://my.[facility].org/health/drugs/44244-cbuhqfoby-cbsooylqk Medications that build bone density and prevent [...] etc... You can read more at these [facility] web links: For Forteo/teriparatide: https://my.[facility] hospitalFire Suppression Specialists.org/health/drugs/78763-rqevmfkekcvx-lfryzkkkh For Tymlos/abaloparatide: https://marshallindex.Telefonica.org/health/drugs/39602-jrloischmgico-cmiliakss Medication that both prevents bone loss and [...] initiated in patients who have had an [place] orstroke in the preceding year or those considered high risk. We may need a clearance from a Football Coach prior to proceeding with this medication in patients who have a cardiovascular disease history. This is only prescribed for 1 year and then needs to be followed by anti- resorptive therapy, according to recommendations. You can read more at these [facility] web links: For Evenity/romosozumab: https://my.[facility].org/health/drugs/72171-drycrqacray-ivgyidvmo Other less potent Osteoporosis medications, such as [...] available medications were provided: Link to the [place] College [employer] Rheumatology website at: https://www.rheumatology.org/I-Am-A/Patient -Caregiver/Diseases-Conditions/Osteoporosis Link to the [facility] web link at: On Osteoporosis: https://my.[facility].org/health/diseases/4443-osteoporosis On Osteopenia: https://my.[facility].org/health/diseases/15363-gbdoqthjfc - Additional information on Bone Health and [...] following resources: www.nof.org (National Osteoporosis Foundation) http://www.osteo.org/osteolinks.asp [place] Institutes of Health: 6-444-690-BONE The Calcium Information [place]: Non-Dairy, Plant based Milk, can contain in1 glass up to 450 mg of calcium (300 to 450 mg) Exampled include Oat Milk, Flax Milk, [place] Milk, Cashew Milk, Soy Milk, Peas Milk Examples of Food Sources of Calcium from [facility] Food Milligrams (mg) per serving Percent DV* Soymilk, calcium-fortified, 8 ounces 299 30 Bamberg juice, calcium-fortified, 6 ounces 261 26 Tofu, firm, made with calcium sulfate, cup* 253 25 Tofu, soft, made with calcium sulfate, cup* 138 14 Zknlt-cu-yfs cereal, calcium-fortified, 1 cup 100-1,000 10-100 Turnip greens, fresh, boiled, cup 99 10 Kale, raw, chopped, 1 cup 100 10 Kale, fresh, cooked, 1 cup 94 9 Singaporean cabbage, bok marin, raw, shredded, 1 cup 74 7 Bread, white, 1 slice 73 7 Tortilla, corn, ckuzn-kl-dbae/marshall, one 6 diameter 46 5 Tortilla, flour, dazww-jv-ukbw/marshall, one 6 diameter 32 3 Bread, whole-wheat, [...] daily with a meal; Certain patients require 3927-9660 international units daily and in patients deficient [...] bones. Studies show approximately 50% of [place] men and women are vitamin D deficient [...] of falling. Additional Information is available from: [facility] Osteoporosis Information: https://my.[facility].org/departments/orthopaedics-r heumatology/depts/osteoporosis-metabolic The Bone Health and Osteoporosis Foundation (formerly the National Osteoporosis Foundation) : https://www.bonehealthandosteoporosis.org International Osteoporosis Foundation: https://www.osteoporosis.foundation http://ods.od.nih.gov/factsheets/vitamind.asp [place] [facility] of [facility]: 8-386-552-BONE The Calcium Information [place]: I recommend following a healthy lifestyle. You [...] and maintaining healthy weight. with healthy BMI xuymyff14 to 25, and ideally around 22-23 when possible. For Osteoporosis and low bone density, it is important to keep a BMI at 22 or above and ensure good strength training exercise routine. - You can track your nutrition and calcium intake on www.BurudaConcert.Academize This provides macro and micronutrient intake and [...] that features the Whole Plant Based diet, [place] over knives (see video online and visit website). Another movie that was recently released is: Eating You Alive (you can find it at Iizuu) and The Game Changers movie Dr. Fauzia Ansari is a [facility] physician who has done research and published books, is an expert in Whole Plant based diet for prevention and reversal of heart disease. His website is Beam Networks. 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 Rock Velazco's Program for Reversing Diabetes, Your Body in Balance You can also watch YouTube channel : The Doc & Downstream Biomanufacturing Technician Dr. Anthony Carlson has shown the benefit of a starch based whole food plant based diet to his Rheumatoid Arthritis patients, as well as patient with diabetes II, hypertension, obesity, multiple sclerosis, heart disease, acne, and other, his website: www.tejadomaríal.com Dr. Yayo Allred is a renowned animal scientist, who has studied and researched the benefits of the Whole plant based diet. He has also researched the adverse effects of animal proteins on health. He presents many of his research findings in his book The [place] study. Dr. Gerber Becker has completed many research trials proving the reversal of diseases, such as heart disease and early prostate cancer, with healthy lifestyle and the Whole Plant based diet. Dr. Gerber Becker website is: www.alvarodilitronicsevelyn.Academize His new book: Undo It, has evidence based information and guide to following this healthy lifestyle. Dr. Cody Dillon has dedicated a website and additional time to reviewing all food related articles and research and presents them in his power point presentation and on his website at: nutritionfacts.org which is all free. Dr. Dillon has multiple free videos and YouTube, for example https://SpinalMotion.Loxo Oncology/aSgNkhgVtks and https://youArtSquare.be/lXXXygDRyBU. He has written multiple books including: How Not To and How Not To Diet He is now working on his next book: How Not To Age Dr. Danitza Dash (from the [facility]), has articles on the following website: [employer] Mountain Gear For additional ideas on recipes, you could find additional information on practical to follow recipes by reading or watching online and YouTube such as: Downstream Biomanufacturing Technician AJ, Cooking With Plants, The Vegan Corner(recipes from an Sammarinese Downstream Biomanufacturing Technician), The Whole Foods Plant Based Cooking Show and visiting the provided websites for additional information on the whole plant based benefit and cooking recipes. You can also consider watching the vlogs of some of the plant based Athletes such as Fausto Ewing Derek on BurudaConcert Nutrition. You can find very good recipes [...] Dr. Jenny Degroot Lifestyle Medicine (is a Football Coach and Lifestyle Medicine Physician) -Sometimes it helps to start with a simple diet of potatoes, that Dr. Carlson calls AntoniettaIvanshayla Butler. You can learn more about that in his website: www.Isabella Products This is the website for Yarelis Butler pdf : https://www.Isabella Products/wp-content/uploads/ hu-Vsca_Qkejfgb_Nlxuz_Ipvwenl-4.pdf You can also read more on Dr. Carlson's website - When you goal is to lose weight, it is important to listen to your hunger cues. Don't eat until you are stuffed. As soon as you feel you are no longer hungry, stop eating. There is a Vincentian saying that says Tammie Vega, meaning eat until you are 80% full. I say avoideating past 80% of your stomach fullness. This originated from the city [facility], which is one ofthe sites reported in the Blue TopPatch book, one of the highest cities in the world for having the most centenarians. Remember your stomach needs space and capacity for proper digestion of your food. Like a food analyst or a completion manager, they have a limit for proper function, and should not be filled to the top. You can read more about that from the [facility] article Don t Eat Until You re Full ? Instead, Mind Your Tammie [place] Point , at https://health.[facility].org/impt-cjh-ugkbc-oglvx-trqd-a ckvltz-lbfa-czrp-mkpg-kpapz-oz-point/ Most plants contain proteins and all essential [...] a nutrition tracker such as cronometer or Neurolixis, Inc.pal and others. Dr. Maryan Holguin (a psychiatrist [...] you will need to consult with a generator operator to have further evaluation to exclude Celiac [...] - Gentle Yoga Anyone Can Do Anywhere www.CareHubs.Academize/yoga Also on youtube: yoga with Karlie For women, especially after menopause, strength training is important. You can read more on that from Clare Morley, PhD at her website https://www.Enhanced Surface Dynamics and YouTube videos. If you are a beginner, it is best to start with a physical therapist or personal vehicle advisor. There are also several Aps that offer virtual personal training 3- Good Sleep (poor sleep impacts everything, recommended sleep is 7 to 8 hrs. a night). Certain people may need more sleep, depending on their age and other conditions. Meditation and relaxation techniques have shown to help with improving sleep. Try to be consistent with your sleep. You can find more at the [facility] Website on : https://my.[facility].org/departments/wellness/store/go-well#sleep-tab 4- Stress management, be happy, laugh [...] Calm Insight Timer Meditation Stress Free Now ([facility]). You can find more resources at the [facility] website at : https://my.[facility].org/departments/wellness/store/go-well#mvtkuz-mlko-al b There are many free youtube videos on guided meditation as well For Breathing techniques: You can watch John Carlisle and learn the breathing technique and its benefits by watching the following YouTube: https://youApiFixu.be/[email or web address]-TQx22?si=-Xyzjo8SrzFDUgKH. Learning about your awareness/spiritual being, is very [...] work with a psychotherapist or behavioral health wellness health coach. When having a psychiatric condition, it [...] based diet, it is recommended to take MmtiignA84, sublingual, dissolve under the tongue, take once daily. Vitamin B12 is available over the counter, dose could be 2500 mcg, and can be taken once a week, and if your blood levels are low, you mayneed to take it once daily or a higher dose. Raw: Garlic, Cilantro, [place] nuts, Pumpkin seeds, [place] seeds and Flax seed powder have been reported to help with certain metal detoxification such as mercury. Monarch-3 plant based rich foods are good anti-inflammatory [...] the Whole Plant Based Diet, by watching [place] over Un-Lease.com movie and then review website. There are many other resources and educational information on the Whole plant based diet on the Internet and documentaries. There are other resources for wellness that you can also benefit from, such as the [facility] website, [facility].org and includes Plant based and Mediterranean diet, yoga and meditation. Please avoid all dairy products. You could use non-dairy milk such as Flax milk, Cashew milk, [place] milk, Rice milk, Oat milk or Hemp [...] below, just add the ingredients to your completion manager and blend: - Probably the healthiest smoothie is one that contains mostly green leafy vegetables (especially containing kale), some berries, flax seed and water. This might not turn supervisor to be sweet. You can addone or two pitted dates or a frozen banana for natural sweetness. Examples of healthy green smoothies, pack your completion manager (at least half way to 01/17) with a mix of green leafy veggies, then top your completion manager with fruits (such as banana or [...] risk for kidney stones. The same with tajik chards and beet leaves. If you don't [...] of your health and wellbeing. At the [facility], we work as a team for your care, along with Nurse Practitioners, PhysicianAssistants, Nurses and Medical Assistants. It is a privilege and honor to serve you. Thank you for choosing [facility] for your healthcare. Sincerely, Darrian Dubon MD documented in this encounterBellevue Hospital07-22-2025 NoteHNO ID: [id number] Author: DARRIAN DUBON MD Service: ? Author Type: Physician Type: Progress Notes Filed: 06/07/2025 15:19 Note Text: FOLLOW UP VISIT Patient's Name: Jam [address]win [address] [place] [id number] PCP: Jose L Lackey MD [address] [place] [phone] Consult Requested by: Jose L Lackey MD [address] [place] [id number] Other physicians: Store Product Demonstrator prev. Nel Lebron MD (his prev. generator operator left- Ronald Brown MD) ; Now following with Dr. Luis Antonio García Accompanied by: self Interim history: is here for f/u RA and OP Recording using ambient AI software for draft documentation of the visit was discussed with the patient/authorized office services representative; all questions welcomed and answered. Patient/authorized office services representative agreed to proceed Reports doing fine today, but this would be his last apt. 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 He has also been seeking local campaign developer closer to home for him. This is [...] He is still undergoing evaluation by his generator operator for his IBD disease activity. He has been on Entyvio. States he has gastrointestinal evaluation by his generator operator and states - Undergoing capsule endoscopy tomorrow to evaluate small intestine for potential tumors or bleeding. - Recent colonoscopy showed small benign tumors. States told his tumors were benign But still needs the camera States because he is bleeding and requiring His PCP and Store Product Demonstrator are addressing his anemia and further evaluating He had iron infusion 05/26/2025 States he is on potassium and iron infusion by his Primary care physician States his Primary care physician started him on 4 tbs/wk and is comfortable with that He continues on the sulfasalazine, and states his generator operator prescribes it, as well as the Entyvio. No interim fractures Continues on vitamin D I reviewed results with patient 02/14/2025 Mr. Toscano is a very nice 59 y.o. gentleman here for f/u visit for Rheumatoid Arthritis and Osteoporosis He follows with IBD, UC, on Entyvio and sulfasalazine; [facility] had liver US and fibroscan, told no fatty liver He is no longer on anti-TNF therapy. States his PCP is treating his anemia with iron, was on supplement and switched to IV. He is not aware of bleeding, denies BRBPR and denies melena. He follows with Store Product Demonstrator for his UC. [facility] has scopes this summer by his generator operator. He is following with Orthopedics for his osteoarthroses and non-inflammatory joint pains. He has a chronic rotator cuff tear and extensive bilateral glenohumeral degenerat (more content not included)...[facility] 06-06-2025 History of Present illness Narrative* Darrian Dubon MD - 06/06/2025 8:30 AM EDT Images from the original note were not included. FOLLOW UP VISIT Patient's Name: Jam Toscano [address] [place] [address] [facility] [address] PCP: Jose L Lackey MD [address] [place] [phone] Consult Requested by: Jose L Lackey MD [address] [place] [id number] Other physicians: Store Product Demonstrator prevBrittney Lebron MD (his prev. generator operator left- Ronald Brown MD) ; Now following with Dr. Luis Antonio García Accompanied by: self Interim history: is here for f/u RA and OP Recording using ReviewZAP software for draft documentation of the visit was discussed with the patient/authorized office services representative; all questions welcomed and answered. Patient/authorized office services representative agreed to proceed Reports doing fine today, but this would be his last apt. 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 He has also been seeking local campaign developer closer to home for him. This is [...] He is still undergoing evaluation by his generator operator for his IBD disease activity. He has been on Entyvio. States he has gastrointestinal evaluation by his generator operator and states - Undergoing capsule endoscopy tomorrow to evaluate small intestine for potential tumors or bleeding. - Recent colonoscopy showed small benign tumors. States told his tumors were benign But still needs the camera States because he is bleeding and requiring His PCP and Store Product Demonstrator are addressing his anemia and further evaluating He had iron infusion 05/26/2025 States he is on potassium and iron infusion by his Primary care physician States his Primary care physician started him on 4 tbs/wk and is comfortable with that He continues on the sulfasalazine, and states his generator operator prescribes it, as well as the Entyvio. [...] BRBPR and denies melena. He follows with Store Product Demonstrator for his UC. [facility] has scopes this summer by his generator operator. He is following with Orthopedics for his osteoarthroses and non-inflammatory joint pains. He has a chronic rotator cuff tear and extensive bilateral glenohumeral degenerative disease. His s/p b/l TKRand rt THR. Hissed rate was elevated at 79 04/2024 at time of his pneumonia. He continues on sulfasalazine and Entyvio by his generator operator. He does not describe RA related symptoms No jt pains or swelling outside of the LLE from TKR Denies rheum nodules No stiffness He is on sulfasalazine per generator operator for his UC and this has been controlling his RA He is pleased with his treatment regimen He also states that his IBD is well controlled, states told is in remission, on Entyvio Doing exercise and working with personal vehicle advisor at the gym and will be going [...] in IBD and is following with local generator operator for that. Has been on Humira since Sep 2020 (started with 80 mg loading dose and since has been on 40 mg every 2 wks) He was pleased with Enbrel response to his RA and later was switched to Humira, reports has similarbenefit and is pleased with response. His generator operator switched him to Humira for optimal mgt of IBD and he feels this has helped his IBD better. Reports still gets 8 BM's a day, does not have BM at night, does not have to wake up from sleep. Has been following with his generator operator for his UC Had colonoscopy 11/22/2021 with reported marked improvement in asc/transv/desc colon and severe active in rectum, histopath with active colitis with erosions. States Dr. Lebron has started him on rectalenemas. Recent colonoscopy with reported active colitis. He tells me that he continues to have multiple BM's; His generator operator prescribed pred. course, completed recently. No jt [...] us, he is on Humira per his Store Product Demonstrator He is off Enbrel, was switched to Humira by his generator operator. (previously was on Enbrel 25 mg twice a wk and has been in remission since on Enbrel and very pleased with his treatment regimen) He is on Humira 40 mg every 2 wks by his Store Product Demonstrator He is on sulfasalazine, Humira and mesalamine enemas per his generator operator I have reviewed benefits of a whole food plant based diet He consumes dairy, cheese, sausage, hamburger. I have advised him on avoiding meats and dairy and reviewed reports and patient experience with flare of IBD and RA, as well as gastrointestinal dysbiosis. I advised him on a whole foods plant based diet. He has a completion manager (Abakan) and interested in making healthy smoothies and [...] in this patient with known rheumatoid arthritis. Facility Manager Histology: CODY Transcribe Date/Time: Feb 20 2021 9:52A [...] , feels needs to pull bones apart. [facility] is the site where has fallen arch. Has seen Operations Program Manager in the remote past for the fallen arch, not recently. Feels gets stiff when not moving as much. Denies any injury or trauma. Denies any pain to me today States his generator operator has prescribed prednisone course due to IBD flare States after scope was told is flared. He is on sulfasalazine and budesonide and his generator operator and since has switched him from Enbrel [...] Alk phos isoenz: liver fraction; followed by generator operator He follows with his generator operator for hi elev alk phos and AST and for bld with stools, Dr Brown: and states he started him on iron supplement States Dr. Brown prescribed metronidazole, for reported diarrhea. [facility] felt it made a difference. [facility] he gave him enemas and told that is for his ulcerative colitis and prescr. sulfasalazine. In 2019, has also followed with his generator operator for blood with stools, and had flex sig and told he was inflamed from his Ulcerative colitis. [facility] had colonosc and EGD in 2018 and was told were good. Told his bld in stools from his UC and patient states notices also mucus when wipes. [facility] had increased his sulfasalazine dose. [facility] also notices that dairy and [...] systems reviewed and are negative DXA Model: Interact.io W [id number] SITE SCANNED: Lumbar spine and left hip [...] were all normal. He follows with his generator operator for his ulcerative colitis and is on sulfasalazine. He was told by his generator operator to avoid sun exposure due to this med, had skin itching last summer. He had evaluation for elevated AST and alk phos. Alk phos has improved and AST has been borderline elevated. I have advised him to f/u with his generator operator for his elevated alk phos (liver fraction) States his generator operator did an US of his liver twice and was told was normal. He denies any alcohol consumption or acetaminophens. His isoenzyme indicated predom. of liver origin. The patient reports that his generator operator completed evaluation and told his liver is fine. His liver US was unremarkable . His anemia has resolved since his UC has been controlled. States saw his generator operator, Dr. Lebron, recently and states told him [...] and denies hematuria or dysuria. DXA Model: Interact.io W [id number] SITE SCANNED: Lumbar spine and left hip [...] states not bad . has seen a campaign developer in the past, in [place], Dr. Whitfield. [...] 500mg q 6hrs. Reports benefit and his generator operator took him off the iron supplement as [...] Dactylitis: no H/o precedent/frequent infection(s): as above Enthesopathy/Decatur's/heel/plantar tenderness: no Skin thickening, psoriasis, photosensitivity, purpura: no Nail changes: no Alpecia, patchy: no; has MPB Eye inflammation: no SICCA: no Oral/nasal/genital ulcers: no GI problems-diarrhea/bleeding/IBD/Gluten intolerence/Dysphagia: as above Raynaud's phenomenon/digital ulcers: no Organ inv-Serositis: no Lung disease/ILD: no Myopathy/proximal muscle weakness: no Abnormal Urine or urethritis: no Renal disease: no PICKLING TANK OPERATOR/PNS disease: no and denies MS HEME-Cytopenias/LAD/Clots: [...] Marital Status: Single denies children 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 Lackey Smoking: quit [...] Abs Lymph 1.00 - 4.00 k/uL 3.02 [place]% 9.7 Abs [place] 0.00 - 0.86 k/uL 0.79 Eosin% 0.0 [...] Negative Negative Ketones, Urine Negative Negative Specific [place], Ur 1.005 - 1.030 1.008 Hemoglobin/Blood,Ur Negative 3+ (A) pH, Urine 4.5 - 8.0 6.0 Protein, Urine Negative mg/dL Negative Urobilinogen Normal Normal Nitrites Negative Negative Leukest Negative Negative Comments SEE COMMENT Urine Adan Comment SEE COMMENT WBC, Urine 0 - 5 /HPF 0-5 RBC, Urine 0 - 3 /HPF >25 (A) Sm Antibody <1.0 AI <0.2 MEDICAL EDUCATION MANAGER Antibody <1.0 AI 1.2 (H) SSA Antibody <1.0 AI <0.2 SSB Antibody <1.0 AI <0.2 Centromere Ab <1.0 AI <0.2 Scleroderma Ab, IgG <1.0 AI <0.2 Milagro 1 Antibody <1.0 AI <0.2 Ribosomal MEDICAL EDUCATION MANAGER <1.0 AI <0.2 Chromatin Antibody <1.0 AI [...] <12 Sm Antibody <1.0 AI <0.2 Ribosomal MEDICAL EDUCATION MANAGER <1.0 AI <0.2 Chromatin Antibody <1.0 AI <0.2 SSA Antibody <1.0 AI <0.2 SSB Antibody <1.0 AI <0.2 MEDICAL EDUCATION MANAGER Antibody <1.0 AI 1.2 Scleroderma Ab, IgG [...] FINDINGS CONSISTENT WITH CHRONIC SEVERE RHEUMATOID ARTHRITIS. Facility Manager Histology: [facility] Transcribe Date/Time: Aug 29 2015 12:56P ... Last XR Ankle - Impression Only XR ANKLE GENERAL 3V AP/LAT/OBL LT Exam End: 02/20/2021 8:42 AM (Final result) Impression: IMPRESSION: Arthritic changes demonstrating interval progression in this patient with known rheumatoid arthritis. Facility Manager Histology: KETTYB Transcribe Date/Time: Feb 20 2021 9:52A [...] Ta Finn M.D.01/23/2025 9:09 PM Dictation Location: [place] [address] Electronically authenticated by: [id number] Y Date: 01/23/2025 21:09 Dictated By: Ta [...] developed and its performance characteristics determined by [facility] [place] ([facility]). It has not been cleared or approved by the FDA. [facility] is regulated under CLIA as qualified to perform high-complexity testing. This test is used for clinical purposes. It should not be regarded as investigational or for research. Testosterone Date Value Ref Range Status 08/19/2018 387 193 - 824 ng/dL Final Comment: A testosterone level in the 193-320 ng/dL range with associated clinical symptoms is considered low and may indicate hypogonadism (from [facility] 2009 363:123-135). Results >320 ng/dL are considered [...] 147 53 - 334 mg/dL Final MPA [place], Serum Date Value Ref Range Status 08/19/2018 1,020 534 - 1,267 mg/dL Final MPA Lambda, Serum Date Value Ref Range Status 08/19/2018 551 253 - 653 mg/dL Final MPA [place]ers/Lambda Ratio Date Value Ref Range Status 08/19/2018 [...] in patient's severe chronic Rheumatoid Arthritis. His generator operator has switched him to Humira as he [...] methotrexate well, continues on sulfasalazine by his generator operator He is also on Entyvio by his generator operator. -Osteoporosis DXA August 19, 2018 Lowest T-score [...] to receive intermittent steroid therapy from his generator operator. Pharmacologic therapy is still indicated and recommended, [...] RA included in the risk factors. With computer terminal operator systemic steroids FRAX scores would be higher). [...] Also receives labs per Primary care physician/ Store Product Demonstrator Reviewed his labs Advised on phosph. rich diet -The patient's generator operator follows him for his UC, anemia and liver tests. He is on Entyvio and sulfasalazine per his Store Product Demonstrator RA DMARD therapy: patient would like to [...] DMARDs needs to be adjusted to avoid snf use of nsaids and their risk factors and adverse effect. With escalation of treatment for his RA, options include either methotrexate dose increase if labs allow and well tolerated, or he may need to resume his anti-TNF medication (either Enbrel or Humira). With being on methotrexate, folate supplement is recommended. Reports taking folate He is on sulfasalazine per his generator operator and Entyvio for his IBD (He was prev. on Enbrel 25 mg sq twice a week, or may switch to Humira if his generator operator switched him to Humira TNF inhibitor therapy, [...] on sulfasalazine for his IBD per his generator operator RE OP med: Received Reclast infusion, 5 [...] disease. Osteoporosis was likely due to previous computer terminal operator steroid therapy by other physicians over the [...] atypical and subtroch. fracture of femur with computer terminal operator use of bisphosphonates/alendronate and anti-resorptive agents, there [...] wished to proceed. Previous orders -CONSULT TO COMMUNITY SUPPORT WORKER -CONSULT TO PODIATRY Provided referral to OT for assistive devices, exercises to preserve left function Referral to chief investment officer for foot/ankle deformities and callus care, inserts/braces/orthotics, [...] which included preparing to see the patient, [id number] patient care, completing clinical documentation, obtaining and/or [...] If he is able to find another campaign developer closer to home or or if Dr. [...] multiple rheumatologists in this practice here at [facility] who are also able to follow him, [...] is continuing his care with his local generator operator. Please see above discussion on recommendations. He will need regular labs for methotrexate and sulfasalazine monitoring. He will need a recheck CRP to ensure has improved Infection precautions are recommended while on immunosuppressive therapy (IMT) Folic acid/folate supplement is recommended while on methotrexate -He relayed you are managing his anemia and his generator operator is completing further evaluation. -His phosphorous was [...] longer prior and after. Please refer to [place] [employer] Guidelines for up to [...] appropriate immunization recommended. -Continued follow up with generator operator for IBD management and monitoring for liver disease, as they deem necessary Thank you for allowing me to participate in the care of your patient. Darrian Fischer MD Jose L Lackey MD [address] [place], [place] [address] We reassured patient that we have been sending letters and copy of my visit note after each of his office visits. They have been faxed to his Primary care physician office Today, I have also asked my medical lab tech instructor to mail this visit note and letter to his Primary care physician office mailing address. Medical Decision Making: Problems: Moderate: 2+ stable chronic illnesses Data: Unique source(s) for external note(s) reviewed: 3+ Unique test result(s) reviewed: 3+ Discussed management or test w/ external physician/QHCP/source Medical Decision Making Level: 4 - Moderate [facility] History of Present illness Narrative* Blayne [...] PATIENT PRESENTS WITH AN IMPLANTABLE OR ATTACHED MIDDLEWARE SYSTEMS ARCHITECT: No RADIOLOGY DEPARTMENT: Bone Density PERIPHERAL IV DATA: Not applicable SIGNED BY: CHEMO Ching) June 06, 2025 8:12 AM documented in this encounterB[facility]07-[facility]-2025 NoteHNO ID: [id number] Author: BLAYNE DENIS RT(R) Service: ? Author [...] PATIENT PRESENTS WITH AN IMPLANTABLE OR ATTACHED MIDDLEWARE SYSTEMS ARCHITECT: No RADIOLOGY DEPARTMENT: Bone Density PERIPHERAL IV DATA: Not applicable SIGNED BY: CHEMO Ching) June 06, 2025 8:12 [facility]07-16-2025 NoteNurse Consultation Note Assessment/Plan patient [...] 05/03/2015 Recorded hepatitis A-hepatitis B vaccine 05/03/[facility] NoteProgress Note-Physician Patient: JAM TOSCANO Age: 60 years Sex: Male : 1965 Associated Diagnoses: None Author: Kody Ramos Jr., DO Postoperative Information Postoperative disposition: Postoperative disposition: Home. Optimetrix number: Optimetrix number [id number]. Anesthetic utilized: General. Physical Examination Vital Signs [...] to Ambulatory Surgery Unit, and To home ).[facility]:Result Comment: Electronically Signed By: Kody Ramos Jr., DO\.br\Date and Time Signed: 05/11/25 12:13 [id number] NotePatient Education - Text Colonoscopy Care After [...] activities are safe for you. ??? Take uqef-dmj-xeljuwl and prescription medicines only as told by [...] provider. Document Revised: 02/11/2023 Document Reviewed: 02/11/2023 [employer] Patient Education ? 2023 [employer] Peptic Ulcer A peptic ulcer is [...] called Helicobacter pylori or (more content not included)...[facility] Note Endoscopic Procedure Report - Other Patient: JAM TOSCANO Age: 60 years Sex: Male : 1965 Associated Diagnoses: None Author: Luis Antonio García MD Pre-Procedure Procedure Date 05/11/2025 09:39:00 . Procedure Type: Colonoscopy with removal of tumor(s), polyp(s), or other lesion(s) by snare technique, biopsy. Procedure provider Performed by Luis Antonio García MD. Current history and physical Documented on chart. Colonoscopy ([id number]) on 06/03/2024 at 59 Years. Esophagogastroduodenoscopy (165486519) on 06/03/2024 at 59 Years. Colonoscopy ([id number]) on 02/26/2024 at 58 Years. Colonoscopy ([id number]) on 03/23/2023 at 57 Years. Cystoscopy ([id number]) on 02/04/2021 at 55 Years. Colonoscopy (951715433). right hip replacement (884177030). replacement on both knees (546762767).. Past Medical History Resolved Extreme obesity ([id number]): Resolved. Ulcerative colitis (220335526): Resolved.. Family History Asthma Mother Hypertension Mother Heart disease Mother Arthritis Brother Stroke Father High cholesterol Mother . Procedure History Colonoscopy ([id number]) on 06/03/2024 at 59 Years. Esophagogastroduodenoscopy (390354507) on 06/03/2024 at 59 Years. Colonoscopy (912444225) on 02/26/2024 at 58 Years. Colonoscopy (772695515) on 03/23/2023 at 57 Years. Cystoscopy ([id number]) on 02/04/2021 at 55 Years. Colonoscopy (887287451). right hip replacement (955325125). replacement on both knees (684365161).. Colorectal neoplasm risk assessment High risk UC. [...] [id number]_hd_video_[id number]__[id number]_hd_video__[id number].jpg Rec1_hd_video_2024__[id number].jpg Rec1_hd_video__[id number].jpg (more content not included)...[facility]:Result Comment: Electronically Signed By: Ricky ROBLERO, Luis Antonio Tiwari\.br\Date and Time Signed: 05/11/25 09:42 EDTOther Comment: Missing Attachment - attachment storage system not supported [id number] Can be viewed in source system Missing Attachment - attachment storage system not supported [id number] Can be viewed in source systemMissing Attachment - attachment storage system not supported [id number] Can be viewed in source systemMissing Attachment - attachment storage system not supported [id number] Can be viewed in source systemMissing Attachment - attachment storage system not supported [id number] Can be viewed in source systemMissing Attachment - attachment storage system not supported 6088009 Can be viewed in source systemMissing Attachment - attachment storage system not supported 8273076 Can be viewed in source systemMissing Attachment - attachment storage system not supported 5120173 Can be viewed in source system Missing Attachment - attachment storage system not supported 8573667 Can be viewed in source systemMissing Attachment - attachment storage system not supported 5271630 Can be viewed in source systemMissing Attachment - attachment storage system not supported [id number] Can be viewed in source systemMissing Attachment - attachment storage system not supported 2614126 Can be viewed in source systemMissing Attachment - attachment storage system not supported 4711443 Can be viewed in source systemMissing Attachment - attachment storage system not supported 1541433 Can be viewed in source systemMissing Attachment - attachment storage system not supported 6179138 Can be viewed in source system Missing Attachment - attachment storage system not supported [id number] Can be viewed in source systemMissing Attachment - attachment storage system not supported 5596894 Can be viewed in source systemMissing Attachment - attachment storage system not supported 8157512 Can be viewed in source systemMissing Attachment - attachment storage system not supported 5404159 Can be viewed in source systemMissing Attachment - attachment storage system not supported 9352210 Can be viewed in source systemMissing Attachment - attachment storage system not supported 5223211 Can be viewed in source systemMissing Attachment - attachment storage system not supported 3544485 Can be viewed in source system Missing Attachment - attachment storage system not supported 1102624 Can be viewed in source systemMissing Attachment - attachment storage system not supported 6600712 Can be viewed in source systemMissing Attachment - attachment storage system not supported 0104812 Can be viewed in source systemMissing Attachment - attachment storage system not supported 0260522 Can be viewed in source systemMissing Attachment - attachment storage system not supported 6056383 Can be viewed in source systemMissing Attachment - attachment storage system not supported 8694886 Can be viewed in source systemMissing Attachment - attachment storage system not supported 0706781 Can be viewed in source system Missing Attachment - attachment storage system not supported 5804982 Can be viewed in source systemMissing Attachment - attachment storage system not supported 3723472 Can be viewed in source systemMissing Attachment - attachment storage system not supported 0546110 Can be viewed in source systemMissing Attachment - attachment storage system not supported 8451871 Can be viewed in source systemMissing Attachment - attachment storage system not supported 3270806 Can be viewed in source systemMissing Attachment - attachment storage system not supported [id number] Can be viewed in source [id number] Note Endoscopic Procedure Report - Other Patient: [...] follow in GI clinic in 1-2 after dischargeSt[facility] HospitalComment on above:Result Comment: Electronically Signed By: Ricky ROBLERO, Salmon Talal\.br\Date and Time Signed: 05/11/25 09:10 EDTOther Comment: Missing Attachment - attachment storage system not supported [id number] Can be viewed in source system Missing Attachment - attachment storage system not supported [id number] Can be viewed in source systemMissing Attachment - attachment storage system not supported 7697348 Can be viewed in source systemMissing Attachment - attachment storage system not supported 4803581 Can be viewed in source systemMissing Attachment - attachment storage system not supported 9818023 Can be viewed in source systemMissing Attachment - attachment storage system not supported 8361684 Can be viewed in source systemMissing Attachment - attachment storage system not supported 7574947 Can be viewed in source systemMissing Attachment - attachment storage system not supported 6239069 Can be viewed in source system Missing Attachment - attachment storage system not supported 6356035 Can be viewed in source systemMissing Attachment - attachment storage system not supported 1132575 Can be viewed in source systemMissing Attachment - attachment storage system not supported [id number] Can be viewed in source [id number] NoteHistory and Physical Patient: JAM TOSCANO Age: 60 years Sex: Male : 1965 Associated Diagnoses: None Author: Ricky RBOLERO, Luis Antonio Tiwari Preoperative Information Indication for [...] All Problems Food insecurity / SNOMED CT 1560841048 / Possible Problem added automatically by Discern Expert based on clinical documentation Financial problem / SNOMED CT 511451727 / Possible Problem added automatically by Discern Expert based on clinical documentation Unable to afford medication / SNOMED CT 026475778790889 / Possible Problem added automatically by Discern Expert based on clinical documentation Hyperlipemia / SNOMED CT 92038846 / Confirmed Rectal bleed / SNOMED CT 037464578 / Confirmed Heartburn / SNOMED CT 29349908 / Confirmed Ulcerative colitis, universal / SNOMED CT 6400912490 / Confirmed Bladder stone / SNOMED CT 880432460 / Confirmed BPH with urinary obstruction / SNOMED CT 4478510939 / Confirmed Incomplete bladder emptying / SNOMED CT 745279830 / Confirmed Gross hematuria / SNOMED CT 636038807 / Confirmed Kidney stones / SNOMED CT 891889027 / Confirmed Bladder mass / SNOMED CT 7258631983 / Confirmed Urethral stone / SNOMED CT 21512739 / Confirmed Prostate calculus / SNOMED CT 727272038 / Confirmed Continuous severe abdominal pain / SNOMED CT 32473423 / Confirmed Hematochezia / SNOMED CT 1798406429 / Confirmed Acute diarrhea / SNOMED CT 0533590403 / Confirmed Harrietta ulcerative colitis / SNOMED CT 7532808675 / Confirmed Adenomatous colon polyp / SNOMED CT 9482282549 / Confirmed History of colon polyps / SNOMED CT 2573383150 / Confirmed Elevated alkaline phosphatase level / SNOMED CT 8279955946 / Confirmed Anemia / SNOMED CT 326428671 / Confirmed Arthritis / SNOMED CT 2638327 / Confirmed Multiple renal cysts / SNOMED CT 019623784 / Confirmed Ureteral stone with hydronephrosis / SNOMED CT 0801232266 / Confirmed Screening PSA (prostate specific antigen) / SNOMED CT 515897040 / Confirmed Feeling of incomplete bladder emptying / SNOMED CT 4696019438 / Confirmed Pyuria / SNOMED CT 0779062 / Confirmed Histories Past Medical History: Resolved Extreme obesity ([id number]): Resolved. Ulcerative colitis (911746564): Resolved. Family History: Brother Arthritis Father Stroke Mother Asthma High cholesterol Hypertension Heart disease Procedure history: Colonoscopy ([id number]) on 06/03/2024 at 59 Years. Esophagogastroduodenoscopy ([id number]) on 06/03/2024 at 59 Years. Colonoscopy ([id number]) on 02/26/2024 at 58 Years. Colonoscopy ([id number]) on 03/23/2023 at 57 Years. Cystoscopy ([id number]) on 02/04/2021 at 55 Years. Colonoscopy ([id number]). right hip replacement ([id number]). replacement on both knees (487608406). Social History Social & Psychosocial Habits Alcohol 12/14/2024 Risk Assessment: Denies Alcohol Use 12/14/2024 Use: Never Comment: denies - 01/14/2023 08:52 - Tamiko Garcia I Exercise 12/14/2024 R (more content not included)...[facility]:Result Comment: Electronically Signed By: Ricky ROBLERO, Luis Antonio Tiwari\.sania\Date and Time Signed: 05/11/25 09:09 [id number] NoteProgress Note-Physician Patient: JAM TOSCANO Age: 60 [...] All Problems Acute diarrhea / SNOMED CT 7631903729 / Confirmed Adenomatous colon polyp / SNOMED CT 1256161330 / Confirmed Anemia / SNOMED CT 128564923 / Confirmed Arthritis / SNOMED CT 6665440 / Confirmed Bladder mass / SNOMED CT 7252900427 / Confirmed Bladder stone / SNOMED CT 461320085 / Confirmed BPH with urinary obstruction / SNOMED CT 0100946449 / Confirmed Continuous severe abdominal pain / SNOMED CT 00011755 / Confirmed Elevated alkaline phosphatase level / SNOMED CT 6272022433 / Confirmed Feeling of incomplete bladder emptying / SNOMED CT 0937596700 / Confirmed Financial problem / SNOMED CT 493160138 / Possible Problem added automatically by Discern Expert based on clinical documentation Food insecurity / SNOMED CT 8422625410 / Possible Problem added automatically by Discern Expert based on clinical documentation Gross hematuria / SNOMED CT 658913357 / Confirmed Heartburn / SNOMED CT 56317618 / Confirmed Hematochezia / SNOMED CT 6849868530 / Confirmed History of colon polyps / SNOMED CT 9366663913 / Confirmed Hyperlipemia / SNOMED CT 07962991 / Confirmed Incomplete bladder emptying / SNOMED CT 391414121 / Confirmed Kidney stones / SNOMED CT 789316493 / Confirmed Multiple renal cysts / SNOMED CT 318301546 / Confirmed Prostate calculus / SNOMED CT 399761980 / Confirmed Pyuria / SNOMED CT 3062216 / Confirmed Rectal bleed / SNOMED CT 281136836 / Confirmed Screening PSA (prostate specific antigen) / SNOMED CT 125960585 / Confirmed Ulcerative colitis, universal / SNOMED CT 8311938187 / Confirmed Unable to afford medication / SNOMED CT 232941040847310 / Possible Problem added automatically by Discern Expert based on clinical documentation Harrietta ulcerative colitis / SNOMED CT 0298894838 / Confirmed Ureteral stone with hydronephrosis / SNOMED CT 6338755714 / Confirmed Urethral stone / SNOMED CT 85024174 / Confirmed Resolved: Extreme obesity / SNOMED CT 43W37958-2ZB2-89F2-[id number] Resolved: Ulcerative colitis / SNOMED CT 365241594 Canceled: Ulcerative colitis / SNOMED CT 223024628 Histories Past Medical History: Resolved Extreme obesity ([id number]): Resolved. Ulcerative colitis (366698982): Resolve (more content not included)...[facility]Comment [facility] above:Result Comment: Electronically Signed By: Kody Ramos Jr., DO.sania\Date and Time Signed: 05/11/25 08:36 [id number] History of Present illness Narrative* Jr. Bradly [...] 05/03/25 XRAY (L) KNEE 05/03/24, 04/21/23 IN [facility] XRAY AP B/L KNEES 06/17/22, 04/01/22, 02/26/21, [...] Use: Not At Risk (01/24/2020) Received from [facility] AUDIT-C Frequency of Alcohol Consumption: Never [...] for requiring urgent evaluation. documented in this encounterWashington County Memorial HospitalLjybsomdpj02-41-8348 History of Present illness Narrative* Jr. Bradly [...] Use: Not At Risk (01/24/2020) Received from [facility] AUDIT-C Frequency of Alcohol Consumption: Never [...] for requiring urgent evaluation. documented in this encounterWashington County Memorial HospitalWcjivgjwmg04-86-8213 Instructions* Patient Instructions* Darrian Dubon MD - 02/14/2025 7:41 AM EDT -PLEASE NOTE THAT WE REVIEW ALL YOUR TEST RESULTS AT YOUR NEXT FOLLOW UP VISIT WITH YOU. IF ANY ABNORMAL LAB REQUIRES SOONER ATTENTION, WE WILL CONTACT YOU. -If you have signed up on MuseAmi, we will release your test results through MuseAmi. I wish you the best of health [...] track your nutrition and calcium intake on www.BurudaConcert.Academize This provides macro and micronutrient intake and requirements. - You can track your calcium intake on Kiddify or any other calcium tracker of your [...] youtube and copy and paste this link: https://youtu.be/[email or web address] This is done by a Physical Medicine and Rehab doctor who is a spanish literature professor in [employer]. She completed a PhD at the [facility]. I hope you find it helpful. Please take precautions and start gradual when starting a new exercise program. Another reference includes this one: -Dominique RM, Peg Desai J, Ne RL, Agustin SF, Judy EW. Exercise for the prevention of osteoporosisin postmenopausal women: an evidence-based guide to the optimal prescription. Thor J Premises Technician. 2019 Jan-Feb;23(2):170-180. doi: 10.1016/j.bjpt.2018.11.011. Epub 2017Oct 07. PMID: 51377040; PMCID: FYC2993180. - Stress can lead to bone loss. [...] hazelnuts, legumes, soybeans and other beans) - Susan (potatoes, avocados, almonds, peanuts) - Chromium (broccoli, [...] health? Ther Adv Musculoskelet Dis. 2010;3(6):293-300. doi: 10.1177/7486550O80598166. PMID: 94220037; PMCID: YVX1517868. -SUDHEER Carrillo., NYLA Dodson., GHAZAL Flores. et al. Soy isoflavone intake inhibits bone resorption and stimulates bone formation in menopausal women: meta-analysis of randomized controlled trials. Eur J Clin Nutr 62, 155-161 (2007). https://doi.org/10.1038/sj.ejcn.4187255 -Clyde Rosa, Trisha Lara, Harry De Leon. et al. Isoflavone intervention and its impact on bone mineral density in postmenopausal women: a systematic review and meta-analysis of randomized controlled trials. Osteoporos Int (2022). https://doi.org/10.1007/a78136-157-31502-j -Jack Finch, Trisha Lara, Andrez Grant. et al. Effects of isoflavone interventions on bone mineral density in postmenopausal women: a systematic review and meta-analysis of randomized controlled trials. Osteoporos Int 31, 4274-0000 (2020). https://doi.org/10.1007/v69402-187-58771-o - Benefits of consuming soy in whole foods are listed in this article at the PCRM website: https://www.pcrm.org/good-nutrition/nutrition-information/fks-zlj-lmxtiv - Prunes have been reported to help [...] Am J Clin Nutr. 2021 6;116(4):897-910. doi: 10.1093/ajcn/jyao831. PMID: 53498326. -Benefit to bone density and inflammation: Hebert BishopJ, Adame MJ, Glory HL, Sivakumar DE LEONA, Trey CJ. The Role of Prunes in Modulating Inflammatory Pathways to Improve Bone Health in Postmenopausal Women. Adv Nutr. 2021Aug 17;13(5):1476- 1492. doi: 10.1093/advances/szma542. PMID: 85171642; PMCID: APP7346304. - Information on Vitamin K2: more recently [...] foods, with the exception of Natto(a traditional Vincentian food made from fermented soybeans) has high [...] of these foods, please consult with your Bar Attendant or Physician first. Review of Osteoporosis medications [...] femur. You can read more at these [facility] web links: https://my.[facility]/health/treatments/92548-rjjtmijyikpcvig For Fosamax/alendronate: https://my.[facility].org/health/drugs/41429-nvwinusmttg-orfhgri For Actonel/risedronate: https://my.[facility].org/health/drugs/47039-izemvvtbhrr-nxth-jfcjkolRcw Reclast/zoledronic acid: https://my.[facility].org/health/drugs/17510-bnzrrtvhwp-doqc-nucdqc bew-prpnpd-mtfvegt-osteoporosis -Subcutaneous Prolia: this is one injection every [...] study from MR Barbour al, 04/11/2020 (PMID: 31954984.The study is ongoing, clinicaltrials.gov; [id number]), reported one infusion of IV Reclast did [...] femur. You can read more at these [facility] web links: https://marshallindex.[facility].org/health/drugs/04275-yoruzumtw-cbwdyancy Medications that build bone density and prevent [...] etc... You can read more at these [facility] web links: For Forteo/teriparatide: https://marshallindex.Tele[employer]ica.org/health/drugs/67618-ncbzycqtgakv-lrjmmapyp For Tymlos/abaloparatide: https://marshallindex.Telefonica.org/health/drugs/18205-ylsznainoahri-jlekecsxp Medication that both prevents bone loss and [...] initiated in patients who have had an [place] orstroke in the preceding year or those considered high risk. We may need a clearance from a Football Coach prior to proceeding with this medication in patients who have a cardiovascular disease history. This is only prescribed for 1 year and then needs to be followed by anti- resorptive therapy, according to recommendations. You can read more at these [facility] web links: For Evenity/romosozumab: https://my.[facility].org/health/drugs/60595-olbefutyisp-lvimgntcm Other less potent Osteoporosis medications, such as [...] available medications were provided: Link to the [place] College [employer]umatology website at: https://www.rheumatology.org/I-Am-A/Patient -Caregiver/Diseases-Conditions/Osteoporosis Link to the [facility] web link at: On Osteoporosis: https://my.[facility].org/health/diseases/4443-osteoporosis On Osteopenia: https://my.[facility].org/health/diseases/08252-vrosjvxlhx - Additional information on Bone Health and [...] Osteoporosis Foundation) http://www.osteo.org/osteolinks.asp National Institutes of Health: 1-565-380-BONE The Calcium Information Center: Non-Dairy, Plant based Milk, can contain in1 glass up to 450 mg of calcium (300 to 450 mg) Exampled include Oat Milk, Flax Milk, [place] Milk, Cashew Milk, Soy Milk, Peas Milk Examples of Food Sources of Calcium from NIH Food Milligrams (mg) per serving Percent DV* Soymilk, calcium-fortified, 8 ounces 299 30 Bamberg juice, calcium-fortified, 6 ounces 261 26 Tofu, firm, made with calcium sulfate, cup* 253 25 Tofu, soft, made with calcium sulfate, cup* 138 14 Wuphk-dz-rdi cereal, calcium-fortified, 1 cup 100-1,000 10-100 Turnip greens, fresh, boiled, cup 99 10 Kale, raw, chopped, 1 cup 100 10 Kale, fresh, cooked, 1 cup 94 9 Singaporean cabbage, bok marin, raw, shredded, 1 cup 74 7 Bread, white, 1 slice 73 7 Tortilla, corn, ndqzl-ci-osqw/marshall, one 6 diameter 46 5 Tortilla, flour, atzlm-yg-kaai/marshall, one 6 diameter 32 3 Bread, whole-wheat, [...] daily with a meal; Certain patients require 3382-7089 international units daily and in patients deficient [...] bones. Studies show approximately 50% of [place] men and women are vitamin D deficient [...] of falling. Additional Information is available from: [facility] Osteoporosis Information: https://.[facility].org/departments/orthopaedics-r heumatology/depts/osteoporosis-metabolic The Bone Health and Osteoporosis Foundation (formerly the National Osteoporosis Foundation) : https://www.bonehealthandosteoporosis.org International Osteoporosis Foundation: https://www.osteoporosis.foundation http://ods.od.nih.gov/factsheets/vitamind.asp National Institutes of Health: 1-643-322-BONE The Calcium Information [place]: I recommend following a healthy lifestyle. You [...] and maintaining healthy weight. with healthy BMI tzlyzcb01 to 25, and ideally around 22-23 when possible. For Osteoporosis and low bone density, it is important to keep a BMI at 22 or above and ensure good strength training exercise routine. - You can track your nutrition and calcium intake on www.Fluid Entertainmentometer.Academize This provides macro and micronutrient intake and [...] that features the Whole Plant Based diet, [place] over knives (see video online and visit website). Another movie that was recently released is: Eating You Alive (you can find it at Iizuu) and The Bot[employer] ChangeGenero movie Dr. Fauzia Ansari is a [facility] physician who has done research and published books, is an expert in Whole Plant based diet for prevention and reversal of heart disease. His website is Beam Networks. 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 Rock Velazco's Program for Reversing Diabetes, Your Body in Balance You can also watch YouTube channel : The Doc & Downstream Biomanufacturing Technician Dr. Anthony Carlson has shown the benefit of a starch based whole food plant based diet to his Rheumatoid Arthritis patients, as well as patient with diabetes II, hypertension, obesity, multiple sclerosis, heart disease, acne, and other, his website: www.debra.Academize Dr. Yayo Allred is a renowned animal scientist, who has studied and researched the benefits of the Whole plant based diet. He has also researched the adverse effects of animal proteins on health. He presents many of his research findings in his book The [place] study. Dr. Gerber Becker has completed many research trials proving the reversal of diseases, such as heart disease and early prostate cancer, with healthy lifestyle and the Whole Plant based diet. Dr. Gerber Becker website is: www.carmenTwin Star ECS.Academize His new book: Undo It, has evidence based information and guide to following this healthy lifestyle. Dr. Cody Dillon has dedicated a website and additional time to reviewing all food related articles and research and presents them in his power point presentation and on his website at: nutritionfacts.org which is all free. Dr. Dillon has multiple free videos and YouTube, for example https://youApiFixu.be/aSgNkhgVtks and https://SpinalMotion.Loxo Oncology/lXXXygDRyBU. He has written multiple books including: How Not To and How Not To Diet He is now working on his next book: How Not To Age Dr. Danitza Dahs (from the [facility]), has articles on the following website: GeoQuip.Academize For additional ideas on recipes, you could find additional information on practical to follow recipes by reading or watching online and YouTube such as: Chef BELLE, Cooking With Plants, The Vegan Corner(recipes from an Sammarinese Downstream Biomanufacturing Technician), The Whole Foods Plant Based Cooking Show and visiting the provided websites for additional information on the whole plant based benefit and cooking recipes. You can also consider watching the vlogs of some of the plant based Athletes such as Fausto Ewing Derek on Stylecrook. You can find very good recipes for [...] Dr. Jenny Degroot Lifestyle Medicine (is a Football Coach and Lifestyle Medicine Physician) -Sometimes it helps to start with a simple diet of potatoes, that Dr. Carlson calls Yarelis Mini. You can learn more about that in his website: www.Isabella Products This is the website for Yarelis Butler pdf : https://www.Isabella Products/wp-content/uploads/ qo-Ngif_Mbjlifm_Bhfke_Swshoya-9.pdf You can also read more on Dr. Carlson's website - When you goal is to lose weight, it is important to listen to your hunger cues. Don't eat until you are stuffed. As soon as you feel you are no longer hungry, stop eating. There is a Vincentian saying that says Tammie Vega, meaning eat until you are 80% full. I say avoideating past 80% of your stomach fullness. This originated from the city of [facility], which is one ofthe sites reported in the Blue TopPatch book, one of the highest cities in the world for having the most centenarians. Remember your stomach needs space and capacity for proper digestion of your food. Like a food analyst or a completion manager, they have a limit for proper function, and should not be filled to the top. You can read more about that from the [facility] article Don t Eat Until You re Full ? Instead, Mind Your Tammie Vega Point , at https://health.[facility].org/ifiz-vqr-eejec-zuyhn-slaf-v ykwpzl-zbma-lfuf-wzst-cmgqd-oy-point/ Most plants contain proteins and all essential [...] you will need to consult with a generator operator to have further evaluation to exclude Celiac [...] - Gentle Yoga Anyone Can Do Anywhere www.CareHubs.Academize/yoga Also on youtube: yoga with Karlie For women, especially after menopause, strength training is important. You can read more on that from Clare Morley, PhD at her website https://www.Enhanced Surface Dynamics and YouTube videos. If you are a beginner, it is best to start with a physical therapist or personal vehicle advisor. There are also several Aps that offer virtual personal training 3- Good Sleep (poor sleep impacts everything, recommended sleep is 7 to 8 hrs. a night). Certain people may need more sleep, depending on their age and other conditions. Meditation and relaxation techniques have shown to help with improving sleep. Try to be consistent with your sleep. You can find more at the [facility] Website on : https://my.[facility].org/departments/wellness/store/go-well#sleep-tab 4- Stress management, be happy, laugh [...] Calm Insight Timer Meditation Stress Free Now ([facility]). You can find more resources at the [facility] website at : https://my.[facility].org/departments/wellness/store/go-well#zjtdsz-qqsy-jp b There are many free youtube videos on guided meditation as well For Breathing techniques: You can watch John Carlisle and learn the breathing technique and its benefits by watching the following YouTube: https://SpinalMotion.be/5Df8A-WKy46?si=-Ezfps8XnbIXAmEE. Learning about your awareness/spiritual being, is very [...] work with a psychotherapist or behavioral health wellness health coach. When having a psychiatric condition, it [...] based diet, it is recommended to take QavevdrD93, sublingual, dissolve under the tongue, take once daily. Vitamin B12 is available over the counter, dose could be 2500 mcg, and can be taken once a week, and if your blood levels are low, you mayneed to take it once daily or a higher dose. Raw: Garlic, Cilantro, Highland nuts, Pumpkin seeds, [place] seeds and Flax seed powder have been reported to help with certain metal detoxification such as mercury. Monarch-3 plant based rich foods are good anti-inflammatory [...] the Whole Plant Based Diet, by watching [place] over Un-Lease.com movie and then review website. There are many other resources and educational information on the Whole plant based diet on the Internet and documentaries. There are other resources for wellness that you can also benefit from, such as the [facility] website, [facility].org and includes Plant based and Mediterranean diet, yoga and meditation. Please avoid all dairy products. You could use non-dairy milk such as Flax milk, Cashew milk, [place] milk, Rice milk, Oat milk or Hemp [...] below, just add the ingredients to your completion manager and blend: - Probably the healthiest smoothie is one that contains mostly green leafy vegetables (especially containing kale), some berries, flax seed and water. This might not turn supervisor to be sweet. You can addone or two pitted dates or a frozen banana for natural sweetness. Examples of healthy green smoothies, pack your completion manager (at least half way to 3/4) with a mix of green leafy veggies, then top your completion manager with fruits (such as banana or [...] risk for kidney stones. The same with tajik chards and beet leaves. If you don't [...] of your health and wellbeing. At the [facility], we work as a team for your care, along with Nurse Practitioners, PhysicianAssistants, Nurses and Medical Assistants. It is a privilege and honor to serve you. Thank you for choosing The [facility] for your healthcare. Sincerely, Darrian Dubon [...] your usual activities immediately. [facility] History of Present illness Narrative* Darrian Dubon MD - 02/14/2025 7:20 AM EDT Images from the original note were not included. FOLLOW UP VISIT Patient's Name: Jma Toscano [address] [facility] [address] PCP: Jose L Lackey MD [address] [place] [id number] Consult Requested by: Jose L Lackey MD [address] [place], [place] [id number] Other physicians: Store Product Demonstrator prev. Nel Lebron MD (his prev. generator operator left- Ronald Brown MD) ; Now following with Dr. Luis Antonio García Accompanied by: self Interim history: Mr. Toscano is a very nice 59 y.o. gentleman here for f/u visit for Rheumatoid Arthritis and Osteoporosis He follows with IBD, UC, on Entyvio and sulfasalazine; [facility] had liver US and fibroscan, told no fatty liver He is no longer on anti-TNF therapy. States his PCP is treating his anemia with iron, was on supplement and switched to IV. He is not aware of bleeding, denies BRBPR and denies melena. He follows with Store Product Demonstrator for his UC. [facility] has scopes this summer by his generator operator. He is following with Orthopedics for his osteoarthroses and non-inflammatory joint pains. He has a chronic rotator cuff tear and extensive bilateral glenohumeral degenerative disease. His s/p b/l TKRand rt THR. Hissed rate was elevated at 79 04/2024 at time of his pneumonia. He continues on sulfasalazine and Entyvio by his generator operator. He does not describe RA related symptoms No jt pains or swelling outside of the LLE from TKR Denies rheum nodules No stiffness He is on sulfasalazine per generator operator for his UC and this has been controlling his RA He is pleased with his treatment regimen He also states that his IBD is well controlled, states told is in remission, on Entyvio Doing exercise and working with personal vehicle advisor at the gym and will be going [...] in IBD and is following with local generator operator for that. Has been on Humira since Sep 2020 (started with 80 mg loading dose and since has been on 40 mg every 2 wks) He was pleased with Enbrel response to his RA and later was switched to Humira, reports has similarbenefit and is pleased with response. His generator operator switched him to Humira for optimal mgt of IBD and he feels this has helped his IBD better. Reports still gets 8 BM's a day, does not have BM at night, does not have to wake up from sleep. Has been following with his generator operator for his UC Had colonoscopy 11/22/2021 with reported marked improvement in asc/transv/desc colon and severe active in rectum, histopath with active colitis with erosions. States Dr. Lebron has started him on rectalenemas. Recent colonoscopy with reported active colitis. He tells me that he continues to have multiple BM's; His generator operator prescribed pred. course, completed recently. No jt [...] us, he is on Humira per his Store Product Demonstrator He is off Enbrel, was switched to Humira by his generator operator. (previously was on Enbrel 25 mg twice a wk and has been in remission since on Enbrel and very pleased with his treatment regimen) He is on Humira 40 mg every 2 wks by his Store Product Demonstrator He is on sulfasalazine, Humira and mesalamine enemas per his generator operator I have reviewed benefits of a whole food plant based diet He consumes dairy, cheese, sausage, hamburger. I have advised him on avoiding meats and dairy and reviewed reports and patient experience with flare of IBD and RA, as well as gastrointestinal dysbiosis. I advised him on a whole foods plant based diet. He has a completion manager (Abakan) and interested in making healthy smoothies and [...] in this patient with known rheumatoid arthritis. Facility Manager Histology: CODY Transcribe Date/Time: Feb 20 2021 9:52A [...] site where has fallen arch. Has seen Operations Program Manager in the remote past for the fallen arch, not recently. Feels gets stiff when not moving as much. Denies any injury or trauma. Denies any pain to me today States his generator operator has prescribed prednisone course due to IBD flare States after scope was told is flared. He is on sulfasalazine and budesonide and his generator operator and since has switched him from Enbrel [...] Alk phos isoenz: liver fraction; followed by generator operator He follows with his generator operator for hi elev alk phos and AST and for bld with stools, Dr Brown: and states he started him on iron supplement States Dr. Brown prescribed metronidazole, for reported diarrhea. States felt it made a difference. States he gave him enemas and told that is for his ulcerative colitis and prescr. sulfasalazine. In 2019, has also followed with his generator operator for blood with stools, and had flex [...] systems reviewed and are negative DXA Model: Interact.io W [id number] SITE SCANNED: Lumbar spine and left hip [...] were all normal. He follows with his generator operator for his ulcerative colitis and is on sulfasalazine. He was told by his generator operator to avoid sun exposure due to this med, had skin itching last summer. He had evaluation for elevated AST and alk phos. Alk phos has improved and AST has been borderline elevated. I have advised him to f/u with his generator operator for his elevated alk phos (liver fraction) States his generator operator did an US of his liver twice and was told was normal. He denies any alcohol consumption or acetaminophens. His isoenzyme indicated predom. of liver origin. The patient reports that his generator operator completed evaluation and told his liver is fine. His liver US was unremarkable . His anemia has resolved since his UC has been controlled. States saw his generator operator, Dr. Lebron, recently and states told him [...] and denies hematuria or dysuria. DXA Model: Interact.io W [id number] SITE SCANNED: Lumbar spine and left hip [...] reports doing well, states not bad . [facility] has seen a campaign developer in the past, in [place], Dr. Whitfield. [...] 500mg q 6hrs. Reports benefit and his generator operator took him off the iron supplement as his iron was good. 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 Lackey Smoking: quit 2012 Alcohol as above IVDU: denies Industrial toxic exposures: denies FAMILY HISTORY: No family history on file. suspects his mother may have had RA Mother: CAD, CABG, COPD/emphysemia Father: passed from [facility] bother were smokers PERTINENT TESTS: Component Latest [...] Abs Lymph 1.00 - 4.00 k/uL 3.02 [place]% 9.7 Abs [place] 0.00 - 0.86 k/uL 0.79 Eosin% 0.0 [...] Negative Negative Ketones, Urine Negative Negative Specific [place], Ur 1.005 - 1.030 1.008 Hemoglobin/Blood,Ur Negative 3+ (A) pH, Urine 4.5 - 8.0 6.0 Protein, Urine Negative mg/dL Negative Urobilinogen Normal Normal Nitrites Negative Negative Leukest Negative Negative Comments SEE COMMENT Urine Adan Comment SEE COMMENT WBC, Urine 0 - 5 /HPF 0-5 RBC, Urine 0 - 3 /HPF >25 (A) Sm Antibody <1.0 AI <0.2 MEDICAL EDUCATION MANAGER Antibody <1.0 AI 1.2 (H) SSA Antibody <1.0 AI <0.2 SSB Antibody <1.0 AI <0.2 Centromere Ab <1.0 AI <0.2 Scleroderma Ab, IgG <1.0 AI <0.2 Milagro 1 Antibody <1.0 AI <0.2 Ribosomal MEDICAL EDUCATION MANAGER <1.0 AI <0.2 Chromatin Antibody <1.0 AI [...] with Mycobacterium tuberculosis. KURT Negative Positive (A) KRUT Titer Negative 1:80 (A) KURT Pattern Atypical [...] <12 Sm Antibody <1.0 AI <0.2 Ribosomal MEDICAL EDUCATION MANAGER <1.0 AI <0.2 Chromatin Antibody <1.0 AI <0.2 SSA Antibody <1.0 AI <0.2 SSB Antibody <1.0 AI <0.2 MEDICAL EDUCATION MANAGER Antibody <1.0 AI 1.2 Scleroderma Ab, IgG [...] FINDINGS CONSISTENT WITH CHRONIC SEVERE RHEUMATOID ARTHRITIS. Facility Manager Histology: [facility] Transcribe Date/Time: Aug 29 2015 12:56P ... Last XR Ankle - Impression Only XR ANKLE GENERAL 3V AP/LAT/OBL LT Exam End: 02/20/2021 8:42 AM (Final result) Impression: IMPRESSION: Arthritic changes demonstrating interval progression in this patient with known rheumatoid arthritis. Facility Manager Histology: KETTYB Transcribe Date/Time: Feb 20 2021 9:52A [...] developed and its performance characteristics determined by [facility] [place] ([facility]). It has not been cleared or approved by the FDA. -[facility] is regulated under CLIA as [...] 147 53 - 334 mg/dL Final MPA Congers, Serum Date Value Ref Range Status 08/19/2018 1,020 534 - 1,267 mg/dL Final MPA Lambda, Serum Date Value Ref Range Status 08/19/2018 551 253 - 653 mg/dL Final MPA Congers/Lambda Ratio Date Value Ref Range Status 08/19/2018 [...] , Gender: Male SCANNER INFORMATION: DXA Model: Interact.io W [id number] SITE SCANNED: Lumbar spine and left hip [...] www.nof.org International Society of Clinical Densitometry www.iscd.org Facility Manager Histology: [id number] Transcribe Date/Time: Sep 23 2022 10:28A Dictated [...] Z79.899 On sulfasalazine therapy K51.00 Ulcerative pancolitis ([facility]) Comment: On SSZ and Entyvio per GI [...] in patient's severe chronic Rheumatoid Arthritis. His generator operator has switched him to Humira as he [...] to receive intermittent steroid therapy from his generator operator. Pharmacologic therapy is still indicated and recommended, [...] Also receives labs per Primary care physician/ Store Product Demonstrator Recheck DXA scheduled 05/2025 -The patient's generator operator follows him for his UC, anemia and liver tests. He is on Entyvio and sulfasalazine per his Store Product Demonstrator RA med: none from rheum, doing well on sulfasalazine, prescribed by GI (He was prev. on Enbrel 25 mg sq twice a week, or may switch to Humira if his generator operator switched him to Humira TNF inhibitor therapy, [...] on sulfasalazine for his IBD per his generator operator OP med: Received Reclast infusion, 5 mg [...] wished to proceed. Previous orders -CONSULT TO COMMUNITY SUPPORT WORKER -CONSULT TO PODIATRY Provided referral to OT for assistive devices, exercises to preserve left function Referral to chief investment officer for foot/ankle deformities and callus care, inserts/braces/orthotics, [...] spent included preparing to see the patient, leod-sl-piwm patient care, completing clinical documentation, obtaining and/or [...] appropriate immunization recommended. -Continued follow up with generator operator for IBD management and monitoring for liver [...] Darrian Fischer MD Jose L Lackey MD [address] [place] [address] Medical Decision Making: Problems: Moderate: 2+ stable chronic illnesses Data: Unique source(s) for external note(s) reviewed: 3+ Unique test result(s) reviewed: 3+ Medical Decision Making Level: 4 - Moderate documented in [facility]04-[facility]-2025 NoteHNO ID: [id number] Author: DARRIAN DUBON MD Service: ? Author Type: Physician Type: Progress Notes Filed: 02/20/2025 17:28 Note Text: FOLLOW UP VISIT Patient's Name: Jam Torres Rip [place] [id number] PCP: Jose L Lackey MD [address] [place] [phone] Consult Requested by: Jose L Lackey MD [address] [place], [place] [id number] Other physicians: Store Product Demonstrator prev. Nel Lebron MD (his prev. generator operator left- Ronald Brown MD) ; Now following [...] BRBPR and denies melena. He follows with Store Product Demonstrator for his UC. States has scopes this summer by his generator operator. He is following with Orthopedics for his osteoarthroses and non-inflammatory joint pains. He has a chronic rotator cuff tear and extensive bilateral glenohumeral degenerative disease. His s/p b/l TKR and rt THR. Hissed rate was elevated at 79 04/2024 at time of his pneumonia. He continues on sulfasalazine and Entyvio by his generator operator. He does not describe RA related symptoms No jt pains or swelling outside of the LLE from TKR Denies rheum nodules No stiffness He is on sulfasalazine per generator operator for his UC and this has been controlling his RA He is pleased with his treatment regimen He also states that his IBD is well controlled, states told is in remission, on Entyvio Doing exercise and working with personal vehicle advisor at the gym and will be going [...] in IBD and is following with local generator operator for that. Has been on Humira since Sep 2020 (started with 80 mg loading dose and since has been on 40 mg every 2 wks) He was pleased with Enbrel response to his RA and later was switched to Humira, reports has similar benefit and is pleased with response. His generator operator switched him to Humira for optimal mgt of IBD and he feels this has helped his IBD better. Reports still gets 8 BM's a day, does not have BM at night, does not have to wake up from sleep. Has been following with his generator operator for his UC Had colonoscopy 11/22/2021 with reported marked improvement in asc/transv/desc colon and severe active in rectum, histopath with active colitis with erosions. States Dr. Lebron has started him on rectal enemas. Recent colonoscopy with reported active colitis. He tells me that he continues to have multiple BM's; His generator operator prescribed pred. course, completed recently. No jt [...] us, he is on Humira per his Store Product Demonstrator He is off Enbrel, was switched to Humira by his generator operator. (previously was on Enbrel 25 mg twice a wk and has been in remission since on Enbrel and very pleased with his treatment regimen) He is on Humira 40 mg every 2 wks by his Store Product Demonstrator He is on sulfasalazine, Humira and mesalamine enemas per his generator operator I have reviewed benefits of a whole food plant based diet He consumes dairy, cheese, sausage, hamburger. I have advised him on avoiding meats and dairy and reviewed reports and patient experience with flare of IBD and RA, as well as gastrointestinal dysbiosis. I advised him on a whole foods plant based diet. He has a completion manager (nutribullet XL) and interested in making healthy smoothies and we have discussed at last visit. He has stopped drinking monster energy drink with water and I advised him to a (more content not included)...[facility]01-08-2025 Telephone encounter Note* Telephone Encounter - Darrian Dubon MD - 11/23/2024 12:36 PM EST Thank you for trying. Since has seen his PCP, he would not need sooner apt with me. thank you kindly, fa [facility]01-08-2025 Miscellaneous Notes* Telephone Encounter - Darrian [...] Please offer appt with Dr Dubon or SAMPLER PICKUP, if patient still interested. * Telephone Encounter [...] apt with me or any rheum ANGÉLICA (SAMPLER PICKUP or PA) who has opening soon. thank [...] toe 3 days ago. 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 Denies any change in [...] Bilateral feet/fingers/shoulders Please advise documented in this encounterBelle[facility]01-[facility]-2025 Telephone encounter Note * Telephone Encounter - Angelina Nguyen - 11/23/2024 9:34 AM EST Patient returned call and can not make it today, seen his PCP for the issue.please advise. [facility]01-08-2025 Telephone encounter Note* Telephone Encounter - [...] Schulte ARIANNA November 23, 2024 9:03 AM [facility]01-08-2025 Telephone encounter Note* Telephone Encounter - Estephania Devine LPN - 11/23/2024 8:00 AM EST Please offer appt with Dr Dubon or SAMPLER PICKUP, if patient still interested. [facility]01-07-2025 Telephone encounter Note* Telephone Encounter - Darrian [...] apt with me or any rheum ANGÉLICA (SAMPLER PICKUP or PA) who has opening soon. thank you kindly, fa [facility]01-07-2025 NoteUrology Office/Clinic Note Chief Complaint referral HPI Staff 59yr old male referred by Dr. Lackey for kidney stones w/ KUB. KUB done at [facility] on 11/14/24. Pt has seen [...] [facility] [address], [place] [address]- Additional Instructions: f/u pending CT Patient Education [...] emptying Gross hematuria Hea (more content not included)...[facility] Result Comment: Electronically Signed By: Jennifer Nagel\.br\Date and Time Signed: 11/22/24 08:57 EST\.br\Electronically Co-Signed By: Marcin RAMÍREZ MD\.br\Date and Time Co-Signed: 12/02/24 11:56 [id number] Telephone encounter Note* Telephone Encounter - Chica Shi RN - 11/22/2024 8:13 AM EST -Pt returning call to office. Pt identified by name and date. Pt given message as detailed below and verbalized understanding. -States the only trauma/injury he has experienced recently is that he stubbed his RT middle toe 3 days ago. 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 Denies any change in [...] Pt then apologized and ended the call. [facility]01-06-2025 NotePatient Education Nephrology Dietary Guidelines to [...] ? 8 oz (237 mL) of milk, qutbpwa-uickyojbjaje-jedth milk, and calcium- fortifiedfruit juice. Calcium-fortified means [...] Spinach (cooked), rhubarb, beets, sweet potatoes, and Kyrgyz chard. ? Peanuts. ? Potato chips, romansh fries, and baked potatoes with skin on. ? Nuts and nut products. ? Chocolate. ??? If you regularly take a diuretic medicine, make sure to eat at least 1 or 2 servings of fruits or vegetables that are high in potassium each day. These include: ? Avocado. ? Banana. ? Bamberg, prune, carrot, or tomato juice. ? Baked [...] fish oil, or vitamin B6. ??? Take woly-bqa-rdgwaxd and prescription medicines only as told by your health (more content not included)...[facility] Tele[facility] encounter Note* Telephone Encounter - Estephania Devine LPN - 11/21/2024 9:40 AM EST Left message requesting return call. [facility]01-06-2025 Telephone encounter Note* Telephone Encounter - [...] had before ? thank you kindly, fa [facility]01-06-2025 Telephone encounter Note* Telephone Encounter - [...] not completely. Pain: Bilateral feet/fingers/shoulders Please advise [facility]11-20-2024 Instructions* Patient Instructions* Darrian Dubon MD - 10/05/2024 7:56 AM EST -PLEASE NOTE THAT WE REVIEW ALL YOUR TEST RESULTS AT YOUR NEXT FOLLOW UP VISIT WITH YOU. IF ANY ABNORMAL LAB REQUIRES SOONER ATTENTION, WE WILL CONTACT YOU. -If you have signed up on MuseAmi, we will release your test results through MuseAmi. I wish you the best of health [...] track your nutrition and calcium intake on www.BurudaConcert.Academize This provides macro and micronutrient intake and requirements. - You can track your calcium intake on Kiddify or any other calcium tracker of your [...] youtube and copy and paste this link: https://youtu.be/dFChcVp5qWc This is done by a Physical Medicine and Rehab doctor who is a spanish literature professor in [employer]. She completed a PhD at the [employer]. I hope you find it helpful. [...] hazelnuts, legumes, soybeans and other beans) - Susan (potatoes, avocados, almonds, peanuts) - Chromium (broccoli, [...] Eur J Clin Nutr 62, 155-161 (2008). https://doi.org/10.1038/sj.cn.1910923 -Clyde Rosa, Trisha Lara, Harry De Leon. et al. Isoflavone intervention and its impact on bone mineral density in postmenopausal women: a systematic review and meta-analysis of randomized controlled trials. Osteoporos Int (2022). https://doi.org/10.1007/s56250-482-20566-l -Jack Finch, Trisha Lara, Andrez Grant. et al. Effects of isoflavone interventions on bone mineral density in postmenopausal women: a systematic review and meta-analysis of randomized controlled trials. Osteoporos Int 31, 2064-4965 (2020). https://doi.org/10.1007/z25796-462-49496-x - Benefits of consuming soy in whole foods are listed in this article at the PCR website: https://www.pcrm.org/good-nutrition/nutrition-information/iwt-jgb-phyzsj - Prunes have been reported to help [...] Am J Clin Nutr. 2021Aug 21;116(4):897-910. doi: 10.1093/ajcn/tsua332. PMID: 56122062. -Benefit to bone density and inflammation: Hebert BishopJ, Deep MJ, Glory HL, Sivakumar DE LEONA, Trey CJ. The Role of Prunes in Modulating Inflammatory Pathways to Improve Bone Health in Postmenopausal Women. Adv Nutr. 2021Aug 17;13(5):1476- 1492. doi: 10.1093/advances/spav286. PMID: 13071996; PMCID: [id number]. - Information on Vitamin K2: more recently [...] foods, with the exception of Natto(a traditional Vincentian food made from fermented soybeans) has high [...] of these foods, please consult with your Bar Attendant or Physician first. Review of Osteoporosis medications [...] looked into transition therapy. Recent study from [facility] Slim et al, 04/11/2020 (PMID: 99028885.The study is ongoing, clinicaltrials.gov; [id number]), reported one infusion of IV Reclast did [...] initiated in patients who have had an [place] orstroke in the preceding year or those considered high risk. We may need a clearance from a Football Coach prior to proceeding with this medication in [...] and the different available medications at the [place] [employer] website at: https://www.rheumatology.org/I-Am-A/Patient-Caregiver/ Diseases-Conditions/Osteoporosis [...] Osteoporosis Foundation) http://www.osteo.org/osteolinks.asp National Institutes of Health: 0-759-913-BONE The Calcium Information Center: Non-Dairy, Plant based Milk, can contain in1 glass up to 450 mg of calcium (300 to 450 mg) Exampled include Oat Milk, Flax Milk, [place] Milk, Cashew Milk, Soy Milk, Peas Milk Examples of Food Sources of Calcium from [facility] Food Milligrams (mg) per serving Percent DV* Soymilk, calcium-fortified, 8 ounces 299 30 Bamberg juice, calcium-fortified, 6 ounces 261 26 Tofu, firm, made with calcium sulfate, cup* 253 25 Tofu, soft, made with calcium sulfate, cup* 138 14 Vyvtp-rc-khe cereal, calcium-fortified, 1 cup 100-1,000 10-100 Turnip greens, fresh, boiled, cup 99 10 Kale, raw, chopped, 1 cup 100 10 Kale, fresh, cooked, 1 cup 94 9 Singaporean cabbage, bok marin, raw, shredded, 1 cup 74 7 Bread, white, 1 slice 73 7 Tortilla, corn, cwzwz-gi-gcno/marshall, one 6 diameter 46 5 Tortilla, flour, lygcc-qr-tgov/marshall, one 6 diameter 32 3 Bread, whole-wheat, [...] daily with a meal; Certain patients require 6086-9665 international units daily and in patients deficient [...] bones. Studies show approximately 50% of [place] men and women are vitamin D deficient [...] of falling. Additional Information is available from: [facility] Osteoporosis Information: https://my.[facility].org/departments/orthopaedics-r heumatology/depts/osteoporosis-metabolic The Bone Health and Osteoporosis Foundation (formerly the National Osteoporosis Foundation) : https://www.bonehealthandosteoporosis.org International Osteoporosis Foundation: https://www.osteoporosis.foundation http://ods.od.nih.gov/factsheets/vitamind.asp National Institutes of Health: 6-371-331-BONE The Calcium Information [place]: I recommend following a healthy lifestyle. You [...] and maintaining healthy weight. with healthy BMI zreqygb61 to 25, and ideally around 22-23 when possible. For Osteoporosis and low bone density, it is important to keep a BMI at 22 or above and ensure good strength training exercise routine. - You can track your nutrition and calcium intake on www.BurudaConcert.Academize This provides macro and micronutrient intake and [...] that features the Whole Plant Based diet, [place] over knives (see video online and visit website). Another movie that was recently released is: Eating You Alive (you can find it at Iizuu) and The Game Changers movie Dr. Fauzia Ansari is a [facility] physician who has done research and published books, is an expert in Whole Plant based diet for prevention and reversal of heart disease. His website is Beam Networks. 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 Dr. Rock Velazco, has a website and free angélica to help get started on a whole plant based diet, at www.pcrNexstim.org and you can log on for free for his 21-Day Kickstart with meals and recipes to follow for21 days. There is also a free angélica for that. He has multiple free videos and YouTube, for example: ht tps://youApiFixu.be/tjiEapkJ7h0 , https://youApiFixu.be/JxQZStngu7p He has written multiple books, including SimpleRegistry for the Brain, The Cheese Trap, Dr. Rock Velazco's Program for Reversing Diabetes, Your Body in Balance You can also watch YouTube channel : The Doc & Downstream Biomanufacturing Technician Dr. Anthony Carlson has shown the benefit of a starch based whole food plant based diet to his Rheumatoid Arthritis patients, as well as patient with diabetes II, hypertension, obesity, multiple sclerosis, heart disease, acne, and other, his website: www.magnoliaSemetricangel.Academize Dr. Yayo Allred is a renowned animal scientist, who has studied and researched the benefits of the Whole plant based diet. He has also researched the adverse effects of animal proteins on health. He presents many of his research findings in his book The [place] study. Dr. Gerber Becker has completed many research trials proving the reversal of diseases, such as heart disease and early prostate cancer, with healthy lifestyle and the Whole Plant based diet. Dr. Gerber Becker website is: www.carmenTwin Star ECS.Academize His new book: Undo It, has evidence based information and guide to following this healthy lifestyle. Dr. Cody Dillon has dedicated a website and additional time to reviewing all food related articles and research and presents them in his power point presentation and on his website at: nutritionfacts.org which is all free. Dr. Dillon has multiple free videos and YouTube, for example https://youApiFixu.be/aSgNkhgVtks and https://youApiFixu.be/lXXXygDRyBU. He has written multiple books including: How Not To and How Not To Diet He is now working on his next book: How Not To Age Dr. Danitza Dash (from the [facility]), has articles on the following website: GeoQuip.Academize For additional ideas on recipes, you could find additional information on practical to follow recipes by reading or watching online and YouTube such as: Downstream Biomanufacturing Technician AJ, Cooking With Plants, The Vegan Corner(recipes from an Sammarinese Downstream Biomanufacturing Technician), The Whole Foods Plant Based Cooking Show and visiting the provided websites for additional information on the whole plant based benefit and cooking recipes. You can also consider watching the vlogs of some of the plant based Athletes such as Graeme Kamara, Fausto Marmolejo, Agustin on Stylecrook. You can find very good recipes for [...] Dr. Jenny Degroot Lifestyle Medicine (is a Football Coach and Lifestyle Medicine Physician) -Sometimes it helps to start with a simple diet of potatoes, that Dr. Carlson calls Yarelis Butler. You can learn more about that in his website: www.Tosk.Academize This is the website for Yarelis Butler pdf : https://www.Anam Mobile.Academize/wp-content/uploads/Mar kr-Dfdh_Gplqfoq_Luofd_Nvtxvhq-3.pdf You can also read more on Dr. Carlson's website - When you goal is to lose weight, it is important to listen to your hunger cues. Don't eat until you are stuffed. As soon as you feel you are no longer hungry, stop eating. There is a Vincentian saying that says Tammie Vega, meaning eat until you are 80% full. I say avoideating past 80% of your stomach fullness. This originated from the city of [facility], which is one ofthe sites reported in the [employer] book, one of the highest cities in the world for having the most centenarians. Remember your stomach needs space and capacity for proper digestion of your food. Like a food analyst or a completion manager, they have a limit for proper function, and should not be filled to the top. You can read more about that from the [facility] article Don t Eat Until You re Full ? Instead, Mind Your Tammie Borges , at https://health.[facility].org/yweu-kct-ggzsv-zxefw-vrhd-k imvxko-zptr-achr-wpec-jfnjr-ig-point/ Most plants contain proteins and all essential [...] you will need to consult with a generator operator to have further evaluation to exclude Celiac [...] - Gentle Yoga Anyone Can Do Anywhere www.CareHubs.Academize/yoga Also on youtube: yoga with Karlie For women, especially after menopause, strength training is important. You can read more on that from Clare Morley, PhD at her website https://www.En[employer] and YouTube videos. If you are a beginner, it is best to start with a physical therapist or personal vehicle advisor. There are also several [facility] that offer virtual personal training 3- Good Sleep (poor sleep impacts everything, recommended sleep is 7 to 8 hrs. a night). Certain people may need more sleep, depending on their age and other conditions. Meditation and relaxation techniques have shown to help with improving sleep. Try to be consistent with your sleep. You can find more at the [facility] Website on : https://my.[facility].org/departments/wellness/store/go-well#sleep-tab 4- Stress management, be happy, laugh [...] Calm Insight Timer Meditation Stress Free Now ([facility]). You can find more resources at the [facility] website at : https://my.[facility].org/departments/wellness/store/go-well#kvtrst-dkai-rx b There are many free youtube videos on guided meditation as well For Breathing techniques: You can watch John Carlisle and learn the breathing technique and its benefits by watching the following YouTube: https://SpinalMotion.Loxo Oncology/1Ot7N-VFu75?[email or web address]. Learning about your awareness/spiritual being, is very [...] work with a psychotherapist or behavioral health wellness health coach. When having a psychiatric condition, it [...] based diet, it is recommended to take UkddnkpA98, sublingual, dissolve under the tongue, take once daily. Vitamin B12 is available over the counter, dose could be 2500 mcg, and can be taken once a week, and if your blood levels are low, you mayneed to take it once daily or a higher dose. Raw: Garlic, Cilantro, Highland nuts, Pumpkin seeds, [place] seeds and Flax seed powder have been reported to help with certain metal detoxification such as mercury. Monarch-3 plant based rich foods are good anti-inflammatory [...] the Whole Plant Based Diet, by watching [place] over Un-Lease.com movie and then review website. There are many other resources and educational information on the Whole plant based diet on the Internet and documentaries. There are other resources for wellness that you can also benefit from, such as the [facility] website, [facility].org and includes Plant based and Mediterranean diet, yoga and meditation. Please avoid all dairy products. You could use non-dairy milk such as Flax milk, Cashew milk, [place] milk, Rice milk, Oat milk or Hemp [...] below, just add the ingredients to your completion manager and blend: - Probably the healthiest smoothie is one that contains mostly green leafy vegetables (especially containing kale), some berries, flax seed and water. This might not turn supervisor to be sweet. You can addone or two pitted dates or a frozen banana for natural sweetness. Examples of healthy green smoothies, pack your completion manager (at least half way to 01/17) with a mix of green leafy veggies, then top your completion manager with fruits (such as banana or [...] risk for kidney stones. The same with tajik chards and beet leaves. If you don't [...] of your health and wellbeing. At the [facility], we work as a team for your care, along with Nurse Practitioners, PhysicianAssistants, Nurses and Medical Assistants. It is a privilege and honor to serve you. Thank you for choosing [facility] for your healthcare. Sincerely, Darrian Dubon [...] your usual activities immediately. documented in this encounterBelle[facility]11-20-2024 NoteHNO ID: [id number] Author: DARRIAN DUBON MD Service: ? Author Type: Physician Type: Progress Notes Filed: 10/16/2024 19:47 Note Text: FOLLOW UP VISIT Patient's Name: Jam Torres Rip [place] [id number] PCP: Jose L Lackey MD [address] [place] [id number] Consult Requested by: Jose L Lackey MD [address] [place] [id number] Other physicians: Store Product Demonstrator prevBrittney Lebron MD (his prev. generator operator left- Ronald Brown MD) ; Now following [...] No stiffness He is on sulfasalazine per generator operator for his UC and this has been controlling his RA He is pleased with his treatment regimen He also states that his IBD is well controlled, states told is in remission, on Entyvio Doing exercise and working with personal vehicle advisor at the gym and will be going [...] in IBD and is following with local generator operator for that. Has been on Humira since Sep 2020 (started with 80 mg loading dose and since has been on 40 mg every 2 wks) He was pleased with Enbrel response to his RA and later was switched to Humira, reports has similar benefit and is pleased with response. His generator operator switched him to Humira for optimal mgt of IBD and he feels this has helped his IBD better. Reports still gets 8 BM's a day, does not have BM at night, does not have to wake up from sleep. Has been following with his generator operator for his UC Had colonoscopy 11/22/2021 with reported marked improvement in asc/transv/desc colon and severe active in rectum, histopath with active colitis with erosions. States Dr. Lebron has started him on rectal enemas. Recent colonoscopy with reported active colitis. He tells me that he continues to have multiple BM's; His generator operator prescribed pred. course, completed recently. No jt [...] us, he is on Humira per his Store Product Demonstrator He is off Enbrel, was switched to Humira by his generator operator. (previously was on Enbrel 25 mg twice a wk and has been in remission since on Enbrel and very pleased with his treatment regimen) He is on Humira 40 mg every 2 wks by his Store Product Demonstrator He is on sulfasalazine, Humira and mesalamine enemas per his generator operator I have reviewed benefits of a whole food plant based diet He consumes dairy, cheese, sausage, hamburger. I have advised him on avoiding meats and dairy and reviewed reports and patient experience with flare of IBD and RA, as well as gastrointestinal dysbiosis. I advised him on a whole foods plant based diet. He has a completion manager ([employer]) and interested in making healthy smoothies [...] work I have ad (more content not included)...[facility]11-20-2024 History of Present illness Narrative* Braulio-Darrian Valente MD - 10/05/2024 7:42 AM EST Images from the original note were not included. FOLLOW UP VISIT Patient's Name: Jam Murguiaaletha [address] [facility] [id number] PCP: Jose L Lackey MD [facility] [place] [phone] Consult Requested by: Jose L Lackey MD [facility] [facility] [address] Other physicians: Store Product Demonstrator prev. Nel Lebron MD (his prev. generator operator left- Ronald Brown MD) ; Now following [...] No stiffness He is on sulfasalazine per generator operator for his UC and this has been controlling his RA He is pleased with his treatment regimen He also states that his IBD is well controlled, states told is in remission, on Entyvio Doing exercise and working with personal vehicle advisor at the gym and will be going [...] in IBD and is following with local generator operator for that. Has been on Humira since Sep 2020 (started with 80 mg loading dose and since has been on 40 mg every 2 wks) He was pleased with Enbrel response to his RA and later was switched to Humira, reports has similarbenefit and is pleased with response. His generator operator switched him to Humira for optimal mgt of IBD and he feels this has helped his IBD better. Reports still gets 8 BM's a day, does not have BM at night, does not have to wake up from sleep. Has been following with his generator operator for his UC Had colonoscopy 11/22/2021 with reported marked improvement in asc/transv/desc colon and severe active in rectum, histopath with active colitis with erosions. States Dr. Lebron has started him on rectalenemas. Recent colonoscopy with reported active colitis. He tells me that he continues to have multiple BM's; His generator operator prescribed pred. course, completed recently. No jt [...] us, he is on Humira per his Store Product Demonstrator He is off Enbrel, was switched to Humira by his generator operator. (previously was on Enbrel 25 mg twice a wk and has been in remission since on Enbrel and very pleased with his treatment regimen) He is on Humira 40 mg every 2 wks by his Store Product Demonstrator He is on sulfasalazine, Humira and mesalamine enemas per his generator operator I have reviewed benefits of a whole food plant based diet He consumes dairy, cheese, sausage, hamburger. I have advised him on avoiding meats and dairy and reviewed reports and patient experience with flare of IBD and RA, as well as gastrointestinal dysbiosis. I advised him on a whole foods plant based diet. He has a completion manager (Abakan) and interested in making healthy smoothies and [...] in this patient with known rheumatoid arthritis. Facility Manager Histology: CODY Transcribe Date/Time: Feb 20 2021 9:52A [...] site where has fallen arch. Has seen Operations Program Manager in the remote past for the fallen arch, not recently. Feels gets stiff when not moving as much. Denies any injury or trauma. Denies any pain to me today States his generator operator has prescribed prednisone course due to IBD flare States after scope was told is flared. He is on sulfasalazine and budesonide and his generator operator and since has switched him from Enbrel [...] Alk phos isoenz: liver fraction; followed by generator operator He follows with his generator operator for hi elev alk phos and AST and for bld with stools, Dr Brown: and states he started him on iron supplement States Dr. Brown prescribed metronidazole, for reported diarrhea. States felt it made a difference. States he gave him enemas and told that is for his ulcerative colitis and prescr. sulfasalazine. In 2019, has also followed with his generator operator for blood with stools, and had flex [...] systems reviewed and are negative DXA Model: Interact.io W [id number] SITE SCANNED: Lumbar spine and left hip [...] were all normal. He follows with his generator operator for his ulcerative colitis and is on sulfasalazine. He was told by his generator operator to avoid sun exposure due to this med, had skin itching last summer. He had evaluation for elevated AST and alk phos. Alk phos has improved and AST has been borderline elevated. I have advised him to f/u with his generator operator for his elevated alk phos (liver fraction) States his generator operator did an US of his liver twice and was told was normal. He denies any alcohol consumption or acetaminophens. His isoenzyme indicated predom. of liver origin. The patient reports that his generator operator completed evaluation and told his liver is fine. His liver US was unremarkable . His anemia has resolved since his UC has been controlled. States saw his generator operator, Dr. Lebron, recently and states told him [...] and denies hematuria or dysuria. DXA Model: Interact.io W 603843A SITE SCANNED: Lumbar spine and left hip [...] states not bad . has seen a campaign developer in the past, in [place], Dr. Whitfield. States used to be on [...] 500mg q 6hrs. Reports benefit and his generator operator took him off the iron supplement as his iron was good. [facility] has advised him to avoid all nsaids and recently had discontinued his Celebrex. 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 Lackey Smoking: quit 2012 Alcohol as above IVDU: denies Industrial toxic exposures: denies FAMILY HISTORY: No family history on file. suspects his mother may have had RA Mother: CAD, CABG, COPD/emphysemia Father: passed from [facility] bother were smokers PERTINENT TESTS: Component Latest [...] Abs Lymph 1.00 - 4.00 k/uL 3.02 [place]% 9.7 Abs [place] 0.00 - 0.86 k/uL 0.79 Eosin% 0.0 [...] Negative Negative Ketones, Urine Negative Negative Specific [place], Ur 1.005 - 1.030 1.008 Hemoglobin/Blood,Ur Negative 3+ (A) pH, Urine 4.5 - 8.0 6.0 Protein, Urine Negative mg/dL Negative Urobilinogen Normal Normal Nitrites Negative Negative Leukest Negative Negative Comments SEE COMMENT Urine Adan Comment SEE COMMENT WBC, Urine 0 - 5 /HPF 0-5 RBC, Urine 0 - 3 /HPF >25 (A) Sm Antibody <1.0 AI <0.2 MEDICAL EDUCATION MANAGER Antibody <1.0 AI 1.2 (H) SSA Antibody <1.0 AI <0.2 SSB Antibody <1.0 AI <0.2 Centromere Ab <1.0 AI <0.2 Scleroderma Ab, IgG <1.0 AI <0.2 Milagro 1 Antibody <1.0 AI <0.2 Ribosomal MEDICAL EDUCATION MANAGER <1.0 AI <0.2 Chromatin Antibody <1.0 AI [...] <12 Sm Antibody <1.0 AI <0.2 Ribosomal MEDICAL EDUCATION MANAGER <1.0 AI <0.2 Chromatin Antibody <1.0 AI <0.2 SSA Antibody <1.0 AI <0.2 SSB Antibody <1.0 AI <0.2 MEDICAL EDUCATION MANAGER Antibody <1.0 AI 1.2 Scleroderma Ab, IgG [...] FINDINGS CONSISTENT WITH CHRONIC SEVERE RHEUMATOID ARTHRITIS. Facility Manager Histology: KETTY Transcribe Date/Time: Aug 29 2015 12:56P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 for free for his 21-Day Kickstart with meals and recipes to follow for21 days. There is also a free angélica for that. He has multiple free videos and YouTube, for example: ht tps://Searchspaceu.be/[email or web address] , https://SpinalMotion.be/[email or web address] He has written multiple books, including Power Brandsclub for the Brain, The Cheese Trap, Dr. Rock Velazco's Program for Reversing Diabetes, Your Body in Balance Dr. Anthony Carlson has shown the benefit of a starch based whole food plant based diet to his Rheumatoid Arthritis patients, as well as patient with diabetes II, hypertension, obesity, multiple sclerosis, heart disease, acne, and other, his website: www.debra.Academize Dr. Yayo Allred is a renowned animal scientist, who has studied and researched the benefits of the Whole plant based diet. He has also researched the adverse effects of animal proteins on health. He presents many of his research findings in his book The [place] study. Dr. Gerber Becker has completed many research trials proving the reversal of diseases, such as heart disease and early prostate cancer, with healthy lifestyle and the Whole Plant based diet. Dr. Gerber Becker website is: www.carmenTwin Star ECS.Academize His new book: Undo It, has evidence [...] To Age Dr. Danitza Dash (from the [facility]), has articles on the following website: [employer] Also, you could find additional information on practical to follow recipes by reading or watching online and YouTube such as: Downstream Biomanufacturing Technician AJ, Cooking With Plants, The Vegan Corner (recipes from an Sammarinese Downstream Biomanufacturing Technician), The Whole Foods Plant Based Cooking Show and visiting the provided websites for additional information on the whole plant based benefit and cooking recipes. You can also consider watching the vlogs of some of the plant based Athletes such as Fausto Ewing Derek on Stylecrook. Dr. Maryan Holguin (a psychiatrist who suffered [...] - Gentle Yoga Anyone Can Do Anywhere www.CareHubs.Academize/yoga Also on youtube: yoga with Karlie 3- [...] based diet, it is recommended to take AbsxsofW71, sublingual, dissolve under the tongue, take once daily. Vitamin B12 is available over the counter, dose could be 2500 mcg, and can be taken once a week, and if your blood levels are low, you mayneed to take it once daily or a higher dose. Raw: Garlic, Cilantro, [place] nuts, Pumpkin seeds, [place] seeds and Flax seed powder have been reported to help with certain metal detoxification such as mercury. Monarch-3 plant based rich foods are good anti-inflammatory [...] the Whole Plant Based Diet, by watching [place] over Un-Lease.[employer] movie and then review website. There are many other resources and educational information on the Whole plant based diet on the Internet and documentaries. There are other resources for wellness that you can also benefit from, such as the [facility] website, [facility]org and includes Plant based and Mediterranean diet, yoga and meditation. Please avoid all dairy products. You could use non-dairy milk such as Flax milk, Cashew milk, [place] milk, Rice milk, Oat milk or Hemp [...] following resources: www.nof.org (National Osteoporosis Foundation) http://www.osteo.org/osteolinks.asp [place] [facility] of [facility]: 6-821-021-BONE [facility] Calcium Information [place]: -Non-Dairy, Plant based Milk, can contain in1 glass up to 450 mg of calcium (300 to 450 mg) Exampled include Oat Milk, Flax Milk, [place] Milk, Cashew Milk, Soy Milk, Peas Milk general health and well being Examples of Food Sources of Calcium from [facility] Food Milligrams (mg) per serving Percent DV* Soymilk, calcium-fortified, 8 ounces 299 30 Bamberg juice, calcium-fortified, 6 ounces 261 26 Tofu, firm, made with calcium sulfate, cup* 253 25 Tofu, soft, made with calcium sulfate, cup* 138 14 Edgui-wi-tpt cereal, calcium-fortified, 1 cup 100-1,000 10-100 Turnip greens, fresh, boiled, cup 99 10 Kale, raw, chopped, 1 cup 100 10 Kale, fresh, cooked, 1 cup 94 9 Singaporean cabbage, bok marin, raw, shredded, 1 cup 74 7 Bread, white, 1 slice 73 7 Tortilla, corn, rdnro-pb-ufxp/marshall, one 6 diameter 46 5 Tortilla, flour, bgqvj-rm-fnpx/marshall, one 6 diameter 32 3 Bread, whole-wheat, [...] daily with a meal; Certain patients require 0128-2413 iu daily and in patients deficient in [...] bones. Studies show approximately 50% of [place] men and women are vitamin D deficient [...] www.nof.org (the national osteoporosis foundation) http://www.[facility]org/arthritis/osteo/info.htm http://ods.od.nih.gov/factsheets/vitamind.asp The [facility]: 7-299-906-BONE [facility] Information [place]: Review of Osteoporosis medications Medications that prevent [...] atypical and subtroch. fracture of femur with computer terminal operator use of bisphosphonates/alendronate and anti-resorptive agents, there [...] and answer all OP questions. At the [facility], we work as a team for your care, along with Nurse Practitioners, PhysicianAssistants, Nurses and Medical Assistants. It is a privilege and honor to serve you. Thank you for choosing [facility] for your healthcare. Sincerely, Nidia Ascencio APRN.JOSE documented in this encounterBellevue Hospital04-29-2024 History of Present illness Narrative* Nidia [...] procedures No dental concerns [facility] [phone] No serious infections or fevers Stopped celebrex [...] in patient's severe chronic Rheumatoid Arthritis. His generator operator has switched him to Humira as he [...] IBD and intermittent steroid therapy from his generator operator. Pharmacologic therapy is still indicated and recommended, [...] and sulfasalazine, but discuss first with your generator operator. Supplements recommended Vitamin B12: 500 to 1000 [...] which included preparing to see the patient, dscf-ts-rfoi patient care, completing clinical documentation, obtaining and/or [...] YOU. -If you have signed up on MuseAmi, we will release your test results through MuseAmi. I wish you the best of health [...] and sulfasalazine, but discuss first with your generator operator. Supplements recommended Vitamin B12: 500 to 1000 [...] track your nutrition and calcium intake on www.BurudaConcert.Academize This provides macro and micronutrient intake and requirements. - You can track your calcium intake on Kiddify or any other calcium tracker of your [...] now for a cost, such as at www.oNoise. -When eating a whole food plant based [...] track your nutrition and calcium intake on www.BurudaConcert.Academize This provides macro and micronutrient intake and [...] that features the Whole Plant Based diet, [place] over knives (see video online and visit website). Another movie that was recently released is: Eating You Alive (you can find it at Iizuu) and The Game Changers movie Dr. Fauzia Ansari is a [facility] physician who is an expert in Whole Plant based diet. His website is Beam Networks. His research highlights the benefits of the Whole food plant based diet in reversing and preventing heart disease. Mrs. Ansari (his ) has a cookbook with many recipes on whole plant based food: The Prevent and Reverse Heart Disease cookbook. You can also consider reading his son, Eze Ansari's book: The Engine 2 cookbook Eze is a retired telehealth nurse who has helped many people get healthier [...] free videos and YouTube, for example: ht tps://youtu.be/[email or web address] , https://youtu.be/EoKZAbgvj3f He has written multiple books, including SimpleRegistry for the Brain, The Cheese Trap, Dr. Rock Velazco's Program for Reversing Diabetes, Your Body in Balance Dr. Anthony Carlson has shown the benefit of a starch based whole food plant based diet to his Rheumatoid Arthritis patients, as well as patient with diabetes II, hypertension, obesity, multiple sclerosis, heart disease, acne, and other, his website: www.debra.Academize Dr. Yayo Allred is a renowned animal scientist, who has studied and researched the benefits of the Whole plant based diet. He has also researched the adverse effects of animal proteins on health. He presents many of his research findings in his book The [facility] study. Dr. Gerber Becker has completed many research trials proving the reversal of diseases, such as heart disease and early prostate cancer, with healthy lifestyle and the Whole Plant based diet. Dr. Gerber Becker website is: www.alvarodilitronicsevelyn.Academize His new book: Undo It, has evidence based information and guide to following this healthy lifestyle. Dr. Cody Dillon has dedicated a website and additional time to reviewing all food related articles and research and presents them in his power point presentation and on his website at: nutritionfacts.org which is all free. Dr. Dillon has multiple free videos and YouTube, for example https://youArtSquare.be/aSgNkhgVtks and https://youArtSquare.be/lXXXygDRyBU. He has written multiple books including: How Not To and How Not To Diet He is now working on his next book: How Not To Age Dr. Danitaz Dash (from the [facility]), has articles on the following website: [employer]lite Mountain Gear Also, you could find additional information on practical to follow recipes by reading or watching online and YouTube such as: Downstream Biomanufacturing Technician AJ, Cooking With Plants, The Vegan Corner (recipes from an Sammarinese Downstream Biomanufacturing Technician), The Whole Foods Plant Based Cooking Show and visiting the provided websites for additional information on the whole plant based benefit and cooking recipes. You can also consider watching the vlogs of some of the plant based Athletes such as Fausto Ewing Derek on Stylecrook. Dr. Maryan Holguin (a psychiatrist who suffered [...] - Gentle Yoga Anyone Can Do Anywhere www.[facility]/yoga Also on youtube: yoga with Karlie 3- [...] based diet, it is recommended to take ZzswzlhM82, sublingual, dissolve under the tongue, take once daily. Vitamin B12 is available over the counter, dose could be 2500 mcg, and can be taken once a week, and if your blood levels are low, you mayneed to take it once daily or a higher dose. Raw: Garlic, Cilantro, Highland nuts, Pumpkin seeds, [place] seeds and Flax seed powder have been reported to help with certain metal detoxification such as mercury. Monarch-3 plant based rich foods are good anti-inflammatory [...] the Whole Plant Based Diet, by watching [place] over Knives movie and then review website. There are many other resources and educational information on the Whole plant based diet on the Internet and documentaries. There are other resources for wellness that you can also benefit from, such as the [facility] website, [facility] and includes Plant based and Mediterranean diet, yoga and meditation. Please avoid all dairy products. You could use non-dairy milk such as Flax milk, Cashew milk, [place] milk, Rice milk, Oat milk or Hemp [...] Osteoporosis Foundation) http://www.osteo.org/osteolinks.asp National Institutes of Health: 5-288-397-BONE The Calcium Information Center: -Non-Dairy, Plant based Milk, can contain in1 glass up to 450 mg of calcium (300 to 450 mg) Exampled include Oat Milk, Flax Milk, [place] Milk, Cashew Milk, Soy Milk, Peas Milk general health and well being Examples of Food Sources of Calcium from [facility] Food Milligrams (mg) per serving Percent DV* Soymilk, calcium-fortified, 8 ounces 299 30 Bamberg juice, calcium-fortified, 6 ounces 261 26 Tofu, firm, made with calcium sulfate, cup* 253 25 Tofu, soft, made with calcium sulfate, cup* 138 14 Wgidk-dh-odi cereal, calcium-fortified, 1 cup 100-1,000 10-100 Turnip greens, fresh, boiled, cup 99 10 Kale, raw, chopped, 1 cup 100 10 Kale, fresh, cooked, 1 cup 94 9 Singaporean cabbage, bok marin, raw, shredded, 1 cup 74 7 Bread, white, 1 slice 73 7 Tortilla, corn, prnvv-ky-uiwr/marshall, one 6 diameter 46 5 Tortilla, flour, lmwnf-oa-ybxn/marshall, one 6 diameter 32 3 Bread, whole-wheat, [...] daily with a meal; Certain patients require 6831-6206 iu daily and in patients deficient in [...] bones. Studies show approximately 50% of [place] men and women are vitamin D deficient [...] www.nof.org (the national osteoporosis foundation) http://www.[facility].org/arthritis/osteo/info.htm http://ods.od.nih.gov/factsheets/vitamind.asp [place] Institutes of Health: 5-161-897-BONE The Calcium Information [place]: Review of Osteoporosis medications Medications that prevent [...] atypical and subtroch. fracture of femur with computer terminal operator use of bisphosphonates/alendronate and anti-resorptive agents, there [...] and answer all OP questions. At the [facility], we work as a team for your care, along with Nurse Practitioners, PhysicianAssistants, Nurses and Medical Assistants. It is a privilege and honor to serve you. Thank you for choosing [facility] for your healthcare. Sincerely, Nidia Ascencio APRN.WEATHER REPORTER PAST MEDICAL HISTORY Diagnosis Date Monoclonal gammopathy [...] developed and its performance characteristics determined by [facility] [place] ([facility] It has not been cleared or approved by the FDA. -[facility] is regulated under CLIA as [...] 147 53 - 334 mg/dL Final MPA Congers, Serum Date Value Ref Range Status 08/19/2018 1,020 534 - 1,267 mg/dL Final MPA Lambda, Serum Date Value Ref Range Status 08/19/2018 551 253 - 653 mg/dL Final MPA Congers/Lambda Ratio Date Value Ref Range Status 08/19/2018 [...] , Gender: Male SCANNER INFORMATION: DXA Model: Interact.io W [id number] SITE SCANNED: Lumbar spine and left hip [...] www.nof.org International Society of Clinical Densitometry www.iscd.org Facility Manager Histology: [id number] Transcribe Date/Time: Sep 23 2022 10:28A Dictated by : DARRIAN DUBON MD This examination was interpreted and the report reviewed and electronically signed by: DARRIAN DUBON MD on Sep 28 2022 6:46PM EST documented [facility] Miscellaneous Notes* Telephone Encounter - Estephania [...] call * Telephone Encounter - Nidia Ascencio APRN.WEATHER REPORTER - 02/11/2024 1:23 PM EDT Please call [...] Abs Lymph 1.00 - 4.00 k/uL 1.84 [place]% % 7.3 Abs [place] <0.87 k/uL 0.59 Eosin% % 0.1 Abs [...] 113 U/L 211 (H) documented in this encounterBelle[facility]06-20-2023 Miscellaneous Notes* Telephone Encounter - Kelli Rice MA - 05/05/2023 10:50 AM EDT Faxed dental clearance letter to [facility] [phone]. * Telephone Encounter - Donna Keller - 05/05/2023 8:26 AM EDT LMOM for patient to call the office to schedule follow up in about 2 months (around 07/04/2023), or labs at least 1 week prior, for ov and reclast in 2-3 months , please precert. Please warn transfer to the Infusion center * Telephone Encounter - Anais Pate - 05/04/2023 3:18 PM EDT CC chart send: Return in about 2 months (around 07/04/2023), or labs at least 1 week prior, for ov and reclast in 2-3 months , please precert. Please schedule as requested. Anais Pate May 04, 2023 3:18 PM * Telephone Encounter - Estephania Devine LPN - 05/04/2023 1:24 PM EDT Spoke with Reggie at [facility], Letter can be faxed to Dr Mil Farrell for signing at [phone]. * Telephone Encounter - Nidia Ascencio APRN.CNP - 05/04/2023 12:23 PM EDT Please call for dental clearance All procedures complete, infection free, no upcoming dental procedure and ok with dentist prior to reclast If they need a letter may make one for them to send back [facility] [phone] documented in this encounterBellevue Hospital06-19-2023 Instructions* Patient Instructions* Nidia Ascencio APRN.WEATHER REPORTER - 05/04/2023 12:16 PM EDT -PLEASE NOTE THAT WE REVIEW ALL YOUR TEST RESULTS AT YOUR NEXT FOLLOW UP VISIT WITH YOU. IF ANY ABNORMAL LAB REQUIRES SOONER ATTENTION, WE WILL CONTACT YOU. -If you have signed up on Zuldihart, we will release your test results through MuseAmi. I wish you the best of health [...] and sulfasalazine, but discuss first with your generator operator. Supplements recommended Vitamin B12: 500 to 1000 [...] track your nutrition and calcium intake on www.BurudaConcert.Academize This provides macro and micronutrient intake and requirements. - You can track your calcium intake on Fluid Entertainmentometer.Academize or any other calcium tracker of your [...] now for a cost, such as at www.oNoise. -When eating a whole food plant based [...] track your nutrition and calcium intake on www.BurudaConcert.Academize This provides macro and micronutrient intake and [...] that features the Whole Plant Based diet, [place] over knives (see video online and visit website). Another movie that was recently released is: Eating You Alive (you can find it at Iizuu) and The Botanic Innovations ChangeGenero movie Dr. Fauzia Ansari is a [facility] physician who is an expert in Whole Plant based diet. His website is Beam Networks. His research highlights the benefits of the Whole food plant based diet in reversing and preventing heart disease. Mrs. Ansari (his ) has a cookbook with many recipes on whole plant based food: The Prevent and Reverse Heart Disease cookbook. You can also consider reading his son, Eze Ansari's book: The Engine 2 cookbook Eze is a retired telehealth nurse who has helped many people get healthier [...] multiple free videos and YouTube, for example: Wistone tps://Searchspaceu.be/[email or web address] , https://Searchspaceu.be/[email or web address] He has written multiple books, including Power Brandsclub for the Brain, The Cheese Trap, Dr. Rock Velazco's Program for Reversing Diabetes, Your Body in Balance Dr. Anthony Carlson has shown the benefit of a starch based whole food plant based diet to his Rheumatoid Arthritis patients, as well as patient with diabetes II, hypertension, obesity, multiple sclerosis, heart disease, acne, and other, his website: www.debra.Academize Dr. Yayo Allred is a renowned animal scientist, who has studied and researched the benefits of the Whole plant based diet. He has also researched the adverse effects of animal proteins on health. He presents many of his research findings in his book The [place] study. Dr. Gerber Becker has completed many research trials proving the reversal of diseases, such as heart disease and early prostate cancer, with healthy lifestyle and the Whole Plant based diet. Dr. Gerber Becker website is: www.carmenTwin Star ECS.Academize His new book: Undo It, has evidence based information and guide to following this healthy lifestyle. Dr. Cody Dillon has dedicated a website and additional time to reviewing all food related articles and research and presents them in his power point presentation and on his website at: nutritionfacts.org which is all free. Dr. Dillon has multiple free videos and YouTube, for example https://SpinalMotion.be/[email or web address] and [email or web address]. He has written multiple books including: How Not To and How Not To Diet He is now working on his next book: How Not To Age Dr. Danitza Dash (from the [facility]), has articles on the following website: GeoQuip.Academize Also, you could find additional information on practical to follow recipes by reading or watching online and YouTube such as: Downstream Biomanufacturing Technician BARBRA, Cooking With Plants, The Vegan Corner (recipes from an Sammarinese Downstream Biomanufacturing Technician), The Whole Foods Plant Based Cooking Show and visiting the provided websites for additional information on the whole plant based benefit and cooking recipes. You can also consider watching the vlogs of some of the plant based Athletes such as Fausto Ewing Derek on BurudaConcert Nutrition. Dr. Maryan Holguin (a psychiatrist who [...] - Gentle Yoga Anyone Can Do Anywhere www.CareHubs.[email or web address]/yoga Also on youtube: yoga with Karlie 3- [...] based diet, it is recommended to take RrzpdyuF87, sublingual, dissolve under the tongue, take once daily. Vitamin B12 is available over the counter, dose could be 2500 mcg, and can be taken once a week, and if your blood levels are low, you mayneed to take it once daily or a higher dose. Raw: Garlic, Cilantro, [place] nuts, Pumpkin seeds, [place] seeds and Flax seed powder have been reported to help with certain metal detoxification such as mercury. Monarch-3 plant based rich foods are good anti-inflammatory [...] the Whole Plant Based Diet, by watching [place] over Un-Lease.com movie and then review website. There are many other resources and educational information on the Whole plant based diet on the Internet and documentaries. There are other resources for wellness that you can also benefit from, such as the [facility] website, [facility]org and includes Plant based and Mediterranean diet, yoga and meditation. Please avoid all dairy products. You could use non-dairy milk such as Flax milk, Cashew milk, [place] milk, Rice milk, Oat milk or Hemp [...] Osteoporosis Foundation) http://www.osteo.org/osteolinks.asp National Institutes of Health: 1-333-650-BONE The Calcium Information [place]: -Non-Dairy, Plant based Milk, can contain in1 glass up to 450 mg of calcium (300 to 450 mg) Exampled include Oat Milk, Flax Milk, [place] Milk, Cashew Milk, Soy Milk, Peas Milk general health and well being Examples of Food Sources of Calcium from [facility] Food Milligrams (mg) per serving Percent DV* Soymilk, calcium-fortified, 8 ounces 299 30 Bamberg juice, calcium-fortified, 6 ounces 261 26 Tofu, firm, made with calcium sulfate, cup* 253 25 Tofu, soft, made with calcium sulfate, cup* 138 14 Yhxwd-yx-xlv cereal, calcium-fortified, 1 cup 100-1,000 10-100 Turnip greens, fresh, boiled, cup 99 10 Kale, raw, chopped, 1 cup 100 10 Kale, fresh, cooked, 1 cup 94 9 [place]an cabbage, bok marin, raw, shredded, 1 cup 74 7 Bread, white, 1 slice 73 7 Tortilla, corn, ahjho-jp-vcup/marshall, one 6 diameter 46 5 Tortilla, flour, stfck-gy-akpv/marshall, one 6 diameter 32 3 Bread, whole-wheat, [...] daily with a meal; Certain patients require 9604-4347 iu daily and in patients deficient in [...] bones. Studies show approximately 50% of [place] men and women are vitamin D deficient [...] foundation) http://www.[facility].org/arthritis/osteo/info.htm http://ods.od.nih.gov/factsheets/vitamind.asp National Institutes of Health: 1-049-445-BONE The Calcium Information [place]: At the [facility], we work as a team for your care, along with Nurse Practitioners, PhysicianAssistants, Nurses and Medical Assistants. It is a privilege and honor to serve you. Thank you for choosing [facility] for your healthcare. Sincerely, Nidia Ascencio APRN.JOSE documented in this encounterBellevue Hospital06-19-2023 History of Present illness Narrative* Nidia [...] was there Goes back fitting denture 09/09 [facility] [phone] GI - colitis 03/23 Had colonoscopy - [...] in patient's severe chronic Rheumatoid Arthritis. His generator operator has switched him to Humira as he [...] IBD and intermittent steroid therapy from his generator operator. Pharmacologic therapy is still indicated and recommended, [...] if necessary, CC, NOF and ISCD and [facility]. PLAN: [facility] on 05/04/23 VITAMIN D 25 HYDROXY RENAL FUNCTION PANEL MONOCLONAL PROT UR W/INTERP Labs prior to next visit Reclast - You are on entyvio and sulfasalazine for your Ulcerative Colitis. These are also treating your Rheumatoid Arthritis. During infections you will need to hold the entyvio and sulfasalazine, but discuss first with your generator operator. Supplements recommended Vitamin B12: 500 to 1000 [...] looked into transition therapy. Recent study from [facility] Slim et al, 04/11/2020, reported one infusion [...] initiated in patients who have had an [place] orstroke in the preceding year. This is [...] the care of your patient. Nidia Ascencio APRN.[facility] Jose L Lackey MD, MD Patient Instructions -PLEASE NOTE THAT WE REVIEW ALL YOUR TEST RESULTS AT YOUR NEXT FOLLOW UP VISIT WITH YOU. IF ANY ABNORMAL LAB REQUIRES SOONER ATTENTION, WE WILL CONTACT YOU. -If you have signed up on MuseAmi, we will release your test results through MuseAmi. I wish you the best of health [...] and sulfasalazine, but discuss first with your generator operator. Supplements recommended Vitamin B12: 500 to 1000 [...] track your nutrition and calcium intake on www.BurudaConcert.Academize This provides macro and micronutrient intake and requirements. - You can track your calcium intake on BurudaConcert.Academize or any other calcium tracker of your [...] now for a cost, such as at www.oNoise. -When eating a whole food plant based [...] track your nutrition and calcium intake on www.cronometer.Academize This provides macro and micronutrient intake and [...] that features the Whole Plant Based diet, [place] over knives (see video online and visit website). Another movie that was recently released is: Eating You Alive (you can find it at Iizuu) and The Botanic Innov[employer] ChangeGenero movie Dr. Fauzia Ansari is a [facility] physician who is an expert in Whole Plant based diet. His website is Beam Networks. His research highlights the benefits of the Whole food plant based diet in reversing and preventing heart disease. Mrs. Ansari (his ) has a cookbook with many recipes on whole plant based food: The Prevent and Reverse Heart Disease cookbook. You can also consider reading his son, Eze Ansari's book: The Engine 2 cookbook Eze is a retired telehealth nurse who has helped many people get healthier [...] free videos and YouTube, for example: ht tps://youtu.be/[email or web address] , https://youtu.be/[email or web address] He has written multiple books, including Power [...] heart disease, acne, and other, his website: www.debra.Academize Dr. Yayo Allred is a renowned animal scientist, who has studied and researched the benefits of the Whole plant based diet. He has also researched the adverse effects of animal proteins on health. He presents many of his research findings in his book The [place] study. Dr. Gerber Becker has completed many research trials proving the reversal of diseases, such as heart disease and early prostate cancer, with healthy lifestyle and the Whole Plant based diet. Dr. Gerber Becker website is: www.carmenTwin Star ECS.Academize His new book: Undo It, has evidence based information and guide to following this healthy lifestyle. Dr. Cody Dillon has dedicated a website and additional time to reviewing all food related articles and research and presents them in his power point presentation and on his website at: nutritionfacts.org which is all free. Dr. Dillon has multiple free videos and YouTube, for example https://SpinalMotion.be/aSgNkhgVtks and [email or web address] [email or web address]. He has written multiple books including: How Not To and How Not To Diet He is now working on his next book: How Not To Age Dr. Danitza Dash (from the [facility]), has articles on the following website: GeoQuip.Academize Also, you could find additional information on practical to follow recipes by reading or watching online and YouTube such as: Chef BELLE, Cooking With Plants, The Vegan Corner (recipes from an Sammarinese Downstream Biomanufacturing Technician), The Whole Foods Plant Based Cooking Show and visiting the provided websites for additional information on the whole plant based benefit and cooking recipes. You can also consider watching the vlogs of some of the plant based Athletes such as Fausto Ewing Derek on BurudaConcert Nutrition. Dr. Maryan Holguin (a psychiatrist who [...] - Gentle Yoga Anyone Can Do Anywhere www.[facility]/yoga Also on youtube: yoga with Karlie 3- [...] based diet, it is recommended to take RjqzgreD50, sublingual, dissolve under the tongue, take once daily. Vitamin B12 is available over the counter, dose could be 2500 mcg, and can be taken once a week, and if your blood levels are low, you mayneed to take it once daily or a higher dose. Raw: Garlic, Cilantro, [place] nuts, Pumpkin seeds, [place] seeds and Flax seed powder have been reported to help with certain metal detoxification such as mercury. Monarch-3 plant based rich foods are good anti-inflammatory [...] the Whole Plant Based Diet, by watching [place] over Un-Lease.com movie and then review website. There are many other resources and educational information on the Whole plant based diet on the Internet and documentaries. There are other resources for wellness that you can also benefit from, such as the [facility] website, [facility]org and includes Plant based and Mediterranean diet, yoga and meditation. Please avoid all dairy products. You could use non-dairy milk such as Flax milk, Cashew milk, [place] milk, Rice milk, Oat milk or Hemp [...] Osteoporosis Foundation) http://www.osteo.org/osteolinks.asp National Institutes of Health: 9-287-364-BONE The Calcium Information Center: -Non-Dairy, Plant based Milk, can contain in1 glass up to 450 mg of calcium (300 to 450 mg) Exampled include Oat Milk, Flax Milk, [place] Milk, Cashew Milk, Soy Milk, Peas Milk general health and well being Examples of Food Sources of Calcium from NIH Food Milligrams (mg) per serving Percent DV* Soymilk, calcium-fortified, 8 ounces 299 30 Bamberg juice, calcium-fortified, 6 ounces 261 26 Tofu, firm, made with calcium sulfate, cup* 253 25 Tofu, soft, made with calcium sulfate, cup* 138 14 Uqppg-ji-nsn cereal, calcium-fortified, 1 cup 100-1,000 10-100 Turnip greens, fresh, boiled, cup 99 10 Kale, raw, chopped, 1 cup 100 10 Kale, fresh, cooked, 1 cup 94 9 Singaporean cabbage, bok marin, raw, shredded, 1 cup 74 7 Bread, white, 1 slice 73 7 Tortilla, corn, kxfzr-la-fryz/marshall, one 6 diameter 46 5 Tortilla, flour, gndly-pt-tbps/marshall, one 6 diameter 32 3 Bread, whole-wheat, [...] daily with a meal; Certain patients require 3428-4690 iu daily and in patients deficient in [...] bones. Studies show approximately 50% of [place] men and women are vitamin D deficient [...] foundation) http://www.[facility].org/arthritis/osteo/info.htm http://ods.od.nih.gov/factsheets/vitamind.asp National Institutes of Health: 2-481-685-BONE [facility] Calcium Information [place]: At the [facility], we work as a team for your care, along with Nurse Practitioners, PhysicianAssistants, Nurses and Medical Assistants. It is a privilege and honor to serve you. Thank you for choosing [facility] for your healthcare. Sincerely, Nidia Ascencio APRN.WEATHER REPORTER PAST MEDICAL HISTORY Diagnosis Date Monoclonal gammopathy [...] (3 in am, 3 noon,2 pm), per generator operator No current facility-administered medications for this visit. [...] developed and its performance characteristics determined by [facility] [place] ([facility]). It has not been cleared or approved by the FDA. -[facility] is regulated under CLIA as [...] 147 53 - 334 mg/dL Final MPA Congers, Serum Date Value Ref Range Status 08/19/2018 1,020 534 - 1,267 mg/dL Final MPA Lambda, Serum Date Value Ref Range Status 08/19/2018 551 253 - 653 mg/dL Final MPA Congers/Lambda Ratio Date Value Ref Range Status 08/19/2018 [...] , Gender: Male SCANNER INFORMATION: DXA Model: Interact.io W [id number] SITE SCANNED: Lumbar spine and left hip [...] www.nof.org International Society of Clinical Densitometry www.iscd.org Facility Manager Histology: [id number] Transcribe Date/Time: Sep 23 2022 10:28A Dictated by : DARRIAN DUBON MD This examination was interpreted and the report reviewed and electronically signed by: DARRIAN DUBON MD on Nov 13 2022 6:46PM EST documented in this encounterBellevue Hospital04-17-2023 Instructions* Patient Instructions* Nidia Ascencio APRN.JOSE - 03/02/2023 11:10 AM EDT -PLEASE NOTE THAT WE REVIEW ALL YOUR TEST RESULTS AT YOUR NEXT FOLLOW UP VISIT WITH YOU. IF ANY ABNORMAL LAB REQUIRES SOONER ATTENTION, WE WILL CONTACT YOU. -If you have signed up on Zuldihart, we will release your test results through MuseAmi. I wish you the best of health [...] and sulfasalazine, but discuss first with your generator operator. Supplements recommended Vitamin B12: 500 to 1000 [...] track your nutrition and calcium intake on www.Kiddify This provides macro and micronutrient intake and requirements. - You can track your calcium intake on Kiddify or any other calcium tracker of your [...] now for a cost, such as at www.oNoise. -When eating a whole food plant based [...] track your nutrition and calcium intake on www.cronometer.Academize This provides macro and micronutrient intake and [...] that features the Whole Plant Based diet, [place] over knives (see video online and visit website). Another movie that was recently released is: Eating You Alive (you can find it at Iizuu) and The Game Changers movie Dr. Fauzia Ansari is a [facility] physician who is an expert in Whole Plant based diet. His website is Beam Networks. His research highlights the benefits of the Whole food plant based diet in reversing and preventing heart disease. Mrs. Ansari (his ) has a cookbook with many recipes on whole plant based food: The Prevent and Reverse Heart Disease cookbook. You can also consider reading his son, Eze Ansari's book: The Engine 2 cookbook Eze is a retired telehealth nurse who has helped many people get healthier by following the whole food plantbased diet. Dr. Rock Velazco, has a website and free angélica to help get started on a whole plant based diet, at www.pcrNexstim.org and you can log on for free for his 21-Day Kickstart with meals and recipes to follow for21 days. There is also a free angélica for that. He has multiple free videos and YouTube, for example: ht tps://[email or web address] Oncology/[email or web address] , https://[email or web address] [email or web address] He has written multiple books, including SimpleRegistry for the Brain, The Cheese Trap, Dr. Rock Velazco's Program for Reversing Diabetes, Your Body in Balance Dr. Anthony Carlson has shown the benefit of a starch based whole food plant based diet to his Rheumatoid Arthritis patients, as well as patient with diabetes II, hypertension, obesity, multiple sclerosis, heart disease, acne, and other, his website: www.debra.Academize Dr. Yayo Allred is a renowned animal scientist, who has studied and researched the benefits of the Whole plant based diet. He has also researched the adverse effects of animal proteins on health. He presents many of his research findings in his book The [place] study. Dr. Gerber Becker has completed many research trials proving the reversal of diseases, such as heart disease and early prostate cancer, with healthy lifestyle and the Whole Plant based diet. Dr. Gerber Becker website is: www.carmenTwin Star ECS.Academize His new book: Undo It, has evidence based information and guide to following this healthy lifestyle. Dr. Cody Dillon has dedicated a website and additional time to reviewing all food related articles and research and presents them in his power point presentation and on his website at: nutritionfacts.org which is all free. Dr. Dillon has multiple free videos and YouTube, for example https://SpinalMotion.be/aSgNkhgVtks and https://SpinalMotion.be/lXXXygDRyBU. He has written multiple books including: How Not To and How Not To Diet He is now working on his next book: How Not To Age Dr. Danitza Dash (from the [facility]), has articles on the following website: Hyperlite Mountain Gear Also, you could find additional information on practical to follow recipes by reading or watching online and YouTube such as: Downstream Biomanufacturing Technician AJ, Cooking With Plants, The Vegan Corner (recipes from an Sammarinese Downstream Biomanufacturing Technician), The Whole Foods Plant Based Cooking Show and visiting the provided websites for additional information on the whole plant based benefit and cooking recipes. You can also consider watching the vlogs of some of the plant based Athletes such as Fausto Ewing Derek on Stylecrook. Dr. Maryan Holguin (a psychiatrist who suffered [...] - Gentle Yoga Anyone Can Do Anywhere www.[email or web address]/[email or web address] Also on youtube: yoga with Karlie 3- [...] based diet, it is recommended to take TcdtzrnF16, sublingual, dissolve under the tongue, take once daily. Vitamin B12 is available over the counter, dose could be 2500 mcg, and can be taken once a week, and if your blood levels are low, you mayneed to take it once daily or a higher dose. Raw: Garlic, Cilantro, Highland nuts, Pumpkin seeds, [place] seeds and Flax seed powder have been reported to help with certain metal detoxification such as mercury. Monarch-3 plant based rich foods are good anti-inflammatory [...] the Whole Plant Based Diet, by watching [place] over Un-Lease.com movie and then review website. There are many other resources and educational information on the Whole plant based diet on the Internet and documentaries. There are other resources for wellness that you can also benefit from, such as the [facility] website, [facility] and includes Plant based and Mediterranean diet, yoga and meditation. Please avoid all dairy products. You could use non-dairy milk such as Flax milk, Cashew milk, [place] milk, Rice milk, Oat milk or Hemp [...] following resources: www.nof.org (National Osteoporosis Foundation) http://www.osteo.org/osteolinks.asp [place] [facility]: 4-820-455-BONE The Calcium Information [place]: -Non-Dairy, Plant based Milk, can contain in1 glass up to 450 mg of calcium (300 to 450 mg) Exampled include Oat Milk, Flax Milk, [place] Milk, Cashew Milk, Soy Milk, Peas Milk general health and well being Examples of Food Sources of Calcium from [facility] Food Milligrams (mg) per serving Percent DV* Soymilk, calcium-fortified, 8 ounces 299 30 Bamberg juice, calcium-fortified, 6 ounces 261 26 Tofu, firm, made with calcium sulfate, cup* 253 25 Tofu, soft, made with calcium sulfate, cup* 138 14 Idojc-xs-wpj cereal, calcium-fortified, 1 cup 100-1,000 10-100 Turnip greens, fresh, boiled, cup 99 10 Kale, raw, chopped, 1 cup 100 10 Kale, fresh, cooked, 1 cup 94 9 Singaporean cabbage, bok marin, raw, shredded, 1 cup 74 7 Bread, white, 1 slice 73 7 Tortilla, corn, pdpxw-lq-yxvq/marshall, one 6 diameter 46 5 Tortilla, flour, suabd-zs-jfww/marshall, one 6 diameter 32 3 Bread, whole-wheat, [...] daily with a meal; Certain patients require 3924-7597 iu daily and in patients deficient in [...] bones. Studies show approximately 50% of [place] men and women are vitamin D deficient [...] www.nof.org (the national osteoporosis foundation) http://www.[facility].org/arthritis/osteo/info.htm http://ods.od.nih.gov/factsheets/vitamind.asp [place] [facility] of Health: 6-954-312-BONE The Calcium Information [place]: At the [facility], we work as a team for your care, along with Nurse Practitioners, PhysicianAssistants, Nurses and Medical Assistants. It is a privilege and honor to serve you. Thank you for choosing [facility] for your healthcare. Sincerely, Nidia Ascencio APRN.JOSE documented [facility] History of Present illness Narrative* Nidia [...] in patient's severe chronic Rheumatoid Arthritis. His generator operator has switched him to Humira as he [...] IBD and intermittent steroid therapy from his generator operator. Pharmacologic therapy is still indicated and recommended, [...] if necessary, CC, NOF and ISCD and [facility]. PLAN: No orders found for this visit on 03/02/23. Please continue on yout Vitamin D 5000 international units once daily with meals and your multivitamin - You are on Humira and sulfasalazine for your Ulcerative Colitis. These are also treating your Rheumatoid Arthritis. During infections you will need to hold the Humira and sulfasalazine, but discuss first with your generator operator. Supplements recommended Vitamin B12: 500 to 1000 [...] looked into transition therapy. Recent study from [facility] Slim et al, 04/11/2020, reported one infusion [...] initiated in patients who have had an [place] orstroke in the preceding year. This is [...] atypical and subtroch. fracture of femur with computer terminal operator use of bisphosphonates/alendronate and anti-resorptive agents, there [...] the care of your patient. Nidia Ascencio APRN.[facility] cc Jose L Lackey MD, Patient Instructions -PLEASE NOTE THAT WE REVIEW ALL YOUR TEST RESULTS AT YOUR NEXT FOLLOW UP VISIT WITH YOU. IF ANY ABNORMAL LAB REQUIRES SOONER ATTENTION, WE WILL CONTACT YOU. -If you have signed up on MuseAmi, we will release your test results through MuseAmi. I wish you the best of health [...] and sulfasalazine, but discuss first with your generator operator. Supplements recommended Vitamin B12: 500 to 1000 [...] track your nutrition and calcium intake on www.BurudaConcert.Academize This provides macro and micronutrient intake and requirements. - You can track your calcium intake on Kiddify or any other calcium tracker of your [...] now for a cost, such as at www.oNoise. -When eating a whole food plant based [...] track your nutrition and calcium intake on www.BurudaConcert.Academize This provides macro and micronutrient intake and [...] that features the Whole Plant Based diet, [place] over knives (see video online and visit website). Another movie that was recently released is: Eating You Alive (you can find it at Iizuu) and The Game Changers movie Dr. Fauzia Ansari is a [facility] physician who is an expert in Whole Plant based diet. His website is Beam Networks. His research highlights the benefits of the Whole food plant based diet in reversing and preventing heart disease. Mrs. Ansari (his ) has a cookbook with many recipes on whole plant based food: The Prevent and Reverse Heart Disease cookbook. You can also consider reading his son, Eze Ansari's book: The Engine 2 cookbook Eze is a retired telehealth nurse who has helped many people get healthier [...] free videos and YouTube, for example: ht tps://youtu.be/[email or web address] , https://youtu.be/FvDGEhsnb7u He has written multiple books, including Power Brandsclub for the Brain, The Cheese Trap, Dr. Rock Velazco's Program for Reversing Diabetes, Your Body in Balance Dr. Anthony Carlson has shown the benefit of a starch based whole food plant based diet to his Rheumatoid Arthritis patients, as well as patient with diabetes II, hypertension, obesity, multiple sclerosis, heart disease, acne, and other, his website: www.Tosk.Academize Dr. Yayo Allred is a renowned animal scientist, who has studied and researched the benefits of the Whole plant based diet. He has also researched the adverse effects of animal proteins on health. He presents many of his research findings in his book The [place] study. Dr. Gerber Becker has completed many research trials proving the reversal of diseases, such as heart disease and early prostate cancer, with healthy lifestyle and the Whole Plant based diet. Dr. Gerber Becker website is: www.carmenTwin Star ECS.Academize His new book: Undo It, has evidence [...] To Age Dr. Danitza Dash (from the [facility]), has articles on the following website: GeoQuip.Academize Also, you could find additional information on practical to follow recipes by reading or watching online and YouTube such as: Chef BELLE, Cooking With Plants, The Vegan Corner (recipes from an [place]ammar[place] Downstream Biomanufacturing Technician), The Whole Foods Plant Based Cooking Show and visiting the provided websites for additional information on the whole plant based benefit and cooking recipes. You can also consider watching the vlogs of some of the plant based Athletes such as Graeme Kamara, Fausto Marmolejo, Agustin on Stylecrook. Dr. Maryan Holguin (a psychiatrist who suffered [...] - Gentle Yoga Anyone Can Do Anywhere www.[email or web address]/[email or web address] Also on youtube: yoga with Karlie 3- [...] based diet, it is recommended to take JsgzwemL43, sublingual, dissolve under the tongue, take once daily. Vitamin B12 is available over the counter, dose could be 2500 mcg, and can be taken once a week, and if your blood levels are low, you mayneed to take it once daily or a higher dose. Raw: Garlic, Cilantro, High[place] nuts, Pumpkin seeds, [place] seeds and Flax seed powder have been reported to help with certain metal detoxification such as mercury. Monarch-3 plant based rich foods are good anti-inflammatory [...] the Whole Plant Based Diet, by watching [place] over Un-Lease.com movie and then review website. There are many other resources and educational information on the Whole plant based diet on the Internet and documentaries. There are other resources for wellness that you can also benefit from, such as the [facility] website, [facility]org and includes Plant based and Mediterranean diet, yoga and meditation. Please avoid all dairy products. You could use non-dairy milk such as Flax milk, Cashew milk, [place] milk, Rice milk, Oat milk or Hemp [...] Osteoporosis Foundation) http://www.osteo.org/osteolinks.asp National Institutes of Health: 7-458-405-BONE [facility] Calcium Information [place]: -Non-Dairy, Plant based Milk, can contain in1 glass up to 450 mg of calcium (300 to 450 mg) Exampled include Oat Milk, Flax Milk, [place] Milk, Cashew Milk, Soy Milk, Peas Milk general health and well being Examples of Food Sources of Calcium from [facility] Food Milligrams (mg) per serving Percent DV* Soymilk, calcium-fortified, 8 ounces 299 30 Bamberg juice, calcium-fortified, 6 ounces 261 26 Tofu, firm, made with calcium sulfate, cup* 253 25 Tofu, soft, made with calcium sulfate, cup* 138 14 Kztyz-ib-izr cereal, calcium-fortified, 1 cup 100-1,000 10-100 Turnip greens, fresh, boiled, cup 99 10 Kale, raw, chopped, 1 cup 100 10 Kale, fresh, cooked, 1 cup 94 9 Singaporean cabbage, bok marin, raw, shredded, 1 cup 74 7 Bread, white, 1 slice 73 7 Tortilla, corn, habtm-va-cbuc/marshall, one 6 diameter 46 5 Tortilla, flour, jqcda-jo-utlv/marshall, one 6 diameter 32 3 Bread, whole-wheat, [...] daily with a meal; Certain patients require 8684-0888 iu daily and in patients deficient in [...] bones. Studies show approximately 50% of [place] men and women are vitamin D deficient [...] foundation) http://www.[facility].org/arthritis/osteo/info.htm http://ods.od.nih.gov/factsheets/vitamind.asp National Institutes of Health: 0-993-531-BONE [facility] Calcium Information [place]: At the [facility], we work as a team for your care, along with Nurse Practitioners, PhysicianAssistants, Nurses and Medical Assistants. It is a privilege and honor to serve you. Thank you for choosing [facility] for your healthcare. Sincerely, Nidia Ascencio APRN.WEATHER REPORTER PAST MEDICAL HISTORY Diagnosis Date Monoclonal gammopathy [...] mg subcutaneously every 2 weeks. Prescribed by Store Product Demonstrator : Nel Lebron MD Previously prescr. by [...] (3 in am, 3 noon,2 pm), per generator operator No current facility-administered medications for this visit. [...] developed and its performance characteristics determined by [facility] [place] ([facility]). It has not been cleared or approved by the FDA. [facility] is regulated under CLIA as qualified to [...] 147 53 - 334 mg/dL Final MPA Congers, Serum Date Value Ref Range Status 08/19/2018 1,020 534 - 1,267 mg/dL Final MPA Lambda, Serum Date Value Ref Range Status 08/19/2018 551 253 - 653 mg/dL Final MPA Congers/Lambda Ratio Date Value Ref Range Status 08/19/2018 [...] DATE OF EXAM: Sep 23 2022 10:03AM [facility] 0804 - DXA - AXIAL SKELETON / PROCEDURE REASON: multiple diagnoses * * * * Physician Interpretation * * * * EXAMINATION: DXA BONE DENSITOMETRY BD DXA - AXIAL SKELETON PATIENT DEMOGRAPHICS: Age: 57 years, Race: , Gender: Male SCANNER INFORMATION: DXA Model: Interact.io W [id number] SITE SCANNED: Lumbar spine and left hip [...] machine for accurate comparison. FOR MORE INFORMATION: [facility] Osteoporosis and Metabolic Bone Disease: www.ccf.org/arthritis/osteo National Osteoporosis Foundation: www.nof.org International Society of Clinical Densitometry www.iscd.org Facility Manager Histology: [id number] Transcribe Date/Time: Sep 23 2022 10:28A Dictated by : DARRIAN DUBON MD This examination was interpreted and the report reviewed and electronically signed by: DARRIAN DUBON MD on Sep 28 2022 6:46PM EST documented in this encounterB[facility]03-[facility]23 Miscellaneous Notes* Telephone Encounter - Raya Florez MA - 01/15/2023 9:05 AM EST Lm regarding results and recommendations. * Telephone Encounter - Nidia Ascencio APRN.CNP - 01/15/2023 8:58 AM EST Please call patient Normal vit d Please continue current dose * Telephone Encounter - Kelli Rice MA - 01/14/2023 3:17 PM EST Received outside lab results from Zbigniew Mullen ordered by Nidia Ascencio CNP -- 01/12/23 Vit D 40.2 documented in this encounterBellevue Hospital02-26-2023 Instructions* Patient Instructions* Nidia Ascencio APRN.WEATHER REPORTER - 01/11/2023 7:57 PM EST -PLEASE NOTE THAT WE REVIEW ALL YOUR TEST RESULTS AT YOUR NEXT FOLLOW UP VISIT WITH YOU. IF ANY ABNORMAL LAB REQUIRES SOONER ATTENTION, WE WILL CONTACT YOU. -If you have signed up on MuseAmi, we will release your test results through MuseAmi. I wish you the best of health [...] and sulfasalazine, but discuss first with your generator operator. Supplements recommended Vitamin B12: 500 to 1000 [...] track your nutrition and calcium intake on www.BurudaConcert.Academize This provides macro and micronutrient intake and requirements. - You can track your calcium intake on Kiddify or any other calcium tracker of your [...] now for a cost, such as at www.oNoise. -When eating a whole food plant based [...] that features the Whole Plant Based diet, [place] over knives (see video online and visit website). Another movie that was recently released is: Eating You Alive (you can find it at Iizuu) and The Game Changers movie Dr. Fauzia Ansari is a [facility] physician who is an expert in Whole Plant based diet. His website is Beam Networks. His research highlights the benefits of the Whole food plant based diet in reversing and preventing heart disease. Mrs. Ansari (his ) has a cookbook with many recipes on whole plant based food: The Prevent and Reverse Heart Disease cookbook. You can also consider reading his son, Eze Ansari's book: The Engine 2 cookbook Eze is a retired telehealth nurse who has helped many people get healthier by following the whole food plantbased diet. Dr. Rock Velazco, has a website and free angélica to help get started on a whole plant based diet, at www.pcrNexstim.org and you can log on for free for his 21-Day Kickstart with meals and recipes to follow for21 days. There is also a free angélica for that. He has multiple free videos and YouTube, for example: ht tps://youtu.be/[email or web address] , https://youtu.be/[email or web address] He has written multiple books, including SimpleRegistry for the Brain, The Cheese Trap, Dr. Rock Velazco's Program for Reversing Diabetes, Your Body in Balance Dr. Anthony Carlson has shown the benefit of a starch based whole food plant based diet to his Rheumatoid Arthritis patients, as well as patient with diabetes II, hypertension, obesity, multiple sclerosis, heart disease, acne, and other, his website: www.debra.Academize Dr. Yayo Allred is a renowned animal scientist, who has studied and researched the benefits of the Whole plant based diet. He has also researched the adverse effects of animal proteins on health. He presents many of his research findings in his book The [place] study. Dr. Gerber Becker has completed many research trials proving the reversal of diseases, such as heart disease and early prostate cancer, with healthy lifestyle and the Whole Plant based diet. Dr. Gerber Becker website is: www.alvarodilitronicsevelyn.Academize His new book: Undo It, has evidence [...] To Age Dr. Danitza Dash (from the [facility]), has articles on the following website: GeoQuip.Academize Also, you could find additional information on practical to follow recipes by reading or watching online and YouTube such as: Downstream Biomanufacturing Technician AJ, Cooking With Plants, The Vegan Corner (recipes from an Sammarinese Downstream Biomanufacturing Technician), The Whole Foods Plant Based Cooking Show and visiting the provided websites for additional information on the whole plant based benefit and cooking recipes. You can also consider watching the vlogs of some of the plant based Athletes such as Graeme Kamara, Fausto Marmolejo, Agustin on Stylecrook. Dr. Maryan Holguin (a psychiatrist who suffered [...] - Gentle Yoga Anyone Can Do Anywhere www.CareHubs.[email or web address]/yoga Also on youtube: yoga with Karlie 3- [...] based diet, it is recommended to take QruokqyU76, sublingual, dissolve under the tongue, take once daily. Vitamin B12 is available over the counter, dose could be 2500 mcg, and can be taken once a week, and if your blood levels are low, you mayneed to take it once daily or a higher dose. Raw: Garlic, Cilantro, [place] nuts, Pumpkin seeds, [place] seeds and Flax seed powder have been reported to help with certain metal detoxification such as mercury. Monarch-3 plant based rich foods are good anti-inflammatory [...] the Whole Plant Based Diet, by watching [place] over Un-Lease.com movie and then review website. There are many other resources and educational information on the Whole plant based diet on the Internet and documentaries. There are other resources for wellness that you can also benefit from, such as the [facility] website, [facility]org and includes Plant based and Mediterranean diet, yoga and meditation. Please avoid all dairy products. You could use non-dairy milk such as Flax milk, Cashew milk, [place] milk, Rice milk, Oat milk or Hemp [...] following resources: www.nof.org (National Osteoporosis Foundation) http://www.osteo.org/osteolinks.asp [place] [facility]: 2-089-189-BONE [facility] Calcium Information [place]: -Non-Dairy, Plant based Milk, can contain in1 glass up to 450 mg of calcium (300 to 450 mg) Exampled include Oat Milk, Flax Milk, [place] Milk, Cashew Milk, Soy Milk, Peas Milk general health and well being Examples of Food Sources of Calcium from [facility] Food Milligrams (mg) per serving Percent DV* Soymilk, calcium-fortified, 8 ounces 299 30 Bamberg juice, calcium-fortified, 6 ounces 261 26 Tofu, firm, made with calcium sulfate, cup* 253 25 Tofu, soft, made with calcium sulfate, cup* 138 14 Bjjkb-vk-phl cereal, calcium-fortified, 1 cup 100-1,000 10-100 Turnip greens, fresh, boiled, cup 99 10 Kale, raw, chopped, 1 cup 100 10 Kale, fresh, cooked, 1 cup 94 9 [place]an cabbage, bok marin, raw, shredded, 1 cup 74 7 Bread, white, 1 slice 73 7 Tortilla, corn, yjcku-hz-hhxz/marshall, one 6 diameter 46 5 Tortilla, flour, wxmoj-mi-ynql/marshall, one 6 diameter 32 3 Bread, whole-wheat, [...] daily with a meal; Certain patients require 8820-6323 iu daily and in patients deficient in [...] bones. Studies show approximately 50% of [place] men and women are vitamin D deficient [...] www.nof.org (the national osteoporosis foundation) http://www.[facility].org/arthritis/osteo/info.htm http://ods.od.nih.gov/factsheets/vitamind.asp [place] [facility]: 5-691-837-BONE [facility] Calcium Information [place]: At the [facility], we work as a team for your care, along with Nurse Practitioners, PhysicianAssistants, Nurses and Medical Assistants. It is a privilege and honor to serve you. Thank you for choosing [facility] for your healthcare. Sincerely, Nidia Ascencio APRN.CNP documented in this encounterBellevue Hospital02-13-2023 History of Present illness Narrative* Nidia [...] in patient's severe chronic Rheumatoid Arthritis. His generator operator has switched him to Humira as he [...] IBD and intermittent steroid therapy from his generator operator. Pharmacologic therapy is still indicated and recommended, [...] if necessary, CC, NOF and ISCD and [facility]. PLAN: [facility] on 12/29/22 VITAMIN D 25 HYDROXY Please continue on yout Vitamin D 5000 international units once daily with meals and your multivitamin - You are on Humira and sulfasalazine for your Ulcerative Colitis. These are also treating your Rheumatoid Arthritis. During infections you will need to hold the Humira and sulfasalazine, but discuss first with your generator operator. Supplements recommended Vitamin B12: 500 to 1000 [...] looked into transition therapy. Recent study from [facility] Slim et al, 04/11/2020, reported one infusion [...] initiated in patients who have had an [place] orstroke in the preceding year. This is [...] which included preparing to see the patient, zidd-hn-azhh patient care, completing clinical documentation, obtaining and/or [...] the care of your patient. Nidia Ascencio APRN.[facility] cc Jose L Lackey MD, MD Patient Instructions -PLEASE NOTE THAT WE REVIEW ALL YOUR TEST RESULTS AT YOUR NEXT FOLLOW UP VISIT WITH YOU. IF ANY ABNORMAL LAB REQUIRES SOONER ATTENTION, WE WILL CONTACT YOU. -If you have signed up on MuseAmi, we will release your test results through MuseAmi. I wish you the best of health [...] and sulfasalazine, but discuss first with your generator operator. Supplements recommended Vitamin B12: 500 to 1000 [...] track your nutrition and calcium intake on [email or web address] This provides macro and micronutrient intake and requirements. - You can track your calcium intake on Kiddify or any other calcium tracker of your [...] now for a cost, such as at www.oNoise. -When eating a whole food plant based [...] track your nutrition and calcium intake on www.BurudaConcert.Academize This provides macro and micronutrient intake and [...] that features the Whole Plant Based diet, [place] over knives (see video online and visit website). Another movie that was recently released is: Eating You Alive (you can find it at Iizuu) and The [employer] ChangeGenero movie Dr. Fauzia Ansari is a [facility] physician who is an expert in Whole Plant based diet. His website is Beam Networks. His research highlights the benefits of the Whole food plant based diet in reversing and preventing heart disease. Mrs. Ansari (his ) has a cookbook with many recipes on whole plant based food: The Prevent and Reverse Heart Disease cookbook. You can also consider reading his son, Eze Ansair's book: The Engine 2 cookbook Eze is a retired telehealth nurse who has helped many people get healthier [...] free videos and YouTube, for example: ht tps://youApiFixu.be/uiiVvjqV9b5 , https://youApiFixu.be/TrLPLakyn0s He has written multiple books, including Power Brandsclub for the Brain, The Cheese Trap, Dr. Rock Velazco's Program for Reversing Diabetes, Your Body in Balance Dr. Anthony Carlson has shown the benefit of a starch based whole food plant based diet to his Rheumatoid Arthritis patients, as well as patient with diabetes II, hypertension, obesity, multiple sclerosis, heart disease, acne, and other, his website: www.Tosk.Academize Dr. Yayo Allred is a renowned animal scientist, who has studied and researched the benefits of the Whole plant based diet. He has also researched the adverse effects of animal proteins on health. He presents many of his research findings in his book The [place] study. Dr. Gerber Becker has completed many research trials proving the reversal of diseases, such as heart disease and early prostate cancer, with healthy lifestyle and the Whole Plant based diet. Dr. Gerber Becker website is: www.carmenTwin Star ECS.Academize His new book: Undo It, has evidence based information and guide to following this healthy lifestyle. Dr. Cody Dillon has dedicated a website and additional time to reviewing all food related articles and research and presents them in his power point presentation and on his website at: nutritionfacts.org which is all free. Dr. Dillon has multiple free videos and YouTube, for example https://youApiFixu.be/aSgNkhgVtks and https://youApiFixu.be/lXXXygDRyBU. He has written multiple books including: How Not To and How Not To Diet He is now working on his next book: How Not To Age Dr. Danitza Dash (from the [facility]), has articles on the following website: GeoQuip.Academize Also, you could find additional information on practical to follow recipes by reading or watching online and YouTube such as: Chef BELLE, Cooking With Plants, The Vegan Corner (recipes from an [place] Downstream Biomanufacturing Technician), The Whole Foods Plant Based Cooking Show and visiting the provided websites for additional information on the whole plant based benefit and cooking recipes. You can also consider watching the vlogs of some of the plant based Athletes such as Graeme Kamara, Agustin Lundy on Stylecrook. Dr. Maryan Holguin (a psychiatrist who suffered [...] - Gentle Yoga Anyone Can Do Anywhere www.[email or web address]/yoga Also on youtube: yoga with Karlie 3- [...] based diet, it is recommended to take LhwxdflF43, sublingual, dissolve under the tongue, take once daily. Vitamin B12 is available over the counter, dose could be 2500 mcg, and can be taken once a week, and if your blood levels are low, you mayneed to take it once daily or a higher dose. Raw: Garlic, Cilantro, Highland nuts, Pumpkin seeds, [place] seeds and Flax seed powder have been reported to help with certain metal detoxification such as mercury. Monarch-3 plant based rich foods are good anti-inflammatory [...] the Whole Plant Based Diet, by watching [place] over Un-Lease.com movie and then review website. There are many other resources and educational information on the Whole plant based diet on the Internet and documentaries. There are other resources for wellness that you can also benefit from, such as the [facility] website, [facility]org and includes Plant based and Mediterranean diet, yoga and meditation. Please avoid all dairy products. You could use non-dairy milk such as Flax milk, Cashew milk, [place] milk, Rice milk, Oat milk or Hemp [...] Osteoporosis Foundation) http://www.osteo.org/osteolinks.asp National Institutes of Health: 9-809-810-BONE The Calcium Information [place]: -Non-Dairy, Plant based Milk, can contain in1 glass up to 450 mg of calcium (300 to 450 mg) Exampled include Oat Milk, Flax Milk, [place] Milk, Cashew Milk, Soy Milk, Peas Milk general health and well being Examples of Food Sources of Calcium from [facility] Food Milligrams (mg) per serving Percent DV* Soymilk, calcium-fortified, 8 ounces 299 30 [place] juice, calcium-fortified, 6 ounces 261 26 Tofu, firm, made with calcium sulfate, cup* 253 25 Tofu, soft, made with calcium sulfate, cup* 138 14 Qdzuu-ww-bna cereal, calcium-fortified, 1 cup 100-1,000 10-100 Turnip greens, fresh, boiled, cup 99 10 Kale, raw, chopped, 1 cup 100 10 Kale, fresh, cooked, 1 cup 94 9 Singaporean cabbage, bok marin, raw, shredded, 1 cup 74 7 Bread, white, 1 slice 73 7 Tortilla, corn, bsuha-ou-mzvw/marshall, one 6 diameter 46 5 Tortilla, flour, eqwdq-ue-ngee/marshall, one 6 diameter 32 3 Bread, whole-wheat, [...] daily with a meal; Certain patients require 5711-4407 iu daily and in patients deficient in [...] bones. Studies show approximately 50% of [place] men and women are vitamin D deficient [...] foundation) http://www.[facility].org/arthritis/osteo/info.htm http://ods.od.nih.gov/factsheets/vitamind.asp National Institutes of Health: 5-223-134-BONE The Calcium Information Center: At the [facility], we work as a team for your care, along with Nurse Practitioners, PhysicianAssistants, Nurses and Medical Assistants. It is a privilege and honor to serve you. Thank you for choosing [facility] for your healthcare. Sincerely, Nidia Ascencio APRN.WEATHER REPORTER PAST MEDICAL HISTORY Diagnosis Date Monoclonal gammopathy [...] mg subcutaneously every 2 weeks. Prescribed by Store Product Demonstrator : Nel Lebron MD Previously prescr. by [...] (3 in am, 3 noon,2 pm), per generator operator No current facility-administered medications for this visit. [...] developed and its performance characteristics determined by [facility] [place] ([facility]). It has not been cleared or approved by the FDA. -[facility] is regulated under CLIA as [...] 147 53 - 334 mg/dL Final MPA Congers, Serum Date Value Ref Range Status 08/19/2018 1,020 534 - 1,267 mg/dL Final MPA Lambda, Serum Date Value Ref Range Status 08/19/2018 551 253 - 653 mg/dL Final MPA Congers/Lambda Ratio Date Value Ref Range Status 08/19/2018 [...] DATE OF EXAM: Sep 23 2022 10:03AM [facility] 0804 - BD DXA - AXIAL SKELETON / PROCEDURE REASON: multiple diagnoses * * * * Physician Interpretation * * * * EXAMINATION: DXA BONE DENSITOMETRY BD DXA - AXIAL SKELETON PATIENT DEMOGRAPHICS: Age: 57 years, Race: , Gender: Male SCANNER INFORMATION: DXA Model: Interact.io W [id number] SITE SCANNED: Lumbar spine and left hip [...] machine for accurate comparison. FOR MORE INFORMATION: [facility] for Osteoporosis and Metabolic Bone Disease: www.ccf.org/arthritis/osteo National Osteoporosis Foundation: www.nof.org International Society of Clinical Densitometry www.iscd.org Facility Manager Histology: [id number] Transcribe Date/Time: Sep 23 2022 10:28A Dictated by : DARRIAN DUBON MD This examination was interpreted and the report reviewed and electronically signed by: DARRIAN DUBON MD on Sep 28 2022 6:46PM EST [facility] History of Present illness Narrative* Blayne [...] 23, 2022 9:54 AM documented in [facility]03-28-2022 Miscellaneous Notes* Telephone Encounter - Estefanía [...] thank you kindly, fa documented [facility] History of Present illness Narrative* Carolina FernándezPoll EverywhereBriana Reyes - 08/22/2020 10:05 AM EDT Radiology [...] 22, 2020 10:20 AM documented in [facility] encounterB[facility] Hospital[facility]* Diagnosis Rheumatoid arthritis involving multiple sites with positive rheumatoid factor (HCC)- Primary Vitamin D deficiency Unspecified vitamin D deficiency Encounter to discuss test results Other specified counseling Encounter for medication review and counseling Other specified counseling Counseling on health promotion and disease prevention Other specified counseling Other osteoporosis without current pathological fracture [facility] Diagnosis Rheumatoid arthritis involving multiple sites with positive rheumatoid factor (HCC)- Primary Encounter to discuss test results Other specified counseling Counseling on health promotion and disease prevention Other specified counseling Ulcerative pancolitis (HCC) [place] ulcerative (chronic) colitis Other osteoporosis without current pathological fracture [facility] Diagnosis Rheumatoid arthritis involving multiple sites with positive rheumatoid factor (HCC)- Primary Encounter to discuss test results Other specified counseling Counseling on health promotion and disease prevention Other specified counseling Ulcerative pancolitis (HCC) [place] ulcerative (chronic) colitis Vitamin D deficiency Unspecified vitamin D deficiency On sulfasalazine therapy Encounter for medication review and counseling Other specified counseling Other osteoporosis without current pathological fracture Elevated serum immunoglobulin free light chain level Other nonspecific findings on examination of blood documented [facility] this [facility]* Diagnosis Seropositive rheumatoid arthritis (HCC) Rheumatoid arthritis Other osteoporosis without current pathological fracture Chronic pain of left ankle Ankle deformity, left Pes planus, unspecified laterality Other secondary osteoarthritis of multiple sites [facility] Diagnosis Rheumatoid arthritis involving multiple sites with positive rheumatoid factor (HCC) Other osteoporosis without current pathological fracture High risk for hip fracture Other specified conditions influencing health status Vitamin D deficiency, hx Unspecified vitamin D deficiency [facility]* Diagnosis Other osteoporosis without current pathological fracture High risk for hip fracture Other specified conditions influencing health status Bone loss Other disorders of bone and cartilage Vitamin D deficiency, hx Unspecified vitamin D deficiency [facility] Diagnosis Elevated alkaline phosphatase level- Primary Other nonspecific abnormal serum enzyme levels [facility] Diagnosis Rheumatoid arthritis involving multiple sites with positive rheumatoid factor (HCC) [facility] Diagnosis Rheumatoid arthritis involving multiple sites with positive rheumatoid factor (HCC)- Primary Vitamin D deficiency Unspecified vitamin D deficiency Other osteoporosis without current pathological fracture Encounter for medication review and counseling Other specified counseling Rheumatoid arthritis involving multiple sites with positive rheumatoid factor (HCC) [facility] Diagnosis Foreign body of left hand, sequela- Primary [facility] Diagnosis Rheumatoid arthritis involving multiple sites with positive rheumatoid factor (HCC)- Primary Vitamin D deficiency Unspecified vitamin D deficiency Other osteoporosis without current pathological fracture [facility] Diagnosis Seropositive rheumatoid arthritis (HCC)- Primary Rheumatoid arthritis Rheumatoid arthritis involving multiple sites with positive rheumatoid factor (HCC) On sulfasalazine therapy Ulcerative pancolitis (HCC) [place] ulcerative (chronic) colitis Other osteoporosis without current pathological fracture History of bisphosphonate therapy Personal history of other drug therapy Counseling on health promotion and disease prevention Other specified counseling [facility] Diagnosis Other osteoporosis without current pathological fracture- Primary [facility] Diagnosis Seropositive rheumatoid arthritis (HCC)- Primary Rheumatoid arthritis Rheumatoid arthritis involving multiple sites with positive rheumatoid factor (HCC) On sulfasalazine therapy Ulcerative pancolitis (HCC) [place] ulcerative (chronic) colitis Other osteoporosis without current pathological fracture History of bisphosphonate therapy Personal history of other drug therapy Encounter to discuss test results Other specified counseling Encounter for medication review and counseling Other specified counseling Counseling on health promotion and disease prevention Other specified counseling documented in this encounter [facility] note* Diagnosis Pain of right hip- Primary Primary osteoarthritis of right hip Arthritis of knee, left History of total hip replacement, right [facility] Diagnosis Pain and swelling of right knee- Primary History of total left knee replacement History of total right knee replacement Pain and swelling of left knee [facility]* Diagnosis Seropositive rheumatoid arthritis (HCC) Rheumatoid arthritis Ulcerative pancolitis (HCC) [place] ulcerative (chronic) colitis Other osteoporosis without current pathological fracture History of bisphosphonate therapy Personal history of other drug therapy [facility] Diagnosis Seropositive rheumatoid arthritis (HCC)- Primary Rheumatoid arthritis Rheumatoid arthritis involving multiple sites with positive rheumatoid factor (HCC) On methotrexate therapy On sulfasalazine therapy Ulcerative pancolitis (HCC) [place] ulcerative (chronic) colitis Osteopenia of multiple sites History of osteoporosis Personal history of other musculoskeletal disorders History of bisphosphonate therapy Personal history of other drug therapy Encounter to discuss test results Other specified counseling Encounter for medication review and counseling Other specified counseling Counseling on health promotion and disease prevention Other specified counseling documented in this encounter [facility] for referral (narrative)* Diagnostic Procedure Only (Routine) - ClosedSpecialtyDiagnoses / ProceduresReferred By ContactReferred To ContactXR IMAGING Diagnoses Rheumatoid arthritis involving multiple sites with positive rheumatoid factor (HCC) Procedures XR HAND GENERAL 3V PA/LAT/OBL BILATERAL RADEX HAND MINIMUM 3 VIEWS Silva, Nidia M, COVERAGE SPECIALIST.WEATHER REPORTER [address] [facility] [place] [place] [address] [place] [address] Referral IDStatusReasonStart DateExpiration DateVisits RequestedVisits [id number] Auto-Generated Referral [facility] for referral (narrative)* Diagnostic Procedure Only (Routine) - ClosedSpecialtyDiagnoses / ProceduresReferred By ContactReferred To ContactXR IMAGING Diagnoses Rheumatoid arthritis involving multiple sites with positive rheumatoid factor (HCC) Procedures XR HAND GENERAL 3V PA/LAT/OBL BILATERAL RADEX HAND MINIMUM 3 VIEWS Nidia Ascencio APRN.WEATHER REPORTER [address] [facility] [place] [address] [place] [address] Referral IDStatusReasonStart DateExpiration DateVisits RequestedVisits [id number] Auto-Generated Referral * Diagnostic Procedure Only (Routine) - Pending ReviewSpecialtyDiagnoses / ProceduresReferred By ContactReferred To ContactXR IMAGING Diagnoses Rheumatoid arthritis involving multiple sites with positive rheumatoid factor (HCC) Procedures XR HAND GENERAL 3V PA/LAT/OBL BILATERAL RADEX HAND MINIMUM 3 VIEWS Nidia Ascencio, COVERAGE SPECIALIST.WEATHER REPORTER [address] [facility] [address] [place] [address] Referral IDStatusReasonStart DateExpiration DateVisits RequestedVisits [id number] Auto-Generated Referral [facility] for referral (narrative)* Diagnostic Procedure Only (Routine) - Pending ReviewSpecialtyDiagnoses / ProceduresReferred By Contact Referred To ContactXR IMAGING Diagnoses Seropositive rheumatoid arthritis (HCC) Ulcerative pancolitis (HCC) Other osteoporosis without current pathological fracture History of bisphosphonate therapy Procedures DXA-AXIAL SKELETON DXA BONE DENSITY STUDY 1/> SITES AXIAL Darrian Tran MD [address] [place] [address] [place] [address] Referral IDStatusReasonStart DateExpiration DateVisits RequestedVisits [id number] Review Auto-Generated Referral [facility] for visit Narrative* Diagnostic Procedure Only (Routine) - ClosedSpecialtyDiagnoses / ProceduresReferred By ContactReferred To Contact XR IMAGING Diagnoses Rheumatoid arthritis involving multiple sites with positive rheumatoid factor (HCC) Procedures XR HAND GENERAL 3V PA/LAT/OBL BILATERAL RADEX HAND MINIMUM 3 VIEWS Nidia Ascencio, COVERAGE SPECIALIST.WEATHER REPORTER [address] [place] [address] [place] [address] Referral IDStatusReasonStel sobrante DateExpiration DateVisits RequestedVisits [id number] Auto-Generated Referral [facility] for visit Narrative* Diagnostic Procedure Only (Routine) - ClosedSpecialtyDiagnoses / ProceduresReferred By ContactReferred To Contact XR IMAGING Diagnoses Seropositive rheumatoid arthritis (HCC) Ulcerative pancolitis (HCC) Other osteoporosis without current pathological fracture History of bisphosphonate therapy Procedures DXA-AXIAL SKELETON DXA BONE DENSITY STUDY 1/> SITES AXIAL Darrian Tran MD [address] [facility] [address] Phone: tel: fax: [place] [address] Referral IDStatusReasonStart DateExpiration DateVisits RequestedVisits [id number] Auto-Generated Referral [facility] Advance Directives No Advanced Directives Records [...] phosphatase level Procedures CONSULT TO HEPATOLOGY OFFICE/OUTPATIENT [facility] 60 MINUTES Nidia Ascencio, COVERAGE SPECIALIST.WEATHER REPORTER [address] [place] [address] Referral IDStatusReasonStart DateExpiration DateVisits RequestedVisits [id number] PCP Requested Referral /[id number] / ProceduresReferred By ContactReferred To ContactOrthopedics Diagnoses Foreign body of left hand, sequela Procedures CONSULT TO ORTHOPAEDICS OFFICE/OUTPATIENT [facility] 60 MINUTES Nidia Ascencio, COVERAGE SPECIALIST.WEATHER REPORTER [address] [place] [address] Referral IDStatusReasonStart DateExpiration DateVisits RequestedVisits [id number] PCP Requested Referral / Additional Source Comments [...] section and content) DATE CREATED AUTHOR 11/30/2021 [facility] DATE CREATED AUTHOR AUTHOR'S ORGANIZ ATION 02/20/2023 [facility] DATE CREATED AUTHOR AUTHOR'S ORGANIZ ATION 06/09/2024 [facility] DATE CREATED AUTHOR AUTHOR'S ORGANIZ ATION 12/16/2024 [facility] DATE CREATED AUTHOR AUTHOR'S ORGANIZ ATION 12/17/2024 [facility] DATE CREATED AUTHOR AUTHOR'S ORGANIZ ATION 05/08/2025 [facility] DATE CREATED AUTHOR AUTHOR'S ORGANIZ ATION 05/18/2025 [facility] DATE CREATED AUTHOR AUTHOR'S ORGANIZ ATION 06/13/2025 [facility] DATE CREATED AUTHOR AUTHOR'S ORGANIZ ATION 06/16/2025 [facility] DATE CREATED AUTHOR AUTHOR'S ORGANIZ ATION 08/01/2025 [facility] DATE CREATED AUTHOR AUTHOR'S ORGANIZ ATION 09/02/2025 [facility] DATE CREATED AUTHOR AUTHOR'S ORGANIZ ATION 09/16/2025 [facility] Source Comments (unrecognize d section and content) In the event this informatio n is protected by the Federal Confidentiality of Alcohol and Drug Abuse Patient Records regulations: The Federal rules restrict any use of the information to criminally investigate or prosecute any alcohol or drug abuse patient.[facility] HospitalIn the event this information is protected by the Federal Confidentiality of Alcohol and Drug Abuse Patient Records regulations: The Federal rules restrict any use of the information to criminally investigate or prosecute any alcohol or drug abuse patient.[facility] HospitalIn the event this information is protected by the Federal Confidentiality of Alcohol and Drug Abuse Patient Records regulations: The Federal rules restrict any use of the information to criminally investigate or prosecute any alcohol or drug abuse patient.[facility] HospitalIn the event this information is protected by the Federal Confidentiality of Alcohol and Drug Abuse Patient Records regulations: The Federal rules restrict any use of the information to criminally investigate or prosecute any alcohol or drug abuse patient.[facility] HospitalIn the event this information is protected by the Federal Confidentiality of Alcohol and Drug Abuse Patient Records regulations: The Federal rules restrict any use of the information to criminally investigate or prosecute any alcohol or drug abuse patient.[facility] HospitalIn the event this information is protected by the Federal Confidentiality of Alcohol and Drug Abuse Patient Records regulations: The Federal rules restrict any use of the information to criminally investigate or prosecute any alcohol or drug abuse patient.[facility] HospitalIn the event this information is protected by the Federal Confidentiality of Alcohol and Drug Abuse Patient Records regulations: The Federal rules restrict any use of the information to criminally investigate or prosecute any alcohol or drug abuse patient.[facility] HospitalIn the event this information is protected by the Federal Confidentiality of Alcohol and Drug Abuse Patient Records regulations: The Federal rules restrict any use of the information to criminally investigate or prosecute any alcohol or drug abuse patient.[facility] HospitalIn the event this information is protected by the Federal Confidentiality of Alcohol and Drug Abuse Patient Records regulations: The Federal rules restrict any use of the information to criminally investigate or prosecute any alcohol or drug abuse patient.[facility] HospitalIn the event this information is protected by the Federal Confidentiality of Alcohol and Drug Abuse Patient Records regulations: The Federal rules restrict any use of the information to criminally investigate or prosecute any alcohol or drug abuse patient.[facility] HospitalIn the event this information is protected by the Federal Confidentiality of Alcohol and Drug Abuse Patient Records regulations: The Federal rules restrict any use of the information to criminally investigate or prosecute any alcohol or drug abuse patient.[facility] HospitalIn the event this information is protected by the Federal Confidentiality of Alcohol and Drug Abuse Patient Records regulations: The Federal rules restrict any use of the information to criminally investigate or prosecute any alcohol or drug abuse patient.[facility] HospitalIn the event this information is protected by the Federal Confidentiality of Alcohol and Drug Abuse Patient Records regulations: The Federal rules restrict any use of the information to criminally investigate or prosecute any alcohol or drug abuse patient.[facility] HospitalIn the event this information is protected by the Federal Confidentiality of Alcohol and Drug Abuse Patient Records regulations: The Federal rules restrict any use of the information to criminally investigate or prosecute any alcohol or drug abuse patient.[facility] HospitalIn the event this information is protected by the Federal Confidentiality of Alcohol and Drug Abuse Patient Records regulations: The Federal rules restrict any use of the information to criminally investigate or prosecute any alcohol or drug abuse patient.[facility] HospitalIn the event this information is protected by the Federal Confidentiality of Alcohol and Drug Abuse Patient Records regulations: The Federal rules restrict any use of the information to criminally investigate or prosecute any alcohol or drug abuse patient.[facility] HospitalIn the event this information is protected by the Federal Confidentiality of Alcohol and Drug Abuse Patient Records regulations: The Federal rules restrict any use of the information to criminally investigate or prosecute any alcohol or drug abuse patient.[facility] HospitalIn the event this information is protected by the Federal Confidentiality of Alcohol and Drug Abuse Patient Records regulations: The Federal rules restrict any use of the information to criminally investigate or prosecute any alcohol or drug abuse patient.[facility] HospitalIn the event this information is protected by the Federal Confidentiality of Alcohol and Drug Abuse Patient Records regulations: The Federal rules restrict any use of the information to criminally investigate or prosecute any alcohol or drug abuse patient.[facility] HospitalIn the event this information is protected by the Federal Confidentiality of Alcohol and Drug Abuse Patient Records regulations: The Federal rules restrict any use of the information to criminally investigate or prosecute any alcohol or drug abuse patient.[facility] HospitalIn the event this information is protected by the Federal Confidentiality of Alcohol and Drug Abuse Patient Records regulations: The Federal rules restrict any use of the information to criminally investigate or prosecute any alcohol or drug abuse patient.[facility] Reason for Visit (unrecogniz ed section and content) ReasonCommentsResultsReasonCommentsFollow UpReasonCommentsOutside Lab ResultsVit DReasonCommentsPatient UpdateReasonCommentsRadiology XRReasonCommentsRadiology BMDReasonCommentsFollow UpRheumatoid Arthritis and OsteoporosisReasonComments Patient UpdateReasonCommentsResultsLabsReasonCommentsF/U 1 monthRA -Reason CommentsFollow UpReasonCommentsInfusionSpecialtyDiagnoses / ProceduresReferred By ContactReferred To Contact Diagnoses Other osteoporosis without current pathological fracture Procedures INJECTION, ZOLEDRONIC ACID, 1 MG Nidia Ascencio, COVERAGE SPECIALIST.WEATHER REPORTER [address] [place] [address] Rhe[facility] Infusion [facility] Maria De Jesus [address] [place] [address] Referral IDStatusReasonStart DateExpiration DateVisits RequestedVisits [id number] Follow-up Care Teams (unrecognized sec tion and [...] MemberRelationshipSpecialtyStart DateEnd Date Jose L Lackey MD [facility]01/18/14Te MemberRelationshipSpecialtyStart DateEnd Date Jose L Lackey MD [facility]01/18/14Te MemberRelationshipSpecialtyStart DateEnd Date Jose L Lackey MD [facility]04/21/23 MemberRelationshipSpecialtyStart DateEnd Date Jose L Lackey MD [facility]04/21/23Te MemberRelationshipSpecialtyStart DateEnd Date Jose L Lackey MD [facility]04/21/23 MemberRelationshipSpecialtyStart DateEnd Date Jose L Lackey MD [facility]04/21/23Te MemberRelationshipSpecialtyStart DateEnd Date Jose L Lackey MD [facility]01/18/14Te MemberRelationshipSpecialtyStart DateEnd Date Jose L Lackey MD [facility]01/18/14 FOR RECORDS PERTAINING TO PATIENTS WHO [...] BE BASED ON THE PRIMARY CLINICAL RECORDS. [facility] [employer] [facility]. provides no warranty or guarantee of the accuracy or completeness of information in this document.
[2025-10-17 12:06] LABS: Hematocrit 37.2 % (42.0-54.0); Hemoglobin 12.9 g/dL (14.0-18.0); Immature Granulocytes Abs Auto 0.03 10^3/uL (0.00-0.03); Immature Granulocytes Pct Auto 0.3 % (0.0-0.5); Lymphocytes Absolute Auto 2.4 10^3/uL (1.2-3.8); Mean Corpuscular HGB Conc 34.7 g/dL (29.9-35.2); Mean Corpuscular Hemoglobin 35.0 pg (25.9-34.0); Mean Corpuscular Volume 100.8 fL (80.0-94.0); Platelet Count 252 10^3/uL (150-450); Red Blood Count 3.69 10^6/uL (4.70-6.10); White Blood Count 10.2 10^3/uL (4.0-11.0)
[2025-10-17 12:28] LABS: Alanine Aminotransferase 34 U/L (16-63); Albumin Globulin Ratio 1.0; Albumin Level 3.5 g/dL (3.4-5.0); Alkaline Phosphatase 108 U/L (46-116); Anion Gap 12.3; Aspartate Amino Transferase 22 U/L (15-37); Blood Urea Nitrogen 10.0 mg/dL (7.0-18.0); Calcium 9.4 mg/dL (8.5-10.1); Carbon Dioxide 29.4 mmol/L (21.0-32.0); Chloride 106 mmol/L (98-107); Estimated GFR (African America >60 (>=60 mL/min/1.73m^2); Estimated GFR (Non-African Ame >60 (>=60 mL/min/1.73m^2); Globulin 3.5 g/dL; Glucose 65 mg/dL (74-106); Potassium 3.7 mmol/L (3.5-5.1); Sodium 144 mmol/L (136-145); Total Protein 7.0 g/dL (6.4-8.2)
[2025-10-17 12:34] LABS: Iron 116.0 ug/dL (65.0-175.0)
== END 2025-10-17 11:39 | disposition home or self-care (01) ==
LOC: LAB 11:41
PROVIDERS: PCP Family Medicine; Visit Provider Family Medicine
DX: Z79.899 Other long term (current) drug therapy (principal); D50.9 Iron deficiency anemia, unspecified
CPT/HCPCS: 36415; 80053; 83540; 85025